=== PATIENT | male | born 1940 | race Caucasian/White ===

== ENCOUNTER 2017-07-30 10:15 | Outpatient (RCR) | payer MEDICARE, OTHER, SELFPAY ==
[2017-06-30 01:21] VITALS: BP 160/80
--- NOTE | 2017-07-30 13:33 | PCM.CR.ITP ---
Exercise - Initial Assessment - Stages of Change Stages of Change:: Contemplate - Exercise Prescription Mode:: Treadmill, Biodyne, Airdyne, NuStep, Arm Ergometer Angina with exercise?: No - Hypertension Do any of the following apply?: Yes - Intervention Home Exercise/Activity Goal:: Sitting Time <3 hrs/day - Education Goals:: Warm-up, RPE SEKOU Scale, S/S, Safe Exercise, Self-Monitoring - Exercise Program Goals Exercise Program Goals: Aerobic Activity >30 min, B/P <140/90 Exercise - 30-day Assessment - Visit Date of Eval: 06/27/17 - Stages of Change Stages of Change:: Action - Exercise Prescription Mode:: Treadmill, Rower, Airdyne, NuStep Frequency (x/week): 3 Duration:: 35 METs - Progression: 0.5-1 MET as tolerated: 4.5 Target Heart Rate:: 108-116 Max HR 113 - Intervention Home Exercise/Activity Goal:: Sitting Time <3 hrs/day - Education Goals:: Warm-up, RPE SEKOU Scale, S/S, Safe Exercise, Self-Monitoring - Exercise Program Goals Exercise Program Goals: Aerobic Activity >30 min Exercise - 60-Day Assessment - Visit Date of Eval: 07/30/17 Session #:: 27 - Stages of Change Stages of Change:: Action - Exercise Prescription Mode:: Treadmill, Airdyne, NuStep Frequency (x/week): 3 Duration:: 30 METs: 5.5 Target Heart Rate:: 108-116 max HR 111 - Hypertension Resting Blood Pressure:: 146/50 Peak Exercise Blood Pressure:: 170/84 Medication Changes:: No - Intervention Home Exercise/Activity Goal:: Moderate Exercise 30 min/day x 5 days/wk - Education Goals:: Warm-up, RPE SEKOU Scale, S/S, Safe Exercise, Self-Monitoring - Exercise Program Goals Exercise Program Goals: Aerobic Activity >30 min Exercise - Final/Discharge - Hypertension Do any of the following apply?: Yes Nutrition - Initial Assessment - Program Goals Nutrition Program Goals: LDL <70. Total Cholesterol <200. HDL >45. Triglycerides <150. HgbA1C <7%. BMI <25 - Stages of Change Stages of Change:: Contemplate - Diabetes Diabetes:: No Non-Insulin Dependent?: No - Weight Management Total Score:: 2 - Intervention Referral to dietitian:: No Referral to Diabetic Clinic:: No Will attend diet classes:: Yes - Education Gave educational materials for:: Signs & symptoms of hypoglycemia, Signs & symptoms of hyperglycemia, Relate diabetes to coronary artery disease, Healthy eating Nutrition - 30-Day Assessment - Program Goals Nutrition Program Goals: LDL <70. Total Cholesterol <200. HDL >45. Triglycerides <150. HgbA1C <7%. BMI <25 - Stages of Change Stages of Change:: Action - Lipids Has the patient seen the dietitian?: No - Diabetes Diabetes:: No Insulin: No Non-Insulin Dependent?: No - Intervention Referral to dietitian:: No Referral to Diabetic Clinic:: No Will attend diet classes:: Yes - Education Attended class for:: Signs & symptoms of hypoglycemia, Signs & symptoms of hyperglycemia, Relate diabetes to coronary artery disease, Healthy eating Nutrition - 60-Day Assessment - Program Goals Nutrition Program Goals: LDL <70. Total Cholesterol <200. HDL >45. Triglycerides <150. HgbA1C <7%. BMI <25 - Visit Date of Eval: 07/30/17 - session # 27 - Stages of Change Stages of Change:: Action - Lipids Has the patient seen the dietitian?: No - Diabetes Diabetes:: No Insulin: No Non-Insulin Dependent?: No - Weight Management Weight:: 84.368 kg - stable - Intervention Referral to dietitian:: No Referral to Diabetic Clinic:: No Will attend diet classes:: Yes - Education Attended class for:: Signs & symptoms of hypoglycemia, Signs & symptoms of hyperglycemia, Relate diabetes to coronary artery disease, Healthy eating Nutrition - 90-Day Assessment - Program Goals Nutrition Program Goals: LDL <70. Total Cholesterol <200. HDL >45. Triglycerides <150. HgbA1C <7%. BMI <25 - Lipids Has the patient seen the dietitian?: No - Diabetes Diabetes:: No Insulin: No Non-Insulin Dependent?: No - Intervention Referral to dietitian:: No Referral to Diabetic Clinic:: No Will attend diet classes:: Yes - Education Attended class for:: Signs & symptoms of hypoglycemia, Signs & symptoms of hyperglycemia, Relate diabetes to coronary artery disease, Healthy eating Nutrition - Final Assessment - Program Goals Nutrition Program Goals: LDL <70. Total Cholesterol <200. HDL >45. Triglycerides <150. HgbA1C <7%. BMI <25 - Diabetes Diabetes:: No Insulin: No Non-Insulin Dependent?: No - Weight Management Total Score:: 2 - Intervention Referral to dietitian:: No Referral to Diabetic Clinic:: No Will attend diet classes:: Yes Tobacco - Initial Assessment - Program Goals Tobacco Program Goals: Complete smoking cessation. Attend education classes. Improve Knowledge Test score - Stage of Change Stages of Change:: Contemplate - Learning Barriers Learning Barriers: Vision Total Score:: 9 - Family Support Do you have family support?: Yes - Tobacco Use Tobacco Use: Non-smoker Do you use smokeless tobacco?: No - Intervention Smoking Cessation Referral:: No Individual Education/Counseling:: No Education Schedule Given:: Yes - Education Gave educational material for:: Tobacco triggers, Coronary artery disease, Risk factors, Sexuality, Medical compliance, Cardiac A&P, Angina signs & symptoms Tobacco - 30-Day Assessment - Program Goals Tobacco Program Goals: Complete smoking cessation. Attend education classes. Improve Knowledge Test score - Stage of Change Stages of Change:: Action - Learning Barriers Learning Barriers: Participates in education - Family Support Do you have family support?: Yes - Tobacco Use Tobacco Use: Non-smoker Do you use smokeless tobacco?: No - Intervention Smoking Cessation Referral:: No Individual Education/Counseling:: No Education Schedule Given:: Yes - Education Attended class for:: Tobacco triggers, Coronary artery disease, Risk factors, Sexuality, Medical compliance, Cardiac A&P, Angina signs & symptoms Tobacco - 60-Day Assessment - Program Goals Tobacco Program Goals: Complete smoking cessation. Attend education classes. Improve Knowledge Test score - Stage of Change Stages of Change:: Action - Learning Barriers Learning Barriers: Participates in education - Family Support Do you have family support?: Yes - Tobacco Use Tobacco Use: Non-smoker Do you use smokeless tobacco?: No - Intervention Smoking Cessation Referral:: No Individual Education/Counseling:: No Education Schedule Given:: Yes - Education Attended class for:: Tobacco triggers, Coronary artery disease, Risk factors, Sexuality, Medical compliance, Cardiac A&P, Angina signs & symptoms Tobacco - 90-Day Assessment - Program Goals Tobacco Program Goals: Complete smoking cessation. Attend education classes. Improve Knowledge Test score - Family Support Do you have family support?: Yes - Tobacco Use Tobacco Use: Non-smoker Do you use smokeless tobacco?: No - Intervention Smoking Cessation Referral:: No Individual Education/Counseling:: No Education Schedule Given:: Yes - Education Attended class for:: Tobacco triggers, Coronary artery disease, Risk factors, Sexuality, Medical compliance, Cardiac A&P, Angina signs & symptoms Tobacco - Final Assessment - Program Goals Tobacco Program Goals: Complete smoking cessation. Attend education classes. Improve Knowledge Test score - Learning Barriers Cardiac Knowledge Test Score:: 9 - Family Support Do you have family support?: Yes - Tobacco Use Tobacco Use: Non-smoker Do you use smokeless tobacco?: No - Intervention Smoking Cessation Referral:: No Individual Education/Counseling:: No Education Schedule Given:: Yes Psychosocial - Initial Assess - Target Goals Target Goals: Assess presence or absence of depression. Using a valid screening tool, maximizes coping skills. Positive support system - Stages of Change Stages of Change:: Contemplate - Psychosocial Test Tool Used:: HANDS Depression Questionnaire Tests Completed: SF - 36 survey completed Total Mood Screening Score:: 0 Self-Efficacy Score:: 10 - Education Gave educational materials for:: Coping techniques, Signs & symptoms of depression, Stress management, Relaxation techniques - Patient/Program Goal Preventative Medication(s):: Aspirin, STARR inhibitor, Clopidogrel, Beta anna, Statin/lipid - Assistive Devices Assistive Devices:: None Fall Risk Assessed:: Yes Psychosocial - 30-Day Assess - Target Goals Target Goals: Assess presence or absence of depression. Using a valid screening tool, maximizes coping skills. Positive support system - Psychosocial Test Tool Used:: HANDS Depression Questionnaire Total Mood Screening Score:: 0 Self-Efficacy Score:: 10 - Patient/Program Goal Preventative Medication(s):: Aspirin, STARR inhibitor, Clopidogrel, Beta anna, Statin/lipid - Assistive Devices Assistive Devices:: None Fall Risk Assessed:: Yes Psychosocial - 60-Day Assess - Target Goals Target Goals: Assess presence or absence of depression. Using a valid screening tool, maximizes coping skills. Positive support system - Stages of Change Stages of Change:: Action - Psychosocial Test Tool Used:: HANDS Depression Questionnaire Total Mood Screening Score:: 0 Self-Efficacy Score:: 10 - Intervention PS - Interventions: Yes Attend Stress Management Classes, Yes Uses Stress Management Skills, No Referral to Mental Health, No Referral to [facility] Case Management, No Referral to Physician - Education Attended classes for:: Coping techniques, Signs & symptoms of depression, Stress management, Relaxation techniques - Patient/Program Goal Preventative Medication(s):: Aspirin, STARR inhibitor, Clopidogrel, Beta anna, Statin/lipid - Assistive Devices Assistive Devices:: None Fall Risk Assessed:: Yes Psychosocial - 90-Day Assess - Target Goals Target Goals: Assess presence or absence of depression. Using a valid screening tool, maximizes coping skills. Positive support system - Psychosocial Test Tool Used:: HANDS Depression Questionnaire Total Mood Screening Score:: 0 Self-Efficacy Score:: 10 - Education Attended classes for:: Coping techniques, Signs & symptoms of depression, Stress management, Relaxation techniques - Patient/Program Goal Preventative Medication(s):: Aspirin, STARR inhibitor, Clopidogrel, Beta anna, Statin/lipid - Assistive Devices Assistive Devices:: None Fall Risk Assessed:: Yes Psychosocial - Final Assessmen - Target Goals Target Goals: Assess presence or absence of depression. Using a valid screening tool, maximizes coping skills. Positive support system - Psychosocial Test Tool Used:: HANDS Depression Questionnaire Tests Completed: SF - 36 survey completed Total Mood Screening Score:: 0 Self-Efficacy Score:: 10 - Patient/Program Goal Preventative Medication(s):: Aspirin, STARR inhibitor, Clopidogrel, Beta anna, Statin/lipid - Assistive Devices Assistive Devices:: None Fall Risk Assessed:: Yes Patient Health Questionnaire 60-Day Re-eval Assessment 1. Little interest or pleasure in doing things: Not at all 2. Feeling down, depressed, or hopeless: Not at all 3. Trouble falling or staying asleep, or sleeping too much: Not at all 4. Feeling tired or having little energy: Not at all 5. Poor appetite or overeating: Not at all 6. Feeling bad about yourself -- or that you are a failure or have let yourself or your family down: Not at all 7. Trouble concentrating on things, such as reading the newspaper or watching television: Not at all 8. Moving or speaking so slowly that other people could have noticed. Or the opposite - being so fidgety or restless that you have been moving around a lot more than usual: Not at all 9. Thoughts that you would be better off , or of hurting yourself in some way: Not at all Total Score: 0 Self-Efficacy 60-Day Re-eval Assessment We would like to know how confident you are in doing certain activities. Please select your confidence level for:: Select your confidence level for the following using the scale 1-10 where 1 is not at all confident and 10 is totally confident. Your score is the average of all 6 responses. Fatigue: How confident are you that you can keep the fatigue caused by your disease from interfering with the things you want to do? Select Number: 10 Physical Discomfort or Pain: How confident are you that you can keep the physical discomfort or pain of your disease from interfering with the things you want to do? Select Number: 10 Emotional Distress: How confident are you that you can keep the emotional distress caused by your disease from interfering with the things you want to do? Select Number: 10 Other Symptoms or Health Problems: How confident are you that you can keep other symptoms or health problems from interfering with the things you want to do? Select Number: 10 Different Tasks and Activities: How confident are you that you can do the different tasks and activities needed to manage your health condition so as to reduce your need to see a doctor? Select Number: 10 Medication: How confident are you that you can do things other than just taking medication to reduce how much your illness affects your everyday life? Select Number: 10 Total Score:: 10 Cardiac Rehabilitation Goals - Cardiac Rehab Goals Cardiac Rehabilitation Goals: 1. Maintain the individual as the primary focus of care. 2. To improve the patient's quality of life. 3. Identification of cardiac risk factors and provide cardiac risk factor management. 4. Enhance the psychosocial status of the patient. 5. Reconditioning enough to allow the patient to resume customary activities. 6. Control symptoms of cardiac disease - Scale Scale for measuring improvement of personal goals: Enter appropriate number in Comments. 2 = Unchanged. 3 = Slightly Better. 4 = Moderate Improvement. 5 = Met my Goal 60-Day Re-eval Assessment Personal Goals: 60-day Re-assessment: Improve energy level - goal met, Improve knowledge of cardiac disease - still learning, Improve muscle strength and endurance - feel much stronger, Improve diet and eating habits (eat healthier) - eating healthier, Control risk factors (learn risk factor modification) - doing better, making healthier decisions.
[2017-07-30 13:37] VITALS: BP 146/50; BP 170/84
== END 2017-07-30 23:59 ==
LOC: CR 10:15
PROVIDERS: Family Provider Family Medicine; PCP Family Medicine; Visit Provider Internal Medicine Cardiovascular Disease
DX: I48.92 Unspecified atrial flutter (principal); Z95.1 Presence of aortocoronary bypass graft; I48.91 Unspecified atrial fibrillation; I25.10 Atherosclerotic heart disease of native coronary artery without angina pectoris; I10 Essential (primary) hypertension; E78.5 Hyperlipidemia, unspecified; Z98.61 Coronary angioplasty status; Z79.01 Long term (current) use 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; Z79.899 Other long term (current) drug therapy
CPT/HCPCS: 93798

== ENCOUNTER 2017-08-01 11:34 | Outpatient (RCR) | payer MEDICARE, OTHER, SELFPAY ==
[2017-07-31 14:07] VITALS: BP 140/64; BMI 25.8
[2017-08-01 11:46] LABS: Prothrombin Time Fingerstick 27.8 SEC (11.9-14.4)
== END 2017-08-01 15:00 | disposition home or self-care (01) ==
LOC: MTLAB 11:34
PROVIDERS: Family Provider Family Medicine; PCP Family Medicine; Visit Provider Internal Medicine Cardiovascular Disease
DX: I48.91 Unspecified atrial fibrillation (principal); Z79.899 Other long term (current) drug therapy; Z95.1 Presence of aortocoronary bypass graft; I48.92 Unspecified atrial flutter; Z98.61 Coronary angioplasty status; I25.10 Atherosclerotic heart disease of native coronary artery without angina pectoris; I10 Essential (primary) hypertension; E78.5 Hyperlipidemia, unspecified
CPT/HCPCS: 36416; 85610; 93798

== ENCOUNTER 2017-08-20 10:15 | Outpatient (RCR) | payer MEDICARE, OTHER, SELFPAY ==
[2017-07-31 00:46] VITALS: BP 146/50; BP 170/84
[2017-07-31 14:07] VITALS: BP 140/64; BMI 25.8
[2017-08-26 07:46] VITALS: BP 146/64
--- NOTE | 2017-08-26 07:47 | CR.ITP_ITS ---
Exercise - Initial Assessment - Stages of Change Stages of Change:: Contemplate - Exercise Prescription Mode:: Treadmill, Biodyne, Airdyne, NuStep, Arm Ergometer Angina with exercise?: No - Hypertension Do any of the following apply?: Yes - Intervention Home Exercise/Activity Goal:: Sitting Time <3 hrs/day - Education Goals:: Warm-up, RPE SEKOU Scale, S/S, Safe Exercise, Self-Monitoring - Exercise Program Goals Exercise Program Goals: Aerobic Activity >30 min, B/P <140/90 Exercise - 30-day Assessment - Visit Date of Eval: 06/27/17 - Stages of Change Stages of Change:: Action - Exercise Prescription Mode:: Treadmill, Rower, Airdyne, NuStep Frequency (x/week): 3 Duration:: 35 METs - Progression: 0.5-1 MET as tolerated: 4.5 Target Heart Rate:: 108-116 Max HR 113 - Intervention Home Exercise/Activity Goal:: Sitting Time <3 hrs/day - Education Goals:: Warm-up, RPE SEKOU Scale, S/S, Safe Exercise, Self-Monitoring - Exercise Program Goals Exercise Program Goals: Aerobic Activity >30 min Exercise - 60-Day Assessment - Visit Date of Eval: 07/30/17 - session # 27 - Stages of Change Stages of Change:: Action - Exercise Prescription Mode:: Treadmill, Airdyne, NuStep Frequency (x/week): 3 Duration:: 30 METs: 5.5 Target Heart Rate:: 108-116 max HR 111 - Hypertension Medication Changes:: No - Intervention Home Exercise/Activity Goal:: Moderate Exercise 30 min/day x 5 days/wk - Education Goals:: Warm-up, RPE SEKOU Scale, S/S, Safe Exercise, Self-Monitoring - Exercise Program Goals Exercise Program Goals: Aerobic Activity >30 min Exercise - 90-Day Assessment - Visit Date of Eval: 07/30/17 - session # 27 - Stages of Change Stages of Change:: Action - Exercise Prescription Mode:: Treadmill, Airdyne, NuStep Frequency (x/week): 3 Duration:: 30 METs: 5.5 Target Heart Rate:: 108-116 max HR 111 - Hypertension Medication Changes:: No - Intervention Home Exercise/Activity Goal:: Moderate Exercise 30 min/day x 5 days/wk - Education Goals:: Warm-up, RPE SEKOU Scale, S/S, Safe Exercise, Self-Monitoring - Exercise Program Goals Exercise Program Goals: Aerobic Activity >30 min Exercise - Final/Discharge - Visit Date of Eval: 08/26/17 - Patient completed CR 08/20/2017 - Stages of Change Stages of Change:: Action - Exercise Prescription Mode:: Treadmill, Rower, Airdyne, NuStep Frequency (x/week): 3 Duration:: 30 METs: 5.5 Target Heart Rate:: 108-116 w/ MAx HR 103 - Hypertension Do any of the following apply?: Yes Resting Blood Pressure:: 146/64 Peak Exercise Blood Pressure:: 146/64 - Intervention Home Exercise/Activity Goal:: Moderate Exercise 30 min/day x 5 days/wk - Education Goal Progress: Goal Met - Exercise Program Goals Exercise Program Goals: Aerobic Activity >30 min Nutrition - Initial Assessment - Program Goals Nutrition Program Goals: LDL <70. Total Cholesterol <200. HDL >45. Triglycerides <150. HgbA1C <7%. BMI <25 - Stages of Change Stages of Change:: Contemplate - Diabetes Diabetes:: No Non-Insulin Dependent?: No - Weight Management Total Score:: 2 - Intervention Referral to dietitian:: No Referral to Diabetic Clinic:: No Will attend diet classes:: Yes - Education Gave educational materials for:: Signs & symptoms of hypoglycemia, Signs & symptoms of hyperglycemia, Relate diabetes to coronary artery disease, Healthy eating Nutrition - 30-Day Assessment - Program Goals Nutrition Program Goals: LDL <70. Total Cholesterol <200. HDL >45. Triglycerides <150. HgbA1C <7%. BMI <25 - Stages of Change Stages of Change:: Action - Lipids Has the patient seen the dietitian?: No - Diabetes Diabetes:: No Insulin: No Non-Insulin Dependent?: No - Intervention Referral to dietitian:: No Referral to Diabetic Clinic:: No Will attend diet classes:: Yes - Education Attended class for:: Signs & symptoms of hypoglycemia, Signs & symptoms of hyperglycemia, Relate diabetes to coronary artery disease, Healthy eating Nutrition - 60-Day Assessment - Program Goals Nutrition Program Goals: LDL <70. Total Cholesterol <200. HDL >45. Triglycerides <150. HgbA1C <7%. BMI <25 - Visit Date of Eval: 07/30/17 - session # 27 - Stages of Change Stages of Change:: Action - Lipids Has the patient seen the dietitian?: No - Diabetes Diabetes:: No Insulin: No Non-Insulin Dependent?: No - Intervention Referral to dietitian:: No Referral to Diabetic Clinic:: No Will attend diet classes:: Yes - Education Attended class for:: Signs & symptoms of hypoglycemia, Signs & symptoms of hyperglycemia, Relate diabetes to coronary artery disease, Healthy eating Nutrition - 90-Day Assessment - Program Goals Nutrition Program Goals: LDL <70. Total Cholesterol <200. HDL >45. Triglycerides <150. HgbA1C <7%. BMI <25 - Visit Date of Eval: 07/30/17 - session # 27 - Stages of Change Stages of Change:: Action - Lipids Has the patient seen the dietitian?: No - Diabetes Diabetes:: No Insulin: No Non-Insulin Dependent?: No - Intervention Referral to dietitian:: No Referral to Diabetic Clinic:: No Will attend diet classes:: Yes - Education Attended class for:: Signs & symptoms of hypoglycemia, Signs & symptoms of hyperglycemia, Relate diabetes to coronary artery disease, Healthy eating Nutrition - Final Assessment - Program Goals Nutrition Program Goals: LDL <70. Total Cholesterol <200. HDL >45. Triglycerides <150. HgbA1C <7%. BMI <25 - Visit Date of Eval: 08/26/17 - final discharge 08/20/2017 - Stages of Change Stages of Change:: Action - Diabetes Diabetes:: No Insulin: No Non-Insulin Dependent?: No - Weight Management Height: 5 ft 11 in Weight:: 85.049 kg - stable weight Total Score:: 2 - Intervention Referral to dietitian:: No Referral to Diabetic Clinic:: No Will attend diet classes:: Yes - Education Education Goal Reached?: Yes Tobacco - Initial Assessment - Program Goals Tobacco Program Goals: Complete smoking cessation. Attend education classes. Improve Knowledge Test score - Stage of Change Stages of Change:: Contemplate - Learning Barriers Learning Barriers: Vision Total Score:: 9 - Family Support Do you have family support?: Yes - Tobacco Use Tobacco Use: Non-smoker Do you use smokeless tobacco?: No - Intervention Smoking Cessation Referral:: No Individual Education/Counseling:: No Education Schedule Given:: Yes - Education Gave educational material for:: Tobacco triggers, Coronary artery disease, Risk factors, Sexuality, Medical compliance, Cardiac A&P, Angina signs & symptoms Tobacco - 30-Day Assessment - Program Goals Tobacco Program Goals: Complete smoking cessation. Attend education classes. Improve Knowledge Test score - Stage of Change Stages of Change:: Action - Learning Barriers Learning Barriers: Participates in education - Family Support Do you have family support?: Yes - Tobacco Use Tobacco Use: Non-smoker Do you use smokeless tobacco?: No - Intervention Smoking Cessation Referral:: No Individual Education/Counseling:: No Education Schedule Given:: Yes - Education Attended class for:: Tobacco triggers, Coronary artery disease, Risk factors, Sexuality, Medical compliance, Cardiac A&P, Angina signs & symptoms Tobacco - 60-Day Assessment - Program Goals Tobacco Program Goals: Complete smoking cessation. Attend education classes. Improve Knowledge Test score - Stage of Change Stages of Change:: Action - Learning Barriers Learning Barriers: Participates in education - Family Support Do you have family support?: Yes - Tobacco Use Tobacco Use: Non-smoker Do you use smokeless tobacco?: No - Intervention Smoking Cessation Referral:: No Individual Education/Counseling:: No Education Schedule Given:: Yes - Education Attended class for:: Tobacco triggers, Coronary artery disease, Risk factors, Sexuality, Medical compliance, Cardiac A&P, Angina signs & symptoms Tobacco - 90-Day Assessment - Program Goals Tobacco Program Goals: Complete smoking cessation. Attend education classes. Improve Knowledge Test score - Stage of Change Stages of Change:: Action - Learning Barriers Learning Barriers: Participates in education - Family Support Do you have family support?: Yes - Tobacco Use Tobacco Use: Non-smoker Do you use smokeless tobacco?: No - Intervention Smoking Cessation Referral:: No Individual Education/Counseling:: No Education Schedule Given:: Yes - Education Attended class for:: Tobacco triggers, Coronary artery disease, Risk factors, Sexuality, Medical compliance, Cardiac A&P, Angina signs & symptoms Tobacco - Final Assessment - Program Goals Tobacco Program Goals: Complete smoking cessation. Attend education classes. Improve Knowledge Test score - Stage of Change Stages of Change:: Action - Learning Barriers Cardiac Knowledge Test Score:: 10 - Family Support Do you have family support?: Yes - Tobacco Use Tobacco Use: Non-smoker Do you use smokeless tobacco?: No - Intervention Smoking Cessation Referral:: No Individual Education/Counseling:: No Education Schedule Given:: Yes - Education Education Goal Reached?: Yes Psychosocial - Initial Assess - Target Goals Target Goals: Assess presence or absence of depression. Using a valid screening tool, maximizes coping skills. Positive support system - Stages of Change Stages of Change:: Contemplate - Psychosocial Test Tool Used:: HANDS Depression Questionnaire Tests Completed: SF - 36 survey completed Total Mood Screening Score:: 0 Self-Efficacy Score:: 10 - Intervention PS - Interventions: Yes Attend Stress Management Classes, Yes Uses Stress Management Skills, No Referral to Mental Health, No Referral to [facility] Case Management, No Referral to Physician - Patient/Program Goal Preventative Medication(s):: Aspirin, STARR inhibitor, Clopidogrel, Beta anna, Statin/lipid - Assistive Devices Assistive Devices:: None Fall Risk Assessed:: Yes Psychosocial - 30-Day Assess - Target Goals Target Goals: Assess presence or absence of depression. Using a valid screening tool, maximizes coping skills. Positive support system - Psychosocial Test Tool Used:: HANDS Depression Questionnaire Total Mood Screening Score:: 0 Self-Efficacy Score:: 10 - Patient/Program Goal Preventative Medication(s):: Aspirin, STARR inhibitor, Clopidogrel, Beta anna, Statin/lipid - Assistive Devices Assistive Devices:: None Fall Risk Assessed:: Yes Psychosocial - 60-Day Assess - Target Goals Target Goals: Assess presence or absence of depression. Using a valid screening tool, maximizes coping skills. Positive support system - Stages of Change Stages of Change:: Action - Psychosocial Test Tool Used:: HANDS Depression Questionnaire Total Mood Screening Score:: 0 Self-Efficacy Score:: 10 - Patient/Program Goal Preventative Medication(s):: Aspirin, STARR inhibitor, Clopidogrel, Beta anna, Statin/lipid - Assistive Devices Assistive Devices:: None Fall Risk Assessed:: Yes Psychosocial - 90-Day Assess - Target Goals Target Goals: Assess presence or absence of depression. Using a valid screening tool, maximizes coping skills. Positive support system - Stages of Change Stages of Change:: Action - Psychosocial Test Tool Used:: HANDS Depression Questionnaire Total Mood Screening Score:: 0 Self-Efficacy Score:: 10 - Patient/Program Goal Preventative Medication(s):: Aspirin, STARR inhibitor, Clopidogrel, Beta anna, Statin/lipid - Assistive Devices Assistive Devices:: None Fall Risk Assessed:: Yes Psychosocial - Final Assessmen - Target Goals Target Goals: Assess presence or absence of depression. Using a valid screening tool, maximizes coping skills. Positive support system - Stages of Change Stages of Change:: Action - Psychosocial Test Tool Used:: HANDS Depression Questionnaire Tests Completed: SF - 36 survey completed Total Mood Screening Score:: 0 Self-Efficacy Score:: 10 - Intervention PS - Interventions: Yes Attend Stress Management Classes, Yes Uses Stress Management Skills, No Referral to Mental Health, No Referral to [facility] Case Management, No Referral to Physician - Education Education Goal Reached?: Yes - Patient/Program Goal Preventative Medication(s):: Aspirin, STARR inhibitor, Clopidogrel, Beta anna, Statin/lipid - Assistive Devices Assistive Devices:: None Fall Risk Assessed:: Yes Patient Health Questionnaire Discharge Assessment 1. Little interest or pleasure in doing things: Not at all 2. Feeling down, depressed, or hopeless: Not at all 3. Trouble falling or staying asleep, or sleeping too much: Not at all 4. Feeling tired or having little energy: Not at all 5. Poor appetite or overeating: Not at all 6. Feeling bad about yourself -- or that you are a failure or have let yourself or your family down: Not at all 7. Trouble concentrating on things, such as reading the newspaper or watching television: Not at all 8. Moving or speaking so slowly that other people could have noticed. Or the opposite - being so fidgety or restless that you have been moving around a lot more than usual: Not at all 9. Thoughts that you would be better off , or of hurting yourself in some way: Not at all Total Score: 0 Knowledge Test - Check your knowledge Discharge The #1 cause of in the [place] each year is:: Heart disease Which of the following is a common treatment for heart disease?: All of the above The arteries that feed the heart are called:: Coronary arteries HDL cholesterol is known as the good cholesterol.: True What disease increases your risk for heart disease?: Diabetes What food product raises blood cholesterol level the most?: Saturated fat The bad cholesterol in the blood is called:: LDL Hypertension is another word for:: High blood pressure A blood pressure reading of 148/88 is considered normal.: False Exercise will only benefit your health when your heart rate reaches a target level.: False Total Score:: 10 Self-Efficacy Discharge Assessment We would like to know how confident you are in doing certain activities. Please select your confidence level for:: Select your confidence level for the following using the scale 1-10 where 1 is not at all confident and 10 is totally confident. Your score is the average of all 6 responses. Fatigue: How confident are you that you can keep the fatigue caused by your disease from interfering with the things you want to do? Select Number: 10 Physical Discomfort or Pain: How confident are you that you can keep the physical discomfort or pain of your disease from interfering with the things you want to do? Select Number: 10 Emotional Distress: How confident are you that you can keep the emotional distress caused by your disease from interfering with the things you want to do? Select Number: 10 Other Symptoms or Health Problems: How confident are you that you can keep other symptoms or health problems from interfering with the things you want to do? Select Number: 9 Different Tasks and Activities: How confident are you that you can do the different tasks and activities needed to manage your health condition so as to reduce your need to see a doctor? Select Number: 10 Medication: How confident are you that you can do things other than just taking medication to reduce how much your illness affects your everyday life? Select Number: 10 Total Score:: 9 Nutrition Survey - Nutrition Survey Instructions Scoring Instructions: Scoring is as follows: Yes = 1 points. No = 0 point. Patient score that is >/=12 is considered to be at potential nutritional risk and could benefit from a referral to a registered dietitian. - Nutrition Survey Discharge Have you lost >10 lbs over the past 2 months without trying?: No Are you following a special diet at home for diabetes, low fat, or low salt?: No Are you interested in meeting with a dietitian for help understanding your diet? : No Do you eat less than 3 meals a day?: No Do you eat fatty meats (huerta, sausage, ribs, etc), fried foods, desserts, large amounts of salad dressings, margarine, butter, or cheese most days?: No Do you have food allergies? [Enter types in comment field]: No Do you eat in restaurants more than 3 times a week?: Yes Do you season food with salt, seasoning salt, or garlic salt?: No Do you used canned, boxed, frozen meals, or soups, seasoning packets?: Yes Total Score:: 2 Cardiac Rehabilitation Goals - Cardiac Rehab Goals Cardiac Rehabilitation Goals: 1. Maintain the individual as the primary focus of care. 2. To improve the patient's quality of life. 3. Identification of cardiac risk factors and provide cardiac risk factor management. 4. Enhance the psychosocial status of the patient. 5. Reconditioning enough to allow the patient to resume customary activities. 6. Control symptoms of cardiac disease - Scale Scale for measuring improvement of personal goals: Enter appropriate number in Comments. 2 = Unchanged. 3 = Slightly Better. 4 = Moderate Improvement. 5 = Met my Goal Discharge Assessment Personal Goals: Discharge Reassessment: Improve management of stress and emotions, Improve energy level, Participate in home exercise program, Get back to work, or to resume activities faster, Improve knowledge of cardiac disease, Improve muscle strength and endurance, Improve diet and eating habits (eat healthier), Control risk factors (learn risk factor modification)
== END 2017-08-27 23:59 ==
LOC: CR 10:15
PROVIDERS: Family Provider Family Medicine; PCP Family Medicine; Visit Provider Internal Medicine Cardiovascular Disease
DX: I48.92 Unspecified atrial flutter (principal); Z95.1 Presence of aortocoronary bypass graft; I48.91 Unspecified atrial fibrillation; I25.10 Atherosclerotic heart disease of native coronary artery without angina pectoris; I10 Essential (primary) hypertension; E78.5 Hyperlipidemia, unspecified; Z98.61 Coronary angioplasty status; Z79.01 Long term (current) use 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; Z79.899 Other long term (current) drug therapy
CPT/HCPCS: 93798

== ENCOUNTER → 2017-08-21 08:56 | Outpatient (CLI) | payer MEDICARE, OTHER, SELFPAY ==
[2017-07-31 14:07] VITALS: BP 140/64; BMI 25.8
--- NOTE | 2017-08-21 09:00 | CDU_ITS ---
Reason For Study: Carotid stenosis Rt. Velocities/BP Lt. Velocities/BP Prox CCA 96.2/18.2 cm/sec. Prox CCA 106.0/22.9 cm/sec. Mid CCA 88.5/20.5 cm/sec. Mid CCA 99.1/22.9 cm/sec. Dist CCA 86.2/21.7 cm/sec. Dist CCA 80.3/18.2 cm/sec. Prox ICA 160.0/38.3 cm/sec. Prox ICA 182.0/47.1 cm/sec. Mid ICA 143.0/36.3 cm/sec. Mid ICA 142.0/33.8 cm/sec. Dist ICA 120.0/45.2 cm/sec. Dist ICA 138.0/36.1 cm/sec. Rt. ICA/CCA = 1.8. Lt. ICA/CCA = 1.8. Prox ECA 95.0/12.3 cm/sec. Prox ECA 352.0/33.7 cm/sec. Rt. Vert. 59.2/12.9 cm/sec. Right Extracranial There is heterogeneous, irregular atherosclerotic plaque noted in the right common carotid artery. There is heterogeneous, irregular atherosclerotic plaque noted in the right internal carotid artery. There is intimal thickening but no significant atherosclerotic plaque noted in the right external carotid artery. Antegrade flow is noted in the right vertebral artery. Left Extracranial There is intimal thickening but no significant atherosclerotic plaque noted in the left common carotid artery. There is heterogeneous, irregular atherosclerotic plaque noted in the left internal carotid artery. There is heterogeneous, irregular atherosclerotic plaque noted in the left external carotid artery. Retrograde flow Lt Vert. Interpretation Summary Moderate (50-69%) stenosis right extracranial internal carotid. Moderate (50-69%) stenosis left extracranial internal carotid. Flow within the right verterbral artery is antegrade. Flow within the left verterbral artery is retrograde, consistent with a subclavian steal phenomenon. Ordering Physician: Singh Khanna Referring Physician: Singh Khanna Performed By: Jayne Dugan RVT
--- NOTE | 2017-08-21 09:00 | AAVD_ITS ---
Reason For Study: SMA stenosis Aorta Measurements Prox Aorta - 146.0 cm/sec Dist Aorta - 108.0 cm/sec SMA origin - 363.0 cm/sec SMA prox - 296.0 cm/sec SMA mid - 204.0 cm/sec Celiac artery - 192.0 cm/sec Hepatic artery - 143.0/ cm/sec Splenic artery - 232.0 cm/sec LELAND origin - 412.0 cm/sec LELAND prox - 291.0 cm/sec LLEAND mid 125.0 cm/sec LELAND dist - 122.0 cm/sec. Procedure Aorta IVC Iliac vasculature or bypass grafts 12499. Technically difficult due to bowel gas. Exam performed in department. Interpretation Summary 1. 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 2. Celiac appears normal flow. Ordering Physician: Singh Khanna Referring Physician: Singh Khanna Performed By: Jayne Dugan RVT
== END ==
PROVIDERS: Family Provider Family Medicine; PCP Family Medicine; Visit Provider Surgery Vascular Surgery
DX: I65.23 Occlusion and stenosis of bilateral carotid arteries (principal); I77.1 Stricture of artery; E78.00 Pure hypercholesterolemia, unspecified; I10 Essential (primary) hypertension; I51.9 Heart disease, unspecified; K51.90 Ulcerative colitis, unspecified, without complications; D64.9 Anemia, unspecified
CPT/HCPCS: 93880; 93978

== ENCOUNTER 2017-08-29 13:16 | Outpatient (RCR) | payer MEDICARE, OTHER, SELFPAY ==
[2017-08-28 13:57] VITALS: BP 140/64; BMI 25.8
== END 2017-08-29 14:00 | disposition home or self-care (01) ==
LOC: MTLAB 13:16
PROVIDERS: Family Provider Family Medicine; PCP Family Medicine; Visit Provider Internal Medicine Cardiovascular Disease
DX: I48.91 Unspecified atrial fibrillation (principal); Z79.899 Other long term (current) drug therapy; Z95.1 Presence of aortocoronary bypass graft; I48.92 Unspecified atrial flutter; Z98.61 Coronary angioplasty status; I25.10 Atherosclerotic heart disease of native coronary artery without angina pectoris; I10 Essential (primary) hypertension; E78.5 Hyperlipidemia, unspecified; Z79.01 Long term (current) use 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
CPT/HCPCS: 36416; 85610

== ENCOUNTER 2017-09-15 13:05 | Outpatient (RCR) | payer MEDICARE, OTHER, SELFPAY ==
[2017-09-15 13:26] LABS: Prothrombin Time Fingerstick 21.7 SEC (11.9-14.4)
== END 2017-09-15 14:00 | disposition home or self-care (01) ==
LOC: MTLAB 13:05
PROVIDERS: Family Provider Family Medicine; PCP Family Medicine; Visit Provider Internal Medicine Cardiovascular Disease
DX: I48.91 Unspecified atrial fibrillation (principal); Z79.01 Long term (current) use 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
CPT/HCPCS: 36416; 85610

== ENCOUNTER 2017-10-22 14:07 | Outpatient (RCR) | payer MEDICARE, OTHER, SELFPAY ==
[2017-09-29 09:12] VITALS: BP 140/64; BMI 25.8
[2017-10-07 14:16] LABS: Prothrombin Time Fingerstick 17.3 SEC (11.9-14.4)
[2017-10-22 16:48] LABS: International Normalized Ratio 1.8
== END 2017-10-22 14:30 | disposition home or self-care (01) ==
LOC: MTLAB 14:07
PROVIDERS: Family Provider Family Medicine; PCP Family Medicine; Visit Provider Internal Medicine Cardiovascular Disease
DX: I48.91 Unspecified atrial fibrillation (principal); Z79.01 Long term (current) use 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
CPT/HCPCS: 36415; 36416; 85610

== ENCOUNTER → 2017-10-22 14:10 | Outpatient (CLI) | payer MEDICARE, OTHER, SELFPAY ==
[2017-10-22 15:51] LABS: Basophil# 0.01 X10^3/uL; Basophil% 0.2 % (0-1); Eosinophil# 0.05 X10^3/uL; Eosinophils% 1.2 % (0-5); Hematocrit 36.5 % (40-54); Hemoglobin 12.1 g/dl (13.0-16.5); Lymphocyte % 16.4 % (19-41); Mean Corp Hgb Conc 33.2 g/gl (32-36); Mean Corpuscular Hgb 36.1 pg (27.0-32.0); Mean Platelet Vol. 10.3 fl (6.2-12.0); Monocyte# 0.53 X10^3/uL; Monocyte% 12.4 % (0-10); Neutrophil # 2.96 X10^3/uL (2.7-7.7); Neutrophil % 69.6 % (47-70); POSITIVE COUNT NO; POSITIVE DIFFERENTIAL NO; POSITIVE MORPHOLOGY NO; Platelet Count 144 K/mm3 (150-450); RBC Distribution Width CV 12.8 % (11.6-14.6); Red Blood Count 3.35 M/mm3 (4.6-6.2); White Blood Count 4.3 K/mm3 (4.4-11.0)
== END ==
PROVIDERS: Family Provider Family Medicine; PCP Family Medicine; Visit Provider Internal Medicine Gastroenterology
DX: K51.90 Ulcerative colitis, unspecified, without complications (principal); I48.91 Unspecified atrial fibrillation; Z79.01 Long term (current) use 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
CPT/HCPCS: 36415; 85025; 85610

== ENCOUNTER 2017-11-14 10:20 | Outpatient (RCR) | payer MEDICARE, OTHER, SELFPAY ==
[2017-10-28 13:50] VITALS: BP 140/64; BMI 25.8
[2017-11-14 10:35] LABS: Prothrombin Time Fingerstick 26.5 SEC (11.9-14.4)
== END 2017-11-14 11:00 | disposition home or self-care (01) ==
LOC: MTLAB 10:20
PROVIDERS: Family Provider Family Medicine; PCP Family Medicine; Visit Provider Internal Medicine Cardiovascular Disease
DX: I48.91 Unspecified atrial fibrillation (principal); Z79.01 Long term (current) use 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
CPT/HCPCS: 36416; 85610

== ENCOUNTER 2017-12-18 15:09 | Outpatient (RCR) | payer MEDICARE, OTHER, SELFPAY ==
[2017-11-27 16:13] VITALS: BP 140/64; BMI 25.8
--- NOTE | 2017-12-08 08:35 | DT_ITS ---
This patient was seen during an EMR downtime December 01, 2017 - December 08, 2017. This patient may have a combination of paper and electronic documentation or all paper documentation. All documentation is viewable within the e-chart portion of [facility] for each patient visit.
[2017-12-08 10:38] LABS: Prothrombin Time (Protime)PT. 40.5 SECONDS (11.7-14.9)
[2017-12-08 10:44] LABS: International Normalized Ratio 4.2
[2017-12-08 10:53] LABS: AST(SGOT) 28 U/L (15-37); Alanine Aminotransfer ALT/SGPT 21 U/L (16-61); Albumin, Serum 3.9 g/dL (3.2-5.0); Alkaline Phosphatase 113 U/L (45-117); Bilirubin, Direct 0.14 mg/dL (0.00-0.30); Cholesterol 186 mg/dL (200); High Density Lipoprotein 69 mg/dL; Protein, Total 6.9 g/dL (6.4-8.2); Triglycerides 97 mg/dL; Very Low Density Lipoprotein 19 mg/dL (5-40)
[2017-12-18 15:20] LABS: Prothrombin Time Fingerstick 24.5 SEC (11.9-14.4)
== END 2017-12-18 16:00 | disposition home or self-care (01) ==
LOC: MTLAB 15:09
PROVIDERS: Family Provider Family Medicine; PCP Family Medicine; Visit Provider Internal Medicine Cardiovascular Disease
DX: I48.91 Unspecified atrial fibrillation (principal); Z79.01 Long term (current) use 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; Z79.899 Other long term (current) drug therapy
CPT/HCPCS: 36415; 36416; 80061; 80076; 85610

== ENCOUNTER → 2018-01-23 09:48 | Outpatient (CLI) | payer MEDICARE, OTHER, SELFPAY ==
[2018-01-23 11:26] LABS: International Normalized Ratio 2.9; Prothrombin Time (Protime)PT. 30.2 SECONDS (11.7-14.9)
[2018-01-23 12:27] LABS: Absolute Lymphocyte Count 0.69 X10^3/ul (0.83-4.51); Basophil# 0.02 X10^3/uL; Basophil% 0.5 % (0-1); Eosinophil# 0.09 X10^3/uL; Eosinophils% 2.1 % (0-5); Hematocrit 36.4 % (40-54); Hemoglobin 11.8 g/dl (13.0-16.5); Lymphocyte # 0.69 X10^3/ul (4.0); Lymphocyte % 16.1 % (19-41); Mean Corp Hgb Conc 32.4 g/gl (32-36); Mean Corpuscular Hgb 35.2 pg (27.0-32.0); Mean Corpuscular Volume 108.7 fL (80-94); Mean Platelet Vol. 10.2 fl (6.2-12.0); Monocyte# 0.47 X10^3/uL; Neutrophil # 3.02 X10^3/uL (2.7-7.7); Neutrophil % 70.3 % (47-70); Platelet Count 124 K/mm3 (150-450); RBC Distribution Width CV 14.1 % (11.6-14.6); RBC Distribution Width SD 56.2 fl (35.1-43.9); Red Blood Count 3.35 M/mm3 (4.6-6.2); White Blood Count 4.3 K/mm3 (4.4-11.0)
[2018-01-23 12:36] LABS: POSITIVE COUNT NO; POSITIVE DIFFERENTIAL NO; POSITIVE MORPHOLOGY NO
== END ==
PROVIDERS: Family Provider Family Medicine; PCP Family Medicine; Visit Provider Internal Medicine Gastroenterology
DX: I48.91 Unspecified atrial fibrillation (principal); Z79.01 Long term (current) use 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
CPT/HCPCS: 36415; 85025; 85610

== ENCOUNTER 2018-02-25 10:57 | Outpatient (RCR) | payer MEDICARE, OTHER, SELFPAY ==
[2017-12-26 16:25] VITALS: BP 140/64; BMI 25.8
[2018-02-25 11:10] LABS: Prothrombin Time Fingerstick 31.9 SEC (11.9-14.4)
== END 2018-02-25 12:00 | disposition home or self-care (01) ==
LOC: MTLAB 10:57
PROVIDERS: Family Provider Family Medicine; PCP Family Medicine; Visit Provider Internal Medicine Cardiovascular Disease
DX: I48.91 Unspecified atrial fibrillation (principal); Z79.01 Long term (current) use 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; Z79.899 Other long term (current) drug therapy
CPT/HCPCS: 36416; 85610

== ENCOUNTER → 2018-02-27 07:54 | Outpatient (CLI) | payer MEDICARE, OTHER, SELFPAY | PROVIDERS: Family Provider Family Medicine; PCP Family Medicine; Visit Provider Surgery Vascular Surgery | DX: I65.23 Occlusion and stenosis of bilateral carotid arteries (principal); I77.1 Stricture of artery; I10 Essential (primary) hypertension; E78.00 Pure hypercholesterolemia, unspecified; K51.90 Ulcerative colitis, unspecified, without complications; D64.9 Anemia, unspecified | CPT/HCPCS: 93978 ==

== ENCOUNTER 2018-03-24 10:20 | Outpatient (RCR) | payer MEDICARE, OTHER, SELFPAY ==
[2018-03-04 11:26] VITALS: BP 140/64; BMI 25.8
[2018-03-24 10:35] LABS: Prothrombin Time Fingerstick 40.4 SEC (11.9-14.4)
[2018-03-24 11:55] LABS: International Normalized Ratio 3.3; Prothrombin Time (Protime)PT. 33.8 SECONDS (11.7-14.9)
== END 2018-03-24 12:00 | disposition home or self-care (01) ==
LOC: MTLAB 10:20
PROVIDERS: Family Provider Family Medicine; PCP Family Medicine; Visit Provider Internal Medicine Cardiovascular Disease
DX: I48.91 Unspecified atrial fibrillation (principal)
CPT/HCPCS: 36415; 36416; 85610

== ENCOUNTER 2018-04-08 10:08 | Outpatient (RCR) | payer MEDICARE, OTHER, SELFPAY ==
[2018-03-31 11:49] VITALS: BP 140/64; BMI 25.8
[2018-04-08 10:31] LABS: Prothrombin Time Fingerstick 33.6 SEC (11.9-14.4)
== END 2018-04-08 11:00 | disposition home or self-care (01) ==
LOC: MTLAB 10:08
PROVIDERS: Family Provider Family Medicine; PCP Family Medicine; Referring Provider Internal Medicine Cardiovascular Disease; Visit Provider Internal Medicine Cardiovascular Disease
DX: I48.91 Unspecified atrial fibrillation (principal); I48.92 Unspecified atrial flutter; Z79.01 Long term (current) use 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
CPT/HCPCS: 36416; 85610

== ENCOUNTER 2018-04-15 09:00 | Day surgery (SDC) | payer MEDICARE, OTHER, SELFPAY ==
[2018-04-14 12:16] VITALS: BMI 25.7
[2018-04-15 09:24] LABS: Hematocrit 37.5 % (40-54); Hemoglobin 12.6 g/dl (13.0-16.5); Mean Corp Hgb Conc 33.6 g/gl (32-36); Mean Corpuscular Hgb 36.7 pg (27.0-32.0); Mean Corpuscular Volume 109.3 fL (80-94); Mean Platelet Vol. 9.4 fl (6.2-12.0); Platelet Count 114 K/mm3 (150-450); RBC Distribution Width SD 50.9 fl (35.1-43.9); Red Blood Count 3.43 M/mm3 (4.6-6.2); Scan Indicated on CBC? Y/N NO; White Blood Count 3.5 K/mm3 (4.4-11.0)
[2018-04-15 09:34] LABS: BUN 24 mg/dL (7-18); EST Glomerular Filtration Rate 45 mL/min (>60); Estimated Creatinine Clearance 41.83 ml/min; Glucose 86 mg/dL (74-106)
[2018-04-15 09:35] LABS: Calcium,Total 8.8 mg/dL (8.5-10.1); Chloride 108 mmol/L (98-107); Est Glom Filt Rate - Afr Amer 54 mL/min (>60); Phosphorus 3.6 mg/dL (2.5-4.9); Potassium 4.5 mmol/L (3.5-5.1); Sodium Level 142 mmol/L (136-145)
--- NOTE | 2018-04-15 11:32 | OP.PCM_ITS ---
Problem List (1) Superior mesenteric artery stenosis Status: Acute Report of Operation Date of Procedure: 04/15/18 Pre-Operative Diagnosis: Chronic mesenteric ischemia with SMA stent stenosis Post-Operative Diagnosis: The same Surgery/Procedure Performed:: 1. Ultrasound-guided access retrograde right common femoral artery. 2. Aortogram with selective superior mesenteric artery and heel. 3. Balloon angioplasty of the proximal SMA stent with a 6 x 2 balloon. 4. Closure with Star close. Type of Anesthesia:: Sedation,Conscious Description of Procedure: Patient brought to the [employer]. Underwent the appropriate timeout consent. Underwent sedation. Prepped and draped in a sterile fashion. We did ultrasound-guided access retrograde in the right common femoral artery. Put a 6 Mohawk sheath and gave 3000 units of heparin. We then went to the lateral imaging and brought a KMP over the Glidewire. We selected this into the SMA stent it appeared to have a stent fracture. We imaged from here showing distal part of the stent all the way down was widely patent. Difficult to see proximal was a kink the catheter out. We re-got the wire and we brought in a [facility] guiding catheter. We then did a selective SMA angiogram and it looks like some narrowing at this proximal segment. We then removed that and brought in a 6 x 2 balloon that we ballooned the proximal into the aorta for over 30 seconds. We re-brought the guiding catheter in and it appeared to have some improved flow through here. We then removed out the guiding catheter and sheath and then brought in the Star close and deployed with good hemostasis. Sedation: This 77-year-old gentleman underwent moderate sedation given by Dr. Singh Khanna. He was monitored for over 30 minutes of the procedure and was given fentanyl and Versed. He was monitored with EKG blood pressure and pulse ox. He tolerated the procedure well was brought to recovery in stable condition
== END 2018-04-15 15:30 | disposition home or self-care (01) ==
LOC: CLSP 09:02
PROVIDERS: Family Provider Family Medicine; PCP Family Medicine; Referring Provider Surgery Vascular Surgery; Visit Provider Surgery Vascular Surgery
DX: T82.858A Stenosis of other vascular prosthetic devices, implants and grafts, initial encounter (principal); K55.1 Chronic vascular disorders of intestine; D64.9 Anemia, unspecified; I65.23 Occlusion and stenosis of bilateral carotid arteries; I11.9 Hypertensive heart disease without heart failure; E78.00 Pure hypercholesterolemia, unspecified; K51.90 Ulcerative colitis, unspecified, without complications; Z87.19 Personal history of other diseases of the digestive system; Z95.1 Presence of aortocoronary bypass graft; Z79.82 Long term (current) use of aspirin; Z79.02 Long term (current) use of antithrombotics/antiplatelets; Z79.899 Other long term (current) drug therapy; Z87.891 Personal history of nicotine dependence
CPT/HCPCS: 36245; 36415; 36416; 37246; 75726; 76937; 80069; 85027; 85610; 99152; 99153; J7040; Q9967; C1725; C1760; C1769; C1887

== ENCOUNTER 2018-05-06 11:10 | Outpatient (RCR) | payer MEDICARE, OTHER, SELFPAY ==
[2018-04-30 16:54] VITALS: BP 140/64; BMI 25.8
[2018-05-06 14:29] LABS: Absolute Lymphocyte Count 0.68 X10^3/ul (0.83-4.51); Absolute Neutrophil Count 2.6 X10^3/uL (2.0-7.7); Eosinophil# 0.06 X10^3/uL; Eosinophils% 1.6 % (0-5); Hematocrit 35.6 % (40-54); Hemoglobin 11.7 g/dl (13.0-16.5); Lymphocyte # 0.68 X10^3/ul (4.0); Lymphocyte % 17.8 % (19-41); Mean Corp Hgb Conc 32.9 g/gl (32-36); Mean Corpuscular Hgb 35.5 pg (27.0-32.0); Mean Corpuscular Volume 107.9 fL (80-94); Mean Platelet Vol. 10.5 fl (6.2-12.0); Monocyte# 0.46 X10^3/uL; Neutrophil # 2.62 X10^3/uL (2.7-7.7); Neutrophil % 68.6 % (47-70); Platelet Count 113 K/mm3 (150-450); RBC Distribution Width CV 13.5 % (11.6-14.6); RBC Distribution Width SD 53.1 fl (35.1-43.9); White Blood Count 3.8 K/mm3 (4.4-11.0)
[2018-05-06 14:34] LABS: POSITIVE COUNT NO; POSITIVE DIFFERENTIAL NO; POSITIVE MORPHOLOGY NO
== END 2018-05-06 12:00 | disposition home or self-care (01) ==
LOC: MTLAB 11:10
PROVIDERS: Family Provider Family Medicine; PCP Family Medicine; Referring Provider Internal Medicine Cardiovascular Disease; Visit Provider Internal Medicine Cardiovascular Disease
DX: K51.90 Ulcerative colitis, unspecified, without complications (principal)
CPT/HCPCS: 36415; 85025

== ENCOUNTER 2018-06-01 11:46 | Outpatient (RCR) | payer MEDICARE, OTHER, SELFPAY ==
[2018-04-30 16:54] VITALS: BMI 25.8
[2018-06-02 11:20] LABS: Prothrombin Time Fingerstick 30.6 SEC (11.9-14.4)
== END 2018-06-01 12:00 | disposition home or self-care (01) ==
LOC: MTLAB 11:46
PROVIDERS: Family Provider Family Medicine; PCP Family Medicine; Referring Provider Internal Medicine Cardiovascular Disease; Visit Provider Internal Medicine Cardiovascular Disease
DX: I48.91 Unspecified atrial fibrillation (principal); I48.92 Unspecified atrial flutter; Z79.01 Long term (current) use 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
CPT/HCPCS: 36416; 85610

== ENCOUNTER → 2018-06-10 13:08 | Outpatient (CLI) | payer MEDICARE, OTHER, SELFPAY ==
[2018-04-30 16:54] VITALS: BMI 25.8
--- OUTSIDE RECORDS SUMMARY | 2018-07-27 16:59 | XMS RPT_ITS ---
:1940 Author Organization OHIP Support Name Relationship Address Phone KARLA NOGUERALY I Unavailable [address] + [place] [address] R Unavailable Unavailable Unavailable CHUCKIE, JULIA I Unavailable [address] + [place] [address] R Unavailable Unavailable Unavailable CHUCKIE, JULIA I Unavailable [address] + [place] [address] R Unavailable Unavailable Unavailable CHUCKIE, JULIA I Unavailable [address] + [place] [address] R Unavailable Unavailable Unavailable CHUCKIE, JULIA I Unavailable [address] + [place] [address] R Unavailable Unavailable Unavailable CHUCKIE, JULIA I Unavailable [address] + [place] [address] R Unavailable Unavailable Unavailable CHUCKIE, JULIA I Unavailable [address] + [place] [address] R Unavailable Unavailable Unavailable CHUCKIE, JULIA I Unavailable [address] + [place] [address] R Unavailable Unavailable Unavailable CHUCKIE, JULIA I Unavailable [address] + [place] [address] R Unavailable Unavailable Unavailable CHUCKIE, JULIA I Unavailable [address] + [place] [address] R Unavailable Unavailable Unavailable CHUCKIE, JULIA I Unavailable [address] + [place] [address] R Unavailable Unavailable Unavailable CHUCKIE, JULIA I Unavailable [address] + [place] [address] R Unavailable Unavailable Unavailable CHUCKIE, JULIA I Unavailable [address] + [place] [address] R Unavailable Unavailable Unavailable CHUCKIE, JULIA I Unavailable [address] + [place] [address] R Unavailable Unavailable Unavailable CHUCKIE, JULIA I Unavailable [address] + [place] [address] R Unavailable Unavailable Unavailable CHUCKIE, JULIA I Unavailable [address] + [place] [address] R Unavailable Unavailable Unavailable CHUCKIE, JULIA I Unavailable [address] + [place] [address] R Unavailable Unavailable Unavailable CHUCKIE, JULIA I Unavailable [address] + [place] [address] R Unavailable Unavailable Unavailable CHUCKIE, JULIA I Unavailable [address] + [place] [address] R Unavailable Unavailable Unavailable CHUCKIE, JULIA I Unavailable [address] + [place] [address] R Unavailable Unavailable Unavailable CHUCKIE, JULIA I Unavailable [address] + [place] [address] R Unavailable Unavailable Unavailable CHUCKIE, JULIA I Unavailable [address] + [place] [address] R Unavailable Unavailable Unavailable CHUCKIE, JULIA I Unavailable [address] + [place] [address] R Unavailable Unavailable Unavailable CHUCKIE, JULIA Unavailable [address] + [place] [address] R Unavailable Unavailable Unavailable CHUCKIE, JULIA Unavailable [address] + [place] [address] R Unavailable Unavailable Unavailable Care Team Providers Name Role Phone Amaury Matthews Attending Unavailable Amaury Matthews Referring Unavailable Rosa Maria Santacruz Primary Care Unavailable Amaury Matthews Attending Unavailable Amaury Matthews Referring Unavailable Rosa Maria Santacruz Primary Care Unavailable Brooks Borges Attending Unavailable Rosa Maria Santacruz Primary Care Unavailable Brooks Borges Referring Unavailable Brooks Borges Attending Unavailable Brooks Borges Referring Unavailable Rosa Maria Santacruz Primary Care Unavailable Teresa Rodríguez Attending Unavailable Brooks Borges Attending Unavailable MoodispawBrooks Referring Unavailable Jolliff, Rosa Maria Primary Care Unavailable Moodispajason, Brooks Attending Unavailable MoodispawBrooks Referring Unavailable Jolliff, Rosa Maria Primary Care Unavailable Moodispaw, Brooks Attending Unavailable Jolliff, Rosa Maria Referring Unavailable Jolliff, Rosa Maria Primary Care Unavailable KhannaSingh fagan Attending Unavailable Singh Khanna Referring Unavailable Jolliff, Rosa Maria Primary Care Unavailable Moodispaw, Brokos Attending Unavailable Moodispaw, Brooks Referring Unavailable Jolliff, Rosa Maria Primary Care Unavailable Moodispaw, Brooks Attending Unavailable Moodispaw, Brooks Referring Unavailable Jolliff, Rosa Maria Primary Care Unavailable Moodispajason, Brooks Attending Unavailable MoodispaBrooks gomez Referring Unavailable Jolliff, Rosa Maria Primary Care Unavailable Moodispajason, Brooks Attending Unavailable MoodispaBrooks gomez Referring Unavailable Jolliff, Rosa Maria Primary Care Unavailable Jabour, Vincent Consulting Unavailable Jabour, Amaury Attending Unavailable Jolliff, Rosa Maria Primary Care Unavailable Moodissidra, Brooks Attending Unavailable MoodispaBrooks gomez Referring Unavailable Jolliff, Rosa Maria Primary Care Unavailable Jabour, Vincalma Consulting Unavailable Moodispajason, Brooks Attending Unavailable MoodispaBrooks gomez Referring Unavailable Jolliff, Rosa Maria Primary Care Unavailable Jabour, Amaury Consulting Unavailable Moodissidra, Brooks Attending Unavailable MoodispaBrooks gomez Referring Unavailable Jolliff, Rosa Maria Primary Care Unavailable Jabour, Vincent Consulting Unavailable Jabour, Amaury Attending Unavailable Jabour, Vincalma Referring Unavailable Jolliff, Rosa Maria Primary Care Unavailable MoodisBrooks valente Consulting Unavailable Singh Khanna Attending Unavailable Singh Khanna Referring Unavailable Jolliff, Rosa Maria Primary Care Unavailable Moodispaw, Brooks Attending Unavailable Moodispaw, Brooks Referring Unavailable Jolliff, Rosa Maria Primary Care Unavailable Jabour, Amaury Consulting Unavailable Moodispajason, Brooks Attending Unavailable MoodispaBrooks gomez Referring Unavailable Jolliff, Orsa Maria Primary Care Unavailable Jabour, Amaury Consulting Unavailable Moodispajason, Brooks Attending Unavailable Jolliff, Rosa Maria Referring Unavailable KhannaSingh Attending Unavailable Jolliff, Rosa Maria Primary Care Unavailable Singh Khanna Referring Unavailable Moodispajason, Brooks Attending Unavailable Moodispajason, Brooks Referring Unavailable Jolliff, Rosa Maria Primary Care Unavailable Jabour, Amaury Consulting Unavailable Moodispajaosn, Brooks Attending Unavailable MoodispaBrooks gomez Referring Unavailable Jolliff, Rosa Maria Primary Care Unavailable PROBLEMS PROBLEMS DATE TYPE CONDITION / CODE ATTENDING STATUS SOURCE 06/29/2018 Unknown I48.91 - Unspecified MoodisBrooks valente Active [place] atrial fibrillation / Community I48.91(ICD-10) Hospital Repository 06/29/2018 Unknown I48.92 - Unspecified MoodisBrooks valente Active [place] atrial flutter / Community I48.92(ICD-10) Hospital Repository 06/29/2018 Unknown Z79.01 - prison MoodisBrooks valente Active [place] (current) use of Community 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 / Hospital Z79.01(ICD-10) Repository 06/02/2018 Unknown 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, unspecified, Community without complications Hospital / K51.90(ICD-10) Repository 03/24/2018 Unknown I11.9 - Hypertensive Singh Khanna A Active [place] heart disease without Community heart failure / Hospital I11.9(ICD-10) Repository 08/21/2017 Unknown I10 - Essential Singh Khanna A Active [facility] (primary) Community hypertension / Hospital I10(ICD-10) Repository 08/21/2017 Unknown 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 Replaced By [facility] bilateral carotid Hospital arteries / Repository I65.23(ICD-10) 08/21/2017 Unknown I77.1 - Stricture of Singh Khanna A Active [place] artery / Community I77.1(ICD-10) Hospital Repository 08/21/2017 Unknown E78.00 - Pure Singh Khanna A Active [facility] hypercholesterolemia, Community unspecified / Hospital E78.00(ICD-10) Repository 08/21/2017 Unknown I51.9 - Heart Singh Khanna A Active [place] disease, unspecified Community / I51.9(ICD-10) Hospital Repository 08/21/2017 Unknown D64.9 - Anemia, Signh Khanna A Active [place] unspecified / Community D64.9(ICD-10) Hospital Repository 07/31/2017 Unknown I25.10 - NinoisBrooks valente Active [place] Atherosclerotic heart Community disease of [place] Hospital coronary artery Repository without angina pectoris / I25.10(ICD-10) 07/31/2017 Unknown Z95.5 - Presence of Brooks Borges Active [place] coronary angioplasty Community implant and graft / Hospital Z95.5(ICD-10) Repository 07/31/2017 Unknown Z95.1 - Presence of Brooks Borges Active [place] aortocoronary bypass Community graft / Z95.1(ICD-10) Hospital Repository 07/31/2017 Unknown E78.5 - Brooks Borges Active [place] Hyperlipidemia, Community unspecified / Hospital E78.5(ICD-10) Repository PROCEDURES PROCEDURES No Procedure Records FoundRESULTS RESULTS PROTIME W/INR Collected: 07/06/2018 Status: F Source: [place] 11:23 AM [facility] [place] REPOSITORY TYPE CODE TESTS RESULT OUT OF REFERENCE UNITS RANGE LAB L9200.1001 11.9-14.4 SEC High PROTIME ISTAT 28.7 Result Comment: Reference Range 11.9 - 14.4 LAB L9200.2000 Normal INR ISTAT 2.50 Result Comment: Critical Value > 3.5 Performed By: #### L9200.0000 #### [facility] Point [place] [address] COLON BIOPSY (CHOOSE Observed: 06/16/2018 Status: F Source: [place] SITE) 8:00 AM [facility] [place] REPOSITORY Patient: AMAURY NOGUERA : 1940 (77/M) Acct Num: [id number] Phys: Amaury Matthews Unit Num: [id number] Loc: LABSPEC Specimen: [id number] Received: 06/16/18 - 0 Spec Type: COLON BX TISSUES 1 TISSUES: A. Right colon B. Left colon GROSS DESCRIPTION A - Received in fixative is one container labeled with the patient's name and designated right colon biopsy. The specimen consists of multiple irregular fragments of light iverson soft tissue that in aggregate measure 1 x 0.6 x 0.1 cm. The specimen is totally submitted in one cassette. B - Received in fixative is one container labeled with the patient's name and designated left colon biopsy. The specimen consists of multiple irregular fragments of light iverson soft tissue that in aggregate measure 1.2 x 0.5 x 0.1 cm. The specimen is totally submitted in one cassette. / AM:rg 06/17/18 TC:5 CPT: 69364 x2 HEADER OPERATION: Colonoscopy with biopsy PRE-OP DIAGNOSIS: History ulcerative colitis TISSUE SUBMITTED: A - Biopsy right colon, rule out ulcerative colitis/ dysplasia, B - Biopsy left colon, rule out ulcerative colitis/dysplasia MICROSCOPIC DESCRIPTION Slides are reviewed. MICROSCOPIC DIAGNOSIS A. Right colon, biopsy: Mild architectural change. No evidence of active colitis. B. Left colon, biopsy: Mild architectural change. No evidence of active colitis. AM:janusz 06/18/18 Signed Zach Jair, DO 06/18/18 <signature on file> Performed By: #### PCOLBX #### [facility] [address] [place], [place], [address] MISCELLANEOUS LAB Collected: 06/10/2018 Status: F Source: [place] PROCEDURE 1:19 PM [facility] [place] REPOSITORY Order Comment: Comments: PROMETHEUS Test(s) Ordered: PROMETHEUS TYPE CODE TESTS RESULT OUT OF RANGE REFERENCE UNITS LAB L801.1541 Normal [facility] TEST Result Comment: Scanned image report available in EMR Performed By: #### L801.1541 #### [facility] [address] [place], [place], [address] PROTIME W/INR Collected: 06/01/2018 Status: F Source: [place] 12:01 PM [facility] [place] REPOSITORY TYPE CODE TESTS RESULT OUT OF REFERENCE UNITS RANGE LAB L9200.1001 11.9-14.4 SEC High PROTIME ISTAT 30.6 Result Comment: Reference Range 11.9 - 14.4 LAB L9200.2000 Normal INR ISTAT 2.70 Result Comment: Critical Value > 3.5 Performed By: #### L9200.0000 #### [facility] Point of Care [address] [place], [place] [address] CBC W/DIFF, AUTOMATED Collected: 05/06/2018 Status: F Source: [place] 11:29 AM [facility] [place] REPOSITORY TYPE CODE TESTS RESULT OUT OF RANGE REFERENCE UNITS LAB L100.1000 4.4-11.0 K/mm3 Low WBC 3.8 LAB L100.1200 4.6-6.2 M/mm3 Low RBC 3.30 LAB L100.1300 13.0-16.5 g/dl Low HGB 11.7 LAB L100.1400 40-54 % Low HCT 35.6 LAB L100.1500 80-94 fL High MCV 107.9 LAB L100.1600 27.0-32.0 pg High MCH 35.5 LAB L100.1700 32-36 g/gl Normal MCHC 32.9 LAB L100.1810 11.6-14.6 % Normal RDW CV 13.5 LAB L100.1820 35.1-43.9 fl High RDW SD 53.1 LAB L100.1900 150-450 K/mm3 Low PLT 113 LAB L100.2000 6.2-12.0 fl Normal MPV 10.5 LAB L100.2100 47-70 % Normal NEUT% 68.6 LAB L100.2200 19-41 % Low LY% 17.8 LAB L100.2300 0-10 % High MONO% 12.0 LAB L100.2400 0-5 % Normal EO% 1.6 LAB L100.2500 0-1 % Normal BASO% 0.0 LAB L100.2550 0.0-0.9 % Normal IM GRAN % 0.000 Result Comment: IG% - Immature Granulocytes (promyelocytes, myelocytes and metamyelocytes) > 1% indicates that a LEFT SHIFT is Present. LAB L100.2620 2.0-7.7 X10 3/uL Normal Absolute Neut 2.6 LAB L100.2720 0.83-4.51 X10 3/ul Low Absolute Lymph 0.68 Performed By: #### L100.0100 #### [facility] [address] [facility] [place], [address] OPERATIVE REPORT Observed: 04/15/2018 Status: F Source: [place] 11:32 AM [facility] [place] REPOSITORY [facility] Medical Records Department [address] [place] [address] Operative Report 04/15/18 1126 MR#: [id number] Acct: [id number] Name: AMAURY NOGUERA Rep #: [id number] : 1940 77 From: Singh Khanna MD PCP: Rosa Maria Santacruz MD Status: REG MIC Y Location: [facility] Problem List (1) Superior mesenteric artery stenosis Status: Acute Report of Operation Date of Procedure: 04/15/18 Pre-Operative Diagnosis: Chronic mesenteric ischemia with SMA stent stenosis Post-Operative Diagnosis: The same Surgery/Procedure Performed:: 1. Ultrasound-guided access retrograde right common femoral artery. 2. Aortogram with selective superior mesenteric artery and heel. 3. Balloon angioplasty of the proximal SMA stent with a 6 x 2 balloon. 4. Closure with Star close. Type of Anesthesia:: Sedation,Conscious Description of Procedure: Patient brought to the It Operations Specialist. Underwent the appropriate timeout consent. Underwent sedation. Prepped and draped in a sterile fashion. We did ultrasound-guided access retrograde in the right common femoral artery. Put a 6 [place] sheath and gave 3000 units of heparin. We then went to the lateral imaging and brought a KMP over the Glidewire. We selected this into the SMA stent it appeared to have a stent fracture. We imaged from here showing distal part of the stent all the way down was widely patent. Difficult to see proximal was a kink the catheter out. We re-got the wire and we brought in a [facility] guiding catheter. We then did a selective SMA angiogram and it looks like some narrowing at this proximal segment. We then removed that and brought in a 6 x 2 balloon that we ballooned the proximal into the aorta for over 30 seconds. We re-brought the guiding catheter in and it appeared to have some improved flow through here. We then removed out the guiding catheter and sheath and then brought in the Star close and deployed with good hemostasis. Sedation: This 77-year-old gentleman underwent moderate sedation given by Dr. Singh Khanna. He was monitored for over 30 minutes of the procedure and was given fentanyl and Versed. He was monitored with EKG blood pressure and pulse ox. He tolerated the procedure well was brought to recovery in stable condition 04/15/18 1132 <Electronically signed by Singh Khanna MD> Date Singh Khanna MD CC: Rosa Maria Santacruz MD; Singh Khanna MD Signed PROTIME W/INR Collected: 04/15/2018 Status: F Source: [place] 9:35 AM [facility] [place] REPOSITORY TYPE CODE TESTS RESULT OUT OF RANGE REFERENCE UNITS LAB L9200.1001 11.9-14.4 SEC Normal PROTIME ISTAT 12.0 Result Comment: Reference Range 11.9 - 14.4 LAB L9200.2000 Normal INR ISTAT 1.00 Result Comment: Critical Value > 3.5 Performed By: #### L9200.0000 #### [facility] Point of Care [address] [place], [place] [id number] CBC-COMPLETE BLOOD CNT Collected: 04/15/2018 Status: F Source: [place] NO DIFF 9:07 AM [facility] [place] REPOSITORY TYPE CODE TESTS RESULT OUT OF RANGE REFERENCE UNITS LAB L100.1000 4.4-11.0 K/mm3 Low WBC 3.5 LAB L100.1200 4.6-6.2 M/mm3 Low RBC 3.43 LAB L100.1300 13.0-16.5 g/dl Low HGB 12.6 LAB L100.1400 40-54 % Low HCT 37.5 LAB L100.1500 80-94 fL High MCV 109.3 LAB L100.1600 27.0-32.0 pg High MCH 36.7 LAB L100.1700 32-36 g/gl Normal MCHC 33.6 LAB L100.1810 11.6-14.6 % Normal RDW CV 13.0 LAB L100.1820 35.1-43.9 fl High RDW SD 50.9 LAB L100.1900 150-450 K/mm3 Low PLT 114 LAB L100.2000 6.2-12.0 fl Normal MPV 9.4 Performed By: #### L100.0500 #### [facility] [address] [place], [address] RENAL PROFILE Collected: 04/15/2018 Status: F Source: [place] 9:07 AM [facility] [place] REPOSITORY TYPE CODE TESTS RESULT OUT OF RANGE REFERENCE UNITS LAB L501.0100 74-106 mg/dL Normal GLU 86 Result Comment: Please note revised GLUCOSE reference range effective 2017. LAB L501.1000 7-18 mg/dL High BUN 24 LAB L501.1100 0.70-1.30 mg/dL High CREAT,SERUM 1.60 Result Comment: The validity of the calculated GFR AND GFRAA in patients over 70 years has not been determined. Clinical correlation is essential. LAB L501.1110 >60 mL/min Low EST GFR 45 Result Comment: Non- GFR Calc LAB L501.1115 >60 mL/min Low EST GFR - AA 54 Result Comment: GFR Calc LAB L501.1255 ml/min Normal Estimated CRCL 41.83 LAB L501.1300 10-20 RATIO Normal BUN/CRE 15.0 LAB L501.1800 3.2-5. g/dL Normal 0 ALB 4.0 LAB L501.2200 8.5-10 mg/dL Normal .1 CA 8.8 LAB L501.2300 2.5-4. mg/dL Normal 9 PHOS 3.6 LAB L501.5300 136-14 mmol/L Normal 5 NA 142 LAB L501.5600 3.5-5. mmol/L Normal 1 K 4.5 LAB L501.5900 98-107 mmol/L High CL 108 LAB L501.6100 21.0-3 mmol/L Normal 2.0 CO2 28.0 Performed By: #### L500.3600 #### [facility] [address] [place], [place] [address] [place], [place], [address] PROTIME W/INR Collected: 04/08/2018 Status: F Source: [place] 10:23 AM [facility] [place] REPOSITORY TYPE CODE TESTS RESULT OUT OF REFERENCE UNITS RANGE LAB L9200.1001 11.9-14.4 SEC High PROTIME ISTAT 33.6 Result Comment: Reference Range 11.9 - 14.4 LAB L9200.2000 Normal INR ISTAT 2.90 Result Comment: Critical Value > 3.5 Performed By: #### L9200.0000 #### [facility] Point of Care [address] [place], [place] [address] CARDIOLOGY VISIT Observed: 04/06/2018 Status: F Source: [place] REPORT 3:07 PM [facility] [place] REPOSITORY [facility] [address] [place] [address] OFFICE VISIT Date of Service: 04/06/18 MR#: [id number] Acct: [id number] Name: AMAURY NOGUERA Rep #: [id number] : 1940 Provider: Brooks Borges MD Age/Sex: 77/M Location: [facility] Status: Signed HPI HPI Details: AMAURY NOGUERA, is a 77 M who presents to the office today for outpatient cardiovascular follow-up. Overall from a cardiac standpoint he states he is doing well at this time. He denies any palpitations or rapid rates. He states he has not had his usual positional lightheadedness or dizziness and there is been no near syncope or syncope. There has been no issues with respect to symptoms suspicious for angina pectoris or episodes of CHF or pulmonary edema. He continues to have an element of lower extremity peripheral pitting edema. He is undergoing peripheral vascular evaluation by Dr. Khanna for concerns of his underlying peripheral arterial occlusive disease and evolving his abdominal vasculature. He states this is tentatively scheduled on 04/15/2018 to be performed at [facility] with peripheral angiography. 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 [Ecotrin] 81 mg PO DAILY@0800 08/29/16 [History Confirmed 04/06/18] Pantoprazole Sodium [Protonix] 40 mg PO DAILY 08/29/16 [History Confirmed 04/06/18] metoprolol tartrate 50 mg tablet 50 mg PO BID 07/30/17 [History Confirmed 04/06/18] nitroglycerin 0.4 mg sublingual tablet 0.4 mg SUBLINGUAL Q5M PRN 07/30/17 [History Confirmed 04/06/18] azathioprine 50 mg tablet 50 mg PO DAILY tab 07/31/17 [History Confirmed 04/06/18] balsalazide 750 mg capsule 2,250 mg PO BID cap 07/31/17 [History Confirmed 04/06/18] warfarin 5 mg tablet 5 mg PO .COMPLEX #60 tab 10/22/17 [Rx Confirmed 04/06/18] lisinopril 10 mg tablet 20 mg PO BID tab 04/06/18 [History Confirmed 04/06/18] PFSH Medical History Carotid artery stenosis (Acute) Hyperlipidemia (Acute) Atherosclerotic heart disease of [place] coronary artery without angina pectoris (Chronic) Premature atrial contractions (Acute) Atrial fibrillation and flutter (Acute) prison (current) use 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 (Acute) Right carotid bruit (Chronic) Hypertension (Chronic) Thrombocytopenia (Acute) Ulcerative colitis (Acute) Upper GI bleed (Acute) Hematemesis/vomiting blood (Inactive) History of coronary artery disease (Inactive) Hypercholesterolemia (Inactive) Thrombocytopenia (Inactive) Ulcerative colitis (Inactive) Upper GI bleed (Inactive) Surgical History Aortocoronary bypass status (Resolved 02/12/17) Status post insertion of drug-eluting stent into right coronary artery for coronary artery disease (Chronic 04/2009) History of hand surgery (Resolved) History of vasectomy (Resolved) Family History Father CAD (coronary artery disease) Social History Smoking Status: Former smoker alcohol intake: current substance use type: does not use ROS Const Const: Negative for fatigue, weakness, night sweats, excessive sweating, frequent falls, headache(s) or daytime sleepiness Eyes Eyes: Negative for loss of peripheral vision, transient loss of vision, blind spots, double vision or blurry vision ENT ENT: Negative for headache(s), dizziness, balance problems, Nosebleed/epistaxis, tongue swelling or lip swelling Cardio Chest Pain: No Palpitations: No Edema: None Muscle aches with walking: None Resp Respiratory: Negative for SOB at rest, SOB orthopnea\SOB lying down, Cough, paroxysmal nocturnal dyspnea or SOB with activity GI GI: Negative nausea, vomiting, heartburn, black,tarry stools or bright, red blood in stools : Negative for hematuria Musc Musc: Negative for balance problems, muscle aches/ myalgia, muscle weakness or joint pain Skin Skin: Negative non-healing lesions, unusual bruising or rash Neuro Neuro: Negative for weakness, frequent falls, headache(s), double vision, dizziness, lightheadedness, orthostatic symptoms, blurry vision or lack of coordination Tye Hematologic/Lymphatic: Negative for easy bruising or easy bleeding Endo Endo: Negative for fatigue, excessive sweating, cold intolerance, heat intolerance, increased thirst/drinking or hair loss Psych Psych: Negative for anxiety or depression Allergy Allergy/Immunology: Negative for throat swelling, Negative for tongue swelling, Negative for hives, Negative for rash, Negative for lip swelling Cardiology Exam Const Appearance: cooperative, healthy appearing, comfortable, no acute distress, well developed and well groomed Nutritional Appearance: average body habitus Orientation: alert, awake and oriented x3 Head Head: normal to inspection, normocephalic and atraumatic Ears: hearing grossly normal bilaterally Nose: external nose normal Face and Sinus: face symmetric Mouth: oral mucosae normal Eyes General: appearance normal, both eyes and all related structures Eyelids: eyelids normal Conjunctivae: conjunctivae normal Pupils: PERRL EOM: EOM intact bilaterally Neck Neck: normal visual inspection and full ROM carotid endarterectomy: Bilateral (Left > Right) Chest Chest inspection: normal inspection of the chest and symmetric chest movement Auscultation: Bilateral: Clear to Auscultation Cardio Palpation: normal PMI Rate: regular rate Rhythm: regular rhythm Heart sounds: S1 normal, S2 normal and positive S4 GI GI: normal to inspection, soft, no hepatosplenomegaly and bowel sounds present Neuro General: alert, awake and oriented x3 Skin Skin: no rashes or lesions noted Extremities Pulses: Normal: Right Radial Pulse, Left Radial Pulse Lower Extremity Edema: None: Bilateral Psych Psychological: normal affect Supplemental Info He did have a transthoracic echocardiogram on 01/09/2017 Interpretation Summary The study was technically difficult. Contrast injection was performed. Segmental dysfunction with preserved ejection fraction (see wall motion). The estimated ejection fraction is 65 %. The left atrium is moderately enlarged. The right atrium is mildly enlarged. There is mild to moderate mitral annular calcification. Extension of the mitral annular calcification onto the posterior mitral valve leaflet. Mild focal mitral valve calcification, bileaflet. Moderate (2+) eccentric mitral valve insufficiency. Mild to moderate (1-2+) tricuspid valve insufficiency. Trivial pulmonic valve insufficiency. Right ventricular systolic pressure estimated to be 46 mmHg c/w pulmonary hypertension. He had a ROSI performed at [facility] on 02/17/2017 Conclusions 1. Difficult intubation 2. No LA, GUERO or RA thrombus or spontaneous contrast. 3. Normal LV size and systolic function with an EF of 65% 4. Normal RV size and function. 5. There is moderate mitral annular calcification. There s moderate mitral regurgitation. 6. There is mild tricuspid regurgitation. 7. No right to left shunt 8. 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 He had a stress test performed at [facility] on 05/16/2017 The patient exercised on a William protocol for 6 minutes completing stage II achieving a peak heart rate of 104 bpm (71% predicted maximal heart rate) with a peak blood pressure 186/84 mmHg and a peak MET capacity of 7 Mets. The baseline ECG demonstrated normal sinus rhythm with poor R-wave progression and nonspecific ST and T-wave abnormality. The peak exercise ECG demonstrated somatic/motion artifact with continued nonspecific ST and T-wave abnormality. There was no cardiac dysrhythmias pretest, during exercise, or recovery. The functional capacity was considered average. There was no report of chest discomfort during exercise or recovery. The examination was discontinued secondary to dyspnea and leg discomfort. Impression: 1. Technically inadequate (percent predicted maximal heart rate less than 71%) exercise tolerance test 2. Peak exercise ECG was somatic/motion artifact with continued nonspecific ST and T-wave abnormality He had a cardiac catheterization performed at [facility] on 05/12/2009 FINAL IMPRESSION 1. Elevated left ventricular end-diastolic pressure compatible with decreased diastolic compliance. 2. Left ventricle. A. Normal left ventricle size, wall motion, and systolic function. B. Estimated left ventricle ejection fraction of 65%, C. Finding suggestive of concentric left ventricular hypertrophy. D. Finding suggest of a somewhat spade-shaped left ventricle 3. Left main: A. Mild calcifications. B. lo angiographically si.gnifcant appearing disease. 4. Left anterior descending: A. Proximal mild calcification. B. Ostial 50 to 75% concentric appearing Stenosis. C. The remainder of the vessel with minimal luminal irregularities. 5. Left circumflex coronary artery: Minimal luminal irregularities. 6. Right coronary artery: A. Large dominant vessel. B. Ostial/proximal significant calcification creating an eccentric- appearing lesion. C. Ostial 75% appearing stenosis. D. Proximal 25 to 50% appearing stenosis. E. Mid 25 to 50% eccentric appearing Stenosis. F. Distal 25% appearing stenosis. 7. Aortic root: Possible dilatation. He had a PCI performed at [facility] on 05/17/2009 At that time he had FELECIA of the LAD which showed no significant disease in the ostial LAD Successful rotational atherectomy to the ostial RCA Successful LINDY placement in the proximal and mid RCA He eventually underwent repeat evaluation at [facility] which led to open heart surgery on 03/10/2017 at which time he received a ZARAGOZA to the LAD and an SVG to the PDA He had a carotid artery duplex study performed on 11/01/2015 at [facility] Interpretation Summary Mild (<50%) stenosis right extracranial internal carotid. Moderate (50-69%) stenosis left extracranial internal carotid. Flow within the right vertebral artery is antegrade. Flow within the left vertebral artery is bidirectional, consistent with subclavian steal phenomenon. Assessment AND Plan 1. Atherosclerosis of [place] coronary artery of [place] heart without angina pectoris I25.10 CABG x2- ZARAGOZA to LAD, Aorto post descending coronary artery to revers SVG 02/12/17; atherectomy to ostial RCA, LINDY to Prox/Mid RCA 04/2009 Plan At the present time he appears to be without any acute symptoms. He is going to continue his current medical management. 2. Status post insertion of drug-eluting stent into right coronary artery for coronary artery disease Z95.5 atherectomy to ostial RCA, LINDY to Prox/Mid RCA 04/2009 Plan He does have a history of previous PCI. He has been treated medically. He is also undergone CABG. He appears to be doing well. He will continue his current medical therapy. 3. 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 Again he will continue medical management and follow-up. 4. Bilateral carotid artery stenosis I65.23 Plan He does have carotid artery disease. He does follow with Dr. Khanna of peripheral vascular surgery. 5. Atrial fibrillation and flutter I48.91; I48.92 Plan He appears to be remaining in a regular rhythm at this time. Based on his history of atrial dysrhythmias he will continue medical management which has included his rate control therapy and his anticoagulant therapy. 6. Hyperlipidemia, unspecified hyperlipidemia type E78.5 Plan His lipid labs have been reviewed from November of this year. Overall his total cholesterol was reported at 186 with an LDL of 98 and an HDL of 69 and a triglyceride level of 97. He will continue medical management and follow-up. 7. Essential hypertension I10 Plan His systolic blood pressure is mildly elevated today. He was asked to monitor it at home. If his trends demonstrate elevation of his systolic blood pressure than he may need alteration in his antihypertensive therapy. 8. prison current use of anticoagulant Z79.01 Plan He will continue medical management with respect to his 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. These are going to be temporarily interrupted for his upcoming peripheral vascular surgery procedure. Plan Detail Additional Comments He will continue evaluation care per Dr. Khanna for his abdominal peripheral vasculature concerns. Otherwise he will be scheduled for future outpatient cardiovascular visit. Thank you for allowing me to participate in the care of your patient. Please don't hesitate to call if any issues arise. This note was generated using a voice recognition system and there may be incorrect words, spelling or punctuation that were not noted when reviewing the office note prior to saving. Follow Up 6 Months (PFM) Coding Level of Care Code Off vis,est,level 3 Diagnoses Atherosclerosis of [place] coronary artery of [place] heart without angina pectoris I25.10 [place] vs. 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 hypertension prison current use of anticoagulant Z79.01 Coding Level of Care Code Off vis,est,level 3 Diagnoses Atherosclerosis of [place] coronary artery of [place] heart without angina pectoris I25.10 [place] vs. 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 Z79.01 04/06/18 1507 <Electronically signed by Brooks Borges MD> Date Brooks Borges MD Cosigner Signature: Date (if applicable) CC: Rosa Maria Santacruz MD PROTIME W/INR Collected: 03/24/2018 Status: F Source: [place] FINGERSTICK 10:29 AM [facility] REPOSITORY TYPE CODE TESTS RESULT OUT OF REFERENCE UNITS RANGE LAB L9200.1001 11.9-14.4 SEC High PROTIME ISTAT 40.4 Result Comment: Reference Range 11.9 - 14.4 LAB L9200.2000 High alert INR ISTAT 3.60 Result Comment: Critical Value > 3.5 Performed By: #### L9200.0000 #### [facility] Point of Care [address] [place], [place] [address] PROTHROMBIN TIME W/INR Collected: 03/24/2018 Status: F Source: [place] 10:23 AM [facility] REPOSITORY Order Comment: Result obtained is for confirmation testing of Fingerstick PT/INR Specimen # [id number] . 03/24/18 1043 VSICK THIS CONFIRMATION SPECIMEN RESULT IS FROM VENOUS BLOOD. TYPE CODE TESTS RESULT OUT OF RANGE REFERENCE UNITS LAB L300.4150 11.7-14.9 SECONDS High PROTIME 33.8 LAB L300.4200 Normal INR 3.3 Performed By: #### L300.3900 #### [facility] [address] [facility] [facility], [address] ABD AORTIC/IVC DUPLEX Observed: 03/04/2018 Status: F Source: [place] SCAN 8:01 AM [facility] REPOSITORY [facility] Cardiovascular Services [address] [place] [address] Abd Aortic/IVC Duplex scan 02/27/18802 MR#: [id number] Acct: [id number] Name: AMAURY NOGUERA Rep #: [id number] : 1940 77 From: Singh Khanna MD Attending Dr: Singh Khanna MD Status: REG CLI Ordering Dr: Singh Khanna MD Date: 02/27/18 Location: [facility] Sex: M C Admitted: Reason For Study: Mesenteric stenosis Aorta Measurements Prox Aorta - 79.3 cm/s Mid Aorta -139.0 cm/s Dist Aorta - 103.0 cm/s Prox SMA - 438.0 cm/s Mid SMA - 252.0 cm/s Dist SMA - 151.0 cm/s Celiac artery - 409.0 cm/s Hepatic artery - 260.0 cm/s Splenic artery - 180.0 cm/s. Procedure Aorta IVC Iliac vasculature or bypass grafts 56832. Exam performed in department. Interpretation Summary 1. 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 2. SMA with over 60% stenosis. Ordering Physician: Singh Khanna Referring Physician: Singh Khanna Performed By: Jayne Dugan RVT 03/04/18799 Date Singh Khanna MD CC: Rosa Maria Santacruz MD; Singh Khanna MD Date Dictated: 02/27/18802 Date Transcribed: 03/04/18 08 Forest Resource Specialist: Signed PROTIME W/INR Collected: 02/25/2018 Status: F Source: [place] 11:06 AM [facility] REPOSITORY TYPE CODE TESTS RESULT OUT OF REFERENCE UNITS RANGE LAB L9200.1001 11.9-14.4 SEC High PROTIME ISTAT 31.9 Result Comment: Reference Range 11.9 - 14.4 LAB L9200.2000 Normal INR ISTAT 2.80 Result Comment: Critical Value > 3.5 Performed By: #### L9200.0000 #### [facility] Point of Care [address] [place], [place] [address] PROTHROMBIN TIME W/INR Collected: 01/23/2018 Status: F Source: [place] 9:55 AM [facility] REPOSITORY TYPE CODE TESTS RESULT OUT OF RANGE REFERENCE UNITS LAB L300.4150 11.7-14.9 SECONDS High PROTIME 30.2 LAB L300.4200 Normal INR 2.9 Performed By: #### L300.3900 #### [facility] [address] [place], [place], [address] CBC W/DIFF, AUTOMATED Collected: 01/23/2018 Status: F Source: [place] 9:55 AM [facility] REPOSITORY TYPE CODE TESTS RESULT OUT OF RANGE REFERENCE UNITS LAB L100.1000 4.4-11.0 K/mm3 Low WBC 4.3 LAB L100.1200 4.6-6.2 M/mm3 Low RBC 3.35 LAB L100.1300 13.0-16.5 g/dl Low HGB 11.8 LAB L100.1400 40-54 % Low HCT 36.4 LAB L100.1500 80-94 fL High MCV 108.7 LAB L100.1600 27.0-32.0 pg High MCH 35.2 LAB L100.1700 32-36 g/gl Normal MCHC 32.4 LAB L100.1810 11.6-14.6 % Normal RDW CV 14.1 LAB L100.1820 35.1-43.9 fl High RDW SD 56.2 LAB L100.1900 150-450 K/mm3 Low PLT 124 LAB L100.2000 6.2-12.0 fl Normal MPV 10.2 LAB L100.2100 47-70 % High NEUT% 70.3 LAB L100.2200 19-41 % Low LY% 16.1 LAB L100.2300 0-10 % High MONO% 11.0 LAB L100.2400 0-5 % Normal EO% 2.1 LAB L100.2500 0-1 % Normal BASO% 0.5 LAB L100.2550 0.0-0.9 % Normal IM GRAN % 0.000 Result Comment: IG% - Immature Granulocytes (promyelocytes, myelocytes and metamyelocytes) > 1% indicates that a LEFT SHIFT is Present. LAB L100.2620 2.0-7.7 X10 3/uL Normal Absolute Neut 3.0 LAB L100.2720 0.83-4.51 X10 3/ul Low Absolute Lymph 0.69 Performed By: #### L100.0100 #### [facility] [address] [place], [address] PROTIME W/INR Collected: 12/18/2017 Status: F Source: [place] FINGERSTICK 3:17 PM [facility] REPOSITORY TYPE CODE TESTS RESULT OUT OF REFERENCE UNITS RANGE LAB L9200.1001 11.9-14.4 SEC High PROTIME ISTAT 24.5 Result Comment: Reference Range 11.9 - 14.4 LAB L9200.2000 Normal INR ISTAT 2.10 Result Comment: Critical Value > 3.5 Performed By: #### L9200.0000 #### [facility] Point of Care [address] [place] [address] DOWNTIME REPORT Observed: 12/18/2017 Status: F Source: [place] 12:27 PM [facility] REPOSITORY [facility] Medical Records Department [address] [place] [address] Downtime Report MR#: [id number] Acct: [id number] Name: AMAURY NOGUERA Rep #: [id number] : 1940 77 From: Obed Cooper PCP: Rosa Maria Santacruz MD Status: REG RCR This patient was seen during an EMR downtime December 01, 2017 - December 08, 2017. This patient may have a combination of paper and electronic documentation or all paper documentation. All documentation is viewable within the e-chart portion of [employer] for each patient visit. LIVER PROFILE Collected: 12/08/2017 Status: F Source: [place] 8:38 AM [facility] REPOSITORY Order Comment: Order Date: 05/15/17 Order Info: [id number] - *Hepatic Function Panel Order Info: [id number] - *Lipid Profile CC PCP Comments: 12 hours fasting, may have water. TYPE CODE TESTS RESULT OUT OF RANGE REFERENCE UNITS LAB L501.1500 6.4-8.2 g/dL Normal T PROT 6.9 LAB L501.1800 3.2-5.0 g/dL Normal ALB 3.9 LAB L501.1950 2.2-4.2 g/dL Normal GLOB 3.0 LAB L501.4100 15-37 U/L Normal AST 28 LAB L501.4305 45-117 U/L Normal ALK P 113 LAB L501.4405 16-61 U/L Normal ALT 21 LAB L501.4600 0.20-1.00 mg/dL Normal T BILI 0.50 LAB L501.4700 0.00-0.30 mg/dL Normal D BILI 0.14 Performed By: #### L500.3400 #### [facility] [place], [address] LIPID PROFILE Collected: 12/08/2017 Status: F Source: [place] 8:38 AM [facility] REPOSITORY Order Comment: Order Date: 05/15/17 Order Info: [id number] - *Hepatic Function Panel Order Info: [id number] - *Lipid Profile CC PCP Comments: 12 hours fasting, may have water. TYPE CODE TESTS RESULT OUT OF RANGE REFERENCE UNITS LAB L501.4900 200 mg/dL Normal CHOL 186 Result Comment: <200 mg/dL Desirable 200-240 mg/dL Borderline >240 mg/dL High Risk LAB L501.5000 mg/dL Normal TRIG 97 Result Comment: The drugs N-Acetylcysteine and Metamizole may falsely depress this assay. Serum Triglycerides Reference Interval Normal <150 mg/dL Borderline high 150 - 199 mg/dL High 200 - 499 mg/dL Very High > or = 500 mg/dL LAB L501.6400 mg/dL Normal HDL 69 Result Comment: The drugs N-Acetylcysteine and Metamizole may falsely depress this assay. Reference Range HDL <40 mg/dL Low HDL Cholesterol HDL >or= 60 mg/dL High HDL Cholesterol LAB L501.6500 0-130 mg/dL Normal LDL 98 LAB L501.6600 5-40 mg/dL Normal VLDL 19 Performed By: #### L500.4100 #### [facility] [address] [facility] [place], [address] PROTHROMBIN TIME W/INR Collected: 12/08/2017 Status: F Source: [place] 8:38 AM [facility] REPOSITORY TYPE CODE TESTS RESULT OUT OF REFERENCE UNITS RANGE LAB L300.4150 11.7-14.9 SECONDS High PROTIME 40.5 LAB L300.4200 High alert INR 4.2 Result Comment: CRITICAL VALUE VERIFIED. CALLED TO PHYLLIS VIRGEN 12/08/17 1044 Cam Landaverde. RESULTS READ BACK BY SAME. Performed By: #### L300.3900 #### [facility] [place], [address] PROTIME W/INR Collected: 11/14/2017 Status: F Source: [place] 10:30 AM [facility] REPOSITORY TYPE CODE TESTS RESULT OUT OF REFERENCE UNITS RANGE LAB L9200.1001 11.9-14.4 SEC High PROTIME ISTAT 26.5 Result Comment: Reference Range 11.9 - 14.4 LAB L9200.2000 Normal INR ISTAT 2.30 Result Comment: Critical Value > 3.5 Performed By: #### L9200.0000 #### [facility] Point of Care [address] [facility] [place] [address] CBC W/DIFF, AUTOMATED Collected: 10/22/2017 Status: F Source: [place] 2:17 PM [facility] REPOSITORY TYPE CODE TESTS RESULT OUT OF RANGE REFERENCE UNITS LAB L100.1000 4.4-11.0 K/mm3 Low WBC 4.3 LAB L100.1200 4.6-6.2 M/mm3 Low RBC 3.35 LAB L100.1300 13.0-16.5 g/dl Low HGB 12.1 LAB L100.1400 40-54 % Low HCT 36.5 LAB L100.1500 80-94 fL High MCV 109.0 LAB L100.1600 27.0-32.0 pg High MCH 36.1 LAB L100.1700 32-36 g/gl Normal MCHC 33.2 LAB L100.1810 11.6-14.6 % Normal RDW CV 12.8 LAB L100.1820 35.1-43.9 fl High RDW SD 50.0 LAB L100.1900 150-450 K/mm3 Low PLT 144 LAB L100.2000 6.2-12.0 fl Normal MPV 10.3 LAB L100.2100 47-70 % Normal NEUT% 69.6 LAB L100.2200 19-41 % Low LY% 16.4 LAB L100.2300 0-10 % High MONO% 12.4 LAB L100.2400 0-5 % Normal EO% 1.2 LAB L100.2500 0-1 % Normal BASO% 0.2 LAB L100.2550 0.0-0.9 % Normal IM GRAN % 0.200 Result Comment: IG% - Immature Granulocytes (promyelocytes, myelocytes and metamyelocytes) > 1% indicates that a LEFT SHIFT is Present. LAB L100.2620 2.0-7.7 X10 3/uL Normal Absolute Neut 3.0 LAB L100.2720 0.83-4.51 X10 3/ul Low Absolute Lymph 0.70 Performed By: #### L100.0100 #### [facility] [address] [place], [place], [address] PROTHROMBIN TIME W/INR Collected: 10/22/2017 Status: F Source: [place] 2:17 PM [facility] REPOSITORY TYPE CODE TESTS RESULT OUT OF RANGE REFERENCE UNITS LAB L300.4150 11.7-14.9 SECONDS High PROTIME 21.0 LAB L300.4200 Normal INR 1.8 Performed By: #### L300.3900 #### [facility] [address] [place], [address] PROTIME W/INR Collected: 10/07/2017 Status: F Source: [place] 2:13 PM [facility] REPOSITORY TYPE CODE TESTS RESULT OUT OF REFERENCE UNITS RANGE LAB L9200.1001 11.9-14.4 SEC High PROTIME ISTAT 17.3 Result Comment: Reference Range 11.9 - 14.4 LAB L9200.2000 Normal INR ISTAT 1.50 Result Comment: Critical Value > 3.5 Performed By: #### L9200.0000 #### [facility] Point of Care [address] [place] [address] PROTIME W/INR Collected: 09/15/2017 Status: F Source: [place] 1:18 PM [facility] REPOSITORY TYPE CODE TESTS RESULT OUT OF REFERENCE UNITS RANGE LAB L9200.1001 11.9-14.4 SEC High PROTIME ISTAT 21.7 Result Comment: Reference Range 11.9 - 14.4 LAB L9200.2000 Normal INR ISTAT 1.90 Result Comment: Critical Value > 3.5 Performed By: #### L9200.0000 #### [facility] Point of Care [address] [place] [address] PROTIME W/INR Collected: 08/29/2017 Status: F Source: [place] 1:24 PM [facility] REPOSITORY TYPE CODE TESTS RESULT OUT OF REFERENCE UNITS RANGE LAB L9200.1001 11.9-14.4 SEC High PROTIME ISTAT 37.0 Result Comment: Reference Range 11.9 - 14.4 LAB L9200.2000 Normal INR ISTAT 3.30 Result Comment: Critical Value > 3.5 Performed By: #### L9200.0000 #### [facility] Point of Care [address] [place] [address] ABD AORTIC/IVC DUPLEX Observed: 08/22/2017 Status: F Source: [place] SC[place] 2:39 PM [facility] REPOSITORY [facility] Cardiovascular Services [address] [place] [address] Abd Aortic/IVC Duplex scan 08/21/17 0902 MR#: [id number] Acct: [id number] Name: AMAURY NOGUERA Rep #: [id number] : 1940 77 From: Singh Khanna MD Attending Dr: Singh Khanna MD Status: REG CLI Ordering Dr: Singh Khanna MD Date: 08/21/17 Location: [facility] Sex: M C Admitted: Reason For Study: SMA stenosis Aorta Measurements Prox Aorta - 146.0 cm/sec Dist Aorta - 108.0 cm/sec SMA origin - 363.0 cm/sec SMA prox - 296.0 cm/sec SMA mid - 204.0 cm/sec Celiac artery - 192.0 cm/sec Hepatic artery - 143.0/ cm/sec Splenic artery - 232.0 cm/sec LELAND origin - 412.0 cm/sec LELAND prox - 291.0 cm/sec LELAND mid 125.0 cm/sec LELAND dist - 122.0 cm/sec. Procedure Aorta IVC Iliac vasculature or bypass grafts 69869. Technically difficult due to bowel gas. Exam performed in department. Interpretation Summary 1. 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 2. Celiac appears normal flow. Ordering Physician: Singh Khanna Referring Physician: Singh Khanna Performed By: Jayne Dugan RVT 08/22/171437 Date Singh Khanna MD CC: Rosa Maria Santacruz MD; Singh Khanna MD Date Dictated: 08/21/17901 Date Transcribed: 08/22/171437 Forest Resource Specialist: Signed CAROTID DUPLEX Observed: 08/22/2017 Status: F Source: [place] ULTRASOUND 2:37 PM [facility] REPOSITORY [facility] Cardiovascular Services [facility] [place] [address] Carotid Duplex Ultrasound 08/21/1728 MR#: [id number] Acct: [id number] Name: AMAURY NOGUERA Rep #: [id number] : 1940 77 From: Singh Khanna MD Attending Dr: Singh Khanna MD Status: REG CLI Ordering Dr: Singh Khanna MD Date: 08/21/17 Location: [facility] Sex: M C Admitted: Reason For Study: Carotid stenosis Rt. Velocities/BP Lt. Velocities/BP Prox CCA 96.2/18.2 cm/sec. Prox CCA 106.0/22.9 cm/sec. Mid CCA 88.5/20.5 cm/sec. Mid CCA 99.1/22.9 cm/sec. Dist CCA 86.2/21.7 cm/sec. Dist CCA 80.3/18.2 cm/sec. Prox ICA 160.0/38.3 cm/sec. Prox ICA 182.0/47.1 cm/sec. Mid ICA 143.0/36.3 cm/sec. Mid ICA 142.0/33.8 cm/sec. Dist ICA 120.0/45.2 cm/sec. Dist ICA 138.0/36.1 cm/sec. Rt. ICA/CCA = 1.8. Lt. ICA/CCA = 1.8. Prox ECA 95.0/12.3 cm/sec. Prox ECA 352.0/33.7 cm/sec. Rt. Vert. 59.2/12.9 cm/sec. Right Extracranial There is heterogeneous, irregular atherosclerotic plaque noted in the right common carotid artery. There is heterogeneous, irregular atherosclerotic plaque noted in the right internal carotid artery. There is intimal thickening but no significant atherosclerotic plaque noted in the right external carotid artery. Antegrade flow is noted in the right vertebral artery. Left Extracranial There is intimal thickening but no significant atherosclerotic plaque noted in the left common carotid artery. There is heterogeneous, irregular atherosclerotic plaque noted in the left internal carotid artery. There is heterogeneous, irregular atherosclerotic plaque noted in the left external carotid artery. Retrograde flow Lt Vert. Interpretation Summary Moderate (50-69%) stenosis right extracranial internal carotid. Moderate (50-69%) stenosis left extracranial internal carotid. Flow within the right verterbral artery is antegrade. Flow within the left verterbral artery is retrograde, consistent with a subclavian steal phenomenon. Ordering Physician: Singh Khanna Referring Physician: Singh Khanna Performed By: Jayne Dugan RVT 08/22/17 1437 Date Singh Khanna MD CC: Rosa Maria Santacruz MD; Singh Khanna MD Date Dictated: 08/21/17927 Date Transcribed: 08/22/171436 Forest Resource Specialist: Signed PROTIME W/INR Collected: 08/01/2017 Status: F Source: TED FINGERSTICK 11:39 AM [facility] REPOSITORY TYPE CODE TESTS RESULT OUT OF REFERENCE UNITS RANGE LAB L9200.1001 11.9-14.4 SEC High PROTIME ISTAT 27.8 Result Comment: Reference Range 11.9 - 14.4 LAB L9200.2000 Normal INR ISTAT 2.40 Result Comment: Critical Value > 3.5 Performed By: #### L9200.0000 #### [facility] Point of Care [address] [place] [address] [place] [address] CARDIOLOGY VISIT Observed: 07/31/2017 Status: F Source: TED REPORT 2:52 PM [facility] REPOSITORY [facility] [address] [place] [address] OFFICE VISIT Date of Service: 07/31/17 MR#: [id number] Acct: [id number] Name: AMAURY NOGUERA Calvin Rep #: [id number] : 1940 Provider: Brooks Borges MD Age/Sex: 77/M Location: [facility] Status: Signed HPI 4 M FU: Details: AMAURY NOGUERA, is a 77 M who presents to the office today for outpatient cardiovascular follow-up of a history of underlying CAD, status post [facility] PTCA/stent to the RCA-2008, status post [facility] CABG with a ZARAGOZA to the LAD and an SVG to the PDA-2016, paroxysmal atrial fibrillation/flutter, hyperlipidemia, hypertension, and carotid artery disease. At the present time he states he is doing well in cardiac rehabilitation. He has no ongoing symptoms of classic angina pectoris at rest or with exertion. There is been no report of episodes of CHF or pulmonary edema. There has been no near syncope or syncope. He has not noted any ongoing palpitations or rapid rates. As you recall he had a transthoracic echocardiogram in December 2016 at [facility]. The left ventricle had regional wall motion abnormalities with an LVEF of 65%, moderate left atrial enlargement, mild right atrial enlargement, mild to moderate mitral annular calcification extending onto the posterior mitral valve leaflet with mild focal mitral valve calcification, moderate MR, mild to moderate TR, trivial NM, and an estimated RV systolic pressure of 46 mmHg. He had a transesophageal echocardiogram performed at [facility] on 02/17/2017. 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 His remote diagnostic cardiac catheterization and PCI was performed at [facility] and [facility] in April 2009. At that time the left ventricle was thought to be normal with an LVEF of 65%, the left main coronary artery had mild calcification, the LAD had proximal mild calcification with ostial 50-75% stenosis, the LCx had minimal luminal irregularities, and the RCA was a large dominant vessel with proximal significant calcification, and ostial 75% stenosis, a proximal to mid 25-50% stenosis, and the distal 25% stenosis. His [facility] PTCA/stent occurred on 05/17/2009 at which time he received a rotational atherectomy to the ostial RCA and a LINDY to the proximal to mid RCA. At the same time an intravascular ultrasound was performed of the LAD which demonstrated no significant disease. He has progressed over time which led to his more recent evaluation and care at [facility]. This demonstrated progressive underlying CAD. Thus he underwent, on 02/12/2017, coronary bypass grafting surgery with a ZARAGOZA to the LAD and an SVG to the PDA. At the present time, as noted above, he has been doing well with no acute adverse symptoms or events. He has also had no obvious gastrointestinal bleeding process. Intake Vital Signs07/31/17 Height 5 ft 11 in 07/31/17 Weight: 185 lb 2 oz 07/31/17 Body Mass Index (BMI) 25.8 07/31/17 Blood Pressure 140/64 Intake Visit Reasons: 4 M FU Allergies lovastatin [From Mevacor] Allergy (Verified 07/31/17 14:07) Rash amlodipine Adverse Reaction (Verified 07/31/17 14:07) Swelling Medications Atorvastatin Calcium [Lipitor] 40 mg PO QHS 05/28/15 [History Confirmed 07/31/17] Ferrous Sulfate [Iron Supplement] 325 mg PO DAILY 05/28/15 [History Confirmed 07/31/17] Zinc Gluconate [Zinc] 50 mg PO DAILY 05/28/15 [History Confirmed 07/31/17] Vitamin B Complex 1 ea PO DAILY 02/07/16 [History Confirmed 07/31/17] Aspirin E.C. [Ecotrin] 81 mg PO DAILY@0800 08/29/16 [History Confirmed 07/31/17] Pantoprazole Sodium [Protonix] 40 mg PO DAILY 08/29/16 [History Confirmed 07/31/17] warfarin 5 mg tablet 5 mg PO QDAY #60 tab 06/18/17 [Rx Confirmed 07/31/17] metoprolol tartrate 50 mg tablet 50 mg PO BID 07/30/17 [History Confirmed 07/31/17] nitroglycerin 0.4 mg sublingual tablet 0.4 mg SUBLINGUAL Q5M PRN 07/30/17 [History Confirmed 07/31/17] azathioprine 50 mg tablet 50 mg PO DAILY tab 07/31/17 [History Confirmed 07/31/17] balsalazide 750 mg capsule 2,250 mg PO BID cap 07/31/17 [History Confirmed 07/31/17] lisinopril 10 mg tablet 10 mg PO BID tab 07/31/17 [History Confirmed 07/31/17] [facility] Medical History Carotid artery stenosis (Acute) Hyperlipidemia (Acute) Atherosclerotic heart disease of [place] coronary artery without angina pectoris (Chronic) Premature atrial contractions (Acute) Atrial fibrillation and flutter (Acute) prison (current) use 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 (Acute) Status post insertion of drug-eluting stent into right coronary artery for coronary artery disease (Chronic 04/2009) Right carotid bruit (Chronic) Hypertension (Chronic) Thrombocytopenia (Acute) Ulcerative colitis (Acute) Upper GI bleed (Acute) Hematemesis/vomiting blood (Inactive) History of coronary artery disease (Inactive) Hypercholesterolemia (Inactive) Thrombocytopenia (Inactive) Ulcerative colitis (Inactive) Upper GI bleed (Inactive) Surgical History Aortocoronary bypass status (Resolved 02/12/17) History of hand surgery (Resolved) History of vasectomy (Resolved) Family History Father CAD (coronary artery disease) Social History Smoking Status: Former smoker alcohol intake: current substance use type: does not use ROS Const Const: Negative for fatigue, weakness, weight gain, weight loss, frequent falls or excessive sweating Eyes Eyes: Negative for change in vision, blurry vision or transient loss of vision ENT ENT: Negative for dizziness, Negative for balance problems Cardio Chest Pain: No Palpitations: Positive for No Edema: None Muscle aches with walking: None Resp Respiratory: Negative for SOB with activity or SOB at rest GI GI: Negative vomiting or vomiting blood/hematemesis : Negative for hematuria Musc Musc: Negative for balance problems, muscle aches/ myalgia, muscle weakness or joint pain Skin Skin: Negative non-healing lesions or rash Neuro Neuro: Negative for weakness, Negative for blurry vision, Negative for dizziness, Negative for lightheadedness, Negative for frequent falls, Negative for orthostatic symptoms Tye Hematologic/Lymphatic: Negative for easy bleeding Endo Endo: Negative for fatigue or excessive sweating Psych Psych: Negative for anxiety or depression Allergy Allergy/Immunology: Negative for hives, Negative for rash Cardiology Exam Const Appearance: cooperative, healthy appearing, comfortable, no acute distress, well developed and well groomed Nutritional Appearance: average body habitus Orientation: alert, awake and oriented x3 Head Head: normal to inspection, normocephalic and atraumatic Ears: hearing grossly normal bilaterally Nose: external nose normal Face and Sinus: face symmetric Mouth: oral mucosae normal Eyes General: appearance normal, both eyes and all related structures Eyelids: eyelids normal Conjunctivae: conjunctivae normal Pupils: PERRL EOM: EOM intact bilaterally Neck Neck: normal visual inspection and full ROM carotid endarterectomy: Bilateral (Left > Right) Chest Chest inspection: normal inspection of the chest and symmetric chest movement Auscultation: Bilateral: Clear to Auscultation Cardio Palpation: normal PMI Rate: regular rate Rhythm: regular rhythm Heart sounds: S1 normal, S2 normal and positive S4 GI GI: normal to inspection, soft, no hepatosplenomegaly and bowel sounds present Neuro General: alert, awake and oriented x3 Skin Skin: no rashes or lesions noted Extremities Pulses: Normal: Right Radial Pulse, Left Radial Pulse Lower Extremity Edema: None: Bilateral Psych Psychological: normal affect Assessment AND Plan 1. Atherosclerosis of [place] coronary artery of [place] heart without angina pectoris I25.10 CABG x2- ZARAGOZA to LAD, Aorto post descending coronary artery to revers SVG 02/12/17; atherectomy to ostial RCA, LINDY to Prox/Mid RCA 04/2009 Plan At the present time he appears to be doing well without any acute symptoms of angina pectoris. He will continue risk factor modification and medical management. He will notify the office of any concerns. 2. Status post insertion of drug-eluting stent into right coronary artery for coronary artery disease Z95.5 atherectomy to ostial RCA, LINDY to Prox/Mid RCA 04/2009 Plan He does have a history of a remote RCA PTCA/stent as noted above. He is now status post CABG with an SVG to the PDA. 3. Postsurgical aortocoronary bypass status Z95.1 CABG x2- ZARAGOZA to LAD, Aorto post descending coronary artery to revers SVG 02/12/17 Plan Again he is now status post CABG with a ZARAGOZA to the LAD and an SVG to the PDA. He continues without acute symptoms. He will continue medical management and follow-up. 4. Atrial fibrillation and flutter I48.91; I48.92 Plan He does have a history of paroxysmal atrial fibrillation/flutter. He has remained in a regular rhythm. He has continued medical management which has included rate control therapy and anticoagulant therapy. He has had no obvious issues with respect to his anticoagulant therapy. 5. Hyperlipidemia, unspecified hyperlipidemia type E78.5 Plan His lipid labs were reviewed. They appear to be under reasonably good control. He will continue medical management and follow-up. 6. Essential hypertension I10 Plan He has blood pressure is being followed. His medications will be adjusted as needed. 7. Bilateral carotid artery stenosis I65.23 Plan He does have a history of carotid artery disease. This was evaluated locally in October 2015. At that time he had mild disease on the right and moderate disease on the left. He states there were similar type findings at [facility] prior to his CABG. 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 His diagnoses, with respect interaction with his medications, will be followed as deemed appropriate with laboratory studies, etc. Plan Detail Additional Comments He will be scheduled for future outpatient cardiovascular follow-up in approximately 6-9 months unless needed sooner. Thank you for allowing me to participate in the care of your patient. Please don't hesitate to call if any issues arise. This note was generated using a voice recognition system and there may be incorrect words, spelling or punctuation that were not noted when reviewing the office note prior to saving. Follow Up 6 Months (PFM (6-9 months)) Coding Level of Care Code Off vis,est,level 3 Diagnoses Atherosclerosis of [place] coronary artery of [place] heart without angina pectoris I25.10 [place] vs. 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 transplanted heart: [place] heart Status post insertion of drug-eluting stent into right coronary artery for coronary artery disease Z95.5 Postsurgical aortocoronary bypass status Z95.1 Atrial fibrillation and flutter I48.91; I48.92 Hyperlipidemia, unspecified hyperlipidemia type E78.5 Hyperlipidemia type: unspecified Essential hypertension I10 Hypertension type: essential hypertension Bilateral carotid artery stenosis I65.23 Laterality: bilateral prison current use of anticoagulant Z79.01 07/31/17 1452 <Electronically signed by Brooks Borges MD> Date Brooks Borges MD Cosigner Signature: Date (if applicable) CC: Rosa Maria Santacruz MD ALLERGIES ALLERGIES DATE TYPE / CODE NAME / CODE REACTION SEVERITY SOURCE 04/06/2018 Drug lovastatin/F Rash Unknown [place] Replaced By [facility] Allergy/4160 [id number]( Hospital [address]706(SNOMED NORM) Repository CT) 04/06/2018 Drug amlodipine/F Swelling Unknown [place] Replaced By [facility] Allergy/4160 [id number]( Hospital [address]45(SNOMED NORM) Repository CT) ENCOUNTERS ENCOUNTERS ADMIT/DISCHARGE ACCOUNT ADMITTING ENCOUNTER LOCATION SOURCE NUMBER CLASS 07/06/2018 [id number] Ambulatory [place] 5 [facility] ing:MTLAB Repository 06/16/2018 [id number] Ambulatory [place] 4 [facility] ing:LABSPEC Repository 06/10/2018 [id number] Ambulatory [place] 3 [facility] ing:MTLAB Repository 06/01/2018/ [id number] Ambulatory [place] 8 0 [facility] ing:MTLAB Repository 05/06/2018/ [id number] Ambulatory [place] 8 2 [facility] ing:MTLAB Repository 04/15/2018/ [id number] Ambulatory [place] 8 0 [facility] ing:CLSP Repository 04/08/2018/ [id number] Ambulatory [place] 8 7 [facility] ing:MTLAB Repository 04/06/2018/ [id number] Ambulatory [facility] [place] 8 5 [facility] Repository 03/24/2018/ [id number] [facility]ulatory [facility] [place] [facility] Rep[facility] 02/27/2018 [id number] Ambulatory [place] [facility] Repository 02/25/2018/ [id number] Ambulatory [place] 8 [facility] ing:MTLAB Repository 01/23/2018 [id number] Ambulatory [place] [facility] ing:MT[facility] Repository 12/18/2017/ [id number] Ambulatory [place] 8 4 [facility] ing:MTLAB Repository 11/14/2017/ [id number] [facility]ulatory [place] [facility] ing:MTLAB Repository 10/22/2017 [id number] Ambulatory [place] [facility] ing:LAB.FUTUR Repository E 10/22/2017/ [id number] Ambulatory [place] 8 6 [facility] ing:MTLAB Repository 09/15/2017/ [id number] Ambulatory [place] 8 5 [facility] ing:MTLAB Repository 09/07/2017 [id number] Ambulatory [place] 4 [facility] ing:CR Repository 08/29/2017/ [id number] Ambulatory [place] 8 5 [facility] ing:MTLAB Repository 08/21/2017 [id number] [facility] [place] [facility] ing[facility] Repository 08/20/2017/ [id number] Ambulatory [place] 8 2 [facility] ing:CR Repository 08/01/2017/ [id number] Ambulatory Ted [place] 8 5 [facility] ing:MTLAB Repository 07/31/2017/ [id number] Ambulatory [facility]:B [place] 8 1 [facility] Repository 07/30/2017 [id number] Ambulatory [facility]:B [place] 6 [facility] Repository 07/30/2017/ [id number] Ambulatory Ted [place] 8 1 [facility] ing:CR Repository PAYERS PAYERS ENCOUNTER GUARANTOR PAYER SUBSCRIBER SOURCE 07/06/2018 AMAURY R Primary CRICKETENT R [place] [id number] E Insurance:MEDICARE HORNINGDOB: [facility] PART A [facility] [id number] Number: Repository [address]Akd: 330 [id number] [phone] () Date:2018-06-01 07/06/2018 Secondary VINCENT R [place] Insurance:MUTUAL OF HORNINGDOB: Critical access hospital Number: [id number] Hospital [id number] Repository Date:8507-99-12ZZWKZV [place], [place] [address]ID: 07/06/2018 Tertiary NOT GIVENUNK [place] Insurance:SELF PAY [facility] Number: Effective Repository Date:2018-06-29 06/16/2018 VINCENT R Primary VINCENT R [place] [id number] E Insurance:MEDICARE HORNINGDOB: [facility] [id number] Number: Repository [address]Kff: 330 [id number] [phone] () Date:2018-06-16 06/16/2018 Secondary VINCENT R [place] Insurance:MUTUAL OF HORNINGDOB: Critical access hospital Number: [id number] Hospital [id number] Repository Date:0142-10-55UVIRXA [place] [address]PG: 06/16/2018 Tertiary NOT GIVENUNK [place] Insurance:SELF PAY [facility] Number: Effective Repository Date:2018-06-16 06/10/2018 CRICKETENT R Primary VINCENT R Ted [id number] E Insurance:MEDICARE HORNINGDOB: [facility] PART A [facility] [id number] Number: Repository [id number]: 330 [id number] [phone] () Date:2018-06-10 06/10/2018 Secondary VINCENT R [place] Insurance:MUTUAL OF HORNINGDOB: Critical access hospital Number: [id number] Hospital [id number] Repository Date:0616-78-84ZEWYGO [place], [place] [address]RW: 06/10/2018 Tertiary NOT GIVENUNK [place] Insurance:SELF PAY [facility] Number: Effective Repository Date:2018-06-10 06/01/2018 VINCENT R Primary VINCENT R [place] [id number] E Insurance:MEDICARE HORNINGDOB: [facility] PART A [facility] [id number], [place] Number: Repository [id number]: [phone] [id number] [phone] () Date:2018-06-01 06/01/2018 Secondary VINCENT R [place] Insurance:MUTUAL OF HORNINGDOB: Critical access hospital Number: [id number] Hospital [id number] Repository Date:0502-56-41NMNTNL [place] [address]UY: 06/01/2018 Tertiary NOT GIVENUNK [place] Insurance:SELF PAY [facility] Number: Effective Repository Date:2018-06-01 05/06/2018 VINCENT R Primary VINCENT R Ted [id number] E Insurance:MEDICARE HORNINGDOB: [facility] PART A [facility] [id number], [place] Number: Repository [id number]: [phone] [id number] [phone] () Date:2006-06-30 05/06/2018 Secondary VINCENT R [place] Insurance:MUTUAL OF HORNINGDOB: Critical access hospital Number: [id number] Hospital [id number] Repository Date:3197-97-44YBUMXY [place], [place] [address]QB: 05/06/2018 Tertiary NOT GIVENUNK [place] Insurance:SELF PAY [facility] Number: Effective Repository Date:2018-04-30 04/15/2018 VINCENT R Primary VINCENT R [place] [id number] E Insurance:MEDICARE HORNINGDOB: [facility] PART A [facility] [id number], [place] Number: Repository [id number]: 330 [id number] [phone] () Date:2018-03-06 04/15/2018 Secondary VINCENT R [place] Insurance:MUTUAL OF HORNINGDOB: Critical access hospital Number: [id number] Hospital [id number] Repository Date:6984-60-58RFBJME OF [facility], [place] [address]AD: 04/15/2018 Tertiary NOT GIVENUNK [place] Insurance:SELF PAY [facility] Number: Effective Repository Date:2018-03-06 04/08/2018 VINCENT R Primary VINCENT R [place] [id number] E Insurance:MEDICARE HORNINGDOB: [id number] [place] Number[facility] Repository [id number]: 330 [id number] [phone] () Date:2006-06-30 04/08/2018 Secondary VINCENT R [place] Insurance:MUTUAL OF HORNINGDOB: Critical access hospital Number: [id number] Hospital [id number] Repository Date:2647-15-93OVRJRP [facility] [place] [address]VO: 04/08/2018 Tertiary NOT GIVENUNK [place] Insurance:SELF PAY [facility] Number: Effective Repository Date:2018-03-31 04/06/2018 VINCENT R Primary VINCENT R Ted [id number] E Insurance:MEDICARE HORNINGDOB: [facility] PART A [facility] [id number] Number: Repository [address]Skk: 330 [id number] [phone] () Date:2017-07-31 04/06/2018 Secondary VINCENT R [place] Insurance:MUTUAL OF HORNINGDOB: Critical access hospital Number: [id number] Hospital [id number] Repository Date:4842-92-55FEKAYAWEBSTER, [place] [address]CQ: 04/06/2018 Tertiary NOT GIVENUNK [place] Insurance:SELF PAY [facility] Number: Effective Repository Date:2018-04-06 03/24/2018 VINCENT R Primary VINCENT R [place] [id number] E Insurance:MEDICARE HORNINGDOB: [facility] PART A [facility] [id number], [place] Number: Repository [phone]: [phone] [id number] [phone] () Date:2006-06-30 03/24/2018 Secondary VINCENT R [place] Insurance:MUTUAL OF HORNINGDOB: Critical access hospital Number: [id number] Hospital [id number] Repository Date:1455-70-71QQOKFQWEBSTER, [place] [address]QM: 03/24/2018 Tertiary NOT GIVENUNK [place] Insurance:SELF PAY [facility] Number: Effective Repository Date:2018-03-04 02/27/2018 CRICKETENT R Primary VINCENT R Ted [id number] E Insurance:MEDICARE HORNINGDOB: [facility] PART A [facility] [id number] Number: Repository [id number]: [phone] [id number] [phone] () Date:2018-02-24 02/27/2018 Secondary VINCENT R [place] Insurance:MUTUAL OF HORNINGDOB: Critical access hospital Number: [id number] Hospital [id number] Repository Date:6045-87-49QVNGHMWEBSTER, [place] [address]LC: 02/27/2018 Tertiary NOT GIVENUNK [place] Insurance:SELF PAY [facility] Number: Effective Repository Date:2018-02-24 02/25/2018 VINCENT R Primary VINCENT R [place] [id number] E Insurance:MEDICARE HORNINGDOB: [facility] [place] PART [facility] [id number], [place] Number: Repository [address]Azb: 330 [id number] [phone] () Date:2006-06-30 02/25/2018 Secondary VINCENT R [place] Insurance:MUTUAL OF HORNINGDOB: Critical access hospital Number: [id number] Hospital [id number] Repository Date:3409-17-58NELGEYWEBSTER, [place] [address]MT: 02/25/2018 Tertiary NOT GIVENUNK [place] Insurance:SELF PAY [facility] Number: Effective Repository Date:2017-12-26 01/23/2018 VINCENT R Primary VINCENT R Ted [id number] E Insurance:MEDICARE HORNINGDOB: [facility] PART A [facility] [id number], [place] Number: Repository [address]Lse: 330 [id number] [phone] () Date:2018-01-23 01/23/2018 Secondary VINCENT R [place] Insurance:MUTUAL OF HORNINGDOB: Critical access hospital Number: [id number] Hospital [id number] Repository Date:7611-91-82GIAGZY [place] [address]ND: 01/23/2018 Tertiary NOT GIVENUNK [place] Insurance:SELF PAY [facility] Number: Effective Repository Date:2018-01-23 12/18/2017 VINCENT R Primary VINCENT R Ted [id number] E Insurance:MEDICARE HORNINGDOB: [facility] [place] PART A [facility] [id number], [place] Number: Repository [id number]: [phone] [id number] [phone] () Date:2006-06-30 12/18/2017 Secondary VINCENT R [place] Insurance:MUTUAL OF HORNINGDOB: Critical access hospital Number: [id number] Hospital [id number] Repository Date:3921-36-26HAXOEBWEBSTER, [place] [address]IO: 12/18/2017 Tertiary NOT GIVENUNK [place] Insurance:SELF PAY [facility]placed By [facility]: Effective Repository Date:2017-11-27 11/14/2017 VINCENT R Primary VINCENT R [place] [id number] E Insurance:MEDICARE HORNINGDOB: [facility] [id number] Number: Repository [id number]: [phone] [id number] [phone] () Date:2006-06-30 11/14/2017 Secondary VINCENT R Ted Insurance:MUTUAL OF HORNINGDOB: Critical access hospital Number: [id number] Hospital [id number] Repository Date:8777-81-26RKCAJG OF [facility], [place] [address]GM: 11/14/2017 Tertiary NOT GIVENUNK [place] Insurance:SELF PAY Replaced By [facility] Number: Effective Repository Date:2017-10-28 10/22/2017 VINCENT R Primary VINCENT R [place] [id number] E Insurance:MEDICARE HORNINGDOB: Community [place] PART A [id number] [place] Number: Repository [id number]: [phone] [id number] [phone] () Date:2017-10-08 10/22/2017 Secondary VINCENT R Ted Insurance:MUTUAL OF HORNINGDOB: Critical access hospital Number: [id number] Hospital [id number] Repository Date:1943-46-33KXKYJR [place], [place] [address]HC: 10/22/2017 Tertiary NOT GIVENUNK [place] Insurance:SELF PAY [facility] Number: Effective Repository Date:2017-10-08 10/22/2017 VINCENT R Primary VINCENT R Ted [id number] E Insurance:MEDICARE HORNINGDOB: Community [place] PART A [facility] [id number], [place] Number: Repository [id number]: [phone] [id number] [phone] () Date:2006-06-30 10/22/2017 Secondary VINCENT R Ted Insurance:MUTUAL OF HORNINGDOB: Critical access hospital Number: [id number] Hospital [id number] Repository Date:5433-31-12YZDDLOLOYALL, [place] [address]NZ: 10/22/2017 Tertiary NOT GIVENUNK [place] Insurance:SELF PAY [facility] Number: Effective Repository Date:2017-09-29 09/15/2017 VINCENT R Primary VINCENT R [place] [id number] E Insurance:MEDICARE HORNINGDOB: [facility] PART A [facility] [id number], [place] Number: Repository [phone]: [phone] [id number] [phone] () Date:2017-09-15 09/15/2017 Secondary VINCENT R Ted Insurance:MUTUAL OF HORNINGDOB: Critical access hospital Number: [id number] Hospital [id number] Repository Date:8967-96-43MLITSOWEBSTER, [place] [address]AK: 09/15/2017 Tertiary NOT GIVENUNK [place] Insurance:SELF PAY [facility] Number: Effective Repository Date:2017-09-15 09/07/2017 VINCENT R Primary VINCENT R Ted [id number] E Insurance:MEDICARE HORNINGDOB: [facility] PART A [facility] [id number], [place] Number: Repository [id number]: [phone] [id number] [phone] () Date:2006-06-30 09/07/2017 Secondary VINCENT R Ted Insurance:MUTUAL OF HORNINGDOB: Critical access hospital Number: [id number] Hospital [id number] Repository Date:3265-59-41LQIBJDWEBSTER, [place] [address]AJ: 09/07/2017 Tertiary NOT GIVENUNK [place] Insurance:SELF PAY [facility] Number: Effective Repository Date:2017-08-28 08/29/2017 VINCENT R Primary VINCENT R [place] [id number] E Insurance:MEDICARE HORNINGDOB: Community [place] PART A [facility] [id number], [place] Number: Repository [id number]: 330 [id number] [phone] () Date:2006-06-30 08/29/2017 Secondary VINCENT R [place] Insurance:MUTUAL OF HORNINGDOB: Critical access hospital Number: [id number] Hospital [id number] Repository Date:1514-38-07CHLIOOWEBSTER, [place] [address]WJ: 08/29/2017 Tertiary NOT GIVENUNK [place] Insurance:SELF PAY [facility] Number: Effective Repository Date:2017-08-28 08/21/2017 VINCENT R Primary VINCENT R Ted [id number] E Insurance:MEDICARE HORNINGDOB: [facility] PART A [facility] [id number], [place] Number: Repository [id number]: 330 [id number] [phone] () Date:2017-08-04 08/21/2017 Secondary VINCENT R Ted Insurance:MUTUAL OF HORNINGDOB: Critical access hospital Number: [id number] Hospital [id number] Repository Date:0900-57-16FDSVRTWEBSTER, [place] [address]WM: 08/21/2017 Tertiary NOT GIVENUNK [place] Insurance:SELF PAY [facility] Number: Effective Repository Date:2017-08-04 08/20/2017 VINCENT R Primary VINCENT R [place] [id number] E Insurance:MEDICARE HORNINGDOB: [facility] PART A [facility] [id number], [place] Number: Repository [id number]: 330 [id number] [phone] () Date:2006-06-30 08/20/2017 Secondary VINCENT R [place] Insurance:MUTUAL OF HORNINGDOB: Critical access hospital Number: [id number] Hospital [id number] Repository Date:5271-45-90QKEPDPST. [facility] [place] [address]CE: 08/20/2017 Tertiary NOT GIVENUNK Ted Insurance:SELF PAY [facility] Number: Effective Repository Date:2017-07-31 08/01/2017 VINCENT R Primary VINCENT R Ted [id number] E Insurance:MEDICARE HORNINGDOB: Community [place] PART A [facility] [id number], [place] Number: Repository [id number]: [phone] [id number] [phone] () Date:2006-06-30 08/01/2017 Secondary VINCENT R [place] Insurance:MUTUAL OF HORNINGDOB: Critical access hospital Number: [id number] Hospital [id number] Repository Date:7482-32-53TODZIGLOYALL, [place] [address]FA: 08/01/2017 Tertiary NOT GIVENUNK [place] Insurance:SELF PAY [facility] Number: Effective Repository Date:2017-06-01 07/31/2017 VINCENT R Primary VINCENT R Ted [id number] E Insurance:MEDICARE HORNINGDOB: [facility] PART A [facility] [id number], [place] Number: Repository [id number]: 330 [id number] [phone] () Date:2017-06-07 07/31/2017 Secondary VINCENT R [place] Insurance:MUTUAL OF HORNINGDOB: Critical access hospital Number: [id number] Hospital [id number] Repository Date:8681-55-41ZBXRRILOYALL, [place] [address]BP: 07/31/2017 Tertiary NOT GIVENUNK [place] Insurance:SELF PAY [facility] Number: Effective Repository Date:2017-06-07 07/30/2017 Vincent R Primary Vincent R [place] [id number] E Insurance:MEDICARE HorningDOB: [facility] PART A [facility] [id number] Number: Repository [phone]: [phone] [id number] [phone] (HP) Date:2017-07-30 07/30/2017 Secondary Vincent R [place] Insurance:MUTUAL OF HorningDOB: Critical access hospital Number: [id number] Hospital [id number] Repository Date:4252-09-61OBDSIV OF [place] [address]BA: 07/30/2017 Tertiary NOT GIVENUNK [place] Insurance:SELF PAY [facility] Number: Effective Repository Date:2017-07-30 07/30/2017 Vincent R Primary Vincent R Ted [id number] E Insurance:MEDICARE HorningDOB: [facility] PART A [facility] [id number], [place] Number: Repository [id number]: [phone] [id number] [phone] () Date:2006-06-30 07/30/2017 Secondary Vincent R Ted Insurance:MUTUAL OF HorningDOB: Critical access hospital Number: [id number] Hospital [id number] Repository Date:7632-27-86ATQDRJ OF [facility] [address]FU: 07/30/2017 Tertiary NOT GIVENUNK Ted Insurance:SELF PAY [facility] Number: Effective Repository Date:2017-06-30
== END ==
PROVIDERS: Family Provider Family Medicine; PCP Family Medicine; Referring Provider Internal Medicine Gastroenterology; Visit Provider Internal Medicine Gastroenterology
DX: K51.919 Ulcerative colitis, unspecified with unspecified complications (principal)
CPT/HCPCS: 36415

== ENCOUNTER → 2018-06-16 08:00 | Outpatient (CLI) | payer MEDICARE, OTHER, SELFPAY ==
[2018-04-30 16:54] VITALS: BMI 25.8
--- NOTE | 2018-06-16 08:00 | COLBX_PTH ---
PATIENT: AMAURY NOGUERA [facility] U#:[id number] AGE/SX: 84/M ROOM: RE06/16/[address]: Dr. Amaury Matthews MD : [id number] BED: DIS: SPEC #: [id number] RECD: 06/16/18 16:10 STATUS: KANDICE ALEKSEY #: [id number] AMBROSE: 06/16/18 08:[address]: Amaury Matthews DEPT: SURGICAL PATHOLOGY RECD BY: Leonel Wynne ENTERED: 06/17/18 10:19 SP TYPE: COLON BX OT DR: Dr. Rosa Maria Santacruz MD [facility] Tissues: A - Right colon B - Left colon Procedures: Surgery Specimen Level IV HEADER OPERATION: Colonoscopy with biopsy PRE-OP DIAGNOSIS: History ulcerative colitis TISSUE SUBMITTED: A - Biopsy right colon, rule out ulcerative colitis/dysplasia, B - Biopsy left colon, rule out ulcerative colitis/dysplasia MICROSCOPIC DIAGNOSIS A. Right colon, biopsy: Mild architectural change. No evidence of active colitis. B. Left colon, biopsy: Mild architectural change. No evidence of active colitis. AM:janusz 06/18/18 MICROSCOPIC DESCRIPTION Slides are reviewed. GROSS DESCRIPTION A - Received in fixative is one container labeled with the patient's name and designated right colon biopsy. The specimen consists of multiple irregular fragments of light iverson soft tissue that in aggregate measure 1 x 0.6 x 0.1 cm. The specimen is totally submitted in one cassette. B - Received in fixative is one container labeled with the patient's name and designated left colon biopsy. The specimen consists of multiple irregular fragments of light iverson soft tissue that in aggregate measure 1.2 x 0.5 x 0.1 cm. The specimen is totally submitted in one cassette. / AM:janusz 06/17/18 TC:5 CPT: 40619 x2
--- OUTSIDE RECORDS SUMMARY | 2018-09-18 05:57 | XMS RPT_ITS ---
:1940 Author Organization OHIP Support Name Relationship Address Phone KARLA NOGUERALY I Unavailable [address] + [place] [address] R Unavailable Unavailable Unavailable CHUCKIE, JULIA I Unavailable [address] + [place] [address] R Unavailable Unavailable Unavailable CHUCKIE, JULIA I Unavailable [address] + [place] [address] R Unavailable Unavailable Unavailable CHUCKIE, JULIA I Unavailable [address] + [place] [address] R Unavailable Unavailable Unavailable CHUCKIE, JULIA I Unavailable [address] + [place] [address] R Unavailable Unavailable Unavailable CHUCKIE, JULIA I Unavailable [address] + [place] [address] R Unavailable Unavailable Unavailable CHUCKIE, JULIA I Unavailable [address] + [place] [address] R Unavailable Unavailable Unavailable CHUCKIE, JULIA I Unavailable [address] + [place] [address] R Unavailable Unavailable Unavailable CHUCKIE, JULIA I Unavailable [address] + [place] [address] R Unavailable Unavailable Unavailable CHUCKIE, JULIA I Unavailable [address] + [place] [address] R Unavailable Unavailable Unavailable CHUCKIE, JULIA I Unavailable [address] + [place] [address] R Unavailable Unavailable Unavailable CHUCKIE, JULIA I Unavailable [address] + [place] [address] R Unavailable Unavailable Unavailable CHUCKIE, JULIA I Unavailable [address] + [place] [address] R Unavailable Unavailable Unavailable CHUCKIE, JULIA I Unavailable [address] + [place] [address] R Unavailable Unavailable Unavailable CHUCKIE, JULIA I Unavailable [address] + [place] [address] R Unavailable Unavailable Unavailable CHUCKIE, JULIA I Unavailable [address] + [place] [address] R Unavailable Unavailable Unavailable CHUCKIE, JULIA I Unavailable [address] + [place] [address] R Unavailable Unavailable Unavailable CHUCKIE, JULIA I Unavailable [address] + [place] [address] R Unavailable Unavailable Unavailable CHUCKIE, JULIA I Unavailable [address] + [place] [address] R Unavailable Unavailable Unavailable CHUCKIE, JULIA I Unavailable [address] + [place] [address] R Unavailable Unavailable Unavailable CHUCKIE, JULIA I Unavailable [address] + [place] [address] R Unavailable Unavailable Unavailable CHUCKIE, JULIA I Unavailable [address] + [place] [address] R Unavailable Unavailable Unavailable CHUCKIE, JULIA I Unavailable [address] + [place] [address] R Unavailable Unavailable Unavailable CHUCKIE, JULIA Unavailable [address] + [place] [address] R Unavailable Unavailable Unavailable CHUCKIE, JULIA Unavailable [address] + [place] [address] R Unavailable Unavailable Unavailable Care Team Providers Name Role Phone Amaury Matthews Attending Unavailable Amaury Matthews Referring Unavailable Rosa Maria Santacruz Primary Care Unavailable Brooks Borges Attending Unavailable Brooks Borges Referring Unavailable Rosa Maria Santacruz Primary Care Unavailable Brooks Borges Attending Unavailable Brooks Borges Referring Unavailable Rosa Maria Santacruz Primary Care Unavailable Amaury Matthews Consulting Unavailable Brooks Borges Attending Unavailable Brooks Borges Referring Unavailable Rosa Maria Santacruz Primary Care Unavailable Jabour, Vincent Consulting Unavailable Moodispaw, Brooks Attending Unavailable MoodispawBrooks Referring Unavailable Jolliff, Rosa Maria Primary Care Unavailable Jabour, Amaury Consulting Unavailable [place], Brooks Attending Unavailable [place], Brooks Referring Unavailable Jolliff, Rosa Maria Primary Care Unavailable Jabour, Amaury Consulting Unavailable Moodispajason, Brooks Attending Unavailable MoodispawBrooks Referring Unavailable Jolliff, Rosa Maria Primary Care Unavailable Jabour, Amaury Consulting Unavailable [place]ispaw, Brooks Attending Unavailable [place], Brooks Referring Unavailable Jolliff, Rosa Maria Primary Care Unavailable Moodispaw, Brooks Attending Unavailable [place], Brooks Referring Unavailable Jolliff, Rosa Maria Primary Care Unavailable Jabour, Amaury Attending Unavailable Jabour, Amaury Referring Unavailable Jolliff, Rosa Maria Primary Care Unavailable Moodispaw, Brooks Attending Unavailable Moodispaw, Brooks Referring Unavailable Jolliff, Rosa Maria Primary Care Unavailable Jabour, Amaury Consulting Unavailable Singh Khanna Attending Unavailable Singh Khanna Referring Unavailable Jolliff, Rosa Maria Primary Care Unavailable Jabour, Amaury Attending Unavailable Jabour, Amaury Referring Unavailable Jolliff, Rosa Maria Primary Care Unavailable MoodispawBrooks Consulting Unavailable Moodispajason, Brooks Attending Unavailable Mood[place], Brooks Referring Unavailable Jolliff, Rosa Maria Primary Care Unavailable Jabour, Panchoent Consulting Unavailable Jabour, Amaury Attending Unavailable Jolliff, Rosa Maria Primary Care Unavailable Moodispajason, Brooks Attending Unavailable MoodispaBrooks gomez Referring Unavailable Jolliff, Rosa Maria Primary Care Unavailable Moodispajason, Brooks Attending Unavailable Jolliff, Rosa Maria Referring Unavailable Jolliff, Rosa Maria Primary Care Unavailable Moodispaw, Brooks Attending Unavailable MoodispawBrooks Referring Unavailable Jolliff, Rosa Maria Primary Care Unavailable Teresa Rodríguez Attending Unavailable MoodispawBrooks Attending Unavailable Jolliff, Rosa Maria Primary Care Unavailable Moodispajason, Brooks Referring Unavailable Singh Khanna Attending Unavailable Jolliff, Rosa Maria Primary Care Unavailable Singh Khanna Referring Unavailable Moodispajason, Brooks Attending Unavailable Jolliff, Rosa Maria Referring Unavailable Moodispaw, Brooks Attending Unavailable MoodispaBrooks gomez Referring Unavailable Jolliff, Rosa Maria Primary Care Unavailable Singh Khanna Attending Unavailable Singh Khanna Referring Unavailable Jolliff, Rosa Maria Primary Care Unavailable Moodispajason, Brooks Attending Unavailable MoodispaBrooks gomez Referring Unavailable Jolliff, Rosa Maria Primary Care Unavailable PROBLEMS PROBLEMS DATE TYPE CONDITION / CODE ATTENDING STATUS SOURCE 06/29/2018 Unknown I48.91 - Unspecified MoodisBrooks valente Active [place] atrial fibrillation / Community I48.91(ICD-10) Hospital Repository 06/29/2018 Unknown I48.92 - Unspecified MoodisBrooks valente Active [place] atrial flutter / Community I48.92(ICD-10) Hospital Repository 06/29/2018 Unknown Z79.01 - halfway MoodisBrooks valente Active [place] (current) use of Community 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 / Hospital Z79.01(ICD-10) Repository 06/02/2018 Unknown 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, unspecified, Community without complications Hospital / K51.90(ICD-10) Repository 03/24/2018 Unknown I11.9 - Hypertensive Singh Khanna A Active [place] heart disease without Community heart failure / Hospital I11.9(ICD-10) Repository 08/21/2017 Unknown I10 - Essential Singh Khanna A Active [place] (primary) Community hypertension / Hospital I10(ICD-10) Repository 08/21/2017 Unknown I65.23 - Occlusion Singh Khanna A Active [place] [facility] bilateral carotid Hospital arteries / Repository I65.23(ICD-10) 08/21/2017 Unknown I77.1 - Stricture of Singh Khanna A Active [place] artery / Community I77.1(ICD-10) Hospital Repository 08/21/2017 Unknown E78.00 - Pure Singh Kahnna A Active [place] hypercholesterolemia, Community unspecified / Hospital E78.00(ICD-10) Repository 08/21/2017 Unknown I51.9 - Heart Singh Khanna A Active [place] disease, unspecified Community / I51.9(ICD-10) Hospital Repository 08/21/2017 Unknown D64.9 - Anemia, Singh Khanna A Active [place] unspecified / Community D64.9(ICD-10) Hospital Repository 07/31/2017 Unknown I25.10 - NinoisBrooks valente Active [place] Atherosclerotic heart Community disease of [place] [facility] coronary artery Repository without angina pectoris [...] Status: F Source: [place] FING[place] 11:23 AM [facility] [place] TYPE CODE TESTS RESULT OUT OF REFERENCE UNITS RANGE LAB L9200.1001 11.9-14.4 SEC High PROTIME ISTAT 28.7 Result Comment: Reference Range 11.9 - 14.4 LAB L9200.2000 Normal INR ISTAT 2.50 Result Comment: Critical Value > 3.5 Performed By: #### L9200.0000 #### [facility] Point [place] [address] COLON BIOPSY (CHOOSE Observed: 06/16/2018 Status: F Source: [place] SITE) 8:00 AM [facility] [place] Patient: AMAURY NOGUERA : 1940 (77/M) Acct Num: [id number] Phys: Amaury Matthews Unit Num: [id number] Loc: [facility]SPEC Specimen: [id number] Received: 06/16/18 - 0 Spec Type: COLON [...] one cassette. / AM:rg 06/17/18 TC:5 CPT: 07788 x2 HEADER OPERATION: Colonoscopy with biopsy PRE-OP [...] evidence of active colitis. AM:janusz 06/18/18 Signed Zahc Jair, DO 06/18/18 <signature on file> Performed By: #### PCOLBX #### [facility] [address] [place], [place], [address] MISCELLANEOUS LAB Collected: 06/10/2018 Status: F Source: [place] PROCEDURE 1:19 PM [facility] [place] Order Comment: Comments: PROMETHEUS Test(s) Ordered: PROMETHEUS TYPE CODE TESTS RESULT OUT OF RANGE REFERENCE UNITS LAB L801.1541 Normal [facility] [place] [facility] [place] Result Comment: Scanned image report available in EMR Performed By: #### L801.1541 #### [facility] [address] [place], [place], [address] PROTIME W/INR Collected: 06/01/2018 Status: F Source: [place] FINGERSTICK 12:01 PM [facility] [place] TYPE CODE TESTS RESULT OUT OF REFERENCE UNITS RANGE LAB L9200.1001 11.9-14.4 SEC High PROTIME ISTAT 30.6 Result Comment: Reference Range 11.9 - 14.4 LAB L9200.2000 Normal INR ISTAT 2.70 Result Comment: Critical Value > 3.5 Performed By: #### L9200.0000 #### [facility] Point of Care [address] [place], [place] [address] CBC W/DIFF, AUTOMATED Collected: 05/06/2018 Status: F Source: [place] 11:29 AM [facility] [place] TYPE CODE TESTS RESULT OUT OF [...] Lymph 0.68 Performed By: #### L100.0100 #### [facility] [address] [facility] [place], [address] OPERATIVE REPORT Observed: 04/15/2018 Status: F Source: [place] 11:32 AM [facility] [place] [facility] [facility] Medical Records Department [address] [place] [address] Operative Report 04/15/18 1126 MR#: [id number] Acct: [id number] Name: AMAURY NOGUERA Rep #: [id number] : 1940 77 From: Singh Khanna MD PCP: Rosa Maria Santacruz MD Status: REG [place] Location: [facility] Problem List (1) Superior mesenteric artery [...] Description of Procedure: Patient brought to the Utility Systems Repairer Operator. Underwent the appropriate timeout consent. Underwent sedation. Prepped and draped in a sterile fashion. We did ultrasound-guided access retrograde in the right common femoral artery. Put a 6 [place] sheath and gave 3000 units of heparin. [...] the wire and we brought in a [facility] guiding catheter. We then did a selective [...] Status: F Source: [place] FINGERSTICK 9:35 AM [facility] [place] [facility] TYPE CODE TESTS RESULT OUT OF RANGE REFERENCE UNITS LAB L9200.1001 11.9-14.4 SEC Normal PROTIME ISTAT 12.0 Result Comment: Reference Range 11.9 - 14.4 LAB L9200.2000 Normal INR ISTAT 1.00 Result Comment: Critical Value > 3.5 Performed By: #### L9200.0000 #### [facility] Point of Care [address] [place], [place] [id number] CBC-COMPLETE BLOOD CNT Collected: 04/15/2018 Status: F Source: [place] NO DIFF 9:07 AM [facility] [place] TYPE CODE TESTS RESULT OUT OF [...] MPV 9.4 Performed By: #### L100.0500 #### [facility] [address] [place], [address] RENAL PROFILE Collected: 04/15/2018 Status: F Source: [place] 9:07 AM [facility] [place] [facility] TYPE CODE TESTS RESULT OUT OF [...] CO2 28.0 Performed By: #### L500.3600 #### [facility] [address] [place], [place] [address]. [place], [place], [address] PROTIME W/INR Collected: 04/08/2018 Status: F Source: [place] FINGERSTICK 10:23 AM [facility] [place] [facility] TYPE CODE TESTS RESULT OUT OF REFERENCE UNITS RANGE LAB L9200.1001 11.9-14.4 SEC High PROTIME ISTAT 33.6 Result Comment: Reference Range 11.9 - 14.4 LAB L9200.2000 Normal INR ISTAT 2.90 Result Comment: Critical Value > 3.5 Performed By: #### L9200.0000 #### [facility] Point of Care [address] [place], [place] [address] CARDIOLOGY VISIT Observed: 04/06/2018 Status: F Source: [place] REPORT 3:07 PM [facility] [place] [facility] [address] [place] [address] OFFICE VISIT Date of Service: 04/06/18 MR#: [id number] Acct: [id number] Name: AMAURY NOGUERA Rep #: [id number] : 1940 Provider: Brooks Borges MD Age/Sex: 77/M Location: [facility] [place] Status: Signed HPI HPI Details: AMAURY NOGUERA, [...] scheduled on 04/15/2018 to be performed at [facility] with peripheral angiography. Intake Vital Signs04/06/18 Height 5 ft 11 in 04/06/18 Weight: 192 lb 04/06/18 Body Mass Index (BMI) 26.7 04/06/18 Blood Pressure 148/84 H 04/06/18 Blood Pressure Location Rt brachial 04/06/18 Blood Pressure Position Sitting Intake Visit Reasons: 9 M FU Procurement Forester Required: No Accompanied by: none Is patient [...] (Acute) Hyperlipidemia (Acute) Atherosclerotic heart disease of [place] coronary artery without angina pectoris (Chronic) Premature atrial contractions (Acute) Atrial fibrillation and flutter (Acute) halfway (current) use 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 (Acute) Right carotid [...] He had a stress test performed at [facility] on 05/16/2017 The patient exercised on [...] He had a cardiac catheterization performed at [facility] on 05/12/2009 FINAL IMPRESSION 1. Elevated [...] RCA He eventually underwent repeat evaluation at [facility] which led to open heart surgery on 03/10/2017 at which time he received a ZARAGOZA to the LAD and an SVG to the PDA He had a carotid artery duplex study performed on 11/01/2015 at [facility] Interpretation Summary Mild (<50%) stenosis right extracranial internal carotid. Moderate (50-69%) stenosis left extracranial internal carotid. Flow within the right vertebral artery is antegrade. Flow within the left vertebral artery is bidirectional, consistent with subclavian steal phenomenon. Assessment AND Plan 1. Atherosclerosis of [place] coronary artery of [place] heart without angina pectoris I25.10 CABG x2- [...] need alteration in his antihypertensive therapy. 8. halfway current use of anticoagulant Z79.01 Plan He [...] Code Off vis,est,level 3 Diagnoses Atherosclerosis of [place] coronary artery of [place] heart without angina pectoris I25.10 [place] vs. transplanted heart: [place] heart Status post insertion of drug-eluting stent into right coronary artery for coronary artery disease Z95.5 Postsurgical aortocoronary bypass status Z95.1 Bilateral carotid artery stenosis I65.23 Laterality: bilateral Atrial fibrillation and flutter I48.91; I48.92 Hyperlipidemia, unspecified hyperlipidemia type E78.5 Hyperlipidemia type: unspecified Essential hypertension I10 Hypertension type: essential hypertension halfway current use of anticoagulant Z79.01 Coding Level of Care Code Off vis,est,level 3 Diagnoses Atherosclerosis of [place] coronary artery of [place] heart without angina pectoris I25.10 [place] vs. transplanted heart: [place] heart Status post insertion of drug-eluting stent into right coronary artery for coronary artery disease Z95.5 Postsurgical aortocoronary bypass status Z95.1 Bilateral carotid artery stenosis I65.23 Laterality: bilateral Atrial fibrillation and flutter I48.91; I48.92 Hyperlipidemia, unspecified hyperlipidemia type E78.5 Hyperlipidemia type: unspecified Essential hypertension I10 Hypertension type: essential hypertension director long term care current use of anticoagulant Z79.01 04/06/18 1507 <Electronically signed by Brooks Borges MD> Date Brooks Borges MD Cosigner Signature: Date (if applicable) CC: Rosa Maria Santacruz MD PROTIME W/INR Collected: 03/24/2018 Status: F Source: [place] FINGERSTICK 10:29 AM [facility] [place] TYPE CODE TESTS RESULT OUT OF REFERENCE UNITS RANGE LAB L9200.1001 11.9-14.4 SEC High PROTIME ISTAT 40.4 Result Comment: Reference Range 11.9 - 14.4 LAB L9200.2000 High alert INR ISTAT 3.60 Result Comment: Critical Value > 3.5 Performed By: #### L9200.0000 #### [facility] Point of Care [address] [place], [place] [address] PROTHROMBIN TIME W/INR Collected: 03/24/2018 Status: F Source: [place] 10:23 AM [facility] [place] [facility] Order Comment: Result obtained is for confirmation testing of Fingerstick PT/INR Specimen # [id number] . 03/24/18 1043 VSICK THIS CONFIRMATION SPECIMEN RESULT IS FROM VENOUS BLOOD. TYPE CODE TESTS RESULT OUT OF RANGE REFERENCE UNITS LAB L300.4150 11.7-14.9 SECONDS High PROTIME 33.8 LAB L300.4200 Normal INR 3.3 Performed By: #### L300.3900 #### [facility] [address] [place], [address] ABD AORTIC/IVC DUPLEX Observed: 03/04/2018 Status: F Source: [place] SCAN 8:01 AM [facility] [place] [facility] Cardiovascular Services [address] [place] [address] Abd Aortic/IVC Duplex scan 02/27/18802 MR#: [id number] Acct: [id number] Name: AMAURY NOGUERA Rep #: [id number] : 1940 77 From: Singh Khanna MD Attending Dr: Singh Khanna MD Status: REG CLI Ordering Dr: Singh Khanna MD Date: 02/27/18 Location: [facility] Sex: M C Admitted: Reason For Study: Mesenteric stenosis Aorta Measurements Prox Aorta - 79.3 cm/s Mid Aorta -139.0 cm/s Dist Aorta - 103.0 cm/s Prox SMA - 438.0 cm/s Mid SMA - 252.0 cm/s Dist SMA - 151.0 cm/s Celiac artery - 409.0 cm/s Hepatic artery - 260.0 cm/s Splenic artery - 180.0 cm/s. Procedure Aorta IVC Iliac vasculature or bypass grafts 25684. Exam performed in department. Interpretation Summary 1. 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 2. SMA with over 60% stenosis. Ordering Physician: Singh Khanna Referring Physician: Singh Khanna Performed By: Jayne Dugan RVT 03/04/18799 Date Singh Khanna MD CC: Rosa Maria Santacruz MD; Singh Khanna MD Date Dictated: 02/27/18802 Date Transcribed: 03/04/18 08 Platform Power Technician: Signed PROTIME W/INR Collected: 02/25/2018 Status: F Source: [place] FINGERSTICK 11:06 AM [facility] [place] TYPE CODE TESTS RESULT OUT OF REFERENCE UNITS RANGE LAB L9200.1001 11.9-14.4 SEC High PROTIME ISTAT 31.9 Result Comment: Reference Range 11.9 - 14.4 LAB L9200.2000 Normal INR ISTAT 2.80 Result Comment: Critical Value > 3.5 Performed By: #### L9200.0000 #### [facility] Point of Care [address] [place], [place] [address] PROTHROMBIN TIME W/INR Collected: 01/23/2018 Status: F Source: [place] 9:55 AM [facility] [place] TYPE CODE TESTS RESULT OUT OF RANGE REFERENCE UNITS LAB L300.4150 11.7-14.9 SECONDS High PROTIME 30.2 LAB L300.4200 Normal INR 2.9 Performed By: #### L300.3900 #### [facility] [address] [place], [place], [address] CBC W/DIFF, AUTOMATED Collected: 01/23/2018 Status: F Source: [place] 9:55 AM [facility] [place] [facility] TYPE CODE TESTS RESULT OUT OF [...] Lymph 0.69 Performed By: #### L100.0100 #### [facility] [address] [place], [address] PROTIME W/INR Collected: 12/18/2017 Status: F Source: [place] FINGERSTICK 3:17 PM [facility] [place] [facility] TYPE CODE TESTS RESULT OUT OF REFERENCE UNITS RANGE LAB L9200.1001 11.9-14.4 SEC High PROTIME ISTAT 24.5 Result Comment: Reference Range 11.9 - 14.4 LAB L9200.2000 Normal INR ISTAT 2.10 Result Comment: Critical Value > 3.5 Performed By: #### L9200.0000 #### [facility] Point of Care [address] [place] [address] DOWNTIME REPORT Observed: 12/18/2017 Status: F Source: [place] 12:27 PM [facility] [place] [facility] [facility] Medical Records Department [address] [place] [address] Downtime Report MR#: [id number] Acct: [id number] Name: AMAURY NOGUERA Rep #: [id number] : 1940 77 From: Obed Cooper PCP: Rosa Maria Santacruz MD Status: REG RCR This patient was seen during an EMR downtime December 01, 2017 - December 08, 2017. This patient may have a combination of paper and electronic documentation or all paper documentation. All documentation is viewable within the e-chart portion of [facility] for each patient visit. LIVER PROFILE Collected: 12/08/2017 Status: F Source: [place] 8:38 AM [facility] [place] [facility] Order Comment: Order Date: 05/15/17 Order Info: [id number] - *Hepatic Function Panel Order Info: [id number] - *Lipid Profile CC PCP Comments: 12 [...] BILI 0.14 Performed By: #### L500.3400 #### [facility] [place], [address] LIPID PROFILE Collected: 12/08/2017 Status: F Source: [place] 8:38 AM [facility] [place] [facility] Order Comment: Order Date: 05/15/17 Order Info: [id number] - *Hepatic Function Panel Order Info: [id number] - *Lipid Profile CC PCP Comments: 12 [...] VLDL 19 Performed By: #### L500.4100 #### [facility] [address] [facility] [place], [address] PROTHROMBIN TIME W/INR Collected: 12/08/2017 Status: F Source: [place] 8:38 AM [facility] [place] [facility] TYPE CODE TESTS RESULT OUT OF REFERENCE UNITS RANGE LAB L300.4150 11.7-14.9 SECONDS High PROTIME 40.5 LAB L300.4200 High alert INR 4.2 Result Comment: CRITICAL VALUE VERIFIED. CALLED TO PHYLLIS VIRGEN 12/08/17 1044 Cam Landaverde. RESULTS READ BACK BY SAME. Performed By: #### L300.3900 #### [facility] [place], [address] PROTIME W/INR Collected: 11/14/2017 Status: F Source: [place] FINGERSTICK 10:30 AM [facility] [place] [facility] TYPE CODE TESTS RESULT OUT OF REFERENCE UNITS RANGE LAB L9200.1001 11.9-14.4 SEC High PROTIME ISTAT 26.5 Result Comment: Reference Range 11.9 - 14.4 LAB L9200.2000 Normal INR ISTAT 2.30 Result Comment: Critical Value > 3.5 Performed By: #### L9200.0000 #### [facility] Point of Care [address] [facility] [place] [address] CBC W/DIFF, AUTOMATED Collected: 10/22/2017 Status: F Source: [place] 2:17 PM [facility] [place] [facility] TYPE CODE TESTS RESULT OUT OF [...] Lymph 0.70 Performed By: #### L100.0100 #### [facility] [address] [place], [place], [address] PROTHROMBIN TIME W/INR Collected: 10/22/2017 Status: F Source: [place] 2:17 PM [facility] [place] [facility] TYPE CODE TESTS RESULT OUT OF RANGE REFERENCE UNITS LAB L300.4150 11.7-14.9 SECONDS High PROTIME 21.0 LAB L300.4200 Normal INR 1.8 Performed By: #### L300.3900 #### [facility] [address] [place], [address] PROTIME W/INR Collected: 10/07/2017 Status: F Source: [place] FINGER[place]ICK 2:13 PM [facility] [place] [facility] TYPE CODE TESTS RESULT OUT OF REFERENCE UNITS RANGE LAB L9200.1001 11.9-14.4 SEC High PROTIME ISTAT 17.3 Result Comment: Reference Range 11.9 - 14.4 LAB L9200.2000 Normal INR ISTAT 1.50 Result Comment: Critical Value > 3.5 Performed By: #### L9200.0000 #### [facility] Laboratory Point of Care [address] [place] [address] PROTIME W/INR Collected: 09/15/2017 Status: F Source: TED FINGERSTICK 1:18 PM [facility] [place] TYPE CODE TESTS RESULT OUT OF REFERENCE UNITS RANGE LAB L9200.1001 11.9-14.4 SEC High PROTIME ISTAT 21.7 Result Comment: Reference Range 11.9 - 14.4 LAB L9200.2000 Normal INR ISTAT 1.90 Result Comment: Critical Value > 3.5 Performed By: #### L9200.0000 #### [facility] Point of Care [address] [place] [address] PROTIME W/INR Collected: 08/29/2017 Status: F Source: TED FINGERSTICK 1:24 PM [facility] [place] TYPE CODE TESTS RESULT OUT OF REFERENCE UNITS RANGE LAB L9200.1001 11.9-14.4 SEC High PROTIME ISTAT 37.0 Result Comment: Reference Range 11.9 - 14.4 LAB L9200.2000 Normal INR ISTAT 3.30 Result Comment: Critical Value > 3.5 Performed By: #### L9200.0000 #### [facility] Point of Care [address] [place] [address] ABD AORTIC/IVC DUPLEX Observed: 08/22/2017 Status: F Source: TED SCAN 2:39 PM [facility] [place] [facility] Cardiovascular Services [address] [place] [address] Abd Aortic/IVC Duplex scan 08/21/17 0902 MR#: [id number] Acct: [id number] Name: AMAURY NOGUERA Rep #: [id number] : 1940 77 From: Singh Khanna MD Attending Dr: Singh Khanna MD Status: REG CLI Ordering Dr: Singh Khanna MD Date: 08/21/17 Location: [facility] Sex: M C Admitted: Reason For Study: [...] Aorta IVC Iliac vasculature or bypass grafts 34316. Technically difficult due to bowel gas. Exam performed in department. Interpretation Summary 1. 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 2. Celiac appears normal flow. Ordering Physician: Singh Khanna Referring Physician: Singh Khanna Performed By: Jayne Dugan RVT 08/22/171437 Date Singh Khanna MD CC: Rosa Maria Santacruz MD; Singh Khanna MD Date Dictated: 08/21/17901 Date Transcribed: 08/22/171437 Platform Power Technician: Signed CAROTID DUPLEX Observed: 08/22/2017 Status: F Source: HANNACROIX ULTRASOUND 2:37 PM [facility] [place] [facility] Cardiovascular Services [facility] [place] [address] Carotid Duplex Ultrasound 08/21/1728 MR#: [id number] Acct: [id number] Name: AMAURY NOGUERA Rep #: [id number] : 1940 77 From: Singh Khanna MD Attending Dr: Singh Khanna MD Status: REG CLI Ordering Dr: Singh Khanna MD Date: 08/21/17 Location: [facility] Sex: M C Admitted: Reason For Study: [...] MD Date Dictated: 08/21/17927 Date Transcribed: 08/22/171436 Platform Power Technician: Signed PROTIME W/INR Collected: 08/01/2017 Status: F Source: TED FINGERSTICK 11:39 AM [facility] [place] TYPE CODE TESTS RESULT OUT OF REFERENCE UNITS RANGE LAB L9200.1001 11.9-14.4 SEC High PROTIME ISTAT 27.8 Result Comment: Reference Range 11.9 - 14.4 LAB L9200.2000 Normal INR ISTAT 2.40 Result Comment: Critical Value > 3.5 Performed By: #### L9200.0000 #### [facility] Point of Care [address] [place] [address] [place] [address] CARDIOLOGY VISIT Observed: 07/31/2017 Status: F Source: TDE REPORT 2:52 PM [facility] [place] [facility] [facility] [address] [place] [address] OFFICE VISIT Date of Service: 07/31/17 MR#: [id number] Acct: [id number] Name: AMAURY NOGUERA Calvin Rep #: [id number] : 1940 Provider: Brooks Borges MD Age/Sex: [...] a transthoracic echocardiogram in December 2016 at [facility]. The left ventricle had regional wall motion abnormalities with an LVEF of 65%, moderate left atrial enlargement, mild right atrial enlargement, mild to moderate mitral annular calcification extending onto the posterior mitral valve leaflet with mild focal mitral valve calcification, moderate MR, mild to moderate TR, trivial AK, and an estimated RV systolic pressure of [...] cardiac catheterization and PCI was performed at [facility] and [facility] in April 2009. At [...] PO BID tab 07/31/17 [History Confirmed 07/31/17] [facility] Medical History Carotid artery stenosis (Acute) Hyperlipidemia (Acute) Atherosclerotic heart disease of [place] coronary artery without angina pectoris (Chronic) Premature atrial contractions (Acute) Atrial fibrillation and flutter (Acute) halfway (current) use 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 (Acute) Status post [...] affect Assessment AND Plan 1. Atherosclerosis of [place] coronary artery of [place] heart without angina pectoris I25.10 CABG x2- [...] at [facility] prior to his CABG. 8. director long term care current use of anticoagulant Z79.01 Plan His [...] Code Off vis,est,level 3 Diagnoses Atherosclerosis of [place] coronary artery of [place] heart without angina pectoris I25.10 [place] vs. transplanted heart: [place] heart Status post insertion of drug-eluting stent into right coronary artery for coronary artery disease Z95.5 Postsurgical aortocoronary bypass status Z95.1 Atrial fibrillation and flutter I48.91; I48.92 Hyperlipidemia, unspecified hyperlipidemia type E78.5 Hyperlipidemia type: unspecified Essential hypertension I10 Hypertension type: essential hypertension Bilateral carotid artery stenosis I65.23 Laterality: bilateral director long term care current use of anticoagulant Z79.01 Coding Level of Care Code Off vis,est,level 3 Diagnoses Atherosclerosis of [place] coronary artery of [place] heart without angina pectoris I25.10 [place] vs. transplanted heart: [place] heart Status post insertion of drug-eluting stent into right coronary artery for coronary artery disease Z95.5 Postsurgical aortocoronary bypass status Z95.1 Atrial fibrillation and flutter I48.91; I48.92 Hyperlipidemia, unspecified hyperlipidemia type E78.5 Hyperlipidemia type: unspecified Essential hypertension I10 Hypertension type: essential hypertension Bilateral carotid artery stenosis I65.23 Laterality: bilateral halfway current use of anticoagulant Z79.01 07/31/17 1452 <Electronically signed by Brooks Borges MD> Date Brooks Borges MD Cosigner Signature: Date (if applicable) CC: Rosa Maria Santacruz MD ALLERGIES ALLERGIES DATE TYPE / CODE NAME / CODE REACTION SEVERITY SOURCE 04/06/2018 Drug lovastatin/F Rash Unknown [facility] Allergy/4160 [id number]( Hospital [address]338(SNOMED NORM) Repository CT) 04/06/2018 Drug amlodipine/F Swelling Unknown [facility] Allergy/4160 [id number]( Hospital 81829(SNOMED NORM) Repository CT) ENCOUNTERS ENCOUNTERS ADMIT/DISCHARGE ACCOUNT ADMITTING ENCOUNTER LOCATION SOURCE NUMBER CLASS 07/06/2018 [id number] Ambulatory [place] [address] [facility] ing:MTLAB Repository 06/16/2018 [id number] Ambulatory [place] [address] [facility] ing:LABSPEC Repository 06/10/2018 [id number] Ambulatory [place] [address] [facility] ing:MTLAB Repository 06/01/2018/ [id number] Ambulatory Ted [place] [address] [facility] ing:MTLAB Repository 05/06/2018/ [id number] Ambulatory [place] [address] [facility] ing:MTLAB Repository 04/15/2018/ [id number] Ambulatory [place] [address] [facility] ing:CLSP Repository 04/08/2018/ [id number] Ambulatory [place] [address] [facility] ing:MTLAB Repository 04/06/2018/ [id number] Ambulatory BMSBuilding:B [place] 8 5 [facility] Repository 03/24/2018/ [id number] Ambulatory [place] 8 8 [facility] ing:MTLAB Repository 02/27/2018 [id number] Ambulatory [place] 2 [facility] ing:CVS Repository 02/25/2018/ [id number] Ambulatory [place] 8 8 [facility] ing:MTLAB Repository 01/23/2018 [id number] Ambulatory [place] 4 [facility] ing:MTLAB Repository 12/18/2017/ [id number] Ambulatory [place] 8 4 [facility] ing:MTLAB Repository 11/14/2017/ [id number] [place]ulatory [place] 8 4 [facility] ing:MTLAB Repository 10/22/2017 [id number] Ambulatory [place] 2 [facility] ing:LAB.FUTUR Repository E 10/22/2017/ [id number] Ambulatory [place] 8 6 [facility] ing:MTLAB Repository 09/15/2017/ [id number] Ambulatory [place] 8 5 [facility] ing:MTLAB Repository 09/07/2017 [id number] Ambulatory [place] 4 [facility] ing:CR Repository 08/29/2017/ [id number] Ambulatory [place] 8 5 [facility] ing:MTLAB Repository 08/21/2017 [id number] Ambulatory [place] 4 [facility] ing:CVS Repository 08/20/2017/ [id number] Ambulatory [place] 8 2 [facility] ing:CR Repository 08/01/2017/ [id number] Ambulatory [place] 8 5 [facility] ing:MTLAB Repository 07/31/2017/ [id number] Ambulatory BMSBuilding:B [place] 8 1 [facility] Repository 07/30/2017 [id number] Ambulatory BMSBuilding:B [place] 6 [facility] Repository 07/30/2017/ [id number] Ambulatory Ted [place] [address] [facility] ing:CR Repository PAYERS PAYERS ENCOUNTER GUARANTOR PAYER SUBSCRIBER SOURCE 07/06/2018 AMAURY R Primary PANCHOENT R Ted [id number] E Insurance:MEDICARE HORNINGDOB: [facility] PART A [facility] [id number] Number: Repository [address]Gmr: 330 [id number] [phone] () Date:2018-06-01 07/06/2018 Secondary VINCENT R Ted Insurance:MUTUAL OF HORNINGDOB: [facility] Number: [id number] Hospital [id number] Repository Date:2256-74-83HXZIII [place], [place] [address]XL: 07/06/2018 Tertiary NOT GIVENUNK [place] Insurance:SELF PAY [facility] Hospital Number: Effective Repository Date:2018-06-29 06/16/2018 VINCENT R Primary VINCENT R [place] [id number] E Insurance:MEDICARE HORNINGDOB: [facility] [id number], [place] Number: Repository [address]Irz: 330 [id number] [phone] () Date:2018-06-16 06/16/2018 Secondary VINCENT R [place] Insurance:MUTUAL OF HORNINGDOB: [facility] Number: [id number] Hospital [id number] Repository Date:6833-15-24PELOTQ [place], [place] [address]ND: 06/16/2018 Tertiary NOT GIVENUNK [place] Insurance:SELF PAY [facility] [place] Number: Effective Repository Date:2018-06-16 06/10/2018 PANCHOENT R Primary VINCENT R Ted [id number] E Insurance:MEDICARE HORNINGDOB: [facility] PART A [facility] [id number], [place] Number: Repository [address]Bgt: 330 [id number] [phone] () Date:2018-06-10 06/10/2018 Secondary VINCENT R Ted Insurance:MUTUAL OF HORNINGDOB: [facility] Number: [id number] Hospital [id number] Repository Date:0954-55-55NVXUHU [place], [place] [address]WX: 06/10/2018 Tertiary NOT GIVENUNK Ted Insurance:SELF PAY [facility] Hospital Number: Effective Repository Date:2018-06-10 06/01/2018 VINCENT R Primary VINCENT R [place] [id number] E Insurance:MEDICARE HORNINGDOB: [facility] PART A [facility] [id number], [place] Number: Repository [address]Vaa: ([phone] [id number] [phone] () Date:2018-06-01 06/01/2018 Secondary VINCENT R [place] Insurance:MUTUAL OF HORNINGDOB: [facility] Number: [id number] Hospital [id number] Repository Date:9344-00-22DPMOTA [place], [place] [address]LM: 06/01/2018 Tertiary NOT GIVENUNK [place] Insurance:SELF PAY [facility] [place] Number: Effective Repository Date:2018-06-01 05/06/2018 VINCENT R Primary VINCENT R Ted [id number] E Insurance:MEDICARE HORNINGDOB: [facility] PART A [facility] [id number], [place] Number: Repository [address]Qvc: [phone] [id number] [phone] () Date:2006-06-30 05/06/2018 Secondary VINCENT R Ted Insurance:MUTUAL OF HORNINGDOB: [facility] Number: [id number] Hospital [id number] Repository Date:3942-33-87IQNXCM [place], [place] [address]XJ: 05/06/2018 Tertiary NOT GIVENUNK [place] Insurance:SELF PAY [facility] Hospital Number: Effective Repository Date:2018-04-30 04/15/2018 VINCENT R Primary VINCENT R [place] [id number] E Insurance:MEDICARE HORNINGDOB: [facility] PART A [facility] [id number], [place] Number: Repository [address]Bev: 330 [id number] [phone] () Date:2018-03-06 04/15/2018 Secondary VINCENT R [place] Insurance:MUTUAL OF HORNINGDOB: [facility] Number: [id number] Hospital [id number] Repository Date:5042-42-55YIFMVU OF [facility], [place] [address]WR: 04/15/2018 Tertiary NOT GIVENUNK [place] Insurance:SELF PAY [facility] [place] Number: Effective Repository Date:2018-03-06 04/08/2018 VINCENT R Primary VINCENT R [place] [id number] E Insurance:MEDICARE HORNINGDOB: [id number] [place] Number[facility] Repository [address]Kfe: 330 [id number] [phone] () Date:2006-06-30 04/08/2018 Secondary VINCENT R Ted Insurance:MUTUAL OF HORNINGDOB: [facility] Number: [id number] Hospital [id number] Repository Date:0046-45-14MCCHYT OF [facility], [place] [address]BR: 04/08/2018 Tertiary NOT GIVENUNK [place] Insurance:SELF PAY [facility] Hospital Number: Effective Repository Date:2018-03-31 04/06/2018 VINCENT R Primary VINCENT R Ted [id number] E Insurance:MEDICARE HORNINGDOB: [facility] PART A [facility] [id number], [place] Number: Repository [address]Tpb: 330 [id number] [phone] () Date:2017-07-31 04/06/2018 Secondary VINCENT R Ted Insurance:MUTUAL OF HORNINGDOB: [facility] Number: [id number] Hospital [id number] Repository Date:4635-76-41KRDYSVBROOKLYN, [place] [address]TB: 04/06/2018 Tertiary NOT GIVENUNK [place] Insurance:SELF PAY [facility] [place] Number: Effective Repository Date:2018-04-06 03/24/2018 VINCENT R Primary VINCENT R [place] [id number] E Insurance:MEDICARE HORNINGDOB: [facility] PART A [facility] [id number], [place] Number: Repository [address]Hzm: ([phone] [id number] [phone] () Date:2006-06-30 03/24/2018 Secondary VINCENT R Ted Insurance:MUTUAL OF HORNINGDOB: [facility] Number: [id number] Hospital [id number] Repository Date:9819-64-79XTEMOLBROOKLYN, [place] [address]OV: 03/24/2018 Tertiary NOT GIVENUNK Ted Insurance:SELF PAY [facility] Hospital Number: Effective Repository Date:2018-03-04 02/27/2018 PANCHOENT R Primary VINCENT R Ted [id number] E Insurance:MEDICARE HORNINGDOB: [facility] PART A [facility] [id number], [place] Number: Repository [address]Hcp: [phone] [id number] [phone] () Date:2018-02-24 02/27/2018 Secondary VINCENT R [place] Insurance:MUTUAL OF HORNINGDOB: [facility] Number: [id number] Hospital [id number] Repository Date:7872-40-49YDJKPZBROOKLYN, [place] [address]HV: 02/27/2018 Tertiary NOT GIVENUNK Ted Insurance:SELF PAY [facility] [place] Number: Effective Repository Date:2018-02-24 02/25/2018 VINCENT R Primary VINCENT R [place] [id number] E Insurance:MEDICARE HORNINGDOB: Community [place] PART A [facility] [id number], [place] Number: Repository [address]Sbq: 330 [id number] [phone] () Date:2006-06-30 02/25/2018 Secondary VINCENT R [place] Insurance:MUTUAL OF HORNINGDOB: [facility] Number: [id number] Hospital [id number] Repository Date:0971-80-10VNQGGDBROOKLYN, [place] [address]AI: 02/25/2018 Tertiary NOT GIVENUNK [place] Insurance:SELF PAY [facility] Hospital Number: Effective Repository Date:2017-12-26 01/23/2018 VINCENT R Primary VINCENT R Ted [id number] E Insurance:MEDICARE HORNINGDOB: [facility] PART A [facility] [id number], [place] Number: Repository [address]Fsj: 330 [id number] [phone] () Date:2018-01-23 01/23/2018 Secondary VINCENT R [place] Insurance:MUTUAL OF HORNINGDOB: [facility] Number: [id number] Hospital [id number] Repository Date:9347-98-71POQIWX OF [place], [place] [address]KO: 01/23/2018 Tertiary NOT GIVENUNK Ted Insurance:SELF PAY [facility] Hospital Number: Effective Repository Date:2018-01-23 12/18/2017 VINCENT R Primary VINCENT R Ted [id number] E Insurance:MEDICARE HORNINGDOB: Community [place] PART A [facility] [id number], [place] Number: Repository [address]Yop: [phone] [id number] [phone] () Date:2006-06-30 12/18/2017 Secondary VINCENT R [place] Insurance:MUTUAL OF HORNINGDOB: [facility] Number: [id number] Hospital [id number] Repository Date:7563-48-12TEUBKGBROOKLYN, [place] [address]GU: 12/18/2017 Tertiary NOT GIVENUNK [place] Insurance:[facility] Effective Repository Date:2017-11-27 11/14/2017 VINCENT R Primary VINCENT R Ted [id number] E Insurance:MEDICARE HORNINGDOB: [facility] [id number], [place] Number: Repository [address]Kqm: [phone]) [id number] [phone] () Date:2006-06-30 11/14/2017 Secondary VINCENT R Ted Insurance:MUTUAL OF HORNINGDOB: [facility] Number: [id number] Hospital [id number] Repository Date:0759-64-89VGQAFA OF [facility], [place] [address]UG: 11/14/2017 Tertiary NOT GIVENUNK [place] Insurance:SELF [facility]Y [facility] Number: Effective Repository Date:2017-10-28 10/22/2017 VINCENT R Primary VINCENT R [place] [id number] E Insurance:MEDICARE HORNINGDOB: [facility] [place] PART A [facility] [id number] [place] Number: Repository [address]Hps: [phone] [id number] [phone] () Date:2017-10-08 10/22/2017 Secondary VINCENT R Ted Insurance:MUTUAL OF HORNINGDOB: [facility] Number: [id number] Hospital [id number] Repository Date:1626-32-07FTQAAK OF [place], [place] [address]OU: 10/22/2017 Tertiary NOT GIVENUNK [place] Insurance:SELF PAY [facility] Hospital Number: Effective Repository Date:2017-10-08 10/22/2017 VINCENT R Primary VINCENT R Ted [id number] E Insurance:MEDICARE HORNINGDOB: Community [place] PART A [facility] [id number], [place] Number: Repository [address]Dpm: [phone] [id number] [phone] () Date:2006-06-30 10/22/2017 Secondary VINCENT R Ted Insurance:MUTUAL OF HORNINGDOB: [facility] Number: [id number] Hospital [id number] Repository Date:6493-02-65XACBZOBURLINGTON, [place] [address]YD: 10/22/2017 Tertiary NOT GIVENUNK [place] Insurance:SELF PAY [facility] Hospital Number: Effective Repository Date:2017-09-29 09/15/2017 VINCENT R Primary VINCENT R [place] [id number] E Insurance:MEDICARE HORNINGDOB: [facility] PART A [facility] [id number], [place] Number: Repository [address]Ncb: [phone]) [id number] [phone] () Date:2017-09-15 09/15/2017 Secondary VINCENT R Ted Insurance:MUTUAL OF HORNINGDOB: [facility] Number: [id number] Hospital [id number] Repository Date:2078-41-75CUUPFZBROOKLYN, [place] [address]II: 09/15/2017 Tertiary NOT GIVENUNK [place] Insurance:SELF PAY [facility] Hospital Number: Effective Repository Date:2017-09-15 09/07/2017 VINCENT R Primary VINCENT R Ted [id number] E Insurance:MEDICARE HORNINGDOB: [facility] PART A [facility] [id number], [place] Number: Repository [address]Oop: [phone] [id number] [phone] () Date:2006-06-30 09/07/2017 Secondary VINCENT R Ted Insurance:MUTUAL OF HORNINGDOB: [facility] Number: [id number] Hospital [id number] Repository Date:0572-21-09QREGYXBROOKLYN, [place] [address]OL: 09/07/2017 Tertiary NOT GIVENUNK [place] Insurance:SELF PAY [facility] Hospital Number: Effective Repository Date:2017-08-28 08/29/2017 VINCENT R Primary VINCENT R [place] [id number] E Insurance:MEDICARE HORNINGDOB: Community [place] PART A [facility] [id number], [place] Number: Repository [address]Yjz: 330 [id number] [phone] () Date:2006-06-30 08/29/2017 Secondary VINCENT R [place] Insurance:MUTUAL OF HORNINGDOB: [facility] Number: [id number] Hospital [id number] Repository Date:8861-28-11WGBNVEBROOKLYN, [place] [address]IY: 08/29/2017 Tertiary NOT GIVENUNK [place] Insurance:SELF PAY [facility] [place] Number: Effective Repository Date:2017-08-28 08/21/2017 VINCENT R Primary VINCENT R Ted [id number] E Insurance:MEDICARE HORNINGDOB: [facility] PART A [facility] [id number], [place] Number: Repository [address]Tzt: 330 [id number] [phone] () Date:2017-08-04 08/21/2017 Secondary VINCENT R Ted Insurance:MUTUAL OF HORNINGDOB: [facility] Number: [id number] Hospital [id number] Repository Date:7570-99-20KARPSLBROOKLYN, [place] [address]BP: 08/21/2017 Tertiary NOT GIVENUNK [place] Insurance:SELF PAY [facility] Hospital Number: Effective Repository Date:2017-08-04 08/20/2017 VINCENT R Primary VINCENT R [place] [id number] E Insurance:MEDICARE HORNINGDOB: [facility] PART A [facility] [id number], [place] Number: Repository [address]Skw: 330 [id number] [phone] () Date:2006-06-30 08/20/2017 Secondary VINCENT R [place] Insurance:MUTUAL OF HORNINGDOB: [facility] Number: [id number] Hospital [id number] Repository Date:1174-27-08BWXOMRSAINT FRANCIS [facility] [place] [address]CT: 08/20/2017 Tertiary NOT GIVENUNK Etd Insurance:SELF PAY [facility] [place] Number: Effective Repository Date:2017-07-31 08/01/2017 VINCENT R Primary VINCENT R Ted [id number] E Insurance:MEDICARE HORNINGDOB: Community [place] PART A [facility] [id number], [place] Number: Repository [address]Mav: [phone] [id number] [phone] () Date:2006-06-30 08/01/2017 Secondary VINCENT R [place] Insurance:MUTUAL OF HORNINGDOB: [facility] Number: [id number] [facility] [id number] Repository Date:5777-25-79ZEZONJBURLINGTON, [place] [address]HC: 08/01/2017 Tertiary NOT GIVENUNK Ted Insurance:SELF PAY [facility] Hospital Number: Effective Repository Date:2017-06-01 07/31/2017 VINCENT R Primary VINCENT R Ted [id number] Insurance:MEDICARE HORNINGDOB: [facility] A [facility] [id number] Number: Repository [id number]: [phone] [id number] [phone] () Date:2017-06-07 07/31/2017 Secondary VINCENT R Ted Insurance:MUTUAL OF HORNINGDOB: [facility] Number: [id number] [facility] [id number] Repository Date:9127-79-63CEELIWBURLINGTON, [place] [address]BU: 07/31/2017 Tertiary NOT GIVENUNK Ted Insurance:SELF PAY [facility] ([place], [place]) Number: Effective Repository Date:2017-06-07 07/30/2017 Vincent R Primary Vincent R [place] [id number] Insurance:MEDICARE HorningDOB: [facility] [place] [facility] [id number] Number: Repository [id number]: [phone] [id number] [phone] ([phone]) Date:2017-07-30 07/30/2017 Secondary Vincent R Ted Insurance:MUTUAL OF HorningDOB: [facility] Number: [id number] Hospital [id number] Repository Date:4429-87-05PEEIXM [place], [place] [address]DT: 07/30/2017 Tertiary NOT GIVENUNK [place] Insurance:SELF PAY [facility] ([place], [place]) Number: Effective Repository Date:2017-07-30 07/30/2017 Vincent R Primary Vincent R Ted [id number] Insurance:MEDICARE HorningDOB: [facility] [facility] [id number] Number: Repository [id number]: [phone] [id number] [phone] () Date:2006-06-30 07/30/2017 Secondary Vincent R Ted Insurance:MUTUAL OF HorningDOB: [facility] Number: [id number] Hospital [id number] Repository Date:8971-56-66TFOBCF OF [facility], [place] [address]GY: 07/30/2017 Tertiary NOT GIVENUNK Ted Insurance:SELF PAY [facility] ([place], [place]) Number: Effective Repository Date:2017-06-30
== END ==
PROVIDERS: Family Provider Family Medicine; PCP Family Medicine; Referring Provider Internal Medicine Gastroenterology; Visit Provider Internal Medicine Gastroenterology
DX: Z87.19 Personal history of other diseases of the digestive system (principal)
CPT/HCPCS: 88305

== ENCOUNTER 2018-07-06 11:10 | Outpatient (RCR) | payer MEDICARE, OTHER, SELFPAY ==
[2018-04-30 16:54] VITALS: BMI 25.8
[2018-07-06 11:30] LABS: Prothrombin Time Fingerstick 28.7 SEC (11.9-14.4)
== END 2018-07-06 13:00 | disposition home or self-care (01) ==
LOC: MTLAB 11:10
PROVIDERS: Family Provider Family Medicine; PCP Family Medicine; Referring Provider Internal Medicine Cardiovascular Disease; Visit Provider Internal Medicine Cardiovascular Disease
DX: I48.91 Unspecified atrial fibrillation (principal); I48.92 Unspecified atrial flutter; Z79.01 Long term (current) use 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
CPT/HCPCS: 36416; 85610

== ENCOUNTER 2018-08-21 13:52 | Outpatient (RCR) | payer MEDICARE, OTHER, SELFPAY ==
[2018-04-30 16:54] VITALS: BMI 25.8
[2018-08-07 10:47] LABS: Prothrombin Time Fingerstick 38.1 SEC (11.9-14.4)
[2018-08-21 14:00] LABS: Prothrombin Time Fingerstick 27.5 SEC (11.9-14.4)
== END 2018-08-27 14:53 | disposition home or self-care (01) ==
LOC: MTLAB 13:52
PROVIDERS: Family Provider Family Medicine; PCP Family Medicine; Referring Provider Internal Medicine Cardiovascular Disease; Visit Provider Internal Medicine Cardiovascular Disease
DX: I48.91 Unspecified atrial fibrillation (principal); I48.92 Unspecified atrial flutter; Z79.01 Long term (current) use 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
CPT/HCPCS: 36416; 85610

== ENCOUNTER → 2018-09-18 13:28 | Outpatient (CLI) | payer MEDICARE, OTHER, SELFPAY ==
[2018-04-30 16:54] VITALS: BMI 25.8
[2018-09-18 15:43] LABS: Absolute Lymphocyte Count 0.66 X10^3/ul (0.83-4.51); Absolute Neutrophil Count 3.1 X10^3/uL (2.0-7.7); Basophil# 0.02 X10^3/uL; Basophil% 0.5 % (0-1); Eosinophil# 0.05 X10^3/uL; Eosinophils% 1.2 % (0-5); Hematocrit 33.7 % (40-54); Hemoglobin 11.2 g/dl (13.0-16.5); Lymphocyte # 0.66 X10^3/ul (4.0); Lymphocyte % 15.5 % (19-41); Mean Corp Hgb Conc 33.2 g/gl (32-36); Mean Corpuscular Hgb 36.7 pg (27.0-32.0); Mean Corpuscular Volume 110.5 fL (80-94); Mean Platelet Vol. 10.2 fl (6.2-12.0); Monocyte# 0.38 X10^3/uL; Monocyte% 8.9 % (0-10); Neutrophil # 3.14 X10^3/uL (2.7-7.7); Neutrophil % 73.7 % (47-70); Platelet Count 113 K/mm3 (150-450); RBC Distribution Width CV 13.8 % (11.6-14.6); RBC Distribution Width SD 55.5 fl (35.1-43.9); Red Blood Count 3.05 M/mm3 (4.6-6.2); White Blood Count 4.3 K/mm3 (4.4-11.0)
[2018-09-18 15:50] LABS: POSITIVE COUNT NO; POSITIVE DIFFERENTIAL NO; POSITIVE MORPHOLOGY NO
[2018-09-18 16:15] LABS: International Normalized Ratio 1.6; Prothrombin Time (Protime)PT. 18.7 SECONDS (11.7-14.9)
== END ==
PROVIDERS: Family Provider Family Medicine; PCP Family Medicine; Referring Provider Internal Medicine Cardiovascular Disease; Visit Provider Internal Medicine Cardiovascular Disease
DX: I48.91 Unspecified atrial fibrillation (principal); K51.90 Ulcerative colitis, unspecified, without complications; Z79.01 Long term (current) use 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
CPT/HCPCS: 36415; 85025; 85610

== ENCOUNTER → 2018-10-08 | Outpatient (CLI) | payer MEDICARE, OTHER, SELFPAY ==
[2018-10-05 13:46] VITALS: BMI 26.3
[2018-10-08 10:09] LABS: AST(SGOT) 28 U/L (15-37); Alanine Aminotransfer ALT/SGPT 23 U/L (16-61); Alkaline Phosphatase 85 U/L (45-117); Bilirubin, Direct 0.15 mg/dL (0.00-0.30); Cholesterol 192 mg/dL (200); Globulin 2.6 g/dL (2.2-4.2); High Density Lipoprotein 85 mg/dL; Protein, Total 6.6 g/dL (6.4-8.2); Triglycerides 137 mg/dL; Very Low Density Lipoprotein 27 mg/dL (5-40)
== END | disposition home or self-care (01) ==
LOC: MTLAB 07:37
PROVIDERS: Family Provider Family Medicine; PCP Family Medicine; Referring Provider Nurse Practitioner Family; Visit Provider Nurse Practitioner Family
DX: I65.29 Occlusion and stenosis of unspecified carotid artery (principal); I25.10 Atherosclerotic heart disease of native coronary artery without angina pectoris; E78.5 Hyperlipidemia, unspecified
CPT/HCPCS: 36415; 80061; 80076

== ENCOUNTER 2018-10-20 13:11 | Outpatient (RCR) | payer MEDICARE, OTHER, SELFPAY ==
[2018-04-30 16:54] VITALS: BMI 25.8
[2018-10-05 13:46] VITALS: BMI 26.3
[2018-10-20 13:40] LABS: Prothrombin Time Fingerstick 19.1 SEC (11.9-14.4)
== END 2018-10-27 16:00 | disposition home or self-care (01) ==
LOC: MTLAB 13:11
PROVIDERS: Family Provider Family Medicine; PCP Family Medicine; Referring Provider Internal Medicine Cardiovascular Disease; Visit Provider Internal Medicine Cardiovascular Disease
DX: I48.91 Unspecified atrial fibrillation (principal); I48.92 Unspecified atrial flutter; Z79.01 Long term (current) use 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
CPT/HCPCS: 36416; 85610

== ENCOUNTER 2018-11-13 10:26 | Outpatient (RCR) | payer MEDICARE, OTHER, SELFPAY ==
[2018-10-05 13:46] VITALS: BMI 26.3
[2018-11-04 10:45] LABS: Prothrombin Time Fingerstick 16.1 SEC (11.9-14.4)
== END 2018-11-13 12:00 | disposition home or self-care (01) ==
LOC: MTLAB 10:26
PROVIDERS: Family Provider Family Medicine; PCP Family Medicine; Referring Provider Internal Medicine Cardiovascular Disease; Visit Provider Internal Medicine Cardiovascular Disease
DX: I48.91 Unspecified atrial fibrillation (principal); I48.92 Unspecified atrial flutter; Z79.01 Long term (current) use 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
CPT/HCPCS: 36416; 85610

== ENCOUNTER 2018-12-04 13:40 | Outpatient (RCR) | payer MEDICARE, OTHER, SELFPAY ==
[2018-10-05 13:46] VITALS: BMI 26.3
[2018-12-04 13:56] LABS: Prothrombin Time Fingerstick 28.9 SEC (11.9-14.4)
== END 2018-12-04 14:00 | disposition home or self-care (01) ==
LOC: MTLAB 13:40
PROVIDERS: Family Provider Family Medicine; PCP Family Medicine; Referring Provider Internal Medicine Cardiovascular Disease; Visit Provider Internal Medicine Cardiovascular Disease
DX: I48.91 Unspecified atrial fibrillation (principal); I48.92 Unspecified atrial flutter; Z79.01 Long term (current) use 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
CPT/HCPCS: 36416; 85610

== ENCOUNTER → 2018-12-04 | Outpatient (CLI) | payer MEDICARE, OTHER, SELFPAY ==
[2018-10-05 13:46] VITALS: BMI 26.3
--- NOTE | 2018-12-04 13:01 | CDU_ITS ---
Reason For Study: Bilateral carotid stenosis Rt. Velocities/BP Lt. Velocities/BP Prox CCA 95.5/15.2 cm/sec. Prox CCA 95.5/18.8 cm/sec. Mid CCA 104.7/18.8 cm/sec. Mid CCA 95.5/13.3 cm/sec. Dist CCA 88.2/18.8 cm/sec. Dist CCA 80.9/15.2 cm/sec. Prox ICA 172.2/42.6 cm/sec. Prox ICA 220.7/46.2 cm/sec. Mid ICA 113.8/24.3 cm/sec. Mid ICA 175.5/23.6 cm/sec. Dist ICA 97.4/31.6 cm/sec. Dist ICA 148.4/31.9 cm/sec. Rt. ICA/CCA = 1.8. Lt. ICA/CCA = 2.3. Prox ECA 122.9/6 cm/sec. Prox ECA 481.1/42.1 cm/sec. Rt. Vert. 43.7/11.6 cm/sec. Right Extracranial There is heterogeneous, irregular atherosclerotic plaque noted in the right common carotid artery. There is heterogeneous, irregular atherosclerotic plaque noted in the right internal carotid artery. There is intimal thickening but no significant atherosclerotic plaque noted in the right external carotid artery. Antegrade flow is noted in the right vertebral artery. Left Extracranial There is homogeneous, smooth atherosclerotic plaque noted in the left common carotid artery. There is heterogeneous, irregular atherosclerotic plaque noted in the left internal carotid artery. There is heterogeneous, irregular atherosclerotic plaque noted in the left external carotid artery. Flow is retrograde in the left vertebral artery. Procedure Carotid Duplex [id number]. Exam performed in department. Interpretation Summary Moderate (50-69%) stenosis right extracranial internal carotid. Moderate (50-69%) stenosis left extracranial internal carotid. Flow within the right verterbral artery is antegrade. Flow within the left verterbral artery is retrograde, consistent with a subclavian steal phenomenon. Ordering Physician: Singh Khanna Referring Physician: Rosa Maria Santacruz M.D. Performed By: Fe Turner RVT
== END | disposition home or self-care (01) ==
LOC: CVS 12:59
PROVIDERS: Family Provider Family Medicine; PCP Family Medicine; Referring Provider Surgery Vascular Surgery; Visit Provider Surgery Vascular Surgery
DX: I65.23 Occlusion and stenosis of bilateral carotid arteries (principal); I77.1 Stricture of artery; E78.00 Pure hypercholesterolemia, unspecified; K51.90 Ulcerative colitis, unspecified, without complications; D64.9 Anemia, unspecified; I11.9 Hypertensive heart disease without heart failure
CPT/HCPCS: 36416; 85610; 93880

== ENCOUNTER 2019-01-20 14:46 | Outpatient (RCR) | payer MEDICARE, OTHER, SELFPAY ==
[2018-10-05 13:46] VITALS: BMI 26.3
[2019-01-04 13:51] LABS: Prothrombin Time Fingerstick 37.6 SEC (11.9-14.4)
[2019-01-20 14:56] LABS: Prothrombin Time Fingerstick 33.1 SEC (11.9-14.4)
== END 2019-01-27 06:39 | disposition home or self-care (01) ==
LOC: MTLAB 14:46
PROVIDERS: Family Provider Family Medicine; PCP Family Medicine; Referring Provider Internal Medicine Cardiovascular Disease; Visit Provider Internal Medicine Cardiovascular Disease
DX: I48.91 Unspecified atrial fibrillation (principal); I48.92 Unspecified atrial flutter; Z79.01 Long term (current) use 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
CPT/HCPCS: 36416; 85610

== ENCOUNTER 2019-02-19 15:12 | Outpatient (RCR) | payer MEDICARE, OTHER, SELFPAY ==
[2018-10-05 13:46] VITALS: BMI 26.3
[2019-02-19 17:42] LABS: Prothrombin Time Fingerstick 23.9 SEC (11.9-14.4)
== END 2019-02-19 16:12 | disposition home or self-care (01) ==
LOC: MTLAB 15:12
PROVIDERS: Family Provider Family Medicine; PCP Family Medicine; Referring Provider Internal Medicine Cardiovascular Disease; Visit Provider Internal Medicine Cardiovascular Disease
DX: I48.91 Unspecified atrial fibrillation (principal); I48.92 Unspecified atrial flutter; Z79.01 Long term (current) use 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
CPT/HCPCS: 36416; 85610

== ENCOUNTER 2019-03-22 15:12 | Outpatient (RCR) | payer MEDICARE, OTHER, SELFPAY ==
[2018-10-05 13:46] VITALS: BMI 26.3
[2019-03-22 17:33] LABS: Absolute Lymphocyte Count 0.53 X10^3/uL (0.83-4.51); Absolute Neutrophil Count 2.7 X10^3/uL (2.0-7.7); Basophil# 0.03 X10^3/uL; Basophil% 0.8 % (0-1); Eosinophil# 0.09 X10^3/uL; Eosinophils% 2.3 % (0-5); Hematocrit 33.1 % (40-54); Hemoglobin 11.2 g/dL (13.0-16.5); Lymphocyte # 0.53 X10^3/ul (4.0); Lymphocyte % 13.4 % (19-41); Mean Corp Hgb Conc 33.8 g/dL (32-36); Mean Corpuscular Volume 109.2 fL (80-94); Mean Platelet Vol. 10.6 fl (6.2-12.0); Monocyte% 15.1 % (0-10); NRBC Flagged by Analyzer 0 % (0-5); Neutrophil # 2.71 X10^3/uL (2.7-7.7); Neutrophil % 68.1 % (47-70); POSITIVE DIFFERENTIAL YES; Platelet Count 106 K/mm3 (150-450); RBC Distribution Width CV 13.6 % (11.6-14.6); RBC Distribution Width SD 55.5 fl (35.1-43.9); Red Blood Count 3.03 M/mm3 (4.6-6.2)
[2019-03-22 17:45] LABS: International Normalized Ratio 2.6; Prothrombin Time (Protime)PT. 28.1 SECONDS (11.7-14.9)
[2019-03-22 18:04] LABS: Differential Indicated SCAN CRITERIA MET
[2019-03-23 14:39] LABS: Pathologist Review Reviewed
== END 2019-03-22 18:00 | disposition home or self-care (01) ==
LOC: MTLAB 15:12
PROVIDERS: Internal Medicine Gastroenterology; Family Provider Family Medicine; PCP Family Medicine; Referring Provider Internal Medicine Cardiovascular Disease; Visit Provider Internal Medicine Cardiovascular Disease
DX: I48.91 Unspecified atrial fibrillation (principal); I48.92 Unspecified atrial flutter; Z79.01 Long term (current) use 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
CPT/HCPCS: 36415; 85025; 85610

== ENCOUNTER 2019-04-19 09:35 | Outpatient (RCR) | payer MEDICARE, OTHER, SELFPAY ==
[2018-10-05 13:46] VITALS: BMI 26.3
[2019-04-19 12:33] LABS: Absolute Lymphocyte Count 0.68 X10^3/uL (0.83-4.51); Absolute Neutrophil Count 2.5 X10^3/uL (2.0-7.7); Basophil# 0.02 X10^3/uL; Basophil% 0.5 % (0-1); Eosinophil# 0.22 X10^3/uL; Eosinophils% 5.7 % (0-5); Hematocrit 34.2 % (40-54); Hemoglobin 11.4 g/dL (13.0-16.5); Lymphocyte # 0.68 X10^3/ul (4.0); Lymphocyte % 17.7 % (19-41); Mean Corp Hgb Conc 33.3 g/dL (32-36); Mean Corpuscular Hgb 36.1 pg (27.0-32.0); Mean Corpuscular Volume 108.2 fL (80-94); Mean Platelet Vol. 10.7 fl (6.2-12.0); Monocyte# 0.44 X10^3/uL; Monocyte% 11.5 % (0-10); NRBC Flagged by Analyzer 0 % (0-5); Neutrophil # 2.47 X10^3/uL (2.7-7.7); Neutrophil % 64.3 % (47-70); Platelet Count 104 K/mm3 (150-450); RBC Distribution Width CV 13.7 % (11.6-14.6); RBC Distribution Width SD 54.9 fl (35.1-43.9); Red Blood Count 3.16 M/mm3 (4.6-6.2); White Blood Count 3.8 K/mm3 (4.4-11.0)
[2019-04-19 12:52] LABS: International Normalized Ratio 2.2; Prothrombin Time (Protime)PT. 24.2 SECONDS (11.7-14.9)
[2019-04-19 13:17] LABS: AST(SGOT) 35 U/L (15-37); Alanine Aminotransfer ALT/SGPT 23 U/L (16-61); Albumin, Serum 3.9 g/dL (3.2-5.0); Alkaline Phosphatase 90 U/L (45-117); Bilirubin, Direct 0.14 mg/dL (0.00-0.30); Cholesterol 180 mg/dL (200); Globulin 2.6 g/dL (2.2-4.2); High Density Lipoprotein 92 mg/dL; Protein, Total 6.5 g/dL (6.4-8.2); Triglycerides 94 mg/dL; Very Low Density Lipoprotein 19 mg/dL (5-40)
== END 2019-04-19 18:00 | disposition home or self-care (01) ==
LOC: MTLAB 09:35
PROVIDERS: Internal Medicine Gastroenterology; Nurse Practitioner Family; Family Provider Family Medicine; PCP Family Medicine; Referring Provider Internal Medicine Cardiovascular Disease; Visit Provider Internal Medicine Cardiovascular Disease
DX: K51.90 Ulcerative colitis, unspecified, without complications (principal); Z79.01 Long term (current) use 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; E78.5 Hyperlipidemia, unspecified
CPT/HCPCS: 36415; 80061; 80076; 85025; 85610

== ENCOUNTER 2019-05-18 13:01 | Outpatient (RCR) | payer MEDICARE, OTHER, SELFPAY ==
[2018-10-05 13:46] VITALS: BMI 26.3
[2019-05-18 13:54] LABS: Absolute Lymphocyte Count 0.61 X10^3/uL (0.83-4.51); Absolute Neutrophil Count 3.5 X10^3/uL (2.0-7.7); Basophil# 0.04 X10^3/uL; Basophil% 0.8 % (0-1); Eosinophil# 0.07 X10^3/uL; Eosinophils% 1.4 % (0-5); Hematocrit 33.3 % (40-54); Hemoglobin 10.9 g/dL (13.0-16.5); Lymphocyte # 0.61 X10^3/ul (4.0); Lymphocyte % 12.3 % (19-41); Mean Corp Hgb Conc 32.7 g/dL (32-36); Mean Corpuscular Hgb 36.3 pg (27.0-32.0); Mean Platelet Vol. 10.5 fl (6.2-12.0); Monocyte# 0.71 X10^3/uL; Monocyte% 14.3 % (0-10); NRBC Flagged by Analyzer 0 % (0-5); Neutrophil # 3.53 X10^3/uL (2.7-7.7); Platelet Count 136 K/mm3 (150-450); RBC Distribution Width CV 14.1 % (11.6-14.6); RBC Distribution Width SD 57.9 fl (35.1-43.9)
[2019-05-18 14:03] LABS: International Normalized Ratio 1.4; Prothrombin Time (Protime)PT. 16.5 SECONDS (11.7-14.9)
== END 2019-05-18 18:00 | disposition home or self-care (01) ==
LOC: MTLAB 13:01
PROVIDERS: Internal Medicine Gastroenterology; Family Provider Family Medicine; PCP Family Medicine; Referring Provider Internal Medicine Cardiovascular Disease; Visit Provider Internal Medicine Cardiovascular Disease
DX: K51.90 Ulcerative colitis, unspecified, without complications (principal); Z79.01 Long term (current) use 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
CPT/HCPCS: 36415; 85025; 85610

== ENCOUNTER 2019-06-28 14:33 | Outpatient (RCR) | payer MEDICARE, OTHER, SELFPAY ==
[2018-10-05 13:46] VITALS: BMI 26.3
[2019-06-28 18:03] LABS: Absolute Lymphocyte Count 0.94 X10^3/uL (0.83-4.51); Absolute Neutrophil Count 4.3 X10^3/uL (2.0-7.7); Basophil# 0.03 X10^3/uL; Basophil% 0.5 % (0-1); Eosinophil# 0.03 X10^3/uL; Eosinophils% 0.5 % (0-5); Hematocrit 34.3 % (40-54); Hemoglobin 11.1 g/dL (13.0-16.5); Lymphocyte # 0.94 X10^3/ul (4.0); Mean Corp Hgb Conc 32.4 g/dL (32-36); Mean Corpuscular Hgb 35.1 pg (27.0-32.0); Mean Corpuscular Volume 108.5 fL (80-94); Mean Platelet Vol. 11.6 fl (6.2-12.0); Monocyte# 0.59 X10^3/uL; Monocyte% 10.1 % (0-10); NRBC Flagged by Analyzer 0 % (0-5); Neutrophil # 4.25 X10^3/uL (2.7-7.7); Neutrophil % 72.6 % (47-70); Platelet Count 167 K/mm3 (150-450); RBC Distribution Width CV 13.2 % (11.6-14.6); RBC Distribution Width SD 53.5 fl (35.1-43.9); Red Blood Count 3.16 M/mm3 (4.6-6.2); White Blood Count 5.9 K/mm3 (4.4-11.0)
[2019-06-28 18:24] LABS: International Normalized Ratio 3.4; Prothrombin Time (Protime)PT. 34.5 SECONDS (11.7-14.9)
== END 2019-06-28 18:00 | disposition home or self-care (01) ==
LOC: MTLAB 14:33
PROVIDERS: Internal Medicine Gastroenterology; Family Provider Family Medicine; PCP Family Medicine; Referring Provider Internal Medicine Cardiovascular Disease; Visit Provider Internal Medicine Cardiovascular Disease
DX: K51.90 Ulcerative colitis, unspecified, without complications (principal); Z79.01 Long term (current) use 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
CPT/HCPCS: 36415; 85025; 85610

== ENCOUNTER 2019-07-28 13:36 | Outpatient (RCR) | payer MEDICARE, OTHER, SELFPAY ==
[2018-10-05 13:46] VITALS: BMI 26.3
[2019-07-05 10:27] VITALS: BMI 26.0
[2019-07-14 11:35] LABS: Prothrombin Time Fingerstick 43.1 SEC (11.9-14.4)
[2019-07-14 14:40] LABS: International Normalized Ratio 3.8
[2019-07-14 14:43] LABS: Prothrombin Time (Protime)PT. 37.5 SECONDS (11.7-14.9)
[2019-07-28 13:46] LABS: Prothrombin Time Fingerstick 31.6 SEC (11.9-14.4)
== END 2019-07-28 18:00 | disposition home or self-care (01) ==
LOC: MTLAB 13:36
PROVIDERS: Family Provider Family Medicine; PCP Family Medicine; Referring Provider Internal Medicine Cardiovascular Disease; Visit Provider Internal Medicine Cardiovascular Disease
DX: Z79.01 Long term (current) use 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 (principal)
CPT/HCPCS: 36415; 36416; 85610

== ENCOUNTER 2019-08-25 14:21 | Outpatient (RCR) | payer MEDICARE, OTHER, SELFPAY ==
[2019-07-05 10:27] VITALS: BMI 26.0
[2019-08-25 14:36] LABS: Prothrombin Time Fingerstick 19.9 SEC (11.9-14.4)
== END 2019-08-25 18:00 | disposition home or self-care (01) ==
LOC: MTLAB 14:21
PROVIDERS: Family Provider Family Medicine; PCP Family Medicine; Referring Provider Internal Medicine Cardiovascular Disease; Visit Provider Internal Medicine Cardiovascular Disease
DX: Z79.01 Long term (current) use 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 (principal)
CPT/HCPCS: 36416; 85610

== ENCOUNTER → 2019-09-08 06:28 | Outpatient (CLI) | payer MEDICARE, OTHER, SELFPAY ==
[2019-07-05 10:27] VITALS: BMI 26.0
--- NOTE | 2019-09-08 06:29 | ECHOD_ITS ---
Reason For Study: CAD/ASHD Procedure This was a 2D Doppler, Color Flow transthoracic echocardiogram. The study was technically difficult. Did not use Definity due to increased PAP. Exam performed in department. Left Ventricle Normal LV size. Segmental dysfunction with preserved ejection fraction (see wall motion). The estimated ejection fraction is 65 %. Unable to assess diastolic dysfunction. Posterior-Basal: Hypokinetic. Infero-Basal: Hypokinetic. Right Ventricle Normal RV size. Normal systolic function. Atria Moderate to severe left atrial enlargement. The right atrium is mildly enlarged. No doppler evidence for ASD. Mitral Valve There is moderate mitral annular calcification. Extension of the mitral annular calcification onto the mitral valve leaflets. Mild focal mitral valve calcification of the anterior leaflet. Moderate (2+) mitral valve insufficiency. Tricuspid Valve Normal tricuspid valve. Moderate (2+) eccentric tricuspid valve insufficiency. Right ventricular systolic pressure estimated to be 67 mmHg. Aortic Valve Trisinus/trileaflet aortic valve. Normal aortic valve. Pulmonic Valve The pulmonic valve is not well visualized. Great Vessels Normal sized aortic root. Pericardium/Pleural No pericardial effusion. MMode/2D Measurements & Calculations LVIDd: 4.5 cm IVSd: 1.5 cm Ao root diam: 2.8 cm LVIDs: 2.9 cm LVPWd: 0.75 cm RVDd: 3.7 cm FS: 36.1 % LAV(MOD-bp): 66.9 ml LA A4 area: 24.8 cm2 LA dimension(2D): 5.6 cm LAV(MOD-bp) Indexed: 32.6 ml/m2 LAV(MOD-sp2): 60.0 ml LAV(MOD-sp4): 73.6 ml RA A4 area: 18.8 cm2 Doppler Measurements & Calculations MV E max babar: 146.2 cm/sec MV V2 max: 157.4 cm/sec Ao V2 max: 142.4 cm/sec MV max P.9 mmHg Ao max P.1 mmHg MV V2 mean: 93.2 cm/sec Ao V2 mean: 101.7 cm/sec MV mean P.1 mmHg Ao mean P.5 mmHg MV V2 VTI: 24.0 cm Ao V2 VTI: 23.6 cm LV V1 max: 103.8 cm/sec PA V2 max: 92.9 cm/sec TR max babar: 382.7 cm/sec LV V1 max P.4 mmHg TR max P.6 mmHg Interpretation Summary The study was technically difficult. Segmental dysfunction with preserved ejection fraction (see wall motion). The estimated ejection fraction is 65 %. Moderate to severe left atrial enlargement. The right atrium is mildly enlarged. There is moderate mitral annular calcification. Extension of the mitral annular calcification onto the mitral valve leaflets. Mild focal mitral valve calcification of the anterior leaflet. Moderate (2+) mitral valve insufficiency. Moderate (2+) eccentric tricuspid valve insufficiency. Right ventricular systolic pressure estimated to be 67 mmHg. Unable to assess diastolic dysfunction. Ordering Physician: Brooks Borges Referring Physician: Rosa Maria Santacruz Performed By: Marivel Jolly, FOXCS, RVT
--- NOTE | 2019-09-08 10:44 | STRESSREP ---
Stress Test Report Date: 09-08-2019 Procedure: Pharmacologic stress nuclear imaging study Indications: This of breath/dyspnea on exertion; CAD; PCI; CABG; atrial fibrillation Consent: Per the patient Procedure: The patient underwent pharmacologic (Regadenoson) evaluation with a peak heart rate of 114 beats per minute (80 %predicted maximal heart rate) and a peak blood pressure of 160/90 mmHg. The baseline ECG demonstrated atrial fibrillation; poor R wave progression; nonspecific T wave abnormality. The peak pharmacologic ECG demonstrated no obvious ECG changes. There were no cardiac dysrhythmias pretest, during pharmacologic infusion, or recovery. There was no complaint of chest discomfort during pharmacologic infusion or recovery. The examination was discontinued secondary to completion of protocol. Impression: 1. Pharmacologic (Regadenoson) evaluation 2. Peak pharmacologic ECG with continued atrial fibrillation with poor R wave progression with nonspecific T wave abnormality. 3. There were no cardiac dysrhythmias pretest, during pharmacologic infusion, or recovery. 4. Nuclear images pending Myocardial perfusion imaging study: Technique: The patient was injected with 11.0 millicuries of technetium 99m Cardiolite and subsequently rest SPECT Cardiolite nuclear imaging was obtained in the horizontal long, vertical long, and short axis views. The patient underwent pharmacologic (Regadenoson) evaluation with a peak heart rate of 114 beats per minute (80 % percent predicted maximal heart rate) and a peak blood pressure of 160/90 mmHg. The patient was injected with 33.0 millicuries of technetium 99m Cardiolite and subsequently stress SPECT Cardiolite nuclear imaging was obtained in the horizontal long, vertical long, and short axis views. A gated Cardiolite study at peak stress was obtained. Interpretation: Rest and stress SPECT Cardiolite nuclear imaging status post realignment, normalization, and attenuation correction demonstrate rest the appearance of relative uniform tracer uptake and myocardial perfusion appearing within normal limits. Status post stress there is notation of diminished myocardial perfusion/tracer uptake in portions of the mid inferoseptal/mid inferior segments. There is end systolic thickening and brightening. The gated Cardiolite study demonstrates myocardial thickening and inward wall motion. The reported LVEF is 65 %. Impression: 1. Rest and stress SPECT Cardiolite nuclear imaging demonstrate myocardial perfusion changes concerning for an area of stress-induced myocardial ischemia in portions of the mid inferior septal/mid inferior segments. 2. The gated Cardiolite study reports an LVEF of 65 %. This note was generated with [employer] (formerly OpenERP)ation software. It may contain incorrect words, spelling, and punctuation that were not noted in checking the note before signing.
== END ==
PROVIDERS: PCP Family Medicine; Referring Provider Internal Medicine Cardiovascular Disease; Visit Provider Internal Medicine Cardiovascular Disease
DX: I25.10 Atherosclerotic heart disease of native coronary artery without angina pectoris (principal); I48.91 Unspecified atrial fibrillation; I48.92 Unspecified atrial flutter; R06.09 Other forms of dyspnea; Z95.1 Presence of aortocoronary bypass graft
CPT/HCPCS: 78452; 93017; 93306; A9500; A4216; J2785

== ENCOUNTER 2019-09-28 14:26 | Outpatient (RCR) | payer MEDICARE, OTHER, SELFPAY ==
[2019-07-05 10:27] VITALS: BMI 26.0
[2019-09-28 17:47] LABS: Absolute Neutrophil Count 3.6 X10^3/uL (2.0-7.7); Basophil# 0.03 X10^3/uL; Basophil% 0.6 % (0-1); Eosinophil# 0.18 X10^3/uL; Eosinophils% 3.6 % (0-5); Hematocrit 37.8 % (40-54); Hemoglobin 12.6 g/dL (13.0-16.5); Mean Corp Hgb Conc 33.3 g/dL (32-36); Mean Corpuscular Volume 110.9 fL (80-94); Mean Platelet Vol. 11.2 fl (6.2-12.0); Monocyte# 0.55 X10^3/uL; NRBC Flagged by Analyzer 0 % (0-5); Neutrophil # 3.61 X10^3/uL (2.7-7.7); Neutrophil % 72.6 % (47-70); POSITIVE DIFFERENTIAL YES; Platelet Count 103 K/mm3 (150-450); RBC Distribution Width CV 14.1 % (11.6-14.6); RBC Distribution Width SD 57.3 fl (35.1-43.9); Red Blood Count 3.41 M/mm3 (4.6-6.2)
[2019-09-28 17:48] LABS: Differential Indicated SCAN CRITERIA MET
[2019-09-28 17:49] LABS: International Normalized Ratio 1.6; Prothrombin Time (Protime)PT. 18.7 SECONDS (11.7-14.9)
[2019-09-28 18:42] LABS: Differential Comment SCANNED
== END 2019-09-28 18:00 | disposition home or self-care (01) ==
LOC: MTLAB 14:26
PROVIDERS: Internal Medicine Gastroenterology; Family Provider Family Medicine; PCP Family Medicine; Referring Provider Internal Medicine Cardiovascular Disease; Visit Provider Internal Medicine Cardiovascular Disease
DX: Z79.01 Long term (current) use 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 (principal)
CPT/HCPCS: 36415; 85025; 85610

== ENCOUNTER → 2019-10-07 12:56 | Outpatient (CLI) | payer MEDICARE, OTHER, SELFPAY ==
[2019-07-05 10:27] VITALS: BMI 26.0
[2019-10-07 15:32] LABS: Anion Gap 7 (5-15); BUN 29 mg/dL (7-18); BUN/Creat Ratio 15.6 RATIO (10-20); Calcium,Total 8.9 mg/dL (8.5-10.1); Chloride 112 mmol/L (98-107); Creatinine, Serum 1.86 mg/dL (0.70-1.30); EST Glomerular Filtration Rate 38 mL/min (>60); Est Glom Filt Rate - Afr Amer 45 mL/min (>60); Glucose 163 mg/dL (74-106); Potassium 4.7 mmol/L (3.5-5.1); Sodium Level 142 mmol/L (136-145)
== END ==
PROVIDERS: PCP Family Medicine; Referring Provider Internal Medicine Cardiovascular Disease; Visit Provider Internal Medicine Cardiovascular Disease
DX: I25.10 Atherosclerotic heart disease of native coronary artery without angina pectoris (principal); I48.91 Unspecified atrial fibrillation; I48.92 Unspecified atrial flutter; I49.1 Atrial premature depolarization; Z95.1 Presence of aortocoronary bypass graft
CPT/HCPCS: 36415; 80048

== ENCOUNTER → 2019-10-13 11:31 | Outpatient (CLI) | payer MEDICARE, OTHER, SELFPAY ==
[2019-07-05 10:27] VITALS: BMI 26.0
[2019-10-13 15:40] LABS: BUN 30 mg/dL (7-18); Creatinine, Serum 1.98 mg/dL (0.70-1.30); EST Glomerular Filtration Rate 35 mL/min (>60); Est Glom Filt Rate - Afr Amer 42 mL/min (>60)
== END ==
PROVIDERS: PCP Family Medicine
DX: I77.1 Stricture of artery (principal)
CPT/HCPCS: 36415; 82565; 84520

== ENCOUNTER 2019-10-21 07:21 | Outpatient (RCR) | payer MEDICARE, OTHER, SELFPAY ==
[2019-07-05 10:27] VITALS: BMI 26.0
[2019-10-21 09:49] LABS: Absolute Lymphocyte Count 0.78 X10^3/uL (0.83-4.51); Absolute Neutrophil Count 2.1 X10^3/uL (2.0-7.7); Basophil# 0.02 X10^3/uL; Basophil% 0.6 % (0-1); Eosinophils% 5.6 % (0-5); Hematocrit 27.9 % (40-54); Hemoglobin 8.9 g/dL (13.0-16.5); Lymphocyte # 0.78 X10^3/ul (4.0); Lymphocyte % 21.8 % (19-41); Mean Corp Hgb Conc 31.9 g/dL (32-36); Mean Corpuscular Volume 109.8 fL (80-94); Mean Platelet Vol. 10.7 fl (6.2-12.0); Monocyte# 0.46 X10^3/uL; Monocyte% 12.8 % (0-10); NRBC Flagged by Analyzer 0 % (0-5); Neutrophil # 2.11 X10^3/uL (2.7-7.7); Neutrophil % 58.9 % (47-70); Platelet Count 120 K/mm3 (150-450); RBC Distribution Width CV 14.7 % (11.6-14.6); Red Blood Count 2.54 M/mm3 (4.6-6.2); White Blood Count 3.6 K/mm3 (4.4-11.0)
[2019-10-21 10:07] LABS: International Normalized Ratio 1.2; Prothrombin Time (Protime)PT. 14.6 SECONDS (11.7-14.9)
[2019-10-21 10:12] LABS: AST(SGOT) 27 U/L (15-37); Alanine Aminotransfer ALT/SGPT 16 U/L (16-61); Albumin, Serum 3.5 g/dL (3.2-5.0); Alkaline Phosphatase 90 U/L (45-117); Bilirubin, Direct 0.26 mg/dL (0.00-0.30); Cholesterol 139 mg/dL (200); Globulin 2.4 g/dL (2.2-4.2); High Density Lipoprotein 61 mg/dL; Protein, Total 5.9 g/dL (6.4-8.2); Triglycerides 107 mg/dL; Very Low Density Lipoprotein 21 mg/dL (5-40)
== END 2019-10-28 18:00 | disposition home or self-care (01) ==
LOC: MTLAB 07:21
PROVIDERS: Nurse Practitioner Family; Family Provider Family Medicine; PCP Family Medicine; Referring Provider Internal Medicine Cardiovascular Disease; Visit Provider Internal Medicine Cardiovascular Disease
DX: Z79.01 Long term (current) use 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 (principal); E78.00 Pure hypercholesterolemia, unspecified; E78.5 Hyperlipidemia, unspecified
CPT/HCPCS: 36415; 80061; 80076; 85025; 85610

== ENCOUNTER → 2019-11-23 14:00 | Outpatient (CLI) | payer MEDICARE, OTHER, SELFPAY ==
[2019-07-05 10:27] VITALS: BMI 26.0
== END ==
PROVIDERS: PCP Family Medicine; Referring Provider Family Medicine; Visit Provider Family Medicine
DX: Z00.00 Encounter for general adult medical examination without abnormal findings (principal)

== ENCOUNTER 2019-12-13 15:41 | Outpatient (RCR) | payer MEDICARE, OTHER, SELFPAY ==
[2019-07-05 10:27] VITALS: BMI 26.0
[2019-11-23 15:07] LABS: Absolute Lymphocyte Count 0.63 X10^3/uL (0.83-4.51); Basophil# 0.03 X10^3/uL; Basophil% 0.7 % (0-1); Eosinophil# 0.15 X10^3/uL; Eosinophils% 3.5 % (0-5); Hematocrit 34.8 % (40-54); Hemoglobin 11.6 g/dL (13.0-16.5); Lymphocyte # 0.63 X10^3/ul (4.0); Lymphocyte % 14.8 % (19-41); Mean Corp Hgb Conc 33.3 g/dL (32-36); Mean Corpuscular Hgb 36.9 pg (27.0-32.0); Mean Corpuscular Volume 110.8 fL (80-94); Mean Platelet Vol. 10.8 fl (6.2-12.0); Monocyte# 0.44 X10^3/uL; Monocyte% 10.3 % (0-10); NRBC Flagged by Analyzer 0 % (0-5); Neutrophil # 3.02 X10^3/uL (2.7-7.7); Neutrophil % 70.7 % (47-70); Platelet Count 102 K/mm3 (150-450); RBC Distribution Width CV 15.6 % (11.6-14.6); Red Blood Count 3.14 M/mm3 (4.6-6.2); White Blood Count 4.3 K/mm3 (4.4-11.0)
[2019-11-23 15:18] LABS: International Normalized Ratio 1.7; Prothrombin Time (Protime)PT. 19.3 SECONDS (11.7-14.9)
== END 2019-12-13 15:45 | disposition home or self-care (01) ==
LOC: MTLAB 15:41
PROVIDERS: Internal Medicine Gastroenterology; Family Provider Family Medicine; PCP Family Medicine; Referring Provider Internal Medicine Cardiovascular Disease; Visit Provider Internal Medicine Cardiovascular Disease
DX: K51.90 Ulcerative colitis, unspecified, without complications (principal); Z79.01 Long term (current) use 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
CPT/HCPCS: 36415; 85025; 85610

== ENCOUNTER 2019-12-13 15:52 | Outpatient (RCR) | payer MEDICARE, OTHER, SELFPAY ==
[2019-07-05 10:27] VITALS: BMI 26.0
[2019-12-13 16:01] LABS: Prothrombin Time Fingerstick 22.9 SEC (11.9-14.4)
== END 2019-12-13 18:00 | disposition home or self-care (01) ==
LOC: MTLAB 15:52
PROVIDERS: Family Provider Family Medicine; PCP Family Medicine; Referring Provider Internal Medicine Cardiovascular Disease; Visit Provider Internal Medicine Cardiovascular Disease
DX: Z79.01 Long term (current) use 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 (principal)
CPT/HCPCS: 36416; 85610

== ENCOUNTER → 2019-12-29 08:55 | Outpatient (CLI) | payer MEDICARE, OTHER, SELFPAY ==
[2019-07-05 10:27] VITALS: BMI 26.0
--- NOTE | 2019-12-29 09:00 | AAAS_ITS ---
Reason For Study: Mesentric artery stenosis Aorta Measurements Prox Aorta 119.8 cm/sec. Mid Aorta 86.9 cm/sec. Distal Aorta 74.1 cm/sec. SMA Origin 413.3 cm/sec. SMA Prox 336.2 cm/sec. SMA Mid 224.3 cm/sec. SMA Distal 122.6 cm/sec. Celiac artery 522 cm/sec. Hepatic artery 159.5 cm/sec. Splenic artery 123.8 cm/sec. LELAND Origin 483.1 cm/sec LELAND Prox 230.5 cm/sec. LELAND Mid 125.2 cm/sec. LELAND Distal 83.7 cm/sec. Procedure Aorta IVC Iliac vasculature or bypass grafts [id number]. Exam performed in department. Interpretation Summary SMA, celiac and LELAND all appear to have significant stenosis >70%. Ordering Physician: Singh Khanna Referring Physician: Rosa Maria Santacruz M.D. Performed By: Fe Turner RVT
--- NOTE | 2019-12-29 09:00 | CDU_ITS ---
Reason For Study: Carotid stenosis Rt. Velocities/BP Lt. Velocities/BP Prox CCA 74.7/12.1 cm/sec. Prox CCA 77.2/14.6 cm/sec. Mid CCA 74.7/18.6 cm/sec. Mid CCA 71.7/14.6 cm/sec. Dist CCA 89.1/20 cm/sec. Dist CCA 59.7/13.5 cm/sec. Prox ICA 130.2/40.7 cm/sec. Prox ICA 171.7/39.6 cm/sec. Mid ICA 121.1/33.4 cm/sec. Mid ICA 88.4/16 cm/sec. Dist ICA 81.4/28.6 cm/sec. Dist ICA 97.2/22.6 cm/sec. Rt. ICA/CCA = 1.7. Lt. ICA/CCA = 2.4. Prox ECA 93/12.1 cm/sec. Prox ECA 266/26.8 cm/sec. Rt. Vert. 34.3/8.8 cm/sec. Lt. Vert. 43.2/13.5 cm/sec. Right Extracranial There is heterogeneous, irregular atherosclerotic plaque noted in the right common carotid artery. There is heterogeneous, irregular atherosclerotic plaque noted in the right internal carotid artery. There is intimal thickening but no significant atherosclerotic plaque noted in the right external carotid artery. Antegrade flow is noted in the right vertebral artery. There is heterogeneous, irregular atherosclerotic plaque noted in the right bulb. Left Extracranial There is homogeneous, smooth atherosclerotic plaque noted in the left common carotid artery. There is heterogeneous, irregular atherosclerotic plaque noted in the left internal carotid artery. There is heterogeneous, irregular atherosclerotic plaque noted in the left external carotid artery. Antegrade flow is noted in the left vertebral artery. Procedure Carotid Duplex [id number]. Exam performed in department. Interpretation Summary Moderate (50-69%) stenosis right extracranial internal carotid. Moderate (50-69%) stenosis left extracranial internal carotid. Flow within the vertebral arteries is antegrade bilaterally. Ordering Physician: Singh Khanna Referring Physician: Rosa Maria Santacruz M.D. Performed By: Fe Turner RVT
== END ==
PROVIDERS: PCP Family Medicine; Referring Provider Surgery Vascular Surgery; Visit Provider Surgery Vascular Surgery
DX: I65.23 Occlusion and stenosis of bilateral carotid arteries (principal); I77.1 Stricture of artery
CPT/HCPCS: 76706; 93880

== ENCOUNTER 2020-01-28 15:20 | Outpatient (RCR) | payer MEDICARE, OTHER, SELFPAY ==
[2019-07-05 10:27] VITALS: BMI 26.0
[2020-01-03 16:03] LABS: Absolute Lymphocyte Count 0.52 X10^3/uL (0.83-4.51); Absolute Neutrophil Count 3.2 X10^3/uL (2.0-7.7); Basophil# 0.03 X10^3/uL; Basophil% 0.7 % (0-1); Eosinophils% 4.5 % (0-5); Hematocrit 37.7 % (40-54); Hemoglobin 12.2 g/dL (13.0-16.5); Lymphocyte # 0.52 X10^3/ul (4.0); Lymphocyte % 11.7 % (19-41); Mean Corp Hgb Conc 32.4 g/dL (32-36); Mean Corpuscular Hgb 35.9 pg (27.0-32.0); Mean Corpuscular Volume 110.9 fL (80-94); Mean Platelet Vol. 11.5 fl (6.2-12.0); Monocyte% 11.3 % (0-10); NRBC Flagged by Analyzer 0 % (0-5); Neutrophil # 3.18 X10^3/uL (2.7-7.7); Neutrophil % 71.6 % (47-70); POSITIVE COUNT YES; POSITIVE DIFFERENTIAL YES; Platelet Count 90 K/mm3 (150-450); RBC Distribution Width SD 57.7 fl (35.1-43.9); White Blood Count 4.4 K/mm3 (4.4-11.0)
[2020-01-03 16:23] LABS: International Normalized Ratio 2.8; Prothrombin Time (Protime)PT. 29.2 SECONDS (11.7-14.9)
[2020-01-03 16:26] LABS: Differential Indicated SCAN CRITERIA MET
[2020-01-03 18:15] LABS: Anisocytosis 1+; Platelet Estimate MOD DEC (ADEQ)
[2020-01-03 18:16] LABS: Hypochromasia 2+; Macrocytosis 2+
[2020-01-28 17:26] LABS: Absolute Lymphocyte Count 0.71 X10^3/uL (0.83-4.51); Basophil# 0.03 X10^3/uL; Basophil% 0.7 % (0-1); Eosinophil# 0.21 X10^3/uL; Eosinophils% 4.6 % (0-5); Hematocrit 37.9 % (40-54); Hemoglobin 12.4 g/dL (13.0-16.5); Lymphocyte # 0.71 X10^3/ul (4.0); Lymphocyte % 15.4 % (19-41); Mean Corp Hgb Conc 32.7 g/dL (32-36); Mean Corpuscular Hgb 35.2 pg (27.0-32.0); Mean Corpuscular Volume 107.7 fL (80-94); Mean Platelet Vol. 10.8 fl (6.2-12.0); Monocyte# 0.63 X10^3/uL; Monocyte% 13.7 % (0-10); NRBC Flagged by Analyzer 0 % (0-5); Neutrophil # 3.02 X10^3/uL (2.7-7.7); Neutrophil % 65.4 % (47-70); POSITIVE COUNT YES; Platelet Count 92 K/mm3 (150-450); RBC Distribution Width CV 13.7 % (11.6-14.6); RBC Distribution Width SD 54.2 fl (35.1-43.9); Red Blood Count 3.52 M/mm3 (4.6-6.2); White Blood Count 4.6 K/mm3 (4.4-11.0)
[2020-01-28 17:40] LABS: International Normalized Ratio 1.5; Prothrombin Time (Protime)PT. 17.5 SECONDS (11.7-14.9)
== END 2020-01-28 18:00 | disposition home or self-care (01) ==
LOC: MTLAB 15:20
PROVIDERS: Internal Medicine Gastroenterology; Family Provider Family Medicine; PCP Family Medicine; Referring Provider Internal Medicine Cardiovascular Disease; Visit Provider Internal Medicine Cardiovascular Disease
DX: K51.90 Ulcerative colitis, unspecified, without complications (principal); Z79.01 Long term (current) use 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
CPT/HCPCS: 36415; 85025; 85610

== ENCOUNTER 2020-02-28 13:39 | Outpatient (RCR) | payer MEDICARE, OTHER, SELFPAY ==
[2019-07-05 10:27] VITALS: BMI 26.0
[2020-02-11 13:41] LABS: Prothrombin Time Fingerstick 19.9 SEC (11.9-14.4)
[2020-03-01 14:41] LABS: Prothrombin Time Fingerstick 26.6 SEC (11.9-14.4)
== END 2020-02-28 18:00 | disposition home or self-care (01) ==
LOC: MTLAB 13:39
PROVIDERS: Family Provider Family Medicine; PCP Family Medicine; Referring Provider Internal Medicine Cardiovascular Disease; Visit Provider Internal Medicine Cardiovascular Disease
DX: Z79.01 Long term (current) use 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 (principal)
CPT/HCPCS: 36416; 85610

== ENCOUNTER 2020-03-13 14:03 | Outpatient (RCR) | payer MEDICARE, OTHER, SELFPAY ==
[2019-07-05 10:27] VITALS: BMI 26.0
[2020-03-03 13:33] VITALS: BMI 26.4
[2020-03-13 15:24] LABS: Absolute Lymphocyte Count 0.76 X10^3/uL (0.83-4.51); Basophil# 0.03 X10^3/uL; Basophil% 0.5 % (0-1); Eosinophil# 0.11 X10^3/uL; Hematocrit 39.1 % (40-54); Hemoglobin 12.7 g/dL (13.0-16.5); Lymphocyte # 0.76 X10^3/ul (4.0); Lymphocyte % 13.9 % (19-41); Mean Corp Hgb Conc 32.5 g/dL (32-36); Mean Corpuscular Hgb 34.6 pg (27.0-32.0); Mean Corpuscular Volume 106.5 fL (80-94); Mean Platelet Vol. 10.9 fl (6.2-12.0); Monocyte# 0.57 X10^3/uL; Monocyte% 10.4 % (0-10); NRBC Flagged by Analyzer 0 % (0-5); Neutrophil # 3.99 X10^3/uL (2.7-7.7); Platelet Count 110 K/mm3 (150-450); RBC Distribution Width CV 14.4 % (11.6-14.6); RBC Distribution Width SD 56.6 fl (35.1-43.9); Red Blood Count 3.67 M/mm3 (4.6-6.2); White Blood Count 5.5 K/mm3 (4.4-11.0)
[2020-03-13 15:34] LABS: International Normalized Ratio 2.3; Prothrombin Time (Protime)PT. 25.2 SECONDS (11.7-14.9)
== END 2020-03-13 18:00 | disposition home or self-care (01) ==
LOC: MTLAB 14:03
PROVIDERS: Internal Medicine Gastroenterology; Family Provider Family Medicine; PCP Family Medicine; Referring Provider Internal Medicine Cardiovascular Disease; Visit Provider Internal Medicine Cardiovascular Disease
DX: K51.90 Ulcerative colitis, unspecified, without complications (principal); Z79.01 Long term (current) use 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; I48.92 Unspecified atrial flutter; I48.91 Unspecified atrial fibrillation
CPT/HCPCS: 36415; 85025; 85610

== ENCOUNTER → 2020-04-19 07:15 | Outpatient (CLI) | payer MEDICARE, OTHER, SELFPAY ==
[2020-03-03 13:33] VITALS: BMI 26.4
[2020-04-19 10:08] LABS: AST(SGOT) 26 U/L (15-37); Alanine Aminotransfer ALT/SGPT 19 U/L (16-61); Albumin, Serum 3.9 g/dL (3.2-5.0); Alkaline Phosphatase 112 U/L (45-117); Bilirubin, Direct 0.38 mg/dL (0.00-0.30); Cholesterol 152 mg/dL (200); Globulin 2.7 g/dL (2.2-4.2); High Density Lipoprotein 86 mg/dL; Protein, Total 6.6 g/dL (6.4-8.2); Triglycerides 101 mg/dL; Very Low Density Lipoprotein 20 mg/dL (5-40)
== END ==
PROVIDERS: PCP Family Medicine; Referring Provider Nurse Practitioner Family; Visit Provider Nurse Practitioner Family
DX: E78.00 Pure hypercholesterolemia, unspecified (principal); E78.5 Hyperlipidemia, unspecified
CPT/HCPCS: 36415; 80061; 80076

== ENCOUNTER 2020-04-28 07:15 | Outpatient (RCR) | payer MEDICARE, OTHER, SELFPAY ==
[2020-03-03 13:33] VITALS: BMI 26.4
[2020-03-31 14:46] LABS: Prothrombin Time Fingerstick 27.7 SEC (11.9-14.4)
[2020-04-14 16:01] LABS: Prothrombin Time Fingerstick 28.1 SEC (11.9-14.4)
[2020-04-28 09:42] LABS: Absolute Lymphocyte Count 0.66 X10^3/uL (0.83-4.51); Absolute Neutrophil Count 2.9 X10^3/uL (2.0-7.7); Basophil# 0.02 X10^3/uL; Basophil% 0.5 % (0-1); Eosinophils% 2.4 % (0-5); Hematocrit 39.8 % (40-54); Hemoglobin 12.7 g/dL (13.0-16.5); Lymphocyte # 0.66 X10^3/ul (4.0); Lymphocyte % 15.6 % (19-41); Mean Corp Hgb Conc 31.9 g/dL (32-36); Mean Corpuscular Volume 109.6 fL (80-94); Mean Platelet Vol. 11.4 fl (6.2-12.0); Monocyte# 0.57 X10^3/uL; Monocyte% 13.5 % (0-10); NRBC Flagged by Analyzer 0 % (0-5); Neutrophil # 2.87 X10^3/uL (2.7-7.7); Neutrophil % 67.8 % (47-70); Platelet Count 100 K/mm3 (150-450); RBC Distribution Width CV 15.7 % (11.6-14.6); RBC Distribution Width SD 64.3 fl (35.1-43.9); Red Blood Count 3.63 M/mm3 (4.6-6.2); White Blood Count 4.2 K/mm3 (4.4-11.0)
[2020-04-28 09:53] LABS: International Normalized Ratio 2.3; Prothrombin Time (Protime)PT. 24.9 SECONDS (11.7-14.9)
[2020-04-28 10:10] LABS: Anion Gap 11 (5-15); BUN 37 mg/dL (7-18); BUN/Creat Ratio 18.2 RATIO (10-20); Calcium,Total 8.8 mg/dL (8.5-10.1); Chloride 108 mmol/L (98-107); Creatinine, Serum 2.03 mg/dL (0.70-1.30); EST Glomerular Filtration Rate 34 mL/min (>60); Est Glom Filt Rate - Afr Amer 41 mL/min (>60); Glucose 72 mg/dL (74-106); Potassium 4.4 mmol/L (3.5-5.1); Sodium Level 142 mmol/L (136-145)
--- NOTE | 2020-04-28 10:35 | RAD_ITS ---
STUDY: X-RAY CHEST REASON FOR EXAM: Male, 79 years old. PRE DCCV EVALUATION -- HX OF AFIB, HTN, CABG TECHNIQUE: PA and lateral views of the chest. COMPARISON: 08/29/2016 FINDINGS: Interval median sternotomy. The lungs are clear and expanded. Tiny bilateral pleural effusions. There is moderate cardiac enlargement. Normal mediastinum and aidan. Normal visualized pulmonary arteries. Normal visualized aortic arch and descending thoracic aorta. Normal visualized thoracic spine. Normal visualized ribs, clavicles, and shoulders. There is no demonstrated abnormality of the visualized soft tissue structures of the upper abdomen. RAD/Chest PA and Lateral IMPRESSION: Tiny bilateral pleural effusions. Electronically Signed: Mayank Haddad MD at 9:18 EDT Tel , Service support ,
== END 2020-04-28 18:00 | disposition home or self-care (01) ==
LOC: MTLAB 07:15
PROVIDERS: Nurse Practitioner Family; Family Provider Family Medicine; PCP Family Medicine; Referring Provider Internal Medicine Cardiovascular Disease; Visit Provider Internal Medicine Cardiovascular Disease
DX: I48.91 Unspecified atrial fibrillation (principal); I48.92 Unspecified atrial flutter; Z79.01 Long term (current) use 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; I10 Essential (primary) hypertension; Z95.1 Presence of aortocoronary bypass graft; I25.10 Atherosclerotic heart disease of native coronary artery without angina pectoris
CPT/HCPCS: 36415; 36416; 71046; 80048; 85025; 85610

== ENCOUNTER 2020-05-09 10:29 | Day surgery (SDC) | payer MEDICARE, OTHER, SELFPAY ==
[2020-04-26 11:00] VITALS: BMI 26.9
[2020-05-08 11:34] VITALS: BMI 26.9
--- NOTE | 2020-05-09 06:00 | HP_ITS ---
[facility] History of Present Illness Details: EULOGIO NOGUERA, is a 79 year old white male who presents to the office today for outpatient cardiovascular follow-up with a history of coronary artery disease status post drug-eluting stent to proximal/mid RCA April 2009, CABG x2 with ZARAGOZA to LAD and aorta to posterior descending coronary artery to reverse SVG in January 2017, paroxysmal atrial fibrillation/flutter, bilateral carotid artery disease, hypertension, and hyperlipidemia. He is now status post additional noninvasive and invasive evaluation between [facility] and [facility]. His noninvasive studies at [facility] are noted below. At [facility] he underwent diagnostic cardiac catheterization which demonstrated his ZARAGOZA to the LAD to be patent, his SVG to the PDA to be occluded and his left subclavian artery to be angiographically significantly narrowed compromising his ZARAGOZA to the LAD. He was recommended for medical therapy and peripheral vascular evaluation. He subsequently underwent a peripheral vascular evaluation/stent to his left subclavian artery system. He denies chest, arm, jaw, or neck discomfort. His exercise tolerance is stable. He denies symptoms of CHF, palpitations, lightheadedness, dizziness, near syncope, or syncopal episodes. He denies claudication issues. He denies orthopnea, PND, fever, chills, cough, blood in urine, blood in stool, epistaxis, or myalgia. He continues with SOB, fatigue, and lower extremity edema. He states with diuretic therapy, HCTZ and Lasix, he develops severe rash Intake Vital Signs 04/26/20 Height 5 ft 11 in 04/26/20 Weight: 193 lb 04/26/20 BP 120/81 H 04/26/20 Blood Pressure Location Lt brachial 04/26/20 Position Sitting 04/26/20 Respiration 18 04/26/20 Pulse 73 04/26/20 Pulse Source Monitor 04/26/20 Pulse Oximetry (%) 94 Intake Visit Reasons: 6 wk fu Veterinary Radiologist Required: No Is patient in pain?: No Allergies hydrochlorothiazide Allergy (Severe, Verified 04/26/20 10:58) Rash furosemide [From Lasix] Allergy (Verified 04/26/20 11:20) Severe Rash Itchy lovastatin [From Mevacor] Allergy (Verified 04/26/20 10:58) Rash amlodipine Adverse Reaction (Verified 04/26/20 10:58) Swelling Medications Ferrous Sulfate [Iron Supplement] 325 mg PO DAILY 05/28/15 [History Confirmed 04/26/20] Zinc Gluconate [Zinc] 50 mg PO DAILY 05/28/15 [History Confirmed 04/26/20] Vitamin B Complex 1 ea PO DAILY 02/07/16 [History Confirmed 04/26/20] Aspirin E.C. [Ecotrin] 81 mg PO DAILY@0800 08/29/16 [History Confirmed 04/26/20] Pantoprazole Sodium [Protonix] 40 mg PO DAILY 08/29/16 [History Confirmed 04/26/20] lisinopril 20 mg tablet 20 mg PO BID #180 tab 10/18/19 [Rx Confirmed 04/26/20] balsalazide 750 mg capsule 2,250 mg PO BID cap 03/03/20 [History Confirmed 04/26/20] amiodarone 200 mg tablet 200 mg PO DAILY #90 tab 04/03/20 [Rx Confirmed 04/26/20] atorvastatin 40 mg tablet 40 mg PO DAILY #90 tab 04/10/20 [Rx Confirmed 04/26/20] warfarin 5 mg tablet 5 mg PO .COMPLEX #90 tab 04/20/20 [Rx Confirmed 04/26/20] metoprolol tartrate 25 mg tablet 50 mg PO BID tab 04/26/20 [History Confirmed 04/26/20] [facility] Medical History Subclavian artery stenosis, left (Resolved ~10/15/19) Essential hypertension (Chronic) Carotid artery stenosis (Chronic) Hyperlipidemia (Chronic) Atherosclerotic heart disease of [place] coronary artery without angina pectoris (Chronic) Premature atrial contractions (Acute) Atrial fibrillation and flutter (Chronic) custodial (current) use 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 (Acute) Right carotid bruit (Chronic) Thrombocytopenia (Acute) Ulcerative colitis (Acute) Upper GI bleed (Acute) Hematemesis/vomiting blood (Inactive) History of coronary artery disease (Inactive) Hypercholesterolemia (Inactive) Thrombocytopenia (Inactive) Ulcerative colitis (Inactive) Upper GI bleed (Inactive) Surgical History Aortocoronary bypass status (Resolved ~02/12/17) Status post insertion of drug-eluting stent into right coronary artery for coronary artery disease (Chronic ~04/2009) History of hand surgery (Resolved) History of vasectomy (Resolved) Family History Father CAD (coronary artery disease) Mother Cancer breast Social History (Updated 04/26/20 @ 13:16 by Sergio Jolly FOUNDATION ENGINEER, FOUNDATION ENGINEER-C) Smoking Status: Former smoker how long ago did patient quit smokin years ago alcohol intake: current alcohol intake frequency: 3 or more drinks per day Alcohol type: beer, wine, hard liquor substance use type: does not use caffeine: Yes Type: coffee Number of servings: 2 ROS Const Const: Positive for fatigue; negative for weakness, body ache, fever(s) or chills ENT ENT: Negative for dizziness Cardio Chest Pain: No Palpitations: No Edema: Bilateral Muscle aches with walking: None Resp Respiratory: Positive for SOB with activity; negative for SOB at rest, SOB orthopnea\SOB lying down or paroxysmal nocturnal dyspnea GI GI: Negative nausea, vomiting blood/hematemesis, bright, red blood in stools or black,tarry stools : Negative for hematuria or frequent nighttime urination/ nocturia Musc Musc: Negative for muscle aches/ myalgia Skin Skin: Negative non-healing lesions or rash Neuro Neuro: Negative for dizziness, lightheadedness, near syncope, syncope, orthostatic symptoms or weakness Endo Endo: Positive for fatigue Allergy Allergy/Immunology: Negative for rash Cardiology Exam Const Appearance: cooperative, healthy appearing, comfortable and no acute distress Nutritional Appearance: well nourished and overweight Orientation: alert, awake and oriented x3 Head Head: normal to inspection Ears: hearing grossly normal bilaterally Nose: external nose normal Face and Sinus: face symmetric Mouth: oral mucosae normal Eyes General: appearance normal, both eyes and all related structures Eyelids: eyelids normal EOM: EOM intact bilaterally Neck Neck: normal visual inspection and no JVD Carotids: normal carotid upstroke Chest Chest inspection: normal inspection of the chest, symmetric chest movement and normal respiratory effort; negative cough Auscultation: Bilateral: Diminished Lung Sounds Cardio Palpation: normal PMI Rate: regular rate Rhythm: irregular rhythm Heart sounds: S1 normal and S2 normal; negative rub or gallop GI GI: normal to inspection Neuro General: alert, awake, oriented x3 and CN's II-XI intact bilaterally Skin Skin: no rashes or lesions noted Extremities Pulses: Normal: Right Posterior Tibial Pulse, Left Posterior Tibial Pulse, Right Radial Pulse, Left Radial Pulse Lower Extremity Edema: +1: Bilateral (1+-2+) Psych Psychological: normal affect Assessment & Plan 1. Atherosclerosis of [place] coronary artery of [place] heart without angina pectoris I25.10 CABG x2- ZARAGOZA to LAD, Aorto post descending coronary artery to revers SVG 02/12/17; atherectomy to ostial RCA, LINDY to Prox/Mid RCA 04/2009 Plan Patient denies any chest pain, arm pain, jaw pain, neck pain, shortness of breath, or fatigue suggestive of angina at this time. We will continue to monitor this. We will not make any medication regimen changes and will continue risk factor modification. Orders Orders: Cardioversion Today 12 Lead EKG performed by BMS Today Basic Metabolic Profile (BMP) Today Prothrombin Time w/INR Today Chest PA and Lateral Today 2. Status post insertion of drug-eluting stent into right coronary artery for coronary artery disease Z95.5 atherectomy to ostial RCA, LINDY to Prox/Mid RCA 04/2009 Plan He will continue current medical therapy. He will continue risk factor and lifestyle modification. 3. Aortocoronary bypass status Z95.1 CABG x2- ZARAGOZA to LAD, Aorto post descending coronary artery to revers SVG 02/12/17 Plan He will continue current medical therapy. Orders Orders: Cardioversion Today 12 Lead EKG performed by BMS Today Basic Metabolic Profile (BMP) Today Prothrombin Time w/INR Today Chest PA and Lateral Today 4. Subclavian artery stenosis, left I77.1 left subclavian artery 6 mm x 22 mm iCast stent on 10-15-2019. Plan He is status post stenting. He will continue current medical therapy. 5. Atrial fibrillation and flutter I48.91; I48.92 Plan Patient does have a history of cardioversion in the past. His EKG today in office continues to show atrial fibrillation. His heart rate is well controlled at a rate of 63 bpm. His QTC is noted to be 439 and his QRS is noted be 104. His INR has been therapeutic on last 2 checks. He was asked to check his INR weekly until cardioversion to ensure stability. He will proceed with outpatient laboratory neurological testing. He will proceed with cardioversion. Hopefully, after cardioversion and maintaining sinus rhythm, his symptoms improved. We will not begin diuretic therapy as he has had intolerance to such medications at this time. He return to office approximately 1 week post cardioversion and 1 month post cardioversion to ensure symptoms are improving. Orders Orders: Cardioversion Today 12 Lead EKG performed by BMS Today Basic Metabolic Profile (BMP) Today Prothrombin Time w/INR Today Chest PA and Lateral Today 6. Essential hypertension I10 Plan Patient's blood pressure is well-controlled. We will continue to monitor. We will not make any medication regimen changes. Orders Orders: Cardioversion Today 12 Lead EKG performed by BMS Today Basic Metabolic Profile (BMP) Today Prothrombin Time w/INR Today Chest PA and Lateral Today 7. Hyperlipidemia, unspecified hyperlipidemia type E78.5 Plan Lipid panel from 04/19/2020 showed Cholesterol: 152, HDL: 86, LDL: 46, and Triglycerides: 101. He will continue current statin medication. 8. custodial (current) use 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 Z79.01 Plan He will take with Coumadin therapy maintaining an INR goal of 2?3. Orders Orders: Cardioversion Today 12 Lead EKG performed by BMS Today Basic Metabolic Profile (BMP) Today Prothrombin Time w/INR Today Chest PA and Lateral Today Plan Detail Other Medications Changed: From: metoprolol tartrate 25 mg PO BID 180 tabs 4RF To: metoprolol tartrate 50 mg PO BID Additional Comments Thank you for allowing us to participate in the patients plan of care, if you have any questions please do not hesitate to call. This note was generated using a voice recognition system and there may be incorrect words, spelling or punctuation that were not noted when reviewing the office note prior to saving. Follow Up 1 Month (FOUNDATION ENGINEER/PA) 6-10 Months (PFM) 1 Week DCC ECG Visit Coding Level of Care Code Off vis,est,level 4 Diagnoses Atherosclerosis of [place] coronary artery of [place] heart without angina pectoris I25.10 ??[place] vs. 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 Contrast injection was performed. Segmental dysfunction with preserved ejection fraction (see wall motion). The estimated ejection fraction is 65 %. The left atrium is moderately enlarged. The right atrium is mildly enlarged. There is mild to moderate mitral annular calcification. Extension of the mitral annular calcification onto the posterior mitral valve leaflet. Mild focal mitral valve calcification, bileaflet. Moderate (2+) eccentric mitral valve insufficiency. Mild to moderate (1-2+) tricuspid valve insufficiency. Trivial pulmonic valve insufficiency. Right ventricular systolic pressure estimated to be 46 mmHg c/w pulmonary hypertension. Echocardiogram: 09-08-2019 Interpretation Summary The study was technically difficult. Segmental dysfunction with preserved ejection fraction (see wall motion). The estimated ejection fraction is 65 %. Moderate to severe left atrial enlargement. The right atrium is mildly enlarged. There is moderate mitral annular calcification. Extension of the mitral annular calcification onto the mitral valve leaflets. Mild focal mitral valve calcification of the anterior leaflet. Moderate (2+) mitral valve insufficiency. Moderate (2+) eccentric tricuspid valve insufficiency. Right ventricular systolic pressure estimated to be 67 mmHg. Unable to assess diastolic dysfunction. He had a ROSI performed at [facility] on 02/17/2017 Conclusions 1. Difficult intubation 2. No LA, GUERO or RA thrombus or spontaneous contrast. 3. Normal LV size and systolic function with an EF of 65% 4. Normal RV size and function. 5. There is moderate mitral annular calcification. There s moderate mitral regurgitation. 6. There is mild tricuspid regurgitation. 7. No right to left shunt 8. 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 He had a stress test performed at [facility] on 05/16/2017 The patient exercised on a William protocol for 6 minutes completing stage II achieving a peak heart rate of 104 bpm (71% predicted maximal heart rate) with a peak blood pressure 186/84 mmHg and a peak MET capacity of 7 Mets. The baseline ECG demonstrated normal sinus rhythm with poor R-wave progression and nonspecific ST and T-wave abnormality. The peak exercise ECG demonstrated somatic/motion artifact with continued nonspecific ST and T-wave abnormality. There was no cardiac dysrhythmias pretest, during exercise, or recovery. The functional capacity was considered average. There was no report of chest discomfort during exercise or recovery. The examination was discontinued secondary to dyspnea and leg discomfort. Impression: 1. Technically inadequate (percent predicted maximal heart rate less than 71%) exercise tolerance test 2. Peak exercise ECG was somatic/motion artifact with continued nonspecific ST and T-wave abnormality He had a cardiac catheterization performed at [facility] on 05/12/2009 Stress Test Report Date: 09-08-2019 Procedure: Pharmacologic stress nuclear imaging study Indications: This of breath/dyspnea on exertion; CAD; PCI; CABG; atrial fibrillation Consent: Per the patient Procedure: The patient underwent pharmacologic (Regadenoson) evaluation with a peak heart rate of 114 beats per minute (80 %predicted maximal heart rate) and a peak blood pressure of 160/90 mmHg. The baseline ECG demonstrated atrial fibrillation; poor R wave progression; nonspecific T wave abnormality. The peak pharmacologic ECG demonstrated no obvious ECG changes. There were no cardiac dysrhythmias pretest, during pharmacologic infusion, or recovery. There was no complaint of chest discomfort during pharmacologic infusion or recovery. The examination was discontinued secondary to completion of protocol. Impression: 1. Pharmacologic (Regadenoson) evaluation 2. Peak pharmacologic ECG with continued atrial fibrillation with poor R wave progression with nonspecific T wave abnormality. 3. There were no cardiac dysrhythmias pretest, during pharmacologic infusion, or recovery. 4. Nuclear images pending Myocardial perfusion imaging study: Technique: The patient was injected with 11.0 millicuries of technetium 99m Cardiolite and subsequently rest SPECT Cardiolite nuclear imaging was obtained in the horizontal long, vertical long, and short axis views. The patient underwent pharmacologic (Regadenoson) evaluation with a peak heart rate of 114 beats per minute (80 % percent predicted maximal heart rate) and a peak blood pressure of 160/90 mmHg. The patient was injected with 33.0 millicuries of technetium 99m Cardiolite and subsequently stress SPECT Cardiolite nuclear imaging was obtained in the horizontal long, vertical long, and short axis views. A gated Cardiolite study at peak stress was obtained. Interpretation: Rest and stress SPECT Cardiolite nuclear imaging status post realignment, normalization, and attenuation correction demonstrate rest the appearance of relative uniform tracer uptake and myocardial perfusion appearing within normal limits. Status post stress there is notation of diminished myocardial perfusion/tracer uptake in portions of the mid inferoseptal/mid inferior segments. There is end systolic thickening and brightening. The gated Cardiolite study demonstrates myocardial thickening and inward wall motion. The reported LVEF is 65 %. Impression: 1. Rest and stress SPECT Cardiolite nuclear imaging demonstrate myocardial perfusion changes concerning for an area of stress-induced myocardial ischemia in portions of the mid inferior septal/mid inferior segments. 2. The gated Cardiolite study reports an LVEF of 65 %. Cardiac catheterization: 2008 FINAL IMPRESSION 1. Elevated left ventricular end-diastolic pressure compatible with decreased diastolic compliance. 2. Left ventricle. A. Normal left ventricle size, wall motion, and systolic function. B. Estimated left ventricle ejection fraction of 65%, C. Finding suggestive of concentric left ventricular hypertrophy. D. Finding suggest of a somewhat spade-shaped left ventricle 3. Left main: A. Mild calcifications. B. lo angiographically significant appearing disease. 4. Left anterior descending: A. Proximal mild calcification. B. Ostial 50 to 75% concentric appearing Stenosis. C. The remainder of the vessel with minimal luminal irregularities. 5. Left circumflex coronary artery: Minimal luminal irregularities. 6. Right coronary artery: A. Large dominant vessel. B. Ostial/proximal significant calcification creating an eccentric-appearing lesion. C. Ostial 75% appearing stenosis. D. Proximal 25 to 50% appearing stenosis. E. Mid 25 to 50% eccentric appearing Stenosis. F. Distal 25% appearing stenosis. 7. Aortic root: Possible dilatation. He had a PCI performed at [facility] on 05/17/2009 At that time he had FELECIA of the LAD which showed no significant disease in the ostial LAD Successful rotational atherectomy to the ostial RCA Successful LINDY placement in the proximal and mid RCA He eventually underwent repeat evaluation at [facility] which led to open heart surgery on 03/10/2017 at which time he received a ZARAGOZA to the LAD and an SVG to the PDA He had a carotid artery duplex study performed on 11/01/2015 at [facility] Interpretation Summary Mild (<50%) stenosis right extracranial internal carotid. Moderate (50-69%) stenosis left extracranial internal carotid. Flow within the right vertebral artery is antegrade. Flow within the left vertebral artery is bidirectional, consistent with subclavian steal phenomenon. Labs LDL Cholesterol 46 mg/dL (0-130) 04/19/20 HDL Cholesterol 86 mg/dL (40-) 04/19/20 Triglycerides 101 mg/dL (-199) 04/19/20 VLDL Cholesterol 20 mg/dL (5-40) 04/19/20 Diagnostics Electrocardiogram 02/15/16 Echocardiogram 09/08/19 Stress Test Nuclear Medicine 09/08/19 Stress Test 09/08/19 Chest X-Ray 08/29/16 I have re-examined the patient. There are no clinical changes since date of exam.
--- NOTE | 2020-05-09 12:17 | CARDIOVERS_ITS ---
Cardioversion Cardioversion: Date: 05-09-2020 Procedure: Synchronized Biphasic DC Cardioversion Indications: Atrial flutter Consent: Per the Patient Anesthesia: per Dr. Dawson of pulmonology and critical care medicine with propofol 70 mg IV push total Procedure: Synchronized Biphasic DC Cardioversion: 50 J x 1: Result: Sinus rhythm Complications: no apparent complications This note was generated with [employer] software. It may contain incorrect words, spelling, and punctuation that were not noted in checking the note before signing.
--- NOTE | 2020-05-09 12:50 | PRO.PCM_ITS ---
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 (4) Atrial fibrillation and flutter Status: Chronic (5) Carotid artery stenosis Status: Chronic Qualifiers: (6) Essential hypertension Status: Chronic (7) Hyperlipidemia Status: Chronic Qualifiers: (8) Right carotid bruit Status: Chronic (9) Status post insertion of drug-eluting stent into right coronary artery for coronary artery disease Status: Chronic Comment: atherectomy to ostial RCA, LINDY to Prox/Mid RCA 04/2009 (10) Aortocoronary bypass status Status: Resolved Comment: CABG x2- ZARAGOZA to LAD, Aorto post descending coronary artery to revers SVG 02/12/17 (11) Subclavian artery stenosis, left Status: Resolved Comment: left subclavian artery 6 mm x 22 mm iCast stent on 10-15-2019. Procedure Report Date of Procedure: 05/09/20 - Conscious sedation CONSCIOUS SEDATION REPORT BRIEF HISTORY OF PRESENT ILLNESS: The patient is a 79-year-old male who presented to [facility] for an elective outpatient cardioversion due to underlying atrial fibrillation. The patient reports no PO intake since midnight. The patient does have a history of obstructive sleep apnea. The patient reports a history of smoking, but denies COPD. The patient denies any recent constitutional symptoms such as fevers, chills, nausea or vomiting. The patient denies previous anesthetic complications. Past last known ejection fraction was 65%. INR on the day of the procedure was noted at 4. PHYSICAL EXAMINATION: VITAL SIGNS: Reviewed and were acceptable. GENERAL: The patient is a male, in no apparent distress, speaking in full sentences. HEENT: Normocephalic, atraumatic. Mucous membranes are moist and pink. Good mouth opening noted. Trachea is midline. Good neck mobility. MP IV. Right scleral injection noted CHEST: S1, S2 irregularly irregular. No murmurs, rubs or gallops were noted. LUNGS: Clear to auscultation bilaterally without appreciable wheezes, rales or rhonchi. ABDOMEN: Soft, nontender, nondistended. Positive bowel sounds. EXTREMITIES: There is no clubbing, cyanosis or edema. ASA Class: II DESCRIPTION OF PROCEDURE: After confirmation of informed consent, the patient's anesthesia plan was reviewed in detail. Propofol was chosen. Risks and benefits were reviewed and the patient agreed to proceed. At 11:58 AM, the patient was given 40 mg of propofol. The patient required a total of 70 mg of propofol throughout the procedure to achieve appropriate sedation. The patient achieved an appropriate level of sedation and received 1 attempt synchronized cardioversion, at [address] Borges at the bedside. This was successful in achieving normal sinus rhythm. The patient was monitored until 12:15 PM, at which time the patient reached their baseline mental status and function. The patient tolerated the procedure well. COMPLICATIONS: None ESTIMATED BLOOD LOSS: None RECOMMENDATIONS: Okay to recover in usual fashion. [id number]: Other Procedure See Report - [id number]
== END 2020-05-09 13:10 | disposition home or self-care (01) ==
PROVIDERS: PCP Family Medicine; Referring Provider Internal Medicine Cardiovascular Disease; Visit Provider Internal Medicine Cardiovascular Disease
DX: I25.10 Atherosclerotic heart disease of native coronary artery without angina pectoris (principal); I48.0 Paroxysmal atrial fibrillation; I48.92 Unspecified atrial flutter; E78.5 Hyperlipidemia, unspecified; I10 Essential (primary) hypertension; R06.02 Shortness of breath; R60.0 Localized edema; I77.1 Stricture of artery; R09.89 Other specified symptoms and signs involving the circulatory and respiratory systems; G47.33 Obstructive sleep apnea (adult) (pediatric); Z79.899 Other long term (current) drug therapy; Z79.01 Long term (current) use 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; Z95.1 Presence of aortocoronary bypass graft; Z79.82 Long term (current) use of aspirin; Z87.891 Personal history of nicotine dependence
CPT/HCPCS: 36416; 85610; 92960; 93005; J7040

== ENCOUNTER 2020-05-19 13:44 | Outpatient (RCR) | payer MEDICARE, OTHER, SELFPAY ==
[2020-04-26 11:00] VITALS: BMI 26.9
[2020-05-08 11:34] VITALS: BMI 26.9
== END 2020-05-19 18:00 | disposition home or self-care (01) ==
LOC: MTLAB 13:44
PROVIDERS: Family Provider Family Medicine; PCP Family Medicine; Referring Provider Internal Medicine Cardiovascular Disease; Visit Provider Internal Medicine Cardiovascular Disease
DX: I48.91 Unspecified atrial fibrillation (principal); I48.92 Unspecified atrial flutter; Z79.01 Long term (current) use 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
CPT/HCPCS: 36416; 85610

== ENCOUNTER → 2020-05-26 08:01 | Outpatient (CLI) | payer MEDICARE, OTHER, SELFPAY ==
[2020-05-22 10:54] VITALS: BMI 25.1
--- NOTE | 2020-05-26 16:14 | PFTCOMP ---
COMPLETE PULMONARY FUNCTION TEST INTERPRETATION Brief HPI: Patient is a 79 year old male, currently under the care of Dr. Borges, who presents to [facility] for complete pulmonary function tests secondary to diagnosis of high risk med use. Respiratory therapist reports good effort and reproducible results. Interpretation: Forced expiration spirometry shows a moderate large airways obstructive ventilatory defect with an FEV1 of 67% predicted. There is no significant bronchodilator response by strict ATS criteria. Spirograms are of good quality and plateau slowly, indicating slowly emptying areas of the lungs. The respiratory flow volume loop shows decreased expiratory flow rates at all lung volumes consistent with airway obstruction. Lung volumes by body plethysmography show a decreased total lung capacity at 4.5 L, 68% predicted. All other lung volumes are reduced symmetrically. Diffusion capacity by carbon monoxide is normal at 71% predicted. The airway resistance is elevated. No previous pulmonary function tests were available for review. Impression: Moderate mixed ventilatory defect with a symmetric reduction diffusion capacity and no comparison available.
== END ==
PROVIDERS: PCP Family Medicine; Referring Provider Physician Assistant Medical; Visit Provider Physician Assistant Medical
DX: I25.10 Atherosclerotic heart disease of native coronary artery without angina pectoris (principal); I48.91 Unspecified atrial fibrillation; I48.92 Unspecified atrial flutter; I10 Essential (primary) hypertension
CPT/HCPCS: 36415; 80048; 84439; 84443; 84481; 94060; 94726; 94729

== ENCOUNTER → 2020-05-26 09:43 | Outpatient (CLI) | payer MEDICARE, OTHER, SELFPAY ==
[2020-05-22 10:54] VITALS: BMI 25.1
[2020-05-26 12:56] LABS: Anion Gap 5 (5-15); BUN 37 mg/dL (7-18); BUN/Creat Ratio 20.2 RATIO (10-20); Calcium,Total 9.3 mg/dL (8.5-10.1); Chloride 107 mmol/L (98-107); Creatinine, Serum 1.83 mg/dL (0.70-1.30); EST Glomerular Filtration Rate 38 mL/min (>60); Est Glom Filt Rate - Afr Amer 46 mL/min (>60); Glucose 99 mg/dL (74-106); Potassium 4.9 mmol/L (3.5-5.1); Sodium Level 140 mmol/L (136-145); T4 Free Direct 1.02 ng/dL (0.76-1.46); Thyroid Stim Hormone (TSH) 6.81 uIU/mL (0.358-3.74)
== END ==
PROVIDERS: PCP Family Medicine; Referring Provider Physician Assistant Medical; Visit Provider Physician Assistant Medical
DX: I25.10 Atherosclerotic heart disease of native coronary artery without angina pectoris (principal); I48.91 Unspecified atrial fibrillation; I48.92 Unspecified atrial flutter; I10 Essential (primary) hypertension
CPT/HCPCS: 36415; 80048; 84439; 84443; 84481

== ENCOUNTER 2020-06-16 14:25 | Outpatient (RCR) | payer MEDICARE, OTHER, SELFPAY ==
[2020-05-22 10:54] VITALS: BMI 25.1
[2020-06-12 11:01] LABS: Prothrombin Time Fingerstick 48.8 SEC (11.9-14.4)
[2020-06-16 14:36] LABS: Prothrombin Time Fingerstick 29.6 SEC (11.9-14.4)
== END 2020-06-16 18:00 | disposition home or self-care (01) ==
LOC: MTLAB 14:25
PROVIDERS: Family Provider Family Medicine; PCP Family Medicine; Referring Provider Internal Medicine Cardiovascular Disease; Visit Provider Internal Medicine Cardiovascular Disease
DX: I48.91 Unspecified atrial fibrillation (principal); I48.92 Unspecified atrial flutter; Z79.01 Long term (current) use 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
CPT/HCPCS: 36416; 85610

== ENCOUNTER 2020-07-03 14:41 | Outpatient (RCR) | payer MEDICARE, OTHER, SELFPAY ==
[2020-05-22 10:54] VITALS: BMI 25.1
[2020-07-03 15:05] LABS: Prothrombin Time Fingerstick 49.5 SEC (11.9-14.4)
[2020-07-03 18:03] LABS: Prothrombin Time (Protime)PT. 38.5 SECONDS (11.7-14.9)
== END 2020-07-03 18:00 | disposition home or self-care (01) ==
LOC: MTLAB 14:41
PROVIDERS: Family Provider Family Medicine; PCP Family Medicine; Referring Provider Internal Medicine Cardiovascular Disease; Visit Provider Internal Medicine Cardiovascular Disease
DX: I48.91 Unspecified atrial fibrillation (principal); I48.92 Unspecified atrial flutter; Z79.01 Long term (current) use 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
CPT/HCPCS: 36415; 36416; 85610

== ENCOUNTER 2020-08-28 08:53 | Outpatient (RCR) | payer MEDICARE, OTHER, SELFPAY ==
[2020-05-22 10:54] VITALS: BMI 25.1
== END 2020-08-28 23:59 ==
LOC: IMMUN 08:53
PROVIDERS: PCP Family Medicine; Visit Provider Family Medicine
DX: Z23 Encounter for immunization (principal)
CPT/HCPCS: 0011A; 0012A

== ENCOUNTER → 2020-09-07 16:18 | Outpatient (CLI) | payer MEDICARE, OTHER, SELFPAY ==
[2020-09-07 15:12] VITALS: BMI 27.4
--- NOTE | 2020-09-07 16:22 | RAD_ITS ---
STUDY: X-RAY CHEST REASON FOR EXAM: Male, 80 years old. Shortness of breath. TECHNIQUE: PA and lateral views of the chest. COMPARISON: 04/28/2020 FINDINGS: There is a large right pleural effusion and atelectasis. Ill-defined density in the periphery of the left perihilar lung. Sternal cerclage wires are present from a prior sternotomy. The heart is normal in size. Normal mediastinum and aidan. Normal visualized pulmonary arteries. There is atherosclerotic calcification of the aortic arch with tortuosity. There are diffuse degenerative changes of the visualized thoracic spine. 2 There is no demonstrated abnormality of the visualized soft tissue structures of the upper abdomen. RAD/Chest PA and Lateral IMPRESSION: 1. Large right pleural effusion and atelectasis not previously noted. 2. Wedgelike area of density in the peripheral left mid lung. Question pneumonia. This was not previously noted. 3. Stable median sternotomy. Electronically Signed: Shane Moreira DO at 21:59 EST Tel [phone], Service support ,
[2020-09-07 17:18] LABS: Absolute Lymphocyte Count 0.31 X10^3/uL (0.83-4.51); Absolute Neutrophil Count 11.1 X10^3/uL (2.0-7.7); Basophil# 0.03 X10^3/uL; Basophil% 0.2 % (0-1); Hematocrit 35.3 % (40-54); Hemoglobin 11.5 g/dL (13.0-16.5); Lymphocyte # 0.31 X10^3/ul (4.0); Lymphocyte % 2.5 % (19-41); Mean Corp Hgb Conc 32.6 g/dL (32-36); Mean Corpuscular Hgb 32.9 pg (27.0-32.0); Mean Corpuscular Volume 100.9 fL (80-94); Mean Platelet Vol. 10.1 fl (6.2-12.0); Monocyte# 0.99 X10^3/uL; Monocyte% 7.9 % (0-10); NRBC Flagged by Analyzer 0 % (0-5); Neutrophil # 11.08 X10^3/uL (2.7-7.7); POSITIVE DIFFERENTIAL YES; POSITIVE MORPHOLOGY YES; Platelet Count 167 K/mm3 (150-450); RBC Distribution Width CV 13.8 % (11.6-14.6); RBC Distribution Width SD 51.1 fl (35.1-43.9); White Blood Count 12.5 K/mm3 (4.4-11.0)
[2020-09-07 17:31] LABS: Differential Indicated SCAN CRITERIA MET
[2020-09-07 17:52] LABS: BNP,B-Type NATRIURETIC PEPTIDE 365.1 pg/mL (0-100)
[2020-09-07 18:02] LABS: Anion Gap 11 (5-15); BUN 76 mg/dL (7-18); BUN/Creat Ratio 24.5 RATIO (10-20); Calcium,Total 9.7 mg/dL (8.5-10.1); Chloride 105 mmol/L (98-107); EST Glomerular Filtration Rate 21 mL/min (>60); Est Glom Filt Rate - Afr Amer 25 mL/min (>60); Glucose 137 mg/dL (74-106); Magnesium 2.4 mg/dL (1.6-2.6); Potassium 3.9 mmol/L (3.5-5.1); Sodium Level 139 mmol/L (136-145)
== END ==
PROVIDERS: PCP Family Medicine; Referring Provider Nurse Practitioner Family; Visit Provider Nurse Practitioner Family
DX: R06.00 Dyspnea, unspecified (principal); I25.10 Atherosclerotic heart disease of native coronary artery without angina pectoris; I49.1 Atrial premature depolarization; I48.91 Unspecified atrial fibrillation; I48.92 Unspecified atrial flutter; Z79.01 Long term (current) use 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
CPT/HCPCS: 36415; 71046; 80048; 83735; 83880; 85025

== ENCOUNTER 2020-09-11 11:28 | Emergency (ER) | payer MEDICARE, OTHER, SELFPAY ==
[2020-09-07 15:12] VITALS: BMI 27.4
[2020-09-11 11:32] VITALS: BP 137/75; PULSE 88; RESP 24; TEMP 36.6; O2SAT 94; BMI 25.9
--- NOTE | 2020-09-11 12:01 | EKG12_ITS ---
Test Reason : GEN WEAKNESS Blood Pressure : / mmHG Vent. Rate : 077 BPM Atrial Rate : 214 BPM P-R Int : 000 ms QRS Dur : 118 ms QT Int : 406 ms P-R-T Axes : 000 -26 -64 degrees QTc Int : 459 ms Atrial flutter with variable A-V block Left ventricular hypertrophy with QRS widening and repolarization abnormality Abnormal ECG Confirmed by RUBÉN WATSON, ALPESH ([id number]), purchase request editor YOBANY COLLINS ([id number]) on 09/13/2020 10:07:48 AM Referred By: ECTOR Confirmed By:ALPESH MONTANA MD
--- NOTE | 2020-09-11 12:02 | ED.DCSUM_ITS ---
- ER Visit Summary Date of Service: 09/11/20 Chief Complaint: Worsening shortness of breath and generalized weakness History of Present Illness: The patient is a 80 M history of CAD, hypertension, high cholesterol, renal insufficiency, cardiac stents and A. fib. He previously was on Eliquis but stopped that on Friday. He was scheduled to have an outpatient thoracentesis done for pleural effusion but he said he just feels worse all over. He is more short of breath. And is just weak all over. He den ies any nausea, vomiting, diarrhea or fever. He denies any melena or chest pain. Physical Examination: Older male coming by his vital signs stable afebrile. Pulse ox 94% on room air no signs of hypoxia. H EENT exam unremarkable. Neck nontender no JVD. Lungs few scattered wheezes. No rales or rhonchi. Equal symmetrical. Heart is atrial flutter at around 88.. Abdomen soft nontender normal bowel sounds no peritoneal signs. Patient moving all 4 extremities. 1+ pitting edema both lower extremities. Calves nontender. Neurologically is awake alert with no focal motor deficits. Test Results: A portable 1 view as interpreted by myself shows a large right pleural effusion basically a white out on the right. Prior sternotomy. Left lung field unremarkable. Normal cardiac silhouette. EKG atrial flutter rate of 71. No acute signs of [place] or ischemia. CBC white count of 13 hemoglobin 11 which is his baseline chronic anemia. Platelet count of 134,000. Chemistries unremarkable gap of 8. BUN and creatinine is 78 and 2.3 which is his baseline renal insufficiency. PT/INR of 17 and 1.5. Radiology be notified he is ready for his thoracentesis. Postthoracentesis they removed 2 L of fluid. Post procedure chest x-ray is read by the radiologist and reviewed by me showed no pneumothorax. Repeat exam at 2:35 PM patient is doing well. He has bilateral breath sounds. He is resting comfortably. He feels clear to be discharged home. Emergency Department Course and Treatment: Male with reported pleural effusion sent in to be evaluated and if possible obtain a thoracentesis through interventional radiology. They want screening labs and a PT/INR prior to the procedure. Treatment Plan: Follow-up with his primary care physician Dr. Rosa Maria Santacruz. Return if feeling worse. Disposition: discharge Impression: Acute right large pleural effusion Ultrasound-guided right thoracentesis done by radiologist History of atrial flutter This note was generated with [employer] dictation software. It may contain incorrect words, spelling, and punctuation that were not noted in review of the chart prior to signing ED Disposition - Plan for ED Patient: Referrals: Rosa Maria Santacruz MD [Primary Care Provider] -
[2020-09-11 12:29] LABS: Absolute Neutrophil Count 12.3 X10^3/uL (2.0-7.7); Basophil# 0.02 X10^3/uL; Basophil% 0.1 % (0-1); Hematocrit 36.1 % (40-54); Hemoglobin 11.7 g/dL (13.0-16.5); Lymphocyte % 2.2 % (19-41); Mean Corp Hgb Conc 32.4 g/dL (32-36); Mean Corpuscular Hgb 33.1 pg (27.0-32.0); Mean Platelet Vol. 10.6 fl (6.2-12.0); Monocyte# 1.21 X10^3/uL; Monocyte% 8.7 % (0-10); NRBC Flagged by Analyzer 0 % (0-5); Neutrophil # 12.28 X10^3/uL (2.7-7.7); Neutrophil % 88.4 % (47-70); POSITIVE DIFFERENTIAL YES; Platelet Count 134 K/mm3 (150-450); RBC Distribution Width SD 52.9 fl (35.1-43.9); Red Blood Count 3.54 M/mm3 (4.6-6.2); White Blood Count 13.9 K/mm3 (4.4-11.0)
--- NOTE | 2020-09-11 12:30 | RAD_ITS ---
STUDY: X-RAY CHEST REASON FOR EXAM: Male, 80 years old. dyspnea TECHNIQUE: Single AP portable view of the chest. COMPARISON: 09/07/2020 FINDINGS: Status post median sternotomy. Decrease in alveolar opacity in mid left lung consistent with improving pneumonia. No change in the large right pleural effusion with right lower lobe atelectasis. Normal size heart. Normal mediastinum and aidan. Normal visualized pulmonary arteries. Normal visualized aortic arch and descending thoracic aorta. Normal visualized thoracic spine. Normal visualized ribs, clavicles, and shoulders. There is no demonstrated abnormality of the visualized soft tissue structures of the upper abdomen. RAD/Chest 1 View (Portable) IMPRESSION: 1. Improved left-sided of focal pneumonia. 2. No change in large right pleural effusion with right lower lobe atelectasis Electronically Signed: Mayank Haddad MD at 12:45 EDT Tel , Service support ,
[2020-09-11 12:31] LABS: Differential Indicated SCAN CRITERIA MET
[2020-09-11 12:40] LABS: International Normalized Ratio 1.5; Prothrombin Time (Protime)PT. 17.2 SECONDS (11.7-14.9)
[2020-09-11 12:43] LABS: Anion Gap 8 (5-15); BUN 78 mg/dL (7-18); BUN/Creat Ratio 33.5 RATIO (10-20); Calcium,Total 9.4 mg/dL (8.5-10.1); Chloride 110 mmol/L (98-107); Creatinine, Serum 2.33 mg/dL (0.70-1.30); EST Glomerular Filtration Rate 29 mL/min (>60); Est Glom Filt Rate - Afr Amer 35 mL/min (>60); Estimated Creatinine Clearance 27.38 ml/min; Glucose 141 mg/dL (74-106); Potassium 3.6 mmol/L (3.5-5.1); Sodium Level 142 mmol/L (136-145)
[2020-09-11 12:48] LABS: Platelet Estimate SLT DEC (ADEQ)
[2020-09-11 12:49] LABS: Differential Comment SCANNED
[2020-09-11 12:53] VITALS: BP 122/59; PULSE 77; RESP 16; TEMP 36.7; O2SAT 94
--- NOTE | 2020-09-11 13:10 | US_ITS ---
PROCEDURE: ULTRASOUND GUIDED THORACENTESIS. DATE: 09/11/2020.. INDICATION: Male, 80 years old. Right pleural effusion. PHYSICIAN: Apolinar Rosen M.D. PROCEDURE: The risks, benefits, and alternatives to the procedure were explained to the patient. The specific risks of bleeding, infection, and pneumothorax requiring chest tube insertion were discussed and accepted. Written informed consent was obtained. Ultrasonographic evaluation of the right lower pleural space was carried out. An adequate pocket was identified. The patient was placed in the sitting, upright position. The overlying skin was prepped and draped in sterile fashion. 1% lidocaine was administered subcutaneously for local anesthesia. Under ultrasound guidance, a 5 Irish thoracentesis needle/catheter system was advanced into the right posterior lower pleural fluid collection. Approximately 2050 mL of purulent fluid was drained. The catheter was removed, and a sterile dressing was applied. A specimen was collected and sent to the laboratory for analysis, as requested by the referring clinician. The patient tolerated the procedure well. A chest x-ray was ordered. US/Thoracentesis W US IMPRESSION: Ultrasound-guided right thoracentesis. Electronically Signed: Apolinar Rosen MD at 14:33 EDT , Service support ,
[2020-09-11 13:25] VITALS: BP 115/57; BP 123/65; BP 131/69; PULSE 84; PULSE 88; RESP 20; O2SAT 93; O2SAT 94; O2SAT 95
--- NOTE | 2020-09-11 13:53 | RAD_ITS ---
STUDY: X-RAY CHEST REASON FOR EXAM: Male, 80 years old. POST THORACENTESIS TECHNIQUE: Single AP portable view of the chest. COMPARISON: 09/11/2020 at 1224 FINDINGS: The lungs are clear and expanded. There is a decrease in the size of the right-sided pleural effusion with still the opacity in the lower right hemithorax which may be secondary to an elevated diaphragm or loculated effusion. Correlation with CT would be useful. No pneumothorax. Normal size heart. Normal mediastinum and aidan. Normal visualized pulmonary arteries. Normal visualized aortic arch and descending thoracic aorta. Normal visualized thoracic spine. Normal visualized ribs, clavicles, and shoulders. There is no demonstrated abnormality of the visualized soft tissue structures of the upper abdomen. RAD/Chest Insp/Exp 2 View IMPRESSION: Persistent right-sided pleural effusion or elevated right hemidiaphragm. No pneumothorax after thoracentesis. Electronically Signed: Mayank Haddad MD at 14:05 EDT Tel , Service support ,
--- NOTE | 2020-09-11 13:55 | FLU_PTH ---
PATIENT: EULOGIO NOGUERA LOC: ED U#:[id number] AGE/SX: 80/M ROOM: RE09/11/[address]: Dr. Charles Patel MD : [id number] BED: DIS: 09/11/2020 SPEC #: [id number] RECD: 09/11/20 13:58 STATUS: KANDICE REMarlene #: [id number] AMBROSE: 09/11/20 13:[address]: Charles Patel DEPT: CYTOLOGY RECD BY: Anais Roper ENTERED: 09/12/20 07:40 SP TYPE: Fluid OTHR DR: Dr. Rosa Maria Santacruz MD Tissues: THORACIC FLUID Procedures: Special Stain Group II Surgery Specimen Level IV Cytospin Fluid HEADER OPERATION: Right thoracentesis PRE-OP DIAGNOSIS: Pleural effusion TISSUE SUBMITTED: Thoracentesis fluid for cytology DIAGNOSIS CYTOLOGY Thoracentesis fluid for cytology (cytospin and cell block): Negative for malignant cells. Acute inflammation. Bacterial colonies. AM:janusz 09/13/2020 CYTOLOGY STUDY Slides are reviewed. CYTOLOGY GROSS Received is 90 ml of [id number] cloudy fluid labeled with the patient's name and and designated per the requisition as thoracentesis. Submitted for cytology preparation including cell block. / janusz 09/12/2020 TC:2 CPT: 73986, 15931
[2020-09-11 14:03] LABS: Cytology, Body Fluid / CSF SEE PATHOLOGY REPORT
[2020-09-11 14:05] VITALS: BP 91/66; PULSE 86; RESP 19; O2SAT 94
[2020-09-11 14:42] LABS: Body Fluid Mononuclear WBC # 1.305 10^3/uL; Body Fluid Mononuclear WBC % 57.8 %; Body Fluid Polynuclear WBC # 0.954 10^3/uL; Body Fluid Polynuclear WBC % 42.2 %
--- NOTE | 2020-09-11 14:43 | ED.DEP ---
ED Disposition - Plan for ED Patient: Disposition: Home or Assisted Living Instructions: ED Pleural Effusion Referrals: Rosa Maria Santacruz MD [Primary Care Provider] - As Needed Additional Instructions: The radiology department drained around 2 L of fluid from your right lung field. That procedure was called a thoracentesis. Return if you are feeling worse, more short of breath or develop a fever. Otherwise follow-up with your primary care physician. You may restart your blood thinner Eliquis tomorrow.
[2020-09-11 14:51] LABS: Appearance/Body Fluid TURBID; Auto B Fluid Analyzer BKGD Ct COUNTS W/IN LIMITS (W/IN LIMITS); Color/Body Fluid YELLOW; Source- Body Fluid THORACENTESIS
[2020-09-11 14:53] VITALS: BP 121/66; PULSE 84; RESP 17; TEMP 36.6; O2SAT 94
--- NOTE | 2020-09-11 14:54 | ED.RN ---
REVIEWED D/C INSTRUCTIONS, FOLLOW UP CARE, AND S/S THAT WOULD WARRANT A RETURN TO THE ED WITH PT. PT VERBALIZED AN UNDERSTANDING AND DENIES FURTHER QUESTIONS FOR THIS RN. PT SKIN P/W/D, RESP EVEN AND UNLABORED, PT A&O X 3, NO DISTRESS NOTED. PT ASSISTED OUT OF ED IN WHEELCHAIR.
[2020-09-11 15:16] LABS: Lymphocytes 13 %; Monocytes 63 %; Neutrophil (Segs) 24 %
[2020-09-11 15:18] LABS: Body Fluid QC Type(s) BF1Q
[2020-09-11 16:10] LABS: LDH,Body Fluid > 4000 Units/l (Not Establ.); Protein, Body Fluid 1.7 g/dL (Not Establ.)
[2020-09-11 16:52] VITALS: BP 128/56; PULSE 86; RESP 16; O2SAT 95
--- NOTE | 2020-09-11 17:12 | ED.RN ---
report called to magen santoyo at [facility] [phone].
[2020-09-12 12:01] LABS: Pathologist Comment/Body Fluid Reviewed
== END 2020-09-11 19:07 | disposition home or self-care (01) ==
PROVIDERS: Nurse Practitioner Family; Emergency Provider Emergency Medicine; PCP Family Medicine
DX: J90 Pleural effusion, not elsewhere classified (principal); I25.10 Atherosclerotic heart disease of native coronary artery without angina pectoris; I48.92 Unspecified atrial flutter; I48.91 Unspecified atrial fibrillation; I10 Essential (primary) hypertension; E78.00 Pure hypercholesterolemia, unspecified; Z95.5 Presence of coronary angioplasty implant and graft; Z79.82 Long term (current) use of aspirin
CPT/HCPCS: 32555; 71045; 71046; 80048; 83615; 84157; 85025; 85610; 87070; 87075; 87077; 87186; 87205; 88108; 88305; 88313; 89050; 93005; 96365; 99285; A4216

== ENCOUNTER → 2020-09-22 13:59 | Outpatient (CLI) | payer MEDICARE, OTHER, SELFPAY ==
[2020-09-11 11:32] VITALS: BMI 25.9
[2020-09-22 14:05] VITALS: BP 112/44; PULSE 56; RESP 18; TEMP 35.6; O2SAT 95; BMI 24.8
[2020-09-22] MEDS: 0.9% NaCl IVPB Med Flush (250 mL) 15 ML IV (14:09)
[2020-09-22] MEDS: 0.9% NaCl PICC Flush IV ×2 (14:09→14:56)
[2020-09-22 14:58] VITALS: BP 118/67; PULSE 60
== END ==
PROVIDERS: PCP Family Medicine
DX: J86.9 Pyothorax without fistula (principal)
CPT/HCPCS: 96365; J7050; A4216; J0696

== ENCOUNTER 2020-09-23 13:55 | Outpatient (CLI) | payer MEDICARE, OTHER, SELFPAY ==
[2020-09-22 14:05] VITALS: BMI 24.8
[2020-09-23] MEDS: 0.9% Saline Lock 10 ML Syringe IV ×2 (14:15→15:47)
== END 2020-09-23 15:49 | disposition home or self-care (01) ==
LOC: MEDOUTP 13:57 → MS3 13:59
PROVIDERS: PCP Family Medicine
DX: J86.9 Pyothorax without fistula (principal)
CPT/HCPCS: 96365; J7050; A4216; J0696

== ENCOUNTER 2020-09-24 14:06 | Outpatient (CLI) | payer MEDICARE, OTHER, SELFPAY ==
[2020-09-22 14:05] VITALS: BMI 24.8
[2020-09-24] MEDS: 0.9% Saline Lock 10 ML Syringe IV ×2 (14:05→15:00)
[2020-09-24 14:14] VITALS: BP 136/61; PULSE 56; RESP 18; TEMP 36.7; O2SAT 99
== END 2020-09-24 15:00 | disposition home or self-care (01) ==
LOC: MEDOUTP 14:07 → MS3 14:07
PROVIDERS: PCP Family Medicine
DX: J86.9 Pyothorax without fistula (principal)
CPT/HCPCS: 96365; J7050; A4216; J0696

== ENCOUNTER 2020-09-25 13:37 | Outpatient (CLI) | payer MEDICARE, OTHER, SELFPAY ==
[2020-09-22 14:05] VITALS: BMI 24.8
[2020-09-25 13:48] VITALS: BP 102/51; PULSE 79; RESP 16; TEMP 36.2; O2SAT 98; BMI 24.8
[2020-09-25] MEDS: 0.9% NaCl PICC Flush IV ×2 (14:00→15:07)
[2020-09-25] MEDS: 0.9% NaCl IVPB Med Flush (250 mL) 15 ML IV (14:00)
[2020-09-25 14:43] VITALS: BP 102/37; PULSE 58; RESP 16; TEMP 35.8; O2SAT 98
[2020-09-25 15:12] LABS: Hematocrit 29.9 % (40-54); Hemoglobin 9.3 g/dL (13.0-16.5); Mean Corp Hgb Conc 31.1 g/dL (32-36); Mean Corpuscular Hgb 33.1 pg (27.0-32.0); Mean Corpuscular Volume 106.4 fL (80-94); Mean Platelet Vol. 9.4 fl (6.2-12.0); POSITIVE MORPHOLOGY YES; Platelet Count 184 K/mm3 (150-450); RBC Distribution Width CV 17.3 % (11.6-14.6); RBC Distribution Width SD 65.4 fl (35.1-43.9); Red Blood Count 2.81 M/mm3 (4.6-6.2); White Blood Count 11.9 K/mm3 (4.4-11.0)
[2020-09-25 15:13] LABS: Scan Indicated on CBC? Y/N YES- FLAGS NOTED
[2020-09-25 15:31] LABS: AST(SGOT) 18 U/L (15-37); Alanine Aminotransfer ALT/SGPT 26 U/L (16-61); Albumin, Serum 2.1 g/dL (3.2-5.0); Alkaline Phosphatase 140 U/L (45-117); Bilirubin, Direct 0.16 mg/dL (0.00-0.30); Creatinine, Serum 2.04 mg/dL (0.70-1.30); EST Glomerular Filtration Rate 34 mL/min (>60); Est Glom Filt Rate - Afr Amer 41 mL/min (>60); Estimated Creatinine Clearance 31.27 ml/min; Globulin 2.7 g/dL (2.2-4.2); Protein, Total 4.8 g/dL (6.4-8.2)
[2020-09-25 23:09] LABS: Xtra Tube EP Lab EXTRA TUBE
== END 2020-09-25 16:00 | disposition home or self-care (01) ==
LOC: MEDOUTP 13:37
PROVIDERS: PCP Family Medicine
DX: J86.9 Pyothorax without fistula (principal)
CPT/HCPCS: 96365; 36592; 80076; 82565; 85027; J7050; A4216; J0696

== ENCOUNTER → 2020-09-26 10:55 | Outpatient (CLI) | payer MEDICARE, OTHER, SELFPAY ==
[2020-09-07 15:12] VITALS: BMI 27.4
[2020-09-25 13:48] VITALS: BMI 24.8
--- NOTE | 2020-09-26 10:59 | ECHOD_ITS ---
Reason For Study: DYSPNEA/SOB Procedure This was a 2D Doppler, Color Flow transthoracic echocardiogram. The study was technically difficult. Due to arrhythmia. Exam performed in department. Left Ventricle Normal LV size. Sigmoid septum. Segmental dysfunction with preserved ejection fraction (see wall motion). The estimated ejection fraction is 65 %. Unable to assess diastolic dysfunction. No regional wall motion abnormalities noted. Right Ventricle Normal RV size. Normal systolic function. Atria The left atrium is severely enlarged. The right atrium is mildly enlarged. No doppler evidence for ASD. Mitral Valve There is moderate to severe mitral annular calcification. Moderate focal mitral valve calcification of the anterior leaflet. Mild (1+) mitral valve insufficiency. Tricuspid Valve Normal tricuspid valve. Mild to moderate (1-2+) eccentric tricuspid valve insufficiency. Right ventricular systolic pressure estimated to be 34 mmHg. Aortic Valve The aortic valve is not well visualized. Pulmonic Valve The pulmonic valve is not well visualized. Great Vessels Normal sized aortic root. Pericardium/Pleural No pericardial effusion. MMode/2D Measurements & Calculations LVIDd: 4.7 cm IVSd: 1.5 cm Ao root diam: 3.2 cm LVIDs: 3.9 cm LVPWd: 1.2 cm RVDd: 4.2 cm FS: 17.9 % LAV(MOD-bp): 119.5 ml LA A4 area: 30.7 cm2 LA dimension(2D): 4.6 cm LAV(MOD-bp) Indexed: 59.7 ml/m2 LAV(MOD-sp2): 110.0 ml LAV(MOD-sp4): 110.6 ml RA A4 area: 19.8 cm2 Doppler Measurements & Calculations MV E max babar: 111.5 cm/sec Ao V2 max: 130.2 cm/sec LV V1 max: 96.3 cm/sec Ao max P.8 mmHg LV V1 max P.7 mmHg PA V2 max: 83.7 cm/sec TR max babar: 276.9 cm/sec TR max P.7 mmHg ECHO/Echo Complete Interpretation Summary The study was technically difficult. Segmental dysfunction with preserved ejection fraction (see wall motion). The estimated ejection fraction is 65 %. Sigmoid septum. The left atrium is severely enlarged. The right atrium is mildly enlarged. There is moderate to severe mitral annular calcification. Moderate focal mitral valve calcification of the anterior leaflet. Mild (1+) mitral valve insufficiency. Mild to moderate (1-2+) eccentric tricuspid valve insufficiency. Right ventricular systolic pressure estimated to be 34 mmHg. Unable to assess diastolic dysfunction. Ordering Physician: Sergio Jolly Referring Physician: Rosa Maria Santacruz Performed By: Comfort Fuentes, KRISTEN, RVT
[2020-09-26] MEDS: 0.9% NaCl PICC Flush IV ×2 (13:31→14:30)
[2020-09-26] MEDS: 0.9% NaCl IVPB Med Flush (250 mL) 15 ML IV (13:35)
[2020-09-26 13:38] VITALS: BP 115/61; PULSE 60; RESP 16; TEMP 36.3; O2SAT 99
[2020-09-26 14:35] VITALS: BP 122/56; PULSE 58; RESP 16; O2SAT 100
== END ==
PROVIDERS: PCP Family Medicine; Referring Provider Nurse Practitioner Family; Visit Provider Nurse Practitioner Family
DX: R06.00 Dyspnea, unspecified (principal); I25.10 Atherosclerotic heart disease of native coronary artery without angina pectoris; I49.1 Atrial premature depolarization; I48.91 Unspecified atrial fibrillation; I48.92 Unspecified atrial flutter; J86.9 Pyothorax without fistula; Z79.01 Long term (current) use 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
CPT/HCPCS: 96365; 93306; J7050; J0696

== ENCOUNTER 2020-09-27 13:47 | Outpatient (CLI) | payer MEDICARE, OTHER, SELFPAY ==
[2020-09-27 13:57] VITALS: BP 104/59; PULSE 64; RESP 18; TEMP 36.1; O2SAT 94; BMI 24.8
[2020-09-27] MEDS: 0.9% NaCl PICC Flush IV ×2 (13:59→15:01)
[2020-09-27] MEDS: 0.9% NaCl IVPB Med Flush (250 mL) 15 ML IV (13:59)
[2020-09-27 15:03] VITALS: BP 103/72; PULSE 61; RESP 16; TEMP 36.4; O2SAT 100
== END 2020-09-27 16:34 | disposition home or self-care (01) ==
LOC: MEDOUTP 13:48
PROVIDERS: PCP Family Medicine
DX: J86.9 Pyothorax without fistula (principal)
CPT/HCPCS: 96365; J7050; A4216; J0696

== ENCOUNTER → 2020-09-28 13:52 | Outpatient (CLI) | payer MEDICARE, OTHER, SELFPAY ==
[2020-09-11 11:32] VITALS: BMI 25.9
[2020-09-27 13:57] VITALS: BMI 24.8
[2020-09-28] MEDS: 0.9% NaCl PICC Flush IV ×2 (14:04→14:58)
[2020-09-28] MEDS: 0.9% NaCl IVPB Med Flush (250 mL) 15 ML IV (14:09)
[2020-09-28 14:11] VITALS: BP 118/46; PULSE 55; RESP 18; TEMP 35.7; O2SAT 93
[2020-09-28 14:54] VITALS: BP 119/61; PULSE 55; RESP 16; TEMP 35.7; O2SAT 100
== END ==
PROVIDERS: PCP Family Medicine
DX: J86.9 Pyothorax without fistula (principal)
CPT/HCPCS: 96365; J7050; A4216; J0696

== ENCOUNTER → 2020-09-29 13:10 | Outpatient (CLI) | payer MEDICARE, OTHER, SELFPAY ==
[2020-09-11 11:32] VITALS: BMI 25.9
[2020-09-27 13:57] VITALS: BMI 24.8
[2020-09-29 13:30] VITALS: BP 100/44; PULSE 54; RESP 16; TEMP 36.3; O2SAT 99
[2020-09-29] MEDS: 0.9% NaCl IVPB Med Flush (250 mL) 15 ML IV (13:30)
[2020-09-29] MEDS: 0.9% NaCl PICC Flush IV ×2 (13:30→14:40)
[2020-09-29 14:37] VITALS: BP 103/58; PULSE 52; RESP 16; O2SAT 100
== END ==
PROVIDERS: PCP Family Medicine
DX: J86.9 Pyothorax without fistula (principal)
CPT/HCPCS: 96365; J7050; A4216; J0696

== ENCOUNTER 2020-09-30 14:10 | Outpatient (CLI) | payer MEDICARE, OTHER, SELFPAY | END 2020-09-30 15:00 | disposition home or self-care (01) | LOC: MEDOUTP 14:11 → PCU 14:15 | PROVIDERS: PCP Family Medicine | DX: J86.9 Pyothorax without fistula (principal) | CPT/HCPCS: 96365; J0696 ==

== ENCOUNTER 2020-10-01 14:15 | Outpatient (CLI) | payer MEDICARE, OTHER, SELFPAY ==
[2020-10-01 14:24] VITALS: BP 112/44; PULSE 58; RESP 18; TEMP 36.8; O2SAT 100
[2020-10-01] MEDS: 0.9% Saline Lock 10 ML Syringe IV (15:11)
== END 2020-10-01 15:11 | disposition home or self-care (01) ==
LOC: MEDOUTP 14:17 → MS3 14:19
PROVIDERS: PCP Family Medicine
DX: J86.9 Pyothorax without fistula (principal)
CPT/HCPCS: 96365; J7040; A4216; J0696

== ENCOUNTER 2020-10-02 13:52 | Emergency (ER) | payer MEDICARE, OTHER, SELFPAY ==
[2020-10-02 13:54] VITALS: BP 117/66; PULSE 61; RESP 17; TEMP 36.7; O2SAT 98; BMI 25.1
[2020-10-02 14:10] VITALS: BP 130/61; PULSE 66; RESP 14; O2SAT 95
--- NOTE | 2020-10-02 14:31 | ED.DCSUM_ITS ---
History of Present Illness Chief Complaint: Palpitations Informant: Patient Narrative: 80-year-old male presenting for the evaluation of bilateral leg and feet swelling. Patient tells me that he recently has been diagnosed with pneumonia and developed a infection in his lung. He states that he went to [facility] and had a surgery and when he came out of surgery he was in atrial flutter. He states that he has progressively developed the leg swelling and fatigue. He states that now his feet are cracking and bleeding. He notes that he is having extreme difficulty climbing stairs and exerting himself. He states that he has had prior cardioversion in the past at [facility] and he saw his bumper straightener here in [place] recently and is scheduled to have a cardioversion after the . He states he is not sure he is going to be able to make it and is requesting that something be done today. What I can gather from his story and from reading the chart apparently he developed an empyema. So it sounds like his surgery at [facility] was for that. He is on long-term antibiotics through a PICC line but he does not know which kind and again according to the chart appears to be ceftriaxone. He reports that he is also on doxycycline. Patient notes that he is not having any significant shortness of breath. No chest pains. Denies any scrotal or abdominal swelling. He notes an allergy to HCTZ as well as Lasix. He states that he is currently not on any diuretics. Patient's cardiac history includes coronary artery disease status post drug- eluting stent to proximal/mid RCA April 2009, CABG x2 with ZARAGOZA to LAD and aorta to posterior descending coronary artery to reverse SVG in January 2017, paroxysmal atrial fibrillation/flutter, bilateral carotid artery disease, hypertension, and hyperlipidemia. He underwent a cardioversion on 05/09/2020. Currently on amiodarone and Eliquis. 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 (2) Atherosclerotic heart disease of [place] coronary artery without angina pectoris Status: Chronic Comment: CABG x2- ZARAGOZA to LAD, Aorto post descending coronary artery to revers SVG 02/12/17; atherectomy to ostial RCA, LINDY to Prox/Mid RCA 04/2009 (3) Atrial fibrillation and flutter Status: Chronic (4) Carotid artery stenosis Status: Chronic (5) Essential hypertension Status: Chronic (6) Hyperlipidemia Status: Chronic (7) Aortocoronary bypass status Status: Resolved Comment: CABG x2- ZARAGOZA to LAD, Aorto post descending coronary artery to revers SVG 02/12/17 Past Medical History - Allergies and Home Meds Allergies/Adverse Reactions: Allergies hydrochlorothiazide Allergy (Severe, Verified 10/02/20 13:58) Rash furosemide [From Lasix] Allergy (Verified 10/02/20 13:58) Severe Rash Itchy lovastatin [From Mevacor] Allergy (Verified 10/02/20 13:58) Rash amlodipine Adverse Reaction (Verified 10/02/20 13:58) Swelling Primary Care Physician: Rosa Maria Santacruz MD [Primary Care Provider] - Surgical History: angioplasty, - - Coronary artery stent placement, mesenteric artery stent placement Smoking Status: Former smoker Alcohol: None Drugs: None - Family History Maternal Family History: Family History (Last Reviewed 05/22/20 @ 11:05 by Teresa ARITA, PA) Father CAD (coronary artery disease) Mother Cancer Family History: Reports: - - breast cancer Paternal Family History: Family History (Last Reviewed 05/22/20 @ 11:05 by Teresa ARITA, PA) Father CAD (coronary artery disease) Mother Cancer Family History: Reports: Heart Disease, Stroke, - - afib, macular degeneration Review of Systems General: Reports: Malaise. Denies: Chills, Fever, Sweats Eyes: Denies: Visual changes - bilaterally, Diplopia ENT: Denies: Rhinorrhea, Sore throat Cardiovascular: Denies: Chest pain, Palpitations Respiratory: Denies: Dyspnea, Cough, Dyspnea on exertion Gastrointestinal: Denies: Abdominal pain, Nausea, Vomiting, Diarrhea, Melena, Hematochezia Genitourinary: Denies: Dysuria, Hematuria, Frequency Musculoskeletal: Reports: Swelling, Extremity Pain. Denies: Back pain Skin: Reports: Wounds. Denies: Rash Neurological: Denies: Headache, Weakness, Numbness Physical Exam Vital Signs/Narrative: Vital Signs Temp Pulse Resp BP Pulse Ox 10/02/20 14:10 66 14 130/61 H 95 10/02/20 13:54 98.0 F 61 17 117/66 98 Inital Vital Signs reviewed: Yes General: Well nourished, Well developed, No Acute Distress Head: Normocephalic, Atraumatic Eyes: Perrl, EOMI ENT: Moist mucous membranes, No rhinorrhea Neck: Supple, Nontender Cardiovascular: No murmurs, Irregular - Irregularly irregular rhythm. Respiratory: No distress, CTA bilaterally, Chest tenderness, - - Recent surgical incision on the right chest with some subcutaneous emphysema Abdomen: Soft, Nontender, Nondistended, Normal bowel sounds Back: Nontender, Normal Inspection Extremities: Tenderness, Edema - And has 2+ edema to the bilateral feet and legs to the level of the knee. The feet are significantly swollen and cracked where some areas of recently cracked. Skin: Normal color, No rash Neurological: Alert, Oriented x3, Cranial nerves II-XII grossly intact, Normal Strength, Normal Sensation Psychological: Normal affect, Normal Mood Diagnostic/Tx/Re-eval Clinical Impression(s) from Imaging Studies Chest X-Ray 10/02/20 14:55 IMPRESSION: New right-sided pneumothorax without mediastinal shift. Pneumothorax is approximately 20% of the right hemithorax. There is associated right subcutaneous emphysema new since the previous study as well. Left lung is clear Remote CABG N.B. : The above information has been verbally conveyed by Juan Murry MD to Brandon Kimble MD, on 10/02/2020 16:04:52 (ET). Electronically Signed: Juan Murry MD at 16:06 EDT , Service support , ADDENDUM: 10/02/20 1613 IMPRESSION: New right-sided pneumothorax without mediastinal shift. Pneumothorax is approximately 20% of the right hemithorax. There is associated right subcutaneous emphysema new since the previous study as well. Left lung is clear Remote CABG N.B. : The above information has been verbally conveyed by Juan Murry MD to Brandon Kimble MD, on 10/02/2020 16:04:52 (ET). Electronically Signed: Juan Murry MD at 16:06 EDT , Service support , Laboratory Last Values WBC 7.9 K/mm3 (4.4-11.0) 10/02/20 14:10 RBC 2.63 M/mm3 (4.6-6.2) L 10/02/20 14:10 Hgb 8.9 g/dL (13.0-16.5) L 10/02/20 14:10 Hct 29.4 % (40-54) L 10/02/20 14:10 MCV 111.8 fL (80-94) H 10/02/20 14:10 MCH 33.8 pg (27.0-32.0) H 10/02/20 14:10 MCHC 30.3 g/dL (32-36) L 10/02/20 14:10 RDW Std Deviation 85.7 fl (35.1-43.9) H 10/02/20 14:10 RDW Coeff of Chanel 22.0 % (11.6-14.6) H 10/02/20 14:10 Plt Count 144 K/mm3 (150-450) L 10/02/20 14:10 MPV 11.0 fl (6.2-12.0) 10/02/20 14:10 Immature Gran % (Auto) 0.800 % (0.0-0.9) 10/02/20 14:10 Neut % (Auto) 85.3 % (47-70) H 10/02/20 14:10 Lymph % (Auto) 4.8 % (19-41) L 10/02/20 14:10 Kings % (Auto) 8.1 % (0-10) 10/02/20 14:10 Eos % (Auto) 0.6 % (0-5) 10/02/20 14:10 Baso % (Auto) 0.4 % (0-1) 10/02/20 14:10 Absolute Neuts (auto) 6.7 X10^3/uL (2.0-7.7) 10/02/20 14:10 Absolute Lymphs (auto) 0.38 X10^3/uL (0.83-4.51) L 10/02/20 14:10 Nucleated RBC % 0 % (0-5) 10/02/20 14:10 Differential Comment COMMENT 10/02/20 14:10 Anisocytosis 1+ 10/02/20 14:10 PT 17.0 SECONDS (11.7-14.9) H 10/02/20 14:10 INR 1.5 10/02/20 14:10 APTT 28.8 Seconds (24.1-36.2) 10/02/20 14:10 Sodium 145 mmol/L (136-145) 10/02/20 14:10 Potassium 4.8 mmol/L (3.5-5.1) 10/02/20 14:10 Chloride 118 mmol/L (98-107) H 10/02/20 14:10 Carbon Dioxide 23.0 mmol/L (21.0-32.0) 10/02/20 14:10 Anion Gap 4 (5-15) L 10/02/20 14:10 BUN 40 mg/dL (7-18) H 10/02/20 14:10 Creatinine 2.02 mg/dL (0.70-1.30) H 10/02/20 14:10 Estim Creat Clear Calc 31.58 ml/min 10/02/20 14:10 Est GFR (MDRD) Af Amer 41 mL/min (>60) L 10/02/20 14:10 Est GFR (MDRD) Non-Af 34 mL/min (>60) L 10/02/20 14:10 BUN/Creatinine Ratio 19.8 RATIO (10-20) 10/02/20 14:10 Glucose 160 mg/dL (74-106) H 10/02/20 14:10 Lactic Acid 1.6 mmol/L (0.4-1.9) 10/02/20 14:50 Calcium 8.1 mg/dL (8.5-10.1) L 10/02/20 14:10 Total Bilirubin 0.40 mg/dL (0.20-1.00) 10/02/20 14:10 AST 19 U/L (15-37) 10/02/20 14:10 ALT 23 U/L (16-61) 10/02/20 14:10 Alkaline Phosphatase 133 U/L (45-117) H 10/02/20 14:10 Troponin I 0.016 ng/mL (<0.045) 10/02/20 14:10 B-Natriuretic Peptide 528.8 pg/mL (0-100) H 10/02/20 14:10 Total Protein 4.9 g/dL (6.4-8.2) L 10/02/20 14:10 Albumin 2.2 g/dL (3.2-5.0) L 10/02/20 14:10 Globulin 2.7 g/dL (2.2-4.2) 10/02/20 14:10 Albumin/Globulin Ratio 0.8 RATIO (0.9-2.4) L 10/02/20 14:10 - EKG Initial EKG Interpretation: Atrial Flutter - Atrial flutter with variable AV block at a rate of 64. - Medical Decision Making Interpretation of the chest x-ray is approximately 25% pneumothorax on the right with subcutaneous emphysema. I was able to find a chest x-ray read from 21 September prior to his discharge does not mention a pneumothorax on the right. Patient has evidence of right-sided heart failure probably related to his flutter. His diuresis will be complicated by the HCTZ and Lasix allergy. I spoke with pulmonology here as well as her hospitalist. Because of this new pneumothorax and the fact that he just had a VATS procedure last month I called [facility]. Accepted by Dr. Rivas from medicine. ED Disposition - Plan for ED Patient: Disposition: [facility] Diagnosis: Pneumothorax, Right-sided heart failure, Atrial flutter, Anticoagulant long- term use Referrals: Rosa Maria Santacruz MD [Primary Care Provider] -
--- NOTE | 2020-10-02 14:38 | EKG12_ITS ---
Test Reason : PALPITATIONS Blood Pressure : / mmHG Vent. Rate : 064 BPM Atrial Rate : 234 BPM P-R Int : 000 ms QRS Dur : 096 ms QT Int : 480 ms P-R-T Axes : 268 -09 027 degrees QTc Int : 495 ms Atrial flutter with variable A-V block Septal infarct , age undetermined Inferior infarct , age undetermined Abnormal ECG Confirmed by LEOBARDO WATSON, ELIDA ([id number]), slot editor LEA CHAPMAN ([id number]) on 10/06/2020 2:27:50 PM Referred By: Confirmed By:ELIDA BOOTH MD
[2020-10-02 14:47] LABS: Absolute Lymphocyte Count 0.38 X10^3/uL (0.83-4.51); Absolute Neutrophil Count 6.7 X10^3/uL (2.0-7.7); Basophil# 0.03 X10^3/uL; Basophil% 0.4 % (0-1); Eosinophil# 0.05 X10^3/uL; Eosinophils% 0.6 % (0-5); Hematocrit 29.4 % (40-54); Hemoglobin 8.9 g/dL (13.0-16.5); Lymphocyte # 0.38 X10^3/ul (4.0); Lymphocyte % 4.8 % (19-41); Mean Corp Hgb Conc 30.3 g/dL (32-36); Mean Corpuscular Hgb 33.8 pg (27.0-32.0); Mean Corpuscular Volume 111.8 fL (80-94); Monocyte# 0.64 X10^3/uL; Monocyte% 8.1 % (0-10); NRBC Flagged by Analyzer 0 % (0-5); Neutrophil # 6.73 X10^3/uL (2.7-7.7); Neutrophil % 85.3 % (47-70); POSITIVE DIFFERENTIAL YES; POSITIVE MORPHOLOGY YES; Platelet Count 144 K/mm3 (150-450); RBC Distribution Width SD 85.7 fl (35.1-43.9); Red Blood Count 2.63 M/mm3 (4.6-6.2); White Blood Count 7.9 K/mm3 (4.4-11.0)
[2020-10-02 14:49] LABS: Differential Indicated SCAN CRITERIA MET
--- NOTE | 2020-10-02 14:55 | RAD_ITS ---
STUDY: X-RAY CHEST REASON FOR EXAM: Male, 80 years old. Worsening shortness of breath TECHNIQUE: Single AP portable view of the chest. COMPARISON: 09/11/2020 FINDINGS: EKG leads overlie the chest. A left PICC line has been placed, tip in the distal SVC. Left lung remains clear and expanded without a superimposed process There is a new right pneumothorax compared to the previous study. It represents approximately 20% of the right hemithorax without mediastinal shift. There is also diffuse subcutaneous emphysema in the right chest, perhaps there was some attempt at draining the previously noted right pleural effusion. Sternal cerclage wires and vascular clips are present from a prior sternotomy and coronary artery bypass graft procedure (CABG). Normal mediastinum and aidan. Normal visualized pulmonary arteries. There is atherosclerotic calcification of the aortic arch with tortuosity. There are diffuse degenerative changes of the visualized thoracic spine. Normal visualized ribs, clavicles, and shoulders. There is no demonstrated abnormality of the visualized soft tissue structures of the upper abdomen. RAD/Chest 1 View (Portable) IMPRESSION: New right-sided pneumothorax without mediastinal shift. Pneumothorax is approximately 20% of the right hemithorax. There is associated right subcutaneous emphysema new since the previous study as well. Left lung is clear Remote CABG N.B. : The above information has been verbally conveyed by Juan Murry MD to Brandon Kimble MD, on 10/02/2020 16:04:52 (ET). Electronically Signed: Juan Murry MD at 16:06 EDT , Service support ,
[2020-10-02 14:58] LABS: International Normalized Ratio 1.5; Partial Thromboplast Time 28.8 Seconds (24.1-36.2)
[2020-10-02 15:00] LABS: ALB/GLOB Ratio 0.8 RATIO (0.9-2.4); AST(SGOT) 19 U/L (15-37); Alanine Aminotransfer ALT/SGPT 23 U/L (16-61); Albumin, Serum 2.2 g/dL (3.2-5.0); Alkaline Phosphatase 133 U/L (45-117); Anion Gap 4 (5-15); BUN 40 mg/dL (7-18); BUN/Creat Ratio 19.8 RATIO (10-20); Calcium,Total 8.1 mg/dL (8.5-10.1); Chloride 118 mmol/L (98-107); Creatinine, Serum 2.02 mg/dL (0.70-1.30); EST Glomerular Filtration Rate 34 mL/min (>60); Est Glom Filt Rate - Afr Amer 41 mL/min (>60); Estimated Creatinine Clearance 31.58 ml/min; Globulin 2.7 g/dL (2.2-4.2); Glucose 160 mg/dL (74-106); Potassium 4.8 mmol/L (3.5-5.1); Protein, Total 4.9 g/dL (6.4-8.2); Sodium Level 145 mmol/L (136-145)
[2020-10-02 15:06] LABS: BNP,B-Type NATRIURETIC PEPTIDE 528.8 pg/mL (0-100)
[2020-10-02 15:08] LABS: Anisocytosis 1+
[2020-10-02 15:22] LABS: Lactic Acid 1.6 mmol/L (0.4-1.9)
[2020-10-02 16:48] VITALS: BP 127/60; PULSE 58; RESP 14; O2SAT 96
[2020-10-02 18:00] VITALS: BP 155/68; PULSE 83; RESP 12; O2SAT 96
[2020-10-02 19:19] VITALS: BP 151/74; PULSE 72; RESP 14; TEMP 36.7; O2SAT 96
--- NOTE | 2020-10-02 19:42 | ED.RN ---
Report given to physicians ambulance staff and Belongings bag taken with patient
== END 2020-10-02 19:42 | disposition short-term general hospital (02) ==
PROVIDERS: Emergency Provider Emergency Medicine; PCP Family Medicine
DX: J93.9 Pneumothorax, unspecified (principal); I11.0 Hypertensive heart disease with heart failure; I50.810 Right heart failure, unspecified; I48.92 Unspecified atrial flutter; I25.10 Atherosclerotic heart disease of native coronary artery without angina pectoris; I48.91 Unspecified atrial fibrillation; E78.5 Hyperlipidemia, unspecified; Z79.01 Long term (current) use 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; Z95.5 Presence of coronary angioplasty implant and graft; Z95.1 Presence of aortocoronary bypass graft; Z87.891 Personal history of nicotine dependence; Z79.899 Other long term (current) drug therapy; Z79.82 Long term (current) use of aspirin
CPT/HCPCS: 36415; 36592; 71045; 80053; 83605; 83880; 84484; 85025; 85610; 85730; 87040; 93005; 99285

== ENCOUNTER → 2020-10-11 11:36 | Outpatient (CLI) | payer MEDICARE, OTHER, SELFPAY ==
[2020-10-11 10:43] VITALS: BMI 26.3
--- NOTE | 2020-10-11 11:40 | RAD_ITS ---
STUDY: X-RAY CHEST REASON FOR EXAM: Male, 80 years old. Chest pain/pressure/fever and cough TECHNIQUE: PA and lateral views of the chest. COMPARISON: 10/02/2020 FINDINGS: The previously noted pneumothorax in the inferior right hemithorax has resolved. There is persistent right-sided pleural thickening and effusion including an air-fluid level at the base of the right lung suggesting there is likely a persistent empyema present but there is no superimposed infiltrate or opacification in either visualized lung field. Sternal cerclage wires and vascular clips are present from a prior sternotomy and coronary artery bypass graft procedure (CABG). Normal mediastinum and aidan. Normal visualized pulmonary arteries. Normal visualized aortic arch and descending thoracic aorta. Normal visualized thoracic spine. Normal visualized ribs, clavicles, and shoulders. There is no demonstrated abnormality of the visualized soft tissue structures of the upper abdomen. RAD/Chest PA and Lateral IMPRESSION: Resolution of the previously noted right pneumothorax. Persistent right pleural effusion with pleural thickening and there is also an air-fluid level in the inferior aspect of the right hemithorax suggesting persistent empyema. Follow-up recommended to ensure complete resolution No superimposed acute pulmonary process in either lung field Electronically Signed: Juan Murry MD at 12:17 EDT , Service support ,
[2020-10-11 13:27] LABS: Absolute Lymphocyte Count 0.31 X10^3/uL (0.83-4.51); Absolute Neutrophil Count 5.4 X10^3/uL (2.0-7.7); Basophil# 0.04 X10^3/uL; Basophil% 0.6 % (0-1); Eosinophil# 0.19 X10^3/uL; Eosinophils% 2.9 % (0-5); Hematocrit 32.8 % (40-54); Lymphocyte # 0.31 X10^3/ul (0.83-4.51); Lymphocyte % 4.8 % (19-41); Mean Corp Hgb Conc 30.5 g/dL (32-36); Mean Corpuscular Hgb 34.1 pg (27.0-32.0); Mean Corpuscular Volume 111.9 fL (80-94); Mean Platelet Vol. 10.8 fl (6.2-12.0); Monocyte# 0.47 X10^3/uL; Monocyte% 7.2 % (0-10); NRBC Flagged by Analyzer 0 % (0-5); Neutrophil # 5.44 X10^3/uL (2.7-7.7); Neutrophil % 83.9 % (47-70); POSITIVE DIFFERENTIAL YES; POSITIVE MORPHOLOGY YES; Platelet Count 170 K/mm3 (150-450); RBC Distribution Width CV 21.2 % (11.6-14.6); RBC Distribution Width SD 85.3 fl (35.1-43.9); Red Blood Count 2.93 M/mm3 (4.6-6.2); White Blood Count 6.5 K/mm3 (4.4-11.0)
[2020-10-11 13:30] LABS: Differential Indicated SCAN CRITERIA MET
[2020-10-11 13:53] LABS: Anion Gap 6 (5-15); BUN 40 mg/dL (7-18); BUN/Creat Ratio 20.7 RATIO (10-20); Calcium,Total 9.1 mg/dL (8.5-10.1); Chloride 104 mmol/L (98-107); Creatinine, Serum 1.93 mg/dL (0.70-1.30); EST Glomerular Filtration Rate 36 mL/min (>60); Est Glom Filt Rate - Afr Amer 43 mL/min (>60); Glucose 99 mg/dL (74-106); Sodium Level 140 mmol/L (136-145)
[2020-10-11 13:54] LABS: Differential Comment SCANNED
[2020-10-11 13:55] LABS: Anisocytosis 1+; Macrocytosis 2+; Red Cell Morphology N CHROM NORMAL (NORM C&C)
== END ==
PROVIDERS: PCP Family Medicine; Referring Provider Internal Medicine Cardiovascular Disease; Visit Provider Internal Medicine Cardiovascular Disease
DX: E78.5 Hyperlipidemia, unspecified (principal); I25.10 Atherosclerotic heart disease of native coronary artery without angina pectoris; I48.91 Unspecified atrial fibrillation; I48.92 Unspecified atrial flutter; I10 Essential (primary) hypertension; J93.9 Pneumothorax, unspecified; Z95.5 Presence of coronary angioplasty implant and graft; Z95.1 Presence of aortocoronary bypass graft
CPT/HCPCS: 36415; 71046; 80048; 85025

== ENCOUNTER → 2020-10-27 10:19 | Outpatient (CLI) | payer MEDICARE, OTHER, SELFPAY ==
[2020-10-11 10:43] VITALS: BMI 26.3
[2020-10-27 12:32] LABS: Erythrocyte Sedimentation Rate 2 mm/hr (0-20)
[2020-10-27 12:39] LABS: Absolute Lymphocyte Count 0.52 X10^3/uL (0.83-4.51); Absolute Neutrophil Count 27.9 X10^3/uL (2.0-7.7); Basophil# 0.08 X10^3/uL; Basophil% 0.3 % (0-1); Eosinophil# 0.05 X10^3/uL; Eosinophils% 0.2 % (0-5); Hematocrit 36.5 % (40-54); Hemoglobin 11.4 g/dL (13.0-16.5); Lymphocyte # 0.52 X10^3/ul (0.83-4.51); Lymphocyte % 1.7 % (19-41); Mean Corp Hgb Conc 31.2 g/dL (32-36); Mean Corpuscular Hgb 34.5 pg (27.0-32.0); Mean Corpuscular Volume 110.6 fL (80-94); Mean Platelet Vol. 10.1 fl (6.2-12.0); Monocyte# 1.08 X10^3/uL; Monocyte% 3.6 % (0-10); NRBC Flagged by Analyzer 0 % (0-5); Neutrophil # 27.91 X10^3/uL (2.7-7.7); Neutrophil % 93.2 % (47-70); POSITIVE DIFFERENTIAL YES; POSITIVE MORPHOLOGY YES; Platelet Count 275 K/mm3 (150-450); RBC Distribution Width CV 16.9 % (11.6-14.6); RBC Distribution Width SD 70.1 fl (35.1-43.9); White Blood Count 29.9 K/mm3 (4.4-11.0)
[2020-10-27 12:43] LABS: Differential Indicated SCAN CRITERIA MET
[2020-10-27 12:55] LABS: ALB/GLOB Ratio 0.8 RATIO (0.9-2.4); AST(SGOT) 13 U/L (15-37); Alanine Aminotransfer ALT/SGPT 15 U/L (16-61); Albumin, Serum 2.3 g/dL (3.2-5.0); Alkaline Phosphatase 147 U/L (45-117); Anion Gap 9 (5-15); BUN 32 mg/dL (7-18); BUN/Creat Ratio 16.4 RATIO (10-20); Calcium,Total 8.5 mg/dL (8.5-10.1); Chloride 105 mmol/L (98-107); Creatinine, Serum 1.95 mg/dL (0.70-1.30); EST Glomerular Filtration Rate 35 mL/min (>60); Est Glom Filt Rate - Afr Amer 43 mL/min (>60); Glucose 114 mg/dL (74-106); Magnesium 1.6 mg/dL (1.6-2.6); Potassium 4.2 mmol/L (3.5-5.1); Protein, Total 5.3 g/dL (6.4-8.2); Sodium Level 139 mmol/L (136-145)
[2020-10-27 13:14] LABS: Anisocytosis 1+
== END ==
PROVIDERS: PCP Family Medicine; Referring Provider Family Medicine; Visit Provider Family Medicine
DX: I25.10 Atherosclerotic heart disease of native coronary artery without angina pectoris (principal); R53.81 Other malaise; R53.83 Other fatigue; R63.4 Abnormal weight loss
CPT/HCPCS: 36415; 80053; 83735; 84443; 85025; 85652

== ENCOUNTER 2020-10-30 19:12 | Inpatient (IN) | payer MEDICARE, OTHER, SELFPAY ==
[2020-10-11 10:43] VITALS: BMI 26.3
[2020-10-30 19:13] VITALS: BP 153/61; PULSE 104; RESP 18; TEMP 36.9; O2SAT 100; BMI 25.0
--- NOTE | 2020-10-30 19:58 | EKG12_ITS ---
Test Reason : SYNCOPE Blood Pressure : / mmHG Vent. Rate : 103 BPM Atrial Rate : 103 BPM P-R Int : 172 ms QRS Dur : 100 ms QT Int : 352 ms P-R-T Axes : 042 -34 063 degrees QTc Int : 461 ms Sinus tachycardia with Premature atrial complexes Left axis deviation Inferior infarct , age undetermined Anteroseptal infarct , age undetermined Abnormal ECG Confirmed by LEOBARDO WATSON, ELIDA ([id number]), international editorial producer YOBANY COLLINS ([id number]) on 11/01/2020 8:58:23 AM Referred By: RULA WATSON Confirmed By:ELIDA BOOTH MD
--- NOTE | 2020-10-30 19:59 | EDS_ITS ---
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 Minor injuries/skin tears to elbows/forearms. Narrative Narrative: Patient states he had a fall tonight, he was feeling well prior to this, reclined in his easy chair, he got up suddenly and went to walk to his bedroom to go to bed and shortly after standing felt lightheaded to the point of almost passing out, collapsing to the floor and injuring his elbows on the carpet, sustaining some skin tears. He denies any other preceding symptoms other than lightheadedness. No shortness of breath, chest discomfort, palpitations, severe headache. No focal neurologic symptoms or changes in his vision. He did not lose consciousness. He was too weak to get up on his own. He states this is happened to him several times in the last 2 weeks or so, so he has been using a walker but did not have it at the time he got up from his chair. He states he has been eating and drinking well today. [facility] Medical History Atherosclerotic heart disease of [place] coronary artery without angina pectoris Atrial fibrillation Atrial fibrillation and flutter Carotid artery stenosis Essential hypertension Former smoker Hematemesis/vomiting blood History of cardioversion (~05/09/20) History of coronary artery disease Hypercholesterolemia Hyperlipidemia Hypertension [facility] (current) use 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 Premature atrial contractions Right carotid bruit Subclavian artery stenosis, left (~10/15/19) Thrombocytopenia Thrombocytopenia Ulcerative colitis Ulcerative colitis Upper GI bleed Upper GI bleed Home Medications ferrous sulfate 325 mg PO DAILY 05/28/15 [History Last Taken 05/09/20] zinc gluconate 50 mg PO DAILY 05/28/15 [History Last Taken 05/09/20] vitamin B complex 1 each PO DAILY 02/07/16 [History Last Taken 05/09/20] aspirin 81 mg PO DAILY@0800 08/29/16 [History Last Taken 05/09/20] pantoprazole 40 mg PO DAILY 08/29/16 [History Last Taken 05/09/20] balsalazide 750 mg capsule 2,250 mg PO BID cap 03/03/20 [History Last Taken Unknown] amiodarone 200 mg tablet 200 mg PO DAILY #90 tablet 04/03/20 [Rx Last Taken 05/09/20] atorvastatin 40 mg tablet 40 mg PO DAILY #90 tablet 04/10/20 [Rx Last Taken Unknown] levothyroxine 50 mcg tablet 50 mcg PO DAILY 06/13/20 [History Last Taken Unknown] apixaban 2.5 mg tablet 2.5 mg PO BID #180 tablet 07/04/20 [Rx Last Taken Unknown] metoprolol tartrate 25 mg tablet 25 mg PO BID tablet 10/11/20 [History Last Taken Unknown] Allergy/AdvReac Type Severity Reaction Status Date / Time hydrochlorothiazide Allergy Severe Rash Verified 10/30/20 19:17 furosemide [From Lasix] Allergy Severe Verified 10/30/20 19:17 Rash Itchy lovastatin [From Mevacor] Allergy Rash Verified 10/30/20 19:17 amlodipine AdvReac Swelling Verified 10/30/20 19:17 Family History Father CAD (coronary artery disease) Mother Cancer breast Surgical History Aortocoronary bypass status (~02/12/17) History of hand surgery History of vasectomy Hx of CABG Status post insertion of drug-eluting stent into right coronary artery for coronary artery disease (~04/2009) Social History Smoking Status: Former smoker how long ago did patient quit smokin years ago alcohol intake: current alcohol intake frequency: 3 or more drinks per day Alcohol type: beer, wine and hard liquor substance use type: does not use caffeine: Yes Type: coffee Number of servings: 2 ROS ROS ED Constitutional Constitutional ED: Reports malaise; Denies chills or fever(s) Eyes Eyes: Denies change in vision or diplopia ENT ENT ED: Denies rhinorrhea or sore throat Cardiovascular Cardiovascular: Denies chest pain or palpitations Respiratory/Chest Respiratory/Chest: Denies cough or dyspnea Gastrointestinal Gastrointestinal: Denies abdominal pain, diarrhea, nausea or vomiting Genitourinary Genitourinary ED: Denies dysuria or hematuria Musculoskeletal Musculoskeletal: Reports other Details: Bilateral leg edema, chronic ; Denies back pain or neck pain Integumentary Reports Abrasions; Denies abscess or rash Neurologic Neurologic: Denies headache(s), paresthesias or weakness Psychiatric Psychiatric: Denies anxiety or suicidal thoughts EXAM Physical Exam Const Vital Signs: 10/30/20 19:13 10/30/20 20:46 10/30/20 21:47 Temperature 98.4 F 99.5 F H Temperature Source Oral Oral Pulse Rate 104 H 107 H Respiratory Rate 18 16 Blood Pressure 153/61 H 137/64 H Blood Pressure [Lying] 162/63 H Blood Pressure Mean 91 88 Blood Pressure Mean [Lying] 96 Pulse Ox 100 97 Oxygen Delivery Method Room Air Room Air 10/30/20 22:28 Temperature 97.5 F L Temperature Source Oral Pulse Rate 103 H Respiratory Rate 22 H Blood Pressure 141/56 H Blood Pressure [Lying] Blood Pressure Mean 84 Blood Pressure Mean [Lying] Pulse Ox 96 Oxygen Delivery Method Room Air Positive well nourished and well developed General Appearance ED: well developed and NAD HEENT Reports moist mucous membranes normocephalic and atraumatic Eyes PERRL and EOMs intact bilaterally Neck full ROM and supple Resp normal respiratory effort and clear to auscultation bilaterally Cardio no murmurs Cardio Narrative: tachy only mild Rate: regular rate and tachycardic Rhythm: regular rhythm GI non-tender and non-distended Auscultation: normoactive bowel sounds Palpation: soft Back/Spine no CVA tenderness General Back: other FROM Extremity normal to inspection General Extremety ED: Yes edema; Negative for pulses abnormal or tenderness General Extremity: edema bilateral lower extremity Details: mild (Symmetric); Negative for pulses abnormal Neuro oriented x3, CN's II-XII intact bilaterally and no sensory deficits noted Sensorium / Orientation: awake and alert Motor Exam: strength 5/5 throughout Skin no rashes or lesions noted Skin Narrative: Minor 1 cm skin tears, left elbow, right lateral wrist General Skin Exam: skin tear(s) MDM MDM MDM Narrative Medical decision making narrative: We attempted to do orthostatics however the patient came to the end of the bed without knowing what he was doing and looking a little confused so we opted to leave him in bed. I reviewed his chart in the meantime since he had a significant leukocytosis at 30, as he had a white count 27 a couple weeks ago, and prior to that his white count was normal and he was in the emergency department apparently for a pneumothorax that occurred after a VATS procedure that he had for an empyema at [facility], where he was transferred, had a cardioversion as well as a thoracostomy, and was discharged home. As result of that, and his abnormal chest x-ray and leukocytosis, I sent him for CT of the head and chest for further evaluation. The CT confirmed the small pleural effusions that we saw on chest x-ray and no other acute findings or consolidation as noted below. Therefore, I do not think the patient has a recurrent empyema at this time since the effusions are so small, and he has no thoracic symptoms or fever/chills. I am concerned about his slightly abnormal vital signs and his leukocytosis as well as his age, so we will admit him with empiric antibiotics until his blood cultures come back. His lactate is within normal limits. Discussed with hospitalist. Lab Data Attestation: I reviewed the patient's lab results. Labs: Laboratory Results - last 24 hr 10/30/20 10/30/20 10/30/20 19:35 19:35 20:06 WBC 30.7 H* RBC 3.08 L Hgb 10.4 L Hct 32.6 L MCV 105.8 H MCH 33.8 H MCHC 31.9 L RDW Std Deviation 66.1 H RDW Coeff of Chanel 16.7 H Plt Count 236 MPV 10.1 Immature Gran % (Auto) 1.400 H Neut % (Auto) 92.1 H Lymph % (Auto) 1.2 L [place] % (Auto) 5.2 Eos % (Auto) 0.0 Baso % (Auto) 0.1 Absolute Neuts (auto) 28.2 H Absolute Lymphs (auto) 0.38 L Nucleated RBC % 0 Differential Comment Diff Path Review May foll Platelet Estimate ADEQUATE RBC Morphology N CHROM Anisocytosis 1+ Sodium 138 Potassium 4.2 Chloride 103 Carbon Dioxide 26.0 Anion Gap 9 BUN 44 H Creatinine 1.95 H Estim Creat Clear Calc 32.72 Est GFR (MDRD) Af Amer 43 L Est GFR (MDRD) Non-Af 35 L BUN/Creatinine Ratio 22.6 H Glucose 117 H Calcium 8.4 L Troponin I < 0.015 Urine Color Urine Clarity Urine pH Ur Specific [place] Urine Protein Urine Glucose (UA) Urine Ketones Urine Occult Blood Urine Nitrite Urine Bilirubin Urine Urobilinogen Ur Leukocyte Esterase Urine RBC Urine WBC Ur Squamous Epith Cells Urine Bacteria Urine Mucus Ethyl Alcohol 4.0 10/30/20 20:40 WBC RBC Hgb Hct MCV MCH MCHC RDW Std Deviation RDW Coeff of Chanel Plt Count MPV Immature Gran % (Auto) Neut % (Auto) Lymph % (Auto) [place] % (Auto) Eos % (Auto) Baso % (Auto) Absolute Neuts (auto) Absolute Lymphs (auto) Nucleated RBC % Differential Comment Diff Path Review Platelet Estimate RBC Morphology Anisocytosis Sodium Potassium Chloride Carbon Dioxide Anion Gap BUN Creatinine Estim Creat Clear Calc Est GFR (MDRD) Af Amer Est GFR (MDRD) Non-Af BUN/Creatinine Ratio Glucose Calcium Troponin I Urine Color Yellow Urine Clarity Clear Urine pH 5.0 Ur Specific [place] 1.020 Urine Protein 30 H Urine Glucose (UA) Normal Urine Ketones Negative Urine Occult Blood Negative Urine Nitrite Negative Urine Bilirubin 1 H Urine Urobilinogen 1 H Ur Leukocyte Esterase 25 H Urine RBC 0 SEEN Urine WBC 0 SEEN Ur Squamous Epith Cells 0 SEEN Urine Bacteria 0 SEEN Urine Mucus 0 SEEN Ethyl Alcohol Radiography Chest X-Ray - ED: 1 View, Read by ED Physician, No Infiltrates, Right Effusion and Left Effusion Diagnostic Testing: Radiology Impression Chest X-Ray 10/30/20 20:50 IMPRESSION: Left basilar atelectasis versus effusion. Electronically Signed: Charlie Ingram MD at 21:33 EDT Tel , Service support , Brain CT 10/30/20 21:27 IMPRESSION: No acute intracranial abnormality. Chronic involutional and ischemic changes of the brain. Electronically Signed: Charlie Ingram MD at 22:43 EDT Tel , Service support , Chest CT 10/30/20 21:27 IMPRESSION: Small bilateral pleural effusions with no focal consolidation. Individualized dose optimization techniques were used for this CT. at 2240 Reported and signed by: Shubham Norton MD Electronically Signed: Shubham Norton MD at 22:39 EDT Tel , Service support , EKG Initial EKG: Attestation: I personally reviewed and interpreted this EKG as follows: Interpretation: No Acute Injury Pattern and Sinus Tachycardia (103) Prior EKG tracings: available for review (aflutter w/ similar morphology/axis on prior) Discharge Plan Triage Chief Complaint: Syncope ED Provider: Frederick Roberts Dx/Rx/DC Orders Clinical Impression: SIRS (systemic inflammatory response syndrome), Postural dizziness with near syncope, Pleural effusion, bilateral Prescriptions: No Action balsalazide [Colazal] 750 mg capsule 2,250 mg PO BID RF: 0 metoprolol tartrate 25 mg tablet 25 mg PO BID RF: 0 ferrous sulfate 325 MG tablet 325 mg PO DAILY RF: 0 zinc gluconate 50 MG tablet 50 mg PO DAILY RF: 0 vitamin B complex 1 EACH capsule 1 each PO DAILY RF: 0 pantoprazole 40 MG tablet 40 mg PO DAILY RF: 0 aspirin 81 MG tablet 81 mg PO DAILY@0800 RF: 0 amiodarone 200 mg tablet 200 mg PO DAILY Qty: 90 RF: 4 atorvastatin 40 mg tablet 40 mg PO DAILY Qty: 90 RF: 3 levothyroxine 50 mcg tablet 50 mcg PO DAILY RF: 0 Eliquis 2.5 mg tablet 2.5 mg PO BID Qty: 180 RF: 3 Primary Care Provider: Rosa Maria Santacruz Referrals: Rosa Maria Santacruz MD [Primary Care Provider] - Disposition Disposition: Acute Care Hospital [facility]
[2020-10-30 20:20] LABS: Absolute Lymphocyte Count 0.38 X10^3/uL (0.83-4.51); Absolute Neutrophil Count 28.2 X10^3/uL (2.0-7.7); Basophil# 0.04 X10^3/uL; Basophil% 0.1 % (0-1); Eosinophil# 0.01 X10^3/uL; Hematocrit 32.6 % (40-54); Hemoglobin 10.4 g/dL (13.0-16.5); Lymphocyte # 0.38 X10^3/ul (0.83-4.51); Lymphocyte % 1.2 % (19-41); Mean Corp Hgb Conc 31.9 g/dL (32-36); Mean Corpuscular Hgb 33.8 pg (27.0-32.0); Mean Corpuscular Volume 105.8 fL (80-94); Mean Platelet Vol. 10.1 fl (6.2-12.0); Monocyte# 1.58 X10^3/uL; Monocyte% 5.2 % (0-10); NRBC Flagged by Analyzer 0 % (0-5); Neutrophil % 92.1 % (47-70); POSITIVE COUNT YES; POSITIVE DIFFERENTIAL YES; POSITIVE MORPHOLOGY YES; Platelet Count 236 K/mm3 (150-450); RBC Distribution Width CV 16.7 % (11.6-14.6); RBC Distribution Width SD 66.1 fl (35.1-43.9); Red Blood Count 3.08 M/mm3 (4.6-6.2)
[2020-10-30 20:24] LABS: Differential Indicated SCAN CRITERIA MET; White Blood Count 30.7 K/mm3 (4.4-11.0)
[2020-10-30 20:39] LABS: Anion Gap 9 (5-15); BUN 44 mg/dL (7-18); BUN/Creat Ratio 22.6 RATIO (10-20); Calcium,Total 8.4 mg/dL (8.5-10.1); Chloride 103 mmol/L (98-107); Creatinine, Serum 1.95 mg/dL (0.70-1.30); EST Glomerular Filtration Rate 35 mL/min (>60); Est Glom Filt Rate - Afr Amer 43 mL/min (>60); Estimated Creatinine Clearance 32.72 ml/min; Glucose 117 mg/dL (74-106); Potassium 4.2 mmol/L (3.5-5.1); Sodium Level 138 mmol/L (136-145)
[2020-10-30 20:45] LABS: Bacteria 0 SEEN /hpf (None Seen); Color, Urine Yellow (Yellow); Glucose, Dipstick Normal (Normal); Ketone-Dipstick Negative (Negative); Leukocyte Esterase-Dipstick 25 /ul (Negative); Mucous, Urine 0 SEEN /hpf (<or=2+); Nitrite-Dipstick Negative (Negative); Occult Blood-Urine Negative /ul (Negative); Protein-Dipstick 30 mg/dl (Negative); Red Blood Cells-Urine 0 SEEN /hpf (0-5); Squamous Epithelial Cells - UA 0 SEEN /hpf (0-5); Urine Clarity Clear (Clear); Urine Urobilinogen 1 mg/dl (Normal); White Blood Cells 0 SEEN /hpf (0-5)
[2020-10-30 20:46] VITALS: BP 162/63
[2020-10-30 20:48] LABS: Urine Bilirubin Dipstick 1 mg/dL (Negative)
--- NOTE | 2020-10-30 20:50 | RAD_ITS ---
INDICATION: weakness, leukocytosis EXAMINATION/TECHNIQUE: X-RAY - XR Chest 1 View COMPARISON: 10/11/2020. FINDINGS: Sternal cerclage wires and vascular clips are present from a prior sternotomy and coronary artery bypass graft procedure (CABG). Left basilar atelectasis versus effusion. The lungs are otherwise clear. Tortuous and calcified thoracic aorta. The heart is not enlarged. No pneumothorax. No acute osseous abnormalities. RAD/Chest 1 View (Portable) IMPRESSION: Left basilar atelectasis versus effusion. Electronically Signed: Charlie Ingram MD at 21:33 EDT Tel , Service support ,
[2020-10-30 21:14] LABS: Anisocytosis 1+; Platelet Estimate ADEQUATE (ADEQ); Red Cell Morphology N CHROM NORMAL (NORM C&C)
--- NOTE | 2020-10-30 21:27 | CT_ITS ---
EXAM: CT CHEST WITHOUT INTRAVENOUS CONTRAST : 1940 CLINICAL INDICATION: abnormal CXR, leukocytosis, prior empyema TECHNIQUE: Helically acquired images were obtained of the chest without intravenous contrast. This CT exam was performed using one or more of the following dose reduction techniques: automated exposure control, adjustment of the mA and/or kV according to patient size, and/or use of iterative reconstruction technique. This report was created using [employer] report generation technology. COMPARISON: None. FINDINGS: LUNGS AND PLEURAL SPACES: There are small bilateral pleural effusions. No mass. No pneumothorax. HEART: Unremarkable. Heart size is normal. No pericardial effusion. MEDIASTINUM: Unremarkable. No mediastinal or hilar adenopathy. Esophagus is unremarkable. No hiatal hernia. THYROID: Unremarkable. No thyroid lesions. BONES/JOINTS: Unremarkable. No suspicious lytic or blastic abnormality. VASCULATURE: Unremarkable. Thoracic aorta is non-dilated. CT/Chest without Contrast IMPRESSION: Small bilateral pleural effusions with no focal consolidation. Individualized dose optimization techniques were used for this CT. at 2240 Reported and signed by: Shubham Norton MD Electronically Signed: Shubham Norton MD at 22:39 EDT Tel , Service support ,
--- NOTE | 2020-10-30 21:27 | CT_ITS ---
EXAMINATION : Head CT w/out contrast HISTORY : altered mental status COMPARISON : None. TECHNIQUE : Multiple contiguous axial images were obtained from the skull base to the vertex without intravenous contrast. A radiation dose optimization technique was used for this scan. FINDINGS : There is no evidence for acute intracranial hemorrhage, mass effect, or midline shift. There is no extra-axial fluid collection. There are periventricular white matter changes consistent with chronic microvascular ischemic disease. There is sulcal widening and ventricular enlargement consistent with cerebral atrophy. There is normal fenton-white differentiation, without CT evidence of acute ischemia or infarct. The skull base and calvarium are unremarkable. The orbits are unremarkable. The paranasal sinuses are clear. The mastoid air cells are well-aerated. The soft tissues are unremarkable. CT/Brain/Head without Contrast IMPRESSION: No acute intracranial abnormality. Chronic involutional and ischemic changes of the brain. Electronically Signed: Charlie Ingram MD at 22:43 EDT Tel , Service support ,
[2020-10-30 21:47] VITALS: BP 137/64; PULSE 107; RESP 16; TEMP 37.5; O2SAT 97
[2020-10-30 22:28] VITALS: BP 141/56; PULSE 103; RESP 22; TEMP 36.4; O2SAT 96
[2020-10-30 22:55] LABS: Lactic Acid 1.9 mmol/L (0.4-1.9)
[2020-10-30 22:58] VITALS: BP 119/52; PULSE 101; RESP 16; O2SAT 96
[2020-10-30 23:10] VITALS: BP 107/53; PULSE 100; RESP 23; TEMP 36.6; O2SAT 97
--- NOTE | 2020-10-30 23:40 | NURSING ---
Patients notified of admission and states he has had loose stool x 1 week. Patient states this is true and he has taken immodium for the symptoms,
--- NOTE | 2020-10-30 23:44 | EKG12_ITS ---
Test Reason : SYNCOPE Blood Pressure : / mmHG Vent. Rate : 093 BPM Atrial Rate : 093 BPM P-R Int : 178 ms QRS Dur : 114 ms QT Int : 402 ms P-R-T Axes : 051 -20 070 degrees QTc Int : 499 ms Sinus rhythm with Premature atrial complexes Septal infarct Nonspecific T wave abnormality Abnormal ECG Confirmed by LEOBARDO WATSON, ELIDA ([id number]), slot editor YOBANY COLLINS ([id number]) on 11/01/2020 9:09:51 AM Referred By: PETR Confirmed By:ELIDA BOOTH MD
[2020-10-31] VITALS (13 sets, daily range): BP systolic 119–168; BP diastolic 45–103; PULSE 83–121; RESP 18–20; TEMP 36.5–37.3; O2SAT 95–98; BMI 23.6
--- NOTE | 2020-10-31 00:10 | PCM.HP.STD ---
Documented by User: TESSA Rubio 10/31/20 00:35 [facility] Date of Admission: 10/30/20 HPI Narrative EULOGIO NOGUERA, is a 80 M who presents today with complaints of near syncope. Patient states that he was standing up from his recliner when he became dizzy. Patient states this is happened before but this time it did not go away after a few seconds like normal. Patient states that he did not lose consciousness just became weak and lightheaded. Patient has an extensive cardiac history and has recently been admitted to [facility] for an empyema that required a chest tube and outpatient IV antibiotics. Patient states that he recently finished outpatient IV antibiotics. Patient denies fever, chills, shortness of breath, cough, chest pain. 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 Premature atrial contractions Right carotid bruit Subclavian artery stenosis, left (~10/15/19) Thrombocytopenia Thrombocytopenia Ulcerative colitis Ulcerative colitis Upper GI bleed Upper GI bleed Home Medications ferrous sulfate 325 mg PO DAILY 05/28/15 [History Last Taken 05/09/20] zinc gluconate 50 mg PO DAILY 05/28/15 [History Last Taken 05/09/20] vitamin B complex 1 each PO DAILY 02/07/16 [History Last Taken 05/09/20] aspirin 81 mg PO DAILY@0800 08/29/16 [History Last Taken 05/09/20] pantoprazole 40 mg PO DAILY 08/29/16 [History Last Taken 05/09/20] balsalazide 750 mg capsule 2,250 mg PO BID cap 03/03/20 [History Last Taken Unknown] amiodarone 200 mg tablet 200 mg PO DAILY #90 tablet 04/03/20 [Rx Last Taken 05/09/20] atorvastatin 40 mg tablet 40 mg PO DAILY #90 tablet 04/10/20 [Rx Last Taken Unknown] levothyroxine 50 mcg tablet 50 mcg PO DAILY 06/13/20 [History Last Taken Unknown] apixaban 2.5 mg tablet 2.5 mg PO BID #180 tablet 07/04/20 [Rx Last Taken Unknown] metoprolol tartrate 25 mg tablet 25 mg PO BID tablet 10/11/20 [History Last Taken Unknown] Allergy/AdvReac Type Severity Reaction Status Date / Time hydrochlorothiazide Allergy Severe Rash Verified 10/30/20 19:17 furosemide [From Lasix] Allergy Severe Verified 10/30/20 19:17 Rash Itchy lovastatin [From Mevacor] Allergy Rash Verified 10/30/20 19:17 amlodipine AdvReac Swelling Verified 10/30/20 19:17 Family History Father CAD (coronary artery disease) Mother Cancer breast Surgical History Aortocoronary bypass status (~02/12/17) History of hand surgery History of vasectomy Hx of CABG Status post insertion of drug-eluting stent into right coronary artery for coronary artery disease (~04/2009) Social History adopted: No household members: spouse housing: house number of children: 2 service: No current occupational status: retired Smoking Status: Former smoker Tobacco: How many years used: 50 (stopped about 10 yrs ago) how long ago did patient quit smokin years ago alcohol intake: current alcohol intake frequency: 3 or more drinks per day Alcohol type: beer, wine and hard liquor substance use type: does not use caffeine: Yes Type: coffee Number of servings: 2 ROS Constitutional Constitutional: Reports weakness; Denies anorexia, chills, fatigue or fever(s) Eyes Eyes: Denies blurry vision or change in vision ENT HEENT: Denies abnormal hearing or dysphagia Cardiovascular Cardiovascular: Reports lightheadedness and syncope; Denies chest pain, edema or palpitations Respiratory/Chest Respiratory/Chest: Denies cough or hemoptysis Gastrointestinal Gastrointestinal: Denies abdominal pain, constipation or diarrhea Genitourinary Genitourinary: Denies dysuria or hematuria Musculoskeletal Musculoskeletal: Denies back pain, extremity pain or joint pain Integumentary Integumentary: Denies dry skin or jaundice Neurologic Neurologic: Reports dizziness; Denies abnormal gait or abnormal speech Psychiatric Psychiatric: Denies anxiety or depression Endocrine Endocrinology: Denies change in body appearance, cold intolerance or heat intolerance Hematologic/Lymphatic Hematologic/Lymphatic: Denies anemia, easy bleeding or easy bruising Vital Signs Vital Signs Vital Signs: 10/30/20 19:13 10/30/20 20:46 10/30/20 21:47 Temperature 98.4 F 99.5 F H Temperature Source Oral Oral Pulse Rate 104 H 107 H Respiratory Rate 18 16 Blood Pressure 153/61 H 137/64 H Blood Pressure [Lying] 162/63 H Blood Pressure Mean 91 88 Blood Pressure Mean [Lying] 96 Pulse Ox 100 97 Oxygen Delivery Method Room Air Room Air 10/30/20 22:28 10/30/20 22:58 10/30/20 23:10 Temperature 97.5 F L 97.8 F Temperature Source Oral Oral Pulse Rate 103 H 101 H 100 Respiratory Rate 22 H 16 23 H Blood Pressure 141/56 H 119/52 L 107/53 L Blood Pressure [Lying] Blood Pressure Mean 84 74 71 Blood Pressure Mean [Lying] Pulse Ox 96 96 97 Oxygen Delivery Method Room Air Room Air Physical Exam Const alert, oriented x3 and no apparent distress General Appearance: cooperative HEENT normocephalic, head/scalp atraumatic and EAC's normal Eyes PERRL and EOMs intact bilaterally Neck supple and no JVD Lymph Lymphatic: no lymphadenopathy noted Resp normal respiratory effort, normal air movement and clear to auscultation bilaterally Cardio regular rate, regular rhythm, S1 normal heart sound, S2 normal heart sound and peripheral pulses 2+ throughout GI normal to inspection, nondistended, normoactive bowel sounds, soft to palpation and non-tender Extremity normal capillary refill and no clubbing, cyanosis or edema General Extremity: no tenderness to palpation of joints or extremities Skin General Skin Exam: no breakdown and turgor normal Lesions: no lesions Rashes: no rashes Neuro CN's II-XII intact bilaterally Psych thought process normal, cooperative and affect normal Appearance: appropriate Lab / Micro Data Result Diagrams: 10/30/20 19:35 10/30/20 19:35 Labs: Laboratory Results - last 24 hr 10/30/20 10/30/20 10/30/20 19:35 19:35 20:06 WBC 30.7 H* RBC 3.08 L Hgb 10.4 L Hct 32.6 L MCV 105.8 H MCH 33.8 H MCHC 31.9 L RDW Std Deviation 66.1 H RDW Coeff of Chanel 16.7 H Plt Count 236 MPV 10.1 Immature Gran % (Auto) 1.400 H Neut % (Auto) 92.1 H Lymph % (Auto) 1.2 L [place] % (Auto) 5.2 Eos % (Auto) 0.0 Baso % (Auto) 0.1 Absolute Neuts (auto) 28.2 H Absolute Lymphs (auto) 0.38 L Nucleated RBC % 0 Differential Comment Diff Path Review May foll Platelet Estimate ADEQUATE RBC Morphology N CHROM Anisocytosis 1+ Sodium 138 Potassium 4.2 Chloride 103 Carbon Dioxide 26.0 Anion Gap 9 BUN 44 H Creatinine 1.95 H Estim Creat Clear Calc 32.72 Est GFR (MDRD) Af Amer 43 L Est GFR (MDRD) Non-Af 35 L BUN/Creatinine Ratio 22.6 H Glucose 117 H Lactic Acid Calcium 8.4 L Troponin I < 0.015 Urine Color Urine Clarity Urine pH Ur Specific [place] Urine Protein Urine Glucose (UA) Urine Ketones Urine Occult Blood Urine Nitrite Urine Bilirubin Urine Urobilinogen Ur Leukocyte Esterase Urine RBC Urine WBC Ur Squamous Epith Cells Urine Bacteria Urine Mucus Ethyl Alcohol 4.0 10/30/20 10/30/20 20:40 22:15 WBC RBC Hgb Hct MCV MCH MCHC RDW Std Deviation RDW Coeff of [place] Plt Count MPV Immature Gran % (Auto) Neut % (Auto) Lymph % (Auto) [place] % (Auto) Eos % (Auto) Baso % (Auto) Absolute Neuts (auto) Absolute Lymphs (auto) Nucleated RBC % Differential Comment Diff Path Review Platelet Estimate RBC Morphology Anisocytosis Sodium Potassium Chloride Carbon Dioxide Anion Gap BUN Creatinine Estim Creat Clear Calc Est GFR (MDRD) Af Amer Est GFR (MDRD) Non-Af BUN/Creatinine Ratio Glucose Lactic Acid 1.9 Calcium Troponin I Urine Color Yellow Urine Clarity Clear Urine pH 5.0 Ur Specific [place] 1.020 Urine Protein 30 H Urine Glucose (UA) Normal Urine Ketones Negative Urine Occult Blood Negative Urine Nitrite Negative Urine Bilirubin 1 H Urine Urobilinogen 1 H Ur Leukocyte Esterase 25 H Urine RBC 0 SEEN Urine WBC 0 SEEN Ur Squamous Epith Cells 0 SEEN Urine Bacteria 0 SEEN Urine Mucus 0 SEEN Ethyl Alcohol Radiology Impression Chest X-Ray 10/30/20 20:50 IMPRESSION: Left basilar atelectasis versus effusion. Electronically Signed: Charlie Ingram MD at 21:33 EDT Tel , Service support , Brain CT 10/30/20 21:27 IMPRESSION: No acute intracranial abnormality. Chronic involutional and ischemic changes of the brain. Electronically Signed: Charlie Ingram MD at 22:43 EDT Tel , Service support , Chest CT 10/30/20 21:27 IMPRESSION: Small bilateral pleural effusions with no focal consolidation. Individualized dose optimization techniques were used for this CT. at 2240 Reported and signed by: Shubham Norton MD Electronically Signed: Shubham Norton MD at 22:39 EDT Tel , Service support , Assessment & Plan Assessment/Plan (1) Postural dizziness with near syncope: Status: Acute Code(s): R42 - Dizziness and giddiness; R55 - Syncope and collapse (2) SIRS (systemic inflammatory response syndrome): Status: Acute Code(s): R65.10 - Systemic inflammatory response syndrome (SIRS) of non-infectious origin without acute organ dysfunction (3) Pleural effusion, bilateral: Status: Acute Code(s): J90 - Pleural effusion, not elsewhere classified (4) Essential hypertension: Status: Chronic Code(s): I10 - Essential (primary) hypertension (5) Hyperlipidemia: Status: Chronic Code(s): E78.5 - Hyperlipidemia, unspecified Qualifiers: Hyperlipidemia type: unspecified Qualified Code(s): E78.5 - Hyperlipidemia, unspecified (6) Premature atrial contractions: Status: Acute Code(s): I49.1 - Atrial premature depolarization Plan: 1. Postural dizziness with near syncope -Admit to PCU for observation and cardiac monitoring -Obtain orthostatic vital signs -PT and OT to eval and treat -Vital signs and oxygen therapy per protocol -CBC CMP in a.m. -Echocardiogram in a.m. 2. Bilateral pleural effusions -Patient recently at [facility] for empyema and pneumothorax with chest tube placement -Patient recently completed outpatient antibiotics 3. SIRS -Patient is tachycardic and has a white blood cell count of 30.7, this is increased from 29.9 on 10/27/2020 -Patient is is asymptomatic with an unclear etiology, will treat for HCAP pneumonia with cefepime due to bilateral pleural effusions pending blood culture result. 4. Essential hypertension -Stable -Continue metoprolol. 5. Hyperlipidemia -Continue atorvastatin 6. Premature atrial contractions -Patient previously in atrial fibrillation however patient cardioverted while at [facility] now sinus tachycardia with PACs -Continue amiodarone and apixaban DVT prophylaxis-not indicated observation status This patient was seen by TESSA Rubio under the supervision of Dr. Freedman. Documented by User: Dr. 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 Premature atrial contractions Right carotid bruit Subclavian artery stenosis, left (~10/15/19) Thrombocytopenia Thrombocytopenia Ulcerative colitis Ulcerative colitis Upper GI bleed Upper GI bleed Home Medications ferrous sulfate 325 mg PO DAILY 05/28/15 [History Last Taken 05/09/20] zinc gluconate 50 mg PO DAILY 05/28/15 [History Last Taken 05/09/20] vitamin B complex 1 each PO DAILY 02/07/16 [History Last Taken 05/09/20] aspirin 81 mg PO DAILY@0800 08/29/16 [History Last Taken 05/09/20] pantoprazole 40 mg PO DAILY 08/29/16 [History Last Taken 05/09/20] balsalazide 750 mg capsule 2,250 mg PO BID cap 03/03/20 [History Last Taken Unknown] amiodarone 200 mg tablet 200 mg PO DAILY #90 tablet 04/03/20 [Rx Last Taken 05/09/20] atorvastatin 40 mg tablet 40 mg PO DAILY #90 tablet 04/10/20 [Rx Last Taken Unknown] levothyroxine 50 mcg tablet 50 mcg PO DAILY 06/13/20 [History Last Taken Unknown] apixaban 2.5 mg tablet 2.5 mg PO BID #180 tablet 07/04/20 [Rx Last Taken Unknown] metoprolol tartrate 25 mg tablet 25 mg PO BID tablet 10/11/20 [History Last Taken Unknown] Allergy/AdvReac Type Severity Reaction Status Date / Time hydrochlorothiazide Allergy Severe Rash Verified 10/30/20 19:17 furosemide [From Lasix] Allergy Severe Verified 10/30/20 19:17 Rash Itchy lovastatin [From Mevacor] Allergy Rash Verified 10/30/20 19:17 amlodipine AdvReac Swelling Verified 10/30/20 19:17 Family History Father CAD (coronary artery disease) Mother Cancer breast Surgical History Aortocoronary bypass status (~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) History of hand surgery History of vasectomy Hx of CABG Status post insertion of drug-eluting stent into right coronary artery for coronary artery disease (~04/2009) Social History adopted: No household members: spouse housing: house number of children: 2 service: No current occupational status: retired Smoking Status: Former smoker Tobacco: How many years used: 50 (stopped about 10 yrs ago) how long ago did patient quit smokin years ago alcohol intake: current alcohol intake frequency: 3 or more drinks per day Alcohol type: beer, wine and hard liquor substance use type: does not use caffeine: Yes Type: coffee Number of servings: 2 Lab / Micro Data Result Diagrams: 10/30/20 19:35 10/30/20 19:35 Assessment & Plan Assessment/Plan (1) Postural dizziness with near syncope: Status: Acute Code(s): R42 - Dizziness and giddiness; R55 - Syncope and collapse (2) SIRS (systemic inflammatory response syndrome): Status: Acute Code(s): R65.10 - Systemic inflammatory response syndrome (SIRS) of non-infectious origin without acute organ dysfunction (3) Pleural effusion, bilateral: Status: Acute Code(s): J90 - Pleural effusion, not elsewhere classified (4) Essential hypertension: Status: Chronic Code(s): I10 - Essential (primary) hypertension (5) Hyperlipidemia: Status: Chronic Code(s): E78.5 - Hyperlipidemia, unspecified Qualifiers: Hyperlipidemia type: unspecified Qualified Code(s): E78.5 - Hyperlipidemia, unspecified (6) Premature atrial contractions: Status: Acute Code(s): I49.1 - Atrial premature depolarization Assessment/Plan (1) Postural dizziness with near syncope: Status: Acute Code(s): R42 - Dizziness and giddiness; R55 - Syncope and collapse (2) SIRS (systemic inflammatory response syndrome): Status: Acute Code(s): R65.10 - Systemic inflammatory response syndrome (SIRS) of non-infectious origin without acute organ dysfunction (3) Pleural effusion, bilateral: Status: Acute Code(s): J90 - Pleural effusion, not elsewhere classified (4) Essential hypertension: Status: Chronic Code(s): I10 - Essential (primary) hypertension (5) Hyperlipidemia: Status: Chronic Code(s): E78.5 - Hyperlipidemia, unspecified Qualifiers: Hyperlipidemia type: unspecified Qualified Code(s): E78.5 - Hyperlipidemia, unspecified (6) Premature atrial contractions: Status: Acute Code(s): I49.1 - Atrial premature depolarization
[2020-10-31] MEDS: 0.9% Normal Saline 1,000 ML 100 ML IV (02:31)
[2020-10-31 05:37] LABS: Absolute Lymphocyte Count 0.66 X10^3/uL (0.83-4.51); Absolute Neutrophil Count 23.2 X10^3/uL (2.0-7.7); Basophil# 0.05 X10^3/uL; Basophil% 0.2 % (0-1); Eosinophil# 0.03 X10^3/uL; Eosinophils% 0.1 % (0-5); Hematocrit 26.7 % (40-54); Hemoglobin 8.4 g/dL (13.0-16.5); Lymphocyte # 0.66 X10^3/ul (0.83-4.51); Lymphocyte % 2.5 % (19-41); Mean Corp Hgb Conc 31.5 g/dL (32-36); Mean Corpuscular Hgb 34.1 pg (27.0-32.0); Mean Corpuscular Volume 108.5 fL (80-94); Mean Platelet Vol. 10.1 fl (6.2-12.0); Monocyte# 1.57 X10^3/uL; NRBC Flagged by Analyzer 0 % (0-5); Neutrophil # 23.24 X10^3/uL (2.7-7.7); Neutrophil % 89.6 % (47-70); POSITIVE DIFFERENTIAL YES; POSITIVE MORPHOLOGY YES; Platelet Count 182 K/mm3 (150-450); RBC Distribution Width CV 16.9 % (11.6-14.6); RBC Distribution Width SD 67.3 fl (35.1-43.9); Red Blood Count 2.46 M/mm3 (4.6-6.2)
[2020-10-31 05:43] LABS: Differential Indicated SCAN CRITERIA MET
[2020-10-31] MEDS: Levothyroxine 50 MCG Tablet PO (05:46)
[2020-10-31 05:59] LABS: ALB/GLOB Ratio 0.7 RATIO (0.9-2.4); AST(SGOT) 17 U/L (15-37); Alanine Aminotransfer ALT/SGPT 12 U/L (16-61); Albumin, Serum 1.6 g/dL (3.2-5.0); Alkaline Phosphatase 136 U/L (45-117); Anion Gap 7 (5-15); BUN 44 mg/dL (7-18); BUN/Creat Ratio 23.7 RATIO (10-20); Calcium,Total 7.7 mg/dL (8.5-10.1); Chloride 106 mmol/L (98-107); Creatinine, Serum 1.86 mg/dL (0.70-1.30); EST Glomerular Filtration Rate 37 mL/min (>60); Est Glom Filt Rate - Afr Amer 45 mL/min (>60); Globulin 2.4 g/dL (2.2-4.2); Glucose 142 mg/dL (74-106); Sodium Level 137 mmol/L (136-145)
[2020-10-31] MEDS: Acetaminophen 325 MG Tablet 650 MG PO (06:06)
[2020-10-31 06:25] LABS: Anisocytosis 1+
[2020-10-31] MEDS: Aspirin E.C. 81 MG Tablet PO (08:48)
[2020-10-31] MEDS: Vitamin B Comp W-C Capsule 1 CAP PO (08:48)
[2020-10-31] MEDS: BALSALAZIDE DISODIUM 750 MG CAPSULE 2250 MG PO ×2 (08:48→22:25)
[2020-10-31] MEDS: APIXABAN 2.5 MG TABLET PO ×2 (08:48→21:55)
[2020-10-31] MEDS: Pantoprazole Sodium 40 MG Tablet PO (08:49)
[2020-10-31] MEDS: Amiodarone 200 MG Tablet PO (08:49)
[2020-10-31] MEDS: Metoprolol Tartrate 25 MG Tablet PO ×2 (08:49→21:55)
[2020-10-31] MEDS: Ferrous Sulfate 325 MG Tablet PO (11:52)
[2020-10-31 13:04] LABS: Pathologist Review Reviewed
[2020-10-31 13:11] LABS: Pathologist Review Reviewed
--- NOTE | 2020-10-31 14:07 | PN.HOSP_ITS ---
Subjective Subjective: Patient is a 80-year-old male who is resting in bed, alert and oriented x3. Patient mentating well and responsive to questions however was dyspneic on conversation and reports feeling tired. Denies chest pain, palp itations, fever, chills, N/V/D. Objective Data Objective Data Vital Signs: Vital Signs Temp Pulse Resp BP Pulse Ox 97.7 F L 85 18 119/55 L 96 10/31/20 11:50 10/31/20 11:50 10/31/20 11:50 10/31/20 11:50 10/31/20 11:50 Oxygen Delivery Method Room Air Weight: 169 lb 5.04 oz Body Mass Index (BMI) 23.6 Orthostatic Vital Signs Start: 10/31/20 01:01 Freq: q24h Status: Active Protocol: Activity Type Activity Date Activity User E-Sign Co-Sign Detail Recorded Client Recorded Date Recorded By Document 10/31/20 06:00 AF [id number] 10/31/20 07:01 AF 10/31/20 06:00 Orthostatic Vitals Standing -Blood Pressure (90/60-120/80) 136/54 H -Extremity Use Right Arm -Pulse Rate (60-100) 121 H Sitting -Blood Pressure (90/60-120/80) 168/78 H -Extremity Use Right Arm -Pulse Rate (60-100) 107 H Lying -Blood Pressure (90/60-120/80) 161/103 H -Extremity Use Right Arm -Pulse Rate (60-100) 107 H Intake & Output: Intake and Output for Last 24 Hours 10/29/20 10/30/20 10/31/20 23:59 23:59 23:59 Intake Total 500 / 500 1750 / 1750 Balance 500 / 500 1750 / 1750 Lab / Micro Data Result Diagrams: 10/31/20 05:26 10/31/20 05:26 Labs: Laboratory Results - last 24 hr 10/30/20 10/30/20 10/30/20 19:35 19:35 20:06 WBC 30.7 H* RBC 3.08 L Hgb 10.4 L Hct 32.6 L MCV 105.8 H MCH 33.8 H MCHC 31.9 L RDW Std Deviation 66.1 H RDW Coeff of Chanel 16.7 H Plt Count 236 MPV 10.1 Immature Gran % (Auto) 1.400 H Neut % (Auto) 92.1 H Lymph % (Auto) 1.2 L [place] % (Auto) 5.2 Eos % (Auto) 0.0 Baso % (Auto) 0.1 Absolute Neuts (auto) 28.2 H Absolute Lymphs (auto) 0.38 L Nucleated RBC % 0 Differential Comment Diff Path Review Reviewed Platelet Estimate ADEQUATE RBC Morphology N CHROM Anisocytosis 1+ Sodium 138 Potassium 4.2 Chloride 103 Carbon Dioxide 26.0 Anion Gap 9 BUN 44 H Creatinine 1.95 H Estim Creat Clear Calc 32.72 Est GFR (MDRD) Af Amer 43 L Est GFR (MDRD) Non-Af 35 L BUN/Creatinine Ratio 22.6 H Glucose 117 H Lactic Acid Calcium 8.4 L Total Bilirubin AST ALT Alkaline Phosphatase Troponin I < 0.015 Total Protein Albumin Globulin Albumin/Globulin Ratio Urine Color Urine Clarity Urine pH Ur Specific [place] Urine Protein Urine Glucose (UA) Urine Ketones Urine Occult Blood Urine Nitrite Urine Bilirubin Urine Urobilinogen Ur Leukocyte Esterase Urine RBC Urine WBC Ur Squamous Epith Cells Urine Bacteria Urine Mucus Ethyl Alcohol 4.0 10/30/20 10/30/20 10/31/20 20:40 22:15 05:26 WBC 26.0 H RBC 2.46 L Hgb 8.4 L Hct 26.7 L MCV 108.5 H MCH 34.1 H MCHC 31.5 L RDW Std Deviation 67.3 H RDW Coeff of Chanel 16.9 H Plt Count 182 MPV 10.1 Immature Gran % (Auto) 1.600 H Neut % (Auto) 89.6 H Lymph % (Auto) 2.5 L [place] % (Auto) 6.0 Eos % (Auto) 0.1 Baso % (Auto) 0.2 Absolute Neuts (auto) 23.2 H Absolute Lymphs (auto) 0.66 L Nucleated RBC % 0 Differential Comment Diff Path Review Reviewed Platelet Estimate RBC Morphology Anisocytosis 1+ Sodium Potassium Chloride Carbon Dioxide Anion Gap BUN Creatinine Estim Creat Clear Calc Est GFR (MDRD) Af Amer Est GFR (MDRD) Non-Af BUN/Creatinine Ratio Glucose Lactic Acid 1.9 Calcium Total Bilirubin AST ALT Alkaline Phosphatase Troponin I Total Protein Albumin Globulin Albumin/Globulin Ratio Urine Color Yellow Urine Clarity Clear Urine pH 5.0 Ur Specific [place] 1.020 Urine Protein 30 H Urine Glucose (UA) Normal Urine Ketones Negative Urine Occult Blood Negative Urine Nitrite Negative Urine Bilirubin 1 H Urine Urobilinogen 1 H Ur Leukocyte Esterase 25 H Urine RBC 0 SEEN Urine WBC 0 SEEN Ur Squamous Epith Cells 0 SEEN Urine Bacteria 0 SEEN Urine Mucus 0 SEEN Ethyl Alcohol 10/31/20 05:26 WBC RBC Hgb Hct MCV MCH MCHC RDW Std Deviation RDW Coeff of Chanel Plt Count MPV Immature Gran % (Auto) Neut % (Auto) Lymph % (Auto) [place] % (Auto) Eos % (Auto) Baso % (Auto) Absolute Neuts (auto) Absolute Lymphs (auto) Nucleated RBC % Differential Comment Diff Path Review Platelet Estimate RBC Morphology Anisocytosis Sodium 137 Potassium 4.0 Chloride 106 Carbon Dioxide 24.0 Anion Gap 7 BUN 44 H Creatinine 1.86 H Estim Creat Clear Calc 34.30 Est GFR (MDRD) Af Amer 45 L Est GFR (MDRD) Non-Af 37 L BUN/Creatinine Ratio 23.7 H Glucose 142 H Lactic Acid Calcium 7.7 L Total Bilirubin 0.60 AST 17 ALT 12 L Alkaline Phosphatase 136 H Troponin I Total Protein 4.0 L Albumin 1.6 L Globulin 2.4 Albumin/Globulin Ratio 0.7 L Urine Color Urine Clarity Urine pH Ur Specific [place] Urine Protein Urine Glucose (UA) Urine Ketones Urine Occult Blood Urine Nitrite Urine Bilirubin Urine Urobilinogen Ur Leukocyte Esterase Urine RBC Urine WBC Ur Squamous Epith Cells Urine Bacteria Urine Mucus Ethyl Alcohol Radiography Diagnostic Testing: Radiology Impression Chest X-Ray 10/30/20 20:50 IMPRESSION: Left basilar atelectasis versus effusion. Electronically Signed: Charlie Ingram MD at 21:33 EDT Tel , Service support , Brain CT 10/30/20 21:27 IMPRESSION: No acute intracranial abnormality. Chronic involutional and ischemic changes of the brain. Electronically Signed: Charlie Ingram MD at 22:43 EDT Tel , Service support , Chest CT 10/30/20 21:27 IMPRESSION: Small bilateral pleural effusions with no focal consolidation. Individualized dose optimization techniques were used for this CT. at 2240 Reported and signed by: Shubham Norton MD Electronically Signed: Shubham Norton MD at 22:39 EDT Tel , Service support , Physical Exam Narrative See subjective. Const alert and oriented x3 Orientation / Consciousness: lethargic HEENT head/scalp atraumatic Head and Scalp: normocephalic Eyes EOMs intact bilaterally Neck no lymphadenopathy, supple and no JVD Resp no retractions and no use of accessory muscles Effort and Inspection: labored Auscultation: diminished lung sounds Cardio regular rate, regular rhythm, no murmurs and no JVD GI normal to inspection, nondistended, normoactive bowel sounds, soft to palpation and non-tender Extremity normal to inspection and full ROM Skin no rashes or lesions noted and no wounds Neuro CN's II-XII intact bilaterally Psych affect normal Assessment & Plan Assessment/Plan (1) Postural dizziness with near syncope: Status: Acute Code(s): R42 - Dizziness and giddiness; R55 - Syncope and collapse (2) SIRS (systemic inflammatory response syndrome): Status: Acute Code(s): R65.10 - Systemic inflammatory response syndrome (SIRS) of non-infectious origin without acute organ dysfunction (3) Pleural effusion, bilateral: Status: Acute Code(s): J90 - Pleural effusion, not elsewhere classified (4) Essential hypertension: Status: Chronic Code(s): I10 - Essential (primary) hypertension (5) Hyperlipidemia: Status: Chronic Code(s): E78.5 - Hyperlipidemia, unspecified Qualifiers: Hyperlipidemia type: unspecified Qualified Code(s): E78.5 - Hyperlipidemia, unspecified (6) Premature atrial contractions: Status: Acute Code(s): I49.1 - Atrial premature depolarization Plan: Patient is a 80-year-old male who was admitted to the hospital on 10/30/2020 for postural dizziness and syncope and positive SIRS criteria. On my exam today patient did not report any progression in symptoms from admission, however did appear acutely short of breath while talking. Patient cannot provide much insight into shortness of breath, would begin to explain and then stop mid sen tence from exhaustion. Echocardiogram from August 2020 demonstrated an estimated EF of 65%, moderate to severe mitral annular calcification and an RVSP of 34 mmHg. 1) Postural dizziness with near syncope Leukocytosis at 26.0 WBCs and mild anemia with a hemoglobin of 8.4. Vital signs stable and afebrile. CT of the brain demonstrated no acute intracranial abnormality. No focal neuro deficits observed on physical exam. Plan; echocardiogram ordered, orthostatic vitals ordered, PT/OT eval ordered. 2) SIRS Patient met SIRS criteria on admission; tachycardia & leukocytosis. Etiology unclear. ID consult ordered. Plan; continue treatment for HCAP with IV cefepime, blood cultures pending, stool cultures pending. 3) Bilateral pleural effusions Chest CT and x-ray demonstrated small bilateral pleural effusions with no focal consolidation. Patient recently treated at [facility] for empyema and pneumothorax with chest tube placement. 4) Essential hypertension Stable, Continue metoprolol 5) Hyperlipidemia Continue atorvastatin 6) Premature atrial contractions Continue amiodarone and apixaban DVT prophylaxis -[facility] Patient seen by Sergio Bowden PA-C, under the supervision of Dr. Dailey.
--- NOTE | 2020-10-31 15:15 | CHAPLAIN ---
Type of Pastoral Visit _x__ Initial Visit ___ Follow-up Visit ___ On-call Visit ___ General Patient Visit ___ Spiritual Assessment ___ Family Conference ___ Bereavement ___ Rapid Response ___ Code Blue ___ Other (describe below) Pastoral Care Referral From _x__ Patient ___ Family ___ Nurse ___ Physician ___ Manager Of Clinical ___ Sammying Machine Operator ___ Other (describe below) Sacrament/Intervention _x__ Active listening ___ Anointing ___ Nondenominational ___ Bereavement ___ Communion ___ Alicja exploration ___ ___ Life review _x__ Prayer ___ Reconciliation ___ Sacrament of Sick _x__ Supportive presence ___ Wedding ___ Other (describe below) Pastoral Comments
--- NOTE | 2020-10-31 15:39 | CON.PCM.ID_ITS ---
Assessment & Plan Assessment/Plan (1) Postural dizziness with near syncope: Status: Acute Code(s): R42 - Dizziness and giddiness; R55 - Syncope and collapse Plan: Recent empyema and course of iv abx. No sign of residual infection on CT chest, but small effusions still present. Feeling ok, presented with syncope, no fever or sputum. Wbc is elevated, MYRON improving, bcx pending. On empiric cefepime. Will request more records from [facility]. Ok to continue cefepime for now, but not clear that any infection is present. Will follow, thank you, d/w Dr. Dailey HPI Consult Data Date of Consult: 10/31/20 HPI Narrative HPI Narrative: EULOGIO NOGUERA, is a 80 M who presents with dizziness, weakness. Recent admit to [facility] with empyema requiring decortication and iv abx. Thoracentesis here 09/11/20 grew strep and prevotella. Picc removed about a month ago. Has been feeling ok, no fever, no cough, no dyspnea. No n/v/d. Has completed covid vaccine. Came to ED, CT chest done, started on cefepime. Full ROS performed and neg except as noted above. 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 Premature atrial contractions Right carotid bruit Subclavian artery stenosis, left (~10/15/19) Thrombocytopenia Thrombocytopenia Ulcerative colitis Ulcerative colitis Upper GI bleed Upper GI bleed Home Medications ferrous sulfate 325 mg PO DAILY 05/28/15 [History Last Taken 05/09/20] zinc gluconate 50 mg PO DAILY 05/28/15 [History Last Taken 05/09/20] vitamin B complex 1 each PO DAILY 02/07/16 [History Last Taken 05/09/20] aspirin 81 mg PO DAILY@0800 08/29/16 [History Last Taken 05/09/20] pantoprazole 40 mg PO DAILY 08/29/16 [History Last Taken 05/09/20] balsalazide 750 mg capsule 2,250 mg PO BID cap 03/03/20 [History Last Taken Unknown] amiodarone 200 mg tablet 200 mg PO DAILY #90 tablet 04/03/20 [Rx Last Taken 05/09/20] atorvastatin 40 mg tablet 40 mg PO DAILY #90 tablet 04/10/20 [Rx Last Taken Unknown] levothyroxine 50 mcg tablet 50 mcg PO DAILY 06/13/20 [History Last Taken Unknown] apixaban 2.5 mg tablet 2.5 mg PO BID #180 tablet 07/04/20 [Rx Last Taken Unknown] metoprolol tartrate 25 mg tablet 25 mg PO BID tablet 10/11/20 [History Last Taken Unknown] Allergy/AdvReac Type Severity Reaction Status Date / Time hydrochlorothiazide Allergy Severe Rash Verified 10/30/20 19:17 furosemide [From Lasix] Allergy Severe Verified 10/30/20 19:17 Rash Itchy lovastatin [From Mevacor] Allergy Rash Verified 10/30/20 19:17 amlodipine AdvReac Swelling Verified 10/30/20 19:17 Family History Father CAD (coronary artery disease) Mother Cancer breast Surgical History Aortocoronary bypass status (~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) History of hand surgery History of vasectomy Hx of CABG Status post insertion of drug-eluting stent into right coronary artery for coronary artery disease (~04/2009) Social History (Updated 10/31/20 @ 01:26 by Brigitte Kennedy) adopted: No household members: spouse housing: house number of children: 2 service: No current occupational status: retired Smoking Status: Former smoker Tobacco: How many years used: 50 (stopped about 10 yrs ago) how long ago did patient quit smokin years ago alcohol intake: current alcohol intake frequency: 3 or more drinks per day Alcohol type: beer, wine and hard liquor substance use type: does not use caffeine: Yes Type: coffee Number of servings: 2 Physical Exam Const alert, oriented x3 and no apparent distress General Appearance: cooperative HEENT normocephalic and head/scalp atraumatic Eyes PERRL and EOMs intact bilaterally Neck supple and No nodes Resp clear to auscultation bilaterally Cardio regular rate and regular rhythm GI normal to inspection, nondistended, normoactive bowel sounds Extremity no clubbing, cyanosis or edema Skin no rashes or lesions noted Neuro CN's II-XII intact bilaterally Lab / Micro Data Result Diagrams: 10/31/20 05:26 10/31/20 05:26 Labs: Laboratory Results - last 24 hr 10/30/20 10/30/20 10/30/20 19:35 19:35 20:06 WBC 30.7 H* RBC 3.08 L Hgb 10.4 L Hct 32.6 L MCV 105.8 H MCH 33.8 H MCHC 31.9 L RDW Std Deviation 66.1 H RDW Coeff of Chanel 16.7 H Plt Count 236 MPV 10.1 Immature Gran % (Auto) 1.400 H Neut % (Auto) 92.1 H Lymph % (Auto) 1.2 L [place] % (Auto) 5.2 Eos % (Auto) 0.0 Baso % (Auto) 0.1 Absolute Neuts (auto) 28.2 H Absolute Lymphs (auto) 0.38 L Nucleated RBC % 0 Differential Comment Diff Path Review Reviewed Platelet Estimate ADEQUATE RBC Morphology N CHROM Anisocytosis 1+ Sodium 138 Potassium 4.2 Chloride 103 Carbon Dioxide 26.0 Anion Gap 9 BUN 44 H Creatinine 1.95 H Estim Creat Clear Calc 32.72 Est GFR (MDRD) Af Amer 43 L Est GFR (MDRD) Non-Af 35 L BUN/Creatinine Ratio 22.6 H Glucose 117 H Lactic Acid Calcium 8.4 L Total Bilirubin AST ALT Alkaline Phosphatase Troponin I < 0.015 Total Protein Albumin Globulin Albumin/Globulin Ratio Urine Color Urine Clarity Urine pH Ur Specific [place] Urine Protein Urine Glucose (UA) Urine Ketones Urine Occult Blood Urine Nitrite Urine Bilirubin Urine Urobilinogen Ur Leukocyte Esterase Urine RBC Urine WBC Ur Squamous Epith Cells Urine Bacteria Urine Mucus Ethyl Alcohol 4.0 10/30/20 10/30/20 10/31/20 20:40 22:15 05:26 WBC 26.0 H RBC 2.46 L Hgb 8.4 L Hct 26.7 L MCV 108.5 H MCH 34.1 H MCHC 31.5 L RDW Std Deviation 67.3 H RDW Coeff of Chanel 16.9 H Plt Count 182 MPV 10.1 Immature Gran % (Auto) 1.600 H Neut % (Auto) 89.6 H Lymph % (Auto) 2.5 L [place] % (Auto) 6.0 Eos % (Auto) 0.1 Baso % (Auto) 0.2 Absolute Neuts (auto) 23.2 H Absolute Lymphs (auto) 0.66 L Nucleated RBC % 0 Differential Comment Diff Path Review Reviewed Platelet Estimate RBC Morphology Anisocytosis 1+ Sodium Potassium Chloride Carbon Dioxide Anion Gap BUN Creatinine Estim Creat Clear Calc Est GFR (MDRD) Af Amer Est GFR (MDRD) Non-Af BUN/Creatinine Ratio Glucose Lactic Acid 1.9 Calcium Total Bilirubin AST ALT Alkaline Phosphatase Troponin I Total Protein Albumin Globulin Albumin/Globulin Ratio Urine Color Yellow Urine Clarity Clear Urine pH 5.0 Ur Specific [place] 1.020 Urine Protein 30 H Urine Glucose (UA) Normal Urine Ketones Negative Urine Occult Blood Negative Urine Nitrite Negative Urine Bilirubin 1 H Urine Urobilinogen 1 H Ur Leukocyte Esterase 25 H Urine RBC 0 SEEN Urine WBC 0 SEEN Ur Squamous Epith Cells 0 SEEN Urine Bacteria 0 SEEN Urine Mucus 0 SEEN Ethyl Alcohol 10/31/20 05:26 WBC RBC Hgb Hct MCV MCH MCHC RDW Std Deviation RDW Coeff of Chanel Plt Count MPV Immature Gran % (Auto) Neut % (Auto) Lymph % (Auto) [place] % (Auto) Eos % (Auto) Baso % (Auto) Absolute Neuts (auto) Absolute Lymphs (auto) Nucleated RBC % Differential Comment Diff Path Review Platelet Estimate RBC Morphology Anisocytosis Sodium 137 Potassium 4.0 Chloride 106 Carbon Dioxide 24.0 Anion Gap 7 BUN 44 H Creatinine 1.86 H Estim Creat Clear Calc 34.30 Est GFR (MDRD) Af Amer 45 L Est GFR (MDRD) Non-Af 37 L BUN/Creatinine Ratio 23.7 H Glucose 142 H Lactic Acid Calcium 7.7 L Total Bilirubin 0.60 AST 17 ALT 12 L Alkaline Phosphatase 136 H Troponin I Total Protein 4.0 L Albumin 1.6 L Globulin 2.4 Albumin/Globulin Ratio 0.7 L Urine Color Urine Clarity Urine pH Ur Specific [place] Urine Protein Urine Glucose (UA) Urine Ketones Urine Occult Blood Urine Nitrite Urine Bilirubin Urine Urobilinogen Ur Leukocyte Esterase Urine RBC Urine WBC Ur Squamous Epith Cells Urine Bacteria Urine Mucus Ethyl Alcohol Radiology Impression Chest X-Ray 10/30/20 20:50 IMPRESSION: Left basilar atelectasis versus effusion. Electronically Signed: Charlie Ingram MD at 21:33 EDT Tel , Service support , Brain CT 10/30/20 21:27 IMPRESSION: No acute intracranial abnormality. Chronic involutional and ischemic changes of the brain. Electronically Signed: Charlie Ingram MD at 22:43 EDT Tel , Service support , Chest CT 10/30/20 21:27 IMPRESSION: Small bilateral pleural effusions with no focal consolidation. Individualized dose optimization techniques were used for this CT. at 2240 Reported and signed by: Shubham Norton MD Electronically Signed: Shubham Norton MD at 22:39 EDT Tel , Service support ,
[2020-10-31] MEDS: Atorvastatin Calcium 40 MG Tablet PO (21:55)
[2020-11-01] VITALS (10 sets, daily range): BP systolic 111–156; BP diastolic 50–69; PULSE 78–96; RESP 12–18; TEMP 36.5–36.9; O2SAT 96–100
[2020-11-01] MEDS: Levothyroxine 50 MCG Tablet PO (05:14)
[2020-11-01 07:14] LABS: Absolute Lymphocyte Count 0.44 X10^3/uL (0.83-4.51); Absolute Neutrophil Count 22.2 X10^3/uL (2.0-7.7); Basophil# 0.04 X10^3/uL; Basophil% 0.2 % (0-1); Eosinophil# 0.02 X10^3/uL; Eosinophils% 0.1 % (0-5); Hematocrit 26.6 % (40-54); Hemoglobin 8.6 g/dL (13.0-16.5); Lymphocyte # 0.44 X10^3/ul (0.83-4.51); Lymphocyte % 1.8 % (19-41); Mean Corp Hgb Conc 32.3 g/dL (32-36); Mean Corpuscular Hgb 33.5 pg (27.0-32.0); Mean Corpuscular Volume 103.5 fL (80-94); Mean Platelet Vol. 10.1 fl (6.2-12.0); Monocyte# 1.47 X10^3/uL; Monocyte% 5.9 % (0-10); NRBC Flagged by Analyzer 0 % (0-5); Neutrophil % 89.6 % (47-70); POSITIVE DIFFERENTIAL YES; POSITIVE MORPHOLOGY YES; Platelet Count 191 K/mm3 (150-450); RBC Distribution Width CV 16.6 % (11.6-14.6); RBC Distribution Width SD 63.2 fl (35.1-43.9); Red Blood Count 2.57 M/mm3 (4.6-6.2); White Blood Count 24.8 K/mm3 (4.4-11.0)
[2020-11-01 07:16] LABS: Differential Indicated SCAN CRITERIA MET
[2020-11-01 07:35] LABS: ALB/GLOB Ratio 0.6 RATIO (0.9-2.4); AST(SGOT) 54 U/L (15-37); Alanine Aminotransfer ALT/SGPT 22 U/L (16-61); Albumin, Serum 1.5 g/dL (3.2-5.0); Alkaline Phosphatase 182 U/L (45-117); Anion Gap 6 (5-15); BUN 44 mg/dL (7-18); BUN/Creat Ratio 23.4 RATIO (10-20); Calcium,Total 7.8 mg/dL (8.5-10.1); Chloride 105 mmol/L (98-107); Creatinine, Serum 1.88 mg/dL (0.70-1.30); EST Glomerular Filtration Rate 37 mL/min (>60); Est Glom Filt Rate - Afr Amer 45 mL/min (>60); Estimated Creatinine Clearance 33.93 ml/min; Globulin 2.6 g/dL (2.2-4.2); Glucose 109 mg/dL (74-106); Potassium 3.8 mmol/L (3.5-5.1); Protein, Total 4.1 g/dL (6.4-8.2); Sodium Level 135 mmol/L (136-145)
[2020-11-01] MEDS: Pantoprazole Sodium 40 MG Tablet PO (09:42)
[2020-11-01] MEDS: Metoprolol Tartrate 25 MG Tablet PO ×2 (09:42→21:41)
[2020-11-01] MEDS: Amiodarone 200 MG Tablet PO (09:42)
[2020-11-01] MEDS: BALSALAZIDE DISODIUM 750 MG CAPSULE 2250 MG PO ×2 (09:43→21:42)
[2020-11-01] MEDS: Aspirin E.C. 81 MG Tablet PO (09:44)
[2020-11-01] MEDS: 0.9% Normal Saline 1,000 ML 100 ML IV ×2 (09:44→18:12)
[2020-11-01] MEDS: 0.9% Saline Lock 10 ML Syringe IV (09:48)
[2020-11-01] MEDS: APIXABAN 2.5 MG TABLET PO ×2 (10:47→21:42)
[2020-11-01] MEDS: Vitamin B Comp W-C Capsule 1 CAP PO (10:48)
--- NOTE | 2020-11-01 11:30 | CASEMGMT ---
PROMISE ESTEVEZ Assessment: Face to Face with pt for initial transition planning/care coordination assessment. RN HERB introduced self and role at [facility], pt voices understanding and consents to assessment. Pt is A/O x4 and answers all questions appropriately at this time. Pt lying in bed in no distress. Care providers, pharmacy, and demographics verified/updated. Admitting Dx: syncope, elevated WBC's PCP: Neeta Specialists: Katerina, cardio [facility] Pres[facility] Benef[facility]: yes LNOK: Leonor Arreola, Living Arrangements: Pt lives with in a two story house with two steps to enter. Pt reports being I in ADL's. Denies concerns at home. Transportation: Pt drives self and denies concerns with transportation. DME/HHC/SNF: Pt reports having a walker, cane, shower seat and grab bars in the bathroom. States he has had previous HHC but does not know who provided it. Pt denies SNF stay. Pt states no concerns with going home at time of dc. Pt states no further concerns/needs. CM to follow therapy. Advised pt to ask CM if any further question/concerns/needs arise, voices understanding. Pt Goal: Home Plan: Home with support, follow therapy.
[2020-11-01] MEDS: Ferrous Sulfate 325 MG Tablet PO (11:37)
--- NOTE | 2020-11-01 14:41 | PCM.PN.HOSP ---
Documented by User: Sergio ARITA 11/01/20 14:56 Subjective Subjective: Patient is a 80-year-old female currently resting in bed, alert and orient x3. Patient states that he feels a lot better from yesterday, although does endorse some mild diarrhea. Patient is mentating well and understands that he is currently suffering from a C. difficile infection. Denies chest pain, shortness of breath, palpitations, fever, chills, nausea and vomiting. Objective Data Objective Data Vital Signs: Vital Signs Temp Pulse Resp BP Pulse Ox 98.2 F 88 16 122/50 H 98 11/01/20 09:31 11/01/20 09:42 11/01/20 09:31 11/01/20 09:31 11/01/20 09:31 Oxygen Delivery Method Room Air Weight: 169 lb 5.04 oz Body Mass Index (BMI) 23.6 Orthostatic Vital Signs Start: 10/31/20 01:01 Freq: q24h Status: Active Protocol: Activity Type Activity Date Activity User E-Sign Co-Sign Detail Recorded Client Recorded Date Recorded By Document 11/01/20 04:58 AF [id number] 11/01/20 05:13 AF 11/01/20 04:58 Orthostatic Vitals Standing -Blood Pressure (90/60-120/80) 116/58 L -Extremity Use Right Arm -Pulse Rate (60-100) 96 Sitting -Blood Pressure (90/60-120/80) 119/55 L -Extremity Use Right Arm -Pulse Rate (60-100) 94 Lying -Blood Pressure (90/60-120/80) 156/69 H -Extremity Use Right Arm -Pulse Rate (60-100) 90 Intake & Output: Intake and Output for Last 24 Hours 10/30/20 10/31/20 11/01/20 23:59 23:59 23:59 Intake Total 500 / 500 2330 / 2330 1380 / 1380 Balance 500 / 500 2330 / 2330 1380 / 1380 Lab / Micro Data Result Diagrams: 11/01/20 06:50 11/01/20 06:50 Labs: Laboratory Results - last 24 hr 11/01/20 11/01/20 06:50 06:50 WBC 24.8 H RBC 2.57 L Hgb 8.6 L Hct 26.6 L MCV 103.5 H MCH 33.5 H MCHC 32.3 RDW Std Deviation 63.2 H RDW Coeff of Chanel 16.6 H Plt Count 191 MPV 10.1 Immature Gran % (Auto) 2.400 H Neut % (Auto) 89.6 H Lymph % (Auto) 1.[address] [place] % (Auto) 5.9 Eos % (Auto) 0.1 Baso % (Auto) 0.2 Absolute Neuts (auto) 22.2 H Absolute Lymphs (auto) 0.44 L Nucleated RBC % 0 Sodium 135 L Potassium 3.8 Chloride 105 Carbon Dioxide 24.0 Anion Gap 6 BUN 44 H Creatinine 1.88 H Estim Creat Clear Calc 33.93 Est GFR (MDRD) Af Amer 45 L Est GFR (MDRD) Non-Af 37 L BUN/Creatinine Ratio 23.4 H Glucose 109 H Calcium 7.8 L Total Bilirubin 0.70 AST 54 H ALT 22 Alkaline Phosphatase 182 H Total Protein 4.1 L Albumin 1.5 L Globulin 2.6 Albumin/Globulin Ratio 0.6 L Micro: Microbiology 10/31/20 15:23 Stool C. difficile GDH Antigen & Toxins - Final Toxigenic C. difficile 10/31/20 15:23 Stool C. difficile DNA Amplification - Final Physical Exam Const alert, oriented x3 and no apparent distress HEENT head/scalp atraumatic Head and Scalp: normocephalic Eyes EOMs intact bilaterally Neck no lymphadenopathy, supple and no JVD Resp normal respiratory effort, no retractions, no use of accessory muscles and clear to auscultation bilaterally Cardio regular rate, regular rhythm, no murmurs and no JVD GI normal to inspection, nondistended, normoactive bowel sounds, soft to palpation, non-tender and non-distended Extremity full ROM Skin no rashes or lesions noted, no wounds and no jaundice Neuro CN's II-XII intact bilaterally Psych affect normal Assessment & Plan Assessment/Plan (1) Postural dizziness with near syncope: (2) SIRS (systemic inflammatory response syndrome): (3) Pleural effusion, bilateral: (4) Essential hypertension: (5) Hyperlipidemia: QUALIFIER: Hyperlipidemia type: unspecified Qualified Code(s): E78.5 - Hyperlipidemia, unspecified (6) Premature atrial contractions: (7) Clostridioides difficile infection: PLAN: Patient is a 80-year-old male who was admitted to the hospital on 10/30/2020 for postural dizziness and syncope and positive SIRS criteria. On my exam today patient does report feeling much better and only endorses mild diarrhea. Patient understands that that his C. difficile stool came back positive and that he is now being treated for the same. Patient does appear much improved from yesterday on my exam. Creatinine currently 1.88, possibly due to dehydration, IV fluids infusing. 1) Postural dizziness with near syncope Echocardiogram from August 2020 demonstrated an estimated EF of 65%, moderate to severe mitral annular calcification and an RVSP of 34 mmHg. Hemoglobin currently 8.6, improved from yesterday. Vital signs stable and afebrile. CT of the brain demonstrated no acute intracranial abnormality. No focal neuro deficits observed on physical exam. Plan;orthostatic vitals ordered, PT/OT eval ordered, normal saline infusion at 100 mL/h every 10 hours. 2) SIRS secondary to C. difficile infection Positive stool for C. difficile. Patient met SIRS criteria on admission; tachycardia & leukocytosis. ID consult following. WBC is currently 24.8. Cefepime discontinued. Plan; vancomycin 125 mg p.o. every 6 ordered. blood cultures pending. 3) Bilateral pleural effusions Chest CT and x-ray demonstrated small bilateral pleural effusions with no focal consolidation. Patient recently treated at [facility] for empyema and pneumothorax with chest tube placement. 4) Essential hypertension Stable, Continue metoprolol 5) Hyperlipidemia Continue atorvastatin 6) Premature atrial contractions Continue amiodarone and apixaban DVT prophylaxis -[facility] Patient seen by Sergio Bowden PA-C, under the supervision of Dr. Dailey. Documented by User: Dr. Zoila Dailey MD 11/01/20 15:02 Objective Data Lab / Micro Data Result Diagrams: 11/01/20 06:50 11/01/20 06:50
--- NOTE | 2020-11-01 14:53 | CASEMGMT ---
Pt screened with [facility] Palliative Care Screening Tool, did not meet criteria.
--- NOTE | 2020-11-01 16:56 | PCM.PN.ID ---
Physical Exam Narrative Feeling ok, having diarrhea, no fever Const alert General Appearance: cooperative Resp clear to auscultation bilaterally Cardio regular rate and regular rhythm GI normal to inspection, nondistended, normoactive bowel sounds Extremity no clubbing, cyanosis or edema Skin no rashes or lesions noted ID ID: Route of nutrition/ use of supplements: [] Nutritional Intake: [] IV Site: [] Aguilar Catheter: [] Assessment & Plan Assessment/Plan (1) Clostridioides difficile infection: PLAN: Agree with stopping cefepime. Po vanc for 10 day course, will follow as needed, d/w Dr. Dailey
[2020-11-01] MEDS: Atorvastatin Calcium 40 MG Tablet PO (21:41)
[2020-11-02] VITALS (7 sets, daily range): BP systolic 110–142; BP diastolic 52–74; PULSE 73–87; RESP 12–18; TEMP 36.5–36.8; O2SAT 94–99
[2020-11-02] MEDS: 0.9% Normal Saline 1,000 ML 100 ML IV (03:58)
[2020-11-02] MEDS: Levothyroxine 50 MCG Tablet PO (05:12)
[2020-11-02 07:11] LABS: Absolute Lymphocyte Count 0.54 X10^3/uL (0.83-4.51); Absolute Neutrophil Count 18.1 X10^3/uL (2.0-7.7); Basophil# 0.02 X10^3/uL; Basophil% 0.1 % (0-1); Eosinophil# 0.04 X10^3/uL; Eosinophils% 0.2 % (0-5); Hematocrit 24.4 % (40-54); Hemoglobin 7.9 g/dL (13.0-16.5); Lymphocyte # 0.54 X10^3/ul (0.83-4.51); Lymphocyte % 2.7 % (19-41); Mean Corp Hgb Conc 32.4 g/dL (32-36); Mean Corpuscular Hgb 33.2 pg (27.0-32.0); Mean Corpuscular Volume 102.5 fL (80-94); Mean Platelet Vol. 10.4 fl (6.2-12.0); Monocyte# 1.15 X10^3/uL; Monocyte% 5.8 % (0-10); NRBC Flagged by Analyzer 0 % (0-5); Neutrophil # 18.05 X10^3/uL (2.7-7.7); Neutrophil % 90.2 % (47-70); POSITIVE DIFFERENTIAL YES; POSITIVE MORPHOLOGY YES; Platelet Count 178 K/mm3 (150-450); RBC Distribution Width CV 16.4 % (11.6-14.6); RBC Distribution Width SD 61.7 fl (35.1-43.9); Red Blood Count 2.38 M/mm3 (4.6-6.2)
[2020-11-02 07:49] LABS: ALB/GLOB Ratio 0.5 RATIO (0.9-2.4); AST(SGOT) 130 U/L (15-37); Alanine Aminotransfer ALT/SGPT 48 U/L (16-61); Albumin, Serum 1.3 g/dL (3.2-5.0); Alkaline Phosphatase 244 U/L (45-117); Anion Gap 12 (5-15); BUN 41 mg/dL (7-18); BUN/Creat Ratio 24.7 RATIO (10-20); Calcium,Total 7.6 mg/dL (8.5-10.1); Chloride 105 mmol/L (98-107); Creatinine, Serum 1.66 mg/dL (0.70-1.30); EST Glomerular Filtration Rate 43 mL/min (>60); Est Glom Filt Rate - Afr Amer 52 mL/min (>60); Estimated Creatinine Clearance 38.43 ml/min; Globulin 2.5 g/dL (2.2-4.2); Glucose 105 mg/dL (74-106); Potassium 3.7 mmol/L (3.5-5.1); Protein, Total 3.8 g/dL (6.4-8.2); Sodium Level 137 mmol/L (136-145)
[2020-11-02 07:59] LABS: Differential Comment SCANNED; Dohle Bodies RARE; Hypersegmented Neutrophils RARE; Toxic Granulation 1+
[2020-11-02 08:00] LABS: Differential Indicated SCAN CRITERIA MET
--- NOTE | 2020-11-02 09:49 | CASEMGMT ---
Addendum entered by Kristen Aguilar 11/02/20 12:54: PROMISE ESTEVEZ noted pt had not been in yet. TC to to make her aware that pt requested her to pick the agency to go home with. She requested this PROMISE ESTEVEZ to read her the agencies given to her and the star ratings. Did so per request. She states she will get back to in the next day or two. Made aware that pt is dc'ing today. She states she did not know pt was going home and he cannot go home. She asked who dc'ing doctor was. Dr. Dailey sitting beside and stated she could speak to her. After phone call, pt wanting pt to go to [facility]. Ya [facility] aware. TC to [facility] to make aware to cancel scripts received. Original Note: PROMISE ESTEVEZ noted therapy recommended further therapy for pt. PROMISE ESTEVEZ in to pt room to discuss. Pt states he is interested in C. Patient was provided a list of HHC providers including quality and resource use data and consistent with the patient?s preferred geographic region, medical needs, and insurance network. Pt states he would like to talk to his as she is a RN. PROMISE ESTEVEZ to check back once arrives.
[2020-11-02] MEDS: Amiodarone 200 MG Tablet PO (10:02)
[2020-11-02] MEDS: Aspirin E.C. 81 MG Tablet PO (10:02)
[2020-11-02] MEDS: BALSALAZIDE DISODIUM 750 MG CAPSULE 2250 MG PO (10:03)
[2020-11-02] MEDS: Metoprolol Tartrate 25 MG Tablet PO (10:04)
[2020-11-02] MEDS: Pantoprazole Sodium 40 MG Tablet PO (10:04)
[2020-11-02] MEDS: Vitamin B Comp W-C Capsule 1 CAP PO (10:04)
[2020-11-02] MEDS: APIXABAN 2.5 MG TABLET PO (10:04)
--- NOTE | 2020-11-02 11:36 | DCINST_ITS ---
Discharge Instructions Diet Discharge Diet: Low fat / Low cholesterol Activity Discharge Activity: - (Advise continued fall precautions, moderate activity until c-diff infection/worsened diarrhea has resolved.) May resume sexual activity in: - (Only after completion of vancomycin treatment and resolution of worsened diarrhea.) Weight Bearing Status: Weight bearing as tolerated Dressing / Incision Call your doctor if you observe: Fever of 101 or Higher, Shortness of breath, Dizziness, Fainting spells, Chest pain, Uncontrolled pain and - (Recurrent worsened diarrhea.) Follow Up Care Please Follow Up With: Rosa Maria Santacruz MD When: Follow-up with PCP within 3-5 days to review admission. Test Results: Test results from this visit will be discussed in further detail at your follow-up appointment, if applicable. Discharge Plan Admission Admit Date/Time: 10/31/20 14:04 Primary Reason for Your Visit: Acute Sepsis secondary to C. difficile collitis Attending Provider: Zoila Dailey Primary Care Provider: Rosa Maria Santacruz Consulting Providers: Simba Pringle Discharge Orders/Prescriptions Prescriptions: New Firvanq 25 mg/mL Recon Soln 125 mg PO Q6 9 Days Qty: 180 RF: 0 Lactobacillus acidophilus Capsule 100 mg PO BID 30 Days Qty: 60 RF: 0 Continued balsalazide [Colazal] 750 mg capsule 2,250 mg PO BID RF: 0 metoprolol tartrate 25 mg tablet 25 mg PO BID RF: 0 ferrous sulfate 325 MG tablet 325 mg PO DAILY RF: 0 zinc gluconate 50 MG tablet 50 mg PO DAILY RF: 0 vitamin B complex 1 EACH capsule 1 each PO DAILY RF: 0 pantoprazole 40 MG tablet 40 mg PO DAILY RF: 0 aspirin 81 MG tablet 81 mg PO DAILY@0800 RF: 0 amiodarone 200 mg tablet 200 mg PO DAILY Qty: 90 RF: 4 atorvastatin 40 mg tablet 40 mg PO DAILY Qty: 90 RF: 3 levothyroxine 50 mcg tablet 50 mcg PO DAILY RF: 0 Eliquis 2.5 mg tablet 2.5 mg PO BID Qty: 180 RF: 3 Referrals / Follow Up: Rosa Maria Santacruz MD [Primary Care Provider] - (Follow-up within 3-5 days to review admission. Please have repeat CBC, BMP with your primary care at follow- up.) Simba Pringle MD [STAFF PHYSICIAN] - (Follow-up in 2 weeks or call earlier if any concerns.) Disposition Disposition (needs filled in before D/C Order can be placed): Home, self care
--- NOTE | 2020-11-02 11:53 | PCM.DC.SUM ---
Providers Date of Admission: 10/31/20 Primary Care Physician: Dr. Rosa Maria Santacruz MD Consultations 10/31/20 07:46 Consult: Infectious Disease Routine Consulting Provider: Simba Pringle Reason for Consult: Recent PTX, VATS, completed oral abx, now SIRS, small BL pleural effusions EMERGENT Consult: No MD Notified: Yes Date Notified:: 10/31/20 Time Notified: 07:46 Method of Notification: Answering Service Reason For Visit: SYNCOPE, ELEVATED WBC Diagnosis Discharge Diagnosis (1) Clostridioides difficile infection: Status: Acute Code(s): A49.8 - Other bacterial infections of unspecified site Plan: 1. Postural dizziness with near syncope likely secondary to Acute GI losses secondary to Acute Sepsis secondary to Acute Clostridium Difficile Colitis 2. Recent VATS, CT placement secondary to empyema with residual small BL pleural effusions (thoracentesis 09/11/2020 with strep and Prevotella s/p completion daptomycin, CT of the chest upon presentation with no residual infection) 3. PAF 4. GERD with history of GI bleed 5. Chronic anemia 6. Ulcerative colitis 7. CAD 8. Hypertension 9. Hyperlipidemia 10. Hypothyroidism Medications at Discharge Home Medications ferrous sulfate 325 mg PO DAILY 05/28/15 zinc gluconate 50 mg PO DAILY 05/28/15 vitamin B complex 1 each PO DAILY 02/07/16 aspirin 81 mg PO DAILY@0800 08/29/16 pantoprazole 40 mg PO DAILY 08/29/16 balsalazide 750 mg capsule 2,250 mg PO BID cap 03/03/20 amiodarone 200 mg tablet 200 mg PO DAILY #90 tablet 04/03/20 atorvastatin 40 mg tablet 40 mg PO DAILY #90 tablet 04/10/20 levothyroxine 50 mcg tablet 50 mcg PO DAILY 06/13/20 apixaban 2.5 mg tablet 2.5 mg PO BID #180 tablet 07/04/20 metoprolol tartrate 25 mg tablet 25 mg PO BID tablet 10/11/20 Lactobacillus acidophilus 100 mg PO BID 30 Days #60 cap 11/02/20 vancomycin [Firvanq] 125 mg PO Q6 9 Days #180 ml 11/02/20 Hospital Course Operations None Procedures EKG Summary of Care Provided Minutes Spent on Discharge: 35 Hospital Course: The patient is a 80 y/o M w/ PMHx: PAF, Carotid stenosis, HTN, HLD, Former Tobacco use, CAD, Ulcerative Colitis, Chronic anemia, GERD who presented to the [facility] ED on 10/31/20 w/ history of increased fatigue, malaise, dizziness with near syncope with worsened diarrhea since recent prolonged tertiary facility admission for VATS/PTX secondary to empyema. Patient admitted initially to the PCU, maintain on fall precautions, orthostatic vital signs obtained and remained significant, giving additional IV fluids with small IV fluid bolus on 11/01/2020, initially placed on empiric cefepime with ID following given unclear specific source as CT chest obtained upon presentation with no obvious evidence of recurrent pneumonia, urinalysis not marked appearing but eventual elucidation that diarrhea worse above baseline with history of underlying ulcerative colitis with C. difficile assay positive, transitioned off of cefepime to oral vancomycin, CBC with improving WBC, afebrile, diarrhea lessened. 09/26/2020 echocardiogram recently performed with segmental dysfunction with preserved EF, EF 50 to 65%, sigmoid septum, severely enlarged LA, mildly enlarged RA, mild MVI, mild to moderate TVI, RVSP 34 mmHg. Given source noncardiac, C. difficile discussed with nursing staff for de-escalation off of cardiac telemetry. Given continued improvement, trending downward WBC and remained afebrile with lessening stools with improved strength, patient amenable to discharge on 11/02/20; however, family concerned about risk for him if return home therefore patient and family amenable to TCU discharge which was arranged. Patient discharged with requested 10 day total course oral vancomycin. Requested continued CBC, BMP trending upon TCU transition given elevated WBC and also to monitor Hgb as underlying chronic anemia but with history of GI bleed. Protonix was continued despite cdiff infection secondary to GI bleed history on apixiban regimen. DAY OF DISCHARGE PROGRESS NOTE: Subjective: Patient without acute event overnight per self and nursing report. Patient notes improved strength, tolerating diet and resolving diarrhea. Notes up in the room this am with minimal assist. Preference for home discharge but given spouse concerns amenable to TCU discharge. Patient denies fever, chills, nausea, emesis, abdominal pain, chest pain or dyspnea. Patient will be discharged with follow-up with primary care physician within 1-2 days of SNF discharge as well as ID in 2 weeks. Objective: T 98.3, heart rate 82, BP 112/54, respiratory rate 12, 96% on room air. Physical Examination: General: awake, alert, oriented x 3 and cooperative, seated upright in PCU bedside chair, improved appearance, was walking in room with staff without issue. Skin: normal color, turgor, no icterus, cyanosis. HEENT: AT/NC, EOMI, PERRLA, improved MMM. Lungs: CTA bilaterally, moderate effort, mild decrease BL bases, no rales, ronchi or wheezing. Heart: Regular rate and rhythm; no gallop, rub audible. Abdomen: soft, NTTP, resolved distention, normalizing bowel sounds. Extremities: no cyanosis, clubbing, or edema. Neurological: patient awake, alert, oriented as noted; cognitive function intact; pupils equally reactive to light and accomodation; cranial nerves II-XII grossly normal, moving all 4 extremities, no focal deficits, strength improving, mildly to moderately global decrease secondary to acute presentation. Psychiatric: affect appears improved, normal, no acute evidence of depressive or anxiety feelings. Assessment and Plan: Please see hospital summary above. ABG / Lab / Microbiology Data Result Diagrams: 11/02/20 05:50 11/02/20 05:50 Laboratory: Laboratory Results - last 24 hr 11/02/20 11/02/20 05:50 05:50 WBC 20.0 H RBC 2.38 L Hgb 7.9 L Hct 24.4 L MCV 102.5 H MCH 33.2 H MCHC 32.4 RDW Std Deviation 61.7 H RDW Coeff of Chanel 16.4 H Plt Count 178 MPV 10.4 Immature Gran % (Auto) 1.000 H Neut % (Auto) 90.2 H Lymph % (Auto) 2.7 L [place] % (Auto) 5.8 Eos % (Auto) 0.2 Baso % (Auto) 0.1 Absolute Neuts (auto) 18.1 H Absolute Lymphs (auto) 0.54 L Nucleated RBC % 0 Differential Comment SCANNED Diff Path Review May foll Hypersegmented Neuts RARE H Toxic Granulation 1+ Dohle Bodies RARE Sodium 137 Potassium 3.7 Chloride 105 Carbon Dioxide 20.0 L Anion Gap 12 BUN 41 H Creatinine 1.66 H Estim Creat Clear Calc 38.43 Est GFR (MDRD) Af Amer 52 L Est GFR (MDRD) Non-Af 43 L BUN/Creatinine Ratio 24.7 H Glucose 105 Calcium 7.6 L Total Bilirubin 0.50 AST 130 H ALT 48 Alkaline Phosphatase 244 H Total Protein 3.8 L Albumin 1.3 L Globulin 2.5 Albumin/Globulin Ratio 0.5 L Microbiology: Microbiology 10/30/20 22:30 Blood Culture - Preliminary Blood Culture (Wb) - Anticubital Right No growth in 48 hours. 10/30/20 22:15 Blood Culture - Preliminary Blood Culture (Wb) - Anticubital Left No growth in 48 hours. 10/31/20 15:23 C. difficile GDH Antigen & Toxins - Final Stool Toxigenic C. difficile C. difficile DNA Amplification - Final Microbiology 10/30/20 22:30 Blood Culture (Wb) - Anticubital Right Blood Culture - Preliminary No growth in 48 hours. 10/30/20 22:15 Blood Culture (Wb) - Anticubital Left Blood Culture - Preliminary No growth in 48 hours. 10/31/20 15:23 Stool C. difficile GDH Antigen & Toxins - Final Toxigenic C. difficile 10/31/20 15:23 Stool C. difficile DNA Amplification - Final D/C Instructions Discharge Diet: Low fat / Low cholesterol Discharge Activity: - (Advise continued fall precautions, moderate activity until c-diff infection/worsened diarrhea has resolved.) May resume sexual activity in: - (Only after completion of vancomycin treatment and resolution of worsened diarrhea.) Weight Bearing Status: Weight bearing as tolerated Call your doctor if you observe: Fever of 101 or Higher, Shortness of breath, Dizziness, Fainting spells, Chest pain, Uncontrolled pain and - (Recurrent worsened diarrhea.) Please Follow Up With: Rosa Maria Santacruz MD When: Follow-up with PCP within 3-5 days to review admission. Meaningful Use Info Meaningful Use Diagnoses (Choose all that apply): None applicable Discharge Plan Admission Admit Date/Time: 10/31/20 14:04 Primary Reason for Your Visit: Acute Sepsis secondary to C. difficile collitis Attending Provider: Zoila Dailey Primary Care Provider: Rosa Maria Santacruz Consulting Providers: Simba Pringle Instructions Patient Instructions: Clostridium difficile Infection, ED Hypotension, Orthostatic, Clostridium Difficile Toxin (Stool) Discharge Orders/Prescriptions Prescriptions: New Firvanq 25 mg/mL Recon Soln 125 mg PO Q6 9 Days Qty: 180 RF: 0 Lactobacillus acidophilus Capsule 100 mg PO BID 30 Days Qty: 60 RF: 0 Continued balsalazide [Colazal] 750 mg capsule 2,250 mg PO BID RF: 0 metoprolol tartrate 25 mg tablet 25 mg PO BID RF: 0 ferrous sulfate 325 MG tablet 325 mg PO DAILY RF: 0 zinc gluconate 50 MG tablet 50 mg PO DAILY RF: 0 vitamin B complex 1 EACH capsule 1 each PO DAILY RF: 0 pantoprazole 40 MG tablet 40 mg PO DAILY RF: 0 aspirin 81 MG tablet 81 mg PO DAILY@0800 RF: 0 amiodarone 200 mg tablet 200 mg PO DAILY Qty: 90 RF: 4 atorvastatin 40 mg tablet 40 mg PO DAILY Qty: 90 RF: 3 levothyroxine 50 mcg tablet 50 mcg PO DAILY RF: 0 Eliquis 2.5 mg tablet 2.5 mg PO BID Qty: 180 RF: 3 Referrals / Follow Up: Rosa Maria Santacruz MD [Primary Care Provider] - 11/08/20 1:20 pm () Simba Pringle MD [STAFF PHYSICIAN] - (Please call the office for an appointment. It is closed today.) Disposition Disposition (needs filled in before D/C Order can be placed): [facility] Visit Charges Inpatient E&M: [id number] Disch Hosp
--- NOTE | 2020-11-02 11:55 | PCM.TXEXTCAR ---
Diet 10/31/20 14:28 Diet: Regular - General Is pt able to select menu?: Yes Routine Orders/Code Status Routine Lab Work: - (CBC, BMP in 2 days and then repeat as needed to assure continued improvement.) Code Status: DNRCC-A (DNR-CCA, no intubation status) Wound(s) right wrist: Wound Type: Skin Tear left elbow: Wound Type: Skin Tear Suggestions for Active Care Change Position every (hours): 2 Hours to sit in a chair: 4 Times a day to sit in chair: 3 Therapies Weight Bearing: Full weight bearing Physical Therapy: Eval and Treat Occupational Therapy: Eval and Treat Problem/Diagnosis (1) Clostridioides difficile infection: Status: Acute Comment: 1. Postural dizziness with near syncope likely secondary to Acute GI losses secondary to Acute Sepsis secondary to Acute Clostridium Difficile Colitis 2. Recent VATS, CT placement secondary to empyema with residual small BL pleural effusions (thoracentesis 09/11/2020 with strep and Prevotella s/p completion daptomycin, CT of the chest upon presentation with no residual infection) 3. PAF 4. GERD with history of GI bleed 5. Chronic anemia 6. Ulcerative colitis 7. CAD 8. Hypertension 9. Hyperlipidemia 10. Hypothyroidism Allergies/Procedures Done in Hospital Allergies hydrochlorothiazide Allergy (Severe, Verified 10/30/20 19:17) Rash furosemide [From Lasix] Allergy (Verified 10/30/20 19:17) Severe Rash Itchy lovastatin [From Mevacor] Allergy (Verified 10/30/20 19:17) Rash amlodipine Adverse Reaction (Verified 10/30/20 19:17) Swelling Procedures: None Type of Care/Length of Stay Estimated LOS: Convalescent Care Less Than 30 days Type of Care Needed: Skilled Rehab Potential: Good Prognosis: Good Additional Orders/Day of Discharge Additional Orders: (1) Fall precautions, (2) IS usage 10x/hr 7 a-7p, (3) Completion of vanc oral regimen and if ongoing or worsening diarrhea earlier follow-up with Dr. Pringle. Day of Discharge: 11/02/20 Dietary and Speech Recommendations Dietitian Recommendations/Changes: will continue regular diet given suspected malnutrition; continue ensure enlive w/ 120mL 4x/day w/ medpass. Follow Up Care Please Follow Up With: Rosa Maria Santacruz MD When: Within 1-2 days of SNF discharge. Please Follow Up With: Simba Pringle When: Follow-up in 2 weeks. Discharge Plan Admission Admit Date/Time: 10/31/20 14:04 Primary Reason for Your Visit: Acute Sepsis secondary to C. difficile collitis Attending Provider: Zoila Dailey Primary Care Provider: Rosa Maria Santacruz Consulting Providers: Simba Pringle Instructions Patient Instructions: Clostridium difficile Infection, ED Hypotension, Orthostatic, Clostridium Difficile Toxin (Stool) Discharge Orders/Prescriptions Prescriptions: New Firvanq 25 mg/mL Recon Soln 125 mg PO Q6 9 Days Qty: 180 RF: 0 Lactobacillus acidophilus Capsule 100 mg PO BID 30 Days Qty: 60 RF: 0 Continued balsalazide [Colazal] 750 mg capsule 2,250 mg PO BID RF: 0 metoprolol tartrate 25 mg tablet 25 mg PO BID RF: 0 ferrous sulfate 325 MG tablet 325 mg PO DAILY RF: 0 zinc gluconate 50 MG tablet 50 mg PO DAILY RF: 0 vitamin B complex 1 EACH capsule 1 each PO DAILY RF: 0 pantoprazole 40 MG tablet 40 mg PO DAILY RF: 0 aspirin 81 MG tablet 81 mg PO DAILY@0800 RF: 0 amiodarone 200 mg tablet 200 mg PO DAILY Qty: 90 RF: 4 atorvastatin 40 mg tablet 40 mg PO DAILY Qty: 90 RF: 3 levothyroxine 50 mcg tablet 50 mcg PO DAILY RF: 0 Eliquis 2.5 mg tablet 2.5 mg PO BID Qty: 180 RF: 3 Referrals / Follow Up: Rosa Maria Santacruz MD [Primary Care Provider] - 11/08/20 1:20 pm () Simba Pringle MD [STAFF PHYSICIAN] - (Please call the office for an appointment. It is closed today.) Disposition Disposition (needs filled in before D/C Order can be placed): Group Home Facility
[2020-11-02] MEDS: Ferrous Sulfate 325 MG Tablet PO (12:39)
--- NOTE | 2020-11-02 12:40 | CASEMGMT ---
Per physician and RN CM patient's is not comfortable with patient coming home. She would prefer he go to the hospital's Transitional Care Unit for rehab. SW went to patient's room and spoke with him about this. He said he does not think it is necessary, but he would go to TCU. ZOË told him SW will get his on the phone so we can all talk. SW got patient's on speaker phone. We discussed options. Patient agreed to [facility] TCU. He declined a list of SNFs as he will only go to TCU. ZOË told them SW will work on this and will let them know. ZOË called [facility] and TCU will have a bed for patient. ZOË notified patient. He has had his COVID vaccines. ZOË told him he will be able to have scheduled visits with 2 people. ZOË told him SW will call his and see if she can bring in his COVID vaccine card. He asked that SW have her call him as well. ZOË called patient's and let her know that TCU can take patient and he will go today. ZOË told her to bring in his COVID vaccine card so he can have scheduled visits. She will call patient. ZOË notified secretary office clerk. ZOË will notify RN as well. Plan: d/c to [facility] TCU under skilled level of care. Ya COOPER
--- NOTE | 2020-11-02 16:46 | NURSING ---
Report called to [facility] in TCU.
[2020-11-03 11:55] LABS: Pathologist Review Reviewed
== END 2020-11-02 16:58 | disposition skilled nursing facility (03) | DRG 872 ==
LOC: ED 23:11 → PCU 23:33
PROVIDERS: Nurse Practitioner Family; Admitting Provider Family Medicine; Emergency Provider Emergency Medicine; PCP Family Medicine; Visit Provider Family Medicine
DX: A41.9 Sepsis, unspecified organism (principal); K51.90 Ulcerative colitis, unspecified, without complications; I48.92 Unspecified atrial flutter; J90 Pleural effusion, not elsewhere classified; A04.72 Enterocolitis due to Clostridium difficile, not specified as recurrent; R55 Syncope and collapse; S51.012A Laceration without foreign body of left elbow, initial encounter; S61.511A Laceration without foreign body of right wrist, initial encounter; I25.10 Atherosclerotic heart disease of native coronary artery without angina pectoris; I48.0 Paroxysmal atrial fibrillation; I12.9 Hypertensive chronic kidney disease with stage 1 through stage 4 chronic kidney disease, or unspecified chronic kidney disease; N18.30 Chronic kidney disease, stage 3 unspecified; E78.5 Hyperlipidemia, unspecified; K21.9 Gastro-esophageal reflux disease without esophagitis; E03.9 Hypothyroidism, unspecified; Z66 Do not resuscitate; I49.1 Atrial premature depolarization; W18.30XA Fall on same level, unspecified, initial encounter; Y93.9 Activity, unspecified; Y92.9 Unspecified place or not applicable; Z87.891 Personal history of nicotine dependence; Z79.01 Long term (current) use 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; Z79.82 Long term (current) use of aspirin; Z79.899 Other long term (current) drug therapy; Z95.1 Presence of aortocoronary bypass graft; Z87.09 Personal history of other diseases of the respiratory system
CPT/HCPCS: 36415; 70450; 71045; 71250; 80048; 80053; 81001; 82077; 83605; 84484; 85025; 87040; 87426; 87493; 93005; 97162; 97166; 97530; 97535; 97803; 99285; J7030; J7040; A4216

== ENCOUNTER 2020-11-02 17:00 | Inpatient (IN) | payer MEDICARE, OTHER, SELFPAY ==
[2020-10-31 01:00] VITALS: BMI 23.6
[2020-11-02 17:33] VITALS: BP 154/71; PULSE 79; RESP 16; TEMP 36.2; O2SAT 99
[2020-11-02 18:10] VITALS: BMI 25.3
[2020-11-02 18:53] VITALS: BP 154/71; PULSE 79
[2020-11-02] MEDS: Metoprolol Tartrate 25 MG Tablet PO (18:53)
--- NOTE | 2020-11-02 21:37 | HP.PCM_ITS ---
HPI - General General Date of Admission: 11/02/20 HPI Narrative 10/30/2020 EULOGIO NOGUERA, is a 80 Male who presents to [facility] with syncope, near syncope. 10/30/2020 EKG sinus tachycardia with premature atrial contractions. Left axis deviation. Inferior infarct, age undetermined. Anteroseptal infarct, age undetermined. Feeling well, got up from recliner, lightheaded near passing out, fell onto floor. Too weak to get up. Happened several times in past several weeks. WBC 30,000. Recent Empyema treated with VATS procedure, antibiotic course. CT chest shows small pleural effusions, no empyema. CT chest negative. Antibiotics given. 10/31/2020 Admit to Hospital. Orthostatic vital signs for near syncope. PT/OT for debility. Cefepime for healthcare associated pneumonia pending culture results. 10/31/2020 Infectious Disease recommended continuing Cefepime for now. Recent empyema resolved. 11/01/2020 C. Diff positive. Near syncope secondary to orthostasis from dehydration from c. diff. 11/01/2020 Infectious Disease recommended stopping Cefepime, treat c. diff with 10 day course of Vancomycin. 11/02/2020 Admit to tcu with debility, here for rehabilitation, strengthening, prior to discharge home with . [facility] Medical History Atherosclerotic heart disease of 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 Premature atrial contractions Right carotid bruit Subclavian artery stenosis, left (~10/15/19) Thrombocytopenia Thrombocytopenia Ulcerative colitis Ulcerative colitis Upper GI bleed Upper GI bleed Home Medications ferrous sulfate 325 mg PO DAILY 05/28/15 [History Last Taken 05/09/20] zinc gluconate 50 mg PO DAILY 05/28/15 [History Last Taken 05/09/20] vitamin B complex 1 each PO DAILY 02/07/16 [History Last Taken 05/09/20] aspirin 81 mg PO DAILY@0800 08/29/16 [History Last Taken 05/09/20] pantoprazole 40 mg PO DAILY 08/29/16 [History Last Taken 05/09/20] balsalazide 750 mg capsule 2,250 mg PO BID cap 03/03/20 [History Last Taken Unknown] levothyroxine 50 mcg tablet 50 mcg PO DAILY 06/13/20 [History Last Taken Unknown] metoprolol tartrate 25 mg tablet 25 mg PO BID tablet 10/11/20 [History Last Taken Unknown] Eliquis 2.5 mg PO BID 11/02/20 [History Last Taken Unknown] Lactobacillus acidophilus 100 mg PO BID 11/02/20 [History Last Taken Unknown] amiodarone 200 mg PO DAILY 11/02/20 [History Last Taken Unknown] atorvastatin 40 mg PO DAILY 11/02/20 [History Last Taken Unknown] vancomycin [Firvanq] 125 mg PO Q6 9 Days #180 ml 11/02/20 [Rx Last Taken Unknown] Allergy/AdvReac Type Severity Reaction Status Date / Time hydrochlorothiazide Allergy Severe Rash Verified 10/30/20 19:17 furosemide [From Lasix] Allergy Severe Verified 10/30/20 19:17 Rash Itchy lovastatin [From Mevacor] Allergy Rash Verified 10/30/20 19:17 amlodipine AdvReac Swelling Verified 10/30/20 19:17 Family History Father CAD (coronary artery disease) Mother Cancer breast Surgical History Aortocoronary bypass status (~02/12/17) History of hand surgery History of vasectomy Hx of CABG Status post insertion of drug-eluting stent into right coronary artery for coronary artery disease (~04/2009) Social History adopted: No household members: spouse housing: house number of children: 2 current occupational status: retired Smoking Status: Former smoker Tobacco: How many years used: 50 (stopped about 10 yrs ago) how long ago did patient quit smokin years ago alcohol intake: current alcohol intake frequency: 3 or more drinks per day Alcohol type: beer, wine and hard liquor substance use type: does not use caffeine: Yes Type: coffee Number of servings: 2 ROS Constitutional Constitutional: Reports weakness; Denies chills, fever(s) or weight gain ENT HEENT: Denies headache(s), nasal congestion or nasal discharge Cardiovascular Cardiovascular: Denies chest pain or palpitations Respiratory/Chest Respiratory/Chest: Denies cough, excessive phlegm production or shortness of breath with exertion Gastrointestinal Gastrointestinal: Denies abdominal pain, nausea or vomiting Genitourinary Genitourinary: Denies dysuria Musculoskeletal Musculoskeletal: Denies joint pain or joint swelling Integumentary Integumentary: Denies rash or wounds Neurologic Neurologic: Denies focal weakness, numbness or tingling Psychiatric Psychiatric: Reports auditory hallucinations; Denies anxiety, depression, ho micidal ideation or suicidal ideation Vital Signs Vital Signs Vital Signs: 11/02/20 17:33 11/02/20 18:53 Temperature 97.1 F L Temperature Source Temporal Pulse Rate 79 79 Respiratory Rate 16 Blood Pressure 154/71 H 154/71 H Blood Pressure Mean 98 Blood Pressure Source Monitor Blood Pressure Position Semi-Fowlers Blood Pressure Location Right Arm Pulse Ox 99 Oxygen Delivery Method Room Air Physical Exam Const alert and oriented x3 General Appearance: cooperative HEENT normocephalic Eyes PERRL and EOMs intact bilaterally Neck supple, no JVD and no carotid bruits Resp normal respiratory effort, normal air movement and clear to auscultation bilaterally Cardio regular rate and regular rhythm GI normal to inspection, nondistended, normoactive bowel sounds, non-tender and non-distended Extremity normal capillary refill General Extremity: Negative for edema Skin no rashes or lesions noted General Skin Exam: no breakdown Psych affect normal Appearance: appropriate Lab / Micro Data Labs: Laboratory Results - last 24 hr 11/02/20 18:30 Blood Type O POSITIVE Antibody Screen NEGATIVE Crossmatch See Detail Assessment & Plan Assessment/Plan (1) Debility: (2) Near syncope: (3) Clostridioides difficile infection: (4) Anemia: (5) Coronary artery disease: (6) Atrial fibrillation: (7) Carotid artery stenosis: (8) Hypertension: (9) Hyperlipidemia: (10) Ulcerative colitis: (11) Gastroesophageal reflux disease: (12) Hypothyroidism: (13) Alcohol abuse: PLAN: 80 year old male with below past medical history hospitalized for near syncope secondary to dehydration from clostridium difficile colitis, complicated by progressive anemia, admitted to TCU with debility, here for rehabilitation, strengthening, prior to discharge home with . * Debility - PT/OT. * Pain - Tylenol 1000MG Q6H PRN pain (1-10). * Bowel - Hold, Clostridium Difficile * Adult immunization - Administer Prevnar 13, Pneumovax 23, Fluzone, COVID19 vaccine as appropriate. * DVT prophylaxis - Hold, anemia. * Atrial Fibrillation - Metoprolol 25MG BID, Amiodarone 200MG daily, Aspirin 81MG daily, not anticoagulated due to chronic anemia. * Hyperlipidemia - Atorvastatin 40MG QHS. * Ulcerative colitis - Colazal 2250MG BID (Formulary equivalent). * Nutrition - Ensure Enlive 120ML 4x/day. * Iron deficiency anemia - Ferrous sulfate 325MG daily, Type & Cross 2 units PRBC, Transfuse per protocol, Lasix 20MG IV between units, H&H 24 hours after transfusion. * GI prophylaxis - Lactobacillus 1 tablet BID. * Hypothyroidism - Levothyroxine 50MCG daily. * Coronary Artery Disease - Metoprolol 25MG BID, Aspirin 81MG daily. * GERD - Pantoprazole 40MG daily. * Clostridium Difficile colitis - Vancomycin 125MG Q6H thru 11/07/2020. * Vitamin B deficiency - Vitamin B complex daily. * Zinc deficiency - Zinc 50MG daily.
[2020-11-02 22:15] VITALS: PULSE 67; RESP 18; O2SAT 95
[2020-11-02] MEDS: Atorvastatin Calcium 40 MG Tablet PO (22:36)
[2020-11-03 05:00] VITALS: BP 142/67; PULSE 71; RESP 18; TEMP 36.2; O2SAT 95
[2020-11-03 05:01] VITALS: PULSE 71
[2020-11-03] MEDS: Metoprolol Tartrate 25 MG Tablet PO ×2 (05:01→19:01)
[2020-11-03] MEDS: Vitamin B Comp W-C Capsule 1 CAP PO (05:02)
[2020-11-03] MEDS: Amiodarone 200 MG Tablet PO (05:02)
[2020-11-03] MEDS: Pantoprazole Sodium 40 MG Tablet PO (05:02)
[2020-11-03] MEDS: Levothyroxine 50 MCG Tablet PO (05:02)
--- NOTE | 2020-11-03 05:53 | NURSING ---
SPOKE TO NURSE MARCO Snyder ON 11/02 RE: PATIENT'S BALSALAZIDE. MEDICATION IS CURRENTLY ON BACK ORDER AND PHARMACY UNABLE TO DETERMINE TIME FRAME WHEN MEDICATION WILL BE AVAILABLE. PATIENT PERMITTED TO USE HOME SUPPLY OF THIS MEDICATION IT IN UNAVAILABLE. NURSING STAFF FROM TODAY, 11/03 NOTIFIED WELL.
[2020-11-03 06:10] LABS: Anion Gap 6 (5-15); BUN 40 mg/dL (7-18); BUN/Creat Ratio 27.2 RATIO (10-20); Calcium,Total 7.5 mg/dL (8.5-10.1); Chloride 107 mmol/L (98-107); Creatinine, Serum 1.47 mg/dL (0.70-1.30); EST Glomerular Filtration Rate 49 mL/min (>60); Est Glom Filt Rate - Afr Amer 59 mL/min (>60); Glucose 98 mg/dL (74-106); Sodium Level 137 mmol/L (136-145)
[2020-11-03 07:39] LABS: Absolute Lymphocyte Count 0.59 X10^3/uL (0.83-4.51); Absolute Neutrophil Count 11.5 X10^3/uL (2.0-7.7); Basophil# 0.02 X10^3/uL; Basophil% 0.2 % (0-1); Eosinophil# 0.14 X10^3/uL; Eosinophils% 1.1 % (0-5); Hematocrit 24.8 % (40-54); Lymphocyte # 0.59 X10^3/ul (0.83-4.51); Lymphocyte % 4.5 % (19-41); Mean Corp Hgb Conc 32.3 g/dL (32-36); Mean Corpuscular Hgb 33.3 pg (27.0-32.0); Mean Corpuscular Volume 103.3 fL (80-94); Mean Platelet Vol. 10.8 fl (6.2-12.0); Monocyte# 0.74 X10^3/uL; Monocyte% 5.6 % (0-10); NRBC Flagged by Analyzer 0 % (0-5); Neutrophil # 11.52 X10^3/uL (2.7-7.7); Neutrophil % 87.8 % (47-70); POSITIVE DIFFERENTIAL YES; Platelet Count 184 K/mm3 (150-450); RBC Distribution Width CV 16.2 % (11.6-14.6); RBC Distribution Width SD 61.1 fl (35.1-43.9); White Blood Count 13.1 K/mm3 (4.4-11.0)
[2020-11-03 07:41] LABS: Differential Indicated SCAN CRITERIA MET
[2020-11-03] MEDS: Ferrous Sulfate 325 MG Tablet PO (08:08)
[2020-11-03] MEDS: Aspirin E.C. 81 MG Tablet PO (08:08)
[2020-11-03] MEDS: BALSALAZIDE DISODIUM 750 MG CAPSULE 2250 MG PO ×2 (08:47→19:02)
--- NOTE | 2020-11-03 10:32 | NURSING ---
Pt went to [facility] for blood transfusion. Per Govind in pharmacy okay to give Vancomycin early.
--- NOTE | 2020-11-03 14:23 | PHA.CONS_ITS ---
Progress Note - Pharmacy Subjective: TCU ADMISSION Objective: Allergies hydrochlorothiazide Allergy (Severe, Verified 10/30/20 19:17) Rash furosemide [From Lasix] Allergy (Verified 10/30/20 19:17) Severe Rash Itchy lovastatin [From Mevacor] Allergy (Verified 10/30/20 19:17) Rash amlodipine Adverse Reaction (Verified 10/30/20 19:17) Swelling Current Medications Generic Name Dose Route Start Last Admin Trade Name Freq PRN Reason Stop Dose Admin Acetaminophen 1,000 mg 11/02/20 21:56 Acetaminophen 500 Mg Tablet PO Q6H PRN PRN Pain Score 1-10 Amiodarone HCl 200 mg 11/03/20 06:00 11/03/20 05:02 Amiodarone 200 Mg Tablet PO 200 mg DAILY RJ Administration Aspirin 81 mg 11/03/20 08:00 11/03/20 08:08 Aspirin E.C. 81 Mg Tablet PO 81 mg DAILY@0800 RJ Administration Atorvastatin Calcium 40 mg 11/02/20 22:00 11/02/20 22:36 Atorvastatin Calcium 40 Mg Tablet PO 40 mg QHS RJ Administration Balsalazide 2,250 mg 11/03/20 08:00 11/03/20 08:47 Balsalazide Disodium 750 Mg Capsule PO 2,250 mg BID RJ Administration Ferrous Sulfate 325 mg 11/03/20 08:00 11/03/20 08:08 Ferrous Sulfate 325 Mg Tablet PO 325 mg DAILYCM RJ Administration Lactobacillus Acidophilus 1 tablet 11/02/20 18:00 11/03/20 05:09 Lactobacillus Acidophilus PO 1 tablet BID RJ Administration Levothyroxine Sodium 50 mcg 11/03/20 06:00 11/03/20 05:02 Levothyroxine 50 Mcg Tablet PO 50 mcg DAILY@0600 RJ Administration Metoprolol Tartrate 25 mg 11/02/20 18:00 11/03/20 05:01 Metoprolol Tartrate 25 Mg Tablet PO 25 mg BID RJ Administration Multivitamins 1 capsule 11/03/20 06:00 11/03/20 05:02 Vitamin B Comp W-C Capsule PO 1 capsule DAILY RJ Administration Nutritional Formula (Lactose Free) 120 ml 11/02/20 22:00 11/03/20 12:42 Ensure Enlive 120 Ml Liquid PO Not Given 4X/DAY [facility] Pantoprazole Sodium 40 mg 11/03/20 06:00 11/03/20 05:02 Pantoprazole Sodium 40 Mg Tablet PO 40 mg DAILY RJ Administration Sodium Chloride 10 - 40 ml 11/03/20 05:00 0.9% Saline Lock 10 Ml Syringe IV UD PRN SALINE FLUSH Tuberculin PPD 5 tu 11/10/20 10:00 Tuberculin,Purif.Prot.Deriv. 50 Tu/Ml Vial ID 11/10/20 10:01 X1 ONE Vancomycin HCl 125 mg 11/02/20 18:00 11/03/20 09:43 Vancomcyin 125 Mg/5 Ml Susp Po.Syringe PO 11/07/20 23:00 125 mg Q6 RJ Administration Zinc Sulfate 220 mg 11/03/20 06:00 11/03/20 07:21 Zinc Sulfate (50mg Elemental) 220 Mg Capsule PO Not Given DAILY RJ Problem List (Last Reviewed 11/02/20 @ 21:[address] Jesu Hale MD) Alcohol abuse (Acute) Hypothyroidism (Acute) Gastroesophageal reflux disease (Acute) Ulcerative colitis (Acute) Hyperlipidemia (Acute) Hypertension (Chronic) Carotid artery stenosis (Acute) Atrial fibrillation (Acute) Coronary artery disease (Acute) Anemia (Acute) Near syncope (Acute) Debility (Acute) Clostridioides difficile infection (Acute) Vital Signs Temp Pulse Resp BP Pulse Ox 97.1 F L 71 18 142/67 H 95 11/03/20 05:00 11/03/20 05:01 11/03/20 05:00 11/03/20 05:00 11/03/20 05:00 Oxygen Delivery Method Room Air Weight: 82.372 kg Body Mass Index (BMI) 25.3 Sodium 137 mmol/L (136-145) 11/03/20 05:10 Potassium 4.0 mmol/L (3.5-5.1) 11/03/20 05:10 Chloride 107 mmol/L (98-107) 11/03/20 05:10 Carbon Dioxide 24.0 mmol/L (21.0-32.0) 11/03/20 05:10 Anion Gap 6 (5-15) 11/03/20 05:10 BUN 40 mg/dL (7-18) H 11/03/20 05:10 Creatinine 1.47 mg/dL (0.70-1.30) H 11/03/20 05:10 Est GFR (MDRD) Af Amer 59 mL/min (>60) L 11/03/20 05:10 Est GFR (MDRD) Non-Af 49 mL/min (>60) L 11/03/20 05:10 BUN/Creatinine Ratio 27.2 RATIO (10-20) H 11/03/20 05:10 Glucose 98 mg/dL (74-106) 11/03/20 05:10 Assessment/Plan: 1. Pain: Tylenol 1000mg Q6H PO PRN pain (1-10). Please continue to monitor pain and PRN usage. 2. Atrial fibrillation/Coronary Artery Disease: metoprolol 25mg PO BID, amiodarone 200mg PO daily, aspirin 81mg PO daily. Please continue to monitor HR (last 71), BP ( last 142/67), S/S of bleeding. 3. Hyperlipidemia: atorvastatin 40mg PO QHS. Please continue to monitor lipids (last LDL 46 on 04/19/20). 4. Ulcerative colitis: balsalazide 2250mg PO BID. Please continue to monitor S/S of UC, and renal function (GFR last 59 mL/min). 5. Nutrition/Iron deficiency anemia/Vitamin B deficiency/Zinc deficiency: Ferrous sulfate 325mg PO daily with meals, Vitamin B complex PO daily, Zinc 220mg PO daily, Please continue to monitor hemoglobin (last 8 g/dL), iron studies and labs as clinically appropriate. 6. GI prophylaxis: Lactobacillus 1 tablet PO BID. 7. Hypothyroidism: levothyroxine 50mcg PO daily. Please continue to monitor thyroid function tests (FT4 last 1.02 ng/dL 05/26/20 and TSH last 4.9 uIU/mL on 10/27/20). 8. GERD: pantoprazole 40mg PO daily. Please continue to monitor S/S of GERD. 9. Clostridium Difficile colitis: vancomycin 125mg Q6H PO thru 11/07/2020. Please continue to monitor diarrhea, WBC (last 13.1), and temperature (last 97.1), resolution of infection. Psychotropic Medications: None Unnecessary Medications: None Bowel Regimen: None (+ C.diff infection currently) Date of Note:: 11/03/20
--- NOTE | 2020-11-03 14:44 | NURSING ---
Addendum entered by Sarika Cooper 11/03/20 14:59: will be bringing in pt's own Balasalazide. Original Note: Called and updated pt's .
[2020-11-03 16:00] VITALS: BP 125/65; PULSE 75; RESP 16; TEMP 36.5; O2SAT 98
[2020-11-03] MEDS: Tuberculin,Purif.prot.deriv. 50 TU/ML Vial 5 ML ID (18:57)
[2020-11-03 19:01] VITALS: BP 125/65; PULSE 75
[2020-11-03] MEDS: Atorvastatin Calcium 40 MG Tablet PO (21:54)
[2020-11-04 04:09] VITALS: BP 146/66; PULSE 72
[2020-11-04] MEDS: Metoprolol Tartrate 25 MG Tablet PO ×2 (04:09→17:51)
[2020-11-04] MEDS: Vitamin B Comp W-C Capsule 1 CAP PO (04:10)
[2020-11-04] MEDS: Amiodarone 200 MG Tablet PO (04:10)
[2020-11-04] MEDS: Levothyroxine 50 MCG Tablet PO (04:10)
[2020-11-04] MEDS: Pantoprazole Sodium 40 MG Tablet PO (04:10)
[2020-11-04] MEDS: BALSALAZIDE DISODIUM 750 MG CAPSULE 2250 MG PO ×2 (04:11→17:52)
[2020-11-04 06:06] VITALS: BP 144/66; PULSE 72; RESP 16; TEMP 36.6; O2SAT 98
[2020-11-04] MEDS: 0.9% Saline Lock 10 ML Syringe IV ×2 (06:15→17:54)
[2020-11-04 07:45] LABS: Absolute Lymphocyte Count 0.57 X10^3/uL (0.83-4.51); Absolute Neutrophil Count 10.7 X10^3/uL (2.0-7.7); Basophil# 0.03 X10^3/uL; Basophil% 0.2 % (0-1); Eosinophil# 0.14 X10^3/uL; Eosinophils% 1.1 % (0-5); Hematocrit 33.1 % (40-54); Lymphocyte # 0.57 X10^3/ul (0.83-4.51); Lymphocyte % 4.5 % (19-41); Mean Corp Hgb Conc 33.2 g/dL (32-36); Mean Corpuscular Hgb 32.7 pg (27.0-32.0); Mean Corpuscular Volume 98.5 fL (80-94); Mean Platelet Vol. 10.1 fl (6.2-12.0); Monocyte# 1.03 X10^3/uL; Monocyte% 8.2 % (0-10); NRBC Flagged by Analyzer 0 % (0-5); Neutrophil # 10.69 X10^3/uL (2.7-7.7); Neutrophil % 84.8 % (47-70); POSITIVE DIFFERENTIAL YES; Platelet Count 190 K/mm3 (150-450); RBC Distribution Width CV 16.6 % (11.6-14.6); RBC Distribution Width SD 59.8 fl (35.1-43.9); Red Blood Count 3.36 M/mm3 (4.6-6.2); White Blood Count 12.6 K/mm3 (4.4-11.0)
[2020-11-04 07:48] LABS: Differential Indicated SCAN CRITERIA MET
[2020-11-04 09:06] LABS: Differential Comment SCANNED
[2020-11-04] MEDS: Aspirin E.C. 81 MG Tablet PO (09:28)
[2020-11-04] MEDS: Ferrous Sulfate 325 MG Tablet PO (09:28)
[2020-11-04 13:37] VITALS: BP 152/62; PULSE 71; RESP 18; TEMP 36.4; O2SAT 97
--- NOTE | 2020-11-04 14:22 | NURSING ---
therapy reported pt dressing fell off LT elbow. cleansed skin tear w/NS, applied adaptic, 2x2 and wrapped with sofform
--- NOTE | 2020-11-04 15:02 | NURSING ---
pt remains in special contact isolation, all therapy and treatments provided in room
[2020-11-04 17:51] VITALS: PULSE 78
--- NOTE | 2020-11-04 20:45 | NURSING ---
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 Dressing to LFA dislodged and removed per this nurse. Dressing change completed per dr order- site to lateral aspect of left lower arm cleansed w/ NS, pat dry, adaptic applied to wound bed that is dry and pink, 4x4 folded lengthwise, and secured w/ hypoallergenic tape to all 4 sides per pt request. Pt refused to have roll gauze applied over 4x4 keeping tape off skin. No sxs infection noted to wound bed and periwound skin. Pt tolerated dressing change well.
[2020-11-04] MEDS: Atorvastatin Calcium 40 MG Tablet PO (22:51)
[2020-11-05 07:07] VITALS: BP 116/62; PULSE 82
[2020-11-05] MEDS: Metoprolol Tartrate 25 MG Tablet PO ×2 (07:07→17:17)
[2020-11-05] MEDS: Amiodarone 200 MG Tablet PO (07:07)
[2020-11-05] MEDS: Vitamin B Comp W-C Capsule 1 CAP PO (07:07)
[2020-11-05] MEDS: Levothyroxine 50 MCG Tablet PO (07:08)
[2020-11-05] MEDS: Pantoprazole Sodium 40 MG Tablet PO (07:08)
[2020-11-05 07:16] VITALS: BP 116/62; PULSE 82; RESP 16; TEMP 36.7; O2SAT 96
[2020-11-05] MEDS: BALSALAZIDE DISODIUM 750 MG CAPSULE 2250 MG PO ×2 (07:16→17:16)
[2020-11-05] MEDS: Aspirin E.C. 81 MG Tablet PO (07:59)
[2020-11-05] MEDS: Ferrous Sulfate 325 MG Tablet PO (07:59)
--- NOTE | 2020-11-05 09:55 | NURSING ---
pt remains in special contact isolation, all treatments provided in pt room
[2020-11-05 12:17] VITALS: PULSE 90; RESP 16; O2SAT 98
[2020-11-05 14:55] VITALS: BP 176/72; PULSE 76; RESP 22; TEMP 36; O2SAT 93
[2020-11-05 17:17] VITALS: PULSE 76
[2020-11-05] MEDS: Atorvastatin Calcium 40 MG Tablet PO (22:57)
[2020-11-06 06:20] VITALS: BP 114/75; PULSE 82; RESP 18; TEMP 36.3; O2SAT 96
[2020-11-06 06:23] VITALS: BP 114/75; PULSE 82
[2020-11-06] MEDS: Levothyroxine 50 MCG Tablet PO (06:23)
[2020-11-06] MEDS: Metoprolol Tartrate 25 MG Tablet PO ×2 (06:23→17:37)
[2020-11-06] MEDS: Pantoprazole Sodium 40 MG Tablet PO (06:23)
[2020-11-06] MEDS: Vitamin B Comp W-C Capsule 1 CAP PO (06:24)
[2020-11-06] MEDS: BALSALAZIDE DISODIUM 750 MG CAPSULE 2250 MG PO ×2 (06:24→17:49)
[2020-11-06] MEDS: Amiodarone 200 MG Tablet PO (08:38)
[2020-11-06] MEDS: Aspirin E.C. 81 MG Tablet PO (08:38)
[2020-11-06] MEDS: Ferrous Sulfate 325 MG Tablet PO (08:38)
[2020-11-06 13:56] VITALS: BP 137/55; PULSE 69; RESP 18; TEMP 36.4; O2SAT 96
[2020-11-06 17:37] VITALS: PULSE 69
[2020-11-06] MEDS: Atorvastatin Calcium 40 MG Tablet PO (21:25)
[2020-11-06 22:00] VITALS: PULSE 85; RESP 18; O2SAT 95
[2020-11-07 05:00] VITALS: BP 145/65; PULSE 77; RESP 16; TEMP 36.6; O2SAT 95
[2020-11-07] MEDS: Pantoprazole Sodium 40 MG Tablet PO (06:40)
[2020-11-07] MEDS: Levothyroxine 50 MCG Tablet PO (06:40)
[2020-11-07 06:41] VITALS: BP 145/65; PULSE 77
[2020-11-07] MEDS: Metoprolol Tartrate 25 MG Tablet PO ×2 (06:41→17:08)
[2020-11-07] MEDS: Vitamin B Comp W-C Capsule 1 CAP PO (06:42)
[2020-11-07] MEDS: BALSALAZIDE DISODIUM 750 MG CAPSULE 2250 MG PO ×2 (06:44→17:14)
[2020-11-07] MEDS: Aspirin E.C. 81 MG Tablet PO (09:39)
[2020-11-07] MEDS: Amiodarone 200 MG Tablet PO (09:39)
[2020-11-07] MEDS: Ferrous Sulfate 325 MG Tablet PO (09:39)
[2020-11-07 10:00] VITALS: RESP 16
--- NOTE | 2020-11-07 11:53 | NURSING ---
Pt stated he already had the Pneumonia vaccine and refused.
[2020-11-07 14:30] VITALS: BP 137/68; PULSE 70; RESP 18; TEMP 36.7; O2SAT 94
[2020-11-07 17:08] VITALS: BP 147/56; PULSE 74
[2020-11-07] MEDS: Atorvastatin Calcium 40 MG Tablet PO (21:19)
[2020-11-08 06:04] VITALS: BP 144/64; PULSE 81; RESP 18; TEMP 36.6; O2SAT 97
[2020-11-08] MEDS: BALSALAZIDE DISODIUM 750 MG CAPSULE 2250 MG PO ×2 (06:06→18:19)
[2020-11-08] MEDS: Levothyroxine 50 MCG Tablet PO (06:07)
[2020-11-08 06:08] VITALS: BP 144/64; PULSE 81
[2020-11-08] MEDS: Vitamin B Comp W-C Capsule 1 CAP PO (06:08)
[2020-11-08] MEDS: Pantoprazole Sodium 40 MG Tablet PO (06:08)
[2020-11-08] MEDS: Metoprolol Tartrate 25 MG Tablet PO ×2 (06:08→18:19)
[2020-11-08] MEDS: Ferrous Sulfate 325 MG Tablet PO (09:11)
[2020-11-08] MEDS: Amiodarone 200 MG Tablet PO (09:11)
[2020-11-08] MEDS: Aspirin E.C. 81 MG Tablet PO (09:11)
--- NOTE | 2020-11-08 14:38 | CASEMGMT ---
Social Work IDT met with patient and pt's for care plan meeting. Son and DIL via conference call. Discussed patient's progress in therapy and nursing. Pt progressing well, however, still needing some assistance with LE ADLS. Explained Medicare benefit. Pt requesting to DC 11/10. IDT agreeable. Discussed assisting with LE care and/or pt getting AE to utilize at home. Both agreeable. Discussed HHC vs OP therapy. Pt prefers OP therapy at [facility]. Referral made for PT/OT. Scheduled appt 11/13 at 12 pm. Provided information to pt and . to transport home. No DME needs. Plan: DC home with 11/10, [facility] PT/OT NIKITA IsraelW
[2020-11-08 14:58] VITALS: BP 158/56; PULSE 72; RESP 18; TEMP 36.7; O2SAT 98
[2020-11-08 18:19] VITALS: BP 157/68; PULSE 74
[2020-11-08 22:00] VITALS: RESP 16
[2020-11-08] MEDS: Atorvastatin Calcium 40 MG Tablet PO (22:35)
--- NOTE | 2020-11-09 05:04 | PCM.DC.SUM ---
Providers Date of Admission: 11/02/20 Primary Care Physician: Dr. Rosa Maria Santacruz MD Reason For Visit: SYNCOPY ELEVATED WBC Diagnosis Discharge Diagnosis (1) Debility: Status: Acute Code(s): R53.81 - Other malaise (2) Near syncope: Status: Acute Code(s): R55 - Syncope and collapse (3) Clostridioides difficile infection: Status: Acute Code(s): A49.8 - Other bacterial infections of unspecified site (4) Anemia: Status: Acute Code(s): D64.9 - Anemia, unspecified (5) Coronary artery disease: Status: Acute Code(s): I25.10 - Atherosclerotic heart disease of [place] coronary artery without angina pectoris (6) Atrial fibrillation: Status: Acute Code(s): I48.91 - Unspecified atrial fibrillation (7) Carotid artery stenosis: Status: Acute Code(s): I65.29 - Occlusion and stenosis of unspecified carotid artery (8) Hypertension: Status: Chronic Code(s): I10 - Essential (primary) hypertension (9) Hyperlipidemia: Status: Acute Code(s): E78.5 - Hyperlipidemia, unspecified (10) Ulcerative colitis: Status: Acute Code(s): K51.90 - Ulcerative colitis, unspecified, without complications (11) Gastroesophageal reflux disease: Status: Acute Code(s): K21.9 - Gastro-esophageal reflux disease without esophagitis (12) Hypothyroidism: Status: Acute Code(s): E03.9 - Hypothyroidism, unspecified (13) Alcohol abuse: Status: Acute Code(s): F10.10 - Alcohol abuse, uncomplicated Medications at Discharge Home Medications ferrous sulfate 325 mg PO DAILY 05/28/15 zinc gluconate 50 mg PO DAILY 05/28/15 vitamin B complex 1 each PO DAILY 02/07/16 aspirin 81 mg PO DAILY@0800 08/29/16 pantoprazole 40 mg PO DAILY 08/29/16 balsalazide 750 mg capsule 2,250 mg PO BID cap 03/03/20 levothyroxine 50 mcg tablet 50 mcg PO DAILY 06/13/20 metoprolol tartrate 25 mg tablet 25 mg PO BID tablet 10/11/20 Eliquis 2.5 mg PO BID 11/02/20 Lactobacillus acidophilus 100 mg PO BID 11/02/20 amiodarone 200 mg PO DAILY 11/02/20 atorvastatin 40 mg PO DAILY 11/02/20 Hospital Course Operations None Procedures None Summary of Care Provided Minutes Spent on Discharge: 35 Hospital Course: 80 year old male with below past medical history hospitalized for near syncope secondary to dehydration from clostridium difficile colitis, complicated by progressive anemia, admitted to TCU with debility, here for rehabilitation, strengthening, prior to discharge home with . Discharge home with 11/10/2020, [facility] PT/OT. Physical Exam Const alert and oriented x3 General Appearance: cooperative HEENT normocephalic Eyes PERRL and EOMs intact bilaterally Neck supple, no JVD and no carotid bruits Resp normal respiratory effort, normal air movement and clear to auscultation bilaterally Cardio regular rate and regular rhythm GI normal to inspection, nondistended, normoactive bowel sounds, non-tender and non-distended Extremity normal capillary refill General Extremity: Negative for edema Skin no rashes or lesions noted General Skin Exam: no breakdown Psych affect normal Appearance: appropriate ABG / Lab / Microbiology Data Result Diagrams: 11/04/20 07:00 11/03/20 05:10 D/C Instructions Discharge Diet: No restrictions Discharge Activity: Return to Normal Activity, May Shower and Use Walker Weight Bearing Status: Weight bearing as tolerated Call your doctor if you observe: Fever of 101 or Higher, Inability to urinate, Inability to have a bowel movement, Shortness of breath, Fainting spells, Chest pain and Uncontrolled pain Additional Instructions: Discharge home with 11/10/2020, [facility] PT/OT. Please Follow Up With: Simba Pringle MD When: 2 weeks. Meaningful Use Info Meaningful Use Diagnoses (Choose all that apply): None applicable Discharge Plan Admission Admit Date/Time: 11/02/20 17:00 Primary Reason for Your Visit: Debility Attending Provider: Jesu Hale Chi Primary Care Provider: Rosa Maria Santacruz Instructions Additional Instructions / Restrictions: Discharge home with 11/10/2020, [facility] PT/OT. Discharge Orders/Prescriptions Prescriptions: Continued balsalazide [Colazal] 750 mg capsule 2,250 mg PO BID RF: 0 metoprolol tartrate 25 mg tablet 25 mg PO BID RF: 0 ferrous sulfate 325 MG tablet 325 mg PO DAILY RF: 0 zinc gluconate 50 MG tablet 50 mg PO DAILY RF: 0 vitamin B complex 1 EACH capsule 1 each PO DAILY RF: 0 pantoprazole 40 MG tablet 40 mg PO DAILY RF: 0 aspirin 81 MG tablet 81 mg PO DAILY@0800 RF: 0 atorvastatin 40 mg tablet 40 mg PO DAILY RF: 0 amiodarone 200 mg tablet 200 mg PO DAILY RF: 0 Lactobacillus acidophilus Capsule 100 mg PO BID RF: 0 Eliquis 2.5 mg tablet 2.5 mg PO BID RF: 0 levothyroxine 50 mcg tablet 50 mcg PO DAILY RF: 0 Discontinued Firvanq 25 mg/mL Recon Soln 125 mg PO Q6 9 Days Qty: 180 RF: 0 Referrals / Follow Up: Rosa Maria Santacruz MD [Primary Care Provider] - Disposition Disposition (needs filled in before D/C Order can be placed): Home, self care
[2020-11-09] MEDS: BALSALAZIDE DISODIUM 750 MG CAPSULE 2250 MG PO ×2 (05:30→17:00)
[2020-11-09 05:31] VITALS: BP 107/48; PULSE 78
[2020-11-09] MEDS: Metoprolol Tartrate 25 MG Tablet PO ×2 (05:31→17:00)
[2020-11-09] MEDS: Levothyroxine 50 MCG Tablet PO (05:31)
[2020-11-09] MEDS: Pantoprazole Sodium 40 MG Tablet PO (05:31)
[2020-11-09] MEDS: Vitamin B Comp W-C Capsule 1 CAP PO (05:33)
[2020-11-09 05:34] VITALS: BP 107/48; PULSE 78; RESP 16; TEMP 36.6; O2SAT 97
[2020-11-09 07:54] VITALS: BP 126/69; PULSE 77
[2020-11-09] MEDS: Aspirin E.C. 81 MG Tablet PO (07:55)
[2020-11-09] MEDS: Amiodarone 200 MG Tablet PO (07:55)
[2020-11-09] MEDS: Ferrous Sulfate 325 MG Tablet PO (07:55)
--- NOTE | 2020-11-09 09:58 | NURSING ---
AID CALLED THIS NURSE TO ROOM. PT HAS A LOT OF BLOOD IN HIS LOOSE STOOL. RN AWARE.
[2020-11-09 11:29] VITALS: PULSE 86; RESP 18; O2SAT 95
--- NOTE | 2020-11-09 13:36 | NURSING ---
Addendum entered by Grace Singh 11/09/20 15:19: DR Hale updated on HGB 10.5, known history of ulcerative colitis. ok for pt to go home as scheduled tomorrow but needs to f/u with family doctor GORDO. Original Note: pt called nurse to BR, pt noted to have dark brown stool with bright red blood in it. dr hale notified, new order to check stat h/h. pt updated. pt did get 2 units blood while on admit to hosptial.
[2020-11-09 14:17] LABS: Hematocrit 33.1 % (40-54); Hemoglobin 10.5 g/dL (13.0-16.5)
[2020-11-09 14:20] VITALS: BP 138/58; PULSE 77; RESP 16; TEMP 36.6; O2SAT 97
[2020-11-09 17:00] VITALS: PULSE 77
[2020-11-09] MEDS: Atorvastatin Calcium 40 MG Tablet PO (20:47)
[2020-11-10 05:38] LABS: Absolute Lymphocyte Count 0.61 X10^3/uL (0.83-4.51); Absolute Neutrophil Count 7.9 X10^3/uL (2.0-7.7); Basophil# 0.03 X10^3/uL; Basophil% 0.3 % (0-1); Hematocrit 28.4 % (40-54); Lymphocyte # 0.61 X10^3/ul (0.83-4.51); Lymphocyte % 6.4 % (19-41); Mean Corp Hgb Conc 31.7 g/dL (32-36); Mean Corpuscular Hgb 32.7 pg (27.0-32.0); Mean Corpuscular Volume 103.3 fL (80-94); Mean Platelet Vol. 9.2 fl (6.2-12.0); Monocyte# 0.83 X10^3/uL; Monocyte% 8.7 % (0-10); NRBC Flagged by Analyzer 0 % (0-5); Neutrophil # 7.94 X10^3/uL (2.7-7.7); Neutrophil % 83.1 % (47-70); Platelet Count 230 K/mm3 (150-450); RBC Distribution Width CV 16.6 % (11.6-14.6); RBC Distribution Width SD 62.9 fl (35.1-43.9); Red Blood Count 2.75 M/mm3 (4.6-6.2); White Blood Count 9.6 K/mm3 (4.4-11.0)
[2020-11-10 06:04] LABS: Anion Gap 3 (5-15); BUN 35 mg/dL (7-18); BUN/Creat Ratio 21.7 RATIO (10-20); Calcium,Total 7.9 mg/dL (8.5-10.1); Chloride 106 mmol/L (98-107); Creatinine, Serum 1.61 mg/dL (0.70-1.30); EST Glomerular Filtration Rate 44 mL/min (>60); Est Glom Filt Rate - Afr Amer 54 mL/min (>60); Estimated Creatinine Clearance 39.62 ml/min; Glucose 93 mg/dL (74-106); Potassium 5.1 mmol/L (3.5-5.1); Sodium Level 137 mmol/L (136-145)
[2020-11-10 06:42] VITALS: BP 155/72; PULSE 77; RESP 18; TEMP 36.7; O2SAT 96
[2020-11-10 06:44] VITALS: PULSE 77
[2020-11-10] MEDS: Pantoprazole Sodium 40 MG Tablet PO (06:44)
[2020-11-10] MEDS: Ferrous Sulfate 325 MG Tablet PO (06:44)
[2020-11-10] MEDS: Levothyroxine 50 MCG Tablet PO (06:44)
[2020-11-10] MEDS: BALSALAZIDE DISODIUM 750 MG CAPSULE 2250 MG PO (06:44)
[2020-11-10] MEDS: Metoprolol Tartrate 25 MG Tablet PO (06:44)
[2020-11-10] MEDS: Vitamin B Comp W-C Capsule 1 CAP PO (06:45)
[2020-11-10] MEDS: Aspirin E.C. 81 MG Tablet PO (08:47)
[2020-11-10] MEDS: Amiodarone 200 MG Tablet PO (08:47)
[2020-11-10 09:11] VITALS: PULSE 74; RESP 18; O2SAT 98
[2020-11-10 10:57] VITALS: BP 158/64; PULSE 74; RESP 18; TEMP 36.9; O2SAT 98
--- NOTE | 2020-11-15 07:51 | MDS.RN ---
Information for the mds was obtained from review of the clinical record, interview of resident, staff, and direct observation of resident's care.
== END 2020-11-10 10:45 | disposition home or self-care (01) | DRG 372 ==
PROVIDERS: Admitting Provider Family Medicine Geriatric Medicine; PCP Family Medicine; Visit Provider Family Medicine Geriatric Medicine
DX: A04.72 Enterocolitis due to Clostridium difficile, not specified as recurrent (principal); K51.90 Ulcerative colitis, unspecified, without complications; I25.10 Atherosclerotic heart disease of native coronary artery without angina pectoris; I48.91 Unspecified atrial fibrillation; I10 Essential (primary) hypertension; K21.9 Gastro-esophageal reflux disease without esophagitis; E03.9 Hypothyroidism, unspecified; F10.10 Alcohol abuse, uncomplicated; D50.9 Iron deficiency anemia, unspecified; E78.5 Hyperlipidemia, unspecified; E53.9 Vitamin B deficiency, unspecified; Z87.891 Personal history of nicotine dependence; Z79.899 Other long term (current) drug therapy; Z79.01 Long term (current) use 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; Z79.82 Long term (current) use of aspirin; Z95.1 Presence of aortocoronary bypass graft
CPT/HCPCS: 36415; 80048; 85014; 85018; 85025; 86850; 86900; 86901; 86920; 86922; 87635; 97110; 97116; 97162; 97166; 97530; 97535; A4216; U0002

== ENCOUNTER 2020-11-03 10:25 | Outpatient (CLI) | payer MEDICARE, OTHER, SELFPAY ==
[2020-11-02 18:10] VITALS: BMI 25.3
[2020-11-03] VITALS (9 sets, daily range): BP systolic 132–158; BP diastolic 60–74; PULSE 60–83; RESP 18–20; TEMP 36.3–37.2; O2SAT 97–99
== END 2020-11-03 17:35 ==
LOC: MS3OUT 10:28 → MS3 10:28
PROVIDERS: PCP Family Medicine; Referring Provider Family Medicine Geriatric Medicine; Visit Provider Family Medicine Geriatric Medicine
DX: D50.0 Iron deficiency anemia secondary to blood loss (chronic) (principal); K92.2 Gastrointestinal hemorrhage, unspecified
CPT/HCPCS: 36415; 36430; 86850; 86900; 86901; 86920; 86922; P9016

== ENCOUNTER → 2020-11-17 13:32 | Outpatient (CLI) | payer MEDICARE, OTHER, SELFPAY ==
[2020-11-02 18:10] VITALS: BMI 25.3
[2020-11-17 15:26] LABS: Absolute Lymphocyte Count 0.36 X10^3/uL (0.83-4.51); Absolute Neutrophil Count 17.9 X10^3/uL (2.0-7.7); Basophil# 0.07 X10^3/uL; Basophil% 0.3 % (0-1); Eosinophil# 0.01 X10^3/uL; Hematocrit 34.2 % (40-54); Hemoglobin 10.6 g/dL (13.0-16.5); Lymphocyte # 0.36 X10^3/ul (0.83-4.51); Lymphocyte % 1.8 % (19-41); Mean Corpuscular Volume 103.3 fL (80-94); Mean Platelet Vol. 10.4 fl (6.2-12.0); Monocyte# 1.87 X10^3/uL; Monocyte% 9.2 % (0-10); NRBC Flagged by Analyzer 0 % (0-5); Neutrophil # 17.89 X10^3/uL (2.7-7.7); Neutrophil % 87.8 % (47-70); POSITIVE DIFFERENTIAL YES; POSITIVE MORPHOLOGY YES; Platelet Count 234 K/mm3 (150-450); RBC Distribution Width SD 64.8 fl (35.1-43.9); Red Blood Count 3.31 M/mm3 (4.6-6.2); White Blood Count 20.4 K/mm3 (4.4-11.0)
[2020-11-17 15:33] LABS: Differential Indicated SCAN CRITERIA MET
[2020-11-17 15:45] LABS: ALB/GLOB Ratio 0.6 RATIO (0.9-2.4); AST(SGOT) 22 U/L (15-37); Alanine Aminotransfer ALT/SGPT 19 U/L (16-61); Albumin, Serum 1.9 g/dL (3.2-5.0); Alkaline Phosphatase 246 U/L (45-117); Anion Gap 9 (5-15); BUN 47 mg/dL (7-18); BUN/Creat Ratio 18.6 RATIO (10-20); Calcium,Total 8.2 mg/dL (8.5-10.1); Chloride 106 mmol/L (98-107); Creatinine, Serum 2.53 mg/dL (0.70-1.30); EST Glomerular Filtration Rate 26 mL/min (>60); Est Glom Filt Rate - Afr Amer 32 mL/min (>60); Globulin 3.1 g/dL (2.2-4.2); Glucose 129 mg/dL (74-106); Sodium Level 139 mmol/L (136-145)
[2020-11-17 15:57] LABS: Differential Comment SCANNED
[2020-11-20 13:25] LABS: Pathologist Review Reviewed
== END ==
PROVIDERS: PCP Family Medicine; Referring Provider Family Medicine; Visit Provider Family Medicine
DX: A49.8 Other bacterial infections of unspecified site (principal); J86.9 Pyothorax without fistula
CPT/HCPCS: 36415; 80053; 85025; 87493

== ENCOUNTER → 2021-01-26 10:25 | Outpatient (CLI) | payer MEDICARE, OTHER, SELFPAY ==
[2021-01-19 11:01] VITALS: BMI 24.1
[2021-01-26 12:32] LABS: AST(SGOT) 18 U/L (15-37); Alanine Aminotransfer ALT/SGPT 16 U/L (16-61); Albumin, Serum 3.3 g/dL (3.2-5.0); Alkaline Phosphatase 86 U/L (45-117); Bilirubin, Direct 0.17 mg/dL (0.00-0.30); Cholesterol 153 mg/dL (200); Globulin 2.9 g/dL (2.2-4.2); High Density Lipoprotein 77 mg/dL; Protein, Total 6.2 g/dL (6.4-8.2); Triglycerides 70 mg/dL; Very Low Density Lipoprotein 14 mg/dL (5-40)
== END ==
PROVIDERS: PCP Family Medicine; Referring Provider Nurse Practitioner Family; Visit Provider Nurse Practitioner Family
DX: E78.00 Pure hypercholesterolemia, unspecified (principal); E78.5 Hyperlipidemia, unspecified
CPT/HCPCS: 36415; 80061; 80076

== ENCOUNTER → 2021-02-09 08:02 | Outpatient (CLI) | payer MEDICARE, OTHER, SELFPAY ==
[2021-01-19 11:01] VITALS: BMI 24.1
--- NOTE | 2021-02-09 08:06 | CDU_ITS ---
Reason For Study: Carotid artery stenosis Rt. Velocities/BP Lt. Velocities/BP Prox CCA 68.2/8.2 cm/sec. Prox CCA 78.7/8.8 cm/sec. Mid CCA 77.3/10.8 cm/sec. Mid CCA 61.7/10.7 cm/sec. Dist CCA 82.5/12.1 cm/sec. Dist CCA 57.9/10.7 cm/sec. Prox ICA 160.9/38 cm/sec. Prox ICA 156.3/26.7 cm/sec. Mid ICA 97.4/22.5 cm/sec. Mid ICA 90/16.3 cm/sec. Dist ICA 113.8/24.3 cm/sec. Dist ICA 96.2/26.2 cm/sec. Rt. ICA/CCA = 2.08. Lt. ICA/CCA = 2.53. Prox ECA 85.1 cm/sec. Prox ECA 428.6/10.7 cm/sec. Rt. Vert. 53.2/8.8 cm/sec. Lt. Vert. 45.6/11.6 cm/sec. Right Extracranial There is heterogeneous, irregular atherosclerotic plaque noted in the right common carotid artery. There is heterogeneous, irregular atherosclerotic plaque noted in the right internal carotid artery. There is intimal thickening but no significant atherosclerotic plaque noted in the right external carotid artery. Antegrade flow is noted in the right vertebral artery. Left Extracranial There is intimal thickening but no significant atherosclerotic plaque noted in the left common carotid artery. There is heterogeneous, irregular atherosclerotic plaque noted in the left internal carotid artery. There is heterogeneous, irregular atherosclerotic plaque noted in the left external carotid artery. Antegrade flow is noted in the left vertebral artery. There is heterogeneous, irregular atherosclerotic plaque noted in the left bulb. Procedure Carotid Duplex 32181. This is a Carotid Duplex examination using B-mode, color flow and specral Doppler. Exam performed in department. VL/Carotid Duplex Ultrasound Interpretation Summary Moderate (50-69%) stenosis right extracranial internal carotid. Moderate (50-69 %) stenosis left extracranial internal carotid. Flow within the vertebral arteries is antegrade bilaterally. Ordering Physician: Singh Khanna Referring Physician: Rosa Maria Santacruz M.D. Performed By: Fe Turner RVT
--- NOTE | 2021-02-09 08:06 | AAVD_ITS ---
Reason For Study: Mesenteric artery stenosis Aorta Measurements Prox Aorta 130.8 cm/sec. Mid Aorta 150.8 cm/sec. Distal Aorta 139.8 cm/sec. SMA Origin 434.8 cm/sec. SMA Prox 511.6 cm/sec. SMA Mid 346.3 cm/sec. SMA Distal 260.2 cm/sec. Celiac artery 48.5 cm/sec. Hepatic artery 318.5 cm/sec. Splenic artery 165.3 cm/sec. LELAND Origin 605.6 cm/sec LELAND Prox 185.6 cm/sec. LELAND Mid 138.1 cm/sec. LELAND Distal 102.8 cm/sec. Procedure Aorta IVC Iliac vasculature or bypass grafts [id number]. Exam performed in department. 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 Ordering Physician: Singh Khanna Referring Physician: Rosa Maria Santacruz M.D. Performed By: Fe Turner RVT
--- NOTE | 2021-02-09 08:07 | ART_ITS ---
Reason For Study: Subclavian artery stenosis Procedure A bilateral upper extremity continuous wave Doppler with analog waveform analysis and segmental pressures. Left Segmental Pressures Left brachial= 197mmHg. Left ulnar= 215mmHg. Left radial= 197mmHg. Left digit = 189 mmHg. The left radial waveforms are triphasic. The left ulnar waveforms are triphasic. Right Segmental Pressures Right brachial= 211mmHg. Right ulnar= 237mmHg. Right radial= 240mmHg. Right digit = 0.94 mmHg. The right radial waveforms are triphasic. The right ulnar waveforms are triphasic. Indices The wrist-brachial index by radial artery is 1.14. The wrist-brachial artery index by ulnar artery is 1.12. The right digital-brachial index is 0.94. The left digital-brachial index is 0.90. The wrist-brachial index by radial artery is 0.93. The wrist-brachial artery index by ulnar artery is 1.02. Pt did not take BP medicine, will take once they get home. VL/Ankle Brachial Index Interpretation Summary Bilateral upper extremity triphasic flow noted throughout. Wrist brachial index of 1.14 and 1.02. Finger brachial index of 0.94 and 0.90. Ordering Physician: Singh Khanna Referring Physician: Rosa Maria Santacruz M.D. Performed By: Fe Turner RVT
== END ==
PROVIDERS: PCP Family Medicine; Referring Provider Surgery Vascular Surgery; Visit Provider Surgery Vascular Surgery
DX: I65.23 Occlusion and stenosis of bilateral carotid arteries (principal); I77.1 Stricture of artery; I77.4 Celiac artery compression syndrome
CPT/HCPCS: 93880; 93922; 93931; 93978

== ENCOUNTER → 2021-04-11 14:29 | Outpatient (CLI) | payer MEDICARE, OTHER, SELFPAY ==
[2021-04-11 17:43] LABS: Absolute Lymphocyte Count 0.56 X10^3/uL (0.83-4.51); Absolute Neutrophil Count 4.2 X10^3/uL (2.0-7.7); Basophil# 0.04 X10^3/uL; Basophil% 0.7 % (0-1); Eosinophil# 0.12 X10^3/uL; Eosinophils% 2.2 % (0-5); Hematocrit 28.9 % (40-54); Hemoglobin 9.4 g/dL (13.0-16.5); Lymphocyte # 0.56 X10^3/ul (0.83-4.51); Lymphocyte % 10.2 % (19-41); Mean Corp Hgb Conc 32.5 g/dL (32-36); Mean Corpuscular Hgb 35.6 pg (27.0-32.0); Mean Corpuscular Volume 109.5 fL (80-94); Mean Platelet Vol. 9.9 fl (6.2-12.0); Monocyte# 0.53 X10^3/uL; Monocyte% 9.7 % (0-10); NRBC Flagged by Analyzer 0 % (0-5); Neutrophil # 4.22 X10^3/uL (2.7-7.7); Neutrophil % 76.8 % (47-70); POSITIVE DIFFERENTIAL YES; Platelet Count 131 K/mm3 (150-450); RBC Distribution Width CV 14.9 % (11.6-14.6); RBC Distribution Width SD 59.7 fl (35.1-43.9); Red Blood Count 2.64 M/mm3 (4.6-6.2); White Blood Count 5.5 K/mm3 (4.4-11.0)
[2021-04-11 17:53] LABS: Differential Indicated SCAN CRITERIA MET
[2021-04-11 18:04] LABS: AST(SGOT) 13 U/L (15-37); Alanine Aminotransfer ALT/SGPT 14 U/L (16-61); Albumin, Serum 3.2 g/dL (3.2-5.0); Alkaline Phosphatase 77 U/L (45-117); Bilirubin, Direct 0.39 mg/dL (0.00-0.30); Globulin 3.2 g/dL (2.2-4.2); Protein, Total 6.4 g/dL (6.4-8.2); Thyroid Stim Hormone (TSH) 1.18 uIU/mL (0.358-3.74)
[2021-04-11 18:06] LABS: Erythrocyte Sedimentation Rate 6 mm/hr (0-20)
[2021-04-11 18:14] LABS: Differential Comment SCANNED
== END ==
PROVIDERS: PCP Family Medicine; Referring Provider Family Medicine; Visit Provider Family Medicine
DX: I25.10 Atherosclerotic heart disease of native coronary artery without angina pectoris (principal); R53.81 Other malaise
CPT/HCPCS: 36415; 80076; 82330; 84443; 85025; 85652

== ENCOUNTER → 2021-04-24 14:07 | Outpatient (CLI) | payer MEDICARE, OTHER, SELFPAY ==
[2021-04-24 17:35] LABS: Hemoglobin 8.6 g/dL (13.0-16.5); Mean Corp Hgb Conc 30.7 g/dL (32-36); Mean Corpuscular Hgb 36.1 pg (27.0-32.0); Mean Corpuscular Volume 117.6 fL (80-94); POSITIVE MORPHOLOGY YES; Platelet Count 186 K/mm3 (150-450); RBC Distribution Width CV 18.2 % (11.6-14.6); RBC Distribution Width SD 77.3 fl (35.1-43.9); Red Blood Count 2.38 M/mm3 (4.6-6.2); White Blood Count 4.4 K/mm3 (4.4-11.0)
[2021-04-24 18:06] LABS: Scan Indicated on CBC? Y/N YES- FLAGS NOTED
[2021-04-24 18:12] LABS: Anion Gap 6 (5-15); BUN 35 mg/dL (7-18); BUN/Creat Ratio 15.2 RATIO (10-20); Calcium,Total 8.4 mg/dL (8.5-10.1); Chloride 109 mmol/L (98-107); EST Glomerular Filtration Rate 29 mL/min (>60); Est Glom Filt Rate - Afr Amer 35 mL/min (>60); Glucose 123 mg/dL (74-106); Potassium 4.7 mmol/L (3.5-5.1); Sodium Level 141 mmol/L (136-145)
== END ==
PROVIDERS: Anesthesiology; PCP Family Medicine; Visit Provider Surgery
DX: Z01.818 Encounter for other preprocedural examination (principal)
CPT/HCPCS: 36415; 80048; 85027

== ENCOUNTER → 2021-04-30 16:09 | Outpatient (CLI) | payer MEDICARE, OTHER, SELFPAY | PROVIDERS: PCP Family Medicine; Referring Provider Internal Medicine Gastroenterology; Visit Provider Internal Medicine Gastroenterology | DX: D50.9 Iron deficiency anemia, unspecified (principal); R06.02 Shortness of breath | CPT/HCPCS: 82728; 83540; 86850; 86900; 86901; 86920; 86922 ==

== ENCOUNTER → 2021-05-02 07:59 | Outpatient (CLI) | payer MEDICARE, OTHER, SELFPAY ==
[2021-04-30 17:58] LABS: Ferritin 510 ng/mL (26-388); Iron 69 ug/dL (65-175)
[2021-05-02] VITALS (8 sets, daily range): BP systolic 108–192; BP diastolic 40–74; PULSE 52–62; RESP 16; TEMP 35.8–36.5; O2SAT 98–100; BMI 25.1
[2021-05-02] MEDS: 0.9% NaCl Peripheral Flush Adult/Peds IV (08:30)
== END ==
PROVIDERS: PCP Family Medicine; Referring Provider Internal Medicine Gastroenterology; Visit Provider Internal Medicine Gastroenterology
DX: D50.9 Iron deficiency anemia, unspecified (principal)
CPT/HCPCS: 36430; 82728; 83540; 86850; 86900; 86901; 86920; 86922; J7040; P9016; A4216

== ENCOUNTER → 2021-05-11 17:09 | Outpatient (CLI) | payer MEDICARE, OTHER, SELFPAY ==
--- NOTE | 2021-05-11 17:17 | RAD_ITS ---
STUDY: X-RAY - PELVIS REASON FOR EXAM: Male, 80 years old. PAIN TECHNIQUE: Two views of the pelvis were obtained. COMPARISON: None. FINDINGS: There is a non-specific bowel gas pattern. Normal visualized soft tissue structures. There is narrowing with cortical sclerosis and osteophyte formation of the sacroiliac joint consistent with degenerative osteoarthritic changes. Normal visualized bilateral superior and inferior pubic rami. Normal pubic symphysis. Normal ischial tuberosities. Normal visualized right femoral head. Normal right acetabulum. There is mild articular joint space narrowing of the right hip. There is an acute avulsion fracture of the left femoral greater trochanter. The fracture fragment is displaced anteriorly and medially by 1 cm. Age consistent left hip arthrosis without other fracture RAD/Pelvis 1 or 2 Views IMPRESSION: Avulsion fracture of the left greater trochanter with soft tissue swelling Age consistent hip and SI joint arthrosis No other demonstrated fracture Electronically Signed: Juan Murry MD at 18:00 EST , Service support ,
--- NOTE | 2021-05-11 17:17 | RAD_ITS ---
STUDY: X-RAY - PELVIS AND LEFT HIP REASON FOR EXAM: Male, 80 years old. PAIN TECHNIQUE: 2 views of the pelvis and hip. COMPARISON: None. FINDINGS: Bones are demineralized. There is an acute avulsion fracture of the greater trochanter. Fracture fragment is displaced anteriorly and medially by 1 cm. No other demonstrated femoral or pelvic fracture. Age consistent left hip and SI joint arthrosis. RAD/Hip Min 2 Views (Portable) IMPRESSION: Acute avulsion fracture of the greater trochanter with soft tissue swelling Electronically Signed: Juan Murry MD at 17:59 EST , Service support ,
== END ==
PROVIDERS: PCP Family Medicine; Referring Provider Family Medicine; Visit Provider Family Medicine
DX: M25.552 Pain in left hip (principal)
CPT/HCPCS: 72170; 73502

== ENCOUNTER 2021-05-11 17:56 | Emergency (ER) | payer MEDICARE, OTHER, SELFPAY ==
[2021-05-11 17:58] VITALS: BP 152/71; PULSE 65; RESP 16; TEMP 36.3; O2SAT 100; BMI 25.1
--- NOTE | 2021-05-11 18:18 | ED.VIS.LOWEX ---
HPI History of Present Illness HPI Narrative: Patient with past medical history of hypertension, on Eliquis for A. fib/flutter presents with left hip pain and reported left hip fracture. He relates history that almost 6 weeks ago he had a fall onto his left side. He has been able to ambulate. However last evening, he robin his left hip, and has had pain since then. He has been using a back brace and placing it lower on his pelvis which helps him ambulate and relieve some of the pain. He saw his primary care physician, Dr. Rosa Maria Santacruz, who sent him for outpatient x-rays. It was reported that he had a left hip fracture and that he needed to come to the emergency department for admission and orthopedic consultation. He denies other injuries. He has not hit his head. He had no loss of consciousness from his fall or jarring of his hip last night. Chief Complaint: Lower Extremity Injury [facility] Medical History Alcohol use Ambulates with cane Atherosclerotic heart disease of [place] coronary artery without angina pectoris Atrial fibrillation Atrial fibrillation and flutter Cardiology follow-up encounter Carotid artery stenosis Dietary restriction Emphysema of lung Essential hypertension Former smoker Hematemesis/vomiting blood High cholesterol History of atrial fibrillation History of cardioversion (~05/09/20) History of coronary artery disease History of echocardiogram History of GI bleed History of stress test History of transesophageal echocardiography (ROSI) Hx of ulcerative colitis Hypercholesterolemia Hyperlipidemia Hypertension 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 Premature atrial contractions Right carotid bruit Shortness of breath on exertion Subclavian artery stenosis, left (~10/15/19) Thrombocytopenia Thrombocytopenia Thyroid disease Ulcerative colitis Ulcerative colitis Upper GI bleed Upper GI bleed Walker as ambulation aid Wears glasses Wears hearing aid Home Medications ferrous sulfate 325 mg PO DAILY 05/28/15 [History Last Taken 05/09/20] zinc gluconate 50 mg PO DAILY 05/28/15 [History Last Taken 05/09/20] vitamin B complex 1 each PO DAILY 02/07/16 [History Last Taken 05/09/20] aspirin 81 mg PO DAILY@0800 08/29/16 [History Last Taken 04/23/21] levothyroxine 50 mcg tablet 50 mcg PO DAILY 06/13/20 [History Last Taken Unknown] Eliquis 2.5 mg PO BID 05/06/21 [History Last Taken 04/23/21] metoprolol tartrate 25 mg tablet 25 mg PO BID #180 tab 01/19/21 [Rx Last Taken Unknown] amiodarone 200 mg tablet 200 mg PO DAILY #90 tab 04/18/21 [Rx Last Taken Unknown] Allergy/AdvReac Type Severity Reaction Status Date / Time hydrochlorothiazide Allergy Severe Rash Verified 05/11/21 17:58 furosemide [From Lasix] Allergy Severe Verified 05/11/21 17:58 Rash Itchy lovastatin [From Mevacor] Allergy Rash Verified 05/11/21 17:58 amlodipine AdvReac Swelling Verified 05/11/21 17:58 Family History Father CAD (coronary artery disease) Mother Cancer breast Surgical History Aortocoronary bypass status (~02/12/17) History of cardiac catheterization History of hand surgery History of vasectomy Hx of CABG Hx of esophagogastroduodenoscopy Hx of heart bypass surgery Status post insertion of drug-eluting stent into right coronary artery for coronary artery disease (~04/2009) Social History adopted: No household members: spouse housing: house number of children: 2 current occupational status: retired Smoking Status: Former smoker Tobacco: How many years used: 50 (stopped about 10 yrs ago) how long ago did patient quit smokin years ago alcohol intake: current alcohol intake frequency: 3 or more drinks per day Alcohol type: beer, wine and hard liquor substance use type: does not use caffeine: Yes Type: coffee Number of servings: 2 ROS ROS ED ROS Narrative Constitutional: No fever, no chills. HEENT: No sore throat. No neck pain. No loss of vision. No rhinorrhea. Cardiovascular: No chest pain. No palpitations. No pedal edema. Respiratory: No cough, no shortness of breath. Abdominal: No abdominal pain. No nausea. No vomiting. Genitourinary: No dysuria. No hematuria. Musculoskeletal: No myalgias. Left hip pain. Neurologic: No headaches. No dizziness. No lightheadedness. Skin: No rash. No change in color. Psychiatric: No depression. No anxiety. EXAM Physical Exam Narrative Exam Narrative: Afebrile. Vital signs noted. HEENT: Normocephalic. Atraumatic. PERRL, EOMI. Neck soft and supple. No point tenderness or step off. Cardiovascular: Regular rate and rhythm. No murmurs, rubs, or gallops appreciated. Respiratory: No tachypnea. Lungs clear to auscultation bilaterally. Gastrointestinal: Abdomen soft, nontender, with normoactive bowel sounds. No rebound or guarding. Neurological: Awake. Alert. Nonfocal, nonlateralizing. Skin: No rash. Normal color. No pallor. Musculoskeletal: No pedal edema. Full range of motion extremities. Pelvis stable. No pain with logrolling of left hip. Able to flex and extend at hip and left knee. Palpable dorsalis pedis pulse. Const Vital Signs: 05/11/21 17:58 Temperature 97.3 F L Temperature Source Temporal Pulse Rate 65 Respiratory Rate 16 Blood Pressure 152/71 H Blood Pressure Mean 98 Pulse Ox 100 MDM MDM MDM Narrative Medical decision making narrative: I did enter preoperative laboratories with EKG. However, I reviewed the x-rays that were taken today, almost an hour to an hour and a half ago. There is an avulsion fracture of the left greater trochanter that is displaced by 1 cm anteriorly and medially, but otherwise unremarkable. I will discuss patient with orthopedics. In discussion with Dr. Young, this is nonoperative, and weightbearing as tolerated. I discussed the patient with Dr. Rosa Maria Santacruz who agrees that the patient does not require admission as it is nonsurgical. Patient is to continue weightbearing as tolerated. He has a cane and states he has a Rollator at home. He will continue his [id number] analgesics and follow-up as needed. Return instructions to the emergency department were reviewed. Disposition is discharged home in stable condition. Discharge Plan Triage Chief Complaint: Lower Extremity Injury ED Provider: Hans Armendariz Dx/Rx/DC Orders Prescriptions: No Action metoprolol tartrate 25 mg tablet 25 mg PO BID Qty: 180 RF: 4 ferrous sulfate 325 MG tablet 325 mg PO DAILY RF: 0 zinc gluconate 50 MG tablet 50 mg PO DAILY RF: 0 vitamin B complex 1 EACH capsule 1 each PO DAILY RF: 0 aspirin 81 MG tablet 81 mg PO DAILY@0800 RF: 0 Eliquis 2.5 mg tablet 2.5 mg PO BID RF: 0 levothyroxine 50 mcg tablet 50 mcg PO DAILY RF: 0 amiodarone 200 mg tablet 200 mg PO DAILY Qty: 90 RF: 3 Primary Care Provider: Rosa Maria Santacruz
--- NOTE | 2021-05-11 18:19 | ED.RN ---
VERBALIZED HOLDING ORDERS UNIT ORTHOPEDICS CALLS BACK
== END 2021-05-11 19:08 | disposition home or self-care (01) ==
PROVIDERS: Emergency Provider Emergency Medicine; PCP Family Medicine
DX: M25.552 Pain in left hip (principal); I25.10 Atherosclerotic heart disease of native coronary artery without angina pectoris; Z87.891 Personal history of nicotine dependence
CPT/HCPCS: 72170; 73502; 99282

== ENCOUNTER 2021-07-26 05:54 | Day surgery (SDC) | payer MEDICARE, OTHER, SELFPAY ==
[2021-07-26] VITALS (7 sets, daily range): BP systolic 153–215; BP diastolic 47–68; PULSE 45–60; RESP 16; TEMP 36.1–36.8; O2SAT 95–100; BMI 25.6
[2021-07-26] MEDS: Lactated Ringers 1,000 ML 15 ML IV ×2 (06:42→08:30)
[2021-07-26 07:05] LABS: Thyroid Stim Hormone (TSH) 1.35 uIU/mL (0.358-3.74)
--- NOTE | 2021-07-26 07:08 | HP.PCM_ITS ---
History and Physical Date of Admission: 07/26/21 Intake Vital Signs 04/19/21 13:53 Height 5 ft 11 in Weight: 178 lb BMI 24.8 BP 175/75 H Blood Pressure Location Rt brachial Position Sitting Respiration 18 Pulse 71 Pulse Source Monitor Temp 97.3 F L Temp Source Temporal Pulse Oximetry (%) 98 Oxygen Delivery Method room air Intake Visit Reasons: Discuss Hernia Surgery Chief Complaint: Discuss hernia surgery Is patient in pain?: No Allergies hydrochlorothiazide Allergy (Severe, Verified 04/19/21 13:57) Rash furosemide [From Lasix] Allergy (Verified 04/19/21 13:57) Severe Rash Itchy lovastatin [From Mevacor] Allergy (Verified 04/19/21 13:57) Rash amlodipine Adverse Reaction (Verified 04/19/21 13:57) Swelling Medications ferrous sulfate 325 mg PO DAILY 05/28/15 [History Confirmed 04/19/21] zinc gluconate 50 mg PO DAILY 05/28/15 [History Confirmed 04/19/21] vitamin B complex 1 each PO DAILY 02/07/16 [History Confirmed 04/19/21] aspirin 81 mg PO DAILY@0800 08/29/16 [History Confirmed 04/19/21] pantoprazole 40 mg PO DAILY 08/29/16 [History Confirmed 04/19/21] levothyroxine 50 mcg tablet 50 mcg PO DAILY 06/13/20 [History Confirmed 04/19/21] Eliquis 2.5 mg PO BID 11/02/20 [History Confirmed 04/19/21] Lactobacillus acidophilus 100 mg PO BID 11/02/20 [History Confirmed 04/19/21] atorvastatin 40 mg PO DAILY 11/02/20 [History Confirmed 04/19/21] balsalazide 750 mg capsule 2,250 mg PO BID cap 01/19/21 [History Confirmed 04/19/21] metoprolol tartrate 25 mg tablet 25 mg PO BID #180 tab 01/19/21 [Rx Confirmed 04/19/21] amiodarone 200 mg tablet 200 mg PO DAILY #90 tab 04/18/21 [Rx Confirmed 04/19/21] [facility] Medical History Atherosclerotic heart disease of [place] coronary artery without angina pectoris Atrial fibrillation Atrial fibrillation and flutter Carotid artery stenosis Essential hypertension Former smoker Hematemesis/vomiting blood History of cardioversion (~05/09/20) History of coronary artery disease Hypercholesterolemia Hyperlipidemia 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 Premature atrial contractions Right carotid bruit Subclavian artery stenosis, left (~10/15/19) Thrombocytopenia Thrombocytopenia Ulcerative colitis Ulcerative colitis Upper GI bleed Upper GI bleed Surgical History Aortocoronary bypass status (~02/12/17) History of hand surgery History of vasectomy Hx of CABG Status post insertion of drug-eluting stent into right coronary artery for coronary artery disease (~04/2009) Family History Father CAD (coronary artery disease) Mother Cancer breast Social History adopted: No household members: spouse housing: house number of children: 2 current occupational status: retired Smoking Status: Former smoker Tobacco: How many years used: 50 (stopped about 10 yrs ago) how long ago did patient quit smokin years ago alcohol intake: current alcohol intake frequency: 3 or more drinks per day Alcohol type: beer, wine and hard liquor substance use type: does not use caffeine: Yes Type: coffee Number of servings: 2 HPI HPI HPI: EULOGIO NOGUERA, is a 80 M who presents to the office today for right groin swelling. Patient reports for years he has had right swelling of the groin and umbilicus. He says is getting larger and worse as the years go by. No nausea or vomiting or fevers or chills. ROS General General: Yes fatigue; No weight change, appetite, colon cancer, breast cancer or weakness HEENT HEENT: Yes eye surgery; No difficulty swallowing, eye injury, swollen glands or hoarseness Endo Endocrine: No thyroid disease, diabetes mellitus, thyroid cancer, Hair loss, heat intolerance or cold intolerance Skin Skin: No rash or changing moles Breast Breast: No left breast lump, right breast lump, nipple discharge, breast pain, abnormal mammogram, abnormal US or breast enlargement Musc Musculoskeletal: No back problems, arthritis, rheumatoid arthritis, gout or joint pain Cardio Cardiovascular: Yes heart disease, atrial fibrillation, high blood pressure and heart stent; No murmur, pacemaker, heart attack, palpitations, shortness of breat with exertion or chest pain Psych Psychiatric: No depression, anxiety or hearing voices Resp Respiratory: Yes shortness of breath, No sleep apnea, No cough, No COPD, No asthma, No emphysema and No wheezing Gastro Gastrointestinal: No abdominal pain, No nausea or vomiting, No diarrhea, No constipation, No blood in stool, No acid reflux, No hemorrhoids, No ulcers, No gallbladder problem and No black,tarry stools Tye Hematologic: Yes blood thinners, No blood disorders, Yes bleeding, No anemia and No blood clots Neuro Neurologic: No system reviewed and no additional complaints, except as documented, No as per HPI, No abnormal gait, No abnormal hearing, No abnormal movements, No abnormal speech, No behavioral changes, No burning sensations, No confusion, No convulsions, No disequilibrium, No dizziness, No localized weakness, No frequent falls, No headache(s), No lack of coordination, No loss of vision, No memory loss, No numbness, No other visual disturbances, No radicular pain, No restless legs, No sensory deficit, No syncope, No tingling, No tremor(s), No weakness and No other Exam Const General: cooperative Orientation: alert and oriented x3 HENMT Head: normal to inspection Neck Neck: normal visual inspection and full ROM Chest Chest palpation & inspection: normal inspection of the chest Resp Effort & Inspection: normal respiratory effort Auscultation: clear to auscultation bilaterally Cardio Rate: regular rate Rhythm: regular rhythm GI Inspection: non-distended Palpation: soft, hernia indirect inguinal on the right and umbilical and nontender Skin General: no rashes or lesions noted Neuro General: patient alert and patient oriented x3 Extrem General: full ROM Psych Appearance: grossly normal Mental Status: mental status grossly normal Assessment and Plan Assessment and Plan (1) Right inguinal hernia: Status: Acute (2) Umbilical hernia: Status: Acute Qualifiers: Obstruction and gangrene presence: without obstruction or gangrene Qualified Code(s): K42.9 - Umbilical hernia without obstruction or gangrene Plan - Dr. Forrest Umaña MD: Patient has a large right inguinal hernia which is reducible. He also has a small umbilical hernia. I discussed open versus laparoscopic hernia repair with him. I also discussed umbilical hernia repair with him. Patient opts for robotic assisted laparoscopic right inguinal hernia repair with mesh and I will also repair the umbilical hernia without mesh as it is very small. I discussed the procedure in detail as well as the risks of bleeding, infection, injury to underlying bowel or spermatic cord, chronic groin pain or nerve injury, heart attack or . Patient understands the risks and is willing proceed. Patient was asked to stop his Eliquis for 2 days as well as his aspirin. Forrest Umaña MD Pager: [facility] [address] [place] [address] [address] [place] [address] Office: I have re-examined the patient. There are no clinical changes since date of exam.
[2021-07-26] MEDS: Cefazolin 2 GM in 0.9% Normal Saline 100 ML IV (07:25)
[2021-07-26] MEDS: Bupivacaine Mpf 0.5% 30 ML VIAL (07:43)
--- NOTE | 2021-07-26 09:04 | PCM.OPRPT ---
Problems Associated Problem List Diagnoses (1) Right inguinal hernia: (2) Umbilical hernia: Report of Operation Date of Procedure: 07/26/21 Pre-Operative Diagnosis: 1. Right inguinal hernia 2. Umbilical hernia Post-Operative Diagnosis: Same Surgery/Procedure Performed:: 1. Robotic assisted laparoscopic right inguinal hernia repair with mesh 2. Robotic assisted laparoscopic umbilical hernia repair Description of Procedure: Patient was brought to the operating room and general anesthesia was induced. The abdomen was prepped and draped in usual sterile fashion. An incision was made superior to the umbilicus deep to the fascia was was elevated and Veress needle was placed into the abdomen. Drop test was normal. The Veress needle was then used to insufflate the abdomen to 15 mmHg and it was removed. Camera ports placed through this incision. Camera was then placed into the port and the abdomen was inspected and there were no injuries. Patient had adhesions to an umbilical hernia as well as a large right inguinal hernia containing bowel. Under direct visualization a right lateral port and left lateral port were placed and the robot was docked and the patient was placed in Trendelenburg position. Using electrocautery scissors the adhesions and hernia sac to the umbilical hernia were taken down and the hernia was closed with a running #1 strata fix suture. This completely closed the hernia. Next the right inguinal hernia was addressed. The peritoneum was scored using electrocautery scissors and dissection was carried inferiorly until the hernia sac and its contents were reduced into the abdomen. A large piece of progrip mesh was unfolded and placed into the right inguinal region. This completely covered the hernia. The peritoneum was then reapproximated over the mesh completely covering the mesh. This was done with a running 3 OV lock suture. At the end of the procedure the mesh was completely covered with peritoneum. Next the robot was undocked and the abdomen was allowed to desufflate. The ports were removed and the incisions were injected with local anesthetic and closed with interrupted 4-0 Monocryl suture as well as Steri-Strips and bandages. The scrotum was checked at the end the case and contain both testicles. patient was brought to the PACU in stable condition tolerated the procedure well. Grafts/Implants Used: ProGrip mesh in the right inguinal region Admit VTE Documentation VTE Mechan Device Prophylaxis: SCD's
--- NOTE | 2021-07-26 09:18 | DCINST_ITS ---
Discharge Instructions Procedure Hernia Diet Discharge Diet: Light diet - advance as tolerated Activity Discharge Activity: May Not Drive (for 2-3 days or while taking narcotic pain meds.) and May Shower (with the bandage in place 1-2 days after surgery.) Lifting Restrictions: 20 pounds for 6 weeks. Additional Activity Instructions:: Climbing stairs is fine, walking is encouraged. Sitting in bed may be uncomfortable. Sitting up using your lateral muscles (sitting up sideways) is usually more comfortable. Do not drive, work heavy equipment of sign legal documents for 24 hours. If your hernia repair was an inguinal repair, you may have scrotal swelling, an ice pack and/or athletic support can provide more comfort. Pain medications may cause nausea, you should typically eat light foods as you take your pain medications. Pain medications may also cause constipation. If you have difficulty with this, discuss with your doctor. Ibuprofen and Tylenol for pain Resume is Friday Dressing / Incision Call your doctor if your incision/area has: Continuous Slow Oozing, Sudden Increased Bleeding, Increased Pain/ Swelling, Increased Redness and Foul Smelling Discharge Call your doctor if you observe: Fever of 101 or Higher Suture Line Care: Avoid Pulling/Pushing and Avoid Pinching/Bending Remove Dressing in: 2 days Additional Dressing/Incision Instructions:: Remove bandages in 2 days and Steri- Strips in 7 to 10 days Follow Up Care Please Follow Up With: Forrest Umaña MD When: Please call to schedule 2 week follow up appointment. [phone] Test Results: Test results from this visit will be discussed in further detail at your follow-up appointment, if applicable. Discharge Plan Admission Attending Provider: Forrest Umaña Primary Care Provider: Rosa Maria Santacruz Discharge Orders/Prescriptions Prescriptions: No Action metoprolol tartrate 50 mg tablet 50 mg PO BID RF: 0 lisinopril 20 mg tablet 20 mg PO BID RF: 0 hydralazine 25 mg tablet 25 mg PO TID 30 Days Qty: 90 RF: 6 balsalazide [Colazal] 750 mg capsule 2,250 mg PO BID RF: 0 ferrous sulfate 325 MG tablet 325 mg PO DAILY RF: 0 zinc gluconate 50 MG tablet 50 mg PO DAILY RF: 0 vitamin B complex 1 EACH capsule 1 each PO DAILY RF: 0 aspirin 81 MG tablet 81 mg PO DAILY@0800 RF: 0 levothyroxine 50 mcg tablet 50 mcg PO DAILY RF: 0 amiodarone 200 mg tablet 200 mg PO DAILY Qty: 90 RF: 3 atorvastatin [Lipitor] 40 mg tablet 40 mg PO DAILY Qty: 90 RF: 3 Referrals / Follow Up: Rosa Maria Santacruz MD [Primary Care Provider] - Disposition Disposition (needs filled in before D/C Order can be placed): Home, Self Care
[2021-07-26] MEDS: Ibuprofen 600 MG Tablet PO (10:23)
== END 2021-07-26 23:59 | disposition home or self-care (01) ==
LOC: SDC 05:55 → AC 05:58
PROVIDERS: Anesthesiology; PCP Family Medicine; Referring Provider Surgery; Visit Provider Surgery
PROC: (CPT 49650; principal; 2021-07-26 07:10)
DX: K40.90 Unilateral inguinal hernia, without obstruction or gangrene, not specified as recurrent (principal); J43.9 Emphysema, unspecified; I48.20 Chronic atrial fibrillation, unspecified; I48.92 Unspecified atrial flutter; K42.9 Umbilical hernia without obstruction or gangrene; E78.00 Pure hypercholesterolemia, unspecified; I10 Essential (primary) hypertension; I25.10 Atherosclerotic heart disease of native coronary artery without angina pectoris; I49.1 Atrial premature depolarization; E78.5 Hyperlipidemia, unspecified; E03.9 Hypothyroidism, unspecified; F10.10 Alcohol abuse, uncomplicated; Z95.1 Presence of aortocoronary bypass graft; Z79.82 Long term (current) use of aspirin; Z79.01 Long term (current) use 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; Z79.899 Other long term (current) drug therapy; Z87.891 Personal history of nicotine dependence
CPT/HCPCS: 49650; 49652; S2900; 00840; 84443; J7120; J2405

== ENCOUNTER 2021-08-14 14:04 | Outpatient (CLI) | payer MEDICARE, OTHER, SELFPAY ==
--- NOTE | 2021-08-14 14:08 | RAD_ITS ---
STUDY: X-RAY CHEST REASON FOR EXAM: Male, 81 years old. Fever and cough TECHNIQUE: PA and lateral views of the chest. COMPARISON: 10/30/2020 FINDINGS: Stable blunting of the right costophrenic angle, likely postoperative. The lungs are clear and expanded. There is no demonstrated pleural abnormality. Sternal cerclage wires and vascular clips are present from a prior sternotomy and coronary artery bypass graft procedure (CABG). Normal mediastinum and aidan. Normal visualized pulmonary arteries. Normal visualized aortic arch and descending thoracic aorta. Normal visualized thoracic spine. Normal visualized ribs, clavicles, and shoulders. There is no demonstrated abnormality of the visualized soft tissue structures of the upper abdomen. RAD/Chest PA and Lateral IMPRESSION: No acute pulmonary process, no interval change Electronically Signed: Juan Murry MD at 17:28 EST ,
== END 2021-08-14 23:59 | disposition home or self-care (01) ==
LOC: MTRAD 14:07
PROVIDERS: PCP Family Medicine; Referring Provider Family Medicine; Visit Provider Family Medicine
DX: J86.0 Pyothorax with fistula (principal)
CPT/HCPCS: 71046

== ENCOUNTER 2021-08-21 09:27 | Outpatient (CLI) | payer MEDICARE, OTHER, SELFPAY ==
[2021-08-21 13:05] LABS: AST(SGOT) 28 U/L (15-37); Alanine Aminotransfer ALT/SGPT 18 U/L (16-61); Albumin, Serum 3.6 g/dL (3.2-5.0); Alkaline Phosphatase 126 U/L (45-117); Bilirubin, Direct 0.21 mg/dL (0.00-0.30); Cholesterol 168 mg/dL (200); Globulin 3.2 g/dL (2.2-4.2); High Density Lipoprotein 95 mg/dL; Protein, Total 6.8 g/dL (6.4-8.2); Triglycerides 70 mg/dL; Very Low Density Lipoprotein 14 mg/dL (5-40)
== END 2021-08-21 23:59 | disposition home or self-care (01) ==
LOC: MTLAB 09:29
PROVIDERS: PCP Family Medicine; Referring Provider Nurse Practitioner Family; Visit Provider Nurse Practitioner Family
DX: E78.00 Pure hypercholesterolemia, unspecified (principal); E78.5 Hyperlipidemia, unspecified
CPT/HCPCS: 36415; 80061; 80076

== ENCOUNTER → 2022-04-16 | Outpatient (CLI) | payer MEDICARE, OTHER, SELFPAY ==
--- NOTE | 2022-04-16 07:48 | RDU_ITS ---
Reason For Study: Mesenteric Artery Stenosis Aorta Doppler Measurements Aorta Measurements Prox Aorta 133.7 cm/sec. Mid Aorta 144.7 cm/sec. Distal Aorta 105.2 cm/sec. SMA Origin 509.4 cm/sec. SMA Prox 441.8 cm/sec. SMA Mid 204.6 cm/sec. SMA Distal 243.0 cm/sec. Celiac artery 136.9 cm/sec. Hepatic artery 258.6 cm/sec. Splenic artery 189.9 cm/sec. LELAND Origin 610.6 cm/sec LELAND Prox 123.7 cm/sec. LELAND Mid 70.0 cm/sec. LELAND Distal 81.0 cm/sec. Procedure Aorta IVC Iliac vasculature or bypass grafts [id number]. The exam was diagnostic. Exam performed in department. VL/Renal Artery Duplex Ultrasound Interpretation Summary SMA >60% stenosis. .LELAND > 60% stenosis. Celiac appears <60%. Ordering Physician: Singh Khanna Referring Physician: Singh Khanna Performed By: Fredy Richards RVT
--- NOTE | 2022-04-16 07:49 | ADUUE_ITS ---
Reason For Study: Subclavian Artery Stenosis LEFT LEFT Heterogenous plaque noted throughout subclavian and axillary arteries. Subclavian artery prox, 144.9 cm/sec. Subclavian artery mid, 113.7 cm/sec. Subclavian artery distal, 201.6 cm/sec. Left Axillary velocity = 77.3 cm/sec. Left Brachial velocity = 94.7 cm/sec. Left Radial velocity = 89.2 cm/sec. Left Ulnar velocity = 90.9 cm/sec. /US Art Duplex Unilat UP Extrem Interpretation Summary Left arm triphasic flow and no stenosis. Ordering Physician: Singh Khanna Referring Physician: Rosa Maria Santacruz M.D. Performed By: Fredy Richards RVT
--- NOTE | 2022-04-16 07:50 | ART_ITS ---
Reason For Study: Stenosis Procedure A bilateral upper extremity continuous wave Doppler with analog waveform analysis and segmental pressures. Elevated BP noted bi-lateral. Spoke with Dr. Borges. Instructed patient to return home and take medication. OK to release patient. Left Segmental Pressures Left brachial= 221mmHg. Left forearm by way of the radial artery = 219mmHg. Left radial= 235mmHg. Left ulnar= 249mmHg. Left digit = 172 mmHg. Right Segmental Pressures Right brachial= 221mmHg. Right forearm pressure by way of the radial artery = 219mmHg. Right radial= 235mmHg. Right ulnar= 249mmHg. Right digit = 193 mmHg. Indices The right wrist-brachial index is 1.08. The right digital-brachial index is 0.86. The left wrist- brachial index is 1.11. The left digital-brachial index is 0.76. VL/Ankle Brachial Index Interpretation Summary Bilateral arm normal at rest with WBI 1.08 and 1.11. Ordering Physician: Dk Amaya Referring Physician: DK AMAYA DR. Performed By: LENNY OGDEN T
--- NOTE | 2022-04-16 07:50 | CDU_ITS ---
Reason For Study: Carotid Stenosis Rt. Velocities/BP Lt. Velocities/BP Prox CCA 68.5/4.9 cm/sec. Prox CCA 79.3/8.1 cm/sec. Mid CCA 64.1/10.1 cm/sec. Mid CCA 69.5/6.9 cm/sec. Dist CCA 59.8/11.9 cm/sec. Dist CCA 60.9/8.1 cm/sec. Prox ICA 185.5/27.6 cm/sec. Prox ICA 167.4/24.9 cm/sec. Mid ICA 112.5/19.4 cm/sec. Mid ICA 97.4/14.5 cm/sec. Dist ICA 81.8/12.2 cm/sec. Dist ICA 86.7/17.9 cm/sec. Rt. ICA/CCA = 2.89. Lt. ICA/CCA = 2.41. Prox ECA 97.5/7.4 cm/sec. Prox ECA 411.5/16.7 cm/sec. Rt. Vert. 25.0/3.3 cm/sec. Lt. Vert. 35.1/8.1 cm/sec. Right Extracranial There is heterogeneous, irregular atherosclerotic plaque noted in the right common carotid artery. There is heterogeneous, irregular atherosclerotic plaque noted in the right internal carotid artery. There is heterogeneous, irregular atherosclerotic plaque noted in the right external carotid artery. Antegrade flow is noted in the right vertebral artery. Left Extracranial There is heterogeneous, irregular atherosclerotic plaque noted in the left common carotid artery. There is heterogeneous, irregular atherosclerotic plaque noted in the left internal carotid artery. There is heterogeneous, irregular atherosclerotic plaque noted in the left external carotid artery. Antegrade flow is noted in the left vertebral artery. Procedure Carotid Duplex 49544. This is a Carotid Duplex examination using B-mode, color flow and specral Doppler. The exam was diagnostic. Technically difficult study due to calcified shadowing throughout vessels. Exam performed in department. VL/Carotid Duplex Ultrasound Interpretation Summary Moderate (50-69%) stenosis right extracranial internal carotid. Moderate (50-69 %) stenosis left extracranial internal carotid. Flow within the vertebral arteries is antegrade bilaterally. Ordering Physician: Singh Khanna Referring Physician: Rosa Maria Santacruz M.D. Performed By: Fredy Richards RVT
== END | disposition home or self-care (01) ==
PROVIDERS: PCP Family Medicine; Referring Provider Surgery Vascular Surgery; Visit Provider Surgery Vascular Surgery
DX: I77.1 Stricture of artery (principal); K55.1 Chronic vascular disorders of intestine; I65.23 Occlusion and stenosis of bilateral carotid arteries
CPT/HCPCS: 93880; 93922; 93931; 93975

== ENCOUNTER 2022-05-20 15:20 | Emergency (ER) | payer MEDICARE, OTHER, SELFPAY ==
[2022-05-20 15:23] VITALS: BP 232/74; PULSE 51; RESP 15; TEMP 36.2; O2SAT 98; BMI 25.1
--- NOTE | 2022-05-20 15:39 | EKG12_ITS ---
Test Reason : HYPERTENSION Blood Pressure : / mmHG Vent. Rate : 049 BPM Atrial Rate : 049 BPM P-R Int : 210 ms QRS Dur : 126 ms QT Int : 512 ms P-R-T Axes : 025 -45 067 degrees QTc Int : 462 ms Sinus bradycardia with 1st degree A-V block Left axis deviation Non-specific intra-ventricular conduction block Minimal voltage criteria for LVH, may be normal variant ( Mills product ) Abnormal ECG Confirmed by RUBÉN WATSON, ALPESH ([id number]), continuity editor YOBANY COLLINS ([id number]) on 05/21/2022 8:38:22 AM Referred By: TL Confirmed By:ALPESH MONTANA MD
--- NOTE | 2022-05-20 15:40 | EDS_ITS ---
HPI History of Present Illness Chief Complaint: Hypertension Informant: patient Narrative Narrative: Sent in here from [facility] office Dr. Rodriguez for evaluation due to elevated blood pressure systolic 230s. Patient history of hypertension on hydralazine, metoprolol, lisinopril. Typical blood pressure systolic 160s over 60. Last checked at home was a week ago. He is in the office to have a tooth extraction due to a broken crown. Found to have blood pressure elevated sent here. He denies headache chest pains abdominal pain nausea or vomiting. He took his medications this morning he is due for his hydralazine currently. Reported there was blood from the left ear. He wears hearing aids bilaterally. Currently no left hearing aid. Denies any pain in the left ear. Denies any changes in medications. Appears amlodipine causes swelling and Lasix causes severe rash along with hydrochlorothiazide from his history. He states his blood pressure is managed by his district court reporter Dr. Borges. He does report CKD history. [facility] Medical History Alcohol use Ambulates with cane Atherosclerotic heart disease of [place] coronary artery without angina pectoris Atrial fibrillation Atrial fibrillation and flutter Cardiology follow-up encounter Carotid artery stenosis Dietary restriction Emphysema of lung Essential hypertension Former smoker Hematemesis/vomiting blood High cholesterol History of atrial fibrillation History of cardioversion (~05/09/20) History of coronary artery disease History of echocardiogram History of GI bleed History of right inguinal hernia History of stress test History of transesophageal echocardiography (ROSI) History of umbilical hernia Hx of ulcerative colitis Hypercholesterolemia Hyperlipidemia Hypertension Injury of head and neck [facility] (current) use 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 Premature atrial contractions Right carotid bruit Shortness of breath on exertion Subclavian artery stenosis, left (~10/15/19) Thrombocytopenia Thrombocytopenia Thyroid disease Ulcerative colitis Ulcerative colitis Upper GI bleed Upper GI bleed Walker as ambulation aid Wears glasses Wears hearing aid Home Medications ferrous sulfate 325 mg (65 mg iron) tablet 325 mg PO DAILY vitamin 05/28/15 [History Last Taken 05/09/20] zinc gluconate 50 mg tablet 50 mg PO DAILY supplement 05/28/15 [History Last Taken 05/09/20] vitamin B complex 1 each PO DAILY vitamin 02/07/16 [History Last Taken 05/09/20] aspirin 81 mg tablet,delayed release 81 mg PO DAILY@0800 [facility] 08/29/16 [History Last Taken 04/23/21] levothyroxine 50 mcg tablet 50 mcg PO DAILY thyroid 06/13/20 [History Last Taken Unknown] balsalazide 750 mg capsule (Colazal) 2,250 mg PO BID 05/16/21 [History Last Taken Unknown] amiodarone 200 mg tablet 200 mg PO DAILY Afib/Flutter #90 tabs 06/04/21 [Rx Last Taken Unknown] hydralazine 50 mg tablet 50 mg PO TID 90 days #270 tabs 12/03/21 [Rx Last Taken Unknown] metoprolol tartrate 25 mg tablet See Rx Instructions .Route .COMPLEX #180 TABLETS 01/14/22 [Rx Last Taken Unknown] lisinopril 20 mg tablet 20 mg PO BID #180 tabs 02/13/22 [Rx Last Taken Unknown] atorvastatin 40 mg tablet (Lipitor) 40 mg PO DAILY #90 tabs 03/13/22 [Rx Last Taken Unknown] chlorthalidone 25 mg tablet 25 mg PO DAILY #30 tabs 05/20/22 [Rx Last Taken Unknown] Allergy/AdvReac Type Severity Reaction Status Date / Time hydrochlorothiazide Allergy Severe Rash Verified 05/20/22 16:02 furosemide [From Lasix] Allergy Severe Verified 05/20/22 16:02 Rash Itchy lovastatin [From Mevacor] Allergy Rash Verified 05/20/22 16:02 amlodipine AdvReac Swelling Verified 05/20/22 16:02 Family History Father CAD (coronary artery disease) Mother Cancer breast Surgical History Aortocoronary bypass status (~02/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) History of cardiac catheterization History of hand surgery History of right inguinal hernia repair History of umbilical hernia repair History of vasectomy Hx of CABG Hx of colonoscopy Hx of esophagogastroduodenoscopy Hx of heart bypass surgery S/P right inguinal hernia repair S/P umbilical hernia repair, follow-up exam Status post insertion of drug-eluting stent into right coronary artery for coronary artery disease (~04/2009) Social History adopted: No household members: spouse housing: house number of children: 2 current occupational status: retired Smoking Status: Former smoker Tobacco: How many years used: 50 (stopped about 10 yrs ago) how long ago did patient quit smokin years ago alcohol intake: current alcohol intake frequency: 3 or more drinks per day Alcohol type: beer, wine and hard liquor substance use type: does not use caffeine: Yes Type: coffee Number of servings: 2 ROS ROS ED Constitutional Constitutional ED: Denies chills, fever(s) or sweats Eyes Eyes: Denies change in vision ENT ENT ED: Denies dysphagia or sore throat Cardiovascular Cardiovascular: Denies chest pain, leg edema, palpitations or racing heartbeat Respiratory/Chest Respiratory/Chest: Denies cough, dyspnea or dyspnea on exertion Gastrointestinal Gastrointestinal: Denies abdominal pain, diarrhea, nausea or vomiting Genitourinary Genitourinary ED: Denies dysuria, hematuria or urinary frequency Musculoskeletal Musculoskeletal: Denies back pain, extremity pain or neck pain Integumentary Denies rash or wounds Neurologic Neurologic: Denies headache(s), paresthesias or weakness EXAM Physical Exam Const Vital Signs: 05/20/22 15:23 05/20/22 16:00 05/20/22 16:59 Temperature 97.1 F L Temperature Source Temporal Pulse Rate 51 L 53 L Respiratory Rate 15 12 Respiratory Effort Normal Non-Labored Respiratory Pattern Normal Blood Pressure 232/74 H 218/77 H Blood Pressure Mean 126 124 Pulse Ox 98 97 Oxygen Delivery Method Room Air Room Air 05/20/22 18:19 Temperature Temperature Source Pulse Rate 50 L Respiratory Rate 11 L Respiratory Effort Respiratory Pattern Blood Pressure 202/64 H Blood Pressure Mean 110 Pulse Ox 97 Oxygen Delivery Method Room Air Positive well nourished and well developed General Appearance ED: well developed and NAD HEENT Reports moist mucous membranes HEENT Narrative: Left ear: External canal noted cerumen distally there was dried blood around this along with dried blood on his auricular. Curette was used to remove some cerumen, able to visualize a tympanic membrane that was clear and intact. No area of active bleeding noted. Right ear: Hearing aid removed, cerumen on the distal external canal was able to visualize tympanic membrane superiorly which is noted to be intact and clear. No narrowing of canal. normocephalic and atraumatic Eyes PERRL, EOMs intact bilaterally and conjunctivae normal General Eye ED: Yes normal appearance of both eyes Neck no lymphadenopathy and supple General: Negative for tenderness Chest Wall Chest: Negative for tenderness Resp normal respiratory effort and normal air movement Effort and Inspection: symmetric chest movement; Negative for respiratory distress Cardio regular rhythm and no murmurs Rate: bradycardia Peripheral Pulses: pulses 2+ throughout GI normal to inspection, nondistended, normoactive bowel sounds and non-tender Palpation: Negative for guarding or rebound tenderness present Back/Spine no CVA tenderness and no thoracic nor lumbar tenderness Extremity normal to inspection General Extremety ED: Negative for edema or tenderness General Extremity: Negative for edema Neuro oriented x3 and no sensory deficits noted Sensorium / Orientation: awake and alert Skin no rashes or lesions noted and no wounds MDM MDM MDM Narrative Medical decision making narrative: EKG sinus bradycardia is on metoprolol. He denies lightheaded symptoms denies any symptoms with his hypertension that is elevated. I will check labs, will give his afternoon dose of hydralazine. Left ear noted cerumen, there is dried blood no clear active bleeding with TM intact. He is followed by ENT Dr. Christine as an outpatient. Will reevaluate after work-up. Review records from his cardiology office visits. May 2021 systolic blood pressure 210, he was started on 25 mg hydralazine 3 times daily at that time. In November 2021 blood pressure was systolic 220, hydralazine was increased to 50 mg 3 times daily. Patient given to show IV hydralazine 10 mg systolic left or down to 202. Labs stable chronic kidney disease creatinine lower than previous. Troponin chronically elevated for the past year in the doctor's office. Is asymptomatic. I discussed with district court reporter Dr. Nino., Discussed patient's history reviewed his medications along with allergies. He will be started on chlorthalidone 25 mg daily. Given a dose in the ED. He will follow-up closely with cardiology as an outpatient. He is also given follow-up with ENT for his earwax from hearing aids. All questions were answered. Return precautions. Lab Data Labs: Laboratory Results - last 24 hr 05/20/22 05/20/22 15:55 15:55 WBC 4.0 L RBC 3.14 L Hgb 11.6 L Hct 34.1 L MCV 108.6 H MCH 36.9 H MCHC 34.0 RDW Std Deviation 58.4 H RDW Coeff of Chanel 14.6 Plt Count 107 L MPV 10.8 Immature Gran % (Auto) 0.200 Neut % (Auto) 72.5 H Lymph % (Auto) 13.4 L Traill % (Auto) 10.9 H Eos % (Auto) 2.0 Baso % (Auto) 1.0 Absolute Neuts (auto) 2.9 Absolute Lymphs (auto) 0.54 L Nucleated RBC % 0 Differential Comment Sodium 141 Potassium 4.8 Chloride 110 H Carbon Dioxide 26.0 Anion Gap 5 BUN 34 H Creatinine 2.06 H Estim Creat Clear Calc 30.46 Est GFR (MDRD) Af Amer 40 L Est GFR (MDRD) Non-Af 33 L BUN/Creatinine Ratio 16.5 Glucose 103 Calcium 9.0 EKG Initial EKG: Attestation: I personally reviewed and interpreted this EKG as follows: Comments: Sinus rate of 49, no ST or T wave changes first-degree AV block, nonspecific intraventricular delay. QTc 462. Discharge Plan Triage Chief Complaint: Hypertension ED Provider: Destin Cazares Dx/Rx/DC Orders Clinical Impression: Hypertension, Coronary artery disease, CKD (chronic kidney disease), Bilateral impacted cerumen, Uses hearing aid Instructions: ED Chronic Kidney Disease (CKD), ED Hypertension, Established Prescriptions: New chlorthalidone 25 mg tablet 25 mg PO DAILY Qty: 30 0RF No Action hydralazine 50 mg tablet 50 mg PO TID 90 Days Qty: 270 3RF balsalazide [Colazal] 750 mg capsule 2,250 mg PO BID ferrous sulfate 325 MG tablet 325 mg PO DAILY Label Comments: Iron supplement zinc gluconate 50 MG tablet 50 mg PO DAILY Label Comments: supplement vitamin B complex 1 EACH capsule 1 each PO DAILY Label Comments: Vitamin supplement aspirin 81 MG tablet 81 mg PO DAILY@0800 Label Comments: will stop 5 days prior to surgery levothyroxine 50 mcg tablet 50 mcg PO DAILY amiodarone 200 mg tablet 200 mg PO DAILY Qty: 90 3RF metoprolol tartrate 25 mg tablet See Rx Instructions .ROUTE .COMPLEX Qty: 180 3RF Dose Instruction: TAKE 1 TABLET BY MOUTH TWICE DAILY Rx Instructions: TAKE 1 TABLET BY MOUTH TWICE DAILY lisinopril 20 mg tablet 20 mg PO BID Qty: 180 3RF atorvastatin [Lipitor] 40 mg tablet 40 mg PO DAILY Qty: 90 3RF Primary Care Provider: Rosa Maria Santacruz Referrals: Rosa Maria Santacruz MD [Primary Care Provider] - Zach Christine MD [Med Staff - Courtesy Staff] - 1-2 Weeks Brooks Borges MD [Med Staff - Active Staff] - 3-5 Days Activity Restrictions/Additional Instructions: Take new medication as prescribed in discussion with Dr. Nino. continue your other blood pressure medicines. Follow-up with Dr. Borges for medication adjustments. Follow-up with Dr. Christine for your earwax., Disposition Disposition: Home, Self Care
[2022-05-20] MEDS: hydrALAZINE 50 MG Tablet PO (16:01)
[2022-05-20 16:18] LABS: Absolute Lymphocyte Count 0.54 X10^3/uL (0.83-4.51); Absolute Neutrophil Count 2.9 X10^3/uL (2.0-7.7); Basophil# 0.04 X10^3/uL; Eosinophil# 0.08 X10^3/uL; Hematocrit 34.1 % (40-54); Hemoglobin 11.6 g/dL (13.0-16.5); Lymphocyte # 0.54 X10^3/ul (0.83-4.51); Lymphocyte % 13.4 % (19-41); Mean Corpuscular Hgb 36.9 pg (27.0-32.0); Mean Corpuscular Volume 108.6 fL (80-94); Mean Platelet Vol. 10.8 fl (6.2-12.0); Monocyte# 0.44 X10^3/uL; Monocyte% 10.9 % (0-10); NRBC Flagged by Analyzer 0 % (0-5); Neutrophil # 2.91 X10^3/uL (2.7-7.7); Neutrophil % 72.5 % (47-70); POSITIVE DIFFERENTIAL YES; Platelet Count 107 K/mm3 (150-450); RBC Distribution Width CV 14.6 % (11.6-14.6); RBC Distribution Width SD 58.4 fl (35.1-43.9); Red Blood Count 3.14 M/mm3 (4.6-6.2)
[2022-05-20 16:21] LABS: Anion Gap 5 (5-15); BUN 34 mg/dL (7-18); BUN/Creat Ratio 16.5 RATIO (10-20); Chloride 110 mmol/L (98-107); Creatinine, Serum 2.06 mg/dL (0.70-1.30); EST Glomerular Filtration Rate 33 mL/min (>60); Est Glom Filt Rate - Afr Amer 40 mL/min (>60); Estimated Creatinine Clearance 30.46 ml/min; Glucose 103 mg/dL (74-106); Potassium 4.8 mmol/L (3.5-5.1); Sodium Level 141 mmol/L (136-145)
[2022-05-20 16:51] LABS: Differential Indicated SCAN CRITERIA MET
[2022-05-20 16:59] VITALS: BP 218/77; PULSE 53; RESP 12; O2SAT 97
[2022-05-20] MEDS: hydrALAZINE 20 MG/ML Vial 10 MG IV (17:18)
[2022-05-20 18:19] VITALS: BP 202/64; PULSE 50; RESP 11; O2SAT 97
[2022-05-20] MEDS: Chlorthalidone 50 MG Tablet 25 MG PO (19:07)
[2022-05-20 19:39] VITALS: BP 222/72; PULSE 56; RESP 25; O2SAT 97
[2022-05-22 09:34] LABS: Pathologist Review Reviewed
== END 2022-05-20 19:55 | disposition home or self-care (01) ==
PROVIDERS: Emergency Provider Emergency Medicine; PCP Family Medicine; Visit Provider Emergency Medicine
DX: I12.9 Hypertensive chronic kidney disease with stage 1 through stage 4 chronic kidney disease, or unspecified chronic kidney disease (principal); I25.10 Atherosclerotic heart disease of native coronary artery without angina pectoris; N18.9 Chronic kidney disease, unspecified; H61.23 Impacted cerumen, bilateral; Z95.1 Presence of aortocoronary bypass graft; Z87.891 Personal history of nicotine dependence; Z97.4 Presence of external hearing-aid
CPT/HCPCS: 80048; 85025; 93005; 96374; 99285; A4216

== ENCOUNTER → 2022-08-23 | Outpatient (CLI) | payer MEDICARE, OTHER, SELFPAY ==
[2022-08-23 12:57] LABS: AST(SGOT) 22 U/L (15-37); Alanine Aminotransfer ALT/SGPT 16 U/L (16-61); Anion Gap 4 (5-15); BUN 47 mg/dL (7-18); BUN/Creat Ratio 19.3 RATIO (10-20); Calcium,Total 8.9 mg/dL (8.5-10.1); Chloride 113 mmol/L (98-107); Cholesterol 152 mg/dL (200); Creatinine, Serum 2.44 mg/dL (0.70-1.30); EST Glomerular Filtration Rate 27 mL/min (>60); Est Glom Filt Rate - Afr Amer 33 mL/min (>60); Glucose 101 mg/dL (74-106); High Density Lipoprotein 84 mg/dL; Potassium 4.7 mmol/L (3.5-5.1); Sodium Level 141 mmol/L (136-145); Triglycerides 63 mg/dL; Very Low Density Lipoprotein 13 mg/dL (5-40)
== END | disposition home or self-care (01) ==
LOC: MTLAB 10:59
PROVIDERS: PCP Family Medicine; Referring Provider Family Medicine; Visit Provider Family Medicine
DX: I10 Essential (primary) hypertension (principal); E78.00 Pure hypercholesterolemia, unspecified
CPT/HCPCS: 36415; 80048; 80061; 84450; 84460

== ENCOUNTER → 2022-10-17 | Outpatient (CLI) | payer MEDICARE, OTHER, SELFPAY | END | disposition home or self-care (01) | LOC: MTLAB 13:38 | PROVIDERS: PCP Family Medicine; Referring Provider Physician Assistant Medical; Visit Provider Physician Assistant Medical | DX: I48.91 Unspecified atrial fibrillation (principal); I48.92 Unspecified atrial flutter | CPT/HCPCS: 36415; 84443 ==

== ENCOUNTER 2022-11-29 01:34 | Inpatient (IN) | payer MEDICARE, OTHER, SELFPAY ==
[2022-11-29] VITALS (11 sets, daily range): BP systolic 98–138; BP diastolic 53–74; PULSE 59–69; RESP 15–18; TEMP 36.5–38.3; O2SAT 94–99; BMI 25.1; BMI 24.8
--- NOTE | 2022-11-29 01:50 | RAD_ITS ---
INDICATION: fever, weakness EXAMINATION/TECHNIQUE: X-RAY - XR Chest 1 View COMPARISON: 08/14/2021 FINDINGS: LINES/DEVICES: None. LUNGS: Right infrahilar opacity. No edema or effusion. No pneumothorax. MEDIASTINUM AND CARDIOVASCULAR STRUCTURES: Surgical changes in the mediastinum, atherosclerotic calcifications and cardiomediastinal contours, similar compared to the prior. BONES AND SOFT TISSUES: Unremarkable. RAD/Chest 1 View (Portable) IMPRESSION: Right infrahilar opacity, concerning for infection. Electronically Signed: Warren Haro MD at 2:53 EDT ,
--- NOTE | 2022-11-29 01:51 | EDS_ITS ---
HPI HPI - Fall History of Present Illness Chief Complaint: Fall Detail of Chief Complaint: Falls, weakness, fever Informant: patient Narrative Narrative: Patient presents to the emergency department via EMS from home. Patient apparently fell while going to the bathroom. Patient states that he went to sit on the toilet and missed and fell onto the floor. Patient unable to get up afterwards. Patient states that he had a fall 4 nights ago. Patient states that he had some chills while in bed 4 nights ago as well. He describes generalized weakness. He denies cough or vomiting or diarrhea. He denies urinary symptoms. Patient takes aspirin otherwise not anticoagulated. Patient denies striking his head during the fall. He denies injury. He did hurt his left lower extremity and sustained a small laceration to the anterior aspect of his left ankle 4 nights ago. [facility] Medical History Alcohol use Ambulates with cane Atherosclerotic heart disease of [place] coronary artery without angina pectoris Atrial fibrillation Atrial fibrillation and flutter Cardiology follow-up encounter Carotid artery stenosis Dietary restriction Emphysema of lung Essential hypertension Former smoker Hematemesis/vomiting blood High cholesterol History of atrial fibrillation History of cardioversion (~05/09/20) History of coronary artery disease History of echocardiogram History of GI bleed History of right inguinal hernia History of stress test History of transesophageal echocardiography (ROSI) History of umbilical hernia Hx of ulcerative colitis Hypercholesterolemia Hyperlipidemia Hypertension 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 Mitral valve insufficiency PAD (peripheral artery disease) Premature atrial contractions Right carotid bruit Shortness of breath on exertion Subclavian artery stenosis, left (~10/15/19) Thrombocytopenia Thrombocytopenia Thyroid disease Ulcerative colitis Ulcerative colitis Upper GI bleed Upper GI bleed Walker as ambulation aid Wears glasses Wears hearing aid Home Medications ferrous sulfate 325 mg (65 mg iron) tablet 325 mg PO DAILY vitamin 05/28/15 [History Last Taken 05/09/20] zinc gluconate 50 mg tablet 50 mg PO DAILY supplement 05/28/15 [History Last Taken 05/09/20] vitamin B complex 1 each PO DAILY vitamin 02/07/16 [History Last Taken 05/09/20] aspirin 81 mg tablet,delayed release 81 mg PO DAILY@0800 [facility] 08/29/16 [History Last Taken 04/23/21] levothyroxine 50 mcg tablet 75 mcg PO DAILY thyroid 06/13/20 [History Last Taken Unknown] balsalazide 750 mg capsule (Colazal) 2,250 mg PO BID 05/16/21 [History Last Taken Unknown] atorvastatin 40 mg tablet (Lipitor) 40 mg PO DAILY #90 tabs 03/13/22 [Rx Last Taken Unknown] chlorthalidone 25 mg tablet 25 mg PO DAILY #90 tabs 05/21/22 [Rx Last Taken Unknown] amiodarone 200 mg tablet 200 mg PO DAILY Afib/Flutter #90 tabs 05/27/22 [Rx Last Taken Unknown] amlodipine 10 mg tablet 10 mg PO DAILY #90 tabs 06/20/22 [Rx Last Taken Unknown] carvedilol 6.25 mg tablet (Coreg) 6.25 mg PO BID #180 tabs 10/17/22 [Rx Last Taken Unknown] lisinopril 20 mg tablet 20 mg PO BID #180 tabs 11/26/22 [Rx Last Taken Unknown] hydralazine 50 mg tablet 50 mg PO BID 11/29/22 [History Last Taken Unknown] Allergy/AdvReac Type Severity Reaction Status Date / Time hydrochlorothiazide Allergy Severe Rash Verified 11/29/22 01:38 furosemide [From Lasix] Allergy Severe Verified 11/29/22 01:38 Rash Itchy lovastatin [From Mevacor] Allergy Rash Verified 11/29/22 01:38 amlodipine AdvReac Swelling Verified 11/29/22 01:38 Family History Father CAD (coronary artery disease) Mother Cancer breast Surgical History Aortocoronary bypass status (~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) History of cardiac catheterization History of hand surgery History of right inguinal hernia repair History of umbilical hernia repair History of vasectomy Hx of CABG Hx of colonoscopy Hx of esophagogastroduodenoscopy Hx of heart bypass surgery S/P right inguinal hernia repair S/P umbilical hernia repair, follow-up exam Status post insertion of drug-eluting stent into right coronary artery for coronary artery disease (~04/2009) Social History adopted: No household members: spouse housing: house number of children: 2 current occupational status: retired Smoking Status: Former smoker Tobacco: How many years used: 50 (stopped about 10 yrs ago) how long ago did patient quit smokin years ago alcohol intake: current alcohol intake frequency: 3 or more drinks per day Alcohol type: beer, wine and hard liquor substance use type: does not use caffeine: Yes Type: coffee Number of servings: 2 ROS ROS ED Review of Systems ROS Unobtainable: other Constitutional Constitutional ED: Reports chills, fever(s) and lethargy; Denies sweats or yuridia ght loss Eyes Eyes: Denies blurry vision, change in vision or diplopia ENT ENT ED: Denies rhinorrhea or sore throat Cardiovascular Cardiovascular: Denies chest pain, orthopnea or racing heartbeat Respiratory/Chest Respiratory/Chest: Denies cough, dyspnea, dyspnea on exertion, orthopnea or sputum Gastrointestinal Gastrointestinal: Denies abdominal pain, diarrhea, nausea or vomiting Genitourinary Genitourinary ED: Denies dysuria, hematuria or urinary frequency Musculoskeletal Musculoskeletal: Denies arthralgias, back pain, myalgias or neck pain Integumentary Denies abscess, Abrasions or rash Neurologic Neurologic: Reports weakness; Denies headache(s) Psychiatric Psychiatric: Denies anxiety, depression or suicidal thoughts Endocrine Endocrinology: Denies polydipsia, polyphagia or polyuria Hematologic/Lymphatic Hematologic/Lymphatic: Denies easy bleeding, easy bruising or lymphadenopathy Allergic/Immunologic Allergic/Immunologic ED: Denies mouth swelling, tongue swelling or urticaria EXAM Physical Exam Const Vital Signs: 11/29/22 01:38 11/29/22 01:42 11/29/22 02:42 Temperature 101 F H 100.8 F H Temperature Source Oral Temporal Pulse Rate 69 67 Respiratory Rate 17 16 Respiratory Effort Normal Non-Labored Respiratory Depth Normal Respiratory Pattern Normal Blood Pressure 138/61 H 137/53 H Blood Pressure Mean 86 81 Pulse Ox 94 94 Oxygen Delivery Method Room Air Room Air Room Air 11/29/22 03:00 11/29/22 04:00 Temperature 100.8 F H Temperature Source Temporal Pulse Rate 67 59 L Respiratory Rate 15 16 Respiratory Effort Respiratory Depth Respiratory Pattern Blood Pressure 137/53 H 125/53 H Blood Pressure Mean 81 77 Pulse Ox 95 96 Oxygen Delivery Method Room Air Room Air Positive well nourished and well developed General Appearance ED: well developed and NAD HEENT Reports TM's clear and moist mucous membranes normocephalic and atraumatic; Negative for trauma or tenderness Tympanic Membrane ED: Yes TM's clear Eyes PERRL and EOMs intact bilaterally General Eye ED: Negative for pale conjunctiva or scleral icterus Neck no lymphadenopathy, supple and no JVD General: Negative for tenderness Chest Wall inspection of chest normal and palpation of chest normal Chest: Negative for tenderness Resp normal respiratory effort and clear to auscultation bilaterally Effort and Inspection: Negative for respiratory distress or pain with movement Auscultation: Negative for rhonchi, wheezes or diminished lung sounds Cardio regular rate, regular rhythm, S1 normal heart sound, S2 normal heart sound and no murmurs Peripheral Pulses: pulses 2+ throughout GI normal to inspection, nondistended, normoactive bowel sounds, soft to palpation, non-tender, non-distended and no masses Back/Spine no CVA tenderness and no thoracic nor lumbar tenderness Extremity Extremity Narrative: Patient has multiple bruises to the left lower extremity and small 4 cm laceration to the anterior aspect of the left lower leg that is healing. Do not appreciate any significant cellulitic changes or purulent drainage. Mild soft tissue swelling to the dorsum of the foot. Neurovascularly intact. General Extremety ED: Negative for edema General Extremity: Negative for edema Neuro oriented x3, CN's II-XII intact bilaterally, no sensory deficits noted and gait normal Sensorium / Orientation: awake, alert, oriented to person, oriented to place and oriented to time Motor Exam: strength 5/5 throughout and strength abnormal Psych mental status grossly normal Skin no rashes or lesions noted and no wounds MDM MDM MDM Narrative Medical decision making narrative: Patient presents with generalized weakness and fever. Differential includes infectious etiology versus cardiac etiology given his heart history. Patient had a CBC with differential obtained on arrival showed a white count 2.0 with a hemoglobin of 8.1 platelet count of 55. Chemistries unremarkable. BUN 43 creatinine 2.61. It lactate was normal. Urinalysis normal. Chest x-ray radiology felt may have infiltrate right middle lobe however patient without any signs or symptoms of pneumonia otherwise. He does have a small wound on his left lower extremity but clinically does not appear infected. Troponin was elevated at 134 but patient denying chest pain or shortness of breath. Case will be discussed with hospitalist to evaluate for admission. Etiology of fever uncertain. Lab Data Attestation: I reviewed the patient's lab results. Labs: Laboratory Results - last 24 hr 11/29/22 11/29/22 11/29/22 02:03 02:03 02:03 WBC 2.0 L RBC 2.31 L Hgb 8.1 L Hct 25.0 L MCV 108.2 H MCH 35.1 H MCHC 32.4 RDW Std Deviation 62.1 H RDW Coeff of Chanel 15.7 H Plt Count 55 L MPV 10.6 Immature Gran % (Auto) 0.000 Neut % (Auto) 82.6 H Lymph % (Auto) 10.4 L [place] % (Auto) 6.5 Eos % (Auto) 0.0 Baso % (Auto) 0.5 Absolute Neuts (auto) 1.7 L Absolute Lymphs (auto) 0.21 L Nucleated RBC % 0 Diff Path Review May foll Platelet Estimate MOD DEC Anisocytosis 1+ Macrocytosis 2+ Sodium 140 Potassium 4.9 Chloride 111 H Carbon Dioxide 22.0 Anion Gap 7 BUN 43 H Creatinine 2.67 H Estim Creat Clear Calc 23.11 Est GFR (MDRD) Af Amer 30 L Est GFR (MDRD) Non-Af 25 L BUN/Creatinine Ratio 16.1 Glucose 119 H Lactic Acid Calcium 8.3 L Total Bilirubin 0.90 AST 35 ALT 17 Alkaline Phosphatase 68 Troponin I High Sens Total Protein 5.4 L Albumin 3.0 L Globulin 2.4 Albumin/Globulin Ratio 1.2 Urine Color Urine Clarity Urine pH Ur Specific [place] Urine Protein Urine Glucose (UA) Urine Ketones Urine Occult Blood Urine Nitrite Urine Bilirubin Urine Urobilinogen Ur Leukocyte Esterase Urine RBC Urine WBC Ur Squamous Epith Cells Urine Bacteria Urine Mucus Ethyl Alcohol < 3.0 11/29/22 11/29/22 11/29/22 02:03 02:03 02:54 WBC RBC Hgb Hct MCV MCH MCHC RDW Std Deviation RDW Coeff of [place] Plt Count MPV Immature Gran % (Auto) Neut % (Auto) Lymph % (Auto) [place] % (Auto) Eos % (Auto) Baso % (Auto) Absolute Neuts (auto) Absolute Lymphs (auto) Nucleated RBC % Diff Path Review Platelet Estimate Anisocytosis Macrocytosis Sodium Potassium Chloride Carbon Dioxide Anion Gap BUN Creatinine Estim Creat Clear Calc Est GFR (MDRD) Af Amer Est GFR (MDRD) Non-Af BUN/Creatinine Ratio Glucose Lactic Acid 1.7 Calcium Total Bilirubin AST ALT Alkaline Phosphatase Troponin I High Sens 134 H* Total Protein Albumin Globulin Albumin/Globulin Ratio Urine Color Yellow Urine Clarity Clear Urine pH 5.0 Ur Specific [place] 1.015 Urine Protein 100 H Urine Glucose (UA) Normal Urine Ketones Negative Urine Occult Blood Negative Urine Nitrite Negative Urine Bilirubin Negative Urine Urobilinogen Normal Ur Leukocyte Esterase Negative Urine RBC 0 SEEN Urine WBC 0 SEEN Ur Squamous Epith Cells 0 SEEN Urine Bacteria 1+ Urine Mucus 0 SEEN Ethyl Alcohol Radiography Diagnostic Testing: Clinical Impression(s) from Imaging Studies Chest X-Ray 11/29/22 01:50 IMPRESSION: Right infrahilar opacity, concerning for infection. Electronically Signed: Warren Haro MD at 2:53 EDT , Foot X-Ray 11/29/22 01:57 IMPRESSION: No acute fracture or dislocation. Soft tissue swelling in the dorsum of the foot. Electronically Signed: Warren Haro MD at 2:47 EDT , 1 view chest x-ray obtained interpreted by myself as increased markings right lower lobe which I suspect may be atelectasis versus infiltrate. Allergy was in agreement felt there was a right infrahilar opacity concerning for infection. Three-view x-rays of left foot obtained interpreted by myself as no acute fractures or dislocations. Radiology in agreement. EKG Initial EKG: Attestation: I personally reviewed and interpreted this EKG as follows: Comments: Sinus rhythm with rate of 64 bpm with first-degree AV block and no acute ST segment changes Discharge Plan Dx/Rx/DC Orders Clinical Impression: Fever, Pancytopenia, Elevated troponin, Generalized weakness, Chronic kidney insufficiency Disposition Disposition: [facility]
--- NOTE | 2022-11-29 01:57 | RAD_ITS ---
INDICATION: injury EXAMINATION/TECHNIQUE: X-RAY - LEFT XR Foot Min 3 Views 3 VIEWS COMPARISON: None FINDINGS: SOFT TISSUES: Vascular calcifications. Soft tissue swelling in the dorsum of the foot.. No radiopaque foreign body. BONES/JOINTS: No acute fracture or subluxation.. Normal alignment. Preservation of the joint space.. No sclerotic or destructive changes observed. RAD/Foot min 3 Views IMPRESSION: No acute fracture or dislocation. Soft tissue swelling in the dorsum of the foot. Electronically Signed: Warren Haro MD at 2:47 EDT ,
[2022-11-29] MEDS: 0.9% Normal Saline 1,000 ML 150 ML IV ×2 (02:07→08:34)
[2022-11-29 02:19] LABS: Absolute Lymphocyte Count 0.21 X10^3/uL (0.83-4.51); Absolute Neutrophil Count 1.7 X10^3/uL (2.0-7.7); Basophil# 0.01 X10^3/uL; Basophil% 0.5 % (0-1); Hemoglobin 8.1 g/dL (13.0-16.5); Lymphocyte # 0.21 X10^3/ul (0.83-4.51); Lymphocyte % 10.4 % (19-41); Mean Corp Hgb Conc 32.4 g/dL (32-36); Mean Corpuscular Hgb 35.1 pg (27.0-32.0); Mean Corpuscular Volume 108.2 fL (80-94); Mean Platelet Vol. 10.6 fl (6.2-12.0); Monocyte# 0.13 X10^3/uL; Monocyte% 6.5 % (0-10); NRBC Flagged by Analyzer 0 % (0-5); Neutrophil # 1.66 X10^3/uL (2.7-7.7); Neutrophil % 82.6 % (47-70); POSITIVE COUNT YES; POSITIVE DIFFERENTIAL YES; POSITIVE MORPHOLOGY YES; Platelet Count 55 K/mm3 (150-450); RBC Distribution Width CV 15.7 % (11.6-14.6); RBC Distribution Width SD 62.1 fl (35.1-43.9); Red Blood Count 2.31 M/mm3 (4.6-6.2)
[2022-11-29 02:22] LABS: Differential Indicated SCAN CRITERIA MET
[2022-11-29 02:34] LABS: ALB/GLOB Ratio 1.2 RATIO (0.9-2.4); AST(SGOT) 35 U/L (15-37); Alanine Aminotransfer ALT/SGPT 17 U/L (16-61); Alkaline Phosphatase 68 U/L (45-117); Anion Gap 7 (5-15); BUN 43 mg/dL (7-18); BUN/Creat Ratio 16.1 RATIO (10-20); Calcium,Total 8.3 mg/dL (8.5-10.1); Chloride 111 mmol/L (98-107); Creatinine, Serum 2.67 mg/dL (0.70-1.30); EST Glomerular Filtration Rate 25 mL/min (>60); Est Glom Filt Rate - Afr Amer 30 mL/min (>60); Estimated Creatinine Clearance 23.11 ml/min; Globulin 2.4 g/dL (2.2-4.2); Glucose 119 mg/dL (74-106); Potassium 4.9 mmol/L (3.5-5.1); Protein, Total 5.4 g/dL (6.4-8.2); Sodium Level 140 mmol/L (136-145)
[2022-11-29 02:36] LABS: Alcohol, Blood (Medical)-Serum < 3.0 mg/dL
[2022-11-29 02:37] LABS: Lactic Acid 1.7 mmol/L (0.4-1.9)
[2022-11-29 02:58] LABS: Mucous, Urine 0 SEEN /hpf (<or=2+); Red Blood Cells-Urine 0 SEEN /hpf (0-5); Squamous Epithelial Cells - UA 0 SEEN /hpf (0-5); White Blood Cells 0 SEEN /hpf (0-5)
[2022-11-29 02:59] LABS: Anisocytosis 1+; Macrocytosis 2+; Platelet Estimate MOD DEC (ADEQ)
[2022-11-29 02:59] LABS: Color, Urine Yellow (Yellow); Glucose, Dipstick Normal (Normal); Ketone-Dipstick Negative (Negative); Leukocyte Esterase-Dipstick Negative /ul (Negative); Nitrite-Dipstick Negative (Negative); Occult Blood-Urine Negative /ul (Negative); Protein-Dipstick 100 mg/dl (Negative); Specific Gravity, Urine 1.015 (1.002-1.030); Urine Bilirubin Dipstick Negative (Negative); Urine Clarity Clear (Clear); Urine Urobilinogen Normal (Normal)
[2022-11-29] MEDS: Acetaminophen 325 MG Tablet 650 MG PO (03:01)
[2022-11-29 03:54] LABS: Bacteria 1+ /hpf (None Seen)
[2022-11-29 03:59] LABS: Troponin-I HS 134 pg/mL (3.0-78.0)
--- NOTE | 2022-11-29 04:39 | HP.PCM.HOS_ITS ---
HPI - General General Date of Admission: 11/29/22 Date of Service: 11/29/22 Chief Complaint: fall HPI Narrative EULOGIO NOGUERA, is a 82 M who presents with fall. Patient was going to the bathroom and when he was trying to sit down on the toilet he fell landing. Patient did not lose consciousness. He was unable to get himself up and was sent to the hospital. Patient states that he has been feeling okay not feeling rundown but did have a fall on Friday where he missed took something as being his night table and when he tried to grab it fell forward. Was able to get himself up at that time. They did a work-up in the emergency room this morning and patient was found to be pancytopenic which is actually not a new phenomenon but worse than previous, his creatinine was elevated from his baseline at 2.6 and a troponin was checked and was elevated at 134. Patient denies any chest pain. Urinalysis was performed and was unremarkable. Chest x-ray was concerning for a right lower lobe infiltrate patient was ordered IV fluids in [facility] emergency room. The hospital service was contacted for further admission. FOR[facility]LY [facility], LATER [facility] Medical History Alcohol use Ambulates with cane Atherosclerotic heart disease of [place] coronary artery without angina pectoris Atrial fibrillation Atrial fibrillation and flutter Cardiology follow-up encounter Carotid artery stenosis Dietary restriction Emphysema of lung Essential hypertension Former smoker Hematemesis/vomiting blood High cholesterol History of atrial fibrillation History of cardioversion (~05/09/20) History of coronary artery disease History of echocardiogram History of GI bleed History of right inguinal hernia History of stress test History of transesophageal echocardiography (ROSI) History of umbilical hernia Hx of ulcerative colitis Hypercholesterolemia Hyperlipidemia Hypertension Injury of head and neck care home (current) use 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 Mitral valve insufficiency PAD (peripheral artery disease) Premature atrial contractions Right carotid bruit Shortness of breath on exertion Subclavian artery stenosis, left (~10/15/19) Thrombocytopenia Thrombocytopenia Thyroid disease Ulcerative colitis Ulcerative colitis Upper GI bleed Upper GI bleed Walker as ambulation aid Wears glasses Wears hearing aid Home Medications ferrous sulfate 325 mg (65 mg iron) tablet 325 mg PO DAILY vitamin 05/28/15 [History Last Taken 05/09/20] zinc gluconate 50 mg tablet 50 mg PO DAILY supplement 05/28/15 [History Last Taken 05/09/20] vitamin B complex 1 each PO DAILY vitamin 02/07/16 [History Last Taken 05/09/20] aspirin 81 mg tablet,delayed release 81 mg PO DAILY@0800 heart health 08/29/16 [History Last Taken 04/23/21] levothyroxine 50 mcg tablet 75 mcg PO DAILY thyroid 06/13/20 [History Last Taken Unknown] balsalazide 750 mg capsule (Colazal) 2,250 mg PO BID 05/16/21 [History Last Taken Unknown] atorvastatin 40 mg tablet (Lipitor) 40 mg PO DAILY #90 tabs 03/13/22 [Rx Last Taken Unknown] chlorthalidone 25 mg tablet 25 mg PO DAILY #90 tabs 05/21/22 [Rx Last Taken Unknown] amiodarone 200 mg tablet 200 mg PO DAILY Afib/Flutter #90 tabs 05/27/22 [Rx Last Taken Unknown] amlodipine 10 mg tablet 10 mg PO DAILY #90 tabs 06/20/22 [Rx Last Taken Unknown] carvedilol 6.25 mg tablet (Coreg) 6.25 mg PO BID #180 tabs 10/17/22 [Rx Last T aken Unknown] lisinopril 20 mg tablet 20 mg PO BID #180 tabs 11/26/22 [Rx Last Taken Unknown] hydralazine 50 mg tablet 50 mg PO BID 11/29/22 [History Last Taken Unknown] Allergy/AdvReac Type Severity Reaction Status Date / Time hydrochlorothiazide Allergy Severe Rash Verified 11/29/22 01:38 furosemide [From Lasix] Allergy Severe Verified 11/29/22 01:38 Rash Itchy lovastatin [From Mevacor] Allergy Rash Verified 11/29/22 01:38 amlodipine AdvReac Swelling Verified 11/29/22 01:38 Family History Father CAD (coronary artery disease) Mother Cancer breast Surgical History Aortocoronary bypass status (~02/12/17) History of cardiac catheterization History of hand surgery History of right inguinal hernia repair History of umbilical hernia repair History of vasectomy Hx of CABG Hx of colonoscopy Hx of esophagogastroduodenoscopy Hx of heart bypass surgery S/P right inguinal hernia repair S/P umbilical hernia repair, follow-up exam Status post insertion of drug-eluting stent into right coronary artery for coronary artery disease (~04/2009) Social History adopted: No household members: spouse housing: house number of children: 2 current occupational status: retired Smoking Status: Former smoker Tobacco: How many years used: 50 (stopped about 10 yrs ago) how long ago did patient quit smokin years ago alcohol intake: current alcohol intake frequency: 3 or more drinks per day Alcohol type: beer, wine and hard liquor substance use type: does not use caffeine: Yes Type: coffee Number of servings: 2 ROS ROS Narrative Chronic presbycusis and currently does not have his hearing aids in. Denies any changes to his voice. States that he has been eating and drinking well. Denies any fever or chills. Did have some nausea when this event occurred. All review of systems were negative except as mentioned above in the history of present illness and the other review of systems. Vital Signs Vital Signs Vital Signs: 11/29/22 01:38 11/29/22 01:42 11/29/22 02:42 Temperature 38.3 C H 38.2 C H Temperature Source Oral Temporal Pulse Rate 69 67 Respiratory Rate 17 16 Respiratory Effort Normal Non-Labored Respiratory Depth Normal Respiratory Pattern Normal Blood Pressure 138/61 H 137/53 H Blood Pressure Mean 86 81 Pulse Ox 94 94 Oxygen Delivery Method Room Air Room Air Room Air 11/29/22 03:00 11/29/22 04:00 Temperature 38.2 C H Temperature Source Temporal Pulse Rate 67 59 L Respiratory Rate 15 16 Respiratory Effort Respiratory Depth Respiratory Pattern Blood Pressure 137/53 H 125/53 H Blood Pressure Mean 81 77 Pulse Ox 95 96 Oxygen Delivery Method Room Air Room Air Weight Weight: 81.8 kg Body Mass Index (BMI) 25.1 Physical Exam Const alert and no apparent distress Constitutional Narrative: Hard of hearing. Voice is monotone and sometimes difficult to understand at times. When he hears questions, he answers them appropriately. HEENT normocephalic and head/scalp atraumatic HEENT Narrative: Mucous membranes dry Eyes EOMs intact bilaterally Eyes Narrative: No icterus Resp normal respiratory effort, no retractions, no use of accessory muscles and clear to auscultation bilaterally Cardio regular rate, regular rhythm, S1 normal heart sound and S2 normal heart sound GI normal to inspection, nondistended, normoactive bowel sounds, soft to palpation, non-tender and non-distended Extremity Extremity Narrative: Slight edema of the left lower extremity. Skin Skin Narrative: Skin tears noted on the left anterior hodgson. Neuro moves all extremities Sensorium / Orientation: awake and alert Psych affect normal Results Lab / Micro Data Result Diagrams: 11/29/22 02:03 11/29/22 02:03 Labs: Laboratory Results - last 24 hr 11/29/22 02:03: WBC 2.0 L, RBC 2.31 L, Hgb 8.1 L, Hct 25.0 L, MCV 108.2 H, MCH 35.1 H, MCHC 32.4, RDW Std Deviation 62.1 H, RDW Coeff of Chanel 15.7 H, Plt Count 55 L, MPV 10.6, Immature Gran % (Auto) 0.000, Neut % (Auto) 82.6 H, Lymph % (A uto) 10.4 L, [place] % (Auto) 6.5, Eos % (Auto) 0.0, Baso % (Auto) 0.5, Absolute Neuts (auto) 1.7 L, Absolute Lymphs (auto) 0.21 L, Nucleated RBC % 0, Diff Path Review May foll, Platelet Estimate MOD DEC, Anisocytosis 1+, Macrocytosis 2+ 11/29/22 02:03: Sodium 140, Potassium 4.9, Chloride 111 H, Carbon Dioxide 22.0, Anion Gap 7, BUN 43 H, Creatinine 2.67 H, Estim Creat Clear Calc 23.11, Est GFR (MDRD) Af Amer 30 L, Est GFR (MDRD) Non-Af 25 L, BUN/Creatinine Ratio 16.1, Glucose 119 H, Calcium 8.3 L, Total Bilirubin 0.90, AST 35, ALT 17, Alkaline Phosphatase 68, Total Protein 5.4 L, Albumin 3.0 L, Globulin 2.4, Albumin/Globulin Ratio 1.2 11/29/22 02:03: Ethyl Alcohol < 3.0 11/29/22 02:03: Lactic Acid 1.7 11/29/22 02:03: Troponin I High Sens 134 H* 11/29/22 02:54: Urine Color Yellow, Urine Clarity Clear, Urine pH 5.0, Ur Specific Yeoman 1.015, Urine Protein 100 H, Urine Glucose (UA) Normal, Urine Ketones Negative, Urine Occult Blood Negative, Urine Nitrite Negative, Urine Bilirubin Negative, Urine Urobilinogen Normal, Ur Leukocyte Esterase Negative, Urine RBC 0 SEEN, Urine WBC 0 SEEN, Ur Squamous Epith Cells 0 SEEN, Urine Bacteria 1+, Urine Mucus 0 SEEN Micro: Microbiology 11/29/22 02:06 Nasal Secretion SARS-CoV-2 & FLU Antigen (Rapid) - Final Radiology Impression Chest X-Ray 11/29/22 01:50 IMPRESSION: Right infrahilar opacity, concerning for infection. Electronically Signed: Warren Haro MD at 2:53 EDT , Foot X-Ray 11/29/22 01:57 IMPRESSION: No acute fracture or dislocation. Soft tissue swelling in the dorsum of the foot. Electronically Signed: Warren Haro MD at 2:47 EDT , Assessment & Plan Assessment/Plan (1) Pneumonia: PLAN: Suspected pneumococcal Chest x-ray personally reviewed and shows a patchy right lower lobe infiltrate. Not present on previous chest x-rays from 2021. Plan: Pulmonary toilet, antibiotics with ceftriaxone and azithromycin, check urinary antigens for Streptococcus and Legionella, check sputum culture (2) Elevated troponin: PLAN: Unclear significance. Patient was not having any chest pain and this was not a syncopal episode. Unfortunately was checked and will follow that up with serial troponins as well as an echocardiogram. I would suspect there is at least some component that is skewed due to his chronic kidney disease (3) Pancytopenia: PLAN: Chronic but does appear to be worse. We will continue to monitor. With his anemia, we will check an iron, ferritin, total iron-binding capacity, B12, TSH and folate. No need to transfuse at this time. (4) Generalized weakness: PLAN: Patient had 2 falls. In the interim due to syncope but patient was unable to get up today. PT OT evaluate and treat Cannot rule out need for jail facility upon discharge. (5) Skin tear: PLAN: On left hodgson: Status post fall. Consult wound care (6) Acute renal insufficiency: PLAN: On CKD 3B/CKD 4 Creatinine is up from his baseline Clinically appears dry And will give fluids PLAN: Plan Chronic conditions * Coronary artery disease: Status post CABG and stents. Holding the patient's aspirin given the thrombocytopenia. Continue with carvedilol * Hypertension: Continue with amlodipine and lisinopril * A-fib: Continue with amiodarone. Previously was not on anticoagulation given history of GI bleed. * Hyperlipidemia: Continue with statin * Peripheral arterial disease: Follow-up with vascular surgery per routine VTE prophylaxis: Avoiding chemical prophylaxis given thrombocytopenia. SCDs CODE STATUS: Addressed with the patient. Patient wishes to be DNR Comfort Care arrest no intubation. He stated that he did not want heroics. Disposition: To be determined. Given the patient's multiple acute issues as well as his multiple profound chronic medical conditions, anticipate this patient being hospitalized for 48 to 72 hours. Charges/Coding Visit Charges Inpatient E&M: 80478 Init Hosp L3
--- NOTE | 2022-11-29 05:22 | ECHOCS_ITS ---
Reason For Study: ELEVATED TROPONINS Procedure This was a 2D Doppler, Color Flow transthoracic echocardiogram. The study was technically difficult. Exam performed portable in patient room. Left Ventricle Normal LV size. Moderate concentric left ventricular hypertrophy. The left ventricular ejection fraction is 60 %. Diastolic function is indeterminate. Right Ventricle Normal right ventricle. Atria The left atrium is severely enlarged. The right atrium is moderately enlarged. Mitral Valve Severe MAC versus mitral annuloplasty ring. Mild (1+) mitral valve insufficiency. Tricuspid Valve Moderate (2+) tricuspid valve insufficiency. Right ventricular systolic pressure estimated to be 77 mmHg. Severe pulmonary hypertension. Aortic Valve There is no aortic stenosis. Trivial aortic valve insufficiency. Pulmonic Valve The pulmonic valve is not well visualized. Great Vessels Normal sized aortic root. Pericardium/Pleural No pericardial effusion. Medication Diluted definity 2ml given slow IV push to enhance endocardial definition. MMode/2D Measurements & Calculations LVIDd: 5.7 cm IVSd: 1.5 cm Ao root diam: 3.1 cm LVIDs: 4.3 cm LVPWd: 1.3 cm RVDd: 4.6 cm FS: 25.3 % LAV(MOD-bp): 82.1 ml LVAd ap4: 38.9 cm2 SV(MOD-sp4): 85.0 ml LAV(MOD-bp) Indexed: 41.4 ml/m2 LVLd ap4: 8.3 cm LAV(MOD-sp2): 75.9 ml EDV(MOD-sp4): 148.6 ml LAV(MOD-sp4): 79.5 ml EDV(sp4-el): 154.1 ml LVAs ap4: 23.3 cm2 LVLs ap4: 7.2 cm ESV(MOD-sp4): 63.6 ml ESV(sp4-el): 64.4 ml EF(MOD-sp4): 57.2 % EF(sp4-el): 58.2 % SV(sp4-el): 89.7 ml LA A4 area: 28.0 cm2 LA dimension(2D): 4.9 cm RA A4 area: 24.8 cm2 Time Measurements MV dec time: 0.19 sec Doppler Measurements & Calculations MV E max víctor: 124.9 cm/sec Lat Peak E' Víctor: 13.5 cm/sec Med Peak E' Víctor: 10.5 cm/sec MV A max víctor: 71.7 cm/sec E/E' lat: 9.3 E/E' med: 11.9 MV E/A: 1.7 Ao V2 max: 146.6 cm/sec LV V1 max: 80.1 cm/sec PA V2 max: 85.0 cm/sec Ao max P.6 mmHg LV V1 max P.6 mmHg Ao V2 mean: 112.4 cm/sec LV V1 mean P.6 mmHg Ao mean P.5 mmHg LV V1 mean: 60.0 cm/sec Ao V2 VTI: 37.9 cm LV V1 VTI: 21.9 cm AV (velocity ratio): 0.58 TR max víctor: 395.5 cm/sec TR max P.6 mmHg ECHO/Echo Complete W/ Contrast Interpretation Summary The study was technically difficult. Moderate concentric left ventricular hypertrophy. The left ventricular ejection fraction is 60 %. Diastolic function is indeterminate. The left atrium is severely enlarged. 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 Moderate (2+) tricuspid valve insufficiency. Severe pulmonary hypertension. The right atrium is moderately enlarged. Ordering Physician: Jakob Alexander Referring Physician: KAITLYN MIGUEL Performed By: Rosalia Khan RDCS
[2022-11-29 07:06] LABS: Absolute Neutrophil Count 1.7 X10^3/uL (2.0-7.7); Hematocrit 25.3 % (40-54); Hemoglobin 8.1 g/dL (13.0-16.5); Mean Corpuscular Hgb 35.2 pg (27.0-32.0); Mean Platelet Vol. 11.2 fl (6.2-12.0); NRBC Flagged by Analyzer 0 % (0-5); POSITIVE COUNT YES; POSITIVE DIFFERENTIAL YES; POSITIVE MORPHOLOGY YES; Platelet Count 53 K/mm3 (150-450); RBC Distribution Width CV 15.9 % (11.6-14.6); RBC Distribution Width SD 63.7 fl (35.1-43.9); White Blood Count 2.3 K/mm3 (4.4-11.0)
[2022-11-29] MEDS: Levothyroxine 75 MCG Tablet PO (07:07)
[2022-11-29 07:11] LABS: Differential Indicated SCAN CRITERIA MET
[2022-11-29 07:32] LABS: Scan Smear per Review Criteria MANUAL DIFF
[2022-11-29 07:38] LABS: Lymphocyte 18 % (19-41); Metamyelocyte 17 % (0-1); Monocyte 6 % (0-10); Neutrophil-Band 20 % (0-5); Neutrophil-Segmented 39 % (47-70); Total Cells Counted 100 (MANUAL DIFF)
[2022-11-29 07:40] LABS: Platelet Estimate MOD DEC (ADEQ)
[2022-11-29 07:41] LABS: Ovalocyte RARE
[2022-11-29 07:42] LABS: Macrocytosis 1+
[2022-11-29 07:46] LABS: Anion Gap 8 (5-15); BUN 45 mg/dL (7-18); BUN/Creat Ratio 17.8 RATIO (10-20); Calcium,Total 8.1 mg/dL (8.5-10.1); Chloride 115 mmol/L (98-107); Creatinine, Serum 2.53 mg/dL (0.70-1.30); EST Glomerular Filtration Rate 26 mL/min (>60); Est Glom Filt Rate - Afr Amer 32 mL/min (>60); Estimated Creatinine Clearance 23.64 ml/min; Ferritin 578 ng/mL (26-388); Glucose 99 mg/dL (74-106); Iron 6 ug/dL (65-175); Iron Binding Capacity,Total 187 ug/dL (250-450); PERCENT IRON SATURATION 3.2 % (15.0-55.0); Potassium 4.8 mmol/L (3.5-5.1); Sodium Level 143 mmol/L (136-145); Thyroid Stim Hormone (TSH) 0.75 uIU/mL (0.358-3.74); Troponin-I HS 139 pg/mL (3.0-78.0)
[2022-11-29 08:27] LABS: Vitamin B12 228 pg/mL (211-911)
[2022-11-29 08:43] LABS: Neutrophil # 1.72 X10^3/uL (2.7-7.7)
[2022-11-29 08:44] LABS: Absolute Lymphocyte Count 0.41 X10^3/uL (0.83-4.51); Lymphocyte # 0.41 X10^3/ul (0.83-4.51)
--- NOTE | 2022-11-29 08:57 | PCM.HOSP.N ---
Hospitalist Note 82-year-old male history of alcohol use, A-fib, emphysema, coronary artery disease, GI bleed, ulcerative colitis presented to [facility] 11/28 for falls, weakness, fever. At time of evaluation he reports feeling roughly the same and has no acute or focal complaints. #Fever/chills and gram-negative didi bacteremia -Tmax 101 while in the hospital -Pancytopenia with 20 bands -Checks x-ray in ED concerning for right lower lobe infiltrate -Blood cultures -Urine antigens -Rocephin and azithromycin initially started due to concern for community-acquired pneumonia however patient continued to be febrile so Rocephin was changed to Zosyn 1 2 out of 2 blood cultures growing gram-negative rods -Await cultures and speciation #Elevated troponin -Suspect type II in setting of bacteremia and CKD -Troponin initially 134 and went to 139 down trended to 92 #Severe pulmonary hypertension/severe mitral annular calcification -Echocardiogram 11/29 obtained with moderate concentric left ventricular hypertrophy with inability to assess diastolic dysfunction, severe mitral annular calcification, moderate tricuspid valve insufficiency, EF of 60% with left and right atrium is enlarged and severe pulmonary hypertension -Last echocardiogram 09/26/2020 with segmental dysfunction, EF 65% with bilateral atrial enlargement and moderate to severe mitral annular calcification with mild to moderate tricuspid insufficiency and RVSP estimated to be 34 inability to assess diastolic dysfunction -Not acutely in respiratory distress, will need to monitor BP and respiratory status closely. Follows with cardiology on an outpatient basis, may need to be considered for surgical eval once medically stable #CKD stage IIIb -Appears slightly up overall however most recent value in July was 2.44 with admission being 2.67 with variable readings prior to that, down trended slightly today #Pancytopenia -Chronic but appears to be worse -Worsening likely secondary to underlying infection -Has followed with Dr. Mcintyre in the past -Iron panel consistent with anemia of chronic disease -Liver panel fairly benign #Hypothyroidism -TSH 0.75 -Continue Synthroid #History of ulcerative colitis -Continue Colazal #hx CAD status post CABG and stenting -CABG x2- ZARAGOZA to LAD, Aorto post descending coronary artery to revers SVG 02/12/17; atherectomy to ostial RCA, LINDY to Prox/Mid RCA 04/2009 -Aspirin held due to thrombocytopenia, carvedilol and atorvastatin continued #A-fib -Continue amiodarone and will decrease carvedilol due to soft pressures, not on AC due to history of GI bleed #Alcohol use history -EtOH negative -We will give B12, thiamine, folate supplementation #Falls -Treat present illness -PT/OT #Hx empyema with VATS -In August 2020 at [facility] after CT surgery evaluation -Had resultant pneumothorax at that time #DVT ppx: SCDs given thrombocytopenia Sammie Castaneda MD
[2022-11-29 09:23] LABS: Troponin-I HS 128 pg/mL (3.0-78.0)
[2022-11-29] MEDS: Ceftriaxone 1 GM/50 ML BAG IV (09:34)
[2022-11-29] MEDS: Ferrous Sulfate 325 MG Tablet PO (09:46)
[2022-11-29] MEDS: amLODIPine 10 MG Tablet PO (09:47)
[2022-11-29] MEDS: Carvedilol 6.25 MG Tablet PO (09:47)
[2022-11-29] MEDS: hydrALAZINE 50 MG Tablet PO ×2 (09:47→21:11)
[2022-11-29] MEDS: Thiamine Hydrochloride 100 MG Tablet PO (10:34)
[2022-11-29] MEDS: Amiodarone 200 MG Tablet PO (10:34)
[2022-11-29 13:39] LABS: Troponin-I HS 92 pg/mL (3.0-78.0)
[2022-11-29 13:53] LABS: Pathologist Review Reviewed
[2022-11-29 13:53] LABS: Pathologist Review Reviewed
--- NOTE | 2022-11-29 15:20 | CASEMGMT ---
RN CM Face to Face with patient for initial transition planning/care coordination assessment. RN CM introduced self and role at [facility]. Patient sitting in chair, alert and oriented. Patient willing to participate in assessment and is able to answer all questions appropriately. Care providers, pharmacy, and demographics verified. Patient wishes to discharge but is will to go to SNF if recommended and prefers TCU. Will monitor progress with therapy. Patient states he has no further needs or concerns at this time. CM to follow for discharge planning needs that may arise. 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 Patient states he was independent at home. Patinet states he will have someone to look after his . Transportation: self, friends DME/HHC: Patient has shower chair, raised toilet, cane, rollator, and grab bars at home. [facility] Has had previous [facility]HC but does not recall agency. No previous SNF. Disposition Plan: TBD, anticipate SNF at discharge. Fe MONSALVE, RN, CM
--- NOTE | 2022-11-29 15:55 | CASEMGMT ---
Per RN CM patient is interested in [facility] TCU if SNF is recommended. SW made a referral to Sh[facility] in TCU. Shahnaz is not sure if she will have any beds. Patient will be here through the weekend. SW did provide patient with?a list of?senior care facility providers including quality and resource use data and consistent with patient?s preferred geographic region, medical needs, and insurance network were provided from [facility]. Ya Pyle SKOOG OPERATORRobert COOPER
[2022-11-29] MEDS: Atorvastatin Calcium 40 MG Tablet PO (21:11)
[2022-11-29] MEDS: Carvedilol 3.125 MG TABLET PO (21:14)
[2022-11-30] VITALS (11 sets, daily range): BP systolic 97–128; BP diastolic 45–57; PULSE 60–77; RESP 16–18; TEMP 36.4–36.8; O2SAT 92–96
[2022-11-30 06:38] LABS: Absolute Lymphocyte Count 0.21 X10^3/uL (0.83-4.51); Basophil# 0.02 X10^3/uL; Basophil% 0.6 % (0-1); Hemoglobin 8.5 g/dL (13.0-16.5); Lymphocyte # 0.21 X10^3/ul (0.83-4.51); Lymphocyte % 6.1 % (19-41); Mean Corp Hgb Conc 32.7 g/dL (32-36); Mean Corpuscular Hgb 35.3 pg (27.0-32.0); Mean Corpuscular Volume 107.9 fL (80-94); Monocyte# 0.18 X10^3/uL; Monocyte% 5.2 % (0-10); NRBC Flagged by Analyzer 0 % (0-5); Neutrophil # 3.03 X10^3/uL (2.7-7.7); Neutrophil % 87.8 % (47-70); POSITIVE COUNT YES; POSITIVE DIFFERENTIAL YES; POSITIVE MORPHOLOGY YES; RBC Distribution Width CV 15.7 % (11.6-14.6); RBC Distribution Width SD 62.4 fl (35.1-43.9); Red Blood Count 2.41 M/mm3 (4.6-6.2); White Blood Count 3.5 K/mm3 (4.4-11.0)
[2022-11-30] MEDS: Levothyroxine 75 MCG Tablet PO (06:47)
[2022-11-30 06:52] LABS: Platelet Count 48 K/mm3 (150-450)
[2022-11-30 06:53] LABS: Differential Indicated SCAN CRITERIA MET
[2022-11-30 07:05] LABS: Differential Comment SCANNED
[2022-11-30 07:06] LABS: Platelet Estimate MKD DEC (ADEQ)
[2022-11-30 07:11] LABS: ALB/GLOB Ratio 0.9 RATIO (0.9-2.4); AST(SGOT) 33 U/L (15-37); Alanine Aminotransfer ALT/SGPT 19 U/L (16-61); Albumin, Serum 2.5 g/dL (3.2-5.0); Alkaline Phosphatase 63 U/L (45-117); Anion Gap 6 (5-15); BUN 57 mg/dL (7-18); BUN/Creat Ratio 19.5 RATIO (10-20); Calcium,Total 8.1 mg/dL (8.5-10.1); Chloride 112 mmol/L (98-107); Creatinine, Serum 2.93 mg/dL (0.70-1.30); EST Glomerular Filtration Rate 22 mL/min (>60); Est Glom Filt Rate - Afr Amer 27 mL/min (>60); Estimated Creatinine Clearance 20.42 ml/min; Globulin 2.7 g/dL (2.2-4.2); Glucose 99 mg/dL (74-106); Potassium 5.2 mmol/L (3.5-5.1); Protein, Total 5.2 g/dL (6.4-8.2); Sodium Level 138 mmol/L (136-145)
[2022-11-30 07:18] LABS: BNP,B-Type NATRIURETIC PEPTIDE 1355.2 pg/mL (0-100)
--- NOTE | 2022-11-30 07:31 | PCM.PN.HOSP ---
Reason for Visit Reason for Visit: Diagnoses Other pancytopenia (11/29/22) Pneumonia, unspecified organism (11/29/22) Disorder of kidney and ureter, unspecified (11/29/22) Weakness (11/29/22) Other specified abnormalities of plasma proteins (11/29/22) Subjective Subjective Patient continues to deny any specific complaints and denies having any shortness of breath or cough. Does have some oozing from right elbow wound and left leg wound with dressings to be changed this a.m. Objective Data Objective Data Vital Signs: Vital Signs Temp Pulse Resp BP Pulse Ox O2 Del Method 98.2 F 77 16 124/57 H 96 Room Air 11/30/22 05:20 11/30/22 05:20 11/30/22 05:20 11/30/22 05:20 11/30/22 05:20 11/30/22 05:20 Oxygen Delivery Method Room Air Weight: 78.5 kg Body Mass Index (BMI) 24.8 Intake & Output: Intake and Output for Last 24 Hours 11/28/22 11/29/22 11/30/22 23:59 23:59 23:59 Intake Total 2682.5 / 2682.5 50 / 50 Output Total 150 / 150 30 / 30 Balance 2532.5 / 2532.5 Lab / Micro Data Result Diagrams: 11/30/22 06:10 11/30/22 06:10 Labs: Laboratory Results - last 24 hr 11/29/22 02:03: Diff Path Review Reviewed 11/29/22 06:55: Immature Gran % (Auto) SLAB CONDITIONER SUPERVISOR, Neut % (Auto) SLAB CONDITIONER SUPERVISOR, Lymph % (Auto) SLAB CONDITIONER SUPERVISOR, [place] % (Auto) SLAB CONDITIONER SUPERVISOR, Eos % (Auto) SLAB CONDITIONER SUPERVISOR, Baso % (Auto) SLAB CONDITIONER SUPERVISOR, Absolute Lymphs (auto) 0.41 L, Total Counted 100, Neutrophils % (Manual) 39 L, Band Neutrophils % 20 H, Lymphocytes % (Manual) 18 L, Monocytes % (Manual) 6, Metamyelocytes % 17 H, Diff Path Review Reviewed, Platelet Estimate MOD DEC, Microcytosis SLAB CONDITIONER SUPERVISOR, Macrocytosis 1+, Ovalocytes RARE 11/29/22 06:55: Sodium 143, Potassium 4.8, Chloride 115 H, Carbon Dioxide 20.0 L, Anion Gap 8, BUN 45 H, Creatinine 2.53 H, Estim Creat Clear Calc 23.64, Est GFR (MDRD) Af Amer 32 L, Est GFR (MDRD) Non-Af 26 L, BUN/Creatinine Ratio 17.8, Glucose 99, Calcium 8.1 L, Iron 6 L, TIBC 187 L, Iron Saturation 3.2 L, Ferritin 578 H, Troponin I High Sens 139 H*, Folate 5.50, TSH 0.75 11/29/22 06:55: Vitamin B12 228 11/29/22 08:51: Troponin I High Sens 128 H* 11/29/22 12:39: Troponin I High Sens 92 H 11/30/22 06:10: WBC 3.5 L, RBC 2.41 L, Hgb 8.5 L, Hct 26.0 L, MCV 107.9 H, MCH 35.3 H, MCHC 32.7, RDW Std Deviation 62.4 H, RDW Coeff of Chanel 15.7 H, Plt Count 48 L*, MPV 12.0, Immature Gran % (Auto) 0.300, Neut % (Auto) 87.8 H, Lymph % (Auto) 6.1 L, [place] % (Auto) 5.2, Eos % (Auto) 0.0, Baso % (Auto) 0.6, Absolute Neuts (auto) 3.0, Absolute Lymphs (auto) 0.21 L, Nucleated RBC % 0, Differential Comment SCANNED, Diff Path Review October, Platelet Estimate MKD 11/30/22 06:10: Sodium 138, Potassium 5.2 H, Chloride 112 H, Carbon Dioxide 20.0 L, Anion Gap 6, BUN 57 H, Creatinine 2.93 H, Estim Creat Clear Calc 20.42, Est GFR (MDRD) Af Amer 27 L, Est GFR (MDRD) Non-Af 22 L, BUN/Creatinine Ratio 19.5, Glucose 99, Calcium 8.1 L, Total Bilirubin 0.80, AST 33, ALT 19, Alkaline Phosphatase 63, Total Protein 5.2 L, Albumin 2.5 L, Globulin 2.7, Albumin/Globulin Ratio 0.9, Free T4 1.20 11/30/22 06:10: B-Natriuretic Peptide 1355.2 H Micro: Microbiology 11/29/22 02:03 Blood Culture (Wb) - Anticubital Left Blood Culture - Preliminary GNR lactose turret lathe operator 11/29/22 02:30 Blood Culture (Wb) - Anticubital Right Blood Culture - Preliminary GNR lactose turret lathe operator 11/29/22 02:06 Nasal Secretion SARS-CoV-2 & FLU Antigen (Rapid) - Final Radiography Diagnostic Testing: Radiology Impression Echocardiogram 11/29/22 05:22 Interpretation Summary The study was technically difficult. Moderate concentric left ventricular hypertrophy. The left ventricular ejection fraction is 60 %. Diastolic function is indeterminate. The left atrium is severely enlarged. 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 Moderate (2+) tricuspid valve insufficiency. Severe pulmonary hypertension. The right atrium is moderately enlarged. Ordering Physician: Jakob Alexander Referring Physician: KAITLYN MIGUEL Performed By: Rosalia Khan RDCS Physical Exam Narrative General: Alert, no apparent distress HEENT: Atraumatic, normocephalic Eyes: Anicteric, normal conjunctiva, extraocular movements grossly intact Neck: Supple Respiratory: Normal respiratory effort, somewhat coarse in right lower base greater than left Cardiovascular: Regular rate GI: Soft, nontender, nondistended Extremities: No edema Musculoskeletal: Moving all extremities Neuro: No overt focal neurological deficits Skin: Right elbow with some oozing from skin tear, left leg wrapped Psych: Cooperative Assessment & Plan Assessment/Plan (1) Acute renal insufficiency: (2) Pneumonia: (3) Chronic kidney disease (CKD): QUALIFIERS: Chronic kidney disease stage: stage 4 (severe) Qualified Code(s): N18.4 - Chronic kidney disease, stage 4 (severe) (4) Atrial fibrillation: QUALIFIERS: Atrial fibrillation type: paroxysmal Qualified Code(s): I48.0 - Paroxysmal atrial fibrillation (5) Bacteremia: PLAN: Plan #Fever/chills and gram-negative didi bacteremia -Tmax 101 while in the hospital -Pancytopenia with 20 bands -Checks x-ray in ED concerning for right lower lobe infiltrate -Blood cultures -Urine antigens -Rocephin and azithromycin initially started due to concern for community-acquired pneumonia however patient continued to be febrile so Rocephin was changed to Zosyn 1 2 out of 2 blood cultures growing gram-negative rods -Await cultures and speciation -11/30: Continue Zosyn, prelim blood cultures with gram-negative didi lactose turret lathe operator's. Awaiting final cultures #Elevated troponin -Suspect type II in setting of bacteremia and CKD -Troponin initially 134 and went to 139 down trended to 92 #Severe pulmonary hypertension/severe mitral annular calcification -Echocardiogram 11/29 obtained with moderate concentric left ventricular hypertrophy with inability to assess diastolic dysfunction, severe mitral annular calcification, moderate tricuspid valve insufficiency, EF of 60% with left and right atrium is enlarged and severe pulmonary hypertension -Last echocardiogram 09/26/2020 with segmental dysfunction, EF 65% with bilateral atrial enlargement and moderate to severe mitral annular calcification with mild to moderate tricuspid insufficiency and RVSP estimated to be 34 inability to assess diastolic dysfunction -Not acutely in respiratory distress, will need to monitor BP and respiratory status closely.? Follows with cardiology on an outpatient basis, may need to be considered for surgical eval once medically stable -11/30: BNP 1355, had a previous of 528. Chest x-ray appears to possibly have slight right-sided effusion, given one-time dose of Bumex with O2 sat 92% on room air #CKD stage IIIb -Appears slightly up overall however most recent value in July was 2.44 with admission being 2.67 with variable readings prior to that, down trended slightly today -11/30: Creatinine worsened again to 2.93 with a BUN of 57 with a slight increase in potassium and chloride, could potentially be cardiorenal. Giving dose of Bumex and repeat BMP this afternoon. Can consider nephrology consult if not improving #Pancytopenia -Chronic but appears to be worse -Worsening likely secondary to underlying infection -Has followed with Dr. Mcintyre in the past -Iron panel consistent with anemia of chronic disease -Liver panel fairly benign -11/30: Still suspect in part this is due to to infection though if no improvement may need further work-up or bone marrow biopsy as an outpatient if not already done #Hypothyroidism -TSH 0.75 -Continue Synthroid #History of ulcerative colitis -Continue Colazal #hx CAD status post CABG and stenting -CABG x2- ZARAGOZA to LAD, Aorto post descending coronary artery to revers SVG 02/12/17; atherectomy to ostial RCA, LINDY to Prox/Mid RCA 04/2009 -Aspirin held due to thrombocytopenia, carvedilol and atorvastatin continued #A-fib -Continue amiodarone and will decrease carvedilol due to soft pressures, not on AC due to history of GI bleed -11/30: Though amiodarone was still 200 mg on his home med list cardiology note recently reported he was to decrease to 100 mg, will reflect this change while inpatient #Alcohol use history -EtOH negative -We will give B12, thiamine, folate supplementation #Falls -Treat present illness -PT/OT #Hx empyema with VATS -In August 2020 at [facility] after CT surgery evaluation -Had resultant pneumothorax at that time #DVT ppx: SCDs ordered given thrombocytopenia Sammie Castaneda MD Charges/Coding Visit Charges Inpatient E&M: 18881 Subs Hosp L2
[2022-11-30] MEDS: Cyanocobalamin 500 MCG Tablet 1000 MCG PO (09:02)
[2022-11-30] MEDS: Thiamine Hydrochloride 100 MG Tablet PO (09:03)
[2022-11-30] MEDS: Ferrous Sulfate 325 MG Tablet PO (09:03)
[2022-11-30] MEDS: Folic Acid 1 MG Tablet 2 MG PO (09:03)
[2022-11-30] MEDS: Carvedilol 3.125 MG TABLET PO ×2 (09:03→22:01)
[2022-11-30] MEDS: Bumetanide 1 MG/4 ML Vial IV (09:04)
[2022-11-30] MEDS: Amiodarone 200 MG Tablet PO (09:04)
[2022-11-30] MEDS: 0.9% Saline Lock 10 ML Syringe IV (09:04)
--- NOTE | 2022-11-30 15:15 | CASEMGMT ---
Social Work Chart reviewed and noted therapy evaluations recommending continued therapy at time of discharge. Met with patient in room. A male family friend in room and patient gave permission to speak with friend present. Patient confirms first choice for SNF is [facility]. Educated uncertain whether there will be a bed available, so additional choices would be helpful. Patient looked at list of options generated from [facility], as well as discussed [place] assisted living (due to proximity to patient's home). Educated [facility] is private pay. Patient reports his is on the list of WVM due to limited mobility and on the cusp dementia. Supportive listening provided to patient. Choices: [facility] and then [facility] or [place]. Plan: Short term SNF, pending acceptance at a facility with referral to [facility] in place. -HERRERA Abraham, NIKITA
[2022-11-30 15:20] LABS: Anion Gap 10 (5-15); BUN 62 mg/dL (7-18); BUN/Creat Ratio 20.1 RATIO (10-20); Calcium,Total 8.3 mg/dL (8.5-10.1); Chloride 108 mmol/L (98-107); Creatinine, Serum 3.08 mg/dL (0.70-1.30); EST Glomerular Filtration Rate 21 mL/min (>60); Est Glom Filt Rate - Afr Amer 25 mL/min (>60); Estimated Creatinine Clearance 19.42 ml/min; Glucose 139 mg/dL (74-106); Potassium 4.4 mmol/L (3.5-5.1); Sodium Level 136 mmol/L (136-145)
[2022-11-30 17:32] LABS: Urea Nitrogen, Urine 373 mg/dL (NO RANGE EST.); Urine Chloride 92 mmol/L (Not Establ.); Urine Sodium 34 mmol/L (Not Establ.)
[2022-11-30 18:11] LABS: Osmolality, Urine 361 mOsm/KG
--- NOTE | 2022-11-30 21:15 | CPS ---
patient unable to perform PEP therapy at this time 204911/30/22
[2022-11-30] MEDS: Atorvastatin Calcium 40 MG Tablet PO (22:03)
[2022-12-01] VITALS (10 sets, daily range): BP systolic 95–137; BP diastolic 50–58; PULSE 61–66; RESP 16–18; TEMP 36.5–37; O2SAT 92–95; BMI 25.7
[2022-12-01] MEDS: Levothyroxine 75 MCG Tablet PO (05:18)
[2022-12-01 06:13] LABS: Absolute Lymphocyte Count 0.22 X10^3/uL (0.83-4.51); Absolute Neutrophil Count 4.2 X10^3/uL (2.0-7.7); Basophil# 0.02 X10^3/uL; Basophil% 0.4 % (0-1); Eosinophil# 0.01 X10^3/uL; Eosinophils% 0.2 % (0-5); Hematocrit 25.2 % (40-54); Hemoglobin 8.4 g/dL (13.0-16.5); Lymphocyte # 0.22 X10^3/ul (0.83-4.51); Lymphocyte % 4.5 % (19-41); Mean Corp Hgb Conc 33.3 g/dL (32-36); Mean Corpuscular Hgb 35.1 pg (27.0-32.0); Mean Corpuscular Volume 105.4 fL (80-94); Mean Platelet Vol. 11.5 fl (6.2-12.0); Monocyte# 0.39 X10^3/uL; NRBC Flagged by Analyzer 0 % (0-5); Neutrophil # 4.15 X10^3/uL (2.7-7.7); Neutrophil % 85.5 % (47-70); POSITIVE COUNT YES; POSITIVE DIFFERENTIAL YES; POSITIVE MORPHOLOGY YES; Platelet Count 55 K/mm3 (150-450); RBC Distribution Width CV 15.6 % (11.6-14.6); RBC Distribution Width SD 60.7 fl (35.1-43.9); Red Blood Count 2.39 M/mm3 (4.6-6.2); White Blood Count 4.9 K/mm3 (4.4-11.0)
[2022-12-01 06:19] LABS: Differential Indicated SCAN CRITERIA MET
[2022-12-01 06:41] LABS: Anisocytosis 1+; Burr Cells 1+; Differential Comment SCANNED; Hypochromasia 1+; Macrocytosis 1+; Platelet Estimate MKD DEC (ADEQ)
[2022-12-01 06:44] LABS: ALB/GLOB Ratio 0.8 RATIO (0.9-2.4); AST(SGOT) 28 U/L (15-37); Alanine Aminotransfer ALT/SGPT 16 U/L (16-61); Albumin, Serum 2.2 g/dL (3.2-5.0); Alkaline Phosphatase 61 U/L (45-117); Anion Gap 8 (5-15); BUN 69 mg/dL (7-18); BUN/Creat Ratio 22.6 RATIO (10-20); Calcium,Total 8.4 mg/dL (8.5-10.1); Chloride 108 mmol/L (98-107); Creatinine, Serum 3.05 mg/dL (0.70-1.30); EST Glomerular Filtration Rate 21 mL/min (>60); Est Glom Filt Rate - Afr Amer 25 mL/min (>60); Estimated Creatinine Clearance 19.61 ml/min; Globulin 2.8 g/dL (2.2-4.2); Glucose 104 mg/dL (74-106); Potassium 3.9 mmol/L (3.5-5.1); Sodium Level 137 mmol/L (136-145)
--- NOTE | 2022-12-01 07:52 | PN.HOSP_ITS ---
Reason for Visit Reason for Visit: Diagnoses Other pancytopenia (11/29/22) Paroxysmal atrial fibrillation (11/29/22) Pneumonia, unspecified organism (11/29/22) Chronic kidney disease, stage 4 (severe) (11/29/22) Disorder of kidney and ureter, unspecified (11/29/22) Weakness (11/29/22) Other specified abnormalities of plasma proteins (11/29/22) Bacteremia (11/29/22) Subjective Subjective Is feeling much better than he had been, sitting up in bed eating. Feels no pain when lying or sitting in bed but does feel like his hip knee and ankle ache on the left side after his fall when he moves around Objective Data Objective Data Vital Signs: Vital Signs Temp Pulse Resp BP Pulse Ox O2 Del Method 97.9 F 63 16 110/50 L 93 Room Air 12/01/22 05:00 12/01/22 05:00 12/01/22 05:00 12/01/22 05:00 12/01/22 05:00 12/01/22 05:00 Oxygen Delivery Method Room Air Weight: 81.2 kg Body Mass Index (BMI) 25.7 Intake & Output: Intake and Output for Last 24 Hours 11/29/22 11/30/22 12/01/22 23:59 23:59 23:59 Intake Total 2682.5 / 2682.5 1455 / 1455 110 / 110 Output Total 150 / 150 1280 / 1280 900 / 900 Balance 2532.5 / 2532.5 175 / 175 -790 / -790 Lab / Micro Data Result Diagrams: 12/01/22 05:35 12/01/22 05:35 Labs: Laboratory Results - last 24 hr 11/30/22 14:33: Sodium 136, Potassium 4.4, Chloride 108 H, Carbon Dioxide 18.0 L , Anion Gap 10, BUN 62 H, Creatinine 3.08 H, Estim Creat Clear Calc 19.42, Est GFR (MDRD) Af Amer 25 L, Est GFR (MDRD) Non-Af 21 L, BUN/Creatinine Ratio 20.1 H , Glucose 139 H, Calcium 8.3 L 11/30/22 16:31: Urine Osmolality 361, Ur Random Sodium 34, Urine Creatinine 55.50, Urine Potassium 87.0, Urine Chloride 92, Urine Urea Nitrogen 373 12/01/22 05:35: WBC 4.9, RBC 2.39 L, Hgb 8.4 L, Hct 25.2 L, MCV 105.4 H, MCH 35.1 H, MCHC 33.3, RDW Std Deviation 60.7 H, RDW Coeff of Chanel 15.6 H, Plt Count 55 L, MPV 11.5, Immature Gran % (Auto) 1.400 H, Neut % (Auto) 85.5 H, Lymph % (Auto) 4.5 L, [place] % (Auto) 8.0, Eos % (Auto) 0.2, Baso % (Auto) 0.4, Absolute Neuts (auto) 4.2, Absolute Lymphs (auto) 0.22 L, Nucleated RBC % 0, Differential Comment SCANNED, Platelet Estimate MKD DEC, Hypochromasia 1+, Anisocytosis 1+, Macrocytosis 1+, [place] Cells 1+ 12/01/22 05:35: Sodium 137, Potassium 3.9, Chloride 108 H, Carbon Dioxide 21.0, Anion Gap 8, BUN 69 H, Creatinine 3.05 H, Estim Creat Clear Calc 19.61, Est GFR (MDRD) Af Amer 25 L, Est GFR (MDRD) Non-Af 21 L, BUN/Creatinine Ratio 22.6 H, Glucose 104, Calcium 8.4 L, Total Bilirubin 0.80, AST 28, ALT 16, Alkaline Phosphatase 61, Total Protein 5.0 L, Albumin 2.2 L, Globulin 2.8, Albumin/Globulin Ratio 0.8 L Micro: Microbiology 11/29/22 02:30 Blood Culture (Wb) - Anticubital Right Blood Culture - Final Klebsiella pneumoniae sp pneum 11/30/22 16:31 Urine, Random Legionella Antigen - Final 11/30/22 16:31 Urine, Random Streptococcus pneumoniae Antigen (M - Final 11/29/22 02:03 Blood Culture (Wb) - Anticubital Left Blood Culture - Preliminary GNR lactose computer education teacher 11/29/22 02:06 Nasal Secretion SARS-CoV-2 & FLU Antigen (Rapid) - Final Physical Exam Narrative General: Alert, no apparent distress HEENT: Atraumatic, normocephalic Eyes: Anicteric, normal conjunctiva, extraocular movements grossly intact Neck: Supple Respiratory: Normal respiratory effort, improving aeration Cardiovascular: Regular rate GI: Soft, nontender, nondistended Extremities: Trace edema left leg Musculoskeletal: Moving all extremities Neuro: No overt focal neurological deficits Skin: Left leg wrapped Psych: Cooperative Assessment & Plan Assessment/Plan (1) Acute renal insufficiency: (2) Pneumonia: (3) Chronic kidney disease (CKD): QUALIFIERS: Chronic kidney disease stage: stage 4 (severe) Qualified Code(s): N18.4 - Chronic kidney disease, stage 4 (severe) (4) Atrial fibrillation: QUALIFIERS: Atrial fibrillation type: paroxysmal Qualified Code(s): I48.0 - Paroxysmal atrial fibrillation (5) Bacteremia: PLAN: Plan #Fever/chills and gram-negative didi bacteremia -Tmax 101 while in the hospital -Pancytopenia with 20 bands -Checks x-ray in ED concerning for right lower lobe infiltrate -Blood cultures -Urine antigens -Rocephin and azithromycin initially started due to concern for community- acquired pneumonia however patient continued to be febrile so Rocephin was changed to Zosyn 1 2 out of 2 blood cultures growing gram-negative rods -Await cultures and speciation -11/30: Continue Zosyn, prelim blood cultures with gram-negative didi lactose computer education teacher's. Awaiting final cultures -12/01: First blood culture resulted with Klebsiella pneumonia with an intermediate sensitivity to Zosyn, will change to cefepime based on sensitivities #Elevated troponin -Suspect type II in setting of bacteremia and CKD -Troponin initially 134 and went to 139 down trended to 92 #Severe pulmonary hypertension/severe mitral annular calcification -Echocardiogram 11/29 obtained with moderate concentric left ventricular hypertr ophy with inability to assess diastolic dysfunction, severe mitral annular calcification, moderate tricuspid valve insufficiency, EF of 60% with left and right atrium is enlarged and severe pulmonary hypertension -Last echocardiogram 09/26/2020 with segmental dysfunction, EF 65% with bilateral atrial enlargement and moderate to severe mitral annular calcification with mild to moderate tricuspid insufficiency and RVSP estimated to be 34 inability to assess diastolic dysfunction -Not acutely in respiratory distress, will need to monitor BP and respiratory status closely.? Follows with cardiology on an outpatient basis, may need to be considered for surgical eval once medically stable -11/30: BNP 1355, had a previous of 528. Chest x-ray appears to possibly have slight right-sided effusion, given one-time dose of Bumex with O2 sat 92% on room air -12/01: Receiving IV Bumex daily given Lasix intolerance, continue monitor daily weights and I's and O's. #MYRON on CKD stage IIIb -Appears slightly up overall however most recent value in July was 2.44 with admission being 2.67 with variable readings prior to that, down trended slightly today -11/30: Creatinine worsened again to 2.93 with a BUN of 57 with a slight increase in potassium and chloride, could potentially be cardiorenal. Giving dose of Bumex and repeat BMP this afternoon. Can consider nephrology consult if not improving -12/01: Creatinine up trended to 3.08 despite diuresis, continuing Bumex, creatinine roughly the same today at 3.05 and BUN increasing. Nephrology consulted #Pancytopenia -Chronic but appears to be worse -Worsening likely secondary to underlying infection -Has followed with Dr. Mcintyre in the past -Iron panel consistent with anemia of chronic disease -Liver panel fairly benign -11/30: Still suspect in part this is due to to infection though if no improvement may need further work-up or bone marrow biopsy as an outpatient if not already done -12/01: White blood cell count improving, hemoglobin stable, platelet count slightly improved today #Hypothyroidism -TSH 0.75 -Continue Synthroid #History of ulcerative colitis -Continue Colazal #hx CAD status post CABG and stenting -CABG x2- ZARAGOZA to LAD, Aorto post descending coronary artery to revers SVG 02/12/17; atherectomy to ostial RCA, LINDY to Prox/Mid RCA 04/2009 -Aspirin held due to thrombocytopenia, carvedilol and atorvastatin continued #A-fib -Continue amiodarone and will decrease carvedilol due to soft pressures, not on AC due to history of GI bleed -11/30: Though amiodarone was still 200 mg on his home med list cardiology note recently reported he was to decrease to 100 mg, will reflect this change while inpatient #Alcohol use history -EtOH negative -We will give B12, thiamine, folate supplementation #Falls -Treat present illness -PT/OT #Hx empyema with VATS -In August 2020 at [facility] after CT surgery evaluation -Had resultant pneumothorax at that time #DVT ppx: SCDs ordered given thrombocytopenia Sammie Castaneda MD Charges/Coding Visit Charges Inpatient E&M: 11811 Subs Hosp L2
[2022-12-01] MEDS: Cyanocobalamin 500 MCG Tablet 1000 MCG PO (09:20)
[2022-12-01] MEDS: Thiamine Hydrochloride 100 MG Tablet PO (09:20)
[2022-12-01] MEDS: Ferrous Sulfate 325 MG Tablet PO (09:20)
[2022-12-01] MEDS: Amiodarone 200 MG Tablet 100 MG PO (09:21)
[2022-12-01] MEDS: Bumetanide 1 MG/4 ML Vial IV (09:22)
[2022-12-01] MEDS: 0.9% Saline Lock 10 ML Syringe IV (09:24)
--- NOTE | 2022-12-01 09:57 | CON.PCM.RE_ITS ---
Assessment & Plan Assessment/Plan (1) Acute renal insufficiency: PLAN: Acute on chronic renal insufficiency. Baseline creatinine seems to be around 2.0. Slowly worsening since admission, now up to 3. Urine analysis does show proteinuria. No hematuria. I will send urine for quantification. Previous renal Dopplers were negative for stenosis, renal ultrasound ordered. postvoid bladder scan was negative yesterday. Medication list reviewed. History of anemia. Due to iron deficiency. Saw Dr. Mcintyre. Now he has worsening thrombocytopenia along with anemia. I will send a LDH and haptoglobin, CPK level Thrombocytopenia. Usually sees hematology. HPI Consult Data Date of Consult: 12/01/22 HPI Narrative Reason for Consultation: Acute on chronic renal failure HPI Narrative: EULOGIO NOGUERA, is a 82 M who presents to the hospital after a mechanical fall. Nephrology consultation requested due to progressive renal failure. It seems she does have history of at least CKD stage IIIb. His creatinine was around 1.5 about 2 years ago, most of last year his creatinine is around 2.0. Recently creatinine has increased to 2.5-3.0. History of coronary artery disease, status post PCI, atrial fibrillation, pulmonary hypertension presumably secondary History of atherosclerotic aortic bypass surgery. He does follow with Dr. 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 Renal Dopplers in the past did not show any renal artery stenosis. Denies taking NSAIDs. As per staff, postvoid bladder scan was negative yesterday. Patient himself denies any urine related problems. [facility] Medical History Alcohol use Ambulates with cane Atherosclerotic heart disease of [place] coronary artery without angina pectoris Atrial fibrillation Atrial fibrillation and flutter Cardiology follow-up encounter Carotid artery stenosis Dietary restriction Emphysema of lung Essential hypertension Former smoker Hematemesis/vomiting blood High cholesterol History of atrial fibrillation History of cardioversion (~05/09/20) History of coronary artery disease History of echocardiogram History of GI bleed History of right inguinal hernia History of stress test History of transesophageal echocardiography (ROSI) History of umbilical hernia Hx of ulcerative colitis Hypercholesterolemia Hyperlipidemia Hypertension Injury of head and neck 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 coordinator (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) use 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 Mitral valve insufficiency PAD (peripheral artery disease) Premature atrial contractions Right carotid bruit Shortness of breath on exertion Subclavian artery stenosis, left (~10/15/19) Thrombocytopenia Thrombocytopenia Thyroid disease Ulcerative colitis Ulcerative colitis Upper GI bleed Upper GI bleed Walker as ambulation aid Wears glasses Wears hearing aid Home Medications ferrous sulfate 325 mg (65 mg iron) tablet 325 mg PO DAILY vitamin 05/28/15 [History Last Taken 05/09/20] zinc gluconate 50 mg tablet 50 mg PO DAILY supplement 05/28/15 [History Last Taken 05/09/20] vitamin B complex 1 each PO DAILY vitamin 02/07/16 [History Last Taken 05/09/20] aspirin 81 mg tablet,delayed release 81 mg PO DAILY@0800 heart health 08/29/16 [History Last Taken 04/23/21] levothyroxine 50 mcg tablet 75 mcg PO DAILY thyroid 06/13/20 [History Last Taken Unknown] balsalazide 750 mg capsule (Colazal) 2,250 mg PO BID Check with primary doctor 05/16/21 [History Last Taken Unknown] atorvastatin 40 mg tablet (Lipitor) 40 mg PO DAILY #90 tabs 03/13/22 [Rx Last Taken Unknown] chlorthalidone 25 mg tablet 25 mg PO DAILY #90 tabs 05/21/22 [Rx Last Taken Unknown] amiodarone 200 mg tablet 200 mg PO DAILY Afib/Flutter #90 tabs 05/27/22 [Rx Last Taken Unknown] amlodipine 10 mg tablet 10 mg PO DAILY #90 tabs 06/20/22 [Rx Last Taken Unknown] carvedilol 6.25 mg tablet (Coreg) 6.25 mg PO BID #180 tabs 10/17/22 [Rx Last Ta zaki Unknown] lisinopril 20 mg tablet 20 mg PO BID #180 tabs 11/26/22 [Rx Last Taken Unknown] hydralazine 50 mg tablet 50 mg PO BID 11/29/22 [History Last Taken Unknown] Allergy/AdvReac Type Severity Reaction Status Date / Time hydrochlorothiazide Allergy Severe Rash Verified 11/29/22 01:38 furosemide [From Lasix] Allergy Severe Verified 11/29/22 01:38 Rash Itchy lovastatin [From Mevacor] Allergy Rash Verified 11/29/22 01:38 amlodipine AdvReac Swelling Verified 11/29/22 01:38 Family History Father CAD (coronary artery disease) Mother Cancer breast Surgical History Aortocoronary bypass status (~02/12/17) History of cardiac catheterization History of hand surgery History of right inguinal hernia repair History of umbilical hernia repair History of vasectomy Hx of CABG Hx of colonoscopy Hx of esophagogastroduodenoscopy Hx of heart bypass surgery S/P right inguinal hernia repair S/P umbilical hernia repair, follow-up exam Status post insertion of drug-eluting stent into right coronary artery for coronary artery disease (~04/2009) Social History adopted: No household members: spouse housing: house number of children: 2 current occupational status: retired Smoking Status: Former smoker Tobacco: How many years used: 50 (stopped about 10 yrs ago) how long ago did patient quit smokin years ago alcohol intake: current alcohol intake frequency: 3 or more drinks per day Alcohol type: beer, wine and hard liquor substance use type: does not use caffeine: Yes Type: coffee Number of servings: 2 ROS ROS Narrative Negative except above Physical Exam Narrative Alert awake oriented x 3 no obvious distress no pallor no icterus no JVD s1s2 no murmurs lungs clear abdomen soft no organomegaly no edema no cyanosis Lab / Micro Data Result Diagrams: 12/01/22 05:35 12/01/22 05:35 Labs: Laboratory Results - last 24 hr 11/30/22 14:33: Sodium 136, Potassium 4.4, Chloride 108 H, Carbon Dioxide 18.0 L , Anion Gap 10, BUN 62 H, Creatinine 3.08 H, Estim Creat Clear Calc 19.42, Est GFR (MDRD) Af Amer 25 L, Est GFR (MDRD) Non-Af 21 L, BUN/Creatinine Ratio 20.1 H , Glucose 139 H, Calcium 8.3 L 11/30/22 16:31: Urine Osmolality 361, Ur Random Sodium 34, Urine Creatinine 55.50, Urine Potassium 87.0, Urine Chloride 92, Urine Urea Nitrogen 373 12/01/22 05:35: WBC 4.9, RBC 2.39 L, Hgb 8.4 L, Hct 25.2 L, MCV 105.4 H, MCH 35.1 H, MCHC 33.3, RDW Std Deviation 60.7 H, RDW Coeff of Chanel 15.6 H, Plt Count 55 L, MPV 11.5, Immature Gran % (Auto) 1.400 H, Neut % (Auto) 85.5 H, Lymph % (Auto) 4.5 L, Milam % (Auto) 8.0, Eos % (Auto) 0.2, Baso % (Auto) 0.4, Absolute Neuts (auto) 4.2, Absolute Lymphs (auto) 0.22 L, Nucleated RBC % 0, Differential Comment SCANNED, Platelet Estimate MKD DEC, Hypochromasia 1+, Anisocytosis 1+, Macrocytosis 1+, Anil Cells 1+ 12/01/22 05:35: Sodium 137, Potassium 3.9, Chloride 108 H, Carbon Dioxide 21.0, Anion Gap 8, BUN 69 H, Creatinine 3.05 H, Estim Creat Clear Calc 19.61, Est GFR (MDRD) Af Amer 25 L, Est GFR (MDRD) Non-Af 21 L, BUN/Creatinine Ratio 22.6 H, Glucose 104, Calcium 8.4 L, Total Bilirubin 0.80, AST 28, ALT 16, Alkaline Phosphatase 61, Total Protein 5.0 L, Albumin 2.2 L, Globulin 2.8, Albumin/Globulin Ratio 0.8 L Micro: Microbiology 11/29/22 02:30 Blood Culture (Wb) - Anticubital Right Blood Culture - Final Klebsiella pneumoniae sp pneum 11/30/22 16:31 Urine, Random Legionella Antigen - Final 11/30/22 16:31 Urine, Random Streptococcus pneumoniae Antigen (M - Final 11/29/22 02:03 Blood Culture (Wb) - Anticubital Left Blood Culture - Preliminary GNR lactose asthma educator
[2022-12-01 13:59] LABS: Protein, Urine (Random) 24.2 mg/dL (<11.9); Protein:Creat Ratio 492 mg/g CRE (0-200)
[2022-12-01] MEDS: BALSALAZIDE DISODIUM 750 MG CAPSULE 2250 MG PO (21:35)
[2022-12-01] MEDS: Carvedilol 3.125 MG TABLET PO (21:36)
[2022-12-01] MEDS: Atorvastatin Calcium 40 MG Tablet PO (21:37)
[2022-12-02] VITALS (10 sets, daily range): BP systolic 114–145; BP diastolic 47–68; PULSE 67–82; RESP 15–18; TEMP 36.4–36.8; O2SAT 92–95; BMI 25.4
[2022-12-02] MEDS: Levothyroxine 75 MCG Tablet PO (06:14)
--- NOTE | 2022-12-02 07:44 | PN.HOSP_ITS ---
Reason for Visit Reason for Visit: Diagnoses Other pancytopenia (11/29/22) Paroxysmal atrial fibrillation (11/29/22) Pneumonia, unspecified organism (11/29/22) Chronic kidney disease, stage 4 (severe) (11/29/22) Disorder of kidney and ureter, unspecified (11/29/22) Weakness (11/29/22) Other specified abnormalities of plasma proteins (11/29/22) Bacteremia (11/29/22) Subjective Subjective Reports his leg pain on the left side is improving, feels he is wheezing slightly but does not feel overtly short of breath Objective Data Objective Data Vital Signs: Vital Signs Temp Pulse Resp BP Pulse Ox O2 Del Method 97.8 F 71 18 145/57 H 92 Room Air 12/02/22 04:01 12/02/22 04:01 12/02/22 04:01 12/02/22 04:01 12/02/22 04:01 12/02/22 04:01 Oxygen Delivery Method Room Air Weight: 80.3 kg Body Mass Index (BMI) 25.4 Intake & Output: Intake and Output for Last 24 Hours 11/30/22 12/01/22 12/02/22 23:59 23:59 23:59 Intake Total 1455 / 1455 1396.25 / 1396.25 100 / 100 Output Total 1280 / 1280 1000 / 1000 800 / 800 Balance 175 / 175 396.25 / 396.25 -700 / -700 Lab / Micro Data Result Diagrams: 12/01/22 05:35 12/02/22 06:25 Labs: Laboratory Results - last 24 hr 12/01/22 13:20: U Random Total Protein 24.2 H, Urine Creatinine 49.20, Protein/Creatinin Ratio 492 H Micro: Microbiology 11/29/22 02:30 Blood Culture (Wb) - Anticubital Right Blood Culture - Final Klebsiella pneumoniae sp pneum 11/30/22 16:31 Urine, Random Legionella Antigen - Final 11/30/22 16:31 Urine, Random Streptococcus pneumoniae Antigen (M - Final 11/29/22 02:03 Blood Culture (Wb) - Anticubital Left Blood Culture - Prel iminary GNR lactose molder inflated ball 11/29/22 02:06 Nasal Secretion SARS-CoV-2 & FLU Antigen (Rapid) - Final Physical Exam Narrative General: Alert, no apparent distress HEENT: Atraumatic, normocephalic Eyes: Anicteric, normal conjunctiva, extraocular movements grossly intact Neck: Supple Respiratory: Normal respiratory effort when sitting still, slight increased work of breathing when moving, does have some scattered wheezes today Cardiovascular: Regular rate GI: Soft, nontender, nondistended Extremities: Trace edema in lower extremities Musculoskeletal: Moving all extremities Neuro: No overt focal neurological deficits Skin: Left leg with superficial scrapes noted and slight puffiness on dorsum of left foot, bleeds easily Psych: Cooperative Assessment & Plan Assessment/Plan (1) Acute renal insufficiency: (2) Pneumonia: (3) Chronic kidney disease (CKD): QUALIFIERS: Chronic kidney disease stage: stage 4 (severe) Qualified Code(s): N18.4 - Chronic kidney disease, stage 4 (severe) (4) Atrial fibrillation: QUALIFIERS: Atrial fibrillation type: paroxysmal Qualified Code(s): I48.0 - Paroxysmal atrial fibrillation (5) Bacteremia: PLAN: Plan #MYRON on CKD stage IIIb -Appears slightly up overall however most recent value in July was 2.44 with admission being 2.67 with variable readings prior to that, down trended slightly today -11/30: Creatinine worsened again to 2.93 with a BUN of 57 with a slight increase in potassium and chloride, could potentially be cardiorenal. Giving dose of Bumex and repeat BMP this afternoon. Can consider nephrology consult if not improving -12/01: Creatinine up trended to 3.08 despite diuresis, continuing Bumex, creatinine roughly the same today at 3.05 and BUN increasing. Nephrology consulted -12/02: Creatinine continues to increase, does have protein in urine. Previous renal Dopplers negative for stenosis, negative post void, renal ultrasound pending. Holding IV Bumex. Nephrology following. Continue to hold lisinopril and hydrochlorothiazide #Fever/chills and gram-negative didi bacteremia -Tmax 101 while in the hospital -Pancytopenia with 20 bands -Checks x-ray in ED concerning for right lower lobe infiltrate -Blood cultures -Urine antigens -Rocephin and azithromycin initially started due to concern for community- acquired pneumonia however patient continued to be febrile so Rocephin was changed to Zosyn 1 2 out of 2 blood cultures growing gram-negative rods -Await cultures and speciation -11/30: Continue Zosyn, prelim blood cultures with gram-negative didi lactose molder inflated ball's. Awaiting final cultures -12/01: First blood culture resulted with Klebsiella pneumonia with an intermediate sensitivity to Zosyn, will change to cefepime based on sensitiv ities -12/02: Continues to improve on cefepime #Elevated troponin -Suspect type II in setting of bacteremia and CKD -Troponin initially 134 and went to 139 down trended to 92 #Severe pulmonary hypertension/severe mitral annular calcification -Echocardiogram 11/29 obtained with moderate concentric left ventricular hypertrophy with inability to assess diastolic dysfunction, severe mitral annular calcification, moderate tricuspid valve insufficiency, EF of 60% with left and right atrium is enlarged and severe pulmonary hypertension -Last echocardiogram 09/26/2020 with segmental dysfunction, EF 65% with bilateral atrial enlargement and moderate to severe mitral annular calcification with mild to moderate tricuspid insufficiency and RVSP estimated to be 34 inability to assess diastolic dysfunction -Not acutely in respiratory distress, will need to monitor BP and respiratory status closely.? Follows with cardiology on an outpatient basis, may need to be considered for surgical eval once medically stable -11/30: BNP 1355, had a previous of 528. Chest x-ray appears to possibly have slight right-sided effusion, given one-time dose of Bumex with O2 sat 92% on room air -12/01: Receiving IV Bumex daily given Lasix intolerance, continue monitor daily weights and I's and O's. -12/02: IV Bumex held due to worsening creatinine, did have some wheezing today we will give trial of nebs #Pancytopenia -Chronic but appears to be worse -Worsening likely secondary to underlying infection -Has followed with Dr. Mcintyre in the past -Iron panel consistent with anemia of chronic disease -Liver panel fairly benign -11/30: Still suspect in part this is due to to infection though if no improvement may need further work-up or bone marrow biopsy as an outpatient if not already done -12/01: White blood cell count improving, hemoglobin stable, platelet count slightly improved today #Hypothyroidism -TSH 0.75 -Continue Synthroid #History of ulcerative colitis -Continue Colazal #hx CAD status post CABG and stenting -CABG x2- ZARAGOZA to LAD, Aorto post descending coronary artery to revers SVG 02/12/17; atherectomy to ostial RCA, LINDY to Prox/Mid RCA 04/2009 -Aspirin held due to thrombocytopenia, carvedilol and atorvastatin continued #A-fib -Continue amiodarone and will decrease carvedilol due to soft pressures, not on AC due to history of GI bleed -11/30: Though amiodarone was still 200 mg on his home med list cardiology note recently reported he was to decrease to 100 mg, will reflect this change while inpatient #Alcohol use history -EtOH negative -We will give B12, thiamine, folate supplementation #Falls -Treat present illness -PT/OT #Hx empyema with VATS -In August 2020 at [facility] after CT surgery evaluation -Had resultant pneumothorax at that time #DVT ppx: SCDs ordered given thrombocytopenia Sammie Castaneda MD Charges/Coding Visit Charges Inpatient E&M: 05310 Subs Hosp L2
[2022-12-02 08:28] LABS: ALB/GLOB Ratio 0.7 RATIO (0.9-2.4); AST(SGOT) 68 U/L (15-37); Alanine Aminotransfer ALT/SGPT 39 U/L (16-61); Albumin, Serum 2.1 g/dL (3.2-5.0); Alkaline Phosphatase 101 U/L (45-117); Anion Gap 9 (5-15); BUN 73 mg/dL (7-18); BUN/Creat Ratio 23.4 RATIO (10-20); Calcium,Total 8.3 mg/dL (8.5-10.1); Chloride 110 mmol/L (98-107); Creatinine, Serum 3.12 mg/dL (0.70-1.30); EST Glomerular Filtration Rate 21 mL/min (>60); Est Glom Filt Rate - Afr Amer 25 mL/min (>60); Estimated Creatinine Clearance 19.17 ml/min; Globulin 3.1 g/dL (2.2-4.2); Glucose 112 mg/dL (74-106); LDH 104 U/L (87-241); Potassium 3.3 mmol/L (3.5-5.1); Protein, Total 5.2 g/dL (6.4-8.2); Sodium Level 139 mmol/L (136-145)
[2022-12-02 08:39] LABS: CPK Total, Creatine Kinase 32 U/L (39-308)
--- NOTE | 2022-12-02 09:55 | US_ITS ---
STUDY: RENAL ULTRASOUND - COMPLETE REASON FOR EXAM: Male, 82 years old. MYRON TECHNIQUE: Ultrasound evaluation of the kidneys was performed with real-time and static fenton-scale imaging. COMPARISON: None. FINDINGS: RIGHT KIDNEY: Normal location of the right kidney, which is normal in size. The right kidney measures 11.8 cm x 4.6 cm x 4.7 cm. There is a normal cortex of the right kidney. The renal cortex measures 1.5 cm. Multiple cysts are seen. The largest cyst measures 4.8 cm x 4.1 cm x 3.7 cm. There are no right renal calculi. There is no right hydronephrosis. DISTAL RIGHT URETER: There is non-visualization of the distal right ureter. There is no demonstrated right ureterovesical junction calculus. There is no demonstrated right ureteral jet. LEFT KIDNEY: Normal location of the left kidney, which is normal in size. The left kidney measures 13.3 cm x 5.3 cm x 6.4 cm. There is a normal cortex of the left kidney. The renal cortex measures 2.2 cm. Multiple cysts are seen. The largest measures 2 cm x 2.6 cm x 1.8 cm. There are no left renal calculi. There is no left hydronephrosis. DISTAL LEFT URETER: There is non-visualization of the distal left ureter. There is no demonstrated left ureterovesical junction calculus. There is a visualized left ureteral jet. BLADDER: The distended urinary bladder has a volume of 176 ml. There is trabeculation of the bladder wall. There is a 1.6 cm x 1.5 cm x 1.4 cm right bladder diverticulum. There is no demonstrated mass within the urinary bladder. There are no demonstrated bladder calculi. US/Kidney and Bladder IMPRESSION: Multiple bilateral renal cysts. 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 Electronically Signed: Apolinar Rosen MD at 12:47 EDT ,
[2022-12-02] MEDS: Folic Acid 1 MG Tablet 2 MG PO (10:16)
[2022-12-02] MEDS: Carvedilol 3.125 MG TABLET PO ×2 (10:16→20:58)
[2022-12-02] MEDS: Thiamine Hydrochloride 100 MG Tablet PO (10:16)
[2022-12-02] MEDS: Amiodarone 200 MG Tablet 100 MG PO (10:16)
[2022-12-02] MEDS: BALSALAZIDE DISODIUM 750 MG CAPSULE 2250 MG PO ×2 (10:16→20:59)
[2022-12-02] MEDS: Ferrous Sulfate 325 MG Tablet PO (10:16)
[2022-12-02] MEDS: Cyanocobalamin 500 MCG Tablet 1000 MCG PO (10:16)
[2022-12-02] MEDS: 0.9% Saline Lock 10 ML Syringe IV (10:18)
--- NOTE | 2022-12-02 11:29 | PCM.PN.REN ---
Subjective Subjective Resting in bed. Reports has been having loose stools. States has good appetite. Denies any nausea or vomiting. No overnight events. Objective Data Objective Data Vital Signs: Vital Signs Temp Pulse Resp BP Pulse Ox O2 Del Method 97.9 F 68 18 114/51 L 94 Room Air 12/02/22 10:10 12/02/22 10:10 12/02/22 10:10 12/02/22 10:10 12/02/22 10:10 12/02/22 10:10 Oxygen Delivery Method Room Air Weight: 80.3 kg Body Mass Index (BMI) 25.4 Intake & Output: Intake and Output for Last 24 Hours 11/30/22 12/01/22 12/02/22 23:59 23:59 23:59 Intake Total 1455 / 1455 1396.25 / 1396.25 200 / 200 Output Total 1280 / 1280 1000 / 1000 800 / 800 Balance 175 / 175 396.25 / 396.25 -600 / -600 Lab / Micro Data Result Diagrams: 12/01/22 05:35 12/02/22 06:25 Labs: Laboratory Results - last 24 hr 12/01/22 13:20: U Random Total Protein 24.2 H, Urine Creatinine 49.20, Protein/Creatinin Ratio 492 H 12/02/22 06:25: Sodium 139, Potassium 3.3 L, Chloride 110 H, Carbon Dioxide 20.0 L, Anion Gap 9, BUN 73 H, Creatinine 3.12 H, Estim Creat Clear Calc 19.17, Est GFR (MDRD) Af Amer 25 L, Est GFR (MDRD) Non-Af 21 L, BUN/Creatinine Ratio 23.4 H, Glucose 112 H, Calcium 8.3 L, Total Bilirubin 0.70, AST 68 H, ALT 39, Alkaline Phosphatase 101, Lactate Dehydrogenase 104, Total Protein 5.2 L, Albumin 2.1 L, Globulin 3.1, Albumin/Globulin Ratio 0.7 L 12/02/22 06:25: Total Creatine Kinase 32 L Micro: Microbiology 11/29/22 02:30 Blood Culture (Wb) - Anticubital Right Blood Culture - Final Klebsiella pneumoniae sp pneum 11/30/22 16:31 Urine, Random Legionella Antigen - Final 11/30/22 16:31 Urine, Random Streptococcus pneumoniae Antigen (M - Final 11/29/22 02:03 Blood Culture (Wb) - Anticubital Left Blood Culture - Preliminary GNR lactose dry transfer worker 11/29/22 02:06 Nasal Secretion SARS-CoV-2 & FLU Antigen (Rapid) - Final Physical Exam Narrative Alert awake oriented x 3, no obvious distress s1s2 no murmurs lungs clear abdomen soft no pitting edema Assessment & Plan Assessment/Plan (1) Acute renal insufficiency: PLAN: Acute on chronic renal insufficiency. Baseline creatinine seems to be around 2.0-2.4mg/dL. Serum creatinine was 2.44 mg/dL in July 2022. Creatinine 2.53 on admission, slowly worsening since admission, now up to 3.12mg/dL. 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 Continue to monitor renal function closely. Labs ordered for morning. Blood pressures acceptable on carvedilol. Patient on room air. Potassium 3.3, replacement ordered for today. Urine analysis does show proteinuria. No hematuria. Urine protein creatinine ratio 492 mg/g. Previous renal Dopplers were negative for stenosis, renal ultrasound ordered, report pending. Postvoid bladder scan was negative. Home medications on hold: Lisinopril and chlorthalidone Was receiving IV Bumex, currently on hold due to worsening renal function. 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 Due to iron deficiency. Saw Dr. Mcintyre. Now he has worsening thrombocytopenia along with anemia. Haptoglobin pending. Normal LDH and CPK level Thrombocytopenia. Follows with hematology.
--- NOTE | 2022-12-02 11:30 | WOUNDNOTE ---
wound photo: left lower leg/foot
--- NOTE | 2022-12-02 11:30 | WOUNDNOTE ---
wound photo: right forearm
[2022-12-02 12:20] LABS: Absolute Lymphocyte Count 0.16 X10^3/uL (0.83-4.51); Absolute Neutrophil Count 5.1 X10^3/uL (2.0-7.7); Basophil# 0.01 X10^3/uL; Basophil% 0.2 % (0-1); Eosinophil# 0.02 X10^3/uL; Eosinophils% 0.3 % (0-5); Hematocrit 24.8 % (40-54); Hemoglobin 8.2 g/dL (13.0-16.5); Lymphocyte # 0.16 X10^3/ul (0.83-4.51); Lymphocyte % 2.8 % (19-41); Mean Corp Hgb Conc 33.1 g/dL (32-36); Mean Corpuscular Hgb 34.5 pg (27.0-32.0); Mean Corpuscular Volume 104.2 fL (80-94); Mean Platelet Vol. 11.6 fl (6.2-12.0); Monocyte# 0.39 X10^3/uL; Monocyte% 6.8 % (0-10); NRBC Flagged by Analyzer 0 % (0-5); Neutrophil # 5.08 X10^3/uL (2.7-7.7); Neutrophil % 88.9 % (47-70); POSITIVE COUNT YES; POSITIVE DIFFERENTIAL YES; POSITIVE MORPHOLOGY YES; Platelet Count 61 K/mm3 (150-450); RBC Distribution Width CV 15.5 % (11.6-14.6); RBC Distribution Width SD 59.2 fl (35.1-43.9); Red Blood Count 2.38 M/mm3 (4.6-6.2); White Blood Count 5.7 K/mm3 (4.4-11.0)
[2022-12-02 12:25] LABS: Differential Indicated SCAN CRITERIA MET
[2022-12-02 12:44] LABS: Platelet Estimate MOD DEC (ADEQ)
[2022-12-02] MEDS: 0.9% Normal Saline 1,000 ML 75 ML IV (13:12)
[2022-12-02] MEDS: Potassium Chloride Oral Tablet 20 MEQ 40 MEQ PO (13:12)
[2022-12-02 13:28] LABS: Pathologist Review Reviewed
--- NOTE | 2022-12-02 15:12 | CHAPLAIN ---
Type of Pastoral Visit _x__ Initial Visit ___ Follow-up Visit ___ On-call Visit ___ General Patient Visit ___ Spiritual Assessment ___ Family Conference ___ Bereavement ___ Rapid Response ___ Code Blue ___ Other (describe below) Pastoral Care Referral From _x__ Patient ___ Family ___ Nurse ___ Physician ___ Glass Block Installer ___ Apn ___ Other (describe below) Sacrament/Intervention _x__ Active listening ___ Anointing ___ Sabianist ___ Bereavement ___ Communion ___ Alicja exploration ___ _x__ Life review ___ Prayer ___ Reconciliation ___ Sacrament of Sick _x__ Supportive presence ___ Wedding ___ Other (describe below) Pastoral Comments patient was sleeping but awoke easily to his name; pt speaks clearly and of his needs; pt is more concerned about his who is to enter [facility] facility this [facility] for permanent placement; pt answers questions and talks briefly but does not indicate or admit to any needs
[2022-12-02] MEDS: Atorvastatin Calcium 40 MG Tablet PO (20:58)
[2022-12-02] MEDS: Acetaminophen 325 MG Tablet 650 MG PO (21:08)
[2022-12-03] VITALS (7 sets, daily range): BP systolic 116–142; BP diastolic 51–68; PULSE 58–72; RESP 15–16; TEMP 36.7–37.2; O2SAT 95–97; BMI 25.4
[2022-12-03 04:07] LABS: Haptoglobin 307 mg/dL (38-329)
[2022-12-03] MEDS: Levothyroxine 75 MCG Tablet PO (05:34)
[2022-12-03 06:52] LABS: Absolute Lymphocyte Count 0.42 X10^3/uL (0.83-4.51); Absolute Neutrophil Count 4.2 X10^3/uL (2.0-7.7); Basophil# 0.01 X10^3/uL; Basophil% 0.2 % (0-1); Eosinophil# 0.04 X10^3/uL; Eosinophils% 0.7 % (0-5); Hematocrit 26.2 % (40-54); Hemoglobin 8.7 g/dL (13.0-16.5); Lymphocyte # 0.42 X10^3/ul (0.83-4.51); Lymphocyte % 7.7 % (19-41); Mean Corp Hgb Conc 33.2 g/dL (32-36); Mean Corpuscular Hgb 34.8 pg (27.0-32.0); Mean Corpuscular Volume 104.8 fL (80-94); Mean Platelet Vol. 11.9 fl (6.2-12.0); Monocyte# 0.65 X10^3/uL; NRBC Flagged by Analyzer 0 % (0-5); Neutrophil # 4.23 X10^3/uL (2.7-7.7); Neutrophil % 78.1 % (47-70); POSITIVE COUNT YES; POSITIVE DIFFERENTIAL YES; POSITIVE MORPHOLOGY YES; Platelet Count 63 K/mm3 (150-450); RBC Distribution Width CV 15.5 % (11.6-14.6); White Blood Count 5.4 K/mm3 (4.4-11.0)
[2022-12-03 07:07] LABS: Differential Indicated SCAN CRITERIA MET
[2022-12-03 07:23] LABS: ALB/GLOB Ratio 0.7 RATIO (0.9-2.4); AST(SGOT) 161 U/L (15-37); Alanine Aminotransfer ALT/SGPT 94 U/L (16-61); Alkaline Phosphatase 163 U/L (45-117); Anion Gap 5 (5-15); BUN 68 mg/dL (7-18); BUN/Creat Ratio 24.8 RATIO (10-20); Calcium,Total 8.2 mg/dL (8.5-10.1); Chloride 112 mmol/L (98-107); Creatinine, Serum 2.74 mg/dL (0.70-1.30); EST Glomerular Filtration Rate 24 mL/min (>60); Est Glom Filt Rate - Afr Amer 29 mL/min (>60); Estimated Creatinine Clearance 21.83 ml/min; Globulin 2.9 g/dL (2.2-4.2); Glucose 121 mg/dL (74-106); Potassium 3.4 mmol/L (3.5-5.1); Protein, Total 4.9 g/dL (6.4-8.2); Sodium Level 138 mmol/L (136-145)
[2022-12-03 07:52] LABS: Differential Comment SCANNED; Platelet Estimate MKD DEC (ADEQ)
[2022-12-03] MEDS: Ferrous Sulfate 325 MG Tablet PO (07:57)
[2022-12-03] MEDS: Folic Acid 1 MG Tablet 2 MG PO (07:57)
[2022-12-03] MEDS: Cyanocobalamin 500 MCG Tablet 1000 MCG PO (07:57)
[2022-12-03] MEDS: 0.9% Saline Lock 10 ML Syringe IV ×2 (07:57→10:02)
[2022-12-03] MEDS: Thiamine Hydrochloride 100 MG Tablet PO (07:57)
[2022-12-03] MEDS: BALSALAZIDE DISODIUM 750 MG CAPSULE 2250 MG PO (07:57)
[2022-12-03] MEDS: Amiodarone 200 MG Tablet 100 MG PO (07:57)
--- NOTE | 2022-12-03 09:01 | CASEMGMT ---
Late entry: Per patient request, nancy made referral to TCU. Nancy provided patient information to TCU admission coordinator, Mercedes Morris. Ms. Morris stated that patient admission is pending him agreeing to using all medications provided by TCU. TCU will not be able to administer home medications to patient. Sw presented to patient bedside on morning of 12/03 to inform patient of his acceptance to TCU pending him agreeing to be administered medications provided by TCU and not home meds. Patient stated that if his admission is dependnet upon that he is in agreement. Nancy notified Ms. Morris of above information Griffin Haynes, ENGINE LATHE TENDER, ELECTRONIC PLOTTING SYSTEM OPERATOR
[2022-12-03] MEDS: Potassium Chloride Oral Tablet 20 MEQ 40 MEQ PO (10:02)
--- NOTE | 2022-12-03 10:23 | PCM.PN.REN ---
Documented by User: TESSA Nava 12/03/22 10:32 Subjective Subjective Sitting up in bed. Denies any complaints today. Denies any loose bowel movements today. No overnight events. Objective Data Objective Data Vital Signs: Vital Signs Temp Pulse Resp BP Pulse Ox O2 Del Method 98.0 F 58 L 16 124/51 H 96 Room Air 12/03/22 10:00 12/03/22 10:00 12/03/22 10:00 12/03/22 10:00 12/03/22 10:00 12/03/22 10:00 Oxygen Delivery Method Room Air Weight: 80.4 kg Body Mass Index (BMI) 25.4 Intake & Output: Intake and Output for Last 24 Hours 12/01/22 12/02/22 12/03/22 23:59 23:59 23:59 Intake Total 1396.25 / 1396.25 1180 / 1180 640 / 640 Output Total 1000 / 1000 1600 / 1800 700 / 700 Balance 396.25 / 396.25 -420 / -620 -60 / -60 Lab / Micro Data Result Diagrams: 12/03/22 05:57 12/03/22 05:57 Labs: Laboratory Results - last 24 hr 11/30/22 06:10: Diff Path Review Reviewed 12/02/22 06:25: WBC 5.7, RBC 2.38 L, Hgb 8.2 L, Hct 24.8 L, MCV 104.2 H, MCH 34.5 H, MCHC 33.1, RDW Std Deviation 59.2 H, RDW Coeff of Chanel 15.5 H, Plt Count 61 L, MPV 11.6, Immature Gran % (Auto) 1.000 H, Neut % (Auto) 88.9 H, Lymph % (Auto) 2.8 L, [place] % (Auto) 6.8, Eos % (Auto) 0.3, Baso % (Auto) 0.2, Absolute Neuts (auto) 5.1, Absolute Lymphs (auto) 0.16 L, Nucleated RBC % 0, Differential Comment COMMENT, Platelet Estimate MOD 12/02/22 06:25: Haptoglobin 307 12/03/22 05:57: WBC 5.4, RBC 2.50 L, Hgb 8.7 L, Hct 26.2 L, MCV 104.8 H, MCH 34.8 H, MCHC 33.2, RDW Std Deviation 60.0 H, RDW Coeff of Chanel 15.5 H, Plt Count 63 L, MPV 11.9, Immature Gran % (Auto) 1.300 H, Neut % (Auto) 78.1 H, Lymph % (Auto) 7.7 L, [place] % (Auto) 12.0 H, Eos % (Auto) 0.7, Baso % (Auto) 0.2, Absolute Neuts (auto) 4.2, Absolute Lymphs (auto) 0.42 L, Nucleated RBC % 0, Differential Comment SCANNED, Platelet Estimate MKD 12/03/22 05:57: Sodium 138, Potassium 3.4 L, Chloride 112 H, Carbon Dioxide 21.0, Anion Gap 5, BUN 68 H, Creatinine 2.74 H, Estim Creat Clear Calc 21.83, Est GFR (MDRD) Af Amer 29 L, Est GFR (MDRD) Non-Af 24 L, BUN/Creatinine Ratio 24.8 H, Glucose 121 H, Calcium 8.2 L, Total Bilirubin 0.50, AST 161 H, ALT 94 H, Alkaline Phosphatase 163 H, Total Protein 4.9 L, Albumin 2.0 L, Globulin 2.9, Albumin/Globulin Ratio 0.7 L Micro: Microbiology 11/29/22 02:30 Blood Culture (Wb) - Anticubital Right Blood Culture - Final Klebsiella pneumoniae sp pneum 11/30/22 16:31 Urine, Random Legionella Antigen - Final 11/30/22 16:31 Urine, Random Streptococcus pneumoniae Antigen (M - Final 11/29/22 02:03 Blood Culture (Wb) - Anticubital Left Blood Culture - Preliminary GNR 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 Electronically Signed: Apolinar Rosen MD at 12:47 EDT , Physical Exam Narrative Alert awake oriented x 3, no obvious distress s1s2 no murmurs lungs clear abdomen soft, nontender no pitting edema. Wraps intact to legs Assessment & Plan Assessment/Plan (1) Acute renal insufficiency: PLAN: 82-year-old male with history of CKD, iron deficiency anemia, thrombocytopenia and ulcerative colitis admitted for pneumonia. Nephrology consulted for MYRON. Acute on chronic renal insufficiency. Baseline creatinine seems to be around 2.0-2.4mg/dL. Serum creatinine was 2.44 mg/dL in July 2022. Creatinine 2.53 on admission, peaked 3.12mg/dL yesterday and today serum creatinine 2.74. Patient received 1 L IV fluids yesterday. We will hold off on any further IV fluids for now. 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 Continue to monitor renal function closely. Potassium improved with replacement, today potassium 3.4 replacement ordered today. Urine analysis showed proteinuria. No hematuria. Urine protein creatinine ratio 492 mg/g. Previous renal Dopplers were negative for stenosis, renal ultrasound no hydro. Postvoid bladder scan was negative. Home medications on hold: Lisinopril and chlorthalidone Was receiving IV Bumex, currently on hold due to worsening renal function. Currently on RA. 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 Due to iron deficiency. Saw Dr. Mcintyre. Now he has worsening thrombocytopenia along with anemia. Normal LDH, haptoglobin and CPK level. Thrombocytopenia. Follows with hematology. History of ulcerative colitis on Colazal Documented by User: Dr. Kvng James MD 12/03/22 12:44 Objective Data Lab / Micro Data Result Diagrams: 12/03/22 05:57 12/03/22 05:57 Assessment & Plan Assessment/Plan (1) Acute renal insufficiency: PLAN: 82-year-old male with history of CKD, iron deficiency anemia, thrombocytopenia and ulcerative colitis admitted for pneumonia. Nephrology consulted for MYRON. Acute on chronic renal insufficiency. Baseline creatinine seems to be around 2.0-2.4mg/dL. Serum creatinine was 2.44 mg/dL in July 2022. Creatinine 2.53 on admission, peaked 3.12mg/dL yesterday and today serum creatinine 2.74. Patient received 1 L IV fluids yesterday. We will hold off on any further IV fluids for now. 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 Continue to monitor renal function closely. Potassium improved with replacement, today potassium 3.4 replacement ordered today. Urine analysis showed proteinuria. No hematuria. Urine protein creatinine ratio 492 mg/g. Previous renal Dopplers were negative for stenosis, renal ultrasound no hydro. Postvoid bladder scan was negative. Home medications on hold: Lisinopril and chlorthalidone Was receiving IV Bumex, currently on hold due to worsening renal function. Currently on RA. 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 Due to iron deficiency. Saw Dr. Mcintyre. Now he has worsening thrombocytopenia along with anemia. Normal LDH, haptoglobin and CPK level. Thrombocytopenia. Follows with hematology. History of ulcerative colitis on Colazal Seen and examined independently. Creatinine is better. Possible transfer to TCU today. We can follow him there if needed. Okay to transfer today. Discussed with hospitalist
[2022-12-03] MEDS: Acetaminophen 325 MG Tablet 650 MG PO (13:16)
--- NOTE | 2022-12-03 14:58 | TREXTCAR_ITS ---
Diet Diet Order/Speech Therapy: 11/29/22 05:23 Diet: Cardiac - Heart Healthy Food consistency:: Regular Liquid Consistency:: Regular/Thin Is pt able to select menu?: Yes Routine Orders/Code Status Suppository Type: Dulcolax 10mg Suppository Frequency: Daily PRN Routine Lab Work: CBC (3 days) and - (CMP 3 days) Code Status: DNRCC-A Wound(s) Left hodgson: Wound Type: scattered abrasions and skin tears Dressing Change: Adaptic Right forearm: Wound Type: Skin Tear Dressing Change: Adaptic Right elbow: Wound Type: Skin Tear Dressing Change: Adaptic Therapies Physical Therapy: Eval and Treat Occupational Therapy: Eval and Treat Problem/Diagnosis (1) Acute renal insufficiency: Status: Acute Code(s): N28.9 - Disorder of kidney and ureter, unspecified Plan #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 He was noted to have a right patchy lobe infiltrate and it was suspected he had pneumonia and he was started on antibiotics. He had 2 out of 2 blood cultures for gram-negative rods, speciated to Klebsiella pneumonia, suspect that lung pneumonia was due to Klebsiella pneumonia as no other source found. Overall he improved significantly and on day of discharge had no complaints and reported his pain in his left leg was better, no breathing complaints. Plan was to send to TCU with oral antibiotics however given interaction with Levaquin and amiodarone decision was made to discharge with 4 more days of IV Rocephin through peripheral IV given short- term. Additionally during this hospitalization: Echocardiogram showed EF of 60% with moderate concentric left ventricular hypertrophy, indeterminate diastolic function as well as severe pulmonary hypertension and severe mitral annular calcification with moderate tricuspid valve insufficiency. Did have elevated BNP of 1355 and he did have a slight right-sided effusion and an O2 sat of 92% on room air and responded well to Bumex, given Bumex due to Lasix intolerance. Did well with Bumex however creatinine worsened and ultimately nephrology was consulted. Was noted a protein in his urine, renal ultrasound with cysts, negative postvoid. Lisinopril and hydrochlorothiazide were held. Ultimately he did begin to improve with Bumex held and creatinine improving. On day of discharge did have slight bump in AST and ALT but has no complaints at all including no abdominal pain, no diarrhea, no nausea. Can consider repeating liver function in several days and if remains elevated could always consider further GI eval with liver ultrasound and referral outpatient. Discharge instructions as follows: DISCHARGE INSTRUCTIONS PLEASE READ *Please take this with you to your next doctors appointment* -You grew Klebsiella pneumonia and your blood cultures will be transitioned to Rocephin 2 g every 24 hours for 4 days starting 12/04 through 12/07. Given the short duration this can be run through peripheral IV agreeable with a transitional care unit -Would recommend lab work (CMP) to check your kidney function, potassium, and liver function in 2 to 3 days and a CBC in 2 to 3 days to check your platelet function to assess safety of resuming your aspirin. -Your lisinopril and chlorthalidone have been held due to your kidney function, and your amlodipine and hydralazine were held due to your low blood pressure. Carvedilol was also decreased. 1 or multiple of these medications will likely need to be added back over time, continue to routinely check her blood pressure -You had required bumetanide due to initially having some extra fluid on you ragini t you are retaining. -Weigh yourself every day. A sudden weight gain can mean you are retaining fluid. Weigh yourself at the same time of day and in the same kind of clothes. Ideally, weigh yourself first thing in the morning after you empty your bladder, but before you eat breakfast. If you begin to gain weight we may need to restart Bumex as needed or scheduled -Please call your physician if your weight goes up by more than 2 pounds in 1 day or 5 pounds in 1 week. This can be a sign that you are retaining more fluid than you should be. -Please follow-up with nephrology upon discharge. Please call their office to schedule hospital follow-up appointment upon discharge. -Would benefit from following with cardiology upon discharge due to calcifications on your mitral valve and elevated blood pressure in your lungs -Please call your primary care provider's office upon discharge to schedule a hospital follow up within 1 week. -For any concerning signs or symptoms please call 911 or proceed to the nearest emergency department Allergies/Procedures Done in Hospital Allergies hydrochlorothiazide Allergy (Severe, Verified 11/29/22 01:38) Rash furosemide [From Lasix] Allergy (Verified 11/29/22 01:38) Severe Rash Itchy lovastatin [From Mevacor] Allergy (Verified 11/29/22 01:38) Rash amlodipine Adverse Reaction (Verified 11/29/22 01:38) Swelling Procedures: 2-D Echocardiogram Type of Care/Length of Stay Estimated LOS: Convalescent Care Less Than 30 days Type of Care Needed: Skilled Rehab Potential: Fair Prognosis: Fair Additional Orders/Day of Discharge Day of Discharge: 12/03/22 Dietary and Speech Recommendations Dietitian Recommendations/Changes: Continue Cardiac diet Available for diet education as needed Discharge Plan Admission Admit Date/Time: 11/29/22 04:29 Primary Reason for Your Visit: Weakness Attending Provider: Sammie Castaneda Primary Care Provider: Rosa Maria Santacruz Consulting Providers: Jakob Alexander ; Kvng James Instructions Patient Instructions: Pulmonary Hypertension Additional Instructions / Restrictions: DISCHARGE INSTRUCTIONS PLEASE READ *Please take this with you to your next doctors appointment* -You grew Klebsiella pneumonia and your blood cultures will be transitioned to Rocephin 2 g every 24 hours for 4 days starting 12/04 through 12/07. Given the short duration this can be run through peripheral IV agreeable with a transitional care unit -Would recommend lab work (CMP) to check your kidney function, potassium, and liver function in 2 to 3 days and a CBC in 2 to 3 days to check your platelet function to assess safety of resuming your aspirin. -Your lisinopril and chlorthalidone have been held due to your kidney function, and your amlodipine and hydralazine were held due to your low blood pressure. Carvedilol was also decreased. 1 or multiple of these medications will likely need to be added back over time, continue to routinely check her blood pressure -You had required bumetanide due to initially having some extra fluid on you that you are retaining. -Weigh yourself every day. A sudden weight gain can mean you are retaining fluid. Weigh yourself at the same time of day and in the same kind of clothes. Ideally, weigh yourself first thing in the morning after you empty your bladder, but before you eat breakfast. If you begin to gain weight we may need to restart Bumex as needed or scheduled -Please call your physician if your weight goes up by more than 2 pounds in 1 day or 5 pounds in 1 week. This can be a sign that you are retaining more fluid than you should be. -Please follow-up with nephrology upon discharge. Please call their office to schedule hospital follow-up appointment upon discharge. -Would benefit from following with cardiology upon discharge due to calcifications on your mitral valve and elevated blood pressure in your lungs -Please call your primary care provider's office upon discharge to schedule a hospital follow up within 1 week. -For any concerning signs or symptoms please call 911 or proceed to the nearest emergency department Discharge Orders/Prescriptions Prescriptions: New ipratropium-albuterol 0.5 mg-3 mg(2.5 mg base)/3 mL Solution For Nebulization 3 ml inhalation TID PRN (Reason: wheezing or sob) 30 Days Qty: 90 0RF amiodarone 200 mg Tablet 100 mg PO DAILY 30 Days Qty: 15 0RF carvedilol 3.125 mg Tablet 3.125 mg PO BID 30 Days Qty: 60 0RF ceftriaxone 2 gram recon soln 2 g IV Q24H 4 Days Qty: 10 0RF Rx Instructions: Starting 12/04-12/07 Continued balsalazide [Colazal] 750 mg capsule 2,250 mg PO BID ferrous sulfate 325 MG tablet 325 mg PO DAILY Label Comments: Iron supplement zinc gluconate 50 MG tablet 50 mg PO DAILY Label Comments: supplement vitamin B complex 1 EACH capsule 1 each PO DAILY Label Comments: Vitamin supplement levothyroxine 50 mcg tablet 75 mcg PO DAILY atorvastatin [Lipitor] 40 mg tablet 40 mg PO DAILY Qty: 90 3RF Held aspirin 81 MG tablet 81 mg PO DAILY@0800 Hold Instructions: Resume on 12/06/22. Would recheck platelet function prior to resuming Label Comments: will stop 5 days prior to surgery Discontinued amlodipine 10 mg tablet 10 mg PO DAILY Qty: 90 3RF carvedilol [Coreg] 6.25 mg tablet 6.25 mg PO BID Qty: 180 3RF Rx Instructions: must administer with a meal/food hydralazine 50 mg tablet 50 mg PO BID chlorthalidone 25 mg tablet 25 mg PO DAILY Qty: 90 3RF amiodarone 200 mg tablet 200 mg PO DAILY Qty: 90 3RF lisinopril 20 mg tablet 20 mg PO BID Qty: 180 3RF Referrals / Follow Up: Rosa Maria Santacruz MD [Primary Care Provider] - Within 1 Week Kvng James MD [Med Staff - Consulting] - See Referral Note (Please follow-up with nephrology upon discharge. Please call their office to schedule hospital follow-up appointment upon discharge.) Teresa Pop PA [Med Staff - Adv Practice Prof] - See Referral Note (Please follow-up with cardiology regarding your high blood pressure in your lungs and the calcium around your mitral valve) Disposition Disposition (needs filled in before D/C Order can be placed): Custodial Facility
--- NOTE | 2022-12-03 15:06 | DS.PCM_ITS ---
Providers Date of Admission: 11/29/22 Date of Discharge: 12/03/22 Primary Care Physician: Dr. Rosa Maria Santacruz MD Consultations 11/29/22 05:22 Consult: Onc/Wound/cellar packer Routine Comment: 11/30/22 15:31 Consult: Nephrology Routine Consulting Provider: Kvng James Reason for Consult: Worsening renal function EMERGENT Consult: No MD Notified: Yes Date Notified: 11/30/22 Time Notified: 15:38 Method of Notification: Answering Service Reason For Visit: FALL, ELEVATED TROPONIONS, PANCYTOPENIA Diagnosis Discharge Diagnosis (1) Acute renal insufficiency: Status: Acute Code(s): N28.9 - Disorder of kidney and ureter, unspecified Plan #MYRON on CKD stage IIIb #Klebsiella pneumonia bacteremia likely secondary to Klebsiella pneumonia pneumonia #Elevated troponin, no ACS #Severe pulmonary hypertension/severe mitral annular calcification #Pancytopenia #Hypothyroidism #History of ulcerative colitis #hx CAD status post CABG and stenting #A-fib #Alcohol use history -EtOH negative #Falls #Hx empyema with VATS Medications at Discharge Home Medications ferrous sulfate 325 mg (65 mg iron) tablet 325 mg PO DAILY vitamin 05/28/15 zinc gluconate 50 mg tablet 50 mg PO DAILY supplement 05/28/15 vitamin B complex 1 each PO DAILY vitamin 02/07/16 aspirin 81 mg tablet,delayed release 81 mg PO DAILY@0800 [facility] 08/29/16 levothyroxine 50 mcg tablet 75 mcg PO DAILY thyroid 06/13/20 balsalazide 750 mg capsule (Colazal) 2,250 mg PO BID Check with primary doctor 05/16/21 atorvastatin 40 mg tablet (Lipitor) 40 mg PO DAILY #90 tabs 03/13/22 amiodarone 200 mg tablet 100 mg PO DAILY 30 days #15 tabs 12/03/22 carvedilol 3.125 mg tablet 3.125 mg PO BID 30 days #60 tabs 12/03/22 ceftriaxone 2 gram intravenous solution 2 g IV Q24H 4 days #10 ea 12/03/22 ipratropium 0.5 mg-albuterol 3 mg (2.5 mg base)/3 mL nebulization soln 3 ml inhalation TID PRN wheezing or sob 30 days #90 mL 12/03/22 Hospital Course Procedures Transthoracic echo Summary of Care Provided Minutes Spent on Discharge: 40 Hospital Course: 82-year-old male with history of CKD stage IIIb, coronary artery disease, PVD, ulcerative colitis, hypothyroidism presented to [facility] 11/29/2022 due to falls and weakness. He was noted to have a right patchy lobe infiltrate and it was suspected he had pneumonia and he was started on antibiotics. He had 2 out of 2 blood cultures for gram-negative rods, speciated to Klebsiella pneumonia, suspect that lung pneumonia was due to Klebsiella pneumonia as no other source found. Overall he improved significantly and on day of discharge had no complaints and reported his pain in his left leg was better, no breathing complaints. Plan was to send to TCU with oral antibiotics however given interaction with Levaquin and amiodarone decision was made to discharge with 4 more days of IV Rocephin through peripheral IV given short- term. Additionally during this hospitalization: Echocardiogram showed EF of 60% with moderate concentric left ventricular hypertrophy, indeterminate diastolic function as well as severe pulmonary hypertension and severe mitral annular calcification with moderate tricuspid valve insufficiency. Did have elevated BNP of 1355 and he did have a slight right-sided effusion and an O2 sat of 92% on room air and responded well to Bumex, given Bumex due to Lasix intolerance. Did well with Bumex however creatinine worsened and ultimately nephrology was consulted. Was noted a protein in his urine, renal ultrasound with cysts, negative postvoid. Lisinopril and hydrochlorothiazide were held. Ultimately he did begin to improve with Bumex held and creatinine improving. On day of disc jenny did have slight bump in AST and ALT but has no complaints at all including no abdominal pain, no diarrhea, no nausea. Can consider repeating liver function in several days and if remains elevated could always consider further GI eval with liver ultrasound and referral outpatient. Discharge instructions as follows: DISCHARGE INSTRUCTIONS PLEASE READ *Please take this with you to your next doctors appointment* -You grew Klebsiella pneumonia and your blood cultures will be transitioned to Rocephin 2 g every 24 hours for 4 days starting 12/04 through 12/07. Given the short duration this can be run through peripheral IV agreeable with a transition al care unit -Would recommend lab work (CMP) to check your kidney function, potassium, and liver function in 2 to 3 days and a CBC in 2 to 3 days to check your platelet function to assess safety of resuming your aspirin. -Your lisinopril and chlorthalidone have been held due to your kidney function, and your amlodipine and hydralazine were held due to your low blood pressure. Carvedilol was also decreased. 1 or multiple of these medications will likely need to be added back over time, continue to routinely check her blood pressure -You had required bumetanide due to initially having some extra fluid on you that you are retaining. -Weigh yourself every day. A sudden weight gain can mean you are retaining fluid. Weigh yourself at the same time of day and in the same kind of clothes. Ideally, weigh yourself first thing in the morning after you empty your bladder, but before you eat breakfast. If you begin to gain weight we may need to restart Bumex as needed or scheduled -Please call your physician if your weight goes up by more than 2 pounds in 1 day or 5 pounds in 1 week. This can be a sign that you are retaining more fluid than you should be. -Please follow-up with nephrology upon discharge. Please call their office to schedule hospital follow-up appointment upon discharge. -Would benefit from following with cardiology upon discharge due to calcifications on your mitral valve and elevated blood pressure in your lungs -Please call your primary care provider's office upon discharge to schedule a hospital follow up within 1 week. -For any concerning signs or symptoms please call 911 or proceed to the nearest emergency department Physical Exam Narrative General: Alert, no apparent distress HEENT: Atraumatic, normocephalic Eyes: Anicteric, normal conjunctiva, extraocular movements grossly intact Neck: Supple Respiratory: Normal respiratory effort when sitting still, no wheezes, airflow improved Cardiovascular: Regular rate GI: Soft, nontender, nondistended Extremities: Trace edema in lower extremities Musculoskeletal: Moving all extremities Neuro: No overt focal neurological deficits Skin: Left leg wrapped Psych: Cooperative Weight / BMI Weight Weight: 80.4 kg Body Mass Index (BMI) 25.4 ABG / Lab / Microbiology Data Result Diagrams: 12/03/22 05:57 12/03/22 05:57 Laboratory: Laboratory Results - last 24 hr 12/02/22 06:25: Haptoglobin 307 12/03/22 05:57: WBC 5.4, RBC 2.50 L, Hgb 8.7 L, Hct 26.2 L, MCV 104.8 H, MCH 34.8 H, MCHC 33.2, RDW Std Deviation 60.0 H, RDW Coeff of Chanel 15.5 H, Plt Count 63 L, MPV 11.9, Immature Gran % (Auto) 1.300 H, Neut % (Auto) 78.1 H, Lymph % (Auto) 7.7 L, [place] % (Auto) 12.0 H, Eos % (Auto) 0.7, Baso % (Auto) 0.2, Absolute Neuts (auto) 4.2, Absolute Lymphs (auto) 0.42 L, Nucleated RBC % 0, Differential Comment SCANNED, Platelet Estimate MKD 12/03/22 05:57: Sodium 138, Potassium 3.4 L, Chloride 112 H, Carbon Dioxide 21.0, Anion Gap 5, BUN 68 H, Creatinine 2.74 H, Estim Creat Clear Calc 21.83, Est GFR (MDRD) Af Amer 29 L, Est GFR (MDRD) Non-Af 24 L, BUN/Creatinine Ratio 24.8 H, Glucose 121 H, Calcium 8.2 L, Total Bilirubin 0.50, AST 161 H, ALT 94 H, Alkaline Phosphatase 163 H, Total Protein 4.9 L, Albumin 2.0 L, Globulin 2.9, Albumin/Globulin Ratio 0.7 L Microbiology: Microbiology 11/29/22 02:30 Blood Culture (Wb) - Anticubital Right Blood Culture - Final Klebsiella pneumoniae sp pneum 11/30/22 16:31 Urine, Random Legionella Antigen - Final 11/30/22 16:31 Urine, Random Streptococcus pneumoniae Antigen (M - Final 11/29/22 02:03 Blood Culture (Wb) - Anticubital Left Blood Culture - Preliminary GNR lactose director software quality assurance 11/29/22 02:06 Nasal Secretion SARS-CoV-2 & FLU Antigen (Rapid) - Final Meaningful Use Info Meaningful Use Diagnoses (Choose all that apply): None applicable Discharge Plan Admission Admit Date/Time: 11/29/22 04:29 Primary Reason for Your Visit: Weakness Attending Provider: Sammie Castaneda Primary Care Provider: Rosa Maria Santacruz Consulting Providers: Jakob Alexander ; Kvng James Instructions Patient Instructions: Pulmonary Hypertension Additional Instructions / Restrictions: DISCHARGE INSTRUCTIONS PLEASE READ *Please take this with you to your next doctors appointment* -You grew Klebsiella pneumonia and your blood cultures will be transitioned to Rocephin 2 g every 24 hours for 4 days starting 12/04 through 12/07. Given the short duration this can be run through peripheral IV agreeable with a transitional care unit -Would recommend lab work (CMP) to check your kidney function, potassium, and liver function in 2 to 3 days and a CBC in 2 to 3 days to check your platelet function to assess safety of resuming your aspirin. -Your lisinopril and chlorthalidone have been held due to your kidney function, and your amlodipine and hydralazine were held due to your low blood pressure. Carvedilol was also decreased. 1 or multiple of these medications will likely need to be added back over time, continue to routinely check her blood pressure -You had required bumetanide due to initially having some extra fluid on you that you are retaining. -Weigh yourself every day. A sudden weight gain can mean you are retaining fluid. Weigh yourself at the same time of day and in the same kind of clothes. Ideally, weigh yourself first thing in the morning after you empty your bladder, but before you eat breakfast. If you begin to gain weight we may need to r estart Bumex as needed or scheduled -Please call your physician if your weight goes up by more than 2 pounds in 1 day or 5 pounds in 1 week. This can be a sign that you are retaining more fluid than you should be. -Please follow-up with nephrology upon discharge. Please call their office to schedule hospital follow-up appointment upon discharge. -Would benefit from following with cardiology upon discharge due to calcifications on your mitral valve and elevated blood pressure in your lungs -Please call your primary care provider's office upon discharge to schedule a hospital follow up within 1 week. -For any concerning signs or symptoms please call 911 or proceed to the nearest emergency department Discharge Orders/Prescriptions Prescriptions: New ipratropium-albuterol 0.5 mg-3 mg(2.5 mg base)/3 mL Solution For Nebulization 3 ml inhalation TID PRN (Reason: wheezing or sob) 30 Days Qty: 90 0RF amiodarone 200 mg Tablet 100 mg PO DAILY 30 Days Qty: 15 0RF carvedilol 3.125 mg Tablet 3.125 mg PO BID 30 Days Qty: 60 0RF ceftriaxone 2 gram recon soln 2 g IV Q24H 4 Days Qty: 10 0RF Rx Instructions: Starting 12/04-12/07 Continued balsalazide [Colazal] 750 mg capsule 2,250 mg PO BID ferrous sulfate 325 MG tablet 325 mg PO DAILY Label Comments: Iron supplement zinc gluconate 50 MG tablet 50 mg PO DAILY Label Comments: supplement vitamin B complex 1 EACH capsule 1 each PO DAILY Label Comments: Vitamin supplement levothyroxine 50 mcg tablet 75 mcg PO DAILY atorvastatin [Lipitor] 40 mg tablet 40 mg PO DAILY Qty: 90 3RF Held aspirin 81 MG tablet 81 mg PO DAILY@0800 Hold Instructions: Resume on 12/06/22. Would recheck platelet function prior to resuming Label Comments: will stop 5 days prior to surgery Discontinued amlodipine 10 mg tablet 10 mg PO DAILY Qty: 90 3RF carvedilol [Coreg] 6.25 mg tablet 6.25 mg PO BID Qty: 180 3RF Rx Instructions: must administer with a meal/food hydralazine 50 mg tablet 50 mg PO BID chlorthalidone 25 mg tablet 25 mg PO DAILY Qty: 90 3RF amiodarone 200 mg tablet 200 mg PO DAILY Qty: 90 3RF lisinopril 20 mg tablet 20 mg PO BID Qty: 180 3RF Referrals / Follow Up: Rosa Maria Santacruz MD [Primary Care Provider] - Within 1 Week Kvng James MD [Med Staff - Consulting] - See Referral Note (Please follow-up with nephrology upon discharge. Please call their office to schedule hospital follow-up appointment upon discharge.) Teresa Pop PA [Med Staff - Adv Practice Prof] - See Referral Note (Please follow-up with cardiology regarding your high blood pressure in your lungs and the calcium around your mitral valve) Disposition Disposition (needs filled in before D/C Order can be placed): Detention Facility Charges/Coding Visit Charges Inpatient E&M: 74623 Disch Hosp >30min
--- NOTE | 2022-12-03 15:10 | CASEMGMT ---
Patient is medically ready for discharge on this date. Precert was approved for transfer to TCU. Discharge orders and medication list sent to TCU. Patient informed and agreed to above. Patient stated he would let his know that he will be going to TCU. TCU informed patient medically ready for transfer today. Griffin Haynes ROOFING FOREMAN, SHOP LABORER
--- NOTE | 2022-12-03 15:50 | CASEMGMT ---
Patient confirmed he has Advanced Directives in place. Patient reports he has copies of documents at home. Sw encouraged patient to bring in copy to hospital so it can get scanned into his medical record. Patient expressed understanding. Griffin Haynes, HEAD INSPECTOR, TIRE BUILDER OPERATOR
--- NOTE | 2022-12-03 17:15 | NURSING ---
Report called to [place] in TCU
== END 2022-12-03 18:51 | disposition skilled nursing facility (03) | DRG 871 ==
LOC: ED 04:19 → PCU 04:43
PROVIDERS: Internal Medicine Nephrology; Emergency Provider Emergency Medicine; PCP Family Medicine; Visit Provider Internal Medicine
DX: A41.59 Other Gram-negative sepsis (principal); J15.0 Pneumonia due to Klebsiella pneumoniae; D61.818 Other pancytopenia; N17.9 Acute kidney failure, unspecified; I24.8 Other forms of acute ischemic heart disease; I27.29 Other secondary pulmonary hypertension; D63.1 Anemia in chronic kidney disease; N18.32 Chronic kidney disease, stage 3b; J43.9 Emphysema, unspecified; I48.0 Paroxysmal atrial fibrillation; I73.9 Peripheral vascular disease, unspecified; I25.10 Atherosclerotic heart disease of native coronary artery without angina pectoris; I12.9 Hypertensive chronic kidney disease with stage 1 through stage 4 chronic kidney disease, or unspecified chronic kidney disease; E78.00 Pure hypercholesterolemia, unspecified; E03.9 Hypothyroidism, unspecified; H91.13 Presbycusis, bilateral; S81.812A Laceration without foreign body, left lower leg, initial encounter; W18.39XA Other fall on same level, initial encounter; E87.6 Hypokalemia; I34.0 Nonrheumatic mitral (valve) insufficiency; I34.81 Nonrheumatic mitral (valve) annulus calcification; F10.90 Alcohol use, unspecified, uncomplicated; R29.6 Repeated falls; Z66 Do not resuscitate; Z95.1 Presence of aortocoronary bypass graft; Z95.5 Presence of coronary angioplasty implant and graft; Z79.82 Long term (current) use of aspirin; Z79.899 Other long term (current) drug therapy; Z87.19 Personal history of other diseases of the digestive system; Z87.891 Personal history of nicotine dependence
CPT/HCPCS: 36415; 71045; 73630; 76770; 80048; 80053; 81001; 82077; 82436; 82550; 82570; 82607; 82728; 82746; 83010; 83540; 83550; 83605; 83615; 83880; 83935; 84133; 84156; 84300; 84439; 84443; 84484; 84540; 85025; 87040; 87186; 87428; 87449; 87811; 93005; 93306; 94667; 97110; 97116; 97162; 97166; 97530; 97535; 97802; 99285; J7030; Q9957; A4216; C8929

== ENCOUNTER 2022-12-03 18:50 | Inpatient (IN) | payer MEDICARE, OTHER, SELFPAY ==
[2022-12-03 19:20] VITALS: BP 151/69; PULSE 69; RESP 16; TEMP 36.9; O2SAT 95; BMI 24.9
[2022-12-03 21:20] VITALS: PULSE 72; RESP 16; O2SAT 95
--- NOTE | 2022-12-03 22:04 | HP.PCM_ITS ---
HPI - General General Date of Admission: 12/03/22 Date of Service: 12/04/22 Chief Complaint: Here for rehabilitation. HPI Narrative 11/29/2022 EULOGIO NOGUERA, is a 82 Male who presents to [facility] with fall. Fall, weakness, fever. Fell going to bathroom, went to sit on toilet, missed, fell to floor. Unable to get up, fell 4 nights ago, chills 4 nights ago. Generalized weakness, no head injury. WBC 2.0, Hemoglobin 8.1, Platelets 55, BUN 43, Creatinine 2.61. Lactate okay, Urinalysis okay, Chest X-ray showed right middle lobe infiltrate. Troponin 134. 11/29/2022 Admit to Hospital. Ceftriaxone, Azithromycin, urinary antigens, sputum cultures for pneumonia. Serial troponins for elevated troponin. Evaluate pancytopenia. IV fluids for acute kidney injury. 11/29/2022 Echo Moderate concentric LVH. LVSF 60%. Severe pulmonary hypertension. 11/29/2022 Zosyn, Azithromycin for pneumonia. Blood culture growing gram negative rods. Troponin trending down. Anemia is anemia of chronic disease. 11/30/2022 Oozing right elbow wound, left leg wound. Await final culture result. BNP 1355, Bumex IV given. Creatinine increased to 2.93. 12/01/2022 Feeling better. Blood culture growing Klebsiella pneumonia, Antibiotics changed to Cefepime. Bumex IV daily for acute diastolic congestive heart failure. Creatinine 3.08, Nephrology consulted. 12/02/2022 Left leg pain improving. Hold Bumex, Hold Lisinopril, Hold HCTZ for acute kidney injury. 12/03/2022 Creatinine improved to 2.74. 12/03/2022 Admit to TCU with debility, here for rehabilitation, strengthening, prior to discharge home with . [facility] Medical History Alcohol use Ambulates with cane Atherosclerotic heart disease of [place] coronary artery without angina pectoris Atrial fibrillation Atrial fibrillation and flutter Cardiology follow-up encounter Carotid artery stenosis Dietary restriction Emphysema of lung Essential hypertension Former smoker Hematemesis/vomiting blood High cholesterol History of atrial fibrillation History of cardioversion (~05/09/20) History of coronary artery disease History of echocardiogram History of GI bleed History of right inguinal hernia History of stress test History of transesophageal echocardiography (ROSI) History of umbilical hernia Hx of ulcerative colitis Hypercholesterolemia Hyperlipidemia Hypertension Injury of head and neck senior care (current) use 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 Mitral valve insufficiency PAD (peripheral artery disease) Premature atrial contractions Right carotid bruit Shortness of breath on exertion Subclavian artery stenosis, left (~10/15/19) Thrombocytopenia Thrombocytopenia Thyroid disease Ulcerative colitis Ulcerative colitis Upper GI bleed Upper GI bleed Walker as ambulation aid Wears glasses Wears hearing aid Home Medications ferrous sulfate 325 mg (65 mg iron) tablet 325 mg PO DAILY vitamin 05/28/15 [History Last Taken 05/09/20] zinc gluconate 50 mg tablet 50 mg PO DAILY supplement 05/28/15 [History Last Taken 05/09/20] vitamin B complex 1 each PO DAILY vitamin 02/07/16 [History Last Taken 05/09/20] aspirin 81 mg tablet,delayed release 81 mg PO DAILY@0800 heart [facility] 08/29/16 [History Last Taken 04/23/21] levothyroxine 50 mcg tablet 75 mcg PO DAILY thyroid 06/13/20 [History Last Taken Unknown] balsalazide 750 mg capsule (Colazal) 2,250 mg PO BID Check with primary doctor 05/16/21 [History Last Taken Unknown] amiodarone 200 mg tablet 100 mg PO DAILY heart 12/03/22 [History Last Taken Unknown] atorvastatin 40 mg tablet (Lipitor) 40 mg PO DAILY cholesterol 12/03/22 [History Last Taken Unknown] carvedilol 3.125 mg tablet 3.125 mg PO BID heart 12/03/22 [History Last Taken Unknown] ceftriaxone 2 gram intravenous solution 2 g IV Q24H antibiotic 12/03/22 [History Last Taken Unknown] ipratropium 0.5 mg-albuterol 3 mg (2.5 mg base)/3 mL nebulization soln 3 ml inhalation TID PRN wheezing or sob 30 days #90 mL 12/03/22 [Rx Last Taken Unknown] Allergy/AdvReac Type Severity Reaction Status Date / Time hydrochlorothiazide Allergy Severe Rash Verified 11/29/22 01:38 furosemide [From Lasix] Allergy Severe Verified 11/29/22 01:38 Rash Itchy lovastatin [From Mevacor] Allergy Rash Verified 11/29/22 01:38 amlodipine AdvReac Swelling Verified 11/29/22 01:38 Family History Father CAD (coronary artery disease) Mother Cancer breast Surgical History Aortocoronary bypass status (~02/12/17) History of cardiac catheterization History of hand surgery History of right inguinal hernia repair History of umbilical hernia repair History of vasectomy Hx of CABG Hx of colonoscopy Hx of esophagogastroduodenoscopy Hx of heart bypass surgery S/P right inguinal hernia repair S/P umbilical hernia repair, follow-up exam Status post insertion of drug-eluting stent into right coronary artery for coronary artery disease (~04/2009) Social History adopted: No household members: spouse housing: house number of children: 2 current occupational status: retired Smoking Status: Former smoker Tobacco: How many years used: 50 (stopped about 10 yrs ago) how long ago did patient quit smokin years ago alcohol intake: current alcohol intake frequency: 3 or more drinks per day Alcohol type: beer, wine and hard liquor substance use type: does not use caffeine: Yes Type: coffee Number of servings: 2 ROS Constitutional Constitutional: Reports weakness; Denies chills, fever(s) or weight gain ENT HEENT: Denies headache(s), nasal congestion or nasal discharge Cardiovascular Cardiovascular: Denies chest pain or palpitations Respiratory/Chest Respiratory/Chest: Denies cough, excessive phlegm production or shortness of breath with exertion Gastrointestinal Gastrointestinal: Denies abdominal pain, nausea or vomiting Genitourinary Genitourinary: Denies dysuria Musculoskeletal Musculoskeletal: Denies joint pain or joint swelling Integumentary Integumentary: Denies rash or wounds Neurologic Neurologic: Denies focal weakness, numbness or tingling Psychiatric Psychiatric: Denies anxiety, auditory hallucinations, depression, homicidal ideation or suicidal ideation Physical Exam Const alert General Appearance: cooperative HEENT normocephalic Eyes PERRL and EOMs intact bilaterally Neck supple, no JVD and no carotid bruits Resp normal respiratory effort, normal air movement and clear to auscultation bilaterally Cardio regular rate and regular rhythm GI normal to inspection, nondistended, normoactive bowel sounds, non-tender and non-distended Extremity normal capillary refill Extremity Narrative: Right upper extremity, left lower extremity dressed. General Extremity: Negative for edema Skin no rashes or lesions noted General Skin Exam: no breakdown Psych affect normal Appearance: appropriate Results Lab / Micro Data Result Diagrams: 12/04/22 05:27 12/04/22 05:27 Assessment & Plan Assessment/Plan (1) Debility: (2) Pneumonia: (3) Bacteremia: (4) Pancytopenia: (5) Elevated troponin: (6) Acute kidney injury: (7) Acute diastolic (congestive) heart failure: (8) Iron deficiency anemia: (9) Coronary artery disease: (10) Hypothyroidism: (11) Ulcerative colitis: (12) Hyperlipidemia: (13) Hypertension: (14) Atrial fibrillation: (15) Alcohol dependence: PLAN: Plan 82 year old male with below past medical history hospitalized for Klebsiella pneumonia, complicated by bacteremia, acute kidney injury, acute diastolic congestive heart failure, pancytopenia, admitted to TCU with debility, here for rehabilitation, strengthening, prior to discharge home with . * Debility - PT/OT. * Pain - Tylenol 1000mg q6h prn pain (1-10). * Bowel - senna/colace 1 tablet bid, MOM 30ml po x 1 prn. * Adult immunization - Administer pneumonia vaccine, covid19 vaccine, flu vaccine as appropriate. * DVT prophylaxis - Hold, anemia. * Atrial fibrillation - Coreg 3.125mg bid, Amiodarone 100mg daily, aspirin 81mg daily, ? no anticoagulation. * Coronary artery disease - Coreg 3.125mg bid, aspirin 81mg daily. * Hyperlipidemia - Atorvastatin 40mg qhs. * Ulcerative colitis - Balsalazide 2250mg bid. * Klebsiella right middle lobe pneumonia - Ceftriaxone 2gm iv q24h thru 12/07/2022. * Iron deficiency anemia - Ferrous sulfate 325mg daily. * Shortness of breath - Duoneb 3ml tid prn. * Hypothyroidism - Levothyroxine 75mcg daily. * Leg cramps - Vitamin B complex 1 capsule daily. * Zinc deficiency - Zinc 220mg daily. * Acute kidney injury - Consult nephrology to follow.
[2022-12-03] MEDS: Atorvastatin Calcium 40 MG Tablet PO (22:37)
[2022-12-03] MEDS: Carvedilol 3.125 MG TABLET PO (22:37)
[2022-12-03] MEDS: Acetaminophen 500 MG Tablet 1000 MG PO (23:13)
[2022-12-04 05:53] LABS: Absolute Neutrophil Count 5.1 X10^3/uL (2.0-7.7); Basophil# 0.01 X10^3/uL; Basophil% 0.2 % (0-1); Eosinophil# 0.04 X10^3/uL; Eosinophils% 0.6 % (0-5); Hematocrit 25.4 % (40-54); Hemoglobin 8.4 g/dL (13.0-16.5); Lymphocyte % 6.4 % (19-41); Mean Corp Hgb Conc 33.1 g/dL (32-36); Mean Corpuscular Hgb 34.6 pg (27.0-32.0); Mean Corpuscular Volume 104.5 fL (80-94); Mean Platelet Vol. 11.4 fl (6.2-12.0); Monocyte# 0.56 X10^3/uL; Monocyte% 8.9 % (0-10); NRBC Flagged by Analyzer 0 % (0-5); Neutrophil # 5.12 X10^3/uL (2.7-7.7); Neutrophil % 81.5 % (47-70); POSITIVE COUNT YES; POSITIVE DIFFERENTIAL YES; Platelet Count 79 K/mm3 (150-450); RBC Distribution Width CV 15.3 % (11.6-14.6); RBC Distribution Width SD 59.4 fl (35.1-43.9); Red Blood Count 2.43 M/mm3 (4.6-6.2); White Blood Count 6.3 K/mm3 (4.4-11.0)
[2022-12-04 05:58] LABS: Differential Indicated SCAN CRITERIA MET
[2022-12-04 06:02] VITALS: BP 144/61; PULSE 69
[2022-12-04] MEDS: Acetaminophen 500 MG Tablet 1000 MG PO ×2 (06:02→20:11)
[2022-12-04] MEDS: Vitamin B Comp W-C Capsule 1 CAP PO (06:03)
[2022-12-04] MEDS: Levothyroxine 75 MCG Tablet PO (06:03)
[2022-12-04] MEDS: Senna/Docusate Sodium 1 Tablet PO (06:04)
[2022-12-04] MEDS: Amiodarone 200 MG Tablet 100 MG PO (06:09)
[2022-12-04 06:26] LABS: Anion Gap 6 (5-15); BUN 69 mg/dL (7-18); BUN/Creat Ratio 28.6 RATIO (10-20); Calcium,Total 8.2 mg/dL (8.5-10.1); Chloride 115 mmol/L (98-107); Creatinine, Serum 2.41 mg/dL (0.70-1.30); EST Glomerular Filtration Rate 28 mL/min (>60); Est Glom Filt Rate - Afr Amer 33 mL/min (>60); Estimated Creatinine Clearance 24.82 ml/min; Glucose 109 mg/dL (74-106); Potassium 3.9 mmol/L (3.5-5.1); Sodium Level 143 mmol/L (136-145)
[2022-12-04 06:29] LABS: Differential Comment SCANNED; Hypochromasia RARE; Platelet Estimate MOD DEC (ADEQ)
[2022-12-04] MEDS: Ferrous Sulfate 325 MG Tablet PO (08:33)
[2022-12-04] MEDS: Carvedilol 3.125 MG TABLET PO ×2 (08:33→20:11)
[2022-12-04 08:35] VITALS: BP 129/59; PULSE 69
--- NOTE | 2022-12-04 09:39 | PN.RENAL_ITS ---
Subjective Subjective Sitting in recliner chair. No complaints. Reports has good appetite. Occasional loose bms per patient. Objective Data Objective Data Vital Signs: Vital Signs Temp Pulse Resp BP Pulse Ox O2 Del Method 98.4 F 69 16 129/59 H 95 Room Air 12/03/22 19:20 12/04/22 08:35 12/03/22 21:20 12/04/22 08:35 12/03/22 21:20 12/03/22 21:20 Oxygen Delivery Method Room Air Weight: 78.744 kg Body Mass Index (BMI) 24.9 Intake & Output: Intake and Output for Last 24 Hours 12/02/22 12/03/22 12/04/22 23:59 23:59 23:59 Intake Total 240 / 240 Balance 240 / 240 Lab / Micro Data Result Diagrams: 12/04/22 05:27 12/04/22 05:27 Labs: Laboratory Results - last 24 hr 12/04/22 05:27: WBC 6.3, RBC 2.43 L, Hgb 8.4 L, Hct 25.4 L, MCV 104.5 H, MCH 34.6 H, MCHC 33.1, RDW Std Deviation 59.4 H, RDW Coeff of Chanel 15.3 H, Plt Count 79 L, MPV 11.4, Immature Gran % (Auto) 2.400 H, Neut % (Auto) 81.5 H, Lymph % (Auto) 6.4 L, Woodson % (Auto) 8.9, Eos % (Auto) 0.6, Baso % (Auto) 0.2, Absolute N euts (auto) 5.1, Absolute Lymphs (auto) 0.40 L, Nucleated RBC % 0, Differential Comment SCANNED, Platelet Estimate MOD DEC, Hypochromasia RARE 12/04/22 05:27: Sodium 143, Potassium 3.9, Chloride 115 H, Carbon Dioxide 22.0, Anion Gap 6, BUN 69 H, Creatinine 2.41 H, Estim Creat Clear Calc 24.82, Est GFR (MDRD) Af Amer 33 L, Est GFR (MDRD) Non-Af 28 L, BUN/Creatinine Ratio 28.6 H, Glucose 109 H, Calcium 8.2 L Physical Exam Narrative A&Ox3, No apparent distress LS CTA S1, S2 Abdomen soft, nontender STARR wrap to left leg, trace non-pitting edema right leg. no thigh edema Assessment & Plan Assessment/Plan (1) Chronic kidney disease (CKD): QUALIFIERS: Chronic kidney disease stage: stage 4 (severe) Qualified Code(s): N18.4 - Chronic kidney disease, stage 4 (severe) (2) Acute kidney injury: PLAN: resolving PLAN: Plan 82-year-old male with history of CKD stage 3/4, iron deficiency anemia, thrombocytopenia and ulcerative colitis admitted for pneumonia.?Nephrology consulted for MYRON superimposed on CKD when patient was in PCU. MYRON on CKD stage 3/4.? Baseline creatinine seems to be around 2.0-2.4mg/dL.? Serum creatinine was 2.44 mg/dL in July 2022.? Creatinine 2.53 on admission, peaked 3.12mg/dL and today serum creatinine 2.41.? MYRON possibly from infection, overdiuresis. Renal function improving. Patient did receive a liter of IV fluids 2 days ago. No further need for IV fluids at this time. No acute or emergent indication for SOCIAL SERVICES ANALYST, potassium and bicarb acceptable, patient is nonoliguric and appears near euvolemic. Encouraged increase fluid/solute intake UA showed proteinuria; urine protein creatinine ratio 492 mg/g.? No hematuria.? Previous renal Dopplers were negative for stenosis, renal ultrasound no hydro.? Postvoid bladder scan was negative. Home medications on hold: Lisinopril and chlorthalidone patient does not need daily bmp lab, overall renal function stable and near baseline. Will follow periodically and will arrange for hospital follow-up at time of discharge. Blood pressures acceptable on carvedilol. Receiving IV antibiotics, ceftriaxone Was receiving IV Bumex when in PCU, but held due to worsening renal function. Currently on RA.? 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 Saw Dr. Mcintyre.? Normal LDH, haptoglobin and CPK level.? History of ulcerative colitis on balsalazide
--- NOTE | 2022-12-04 11:04 | PCM.PN.DRR ---
TCU RX Drug Regimen Review Subjective: TCU Admission. 82 YOM presented to [facility] ED after fall. Admitted to TCU on 12/03 with debility for rehab and strengthening prior to discharge to home where he resides with his . Objective: Allergies hydrochlorothiazide Allergy (Severe, Verified 11/29/22 01:38) Rash furosemide [From Lasix] Allergy (Verified 11/29/22 01:38) Severe Rash Itchy lovastatin [From Mevacor] Allergy (Verified 11/29/22 01:38) Rash amlodipine Adverse Reaction (Verified 11/29/22 01:38) Swelling Current Medications Generic Name Dose Route Start Last Admin Trade Name Freq PRN Reason Stop Dose Admin Acetaminophen 1,000 mg 12/03/22 22:07 12/04/22 06:02 Acetaminophen 500 Mg Tablet PO 1,000 mg Q6H PRN PRN Administration Pain Score 1-10 Albuterol/Ipratropium 3 ml 12/03/22 20:35 Ipratropium/Albuterol Sulfate 3 Ml Ampul.Neb INHALATION TID PRN wheezing or sob Amiodarone HCl 100 mg 12/04/22 06:00 12/04/22 06:09 Amiodarone 200 Mg Tablet PO 100 mg DAILY [facility] Administration Aspirin 81 mg 12/06/22 08:00 Aspirin E.C. 81 Mg Tablet PO DAILY@0800 [facility] Atorvastatin Calcium 40 mg 12/03/22 22:00 12/03/22 22:37 Atorvastatin Calcium 40 Mg Tablet PO 40 mg QHS RJ Administration Balsalazide 2,250 mg 12/04/22 06:00 Balsalazide Disodium 750 Mg Capsule PO BID [facility] Carvedilol 3.125 mg 12/03/22 21:00 12/04/22 08:33 Carvedilol 3.125 Mg Tablet PO 3.125 mg BID@0800,2000 [facility] Administration Ferrous Sulfate 325 mg 12/04/22 08:00 12/04/22 08:33 Ferrous Sulfate 325 Mg Tablet PO 325 mg DAILYCM [facility] Administration Ceftriaxone Sodium 2 gm/ 50 mls @ 100 mls/hr 12/04/22 10:00 Sodium Chloride IV 12/07/22 10:01 Q24 [facility] Levothyroxine Sodium 75 mcg 12/04/22 06:00 12/04/22 06:03 Levothyroxine 75 Mcg Tablet PO 75 mcg DAILY@0600 RJ Administration Magnesium Hydroxide 30 ml 12/03/22 22:21 Magnesium Hydroxide 30 Ml Udc PO X1 PRN Constipation Multivitamins 1 cap 12/04/22 06:00 12/04/22 06:03 Vitamin B Comp W-C Capsule PO 1 cap DAILY RJ Administration Senna/Docusate Sodium 1 tablet 12/03/22 22:30 12/04/22 06:04 Senna/Docusate Sodium 1 Tablet PO 1 tablet BID RJ Administration Tuberculin PPD 0.1 ml 12/11/22 10:00 Tuberculin,Purif.Prot.Deriv. 50 Tu/Ml Vial ID 12/11/22 10:01 X1 ONE Zinc Sulfate 220 mg 12/04/22 06:00 12/04/22 06:04 Zinc Sulfate (50mg Elemental) 220 Mg Capsule PO 220 mg DAILY RJ Administration Problem List (Last Reviewed 12/03/22 @ 22:[address] Jesu Hale MD) Alcohol dependence (Acute) Atrial fibrillation (Acute) Hypertension (Chronic) Hyperlipidemia (Acute) Ulcerative colitis (Acute) Hypothyroidism (Acute) Coronary artery disease (Acute) Iron deficiency anemia (Acute) Acute diastolic (congestive) heart failure (Acute) Acute kidney injury (Acute) Debility (Acute) Bacteremia (Acute) Pneumonia (Acute) Pancytopenia (Acute) Elevated troponin (Acute) Chronic kidney disease (CKD) (Chronic) Vital Signs Temp Pulse Resp BP Pulse Ox O2 Del Method 98.4 F 69 16 129/59 H 95 Room Air 12/03/22 19:20 12/04/22 08:35 12/03/22 21:20 12/04/22 08:35 12/03/22 21:20 12/03/22 21:20 Oxygen Delivery Method Room Air Weight: 78.744 kg Body Mass Index (BMI) 24.9 Sodium 143 mmol/L (136-145) 12/04/22 05:27 Potassium 3.9 mmol/L (3.5-5.1) 12/04/22 05:27 Chloride 115 mmol/L (98-107) H 12/04/22 05:27 Carbon Dioxide 22.0 mmol/L (21.0-32.0) 12/04/22 05:27 Anion Gap 6 (5-15) 12/04/22 05:27 BUN 69 mg/dL (7-18) H 12/04/22 05:27 Creatinine 2.41 mg/dL (0.70-1.30) H 12/04/22 05:27 Est GFR (MDRD) Af Amer 33 mL/min (>60) L 12/04/22 05:27 Est GFR (MDRD) Non-Af 28 mL/min (>60) L 12/04/22 05:27 BUN/Creatinine Ratio 28.6 RATIO (10-20) H 12/04/22 05:27 Glucose 109 mg/dL (74-106) H 12/04/22 05:27 Assessment/Plan: 1. Pain: acetaminophen 1000mg PO P6H PRN pain (1-10). Monitor: pain levels, prn medication use. To date, patient has used two doses for pain scores of 1 and 3 in the back. 2. Bowel: senna/docusate 1 tablet PO BID, MOM 30mL PO x1 PRN constipation. Monitor: increased/decreased constipation, diarrhea, and PRN usage. Last documented bowel movement was 11/30. No PRN doses given. 2. Klebsiella right middle lobe pneumonia: ceftriaxone 2gm iv q24h thru 12/07/2022. Monitor: s/s of infection, WBC and diarrhea. 4. Ulcerative colitis: balsalazide 2250mg PO bid. Monitor: headache, stomach upset, nausea, S/S of bleeding and dry mouth. 5. Atrial fibrillation/CAD: carvedilol 3.125mg PO BID, amiodarone 100mg PO daily, aspirin 81mg PO daily. Monitor: HR (69-72), BP (129-151/59-69), bleeding risk, fall risk, hemoglobin (last 8.4g/dL), potassium (last 3.9mmol/L) and sodium (last 143mmol/L). 6. Hyperlipidemia: atorvastatin 40mg PO QHS. Monitor: muscle aches, lipid panel (last was 08/22 and all WNL) and LFTs (last 12/03/22). 7. Hypothyroidism: levothyroxine 75mcg PO daily. Monitor: TSH and T4 levels (last check was 12/20 and both WNL). 8. Iron deficiency anemia: ferrous sulfate 325mg PO daily. Please continue to monitor for dark stools, constipation. 9. Zinc deficiency: zinc 220mg PO daily. Please continue to monitor. 10. Leg cramps: vitamin B complex 1 capsule PO daily. Please continue to monitor. 11. Shortness of Breath: DuoNeb 3mL neb soln TID PRN wheezing or SOB. Monitor: prn medication use, wheezing and SOB. To date, patient has not used PRN medication. Assessment/Plan for indications treated with psychotropic medications: None Medical chart and medication regimen reviewed. The following medication irregularities or issues were identified: None Date of Note:: 12/04/22
--- NOTE | 2022-12-04 11:26 | NURSING ---
Detasseling Crew Supervisor Note; Activity Asset: Marino Rebolledo is independent in his choice of daily activities. He also likes to be called Phil. When not with family, friends, Therapy or scientologist he enjoys tv, reading and working on his computer. Phil is not interested in out of room/group activities at this time. Staff will continue to offer out of room activities and respect his/her right to say no.
[2022-12-04] MEDS: 0.9% Saline Lock 10 ML Syringe IV (11:51)
[2022-12-04] MEDS: Tuberculin,Purif.prot.deriv. 50 TU/ML Vial 0.1 ML ID (11:55)
--- NOTE | 2022-12-04 14:16 | NURSING ---
AID CAME TO THIS NURSE AND STATED PT HAND WAS BLEEDING. THIS NURSE TO ROOM AND ASKED PT WHAT HAPPENED. PT STATED HE HIT HIS HAND ON THE EDGED OF BED SIDE TABLE. SMALL AREA TO TOP OF HAND. CLEANED AND APPLIED BANDAID. RN AWARE
[2022-12-04 15:07] VITALS: BP 121/50; PULSE 66; RESP 16; TEMP 36.8; O2SAT 98
--- NOTE | 2022-12-04 15:58 | CASEMGMT ---
Social Work Met with patient to complete initial assessment. Pt known to this worker from previous stay. Verified/updated contacts. Discussed code status and MOLST form. Pt confirmed DNR-CCA, no intubation. MOLST placed in Dr folder. Educated to Medicare benefit. Encouraged to contact secondary insurance to ensure copay coverage. Pt stated during this admission, both son's have come into town to assist with moving into [place] for LTC. Pt has no local support. SW to assist with DC planning. Sheila Sloan, TIN POT OPERATOR HARD TILE SETTER
--- NOTE | 2022-12-04 16:02 | CASEMGMT ---
Both son's live out of state and cannot provide copies of advanced directives. Sheila Sloan, RECEIVER DISPATCHER APPLICATION SUPPORT DEVELOPER
[2022-12-04] MEDS: BALSALAZIDE DISODIUM 750 MG CAPSULE 2250 MG PO (17:45)
[2022-12-04] MEDS: Atorvastatin Calcium 40 MG Tablet PO (20:11)
[2022-12-04 23:00] VITALS: PULSE 73; RESP 16; O2SAT 98
[2022-12-05] MEDS: BALSALAZIDE DISODIUM 750 MG CAPSULE 2250 MG PO ×2 (05:03→17:30)
[2022-12-05] MEDS: Levothyroxine 75 MCG Tablet PO (05:03)
[2022-12-05] MEDS: Vitamin B Comp W-C Capsule 1 CAP PO (05:03)
[2022-12-05] MEDS: Amiodarone 200 MG Tablet 100 MG PO (05:06)
[2022-12-05] MEDS: Acetaminophen 500 MG Tablet 1000 MG PO ×2 (05:16→14:46)
[2022-12-05 05:52] LABS: Absolute Lymphocyte Count 0.52 X10^3/uL (0.83-4.51); Basophil# 0.01 X10^3/uL; Basophil% 0.1 % (0-1); Eosinophil# 0.06 X10^3/uL; Eosinophils% 0.8 % (0-5); Hematocrit 27.8 % (40-54); Hemoglobin 8.8 g/dL (13.0-16.5); Lymphocyte # 0.52 X10^3/ul (0.83-4.51); Lymphocyte % 7.2 % (19-41); Mean Corp Hgb Conc 31.7 g/dL (32-36); Mean Corpuscular Hgb 34.2 pg (27.0-32.0); Mean Corpuscular Volume 108.2 fL (80-94); Mean Platelet Vol. 11.1 fl (6.2-12.0); Monocyte# 0.51 X10^3/uL; NRBC Flagged by Analyzer 0 % (0-5); Neutrophil # 6.03 X10^3/uL (2.7-7.7); Neutrophil % 83.1 % (47-70); POSITIVE DIFFERENTIAL YES; Platelet Count 105 K/mm3 (150-450); RBC Distribution Width CV 15.9 % (11.6-14.6); RBC Distribution Width SD 62.9 fl (35.1-43.9); Red Blood Count 2.57 M/mm3 (4.6-6.2); White Blood Count 7.3 K/mm3 (4.4-11.0)
[2022-12-05 05:55] LABS: Differential Indicated SCAN CRITERIA MET
[2022-12-05 06:34] LABS: Anisocytosis 2+; Differential Comment SCANNED; Hypochromasia RARE; Macrocytosis 2+
[2022-12-05 08:57] VITALS: BP 123/46; PULSE 67; O2SAT 98
[2022-12-05] MEDS: Ferrous Sulfate 325 MG Tablet PO (09:02)
[2022-12-05] MEDS: Carvedilol 3.125 MG TABLET PO ×2 (09:02→21:54)
[2022-12-05] MEDS: 0.9% Saline Lock 10 ML Syringe IV ×2 (10:46→12:11)
[2022-12-05 10:52] VITALS: PULSE 64; O2SAT 100
[2022-12-05] MEDS: traMADol 50 MG Tablet PO ×2 (11:32→21:56)
[2022-12-05 14:30] VITALS: BP 121/52; PULSE 64; RESP 14; TEMP 36.3; O2SAT 100
--- NOTE | 2022-12-05 15:22 | CHAPLAIN ---
Type of Pastoral Visit _x__ Initial Visit ___ Follow-up Visit ___ On-call Visit ___ General Patient Visit ___ Spiritual Assessment ___ Family Conference ___ Bereavement ___ Rapid Response ___ Code Blue ___ Other (describe below) Pastoral Care Referral From _x__ Patient ___ Family ___ Nurse ___ Physician ___ Asphalt Worker ___ Auto Bench Mechanic ___ Other (describe below) Sacrament/Intervention _x__ Active listening ___ Anointing ___ Amish ___ Bereavement ___ Communion ___ Alicja exploration ___ ___ Life review _x__ Prayer ___ Reconciliation ___ Sacrament of Sick _x__ Supportive presence ___ Wedding ___ Other (describe below) Pastoral Comments patient had some things to talk about; pt spouse is being moved to [facility] tomorrow and this is huge change for this couple and how life will be in the future; pt has some requests to address with the medical team and he is encouraged to do so; pt accepts a prayer; future visits would be beneficial
--- NOTE | 2022-12-05 17:34 | NURSING ---
Notified Dr. Hale of increased swelling to patient's BL LEs, feet, and hands. New orders for Bumex entered by Dr. Hale.
[2022-12-05 18:15] VITALS: BP 136/56; PULSE 68
[2022-12-05] MEDS: Bumetanide 0.5 MG Tablet 1 MG PO (18:16)
[2022-12-05] MEDS: Atorvastatin Calcium 40 MG Tablet PO (21:53)
[2022-12-06] MEDS: traMADol 50 MG Tablet PO ×3 (05:39→21:29)
[2022-12-06] MEDS: BALSALAZIDE DISODIUM 750 MG CAPSULE 2250 MG PO ×2 (05:39→17:57)
[2022-12-06] MEDS: Senna/Docusate Sodium 1 Tablet PO (05:40)
[2022-12-06] MEDS: Vitamin B Comp W-C Capsule 1 CAP PO (05:40)
[2022-12-06] MEDS: Levothyroxine 75 MCG Tablet PO (05:40)
[2022-12-06] MEDS: Bumetanide 0.5 MG Tablet 1 MG PO (05:40)
[2022-12-06] MEDS: Amiodarone 200 MG Tablet 100 MG PO (05:44)
[2022-12-06 06:29] LABS: ALB/GLOB Ratio 0.7 RATIO (0.9-2.4); AST(SGOT) 51 U/L (15-37); Alanine Aminotransfer ALT/SGPT 78 U/L (16-61); Albumin, Serum 2.6 g/dL (3.2-5.0); Alkaline Phosphatase 159 U/L (45-117); Anion Gap 7 (5-15); BUN 74 mg/dL (7-18); BUN/Creat Ratio 30.1 RATIO (10-20); Calcium,Total 9.3 mg/dL (8.5-10.1); Chloride 109 mmol/L (98-107); Creatinine, Serum 2.46 mg/dL (0.70-1.30); EST Glomerular Filtration Rate 27 mL/min (>60); Est Glom Filt Rate - Afr Amer 33 mL/min (>60); Estimated Creatinine Clearance 24.32 ml/min; Globulin 3.7 g/dL (2.2-4.2); Glucose 116 mg/dL (74-106); Potassium 4.5 mmol/L (3.5-5.1); Protein, Total 6.3 g/dL (6.4-8.2); Sodium Level 139 mmol/L (136-145)
[2022-12-06] MEDS: Aspirin E.C. 81 MG Tablet PO (08:03)
[2022-12-06] MEDS: Ferrous Sulfate 325 MG Tablet PO (08:03)
[2022-12-06] MEDS: Carvedilol 3.125 MG TABLET PO ×2 (08:04→21:30)
[2022-12-06] MEDS: Acetaminophen 500 MG Tablet 1000 MG PO ×2 (08:06→16:34)
[2022-12-06] MEDS: 0.9% Saline Lock 10 ML Syringe IV (09:59)
--- NOTE | 2022-12-06 14:40 | RAD_ITS ---
EXAM: XR LUMBOSACRAL SPINE, 2 OR 3 VIEWS CLINICAL INDICATION: sacral b/l pain TECHNIQUE: Frontal and lateral views of the lumbar spine and sacrum. COMPARISON: No relevant prior studies available. FINDINGS: VERTEBRAE: There is compression deformity of L1 is seen on a previous chest x-ray dated 08/14/2021. No spondylolisthesis. Preservation of the normal lumbar lordosis. No significant facet arthropathy. DISC SPACES: No acute findings. Disc spaces are maintained. GASTROINTESTINAL TRACT: Unremarkable as visualized. Included bowel gas pattern is non-obstructive. RAD/Lumbar Spine 2 or 3 Views IMPRESSION: No acute osseous abnormalities. There is an old L1 compression deformity. Electronically Signed: Shubham Norton MD at 16:11 EDT ,
[2022-12-06 16:00] VITALS: BP 115/53; PULSE 62; RESP 14; TEMP 36.1; O2SAT 99
[2022-12-06] MEDS: Atorvastatin Calcium 40 MG Tablet PO (21:30)
[2022-12-07] MEDS: BALSALAZIDE DISODIUM 750 MG CAPSULE 2250 MG PO ×2 (05:27→16:46)
[2022-12-07] MEDS: Senna/Docusate Sodium 1 Tablet PO (05:28)
[2022-12-07] MEDS: Vitamin B Comp W-C Capsule 1 CAP PO (05:28)
[2022-12-07] MEDS: Levothyroxine 75 MCG Tablet PO (05:28)
[2022-12-07] MEDS: Bumetanide 0.5 MG Tablet 1 MG PO (05:28)
[2022-12-07] MEDS: Amiodarone 200 MG Tablet 100 MG PO (05:32)
[2022-12-07] MEDS: Carvedilol 3.125 MG TABLET PO ×2 (08:02→20:19)
[2022-12-07] MEDS: Aspirin E.C. 81 MG Tablet PO (08:03)
[2022-12-07] MEDS: Ferrous Sulfate 325 MG Tablet PO (08:04)
[2022-12-07] MEDS: traMADol 50 MG Tablet PO ×3 (08:04→23:19)
[2022-12-07] MEDS: Acetaminophen 500 MG Tablet 1000 MG PO ×3 (08:04→23:19)
[2022-12-07 13:31] VITALS: BP 91/43; PULSE 61; RESP 12; TEMP 36.8; O2SAT 97
[2022-12-07] MEDS: Atorvastatin Calcium 40 MG Tablet PO (20:19)
[2022-12-07 20:30] VITALS: O2SAT 96
[2022-12-08] MEDS: Bumetanide 0.5 MG Tablet 1 MG PO (05:36)
[2022-12-08] MEDS: Levothyroxine 75 MCG Tablet PO (05:37)
[2022-12-08] MEDS: BALSALAZIDE DISODIUM 750 MG CAPSULE 2250 MG PO ×2 (05:37→17:18)
[2022-12-08] MEDS: Vitamin B Comp W-C Capsule 1 CAP PO (05:37)
[2022-12-08] MEDS: Senna/Docusate Sodium 1 Tablet PO (05:37)
[2022-12-08] MEDS: traMADol 50 MG Tablet PO ×2 (05:38→19:01)
[2022-12-08] MEDS: Acetaminophen 500 MG Tablet 1000 MG PO ×2 (05:39→19:02)
[2022-12-08] MEDS: Amiodarone 200 MG Tablet 100 MG PO (05:40)
[2022-12-08] MEDS: Aspirin E.C. 81 MG Tablet PO (08:00)
[2022-12-08] MEDS: Carvedilol 3.125 MG TABLET PO ×2 (08:00→20:44)
[2022-12-08] MEDS: Ferrous Sulfate 325 MG Tablet PO (08:00)
[2022-12-08 08:03] VITALS: BP 136/60; PULSE 75
[2022-12-08 09:57] VITALS: PULSE 57; O2SAT 96
--- NOTE | 2022-12-08 11:55 | NURSING ---
Pts Left foot Red Warm Edematous and draining. Dr. Hale updated N.O. for Doxycycline and Keflex for 7 days. Pt C/O of pain to lower back and unable to sleep in bed. Dr. Hale updated and N.O. for Oxycodone 5 mgs q4hrs.
[2022-12-08] MEDS: Cephalexin 500 MG Capsule PO ×3 (13:06→23:52)
[2022-12-08 14:20] VITALS: BP 122/47; PULSE 59; RESP 16; TEMP 36.1; O2SAT 99
[2022-12-08] MEDS: oxyCODONE 5 MG Tablet PO ×2 (15:32→20:44)
[2022-12-08] MEDS: Doxycycline 100 MG CAPSULE PO (17:18)
[2022-12-08] MEDS: 0.9% Saline Lock 10 ML Syringe IV (17:23)
[2022-12-08] MEDS: Atorvastatin Calcium 40 MG Tablet PO (20:44)
--- NOTE | 2022-12-08 20:48 | NURSING ---
Pt requested medication at this time.
[2022-12-09] MEDS: Bumetanide 0.5 MG Tablet 1 MG PO ×2 (05:29→18:25)
[2022-12-09] MEDS: Vitamin B Comp W-C Capsule 1 CAP PO ×2 (05:30)
[2022-12-09] MEDS: Senna/Docusate Sodium 1 Tablet PO (05:31)
[2022-12-09] MEDS: Levothyroxine 75 MCG Tablet PO (05:31)
[2022-12-09] MEDS: Doxycycline 100 MG CAPSULE PO ×2 (05:32→18:23)
[2022-12-09] MEDS: BALSALAZIDE DISODIUM 750 MG CAPSULE 2250 MG PO ×2 (05:32→18:24)
[2022-12-09] MEDS: Amiodarone 200 MG Tablet 100 MG PO (05:35)
[2022-12-09] MEDS: Cephalexin 500 MG Capsule PO ×3 (05:36→18:26)
[2022-12-09] MEDS: Acetaminophen 500 MG Tablet 1000 MG PO ×2 (09:07→18:24)
[2022-12-09] MEDS: Aspirin E.C. 81 MG Tablet PO (09:08)
[2022-12-09] MEDS: Carvedilol 3.125 MG TABLET PO ×2 (09:08→20:18)
[2022-12-09] MEDS: Ferrous Sulfate 325 MG Tablet PO (09:09)
[2022-12-09 09:22] VITALS: BP 138/51; PULSE 73
[2022-12-09] MEDS: Menthol/Lanolin/Calamine/Znox 113 GM Tube 1 APPLIC TOPICAL ×2 (13:43→18:23)
[2022-12-09] MEDS: Nystatin Powder 15gm Bottle 1 APPLIC TOPICAL ×2 (13:44→18:23)
[2022-12-09] MEDS: oxyCODONE 5 MG Tablet PO (13:48)
[2022-12-09] MEDS: 0.9% Saline Lock 10 ML Syringe IV (13:49)
--- NOTE | 2022-12-09 14:14 | NURSING ---
EDUCATED PT ON KEEPING HIS LEGS UP DUE TO SWELLING AND DRAINAGE. PT STATED I CAN BUT IT HURTS. THIS NURSE STATED I COULD GET PT PAIN MEDS. PT AGREED AND LET THIS NURSE PUT HIS LEGS UP AND PRN PAIN MED GIVEN. DINH LOWER LEGS WASHED AND APPLIED NEW DRESSINGS AND STARR WRAPS. LEGS HAD LARGE AMOUNT OF YELLOW/CLEAR DRAINAGE. RN AWARE
--- NOTE | 2022-12-09 14:20 | NURSING ---
Offered covid booster, education on vaccine provided. Patient refuses at this time.
--- NOTE | 2022-12-09 15:09 | PN.RENAL_ITS ---
Subjective Subjective Sitting in chair. States feeling tired after therapy. Also complaining of worsening swelling of both legs. States appetite good with no recent N/V/D. Objective Data Objective Data Vital Signs: Vital Signs Temp Pulse Resp BP Pulse Ox O2 Del Method 97.0 F L 73 16 138/51 H 99 Room Air 12/08/22 14:20 12/09/22 09:22 12/08/22 14:20 12/09/22 09:22 12/08/22 14:20 12/08/22 14:20 Oxygen Delivery Method Room Air Weight: 78.744 kg Body Mass Index (BMI) 24.9 Intake & Output: Intake and Output for Last 24 Hours 12/07/22 12/08/22 12/09/22 23:59 23:59 23:59 Intake Total 1130 / 1130 700 / 700 600 / 600 Balance 1130 / 1130 700 / 700 600 / 600 Lab / Micro Data Result Diagrams: 12/05/22 05:18 12/06/22 05:24 Micro: Microbiology 12/07/22 05:36 Nasal Secretion SARS-CoV-2 Antigen (Rapid) - Final 12/05/22 05:15 Nasal Secretion SARS-CoV-2 Antigen (Rapid) - Final Physical Exam Narrative A&Ox3, No apparent distress LS CTA S1, S2 Abdomen soft, nontender STARR wraps b/l legs with at least 2+pitting edema both legs Assessment & Plan Assessment/Plan (1) Chronic kidney disease (CKD): QUALIFIERS: Chronic kidney disease stage: stage 4 (severe) Qualified Code(s): N18.4 - Chronic kidney disease, stage 4 (severe) (2) Acute kidney injury: PLAN: resolving PLAN: Plan 82-year-old male with history of CKD stage 3/4, iron deficiency anemia, thrombocytopenia and ulcerative colitis admitted for pneumonia.?Nephrology consulted for MYRON superimposed on CKD when patient was in PCU. MYRON on CKD stage 3/4.? Baseline creatinine seems to be around 2.0-2.4mg/dL.? Serum creatinine was 2.44 mg/dL in July 2022.? Creatinine 2.53 on admission, peaked 3.12mg/dL and last serum creatinine 2.46 from 12/06.? No labs today. MYRON was possibly from infection, overdiuresis. Renal function improved to near baseline. No acute or emergent indication for LAND ECONOMIST, potassium and bicarb acceptable, patient is nonoliguric and appears near euvolemic. Encouraged increase solute intake UA showed proteinuria; urine protein creatinine ratio 492 mg/g.? No hematuria.? Albumin 2.6 Previous renal Dopplers were negative for stenosis, renal ultrasound no hydro.? Postvoid bladder scan was negative. Home medications on hold: Lisinopril and chlorthalidone Blood pressures acceptable on carvedilol. Patient was receiving IV Bumex when in PCU, but held due to worsening renal fu nction. Currently on RA.? 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 He is now on oral Bumex 1mg daily. Will increase to twice daily. Labs ordered for a.m. History of iron deficiency anemia and thrombocytopenia. Saw Dr. Mcintyre.? Normal LDH, haptoglobin and CPK level.? History of ulcerative colitis on balsalazide
--- NOTE | 2022-12-09 18:12 | NURSING ---
NEW ORDER FROM DR. PALMA FOR BUMAX 1MG BID. IF PT GETS A RASH TO LET HER KNOW.
[2022-12-09 18:18] VITALS: BP 133/53; PULSE 70; RESP 18; TEMP 37; O2SAT 97
[2022-12-09] MEDS: traMADol 50 MG Tablet PO (18:22)
[2022-12-09 20:00] VITALS: O2SAT 95
[2022-12-09] MEDS: Atorvastatin Calcium 40 MG Tablet PO (20:18)
[2022-12-10] MEDS: oxyCODONE 5 MG Tablet PO ×3 (00:10→20:08)
[2022-12-10] MEDS: Cephalexin 500 MG Capsule PO ×4 (00:10→17:45)
[2022-12-10 03:50] VITALS: BMI 26.2
[2022-12-10] MEDS: Acetaminophen 500 MG Tablet 1000 MG PO ×3 (04:11→20:06)
[2022-12-10] MEDS: traMADol 50 MG Tablet PO (04:12)
[2022-12-10] MEDS: BALSALAZIDE DISODIUM 750 MG CAPSULE 2250 MG PO ×2 (04:12→17:46)
[2022-12-10] MEDS: Doxycycline 100 MG CAPSULE PO ×2 (04:13→17:46)
[2022-12-10] MEDS: Levothyroxine 75 MCG Tablet PO (04:13)
[2022-12-10] MEDS: Bumetanide 0.5 MG Tablet 1 MG PO ×2 (04:13→17:46)
[2022-12-10] MEDS: Nystatin Powder 15gm Bottle 1 APPLIC TOPICAL ×2 (04:17→17:50)
[2022-12-10] MEDS: Menthol/Lanolin/Calamine/Znox 113 GM Tube 1 APPLIC TOPICAL ×2 (04:17→17:50)
[2022-12-10 06:35] LABS: Anion Gap 7 (5-15); BUN 85 mg/dL (7-18); BUN/Creat Ratio 28.6 RATIO (10-20); Calcium,Total 8.7 mg/dL (8.5-10.1); Chloride 103 mmol/L (98-107); Creatinine, Serum 2.97 mg/dL (0.70-1.30); EST Glomerular Filtration Rate 22 mL/min (>60); Est Glom Filt Rate - Afr Amer 26 mL/min (>60); Estimated Creatinine Clearance 20.14 ml/min; Glucose 95 mg/dL (74-106); Magnesium 2.1 mg/dL (1.6-2.6); Potassium 4.4 mmol/L (3.5-5.1); Sodium Level 133 mmol/L (136-145)
[2022-12-10] MEDS: Aspirin E.C. 81 MG Tablet PO (08:36)
[2022-12-10] MEDS: Ferrous Sulfate 325 MG Tablet PO (08:36)
[2022-12-10] MEDS: Carvedilol 3.125 MG TABLET PO ×2 (08:36→20:05)
[2022-12-10] MEDS: Amiodarone 200 MG Tablet 100 MG PO (08:39)
[2022-12-10 08:42] VITALS: BP 128/49; PULSE 67
[2022-12-10 10:27] VITALS: BMI 26.3
--- NOTE | 2022-12-10 10:38 | CASEMGMT ---
Social Work BIMS () and PHQ-9 (11/23) completed for MDS assessment. Sheila Sloan MSW DRY HOUSE ATTENDANT
[2022-12-10 10:40] VITALS: PULSE 59; RESP 18; O2SAT 97
--- NOTE | 2022-12-10 15:50 | NURSING ---
EDUCATED PT MULTIPLE TIMES ON KEEPING LEGS AND FEET UP DUE TO SWELLING,SORES AND DRAINAGE. PT REFUSING STATING HIS HIP AND BACK HURT TO MUCH. ASKED PT IF HE COULD LAY IN BED,PT REFUSED. REMINDED PT HE DOES HAVE PAIN MEDS AND PT STATED I HAVE BEEN TAKING THEM AND ARE NOT DOING ANY GOOD. PT DOES HAVE A K PAD FOR HIS BACK. PT GETTING IRRITATED WITH THIS NURSE SO THIS NURSE LEFT ROOM AND UPDATED RN. PT SLEEPS IN RECLINER ALL THE TIME WITH FEET DOWN. WOUND NURSE CONSULTED. PT ALSO HAS GAINED 10 LBS IN 6 DAYS. NOTE LEFT FOR DR. TRAVIS.
[2022-12-10 16:00] VITALS: BP 154/67; PULSE 70; RESP 16; TEMP 36.7; O2SAT 97
--- NOTE | 2022-12-10 17:16 | RAD_ITS ---
STUDY: X-RAY - PELVIS AND LEFT HIP REASON FOR EXAM: Male, 82 years old. Pain TECHNIQUE: 3 views of the pelvis and hip. COMPARISON: May 11, 2021 FINDINGS: There is a non-specific bowel gas pattern. Normal visualized soft tissue structures. Normal bilateral iliac wings, sacroiliac joints and visualized sacrum. Normal bilateral superior and inferior pubic rami. Normal pubic symphysis. Normal bilateral ischial tuberosities. Avulsion fracture of the greater trochanter with separation of fracture fragments... Normal acetabulum. Normal hip joint. There has been increased separation of fracture fragments since prior exam raising question of tendinous injury which may be further assessed with MRI if indicated. There is however no evidence for acute fracture RAD/HIP, UNI W/ Pelvis 2-3 Views IMPRESSION: Old avulsion fracture of the greater trochanter with increasing separation of fracture fragments. No evidence for acute fracture of the left hip or pelvis Electronically Signed: Dov Abbott MD at 19:04 EDT ,
--- NOTE | 2022-12-10 17:20 | NURSING ---
DO TO UNCONTROLLED PAIN TO LEFT HIP X RAYS ORDERED BY . AND CONSULT IN TO CALL .
--- NOTE | 2022-12-10 19:26 | NURSING ---
CALLED AND UPDATED PT SON. SON VERY THANKFUL AND STATED HE DOES TALK TO HIS DAD OFF AND ON AND DOES HAVE A PLAN OF CARE MEETING TOMORROW.
[2022-12-10] MEDS: Atorvastatin Calcium 40 MG Tablet PO (20:05)
[2022-12-11] MEDS: oxyCODONE 5 MG Tablet PO ×3 (00:29→22:10)
[2022-12-11] MEDS: Cephalexin 500 MG Capsule PO ×5 (00:29→23:51)
[2022-12-11 05:13] VITALS: BMI 25.4
[2022-12-11 05:44] LABS: Absolute Lymphocyte Count 1.23 X10^3/uL (0.83-4.51); Absolute Neutrophil Count 5.5 X10^3/uL (2.0-7.7); Basophil# 0.04 X10^3/uL; Basophil% 0.5 % (0-1); Eosinophil# 0.12 X10^3/uL; Eosinophils% 1.6 % (0-5); Hematocrit 26.3 % (40-54); Hemoglobin 8.6 g/dL (13.0-16.5); Lymphocyte # 1.23 X10^3/ul (0.83-4.51); Lymphocyte % 16.2 % (19-41); Mean Corp Hgb Conc 32.7 g/dL (32-36); Mean Corpuscular Hgb 34.7 pg (27.0-32.0); Monocyte# 0.66 X10^3/uL; Monocyte% 8.7 % (0-10); NRBC Flagged by Analyzer 0 % (0-5); Neutrophil # 5.48 X10^3/uL (2.7-7.7); Neutrophil % 72.1 % (47-70); Platelet Count 227 K/mm3 (150-450); RBC Distribution Width CV 14.3 % (11.6-14.6); RBC Distribution Width SD 56.1 fl (35.1-43.9); Red Blood Count 2.48 M/mm3 (4.6-6.2); White Blood Count 7.6 K/mm3 (4.4-11.0)
[2022-12-11 06:14] LABS: Anion Gap 8 (5-15); BUN 85 mg/dL (7-18); BUN/Creat Ratio 29.8 RATIO (10-20); Calcium,Total 9.2 mg/dL (8.5-10.1); Chloride 103 mmol/L (98-107); Creatinine, Serum 2.85 mg/dL (0.70-1.30); EST Glomerular Filtration Rate 23 mL/min (>60); Est Glom Filt Rate - Afr Amer 28 mL/min (>60); Estimated Creatinine Clearance 20.99 ml/min; Glucose 94 mg/dL (74-106); Potassium 4.5 mmol/L (3.5-5.1); Sodium Level 134 mmol/L (136-145)
[2022-12-11] MEDS: Levothyroxine 75 MCG Tablet PO (06:58)
[2022-12-11] MEDS: Doxycycline 100 MG CAPSULE PO ×2 (06:59→17:48)
[2022-12-11] MEDS: BALSALAZIDE DISODIUM 750 MG CAPSULE 2250 MG PO ×2 (07:02→17:48)
[2022-12-11] MEDS: Vitamin B Comp W-C Capsule 1 CAP PO (07:02)
[2022-12-11] MEDS: Nystatin Powder 15gm Bottle 1 APPLIC TOPICAL ×2 (07:03→17:50)
[2022-12-11] MEDS: Bumetanide 0.5 MG Tablet 1 MG PO ×2 (07:03→17:48)
[2022-12-11] MEDS: Acetaminophen 500 MG Tablet 1000 MG PO (07:03)
[2022-12-11] MEDS: Menthol/Lanolin/Calamine/Znox 113 GM Tube 1 APPLIC TOPICAL ×2 (07:04→17:51)
[2022-12-11] MEDS: traMADol 50 MG Tablet PO (08:50)
[2022-12-11] MEDS: Amiodarone 200 MG Tablet 100 MG PO (08:50)
[2022-12-11] MEDS: Ferrous Sulfate 325 MG Tablet PO (08:51)
[2022-12-11] MEDS: Aspirin E.C. 81 MG Tablet PO (08:51)
--- NOTE | 2022-12-11 09:51 | CASEMGMT ---
Social Work IDT met with patient and two son's conference call for care plan meeting. Discussed patient's progress in PT/OT/SN. Educated to Medicare benefit. Encouraged to contact secondary insurance to ensure copay coverage. Broached topic of having alternate DC plan since pt is home alone and two son's live out of state. Pt is still needing assistance with all ADL and IADL tasks, pt is very painful which is limiting as well. SW educated to options of home with 24/7, AL or SNF and the financial liability vs Medicaid. Pt states he does not think he is eligible for EDUARDO. SW answered son's questions about determining LOC needed at DC. SW to place referrals and make recommendations, but the facilities would determine AL vs SNF. Son's noted moved to [place] and pt may be interested in that facility. SW offered to assist with ongoing DC planning. Sheila Sloan, MULTIPLE CUT OFF SAW OPERATOR TARRING MACHINE OPERATOR
[2022-12-11] MEDS: MethylPREDNISolone DosePak 4 MG BOX PO ×3 (12:14→22:22)
[2022-12-11] MEDS: Tuberculin,Purif.prot.deriv. 50 TU/ML Vial 0.1 ML ID (12:18)
--- NOTE | 2022-12-11 15:30 | WOUNDNOTE ---
wound photo: left foot
--- NOTE | 2022-12-11 15:31 | WOUNDNOTE ---
wound photo: left lower leg
--- NOTE | 2022-12-11 15:31 | WOUNDNOTE ---
wound photo: left heel
--- NOTE | 2022-12-11 15:32 | WOUNDNOTE ---
wound photo: right foot/lower leg
[2022-12-11 15:36] VITALS: BP 141/63; PULSE 75; RESP 14; TEMP 36.2; O2SAT 99
[2022-12-11] MEDS: Juven (unflavored) Packet 1 PACKET PO (17:49)
[2022-12-11 20:15] VITALS: PULSE 82; RESP 18; O2SAT 97
[2022-12-11] MEDS: Carvedilol 3.125 MG TABLET PO (20:20)
[2022-12-11] MEDS: Atorvastatin Calcium 40 MG Tablet PO (22:10)
[2022-12-12 05:35] VITALS: BMI 25.4
[2022-12-12] MEDS: traMADol 50 MG Tablet PO ×2 (05:57→17:40)
[2022-12-12] MEDS: Vitamin B Comp W-C Capsule 1 CAP PO (05:58)
[2022-12-12] MEDS: BALSALAZIDE DISODIUM 750 MG CAPSULE 2250 MG PO ×2 (05:58→17:38)
[2022-12-12] MEDS: Doxycycline 100 MG CAPSULE PO ×2 (05:58→17:37)
[2022-12-12] MEDS: Cephalexin 500 MG Capsule PO ×3 (05:58→17:39)
[2022-12-12] MEDS: Levothyroxine 75 MCG Tablet PO (05:58)
[2022-12-12] MEDS: Bumetanide 0.5 MG Tablet 1 MG PO ×2 (05:59→17:39)
[2022-12-12] MEDS: Nystatin Powder 15gm Bottle 1 APPLIC TOPICAL ×2 (06:03→17:43)
[2022-12-12] MEDS: Menthol/Lanolin/Calamine/Znox 113 GM Tube 1 APPLIC TOPICAL ×2 (06:03→17:43)
[2022-12-12 08:55] VITALS: BP 100/43; PULSE 72; RESP 19; TEMP 36.9; O2SAT 99
[2022-12-12] MEDS: Amiodarone 200 MG Tablet 100 MG PO (08:57)
[2022-12-12] MEDS: Aspirin E.C. 81 MG Tablet PO (08:58)
[2022-12-12] MEDS: Ferrous Sulfate 325 MG Tablet PO (08:58)
[2022-12-12] MEDS: Juven (unflavored) Packet 1 PACKET PO ×2 (08:58→17:33)
[2022-12-12] MEDS: MethylPREDNISolone DosePak 4 MG BOX PO ×4 (08:59→21:31)
[2022-12-12] MEDS: oxyCODONE 5 MG Tablet PO (09:02)
[2022-12-12 10:00] VITALS: PULSE 65; RESP 16; O2SAT 98
--- NOTE | 2022-12-12 14:00 | PCM.PN.REN ---
Subjective Subjective Sitting in chair. Denies any complaints. Reports breathing has improved. Patient also states he feels swelling has improved. Denies any issues with urination. Objective Data Objective Data Vital Signs: Vital Signs Temp Pulse Resp BP Pulse Ox O2 Del Method 98.4 F 72 19 H 100/43 L 99 Room Air 12/12/22 08:55 12/12/22 08:55 12/12/22 08:55 12/12/22 08:55 12/12/22 08:55 12/12/22 08:55 Oxygen Delivery Method Room Air Weight: 80.484 kg Body Mass Index (BMI) 25.4 Intake & Output: Intake and Output for Last 24 Hours 12/10/22 12/11/22 12/12/22 23:59 23:59 23:59 Intake Total 860 / 860 960 / 960 720 / 720 Output Total 300 / 725 425 / 425 Balance 560 / 135 535 / 535 720 / 720 Lab / Micro Data Result Diagrams: 12/11/22 05:15 12/11/22 05:15 Micro: Microbiology 12/07/22 05:36 Nasal Secretion SARS-CoV-2 Antigen (Rapid) - Final 12/05/22 05:15 Nasal Secretion SARS-CoV-2 Antigen (Rapid) - Final Physical Exam Narrative Alert and oriented x3, no apparent distress S1-S2, RRR Lung sounds clear anteriorly and posteriorly. No wheezes, rhonchi or rales noted Abdomen soft, nontender, positive bowel sounds Bilateral legs with Manish wraps intact. Edema noted to bilateral lower legs. No pitting edema noted bilateral thighs. Assessment & Plan Assessment/Plan (1) Chronic kidney disease (CKD): QUALIFIERS: Chronic kidney disease stage: stage 4 (severe) Qualified Code(s): N18.4 - Chronic kidney disease, stage 4 (severe) (2) Acute kidney injury: PLAN: Plan 82-year-old male with history of CKD stage 3/4, iron deficiency anemia, thrombocytopenia and ulcerative colitis admitted for pneumonia.?Nephrology consulted for MYRON superimposed on CKD when patient was in PCU. Patient currently in TCU for therapy. MYRON on CKD stage 3/4.? Baseline creatinine seems to be around 2.0-2.4mg/dL.? Serum creatinine was 2.44 mg/dL in July 2022.? Creatinine 2.53 on admission, peaked 3.12mg/dL and last serum creatinine 2.85 from 12/11.? No labs today.? MYRON was possibly from infection, overdiuresis.? Renal function improved to near baseline. No acute or emergent indication for RAILWAY TRACTION LINE WORKER, potassium and bicarb acceptable, patient is nonoliguric and appears near euvolemic. Encouraged increase solute intake UA showed proteinuria; urine protein creatinine ratio 492 mg/g.? No hematuria.? Albumin 2.6 Previous renal Dopplers were negative for stenosis, renal ultrasound no hydro.? Postvoid bladder scan was negative. Home medications on hold: Lisinopril and chlorthalidone Blood pressures acceptable on carvedilol. Patient was receiving IV Bumex when in PCU, but held due to worsening renal function. Currently on RA.? 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 Bumex increased to twice daily. Today per patient edema improved. Will monitor labs periodically. History of iron deficiency anemia and thrombocytopenia. Saw Dr. Mcintyre.? Normal LDH, haptoglobin and CPK level.? History of ulcerative colitis on balsalazide
--- NOTE | 2022-12-12 15:04 | CHAPLAIN ---
Type of Pastoral Visit ___ Initial Visit ___ Follow-up Visit ___ On-call Visit ___ General Patient Visit ___ Spiritual Assessment ___ Family Conference ___ Bereavement ___ Rapid Response ___ Code Blue ___ Other (describe below) Pastoral Care Referral From ___ Patient ___ Family ___ Nurse ___ Physician ___ Water Supply Engineer ___ Manager Information ___ Other (describe below) Sacrament/Intervention ___ Active listening ___ Anointing ___ Latter-Day ___ Bereavement ___ Communion ___ Alicja exploration ___ ___ Life review ___ Prayer ___ Reconciliation ___ Sacrament of Sick ___ Supportive presence ___ Wedding ___ Other (describe below) Pastoral Comments two attempts made to see pt in a follow up visit but he was sleeping
[2022-12-12] MEDS: Carvedilol 3.125 MG TABLET PO (21:29)
[2022-12-12] MEDS: Atorvastatin Calcium 40 MG Tablet PO (21:31)
[2022-12-13] MEDS: Cephalexin 500 MG Capsule PO ×2 (01:26→05:24)
[2022-12-13 05:08] VITALS: BMI 25.0
[2022-12-13] MEDS: Bumetanide 0.5 MG Tablet 1 MG PO ×2 (05:24→17:39)
[2022-12-13] MEDS: Vitamin B Comp W-C Capsule 1 CAP PO (05:24)
[2022-12-13] MEDS: Doxycycline 100 MG CAPSULE PO ×2 (05:25→17:39)
[2022-12-13] MEDS: BALSALAZIDE DISODIUM 750 MG CAPSULE 2250 MG PO ×2 (05:25→17:38)
[2022-12-13] MEDS: Levothyroxine 75 MCG Tablet PO (05:25)
[2022-12-13] MEDS: Menthol/Lanolin/Calamine/Znox 113 GM Tube 1 APPLIC TOPICAL ×2 (05:29→17:43)
[2022-12-13] MEDS: Nystatin Powder 15gm Bottle 1 APPLIC TOPICAL ×2 (05:29→17:43)
[2022-12-13] MEDS: Amiodarone 200 MG Tablet 100 MG PO (08:09)
[2022-12-13] MEDS: Aspirin E.C. 81 MG Tablet PO (08:10)
[2022-12-13] MEDS: Carvedilol 3.125 MG TABLET PO ×2 (08:10→20:49)
[2022-12-13] MEDS: Juven (unflavored) Packet 1 PACKET PO ×2 (08:11→17:36)
[2022-12-13] MEDS: Ferrous Sulfate 325 MG Tablet PO (08:11)
[2022-12-13] MEDS: traMADol 50 MG Tablet PO (08:12)
[2022-12-13] MEDS: MethylPREDNISolone DosePak 4 MG BOX PO ×4 (08:12→20:48)
[2022-12-13] MEDS: Cephalexin 250 MG Capsule PO ×2 (12:43→20:49)
[2022-12-13 16:00] VITALS: BP 119/51; PULSE 70; RESP 18; TEMP 36.9; O2SAT 98
[2022-12-13] MEDS: Atorvastatin Calcium 40 MG Tablet PO (20:49)
[2022-12-14] MEDS: Vitamin B Comp W-C Capsule 1 CAP PO (05:34)
[2022-12-14] MEDS: Menthol/Lanolin/Calamine/Znox 113 GM Tube 1 APPLIC TOPICAL ×2 (05:35→16:57)
[2022-12-14] MEDS: BALSALAZIDE DISODIUM 750 MG CAPSULE 2250 MG PO ×2 (05:35→16:57)
[2022-12-14] MEDS: Doxycycline 100 MG CAPSULE PO ×2 (05:35→16:56)
[2022-12-14] MEDS: Cephalexin 250 MG Capsule PO ×3 (05:35→21:31)
[2022-12-14] MEDS: Levothyroxine 75 MCG Tablet PO (05:35)
[2022-12-14] MEDS: Bumetanide 0.5 MG Tablet 1 MG PO ×2 (05:35→16:56)
[2022-12-14] MEDS: Nystatin Powder 15gm Bottle 1 APPLIC TOPICAL ×2 (05:36→16:57)
[2022-12-14] MEDS: Acetaminophen 500 MG Tablet 1000 MG PO (05:37)
[2022-12-14 06:00] VITALS: BMI 25.3
[2022-12-14 09:04] VITALS: BP 126/43; PULSE 71; RESP 17; TEMP 36.6; O2SAT 97
[2022-12-14] MEDS: Amiodarone 200 MG Tablet 100 MG PO (09:09)
[2022-12-14] MEDS: Aspirin E.C. 81 MG Tablet PO (09:10)
[2022-12-14] MEDS: Carvedilol 3.125 MG TABLET PO ×2 (09:10→21:32)
[2022-12-14] MEDS: Juven (unflavored) Packet 1 PACKET PO ×2 (09:10→16:56)
[2022-12-14] MEDS: MethylPREDNISolone DosePak 4 MG BOX PO ×3 (09:10→21:32)
[2022-12-14] MEDS: Ferrous Sulfate 325 MG Tablet PO (09:10)
[2022-12-14 11:34] VITALS: PULSE 68; O2SAT 96
[2022-12-14 15:14] VITALS: BP 121/56; PULSE 69; RESP 16; TEMP 36.3; O2SAT 97
[2022-12-14] MEDS: oxyCODONE 5 MG Tablet PO ×2 (17:04→21:30)
[2022-12-14 21:25] VITALS: BP 105/69; PULSE 69
[2022-12-14] MEDS: Atorvastatin Calcium 40 MG Tablet PO (21:32)
[2022-12-15 05:28] VITALS: BMI 25.0
[2022-12-15] MEDS: Doxycycline 100 MG CAPSULE PO ×2 (05:45→18:14)
[2022-12-15] MEDS: Vitamin B Comp W-C Capsule 1 CAP PO (05:46)
[2022-12-15] MEDS: Bumetanide 0.5 MG Tablet 1 MG PO ×2 (05:47→18:14)
[2022-12-15] MEDS: Levothyroxine 75 MCG Tablet PO (05:48)
[2022-12-15] MEDS: BALSALAZIDE DISODIUM 750 MG CAPSULE 2250 MG PO ×2 (05:48→18:14)
[2022-12-15] MEDS: Cephalexin 250 MG Capsule PO ×3 (05:50→21:16)
[2022-12-15] MEDS: Menthol/Lanolin/Calamine/Znox 113 GM Tube 1 APPLIC TOPICAL ×2 (05:51→18:15)
[2022-12-15] MEDS: Nystatin Powder 15gm Bottle 1 APPLIC TOPICAL ×2 (05:51→18:14)
[2022-12-15 08:13] VITALS: BP 121/53; PULSE 82; RESP 17; TEMP 36.3; O2SAT 96
[2022-12-15] MEDS: Amiodarone 200 MG Tablet 100 MG PO (08:17)
[2022-12-15] MEDS: Juven (unflavored) Packet 1 PACKET PO ×2 (08:18→18:14)
[2022-12-15] MEDS: Carvedilol 3.125 MG TABLET PO ×2 (08:18→21:16)
[2022-12-15] MEDS: MethylPREDNISolone DosePak 4 MG BOX PO ×2 (08:18→21:16)
[2022-12-15] MEDS: Aspirin E.C. 81 MG Tablet PO (08:18)
[2022-12-15] MEDS: Ferrous Sulfate 325 MG Tablet PO (08:18)
[2022-12-15] MEDS: oxyCODONE 5 MG Tablet PO ×2 (14:58→18:57)
--- NOTE | 2022-12-15 16:19 | NURSING ---
Dressings changed to BL LEs as ordered. Patient tolerated task well. Call light within reach.
[2022-12-15 18:10] VITALS: BP 118/48; PULSE 78
[2022-12-15] MEDS: Atorvastatin Calcium 40 MG Tablet PO (21:16)
[2022-12-16 04:57] VITALS: BMI 24.0
[2022-12-16] MEDS: Senna/Docusate Sodium 1 Tablet PO (05:52)
[2022-12-16] MEDS: BALSALAZIDE DISODIUM 750 MG CAPSULE 2250 MG PO ×2 (05:52→17:53)
[2022-12-16] MEDS: Bumetanide 0.5 MG Tablet 1 MG PO (05:52)
[2022-12-16] MEDS: Levothyroxine 75 MCG Tablet PO (05:52)
[2022-12-16] MEDS: Vitamin B Comp W-C Capsule 1 CAP PO (05:52)
[2022-12-16] MEDS: Menthol/Lanolin/Calamine/Znox 113 GM Tube 1 APPLIC TOPICAL ×2 (05:55→17:54)
[2022-12-16] MEDS: Nystatin Powder 15gm Bottle 1 APPLIC TOPICAL ×2 (05:56→17:54)
[2022-12-16 06:11] LABS: Anion Gap 7 (5-15); BUN 139 mg/dL (7-18); BUN/Creat Ratio 46.5 RATIO (10-20); Calcium,Total 9.3 mg/dL (8.5-10.1); Chloride 101 mmol/L (98-107); Creatinine, Serum 2.99 mg/dL (0.70-1.30); EST Glomerular Filtration Rate 22 mL/min (>60); Est Glom Filt Rate - Afr Amer 26 mL/min (>60); Estimated Creatinine Clearance 20.01 ml/min; Glucose 121 mg/dL (74-106); Magnesium 2.1 mg/dL (1.6-2.6); Potassium 4.7 mmol/L (3.5-5.1); Sodium Level 137 mmol/L (136-145)
[2022-12-16] MEDS: Ferrous Sulfate 325 MG Tablet PO (08:35)
[2022-12-16] MEDS: Aspirin E.C. 81 MG Tablet PO (08:35)
[2022-12-16] MEDS: Carvedilol 3.125 MG TABLET PO ×2 (08:35→19:47)
[2022-12-16] MEDS: Amiodarone 200 MG Tablet 100 MG PO (08:35)
[2022-12-16] MEDS: Juven (unflavored) Packet 1 PACKET PO ×2 (08:36→17:53)
[2022-12-16 08:41] VITALS: BP 125/49; PULSE 73
--- NOTE | 2022-12-16 10:17 | PCM.PN.REN ---
Documented by User: TESSA Nava 12/16/22 10:21 Subjective Subjective Resting in bed. States having multiple episodes loose bm. Denies any Nausea or vomiting. Objective Data Objective Data Vital Signs: Vital Signs Temp Pulse Resp BP Pulse Ox O2 Del Method 97.4 F L 73 17 125/49 H 96 Room Air 12/15/22 08:13 12/16/22 08:41 12/15/22 08:13 12/16/22 08:41 12/15/22 08:13 12/15/22 21:20 Oxygen Delivery Method Room Air Weight: 76.113 kg Body Mass Index (BMI) 24.0 Intake & Output: Intake and Output for Last 24 Hours 12/14/22 12/15/22 12/16/22 23:59 23:59 23:59 Intake Total 1320 / 1320 1360 / 1360 840 / 840 Balance 1320 / 1320 1360 / 1360 840 / 840 Lab / Micro Data Result Diagrams: 12/11/22 05:15 12/16/22 05:14 Labs: Laboratory Results - last 24 hr 12/16/22 05:14: Sodium 137, Potassium 4.7, Chloride 101, Carbon Dioxide 29.0, Anion Gap 7, BUN 139 H*, Creatinine 2.99 H, Estim Creat Clear Calc 20.01, Est GFR (MDRD) Af Amer 26 L, Est GFR (MDRD) Non-Af 22 L, BUN/Creatinine Ratio 46.5 H, Glucose 121 H, Calcium 9.3, Magnesium 2.1 Micro: Microbiology 12/07/22 05:36 Nasal Secretion SARS-CoV-2 Antigen (Rapid) - Final 12/05/22 05:15 Nasal Secretion SARS-CoV-2 Antigen (Rapid) - Final Physical Exam Narrative Alert and oriented x3, no apparent distress S1-S2, RRR Lung sounds clear anteriorly and posteriorly. No wheezes, rhonchi or rales noted Abdomen soft, nontender, positive bowel sounds Bilateral legs with Manish wraps intact. Edema noted to bilateral lower legs. No pitting edema noted bilateral thighs. Assessment & Plan Assessment/Plan (1) Acute kidney injury: PLAN: Plan 82-year-old male with history of CKD stage 3/4, iron deficiency anemia, thrombocytopenia and ulcerative colitis admitted for pneumonia.?Nephrology consulted for MYRON superimposed on CKD when patient was in PCU. Patient currently in TCU for therapy. MYRON on CKD stage 3/4.? Baseline creatinine seems to be around 2.0-2.4mg/dL.? Serum creatinine was 2.44 mg/dL in July 2022.? Creatinine 2.53 on admission, peaked 3.12mg/dL and last serum creatinine 2.85 from 12/11.? MYRON was possibly from infection, overdiuresis.? Renal function improved to near baseline. 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 Encouraged increase solute intake UA showed proteinuria; urine protein creatinine ratio 492 mg/g.? No hematuria.? Albumin 2.6 Previous renal Dopplers were negative for stenosis, renal ultrasound no hydro.? Postvoid bladder scan was negative. Home medications on hold: Lisinopril and chlorthalidone Blood pressures acceptable on carvedilol. Patient was receiving IV Bumex when in PCU, but held due to worsening renal function. Currently on RA.? 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 Edema improved. Patient having multiple loose bms and today SCr 2.99, BUN up to 139. Will hold bumex for now. Check hgb. Labs ordered for am. No recent steroids. History of iron deficiency anemia and thrombocytopenia. Saw Dr. Mcintyre.? Normal LDH, haptoglobin and CPK level.? History of ulcerative colitis on balsalazide Documented by User: Dr. Kvng James MD 12/16/22 15:27 Objective Data Lab / Micro Data Result Diagrams: 12/11/22 05:15 12/16/22 05:14 Assessment & Plan Assessment/Plan (1) Acute kidney injury: PLAN: Plan 82-year-old male with history of CKD stage 3/4, iron deficiency anemia, thrombocytopenia and ulcerative colitis admitted for pneumonia.?Nephrology consulted for MYRON superimposed on CKD when patient was in PCU. Patient currently in TCU for therapy. MYRON on CKD stage 3/4.? Baseline creatinine seems to be around 2.0-2.4mg/dL.? Serum creatinine was 2.44 mg/dL in July 2022.? Creatinine 2.53 on admission, peaked 3.12mg/dL and last serum creatinine 2.85 from 12/11.? MYRON was possibly from infection, overdiuresis.? Renal function improved to near baseline. 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 Encouraged increase solute intake UA showed proteinuria; urine protein creatinine ratio 492 mg/g.? No hematuria.? Albumin 2.6 Previous renal Dopplers were negative for stenosis, renal ultrasound no hydro.? Postvoid bladder scan was negative. Home medications on hold: Lisinopril and chlorthalidone Blood pressures acceptable on carvedilol. Patient was receiving IV Bumex when in PCU, but held due to worsening renal function. Currently on RA.? 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 Edema improved. Patient having multiple loose bms and today SCr 2.99, BUN up to 139. Will hold bumex for now. Check hgb. Labs ordered for am. No recent steroids. History of iron deficiency anemia and thrombocytopenia. Saw Dr. Mcintyre.? Normal LDH, haptoglobin and CPK level.? History of ulcerative colitis on balsalazide agree with above
[2022-12-16] MEDS: traMADol 50 MG Tablet PO ×2 (11:53→20:03)
--- NOTE | 2022-12-16 11:56 | MDS.RN ---
Information for the mds was obtained from review of the clinical record, interview of resident, staff, and direct observation of resident's care.
--- NOTE | 2022-12-16 14:08 | WOUNDNOTE ---
wound photo: left heel
--- NOTE | 2022-12-16 14:09 | WOUNDNOTE ---
wound photo: left lower leg/foot
--- NOTE | 2022-12-16 14:09 | WOUNDNOTE ---
wound photo: right dorsal foot
[2022-12-16 15:30] VITALS: BP 123/48; PULSE 67; RESP 16; TEMP 36.2; O2SAT 95
[2022-12-16] MEDS: Atorvastatin Calcium 40 MG Tablet PO (19:47)
[2022-12-17] MEDS: traMADol 50 MG Tablet PO ×2 (03:24→20:12)
[2022-12-17 05:05] VITALS: BMI 23.9
[2022-12-17 05:30] LABS: Absolute Lymphocyte Count 0.97 X10^3/uL (0.83-4.51); Absolute Neutrophil Count 4.5 X10^3/uL (2.0-7.7); Basophil# 0.01 X10^3/uL; Basophil% 0.2 % (0-1); Eosinophil# 0.08 X10^3/uL; Eosinophils% 1.2 % (0-5); Hematocrit 22.8 % (40-54); Hemoglobin 7.5 g/dL (13.0-16.5); Lymphocyte # 0.97 X10^3/ul (0.83-4.51); Lymphocyte % 14.9 % (19-41); Mean Corp Hgb Conc 32.9 g/dL (32-36); Mean Corpuscular Hgb 33.8 pg (27.0-32.0); Mean Corpuscular Volume 102.7 fL (80-94); Mean Platelet Vol. 9.4 fl (6.2-12.0); Monocyte# 0.94 X10^3/uL; Monocyte% 14.5 % (0-10); NRBC Flagged by Analyzer 0 % (0-5); Neutrophil # 4.45 X10^3/uL (2.7-7.7); Neutrophil % 68.6 % (47-70); Platelet Count 169 K/mm3 (150-450); RBC Distribution Width SD 52.9 fl (35.1-43.9); Red Blood Count 2.22 M/mm3 (4.6-6.2); White Blood Count 6.5 K/mm3 (4.4-11.0)
[2022-12-17] MEDS: Levothyroxine 75 MCG Tablet PO (06:02)
[2022-12-17] MEDS: BALSALAZIDE DISODIUM 750 MG CAPSULE 2250 MG PO ×2 (06:02→17:29)
[2022-12-17] MEDS: Vitamin B Comp W-C Capsule 1 CAP PO (06:02)
[2022-12-17] MEDS: Nystatin Powder 15gm Bottle 1 APPLIC TOPICAL ×2 (06:03→17:29)
[2022-12-17] MEDS: Menthol/Lanolin/Calamine/Znox 113 GM Tube 1 APPLIC TOPICAL ×2 (06:03→17:30)
[2022-12-17 06:05] LABS: Anion Gap 6 (5-15); BUN 127 mg/dL (7-18); BUN/Creat Ratio 48.5 RATIO (10-20); Chloride 103 mmol/L (98-107); Creatinine, Serum 2.62 mg/dL (0.70-1.30); EST Glomerular Filtration Rate 25 mL/min (>60); Est Glom Filt Rate - Afr Amer 30 mL/min (>60); Estimated Creatinine Clearance 22.83 ml/min; Glucose 90 mg/dL (74-106); Potassium 4.3 mmol/L (3.5-5.1); Sodium Level 139 mmol/L (136-145)
--- NOTE | 2022-12-17 06:12 | NURSING ---
Dr. Hale updated on critical lab.
[2022-12-17] MEDS: Juven (unflavored) Packet 1 PACKET PO ×2 (08:11→17:29)
[2022-12-17] MEDS: Amiodarone 200 MG Tablet 100 MG PO (08:11)
[2022-12-17] MEDS: Ferrous Sulfate 325 MG Tablet PO (08:12)
[2022-12-17] MEDS: Aspirin E.C. 81 MG Tablet PO (08:12)
[2022-12-17] MEDS: Carvedilol 3.125 MG TABLET PO ×2 (08:12→20:12)
[2022-12-17 08:19] VITALS: BP 124/51; PULSE 72
[2022-12-17] MEDS: Acetaminophen 500 MG Tablet 1000 MG PO (11:10)
[2022-12-17 14:47] VITALS: BP 126/50; PULSE 65; RESP 17; TEMP 36.6; O2SAT 94
[2022-12-17] MEDS: Atorvastatin Calcium 40 MG Tablet PO (20:12)
[2022-12-17 20:14] VITALS: BP 136/50; PULSE 65
--- NOTE | 2022-12-17 20:52 | NURSING ---
Spoke with Dr. Hale regarding positive occult stool and questioned whether to hold ASA in morning or not. New orders received to consult Gastroenterology due to anemia and positive occult stool. May give ASA in am. Patient to have transfusion in am. Will continue to monitor.
[2022-12-17 22:10] VITALS: PULSE 65; RESP 18; O2SAT 98
[2022-12-18] MEDS: Levothyroxine 75 MCG Tablet PO (04:50)
[2022-12-18] MEDS: BALSALAZIDE DISODIUM 750 MG CAPSULE 2250 MG PO ×2 (04:50→18:05)
[2022-12-18] MEDS: Vitamin B Comp W-C Capsule 1 CAP PO (04:50)
[2022-12-18] MEDS: Nystatin Powder 15gm Bottle 1 APPLIC TOPICAL ×2 (04:52→18:07)
[2022-12-18] MEDS: Menthol/Lanolin/Calamine/Znox 113 GM Tube 1 APPLIC TOPICAL ×2 (04:53→18:07)
[2022-12-18 05:31] LABS: Absolute Lymphocyte Count 0.86 X10^3/uL (0.83-4.51); Absolute Neutrophil Count 4.5 X10^3/uL (2.0-7.7); Basophil# 0.02 X10^3/uL; Basophil% 0.3 % (0-1); Eosinophil# 0.11 X10^3/uL; Eosinophils% 1.7 % (0-5); Hematocrit 21.7 % (40-54); Lymphocyte # 0.86 X10^3/ul (0.83-4.51); Lymphocyte % 13.3 % (19-41); Mean Corp Hgb Conc 32.3 g/dL (32-36); Mean Corpuscular Hgb 33.8 pg (27.0-32.0); Mean Corpuscular Volume 104.8 fL (80-94); Mean Platelet Vol. 9.9 fl (6.2-12.0); Monocyte# 0.89 X10^3/uL; Monocyte% 13.8 % (0-10); NRBC Flagged by Analyzer 0 % (0-5); Neutrophil # 4.54 X10^3/uL (2.7-7.7); Neutrophil % 70.1 % (47-70); Platelet Count 149 K/mm3 (150-450); RBC Distribution Width CV 14.3 % (11.6-14.6); RBC Distribution Width SD 54.2 fl (35.1-43.9); Red Blood Count 2.07 M/mm3 (4.6-6.2); White Blood Count 6.5 K/mm3 (4.4-11.0)
[2022-12-18 05:54] VITALS: BMI 23.8
[2022-12-18 06:30] LABS: Anion Gap 6 (5-15); BUN 113 mg/dL (7-18); BUN/Creat Ratio 48.7 RATIO (10-20); Calcium,Total 8.6 mg/dL (8.5-10.1); Chloride 103 mmol/L (98-107); Creatinine, Serum 2.32 mg/dL (0.70-1.30); EST Glomerular Filtration Rate 29 mL/min (>60); Est Glom Filt Rate - Afr Amer 35 mL/min (>60); Estimated Creatinine Clearance 25.78 ml/min; Glucose 98 mg/dL (74-106); Potassium 4.5 mmol/L (3.5-5.1); Sodium Level 139 mmol/L (136-145)
--- NOTE | 2022-12-18 06:41 | NURSING ---
Received call from lab reporting critical BUN 113. Decreased from 127. Dr. Hale aware. Will continue to monitor.
[2022-12-18] MEDS: Amiodarone 200 MG Tablet 100 MG PO (07:55)
[2022-12-18] MEDS: Aspirin E.C. 81 MG Tablet PO (07:55)
[2022-12-18] MEDS: Carvedilol 3.125 MG TABLET PO ×2 (07:55→18:09)
[2022-12-18] MEDS: Ferrous Sulfate 325 MG Tablet PO (07:55)
[2022-12-18] MEDS: Juven (unflavored) Packet 1 PACKET PO ×2 (07:55→18:04)
[2022-12-18] MEDS: Acetaminophen 500 MG Tablet 1000 MG PO (08:39)
[2022-12-18 08:43] VITALS: PULSE 72; RESP 16; O2SAT 98
--- NOTE | 2022-12-18 08:54 | NURSING ---
pt off unit to blood transfusion at this time via WC. Dressings changed to BLEs per order and tylenol given per pt request.
--- NOTE | 2022-12-18 15:04 | NURSING ---
pt done with blood transfusion and took to Dr Oliveros appt @ [id number]
--- NOTE | 2022-12-18 15:40 | CHAPLAIN ---
Type of Pastoral Visit ___ Initial Visit ___ Follow-up Visit ___ On-call Visit ___ General Patient Visit ___ Spiritual Assessment ___ Family Conference ___ Bereavement ___ Rapid Response ___ Code Blue ___ Other (describe below) Pastoral Care Referral From ___ Patient ___ Family ___ Nurse ___ Physician ___ Community Health Counselor ___ Dinkey Engine Operator ___ Other (describe below) Sacrament/Intervention ___ Active listening ___ Anointing ___ Orthodoxy ___ Bereavement ___ Communion ___ Alicja exploration ___ ___ Life review ___ Prayer ___ Reconciliation ___ Sacrament of Sick ___ Supportive presence ___ Wedding ___ Other (describe below) Pastoral Comments stopped by twice today and patient is not in the room at that time
[2022-12-18 16:00] VITALS: BP 170/53; PULSE 66; RESP 16; TEMP 36.2; O2SAT 97
[2022-12-18 17:05] VITALS: BMI 23.7
[2022-12-18] MEDS: oxyCODONE 5 MG Tablet PO (19:42)
[2022-12-18 21:12] VITALS: BP 167/61; PULSE 66; RESP 18
[2022-12-18] MEDS: Atorvastatin Calcium 40 MG Tablet PO (21:14)
--- NOTE | 2022-12-18 23:00 | NURSING ---
Bilateral lower extremity dressings changed per wound care order
[2022-12-19 06:00] VITALS: BMI 23.5
[2022-12-19] MEDS: Levothyroxine 75 MCG Tablet PO (06:04)
[2022-12-19] MEDS: BALSALAZIDE DISODIUM 750 MG CAPSULE 2250 MG PO ×2 (06:04→16:51)
[2022-12-19] MEDS: Menthol/Lanolin/Calamine/Znox 113 GM Tube 1 APPLIC TOPICAL ×2 (06:05→16:52)
[2022-12-19] MEDS: Nystatin Powder 15gm Bottle 1 APPLIC TOPICAL ×2 (06:05→16:51)
[2022-12-19 08:31] VITALS: BP 146/56; PULSE 68; RESP 17; TEMP 36.6; O2SAT 96
[2022-12-19] MEDS: Amiodarone 200 MG Tablet 100 MG PO (08:34)
[2022-12-19] MEDS: Vitamin B Comp W-C Capsule 1 CAP PO (08:34)
[2022-12-19] MEDS: Aspirin E.C. 81 MG Tablet PO (08:35)
[2022-12-19] MEDS: Ferrous Sulfate 325 MG Tablet PO (08:35)
[2022-12-19] MEDS: Juven (unflavored) Packet 1 PACKET PO ×2 (08:35→16:51)
[2022-12-19] MEDS: Carvedilol 3.125 MG TABLET PO ×2 (08:35→21:55)
[2022-12-19 08:46] LABS: Absolute Lymphocyte Count 0.78 X10^3/uL (0.83-4.51); Absolute Neutrophil Count 5.9 X10^3/uL (2.0-7.7); Basophil# 0.02 X10^3/uL; Basophil% 0.3 % (0-1); Eosinophil# 0.14 X10^3/uL; Eosinophils% 1.9 % (0-5); Hematocrit 32.9 % (40-54); Hemoglobin 10.6 g/dL (13.0-16.5); Lymphocyte # 0.78 X10^3/ul (0.83-4.51); Lymphocyte % 10.4 % (19-41); Mean Corp Hgb Conc 32.2 g/dL (32-36); Mean Corpuscular Hgb 32.4 pg (27.0-32.0); Mean Corpuscular Volume 100.6 fL (80-94); NRBC Flagged by Analyzer 0 % (0-5); Neutrophil # 5.88 X10^3/uL (2.7-7.7); Neutrophil % 78.6 % (47-70); Platelet Count 145 K/mm3 (150-450); RBC Distribution Width CV 16.9 % (11.6-14.6); RBC Distribution Width SD 62.8 fl (35.1-43.9); Red Blood Count 3.27 M/mm3 (4.6-6.2); White Blood Count 7.5 K/mm3 (4.4-11.0)
[2022-12-19 09:12] LABS: Anion Gap 6 (5-15); BUN 103 mg/dL (7-18); BUN/Creat Ratio 45.6 RATIO (10-20); Calcium,Total 9.3 mg/dL (8.5-10.1); Chloride 105 mmol/L (98-107); Creatinine, Serum 2.26 mg/dL (0.70-1.30); EST Glomerular Filtration Rate 30 mL/min (>60); Est Glom Filt Rate - Afr Amer 36 mL/min (>60); Estimated Creatinine Clearance 26.47 ml/min; Glucose 133 mg/dL (74-106); Potassium 4.3 mmol/L (3.5-5.1); Sodium Level 140 mmol/L (136-145)
--- NOTE | 2022-12-19 10:32 | CASEMGMT ---
Addendum entered by Sheila Sloan 12/20/22 10:07: SW sent updated clinicals, PASRR and DC paperwork to [facility] via [employer] Addendum entered by Sheila Sloan 12/19/22 16:08: Scheduled w/c transport through [facility] for 1100 on 12/23. Original Note: Social Work [facility] has bed availability and offered to set DC for pt. SW spoke with pt. Offered to set DC date. Pt prefers to DC 12/23 to [place]. SW to coordinate transportation. Pt appreciative. SW updated W and IDT. PASRR completed. Plan: DC 12/23 to [place], intermediate, private pay, part B therapies NIKITA IsraelW
--- NOTE | 2022-12-19 11:35 | NURSING ---
Addendum entered by Gagan Garg 12/19/22 16:26: Nephrology was in to see patient. No new orders. Addendum entered by Gagan Garg 12/19/22 11:42: Attempted to call Nephrology to report critical BUN. No answer. No VM. Will make second attempt. Original Note: Notified Dr. Hale critical BUN 103.
--- NOTE | 2022-12-19 15:24 | PCM.PN.REN ---
Subjective Subjective Resting in bed, no complaints. States appetite fair, denies diarrhea. Objective Data Objective Data Vital Signs: Vital Signs Temp Pulse Resp BP Pulse Ox O2 Del Method 97.8 F 68 17 146/56 H 96 Room Air 12/19/22 08:31 12/19/22 08:31 12/19/22 08:31 12/19/22 08:31 12/19/22 08:31 12/19/22 08:31 Oxygen Delivery Method Room Air Weight: 74.6 kg Body Mass Index (BMI) 23.5 Intake & Output: Intake and Output for Last 24 Hours 12/17/22 12/18/22 12/19/22 23:59 23:59 23:59 Intake Total 1110 / 1110 600 / 600 920 / 920 Output Total 300 / 300 Balance 1110 / 1110 600 / 600 620 / 620 Lab / Micro Data Result Diagrams: 12/19/22 08:22 12/19/22 08:22 Labs: Laboratory Results - last 24 hr 12/19/22 08:22: WBC 7.5, RBC 3.27 L, Hgb 10.6 L, Hct 32.9 L, MCV 100.6 H, MCH 32.4 H, MCHC 32.2, RDW Std Deviation 62.8 H, RDW Coeff of Chanel 16.9 H, Plt Count 145 L, MPV 10.0, Immature Gran % (Auto) 0.800, Neut % (Auto) 78.6 H, Lymph % (Auto) 10.4 L, Rowan % (Auto) 8.0, Eos % (Auto) 1.9, Baso % (Auto) 0.3, Absolute Neuts (auto) 5.9, Absolute Lymphs (auto) 0.78 L, Nucleated RBC % 0 12/19/22 08:22: Sodium 140, Potassium 4.3, Chloride 105, Carbon Dioxide 29.0, Anion Gap 6, BUN 103 H*, Creatinine 2.26 H, Estim Creat Clear Calc 26.47, Est GFR (MDRD) Af Amer 36 L, Est GFR (MDRD) Non-Af 30 L, BUN/Creatinine Ratio 45.6 H, Glucose 133 H, Calcium 9.3 Micro: Microbiology 12/17/22 18:20 Stool Stool Occult Blood (OSCAR) - Final Occult Blood Positive 12/07/22 05:36 Nasal Secretion SARS-CoV-2 Antigen (Rapid) - Final 12/05/22 05:15 Nasal Secretion SARS-CoV-2 Antigen (Rapid) - Final Physical Exam Narrative Alert and oriented x3, no apparent distress S1-S2, RRR Lung sounds clear anteriorly and posteriorly. No wheezes, rhonchi or rales noted Abdomen soft, nontender, positive bowel sounds Bilateral legs with Manish wraps intact. No pitting edema noted bilateral thighs. Assessment & Plan Assessment/Plan (1) Acute kidney injury: PLAN: Plan 82-year-old male with history of CKD stage 3/4, iron deficiency anemia, thrombocytopenia and ulcerative colitis admitted for pneumonia.?Nephrology consulted for MYRON superimposed on CKD when patient was in PCU. Patient currently in TCU for therapy. MYRON on CKD stage 3/4.? Baseline creatinine seems to be around 2.0-2.4mg/dL.? Serum creatinine was 2.44 mg/dL in July 2022.? MYRON was possibly from infection, overdiuresis when in PCU. 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 Encouraged increase solute intake UA showed proteinuria; urine protein creatinine ratio 492 mg/g.? No hematuria.? Albumin 2.6 Previous renal Dopplers were negative for stenosis, renal ultrasound no hydro.? Postvoid bladder scan was negative. Home medications on hold: Lisinopril and chlorthalidone Blood pressures acceptable on carvedilol. Patient was receiving IV Bumex when in PCU, but held due to worsening renal function. 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 Edema improved. Patient was having multiple loose bms and on 12/16 SCr 2.99, BUN 139. Bumex put on hold. Patient found to have down trending hgb and received PRBC. Today SCr 2.26, BUN 103. Continue off bumex for now. History of iron deficiency anemia and thrombocytopenia. Saw Dr. Mcintyre.? Normal LDH, haptoglobin and CPK level.? hemoglobin improved with PRBC, Hgb went from 7 to 10.6. Likely elevated bun from acute anemia. History of ulcerative colitis on balsalazide
--- NOTE | 2022-12-19 17:41 | EX.PCM.CON.G ---
HPI Consult Data Date of Consult: 12/19/22 HPI Narrative Reason for Consultation: Anemia HPI Narrative: EULOGIO NOGUERA, is a 82-year-old male with history of CKD stage IIIb, coronary artery disease, PVD, ulcerative colitis, hypothyroidism presented to 11/29/2022 due to falls and weakness.? He was noted to have a right patchy lobe infiltrate and it was suspected he had pneumonia and he was started on antibiotics.? He had 2 out of 2 blood cultures for gram-negative rods, speciated to Klebsiella pneumonia, suspect that lung pneumonia was due to Klebsiella pneumonia as no other source found.? Overall he improved significantly and on day of discharge had no complaints and reported his pain in his left leg was better, no breathing complaints.? Plan was to send to TCU with oral antibiotics however given interaction with Levaquin and amiodarone decision was made to discharge with 4 more days of IV Rocephin through peripheral IV given short-term. I was asked to see him in TCU due to a decreased hemoglobin and fecal positive stools. He has a history of alcohol abuse but no clear history of cirrhosis. His hemoglobin is 10.6 which is down from 12, MCV 100.6, platelet count 145, BUN 103, creatinine 2.26 [facility] Medical History Alcohol use Ambulates with cane Atherosclerotic heart disease of [place] coronary artery without angina pectoris Atrial fibrillation Atrial fibrillation and flutter Cardiology follow-up encounter Carotid artery stenosis Dietary restriction Emphysema of lung Essential hypertension Former smoker Hematemesis/vomiting blood High cholesterol History of atrial fibrillation History of cardioversion (~05/09/20) History of coronary artery disease History of echocardiogram History of GI bleed History of right inguinal hernia History of stress test History of transesophageal echocardiography (ROSI) History of umbilical hernia Hx of ulcerative colitis Hypercholesterolemia Hyperlipidemia Hypertension 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 Mitral valve insufficiency PAD (peripheral artery disease) Premature atrial contractions Right carotid bruit Shortness of breath on exertion Subclavian artery stenosis, left (~10/15/19) Thrombocytopenia Thrombocytopenia Thyroid disease Ulcerative colitis Ulcerative colitis Upper GI bleed Upper GI bleed Walker as ambulation aid Wears glasses Wears hearing aid Home Medications ferrous sulfate 325 mg (65 mg iron) tablet 325 mg PO DAILY vitamin 11/29/15 [History Last Taken 05/09/20] zinc gluconate 50 mg tablet 50 mg PO DAILY supplement 05/28/15 [History Last Taken 05/09/20] vitamin B complex 1 each PO DAILY vitamin 02/07/16 [History Last Taken 05/09/20] aspirin 81 mg tablet,delayed release 81 mg PO DAILY@0800 heart health 08/29/16 [History Last Taken 04/23/21] levothyroxine 50 mcg tablet 75 mcg PO DAILY thyroid 06/13/20 [History Last Taken Unknown] balsalazide 750 mg capsule (Colazal) 2,250 mg PO BID Check with primary doctor 05/16/21 [History Last Taken Unknown] amiodarone 200 mg tablet 100 mg PO DAILY heart 12/03/22 [History Last Taken Unknown] atorvastatin 40 mg tablet (Lipitor) 40 mg PO DAILY cholesterol 12/03/22 [History Last Taken Unknown] carvedilol 3.125 mg tablet 3.125 mg PO BID heart 12/03/22 [History Last Taken Unknown] Allergy/AdvReac Type Severity Reaction Status Date / Time hydrochlorothiazide Allergy Severe Rash Verified 11/29/22 01:38 furosemide [From Lasix] Allergy Severe Verified 12/18/22 09:53 Rash Itchy lovastatin [From Mevacor] Allergy Rash Verified 11/29/22 01:38 amlodipine AdvReac Swelling Verified 11/29/22 01:38 Family History Father CAD (coronary artery disease) Mother Cancer breast Surgical History Aortocoronary bypass status (~02/12/17) History of cardiac catheterization History of hand surgery History of right inguinal hernia repair History of umbilical hernia repair History of vasectomy Hx of CABG Hx of colonoscopy Hx of esophagogastroduodenoscopy Hx of heart bypass surgery S/P right inguinal hernia repair S/P umbilical hernia repair, follow-up exam Status post insertion of drug-eluting stent into right coronary artery for coronary artery disease (~04/2009) Social History adopted: No household members: spouse housing: house number of children: 2 current occupational status: retired Smoking Status: Former smoker Tobacco: How many years used: 50 (stopped about 10 yrs ago) how long ago did patient quit smokin years ago alcohol intake: current alcohol intake frequency: 3 or more drinks per day Alcohol type: beer, wine and hard liquor substance use type: does not use caffeine: Yes Type: coffee Number of servings: 2 ROS Constitutional Constitutional: Reports weakness; Denies chills, fever(s) or weight gain ENT HEENT: Denies headache(s), nasal congestion or nasal discharge Cardiovascular Cardiovascular: Denies chest pain or palpitations Respiratory/Chest Respiratory/Chest: Denies cough, excessive phlegm production or shortness of breath with exertion Gastrointestinal Gastrointestinal: Denies abdominal pain, nausea or vomiting Genitourinary Genitourinary: Denies dysuria Musculoskeletal Musculoskeletal: Denies joint pain or joint swelling Integumentary Integumentary: Denies rash or wounds Neurologic Neurologic: Denies focal weakness, numbness or tingling Psychiatric Psychiatric: Denies anxiety, auditory hallucinations, depression, homicidal ideation or suicidal ideation Physical Exam Narrative Alert and oriented x3, no apparent distress S1-S2, RRR Lung sounds clear anteriorly and posteriorly. No wheezes, rhonchi or rales noted Abdomen soft, nontender, positive bowel sounds Bilateral legs with Manish wraps intact. No pitting edema noted bilateral thighs. Lab / Micro Data Result Diagrams: 12/19/22 08:22 12/19/22 08:22 Labs: Laboratory Results - last 24 hr 12/19/22 08:22: WBC 7.5, RBC 3.27 L, Hgb 10.6 L, Hct 32.9 L, MCV 100.6 H, MCH 32.4 H, MCHC 32.2, RDW Std Deviation 62.8 H, RDW Coeff of Chanel 16.9 H, Plt Count 145 L, MPV 10.0, Immature Gran % (Auto) 0.800, Neut % (Auto) 78.6 H, Lymph % (Auto) 10.4 L, Carver % (Auto) 8.0, Eos % (Auto) 1.9, Baso % (Auto) 0.3, Absolute Neuts (auto) 5.9, Absolute Lymphs (auto) 0.78 L, Nucleated RBC % 0 12/19/22 08:22: Sodium 140, Potassium 4.3, Chloride 105, Carbon Dioxide 29.0, Anion Gap 6, BUN 103 H*, Creatinine 2.26 H, Estim Creat Clear Calc 26.47, Est GFR (MDRD) Af Amer 36 L, Est GFR (MDRD) Non-Af 30 L, BUN/Creatinine Ratio 45.6 H, Glucose 133 H, Calcium 9.3 Assessment & Plan Assessment/Plan (1) Acute renal insufficiency: (2) Pneumonia: (3) Chronic kidney disease (CKD): QUALIFIERS: Chronic kidney disease stage: stage 4 (severe) Qualified Code(s): N18.4 - Chronic kidney disease, stage 4 (severe) (4) Atrial fibrillation: QUALIFIERS: Atrial fibrillation type: paroxysmal Qualified Code(s): I48.0 - Paroxysmal atrial fibrillation (5) Bacteremia: (6) Anemia: PLAN: Plan 82-year-old with past medical history of CAD this is status post PTCA with stent on aspirin, cardiac arrhythmia on amiodarone, hypertension, hyperlipidemia, ulcerative colitis, hypothyroidism who is currently has iron deficiency anemia, pancytopenia and acute kidney injury with recent gram-negative didi bacteremia. #Anemia Patient does not want to have a colonoscopy but he should undergo an at least an upper endoscopy due to his fecal occult positive stools and anemia. He is at high risk of colon cancer second also colitis however he does not want to do that at this time. #MYRON on CKD stage IIIb Creatinine is about the same, does have protein in urine. Previous renal Dopplers negative for stenosis, negative post void, renal ultrasound pending. Nephrology following. Continue to hold lisinopril and hydrochlorothiazide #Fever/chills and gram-negative didi bacteremia -This has resolved #Elevated troponin -Suspect type II in setting of bacteremia and CKD -Troponin initially 134 and went to 139 down trended to 92 #Severe pulmonary hypertension/severe mitral annular calcification -Echocardiogram 11/29 obtained with moderate concentric left ventricular hypertrophy with inability to assess diastolic dysfunction, severe mitral annular calcification, moderate tricuspid valve insufficiency, EF of 60% with left and right atrium is enlarged and severe pulmonary hypertension -Last echocardiogram 09/26/2020 with segmental dysfunction, EF 65% with bilateral atrial enlargement and moderate to severe mitral annular calcification with mild to moderate tricuspid insufficiency and RVSP estimated to be 34 #Pancytopenia -Chronic but appears to be worse -Worsening likely secondary to underlying infection -Has followed with Dr. Mcintyre in the past -Iron panel consistent with anemia of chronic disease -Liver panel fairly benign -Recommend to check ultrasound of the liver #Hypothyroidism -TSH 0.75 -Continue Synthroid #History of ulcerative colitis -Continue Colazal #hx CAD status post CABG and stenting -CABG x2- ZARAGOZA to LAD, Aorto post descending coronary artery to revers SVG 02/12/17; atherectomy to ostial RCA, LINDY to Prox/Mid RCA 04/2009 -Aspirin held due to thrombocytopenia, carvedilol and atorvastatin continued #A-fib -Continue amiodarone and will decrease carvedilol due to soft pressures, not on AC due to history of GI bleed -11/30: Though amiodarone was still 200 mg on his home med list cardiology note recently reported he was to decrease to 100 mg, will reflect this change while inpatient #Alcohol use history -EtOH negative -We will give B12, thiamine, folate supplementation #Falls -Treat present illness -PT/OT #Hx empyema with VATS -In August 2020 at [facility] after CT surgery evaluation -Had resultant pneumothorax at that time #DVT ppx: SCDs ordered given thrombocytopenia Sammie Castaneda MD Charges/Coding Visit Charges Inpatient E&M: 82510 SNF Init L2
--- NOTE | 2022-12-19 19:56 | DS.PCM_ITS ---
Providers Date of Admission: 12/03/22 Primary Care Physician: Dr. Rosa Maria Santacruz MD Consultations 12/03/22 22:21 Consult: Nephrology Routine Consulting Provider: Kvng James Reason for Consult: Acute on chronic renal failure. 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 Comment: BLE wounds, weeping areas, left heel wound 12/10/22 16:55 Consult: Pain Management Routine Consulting Provider: Socorro Oliveros Reason for Consult: Old L1 Compression Deformity EMERGENT Consult: No MD Notified: Yes Date Notified: 12/11/22 Time Notified: 14:30 Method of Notification: Verbal Method of Consult:: In-Person 12/17/22 20:50 Consult: Gastroenterology Routine Consulting Provider: Lorie G[facility] Reason for Consult: Anemia, positive occult stool EMERGENT Consult: No MD Notified: Yes Date Notified: 12/17/22 Time Notified: 20:51 Method of Notification: Verbal Reason For Visit: FALL Diagnosis Discharge Diagnosis (1) Acute renal insufficiency: Status: Acute Code(s): N28.9 - Disorder of kidney and ureter, unspecified (2) Pneumonia: Status: Resolved Code(s): J18.9 - Pneumonia, unspecified organism (3) Chronic kidney disease (CKD): Status: Deleted Code(s): N18.9 - Chronic kidney disease, unspecified Qualifiers: Chronic kidney disease stage: stage 4 (severe) Qualified Code(s): N18.4 - Chronic kidney disease, stage 4 (severe) (4) Atrial fibrillation: Status: Chronic Code(s): I48.91 - Unspecified atrial fibrillation Qualifiers: Atrial fibrillation type: paroxysmal Qualified Code(s): I48.0 - Paroxysmal atrial fibrillation (5) Bacteremia: Status: Resolved Code(s): R78.81 - Bacteremia (6) Anemia: Status: Acute Code(s): D64.9 - Anemia, unspecified Plan 82 year old male with below past medical history hospitalized for Klebsiella pneumonia, complicated by bacteremia, acute kidney injury, acute diastolic congestive heart failure, pancytopenia, admitted to TCU with debility, here for rehabilitation, strengthening, prior to discharge home with . * Debility - PT/OT. * Pain - Tylenol 1000mg q6h prn pain (1-10). * Bowel - senna/colace 1 tablet bid, MOM 30ml po x 1 prn. * Adult immunization - Administer pneumonia vaccine, covid19 vaccine, flu vaccine as appropriate. * DVT prophylaxis - Hold, anemia. * Atrial fibrillation - Coreg 3.125mg bid, Amiodarone 100mg daily, aspirin 81mg daily, ? no anticoagulation. * Coronary artery disease - Coreg 3.125mg bid, aspirin 81mg daily. * Hyperlipidemia - Atorvastatin 40mg qhs. * Ulcerative colitis - Balsalazide 2250mg bid. * Klebsiella right middle lobe pneumonia - Ceftriaxone 2gm iv q24h thru 12/07/2022. * Iron deficiency anemia - Ferrous sulfate 325mg daily. * Shortness of breath - Duoneb 3ml tid prn. * Hypothyroidism - Levothyroxine 75mcg daily. * Leg cramps - Vitamin B complex 1 capsule daily. * Zinc deficiency - Zinc 220mg daily. * Acute kidney injury - Consult nephrology to follow. Medications at Discharge Home Medications ferrous sulfate 325 mg (65 mg iron) tablet 325 mg PO DAILY vitamin 05/28/15 zinc gluconate 50 mg tablet 50 mg PO DAILY supplement 05/28/15 vitamin B complex 1 each PO DAILY vitamin 02/07/16 aspirin 81 mg tablet,delayed release 81 mg PO DAILY@0800 [facility] 08/29/16 levothyroxine 50 mcg tablet 75 mcg PO DAILY thyroid 06/13/20 balsalazide 750 mg capsule (Colazal) 2,250 mg PO BID Check with primary doctor 05/16/21 amiodarone 200 mg tablet 100 mg PO DAILY heart 12/03/22 atorvastatin 40 mg tablet (Lipitor) 40 mg PO DAILY cholesterol 12/03/22 carvedilol 3.125 mg tablet 3.125 mg PO BID heart 12/03/22 acetaminophen 500 mg tablet 1,000 mg PO Q6H PRN PRN Pain Score 1-5 #0 tabs 12/19/22 arginine 7 gram-glutam 7 gram-CaHMB 1.5 [id number] oral pwd pkt (Fletcher (with collagen)) 1 packet PO BIDCM #0 ea 12/19/22 menthol 0.44 %-zinc oxide 20.6 % topical ointment (Calmoseptine) 1 applic topical BID #0 grams 12/19/22 nystatin 100,000 unit/gram topical powder (Nyamyc) 1 applic topical BID #0 grams 12/19/22 oxycodone 5 mg tablet 5 mg PO Q4H PRN PRN Pain Score 6-10 3 days #18 tabs 12/19/22 sennosides 8.6 mg-docusate sodium 50 mg tablet (Stool Softener-Stimulant Laxative) 1 tab PO BID PRN Constipation #0 tabs 12/19/22 tramadol 50 mg tablet 50 mg PO Q6H PRN PRN Pain Score 6-10 3 days #12 tabs 12/19/22 Hospital Course Operations None Procedures None Summary of Care Provided Minutes Spent on Discharge: 35 Hospital Course: 82 year old male with below past medical history hospitalized for Klebsiella pneumonia, complicated by bacteremia, acute kidney injury, acute diastolic congestive heart failure, pancytopenia, admitted to TCU with debility, here for rehabilitation, strengthening, prior to discharge home with . 12/18/2022 Transfused 2 units PRBC for hemoglobin 7.0. 12/19/2022 Hemoglobin 10.6. 12/20/2022 Dr. Horowitz offered EGD/colonoscopy for anemia, positive stool occult blood, resident declined. Nephrology followed acute kidney injury. Discharge to [facility] 12/23/2022, intermediate, private pay, part B therapies. Physical Exam Const alert General Appearance: cooperative HEENT normocephalic Eyes PERRL and EOMs intact bilaterally Neck supple, no JVD and no carotid bruits Resp normal respiratory effort, normal air movement and clear to auscultation bi laterally Cardio regular rate and regular rhythm GI normal to inspection, nondistended, normoactive bowel sounds, non-tender and non-distended Extremity normal capillary refill General Extremity: Negative for edema Skin no rashes or lesions noted General Skin Exam: no breakdown Psych affect normal Appearance: appropriate Weight / BMI Weight Weight: 74.6 kg Body Mass Index (BMI) 23.5 ABG / Lab / Microbiology Data Result Diagrams: 12/19/22 08:22 12/19/22 08:22 Laboratory: Laboratory Results - last 24 hr 12/19/22 08:22: WBC 7.5, RBC 3.27 L, Hgb 10.6 L, Hct 32.9 L, MCV 100.6 H, MCH 32.4 H, MCHC 32.2, RDW Std Deviation 62.8 H, RDW Coeff of Chanel 16.9 H, Plt Count 145 L, MPV 10.0, Immature Gran % (Auto) 0.800, Neut % (Auto) 78.6 H, Lymph % (Auto) 10.4 L, Nye % (Auto) 8.0, Eos % (Auto) 1.9, Baso % (Auto) 0.3, Absolute Neuts (auto) 5.9, Absolute Lymphs (auto) 0.78 L, Nucleated RBC % 0 12/19/22 08:22: Sodium 140, Potassium 4.3, Chloride 105, Carbon Dioxide 29.0, Anion Gap 6, BUN 103 H*, Creatinine 2.26 H, Estim Creat Clear Calc 26.47, Est GFR (MDRD) Af Amer 36 L, Est GFR (MDRD) Non-Af 30 L, BUN/Creatinine Ratio 45.6 H , Glucose 133 H, Calcium 9.3 Microbiology: Microbiology 12/17/22 18:20 Stool Stool Occult Blood (OSCAR) - Final Occult Blood Positive 12/07/22 05:36 Nasal Secretion SARS-CoV-2 Antigen (Rapid) - Final 12/05/22 05:15 Nasal Secretion SARS-CoV-2 Antigen (Rapid) - Final D/C Instructions Discharge Diet: No restrictions Discharge Activity: Return to Normal Activity, May Shower and Use Walker Weight Bearing Status: Weight bearing as tolerated Call your doctor if you observe: Fever of 101 or Higher, Inability to urinate, Inability to have a bowel movement, Shortness of breath, Dizziness, Fainting spells, Swelling in the ankles, Chest pain and Uncontrolled pain Additional Instructions: Discharge to [facility] 12/23/2022, intermediate, private pay, part B therapies. Please Follow Up With: Kvng James MD When: 1 week. Meaningful Use Info Meaningful Use Diagnoses (Choose all that apply): None applicable Discharge Plan Admission Admit Date/Time: 12/03/22 18:50 Primary Reason for Your Visit: Debility. Attending Provider: Jesu Hale Chi Primary Care Provider: Rosa Maria Santacruz Consulting Providers: Kvng James ; Socorro Oliveros Instructions Additional Instructions / Restrictions: Discharge to [facility] 12/23/2022, intermediate, private pay, part B therapies. Discharge Orders/Prescriptions Prescriptions: New acetaminophen 500 mg Tablet 1,000 mg PO Q6H PRN PRN (Reason: Pain Score 1-5) Qty: 0 0RF Fletcher (with collagen) 7-7-1.5 gram Powder In Packet 1 packet PO BIDCM Qty: 0 0RF menthol-zinc oxide [Calmoseptine] 0.44-20.6 % Ointment 1 applic topical BID Qty: 0 0RF Protocol: *Topical Application Instructions APPLICATION INSTRUCTIONS: BUTTOCKS sennosides-docusate sodium [Stool Softener-Stimulant Laxat] 8.6-50 mg Tablet 1 tab PO BID PRN (Reason: Constipation) Qty: 0 0RF nystatin [Nyamyc] 100,000 unit/gram Powder 1 applic topical BID Qty: 0 0RF Protocol: *Topical Application Instructions APPLICATION INSTRUCTIONS: GROIN tramadol 50 mg Tablet 50 mg PO Q6H PRN PRN (Reason: Pain Score 6-10) 3 Days Qty: 12 0RF oxycodone 5 mg Tablet 5 mg PO Q4H PRN PRN (Reason: Pain Score 6-10) 3 Days Qty: 18 0RF Continued balsalazide [Colazal] 750 mg capsule 2,250 mg PO BID ferrous sulfate 325 MG tablet 325 mg PO DAILY Label Comments: Iron supplement zinc gluconate 50 MG tablet 50 mg PO DAILY Label Comments: supplement vitamin B complex 1 EACH capsule 1 each PO DAILY Label Comments: Vitamin supplement aspirin 81 MG tablet 81 mg PO DAILY@0800 Hold Instructions: Resume on 12/06/22. Would recheck platelet function prior to resuming Label Comments: will stop 5 days prior to surgery atorvastatin [Lipitor] 40 mg tablet 40 mg PO DAILY amiodarone 200 mg tablet 100 mg PO DAILY carvedilol 3.125 mg tablet 3.125 mg PO BID levothyroxine 50 mcg tablet 75 mcg PO DAILY Referrals / Follow Up: Rosa Maria Santacruz MD [Primary Care Provider] - Disposition Disposition (needs filled in before D/C Order can be placed): NonSkilled NH/Intermed Care
--- NOTE | 2022-12-19 20:25 | TREXTCAR_ITS ---
Diet Diet Order/Speech Therapy: 12/04/22 01:33 Diet: Cardiac - Heart Healthy Food consistency:: Regular Liquid Consistency:: Regular/Thin Type of Dietary Supplement:: Ensure Plus High Protein Is pt able to select menu?: Yes Diet Comments: 8 oz chocolate EPHP w/ breakfast 12/20/22 00:01 NPO [Diet: Nothing Per Oral] Type of Dietary Supplement:: Ensure Plus High Protein Is pt able to select menu?: Yes Diet Comments: 8 oz chocolate EPHP w/ breakfast Routine Orders/Code Status Routine Lab Work: CBC and BMP Code Status: DNRCC-A (No intubation.) Wound(s) Left forearm: Wound Type: Skin Tag Dressing Change: Gauze Right proximal forearm: Wound Type: Skin Tear Dressing Change: ABD and Kerlix Right distal forearm: Wound Type: Skin Tear Dressing Change: ABD and kerlix Left proximal hodgson: Wound Type: Skin Tear Dressing Change: ABD Left distal hodgson: Wound Type: blistered area Dressing Change: Adaptic RIGHT HODGSON: Wound Type: weeping areas TOP RT FOOT: Wound Type: blister Dressing Change: Adaptic TOP LEFT FOOT: Wound Type: blistered/weeping area Dressing Change: Adaptic LT HEEL: Wound Type: Pressure Injury Dressing Change: well padded dry dressing Scrotum: Wound Type: Abrasion Therapies Weight Bearing: Weight bearing as tolerated Extremity Affected:: Bilateral Lower Physical Therapy: Eval and Treat Occupational Therapy: Eval and Treat Problem/Diagnosis (1) Acute renal insufficiency: Status: Acute Code(s): N28.9 - Disorder of kidney and ureter, unspecified (2) Pneumonia: Status: Resolved Code(s): J18.9 - Pneumonia, unspecified organism (3) Chronic kidney disease (CKD): Status: Deleted Code(s): N18.9 - Chronic kidney disease, unspecified Comment: This may explain the chronic anemia. (4) Atrial fibrillation: Status: Chronic Code(s): I48.91 - Unspecified atrial fibrillation Comment: DCCV on 05/09/2020; ROSI cardioversion at [facility] in September 2020; (5) Bacteremia: Status: Resolved Code(s): R78.81 - Bacteremia (6) Anemia: Status: Acute Code(s): D64.9 - Anemia, unspecified Plan 82 year old male with below past medical history hospitalized for Klebsiella pneumonia, complicated by bacteremia, acute kidney injury, acute diastolic congestive heart failure, pancytopenia, admitted to TCU with debility, here for rehabilitation, strengthening, prior to discharge home with . * Debility - PT/OT. * Pain - Tylenol 1000mg q6h prn pain (1-10). * Bowel - senna/colace 1 tablet bid, MOM 30ml po x 1 prn. * Adult immunization - Administer pneumonia vaccine, covid19 vaccine, flu vaccine as appropriate. * DVT prophylaxis - Hold, anemia. * Atrial fibrillation - Coreg 3.125mg bid, Amiodarone 100mg daily, aspirin 81mg daily, ? no anticoagulation. * Coronary artery disease - Coreg 3.125mg bid, aspirin 81mg daily. * Hyperlipidemia - Atorvastatin 40mg qhs. * Ulcerative colitis - Balsalazide 2250mg bid. * Klebsiella right middle lobe pneumonia - Ceftriaxone 2gm iv q24h thru 12/07/2022. * Iron deficiency anemia - Ferrous sulfate 325mg daily. * Shortness of breath - Duoneb 3ml tid prn. * Hypothyroidism - Levothyroxine 75mcg daily. * Leg cramps - Vitamin B complex 1 capsule daily. * Zinc deficiency - Zinc 220mg daily. * Acute kidney injury - Consult nephrology to follow. Allergies/Procedures Done in Hospital Allergies hydrochlorothiazide Allergy (Severe, Verified 11/29/22 01:38) Rash furosemide [From Lasix] Allergy (Verified 12/18/22 09:53) Severe Rash Itchy after taking for a long period of time lovastatin [From Mevacor] Allergy (Verified 11/29/22 01:38) Rash amlodipine Adverse Reaction (Verified 11/29/22 01:38) Swelling Procedures: None Type of Care/Length of Stay Estimated LOS: More Than 30 Days Type of Care Needed: Intermediate Rehab Potential: Good Prognosis: Good Additional Orders/Day of Discharge Additional Orders: part B therapies Day of Discharge: 12/23/22 Dietary and Speech Recommendations Dietitian Recommendations/Changes: Continue Cardiac diet. Continue 8 oz chocolate ensure plus high protein w/ breakfast daily Continue Fletcher bid to help w/ wound healing. Monitor for changes in res nutritional status and make additional rec as indicated. Follow Up Care Please follow up with your Primary Care Physician in: [facility] Please Follow Up With: Kvng James MD When: FOLLOW UP WITH NEPHROLOGY UPON DISCHARGE, CALL OFFICE TO SCHEDULE Please Follow Up With: TYRONE JOYCE When: FOLLOW-UP WITH CARDIOLOGY Please Follow Up With: Dr. Oliveros Discharge Plan Admission Admit Date/Time: 12/03/22 18:50 Primary Reason for Your Visit: Debility. Attending Provider: Jesu Hale Chi Primary Care Provider: Rosa Maria Santacruz Consulting Providers: Kvng James ; Socorro Oliveros Instructions Additional Instructions / Restrictions: Discharge to [facility] 12/23/2022, intermediate, private pay, part B therapies. Discharge Orders/Prescriptions Prescriptions: New acetaminophen 500 mg Tablet 1,000 mg PO Q6H PRN PRN (Reason: Pain Score 1-5) Qty: 0 0RF Fletcher (with collagen) 7-7-1.5 gram Powder In Packet 1 packet PO BIDCM Qty: 0 0RF menthol-zinc oxide [Calmoseptine] 0.44-20.6 % Ointment 1 applic topical BID Qty: 0 0RF Protocol: *Topical Application Instructions APPLICATION INSTRUCTIONS: BUTTOCKS sennosides-docusate sodium [Stool Softener-Stimulant Laxat] 8.6-50 mg Tablet 1 tab PO BID PRN (Reason: Constipation) Qty: 0 0RF nystatin [Nyamyc] 100,000 unit/gram Powder 1 applic topical BID Qty: 0 0RF Protocol: *Topical Application Instructions APPLICATION INSTRUCTIONS: GROIN tramadol 50 mg Tablet 50 mg PO Q6H PRN PRN (Reason: Pain Score 6-10) 3 Days Qty: 12 0RF oxycodone 5 mg Tablet 5 mg PO Q4H PRN PRN (Reason: Pain Score 6-10) 3 Days Qty: 18 0RF Continued balsalazide [Colazal] 750 mg capsule 2,250 mg PO BID ferrous sulfate 325 MG tablet 325 mg PO DAILY Label Comments: Iron supplement zinc gluconate 50 MG tablet 50 mg PO DAILY Label Comments: supplement vitamin B complex 1 EACH capsule 1 each PO DAILY Label Comments: Vitamin supplement aspirin 81 MG tablet 81 mg PO DAILY@0800 Hold Instructions: Resume on 12/06/22. Would recheck platelet function prior to resuming Label Comments: will stop 5 days prior to surgery atorvastatin [Lipitor] 40 mg tablet 40 mg PO DAILY amiodarone 200 mg tablet 100 mg PO DAILY carvedilol 3.125 mg tablet 3.125 mg PO BID levothyroxine 50 mcg tablet 75 mcg PO DAILY Referrals / Follow Up: Rosa Maria Santacruz MD [Primary Care Provider] - Disposition Disposition (needs filled in before D/C Order can be placed): NonSkilled [place]/Intermed Care (1) Chronic kidney disease (CKD) Qualifiers: Chronic kidney disease stage: stage 4 (severe) Qualified Code(s): N18.4 - Chronic kidney disease, stage 4 (severe) (2) Atrial fibrillation Qualifiers: Atrial fibrillation type: paroxysmal Qualified Code(s): I48.0 - Paroxysmal atrial fibrillation
[2022-12-19] MEDS: oxyCODONE 5 MG Tablet PO (21:54)
[2022-12-19] MEDS: Atorvastatin Calcium 40 MG Tablet PO (21:55)
[2022-12-19 22:17] VITALS: PULSE 80; RESP 16; O2SAT 98
[2022-12-20] MEDS: Menthol/Lanolin/Calamine/Znox 113 GM Tube 1 APPLIC TOPICAL ×2 (05:23→18:50)
[2022-12-20] MEDS: Nystatin Powder 15gm Bottle 1 APPLIC TOPICAL ×2 (05:23→18:50)
[2022-12-20 05:30] VITALS: BMI 24.2
[2022-12-20] MEDS: Carvedilol 3.125 MG TABLET PO ×2 (08:22→21:13)
[2022-12-20] MEDS: Amiodarone 200 MG Tablet 100 MG PO (08:22)
[2022-12-20] MEDS: Levothyroxine 75 MCG Tablet PO (08:26)
--- NOTE | 2022-12-20 13:39 | NURSING ---
dressingh change to BLE completed
[2022-12-20 14:21] VITALS: BP 150/66; PULSE 62; RESP 16; TEMP 36.3; O2SAT 97
[2022-12-20] MEDS: BALSALAZIDE DISODIUM 750 MG CAPSULE 2250 MG PO (18:18)
[2022-12-20] MEDS: Juven (unflavored) Packet 1 PACKET PO (18:21)
[2022-12-20] MEDS: miSOPROStol 100 MCG TABLET PO (18:50)
[2022-12-20] MEDS: Pantoprazole Sodium 40 MG Tablet PO (18:50)
[2022-12-20] MEDS: Sucralfate 1 GM Tablet PO (18:50)
[2022-12-20 21:10] VITALS: BP 152/58; PULSE 68; RESP 16
[2022-12-20] MEDS: Atorvastatin Calcium 40 MG Tablet PO (21:14)
[2022-12-20] MEDS: traMADol 50 MG Tablet PO (22:26)
[2022-12-20] MEDS: oxyCODONE 5 MG Tablet PO (23:58)
[2022-12-21 06:00] VITALS: BMI 22.4
--- NOTE | 2022-12-21 06:41 | NURSING ---
patient observed rubbing at left eye with closed hand, denies pain, Redness observed to left sclera. Reports eyes Feel dry at times. Education provided not to rub at eyes, patient A&Ox3 verbalized understanding. Patient requests eye drops for dry eyes. No distress observed or reported. Call light in reach.
[2022-12-21] MEDS: Levothyroxine 75 MCG Tablet PO (06:44)
[2022-12-21] MEDS: BALSALAZIDE DISODIUM 750 MG CAPSULE 2250 MG PO ×2 (06:44→17:05)
[2022-12-21] MEDS: Menthol/Lanolin/Calamine/Znox 113 GM Tube 1 APPLIC TOPICAL ×2 (06:45→17:09)
[2022-12-21] MEDS: Pantoprazole Sodium 40 MG Tablet PO ×2 (06:46→17:05)
[2022-12-21] MEDS: Sucralfate 1 GM Tablet PO ×3 (06:46→17:05)
[2022-12-21] MEDS: Nystatin Powder 15gm Bottle 1 APPLIC TOPICAL ×2 (06:46→17:08)
--- NOTE | 2022-12-21 07:23 | NURSING ---
dr coelho notified to clarify diet order, ok to go back to previous diet. order enterd.
[2022-12-21 08:27] VITALS: BP 135/53; PULSE 66
[2022-12-21] MEDS: Amiodarone 200 MG Tablet 100 MG PO (08:31)
[2022-12-21] MEDS: Ferrous Sulfate 325 MG Tablet PO (08:31)
[2022-12-21] MEDS: Vitamin B Comp W-C Capsule 1 CAP PO (08:31)
[2022-12-21] MEDS: Juven (unflavored) Packet 1 PACKET PO ×2 (08:31→17:05)
[2022-12-21] MEDS: Carvedilol 3.125 MG TABLET PO ×2 (08:32→20:58)
[2022-12-21] MEDS: miSOPROStol 100 MCG TABLET PO ×2 (08:32→17:05)
[2022-12-21] MEDS: traMADol 50 MG Tablet PO (13:42)
--- NOTE | 2022-12-21 14:03 | NURSING ---
dressing changed to BLEs, scant amt of sero drng to LT foot. elevated heels off bed with pillow.
--- NOTE | 2022-12-21 15:05 | NURSING ---
Left eye blood shot per curriculum development specialist report, pt was observed rubbing at eye and c/o dry eyes. new order for artificial tears
[2022-12-21] MEDS: oxyCODONE 5 MG Tablet PO (15:25)
[2022-12-21 16:00] VITALS: BP 157/59; PULSE 68; RESP 14; TEMP 36.7; O2SAT 96
[2022-12-21] MEDS: Glycerin/Hypromellose/PEG400 15 ml Bottle 1 DRP EACH EYE (17:03)
[2022-12-21 20:55] VITALS: BP 107/50; PULSE 70; RESP 16; O2SAT 95
[2022-12-21 21:00] VITALS: PULSE 70; RESP 14; O2SAT 98
[2022-12-21] MEDS: Atorvastatin Calcium 40 MG Tablet PO (21:03)
[2022-12-22] VITALS (10 sets, daily range): BP systolic 134–172; BP diastolic 52–72; PULSE 62–78; RESP 16–18; TEMP 36–36.9; O2SAT 92–98; BMI 22.7
[2022-12-22] MEDS: 0.9% Saline Lock 10 ML Syringe IV (02:39)
[2022-12-22] MEDS: traMADol 50 MG Tablet PO ×2 (02:39→08:58)
[2022-12-22] MEDS: BALSALAZIDE DISODIUM 750 MG CAPSULE 2250 MG PO ×2 (05:57→17:29)
[2022-12-22] MEDS: Levothyroxine 75 MCG Tablet PO (05:57)
[2022-12-22] MEDS: Menthol/Lanolin/Calamine/Znox 113 GM Tube 1 APPLIC TOPICAL ×2 (05:58→17:29)
[2022-12-22] MEDS: Nystatin Powder 15gm Bottle 1 APPLIC TOPICAL ×2 (05:58→17:29)
[2022-12-22] MEDS: Pantoprazole Sodium 40 MG Tablet PO ×2 (05:58→17:29)
[2022-12-22] MEDS: Sucralfate 1 GM Tablet PO ×3 (06:00→17:29)
[2022-12-22] MEDS: Ferrous Sulfate 325 MG Tablet PO (08:58)
[2022-12-22] MEDS: Juven (unflavored) Packet 1 PACKET PO ×2 (08:58→17:29)
[2022-12-22] MEDS: miSOPROStol 100 MCG TABLET PO ×2 (08:59→17:29)
[2022-12-22] MEDS: Vitamin B Comp W-C Capsule 1 CAP PO (08:59)
[2022-12-22] MEDS: Amiodarone 200 MG Tablet 100 MG PO (08:59)
[2022-12-22] MEDS: Carvedilol 3.125 MG TABLET PO ×2 (09:00→21:01)
--- NOTE | 2022-12-22 09:30 | NURSING ---
FOOD SERVICE UTILITY WORKER reported to this nurse that pt fell getting ready to ambulate to BR. Entered room and pt flat on back at foot of bed, walker sitting next to feet, head partially under foot of bed. Rolled bed away from pt. alert & oriented, slow to respond. pt denies pain, but did hit his head on floor. assisted x3 staff members to feet then ambulated to BR. golf ball sized hematoma to occipital area with scant amt of bleeding from abrasion. ice applied. vitals stable. No other visible injuries noted. pt denies any pain. Dr Hale notified and new order for CT scan of head.
--- NOTE | 2022-12-22 10:30 | NURSING ---
Addendum entered by Grace Singh 12/22/22 19:16: xray negative for fx or dislocation. Original Note: PT returned from CT scan, c/o Lt shoulder pain, states he hit his shoulder on bed when he lost his balance and fell backwards. will update dr thomas. pt is having difficulty raising arm up, good strong grasp
[2022-12-22] MEDS: Glycerin/Hypromellose/PEG400 15 ml Bottle 1 DRP EACH EYE (11:00)
[2022-12-22] MEDS: oxyCODONE 5 MG Tablet PO (14:00)
--- NOTE | 2022-12-22 14:11 | RAD_ITS ---
HISTORY: s/p fall. TECHNIQUE: XR Shoulder Min 2 Views. COMPARISON: None. FINDINGS: BONES : No acute fracture identified. Generalized osteopenia. JOINTS: No dislocation. Moderate acromioclavicular degenerative change. OTHER: Midline sternotomy. RAD/Shoulder min 2 Views IMPRESSION: No acute fracture or dislocation identified in the right shoulder. Electronically Signed: Berna Garcia MD at 15:02 EDT ,
--- NOTE | 2022-12-22 15:39 | NURSING ---
son updated on shoulder xray and CT results. son very satisfied with TCU care
[2022-12-22] MEDS: Atorvastatin Calcium 40 MG Tablet PO (21:01)
--- NOTE | 2022-12-22 21:30 | NURSING ---
BID dressing changed at this time per order, patient tolerated well, no drainage observed from LLE or RLE. Neurochecks continue and WNL. No complaints at this time. Awake, alert. A&Ox3. No distress observed or reported. Call light in reach.
[2022-12-23 01:00] VITALS: BP 144/58; PULSE 66; RESP 16; TEMP 36.6; O2SAT 94
[2022-12-23 05:09] VITALS: BP 159/57; PULSE 60; RESP 16; TEMP 37.1; O2SAT 95
[2022-12-23] MEDS: BALSALAZIDE DISODIUM 750 MG CAPSULE 2250 MG PO (05:11)
[2022-12-23] MEDS: Pantoprazole Sodium 40 MG Tablet PO (05:11)
[2022-12-23] MEDS: Levothyroxine 75 MCG Tablet PO (05:11)
[2022-12-23] MEDS: Nystatin Powder 15gm Bottle 1 APPLIC TOPICAL (05:12)
[2022-12-23] MEDS: Menthol/Lanolin/Calamine/Znox 113 GM Tube 1 APPLIC TOPICAL (05:12)
[2022-12-23 05:49] VITALS: BMI 23.3
[2022-12-23 08:12] VITALS: BP 113/51; PULSE 68; RESP 16; TEMP 36.7; O2SAT 94
[2022-12-23] MEDS: Ferrous Sulfate 325 MG Tablet PO (08:15)
[2022-12-23] MEDS: Sucralfate 1 GM Tablet PO (08:16)
[2022-12-23] MEDS: Juven (unflavored) Packet 1 PACKET PO (08:16)
[2022-12-23] MEDS: miSOPROStol 100 MCG TABLET PO (08:16)
[2022-12-23] MEDS: Carvedilol 3.125 MG TABLET PO (08:16)
[2022-12-23] MEDS: Vitamin B Comp W-C Capsule 1 CAP PO (08:16)
[2022-12-23] MEDS: Amiodarone 200 MG Tablet 100 MG PO (08:16)
--- NOTE | 2022-12-23 09:18 | CASEMGMT ---
Social Work BIMS () and PHQ-9 () completed for MDS assessment. Sheila Sloan MSW [employer]
--- NOTE | 2022-12-23 09:27 | NURSING ---
Called report to Tiffanie at [facility]. Provided call back number with any questions/concerns.
[2022-12-23 09:30] VITALS: RESP 16
--- NOTE | 2022-12-23 09:37 | PN.RENAL_ITS ---
Subjective Subjective Following for MYRON on CKD Patient is being discharged to ECF today. No overnight events. No complaints. Objective Data Objective Data Vital Signs: Vital Signs Temp Pulse Resp BP Pulse Ox O2 Del Method 98.1 F 68 16 113/51 L 94 Room Air 12/23/22 08:12 12/23/22 08:12 12/23/22 08:12 12/23/22 08:12 12/23/22 08:12 12/23/22 08:12 Oxygen Delivery Method Room Air Weight: 75.523 kg Body Mass Index (BMI) 23.3 Intake & Output: Intake and Output for Last 24 Hours 12/21/22 12/22/22 12/23/22 23:59 23:59 23:59 Intake Total 960 / 960 720 / 720 360 / 360 Output Total 200 / 200 150 / 150 Balance 760 / 760 570 / 570 360 / 360 Lab / Micro Data Result Diagrams: 12/19/22 08:22 12/19/22 08:22 Micro: Microbiology 12/17/22 18:20 Stool Stool Occult Blood (OSCAR) - Final Occult Blood Positive 12/07/22 05:36 Nasal Secretion SARS-CoV-2 Antigen (Rapid) - Final 12/05/22 05:15 Nasal Secretion SARS-CoV-2 Antigen (Rapid) - Final Radiography Diagnostic Testing: Radiology Impression Shoulder X-Ray 12/22/22 14:11 IMPRESSION: No acute fracture or dislocation identified in the right shoulder. Electronically Signed: Berna Garcia MD at 15:02 EDT Reading Location ID and State: [facility] / [place] Tel , Service support , Physical Exam Narrative Alert and oriented x3, no apparent distress S1-S2, RRR Lung sounds clear anteriorly and posteriorly. No wheezes, rhonchi or rales noted Abdomen soft, nontender, positive bowel sounds Bilateral legs with Manish wraps intact. No pitting edema noted bilateral thighs. Assessment & Plan Assessment/Plan (1) Acute kidney injury: PLAN: Plan 82-year-old male with history of CKD stage 3/4, iron deficiency anemia, thrombo cytopenia and ulcerative colitis admitted for pneumonia.?Nephrology consulted for MYRON superimposed on CKD when patient was in PCU. Patient currently in TCU for therapy. MYRON on CKD stage 3/4.? Baseline creatinine seems to be around 2.0-2.4mg/dL.? Serum creatinine was 2.44 mg/dL in July 2022.? MYRON was possibly from infection, overdiuresis when in PCU. No acute or emergent indication for SYSTEMS INTEGRATION MANAGER, potassium and bicarb acceptable, patient is nonoliguric and appears near euvolemic. Encouraged increase solute intake UA showed proteinuria; urine protein creatinine ratio 492 mg/g.? No hematuria.? Albumin 2.6 Previous renal Dopplers were negative for stenosis, renal ultrasound no hydro.? Postvoid bladder scan was negative. Home medications on hold: Lisinopril and chlorthalidone Blood pressures acceptable on carvedilol. Patient was receiving IV Bumex when in PCU, but held due to worsening renal function. 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 Edema improved. Patient was having multiple loose bms and on 12/16 SCr 2.99, BUN 139. Bumex put on hold. Patient found to have down trending hgb and received PRB C. Last labs: SCr 2.26, BUN 103; both were improving. History of iron deficiency anemia and thrombocytopenia. Saw Dr. Mcintyre.? Normal LDH, haptoglobin and CPK level.? Evaluated by GI, had upper GI which showed moderate Schatzki ring, small hiatal hernia, oozing gastric ulcer which was injected, nonbleeding gastric ulcer which was biopsied and oozing gastric ulcers treated with heater probe. On PPI and sacral fate. CEA/gastrin levels pending hemoglobin improved with PRBC, Hgb went from 7 to 10.6. Likely elevated bun from acute anemia. History of ulcerative colitis on balsalazide Disposition; going to ECF today. Will arrange for hospital follow-up.
[2022-12-25 17:07] LABS: Gastrin, Serum 439 pg/mL (0-115)
== END 2022-12-23 10:22 | disposition intermediate care facility (04) | DRG 177 ==
PROVIDERS: Internal Medicine Gastroenterology; Nurse Practitioner Adult Health; Admitting Provider Family Medicine Geriatric Medicine; PCP Family Medicine; Visit Provider Family Medicine Geriatric Medicine
DX: J15.0 Pneumonia due to Klebsiella pneumoniae (principal); I50.31 Acute diastolic (congestive) heart failure; D61.818 Other pancytopenia; R78.81 Bacteremia; N17.9 Acute kidney failure, unspecified; N18.4 Chronic kidney disease, stage 4 (severe); I13.0 Hypertensive heart and chronic kidney disease with heart failure and stage 1 through stage 4 chronic kidney disease, or unspecified chronic kidney disease; K51.90 Ulcerative colitis, unspecified, without complications; I27.20 Pulmonary hypertension, unspecified; L89.626 Pressure-induced deep tissue damage of left heel; D63.8 Anemia in other chronic diseases classified elsewhere; J43.9 Emphysema, unspecified; I48.0 Paroxysmal atrial fibrillation; F10.20 Alcohol dependence, uncomplicated; D50.9 Iron deficiency anemia, unspecified; E03.9 Hypothyroidism, unspecified; E78.00 Pure hypercholesterolemia, unspecified; I25.10 Atherosclerotic heart disease of native coronary artery without angina pectoris; E53.8 Deficiency of other specified B group vitamins; K44.9 Diaphragmatic hernia without obstruction or gangrene; Z79.82 Long term (current) use of aspirin; Z87.891 Personal history of nicotine dependence; Z79.899 Other long term (current) drug therapy; Z79.890 Hormone replacement therapy; K25.9 Gastric ulcer, unspecified as acute or chronic, without hemorrhage or perforation; S90.821D Blister (nonthermal), right foot, subsequent encounter; S90.822D Blister (nonthermal), left foot, subsequent encounter; X58.XXXD Exposure to other specified factors, subsequent encounter; S80.822D Blister (nonthermal), left lower leg, subsequent encounter
CPT/HCPCS: 36415; 72100; 73030; 73502; 80048; 80053; 82274; 82378; 82941; 83735; 85025; 86850; 86900; 86901; 86920; 86922; 87811; 97110; 97116; 97162; 97166; 97530; 97535; 97802; J7050; A4216; J0696

== ENCOUNTER 2022-12-18 08:57 | Outpatient (CLI) | payer SELFPAY ==
[2022-12-18 09:23] VITALS: BP 127/61; PULSE 68; RESP 16; TEMP 36.2; O2SAT 99
[2022-12-18 09:58] VITALS: BP 126/53; PULSE 66; RESP 16; TEMP 35.8; O2SAT 96
[2022-12-18 11:01] VITALS: BP 121/51; PULSE 67; RESP 16; TEMP 35.8; O2SAT 97
[2022-12-18] MEDS: Furosemide 20 MG/2 ML VIAL IV (11:40)
[2022-12-18 12:05] VITALS: BP 118/52; PULSE 66; RESP 16; TEMP 35.9; O2SAT 97
[2022-12-18 13:05] VITALS: BP 131/49; PULSE 60; RESP 16; TEMP 36.3
[2022-12-18 14:05] VITALS: BP 122/52; PULSE 62; RESP 16; TEMP 36.2
== END 2022-12-18 08:58 | disposition home or self-care (01) ==
LOC: MEDOUTP 08:59
PROVIDERS: PCP Family Medicine; Visit Provider Family Medicine Geriatric Medicine
DX: D50.9 Iron deficiency anemia, unspecified (principal)
CPT/HCPCS: 36415; 36430; 86850; 86900; 86901; 86920; 86922; J7040; P9016; A4216; J1940

== ENCOUNTER 2022-12-20 07:24 | Day surgery (SDC) | payer MEDICARE, OTHER, SELFPAY ==
[2022-12-20 15:14] VITALS: PULSE 65; RESP 16; TEMP 36.6; O2SAT 96; BMI 55.6
--- NOTE | 2022-12-20 16:15 | EGD_PTH ---
PATIENT: EULOGIO NOGUERA LOC: EN U#:[id number] AGE/SX: 82/M ROOM: RE12/20/[address]: Dr. Irving Horowitz DO : 1940 BED: DIS: 12/20/2022 SPEC #: [id number] RECD: 12/20/22 20:12 STATUS: KANDICE REMarlene #: [id number] AMBROSE: 12/20/22 16:[address]: Irving Horowitz DEPT: SURGICAL PATHOLOGY RECD BY: Anais Roper ENTERED: 12/23/22 09:35 SP TYPE: EGD BIOPSY [facility] DR: Dr. Rosa Maria Santacruz MD Tissues: Gastric mucous membrane Procedures: Special Stain Group I Surgery Specimen Level IV AFB Stain (control) GMS Stain (control) HEADER OPERATION: [place] [place] DIAGNOSIS: Anemia, GI bleed TISSUE SUBMITTED: Gastric ulcer MICROSCOPIC DIAGNOSIS Gastric ulcer, biopsy: Ulceration with associated reactive glandular changes, acute and chronic gastritis and fibrinopurulent material. Negative for acid-fast bacilli and fungal organisms. See comment. AM:janusz 12/24/2022 COMMENT The results of immunohistochemistry for Helicobacter pylori will be reported separately ([id number]). AFB and GMS stains with matched controls were used in the evaluation of this case. MICROSCOPIC DESCRIPTION Slides are reviewed. GROSS DESCRIPTION Received in fixative is one container labeled with the patient's name and designated gastric ulcer. The specimen consists of multiple irregular fragments of light iverson soft tissue that in aggregate measure 1.0 x 0.8 x 0.1 cm. The specimen is totally submitted in one cassette. / KEYONNA:[email or web address] 12/23/2022 TC:2 CPT: 77031, 94388 x2
--- NOTE | 2022-12-20 16:15 | IMM_PTH ---
PATIENT: EULOGIO NOGUERA LOC: EN U#:[id number] AGE/SX: 82/M ROOM: RE12/20/[address]: Dr. Irving Horowitz DO : 1940 BED: DIS: 12/20/2022 SPEC #: [id number] RECD: 12/23/22 13:29 STATUS: KANDICE REMarlene #: [id number] AMBROSE: 12/20/22 16:[address]: Irving Horowitz DEPT: IMMUNOHISTOCHEMISTRY RECD BY: Christel Chow ENTERED: 12/23/22 13:30 SP TYPE: IMMUNO OTHR DR: Dr. Rosa Maria Santacruz MD Tissues: Stomach, NOS Procedures: H Pylori (initial) PHYSICIAN & INSTITUTION [place] [id number] SPECIMEN INFORMATION: Tissue Source: Gastric ulcer Clinical Info: Anemia, GI bleed Specimen Number: [id number] CPT code: 35798 METHODOLOGY: Deparaffinized sections of prefer/formalin-fixed tissue or PAP/DQ stained slides are incubated with monoclonal/polyclonal antibodies/oligonucleotide probes. Localization is made via biotin free immunoperoxidase method. Appropriate controls are performed and reacted as expected. Results on target cell population are indicated in the following table: RESULTS: ANTIBODY / CLONE RESULT H Pylori (polyclonal) negative These tests were developed and their performance characteristics determined by [facility]. They may not have been cleared or approved by the [place]. Food and Drug Administration. The FDA has determined that such clearance or approval is not necessary. The above immunohistochemical/dualISH markers are ordered and reviewed by the Pathologist. INTERPRETATION: Gastric ulcer, biopsy: Negative for Helicobacter pylori organisms. AM:janusz 12/24/2022
[2022-12-20 17:15] VITALS: BP 127/47; PULSE 59; RESP 16; TEMP 36.7; O2SAT 98
--- NOTE | 2022-12-20 17:16 | OP.EGD_ITS ---
Patient Name: Amaury Arreola Procedure Date: 12/20/2022 4:47 PM Date of : 1940 Age: 82 Procedure: Upper GI endoscopy Indications: Iron deficiency anemia Providers: Irving Horowitz DO Medicines: Monitored Anesthesia Care Patient Profile: This is an 82 year old male. Refer to note in patient chart for documentation of history and physical. Patient has symptoms of acute epigastric abdominal pain. Complications: No immediate complications. Procedure: Pre-Anesthesia Assessment: - Prior to the procedure, a History and Physical was performed, and patient medications and allergies were reviewed. The risks and benefits of the procedure and the sedation options and risks were discussed with the patient. All questions were answered and informed consent was obtained. Patient identification and proposed procedure were verified by the physician. Mental Status Examination: normal. Prophylactic Antibiotics: The patient does not require prophylactic antibiotics. Prior Anticoagulants: The patient has taken no previous anticoagulant or antiplatelet agents. After reviewing the risks and benefits, the patient was deemed in satisfactory condition to undergo the procedure. The anesthesia plan was to use monitored anesthesia care (MAC). Immediately prior to administration of medications, the patient was re-assessed for adequacy to receive sedatives. The heart rate, respiratory rate, oxygen saturations, blood pressure, adequacy of pulmonary ventilation, and response to care were monitored throughout the procedure. The physical status of the patient was re-assessed after the procedure. After obtaining informed consent, the endoscope was passed under direct vision. Throughout the procedure, the patient's blood pressure, pulse, and oxygen saturations were monitored continuously. The Endoscope was introduced through the mouth, and advanced to the second part of duodenum. The upper GI endoscopy was accomplished without difficulty. The patient tolerated the procedure well. Scope In: 4:59:40 PM Scope Out: 5:07:14 PM Total Procedure Duration Time 0 hours 7 minutes 34 seconds Findings: A moderate Schatzki ring was found in the lower third of the esophagus. A guidewire was placed and the scope was withdrawn. Dilation was performed with a Savary dilator with no resistance at 42 Fr. The dilation site was examined and showed moderate improvement in luminal narrowing. Estimated blood loss was minimal. A small hiatal hernia was present. One oozing cratered gastric ulcer with pigmented material was found in the gastric body. The lesion was 20 mm in largest dimension. Area was successfully injected with 5 mL of a 1:10,000 solution of epinephrine for drug delivery. Estimated blood loss was minimal. One non-bleeding cratered gastric ulcer with no stigmata of bleeding was found on the lesser curvature of the stomach. The lesion was 6 mm in largest dimension. Biopsies were taken with a cold forceps for histology. Verification of patient identification for the specimen was done. Estimated blood loss was minimal. Two oozing cratered gastric ulcers with a visible vessel were found on the greater curvature of the stomach. The largest lesion was 6 mm in largest dimension. Coagulation for hemostasis using heater probe was successful. Estimated blood loss was minimal. No gross lesions were noted in the duodenal bulb. Impression: - Moderate Schatzki ring. Dilated. - Small hiatal hernia. - Oozing gastric ulcer with pigmented material. Injected. - Non-bleeding gastric ulcer with no stigmata of bleeding. Biopsied. - Oozing gastric ulcers with a visible vessel. Treated with a heater probe. - No gross lesions in the duodenal bulb. Recommendation: - Transfer patient to TCU. - Use Protonix (pantoprazole) 40 mg PO BID. - Use sucralfate tablets 1 gram PO BID. - Check Gastrin Level - Check CEA - The patient has taken no previous anticoagulant or antiplatelet agents. - No aspirin, ibuprofen, naproxen, or other non-steroidal anti-inflammatory drugs for 4 weeks. Procedure Code(s): --- Professional --- 41530, 59, Esophagogastroduodenoscopy, flexible, transoral; with control of bleeding, any method 46786, Esophagogastroduodenoscopy, flexible, transoral; with insertion of guide wire followed by passage of dilator(s) through esophagus over guide wire 95392, 59, Esophagogastroduodenoscopy, flexible, transoral; with directed submucosal injection(s), any substance 95388, 59,51, Esophagogastroduodenoscopy, flexible, transoral; with biopsy, single or multiple CPT copyright 2017 [employer]. All rights reserved. The codes documented in this report are preliminary and upon harness mender review may be revised to meet current compliance requirements. Irving Horowitz DO 12/20/2022 5:16:31 PM This report has been signed electronically. Number of Addenda: 0 Note Initiated On: 12/20/2022 4:47 PM
--- NOTE | 2022-12-20 17:17 | OP.CCLET_ITS ---
12/20/2022 Rosa Maria Santacruz [address] [place] [address] Re : Upper GI endoscopy procedure for Amaury Arreola Dear Dr. Santacruz This procedure was performed on Tuesday, December 20, 2022. My impressions and recommendations are as follows: Impressions : - Moderate Schatzki ring. Dilated. - Small hiatal hernia. - Oozing gastric ulcer with pigmented material. Injected. - Non-bleeding gastric ulcer with no stigmata of bleeding. Biopsied. - Oozing gastric ulcers with a visible vessel. Treated with a heater probe. - No gross lesions in the duodenal bulb. Recommendations : - Transfer patient to TCU. - Use Protonix (pantoprazole) 40 mg PO BID. - Use sucralfate tablets 1 gram PO BID. - Check Gastrin Level - Check CEA - The patient has taken no previous anticoagulant or antiplatelet agents. - No aspirin, ibuprofen, naproxen, or other non-steroidal anti-inflammatory drugs for 4 weeks. My findings are described in the full procedure note, which is enclosed. If I can be of further assistance, please feel free to contact me at . Sincerely, Irving Horowitz, 12/20/2022 5:16:31 PM This report has been signed electronically.
[2022-12-20 17:18] VITALS: BP 142/52; PULSE 61; RESP 16; O2SAT 99
[2022-12-20 17:23] VITALS: BP 138/51; PULSE 61; RESP 16; O2SAT 98
[2022-12-20 17:28] VITALS: BP 157/77; PULSE 59; RESP 16; TEMP 36.7; O2SAT 99
== END 2022-12-20 17:45 | disposition home or self-care (01) ==
LOC: EN 12-23 07:26 → AC 12-23 07:26
PROVIDERS: PCP Family Medicine; Referring Provider Family Medicine; Visit Provider Internal Medicine Gastroenterology
PROC: 0DJ08ZZ Inspection of Upper Intestinal Tract, Via Natural or Artificial Opening Endoscopic (ICD-10-PCS; CPT 43235; principal; 2022-12-20 16:10)
DX: K29.00 Acute gastritis without bleeding (principal); I50.31 Acute diastolic (congestive) heart failure; K51.90 Ulcerative colitis, unspecified, without complications; N18.4 Chronic kidney disease, stage 4 (severe); I48.0 Paroxysmal atrial fibrillation; K22.2 Esophageal obstruction; D50.9 Iron deficiency anemia, unspecified; K44.9 Diaphragmatic hernia without obstruction or gangrene; I25.10 Atherosclerotic heart disease of native coronary artery without angina pectoris; I12.9 Hypertensive chronic kidney disease with stage 1 through stage 4 chronic kidney disease, or unspecified chronic kidney disease; E78.00 Pure hypercholesterolemia, unspecified; E03.9 Hypothyroidism, unspecified; Z87.891 Personal history of nicotine dependence; Z79.899 Other long term (current) drug therapy
CPT/HCPCS: 43255; 43248; 43239; 88305; 88312; 88342; J7120

== ENCOUNTER → 2022-12-22 | Outpatient (CLI) | payer MEDICARE, OTHER, SELFPAY ==
--- NOTE | 2022-12-22 10:06 | CT_ITS ---
HISTORY: S/P FALL. TECHNIQUE: Multiple axial images were obtained of the head without intravenous contrast. A radiation dose optimization technique was used for this scan. 251 images. COMPARISON: 10/30/2020. FINDINGS: BRAIN PARENCHYMA: Multiple foci and zones of low attenuation in the bilateral cerebral white matter compatible with chronic small vessel ischemic gliosis. No acute intra-axial hemorrhage identified. CSF SPACES: Generalized volume loss. No midline shift or other significant mass effect. No acute extra-axial hemorrhage seen. OTHER: Intact calvarium. Mild left posterior parietal scalp hematoma. No significant air fluid levels in the paranasal sinuses or mastoid air cells. Bilateral lens resections. CT/Brain/Head without Contrast IMPRESSION: No acute intracranial process identified. Chronic involutional and white matter changes. Left posterior scalp contusion. Electronically Signed: Berna Garcia MD at 11:20 EDT ,
== END | disposition home or self-care (01) ==
LOC: CT 10:04
PROVIDERS: PCP Family Medicine; Referring Provider Family Medicine Geriatric Medicine; Visit Provider Family Medicine Geriatric Medicine
DX: S00.03XA Contusion of scalp, initial encounter (principal)
CPT/HCPCS: 70450

== ENCOUNTER → 2022-12-24 | Outpatient (REF) | payer MEDICARE, OTHER, SELFPAY ==
[2022-12-24 09:41] LABS: Absolute Neutrophil Count 4.9 X10^3/uL (2.0-7.7); Basophil# 0.04 X10^3/uL; Basophil% 0.6 % (0-1); Eosinophil# 0.21 X10^3/uL; Eosinophils% 3.2 % (0-5); Hematocrit 30.4 % (40-54); Hemoglobin 9.7 g/dL (13.0-16.5); Lymphocyte % 12.1 % (19-41); Mean Corp Hgb Conc 31.9 g/dL (32-36); Mean Corpuscular Hgb 33.1 pg (27.0-32.0); Mean Corpuscular Volume 103.8 fL (80-94); Mean Platelet Vol. 10.2 fl (6.2-12.0); Monocyte% 9.1 % (0-10); NRBC Flagged by Analyzer 0 % (0-5); Neutrophil # 4.93 X10^3/uL (2.7-7.7); Neutrophil % 74.4 % (47-70); Platelet Count 144 K/mm3 (150-450); RBC Distribution Width CV 14.6 % (11.6-14.6); RBC Distribution Width SD 56.1 fl (35.1-43.9); Red Blood Count 2.93 M/mm3 (4.6-6.2); White Blood Count 6.6 K/mm3 (4.4-11.0)
[2022-12-24 09:57] LABS: ALB/GLOB Ratio 0.7 RATIO (0.9-2.4); AST(SGOT) 18 U/L (15-37); Alanine Aminotransfer ALT/SGPT 19 U/L (16-61); Albumin, Serum 2.2 g/dL (3.2-5.0); Alkaline Phosphatase 89 U/L (45-117); Anion Gap 6 (5-15); BUN 64 mg/dL (7-18); BUN/Creat Ratio 32.7 RATIO (10-20); Chloride 109 mmol/L (98-107); Cholesterol 105 mg/dL (200); Creatinine, Serum 1.96 mg/dL (0.70-1.30); EST Glomerular Filtration Rate 35 mL/min (>60); Est Glom Filt Rate - Afr Amer 42 mL/min (>60); Globulin 3.1 g/dL (2.2-4.2); Glucose 88 mg/dL (74-106); High Density Lipoprotein 48 mg/dL; Potassium 4.1 mmol/L (3.5-5.1); Protein, Total 5.3 g/dL (6.4-8.2); Sodium Level 141 mmol/L (136-145); Triglycerides 61 mg/dL; Very Low Density Lipoprotein 12 mg/dL (5-40)
== END ==
LOC: OLS.WHLTCC 05:00
PROVIDERS: PCP Family Medicine; Visit Provider Internal Medicine
DX: S81.802A Unspecified open wound, left lower leg, initial encounter (principal); I73.9 Peripheral vascular disease, unspecified; N18.4 Chronic kidney disease, stage 4 (severe); I48.91 Unspecified atrial fibrillation; J43.9 Emphysema, unspecified; R06.02 Shortness of breath; I25.10 Atherosclerotic heart disease of native coronary artery without angina pectoris; I12.9 Hypertensive chronic kidney disease with stage 1 through stage 4 chronic kidney disease, or unspecified chronic kidney disease
CPT/HCPCS: 36415; 80053; 80061; 85025; 87070; 87077; 87186; 87205

== ENCOUNTER → 2023-01-01 | Outpatient (REF) | payer MEDICARE, OTHER, SELFPAY ==
[2023-01-01 10:44] LABS: Absolute Lymphocyte Count 0.83 X10^3/uL (0.83-4.51); Absolute Neutrophil Count 3.4 X10^3/uL (2.0-7.7); Basophil# 0.02 X10^3/uL; Basophil% 0.4 % (0-1); Eosinophil# 0.14 X10^3/uL; Eosinophils% 2.9 % (0-5); Hematocrit 28.3 % (40-54); Lymphocyte # 0.83 X10^3/ul (0.83-4.51); Lymphocyte % 17.3 % (19-41); Mean Corp Hgb Conc 31.8 g/dL (32-36); Mean Corpuscular Hgb 32.7 pg (27.0-32.0); Mean Corpuscular Volume 102.9 fL (80-94); Mean Platelet Vol. 9.6 fl (6.2-12.0); Monocyte# 0.44 X10^3/uL; Monocyte% 9.2 % (0-10); NRBC Flagged by Analyzer 0 % (0-5); Neutrophil # 3.36 X10^3/uL (2.7-7.7); Platelet Count 177 K/mm3 (150-450); RBC Distribution Width CV 14.2 % (11.6-14.6); RBC Distribution Width SD 54.3 fl (35.1-43.9); Red Blood Count 2.75 M/mm3 (4.6-6.2); White Blood Count 4.8 K/mm3 (4.4-11.0)
[2023-01-01 10:57] LABS: Anion Gap 4 (5-15); BUN 43 mg/dL (7-18); BUN/Creat Ratio 19.1 RATIO (10-20); Calcium,Total 8.6 mg/dL (8.5-10.1); Chloride 110 mmol/L (98-107); Creatinine, Serum 2.25 mg/dL (0.70-1.30); EST Glomerular Filtration Rate 30 mL/min (>60); Est Glom Filt Rate - Afr Amer 36 mL/min (>60); Glucose 82 mg/dL (74-106); Potassium 4.3 mmol/L (3.5-5.1); Sodium Level 140 mmol/L (136-145)
== END ==
LOC: OLS.WHLTCC 05:00
PROVIDERS: PCP Family Medicine; Visit Provider Internal Medicine
DX: I12.9 Hypertensive chronic kidney disease with stage 1 through stage 4 chronic kidney disease, or unspecified chronic kidney disease (principal); N18.9 Chronic kidney disease, unspecified; R06.02 Shortness of breath; N39.490 Overflow incontinence; D69.6 Thrombocytopenia, unspecified; E03.9 Hypothyroidism, unspecified
CPT/HCPCS: 36415; 80048; 85025

== ENCOUNTER 2023-01-03 06:38 | Emergency (ER) | payer MEDICARE, OTHER, SELFPAY ==
[2023-01-03 06:40] VITALS: BP 158/66; PULSE 68; RESP 18; TEMP 37; O2SAT 97; BMI 22.3
--- NOTE | 2023-01-03 07:06 | CT_ITS ---
EXAM: CT HEAD WITHOUT INTRAVENOUS CONTRAST CLINICAL INDICATION: head trauma TECHNIQUE: Multiple axial images were obtained of the head without intravenous contrast. This CT exam was performed using one or more of the following dose reduction techniques: automated exposure control, adjustment of the mA and/or kV according to patient size, and/or use of iterative reconstruction technique. RADIATION DOSE: CTDIvol = 44.99 mGy, DLP = 829.85 mGy-cm COMPARISON: December 20, 2022, there was a moderate left posterior scalp contusion at that time with no visible intracranial hemorrhage. FINDINGS: BRAIN AND EXTRA-AXIAL SPACES: There is a small newly seen but only mildly hyperdense focus of presumed subacute hematoma with surrounding vasogenic edema in the left anterior-medial frontal lobe, not clearly seen on prior exam but less hyperdense than expected for acute hematoma, with associated new low-attenuation at least subacute-appearing edema. The hyperdense focus measures 1 cm x 0.9 cm x 1.2 cm. No evidence of acute infarct. No intracranial mass or mass effect. There is preservation of the guzman/white matter interface. Posterior fossa structures are unremarkable. Ventricles are appropriate for age. No hydrocephalus. Basal cisterns are patent. No extra-axial hemorrhage. BONES/JOINTS: Unremarkable. No discrete lytic or blastic abnormalities. SOFT TISSUES: More rounded appearance of the left posterior scalp contusion-hematoma, no additional scalp contusion or hematoma. VASCULATURE: Moderate intracranial vascular calcifications. SINUSES: Unremarkable as visualized. Clear. MASTOID AIR CELLS: Unremarkable. Clear. ORBITS: Visualized globes, extraocular muscles, optic nerves and retrobulbar fat appear unremarkable. CT/Brain/Head without Contrast IMPRESSION: A newly seen 1.2 cm but only mildly hyperdense focus in the left frontal lobe with newly seen surrounding vasogenic edema appears to be most consistent with subacute hematoma. Retrospectively there was a very subtle dense focus in this location but it was smaller without edema, measuring about 8 on prior sagittal images . Much less likely better seen meningioma. Similar left posterior scalp contusion-hematoma. No new scalp findings. No midline shift. No extra-axial hematoma. N.B. : The above Results were Read Back by Анна Andres MD to Lupe Joe DO, and understanding confirmed on 01/03/2023 07:56:24 (ET). Electronically Signed: Анна Andres MD at 7:57 EDT ,
--- NOTE | 2023-01-03 07:06 | EX.ED.GENINJ ---
HPI History of Present Illness Chief Complaint: Fall Detail of Chief Complaint: Fall Informant: patient Narrative Narrative: Patient presents to the emergency department after having a fall this morning. Patient states that he woke up to use the restroom and on the way back he turned his walker and his feet tripped causing him to fall. Patient did strike his head on the wall but no loss of consciousness. Patient fell onto his left buttock and left hip and complains of pain with movement of the hip. He denies neck pain. He denies chest pain. Denies abdominal pain. [facility] Medical History (Updated 01/03/23 @ 08:[address] Lupe Joe, DO) Alcohol use Atherosclerotic heart disease of [place] coronary artery without angina pectoris Atrial fibrillation and flutter Cardiology follow-up encounter Carotid artery stenosis Dietary restriction Elevated troponin Emphysema of lung Essential hypertension Fever Former smoker Hematemesis/vomiting blood High cholesterol History of atrial fibrillation History of cardioversion (~05/09/20) History of coronary artery disease History of echocardiogram History of edema History of GI bleed History of right inguinal hernia History of stress test History of transesophageal echocardiography (ROSI) History of umbilical hernia Hx of ulcerative colitis Hypercholesterolemia Hyperlipidemia Hypertension 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 Mitral valve insufficiency PAD (peripheral artery disease) Premature atrial contractions Right carotid bruit Subclavian artery stenosis, left (~10/15/19) Thrombocytopenia Thrombocytopenia Thyroid disease Ulcerative colitis Upper GI bleed Upper GI bleed Walker as ambulation aid Wears glasses Wears hearing aid Home Medications ferrous sulfate 325 mg (65 mg iron) tablet 325 mg PO DAILY vitamin 05/28/15 [History Last Taken 05/09/20] zinc gluconate 50 mg tablet 50 mg PO DAILY supplement 05/28/15 [History Last Taken 05/09/20] vitamin B complex 1 each PO DAILY vitamin 02/07/16 [History Last Taken 05/09/20] aspirin 81 mg tablet,delayed release 81 mg PO DAILY@0800 heart [facility] 08/29/16 [History Last Taken 04/23/21] levothyroxine 50 mcg tablet 75 mcg PO DAILY thyroid 06/13/20 [History Last Taken Unknown] balsalazide 750 mg capsule (Colazal) 2,250 mg PO BID Check with primary doctor 05/16/21 [History Last Taken Unknown] amiodarone 200 mg tablet 100 mg PO DAILY heart 12/03/22 [History Last Taken Unknown] atorvastatin 40 mg tablet (Lipitor) 40 mg PO DAILY cholesterol 12/03/22 [History Last Taken Unknown] carvedilol 3.125 mg tablet 3.125 mg PO BID heart 12/03/22 [History Last Taken Unknown] acetaminophen 500 mg tablet 1,000 mg (2 x 500 mg) PO Q6H PRN PRN Pain Score 1-5 #0 tabs 12/19/22 [Rx Last Taken Unknown] arginine 7 gram-glutam 7 gram-CaHMB 1.5 [id number] oral pwd pkt (Fletcher (with collagen)) 1 packet PO BIDCM #0 ea 12/19/22 [Rx Last Taken Unknown] menthol 0.44 %-zinc oxide 20.6 % topical ointment (Calmoseptine) 1 applic topical BID #0 grams 12/19/22 [Rx Last Taken Unknown] nystatin 100,000 unit/gram topical powder (Nyamyc) 1 applic topical BID #0 grams 12/19/22 [Rx Last Taken Unknown] oxycodone 5 mg tablet 5 mg PO Q4H PRN PRN Pain Score 6-10 3 days #18 tabs 12/19/22 [Rx Last Taken Unknown] sennosides 8.6 mg-docusate sodium 50 mg tablet (Stool Softener-Stimulant Laxative) 1 tab PO BID PRN Constipation #0 tabs 12/19/22 [Rx Last Taken Unknown] tramadol 50 mg tablet 50 mg PO Q6H PRN PRN Pain Score 6-10 3 days #12 tabs 12/19/22 [Rx Last Taken Unknown] misoprostol 100 mcg tablet 100 mcg PO BIDCM #0 tabs 12/20/22 [Rx Last Taken Unknown] pantoprazole 40 mg tablet,delayed release 40 mg PO BID #0 tabs 12/20/22 [Rx Last Taken Unknown] sucralfate 1 gram tablet 1 g PO TID@0700,1100,1600 #0 tabs 12/20/22 [Rx Last Taken Unknown] Allergy/AdvReac Type Severity Reaction Status Date / Time hydrochlorothiazide Allergy Severe Rash Verified 01/03/23 06:46 furosemide [From Lasix] Allergy Severe Verified 01/03/23 06:46 Rash Itchy lovastatin [From Mevacor] Allergy Rash Verified 01/03/23 06:46 amlodipine AdvReac Swelling Verified 01/03/23 06:46 Family History Father CAD (coronary artery disease) Mother Cancer breast Surgical History Aortocoronary bypass status (~02/12/17) History of cardiac catheterization History of hand surgery History of right inguinal hernia repair History of umbilical hernia repair History of vasectomy Hx of CABG Hx of colonoscopy Hx of esophagogastroduodenoscopy Hx of heart bypass surgery S/P right inguinal hernia repair S/P umbilical hernia repair, follow-up exam Status post insertion of drug-eluting stent into right coronary artery for coronary artery disease (~04/2009) Social History adopted: No household members: spouse housing: house number of children: 2 current occupational status: retired Smoking Status: Former smoker Tobacco: How many years used: 50 (stopped about 10 yrs ago) how long ago did patient quit smokin years ago alcohol intake: current alcohol intake frequency: 3 or more drinks per day Alcohol type: beer, wine and hard liquor substance use type: does not use caffeine: Yes Type: coffee Number of servings: 2 ROS ROS ED Review of Systems ROS Unobtainable: other Constitutional Constitutional ED: Reports lethargy; Denies chills, fever(s), sweats or weight loss Eyes Eyes: Denies blurry vision, change in vision or diplopia ENT ENT ED: Denies rhinorrhea or sore throat Cardiovascular Cardiovascular: Denies chest pain, orthopnea or racing heartbeat Respiratory/Chest Respiratory/Chest: Denies cough, dyspnea, dyspnea on exertion, orthopnea or sputum Gastrointestinal Gastrointestinal: Denies abdominal pain, diarrhea, nausea or vomiting Genitourinary Genitourinary ED: Denies dysuria, hematuria or urinary frequency Musculoskeletal Musculoskeletal: Reports other Details: Left hip pain ; Denies arthralgias, back pain, myalgias or neck pain Integumentary Denies abscess, Abrasions or rash Neurologic Neurologic: Denies headache(s) or weakness Psychiatric Psychiatric: Denies anxiety, depression or suicidal thoughts Endocrine Endocrinology: Denies polydipsia, polyphagia or polyuria Hematologic/Lymphatic Hematologic/Lymphatic: Denies easy bleeding, easy bruising or lymphadenopathy Allergic/Immunologic Allergic/Immunologic ED: Denies mouth swelling, tongue swelling or urticaria EXAM Physical Exam Const Vital Signs: 01/03/23 06:40 01/03/23 08:30 01/03/23 08:47 Temperature 98.6 F Temperature Source Temporal Pulse Rate 68 62 62 Respiratory Rate 18 16 16 Blood Pressure 158/66 H 166/96 H 169/66 H Blood Pressure Mean 96 119 100 Pulse Ox 97 95 96 Oxygen Delivery Method Room Air Room Air Room Air 01/03/23 09:22 Temperature Temperature Source Pulse Rate Respiratory Rate Blood Pressure 166/96 H Blood Pressure Mean 119 Pulse Ox Oxygen Delivery Method Positive well nourished and well developed General Appearance ED: well developed and NAD HEENT Reports TM's clear and moist mucous membranes normocephalic and atraumatic; Negative for trauma or tenderness Tympanic Membrane ED: Yes TM's clear Eyes PERRL and EOMs intact bilaterally General Eye ED: Negative for pale conjunctiva or scleral icterus Neck no lymphadenopathy, supple and no JVD General: Negative for tenderness Chest Wall inspection of chest normal and palpation of chest normal Chest: Negative for tenderness Resp normal respiratory effort and clear to auscultation bilaterally Effort and Inspection: Negative for respiratory distress or pain with movement Auscultation: Negative for rhonchi, wheezes or diminished lung sounds Cardio regular rate, regular rhythm, S1 normal heart sound, S2 normal heart sound and no murmurs Peripheral Pulses: pulses 2+ throughout GI normal to inspection, nondistended, normoactive bowel sounds, soft to palpation, non-tender, non-distended and no masses Back/Spine no CVA tenderness and no thoracic nor lumbar tenderness Extremity Extremity Narrative: Patient with tenderness over the left hip. No shortening or external rotation noted. He does have pain with straight leg raising. No significant pain with logrolling. Neurovascularly intact distally. General Extremety ED: Negative for edema General Extremity: Negative for edema Neuro oriented x3, CN's II-XII intact bilaterally, no sensory deficits noted and gait normal Sensorium / Orientation: awake, alert, oriented to person, oriented to place and oriented to time Motor Exam: strength 5/5 throughout and strength abnormal Psych mental status grossly normal Skin no rashes or lesions noted and no wounds MDM MDM MDM Narrative Medical decision making narrative: Patient with a mechanical fall. Patient complaining left hip pain. Initially CT scan of the brain was obtained given his history of hitting his head and given his age. Patient also had x-rays of the left hip and pelvis. On my interpretation patient has a left intertrochanteric hip fracture. Basic labs were ordered and EKG obtained. EKG showed a sinus rhythm with a rate of 60 bpm with nonspecific intraventricular conduction block. Patient does not want a thing for pain. Will discuss case with orthopedics as well as hospitalist to evaluate patient for admission CT imaging of the brain was obtained and radiologist read this as subacute left frontal hematoma with vasogenic edema. It was noted that patient had evidence of this on prior CT scan from December 22. Discussed with hospitalist further and they recommended that we transfer patient to trauma center. Case discussed with [facility] and patient accepted by Dr. Lai in the emergency department. Lab Data Attestation: I reviewed the patient's lab results. Labs: Laboratory Results - last 24 hr 01/03/23 07:45 WBC 5.9 RBC 2.96 L Hgb 9.5 L Hct 30.3 L MCV 102.4 H MCH 32.1 H MCHC 31.4 L RDW Std Deviation 53.4 H RDW Coeff of Chanel 14.1 Plt Count 203 MPV 9.4 Immature Gran % (Auto) 0.700 Neut % (Auto) 72.5 H Lymph % (Auto) 13.5 L [place] % (Auto) 9.7 Eos % (Auto) 2.9 Baso % (Auto) 0.7 Absolute Neuts (auto) 4.3 Absolute Lymphs (auto) 0.79 L Nucleated RBC % 0 Sodium 139 Potassium 5.0 Chloride 107 Carbon Dioxide 28.0 Anion Gap 4 L BUN 41 H Creatinine 2.29 H Estim Creat Clear Calc 25.94 Est GFR (MDRD) Af Amer 35 L Est GFR (MDRD) Non-Af 29 L BUN/Creatinine Ratio 17.9 Glucose 99 Calcium 8.8 Radiography Diagnostic Testing: Clinical Impression(s) from Imaging Studies Brain CT 01/03/23 07:06 IMPRESSION: A newly seen 1.2 cm but only mildly hyperdense focus in the left frontal lobe with newly seen surrounding vasogenic edema appears to be most consistent with subacute hematoma. Retrospectively there was a very subtle dense focus in this location but it was smaller without edema, measuring about 8 on prior sagittal images . Much less likely better seen meningioma. Similar left posterior scalp contusion-hematoma. No new scalp findings. No midline shift. No extra-axial hematoma. N.B. : The above Results were Read Back by Анна Andres MD to Lupe Joe DO, and understanding confirmed on 01/03/2023 07:56:24 (ET). Electronically Signed: Анна Andres MD at 7:57 EDT Reading Location ID and State: [facility] / [place] Tel , Service support , ADDENDUM: 01/03/23 0804 IMPRESSION: A newly seen 1.2 cm but only mildly hyperdense focus in the left frontal lobe with newly seen surrounding vasogenic edema appears to be most consistent with subacute hematoma. Retrospectively there was a very subtle dense focus in this location but it was smaller without edema, measuring about 8 on prior sagittal images . Much less likely better seen meningioma. Similar left posterior scalp contusion-hematoma. No new scalp findings. No midline shift. No extra-axial hematoma. N.B. : The above Results were Read Back by Анна Andres MD to Lupe Joe DO, and understanding confirmed on 01/03/2023 07:56:24 (ET). Electronically Signed: Анна Andres MD at 7:57 EDT Reading Location ID and State: [facility] / [place] Tel , Service support , Hip/Pelvis X-Ray 01/03/23 07:10 IMPRESSION: Left intertrochanteric femur fracture, new from December 10, 2022. No hip dislocation. N.B. : Lupe Joe DO, confirmed on 01/03/2023 07:41:15 (ET) that the healthcare facility has received the radiology report. Electronically Signed: Анна Andres MD at 7:40 EDT Reading Location ID and State: [facility] / [place] Tel , Service support , Chest X-Ray 01/03/23 07:20 IMPRESSION: Slight blunting of the right lateral costophrenic angle. No other acute intrathoracic abnormality. Cardiomegaly and postoperative changes. Clearance of right retrocardiac opacity. Electronically Signed: Анна Andres MD at 7:43 EDT , Cervical Spine CT 01/03/23 08:27 IMPRESSION: Multilevel degenerative changes, as described above. Electronically Signed: Apolinar Rosen MD at 9:01 EDT , 2 view x-rays of left hip obtained interpreted by myself is left hip fracture, intertrochanteric. Official report from radiology pending. EKG Initial EKG: Attestation: I personally reviewed and interpreted this EKG as follows: Comments: Sinus rhythm with a rate of 60 bpm with nonspecific intraventricular conduction delay and old inferior infarct noted. Discharge Plan Triage Chief Complaint: Fall ED Provider: Lupe Joe Dx/Rx/DC Orders Clinical Impression: Closed head injury, History of hypertension, Fall, Closed fracture of left hip, Intracranial hemorrhage Prescriptions: No Action balsalazide [Colazal] 750 mg capsule 2,250 mg PO BID ferrous sulfate 325 MG tablet 325 mg PO DAILY Patient Comments: Iron supplement zinc gluconate 50 MG tablet 50 mg PO DAILY Patient Comments: supplement vitamin B complex 1 EACH capsule 1 each PO DAILY Patient Comments: Vitamin supplement aspirin 81 MG tablet 81 mg PO DAILY@0800 Hold Instructions: Resume on 12/06/22. Would recheck platelet function prior to resuming Patient Comments: will stop 5 days prior to surgery atorvastatin [Lipitor] 40 mg tablet 40 mg PO DAILY amiodarone 200 mg tablet 100 mg PO DAILY carvedilol 3.125 mg tablet 3.125 mg PO BID acetaminophen 500 mg Tablet 1,000 mg PO Q6H PRN PRN (Reason: Pain Score 1-5) Qty: 0 0RF Fletcher (with collagen) 7-7-1.5 gram Powder In Packet 1 packet PO BIDCM Qty: 0 0RF menthol-zinc oxide [Calmoseptine] 0.44-20.6 % Ointment 1 applic topical BID Qty: 0 0RF Protocol: *Topical Application Instructions APPLICATION INSTRUCTIONS: BUTTOCKS sennosides-docusate sodium [Stool Softener-Stimulant Laxat] 8.6-50 mg Tablet 1 tab PO BID PRN (Reason: Constipation) Qty: 0 0RF nystatin [Nyamyc] 100,000 unit/gram Powder 1 applic topical BID Qty: 0 0RF Protocol: *Topical Application Instructions APPLICATION INSTRUCTIONS: GROIN tramadol 50 mg Tablet 50 mg PO Q6H PRN PRN (Reason: Pain Score 6-10) 3 Days Qty: 12 0RF oxycodone 5 mg Tablet 5 mg PO Q4H PRN PRN (Reason: Pain Score 6-10) 3 Days Qty: 18 0RF sucralfate 1 gram Tablet 1 g PO TID@0700,1100,1600 Qty: 0 0RF pantoprazole 40 mg Tablet,Delayed Release (Dr/Ec) 40 mg PO BID Qty: 0 0RF misoprostol 100 mcg Tablet 100 mcg PO BIDCM Qty: 0 0RF levothyroxine 50 mcg tablet 75 mcg PO DAILY Primary Care Provider: Rosa Maria Santacruz Referrals: Rosa Maria Santacruz MD [Primary Care Provider] - Disposition Disposition: DC/Tx to Another Type of HCF Discharge Date/Time: 01/03/23 09:31
--- NOTE | 2023-01-03 07:10 | RAD_ITS ---
EXAM: XR LEFT HIP WITH PELVIS WHEN PERFORMED, 2 OR 3 VIEWS CLINICAL INDICATION: fall TECHNIQUE: 3 views. COMPARISON: 08/12/2022 FINDINGS: BONES/JOINTS: There is complex intertrochanteric left femur fracture and mild superior subluxation of the greater trochanter and mild rotation of the head. No hip dislocation. No destructive or sclerotic lesions. Note that overlapping bowel shadows may however obscure fine detail. Sacroiliac joint is unremarkable. No widening of the pubic symphysis. SOFT TISSUES: Unremarkable. No soft tissue swelling or gas. RAD/HIP, UNI W/ Pelvis 2-3 Views IMPRESSION: Left intertrochanteric femur fracture, new from December 10, 2022. No hip dislocation. N.B. : Lupe Joe DO, confirmed on 01/03/2023 07:41:15 (ET) that the healthcare facility has received the radiology report. Electronically Signed: Анна Andres MD at 7:40 EDT ,
--- NOTE | 2023-01-03 07:20 | RAD_ITS ---
EXAM: XR CHEST, 1 VIEW CLINICAL INDICATION: FALL TECHNIQUE: Frontal view of the chest. COMPARISON: November 29, 2022. FINDINGS: LUNGS AND PLEURAL SPACES: Previously seen mild medial right lung base opacity is no longer apparent, no evidence of convincing pneumonia. Stable slight blunting of the right lateral costophrenic angle. No pneumothorax. No effusion. HEART: Stable mild-moderate cardiomegaly. MEDIASTINUM: Central airways and mediastinal contour are unremarkable. BONES/JOINTS: Stable median sternotomy wires. Stable at least subacute mildly displaced fracture of fifth posterior left rib SOFT TISSUES: Unremarkable. RAD/Chest 1 View IMPRESSION: Slight blunting of the right lateral costophrenic angle. No other acute intrathoracic abnormality. Cardiomegaly and postoperative changes. Clearance of right retrocardiac opacity. Electronically Signed: Анна Andres MD at 7:43 EDT ,
--- NOTE | 2023-01-03 07:23 | EKG12_ITS ---
Test Reason : Blood Pressure : / mmHG Vent. Rate : 060 BPM Atrial Rate : 060 BPM P-R Int : 248 ms QRS Dur : 138 ms QT Int : 476 ms P-R-T Axes : 113 -38 070 degrees QTc Int : 476 ms Sinus rhythm with 1st degree A-V block Left axis deviation Non-specific intra-ventricular conduction block Minimal voltage criteria for LVH, may be normal variant ( [place] product ) Abnormal ECG Confirmed by KARIN WATSON, DURAN ([id number]), technical writer and editor YOBANY COLLINS ([id number]) on 01/06/2023 1:12:40 PM Referred By: IMANI Confirmed By:KATIE FRAZIER MD
[2023-01-03] MEDS: Ondansetron 4 MG/2 ML Vial IV (07:51)
[2023-01-03] MEDS: Morphine 4 MG/ML Syringe IV (07:51)
[2023-01-03 08:07] LABS: Absolute Lymphocyte Count 0.79 X10^3/uL (0.83-4.51); Absolute Neutrophil Count 4.3 X10^3/uL (2.0-7.7); Basophil# 0.04 X10^3/uL; Basophil% 0.7 % (0-1); Eosinophil# 0.17 X10^3/uL; Eosinophils% 2.9 % (0-5); Hematocrit 30.3 % (40-54); Hemoglobin 9.5 g/dL (13.0-16.5); Lymphocyte # 0.79 X10^3/ul (0.83-4.51); Lymphocyte % 13.5 % (19-41); Mean Corp Hgb Conc 31.4 g/dL (32-36); Mean Corpuscular Hgb 32.1 pg (27.0-32.0); Mean Corpuscular Volume 102.4 fL (80-94); Mean Platelet Vol. 9.4 fl (6.2-12.0); Monocyte# 0.57 X10^3/uL; Monocyte% 9.7 % (0-10); NRBC Flagged by Analyzer 0 % (0-5); Neutrophil # 4.26 X10^3/uL (2.7-7.7); Neutrophil % 72.5 % (47-70); Platelet Count 203 K/mm3 (150-450); RBC Distribution Width CV 14.1 % (11.6-14.6); RBC Distribution Width SD 53.4 fl (35.1-43.9); Red Blood Count 2.96 M/mm3 (4.6-6.2); White Blood Count 5.9 K/mm3 (4.4-11.0)
[2023-01-03 08:17] LABS: Anion Gap 4 (5-15); BUN 41 mg/dL (7-18); BUN/Creat Ratio 17.9 RATIO (10-20); Calcium,Total 8.8 mg/dL (8.5-10.1); Chloride 107 mmol/L (98-107); Creatinine, Serum 2.29 mg/dL (0.70-1.30); EST Glomerular Filtration Rate 29 mL/min (>60); Est Glom Filt Rate - Afr Amer 35 mL/min (>60); Estimated Creatinine Clearance 25.94 ml/min; Glucose 99 mg/dL (74-106); Sodium Level 139 mmol/L (136-145)
--- NOTE | 2023-01-03 08:27 | CT_ITS ---
STUDY: CT CERVICAL SPINE WITHOUT CONTRAST REASON FOR EXAM: Male, 82 years old. Fall, trauma RADIATION DOSAGE (If Supplied By Facility): CTDIvol = ( 17.84 ) mGy, DLP = ( 439.48 ) mGycm TECHNIQUE: High resolution transaxial imaging was performed without contrast material. Sagittal and coronal images were reconstructed. Individualized dose optimization techniques were used for this CT. COMPARISON: None FINDINGS: Normal craniovertebral junction. There are degenerative changes of the anterior atlantoaxial articulation. Normal odontoid process. Normal cervical lordosis. Normal vertebral bodies and posterior osseous elements. C2-3: Facet joint osteoarthritis and hypertrophy worse on the left side. No significant stenosis seen. C3-4: Mild degree of disc space narrowing. Minimal degree of retrolisthesis of C3 on C4. Facet joint osteoarthritis and hypertrophy and uncovertebral arthrosis. Mild degree of bilateral neural foraminal stenosis. C4-5: Minimal degree of anterior listhesis of C4 on C5. Facet joint osteoarthritis and hypertrophy worse on the right side. Mild bilateral neural foraminal stenosis. C5-6: Moderate degree of disc space narrowing and spondylosis. Uncovertebral arthrosis. Mild degree of bilateral neural foraminal stenosis. C6-7: Normal endplates. Normal disc height and morphology. Normal central canal and intervertebral neuroforamina. C7-T1: Normal endplates. Normal disc height and morphology. Normal central canal and intervertebral neuroforamina. Atherosclerotic plaque formation of the carotid bifurcations. CT/Spine Cervical without Contras IMPRESSION: Multilevel degenerative changes, as described above. Electronically Signed: Apolinar Rosen MD at 9:01 EDT ,
[2023-01-03 08:30] VITALS: BP 166/96; PULSE 62; RESP 16; O2SAT 95
--- NOTE | 2023-01-03 08:35 | ED.RN ---
report given to Carolyn at [facility]
[2023-01-03 08:47] VITALS: BP 169/66; PULSE 62; RESP 16; O2SAT 96
[2023-01-03 09:22] VITALS: BP 166/96
== END 2023-01-03 09:31 | disposition other institution (70) ==
PROVIDERS: Emergency Provider Emergency Medicine; PCP Family Medicine; Visit Provider Emergency Medicine
DX: S72.142A Displaced intertrochanteric fracture of left femur, initial encounter for closed fracture (principal); I48.91 Unspecified atrial fibrillation; S06.30AA Unspecified focal traumatic brain injury with loss of consciousness status unknown, initial encounter; I10 Essential (primary) hypertension; E78.00 Pure hypercholesterolemia, unspecified; I25.10 Atherosclerotic heart disease of native coronary artery without angina pectoris; Z79.82 Long term (current) use of aspirin; Z79.899 Other long term (current) drug therapy; W19.XXXA Unspecified fall, initial encounter; Z95.1 Presence of aortocoronary bypass graft; Z87.891 Personal history of nicotine dependence
CPT/HCPCS: 70450; 71045; 72125; 73502; 80048; 85025; 93005; 96374; 96375; 99285; J7030; A4216; J2405

== ENCOUNTER → 2023-01-10 | Outpatient (REF) | payer MEDICARE, OTHER, SELFPAY ==
[2023-01-10 06:42] LABS: Absolute Lymphocyte Count 0.93 X10^3/uL (0.83-4.51); Absolute Neutrophil Count 3.2 X10^3/uL (2.0-7.7); Basophil# 0.01 X10^3/uL; Basophil% 0.2 % (0-1); Eosinophil# 0.13 X10^3/uL; Eosinophils% 2.6 % (0-5); Hematocrit 25.4 % (40-54); Lymphocyte # 0.93 X10^3/ul (0.83-4.51); Lymphocyte % 18.9 % (19-41); Mean Corp Hgb Conc 31.5 g/dL (32-36); Mean Corpuscular Hgb 32.4 pg (27.0-32.0); Mean Corpuscular Volume 102.8 fL (80-94); Mean Platelet Vol. 9.1 fl (6.2-12.0); Monocyte% 12.2 % (0-10); NRBC Flagged by Analyzer 0 % (0-5); Neutrophil # 3.22 X10^3/uL (2.7-7.7); Neutrophil % 65.5 % (47-70); Platelet Count 159 K/mm3 (150-450); RBC Distribution Width CV 14.8 % (11.6-14.6); RBC Distribution Width SD 56.1 fl (35.1-43.9); Red Blood Count 2.47 M/mm3 (4.6-6.2); White Blood Count 4.9 K/mm3 (4.4-11.0)
[2023-01-10 07:18] LABS: ALB/GLOB Ratio 0.6 RATIO (0.9-2.4); AST(SGOT) 31 U/L (15-37); Alanine Aminotransfer ALT/SGPT 20 U/L (16-61); Albumin, Serum 1.9 g/dL (3.2-5.0); Alkaline Phosphatase 141 U/L (45-117); Anion Gap 6 (5-15); BUN 54 mg/dL (7-18); BUN/Creat Ratio 24.2 RATIO (10-20); Calcium,Total 8.4 mg/dL (8.5-10.1); Chloride 112 mmol/L (98-107); Creatinine, Serum 2.23 mg/dL (0.70-1.30); EST Glomerular Filtration Rate 30 mL/min (>60); Est Glom Filt Rate - Afr Amer 37 mL/min (>60); Glucose 96 mg/dL (74-106); Potassium 4.5 mmol/L (3.5-5.1); Protein, Total 4.9 g/dL (6.4-8.2); Sodium Level 140 mmol/L (136-145)
== END ==
LOC: OLS.WHLTCC 05:00
PROVIDERS: PCP Family Medicine; Visit Provider Internal Medicine
DX: N18.4 Chronic kidney disease, stage 4 (severe) (principal); S06.350D Traumatic hemorrhage of left cerebrum without loss of consciousness, subsequent encounter; S72.142D Displaced intertrochanteric fracture of left femur, subsequent encounter for closed fracture with routine healing
CPT/HCPCS: 36415; 80053; 85025

== ENCOUNTER → 2023-01-30 | Outpatient (REF) | payer MEDICARE, OTHER, SELFPAY | LOC: OLS.WHLTCC 16:24 | PROVIDERS: PCP Internal Medicine; Referring Provider Internal Medicine; Visit Provider Internal Medicine | DX: L03.116 Cellulitis of left lower limb (principal) | CPT/HCPCS: 87070; 87077; 87186; 87205 ==

== ENCOUNTER 2023-04-23 14:00 | Outpatient (RCR) | payer MEDICARE, OTHER, SELFPAY ==
[2023-04-16 13:07] VITALS: BP 138/43; PULSE 58; RESP 20; TEMP 36.1
--- NOTE | 2023-04-16 15:08 | HP.PCM_ITS ---
History of Present Illness Date of Service: 04/16/23 Chief Complaint: Left foot ulcerations History of Wound: Chronic wounds left foot self treatment as well as SNF treatment Progress of Wound: Mr. Arreola is a 82-year-old male presenting to the wound care center today at [facility] with a chief complaint of ulcerations to the left foot. Patient has 2 wounds to the top and heel of the left foot. Patient was recently residing in a fpc secondary to pneumonia and a hip fracture. He is currently been home for 2 weeks. He has been having home care once a week from an outside assistance. Patient has been wearing a border foam and ambu lating in sandals to the left foot. He admits that the top wound on the left foot is about healed but has evidence of a black eschar to the heel of the left foot. Patient denies being diabetic. He denies any new onset of trauma except stated above. He denies constitutional symptoms. No other pedal plaints at this time. [facility] Medical History Alcohol use Atherosclerotic heart disease of [place] coronary artery without angina pectoris Atrial fibrillation and flutter Cardiology follow-up encounter Carotid artery stenosis Dietary restriction Elevated troponin Emphysema of lung Essential hypertension Fever Former smoker Hematemesis/vomiting blood High cholesterol History of atrial fibrillation History of cardioversion (~05/09/20) History of coronary artery disease History of echocardiogram History of edema History of GI bleed History of right inguinal hernia History of stress test History of transesophageal echocardiography (ROSI) History of umbilical hernia Hx of ulcerative colitis Hypercholesterolemia Hyperlipidemia Hypertension Injury of head and neck penitentiary (current) use 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 Mitral valve insufficiency PAD (peripheral artery disease) Premature atrial contractions Right carotid bruit Subclavian artery stenosis, left (~10/15/19) Thrombocytopenia Thrombocytopenia Thyroid disease Ulcerative colitis Upper GI bleed Upper GI bleed Walker as ambulation aid Wears glasses Wears hearing aid Home Medications ferrous sulfate 325 mg (65 mg iron) tablet 325 mg PO DAILY vitamin 05/28/15 [History Last Taken 05/09/20] vitamin B complex 1 each PO DAILY vitamin 02/07/16 [History Last Taken 05/09/20] levothyroxine 50 mcg tablet 75 mcg PO DAILY thyroid 06/13/20 [History Last Taken Unknown] amiodarone 200 mg tablet 100 mg PO DAILY heart 12/03/22 [History Last Taken Unknown] carvedilol 3.125 mg tablet 3.125 mg PO BID heart 12/03/22 [History Last Taken Unknown] acetaminophen 500 mg tablet 1,000 mg (2 x 500 mg) PO Q6H PRN PRN Pain Score 1-5 #0 tabs 12/19/22 [Rx Last Taken Unknown] arginine 7 gram-glutam 7 gram-CaHMB 1.5 [id number] oral pwd pkt (Fletcher (with collagen)) 1 packet PO BIDCM #0 ea 12/19/22 [Rx Last Taken Unknown] menthol 0.44 %-zinc oxide 20.6 % topical ointment (Calmoseptine) 1 applic topical BID #0 grams 12/19/22 [Rx Last Taken Unknown] nystatin 100,000 unit/gram topical powder (Nyamyc) 1 applic topical BID #0 grams 12/19/22 [Rx Last Taken Unknown] tramadol 50 mg tablet 50 mg PO Q6H PRN PRN Pain Score 6-10 3 days #12 tabs 12/19/22 [Rx Last Taken Unknown] amlodipine 10 mg tablet 10 mg PO DAILY 04/14/23 [History Last Taken Unknown] aspirin 81 mg tablet,delayed release 81 mg PO DAILY 04/14/23 [History Last Taken Unknown] atorvastatin 40 mg tablet (Lipitor) 40 mg PO DAILY cholesterol #90 tabs 04/14/23 [Rx Last Taken Unknown] balsalazide 750 mg capsule (Colazal) 2,250 mg PO BID 04/14/23 [History Last Taken Unknown] chlorthalidone 25 mg tablet 25 mg PO DAILY 04/14/23 [History Last Taken Unknown] hydralazine 50 mg tablet 50 mg PO BID 04/14/23 [History Last Taken Unknown] lisinopril 20 mg tablet 20 mg PO DAILY 04/14/23 [History Last Taken Unknown] Allergy/AdvReac Type Severity Reaction Status Date / Time hydrochlorothiazide Allergy Severe Rash Verified 04/14/23 14:32 furosemide [From Lasix] Allergy Severe Verified 04/14/23 14:32 Rash Itchy lovastatin [From Mevacor] Allergy Rash Verified 04/14/23 14:32 amlodipine AdvReac Swelling Verified 04/14/23 14:32 Family History Father CAD (coronary artery disease) Mother Cancer breast Surgical History Aortocoronary bypass status (~02/12/17) History of cardiac catheterization History of hand surgery History of right inguinal hernia repair History of umbilical hernia repair History of vasectomy Hx of CABG Hx of colonoscopy Hx of esophagogastroduodenoscopy Hx of heart bypass surgery S/P right inguinal hernia repair S/P umbilical hernia repair, follow-up exam Status post insertion of drug-eluting stent into right coronary artery for coronary artery disease (~04/2009) Social History adopted: No household members: spouse housing: house number of children: 2 current occupational status: retired Smoking Status: Former smoker Tobacco: How many years used: 50 (stopped about 10 yrs ago) how long ago did patient quit smokin years ago alcohol intake: current alcohol intake frequency: 3 or more drinks per day [place] type: beer, wine and hard liquor substance use type: does not use caffeine: Yes Type: coffee Number of servings: 2 Vital Signs Vital Signs Vital Signs: 04/16/23 13:07 Temperature 97 F L Temperature Source Temporal Pulse Rate 58 L Respiratory Rate 20 H Blood Pressure 138/43 H Blood Pressure Mean 74 Blood Pressure Source Monitor Physical Exam Narrative Vascular: DP and PT pulses are faintly palpable. CFT is delayed. Evidence of hemosiderin deposits appreciated bilateral lower extremity. Skin temperature great is warm to warm from proximal ankle to distal digit. No focal increase noted. Neurological: Light touch intact. Epic or station is diminished. Patient does not respond to painful stimuli. Dermatological: Eschar appreciated to the left heel with no evidence of erythema or proximal streaking nor drainage. Evidence of partial-thickness wound to the dorsal aspect left heel with hyperkeratotic periwound. After debridement of the heel eschar the wound base is fibrogranular nature. No drainage or probe to bone. No sign of infection. After debridement the left dorsal foot wound base is 100% granular nature with no sign of infection. The left heel ulceration measures 1.5 x 2.8 x 0.2 cm. The left dorsum ulceration measures 1.0 x 0.5 x 0.1 cm. Excisional debridement of the left heel ulceration down to and including subcutaneous tissue with #15 blade without incident. Predebridement measurement is eschar. Postdebridement measurement is 1.5 x 2.8 x 0.2 cm. Excisional debridement of the left dorsum ulceration down to and including subcutaneous tissue with a #15 blade without incident. Predebridement measurement is 0.8 x 0.4 x 0.1 cm. Postdebridement measurement is 1.0 x 0.5 x 0.1 cm. Musculoskeletal: No pain on palpation or with sharp debridement to both ulcerations to the left foot. No pain with calf compression. Debridement Note Debridement Note Debridement Free Text: Excisional debridement of the left heel ulceration down to and including subcutaneous tissue with #15 blade without incident. Predebridement measurement is eschar. Postdebridement measurement is 1.5 x 2.8 x 0.2 cm. Excisional debridement of the left dorsum ulceration down to and including subcutaneous tissue with a #15 blade without incident. Predebridement measurement is 0.8 x 0.4 x 0.1 cm. Postdebridement measurement is 1.0 x 0.5 x 0.1 cm. Post-Debridement Measurements and Additional Note: Post-Debridement Measurements/Treatment - Nurse 1 - General Ulcer Assessment Start: 04/16/23 13:07 Freq: Status: Active Protocol: GE Activity Type Activity Date Activity User E-sign Co-sign Detail Recorded Client Recorded Date Recorded By Document 04/16/23 13:07 Desktop 04/16/23 13:36 DL 04/16/23 13:07 - Today's Visit Information Type of service Initial Visit Arrival Mode Ambulatory, Walker Transfer Assistance None Patient Identification Verified (Name & Yes ) Patient Requires Transmission-Based No Precautions Safety Precautions Fall Prevention Vital Signs Temperature (97.8 F-99.1 F) 97 F L Temperature Source Temporal Pulse Rate (60-100) 58 L Pulse Location Monitor Respiratory Rate (12-18) 20 H Respiratory rate source Observation Blood Pressure (90/60-120/80) 138/43 H Blood Pressure Mean 74 Source Monitor History Since Last Visit- (Skip if this is Patient's initial visit) Left Footwear Slipper Right Footwear Slipper Pain Scale: 0-10 Numeric Is Patient Pain Free? Yes Lower Extremity Assessment/ Foot Assessment/ Toe Nail Assessment Left -Posterior Tibial Palpable No -Dorsalis Pedis Palpable No -Extremity Color Hyperpigmented, Hemosiderin -Dependent Rubor No -Blanched when Elevated No -Lipodermatosclerosis No -Other Deformity No -Prior Foot Ulcer No -Charcot Joint No -Prior Amputation No -Thick Yes -Discolored Yes -Deformed Yes -Improper Length & Hygeine No Right -Extremity Color Hyperpigmented, Hemosiderin -Hair Growth on Legs No -Hair Growth on Toes No -Temperature of Extremity Warm -Capillary Refill Greater than 3 Seconds -Dependent Rubor No -Blanched when Elevated No -Lipodermatosclerosis No -Other Deformity No -Prior Foot Ulcer No -Charcot Joint No -Prior Amputation No -Thick Yes -Discolored Yes -Deformed Yes -Improper Length & Hygeine No Neuropathy Assessment Feet - Top Side and Bottom <Entered> (a) Communication Assessment Preferred language [place] Able to Read Yes Able to Write Yes Right Hearing Abillity Hard of Hearing ,Use of Hearing Aid Left Hearing Abillity Hard of Hearing ,Use of Hearing Aid Visual Assistive Devices Glasses Teaching Assessment Preferences Verbal,Written Barriers to Learning None Readiness To Learn Good Willingness to Engage in Self Management Med Activies Readiness to Engage in Self Management Med Activities Anxiety Level Calm Cooperation Cooperative Perception Coherent Interest in Health Problem Asks Questions Education Importance Acknowledges Need Smoking Status Former smoker Is Patient Diabetic No Functional Assessment Recent Decline in Ability to Perform Denies Any Declines Culture/Adventism/College Recruiter Cultural/Adventism Needs that may affect No Treatment Plan Would you allow our hospital salary and wage administrator to No meet you for the purpose of spiritual/ emotional support? College Recruiter to contact place of pentecostalism No Teaching: Wound Center Discharge Instructions -Person Taught Patient Dressing Your Wound -Person Taught Patient *Welcome to the Wound Center -Person Taught Patient (a) 1 - + WC - Nurse 1 - General Ulcer Measurement Start: 04/16/23 13:07 Freq: Status: Active Protocol: Activity Type Activity Date Activity User E-sign Co-sign Detail Recorded Client Recorded Date Recorded By Document 04/16/23 13:07 DL Desktop 04/16/23 13:36 DL 04/16/23 13:07 Wound Center Nurse 1 #2 L Heel -Current Size (cm) - Length 3 -Current Size (cm) - Width 3 -Current Size (cm) - Depth 0.1 -Total Square Cm 9 -Photo Taken Yes -Classification - Thickness Unclassifiable (Eschar Covered ) -Exudate Amt None Present -Wound Margin Thickened -Granulation Amt None Present (0 %) -Necrosis Amt Large (67-100%) -Necrotic Tissue Type Eschar -Structure Exposed N/A -Texture (Adelina-wound Skin Appearance) Scarring -Moisture (Adelina-wound Skin Appearance) Dry/Scaly -Color (Adelina-wound Skin Appearance) Hemosiderin Staining -Temperature (Adelina-wound Skin No Abnormality Appearance) (Pt Warm) -Tenderness on Palpation (Adelina-wound No Skin Appearance) -Ulcer Cleansing Not Cleansed -Foul Odor after Cleansing No -Anesthetic Used 5% Lidocaine Gel #1 L Dorsal foot -Current Size (cm) - Length 0.7 -Current Size (cm) - Width 1 -Current Size (cm) - Depth 0.1 -Total Square Cm 0.7 -Photo Taken Yes -Exudate Amt Small -Exudate Type Serosanguineous -Wound Margin Distinct, Outline Attached -Granulation Amt Small (1-33%) -Granulation Quality [place] -Necrosis Amt None Present (0 %) -Structure Exposed N/A -Texture (Adelina-wound Skin Appearance) Localized Edema ,Scarring -Moisture (Adelina-wound Skin Appearance) Dry/Scaly -Color (Adelina-wound Skin Appearance) Hemosiderin Staining -Temperature (Adelina-wound Skin No Abnormality Appearance) (Pt Warm) -Tenderness on Palpation (Adelina-wound No Skin Appearance) -Ulcer Cleansing Soap and Water -Foul Odor after Cleansing No -Anesthetic Used 5% Lidocaine Gel Right Calf (cm) 33.5 Right Ankle (cm) 21 Left Calf (cm) 32 Left Ankle (cm) 21.3 WC - Nurse 2 - General Ulcer CM Notes Start: 04/16/23 13:07 Freq: Status: Active Protocol: Activity Type Activity Date Activity User E-sign Co-sign Detail Recorded Client Recorded Date Recorded By Document 04/16/23 14:10 Laptop 04/16/23 14:17 04/16/23 14:10 Wound Center Nurse 2 #2 L Heel -Time 14:13 -Correct Patient Yes -Correct Side, Site, Position Yes -Correct Procedure Yes -Procedure Performed Yes -Type of Procedure Debridement -Clinical Debridement Subcutaneous -Tissue Removed Subcutaneous -Post Debridement (cm) - Length 1.5 -Post Debridement (cm) - Width 2.8 -Post Debridement (cm) - Depth 0.2 -Total Square (Post) (cm) 4.20 -Area of Debridement (cm) - Length 1.5 -Area of Debridement (cm) - Width 2.8 -Total Square (Area) (cm) 4.20 -Tunneling No -Undermining/Tunneling No -Circular Undermining No -Wound/Ulcer Outcome Not Healed -Ulcer Cleansing Rinsed/ Irrigated with Saline -Foul Odor after Cleansing No -Bioengineered Tissue No -Bleeding Controlled with Pressure -Treatment Response Procedure Tolerated Well -Offloading No -Debridement - Subq, 1st 20sq cm Yes #1 L Dorsal foot -Time 14:14 -Correct Patient Yes -Correct Side, Site, Position Yes -Correct Procedure Yes -Procedure Performed Yes -Type of Procedure Debridement -Clinical Debridement Subcutaneous -Tissue Removed Subcutaneous -Post Debridement (cm) - Length 1.0 -Post Debridement (cm) - Width 0.5 -Post Debridement (cm) - Depth 0.1 -Total Square (Post) (cm) 0.50 -Area of Debridement (cm) - Length 1.0 -Area of Debridement (cm) - Width 0.5 -Total Square (Area) (cm) 0.50 -Tunneling No -Undermining/Tunneling No -Circular Undermining No -Wound/Ulcer Outcome Not Healed -Ulcer Cleansing Rinsed/ Irrigated with Saline -Foul Odor after Cleansing No -Bioengineered Tissue No -Bleeding Controlled with Pressure -Treatment Response Procedure Tolerated Well -Offloading No -Debridement - Subq, 1st 20sq cm No Pain Scale: 0-10 Numeric Is Patient Pain Free? 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 Yes WC - Visit Discharge Discharge Condition Stable Ambulatory Status Ambulatory, Walker Transportation Private Auto [facility] / [employer] 04/16/23 15:05 04/16/23 15:05 Assessment/Plan Assessment/Plan (1) Non-pressure 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: CODE(S): L97.422 - Non-pressure chronic ulcer of left heel and midfoot w ith fat layer exposed PLAN: Patient was examined evaluated. All findings were discussed with the patient. All questions were answered to the patient satisfaction. Excisional debridement of the left heel ulceration down to and including subcutaneous tissue with #15 blade without incident. Predebridement measurement is eschar. Postdebridement measurement is 1.5 x 2.8 x 0.2 cm. Excisional debridement of the left dorsum ulceration down to and including subcutaneous tissue with a #15 blade without incident. Predebridement measurement is 0.8 x 0.4 x 0.1 cm. Postdebridement measurement is 1.0 x 0.5 x 0.1 cm. Patient will be given a prescription for Santyl to be applied nickel thick with moist gauze and dry sterile dressing to the left heel. Patient will apply triple ointment antibiotic and a Band-Aid to the left dorsum ulceration. Patient is to ambulate and offload the left lower extremity as tolerated. Patient will be given a order for vascular studies PVRs and venous reflux for baseline levels. Patient was understanding. Follow-up in 1 week for evaluation. We will be authorizing EpiFix mesh to be applied to the left heel. (2) Peripheral vascular disease: CODE(S): I73.9 - Peripheral vascular disease, unspecified
[2023-04-16 17:36] LABS: Absolute Lymphocyte Count 0.76 X10^3/uL (0.83-4.51); Absolute Neutrophil Count 2.9 X10^3/uL (2.0-7.7); Basophil# 0.05 X10^3/uL; Basophil% 1.1 % (0-1); Eosinophil# 0.28 X10^3/uL; Eosinophils% 6.1 % (0-5); Hematocrit 33.4 % (40-54); Hemoglobin 10.4 g/dL (13.0-16.5); Lymphocyte # 0.76 X10^3/ul (0.83-4.51); Lymphocyte % 16.7 % (19-41); Mean Corp Hgb Conc 31.1 g/dL (32-36); Mean Corpuscular Hgb 33.1 pg (27.0-32.0); Mean Corpuscular Volume 106.4 fL (80-94); Mean Platelet Vol. 10.5 fl (6.2-12.0); Monocyte# 0.54 X10^3/uL; Monocyte% 11.8 % (0-10); NRBC Flagged by Analyzer 0 % (0-5); Neutrophil # 2.92 X10^3/uL (2.7-7.7); Neutrophil % 64.1 % (47-70); POSITIVE MORPHOLOGY YES; Platelet Count 130 K/mm3 (150-450); RBC Distribution Width SD 66.9 fl (35.1-43.9); Red Blood Count 3.14 M/mm3 (4.6-6.2); White Blood Count 4.6 K/mm3 (4.4-11.0)
[2023-04-16 17:42] LABS: Differential Indicated SCAN CRITERIA MET
[2023-04-16 17:49] LABS: Erythrocyte Sedimentation Rate 6 mm/hr (0-20)
[2023-04-16 18:06] LABS: Differential Comment SCANNED
[2023-04-16 18:13] LABS: Anion Gap 6 (5-15); BUN 59 mg/dL (7-18); BUN/Creat Ratio 20.9 RATIO (10-20); Calcium,Total 9.2 mg/dL (8.5-10.1); Chloride 114 mmol/L (98-107); Creatinine, Serum 2.82 mg/dL (0.70-1.30); EST Glomerular Filtration Rate 23 mL/min (>60); Est Glom Filt Rate - Afr Amer 28 mL/min (>60); Glucose 110 mg/dL (74-106); Potassium 5.1 mmol/L (3.5-5.1); Sodium Level 142 mmol/L (136-145)
--- NOTE | 2023-04-22 09:57 | ART_ITS ---
Reason For Study: Heel ulcer Procedure A bilateral lower extremity continuous wave Doppler with analog waveform analysis,segmental pressures,and ankle brachial indexes without exercise. Left Segmental Pressures Left brachial= 167mmHg. Left posterior tibial artery = >254mmHg. Left dorsalis pedis artery = >254mmHg. Left digit = 68 mmHg. The left dorsalis pedis waveforms are monophasic. The left posterior tibial artery waveforms are monophasic. Right Segmental Pressures Right brachial= 166mmHg. Right posterior tibial artery = 214mmHg. Right dorsalis pedis artery = >254mmHg. Right digit = 95 mmHg. The right dorsalis pedis waveforms are biphasic. The right posterior tibial artery waveforms are biphasic. Indices The right ankle brachial index by the dorsalis pedis is NC. The right ankle brachial index by the posterior tibial artery is 1.28. The right digital-brachial index is 0.57. The left ankle brachial index by the dorsalis pedis is NC. The left ankle brachial index by the posterior tibial artery is NC. The left digital-brachial index is 0.41. VL/Lower Ext Art Exam w/o Exercis Interpretation Summary Biphasic Doppler waveforms are noted at ankle level on the right. Monophasic Do ppler waveforms are noted at ankle level on the left. Pulse-volume recordings appear satisfactory b ilaterally. The resting right ankle-brachial index is normal. The resting left ankle-brachial i ndex could not be determined due to the non-compressibility of the vasculature at ankle level on the left. The right digital-brachial index is mildly diminished. The left digital-brachial index is moderately diminished. There is evidence of arterial calcification at ankle level on the left. Arteria l flow appears normal at ankle level on the right. Arterial flow appears to be diminished at ankle le babar on the left, evidenced by monophasic waveforms. 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 Ordering Physician: Warren Sampson Referring Physician: Paco Norman Performed By: Fe Turner RVT
--- NOTE | 2023-04-22 09:57 | VDLE_ITS ---
Reason For Study: Heal ulcer RIGHT LEFT CFV is compressible, spontaneous, phasic, CFV is compressible, spontaneous, phasic, competent and demonstrates normal competent, and demonstrates normal augmentation. augmentation. FV is compressible, spontaneous, phasic, FV is compressible, spontaneous, phasic, competent and demonstrates normal competent and demonstrates normal augmentation. augmentation. POP V is compressible, spontaneous, phasic, POP V is compressible, spontaneous, phasic, competent and demonstrates normal competent and demonstrates normal augmentation. augmentation. T/P Trunk is compressible. T/P Trunk is compressible. PTV is compressible. PTV is compressible. RT PerV is compressible. LT PerV is compressible. SFJ is competent and measures 0.48 x 0.41 cm. SFJ is competent and measures 0.69 x 0.80 cm. GSV proximal thigh measures 0.17 x 0.19 cm. GSV proximal thigh measures 0.18 x 0.18 cm. GSV at knee measures 0.11 x 0.13 cm. GSV at knee measures 0.34 x 0.35 cm. GSV is competent throughout. GSV is competent throughout. SSV proximal calf is competent and measures ASV mid calf is INCOMPETENT for greater than 0.28 x 0.30 cm. 0.5 seconds and measures 0.17 x 0.21 cm. Procedure SSV proximal calf is competent and measures This is a venous duplex using B-mode, color 0.41 x 0.40 cm. flow and spectral Doppler. Exam performed in department. Patient was scanned in reverse Trendelenburg position during reflux assessment. A preliminary report was called and/or faxed to . VL/Venous Duplex US - Jin Extrem Interpretation Summary Deep veins of the lower extremities are bilaterally patent and compressible seg mentally. There is no evidence of deep vein thrombosis on either side. Valvular competence appears in tact within the proximal deep venous systems bilaterally. The great saphenous veins appear bila terally patent and compressible segmentally. Sapheno-femoral junctions are bilaterally competent . Valvular competence appears to be intact segmentally within the great saphenous veins bilaterally. Small saphenous veins are patent and competent bilaterally. The accessory saphenous vein in the left mid-calf is incompetent. Ordering Physician: Warren Sampson Referring Physician: Paco Norman Performed By: Fe Turner RVT
[2023-04-23 13:46] VITALS: BP 170/49; PULSE 66; RESP 18; TEMP 36
--- NOTE | 2023-04-23 14:29 | PN.PCM_ITS ---
History of Present Illness Date of Service: 04/23/23 Chief Complaint: Left foot ulcerations History of Wound: Chronic wounds left foot self treatment as well as SNF treatment Progress of Wound: Mr. Arreola is a 82-year-old male presenting to the wound care center today at [facility] with a chief complaint of ulcerations to the left foot. Patient has 2 wounds to the top and heel of the left foot. Patient was recently residing in a fci secondary to pneumonia and a hip fracture. He is currently been home for 2 weeks. He has been having home care once a week from an outside assistance. Patient has been wearing a border foam and ambu lating in sandals to the left foot. He admits that the top wound on the left foot is about healed but has evidence of a black eschar to the heel of the left foot. Patient denies being diabetic. He denies any new onset of trauma except stated above. He denies constitutional symptoms. No other pedal plaints at this time. Subjective Subjective Mr. Lim is a 82-year-old male presenting for follow-up to the wound care ce nter of left heel and dorsum ulceration. Patient has been doing home dressing changes at home. He has been approved for EpiFix as well as Santyl. He does his own dressing changes at home but would like home health care to come at least 2-3 times per week. He denies trauma. Denies constitutional symptoms. No other pedal complaints at this time. He is also here to review his of vascular studies as well as labs. Objective Data Objective Data Vital Signs: Vital Signs Temp Pulse Resp BP O2 Del Method 96.8 F L 66 18 170/49 H Room Air 04/23/23 13:46 04/23/23 13:46 04/23/23 13:46 04/23/23 13:46 04/23/23 13:46 Oxygen Delivery Method Room Air Lab / Micro Data 04/16/23 15:05 04/16/23 15:05 Radiography Diagnostic Testing: Radiology Impression Extremity Arterial Study 04/22/23 09:57 Interpretation Summary Biphasic Doppler waveforms are noted at ankle level on the right. Monophasic Doppler waveforms are noted at ankle level on the left. Pulse-volume recordings appear satisfactory bilaterally. The resting right ankle-brachial index is normal. The resting left ankle-brachial index could not be determined due to the non-compressibility of the vasculature at ankle level on the left. The right digital-brachial index is mildly diminished. The left digital-brachial index is moderately diminished. There is evidence of arterial calcification at ankle level on the left. Arterial flow appears normal at ankle level on the right. Arterial flow appears to be diminished at ankle level on the left, evidenced by monophasic waveforms. 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 Ordering Physician: Warren Sampson Referring Physician: Paco Norman Performed By: Fe Turner RVT Venous Doppler Study 04/22/23 09:57 Interpretation Summary Deep veins of the lower extremities are bilaterally patent and compressible segmentally. There is no evidence of deep vein thrombosis on either side. Valvular competence appears intact within the proximal deep venous systems bilaterally. The great saphenous veins appear bilaterally patent and compressible segmentally. Sapheno-femoral junctions are bilaterally competent . Valvular competence appears to be intact segmentally within the great saphenous veins bilaterally. Small saphenous veins are patent and competent bilaterally. The accessory saphenous vein in the left mid-calf is incompetent. Ordering Physician: Warren Sampson Referring Physician: Paco Norman Performed By: Fe Turner RVT Physical Exam Narrative Vascular: DP and PT pulses are faintly palpable. CFT is delayed. Evidence of hemosiderin deposits appreciated bilateral lower extremity. Skin temperature great is warm to warm from proximal ankle to distal digit. No focal increase noted. Neurological: Light touch intact. Epic or station is diminished. Patient does not respond to painful stimuli. Dermatological: Full-thickness ulceration appreciated to the left heel with fibrogranular tissue. Wound measures after debridement 1.3 x 2.8 x 0.1 cm. The wound was debrided to the left heel with [employer]'s ultrasonic debrider. The left dorsal wound was debrider with a 5 mm dermal curette. Dorsal wound measures 0.9 x 0.4 x 0.1 cm. Excisional debridement of the left heel ulceration down to and including subcutaneous tissue with the [employer] ultrasonic debrider without incident. Predebridement measurement is 1.2 x 2.5 x 0.1 cm. Postdebridement measurement is 1.3 x 2.8 x 0.1 cm. Excisional debridement of the left dorsum ulceration down to and including subcutaneous tissue with a #5 millimeter dermal curette without incident. Predebridement measurement is 0.8 x 0.3 x 0.1 cm. Postdebridement measurement is 0.9 x 0.4 x 0.1 cm. EpiFix 2.0 x 2.0 cm graft was applied to the left heel full-thickness ulceration with 100% use. First application. The graft site was free and clear of any inf ection. The wound/skin graft substitute was dressed with nonadherent bandage secured in place with Steri-Strips followed by bolster dressing as well as a single layer Tubigrip. Musculoskeletal: No pain on palpation or with sharp debridement to both ulcerations to the left foot. No pain with calf compression. Debridement Note Debridement Note Debridement Free Text: Excisional debridement of the left heel ulceration down to and including subcutaneous tissue with the Misonix ultrasonic debrider without incident. Predebridement measurement is 1.2 x 2.5 x 0.1 cm. Postdebridement measurement is 1.3 x 2.8 x 0.1 cm. Excisional debridement of the left dorsum ulceration down to and including subcutaneous tissue with a #5 millimeter dermal curette without incident. Predebridement measurement is 0.8 x 0.3 x 0.1 cm. Postdebridement measurement is 0.9 x 0.4 x 0.1 cm. EpiFix 2.0 x 2.0 cm graft was applied to the left heel full-thickness ulceration with 100% use. First application. The graft site was free and clear of any infection. The wound/skin graft substitute was dressed with nonadherent bandage secured in place with Steri-Strips followed by bolster dressing as well as a single layer Tubigrip. 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 ) Arrival Mode Ambulatory, Ambulatory, Walker Walker Transfer Assistance None Patient Identification Verified (Name & Yes Yes ) Patient Requires Transmission-Based No Precautions Safety Precautions Fall Prevention Vital Signs Temperature (97.8 F-99.1 F) 97 F L 96.8 F L Temperature Source Temporal Temporal Pulse Rate (60-100) 58 L 66 Pulse Location Monitor Monitor Respiratory Rate (12-18) 20 H 18 Respiratory rate source Observation Observation Oxygen Delivery Method Room Air Blood Pressure (90/60-120/80) 138/43 H 170/49 H Blood Pressure Mean (mm Hg) 74 89 Source Monitor Monitor Position Sitting Blood Pressure Location Left Arm History Since Last Visit- (Skip if this is Patient's initial visit) Have you changed medications since your No last visit? Any new allergies or adverse reactions No Had a fall/change in ADL's that may No increase risk of falls Signs or symptoms of abuse and/or No neglect since last visit Have you been in the hospital since your No last visit? Has dressing in place as prescribed Yes Left Footwear Slipper Surgical Shoe with pressure relief insole Right Footwear Slipper Regular Shoe Pain Scale: 0-10 Numeric Is Patient Pain Free? Yes Yes Lower Extremity Assessment/ Foot Assessment/ Toe Nail Assessment Left -Posterior Tibial Palpable No -Dorsalis Pedis Palpable No -Extremity Color Hyperpigmented, Hemosiderin -Dependent Rubor No -Blanched when Elevated No -Lipodermatosclerosis No -Other Deformity No -Prior Foot Ulcer No -Charcot Joint No -Prior Amputation No -Thick Yes -Discolored Yes -Deformed Yes -Improper Length & Hygeine No Right -Extremity Color Hyperpigmented, Hemosiderin -Hair Growth on Legs No -Hair Growth on Toes No -Temperature of Extremity Warm -Capillary Refill Greater than 3 Seconds -Dependent Rubor No -Blanched when Elevated No -Lipodermatosclerosis No -Other Deformity No -Prior Foot Ulcer No -Charcot Joint No -Prior Amputation No -Thick Yes -Discolored Yes -Deformed Yes -Improper Length & Hygeine No Neuropathy Assessment Feet - Top Side and Bottom <Entered> (a) Communication Assessment Preferred language Citizen Of [place] Able to Read Yes Able to Write Yes Right Hearing Abillity Hard of Hearing ,Use of Hearing Aid Left Hearing Abillity Hard of Hearing ,Use of Hearing Aid Visual Assistive Devices Glasses Teaching Assessment Preferences Verbal,Written Barriers to Learning None Readiness To Learn Good Willingness to Engage in Self Management Med Activies Readiness to Engage in Self Management Med Activities Anxiety Level Calm Cooperation Cooperative Perception Coherent Interest in Health Problem Asks Questions Education Importance Acknowledges Need Smoking Status Former smoker Is Patient Diabetic No Functional Assessment Recent Decline in Ability to Perform Denies Any Declines 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 Dry Mill Operator to contact place of druze No Teaching: Wound Center Discharge Instructions -Person Taught Patient Dressing Your Wound -Person Taught Patient *Welcome to the Wound Center -Person Taught Patient (a) 1 - + WC - Nurse 1 - General Ulcer Measurement Start: 04/16/23 13:07 Freq: Status: Active Protocol: Activity Type Activity Date Activity User E-sign Co-sign Detail Recorded Client Recorded Date Recorded By Document 04/16/23 13:07 DL Desktop 04/16/23 13:36 DL Document 04/23/23 13:46 KW Desktop 04/23/23 13:52 KW 04/16/23 04/23/23 13:07 13:46 Wound Center Nurse 1 #2 L Heel -Current Size (cm) - Length 3 1.8 -Current Size (cm) - Width 3 3.4 -Current Size (cm) - Depth 0.1 0.1 -Total Square Cm 9 6.12 -Photo Taken Yes -Classification - Thickness Unclassifiable (Eschar Covered ) -Exudate Amt None Present Medium -Exudate Type Serosanguineous -Wound Margin Thickened Distinct, Outline Attached -Granulation Amt None Present (0 Medium (34-66%) %) -Granulation Quality Friendly -Necrosis Amt Large (67-100%) Medium (34-66%) -Necrotic Tissue Type Eschar Adherent Slough -Structure Exposed N/A -Texture (Adelina-wound Skin Appearance) Scarring Assessed -Moisture (Adelina-wound Skin Appearance) Dry/Scaly Assessed, Maceration -Color (Adelina-wound Skin Appearance) Hemosiderin Assessed Staining -Temperature (Adelina-wound Skin No Abnormality No Abnormality Appearance) (Pt Warm) (Pt Warm) -Tenderness on Palpation (Adelina-wound No Skin Appearance) -Ulcer Cleansing Not Cleansed Soap and Water -Foul Odor after Cleansing No No -Anesthetic Used 5% Lidocaine 5% Lidocaine Gel Gel #1 L Dorsal foot -Current Size (cm) - Length 0.7 1.3 -Current Size (cm) - Width 1 0.4 -Current Size (cm) - Depth 0.1 0.1 -Total Square Cm 0.7 0.52 -Photo Taken Yes -Exudate Amt Small Small -Exudate Type Serosanguineous Serosanguineous -Wound Margin Distinct, Distinct, Outline Outline Attached Attached -Granulation Amt Small (1-33%) Medium (34-66%) -Granulation Quality Friendly Friendly -Necrosis Amt None Present (0 Small (1-33%) %) -Necrotic Tissue Type Adherent Slough -Structure Exposed N/A -Texture (Adelina-wound Skin Appearance) Localized Edema Assessed ,Scarring -Moisture (Adelina-wound Skin Appearance) Dry/Scaly Assessed -Color (Adelina-wound Skin Appearance) Hemosiderin Assessed Staining -Temperature (Adelina-wound Skin No Abnormality No Abnormality Appearance) (Pt Warm) (Pt Warm) -Tenderness on Palpation (Adelina-wound No Skin Appearance) -Ulcer Cleansing Soap and Water Soap and Water -Foul Odor after Cleansing No No -Anesthetic Used 5% Lidocaine 5% Lidocaine Gel Gel Right Calf (cm) 33.5 Right Ankle (cm) 21 Left Calf (cm) 32 Left Ankle (cm) 21.3 - Nurse 2 - General Ulcer CM Notes Start: 04/16/23 13:07 Freq: Status: Active Protocol: Activity Type Activity Date Activity User E-sign Co-sign Detail Recorded Client Recorded Date Recorded By Document 04/16/23 14:10 Laptop 04/16/23 14:17 Document 04/23/23 14:15 Laptop 04/23/23 14:20 04/16/23 04/23/23 14:10 14:15 Wound Center Nurse 2 #2 L Heel -Time 14:13 14:18 -Correct Patient Yes Yes -Correct Side, Site, Position Yes Yes -Correct Procedure Yes Yes -Procedure Performed Yes Yes -Type of Procedure Debridement Debridement -Clinical Debridement Subcutaneous Subcutaneous -Tissue Removed Subcutaneous Subcutaneous -Post Debridement (cm) - Length 1.5 1.3 -Post Debridement (cm) - Width 2.8 2.8 -Post Debridement (cm) - Depth 0.2 0.1 -Total Square (Post) (cm) 4.20 3.64 -Area of Debridement (cm) - Length 1.5 1.3 -Area of Debridement (cm) - Width 2.8 2.8 -Total Square (Area) (cm) 4.20 3.64 -Tunneling No No -Undermining/Tunneling No No -Circular Undermining No No -Wound/Ulcer Outcome Not Healed Not Healed -Ulcer Cleansing Rinsed/ Rinsed/ Irrigated with Irrigated with Saline Saline -Foul Odor after Cleansing No No -Bioengineered Tissue No Yes -Type of Bioengineered Tissue Epifix -Expiration Date 12/29/27 -Product Lot Number [id number] -Percent Used 100 -Lot number of Saline Used [id number] -Bleeding Controlled with Pressure Pressure -Treatment Response Procedure Procedure Tolerated Well Tolerated Well -Offloading No No -Debridement - Subq, 1st 20sq cm Yes No -Apply Skin Sub - 1st 25 sq cm - Feet 1 -Epifix (per sq cm) 4 #1 L Dorsal foot -Time 14:14 14:19 -Correct Patient Yes Yes -Correct Side, Site, Position Yes Yes -Correct Procedure Yes Yes -Procedure Performed Yes Yes -Type of Procedure Debridement Debridement -Clinical Debridement Subcutaneous Subcutaneous -Tissue Removed Subcutaneous Subcutaneous -Post Debridement (cm) - Length 1.0 0.9 -Post Debridement (cm) - Width 0.5 0.4 -Post Debridement (cm) - Depth 0.1 0.1 -Total Square (Post) (cm) 0.50 0.36 -Area of Debridement (cm) - Length 1.0 0.9 -Area of Debridement (cm) - Width 0.5 0.4 -Total Square (Area) (cm) 0.50 0.36 -Tunneling No No -Undermining/Tunneling No No -Circular Undermining No No -Wound/Ulcer Outcome Not Healed Not Healed -Ulcer Cleansing Rinsed/ Rinsed/ Irrigated with Irrigated with Saline Saline -Foul Odor after Cleansing No No -Bioengineered Tissue No No -Bleeding Controlled with Pressure Pressure -Treatment Response Procedure Procedure Tolerated Well Tolerated Well -Offloading No No -Debridement - Subq, 1st 20sq cm No Yes Pain Scale: 0-10 Numeric Is Patient Pain Free? Yes Yes - Nurse 3 - General Ulcer D/C NN Start: 04/16/23 13:07 Freq: Status: Active Protocol: Activity Type Activity Date Activity User E-sign Co-sign Detail Recorded Client Recorded Date Recorded By Document 04/16/23 14:24 [facility] Desktop 04/16/23 14:27 [facility] 04/16/23 14:24 Wound Care Center Nurse 3 #2 L Heel -Ulcer Cleansing Rinsed/ Irrigated with Saline -Foul Odor after Cleansing No -Other Dressing hydrogel -Primary Dressing Covered/Secured with Dry Gauze & Roll Gauze, Secured with Tape -Other Covering per dl corrections counselor #1 L Dorsal foot -Ulcer Cleansing Rinsed/ Irrigated with Saline -Foul Odor after Cleansing No -Other Dressing antibiotic oint -Primary Dressing Covered/Secured with Dry Gauze & Roll Gauze, Secured with Tape -Other Covering per dl corrections counselor Treatment Response Procedure Tolerated Well Pain Scale: 0-10 Numeric Is Patient Pain Free? Yes - Visit Discharge Discharge Condition Stable Ambulatory Status Ambulatory, Walker Transportation Private Auto Assessment/Plan Assessment/Plan (1) Non-pressure 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: CODE(S): L97.422 - Non-pressure 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 PLAN: Patient was examined evaluated. All findings were discussed with the patient. All questions were answered to the patient satisfaction. Excisional debridement of the left heel ulceration down to and including subcutaneous tissue with the [employer] ultrasonic debrider without incident. Predebridement measurement is 1.2 x 2.5 x 0.1 cm. Postdebridement measurement is 1.3 x 2.8 x 0.1 cm. Excisional debridement of the left dorsum ulceration down to and including subcutaneous tissue with a #5 millimeter dermal curette without incident. Predebridement measurement is 0.8 x 0.3 x 0.1 cm. Postdebridement measurement is 0.9 x 0.4 x 0.1 cm. EpiFix 2.0 x 2.0 cm graft was applied to the left heel full-thickness ulceration with 100% use. First application. The graft site was free and clear of any infection. The wound/skin graft substitute was dressed with nonadherent bandage secured in place with Steri-Strips followed by bolster dressing as well as a single layer Tubigrip. Follow-up in 1 week. (2) Peripheral vascular disease: CODE(S): I73.9 - Peripheral vascular disease, unspecified PLAN: After reviewing the patient's PVRs. The right lower extremity is within normal limits. Left lower extremity shows evidence of possible peripheral vascular disease. ABIs were not retrieved from the documentation since the patient has noncompressible vessels to left lower extremity. He will be given referral to follow-up with vascular surgery, Dr. Lim at [facility].
== END 2023-04-29 23:59 | disposition home or self-care (01) ==
LOC: WC 14:00
PROVIDERS: PCP Internal Medicine; Referring Provider Internal Medicine; Visit Provider Podiatrist Foot & Ankle Surgery
DX: I73.9 Peripheral vascular disease, unspecified (principal); L97.422 Non-pressure chronic ulcer of left heel and midfoot with fat layer exposed; J43.9 Emphysema, unspecified; I25.10 Atherosclerotic heart disease of native coronary artery without angina pectoris; E07.9 Disorder of thyroid, unspecified; Z87.891 Personal history of nicotine dependence; I10 Essential (primary) hypertension; E78.00 Pure hypercholesterolemia, unspecified; Z79.899 Other long term (current) drug therapy; Z79.82 Long term (current) use of aspirin; R22.41 Localized swelling, mass and lump, right lower limb; R22.42 Localized swelling, mass and lump, left lower limb; Z79.890 Hormone replacement therapy
CPT/HCPCS: 11042; 15275; 36415; 80048; 83036; 85025; 85652; 86140; 93923; 93970; 99213; Q4186; G0463

== ENCOUNTER → 2023-05-15 | Outpatient (CLI) | payer MEDICARE, OTHER, SELFPAY ==
--- NOTE | 2023-05-15 10:51 | CDU_ITS ---
Reason For Study: carotid stenosis Rt. Velocities/BP Lt. Velocities/BP Prox CCA 108.4/11.4 cm/sec. Prox CCA 66.3/10.2 cm/sec. Mid CCA 96.1/11.4 cm/sec. Mid CCA 72.9/11.3 cm/sec. Dist CCA 101.1/15.1 cm/sec. Dist CCA 79.5/10.2 cm/sec. Prox ICA 143.3/29.2 cm/sec. Prox ICA 167.5/22.6 cm/sec. Mid ICA 209.2/27.0 cm/sec. Mid ICA 165.3/13.8 cm/sec. Dist ICA 180.7/22.6 cm/sec. Dist ICA 81.7/12.4 cm/sec. Rt. ICA/CCA = 2.2. Lt. ICA/CCA = 2.3. Prox ECA 180.7/7.2 cm/sec. Prox ECA 465.1/29.2 cm/sec. Rt. Vert. 48.7/6.9 cm/sec. Lt. Vert. 36.0/8.1 cm/sec. Right Extracranial There is heterogeneous, irregular atherosclerotic plaque noted in the right common carotid artery. There is heterogeneous, irregular atherosclerotic plaque noted in the right internal carotid artery. There is heterogeneous, irregular atherosclerotic plaque noted in the right external carotid artery. Antegrade flow is noted in the right vertebral artery. Left Extracranial There is heterogeneous, irregular atherosclerotic plaque noted in the left common carotid artery. There is heterogeneous, irregular atherosclerotic plaque noted in the left internal carotid artery. There is heterogeneous, irregular atherosclerotic plaque noted in the left external carotid artery. Antegrade flow is noted in the left vertebral artery. Procedure Carotid Duplex [id number]. This is a Carotid Duplex examination using B-mode, color flow and specral Doppler. The exam was diagnostic. Exam performed in department. VL/Carotid Duplex Ultrasound Interpretation Summary Moderate (50-69%) stenosis right extracranial internal carotid. Moderate (50-69%) stenosis left extracranial internal carotid. Patent and antegrade vertebrals bilaterally. Ordering Physician: Susan Walden Performed By: Dion Dye RVT
== END | disposition home or self-care (01) ==
LOC: CVS 10:50
PROVIDERS: PCP Family Medicine; Referring Provider Physician Assistant; Visit Provider Physician Assistant
DX: R09.89 Other specified symptoms and signs involving the circulatory and respiratory systems (principal); I25.10 Atherosclerotic heart disease of native coronary artery without angina pectoris
CPT/HCPCS: 93880

== ENCOUNTER 2023-05-21 13:30 | Outpatient (RCR) | payer MEDICARE, OTHER, SELFPAY ==
[2023-04-30 00:30] VITALS: BP 170/49; PULSE 66; RESP 18; TEMP 36
[2023-04-30 09:57] VITALS: BP 155/70; PULSE 62; RESP 20; TEMP 36.1
--- NOTE | 2023-04-30 10:18 | PCM.WC.PN ---
History of Present Illness Date of Service: 04/30/23 Chief Complaint: Left foot ulcerations History of Wound: Chronic wounds left foot self treatment as well as SNF treatment Subjective Subjective Mr. Arreola is a 82-year-old male presenting for follow-up to the wound care center of left heel and dorsum ulceration. Patient has been doing home dressing changes at home. He has been approved for EpiFix as well as Santyl. He does his own dressing changes at home but would like home health care to come at least 2-3 times per week. Home health care has reached out. He is waiting to coordinate time. He denies trauma. Denies constitutional symptoms. No other pedal complaints at this time. He is also here to review his of vascular studies as well as labs. Objective Data Objective Data Vital Signs: Vital Signs Temp Pulse Resp BP O2 Del Method 96.9 F L 62 20 H 155/70 H Room Air 04/30/23 09:57 04/30/23 09:57 04/30/23 09:57 04/30/23 09:57 04/30/23 09:57 Oxygen Delivery Method Room Air Physical Exam Narrative Vascular: DP and PT pulses are faintly palpable. CFT is delayed. Evidence of hemosiderin deposits appreciated bilateral lower extremity. Skin temperature great is warm to warm from proximal ankle to distal digit. No focal increase noted. Neurological: Light touch intact. Epic or station is diminished. Patient does not respond to painful stimuli. Dermatological: Full-thickness ulceration appreciated to the left heel with fibrogranular tissue. Wound measures after debridement 1.3 x 2.5 x 0.1 cm cm. The left dorsal wound was debrided with a 5 mm dermal curette. Dorsal wound measures 0.1 x 0.1 x 0.1 cm. Excisional debridement of the left heel ulceration down to and including subcutaneous tissue with the number 5 mm dermal curette without incident. Predebridement measurement is 1.2 x 2.4 x 0.1 cm. Postdebridement measurement is 1.3 x 2.5 x 0.1 cm. Excisional debridement of the left dorsum ulceration down to and including subcutaneous tissue with a #5 millimeter dermal curette without incident. Predebridement measurement is eschar. Postdebridement measurement is 0.1 x 0.1 x 0.1. EpiFix 2.0 x 2.0 cm graft was applied to the left heel full-thickness ulceration with 100% use. Second application. The graft site was free and clear of any infection. The wound/skin graft substitute was dressed with nonadherent bandage secured in place with Steri-Strips followed by bolster dressing as well as a single layer Tubigrip. Musculoskeletal: No pain on palpation or with sharp debridement to both ulcerations to the left foot. No pain with calf compression. Debridement Note Debridement Note Debridement Free Text: Excisional debridement of the left heel ulceration down to and including subcutaneous tissue with the number 5 mm dermal curette without incident. Predebridement measurement is 1.2 x 2.4 x 0.1 cm. Postdebridement measurement is 1.3 x 2.5 x 0.1 cm. Excisional debridement of the left dorsum ulceration down to and including subcutaneous tissue with a #5 millimeter dermal curette without incident. Predebridement measurement is eschar. Postdebridement measurement is 0.1 x 0.1 x 0.1. EpiFix 2.0 x 2.0 cm graft was applied to the left heel full-thickness ulceration with 100% use. Second application. The graft site was free and clear of any infection. The wound/skin graft substitute was dressed with nonadherent bandage secured in place with Steri-Strips followed by bolster dressing as well as a single layer Tubigrip. 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 Any new allergies or adverse reactions No Had a fall/change in ADL's that may No increase risk of falls Signs or symptoms of abuse and/or No neglect since last visit Left Footwear Regular Shoe Right Footwear Regular Shoe Pain Scale: 0-10 Numeric Is Patient Pain Free? Yes WC - Nurse 2 - General Ulcer CM Notes Start: 04/30/23 09:55 Freq: Status: Active Protocol: Activity Type Activity Date Activity User E-sign Co-sign Detail Recorded Client Recorded Date Recorded By Document 04/30/23 10:11 Laptop 04/30/23 10:18 04/30/23 10:11 Wound Center Nurse 2 #2 L Heel -Time 10:11 -Correct Patient Yes -Correct Side, Site, Position Yes -Correct Procedure Yes -Procedure Performed Yes -Type of Procedure Debridement -Clinical Debridement Subcutaneous -Tissue Removed Subcutaneous -Post Debridement (cm) - Length 1.3 -Post Debridement (cm) - Width 2.5 -Post Debridement (cm) - Depth 0.1 -Total Square (Post) (cm) 3.25 -Area of Debridement (cm) - Length 1.3 -Area of Debridement (cm) - Width 2.5 -Total Square (Area) (cm) 3.25 -Tunneling No -Undermining/Tunneling No -Circular Undermining No -Wound/Ulcer Outcome Not Healed -Ulcer Cleansing Rinsed/ Irrigated with Saline -Foul Odor after Cleansing No -Bioengineered Tissue Yes -Type of Bioengineered Tissue Epifix -Expiration Date 12/29/27 -Product Lot Number [id number] -Percent Used 100 -Lot number of Saline Used [id number] -Bleeding Controlled with Pressure -Treatment Response Procedure Tolerated Well -Offloading No -Debridement - Subq, 1st 20sq cm No -Apply Skin Sub - 1st 25 sq cm - Feet 1 -Epifix (per sq cm) 4 #1 L Dorsal foot -Time 10:17 -Correct Patient Yes -Correct Side, Site, Position Yes -Correct Procedure Yes -Procedure Performed Yes -Type of Procedure Debridement -Clinical Debridement Subcutaneous -Tissue Removed Subcutaneous -Post Debridement (cm) - Length 0.1 -Post Debridement (cm) - Width 0.1 -Post Debridement (cm) - Depth 0.1 -Total Square (Post) (cm) 0.01 -Area of Debridement (cm) - Length 0.1 -Area of Debridement (cm) - Width 0.1 -Total Square (Area) (cm) 0.01 -Tunneling No -Undermining/Tunneling No -Circular Undermining No -Wound/Ulcer Outcome Not Healed -Foul Odor after Cleansing No -Bioengineered Tissue No -Bleeding Controlled with Pressure -Treatment Response Procedure Tolerated Well -Offloading No -Debridement - Subq, 1st 20sq cm Yes Pain Scale: 0-10 Numeric Is Patient Pain Free? Yes Assessment/Plan Assessment/Plan (1) Non-pressure 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: CODE(S): L97.422 - Non-pressure 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 PLAN: Excisional debridement of the left heel ulceration down to and including subcutaneous tissue with the number 5 mm dermal curette without incident. Predebridement measurement is 1.2 x 2.4 x 0.1 cm. Postdebridement measurement is 1.3 x 2.5 x 0.1 cm. Excisional debridement of the left dorsum ulceration down to and including subcutaneous tissue with a #5 millimeter dermal curette without incident. Predebridement measurement is eschar. Postdebridement measurement is 0.1 x 0.1 x 0.1. EpiFix 2.0 x 2.0 cm graft was applied to the left heel full-thickness ulceration with 100% use. Second application. The graft site was free and clear of any infection. The wound/skin graft substitute was dressed with nonadherent bandage secured in place with Steri-Strips followed by bolster dressing as well as a single layer Tubigrip. Patient is to call back home health care and set up dressing change 3 times a day for the dorsal wound on the left foot. Referral given for vascular follow-up. Follow-up in 1 week at the wound care center with Dr. Sampson. (2) Peripheral vascular disease: CODE(S): I73.9 - Peripheral vascular disease, unspecified
[2023-05-07 13:29] VITALS: BP 150/59; PULSE 59; RESP 20; TEMP 35.8
--- NOTE | 2023-05-07 14:01 | PN.PCM_ITS ---
History of Present Illness Date of Service: 05/07/23 Chief Complaint: Left foot ulcerations History of Wound: Chronic wounds left foot self treatment as well as SNF treatment Subjective Subjective Mr. Arreola is a 82-year-old male presenting for follow-up to the wound care center of left heel and dorsum ulceration. Patient has been doing home dressing changes at home. He has been approved for EpiFix as well as Santyl. He does his own dressing changes at home but would like home health care to come at least 2-3 times per week. Home health care has reached out. He is waiting to coordinate time. He denies trauma. Denies constitutional symptoms. No other pedal complaints at this time. He is also here to review his of vascular studies as well as labs. Objective Data Objective Data Vital Signs: Vital Signs Temp Pulse Resp BP O2 Del Method 96.5 F L 59 L 20 H 150/59 H Room Air 05/07/23 13:29 05/07/23 13:29 05/07/23 13:29 05/07/23 13:29 05/07/23 13:29 Oxygen Delivery Method Room Air Physical Exam Narrative Vascular: DP and PT pulses are faintly palpable. CFT is delayed. Evidence of hemosiderin deposits appreciated bilateral lower extremity. Skin temperature great is warm to warm from proximal ankle to distal digit. No focal increase noted. Neurological: Light touch intact. Epic or station is diminished. Patient does not respond to painful stimuli. Dermatological: Full-thickness ulceration appreciated to the left heel with fibrogranular tissue. Wound measures after debridement 1.1 x 2.2 x 0.1 cm. The left dorsal wound was debrided with a 5 mm dermal curette. Dorsal wound measures healed. Excisional debridement of the left heel ulceration down to and including subcutaneous tissue with the number 5 mm dermal curette without incident. Predebridement measurement is 1.0 x 2.0 x 0.1 cm. Postdebridement measurement is 1.1 x 2.2 x 0.1 cm. EpiFix 2.0 x 2.0 cm graft was applied to the left heel full-thickness ulceration with 100% use. Third application. The graft site was free and clear of any infection. The wound/skin graft substitute was dressed with nonadherent bandage secured in place with Steri-Strips followed by bolster dressing as well as a single layer Tubigrip. Musculoskeletal: No pain on palpation or with sharp debridement to both ulcerations to the left foot. No pain with calf compression. Debridement Note Debridement Note Debridement Free Text: Excisional debridement of the left heel ulceration down to and including subcutaneous tissue with the number 5 mm dermal curette without incident. Predebridement measurement is 1.0 x 2.0 x 0.1 cm. Postdebridement measurement is 1.1 x 2.2 x 0.1 cm. EpiFix 2.0 x 2.0 cm graft was applied to the left heel full-thickness ulceration with 100% use. Third application. The graft site was free and clear of any infection. The wound/skin graft substitute was dressed with nonadherent bandage secured in place with Steri-Strips followed by bolster dressing as well as a single layer Tubigrip. Post-Debridement Measurements and Additional Note: Post-Debridement Measurements/Treatment - Nurse 1 - General Ulcer Assessment Start: 04/30/23 09:55 Freq: Status: Active Protocol: GE Activity Type Activity Date Activity User E-sign Co-sign Detail Recorded Client Recorded Date Recorded By Document 04/30/23 09:57 KW [id number] 04/30/23 10:07 KW Document 05/07/23 13:29 KW Desktop 05/07/23 13:37 KW 04/30/23 05/07/23 09:57 13:29 - Today's Visit Information Type of service Follow-up Visit Follow-up Visit (Physician/SECURITY INCIDENT RESPONSE ENGINEER (Physician/SECURITY INCIDENT RESPONSE ENGINEER ) ) Arrival Mode Ambulatory, Ambulatory, Walker Walker Patient Identification Verified (Name & Yes Yes ) Vital Signs Temperature (97.8 F-99.1 F) 96.9 F L 96.5 F L Temperature Source Temporal Temporal Pulse Rate (60-100) 62 59 L Pulse Location Monitor Monitor Respiratory Rate (12-18) 20 H 20 H Respiratory rate source Observation Observation Oxygen Delivery Method Room Air Room Air Blood Pressure (90/60-120/80) 155/70 H 150/59 H Blood Pressure Mean (mm Hg) 98 89 Source Monitor Monitor Position Semi-Fowlers Sitting Blood Pressure Location Left Arm Left Arm History Since Last Visit- (Skip if this is Patient's initial visit) Have you changed medications since your No No last visit? Any new allergies or adverse reactions No No Had a fall/change in ADL's that may No No increase risk of falls Signs or symptoms of abuse and/or No No neglect since last visit Have you been in the hospital since your No last visit? Has dressing in place as prescribed Yes Has compression in place as prescribed No Has offloadiing in place as prescribed No Experienced any changes in pain level or No management Left Footwear Regular Shoe Surgical Shoe with pressure relief insole Right Footwear Regular Shoe Regular Shoe Pain Scale: 0-10 Numeric Is Patient Pain Free? Yes Yes - Nurse 1 - General Ulcer Measurement Start: 04/30/23 09:55 Freq: Status: Active Protocol: Activity Type Activity Date Activity User E-sign Co-sign Detail Recorded Client Recorded Date Recorded By Document 05/07/23 13:29 Desktop 05/07/23 13:37 05/07/23 13:29 Wound Center Nurse 1 #1 L Dorsal foot -Ulcer Cleansing Rinsed/ Irrigated with Saline -Anesthetic Used 5% Lidocaine Gel -Wound Comment(s) scabbed #2 L Heel -Current Size (cm) - Length 1.7 -Current Size (cm) - Width 1.6 -Current Size (cm) - Depth 0.1 -Total Square Cm 2.72 -Exudate Amt Small -Exudate Type Serosanguineous -Wound Margin Distinct, Outline Attached -Granulation Amt Medium (34-66%) -Granulation Quality [place] -Necrosis Amt Small (1-33%) -Necrotic Tissue Type Adherent Slough -Texture (Adelina-wound Skin Appearance) Assessed,Callus -Moisture (Adelina-wound Skin Appearance) Assessed,Dry/ Scaly -Color (Adelina-wound Skin Appearance) Assessed -Temperature (Adelina-wound Skin No Abnormality Appearance) (Pt Warm) -Ulcer Cleansing Rinsed/ Irrigated with Saline -Anesthetic Used 5% Lidocaine Gel - Nurse 2 - General Ulcer CM Notes Start: 04/30/23 09:55 Freq: Status: Active Protocol: Activity Type Activity Date Activity User E-sign Co-sign Detail Recorded Client Recorded Date Recorded By Document 04/30/23 10:11 Laptop 04/30/23 10:18 Document 05/07/23 13:43 Laptop 05/07/23 13:49 04/30/23 05/07/23 10:11 13:43 Wound Center Nurse 2 #1 L Dorsal foot -Time 10:17 -Correct Patient Yes No -Correct Side, Site, Position Yes No -Correct Procedure Yes No -Procedure Performed Yes No -Type of Procedure Debridement -Clinical Debridement Subcutaneous -Tissue Removed Subcutaneous -Post Debridement (cm) - Length 0.1 0 -Post Debridement (cm) - Width 0.1 0 -Post Debridement (cm) - Depth 0.1 0 -Total Square (Post) (cm) 0.01 0 -Area of Debridement (cm) - Length 0.1 0 -Area of Debridement (cm) - Width 0.1 0 -Total Square (Area) (cm) 0.01 0 -Tunneling No -Undermining/Tunneling No -Circular Undermining No -Wound/Ulcer Outcome Not Healed Healed- Epithelialized -Foul Odor after Cleansing No -Bioengineered Tissue No -Bleeding Controlled with Pressure -Treatment Response Procedure Tolerated Well -Offloading No -Debridement - Subq, 1st 20sq cm Yes #2 L Heel -Time 10:11 13:44 -Correct Patient Yes Yes -Correct Side, Site, Position Yes Yes -Correct Procedure Yes Yes -Procedure Performed Yes Yes -Type of Procedure Debridement Debridement -Clinical Debridement Subcutaneous Subcutaneous -Tissue Removed Subcutaneous Subcutaneous -Post Debridement (cm) - Length 1.3 2.2 -Post Debridement (cm) - Width 2.5 1.1 -Post Debridement (cm) - Depth 0.1 0.1 -Total Square (Post) (cm) 3.25 2.42 -Area of Debridement (cm) - Length 1.3 2.2 -Area of Debridement (cm) - Width 2.5 1.1 -Total Square (Area) (cm) 3.25 2.42 -Tunneling No No -Undermining/Tunneling No No -Circular Undermining No No -Wound/Ulcer Outcome Not Healed Not Healed -Ulcer Cleansing Rinsed/ Rinsed/ Irrigated with Irrigated with Saline Saline -Foul Odor after Cleansing No No -Bioengineered Tissue Yes Yes -Type of Bioengineered Tissue Epifix Epifix -Expiration Date 12/29/27 12/29/27 -Product Lot Number [id number] -Percent Used 100 100 -Lot number of Saline Used [id number] -Bleeding Controlled with Pressure Pressure -Treatment Response Procedure Procedure Tolerated Well Tolerated Well -Offloading No Yes -Type of Offloading Surgical Shoe -Debridement - Subq, 1st 20sq cm No No -Apply Skin Sub - 1st 25 sq cm - Feet 1 1 -Epifix (per sq cm) 4 4 Pain Scale: 0-10 Numeric Is Patient Pain Free? Yes Yes - Nurse 3 - General Ulcer D/C NN Start: 04/30/23 09:55 Freq: Status: Active Protocol: Activity Type Activity Date Activity User E-sign Co-sign Detail Recorded Client Recorded Date Recorded By Document 04/30/23 10:24 KW Desktop 04/30/23 10:25 KW 04/30/23 10:24 Wound Care Center Nurse 3 #1 L Dorsal foot -Ulcer Cleansing Rinsed/ Irrigated with Saline -Primary Dressing Covered/Secured with Dry Gauze & Roll Gauze, Secured with Tape #2 L Heel -Ulcer Cleansing Rinsed/ Irrigated with Saline -Primary Dressing Covered/Secured with Dry Gauze & Roll Gauze, Secured with Tape Pain Scale: 0-10 Numeric Is Patient Pain Free? Yes WC - Visit Discharge Discharge Condition Stable Ambulatory Status Walker Transportation Private Auto Medication Reconcilliation completed & No provided to patient/care provider Clinical Summary of Care Provided Yes Assessment/Plan Assessment/Plan (1) Non-pressure 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: CODE(S): L97.422 - Non-pressure 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 PLAN: Patient was examined evaluated. All findings were discussed with the patient. All questions were answered to the patient's satisfaction. Excisional debridement of the left heel ulceration down to and including subcutaneous tissue with the number 5 mm dermal curette without incident. Predebridement measurement is 1.0 x 2.0 x 0.1 cm. Postdebridement measurement is 1.1 x 2.2 x 0.1 cm. EpiFix 2.0 x 2.0 cm graft was applied to the left heel full-thickness ulceration with 100% use. Third application. The graft site was free and clear of any infection. The wound/skin graft substitute was dressed with nonadherent bandage secured in place with Steri-Strips followed by bolster dressing as well as a single layer Tubigrip. Follow-up 1 week. (2) Peripheral vascular disease: CODE(S): I73.9 - Peripheral vascular disease, unspecified
[2023-05-14 14:28] VITALS: BP 112/55; PULSE 62; RESP 16; TEMP 36.1
--- NOTE | 2023-05-14 16:21 | PCM.WC.PN ---
History of Present Illness Date of Service: 05/14/23 Chief Complaint: Left foot ulcerations History of Wound: Chronic wounds left foot self treatment as well as SNF treatment Subjective Subjective Mr. Arreola is a 82-year-old male presenting for follow-up to the wound care center of left heel ulcer. Patient has been getting EpiFix to the area with great improvement. He presents today for additional application. He denies trauma. Denies constitutional symptoms. He is kept his dressing clean dry and intact. No other pedal complaints at this time. Objective Data Objective Data Vital Signs: Vital Signs Temp Pulse Resp BP O2 Del Method 96.9 F L 62 16 112/55 L Room Air 05/14/23 14:28 05/14/23 14:28 05/14/23 14:28 05/14/23 14:28 05/14/23 14:28 Oxygen Delivery Method Room Air Physical Exam Narrative Vascular: DP and PT pulses are faintly palpable. CFT is delayed. Evidence of hemosiderin deposits appreciated bilateral lower extremity. Skin temperature great is warm to warm from proximal ankle to distal digit. No focal increase noted. Neurological: Light touch intact. Epic or station is diminished. Patient does not respond to painful stimuli. Dermatological: Full-thickness ulceration appreciated to the left heel with fibrogranular tissue. Wound measures after debridement 1.2 x 2.4 x 0.1 cm. The left dorsal wound was debrided with a 5 mm dermal curette. Dorsal wound measures healed. Excisional debridement of the left heel ulceration down to and including subcutaneous tissue with the number 5 mm dermal curette without incident. Predebridement measurement is 1.0 x 2.0 x 0.1 cm. Postdebridement measurement is 1.2 x 2.4 x 0.1 cm. EpiFix 2.0 x 2.0 cm graft was applied to the left heel full-thickness ulceration with 100% use. Fourth application. The graft site was free and clear of any infection. The wound/skin graft substitute was dressed with nonadherent bandage secured in place with Steri-Strips followed by bolster dressing as well as a single layer Tubigrip. Musculoskeletal: No pain on palpation or with sharp debridement to both ulcerations to the left foot. No pain with calf compression. Debridement Note Debridement Note Debridement Free Text: Excisional debridement of the left heel ulceration down to and including subcutaneous tissue with the number 5 mm dermal curette without incident. Predebridement measurement is 1.0 x 2.0 x 0.1 cm. Postdebridement measurement is 1.2 x 2.4 x 0.1 cm. EpiFix 2.0 x 2.0 cm graft was applied to the left heel full-thickness ulceration with 100% use. Fourth application. The graft site was free and clear of any infection. The wound/skin graft substitute was dressed with nonadherent bandage secured in place with Steri-Strips followed by bolster dressing as well as a single layer Tubigrip. Post-Debridement Measurements and Additional Note: Post-Debridement Measurements/Treatment WC - Nurse 1 - General Ulcer Assessment Start: 04/30/23 09:55 Freq: Status: Active Protocol: EG Activity Type Activity Date Activity User E-sign Co-sign Detail Recorded Client Recorded Date Recorded By Document 04/30/23 09:57 KW [id number] 04/30/23 10:07 KW Document 05/07/23 13:29 KW Desktop 05/07/23 13:37 KW Document 05/14/23 14:28 NRL Desktop 05/14/23 14:36 NRL 04/30/23 05/07/23 05/14/23 09:57 13:29 14:28 - Today's Visit Information Type of service Follow-up Visit Follow-up Visit Follow-up Visit (Physician/PLANT SAFETY LEADER (Physician/PLANT SAFETY LEADER (Physician/PLANT SAFETY LEADER ) ) ) Arrival Mode Ambulatory, Ambulatory, Ambulatory, Walker Walker Walker Patient Identification Verified (Name & Yes Yes Yes ) Vital Signs Temperature (97.8 F-99.1 F) 96.9 F L 96.5 F L 96.9 F L Temperature Source Temporal Temporal Temporal Pulse Rate (60-100) 62 59 L 62 Pulse Location Monitor Monitor Monitor Respiratory Rate (12-18) 20 H 20 H 16 Respiratory rate source Observation Observation Observation Oxygen Delivery Method Room Air Room Air Room Air Blood Pressure (90/60-120/80) 155/70 H 150/59 H 112/55 L Blood Pressure Mean (mm Hg) 98 89 74 Source Monitor Monitor Monitor Position Semi-Fowlers Sitting Sitting Blood Pressure Location Left Arm Left Arm Left Arm History Since Last Visit- (Skip if this is Patient's initial visit) Have you changed medications since your No No No last visit? Any new allergies or adverse reactions No No No Had a fall/change in ADL's that may No No No increase risk of falls Signs or symptoms of abuse and/or No No neglect since last visit Have you been in the hospital since your No No last visit? Has dressing in place as prescribed Yes Yes Has compression in place as prescribed No No Has offloadiing in place as prescribed No Experienced any changes in pain level or No No management Left Footwear Regular Shoe Surgical Shoe Surgical Shoe with pressure with pressure relief insole relief insole Right Footwear Regular Shoe Regular Shoe Regular Shoe Pain Scale: 0-10 Numeric Is Patient Pain Free? Yes Yes Yes WC - Nurse 1 - General Ulcer Measurement Start: 04/30/23 09:55 Freq: Status: Active Protocol: Activity Type Activity Date Activity User E-sign Co-sign Detail Recorded Client Recorded Date Recorded By Document 05/07/23 13:29 KW Desktop 05/07/23 13:37 KW Document 05/14/23 14:28 NRL Desktop 05/14/23 14:36 NRL 05/07/23 05/14/23 13:29 14:28 Wound Center Nurse 1 #1 L Dorsal foot -Ulcer Cleansing Rinsed/ Irrigated with Saline -Anesthetic Used 5% Lidocaine Gel -Wound Comment(s) scabbed #2 L Heel -Combined with other wound No -Current Size (cm) - Length 1.7 0.2 -Current Size (cm) - Width 1.6 1.4 -Current Size (cm) - Depth 0.1 0.1 -Total Square Cm 2.72 0.28 -Date of Last Picture (Recall this 05/14/23 field) -Epithelialization Medium 34-66% -Tunneling No -Undermining/Tunneling No -Exudate Amt Small Medium -Exudate Type Serosanguineous Serosanguineous -Wound Margin Distinct, Flat & Intact Outline Attached -Granulation Amt Medium (34-66%) Large (67-100%) -Granulation Quality [place] -Slough/Fibrin Yes -Necrosis Amt Small (1-33%) Small (1-33%) -Necrotic Tissue Type Adherent Slough Adherent Slough -Texture (Adelina-wound Skin Appearance) Assessed,Callus Assessed,Callus ,Scarring -Moisture (Adelina-wound Skin Appearance) Assessed,Dry/ Assessed Scaly -Color (Adelina-wound Skin Appearance) Assessed Assessed -Temperature (Adelina-wound Skin No Abnormality No Abnormality Appearance) (Pt Warm) (Pt Warm) -Tenderness on Palpation (Adelina-wound No Skin Appearance) -Ulcer Cleansing Rinsed/ Wound Cleanser Irrigated with Saline -Foul Odor after Cleansing No -Anesthetic Used 5% Lidocaine 5% Lidocaine Gel Gel WC - Nurse 2 - General Ulcer CM Notes Start: 04/30/23 09:55 Freq: Status: Active Protocol: Activity Type Activity Date Activity User E-sign Co-sign Detail Recorded Client Recorded Date Recorded By Document 04/30/23 10:11 Laptop 04/30/23 10:18 Document 05/07/23 13:43 Laptop 05/07/23 13:49 Document 05/14/23 14:52 Laptop 05/14/23 14:58 04/30/23 05/07/23 05/14/23 10:11 13:43 14:52 Wound Center Nurse 2 #1 L Dorsal foot -Time 10:17 -Correct Patient Yes No -Correct Side, Site, Position Yes No -Correct Procedure Yes No -Procedure Performed Yes No -Type of Procedure Debridement -Clinical Debridement Subcutaneous -Tissue Removed Subcutaneous -Post Debridement (cm) - Length 0.1 0 -Post Debridement (cm) - Width 0.1 0 -Post Debridement (cm) - Depth 0.1 0 -Total Square (Post) (cm) 0.01 0 -Area of Debridement (cm) - Length 0.1 0 -Area of Debridement (cm) - Width 0.1 0 -Total Square (Area) (cm) 0.01 0 -Tunneling No -Undermining/Tunneling No -Circular Undermining No -Wound/Ulcer Outcome Not Healed Healed- Epithelialized -Foul Odor after Cleansing No -Bioengineered Tissue No -Bleeding Controlled with Pressure -Treatment Response Procedure Tolerated Well -Offloading No -Debridement - Subq, 1st 20sq cm Yes #2 L Heel -Time 10:11 13:44 14:57 -Correct Patient Yes Yes Yes -Correct Side, Site, Position Yes Yes Yes -Correct Procedure Yes Yes Yes -Procedure Performed Yes Yes Yes -Type of Procedure Debridement Debridement Debridement -Clinical Debridement Subcutaneous Subcutaneous Subcutaneous -Tissue Removed Subcutaneous Subcutaneous Subcutaneous -Post Debridement (cm) - Length 1.3 2.2 2.4 -Post Debridement (cm) - Width 2.5 1.1 1.2 -Post Debridement (cm) - Depth 0.1 0.1 0.1 -Total Square (Post) (cm) 3.25 2.42 2.88 -Area of Debridement (cm) - Length 1.3 2.2 2.4 -Area of Debridement (cm) - Width 2.5 1.1 1.2 -Total Square (Area) (cm) 3.25 2.42 2.88 -Tunneling No No No -Undermining/Tunneling No No No -Circular Undermining No No No -Wound/Ulcer Outcome Not Healed Not Healed Not Healed -Ulcer Cleansing Rinsed/ Rinsed/ Rinsed/ Irrigated with Irrigated with Irrigated with Saline Saline Saline -Foul Odor after Cleansing No No No -Bioengineered Tissue Yes Yes Yes -Type of Bioengineered Tissue Epifix Epifix Epifix -Expiration Date 12/29/27 12/29/27 12/29/27 -Product Lot Number [id number] -Percent Used 100 100 100 -Lot number of Saline Used [id number] -Bleeding Controlled with Pressure Pressure Pressure -Treatment Response Procedure Procedure Procedure Tolerated Well Tolerated Well Tolerated Well -Offloading No Yes Yes -Type of Offloading Surgical Shoe Surgical Shoe -Debridement - Subq, 1st 20sq cm No No No -Apply Skin Sub - 1st 25 sq cm - Feet 1 1 1 -Epifix (per sq cm) 4 4 4 Pain Scale: 0-10 Numeric Is Patient Pain Free? Yes Yes Yes - Nurse 3 - General Ulcer D/C NN Start: 04/30/23 09:55 Freq: Status: Active Protocol: Activity Type Activity Date Activity User E-sign Co-sign Detail Recorded Client Recorded Date Recorded By Document 04/30/23 10:24 KW Desktop 04/30/23 10:25 KW 04/30/23 10:24 Wound Care Center Nurse 3 #1 L Dorsal foot -Ulcer Cleansing Rinsed/ Irrigated with Saline -Primary Dressing Covered/Secured with Dry Gauze & Roll Gauze, Secured with Tape #2 L Heel -Ulcer Cleansing Rinsed/ Irrigated with Saline -Primary Dressing Covered/Secured with Dry Gauze & Roll Gauze, Secured with Tape Pain Scale: 0-10 Numeric Is Patient Pain Free? Yes WC - Visit Discharge Discharge Condition Stable Ambulatory Status Walker Transportation Private Auto Medication Reconcilliation completed & No provided to patient/care provider Clinical Summary of Care Provided Yes Assessment/Plan Assessment/Plan (1) Non-pressure 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: CODE(S): L97.422 - Non-pressure 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 PLAN: Patient was examined and evaluated. All findings were discussed with the patient. All questions were answered to the patient's satisfaction. Excisional debridement of the left heel ulceration down to and including subcutaneous tissue with the number 5 mm dermal curette without incident. Predebridement measurement is 1.0 x 2.0 x 0.1 cm. Postdebridement measurement is 1.2 x 2.4 x 0.1 cm. EpiFix 2.0 x 2.0 cm graft was applied to the left heel full-thickness ulceration with 100% use. Fourth application. The graft site was free and clear of any infection. The wound/skin graft substitute was dressed with nonadherent bandage secured in place with Steri-Strips followed by bolster dressing as well as a single layer Tubigrip. The patient will follow-up in 1 week for in office Misonix debridement. (2) Peripheral vascular disease: CODE(S): I73.9 - Peripheral vascular disease, unspecified
[2023-05-21 13:21] VITALS: BP 143/50; PULSE 57; RESP 18; TEMP 36.2
--- NOTE | 2023-05-21 14:27 | PCM.WC.PN ---
History of Present Illness Date of Service: 05/21/23 Chief Complaint: Left foot ulcerations History of Wound: Chronic wounds left foot self treatment as well as SNF treatment Subjective Subjective Mr. Arreola is a 82-year-old male presenting for follow-up to the wound care center of left heel ulcer. Patient has been getting EpiFix to the area with great improvement. He presents today for additional application. He denies trauma. Denies constitutional symptoms. He is kept his dressing clean dry and intact. No other pedal complaints at this time. Objective Data Objective Data Vital Signs: Vital Signs Temp Pulse Resp BP O2 Del Method 97.2 F L 57 L 18 143/50 H Room Air 05/21/23 13:21 05/21/23 13:21 05/21/23 13:21 05/21/23 13:21 05/21/23 13:21 Oxygen Delivery Method Room Air Physical Exam Narrative Vascular: DP and PT pulses are faintly palpable. CFT is delayed. Evidence of hemosiderin deposits appreciated bilateral lower extremity. Skin temperature great is warm to warm from proximal ankle to distal digit. No focal increase noted. Neurological: Light touch intact. Epic or station is diminished. Patient does not respond to painful stimuli. Dermatological: Full-thickness ulceration appreciated to the left heel with fibrogranular tissue. Wound measures after debridement 1.0 x 2.0 x 0.1 cm. The left dorsal wound was debrided with a 5 mm dermal curette. Dorsal wound measures healed. Excisional debridement with Mixonix of the left heel ulceration down to and including subcutaneous tissue with the number 5 mm dermal curette without incident. Predebridement measurement is 0.8 x 1.7 x 0.1 cm. Postdebridement measurement is 1.0 x 2.0 x 0.1 cm. EpiFix 2.0 x 2.0 cm graft was applied to the left heel full-thickness ulceration with 100% use. Fifth application. The graft site was free and clear of any infection. The wound/skin graft substitute was dressed with nonadherent bandage secured in place with Steri-Strips followed by bolster dressing as well as a single layer Tubigrip. Musculoskeletal: No pain on palpation or with sharp debridement to both ulcerations to the left foot. No pain with calf compression. Debridement Note Debridement Note Debridement Free Text: Excisional debridement with Mixonix of the left heel ulceration down to and including subcutaneous tissue with the number 5 mm dermal curette without incident. Predebridement measurement is 0.8 x 1.7 x 0.1 cm. Postdebridement measurement is 1.0 x 2.0 x 0.1 cm. EpiFix 2.0 x 2.0 cm graft was applied to the left heel full-thickness ulceration with 100% use. Fifth application. The graft site was free and clear of any infection. The wound/skin graft substitute was dressed with nonadherent bandage secured in place with Steri-Strips followed by bolster dressing as well as a single layer Tubigrip. Post-Debridement Measurements and Additional Note: Post-Debridement Measurements/Treatment WC - Nurse 1 - General Ulcer Assessment Start: 04/30/23 09:55 Freq: Status: Active Protocol: GE Activity Type Activity Date Activity User E-sign Co-sign Detail Recorded Client Recorded Date Recorded By Document 04/30/23 09:57 KW [id number] 04/30/23 10:07 KW Document 05/07/23 13:29 KW Desktop 05/07/23 13:37 KW Document 05/14/23 14:28 NRL Desktop 05/14/23 14:36 NRL Document 05/21/23 13:21 GM Desktop 05/21/23 13:29 GM 04/30/23 05/07/23 05/14/23 09:57 13:29 14:28 - Today's Visit Information Type of service Follow-up Visit Follow-up Visit Follow-up Visit (Physician/FITTER MECHANIC (Physician/FITTER MECHANIC (Physician/FITTER MECHANIC ) ) ) Arrival Mode Ambulatory, Ambulatory, Ambulatory, Walker Walker Walker Transfer Assistance Patient Identification Verified (Name & Yes Yes Yes ) Patient Requires Transmission-Based Precautions Safety Precautions Vital Signs Temperature (97.8 F-99.1 F) 96.9 F L 96.5 F L 96.9 F L Temperature Source Temporal Temporal Temporal Pulse Rate (60-100) 62 59 L 62 Pulse Location Monitor Monitor Monitor Respiratory Rate (12-18) 20 H 20 H 16 Respiratory rate source Observation Observation Observation Oxygen Delivery Method Room Air Room Air Room Air Blood Pressure (90/60-120/80) 155/70 H 150/59 H 112/55 L Blood Pressure Mean (mm Hg) 98 89 74 Source Monitor Monitor Monitor Position Semi-Fowlers Sitting Sitting Blood Pressure Location Left Arm Left Arm Left Arm History Since Last Visit- (Skip if this is Patient's initial visit) Have you changed medications since your No No No last visit? Any new allergies or adverse reactions No No No Had a fall/change in ADL's that may No No No increase risk of falls Signs or symptoms of abuse and/or No No neglect since last visit Have you been in the hospital since your No No last visit? Has dressing in place as prescribed Yes Yes Has compression in place as prescribed No No Has offloadiing in place as prescribed No Experienced any changes in pain level or No No management Left Footwear Regular Shoe Surgical Shoe Surgical Shoe with pressure with pressure relief insole relief insole Right Footwear Regular Shoe Regular Shoe Regular Shoe Pain Scale: 0-10 Numeric Is Patient Pain Free? Yes Yes Yes 05/21/23 13:21 WC - Today's Visit Information Type of service Follow-up Visit (Physician/FITTER MECHANIC ) Arrival Mode Ambulatory, Walker Transfer Assistance None Patient Identification Verified (Name & Yes ) Patient Requires Transmission-Based No Precautions Safety Precautions Fall Prevention Vital Signs Temperature (97.8 F-99.1 F) 97.2 F L Temperature Source Temporal Pulse Rate (60-100) 57 L Pulse Location Monitor Respiratory Rate (12-18) 18 Respiratory rate source Observation Oxygen Delivery Method Room Air Blood Pressure (90/60-120/80) 143/50 H Blood Pressure Mean (mm Hg) 81 Source Monitor Position Sitting Blood Pressure Location Left Arm History Since Last Visit- (Skip if this is Patient's initial visit) Have you changed medications since your No last visit? Any new allergies or adverse reactions No Had a fall/change in ADL's that may No increase risk of falls Signs or symptoms of abuse and/or No neglect since last visit Have you been in the hospital since your No last visit? Has dressing in place as prescribed Has compression in place as prescribed N/A Has offloadiing in place as prescribed N/A Experienced any changes in pain level or No management Left Footwear Right Footwear Regular Shoe Pain Scale: 0-10 Numeric Is Patient Pain Free? Yes - Nurse 1 - General Ulcer Measurement Start: 04/30/23 09:55 Freq: Status: Active Protocol: Activity Type Activity Date Activity User E-sign Co-sign Detail Recorded Client Recorded Date Recorded By Document 05/07/23 13:29 KW Desktop 05/07/23 13:37 KW Document 05/14/23 14:28 NR Desktop 05/14/23 14:36 NRL Document 05/21/23 13:21 Desktop 05/21/23 13:29 05/07/23 05/14/23 05/21/23 13:29 14:28 13:21 Wound Center Nurse 1 #1 L Dorsal foot -Ulcer Cleansing Rinsed/ Irrigated with Saline -Anesthetic Used 5% Lidocaine Gel -Wound Comment(s) scabbed #2 L Heel -Combined with other wound No -Current Size (cm) - Length 1.7 0.2 1.3 -Current Size (cm) - Width 1.6 1.4 2.0 -Current Size (cm) - Depth 0.1 0.1 0.1 -Total Square Cm 2.72 0.28 2.60 -Date of Last Picture (Recall this 05/14/23 field) -Epithelialization Medium 34-66% Medium 34-66% -Tunneling No No -Undermining/Tunneling No No -Circular Undermining No -Change in Wound Grade/Stage No -Exudate Amt Small Medium Medium -Exudate Type Serosanguineous Serosanguineous Yellow/Green -Wound Margin Distinct, Flat & Intact Distinct, Outline Outline Attached Attached -Granulation Amt Medium (34-66%) Large (67-100%) Medium (34-66%) -Granulation Quality [place] Red -Slough/Fibrin Yes -Necrosis Amt Small (1-33%) Small (1-33%) Small (1-33%) -Necrotic Tissue Type Adherent Slough Adherent Slough Adherent Slough -Structure Exposed None/Limited to Skin Breakdown -Texture (Adelina-wound Skin Appearance) Assessed,Callus Assessed,Callus Assessed ,Scarring -Moisture (Adelina-wound Skin Appearance) Assessed,Dry/ Assessed Assessed Scaly -Color (Adelina-wound Skin Appearance) Assessed Assessed Assessed -Temperature (Adelina-wound Skin No Abnormality No Abnormality No Abnormality Appearance) (Pt Warm) (Pt Warm) (Pt Warm) -Tenderness on Palpation (Adelina-wound No Skin Appearance) -Ulcer Cleansing Rinsed/ Wound Cleanser Soap and Water Irrigated with Saline -Foul Odor after Cleansing No Yes, Due to Product Use -Anesthetic Used 5% Lidocaine 5% Lidocaine 5% Lidocaine Gel Gel Gel WC - Nurse 2 - General Ulcer CM Notes Start: 04/30/23 09:55 Freq: Status: Active Protocol: Activity Type Activity Date Activity User E-sign Co-sign Detail Recorded Client Recorded Date Recorded By Document 04/30/23 10:11 Laptop 04/30/23 10:18 Document 05/07/23 13:43 Laptop 05/07/23 13:49 Document 05/14/23 14:52 Laptop 05/14/23 14:58 04/30/23 05/07/23 05/14/23 10:11 13:43 14:52 Wound Center Nurse 2 #1 L Dorsal foot -Time 10:17 -Correct Patient Yes No -Correct Side, Site, Position Yes No -Correct Procedure Yes No -Procedure Performed Yes No -Type of Procedure Debridement -Clinical Debridement Subcutaneous -Tissue Removed Subcutaneous -Post Debridement (cm) - Length 0.1 0 -Post Debridement (cm) - Width 0.1 0 -Post Debridement (cm) - Depth 0.1 0 -Total Square (Post) (cm) 0.01 0 -Area of Debridement (cm) - Length 0.1 0 -Area of Debridement (cm) - Width 0.1 0 -Total Square (Area) (cm) 0.01 0 -Tunneling No -Undermining/Tunneling No -Circular Undermining No -Wound/Ulcer Outcome Not Healed Healed- Epithelialized -Foul Odor after Cleansing No -Bioengineered Tissue No -Bleeding Controlled with Pressure -Treatment Response Procedure Tolerated Well -Offloading No -Debridement - Subq, 1st 20sq cm Yes #2 L Heel -Time 10:11 13:44 14:57 -Correct Patient Yes Yes Yes -Correct Side, Site, Position Yes Yes Yes -Correct Procedure Yes Yes Yes -Procedure Performed Yes Yes Yes -Type of Procedure Debridement Debridement Debridement -Clinical Debridement Subcutaneous Subcutaneous Subcutaneous -Tissue Removed Subcutaneous Subcutaneous Subcutaneous -Post Debridement (cm) - Length 1.3 2.2 2.4 -Post Debridement (cm) - Width 2.5 1.1 1.2 -Post Debridement (cm) - Depth 0.1 0.1 0.1 -Total Square (Post) (cm) 3.25 2.42 2.88 -Area of Debridement (cm) - Length 1.3 2.2 2.4 -Area of Debridement (cm) - Width 2.5 1.1 1.2 -Total Square (Area) (cm) 3.25 2.42 2.88 -Tunneling No No No -Undermining/Tunneling No No No -Circular Undermining No No No -Wound/Ulcer Outcome Not Healed Not Healed Not Healed -Ulcer Cleansing Rinsed/ Rinsed/ Rinsed/ Irrigated with Irrigated with Irrigated with Saline Saline Saline -Foul Odor after Cleansing No No No -Bioengineered Tissue Yes Yes Yes -Type of Bioengineered Tissue Epifix Epifix Epifix -Expiration Date 12/29/27 12/29/27 12/29/27 -Product Lot Number [id number] -Percent Used 100 100 100 -Lot number of Saline Used [id number] -Bleeding Controlled with Pressure Pressure Pressure -Treatment Response Procedure Procedure Procedure Tolerated Well Tolerated Well Tolerated Well -Offloading No Yes Yes -Type of Offloading Surgical Shoe Surgical Shoe -Debridement - Subq, 1st 20sq cm No No No -Apply Skin Sub - 1st 25 sq cm - Feet 1 1 1 -Epifix (per sq cm) 4 4 4 Pain Scale: 0-10 Numeric Is Patient Pain Free? Yes Yes Yes - Nurse 3 - General Ulcer D/C NN Start: 04/30/23 09:55 Freq: Status: Active Protocol: Activity Type Activity Date Activity User E-sign Co-sign Detail Recorded Client Recorded Date Recorded By Document 04/30/23 10:24 Desktop 04/30/23 10:25 KW 04/30/23 10:24 Wound Care Center Nurse 3 #1 L Dorsal foot -Ulcer Cleansing Rinsed/ Irrigated with Saline -Primary Dressing Covered/Secured with Dry Gauze & Roll Gauze, Secured with Tape #2 L Heel -Ulcer Cleansing Rinsed/ Irrigated with Saline -Primary Dressing Covered/Secured with Dry Gauze & Roll Gauze, Secured with Tape Pain Scale: 0-10 Numeric Is Patient Pain Free? Yes - Visit Discharge Discharge Condition Stable Ambulatory Status Walker Transportation Private Auto Medication Reconcilliation completed & No provided to patient/care provider Clinical Summary of Care Provided Yes Assessment/Plan Assessment/Plan (1) Non-pressure 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: CODE(S): L97.422 - Non-pressure 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 PLAN: Patient was examined evaluated. All findings were discussed with patient. All questions were answered to patient satisfaction. Excisional debridement with Mixonix of the left heel ulceration down to and including subcutaneous tissue with the number 5 mm dermal curette without incident. Predebridement measurement is 0.8 x 1.7 x 0.1 cm. Postdebridement measurement is 1.0 x 2.0 x 0.1 cm. EpiFix 2.0 x 2.0 cm graft was applied to the left heel full-thickness ulceration with 100% use. Fifth application. The graft site was free and clear of any infection. The wound/skin graft substitute was dressed with nonadherent bandage secured in place with Steri-Strips followed by bolster dressing as well as a single layer Tubigrip. Follow-up in 1 week. (2) Peripheral vascular disease: CODE(S): I73.9 - Peripheral vascular disease, unspecified
== END 2023-05-29 23:59 | disposition home or self-care (01) ==
LOC: WC 13:30
PROVIDERS: PCP Internal Medicine; Referring Provider Internal Medicine; Visit Provider Podiatrist Foot & Ankle Surgery
DX: I73.9 Peripheral vascular disease, unspecified (principal); L97.422 Non-pressure chronic ulcer of left heel and midfoot with fat layer exposed; R22.41 Localized swelling, mass and lump, right lower limb; R22.42 Localized swelling, mass and lump, left lower limb
CPT/HCPCS: 11042; 15275; Q4186

== ENCOUNTER 2023-06-06 14:00 | Emergency (ER) | payer MEDICARE, OTHER, SELFPAY ==
[2023-06-06 14:01] VITALS: BP 153/58; PULSE 58; RESP 18; TEMP 36.1; O2SAT 97
--- NOTE | 2023-06-06 14:46 | ED.VIS.LOWEX ---
HPI History of Present Illness Chief Complaint: Wound Detail of Chief Complaint: Right lower extremity wound Informant: patient Narrative Narrative: Patient presents to the emergency department complaint of a wound to his right leg. Patient states that he fell and bumped his leg on a piece of marble at home 2 days ago. He sustained a laceration to the leg and his remedy developer and others have helped him dress the wound. Today he saw a visiting nurse who advised him to come to the ER to get evaluated. The nurse was unsure if he would need sutures. Patient up-to-date on tetanus. [facility] Medical History Alcohol use Atherosclerotic heart disease of [place] coronary artery without angina pectoris Atrial fibrillation and flutter Cardiology follow-up encounter Carotid artery stenosis Dietary restriction Elevated troponin Emphysema of lung Essential hypertension Fever Former smoker Hematemesis/vomiting blood High cholesterol History of atrial fibrillation History of cardioversion (~05/09/20) History of coronary artery disease History of echocardiogram History of edema History of GI bleed History of right inguinal hernia History of stress test History of transesophageal echocardiography (ROSI) History of umbilical hernia Hx of ulcerative colitis Hypercholesterolemia Hyperlipidemia Hypertension Injury of head and neck long-term (current) use 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 Mitral valve insufficiency PAD (peripheral artery disease) Premature atrial contractions Right carotid bruit Subclavian artery stenosis, left (~10/15/19) Thrombocytopenia Thrombocytopenia Thyroid disease Ulcerative colitis Upper GI bleed Upper GI bleed Walker as ambulation aid Wears glasses Wears hearing aid Home Medications ferrous sulfate 325 mg (65 mg iron) tablet 325 mg PO DAILY vitamin 05/28/15 [History Last Taken 05/09/20] vitamin B complex 1 each PO DAILY vitamin 02/07/16 [History Last Taken 05/09/20] levothyroxine 50 mcg tablet 75 mcg PO DAILY thyroid 06/13/20 [History Last Taken Unknown] acetaminophen 500 mg tablet 1,000 mg (2 x 500 mg) PO Q6H PRN PRN Pain Score 1-5 #0 tabs 12/19/22 [Rx Last Taken Unknown] aspirin 81 mg tablet,delayed release 81 mg PO DAILY 04/14/23 [History Last Taken Unknown] atorvastatin 40 mg tablet (Lipitor) 40 mg PO DAILY cholesterol #90 tabs 04/14/23 [Rx Last Taken Unknown] balsalazide 750 mg capsule (Colazal) 2,250 mg PO BID 04/14/23 [History Last Taken Unknown] hydralazine 50 mg tablet 50 mg PO BID 04/14/23 [History Last Taken Unknown] amiodarone 200 mg tablet See Rx Instructions .Route .COMPLEX #90 TABLETS 05/09/23 [Rx Last Taken Unknown] amlodipine 10 mg tablet 10 mg PO DAILY #90 tabs 05/20/23 [Rx Last Taken Unknown] carvedilol 3.125 mg tablet 3.125 mg PO BID heart #180 tabs 05/21/23 [Rx Last Taken Unknown] lisinopril 20 mg tablet 20 mg PO DAILY #90 tabs 05/21/23 [Rx Last Taken Unknown] Allergy/AdvReac Type Severity Reaction Status Date / Time hydrochlorothiazide Allergy Severe Rash Verified 06/06/23 14:01 furosemide [From Lasix] Allergy Severe Verified 06/06/23 14:01 Rash Itchy lovastatin [From Mevacor] Allergy Rash Verified 06/06/23 14:01 Family History Father CAD (coronary artery disease) Mother Cancer breast Surgical History Aortocoronary bypass status (~02/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) History of cardiac catheterization History of hand surgery History of right inguinal hernia repair History of umbilical hernia repair History of vasectomy Hx of CABG Hx of colonoscopy Hx of esophagogastroduodenoscopy Hx of heart bypass surgery S/P right inguinal hernia repair S/P umbilical hernia repair, follow-up exam Status post insertion of drug-eluting stent into right coronary artery for coronary artery disease (~04/2009) Social History adopted: No household members: spouse housing: house number of children: 2 current occupational status: retired Smoking Status: Former smoker Tobacco: How many years used: 50 (stopped about 10 yrs ago) how long ago did patient quit smokin years ago alcohol intake: current alcohol intake frequency: 3 or more drinks per day Alcohol type: beer, wine and hard liquor substance use type: does not use caffeine: Yes Type: coffee Number of servings: 2 ROS ROS ED Review of Systems ROS Unobtainable: other Constitutional Constitutional ED: Reports lethargy; Denies chills, fever(s), sweats or weight loss Eyes Eyes: Denies blurry vision, change in vision or diplopia ENT ENT ED: Denies rhinorrhea or sore throat Cardiovascular Cardiovascular: Denies chest pain, orthopnea or racing heartbeat Respiratory/Chest Respiratory/Chest: Denies cough, dyspnea, dyspnea on exertion, orthopnea or sputum Gastrointestinal Gastrointestinal: Denies abdominal pain, diarrhea, nausea or vomiting Genitourinary Genitourinary ED: Denies dysuria, hematuria or urinary frequency Musculoskeletal Musculoskeletal: Reports other Details: Wound/laceration to right leg ; Denies arthralgias, back pain, myalgias or neck pain Integumentary Denies abscess, Abrasions or rash Neurologic Neurologic: Denies headache(s) or weakness Psychiatric Psychiatric: Denies anxiety, depression or suicidal thoughts Endocrine Endocrinology: Denies polydipsia, polyphagia or polyuria Hematologic/Lymphatic Hematologic/Lymphatic: Denies easy bleeding, easy bruising or lymphadenopathy Allergic/Immunologic Allergic/Immunologic ED: Denies mouth swelling, tongue swelling or urticaria EXAM Physical Exam Const Vital Signs: 06/06/23 14:01 Temperature 97.0 F L Temperature Source Temporal Pulse Rate 58 L Respiratory Rate 18 Blood Pressure 153/58 H Blood Pressure Mean 89 Pulse Ox 97 Oxygen Delivery Method Room Air Positive well nourished and well developed General Appearance ED: well developed and NAD HEENT Reports TM's clear and moist mucous membranes normocephalic and atraumatic; Negative for trauma or tenderness Tympanic Membrane ED: Yes TM's clear Eyes PERRL and EOMs intact bilaterally General Eye ED: Negative for pale conjunctiva or scleral icterus Neck no lymphadenopathy, supple and no JVD General: Negative for tenderness Chest Wall inspection of chest normal and palpation of chest normal Chest: Negative for tenderness Resp normal respiratory effort and clear to auscultation bilaterally Effort and Inspection: Negative for respiratory distress or pain with movement Auscultation: Negative for rhonchi, wheezes or diminished lung sounds Cardio regular rate, regular rhythm, S1 normal heart sound, S2 normal heart sound and no murmurs Peripheral Pulses: pulses 2+ throughout GI normal to inspection, nondistended, normoactive bowel sounds, soft to palpation, non-tender, non-distended and no masses Back/Spine no CVA tenderness and no thoracic nor lumbar tenderness Extremity Extremity Narrative: Lower extremity-patient has an area over the mid hodgson and medial calf of a laceration measuring approximately 6 cm in length that is old. There is no evidence of cellulitis or infection. He does have some clot in the skin up. Neurovascular intact distally. No bony tenderness on exam. General Extremety ED: Negative for edema General Extremity: Negative for edema Neuro oriented x3, CN's II-XII intact bilaterally, no sensory deficits noted and gait normal Sensorium / Orientation: awake, alert, oriented to person, oriented to place and oriented to time Motor Exam: strength 5/5 throughout and strength abnormal Psych mental status grossly normal Skin no rashes or lesions noted and no wounds MDM MDM MDM Narrative Medical decision making narrative: He has an old wound to the right lower extremity. Not amenable to suture repair as it has been several days. I did remove some of the subcutaneous clot to allow the skin to sit more flush. Clean dressing will be applied and an Manish wrap to apply some pressure will be applied. Patient currently not on blood thinners. Advised to follow-up with his primary care physician within the next 3 to 5 days for wound check. Advised return if increasing pain, redness, swelling, or condition worsen anyway. Discharge Plan Triage Chief Complaint: Wound ED Provider: Lupe Joe Dx/Rx/DC Orders Clinical Impression: Laceration of right lower extremity Instructions: ED Laceration, Old: Not Sutured Prescriptions: No Action aspirin 81 mg tablet,delayed release (DR/EC) 81 mg PO DAILY balsalazide [Colazal] 750 mg capsule 2,250 mg PO BID hydralazine 50 mg tablet 50 mg PO BID ferrous sulfate 325 MG tablet 325 mg PO DAILY Patient Comments: Iron supplement vitamin B complex 1 EACH capsule 1 each PO DAILY Patient Comments: Vitamin supplement acetaminophen 500 mg Tablet 1,000 mg PO Q6H PRN PRN (Reason: Pain Score 1-5) Qty: 0 0RF levothyroxine 50 mcg tablet 75 mcg PO DAILY atorvastatin [Lipitor] 40 mg tablet 40 mg PO DAILY Qty: 90 3RF amiodarone 200 mg tablet See Rx Instructions .ROUTE .COMPLEX Qty: 90 3RF Dose Instruction: TAKE 1 TABLET BY MOUTH DAILY FOR AFIB/FLUTTER Rx Instructions: TAKE 1 TABLET BY MOUTH DAILY FOR AFIB/FLUTTER amlodipine 10 mg tablet 10 mg PO DAILY Qty: 90 3RF carvedilol 3.125 mg tablet 3.125 mg PO BID Qty: 180 0RF lisinopril 20 mg tablet 20 mg PO DAILY Qty: 90 3RF Primary Care Provider: Paco Norman Referrals: Paco Norman MD [Primary Care Provider] - 3-5 Days Activity Restrictions/Additional Instructions: Follow-up with your primary care physician for wound check in 3 to 5 days. You may also follow-up with the wound center to follow the wound until it has healed. Disposition Disposition: Home, Self Care
[2023-06-06 17:06] VITALS: BP 158/76; PULSE 60; RESP 16; O2SAT 92; O2SAT 98
== END 2023-06-06 17:08 | disposition home or self-care (01) ==
LOC: ED 14:54
PROVIDERS: Emergency Provider Emergency Medicine; PCP Family Medicine; Visit Provider Emergency Medicine
DX: S81.811A Laceration without foreign body, right lower leg, initial encounter (principal); I25.10 Atherosclerotic heart disease of native coronary artery without angina pectoris; X58.XXXA Exposure to other specified factors, initial encounter; Z87.891 Personal history of nicotine dependence; Z95.1 Presence of aortocoronary bypass graft
CPT/HCPCS: 99282

== ENCOUNTER 2023-06-18 13:30 | Outpatient (RCR) | payer MEDICARE, OTHER, SELFPAY ==
[2023-05-30 00:15] VITALS: BP 143/50; PULSE 57; RESP 18; TEMP 36.2
[2023-06-04 11:30] VITALS: BP 140/62; PULSE 74; RESP 18; TEMP 36.1
--- NOTE | 2023-06-04 13:46 | PCM.WC.PN ---
History of Present Illness Date of Service: 06/04/23 Chief Complaint: Left foot ulcerations History of Wound: Chronic wounds left foot self treatment as well as SNF treatment Subjective Subjective Mr. Arreola is a 82-year-old male presenting for follow-up to the wound care center of left heel ulcer. Patient has been getting EpiFix to the area with great improvement. He presents today for additional application. He reports to hitting his left hodgson over the bed rail 2 weeks ago. No treatment thus far. Denies constitutional symptoms. He is kept his dressing clean dry and intact. No other pedal complaints at this time. Objective Data Objective Data Vital Signs: Vital Signs Temp Pulse Resp BP 97 F L 74 18 140/62 H 06/04/23 11:30 06/04/23 11:30 06/04/23 11:30 06/04/23 11:30 Physical Exam Narrative Vascular: DP and PT pulses are faintly palpable. CFT is delayed. Evidence of hemosiderin deposits appreciated bilateral lower extremity. Skin temperature great is warm to warm from proximal ankle to distal digit. Nonpitting edema appreciated to the right lower extremity. No focal increase noted. Neurological: Light touch intact. Epic or station is diminished. Patient does not respond to painful stimuli. Dermatological: Full-thickness ulceration appreciated to the left heel with fibrogranular tissue. Wound measures after debridement 1.0 x 2.0 x 0.1 cm. Evidence of full-thickness ulceration secondary to laceration to anterior aspect of the right leg. Right leg ulceration measures 4.5 x 1.2 x 0.2 cm. Evidence of blanchable erythema to the right leg. Excisional debridement down to and including subcutaneous tissue with a #5 minimally dermal curette to the right anterior leg ulceration without incident. Predebridement measurement is 4.0 x 1.0 x 0.1 cm. Post right measurement is 4.5 x 1.2 x 0.2 cm. Excisional debridement down to and including subcutaneous tissue with a number 5 mm dermal curette to the left heel without incident. Predebridement measurement is 0.9 x 0.8 x 0.1 cm. Postdebridement measurement is 1.0 x 1.9 x 0.1 cm. EpiFix 2.0 x 2.0 cm graft was applied to the left heel full-thickness ulceration with 100% use. Sixth application. The graft site was free and clear of any infection. The wound/skin graft substitute was dressed with nonadherent bandage secured in place with Steri-Strips followed by bolster dressing as well as a single layer Tubigrip. Musculoskeletal: No pain on palpation or with sharp debridement to both ulcerations to the left foot. No pain with calf compression. Debridement Note Debridement Note Debridement Free Text: Excisional debridement down to and including subcutaneous tissue with a #5 minimally dermal curette to the right anterior leg ulceration without incident. Predebridement measurement is 4.0 x 1.0 x 0.1 cm. Post right measurement is 4.5 x 1.2 x 0.2 cm. Excisional debridement down to and including subcutaneous tissue with a number 5 mm dermal curette to the left heel without incident. Predebridement measurement is 0.9 x 0.8 x 0.1 cm. Postdebridement measurement is 1.0 x 1.9 x 0.1 cm. EpiFix 2.0 x 2.0 cm graft was applied to the left heel full-thickness ulceration with 100% use. Sixth application. The graft site was free and clear of any infection. The wound/skin graft substitute was dressed with nonadherent bandage secured in place with Steri-Strips followed by bolster dressing as well as a single layer Tubigrip. Post-Debridement Measurements and Additional Note: Post-Debridement Measurements/Treatment [facility] Nurse 1 - General Ulcer Assessment Start: 06/04/23 11:28 Freq: Status: Active Protocol: .LOWEXT Activity Type Activity Date Activity User E-sign Co-sign Detail Recorded Client Recorded Date Recorded By Document 06/04/23 11:30 Desktop 06/04/23 11:37 DL 06/04/23 11:30 - Today's Visit Information Type of service Follow-up Visit (Physician/SOCIAL STUDIES DEPARTMENT CHAIR ) Arrival Mode Ambulatory, Walker Transfer Assistance None Patient Identification Verified (Name & Yes ) Patient Requires Transmission-Based No Precautions Vital Signs Temperature (97.8 F-99.1 F) 97 F L Temperature Source Temporal Pulse Rate (60-100) 74 Pulse Location Monitor Respiratory Rate (12-18) 18 Respiratory rate source Observation Blood Pressure (90/60-120/80) 140/62 H Blood Pressure Mean (mm Hg) 88 Source Monitor History Since Last Visit- (Skip if this is Patient's initial visit) Have you changed medications since your No last visit? Any new allergies or adverse reactions No Had a fall/change in ADL's that may No increase risk of falls Signs or symptoms of abuse and/or No neglect since last visit Have you been in the hospital since your No last visit? Has dressing in place as prescribed Yes Has compression in place as prescribed N/A Has offloadiing in place as prescribed Yes Experienced any changes in pain level or No management Left Footwear Slipper Right Footwear Slipper Pain Scale: 0-10 Numeric Is Patient Pain Free? Yes WC - Nurse 1 - General Ulcer Measurement Start: 06/04/23 11:28 Freq: Status: Active Protocol: Activity Type Activity Date Activity User E-sign Co-sign Detail Recorded Client Recorded Date Recorded By Document 06/04/23 11:30 DL Desktop 06/04/23 11:37 DL 06/04/23 11:30 Wound Center Nurse 1 #3 R Hodgson -Current Size (cm) - Length 4.2 -Current Size (cm) - Width 1.9 -Current Size (cm) - Depth 0.2 -Total Square Cm 7.98 -Photo Taken Yes -Classification - Thickness Full Thickness without Exposed Support Structure -Exudate Amt Medium -Exudate Type Serosanguineous -Wound Margin Distinct, Outline Attached -Granulation Amt Medium (34-66%) -Granulation Quality Red -Necrosis Amt Medium (34-66%) -Necrotic Tissue Type Adherent Slough -Structure Exposed N/A -Texture (Adelina-wound Skin Appearance) Scarring -Moisture (Adelina-wound Skin Appearance) Dry/Scaly -Color (Adelina-wound Skin Appearance) Hemosiderin Staining -Temperature (Adelina-wound Skin No Abnormality Appearance) (Pt Warm) -Tenderness on Palpation (Adelina-wound No Skin Appearance) -Ulcer Cleansing Soap and Water -Foul Odor after Cleansing No -Anesthetic Used 5% Lidocaine Gel #2 L Heel -Current Size (cm) - Length 1.8 -Current Size (cm) - Width 1.7 -Current Size (cm) - Depth 0.1 -Total Square Cm 3.06 -Exudate Amt Medium -Exudate Type Serosanguineous -Wound Margin Distinct, Outline Attached -Granulation Amt Small (1-33%) -Necrosis Amt Large (67-100%) -Necrotic Tissue Type Adherent Slough -Structure Exposed N/A -Texture (Adelina-wound Skin Appearance) Scarring -Moisture (Adelina-wound Skin Appearance) Dry/Scaly -Color (Adelina-wound Skin Appearance) Hemosiderin Staining -Temperature (Adelina-wound Skin No Abnormality Appearance) (Pt Warm) -Ulcer Cleansing Soap and Water -Foul Odor after Cleansing No -Anesthetic Used 5% Lidocaine Gel WC - Nurse 2 - General Ulcer CM Notes Start: 06/04/23 11:28 Freq: Status: Active Protocol: Activity Type Activity Date Activity User E-sign Co-sign Detail Recorded Client Recorded Date Recorded By Document 06/04/23 12:09 Laptop 06/04/23 12:16 06/04/23 12:09 Wound Center Nurse 2 #3 R Hodgson -Time 12:10 -Correct Patient Yes -Correct Side, Site, Position Yes -Correct Procedure Yes -Procedure Performed Yes -Type of Procedure Debridement -Clinical Debridement Subcutaneous -Tissue Removed Subcutaneous -Post Debridement (cm) - Length 4.5 -Post Debridement (cm) - Width 1.5 -Post Debridement (cm) - Depth 0.2 -Total Square (Post) (cm) 6.75 -Area of Debridement (cm) - Length 4.5 -Area of Debridement (cm) - Width 1.5 -Total Square (Area) (cm) 6.75 -Tunneling No -Undermining/Tunneling No -Circular Undermining No -Wound/Ulcer Outcome Not Healed -Ulcer Cleansing Rinsed/ Irrigated with Saline -Foul Odor after Cleansing No -Bioengineered Tissue No -Bleeding Controlled with Pressure -Treatment Response Procedure Tolerated Well -Debridement - Subq, 1st 20sq cm Yes #2 L Heel -Time 12:14 -Correct Patient Yes -Correct Side, Site, Position Yes -Correct Procedure Yes -Procedure Performed Yes -Type of Procedure Debridement -Clinical Debridement Subcutaneous -Tissue Removed Subcutaneous -Post Debridement (cm) - Length 1 -Post Debridement (cm) - Width 1.9 -Post Debridement (cm) - Depth 0.1 -Total Square (Post) (cm) 1.9 -Area of Debridement (cm) - Length 1 -Area of Debridement (cm) - Width 1.9 -Total Square (Area) (cm) 1.9 -Tunneling No -Undermining/Tunneling No -Circular Undermining No -Wound/Ulcer Outcome Not Healed -Ulcer Cleansing Rinsed/ Irrigated with Saline -Foul Odor after Cleansing No -Bioengineered Tissue Yes -Type of Bioengineered Tissue Epifix -Expiration Date 02/29/28 -Product Lot Number [id number] -Percent Used 100 -Lot number of Saline Used [id number] -Bleeding Controlled with Pressure -Treatment Response Procedure Tolerated Well -Offloading No -Type of Offloading Surgical Shoe -Debridement - Subq, 1st 20sq cm No -Apply Skin Sub - 1st 25 sq cm - Feet 1 -Epifix (per sq cm) 4 Pain Scale: 0-10 Numeric Is Patient Pain Free? Yes - Nurse 3 - General Ulcer D/C NN Start: 06/04/23 11:28 Freq: Status: Active Protocol: Activity Type Activity Date Activity User E-sign Co-sign Detail Recorded Client Recorded Date Recorded By Document 06/04/23 11:57 KW Desktop 06/04/23 11:59 KW 06/04/23 11:57 Wound Care Center Nurse 3 #3 R Hodgson -Other Dressing SANTYL -Primary Dressing Covered/Secured with Dry Gauze & Roll Gauze, Secured with Tape #2 L Heel -Primary Dressing Covered/Secured with Dry Gauze & Roll Gauze, Secured with Tape BLE -Tubular Bandage Single Layer -Size of Tubigrip Used Size E -Size E ($) 2 Pain Scale: 0-10 Numeric Is Patient Pain Free? Yes - Visit Discharge Discharge Condition Stable Ambulatory Status Ambulatory Transportation Private Auto Medication Reconcilliation completed & No provided to patient/care provider Clinical Summary of Care Provided Yes Assessment/Plan Assessment/Plan (1) Non-pressure 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: CODE(S): L97.422 - Non-pressure 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 PLAN: Patient was examined and evaluated. All findings were discussed with the patient. All questions were answered to the patient's satisfaction. Excisional debridement down to and including subcutaneous tissue with a #5 minimally dermal curette to the right anterior leg ulceration without incident. Predebridement measurement is 4.0 x 1.0 x 0.1 cm. Post right measurement is 4.5 x 1.2 x 0.2 cm. Excisional debridement down to and including subcutaneous tissue with a number 5 mm dermal curette to the left heel without incident. Predebridement measurement is 0.9 x 0.8 x 0.1 cm. Postdebridement measurement is 1.0 x 1.9 x 0.1 cm. EpiFix 2.0 x 2.0 cm graft was applied to the left heel full-thickness ulceration with 100% use. Sixth application. The graft site was free and clear of any infection. The wound/skin graft substitute was dressed with nonadherent bandage secured in place with Steri-Strips followed by bolster dressing as well as a single layer Tubigrip. Culture of the new right leg ulceration was taken. Will place the patient on antibiotics if needed. The right lower extremity was dressed with Santyl, moist to 4 x 4 dry sterile dressing and a single layer Tubigrip was applied. Follow-up 1 week. (2) Non-pressure chronic ulcer of unspecified part of right lower leg with fat layer exposed: CODE(S): L97.912 - Non-pressure chronic ulcer of unspecified part of right lower leg with fat layer exposed (3) Cellulitis of right leg: CODE(S): L03.115 - Cellulitis of right lower limb (4) Edema: CODE(S): R60.9 - Edema, unspecified (5) Peripheral vascular disease: CODE(S): I73.9 - Peripheral vascular disease, unspecified
--- NOTE | 2023-06-09 09:32 | WC ---
Dr Sampson informed me that he called in 2 ATB's to preferred pharmacy based on his positive wound cultures. Called and left a voicemail with patient informing him and to have him call to let us know he received the message.
[2023-06-11 11:37] VITALS: BP 139/62; PULSE 71; RESP 18; TEMP 36.2
--- NOTE | 2023-06-11 12:54 | PCM.WC.PN ---
History of Present Illness Date of Service: 06/11/23 Chief Complaint: Left foot ulcerations History of Wound: Chronic wounds left foot self treatment as well as SNF treatment Subjective Subjective Mr. Arreola is a 82-year-old male presenting to the wound care center today for follow-up and evaluation of application of skin graft substitute to the left heel as well as evaluation of the right hodgosn ulceration secondary to trauma. Patient states that he was seen in the emergency department at [facility] on 06/06/2023 secondary to a fall where he created a large laceration to the proximal aspect of his right leg. Patient was seen by emergency rooms doctors evaluated and discharged home. Today the patient presents for evaluation of bilateral leg wounds. He does admit to trauma. He denies constitutional symptoms. No other pedal complaints at this time. Objective Data Objective Data Vital Signs: Vital Signs Temp Pulse Resp BP 97.1 F L 71 18 139/62 H 06/11/23 11:37 06/11/23 11:37 06/11/23 11:37 06/11/23 11:37 Lab / Micro Data Micro: Microbiology 06/04/23 11:49 Wound - Leg, Right Gram Stain - Final 06/04/23 11:49 Wound - Leg, Right Wound Culture - Final Klebsiella pneumoniae sp pneum Meth. resistant Staph. aureus Corynebacterium striatum Pseudomonas aeruginosa 06/04/23 11:49 Wound - Leg, Right Anaerobic Culture - Final No anaerobic bacteria isolated. Physical Exam Narrative Vascular: DP and PT pulses are faintly palpable. CFT is delayed. Evidence of hemosiderin deposits appreciated bilateral lower extremity. Skin temperature great is warm to warm from proximal ankle to distal digit. Nonpitting edema appreciated to the right lower extremity. No focal increase noted. Neurological: Light touch intact. Epic or station is diminished. Patient does not respond to painful stimuli. Dermatological: Full-thickness ulceration appreciated to the left heel with fibrogranular tissue. Wound measures after debridement 0.8 x 2.0 x 0.1 cm. Evidence of full-thickness ulceration secondary to laceration to anterior aspect of the right leg. Right leg central ulceration measures 4.5 x 1.0 x 0.1 cm, inferior ulceration measures 2.0 x 0.5 x 0.1 cm, proximal medial leg measures 5.0 x 1.2 x 0.5 cm. No evidence of probe to bone however there are new proximal medial right leg wound probes to muscle. Evidence of blanchable erythema to the right leg. Excisional debridement with Misonix down to and including subcutaneous tissue to the right anterior leg ulceration without incident. Predebridement measurement is 4.0 x 1.0 x 0.1 cm. Post right measurement is 4.5 x 1.0 x 0.1 cm. Excisional debridement with Misonix down to and including subcutaneous tissue to the right inferior leg ulceration without incident. Predebridement measurement is 1.8 x 0.4 x 0.1 cm. Post right measurement is 2.0 x 0.5 x 0.1 cm. Excisional debridement with Misonix down to and including subcutaneous tissue, fascia and muscle to the right proximal medial leg ulceration without incident. Predebridement measurement is 4.8 x 1.0 x 0.3 cm. Post right measurement is 5.0 x 1.2 x 0.5 cm. Excisional debridement with Misonix down to and including subcutaneous tissue to the left heel without incident. Predebridement measurement is 0.7 x 0.6 x 0.1 cm. Postdebridement measurement is 0.8 x 2.0 x 0.1 cm. EpiFix 2.0 x 2.0 cm graft was applied to the left heel full-thickness ulceration with 100% use. Seventh application. The graft site was free and clear of any infection. The wound/skin graft substitute was dressed with nonadherent bandage secured in place with Steri-Strips followed by bolster dressing as well as a single layer Tubigrip. Musculoskeletal: No pain on palpation or with sharp debridement to both ulcerations to the left foot. No pain with calf compression. Debridement Note Debridement Note Debridement Free Text: Excisional debridement with Misonix down to and including subcutaneous tissue to the right anterior leg ulceration without incident. Predebridement measurement is 4.0 x 1.0 x 0.1 cm. Post right measurement is 4.5 x 1.0 x 0.1 cm. Excisional debridement with Misonix down to and including subcutaneous tissue to the right inferior leg ulceration without incident. Predebridement measurement is 1.8 x 0.4 x 0.1 cm. Post right measurement is 2.0 x 0.5 x 0.1 cm. Excisional debridement with Misonix down to and including subcutaneous tissue, fascia and muscle to the right proximal medial leg ulceration without incident. Predebridement measurement is 4.8 x 1.0 x 0.3 cm. Post right measurement is 5.0 x 1.2 x 0.5 cm. Excisional debridement with Misonix down to and including subcutaneous tissue to the left heel without incident. Predebridement measurement is 0.7 x 0.6 x 0.1 cm. Postdebridement measurement is 0.8 x 2.0 x 0.1 cm. EpiFix 2.0 x 2.0 cm graft was applied to the left heel full-thickness ulceration with 100% use. Seventh application. The graft site was free and clear of any infection. The wound/skin graft substitute was dressed with nonadherent bandage secured in place with Steri-Strips followed by bolster dressing as well as a single layer Tubigrip. Post-Debridement Measurements and Additional Note: Post-Debridement Measurements/Treatment - Nurse 1 - General Ulcer Assessment Start: 06/04/23 11:28 Freq: Status: Active Protocol: GE Activity Type Activity Date Activity User E-sign Co-sign Detail Recorded Client Recorded Date Recorded By Document 06/04/23 11:30 DL Desktop 06/04/23 11:37 DL Document 06/11/23 11:37 DL Desktop 06/11/23 11:48 DL 06/04/23 06/11/23 11:30 11:37 - Today's Visit Information Type of service Follow-up Visit Follow-up Visit (Physician/SPOUT LINER (Physician/SPOUT LINER ) ) Arrival Mode Ambulatory, Ambulatory, Walker Walker Transfer Assistance None None Patient Identification Verified (Name & Yes Yes ) Patient Requires Transmission-Based No Precautions Vital Signs Temperature (97.8 F-99.1 F) 97 F L 97.1 F L Temperature Source Temporal Temporal Pulse Rate (60-100) 74 71 Pulse Location Monitor Respiratory Rate (12-18) 18 18 Respiratory rate source Observation Observation Blood Pressure (90/60-120/80) 140/62 H 139/62 H Blood Pressure Mean (mm Hg) 88 87 Source Monitor Monitor History Since Last Visit- (Skip if this is Patient's initial visit) Have you changed medications since your No No last visit? Any new allergies or adverse reactions No No Had a fall/change in ADL's that may No No increase risk of falls Signs or symptoms of abuse and/or No No neglect since last visit Have you been in the hospital since your No No last visit? Has dressing in place as prescribed Yes Yes Has compression in place as prescribed N/A Yes Has offloadiing in place as prescribed Yes N/A Experienced any changes in pain level or No No management Left Footwear Slipper Right Footwear Slipper Pain Scale: 0-10 Numeric Is Patient Pain Free? Yes Yes WC - Nurse 1 - General Ulcer Measurement Start: 06/04/23 11:28 Freq: Status: Active Protocol: Activity Type Activity Date Activity User E-sign Co-sign Detail Recorded Client Recorded Date Recorded By Document 06/04/23 11:30 DL Desktop 06/04/23 11:37 DL Document 06/11/23 11:37 DL Desktop 06/11/23 11:48 DL 06/04/23 06/11/23 11:30 11:37 Wound Center Nurse 1 #5 R Hodgson, Inf -Current Size (cm) - Length 1.4 -Current Size (cm) - Width 0.6 -Current Size (cm) - Depth 0.2 -Total Square Cm 0.84 -Photo Taken Yes -Exudate Amt Small -Wound Margin Distinct, Outline Attached -Granulation Amt Large (67-100%) -Granulation Quality Red -Necrosis Amt Small (1-33%) -Necrotic Tissue Type Adherent Slough -Structure Exposed N/A -Texture (Adelina-wound Skin Appearance) Scarring -Moisture (Adelina-wound Skin Appearance) Dry/Scaly -Color (Adelina-wound Skin Appearance) Hemosiderin Staining -Temperature (Adelina-wound Skin No Abnormality Appearance) (Pt Warm) -Tenderness on Palpation (Adelina-wound No Skin Appearance) -Ulcer Cleansing Soap and Water -Foul Odor after Cleansing No -Anesthetic Used 5% Lidocaine Gel #4 R Med LE/ Trauma -Current Size (cm) - Length 5.6 -Current Size (cm) - Width 3.5 -Current Size (cm) - Depth 0.4 -Total Square Cm 19.60 -Photo Taken Yes -Undermining/Tunneling Starts (O'clock 1 ) -Undermining/Tunneling Ends (O'clock) 3 -Maximum Distance (cm) 0.9 -Exudate Amt Medium -Exudate Type Serosanguineous -Wound Margin Distinct, Outline Attached -Granulation Amt None Present (0 %) -Necrosis Amt Medium (34-66%) -Necrotic Tissue Type Adherent Slough -Structure Exposed N/A -Texture (Adelina-wound Skin Appearance) Localized Edema ,Scarring -Moisture (Adelina-wound Skin Appearance) Dry/Scaly -Color (Adelina-wound Skin Appearance) Erythema, Hemosiderin Staining -Temperature (Adelina-wound Skin No Abnormality Appearance) (Pt Warm) -Ulcer Cleansing Soap and Water -Foul Odor after Cleansing No -Anesthetic Used 5% Lidocaine Gel #3 R Hodgson -Current Size (cm) - Length 4.2 4.4 -Current Size (cm) - Width 1.9 1 -Current Size (cm) - Depth 0.2 0.1 -Total Square Cm 7.98 4.4 -Photo Taken Yes -Classification - Thickness Full Thickness without Exposed Support Structure -Exudate Amt Medium Medium -Exudate Type Serosanguineous Serosanguineous -Wound Margin Distinct, Distinct, Outline Outline Attached Attached -Granulation Amt Medium (34-66%) None Present (0 %) -Granulation Quality Red -Necrosis Amt Medium (34-66%) Large (67-100%) -Necrotic Tissue Type Adherent Slough Adherent Slough -Structure Exposed N/A N/A -Texture (Adelina-wound Skin Appearance) Scarring Scarring -Moisture (Adelina-wound Skin Appearance) Dry/Scaly Dry/Scaly -Color (Adelina-wound Skin Appearance) Hemosiderin Hemosiderin Staining Staining -Temperature (Adelina-wound Skin No Abnormality No Abnormality Appearance) (Pt Warm) (Pt Warm) -Tenderness on Palpation (Adelina-wound No Skin Appearance) -Ulcer Cleansing Soap and Water Soap and Water -Foul Odor after Cleansing No No -Anesthetic Used 5% Lidocaine 5% Lidocaine Gel Gel #2 L Heel -Current Size (cm) - Length 1.8 1.4 -Current Size (cm) - Width 1.7 0.5 -Current Size (cm) - Depth 0.1 0.1 -Total Square Cm 3.06 0.70 -Exudate Amt Medium Medium -Exudate Type Serosanguineous Serosanguineous -Wound Margin Distinct, Distinct, Outline Outline Attached Attached -Granulation Amt Small (1-33%) Medium (34-66%) -Granulation Quality Pale -Necrosis Amt Large (67-100%) Medium (34-66%) -Necrotic Tissue Type Adherent Slough Adherent Slough -Structure Exposed N/A N/A -Texture (Adelina-wound Skin Appearance) Scarring Callus,Scarring -Moisture (Adelina-wound Skin Appearance) Dry/Scaly -Color (Adelina-wound Skin Appearance) Hemosiderin Hemosiderin Staining Staining -Temperature (Adelina-wound Skin No Abnormality No Abnormality Appearance) (Pt Warm) (Pt Warm) -Ulcer Cleansing Soap and Water Soap and Water -Foul Odor after Cleansing No -Anesthetic Used 5% Lidocaine 5% Lidocaine Gel Gel,Cetacaine Right Calf (cm) 33.6 Right Ankle (cm) 20.8 Left Calf (cm) 34.2 Left Ankle (cm) 19.5 WC - Nurse 2 - General Ulcer CM Notes Start: 06/04/23 11:28 Freq: Status: Active Protocol: Activity Type Activity Date Activity User E-sign Co-sign Detail Recorded Client Recorded Date Recorded By Document 06/04/23 12:09 Laptop 06/04/23 12:16 Document 06/11/23 11:54 Desktop 06/11/23 12:07 06/04/23 06/11/23 12:09 11:54 Wound Center Nurse 2 #5 R Bolivar, Inf -Time 11:57 -Correct Patient Yes -Correct Side, Site, Position Yes -Correct Procedure Yes -Procedure Performed Yes -Type of Procedure Debridement -Clinical Debridement Subcutaneous -Tissue Removed Subcutaneous -Post Debridement (cm) - Length 2.0 -Post Debridement (cm) - Width 0.5 -Post Debridement (cm) - Depth 0.1 -Total Square (Post) (cm) 1.00 -Area of Debridement (cm) - Length 2.0 -Area of Debridement (cm) - Width 0.5 -Total Square (Area) (cm) 1.00 -Tunneling No -Undermining/Tunneling No -Circular Undermining No -Wound/Ulcer Outcome Not Healed -Ulcer Cleansing Rinsed/ Irrigated with Saline -Foul Odor after Cleansing No -Bioengineered Tissue No -Bleeding Controlled with Pressure -Treatment Response Procedure Tolerated Well -Offloading No -Debridement - Subq, 1st 20sq cm Yes #4 R Med LE/ Trauma -Time 11:57 -Correct Patient Yes -Correct Side, Site, Position Yes -Correct Procedure Yes -Procedure Performed Yes -Type of Procedure Debridement -Clinical Debridement Muscle / Fascia -Tissue Removed Muscle,Fascia -Post Debridement (cm) - Length 5.0 -Post Debridement (cm) - Width 1.2 -Post Debridement (cm) - Depth 1.5 -Total Square (Post) (cm) 6.00 -Area of Debridement (cm) - Length 5.0 -Area of Debridement (cm) - Width 1.2 -Total Square (Area) (cm) 6.00 -Tunneling No -Undermining/Tunneling No -Circular Undermining No -Wound/Ulcer Outcome Not Healed -Ulcer Cleansing Rinsed/ Irrigated with Saline -Foul Odor after Cleansing No -Bioengineered Tissue No -Bleeding Controlled with Pressure -Treatment Response Procedure Tolerated Well -Offloading No -Debridement - Subq, 1st 20sq cm No -Debridement - Muscle / Fascia, 1st Yes 20sq cm #3 R Hodgson -Time 12:10 11:57 -Correct Patient Yes Yes -Correct Side, Site, Position Yes Yes -Correct Procedure Yes Yes -Procedure Performed Yes Yes -Type of Procedure Debridement Debridement -Clinical Debridement Subcutaneous Subcutaneous -Tissue Removed Subcutaneous Subcutaneous -Post Debridement (cm) - Length 4.5 4.5 -Post Debridement (cm) - Width 1.5 1.0 -Post Debridement (cm) - Depth 0.2 0.1 -Total Square (Post) (cm) 6.75 4.50 -Area of Debridement (cm) - Length 4.5 4.5 -Area of Debridement (cm) - Width 1.5 1.0 -Total Square (Area) (cm) 6.75 4.50 -Tunneling No No -Undermining/Tunneling No No -Circular Undermining No No -Wound/Ulcer Outcome Not Healed Not Healed -Ulcer Cleansing Rinsed/ Rinsed/ Irrigated with Irrigated with Saline Saline -Foul Odor after Cleansing No No -Bioengineered Tissue No No -Bleeding Controlled with Pressure Pressure -Treatment Response Procedure Procedure Tolerated Well Tolerated Well -Offloading No -Debridement - Subq, 1st 20sq cm Yes No #2 L Heel -Time 12:14 11:58 -Correct Patient Yes Yes -Correct Side, Site, Position Yes Yes -Correct Procedure Yes Yes -Procedure Performed Yes Yes -Type of Procedure Debridement Debridement -Clinical Debridement Subcutaneous Subcutaneous -Tissue Removed Subcutaneous Subcutaneous -Post Debridement (cm) - Length 1 0.8 -Post Debridement (cm) - Width 1.9 2.0 -Post Debridement (cm) - Depth 0.1 0.1 -Total Square (Post) (cm) 1.9 1.60 -Area of Debridement (cm) - Length 1 0.8 -Area of Debridement (cm) - Width 1.9 2.0 -Total Square (Area) (cm) 1.9 1.60 -Tunneling No No -Undermining/Tunneling No No -Circular Undermining No No -Wound/Ulcer Outcome Not Healed Not Healed -Ulcer Cleansing Rinsed/ Rinsed/ Irrigated with Irrigated with Saline Saline -Foul Odor after Cleansing No No -Bioengineered Tissue Yes Yes -Type of Bioengineered Tissue Epifix Epifix -Expiration Date 02/29/28 12/29/27 -Product Lot Number [id number] -Percent Used 100 100 -Lot number of Saline Used [id number] -Bleeding Controlled with Pressure Pressure -Treatment Response Procedure Procedure Tolerated Well Tolerated Well -Offloading No No -Type of Offloading Surgical Shoe -Assistive Device(s) Walker -Debridement - Subq, 1st 20sq cm No No -Apply Skin Sub - 1st 25 sq cm - Feet 1 1 -Epifix (per sq cm) 4 4 Pain Scale: 0-10 Numeric Is Patient Pain Free? Yes Yes - Nurse 3 - General Ulcer D/C NN Start: 06/04/23 11:28 Freq: Status: Active Protocol: Activity Type Activity Date Activity User E-sign Co-sign Detail Recorded Client Recorded Date Recorded By Document 06/04/23 11:57 KW Desktop 06/04/23 11:59 KW Document 06/11/23 12:10 Desktop 06/11/23 12:12 06/04/23 06/11/23 11:57 12:10 Wound Care Center Nurse 3 #5 R Hodgson, Inf -Ulcer Cleansing Rinsed/ Irrigated with Saline -Foul Odor after Cleansing No -Primary Dressing Applied C Hydrogel ($) -Primary Dressing Covered/Secured with Dry Gauze & Roll Gauze, Secured with Tape #4 R Med LE/ Trauma -Ulcer Cleansing Rinsed/ Irrigated with Saline -Foul Odor after Cleansing No -Other Dressing betadine -Primary Dressing Covered/Secured with Dry Gauze & Roll Gauze, Secured with Tape #3 R Hodgson -Other Dressing SANTYL -Primary Dressing Covered/Secured with Dry Gauze & Dry Gauze,Dry Roll Gauze, Gauze & Roll Secured with Gauze,Secured Tape with Tape #2 L Heel -Ulcer Cleansing Rinsed/ Irrigated with Saline -Foul Odor after Cleansing No -Primary Dressing Covered/Secured with Dry Gauze & Dry Gauze & Roll Gauze, Roll Gauze, Secured with Secured with Tape Tape BLE -Tubular Bandage Single Layer Single Layer -Size of Tubigrip Used Size E Size E -Size E ($) 2 2 Pain Scale: 0-10 Numeric Is Patient Pain Free? 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 All findings were discussed with the patient. All questions were answered to the patient satisfaction. Excisional debridement with Misonix down to and including subcutaneous tissue to the right anterior leg ulceration without incident. Predebridement measurement is 4.0 x 1.0 x 0.1 cm. Post right measurement is 4.5 x 1.0 x 0.1 cm. Excisional debridement with Misonix down to and including subcutaneous tissue to the right inferior leg ulceration without incident. Predebridement measurement is 1.8 x 0.4 x 0.1 cm. Post right measurement is 2.0 x 0.5 x 0.1 cm. Excisional debridement with Misonix down to and including subcutaneous tissue, fascia and muscle to the right proximal medial leg ulceration without incident. Predebridement measurement is 4.8 x 1.0 x 0.3 cm. Post right measurement is 5.0 x 1.2 x 0.5 cm. Excisional debridement with Misonix down to and including subcutaneous tissue to the left heel without incident. Predebridement measurement is 0.7 x 0.6 x 0.1 cm. Postdebridement measurement is 0.8 x 2.0 x 0.1 cm. EpiFix 2.0 x 2.0 cm graft was applied to the left heel full-thickness ulceration with 100% use. Seventh application. The graft site was free and clear of any infection. The wound/skin graft substitute was dressed with nonadherent bandage secured in place with Steri-Strips followed by bolster dressing as well as a single layer Tubigrip. The right lower extremity was dressed to the central and inferior ulcerations Santyl wet-to-dry, the proximal right medial leg wound was dressed with Betadine wet-to-dry, dry sterile dressing and a single Tubigrip was done to the left lower extremity. The left heel was dressed as stated above. The patient will continue to have home health care for dressing changes and evaluation. The patient will continue to take his oral antibiotics as written. Educated the patient that if his wound is not better in approximately 1 week to the proximal medial aspect of the right leg I recommend the patient to be admitted to the hospital under medicine for workup and medical clearance so that I may take the patient to the operating room to remove the possible necrotic skin to the right proximal leg apply graft as well as a wound VAC and get the patient pre-CERT for SNF secondary to living alone. The patient was understanding of this. Follow-up in 1 week. (2) Laceration of right lower extremity: CODE(S): S81.811A - Laceration without foreign body, right lower leg, initial encounter (3) Non-pressure chronic ulcer of unspecified part of right lower leg with fat layer exposed: CODE(S): L97.912 - Non-pressure chronic ulcer of unspecified part of right lower leg with fat layer exposed (4) Non-pressure 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: CODE(S): L97.422 - Non-pressure 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 (5) Edema: CODE(S): R60.9 - Edema, unspecified (6) Cellulitis of right leg: CODE(S): L03.115 - Cellulitis of right lower limb
[2023-06-18 13:53] VITALS: BP 135/66; PULSE 58; RESP 20
--- NOTE | 2023-06-18 14:40 | PN.PCM_ITS ---
History of Present Illness Date of Service: 06/18/23 Chief Complaint: Left foot ulcerations History of Wound: Chronic wounds left foot self treatment as well as SNF treatment Subjective Subjective Mr. Arreola is a 82-year-old male presenting to the wound care center today for follow-up and evaluation of bilateral leg ulceration. Patient states she has been seen by home health care for dressing changes. Patient states that he did fall in his kitchen when he turned quickly and looked up losing his balance. Patient did not lose consciousness but states he may have hit his face as he has a bruise on his face. He denies seeing any black spots or scars. He denies being unconscious. He did not come to the emergency room for treatment. Patient is currently living alone and does not have family in the area. When questioned today in office and asked if he needs to go to the emergency room the patient declined. He states that he is okay but understands that if it does happen again he will present to the emergency room for admission for neurological evaluation and consultation for Dr. Sampson to evaluate his ulcerations in the operating room. He denies any constitutional symptoms. No other pedal complaints at this time. Objective Data Objective Data Vital Signs: Vital Signs Temp Pulse Resp BP O2 Del Method 97.1 F L 58 L 20 H 135/66 H Room Air 06/11/23 11:37 06/18/23 13:53 06/18/23 13:53 06/18/23 13:53 06/18/23 13:53 Oxygen Delivery Method Room Air Lab / Micro Data Micro: Microbiology 06/04/23 11:49 Wound - Leg, Right Gram Stain - Final 06/04/23 11:49 Wound - Leg, Right Wound Culture - Final Klebsiella pneumoniae sp pneum Meth. resistant Staph. aureus Corynebacterium striatum Pseudomonas aeruginosa 06/04/23 11:49 Wound - Leg, Right Anaerobic Culture - Final No anaerobic bacteria isolated. Physical Exam Narrative Vascular: DP and PT pulses are faintly palpable. CFT is delayed. Evidence of hemosiderin deposits appreciated bilateral lower extremity. Skin temperature great is warm to warm from proximal ankle to distal digit. Nonpitting edema appreciated to the right lower extremity. No focal increase noted. Neurological: Light touch intact. Epic or station is diminished. Patient does not respond to painful stimuli. Dermatological: Full-thickness ulceration appreciated to the left heel with fibrogranular tissue. Wound measures after debridement 0.7 x 2.0 x 0.1 cm. Evidence of full-thickness ulceration secondary to laceration to anterior aspect of the right leg. Right leg central ulceration measures 4.5 x 1.5 x 0.2 cm, inferior ulceration measures 0.3 x 0.9 x 0.2 cm, proximal medial leg measures 5. 0 x 2.0 x 0.4 cm. No evidence of probe to bone however there are new proximal medial right leg wound probes to muscle. Evidence of blanchable erythema to the right leg. Excisional debridement with 5 mm dermal curette down to and including subcutaneous tissue to the right anterior leg ulceration without incident. Predebridement measurement is 4.3 x 1.3 x 0.1 cm. Post right measurement is 4.5 x 1.5 x 0.2 cm. Excisional debridement with 5 mm dermal curette down to and including subcutaneous tissue to the right inferior leg ulceration without incident. Predebridement measurement is 1.0 x 0.6 x 0.1 cm. Post right measurement is 1.3 x 0.9 x 0.2 cm. Excisional debridement with 5 mm dermal curette down to and including subcutaneous tissue, fascia and muscle to the right proximal medial leg ulceration without incident. Predebridement measurement is 4.8 x 1.5 x 0.3 cm. Post right measurement is 5.0 x 2.0 x 0.4 cm. Excisional debridement with 5 mm dermal curette down to and including subcutaneous tissue to the left heel without incident. Predebridement measurement is 0.6 x 1.8 x 0.1 cm. Postdebridement measurement is 0.7 x 2.0 x 0.1 cm. EpiFix 18 mm graft was applied to the left heel full-thickness ulceration with 100% use. Eighth application. The graft site was free and clear of any infection. The wound/skin graft substitute was dressed with nonadherent bandage secured in place with Steri-Strips followed by bolster dressing as well as a single layer Tubigrip. Musculoskeletal: No pain on palpation or with sharp debridement to both ulcerations to the left foot. No pain with calf compression. Debridement Note Debridement Note Debridement Free Text: Excisional debridement with 5 mm dermal curette down to and including subcutaneous tissue to the right anterior leg ulceration without incident. Predebridement measurement is 4.3 x 1.3 x 0.1 cm. Post right measurement is 4.5 x 1.5 x 0.2 cm. Excisional debridement with 5 mm dermal curette down to and including subcutaneous tissue to the right inferior leg ulceration without incident. Predebridement measurement is 1.0 x 0.6 x 0.1 cm. Post right measurement is 1.3 x 0.9 x 0.2 cm. Excisional debridement with 5 mm dermal curette down to and including subcutaneous tissue, fascia and muscle to the right proximal medial leg ulceration without incident. Predebridement measurement is 4.8 x 1.5 x 0.3 cm. Post right measurement is 5.0 x 2.0 x 0.4 cm. Excisional debridement with 5 mm dermal curette down to and including subcutaneous tissue to the left heel without incident. Predebridement measurement is 0.6 x 1.8 x 0.1 cm. Postdebridement measurement is 0.7 x 2.0 x 0.1 cm. EpiFix 18 mm graft was applied to the left heel full-thickness ulceration with 100% use. Eighth application. The graft site was free and clear of any infection. The wound/skin graft substitute was dressed with nonadherent bandage secured in place with Steri-Strips followed by bolster dressing as well as a single layer Tubigrip. Post-Debridement Measurements and Additional Note: Post-Debridement Measurements/Treatment - Nurse 1 - General Ulcer Assessment Start: 06/04/23 11:28 Freq: Status: Active Protocol: [email or web address] Activity Type Activity Date Activity User E-sign Co-sign Detail Recorded Client Recorded Date Recorded By Document 06/04/23 11:30 DL Desktop 06/04/23 11:37 DL Document 06/11/23 11:37 DL Desktop 06/11/23 11:48 DL Document 06/18/23 13:53 KW Desktop 06/18/23 14:08 KW 06/04/23 06/11/23 06/18/23 11:30 11:37 13:53 - Today's Visit Information Type of service Follow-up Visit Follow-up Visit Follow-up Visit (Physician/INSURANCE CLAIMS ASSISTANT (Physician/INSURANCE CLAIMS ASSISTANT (Physician/INSURANCE CLAIMS ASSISTANT ) ) ) Arrival Mode Ambulatory, Ambulatory, Ambulatory, Walker Walker Walker Transfer Assistance None None Patient Identification Verified (Name & Yes Yes Yes ) Patient Requires Transmission-Based No No Precautions Vital Signs Temperature (97.8 F-99.1 F) 97 F L 97.1 F L Temperature Source Temporal Temporal Pulse Rate (60-100) 74 71 58 L Pulse Location Monitor Monitor Respiratory Rate (12-18) 18 18 20 H Respiratory rate source Observation Observation Observation Oxygen Delivery Method Room Air Blood Pressure (90/60-120/80) 140/62 H 139/62 H 135/66 H Blood Pressure Mean (mm Hg) 88 87 89 Source Monitor Monitor Monitor Position Sitting Blood Pressure Location Left Arm History Since Last Visit- (Skip if this is Patient's initial visit) Have you changed medications since your No No No last visit? Any new allergies or adverse reactions No No No Had a fall/change in ADL's that may No No No increase risk of falls Signs or symptoms of abuse and/or No No No neglect since last visit Have you been in the hospital since your No No No last visit? Has dressing in place as prescribed Yes Yes Yes Has compression in place as prescribed N/A Yes N/A Has offloadiing in place as prescribed Yes N/A N/A Experienced any changes in pain level or No No No management Left Footwear Slipper Regular Shoe Right Footwear Slipper Regular Shoe Pain Scale: 0-10 Numeric Is Patient Pain Free? Yes Yes Yes WC - Nurse 1 - General Ulcer Measurement Start: 06/04/23 11:28 Freq: Status: Active Protocol: Activity Type Activity Date Activity User E-sign Co-sign Detail Recorded Client Recorded Date Recorded By Document 06/04/23 11:30 DL Desktop 06/04/23 11:37 DL Document 06/11/23 11:37 DL Desktop 06/11/23 11:48 DL Document 06/18/23 13:53 KW Desktop 06/18/23 14:08 KW 06/04/23 06/11/23 06/18/23 11:30 11:37 13:53 Wound Center Nurse 1 #5 R Lutz, Inf -Current Size (cm) - Length 1.4 1.2 -Current Size (cm) - Width 0.6 0.6 -Current Size (cm) - Depth 0.2 0.1 -Total Square Cm 0.84 0.72 -Photo Taken Yes -Exudate Amt Small Large -Exudate Type Serosanguineous -Wound Margin Distinct, Distinct, Outline Outline Attached Attached -Granulation Amt Large (67-100%) -Granulation Quality Red -Necrosis Amt Small (1-33%) Large (67-100%) -Necrotic Tissue Type Adherent Slough Adherent Slough -Structure Exposed N/A -Texture (Adelina-wound Skin Appearance) Scarring Assessed -Moisture (Adelina-wound Skin Appearance) Dry/Scaly Assessed -Color (Adelina-wound Skin Appearance) Hemosiderin Assessed Staining -Temperature (Adelina-wound Skin No Abnormality No Abnormality Appearance) (Pt Warm) (Pt Warm) -Tenderness on Palpation (Adelina-wound No Skin Appearance) -Ulcer Cleansing Soap and Water Soap and Water -Foul Odor after Cleansing No No -Anesthetic Used 5% Lidocaine 4% Lidocaine Gel Solution #4 R Med LE/ Trauma -Current Size (cm) - Length 5.6 5.3 -Current Size (cm) - Width 3.5 4.4 -Current Size (cm) - Depth 0.4 0.4 -Total Square Cm 19.60 23.32 -Photo Taken Yes -Undermining/Tunneling Starts (O'clock 1 ) -Undermining/Tunneling Ends (O'clock) 3 -Maximum Distance (cm) 0.9 -Exudate Amt Medium Medium -Exudate Type Serosanguineous Serosanguineous -Wound Margin Distinct, Distinct, Outline Outline Attached Attached -Granulation Amt None Present (0 Medium (34-66%) %) -Granulation Quality Red -Necrosis Amt Medium (34-66%) Medium (34-66%) -Necrotic Tissue Type Adherent Slough Eschar -Structure Exposed N/A -Texture (Adelina-wound Skin Appearance) Localized Edema Assessed ,Scarring -Moisture (Adelina-wound Skin Appearance) Dry/Scaly Assessed -Color (Adelina-wound Skin Appearance) Erythema, Assessed Hemosiderin Staining -Temperature (Adelina-wound Skin No Abnormality No Abnormality Appearance) (Pt Warm) (Pt Warm) -Ulcer Cleansing Soap and Water Soap and Water -Foul Odor after Cleansing No -Anesthetic Used 5% Lidocaine 4% Lidocaine Gel Solution #3 R Lutz -Current Size (cm) - Length 4.2 4.4 4.3 -Current Size (cm) - Width 1.9 1 1.4 -Current Size (cm) - Depth 0.2 0.1 0.3 -Total Square Cm 7.98 4.4 6.02 -Photo Taken Yes -Classification - Thickness Full Thickness without Exposed Support Structure -Exudate Amt Medium Medium Medium -Exudate Type Serosanguineous Serosanguineous Serosanguineous -Wound Margin Distinct, Distinct, Distinct, Outline Outline Outline Attached Attached Attached -Granulation Amt Medium (34-66%) None Present (0 Medium (34-66%) %) -Granulation Quality Red Red -Necrosis Amt Medium (34-66%) Large (67-100%) Small (1-33%) -Necrotic Tissue Type Adherent Slough Adherent Slough Adherent Slough -Structure Exposed N/A N/A -Texture (Adelina-wound Skin Appearance) Scarring Scarring Assessed -Moisture (Adelina-wound Skin Appearance) Dry/Scaly Dry/Scaly Assessed -Color (Adelina-wound Skin Appearance) Hemosiderin Hemosiderin Assessed Staining Staining -Temperature (Adelina-wound Skin No Abnormality No Abnormality Appearance) (Pt Warm) (Pt Warm) -Tenderness on Palpation (Adelina-wound No Skin Appearance) -Ulcer Cleansing Soap and Water Soap and Water Soap and Water -Foul Odor after Cleansing No No -Anesthetic Used 5% Lidocaine 5% Lidocaine 4% Lidocaine Gel Gel Solution #2 L Heel -Current Size (cm) - Length 1.8 1.4 1.4 -Current Size (cm) - Width 1.7 0.5 0.2 -Current Size (cm) - Depth 0.1 0.1 0.1 -Total Square Cm 3.06 0.70 0.28 -Exudate Amt Medium Medium Medium -Exudate Type Serosanguineous Serosanguineous Serosanguineous -Wound Margin Distinct, Distinct, Distinct, Outline Outline Outline Attached Attached Attached -Granulation Amt Small (1-33%) Medium (34-66%) Medium (34-66%) -Granulation Quality Pale [place] -Necrosis Amt Large (67-100%) Medium (34-66%) Small (1-33%) -Necrotic Tissue Type Adherent Slough Adherent Slough Adherent Slough -Structure Exposed N/A N/A -Texture (Adeilna-wound Skin Appearance) Scarring Callus,Scarring Assessed -Moisture (Adelina-wound Skin Appearance) Dry/Scaly Assessed -Color (Adelina-wound Skin Appearance) Hemosiderin Hemosiderin Assessed Staining Staining -Temperature (Adelina-wound Skin No Abnormality No Abnormality Appearance) (Pt Warm) (Pt Warm) -Ulcer Cleansing Soap and Water Soap and Water Soap and Water -Foul Odor after Cleansing No -Anesthetic Used 5% Lidocaine 5% Lidocaine 4% Lidocaine Gel Gel,Cetacaine Solution Right Calf (cm) 33.6 36.5 Right Ankle (cm) 20.8 21.7 Left Calf (cm) 34.2 34.6 Left Ankle (cm) 19.5 21.1 WC - Nurse 2 - General Ulcer CM Notes Start: 06/04/23 11:28 Freq: Status: Active Protocol: Activity Type Activity Date Activity User E-sign Co-sign Detail Recorded Client Recorded Date Recorded By Document 06/04/23 12:09 Laptop 06/04/23 12:16 Document 06/11/23 11:54 Desktop 06/11/23 12:07 Document 06/18/23 14:20 Laptop 06/18/23 14:36 06/04/23 06/11/23 06/18/23 12:09 11:54 14:20 Wound Center Nurse 2 #5 R [place], Inf -Time 11:57 14:23 -Correct Patient Yes Yes -Correct Side, Site, Position Yes Yes -Correct Procedure Yes Yes -Procedure Performed Yes Yes -Type of Procedure Debridement Debridement -Clinical Debridement Subcutaneous Subcutaneous -Tissue Removed Subcutaneous Subcutaneous -Post Debridement (cm) - Length 2.0 1.3 -Post Debridement (cm) - Width 0.5 0.9 -Post Debridement (cm) - Depth 0.1 0.2 -Total Square (Post) (cm) 1.00 1.17 -Area of Debridement (cm) - Length 2.0 1.3 -Area of Debridement (cm) - Width 0.5 0.9 -Total Square (Area) (cm) 1.00 1.17 -Tunneling No No -Undermining/Tunneling No No -Circular Undermining No No -Wound/Ulcer Outcome Not Healed Not Healed -Ulcer Cleansing Rinsed/ Rinsed/ Irrigated with Irrigated with Saline Saline -Foul Odor after Cleansing No No -Bioengineered Tissue No No -Bleeding Controlled with Pressure Pressure -Treatment Response Procedure Procedure Tolerated Well Tolerated Well -Offloading No No -Debridement - Subq, 1st 20sq cm Yes No #4 R Med LE/ Trauma -Time 11:57 14:24 -Correct Patient Yes Yes -Correct Side, Site, Position Yes Yes -Correct Procedure Yes Yes -Procedure Performed Yes Yes -Type of Procedure Debridement Debridement -Clinical Debridement Muscle / Fascia Muscle / Fascia -Tissue Removed Muscle,Fascia Muscle,Fascia -Post Debridement (cm) - Length 5.0 5.0 -Post Debridement (cm) - Width 1.2 2.0 -Post Debridement (cm) - Depth 1.5 0.4 -Total Square (Post) (cm) 6.00 10.00 -Area of Debridement (cm) - Length 5.0 5.0 -Area of Debridement (cm) - Width 1.2 2.0 -Total Square (Area) (cm) 6.00 10.00 -Tunneling No No -Undermining/Tunneling No No -Circular Undermining No No -Wound/Ulcer Outcome Not Healed Not Healed -Ulcer Cleansing Rinsed/ Rinsed/ Irrigated with Irrigated with Saline Saline -Foul Odor after Cleansing No No -Bioengineered Tissue No No -Bleeding Controlled with Pressure Pressure -Treatment Response Procedure Procedure Tolerated Well Tolerated Well -Offloading No No -Debridement - Subq, 1st 20sq cm No -Debridement - Muscle / Fascia, 1st Yes Yes 20sq cm #3 R Lutz -Time 12:10 11:57 14:25 -Correct Patient Yes Yes Yes -Correct Side, Site, Position Yes Yes Yes -Correct Procedure Yes Yes Yes -Procedure Performed Yes Yes Yes -Type of Procedure Debridement Debridement Debridement -Clinical Debridement Subcutaneous Subcutaneous Subcutaneous -Tissue Removed Subcutaneous Subcutaneous Subcutaneous -Post Debridement (cm) - Length 4.5 4.5 4.5 -Post Debridement (cm) - Width 1.5 1.0 1.5 -Post Debridement (cm) - Depth 0.2 0.1 0.2 -Total Square (Post) (cm) 6.75 4.50 6.75 -Area of Debridement (cm) - Length 4.5 4.5 4.5 -Area of Debridement (cm) - Width 1.5 1.0 1.5 -Total Square (Area) (cm) 6.75 4.50 6.75 -Tunneling No No No -Undermining/Tunneling No No No -Circular Undermining No No No -Wound/Ulcer Outcome Not Healed Not Healed Not Healed -Ulcer Cleansing Rinsed/ Rinsed/ Rinsed/ Irrigated with Irrigated with Irrigated with Saline Saline Saline -Foul Odor after Cleansing No No No -Bioengineered Tissue No No No -Bleeding Controlled with Pressure Pressure Pressure -Treatment Response Procedure Procedure Procedure Tolerated Well Tolerated Well Tolerated Well -Offloading No No -Debridement - Subq, 1st 20sq cm Yes No Yes #2 L Heel -Time 12:14 11:58 14:26 -Correct Patient Yes Yes Yes -Correct Side, Site, Position Yes Yes Yes -Correct Procedure Yes Yes Yes -Procedure Performed Yes Yes Yes -Type of Procedure Debridement Debridement Debridement -Clinical Debridement Subcutaneous Subcutaneous Subcutaneous -Tissue Removed Subcutaneous Subcutaneous Subcutaneous -Post Debridement (cm) - Length 1 0.8 2.0 -Post Debridement (cm) - Width 1.9 2.0 0.7 -Post Debridement (cm) - Depth 0.1 0.1 0.1 -Total Square (Post) (cm) 1.9 1.60 1.40 -Area of Debridement (cm) - Length 1 0.8 2.0 -Area of Debridement (cm) - Width 1.9 2.0 0.7 -Total Square (Area) (cm) 1.9 1.60 1.40 -Tunneling No No No -Undermining/Tunneling No No No -Circular Undermining No No No -Wound/Ulcer Outcome Not Healed Not Healed Not Healed -Ulcer Cleansing Rinsed/ Rinsed/ Rinsed/ Irrigated with Irrigated with Irrigated with Saline Saline Saline -Foul Odor after Cleansing No No No -Bioengineered Tissue Yes Yes Yes -Type of Bioengineered Tissue Epifix Epifix Epifix 18mm Disc -Expiration Date 02/29/28 12/29/27 02/29/28 -Product Lot Number [id number] -Percent Used 100 100 100 -Lot number of Saline Used [id number] -Bleeding Controlled with Pressure Pressure Pressure -Treatment Response Procedure Procedure Procedure Tolerated Well Tolerated Well Tolerated Well -Offloading No No No -Type of Offloading Surgical Shoe -Assistive Device(s) Walker -Debridement - Subq, 1st 20sq cm No No No -Apply Skin Sub - 1st 25 sq cm - Feet 1 1 1 -Epifix (per sq cm) 4 4 -Epifix 18mm Disc 3 Pain Scale: 0-10 Numeric Is Patient Pain Free? Yes Yes Yes - Nurse 3 - General Ulcer D/C NN Start: 06/04/23 11:28 Freq: Status: Active Protocol: Activity Type Activity Date Activity User E-sign Co-sign Detail Recorded Client Recorded Date Recorded By Document 06/04/23 11:57 KW Desktop 06/04/23 11:59 Document 06/11/23 12:10 Desktop 06/11/23 12:12 06/04/23 06/11/23 11:57 12:10 Wound Care Center Nurse 3 #5 R Lutz, Inf -Ulcer Cleansing Rinsed/ Irrigated with Saline -Foul Odor after Cleansing No -Primary Dressing Applied C Hydrogel ($) -Primary Dressing Covered/Secured with Dry Gauze & Roll Gauze, Secured with Tape #4 R Med LE/ Trauma -Ulcer Cleansing Rinsed/ Irrigated with Saline -Foul Odor after Cleansing No -Other Dressing betadine -Primary Dressing Covered/Secured with Dry Gauze & Roll Gauze, Secured with Tape #3 R Lutz -Other Dressing SANTYL -Primary Dressing Covered/Secured with Dry Gauze & Dry Gauze,Dry Roll Gauze, Gauze & Roll Secured with Gauze,Secured Tape with Tape #2 L Heel -Ulcer Cleansing Rinsed/ Irrigated with Saline -Foul Odor after Cleansing No -Primary Dressing Covered/Secured with Dry Gauze & Dry Gauze & Roll Gauze, Roll Gauze, Secured with Secured with Tape Tape BLE -Tubular Bandage Single Layer Single Layer -Size of Tubigrip Used Size E Size E -Size E ($) 2 2 Pain Scale: 0-10 Numeric Is Patient Pain Free? 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 All findings were discussed with the patient. All questions were answered to the patient's satisfaction. Excisional debridement with 5 mm dermal curette down to and including subcutaneous tissue to the right anterior leg ulceration without incident. Predebridement measurement is 4.3 x 1.3 x 0.1 cm. Post right measurement is 4.5 x 1.5 x 0.2 cm. Excisional debridement with 5 mm dermal curette down to and including subcutaneous tissue to the right inferior leg ulceration without incident. Predebridement measurement is 1.0 x 0.6 x 0.1 cm. Post right measurement is 1.3 x 0.9 x 0.2 cm. Excisional debridement with 5 mm dermal curette down to and including subcutaneous tissue, fascia and muscle to the right proximal medial leg ulceration without incident. Predebridement measurement is 4.8 x 1.5 x 0.3 cm. Post right measurement is 5.0 x 2.0 x 0.4 cm. Excisional debridement with 5 mm dermal curette down to and including subcutaneous tissue to the left heel without incident. Predebridement measurement is 0.6 x 1.8 x 0.1 cm. Postdebridement measurement is 0.7 x 2.0 x 0.1 cm. EpiFix 18 mm graft was applied to the left heel full-thickness ulceration with 100% use. Eighth application. The graft site was free and clear of any infection. The wound/skin graft substitute was dressed with nonadherent bandage secured in place with Steri-Strips followed by bolster dressing as well as a single layer Tubigrip. The proximal right leg ulceration and skin flap was secured in place with Steri- Strips followed by Betadine soaked gauze, the central and inferior right ulcerat ions were dressed with Santyl and saline wet gauze followed by double layer Tubigrip. The patient will have home care change dressings twice per week. It was overly stressed with the patient understanding, that if he continues to feel unsafe or falls at his house he is to report to the emergency department at [facility] for admission for neurological evaluation and to get Dr. Sampson consulted so that he may take him to the operating room for OR debridement. The patient was understanding of this. At the time of questioning in regards to presenting to the operating room today. The patient declined. Follow-up 1 week (2) Non-pressure chronic ulcer of unspecified part of right lower leg with fat layer exposed: CODE(S): L97.912 - Non-pressure chronic ulcer of unspecified part of right lower leg with fat layer exposed (3) Cellulitis of right leg: CODE(S): L03.115 - Cellulitis of right lower limb PLAN: Continue antibiotics as written. (4) Edema: CODE(S): R60.9 - Edema, unspecified (5) Non-pressure 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: CODE(S): L97.422 - Non-pressure 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
== END 2023-06-29 23:59 | disposition home or self-care (01) ==
LOC: WC 13:30
PROVIDERS: PCP Internal Medicine; Referring Provider Internal Medicine; Visit Provider Podiatrist Foot & Ankle Surgery
DX: I73.9 Peripheral vascular disease, unspecified (principal); L97.422 Non-pressure chronic ulcer of left heel and midfoot with fat layer exposed; L97.819 Non-pressure chronic ulcer of other part of right lower leg with unspecified severity; R60.9 Edema, unspecified; L03.115 Cellulitis of right lower limb
CPT/HCPCS: 11042; 11043; 15275; 87070; 87075; 87077; 87186; 87205; Q4186

== ENCOUNTER 2023-06-20 00:42 | Inpatient (IN) | payer MEDICARE, OTHER, SELFPAY ==
[2023-06-20] VITALS (12 sets, daily range): BP systolic 91–144; BP diastolic 45–95; PULSE 42–63; RESP 12–20; TEMP 35.8–37; O2SAT 86–99; BMI 27.4; BMI 26.9
--- NOTE | 2023-06-20 00:56 | EX.ED.DYSGE1 ---
HPI History of Present Illness Chief Complaint: Palpitations Informant: patient Onset/Context/Timing Onset: Days (3) Context: Gradual Onset Timing: Intermittent Quality: Shaking Location: Bilateral thighs and lower legs Worsened by: Nothing Relieved by: Oxygen Narrative Narrative: Patient presents with palpitations that have been intermittent over the last 3 days. Patient states that he woke up tonight and felt shaking in his thighs and legs. Patient states it seemed to get better when EMS applied oxygen. Patient states it seemed to return when they remove the oxygen. Patient admits to some shortness of breath. Patient denies any chest pain. Patient denies any nausea or vomiting. Patient denies any diaphoresis. Patient states he does have a history of atrial fibrillation. [facility] Medical History Alcohol use Atherosclerotic heart disease of [place] coronary artery without angina pectoris Atrial fibrillation and flutter Cardiology follow-up encounter Carotid artery stenosis Dietary restriction Elevated troponin Emphysema of lung Essential hypertension Fever Former smoker Hematemesis/vomiting blood High cholesterol History of atrial fibrillation History of cardioversion (~05/09/20) History of coronary artery disease History of echocardiogram History of edema History of GI bleed History of right inguinal hernia History of stress test History of transesophageal echocardiography (ROSI) History of umbilical hernia Hx of ulcerative colitis Hypercholesterolemia Hyperlipidemia Hypertension Injury of head and neck [employer] (current) use 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 Mitral valve insufficiency PAD (peripheral artery disease) Premature atrial contractions Right carotid bruit Subclavian artery stenosis, left (~10/15/19) Thrombocytopenia Thrombocytopenia Thyroid disease Ulcerative colitis Upper GI bleed Upper GI bleed Walker as ambulation aid Wears glasses Wears hearing aid Home Medications ferrous sulfate 325 mg (65 mg iron) tablet 325 mg PO DAILY vitamin 05/28/15 [History Last Taken 05/09/20] vitamin B complex 1 each PO DAILY vitamin 02/07/16 [History Last Taken 05/09/20] levothyroxine 50 mcg tablet 75 mcg PO DAILY thyroid 06/13/20 [History Last Taken Unknown] acetaminophen 500 mg tablet 1,000 mg (2 x 500 mg) PO Q6H PRN PRN Pain Score 1-5 #0 tabs 12/19/22 [Rx Last Taken Unknown] aspirin 81 mg tablet,delayed release 81 mg PO DAILY 04/14/23 [History Last Taken Unknown] atorvastatin 40 mg tablet (Lipitor) 40 mg PO DAILY cholesterol #90 tabs 04/14/23 [Rx Last Taken Unknown] balsalazide 750 mg capsule (Colazal) 2,250 mg PO BID 04/14/23 [History Last Taken Unknown] hydralazine 50 mg tablet 50 mg PO BID 04/14/23 [History Last Taken Unknown] amiodarone 200 mg tablet See Rx Instructions .Route .COMPLEX #90 TABLETS 05/09/23 [Rx Last Taken Unknown] amlodipine 10 mg tablet 10 mg PO DAILY #90 tabs 05/20/23 [Rx Last Taken Unknown] carvedilol 3.125 mg tablet 3.125 mg PO BID heart #180 tabs 05/21/23 [Rx Last Taken Unknown] lisinopril 20 mg tablet 20 mg PO DAILY #90 tabs 05/21/23 [Rx Last Taken Unknown] ciprofloxacin HCl 750 mg tablet 750 mg PO BID 2 weeks #28 tabs 06/09/23 [Rx Last Taken Unknown] doxycycline hyclate 100 mg capsule 100 mg PO BID 2 weeks #28 caps 06/09/23 [Rx Last Taken Unknown] Allergy/AdvReac Type Severity Reaction Status Date / Time hydrochlorothiazide Allergy Severe Rash Verified 06/20/23 00:46 furosemide [From Lasix] Allergy Severe Verified 06/20/23 00:46 Rash Itchy lovastatin [From Mevacor] Allergy Rash Verified 06/20/23 00:46 Family History Father CAD (coronary artery disease) Mother Cancer breast Surgical History Aortocoronary bypass status (~02/12/17) History of cardiac catheterization History of hand surgery History of right inguinal hernia repair History of umbilical hernia repair History of vasectomy Hx of CABG Hx of colonoscopy Hx of esophagogastroduodenoscopy Hx of heart bypass surgery S/P right inguinal hernia repair S/P umbilical hernia repair, follow-up exam Status post insertion of drug-eluting stent into right coronary artery for coronary artery disease (~04/2009) Social History adopted: No household members: spouse housing: house number of children: 2 current occupational status: retired Smoking Status: Former smoker Tobacco: How many years used: 50 (stopped about 10 yrs ago) how long ago did patient quit smokin years ago alcohol intake: current alcohol intake frequency: 3 or more drinks per day Alcohol type: beer, wine and hard liquor substance use type: does not use caffeine: Yes Type: coffee Number of servings: 2 ROS ROS ED Constitutional Constitutional ED: Denies chills or fever(s) Eyes Eyes: Denies blurry vision or change in vision ENT ENT ED: Denies rhinorrhea or sore throat Cardiovascular Cardiovascular: Reports palpitations; Denies chest pain Respiratory/Chest Respiratory/Chest: Reports dyspnea; Denies cough Gastrointestinal Gastrointestinal: Denies nausea or vomiting Genitourinary Genitourinary ED: Denies dysuria or hematuria Musculoskeletal Musculoskeletal: Denies back pain or neck pain Integumentary Denies abscess or rash Neurologic Neurologic: Denies headache(s) or weakness Allergic/Immunologic Allergic/Immunologic ED: Denies mouth swelling or urticaria EXAM Physical Exam Const Vital Signs: 06/20/23 00:43 06/20/23 00:42 06/20/23 00:47 Temperature 96.5 F L Temperature Source Temporal Pulse Rate 60 61 Respiratory Rate 20 H 17 Respiratory Effort Short of Breath Respiratory Pattern Blood Pressure 144/59 H 144/59 H Blood Pressure Mean 87 87 Pulse Ox 95 98 Oxygen Delivery Method Room Air Room Air 06/20/23 01:06 06/20/23 02:08 06/20/23 02:47 Temperature Temperature Source Pulse Rate 55 L 59 L Respiratory Rate 20 H 17 Respiratory Effort Respiratory Pattern Normal Blood Pressure 115/58 L Blood Pressure Mean 77 Pulse Ox 98 93 Oxygen Delivery Method Room Air Room Air 06/20/23 05:44 Temperature Temperature Source Pulse Rate 42 L Respiratory Rate 16 Respiratory Effort Respiratory Pattern Blood Pressure 91/45 L Blood Pressure Mean 60 Pulse Ox 86 Oxygen Delivery Method Room Air Positive well nourished and well developed General Appearance ED: well developed and NAD HEENT Reports moist mucous membranes Neck supple and no JVD Resp normal respiratory effort and clear to auscultation bilaterally Cardio regular rate and regular rhythm GI non-tender and non-distended Palpation: soft Extremity General Extremety ED: Negative for edema General Extremity: Negative for edema Neuro oriented x3, CN's II-XII intact bilaterally and no sensory deficits noted Sensorium / Orientation: alert Motor Exam: strength 5/5 throughout Psych mental status grossly normal MDM MDM MDM Narrative Medical decision making narrative: Differential diagnosis includes cardiac dysrhythmia, cardiac ischemia, electrolyte abnormality, pneumonia, pneumothorax, GERD, and anxiety. EKG will be obtained to assess for cardiac dysrhythmia and cardiac ischemia. Chest x-ray will be obtained to assess for pneumonia and pneumothorax. CBC will be obtained to assess for leukocytosis and anemia. Basic metabolic profile will be obtained to assess for electrolyte abnormality and renal function. High-sensitivity troponin will be obtained to assess for cardiac ischemia. Patient has a Wells score of 0. I do not feel this is from a pulmonary embolism. Lab Data Attestation: I reviewed the patient's lab results. Lab results narrative: CBC was reviewed. White blood cell count was slightly low at 3.7. Hemoglobin was 7.8 and hematocrit 25.3. These are consistent with prior results. Platelets were slightly low at 97. Basic metabolic profile was reviewed. Potassium was elevated at 5.7. Chloride was elevated at 119. BUN was 47 and creatinine was 2.5. These are consistent with prior results. High-sensitivity troponin was reviewed and was normal at 44. Labs: Laboratory Results - last 24 hr 06/20/23 06/20/23 06/20/23 01:18 05:37 06:04 WBC 3.7 L RBC 2.24 L Hgb 7.8 L Hct 25.3 L MCV 112.9 H MCH 34.8 H MCHC 30.8 L RDW Std Deviation 81.2 H RDW Coeff of Chanel 19.5 H Plt Count 97 L MPV 10.7 Immature Gran % (Auto) 0.300 Neut % (Auto) 73.4 H Lymph % (Auto) 13.3 L [place] % (Auto) 10.9 H Eos % (Auto) 1.6 Baso % (Auto) 0.5 Absolute Neuts (auto) 2.7 Absolute Lymphs (auto) 0.49 L Nucleated RBC % 0 Differential Comment SCANNED Diff Path Review May foll Platelet Estimate MOD DEC Anisocytosis 2+ Sodium 145 Potassium 5.7 H Chloride 119 H Carbon Dioxide 21.0 Anion Gap 5 BUN 47 H Creatinine 2.50 H Estim Creat Clear Calc 23.93 Est GFR (MDRD) Af Amer 32 L Est GFR (MDRD) Non-Af 26 L BUN/Creatinine Ratio 18.8 Glucose 84 Calcium 8.9 Troponin I High Sens 44 POC Glucose 40 L* 135 H Radiography Diagnostic Testing: Clinical Impression(s) from Imaging Studies Chest X-Ray 06/20/23 01:20 IMPRESSION: Nonspecific mediastinal left lower lung retrocardiac opacity which could represent atelectasis or airspace disease or overlapping shadows. Consider PA and lateral chest radiograph. Cardiomegaly with mild interstitial edema and small right effusion. Trace left effusion. Atelectasis or fluid along the right minor fissure. Electronically Signed: Cam Benson MD at 1:51 EST , Portable chest x-ray was obtained. There is 1 view. On my independent interpretation, there is a left lower lobe retrocardiac atelectasis there is mild interstitial edema and small right effusion. There is a trace left effusion. Radiologist also interpreted the x-ray and agrees. EKG Initial EKG: Attestation: I personally reviewed and interpreted this EKG as follows: Interpretation: Sinus Rhythm (60) and Non-Specific ST Changes Comments: EKG was obtained. On my independent interpretation, it showed a sinus rhythm with first-degree AV block with a rate of 60. NH interval was prolonged at 290 ms. QRS of was normal at 118 ms. QTc interval was 482 ms. There is left axis deviation at -27. There are nonspecific ST-T wave changes. Prior EKG tracings: available for review Prior: Unchanged (01/04/2023) Follow-up EKG: Attestation: I personally reviewed and interpreted this EKG as follows: Interpretation: Sinus Bradycardia (With a first-degree AV block with a rate of 41) and Non-Specific ST Changes Comments: EKG was obtained. On my independent interpretation, it showed sinus bradycardia with first-degree AV block with a rate of 41. NH interval was prolonged at 326 ms. QRS interval was normal at 120 ms. QTc interval was normal at 478 ms. [place] is borderline left axis deviation at -16. There are nonspecific ST-T wave changes. This was unchanged compared to previous EKG. Prior EKG tracings: available for review Prior: Unchanged Treatment and Re-Evaluation :: Patient was advised of his findings. Patient was given albuterol aerosol. Patient was given calcium gluconate, dextrose, and insulin for the hyperkalemia. Patient states his palpitations have resolved. Patient feels better. Patient tried to get up to go to the bathroom and felt lightheaded. BGT was obtained at that time and was 40. Patient was given another amp of dextrose. Patient's heart rate dropped into the 40s. Patient was noted to be sinus bradycardia on the monitor. Patient's blood pressure went down to 91/45. Patient states he is feeling clammy. Patient was given some more IV fluids. Patient states blood pressure improved after this. Case will be discussed with the hospitalist for admission. Case was discussed with the hospitalist. He will admit the patient to PCU. He recommended giving the patient another liter of IV fluids. This was ordered. Patient's blood pressure improved to 125/59. Patient understood and was agreeable with the plan. All questions were answered. Discharge Plan Triage Chief Complaint: Palpitations ED Provider: Jakob Nowak Dx/Rx/DC Orders Clinical Impression: Debility, Palpitations, Hyperkalemia, General weakness Prescriptions: No Action aspirin 81 mg tablet,delayed release (DR/EC) 81 mg PO DAILY balsalazide [Colazal] 750 mg capsule 2,250 mg PO BID hydralazine 50 mg tablet 50 mg PO BID ferrous sulfate 325 MG tablet 325 mg PO DAILY Patient Comments: Iron supplement vitamin B complex 1 EACH capsule 1 each PO DAILY Patient Comments: Vitamin supplement acetaminophen 500 mg Tablet 1,000 mg PO Q6H PRN PRN (Reason: Pain Score 1-5) Qty: 0 0RF doxycycline hyclate 100 mg capsule 100 mg PO BID 14 Days Qty: 28 0RF ciprofloxacin HCl 750 mg tablet 750 mg PO BID 14 Days Qty: 28 0RF levothyroxine 50 mcg tablet 75 mcg PO DAILY atorvastatin [Lipitor] 40 mg tablet 40 mg PO DAILY Qty: 90 3RF amiodarone 200 mg tablet See Rx Instructions .ROUTE .COMPLEX Qty: 90 3RF Dose Instruction: TAKE 1 TABLET BY MOUTH DAILY FOR AFIB/FLUTTER Rx Instructions: TAKE 1 TABLET BY MOUTH DAILY FOR AFIB/FLUTTER amlodipine 10 mg tablet 10 mg PO DAILY Qty: 90 3RF carvedilol 3.125 mg tablet 3.125 mg PO BID Qty: 180 0RF lisinopril 20 mg tablet 20 mg PO DAILY Qty: 90 3RF Primary Care Provider: Rosa Maria Santacruz Referrals: Rosa Maria Santacruz MD [Primary Care Provider] - 3-5 Days Disposition Disposition: Acute Care Hospital [facility]
--- NOTE | 2023-06-20 01:06 | EKG12_ITS ---
Test Reason : SOB Blood Pressure : / mmHG Vent. Rate : 060 BPM Atrial Rate : 119 BPM P-R Int : 290 ms QRS Dur : 118 ms QT Int : 482 ms P-R-T Axes : 139 -27 028 degrees QTc Int : 482 ms SINUS RHYTHM WITH FIRST DEGREE AV BLOCK Septal infarct , age undetermined Abnormal ECG Confirmed by RUBÉN WATSON, ALPESH ([id number]), index editor WENDI TIDWELL ([id number]) on 07/01/2023 8:40:20 AM Referred By: NATALIA Confirmed By:ALPESH MONTANA MD
--- NOTE | 2023-06-20 01:20 | RAD_ITS ---
INDICATION: chest pain EXAMINATION/TECHNIQUE: X-RAY - XR Chest 1 View COMPARISON: August 14, 2021, November 29, 2022, January 03, 2023. FINDINGS: LINES/DEVICES: None. LUNGS: Linear opacity within the right middle lobe along the minor fissure. Small right and trace left effusion. Medial left lung base retrocardiac opacity. Mild basilar interstitial thickening. No pneumothorax. MEDIASTINUM AND CARDIOVASCULAR STRUCTURES: Mild cardiomegaly. Sternotomy wires are midline and intact. Mild aortic atherosclerosis. BONES AND SOFT TISSUES: Unremarkable. RAD/Chest 1 View (Portable) IMPRESSION: Nonspecific mediastinal left lower lung retrocardiac opacity which could represent atelectasis or airspace disease or overlapping shadows. Consider PA and lateral chest radiograph. Cardiomegaly with mild interstitial edema and small right effusion. Trace left effusion. Atelectasis or fluid along the right minor fissure. Electronically Signed: Cam Benson MD at 1:51 EST ,
[2023-06-20 01:25] LABS: Absolute Lymphocyte Count 0.49 X10^3/uL (0.83-4.51); Absolute Neutrophil Count 2.7 X10^3/uL (2.0-7.7); Basophil# 0.02 X10^3/uL; Basophil% 0.5 % (0-1); Eosinophil# 0.06 X10^3/uL; Eosinophils% 1.6 % (0-5); Hematocrit 25.3 % (40-54); Hemoglobin 7.8 g/dL (13.0-16.5); Lymphocyte # 0.49 X10^3/ul (0.83-4.51); Lymphocyte % 13.3 % (19-41); Mean Corp Hgb Conc 30.8 g/dL (32-36); Mean Corpuscular Hgb 34.8 pg (27.0-32.0); Mean Corpuscular Volume 112.9 fL (80-94); Mean Platelet Vol. 10.7 fl (6.2-12.0); Monocyte% 10.9 % (0-10); NRBC Flagged by Analyzer 0 % (0-5); Neutrophil % 73.4 % (47-70); POSITIVE COUNT YES; POSITIVE DIFFERENTIAL YES; POSITIVE MORPHOLOGY YES; Platelet Count 97 K/mm3 (150-450); RBC Distribution Width CV 19.5 % (11.6-14.6); RBC Distribution Width SD 81.2 fl (35.1-43.9); Red Blood Count 2.24 M/mm3 (4.6-6.2); White Blood Count 3.7 K/mm3 (4.4-11.0)
[2023-06-20 01:30] LABS: Differential Indicated SCAN CRITERIA MET
[2023-06-20 01:40] LABS: Anion Gap 5 (5-15); BUN 47 mg/dL (7-18); BUN/Creat Ratio 18.8 RATIO (10-20); Calcium,Total 8.9 mg/dL (8.5-10.1); Chloride 119 mmol/L (98-107); EST Glomerular Filtration Rate 26 mL/min (>60); Est Glom Filt Rate - Afr Amer 32 mL/min (>60); Estimated Creatinine Clearance 23.93 ml/min; Glucose 84 mg/dL (74-106); Potassium 5.7 mmol/L (3.5-5.1); Sodium Level 145 mmol/L (136-145); Troponin-I HS 44 pg/mL (3.0-78.0)
[2023-06-20] MEDS: Albuterol 2.5 MG/3 ML VIAL.NEB. 10 MG INHALATION (02:06)
[2023-06-20 02:08] LABS: Differential Comment SCANNED; Platelet Estimate MOD DEC (ADEQ)
[2023-06-20 02:09] LABS: Anisocytosis 2+
[2023-06-20] MEDS: Dextrose 50%-Water 25 GM/50 ML DISP.SYRIN IV ×2 (02:37→05:43)
[2023-06-20] MEDS: Calcium Gluconate IV 3 GM in Syringe 1 EACH IV (02:39)
[2023-06-20] MEDS: Insulin Lispro 10 UNIT in Syringe 0 ML 6 UNIT IV (02:43)
[2023-06-20] MEDS: Dextrose 10%-Water 250 ML 40 ML IV (02:46)
[2023-06-20 05:56] LABS: Bedside Glucose 40 mg/dL (74-106)
[2023-06-20 06:22] LABS: Bedside Glucose 135 mg/dL (74-106)
--- NOTE | 2023-06-20 06:50 | EKG12_ITS ---
Test Reason : REPEAT Blood Pressure : / mmHG Vent. Rate : 041 BPM Atrial Rate : 041 BPM P-R Int : 326 ms QRS Dur : 120 ms QT Int : 580 ms P-R-T Axes : 045 -16 -12 degrees QTc Int : 478 ms Marked sinus bradycardia with 1st degree A-V block Septal infarct , age undetermined Abnormal ECG Confirmed by RUBÉN WATSON, ALPESH ([id number]), editor managing newspaper WENDI TIDWELL ([id number]) on 07/01/2023 8:39:35 AM Referred By: Confirmed By:ALPESH MONTANA MD
--- NOTE | 2023-06-20 07:32 | NURSING ---
DR HEIDY SPIVEY
--- NOTE | 2023-06-20 07:42 | HP.PCM.HOS_ITS ---
HPI - General General Date of Admission: 06/20/23 Date of Service: 06/20/23 Chief Complaint: Woke up with shortness of breath and palpitation and flutter sensation. Recurrent fall HPI Narrative EULOGIO NOGUERA, is a 82 M with multiple comorbidities was brought by EMS squad for palpitation and shortness of breath. He stated about 1:30 AM today he felt like flutter waves, was short of breath was dizzy and lightheaded. Patient denies chest pressure tightness or congestion. He denies fever cough, recent URI symptoms or pneumonia like symptoms. Patient further said he had a fall about 3 times in the last 10 days. He fell yesterday, day before yesterday and about 8 days ago. He states while turning he loses balance and then fall. He also has ulcer over right lower leg from fall which is chronic and follows with wound center. He also has a left heel ulcer and left leg ulcer is healing. As per EMS EKG shows sinus bradycardia heart rate 60 but in ED 8 gradually decreased to 42.8. Neck blood pressure initially was 144/59 but decreased down in the 90s. Patient was given 1 L normal saline bolus and hyperkalemia cocktail for hyperkalemia serum potassium 5.7. Patient glucose was also 40 probably due to insulin, hyperkalemia cocktail and had D10. [facility] Medical History Alcohol use Atherosclerotic heart disease of [place] coronary artery without angina pectoris Atrial fibrillation and flutter Cardiology follow-up encounter Carotid artery stenosis Dietary restriction Elevated troponin Emphysema of lung Essential hypertension Fever Former smoker Hematemesis/vomiting blood High cholesterol History of atrial fibrillation History of cardioversion (~05/09/20) History of coronary artery disease History of echocardiogram History of edema History of GI bleed History of right inguinal hernia History of stress test History of transesophageal echocardiography (ROSI) History of umbilical hernia Hx of ulcerative colitis Hypercholesterolemia Hyperlipidemia Hypertension Injury of head and neck USP (current) use 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 Mitral valve insufficiency PAD (peripheral artery disease) Premature atrial contractions Right carotid bruit Subclavian artery stenosis, left (~10/15/19) Thrombocytopenia Thrombocytopenia Thyroid disease Ulcerative colitis Upper GI bleed Upper GI bleed Walker as ambulation aid Wears glasses Wears hearing aid Home Medications ferrous sulfate 325 mg (65 mg iron) tablet 325 mg PO DAILY vitamin 05/28/15 [History Last Taken 05/09/20] vitamin B complex 1 each PO DAILY vitamin 02/07/16 [History Last Taken 05/09/20] levothyroxine 50 mcg tablet 75 mcg PO DAILY thyroid 06/13/20 [History Last Taken Unknown] acetaminophen 500 mg tablet 1,000 mg (2 x 500 mg) PO Q6H PRN PRN Pain Score 1-5 #0 tabs 12/19/22 [Rx Last Taken Unknown] aspirin 81 mg tablet,delayed release 81 mg PO DAILY 04/14/23 [History Last Taken Unknown] atorvastatin 40 mg tablet (Lipitor) 40 mg PO DAILY cholesterol #90 tabs 04/14/23 [Rx Last Taken Unknown] balsalazide 750 mg capsule (Colazal) 2,250 mg PO BID 04/14/23 [History Last Taken Unknown] hydralazine 50 mg tablet 50 mg PO BID 04/14/23 [History Last Taken Unknown] amiodarone 200 mg tablet See Rx Instructions .Route .COMPLEX #90 TABLETS 05/09/23 [Rx Last Taken Unknown] amlodipine 10 mg tablet 10 mg PO DAILY #90 tabs 05/20/23 [Rx Last Taken Unknown] carvedilol 3.125 mg tablet 3.125 mg PO BID heart #180 tabs 05/21/23 [Rx Last Taken Unknown] lisinopril 20 mg tablet 20 mg PO DAILY #90 tabs 05/21/23 [Rx Last Taken Unknown] ciprofloxacin HCl 750 mg tablet 750 mg PO BID 2 weeks #28 tabs 06/09/23 [Rx Last Taken Unknown] doxycycline hyclate 100 mg capsule 100 mg PO BID 2 weeks #28 caps 06/09/23 [Rx Last Taken Unknown] Allergy/AdvReac Type Severity Reaction Status Date / Time hydrochlorothiazide Allergy Severe Rash Verified 06/20/23 00:46 furosemide [From Lasix] Allergy Severe Verified 06/20/23 00:46 Rash Itchy lovastatin [From Mevacor] Allergy Rash Verified 06/20/23 00:46 Family History Father CAD (coronary artery disease) Mother Cancer breast Surgical History Aortocoronary bypass status (~02/12/17) History of cardiac catheterization History of hand surgery History of right inguinal hernia repair History of umbilical hernia repair History of vasectomy Hx of CABG Hx of colonoscopy Hx of esophagogastroduodenoscopy Hx of heart bypass surgery S/P right inguinal hernia repair S/P umbilical hernia repair, follow-up exam Status post insertion of drug-eluting stent into right coronary artery for coronary artery disease (~04/2009) Social History adopted: No household members: spouse housing: house number of children: 2 current occupational status: retired Smoking Status: Former smoker Tobacco: How many years used: 50 (stopped about 10 yrs ago) how long ago did patient quit smokin years ago alcohol intake: current alcohol intake frequency: 3 or more drinks per day Alcohol type: beer, wine and hard liquor substance use type: does not use caffeine: Yes Type: coffee Number of servings: 2 ROS ROS Narrative Constitutional: Reports fatigue and weakness. No fever. HEENT: Reports systems reviewed and no addt'l complaints, except as documented Respiratory/Chest: As described in HPI. CVS: Severe bradycardia. No chest pain or pressure. No syncope. No LOC Gastrointestinal: Denies coffee ground emesis, hematemesis or vomiting Genitourinary: No acute change in urine output. Denies burning urination or new urinary tract symptoms Musculoskeletal: Easy loss of balance, weakness in lower leg muscles. Due to arthritis. Neurologic: Denies seizure-like symptoms. No acute or strokelike symptoms. skin: Bilateral lower leg and left heel ulcer chronic in nature. Endocrinology: Reports systems reviewed and no addt'l complaints, except as documented Hematologic/Lymphatic: Reports systems reviewed and no addt'l complaints, except as documented Rest 14 ROS are negative except as mentioned in HPI Vital Signs Vital Signs Vital Signs: 06/20/23 00:43 06/20/23 00:42 06/20/23 00:47 Temperature 96.5 F L Temperature Source Temporal Pulse Rate 60 61 Respiratory Rate 20 H 17 Respiratory Effort Short of Breath Respiratory Pattern Blood Pressure 144/59 H 144/59 H Blood Pressure Mean 87 87 Pulse Ox 95 98 Oxygen Delivery Method Room Air Room Air 06/20/23 01:06 06/20/23 02:08 06/20/23 02:47 Temperature Temperature Source Pulse Rate 55 L 59 L Respiratory Rate 20 H 17 Respiratory Effort Respiratory Pattern Normal Blood Pressure 115/58 L Blood Pressure Mean 77 Pulse Ox 98 93 Oxygen Delivery Method Room Air Room Air 06/20/23 05:44 Temperature Temperature Source Pulse Rate 42 L Respiratory Rate 16 Respiratory Effort Respiratory Pattern Blood Pressure 91/45 L Blood Pressure Mean 60 Pulse Ox 86 Oxygen Delivery Method Room Air Weight Weight: 191 lb 2.252 oz Body Mass Index (BMI) 27.4 Physical Exam Narrative General: Alert, Oriented x3, Cooperative HEENT: Atraumatic, PERRLA, EOMI, Normocephalic Oral: Oral mucosa dry. No Gingival or Mucosal Lesions/ Ulcerations Neck: Supple, No JVD, Negative Carotid Bruits Lungs: Air entry diminished in bilateral lung bases. No crepitation/rhonchi Cardiovascular: Sinus bradycardia normal S1, Normal S2, systolic murmur right second ICS LLSB. Aortic stenosis Abdomen: Bowel Sounds Present, Soft, Non Tender, Non-Distended : No renal angle tenderness. No suprapubic tenderness. Extremities: No edema, Capillary Refill Less than 3 Seconds Skin: Mild bruise over right nasolabial fold from previous fall. No acute bleeding. Bilateral lower leg ulcer chronic right is worse. Left heel ulcer. Musculoskeletal: No acute tenderness to Palpation of Joints or Extremities. Muscle strength 4+/5 at knees and hip joints. Neurological: Cranial nerves II-XII grossly intact, DTR 2+/4. No acute focal n eurological deficit. Psych/Mental Status: Flat affect Results Lab / Micro Data 06/20/23 01:18 06/20/23 07:25 Labs: Laboratory Results - last 24 hr 06/20/23 01:18: WBC 3.7 L, RBC 2.24 L, Hgb 7.8 L, Hct 25.3 L, MCV 112.9 H, MCH 34.8 H, MCHC 30.8 L, RDW Std Deviation 81.2 H, RDW Coeff of Chanel 19.5 H, Plt Count 97 L, MPV 10.7, Immature Gran % (Auto) 0.300, Neut % (Auto) 73.4 H, Lymph % (Auto) 13.3 L, [place] % (Auto) 10.9 H, Eos % (Auto) 1.6, Baso % (Auto) 0.5, Absolute Neuts (auto) 2.7, Absolute Lymphs (auto) 0.49 L, Nucleated RBC % 0, Differential Comment SCANNED, Diff Path Review May foll, Platelet Estimate MOD DEC, Anisocytosis 2+, Sodium 145, Potassium 5.7 H, Chloride 119 H, Carbon Dioxide 21.0, Anion Gap 5, BUN 47 H, Creatinine 2.50 H, Estim Creat Clear Calc 23.93, Est GFR (MDRD) Af Amer 32 L, Est GFR (MDRD) Non-Af 26 L, BUN/Creatinine Ratio 18.8, Glucose 84, Calcium 8.9, Troponin I High Sens 44 06/20/23 05:37: POC Glucose 40 L* 06/20/23 06:04: POC Glucose 135 H Imagaing Radiology Impression Chest X-Ray 06/20/23 01:20 IMPRESSION: Nonspecific mediastinal left lower lung retrocardiac opacity which could represent atelectasis or airspace disease or overlapping shadows. Consider PA and lateral chest radiograph. Cardiomegaly with mild interstitial edema and small right effusion. Trace left effusion. Atelectasis or fluid along the right minor fissure. Electronically Signed: Cam Benson MD at 1:51 EST Reading Location ID and State: Counts include 234 beds at the [facility] / [place] Tel , Service support , Assessment & Plan Assessment/Plan (1) Severe sinus bradycardia: (2) CKD (chronic kidney disease) stage 3, GFR 30-59 ml/min: (3) Hyperkalemia: PLAN: Plan 82-year-old gentleman being admitted for multiple acute issues including severe bradycardia, palpitation, severe hyperkalemia and recurrent fall 1. First-degree AV block/severe sinus bradycardia with history of chronic A- fib/flutter: Twelve-lead EKG initially reviewed and shows marked sinus bradycardia 81 bpm, first-degree AV block, QTc 478 previous EKG of January 03, 2023 was sinus bradycardia at 60 bpm. 2 serial troponins are negative. ACS ruled out. Patient on carvedilol 3.125 twice daily and amiodarone 200 mg daily and will hold it. [employer] consult requested. Last echo in November 2022 shows EF 60%, moderate MR, moderate 2+ TR, RVSP 77 mmHg suggestive of severe pulmonary hypertension. Left atrium enlarged. Carotid duplex in April 2023 shows moderate bilateral right and left extracranial internal carotid artery stenosis. Recent venous duplex in April 22, 2023 also negative for DVT. Arterial Doppler study on April 22, 2023 shows evidence of arterial calcification left ankle, monophasic waveforms, moderate arterial occlusive disease. Resting right KRSITIN is normal with biphasic Doppler waveforms. 2. Coronary artery disease status post CABG and stent, valvular heart disease as described above, severe pulmonary hypertension and PAD: Described in detail above. Patient on aspirin and high intensity atorvastatin therefore continued. Hold beta-anna 3. CKD stage 4 with severe hyperkalemia: Patient had potassium 5.7 and hyperkalemia cocktail was given. Repeat serum potassium 6.0. Hyperkalemia cocktail given along with bicarb drip. Labs reviewed BUN 59/creatinine 2.59 on baseline, estimated creatinine clearance 23 mill per minute. Electricity Trading Analyst is consulted. Patient got total of Kayexalate 45 g. Repeat serum potassium at 2 PM ordered. 4. Chronic mild pancytopenia: Patient had pancytopenia during previous admission in November 2022. WBC count 3.7 thousand, H&H 7.8/25.3, severe macrocytic anemia with elevated MCV, MCH and RDW. Severe thrombocytopenia 97,000. Patient had anisocytosis. Recent B12 and folate normal range on 03/26/2023. Iron panel was consistent with anemia of chronic disease. 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 Mcintyre 5. History of ulcerative colitis continue Colazal. 6. Hypothyroidism: Continue Synthroid. TSH ordered for tomorrow AM. 7. Acute on recurrent fall: PT and OT ordered. 8. Chronic bilateral lower leg ulcer with left heel ulcer suggestive of decubitus ulcer with history of peripheral artery disease: Patient has bilateral lower leg ulcer initially started with fall. 9. History of chronic alcohol use disorder 10. History of COPD/emphysema with VATS : In August [facility] at [facility] after CT surgery evaluation. Had pneumothorax at that time DVT prophylaxis: Pharmacologic contraindicated due to severe thrombocytopenia and anemia. Bilateral SCDs Living will/advanced directive/end of life care: Patient does have living will or advanced directive. After discussion of benefits/risks procedures involved with full code, DNR CC arrest and DNR CC, the patient said that he is DNR CC arrest with no intubation. He has power of commercial real estate attorney for health and both sons are equally power of commercial real estate attorney for healthcare Patient does want artificial life support including intubation, tube feed, ventilator and/chest compression, central venous catheter, vasopressor and DC shock if needed Total time spent in [id number] encounter in discussion of advanced directive 17 minutes. Laboratory Results 06/20/23 01:18: WBC 3.7 L, RBC 2.24 L, Hgb 7.8 L, Hct 25.3 L, MCV 112.9 H, MCH 34.8 H, MCHC 30.8 L, RDW Std Deviation 81.2 H, RDW Coeff of Chanel 19.5 H, Plt Count 97 L, MPV 10.7, Immature Gran % (Auto) 0.300, Neut % (Auto) 73.4 H, Lymph % (Auto) 13.3 L, [place] % (Auto) 10.9 H, Eos % (Auto) 1.6, Baso % (Auto) 0.5, Absolute Neuts (auto) 2.7, Absolute Lymphs (auto) 0.49 L, Nucleated RBC % 0, Differential Comment SCANNED, Diff Path Review October, Platelet Estimate MOD DEC, Anisocytosis 2+, Sodium 145, Potassium 5.7 H, Chloride 119 H, Carbon Dioxide 21.0, Anion Gap 5, BUN 47 H, Creatinine 2.50 H, Estim Creat Clear Calc 23.93, Est GFR (MDRD) Af Amer 32 L, Est GFR (MDRD) Non-Af 26 L, BUN/Creatinine Ratio 18.8, Glucose 84, Calcium 8.9, Troponin I High Sens 44 06/20/23 05:37: POC Glucose 40 L* 06/20/23 06:04: POC Glucose 135 H 06/20/23 07:25: Sodium 143, Potassium 6.0 H*, Chloride 119 H, Carbon Dioxide 22. 0, Anion Gap 2 L, BUN 51 H, Creatinine 2.59 H, Estim Creat Clear Calc 23.10, Est GFR (MDRD) Af Amer 31 L, Est GFR (MDRD) Non-Af 25 L, BUN/Creatinine Ratio 19.7, Glucose 113 H, Calcium 9.3, Phosphorus 3.8, Magnesium 2.0, Troponin I High Sens 71 06/20/23 08:55: POC Glucose 150 H 2D echo November 29, 2022 Interpretation Summary The study was technically difficult. Moderate concentric left ventricular hypertrophy. The left ventricular ejection fraction is 60 %. Diastolic function is indeterminate. The left atrium is severely enlarged. 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 Moderate (2+) tricuspid valve insufficiency. Severe pulmonary hypertension. The right atrium is moderately enlarged. Charges/Coding Visit Charges Inpatient E&M: 13609 Init Hosp Procedures Hospitalists Procedures: 91333 Advncd Care Plan 30 Min
--- NOTE | 2023-06-20 07:57 | NURSING ---
PCU HEIDY DEBILITY, GEN WEAKNESS, HYPERKALEMIA
[2023-06-20] MEDS: 0.9% Normal Saline (1000mL) 1,000 ML 1000 ML IV (07:59)
--- NOTE | 2023-06-20 08:00 | RAD_ITS ---
STUDY: X-RAY CHEST REASON FOR EXAM: Male, 82 years old. Left retrocardiac shadow on portable x-ray TECHNIQUE: AP and lateral views of the chest. COMPARISON: Comparison is made with prior study done earlier in the day. FINDINGS: EKG electrodes are seen. There is blunting of the costophrenic angles with small amount of fluid in the right minor fissure. Atelectasis and/or early infiltrate in the left lower lobe. Sternal cerclage wires and vascular clips are present from a prior sternotomy and coronary artery bypass graft procedure (CABG). Mild cardiomegaly. Normal mediastinum and aidan. Normal visualized pulmonary arteries. There is atherosclerotic calcification of the aortic arch with tortuosity. Normal visualized thoracic spine. Normal visualized ribs, clavicles, and shoulders. There is no demonstrated abnormality of the visualized soft tissue structures of the upper abdomen. RAD/Chest PA and Lateral IMPRESSION: Mild cardiomegaly with blunting of both costophrenic angles and the atelectasis and/or early infiltrate at the left lung base. Electronically Signed: Apolinar Rosen MD at 8:16 EST ,
[2023-06-20 08:04] LABS: Anion Gap 2 (5-15); BUN 51 mg/dL (7-18); BUN/Creat Ratio 19.7 RATIO (10-20); Calcium,Total 9.3 mg/dL (8.5-10.1); Chloride 119 mmol/L (98-107); Creatinine, Serum 2.59 mg/dL (0.70-1.30); EST Glomerular Filtration Rate 25 mL/min (>60); Est Glom Filt Rate - Afr Amer 31 mL/min (>60); Glucose 113 mg/dL (74-106); Sodium Level 143 mmol/L (136-145); Troponin-I HS 71 pg/mL (3.0-78.0)
[2023-06-20 08:14] LABS: Phosphorus 3.8 mg/dL (2.5-4.9)
[2023-06-20 09:16] LABS: Bedside Glucose 150 mg/dL (74-106)
--- NOTE | 2023-06-20 10:01 | PCM.CONS.R ---
Documented by User: TESSA Nava 06/20/23 10:26 Assessment & Plan Assessment/Plan (1) Hyperkalemia: (2) Palpitations: (3) CKD (chronic kidney disease) stage 3, GFR 30-59 ml/min: PLAN: Plan This is an 82-year-old male with past medical history significant for coronary artery disease status post CABG x 2, history of drug-eluting stents, A-fib requiring cardioversion, history of mesenteric artery stenosis followed by Dr. Khanna, had renal Dopplers in past which did not show any renal artery stenosis, CKD stage III/IV, history of peripheral vascular disease and chronic lower extremity wounds recently seen by Dr. Lim who was brought to the emergency room via squad early this morning as patient noted palpitations at home. Initial EKG in the emergency room showed sinus rhythm with first-degree AV block with heart rate of 60. Follow-up EKG showed sinus bradycardia with first-degree AV block, heart rate in the 40s. Patient was admitted for further evaluation and treatment. Nephrology consulted as patient has history of CKD stage III/IV. Baseline serum creatinine has been ranging around 2 to 2.4 mg/dL, baseline eGFR ~29-32ml/min. Currently renal function appears to be stable at baseline upon admission, his creatinine is 2.5. Patient did have lab work on 04/16/2023 creatinine 2.82. Patient is noted to be hyperkalemic. Initial potassium in the emergency room was 5.7, he received calcium gluconate, dextrose and insulin as well as aerosol treatment. Repeat potassium 6.0 at 730 this morning and patient ordered bicarb, D50 and calcium gluconate again. He is also been ordered Kayexalate, 45gms. We will repeat potassium later today. Recommend holding lisinopril. Recommend renal diet restrictions. Patient was noted to be hypotensive in the emergency room and did receive fluid bolus challenge, blood pressures have improved. Patient bradycardic with heart rate 40s to 50s, cardiology has been consulted, beta-anna and amiodarone currently on hold. Overall renal function is stable, near baseline. Reviewed chest x-ray from the emergency room which showed mild cardiomegaly with blunting of both costophrenic angles, possible early infiltrate left lung base. Patient does appear to be near euvolemic, there is no acidemia, no acute indication for STEM SHAPER at this time. UA pending. Will check CPK as patient recently had some falls at home. Labs ordered for later today as well as morning. Discussed nephrology plan with Dr. Moulton. Further orders forthcoming as hospitalization evolves, thank you for allowing us to participate in the care of Mr. Noguera. HPI Consult Data Date of Consult: 06/20/23 HPI Narrative HPI Narrative: EULOGIO NOGUERA, is a 82 M with past medical history significant for coronary artery disease status post CABG x 2, history of drug-eluting stents, A-fib requiring cardioversion, history of mesenteric artery stenosis followed by Dr. Khanna, had renal Dopplers in past which did not show any renal artery stenosis, CKD stage III/IV who was brought to the emergency room via EMS early this morning as patient reports earlier this morning he noted his heart to be beating fast, feeling weak therefore summoned EMS and brought to ER for further evaluation and treatment. Patient had lab work drawn in the emergency room found to have potassium of 5.7 130 this morning, repeat potassium 6.0 at 730 this morning. Nephrology consulted as patient has history of CKD and also for hyperkalemia. Patient reports he had been feeling weak over the last few weeks or so. He was recently started on antibiotics for lower extremity ulcers which seems to be Cipro and Doxy. Patient denies any urinary habitus changes including hematuria dysuria or noting decrease in urine output. He denies any worsening lower extremity edema. Denies any nausea or vomiting. [facility] Medical History Alcohol use Atherosclerotic heart disease of [place] coronary artery without angina pectoris Atrial fibrillation and flutter Cardiology follow-up encounter Carotid artery stenosis Dietary restriction Elevated troponin Emphysema of lung Essential hypertension Fever Former smoker Hematemesis/vomiting blood High cholesterol History of atrial fibrillation History of cardioversion (~05/09/20) History of coronary artery disease History of echocardiogram History of edema History of GI bleed History of right inguinal hernia History of stress test History of transesophageal echocardiography (ROSI) History of umbilical hernia Hx of ulcerative colitis Hypercholesterolemia Hyperlipidemia Hypertension Injury of head and neck alf (current) use 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 Mitral valve insufficiency PAD (peripheral artery disease) Premature atrial contractions Right carotid bruit Subclavian artery stenosis, left (~10/15/19) Thrombocytopenia Thrombocytopenia Thyroid disease Ulcerative colitis Upper GI bleed Upper GI bleed Walker as ambulation aid Wears glasses Wears hearing aid Home Medications ferrous sulfate 325 mg (65 mg iron) tablet 325 mg PO DAILY vitamin 05/28/15 [History Last Taken 05/09/20] vitamin B complex 1 each PO DAILY vitamin 02/07/16 [History Last Taken 05/09/20] levothyroxine 50 mcg tablet 75 mcg PO DAILY thyroid 06/13/20 [History Last Taken Unknown] acetaminophen 500 mg tablet 1,000 mg (2 x 500 mg) PO Q6H PRN PRN Pain Score 1-5 #0 tabs 12/19/22 [Rx Last Taken Unknown] aspirin 81 mg tablet,delayed release 81 mg PO DAILY 04/14/23 [History Last Taken Unknown] atorvastatin 40 mg tablet (Lipitor) 40 mg PO DAILY cholesterol #90 tabs 04/14/23 [Rx Last Taken Unknown] balsalazide 750 mg capsule (Colazal) 2,250 mg PO BID 04/14/23 [History Last Taken Unknown] hydralazine 50 mg tablet 50 mg PO BID 04/14/23 [History Last Taken Unknown] amiodarone 200 mg tablet See Rx Instructions .Route .COMPLEX #90 TABLETS 05/09/23 [Rx Last Taken Unknown] amlodipine 10 mg tablet 10 mg PO DAILY #90 tabs 05/20/23 [Rx Last Taken Unknown] carvedilol 3.125 mg tablet 3.125 mg PO BID heart #180 tabs 05/21/23 [Rx Last Taken Unknown] lisinopril 20 mg tablet 20 mg PO DAILY #90 tabs 05/21/23 [Rx Last Taken Unknown] ciprofloxacin HCl 750 mg tablet 750 mg PO BID 2 weeks #28 tabs 06/09/23 [Rx Last Taken Unknown] doxycycline hyclate 100 mg capsule 100 mg PO BID 2 weeks #28 caps 06/09/23 [Rx Last Taken Unknown] Allergy/AdvReac Type Severity Reaction Status Date / Time hydrochlorothiazide Allergy Severe Rash Verified 06/20/23 00:46 furosemide [From Lasix] Allergy Severe Verified 06/20/23 00:46 Rash Itchy lovastatin [From Mevacor] Allergy Rash Verified 06/20/23 00:46 Family History Father CAD (coronary artery disease) Mother Cancer breast Surgical History Aortocoronary bypass status (~02/12/17) History of cardiac catheterization History of hand surgery History of right inguinal hernia repair History of umbilical hernia repair History of vasectomy Hx of CABG Hx of colonoscopy Hx of esophagogastroduodenoscopy Hx of heart bypass surgery S/P right inguinal hernia repair S/P umbilical hernia repair, follow-up exam Status post insertion of drug-eluting stent into right coronary artery for coronary artery disease (~04/2009) Social History adopted: No household members: spouse housing: house number of children: 2 current occupational status: retired Smoking Status: Former smoker Tobacco: How many years used: 50 (stopped about 10 yrs ago) how long ago did patient quit smokin years ago alcohol intake: current alcohol intake frequency: 3 or more drinks per day Alcohol type: beer, wine and hard liquor substance use type: does not use caffeine: Yes Type: coffee Number of servings: 2 ROS ROS Narrative As in HPI and past medical history Physical Exam Narrative Alert and orient x 3, no apparent distress S1, S2, rhythm irregular rate controlled Lung sounds clear anteriorly and posteriorly. No wheezes, rhonchi rales Abdomen soft, nontender Dressings intact to bilateral legs from feet to knees. No pitting edema to bilateral thighs. Trace edema bilateral lower legs Lab / Micro Data 06/20/23 01:18 06/20/23 13:45 Labs: Laboratory Results - last 24 hr 06/20/23 01:18: WBC 3.7 L, RBC 2.24 L, Hgb 7.8 L, Hct 25.3 L, MCV 112.9 H, MCH 34.8 H, MCHC 30.8 L, RDW Std Deviation 81.2 H, RDW Coeff of Chanel 19.5 H, Plt Count 97 L, MPV 10.7, Immature Gran % (Auto) 0.300, Neut % (Auto) 73.4 H, Lymph % (Auto) 13.3 L, [place] % (Auto) 10.9 H, Eos % (Auto) 1.6, Baso % (Auto) 0.5, Absolute Neuts (auto) 2.7, Absolute Lymphs (auto) 0.49 L, Nucleated RBC % 0, Differential Comment SCANNED, Diff Path Review May foll, Platelet Estimate MOD DEC, Anisocytosis 2+, Sodium 145, Potassium 5.7 H, Chloride 119 H, Carbon Dioxide 21.0, Anion Gap 5, BUN 47 H, Creatinine 2.50 H, Estim Creat Clear Calc 23.93, Est GFR (MDRD) Af Amer 32 L, Est GFR (MDRD) Non-Af 26 L, BUN/Creatinine Ratio 18.8, Glucose 84, Calcium 8.9, Troponin I High Sens 44 06/20/23 05:37: POC Glucose 40 L* 06/20/23 06:04: POC Glucose 135 H 06/20/23 07:25: Sodium 143, Potassium 6.0 H*, Chloride 119 H, Carbon Dioxide 22.0, Anion Gap 2 L, BUN 51 H, Creatinine 2.59 H, Estim Creat Clear Calc 23.10, Est GFR (MDRD) Af Amer 31 L, Est GFR (MDRD) Non-Af 25 L, BUN/Creatinine Ratio 19.7, Glucose 113 H, Calcium 9.3, Phosphorus 3.8, Magnesium 2.0, Troponin I High Sens 71 06/20/23 08:55: POC Glucose 150 H Imagaing Radiology Impression Chest X-Ray 06/20/23 01:20 IMPRESSION: Nonspecific mediastinal left lower lung retrocardiac opacity which could represent atelectasis or airspace disease or overlapping shadows. Consider PA and lateral chest radiograph. Cardiomegaly with mild interstitial edema and small right effusion. Trace left effusion. Atelectasis or fluid along the right minor fissure. Electronically Signed: Cam Benson MD at 1:51 EST , Chest X-Ray 06/20/23 08:00 IMPRESSION: Mild cardiomegaly with blunting of both costophrenic angles and the atelectasis and/or early infiltrate at the left lung base. Electronically Signed: Apolinar Rosen MD at 8:16 EST , Documented by User: Dr. Kvng James MD 06/20/23 15:29 Assessment & Plan Assessment/Plan (1) Hyperkalemia: (2) Palpitations: (3) CKD (chronic kidney disease) stage 3, GFR 30-59 ml/min: PLAN: Plan This is an 82-year-old male with past medical history significant for coronary artery disease status post CABG x 2, history of drug-eluting stents, A-fib requiring cardioversion, history of mesenteric artery stenosis followed by Dr. Khanna, had renal Dopplers in past which did not show any renal artery stenosis, CKD stage III/IV, history of peripheral vascular disease and chronic lower extremity wounds recently seen by Dr. Lim who was brought to the emergency room via squad early this morning as patient noted palpitations at home. Initial EKG in the emergency room showed sinus rhythm with first-degree AV block with heart rate of 60. Follow-up EKG showed sinus bradycardia with first-degree AV block, heart rate in the 40s. Patient was admitted for further evaluation and treatment. Nephrology consulted as patient has history of CKD stage III/IV. Baseline serum creatinine has been ranging around 2 to 2.4 mg/dL, baseline eGFR ~29-32ml/min. Currently renal function appears to be stable at baseline upon admission, his creatinine is 2.5. Patient did have lab work on 04/16/2023 creatinine 2.82. Patient is noted to be hyperkalemic. Initial potassium in the emergency room was 5.7, he received calcium gluconate, dextrose and insulin as well as aerosol treatment. Repeat potassium 6.0 at 730 this morning and patient ordered bicarb, D50 and calcium gluconate again. He is also been ordered Kayexalate, 45gms. We will repeat potassium later today. Recommend holding lisinopril. Recommend renal diet restrictions. Patient was noted to be hypotensive in the emergency room and did receive fluid bolus challenge, blood pressures have improved. Patient bradycardic with heart rate 40s to 50s, cardiology has been consulted, beta-anna and amiodarone currently on hold. Overall renal function is stable, near baseline. Reviewed chest x-ray from the emergency room which showed mild cardiomegaly with blunting of both costophrenic angles, possible early infiltrate left lung base. Patient does appear to be near euvolemic, there is no acidemia, no acute indication for STEM SHAPER at this time. UA pending. Will check CPK as patient recently had some falls at home. Labs ordered for later today as well as morning. Discussed nephrology plan with Dr. Moulton. Further orders forthcoming as hospitalization evolves, thank you for allowing us to participate in the care of Mr. Noguera. Patient was seen and examined independently. CKD stage IIIb. Previous baseline creatinine was around 2.0-2.1. Currently around 2.5. Hyperkalemia. Preadmission he was on lisinopril. He has received Kayexalate, had a big bowel movement just now. Repeat potassium better at 5.7 this was before his bowel movement. Previous echo reviewed. Chest x-ray is not correct. I will decrease the rate of fluid but continue bicarbonate drip for today Will check postvoid bladder scan HPI Consult Data Date of Consult: 06/20/23 [facility] Medical History Alcohol use Atherosclerotic heart disease of [place] coronary artery without angina pectoris Atrial fibrillation and flutter Cardiology follow-up encounter Carotid artery stenosis Dietary restriction Elevated troponin Emphysema of lung Essential hypertension Fever Former smoker Hematemesis/vomiting blood High cholesterol History of atrial fibrillation History of cardioversion (~05/09/20) History of coronary artery disease History of echocardiogram History of edema History of GI bleed History of right inguinal hernia History of stress test History of transesophageal echocardiography (ROSI) History of umbilical hernia Hx of ulcerative colitis Hypercholesterolemia Hyperlipidemia Hypertension 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 Mitral valve insufficiency PAD (peripheral artery disease) Premature atrial contractions Right carotid bruit Subclavian artery stenosis, left (~10/15/19) Thrombocytopenia Thrombocytopenia Thyroid disease Ulcerative colitis Upper GI bleed Upper GI bleed Walker as ambulation aid Wears glasses Wears hearing aid Home Medications ferrous sulfate 325 mg (65 mg iron) tablet 325 mg PO DAILY vitamin 05/28/15 [History Last Taken 05/09/20] vitamin B complex 1 each PO DAILY vitamin 02/07/16 [History Last Taken 05/09/20] levothyroxine 50 mcg tablet 75 mcg PO DAILY thyroid 06/13/20 [History Last Taken Unknown] acetaminophen 500 mg tablet 1,000 mg (2 x 500 mg) PO Q6H PRN PRN Pain Score 1-5 #0 tabs 12/19/22 [Rx Last Taken Unknown] aspirin 81 mg tablet,delayed release 81 mg PO DAILY 04/14/23 [History Last Taken Unknown] atorvastatin 40 mg tablet (Lipitor) 40 mg PO DAILY cholesterol #90 tabs 04/14/23 [Rx Last Taken Unknown] balsalazide 750 mg capsule (Colazal) 2,250 mg PO BID 04/14/23 [History Last Taken Unknown] hydralazine 50 mg tablet 50 mg PO BID 04/14/23 [History Last Taken Unknown] amiodarone 200 mg tablet See Rx Instructions .Route .COMPLEX #90 TABLETS 05/09/23 [Rx Last Taken Unknown] amlodipine 10 mg tablet 10 mg PO DAILY #90 tabs 05/20/23 [Rx Last Taken Unknown] carvedilol 3.125 mg tablet 3.125 mg PO BID heart #180 tabs 05/21/23 [Rx Last Taken Unknown] lisinopril 20 mg tablet 20 mg PO DAILY #90 tabs 05/21/23 [Rx Last Taken Unknown] ciprofloxacin HCl 750 mg tablet 750 mg PO BID 2 weeks #28 tabs 06/09/23 [Rx Last Taken Unknown] doxycycline hyclate 100 mg capsule 100 mg PO BID 2 weeks #28 caps 06/09/23 [Rx Last Taken Unknown] Allergy/AdvReac Type Severity Reaction Status Date / Time hydrochlorothiazide Allergy Severe Rash Verified 06/20/23 00:46 furosemide [From Lasix] Allergy Severe Verified 06/20/23 00:46 Rash Itchy lovastatin [From Mevacor] Allergy Rash Verified 06/20/23 00:46 Family History Father CAD (coronary artery disease) Mother Cancer breast Surgical History Aortocoronary bypass status (~02/12/17) History of cardiac catheterization History of hand surgery History of right inguinal hernia repair History of umbilical hernia repair History of vasectomy Hx of CABG Hx of colonoscopy Hx of esophagogastroduodenoscopy Hx of heart bypass surgery S/P right inguinal hernia repair S/P umbilical hernia repair, follow-up exam Status post insertion of drug-eluting stent into right coronary artery for coronary artery disease (~04/2009) Social History adopted: No household members: spouse housing: house number of children: 2 current occupational status: retired Smoking Status: Former smoker Tobacco: How many years used: 50 (stopped about 10 yrs ago) how long ago did patient quit smokin years ago alcohol intake: current alcohol intake frequency: 3 or more drinks per day Alcohol type: beer, wine and hard liquor substance use type: does not use caffeine: Yes Type: coffee Number of servings: 2 Lab / Micro Data 06/20/23 01:18 06/20/23 13:45
[2023-06-20] MEDS: Calcium Gluconate IV 2 GM in 0.9% Normal Saline (100mL Bag) 100 ML IV (10:10)
[2023-06-20] MEDS: Sodium Polystyrene Sulfonate 15 GM/60 ML UDC 30 GM PO (10:26)
--- NOTE | 2023-06-20 11:00 | CASEMGMT ---
RN HERB Face to Face with patient for initial transition planning/care coordination assessment. RN CM introduced self and role at [facility]. Patient lying in bed, alert and oriented. Patient willing to participate in assessment and is able to answer all questions appropriately. Care providers, pharmacy, and demographics verified. Patient wishes to discharge home, will monitor progress with therapy for HHC vs SNF. Patient states he has no further needs or concerns at this time. CM to follow for discharge planning needs that may arise. PCP: [facility] Specialists: JAYLIN, Cardiology; Adrián, podiatry; Yelena, GI; Francisco Javier, hematology Preferred Pharmacy: [facility] Insurance: [facility], [facility] Prescription Benefit: yes Living Will/HPOA: yes, sons Cam and Obed LNOK: sons Living Arrangements: Patient lives alone [place], 2 steps to enter. Patient is independent at home. is currently at [facility]. Transportation: self, public, friends DME/HHC: Patient has shower chair, raised toilet, cane, walker, grab bars, and rollator at home. Patient has been to [facility] in the past. Patient has had [facility] for HHC. Disposition Plan: TBD, anticipate HHC vs SNF at discharge. Fe MONSALVE, RN, CM
[2023-06-20] MEDS: Sodium Bicarbonate 150 MEQ in Dextrose 5%-Water (1000mL Bag) 1,000 ML 100 MEQ IV (11:07)
[2023-06-20 11:30] LABS: AST(SGOT) 37 U/L (15-37); Alanine Aminotransfer ALT/SGPT 14 U/L (16-61); Alkaline Phosphatase 108 U/L (45-117); Bilirubin, Direct 0.14 mg/dL (0.00-0.30); Globulin 2.5 g/dL (2.2-4.2); Protein, Total 5.5 g/dL (6.4-8.2)
[2023-06-20] MEDS: Sodium Polystyrene Sulfonate 15 GM/60 ML UDC PO (11:30)
--- NOTE | 2023-06-20 12:29 | WOUNDNOTE ---
wound photo: right lower leg
--- NOTE | 2023-06-20 12:29 | WOUNDNOTE ---
wound photo: left heel
[2023-06-20 13:19] LABS: Pathologist Review Reviewed
[2023-06-20 14:14] LABS: CPK Total, Creatine Kinase 53 U/L (39-308); Potassium 5.7 mmol/L (3.5-5.1)
--- NOTE | 2023-06-20 14:15 | CON.PCM.CA_ITS ---
HPI Consult Data Date of Consult: 06/20/23 [facility] Medical History Alcohol use Atherosclerotic heart disease of [place] coronary artery without angina pectoris Atrial fibrillation and flutter Cardiology follow-up encounter Carotid artery stenosis Dietary restriction Elevated troponin Emphysema of lung Essential hypertension Fever Former smoker Hematemesis/vomiting blood High cholesterol History of atrial fibrillation History of cardioversion (~05/09/20) History of coronary artery disease History of echocardiogram History of edema History of GI bleed History of right inguinal hernia History of stress test History of transesophageal echocardiography (ROSI) History of umbilical hernia Hx of ulcerative colitis Hypercholesterolemia Hyperlipidemia Hypertension Injury of head and neck [facility] (current) use 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 Mitral valve insufficiency PAD (peripheral artery disease) Premature atrial contractions Right carotid bruit Subclavian artery stenosis, left (~10/15/19) Thrombocytopenia Thrombocytopenia Thyroid disease Ulcerative colitis Upper GI bleed Upper GI bleed Walker as ambulation aid Wears glasses Wears hearing aid Home Medications ferrous sulfate 325 mg (65 mg iron) tablet 325 mg PO DAILY vitamin 05/28/15 [History Last Taken 05/09/20] vitamin B complex 1 each PO DAILY vitamin 02/07/16 [History Last Taken 05/09/20] levothyroxine 50 mcg tablet 75 mcg PO DAILY thyroid 06/13/20 [History Last Taken Unknown] acetaminophen 500 mg tablet 1,000 mg (2 x 500 mg) PO Q6H PRN PRN Pain Score 1-5 #0 tabs 12/19/22 [Rx Last Taken Unknown] aspirin 81 mg tablet,delayed release 81 mg PO DAILY 04/14/23 [History Last Taken Unknown] atorvastatin 40 mg tablet (Lipitor) 40 mg PO DAILY cholesterol #90 tabs 04/14/23 [Rx Last Taken Unknown] balsalazide 750 mg capsule (Colazal) 2,250 mg PO BID 04/14/23 [History Last Taken Unknown] hydralazine 50 mg tablet 50 mg PO BID 04/14/23 [History Last Taken Unknown] amiodarone 200 mg tablet See Rx Instructions .Route .COMPLEX #90 TABLETS 05/09/23 [Rx Last Taken Unknown] amlodipine 10 mg tablet 10 mg PO DAILY #90 tabs 05/20/23 [Rx Last Taken Unknown] carvedilol 3.125 mg tablet 3.125 mg PO BID heart #180 tabs 05/21/23 [Rx Last Ta zaki Unknown] lisinopril 20 mg tablet 20 mg PO DAILY #90 tabs 05/21/23 [Rx Last Taken Unknown] ciprofloxacin HCl 750 mg tablet 750 mg PO BID 2 weeks #28 tabs 06/09/23 [Rx Last Taken Unknown] doxycycline hyclate 100 mg capsule 100 mg PO BID 2 weeks #28 caps 06/09/23 [Rx Last Taken Unknown] Allergy/AdvReac Type Severity Reaction Status Date / Time hydrochlorothiazide Allergy Severe Rash Verified 06/20/23 00:46 furosemide [From Lasix] Allergy Severe Verified 06/20/23 00:46 Rash Itchy lovastatin [From Mevacor] Allergy Rash Verified 06/20/23 00:46 Family History Father CAD (coronary artery disease) Mother Cancer breast Surgical History Aortocoronary bypass status (~02/12/17) History of cardiac catheterization History of hand surgery History of right inguinal hernia repair History of umbilical hernia repair History of vasectomy Hx of CABG Hx of colonoscopy Hx of esophagogastroduodenoscopy Hx of heart bypass surgery S/P right inguinal hernia repair S/P umbilical hernia repair, follow-up exam Status post insertion of drug-eluting stent into right coronary artery for coronary artery disease (~04/2009) Social History adopted: No household members: spouse housing: house number of children: 2 current occupational status: retired Smoking Status: Former smoker Tobacco: How many years used: 50 (stopped about 10 yrs ago) how long ago did patient quit smokin years ago alcohol intake: current alcohol intake frequency: 3 or more drinks per day Alcohol type: beer, wine and hard liquor substance use type: does not use caffeine: Yes Type: coffee Number of servings: 2 Objective Data Vital Signs: Vital Signs Temp Pulse Resp BP Pulse Ox O2 Del Method O2 Flow Rate 98.6 F 47 L 12 130/79 H 96 Nasal Cannula 2 06/20/23 08:26 06/20/23 08:26 06/20/23 08:26 06/20/23 08:26 06/20/23 09:00 06/20/23 09:00 06/20/23 09:00 Oxygen Flow Rate (L/min) 2 Oxygen Delivery Method Nasal Cannula Weight: 187 lb 9.814 oz Body Mass Index (BMI) 26.9 Intake & Output: Intake and Output for Last 24 Hours 06/18/23 06/19/23 06/20/23 23:59 23:59 23:59 Intake Total 1400 / 1400 Balance 1400 / 1400 Lab / Micro Data 06/20/23 01:18 06/20/23 13:45 Labs: Laboratory Results - last 24 hr 06/20/23 01:18: WBC 3.7 L, RBC 2.24 L, Hgb 7.8 L, Hct 25.3 L, MCV 112.9 H, MCH 34.8 H, MCHC 30.8 L, RDW Std Deviation 81.2 H, RDW Coeff of Chanel 19.5 H, Plt Count 97 L, MPV 10.7, Immature Gran % (Auto) 0.300, Neut % (Auto) 73.4 H, Lymph % (Auto) 13.3 L, [place] % (Auto) 10.9 H, Eos % (Auto) 1.6, Baso % (Auto) 0.5, Absolute Neuts (auto) 2.7, Absolute Lymphs (auto) 0.49 L, Nucleated RBC % 0, Differential Comment SCANNED, Diff Path Review Reviewed, Platelet Estimate MOD DEC, Anisocytosis 2+, Sodium 145, Potassium 5.7 H, Chloride 119 H, Carbon Dioxide 21.0, Anion Gap 5, BUN 47 H, Creatinine 2.50 H, Estim Creat Clear Calc 23.93, Est GFR (MDRD) Af Amer 32 L, Est GFR (MDRD) Non-Af 26 L, BUN/Creatinine Ratio 18.8, Glucose 84, Calcium 8.9, Troponin I High Sens 44 06/20/23 05:37: POC Glucose 40 L* 06/20/23 06:04: POC Glucose 135 H 06/20/23 07:25: Sodium 143, Potassium 6.0 H*, Chloride 119 H, Carbon Dioxide 22.0, Anion Gap 2 L, BUN 51 H, Creatinine 2.59 H, Estim Creat Clear Calc 23.10, Est GFR (MDRD) Af Amer 31 L, Est GFR (MDRD) Non-Af 25 L, BUN/Creatinine Ratio 19.7, Glucose 113 H, Calcium 9.3, Phosphorus 3.8, Magnesium 2.0, Total Bilirubin 0.40, Direct Bilirubin 0.14, AST 37, ALT 14 L, Alkaline Phosphatase 108, Troponin I High Sens 71, Total Protein 5.5 L, Albumin 3.0 L, Globulin 2.5 06/20/23 08:55: POC Glucose 150 H 06/20/23 13:45: Potassium 5.7 H, Total Creatine Kinase 53 Cardiology Labs/Tests 06/20/23 01:18: WBC 3.7 L, RBC 2.24 L, Hgb 7.8 L, Hct 25.3 L, MCV 112.9 H, MCH 34.8 H, MCHC 30.8 L, Plt Count 97 L, MPV 10.7, Immature Gran % (Auto) 0.300, Neut % (Auto) 73.4 H, Lymph % (Auto) 13.3 L, [place] % (Auto) 10.9 H, Eos % (Auto) 1.6, Baso % (Auto) 0.5, Absolute Neuts (auto) 2.7, Nucleated RBC % 0, Sodium 145, Potassium 5.7 H, Chloride 119 H, Carbon Dioxide 21.0, Anion Gap 5, BUN 47 H , Creatinine 2.50 H, Est GFR (MDRD) Af Amer 32 L, Est GFR (MDRD) Non-Af 26 L, BUN/Creatinine Ratio 18.8, Glucose 84, Calcium 8.9 06/20/23 07:25: Sodium 143, Potassium 6.0 H*, Chloride 119 H, Carbon Dioxide 22.0, Anion Gap 2 L, BUN 51 H, Creatinine 2.59 H, Est GFR (MDRD) Af Amer 31 L, Est GFR (MDRD) Non-Af 25 L, BUN/Creatinine Ratio 19.7, Glucose 113 H, Calcium 9.3, Phosphorus 3.8, Magnesium 2.0, Total Bilirubin 0.40, Direct Bilirubin 0.14 06/20/23 13:45: Potassium 5.7 H Rhythm: EKG: ECHO: Stress Test: Cardiac Cath: PCI: CT Surgery: Holter monitor: EPS: PPM: CXR: Chest CT Scan: Radiography Diagnostic Testing: Radiology Impression Chest X-Ray 06/20/23 01:20 IMPRESSION: Nonspecific mediastinal left lower lung retrocardiac opacity which could represent atelectasis or airspace disease or overlapping shadows. Consider PA and lateral chest radiograph. Cardiomegaly with mild interstitial edema and small right effusion. Trace left effusion. Atelectasis or fluid along the right minor fissure. Electronically Signed: Cam Benson MD at 1:51 EST , Chest X-Ray 06/20/23 08:00 IMPRESSION: Mild cardiomegaly with blunting of both costophrenic angles and the atelectasis and/or early infiltrate at the left lung base. Electronically Signed: Apolinar Rosen MD at 8:16 EST ,
--- NOTE | 2023-06-20 14:21 | CON.PCM.CA_ITS ---
<Statement entered by Lakshmi Carpenter MD - 06/20/23 15:53> Pt seen & evaluated w/[facility]. I personally interviewed & exam the pt. I was involved in all aspects of pt's orders, interpretation of results & treatment Assessment & Plan Assessment/Plan (1) Severe sinus bradycardia: (2) Hypertension: (3) Hyperlipidemia: (4) Atherosclerotic heart disease of [place] coronary artery without angina pectoris: QUALIFIERS: [place] vs. transplanted heart: [place] heart Qualified Code(s): I25.10 - Atherosclerotic heart disease of [place] coronary artery without angina pectoris (5) Subclavian artery stenosis, left: (6) Atrial fibrillation: QUALIFIERS: Atrial fibrillation type: paroxysmal Qualified Code(s): I48.0 - Paroxysmal atrial fibrillation PLAN: Plan * With his bradycardiac recommend holding his BB and his amiodarone. Recommend that he have an event monitor on OP basis. * Bp is controlled on current medications. * Will follow up on OP. HPI Consult Data Date of Consult: 06/20/23 HPI Narrative HPI Narrative: EULOGIO NOGUERA, is a 82 M who presented to [facility] ER for increase in palpitations. He was noted to be hyperkalemic. During his hospital stay he was noted to be bradycardiac. His amiodarone and metoprolol has been held. He was last in the office 12/2022, He has a history of coronary artery disease status post drug-eluting stent to proximal/mid RCA April 2009, CABG x2 with ZARAGOZA to LAD and aorta to posterior descending coronary artery to reverse SVG in January 2017, paroxysmal atrial fibrillation/flutter, bilateral carotid artery disease, hypertension, and hyperlipidemia. He underwent a cardioversion on 05/09/2020. He underwent ROSI cardioversion during his hospitalization at [facility] September 2020. In August of 2020, patient was evaluated at [facility] emergency department in August 2020 for worsening shortness of breath. He was transferred to [facility] with CT surgery evaluation. He underwent VATS procedure for empyema. He was evaluated at [facility] in September 2020 for palpitations. His chest x-ray showed pneumothorax. Due to recent VATS procedure he was transferred to [facility]. He was evaluated to [facility] in October 2020 for syncope. He was treated for acute GI losses secondary to acute sepsis secondary to acute C. difficile colitis. He was transitioned to TCU. He was evaluated by certified physician assistant and Xarelto therapy was discontinued on account of anemia requiring packed red blood cell transfusion in April 2021. He was seen by oncologist, Dr. Mcintyre, and Protonix was discontinued. His hemoglobin slowly improved. He had presented to the emergency room in December of this year after a fall. He was noted to have a brain bleed, and hip fracture. He has not had any recent cardiac symptoms expect for his frequent falls [facility] Medical History Alcohol use Atherosclerotic heart disease of [place] coronary artery without angina pectoris Atrial fibrillation and flutter Cardiology follow-up encounter Carotid artery stenosis Dietary restriction Elevated troponin Emphysema of lung Essential hypertension Fever Former smoker Hematemesis/vomiting blood High cholesterol History of atrial fibrillation History of cardioversion (~05/09/20) History of coronary artery disease History of echocardiogram History of edema History of GI bleed History of right inguinal hernia History of stress test History of transesophageal echocardiography (ROSI) History of umbilical hernia Hx of ulcerative colitis Hypercholesterolemia Hyperlipidemia Hypertension Injury of head and neck USP (current) use 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 Mitral valve insufficiency PAD (peripheral artery disease) Premature atrial contractions Right carotid bruit Subclavian artery stenosis, left (~10/15/19) Thrombocytopenia Thrombocytopenia Thyroid disease Ulcerative colitis Upper GI bleed Upper GI bleed Walker as ambulation aid Wears glasses Wears hearing aid Home Medications ferrous sulfate 325 mg (65 mg iron) tablet 325 mg PO DAILY vitamin 05/28/15 [History Last Taken 05/09/20] vitamin B complex 1 each PO DAILY vitamin 02/07/16 [History Last Taken 05/09/20] levothyroxine 50 mcg tablet 75 mcg PO DAILY thyroid 06/13/20 [History Last Taken Unknown] acetaminophen 500 mg tablet 1,000 mg (2 x 500 mg) PO Q6H PRN PRN Pain Score 1-5 #0 tabs 12/19/22 [Rx Last Taken Unknown] aspirin 81 mg tablet,delayed release 81 mg PO DAILY 04/14/23 [History Last Taken Unknown] atorvastatin 40 mg tablet (Lipitor) 40 mg PO DAILY cholesterol #90 tabs 04/14/23 [Rx Last Taken Unknown] balsalazide 750 mg capsule (Colazal) 2,250 mg PO BID 04/14/23 [History Last Taken Unknown] hydralazine 50 mg tablet 50 mg PO BID 04/14/23 [History Last Taken Unknown] amiodarone 200 mg tablet See Rx Instructions .Route .COMPLEX #90 TABLETS 05/09/23 [Rx Last Taken Unknown] amlodipine 10 mg tablet 10 mg PO DAILY #90 tabs 05/20/23 [Rx Last Taken Unknown] carvedilol 3.125 mg tablet 3.125 mg PO BID heart #180 tabs 05/21/23 [Rx Last Taken Unknown] lisinopril 20 mg tablet 20 mg PO DAILY #90 tabs 05/21/23 [Rx Last Taken Unknown] ciprofloxacin HCl 750 mg tablet 750 mg PO BID 2 weeks #28 tabs 06/09/23 [Rx Last Taken Unknown] doxycycline hyclate 100 mg capsule 100 mg PO BID 2 weeks #28 caps 06/09/23 [Rx Last Taken Unknown] Allergy/AdvReac Type Severity Reaction Status Date / Time hydrochlorothiazide Allergy Severe Rash Verified 06/20/23 00:46 furosemide [From Lasix] Allergy Severe Verified 06/20/23 00:46 Rash Itchy lovastatin [From Mevacor] Allergy Rash Verified 06/20/23 00:46 Family History Father CAD (coronary artery disease) Mother Cancer breast Surgical History Aortocoronary bypass status (~02/12/17) History of cardiac catheterization History of hand surgery History of right inguinal hernia repair History of umbilical hernia repair History of vasectomy Hx of CABG Hx of colonoscopy Hx of esophagogastroduodenoscopy Hx of heart bypass surgery S/P right inguinal hernia repair S/P umbilical hernia repair, follow-up exam Status post insertion of drug-eluting stent into right coronary artery for coronary artery disease (~04/2009) Social History adopted: No household members: spouse housing: house number of children: 2 current occupational status: retired Smoking Status: Former smoker Tobacco: How many years used: 50 (stopped about 10 yrs ago) how long ago did patient quit smokin years ago alcohol intake: current alcohol intake frequency: 3 or more drinks per day Alcohol type: beer, wine and hard liquor substance use type: does not use caffeine: Yes Type: coffee Number of servings: 2 ROS ROS Narrative As in HPI and past medical history Physical Exam Const alert, oriented x3 and no apparent distress HEENT normocephalic, head/scalp atraumatic, hearing grossly normal bilaterally, ext ernal ears normal, external nose normal and moist oral mucous membranes Eyes PERRL, EOMs intact bilaterally, conjunctivae normal and no scleral icterus Neck no lymphadenopathy, supple and no JVD Resp normal respiratory effort, no use of accessory muscles and clear to auscultation bilaterally Cardio regular rate, regular rhythm, S1 normal heart sound, S2 normal heart sound, no rub, no gallops, no clicks, no JVD and peripheral pulses 2+ throughout Heart Sounds: murmur systolic II/ soft GI normal to inspection, nondistended, normoactive bowel sounds, soft to palpation, non-tender and non-distended Extremity normal to inspection, normal capillary refill, no clubbing, cyanosis or edema and no pedal edema Neuro oriented x3, CN's II-XII intact bilaterally, moves all extremities and no focal motor deficits Psych cooperative and affect normal Risk Stratification Risk Stratification Applicable: No Charges/Coding Visit Charges Office Visits / Consults: [id number] IP Consult L3 Objective Data Vital Signs: Vital Signs Temp Pulse Resp BP Pulse Ox O2 Del Method O2 Flow Rate 98.6 F 47 L 12 130/79 H 96 Nasal Cannula 2 06/20/23 08:26 06/20/23 08:26 06/20/23 08:26 06/20/23 08:26 06/20/23 09:00 06/20/23 09:00 06/20/23 09:00 Oxygen Flow Rate (L/min) 2 Oxygen Delivery Method Nasal Cannula Weight: 187 lb 9.814 oz Body Mass Index (BMI) 26.9 Intake & Output: Intake and Output for Last 24 Hours 06/18/23 06/19/23 06/20/23 23:59 23:59 23:59 Intake Total 1400 / 1400 Balance 1400 / 1400 Lab / Micro Data 06/20/23 01:18 06/20/23 13:45 Labs: Laboratory Results - last 24 hr 06/20/23 01:18: WBC 3.7 L, RBC 2.24 L, Hgb 7.8 L, Hct 25.3 L, MCV 112.9 H, MCH 34.8 H, MCHC 30.8 L, RDW Std Deviation 81.2 H, RDW Coeff of Chanel 19.5 H, Plt Count 97 L, MPV 10.7, Immature Gran % (Auto) 0.300, Neut % (Auto) 73.4 H, Lymph % (Auto) 13.3 L, [place] % (Auto) 10.9 H, Eos % (Auto) 1.6, Baso % (Auto) 0.5, Absolute Neuts (auto) 2.7, Absolute Lymphs (auto) 0.49 L, Nucleated RBC % 0, Differential Comment SCANNED, Diff Path Review Reviewed, Platelet Estimate MOD DEC, Anisocytosis 2+, Sodium 145, Potassium 5.7 H, Chloride 119 H, Carbon Dioxide 21.0, Anion Gap 5, BUN 47 H, Creatinine 2.50 H, Estim Creat Clear Calc 23.93, Est GFR (MDRD) Af Amer 32 L, Est GFR (MDRD) Non-Af 26 L, BUN/Creatinine Ratio 18.8, Glucose 84, Calcium 8.9, Troponin I High Sens 44 06/20/23 05:37: POC Glucose 40 L* 06/20/23 06:04: POC Glucose 135 H 06/20/23 07:25: Sodium 143, Potassium 6.0 H*, Chloride 119 H, Carbon Dioxide 22.0, Anion Gap 2 L, BUN 51 H, Creatinine 2.59 H, Estim Creat Clear Calc 23.10, Est GFR (MDRD) Af Amer 31 L, Est GFR (MDRD) Non-Af 25 L, BUN/Creatinine Ratio 19.7, Glucose 113 H, Calcium 9.3, Phosphorus 3.8, Magnesium 2.0, Total Bilirubin 0.40, Direct Bilirubin 0.14, AST 37, ALT 14 L, Alkaline Phosphatase 108, Troponin I High Sens 71, Total Protein 5.5 L, Albumin 3.0 L, Globulin 2.5 06/20/23 08:55: POC Glucose 150 H 06/20/23 13:45: Potassium 5.7 H, Total Creatine Kinase 53 Cardiology Labs/Tests 06/20/23 01:18: WBC 3.7 L, RBC 2.24 L, Hgb 7.8 L, Hct 25.3 L, MCV 112.9 H, MCH 34.8 H, MCHC 30.8 L, Plt Count 97 L, MPV 10.7, Immature Gran % (Auto) 0.300, Neut % (Auto) 73.4 H, Lymph % (Auto) 13.3 L, [place] % (Auto) 10.9 H, Eos % (Auto) 1.6, Baso % (Auto) 0.5, Absolute Neuts (auto) 2.7, Nucleated RBC % 0, Sodium 145, Potassium 5.7 H, Chloride 119 H, Carbon Dioxide 21.0, Anion Gap 5, BUN 47 H , Creatinine 2.50 H, Est GFR (MDRD) Af Amer 32 L, Est GFR (MDRD) Non-Af 26 L, BUN/Creatinine Ratio 18.8, Glucose 84, Calcium 8.9 06/20/23 07:25: Sodium 143, Potassium 6.0 H*, Chloride 119 H, Carbon Dioxide 22.0, Anion Gap 2 L, BUN 51 H, Creatinine 2.59 H, Est GFR (MDRD) Af Amer 31 L, Est GFR (MDRD) Non-Af 25 L, BUN/Creatinine Ratio 19.7, Glucose 113 H, Calcium 9.3, Phosphorus 3.8, Magnesium 2.0, Total Bilirubin 0.40, Direct Bilirubin 0.14 06/20/23 13:45: Potassium 5.7 H Radiography Diagnostic Testing: Radiology Impression Chest X-Ray 06/20/23 01:20 IMPRESSION: Nonspecific mediastinal left lower lung retrocardiac opacity which could represent atelectasis or airspace disease or overlapping shadows. Consider PA and lateral chest radiograph. Cardiomegaly with mild interstitial edema and small right effusion. Trace left effusion. Atelectasis or fluid along the right minor fissure. Electronically Signed: Cam Benson MD at 1:51 EST Reading Location ID and State: [facility] / [place] Tel , Service support , Chest X-Ray 06/20/23 08:00 IMPRESSION: Mild cardiomegaly with blunting of both costophrenic angles and the atelectasis and/or early infiltrate at the left lung base. Electronically Signed: Apolinar Rosen MD at 8:16 EST ,
[2023-06-20] MEDS: BALSALAZIDE DISODIUM 750 MG CAPSULE 2250 MG PO (21:20)
[2023-06-20] MEDS: Atorvastatin Calcium 40 MG Tablet PO (21:20)
[2023-06-21] VITALS (10 sets, daily range): BP systolic 127–145; BP diastolic 57–64; PULSE 61–69; RESP 16–18; TEMP 36.6–36.9; O2SAT 84–100
[2023-06-21] MEDS: Sodium Bicarbonate 150 MEQ in Dextrose 5%-Water (1000mL Bag) 1,000 ML 75 MEQ IV (04:32)
[2023-06-21] MEDS: Levothyroxine 75 MCG Tablet PO (05:28)
[2023-06-21 06:13] LABS: Absolute Lymphocyte Count 0.53 X10^3/uL (0.83-4.51); Absolute Neutrophil Count 3.1 X10^3/uL (2.0-7.7); Basophil# 0.01 X10^3/uL; Basophil% 0.2 % (0-1); Eosinophil# 0.04 X10^3/uL; Hematocrit 23.2 % (40-54); Hemoglobin 7.1 g/dL (13.0-16.5); Immature Platelet Fraction 3.7 % (1.0-7.9); Lymphocyte # 0.53 X10^3/ul (0.83-4.51); Lymphocyte % 12.9 % (19-41); Mean Corp Hgb Conc 30.6 g/dL (32-36); Mean Corpuscular Volume 114.3 fL (80-94); Mean Platelet Vol. 10.5 fl (6.2-12.0); Monocyte# 0.39 X10^3/uL; Monocyte% 9.5 % (0-10); NRBC Flagged by Analyzer 0 % (0-5); Neutrophil # 3.11 X10^3/uL (2.7-7.7); Neutrophil % 75.7 % (47-70); POSITIVE COUNT YES; POSITIVE DIFFERENTIAL YES; POSITIVE MORPHOLOGY YES; Platelet Count 89 K/mm3 (150-450); RBC Distribution Width SD 80.1 fl (35.1-43.9); RET-HE 29.7 pg (30-35); Red Blood Count 2.03 M/mm3 (4.6-6.2); Reticulocyte Count 2.81 % (0.5-1.5); White Blood Count 4.1 K/mm3 (4.4-11.0)
[2023-06-21 06:16] LABS: Differential Indicated SCAN CRITERIA MET
[2023-06-21 06:25] LABS: Differential Comment SCANNED
[2023-06-21 06:27] LABS: Anisocytosis 2+; Macrocytosis 2+; Microcytosis 1+; Ovalocyte RARE
[2023-06-21 06:37] LABS: Albumin, Serum 2.7 g/dL (3.2-5.0); Anion Gap 5 (5-15); BUN 52 mg/dL (7-18); BUN/Creat Ratio 21.4 RATIO (10-20); Chloride 117 mmol/L (98-107); Creatinine, Serum 2.43 mg/dL (0.70-1.30); EST Glomerular Filtration Rate 27 mL/min (>60); Est Glom Filt Rate - Afr Amer 33 mL/min (>60); Estimated Creatinine Clearance 24.62 ml/min; Glucose 95 mg/dL (74-106); Potassium 5.4 mmol/L (3.5-5.1); Sodium Level 145 mmol/L (136-145); T4 Free Direct 1.17 ng/dL (0.76-1.46); Thyroid Stim Hormone (TSH) 1.61 uIU/mL (0.358-3.74)
--- NOTE | 2023-06-21 10:35 | PN_ITS ---
Subjective Subjective Patient seen and examined. He was coughing frequently when I reviewed him and said he had choked on his food. He felt short of breath from the choking. He denied any fever, chills, palpitations, dizziness or any other symptoms. He denies choking at home when eating, and feels he just choked on his food. His oxygen had to be bumped up to 8L afterwards. Objective Data Objective Data Vital Signs: Vital Signs Temp Pulse Resp BP Pulse Ox O2 Del Method O2 Flow Rate 98 F 66 18 134/57 H 93 High Flow 8 06/21/23 10:10 06/21/23 10:10 06/21/23 10:10 06/21/23 10:10 06/21/23 10:19 06/21/23 10:19 06/21/23 10:19 Oxygen Flow Rate (L/min) 8 Oxygen Delivery Method High Flow Weight: 187 lb 9.814 oz Body Mass Index (BMI) 26.9 Intake & Output: Intake and Output for Last 24 Hours 06/19/23 06/20/23 06/21/23 23:59 23:59 23:59 Intake Total 2518.33 / 2538.33 871.67 / 871.67 Output Total 400 / 400 400 / 400 Balance 2118.33 / 2138.33 471.67 / 471.67 Lab / Micro Data 06/21/23 05:57 06/21/23 05:57 Labs: Laboratory Results - last 24 hr 06/20/23 01:18: Diff Path Review Reviewed 06/20/23 07:25: Total Bilirubin 0.40, Direct Bilirubin 0.14, AST 37, ALT 14 L, Alkaline Phosphatase 108, Total Protein 5.5 L, Albumin 3.0 L, Globulin 2.5 06/20/23 13:45: Potassium 5.7 H, Total Creatine Kinase 53 06/21/23 05:57: WBC 4.1 L, RBC 2.03 L, Hgb 7.1 L, Hct 23.2 L, MCV 114.3 H, MCH 35.0 H, MCHC 30.6 L, RDW Std Deviation 80.1 H, RDW Coeff of Chanel 19.0 H, Plt Count 89 L, MPV 10.5, Immature Gran % (Auto) 0.700, Neut % (Auto) 75.7 H, Lymph % (Auto) 12.9 L, [place] % (Auto) 9.5, Eos % (Auto) 1.0, Baso % (Auto) 0.2, Absolute Neuts (auto) 3.1, Absolute Lymphs (auto) 0.53 L, Nucleated RBC % 0, Differential Comment SCANNED, Diff Path Review May , Immature Plt Fraction 3.7, Anisocytosis 2+, Microcytosis 1+, Macrocytosis 2+, Ovalocytes RARE, Retic Count 2.81 H, Immature Retic Fraction 11.10, Retic Hgb Equivalent 29.7 L, Sodium 145, Potassium 5.4 H, Chloride 117 H, Carbon Dioxide 23.0, Anion Gap 5, BUN 52 H , Creatinine 2.43 H, Estim Creat Clear Calc 24.62, Est GFR (MDRD) Af Amer 33 L, Est GFR (MDRD) Non-Af 27 L, BUN/Creatinine Ratio 21.4 H, Glucose 95, Calcium 8.0 L, Phosphorus 4.0, Albumin 2.7 L, TSH 1.61, Free T4 1.17 Physical Exam Const alert and oriented x3 Constitutional Narrative: in moderate distress due to cough and choking. General Appearance: cooperative HEENT normocephalic and head/scalp atraumatic Mouth: dry mucous membranes Eyes PERRL and EOMs intact bilaterally Neck no lymphadenopathy, supple and no JVD Lymph Lymphatic: no lymphadenopathy noted and no lymphedema noted Resp Resp Narrative: moderately diminished breath sounds bibasally; bilateral crackles. On 8L of oxygen by nasal canula Cardio regular rate, regular rhythm, S1 normal heart sound, S2 normal heart sound and no murmurs GI normal to inspection, nondistended, normoactive bowel sounds, soft to palpation and non-tender Extremity normal capillary refill and no clubbing, cyanosis or edema General Extremity: no tenderness to palpation of joints or extremities Skin General Skin Exam: no breakdown Neuro CN's II-XII intact bilaterally, no focal motor deficits, no sensory deficits noted and deep tendon reflexes 2+ bilaterally Motor Exam: strength 5/5 throughout and general weakness Psych thought process normal and cooperative Appearance: appropriate Assessment & Plan Assessment/Plan (1) General weakness: (2) Debility: (3) Acute respiratory failure with hypoxia: (4) Aspiration pneumonia: PLAN: Plan #Acute hypoxic respiratory failure due to probable aspiration pneumonia * patient noted to be choking on his food today. * required oxygen up to 8L * keep NPO now. * CXR ordered. CXR ordered yesterday showed mild cardiomegaly with blunting of both costophrenic angles and the atelectasis and/or infiltrate at the left lung base. Patient not on antibiotics * start on zosyn due to concern for aspiration. CXR ordered. * titrate oxygen to maintain sats >90% * speech therapy consult. * consult pulmonology if shortness of breath doesnt improve * #Sinus bradycardia * had first degree AV block also. troponins were negative * carvedilol adn amiodarone on hold * cardiology on board * has known EF of 60%, with RVSP of severe pulmonary hypertension. * carvedilol and amiodarone on hold. * #CAD s/p CABG and stents; on aspirin and high intensity statin. Beta anna on hold. #CKD IV with hyperkalemia: potassium is 5.4. Will give kayexalate. nephrology on board. on bicarb drip. hold all nephrotoxic meds. Cr today is 2.43 #Pancytopenia: wbc today is 4.1, with hb of 7.1 and platelets of 89. baseline Hb is ~ 8-9. Will repeat Hb and transfuse if Hb <7. #Ulcerative colitis: on colazal #Hypothyroidism: on synthroid #Hyperlipidemia: on statin #Debility due to frequent falls: PT/OT on board. Fall precautions #History of COPD and emphysema: on had pneumothorax in August 2020 and was sen at [facility] for CT evaluation. Had VATS. DVT prophylaxis; SCDs Charges/Coding Visit Charges Inpatient E&M: 65792 Subs Hosp L3
[2023-06-21 10:37] LABS: Allen Test Positive; Base Excess -2 mmol/L (-2 to +2); Bicarbonate 23.2 mmol/L (22-26); Blood Gas Specimen Type ART; Mode Not entered; O2 Delivery Device HFNC; PO2 52 mmHG (75-100); SITE L Radial; SO2 86 % (95-99); Total Carbon Dioxide 24 mmol/L; pCO2 39.1 mmHg (35-45); pH 7.38 (7.35-7.45)
[2023-06-21] MEDS: BALSALAZIDE DISODIUM 750 MG CAPSULE 2250 MG PO ×2 (10:38→21:38)
[2023-06-21] MEDS: Aspirin E.C. 81 MG Tablet PO (10:38)
[2023-06-21] MEDS: Sodium Polystyrene Sulfonate 15 GM/60 ML UDC 30 GM PO (10:39)
[2023-06-21] MEDS: Piperacil/Tazobactam 3.375 GM in 0.9% Normal Saline (50mL MB+) 50 ML IV ×2 (12:57→21:40)
[2023-06-21] MEDS: Ferrous Sulfate 325 MG Tablet PO (13:05)
[2023-06-21 13:08] LABS: BNP,B-Type NATRIURETIC PEPTIDE 976.4 pg/mL (0-100)
--- NOTE | 2023-06-21 13:55 | RAD_ITS ---
STUDY: X-RAY CHEST REASON FOR EXAM: Male, 82 years old. possible aspiration -- portable TECHNIQUE: PA and lateral views of the chest. COMPARISON: 06/20/2023 FINDINGS: Status post median sternotomy. The lungs are clear and expanded. Small bilateral pleural effusions with bibasilar atelectasis. Fluid in the minor fissure the right lung. There is moderate cardiac enlargement. Normal mediastinum and aidan. Normal visualized pulmonary arteries. Normal visualized aortic arch and descending thoracic aorta. Normal visualized thoracic spine. Normal visualized ribs, clavicles, and shoulders. There is no demonstrated abnormality of the visualized soft tissue structures of the upper abdomen. RAD/Chest PA and Lateral IMPRESSION: Small bilateral pleural effusions with bibasilar atelectasis. Cardiomegaly. Electronically Signed: Mayank Haddad MD at 14:49 EST ,
[2023-06-21] MEDS: Bumetanide 1 MG/4 ML Vial IV ×2 (14:18→18:28)
[2023-06-21] MEDS: 0.9% Saline Lock 10 ML Syringe IV (18:28)
--- NOTE | 2023-06-21 21:28 | CPS ---
[2044] Pt. was asked if he wears a BiPAP or CPAP at home for sleep apnea. Pt. denies use of PAP machine. Pt.'s 8L NC decreased to 6L NC. Pt.'s oxygenation is appropriate at this time with no signs of distress.
[2023-06-21] MEDS: Atorvastatin Calcium 40 MG Tablet PO (21:39)
[2023-06-22] VITALS (7 sets, daily range): BP systolic 128–159; BP diastolic 58–87; PULSE 57–64; RESP 16–18; TEMP 36.4–36.7; O2SAT 92–94
[2023-06-22] MEDS: Levothyroxine 75 MCG Tablet PO (05:33)
[2023-06-22] MEDS: Piperacil/Tazobactam 3.375 GM in 0.9% Normal Saline (50mL MB+) 50 ML IV ×3 (05:33→22:45)
--- NOTE | 2023-06-22 08:29 | EX.PCM.CONCC ---
Assessment & Plan Assessment/Plan (1) Acute respiratory failure with hypoxia: (2) Pancytopenia: PLAN: Plan RECOMMENDATIONS: 1. Continue diuresis as tolerated 2. Speech/swallow precautions 3. Wean oxygen as tolerated 4. Continue bronchodilators as needed only, but doubt need for systemic steroids 5. Consider Trendelenburg positioning to avoid aspiration if demands lying flat 6. Okay to discontinue antibiotics if culture negative at 48 hours 7. Walking oximetry prior to discharge IMPRESSIONS: 1. Acute hypoxic respiratory failure Unclear etiology at this time. Patient with significantly elevated oxygen requirements yesterday that improved with Bumex therapy. Patient did have an elevated BNP on presentation. Patient is being seen by cardiology. Patient does have a previous PFT suggesting possible mixed ventilatory defect with a component of COPD. A CT scan completed in 2020 did not have fibrotic changes noted suggesting fluid as a possibility for restriction on PFT. As needed bronchodilators likely sufficient at this time. Patient does have significant pulmonary hypertension and this may be secondary to failure to comply with supplemental oxygen. Would recommend patient be in a Trendelenburg position to avoid aspiration. Okay to continue with antibiotics for now, but these can likely be discontinued at 48 hours if patient remains afebrile and culture negative. ABG is not suggestive of CO2 retention at baseline. 2. Acute diastolic CHF with pulmonary hypertension Patient with elevated BNP on presentation. Patient did have some sinus bradycardia on presentation, but was on carvedilol and amiodarone at baseline. But heart rate appears to be better controlled at this time. Cardiology has been consulted. Patient is on aspirin and high intensity statin. Clinical suspicion that an element of pulmonary hypertension may be secondary to noncompliance with supplemental oxygen. Patient would have to have a right heart catheterization for quantification/classification of pulmonary hypertension once at baseline. Patient will need a walking oximetry prior to discharge as significant desaturation can be found with ambulation in the setting of pulmonary hypertension 3. CKD with hyperkalemia Patient did receive Kayexalate yesterday. Await nephrology recommendations moving forward. Baseline creatinine appears to be approximately 2 and patient presented with a creatinine of 2.5. No indication for renal replacement therapy as hyperkalemia has been responsive to conservative therapy. 4. Hypothyroidism/hyperlipidemia/frequent falls/advanced age/poor historian/pancytopenia Complicates care, management, recovery and prognosis. CODE STATUS has been verified is DNR/DNI. Patient should have therapy evaluate. Peripheral vascular disease likely has led to some proprioceptive issues. Previous workup for pancytopenia has been negative HPI Consult Data Date of Consult: 06/22/23 HPI Narrative Reason for Consultation: Hypoxia HPI Narrative: EULOGIO NOGUERA is an 82 M, with past medical history listed below, who presents to [facility] on 06/20/2023 secondary to progressive palpitations and shortness of breath. Patient reportedly had not been feeling well for 3 days prior to presentation. Patient states that on the day of presentation he had a fall was able to get up. However, overnight he started to have palpitations with a heart rate of 500 and EMS was called. EMS had placed him on oxygen. Patient denied any fever, chills, chest pain, nausea or vomiting at that time. In the ER, patient was afebrile, but tachypneic at 20 breaths/min. Patient had a heart rate of 60 and was normotensive. Patient was initially tolerating room air, but just prior to admission became hypotensive with a blood pressure of 91/45 and 86% on room air. Laboratory data at that time showed a white blood cell count of 3.7, hemoglobin of 7.8 and platelets of 97. Chemistry showed an elevated potassium of 5.7, BUN of 47 and creatinine of 2.5. Patient's initial troponin was unremarkable, but glucose was noted to be 40 on repeat check. Chest x-ray showed a nonspecific left retrocardiac infiltrate. EKG showed a sinus rhythm with a first-degree AV block. Patient was treated for hyperkalemia medically with some improvement. Upon rising patient was noted to be lightheaded and hypoglycemic. Patient was given a dose of IV dextrose with improvement. Patient was admitted to the floor for further evaluation. Yesterday, patient required 10 L/min of supplemental oxygen to maintain saturations, so a pulmonary consult was obtained. Patient states he feels much improved today. Patient is lying flat with a very gurgly voice. Patient states he likes to lay like this as this leads to less back pain. Patient does admit that he was recently placed on Lasix therapy and this has given me new legs. Patient does report a history of smoking in the past, but quit sometime ago. 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 However, review of the electronic medical record shows patient did have a PFT in 2019 showing a moderate mixed ventilatory defect with a symmetric reduction diffusion capacity (FVC 81%, FEV1 67%, TLC 68%, DLCO 71%). Patient is not on any inhalers at this time. Electronic medical record also shows patient has had a recent echocardiogram in November showing an EF of 60% with moderate concentric LVH and severe pulmonary hypertension with a pulmonary pressure of 77 mmHg. Patient also noted to have severe mitral calcification. Patient is a relatively poor historian. It is unclear if patient is on baseline supplemental oxygen. Patient does state that he has been admitted in [place] previously. Patient does report a history of pleural effusions, but is unaware of when the last tap was necessary. Patient also has a history of chronic kidney disease and believes he is doing okay. Given limitations, review of systems otherwise negative from a constitutional, HEENT, respiratory, cardiovascular, GI, genitourinary, musculoskeletal, skin, neurologic, psychiatric and hematologic system unless stated above. [facility] Medical History Alcohol use Atherosclerotic heart disease of [place] coronary artery without angina pectoris Atrial fibrillation and flutter Cardiology follow-up encounter Carotid artery stenosis Dietary restriction Elevated troponin Emphysema of lung Essential hypertension Fever Former smoker Hematemesis/vomiting blood High cholesterol History of atrial fibrillation History of cardioversion (~05/09/20) History of coronary artery disease History of echocardiogram History of edema History of GI bleed History of right inguinal hernia History of stress test History of transesophageal echocardiography (ROSI) History of umbilical hernia Hx of ulcerative colitis Hypercholesterolemia Hyperlipidemia Hypertension Injury of head and neck long-term (current) use 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 Mitral valve insufficiency PAD (peripheral artery disease) Premature atrial contractions Right carotid bruit Subclavian artery stenosis, left (~10/15/19) Thrombocytopenia Thrombocytopenia Thyroid disease Ulcerative colitis Upper GI bleed Upper GI bleed Walker as ambulation aid Wears glasses Wears hearing aid Home Medications ferrous sulfate 325 mg (65 mg iron) tablet 325 mg PO DAILY vitamin 05/28/15 [History Last Taken 05/09/20] vitamin B complex 1 each PO DAILY vitamin 02/07/16 [History Last Taken 05/09/20] levothyroxine 50 mcg tablet 75 mcg PO DAILY thyroid 06/13/20 [History Last Taken Unknown] acetaminophen 500 mg tablet 1,000 mg (2 x 500 mg) PO Q6H PRN PRN Pain Score 1-5 #0 tabs 12/19/22 [Rx Last Taken Unknown] aspirin 81 mg tablet,delayed release 81 mg PO DAILY 04/14/23 [History Last Taken Unknown] atorvastatin 40 mg tablet (Lipitor) 40 mg PO DAILY cholesterol #90 tabs 04/14/23 [Rx Last Taken Unknown] balsalazide 750 mg capsule (Colazal) 2,250 mg PO BID 04/14/23 [History Last Taken Unknown] hydralazine 50 mg tablet 50 mg PO BID 04/14/23 [History Last Taken Unknown] amiodarone 200 mg tablet See Rx Instructions .Route .COMPLEX #90 TABLETS 05/09/23 [Rx Last Taken Unknown] amlodipine 10 mg tablet 10 mg PO DAILY #90 tabs 05/20/23 [Rx Last Taken Unknown] carvedilol 3.125 mg tablet 3.125 mg PO BID heart #180 tabs 05/21/23 [Rx Last Taken Unknown] lisinopril 20 mg tablet 20 mg PO DAILY #90 tabs 05/21/23 [Rx Last Taken Unknown] ciprofloxacin HCl 750 mg tablet 750 mg PO BID 2 weeks #28 tabs 06/09/23 [Rx Last Taken Unknown] doxycycline hyclate 100 mg capsule 100 mg PO BID 2 weeks #28 caps 06/09/23 [Rx Last Taken Unknown] Allergy/AdvReac Type Severity Reaction Status Date / Time hydrochlorothiazide Allergy Severe Rash Verified 06/20/23 00:46 furosemide [From Lasix] Allergy Severe Verified 06/20/23 00:46 Rash Itchy lovastatin [From Mevacor] Allergy Rash Verified 06/20/23 00:46 Family History Father CAD (coronary artery disease) Mother Cancer breast Surgical History Aortocoronary bypass status (~02/12/17) History of cardiac catheterization History of hand surgery History of right inguinal hernia repair History of umbilical hernia repair History of vasectomy Hx of CABG Hx of colonoscopy Hx of esophagogastroduodenoscopy Hx of heart bypass surgery S/P right inguinal hernia repair S/P umbilical hernia repair, follow-up exam Status post insertion of drug-eluting stent into right coronary artery for coronary artery disease (~04/2009) Social History adopted: No household members: spouse housing: house number of children: 2 current occupational status: retired Smoking Status: Former smoker Tobacco: How many years used: 50 (stopped about 10 yrs ago) how long ago did patient quit smokin years ago alcohol intake: current alcohol intake frequency: 3 or more drinks per day Alcohol type: beer, wine and hard liquor substance use type: does not use caffeine: Yes Type: coffee Number of servings: 2 ROS ROS Narrative See HPI Physical Exam Const alert and oriented x3 Constitutional Narrative: Wet gurgly voice noted. Does improve with clearing of throat. Lying flat on my evaluation General Appearance: cooperative HEENT normocephalic; Negative for head/scalp atraumatic HEENT Narrative: Abrasion noted on right cheek Mouth: oral and palatal mucosa normal Eyes PERRL, EOMs intact bilaterally and no scleral icterus Eyes Narrative: Slight scleral injection noted Neck no lymphadenopathy, supple and no JVD Lymph Lymphatic: no lymphadenopathy noted and no lymphedema noted Resp Resp Narrative: Unable to listen posteriorly secondary to body position Auscultation: diminished lung sounds; Negative for rales, rhonchi or wheezes Cardio regular rhythm, S1 normal heart sound, S2 normal heart sound, no murmurs, no rub and no gallops Rate: bradycardia GI normal to inspection, nondistended, normoactive bowel sounds, soft to palpation and non-tender Extremity normal capillary refill and no clubbing, cyanosis or edema Extremity Narrative: Lower extremities wrapped General Extremity: no tenderness to palpation of joints or extremities Skin General Skin Exam: no breakdown Neuro CN's II-XII intact bilaterally, no focal motor deficits and no sensory deficits noted Psych thought process normal and cooperative Appearance: appropriate Medical Records Data Attestation: I reviewed the patient's medical records (See HPI) Lab / Micro Data Attestation: I reviewed the patient's lab results. 06/21/23 05:57 06/21/23 05:57 Labs: Laboratory Results - last 24 hr 06/21/23 05:57: B-Natriuretic Peptide 976.4 H ABG Data ABG results: ABG 06/21/23 10:34 Specimen Type ART Sample Site L Radial pH 7.38 Bicarbonate Actual 23.2 Total CO2 24 Base Excess -2 O2 Saturation 86 L O2 % 8.0 ABG pCO2 39.1 ABG pO2 52 L Britton Test Positive O2 Delivery Device HFNC Vent Mode Not entered Attestation: I personally reviewed and interpreted this ABG as follows: (Normal acid-base with increased AA gradient) Imagaing Radiology Impression Chest X-Ray 06/21/23 13:55 IMPRESSION: Small bilateral pleural effusions with bibasilar atelectasis. Cardiomegaly. Electronically Signed: Mayank Haddad MD at 14:49 EST , Charges/Coding Visit Charges Inpatient E&M: 93861 Init Hosp L3
[2023-06-22 08:56] LABS: Absolute Neutrophil Count 2.4 X10^3/uL (2.0-7.7); Basophil# 0.02 X10^3/uL; Basophil% 0.6 % (0-1); Eosinophil# 0.09 X10^3/uL; Eosinophils% 2.6 % (0-5); Hematocrit 23.9 % (40-54); Hemoglobin 7.2 g/dL (13.0-16.5); Lymphocyte % 17.2 % (19-41); Mean Corp Hgb Conc 30.1 g/dL (32-36); Mean Corpuscular Hgb 34.3 pg (27.0-32.0); Mean Corpuscular Volume 113.8 fL (80-94); Mean Platelet Vol. 10.8 fl (6.2-12.0); Monocyte# 0.41 X10^3/uL; Monocyte% 11.7 % (0-10); NRBC Flagged by Analyzer 0 % (0-5); Neutrophil # 2.36 X10^3/uL (2.7-7.7); Neutrophil % 67.6 % (47-70); POSITIVE COUNT YES; POSITIVE DIFFERENTIAL YES; POSITIVE MORPHOLOGY YES; Platelet Count 83 K/mm3 (150-450); RBC Distribution Width CV 19.2 % (11.6-14.6); RBC Distribution Width SD 80.4 fl (35.1-43.9); White Blood Count 3.5 K/mm3 (4.4-11.0)
[2023-06-22 09:07] LABS: Differential Indicated SCAN CRITERIA MET
[2023-06-22 09:17] LABS: Anion Gap 4 (5-15); BUN 51 mg/dL (7-18); Calcium,Total 8.6 mg/dL (8.5-10.1); Chloride 113 mmol/L (98-107); Creatinine, Serum 2.32 mg/dL (0.70-1.30); EST Glomerular Filtration Rate 29 mL/min (>60); Est Glom Filt Rate - Afr Amer 35 mL/min (>60); Estimated Creatinine Clearance 25.78 ml/min; Glucose 90 mg/dL (74-106); Potassium 4.6 mmol/L (3.5-5.1); Sodium Level 144 mmol/L (136-145)
[2023-06-22 09:37] LABS: Differential Comment SCANNED
[2023-06-22 09:38] LABS: Anisocytosis 2+; Macrocytosis 1+; Microcytosis 1+; Platelet Estimate MOD DEC (ADEQ)
[2023-06-22] MEDS: 0.9% Saline Lock 10 ML Syringe IV ×2 (09:47→21:02)
[2023-06-22] MEDS: Aspirin E.C. 81 MG Tablet PO (09:48)
[2023-06-22] MEDS: BALSALAZIDE DISODIUM 750 MG CAPSULE 2250 MG PO ×2 (09:48→20:38)
[2023-06-22] MEDS: Bumetanide 1 MG/4 ML Vial IV ×2 (09:48→17:15)
--- NOTE | 2023-06-22 10:49 | PN_ITS ---
Subjective Subjective Patient seen and examined. He feels much better today. He had an uneventful night and is down to 4L today. He still has an occasional cough but otherwise feels much better. Review of systems is otherwise negative. Objective Data Objective Data Vital Signs: Vital Signs Temp Pulse Resp BP Pulse Ox O2 Del Method O2 Flow Rate 97.6 F L 61 16 128/72 H 93 Nasal Cannula 4 06/22/23 09:40 06/22/23 09:40 06/22/23 09:40 06/22/23 09:40 06/22/23 09:40 06/22/23 09:40 06/22/23 09:40 Oxygen Flow Rate (L/min) 4 Oxygen Delivery Method Nasal Cannula Weight: 187 lb 9.814 oz Body Mass Index (BMI) 26.9 Intake & Output: Intake and Output for Last 24 Hours 06/20/23 06/21/23 06/22/23 23:59 23:59 23:59 Intake Total 2518.33 / 2538.33 2359.17 / 2359.17 400 / 400 Output Total 400 / 400 400 / 400 400 / 400 Balance 2118.33 / 2138.33 1959.17 / 1959.17 0 / 0 Lab / Micro Data 06/22/23 08:37 06/22/23 08:37 Labs: Laboratory Results - last 24 hr 06/21/23 05:57: B-Natriuretic Peptide 976.4 H 06/22/23 08:37: WBC 3.5 L, RBC 2.10 L, Hgb 7.2 L, Hct 23.9 L, MCV 113.8 H, MCH 34.3 H, MCHC 30.1 L, RDW Std Deviation 80.4 H, RDW Coeff of Chanel 19.2 H, Plt Count 83 L, MPV 10.8, Immature Gran % (Auto) 0.300, Neut % (Auto) 67.6, Lymph % (Auto) 17.2 L, [place] % (Auto) 11.7 H, Eos % (Auto) 2.6, Baso % (Auto) 0.6, Absolute Neuts (auto) 2.4, Absolute Lymphs (auto) 0.60 L, Nucleated RBC % 0, Differential Comment SCANNED, Diff Path Review May foll, Platelet Estimate MOD DEC, Anisocytosis 2+, Microcytosis 1+, Macrocytosis 1+, Sodium 144, Potassium 4.6, Chloride 113 H, Carbon Dioxide 27.0, Anion Gap 4 L, BUN 51 H, Creatinine 2 .32 H, Estim Creat Clear Calc 25.78, Est GFR (MDRD) Af Amer 35 L, Est GFR (MDRD) Non-Af 29 L, BUN/Creatinine Ratio 22.0 H, Glucose 90, Calcium 8.6 Radiography Diagnostic Testing: Radiology Impression Chest X-Ray 06/21/23 13:55 IMPRESSION: Small bilateral pleural effusions with bibasilar atelectasis. Cardiomegaly. Electronically Signed: Mayank Haddad MD at 14:49 EST , Physical Exam Const alert, oriented x3 and no apparent distress General Appearance: cooperative HEENT normocephalic and head/scalp atraumatic Eyes PERRL and EOMs intact bilaterally Neck no lymphadenopathy, supple and no JVD Lymph Lymphatic: no lymphadenopathy noted and no lymphedema noted Resp Resp Narrative: moderately diminished breath sounds bibasally; bilateral crackles. On 8L of oxygen by nasal canula Cardio regular rate, regular rhythm, S1 normal heart sound, S2 normal heart sound and no murmurs GI normal to inspection, nondistended, normoactive bowel sounds, soft to palpation and non-tender Extremity normal capillary refill and no clubbing, cyanosis or edema General Extremity: no tenderness to palpation of joints or extremities Skin General Skin Exam: no breakdown Neuro CN's II-XII intact bilaterally, no focal motor deficits, no sensory deficits noted and deep tendon reflexes 2+ bilaterally Motor Exam: strength 5/5 throughout and general weakness Psych thought process normal and cooperative Appearance: appropriate Assessment & Plan Assessment/Plan (1) General weakness: (2) Debility: (3) Acute respiratory failure with hypoxia: (4) Aspiration pneumonia: PLAN: Plan #Acute hypoxic respiratory failure due to probable aspiration pneumonia * patient noted to be choking on his food today. * now down to 4L of oxygen. Required up to 10L yesterday * speech therapy evaluated him and he was cleared for oral intake. * CXR done showed no evidence of pneumonia and showed small bilateral pleural effusion siwth bibasilar atelectasis * CXR ordered on admission showed mild cardiomegaly with blunting of both costophrenic angles and the atelectasis and/or infiltrate at the left lung base. * on zosyn due to concern for aspiration. * titrate oxygen to maintain sats >90% * pulmonology consulted yesterday due to worsening respiratory status. * #Sinus bradycardia * had first degree AV block also. troponins were negative * carvedilol adn amiodarone on hold * cardiology on board * has known EF of 60%, with RVSP of severe pulmonary hypertension. * carvedilol and amiodarone on hold. * #CAD s/p CABG and stents; on aspirin and high intensity statin. Beta anna on hold. #CKD IV with hyperkalemia: hyperkalemia resolved with treatmwnt. Cr is 2.32 today. #Pancytopenia: * wbc today is 3.5, with hb of 7.2 and platelets of 83. baseline Hb is ~ 8-9. * Aetiology is unclear. Will check stool for occult blood for anemia. Check iron profile also. * Monitor Hb and transfuse if Hb <7. #Ulcerative colitis: on colazal #Hypothyroidism: on synthroid #Hyperlipidemia: on statin #Debility due to frequent falls: PT/OT on board. Fall precautions #History of COPD and emphysema: on had pneumothorax in August 2020 and was sen at [facility] for CT evaluation. Had VATS. DVT prophylaxis; SCDs Charges/Coding Visit Charges Inpatient E&M: 82418 Subs Hosp L2
[2023-06-22 11:25] LABS: Ferritin 399 ng/mL (26-388); Iron 34 ug/dL (65-175); Iron Binding Capacity,Total 204 ug/dL (250-450); PERCENT IRON SATURATION 16.7 % (15.0-55.0)
[2023-06-22] MEDS: Atorvastatin Calcium 40 MG Tablet PO (20:38)
[2023-06-23 05:00] VITALS: BP 159/58; PULSE 91; RESP 18; TEMP 36.7; O2SAT 94
[2023-06-23] MEDS: Levothyroxine 75 MCG Tablet PO (05:38)
[2023-06-23] MEDS: Piperacil/Tazobactam 3.375 GM in 0.9% Normal Saline (50mL MB+) 50 ML IV ×3 (05:38→22:50)
--- NOTE | 2023-06-23 06:12 | PN.CC_ITS ---
Assessment & Plan Assessment/Plan (1) Acute respiratory failure with hypoxia: (2) Pancytopenia: PLAN: Plan RECOMMENDATIONS: 1. Consider transition to p.o. diuretics 2. Continue speech/swallow precautions 3. Wean oxygen as tolerated 4. Continue bronchodilators as needed only, but doubt need for systemic steroids 5. Okay to discontinue antibiotics if culture negative at 48 hours 6. Walking oximetry prior to discharge IMPRESSIONS: 1. Acute hypoxic respiratory failure Unclear etiology at this time. Patient with significantly elevated oxygen requirements yesterday that improved with Bumex therapy. Patient did have an elevated BNP on presentation. Patient is being seen by cardiology. Patient does have a previous PFT suggesting possible mixed ventilatory defect with a component of COPD. A CT scan completed in 2020 did not have fibrotic changes noted suggesting fluid as a possibility for restriction on PFT. As needed bronchodilators likely sufficient at this time. Patient does have significant pulmonary hypertension and this may be secondary to failure to comply with supplemental oxygen. Okay to continue with antibiotics for now, but these can likely be discontinued at 48 hours if patient remains afebrile and culture negative. ABG is not suggestive of CO2 retention at baseline. High clinical suspicion patient will require supplemental oxygen on discharge 2. Acute diastolic CHF with pulmonary hypertension Patient with elevated BNP on presentation. Patient did have some sinus bradycardia on presentation, but was on carvedilol and amiodarone at baseline. But heart rate appears to be better controlled at this time. Cardiology has been consulted. Patient is on aspirin and high intensity statin. Clinical suspicion that an element of pulmonary hypertension may be secondary to noncompliance with supplemental oxygen. Patient would have to have a right h eart catheterization for quantification/classification of pulmonary hypertension once at baseline. Defer to cardiology on timing. Patient will need a walking oximetry prior to discharge as significant desaturation can be found with ambulation in the setting of pulmonary hypertension 3. CKD with hyperkalemia Patient did receive Kayexalate yesterday. Await nephrology recommendations moving forward. Baseline creatinine appears to be approximately 2 and patient presented with a creatinine of 2.5. No indication for renal replacement therapy as hyperkalemia has been responsive to conservative therapy. Morning labs are currently pending. Defer to hospitalist. 4. Hypothyroidism/hyperlipidemia/frequent falls/advanced age/poor historian/pancytopenia Complicates care, management, recovery and prognosis. CODE STATUS has been verified is DNR/DNI. Patient should have therapy evaluate. Peripheral vascular disease likely has led to some proprioceptive issues. Previous workup for pancytopenia has been negative Subjective Subjective Patient did well overnight. Patient was sitting upright in the bed on my evaluation and was much more appropriate. Patient stating he has not had supplemental oxygen at home. Patient does live independently despite multiple falls recently. Objective Data Objective Data Vital Signs: Vital Signs Temp Pulse Resp BP Pulse Ox O2 Del Method O2 Flow Rate 36.7 C 57 L 18 150/60 H 94 Nasal Cannula 3 06/22/23 21:12 06/22/23 21:12 06/22/23 21:12 06/22/23 21:12 06/22/23 21:12 06/23/23 03:51 06/23/23 03:51 Oxygen Flow Rate (L/min) 3 Oxygen Delivery Method Nasal Cannula Weight: 85.1 kg Body Mass Index (BMI) 26.9 Intake & Output: Intake and Output for Last 24 Hours 06/21/23 06/22/23 06/23/23 23:59 23:59 23:59 Intake Total 2359.17 / 2359.17 1090 / 1390 350 / 350 Output Total 400 / 400 2725 / 3725 1000 / 1000 Balance 1958.17 / 1958.17 -1635 / -2335 -650 / -650 Lab / Micro Data Attestation: I reviewed the patient's lab results. Lab results narrative: Morning labs are currently pending 06/22/23 08:37 06/22/23 08:37 Labs: Laboratory Results - last 24 hr 06/22/23 08:37: WBC 3.5 L, RBC 2.10 L, Hgb 7.2 L, Hct 23.9 L, MCV 113.8 H, MCH 34.3 H, MCHC 30.1 L, RDW Std Deviation 80.4 H, RDW Coeff of Chanel 19.2 H, Plt Count 83 L, MPV 10.8, Immature Gran % (Auto) 0.300, Neut % (Auto) 67.6, Lymph % (Auto) 17.2 L, [place] % (Auto) 11.7 H, Eos % (Auto) 2.6, Baso % (Auto) 0.6, A bsolute Neuts (auto) 2.4, Absolute Lymphs (auto) 0.60 L, Nucleated RBC % 0, D ifferential Comment SCANNED, Diff Path Review May foll, Platelet Estimate MOD DEC, Anisocytosis 2+, Microcytosis 1+, Macrocytosis 1+, Sodium 144, Potassium 4.6, Chloride 113 H, Carbon Dioxide 27.0, Anion Gap 4 L, BUN 51 H, Creatinine 2.32 H, Estim Creat Clear Calc 25.78, Est GFR (MDRD) Af Amer 35 L, Est GFR (MDRD) Non-Af 29 L, BUN/Creatinine Ratio 22.0 H, Glucose 90, Calcium 8.6, Iron 34 L, TIBC 204 L, Iron Saturation 16.7, Ferritin 399 H Physical Exam Const alert and oriented x3 Constitutional Narrative: Much better voice quality today compared to yesterday General Appearance: cooperative HEENT normocephalic; Negative for head/scalp atraumatic Eyes PERRL, EOMs intact bilaterally and no scleral icterus Eyes Narrative: Slight scleral injection noted Neck no lymphadenopathy, supple and no JVD Lymph Lymphatic: no lymphadenopathy noted and no lymphedema noted Resp Auscultation: diminished lung sounds; Negative for rales, rhonchi or wheezes Cardio regular rate, regular rhythm, S1 normal heart sound, S2 normal heart sound, no murmurs, no rub and no gallops GI normal to inspection, nondistended, normoactive bowel sounds, soft to palpation and non-tender Extremity no clubbing, cyanosis or edema Extremity Narrative: Lower extremities wrapped General Extremity: no tenderness to palpation of joints or extremities Skin General Skin Exam: no breakdown Neuro CN's II-XII intact bilaterally, no focal motor deficits and no sensory deficits noted Psych thought process normal and cooperative Appearance: appropriate Charges/Coding Visit Charges Inpatient E&M: 12706 Subs Hosp L2
[2023-06-23 07:29] VITALS: O2SAT 94
--- NOTE | 2023-06-23 10:31 | PN_ITS ---
Subjective Subjective Patient seen and examined. He feels he is getting better. His breathing has improved. He has no other complaints. Upon further inquiry patient admits to having dark stools yesterday but has not had any since that. He is hemoglobin dropped to 7.2 yesterday and is pending today. He does have a history of peptic ulcer disease. Objective Data Objective Data Vital Signs: Vital Signs Temp Pulse Resp BP Pulse Ox O2 Del Method O2 Flow Rate 98.1 F 91 18 159/58 H 94 Nasal Cannula 4 06/23/23 05:00 06/23/23 05:00 06/23/23 05:00 06/23/23 05:00 06/23/23 07:29 06/23/23 07:29 06/23/23 07:38 Oxygen Flow Rate (L/min) 4 Oxygen Delivery Method Nasal Cannula Weight: 187 lb 9.814 oz Body Mass Index (BMI) 26.9 Intake & Output: Intake and Output for Last 24 Hours 06/21/23 06/22/23 06/23/23 23:59 23:59 23:59 Intake Total 2359.17 / 2359.17 1090 / 1390 600 / 600 Output Total 400 / 400 2725 / 3725 2500 / 2500 Balance 1959.17 / 1959.17 -1635 / -2335 -1900 / -1900 Lab / Micro Data 06/22/23 08:37 06/22/23 08:37 Labs: Laboratory Results - last 24 hr 06/22/23 08:37: Iron 34 L, TIBC 204 L, Iron Saturation 16.7, Ferritin 399 H Physical Exam Const alert, oriented x3 and no apparent distress General Appearance: cooperative HEENT normocephalic and head/scalp atraumatic Eyes PERRL and EOMs intact bilaterally Neck no lymphadenopathy, supple and no JVD Lymph Lymphatic: no lymphadenopathy noted and no lymphedema noted Resp Resp Narrative: moderately diminished breath sounds bibasally; bilateral crackles. On 4L of oxygen by nasal canula Cardio regular rate, regular rhythm, S1 normal heart sound, S2 normal heart sound and no murmurs GI normal to inspection, nondistended, normoactive bowel sounds, soft to palpation and non-tender Extremity normal capillary refill and no clubbing, cyanosis or edema General Extremity: no tenderness to palpation of joints or extremities Skin General Skin Exam: no breakdown Neuro CN's II-XII intact bilaterally, no focal motor deficits, no sensory deficits noted and deep tendon reflexes 2+ bilaterally Motor Exam: strength 5/5 throughout and general weakness Psych thought process normal and cooperative Appearance: appropriate Assessment & Plan Assessment/Plan (1) General weakness: (2) Debility: (3) Acute respiratory failure with hypoxia: (4) Aspiration pneumonia: PLAN: Plan #Acute hypoxic respiratory failure due to probable aspiration pneumonia * remains on 4L of oxygen by nasal canula * speech therapy evaluated him and he was cleared for oral intake. * CXR done showed no evidence of pneumonia and showed small bilateral pleural effusion siwth bibasilar atelectasis * remains on IV zosyn due to concern for aspiration. * titrate oxygen to maintain sats >90% * pulmonology on board * #Sinus bradycardia * had first degree AV block also. troponins were negative * carvedilol adn amiodarone on hold * cardiology on board * has known EF of 60%, with RVSP of severe pulmonary hypertension. * carvedilol and amiodarone on hold. * #CAD s/p CABG and stents; on aspirin and high intensity statin. Beta anna on hold. #CKD IV with hyperkalemia: hyperkalemia resolved with treatmwnt. Cr is 2.32 today. #Pancytopenia: * CBC pending today; Hb was down to 7.2 yesterday * he did complain of dark stools yesterday * he has a history of PUDx and had EGD in November 2022 which showed bleeding peptic ulcer, which was cauterised. * Iron profile showed low iron levels of 34 with low TIBC. Iron saturation at 16.7 was on the lower side of normal and ferritin was elevated mildly at 399. This is more indicative of an anemia of chronic disease picture. * will hold aspirin; consult GI * transfuse if Hb < 7 #Ulcerative colitis: on colazal #Hypothyroidism: on synthroid #Hyperlipidemia: on statin #Debility due to frequent falls: PT/OT on board. Fall precautions #History of COPD and emphysema: on had pneumothorax in August 2020 and was sen at [facility] for CT evaluation. Had VATS. DVT prophylaxis; SCDs Charges/Coding Visit Charges Inpatient E&M: 95896 Subs Hosp L3
[2023-06-23 10:32] VITALS: BP 131/63; PULSE 59; RESP 16; TEMP 36.3; O2SAT 96
[2023-06-23] MEDS: BALSALAZIDE DISODIUM 750 MG CAPSULE 2250 MG PO ×2 (10:38→22:40)
[2023-06-23] MEDS: Ferrous Sulfate 325 MG Tablet PO (10:39)
[2023-06-23] MEDS: Bumetanide 1 MG/4 ML Vial IV ×2 (10:39→18:37)
[2023-06-23] MEDS: Pantoprazole Sodium 40 MG in 0.9% Normal Saline (100mL MB+) 100 ML 330 MG IV ×2 (10:39→22:32)
--- NOTE | 2023-06-23 11:31 | EX.PCM.CON.G ---
HPI Consult Data Date of Consult: 06/23/23 HPI Narrative Reason for Consultation: Anemia HPI Narrative: EULOGIO NOGUERA, is a 82 M who presents with worsening shortness of breath. He had been becoming increasingly dyspenic over the last several days. He stated about 1:30 AM today he felt like flutter waves, was short of breath was dizzy and lightheaded. Patient denied chest pressure tightness or congestion. He denies fever cough, recent URI symptoms or pneumonia like symptoms. Patient further said he had a fall about 3 times in the last 10 days. He fell yesterday, day before yesterday and about 8 days ago. He states while turning he loses balance and then fall. He also has ulcer over right lower leg from fall which is chronic and follows with wound center. He also has a left heel ulcer and left leg ulcer is healing. He was also discovered to be bradycardic. His bradycardia was determined to be possibly secondary to his medications that he takes for atrial fibrillation and his beta-anna. Cardiology recommended with his bradycardiac to holding his BB and his amiodarone. Recommend that he have an event monitor on OP basis. His Bp is controlled on current medications. I was asked to see him due to worsening anemia. He is on antiplatelet therapy and anticoagulation. His hemoglobin was noted to be 7.9 with a platelet count of 94,000. He is not known to have liver disease. Patient he does not have any images of his abdomen and pelvis since 2016 at our institution where he had a CT angio of the abdomen pelvis. [facility] Medical History Alcohol use Atherosclerotic heart disease of [place] coronary artery without angina pectoris Atrial fibrillation and flutter Cardiology follow-up encounter Carotid artery stenosis Dietary restriction Elevated troponin Emphysema of lung Essential hypertension Fever Former smoker Hematemesis/vomiting blood High cholesterol History of atrial fibrillation History of cardioversion (~05/09/20) History of coronary artery disease History of echocardiogram History of edema History of GI bleed History of right inguinal hernia History of stress test History of transesophageal echocardiography (ROSI) History of umbilical hernia Hx of ulcerative colitis Hypercholesterolemia Hyperlipidemia Hypertension 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 Mitral valve insufficiency PAD (peripheral artery disease) Premature atrial contractions Right carotid bruit Subclavian artery stenosis, left (~04/17/20) Thrombocytopenia Thrombocytopenia Thyroid disease Ulcerative colitis Upper GI bleed Upper GI bleed Walker as ambulation aid Wears glasses Wears hearing aid Home Medications ferrous sulfate 325 mg (65 mg iron) tablet 325 mg PO DAILY vitamin 05/28/15 [History Last Taken 05/09/20] vitamin B complex 1 each PO DAILY vitamin 02/07/16 [History Last Taken 05/09/20] levothyroxine 50 mcg tablet 75 mcg PO DAILY thyroid 06/13/20 [History Last Taken Unknown] acetaminophen 500 mg tablet 1,000 mg (2 x 500 mg) PO Q6H PRN PRN Pain Score 1-5 #0 tabs 12/19/22 [Rx Last Taken Unknown] aspirin 81 mg tablet,delayed release 81 mg PO DAILY 04/14/23 [History Last Taken Unknown] atorvastatin 40 mg tablet (Lipitor) 40 mg PO DAILY cholesterol #90 tabs 04/14/23 [Rx Last Taken Unknown] balsalazide 750 mg capsule (Colazal) 2,250 mg PO BID 04/14/23 [History Last Taken Unknown] hydralazine 50 mg tablet 50 mg PO BID 04/14/23 [History Last Taken Unknown] amiodarone 200 mg tablet See Rx Instructions .Route .COMPLEX #90 TABLETS 05/09/23 [Rx Last Taken Unknown] amlodipine 10 mg tablet 10 mg PO DAILY #90 tabs 05/20/23 [Rx Last Taken Unknown] carvedilol 3.125 mg tablet 3.125 mg PO BID heart #180 tabs 05/21/23 [Rx Last Taken Unknown] lisinopril 20 mg tablet 20 mg PO DAILY #90 tabs 05/21/23 [Rx Last Taken Unknown] ciprofloxacin HCl 750 mg tablet 750 mg PO BID 2 weeks #28 tabs 06/09/23 [Rx Last Taken Unknown] doxycycline hyclate 100 mg capsule 100 mg PO BID 2 weeks #28 caps 06/09/23 [Rx Last Taken Unknown] Allergy/AdvReac Type Severity Reaction Status Date / Time hydrochlorothiazide Allergy Severe Rash Verified 06/20/23 00:46 furosemide [From Lasix] Allergy Severe Verified 06/20/23 00:46 Rash Itchy lovastatin [From Mevacor] Allergy Rash Verified 06/20/23 00:46 Family History Father CAD (coronary artery disease) Mother Cancer breast Surgical History Aortocoronary bypass status (~02/12/17) History of cardiac catheterization History of hand surgery History of right inguinal hernia repair History of umbilical hernia repair History of vasectomy Hx of CABG Hx of colonoscopy Hx of esophagogastroduodenoscopy Hx of heart bypass surgery S/P right inguinal hernia repair S/P umbilical hernia repair, follow-up exam Status post insertion of drug-eluting stent into right coronary artery for coronary artery disease (~04/2009) Social History adopted: No household members: spouse housing: house number of children: 2 current occupational status: retired Smoking Status: Former smoker Tobacco: How many years used: 50 (stopped about 10 yrs ago) how long ago did patient quit smokin years ago alcohol intake: current alcohol intake frequency: 3 or more drinks per day Alcohol type: beer, wine and hard liquor substance use type: does not use caffeine: Yes Type: coffee Number of servings: 2 ROS Constitutional Constitutional: Reports weakness; Denies chills, fever(s) or weight gain ENT HEENT: Denies headache(s), nasal congestion or nasal discharge Cardiovascular Cardiovascular: Denies chest pain or palpitations Respiratory/Chest Respiratory/Chest: Denies cough, excessive phlegm production or shortness of breath with exertion Gastrointestinal Gastrointestinal: Denies abdominal pain, nausea or vomiting Genitourinary Genitourinary: Denies dysuria Musculoskeletal Musculoskeletal: Denies joint pain or joint swelling Integumentary Integumentary: Denies rash or wounds Neurologic Neurologic: Denies focal weakness, numbness or tingling Psychiatric Psychiatric: Denies anxiety, auditory hallucinations, depression, homicidal ideation or suicidal ideation Physical Exam Const alert, oriented x3 and no apparent distress HEENT normocephalic, head/scalp atraumatic, hearing grossly normal bilaterally, external ears normal, external nose normal and moist oral mucous membranes Eyes PERRL, EOMs intact bilaterally, conjunctivae normal and no scleral icterus Neck no lymphadenopathy, supple and no JVD Resp normal respiratory effort, no use of accessory muscles and clear to auscultation bilaterally Cardio regular rate, regular rhythm, S1 normal heart sound, S2 normal heart sound, no rub, no gallops, no clicks, no JVD and peripheral pulses 2+ throughout Heart Sounds: murmur systolic II/ soft GI normal to inspection, nondistended, normoactive bowel sounds, soft to palpation, non-tender and non-distended Extremity normal to inspection, normal capillary refill, no clubbing, cyanosis or edema and no pedal edema Neuro oriented x3, CN's II-XII intact bilaterally, moves all extremities and no focal motor deficits Psych cooperative and affect normal Lab / Micro Data 06/24/23 10:25 06/23/23 12:45 Labs: Laboratory Results - last 24 hr 06/23/23 12:45: WBC 4.4, RBC 2.20 L, Hgb 7.9 L, Hct 25.1 L, MCV 114.1 H, MCH 35.9 H, MCHC 31.5 L, RDW Std Deviation 78.6 H, RDW Coeff of Chanel 18.7 H, Plt Count 94 L, MPV 10.4, Immature Gran % (Auto) 0.200, Neut % (Auto) 73.5 H, Lymph % (Auto) 11.9 L, [place] % (Auto) 10.3 H, Eos % (Auto) 3.4, Baso % (Auto) 0.7, Absolute Neuts (auto) 3.2, Absolute Lymphs (auto) 0.52 L, Nucleated RBC % 0, Platelet Estimate SLT DEC, Anisocytosis 1+, Sodium 142, Potassium 5.1, Chloride 111 H, Carbon Dioxide 27.0, Anion Gap 4 L, BUN 57 H, Creatinine 2.52 H, Estim Creat Clear Calc 23.74, Est GFR (MDRD) Af Amer 32 L, Est GFR (MDRD) Non-Af 26 L, BUN/Creatinine Ratio 22.6 H, Glucose 142 H, Calcium 8.6 06/23/23 20:48: Urine Color Yellow, Urine Clarity Clear, Urine pH 7.0, Ur Specific [place] 1.010, Urine Protein Negative, Urine Glucose (UA) Normal, Urine Ketones Negative, Urine Occult Blood Negative, Urine Nitrite Negative, Urine Bilirubin Negative, Urine Urobilinogen Normal, Ur Leukocyte Esterase Negative, Urine RBC 0 SEEN, Urine WBC 0 SEEN, Ur Squamous Epith Cells 0 SEEN, Urine Bacteria 0 SEEN, Urine Mucus 0 SEEN 12/26/23 10:25: WBC 3.9 L, RBC 2.12 L, Hgb 7.2 L, Hct 23.7 L, MCV 111.8 H, MCH 34.0 H, MCHC 30.4 L, RDW Std Deviation 74.2 H, RDW Coeff of [place]el 18.1 H, Plt Count 78 L, MPV 9.9, Immature Gran % (Auto) 0.300, Neut % (Auto) 71.1 H, Lymph % (Auto) 14.8 L, [place] % (Auto) 9.7, Eos % (Auto) 3.6, Baso % (Auto) 0.5, Absolute Neuts (auto) 2.8, Absolute Lymphs (auto) 0.58 L, Nucleated RBC % 0, Differential Comment SCANNED, Diff Path Review October, Platelet Estimate SLT DEC, Anisocytosis 2+, Microcytosis 1+, Macrocytosis 1+ Assessment & Plan Assessment/Plan (1) Atrial fibrillation: QUALIFIERS: Atrial fibrillation type: paroxysmal Qualified Code(s): I48.0 - Paroxysmal atrial fibrillation (2) Anemia: QUALIFIERS: Anemia type: iron deficiency Iron deficiency anemia type: unspecified iron deficiency Qualified Code(s): D50.9 - Iron deficiency anemia, unspecified PLAN: 82-year-old gentleman with multiple comorbidities currently being treated with antibiotics for bilateral cellulitis of the lower extremities. His hemoglobin is drifted down to 7. He did have occasional dark stools but no gross blood. Differential diagnosis for this would be upper GI bleed with rapid transit, gastritis, duodenitis. He should undergo an upper endoscopy evaluate of the upper GI tract. He was explained alternatives, risk, benefits including understanding bleeding, infection, sepsis, perforation, need emergent and . Have an ASA of 3.
[2023-06-23 12:58] LABS: Absolute Lymphocyte Count 0.52 X10^3/uL (0.83-4.51); Absolute Neutrophil Count 3.2 X10^3/uL (2.0-7.7); Basophil# 0.03 X10^3/uL; Basophil% 0.7 % (0-1); Eosinophil# 0.15 X10^3/uL; Eosinophils% 3.4 % (0-5); Hematocrit 25.1 % (40-54); Hemoglobin 7.9 g/dL (13.0-16.5); Lymphocyte # 0.52 X10^3/ul (0.83-4.51); Lymphocyte % 11.9 % (19-41); Mean Corp Hgb Conc 31.5 g/dL (32-36); Mean Corpuscular Hgb 35.9 pg (27.0-32.0); Mean Corpuscular Volume 114.1 fL (80-94); Mean Platelet Vol. 10.4 fl (6.2-12.0); Monocyte# 0.45 X10^3/uL; Monocyte% 10.3 % (0-10); NRBC Flagged by Analyzer 0 % (0-5); Neutrophil % 73.5 % (47-70); POSITIVE COUNT YES; POSITIVE DIFFERENTIAL YES; POSITIVE MORPHOLOGY YES; Platelet Count 94 K/mm3 (150-450); RBC Distribution Width CV 18.7 % (11.6-14.6); RBC Distribution Width SD 78.6 fl (35.1-43.9); White Blood Count 4.4 K/mm3 (4.4-11.0)
[2023-06-23 13:00] LABS: Differential Indicated SCAN CRITERIA MET
[2023-06-23 13:11] LABS: Anion Gap 4 (5-15); BUN 57 mg/dL (7-18); BUN/Creat Ratio 22.6 RATIO (10-20); Calcium,Total 8.6 mg/dL (8.5-10.1); Chloride 111 mmol/L (98-107); Creatinine, Serum 2.52 mg/dL (0.70-1.30); EST Glomerular Filtration Rate 26 mL/min (>60); Est Glom Filt Rate - Afr Amer 32 mL/min (>60); Estimated Creatinine Clearance 23.74 ml/min; Glucose 142 mg/dL (74-106); Potassium 5.1 mmol/L (3.5-5.1); Sodium Level 142 mmol/L (136-145)
[2023-06-23 13:29] LABS: Anisocytosis 1+; Platelet Estimate SLT DEC (ADEQ)
[2023-06-23 16:46] VITALS: BP 153/65; PULSE 55; RESP 16; TEMP 36.3; O2SAT 98
[2023-06-23 18:33] VITALS: BP 150/55; PULSE 54
[2023-06-23] MEDS: 0.9% Saline Lock 10 ML Syringe IV (18:37)
[2023-06-23 21:00] LABS: Bacteria 0 SEEN /hpf (None Seen); Mucous, Urine 0 SEEN /hpf (<or=2+); Red Blood Cells-Urine 0 SEEN /hpf (0-5); Squamous Epithelial Cells - UA 0 SEEN /hpf (0-5); White Blood Cells 0 SEEN /hpf (0-5)
[2023-06-23 21:03] LABS: Color, Urine Yellow (Yellow); Glucose, Dipstick Normal (Normal); Ketone-Dipstick Negative (Negative); Leukocyte Esterase-Dipstick Negative /ul (Negative); Nitrite-Dipstick Negative (Negative); Occult Blood-Urine Negative /ul (Negative); Protein-Dipstick Negative (Negative); Urine Bilirubin Dipstick Negative (Negative); Urine Clarity Clear (Clear); Urine Urobilinogen Normal (Normal)
[2023-06-23] MEDS: Atorvastatin Calcium 40 MG Tablet PO (22:40)
[2023-06-23 22:46] VITALS: BP 145/60; PULSE 65; RESP 17; TEMP 36.7; O2SAT 98
[2023-06-24] VITALS (11 sets, daily range): BP systolic 95–167; BP diastolic 46–90; PULSE 52–61; RESP 16–18; TEMP 36–36.6; O2SAT 92–100; BMI 26.9
[2023-06-24] MEDS: Piperacil/Tazobactam 3.375 GM in 0.9% Normal Saline (50mL MB+) 50 ML IV ×3 (06:37→21:56)
--- NOTE | 2023-06-24 09:41 | PCM.PROGNOTE ---
Subjective Subjective Patient seen and examined. He had no active complaints and had an uneventful night. Review of systems is othewise negative. He has remained hemodynamically stable. hb today is 7.9. Platelets are 94 today. Objective Data Objective Data Vital Signs: Vital Signs Temp Pulse Resp BP Pulse Ox O2 Del Method O2 Flow Rate 97.9 F 57 L 18 150/90 H 92 Nasal Cannula 2 06/24/23 03:49 06/24/23 03:49 06/24/23 03:49 06/24/23 03:49 06/24/23 07:24 06/24/23 07:24 06/24/23 07:24 Oxygen Flow Rate (L/min) 2 Oxygen Delivery Method Nasal Cannula Weight: 187 lb 9.814 oz Body Mass Index (BMI) 26.9 Intake & Output: Intake and Output for Last 24 Hours 06/22/23 06/23/23 06/24/23 23:59 23:59 23:59 Intake Total 1090 / 1390 870 / 870 50 / 50 Output Total 2725 / 3725 3900 / 5500 1600 / 1600 Balance -1635 / -2335 -3030 / -4630 -1550 / -1550 Lab / Micro Data 06/23/23 12:45 06/23/23 12:45 Labs: Laboratory Results - last 24 hr 06/23/23 12:45: WBC 4.4, RBC 2.20 L, Hgb 7.9 L, Hct 25.1 L, MCV 114.1 H, MCH 35.9 H, MCHC 31.5 L, RDW Std Deviation 78.6 H, RDW Coeff of Chanel 18.7 H, Plt Count 94 L, MPV 10.4, Immature Gran % (Auto) 0.200, Neut % (Auto) 73.5 H, Lymph % (Auto) 11.9 L, Early % (Auto) 10.3 H, Eos % (Auto) 3.4, Baso % (Auto) 0.7, Absolute Neuts (auto) 3.2, Absolute Lymphs (auto) 0.52 L, Nucleated RBC % 0, Platelet Estimate SLT DEC, Anisocytosis 1+, Sodium 142, Potassium 5.1, Chloride 111 H, Carbon Dioxide 27.0, Anion Gap 4 L, BUN 57 H, Creatinine 2.52 H, Estim Creat Clear Calc 23.74, Est GFR (MDRD) Af Amer 32 L, Est GFR (MDRD) Non-Af 26 L, BUN/Creatinine Ratio 22.6 H, Glucose 142 H, Calcium 8.6 06/23/23 20:48: Urine Color Yellow, Urine Clarity Clear, Urine pH 7.0, Ur Specific [place] 1.010, Urine Protein Negative, Urine Glucose (UA) Normal, Urine Ketones Negative, Urine Occult Blood Negative, Urine Nitrite Negative, Urine Bilirubin Negative, Urine Urobilinogen Normal, Ur Leukocyte Esterase Negative, Urine RBC 0 SEEN, Urine WBC 0 SEEN, Ur Squamous Epith Cells 0 SEEN, Urine Bacteria 0 SEEN, Urine Mucus 0 SEEN Physical Exam Const alert, oriented x3 and no apparent distress General Appearance: cooperative HEENT normocephalic and head/scalp atraumatic Eyes PERRL and EOMs intact bilaterally Neck no lymphadenopathy, supple and no JVD Lymph Lymphatic: no lymphadenopathy noted and no lymphedema noted Resp Resp Narrative: moderately diminished breath sounds bibasally; bilateral crackles. down to room air. Cardio regular rate, regular rhythm, S1 normal heart sound, S2 normal heart sound and no murmurs GI normal to inspection, nondistended, normoactive bowel sounds, soft to palpation and non-tender Extremity normal capillary refill and no clubbing, cyanosis or edema General Extremity: no tenderness to palpation of joints or extremities Skin General Skin Exam: no breakdown Neuro CN's II-XII intact bilaterally, no focal motor deficits, no sensory deficits noted and deep tendon reflexes 2+ bilaterally Motor Exam: strength 5/5 throughout and general weakness Psych thought process normal and cooperative Appearance: appropriate Assessment & Plan Assessment/Plan (1) General weakness: (2) Debility: (3) Acute respiratory failure with hypoxia: (4) Aspiration pneumonia: PLAN: Plan #Acute hypoxic respiratory failure due to probable aspiration pneumonia now down to 2L of oxygen. speech therapy evaluated him and he was cleared for oral intake. CXR done showed no evidence of pneumonia and showed small bilateral pleural effusion siwth bibasilar atelectasis remains on IV zosyn due to concern for aspiration. titrate oxygen to maintain sats >90% pulmonology on board #Sinus bradycardia had first degree AV block also. troponins were negative carvedilol adn amiodarone on hold cardiology on board has known EF of 60%, with RVSP of severe pulmonary hypertension. carvedilol and amiodarone on hold. #CAD s/p CABG and stents; on aspirin and high intensity statin. Beta anna on hold. #CKD IV with hyperkalemia: hyperkalemia resolved with treatmwnt. Cr is 2.32 today. #Pancytopenia: Hb today was 7.9 yesterday he did complain of dark stools he has a history of PUDx and had EGD in November 2022 which showed bleeding peptic ulcer, which was cauterised. Iron profile showed low iron levels of 34 with low TIBC. Iron saturation at 16.7 was on the lower side of normal and ferritin was elevated mildly at 399. This is more indicative of an anemia of chronic disease picture. gastroenterology consulted. for EGD today. #Ulcerative colitis: on colazal #Hypothyroidism: on synthroid #Hyperlipidemia: on statin #Debility due to frequent falls: PT/OT on board. Fall precautions #History of COPD and emphysema: on had pneumothorax in August 2020 and was sen at [facility] for CT evaluation. Had VATS. DVT prophylaxis; SCDs Charges/Coding Visit Charges Inpatient E&M: 61142 Subs Hosp L2
--- NOTE | 2023-06-24 10:02 | PN.CC_ITS ---
Assessment & Plan Assessment/Plan (1) Acute respiratory failure with hypoxia: (2) Pancytopenia: PLAN: Plan RECOMMENDATIONS: 1. Consider transition to p.o. diuretics 2. Continue speech/swallow precautions 3. Wean oxygen as tolerated 4. Continue bronchodilators as needed only, but doubt need for systemic steroids 5. Okay to discontinue antibiotics from my perspective 6. Walking oximetry prior to discharge. High clinical suspicion of supplemental oxygen will be required IMPRESSIONS: 1. Acute hypoxic respiratory failure Unclear etiology at this time. Patient with significantly elevated oxygen requirements yesterday that improved with Bumex therapy. Patient did have an elevated BNP on presentation. Patient is being seen by cardiology. Patient does have a previous PFT suggesting possible mixed ventilatory defect with a component of COPD. A CT scan completed in 2020 did not have fibrotic changes noted suggesting fluid as a possibility for restriction on PFT. As needed bronchodilators likely sufficient at this time. Patient does have significant pulmonary hypertension and this may be secondary to failure to comply with supplemental oxygen. Patient appears to have low physiologic signal for hypo mervin. Okay to discontinue antibiotics from my perspective. ABG is not suggestive of CO2 retention at baseline. High clinical suspicion patient will require supplemental oxygen on discharge 2. Acute diastolic CHF with pulmonary hypertension Patient with elevated BNP on presentation. Patient did have some sinus bradycardia on presentation, but was on carvedilol and amiodarone at baseline. But heart rate appears to be better controlled at this time. Cardiology has been consulted. Patient is on aspirin and high intensity statin. Clinical suspicion that an element of pulmonary hypertension may be secondary to noncompliance with supplemental oxygen. Patient would have to have a right heart catheterization for quantification/classification of pulmonary hyper tension once at baseline. Defer to cardiology on timing. Patient will need a walking oximetry prior to discharge as significant desaturation can be found with ambulation in the setting of pulmonary hypertension 3. CKD with hyperkalemia Patient did receive Kayexalate yesterday. Await nephrology recommendations moving forward. Baseline creatinine appears to be approximately 2 and patient presented with a creatinine of 2.5. No indication for renal replacement therapy as hyperkalemia has been responsive to conservative therapy. Morning labs are currently pending. Defer to hospitalist. 4. Hypothyroidism/hyperlipidemia/frequent falls/advanced age/poor historian/pancytopenia Complicates care, management, recovery and prognosis. CODE STATUS has been verified is DNR/DNI. Patient should have therapy evaluate. Peripheral vascular disease likely has led to some proprioceptive issues. Previous workup for pancytopenia has been negative Subjective Subjective Patient did okay overnight. Patient found off of supplemental oxygen and was asymptomatic. Patient subsequently checked and found to be 80% saturation. Patient did not report any change with placement of supplemental oxygen. Objective Data Objective Data Vital Signs: Vital Signs Temp Pulse Resp BP Pulse Ox O2 Del Method O2 Flow Rate 36.6 C 57 L 18 150/90 H 92 Nasal Cannula 2 06/24/23 03:49 06/24/23 03:49 06/24/23 03:49 06/24/23 03:49 06/24/23 07:24 06/24/23 07:24 06/24/23 07:24 Oxygen Flow Rate (L/min) 2 Oxygen Delivery Method Nasal Cannula Weight: 85.1 kg Body Mass Index (BMI) 26.9 Intake & Output: Intake and Output for Last 24 Hours 06/22/23 06/23/23 06/24/23 23:59 23:59 23:59 Intake Total 1090 / 1390 870 / 870 50 / 50 Output Total 2725 / 3725 3900 / 5500 1600 / 1600 Balance -1635 / -2335 -3030 / -4630 -1550 / -1550 Lab / Micro Data Attestation: I reviewed the patient's lab results. 06/23/23 12:45 06/23/23 12:45 Labs: Laboratory Results - last 24 hr 06/23/23 12:45: WBC 4.4, RBC 2.20 L, Hgb 7.9 L, Hct 25.1 L, MCV 114.1 H, MCH 35.9 H, MCHC 31.5 L, RDW Std Deviation 78.6 H, RDW Coeff of Chanel 18.7 H, Plt Count 94 L, MPV 10.4, Immature Gran % (Auto) 0.200, Neut % (Auto) 73.5 H, Lymph % (Auto) 11.9 L, [place] % (Auto) 10.3 H, Eos % (Auto) 3.4, Baso % (Auto) 0.7, Absolute Neuts (auto) 3.2, Absolute Lymphs (auto) 0.52 L, Nucleated RBC % 0, Platelet Estimate SLT DEC, Anisocytosis 1+, Sodium 142, Potassium 5.1, Chloride 111 H, Carbon Dioxide 27.0, Anion Gap 4 L, BUN 57 H, Creatinine 2.52 H, Estim Creat Clear Calc 23.74, Est GFR (MDRD) Af Amer 32 L, Est GFR (MDRD) Non-Af 26 L, BUN/Creatinine Ratio 22.6 H, Glucose 142 H, Calcium 8.6 06/23/23 20:48: Urine Color Yellow, Urine Clarity Clear, Urine pH 7.0, Ur Specific [place] 1.010, Urine Protein Negative, Urine Glucose (UA) Normal, Urine Ketones Negative, Urine Occult Blood Negative, Urine Nitrite Negative, Urine Bilirubin Negative, Urine Urobilinogen Normal, Ur Leukocyte Esterase Negative, Urine RBC 0 SEEN, Urine WBC 0 SEEN, Ur Squamous Epith Cells 0 SEEN, Urine Bacteria 0 SEEN, Urine Mucus 0 SEEN Physical Exam Const alert and oriented x3 Constitutional Narrative: Much better voice quality today compared to admission while lying flat. General Appearance: cooperative HEENT normocephalic; Negative for head/scalp atraumatic Eyes PERRL, EOMs intact bilaterally and no scleral icterus Eyes Narrative: No scleral injection noted Neck no lymphadenopathy, supple and no JVD Lymph Lymphatic: no lymphadenopathy noted and no lymphedema noted Resp Auscultation: diminished lung sounds; Negative for rales, rhonchi or wheezes Cardio regular rate, regular rhythm, S1 normal heart sound, S2 normal heart sound, no murmurs, no rub and no gallops Rate: bradycardia GI normal to inspection, nondistended, normoactive bowel sounds, soft to palpation and non-tender Extremity normal capillary refill and no clubbing, cyanosis or edema Extremity Narrative: Lower extremities wrapped General Extremity: no tenderness to palpation of joints or extremities Skin General Skin Exam: no breakdown Neuro CN's II-XII intact bilaterally, no focal motor deficits and no sensory deficits noted Psych thought process normal and cooperative Appearance: appropriate Charges/Coding Visit Charges Inpatient E&M: 02862 Subs Hosp L2
--- NOTE | 2023-06-24 10:16 | PN.CARD_ITS ---
<Statement entered by Lakshmi Carpenter MD - 06/24/23 15:26> Pt seen & evaluated w/LIBERTAD. I personally interviewed & exam the pt. I was involved in all aspects of pt's orders, interpretation of results & treatment Subjective Subjective Pt seen and examined. He has not complaints. Denies CP/SOB. He is on O2. Objective Data Vital Signs: Vital Signs Temp Pulse Resp BP Pulse Ox O2 Del Method O2 Flow Rate 97.4 F L 58 L 16 167/65 H 96 Nasal Cannula 5 06/24/23 09:54 06/24/23 09:54 06/24/23 09:54 06/24/23 09:54 06/24/23 09:54 06/24/23 10:03 06/24/23 10:03 Oxygen Flow Rate (L/min) 5 Oxygen Delivery Method Nasal Cannula Weight: 187 lb 9.814 oz Body Mass Index (BMI) 26.9 Intake & Output: Intake and Output for Last 24 Hours 06/22/23 06/23/23 06/24/23 23:59 23:59 23:59 Intake Total 1090 / 1390 870 / 870 50 / 50 Output Total 2725 / 3725 3900 / 5500 1600 / 1600 Balance -1635 / -2335 -3030 / -4630 -1550 / -1550 Lab / Micro Data 06/23/23 12:45 06/23/23 12:45 Labs: Laboratory Results - last 24 hr 06/23/23 12:45: WBC 4.4, RBC 2.20 L, Hgb 7.9 L, Hct 25.1 L, MCV 114.1 H, MCH 35.9 H, MCHC 31.5 L, RDW Std Deviation 78.6 H, RDW Coeff of Chanel 18.7 H, Plt Count 94 L, MPV 10.4, Immature Gran % (Auto) 0.200, Neut % (Auto) 73.5 H, Lymph % (Auto) 11.9 L, [place] % (Auto) 10.3 H, Eos % (Auto) 3.4, Baso % (Auto) 0.7, Absolute Neuts (auto) 3.2, Absolute Lymphs (auto) 0.52 L, Nucleated RBC % 0, Platelet Estimate SLT DEC, Anisocytosis 1+, Sodium 142, Potassium 5.1, Chloride 111 H, Carbon Dioxide 27.0, Anion Gap 4 L, BUN 57 H, Creatinine 2.52 H, Estim Creat Clear Calc 23.74, Est GFR (MDRD) Af Amer 32 L, Est GFR (MDRD) Non-Af 26 L, BUN/Creatinine Ratio 22.6 H, Glucose 142 H, Calcium 8.6 06/23/23 20:48: Urine Color Yellow, Urine Clarity Clear, Urine pH 7.0, Ur Specific [place] 1.010, Urine Protein Negative, Urine Glucose (UA) Normal, Urine Ketones Negative, Urine Occult Blood Negative, Urine Nitrite Negative, Urine Bilirubin Negative, Urine Urobilinogen Normal, Ur Leukocyte Esterase Negative, Urine RBC 0 SEEN, Urine WBC 0 SEEN, Ur Squamous Epith Cells 0 SEEN, Urine Bacteria 0 SEEN, Urine Mucus 0 SEEN Cardiology Labs/Tests 06/23/23 12:45: WBC 4.4, RBC 2.20 L, Hgb 7.9 L, Hct 25.1 L, MCV 114.1 H, MCH 35.9 H, MCHC 31.5 L, Plt Count 94 L, MPV 10.4, Immature Gran % (Auto) 0.200, Neut % (Auto) 73.5 H, Lymph % (Auto) 11.9 L, [place] % (Auto) 10.3 H, Eos % (Auto) 3.4, Baso % (Auto) 0.7, Absolute Neuts (auto) 3.2, Nucleated RBC % 0, Sodium 142, Potassium 5.1, Chloride 111 H, Carbon Dioxide 27.0, Anion Gap 4 L, BUN 57 H , Creatinine 2.52 H, Est GFR (MDRD) Af Amer 32 L, Est GFR (MDRD) Non-Af 26 L, BUN/Creatinine Ratio 22.6 H, Glucose 142 H, Calcium 8.6 06/23/23 20:48: Urine Color Yellow, Urine Clarity Clear, Urine pH 7.0, Ur Specific [place] 1.010, Urine Protein Negative, Urine Glucose (UA) Normal, Urine Ketones Negative, Urine Occult Blood Negative, Urine Nitrite Negative, Urine Bilirubin Negative, Urine Urobilinogen Normal, Ur Leukocyte Esterase Negative, Urine RBC 0 SEEN, Urine WBC 0 SEEN Rhythm: NSR Physical Exam Const alert, oriented x3 and no apparent distress HEENT normocephalic, head/scalp atraumatic, hearing grossly normal bilaterally, external ears normal, external nose normal and moist oral mucous membranes Eyes PERRL, EOMs intact bilaterally, conjunctivae normal and no scleral icterus Neck no lymphadenopathy, supple and no JVD Resp normal respiratory effort, no use of accessory muscles and clear to auscultation bilaterally Cardio regular rate, regular rhythm, S1 normal heart sound, S2 normal heart sound, no rub, no gallops, no clicks, no JVD and peripheral pulses 2+ throughout Heart Sounds: murmur systolic II/ soft GI normal to inspection, nondistended, normoactive bowel sounds, soft to palpation, non-tender and non-distended Extremity normal to inspection, normal capillary refill, no clubbing, cyanosis or edema and no pedal edema Neuro oriented x3, CN's II-XII intact bilaterally, moves all extremities and no focal motor deficits Psych cooperative and affect normal Assessment & Plan Assessment/Plan (1) Severe sinus bradycardia: (2) Hypertension: (3) Hyperlipidemia: (4) Atherosclerotic heart disease of [place] coronary artery without angina pectoris: QUALIFIERS: [place] vs. transplanted heart: [place] heart Qualified Code(s): I25.10 - Atherosclerotic heart disease of [place] coronary artery w ithout angina pectoris (5) Subclavian artery stenosis, left: (6) Atrial fibrillation: QUALIFIERS: Atrial fibrillation type: paroxysmal Qualified Code(s): I48.0 - Paroxysmal atrial fibrillation (7) Pulmonary hypertension: PLAN: Plan * With his bradycardiac recommend holding his BB and his amiodarone. Recommend that he have an event monitor on OP basis. * Bp is elevated. Will restart his Norvasc at 5 mg. Based on readings he may need to increased, will also reconsider his hydralazine. If needed this can be done as an OP. * Pt does have severe PHTN, this is being followed by Pulmonary. May need to consider a right heart cath on OP basis. * He does have a hx of PAF, he is not anticoagulated d/t his anemia. Now that he is off his BB and amiodarone, will need to monitor closely. He will have an event monitor done on Op basis. * Will follow up on OP. Charges/Coding Visit Charges Inpatient E&M: 04769 Subs Hosp L2
--- NOTE | 2023-06-24 10:29 | WOUNDNOTE ---
wound photo: right lower leg
--- NOTE | 2023-06-24 10:30 | WOUNDNOTE ---
wound photo: left heel
[2023-06-24 10:38] LABS: Absolute Lymphocyte Count 0.58 X10^3/uL (0.83-4.51); Absolute Neutrophil Count 2.8 X10^3/uL (2.0-7.7); Basophil# 0.02 X10^3/uL; Basophil% 0.5 % (0-1); Eosinophil# 0.14 X10^3/uL; Eosinophils% 3.6 % (0-5); Hematocrit 23.7 % (40-54); Hemoglobin 7.2 g/dL (13.0-16.5); Lymphocyte # 0.58 X10^3/ul (0.83-4.51); Lymphocyte % 14.8 % (19-41); Mean Corp Hgb Conc 30.4 g/dL (32-36); Mean Corpuscular Volume 111.8 fL (80-94); Mean Platelet Vol. 9.9 fl (6.2-12.0); Monocyte# 0.38 X10^3/uL; Monocyte% 9.7 % (0-10); NRBC Flagged by Analyzer 0 % (0-5); Neutrophil # 2.78 X10^3/uL (2.7-7.7); Neutrophil % 71.1 % (47-70); POSITIVE COUNT YES; POSITIVE DIFFERENTIAL YES; POSITIVE MORPHOLOGY YES; Platelet Count 78 K/mm3 (150-450); RBC Distribution Width CV 18.1 % (11.6-14.6); RBC Distribution Width SD 74.2 fl (35.1-43.9); Red Blood Count 2.12 M/mm3 (4.6-6.2); White Blood Count 3.9 K/mm3 (4.4-11.0)
[2023-06-24 10:48] LABS: Differential Indicated SCAN CRITERIA MET
[2023-06-24] MEDS: 0.9% Normal Saline (500mL Bag) 500 ML 15 ML IV (11:17)
[2023-06-24 11:26] LABS: Differential Comment SCANNED
[2023-06-24 11:27] LABS: Anisocytosis 2+; Macrocytosis 1+; Microcytosis 1+; Platelet Estimate SLT DEC (ADEQ)
--- NOTE | 2023-06-24 12:00 | IMM_PTH ---
PATHOLOGY RESULTS PATIENT: EULOGIO NOGUERA LOC: [facility] U#:[id number] AGE/SX: 82/M ROOM: [facility] RE06/20/[address]: Dr. Priya Sheehan MD : 1940 BED: 1 DIS: 06/25/2023 SPEC #: [id number] RECD: 06/25/23 11:01 STATUS: KANDICE REMarlene #: [id number] AMBROSE: 06/24/23 12:[address]: Irving Horowitz DEPT: IMMUNOHISTOCHEMISTRY RECD BY: Christel Chow ENTERED: 06/25/23 11:01 SP TYPE: IMMUNO OTHR DR: MD Dr. William Do MD Dr. Derek Brown, DO Dr. Farouk Belal, MD Dr. Jayaprakas Dasari, MD Dr. Lamia Aljundi, MD Dr. Nana Yaa Koram, MD Dr. Prakash Chand, MD Dr. Tanmay Panchabhai, MD Christina Muller, BLANKET WASHER-C Tissues: Stomach, NOS Procedures: H Pylori (initial) PHYSICIAN & [place] [id number] SPECIMEN INFORMATION: Tissue Source: B - Gastric body Clinical Info: Jac Specimen Number: [id number] CPT code: 57436 METHODOLOGY: Deparaffinized sections of prefer/formalin-fixed tissue or PAP/DQ stained slides are incubated with monoclonal/polyclonal antibodies/oligonucleotide probes. Localization is made via biotin free immunoperoxidase method. Appropriate controls are performed and reacted as expected. Results on target cell population are indicated in the following table: RESULTS: ANTIBODY / CLONE RESULT Block B H Pylori (polyclonal) negative These tests were developed and their performance characteristics determined by [facility]. They may not have been cleared or approved by the U.[place]. Food and Drug Administration. The FDA has determined that such clearance or approval is not necessary. The above immunohistochemical/dualISH markers are ordered and reviewed by the Pathologist. INTERPRETATION: B. Gastric body, biopsy: Negative for Helicobacter pylori organisms. KEYONNA:janusz 06/26/2023
--- NOTE | 2023-06-24 12:00 | EGD_PTH ---
PATHOLOGY RESULTS PATIENT: EULOGIO NOGUERA LOC: [facility] U#:[id number] AGE/SX: 82/M ROOM: [facility] RE06/20/[address]: Dr. Priya Sheehan MD : 1940 BED: 1 DIS: 06/25/2023 SPEC #: [id number] RECD: 06/25/23 07:31 STATUS: KANDICE REMarlene #: [id number] AMBROSE: 06/24/23 12:[address]: Irving Horowitz DEPT: SURGICAL PATHOLOGY RECD BY: Nolvia Eagle ENTERED: 06/25/23 07:31 SP TYPE: EGD BIOPSY OTHR DR: MD Dr. William Do MD Dr. Derek Brown, DO Dr. Farouk Belal, MD Dr. Jayaprakas Dasari, MD Dr. Lamia Aljundi, MD Dr. Nana Yaa Koram, MD Dr. Prakash Chand, MD Dr. Tanmay Panchabhai, MD Christina Muller, EQUIPMENT SUPERINTENDENT-C Tissues: Gastric mucous membrane Gastric mucous membrane Procedures: Surgery Specimen Level IV Comments: @ Ordering doctor for SUIV edited from to @ by OMI at 06/25/23 110 @ Submitting doctor edited from to @ by OMI at 06/25/231101 HEADER OPERATION: EGD with biopsies, hemostasis PRE-OP DIAGNOSIS: Anemia TISSUE SUBMITTED: A - Lesser curvature biopsy, B - Gastric body biopsy MICROSCOPIC DIAGNOSIS A. Lesser curvature, biopsy: Moderate gastritis. See microscopic description. B. Gastric body, biopsy: Moderate gastritis. See microscopic description and comment. SJ:janusz 06/26/2023 COMMENT B. The results of immunohistochemistry for Helicobacter pylori will be reported separately ([id number]). MICROSCOPIC DESCRIPTION Slides are reviewed. A & B. The specimen shows fragments of gastric mucosa with chronic inflammatory cell infiltrates in the lamina propria consisting of lymphocytes and plasma cells, consistent with moderate chronic gastritis. GROSS DESCRIPTION A - Received in fixative is one container labeled with the patient's name and designated lesser curvature biopsy. The specimen consists of two irregular fragments of light iverson soft tissue that in aggregate measure 0.6 x 0.3 x 0.1 cm. The specimen is totally submitted in one cassette. B - Received in fixative is one container labeled with the patient's name and designated gastric body biopsy. The specimen consists of two irregular fragments of light iverson soft tissue that in aggregate measure 0.6 x 0.3 x 0.1 cm. The specimen is totally submitted in one cassette. / SJ:rg 06/25/2023 TC:3 CPT: 02021 x2
--- NOTE | 2023-06-24 12:54 | OP.EGD_ITS ---
Patient Name: Amaury Arreola Procedure Date: 06/24/2023 11:58 AM Date of : 1940 Age: 82 Procedure: Upper GI endoscopy Indications: Iron deficiency anemia Providers: Irving Horowitz DO Medicines: Monitored Anesthesia Care Patient Profile: This is an 82 year old male. Refer to note in patient chart for documentation of history and physical. Patient has symptoms of acute epigastric abdominal pain and acute dyspepsia. Complications: No immediate complications. Procedure: Pre-Anesthesia Assessment: - Prior to the procedure, a History and Physical was performed, and patient medications and allergies were reviewed. The patient is competent. The risks and benefits of the procedure and the sedation options and risks were discussed with the patient. All questions were answered and informed consent was obtained. Patient identification and proposed procedure were verified by the physician in the pre-procedure area. Mental Status Examination: alert and oriented. Airway Examination: normal oropharyngeal airway and neck mobility. Respiratory Examination: clear to auscultation. CV Examination: normal. Prophylactic Antibiotics: The patient does not require prophylactic antibiotics. Prior Anticoagulants: The patient has taken no anticoagulant or antiplatelet agents. ASA Grade Assessment: III - A patient with severe systemic disease. After reviewing the risks and benefits, the patient was deemed in satisfactory condition to undergo the procedure. The anesthesia plan was to use monitored anesthesia care (MAC). Immediately prior to administration of medications, the patient was re-assessed for adequacy to receive sedatives. The heart rate, respiratory rate, oxygen saturations, blood pressure, adequacy of pulmonary ventilation, and response to care were monitored throughout the procedure. The physical status of the patient was re-assessed after the procedure. After obtaining informed consent, the endoscope was passed under direct vision. Throughout the procedure, the patient's blood pressure, pulse, and oxygen saturations were monitored continuously. The gastroscope was introduced through the mouth, and advanced to the third part of duodenum. The upper GI endoscopy was accomplished without difficulty. The patient tolerated the procedure well. Scope In: 12:14:03 PM Scope Out: 12:45:32 PM Total Procedure Duration Time 0 hours 31 minutes 29 seconds Findings: The examined esophagus was normal. Two oozing cratered gastric ulcers with a visible vessel were found in the gastric body. The largest lesion was 4 mm in largest dimension. Area was successfully injected with 5 mL of a 0.1 mg/mL solution of epinephrine for drug delivery. Coagulation for hemostasis using heater probe was successful. Estimated blood loss was minimal. One non-bleeding linear gastric ulcer with pigmented material was found on the lesser curvature of the stomach. The lesion was 6 mm in largest dimension. Coagulation for bleeding prevention using argon plasma at 0.3 liters/minute and 20 bo was successful. Estimated blood loss was minimal. Three non-bleeding linear gastric ulcers with no stigmata of bleeding were found in the gastric body and on the lesser curvature of the stomach. The largest lesion was 5 mm in largest dimension. Biopsies were taken with a cold forceps for histology. Verification of patient identification for the specimen was done. Estimated blood loss was minimal. No gross lesions were noted in the first portion of the duodenum. Impression: - Normal esophagus. - Oozing gastric ulcers with a visible vessel. Injected. Treated with a heater probe. - Non-bleeding gastric ulcer with pigmented material. Treated with argon plasma coagulation (APC). - Non-bleeding gastric ulcers with no stigmata of bleeding. Biopsied. - No gross lesions in the first portion of the duodenum. Recommendation: - Discharge patient to home. - Clear liquid diet today. - No aspirin, ibuprofen, naproxen, or other non-steroidal anti-inflammatory drugs for 7 days. - Await pathology results. - Use Protonix (pantoprazole) 40 mg PO BID. Procedure Code(s): --- Professional --- 11252, 59, Esophagogastroduodenoscopy, flexible, transoral; with control of bleeding, any method 58727, Esophagogastroduodenoscopy, flexible, transoral; with biopsy, single or multiple 41969, 59,51, Esophagogastroduodenoscopy, flexible, transoral; with directed submucosal injection(s), any substance CPT copyright 2021 [employer]. All rights reserved. The codes documented in this report are preliminary and upon pulling unit floorhand review may be revised to meet current compliance requirements. Irving Horowitz DO 06/24/2023 12:54:05 PM This report has been signed electronically. Number of Addenda: 0 Note Initiated On: 06/24/2023 11:58 AM
--- NOTE | 2023-06-24 12:55 | OP.CCLET_ITS ---
06/24/2023 Rosa Maria [address] [place] [address] Re : Upper GI endoscopy procedure for Amaury Elba Dear Dr. Santacruz This procedure was performed on Saturday, June 24, 2023. My impressions and recommendations are as follows: Impressions : - Normal esophagus. - Oozing gastric ulcers with a visible vessel. Injected. Treated with a heater probe. - Non-bleeding gastric ulcer with pigmented material. Treated with argon plasma coagulation (APC). - Non-bleeding gastric ulcers with no stigmata of bleeding. Biopsied. - No gross lesions in the first portion of the duodenum. Recommendations : - Discharge patient to home. - Clear liquid diet today. - No aspirin, ibuprofen, naproxen, or other non-steroidal anti-inflammatory drugs for 7 days. - Await pathology results. - Use Protonix (pantoprazole) 40 mg PO BID. My findings are described in the full procedure note, which is enclosed. If I can be of further assistance, please feel free to contact me at . Sincerely, Irving Horowitz, 06/24/2023 12:54:05 PM This report has been signed electronically.
[2023-06-24 13:24] LABS: Vitamin B12 370 pg/mL (211-911)
[2023-06-24 13:32] LABS: Pathologist Review Reviewed
[2023-06-24 13:32] LABS: Pathologist Review Reviewed
[2023-06-24] MEDS: Pantoprazole Sodium 40 MG in 0.9% Normal Saline (100mL MB+) 100 ML 330 MG IV ×2 (13:54→21:56)
[2023-06-24] MEDS: Bumetanide 1 MG/4 ML Vial IV ×2 (13:54→18:16)
[2023-06-24] MEDS: 0.9% Saline Lock 10 ML Syringe IV ×2 (13:58→18:17)
[2023-06-24] MEDS: amLODIPine 5 MG Tablet PO (14:11)
[2023-06-24] MEDS: BALSALAZIDE DISODIUM 750 MG CAPSULE 2250 MG PO ×2 (14:11→21:55)
--- NOTE | 2023-06-24 17:00 | CASEMGMT ---
Social Work This business writer noted that discharge plan was to be determined: Home health care versus snf facility. Therapy documentation reviewed and noted patient could benefit from some additional therapy. This business writer printed both a list of snf facilities and skilled home health care agencies from [facility], relative to patient's geographical region, and insurance, which included Medicare star and quality data. Met with patient, introducing to self and social work role. Patient reports was at [facility] for 4 months, being discharged on March 30. Patient reports has been at home and has been receiving snf through [facility]. Reports [facility] is still coming out to the home twice a week. Patient also reports on to have a table filler come for 4 hours and pace this person privately. Reports this person is on-call for things, and will assist patient intermittently when needed. This business writer reviewed the possibility of short-term snf facility. Patient reports that really does not want to go back to a snf facility. Reports to enjoy freedom at home, and to be able to bathe, take care of personal needs on own time. Patient reports would be open to having skilled therapy at home on the days when nursing is not there, and in this way would have somebody checking on the patient daily. This business writer agreed that somebody from care management would check in with [facility] to see if adding therapy would be possible. This business writer did provide patient with a list of snf facilities, for patient to consider, in case patient changes mind. Patient reports really wants to return home with home health, but would like to keep snf list, reporting patient is not getting any younger and at some point we will have to likely make a move into a nursing facility long-term. Updated Cyndi IVRGEN CM, to patient's reports of being active with the [facility] skilled home health care. Plan: As per patient's choice, return home with skilled home health care. Social work does remain available should patient's status change, and patient agrees SNF. -HERRERA Abraham
[2023-06-24] MEDS: Atorvastatin Calcium 40 MG Tablet PO (21:56)
[2023-06-25] VITALS (7 sets, daily range): BP systolic 155–162; BP diastolic 50–61; PULSE 60–78; RESP 16; TEMP 36.4–36.8; O2SAT 87–98
[2023-06-25] MEDS: Piperacil/Tazobactam 3.375 GM in 0.9% Normal Saline (50mL MB+) 50 ML IV ×2 (05:54→13:42)
[2023-06-25] MEDS: Levothyroxine 75 MCG Tablet PO (05:54)
[2023-06-25 06:01] LABS: Absolute Lymphocyte Count 0.46 X10^3/uL (0.83-4.51); Absolute Neutrophil Count 2.3 X10^3/uL (2.0-7.7); Basophil# 0.03 X10^3/uL; Basophil% 0.9 % (0-1); Eosinophil# 0.19 X10^3/uL; Eosinophils% 5.8 % (0-5); Hematocrit 23.9 % (40-54); Hemoglobin 7.4 g/dL (13.0-16.5); Lymphocyte # 0.46 X10^3/ul (0.83-4.51); Lymphocyte % 14.1 % (19-41); Mean Corpuscular Hgb 34.7 pg (27.0-32.0); Mean Corpuscular Volume 112.2 fL (80-94); Mean Platelet Vol. 10.5 fl (6.2-12.0); Monocyte% 9.2 % (0-10); NRBC Flagged by Analyzer 0 % (0-5); Neutrophil # 2.27 X10^3/uL (2.7-7.7); Neutrophil % 69.7 % (47-70); POSITIVE COUNT YES; POSITIVE DIFFERENTIAL YES; POSITIVE MORPHOLOGY YES; Platelet Count 83 K/mm3 (150-450); RBC Distribution Width CV 17.2 % (11.6-14.6); RBC Distribution Width SD 71.7 fl (35.1-43.9); Red Blood Count 2.13 M/mm3 (4.6-6.2); White Blood Count 3.3 K/mm3 (4.4-11.0)
[2023-06-25 06:19] LABS: Anion Gap 5 (5-15); BUN 45 mg/dL (7-18); BUN/Creat Ratio 18.7 RATIO (10-20); Calcium,Total 8.2 mg/dL (8.5-10.1); Chloride 111 mmol/L (98-107); Creatinine, Serum 2.41 mg/dL (0.70-1.30); EST Glomerular Filtration Rate 28 mL/min (>60); Est Glom Filt Rate - Afr Amer 33 mL/min (>60); Estimated Creatinine Clearance 24.82 ml/min; Glucose 63 mg/dL (74-106); Potassium 5.1 mmol/L (3.5-5.1); Sodium Level 143 mmol/L (136-145)
[2023-06-25 06:24] LABS: Differential Indicated SCAN CRITERIA MET
[2023-06-25 07:13] LABS: Bedside Glucose 82 mg/dL (74-106)
[2023-06-25 07:22] LABS: Anisocytosis RARE; Differential Comment SCANNED; Platelet Estimate SLT DEC (ADEQ)
--- NOTE | 2023-06-25 08:26 | CASEMGMT ---
Addendum entered by Cyndi Contreras 06/25/23 17:16: wound care instructions sent to [facility] via [employer]. Addendum entered by Cyndi Contreras 06/25/23 16:18: Per Tereza [facility] accepted pt. This was added to pt's discharge plan. Pulse ox given to RNErum, to give to pt and instruct on use. O2 has been delivered to pt's room by Raisa @ [employer]. Per PROMISE Danielson, pt's son, Obed would like to talk w/CM. Call placed to Obed at this time. Obed and his both updated on discharge plan to go home w/[facility]. They inquired if SNF was presented/offered to pt. They were made aware both SW and this RN CM has spoken w/pt about SNF yesterday and today and that he states he does not wish to go to a SNF and he wants to go home w/[facility]. They were also made aware pt will be discharging home w/oxygen. Further questions answered. Addendum entered by Cyndi Contreras 06/25/23 15:25: Pt qualifies for Home o2 of 2 l/m continuously. PROMISE CM to room. Pt denies having preference of DME co, made aware Dashi is affiliated w/[facility], and states to use [employer]. Pt states he does not have a pulse ox and does not know if anyone can take him anywhere to get him one this evening. RN CM will give one to RN to provide to pt and to instruct on use. Pt states he will call some friends to see if someone is available to take him home today. Tereza, technical planner, working on getting [facility] for pt. Script for O2 received from Dr Sheehan and sent to [employer] via [employer]. Call to Raisa @ [employer] and she was made aware of need of O2 to be delivered to pt's room today. Addendum entered by Cyndi Contreras 06/25/23 12:25: PROMISE ESTEVEZ to room. Pt sitting up in chair. PROMISE ESTEVEZ introduced self and role. Pt made aware that [facility] is unwilling to accept him back. He states he would like to see if another [facility] agency would accept him, stating he still wishes to discharge home. He verifies he does not want to go to a SNF and he feels safe to discharge home alone. He would like to review a list of HHC options. Tereza, technical planner, made aware. Addendum entered by Cyndi Contreras 06/25/23 11:00: Call received back from Janet [facility]. She states they will not accept pt back d/t compliance issues, pt has been falling @ home, and they do not feel pt is safe to be @ home alone. Original Note: PROMISE ESTEVEZ NOTE: PROMISE ESTEVEZ informed yesterday that pt reports he is active w/[facility] for SN and that he would like therapy added. JULIET order for HHC/SN placed and PT/OT added. Call placed to N and SEBASTIÁN left to inform them that pt has been admitted to [facility], to verify pt is active with them, to inquire what services pt is receiving, and to inform them PT/OT to be added per pt request, if possible. VM received from Janet [facility] this AM. She verifies pt is active w/[facility] for SN and she states she will check to see if they have availability to add therapy. Karli MONSALVE RN, CM
[2023-06-25] MEDS: Bumetanide 1 MG/4 ML Vial IV (09:37)
[2023-06-25] MEDS: Ferrous Sulfate 325 MG Tablet PO (09:37)
[2023-06-25] MEDS: 0.9% Saline Lock 10 ML Syringe IV (09:37)
[2023-06-25] MEDS: BALSALAZIDE DISODIUM 750 MG CAPSULE 2250 MG PO (09:37)
[2023-06-25] MEDS: amLODIPine 5 MG Tablet PO (09:37)
[2023-06-25] MEDS: Pantoprazole Sodium 40 MG in 0.9% Normal Saline (100mL MB+) 100 ML 330 MG IV (10:49)
--- NOTE | 2023-06-25 11:00 | PN.GI_ITS ---
Subjective Subjective Patient underwent an upper endoscopy for acute blood loss anemia. He denied having any problems with the procedure yesterday. He tolerated anesthesia without any problems. He denied any abdominal pain, cramping or any other signs of GI bleeding. He is tolerating a normal diet. Objective Data Objective Data Vital Signs: Vital Signs Temp Pulse Resp BP Pulse Ox O2 Del Method O2 Flow Rate 97.6 F L 62 16 155/61 H 97 Nasal Cannula 2 06/25/23 15:35 06/25/23 15:35 06/25/23 15:35 06/25/23 15:35 06/25/23 15:35 06/25/23 15:35 06/25/23 15:35 Oxygen Flow Rate (L/min) [ 2 AMBULATING with Oxygen #1] Oxygen Flow Rate (L/min) [At 2 REST with Oxygen] Oxygen Flow Rate (L/min) 2 Oxygen Delivery Method Nasal Cannula Weight: 187 lb 9.814 oz Body Mass Index (BMI) 26.9 Intake & Output: Intake and Output for Last 24 Hours 06/23/23 06/24/23 06/25/23 23:59 23:59 23:59 Intake Total 870 / 870 446.75 / 446.75 720 / 720 Output Total 3900 / 5500 4700 / 4700 1650 / 1650 Balance -3030 / -4630 -4253.25 / -4253.25 -930 / -930 Lab / Micro Data 06/25/23 05:24 06/25/23 05:24 Labs: Laboratory Results - last 24 hr 06/24/23 10:25: Diff Path Review Reviewed 06/25/23 05:24: WBC 3.3 L, RBC 2.13 L, Hgb 7.4 L, Hct 23.9 L, MCV 112.2 H, MCH 34.7 H, MCHC 31.0 L, RDW Std Deviation 71.7 H, RDW Coeff of Chanel 17.2 H, Plt Count 83 L, MPV 10.5, Immature Gran % (Auto) 0.300, Neut % (Auto) 69.7, Lymph % (Auto) 14.1 L, [place] % (Auto) 9.2, Eos % (Auto) 5.8 H, Baso % (Auto) 0.9, Absolut e Neuts (auto) 2.3, Absolute Lymphs (auto) 0.46 L, Nucleated RBC % 0, Differe ntial Comment SCANNED, Diff Path Review May foll, Platelet Estimate SLT DEC, Anisocytosis RARE, Sodium 143, Potassium 5.1, Chloride 111 H, Carbon Dioxide 27.0, Anion Gap 5, BUN 45 H, Creatinine 2.41 H, Estim Creat Clear Calc 24.82, Est GFR (MDRD) Af Amer 33 L, Est GFR (MDRD) Non-Af 28 L, BUN/Creatinine Ratio 18.7, Glucose 63 L, Calcium 8.2 L 06/25/23 06:53: POC Glucose 82 Micro: Microbiology 06/24/23 Unknown Stool Stool Occult Blood (OSCAR) - Final Occult Blood Positive Physical Exam Const alert, oriented x3 and no apparent distress General Appearance: cooperative and comfortable Orientation / Consciousness: awake HEENT normocephalic, head/scalp atraumatic and hearing grossly normal bilaterally Mouth: oral and palatal mucosa normal Eyes PERRL and EOMs intact bilaterally Neck no lymphadenopathy, supple and no JVD Lymph Lymphatic: no lymphadenopathy noted and no lymphedema noted Resp Resp Narrative: on 2L of oxygen by nasal canula. Cardio regular rate, regular rhythm, S1 normal heart sound, S2 normal heart sound and no murmurs GI normal to inspection, nondistended, normoactive bowel sounds, soft to palpation and non-tender Extremity normal to inspection, full ROM, normal capillary refill and no clubbing, cyanosis or edema General Extremity: no tenderness to palpation of joints or extremities Skin no rashes or lesions noted General Skin Exam: no breakdown Neuro oriented x3, CN's II-XII intact bilaterally, moves all extremities, no focal motor deficits, no sensory deficits noted and deep tendon reflexes 2+ bilaterally Sensorium / Orientation: awake and alert Motor Exam: strength 5/5 throughout and general weakness Psych thought process normal and cooperative Appearance: appropriate Assessment & Plan Assessment/Plan (1) Atrial fibrillation: QUALIFIERS: Atrial fibrillation type: paroxysmal Qualified Code(s): I48.0 - Paroxysmal atrial fibrillation (2) Anemia: QUALIFIERS: Anemia type: iron deficiency Iron deficiency anemia type: unspecified iron deficiency Qualified Code(s): D50.9 - Iron deficiency anemia, unspecified PLAN: 82-year-old gentleman with multiple comorbidities currently being treated with antibiotics for bilateral cellulitis of the lower extremities. His hemoglobin is drifted down to 7. He did have occasional dark stools but no gross blood. Differential diagnosis for this would be upper GI bleed with rapid transit, gastritis, duodenitis. He should undergo an upper endoscopy evaluate of the upper GI tract. PLAN: Plan The findings from the upper endoscopy were as follows : Impressions : - Normal esophagus. - Oozing gastric ulcers with a visible vessel. Injected. Treated with a heater probe. - Non-bleeding gastric ulcer with pigmented material. Treated with argon plasma coagulation (APC). - Non-bleeding gastric ulcers with no stigmata of bleeding. Biopsied. - No gross lesions in the first portion of the duodenum. Recommendations : - Discharge patient to home. - Clear liquid diet today. - No aspirin, ibuprofen, naproxen, or other non-steroidal anti-inflammatory drugs for 7 days. - Await pathology results. - Use Protonix (pantoprazole) 40 mg PO BID. Repeat upper endoscopy in approximately 2 months Charges/Coding Visit Charges Inpatient E&M: 99362 Subs Hosp L3
--- NOTE | 2023-06-25 11:20 | CPS ---
patient denies having or using a home CPAP
--- NOTE | 2023-06-25 12:19 | CASEMGMT ---
Discharge Planning A list of?HH providers including quality and resource use data and consistent with the patient's preferred geographic region, medical needs, and insurance network were printed and provided from the [employer] Guide. Tereza Browne, Discharge Planning Asst.
--- NOTE | 2023-06-25 12:55 | PCM.PN.INT ---
Assessment & Plan Assessment/Plan (1) Acute respiratory failure with hypoxia: (2) Pancytopenia: PLAN: Plan RECOMMENDATIONS: 1. Continue to wean supplemental oxygen to maintain saturations at or above 90%. 2. Okay to discontinue antimicrobials. 3. Transition from IV to p.o. diuretic therapy. 4. Encourage incentive spirometer use and mobilize patient as tolerated. 5. Perform walking oximetry study prior to consideration for discharge home. IMPRESSIONS: 1. Acute hypoxic respiratory failure Most likely secondary to acute decompensated heart failure with preserved ejection fraction/pulmonary hypertension. The patient has been responding avidly to diuretic therapy, with subsequent improvement in his oxygenation status. Cardiology is following to assist with medical management. The patient does have a previous PFT suggesting possible mixed ventilatory defect with a component of COPD. A CT scan completed in 2020 did not have fibrotic changes noted suggesting fluid as a possibility for restriction on PFT. As needed bronchodilators likely sufficient at this time. Anticipate that the patient may require supplemental oxygen at discharge. Perform walking oximetry study prior to consideration for DC home. 2. Acute diastolic CHF with pulmonary hypertension Continue ongoing diuresis as tolerated by hemodynamics and renal function. 3. Hypothyroidism/hyperlipidemia/frequent falls/advanced age/poor historian/pancytopenia/chronic kidney disease Complicates care, management, recovery and prognosis. CODE STATUS has been verified is DNR/DNI. This note was generated with [employer] dictation software. It may contain incorrect words, spelling, and punctuation that were not noted in checking the note before signing. Subjective Subjective The patient was seen and examined at the bedside this morning. Events from the last 24 hours have been reviewed. The patient is currently afebrile, hemodynamically stable and maintaining appropriate oxygen saturations on 2 L/min via nasal cannula. The patient is documented to be overall net -5.7 L for the hospitalization. The patient remains on antimicrobials and scheduled IV diuretics. Objective Data Objective Data The patient's most recent lab work, culture data and imaging studies have all been personally reviewed. Vital Signs: Vital Signs Temp Pulse Resp BP Pulse Ox O2 Del Method O2 Flow Rate 98.2 F 60 16 162/50 H 97 Nasal Cannula 2 06/25/23 09:36 06/25/23 09:36 06/25/23 09:36 06/25/23 09:36 06/25/23 11:52 06/25/23 09:36 06/25/23 11:52 Oxygen Flow Rate (L/min) 2 Oxygen Delivery Method Nasal Cannula Weight: 187 lb 9.814 oz Body Mass Index (BMI) 26.9 Intake & Output: Intake and Output for Last 24 Hours 06/23/23 06/24/23 06/25/23 23:59 23:59 23:59 Intake Total 870 / 870 446.75 / 446.75 720 / 720 Output Total 3900 / 5500 4700 / 4700 1650 / 1650 Balance -3030 / -4630 -4253.25 / -4253.25 -930 / -930 Lab / Micro Data Attestation: I reviewed the patient's lab results. 06/25/23 05:24 06/25/23 05:24 Labs: Laboratory Results - last 24 hr 06/21/23 05:57: Diff Path Review Reviewed 06/22/23 08:37: Diff Path Review Reviewed 06/24/23 10:25: Vitamin B12 370, Folate 21.00 06/25/23 05:24: WBC 3.3 L, RBC 2.13 L, Hgb 7.4 L, Hct 23.9 L, MCV 112.2 H, MCH 34.7 H, MCHC 31.0 L, RDW Std Deviation 71.7 H, RDW Coeff of Chanel 17.2 H, Plt Count 83 L, MPV 10.5, Immature Gran % (Auto) 0.300, Neut % (Auto) 69.7, Lymph % (Auto) 14.1 L, [place] % (Auto) 9.2, Eos % (Auto) 5.8 H, Baso % (Auto) 0.9, Absolute Neuts (auto) 2.3, Absolute Lymphs (auto) 0.46 L, Nucleated RBC % 0, Differential Comment SCANNED, Diff Path Review May foll, Platelet Estimate SLT DEC, Anisocytosis RARE, Sodium 143, Potassium 5.1, Chloride 111 H, Carbon Dioxide 27.0, Anion Gap 5, BUN 45 H, Creatinine 2.41 H, Estim Creat Clear Calc 24.82, Est GFR (MDRD) Af Amer 33 L, Est GFR (MDRD) Non-Af 28 L, BUN/Creatinine Ratio 18.7, Glucose 63 L, Calcium 8.2 L 06/25/23 06:53: POC Glucose 82 Micro: Microbiology 06/24/23 Unknown Stool Stool Occult Blood (OSACR) - Final Occult Blood Positive Physical Exam Const alert and no apparent distress Constitutional Narrative: Sitting in bedside recliner. General Appearance: cooperative HEENT normocephalic and head/scalp atraumatic Eyes PERRL, EOMs intact bilaterally and conjunctivae normal Neck supple General: trachea midline Chest inspection of chest normal Resp normal respiratory effort Auscultation: rales and diminished lung sounds; Negative for rhonchi or wheezes Cardio regular rate and regular rhythm GI normal to inspection, nondistended, normoactive bowel sounds Extremity Extremity Narrative: Wrapped lower extremities General Extremity: Negative for clubbing Skin no rashes or lesions noted Neuro CN's II-XII intact bilaterally and no focal motor deficits Psych cooperative and affect normal Charges/Coding Visit Charges Inpatient E&M: 21573 Subs Hosp L2
[2023-06-25 13:22] LABS: Pathologist Review Reviewed
--- NOTE | 2023-06-25 14:19 | PCM.DC ---
Discharge Instructions Diet Discharge Diet: Low fat / Low cholesterol Activity Discharge Activity: Return to Normal Activity Weight Bearing Status: Weight bearing as tolerated Dressing / Incision Call your doctor if you observe: Fever of 101 or Higher, Shortness of breath, Dizziness, Swelling in the ankles, Chest pain and Increased palpitations (irregular heartbeat) Follow Up Care Test Results: Test results from this visit will be discussed in further detail at your follow-up appointment, if applicable. Discharge Plan Admission Admit Date/Time: 06/20/23 07:33 Primary Reason for Your Visit: aspiration pneumonia, GI bleed, sinus bradycardia Attending Provider: Priya Sheehan Primary Care Provider: Rosa Maria Santacruz Consulting Providers: Lakshmi Carpenter; Kvng James; Oniel Moulton; William Dawson; Robby Lai; Daniel Jimenez; Rufus Bruner; Tierney Menendez RESTAURANT ASSISTANT MANAGER Instructions Patient Instructions: Anemia, Dysphagia Aspiration Tx Additional Instructions / Restrictions: aspirin discontinued due to bleeding peptic ulcer. TO follow up with PCP for decision to be made about if and when to resume aspirin. Amiodarone and carvedilol discontinued due to bradycardia. 30 day event monitor ordered per cardiology o/a of bradycardia Discharge Orders/Prescriptions Prescriptions: New pantoprazole 40 mg tablet,delayed release (DR/EC) 40 mg PO BID Qty: 60 2RF Continued balsalazide [Colazal] 750 mg capsule 2,250 mg PO BID hydralazine 50 mg tablet 50 mg PO BID ferrous sulfate 325 MG tablet 325 mg PO DAILY Patient Comments: Iron supplement vitamin B complex 1 EACH capsule 1 each PO DAILY Patient Comments: Vitamin supplement acetaminophen 500 mg Tablet 1,000 mg PO Q6H PRN PRN (Reason: Pain Score 1-5) Qty: 0 0RF levothyroxine 50 mcg tablet 75 mcg PO DAILY atorvastatin [Lipitor] 40 mg tablet 40 mg PO DAILY Qty: 90 3RF amlodipine 10 mg tablet 10 mg PO DAILY Qty: 90 3RF lisinopril 20 mg tablet 20 mg PO DAILY Qty: 90 3RF Discontinued doxycycline hyclate 100 mg capsule 100 mg PO BID 14 Days Qty: 28 0RF ciprofloxacin HCl 750 mg tablet 750 mg PO BID 14 Days Qty: 28 0RF amiodarone 200 mg tablet See Rx Instructions .ROUTE .COMPLEX Qty: 90 3RF Dose Instruction: TAKE 1 TABLET BY MOUTH DAILY FOR AFIB/FLUTTER Rx Instructions: TAKE 1 TABLET BY MOUTH DAILY FOR AFIB/FLUTTER carvedilol 3.125 mg tablet 3.125 mg PO BID Qty: 180 0RF No Action aspirin 81 mg tablet,delayed release (DR/EC) 81 mg PO DAILY Other Ambulatory Orders: 30 Day Event Recorder Preventi (Urgent) Timeframe: 1 Day Facility: [facility] - Location: Cardiovascular Services Ordered By: Dr. Priya Sheehan Referrals / Follow Up: Rosa Maria Santacruz MD [Primary Care Provider] - 3-5 Days Ye Nino MD [Med Staff - Active Staff] - Within 2 Weeks Irving Horowitz DO [Med Staff - Active Staff] - Within 2 Weeks Disposition Disposition (needs filled in before D/C Order can be placed): Home, Self Care
--- NOTE | 2023-06-25 14:21 | PCM.DC.SUM ---
Providers Date of Admission: 06/20/23 Date of Discharge: 06/25/23 Primary Care Physician: Dr. Rosa Maria Santacruz MD Consultations 06/20/23 09:09 Consult: Cardiology Routine Consulting Provider: Lakshmi Carpenter Reason for Consult: palpitation, severe bradycardia, hypotension recovered EMERGENT Consult: No Notified: Yes Date Notified: 06/20/23 Time Notified: 09:11 Method of Notification: Verbal Consult: Nephrology Routine Consulting Provider: Kvng James Reason for Consult: CKD 4 WITH Hyperkalemia EMERGENT Consult: No Notified: Yes Date Notified: 06/20/23 Time Notified: 09:10 Method of Notification: Verbal 06/20/23 10:38 Consult: Onc/Wound/assurance manager Routine Comment: Reason for Consult:: b/l Leg ulcer chronic 06/21/23 12:33 Consult: Glass Loading Equipment Tender / Pulmonary Medicine Routine Consulting Provider: [facility] Reason for Consult: acute hypoxic respiratory failure due to aspiration pneumonia EMERGENT Consult: No Notified: Yes Date Notified: 06/21/23 Time Notified: 12:33 Method of Notification: Text 06/23/23 10:32 Consult: Gastroenterology Routine Consulting Provider: [facility] Reason for Consult: acute on chronic anemia, dark stools EMERGENT Consult: No Notified: Yes Date Notified: 06/23/23 Time Notified: 10:32 Method of Notification: Text 06/24/23 07:37 Consult: Gastroenterology Routine Consulting Provider: [facility] Reason for Consult: iron deficiency anemia EMERGENT Consult: No Notified: Yes Date Notified: 06/24/23 Time Notified: 07:37 Method of Notification: Text Reason For Visit: PALPITATION, LEG WEAKNESS? Diagnosis Discharge Diagnosis (1) Acute respiratory failure with hypoxia: Status: Acute Code(s): J96.01 - Acute respiratory failure with hypoxia (2) Pancytopenia: Status: Chronic Code(s): D61.818 - Other pancytopenia Plan #Acute hypoxic respiratory failure due to probable aspiration pneumonia now down to 2L of oxygen. speech therapy evaluated him and he was cleared for oral intake. CXR done showed no evidence of pneumonia and showed small bilateral pleural effusion siwth bibasilar atelectasis remains on IV zosyn due to concern for aspiration. titrate oxygen to maintain sats >90% pulmonology on board #Sinus bradycardia had first degree AV block also. troponins were negative carvedilol adn amiodarone on hold cardiology on board has known EF of 60%, with RVSP of severe pulmonary hypertension. carvedilol and amiodarone on hold. #CAD s/p CABG and stents; on aspirin and high intensity statin. Beta anna on hold. #CKD IV with hyperkalemia: hyperkalemia resolved with treatmwnt. Cr is 2.32 today. #Pancytopenia: Hb today was 7.9 yesterday he did complain of dark stools he has a history of PUDx and had EGD in November 2022 which showed bleeding peptic ulcer, which was cauterised. Iron profile showed low iron levels of 34 with low TIBC. Iron saturation at 16.7 was on the lower side of normal and ferritin was elevated mildly at 399. This is more indicative of an anemia of chronic disease picture. gastroenterology consulted. for EGD today. #Ulcerative colitis: on colazal #Hypothyroidism: on synthroid #Hyperlipidemia: on statin #Debility due to frequent falls: PT/OT on board. Fall precautions #History of COPD and emphysema: on had pneumothorax in August 2020 and was sen at [facility] for CT evaluation. Had VATS. DVT prophylaxis; SCDs Medications at Discharge Home Medications ferrous sulfate 325 mg (65 mg iron) tablet 325 mg PO DAILY vitamin 05/28/15 vitamin B complex 1 each PO DAILY vitamin 02/07/16 levothyroxine 50 mcg tablet 75 mcg PO DAILY thyroid 06/13/20 acetaminophen 500 mg tablet 1,000 mg (2 x 500 mg) PO Q6H PRN PRN Pain Score 1-5 #0 tabs 12/19/22 aspirin 81 mg tablet,delayed release 81 mg PO DAILY 04/14/23 atorvastatin 40 mg tablet (Lipitor) 40 mg PO DAILY cholesterol #90 tabs 04/14/23 balsalazide 750 mg capsule (Colazal) 2,250 mg PO BID 04/14/23 hydralazine 50 mg tablet 50 mg PO BID 04/14/23 amlodipine 10 mg tablet 10 mg PO DAILY #90 tabs 05/20/23 lisinopril 20 mg tablet 20 mg PO DAILY #90 tabs 05/21/23 bumetanide 1 mg tablet 1 mg PO DAILY #30 tabs 06/25/23 pantoprazole 40 mg tablet,delayed release 40 mg PO BID #60 tabs 06/25/23 Hospital Course Operations None Procedures None Summary of Care Provided Minutes Spent on Discharge: 55 Hospital Course: Patient is an 82-year-old male with a past medical history as outlined was admitted through the ED on 06/20/2023 with a complaint of palpitations and shortness of breath. His symptoms have been going on for about 3 days prior to admission. The day of admission he fell and said he started having palpitations so he came into the ED. In the ED he was tachypneic though he became hypotensive was also saturating at 86% on room air. Chemistry showed elevated potassium of 5.7 and creatinine of 2.5. Initial troponin was negative. Chest x-ray showed nonspecific left retrocardiac infiltrate. EKG showed first-degree AV block. He was given potassium depleting cocktail for hyperkalemia. He had also had several falls at home including the day before admission. Of note he was also hypoglycemic with a blood sugar of 40 on admission and he was given D10 ampoule. He was admitted and managed for sinus bradycardia. His carvedilol and amiodarone were held. Cardiology was consulted. Hospital course was complicated by patient choking on his food and subsequently requiring up to 10 L of oxygen. He was therefore diagnosed with acute hypoxic respiratory failure due to probable aspiration pneumonia. He was started on IV Zosyn and pulmonology consulted. Speech therapy evaluated him and there was no evidence of dysphagia. Patient was also diuresed as needed. His shortness of breath gradually improved and he was weaned down to 2 L of oxygen. He completed a course of antibiotics. Sputum cultures and blood cultures were negative. Hospital course was complicated by anemia. Gastroenterology was consulted and patient had EGD which showed a normal esophagus and an oozing gastric ulcer with a visible vessel which was injected and treated with heater probe. There was also a nonbleeding gastric ulcer with pigmented material which was treated with argon plasma coagulation and nonbleeding gastric ulcers with no stigmata of bleeding. Patient was placed on clear liquid diet and counseled that he could not be on aspirin for at least 7 days. Aspirin was therefore discontinued at discharge and patient counseled that he would need follow-up with his PCP and mill tender second operator to determine if aspirin should be resumed. His carvedilol and amiodarone were also discontinued per cardiology recommendations at time of discharge and patient had a 30-day event monitor ordered again per cardiology recommendations to evaluate his sinus bradycardia. Patient remained stable and was discharged on 06/25/2023. He was discharged home with home health. He is follow-up with his primary care doctor and cardiology as well as gastroenterology within 1 to 2 weeks. Patient had walking pulse ox which showed that he required 2 L of oxygen at rest and with ambulation. Patient is ambulatory in the community. Patient seen and examined prior to discharge. He felt well and had no active complaints. He had an uneventful night. Review of systems otherwise negative. Labs and vitals reviewed. Home medication reviewed and reconciled. Physical Exam Const alert, oriented x3 and no apparent distress General Appearance: cooperative and comfortable Orientation / Consciousness: awake HEENT normocephalic, head/scalp atraumatic and hearing grossly normal bilaterally Mouth: oral and palatal mucosa normal Eyes PERRL and EOMs intact bilaterally Neck no lymphadenopathy, supple and no JVD Lymph Lymphatic: no lymphadenopathy noted and no lymphedema noted Resp Resp Narrative: on 2L of oxygen by nasal canula. Cardio regular rate, regular rhythm, S1 normal heart sound, S2 normal heart sound and no murmurs GI normal to inspection, nondistended, normoactive bowel sounds, soft to palpation and non-tender Extremity normal to inspection, full ROM, normal capillary refill and no clubbing, cyanosis or edema General Extremity: no tenderness to palpation of joints or extremities Skin no rashes or lesions noted General Skin Exam: no breakdown Neuro oriented x3, CN's II-XII intact bilaterally, moves all extremities, no focal motor deficits, no sensory deficits noted and deep tendon reflexes 2+ bilaterally Sensorium / Orientation: awake and alert Motor Exam: strength 5/5 throughout and general weakness Psych thought process normal and cooperative Appearance: appropriate Weight / BMI Weight Weight: 187 lb 9.814 oz Body Mass Index (BMI) 26.9 ABG / Lab / Microbiology Data 06/25/23 05:24 06/25/23 05:24 Laboratory: Laboratory Results - last 24 hr 06/24/23 10:25: Diff Path Review Reviewed 06/25/23 05:24: WBC 3.3 L, RBC 2.13 L, Hgb 7.4 L, Hct 23.9 L, MCV 112.2 H, MCH 34.7 H, MCHC 31.0 L, RDW Std Deviation 71.7 H, RDW Coeff of Chanel 17.2 H, Plt Count 83 L, MPV 10.5, Immature Gran % (Auto) 0.300, Neut % (Auto) 69.7, Lymph % (Auto) 14.1 L, Blair % (Auto) 9.2, Eos % (Auto) 5.8 H, Baso % (Auto) 0.9, Absolute Neuts (auto) 2.3, Absolute Lymphs (auto) 0.46 L, Nucleated RBC % 0, Differential Comment SCANNED, Diff Path Review October foll, Platelet Estimate SLT DEC, Anisocytosis RARE, Sodium 143, Potassium 5.1, Chloride 111 H, Carbon Dioxide 27.0, Anion Gap 5, BUN 45 H, Creatinine 2.41 H, Estim Creat Clear Calc 24.82, Est GFR (MDRD) Af Amer 33 L, Est GFR (MDRD) Non-Af 28 L, BUN/Creatinine Ratio 18.7, Glucose 63 L, Calcium 8.2 L 06/25/23 06:53: POC Glucose 82 Microbiology: Microbiology 06/24/23 Unknown Stool Stool Occult Blood (OSCAR) - Final Occult Blood Positive D/C Instructions Discharge Diet: Low fat / Low cholesterol Discharge Activity: Return to Normal Activity Weight Bearing Status: Weight bearing as tolerated Call your doctor if you observe: Fever of 101 or Higher, Shortness of breath, Dizziness, Swelling in the ankles, Chest pain and Increased palpitations (irregular heartbeat) Meaningful Use Info Meaningful Use Diagnoses (Choose all that apply): None applicable Discharge Plan Admission Admit Date/Time: 06/20/23 07:33 Primary Reason for Your Visit: aspiration pneumonia, GI bleed, sinus bradycardia Attending Provider: Priya Sheehan Primary Care Provider: Rosa Maria Santacruz Consulting Providers: Lakshmi Carpenter; Kvng James; Oniel Moulton; William Dawson; Robby Lai; Daniel Jimenez; Rufus Bruner; Tierney Menendez CASUALTY INSURANCE CLAIM ADJUSTER Instructions Patient Instructions: Anemia, Dysphagia Aspiration Tx Additional Instructions / Restrictions: aspirin discontinued due to bleeding peptic ulcer. TO follow up with PCP for decision to be made about if and when to resume aspirin. Amiodarone and carvedilol discontinued due to bradycardia. 30 day event monitor ordered per cardiology o/a of bradycardia Discharge Orders/Prescriptions Prescriptions: New pantoprazole 40 mg tablet,delayed release (DR/EC) 40 mg PO BID Qty: 60 2RF bumetanide 1 mg tablet 1 mg PO DAILY Qty: 30 1RF Continued balsalazide [Colazal] 750 mg capsule 2,250 mg PO BID hydralazine 50 mg tablet 50 mg PO BID ferrous sulfate 325 MG tablet 325 mg PO DAILY Patient Comments: Iron supplement vitamin B complex 1 EACH capsule 1 each PO DAILY Patient Comments: Vitamin supplement acetaminophen 500 mg Tablet 1,000 mg PO Q6H PRN PRN (Reason: Pain Score 1-5) Qty: 0 0RF levothyroxine 50 mcg tablet 75 mcg PO DAILY atorvastatin [Lipitor] 40 mg tablet 40 mg PO DAILY Qty: 90 3RF amlodipine 10 mg tablet 10 mg PO DAILY Qty: 90 3RF lisinopril 20 mg tablet 20 mg PO DAILY Qty: 90 3RF Discontinued doxycycline hyclate 100 mg capsule 100 mg PO BID 14 Days Qty: 28 0RF ciprofloxacin HCl 750 mg tablet 750 mg PO BID 14 Days Qty: 28 0RF amiodarone 200 mg tablet See Rx Instructions .ROUTE .COMPLEX Qty: 90 3RF Dose Instruction: TAKE 1 TABLET BY MOUTH DAILY FOR AFIB/FLUTTER Rx Instructions: TAKE 1 TABLET BY MOUTH DAILY FOR AFIB/FLUTTER carvedilol 3.125 mg tablet 3.125 mg PO BID Qty: 180 0RF No Action aspirin 81 mg tablet,delayed release (DR/EC) 81 mg PO DAILY Other Ambulatory Orders: 30 Day Event Recorder Preventi (Urgent) Timeframe: 1 Day Facility: [facility] - Location: Cardiovascular Services Ordered By: Dr. Priya Sheehan Referrals / Follow Up: Rosa Maria Santacruz MD [Primary Care Provider] - 06/27/23 11:20 am Irving Horowitz DO [Med Staff - Active Staff] - Within 2 Weeks Karey Jordan NP, CASUALTY INSURANCE CLAIM ADJUSTER-C [Non-Staff -Ordering Privileges] - 07/18/23 10:30 am Disposition Disposition (needs filled in before D/C Order can be placed): Home, Self Care Charges/Coding Visit Charges Inpatient E&M: 23157 Disch Hosp >30min
--- NOTE | 2023-06-25 15:07 | CASEMGMT ---
Addendum entered by Tereza Browne 06/25/23 15:53: Discharge Planning Patient has been accepted by Summer Echeverria. RN CM updated. Original Note: Discharge Planning HH referral sent to [facility], Summer Echeverria, Carrie, MACARIO, Jassi Chávez, and Jovanny. Tereza Browne, Discharge Planning Asst.
--- NOTE | 2023-06-25 17:05 | PHA.DC_ITS ---
Pharmacy [facility] has performed discharge medication reconciliation and counseling for this patient. Instructed patient that per hospitalist note, do not resume aspirin unless instructed to do so by PCP. 1. BUMETANIDE 1MG PO DAILY 2. PANTOPRAZOLE 40MG PO BID The patient's discharge medication list was reviewed for discrepancies and discrepancies were resolved. The patient was counseled on the following discharge medications and changes in medications for homegoing were reviewed. The Reason for Use, instructions for use, and potential side effects were reviewed for all new medications. The patient's questions regarding all of their medications were answered. The patient was able to verbally demonstrate an understanding of their discharge medications. Medications at Discharge Home Medications ferrous sulfate 325 mg (65 mg iron) tablet 325 mg PO DAILY vitamin 05/28/15 vitamin B complex 1 each PO DAILY vitamin 02/07/16 levothyroxine 50 mcg tablet 75 mcg PO DAILY thyroid 06/13/20 acetaminophen 500 mg tablet 1,000 mg (2 x 500 mg) PO Q6H PRN PRN Pain Score 1-5 #0 tabs 12/19/22 aspirin 81 mg tablet,delayed release 81 mg PO DAILY 04/14/23 atorvastatin 40 mg tablet (Lipitor) 40 mg PO DAILY cholesterol #90 tabs 04/14/23 balsalazide 750 mg capsule (Colazal) 2,250 mg PO BID 04/14/23 hydralazine 50 mg tablet 50 mg PO BID 04/14/23 amlodipine 10 mg tablet 10 mg PO DAILY #90 tabs 05/20/23 lisinopril 20 mg tablet 20 mg PO DAILY #90 tabs 05/21/23 bumetanide 1 mg tablet 1 mg PO DAILY #30 tabs 06/25/23 pantoprazole 40 mg tablet,delayed release 40 mg PO BID #60 tabs 06/25/23
[2023-06-26 12:48] LABS: Pathologist Review Reviewed
== END 2023-06-25 17:58 | disposition home health service (06) | DRG 377 ==
LOC: ED 07:52 → PCU 07:59
PROVIDERS: Internal Medicine Gastroenterology; Nurse Practitioner Adult Health; Admitting Provider Internal Medicine; Emergency Provider Emergency Medicine; PCP Family Medicine; Visit Provider Student in an Organized Health Care Education/Training Program
PROC: 0DJ08ZZ Inspection of Upper Intestinal Tract, Via Natural or Artificial Opening Endoscopic (ICD-10-PCS; CPT 43235; principal; 2023-06-24 11:55)
DX: K25.4 Chronic or unspecified gastric ulcer with hemorrhage (principal); J69.0 Pneumonitis due to inhalation of food and vomit; J96.01 Acute respiratory failure with hypoxia; I50.33 Acute on chronic diastolic (congestive) heart failure; D61.818 Other pancytopenia; N18.4 Chronic kidney disease, stage 4 (severe); L03.115 Cellulitis of right lower limb; I13.0 Hypertensive heart and chronic kidney disease with heart failure and stage 1 through stage 4 chronic kidney disease, or unspecified chronic kidney disease; K51.919 Ulcerative colitis, unspecified with unspecified complications; D62 Acute posthemorrhagic anemia; L03.116 Cellulitis of left lower limb; I27.29 Other secondary pulmonary hypertension; D63.1 Anemia in chronic kidney disease; J43.9 Emphysema, unspecified; I77.1 Stricture of artery; I48.0 Paroxysmal atrial fibrillation; F10.20 Alcohol dependence, uncomplicated; E03.9 Hypothyroidism, unspecified; I44.0 Atrioventricular block, first degree; E78.00 Pure hypercholesterolemia, unspecified; I25.10 Atherosclerotic heart disease of native coronary artery without angina pectoris; E87.5 Hyperkalemia; E16.2 Hypoglycemia, unspecified; K29.50 Unspecified chronic gastritis without bleeding; Y90.9 Presence of alcohol in blood, level not specified; R29.6 Repeated falls; Z66 Do not resuscitate; Z91.198 Patient's noncompliance with other medical treatment and regimen for other reason; Z95.1 Presence of aortocoronary bypass graft; Z95.5 Presence of coronary angioplasty implant and graft; Z79.82 Long term (current) use of aspirin; Z79.899 Other long term (current) drug therapy; Z87.891 Personal history of nicotine dependence
CPT/HCPCS: 11042; 11043; 15275; 36415; 36600; 71045; 71046; 80048; 80069; 80076; 81001; 82274; 82550; 82607; 82728; 82746; 82784; 82803; 82962; 83516; 83540; 83550; 83735; 83880; 84100; 84132; 84439; 84443; 84484; 85025; 86255; 86340; 88305; 88342; 92526; 92610; 93005; 94640; 94668; 97110; 97116; 97162; 97166; 97530; 97535; 99285; J7030; J7040; Q4186; A4216; J0612

== ENCOUNTER → 2023-07-08 | Outpatient (CLI) | payer MEDICARE, OTHER, SELFPAY ==
--- NOTE | 2023-07-08 09:18 | RDU_ITS ---
Reason For Study: Mesenteric artery stenosis Aorta Proximal abdominal aorta 1.54 x 1.57 cm . Proximal abdominal aorta peak systolic velocity is 168.2 cm/sec . Distal abdominal aorta 1.39 x 1.42 cm . Distal abdominal aorta peak systolic velocity is 150 cm/sec . . Celiac artery, 52.4 cm/sec. Hepatic artery, 209.9 cm/sec. Splenic artery, 138.7 cm/sec. SMA, origin, 304.4 cm/sec. SMA, prox, 203.7 cm/sec. SMA, mid, 180.1 cm/sec. SMA, distal, 80.1 cm/sec. LELAND, origin, 641 cm/sec. LELAND, prox, 361.6 cm/sec. LELAND, mid, 146.7 cm/sec. LELAND, distal, 118.8 cm/sec. Procedures Technically difficult due to bowel gas. VL/Renal Artery Duplex Ultrasound Interpretation Summary Celaic <60%. SMA > 60% stenosis. LELAND> 60% stenosis. Ordering Physician: Singh Khanna Referring Physician: Rosa Maria Santacruz M.D. Performed By: Fe Turner RVT
== END | disposition home or self-care (01) ==
LOC: CVS 09:14
PROVIDERS: PCP Family Medicine; Visit Provider Surgery Vascular Surgery
DX: I77.1 Stricture of artery (principal); I10 Essential (primary) hypertension
CPT/HCPCS: 93975

== ENCOUNTER 2023-07-30 14:15 | Outpatient (RCR) | payer MEDICARE, OTHER, SELFPAY ==
[2023-06-30 00:13] VITALS: BP 135/66; PULSE 58; RESP 20; TEMP 36.2
[2023-07-02 13:36] VITALS: BP 147/78; PULSE 83; TEMP 35.8
--- NOTE | 2023-07-02 14:35 | PN.PCM_ITS ---
History of Present Illness Date of Service: 07/02/23 Chief Complaint: Left foot ulcerations History of Wound: Chronic wounds left foot self treatment as well as SNF treatment Subjective Subjective Mr. Arreola is a 82-year-old male presenting for follow-up of bilateral leg ulcerations. Patient was recently in the hospital and seen by medicine and student outreach coordinator that is currently on 2 L of oxygen at home secondary to shortness of breath and wheezing. Patient has been seen by home health care for dressing changes to the bilateral lower extremity. He presents today to the wound care center for follow-up evaluation. He denies any recent falls. He denies constitutional symptoms. No other pedal complaints at this time. Objective Data Objective Data Vital Signs: Vital Signs Temp Pulse Resp BP O2 Del Method 96.5 F L 83 20 H 147/78 H Room Air 07/02/23 13:36 07/02/23 13:36 06/30/23 00:13 07/02/23 13:36 07/02/23 13:36 Oxygen Delivery Method Room Air Physical Exam Narrative Vascular: DP and PT pulses are faintly palpable. CFT is delayed. Evidence of hemosiderin deposits appreciated bilateral lower extremity. Skin temperature great is warm to warm from proximal ankle to distal digit. Nonpitting edema appreciated to the right lower extremity. No focal increase noted. Neurological: Light touch intact. Epic or station is diminished. Patient does not respond to painful stimuli. Dermatological: Full-thickness ulceration appreciated to the left heel with fibrogranular tissue. Wound measures after debridement 1.7 x 0.7 x 0.1 cm. Evidence of full-thickness ulceration secondary to laceration to anterior aspect of the right leg. Right leg central ulceration measures 4.2 x 2.0 x 0.1 cm, inferior ulceration measures 0.1.0 x 0.7 x 0.1 cm, proximal medial leg measures 4.5 x 2.0 x 0.2 cm. All wounds are under percent granular nature. No sign of infection. Excisional debridement with 5 mm dermal curette down to and including subcutaneous tissue to the right anterior leg ulceration without incident. Predebridement measurement is 4.0 x 0.9 x 0.1 cm. Post right measurement is 4.2 x 1.0 x 0.1 cm. Excisional debridement with 5 mm dermal curette down to and including subcutaneous tissue to the right inferior leg ulceration without incident. Predebridement measurement is 0.9 x 0.5 x 0.1 cm. Post right measurement is 1.0 x 0.7 x 0.1 cm. Excisional debridement with 5 mm dermal curette down to and including subcutaneous tissue, to the right proximal medial leg ulceration without incident. Predebridement measurement is 4.2 x 1.8 x 0.2 cm. Post right measurement is 4.5 x 2.0 x 0.2 cm. Excisional debridement with 5 mm dermal curette down to and including s ubcutaneous tissue to the left heel without incident. Predebridement measurement is 0.8 x 0.5 x 0.1 cm. Postdebridement measurement is 1.0 x 0.7 x 0.1 cm. EpiFix 2 x 2 cm graft was applied to the left heel full-thickness ulceration with 100% use. Malaika application. The graft site was free and clear of any infection. The wound/skin graft substitute was dressed with nonadherent bandage secured in place with Steri-Strips followed by bolster dressing as well as a single layer Tubigrip. Musculoskeletal: No pain on palpation or with sharp debridement to both ulcerations to the left foot. No pain with calf compression. Debridement Note Debridement Note Debridement Free Text: Excisional debridement with 5 mm dermal curette down to and including subcutaneous tissue to the right anterior leg ulceration without incident. Predebridement measurement is 4.0 x 0.9 x 0.1 cm. Post right measurement is 4.2 x 1.0 x 0.1 cm. Excisional debridement with 5 mm dermal curette down to and including subcutaneous tissue to the right inferior leg ulceration without incident. Predebridement measurement is 0.9 x 0.5 x 0.1 cm. Post right measurement is 1.0 x 0.7 x 0.1 cm. Excisional debridement with 5 mm dermal curette down to and including subcutaneous tissue, to the right proximal medial leg ulceration without incident. Predebridement measurement is 4.2 x 1.8 x 0.2 cm. Post right measurement is 4.5 x 2.0 x 0.2 cm. Excisional debridement with 5 mm dermal curette down to and including subcutaneo us tissue to the left heel without incident. Predebridement measurement is 0.8 x 0.5 x 0.1 cm. Postdebridement measurement is 1.0 x 0.7 x 0.1 cm. EpiFix 2 x 2 cm graft was applied to the left heel full-thickness ulceration with 100% use. Malaika application. The graft site was free and clear of any infection. The wound/skin graft substitute was dressed with nonadherent bandage secured in place with Steri-Strips followed by bolster dressing as well as a single layer Tubigrip. Post-Debridement Measurements and Additional Note: Post-Debridement Measurements/Treatment - Nurse 1 - General Ulcer Assessment Start: 07/02/23 13:36 Freq: Status: Active Protocol: GE Activity Type Activity Date Activity User E-sign Co-sign Detail Recorded Client Recorded Date Recorded By Document 07/02/23 13:36 Desktop 07/02/23 14:00 07/02/23 13:36 WC - Today's Visit Information Type of service Follow-up Visit (Physician/CHILDREN LIBRARIAN ) Arrival Mode Ambulatory, Walker Transfer Assistance None Patient Identification Verified (Name & Yes ) Patient Requires Transmission-Based No Precautions Vital Signs Temperature (97.8 F-99.1 F) 96.5 F L Temperature Source Temporal Pulse Rate (60-100) 83 Pulse Location Monitor Respiratory rate source Ventilator Oxygen Delivery Method Room Air Blood Pressure (90/60-120/80) 147/78 H Blood Pressure Mean (mm Hg) 101 Source Monitor Position Semi-Fowlers Blood Pressure Location Right Arm History Since Last Visit- (Skip if this is Patient's initial visit) Have you changed medications since your No last visit? Any new allergies or adverse reactions No Had a fall/change in ADL's that may No increase risk of falls Signs or symptoms of abuse and/or No neglect since last visit Have you been in the hospital since your Yes last visit? Has dressing in place as prescribed Yes Has compression in place as prescribed Yes Has offloadiing in place as prescribed N/A Experienced any changes in pain level or No management Left Footwear Regular Shoe Right Footwear Regular Shoe Pain Scale: 0-10 Numeric Is Patient Pain Free? Yes STEVE Hart Nurse 1 - General Ulcer Measurement Start: 07/02/23 13:36 Freq: Status: Active Protocol: Activity Type Activity Date Activity User E-sign Co-sign Detail Recorded Client Recorded Date Recorded By Document 07/02/23 13:36 Desktop 07/02/23 14:00 GM 07/02/23 13:36 Wound Center Nurse 1 #5 R Lutz, Inf -Current Size (cm) - Length 1.0 -Current Size (cm) - Width 0.5 -Current Size (cm) - Depth 0.1 -Total Square Cm 0.50 -Photo Taken No -Epithelialization None Present -Wound Margin Distinct, Outline Attached -Granulation Amt None Present (0 %) -Granulation Quality N/A -Structure Exposed N/A -Texture (Adelina-wound Skin Appearance) Assessed -Moisture (Adelina-wound Skin Appearance) Assessed -Color (Adelina-wound Skin Appearance) Assessed -Temperature (Adelina-wound Skin No Abnormality Appearance) (Pt Warm) -Tenderness on Palpation (Adelina-wound No Skin Appearance) -Ulcer Cleansing Soap and Water -Foul Odor after Cleansing No -Anesthetic Used 5% Lidocaine Gel #4 R Med LE/ Trauma -Current Size (cm) - Length 4.5 -Current Size (cm) - Width 2.0 -Current Size (cm) - Depth 0.2 -Total Square Cm 9.00 -Epithelialization Small 1-33% -Tunneling No -Undermining/Tunneling No -Circular Undermining No -Exudate Type Yellow/Green -Wound Margin Distinct, Outline Attached -Granulation Amt Small (1-33%) -Granulation Quality Red -Slough/Fibrin Yes -Necrosis Amt Medium (34-66%) -Necrotic Tissue Type Adherent Slough -Structure Exposed N/A -Texture (Adelina-wound Skin Appearance) Assessed -Moisture (Adelina-wound Skin Appearance) Assessed -Color (Adelina-wound Skin Appearance) Assessed -Temperature (Adelina-wound Skin No Abnormality Appearance) (Pt Warm) -Tenderness on Palpation (Adelina-wound No Skin Appearance) -Ulcer Cleansing Soap and Water -Foul Odor after Cleansing Yes, Due to Product Use -Anesthetic Used 5% Lidocaine Gel #3 R Lutz -Current Size (cm) - Length 4.1 -Current Size (cm) - Width 1 -Current Size (cm) - Depth 0.1 -Total Square Cm 4.1 -Photo Taken No -Epithelialization None Present -Tunneling No -Undermining/Tunneling No -Circular Undermining No -Exudate Amt Medium -Exudate Type Yellow/Green -Wound Margin Distinct, Outline Attached -Granulation Amt Medium (34-66%) -Granulation Quality Red -Necrosis Amt Medium (34-66%) -Necrotic Tissue Type Adherent Slough -Structure Exposed N/A -Texture (Adelina-wound Skin Appearance) Assessed -Moisture (Adelina-wound Skin Appearance) Assessed -Color (Adelina-wound Skin Appearance) Assessed -Temperature (Adelina-wound Skin No Abnormality Appearance) (Pt Warm) -Tenderness on Palpation (Adelina-wound No Skin Appearance) -Ulcer Cleansing Soap and Water -Foul Odor after Cleansing No -Anesthetic Used 5% Lidocaine Gel #2 L Heel -Current Size (cm) - Length 1 -Current Size (cm) - Width 2.2 -Current Size (cm) - Depth 0.1 -Total Square Cm 2.2 -Epithelialization None Present -Tunneling No -Undermining/Tunneling No -Circular Undermining No -Exudate Amt None Present -Wound Margin Distinct, Outline Attached -Granulation Amt Small (1-33%) -Granulation Quality Normandy -Structure Exposed N/A -Texture (Adelina-wound Skin Appearance) Assessed -Moisture (Adelina-wound Skin Appearance) Assessed -Color (Adelina-wound Skin Appearance) Assessed -Temperature (Adelina-wound Skin No Abnormality Appearance) (Pt Warm) -Tenderness on Palpation (Adelina-wound No Skin Appearance) -Ulcer Cleansing Soap and Water -Foul Odor after Cleansing No -Anesthetic Used 5% Lidocaine Gel Lower Limb Edema Present Yes Right Calf (cm) 37.5 Right Ankle (cm) 21.5 Left Calf (cm) 37 Left Ankle (cm) 21 WC - Nurse 2 - General Ulcer CM Notes Start: 07/02/23 13:36 Freq: Status: Active Protocol: Activity Type Activity Date Activity User E-sign Co-sign Detail Recorded Client Recorded Date Recorded By Document 07/02/23 14:25 Laptop 07/02/23 14:35 07/02/23 14:25 Wound Center Nurse 2 #5 Calvin Lutz, Inf -Time 14:26 -Correct Patient Yes -Correct Side, Site, Position Yes -Correct Procedure Yes -Procedure Performed Yes -Type of Procedure Debridement -Clinical Debridement Subcutaneous -Tissue Removed Subcutaneous -Post Debridement (cm) - Length 1.0 -Post Debridement (cm) - Width 0.7 -Post Debridement (cm) - Depth 0.1 -Total Square (Post) (cm) 0.70 -Area of Debridement (cm) - Length 1.0 -Area of Debridement (cm) - Width 0.7 -Total Square (Area) (cm) 0.70 -Tunneling No -Undermining/Tunneling No -Circular Undermining No -Wound/Ulcer Outcome Not Healed -Ulcer Cleansing Wound Cleanser -Foul Odor after Cleansing No -Bioengineered Tissue No -Bleeding Controlled with Pressure -Treatment Response Procedure Tolerated Well -Offloading No -Debridement - Subq, 1st 20sq cm No #4 R Med LE/ Trauma -Time 14:27 -Correct Patient Yes -Correct Side, Site, Position Yes -Correct Procedure Yes -Procedure Performed Yes -Type of Procedure Debridement -Clinical Debridement Subcutaneous -Tissue Removed Subcutaneous -Post Debridement (cm) - Length 4.5 -Post Debridement (cm) - Width 2.0 -Post Debridement (cm) - Depth 0.2 -Total Square (Post) (cm) 9.00 -Area of Debridement (cm) - Length 4.5 -Area of Debridement (cm) - Width 2.0 -Total Square (Area) (cm) 9.00 -Tunneling No -Undermining/Tunneling No -Circular Undermining No -Wound/Ulcer Outcome Not Healed -Ulcer Cleansing Rinsed/ Irrigated with Saline -Foul Odor after Cleansing No -Bioengineered Tissue No -Bleeding Controlled with Pressure -Treatment Response Procedure Tolerated Well -Offloading No -Debridement - Subq, 1st 20sq cm No #3 R Lutz -Time 14:27 -Correct Patient Yes -Correct Side, Site, Position Yes -Correct Procedure Yes -Procedure Performed Yes -Type of Procedure Debridement -Clinical Debridement Subcutaneous -Tissue Removed Subcutaneous -Post Debridement (cm) - Length 4.2 -Post Debridement (cm) - Width 1.0 -Post Debridement (cm) - Depth 0.1 -Total Square (Post) (cm) 4.20 -Area of Debridement (cm) - Length 4.2 -Area of Debridement (cm) - Width 1.0 -Total Square (Area) (cm) 4.20 -Tunneling No -Undermining/Tunneling No -Circular Undermining No -Wound/Ulcer Outcome Not Healed -Ulcer Cleansing Rinsed/ Irrigated with Saline -Foul Odor after Cleansing No -Bioengineered Tissue No -Bleeding Controlled with Pressure -Treatment Response Procedure Tolerated Well -Offloading No -Debridement - Subq, 1st 20sq cm Yes #2 L Heel -Time 14:32 -Correct Patient Yes -Correct Side, Site, Position Yes -Correct Procedure Yes -Procedure Performed Yes -Type of Procedure Debridement -Clinical Debridement Subcutaneous -Tissue Removed Subcutaneous -Post Debridement (cm) - Length 1.7 -Post Debridement (cm) - Width 1.0 -Post Debridement (cm) - Depth 0.1 -Total Square (Post) (cm) 1.70 -Area of Debridement (cm) - Length 1.7 -Area of Debridement (cm) - Width 1.0 -Total Square (Area) (cm) 1.70 -Tunneling No -Undermining/Tunneling No -Circular Undermining No -Wound/Ulcer Outcome Not Healed -Ulcer Cleansing Rinsed/ Irrigated with Saline -Foul Odor after Cleansing No -Bioengineered Tissue Yes -Type of Bioengineered Tissue Epifix -Expiration Date 02/29/28 -Product Lot Number [id number] -Percent Used 100 -Lot number of Saline Used [id number] -Bleeding Controlled with Pressure -Treatment Response Procedure Tolerated Well -Offloading No -Debridement - Subq, 1st 20sq cm No -Apply Skin Sub - 1st 25 sq cm - Feet 1 -Epifix (per sq cm) 4 Pain Scale: 0-10 Numeric Is Patient Pain Free? Yes Assessment/Plan Assessment/Plan (1) Non-pressure chronic ulcer of unspecified part of right lower leg with fat layer exposed: CODE(S): L97.912 - Non-pressure chronic ulcer of unspecified part of right lower leg with fat layer exposed PLAN: Patient was examined and evaluated. All findings were discussed with the patient. All questions were answered to the patient's satisfaction. Excisional debridement with 5 mm dermal curette down to and including subcutaneous tissue to the right anterior leg ulceration without incident. Predebridement measurement is 4.0 x 0.9 x 0.1 cm. Post right measurement is 4.2 x 1.0 x 0.1 cm. Excisional debridement with 5 mm dermal curette down to and including subcutaneous tissue to the right inferior leg ulceration without incident. Predebridement measurement is 0.9 x 0.5 x 0.1 cm. Post right measurement is 1.0 x 0.7 x 0.1 cm. Excisional debridement with 5 mm dermal curette down to and including subcutaneous tissue, to the right proximal medial leg ulceration without incident. Predebridement measurement is 4.2 x 1.8 x 0.2 cm. Post right measurement is 4.5 x 2.0 x 0.2 cm. Excisional debridement with 5 mm dermal curette down to and including subcutaneous tissue to the left heel without incident. Predebridement measurement is 0.8 x 0.5 x 0.1 cm. Postdebridement measurement is 1.0 x 0.7 x 0.1 cm. EpiFix 2 x 2 cm graft was applied to the left heel full-thickness ulceration with 100% use. Malaika application. The graft site was free and clear of any infection. The wound/skin graft substitute was dressed with nonadherent bandage secured in place with Steri-Strips followed by bolster dressing as well as a single layer Tubigrip. The right lower extremity wounds were dressed with Santyl, moist 4 x 4, dry sterile dressing and a single layer compression bandage. Will begin authorization after 1 more application to left heel for skin graft substitute to the right leg proximal wound. Patient will continue to have home health care change his dressing Friday and Friday and will follow-up at the wound care center on Wednesdays. Educated the patient to use his oxygen at 2 L while at home and when driving per his sales superintendent. Follow-up at the wound care center with Dr. Sampson in 1 week. (2) Non-pressure 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: CODE(S): L97.422 - Non-pressure 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 (3) Peripheral vascular disease: CODE(S): I73.9 - Peripheral vascular disease, unspecified
[2023-07-09 14:08] VITALS: BP 131/39; PULSE 72; RESP 18; TEMP 36; O2SAT 92
--- NOTE | 2023-07-09 15:22 | PCM.WC.PN ---
History of Present Illness Date of Service: 07/09/23 Chief Complaint: Left foot ulcerations History of Wound: Chronic wounds left foot self treatment as well as SNF treatment Subjective Subjective Mr. Arreola is a 82-year-old male presenting for follow-up of bilateral leg ulcerations. Patient is on 2 L of oxygen at home secondary to shortness of breath and wheezing. Patient did not see home health care for dressing changes. Will call for new appt today and time. He presents today to the wound care center for follow-up evaluation. He denies any recent falls. He denies constitutional symptoms. No other pedal complaints at this time. Objective Data Objective Data Vital Signs: Vital Signs Temp Pulse Resp BP Pulse Ox O2 Del Method O2 Flow Rate 96.8 F L 72 18 131/39 H 92 Nasal Cannula 2 07/09/23 14:08 07/09/23 14:08 07/09/23 14:07/09/23 14:07/09/23 14:07/09/23 14:07/09/23 14:08 Oxygen Flow Rate (L/min) 2 Oxygen Delivery Method Nasal Cannula Physical Exam Narrative Vascular: DP and PT pulses are faintly palpable. CFT is delayed. Evidence of hemosiderin deposits appreciated bilateral lower extremity. Skin temperature great is warm to warm from proximal ankle to distal digit. Nonpitting edema appreciated to the right lower extremity. No focal increase noted. Neurological: Light touch intact. Epic or station is diminished. Patient does not respond to painful stimuli. Dermatological: Full-thickness ulceration appreciated to the left heel with fibrogranular tissue. Wound measures after debridement 0.4 x 1.1 x 0.1 cm. Evidence of full-thickness ulceration secondary to laceration to anterior aspect of the right leg. Right leg central ulceration measures 3.8 x 0.7 x 0.1 cm, inferior ulceration measures 0.7 x 0.4 x 0.1 cm, proximal medial leg measures 4.0 x 1.1 x 0.2 cm. All wounds are under percent granular nature. No sign of infection. Excisional debridement with 5 mm dermal curette down to and including subcutaneous tissue to the right anterior leg ulceration without incident. Predebridement measurement is 3.6 x 0.6 x 0.1 cm. Post right measurement is 3.8 x 0.7 x 0.1 cm cm. Excisional debridement with 5 mm dermal curette down to and including subcutaneous tissue to the right inferior leg ulceration without incident. Predebridement measurement is 0.6 x 0.3 x 0.1 cm. Post right measurement is 0.7 x 0.4 x 0.1 cm. Excisional debridement with 5 mm dermal curette down to and including subcutaneous tissue, to the right proximal medial leg ulceration without incident. Predebridement measurement is 3.8 x 1.6 x 0.1 cm. Post right measurement is 4.0 x 1.7 x 0.2 cm. Excisional debridement with 5 mm dermal curette down to and including subcutaneous tissue to the left heel without incident. Predebridement measurement is 0.3 x 0.9 x 0.1 cm. Postdebridement measurement is 0.4 x 1.1 x 0.1 cm. EpiFix 2 x 2 cm graft was applied to the left heel full-thickness ulceration with 100% use. 10th application. The graft site was free and clear of any infection. The wound/skin graft substitute was dressed with nonadherent bandage secured in place with Steri-Strips followed by bolster dressing as well as a single layer Tubigrip. Musculoskeletal: No pain on palpation or with sharp debridement to both ulcerations to the left foot. No pain with calf compression. Debridement Note Debridement Note Debridement Free Text: Excisional debridement with 5 mm dermal curette down to and including subcutaneous tissue to the right anterior leg ulceration without incident. Predebridement measurement is 3.6 x 0.6 x 0.1 cm. Post right measurement is 3.8 x 0.7 x 0.1 cm cm. Excisional debridement with 5 mm dermal curette down to and including subcutaneous tissue to the right inferior leg ulceration without incident. Predebridement measurement is 0.6 x 0.3 x 0.1 cm. Post right measurement is 0.7 x 0.4 x 0.1 cm. Excisional debridement with 5 mm dermal curette down to and including subcutaneous tissue, to the right proximal medial leg ulceration without incident. Predebridement measurement is 3.8 x 1.6 x 0.1 cm. Post right measurement is 4.0 x 1.7 x 0.2 cm. Excisional debridement with 5 mm dermal curette down to and including subcutaneous tissue to the left heel without incident. Predebridement measurement is 0.3 x 0.9 x 0.1 cm. Postdebridement measurement is 0.4 x 1.1 x 0.1 cm. EpiFix 2 x 2 cm graft was applied to the left heel full-thickness ulceration with 100% use. 10th application. The graft site was free and clear of any infection. The wound/skin graft substitute was dressed with nonadherent bandage secured in place with Steri-Strips followed by bolster dressing as well as a single layer Tubigrip. Post-Debridement Measurements and Additional Note: Post-Debridement Measurements/Treatment - Nurse 1 - General Ulcer Assessment Start: 07/02/23 13:36 Freq: Status: Active Protocol: [facility] Activity Type Activity Date Activity User E-sign Co-sign Detail Recorded Client Recorded Date Recorded By Document 07/02/23 13:36 GM Desktop 07/02/23 14:00 GM Document 07/09/23 14:08 KW Desktop 07/09/23 14:19 KW 07/02/23 07/09/23 13:36 14:08 - Today's Visit Information Type of service Follow-up Visit Follow-up Visit (Physician/CALL OR CONTACT CENTRE MANAGER (Physician/CALL OR CONTACT CENTRE MANAGER ) ) Arrival Mode Ambulatory, Ambulatory, Walker Walker Transfer Assistance None Patient Identification Verified (Name & Yes Yes ) Patient Requires Transmission-Based No Precautions Vital Signs Temperature (97.8 F-99.1 F) 96.5 F L 96.8 F L Temperature Source Temporal Temporal Pulse Rate (60-100) 83 72 Pulse Location Monitor Monitor Respiratory Rate (12-18) 18 Respiratory rate source Ventilator Observation Pulse Oximetry 92 Oxygen Delivery Method Room Air Nasal Cannula O2 L/MIN (L/min) 2 Blood Pressure (90/60-120/80) 147/78 H 131/39 H Blood Pressure Mean (mm Hg) 101 69 Source Monitor Monitor Position Semi-Fowlers Semi-Fowlers Blood Pressure Location Right Arm Left Arm History Since Last Visit- (Skip if this is Patient's initial visit) Have you changed medications since your No No last visit? Any new allergies or adverse reactions No No Had a fall/change in ADL's that may No No increase risk of falls Signs or symptoms of abuse and/or No No neglect since last visit Have you been in the hospital since your Yes No last visit? Has dressing in place as prescribed Yes Yes Has compression in place as prescribed Yes Yes Has offloadiing in place as prescribed N/A No Experienced any changes in pain level or No No management Left Footwear Regular Shoe Regular Shoe Right Footwear Regular Shoe Regular Shoe Pain Scale: 0-10 Numeric Is Patient Pain Free? Yes Yes WC - Nurse 1 - General Ulcer Measurement Start: 07/02/23 13:36 Freq: Status: Active Protocol: Activity Type Activity Date Activity User E-sign Co-sign Detail Recorded Client Recorded Date Recorded By Document 07/02/23 13:36 GM Desktop 07/02/23 14:00 GM Document 07/09/23 14:08 KW Desktop 07/09/23 14:19 KW 07/02/23 07/09/23 13:36 14:08 Wound Center Nurse 1 #5 R Lutz, Inf -Current Size (cm) - Length 1.0 0.1 -Current Size (cm) - Width 0.5 0.1 -Current Size (cm) - Depth 0.1 0.1 -Total Square Cm 0.50 0.01 -Photo Taken No -Epithelialization None Present -Exudate Amt Medium -Exudate Type Serosanguineous -Wound Margin Distinct, Distinct, Outline Outline Attached Attached -Granulation Amt None Present (0 %) -Granulation Quality N/A -Structure Exposed N/A -Texture (Adelina-wound Skin Appearance) Assessed Assessed -Moisture (Adelina-wound Skin Appearance) Assessed Assessed -Color (Adelina-wound Skin Appearance) Assessed Assessed -Temperature (Adelina-wound Skin No Abnormality No Abnormality Appearance) (Pt Warm) (Pt Warm) -Tenderness on Palpation (Adelina-wound No Skin Appearance) -Ulcer Cleansing Soap and Water Soap and Water -Foul Odor after Cleansing No -Anesthetic Used 5% Lidocaine 4% Lidocaine Gel Solution -Wound Comment(s) scabbed #4 R Med LE/ Trauma -Current Size (cm) - Length 4.5 3.6 -Current Size (cm) - Width 2.0 1.8 -Current Size (cm) - Depth 0.2 0.2 -Total Square Cm 9.00 6.48 -Epithelialization Small 1-33% -Tunneling No -Undermining/Tunneling No -Circular Undermining No -Exudate Amt Medium -Exudate Type Yellow/Green Serosanguineous -Wound Margin Distinct, Distinct, Outline Outline Attached Attached -Granulation Amt Small (1-33%) Medium (34-66%) -Granulation Quality Red Red -Slough/Fibrin Yes -Necrosis Amt Medium (34-66%) Medium (34-66%) -Necrotic Tissue Type Adherent Slough Adherent Slough -Structure Exposed N/A -Texture (Adelina-wound Skin Appearance) Assessed Assessed -Moisture (Adelina-wound Skin Appearance) Assessed Assessed -Color (Adelina-wound Skin Appearance) Assessed Assessed, Erythema -Temperature (Adelina-wound Skin No Abnormality Appearance) (Pt Warm) -Tenderness on Palpation (Adelina-wound No Skin Appearance) -Ulcer Cleansing Soap and Water Soap and Water -Foul Odor after Cleansing Yes, Due to No Product Use -Anesthetic Used 5% Lidocaine 4% Lidocaine Gel Solution #3 R Lutz -Current Size (cm) - Length 4.1 3.8 -Current Size (cm) - Width 1 0.9 -Current Size (cm) - Depth 0.1 0.1 -Total Square Cm 4.1 3.42 -Photo Taken No -Epithelialization None Present -Tunneling No -Undermining/Tunneling No -Circular Undermining No -Exudate Amt Medium Medium -Exudate Type Yellow/Green Serosanguineous -Wound Margin Distinct, Distinct, Outline Outline Attached Attached -Granulation Amt Medium (34-66%) Medium (34-66%) -Granulation Quality Red Red -Necrosis Amt Medium (34-66%) Small (1-33%) -Necrotic Tissue Type Adherent Slough Adherent Slough -Structure Exposed N/A -Texture (Adelina-wound Skin Appearance) Assessed Assessed -Moisture (Adelina-wound Skin Appearance) Assessed Assessed -Color (Adelina-wound Skin Appearance) Assessed Assessed, Erythema -Temperature (Adelina-wound Skin No Abnormality No Abnormality Appearance) (Pt Warm) (Pt Warm) -Tenderness on Palpation (Adelina-wound No Skin Appearance) -Ulcer Cleansing Soap and Water Soap and Water -Foul Odor after Cleansing No No -Anesthetic Used 5% Lidocaine 4% Lidocaine Gel Solution #2 L Heel -Current Size (cm) - Length 1 0.7 -Current Size (cm) - Width 2.2 2.2 -Current Size (cm) - Depth 0.1 0.1 -Total Square Cm 2.2 1.54 -Epithelialization None Present -Tunneling No -Undermining/Tunneling No -Circular Undermining No -Exudate Amt None Present Medium -Exudate Type Serosanguineous -Wound Margin Distinct, Distinct, Outline Outline Attached Attached -Granulation Amt Small (1-33%) -Granulation Quality [place] -Necrosis Amt Large (67-100%) -Necrotic Tissue Type Adherent Slough -Structure Exposed N/A -Texture (Adelina-wound Skin Appearance) Assessed Callus -Moisture (Adelina-wound Skin Appearance) Assessed Dry/Scaly -Color (Adelina-wound Skin Appearance) Assessed Assessed -Temperature (Adelina-wound Skin No Abnormality No Abnormality Appearance) (Pt Warm) (Pt Warm) -Tenderness on Palpation (Adelina-wound No Skin Appearance) -Ulcer Cleansing Soap and Water Soap and Water -Foul Odor after Cleansing No -Anesthetic Used 5% Lidocaine 4% Lidocaine Gel Solution Lower Limb Edema Present Yes Right Calf (cm) 37.5 Right Ankle (cm) 21.5 Left Calf (cm) 37 Left Ankle (cm) 21 WC - Nurse 2 - General Ulcer CM Notes Start: 07/02/23 13:36 Freq: Status: Active Protocol: Activity Type Activity Date Activity User E-sign Co-sign Detail Recorded Client Recorded Date Recorded By Document 07/02/23 14:25 [employer] Laptop 07/02/23 14:35 Document 07/09/23 14:35 Laptop 07/09/23 14:48 07/02/23 07/09/23 14:25 14:35 Wound Center Nurse 2 #5 R Lutz, Inf -Time 14:26 14:35 -Correct Patient Yes Yes -Correct Side, Site, Position Yes Yes -Correct Procedure Yes Yes -Procedure Performed Yes Yes -Type of Procedure Debridement Debridement -Clinical Debridement Subcutaneous Subcutaneous -Tissue Removed Subcutaneous Subcutaneous -Post Debridement (cm) - Length 1.0 0.7 -Post Debridement (cm) - Width 0.7 0.4 -Post Debridement (cm) - Depth 0.1 0.1 -Total Square (Post) (cm) 0.70 0.28 -Area of Debridement (cm) - Length 1.0 0.7 -Area of Debridement (cm) - Width 0.7 0.4 -Total Square (Area) (cm) 0.70 0.28 -Tunneling No No -Undermining/Tunneling No No -Circular Undermining No No -Wound/Ulcer Outcome Not Healed Not Healed -Ulcer Cleansing Wound Cleanser Rinsed/ Irrigated with Saline -Foul Odor after Cleansing No No -Bioengineered Tissue No No -Bleeding Controlled with Pressure Pressure -Treatment Response Procedure Procedure Tolerated Well Tolerated Well -Offloading No No -Debridement - Subq, 1st 20sq cm No No #4 R Med LE/ Trauma -Time 14: 14:36 -Correct Patient Yes Yes -Correct Side, Site, Position Yes Yes -Correct Procedure Yes Yes -Procedure Performed Yes Yes -Type of Procedure Debridement Debridement -Clinical Debridement Subcutaneous Subcutaneous -Tissue Removed Subcutaneous Subcutaneous -Post Debridement (cm) - Length 4.5 4.0 -Post Debridement (cm) - Width 2.0 1.7 -Post Debridement (cm) - Depth 0.2 0.2 -Total Square (Post) (cm) 9.00 6.80 -Area of Debridement (cm) - Length 4.5 4.0 -Area of Debridement (cm) - Width 2.0 1.7 -Total Square (Area) (cm) 9.00 6.80 -Tunneling No No -Undermining/Tunneling No No -Circular Undermining No No -Wound/Ulcer Outcome Not Healed Not Healed -Ulcer Cleansing Rinsed/ Rinsed/ Irrigated with Irrigated with Saline Saline -Foul Odor after Cleansing No No -Bioengineered Tissue No No -Bleeding Controlled with Pressure Pressure -Treatment Response Procedure Procedure Tolerated Well Tolerated Well -Offloading No No -Debridement - Subq, 1st 20sq cm No No #3 R Lutz -Time 14: 14:36 -Correct Patient Yes Yes -Correct Side, Site, Position Yes Yes -Correct Procedure Yes Yes -Procedure Performed Yes Yes -Type of Procedure Debridement Debridement -Clinical Debridement Subcutaneous Subcutaneous -Tissue Removed Subcutaneous Subcutaneous -Post Debridement (cm) - Length 4.2 3.8 -Post Debridement (cm) - Width 1.0 0.7 -Post Debridement (cm) - Depth 0.1 0.1 -Total Square (Post) (cm) 4.20 2.66 -Area of Debridement (cm) - Length 4.2 3.8 -Area of Debridement (cm) - Width 1.0 0.7 -Total Square (Area) (cm) 4.20 2.66 -Tunneling No No -Undermining/Tunneling No No -Circular Undermining No No -Wound/Ulcer Outcome Not Healed Not Healed -Ulcer Cleansing Rinsed/ Rinsed/ Irrigated with Irrigated with Saline Saline -Foul Odor after Cleansing No No -Bioengineered Tissue No No -Bleeding Controlled with Pressure Pressure -Treatment Response Procedure Procedure Tolerated Well Tolerated Well -Offloading No No -Debridement - Subq, 1st 20sq cm Yes Yes #2 L Heel -Time 14:32 14:36 -Correct Patient Yes Yes -Correct Side, Site, Position Yes Yes -Correct Procedure Yes Yes -Procedure Performed Yes Yes -Type of Procedure Debridement Debridement -Clinical Debridement Subcutaneous Subcutaneous -Tissue Removed Subcutaneous Subcutaneous -Post Debridement (cm) - Length 1.7 1.1 -Post Debridement (cm) - Width 1.0 0.4 -Post Debridement (cm) - Depth 0.1 0.1 -Total Square (Post) (cm) 1.70 0.44 -Area of Debridement (cm) - Length 1.7 1.1 -Area of Debridement (cm) - Width 1.0 0.4 -Total Square (Area) (cm) 1.70 0.44 -Tunneling No No -Undermining/Tunneling No No -Circular Undermining No No -Wound/Ulcer Outcome Not Healed Not Healed -Ulcer Cleansing Rinsed/ Rinsed/ Irrigated with Irrigated with Saline Saline -Foul Odor after Cleansing No No -Bioengineered Tissue Yes Yes -Type of Bioengineered Tissue Epifix Epifix 18mm Disc -Expiration Date 02/29/28 02/29/28 -Product Lot Number [id number] -Percent Used 100 100 -Lot number of Saline Used [id number] -Bleeding Controlled with Pressure Pressure -Treatment Response Procedure Procedure Tolerated Well Tolerated Well -Offloading No No -Debridement - Subq, 1st 20sq cm No No -Apply Skin Sub - 1st 25 sq cm - Feet 1 1 -Epifix (per sq cm) 4 -Epifix 18mm Disc 3 Pain Scale: 0-10 Numeric Is Patient Pain Free? Yes Yes - Nurse 3 - General Ulcer D/C NN Start: 07/02/23 13:36 Freq: Status: Active Protocol: Activity Type Activity Date Activity User E-sign Co-sign Detail Recorded Client Recorded Date Recorded By Document 07/02/23 14:56 GM Desktop 01/03/24 14:58 GM Document 07/09/23 14:54 KW Desktop 07/09/23 14:54 KW 07/02/23 07/09/23 14:56 14:54 Wound Care Center Nurse 3 #5 R Lutz, Inf -Ulcer Cleansing Not Cleansed -Foul Odor after Cleansing No -Negative Pressure Wound Therapy N/A -Primary Dressing Covered/Secured with Dry Gauze,Dry Dry Gauze & Gauze & Roll Roll Gauze, Gauze,Secured Secured with with Tape Tape #4 R Med LE/ Trauma -Ulcer Cleansing Not Cleansed -Foul Odor after Cleansing No -Negative Pressure Wound Therapy N/A -Primary Dressing Covered/Secured with Dry Gauze,Dry Dry Gauze & Gauze & Roll Roll Gauze, Gauze,Secured Secured with with Tape Tape #3 R Lutz -Ulcer Cleansing Not Cleansed -Foul Odor after Cleansing No -Negative Pressure Wound Therapy N/A -Primary Dressing Covered/Secured with Dry Gauze,Dry Dry Gauze Gauze & Roll Gauze,Secured with Tape #2 L Heel -Ulcer Cleansing Not Cleansed -Negative Pressure Wound Therapy N/A -Primary Dressing Covered/Secured with Dry Gauze,Dry Dry Gauze & Gauze & Roll Roll Gauze, Gauze,Secured Secured with with Tape Tape Right -Tubular Bandage Double Layer Double Layer -Size of Tubigrip Used Size D Size D -Size D ($) 2 2 Left -Lotion applied to leg before No compression wrap -Tubular Bandage Double Layer Double Layer -Size of Tubigrip Used Size D Size D -Size D ($) 2 2 Pain Scale: 0-10 Numeric Is Patient Pain Free? Yes Yes Teaching: Wound Center Eliminating Foot Pressure -Person Taught Patient -Teaching Method Discussion -Response to teaching Verbalize understanding Dressing Your Wound -Person Taught Patient -Teaching Method Demonstration -Response to teaching Verbalize understanding WC - Visit Discharge Discharge Condition Stable Stable Ambulatory Status Ambulatory, Ambulatory, Walker Walker Transportation Private Auto Private Auto Medication Reconcilliation completed & Yes No provided to patient/care provider Clinical Summary of Care Provided Yes Yes Assessment/Plan Assessment/Plan (1) Non-pressure 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: CODE(S): L97.422 - Non-pressure 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 PLAN: Patient was examined and evaluated. All findings were discussed with the patient. All questions were answered to the patient's satisfaction. Excisional debridement with 5 mm dermal curette down to and including subcutaneous tissue to the right anterior leg ulceration without incident. Predebridement measurement is 3.6 x 0.6 x 0.1 cm. Post right measurement is 3.8 x 0.7 x 0.1 cm cm. Excisional debridement with 5 mm dermal curette down to and including subcutaneous tissue to the right inferior leg ulceration without incident. Predebridement measurement is 0.6 x 0.3 x 0.1 cm. Post right measurement is 0.7 x 0.4 x 0.1 cm. Excisional debridement with 5 mm dermal curette down to and including subcutaneous tissue, to the right proximal medial leg ulceration without incident. Predebridement measurement is 3.8 x 1.6 x 0.1 cm. Post right measurement is 4.0 x 1.7 x 0.2 cm. Excisional debridement with 5 mm dermal curette down to and including subcutaneous tissue to the left heel without incident. Predebridement measurement is 0.3 x 0.9 x 0.1 cm. Postdebridement measurement is 0.4 x 1.1 x 0.1 cm. EpiFix 2 x 2 cm graft was applied to the left heel full-thickness ulceration with 100% use. 10th application. The graft site was free and clear of any infection. The wound/skin graft substitute was dressed with nonadherent bandage secured in place with Steri-Strips followed by bolster dressing as well as a single layer Tubigrip. Follow-up at the wound care center with Dr. Sampson in 1 week. (2) Non-pressure chronic ulcer of unspecified part of right lower leg with fat layer exposed: CODE(S): L97.912 - Non-pressure chronic ulcer of unspecified part of right lower leg with fat layer exposed (3) Edema: CODE(S): R60.9 - Edema, unspecified
[2023-07-16 14:26] VITALS: BP 169/56; PULSE 69; RESP 18; TEMP 36.1; O2SAT 100
--- NOTE | 2023-07-16 15:12 | PN.PCM_ITS ---
History of Present Illness Date of Service: 07/16/23 Chief Complaint: Left foot ulcerations History of Wound: Chronic wounds left foot self treatment as well as SNF treatment Subjective Subjective Mr. Arreola is a 82-year-old male presenting for follow-up of bilateral leg ulcerations. Patient is on 2 L of oxygen at home secondary to shortness of breath and wheezing. Patient states that home health care has not come to his home for dressing changes even though attempts were made to reach out to the home health care facility. He presents today to the wound care center for follow-up evaluation. He denies any recent falls. He denies constitutional symptoms. No other pedal complaints at this time. Objective Data Objective Data Vital Signs: Vital Signs Temp Pulse Resp BP Pulse Ox O2 Del Method O2 Flow Rate 96.9 F L 69 18 169/56 H 100 Nasal Cannula 2 07/16/23 14:26 07/16/23 14:26 07/16/23 14:26 07/16/23 14:26 07/16/23 14:26 07/16/23 14:26 07/16/23 14:26 Oxygen Flow Rate (L/min) 2 Oxygen Delivery Method Nasal Cannula Physical Exam Narrative Vascular: DP and PT pulses are faintly palpable. CFT is delayed. Evidence of hemosiderin deposits appreciated bilateral lower extremity. Skin temperature great is warm to warm from proximal ankle to distal digit. Nonpitting edema appreciated to the right lower extremity. No focal increase noted. Neurological: Light touch intact. Epic or station is diminished. Patient does not respond to painful stimuli. Dermatological: Full-thickness ulceration appreciated to the left heel which is now healed. The callus measures 0.1 x 0.1 x 0.1 cm. Evidence of full-thickness ulceration secondary to laceration to anterior aspect of the right leg. Right leg central ulceration measures 3.5 x 0.5 x 0.1 cm, inferior ulceration is not healed, proximal medial leg measures 4.0 x 1.7 x 0.2 cm. All wounds are under percent granular nature. No sign of infection. Excisional debridement with 5 mm dermal curette down to and including subcutaneous tissue to the right anterior leg ulceration without incident. Predebridement measurement is 3.4 x 0.4 x 0.1 cm. Post right measurement is 3.5 x 0.5 x 0.1 cm cm. Excisional debridement with 5 mm dermal curette down to and including subcutaneous tissue, to the right proximal medial leg ulceration without incident. Predebridement measurement is 3.9 x 1.5 x 0.1 cm. Post right measurement is 4.0 x 1.7 x 0.2 cm. EpiFix Mesh 4 x 4.5 cm was applied to the right proximal full-thickness ulceration with 100% use. First application. The graft site was free and clear of any infection. The wound/skin graft substitute was dressed with nonadherent bandage secured in place with Steri-Strips followed by bolster dressing as well as a double layer Tubigrip. Musculoskeletal: No pain on palpation or with sharp debridement to both ulcerations to the left foot. No pain with calf compression. Debridement Note Debridement Note Debridement Free Text: Excisional debridement with 5 mm dermal curette down to and including subcutaneous tissue to the right anterior leg ulceration without incident. Predebridement measurement is 3.4 x 0.4 x 0.1 cm. Post right measurement is 3.5 x 0.5 x 0.1 cm cm. Excisional debridement with 5 mm dermal curette down to and including subcutaneous tissue, to the right proximal medial leg ulceration without incident. Predebridement measurement is 3.9 x 1.5 x 0.1 cm. Post right measurement is 4.0 x 1.7 x 0.2 cm. EpiFix Mesh 4 x 4.5 cm was applied to the right proximal full-thickness ulceration with 100% use. First application. The graft site was free and clear of any infection. The wound/skin graft substitute was dressed with nonadherent bandage secured in place with Steri-Strips followed by bolster dressing as well as a double layer Tubigrip. Post-Debridement Measurements and Additional Note: Post-Debridement Measurements/Treatment STEVE - Nurse 1 - General Ulcer Assessment Start: 07/02/23 13:36 Freq: Status: Active Protocol: GE Activity Type Activity Date Activity User E-sign Co-sign Detail Recorded Client Recorded Date Recorded By Document 07/02/23 13:36 GM Desktop 07/02/23 14:00 GM Document 07/09/23 14:08 KW Desktop 07/09/23 14:19 KW Document 07/16/23 14:26 KW Desktop 07/16/23 14:48 KW 07/02/23 07/09/23 07/16/23 13:36 14:08 14:26 - Today's Visit Information Type of service Follow-up Visit Follow-up Visit Follow-up Visit (Physician/HORIZONTAL [employer] SET UP OPERATOR (Physician/HORIZONTAL [employer]ORING MILL SET UP OPERATOR (Physician/HORIZONTAL BORING MILL SET UP OPERATOR ) ) ) Arrival Mode Ambulatory, Ambulatory, Ambulatory, Walker Walker Walker Transfer Assistance None Patient Identification Verified (Name & Yes Yes Yes ) Patient Requires Transmission-Based No Precautions Vital Signs Temperature (97.8 F-99.1 F) 96.5 F L 96.8 F L 96.9 F L Temperature Source Temporal Temporal Temporal Pulse Rate (60-100) 83 72 69 Pulse Location Monitor Monitor Monitor Respiratory Rate (12-18) 18 18 Respiratory rate source Ventilator Observation Observation Pulse Oximetry 92 100 Oxygen Delivery Method Room Air Nasal Cannula Nasal Cannula O2 L/MIN (L/min) 2 2 Blood Pressure (90/60-120/80) 147/78 H 131/39 H 169/56 H Blood Pressure Mean (mm Hg) 101 69 93 Source Monitor Monitor Monitor Position Semi-Fowlers Semi-Fowlers Semi-Fowlers Blood Pressure Location Right Arm Left Arm Right Arm History Since Last Visit- (Skip if this is Patient's initial visit) Have you changed medications since your No No No last visit? Any new allergies or adverse reactions No No No Had a fall/change in ADL's that may No No No increase risk of falls Signs or symptoms of abuse and/or No No No neglect since last visit Have you been in the hospital since your Yes No No last visit? Has dressing in place as prescribed Yes Yes Yes Has compression in place as prescribed Yes Yes Yes Has offloadiing in place as prescribed N/A No N/A Experienced any changes in pain level or No No No management Left Footwear Regular Shoe Regular Shoe Regular Shoe Right Footwear Regular Shoe Regular Shoe Regular Shoe Pain Scale: 0-10 Numeric Is Patient Pain Free? Yes Yes Yes - Nurse 1 - General Ulcer Measurement Start: 07/02/23 13:36 Freq: Status: Active Protocol: Activity Type Activity Date Activity User E-sign Co-sign Detail Recorded Client Recorded Date Recorded By Document 07/02/23 13:36 Desktop 07/02/23 14:00 Document 07/09/23 14:08 Desktop 07/09/23 14:19 KW Document 07/16/23 14:26 KW Desktop 07/16/23 14:48 KW 07/02/23 07/09/23 07/16/23 13:36 14:08 14:26 Wound Center Nurse 1 #5 R Lutz, Inf -Current Size (cm) - Length 1.0 0.1 0.1 -Current Size (cm) - Width 0.5 0.1 0.1 -Current Size (cm) - Depth 0.1 0.1 0.1 -Total Square Cm 0.50 0.01 0.01 -Date of Last Picture (Recall this 07/16/23 field) -Photo Taken No Yes -Epithelialization None Present -Exudate Amt Medium -Exudate Type Serosanguineous -Wound Margin Distinct, Distinct, Outline Outline Attached Attached -Granulation Amt None Present (0 %) -Granulation Quality N/A -Structure Exposed N/A -Texture (Adelina-wound Skin Appearance) Assessed Assessed Assessed -Moisture (Adelina-wound Skin Appearance) Assessed Assessed Assessed -Color (Adelina-wound Skin Appearance) Assessed Assessed Assessed -Temperature (Adelina-wound Skin No Abnormality No Abnormality No Abnormality Appearance) (Pt Warm) (Pt Warm) (Pt Warm) -Tenderness on Palpation (Adelina-wound No No Skin Appearance) -Ulcer Cleansing Soap and Water Soap and Water Soap and Water -Foul Odor after Cleansing No -Anesthetic Used 5% Lidocaine 4% Lidocaine 4% Lidocaine Gel Solution Solution -Wound Comment(s) scabbed scabbed #4 R Med LE/ Trauma -Current Size (cm) - Length 4.5 3.6 3.5 -Current Size (cm) - Width 2.0 1.8 2.5 -Current Size (cm) - Depth 0.2 0.2 0.1 -Total Square Cm 9.00 6.48 8.75 -Date of Last Picture (Recall this 07/16/23 field) -Photo Taken Yes -Epithelialization Small 1-33% -Tunneling No -Undermining/Tunneling No -Circular Undermining No -Exudate Amt Medium Medium -Exudate Type Yellow/Green Serosanguineous Serosanguineous -Wound Margin Distinct, Distinct, Distinct, Outline Outline Outline Attached Attached Attached -Granulation Amt Small (1-33%) Medium (34-66%) Medium (34-66%) -Granulation Quality Red Red Red -Slough/Fibrin Yes -Necrosis Amt Medium (34-66%) Medium (34-66%) Medium (34-66%) -Necrotic Tissue Type Adherent Slough Adherent Slough Adherent Slough -Structure Exposed N/A -Texture (Adelina-wound Skin Appearance) Assessed Assessed Assessed -Moisture (Adelina-wound Skin Appearance) Assessed Assessed Maceration -Color (Adelina-wound Skin Appearance) Assessed Assessed, Assessed Erythema -Temperature (Adelina-wound Skin No Abnormality No Abnormality Appearance) (Pt Warm) (Pt Warm) -Tenderness on Palpation (Adelina-wound No Skin Appearance) -Ulcer Cleansing Soap and Water Soap and Water Soap and Water -Foul Odor after Cleansing Yes, Due to No Product Use -Anesthetic Used 5% Lidocaine 4% Lidocaine 4% Lidocaine Gel Solution Solution #3 R Lutz -Current Size (cm) - Length 4.1 3.8 2.9 -Current Size (cm) - Width 1 0.9 0.6 -Current Size (cm) - Depth 0.1 0.1 0.1 -Total Square Cm 4.1 3.42 1.74 -Date of Last Picture (Recall this 07/16/23 field) -Photo Taken No Yes -Epithelialization None Present -Tunneling No -Undermining/Tunneling No -Circular Undermining No -Exudate Amt Medium Medium Small -Exudate Type Yellow/Green Serosanguineous Serosanguineous -Wound Margin Distinct, Distinct, Distinct, Outline Outline Outline Attached Attached Attached -Granulation Amt Medium (34-66%) Medium (34-66%) Large (67-100%) -Granulation Quality Red Red Red -Necrosis Amt Medium (34-66%) Small (1-33%) Small (1-33%) -Necrotic Tissue Type Adherent Slough Adherent Slough Adherent Slough -Structure Exposed N/A -Texture (Adelina-wound Skin Appearance) Assessed Assessed Assessed -Moisture (Adelina-wound Skin Appearance) Assessed Assessed Assessed,Dry/ Scaly -Color (Adelina-wound Skin Appearance) Assessed Assessed, Assessed Erythema -Temperature (Adelina-wound Skin No Abnormality No Abnormality No Abnormality Appearance) (Pt Warm) (Pt Warm) (Pt Warm) -Tenderness on Palpation (Adelina-wound No Skin Appearance) -Ulcer Cleansing Soap and Water Soap and Water Soap and Water -Foul Odor after Cleansing No No -Anesthetic Used 5% Lidocaine 4% Lidocaine 4% Lidocaine Gel Solution Solution #2 L Heel -Current Size (cm) - Length 1 0.7 2.1 -Current Size (cm) - Width 2.2 2.2 0.5 -Current Size (cm) - Depth 0.1 0.1 0.1 -Total Square Cm 2.2 1.54 1.05 -Date of Last Picture (Recall this 07/16/23 field) -Photo Taken Yes -Epithelialization None Present -Tunneling No -Undermining/Tunneling No -Circular Undermining No -Exudate Amt None Present Medium -Exudate Type Serosanguineous -Wound Margin Distinct, Distinct, Outline Outline Attached Attached -Granulation Amt Small (1-33%) -Granulation Quality [place] -Necrosis Amt Large (67-100%) -Necrotic Tissue Type Adherent Slough -Structure Exposed N/A -Texture (Adelina-wound Skin Appearance) Assessed Callus Assessed -Moisture (Adelina-wound Skin Appearance) Assessed Dry/Scaly Assessed,Dry/ Scaly -Color (Adelina-wound Skin Appearance) Assessed Assessed Assessed -Temperature (Adelina-wound Skin No Abnormality No Abnormality No Abnormality Appearance) (Pt Warm) (Pt Warm) (Pt Warm) -Tenderness on Palpation (Adelina-wound No Skin Appearance) -Ulcer Cleansing Soap and Water Soap and Water Soap and Water -Foul Odor after Cleansing No -Anesthetic Used 5% Lidocaine 4% Lidocaine 4% Lidocaine Gel Solution Solution -Wound Comment(s) scabbed Lower Limb Edema Present Yes Right Calf (cm) 37.5 38.5 Right Ankle (cm) 21.5 20.3 Left Calf (cm) 37 38.5 Left Ankle (cm) 21 20.8 WC - Nurse 2 - General Ulcer CM Notes Start: 07/02/23 13:36 Freq: Status: Active Protocol: Activity Type Activity Date Activity User E-sign Co-sign Detail Recorded Client Recorded Date Recorded By Document 07/02/23 14:25 Laptop 07/02/23 14:35 Document 07/09/23 14:35 Laptop 07/09/23 14:48 Document 07/16/23 15:05 Laptop 07/16/23 15:11 07/02/23 07/09/23 07/16/23 14:25 14:35 15:05 Wound Center Nurse 2 #5 R Lutz, Inf -Time 14:26 14:35 -Correct Patient Yes Yes No -Correct Side, Site, Position Yes Yes No -Correct Procedure Yes Yes No -Procedure Performed Yes Yes No -Type of Procedure Debridement Debridement -Clinical Debridement Subcutaneous Subcutaneous -Tissue Removed Subcutaneous Subcutaneous -Post Debridement (cm) - Length 1.0 0.7 0 -Post Debridement (cm) - Width 0.7 0.4 0 -Post Debridement (cm) - Depth 0.1 0.1 0 -Total Square (Post) (cm) 0.70 0.28 0 -Area of Debridement (cm) - Length 1.0 0.7 0 -Area of Debridement (cm) - Width 0.7 0.4 0 -Total Square (Area) (cm) 0.70 0.28 0 -Tunneling No No -Undermining/Tunneling No No -Circular Undermining No No -Wound/Ulcer Outcome Not Healed Not Healed Healed- Epithelialized -Ulcer Cleansing Wound Cleanser Rinsed/ Irrigated with Saline -Foul Odor after Cleansing No No -Bioengineered Tissue No No -Bleeding Controlled with Pressure Pressure -Treatment Response Procedure Procedure Tolerated Well Tolerated Well -Offloading No No -Debridement - Subq, 1st 20sq cm No No #4 R Med LE/ Trauma -Time 14: 14:36 15:05 -Correct Patient Yes Yes Yes -Correct Side, Site, Position Yes Yes Yes -Correct Procedure Yes Yes Yes -Procedure Performed Yes Yes Yes -Type of Procedure Debridement Debridement Debridement -Clinical Debridement Subcutaneous Subcutaneous Subcutaneous -Tissue Removed Subcutaneous Subcutaneous Subcutaneous -Post Debridement (cm) - Length 4.5 4.0 4.0 -Post Debridement (cm) - Width 2.0 1.7 1.7 -Post Debridement (cm) - Depth 0.2 0.2 0.2 -Total Square (Post) (cm) 9.00 6.80 6.80 -Area of Debridement (cm) - Length 4.5 4.0 4.0 -Area of Debridement (cm) - Width 2.0 1.7 1.7 -Total Square (Area) (cm) 9.00 6.80 6.80 -Tunneling No No No -Undermining/Tunneling No No No -Circular Undermining No No No -Wound/Ulcer Outcome Not Healed Not Healed Not Healed -Ulcer Cleansing Rinsed/ Rinsed/ Rinsed/ Irrigated with Irrigated with Irrigated with Saline Saline Saline -Foul Odor after Cleansing No No No -Bioengineered Tissue No No Yes -Type of Bioengineered Tissue Epifix Mesh -Expiration Date 02/29/28 -Product Lot Number [id number] -Percent Used 100 -Lot number of Saline Used [id number] -Bleeding Controlled with Pressure Pressure Pressure -Treatment Response Procedure Procedure Procedure Tolerated Well Tolerated Well Tolerated Well -Offloading No No No -Debridement - Subq, 1st 20sq cm No No No -Apply Skin Sub - 1st 25 sq cm - Legs 1 -Epifix Mesh (per sq cm) 11 #3 R Lutz -Time 14:27 14:36 15:06 -Correct Patient Yes Yes Yes -Correct Side, Site, Position Yes Yes Yes -Correct Procedure Yes Yes Yes -Procedure Performed Yes Yes Yes -Type of Procedure Debridement Debridement Debridement -Clinical Debridement Subcutaneous Subcutaneous Subcutaneous -Tissue Removed Subcutaneous Subcutaneous Subcutaneous -Post Debridement (cm) - Length 4.2 3.8 3.5 -Post Debridement (cm) - Width 1.0 0.7 0.5 -Post Debridement (cm) - Depth 0.1 0.1 0.1 -Total Square (Post) (cm) 4.20 2.66 1.75 -Area of Debridement (cm) - Length 4.2 3.8 3.5 -Area of Debridement (cm) - Width 1.0 0.7 0.5 -Total Square (Area) (cm) 4.20 2.66 1.75 -Tunneling No No No -Undermining/Tunneling No No No -Circular Undermining No No No -Wound/Ulcer Outcome Not Healed Not Healed Not Healed -Ulcer Cleansing Rinsed/ Rinsed/ Rinsed/ Irrigated with Irrigated with Irrigated with Saline Saline Saline -Foul Odor after Cleansing No No No -Bioengineered Tissue No No No -Bleeding Controlled with Pressure Pressure Pressure -Treatment Response Procedure Procedure Procedure Tolerated Well Tolerated Well Tolerated Well -Offloading No No No -Debridement - Subq, 1st 20sq cm Yes Yes Yes #2 L Heel -Time 14:32 14:36 -Correct Patient Yes Yes No -Correct Side, Site, Position Yes Yes No -Correct Procedure Yes Yes No -Procedure Performed Yes Yes No -Type of Procedure Debridement Debridement -Clinical Debridement Subcutaneous Subcutaneous -Tissue Removed Subcutaneous Subcutaneous -Post Debridement (cm) - Length 1.7 1.1 0.1 -Post Debridement (cm) - Width 1.0 0.4 0.1 -Post Debridement (cm) - Depth 0.1 0.1 0.1 -Total Square (Post) (cm) 1.70 0.44 0.01 -Area of Debridement (cm) - Length 1.7 1.1 0.1 -Area of Debridement (cm) - Width 1.0 0.4 0.1 -Total Square (Area) (cm) 1.70 0.44 0.01 -Tunneling No No -Undermining/Tunneling No No -Circular Undermining No No -Wound/Ulcer Outcome Not Healed Not Healed Healed- Epithelialized -Ulcer Cleansing Rinsed/ Rinsed/ Irrigated with Irrigated with Saline Saline -Foul Odor after Cleansing No No -Bioengineered Tissue Yes Yes -Type of Bioengineered Tissue Epifix Epifix 18mm Disc -Expiration Date 02/29/28 02/29/28 -Product Lot Number [id number] -Percent Used 100 100 -Lot number of Saline Used [id number] -Bleeding Controlled with Pressure Pressure -Treatment Response Procedure Procedure Tolerated Well Tolerated Well -Offloading No No -Debridement - Subq, 1st 20sq cm No No -Apply Skin Sub - 1st 25 sq cm - Feet 1 1 -Epifix (per sq cm) 4 -Epifix 18mm Disc 3 Pain Scale: 0-10 Numeric Is Patient Pain Free? Yes Yes Yes - Nurse 3 - General Ulcer D/C NN Start: 07/02/23 13:36 Freq: Status: Active Protocol: Activity Type Activity Date Activity User E-sign Co-sign Detail Recorded Client Recorded Date Recorded By Document 07/02/23 14:56 Desktop 07/02/23 14:58 Document 07/09/23 14:54 Desktop 07/09/23 14:54 07/02/23 07/09/23 14:56 14:54 Wound Care Center Nurse 3 #5 R Lutz, Inf -Ulcer Cleansing Not Cleansed -Foul Odor after Cleansing No -Negative Pressure Wound Therapy N/A -Primary Dressing Covered/Secured with Dry Gauze,Dry Dry Gauze & Gauze & Roll Roll Gauze, Gauze,Secured Secured with with Tape Tape #4 R Med LE/ Trauma -Ulcer Cleansing Not Cleansed -Foul Odor after Cleansing No -Negative Pressure Wound Therapy N/A -Primary Dressing Covered/Secured with Dry Gauze,Dry Dry Gauze & Gauze & Roll Roll Gauze, Gauze,Secured Secured with with Tape Tape #3 R Lutz -Ulcer Cleansing Not Cleansed -Foul Odor after Cleansing No -Negative Pressure Wound Therapy N/A -Primary Dressing Covered/Secured with Dry Gauze,Dry Dry Gauze Gauze & Roll Gauze,Secured with Tape #2 L Heel -Ulcer Cleansing Not Cleansed -Negative Pressure Wound Therapy N/A -Primary Dressing Covered/Secured with Dry Gauze,Dry Dry Gauze & Gauze & Roll Roll Gauze, Gauze,Secured Secured with with Tape Tape Right -Tubular Bandage Double Layer Double Layer -Size of Tubigrip Used Size D Size D -Size D ($) 2 2 Left -Lotion applied to leg before No compression wrap -Tubular Bandage Double Layer Double Layer -Size of Tubigrip Used Size D Size D -Size D ($) 2 2 Pain Scale: 0-10 Numeric Is Patient Pain Free? Yes Yes Teaching: Wound Center Eliminating Foot Pressure -Person Taught Patient -Teaching Method Discussion -Response to teaching Verbalize understanding Dressing Your Wound -Person Taught Patient -Teaching Method Demonstration -Response to teaching Verbalize understanding WC - Visit Discharge Discharge Condition Stable Stable Ambulatory Status Ambulatory, Ambulatory, Walker Walker Transportation Private Auto Private Auto Medication Reconcilliation completed & Yes No provided to patient/care provider Clinical Summary of Care Provided Yes Yes Assessment/Plan Assessment/Plan (1) Non-pressure chronic ulcer of unspecified part of right lower leg with fat layer exposed: CODE(S): L97.912 - Non-pressure chronic ulcer of unspecified part of right lower leg with fat layer exposed PLAN: Patient was examined and evaluated. All findings were discussed with the patient. All questions were answered to the patient's satisfaction. Excisional debridement with 5 mm dermal curette down to and including subcutaneous tissue to the right anterior leg ulceration without incident. Predebridement measurement is 3.4 x 0.4 x 0.1 cm. Post right measurement is 3.5 x 0.5 x 0.1 cm cm. Excisional debridement with 5 mm dermal curette down to and including subcutaneous tissue, to the right proximal medial leg ulceration without incident. Predebridement measurement is 3.9 x 1.5 x 0.1 cm. Post right measurement is 4.0 x 1.7 x 0.2 cm. EpiFix Mesh 4 x 4.5 cm was applied to the right proximal full-thickness ulceration with 100% use. First application. The graft site was free and clear of any infection. The wound/skin graft substitute was dressed with nonadherent bandage secured in place with Steri-Strips followed by bolster dressing as well as a double layer Tubigrip. Follow-up at the wound care center with Dr. Sampson in 1 week. (2) Non-pressure 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: CODE(S): L97.422 - Non-pressure 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 PLAN: At this time the patient's left heel ulceration is now healed. Educated the patient to watch pressure to the heel as well as to continue to wear corrective motion control shoes. (3) Peripheral vascular disease: CODE(S): I73.9 - Peripheral vascular disease, unspecified
[2023-07-23 14:09] VITALS: BP 156/63; PULSE 71; RESP 20; TEMP 36.5
--- NOTE | 2023-07-23 21:45 | PCM.WC.PN ---
History of Present Illness Date of Service: 07/23/23 Chief Complaint: Left foot ulcerations History of Wound: Chronic wounds left foot self treatment as well as SNF treatment Subjective Subjective Mr. Arreola is a 82-year-old male presenting for follow-up of bilateral leg ulcerations. Patient is on 2 L of oxygen at home secondary to shortness of breath and wheezing. Patient states that home health care has not come to his home for dressing changes even though attempts were made to reach out to the home health care facility. He presents today to the wound care center for follow-up evaluation. He denies any recent falls. He denies constitutional symptoms. No other pedal complaints at this time. Objective Data Objective Data Vital Signs: Vital Signs Temp Pulse Resp BP Pulse Ox O2 Del Method O2 Flow Rate 97.7 F L 71 20 H 156/63 H 100 Nasal Cannula 2 07/23/23 14:09 07/23/23 14:09 07/23/23 14:09 07/23/23 14:09 07/16/23 14:26 07/16/23 14:26 07/23/23 14:09 Oxygen Flow Rate (L/min) 2 Oxygen Delivery Method Nasal Cannula Physical Exam Narrative Vascular: DP and PT pulses are faintly palpable. CFT is delayed. Evidence of hemosiderin deposits appreciated bilateral lower extremity. Skin temperature great is warm to warm from proximal ankle to distal digit. Nonpitting edema appreciated to the right lower extremity. No focal increase noted. Neurological: Light touch intact. Epic or station is diminished. Patient does not respond to painful stimuli. Dermatological: Full-thickness ulceration appreciated to the left heel which maceration and partial thickness wound, measuring 0.5 x 0.3 x 0.1 cm. Evidence of full-thickness ulceration secondary to laceration to anterior aspect of the right leg. Right leg central ulceration measures 3.0 x 0.4 x 0.1 cm, inferior ulceration is now healed, proximal medial leg measures 3.4 x 1.4 x 0.2 cm. All wounds are under percent granular nature. No sign of infection. Excisional debridement with 5 mm dermal curette down to and including dermal tissue of the left heel secondary to maceration without incident. Predebridement measurement is callus. Postdebridement measurement is 0.5 x 0.3 x 0.1 cm. Excisional debridement with 5 mm dermal curette down to and including subcutaneous tissue to the right anterior leg ulceration without incident. Predebridement measurement is 2.8 x 0.3 x 0.1 cm. Post debridement measurement is 3.0 x 0.4 x 0.1 cm cm. Excisional debridement with 5 mm dermal curette down to and including subcutaneous tissue, to the right proximal medial leg ulceration without incident. Predebridement measurement is 3.2 x 1.3 x 0.1 cm. Post debrdiement measurement is 3.4 x 1.4 x 0.2 cm. EpiFix Mesh 4 x 4.5 cm was applied to the right proximal full-thickness ulceration with 100% use. Second application. The graft site was free and clear of any infection. The wound/skin graft substitute was dressed with nonadherent bandage secured in place with Steri-Strips followed by bolster dressing as well as a double layer Tubigrip. Musculoskeletal: No pain on palpation or with sharp debridement to both ulcerations to the left foot. No pain with calf compression. Debridement Note Debridement Note Debridement Free Text: Excisional debridement with 5 mm dermal curette down to and including dermal tissue of the left heel secondary to maceration without incident. Predebridement measurement is callus. Postdebridement measurement is 0.5 x 0.3 x 0.1 cm. Excisional debridement with 5 mm dermal curette down to and including subcutaneous tissue to the right anterior leg ulceration without incident. Predebridement measurement is 2.8 x 0.3 x 0.1 cm. Post debridement measurement is 3.0 x 0.4 x 0.1 cm cm. Excisional debridement with 5 mm dermal curette down to and including subcutaneous tissue, to the right proximal medial leg ulceration without incident. Predebridement measurement is 3.2 x 1.3 x 0.1 cm. Post debrdiement measurement is 3.4 x 1.4 x 0.2 cm. EpiFix Mesh 4 x 4.5 cm was applied to the right proximal full-thickness ulceration with 100% use. Second application. The graft site was free and clear of any infection. The wound/skin graft substitute was dressed with nonadherent bandage secured in place with Steri-Strips followed by bolster dressing as well as a double layer Tubigrip. Post-Debridement Measurements and Additional Note: Post-Debridement Measurements/Treatment WC - Nurse 1 - General Ulcer Assessment Start: 07/02/23 13:36 Freq: Status: Active Protocol: [email or web address].ELA Activity Type Activity Date Activity User E-sign Co-sign Detail Recorded Client Recorded Date Recorded By Document 07/02/23 13:36 GM Desktop 07/02/23 14:00 GM Document 07/09/23 14:08 KW Desktop 07/09/23 14:19 KW Document 07/16/23 14:26 KW Desktop 07/16/23 14:48 KW Document 07/23/23 14:09 DL Desktop 07/23/23 14:21 DL 07/02/23 07/09/23 07/16/23 13:36 14:08 14:26 - Today's Visit Information Type of service Follow-up Visit Follow-up Visit Follow-up Visit (Physician/JUNIOR MARKETING ASSOCIATE (Physician/JUNIOR MARKETING ASSOCIATE (Physician/JUNIOR MARKETING ASSOCIATE ) ) ) Arrival Mode Ambulatory, Ambulatory, Ambulatory, Walker Walker Walker Transfer Assistance None Patient Identification Verified (Name & Yes Yes Yes ) Patient Requires Transmission-Based No Precautions Vital Signs Temperature (97.8 F-99.1 F) 96.5 F L 96.8 F L 96.9 F L Temperature Source Temporal Temporal Temporal Pulse Rate (60-100) 83 72 69 Pulse Location Monitor Monitor Monitor Respiratory Rate (12-18) 18 18 Respiratory rate source Ventilator Observation Observation Pulse Oximetry 92 100 Oxygen Delivery Method Room Air Nasal Cannula Nasal Cannula O2 L/MIN (L/min) 2 2 Blood Pressure (90/60-120/80) 147/78 H 131/39 H 169/56 H Blood Pressure Mean (mm Hg) 101 69 93 Source Monitor Monitor Monitor Position Semi-Fowlers Semi-Fowlers Semi-Fowlers Blood Pressure Location Right Arm Left Arm Right Arm History Since Last Visit- (Skip if this is Patient's initial visit) Have you changed medications since your No No No last visit? Any new allergies or adverse reactions No No No Had a fall/change in ADL's that may No No No increase risk of falls Signs or symptoms of abuse and/or No No No neglect since last visit Have you been in the hospital since your Yes No No last visit? Has dressing in place as prescribed Yes Yes Yes Has compression in place as prescribed Yes Yes Yes Has offloadiing in place as prescribed N/A No N/A Experienced any changes in pain level or No No No management Left Footwear Regular Shoe Regular Shoe Regular Shoe Right Footwear Regular Shoe Regular Shoe Regular Shoe Pain Scale: 0-10 Numeric Is Patient Pain Free? Yes Yes Yes 07/23/23 14:09 WC - Today's Visit Information Type of service Follow-up Visit (Physician/JUNIOR MARKETING ASSOCIATE ) Arrival Mode Ambulatory, Walker Transfer Assistance None Patient Identification Verified (Name & Yes ) Patient Requires Transmission-Based No Precautions Vital Signs Temperature (97.8 F-99.1 F) 97.7 F L Temperature Source Temporal Pulse Rate (60-100) 71 Pulse Location Monitor Respiratory Rate (12-18) 20 H Respiratory rate source Observation Pulse Oximetry Oxygen Delivery Method O2 L/MIN (L/min) 2 Blood Pressure (90/60-120/80) 156/63 H Blood Pressure Mean (mm Hg) 94 Source Monitor Position Blood Pressure Location History Since Last Visit- (Skip if this is Patient's initial visit) Have you changed medications since your No last visit? Any new allergies or adverse reactions No Had a fall/change in ADL's that may No increase risk of falls Signs or symptoms of abuse and/or No neglect since last visit Have you been in the hospital since your No last visit? Has dressing in place as prescribed Yes Has compression in place as prescribed Yes Has offloadiing in place as prescribed Yes Experienced any changes in pain level or No management Left Footwear Right Footwear Pain Scale: 0-10 Numeric Is Patient Pain Free? Yes - Nurse 1 - General Ulcer Measurement Start: 07/02/23 13:36 Freq: Status: Active Protocol: Activity Type Activity Date Activity User E-sign Co-sign Detail Recorded Client Recorded Date Recorded By Document 07/02/23 13:36 GM Desktop 07/02/23 14:00 GM Document 07/09/23 14:08 KW Desktop 07/09/23 14:19 KW Document 07/16/23 14:26 KW Desktop 07/16/23 14:48 KW Document 07/23/23 14:09 DL Desktop 07/23/23 14:21 DL 07/02/23 07/09/23 07/16/23 13:36 14:08 14:26 Wound Center Nurse 1 #5 R Raul Lutz -Current Size (cm) - Length 1.0 0.1 0.1 -Current Size (cm) - Width 0.5 0.1 0.1 -Current Size (cm) - Depth 0.1 0.1 0.1 -Total Square Cm 0.50 0.01 0.01 -Date of Last Picture (Recall this 07/16/23 field) -Photo Taken No Yes -Epithelialization None Present -Exudate Amt Medium -Exudate Type Serosanguineous -Wound Margin Distinct, Distinct, Outline Outline Attached Attached -Granulation Amt None Present (0 %) -Granulation Quality N/A -Structure Exposed N/A -Texture (Adelina-wound Skin Appearance) Assessed Assessed Assessed -Moisture (Adelina-wound Skin Appearance) Assessed Assessed Assessed -Color (Adelina-wound Skin Appearance) Assessed Assessed Assessed -Temperature (Adelina-wound Skin No Abnormality No Abnormality No Abnormality Appearance) (Pt Warm) (Pt Warm) (Pt Warm) -Tenderness on Palpation (Adelina-wound No No Skin Appearance) -Ulcer Cleansing Soap and Water Soap and Water Soap and Water -Foul Odor after Cleansing No -Anesthetic Used 5% Lidocaine 4% Lidocaine 4% Lidocaine Gel Solution Solution -Wound Comment(s) scabbed scabbed #4 R Med LE/ Trauma -Current Size (cm) - Length 4.5 3.6 3.5 -Current Size (cm) - Width 2.0 1.8 2.5 -Current Size (cm) - Depth 0.2 0.2 0.1 -Total Square Cm 9.00 6.48 8.75 -Date of Last Picture (Recall this 07/16/23 field) -Photo Taken Yes -Epithelialization Small 1-33% -Tunneling No -Undermining/Tunneling No -Circular Undermining No -Exudate Amt Medium Medium -Exudate Type Yellow/Green Serosanguineous Serosanguineous -Wound Margin Distinct, Distinct, Distinct, Outline Outline Outline Attached Attached Attached -Granulation Amt Small (1-33%) Medium (34-66%) Medium (34-66%) -Granulation Quality Red Red Red -Slough/Fibrin Yes -Necrosis Amt Medium (34-66%) Medium (34-66%) Medium (34-66%) -Necrotic Tissue Type Adherent Slough Adherent Slough Adherent Slough -Structure Exposed N/A -Texture (Adelina-wound Skin Appearance) Assessed Assessed Assessed -Moisture (Adelina-wound Skin Appearance) Assessed Assessed Maceration -Color (Adelina-wound Skin Appearance) Assessed Assessed, Assessed Erythema -Temperature (Adelina-wound Skin No Abnormality No Abnormality Appearance) (Pt Warm) (Pt Warm) -Tenderness on Palpation (Adelina-wound No Skin Appearance) -Ulcer Cleansing Soap and Water Soap and Water Soap and Water -Foul Odor after Cleansing Yes, Due to No Product Use -Anesthetic Used 5% Lidocaine 4% Lidocaine 4% Lidocaine Gel Solution Solution #3 R Lutz -Current Size (cm) - Length 4.1 3.8 2.9 -Current Size (cm) - Width 1 0.9 0.6 -Current Size (cm) - Depth 0.1 0.1 0.1 -Total Square Cm 4.1 3.42 1.74 -Date of Last Picture (Recall this 07/16/23 field) -Photo Taken No Yes -Epithelialization None Present -Tunneling No -Undermining/Tunneling No -Circular Undermining No -Exudate Amt Medium Medium Small -Exudate Type Yellow/Green Serosanguineous Serosanguineous -Wound Margin Distinct, Distinct, Distinct, Outline Outline Outline Attached Attached Attached -Granulation Amt Medium (34-66%) Medium (34-66%) Large (67-100%) -Granulation Quality Red Red Red -Necrosis Amt Medium (34-66%) Small (1-33%) Small (1-33%) -Necrotic Tissue Type Adherent Slough Adherent Slough Adherent Slough -Structure Exposed N/A -Texture (Adelina-wound Skin Appearance) Assessed Assessed Assessed -Moisture (Adelina-wound Skin Appearance) Assessed Assessed Assessed,Dry/ Scaly -Color (Adelina-wound Skin Appearance) Assessed Assessed, Assessed Erythema -Temperature (Adelina-wound Skin No Abnormality No Abnormality No Abnormality Appearance) (Pt Warm) (Pt Warm) (Pt Warm) -Tenderness on Palpation (Adelina-wound No Skin Appearance) -Ulcer Cleansing Soap and Water Soap and Water Soap and Water -Foul Odor after Cleansing No No -Anesthetic Used 5% Lidocaine 4% Lidocaine 4% Lidocaine Gel Solution Solution #2 L Heel -Current Size (cm) - Length 1 0.7 2.1 -Current Size (cm) - Width 2.2 2.2 0.5 -Current Size (cm) - Depth 0.1 0.1 0.1 -Total Square Cm 2.2 1.54 1.05 -Date of Last Picture (Recall this 07/16/23 field) -Photo Taken Yes -Epithelialization None Present -Tunneling No -Undermining/Tunneling No -Circular Undermining No -Exudate Amt None Present Medium -Exudate Type Serosanguineous -Wound Margin Distinct, Distinct, Outline Outline Attached Attached -Granulation Amt Small (1-33%) -Granulation Quality [place] -Necrosis Amt Large (67-100%) -Necrotic Tissue Type Adherent Slough -Structure Exposed N/A -Texture (Adelina-wound Skin Appearance) Assessed Callus Assessed -Moisture (Adelina-wound Skin Appearance) Assessed Dry/Scaly Assessed,Dry/ Scaly -Color (Adelina-wound Skin Appearance) Assessed Assessed Assessed -Temperature (Adelina-wound Skin No Abnormality No Abnormality No Abnormality Appearance) (Pt Warm) (Pt Warm) (Pt Warm) -Tenderness on Palpation (Adelina-wound No Skin Appearance) -Ulcer Cleansing Soap and Water Soap and Water Soap and Water -Foul Odor after Cleansing No -Anesthetic Used 5% Lidocaine 4% Lidocaine 4% Lidocaine Gel Solution Solution -Wound Comment(s) scabbed Lower Limb Edema Present Yes Right Calf (cm) 37.5 38.5 Right Ankle (cm) 21.5 20.3 Left Calf (cm) 37 38.5 Left Ankle (cm) 21 20.8 07/23/23 14:09 Wound Center Nurse 1 #5 R Lutz, Inf -Current Size (cm) - Length -Current Size (cm) - Width -Current Size (cm) - Depth -Total Square Cm -Date of Last Picture (Recall this field) -Photo Taken -Epithelialization -Exudate Amt -Exudate Type -Wound Margin -Granulation Amt -Granulation Quality -Structure Exposed -Texture (Adelina-wound Skin Appearance) -Moisture (Adelina-wound Skin Appearance) -Color (Adelina-wound Skin Appearance) -Temperature (Adelina-wound Skin Appearance) -Tenderness on Palpation (Adelina-wound Skin Appearance) -Ulcer Cleansing -Foul Odor after Cleansing -Anesthetic Used -Wound Comment(s) #4 R Med LE/ Trauma -Current Size (cm) - Length 3.4 -Current Size (cm) - Width 1.4 -Current Size (cm) - Depth 0.1 -Total Square Cm 4.76 -Date of Last Picture (Recall this field) -Photo Taken -Epithelialization -Tunneling -Undermining/Tunneling -Circular Undermining -Exudate Amt Small -Exudate Type Serosanguineous -Wound Margin Thickened -Granulation Amt None Present (0 %) -Granulation Quality -Slough/Fibrin -Necrosis Amt Large (67-100%) -Necrotic Tissue Type Adherent Slough -Structure Exposed N/A -Texture (Adelina-wound Skin Appearance) Localized Edema ,Scarring -Moisture (Adelina-wound Skin Appearance) Dry/Scaly -Color (Adelina-wound Skin Appearance) Hemosiderin Staining -Temperature (Adelina-wound Skin No Abnormality Appearance) (Pt Warm) -Tenderness on Palpation (Adelina-wound No Skin Appearance) -Ulcer Cleansing Soap and Water -Foul Odor after Cleansing No -Anesthetic Used 5% Lidocaine Gel #3 R Lutz -Current Size (cm) - Length 3.3 -Current Size (cm) - Width 0.6 -Current Size (cm) - Depth 0.1 -Total Square Cm 1.98 -Date of Last Picture (Recall this field) -Photo Taken -Epithelialization -Tunneling -Undermining/Tunneling -Circular Undermining -Exudate Amt Small -Exudate Type Serosanguineous -Wound Margin Thickened -Granulation Amt None Present (0 %) -Granulation Quality -Necrosis Amt Large (67-100%) -Necrotic Tissue Type Eschar -Structure Exposed N/A -Texture (Adelina-wound Skin Appearance) Localized Edema ,Scarring -Moisture (Adelina-wound Skin Appearance) Dry/Scaly -Color (Adelina-wound Skin Appearance) Hemosiderin Staining -Temperature (Adelina-wound Skin No Abnormality Appearance) (Pt Warm) -Tenderness on Palpation (Adelina-wound No Skin Appearance) -Ulcer Cleansing Soap and Water -Foul Odor after Cleansing No -Anesthetic Used 5% Lidocaine Gel #2 L Heel -Current Size (cm) - Length 0.4 -Current Size (cm) - Width 1.3 -Current Size (cm) - Depth 0.2 -Total Square Cm 0.52 -Date of Last Picture (Recall this field) -Photo Taken -Epithelialization -Tunneling -Undermining/Tunneling -Circular Undermining -Exudate Amt Medium -Exudate Type Serosanguineous -Wound Margin Distinct, Outline Attached -Granulation Amt Small (1-33%) -Granulation Quality [place] -Necrosis Amt Large (67-100%) -Necrotic Tissue Type Adherent Slough -Structure Exposed N/A -Texture (Adelina-wound Skin Appearance) Scarring -Moisture (Adelina-wound Skin Appearance) Maceration -Color (Adelina-wound Skin Appearance) Hemosiderin Staining -Temperature (Adelina-wound Skin No Abnormality Appearance) (Pt Warm) -Tenderness on Palpation (Adelina-wound No Skin Appearance) -Ulcer Cleansing Soap and Water -Foul Odor after Cleansing No -Anesthetic Used 5% Lidocaine Gel -Wound Comment(s) Lower Limb Edema Present Right Calf (cm) 36.5 Right Ankle (cm) 22 Left Calf (cm) 35.4 Left Ankle (cm) 21.1 WC - Nurse 2 - General Ulcer CM Notes Start: 07/02/23 13:36 Freq: Status: Active Protocol: Activity Type Activity Date Activity User E-sign Co-sign Detail Recorded Client Recorded Date Recorded By Document 07/02/23 14:25 Likeeds Laptop 07/02/23 14:35 Likeeds Document 07/09/23 14:35 Likeeds Laptop 07/09/23 14:48 Likeeds Document 07/16/23 15:05 Likeeds Laptop 07/16/23 15:11 Likeeds Document 07/23/23 14:31 Likeeds Laptop 07/23/23 14:40 Likeeds 07/02/23 07/09/23 07/16/23 14:25 14:35 15:05 Wound Center Nurse 2 #5 R Lutz, Inf -Time 14:26 14:35 -Correct Patient Yes Yes No -Correct Side, Site, Position Yes Yes No -Correct Procedure Yes Yes No -Procedure Performed Yes Yes No -Type of Procedure Debridement Debridement -Clinical Debridement Subcutaneous Subcutaneous -Tissue Removed Subcutaneous Subcutaneous -Post Debridement (cm) - Length 1.0 0.7 0 -Post Debridement (cm) - Width 0.7 0.4 0 -Post Debridement (cm) - Depth 0.1 0.1 0 -Total Square (Post) (cm) 0.70 0.28 0 -Area of Debridement (cm) - Length 1.0 0.7 0 -Area of Debridement (cm) - Width 0.7 0.4 0 -Total Square (Area) (cm) 0.70 0.28 0 -Tunneling No No -Undermining/Tunneling No No -Circular Undermining No No -Wound/Ulcer Outcome Not Healed Not Healed Healed- Epithelialized -Ulcer Cleansing Wound Cleanser Rinsed/ Irrigated with Saline -Foul Odor after Cleansing No No -Bioengineered Tissue No No -Bleeding Controlled with Pressure Pressure -Treatment Response Procedure Procedure Tolerated Well Tolerated Well -Offloading No No -Debridement - Subq, 1st 20sq cm No No #4 R Med LE/ Trauma -Time 14:27 14:36 15:05 -Correct Patient Yes Yes Yes -Correct Side, Site, Position Yes Yes Yes -Correct Procedure Yes Yes Yes -Procedure Performed Yes Yes Yes -Type of Procedure Debridement Debridement Debridement -Clinical Debridement Subcutaneous Subcutaneous Subcutaneous -Tissue Removed Subcutaneous Subcutaneous Subcutaneous -Post Debridement (cm) - Length 4.5 4.0 4.0 -Post Debridement (cm) - Width 2.0 1.7 1.7 -Post Debridement (cm) - Depth 0.2 0.2 0.2 -Total Square (Post) (cm) 9.00 6.80 6.80 -Area of Debridement (cm) - Length 4.5 4.0 4.0 -Area of Debridement (cm) - Width 2.0 1.7 1.7 -Total Square (Area) (cm) 9.00 6.80 6.80 -Tunneling No No No -Undermining/Tunneling No No No -Circular Undermining No No No -Wound/Ulcer Outcome Not Healed Not Healed Not Healed -Ulcer Cleansing Rinsed/ Rinsed/ Rinsed/ Irrigated with Irrigated with Irrigated with Saline Saline Saline -Foul Odor after Cleansing No No No -Bioengineered Tissue No No Yes -Type of Bioengineered Tissue -Type of Bioengineered Tissue Epifix Mesh -Expiration Date 02/29/28 -Product Lot Number [id number] -Percent Used 100 -Lot number of Saline Used [id number] -Bleeding Controlled with Pressure Pressure Pressure -Treatment Response Procedure Procedure Procedure Tolerated Well Tolerated Well Tolerated Well -Offloading No No No -Debridement - Subq, 1st 20sq cm No No No -Apply Skin Sub - 1st 25 sq cm - Legs 1 -Epifix Mesh (per sq cm) 11 #3 R Lutz -Time 14:27 14:36 15:06 -Correct Patient Yes Yes Yes -Correct Side, Site, Position Yes Yes Yes -Correct Procedure Yes Yes Yes -Procedure Performed Yes Yes Yes -Type of Procedure Debridement Debridement Debridement -Clinical Debridement Subcutaneous Subcutaneous Subcutaneous -Tissue Removed Subcutaneous Subcutaneous Subcutaneous -Post Debridement (cm) - Length 4.2 3.8 3.5 -Post Debridement (cm) - Width 1.0 0.7 0.5 -Post Debridement (cm) - Depth 0.1 0.1 0.1 -Total Square (Post) (cm) 4.20 2.66 1.75 -Area of Debridement (cm) - Length 4.2 3.8 3.5 -Area of Debridement (cm) - Width 1.0 0.7 0.5 -Total Square (Area) (cm) 4.20 2.66 1.75 -Tunneling No No No -Undermining/Tunneling No No No -Circular Undermining No No No -Wound/Ulcer Outcome Not Healed Not Healed Not Healed -Ulcer Cleansing Rinsed/ Rinsed/ Rinsed/ Irrigated with Irrigated with Irrigated with Saline Saline Saline -Foul Odor after Cleansing No No No -Bioengineered Tissue No No No -Bleeding Controlled with Pressure Pressure Pressure -Treatment Response Procedure Procedure Procedure Tolerated Well Tolerated Well Tolerated Well -Offloading No No No -Debridement - Subq, 1st 20sq cm Yes Yes Yes #2 L Heel -Time 14:32 14:36 -Correct Patient Yes Yes No -Correct Side, Site, Position Yes Yes No -Correct Procedure Yes Yes No -Procedure Performed Yes Yes No -Type of Procedure Debridement Debridement -Clinical Debridement Subcutaneous Subcutaneous -Tissue Removed Subcutaneous Subcutaneous -Post Debridement (cm) - Length 1.7 1.1 0.1 -Post Debridement (cm) - Width 1.0 0.4 0.1 -Post Debridement (cm) - Depth 0.1 0.1 0.1 -Total Square (Post) (cm) 1.70 0.44 0.01 -Area of Debridement (cm) - Length 1.7 1.1 0.1 -Area of Debridement (cm) - Width 1.0 0.4 0.1 -Total Square (Area) (cm) 1.70 0.44 0.01 -Tunneling No No -Undermining/Tunneling No No -Circular Undermining No No -Wound/Ulcer Outcome Not Healed Not Healed Healed- Epithelialized -Ulcer Cleansing Rinsed/ Rinsed/ Irrigated with Irrigated with Saline Saline -Foul Odor after Cleansing No No -Bioengineered Tissue Yes Yes -Type of Bioengineered Tissue Epifix Epifix 18mm Disc -Expiration Date 02/29/28 02/29/28 -Product Lot Number [id number] -Percent Used 100 100 -Lot number of Saline Used [id number] -Bleeding Controlled with Pressure Pressure -Treatment Response Procedure Procedure Tolerated Well Tolerated Well -Offloading No No -Debridement - Open, 1st 20sq cm -Debridement - Subq, 1st 20sq cm No No -Apply Skin Sub - 1st 25 sq cm - Feet 1 1 -Epifix (per sq cm) 4 -Epifix 18mm Disc 3 Pain Scale: 0-10 Numeric Is Patient Pain Free? Yes Yes Yes 07/23/23 14:31 Wound Center Nurse 2 #5 R Lutz, Inf -Time -Correct Patient -Correct Side, Site, Position -Correct Procedure -Procedure Performed -Type of Procedure -Clinical Debridement -Tissue Removed -Post Debridement (cm) - Length -Post Debridement (cm) - Width -Post Debridement (cm) - Depth -Total Square (Post) (cm) -Area of Debridement (cm) - Length -Area of Debridement (cm) - Width -Total Square (Area) (cm) -Tunneling -Undermining/Tunneling -Circular Undermining -Wound/Ulcer Outcome -Ulcer Cleansing -Foul Odor after Cleansing -Bioengineered Tissue -Bleeding Controlled with -Treatment Response -Offloading -Debridement - Subq, 1st 20sq cm #4 R Med LE/ Trauma -Time 14:32 -Correct Patient Yes -Correct Side, Site, Position Yes -Correct Procedure Yes -Procedure Performed Yes -Type of Procedure Debridement -Clinical Debridement Subcutaneous -Tissue Removed Subcutaneous -Post Debridement (cm) - Length 3.4 -Post Debridement (cm) - Width 1.4 -Post Debridement (cm) - Depth 0.2 -Total Square (Post) (cm) 4.76 -Area of Debridement (cm) - Length 3.4 -Area of Debridement (cm) - Width 1.4 -Total Square (Area) (cm) 4.76 -Tunneling No -Undermining/Tunneling No -Circular Undermining No -Wound/Ulcer Outcome Not Healed -Ulcer Cleansing Rinsed/ Irrigated with Saline -Foul Odor after Cleansing No -Bioengineered Tissue Yes -Type of Bioengineered Tissue Epifix Mesh -Type of Bioengineered Tissue -Expiration Date 02/29/28 -Product Lot Number [id number] -Percent Used 100 -Lot number of Saline Used [id number] -Bleeding Controlled with Pressure -Treatment Response Procedure Tolerated Well -Offloading No -Debridement - Subq, 1st 20sq cm No -Apply Skin Sub - 1st 25 sq cm - Legs 1 -Epifix Mesh (per sq cm) 11 #3 R Lutz -Time 14:31 -Correct Patient Yes -Correct Side, Site, Position Yes -Correct Procedure Yes -Procedure Performed Yes -Type of Procedure Debridement -Clinical Debridement Subcutaneous -Tissue Removed Subcutaneous -Post Debridement (cm) - Length 3.0 -Post Debridement (cm) - Width 0.4 -Post Debridement (cm) - Depth 0.1 -Total Square (Post) (cm) 1.20 -Area of Debridement (cm) - Length 3.0 -Area of Debridement (cm) - Width 0.4 -Total Square (Area) (cm) 1.20 -Tunneling No -Undermining/Tunneling No -Circular Undermining No -Wound/Ulcer Outcome Not Healed -Ulcer Cleansing Rinsed/ Irrigated with Saline -Foul Odor after Cleansing No -Bioengineered Tissue No -Bleeding Controlled with Pressure -Treatment Response Procedure Tolerated Well -Offloading No -Debridement - Subq, 1st 20sq cm Yes #2 L Heel -Time 14:32 -Correct Patient Yes -Correct Side, Site, Position Yes -Correct Procedure Yes -Procedure Performed Yes -Type of Procedure Debridement -Clinical Debridement Epidermis / Dermis -Tissue Removed Epidermis, Dermis -Post Debridement (cm) - Length 0.5 -Post Debridement (cm) - Width 0.3 -Post Debridement (cm) - Depth 0.1 -Total Square (Post) (cm) 0.15 -Area of Debridement (cm) - Length 0.5 -Area of Debridement (cm) - Width 0.3 -Total Square (Area) (cm) 0.15 -Tunneling No -Undermining/Tunneling No -Circular Undermining No -Wound/Ulcer Outcome Not Healed -Ulcer Cleansing Rinsed/ Irrigated with Saline -Foul Odor after Cleansing No -Bioengineered Tissue No -Type of Bioengineered Tissue -Expiration Date -Product Lot Number -Percent Used -Lot number of Saline Used -Bleeding Controlled with Pressure -Treatment Response Procedure Tolerated Well -Offloading No -Debridement - Open, 1st 20sq cm Yes -Debridement - Subq, 1st 20sq cm -Apply Skin Sub - 1st 25 sq cm - Feet -Epifix (per sq cm) -Epifix 18mm Disc Pain Scale: 0-10 Numeric Is Patient Pain Free? Yes WC - Nurse 3 - General Ulcer D/C NN Start: 07/02/23 13:36 Freq: Status: Active Protocol: Activity Type Activity Date Activity User E-sign Co-sign Detail Recorded Client Recorded Date Recorded By Document 07/02/23 14:56 GM Desktop 07/02/23 14:58 GM Document 07/09/23 14:54 KW Desktop 07/09/23 14:54 KW Document 07/16/23 15:20 Desktop 07/16/23 15:21 GM Document 07/23/23 14:59 [facility] Desktop 07/23/23 15:00 F 07/02/23 07/09/23 07/16/23 14:56 14:54 15:20 [facility] Center Nurse 3 #5 R Lutz, Inf -Ulcer Cleansing Not Cleansed -Foul Odor after Cleansing No -Negative Pressure Wound Therapy N/A -Primary Dressing Covered/Secured with Dry Gauze,Dry Dry Gauze & Gauze & Roll Roll Gauze, Gauze,Secured Secured with with Tape Tape #4 R Med LE/ Trauma -Ulcer Cleansing Not Cleansed -Foul Odor after Cleansing No -Negative Pressure Wound Therapy N/A -Other Dressing -Primary Dressing Covered/Secured with Dry Gauze,Dry Dry Gauze & Dry Gauze & Gauze & Roll Roll Gauze, Roll Gauze, Gauze,Secured Secured with Secured with with Tape Tape Tape -Other Covering #3 R Lutz -Ulcer Cleansing Not Cleansed -Foul Odor after Cleansing No -Negative Pressure Wound Therapy N/A -Other Dressing -Primary Dressing Covered/Secured with Dry Gauze,Dry Dry Gauze Dry Gauze & Gauze & Roll Roll Gauze, Gauze,Secured Secured with with Tape Tape #2 L Heel -Ulcer Cleansing Not Cleansed -Foul Odor after Cleansing -Negative Pressure Wound Therapy N/A -Other Dressing -Primary Dressing Covered/Secured with Dry Gauze,Dry Dry Gauze & Dry Gauze Gauze & Roll Roll Gauze, Gauze,Secured Secured with with Tape Tape BLE -Tubular Bandage -Size of Tubigrip Used -Size E ($) -Other Right -Tubular Bandage Double Layer Double Layer Double Layer -Size of Tubigrip Used Size D Size D Size D -Size D ($) 2 2 2 Left -Lotion applied to leg before No compression wrap -Tubular Bandage Double Layer Double Layer Double Layer -Size of Tubigrip Used Size D Size D Size D -Size D ($) 2 2 2 Treatment Response Pain Scale: 0-10 Numeric Is Patient Pain Free? Yes Yes Yes Teaching: Wound Center Eliminating Foot Pressure -Person Taught Patient -Teaching Method Discussion -Response to teaching Verbalize understanding Dressing Your Wound -Person Taught Patient -Teaching Method Demonstration -Response to teaching Verbalize understanding WC - Visit Discharge Discharge Condition Stable Stable Stable Ambulatory Status Ambulatory, Ambulatory, Ambulatory, Walker Walker Walker Transportation Private Auto Private Auto Private Auto Medication Reconcilliation completed & Yes No No provided to patient/care provider Clinical Summary of Care Provided Yes Yes Yes Facility Type 07/23/23 14:59 Wound Care Center Nurse 3 #5 R Lutz, Inf -Ulcer Cleansing -Foul Odor after Cleansing -Negative Pressure Wound Therapy -Primary Dressing Covered/Secured with #4 R Med LE/ Trauma -Ulcer Cleansing -Foul Odor after Cleansing -Negative Pressure Wound Therapy -Other Dressing EPIMESH; -Primary Dressing Covered/Secured with Dry Gauze & Roll Gauze, Secured with Tape -Other Covering ABD #3 R Lutz -Ulcer Cleansing -Foul Odor after Cleansing -Negative Pressure Wound Therapy -Other Dressing EPIMESH; ABD -Primary Dressing Covered/Secured with Dry Gauze & Roll Gauze, Secured with Tape #2 L Heel -Ulcer Cleansing Rinsed/ Irrigated with Saline -Foul Odor after Cleansing No -Negative Pressure Wound Therapy -Other Dressing BETADINE PAINT; HEEL HAT & FLUFFED GAUZE -Primary Dressing Covered/Secured with Dry Gauze & Roll Gauze, Secured with Tape BLE -Tubular Bandage Double Layer -Size of Tubigrip Used Size E -Size E ($) 2 -Other [employer] TUBI SIZE E Right -Tubular Bandage -Size of Tubigrip Used -Size D ($) Left -Lotion applied to leg before compression wrap -Tubular Bandage -Size of Tubigrip Used -Size D ($) Treatment Response Procedure Tolerated Well Pain Scale: 0-10 Numeric Is Patient Pain Free? Yes Teaching: Wound Center Eliminating Foot Pressure -Person Taught -Teaching Method -Response to teaching Dressing Your Wound -Person Taught -Teaching Method -Response to teaching WC - Visit Discharge Discharge Condition Stable Ambulatory Status Ambulatory, Walker Transportation Private Auto Medication Reconcilliation completed & provided to patient/care provider Clinical Summary of Care Provided Facility Type Home Health Assessment/Plan Assessment/Plan (1) Non-pressure chronic ulcer of unspecified part of right lower leg with fat layer exposed: CODE(S): L97.912 - Non-pressure chronic ulcer of unspecified part of right lower leg with fat layer exposed PLAN: Patient was examined and evaluated. All findings were discussed with the patient. All questions were answered to the patient satisfaction. Excisional debridement with 5 mm dermal curette down to and including dermal tissue of the left heel secondary to maceration without incident. Predebridement measurement is callus. Postdebridement measurement is 0.5 x 0.3 x 0.1 cm. Excisional debridement with 5 mm dermal curette down to and including subcutaneous tissue to the right anterior leg ulceration without incident. Predebridement measurement is 2.8 x 0.3 x 0.1 cm. Post debridement measurement is 3.0 x 0.4 x 0.1 cm cm. Excisional debridement with 5 mm dermal curette down to and including subcutaneous tissue, to the right proximal medial leg ulceration without incident. Predebridement measurement is 3.2 x 1.3 x 0.1 cm. Post debrdiement measurement is 3.4 x 1.4 x 0.2 cm. EpiFix Mesh 4 x 4.5 cm was applied to the right proximal full-thickness ulceration with 100% use. Second application. The graft site was free and clear of any infection. The wound/skin graft substitute was dressed with nonadherent bandage secured in place with Steri-Strips followed by bolster dressing as well as a double layer Tubigrip. The patient's left heel was dressed with bordered foam. Patient was educated that if home health care does not come by that he will need to change the bandage every other day. He was understanding of that. This will help prevent maceration and breakdown of the skin further allowing the macerated skin to heal. Patient will follow-up with Dr. Sampson at the wound care center in 1 week. (2) Non-pressure chronic ulcer of left heel and midfoot limited to breakdown of skin: CODE(S): L97.421 - Non-pressure chronic ulcer of left heel and midfoot limited to breakdown of skin (3) Edema: CODE(S): R60.9 - Edema, unspecified
[2023-07-30 14:11] VITALS: BP 123/53; PULSE 73; RESP 18; TEMP 36.3
--- NOTE | 2023-07-30 14:50 | PCM.WC.PN ---
History of Present Illness Date of Service: 07/30/23 Chief Complaint: Left foot ulcerations History of Wound: Chronic wounds left foot self treatment as well as SNF treatment Subjective Subjective Mr. Arreola is a 82-year-old male presenting for follow-up of bilateral leg ulcerations. Patient states that home health care has not come to his home for dressing changes but coming Friday. He presents today to the wound care center for follow-up evaluation. He denies any recent falls. He denies constitutional symptoms. No other pedal complaints at this time. Objective Data Objective Data Vital Signs: Vital Signs Temp Pulse Resp BP Pulse Ox O2 Del Method O2 Flow Rate 97.4 F L 73 18 123/53 H 100 Room Air 2 07/30/23 14:11 07/30/23 14:11 07/30/23 14:11 07/30/23 14:11 07/16/23 14:26 07/30/23 14:11 07/23/23 14:09 Oxygen Flow Rate (L/min) 2 Oxygen Delivery Method Room Air Physical Exam Narrative Vascular: DP and PT pulses are faintly palpable. CFT is delayed. Evidence of hemosiderin deposits appreciated bilateral lower extremity. Skin temperature great is warm to warm from proximal ankle to distal digit. Nonpitting edema appreciated to the right lower extremity. No focal increase noted. Neurological: Light touch intact. Epic or station is diminished. Patient does not respond to painful stimuli. Dermatological: Full-thickness ulceration appreciated to the left heel, is healed. Evidence of full-thickness ulceration secondary to laceration to anterior aspect of the right leg. Right leg central ulceration measures 2.1 x 0.4 x0.1 cm, proximal medial leg measures 3.4 x 1.0 x 0.1 cm. All wounds are under percent granular nature. No sign of infection. Excisional debridement with 5 mm dermal curette down to and including subcutaneous tissue to the right anterior leg ulceration without incident. Predebridement measurement is sanguinous crust. Post debridement measurement is 2.1 x 0.4 x 0.1 cm cm. Excisional debridement with 5 mm dermal curette down to and including subcutaneous tissue, to the right proximal medial leg ulceration without incident. Predebridement measurement is sanguinous crust Post debrdiement measurement is 3.4 x 1.0 x 0.1 cm. EpiFix 2.0 x 2.0 cm was applied to the right proximal full-thickness ulceration with 100% use. Third application. The graft site was free and clear of any infection. The wound/skin graft substitute was dressed with nonadherent bandage secured in place with Steri-Strips followed by bolster dressing as well as a double layer Tubigrip. Musculoskeletal: No pain on palpation or with sharp debridement to both ulcerations to the left foot. No pain with calf compression. Debridement Note Debridement Note Debridement Free Text: Excisional debridement with 5 mm dermal curette down to and including subcutaneous tissue to the right anterior leg ulceration without incident. Predebridement measurement is sanguinous crust. Post debridement measurement is 2.1 x 0.4 x 0.1 cm cm. Excisional debridement with 5 mm dermal curette down to and including subcutaneous tissue, to the right proximal medial leg ulceration without incident. Predebridement measurement is sanguinous crust Post debrdiement measurement is 3.4 x 1.0 x 0.1 cm. EpiFix 2.0 x 2.0 cm was applied to the right proximal full-thickness ulceration with 100% use. Third application. The graft site was free and clear of any infection. The wound/skin graft substitute was dressed with nonadherent bandage secured in place with Steri-Strips followed by bolster dressing as well as a double layer Tubigrip. Post-Debridement Measurements and Additional Note: Post-Debridement Measurements/Treatment - Nurse 1 - General Ulcer Assessment Start: 07/02/23 13:36 Freq: Status: Active Protocol: [email or web address] Activity Type Activity Date Activity User E-sign Co-sign Detail Recorded Client Recorded Date Recorded By Document 07/02/23 13:36 Desktop 07/02/23 14:00 GM Document 07/09/23 14:08 KW Desktop 07/09/23 14:19 KW Document 07/16/23 14:26 KW Desktop 07/16/23 14:48 KW Document 07/23/23 14:09 DL Desktop 07/23/23 14:21 DL Document 07/30/23 14:11 GM Desktop 07/30/23 14:28 07/02/23 07/09/23 07/16/23 13:36 14:08 14:26 - Today's Visit Information Type of service Follow-up Visit Follow-up Visit Follow-up Visit (Physician/HOSPITAL TECHNICIAN (Physician/HOSPITAL TECHNICIAN (Physician/HOSPITAL TECHNICIAN ) ) ) Arrival Mode Ambulatory, Ambulatory, Ambulatory, Walker Walker Walker Transfer Assistance None Patient Identification Verified (Name & Yes Yes Yes ) Patient Requires Transmission-Based No Precautions Vital Signs Temperature (97.8 F-99.1 F) 96.5 F L 96.8 F L 96.9 F L Temperature Source Temporal Temporal Temporal Pulse Rate (60-100) 83 72 69 Pulse Location Monitor Monitor Monitor Respiratory Rate (12-18) 18 18 Respiratory rate source Ventilator Observation Observation Pulse Oximetry 92 100 Oxygen Delivery Method Room Air Nasal Cannula Nasal Cannula O2 L/MIN (L/min) 2 2 Blood Pressure (90/60-120/80) 147/78 H 131/39 H 169/56 H Blood Pressure Mean (mm Hg) 101 69 93 Source Monitor Monitor Monitor Position Semi-Fowlers Semi-Fowlers Semi-Fowlers Blood Pressure Location Right Arm Left Arm Right Arm History Since Last Visit- (Skip if this is Patient's initial visit) Have you changed medications since your No No No last visit? Any new allergies or adverse reactions No No No Had a fall/change in ADL's that may No No No increase risk of falls Signs or symptoms of abuse and/or No No No neglect since last visit Have you been in the hospital since your Yes No No last visit? Has dressing in place as prescribed Yes Yes Yes Has compression in place as prescribed Yes Yes Yes Has offloadiing in place as prescribed N/A No N/A Experienced any changes in pain level or No No No management Left Footwear Regular Shoe Regular Shoe Regular Shoe Right Footwear Regular Shoe Regular Shoe Regular Shoe Pain Scale: 0-10 Numeric Is Patient Pain Free? Yes Yes Yes 07/23/23 07/30/23 14:09 14:11 - Today's Visit Information Type of service Follow-up Visit Follow-up Visit (Physician/HOSPITAL TECHNICIAN (Physician/HOSPITAL TECHNICIAN ) ) Arrival Mode Ambulatory, Ambulatory, Walker Walker Transfer Assistance None None Patient Identification Verified (Name & Yes Yes ) Patient Requires Transmission-Based No Precautions Vital Signs Temperature (97.8 F-99.1 F) 97.7 F L 97.4 F L Temperature Source Temporal Temporal Pulse Rate (60-100) 71 73 Pulse Location Monitor Monitor Respiratory Rate (12-18) 20 H 18 Respiratory rate source Observation Observation Pulse Oximetry Oxygen Delivery Method Room Air O2 L/MIN (L/min) 2 Blood Pressure (90/60-120/80) 156/63 H 123/53 H Blood Pressure Mean (mm Hg) 94 76 Source Monitor Monitor Position Semi-Fowlers Blood Pressure Location Left Arm History Since Last Visit- (Skip if this is Patient's initial visit) Have you changed medications since your No No last visit? Any new allergies or adverse reactions No No Had a fall/change in ADL's that may No No increase risk of falls Signs or symptoms of abuse and/or No No neglect since last visit Have you been in the hospital since your No last visit? Has dressing in place as prescribed Yes Yes Has compression in place as prescribed Yes N/A Has offloadiing in place as prescribed Yes Yes Experienced any changes in pain level or No management Left Footwear Regular Shoe Right Footwear Regular Shoe Pain Scale: 0-10 Numeric Is Patient Pain Free? Yes Yes WC - Nurse 1 - General Ulcer Measurement Start: 07/02/23 13:36 Freq: Status: Active Protocol: Activity Type Activity Date Activity User E-sign Co-sign Detail Recorded Client Recorded Date Recorded By Document 07/02/23 13:36 GM Desktop 07/02/23 14:00 GM Document 07/09/23 14:08 KW Desktop 07/09/23 14:19 KW Document 07/16/23 14:26 KW Desktop 07/16/23 14:48 KW Document 07/23/23 14:09 DL Desktop 07/23/23 14:21 DL Document 07/30/23 14:11 Desktop 07/30/23 14:28 GM 07/02/23 07/09/23 07/16/23 13:36 14:08 14:26 Wound Center Nurse 1 #5 R Lutz, Inf -Current Size (cm) - Length 1.0 0.1 0.1 -Current Size (cm) - Width 0.5 0.1 0.1 -Current Size (cm) - Depth 0.1 0.1 0.1 -Total Square Cm 0.50 0.01 0.01 -Date of Last Picture (Recall this 07/16/23 field) -Photo Taken No Yes -Epithelialization None Present -Exudate Amt Medium -Exudate Type Serosanguineous -Wound Margin Distinct, Distinct, Outline Outline Attached Attached -Granulation Amt None Present (0 %) -Granulation Quality N/A -Structure Exposed N/A -Texture (Adelina-wound Skin Appearance) Assessed Assessed Assessed -Moisture (Adelina-wound Skin Appearance) Assessed Assessed Assessed -Color (Adelina-wound Skin Appearance) Assessed Assessed Assessed -Temperature (Adelina-wound Skin No Abnormality No Abnormality No Abnormality Appearance) (Pt Warm) (Pt Warm) (Pt Warm) -Tenderness on Palpation (Adelina-wound No No Skin Appearance) -Ulcer Cleansing Soap and Water Soap and Water Soap and Water -Foul Odor after Cleansing No -Anesthetic Used 5% Lidocaine 4% Lidocaine 4% Lidocaine Gel Solution Solution -Wound Comment(s) scabbed scabbed #2 L Heel -Current Size (cm) - Length 1 0.7 2.1 -Current Size (cm) - Width 2.2 2.2 0.5 -Current Size (cm) - Depth 0.1 0.1 0.1 -Total Square Cm 2.2 1.54 1.05 -Date of Last Picture (Recall this 07/16/23 field) -Photo Taken Yes -Epithelialization None Present -Tunneling No -Undermining/Tunneling No -Circular Undermining No -Exudate Amt None Present Medium -Exudate Type Serosanguineous -Wound Margin Distinct, Distinct, Outline Outline Attached Attached -Granulation Amt Small (1-33%) -Granulation Quality [place] -Slough/Fibrin -Necrosis Amt Large (67-100%) -Necrotic Tissue Type Adherent Slough -Structure Exposed N/A -Texture (Adelina-wound Skin Appearance) Assessed Callus Assessed -Moisture (Adelina-wound Skin Appearance) Assessed Dry/Scaly Assessed,Dry/ Scaly -Color (Adelina-wound Skin Appearance) Assessed Assessed Assessed -Temperature (Adelina-wound Skin No Abnormality No Abnormality No Abnormality Appearance) (Pt Warm) (Pt Warm) (Pt Warm) -Tenderness on Palpation (Adelina-wound No Skin Appearance) -Ulcer Cleansing Soap and Water Soap and Water Soap and Water -Foul Odor after Cleansing No -Anesthetic Used 5% Lidocaine 4% Lidocaine 4% Lidocaine Gel Solution Solution -Wound Comment(s) scabbed #4 R Med LE/ Trauma -Combined with other wound -Current Size (cm) - Length 4.5 3.6 3.5 -Current Size (cm) - Width 2.0 1.8 2.5 -Current Size (cm) - Depth 0.2 0.2 0.1 -Total Square Cm 9.00 6.48 8.75 -Date of Last Picture (Recall this 07/16/23 field) -Photo Taken Yes -Epithelialization Small 1-33% -Tunneling No -Undermining/Tunneling No -Circular Undermining No -Exudate Amt Medium Medium -Exudate Type Yellow/Green Serosanguineous Serosanguineous -Wound Margin Distinct, Distinct, Distinct, Outline Outline Outline Attached Attached Attached -Granulation Amt Small (1-33%) Medium (34-66%) Medium (34-66%) -Granulation Quality Red Red Red -Slough/Fibrin Yes -Necrosis Amt Medium (34-66%) Medium (34-66%) Medium (34-66%) -Necrotic Tissue Type Adherent Slough Adherent Slough Adherent Slough -Structure Exposed N/A -Texture (Adelina-wound Skin Appearance) Assessed Assessed Assessed -Moisture (Adelina-wound Skin Appearance) Assessed Assessed Maceration -Color (Adelina-wound Skin Appearance) Assessed Assessed, Assessed Erythema -Temperature (Adelina-wound Skin No Abnormality No Abnormality Appearance) (Pt Warm) (Pt Warm) -Tenderness on Palpation (Adelina-wound No Skin Appearance) -Ulcer Cleansing Soap and Water Soap and Water Soap and Water -Foul Odor after Cleansing Yes, Due to No Product Use -Anesthetic Used 5% Lidocaine 4% Lidocaine 4% Lidocaine Gel Solution Solution #3 R Lutz -Current Size (cm) - Length 4.1 3.8 2.9 -Current Size (cm) - Width 1 0.9 0.6 -Current Size (cm) - Depth 0.1 0.1 0.1 -Total Square Cm 4.1 3.42 1.74 -Date of Last Picture (Recall this 07/16/23 field) -Photo Taken No Yes -Epithelialization None Present -Tunneling No -Undermining/Tunneling No -Circular Undermining No -Exudate Amt Medium Medium Small -Exudate Type Yellow/Green Serosanguineous Serosanguineous -Wound Margin Distinct, Distinct, Distinct, Outline Outline Outline Attached Attached Attached -Granulation Amt Medium (34-66%) Medium (34-66%) Large (67-100%) -Granulation Quality Red Red Red -Necrosis Amt Medium (34-66%) Small (1-33%) Small (1-33%) -Necrotic Tissue Type Adherent Slough Adherent Slough Adherent Slough -Structure Exposed N/A -Texture (Adelina-wound Skin Appearance) Assessed Assessed Assessed -Moisture (Adelina-wound Skin Appearance) Assessed Assessed Assessed,Dry/ Scaly -Color (Adelina-wound Skin Appearance) Assessed Assessed, Assessed Erythema -Temperature (Adelina-wound Skin No Abnormality No Abnormality No Abnormality Appearance) (Pt Warm) (Pt Warm) (Pt Warm) -Tenderness on Palpation (Adelina-wound No Skin Appearance) -Ulcer Cleansing Soap and Water Soap and Water Soap and Water -Foul Odor after Cleansing No No -Anesthetic Used 5% Lidocaine 4% Lidocaine 4% Lidocaine Gel Solution Solution Lower Limb Edema Present Yes Right Calf (cm) 37.5 38.5 Point of measurement (cm from the medial instep) Right Ankle (cm) 21.5 20.3 Point of Measurement (cm from the medial instep) Left Calf (cm) 37 38.5 Left Ankle (cm) 21 20.8 07/23/23 07/30/23 14:09 14:11 Wound Center Nurse 1 #5 R Lutz, Inf -Current Size (cm) - Length -Current Size (cm) - Width -Current Size (cm) - Depth -Total Square Cm -Date of Last Picture (Recall this field) -Photo Taken -Epithelialization -Exudate Amt -Exudate Type -Wound Margin -Granulation Amt -Granulation Quality -Structure Exposed -Texture (Adelina-wound Skin Appearance) -Moisture (Adelina-wound Skin Appearance) -Color (Adelina-wound Skin Appearance) -Temperature (Adelina-wound Skin Appearance) -Tenderness on Palpation (Adelina-wound Skin Appearance) -Ulcer Cleansing -Foul Odor after Cleansing -Anesthetic Used -Wound Comment(s) #2 L Heel -Current Size (cm) - Length 0.4 0.4 -Current Size (cm) - Width 1.3 0.4 -Current Size (cm) - Depth 0.2 0.1 -Total Square Cm 0.52 0.16 -Date of Last Picture (Recall this field) -Photo Taken No -Epithelialization Medium 34-66% -Tunneling No -Undermining/Tunneling No -Circular Undermining No -Exudate Amt Medium Medium -Exudate Type Serosanguineous Yellow/Green -Wound Margin Distinct, Flat & Intact Outline Attached -Granulation Amt Small (1-33%) None Present (0 %) -Granulation Quality [place] Pale -Slough/Fibrin Yes -Necrosis Amt Large (67-100%) Medium (34-66%) -Necrotic Tissue Type Adherent Slough Adherent Slough -Structure Exposed N/A N/A -Texture (Adelina-wound Skin Appearance) Scarring Assessed -Moisture (Adelina-wound Skin Appearance) Maceration Assessed -Color (Adelina-wound Skin Appearance) Hemosiderin Assessed Staining -Temperature (Adelina-wound Skin No Abnormality No Abnormality Appearance) (Pt Warm) (Pt Warm) -Tenderness on Palpation (Adelina-wound No Skin Appearance) -Ulcer Cleansing Soap and Water Soap and Water -Foul Odor after Cleansing No No -Anesthetic Used 5% Lidocaine 5% Lidocaine Gel Gel -Wound Comment(s) #4 R Med LE/ Trauma -Combined with other wound No -Current Size (cm) - Length 3.4 3.3 -Current Size (cm) - Width 1.4 0.3 -Current Size (cm) - Depth 0.1 0.3 -Total Square Cm 4.76 0.99 -Date of Last Picture (Recall this 07/30/23 field) -Photo Taken Yes -Epithelialization -Tunneling No -Undermining/Tunneling No -Circular Undermining No -Exudate Amt Small Small -Exudate Type Serosanguineous Sanguineous -Wound Margin Thickened Distinct, Outline Attached -Granulation Amt None Present (0 %) -Granulation Quality -Slough/Fibrin -Necrosis Amt Large (67-100%) -Necrotic Tissue Type Adherent Slough -Structure Exposed N/A -Texture (Adelina-wound Skin Appearance) Localized Edema Assessed ,Scarring -Moisture (Adelina-wound Skin Appearance) Dry/Scaly Assessed -Color (Adelina-wound Skin Appearance) Hemosiderin Assessed Staining -Temperature (Adelina-wound Skin No Abnormality No Abnormality Appearance) (Pt Warm) (Pt Warm) -Tenderness on Palpation (Adelina-wound No Skin Appearance) -Ulcer Cleansing Soap and Water Soap and Water -Foul Odor after Cleansing No -Anesthetic Used 5% Lidocaine 5% Lidocaine Gel Gel #3 R Lutz -Current Size (cm) - Length 3.3 3.2 -Current Size (cm) - Width 0.6 0.5 -Current Size (cm) - Depth 0.1 0.1 -Total Square Cm 1.98 1.60 -Date of Last Picture (Recall this 07/30/23 field) -Photo Taken Yes -Epithelialization -Tunneling -Undermining/Tunneling -Circular Undermining -Exudate Amt Small Small -Exudate Type Serosanguineous Sanguineous -Wound Margin Thickened Distinct, Outline Attached -Granulation Amt None Present (0 %) -Granulation Quality -Necrosis Amt Large (67-100%) -Necrotic Tissue Type Eschar -Structure Exposed N/A -Texture (Adelina-wound Skin Appearance) Localized Edema Assessed ,Scarring -Moisture (Adelina-wound Skin Appearance) Dry/Scaly Assessed -Color (Adelina-wound Skin Appearance) Hemosiderin Assessed Staining -Temperature (Adelina-wound Skin No Abnormality No Abnormality Appearance) (Pt Warm) (Pt Warm) -Tenderness on Palpation (Adelina-wound No No Skin Appearance) -Ulcer Cleansing Soap and Water Soap and Water -Foul Odor after Cleansing No No -Anesthetic Used 5% Lidocaine 5% Lidocaine Gel Gel Lower Limb Edema Present Right Calf (cm) 36.5 Point of measurement (cm from the medial 32.5 instep) Right Ankle (cm) 22 Point of Measurement (cm from the medial 22.5 instep) Left Calf (cm) 35.4 34.8 Left Ankle (cm) 21.1 21.6 WC - Nurse 2 - General Ulcer CM Notes Start: 07/02/23 13:36 Freq: Status: Active Protocol: Activity Type Activity Date Activity User E-sign Co-sign Detail Recorded Client Recorded Date Recorded By Document 07/02/23 14:25 Laptop 07/02/23 14:35 Document 07/09/23 14:35 Laptop 07/09/23 14:48 Document 07/16/23 15:05 Laptop 07/16/23 15:11 Document 07/23/23 14:31 Laptop 07/23/23 14:40 Document 07/30/23 14:38 Laptop 07/30/23 14:43 07/02/23 07/09/23 07/16/23 14:25 14:35 15:05 Wound Center Nurse 2 #5 Calvin Lutz, Inf -Time 14:26 14:35 -Correct Patient Yes Yes No -Correct Side, Site, Position Yes Yes No -Correct Procedure Yes Yes No -Procedure Performed Yes Yes No -Type of Procedure Debridement Debridement -Clinical Debridement Subcutaneous Subcutaneous -Tissue Removed Subcutaneous Subcutaneous -Post Debridement (cm) - Length 1.0 0.7 0 -Post Debridement (cm) - Width 0.7 0.4 0 -Post Debridement (cm) - Depth 0.1 0.1 0 -Total Square (Post) (cm) 0.70 0.28 0 -Area of Debridement (cm) - Length 1.0 0.7 0 -Area of Debridement (cm) - Width 0.7 0.4 0 -Total Square (Area) (cm) 0.70 0.28 0 -Tunneling No No -Undermining/Tunneling No No -Circular Undermining No No -Wound/Ulcer Outcome Not Healed Not Healed Healed- Epithelialized -Ulcer Cleansing Wound Cleanser Rinsed/ Irrigated with Saline -Foul Odor after Cleansing No No -Bioengineered Tissue No No -Bleeding Controlled with Pressure Pressure -Treatment Response Procedure Procedure Tolerated Well Tolerated Well -Offloading No No -Debridement - Subq, 1st 20sq cm No No #2 L Heel -Time 14:32 14:36 -Correct Patient Yes Yes No -Correct Side, Site, Position Yes Yes No -Correct Procedure Yes Yes No -Procedure Performed Yes Yes No -Type of Procedure Debridement Debridement -Clinical Debridement Subcutaneous Subcutaneous -Tissue Removed Subcutaneous Subcutaneous -Post Debridement (cm) - Length 1.7 1.1 0.1 -Post Debridement (cm) - Width 1.0 0.4 0.1 -Post Debridement (cm) - Depth 0.1 0.1 0.1 -Total Square (Post) (cm) 1.70 0.44 0.01 -Area of Debridement (cm) - Length 1.7 1.1 0.1 -Area of Debridement (cm) - Width 1.0 0.4 0.1 -Total Square (Area) (cm) 1.70 0.44 0.01 -Tunneling No No -Undermining/Tunneling No No -Circular Undermining No No -Wound/Ulcer Outcome Not Healed Not Healed Healed- Epithelialized -Ulcer Cleansing Rinsed/ Rinsed/ Irrigated with Irrigated with Saline Saline -Foul Odor after Cleansing No No -Bioengineered Tissue Yes Yes -Type of Bioengineered Tissue Epifix Epifix 18mm Disc -Expiration Date 02/29/28 02/29/28 -Product Lot Number [id number] -Percent Used 100 100 -Lot number of Saline Used [id number] -Bleeding Controlled with Pressure Pressure -Treatment Response Procedure Procedure Tolerated Well Tolerated Well -Offloading No No -Debridement - Open, 1st 20sq cm -Debridement - Subq, 1st 20sq cm No No -Apply Skin Sub - 1st 25 sq cm - Feet 1 1 -Epifix (per sq cm) 4 -Epifix 18mm Disc 3 #4 R Med LE/ Trauma -Time 14:27 14:36 15:05 -Correct Patient Yes Yes Yes -Correct Side, Site, Position Yes Yes Yes -Correct Procedure Yes Yes Yes -Procedure Performed Yes Yes Yes -Type of Procedure Debridement Debridement Debridement -Clinical Debridement Subcutaneous Subcutaneous Subcutaneous -Tissue Removed Subcutaneous Subcutaneous Subcutaneous -Post Debridement (cm) - Length 4.5 4.0 4.0 -Post Debridement (cm) - Width 2.0 1.7 1.7 -Post Debridement (cm) - Depth 0.2 0.2 0.2 -Total Square (Post) (cm) 9.00 6.80 6.80 -Area of Debridement (cm) - Length 4.5 4.0 4.0 -Area of Debridement (cm) - Width 2.0 1.7 1.7 -Total Square (Area) (cm) 9.00 6.80 6.80 -Tunneling No No No -Undermining/Tunneling No No No -Circular Undermining No No No -Wound/Ulcer Outcome Not Healed Not Healed Not Healed -Ulcer Cleansing Rinsed/ Rinsed/ Rinsed/ Irrigated with Irrigated with Irrigated with Saline Saline Saline -Foul Odor after Cleansing No No No -Bioengineered Tissue No No Yes -Type of Bioengineered Tissue -Type of Bioengineered Tissue Epifix Mesh -Expiration Date 02/29/28 -Product Lot Number [id number] -Percent Used 100 -Lot number of Saline Used [id number] -Bleeding Controlled with Pressure Pressure Pressure -Treatment Response Procedure Procedure Procedure Tolerated Well Tolerated Well Tolerated Well -Offloading No No No -Debridement - Subq, 1st 20sq cm No No No -Apply Skin Sub - 1st 25 sq cm - Legs 1 -Epifix (per sq cm) -Epifix Mesh (per sq cm) 11 #3 R Lutz -Time 14:27 14:36 15:06 -Correct Patient Yes Yes Yes -Correct Side, Site, Position Yes Yes Yes -Correct Procedure Yes Yes Yes -Procedure Performed Yes Yes Yes -Type of Procedure Debridement Debridement Debridement -Clinical Debridement Subcutaneous Subcutaneous Subcutaneous -Tissue Removed Subcutaneous Subcutaneous Subcutaneous -Post Debridement (cm) - Length 4.2 3.8 3.5 -Post Debridement (cm) - Width 1.0 0.7 0.5 -Post Debridement (cm) - Depth 0.1 0.1 0.1 -Total Square (Post) (cm) 4.20 2.66 1.75 -Area of Debridement (cm) - Length 4.2 3.8 3.5 -Area of Debridement (cm) - Width 1.0 0.7 0.5 -Total Square (Area) (cm) 4.20 2.66 1.75 -Tunneling No No No -Undermining/Tunneling No No No -Circular Undermining No No No -Wound/Ulcer Outcome Not Healed Not Healed Not Healed -Ulcer Cleansing Rinsed/ Rinsed/ Rinsed/ Irrigated with Irrigated with Irrigated with Saline Saline Saline -Foul Odor after Cleansing No No No -Bioengineered Tissue No No No -Bleeding Controlled with Pressure Pressure Pressure -Treatment Response Procedure Procedure Procedure Tolerated Well Tolerated Well Tolerated Well -Offloading No No No -Debridement - Subq, 1st 20sq cm Yes Yes Yes Pain Scale: 0-10 Numeric Is Patient Pain Free? Yes Yes Yes 07/23/23 07/30/23 14:31 14:38 Wound Center Nurse 2 #5 R Lutz, Inf -Time -Correct Patient -Correct Side, Site, Position -Correct Procedure -Procedure Performed -Type of Procedure -Clinical Debridement -Tissue Removed -Post Debridement (cm) - Length -Post Debridement (cm) - Width -Post Debridement (cm) - Depth -Total Square (Post) (cm) -Area of Debridement (cm) - Length -Area of Debridement (cm) - Width -Total Square (Area) (cm) -Tunneling -Undermining/Tunneling -Circular Undermining -Wound/Ulcer Outcome -Ulcer Cleansing -Foul Odor after Cleansing -Bioengineered Tissue -Bleeding Controlled with -Treatment Response -Offloading -Debridement - Subq, 1st 20sq cm #2 L Heel -Time 14:32 -Correct Patient Yes No -Correct Side, Site, Position Yes No -Correct Procedure Yes No -Procedure Performed Yes No -Type of Procedure Debridement -Clinical Debridement Epidermis / Dermis -Tissue Removed Epidermis, Dermis -Post Debridement (cm) - Length 0.5 0 -Post Debridement (cm) - Width 0.3 0 -Post Debridement (cm) - Depth 0.1 0 -Total Square (Post) (cm) 0.15 0 -Area of Debridement (cm) - Length 0.5 0 -Area of Debridement (cm) - Width 0.3 0 -Total Square (Area) (cm) 0.15 0 -Tunneling No -Undermining/Tunneling No -Circular Undermining No -Wound/Ulcer Outcome Not Healed Healed- Epithelialized -Ulcer Cleansing Rinsed/ Irrigated with Saline -Foul Odor after Cleansing No -Bioengineered Tissue No -Type of Bioengineered Tissue -Expiration Date -Product Lot Number -Percent Used -Lot number of Saline Used -Bleeding Controlled with Pressure -Treatment Response Procedure Tolerated Well -Offloading No -Debridement - Open, 1st 20sq cm Yes -Debridement - Subq, 1st 20sq cm -Apply Skin Sub - 1st 25 sq cm - Feet -Epifix (per sq cm) -Epifix 18mm Disc #4 R Med LE/ Trauma -Time 14:32 14:38 -Correct Patient Yes Yes -Correct Side, Site, Position Yes Yes -Correct Procedure Yes Yes -Procedure Performed Yes Yes -Type of Procedure Debridement Debridement -Clinical Debridement Subcutaneous Subcutaneous -Tissue Removed Subcutaneous Subcutaneous -Post Debridement (cm) - Length 3.4 3.4 -Post Debridement (cm) - Width 1.4 1.1 -Post Debridement (cm) - Depth 0.2 0.1 -Total Square (Post) (cm) 4.76 3.74 -Area of Debridement (cm) - Length 3.4 3.4 -Area of Debridement (cm) - Width 1.4 1.1 -Total Square (Area) (cm) 4.76 3.74 -Tunneling No No -Undermining/Tunneling No No -Circular Undermining No No -Wound/Ulcer Outcome Not Healed Not Healed -Ulcer Cleansing Rinsed/ Rinsed/ Irrigated with Irrigated with Saline Saline -Foul Odor after Cleansing No No -Bioengineered Tissue Yes Yes -Type of Bioengineered Tissue Epifix Mesh Epifix -Type of Bioengineered Tissue -Expiration Date 02/29/28 03/30/28 -Product Lot Number [id number] -Percent Used 100 100 -Lot number of Saline Used [id number] -Bleeding Controlled with Pressure Pressure -Treatment Response Procedure Procedure Tolerated Well Tolerated Well -Offloading No No -Debridement - Subq, 1st 20sq cm No No -Apply Skin Sub - 1st 25 sq cm - Legs 1 1 -Epifix (per sq cm) 4 -Epifix Mesh (per sq cm) 11 #3 R Lutz -Time 14:31 14:41 -Correct Patient Yes Yes -Correct Side, Site, Position Yes Yes -Correct Procedure Yes Yes -Procedure Performed Yes Yes -Type of Procedure Debridement Debridement -Clinical Debridement Subcutaneous Subcutaneous -Tissue Removed Subcutaneous Subcutaneous -Post Debridement (cm) - Length 3.0 2.1 -Post Debridement (cm) - Width 0.4 0.4 -Post Debridement (cm) - Depth 0.1 0.1 -Total Square (Post) (cm) 1.20 0.84 -Area of Debridement (cm) - Length 3.0 2.1 -Area of Debridement (cm) - Width 0.4 0.4 -Total Square (Area) (cm) 1.20 0.84 -Tunneling No No -Undermining/Tunneling No No -Circular Undermining No No -Wound/Ulcer Outcome Not Healed Not Healed -Ulcer Cleansing Rinsed/ Rinsed/ Irrigated with Irrigated with Saline Saline -Foul Odor after Cleansing No No -Bioengineered Tissue No No -Bleeding Controlled with Pressure Pressure -Treatment Response Procedure Procedure Tolerated Well Tolerated Well -Offloading No No -Debridement - Subq, 1st 20sq cm Yes Yes Pain Scale: 0-10 Numeric Is Patient Pain Free? Yes Yes WC - Nurse 3 - General Ulcer D/C NN Start: 07/02/23 13:36 Freq: Status: Active Protocol: Activity Type Activity Date Activity User E-sign Co-sign Detail Recorded Client Recorded Date Recorded By Document 07/02/23 14:56 GM Desktop 07/02/23 14:58 GM Document 07/09/23 14:54 KW Desktop 07/09/23 14:54 KW Document 07/16/23 15:20 Desktop 07/16/23 15:21 Document 07/23/23 14:59 BMF Desktop 07/23/23 15:00 BMF 07/02/23 07/09/23 07/16/23 14:56 14:54 15:20 Wound Care Center Nurse 3 #5 R Lutz, Inf -Ulcer Cleansing Not Cleansed -Foul Odor after Cleansing No -Negative Pressure Wound Therapy N/A -Primary Dressing Covered/Secured with Dry Gauze,Dry Dry Gauze & Gauze & Roll Roll Gauze, Gauze,Secured Secured with with Tape Tape #2 L Heel -Ulcer Cleansing Not Cleansed -Foul Odor after Cleansing -Negative Pressure Wound Therapy N/A -Other Dressing -Primary Dressing Covered/Secured with Dry Gauze,Dry Dry Gauze & Dry Gauze Gauze & Roll Roll Gauze, Gauze,Secured Secured with with Tape Tape #4 R Med LE/ Trauma -Ulcer Cleansing Not Cleansed -Foul Odor after Cleansing No -Negative Pressure Wound Therapy N/A -Other Dressing -Primary Dressing Covered/Secured with Dry Gauze,Dry Dry Gauze & Dry Gauze & Gauze & Roll Roll Gauze, Roll Gauze, Gauze,Secured Secured with Secured with with Tape Tape Tape -Other Covering #3 R Lutz -Ulcer Cleansing Not Cleansed -Foul Odor after Cleansing No -Negative Pressure Wound Therapy N/A -Other Dressing -Primary Dressing Covered/Secured with Dry Gauze,Dry Dry Gauze Dry Gauze & Gauze & Roll Roll Gauze, Gauze,Secured Secured with with Tape Tape BLE -Tubular Bandage -Size of Tubigrip Used -Size E ($) -Other Right -Tubular Bandage Double Layer Double Layer Double Layer -Size of Tubigrip Used Size D Size D Size D -Size D ($) 2 2 2 Left -Lotion applied to leg before No compression wrap -Tubular Bandage Double Layer Double Layer Double Layer -Size of Tubigrip Used Size D Size D Size D -Size D ($) 2 2 2 Treatment Response Pain Scale: 0-10 Numeric Is Patient Pain Free? Yes Yes Yes Teaching: Wound Center Eliminating Foot Pressure -Person Taught Patient -Teaching Method Discussion -Response to teaching Verbalize understanding Dressing Your Wound -Person Taught Patient -Teaching Method Demonstration -Response to teaching Verbalize understanding WC - Visit Discharge Discharge Condition Stable Stable Stable Ambulatory Status Ambulatory, Ambulatory, Ambulatory, Walker Walker Walker Transportation Private Auto Private Auto Private Auto Medication Reconcilliation completed & Yes No No provided to patient/care provider Clinical Summary of Care Provided Yes Yes Yes Facility Type 07/23/23 14:59 Wound Care Center Nurse 3 #5 R Lutz, Inf -Ulcer Cleansing -Foul Odor after Cleansing -Negative Pressure Wound Therapy -Primary Dressing Covered/Secured with #2 L Heel -Ulcer Cleansing Rinsed/ Irrigated with Saline -Foul Odor after Cleansing No -Negative Pressure Wound Therapy -Other Dressing BETADINE PAINT; HEEL HAT & FLUFFED GAUZE -Primary Dressing Covered/Secured with Dry Gauze & Roll Gauze, Secured with Tape #4 R Med LE/ Trauma -Ulcer Cleansing -Foul Odor after Cleansing -Negative Pressure Wound Therapy -Other Dressing EPIMESH; -Primary Dressing Covered/Secured with Dry Gauze & Roll Gauze, Secured with Tape -Other Covering ABD #3 R Lutz -Ulcer Cleansing -Foul Odor after Cleansing -Negative Pressure Wound Therapy -Other Dressing EPIMESH; ABD -Primary Dressing Covered/Secured with Dry Gauze & Roll Gauze, Secured with Tape BLE -Tubular Bandage Double Layer -Size of Tubigrip Used Size E -Size E ($) 2 -Other [employer] TUBI SIZE E Right -Tubular Bandage -Size of Tubigrip Used -Size D ($) Left -Lotion applied to leg before compression wrap -Tubular Bandage -Size of Tubigrip Used -Size D ($) Treatment Response Procedure Tolerated Well Pain Scale: 0-10 Numeric Is Patient Pain Free? Yes Teaching: Wound Center Eliminating Foot Pressure -Person Taught -Teaching Method -Response to teaching Dressing Your Wound -Person Taught -Teaching Method -Response to teaching WC - Visit Discharge Discharge Condition Stable Ambulatory Status Ambulatory, Walker Transportation Private Auto Medication Reconcilliation completed & provided to patient/care provider Clinical Summary of Care Provided Facility Type Home Health Assessment/Plan Assessment/Plan (1) Non-pressure chronic ulcer of unspecified part of right lower leg with fat layer exposed: CODE(S): L97.912 - Non-pressure chronic ulcer of unspecified part of right lower leg with fat layer exposed PLAN: Patient was examined and evaluated. All findings were discussed with the patient. All questions were answered to the patient's satisfaction. Excisional debridement with 5 mm dermal curette down to and including subcutaneous tissue to the right anterior leg ulceration without incident. Predebridement measurement is sanguinous crust. Post debridement measurement is 2.1 x 0.4 x 0.1 cm cm. Excisional debridement with 5 mm dermal curette down to and including subcutaneous tissue, to the right proximal medial leg ulceration without incident. Predebridement measurement is sanguinous crust Post debrdiement measurement is 3.4 x 1.0 x 0.1 cm. EpiFix 2.0 x 2.0 cm was applied to the right proximal full-thickness ulceration with 100% use. Third application. The graft site was free and clear of any infection. The wound/skin graft substitute was dressed with nonadherent bandage secured in place with Steri-Strips followed by bolster dressing as well as a double layer Tubigrip. Patient states that home health care will be coming this Friday for dressing changes. Educated the patient to continue use his home oxygen as instructed. He was understanding of this. Patient's left heel is now healed and he continue to ambulate as tolerated but making sure that he checks the plantar aspect of both feet. Follow-up at the wound care center with Dr. Sampson in 1 week. (2) Edema: CODE(S): R60.9 - Edema, unspecified QUALIFIERS: Edema type: generalized Qualified Code(s): R60.1 - Generalized edema
== END 2023-07-30 23:59 | disposition home or self-care (01) ==
LOC: WC 14:15
PROVIDERS: PCP Family Medicine; Referring Provider Internal Medicine; Visit Provider Podiatrist Foot & Ankle Surgery
DX: I73.9 Peripheral vascular disease, unspecified (principal); L97.422 Non-pressure chronic ulcer of left heel and midfoot with fat layer exposed; L97.812 Non-pressure chronic ulcer of other part of right lower leg with fat layer exposed; R06.02 Shortness of breath; Z99.81 Dependence on supplemental oxygen; R06.09 Other forms of dyspnea
CPT/HCPCS: 11042; 15271; 15275; 97597; Q4186

== ENCOUNTER → 2023-08-19 | Outpatient (CLI) | payer MEDICARE, OTHER, SELFPAY ==
[2023-08-19 15:01] LABS: Anion Gap 7 (5-15); BUN 66 mg/dL (7-18); BUN/Creat Ratio 22.2 RATIO (10-20); Calcium,Total 8.9 mg/dL (8.5-10.1); Chloride 110 mmol/L (98-107); Creatinine, Serum 2.97 mg/dL (0.70-1.30); EST Glomerular Filtration Rate 22 mL/min (>60); Est Glom Filt Rate - Afr Amer 26 mL/min (>60); Glucose 118 mg/dL (74-106); Potassium 4.8 mmol/L (3.5-5.1); Sodium Level 140 mmol/L (136-145)
== END | disposition home or self-care (01) ==
LOC: PAVLAB 14:25
PROVIDERS: PCP Family Medicine; Referring Provider Family Medicine; Visit Provider Family Medicine
DX: E87.5 Hyperkalemia (principal)
CPT/HCPCS: 36415; 80048

== ENCOUNTER 2023-08-27 13:00 | Outpatient (RCR) | payer MEDICARE, OTHER, SELFPAY ==
[2023-07-31 00:13] VITALS: BP 123/53; PULSE 73; RESP 18; TEMP 36.3; O2SAT 100
[2023-08-06 14:08] VITALS: RESP 18; TEMP 36.1
--- NOTE | 2023-08-06 15:44 | PN.PCM_ITS ---
History of Present Illness Date of Service: 08/06/23 Chief Complaint: Left foot ulcerations History of Wound: Chronic wounds left foot self treatment as well as SNF treatment Subjective Subjective Mr. Arreola is a 82-year-old male presenting for follow-up of bilateral leg ulcerations. Patient states that home health care has not come to his home for dressing changes but coming Friday. He presents today to the wound care center for follow-up evaluation. He denies any recent falls. He denies constitutional symptoms. No other pedal complaints at this time. Objective Data Objective Data Vital Signs: Vital Signs Temp Pulse Resp BP Pulse Ox O2 Del Method O2 Flow Rate 96.9 F L 73 18 123/53 H 100 Room Air 2 08/06/23 14:08 07/31/23 00:13 08/06/23 14:08 07/31/23 00:13 07/31/23 00:13 08/06/23 14:08 07/31/23 00:13 Oxygen Flow Rate (L/min) 2 Oxygen Delivery Method Room Air Physical Exam Narrative Vascular: DP and PT pulses are faintly palpable. CFT is delayed. Evidence of hemosiderin deposits appreciated bilateral lower extremity. Skin temperature great is warm to warm from proximal ankle to distal digit. Nonpitting edema appreciated to the right lower extremity. No focal increase noted. Neurological: Light touch intact. Epic or station is diminished. Patient does not respond to painful stimuli. Dermatological: Full-thickness ulceration appreciated to the left heel, is healed. Evidence of full-thickness ulceration secondary to laceration to anterior aspect of the right leg. Right leg central ulceration is healed, proximal medial leg measures 2.0 x 0.7 x 0.1 cm. All wounds are under percent granular nature. No sign of infection. Excisional debridement with 5 mm dermal curette down to and including subcutaneous tissue, to the right proximal medial leg ulceration without incident. Predebridement measurement is sanguinous crust Post debrdiement measurement is 2.0 x 0.7 x 0.1 cm. EpiFix 18 mm disc was applied to the right proximal full-thickness ulceration with 100% use. Fourth application. The graft site was free and clear of any infection. The wound/skin graft substitute was dressed with nonadherent bandage secured in place with Steri-Strips followed by bolster dressing as well as a double layer Tubigrip. Musculoskeletal: No pain on palpation or with sharp debridement to both ulcerations to the left foot. No pain with calf compression. Debridement Note Debridement Note Debridement Free Text: Excisional debridement with 5 mm dermal curette down to and including subcutaneous tissue, to the right proximal medial leg ulceration without incident. Predebridement measurement is sanguinous crust Post debrdiement measurement is 2.0 x 0.7 x 0.1 cm. EpiFix 18 mm disc was applied to the right proximal full-thickness ulceration with 100% use. Fourth application. The graft site was free and clear of any infection. The wound/skin graft substitute was dressed with nonadherent bandage secured in place with Steri-Strips followed by bolster dressing as well as a double layer Tubigrip. Post-Debridement Measurements and Additional Note: Post-Debridement Measurements/Treatment - Nurse 1 - General Ulcer Assessment Start: 08/06/23 14:08 Freq: Status: Active Protocol: GE Activity Type Activity Date Activity User E-sign Co-sign Detail Recorded Client Recorded Date Recorded By Document 08/06/23 14:08 KW Desktop 08/06/23 14:20 KW 08/06/23 14:08 - Today's Visit Information Type of service Follow-up Visit (Physician/TRAIN DISPATCHER ) Arrival Mode Ambulatory, Walker Patient Identification Verified (Name & Yes ) Vital Signs Temperature (97.8 F-99.1 F) 96.9 F L Temperature Source Temporal Pulse Location Monitor Respiratory Rate (12-18) 18 Respiratory rate source Observation Oxygen Delivery Method Room Air History Since Last Visit- (Skip if this is Patient's initial visit) Have you changed medications since your No last visit? Any new allergies or adverse reactions No Had a fall/change in ADL's that may No increase risk of falls Signs or symptoms of abuse and/or No neglect since last visit Have you been in the hospital since your No last visit? Has dressing in place as prescribed Yes Has compression in place as prescribed Yes Has offloadiing in place as prescribed N/A Experienced any changes in pain level or No management Left Footwear Regular Shoe Right Footwear Regular Shoe Pain Scale: 0-10 Numeric Is Patient Pain Free? Yes - Nurse 1 - General Ulcer Measurement Start: 08/06/23 14:08 Freq: Status: Active Protocol: Activity Type Activity Date Activity User E-sign Co-sign Detail Recorded Client Recorded Date Recorded By Document 08/06/23 14:08 KW Desktop 08/06/23 14:20 KW 08/06/23 14:08 Wound Center Nurse 1 #3 R Lutz -Current Size (cm) - Length 0.1 -Current Size (cm) - Width 0.1 -Current Size (cm) - Depth 0.1 -Total Square Cm 0.01 -Temperature (Adelina-wound Skin No Abnormality Appearance) (Pt Warm) -Ulcer Cleansing Soap and Water -Anesthetic Used 5% Lidocaine Gel -Wound Comment(s) wound was scapped #4 R Med LE/ Trauma -Current Size (cm) - Length 0.1 -Current Size (cm) - Width 0.1 -Current Size (cm) - Depth 0.1 -Total Square Cm 0.01 -Ulcer Cleansing Soap and Water -Anesthetic Used 5% Lidocaine Gel -Wound Comment(s) wound was scabbed over. Right Calf (cm) 35.5 Right Ankle (cm) 22.3 WC - Nurse 2 - General Ulcer CM Notes Start: 08/06/23 14:08 Freq: Status: Active Protocol: Activity Type Activity Date Activity User E-sign Co-sign Detail Recorded Client Recorded Date Recorded By Document 08/06/23 14:31 JF Laptop 08/06/23 14:39 08/06/23 14:31 Wound Center Nurse 2 #3 R Lutz -Correct Patient No -Correct Side, Site, Position No -Correct Procedure No -Procedure Performed No -Post Debridement (cm) - Length 0 -Post Debridement (cm) - Width 0 -Post Debridement (cm) - Depth 0 -Total Square (Post) (cm) 0 -Area of Debridement (cm) - Length 0 -Area of Debridement (cm) - Width 0 -Total Square (Area) (cm) 0 -Wound/Ulcer Outcome Healed- Epithelialized #4 R Med LE/ Trauma -Correct Patient Yes -Correct Side, Site, Position Yes -Correct Procedure Yes -Procedure Performed Yes -Type of Procedure Debridement -Clinical Debridement Subcutaneous -Tissue Removed Subcutaneous -Post Debridement (cm) - Length 2.0 -Post Debridement (cm) - Width 0.7 -Post Debridement (cm) - Depth 0.2 -Total Square (Post) (cm) 1.40 -Area of Debridement (cm) - Length 2.0 -Area of Debridement (cm) - Width 0.7 -Total Square (Area) (cm) 1.40 -Tunneling No -Undermining/Tunneling No -Circular Undermining No -Wound/Ulcer Outcome Not Healed -Ulcer Cleansing Rinsed/ Irrigated with Saline -Foul Odor after Cleansing No -Bioengineered Tissue Yes -Type of Bioengineered Tissue Epifix 18mm Disc -Expiration Date 03/30/28 -Product Lot Number [id number] -Percent Used 100 -Bleeding Controlled with Pressure -Treatment Response Procedure Tolerated Well -Offloading No -Debridement - Subq, 1st 20sq cm No -Apply Skin Sub - 1st 25 sq cm - Legs 1 -Epifix 18mm Disc 3 Pain Scale: 0-10 Numeric Is Patient Pain Free? Yes - Nurse 3 - General Ulcer D/C NN Start: 08/06/23 14:08 Freq: Status: Active Protocol: Activity Type Activity Date Activity User E-sign Co-sign Detail Recorded Client Recorded Date Recorded By Document 08/06/23 14:45 DL Desktop 08/06/23 14:48 DL Edit Result 08/06/23 14:45 DL (1) Desktop 08/06/23 14:50 DL (1) Left - Tubular Bandage Double Layer => - Size E ($) 2 => Notes: => Pt refused Tubigrip to [facility] Today 08/06/23 14:45 Wound Care Center Nurse 3 #4 R Med LE/ Trauma -Ulcer Cleansing Not Cleansed -Foul Odor after Cleansing No -Primary Dressing Applied Mepilex Border -Other Dressing epifix -Mepilex Border 1 Right -Tubular Bandage Double Layer -Size of Tubigrip Used Size E -Size E ($) 2 Left -Size of Tubigrip Used Size E Treatment Response Procedure Tolerated Well Pain Scale: 0-10 Numeric Is Patient Pain Free? Yes - Visit Discharge Discharge Condition Stable Ambulatory Status Ambulatory Transportation Private Auto Notes: Pt refused Tubigrip to [facility] Today Facility Type Home Health Orders Sent Yes Assessment/Plan Assessment/Plan (1) Non-pressure chronic ulcer of unspecified part of right lower leg with fat layer exposed: CODE(S): L97.912 - Non-pressure chronic ulcer of unspecified part of right lower leg with fat layer exposed PLAN: Patient was examined and evaluated. All findings were discussed with the patient. All questions were answered to the patient's satisfaction. Excisional debridement with 5 mm dermal curette down to and including subcutaneous tissue, to the right proximal medial leg ulceration without incident. Predebridement measurement is sanguinous crust Post debrdiement measurement is 2.0 x 0.7 x 0.1 cm. EpiFix 18 mm disc was applied to the right proximal full-thickness ulceration wi th 100% use. Fourth application. The graft site was free and clear of any infection. The wound/skin graft substitute was dressed with nonadherent bandage secured in place with Steri-Strips followed by bolster dressing as well as a double layer Tubigrip. Follow-up at the wound care center with Dr. Sampson in 1 week. (2) Edema: CODE(S): R60.9 - Edema, unspecified QUALIFIERS: Edema type: generalized Qualified Code(s): R60.1 - Generalized edema
[2023-08-13 13:13] VITALS: BP 149/57; PULSE 67; RESP 18
--- NOTE | 2023-08-13 13:25 | PCM.WC.PN ---
History of Present Illness Date of Service: 08/13/23 Chief Complaint: Left foot ulcerations History of Wound: Chronic wounds left foot self treatment as well as SNF treatment Subjective Subjective Mr. Arreola is a 82-year-old male presenting for follow-up of bilateral leg ulcerations. Patient states that home health care has come to his home for dressing changes Friday. He presents today to the wound care center for follow-up evaluation. He denies any recent falls. He denies constitutional symptoms. No other pedal complaints at this time. Objective Data Objective Data Vital Signs: Vital Signs Temp Pulse Resp BP Pulse Ox O2 Del Method O2 Flow Rate 96.9 F L 67 18 149/57 H 100 Room Air 2 08/06/23 14:08 08/13/23 13:13 08/13/23 13:13 08/13/23 13:13 07/31/23 00:13 08/13/23 13:13 07/31/23 00:13 Oxygen Flow Rate (L/min) 2 Oxygen Delivery Method Room Air Physical Exam Narrative Vascular: DP and PT pulses are faintly palpable. CFT is delayed. Evidence of hemosiderin deposits appreciated bilateral lower extremity. Skin temperature great is warm to warm from proximal ankle to distal digit. Nonpitting edema appreciated to the right lower extremity. No focal increase noted. Neurological: Light touch intact. Epic or station is diminished. Patient does not respond to painful stimuli. Dermatological: Full-thickness ulceration appreciated to the left heel, is healed. Evidence of full-thickness ulceration secondary to laceration to anterior aspect of the right leg. Right leg central ulceration is healed, proximal medial leg measures 1.9 x 0.8 x 0.1 cm. All wounds are under percent granular nature. No sign of infection. Excisional debridement with 5 mm dermal curette down to and including subcutaneous tissue, to the right proximal medial leg ulceration without incident. Predebridement measurement is sanguinous crust. Post debrdiement measurement is 1.9 x 0.8 x 0.1 cm. EpiFix 18 mm disc was applied to the right proximal full-thickness ulceration with 100% use. Fifth application. The graft site was free and clear of any infection. The wound/skin graft substitute was dressed with nonadherent bandage secured in place with Steri-Strips followed by bolster dressing as well as a double layer Tubigrip. Musculoskeletal: No pain on palpation or with sharp debridement to both ulcerations to the left foot. No pain with calf compression. Debridement Note Debridement Note Debridement Free Text: Excisional debridement with 5 mm dermal curette down to and including subcutaneous tissue, to the right proximal medial leg ulceration without incident. Predebridement measurement is sanguinous crust. Post debrdiement measurement is 1.9 x 0.8 x 0.1 cm. EpiFix 18 mm disc was applied to the right proximal full-thickness ulceration with 100% use. Fifth application. The graft site was free and clear of any infection. The wound/skin graft substitute was dressed with nonadherent bandage secured in place with Steri-Strips followed by bolster dressing as well as a double layer Tubigrip. Post-Debridement Measurements and Additional Note: Post-Debridement Measurements/Treatment WC - Nurse 1 - General Ulcer Assessment Start: 08/06/23 14:08 Freq: Status: Active Protocol: WC.[email or web address] Activity Type Activity Date Activity User E-sign Co-sign Detail Recorded Client Recorded Date Recorded By Document 08/06/23 14:08 KW Desktop 08/06/23 14:20 KW Document 08/13/23 13:13 KW Desktop 08/13/23 13:17 KW 08/06/23 08/13/23 14:08 13:13 WC - Today's Visit Information Type of service Follow-up Visit Follow-up Visit (Physician/ARTIFICIAL MARBLE WORKER (Physician/ARTIFICIAL MARBLE WORKER ) ) Arrival Mode Ambulatory, Ambulatory, Walker Walker Patient Identification Verified (Name & Yes Yes ) Vital Signs Temperature (97.8 F-99.1 F) 96.9 F L Temperature Source Temporal Pulse Rate (60-100) 67 Pulse Location Monitor Monitor Respiratory Rate (12-18) 18 18 Respiratory rate source Observation Observation Oxygen Delivery Method Room Air Room Air Blood Pressure (90/60-120/80) 149/57 H Blood Pressure Mean (mm Hg) 87 Source Monitor Position Semi-Fowlers Blood Pressure Location Right Arm History Since Last Visit- (Skip if this is Patient's initial visit) Have you changed medications since your No No last visit? Any new allergies or adverse reactions No No Had a fall/change in ADL's that may No No increase risk of falls Signs or symptoms of abuse and/or No No neglect since last visit Have you been in the hospital since your No No last visit? Has dressing in place as prescribed Yes Yes Has compression in place as prescribed Yes No Has offloadiing in place as prescribed N/A N/A Experienced any changes in pain level or No No management Left Footwear Regular Shoe Regular Shoe Right Footwear Regular Shoe Regular Shoe Pain Scale: 0-10 Numeric Is Patient Pain Free? Yes Yes STEVE - Nurse 1 - General Ulcer Measurement Start: 08/06/23 14:08 Freq: Status: Active Protocol: Activity Type Activity Date Activity User E-sign Co-sign Detail Recorded Client Recorded Date Recorded By Document 08/06/23 14:08 KW Desktop 08/06/23 14:20 KW Document 08/13/23 13:13 KW Desktop 08/13/23 13:17 KW 08/06/23 08/13/23 14:08 13:13 Wound Center Nurse 1 #3 R Lutz -Current Size (cm) - Length 0.1 -Current Size (cm) - Width 0.1 -Current Size (cm) - Depth 0.1 -Total Square Cm 0.01 -Temperature (Adelina-wound Skin No Abnormality Appearance) (Pt Warm) -Ulcer Cleansing Soap and Water -Anesthetic Used 5% Lidocaine Gel -Wound Comment(s) wound was scapped #4 R Med LE/ Trauma -Combined with (Name of Wound-Exactly 1.5 as it is documented) -Current Size (cm) - Length 0.1 0.5 -Current Size (cm) - Width 0.1 0.1 -Current Size (cm) - Depth 0.1 -Total Square Cm 0.01 0.05 -Exudate Amt Small -Exudate Type Serosanguineous -Wound Margin Distinct, Outline Attached -Granulation Amt Large (67-100%) -Granulation Quality Red -Texture (Adelina-wound Skin Appearance) Assessed -Moisture (Adelina-wound Skin Appearance) Assessed -Color (Adelina-wound Skin Appearance) Assessed -Temperature (Adelina-wound Skin No Abnormality Appearance) (Pt Warm) -Ulcer Cleansing Soap and Water Rinsed/ Irrigated with Saline -Anesthetic Used 5% Lidocaine 5% Lidocaine Gel Gel -Wound Comment(s) wound was scabbed over. Right Calf (cm) 35.5 35.5 Right Ankle (cm) 22.3 22.5 WC - Nurse 2 - General Ulcer CM Notes Start: 08/06/23 14:08 Freq: Status: Active Protocol: Activity Type Activity Date Activity User E-sign Co-sign Detail Recorded Client Recorded Date Recorded By Document 08/06/23 14:31 JF Laptop 08/06/23 14:39 08/06/23 14:31 Wound Center Nurse 2 #3 R Lutz -Correct Patient No -Correct Side, Site, Position No -Correct Procedure No -Procedure Performed No -Post Debridement (cm) - Length 0 -Post Debridement (cm) - Width 0 -Post Debridement (cm) - Depth 0 -Total Square (Post) (cm) 0 -Area of Debridement (cm) - Length 0 -Area of Debridement (cm) - Width 0 -Total Square (Area) (cm) 0 -Wound/Ulcer Outcome Healed- Epithelialized #4 R Med LE/ Trauma -Correct Patient Yes -Correct Side, Site, Position Yes -Correct Procedure Yes -Procedure Performed Yes -Type of Procedure Debridement -Clinical Debridement Subcutaneous -Tissue Removed Subcutaneous -Post Debridement (cm) - Length 2.0 -Post Debridement (cm) - Width 0.7 -Post Debridement (cm) - Depth 0.2 -Total Square (Post) (cm) 1.40 -Area of Debridement (cm) - Length 2.0 -Area of Debridement (cm) - Width 0.7 -Total Square (Area) (cm) 1.40 -Tunneling No -Undermining/Tunneling No -Circular Undermining No -Wound/Ulcer Outcome Not Healed -Ulcer Cleansing Rinsed/ Irrigated with Saline -Foul Odor after Cleansing No -Bioengineered Tissue Yes -Type of Bioengineered Tissue Epifix 18mm Disc -Expiration Date 03/30/28 -Product Lot Number [id number] -Percent Used 100 -Bleeding Controlled with Pressure -Treatment Response Procedure Tolerated Well -Offloading No -Debridement - Subq, 1st 20sq cm No -Apply Skin Sub - 1st 25 sq cm - Legs 1 -Epifix 18mm Disc 3 Pain Scale: 0-10 Numeric Is Patient Pain Free? Yes WC - Nurse 3 - General Ulcer D/C NN Start: 08/06/23 14:08 Freq: Status: Active Protocol: Activity Type Activity Date Activity User E-sign Co-sign Detail Recorded Client Recorded Date Recorded By Document 08/06/23 14:45 DL Desktop 08/06/23 14:48 DL Edit Result 08/06/23 14:45 DL (1) Desktop 08/06/23 14:50 DL (1) Left - Tubular Bandage Double Layer => - Size E ($) 2 => Notes: => Pt refused Tubigrip to LLE Today 08/06/23 14:45 Wound Care Center Nurse 3 #4 R Med LE/ Trauma -Ulcer Cleansing Not Cleansed -Foul Odor after Cleansing No -Primary Dressing Applied Mepilex Border -Other Dressing epifix -Mepilex Border 1 Right -Tubular Bandage Double Layer -Size of Tubigrip Used Size E -Size E ($) 2 Left -Size of Tubigrip Used Size E Treatment Response Procedure Tolerated Well Pain Scale: 0-10 Numeric Is Patient Pain Free? Yes WC - Visit Discharge Discharge Condition Stable Ambulatory Status Ambulatory Transportation Private Auto Notes: Pt refused Tubigrip to [facility] Today Facility Type Home Health Orders Sent Yes Assessment/Plan Assessment/Plan (1) Non-pressure chronic ulcer of unspecified part of right lower leg with fat layer exposed: CODE(S): L97.912 - Non-pressure chronic ulcer of unspecified part of right lower leg with fat layer exposed PLAN: Patient was examined and evaluated. All findings were discussed with the patient. All questions were answered to the patient's satisfaction. Excisional debridement with 5 mm dermal curette down to and including subcutaneous tissue, to the right proximal medial leg ulceration without incident. Predebridement measurement is sanguinous crust. Post debrdiement measurement is 1.9 x 0.8 x 0.1 cm. EpiFix 18 mm disc was applied to the right proximal full-thickness ulceration with 100% use. Fifth application. The graft site was free and clear of any infection. The wound/skin graft substitute was dressed with nonadherent bandage secured in place with Steri-Strips followed by bolster dressing as well as a double layer Tubigrip. Follow-up at the wound care center with Dr. Sampson in 1 week. (2) Edema: CODE(S): R60.9 - Edema, unspecified QUALIFIERS: Edema type: generalized Qualified Code(s): R60.1 - Generalized edema
[2023-08-20 13:14] VITALS: BP 144/63; PULSE 74; RESP 18; TEMP 36.3
--- NOTE | 2023-08-20 13:44 | PCM.WC.PN ---
History of Present Illness Date of Service: 08/20/23 Chief Complaint: Left foot ulcerations History of Wound: Chronic wounds left foot self treatment as well as SNF treatment Subjective Subjective Mr. Arreola is a 82-year-old male presenting for follow-up of bilateral leg ulcerations. Patient states that home health care has come to his home for dressing changes Friday. He presents today to the wound care center for follow-up evaluation. He denies any recent falls. He denies constitutional symptoms. No other pedal complaints at this time. Objective Data Objective Data Vital Signs: Vital Signs Temp Pulse Resp BP Pulse Ox O2 Del Method O2 Flow Rate 97.3 F L 74 18 144/63 H 100 Room Air 2 08/20/23 13:14 08/20/23 13:14 08/20/23 13:14 08/20/23 13:14 07/31/23 00:13 08/20/23 13:14 07/31/23 00:13 Oxygen Flow Rate (L/min) 2 Oxygen Delivery Method Room Air Physical Exam Narrative Vascular: DP and PT pulses are faintly palpable. CFT is delayed. Evidence of hemosiderin deposits appreciated bilateral lower extremity. Skin temperature great is warm to warm from proximal ankle to distal digit. Nonpitting edema appreciated to the right lower extremity. No focal increase noted. Neurological: Light touch intact. Epicritic sensation is diminished. Patient does not respond to painful stimuli. Dermatological: Full-thickness ulceration to the right anterior medial leg measures 1.5 x 1.6 x 0.1 cm. All wounds are under percent granular nature. Evidence of diffuse excoriations appreciated to the proximal anterior right leg secondary to dressing. No sign of infection. Excisional debridement with 5 mm dermal curette down to and including subcutaneous tissue, to the right proximal medial leg ulceration without incident. Predebridement measurement is sanguinous crust. Post debrdiement measurement is 1.5 x 1.6 x 0.1 cm. EpiFix 18 mm disc was applied to the right proximal full-thickness ulceration with 100% use. Sixth application. The graft site was free and clear of any infection. The wound/skin graft substitute was dressed with nonadherent bandage secured in place with Steri-Strips followed by bolster dressing as well as a double layer Tubigrip. Musculoskeletal: No pain on palpation or with sharp debridement to both ulcerations to the left foot. No pain with calf compression. Debridement Note Debridement Note Debridement Free Text: Excisional debridement with 5 mm dermal curette down to and including subcutaneous tissue, to the right proximal medial leg ulceration without incident. Predebridement measurement is sanguinous crust. Post debrdiement measurement is 1.5 x 1.6 x 0.1 cm. EpiFix 18 mm disc was applied to the right proximal full-thickness ulceration with 100% use. Sixth application. The graft site was free and clear of any infection. The wound/skin graft substitute was dressed with nonadherent bandage secured in place with Steri-Strips followed by bolster dressing as well as a double layer Tubigrip. Post-Debridement Measurements and Additional Note: Post-Debridement Measurements/Treatment - Nurse 1 - General Ulcer Assessment Start: 08/06/23 14:08 Freq: Status: Active Protocol: WC.[email or web address] Activity Type Activity Date Activity User E-sign Co-sign Detail Recorded Client Recorded Date Recorded By Document 08/06/23 14:08 KW Desktop 08/06/23 14:20 KW Document 08/13/23 13:13 KW Desktop 08/13/23 13:17 KW Document 08/20/23 13:14 GM Desktop 08/20/23 13:18 GM 08/06/23 08/13/23 08/20/23 14:08 13:13 13:14 - Today's Visit Information Type of service Follow-up Visit Follow-up Visit Follow-up Visit (Physician/DIRECTOR GEOTHERMAL OPERATIONS (Physician/DIRECTOR GEOTHERMAL OPERATIONS (Physician/DIRECTOR GEOTHERMAL OPERATIONS ) ) ) Arrival Mode Ambulatory, Ambulatory, Ambulatory, Walker Walker Walker Transfer Assistance None Patient Identification Verified (Name & Yes Yes Yes ) Vital Signs Temperature (97.8 F-99.1 F) 96.9 F L 97.3 F L Temperature Source Temporal Temporal Pulse Rate (60-100) 67 74 Pulse Location Monitor Monitor Monitor Respiratory Rate (12-18) 18 18 18 Respiratory rate source Observation Observation Observation Oxygen Delivery Method Room Air Room Air Room Air Blood Pressure (90/60-120/80) 149/57 H 144/63 H Blood Pressure Mean (mm Hg) 87 90 Source Monitor Monitor Position Semi-Fowlers Sitting Blood Pressure Location Right Arm Left Arm History Since Last Visit- (Skip if this is Patient's initial visit) Have you changed medications since your No No No last visit? Any new allergies or adverse reactions No No No Had a fall/change in ADL's that may No No No increase risk of falls Signs or symptoms of abuse and/or No No No neglect since last visit Have you been in the hospital since your No No No last visit? Has dressing in place as prescribed Yes Yes Yes Has compression in place as prescribed Yes No No Has offloadiing in place as prescribed N/A N/A N/A Experienced any changes in pain level or No No No management Left Footwear Regular Shoe Regular Shoe Regular Shoe Right Footwear Regular Shoe Regular Shoe Regular Shoe Pain Scale: 0-10 Numeric Is Patient Pain Free? Yes Yes Yes WC - Nurse 1 - General Ulcer Measurement Start: 08/06/23 14:08 Freq: Status: Active Protocol: Activity Type Activity Date Activity User E-sign Co-sign Detail Recorded Client Recorded Date Recorded By Document 08/06/23 14:08 KW Desktop 08/06/23 14:20 KW Document 08/13/23 13:13 KW Desktop 08/13/23 13:17 KW Document 08/20/23 13:14 GM Desktop 08/20/23 13:18 GM 08/06/23 08/13/23 08/20/23 14:08 13:13 13:14 Wound Center Nurse 1 #3 R Lutz -Current Size (cm) - Length 0.1 -Current Size (cm) - Width 0.1 -Current Size (cm) - Depth 0.1 -Total Square Cm 0.01 -Temperature (Adelina-wound Skin No Abnormality Appearance) (Pt Warm) -Ulcer Cleansing Soap and Water -Anesthetic Used 5% Lidocaine Gel -Wound Comment(s) wound was scapped #6 R lateral leg -Current Size (cm) - Length 2 -Current Size (cm) - Width 0.5 -Current Size (cm) - Depth 0.1 -Total Square Cm 1.0 -Date of Last Picture (Recall this 08/20/23 field) -Photo Taken Yes -Tunneling No -Undermining/Tunneling No -Circular Undermining No -Exudate Amt Small -Exudate Type Sanguineous -Wound Margin Distinct, Outline Attached -Granulation Amt Medium (34-66%) -Slough/Fibrin No -Necrosis Amt None Present (0 %) -Texture (Adelina-wound Skin Appearance) Assessed -Moisture (Adelina-wound Skin Appearance) Assessed -Color (Adelina-wound Skin Appearance) Assessed -Temperature (Adelina-wound Skin No Abnormality Appearance) (Pt Warm) -Ulcer Cleansing Soap and Water -Foul Odor after Cleansing No #4 R Med LE/ Trauma -Combined with (Name of Wound-Exactly 1.5 as it is documented) -Current Size (cm) - Length 0.1 0.5 7.0 -Current Size (cm) - Width 0.1 0.1 7.5 -Current Size (cm) - Depth 0.1 0.1 -Total Square Cm 0.01 0.05 52.50 -Photo Taken No -Epithelialization Small 1-33% -Tunneling No -Undermining/Tunneling No -Circular Undermining No -Exudate Amt Small Large -Exudate Type Serosanguineous Sanguineous -Wound Margin Distinct, Distinct, Outline Outline Attached Attached -Granulation Amt Large (67-100%) Medium (34-66%) -Granulation Quality Red Red -Necrosis Amt None Present (0 %) -Structure Exposed N/A -Texture (Adelina-wound Skin Appearance) Assessed Assessed -Moisture (Adleina-wound Skin Appearance) Assessed Assessed -Color (Adelina-wound Skin Appearance) Assessed Assessed -Temperature (Adelina-wound Skin No Abnormality No Abnormality Appearance) (Pt Warm) (Pt Warm) -Ulcer Cleansing Soap and Water Rinsed/ Soap and Water Irrigated with Saline -Foul Odor after Cleansing No -Anesthetic Used 5% Lidocaine 5% Lidocaine 4% Lidocaine Gel Gel Solution -Wound Comment(s) wound was scabbed over. Right Calf (cm) 35.5 35.5 Right Ankle (cm) 22.3 22.5 WC - Nurse 2 - General Ulcer CM Notes Start: 08/06/23 14:08 Freq: Status: Active Protocol: Activity Type Activity Date Activity User E-sign Co-sign Detail Recorded Client Recorded Date Recorded By Document 08/06/23 14:31 Laptop 08/06/23 14:39 Document 08/13/23 13:25 Laptop 08/13/23 13:27 08/06/23 08/13/23 14:31 13:25 Wound Center Nurse 2 #3 R Lutz -Correct Patient No -Correct Side, Site, Position No -Correct Procedure No -Procedure Performed No -Post Debridement (cm) - Length 0 -Post Debridement (cm) - Width 0 -Post Debridement (cm) - Depth 0 -Total Square (Post) (cm) 0 -Area of Debridement (cm) - Length 0 -Area of Debridement (cm) - Width 0 -Total Square (Area) (cm) 0 -Wound/Ulcer Outcome Healed- Epithelialized #4 R Med LE/ Trauma -Time 13:25 -Correct Patient Yes Yes -Correct Side, Site, Position Yes Yes -Correct Procedure Yes Yes -Procedure Performed Yes Yes -Type of Procedure Debridement Debridement -Clinical Debridement Subcutaneous Subcutaneous -Tissue Removed Subcutaneous Subcutaneous -Post Debridement (cm) - Length 2.0 1.9 -Post Debridement (cm) - Width 0.7 0.8 -Post Debridement (cm) - Depth 0.2 0.1 -Total Square (Post) (cm) 1.40 1.52 -Area of Debridement (cm) - Length 2.0 1.9 -Area of Debridement (cm) - Width 0.7 0.8 -Total Square (Area) (cm) 1.40 1.52 -Tunneling No No -Undermining/Tunneling No No -Circular Undermining No No -Wound/Ulcer Outcome Not Healed Not Healed -Ulcer Cleansing Rinsed/ Rinsed/ Irrigated with Irrigated with Saline Saline -Foul Odor after Cleansing No No -Bioengineered Tissue Yes Yes -Type of Bioengineered Tissue Epifix 18mm Epifix 18mm Disc Disc -Expiration Date 03/30/28 03/30/28 -Product Lot Number [id number] -Percent Used 100 100 -Lot number of Saline Used [id number] -Bleeding Controlled with Pressure Silver Nitrate -Treatment Response Procedure Procedure Tolerated Well Tolerated Well -Offloading No No -Debridement - Subq, 1st 20sq cm No No -Apply Skin Sub - 1st 25 sq cm - Legs 1 1 -Epifix 18mm Disc 3 3 Pain Scale: 0-10 Numeric Is Patient Pain Free? Yes Yes WC - Nurse 3 - General Ulcer D/C NN Start: 08/06/23 14:08 Freq: Status: Active Protocol: Activity Type Activity Date Activity User E-sign Co-sign Detail Recorded Client Recorded Date Recorded By Document 08/06/23 14:45 DL Desktop 08/06/23 14:48 DL Edit Result 08/06/23 14:45 DL (1) Desktop 08/06/23 14:50 DL Document 08/13/23 13:32 KW Desktop 08/13/23 13:33 KW (1) Left - Tubular Bandage Double Layer => - Size E ($) 2 => Notes: => Pt refused Tubigrip to LLE Today 08/06/23 08/13/23 14:45 13:32 Wound Care Center Nurse 3 #4 R Med LE/ Trauma -Ulcer Cleansing Not Cleansed -Foul Odor after Cleansing No -Primary Dressing Applied Mepilex Border Mepilex Border -Other Dressing epifix -Mepilex Border 1 1 Right -Tubular Bandage Double Layer Double Layer -Size of Tubigrip Used Size E Size D -Size D ($) 2 -Size E ($) 2 Left -Size of Tubigrip Used Size E Treatment Response Procedure Tolerated Well Pain Scale: 0-10 Numeric Is Patient Pain Free? Yes Yes WC - Visit Discharge Discharge Condition Stable Stable Ambulatory Status Ambulatory Ambulatory, Walker Transportation Private Auto Private Auto Medication Reconcilliation completed & No provided to patient/care provider Clinical Summary of Care Provided Yes Notes: Pt refused Tubigrip to E Today Facility Type Home Health Orders Sent Yes Assessment/Plan Assessment/Plan (1) Non-pressure chronic ulcer of unspecified part of right lower leg with fat layer exposed: CODE(S): L97.912 - Non-pressure chronic ulcer of unspecified part of right lower leg with fat layer exposed PLAN: Patient was examined and evaluated. All findings were discussed with the patient. All questions were answered to the patient's satisfaction. Excisional debridement with 5 mm dermal curette down to and including subcutaneous tissue, to the right proximal medial leg ulceration without incident. Predebridement measurement is sanguinous crust. Post debrdiement measurement is 1.5 x 1.6 x 0.1 cm. EpiFix 18 mm disc was applied to the right proximal full-thickness ulceration with 100% use. Sixth application. The graft site was free and clear of any infection. The wound/skin graft substitute was dressed with nonadherent bandage secured in place with Steri-Strips followed by bolster dressing as well as a double layer Tubigrip. Patient shows evidence of dermatitis appreciated to the right proximal leg secondary to dressing. A different dressing will be placed to the patient's right leg. There is no reason to prescribe any hydrocortisone cream or topical medication as this will heal uneventfully in the next upcoming week. Patient was understanding what was explained to him. Follow-up at the wound care center with Dr. Sampson in 1 week. (2) Multiple excoriations: CODE(S): T07.XXXA - Unspecified multiple injuries, initial encounter PLAN: The patient's right lower extremity excoriations are stable with no sign of infection. (3) Edema: CODE(S): R60.9 - Edema, unspecified QUALIFIERS: Edema type: generalized Qualified Code(s): R60.1 - Generalized edema (4) Dermatitis: CODE(S): L30.9 - Dermatitis, unspecified PLAN: Offending agent, offloading foam was removed from the patient's right lower extremity would not be replaced.
[2023-08-27 13:01] VITALS: BP 142/61; PULSE 75; RESP 18; TEMP 36.3
--- NOTE | 2023-08-27 13:23 | PCM.WC.PN ---
History of Present Illness Date of Service: 08/27/23 Chief Complaint: Left foot ulcerations History of Wound: Chronic wounds left foot self treatment as well as SNF treatment Subjective Subjective Mr. Arreola is a 82-year-old male presenting for follow-up of bilateral leg ulcerations. Patient states that home health care has come to his home for dressing changes Friday. He presents today to the wound care center for follow-up evaluation. He denies any recent falls. He denies constitutional symptoms. No other pedal complaints at this time. Objective Data Objective Data Vital Signs: Vital Signs Temp Pulse Resp BP Pulse Ox O2 Del Method O2 Flow Rate 97.3 F L 75 18 142/61 H 100 Room Air 2 08/27/23 13:01 08/27/23 13:01 08/27/23 13:01 08/27/23 13:01 07/31/23 00:13 08/27/23 13:01 07/31/23 00:13 Oxygen Flow Rate (L/min) 2 Oxygen Delivery Method Room Air Physical Exam Narrative Vascular: DP and PT pulses are faintly palpable. CFT is delayed. Evidence of hemosiderin deposits appreciated bilateral lower extremity. Skin temperature great is warm to warm from proximal ankle to distal digit. Nonpitting edema appreciated to the right lower extremity. No focal increase noted. Neurological: Light touch intact. Epicritic sensation is diminished. Patient does not respond to painful stimuli. Dermatological: Full-thickness ulceration to the right anterior medial leg is now healed. Evidence of diffuse excoriations appreciated to the proximal anterior right leg secondary to dressing, improved. No sign of infection. Musculoskeletal: No pain on palpation or with sharp debridement to both ulcerations to the left foot. No pain with calf compression. Debridement Note Debridement Note Post-Debridement Measurements and Additional Note: Post-Debridement Measurements/Treatment STEVE - Nurse 1 - General Ulcer Assessment Start: 08/06/23 14:08 Freq: Status: Active Protocol: GE Activity Type Activity Date Activity User E-sign Co-sign Detail Recorded Client Recorded Date Recorded By Document 08/06/23 14:08 KW Desktop 08/06/23 14:20 KW Document 08/13/23 13:13 KW Desktop 08/13/23 13:17 KW Document 08/20/23 13:14 Desktop 08/20/23 13:18 GM Document 08/27/23 13:01 KW Desktop 08/27/23 13:06 KW 08/06/23 08/13/23 08/20/23 14:08 13:13 13:14 - Today's Visit Information Type of service Follow-up Visit Follow-up Visit Follow-up Visit (Physician/COLOR ROOM ATTENDANT (Physician/COLOR ROOM ATTENDANT (Physician/COLOR ROOM ATTENDANT ) ) ) Arrival Mode Ambulatory, Ambulatory, Ambulatory, Walker Walker Walker Transfer Assistance None Patient Identification Verified (Name & Yes Yes Yes ) Vital Signs Temperature (97.8 F-99.1 F) 96.9 F L 97.3 F L Temperature Source Temporal Temporal Pulse Rate (60-100) 67 74 Pulse Location Monitor Monitor Monitor Respiratory Rate (12-18) 18 18 18 Respiratory rate source Observation Observation Observation Oxygen Delivery Method Room Air Room Air Room Air Blood Pressure (90/60-120/80) 149/57 H 144/63 H Blood Pressure Mean (mm Hg) 87 90 Source Monitor Monitor Position Semi-Fowlers Sitting Blood Pressure Location Right Arm Left Arm History Since Last Visit- (Skip if this is Patient's initial visit) Have you changed medications since your No No No last visit? Any new allergies or adverse reactions No No No Had a fall/change in ADL's that may No No No increase risk of falls Signs or symptoms of abuse and/or No No No neglect since last visit Have you been in the hospital since your No No No last visit? Has dressing in place as prescribed Yes Yes Yes Has compression in place as prescribed Yes No No Has offloadiing in place as prescribed N/A N/A N/A Experienced any changes in pain level or No No No management Left Footwear Regular Shoe Regular Shoe Regular Shoe Right Footwear Regular Shoe Regular Shoe Regular Shoe Pain Scale: 0-10 Numeric Is Patient Pain Free? Yes Yes Yes 08/27/23 13:01 - Today's Visit Information Type of service Follow-up Visit (Physician/COLOR ROOM ATTENDANT ) Arrival Mode Ambulatory, Walker Transfer Assistance Patient Identification Verified (Name & Yes ) Vital Signs Temperature (97.8 F-99.1 F) 97.3 F L Temperature Source Temporal Pulse Rate (60-100) 75 Pulse Location Monitor Respiratory Rate (12-18) 18 Respiratory rate source Observation Oxygen Delivery Method Room Air Blood Pressure (90/60-120/80) 142/61 H Blood Pressure Mean (mm Hg) 88 Source Monitor Position Semi-Fowlers Blood Pressure Location Left Arm History Since Last Visit- (Skip if this is Patient's initial visit) Have you changed medications since your No last visit? Any new allergies or adverse reactions No Had a fall/change in ADL's that may No increase risk of falls Signs or symptoms of abuse and/or No neglect since last visit Have you been in the hospital since your No last visit? Has dressing in place as prescribed Yes Has compression in place as prescribed Yes Has offloadiing in place as prescribed N/A Experienced any changes in pain level or No management Left Footwear Regular Shoe Right Footwear Regular Shoe Pain Scale: 0-10 Numeric Is Patient Pain Free? Yes WC - Nurse 1 - General Ulcer Measurement Start: 08/06/23 14:08 Freq: Status: Active Protocol: Activity Type Activity Date Activity User E-sign Co-sign Detail Recorded Client Recorded Date Recorded By Document 08/06/23 14:08 KW Desktop 08/06/23 14:20 KW Document 08/13/23 13:13 KW Desktop 08/13/23 13:17 KW Document 08/20/23 13:14 GM Desktop 08/20/23 13:18 GM Document 08/27/23 13:01 KW Desktop 08/27/23 13:06 KW 08/06/23 08/13/23 08/20/23 14:08 13:13 13:14 Wound Center Nurse 1 #6 R lateral leg -Current Size (cm) - Length 2 -Current Size (cm) - Width 0.5 -Current Size (cm) - Depth 0.1 -Total Square Cm 1.0 -Date of Last Picture (Recall this 08/20/23 field) -Photo Taken Yes -Tunneling No -Undermining/Tunneling No -Circular Undermining No -Exudate Amt Small -Exudate Type Sanguineous -Wound Margin Distinct, Outline Attached -Granulation Amt Medium (34-66%) -Slough/Fibrin No -Necrosis Amt None Present (0 %) -Texture (Sanjeev-wound Skin Appearance) Assessed -Moisture (Sanjeev-wound Skin Appearance) Assessed -Color (Sanjeev-wound Skin Appearance) Assessed -Temperature (Sanjeev-wound Skin No Abnormality Appearance) (Pt Warm) -Ulcer Cleansing Soap and Water -Foul Odor after Cleansing No #4 R Med LE/ Trauma -Combined with (Name of Wound-Exactly 1.5 as it is documented) -Current Size (cm) - Length 0.1 0.5 7.0 -Current Size (cm) - Width 0.1 0.1 7.5 -Current Size (cm) - Depth 0.1 0.1 -Total Square Cm 0.01 0.05 52.50 -Photo Taken No -Epithelialization Small 1-33% -Tunneling No -Undermining/Tunneling No -Circular Undermining No -Exudate Amt Small Large -Exudate Type Serosanguineous Sanguineous -Wound Margin Distinct, Distinct, Outline Outline Attached Attached -Granulation Amt Large (67-100%) Medium (34-66%) -Granulation Quality Red Red -Necrosis Amt None Present (0 %) -Structure Exposed N/A -Texture (Sanjeev-wound Skin Appearance) Assessed Assessed -Moisture (Sanjeev-wound Skin Appearance) Assessed Assessed -Color (Sanjeev-wound Skin Appearance) Assessed Assessed -Temperature (Sanjeev-wound Skin No Abnormality No Abnormality Appearance) (Pt Warm) (Pt Warm) -Ulcer Cleansing Soap and Water Rinsed/ Soap and Water Irrigated with Saline -Foul Odor after Cleansing No -Anesthetic Used 5% Lidocaine 5% Lidocaine 4% Lidocaine Gel Gel Solution -Wound Comment(s) wound was scabbed over. #3 R Lutz -Current Size (cm) - Length 0.1 -Current Size (cm) - Width 0.1 -Current Size (cm) - Depth 0.1 -Total Square Cm 0.01 -Temperature (Sanjeev-wound Skin No Abnormality Appearance) (Pt Warm) -Ulcer Cleansing Soap and Water -Anesthetic Used 5% Lidocaine Gel -Wound Comment(s) wound was scapped Right Calf (cm) 35.5 35.5 Right Ankle (cm) 22.3 22.5 08/27/23 13:01 Wound Center Nurse 1 #6 R lateral leg -Current Size (cm) - Length -Current Size (cm) - Width -Current Size (cm) - Depth -Total Square Cm -Date of Last Picture (Recall this field) -Photo Taken -Tunneling -Undermining/Tunneling -Circular Undermining -Exudate Amt -Exudate Type -Wound Margin -Granulation Amt -Slough/Fibrin -Necrosis Amt -Texture (Sanjeev-wound Skin Appearance) -Moisture (Sanjeev-wound Skin Appearance) -Color (Sanjeev-wound Skin Appearance) -Temperature (Sanjeev-wound Skin Appearance) -Ulcer Cleansing Soap and Water -Foul Odor after Cleansing #4 R Med LE/ Trauma -Combined with (Name of Wound-Exactly as it is documented) -Current Size (cm) - Length -Current Size (cm) - Width -Current Size (cm) - Depth -Total Square Cm -Photo Taken -Epithelialization -Tunneling -Undermining/Tunneling -Circular Undermining -Exudate Amt -Exudate Type -Wound Margin -Granulation Amt -Granulation Quality -Necrosis Amt -Structure Exposed -Texture (Sanjeev-wound Skin Appearance) -Moisture (Sanjeev-wound Skin Appearance) -Color (Sanjeev-wound Skin Appearance) -Temperature (Sanjeev-wound Skin Appearance) -Ulcer Cleansing Soap and Water -Foul Odor after Cleansing -Anesthetic Used -Wound Comment(s) #3 R Lutz -Current Size (cm) - Length -Current Size (cm) - Width -Current Size (cm) - Depth -Total Square Cm -Temperature (Sanjeev-wound Skin Appearance) -Ulcer Cleansing -Anesthetic Used -Wound Comment(s) Right Calf (cm) 32.5 Right Ankle (cm) 22.1 WC - Nurse 2 - General Ulcer CM Notes Start: 08/06/23 14:08 Freq: Status: Active Protocol: Activity Type Activity Date Activity User E-sign Co-sign Detail Recorded Client Recorded Date Recorded By Document 08/06/23 14:31 Laptop 08/06/23 14:39 Document 08/13/23 13:25 Laptop 08/13/23 13:27 Document 08/20/23 13:41 Laptop 08/20/23 13:46 Edit Result 08/20/23 13:41 (1) [id number] 08/20/23 16:26 Document 08/27/23 13:12 Laptop 08/27/23 13:14 (1) #6 R lateral leg - Other Pressure Reduction => excoriation noted => to sanjeev-ulcer => which was => addressed with => adaptic. 08/06/23 08/13/23 08/20/23 14:31 13:25 13:41 Wound Center Nurse 2 #6 R lateral leg -Time 13:41 -Correct Patient No -Correct Side, Site, Position No -Correct Procedure No -Procedure Performed No -Tissue Removed -Post Debridement (cm) - Length -Post Debridement (cm) - Width -Post Debridement (cm) - Depth -Total Square (Post) (cm) -Area of Debridement (cm) - Length -Area of Debridement (cm) - Width -Total Square (Area) (cm) -Tunneling No -Undermining/Tunneling No -Circular Undermining No -Wound/Ulcer Outcome Not Healed -Ulcer Cleansing Rinsed/ Irrigated with Saline -Foul Odor after Cleansing No -Bioengineered Tissue No -Bleeding Controlled with Pressure -Treatment Response Procedure Tolerated Well -Offloading No -Other Pressure Reduction excoriation noted to sanjeev- ulcer which was addressed with adaptic. -Debridement - Subq, 1st 20sq cm No #4 R Med LE/ Trauma -Time 13:25 13:44 -Correct Patient Yes Yes Yes -Correct Side, Site, Position Yes Yes Yes -Correct Procedure Yes Yes Yes -Procedure Performed Yes Yes Yes -Type of Procedure Debridement Debridement Debridement -Clinical Debridement Subcutaneous Subcutaneous Subcutaneous -Tissue Removed Subcutaneous Subcutaneous Subcutaneous -Post Debridement (cm) - Length 2.0 1.9 1.5 -Post Debridement (cm) - Width 0.7 0.8 1.6 -Post Debridement (cm) - Depth 0.2 0.1 0.1 -Total Square (Post) (cm) 1.40 1.52 2.40 -Area of Debridement (cm) - Length 2.0 1.9 1.5 -Area of Debridement (cm) - Width 0.7 0.8 1.6 -Total Square (Area) (cm) 1.40 1.52 2.40 -Tunneling No No No -Undermining/Tunneling No No No -Circular Undermining No No No -Wound/Ulcer Outcome Not Healed Not Healed Not Healed -Ulcer Cleansing Rinsed/ Rinsed/ Rinsed/ Irrigated with Irrigated with Irrigated with Saline Saline Saline -Foul Odor after Cleansing No No No -Bioengineered Tissue Yes Yes Yes -Type of Bioengineered Tissue Epifix 18mm Epifix 18mm Epifix 18mm Disc Disc Disc -Expiration Date 03/30/28 03/30/28 03/30/28 -Product Lot Number [id number] -Percent Used 100 100 100 -Lot number of Saline Used [id number] -Bleeding Controlled with Pressure Silver Nitrate Pressure -Treatment Response Procedure Procedure Procedure Tolerated Well Tolerated Well Tolerated Well -Offloading No No No -Debridement - Subq, 1st 20sq cm No No No -Apply Skin Sub - 1st 25 sq cm - Legs 1 1 1 -Epifix 18mm Disc 3 3 3 #3 R Lutz -Correct Patient No -Correct Side, Site, Position No -Correct Procedure No -Procedure Performed No -Post Debridement (cm) - Length 0 -Post Debridement (cm) - Width 0 -Post Debridement (cm) - Depth 0 -Total Square (Post) (cm) 0 -Area of Debridement (cm) - Length 0 -Area of Debridement (cm) - Width 0 -Total Square (Area) (cm) 0 -Wound/Ulcer Outcome Healed- Epithelialized Pain Scale: 0-10 Numeric Is Patient Pain Free? Yes Yes Yes 08/27/23 13:12 Wound Center Nurse 2 #6 R lateral leg -Time -Correct Patient No -Correct Side, Site, Position No -Correct Procedure No -Procedure Performed No -Tissue Removed Fascia -Post Debridement (cm) - Length 0 -Post Debridement (cm) - Width 0 -Post Debridement (cm) - Depth 0 -Total Square (Post) (cm) 0 -Area of Debridement (cm) - Length 0 -Area of Debridement (cm) - Width 0 -Total Square (Area) (cm) 0 -Tunneling -Undermining/Tunneling -Circular Undermining -Wound/Ulcer Outcome Healed- Epithelialized -Ulcer Cleansing -Foul Odor after Cleansing -Bioengineered Tissue -Bleeding Controlled with -Treatment Response -Offloading -Other Pressure Reduction -Debridement - Subq, 1st 20sq cm #4 R Med LE/ Trauma -Time -Correct Patient No -Correct Side, Site, Position No -Correct Procedure No -Procedure Performed No -Type of Procedure -Clinical Debridement -Tissue Removed -Post Debridement (cm) - Length 0 -Post Debridement (cm) - Width 0 -Post Debridement (cm) - Depth 0 -Total Square (Post) (cm) 0 -Area of Debridement (cm) - Length 0 -Area of Debridement (cm) - Width 0 -Total Square (Area) (cm) 0 -Tunneling -Undermining/Tunneling -Circular Undermining -Wound/Ulcer Outcome Healed- Epithelialized -Ulcer Cleansing -Foul Odor after Cleansing -Bioengineered Tissue -Type of Bioengineered Tissue -Expiration Date -Product Lot Number -Percent Used -Lot number of Saline Used -Bleeding Controlled with -Treatment Response -Offloading -Debridement - Subq, 1st 20sq cm -Apply Skin Sub - 1st 25 sq cm - Legs -Epifix 18mm Disc #3 R Lutz -Correct Patient -Correct Side, Site, Position -Correct Procedure -Procedure Performed -Post Debridement (cm) - Length -Post Debridement (cm) - Width -Post Debridement (cm) - Depth -Total Square (Post) (cm) -Area of Debridement (cm) - Length -Area of Debridement (cm) - Width -Total Square (Area) (cm) -Wound/Ulcer Outcome Pain Scale: 0-10 Numeric Is Patient Pain Free? Yes WC - Nurse 3 - General Ulcer D/C NN Start: 08/06/23 14:08 Freq: Status: Active Protocol: Activity Type Activity Date Activity User E-sign Co-sign Detail Recorded Client Recorded Date Recorded By Document 08/06/23 14:45 DL Desktop 08/06/23 14:48 DL Edit Result 08/06/23 14:45 DL (1) Desktop 08/06/23 14:50 DL Document 08/13/23 13:32 KW Desktop 08/13/23 13:33 KW Document 08/20/23 14:02 GM Desktop 08/20/23 14:03 GM (1) Left - Tubular Bandage Double Layer => - Size E ($) 2 => Notes: => Pt refused Tubigrip to LLE Today 08/06/23 08/13/23 08/20/23 14:45 13:32 14:02 Wound Care Center Nurse 3 #6 R lateral leg -Ulcer Cleansing Not Cleansed -Foul Odor after Cleansing No -Primary Dressing Covered/Secured with Dry Gauze, Secured with Tape #4 R Med LE/ Trauma -Ulcer Cleansing Not Cleansed Not Cleansed -Foul Odor after Cleansing No No -Primary Dressing Applied Mepilex Border Mepilex Border NonAdherent Contact Layer -Other Dressing epifix -Primary Dressing Covered/Secured with Dry Gauze & Roll Gauze, Secured with Tape -Mepilex Border 1 1 Right -Lotion applied to leg before No compression wrap -Tubular Bandage Double Layer Double Layer Double Layer -Size of Tubigrip Used Size E Size D Size D -Size D ($) 2 2 -Size E ($) 2 Left -Lotion applied to leg before No compression wrap -Tubular Bandage Double Layer -Size of Tubigrip Used Size E Size D -Size D ($) 2 Treatment Response Procedure Tolerated Well Pain Scale: 0-10 Numeric Is Patient Pain Free? Yes Yes Yes Teaching: Wound Center Dressing Your Wound -Person Taught Patient -Teaching Method Discussion, Demonstration -Response to teaching Verbalize understanding WC - Visit Discharge Discharge Condition Stable Stable Stable Ambulatory Status Ambulatory Ambulatory, Ambulatory, Walker Walker Transportation Private Auto Private Auto Private Auto Medication Reconcilliation completed & No Yes provided to patient/care provider Clinical Summary of Care Provided Yes Yes Notes: Pt refused Tubigrip to LLE Today Facility Type Home Health Orders Sent Yes Assessment/Plan Assessment/Plan (1) Non-pressure chronic ulcer of unspecified part of right lower leg with fat layer exposed: CODE(S): L97.912 - Non-pressure chronic ulcer of unspecified part of right lower leg with fat layer exposed PLAN: Patient was examined and evaluated. All findings were discussed with the patient. All questions were answered to the patient's satisfaction. Patient's right proximal full-thickness ulceration is now healed. Educated the patient to continue to check his bilateral lower extremity twice a day and apply lotion to keep his skin nice and supple. Patient was understanding of this. The proximal right leg healed ulceration was dressed with Adaptic dry sterile dressing and a single-layer Tubigrip. Patient was given the okay to shower. Follow-up at the wound care center with Dr. Sampson in 1 week. (2) Multiple excoriations: CODE(S): T07.XXXA - Unspecified multiple injuries, initial encounter PLAN: The patient's right lower extremity excoriations have healed. (3) Edema: CODE(S): R60.9 - Edema, unspecified QUALIFIERS: Edema type: generalized Qualified Code(s): R60.1 - Generalized edema (4) Dermatitis: CODE(S): L30.9 - Dermatitis, unspecified PLAN: Offending agent, offloading foam was removed from the patient's right lower extremity would not be replaced.
== END 2023-08-28 23:59 | disposition home or self-care (01) ==
LOC: WC 13:00
PROVIDERS: PCP Family Medicine; Referring Provider Internal Medicine; Visit Provider Podiatrist Foot & Ankle Surgery
DX: L97.812 Non-pressure chronic ulcer of other part of right lower leg with fat layer exposed (principal); R60.1 Generalized edema; L30.9 Dermatitis, unspecified; T07.XXXA Unspecified multiple injuries, initial encounter; X58.XXXA Exposure to other specified factors, initial encounter
CPT/HCPCS: 15271; 99213; Q4186; G0463

== ENCOUNTER 2023-09-03 09:19 | Outpatient (CLI) | payer MEDICARE, OTHER, SELFPAY ==
--- NOTE | 2023-09-03 09:20 | US_ITS ---
STUDY: ABDOMINAL ULTRASOUND REASON FOR EXAM: Male, 83 years old. FOSS . Pancytopenia. TECHNIQUE: Transabdominal ultrasound was performed with real-time and static guzman scale imaging. TECHNICAL QUALITY: Adequate. COMPARISON: None. FINDINGS: Liver: The liver measures 15.1 cm. There is normal echogenicity of the liver. The bile ducts are within normal limits. There is hepatic color flow. The direction of portal flow is hepatopetal. There is no demonstrated mass lesion. Gallbladder: Normal distended gallbladder. The gallbladder wall measures 1.4 mm. There is a negative sonographic Rao''s sign. There is no pericholecystic fluid. There are no gallstones. Common Bile Duct (C.B.D.): The common bile duct is mildly dilated and measures 9.4 mm. Pancreas: Normal size of the head, body and tail of the pancreas. There is normal echogenicity of the pancreas. There is no demonstrated pancreatic mass or cyst. Spleen: Normal size of the spleen. The spleen measures 9.2 cm x 5.1 cm x 4.8 cm. Right Kidney: Normal size of the right kidney. The right kidney measures 11.5 cm x 4.9 cmx 5.2 cm. Normal renal cortex. The right cortex measures 1.3 cm. Multiple cysts are seen. The largest cyst in the right kidney measures 5 cm x 5.5 cm by 3.9 cm. There is no right hydronephrosis. Left Kidney: Normal size of the left kidney. The left kidney measures 12.8 cm x 5.9 cm x 6.1 cm. Normal renal cortex. The left cortex measures 1.2 cm. Multiple renal cysts are seen. The largest measures 3.6 times by 4.3 centimeters by 4.3 cm. There is no left hydronephrosis. Aorta: Unremarkable I.V.C.: The IVC is patent. There is no ascites. IMPRESSION: Multiple bilateral renal cysts. Electronically Signed: Apolinar Rosen MD at 13:02 EDT , STUDY: ABDOMINAL ULTRASOUND - ELASTOGRAPHY REASON FOR VISIT: Male, 83 years old. Pancytopenia.-. FOSS TECHNIQUE: Liver stiffness measurements were obtained on a [employer] 85 ultrasound machine using a CA 1-7 probe following the SRU guidelines. 3 measurements were obtained using a 2-D-SWE method. TheIQR/M was 15% suggesting a quality data set. TECHNICAL QUALITY: Adequate. COMPARISON: None. FINDINGS: Liver: There is no demonstrated mass lesion. Median liver stiffness measured 7 kPa. Abdomen: There is no demonstrated mass lesion. 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 Electronically Signed: Apolinar Rosen MD at 13:04 EDT ,
== END 2023-09-03 23:59 | disposition home or self-care (01) ==
PROVIDERS: PCP Family Medicine; Referring Provider Internal Medicine Gastroenterology; Visit Provider Internal Medicine Gastroenterology
DX: D61.818 Other pancytopenia (principal); L97.812 Non-pressure chronic ulcer of other part of right lower leg with fat layer exposed; L03.115 Cellulitis of right lower limb
CPT/HCPCS: 11042; 76700; 76981; 87070; 87075; 87101; 87205

== ENCOUNTER 2023-09-10 13:00 | Outpatient (RCR) | payer MEDICARE, OTHER, SELFPAY ==
[2023-08-29 00:25] VITALS: BP 142/61; PULSE 75; RESP 18; TEMP 36.3; O2SAT 100
[2023-09-03 13:02] VITALS: BP 141/60; PULSE 78; RESP 18
--- NOTE | 2023-09-03 13:22 | PCM.WC.PN ---
History of Present Illness Date of Service: 09/03/23 Chief Complaint: Left foot ulcerations History of Wound: Chronic wounds left foot self treatment as well as SNF treatment Subjective Subjective Mr. Arreola is a 82-year-old male presenting for follow-up of bilateral leg ulcerations. Patient states that home health care has come to his home for dressing changes Friday. He presents today to the wound care center for follow-up evaluation. Patient has a new area of concern to the He denies any recent falls. He denies codistal lateral ankle of the right lower extremity. He is unsure how it happened. He denies any trauma to the area. Hstitutional symptoms. No other pedal complaints at this time. Objective Data Objective Data Vital Signs: Vital Signs Temp Pulse Resp BP Pulse Ox O2 Del Method O2 Flow Rate 97.3 F L 78 18 141/60 H 100 Room Air 2 08/29/23 00:25 09/03/23 13:02 09/03/23 13:02 09/03/23 13:02 08/29/23 00:25 09/03/23 13:02 08/29/23 00:25 Oxygen Flow Rate (L/min) 2 Oxygen Delivery Method Room Air Physical Exam Narrative Vascular: DP and PT pulses are faintly palpable. CFT is delayed. Evidence of hemosiderin deposits appreciated bilateral lower extremity. Skin temperature great is warm to warm from proximal ankle to distal digit. Nonpitting edema appreciated to the right lower extremity. Blanchable erythema appreciated to the right ankle. No focal increase noted. Neurological: Light touch intact. Epicritic sensation is diminished. Patient does not respond to painful stimuli. Dermatological: Full-thickness ulceration to the right anterior medial leg is now healed. Evidence of new full-thickness ulceration appreciated to the distal lateral aspect of the right ankle. Ulceration measures 0.2 x 0.2 x 0.3 cm. Evidence of blanchable erythema. No drainage. No malodor. No probe to bone. Excisional debridement down to and including subcutaneous tissue with a number 1 mm dermal curette without incident. Predebridement measurement was callus. Postdebridement measurement 0.2 x 0.2 x 0.3 cm. Musculoskeletal: No pain on palpation or with sharp debridement to both ulcerations to the left foot. No pain with calf compression. Debridement Note Debridement Note Debridement Free Text: Excisional debridement down to and including subcutaneous tissue with a number 1 mm dermal curette without incident. Predebridement measurement was callus. Postdebridement measurement 0.2 x 0.2 x 0.3 cm. Post-Debridement Measurements and Additional Note: Post-Debridement Measurements/Treatment - Nurse 1 - General Ulcer Assessment Start: 09/03/23 13:02 Freq: Status: Active Protocol: GE Activity Type Activity Date Activity User E-sign Co-sign Detail Recorded Client Recorded Date Recorded By Document 09/03/23 13:02 [employer] 09/03/23 13:09 KW 09/03/23 13:02 - Today's Visit Information Type of service Follow-up Visit (Physician/TRAFFIC RATE CLERK ) Arrival Mode Ambulatory, Walker Patient Identification Verified (Name & Yes ) Vital Signs Pulse Rate (60-100) 78 Pulse Location Monitor Respiratory Rate (12-18) 18 Respiratory rate source Observation Oxygen Delivery Method Room Air Blood Pressure (90/60-120/80) 141/60 H Blood Pressure Mean (mm Hg) 87 Source Monitor Position Semi-Fowlers Blood Pressure Location Left Arm History Since Last Visit- (Skip if this is Patient's initial visit) Have you changed medications since your No last visit? Any new allergies or adverse reactions No Had a fall/change in ADL's that may No increase risk of falls Signs or symptoms of abuse and/or No neglect since last visit Have you been in the hospital since your No last visit? Has dressing in place as prescribed No Has compression in place as prescribed N/A Has offloadiing in place as prescribed N/A Experienced any changes in pain level or No management Left Footwear Regular Shoe Right Footwear Regular Shoe Pain Scale: 0-10 Numeric Is Patient Pain Free? Yes - Nurse 1 - General Ulcer Measurement Start: 09/03/23 13:02 Freq: Status: Active Protocol: Activity Type Activity Date Activity User E-sign Co-sign Detail Recorded Client Recorded Date Recorded By Document 09/03/23 13:02 [employer] 09/03/23 13:09 KW 09/03/23 13:02 Wound Center Nurse 1 #6 R lateral leg -Current Size (cm) - Length 0 -Current Size (cm) - Width 0 -Current Size (cm) - Depth 0 -Total Square Cm 0 -Ulcer Cleansing Rinsed/ Irrigated with Saline -Wound Comment(s) No lidocaine used #4 R Med LE/ Trauma -Current Size (cm) - Length 0 -Current Size (cm) - Width 0 -Current Size (cm) - Depth 0 -Total Square Cm 0 -Ulcer Cleansing Rinsed/ Irrigated with Saline -Wound Comment(s) no lidocaine used Right Calf (cm) 34.6 Right Ankle (cm) 22.5 WC - Nurse 2 - General Ulcer CM Notes Start: 09/03/23 13:02 Freq: Status: Active Protocol: Activity Type Activity Date Activity User E-sign Co-sign Detail Recorded Client Recorded Date Recorded By Document 09/03/23 13:13 Desktop 09/03/23 13:19 SUSAN 09/03/23 13:13 Wound Center Nurse 2 #6 R lateral leg -Correct Patient No -Correct Side, Site, Position No -Correct Procedure No -Procedure Performed No -Post Debridement (cm) - Length 0 -Post Debridement (cm) - Width 0 -Post Debridement (cm) - Depth 0 -Total Square (Post) (cm) 0 -Area of Debridement (cm) - Length 0 -Area of Debridement (cm) - Width 0 -Total Square (Area) (cm) 0 -Wound/Ulcer Outcome Healed- Epithelialized #4 R Med LE/ Trauma -Correct Patient No -Correct Side, Site, Position No -Correct Procedure No -Procedure Performed No 7-right anterior ankle -Time 13:18 -Correct Patient Yes -Correct Side, Site, Position Yes -Correct Procedure Yes -Procedure Performed Yes -Type of Procedure Debridement -Clinical Debridement Subcutaneous -Tissue Removed Subcutaneous -Post Debridement (cm) - Length 0.2 -Post Debridement (cm) - Width 0.2 -Post Debridement (cm) - Depth 0.3 -Total Square (Post) (cm) 0.04 -Area of Debridement (cm) - Length 0.2 -Area of Debridement (cm) - Width 0.2 -Total Square (Area) (cm) 0.04 -Tunneling No -Undermining/Tunneling No -Circular Undermining No -Wound/Ulcer Outcome Not Healed -Ulcer Cleansing Rinsed/ Irrigated with Saline -Foul Odor after Cleansing No -Bioengineered Tissue No -Bleeding Controlled with Pressure -Treatment Response Procedure Tolerated Well -Offloading No -Debridement - Subq, 1st 20sq cm Yes Pain Scale: 0-10 Numeric Is Patient Pain Free? Yes Assessment/Plan Assessment/Plan (1) Non-pressure chronic ulcer of unspecified part of right lower leg with fat layer exposed: CODE(S): L97.912 - Non-pressure chronic ulcer of unspecified part of right lower leg with fat layer exposed PLAN: Patient was examined and evaluated. All findings were discussed with the patient. All questions were answered to the patient's satisfaction. Excisional debridement down to and including subcutaneous tissue with a number 1 mm dermal curette without incident. Predebridement measurement was callus. Postdebridement measurement 0.2 x 0.2 x 0.3 cm. The area was cultured. The ulceration was dressed with Betadine paint and sterile Band-Aid followed by single-layer Tubigrip. Patient was instructed to change the Band-Aid and apply Betadine daily. He was understanding of this. There is concern for infection and the patient will be placed on a dose of Keflex 3 times daily 500 mg for 2 weeks. Cultures will be monitored and will change antibiotics if needed. Follow-up at the wound care center with Dr. Sampson in 1 week. (2) Cellulitis of right leg: CODE(S): L03.115 - Cellulitis of right lower limb
[2023-09-10 12:59] VITALS: BP 153/65; PULSE 79; RESP 18; TEMP 35.9
--- NOTE | 2023-09-10 13:51 | PN.PCM_ITS ---
History of Present Illness Date of Service: 09/10/23 Chief Complaint: Left foot ulcerations History of Wound: Chronic wounds left foot self treatment as well as SNF treatment Subjective Subjective Mr. Arreola is a 82-year-old male presenting for follow-up of bilateral leg ulcerations. Patient states that home health care has come to his home for dressing changes [place]. He presents today to the wound care center for follow- up evaluation. Patient has a new area of concern to the He denies any recent falls. He denies codistal lateral ankle of the right lower extremity. He is unsure how it happened. He denies any trauma to the area. Hstitutional symptoms. No other pedal complaints at this time. Objective Data Objective Data Vital Signs: Vital Signs Temp Pulse Resp BP Pulse Ox O2 Del Method O2 Flow Rate 96.7 F L 79 18 153/65 H 100 Room Air 2 09/10/23 12:59 09/10/23 12:59 09/10/23 12:59 09/10/23 12:59 08/29/23 00:25 09/10/23 12:59 08/29/23 00:25 Oxygen Flow Rate (L/min) 2 Oxygen Delivery Method Room Air Lab / Micro Data Micro: Microbiology 09/03/23 13:19 Wound - Ankle Gram Stain - Final 09/03/23 13:19 Wound - Ankle Wound Culture - Final No growth aerobically. 09/03/23 13:19 Wound - Ankle Anaerobic Culture - Final No anaerobic bacteria isolated. Physical Exam Narrative Vascular: DP and PT pulses are faintly palpable. CFT is delayed. Evidence of hemosiderin deposits appreciated bilateral lower extremity. Skin temperature great is warm to warm from proximal ankle to distal digit. Nonpitting edema appreciated to the right lower extremity. No erythema appreciated to the right ankle. Neurological: Light touch intact. Epicritic sensation is diminished. Patient does not respond to painful stimuli. Dermatological: Full-thickness ulceration to the right anterior medial leg is now healed. Full-thickness ulceration of distal lateral aspect of the right ankle is now healed. No erythema drainage or sign of infection. Musculoskeletal: No pain on palpation or with sharp debridement to both ulcerations to the left foot. No pain with calf compression. Debridement Note Debridement Note Post-Debridement Measurements and Additional Note: Post-Debridement Measurements/Treatment WC - Nurse 1 - General Ulcer Assessment Start: 09/03/23 13:02 Freq: Status: Active Protocol: GE Activity Type Activity Date Activity User E-sign Co-sign Detail Recorded Client Recorded Date Recorded By Document 09/03/23 13:02 KW Desktop 09/03/23 13:09 KW Document 09/10/23 12:59 KW Desktop 09/10/23 13:09 KW 09/03/23 09/10/23 13:02 12:59 - Today's Visit Information Type of service Follow-up Visit Follow-up Visit (Physician/MOTOR AND CHASSIS INSPECTOR (Physician/MOTOR AND CHASSIS INSPECTOR ) ) Arrival Mode Ambulatory, Ambulatory, Walker Walker Patient Identification Verified (Name & Yes Yes ) Vital Signs Temperature (97.8 F-99.1 F) 96.7 F L Temperature Source Temporal Pulse Rate (60-100) 78 79 Pulse Location Monitor Monitor Respiratory Rate (12-18) 18 18 Respiratory rate source Observation Observation Oxygen Delivery Method Room Air Room Air Blood Pressure (90/60-120/80) 141/60 H 153/65 H Blood Pressure Mean (mm Hg) 87 94 Source Monitor Monitor Position Semi-Fowlers Semi-Fowlers Blood Pressure Location Left Arm Left Arm History Since Last Visit- (Skip if this is Patient's initial visit) Have you changed medications since your No Yes last visit? Any new allergies or adverse reactions No No Had a fall/change in ADL's that may No No increase risk of falls Signs or symptoms of abuse and/or No No neglect since last visit Have you been in the hospital since your No Yes last visit? Has dressing in place as prescribed No Yes Has compression in place as prescribed N/A N/A Has offloadiing in place as prescribed N/A N/A Experienced any changes in pain level or No No management Left Footwear Regular Shoe Regular Shoe Right Footwear Regular Shoe Regular Shoe Pain Scale: 0-10 Numeric Is Patient Pain Free? Yes Yes - Nurse 1 - General Ulcer Measurement Start: 09/03/23 13:02 Freq: Status: Active Protocol: Activity Type Activity Date Activity User E-sign Co-sign Detail Recorded Client Recorded Date Recorded By Document 09/03/23 13:02 KW Desktop 09/03/23 13:09 KW Document 09/10/23 12:59 KW Desktop 09/10/23 13:09 KW 09/03/23 09/10/23 13:02 12:59 Wound Center Nurse 1 7-right anterior ankle -Current Size (cm) - Length 0.1 -Current Size (cm) - Width 0.1 -Current Size (cm) - Depth 0.1 -Total Square Cm 0.01 -Ulcer Cleansing Rinsed/ Irrigated with Saline -Foul Odor after Cleansing No -Wound Comment(s) NO LIDOCAINE APPLIED #6 R lateral leg -Current Size (cm) - Length 0 -Current Size (cm) - Width 0 -Current Size (cm) - Depth 0 -Total Square Cm 0 -Ulcer Cleansing Rinsed/ Irrigated with Saline -Wound Comment(s) No lidocaine used #4 R Med LE/ Trauma -Current Size (cm) - Length 0 -Current Size (cm) - Width 0 -Current Size (cm) - Depth 0 -Total Square Cm 0 -Ulcer Cleansing Rinsed/ Irrigated with Saline -Wound Comment(s) no lidocaine used Right Calf (cm) 34.6 Right Ankle (cm) 22.5 WC - Nurse 2 - General Ulcer CM Notes Start: 09/03/23 13:02 Freq: Status: Active Protocol: Activity Type Activity Date Activity User E-sign Co-sign Detail Recorded Client Recorded Date Recorded By Document 09/03/23 13:13 Desktop 09/03/23 13:19 Document 09/10/23 13:22 Laptop 09/10/23 13:23 09/03/23 09/10/23 13:13 13:22 Wound Center Nurse 2 7-right anterior ankle -Time 13:18 -Correct Patient Yes No -Correct Side, Site, Position Yes No -Correct Procedure Yes No -Procedure Performed Yes No -Type of Procedure Debridement -Clinical Debridement Subcutaneous -Tissue Removed Subcutaneous -Post Debridement (cm) - Length 0.2 0 -Post Debridement (cm) - Width 0.2 0 -Post Debridement (cm) - Depth 0.3 0 -Total Square (Post) (cm) 0.04 0 -Area of Debridement (cm) - Length 0.2 0 -Area of Debridement (cm) - Width 0.2 0 -Total Square (Area) (cm) 0.04 0 -Tunneling No -Undermining/Tunneling No -Circular Undermining No -Wound/Ulcer Outcome Not Healed Healed- Epithelialized -Ulcer Cleansing Rinsed/ Irrigated with Saline -Foul Odor after Cleansing No -Bioengineered Tissue No -Bleeding Controlled with Pressure -Treatment Response Procedure Tolerated Well -Offloading No -Debridement - Subq, 1st 20sq cm Yes #6 R lateral leg -Correct Patient No -Correct Side, Site, Position No -Correct Procedure No -Procedure Performed No -Post Debridement (cm) - Length 0 -Post Debridement (cm) - Width 0 -Post Debridement (cm) - Depth 0 -Total Square (Post) (cm) 0 -Area of Debridement (cm) - Length 0 -Area of Debridement (cm) - Width 0 -Total Square (Area) (cm) 0 -Wound/Ulcer Outcome Healed- Epithelialized #4 R Med LE/ Trauma -Correct Patient No -Correct Side, Site, Position No -Correct Procedure No -Procedure Performed No Pain Scale: 0-10 Numeric Is Patient Pain Free? Yes Yes - Nurse 3 - General Ulcer D/C NN Start: 09/03/23 13:02 Freq: Status: Active Protocol: Activity Type Activity Date Activity User E-sign Co-sign Detail Recorded Client Recorded Date Recorded By Document 09/03/23 13:22 Desktop 09/03/23 13:23 JF Document 09/10/23 13:23 JF Laptop 09/10/23 13:30 Edit Result 09/10/23 13:23 JF (1) Laptop 09/10/23 13:30 JF (1) Left - Tubular Bandage => Single Layer - Size of Tubigrip Used => Size E - Size E ($) => 1 Right - Tubular Bandage => Single Layer - Size of Tubigrip Used => Size E - Size E ($) => 1 09/03/23 09/10/23 13:22 13:23 Wound Care Center Nurse 3 7-right anterior ankle -Other Dressing betadine and bandaid Left -Tubular Bandage Single Layer -Size of Tubigrip Used Size E -Size E ($) 1 Right -Tubular Bandage Single Layer -Size of Tubigrip Used Size E -Size E ($) 1 -Other patient states he has tubigrips at home and does not want one today. Pain Scale: 0-10 Numeric Is Patient Pain Free? Yes Yes - Visit Discharge Discharge Condition Stable Stable Ambulatory Status Ambulatory, Ambulatory, Walker Walker Transportation Private Auto Private Auto Medication Reconcilliation completed & Yes Yes provided to patient/care provider Clinical Summary of Care Provided Yes Yes Assessment/Plan Assessment/Plan (1) Non-pressure chronic ulcer of unspecified part of right lower leg with fat layer exposed: CODE(S): L97.912 - Non-pressure chronic ulcer of unspecified part of right lower leg with fat layer exposed PLAN: Patient was examined and evaluated. All findings were discussed with the patient. All questions were answered to the patient's satisfaction. Patient's right lower extremity full-thickness ulcerations are now healed. Patient will continue his antibiotic as written. Educated the patient that he needs to wear compression at all times when walking. He was understanding of this. Prescription for compression stockings were dispensed to the patient to be measured and fitted at [facility]. Patient did state that he has multiple Tubigrip's and will use those until he needs to go to drug [place]. He will continue to take the antibiotic as written. He is grateful for his care. It was educated the patient if he has any new issues she is to follow-up with Dr. Sampson in his private office. He was understanding of this. Patient is grateful for his care and will follow-up as needed.
== END 2023-09-11 15:55 | disposition home or self-care (01) ==
LOC: WC 13:00
PROVIDERS: PCP Family Medicine; Referring Provider Internal Medicine; Visit Provider Podiatrist Foot & Ankle Surgery
DX: L97.812 Non-pressure chronic ulcer of other part of right lower leg with fat layer exposed (principal); L03.115 Cellulitis of right lower limb
CPT/HCPCS: 11042; 87070; 87075; 87101; 87205; 99213; G0463

== ENCOUNTER 2023-11-10 16:30 | Emergency (ER) | payer MEDICARE, OTHER, SELFPAY ==
[2023-11-10 16:31] VITALS: BP 152/72; PULSE 79; RESP 16; TEMP 36.6; O2SAT 97
--- NOTE | 2023-11-10 17:24 | EX.ED.DYSGE1 ---
HPI History of Present Illness Chief Complaint: Abn Labs Narrative Narrative: 83-year-old male past medical history of atrial fibrillation, ulcerative colitis in remission, anemia, and chronic kidney disease presents for abnormal laboratory work. 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 Mcintyre for anemia today. He stated that that was fine, but he received a call that his potassium was high. He denies any symptoms. No chest pain, no shortness of breath, no fatigue. She still does make urine. Who presents because of reported hyperkalemia. [facility] Medical History Alcohol use Anemia Atherosclerotic heart disease of [place] coronary artery without angina pectoris Atrial fibrillation Atrial fibrillation and flutter Cardiology follow-up encounter Carotid artery stenosis CKD (chronic kidney disease) stage 3, GFR 30-59 ml/min Debility Dietary restriction Elevated troponin Emphysema of lung Essential hypertension Fever Former smoker General weakness Hematemesis/vomiting blood High cholesterol History of atrial fibrillation History of cardioversion (~05/09/20) History of coronary artery disease History of echocardiogram History of edema History of GI bleed History of right inguinal hernia History of stress test History of transesophageal echocardiography (ROSI) History of umbilical hernia Hx of ulcerative colitis Hypercholesterolemia Hyperkalemia Hyperlipidemia Hyperlipidemia Hypertension Hypertension Injury of head and neck terminal carman (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) use 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 Mitral valve insufficiency Multiple excoriations PAD (peripheral artery disease) Palpitations Pancytopenia Premature atrial contractions Pulmonary hypertension Right carotid bruit Severe sinus bradycardia Subclavian artery stenosis, left (~10/15/19) Thrombocytopenia Thrombocytopenia Thyroid disease Ulcerative colitis Upper GI bleed Upper GI bleed Walker as ambulation aid Wears glasses Wears hearing aid Home Medications ferrous sulfate 325 mg (65 mg iron) tablet 325 mg PO DAILY vitamin 05/28/15 [History Last Taken 05/09/20] vitamin B complex 1 each PO DAILY vitamin 02/07/16 [History Last Taken 05/09/20] levothyroxine 50 mcg tablet 75 mcg PO DAILY thyroid 06/13/20 [History Last Taken Unknown] acetaminophen 500 mg tablet 1,000 mg (2 x 500 mg) PO Q6H PRN PRN Pain Score 1-5 #0 tabs 12/19/22 [Rx Last Taken Unknown] aspirin 81 mg tablet,delayed release 81 mg PO DAILY 04/14/23 [History Last Taken Unknown] atorvastatin 40 mg tablet (Lipitor) 40 mg PO DAILY cholesterol #90 tabs 04/14/23 [Rx Last Taken Unknown] amlodipine 10 mg tablet 10 mg PO DAILY #90 tabs 05/20/23 [Rx Last Taken Unknown] lisinopril 20 mg tablet 20 mg PO DAILY #90 tabs 05/21/23 [Rx Last Taken Unknown] zinc acetate 50 mg (zinc) capsule 50 mg PO DAILY 09/29/23 [History Last Taken Unknown] hydralazine 50 mg tablet 100 mg PO BID 11/04/23 [History Last Taken Unknown] Allergy/AdvReac Type Severity Reaction Status Date / Time hydrochlorothiazide Allergy Severe Rash Verified 11/10/23 16:32 furosemide [From Lasix] Allergy Severe Verified 11/10/23 16:32 Rash Itchy lovastatin [From Mevacor] Allergy Rash Verified 11/10/23 16:32 Family History Father CAD (coronary artery disease) Mother Cancer breast Surgical History Aortocoronary bypass status (~02/12/17) History of cardiac catheterization History of hand surgery History of right inguinal hernia repair History of umbilical hernia repair History of vasectomy Hx of CABG Hx of colonoscopy Hx of esophagogastroduodenoscopy Hx of heart bypass surgery S/P right inguinal hernia repair S/P umbilical hernia repair, follow-up exam Status post insertion of drug-eluting stent into right coronary artery for coronary artery disease (~04/2009) Social History adopted: No household members: spouse housing: house number of children: 2 current occupational status: retired Smoking Status: Former smoker Tobacco: How many years used: 50 (stopped about 10 yrs ago) how long ago did patient quit smokin years ago alcohol intake: current alcohol intake frequency: 3 or more drinks per day Alcohol type: beer, wine and hard liquor substance use type: does not use caffeine: Yes Type: coffee Number of servings: 2 ROS ROS ED ROS Narrative Constitutional: No fever, no chills. HEENT: No sore throat. No neck pain. No loss of vision. No rhinorrhea. Cardiovascular: No chest pain. No palpitations. No pedal edema. Respiratory: No cough, no shortness of breath. Abdominal: No abdominal pain. No nausea. No vomiting. Genitourinary: No dysuria. No hematuria. Musculoskeletal: No myalgias. No arthralgias. Neurologic: No headaches. No dizziness. No lightheadedness. Skin: No rash. No change in color. Psychiatric: No depression. No anxiety. EXAM Physical Exam Narrative Exam Narrative: Afebrile. Vital signs noted. HEENT: Normocephalic. Atraumatic. PERRL, EOMI. Neck soft and supple. No point tenderness or step off. Cardiovascular: Regular rate irregular heart rate and regular rhythm. No murmurs, rubs, or gallops appreciated. Respiratory: No tachypnea. Lungs clear to auscultation bilaterally. Gastrointestinal: Abdomen soft, nontender, with normoactive bowel sounds. No rebound or guarding. Neurological: Awake. Alert. Nonfocal, nonlateralizing. Ambulatory in ED to room. Skin: No rash. Normal color. No pallor. Musculoskeletal: No pedal edema. Full range of motion extremities. Const Vital Signs: 11/10/23 16:31 11/10/23 17:49 11/10/23 17:50 Temperature 98 F Temperature Source Temporal Pulse Rate 79 70 Respiratory Rate 16 13 Respiratory Effort Normal Non-Labored Respiratory Pattern Normal Blood Pressure 152/72 H 172/69 H Blood Pressure Mean 98 103 Pulse Ox 97 99 Oxygen Delivery Method Room Air Room Air MDM MDM MDM Narrative Medical decision making narrative: I reviewed his laboratory work from today and his creatinine is elevated at 2.5 with potassium of 6.2. In the differential diagnosis is hyperkalemia secondary to acute on chronic renal failure versus laboratory error. His laboratory work will be repeated and EKG will be obtained as well. He will be bolused normal saline 1 L intravenously. I reviewed his prior laboratory work as well. EKG was obtained and interpreted by myself independently as atrial fibrillation at 74 bpm without other ectopy or acute ST changes. No STEMI. I do not appreciate extremely peaked T waves. I do not feel calcium is indicated. Patient is asymptomatic with this. In review of his laboratory work from today, here in the emergency department, I his hemoglobin is stable at 9.9 with platelet count 131. Of most significance is his potassium is lowered at 5.4 with his creatinine 2.6, at his baseline, glucose of 128 and anion gap normal at 5. I was going to give the patient Kayexalate, but it is contraindicated in his ulcerative colitis although he states that it is in remission. He will be given insulin and dextrose. I discussed patient with Dr. Mcintyre who agrees that the patient can receive this medication and then have his potassium rechecked in 1 to 2 days. As he is asymptomatic I feel he can be discharged safely home with follow-up. Return instructions to the emergency department were reviewed. I do not feel that he requires admission for his hyperkalemia at this time. Disposition is discharged home in stable condition. History & Record Review Discussion w/independent historian: Patient Lab Data Attestation: I reviewed the patient's lab results. Labs: Laboratory Results - last 24 hr 11/10/23 17:35 WBC 5.1 RBC 2.97 L Hgb 9.9 L Hct 31.4 L MCV 105.7 H MCH 33.3 H MCHC 31.5 L RDW Std Deviation 55.3 H RDW Coeff of Chanel 14.0 Plt Count 131 L MPV 9.5 Immature Gran % (Auto) 0.200 Neut % (Auto) 64.1 Lymph % (Auto) 18.7 L [place] % (Auto) 10.1 H Eos % (Auto) 6.1 H Baso % (Auto) 0.8 Absolute Neuts (auto) 3.3 Absolute Lymphs (auto) 0.95 Nucleated RBC % 0 Sodium 140 Potassium 5.4 H Chloride 114 H Carbon Dioxide 21.0 Anion Gap 5 BUN 59 H Creatinine 2.60 H Estim Creat Clear Calc 22.62 Est GFR (MDRD) Af Amer 31 L Est GFR (MDRD) Non-Af 25 L BUN/Creatinine Ratio 22.7 H Glucose 128 H Calcium 9.0 Discharge Plan Triage Chief Complaint: Abn Labs ED Provider: Hans Armendariz Dx/Rx/DC Orders Clinical Impression: Chronic kidney insufficiency, Hyperkalemia Instructions: ED Chronic Kidney Disease (CKD), ED Hyperkalemia Prescriptions: No Action aspirin 81 mg tablet,delayed release (DR/EC) 81 mg PO DAILY zinc acetate 50 mg (zinc) capsule 50 mg PO DAILY ferrous sulfate 325 MG tablet 325 mg PO DAILY Patient Comments: Iron supplement vitamin B complex 1 EACH capsule 1 each PO DAILY Patient Comments: Vitamin supplement acetaminophen 500 mg Tablet 1,000 mg PO Q6H PRN PRN (Reason: Pain Score 1-5) Qty: 0 0RF levothyroxine 50 mcg tablet 75 mcg PO DAILY atorvastatin [Lipitor] 40 mg tablet 40 mg PO DAILY Qty: 90 3RF amlodipine 10 mg tablet 10 mg PO DAILY Qty: 90 3RF lisinopril 20 mg tablet 20 mg PO DAILY Qty: 90 3RF hydralazine 50 mg tablet 100 mg PO BID Primary Care Provider: Rosa Maria Santacruz Referrals: Rosa Maria Santacruz MD [Primary Care Provider] - 2 Days Mathieu Mcintyre MD [Med Staff - Active Staff] - 2 Days Activity Restrictions/Additional Instructions: Have your potassium rechecked in 1 to 2 days by your primary care physician or Dr. Mcintyre Disposition Disposition: Home, Self Care
[2023-11-10 17:45] LABS: Absolute Lymphocyte Count 0.95 X10^3/uL (0.83-4.51); Absolute Neutrophil Count 3.3 X10^3/uL (2.0-7.7); Basophil# 0.04 X10^3/uL; Basophil% 0.8 % (0-1); Eosinophil# 0.31 X10^3/uL; Eosinophils% 6.1 % (0-5); Hematocrit 31.4 % (40-54); Hemoglobin 9.9 g/dL (13.0-16.5); Lymphocyte # 0.95 X10^3/ul (0.83-4.51); Lymphocyte % 18.7 % (19-41); Mean Corp Hgb Conc 31.5 g/dL (32-36); Mean Corpuscular Hgb 33.3 pg (27.0-32.0); Mean Corpuscular Volume 105.7 fL (80-94); Mean Platelet Vol. 9.5 fl (6.2-12.0); Monocyte# 0.51 X10^3/uL; Monocyte% 10.1 % (0-10); NRBC Flagged by Analyzer 0 % (0-5); Neutrophil # 3.25 X10^3/uL (2.7-7.7); Neutrophil % 64.1 % (47-70); Platelet Count 131 K/mm3 (150-450); RBC Distribution Width SD 55.3 fl (35.1-43.9); Red Blood Count 2.97 M/mm3 (4.6-6.2); White Blood Count 5.1 K/mm3 (4.4-11.0)
[2023-11-10] MEDS: 0.9% Normal Saline (1000mL) 1,000 ML 1000 ML IV (17:46)
[2023-11-10 17:48] VITALS: BMI 24.3
[2023-11-10 17:49] VITALS: BP 172/69; PULSE 70; RESP 13; O2SAT 99
[2023-11-10 18:08] LABS: Anion Gap 5 (5-15); BUN 59 mg/dL (7-18); BUN/Creat Ratio 22.7 RATIO (10-20); Chloride 114 mmol/L (98-107); EST Glomerular Filtration Rate 25 mL/min (>60); Est Glom Filt Rate - Afr Amer 31 mL/min (>60); Estimated Creatinine Clearance 22.62 ml/min; Glucose 128 mg/dL (74-106); Potassium 5.4 mmol/L (3.5-5.1); Sodium Level 140 mmol/L (136-145)
[2023-11-10] MEDS: Sodium Bicarbonate 150 MEQ in Dextrose 5%-Water (1000mL Bag) 1,000 ML 250 MEQ IV (18:55)
[2023-11-10] MEDS: Dextrose 50%-Water 25 GM/50 ML DISP.SYRIN IV (19:14)
[2023-11-10] MEDS: Insulin Lispro 10 UNIT in Syringe 0 ML 6 UNIT IV (19:20)
[2023-11-10 19:21] VITALS: BP 169/71; PULSE 80; RESP 16; TEMP 36.7; O2SAT 99
== END 2023-11-10 19:42 | disposition home or self-care (01) ==
PROVIDERS: Emergency Provider Emergency Medicine; PCP Family Medicine; Visit Provider Emergency Medicine
DX: I12.9 Hypertensive chronic kidney disease with stage 1 through stage 4 chronic kidney disease, or unspecified chronic kidney disease (principal); I48.91 Unspecified atrial fibrillation; N18.30 Chronic kidney disease, stage 3 unspecified; E87.5 Hyperkalemia; Z87.891 Personal history of nicotine dependence; I25.10 Atherosclerotic heart disease of native coronary artery without angina pectoris; E78.00 Pure hypercholesterolemia, unspecified; Z79.82 Long term (current) use of aspirin; Z79.899 Other long term (current) drug therapy; Z98.52 Vasectomy status; Z95.1 Presence of aortocoronary bypass graft
CPT/HCPCS: 80048; 85025; 93005; 96361; 96365; 96375; 99285; J7030; A4216

== ENCOUNTER → 2024-04-08 | Outpatient (CLI) | payer MEDICARE, OTHER, SELFPAY ==
[2024-04-08 12:14] LABS: Hematocrit 29.1 % (40-54); Hemoglobin 9.1 g/dL (13.0-16.5); Mean Corp Hgb Conc 31.3 g/dL (32-36); Mean Corpuscular Hgb 34.1 pg (27.0-32.0); Mean Platelet Vol. 10.7 fl (6.2-12.0); Platelet Count 140 K/mm3 (150-450); RBC Distribution Width CV 13.5 % (11.6-14.6); RBC Distribution Width SD 53.8 fl (35.1-43.9); Red Blood Count 2.67 M/mm3 (4.6-6.2)
[2024-04-08 12:57] LABS: AST(SGOT) 10 U/L (15-37); Alanine Aminotransfer ALT/SGPT 12 U/L (16-61); Albumin, Serum 3.8 g/dL (3.2-5.0); Alkaline Phosphatase 105 U/L (45-117); Bilirubin, Direct 0.15 mg/dL (0.00-0.30); Cholesterol 117 mg/dL (200); Globulin 2.8 g/dL (2.2-4.2); High Density Lipoprotein 73 mg/dL; Protein, Total 6.6 g/dL (6.4-8.2); Triglycerides 74 mg/dL; Very Low Density Lipoprotein 15 mg/dL (5-40)
== END | disposition home or self-care (01) ==
LOC: MTLAB 09:57
PROVIDERS: PCP Family Medicine; Referring Provider Internal Medicine Cardiovascular Disease; Visit Provider Internal Medicine Cardiovascular Disease
DX: D50.9 Iron deficiency anemia, unspecified (principal); N18.4 Chronic kidney disease, stage 4 (severe); I25.10 Atherosclerotic heart disease of native coronary artery without angina pectoris; E78.5 Hyperlipidemia, unspecified; D63.1 Anemia in chronic kidney disease
CPT/HCPCS: 36415; 80061; 80076; 85027

== ENCOUNTER → 2024-09-14 | Outpatient (CLI) | payer MEDICARE, OTHER, SELFPAY ==
[2024-09-14 19:05] LABS: T4 Total, Thyroxin 5.8 ug/dL (4.5-12.1); Thyroid Stim Hormone (TSH) 0.827 uIU/mL (0.300-4.200)
== END | disposition home or self-care (01) ==
LOC: MTLAB 15:30
PROVIDERS: PCP Family Medicine; Referring Provider Family Medicine; Visit Provider Family Medicine
DX: E03.9 Hypothyroidism, unspecified (principal)
CPT/HCPCS: 36415; 84436; 84443

== ENCOUNTER → 2024-10-06 | Outpatient (CLI) | payer MEDICARE, OTHER, SELFPAY ==
--- NOTE | 2024-10-06 08:47 | CDU_ITS ---
Reason For Study Reason For Study: Carotid stenosis Rt. Velocities/BP Lt. Velocities/BP Prox CCA 115.8/13.9 cm/sec. Prox CCA 91.6/9.3 cm/sec. Mid CCA 99.8/15.1 cm/sec. Mid CCA 84.2/17.9 cm/sec. Dist CCA 126.8/15.1 cm/sec. Dist CCA 67.7/9.5 cm/sec. Prox ICA 269.3/52.7 cm/sec. Prox ICA 202.4/24.6 cm/sec. Mid ICA 153.7/37.1 cm/sec. Mid ICA 107/21.2 cm/sec. Dist ICA 115.8/25.8 cm/sec. Dist ICA 97.7/21.6 cm/sec. Rt. ICA/CCA = 2.70. Lt. ICA/CCA = 2.40. Prox ECA 130.2 cm/sec. Prox ECA 465.6/29.5 cm/sec. Rt. Vert. 58.1/7.5 cm/sec. Lt. Vert. 51.2/10.6 cm/sec. Right Extracranial There is heterogeneous, irregular atherosclerotic plaque noted in the right common carotid artery. There is heterogeneous, irregular atherosclerotic plaque noted in the right internal carotid artery. There is heterogeneous, irregular atherosclerotic plaque noted in the right external carotid artery. Antegrade flow is noted in the right vertebral artery. Left Extracranial There is homogeneous, smooth atherosclerotic plaque noted in the left common carotid artery. There is heterogeneous, irregular atherosclerotic plaque noted in the left internal carotid artery. There is heterogeneous, irregular atherosclerotic plaque noted in the left external carotid artery. Antegrade flow is noted in the left vertebral artery. Procedure Carotid Duplex 34549. This is a Carotid Duplex examination using B-mode, color flow and specral Doppler. Preliminary report given to Zhanna. Exam performed in department. VL/Carotid Duplex Ultrasound Interpretation Summary Severe (>70%) stenosis right extracranial internal carotid. Moderate (50-69%) s tenosis left extracranial internal carotid. Patent and antegrade vertebrals bilaterally. Ordering Physician: Singh Khanna Referring Physician: Rosa Maria Santacruz M.D. Performed By: Fe Turner RVT
--- NOTE | 2024-10-06 08:47 | ART_ITS ---
Reason For Study Reason For Study: PAD Procedure A bilateral lower extremity continuous wave Doppler with analog waveform analysis and ankle brachial indexes. Left Segmental Pressures Left brachial= 161mmHg. Left posterior tibial artery = >254mmHg. Left dorsalis pedis artery = >254mmHg. Left digit = 76 mmHg. The left dorsalis pedis waveforms are biphasic. The left posterior tibial artery waveforms are biphasic. Right Segmental Pressures Right brachial= 173mmHg. Right posterior tibial artery = >254mmHg. Right dorsalis pedis artery = >254mmHg. Right digit = 84 mmHg. The right dorsalis pedis waveforms are biphasic. The right posterior tibial artery waveforms are biphasic. Indices The right ankle brachial index by the dorsalis pedis is NC. The right ankle brachial index by the posterior tibial artery is NC. The right digital-brachial index is 0.49. The left ankle brachial index by the dorsalis pedis is NC. The left ankle brachial index by the posterior tibial artery is NC. The left digital-brachial index is 0.44. VL/Ankle Brachial Index Interpretation Summary Bilateral noncompressible and normal waveform and biphasic flow. Ordering Physician: Singh Khanna Referring Physician: Rosa Maria Santacruz M.D. Performed By: Fe Turner RVT
--- NOTE | 2024-10-06 09:55 | MES_ITS ---
Reason For Study Reason For Study: Mesenteric artery stenosis Aorta Proximal abdominal aorta 1.44 x 1.46 cm . Proximal abdominal aorta peak systolic velocity is 178.5 cm/sec . Distal abdominal aorta 1.38 x 1.38 cm . Distal abdominal aorta peak systolic velocity is 154.9. cm/sec . . Celiac artery, 510 cm/sec. Hepatic artery, 360.1 cm/sec. Splenic artery, 157.1 cm/sec. SMA, origin, 541.2 cm/sec. SMA, prox, 489.3 cm/sec. SMA, mid, 306.4 cm/sec. SMA, distal, 88.2 cm/sec. LELAND, origin, 551.5 cm/sec. LELAND, prox, 372.5 cm/sec. LELAND, mid, 264.1 cm/sec. LELAND, distal, 117.4 cm/sec. Patient Safety Preliminary report given to Zhanna. VL/Mesenteric Artery Duplex Interpretation Summary Celiac, SMA and LELAND with severe stenosis noted. Ordering Physician: MD Singh Khanna Referring Physician: Rosa Maria Santacruz M.D. Performed By: Fe Turner RVT
[2024-10-06 14:57] LABS: AST(SGOT) 16 U/L (<=37); Alanine Aminotransfer ALT/SGPT 8 U/L (<=46); Albumin, Serum 4.3 g/dL (3.4-4.8); Alkaline Phosphatase 84 U/L (40-129); Bilirubin, Direct 0.19 mg/dL (0.00-0.30); Cholesterol 133 mg/dL (<=200); Globulin 2.2 g/dL (2.2-4.2); High Density Lipoprotein 76 mg/dL; Low Density Lipoprotein Calc. 45 mg/dL; Protein, Total 6.5 g/dL (5.9-8.4); Total Bilirubin 0.34 mg/dL (0.00-1.30); Triglycerides 58 mg/dL; Very Low Density Lipoprotein 12 mg/dL (5-40); cholesterol:hdl ratio screen 1.75
== END | disposition home or self-care (01) ==
LOC: CVS 08:36
PROVIDERS: Student in an Organized Health Care Education/Training Program; PCP Family Medicine; Referring Provider Surgery Vascular Surgery; Visit Provider Surgery Vascular Surgery
DX: I77.1 Stricture of artery (principal); I10 Essential (primary) hypertension; I65.23 Occlusion and stenosis of bilateral carotid arteries; I73.9 Peripheral vascular disease, unspecified; E78.00 Pure hypercholesterolemia, unspecified
CPT/HCPCS: 36415; 80061; 80076; 93880; 93922; 93975

== ENCOUNTER 2024-11-08 14:40 | Emergency (ER) | payer MEDICARE, OTHER, SELFPAY ==
[2024-11-08] VITALS (10 sets, daily range): BP systolic 122–188; BP diastolic 61–92; PULSE 69–89; RESP 15–21; TEMP 36.5–36.6; O2SAT 95–99; BMI 24.2
--- NOTE | 2024-11-08 15:47 | EKG12_ITS ---
Test Reason : GENERAL Blood Pressure : */* mmHG Vent. Rate : 74 BPM Atrial Rate : 74 BPM P-R Int : 182 ms QRS Dur : 104 ms QT Int : 382 ms P-R-T Axes : -12 -44 62 degrees QTcB Int : 424 ms Normal sinus rhythm Left axis deviation Cannot rule out Inferior infarct , age undetermined Abnormal ECG Confirmed by Roni Rausch ([id number]), newspaper copy editor YOBANY COLLINS ([id number]) on 11/09/2024 9:15:27 AM Referred By: Frederick Roberts Confirmed By: Roni Rausch
[2024-11-08 16:22] LABS: Absolute Lymphocyte Count 0.74 X10^3/uL (0.83-4.51); Absolute Neutrophil Count 3.1 X10^3/uL (2.0-7.7); Basophil# 0.04 X10^3/uL; Basophil% 0.9 % (0-1); Eosinophil# 0.22 X10^3/uL; Eosinophils% 4.8 % (0-5); Hematocrit 32.7 % (40-54); Hemoglobin 10.6 g/dL (13.0-16.5); Lymphocyte # 0.74 X10^3/ul (0.83-4.51); Lymphocyte % 16.3 % (19-41); Mean Corp Hgb Conc 32.4 g/dL (32-36); Mean Corpuscular Hgb 34.5 pg (27.0-32.0); Mean Corpuscular Volume 106.5 fL (80-94); Mean Platelet Vol. 9.9 fl (6.2-12.0); Monocyte# 0.46 X10^3/uL; Monocyte% 10.1 % (0-10); NRBC Flagged by Analyzer 0 % (0-5); Neutrophil # 3.08 X10^3/uL (2.7-7.7); Neutrophil % 67.9 % (47-70); Platelet Count 123 K/mm3 (150-450); RBC Distribution Width CV 13.2 % (11.6-14.6); RBC Distribution Width SD 51.6 fl (35.1-43.9); Red Blood Count 3.07 M/mm3 (4.6-6.2); White Blood Count 4.5 K/mm3 (4.4-11.0)
--- NOTE | 2024-11-08 16:46 | EX.ED.DYSGE1 ---
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 His potassium was elevated when his labs came back so he was directed to come to the ER. Patient states he is asymptomatic. He has been urinating without difficulty. He does not see nephrology. [facility] Medical History Multiple excoriations Anemia Pulmonary hypertension Severe sinus bradycardia CKD (chronic kidney disease) stage 3, GFR 30-59 ml/min General weakness Debility Hyperkalemia Palpitations History of edema Elevated troponin Fever Mitral valve insufficiency PAD (peripheral artery disease) Pancytopenia History of right inguinal hernia History of umbilical hernia Wears hearing aid Wears glasses Alcohol use Thyroid disease Walker as ambulation aid High cholesterol Injury of head and neck Dietary restriction History of GI bleed Hx of ulcerative colitis History of stress test History of echocardiogram History of transesophageal echocardiography (ROSI) Cardiology follow-up encounter History of atrial fibrillation Emphysema of lung Hyperlipidemia Hypertension Atrial fibrillation Hypertension Former smoker History of cardioversion (~05/09/20) Subclavian artery stenosis, left (~10/15/19) Essential hypertension Thrombocytopenia Upper GI bleed Atherosclerotic heart disease of [place] coronary artery without angina pectoris Premature atrial contractions Atrial fibrillation and flutter care home (current) use 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 Hematemesis/vomiting blood Upper GI bleed History of coronary artery disease Thrombocytopenia Ulcerative colitis Right carotid bruit Hypercholesterolemia Home Medications ?Medication ?Instructions ?Recorded ?Last Taken ?Type ferrous sulfate 325 mg (65 mg 325 mg PO DAILY vitamin 05/28/15 05/09/20 History iron) tablet vitamin B complex 1 each PO DAILY vitamin 02/07/16 05/09/20 History acetaminophen 500 mg tablet 1,000 mg (2 x 500 mg) PO Q6H PRN 12/19/22 Unknown Rx PRN Pain Score 1-5 #0 tabs aspirin 81 mg tablet,delayed 81 mg PO DAILY 04/14/23 Unknown History release zinc acetate 50 mg (zinc) capsule 50 mg PO DAILY 09/29/23 Unknown History atorvastatin 40 mg tablet (Lipitor) 40 mg PO DAILY cholesterol #90 tabs 03/08/24 Unknown Rx hydralazine 50 mg tablet 100 mg (2 x 50 mg) PO BID #180 tabs 04/09/24 Unknown Rx amlodipine 10 mg tablet 10 mg PO DAILY #90 tabs 07/16/24 Unknown Rx lisinopril 20 mg tablet 20 mg PO DAILY #90 tabs 07/16/24 Unknown Rx Held on 11/08/24. Instructions: Order Changed levothyroxine 50 mcg tablet 50 mcg PO DAILY thyroid 10/01/24 Unknown History balsalazide 750 mg capsule mg PO 11/08/24 Unknown History Allergy/AdvReac Type Severity Reaction Status Date / Time hydrochlorothiazide Allergy Severe Rash Verified 11/08/24 14:41 furosemide (From Lasix) Allergy Severe Verified 11/08/24 14:41 Rash Itchy lovastatin (From Mevacor) Allergy Rash Verified 11/08/24 14:41 Family History Father CAD (coronary artery disease) Mother Cancer breast Surgical History S/P umbilical hernia repair, follow-up exam S/P right inguinal hernia repair History of umbilical hernia repair History of right inguinal hernia repair Hx of colonoscopy History of cardiac catheterization Hx of heart bypass surgery Hx of esophagogastroduodenoscopy Hx of CABG History of hand surgery History of vasectomy Aortocoronary bypass status (~02/12/17) Status post insertion of drug-eluting stent into right coronary artery for coronary artery disease (~04/2009) Social History adopted: No household members: spouse housing: house number of children: 2 current occupational status: retired Smoking Status: Former smoker Tobacco: How many years used: 50 (stopped about 10 yrs ago) how long ago did patient quit smokin years ago alcohol intake: current alcohol intake frequency: 3 or more drinks per day Alcohol type: beer, wine and hard liquor substance use type: does not use caffeine: Yes Type: coffee Number of servings: 2 ROS ROS ED Constitutional Constitutional ED: Denies chills or fever(s) Eyes Eyes: Denies change in vision or diplopia ENT ENT ED: Denies rhinorrhea or sore throat Cardiovascular Cardiovascular: Denies chest pain or palpitations Respiratory/Chest Respiratory/Chest: Denies cough or dyspnea Gastrointestinal Gastrointestinal: Denies abdominal pain, diarrhea, nausea or vomiting Genitourinary Genitourinary ED: Denies dysuria or hematuria Musculoskeletal Musculoskeletal: Denies back pain or neck pain Integumentary Denies abscess or rash Neurologic Neurologic: Denies headache(s), paresthesias or weakness Psychiatric Psychiatric: Denies anxiety or suicidal thoughts EXAM Physical Exam Const Vital Signs: 11/08/24 14:42 11/08/24 16:34 11/08/24 17:00 Temperature 98 F 97.7 F L Temperature Source Oral Oral Pulse Rate 76 78 73 Respiratory Rate 19 H 15 15 Respiratory Pattern Blood Pressure 154/71 H 188/69 H 172/61 H Blood Pressure Mean 98 108 98 Pulse Ox 97 99 99 Oxygen Delivery Method Room Air Room Air 11/08/24 17:22 11/08/24 18:00 11/08/24 19:00 Temperature Temperature Source Pulse Rate 69 84 82 Respiratory Rate 16 21 H 20 H Respiratory Pattern Normal Blood Pressure 166/74 H 172/92 H Blood Pressure Mean 104 118 Pulse Ox 95 97 Oxygen Delivery Method Room Air 11/08/24 20:00 11/08/24 21:00 11/08/24 22:00 Temperature Temperature Source Pulse Rate 86 82 89 Respiratory Rate 15 Respiratory Pattern Blood Pressure 156/83 H 144/79 H 122/67 H Blood Pressure Mean 107 100 85 Pulse Ox 95 99 97 Oxygen Delivery Method Positive well nourished and well developed General Appearance ED: well developed and NAD HEENT Reports moist mucous membranes normocephalic and atraumatic Eyes PERRL and EOMs intact bilaterally Neck full ROM and supple Resp normal respiratory effort and clear to auscultation bilaterally Cardio regular rate and regular rhythm Heart Sounds: murmur systolic I/ soft left sternal border GI non-tender and non-distended Auscultation: normoactive bowel sounds Palpation: soft Back/Spine no CVA tenderness General Back: other FROM Extremity normal to inspection General Extremety ED: Yes edema; Negative for pulses abnormal or tenderness General Extremity: edema bilateral lower extremity Details: mild; Negative for pulses abnormal Neuro oriented x3, CN's II-XII intact bilaterally and no sensory deficits noted Sensorium / Orientation: awake and alert Motor Exam: strength 5/5 throughout Skin no rashes or lesions noted and no wounds MDM MDM MDM Narrative Medical decision making narrative: I reviewed his old labs, his potassium was 6.1. No report of any hemolysis. While repeating this, to rule out lab error, treated him with insulin/glucose and albuterol. Held on Kayexalate because he has a history of ulcerative colitis. Patient did well and remained asymptomatic had no telemetry events. Repeat potassium is 5.0 within normal range. I tried for several hours to get a hold of nephrology, apparently there is nobody on-call for unassigned patients. His renal function is no worse than usual so I do not think he needs to be admitted for this right now, we can give him nephrology's information, but in the meantime he may need to follow-up with his PCP to have a repeat potassium level, or Dr. Mcintyre. Lab Data Attestation: I reviewed the patient's lab results. Labs: Laboratory Results - last 24 hr 11/08/24 11/08/24 11/08/24 16:10 18:29 19:36 WBC 4.5 RBC 3.07 L Hgb 10.6 L Hct 32.7 L MCV 106.5 H MCH 34.5 H MCHC 32.4 RDW Std Deviation 51.6 H RDW Coeff of [place]el 13.2 Plt Count 123 L MPV 9.9 Immature Gran % (Auto) 0.000 Neut % (Auto) 67.9 Lymph % (Auto) 16.3 L [place] % (Auto) 10.1 H Eos % (Auto) 4.8 Baso % (Auto) 0.9 Absolute Neuts (auto) 3.1 Absolute Lymphs (auto) 0.74 L Nucleated RBC % 0 Sodium 137 Potassium 6.6 H* 5.0 Chloride 107 Carbon Dioxide 18.5 L Anion Gap 11 BUN 49 H Creatinine 2.54 H Estim Creat Clear Calc 22.75 L Est GFR (MDRD) Non-Af 24 L BUN/Creatinine Ratio 19.3 Glucose 101 H Calcium 9.6 POC Glucose 223 H Rhythm Strip Rhythm Strip: Sinus Rhythm Rate: 74 Ectopy: None EKG Initial EKG: Attestation: I personally reviewed and interpreted this EKG as follows: Interpretation: Sinus Rhythm and No Acute Injury Pattern Comments: Narrow QRS. Leftward axis. Some mildly peaked T waves in the precordial leads compared with old. Otherwise unchanged. Discharge Plan Triage Chief Complaint: Abn Labs ED Provider: Frederick Roberts Dx/Rx/DC Orders Clinical Impression: Acute hyperkalemia, Chronic kidney disease (CKD) Instructions: ED Hyperkalemia Prescriptions: No Action aspirin 81 mg tablet,delayed release (DR/EC) 81 mg PO DAILY zinc acetate 50 mg (zinc) capsule 50 mg PO DAILY balsalazide 750 mg capsule PO ferrous sulfate 325 MG tablet 325 mg PO DAILY Patient Comments: Iron supplement vitamin B complex 1 EACH capsule 1 each PO DAILY Patient Comments: Vitamin supplement acetaminophen 500 mg Tablet 1,000 mg PO Q6H PRN PRN (Reason: Pain Score 1-5) Qty: 0 0RF atorvastatin [Lipitor] 40 mg tablet 40 mg PO DAILY Qty: 90 3RF hydralazine 50 mg tablet 100 mg PO BID Qty: 180 3RF amlodipine 10 mg tablet 10 mg PO DAILY Qty: 90 3RF lisinopril 20 mg tablet 20 mg PO DAILY Qty: 90 3RF levothyroxine 50 mcg tablet 50 mcg PO DAILY Primary Care Provider: Rosa Maria Santacruz Referrals: Rosa Maria Santacruz MD [Primary Care Provider] - Kvng James MD [Med Staff - Consulting] - As soon as possible Mathieu Mcintyre MD [Med Staff - Active Staff] - As soon as possible Print Language: Setswana Disposition Disposition: Home, Self Care
[2024-11-08 17:00] LABS: Anion Gap 11 (5-15); BUN 49 mg/dL (4-19); BUN/Creat Ratio 19.3 RATIO (10-20); Calcium,Total 9.6 mg/dL (7.6-11.0); Carbon Dioxide 18.5 mmol/L (21.0-32.0); Chloride 107 mmol/L (98-108); Creatinine, Serum 2.54 mg/dL (0.70-1.20); EST Glomerular Filtration Rate 24 (>60); Estimated Creatinine Clearance 22.75 ml/min (50-250); Glucose 101 mg/dL (70-99); Potassium 6.6 mmol/L (3.3-5.1); Sodium Level 137 mmol/L (133-145)
[2024-11-08] MEDS: Dextrose 10%-Water 250 ML 999 ML IV (17:07)
[2024-11-08] MEDS: Albuterol *CONC* 2.5mg/0.5mL VIAL.NEB. 10 MG INHALATION (17:20)
[2024-11-08] MEDS: Insulin Lispro 10 UNIT in Syringe 0 ML 6 UNIT IV (18:29)
[2024-11-08] MEDS: Dextrose 10%-Water 250 ML 40 ML IV (18:30)
[2024-11-08 18:51] LABS: Bedside Glucose 223 mg/dL (74-106)
== END 2024-11-08 22:17 | disposition home or self-care (01) ==
PROVIDERS: Emergency Provider Emergency Medicine; PCP Family Medicine; Referring Provider Emergency Medicine; Visit Provider Emergency Medicine
DX: E87.5 Hyperkalemia (principal); J43.9 Emphysema, unspecified; N18.30 Chronic kidney disease, stage 3 unspecified; Z87.891 Personal history of nicotine dependence; E78.00 Pure hypercholesterolemia, unspecified; I12.9 Hypertensive chronic kidney disease with stage 1 through stage 4 chronic kidney disease, or unspecified chronic kidney disease; I25.10 Atherosclerotic heart disease of native coronary artery without angina pectoris; D64.9 Anemia, unspecified; Z95.5 Presence of coronary angioplasty implant and graft
CPT/HCPCS: 80048; 82962; 84132; 85025; 93005; 94640; 96361; 96374; 99282; A4216

== ENCOUNTER 2024-11-18 07:48 | Outpatient (CLI) | payer MEDICARE, OTHER, SELFPAY ==
--- NOTE | 2024-11-18 07:51 | CT_ITS ---
PROCEDURE: CTA ABD/PELVIS W/WO CONTRAST 11/18/2024 REASON FOR EXAM: STRICTURE OF ARTERY TECHNIQUE: CTA imaging of the abdomen and pelvis with intravenous contrast. Multiplanar and multisequence images were obtained. CONTRAST: Isovue 370 VOLUME: 100 mL Gauge IV One or more dose reduction techniques were used (e.g., Automated exposure control, adjustment of the mA and/or kV according to patient size, use of iterative reconstruction technique). RADIATION DOSE SUMMARY: CTDlvol: 15.7 mGy DLP: 739 mGycm FINDINGS: Aorta: Moderate multifocal stenosis. Iliac Arteries: Moderate multifocal stenosis. Celiac: Occluded origin. Recanalized 3 cm distal to its origin. Ectatic hepatic artery. Moderate multifocal stenosis distal to this level. SMA: Endovascular stent at its origin. The stent is patent. 70% stenosis. LELAND : 80% stenosis of its origin. Right Renal: 80% stenosis. Left Renal: 70% stenosis. Small sliding hiatal hernia. Left inguinal hernia containing nonincarcerated segment of the colon. Right inguinal hernia containing nonincarcerated fat. Mild chronic right renal atrophy. Bilateral scattered simple renal cysts are noted with the largest measuring 5.8 cm. Mild prostatomegaly. Diffuse thickening of the bladder, probably chronic bladder outlet obstruction. Severe chronic compression fracture of L1 vertebral body. Mild associated retropulsion without secondary high-grade spinal canal stenosis. Increased kyphosis at the level of the thoracolumbar junction with exaggerated lumbar lordosis. Diffuse thickening of the stomach suggestive of gastritis. Uncomplicated colonic diverticulosis. Normal liver. Normal gallbladder and extrahepatic biliary system. Normal spleen. Normal pancreas. Normal bilateral adrenal glands. Moderate atrophy of the right kidney. There is no right renal mass. There are no right renal calculi. There is no right hydronephrosis. Normal visualized right ureter. Mild atrophy of the left kidney. There is no left renal mass. There are no left renal calculi. There is no left hydronephrosis. Normal visualized left ureter. Normal small intestine. The appendix is visualized and appears normal. There is no demonstrated peritoneal fluid. Normal inferior vena cava. Normal retroperitoneum. There is no pelvic mass lesion or lymphadenopathy. There is no pelvic fluid. Unremarkable metallic hardware of the left femur. CT/CTA Abd/Pelvis W/WO Contrast IMPRESSION: Atherosclerosis with multifocal stenosis. Reading [facility]
[2024-11-18 08:03] VITALS: BP 189/53; PULSE 74; RESP 20; TEMP 36.4; O2SAT 99; BMI 24.3
[2024-11-18] MEDS: Sodium Bicarbonate 150 MEQ in Dextrose 5%-Water (1000mL Bag) 1,000 ML 231 MEQ IV (08:06)
[2024-11-18 08:25] LABS: CREATININE FINGERSTICK 2.3 mg/dL (0.70-1.30)
[2024-11-18 08:35] VITALS: BP 161/54; PULSE 65; RESP 18; O2SAT 98
[2024-11-18 09:05] VITALS: BP 151/62; PULSE 61; RESP 18; O2SAT 98
[2024-11-18 10:04] VITALS: BP 155/56; PULSE 62; RESP 16; TEMP 36.1; O2SAT 93; BMI 24.3
[2024-11-18 14:14] VITALS: BP 145/60; PULSE 70
== END 2024-11-18 23:59 | disposition home or self-care (01) ==
LOC: CT 07:49
PROVIDERS: PCP Family Medicine; Referring Provider Surgery Vascular Surgery; Visit Provider Surgery Vascular Surgery
DX: I77.1 Stricture of artery (principal); K51.90 Ulcerative colitis, unspecified, without complications; I10 Essential (primary) hypertension; I73.9 Peripheral vascular disease, unspecified; S81.802S Unspecified open wound, left lower leg, sequela; I65.23 Occlusion and stenosis of bilateral carotid arteries; E78.00 Pure hypercholesterolemia, unspecified; D64.9 Anemia, unspecified
CPT/HCPCS: 96365; 96366 ×5; 74174; Q9967

== ENCOUNTER → 2024-11-29 | Outpatient (CLI) | payer MEDICARE, OTHER, SELFPAY ==
[2024-11-29 18:18] LABS: Microalbumin:Creatinine Ratio 1639.6 mg/g CRE
[2024-11-29 18:52] LABS: Magnesium 2.2 mg/dL (1.5-2.2)
[2024-11-29 20:11] LABS: ALB/GLOB Ratio 2.2 RATIO (0.9-2.4); AST(SGOT) 16 U/L (<=37); Alanine Aminotransfer ALT/SGPT 8 U/L (<=46); Albumin, Serum 4.5 g/dL (3.4-4.8); Alkaline Phosphatase 73 U/L (40-129); Anion Gap 12 (5-15); BUN 49 mg/dL (4-19); BUN/Creat Ratio 20.2 RATIO (10-20); Calcium,Total 9.2 mg/dL (7.6-11.0); Carbon Dioxide 19.5 mmol/L (21.0-32.0); Chloride 106 mmol/L (98-108); Creatinine, Serum 2.42 mg/dL (0.70-1.20); EST Glomerular Filtration Rate 26 (>60); Globulin 2.1 g/dL (2.2-4.2); Glucose 111 mg/dL (70-99); Protein, Total 6.6 g/dL (5.9-8.4); Sodium Level 138 mmol/L (133-145); Total Bilirubin 0.35 mg/dL (0.00-1.30)
== END | disposition home or self-care (01) ==
LOC: MTLAB 14:36
PROVIDERS: PCP Family Medicine; Referring Provider Family Medicine; Visit Provider Family Medicine
DX: N18.4 Chronic kidney disease, stage 4 (severe) (principal)
CPT/HCPCS: 36415; 80053; 82043; 82570; 83735

== ENCOUNTER → 2024-12-06 | Outpatient (CLI) | payer MEDICARE, OTHER, SELFPAY ==
[2024-12-06 18:35] LABS: Anion Gap 16 (5-15); BUN 51 mg/dL (4-19); BUN/Creat Ratio 19.8 RATIO (10-20); Calcium,Total 9.5 mg/dL (7.6-11.0); Carbon Dioxide 21.4 mmol/L (21.0-32.0); Chloride 102 mmol/L (98-108); Creatinine, Serum 2.59 mg/dL (0.70-1.20); EST Glomerular Filtration Rate 24 (>60); Glucose 160 mg/dL (70-99); Potassium 4.3 mmol/L (3.3-5.1); Sodium Level 139 mmol/L (133-145)
== END | disposition home or self-care (01) ==
LOC: MTLAB 16:11
PROVIDERS: PCP Family Medicine; Referring Provider Family Medicine; Visit Provider Family Medicine
DX: E87.5 Hyperkalemia (principal)
CPT/HCPCS: 36415; 80048

== ENCOUNTER 2024-12-27 08:27 | Day surgery (SDC) | payer MEDICARE, OTHER, SELFPAY ==
--- NOTE | 2024-12-14 10:22 | PAT.ANESEVAL ---
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 When Was Last Pacemaker Check QUESTION #4 FULL TEXT: You/Your Family Experience fever (hyperthermia) with Anesthesia Last Oral Intake Last Oral intake: Last Oral Intake NPO since Meds taken in AM with sips of water? Meds patient instructed to take am of surgery PONV PONV - water regulator and valve repairer: PONV - water regulator and valve repairer Female No 12/14/24 09:04 HX of Motion Sickness No 12/14/24 09:04 HX of N/V After Surgery No 12/14/24 09:04 Non-Smoker Yes 12/14/24 09:04 Duration of Surgery greater Yes 12/14/24 09:04 than 60 minutes Number of Risk Factors 2 12/14/24 09:04 PONV Score Moderate Risk 12/14/24 09:04 Height & Weight Height & Weight: Anesthesia: Height & Weight Height 5 ft 10 in 12/10/24 13:18 Respiratory Assessment Respiratory Assessment - water regulator and valve repairer: Respiratory Tract Infection Hx - water regulator and valve repairer Hx Respiratory Tract Infection No 12/14/24 09:04 STOP Sleep Apnea STOP Sleep Apnea - water regulator and valve repairer: STOP Sleep Apnea - water regulator and valve repairer Hx Hypertension No 12/14/24 09:04 Hx Sleep Apnea Yes: IN PAST WHEN PT WAS 230 12/14/24 09:04 LBS CPAP No 12/14/24 09:04 BIPAP No 12/14/24 09:04 Do you snore loudly (louder than talking or can be heard Do you often feel tired/ fatigued/ sleepy during daytime? Has anyone observed you stop breathing during sleep? STOP Results Positive 12/14/24 09:04 QUESTION #5 FULL TEXT : Do you snore loudly (louder than talking or can be heard through closed doors)? 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 Specify any problems Hx of Preganancy in last 3 N/A 12/14/24 09:04 Months Nurse Filling Out Transfusion [email or web address] 12/14/24 09:04 & Questions: Date: 12/14/24 12/14/24 09:04 Time: 09:09 12/14/24 09:04 Patient unable to answer at this time (ie. confused, unrespo /Reproduction History /Reproductive History - water regulator and valve repairer: /Reproductive Hx- water regulator and valve repairer Hx Now No 12/14/24 09:04 Gestational Age (in weeks): EDC: Hx Hx Para Hx Section SAB No 12/14/24 09:04 [facility] Medical History (Updated 12/14/24 @ 09:39 by Jameel Macias) History of Holter monitoring H/O transesophageal echocardiography (ROSI) for monitoring Multiple excoriations Anemia Pulmonary hypertension Severe sinus bradycardia CKD (chronic kidney disease) stage 3, GFR 30-59 ml/min General weakness Debility Hyperkalemia Palpitations History of edema Elevated troponin Fever Mitral valve insufficiency PAD (peripheral artery disease) Pancytopenia History of right inguinal hernia History of umbilical hernia Wears hearing aid Wears glasses Alcohol use Thyroid disease Walker as ambulation aid High cholesterol Injury of head and neck Dietary restriction History of GI bleed Hx of ulcerative colitis History of stress test History of echocardiogram History of transesophageal echocardiography (ROSI) Cardiology follow-up encounter History of atrial fibrillation Emphysema of lung Hyperlipidemia Hypertension Atrial fibrillation Hypertension Former smoker History of cardioversion (~05/09/20) Subclavian artery stenosis, left (~10/15/19) Essential hypertension Thrombocytopenia Upper GI bleed Atherosclerotic heart disease of [place] coronary artery without angina pectoris Premature atrial contractions 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) use 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 Hematemesis/vomiting blood Upper GI bleed History of coronary artery disease Thrombocytopenia Ulcerative colitis Right carotid bruit Hypercholesterolemia Home Medications ?Medication ?Instructions ?Recorded ?Last Taken ?Type ferrous sulfate 325 mg (65 mg 325 mg PO DAILY vitamin 05/28/15 05/09/20 History iron) tablet vitamin B complex 1 each PO DAILY vitamin 02/07/16 05/09/20 History aspirin 81 mg tablet,delayed 81 mg PO MO 04/14/23 Unknown History release zinc acetate 50 mg (zinc) capsule 50 mg PO DAILY 09/29/23 Unknown History atorvastatin 40 mg tablet (Lipitor) 40 mg PO DAILY cholesterol #90 tabs 03/08/24 Unknown Rx hydralazine 50 mg tablet 100 mg (2 x 50 mg) PO BID #180 tabs 04/09/24 Unknown Rx amlodipine 10 mg tablet 10 mg PO DAILY #90 tabs 07/16/24 Unknown Rx lisinopril 20 mg tablet 20 mg PO DAILY #90 tabs 07/16/24 Unknown Rx Held on 11/08/24. Instructions: Order Changed levothyroxine 50 mcg tablet 50 mcg PO DAILY thyroid 10/01/24 Unknown History furosemide 20 mg tablet (Lasix) 20 mg PO QAM short term d/t 12/10/24 Unknown History potassium Allergy/AdvReac Type Severity Reaction Status Date / Time hydrochlorothiazide Allergy Severe Rash Verified 12/14/24 08:59 furosemide (From Lasix) Allergy Severe Verified 12/14/24 08:59 Rash Itchy lovastatin (From Mevacor) Allergy Rash Verified 12/14/24 08:59 Family History Father CAD (coronary artery disease) Mother Cancer breast Surgical History S/P umbilical hernia repair, follow-up exam S/P right inguinal hernia repair History of umbilical hernia repair History of right inguinal hernia repair Hx of colonoscopy History of cardiac catheterization Hx of heart bypass surgery Hx of esophagogastroduodenoscopy Hx of CABG History of hand surgery History of vasectomy Aortocoronary bypass status (~02/12/17) Status post insertion of drug-eluting stent into right coronary artery for coronary artery disease (~04/2009) Social History adopted: No household members: spouse housing: house number of children: 2 current occupational status: retired Smoking Status: Former smoker Tobacco: How many years used: 50 (stopped about 10 yrs ago) how long ago did patient quit smokin years ago alcohol intake: current alcohol intake frequency: 3 or more drinks per day Alcohol type: beer, wine and hard liquor substance use type: does not use caffeine: Yes Type: coffee Number of servings: 2 Audit: Pertinent Findings HISTORY of Pertinent Findings History of Pertinent Findings: Amaury Arreola is an 84-year-old male who presents to the office today for follow-up for monitoring of his cardiovascular disease. Patient has a history of coronary artery disease status post drug-eluting stent to the proximal/mid RCA April 2009, CABG x2- ZARAGOZA to LAD, Aorto post descending coronary artery to revers SVG 02/12/17, paroxysmal atrial fibrillation/flutter, bilateral carotid artery disease, hypertension, and hyperlipidemia. Patient underwent cardioversion in April 2020 and ROSI cardioversion during his hospitalization at [facility] in September 2020. Pertinent Findings EKG Perinent findings: EKG 10/2024: NSR, LAD Echo (EF%) pertinent findings: Echocardiogram 11/29/2022 Interpretation Summary The study was technically difficult. Moderate concentric left ventricular hypertrophy. The left ventricular ejection fraction is 60 %. Diastolic function is indeterminate. The left atrium is severely enlarged. 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 Moderate (2+) tricuspid valve insufficiency. Severe pulmonary hypertension. The right atrium is moderately enlarged. Additional pertinent findings: 10/2024: Severe stenosis R ICA, moderate stenosis L ICA, Celiac, SMA, and LELAND with severe stenosis noted. 14 Day Event Monitor 07/11/2023 Preliminary Findings -The predominant rhythm was sinus. -The maximum HR was 92 BPM, the minimum HR was 42 BPM, and the average HR was 65 BPM. -There were 7,427 VE beats with a burden of <1% -There were 35, 180 SVE beats with a burden of 4% -There were 2 patient triggers Patient has a history of atrial fibrillation that originally occurred with his bypass graft surgery and recurrence with empyema. Previous 14-day Holter monitor with predominant sinus rhythm. Patient was intolerant to amiodarone and carvedilol in the past secondary to bradycardia. Patient is not currently on anticoagulation secondary to acute blood loss anemia and iron deficiency anemia. Patient reports only symptom he notices when in atrial fibrillation is fatigue and denies any recent episodes of this. On exam today, patient appears to be in normal sinus rhythm. No acute changes today. Recommendation Anesthesia Recommendation Anesthesia recommendation: F/U recommended (Please obtain cardiac clearance. GFR and creatinine seem stable )
--- NOTE | 2024-12-16 13:07 | EKG12_ITS ---
Test Reason : PREOP Blood Pressure : */* mmHG Vent. Rate : 72 BPM Atrial Rate : 72 BPM P-R Int : 180 ms QRS Dur : 110 ms QT Int : 408 ms P-R-T Axes : 18 10 22 degrees QTcB Int : 446 ms Normal sinus rhythm Septal infarct , age undetermined Inferior infarct (cited on or before 24-Jun-2023) Abnormal ECG Confirmed by KARIN WATSON, DURAN ([id number]), editor sound WENDI TIDWELL ([id number]) on 12/17/2024 1:05:28 PM Referred By: Forrest Umaña Confirmed By: DURAN FRAZIER MD
[2024-12-16 13:56] LABS: Prothrombin Time (Protime)PT. 13.8 SECONDS (11.7-14.9)
[2024-12-16 13:57] LABS: Partial Thromboplast Time 27.8 Seconds (24.1-36.2)
[2024-12-16 14:12] LABS: AST(SGOT) 19 U/L (<=37); Alanine Aminotransfer ALT/SGPT 10 U/L (<=46); Albumin, Serum 4.4 g/dL (3.4-4.8); Alkaline Phosphatase 81 U/L (40-129); Bilirubin, Direct 0.23 mg/dL (0.00-0.30); Protein, Total 6.4 g/dL (5.9-8.4); Thyroid Stim Hormone (TSH) 0.746 uIU/mL (0.300-4.200); Total Bilirubin 0.47 mg/dL (0.00-1.30)
[2024-12-16 14:32] LABS: Anion Gap 13 (5-15); BUN 42 mg/dL (4-19); BUN/Creat Ratio 19.7 RATIO (10-20); Carbon Dioxide 21.6 mmol/L (21.0-32.0); Chloride 105 mmol/L (98-108); Creatinine, Serum 2.13 mg/dL (0.70-1.20); EST Glomerular Filtration Rate 30 (>60); Glucose 115 mg/dL (70-99); Potassium 4.6 mmol/L (3.3-5.1); Sodium Level 139 mmol/L (133-145)
[2024-12-27] VITALS (10 sets, daily range): BP systolic 111–181; BP diastolic 46–90; PULSE 56–77; RESP 14–18; TEMP 2.2–36.8; O2SAT 92–98; BMI 24.3
[2024-12-27] MEDS: Lactated Ringers 1,000 ML 15 ML IV (09:45)
--- NOTE | 2024-12-27 10:09 | PCM.PRE.AN2 ---
ASA Classification* ASA Classification ASA Classification: 3 Assessment & Plan Anesthesia* Anesthesia Assessment Anesthesia Assessment: Discussed sedation and/or anesthesia options, risks, benefits, and alternatives with patient/parents/legal guardian/POA. Questions invited. The patient/parents/legal guardian/POA seems to understand and agrees to proceed with anesthesia plan. Reviewed the physical assessment, medical history, allergy history and patient home medications list prior to surgery/procedure/anesthetic and documented any changes. Performed airway and anesthesia risk assessments. Anesthesia Type Anesthesia Type: General History Source History Obtained from:: Patient and Chart Anesthesia Focused Assessment* Temperature: 98.3 F Pulse Rate: 77 Blood Pressure: 181/68 Respiratory Rate: 16 Pulse Ox: 98 Oxygen Delivery Method: Room Air Airway Assessment Mouth opens: >3 cm Mallampati Score: IV Teeth Condition: Caps/Crowns (patient has multiple caps and crowns. They are all tight.) Neck Range of motion (ROM): Limited ROM (Slight decrease in extension) Labs Anesthesia Preop lab: CBC WBC 4.5 K/mm3 (4.4-11.0) 11/08/24 16:10 11/08/24 RBC 3.07 M/mm3 (4.6-6.2) L 11/08/24 16:10 11/08/24 Hgb 10.6 g/dL (13.0-16.5) L 11/08/24 16:10 11/08/24 Hct 32.7 % (40-54) L 11/08/24 16:10 11/08/24 Plt Count 123 K/mm3 (150-450) L 11/08/24 16:10 11/08/24 CHEMISTRY Potassium 4.6 mmol/L (3.3-5.1) 12/16/24 13:21 12/16/24 Sodium 139 mmol/L (133-145) 12/16/24 13:21 12/16/24 Magnesium 2.2 mg/dL (1.5-2.2) 11/29/24 14:38 11/29/24 Phosphorus 4.0 mg/dL (2.5-4.9) 06/21/23 05:57 06/21/23 BUN 42 mg/dL (4-19) H 12/16/24 13:21 12/16/24 Creatinine 2.13 mg/dL (0.70-1.20) H 12/16/24 13:21 12/16/24 Glucose 115 mg/dL (70-99) H 12/16/24 13:21 12/16/24 POC Glucose 223 mg/dL (74-106) H 11/08/24 18:29 11/08/24 TSH 0.746 uIU/mL (0.300-4.200) 12/16/24 13:21 12/16/24 COAG PT 13.8 SECONDS (11.7-14.9) 12/16/24 13:21 12/16/24 Pre-Assessment Diagnosis/Proposed Procedure Planned Operative Procedure(s): LEFT ROBOTIC INGUINAL HERNIA WITH MESH Anesthesia History 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 When Was Last Pacemaker Check QUESTION #4 FULL TEXT: You/Your Family Experience fever (hyperthermia) with Anesthesia Last Oral Intake Last Oral intake: Last Oral Intake NPO since 20:00 12/27/24 09:29 Meds taken in AM with sips of Yes 12/27/24 09:29 water? Meds patient instructed to take am of surgery Any additional information?: Yes Meds taken in AM with sips of water?: Yes PONV PONV - photo mask processor: PONV - photo mask processor Female No 12/14/24 09:04 HX of Motion Sickness No 12/14/24 09:04 HX of N/V After Surgery No 12/14/24 09:04 Non-Smoker Yes 12/14/24 09:04 Duration of Surgery greater Yes 12/14/24 09:04 than 60 minutes Number of Risk Factors 2 12/14/24 09:04 PONV Score Moderate Risk 12/14/24 09:04 Height & Weight Height & Weight: Anesthesia: Height & Weight Height 5 ft 10 in 12/27/24 09:29 Weight: 77 kg 12/27/24 09:29 Body Mass Index (BMI) 24.3 12/27/24 09:29 Respiratory Assessment Respiratory Assessment - photo mask processor: Respiratory Tract Infection Hx - photo mask processor Hx Respiratory Tract Infection No 12/14/24 09:04 STOP Sleep Apnea STOP Sleep Apnea - photo mask processor: STOP Sleep Apnea - photo mask processor Hx Hypertension No 12/14/24 09:04 Hx Sleep Apnea Yes: IN PAST WHEN PT WAS 230 12/14/24 09:04 LBS CPAP No 12/14/24 09:04 BIPAP No 12/14/24 09:04 Do you snore loudly (louder than talking or can be heard Do you often feel tired/ fatigued/ sleepy during daytime? Has anyone observed you stop breathing during sleep? STOP Results Positive 12/14/24 09:04 QUESTION #5 FULL TEXT : Do you snore loudly (louder than talking or can be heard through closed doors)? 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 Specify any problems Hx of Preganancy in last 3 N/A 12/14/24 09:04 Months Nurse Filling Out Transfusion [email or web address] 12/14/24 09:04 & Questions: Date: 12/14/24 12/14/24 09:04 Time: 09:09 12/14/24 09:04 Patient unable to answer at this time (ie. confused, unrespo /Reproduction History /Reproductive History - photo mask processor: /Reproductive Hx- photo mask processor Hx Now No 12/14/24 09:04 Gestational Age (in weeks): EDC: Hx Hx Para Hx Section SAB No 12/14/24 09:04 Active Medications Active Medications: Current Medications Generic Name Dose Route Start Last Admin Trade Name Freq PRN Reason Stop Dose Admin Cefazolin Sodium 2 gm/ Sodium 110 mls @ 200 mls/hr 12/27/24 11:10 Chloride IV 12/27/24 11:42 INTRAOP ONE Lactated Ringer's 1,000 mls @ 15 mls/hr 12/27/24 09:15 12/27/24 09:45 IV 15 mls/hr .Q48H RJ Administration PFSH Medical History History of Holter monitoring H/O transesophageal echocardiography (ROSI) for monitoring Multiple excoriations Anemia Pulmonary hypertension Severe sinus bradycardia CKD (chronic kidney disease) stage 3, GFR 30-59 ml/min General weakness Debility Hyperkalemia Palpitations History of edema Elevated troponin Fever Mitral valve insufficiency PAD (peripheral artery disease) Pancytopenia History of right inguinal hernia History of umbilical hernia Wears hearing aid Wears glasses Alcohol use Thyroid disease Walker as ambulation aid High cholesterol Injury of head and neck Dietary restriction History of GI bleed Hx of ulcerative colitis History of stress test History of echocardiogram History of transesophageal echocardiography (ROSI) Cardiology follow-up encounter History of atrial fibrillation Emphysema of lung Hyperlipidemia Hypertension Atrial fibrillation Hypertension Former smoker History of cardioversion (~05/09/20) Subclavian artery stenosis, left (~10/15/19) Essential hypertension Thrombocytopenia Upper GI bleed Atherosclerotic heart disease of [place] coronary artery without angina pectoris Premature atrial contractions Atrial fibrillation and flutter intermediate (current) use 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 Hematemesis/vomiting blood Upper GI bleed History of coronary artery disease Thrombocytopenia Ulcerative colitis Right carotid bruit Hypercholesterolemia Home Medications ?Medication ?Instructions ?Recorded ?Last Taken ?Type ferrous sulfate 325 mg (65 mg 325 mg PO DAILY vitamin 05/28/15 12/26/24 History iron) tablet vitamin B complex 1 each PO DAILY vitamin 02/07/16 12/26/24 History aspirin 81 mg tablet,delayed 81 mg PO MO 04/14/23 12/20/24 History release zinc acetate 50 mg (zinc) capsule 50 mg PO DAILY 09/29/23 12/26/24 History atorvastatin 40 mg tablet (Lipitor) 40 mg PO DAILY cholesterol #90 tabs 03/08/24 12/26/24 Rx hydralazine 50 mg tablet 100 mg (2 x 50 mg) PO BID #180 tabs 04/09/24 12/27/24 Rx amlodipine 10 mg tablet 10 mg PO DAILY #90 tabs 07/16/24 12/27/24 Rx lisinopril 20 mg tablet 20 mg PO DAILY #90 tabs 07/16/24 Unknown Rx Held on 11/08/24. Instructions: Order Changed levothyroxine 50 mcg tablet 50 mcg PO DAILY thyroid 10/01/24 12/26/24 History furosemide 20 mg tablet (Lasix) 20 mg PO QAM short term d/t 12/10/24 12/24/24 History potassium Allergy/AdvReac Type Severity Reaction Status Date / Time hydrochlorothiazide Allergy Severe Rash Verified 12/27/24 09:27 furosemide (From Lasix) Allergy Severe Verified 12/27/24 09:27 Rash Itchy lovastatin (From Mevacor) Allergy Rash Verified 12/27/24 09:27 Family History Father CAD (coronary artery disease) Mother Cancer breast Surgical History S/P umbilical hernia repair, follow-up exam S/P right inguinal hernia repair History of umbilical hernia repair History of right inguinal hernia repair Hx of colonoscopy History of cardiac catheterization Hx of heart bypass surgery Hx of esophagogastroduodenoscopy Hx of CABG History of hand surgery History of vasectomy Aortocoronary bypass status (~02/12/17) Status post insertion of drug-eluting stent into right coronary artery for coronary artery disease (~04/2009) Social History adopted: No household members: spouse housing: house number of children: 2 current occupational status: retired Smoking Status: Former smoker Tobacco: How many years used: 50 (stopped about 10 yrs ago) how long ago did patient quit smokin years ago alcohol intake: current alcohol intake frequency: 3 or more drinks per day Alcohol type: beer, wine and hard liquor substance use type: does not use caffeine: Yes Type: coffee Number of servings: 2 Review of Systems (Anesthesia) ROS Narrative System reviewed and no additional complaints, except as documented.
--- NOTE | 2024-12-27 10:11 | PCM.HP.BLA ---
History and Physical Date of Admission: 12/27/24 Intake Vital Signs 11/18/2509:04 12/10/2512:18 Height 5 ft 10 in 5 ft 10 in Weight: 163 lb BMI 23.3 BP 161/75 H Blood Pressure Location Rt brachial Position Sitting Respiration 17 Pulse 84 Pulse Source Monitor Pulse Oximetry (%) 97 Oxygen Delivery Method room air Intake Visit Reasons: SELF REFERRED INGUINAL HERNIA Chief Complaint: self referred inguinal hernia-left Is patient in pain?: No Allergies hydrochlorothiazide Allergy (Severe, Verified 12/10/24 13:19) Rashfurosemide (From Lasix) Allergy (Verified 12/10/24 13:19) Severe Rash Itchylovastatin (From Mevacor) Allergy (Verified 12/10/24 13:19) Rash Medications ?Medication ?Instructions ?Recorded ?Confirmed ?Type ferrous sulfate 325 mg (65 mg 325 mg PO DAILY vitamin 05/28/15 12/10/24 History iron) tablet vitamin B complex 1 each PO DAILY vitamin 02/07/16 12/10/24 History acetaminophen 500 mg tablet 1,000 mg (2 x 500 mg) PO Q6H PRN 12/19/22 12/10/24 Rx PRN Pain Score 1-5 #0 tabs aspirin 81 mg tablet,delayed 81 mg PO DAILY 04/14/23 12/10/24 History release zinc acetate 50 mg (zinc) capsule 50 mg PO DAILY 09/29/23 12/10/24 History atorvastatin 40 mg tablet (Lipitor) 40 mg PO DAILY cholesterol #90 tabs 03/08/24 12/10/24 Rx hydralazine 50 mg tablet 100 mg (2 x 50 mg) PO BID #180 tabs 04/09/24 12/10/24 Rx amlodipine 10 mg tablet 10 mg PO DAILY #90 tabs 07/16/24 12/10/24 Rx lisinopril 20 mg tablet 20 mg PO DAILY #90 tabs 07/16/24 12/10/24 Rx Held on 11/08/24. Instructions: Order Changed levothyroxine 50 mcg tablet 50 mcg PO DAILY thyroid 10/01/24 12/10/24 History furosemide 20 mg tablet (Lasix) 20 mg PO QAM short term d/t 12/10/24 12/10/24 History potassium Have you fallen in the past year?: No PFSH Medical History Multiple excoriations Anemia Pulmonary hypertension Severe sinus bradycardia CKD (chronic kidney disease) stage 3, GFR 30-59 ml/min General weakness Debility Hyperkalemia Palpitations History of edema Elevated troponin Fever Mitral valve insufficiency PAD (peripheral artery disease) Pancytopenia History of right inguinal hernia History of umbilical hernia Wears hearing aid Wears glasses Alcohol use Thyroid disease Walker as ambulation aid High cholesterol Injury of head and neck Dietary restriction History of GI bleed Hx of ulcerative colitis History of stress test History of echocardiogram History of transesophageal echocardiography (ROSI) Cardiology follow-up encounter History of atrial fibrillation Emphysema of lung Hyperlipidemia Hypertension Atrial fibrillation Hypertension Former smoker History of cardioversion (~05/09/20) Subclavian artery stenosis, left (~10/15/19) Essential hypertension Thrombocytopenia Upper GI bleed Atherosclerotic heart disease of kaw coronary artery without angina pectoris Premature atrial contractions Atrial fibrillation and flutter half-way (current) use 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 Hematemesis/vomiting blood Upper GI bleed History of coronary artery disease Thrombocytopenia Ulcerative colitis Right carotid bruit Hypercholesterolemia Surgical History S/P umbilical hernia repair, follow-up exam S/P right inguinal hernia repair History of umbilical hernia repair History of right inguinal hernia repair Hx of colonoscopy History of cardiac catheterization Hx of heart bypass surgery Hx of esophagogastroduodenoscopy Hx of CABG History of hand surgery History of vasectomy Aortocoronary bypass status (~02/12/17) Status post insertion of drug-eluting stent into right coronary artery for coronary artery disease (~04/2009) Family History Father CAD (coronary artery disease)Mother Cancer breast Social History adopted: No household members: spouse housing: house number of children: 2 current occupational status: retired Smoking Status: Former smoker Tobacco: How many years used: 50 (stopped about 10 yrs ago) how long ago did patient quit smokin years ago alcohol intake: current alcohol intake frequency: 3 or more drinks per day Alcohol type: beer, wine and hard liquor substance use type: does not use caffeine: Yes Type: coffee Number of servings: 2 HPI HPI HPI: Patient is an 84-year-old male here with a left inguinal hernia. The patient has a history of a right inguinal hernia repair in the past. He has no issues on the right side. He is having bulge on the left which does reduce. He is not having any issues going to the bathroom. ROS General General: No weight change, appetite, fatigue, colon cancer, breast cancer or weakness HEENT HEENT: Yes eye surgery; No difficulty swallowing, eye injury, swollen glands or hoarseness Endo Endocrine: Yes thyroid disease; No diabetes mellitus, thyroid cancer, Hair loss, heat intolerance or cold intolerance Skin Skin: No rash or changing moles Musc Musculoskeletal: Yes arthritis; No back problems, rheumatoid arthritis, gout or joint pain Cardio Cardiovascular: Yes heart disease, atrial fibrillation and high blood pressure; No murmur, pacemaker, heart attack, heart stent, palpitations, shortness of breath with exertion or chest pain Psych Psychiatric: No depression, anxiety or hearing voices Resp Respiratory: No shortness of breath, No sleep apnea, No cough, No COPD, No asthma, No emphysema and No wheezing Gastro Gastrointestinal: No abdominal pain, No nausea or vomiting, No diarrhea, No constipation, No blood in stool, No acid reflux, No hemorrhoids, No ulcers, No gallbladder problem and No black,tarry stools Tye Hematologic: No blood thinners, No blood disorders, No bleeding, Yes anemia and No blood clots Neuro Neurologic: No system reviewed and no additional complaints, except as documented, No as per HPI, No abnormal gait, No abnormal hearing, No abnormal movements, No abnormal speech, No behavioral changes, No burning sensations, No confusion, No convulsions, No disequilibrium, No dizziness, No localized weakness, No frequent falls, No headache(s), No lack of coordination, No loss of vision, No memory loss, Yes numbness, No other visual disturbances, No radicular pain, No restless legs, No sensory deficit, No syncope, Yes tingling, No tremor(s), No weakness and No other Exam Const General: cooperative Orientation: alert and oriented x3 HENMT Head: normal to inspection Neck Neck: normal visual inspection and full ROM Chest Chest palpation & inspection: normal inspection of the chest Resp Effort & Inspection: normal respiratory effort Auscultation: clear to auscultation bilaterally Cardio Rate: regular rate Rhythm: regular rhythm GI Inspection: non-distended Palpation: soft, hernia indirect inguinal on the left and nontender Skin General: no rashes or lesions noted Neuro General: patient alert and patient oriented x3 Extrem General: full ROM Psych Appearance: grossly normal Mental Status: mental status grossly normal Assessment and Plan Assessment and Plan (1) Left inguinal hernia: Status: Acute Plan: Patient has left inguinal hernia he would like repaired. It appears large. He had a recent CT scan which did show that it contained colon. The patient reports no issues defecating. Plan for a robotic assisted laparoscopic left inguinal hernia repair with mesh. I discussed the procedure in detail as well as the risks. I discussed the risks of bleeding, infection, injury other organs such as the blood supply to the testicle or the testicle itself or the bladder or ureter. Patient understands the risks and is willing to proceed. I also discussed mesh placement with the patient in detail. Forrest Umaña MD Pager: [facility] [address] [place] [address] [address] [place] [address] Office: I have examined the patient and the H&P has been reviewed. There are no clinical changes since date of exam.
[2024-12-27] MEDS: Cefazolin 2 GM in 0.9% Normal Saline (100mL Bag) 100 ML IV (11:00)
[2024-12-27] MEDS: Bupivacaine Mpf 0.5% 30 ML VIAL (11:37)
--- NOTE | 2024-12-27 11:44 | OP.PCM_ITS ---
Operative Report (Standard) Operative Information Date of Procedure: 12/27/24 Pre-Operative Diagnosis: Left inguinal hernia Post-Operative Diagnosis: Left inguinal hernia Surgery/Procedure Performed: Robotic assisted laparoscopic left inguinal hernia repair with mesh production tech: Yes Organ Builder: Jesu Pacheco Tasks completed by assistant community manager: Opening & closing Type of Anesthesia: General/Regional RN Documented Start/Stop Times: Operation Date: 12/27/24 11:10 Case Time Into Pre-Op 12/27/24 09:02 Anesthesia Start 12/27/24 10:55 Into Room 12/27/24 10:55 Procedure Start 12/27/24 11:11 Procedure Start Time: 11:11 Procedure Stop Time: 11:55 Select all DRAINS/GRAFTS/IMPLANTS that apply: Implanted device Implanted device details: ProGrip mesh Estimated Blood Loss: 5 Specimen collected: No Description of surgery: Patient was brought back to the operating room and general anesthesia was induced. The abdomen was prepped and draped in usual sterile fashion. A midline incision was made superior to the umbilicus and deepened to the fascia which was elevated and a Veress needle was placed into the abdomen. A drop test was performed. A Veress needle was used to insufflate the abdomen to 15 mmHg. Veress needle was removed and a port was placed. The abdomen was inspected for injuries from entry and there were none. Patient was placed in Trendelenburg position and under direct supervision an 8 mm port was placed in the left lateral sidewall and right lateral sidewall. Robot was then docked. Using electrocautery scissors an incision was made in the peritoneum in the left lower quadrant. Dissection was carried inferiorly. The sigmoid colon was in the hernia. It was reduced and the peritoneum hernia sac was reduced as well. Once the hernia sac was completely reduced the dissection was carried posteriorly. Next ProGrip mesh was placed in the left lower quadrant and unfolded over the hernia defect completely covering the defect with good coverage. The peritoneum was then reapproximated over the mesh using a running 3 OV lock suture. The peritoneum completely cover the mesh to the end of the procedure. The instruments were removed and the abdomen was allowed to desufflate. The ports were removed. The skin incisions were injected with local anesthetic and closed with interrupted 4-0 Monocryl sutures and Steri-Strips and bandages were applied. Patient was awoken and brought to the PACU in stable condition and tolerated the procedure well. Surgical Findings: Indirect left inguinal hernia containing colon Complications Complications: No Admit VTE Documentation VTE Mechan Device Prophylaxis: SCD's
--- NOTE | 2024-12-27 11:48 | DCINST_ITS ---
Discharge Instructions Procedure Hernia Diet Discharge Diet: Light diet - advance as tolerated Activity Discharge Activity: May Not Drive (for 2-3 days or while taking narcotic pain meds.) and May Shower (with the bandage in place 1-2 days after surgery.) Lifting Restrictions: 20 pounds for 6 weeks. Additional Activity Instructions:: Climbing stairs is fine, walking is encouraged. Sitting in bed may be uncomfortable. Sitting up using your lateral muscles (sitting up sideways) is usually more comfortable. Do not drive, work heavy equipment of sign legal documents for 24 hours. If your hernia repair was an inguinal repair, you may have scrotal swelling, an ice pack and/or athletic support can provide more comfort. Pain medications may cause nausea, you should typically eat light foods as you take your pain medications. Pain medications may also cause constipation. If you have difficulty with this, discuss with your doctor. Alternate ibuprofen and Tylenol for pain control, oxycodone for breakthrough pain Resume aspirin Friday Dressing / Incision Call your doctor if your incision/area has: Continuous Slow Oozing, Sudden Increased Bleeding, Increased Pain/ Swelling, Increased Redness and Foul Smelling Discharge Call your doctor if you observe: Fever of 101 or Higher Suture Line Care: Avoid Pulling/Pushing and Avoid Pinching/Bending Remove Dressing in: 2 days (Remove clear bandages in 2 days, remove Steri-Strips in 7 to 10 days.) Cleanse incision/area with: Soap & Water Follow Up Care Please Follow Up With: Forrest Umaña MD When: Please call to schedule 2 week follow up appointment. [phone] Test Results: Test results from this visit will be discussed in further detail at your follow- up appointment, if applicable. Discharge Plan Admission Attending Provider: Forrest Umaña Primary Care Provider: Jakob Jiménez Instructions Print Language: Albanian Discharge Orders/Prescriptions Prescriptions: New oxycodone 5 mg Tablet 5 - 10 mg PO Q4H PRN PRN (Reason: Pain Score 4-10) 5 Days Qty: 10 0RF No Action aspirin 81 mg tablet,delayed release (DR/EC) 81 mg PO MO zinc acetate 50 mg (zinc) capsule 50 mg PO DAILY furosemide [Lasix] 20 mg tablet 20 mg PO QAM ferrous sulfate 325 MG tablet 325 mg PO DAILY Patient Comments: Iron supplement vitamin B complex 1 EACH capsule 1 each PO DAILY Patient Comments: Vitamin supplement atorvastatin [Lipitor] 40 mg tablet 40 mg PO DAILY Qty: 90 3RF hydralazine 50 mg tablet 100 mg PO BID Qty: 180 3RF amlodipine 10 mg tablet 10 mg PO DAILY Qty: 90 3RF lisinopril 20 mg tablet 20 mg PO DAILY Qty: 90 3RF levothyroxine 50 mcg tablet 50 mcg PO DAILY Other Ambulatory Orders: 12 Lead EKG (Routine) Timeframe: 20241216 Location: None Selected Ordered By: Dr. River Hamm Referrals / Follow Up: Jakob Jiménez MD [Primary Care Provider] - Disposition Disposition (needs filled in before D/C Order can be placed): Home, Self Care
--- NOTE | 2024-12-27 12:13 | PCM.POST.ANE ---
Anesthesia: Postop Eval I Current Vital Signs Temperature: 36 F Pulse Rate: 77 Blood Pressure: 111/61 Respiratory Rate: 14 Pulse Ox: 97 Assessment Airway patent: Yes Spontaneous unlabored respirations: Yes nausea: No Vomiting: No Anesthesia Complication: No Fluid Hydration Crystalloid volume administer (ml): 800 Total IV fluid infused: 800 Progress Note Anesthesia document: Postop Eval 1 completed: Yes
[2024-12-27] MEDS: Acetaminophen 325 MG Tablet 650 MG PO (13:09)
--- NOTE | 2024-12-27 16:41 | POSTOPAN2_ITS ---
Anesthesia Postop Eval I Sum Postop Eval Completion status Anesthesia document: Postop Eval 1 completed: Yes Anesthesia Postop Eval I Summary Anesthesia Postop Eval I Summary: Anesthesia Postop Eval I: Assessment Summary Airway patent Yes 12/27/24 12:13 [email or web address] [email or web address] Spontaneous unlabored Yes 12/27/24 12:13 [email or web address] respirations Mental status nausea No 12/27/24 12:13 [email or web address] Vomiting No 12/27/24 12:13 [email or web address] Anesthesia Postop Eval I: Fluid Summary Crystalloid volume administer 800 12/27/24 12:13 [email or web address] (ml) Colloids volume administered ( ml) Blood Product volume administered (ml) Total IV fluid infused 800 12/27/24 12:13 [email or web address] Anesthesia Postop Eval I: Summary Notes Anesthesia Complication No 12/27/24 12:13 [email or web address] Anesthesia Complication Comment: Post-operative progress note Anesthesia: Postop Eval II Evaluation Mental status: Awake Pain Level: 1 nausea: No Vomiting: No
--- NOTE | 2024-12-27 16:41 | PCM.POSTANE2 ---
Anesthesia Postop Eval I Sum Postop Eval Completion status Anesthesia document: Postop Eval 1 completed: Yes Anesthesia Postop Eval I Summary Anesthesia Postop Eval I Summary: Anesthesia Postop Eval I: Assessment Summary Airway patent Yes 12/27/24 12:13 [email or web address] Spontaneous unlabored Yes 12/27/24 12:13 [email or web address] respirations Mental status nausea No 12/27/24 12:13 [email or web address] Vomiting No 12/27/24 12:13 [email or web address] Anesthesia Postop Eval I: Fluid Summary Crystalloid volume administer 800 12/27/24 12:13 [email or web address] (ml) Colloids volume administered ( ml) Blood Product volume administered (ml) Total IV fluid infused 800 12/27/24 12:13 [email or web address] Anesthesia Postop Eval I: Summary Notes Anesthesia Complication No 12/27/24 12:13 [email or web address] Anesthesia Complication Comment: Post-operative progress note Anesthesia: Postop Eval II Evaluation Mental status: Awake Pain Level: 1 nausea: No Vomiting: No
== END 2024-12-27 13:40 | disposition home or self-care (01) ==
LOC: SDC 08:29 → AC 08:30
PROVIDERS: Student in an Organized Health Care Education/Training Program; PCP Family Medicine; Referring Provider Surgery; Visit Provider Surgery
PROC: 0YQ64ZZ Repair Left Inguinal Region, Percutaneous Endoscopic Approach (ICD-10-PCS; CPT 49650; principal; 2024-12-27 10:50)
DX: K40.90 Unilateral inguinal hernia, without obstruction or gangrene, not specified as recurrent (principal); I48.91 Unspecified atrial fibrillation; I10 Essential (primary) hypertension; I25.10 Atherosclerotic heart disease of native coronary artery without angina pectoris; E07.9 Disorder of thyroid, unspecified; D64.9 Anemia, unspecified; E78.00 Pure hypercholesterolemia, unspecified; Z95.1 Presence of aortocoronary bypass graft; Z87.19 Personal history of other diseases of the digestive system; Z79.82 Long term (current) use of aspirin; Z79.890 Hormone replacement therapy; Z79.899 Other long term (current) drug therapy; Z87.891 Personal history of nicotine dependence
CPT/HCPCS: 49650; S2900; 00840; 36415; 80048; 80076; 84443; 85610; 85730; 93005; C1781; J2405

== ENCOUNTER → 2025-02-15 | Outpatient (CLI) | payer MEDICARE, OTHER, SELFPAY ==
[2025-02-15 18:19] LABS: Hematocrit 32.2 % (40-54); Hemoglobin 10.6 g/dL (13.0-16.5); Mean Corp Hgb Conc 32.9 g/dL (32-36); Mean Corpuscular Volume 105.9 fL (80-94); Mean Platelet Vol. 10.1 fl (6.2-12.0); Platelet Count 140 K/mm3 (150-450); RBC Distribution Width CV 13.0 % (11.6-14.6); RBC Distribution Width SD 50.5 fl (35.1-43.9); Red Blood Count 3.04 M/mm3 (4.6-6.2); White Blood Count 4.3 K/mm3 (4.4-11.0)
[2025-02-15 19:39] LABS: Anion Gap 13 (5-15); BUN 45 mg/dL (4-19); BUN/Creat Ratio 20.9 RATIO (10-20); Calcium,Total 9.3 mg/dL (7.6-11.0); Carbon Dioxide 20.6 mmol/L (21.0-32.0); Chloride 107 mmol/L (98-108); Glucose 130 mg/dL (70-99); Magnesium 2.3 mg/dL (1.5-2.2); Potassium 4.8 mmol/L (3.3-5.1)
[2025-02-15 20:08] LABS: Microalbumin,Random Urine 642.0 mg/L (<20 mg/L)
== END | disposition home or self-care (01) ==
LOC: MTLAB 15:37
PROVIDERS: PCP Family Medicine; Referring Provider Family Medicine; Visit Provider Family Medicine
DX: K55.1 Chronic vascular disorders of intestine (principal); N18.4 Chronic kidney disease, stage 4 (severe); E87.5 Hyperkalemia
CPT/HCPCS: 80048; 82043; 83735; 85027

== ENCOUNTER 2025-02-23 06:29 | Day surgery (SDC) | payer MEDICARE, OTHER, SELFPAY ==
[2025-02-22 08:26] VITALS: BMI 23.7
--- OUTSIDE RECORDS SUMMARY | 2025-02-23 06:38 | XMS RPT_ITS | CCD ---
Author Organization [facility] Care Team Providers Care Aquaculture Farmer Name Role Phone Unavailable Primary Care Provider Unavailabl e Dr. Rosa Maria Santacruz Primary Care Provider Dr. Rosa Maria Santacruz Referring Provider Dr. Mathieu Mcintyre Attending Provider Dr. Rosa Maria Santacruz Primary Care Provider Dr. Rosa Maria Santacruz Referring Provider JUAN J Elizondo Attending Provider Dr. Rosa Maria Santacruz Primary Care Provider Dr. Rosa Maria Santacruz Referring Provider JUAN J Elizondo Attending Provider Dr. Lupe Joe Emergency Provider Dr. Jakob Alexander Admit Provider Dr. Jakob Alexander Attending Provider [phone]([facility])[phone] Jakob Alexander Other Provider Dr. Odette Harman Attending Provider Dr. Sammie Castaneda Attending Provider Dr. Sammie Castaneda Other Provider Dr. Kvng James Other Provider 1([facility])[phone] Dr. Jesu Hale Chi Admit Provider Dr. Jesu Hale Chi Other Provider Dr. Socorro Oliveros Other Provider Friend, Dr. Villatoro Attending Provider Dr. Rosa Maria Santacruz Primary Care Provider Dr. Rosa Maria Santacruz Referring Provider Donn ARITA, PA Teresa Adame Attending Provider Dr. Lupe Joe Emergency Provider Benjamin, Dr. Robert Admit Provider Dr. Jakob Alexander Attending Provider Benjamin, Dr. Robert Other Provider Kimani, Dr. iPno Attending Provider Leonel, Dr. Cochran Attending Provider Leonel, Dr. Cochran Other Provider Dr. Kvng James Other Provider Geoffrey, Dr. Jesu Forbes Admit Provider Geoffrey, Dr. Jesu Forbes Other Provider Dr. Socorro Oliveros Other Provider Friend, Dr. Villatoro Attending Provider LEOBARDO, ELIDA Leblanc Primary Care Unavailable SERGIO SOFIA Referring Unavailable Moodispajason, Elida F Primary Care Provider MOODISGLORY, ELIDA F Primary Care Unavailable JOÃO SALES Consulting Unavailable JACOB SANCHEZ Attending UnavailBING Verdugo Admitting Unavailable MOODISPAW, ELIDA F Primary Care Unavailable AZUCENA VO Attending Unavailable [facility] Referring Un available Dr. Jesu Hale Chi Referring Provider Friend, Dr. Villatoro Referring Provider Mina ENTERPRISE MANAGER, ENTERPRISE MANAGER-C Honey Attending Provider Dr. Paco Castillo Primary Care Provider Dr. Paco Norman Attending Provider Julian ENTERPRISE MANAGER, ENTERPRISE MANAGERTannerC Karey Attending Provider Dr. Rosa Maria Santacruz Primary Care Provider Dr. Rosa Maria Santacruz Referring Provider Mina ENTERPRISE MANAGER, ENTERPRISE MANAGER-C Honey Attending Provider Unav Dr. Paco Membreno Referring Provider [phone] Dr. Mathieu Mcintyre Attending Provider Dr. Rosa Maria Santacruz Referring Provider Julian ENTERPRISE MANAGER, ENTERPRISE MANAGER-C Karey Attending Provider Dr. Paco Norman Primary Care Provider [phone] Dr. Paco Norman Referring Provider [phone] Dr. Mathieu Mcintyre Attending Provider [phone] JUAN J Walden Attending Provider [phone] Rosa Maria Santacruz Primary Care Provider Dr. Jakob Lim Attending Provider 1([facility])- [phone] Dr. Paco Norman Primary Care Provider [phone] Dr. Paco Norman Primary Care Provider [phone] Dr. Paco Norman Referring Provider [phone] Dr. Mathieu Mcintyre Attending Provider [phone] JUAN J Walden Attending Provider [phone] Rosa Maria Santacruz Primary Care Provider Dr. Jakob Lim Attending Provider [phone] JUAN J Walden Referring Provider [phone] JUAN J Walden Referring Provider [phone] Rosa Maria Santacruz Referring Provider Dr. Jakob Nowak Emergency Provider Dr. Oniel Moulton Admit Provider Dr. Oniel Moulton Attending Provider Dr. Oniel Moulton Other Provider Dr. Lakshmi Carpenter Other Provider Dr. Kvng James Other Provider [phone] was transferred to [facility]. He was evaluated to [facility] in October 2020 for syncope. He was treated for acute GI losses secondary to acute sepsis secondary to acute C. difficile colitis. He was transitioned to TCU. He was evaluated by manager pediatric and Xarelto therapy was discontinued on account of anemia requiring packed red blood cell transfusion in April 2021. He was seen by oncologist, Dr. Mcintyre, and Protonix was discontinued. His hemoglobin slowly improved. In May of 2023, he presented to [facility] ER for increase in palpitations. He was noted to be hyperkalemic. During his hospital stay he was noted to be bradycardiac. His amiodarone and carvedilol were held, and an out patient event monitor was recommended. His 14 day event monitor demonstrated predominant rhythm was sinus. His maximum heart rate was 92 bpm, minimum heart rate 42 bpm, and average heart rate 65 bpm. Ventricular ectopy less than 1%. Supraventricular ectopy 4%. From a cardiac standpoint the patient reports he is doing fairly well in his home environment. He is able to go up and down the stairs without incident. He was diagnosed with iron deficiency anemia with a hemoglobin down in the 7.8 range. He received IV iron infusions and reports that his hemoglobin was 9.9 the last 1 that I can find documented. The patient says he can go up and down a flight of stairs now although he walks with a walker. He is not routinely checking his blood pressure in his home environment. His blood pressure is elevated in office today at 156/72 heart rate is 69 and regular with an occasional ectopic beat. The last EKG I have from October 2023 he was in sinus rhythm with occasional PACs and blocked PACs. 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 Accompanied by: Self Is patient in pain?: No Allergies hydrochlorothiazide Allergy (Severe, Verified 04/05/24 14:51) Rash furosemide (From Lasix) Allergy (Verified 04/05/24 14:51) Severe Rash Itchy lovastatin (From Mevacor) Allergy (Verified 04/05/24 14:51) Rash Medications ???Medication ???Instructions ???Recorded ???Confirmed ???Type ferrous sulfate 325 mg (65 mg 325 mg PO DAILY vitamin 05/28/15 04/05/24 History iron) tablet vitamin B complex 1 each PO DAILY vitamin 02/07/16 04/05/24 History levothyroxine 50 mcg tablet 75 mcg PO DAILY thyroid 06/13/20 04/05/24 History acetaminophen 500 mg tablet 1,000 mg (2 x 500 mg) PO Q6H PRN 12/19/22 04/05/24 Rx PRN Pain Score 1-5 #0 tabs aspirin 81 mg tablet,delayed 81 mg PO DAILY 04/14/23 04/05/24 History release amlodipine 10 mg tablet 10 mg PO DAILY #90 tabs 05/20/23 04/05/24 Rx lisinopril 20 mg tablet 20 mg PO DAILY #90 tabs 05/21/23 04/05/24 Rx zinc acetate 50 mg (zinc) capsule 50 mg PO DAILY 09/29/23 04/05/24 History hydralazine 50 mg tablet 100 mg (2 x 50 mg) PO BID #180 tabs 12/22/23 04/05/24 Rx atorvastatin 40 mg tablet (Lipitor) 40 mg PO DAILY cholesterol #90 tabs 03/08/24 04/05/24 Rx Ejection fraction %: 60 Have you fallen in the past year?: No PFSH Medical History Multiple excoriations Anem (more content not included)... Normal [facility] Absolute lymphocyte countOrd ered By: Hans Armendariz on 11-10-2023 Lymphocytes Auto (Unsp spec) [#/Vol] 0.95 10*3/uL 0.83-4.51 [facility] Absolute lymphocyte countOrd ered By: Mathieu Mcintyre on 11-10-2023 Lymphocytes Auto (Unsp spec) [#/Vol] 0.90 10*3/uL 0.83-4.51 [facility] Alanine aminotransferase (AL T) assayOrdered By: Mathieu Mcintyre on 11-10-2023 ALT [Catalytic activity/Vol] 12 U/L Low 16-61 [facility] Albumin to globulin ratioOrd ered By: Mathieu Melendezisra on 11-10-2023 Albumin/Globulin [Mass ratio] 1.3 {ratio} 0.9-2.4 [facility] Alkaline phosphataseOrdered By: Mathieu Mleendezisra on 11-10-2023 ALP [Catalytic activity/Vol] 113 U/L 45-117 [facility] Automated lymphocyte count a s percentage of total leukocytesOrdered By: Hans Armendariz on 11-10-2023 Lymphocytes/100 WBC Auto (Unsp spec) 18.7 % 19- [facility] Automated lymphocyte count a s percentage of total leukocytesOrdered By: Mathieu Francisco Javier on 11-10-2023 Lymphocytes/100 WBC Auto (Unsp spec) 16.7 % 19-41 [facility] Basophil percentageOrdered B y: Hnas Armendariz on 11-10-2023 Basophils/100 WBC (Bld) 0.8 % 0-1 [facility] Chloride [Moles/Vol] 114 mmol/L 98-107 [facility] Eosinophils/100 WBC (Bld) 6.1 % 0-5 [facility] Glucose [Mass/Vol] 128 mg/dL 74-106 [facility] Comment on above: Fasting Glucose resu lt greater than or equal to 126 mg/dL suggests DIABETES MELLITUS per A.D.A. criteria. Hemoglobin (Bld) [Mass/Vol] 9.9 g/dL 13.0-16.5 [facility] Monocytes/100 WBC (Bld) 10.1 % 0-10 [facility] Neutrophils (Bld) [#/Vol] 3.3 10*3/uL 2.0-7.7 [facility] Neutrophils/100 WBC (Bld) 64.1 % 47-70 [facility] Potassium [Moles/Vol] 5.4 mmol/L 3.5-5.1 [facility] Sodium [Moles/Vol] 140 mmol/L 136-145 [facility] WBC (Bld) [#/Vol] 5.1 10*3/uL 4.4-11.0 [facility] Basophil percentageOrdered B y: Mathieu Mcintyre on 11-10-2023 Chloride [Moles/Vol] 114 mmol/L 98-107 [facility] Glucose [Mass/Vol] 114 mg/dL 74-106 [facility] Comment on above: Fasting Glucose resu lt from 100 to 125 mg/dL suggests IMPAIRED HOMEOSTASIS per A.D.A. criteria. Potassium [Moles/Vol] 6.2 mmol/L 3.5-5.1 [facility] Comment on above: Critical Result(s) C alled at: 15:38:35 11/10/2023 by: Corinne Pennington to Ara. Results read back by same. Sodium [Moles/Vol] 141 mmol/L 136-145 [facility] Basophils/100 WBC (Bld) 0.9 % 0-1 [facility] Bilirubin [Mass/Vol] 0.50 mg/dL 0.20-1.00 [facility] Comment on above: For patients on eltr ombopag therapy, use of Dimension [place] TBIL is not recommended. Eosinophils/100 WBC (Bld) 8.3 % 0-5 [facility] Hemoglobin (Bld) [Mass/Vol] 9.9 g/dL 13.0-16.5 [facility] LDH [Catalytic activity/Vol] 142 U/L 87-241 [facility] Monocytes/100 WBC (Bld) 10.2 % 0-10 [facility] Neutrophils (Bld) [#/Vol] 3.4 10*3/uL 2.0-7.7 [facility] Neutrophils/100 WBC (Bld) 63.5 % 47-70 [facility] Protein [Mass/Vol] 6.5 g/dL 6.4-8.2 [facility] WBC (Bld) [#/Vol] 5.4 10*3/uL 4.4-11.0 [facility] Determination of erythrocyte mean corpuscular volume (MCV)Ordered By: Hans Armendariz on 11-10-2023 MCV (RBC) [Entitic vol] 105.7 fL 80-94 [facility] Determination of erythrocyte mean corpuscular volume (MCV)Ordered By: Mathieu Mcintyre on 11-10-2023 MCV (RBC) [Entitic vol] 106.8 fL 80-94 [facility] Erythrocyte distribution wid th ratioOrdered By: Hans Armendariz on 11-10-2023 Erythrocyte distribution width (RBC) [Ratio] 14.0 % 11.6-14.6 [facility] Erythrocyte distribution wid th ratioOrdered By: Mathieu Mcintyre on 11-10-2023 Erythrocyte distribution width (RBC) [Ratio] 14.0 % 11.6-14.6 [facility] Erythrocyte distribution wid th standard deviationOrdered By: Hans Armendariz on 11-10-2023 Erythrocyte distribution width (RBC) [Entitic vol] 55.3 fL 35.1-43.9 [facility] Erythrocyte distribution wid th standard deviationOrdered By: Mathieu Mcintyre on 11-10-2023 Erythrocyte distribution width (RBC) [Entitic vol] 55.1 fL 35.1-43.9 [facility] Erythrocyte sedimentation ra teOrdered By: Mathieu Mcintyre on 11-10-2023 ESR (Bld) [Velocity] 1 mm/h 0-20 [facility] Hematocrit Auto (Bld) [Volum e fraction]Ordered By: Hans Armendariz on 11-10-2023 Hematocrit (Bld) [Volume fraction] 31.4 % 40-54 [facility] Hematocrit Auto (Bld) [Volum e fraction]Ordered By: Mathieu Mcintyre on 11-10-2023 Hematocrit (Bld) [Volume fraction] 31.5 % 40-54 [facility] Immature granulocytes/100 WB C Auto (Bld)Ordered By: Hans Armendariz on 11-10-2023 Immature granulocytes/100 WBC (Bld) 0.200 % 0.0-0.9 [facility] Comment on above: IG% - Immature Granu locytes (promyelocytes, myelocytes and metamyelocytes) > 1% indicates that a LEFT SHIFT is Present. Immature granulocytes/100 WB C Auto (Bld)Ordered By: Mathieu Mcintyre on 11-10-2023 Immature granulocytes/100 WBC (Bld) 0.400 % 0.0-0.9 [facility] Comment on above: IG% - Immature Granu locytes (promyelocytes, myelocytes and metamyelocytes) > 1% indicates that a LEFT SHIFT is Present. Iron measurement (mass/mass) Ordered By: Mathieu Mcintyre on 05-13-2024 Iron (Unsp spec) [Mass/Mass] 107 ug/dL 65-175 [facility] Laboratory - Chemistry and C hemistry - challengeOrdered By: Hans Armendariz on 11-10-2023 CO2 [Moles/Vol] 21.0 mmol/L 21.0-32.0 [facility] Urea nitrogen/Creatinine [Mass ratio] 22.7 mg/mg 10-20 [facility] - Chemistry and C hemistry - challengeOrdered By: Mathieu Mcintyre on 11-10-2023 CO2 [Moles/Vol] 22.0 mmol/L 21.0-32.0 [facility] Urea nitrogen/Creatinine [Mass ratio] 22.9 mg/mg 10-20 [facility] AST [Catalytic activity/Vol] 11 U/L Low 15-37 [facility] Ferritin [Mass/Vol] 910 ng/mL 26-388 [facility] - Hematology and Cell countsOrdered By: Hans Armendariz on 11-10-2023 MCH (RBC) [Entitic mass] 33.3 pg 27.0-32.0 [facility] MCHC (RBC) [Mass/Vol] 31.5 g/dL 32-36 [facility] Nucleated RBC/100 WBC (Bld) [Ratio] 0 % 0-5 [facility] Platelet mean volume (Bld) [Entitic vol] 9.5 fL 6.2-12.0 [facility] Platelets (Bld) [#/Vol] 131 10*3/uL 150-450 [facility] - Hematology and Cell countsOrdered By: Mathieu Mcintyre on 11-10-2023 MCH (RBC) [Entitic mass] 33.6 pg 27.0-32.0 [facility] MCHC (RBC) [Mass/Vol] 31.4 g/dL 32-36 [facility] Nucleated RBC/100 WBC (Bld) [Ratio] 0 % 0-5 [facility] Platelet mean volume (Bld) [Entitic vol] 9.5 fL 6.2-12.0 [facility] Platelets (Bld) [#/Vol] 132 10*3/uL 150-450 [facility] No Panel InformationOrdered By: Hans Armendariz on 11-10-2023 Estimated Creatinine Clearance Calc 22.62 ml/min [facility] Estimated GFR (MDRD) Amer 31 mL/min >60 [facility] Comment on above: GFR Calc Estimated GFR (MDRD) Non-Af Amer 25 mL/min >60 [facility] Comment on above: Non- GFR Calc No Panel InformationOrdered By: Mathieu Mcintyre on 11-10-2023 Estimated Creatinine Clearance Calc 23.24 ml/min [facility] Estimated GFR (MDRD) Amer 32 mL/min >60 [facility] Comment on above: GFR Calc Estimated GFR (MDRD) Non-Af Amer 26 mL/min >60 [facility] Comment on above: Non- GFR Calc C-Reactive Protein Extended Range < 2.90 mg/L 0.0-3.0 [facility] Comment on above: C-Reactive Protein ( CRP) provides useful information for thediagnosis, therapy and monitoring of inflammatory processesand associated diseases. For the evaluation of Relative Riskfor Cardiovascular Disease, a High Sensitivity CRP (HSCRP)should be ordered. Total Iron Binding Capacity 206 ug/dL 250-450 [facility] 11 U/L Low 15-37 [facility] RBC Auto (Bld) [#/Vol]Ordere d By: Hans Armendariz on 11-10-2023 RBC (Bld) [#/Vol] 2.97 10*6/uL 4.6-6.2 [facility] RBC Auto (Bld) [#/Vol]Ordere d By: Mathieu Mcintyre on 11-10-2023 RBC (Bld) [#/Vol] 2.95 10*6/uL 4.6-6.2 [facility] Serum albumin measurementOrd ered By: Mathieu Mcintyre on 11-10-2023 Albumin [Mass/Vol] 3.7 g/dL 3.2-5.0 [facility] Serum globulin measurementOr dered By: Mathieu Mcintyre on 11-10-2023 Globulin (S) [Mass/Vol] 2.8 g/dL 2.2-4.2 [facility] Serum or plasma calcium elvia urement (mass/volume)Ordered By: Hans Armendariz on 11-10-2023 Calcium [Mass/Vol] 9.0 mg/dL 8.5-10.1 [facility] Serum or plasma calcium elvia urement (mass/volume)Ordered By: Mathieu Mcintyre on 11-10-2023 Calcium [Mass/Vol] 9.1 mg/dL 8.5-10.1 [facility] Serum or plasma creatinine m easurement (mass/volume)Ordered By: Hans Armendariz on 11-10-2023 Creatinine [Mass/Vol] 2.60 mg/dL 0.70-1.30 [facility] Comment on above: The validity of the calculated GFR & GFRAA in patients over 70 years has not been determined. Clinical correlation is essential. Serum or plasma creatinine m easurement (mass/volume)Ordered By: Mathieu Mcintyre on 11-10-2023 Creatinine [Mass/Vol] 2.53 mg/dL 0.70-1.30 [facility] Comment on above: The validity of the calculated GFR & GFRAA in patients over 70 years has not been determined. Clinical correlation is essential. Serum or plasma iron saturat ion measurement (mass fraction)Ordered By: Mathieu Mcintyre on 11-10-2023 Iron saturation [Mass fraction] 51.9 % 15.0-55.0 [facility] Serum or plasma urea nitroge n measurement (mass/volume)Ordered By: Hans Armendariz on 11-10-2023 Urea nitrogen [Mass/Vol] 59 mg/dL 01-14 [facility] Serum or plasma urea nitroge n measurement (mass/volume)Ordered By: Mathieu Mcintyre on 11-10-2023 Urea nitrogen [Mass/Vol] 58 mg/dL 01-14 [facility] Thin prep Papanicolaou smear with manual screeningOrdered By: Hans Armendariz on 11-10-2023 Thin prep Papanicolaou smear with manual screening 5 - [facility] Thin prep Papanicolaou smear with manual screeningOrdered By: Mathieu Mcintyre on 11-10-2023 Thin prep Papanicolaou smear with manual screening 5 - [facility] Thin prep Papanicolaou smear with manual screening 3.7 g/dL 3.2-5.0 [facility] Thin prep Papanicolaou smear with manual screening 11 U/L 15-37 [facility] Anaerobic cultureOrdered By: Warren Sampson on 09-03-2023 Bacteria identified Anaer cx Nom (Unsp spec) No anaerobic bacteria isolated. [facility] Fungus cultureOrdered By: Grace Sampson on 09-03-2023 Fungus identified Cx Nom (Unsp spec) [facility] Gram stain for investigation of transfusion reactionOrdered By: Warren Sampson on 09-03-2023 Microscopic observation Gram stain Nom (Unsp spec) [facility] Routine wound cultureOrdered By: Warren Sampson on 09-03-2023 Bacteria identified Cx Nom (Wound) No growth aerobically. [facility] Basophil percentageOrdered B y: Rosa Maria Santacruz on 08-19-2023 Basophil percentage 118 mg/dL 74-106 [facility] Basophil percentage 140 mmol/L 136-145 [facility] Basophil percentage 4.8 mmol/L 3.5-5.1 [facility] Basophil percentage 110 mmol/L 98-107 [facility] Chloride [Moles/Vol] 110 mmol/L 98-107 [facility] Glucose [Mass/Vol] 118 mg/dL 74-106 [facility] Comment on above: Fasting Glucose resu lt from 100 to 125 mg/dL suggests IMPAIRED HOMEOSTASIS per A.D.A. criteria. Potassium [Moles/Vol] 4.8 mmol/L 3.5-5.1 [facility] Sodium [Moles/Vol] 140 mmol/L 136-145 [facility] Laboratory - Chemistry and C hemistry - challengeOrdered By: Rosa Maria Santacruz on 08-19-2023 CO2 [Moles/Vol] 23.0 mmol/L 21.0-32.0 [facility] Urea nitrogen/Creatinine [Mass ratio] 22.2 mg/mg 04-18 [facility] No Panel InformationOrdered By: oRsa Maria Santacruz on 08-19-2023 Estimated GFR (MDRD) Amer 26 mL/min >60 [facility] Comment on above: GFR Calc Estimated GFR (MDRD) Non-Af Amer 22 mL/min >60 [facility] Comment on above: Non- GFR Calc 22 mL/min >60 [facility] 26 mL/min >60 [facility] 22.2 RATIO 04-18 [facility] 23.0 mmol/L 21.0-32.0 [facility] Serum or plasma calcium elvia urement (mass/volume)Ordered By: Rosa Maria Santacruz on 08-19-2023 Calcium [Mass/Vol] 8.9 mg/dL 8.5-10.1 [facility] Serum or plasma creatinine m easurement (mass/volume)Ordered By: Rosa Maria Santacruz on 08-19-2023 Creatinine [Mass/Vol] 2.97 mg/dL 0.70-1.30 [facility] Comment on above: The validity of the calculated GFR & GFRAA in patients over 70 years has not been determined. Clinical correlation is essential. Serum or plasma urea nitroge n measurement (mass/volume)Ordered By: Rosa Maria Santacruz on 08-19-2023 Urea nitrogen [Mass/Vol] 66 mg/dL 7-18 [facility] Thin prep Papanicolaou smear with manual screeningOrdered By: Rosa Maria Santacruz on 08-19-2023 Thin prep Papanicolaou smear with manual screening 7 5-15 [facility] Absolute lymphocyte countOrd ered By: Mathieu Mcintyre on 08-18-2023 Lymphocytes Auto (Unsp spec) [#/Vol] 0.86 10*3/uL 0.83-4.51 [facility] Automated lymphocyte count a s percentage of total leukocytesOrdered By: Mathieu Mcintyre on 08-18-2023 Lymphocytes/100 WBC Auto (Unsp spec) 13.8 % 19-41 [facility] Basophil percentageOrdered B y: Mathieu Mcintyre on 08-18-2023 Basophil percentage 5.7 mmol/L 3.5-5.1 [facility] Basophil percentage 10.7 g/dL 13.0-16.5 [facility] Basophil percentage 127 mg/dL 74-106 [facility] Basophil percentage 6.6 g/dL 6.4-8.2 [facility] Basophil percentage 0.40 mg/dL 0.20-1.00 [facility] Basophil percentage 137 mmol/L 136-145 [facility] Basophil percentage 110 mmol/L 98-107 [facility] Basophil percentage 141 U/L 87-241 [facility] Basophils (Bld) [#/Vol] 6.2 10*3/uL 4.4-11.0 [facility] Basophils (Bld) [#/Vol] 4.3 10*3/uL 2.0-7.7 [facility] Basophils/100 WBC (Bld) 68.7 % 47-70 [facility] Basophils/100 WBC (Bld) 10.4 % 0-10 [facility] Basophils/100 WBC (Bld) 6.3 % 0-5 [facility] Basophils/100 WBC (Bld) 0.6 % 0-1 [facility] Determination of erythrocyte mean corpuscular volume (MCV)Ordered By: Mathieu Mcintyre on 08-18-2023 MCV (RBC) [Entitic vol] 109.9 fL 80-94 [facility] Erythrocyte distribution wid th ratioOrdered By: Mathieu Mcintyre on 08-18-2023 Erythrocyte distribution width (RBC) [Ratio] 13.8 % 11.6-14.6 [facility] Erythrocyte distribution wid th standard deviationOrdered By: Mathieu Mcintyre on 08-18-2023 Erythrocyte distribution width (RBC) [Entitic vol] 56.3 fL 35.1-43.9 [facility] Hematocrit Auto (Bld) [Volum e fraction]Ordered By: Mathieu Mcintyre on 08-18-2023 Hematocrit (Bld) [Volume fraction] 33.4 % 40-54 [facility] Immature granulocytes/100 WB C Auto (Bld)Ordered By: Mathieu Mcintyre on 08-18-2023 Immature granulocytes/100 WBC (Bld) 0.200 % 0.0-0.9 [facility] Iron measurement (mass/mass) Ordered By: Mathieu Mcintyre on 08-18-2023 Iron (Unsp spec) [Mass/Mass] 83 ug/dL 65-175 [facility] No Panel InformationOrdered By: Mathieu Mcintyre on 08-18-2023 35.2 pg 27.0-32.0 [facility] 32.0 g/dL 32-36 [facility] 112 K/mm3 150-450 [facility] 8.9 fl 6.2-12.0 [facility] 0 % 0-5 [facility] 23 mL/min >60 [facility] 28 mL/min >60 [facility] 20.63 ml/min [facility] 22.1 RATIO 10-20 [facility] 2.8 g/dL 2.2-4.2 [facility] 1.4 RATIO 0.9-2.4 [facility] 112 U/L 45-117 [facility] 11 U/L 16-61 [facility] 22.0 mmol/L 21.0-32.0 [facility] 242 ug/dL 250-450 [facility] 1275 ng/mL 26-388 [facility] RBC Auto (Bld) [#/Vol]Ordere d By: Mathieu Mcintyre on 08-18-2023 RBC (Bld) [#/Vol] 3.04 10*6/uL 4.6-6.2 [facility] Serum or plasma calcium elvia urement (mass/volume)Ordered By: Mathieu Mcintyre on 08-18-2023 Calcium [Mass/Vol] 8.7 mg/dL 8.5-10.1 [facility] Serum or plasma creatinine m easurement (mass/volume)Ordered By: Mathieu Mcintyre on 08-18-2023 Creatinine [Mass/Vol] 2.85 mg/dL 0.70-1.30 [facility] Serum or plasma iron saturat ion measurement (mass fraction)Ordered By: Mathieu Mcintyre on 08-18-2023 Iron saturation [Mass fraction] 34.3 % 15.0-55.0 [facility] Serum or plasma urea nitroge n measurement (mass/volume)Ordered By: Mathieu Mcintyre on 08-18-2023 Urea nitrogen [Mass/Vol] 63 mg/dL 7-18 [facility] Thin prep Papanicolaou smear with manual screeningOrdered By: Mathieu Mcintyre on 08-18-2023 Thin prep Papanicolaou smear with manual screening 3.8 g/dL 3.2-5.0 [facility] Thin prep Papanicolaou smear with manual screening 9 U/L 15-37 [facility] Thin prep Papanicolaou smear with manual screening 5 5-15 [facility] Absolute lymphocyte countOrd ered By: Mathieu Mcintyre on 07-07-2023 Lymphocytes Auto (Unsp spec) [#/Vol] 0.65 10*3/uL 0.83-4.51 [facility] Basophil percentageOrdered B y: Mathieu Mcintyre on 07-07-2023 Basophil percentage 98 mg/dL 74-106 [facility] Basophil percentage 6.2 g/dL 6.4-8.2 [facility] Basophil percentage 0.40 mg/dL 0.20-1.00 [facility] Basophil percentage 143 mmol/L 136-145 [facility] Basophil percentage 4.5 mmol/L 3.5-5.1 [facility] Basophil percentage 112 mmol/L 98-107 [facility] Basophil percentage 158 U/L 87-241 [facility] Basophils (Bld) [#/Vol] 3.7 10*3/uL 4.4-11.0 [facility] Basophils (Bld) [#/Vol] 2.5 10*3/uL 2.0-7.7 [facility] Basophils/100 WBC (Bld) 66.9 % 47-70 [facility] Basophils/100 WBC (Bld) 3.8 % 0-5 [facility] Basophils/100 WBC (Bld) 1.1 % 0-1 [facility] Blood erythrocytes count (nu mber/volume)Ordered By: Mathieu Mcintyre on 07-07-2023 RBC (Bld) [#/Vol] 2.30 10*6/uL 4.6-6.2 [facility] Blood hemoglobin measurement (mass/volume)Ordered By: Mathieu Mcintyre on 07-07-2023 Hemoglobin (Bld) [Mass/Vol] 7.9 g/dL 13.0-16.5 [facility] Blood lymphocytes/100 leukoc ytesOrdered By: Mathieu Mcintyre on 07-07-2023 Lymphocytes/100 WBC (Bld) 17.6 % 19-41 [facility] Blood monocytes/100 leukocyt esOrdered By: Mathieu Mcintyre on 07-07-2023 Monocytes/100 WBC (Bld) 10.3 % 0-10 [facility] Blood platelet mean volumeOr dered By: Mathieu Mcintyre on 07-07-2023 Platelet mean volume (Bld) [Entitic vol] 9.8 fL 6.2-12.0 [facility] Determination of erythrocyte mean corpuscular volume (MCV)Ordered By: Mathieu Mcintyre on 07-07-2023 MCV (RBC) [Entitic vol] 113.9 fL 80-94 [facility] Hematocrit Auto (Bld) [Volum e fraction]Ordered By: Mathieu Mcintyre on 07-07-2023 Hematocrit (Bld) [Volume fraction] 26.2 % 40-54 [facility] Iron measurement (mass/mass) Ordered By: Mathieu Mcintyre on 07-07-2023 Iron (Unsp spec) [Mass/Mass] 51 ug/dL 65-175 [facility] Laboratory - Hematology and Cell countsOrdered By: Mathieu Mcintyre on 07-07-2023 Anisocytosis Ql (Bld) 2+ [facility] MCHC Auto (RBC) [Mass/Vol]Or dered By: Mathieu Mcintyre on 07-07-2023 MCHC (RBC) [Mass/Vol] 30.2 g/dL 32-36 [facility] No Panel InformationOrdered By: Mathieu Mcintyre on 07-07-2023 34.3 pg 27.0-32.0 [facility] 16.2 % 11.6-14.6 [facility] 69.3 fl 35.1-43.9 [facility] 0.300 % 0.0-0.9 [facility] 0 % 0-5 [facility] 2+ [facility] 22 mL/min >60 [facility] 26 mL/min >60 [facility] 20.41 ml/min [facility] 19.7 RATIO 10-20 [facility] 2.9 g/dL 2.2-4.2 [facility] 91 U/L 45-117 [facility] 12 U/L 16-61 [facility] 25.0 mmol/L 21.0-32.0 [facility] 239 ug/dL 250-450 [facility] Platelets bldOrdered By: Anderson Mcintyre on 07-07-2023 Platelets (Bld) [#/Vol] 130 10*3/uL 150-450 [facility] Serum or plasma albumin elvia urement (mass/volume)Ordered By: Mathieu Mcintyre on 07-07-2023 Albumin [Mass/Vol] 3.3 g/dL 3.2-5.0 [facility] Serum or plasma albumin/glob ulin mass ratioOrdered By: Mathieu Mcintyre on 07-07-2023 Albumin/Globulin [Mass ratio] 1.1 {ratio} 0.9-2.4 [facility] Serum or plasma calcium elvia urement (mass/volume)Ordered By: Mathieu Mcintyre on 07-07-2023 Calcium [Mass/Vol] 8.6 mg/dL 8.5-10.1 [facility] Serum or plasma creatinine m easurement (mass/volume)Ordered By: Mathieu Mcintyre on 07-07-2023 Creatinine [Mass/Vol] 2.95 mg/dL 0.70-1.30 [facility] Serum or plasma ferritin pedro luis surement (mass/volume)Ordered By: Mathieu Mcintyre on 07-07-2023 Ferritin [Mass/Vol] 446 ng/mL 26-388 [facility] Serum or plasma iron saturat ion measurement (mass fraction)Ordered By: Mathieu Mcintyre on 07-07-2023 Iron saturation [Mass fraction] 21.3 % 15.0-55.0 [facility] Serum or plasma urea nitroge n measurement (mass/volume)Ordered By: Mathieu Mcintyre on 07-07-2023 Urea nitrogen [Mass/Vol] 58 mg/dL 7-18 [facility] Thin prep Papanicolaou smear with manual screeningOrdered By: Mathieu Mcintyre on 07-07-2023 Thin prep Papanicolaou smear with manual screening 13 U/L 15-37 [facility] Thin prep Papanicolaou smear with manual screening 6 5-15 [facility] Absolute lymphocyte countOrd ered By: Priya Sheehan on 06-25-2023 Lymphocytes Auto (Unsp spec) [#/Vol] 0.46 10*3/uL 0.83-4.51 [facility] Basophil percentageOrdered B y: Priya Sheehan on 06-25-2023 Basophil percentage 63 mg/dL 74-106 [facility] Basophil percentage 143 mmol/L 136-145 [facility] Basophil percentage 5.1 mmol/L 3.5-5.1 [facility] Basophil percentage 111 mmol/L 98-107 [facility] Basophils (Bld) [#/Vol] 3.3 10*3/uL 4.4-11.0 [facility] Basophils (Bld) [#/Vol] 2.3 10*3/uL 2.0-7.7 [facility] Basophils/100 WBC (Bld) 69.7 % 47-70 [facility] Basophils/100 WBC (Bld) 5.8 % 0-5 [facility] Basophils/100 WBC (Bld) 0.9 % 0-1 [facility] Blood erythrocytes count (nu mber/volume)Ordered By: Priya Sheehan on 06-25-2023 RBC (Bld) [#/Vol] 2.13 10*6/uL 4.6-6.2 [facility] Blood hemoglobin measurement (mass/volume)Ordered By: Priya Sheehan on 06-25-2023 Hemoglobin (Bld) [Mass/Vol] 7.4 g/dL 13.0-16.5 [facility] Blood lymphocytes/100 leukoc ytesOrdered By: Priya Sheehan on 06-25-2023 Lymphocytes/100 WBC (Bld) 14.1 % 19-41 [facility] Blood manual differential co mment interpretation (narrative result)Ordered By: Priya Sheehan on 06-25-2023 Manual differential comment Eric (Bld) [Interp] SCANNED [facility] Blood monocytes/100 leukocyt esOrdered By: Priya Sheehan on 06-25-2023 Monocytes/100 WBC (Bld) 9.2 % 0-10 [facility] Blood platelet adequacy dete ction by light microscopyOrdered By: Priya Sheehan on 06-25-2023 Platelets LM Ql (Bld) SLT DEC ADEQ [facility] Blood platelet mean volumeOr dered By: Priya Sheehan on 06-25-2023 Platelet mean volume (Bld) [Entitic vol] 10.5 fL 6.2-12.0 [facility] Determination of erythrocyte mean corpuscular volume (MCV)Ordered By: Priya Sheehan on 06-25-2023 MCV (RBC) [Entitic vol] 112.2 fL 80-94 [facility] Glucose Glucometer (BldC) [M ass/Vol]Ordered By: Priya Sheehan on 06-25-2023 Glucose [Mass/Vol] 82 mg/dL 74-106 [facility] Hematocrit Auto (Bld) [Volum e fraction]Ordered By: Priya Sheehan on 06-25-2023 Hematocrit (Bld) [Volume fraction] 23.9 % 40-54 [facility] MCHC Auto (RBC) [Mass/Vol]Or dered By: Priya Sheehan on 06-25-2023 MCHC (RBC) [Mass/Vol] 31.0 g/dL 32-36 [facility] No Panel InformationOrdered By: Priya Sheehan on 06-25-2023 34.7 pg 27.0-32.0 [facility] 17.2 % 11.6-14.6 [facility] 71.7 fl 35.1-43.9 [facility] 0.300 % 0.0-0.9 [facility] 0 % 0-5 [facility] RARE [facility] 28 mL/min >60 [facility] 33 mL/min >60 [facility] 24.82 ml/min [facility] 18.7 RATIO 10-20 [facility] 27.0 mmol/L 21.0-32.0 [facility] Platelets bldOrdered By: Annalise Sheehan on 06-25-2023 Platelets (Bld) [#/Vol] 83 10*3/uL 150-450 [facility] Review by pathologistOrdered By: Priya Sheehan on 06-25-2023 Pathologist review Eric (Unsp spec) [Interp] October [facility] Pathologist review Eric (Unsp spec) [Interp] Reviewed [facility] Serum or plasma calcium elvia urement (mass/volume)Ordered By: Priya Sheehan on 06-25-2023 Calcium [Mass/Vol] 8.2 mg/dL 8.5-10.1 [facility] Serum or plasma creatinine m easurement (mass/volume)Ordered By: Priya Sheehan on 06-25-2023 Creatinine [Mass/Vol] 2.41 mg/dL 0.70-1.30 [facility] Serum or plasma urea nitroge n measurement (mass/volume)Ordered By: Priya Sheehan on 06-25-2023 Urea nitrogen [Mass/Vol] 45 mg/dL 7-18 [facility] Thin prep Papanicolaou smear with manual screeningOrdered By: Priya Sheehan on 06-25-2023 Thin prep Papanicolaou smear with manual screening 5 5-15 [facility] Lower GI hemoglobin IA Ql (S tl)Ordered By: Priya Sheehan on 06-24-2023 Stool gastrointestinal hemoglobin detection by immunologic method Positive [facility] Stool gastrointestinal hemoglobin detection by immunologic method Positive [facility] Macrocytes detectionOrdered By: Priya Sheehan on 06-24-2023 Macrocytes Ql (Bld) 1+ [facility] No Panel InformationOrdered By: Irving Horowitz on 06-24-2023 370 pg/mL 211-911 [facility] See comment [facility] Not Reportable [facility] Serum IgA measurement (units /volume)Ordered By: Irving Horowitz on 06-24-2023 IgA Qn (S) Not Reportable [facility] Serum or plasma folate measu rement (mass/volume)Ordered By: Irving Horowitz on 06-24-2023 Folate [Mass/Vol] 21.00 ng/mL 3.1-55.4 [facility] Serum parietal cell antibody assay (units/volume)Ordered By: Irving Horowitz on 06-24-2023 Parietal cell Ab Qn (S) See comment [facility] Serum tissue transglutaminas e IgA antibody assay (units/volume)Ordered By: Irving Horowitz on 06-24-2023 tTG IgA Qn (S) Not Reportable [facility] Thin prep Papanicolaou smear with manual screeningOrdered By: Priya Sheehan on 06-24-2023 Thin prep Papanicolaou smear with manual screening 1+ [facility] Basophil percentageOrdered B y: Oniel Moulton on 06-23-2023 Basophil percentage 0 SEEN /hpf 0-5 [facility] Bilirubin Test strip Ql (U)O rdered By: Oniel Moulton on 06-23-2023 Bilirubin Ql (U) Negative Negative [facility] Ketones Test strip Ql (U)Ord ered By: Oniel Moulton on 06-23-2023 Ketones Ql (U) Negative Negative [facility] Mucus LM Ql (Urine sed)Order ed By: Oniel Moulton on 06-23-2023 Mucus Ql (Urine sed) 0 SEEN /hpf [facility] Nitrite Test strip Ql (U)Ord ered By: Oniel Moulton on 06-23-2023 Nitrite Ql (U) Negative Negative [facility] Protein Test strip Ql (U)Ord ered By: Oniel Moulton on 06-23-2023 Protein Ql (U) Negative Negative [facility] Squamous epithelial cells de tection in urine sediment by light microscopyOrdered By: Oniel Moulton on 06-23-2023 Epithelial cells.squamous LM Ql (Urine sed) 0 SEEN /hpf 0-5 [facility] Urine blood detectionOrdered By: Oniel Moulton on 06-23-2023 RBC Ql (U) Negative Negative [facility] RBC Ql (U) 0 SEEN /hpf 0-5 [facility] Urine clarityOrdered By: Al Moulton on 06-23-2023 Clarity (U) Clear Clear [facility] Urine color determinationOrd ered By: Oniel Moulton on 06-23-2023 Color (U) Yellow Yellow [facility] Urine glucose detectionOrder ed By: Oniel Moulton on 06-23-2023 Glucose Ql (U) Normal mg/dl Normal [facility] Urine leukocyte esterase det ection by dipstickOrdered By: Oniel Moulton on 06-23-2023 Leukocyte esterase Test strip Ql (U) Negative Negative [facility] Urine pHOrdered By: Oniel Moulton on 06-23-2023 pH (U) 7.0 [pH] 5.0 - 8.0 [facility] Urine sediment bacteria coun t by microscopy (number/high power field)Ordered By: Oniel Moulton on 06-23-2023 Bacteria LM.HPF (Urine sed) [#/Area] 0 /[HPF] None Seen [facility] Urine specific gravity measu rementOrdered By: Oniel Moulton on 06-23-2023 Specific gravity (U) [Rel density] 1.010 1.002-1.[address] [facility] Urobilinogen Auto test strip Ql (U)Ordered By: Oniel Moulton on 06-23-2023 Urobilinogen Ql (U) Normal mg/dl Normal [facility] Iron measurement (mass/mass) Ordered By: Priya Sheehan on 06-22-2023 Iron (Unsp spec) [Mass/Mass] 34 ug/dL 65-175 [facility] No Panel InformationOrdered By: Priya Sheehan on 06-22-2023 204 ug/dL 250-450 [facility] Serum or plasma ferritin pedro luis surement (mass/volume)Ordered By: Priya Sheehan on 06-22-2023 Ferritin [Mass/Vol] 399 ng/mL 26-388 [facility] Serum or plasma iron saturat ion measurement (mass fraction)Ordered By: Priya Sheehan on 06-22-2023 Iron saturation [Mass fraction] 16.7 % 15.0-55.0 [facility] Assessment of wrist artery p atency prior to arterial punctureOrdered By: Priya Sheehan on 06-21-2023 Arterial patency Wrist artery --pre arterial puncture Positive [facility] Base excessOrdered By: Priya Sheehan on 06-21-2023 Base excess Calc (BldV) [Moles/Vol] -2 mmol/L -2-2 [facility] Basophil percentageOrdered B y: Priya Sheehan on 06-21-2023 Basophil percentage 23.2 mmol/L 22-26 [facility] Basophils/100 WBC (Bld) 86 % 95-99 [facility] Basophil percentageOrdered B y: Jackie Myrick on 06-21-2023 Basophil percentage 4.0 mg/dL 2.5-4.9 [facility] CO2 (BldA) [Partial pressure ]Ordered By: Priya Sheehan on 06-21-2023 CO2 (Bld) [Partial pressure] 39.1 mm[Hg] 35-45 [facility] Hemoglobin in reticulocytes (mass per reticulocyte)Ordered By: Oniel Moulton on 06-21-2023 Hemoglobin (Reticulocytes) [Entitic mass] 29.7 pg 30-35 [facility] No Panel InformationOrdered By: Priya Sheehan on 06-21-[address] [facility] L Radial [facility] Not entered [facility] HFNC [facility] 8.0 [facility] 24 mmol/L [facility] 976.4 pg/mL 0-100 [facility] No Panel InformationOrdered By: Oniel Moulton on 06-21-2023 2.81 % 0.5-1.5 [facility] 11.10 % 3.00-15.90 [facility] 3.7 % 1.0-7.9 [facility] 1.61 uIU/mL 0.358-3.74 [facility] 1.17 ng/dL 0.76-1.46 [facility] Ovalocyte detectionOrdered B y: Oniel Moulton on 06-21-2023 Ovalocytes LM Ql (Bld) RARE [facility] Oxygen (BldA) [Partial press ure]Ordered By: Priya Sissy on 06-21-2023 Oxygen (Bld) [Partial pressure] 52 mmHG 75-100 [facility] Serum or plasma albumin elvia urement (mass/volume)Ordered By: Jackie Myrick on 06-21-2023 Albumin [Mass/Vol] 2.7 g/dL 3.2-5.0 [facility] pH measurementOrdered By: Linda Sheehan on 06-21-2023 pH (Unsp spec) 7.38 [pH] 7.35-7.45 [facility] Absolute lymphocyte countOrd ered By: Jakob Nowak on 06-20-2023 Lymphocytes Auto (Unsp spec) [#/Vol] 0.49 10*3/uL 0.83-4.51 [facility] Basophil percentageOrdered B y: Jakob Nowak on 06-20-2023 Basophil percentage 113 mg/dL 74-106 [facility] Basophil percentage 143 mmol/L 136-145 [facility] Basophil percentage 6.0 mmol/L 3.5-5.1 [facility] Basophil percentage 119 mmol/L 98-107 [facility] Basophils (Bld) [#/Vol] 3.7 10*3/uL 4.4-11.0 [facility] Basophils (Bld) [#/Vol] 2.7 10*3/uL 2.0-7.7 [facility] Basophils/100 WBC (Bld) 73.4 % 47-70 [facility] Basophils/100 WBC (Bld) 1.6 % 0-5 [facility] Basophils/100 WBC (Bld) 0.5 % 0-1 [facility] Basophil percentageOrdered B y: Oniel Moulton on 06-20-2023 Basophil percentage 5.5 g/dL 6.4-8.2 [facility] Basophil percentage 0.40 mg/dL 0.20-1.00 [facility] Blood erythrocytes count (nu mber/volume)Ordered By: Jakob Nowak on 06-20-2023 RBC (Bld) [#/Vol] 2.24 10*6/uL 4.6-6.2 [facility] Blood hemoglobin measurement (mass/volume)Ordered By: Jakob Nowak on 06-20-2023 Hemoglobin (Bld) [Mass/Vol] 7.8 g/dL 13.0-16.5 [facility] Blood lymphocytes/100 leukoc ytesOrdered By: Jakob Nowak on 06-20-2023 Lymphocytes/100 WBC (Bld) 13.3 % 19-41 [facility] Blood manual differential co mment interpretation (narrative result)Ordered By: Jakob Nowak on 06-20-2023 Manual differential comment Eric (Bld) [Interp] SCANNED [facility] Blood monocytes/100 leukocyt esOrdered By: Jakob Nowak on 06-20-2023 Monocytes/100 WBC (Bld) 10.9 % 0-10 [facility] Blood platelet adequacy dete ction by light microscopyOrdered By: Jakob Nowak on 06-20-2023 Platelets LM Ql (Bld) MOD DEC ADEQ [facility] Blood platelet mean volumeOr dered By: Jakob Nowak on 06-20-2023 Platelet mean volume (Bld) [Entitic vol] 10.7 fL 6.2-12.0 [facility] Determination of erythrocyte mean corpuscular volume (MCV)Ordered By: Jakob Nowak on 06-20-2023 MCV (RBC) [Entitic vol] 112.9 fL 80-94 [facility] Direct bilirubinOrdered By: Oniel Moulton on 06-20-2023 Bilirubin.direct [Mass/Vol] 0.14 mg/dL 0.00-0.30 [facility] Glucose Glucometer (BldC) [M ass/Vol]Ordered By: Jakob Nowak on 06-20-2023 Glucose [Mass/Vol] 135 mg/dL 74-106 [facility] Hematocrit Auto (Bld) [Volum e fraction]Ordered By: Jakob Nowak on 06-20-2023 Hematocrit (Bld) [Volume fraction] 25.3 % 40-54 [facility] MCHC Auto (RBC) [Mass/Vol]Or dered By: Jakob Nowak on 06-20-2023 MCHC (RBC) [Mass/Vol] 30.8 g/dL 32-36 [facility] No Panel InformationOrdered By: Jackie Myrick on 06-20-2023 53 U/L 39-308 [facility] No Panel InformationOrdered By: Jaokb Nowak on 06-20-2023 25 mL/min >60 [facility] 31 mL/min >60 [facility] 23.10 ml/min [facility] 19.7 RATIO 10-20 [facility] 71 pg/mL 3.0-78.0 [facility] 22.0 mmol/L 21.0-32.0 [facility] 34.8 pg 27.0-32.0 [facility] 19.5 % 11.6-14.6 [facility] 81.2 fl 35.1-43.9 [facility] 0.300 % 0.0-0.9 [facility] 0 % 0-5 [facility] 2+ [facility] No Panel InformationOrdered By: Oniel Moulton on 06-20-2023 2.5 g/dL 2.2-4.2 [facility] 108 U/L 45-117 [facility] 14 U/L 16-61 [facility] 2.0 mg/dL 1.6-2.6 [facility] Platelets bldOrdered By: Catalina Nowak on 06-20-2023 Platelets (Bld) [#/Vol] 97 10*3/uL 150-450 [facility] Review by pathologistOrdered By: Jakob Nowak on 06-20-2023 Pathologist review Eric (Unsp spec) [Interp] May foll [facility] Serum or plasma calcium elvia urement (mass/volume)Ordered By: Jakob Nowak on 06-20-2023 Calcium [Mass/Vol] 9.3 mg/dL 8.5-10.1 [facility] Serum or plasma creatinine m easurement (mass/volume)Ordered By: Jakob Nowak on 06-20-2023 Creatinine [Mass/Vol] 2.59 mg/dL 0.70-1.30 [facility] Serum or plasma urea nitroge n measurement (mass/volume)Ordered By: Jakob Nowak on 06-20-2023 Urea nitrogen [Mass/Vol] 51 mg/dL 7-18 [facility] Thin prep Papanicolaou smear with manual screeningOrdered By: Jakob Nowak on 06-20-2023 Thin prep Papanicolaou smear with manual screening 2 5-15 [facility] Thin prep Papanicolaou smear with manual screeningOrdered By: Oniel Moulton on 06-20-2023 Thin prep Papanicolaou smear with manual screening 37 U/L 15-37 [facility] Anaerobic cultureOrdered By: Warren Sampson on 06-04-2023 Bacteria identified Anaer cx Nom (Unsp spec) No anaerobic bacteria isolated. [facility] Bacteria identified Anaer cx Nom (Unsp spec) No anaerobic bacteria isolated. [facility] Bacteria identified Cx Nom ( Wound)Ordered By: Warren Sampson on 06-04-2023 Routine wound culture Klebsiella pneumon iae sp pneum [facility] Routine wound culture Meth. resistant St aph. aureus [facility] Routine wound culture Corynebacterium striatum [facility] Routine wound culture Pseudomonas aeruginosa [facility] Routine wound culture Klebsiella pneumon iae sp pneum [facility] Routine wound culture Meth. resistant St aph. aureus [facility] Routine wound culture Corynebacterium striatum [facility] Routine wound culture Pseudomonas aeruginosa [facility] Gram stain for investigation of transfusion reactionOrdered By: Warren Sampson on 06-04-2023 Microscopic observation Gram stain Nom (Unsp spec) [facility] Microscopic observation Gram stain Nom (Unsp spec) [facility] Absolute lymphocyte countOrd ered By: Warren Sampson on 04-16-2023 Lymphocytes Auto (Unsp spec) [#/Vol] 0.76 10*3/uL 0.83-4.51 [facility] Basophil percentageOrdered B y: Warren Sampson on 04-16-2023 Basophil percentage 110 mg/dL 74-106 [facility] Basophil percentage 142 mmol/L 136-145 [facility] Basophil percentage 5.1 mmol/L 3.5-5.1 [facility] Basophil percentage 114 mmol/L 98-107 [facility] Basophils (Bld) [#/Vol] 4.6 10*3/uL 4.4-11.0 [facility] Basophils (Bld) [#/Vol] 2.9 10*3/uL 2.0-7.7 [facility] Basophils/100 WBC (Bld) 64.1 % 47-70 [facility] Basophils/100 WBC (Bld) 6.1 % 0-5 [facility] Basophils/100 WBC (Bld) 1.1 % 0-1 [facility] Chloride [Moles/Vol] 114 mmol/L 98-107 [facility] Eosinophils/100 WBC (Bld) 6.1 % 0-5 [facility] Glucose [Mass/Vol] 110 mg/dL 74-106 [facility] Comment on above: Fasting Glucose resu lt from 100 to 125 mg/dL suggests IMPAIRED HOMEOSTASIS per A.D.A. criteria. Neutrophils (Bld) [#/Vol] 2.9 10*3/uL 2.0-7.7 [facility] Neutrophils/100 WBC (Bld) 64.1 % 47-70 [facility] Potassium [Moles/Vol] 5.1 mmol/L 3.5-5.1 [facility] Sodium [Moles/Vol] 142 mmol/L 136-145 [facility] WBC (Bld) [#/Vol] 4.6 10*3/uL 4.4-11.0 [facility] Blood erythrocytes count (nu mber/volume)Ordered By: Warren Sampson on 04-16-2023 RBC (Bld) [#/Vol] 3.14 10*6/uL 4.6-6.2 [facility] Blood hemoglobin measurement (mass/volume)Ordered By: Warren Sampson on 04-16-2023 Hemoglobin (Bld) [Mass/Vol] 10.4 g/dL 13.0-16.5 [facility] Blood lymphocytes/100 leukoc ytesOrdered By: Warren Sampson on 04-16-2023 Lymphocytes/100 WBC (Bld) 16.7 % 19-41 [facility] Blood manual differential co mment interpretation (narrative result)Ordered By: Warren Sampson on 04-16-2023 Manual differential comment Eric (Bld) [Interp] SCANNED [facility] Comment on above: 1+ ANISOCYTOSIS Blood monocytes/100 leukocyt esOrdered By: Warren Sampson on 04-16-2023 Monocytes/100 WBC (Bld) 11.8 % 0-10 [facility] Blood platelet mean volumeOr dered By: Warren Sampson on 04-16-2023 Platelet mean volume (Bld) [Entitic vol] 10.5 fL 6.2-12.0 [facility] Determination of erythrocyte mean corpuscular volume (MCV)Ordered By: Warren Sampson on 04-16-2023 MCV (RBC) [Entitic vol] 106.4 fL 80-94 [facility] Erythrocyte sedimentation ra teOrdered By: Warren Sampson on 04-16-2023 ESR (Bld) [Velocity] 6 [facility] Auto (Bld) [Volum e fraction]Ordered By: Warren Sampson on 04-16-2023 Hematocrit (Bld) [Volume fraction] 33.4 % 40-54 [facility] Laboratory - Chemistry and C hemistry - challengeOrdered By: Warren Sampson on 04-16-2023 CO2 [Moles/Vol] 22.0 mmol/L 21.0-32.0 [facility] Urea nitrogen/Creatinine [Mass ratio] 20.9 mg/mg 10-20 [facility] - Hematology and Cell countsOrdered By: Warren Sampson on 04-16-2023 Erythrocyte distribution width (RBC) [Entitic vol] 66.9 fL 35.1-43.9 [facility] Erythrocyte distribution width (RBC) [Ratio] 17.0 % 11.6-14.6 [facility] Immature granulocytes/100 WBC (Bld) 0.200 % 0.0-0.9 [facility] Comment on above: IG% - Immature Granu locytes (promyelocytes, myelocytes and metamyelocytes) > 1% indicates that a LEFT SHIFT is Present. MCH (RBC) [Entitic mass] 33.1 pg 27.0-32.0 [facility] Nucleated RBC/100 WBC (Bld) [Ratio] 0 % 0-5 [facility] MCHC Auto (RBC) [Mass/Vol]Or dered By: Warren Sampson on 04-16-2023 MCHC (RBC) [Mass/Vol] 31.1 g/dL 32-36 [facility] No Panel InformationOrdered By: Warren Sampson on 04-16-2023 Estimated GFR (MDRD) Amer 28 mL/min >60 [facility] Comment on above: GFR Calc Estimated GFR (MDRD) Non-Af Amer 23 mL/min >60 [facility] Comment on above: Non- GFR Calc 33.1 pg 27.0-32.0 [facility] 17.0 % 11.6-14.6 [facility] 66.9 fl 35.1-43.9 [facility] 0.200 % 0.0-0.9 [facility] 0 % 0-5 [facility] 23 mL/min >60 [facility] 28 mL/min >60 [facility] 20.9 RATIO 10-20 [facility] 22.0 mmol/L 21.0-32.0 [facility] Platelets bldOrdered By: Miguel Sampson on 04-16-2023 Platelets (Bld) [#/Vol] 130 10*3/uL 150-450 [facility] Serum or plasma C reactive p rotein measurement (mass/volume)Ordered By: Warren Sampson on 04-16-2023 CRP [Mass/Vol] 18.50 mg/L 0.0-3.0 [facility] Comment on above: C-Reactive Protein ( CRP) provides useful information for thediagnosis, therapy and monitoring of inflammatory processesand associated diseases. For the evaluation of Relative Riskfor Cardiovascular Disease, a High Sensitivity CRP (HSCRP)should be ordered. Serum or plasma calcium elvia urement (mass/volume)Ordered By: Warren Sampson on 04-16-2023 Calcium [Mass/Vol] 9.2 mg/dL 8.5-10.1 [facility] Serum or plasma creatinine m easurement (mass/volume)Ordered By: Warren Sampson on 04-16-2023 Creatinine [Mass/Vol] 2.82 mg/dL 0.70-1.30 [facility] Comment on above: The validity of the calculated GFR & GFRAA in patients over 70 years has not been determined. Clinical correlation is essential. Serum or plasma urea nitroge n measurement (mass/volume)Ordered By: Warren Sampson on 04-16-2023 Urea nitrogen [Mass/Vol] 59 mg/dL 7-18 [facility] Thin prep Papanicolaou smear with manual screeningOrdered By: Warren Sampson on 04-16-2023 Thin prep Papanicolaou smear with manual screening 6 5-15 [facility] Whole blood hemoglobin A1c/t otal hemoglobin ratio (mass fraction)Ordered By: Warren Sampson on 04-16-2023 HbA1c (Bld) [Mass fraction] 5.0 % 3.8-5.6 [facility] Comment on above: Normal < 5.7 % Predi abetic 5.7 - 6.4 % Diabetic >or= 6.5 % Please note range changes. Absolute lymphocyte countOrd ered By: Paco Norman on 03-26-2023 Lymphocytes Auto (Unsp spec) [#/Vol] 0.89 10*3/uL 0.83-4.51 [facility] Basophil percentageOrdered B y: Paco Norman on 03-26-2023 Basophil percentage 100 mg/dL 74-106 [facility] Basophil percentage 5.6 g/dL 6.4-8.2 [facility] Basophil percentage 0.50 mg/dL 0.20-1.00 [facility] Basophil percentage 142 mmol/L 136-145 [facility] Basophil percentage 4.3 mmol/L 3.5-5.1 [facility] Basophil percentage 112 mmol/L 98-107 [facility] Basophil percentage 152 U/L 87-241 [facility] Basophils (Bld) [#/Vol] 6.4 10*3/uL 4.4-11.0 [facility] Basophils (Bld) [#/Vol] 4.7 10*3/uL 2.0-7.7 [facility] Basophils/100 WBC (Bld) 73.6 % 47-70 [facility] Basophils/100 WBC (Bld) 3.4 % 0-5 [facility] Basophils/100 WBC (Bld) 0.5 % 0-1 [facility] Bilirubin [Mass/Vol] 0.50 mg/dL 0.20-1.00 [facility] Comment on above: For patients on eltr ombopag therapy, use of Dimension [place] TBIL is not recommended. Chloride [Moles/Vol] 112 mmol/L 98-107 [facility] Eosinophils/100 WBC (Bld) 3.4 % 0-5 [facility] Glucose [Mass/Vol] 100 mg/dL 74-106 [facility] Comment on above: Fasting Glucose resu lt from 100 to 125 mg/dL suggests IMPAIRED HOMEOSTASIS per A.D.A. criteria. LDH [Catalytic activity/Vol] 152 U/L 87-241 [facility] Neutrophils (Bld) [#/Vol] 4.7 10*3/uL 2.0-7.7 [facility] Neutrophils/100 WBC (Bld) 73.6 % 47-70 [facility] Potassium [Moles/Vol] 4.3 mmol/L 3.5-5.1 [facility] Protein [Mass/Vol] 5.6 g/dL 6.4-8.2 [facility] Sodium [Moles/Vol] 142 mmol/L 136-145 [facility] WBC (Bld) [#/Vol] 6.4 10*3/uL 4.4-11.0 [facility] Blood erythrocytes count (nu mber/volume)Ordered By: Paco Norman on 03-26-2023 RBC (Bld) [#/Vol] 2.60 10*6/uL 4.6-6.2 [facility] Blood hemoglobin measurement (mass/volume)Ordered By: Paco Norman on 03-26-2023 Hemoglobin (Bld) [Mass/Vol] 8.7 g/dL 13.0-16.5 [facility] Blood lymphocytes/100 leukoc ytesOrdered By: Paco Norman on 03-26-2023 Lymphocytes/100 WBC (Bld) 13.9 % 19-41 [facility] Blood monocytes/100 leukocyt esOrdered By: Paco Norman on 03-26-2023 Monocytes/100 WBC (Bld) 8.4 % 0-10 [facility] Blood platelet mean volumeOr dered By: Paco Norman on 03-26-2023 Platelet mean volume (Bld) [Entitic vol] 10.3 fL 6.2-12.0 [facility] Determination of erythrocyte mean corpuscular volume (MCV)Ordered By: monse Norman on 03-26-2023 MCV (RBC) [Entitic vol] 105.4 fL 80-94 [facility] Direct bilirubinOrdered By: [facility] Tacosreedhar on 03-26-2023 Bilirubin.direct [Mass/Vol] 0.18 mg/dL 0.00-0.30 [facility] Hematocrit Auto (Bld) [Volum e fraction][facility] 03-26-2023 Hematocrit (Bld) [Volume fraction] 27.4 % 40-54 [facility] Iron measurement (mass/mass) Ordered By: [facility] on 03-26-2023 Iron (Unsp spec) [Mass/Mass] 15 ug/dL 65-175 [facility] Laboratory - Chemistry and C hemistry - challengeOrdered By: [facility] on 03-26-2023 ALP [Catalytic activity/Vol] 89 U/L 45-117 [facility] ALT [Catalytic activity/Vol] 14 U/L 16-61 [facility] CO2 [Moles/Vol] 27.0 mmol/L 21.0-32.0 [facility] Cobalamin (Vitamin B12) [Mass/Vol] 501 pg/mL 211-911 [facility] Globulin (S) [Mass/Vol] 2.7 g/dL 2.2-4.2 [facility] Urea nitrogen/Creatinine [Mass ratio] 25.2 mg/mg 10-20 [facility] Laboratory - Hematology and Cell countsOrdered By: [facility] Tacosreedhar on 03-26-2023 Erythrocyte distribution width (RBC) [Entitic vol] 64.1 fL 35.1-43.9 [facility] Erythrocyte distribution width (RBC) [Ratio] 16.4 % 11.6-14.6 [facility] Immature granulocytes/100 WBC (Bld) 0.200 % 0.0-0.9 [facility] Comment on above: IG% - Immature Granu locytes (promyelocytes, myelocytes and metamyelocytes) > 1% indicates that a LEFT SHIFT is Present. MCH (RBC) [Entitic mass] 33.5 pg 27.0-32.0 [facility] Nucleated RBC/100 WBC (Bld) [Ratio] 0 % 0-5 [facility] MCHC Auto (RBC) [Mass/Vol]Or dered By: Paco Norman on 03-26-2023 MCHC (RBC) [Mass/Vol] 31.8 g/dL 32-36 [facility] No Panel InformationOrdered By: Paco Norman on 03-26-2023 Estimated GFR (MDRD) Amer 37 mL/min >60 [facility] Comment on above: GFR Calc Estimated GFR (MDRD) Non-Af Amer 30 mL/min >60 [facility] Comment on above: Non- GFR Calc Total Iron Binding Capacity 198 ug/dL 250-450 [facility] 33.5 pg 27.0-32.0 [facility] 16.4 % 11.6-14.6 [facility] 64.1 fl 35.1-43.9 [facility] 0.200 % 0.0-0.9 [facility] 0 % 0-5 [facility] 30 mL/min >60 [facility] 37 mL/min >60 [facility] 25.2 RATIO 10-20 [facility] 2.7 g/dL 2.2-4.2 [facility] 89 U/L 45-117 [facility] 14 U/L 16-61 [facility] 27.0 mmol/L 21.0-32.0 [facility] 501 pg/mL 211-911 [facility] 198 ug/dL 250-450 [facility] Platelets bldOrdered By: Rajendra Norman on 03-26-2023 Platelets (Bld) [#/Vol] 106 10*3/uL 150-450 [facility] Serum or plasma albumin elvia urement (mass/volume)Ordered By: Paco Norman on 03-26-2023 Albumin [Mass/Vol] 2.9 g/dL 3.2-5.0 [facility] Serum or plasma albumin/glob ulin mass ratioOrdered By: Paco Norman on 03-26-2023 Albumin/Globulin [Mass ratio] 1.1 {ratio} 0.9-2.4 [facility] Serum or plasma calcium elvia urement (mass/volume)Ordered By: Paco Norman on 03-26-2023 Calcium [Mass/Vol] 8.6 mg/dL 8.5-10.1 [facility] Serum or plasma creatinine m easurement (mass/volume)Ordered By: Paco Norman on 03-26-2023 Creatinine [Mass/Vol] 2.22 mg/dL 0.70-1.30 [facility] Comment on above: The validity of the calculated GFR & GFRAA in patients over 70 years has not been determined. Clinical correlation is essential. Serum or plasma erythropoiet in (EPO) measurement (units/volume)Ordered By: Paco Norman on 03-26-2023 Erythropoietin (EPO) Qn 17.3 mIU/mL 2.6-18.5 [facility] Comment on above: Reevoo el DxI 800 Immunoassay SystemValues obtained with different assay methods or kits cannotbe used interchangeably. Results cannot be interpreted asabsolute evidence of the presence or absence of malignantdisease.Performed at: [employer] [address] [id number] Director: Amaury Raya PhD, Phone: [phone] Serum or plasma ferritin pedro luis surement (mass/volume)Ordered By: Paco Norman on 03-26-2023 Ferritin [Mass/Vol] 602 ng/mL 26-388 [facility] Serum or plasma folate measu rement (mass/volume)Ordered By: Paco Norman on 03-26-2023 Folate [Mass/Vol] 28.90 ng/mL 3.1-55.4 [facility] Serum or plasma iron saturat ion measurement (mass fraction)Ordered By: Paco Norman on 03-26-2023 Iron saturation [Mass fraction] 7.6 % 15.0-55.0 [facility] Serum or plasma urea nitroge n measurement (mass/volume)Ordered By: Paco Norman on 03-26-2023 Urea nitrogen [Mass/Vol] 56 mg/dL 7-18 [facility] Thin prep Papanicolaou smear with manual screeningOrdered By: Paco Norman on 03-26-2023 Thin prep Papanicolaou smear with manual screening 7 U/L 15-37 [facility] Thin prep Papanicolaou smear with manual screening 3 5-15 [facility] Basophil percentageOrdered B y: Paco Norman on 03-25-2023 Basophil percentage 5.4 g/dL 6.4-8.2 [facility] Basophil percentage 0.50 mg/dL 0.20-1.00 [facility] Basophil percentage 83 mg/dL <200 [facility] Basophil percentage 47 mg/dL <199 [facility] Bilirubin [Mass/Vol] 0.50 mg/dL 0.20-1.00 [facility] Comment on above: For patients on eltr ombopag therapy, use of Dimension [place] TBIL is not recommended. Cholesterol [Mass/Vol] 83 mg/dL <200 [facility] Comment on above: <200 mg/dL Desirable 200-240 mg/dL Borderline >240 mg/dL High Risk Protein [Mass/Vol] 5.4 g/dL 6.4-8.2 [facility] Triglyceride [Mass/Vol] 47 mg/dL <199 [facility] Comment on above: The drugs N-Acetylcy steine and Metamizole may falsely depress this assay.Serum Triglycerides Reference Interval Normal <150 mg/dL Borderline high 150 - 199 mg/dL High 200 - 499 mg/dL Very High > or = 500 mg/dL Direct bilirubinOrdered By: Paco Norman on 03-25-2023 Bilirubin.direct [Mass/Vol] 0.14 mg/dL 0.00-0.30 [facility] - Chemistry and C hemistry - challengeOrdered By: Paco Norman on 03-25-2023 ALP [Catalytic activity/Vol] 90 U/L 45-117 [facility] ALT [Catalytic activity/Vol] 14 U/L 16-61 [facility] Globulin (S) [Mass/Vol] 2.5 g/dL 2.2-4.2 [facility] No Panel InformationOrdered By: Paco Norman on 03-25-2023 Thyroid Stimulating Hormone (TSH) 0.35 uIU/mL 0.358-3.74 [facility] 2.5 g/dL 2.2-4.2 [facility] 90 U/L 45-117 [facility] 14 U/L 16-61 [facility] 0.35 uIU/mL 0.358-3.74 [facility] Serum or plasma albumin elvia urement (mass/volume)Ordered By: Paco Norman on 03-25-2023 Albumin [Mass/Vol] 2.9 g/dL 3.2-5.0 [facility] Serum or plasma cholesterol in HDL measurement (mass/volume)Ordered By: Paco Norman on 03-25-2023 Cholesterol in HDL [Mass/Vol] 52 mg/dL >40 [facility] Comment on above: The drugs N-Acetylcy steine and Metamizole may falsely depress this assay. Reference Range HDL <40 mg/dL Low HDL Cholesterol HDL >or= 60 mg/dL High HDL Cholesterol Serum or plasma cholesterol in VLDL measurement (mass/volume)Ordered By: Paco Norman on 03-25-2023 Cholesterol in VLDL [Mass/Vol] 9 mg/dL 5-40 [facility] Serum or plasma low density lipoprotein (LDL) cholesterol measurement (mass/volume)Ordered By: Paco Norman on 03-25-2023 Cholesterol in LDL [Mass/Vol] 22 mg/dL 0-130 [facility] Thin prep Papanicolaou smear with manual screeningOrdered By: Paco Norman on 03-25-2023 Thin prep Papanicolaou smear with manual screening 9 U/L 15-37 [facility] Absolute lymphocyte countOrd ered By: Paco Norman on 03-19-2023 Lymphocytes Auto (Unsp spec) [#/Vol] 0.84 10*3/uL 0.83-4.51 [facility] Basophil percentageOrdered B y: Paco Norman on 03-19-2023 Basophil percentage 98 mg/dL 74-106 [facility] Basophil percentage 140 mmol/L 136-145 [facility] Basophil percentage 4.0 mmol/L 3.5-5.1 [facility] Basophil percentage 109 mmol/L 98-107 [facility] Basophils (Bld) [#/Vol] 3.8 10*3/uL 4.4-11.0 [facility] Basophils (Bld) [#/Vol] 2.2 10*3/uL 2.0-7.7 [facility] Basophils/100 WBC (Bld) 56.9 % 47-70 [facility] Basophils/100 WBC (Bld) 8.6 % 0-5 [facility] Basophils/100 WBC (Bld) 0.8 % 0-1 [facility] Chloride [Moles/Vol] 109 mmol/L 98-107 [facility] Eosinophils/100 WBC (Bld) 8.6 % 0-5 [facility] Glucose [Mass/Vol] 98 mg/dL 74-106 [facility] Neutrophils (Bld) [#/Vol] 2.2 10*3/uL 2.0-7.7 [facility] Neutrophils/100 WBC (Bld) 56.9 % 47-70 [facility] Potassium [Moles/Vol] 4.0 mmol/L 3.5-5.1 [facility] Sodium [Moles/Vol] 140 mmol/L 136-145 [facility] WBC (Bld) [#/Vol] 3.8 10*3/uL 4.4-11.0 [facility] Blood erythrocytes count (nu mber/volume)Ordered By: Paco Norman on 03-19-2023 RBC (Bld) [#/Vol] 2.78 10*6/uL 4.6-6.2 [facility] Blood hemoglobin measurement (mass/volume)Ordered By: Paco Norman on 03-19-2023 Hemoglobin (Bld) [Mass/Vol] 9.0 g/dL 13.0-16.5 [facility] Blood lymphocytes/100 leukoc ytesOrdered By: Paco Norman on 03-19-2023 Lymphocytes/100 WBC (Bld) 21.9 % 19-41 [facility] Blood monocytes/100 leukocyt esOrdered By: Paco Norman on 03-19-2023 Monocytes/100 WBC (Bld) 11.5 % 0-10 [facility] Blood platelet mean volumeOr dered By: Paco Norman on 03-19-2023 Platelet mean volume (Bld) [Entitic vol] 10.0 fL 6.2-12.0 [facility] Determination of erythrocyte mean corpuscular volume (MCV)Ordered By: Paco Norman on 03-19-2023 MCV (RBC) [Entitic vol] 106.1 fL 80-94 [facility] Hematocrit Auto (Bld) [Volum e fraction]Ordered By: Paco Norman on 03-19-2023 Hematocrit (Bld) [Volume fraction] 29.5 % 40-54 [facility] - Chemistry and C hemistry - challengeOrdered By: pillomastersondel Norman on 03-19-2023 CO2 [Moles/Vol] 29.0 mmol/L 21.0-32.0 [facility] Urea nitrogen/Creatinine [Mass ratio] 24.3 mg/mg 10-20 [facility] - Hematology and Cell countsOrdered By: Riazmastersondel Norman on 03-19-2023 Erythrocyte distribution width (RBC) [Entitic vol] 62.4 fL 35.1-43.9 [facility] Erythrocyte distribution width (RBC) [Ratio] 15.9 % 11.6-14.6 [facility] Immature granulocytes/100 WBC (Bld) 0.300 % 0.0-0.9 [facility] Comment on above: IG% - Immature Granu locytes (promyelocytes, myelocytes and metamyelocytes) > 1% indicates that a LEFT SHIFT is Present. MCH (RBC) [Entitic mass] 32.4 pg 27.0-32.0 [facility] Nucleated RBC/100 WBC (Bld) [Ratio] 0 % 0-5 [facility] MCHC Auto (RBC) [Mass/Vol]Or dered By: Paco Norman on 03-19-2023 MCHC (RBC) [Mass/Vol] 30.5 g/dL 32-36 [facility] No Panel InformationOrdered By: Paco Norman on 03-19-2023 Estimated GFR (MDRD) Amer 35 mL/min >60 [facility] Comment on above: GFR Calc Estimated GFR (MDRD) Non-Af Amer 29 mL/min >60 [facility] Comment on above: Non- GFR Calc 32.4 pg 27.0-32.0 [facility] 15.9 % 11.6-14.6 [facility] 62.4 fl 35.1-43.9 [facility] 0.300 % 0.0-0.9 [facility] 0 % 0-5 [facility] 29 mL/min >60 [facility] 35 mL/min >60 [facility] 24.3 RATIO 10-20 [facility] 29.0 mmol/L 21.0-32.0 [facility] Platelets bldOrdered By: Rajendra Norman on 03-19-2023 Platelets (Bld) [#/Vol] 127 10*3/uL 150-450 [facility] Serum or plasma calcium elvia urement (mass/volume)Ordered By: Paco Norman on 03-19-2023 Calcium [Mass/Vol] 9.2 mg/dL 8.5-10.1 [facility] Serum or plasma creatinine m easurement (mass/volume)Ordered By: Paco Norman on 03-19-2023 Creatinine [Mass/Vol] 2.30 mg/dL 0.70-1.30 [facility] Comment on above: The validity of the calculated GFR & GFRAA in patients over 70 years has not been determined. Clinical correlation is essential. Serum or plasma urea nitroge n measurement (mass/volume)Ordered By: Paco Norman on 03-19-2023 Urea nitrogen [Mass/Vol] 56 mg/dL 7-18 [facility] Thin prep Papanicolaou smear with manual screeningOrdered By: Paco Norman on 03-19-2023 Thin prep Papanicolaou smear with manual screening 2 5-15 [facility] Absolute lymphocyte countOrd ered By: Paco Norman on 03-12-2023 Lymphocytes Auto (Unsp spec) [#/Vol] 0.98 10*3/uL 0.83-4.51 [facility] Basophil percentageOrdered B y: Paco Norman on 03-12-2023 Basophil percentage 96 mg/dL 74-106 [facility] Basophil percentage 142 mmol/L 136-145 [facility] Basophil percentage 4.4 mmol/L 3.5-5.1 [facility] Basophil percentage 111 mmol/L 98-107 [facility] Basophils (Bld) [#/Vol] 4.1 10*3/uL 4.4-11.0 [facility] Basophils (Bld) [#/Vol] 2.3 10*3/uL 2.0-7.7 [facility] Basophils/100 WBC (Bld) 55.1 % 47-70 [facility] Basophils/100 WBC (Bld) 9.5 % 0-5 [facility] Basophils/100 WBC (Bld) 0.5 % 0-1 [facility] Chloride [Moles/Vol] 111 mmol/L 98-107 [facility] Eosinophils/100 WBC (Bld) 9.5 % 0-5 [facility] Glucose [Mass/Vol] 96 mg/dL 74-106 [facility] Neutrophils (Bld) [#/Vol] 2.3 10*3/uL 2.0-7.7 [facility] Neutrophils/100 WBC (Bld) 55.1 % 47-70 [facility] Potassium [Moles/Vol] 4.4 mmol/L 3.5-5.1 [facility] Sodium [Moles/Vol] 142 mmol/L 136-145 [facility] WBC (Bld) [#/Vol] 4.1 10*3/uL 4.4-11.0 [facility] Blood erythrocytes count (nu mber/volume)Ordered By: Paco Norman on 03-12-2023 RBC (Bld) [#/Vol] 2.66 10*6/uL 4.6-6.2 [facility] Blood hemoglobin measurement (mass/volume)Ordered By: Paco Norman on 03-12-2023 Hemoglobin (Bld) [Mass/Vol] 8.6 g/dL 13.0-16.5 [facility] Blood lymphocytes/100 leukoc ytesOrdered By: Paco Norman on 03-12-2023 Lymphocytes/100 WBC (Bld) 23.8 % 19-41 [facility] Blood monocytes/100 leukocyt esOrdered By: Paco Norman on 03-12-2023 Monocytes/100 WBC (Bld) 10.9 % 0-10 [facility] Blood platelet mean volumeOr dered By: Pcao Norman on 03-12-2023 Platelet mean volume (Bld) [Entitic vol] 10.3 fL 6.2-12.0 [facility] Determination of erythrocyte mean corpuscular volume (MCV)Ordered By: Paco Norman on 03-12-2023 MCV (RBC) [Entitic vol] 106.4 fL 80-94 [facility] Hematocrit Auto (Bld) [Volum e fraction]Ordered By: Paco Norman on 03-12-2023 Hematocrit (Bld) [Volume fraction] 28.3 % 40-54 [facility] - Chemistry and C hemistry - challengeOrdered By: [facility] on 03-12-2023 CO2 [Moles/Vol] 27.0 mmol/L 21.0-32.0 [facility] Urea nitrogen/Creatinine [Mass ratio] 25.1 mg/mg 10-20 [facility] - Hematology and Cell countsOrdered By: pillomastersondel Norman on 03-12-2023 Erythrocyte distribution width (RBC) [Entitic vol] 63.9 fL 35.1-43.9 [facility] Erythrocyte distribution width (RBC) [Ratio] 16.1 % 11.6-14.6 [facility] Immature granulocytes/100 WBC (Bld) 0.200 % 0.0-0.9 [facility] Comment on above: IG% - Immature Granu locytes (promyelocytes, myelocytes and metamyelocytes) > 1% indicates that a LEFT SHIFT is Present. MCH (RBC) [Entitic mass] 32.3 pg 27.0-32.0 [facility] Nucleated RBC/100 WBC (Bld) [Ratio] 0 % 0-5 [facility] MCHC Auto (RBC) [Mass/Vol]Or dered By: pillomastersondel Norman on 03-12-2023 MCHC (RBC) [Mass/Vol] 30.4 g/dL 32-36 [facility] No Panel InformationOrdered By: Paco Norman on 03-12-2023 Estimated GFR (MDRD) Amer 39 mL/min >60 [facility] Comment on above: GFR Calc Estimated GFR (MDRD) Non-Af Amer 32 mL/min >60 [facility] Comment on above: Non- GFR Calc 32.3 pg 27.0-32.0 [facility] 16.1 % 11.6-14.6 [facility] 63.9 fl 35.1-43.9 [facility] 0.200 % 0.0-0.9 [facility] 0 % 0-5 [facility] 32 mL/min >60 [facility] 39 mL/min >60 [facility] 25.1 RATIO 10-20 [facility] 27.0 mmol/L 21.0-32.0 [facility] Platelets bldOrdered By: Rajendra Norman on 03-12-2023 Platelets (Bld) [#/Vol] 126 10*3/uL 150-450 [facility] Serum or plasma calcium elvia urement (mass/volume)Ordered By: Paco Norman on 03-12-2023 Calcium [Mass/Vol] 8.9 mg/dL 8.5-10.1 [facility] Serum or plasma creatinine m easurement (mass/volume)Ordered By: Paco Norman on 03-12-2023 Creatinine [Mass/Vol] 2.11 mg/dL 0.70-1.30 [facility] Comment on above: The validity of the calculated GFR & GFRAA in patients over 70 years has not been determined. Clinical correlation is essential. Serum or plasma urea nitroge n measurement (mass/volume)Ordered By: Paco Norman on 03-12-2023 Urea nitrogen [Mass/Vol] 53 mg/dL 7-18 [facility] Thin prep Papanicolaou smear with manual screeningOrdered By: Paco Norman on 03-12-2023 Thin prep Papanicolaou smear with manual screening 4 5-15 [facility] Absolute lymphocyte countOrd ered By: Paco Norman on 03-05-2023 Lymphocytes Auto (Unsp spec) [#/Vol] 0.99 10*3/uL 0.83-4.51 [facility] Basophil percentageOrdered B y: Paco Norman on 03-05-2023 Basophil percentage 92 mg/dL 74-106 [facility] Basophil percentage 144 mmol/L 136-145 [facility] Basophil percentage 4.3 mmol/L 3.5-5.1 [facility] Basophil percentage 114 mmol/L 98-107 [facility] Basophils (Bld) [#/Vol] 4.2 10*3/uL 4.4-11.0 [facility] Basophils (Bld) [#/Vol] 2.4 10*3/uL 2.0-7.7 [facility] Basophils/100 WBC (Bld) 57.7 % 47-70 [facility] Basophils/100 WBC (Bld) 8.1 % 0-5 [facility] Basophils/100 WBC (Bld) 0.7 % 0-1 [facility] Chloride [Moles/Vol] 114 mmol/L 98-107 [facility] Eosinophils/100 WBC (Bld) 8.1 % 0-5 [facility] Glucose [Mass/Vol] 92 mg/dL 74-106 [facility] Neutrophils (Bld) [#/Vol] 2.4 10*3/uL 2.0-7.7 [facility] Neutrophils/100 WBC (Bld) 57.7 % 47-70 [facility] Potassium [Moles/Vol] 4.3 mmol/L 3.5-5.1 [facility] Sodium [Moles/Vol] 144 mmol/L 136-145 [facility] WBC (Bld) [#/Vol] 4.2 10*3/uL 4.4-11.0 [facility] Blood erythrocytes count (nu mber/volume)Ordered By: Paco Norman on 03-05-2023 RBC (Bld) [#/Vol] 2.70 10*6/uL 4.6-6.2 [facility] Blood hemoglobin measurement (mass/volume)Ordered By: Paco Norman on 03-05-2023 Hemoglobin (Bld) [Mass/Vol] 8.8 g/dL 13.0-16.5 [facility] Blood lymphocytes/100 leukoc ytesOrdered By: Paco Norman on 03-05-2023 Lymphocytes/100 WBC (Bld) 23.7 % 19-41 [facility] Blood monocytes/100 leukocyt esOrdered By: monse Norman on 03-05-2023 Monocytes/100 WBC (Bld) 9.6 % 0-10 [facility] Blood platelet mean volumeOr dered By: Paco Norman on 03-05-2023 Platelet mean volume (Bld) [Entitic vol] 9.8 fL 6.2-12.0 [facility] Determination of erythrocyte mean corpuscular volume (MCV)Ordered By: Paco Norman on 03-05-2023 MCV (RBC) [Entitic vol] 105.9 fL 80-94 [facility] Hematocrit Auto (Bld) [Volum e fraction]Ordered By: Paco Norman on 03-05-2023 Hematocrit (Bld) [Volume fraction] 28.6 % 40-54 [facility] - Chemistry and C hemistry - challengeOrdered By[facility] 03-05-2023 CO2 [Moles/Vol] 28.0 mmol/L 21.0-32.0 [facility] Urea nitrogen/Creatinine [Mass ratio] 29.4 mg/mg 10-20 [facility] - Hematology and Cell countsOrdered By: Paco Norman on 03-05-2023 Erythrocyte distribution width (RBC) [Entitic vol] 62.3 fL 35.1-43.9 [facility] Erythrocyte distribution width (RBC) [Ratio] 16.0 % 11.6-14.6 [facility] Immature granulocytes/100 WBC (Bld) 0.200 % 0.0-0.9 [facility] Comment on above: IG% - Immature Granu locytes (promyelocytes, myelocytes and metamyelocytes) > 1% indicates that a LEFT SHIFT is Present. MCH (RBC) [Entitic mass] 32.6 pg 27.0-32.0 [facility] Nucleated RBC/100 WBC (Bld) [Ratio] 0 % 0[facility] ([facility] [Mass/Vol]Or dered By: Paco Norman on 03-05-2023 MCHC (RBC) [Mass/Vol] 30.8 g/dL 32-36 [facility] No Panel InformationOrdered By: Paco Norman on 03-05-2023 Estimated GFR (MDRD) Amer 41 mL/min >60 [facility] Comment on above: GFR Calc Estimated GFR (MDRD) Non-Af Amer 34 mL/min >60 [facility] Comment on above: Non- GFR Calc 32.6 pg 27.0-32.0 [facility] 16.0 % 11.6-14.6 [facility] 62.3 fl 35.1-43.9 [facility] 0.200 % 0.0-0.9 [facility] 0 % 0-5 [facility] 34 mL/min >60 [facility] 41 mL/min >60 [facility] 29.4 RATIO 10-20 [facility] 28.0 mmol/L 21.0-32.0 [facility] Platelets bldOrdered By: Rajendra Norman on 03-05-2023 Platelets (Bld) [#/Vol] 131 10*3/uL 150-450 [facility] Serum or plasma calcium elvia urement (mass/volume)Ordered By: Paco Norman on 03-05-2023 Calcium [Mass/Vol] 9.0 mg/dL 8.5-10.1 [facility] Serum or plasma creatinine m easurement (mass/volume)Ordered By: Paco Norman on 03-05-2023 Creatinine [Mass/Vol] 2.01 mg/dL 0.70-1.30 [facility] Comment on above: The validity of the calculated GFR & GFRAA in patients over 70 years has not been determined. Clinical correlation is essential. Serum or plasma urea nitroge n measurement (mass/volume)Ordered By: Paco Norman on 03-05-2023 Urea nitrogen [Mass/Vol] 59 mg/dL 7-18 [facility] Thin prep Papanicolaou smear with manual screeningOrdered By: Paco Norman on 03-05-2023 Thin prep Papanicolaou smear with manual screening 2 5-15 [facility] Absolute lymphocyte countOrd ered By: Paco Norman on 02-26-2023 Lymphocytes Auto (Unsp spec) [#/Vol] 0.96 10*3/uL 0.83-4.51 [facility] Basophil percentageOrdered B y: Paco Norman on 02-26-2023 Basophil percentage 94 mg/dL 74-106 [facility] Basophil percentage 142 mmol/L 136-145 [facility] Basophil percentage 4.5 mmol/L 3.5-5.1 [facility] Basophil percentage 109 mmol/L 98-107 [facility] Basophils (Bld) [#/Vol] 4.2 10*3/uL 4.4-11.0 [facility] Basophils (Bld) [#/Vol] 2.3 10*3/uL 2.0-7.7 [facility] Basophils/100 WBC (Bld) 54.1 % 47-70 [facility] Basophils/100 WBC (Bld) 9.6 % 0-5 [facility] Basophils/100 WBC (Bld) 1.0 % 0-1 [facility] Chloride [Moles/Vol] 109 mmol/L 98-[facility] WBC (Bld) 9.6 % 0-5 [facility] Glucose [Mass/Vol] 94 mg/dL 74-106 [facility] Neutrophils (Bld) [#/Vol] 2.3 10*3/uL 2.0-7.7 [facility] Neutrophils/100 WBC (Bld) 54.1 % 47-70 [facility] Potassium [Moles/Vol] 4.5 mmol/L 3.5-5.1 [facility] Sodium [Moles/Vol] 142 mmol/L 136-145 [facility] WBC (Bld) [#/Vol] 4.2 10*3/uL 4.4-11.0 [facility] Blood erythrocytes count (nu mber/volume)Ordered By: Paco Norman on 02-26-2023 RBC (Bld) [#/Vol] 2.65 10*6/uL 4.6-6.2 [facility] Blood hemoglobin measurement (mass/volume)Ordered By: Paco Norman on 02-26-2023 Hemoglobin (Bld) [Mass/Vol] 8.5 g/dL 13.0-16.5 [facility] Blood lymphocytes/100 leukoc ytesOrdered By: Paco Norman on 02-26-2023 Lymphocytes/100 WBC (Bld) 23.1 % 19-41 [facility] Blood monocytes/100 leukocyt esOrdered By: monse Norman on 02-26-2023 Monocytes/100 WBC (Bld) 12.0 % 0-10 [facility] Blood platelet mean volumeOr dered By: Paco Norman on 02-26-2023 Platelet mean volume (Bld) [Entitic vol] 9.9 fL 6.2-12.0 [facility] Determination of erythrocyte mean corpuscular volume (MCV)Ordered By: Paco Norman on 02-26-2023 MCV (RBC) [Entitic vol] 106.0 fL 80-94 [facility] Hematocrit Auto (Bld) [Volum e fraction]Ordered By: pillomastersondel Norman on 02-26-2023 Hematocrit (Bld) [Volume fraction] 28.1 % 40-54 [facility] Laboratory - Chemistry and C hemistry - challengeOrdered By: Paco Norman on 02-26-2023 CO2 [Moles/Vol] 28.0 mmol/L 21.0-32.0 [facility] Urea nitrogen/Creatinine [Mass ratio] 25.7 mg/mg 10-20 [facility] - Hematology and Cell countsOrdered By: Paco Norman on 02-26-2023 Erythrocyte distribution width (RBC) [Entitic vol] 61.8 fL 35.1-43.9 [facility] Erythrocyte distribution width (RBC) [Ratio] 15.9 % 11.6-14.6 [facility] Immature granulocytes/100 WBC (Bld) 0.200 % 0.0-0.9 [facility] Comment on above: IG% - Immature Granu locytes (promyelocytes, myelocytes and metamyelocytes) > 1% indicates that a LEFT SHIFT is Present. MCH (RBC) [Entitic mass] 32.1 pg 27.0-32.0 [facility] Nucleated RBC/100 WBC (Bld) [Ratio] 0 % 0-5 [facility] MCHC Auto (RBC) [Mass/Vol]Or dered By: Paco Norman on 02-26-2023 MCHC (RBC) [Mass/Vol] 30.2 g/dL 32-36 [facility] No Panel InformationOrdered By: Paco Norman on 02-26-2023 Estimated GFR (MDRD) Amer 35 mL/min >60 [facility] Comment on above: GFR Calc Estimated GFR (MDRD) Non-Af Amer 29 mL/min >60 [facility] Comment on above: Non- GFR Calc 32.1 pg 27.0-32.0 [facility] 15.9 % 11.6-14.6 [facility] 61.8 fl 35.1-43.9 [facility] 0.200 % 0.0-0.9 [facility] 0 % 0-5 [facility] 29 mL/min >60 [facility] 35 mL/min >60 [facility] 25.7 RATIO 10-20 [facility] 28.0 mmol/L 21.0-32.0 [facility] Platelets bldOrdered By: Rajendra Norman on 02-26-2023 Platelets (Bld) [#/Vol] 137 10*3/uL 150-450 [facility] Serum or plasma calcium elvia urement (mass/volume)Ordered By: Paco Norman on 02-26-2023 Calcium [Mass/Vol] 9.2 mg/dL 8.5-10.1 [facility] Serum or plasma creatinine m easurement (mass/volume)Ordered By: Paco Norman on 02-26-2023 Creatinine [Mass/Vol] 2.30 mg/dL 0.70-1.30 [facility] Comment on above: The validity of the calculated GFR & GFRAA in patients over 70 years has not been determined. Clinical correlation is essential. Serum or plasma urea nitroge n measurement (mass/volume)Ordered By: Paco Norman on 02-26-2023 Urea nitrogen [Mass/Vol] 59 mg/dL 7-18 [facility] Thin prep Papanicolaou smear with manual screeningOrdered By: Paco Norman on 02-26-2023 Thin prep Papanicolaou smear with manual screening 5 5-15 [facility] Absolute lymphocyte countOrd ered By: [facility] on [facility]-19-2023 Lymphocytes Auto (Unsp spec) [#/Vol] 0.83 10*3/uL 0.83-4.51 [facility] Basophil percentageOrdered B y: monse Norman on 02-19-2023 Basophil percentage 92 mg/dL 74-106 [facility] Basophil percentage 139 mmol/L 136-145 [facility] Basophil percentage 4.4 mmol/L 3.5-5.1 [facility] Basophil percentage 109 mmol/L 98-107 [facility] Basophils (Bld) [#/Vol] 3.8 10*3/uL 4.4-11.0 [facility] Basophils (Bld) [#/Vol] 2.2 10*3/uL 2.0-7.7 [facility] Basophils/100 WBC (Bld) 57.1 % 47-70 [facility] Basophils/100 WBC (Bld) 8.9 % 0-5 [facility] Basophils/100 WBC (Bld) 0.8 % 0-1 [facility] Chloride [Moles/Vol] 109 mmol/L 98-107 [facility] Eosinophils/100 WBC (Bld) 8.9 % 0-5 [facility] Glucose [Mass/Vol] 92 mg/dL 74-106 [facility] Neutrophils (Bld) [#/Vol] 2.2 10*3/uL 2.0-7.7 [facility] Neutrophils/100 WBC (Bld) 57.1 % 47-70 [facility] Potassium [Moles/Vol] 4.4 mmol/L 3.5-5.1 [facility] Sodium [Moles/Vol] 139 mmol/L 136-145 [facility] WBC (Bld) [#/Vol] 3.8 10*3/uL 4.4-11.0 [facility] Blood erythrocytes count (nu mber/volume)Ordered By: Paco Norman on 02-19-2023 RBC (Bld) [#/Vol] 2.54 10*6/uL 4.6-6.2 [facility] Blood hemoglobin measurement (mass/volume)Ordered By: Paco Norman on 02-19-2023 Hemoglobin (Bld) [Mass/Vol] 8.1 g/dL 13.0-16.5 [facility] Blood lymphocytes/100 leukoc ytesOrdered By: pillomastersondel Norman on 02-19-2023 Lymphocytes/100 WBC (Bld) 21.8 % 19-41 [facility] Blood monocytes/100 leukocyt esOrdered By: Paco Norman on 02-19-2023 Monocytes/100 WBC (Bld) 11.1 % 0-10 [facility] Blood platelet mean volumeOr dered By: Paco Norman on 02-19-2023 Platelet mean volume (Bld) [Entitic vol] 9.8 fL 6.2-12.0 [facility] Determination of erythrocyte mean corpuscular volume (MCV)Ordered By: Paco Norman on 02-19-2023 MCV (RBC) [Entitic vol] 104.3 fL 80-94 [facility] Hematocrit Auto (Bld) [Volum e fraction]Ordered By: Paco Norman on 02-19-2023 Hematocrit (Bld) [Volume fraction] 26.5 % 40-54 [facility] - Chemistry and C hemistry - challengeOrdered By: Paco Norman on 02-19-2023 CO2 [Moles/Vol] 28.0 mmol/L 21.0-32.0 [facility] Urea nitrogen/Creatinine [Mass ratio] 25.4 mg/mg 10-20 [facility] - Hematology and Cell countsOrdered By: Paco Norman on 02-19-2023 Erythrocyte distribution width (RBC) [Entitic vol] 61.2 fL 35.1-43.9 [facility] Erythrocyte distribution width (RBC) [Ratio] 16.0 % 11.6-14.6 [facility] Immature granulocytes/100 WBC (Bld) 0.300 % 0.0-0.9 [facility] Comment on above: IG% - Immature Granu locytes (promyelocytes, myelocytes and metamyelocytes) > 1% indicates that a LEFT SHIFT is Present. MCH (RBC) [Entitic mass] 31.9 pg 27.0-32.0 [facility] Nucleated RBC/100 WBC (Bld) [Ratio] 0 % 0-5 [facility] MCHC Auto (RBC) [Mass/Vol]Or dered By: Paco Norman on 02-19-2023 MCHC (RBC) [Mass/Vol] 30.6 g/dL 32-36 [facility] No Panel InformationOrdered By: Paco Norman on 02-19-2023 Estimated GFR (MDRD) Amer 40 mL/min >60 [facility] Comment on above: GFR Calc Estimated GFR (MDRD) Non-Af Amer 33 mL/min >60 [facility] Comment on above: Non- GFR Calc 31.9 pg 27.0-32.0 [facility] 16.0 % 11.6-14.6 [facility] 61.2 fl 35.1-43.9 [facility] 0.300 % 0.0-0.9 [facility] 0 % 0-5 [facility] 33 mL/min >60 [facility] 40 mL/min >60 [facility] 25.4 RATIO 10-20 [facility] 28.0 mmol/L 21.0-32.0 [facility] Platelets bldOrdered By: Rajendra Norman on 02-19-2023 Platelets (Bld) [#/Vol] 125 10*3/uL 150-450 [facility] Serum or plasma calcium elvia urement (mass/volume)Ordered By: Paco Norman on 02-19-2023 Calcium [Mass/Vol] 8.8 mg/dL 8.5-10.1 [facility] Serum or plasma creatinine m easurement (mass/volume)Ordered By: Paco Norman on 02-19-2023 Creatinine [Mass/Vol] 2.05 mg/dL 0.70-1.30 [facility] Comment on above: The validity of the calculated GFR & GFRAA in patients over 70 years has not been determined. Clinical correlation is essential. Serum or plasma urea nitroge n measurement (mass/volume)Ordered By: Paco Norman on 02-19-2023 Urea nitrogen [Mass/Vol] 52 mg/dL 7-18 [facility] Thin prep Papanicolaou smear with manual screeningOrdered By: pillomastersondel Norman on 02-19-2023 Thin prep Papanicolaou smear with manual screening 2 5-15 [facility] Absolute lymphocyte countOrd ered By: [facility] on 02-12-2023 Lymphocytes Auto (Unsp spec) [#/Vol] 0.87 10*3/uL 0.83-4.51 [facility] Basophil percentageOrdered B y: monse Norman on 02-12-2023 Basophil percentage 93 mg/dL 74-106 [facility] Basophil percentage 141 mmol/L 136-145 [facility] Basophil percentage 4.4 mmol/L 3.5-5.1 [facility] Basophil percentage 109 mmol/L 98-107 [facility] Basophils (Bld) [#/Vol] 4.1 10*3/uL 4.4-11.0 [facility] Basophils (Bld) [#/Vol] 2.4 10*3/uL 2.0-7.7 [facility] Basophils/100 WBC (Bld) 59.4 % 47-70 [facility] Basophils/100 WBC (Bld) 8.1 % 0-5 [facility] Basophils/100 WBC (Bld) 0.7 % 0-1 [facility] Chloride [Moles/Vol] 109 mmol/L 98-107 [facility] Eosinophils/100 WBC (Bld) 8.1 % 0-5 [facility] Glucose [Mass/Vol] 93 mg/dL 74-106 [facility] Neutrophils (Bld) [#/Vol] 2.4 10*3/uL 2.0-7.7 [facility] Neutrophils/100 WBC (Bld) 59.4 % 47-70 [facility] Potassium [Moles/Vol] 4.4 mmol/L 3.5-5.1 [facility] Sodium [Moles/Vol] 141 mmol/L 136-145 [facility] WBC (Bld) [#/Vol] 4.1 10*3/uL 4.4-11.0 [facility] Blood erythrocytes count (nu mber/volume)Ordered By: Paco Norman on 02-12-2023 RBC (Bld) [#/Vol] 2.53 10*6/uL 4.6-6.2 [facility] Blood hemoglobin measurement (mass/volume)Ordered By: Paco Norman on 02-12-2023 Hemoglobin (Bld) [Mass/Vol] 8.1 g/dL 13.0-16.5 [facility] Blood lymphocytes/100 leukoc ytesOrdered By: Paco Norman on 02-12-2023 Lymphocytes/100 WBC (Bld) 21.3 % 19-41 [facility] Blood monocytes/100 leukocyt esOrdered By: Paco Norman on 02-12-2023 Monocytes/100 WBC (Bld) 10.3 % 0-10 [facility] Blood platelet mean volumeOr dered By: Paco Norman on 02-12-2023 Platelet mean volume (Bld) [Entitic vol] 9.5 fL 6.2-12.0 [facility] Determination of erythrocyte mean corpuscular volume (MCV)Ordered By: Paco Norman on 02-12-2023 MCV (RBC) [Entitic vol] 104.7 fL 80-94 [facility] Hematocrit Auto (Bld) [Volum e fraction]Ordered By: Paco Noramn on 02-12-2023 Hematocrit (Bld) [Volume fraction] 26.5 % 40-54 [facility] - Chemistry and C hemistry - challengeOrdered By: Paco Norman on 02-12-2023 CO2 [Moles/Vol] 29.0 mmol/L 21.0-32.0 [facility] Urea nitrogen/Creatinine [Mass ratio] 27.3 mg/mg 10-20 [facility] - Hematology and Cell countsOrdered By: Paco Norman on 02-12-2023 Erythrocyte distribution width (RBC) [Entitic vol] 60.2 fL 35.1-43.9 [facility] Erythrocyte distribution width (RBC) [Ratio] 15.6 % 11.6-14.6 [facility] Immature granulocytes/100 WBC (Bld) 0.200 % 0.0-0.9 [facility] Comment on above: IG% - Immature Granu locytes (promyelocytes, myelocytes and metamyelocytes) > 1% indicates that a LEFT SHIFT is Present. MCH (RBC) [Entitic mass] 32.0 pg 27.0-32.0 [facility] Nucleated RBC/100 WBC (Bld) [Ratio] 0 % 0-5 [facility] MCHC Auto (RBC) [Mass/Vol]Or dered By: Paco Norman on 02-12-2023 MCHC (RBC) [Mass/Vol] 30.6 g/dL 32-36 [facility] No Panel InformationOrdered By: Paco Norman on 02-12-2023 Estimated GFR (MDRD) Amer 38 mL/min >60 [facility] Comment on above: GFR Calc Estimated GFR (MDRD) Non-Af Amer 31 mL/min >60 [facility] Comment on above: Non- GFR Calc 32.0 pg 27.0-32.0 [facility] 15.6 % 11.6-14.6 [facility] 60.2 fl 35.1-43.9 [facility] 0.200 % 0.0-0.9 [facility] 0 % 0-5 [facility] 31 mL/min >60 [facility] 38 mL/min >60 [facility] 27.3 RATIO 10-20 [facility] 29.0 mmol/L 21.0-32.0 [facility] Platelets bldOrdered By: Rajendra Norman on 02-12-2023 Platelets (Bld) [#/Vol] 118 10*3/uL 150-450 [facility] Serum or plasma calcium elvia urement (mass/volume)Ordered By: Paco Norman on 02-12-2023 Calcium [Mass/Vol] 8.9 mg/dL 8.5-10.1 [facility] Serum or plasma creatinine m easurement (mass/volume)Ordered By: Paco Norman on 02-12-2023 Creatinine [Mass/Vol] 2.16 mg/dL 0.70-1.30 [facility] Comment on above: The validity of the calculated GFR & GFRAA in patients over 70 years has not been determined. Clinical correlation is essential. Serum or plasma urea nitroge n measurement (mass/volume)Ordered By: Paco Norman on 02-12-2023 Urea nitrogen [Mass/Vol] 59 mg/dL 7-18 [facility] Thin prep Papanicolaou smear with manual screeningOrdered By: Riazmastersondel Norman on 02-12-2023 Thin prep Papanicolaou smear with manual screening 3 5-15 [facility] Absolute lymphocyte countOrd ered By: Paco Norman on 02-05-2023 Lymphocytes Auto (Unsp spec) [#/Vol] 0.79 10*3/uL 0.83-4.51 [facility] Basophil percentageOrdered B y: Paco Norman on 02-05-2023 Basophil percentage 102 mg/dL 74-106 [facility] Basophil percentage 141 mmol/L 136-145 [facility] Basophil percentage 4.6 mmol/L 3.5-5.1 [facility] Basophil percentage 108 mmol/L 98-107 [facility] Basophils (Bld) [#/Vol] 5.0 10*3/uL 4.4-11.0 [facility] Basophils (Bld) [#/Vol] 3.4 10*3/uL 2.0-7.7 [facility] Basophils/100 WBC (Bld) 68.4 % 47-70 [facility] Basophils/100 WBC (Bld) 5.2 % 0-5 [facility] Basophils/100 WBC (Bld) 0.4 % 0-1 [facility] Blood erythrocytes count (nu mber/volume)Ordered By: Paco Norman on 02-05-2023 RBC (Bld) [#/Vol] 2.65 10*6/uL 4.6-6.2 [facility] Blood hemoglobin measurement (mass/volume)Ordered By: Paco Norman on 02-05-2023 Hemoglobin (Bld) [Mass/Vol] 8.5 g/dL 13.0-16.5 [facility] Blood lymphocytes/100 leukoc ytesOrdered By: Paco Norman on 02-05-2023 Lymphocytes/100 WBC (Bld) 15.8 % 19-41 [facility] Blood monocytes/100 leukocyt esOrdered By: Paco Norman on 02-05-2023 Monocytes/100 WBC (Bld) 9.8 % 0-10 [facility] Blood platelet mean volumeOr dered By: Paco Norman on 02-05-2023 Platelet mean volume (Bld) [Entitic vol] 9.0 fL 6.2-12.0 [facility] Determination of erythrocyte mean corpuscular volume (MCV)Ordered By: Paco Norman on 02-05-2023 MCV (RBC) [Entitic vol] 103.0 fL 80-94 [facility] Hematocrit Auto (Bld) [Volum e fraction]Ordered By: Paco Norman on 02-05-2023 Hematocrit (Bld) [Volume fraction] 27.3 % 40-54 [facility] MCHC Auto (RBC) [Mass/Vol]Or dered By: Paco Norman on 02-05-2023 MCHC (RBC) [Mass/Vol] 31.1 g/dL 32-36 [facility] No Panel InformationOrdered By: Paco Norman on 02-05-2023 32.1 pg 27.0-32.0 [facility] 15.2 % 11.6-14.6 [facility] 57.1 fl 35.1-43.9 [facility] 0.400 % 0.0-0.9 [facility] 0 % 0-5 [facility] 29 mL/min >60 [facility] 35 mL/min >60 [facility] 28.4 RATIO 10-20 [facility] 29.0 mmol/L 21.0-32.0 [facility] Platelets bldOrdered By: Rajendra Norman on 02-05-2023 Platelets (Bld) [#/Vol] 139 10*3/uL 150-450 [facility] Serum or plasma calcium elvia urement (mass/volume)Ordered By: Paco Norman on 02-05-2023 Calcium [Mass/Vol] 9.1 mg/dL 8.5-10.1 [facility] Serum or plasma creatinine m easurement (mass/volume)Ordered By: Paco Norman on 02-05-2023 Creatinine [Mass/Vol] 2.32 mg/dL 0.70-1.30 [facility] Serum or plasma urea nitroge n measurement (mass/volume)Ordered By: Paco Norman on 02-05-2023 Urea nitrogen [Mass/Vol] 66 mg/dL 7-18 [facility] Thin prep Papanicolaou smear with manual screeningOrdered By: Paco Norman on 02-05-2023 Thin prep Papanicolaou smear with manual screening 4 5-15 [facility] Bacteria identified Cx Nom ( Wound)Ordered By: Paco Norman on 01-31-2023 Routine wound culture Klebsiella pneumon iae sp pneum [facility] Routine wound culture Corynebacterium striatum [facility] Gram stain for investigation of transfusion reactionOrdered By: Paco Norman on 01-31-2023 Microscopic observation Gram stain Nom (Unsp spec) [facility] Bacteria identified Cx Nom ( Wound)Ordered By: Paco Norman on 01-30-2023 Routine wound culture Klebsiella pneumon iae sp pneum [facility] Routine wound culture Corynebacterium striatum [facility] Gram stain for investigation of transfusion reactionOrdered By: Paco Norman on 01-30-2023 Microscopic observation Gram stain Nom (Unsp spec) [facility] Absolute lymphocyte countOrd ered By: Paco Norman on 01-29-2023 Lymphocytes Auto (Unsp spec) [#/Vol] 1.01 10*3/uL 0.83-4.51 [facility] Basophil percentageOrdered B y: Paco Norman on 01-29-2023 Basophil percentage 94 mg/dL 74-106 [facility] Basophil percentage 140 mmol/L 136-145 [facility] Basophil percentage 4.4 mmol/L 3.5-5.1 [facility] Basophil percentage 110 mmol/L 98-107 [facility] Basophils (Bld) [#/Vol] 5.1 10*3/uL 4.4-11.0 [facility] Basophils (Bld) [#/Vol] 3.3 10*3/uL 2.0-7.7 [facility] Basophils/100 WBC (Bld) 64.9 % 47-70 [facility] Basophils/100 WBC (Bld) 5.5 % 0-5 [facility] Basophils/100 WBC (Bld) 0.6 % 0-1 [facility] Blood erythrocytes count (nu mber/volume)Ordered By: Paco Norman on 01-29-2023 RBC (Bld) [#/Vol] 2.61 10*6/uL 4.6-6.2 [facility] Blood hemoglobin measurement (mass/volume)Ordered By: Paco Norman on 01-29-2023 Hemoglobin (Bld) [Mass/Vol] 8.6 g/dL 13.0-16.5 [facility] Blood lymphocytes/100 leukoc ytesOrdered By: aPco Norman on 01-29-2023 Lymphocytes/100 WBC (Bld) 19.8 % 19-41 [facility] Blood monocytes/100 leukocyt esOrdered By: Paco Norman on 01-29-2023 Monocytes/100 WBC (Bld) 8.8 % 0-10 [facility] Blood platelet mean volumeOr dered By: Paco Norman on 01-29-2023 Platelet mean volume (Bld) [Entitic vol] 9.5 fL 6.2-12.0 [facility] Determination of erythrocyte mean corpuscular volume (MCV)Ordered By: Paco Norman on 01-29-2023 MCV (RBC) [Entitic vol] 102.7 fL 80-94 [facility] Hematocrit Auto (Bld) [Volum e fraction]Ordered By: Paco Norman on 01-29-2023 Hematocrit (Bld) [Volume fraction] 26.8 % 40-54 [facility] MCHC Auto (RBC) [Mass/Vol]Or dered By: Paco Norman on 01-29-2023 MCHC (RBC) [Mass/Vol] 32.1 g/dL 32-36 [facility] No Panel InformationOrdered By: Paco Norman on 01-29-2023 33.0 pg 27.0-32.0 [facility] 14.6 % 11.6-14.6 [facility] 55.0 fl 35.1-43.9 [facility] 0.400 % 0.0-0.9 [facility] 0 % 0-5 [facility] 33 mL/min >60 [facility] 40 mL/min >60 [facility] 26.6 RATIO 10-20 [facility] 27.0 mmol/L 21.0-32.0 [facility] Platelets bldOrdered By: Rajendra Norman on 01-29-2023 Platelets (Bld) [#/Vol] 156 10*3/uL 150-450 [facility] Serum or plasma calcium elvia urement (mass/volume)Ordered By: Paco Norman on 01-29-2023 Calcium [Mass/Vol] 9.0 mg/dL 8.5-10.1 [facility] Serum or plasma creatinine m easurement (mass/volume)Ordered By: Paco Norman on 01-29-2023 Creatinine [Mass/Vol] 2.07 mg/dL 0.70-1.30 [facility] Serum or plasma urea nitroge n measurement (mass/volume)Ordered By: Paco Norman on 01-29-2023 Urea nitrogen [Mass/Vol] 55 mg/dL 7-18 [facility] Thin prep Papanicolaou smear with manual screeningOrdered By: Paco Norman on 01-29-2023 Thin prep Papanicolaou smear with manual screening 3 5-15 [facility] CNPNon 01-23-2023 CNPN Telephone ([id number]) AMAURY BLANK ([id number]) 1940 M Date Time Provider Department 01/23/23 ERROL ROD During your visit today, we recorded the following information about you: Jean Paul Mares 01/23/2023 5:12 PM Signed [facility] called in with 2 questions for Amaury's care. When can they remove the surgical dressing Can they have orders for his care Dallas Calderón was to go out today to get current x-rays. Waiting for the results. Sending for review Thank you Jean Paul Momin 01/24/2023 10:38 AM Signed Spoke to Isabel to give Dr. Rod's instructions. She understood and asked if Mr. Blank needs to come in for an in office visit with Dr. Rod. Sending for recommendation. I will call Isabel with further information Thank you Jean Paul George Would you like to see Amaury in office? Jean Paul Mares 01/27/2023 9:14 AM Signed Called Isabel to let her know that no office visit is necessary as long as the wound is healed and x-rays look good per Dr. Rod's message. Isabel stated the nurse practitioner removed the bandage and everything looks great. Thank you Jean Paul George Allergies As of Date: 01/23/2023 Noted Allergy Reaction AMLODIPINE 12/13/2014 2 - Rash LOVASTATIN 12/13/2014 4 - Hives Date Reviewed: 01/22/2023 Reviewed by: Jinny Francis MA - Fully Assessed Reason for Visit: Patient Question [0377] Appointment [[id number]] Prescriptions as of 01/27/2023 - acetaminophen (TYLENOL EXTRA STRENGTH) 500 mg tablet Take 1,000 mg by mouth every 8 hours as needed for pain. - aspirin, enteric coated (ASPIRIN, ENTERIC COATED) 81 mg EC tablet Take 81 mg by mouth once daily. - carvedilol (COREG) 3.125 mg tablet Take 1 tablet by mouth twice daily. - nystatin (MYCOSTATIN) cream - oxyCODONE IR (ROXICODONE) 5 mg immediate release tablet Take 5 mg by mouth every 6 hours as needed for pain. - senna-docusate (SENNA PLUS) 8.6-50 mg per tablet Take 1 tablet by mouth once daily. - traMADol (ULTRAM) 50 mg tablet Take 1 tablet by mouth every 6 hours as needed. - lisinopril (ZESTRIL) 10 mg tablet Take 10 mg by mouth once daily. - acetaminophen (TYLENOL) 325 mg tablet Take 3 tablets by mouth every 6 hours. - amiodarone (PACERONE) 200 mg tablet Take 1 tablet by mouth once daily. - ergocalciferol 50,000 unit capsule (VITAMIN D2, DRISDOL) Take 1 capsule by mouth one time a week for 6 doses. - levothyroxine (SYNTHROID) 75 mcg tablet Take 1 tablet by mouth DAILY (6 AM). - AZATHIOPRINE (AZASAN ORAL) Take 50 mg by mouth once daily. - balsalazide (COLAZAL) 750 mg capsule Take 2,250 mg by mouth three times daily. - atorvastatin (LIPITOR) 40 mg tablet Take 40 mg by mouth once daily. - ezetimibe (ZETIA) 10 mg tablet Take 10 mg by mouth once daily. - carvedilol (COREG) 12.5 mg tablet Take 12.5 mg by mouth twice daily with meals. - lisinopril (ZESTRIL) 20 mg tablet Take 20 mg by mouth twice daily. - ferrous sulfate 325 mg (65 mg iron) tablet Take 325 mg by mouth daily with breakfast. - Zinc Gluconate 50 mg tablet Take 50 mg by mouth once daily. Problem List As Of Date 01/23/2023 Noted Resolved Head injury, acute, without loss of consciousne*01/03/2023 01/09/2023 Stasis ulcer (HCC) [I83.009, L97.264] 01/03/2023 01/09/2023 Skin tear of left elbow without complication [S*01/03/2023 Noninfected skin tear of left leg [S81.812A] 01/03/2023 Alteration in skin integrity due to moisture [R*01/03/2023 Coronary artery disease involving [place] churchill*01/04/2023 S/P CABG (coronary artery bypass graft) [Z95.1] 01/04/2023 Atrial fibrillation (HCC) [I48.91] 01/04/2023 Primary hypertension [I10] 01/04/2023 Other hyperlipidemia [E78.49] 01/04/2023 COPD (chronic obstructive pulmonary disease) (H*01/04/2023 Fall [W19.XXXA] 01/04/2023 01/09/2023 Malnutrition of moderate degree (HCC) [E44.0] 01/05/2023 ABLA (acute blood loss anemia) [D62] 01/06/2023 Closed displaced comminuted fracture of shaft o*01/06/2023 01/09/2023 Open wound of left foot [S91.302A] 01/07/2023 01/09/2023 Arterial insufficiency with ischemic ulcer (HCC*01/07/2023 Encounter Status:Closed by CRISTOBAL SANCHEZARY JEAN PAUL GEORGE on 01/27/23 [facility] Absolute lymphocyte countOrd ered By: Paco Norman on 01-22-2023 Lymphocytes Auto (Unsp spec) [#/Vol] 0.96 10*3/uL 0.83-4.51 [facility] Basophil percentageOrdered B y: Paco Norman on 01-22-2023 Basophil percentage 91 mg/dL 74-106 [facility] Basophil percentage 143 mmol/L 136-145 [facility] Basophil percentage 4.5 mmol/L 3.5-5.1 [facility] Basophil percentage 112 mmol/L 98-107 [facility] Basophils (Bld) [#/Vol] 4.8 10*3/uL 4.4-11.0 [facility] Basophils (Bld) [#/Vol] 3.2 10*3/uL 2.0-7.7 [facility] Basophils/100 WBC (Bld) 66.4 % 47-70 [facility] Basophils/100 WBC (Bld) 4.0 % 0-5 [facility] Basophils/100 WBC (Bld) 0.6 % 0-1 [facility] Blood erythrocytes count (nu mber/volume)Ordered By: Paco Norman on 01-22-2023 RBC (Bld) [#/Vol] 2.62 10*6/uL 4.6-6.2 [facility] Blood hemoglobin measurement (mass/volume)Ordered By: Paco Norman on 01-22-2023 Hemoglobin (Bld) [Mass/Vol] 8.4 g/dL 13.0-16.5 [facility] Blood lymphocytes/100 leukoc ytesOrdered By: Paco Norman on 01-22-2023 Lymphocytes/100 WBC (Bld) 20.0 % 19-41 [facility] Blood monocytes/100 leukocyt esOrdered By: Paco Norman on 01-22-2023 Monocytes/100 WBC (Bld) 8.6 % 0-10 [facility] Blood platelet mean volumeOr dered By: Paco Norman on 01-22-2023 Platelet mean volume (Bld) [Entitic vol] 9.4 fL 6.2-12.0 [facility] CNOVon 01-22-2023 CNOV Office Visit (NEAGCL M) AMAURY BLANK ([id number]) 1940 M Date Time Provider Department 01/22/23 11:30 AM AZUCENA VO During your visit today, we recorded the following information about you: Pulse Blood pressure Weight Height 66/minute 87/51 75 kg 1.778 m Azucena Vo APRN.CNP 01/22/2023 12:19 PM Signed NEUROSURGERY FOLLOW UP OFFICE NOTE Azucena Vo APRN.CNP Date of visit: January 22, 2023 Patient Name: Mr.Vincent Calvin Blank Date of : 1940 Current Age: [age] year old Sex: male MRN/E# [id number] Last Office Visit: Hospital follow-up Chief Complaint: Patient presents with: Hospital Follow Up The patient presents for a hospital follow up with imaging (CT B) for evaluation. This is an 82-year-old male with a PMHx of CAD, GI bleed, HTN, HLD, hypothyroidism, PAD and UC who was seen for consult on 01/03/[address] Westfall after a ground-level fall at home. Patient stated that he was getting up to use the bathroom with assistance of his walker. Unfortunately he tripped causing him to fall backwards and strike the back of his head. He also reported a previous fall about 1 month earlier. He denied any difficult neurological complaints but stated that he was having left hip pain. He denied any use of blood thinning medications. Work-up was completed and demonstrated a small IPH as well as a left intertrochanteric fracture. No surgical intervention was indicated for the parenchymal bleed and he was cleared for surgical intervention with orthopedic surgery for his hip fracture. Upon further imaging review there was note of surrounding edema at the left frontal ICH and MRI of the brain without and with contrast enhancement was recommended to rule out metastatic disease. Once completed there was no evidence of underlying mass or lesion. No neurosurgical intervention was indicated and recommendation was to follow-up in [address] brain prompting his visit today. Since discharge he states he is overall doing well denies any complaints or concerns such as headache, dizziness, speech deficits, seizure activity, motor or sensory changes. He is currently in a rehabilitation facility working with PT/OT after his left hip surgery for fracture. He presents for image review, evaluation and plan of care. Smoker: Former Diabetic: No Anticoagulants / Antiplatelets: None Occupation: N/A Symptoms: None PREVIOUS CONSERVATIVE TREATMENTS: Rehabilitation -PT/OT PREVIOUS SURGERY: None PAIN EVALUATION No data found in the last 1 encounters. PAST MEDICAL HISTORY Diagnosis Date CAD (coronary artery disease) History of GI bleed HTN (hypertension) Hyperlipidaemia Hypothyroidism PAD (peripheral artery disease) (HCC) UC (ulcerative colitis) (HCC) PAST SURGICAL HISTORY Procedure Laterality Date PAST SURGICAL HISTORY OF Right 1966 right hand PAST SURGICAL HISTORY OF Right 2004 right flank chronic inflammed tissue PAST SURGICAL HISTORY OF multiple skin bx--benign FAMILY HISTORY Problem Relation Age of Onset Colon Cancer Paternal Grandfather Breast Cancer Mother ALLERGIES Allergen Reactions Amlodipine Rash Lovastatin Hives Current Outpatient Medications Medication Sig Dispense Refill acetaminophen (TYLENOL EXTRA STRENGTH) 500 mg tablet Take 1,000 mg by mouth every 8 hours as needed for pain. aspirin, enteric coated (ASPIRIN, ENTERIC COATED) 81 mg EC tablet Take 81 mg by mouth once daily. carvedilol (COREG) 3.125 mg tablet Take 1 tablet by mouth twice daily. nystatin (MYCOSTATIN) cream oxyCODONE IR (ROXICODONE) 5 mg immediate release tablet Take 5 mg by mouth every 6 hours as needed for pain. senna-docusate (SENNA PLUS) 8.6-50 mg per tablet Take 1 tablet by mouth once daily. traMADol (ULTRAM) 50 mg tablet Take 1 tablet by mouth every 6 hours as needed. lisinopril (ZESTRIL) 10 mg tablet Take 10 mg by mouth once daily. amiodarone (PACERONE) 200 mg tablet Take 1 tablet by mouth once daily. ergocalciferol 50,000 unit capsule (VITAMIN D2, DRISDOL) Take 1 capsule by mouth one time a week for 6 doses. 6 capsule 0 levothyroxine (SYNTHROID) 75 mcg tablet Take 1 tablet by mouth DAILY (6 AM). AZATHIOPRINE (AZASAN ORAL) Take 50 mg by mouth once daily. balsalazide (COLAZAL) 750 mg capsule Take 2,250 mg by mouth three times daily. atorvastatin (LIPITOR) 40 mg tablet Take 40 mg by mouth once daily. ezetimibe (ZETIA) 10 mg tablet Take 10 mg by mouth once daily. ferrous sulfate 325 mg (65 mg iron) tablet Take 325 mg by mouth daily with breakfast. Zinc Gluconate 50 mg tablet Take 50 mg by mouth once daily. acetaminophen (TYLENOL) 325 mg tablet Take 3 tablets by mouth every 6 hours. 360 tablet 0 carvedilol (COREG) 12.5 mg tablet Take 12.5 mg by mouth twice daily with meals. lisinopril (ZESTRIL) 20 mg tablet Take 20 mg by mouth twice daily. No (more content not included)... Normal [facility] Determination of erythrocyte mean corpuscular volume (MCV)Ordered By: Paco Norman on 01-22-2023 MCV (RBC) [Entitic vol] 103.4 fL 80-94 [facility] Hematocrit Auto (Bld) [Volum e fraction]Ordered By: Paco Norman on 01-22-2023 Hematocrit (Bld) [Volume fraction] 27.1 % 40-54 [facility] MCHC Auto (RBC) [Mass/Vol]Or dered By: Paco Norman on 01-22-2023 MCHC (RBC) [Mass/Vol] 31.0 g/dL 32-36 [facility] No Panel InformationOrdered By: Paco Norman on 01-22-2023 32.1 pg 27.0-32.0 [facility] 14.6 % 11.6-14.6 [facility] 55.3 fl 35.1-43.9 [facility] 0.400 % 0.0-0.9 [facility] 0 % 0-5 [facility] 31 mL/min >60 [facility] 37 mL/min >60 [facility] 28.1 RATIO 10-20 [facility] 28.0 mmol/L 21.0-32.0 [facility] Platelets bldOrdered By: Rajendra Norman on 01-22-2023 Platelets (Bld) [#/Vol] 174 10*3/uL 150-450 [facility] Serum or plasma calcium elvia urement (mass/volume)Ordered By: Paco Norman on 01-22-2023 Calcium [Mass/Vol] 8.8 mg/dL 8.5-10.1 [facility] Serum or plasma creatinine m easurement (mass/volume)Ordered By: aPco Noramn on 01-22-2023 Creatinine [Mass/Vol] 2.21 mg/dL 0.70-1.30 [facility] Serum or plasma urea nitroge n measurement (mass/volume)Ordered By: Paco Norman on 01-22-2023 Urea nitrogen [Mass/Vol] 62 mg/dL 7-18 [facility] Thin prep Papanicolaou smear with manual screeningOrdered By: Paco Norman on 01-22-2023 Thin prep Papanicolaou smear with manual screening 3 5-[address] [facility] [address] BRAIN WO IVCONon 01-21-[address] BRAIN WO IVCON * * *Final Report* * * DATE OF EXAM: Jan 20 2023 11:54AM [facility] 0504 - CT BRAIN WO IVCON / PROCEDURE REASON: Intraparenchymal hematoma of right side of brain due to trauma, with unknown los * * * * Physician Interpretation * * * * EXAMINATION: CT BRAIN WO OPAL CLINICAL HISTORY: Left frontal pole parenchymal hematoma follow-up. TECHNIQUE: Serial axial images without IV contrast were obtained from the vertex to the foramen magnum. MQ: [id number] CT Radiation dose: Integrated Dose-Length Product (DLP) for this visit = 719 mGy*cm CT Dose Reduction Employed: Automated exposure control(AEC) and iterative recon COMPARISON: MRI brain from 01/05/2023. RESULT: Machine Assistant (topogram) images: Unremarkable. Post-operative change: None. Acute change: No evidence of an acute infarct or other acute parenchymal process. Hemorrhage: No evidence of acute intracranial hemorrhage. ECASS hemorrhagic transformation score: Not Applicable Mass Lesion / Mass Effect: There is no evidence of an intracranial mass or extraaxial fluid collection. No significant mass effect. Chronic change: There is now encephalomalacia in the left frontal pole in the former location of the parenchymal hematoma. Parenchyma: There is moderate generalized volume loss. The brain parenchyma is otherwise within normal limits for age. Ventricles: Ventricular enlargement concordant with the degree of parenchymal volume loss. Paranasal sinuses and skull base: The visualized paranasal sinuses are grossly clear. The skull base and imaged soft tissues are unremarkable. IMPRESSION: No acute intracranial abnormality. Specifically no evidence of interval intracranial hemorrhage. Interval evolution of the previous acute infarct in left frontal pole to encephalomalacia. [employer] Official: [facility] Transcribe Date/Time: Jan 20 2023 12:52P Dictated by : DEE MANDUJANO MD This examination was interpreted and the report reviewed and electronically signed by: DEE MANDUJANO MD on Jan 20 2023 12:54PM EST [id number] Normal [facility] Absolute lymphocyte countOrd ered By: Paco Norman on 01-15-2023 Lymphocytes Auto (Unsp spec) [#/Vol] 0.92 10*3/uL 0.83-4.51 [facility] Basophil percentageOrdered B y: Jelenapillonicholasdel Norman on 01-15-2023 Basophil percentage 95 mg/dL 74-106 [facility] Basophil percentage 141 mmol/L 136-145 [facility] Basophil percentage 4.9 mmol/L 3.5-5.1 [facility] Basophil percentage 109 mmol/L 98-107 [facility] Basophils (Bld) [#/Vol] 6.3 10*3/uL 4.4-11.0 [facility] Basophils (Bld) [#/Vol] 4.5 10*3/uL 2.0-7.7 [facility] Basophils/100 WBC (Bld) 71.9 % 47-70 [facility] Basophils/100 WBC (Bld) 1.7 % 0-5 [facility] Basophils/100 WBC (Bld) 0.5 % 0-1 [facility] Blood erythrocytes count (nu mber/volume)Ordered By: Paco Norman on 01-15-2023 RBC (Bld) [#/Vol] 2.51 10*6/uL 4.6-6.2 [facility] Blood hemoglobin measurement (mass/volume)Ordered By: Paco Norman on 01-15-2023 Hemoglobin (Bld) [Mass/Vol] 8.0 g/dL 13.0-16.5 [facility] Blood lymphocytes/100 leukoc ytesOrdered By: Paco Norman on 01-15-2023 Lymphocytes/100 WBC (Bld) 14.6 % 19-41 [facility] Blood monocytes/100 leukocyt esOrdered By: Paco Norman on 01-15-2023 Monocytes/100 WBC (Bld) 10.5 % 0-10 [facility] Blood platelet mean volumeOr dered By: Paco Norman on 01-15-2023 Platelet mean volume (Bld) [Entitic vol] 9.4 fL 6.2-12.0 [facility] Determination of erythrocyte mean corpuscular volume (MCV)Ordered By: Paco Norman on 01-15-2023 MCV (RBC) [Entitic vol] 104.4 fL 80-94 [facility] Hematocrit Auto (Bld) [Volum e fraction]Ordered By: Paco Norman on 01-15-2023 Hematocrit (Bld) [Volume fraction] 26.2 % 40-54 [facility] MCHC Auto (RBC) [Mass/Vol]Or dered By: Paco Norman on 01-15-2023 MCHC (RBC) [Mass/Vol] 30.5 g/dL 32-36 [facility] No Panel InformationOrdered By: Paco Norman on 01-15-2023 31.9 pg 27.0-32.0 [facility] 14.4 % 11.6-14.6 [facility] 54.6 fl 35.1-43.9 [facility] 0.800 % 0.0-0.9 [facility] 0 % 0-5 [facility] 29 mL/min >60 [facility] 35 mL/min >60 [facility] 27.9 RATIO 10-20 [facility] 26.0 mmol/L 21.0-32.0 [facility] Platelets bldOrdered By: Rajendra Norman on 01-15-2023 Platelets (Bld) [#/Vol] 196 10*3/uL 150-450 [facility] Serum or plasma calcium elvia urement (mass/volume)Ordered By: Paco Norman on 01-15-2023 Calcium [Mass/Vol] 8.7 mg/dL 8.5-10.1 [facility] Serum or plasma creatinine m easurement (mass/volume)Ordered By: Paco Norman on 01-15-2023 Creatinine [Mass/Vol] 2.33 mg/dL 0.70-1.30 [facility] Serum or plasma urea nitroge n measurement (mass/volume)Ordered By: Paco Norman on 01-15-2023 Urea nitrogen [Mass/Vol] 65 mg/dL 7-18 [facility] Thin prep Papanicolaou smear with manual screeningOrdered By: Paco Norman on 01-15-2023 Thin prep Papanicolaou smear with manual screening 6 5-15 [facility] Absolute lymphocyte countOrd ered By: Paco Norman on 01-13-2023 Lymphocytes Auto (Unsp spec) [#/Vol] 1.17 10*3/uL 0.83-4.51 [facility] Basophil percentageOrdered B y: Paco Norman on 01-13-2023 Basophils (Bld) [#/Vol] 6.4 10*3/uL 4.4-11.0 [facility] Basophils (Bld) [#/Vol] 4.3 10*3/uL 2.0-7.7 [facility] Basophils/100 WBC (Bld) 67.6 % 47-70 [facility] Basophils/100 WBC (Bld) 1.9 % 0-5 [facility] Basophils/100 WBC (Bld) 0.3 % 0-1 [facility] Blood erythrocytes count (nu mber/volume)Ordered By: Paco Tacodyanasreedhar on 01-13-2023 RBC (Bld) [#/Vol] 2.54 10*6/uL 4.6-6.2 [facility] Blood hemoglobin measurement (mass/volume)Ordered By: Paco Dillsreedhar on 01-13-2023 Hemoglobin (Bld) [Mass/Vol] 8.3 g/dL 13.0-16.5 [facility] Blood lymphocytes/100 leukoc ytesOrdered By: pillomastersondel Norman on 01-13-2023 Lymphocytes/100 WBC (Bld) 18.4 % 19-41 [facility] Blood monocytes/100 leukocyt esOrdered By: Paco Norman on 01-13-2023 Monocytes/100 WBC (Bld) 11.5 % 0-10 [facility] Blood platelet mean volumeOr dered By: Paco Norman on 01-13-2023 Platelet mean volume (Bld) [Entitic vol] 9.4 fL 6.2-12.0 [facility] CNPNon 01-13-2023 CNPN Telephone (AGPOB1) AMAURY BLANK ([id number]) 1940 Date Time Provider Department [facility]13/[facility] During your visit today, we recorded the following information about you: Jean Paul Mares 01/13/2023 4:43 PM Signed Received: 3 days ago Brooke Edwards Charlotte J Previous Messages ----- Message ----- From: Irina Andres Sent: 01/10/2023 12:31 PM EDT To: [facility] Triage Pool Subject: Orthopedics / Open Leg: Pain / Post Op Withi* Subject Line Format: Orthopedics / [Provider Name or Open AND Body Part] / [Issue] Patient has been identified by name and Date of (Y/N): y Patient: Amaury Blank Date of : 1940 Previous Provider Seen: mag Body Part(s) Identified: leg Diagnosis/Reason For Visit: post op Reason for the call/escalation: pt is staying at [facility].estefania called to schedule pt a post op appt tool will not allow scheduling If reason for call/escalation is discharge from ED/ER or Hospital, which facility was the patient seen at: na Was an appointment scheduled (Y/N): n Person calling if other than patient: na Return call to if other than patient: na Best contact number: [phone] Thank you, Irina Andres January 10, 2023 12:03 PM Jean Paul Mares 01/22/2023 4:29 PM Signed Called [facility] Allergies As of Date: 01/13/2023 Noted Allergy Reaction AMLODIPINE 12/13/2014 2 - Rash LOVASTATIN 12/13/2014 4 - Hives Date Reviewed: 01/04/2023 Reviewed by: Moni Childers, PROMISE - Fully Assessed Reason for Visit: Contact Center Call [[id number]] Prescriptions as of 01/22/2023 - acetaminophen (TYLENOL EXTRA STRENGTH) 500 mg tablet Take 1,000 mg by mouth every 8 hours as needed for pain. - aspirin, enteric coated (ASPIRIN, ENTERIC COATED) 81 mg EC tablet Take 81 mg by mouth once daily. - carvedilol (COREG) 3.125 mg tablet Take 1 tablet by mouth twice daily. - nystatin (MYCOSTATIN) cream - oxyCODONE IR (ROXICODONE) 5 mg immediate release tablet Take 5 mg by mouth every 6 hours as needed for pain. - senna-docusate (SENNA PLUS) 8.6-50 mg per tablet Take 1 tablet by mouth once daily. - traMADol (ULTRAM) 50 mg tablet Take 1 tablet by mouth every 6 hours as needed. - lisinopril (ZESTRIL) 10 mg tablet Take 10 mg by mouth once daily. - acetaminophen (TYLENOL) 325 mg tablet Take 3 tablets by mouth every 6 hours. - amiodarone (PACERONE) 200 mg tablet Take 1 tablet by mouth once daily. - ergocalciferol 50,000 unit capsule (VITAMIN D2, DRISDOL) Take 1 capsule by mouth one time a week for 6 doses. - levothyroxine (SYNTHROID) 75 mcg tablet Take 1 tablet by mouth DAILY (6 AM). - AZATHIOPRINE (AZASAN ORAL) Take 50 mg by mouth once daily. - balsalazide (COLAZAL) 750 mg capsule Take 2,250 mg by mouth three times daily. - atorvastatin (LIPITOR) 40 mg tablet Take 40 mg by mouth once daily. - ezetimibe (ZETIA) 10 mg tablet Take 10 mg by mouth once daily. - carvedilol (COREG) 12.5 mg tablet Take 12.5 mg by mouth twice daily with meals. - lisinopril (ZESTRIL) 20 mg tablet Take 20 mg by mouth twice daily. - ferrous sulfate 325 mg (65 mg iron) tablet Take 325 mg by mouth daily with breakfast. - Zinc Gluconate 50 mg tablet Take 50 mg by mouth once daily. Problem List As Of Date 01/13/2023 Noted Resolved Head injury, acute, without loss of consciousne*01/03/2023 01/09/2023 Stasis ulcer (HCC) [I83.009, L97.909] 01/03/2023 01/09/2023 Skin tear of left elbow without complication [S*01/03/2023 Noninfected skin tear of left leg [S81.812A] 01/03/2023 Alteration in skin integrity due to moisture [R*01/03/2023 Coronary artery disease involving [place] churchill*01/04/2023 S/P CABG (coronary artery bypass graft) [Z95.1] 01/04/2023 Atrial fibrillation (HCC) [I48.91] 01/04/2023 Primary hypertension [I10] 01/04/2023 Other hyperlipidemia [E78.49] 01/04/2023 COPD (chronic obstructive pulmonary disease) (H*01/04/2023 Fall [W19.XXXA] 01/04/2023 01/09/2023 Malnutrition of moderate degree (HCC) [E44.0] 01/05/2023 ABLA (acute blood loss anemia) [D62] 01/06/2023 Closed displaced comminuted fracture of shaft o*01/06/2023 01/09/2023 Open wound of left foot [S91.302A] 01/07/2023 01/09/2023 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 MCHC Auto (RBC) [Mass/Vol]Or dered By: Paco Norman on 01-13-2023 MCHC (RBC) [Mass/Vol] 31.4 g/dL 32-36 [facility] No Panel InformationOrdered By: Paco Norman on 01-13-2023 32.7 pg 27.0-32.0 [facility] 14.5 % 11.6-14.6 [facility] 54.8 fl 35.1-43.9 [facility] 0.300 % 0.0-0.9 [facility] 0 % 0-5 [facility] Platelets bldOrdered By: Rajendra Norman on 01-13-2023 Platelets (Bld) [#/Vol] 200 10*3/uL 150-450 [facility] Absolute lymphocyte countOrd ered By: Riaznicholasdel Españadyanasreedhar on 01-10-2023 Lymphocytes Auto (Unsp spec) [#/Vol] 0.93 10*3/uL 0.83-4.51 [facility] Basophil percentageOrdered B y: Paco Norman on 01-10-2023 Basophil percentage 96 mg/dL 74-106 [facility] Basophil percentage 4.9 g/dL 6.4-8.2 [facility] Basophil percentage 0.40 mg/dL 0.20-1.00 [facility] Basophil percentage 140 mmol/L 136-145 [facility] Basophil percentage 4.5 mmol/L 3.5-5.1 [facility] Basophil percentage 112 mmol/L 98-107 [facility] Basophils (Bld) [#/Vol] 4.9 10*3/uL 4.4-11.0 [facility] Basophils (Bld) [#/Vol] 3.2 10*3/uL 2.0-7.7 [facility] Basophils/100 WBC (Bld) 65.5 % 47-70 [facility] Basophils/100 WBC (Bld) 2.6 % 0-5 [facility] Basophils/100 WBC (Bld) 0.2 % 0-1 [facility] Blood erythrocytes count (nu mber/volume)Ordered By: Paco Norman on 01-10-2023 RBC (Bld) [#/Vol] 2.47 10*6/uL 4.6-6.2 [facility] Blood hemoglobin measurement (mass/volume)Ordered By: Paco Norman on 01-10-2023 Hemoglobin (Bld) [Mass/Vol] 8.0 g/dL 13.0-16.5 [facility] Blood lymphocytes/100 leukoc ytesOrdered By: Paco Norman on 01-10-2023 Lymphocytes/100 WBC (Bld) 18.9 % 19-41 [facility] Blood monocytes/100 leukocyt esOrdered By: Paco Norman on 01-10-2023 Monocytes/100 WBC (Bld) 12.2 % 0-10 [facility] Blood platelet mean volumeOr dered By: Paco Nroman on 01-10-2023 Platelet mean volume (Bld) [Entitic vol] 9.1 fL 6.2-12.0 [facility] Determination of erythrocyte mean corpuscular volume (MCV)Ordered By: Paco Norman on 01-10-2023 MCV (RBC) [Entitic vol] 102.8 fL 80-94 [facility] Hematocrit Auto (Bld) [Volum e fraction]Ordered By: Paco Norman on 01-10-2023 Hematocrit (Bld) [Volume fraction] 25.4 % 40-54 [facility] MCHC Auto (RBC) [Mass/Vol]Or dered By: Paco Norman on 01-10-2023 MCHC (RBC) [Mass/Vol] 31.5 g/dL 32-36 [facility] No Panel InformationOrdered By: Paco Norman on 01-10-2023 32.4 pg 27.0-32.0 [facility] 14.8 % 11.6-14.6 [facility] 56.1 fl 35.1-43.9 [facility] 0.600 % 0.0-0.9 [facility] 0 % 0-5 [facility] 30 mL/min >60 [facility] 37 mL/min >60 [facility] 24.2 RATIO 10-20 [facility] 3.0 g/dL 2.2-4.2 [facility] 141 U/L 45-117 [facility] 20 U/L 16-61 [facility] 22.0 mmol/L 21.0-32.0 [facility] Platelets bldOrdered By: Rajendra Norman on 01-10-2023 Platelets (Bld) [#/Vol] 159 10*3/uL 150-450 [facility] Serum or plasma albumin elvia urement (mass/volume)Ordered By: Paco Norman on 01-10-2023 Albumin [Mass/Vol] 1.9 g/dL 3.2-5.0 [facility] Serum or plasma albumin/glob ulin mass ratioOrdered By: Paco Norman on 01-10-2023 Albumin/Globulin [Mass ratio] 0.6 {ratio} 0.9-2.4 [facility] Serum or plasma calcium elvia urement (mass/volume)Ordered By: Paco Norman on 01-10-2023 Calcium [Mass/Vol] 8.4 mg/dL 8.5-10.1 [facility] Serum or plasma creatinine m easurement (mass/volume)Ordered By: Paco Norman on 01-10-2023 Creatinine [Mass/Vol] 2.23 mg/dL 0.70-1.30 [facility] Serum or plasma urea nitroge n measurement (mass/volume)Ordered By: Paco Norman on 01-10-2023 Urea nitrogen [Mass/Vol] 54 mg/dL 7-18 [facility] Thin prep Papanicolaou smear with manual screeningOrdered By: Paco Norman on 01-10-2023 Thin prep Papanicolaou smear with manual screening 31 U/L 15-37 [facility] Thin prep Papanicolaou smear with manual screening 6 5-15 [facility] Basic metabolic 2000 panelon 01-09-2023 Anion gap [Moles/Vol] 9 mmol/L Normal 9-18 [facility] Comment on above: Order Comment: Speci men Type: BLOOD SPECIMEN Ordering Facility: [facility] Address: [address] [address] Performed By: #### 5 8410-2 #### [facility] CLIA [id number] 1 [place] [address] [place] Calcium [Mass/Vol] 8.2 mg/dL Low 8.5-10.2 [facility] Comment on above: Order Comment: Speci men Type: BLOOD SPECIMEN Ordering Facility: [facility] Address: [address] [address] Performed By: #### 5 8410-2 #### [facility] CLIA [id number] 1 [place] [address] [place] Chloride [Moles/Vol] 108 mmol/L High 97-105 [facility] Comment on above: Order Comment: Speci men Type: BLOOD SPECIMEN Ordering Facility: [facility] Address: [address] [address] Performed By: #### 5 8410-2 #### [facility] CLIA [id number] [address] [place] CO2 [Moles/Vol] 21 mmol/L Low 22-30 [facility] Comment on above: Order Comment: Speci men Type: BLOOD SPECIMEN Ordering Facility: [facility] Address: [address] [address] Performed By: #### 5 8410-2 #### [facility] CLIA [id number] [address] [place] Creatinine [Mass/Vol] 2.14 mg/dL High 0.73-1.22 [facility] Comment on above: Order Comment: Speci men Type: BLOOD SPECIMEN Ordering Facility: [facility] Address: [address] [place] [address] Performed By: #### 5 8410-2 #### [facility] CLIA [id number] [address] [place] ESTIMATED GLOMERULAR FILTRATION RATE 30 mL/min/1.73m??? Low >=60 [facility] Comment on above: Order Comment: Speci men Type: BLOOD SPECIMEN Ordering Facility: [facility] Address: [address] [place] [address] Result Comment: Lindsay mated Glomerular Filtration Rate (eGFR) is calculated using the 2020 CKD-EPI creatinine equation. This equation utilizes serum creatinine, sex, and age as parameters. The creatinine assay has traceable calibration to isotope dilution-mass spectrometry. Refer to KDIGO guidelines for clinical interpretation. In patients with unstable renal function, e.g. those with acute kidney injury, the eGFR may not accurately reflect actual GFR. Performed By: #### 5 8410-2 #### [facility] CLIA [id number] [address] [place] Glucose [Mass/Vol] 107 mg/dL High 74-99 [facility] Comment on above: Order Comment: Speci men Type: BLOOD SPECIMEN Ordering Facility: [facility] Address: [address] [place] [address] Result Comment: The [place] Diabetes Association (ADA) provides guidance for cutoff values for fasting glucose and random glucose. The ADA defines fasting as no caloric intake for at least 8 hours. Fasting plasma glucose results between 100 to 125 mg/dL indicate increased risk for diabetes (prediabetes). Fasting plasma glucose results greater than or equal to 126 mg/dL meet the criteria for diagnosis of diabetes. In the absence of unequivocal hyperglycemia, results should be confirmed by repeat testing. In a patient with classic symptoms of hyperglycemia or hyperglycemic crisis, random plasma glucose results greater than or equal to 200 mg/dL meet the criteria for diagnosis of diabetes. Reference: Standards of Medical Care in Diabetes 2016, [place] [employer] Association. Diabetes Care. 2016.39(Suppl 1). Performed By: #### 5 8410-2 #### [facility] CLIA [id number] 1 [place] [address] [place] Potassium [Moles/Vol] 4.5 mmol/L Normal 3.7-5.1 [facility] Comment on above: Order Comment: Migel akil Type: BLOOD SPECIMEN Ordering Facility: [facility] Address: [address] [place] [address] Performed By: #### 5 8410-2 #### [facility] CLIA [id number] 1 [place] [address] [place] Sodium [Moles/Vol] 138 mmol/L Normal 136-144 [facility] Comment on above: Order Comment: Migel barnard Type: BLOOD SPECIMEN Ordering Facility: [facility] Address: [address] [address] Performed By: #### 5 8410-2 #### [facility] CLIA [id number] 1 [place] [address] [place] Urea nitrogen [Mass/Vol] 44 mg/dL High 9-24 [facility] Comment on above: Order Comment: Migel barnard Type: BLOOD SPECIMEN Ordering Facility: [facility] Address: [address] [address] Performed By: #### 5 8410-2 #### [facility] CLIA [id number] [address] CBC panel Auto (Bld)on 01-09 Erythrocyte distribution width (RBC) [Ratio] 14.9 % Normal 11.5-15.0 [facility] Comment on above: Order Comment: Speci men Type: BLOOD SPECIMEN Ordering Facility: [facility] Address: [address] [place] [address] Performed By: #### 5 8410-2 #### [facility] CLIA [id number] [address] Hematocrit (Bld) [Volume fraction] 24.6 % Low 39.0-51.0 [facility] Comment on above: Order Comment: Speci men Type: BLOOD SPECIMEN Ordering Facility: [facility] Address: [address] [place] [address] Performed By: #### 5 8410-2 #### [facility] CLIA [id number] [address] Hemoglobin (Bld) [Mass/Vol] 7.8 g/dL Low 13.0-17.0 [facility] Comment on above: Order Comment: Speci men Type: BLOOD SPECIMEN Ordering Facility: [facility] Address: [address] [place] [address] Performed By: #### 5 8410-2 #### [facility] CLIA [id number] [address] MCH (RBC) [Entitic mass] 31.6 pg Normal 26.0-34.0 [facility] Comment on above: Order Comment: Speci men Type: BLOOD SPECIMEN Ordering Facility: [facility] Address: [address] [place] [address] Performed By: #### 5 8410-2 #### [facility] CLIA [id number] [address] OF [facility] MCHC (RBC) [Mass/Vol] 31.7 g/dL Normal 30.5-36.0 [facility] Comment on above: Order Comment: Speci men Type: BLOOD SPECIMEN Ordering Facility: [facility] Address: [address] [address] Performed By: #### 5 8410-2 #### [facility] CLIA [id number] [address] MCV (RBC) [Entitic vol] 99.6 fL Normal 80.0-100.0 [facility] Comment on above: Order Comment: Speci men Type: BLOOD SPECIMEN Ordering Facility: [facility] Address: [address] [address] Performed By: #### 5 8410-2 #### [facility] CLIA [id number] [address] Nucleated RBC (Bld) [#/Vol] 10*3/uL Normal <0.01 [facility] Comment on above: Order Comment: Speci men Type: BLOOD SPECIMEN Ordering Facility: [facility] Address: [address] [address] Performed By: #### 5 8410-2 #### [facility] CLIA [id number] [address] Platelet mean volume (Bld) [Entitic vol] 9.7 fL Normal 9.0-12.7 [facility] Comment on above: Order Comment: Speci men Type: BLOOD SPECIMEN Ordering Facility: [facility] Address: [address] [address] Performed By: #### 5 8410-2 #### [facility] CLIA [id number] [address] Platelets (Bld) [#/Vol] 162 10*3/uL Normal 150-400 [facility] Comment on above: Order Comment: Speci men Type: BLOOD SPECIMEN Ordering Facility: [facility] Address: [address] [address] Performed By: #### 5 8410-2 #### [facility] CLIA [id number] [address] [place] [address] RBC (Bld) [#/Vol] 2.47 10*6/uL Low 4.20-6.00 [facility] Comment on above: Order Comment: Speci men Type: BLOOD SPECIMEN Ordering Facility: [facility] Address: [address] [place] [address] Performed By: #### 5 8410-2 #### [facility] CLIA [id number] [address] WBC (Bld) [#/Vol] 4.84 10*3/uL Normal 3.70-11.00 [facility] Comment on above: Order Comment: Speci men Type: BLOOD SPECIMEN Ordering Facility: [facility] Address: [address] [place] [address] Performed By: #### 5 8410-2 #### [facility] CLIA [id number] [address] CNDSon 01-09-2023 [facility] HNO ID: [id number] Author: Jacob Sanchez MD Service: General Surgery Author Type: Physician Type: Discharge Summary Filed: 01/11/2023 1:00 PM Note Text: DISCHARGE SUMMARY PATIENT NAME: Amaury Blank Code Status: DNR-CCA Highest Readmission Risk Score: 29 The 30 day readmissions risk score is derived from an internally validated risk model which evaluates patient level characteristics, utilization history, medication orders and lab results up until the day of discharge. Patients with a score of 40 or above are considered highest risk for readmission. Specific patient level drivers will be listed at the bottom of the summary. Admission Information Admission Information ADMIT DATE: 01/03/2023 DISCHARGE DATE: 01/09/2023 MY DOCTORS AND MEDICAL TEAM: [facility] Doctor: Jacob Sanchez MD Primary Care Provider: Elida Borges My Medical Team Members: Treatment Team: Attending Provider: Jacob Sanchez MD Consulting: Errol Rod MD Consulting: Michael Nick DPM Consulting: João Sales MD Consulting: CARIDAD MAYA MY CONDITION AT DISCHARGE: Stable REASON I WAS IN THE HOSPITAL: For evaluation and treatment of injuries sustained from a fall. SUMMARY OF WHAT HAPPENED WHILE I WAS IN THE HOSPITAL: Patient was evaluated in the ED at [facility] on 01/03/2023 after a fall. As a part of his workup, he would undergo CT imaging of his brain and cervical spine. He also had X-Rays completed of his chest and pelvis. His imaging studies would reveal a subacute intraparenchymal hemorrhage (brain bleed) and a complex left intertrochanteric femur fracture. Due to his injuries, he was admitted to the regular nursing floor under the trauma surgery service. Neurosurgery was consulted for the subacute brain bleed and orthopedic surgery was consulted for his femur fracture. His intraparenchymal hemorrhage was treated conservatively with non-operative management. Repeat CT imaging of the brain showed stable findings. A MRI of the brain was also completed which showed no mass lesion underlying the blood. He will need to follow up with neurosurgery in 2-4 weeks for another repeat CT scan of the brain. His femur fracture would require operative intervention. He would go to the operating room with Dr. Rod on 01/04/2023 for insertion of a left hip intramedullary nail. Following surgery, his weight bearing status would be weight bear as tolerated on his left leg. He finished a course of IV antibiotics (Ancef). He will need to follow up with Dr. Rod in 1-2 weeks for his post-op visit. During his stay, he was also seen by cardiology, hospital medicine, and podiatry. Patient has a history of chronic anemia and he would require 1 blood transfusion on 01/06/2023. His blood counts would remain stable after the transfusion. He also has a chronic left foot wound that podiatry would debride at the bedside on 01/06. A wound vac was placed over the wound after the procedure. The wound vac was removed on 01/09/2023. He will need to continue wet to dry dressing changes at discharge. Physical therapy and occupational therapy recommended that the patient be discharged to a retirement facility. He was deemed medically stable for discharge to a retirement facility by the attending trauma surgeon on 01/09/2023. OTHER PROBLEMS/DIAGNOSIS: Principal Problem (Resolved): Head injury, acute, without loss of consciousness, sequela Active Problems: Skin tear of left elbow without complication Noninfected skin tear of left leg Alteration in skin integrity due to moisture Coronary artery disease involving [place] coronary artery of [place] heart S/P CABG (coronary artery bypass graft) Atrial fibrillation (HCC) Primary hypertension Other hyperlipidemia COPD (chronic obstructive pulmonary disease) (HCC) Malnutrition of moderate degree (HCC) ABLA (acute blood loss anemia) Arterial insufficiency with ischemic ulcer ([facility]) Resolved Problems: Stasis ulcer (HCC) Fall Closed displaced comminuted fracture of shaft of left femur (HCC) Open wound of left foot Operations/Procedures: 1. Insertion of left hip intramedullary femoral nail on 01/04/[address] Rod 2. Left foot wound debridement by podiatry on 01/06/2023 TEST RESULTS NOT AVAILABLE AT THIS TIME: N/A Discharge Disposition Discharge Disposition: Residential Facility - Less than 30 Days Activity When You Leave the Hospital Do not bend over at the waist to lift heavy objects May walk with a walker No prolonged bedrest, longer than 8 hours in a 24 hour period Weight-bearing limited to: Weight bear as tolerated left leg. Diet Instructions Resume your pre-hospital diet For Pain When You Leave the Hospital Use acetaminophen (Tylenol) as recommended on the bottle Wound/Surgical Site Care Keep your dressing clean and dry Other: Please continue daily wet to dr (more content not included)... Normal [facility] SARS-CoV-2 RNA Resp Ql SANTANA+p robeon 01-09-2023 SARS-CoV-2 (COVID-19) RNA SANTANA+probe Ql (Resp) COVID 19 RESULT: Not detected The method used is RT-PCR or an equivalent NAAT method. Reference Range(the expected result in uninfected individuals): Not detected Normal [facility] Comment on above: Performed By: #### 9 4500-6 ####[facility] [id number] [address] [place] OF [facility] THERAPY NTon 01-09-2023 THERAPY NT HNO ID: [id number] Author: Tremayne Mckeon, PT Service: Physical Therapy Author Type: Physical Therapist Type: Therapy (PT/OT/Speech/Resp) Filed: 01/09/2023 9:26 AM Note Text: Physical Therapy Treatment SERVICE DATE: 01/09/2023 SERVICE TIME: 0847 to 09 ROOM: [id number] Recommended Discharge Disposition: Subacute/SNF Recommended Discharge Disposition Due to: Patient requires daily, facility-based rehabilitation from at least one discipline due to:, ADL impairment resulting in caregiver dependence, decline in functional status requiring daily skilled care, ongoing intervention of multiple therapy disciplines PT 6 Clicks Score: 15 Patient demonstrating progress towards goals, requiring min-mod assist with functional mobility. Patient improving ambulation distance, however declining further ambulation due to pain. Patient well below baseline, continue to recommend SNF at discharge to maximize strength and independence. Additional personnel present during visit: Karuna Lacey Precautions/Activity Restrictions: Fall Risk, Bed/Chair Alarm, Lines/Tubes/Drains, Weight Bearing Restrictions Extremity With Weight Bearing Restricted: Left Lower Extremity Left Lower Extremity Weight Bearing Status: WBAT Current Hospital Course: underwent L femur CMN repair 01/04. L frontal subacute intraparenchymal hemorrhage. Dressing to distal L LE wound 01/07 wound vac application Reason for Hospital Admission: fall, head injury, L femur fracture Relevant Past Medical History: CAD s/p CABG, A-fib, HTN, HLD, COPD, Falls, Skin tears Response to Therapy Interventions: Good Participation in Activities, Improved Tolerance for Activity, Low Activity Tolerance, Pain, Requires Additional Time to Complete Activities, Requires Encouragement to Complete Activities Continued Skilled Needs Due to: Functional Mobility/Skill Impairments, Safety Concerns Physical Therapy Problem List: Education Deficit, Edema, Pain, Safety Deficits, Impaired Self Care, Decreased Activity Tolerance, Decreased Range Of Motion, Decreased Strength, Functional Mobility Impairment, Balance Impaired Treatment Interventions: Education, Self Care / Home Management, Energy Conservation Training, Joint Mobility, Strengthening, Functional Mobility Training, Balance Training, Neuromuscular Re-education Plan for Next Visit: Bed Mobility, Gait Training, Sit to Stand Transfers, Standing Balance, Standing Tolerance, Walker Training Home Environment Patient Lives With: Self/Alone ( moved to Assisted Living 2 weeks prior) Assistance Available: None (children live out of state) Entry To Home: Stairs Number Of Stairs To Bed/Bath: flight (ranch home [place], pt uses lower level living room/laundry, upper level bedroom/bathroom/kitchen) Stairs to Bed/Bath with: Unilateral Rail Tub/Shower Type: walk in shower that had used and tub/shower that he had used Laundry: in basement, pt normally completes Equipment Owned: Walker- Wheeled, Rollator, Grab Bars- Shower, Shower Chair Prior Functional Level: Within Functional Limits, History of Falls Prior Functional Level Comments: At baseline pt is mod I for mobility AND self-care, using a rollator (has one on each level of the home). (+) drives. Doing his own groceries, meals, laundry, cleaning. Pt does report hx of multiple falls. recently transitioned into [place] Patient Report: Patient agreeable to PT session CURRENT FUNCTIONAL STATUS: Most recent performance mobility performed during session in bold, other mobility completed during prior session and may no longer be correct or appropriate to complete. Current Functional Mobility Assist Level Additional Information Rolling Supine to Sit Moderate Assistance, Additional Information cues to push through UE to achieve long sitting, assist at trunk to achieve upright posture, cues/assist to slide BLE towards edge of bed Sit to Supine Scooting Contact Guard Assistance Sit to Stand Minimal Assistance, Additional Information cues for hand placement, L foot forward for comfort, power through LE Stand to Sit Minimal Assistance, Additional Information cues to reach back for armrests of chair, left foot forward, slowly lower bottom, assist to control descent of trunk Bed to Chair Moderate Assistance, Additional Information Bed To Chair Transfer Type: Stepping Bed To Chair Transfer Equipment: Wheeled Walker, Gait Belt Toilet/Commode Gait Minimal Assistance, Additional Information Gait Device: Wheeled Walker Gait Distance (feet): 8' forward/backward cues for posture, leading forward with LLE first, emphasis to remain in walker frame, slow gait, min assist for balance. cues for backward stepping, leading with good LE, increased cuing for sequencing with continued assist for balance Stairs Curb Step Car Transfer Blank denney indicate activity not attempted Gait Deviations Left Lower Extremity (more content not included)... Normal [facility] Basic metabolic 2000 panelon 01-08-2023 Anion gap [Moles/Vol] 11 mmol/L Normal 9-18 [facility] Comment on above: Order Comment: Speci men Type: BLOOD SPECIMEN Ordering Facility: [facility] Address: [address] [place] [id number] Performed By: #### 5 8410-2 #### [facility] CLIA [id number] 1 [place] [address] [place] Calcium [Mass/Vol] 8.4 mg/dL Low 8.5-10.2 [facility] Comment on above: Order Comment: Speci men Type: BLOOD SPECIMEN Ordering Facility: [facility] Address: [address] [place] [address] Performed By: #### 5 8410-2 #### [facility] CLIA [id number] [address] [place] Chloride [Moles/Vol] 106 mmol/L High 97-105 [facility] Comment on above: Order Comment: Speci men Type: BLOOD SPECIMEN Ordering Facility: [facility] Address: [address] [place] [address] Performed By: #### 5 8410-2 #### [facility] CLIA [id number] [address] [place] CO2 [Moles/Vol] 20 mmol/L Low 22-30 [facility] Comment on above: Order Comment: Speci men Type: BLOOD SPECIMEN Ordering Facility: [facility] Address: [address] [place] [address] Performed By: #### 5 8410-2 #### [facility] CLIA [id number] [address] [place] Creatinine [Mass/Vol] 2.21 mg/dL High 0.73-1.22 [facility] Comment on above: Order Comment: Speci men Type: BLOOD SPECIMEN Ordering Facility: [facility] Address: [address] [place] [address] Performed By: #### 5 8410-2 #### [facility] CLIA [id number] [address] [place] ESTIMATED GLOMERULAR FILTRATION RATE 29 mL/min/1.73m??? Low >=60 [facility] Comment on above: Order Comment: Speci men Type: BLOOD SPECIMEN Ordering Facility: [facility] Address: [address] [place] [address] Result Comment: Lindsay mated Glomerular Filtration Rate (eGFR) is calculated using the 2020 CKD-EPI creatinine equation. This equation utilizes serum creatinine, sex, and age as parameters. The creatinine assay has traceable calibration to isotope dilution-mass spectrometry. Refer to KDIGO guidelines for clinical interpretation. In patients with unstable renal function, e.g. those with acute kidney injury, the eGFR may not accurately reflect actual GFR. Performed By: #### 5 8410-2 #### [facility] CLIA [id number] 1 [place] [address] [place] Glucose [Mass/Vol] 128 mg/dL High 74-99 [facility] Comment on above: Order Comment: Speci men Type: BLOOD SPECIMEN Ordering Facility: [facility] Address: [address] [place] [address] Result Comment: The [place] Diabetes [employer] (ADA) provides guidance for cutoff values for fasting glucose and random glucose. The ADA defines fasting as no caloric intake for at least 8 hours. Fasting plasma glucose results between 100 to 125 mg/dL indicate increased risk for diabetes (prediabetes). Fasting plasma glucose results greater than or equal to 126 mg/dL meet the criteria for diagnosis of diabetes. In the absence of unequivocal hyperglycemia, results should be confirmed by repeat testing. In a patient with classic symptoms of hyperglycemia or hyperglycemic crisis, random plasma glucose results greater than or equal to 200 mg/dL meet the criteria for diagnosis of diabetes. Reference: Standards of Medical Care in Diabetes 2016, [place] [employer]. Diabetes Care. 2016.39(Suppl 1). Performed By: #### 5 8410-2 #### [facility] CLIA [id number] 1 [place] [address] [place] Potassium [Moles/Vol] 4.3 mmol/L Normal 3.7-5.1 [facility] Comment on above: Order Comment: Speci men Type: BLOOD SPECIMEN Ordering Facility: [facility] Address: [address] [id number] Performed By: #### 5 8410-2 #### [facility] CLIA [id number] 1 [place] [address] [place] Sodium [Moles/Vol] 137 mmol/L Normal 136-144 [facility] Comment on above: Order Comment: Speci men Type: BLOOD SPECIMEN Ordering Facility: [facility] Address: [address] [address] Performed By: #### 5 8410-2 #### [facility] CLIA [id number] [address] STATES [facility] Urea nitrogen [Mass/Vol] 43 mg/dL High 9-24 [facility] Comment on above: Order Comment: Speci men Type: BLOOD SPECIMEN Ordering Facility: [facility] Address: [address] [address] Performed By: #### 5 8410-2 #### [facility] CLIA [id number] [address] CBC panel Auto (Bld)on 01-08 Erythrocyte distribution width (RBC) [Ratio] 14.9 % Normal 11.5-15.0 [facility] Comment on above: Order Comment: Speci men Type: BLOOD SPECIMEN Ordering Facility: [facility] Address: [address] [place] [address] Performed By: #### 5 8410-2 #### [facility] CLIA [id number] [address] Hematocrit (Bld) [Volume fraction] 24.5 % Low 39.0-51.0 [facility] Comment on above: Order Comment: Speci men Type: BLOOD SPECIMEN Ordering Facility: [facility] Address: [address] [place] [address] Performed By: #### 5 8410-2 #### [facility] CLIA [id number] [address] Hemoglobin (Bld) [Mass/Vol] 7.9 g/dL Low 13.0-17.0 [facility] Comment on above: Order Comment: Speci men Type: BLOOD SPECIMEN Ordering Facility: [facility] Address: [address] [place] [address] Performed By: #### 5 8410-2 #### [facility] CLIA [id number] [address] MCH (RBC) [Entitic mass] 32.1 pg Normal 26.0-34.0 [facility] Comment on above: Order Comment: Speci men Type: BLOOD SPECIMEN Ordering Facility: [facility] Address: [address] [address] Performed By: #### 5 8410-2 #### [facility] CLIA [id number] [address] STATES OF [facility] MCHC (RBC) [Mass/Vol] 32.2 g/dL Normal 30.5-36.0 [facility] Comment on above: Order Comment: Speci men Type: BLOOD SPECIMEN Ordering Facility: [facility] Address: [address] [place] [address] Performed By: #### 5 8410-2 #### [facility] CLIA [id number] [address] STATES OF [facility] MCV (RBC) [Entitic vol] 99.6 fL Normal 80.0-100.0 [facility] Comment on above: Order Comment: Speci men Type: BLOOD SPECIMEN Ordering Facility: [facility] Address: [address] [address] Performed By: #### 5 8410-2 #### [facility] CLIA [id number] [address] OF [facility] Nucleated RBC (Bld) [#/Vol] 10*3/uL Normal <0.01 [facility] Comment on above: Order Comment: Speci men Type: BLOOD SPECIMEN Ordering Facility: [facility] Address: [address] [address] Performed By: #### 5 8410-2 #### [facility] CLIA [id number] [address] OF [place] Platelet mean volume (Bld) [Entitic vol] 9.6 fL Normal 9.0-12.7 [facility] Comment on above: Order Comment: Speci men Type: BLOOD SPECIMEN Ordering Facility: [facility] Address: [address] [place] [address] Performed By: #### 5 8410-2 #### [facility] CLIA [id number] [address] OF [facility] Platelets (Bld) [#/Vol] 160 10*3/uL Normal 150-400 [facility] Comment on above: Order Comment: Speci men Type: BLOOD SPECIMEN Ordering Facility: [facility] Address: [address] [place] [address] Performed By: #### 5 8410-2 #### [facility] CLIA [id number] [address] OF [facility] RBC (Bld) [#/Vol] 2.46 10*6/uL Low 4.20-6.00 [facility] Comment on above: Order Comment: Speci men Type: BLOOD SPECIMEN Ordering Facility: [facility] Address: [address] [place] [address] Performed By: #### 5 8410-2 #### [facility] CLIA [id number] [address] WBC (Bld) [#/Vol] 5.51 10*3/uL Normal 3.70-11.00 [facility] Comment on above: Order Comment: Speci men Type: BLOOD SPECIMEN Ordering Facility: [facility] Address: [address] [place] [address] Performed By: #### 5 8410-2 #### [facility] CLIA [id number] [address] THERAPY NTon 01-08-2023 THERAPY NT HNO ID: [id number] Author: ROSALIO Heller/Gunner Service: Occupational Therapy Author Type: Occupational Therapist Type: Therapy (PT/OT/Speech/Resp) Filed: 01/08/2023 3:35 PM Note Text: Occupational Therapy Treatment SERVICE DATE: 01/08/2023 SERVICE TIME: 1411 to 1439 ROOM: [address] [address] Recommended Discharge Disposition: Subacute/SNF Recommended Discharge Disposition Comments: pt highly independent and now with ortho injury/surgery requring significant help with ADLs/mobility Recommended Discharge Disposition Due to: Patient requires daily, facility-based rehabilitation from at least one discipline due to:, decline in functional status requiring daily skilled care, ongoing intervention of multiple therapy disciplines OT 6 Clicks Score: 14 Patient with slow steady progress towards ongoing OT goals this date. Patient demonstrates fair carryover of adaptive equipment for lower body dressing with cues for sequencing and management of adaptive equipment. Patient continues to present below functional baseline requiring SNF upon discharge. Precautions/Activity Restrictions: Fall Risk, Bed/Chair Alarm, Lines/Tubes/Drains, Weight Bearing Restrictions Extremity With Weight Bearing Restricted: Left Lower Extremity Left Lower Extremity Weight Bearing Status: WBAT Current Hospital Course: underwent L femur CMN repair 01/04. L frontal subacute intraparenchymal hemorrhage. Dressing to distal L LE wound 01/07 wound vac application Reason for Hospital Admission: fall, head injury, L femur fracture Relevant Past Medical History: CAD s/p CABG, A-fib, HTN, HLD, COPD, Falls, Skin tears Response to Therapy Interventions: Good Participation in Activities, Improved Tolerance for Activity, Requires Additional Time to Complete Activities, Slow Progression with ADLs/IADLs Occupational Therapy Problem List: Education Deficit, Safety Deficits, Impaired Self Care, Decreased Activity Tolerance, Decreased Strength, Functional Mobility Impairment, Balance Impaired Cognition/Communication Deficits Responsiveness: Alert, Awake Follows Commands: 2-step Commands Treatment Interventions: Education, Self Care/Home Management, Functional Mobility Training, Strengthening, Balance Training Home Environment Patient Lives With: Self/Alone ( moved to Assisted Living 2 weeks prior) Assistance Available: None (children live out of state) Entry To Home: Stairs Number Of Stairs To Bed/Bath: flight (ranch home [place], pt uses lower level living room/laundry, upper level bedroom/bathroom/kitchen) Stairs to Bed/Bath with: Unilateral Rail Tub/Shower Type: walk in shower that had used and tub/shower that he had used Laundry: in basement, pt normally completes Equipment Owned: Walker- Wheeled, Rollator, Grab Bars- Shower, Shower Chair Prior Functional Level: Within Functional Limits, History of Falls Prior Functional Level Comments: At baseline pt is mod I for mobility AND self-care, using a rollator (has one on each level of the home). (+) drives. Doing his own groceries, meals, laundry, cleaning. Pt does report hx of multiple falls. 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 I broke my hip. I can stand, I just can't balance CURRENT FUNCTIONAL STATUS: Most recent performance mobility performed during session in bold, other mobility completed during prior session and may no longer be correct or appropriate to complete. Current Activities of Daily Living Assist Level Additional Information Feeding Set Up Grooming Moderate Assistance Bathing Upper Body Minimal Assistance Bathing Lower Body Moderate Assistance Dressing Upper Body Minimal Assistance Dressing Lower Body Maximal Assistance, Additional Information instruction in use of AE for management of LB clothing due to limited reach. Provision of physical demonstration with verbal instruction. Verbal and tactile cues for management of AE. Patient demonstrates fair carryover, able to thread RLE, requires assist for management of wound vac, assist to lift LLE to thread into garment , cues for functional reach to manage undergarment over hips and buttocks, multiple losses of balance with unilateral support in standing requiring cues to return hand to walker Toileting Maximal Assistance Instrumental Activities of Daily Living Assist Level Additional Information Meal/Beverage Prep Cleaning Laundry Medication Management with Strategies Functional Mobility Assist Level Additional Information Rolling Supine to Sit Moderate Assistance, Additional Information cues for sequencing, assist to manage LLE, assist at trunk Sit to Supine Moderate Assistance Scooting Sit to Stand Minimal Assistance, Additional Information multiple cues for safe hand placement to p (more content not included)... Normal [facility] Basic metabolic 2000 panelon 01-07-2023 Anion gap [Moles/Vol] 10 mmol/L Normal 9-18 [facility] Comment on above: Order Comment: Speci men Type: BLOOD SPECIMEN Ordering Facility: [facility] Address: [address] [address] Performed By: #### 5 8410-2 #### [facility] CLIA [id number] 1 [place] [address] [place] Calcium [Mass/Vol] 8.6 mg/dL Normal 8.5-10.2 [facility] Comment on above: Order Comment: Speci men Type: BLOOD SPECIMEN Ordering Facility: [facility] Address: [address] [address] Performed By: #### 5 8410-2 #### [facility] CLIA [id number] [address] [place] Chloride [Moles/Vol] 105 mmol/L Normal 97-105 [facility] Comment on above: Order Comment: Speci men Type: BLOOD SPECIMEN Ordering Facility: [facility] Address: [address] [place] [address] Performed By: #### 5 8410-2 #### [facility] CLIA [id number] [address] OF [facility] CO2 [Moles/Vol] 22 mmol/L Normal 22-30 [facility] Comment on above: Order Comment: Speci men Type: BLOOD SPECIMEN Ordering Facility: [facility] Address: [address] [place] [address] Performed By: #### 5 8410-2 #### [facility] CLIA [id number] [address] STATES OF [facility] Creatinine [Mass/Vol] 2.38 mg/dL High 0.73-1.22 [facility] Comment on above: Order Comment: Speci men Type: BLOOD SPECIMEN Ordering Facility: [facility] Address: [address] [place] [address] Performed By: #### 5 8410-2 #### [facility] CLIA [id number] [address] ESTIMATED GLOMERULAR FILTRATION RATE 27 mL/min/1.73m??? Low >=60 [facility] Comment on above: Order Comment: Speci men Type: BLOOD SPECIMEN Ordering Facility: [facility] Address: [address] [place] [address] Result Comment: Lindsay mated Glomerular Filtration Rate (eGFR) is calculated using the 2020 CKD-EPI creatinine equation. This equation utilizes serum creatinine, sex, and age as parameters. The creatinine assay has traceable calibration to isotope dilution-mass spectrometry. Refer to KDIGO guidelines for clinical interpretation. In patients with unstable renal function, e.g. those with acute kidney injury, the eGFR may not accurately reflect actual GFR. Performed By: #### 5 8410-2 #### [facility] CLIA [id number] 1 [place] [address] [place] Glucose [Mass/Vol] 103 mg/dL High 74-99 [facility] Comment on above: Order Comment: Migel barnard Type: BLOOD SPECIMEN Ordering Facility: [facility] Address: [address] [place] [address] Result Comment: The [place] Diabetes Association (ADA) provides guidance for cutoff values for fasting glucose and random glucose. The ADA defines fasting as no caloric intake for at least 8 hours. Fasting plasma glucose results between 100 to 125 mg/dL indicate increased risk for diabetes (prediabetes). Fasting plasma glucose results greater than or equal to 126 mg/dL meet the criteria for diagnosis of diabetes. In the absence of unequivocal hyperglycemia, results should be confirmed by repeat testing. In a patient with classic symptoms of hyperglycemia or hyperglycemic crisis, random plasma glucose results greater than or equal to 200 mg/dL meet the criteria for diagnosis of diabetes. Reference: Standards of Medical Care in Diabetes 2016, [place] [employer]. Diabetes Care. 2016.39(Suppl 1). Performed By: #### 5 8410-2 #### [facility] CLIA [id number] 1 [place] [address] [place] Potassium [Moles/Vol] 4.4 mmol/L Normal 3.7-5.1 [facility] Comment on above: Order Comment: Migel barnard Type: BLOOD SPECIMEN Ordering Facility: [facility] Address: [address] [place] [address] Performed By: #### 5 8410-2 #### [facility] CLIA [id number] 1 [place] [address] [place] Sodium [Moles/Vol] 137 mmol/L Normal 136-144 [facility] Comment on above: Order Comment: Migel akil Type: BLOOD SPECIMEN Ordering Facility: [facility] Address: [address] [place] [address] Performed By: #### 5 8410-2 #### [facility] CLIA [id number] 1 [place] [address] [place] Urea nitrogen [Mass/Vol] 42 mg/dL High 9-24 [facility] Comment on above: Order Comment: Speci men Type: BLOOD SPECIMEN Ordering Facility: [facility] Address: [address] [place] [address] Performed By: #### 5 8410-2 #### [facility] CLIA [id number] [address] [place] CASE MANAGEMon 01-07-2023 CASE MANAGEM HNO ID: [id number] Author: ANNE Pena Service: ? Author Type: Supervisor Winter Type: Care Mgt Progress Note Filed: 01/07/2023 8:18 AM Note Text: CARE MANAGEMENT PROGRESS NOTE SERVICE DATE: 01/07/2023 SERVICE TIME: 8:17 AM LOS: 4 days Trauma Assessment- Reviewed chart. Pt's tox screen was not done at this time. There is no substance abuse concerns. Pt was admitted from a snf when he fell. Trauma assessment not appropriate at this time. See CM note for dc planning. SIGNATURE: ANNE Pena PATIENT NAME: Amaury Blank DATE: January 07, 2023 TIME: 8:17 AM PAGER/CONTACT #: [phone] Normal [facility] CBC panel Auto (Bld)on 01-07 Erythrocyte distribution width (RBC) [Ratio] 15.1 % High 11.5-15.0 [facility] Comment on above: Order Comment: Speci men Type: BLOOD SPECIMEN Ordering Facility: [facility] Address: [address] [place] [address] Performed By: #### 5 8410-2 #### [facility] CLIA [id number] [address] [place] Hematocrit (Bld) [Volume fraction] 25.5 % Low 39.0-51.0 [facility] Comment on above: Order Comment: Speci men Type: BLOOD SPECIMEN Ordering Facility: [facility] Address: [address] [place] [address] Performed By: #### 5 8410-2 #### [place] CLIA [id number] [address] Hemoglobin (Bld) [Mass/Vol] 8.2 g/dL Low 13.0-17.0 [facility] Comment on above: Order Comment: Speci men Type: BLOOD SPECIMEN Ordering Facility: [facility] Address: [address] [place] [address] Performed By: #### 5 8410-2 #### [facility] CLIA [id number] [address] MCH (RBC) [Entitic mass] 31.8 pg Normal 26.0-34.0 [facility] Comment on above: Order Comment: Speci men Type: BLOOD SPECIMEN Ordering Facility: [facility] Address: [address] [place] [address] Performed By: #### 5 8410-2 #### [facility] CLIA [id number] [address] MCHC (RBC) [Mass/Vol] 32.2 g/dL Normal 30.5-36.0 [facility] Comment on above: Order Comment: Speci men Type: BLOOD SPECIMEN Ordering Facility: [facility] Address: [address] [place] [address] Performed By: #### 5 8410-2 #### [facility] CLIA [id number] [address] MCV (RBC) [Entitic vol] 98.8 fL Normal 80.0-100.0 [facility] Comment on above: Order Comment: Speci men Type: BLOOD SPECIMEN Ordering Facility: [facility] Address: [address] [place] [address] Performed By: #### 5 8410-2 #### [facility] CLIA [id number] [address] Nucleated RBC (Bld) [#/Vol] 10*3/uL Normal <0.01 [facility] Comment on above: Order Comment: Speci men Type: BLOOD SPECIMEN Ordering Facility: [facility] Address: [address] [place] [address] Performed By: #### 5 8410-2 #### [facility] CLIA [id number] [address] Platelet mean volume (Bld) [Entitic vol] 9.7 fL Normal 9.0-12.7 [facility] Comment on above: Order Comment: Speci men Type: BLOOD SPECIMEN Ordering Facility: [facility] Address: [address] [place] [address] Performed By: #### 5 8410-2 #### [facility] CLIA [id number] [address] Platelets (Bld) [#/Vol] 161 10*3/uL Normal 150-400 [facility] Comment on above: Order Comment: Speci men Type: BLOOD SPECIMEN Ordering Facility: [facility] Address: [address] [place] [address] Performed By: #### 5 8410-2 #### [facility] CLIA [id number] [address] RBC (Bld) [#/Vol] 2.58 10*6/uL Low 4.20-6.00 [facility] Comment on above: Order Comment: Speci men Type: BLOOD SPECIMEN Ordering Facility: [facility] Address: [address] [place] [address] Performed By: #### 5 8410-2 #### [facility] CLIA [id number] [address] OF [place] WBC (Bld) [#/Vol] 5.19 10*3/uL Normal 3.70-11.00 [facility] Comment on above: Order Comment: Speci men Type: BLOOD SPECIMEN Ordering Facility: [facility] Address: [address] [place] [address] Performed By: #### 5 8410-2 #### [facility] CLIA [id number] [address] CONSULT PROGon 01-07-2023 CONSULT PROG HNO ID: [id number] Author: Carly Sinclair MD Service: Hospital Medicine Author Type: Physician Type: Consult Progress Note Filed: 01/07/2023 12:36 PM Note Text: DEPARTMENT OF HOSPITAL MEDICINE PROGRESS NOTE SERVICE DATE: 01/07/2023 Hospital Medicine/Primary Attending: Carly Ramirez MD NIGHT AND WEEKEND COVERAGE: After 7pm please page [phone] SUBJECTIVE: resting in bed , no complaints Wound care at bedside Plan to place a wound vac/left foot Denies CP/SOB. Denies nausea/vomiting/diarrhea. OBJECTIVE: PHYSICAL EXAM: BP 133/60 Pulse 69 Temp (Src) 98.2 (Oral) Resp 18 Ht 5' 10 (1.78m) Wt 165 lb 9.1 oz (75.1kg) SpO2 100% BMI 23.76 kg/(m2). O2 Therapy: Room Air, Liters: 2 General: NAD, appears comfortable Resp: Clear to auscultation B/L, no wheeze/rhonchi, unlabored CV: RRR, Normal S1S2, No murmur/rub/gallop GI: soft, NT/ND, + BS Ext: no cyanosis/clubbing/edema Neuro: AANDO x 3, speech fluent MEDICATIONS: Current Facility-Administered Medications Medication Dose Route Frequency heparin 5,000 Units injection 5,000 Units SUBCUTANEOUS q 8 H lisinopril 10 mg tab(s) (ZESTRIL) 10 mg ORAL DAILY ferrous sulfate 325 mg tab(s) 325 mg ORAL DAILY WITH BREAKFAST senna-docusate 8.6-50 mg 1 tablet (SENNA-S) 1 tablet ORAL BID ergocalciferol (vitamin D2) 50,000 Units cap(s) (DRISDOL) 50,000 Units ORAL 1/WK NaCl 0.9% iv flush bag 20 mL INTRAVENOUS PRN ondansetron 4 mg tab(s) (ZOFRAN) 4 mg ORAL q 6 H PRN Or ondansetron (PF) 4 mg injection (ZOFRAN) 4 mg INTRAVENOUS q 6 H PRN oxyCODONE IR 5-10 mg tab(s) (ROXICODONE) 5-10 mg ORAL q 6 H PRN acetaminophen 975 mg tab(s) (TYLENOL) 975 mg ORAL q 6 H pantoprazole 40 mg injection (PROTONIX) 40 mg INTRAVENOUS DAILY (6 AM) zinc oxide 20 % TOPICAL BID amiodarone 200 mg tab(s) (PACERONE) 200 mg ORAL DAILY atorvastatin 40 mg tab(s) (LIPITOR) 40 mg ORAL AT BEDTIME carvedilol 3.125 mg tab(s) (COREG) 3.125 mg ORAL BID w MEALS levothyroxine 75 mcg tab(s) (SYNTHROID) 75 mcg ORAL DAILY (6 AM) DATA: Diagnostic tests reviewed for today's visit: CBC, Coags, BMP, Mg, Phos Recent Labs 01/07/23 0218 01/06/23 1622 01/06/23 0100 01/05/23 0010 WBC 5.19 5.33 5.70 8.02 HB 8.2* 8.0* 6.8* 7.5* HCT 25.5* 25.5* 22.7* 24.0* PLT 161 151 141* 181 NA 137 -- 134* 132* K 4.4 -- 4.4 5.3* CHLOR 105 -- 103 101 CO2 22 -- 22 21* BUN 42* -- 40* 40* CREAT 2.38* -- 2.47* 2.27* GLUC 103* -- 117* 101* CA 8.6 -- 8.5 8.5 CSF AND Dilantin Liver Function, Amylase, AND Lipase Cardiac Enzymes ABGs Problem List Head injury, acute, without loss of consciousness, sequela (POA: Yes) Stasis ulcer (HCC) (POA: Status not on file) Skin tear of left elbow without complication (POA: Status not on file) Noninfected skin tear of left leg (POA: Status not on file) Alteration in skin integrity due to moisture (POA: Status not on file) Coronary artery disease involving [place] coronary artery of [place] heart (POA: Status not on file) S/P CABG (coronary artery bypass graft) (POA: Status not on file) Atrial fibrillation (HCC) (POA: Status not on file) Primary hypertension (POA: Status not on file) Other hyperlipidemia (POA: Status not on file) COPD (chronic obstructive pulmonary disease) (HCC) (POA: Status not on file) Fall (POA: Status not on file) Malnutrition of moderate degree (HCC) (POA: Yes) ABLA (acute blood loss anemia) (POA: Yes) Closed displaced comminuted fracture of shaft of left femur (HCC) (POA: Status not on file) HOSPITAL COURSE: This is a 82 year old male with past medical history significant for CAD, ulcerative colitis with recurrent GI bleeds, PAD and frequent falls presents from home with mechanical fall transferred from [place] Hospital. He does have a wound on his left lower extremity which has been getting daily wound care treatment at the facility. Patient was found to have Left intertrochanteric fracture and admitted for surgical intervention. 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 Normal [facility] CONSULT PROG HNO ID: [id number] Author: Priscilla Morgan APRN.BOAT REPAIRER Service: Wound/Ostomy Author Type: Nurse Practitioner Type: Consult Progress Note Filed: 01/07/2023 1:20 PM Note Text: WOUND CARE SERVICE PROGRESS ARCADE GAME TECHNICIAN NOTE SERVICE DATE: 01/07/2023 SERVICE TIME: 10:00 am REASON FOR CONSULT: Consultation requested by Michael Nick DPM for an opinion regarding placement of NPWT wound vac to left foot. My final recommendations will be communicated back to the requesting physician by way of shared Medical record or letter to requesting physician via US mail. CHIEF COMPLAINT: left foot wound Subjective HISTORY OF PRESENT ILLNESS: Mr. Blakn is a 82 year old male who is seen today with Kathi Hernandez, Wound/industrial machine operator, to apply NPWT wound vac to left foot wound. Dr. Nick recently debrided foot wound at bedside and is now requesting a NPWT wound vac dressing be applied due to size of wound and tunneling. PERTINENT REVIEW OF SYSTEMS: GENERAL: denies fever or chills PAIN ASSESSMENT: denies pain to foot wound SKIN: admits to wound on dorsal foot RESPIRATORY: denies SOB or cough GI/: denies nausea or vomiting PAST MEDICAL HISTORY Diagnosis Date CAD (coronary artery disease) History of GI bleed HTN (hypertension) Hyperlipidaemia Hypothyroidism PAD (peripheral artery disease) (HCC) UC (ulcerative colitis) (HCC) PAST SURGICAL HISTORY Procedure Laterality Date PAST SURGICAL HISTORY OF Right 1966 right hand PAST SURGICAL HISTORY OF Right 2004 right flank chronic inflammed tissue PAST SURGICAL HISTORY OF multiple skin bx--benign Social History Tobacco Use Smoking status: Former Substance Use Topics Alcohol use: Yes Drug use: No FAMILY HISTORY Problem Relation Age of Onset Colon Cancer Paternal Grandfather Breast Cancer Mother MEDICATIONS: Current Facility-Administered Medications Medication Dose Route Frequency NaCl 0.9% iv flush bag 20 mL INTRAVENOUS PRN ondansetron 4 mg tab(s) (ZOFRAN) 4 mg ORAL q 6 H PRN Or ondansetron (PF) 4 mg injection (ZOFRAN) 4 mg INTRAVENOUS q 6 H PRN oxyCODONE IR 5-10 mg tab(s) (ROXICODONE) 5-10 mg ORAL q 6 H PRN acetaminophen 975 mg tab(s) (TYLENOL) 975 mg ORAL q 6 H pantoprazole 40 mg injection (PROTONIX) 40 mg INTRAVENOUS DAILY (6 AM) zinc oxide 20 % TOPICAL BID amiodarone 200 mg tab(s) (PACERONE) 200 mg ORAL DAILY atorvastatin 40 mg tab(s) (LIPITOR) 40 mg ORAL AT BEDTIME carvedilol 3.125 mg tab(s) (COREG) 3.125 mg ORAL BID w MEALS levothyroxine 75 mcg tab(s) (SYNTHROID) 75 mcg ORAL DAILY (6 AM) ergocalciferol (vitamin D2) 50,000 Units cap(s) (DRISDOL) 50,000 Units ORAL 1/WK ferrous sulfate 325 mg tab(s) 325 mg ORAL DAILY WITH BREAKFAST senna-docusate 8.6-50 mg 1 tablet (SENNA-S) 1 tablet ORAL BID heparin 5,000 Units injection 5,000 Units SUBCUTANEOUS q 8 H lisinopril 10 mg tab(s) (ZESTRIL) 10 mg ORAL DAILY ALLERGIES Allergen Reactions Amlodipine Rash Lovastatin Hives Objective PHYSICAL EXAM: BP 133/60 Pulse 69 Temp 36.8 ?C (98.2 ?F) (Oral) Resp 18 Ht 177.8 cm (5' 10) Wt 75.1 kg (165 lb 9.1 oz) SpO2 100% BMI 23.76 kg/m? General appearance: alert and oriented male sitting up in chair Respiratory: no SOB or cough noted Cardiovascular: left foot warm to touch, unable to palpate DP and PT pulses. Extremities: large wound to left dorsal foot Integumentary: wound to left foot and abrasions to left anterior leg. DATA Labs: WBC 5.19 Presenting wound information: Wound 01/03/23 1515 Mixed Vascular Wound Foot Left (Active) Assessments 01/07/2023 10:07 AM Wound Image Site Assessment Red;[place];Black Adelina-Wound Assessment Edema;[place] Shape irregular Wound Length (cm) 7.1 cm Wound Width (cm) 4.4 cm Wound Surface Area (cm2) 31.24 cm2 Wound Depth (cm) 1.7 cm (tunnel at 11 o'clock = 2.2 cm and tunnel at 1 o'clock = 2.1 cm) Wound Volume (cm3) 53.108 cm3 Wound Healing % -146 Drainage Description Serosanguineous Drainage Amount Moderate Odor None Adelina-Wound Treatment Skin Prep Treatments Cleansed Dressing Other (Comment) (NPWT wound vac applied) Dressing Changed New Dressing Status Clean;Dry;Intact Active Orders Date Order Priority Status Authorizing Provider 01/07/23 1304 WOUND VAC ([place], [place]) Routine Active Priscilla Morgan APRN.BOAT REPAIRER - Site:: Left foot - Target Pressure (MMHG):: 150 - Cycle:: Continuous - Change Canister / Dressing:: Other: See Comment Wound 01/03/23 1538 Skin Tear Pretibial Left (Active) Assessments 01/07/2023 10:08 AM Wound Image Site Assessment Red;Dry Adelina-Wound Assessment Intact Shape scattered scabbed areas Drainage Amount None Treatments Cleansed Dressing Xeroform;Gauze;Kerlix Dressing Changed New Dressing Status Clean;Dry;Intact Active Orders Date Order Priority Status Authorizing Provider 01/03/23 1542 DRESSING CARE (SPECIFY) ([place]) Routine Active Bing Perez MD - Specify:: xeroform to skin tears left elbow (more content not included)... Normal [facility] THERAPY NTon 01-07-2023 THERAPY NT HNO ID: [id number] Author: Samantha Hoffmann PT Service: Physical Therapy Author Type: Physical Therapist Type: Therapy (PT/OT/Speech/Resp) Filed: 01/07/2023 11:03 AM Note Text: Physical Therapy Treatment SERVICE DATE: 01/07/2023 SERVICE TIME: 1030 to 1054 ROOM: [place] [address] Recommended Discharge Disposition: Subacute/SNF Recommended Discharge Disposition Due to: Patient requires daily, facility-based rehabilitation from at least one discipline due to:, ADL impairment resulting in caregiver dependence, decline in functional status requiring daily skilled care, ongoing intervention of multiple therapy disciplines PT 6 Clicks Score: 11 This patient was seen immediately post wound vac application and he preferred not to stand at this time, he was already up in the chair. The patient was assisted with general strengthening for both lower extremity. Education on posture in the chair, assisted to reposition. Precautions/Activity Restrictions: Fall Risk, Bed/Chair Alarm, Lines/Tubes/Drains, Weight Bearing Restrictions Extremity With Weight Bearing Restricted: Left Lower Extremity Left Lower Extremity Weight Bearing Status: WBAT Current Hospital Course: underwent L femur CMN repair 01/04. L frontal subacute intraparenchymal hemorrhage. Dressing to distal L LE wound 01/07 wound vac application Reason for Hospital Admission: fall, head injury, L femur fracture Relevant Past Medical History: CAD s/p CABG, A-fib, HTN, HLD, COPD, Falls, Skin tears Response to Therapy Interventions: Good Participation in Activities Physical Therapy Problem List: Education Deficit, Edema, Pain, Safety Deficits, Impaired Self Care, Decreased Activity Tolerance, Decreased Range Of Motion, Decreased Strength, Functional Mobility Impairment, Balance Impaired Treatment Interventions: Education, Self Care / Home Management, Energy Conservation Training, Joint Mobility, Strengthening, Functional Mobility Training, Balance Training, Neuromuscular Re-education Home Environment Patient Lives With: Self/Alone ( moved to Assisted Living 2 weeks prior) Assistance Available: None (children live out of state) Entry To Home: Stairs Number Of Stairs To Bed/Bath: flight (ranch home [place], pt uses lower level living room/laundry, upper level bedroom/bathroom/kitchen) Stairs to Bed/Bath with: Unilateral Rail Tub/Shower Type: walk in shower that had used and tub/shower that he had used Laundry: in basement, pt normally completes Equipment Owned: Walker- Wheeled, Rollator, Grab Bars- Shower, Shower Chair Prior Functional Level: Within Functional Limits, History of Falls Prior Functional Level Comments: At baseline pt is mod I for mobility AND self-care, using a rollator (has one on each level of the home). (+) drives. Doing his own groceries, meals, laundry, cleaning. Pt does report hx of multiple falls. recently transitioned into AL Patient Report: feels ok, just had vac put on left dorsum foot CURRENT FUNCTIONAL STATUS: Most recent performance Current Functional Mobility Assist Level Additional Information Rolling Supine to Sit Moderate Assistance, Additional Information Sit to Supine Scooting Minimal Assistance, Additional Information Sit to Stand Moderate Assistance, Additional Information Stand to Sit Maximal Assistance, Additional Information Bed to Chair Moderate Assistance, Additional Information Bed To Chair Transfer Type: Stepping Bed To Chair Transfer Equipment: Wheeled Walker, Gait Belt Toilet/Commode Gait Moderate Assistance, Additional Information Gait Device: Wheeled Walker Gait Distance (feet): 1 x 4 feet Stairs Curb Step Car Transfer Blank denney indicate activity not attempted General Deviations/Observations: Antalgic gait, Difficulty changing direction/turning, Improper distancing from assistive device, Loss of Balance, Shuffling Gait, Kiarra decreased, Step length decreased Balance: Static Sitting, Static Standing, Dynamic Standing Static Sitting Balance: Good Patient able to maintain balance without handhold support, limited postural sway Static Standing Balance: Fair Patient able to maintain balance with handhold support, may require occasional minimal assistance Dynamic Standing Balance: Poor Patient unable to accept challenge or move without loss of balance JH-HLM: 3: Sit at edge of bed Learning/Educational Needs: Discharge Plan, Functional Activities/Mobility, Rehabilitation Techniques and Procedures, Safety Goals for Plan of Care: Patient/Caregiver Goals: Walk Able to Perform HEP with: Set Up Transfer Supine to/from Sit with: Minimal Assistance Transfer Sit to/from Stand with: Minimal Assistance Ambulate with: Minimal Assistance Distance: 30' x 2 Device: Wheeled Walker Transfer: stand-pivot with min assist Progress Toward Goals: Progressing as expected Rehab Potential: Good Patient will be discontinued from P (more content not included)... Normal [facility] Basic metabolic 2000 panelon 01-06-2023 Anion gap [Moles/Vol] 9 mmol/L Normal 9-18 [facility] Comment on above: Order Comment: Speci men Type: BLOOD SPECIMEN Ordering Facility: [facility] Address: [address] [place] [address] Performed By: #### 5 8410-2 #### [facility] CLIA [id number] [address] [place] Calcium [Mass/Vol] 8.5 mg/dL Normal 8.5-10.2 [facility] Comment on above: Order Comment: Speci men Type: BLOOD SPECIMEN Ordering Facility: [facility] Address: [address] [place] [address] Performed By: #### 5 8410-2 #### [facility] CLIA [id number] 1 [place] [address] [place] Chloride [Moles/Vol] 103 mmol/L Normal 97-105 [facility] Comment on above: Order Comment: Speci men Type: BLOOD SPECIMEN Ordering Facility: [facility] Address: [address] [place] [address] Performed By: #### 5 8410-2 #### [facility] CLIA [id number] 1 [place] [address] [place] CO2 [Moles/Vol] 22 mmol/L Normal 22-30 [facility] Comment on above: Order Comment: Speci men Type: BLOOD SPECIMEN Ordering Facility: [facility] Address: [address] [place] [address] Performed By: #### 5 8410-2 #### [facility] CLIA [id number] 1 [place] [address] [place] Creatinine [Mass/Vol] 2.47 mg/dL High 0.73-1.22 [facility] Comment on above: Order Comment: Migel barnard Type: BLOOD SPECIMEN Ordering Facility: [facility] Address: [address] [place] [address] Performed By: #### 5 8410-2 #### [facility] CLIA [id number] 1 [place] [address] [place] ESTIMATED GLOMERULAR FILTRATION RATE 26 mL/min/1.73m??? Low >=60 [facility] Comment on above: Order Comment: Migel barnard Type: BLOOD SPECIMEN Ordering Facility: [facility] Address: [address] [place] [address] Result Comment: Lindsay mated Glomerular Filtration Rate (eGFR) is calculated using the 2020 CKD-EPI creatinine equation. This equation utilizes serum creatinine, sex, and age as parameters. The creatinine assay has traceable calibration to isotope dilution-mass spectrometry. Refer to KDIGO guidelines for clinical interpretation. In patients with unstable renal function, e.g. those with acute kidney injury, the eGFR may not accurately reflect actual GFR. Performed By: #### 5 8410-2 #### [facility] CLIA [id number] [address] [place] [address] [place] Glucose [Mass/Vol] 117 mg/dL High 74-99 [facility] Comment on above: Order Comment: Jamesheather barnard Type: BLOOD SPECIMEN Ordering Facility: [facility] Address: [address] [place] [address] Result Comment: The [place] Diabetes Association (ADA) provides guidance for cutoff values for fasting glucose and random glucose. The ADA defines fasting as no caloric intake for at least 8 hours. Fasting plasma glucose results between 100 to 125 mg/dL indicate increased risk for diabetes (prediabetes). Fasting plasma glucose results greater than or equal to 126 mg/dL meet the criteria for diagnosis of diabetes. In the absence of unequivocal hyperglycemia, results should be confirmed by repeat testing. In a patient with classic symptoms of hyperglycemia or hyperglycemic crisis, random plasma glucose results greater than or equal to 200 mg/dL meet the criteria for diagnosis of diabetes. Reference: Standards of Medical Care in Diabetes 2016, [place] [employer] Association. Diabetes Care. 2016.39(Suppl 1). Performed By: #### 5 8410-2 #### [facility] CLIA [id number] [address] [place] Potassium [Moles/Vol] 4.4 mmol/L Normal 3.7-5.1 [facility] Comment on above: Order Comment: Speci men Type: BLOOD SPECIMEN Ordering Facility: [facility] Address: [address] [place] [address] Performed By: #### 5 8410-2 #### [facility] CLIA [id number] [address] [place] Sodium [Moles/Vol] 134 mmol/L Low 136-144 [facility] Comment on above: Order Comment: Speci men Type: BLOOD SPECIMEN Ordering Facility: [facility] Address: [address] [place] [address] Performed By: #### 5 8410-2 #### [facility] CLIA [id number] [address] [place] Urea nitrogen [Mass/Vol] 40 mg/dL High 9-24 [facility] Comment on above: Order Comment: Speci men Type: BLOOD SPECIMEN Ordering Facility: [facility] Address: [address] [place] [address] Performed By: #### 5 8410-2 #### [facility] CLIA [id number] [address] [place] CBC panel Auto (Bld)on 01-06 Erythrocyte distribution width (RBC) [Ratio] 15.3 % High 11.5-15.0 [facility] Comment on above: Order Comment: Speci men Type: BLOOD SPECIMEN Ordering Facility: [facility] Address: [address] [place] [address] Performed By: #### 5 8410-2 #### [facility] CLIA [id number] [address] [place] Hematocrit (Bld) [Volume fraction] 25.5 % Low 39.0-51.0 [facility] Comment on above: Order Comment: Speci men Type: BLOOD SPECIMEN Ordering Facility: [facility] Address: [address] [place] [address] Performed By: #### 5 8410-2 #### [facility] CLIA [id number] [address] Hemoglobin (Bld) [Mass/Vol] 8.0 g/dL Low 13.0-17.0 [facility] Comment on above: Order Comment: Speci men Type: BLOOD SPECIMEN Ordering Facility: [facility] Address: [address] [place] [address] Performed By: #### 5 8410-2 #### [facility] CLIA [id number] [address] MCH (RBC) [Entitic mass] 31.5 pg Normal 26.0-34.0 [facility] Comment on above: Order Comment: Speci men Type: BLOOD SPECIMEN Ordering Facility: [facility] Address: [address] [place] [address] Performed By: #### 5 8410-2 #### [facility] CLIA [id number] [address] MCHC (RBC) [Mass/Vol] 31.4 g/dL Normal 30.5-36.0 [facility] Comment on above: Order Comment: Speci men Type: BLOOD SPECIMEN Ordering Facility: [facility] Address: [address] [place] [address] Performed By: #### 5 8410-2 #### [facility] CLIA [id number] [address] MCV (RBC) [Entitic vol] 100.4 fL High 80.0-100.0 [facility] Comment on above: Order Comment: Speci men Type: BLOOD SPECIMEN Ordering Facility: [facility] Address: [address] [place] [address] Performed By: #### 5 8410-2 #### [facility] CLIA [id number] [address] Nucleated RBC (Bld) [#/Vol] 10*3/uL Normal <0.01 [facility] Comment on above: Order Comment: Speci men Type: BLOOD SPECIMEN Ordering Facility: [facility] Address: [address] [place] [address] Performed By: #### 5 8410-2 #### [facility] CLIA [id number] [address] [place] Platelet mean volume (Bld) [Entitic vol] 9.5 fL Normal 9.0-12.7 [facility] Comment on above: Order Comment: Speci men Type: BLOOD SPECIMEN Ordering Facility: [facility] Address: [address] [place] [address] Performed By: #### 5 8410-2 #### [facility] CLIA [id number] [address] [place] Platelets (Bld) [#/Vol] 151 10*3/uL Normal 150-400 [facility] Comment on above: Order Comment: Speci men Type: BLOOD SPECIMEN Ordering Facility: [facility] Address: [address] [place] [address] Performed By: #### 5 8410-2 #### [facility] CLIA [id number] [address] [place] RBC (Bld) [#/Vol] 2.54 10*6/uL Low 4.20-6.00 [facility] Comment on above: Order Comment: Speci men Type: BLOOD SPECIMEN Ordering Facility: [facility] Address: [address] [place] [address] Performed By: #### 5 8410-2 #### [facility] CLIA [id number] [address] [place] WBC (Bld) [#/Vol] 5.33 10*3/uL Normal 3.70-11.00 [facility] Comment on above: Order Comment: Speci men Type: BLOOD SPECIMEN Ordering Facility: [facility] Address: [address] [place] [address] Performed By: #### 5 8410-2 #### [facility] CLIA [id number] [address] Erythrocyte distribution width (RBC) [Ratio] 14.4 % Normal 11.5-15.0 [facility] Comment on above: Order Comment: Speci men Type: BLOOD SPECIMEN Ordering Facility: [facility] Address: [address] [place] [address] Performed By: #### 5 8410-2 #### [facility] CLIA [id number] [address] Hematocrit (Bld) [Volume fraction] 22.7 % Low 39.0-51.0 [facility] Comment on above: Order Comment: Speci men Type: BLOOD SPECIMEN Ordering Facility: [facility] Address: [address] [place] [address] Performed By: #### 5 8410-2 #### [facility] CLIA [id number] [address] Hemoglobin (Bld) [Mass/Vol] 6.8 g/dL Low 13.0-17.0 [facility] Comment on above: Order Comment: Speci men Type: BLOOD SPECIMEN Ordering Facility: [facility] Address: [address] [place] [address] Performed By: #### 5 8410-2 #### [facility] CLIA [id number] [address] MCH (RBC) [Entitic mass] 30.9 pg Normal 26.0-34.0 [facility] Comment on above: Order Comment: Speci men Type: BLOOD SPECIMEN Ordering Facility: [facility] Address: [address] [place] [address] Performed By: #### 5 8410-2 #### [facility] CLIA [id number] [address] [place] [facility] MCHC (RBC) [Mass/Vol] 30.0 g/dL Low 30.5-36.0 [facility] Comment on above: Order Comment: Speci men Type: BLOOD SPECIMEN Ordering Facility: [facility] Address: [address] [place] [address] Performed By: #### 5 8410-2 #### [facility] CLIA [id number] [address] MCV (RBC) [Entitic vol] 103.2 fL High 80.0-100.0 [facility] Comment on above: Order Comment: Speci men Type: BLOOD SPECIMEN Ordering Facility: [facility] Address: [address] [place] [address] Performed By: #### 5 8410-2 #### [facility] CLIA [id number] [address] Nucleated RBC (Bld) [#/Vol] 10*3/uL Normal <0.01 [facility] Comment on above: Order Comment: Speci men Type: BLOOD SPECIMEN Ordering Facility: [facility] Address: [address] [place] [address] Performed By: #### 5 8410-2 #### [facility] CLIA [id number] [address] Platelet mean volume (Bld) [Entitic vol] 9.5 fL Normal 9.0-12.7 [facility] Comment on above: Order Comment: Speci men Type: BLOOD SPECIMEN Ordering Facility: [facility] Address: [address] [place] [address] Performed By: #### 5 8410-2 #### [facility] CLIA [id number] [address] Platelets (Bld) [#/Vol] 141 10*3/uL Low 150-400 [facility] Comment on above: Order Comment: Speci men Type: BLOOD SPECIMEN Ordering Facility: [facility] Address: [address] [place] [address] Performed By: #### 5 8410-2 #### [facility] CLIA [id number] [address] [place] [address] [place] RBC (Bld) [#/Vol] 2.20 10*6/uL Low 4.20-6.00 [facility] Comment on above: Order Comment: Speci men Type: BLOOD SPECIMEN Ordering Facility: [facility] Address: [address] [place] [address] Performed By: #### 5 8410-2 #### [facility] CLIA [id number] [address] [place] WBC (Bld) [#/Vol] 5.70 10*3/uL Normal 3.70-11.00 [facility] Comment on above: Order Comment: Speci men Type: BLOOD SPECIMEN Ordering Facility: [facility] Address: [address] [place] [address] Performed By: #### 5 8410-2 #### [facility] [facility] CLIA [id number] [address] CONFIRM BLOOD TYPEon 023 ABO O Normal [facility] Comment on above: Order Comment: Speci men Type: BLOOD SPECIMEN Ordering Facility: [facility] Address: [address] [place] [address] Performed By: #### C ONABO #### [facility] CLIA [id number] [address] Rh Nom (Bld) Positive Normal [facility] Comment on above: Order Comment: Speci men Type: BLOOD SPECIMEN Ordering Facility: [facility] Address: [address] [place] [address] Performed By: #### C ONABO #### [facility] CLIA [id number] [address] CONSULTon 01-06-2023 CONSULT HNO ID: [id number] Author: Michael Nick DPM Service: Podiatry Author Type: Physician Type: Consults Filed: 01/06/2023 9:11 PM Note Text: PODIATRY INITIAL CONSULT NOTE SERVICE DATE: 01/06/2023 SERVICE TIME: 8:54 PM REASON FOR CONSULT: Chronic wound dorsal left foot. PRIMARY CARE PHYSICIAN: Elida Borges Mr. Blank is a 82 year old male seen for a necrotic wound on the dorsal left foot. Patient reports the wound developed 2 months ago and has not improved despite wound care. Patient admitted after falling and injuring his left hip. He is status post insertion of a medullary jessy left femur DOS . PAST MEDICAL HISTORY Diagnosis Date CAD (coronary artery disease) History of GI bleed HTN (hypertension) Hyperlipidaemia Hypothyroidism PAD (peripheral artery disease) (HCC) UC (ulcerative colitis) (HCC) PAST SURGICAL HISTORY Procedure Laterality Date PAST SURGICAL HISTORY OF Right 1966 right hand PAST SURGICAL HISTORY OF Right 2004 right flank chronic inflammed tissue PAST SURGICAL HISTORY OF multiple skin bx--benign FAMILY HISTORY Problem Relation Age of Onset Colon Cancer Paternal Grandfather Breast Cancer Mother Social History Tobacco Use Smoking status: Former Substance Use Topics Alcohol use: Yes Drug use: No balsalazide (COLAZAL) 750 mg capsule, Take 2,250 mg by mouth three times daily., Disp: , Rfl: carvedilol (COREG) 12.5 mg tablet, Take 12.5 mg by mouth twice daily with meals., Disp: , Rfl: lisinopril (ZESTRIL) 20 mg tablet, Take 20 mg by mouth twice daily., Disp: , Rfl: ferrous sulfate 325 mg (65 mg iron) tablet, Take 325 mg by mouth daily with breakfast., Disp: , Rfl: AZATHIOPRINE (AZASAN ORAL), Take 50 mg by mouth once daily., Disp: , Rfl: atorvastatin (LIPITOR) 40 mg tablet, Take 40 mg by mouth once daily., Disp: , Rfl: ezetimibe (ZETIA) 10 mg tablet, Take 10 mg by mouth once daily., Disp: , Rfl: clopidogrel (PLAVIX) 75 mg tablet, Take 75 mg by mouth once daily., Disp: , Rfl: aspirin 325 mg tablet, Take 325 mg by mouth once daily., Disp: , Rfl: Zinc Gluconate 50 mg tablet, Take 50 mg by mouth three times daily., Disp: , Rfl: Current Facility-Administered Medications Medication Dose Route Frequency NaCl 0.9% iv flush bag 20 mL INTRAVENOUS PRN ondansetron 4 mg tab(s) (ZOFRAN) 4 mg ORAL q 6 H PRN Or ondansetron (PF) 4 mg injection (ZOFRAN) 4 mg INTRAVENOUS q 6 H PRN oxyCODONE IR 5-10 mg tab(s) (ROXICODONE) 5-10 mg ORAL q 6 H PRN acetaminophen 975 mg tab(s) (TYLENOL) 975 mg ORAL q 6 H pantoprazole 40 mg injection (PROTONIX) 40 mg INTRAVENOUS DAILY (6 AM) zinc oxide 20 % TOPICAL BID amiodarone 200 mg tab(s) (PACERONE) 200 mg ORAL DAILY atorvastatin 40 mg tab(s) (LIPITOR) 40 mg ORAL AT BEDTIME carvedilol 3.125 mg tab(s) (COREG) 3.125 mg ORAL BID w MEALS levothyroxine 75 mcg tab(s) (SYNTHROID) 75 mcg ORAL DAILY (6 AM) ergocalciferol (vitamin D2) 50,000 Units cap(s) (DRISDOL) 50,000 Units ORAL 1/WK ferrous sulfate 325 mg tab(s) 325 mg ORAL DAILY WITH BREAKFAST senna-docusate 8.6-50 mg 1 tablet (SENNA-S) 1 tablet ORAL BID Allergies As of Date: 01/03/2023 Allergen Noted Reaction AMLODIPINE 12/13/2014 Rash LOVASTATIN 12/13/2014 Hives Fully Assessed 01/03/2023 COMPLETE REVIEW OF SYSTEMS: GENERAL: No weight loss, malaise or fevers HEENT: Negative for frequent or significant headaches RESPIRATORY: Denies cough or shortness of breath. CARDIOVASCULAR: Denies chest pain. GI: No nausea, vomiting, or diarrhea MUSCULOSKELETAL: Next left leg. SKIN: Necrotic wound to the dorsal left foot. Objective PHYSICAL EXAM: Physical Exam Performed: General: Normotensive, in no acute distress. Head: Normocephalic, no lesions. Chest: Normal respirations. Heart: RR. Lower Extremities: VASCULAR EXAM:. Dorsalis pedis and posterior tibial pulses are palpable on the right and left foot. The temperature gradient is warm to cool on the right and left foot. Digital capillary fill time is 1 - 3 seconds on the right and left foot. Negative hair growth on the digits B/L. There is edema on left foot graded as + 1/4. NEUROLOGICAL EXAM:. Protective sensation to 5.07 monofilament is diminished to the right foot and left foot. DERMATOLOGICAL EXAM: A large V-shaped wound noted to the dorsal left midfoot. The wound measures 8 cm x 5 cm and is completely filled with devitalized subcutaneous tissue. Today patient consented to bedside excisional debridement of the left foot wound of all devitalized subcutaneous tissue, revealing wound depth of 1.5 cm and tunneling approximately 4 cm in apex is toward the ankle. The wound was copiously irrigated with hydrogen peroxide then packed with Mesalt. MUSCULOSKELETAL EXAM:. Muscle strength diminished for plantarflexion, dorsiflexion, inversion and eversion of the left foot and ankle. Range of motion of the 1st MTPJ, ankle and subtalar joints appear to be limited (more content not included)... Normal [facility] CONSULT PROGon 01-06-2023 CONSULT PROG HNO ID: [id number] Author: Carly Sinclair MD Service: Hospital Medicine Author Type: Physician Type: Consult Progress Note Filed: 01/06/2023 1:21 PM Note Text: DEPARTMENT OF HOSPITAL MEDICINE PROGRESS NOTE SERVICE DATE: 01/06/2023 Hospital Medicine/Primary Attending: , Carly Sinclair MD NIGHT AND WEEKEND COVERAGE: After 7pm please page [phone] SUBJECTIVE: resting in bed , no complaints Denies CP/SOB. Denies nausea/vomiting/diarrhea. OBJECTIVE: PHYSICAL EXAM: BP 149/57 Pulse 69 Temp (Src) 97.7 (Oral) Resp 16 Ht 5' 10 (1.78m) Wt 165 lb 5.5 oz (75.0kg) SpO2 96% BMI 23.72 kg/(m2). O2 Therapy: Room Air General: NAD, appears comfortable Resp: Clear to auscultation B/L, no wheeze/rhonchi, unlabored CV: RRR, Normal S1S2, No murmur/rub/gallop GI: soft, NT/ND, + BS Ext: no cyanosis/clubbing/edema Neuro: AANDO x 3, speech fluent MEDICATIONS: Current Facility-Administered Medications Medication Dose Route Frequency ferrous sulfate 325 mg tab(s) 325 mg ORAL DAILY WITH BREAKFAST ergocalciferol (vitamin D2) 50,000 Units cap(s) (DRISDOL) 50,000 Units ORAL 1/WK NaCl 0.9% iv flush bag 20 mL INTRAVENOUS PRN ondansetron 4 mg tab(s) (ZOFRAN) 4 mg ORAL q 6 H PRN Or ondansetron (PF) 4 mg injection (ZOFRAN) 4 mg INTRAVENOUS q 6 H PRN oxyCODONE IR 5-10 mg tab(s) (ROXICODONE) 5-10 mg ORAL q 6 H PRN acetaminophen 975 mg tab(s) (TYLENOL) 975 mg ORAL q 6 H pantoprazole 40 mg injection (PROTONIX) 40 mg INTRAVENOUS DAILY (6 AM) zinc oxide 20 % TOPICAL BID amiodarone 200 mg tab(s) (PACERONE) 200 mg ORAL DAILY atorvastatin 40 mg tab(s) (LIPITOR) 40 mg ORAL AT BEDTIME carvedilol 3.125 mg tab(s) (COREG) 3.125 mg ORAL BID w MEALS levothyroxine 75 mcg tab(s) (SYNTHROID) 75 mcg ORAL DAILY (6 AM) DATA: Diagnostic tests reviewed for today's visit: CBC, Coags, BMP, Mg, Phos Recent Labs 01/06/23 0100 01/05/23 0010 01/03/23 1630 01/03/23 1413 WBC 5.70 8.02 -- 8.44 HB 6.8* 7.5* -- 9.9* HCT 22.7* 24.0* -- 31.0* PLT 141* 181 -- 260 NA 134* 132* -- 135* K 4.4 5.3* 5.3* 5.3* CHLOR 103 101 -- 101 CO2 22 21* -- 23 BUN 40* 40* -- 38* CREAT 2.47* 2.27* -- 2.19* GLUC 117* 101* -- 83 CA 8.5 8.5 -- 9.3 CSF AND Dilantin Liver Function, Amylase, AND Lipase Cardiac Enzymes ABGs Problem List Head injury, acute, without loss of consciousness, sequela (POA: Yes) Stasis ulcer (HCC) (POA: Status not on file) Skin tear of left elbow without complication (POA: Status not on file) Noninfected skin tear of left leg (POA: Status not on file) Alteration in skin integrity due to moisture (POA: Status not on file) Coronary artery disease involving [place] coronary artery of [place] heart (POA: Status not on file) S/P CABG (coronary artery bypass graft) (POA: Status not on file) Atrial fibrillation (HCC) (POA: Status not on file) Primary hypertension (POA: Status not on file) Other hyperlipidemia (POA: Status not on file) COPD (chronic obstructive pulmonary disease) (HCC) (POA: Status not on file) Fall (POA: Status not on file) Malnutrition of moderate degree (HCC) (POA: Yes) HOSPITAL COURSE: Amaury Blank is a 82 year old male with #Left intertrochanteric fracture Management per Orthopedic #CAD stable without angina some exertional dyspnea reported -Patient off blood thinners due to frequent GI bleeding reportedly -on BB with holding parameters -lisinopril and diuretics on hold, will resume as appropriate -Cardiology follows #Left frontal subacute intraparenchymal hemorrhage -Neurosurgery and trauma following appreciate recs -Brain MRI no mass lesion underlying blood -follow up as outpatient in 2 weeks #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 today at baseline -avoid nephrotoxic meds -renal diet -monitor Renal function #Acute on chronic Anemia-stable improved from 2020, 1U RBC today #hyperkalemia-improved -would repeat K avoid meds that may increase -monitor on tele -would hold starr -stable , no indication of treatment <6 #Left lower extremity foot wound -wound care #Frequent falls -Recommend fall precautions, PT OT eval's prior to discharge, recommend SNF #Afib -patient on ameo/coreg -not on anticoag due to falls and gib hx VTE Prophylaxis: As per primary team Disposition: SNF when medically ready Plan of care discussed with: Patient, RN SIGNATURE: Carly Sinclair MD PATIENT NAME: Amaury Blank PAGER/CONTACT #: rosanna team color Normal [facility] THERAPY NTon 01-06-2023 THERAPY NT HNO ID: [id number] Author: Dvo Newton PTA Service: Physical Therapy Author Type: Barkeeper Type: Therapy (PT/OT/Speech/Resp) Filed: 01/06/2023 2:49 PM Note Text: Attestation signed by Samantha Hoffmann PT at 01/06/2023 3:37 PM I reviewed and agree with the documentation corresponding to this therapy visit. SIGNATURE: Samantha Hoffmann PT DATE: January 06, 2023 TIME: 3:37 PM Physical Therapy Treatment SERVICE DATE: 01/06/2023 SERVICE TIME: 1351 to 1410 ROOM: [id number] Recommended Discharge Disposition: Subacute/SNF Recommended Discharge Disposition Due to: Patient requires daily, facility-based rehabilitation from at least one discipline due to:, ADL impairment resulting in caregiver dependence, decline in functional status requiring daily skilled care, ongoing intervention of multiple therapy disciplines PT 6 Clicks Score: 11 Patient continues to require significant assist with all mobility and was unable to progress overall gait tolerance due to refusal to try despite encouragement and education. Educated patient on HEP to perform and he was amendable. Continue to recommend SNF due to poor overall activity tolerance and need for significant physical assist. Precautions/Activity Restrictions: Fall Risk, Bed/Chair Alarm, Lines/Tubes/Drains, Weight Bearing Restrictions Extremity With Weight Bearing Restricted: Left Lower Extremity Left Lower Extremity Weight Bearing Status: WBAT Current Hospital Course: underwent L femur CMN repair 01/04. L frontal subacute intraparenchymal hemorrhage. Dressing to distal L LE wound. Reason for Hospital Admission: fall, head injury, L femur fracture Relevant Past Medical History: CAD s/p CABG, A-fib, HTN, HLD, COPD, Falls, Skin tears Response to Therapy Interventions: Good Participation in Activities, Pain, Requires Encouragement to Complete Activities Continued Skilled Needs Due to: Functional Mobility/Skill Impairments, Safety Concerns Physical Therapy Problem List: Education Deficit, Edema, Pain, Safety Deficits, Impaired Self Care, Decreased Activity Tolerance, Decreased Range Of Motion, Decreased Strength, Functional Mobility Impairment, Balance Impaired Treatment Interventions: Education, Self Care / Home Management, Energy Conservation Training, Joint Mobility, Strengthening, Functional Mobility Training, Balance Training, Neuromuscular Re-education Plan for Next Visit: Bed Mobility, Gait Training, Sit to Stand Transfers, Standing Balance, Standing Tolerance, Walker Training Home Environment Patient Lives With: Self/Alone ( moved to Assisted Living 2 weeks prior) Assistance Available: None (children live out of state) Entry To Home: Stairs Number Of Stairs To Bed/Bath: flight ([place]anch home [place], pt uses lower level living room/laundry, upper level bedroom/bathroom/kitchen) Stairs to Bed/Bath with: Unilateral Rail Tub/Shower Type: walk in shower that had used and tub/shower that he had used Laundry: in basement, pt normally completes Equipment Owned: Walker- Wheeled, Rollator, Grab Bars- Shower, Shower Chair Prior Functional Level: Within Functional Limits, History of Falls Prior Functional Level Comments: At baseline pt is mod I for mobility AND self-care, using a rollator (has one on each level of the home). (+) drives. Doing his own groceries, meals, laundry, cleaning. Pt does report hx of multiple falls. recently transitioned into AL Patient Report: Patient alert and agreeable to treatment, flat CURRENT FUNCTIONAL STATUS: Most recent performance is in bold. Text not bolded was performed during a previous therapy session. Current Functional Mobility Assist Level Additional Information Rolling Supine to Sit Moderate Assistance, Additional Information Increased time required, requests assist for R LE as well as L LE and required reminder that R LE is uninjured. Assist required for trunk mobility to upright Sit to Supine Scooting Minimal Assistance, Additional Information Sit to Stand Moderate Assistance, Additional Information Cueing provided for safe hand/foot placement with FWW. Stable once upright, encouraged to increase WB through L LE as tolerated Stand to Sit Maximal Assistance, Additional Information Patient attempts to prematurely sit despite cueing to improve alignment with chair, assist provided to prevent LOB Bed to Chair Moderate Assistance, Additional Information Bed To Chair Transfer Type: Stepping Bed To Chair Transfer Equipment: Wheeled Walker, Gait Belt Cueing provided for improved sequencing and alignment Toilet/Commode Gait Moderate Assistance, Additional Information Gait Device: Wheeled Walker Gait Distance (feet): 1 x 4 feet patient struggles to advance L LE. Req (more content not included)... Normal [facility] TYPE + SCREENon 01-06-2023 ABO O Normal [facility] Comment on above: Order Comment: Speci men Type: BLOOD SPECIMEN Ordering Facility: [facility] Address: [address] [place] [address] Performed By: #### T SCR #### [facility] CLIA [id number] [address] HISTORICAL AB SCR STATUS Negative Normal [facility] Comment on above: Order Comment: Speci men Type: BLOOD SPECIMEN Ordering Facility: [facility] Address: [address] [place] [address] Performed By: #### T SCR #### [facility] CLIA [id number] [address] Rh Nom (Bld) Positive Normal [facility] Comment on above: Order Comment: Speci men Type: BLOOD SPECIMEN Ordering Facility: [facility] Address: [address] [place] [address] Performed By: #### T SCR #### [facility] CLIA [id number] [address] TYPE AND SCREEN EXPIRATION 01/09/2023 23:59 Normal [facility] Comment on above: Order Comment: Speci men Type: BLOOD SPECIMEN Ordering Facility: [facility] Address: [address] [place] [address] Performed By: #### T SCR #### [facility] CLIA [id number] [address] ANES POSTPROC EVALon 023 ANES POSTPROC EVAL HNO ID: [id number] Author: Bert Bellamy MD Service: Anesthesiology Author Type: Physician Type: Anesthesia Postprocedure Evaluation Filed: 01/05/2023 9:07 AM Note Text: POST ANESTHESIA EVALUATION NOTE : 1940 Procedure Summary Date: 01/04/23 Room / Location: [facility] OR / [place] OR Anesthesia Start: 1446 Anesthesia Stop: 162 Procedure: INSERTION NAIL / JESSY INTERMEDULLARY FEMUR WITH C-ARM (Left: Hip) Diagnosis: Intertrochanteric fracture of left hip (HCC) (Intertrochanteric fracture of left hip (HCC) [S72.142A]) Surgeons: Errol Rod MD Responsible Provider: Bert Bellamy MD Anesthesia Type: general ASA Status: 3 Anesthesia Type: general Airway Type: LMA Last Vitals Vitals Value Taken Time BP 134/61 01/04/231914 Temp 36.1 ?C (97 ?F) 01/04/231814 HR SpO2 74 01/04/231914 Resp 14 01/04/231914 SpO2 99 % 01/04/231914 Vitals shown include unvalidated device data. Post Anesthesia Patient Status Patient Evaluation: PACU. PACU/ICU Patient Condition: stable. Anticipated Disposition: inpatient floor planned admission. Neurological Status: aware and responsive. Pulmonary Status: breathing comfortably on supplemental oxygen Airway Control: returned to baseline unsupported. Cardiovascular Status: stable. Pain Management: clinically adequate - multimodal analgesia pain management approach Postoperative Hydration: acceptable. Intraoperative Events: no significant anesthesia events Post Operative Nausea/Vomiting Status: no significant post operative nausea or vomiting Recommendation: continue current plan of care and further care per PACU/ICU/floor team. Other Remarks: Fascia iliaca block placed in pacu. Anesthesia Observations No Documentation SIGNATURE: Bert Bellamy MD PATIENT NAME: Amaury Blank DATE: January 05, 2023 TIME: 9:07 AM CSN: [id number] Normal [facility] Basic metabolic 2000 panelon 01-05-2023 Anion gap [Moles/Vol] 10 mmol/L Normal 9-18 [facility] Comment on above: Order Comment: Speci akil Type: BLOOD SPECIMEN Ordering Facility: [facility] Address: [address] [place], [place] [id number] Performed By: #### 5 8410-2 #### [facility] CLIA [id number] 1 [place] [address] [place] Calcium [Mass/Vol] 8.5 mg/dL Normal 8.5-10.2 [facility] Comment on above: Order Comment: Migel barnard Type: BLOOD SPECIMEN Ordering Facility: [facility] Address: [address] [place], [place] [id number] Performed By: #### 5 8410-2 #### [facility] CLIA [id number] [address] [facility] Chloride [Moles/Vol] 101 mmol/L Normal 97-105 [facility] Comment on above: Order Comment: Speci men Type: BLOOD SPECIMEN Ordering Facility: [facility] Address: [address] [place] [address] Performed By: #### 5 8410-2 #### [facility] CLIA [id number] [address] [place] CO2 [Moles/Vol] 21 mmol/L Low 22-30 [facility] Comment on above: Order Comment: Speci men Type: BLOOD SPECIMEN Ordering Facility: [facility] Address: [address] [place] [address] Performed By: #### 5 8410-2 #### [facility] CLIA [id number] [address] Creatinine [Mass/Vol] 2.27 mg/dL High 0.73-1.22 [facility] Comment on above: Order Comment: Speci men Type: BLOOD SPECIMEN Ordering Facility: [facility] Address: [address] [place] [address] Performed By: #### 5 8410-2 #### [facility] CLIA [id number] [address] ESTIMATED GLOMERULAR FILTRATION RATE 28 mL/min/1.73m??? Low >=60 [facility] Comment on above: Order Comment: Speci men Type: BLOOD SPECIMEN Ordering Facility: [facility] Address: [address] [place] [address] Result Comment: Lindsay mated Glomerular Filtration Rate (eGFR) is calculated using the 2020 CKD-EPI creatinine equation. This equation utilizes serum creatinine, sex, and age as parameters. The creatinine assay has traceable calibration to isotope dilution-mass spectrometry. Refer to KDIGO guidelines for clinical interpretation. In patients with unstable renal function, e.g. those with acute kidney injury, the eGFR may not accurately reflect actual GFR. Performed By: #### 5 8410-2 #### [facility] CLIA [id number] [address] [place] Glucose [Mass/Vol] 101 mg/dL High 74-99 [facility] Comment on above: Order Comment: Migel barnard Type: BLOOD SPECIMEN Ordering Facility: [facility] Address: [address] [place] [address] Result Comment: The [place] Diabetes Association (ADA) provides guidance for cutoff values for fasting glucose and random glucose. The ADA defines fasting as no caloric intake for at least 8 hours. Fasting plasma glucose results between 100 to 125 mg/dL indicate increased risk for diabetes (prediabetes). Fasting plasma glucose results greater than or equal to 126 mg/dL meet the criteria for diagnosis of diabetes. In the absence of unequivocal hyperglycemia, results should be confirmed by repeat testing. In a patient with classic symptoms of hyperglycemia or hyperglycemic crisis, random plasma glucose results greater than or equal to 200 mg/dL meet the criteria for diagnosis of diabetes. Reference: Standards of Medical Care in Diabetes 2016, [place] [employer] Association. Diabetes Care. 2016.39(Suppl 1). Performed By: #### 5 8410-2 #### [facility] CLIA [id number] [address] [place] Potassium [Moles/Vol] 5.3 mmol/L High 3.7-5.1 [facility] Comment on above: Order Comment: Migel barnard Type: BLOOD SPECIMEN Ordering Facility: [facility] Address: [address] [place] [address] Performed By: #### 5 8410-2 #### [facility] CLIA [id number] 1 [place] [address] [place] Sodium [Moles/Vol] 132 mmol/L Low 136-144 [facility] Comment on above: Order Comment: Migel barnard Type: BLOOD SPECIMEN Ordering Facility: [facility] Address: [address] [place] [address] Performed By: #### 5 8410-2 #### [facility] CLIA [id number] [address] [place] Urea nitrogen [Mass/Vol] 40 mg/dL High 9-24 [facility] Comment on above: Order Comment: Speci men Type: BLOOD SPECIMEN Ordering Facility: [facility] Address: [address] [place] [address] Performed By: #### 5 8410-2 #### [facility] CLIA [id number] [address] CBC panel Auto (Bld)on 01-05 Erythrocyte distribution width (RBC) [Ratio] 14.5 % Normal 11.5-15.0 [facility] Comment on above: Order Comment: Speci men Type: BLOOD SPECIMEN Ordering Facility: [facility] Address: [address] [place] [address] Performed By: #### 5 8410-2 #### [facility] CLIA [id number] [address] Hematocrit (Bld) [Volume fraction] 24.0 % Low 39.0-51.0 [facility] Comment on above: Order Comment: Speci men Type: BLOOD SPECIMEN Ordering Facility: [facility] Address: [address] [place] [address] Performed By: #### 5 8410-2 #### [facility] CLIA [id number] [address] Hemoglobin (Bld) [Mass/Vol] 7.5 g/dL Low 13.0-17.0 [facility] Comment on above: Order Comment: Speci men Type: BLOOD SPECIMEN Ordering Facility: [facility] Address: [address] [place] [address] Performed By: #### 5 8410-2 #### [facility] CLIA [id number] 1 [address] [address] MCH (RBC) [Entitic mass] 31.8 pg Normal 26.0-34.0 [facility] Comment on above: Order Comment: Speci men Type: BLOOD SPECIMEN Ordering Facility: [facility] Address: [address] [place] [address] Performed By: #### 5 8410-2 #### [facility] CLIA [id number] [address] MCHC (RBC) [Mass/Vol] 31.3 g/dL Normal 30.5-36.0 [facility] Comment on above: Order Comment: Speci men Type: BLOOD SPECIMEN Ordering Facility: [facility] Address: [address] [place] [address] Performed By: #### 5 8410-2 #### [facility] CLIA [id number] [address] MCV (RBC) [Entitic vol] 101.7 fL High 80.0-100.0 [facility] Comment on above: Order Comment: Speci men Type: BLOOD SPECIMEN Ordering Facility: [facility] Address: [address] [place] [address] Performed By: #### 5 8410-2 #### [facility] CLIA [id number] [address] Nucleated RBC (Bld) [#/Vol] 10*3/uL Normal <0.01 [facility] Comment on above: Order Comment: Speci men Type: BLOOD SPECIMEN Ordering Facility: [facility] Address: [address] [place] [address] Performed By: #### 5 8410-2 #### [facility] CLIA [id number] [address] Platelet mean volume (Bld) [Entitic vol] 10.0 fL Normal 9.0-12.7 [facility] Comment on above: Order Comment: Speci men Type: BLOOD SPECIMEN Ordering Facility: [facility] Address: [address] [address] Performed By: #### 5 8410-2 #### [facility] CLIA [id number] [address] OF [place] Platelets (Bld) [#/Vol] 181 10*3/uL Normal 150-400 [facility] Comment on above: Order Comment: Speci men Type: BLOOD SPECIMEN Ordering Facility: [facility] Address: [address] [place] [address] Performed By: #### 5 8410-2 #### [facility] CLIA [id number] [address] RBC (Bld) [#/Vol] 2.36 10*6/uL Low 4.20-6.00 [facility] Comment on above: Order Comment: Speci men Type: BLOOD SPECIMEN Ordering Facility: [facility] Address: [address] [place] [address] Performed By: #### 5 8410-2 #### [facility] CLIA [id number] [address] WBC (Bld) [#/Vol] 8.02 10*3/uL Normal 3.70-11.00 [facility] Comment on above: Order Comment: Speci men Type: BLOOD SPECIMEN Ordering Facility: [facility] Address: [address] [place] [address] Performed By: #### 5 8410-2 #### [facility] CLIA [id number] [address] CONSULT PROGon 01-05-2023 CONSULT PROG HNO ID: [id number] Author: Carly Sinclair MD Service: Hospital Medicine Author Type: Physician Type: Consult Progress Note Filed: 01/05/2023 2:52 PM Note Text: DEPARTMENT OF HOSPITAL MEDICINE PROGRESS NOTE SERVICE DATE: 01/05/2023 Hospital Medicine/Primary Attending: Carly Ramirez MD NIGHT AND WEEKEND COVERAGE: After 7pm please page [phone] SUBJECTIVE: resting in bed , no complaints Denies CP/SOB. Denies nausea/vomiting/diarrhea. OBJECTIVE: PHYSICAL EXAM: BP 100/49 Pulse 67 Temp (Src) 97.7 (Oral) Resp 18 Ht 5' 10 (1.78m) Wt 165 lb 5.5 oz (75.0kg) SpO2 95% BMI 23.72 kg/(m2). O2 Therapy: Room Air General: NAD, appears comfortable Resp: Clear to auscultation B/L, no wheeze/rhonchi, unlabored CV: RRR, Normal S1S2, No murmur/rub/gallop GI: soft, NT/ND, + BS Ext: no cyanosis/clubbing/edema Neuro: AANDO x 3, speech fluent MEDICATIONS: Current Facility-Administered Medications Medication Dose Route Frequency NaCl 0.9% iv infusion 75 mL/hr INTRAVENOUS CONTINUOUS ergocalciferol (vitamin D2) 50,000 Units cap(s) (DRISDOL) 50,000 Units ORAL 1/WK NaCl 0.9% iv flush bag 20 mL INTRAVENOUS PRN ondansetron 4 mg tab(s) (ZOFRAN) 4 mg ORAL q 6 H PRN Or ondansetron (PF) 4 mg injection (ZOFRAN) 4 mg INTRAVENOUS q 6 H PRN morphine 2 mg injection 2 mg INTRAVENOUS q 3 H PRN oxyCODONE IR 5-10 mg tab(s) (ROXICODONE) 5-10 mg ORAL q 6 H PRN acetaminophen 975 mg tab(s) (TYLENOL) 975 mg ORAL q 6 H pantoprazole 40 mg injection (PROTONIX) 40 mg INTRAVENOUS DAILY (6 AM) zinc oxide 20 % TOPICAL BID amiodarone 200 mg tab(s) (PACERONE) 200 mg ORAL DAILY atorvastatin 40 mg tab(s) (LIPITOR) 40 mg ORAL AT BEDTIME carvedilol 3.125 mg tab(s) (COREG) 3.125 mg ORAL BID w MEALS levothyroxine 75 mcg tab(s) (SYNTHROID) 75 mcg ORAL DAILY (6 AM) DATA: Diagnostic tests reviewed for today's visit: CBC, Coags, BMP, Mg, Phos Recent Labs 01/05/23 0010 01/03/23 1630 01/03/23 1413 01/03/23 1121 WBC 8.02 -- 8.44 -- HB 7.5* -- 9.9* -- HCT 24.0* -- 31.0* -- PLT 181 -- 260 -- INR -- -- -- 1.0 APTT -- -- -- 27.4 NA 132* -- 135* -- K 5.3* 5.3* 5.3* -- CHLOR 101 -- 101 -- CO2 21* -- 23 -- BUN 40* -- 38* -- CREAT 2.27* -- 2.19* -- GLUC 101* -- 83 -- CA 8.5 -- 9.3 -- CSF AND Dilantin Liver Function, Amylase, AND Lipase Cardiac Enzymes ABGs Problem List Head injury, acute, without loss of consciousness, sequela (POA: Yes) Stasis ulcer (HCC) (POA: Status not on file) Skin tear of left elbow without complication (POA: Status not on file) Noninfected skin tear of left leg (POA: Status not on file) Alteration in skin integrity due to moisture (POA: Status not on file) Coronary artery disease involving [place] coronary artery of [place] heart (POA: Status not on file) S/P CABG (coronary artery bypass graft) (POA: Status not on file) Atrial fibrillation (HCC) (POA: Status not on file) Primary hypertension (POA: Status not on file) Other hyperlipidemia (POA: Status not on file) COPD (chronic obstructive pulmonary disease) (HCC) (POA: Status not on file) Fall (POA: Status not on file) HOSPITAL COURSE: Amaury Blank is a 82 year old male with #Left intertrochanteric fracture Management per Orthopedic #CAD stable without angina some exertional dyspnea reported -Patient off blood thinners due to frequent GI bleeding reportedly -on BB with holding parameters -lisinopril and diuretics on hold -Cardiology follows #Left frontal subacute intraparenchymal hemorrhage -Neurosurgery and trauma following appreciate recs -Brain MRI pending #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 today at baseline -avoid nephrotoxic meds -renal diet -monitor Renal function #Anemia-stable improved from 2020 #hyperkalemia-slight -would repeat K avoid meds that may increase -monitor on tele -would hold starr if still taking -stable , no indication of treatment <6 -gentle hydration for now #Left lower extremity foot wound -wound care/podiatry consult #Frequent falls -Recommend fall precautions, PT OT eval's prior to discharge, recommend SNF #Afib -patient on ameo/coreg -not on anticoag due to falls and gib hx VTE Prophylaxis: As per primary team Disposition: SNF when medically ready Plan of care discussed with: Patient, RN SIGNATURE: Carly Sinclair MD PATIENT NAME: Amaury Blank PAGER/CONTACT #: sound team color Normal [facility] MRI BRAIN WO/W IVCONon 01-05 MRI BRAIN WO/W IVCON * * *Final Report* * * DATE OF EXAM: Jan 05 2023 3:15PM [facility] Sveta5 - MRI BRAIN WO/W IVCON / PROCEDURE REASON: Cerebral hemorrhage suspected * * * * Physician Interpretation * * * * EXAMINATION: MRI BRAIN WO/W IVCON HISTORY: Cerebral hemorrhage suspected TECHNIQUE: Routine brain MRI protocol without and with contrast including diffusion and gradient echo images. MQ: [id number] Contrast: 15 mL Dotarem IV COMPARISON: CT brain 01/03/2023 RESULT: Acute Change: There is no evidence of restricted diffusion to suggest an acute infarct. Hemorrhage: There is a T1/T2 hyperintense intraparenchymal hematoma at the left frontal pole which measures 1.3 x 1.1 x 1.3 cm (AP by transverse by craniocaudal). There is a small amount of surrounding vasogenic edema. There is no enhancement within the lesion. There are a few other scattered punctate foci of susceptibility artifact in the bilateral cerebral hemispheres. Some of these are peripherally distributed, particularly in the bilateral occipital lobes, and could relate to cerebral amyloid angiopathy in the right clinical setting. Mass Lesion/ Mass Effect: No evidence of an enhancing intracranial mass or extra-axial fluid collection. No abnormal parenchymal or leptomeningeal enhancement is noted following contrast administration. Chronic Change: Scattered patchy areas of increased T2 and FLAIR signal are present in the supratentorial white matter which is a nonspecific finding but likely represents mild chronic microvascular ischemia. Parenchyma: There is mild generalized parenchymal volume loss. Ventricles: Ventriculomegaly corresponds to the degree of parenchymal volume loss. Skull Base: Hypothalamic and pituitary region are grossly normal. Craniocervical junction is normal. There is abnormal marrow signal throughout the calvarium, most pronounced on the ADC images with accompanying heterogeneity on the axial T1 postcontrast images. Vasculature: Major intracranial arterial structures, and dural venous sinuses show typical flow void, suggesting patency by spin echo criteria. Other: Bilateral lens replacements. Orbits and globes are otherwise unremarkable. Mastoid air cells are clear. Visualized extracranial soft tissues are within normal limits. IMPRESSION: Intraparenchymal hematoma within the left frontal pole with signal characteristics suggesting late subacute chronicity. No enhancement to suggest underlying lesion. Additional scattered punctate foci of susceptibility artifact, some of which are in a peripheral distribution, raise the possibility of cerebral amyloid angiopathy in the right clinical setting. Diffuse abnormal marrow signal in the calvarium may relate to physiologic marrow reconversion given the patient's anemia versus other underlying infiltrative marrow process, though there is no history of systemic disease to suggest the latter within the medical record. [employer] Official: ANABEL Transcribe Date/Time: Jan 05 2023 8:48P Dictated by : CHARO LACEY MD This examination was interpreted and the report reviewed and electronically signed by: CHARO LACEY MD on Jan 05 2023 9:04PM EST [id number] Normal [facility] NUTRITIONon 01-05-2023 NUTRITION HNO ID: [id number] Author: Grazyna Ray RD Service: Nutrition Therapy Author Type: Registered Dietitian Type: Nutrition Filed: 01/05/2023 4:35 PM Note Text: NUTRITION THERAPY INITIAL ASSESSMENT SERVICE DATE: 01/05/2023 SERVICE TIME: 12:42 PM Nutrition Assessment: Recommended Malnutrition Diagnosis: Moderate Protein-Calorie Malnutrition In the context of: Social/Environmental Circumstance Based on: Subcutaneous Fat Loss, Insufficient Energy Intake, Muscle Loss Nutrition Diagnosis: Problem: Suboptimal protein/energy intake Related to: Inability to consume sufficient nutrients As evidenced by: Patient/family self-report Estimated kilocalorie needs: [id number] Calorie Calculation Method: 25-30 kcals/kg Estimated protein needs (grams): 75-90; increased needs for healing, but monitor renal function Grams protein determined by: 1.0 - 1.2 g/kg Care Plan: Continue current diet Supplements: Boost Glucose Control (1x/d) Monitor and Evaluation: Meet greater than 75% of estimated needs, Monitor bowel function, Monitor fluid/electrolyte balance, Monitor labs, I/Os, vital signs, weight HPI: 82 yo male admitted after a fall. POD#1 s/p L CMN. Intake History: Nutrition Intake Prior to Admission: Less than 75% estimated energy needs greater than or equal to 1 month (Eats 2 meals per day + 1 supplement every other day) Current Nutrition Intake: Less than 75% estimated energy needs Current Intake Over time: (2 day LOS) Diet Orders (From admission, onward) Start Ordered 01/05/23 0800 DIET RENAL START NOW Question: Renal Answer: 2400 MG K / 2400 MG NA 01/05/23 0748 Anthropometrics: Height: 177.8 cm (5' 10) Weight: 75 kg (165 lb 5.5 oz) Dosing Weight: 75 kg (165 lb 5.5 oz) Usual Weight: 80.7 kg (178 lb) 1.5 months ago per patient Usual Weight Obtained From: Patient Body mass index is 23.72 kg/m?. Normal Weight change percentage over time: Poor weight hx in EMR. Patient reporting ! 13 lb loss x 1.5 months but unable to confirm in chart. Continue to monitor Physical Exam: Subcutaneous fat loss: Mild Muscle loss: Mild Potential micronutrient deficiency: No deficiency identified Edema/Ascites: No edema GI Symptoms: None Potential Signs of Inflammation: Acute post-operative, Hyperglycemia, Chronic condition CAD MNT Billing: $ Initial Assessment: 1-15 minutes SIGNATURE: Grazyna Ray RD PATIENT NAME: Amaury Blank DATE: January 05, 2023 TIME: 12:42 PM Normal [facility] THERAPY NTon 01-05-2023 THERAPY NT HNO ID: [id number] Author: Kimberly Corey OTR/L Service: Occupational Therapy Author Type: Occupational Therapist Type: Therapy (PT/OT/Speech/Resp) Filed: 01/05/2023 1:41 PM Note Text: Occupational Therapy Evaluation SERVICE DATE: 01/05/2023 SERVICE TIME: 1030 to 1058 ROOM: [place] [address] Recommended Discharge Disposition: Subacute/SNF Recommended Discharge Disposition Comments: pt highly independent and now with ortho injury/surgery requring significant help with ADLs/mobility Recommended Discharge Disposition Due to: Patient requires daily, facility-based rehabilitation from at least one discipline due to:, decline in functional status requiring daily skilled care, ongoing intervention of multiple therapy disciplines OT 6 Clicks Score: 14 Facilitated bed mobility and sit to stand, and transfer to chair with 2 person assist. Patient has retropulsive loss of balance backwards and sits unexpectedly into the chair. Educated on maintaining safety and letting therapist know what is going on so that way he ensure safe transfers in the future. Facilitated oral hygiene facial hygiene and hair grooming while sitting unsupported in bedside chair. Communicated assist of 2 to chair or bedside commode on whiteboard for staff. Educated patient on using bedside commode that is present in patient's bathroom for toileting at this time with assistance. In chair with chair alarm activated at end of session. Precautions/Activity Restrictions: Fall Risk, Bed/Chair Alarm, Lines/Tubes/Drains, Weight Bearing Restrictions Extremity With Weight Bearing Restricted: Left Lower Extremity Left Lower Extremity Weight Bearing Status: WBAT Current Hospital Course: underwent L femur CMN repair 01/04. L frontal subacute intraparenchymal hemorrhage. Dressing to distal L LE wound. Reason for Hospital Admission: fall, head injury, L femur fracture Relevant Past Medical History: CAD s/p CABG, A-fib, HTN, HLD, COPD, Falls, Skin tears Response to Therapy Interventions: Good Participation in Activities, Improved Tolerance for Activity, Requires Additional Time to Complete Activities, Slow Progression with ADLs/IADLs Continued Skilled Needs Due to: Functional Impairment, Safety Concerns Occupational Therapy Problem List: Education Deficit, Safety Deficits, Impaired Self Care, Decreased Activity Tolerance, Decreased Strength, Functional Mobility Impairment, Balance Impaired Cognition/Communication Deficits Responsiveness: Alert, Awake Follows Commands: 2-step Commands Executive Function Deficits: Safety Awareness, Problem Solving, Insight to Deficits, Judgement Judgement Deficit: Minimal impairment Insight to Deficits: Moderate impairment Problem Solving Deficit: Moderate impairment Safety Awareness Deficit: Moderate impairment Cognitive Clinical Tests and Screens: 4AT Screening 4AT Screening Assess Alertness: Your observation to asses for excessive drowsiness or agitation. If asleep, attempt to wake with speech or gentle touch on shoulder. You may ask the patient to state their name and address to assist rating.: Normal (fully alert, but not agitated, throughout assessment) Assess orientation: Ask patient age, date of , current year, and current location: No mistakes Asess Attention: Ask patient to tell me the months of the year backwards order, starting with May: Able to state 7+ months correctly Evidence of acute changes or fluctuating mental status (changes in memory, alertness) or behavior (paranoia, hallucinations) in last 2 weeks: No 4AT Score: 0 Delirium Positive/Negative: Negative Treatment Interventions: Education, Self Care/Home Management, Functional Mobility Training, Strengthening, Balance Training Home Environment Patient Lives With: Self/Alone ( moved to Assisted Living 2 weeks prior) Assistance Available: None (children live out of state) Entry To Home: Stairs Number Of Stairs To Bed/Bath: flight ([place]anch home [place], pt uses lower level living room/laundry, upper level bedroom/bathroom/kitchen) Stairs to Bed/Bath with: Unilateral Rail Tub/Shower Type: walk in shower that had used and tub/shower that he had used Laundry: in basement, pt normally completes Equipment Owned: Walker- Wheeled, Rollator, Grab Bars- Shower, Shower Chair Prior Functional Level: Within Functional Limits, History of Falls Prior Functional Level Comments: At baseline pt is mod I for mobility AND self-care, using a rollator (has one on each level of the home). (+) drives. Doing his own groceries, meals, laundry, cleaning. Pt does report hx of multiple falls. 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 Normal [facility] THERAPY NT HNO ID: [id number] Author: Hannah Fortune, PT Service: Physical Therapy Author Type: Physical Therapist Type: Therapy (PT/OT/Speech/Resp) Filed: 01/05/2023 1:02 PM Note Text: Physical Therapy Evaluation SERVICE DATE: 01/05/2023 SERVICE TIME: 1012 to 1035 ROOM: [place] [address] Recommended Discharge Disposition: Subacute/SNF Recommended Discharge Disposition Due to: Patient requires daily, facility-based rehabilitation from at least one discipline due to:, ADL impairment resulting in caregiver dependence, decline in functional status requiring daily skilled care, ongoing intervention of multiple therapy disciplines PT 6 Clicks Score: 11 Precautions/Activity Restrictions: Fall Risk, Bed/Chair Alarm, Lines/Tubes/Drains, Weight Bearing Restrictions Extremity With Weight Bearing Restricted: Left Lower Extremity Left Lower Extremity Weight Bearing Status: WBAT Current Hospital Course: underwent L femur CMN repair 01/04. L frontal subacute intraparenchymal hemorrhage. Dressing to distal L LE wound. Reason for Hospital Admission: fall, head injury, L femur fracture Relevant Past Medical History: CAD s/p CABG, A-fib, HTN, HLD, COPD, Falls, Skin tears Response to Therapy Interventions: Good Participation in Activities, Pain Continued Skilled Needs Due to: Functional Mobility/Skill Impairments, Safety Concerns Physical Therapy Problem List: Education Deficit, Edema, Pain, Safety Deficits, Impaired Self Care, Decreased Activity Tolerance, Decreased Range Of Motion, Decreased Strength, Functional Mobility Impairment, Balance Impaired Treatment Interventions: Education, Self Care / Home Management, Energy Conservation Training, Joint Mobility, Strengthening, Functional Mobility Training, Balance Training, Neuromuscular Re-education Home Environment Patient Lives With: Self/Alone ( moved to Assisted Living 2 weeks prior) Assistance Available: None (children live out of state) Entry To Home: Stairs Number Of Stairs To Bed/Bath: flight (ranch home [place] on a [place]side, pt uses lower level living room/laundry, upper level bedroom/bathroom/kitchen) Stairs to Bed/Bath with: Unilateral Rail Laundry: in basement, pt normally completes Equipment Owned: Walker- Wheeled, Rollator Prior Functional Level: Within Functional Limits, History of Falls Prior Functional Level Comments: At baseline pt is mod I for mobility AND self-care, using a rollator (has one on each level of the home). (+) drives. Doing his own groceries, meals, laundry, cleaning. Pt does report hx of multiple falls. Patient Report: L hip sore, but wants to get moving Range of Motion: ROM Limitation Comments ROM Limitation Comments: pain-limited L LE, ankle DF to neutral only, hip AND knee approaching 90 for sitting Strength: Strength Limitation Comments Strength Limitation Comments: grossly weak LEs, assist needed for L LE movements in bed, R knee ext 3+/5 Vital Signs Pulse: 65 SpO2: 97 % O2 Therapy: Room Air CURRENT FUNCTIONAL STATUS: Most recent performance Current Functional Mobility Assist Level Additional Information Rolling Supine to Sit Moderate Assistance, Additional Information (x 2) cues for technique, sequence, breathing with exertion Sit to Supine Scooting Minimal Assistance, Additional Information cues for hand AND foot placement, weight-shifting Sit to Stand Moderate Assistance, Additional Information cues for transfer safety, hand placement, attn to upright posture / forward gaze as francesca with initial standing balance with walker Stand to Sit Maximal Assistance, Additional Information (+) retro LOB, needing max assist to lower to chair; cues for hand placement Bed to Chair Toilet/Commode Gait Moderate Assistance, Additional Information Gait Device: Wheeled Walker Gait Distance (feet): 3' x 1 [id number] cues for walker safety, step-to pattern to help unweight painful L LE, anterior weight-shifting through UEs on device, (+) retro LOB Stairs Curb Step Car Transfer Blank denney indicate activity not attempted General Deviations/Observations: Antalgic gait, Difficulty changing direction/turning, Improper distancing from assistive device, Loss of Balance, Shuffling Gait Balance: Static Sitting, Static Standing, Dynamic Standing Static Sitting Balance: Good Patient able to maintain balance without handhold support, limited postural sway Static Standing Balance: Fair Patient able to maintain balance with handhold support, may require occasional minimal assistance Dynamic Standing Balance: Poor Patient unable to accept challenge or move without loss of balance -HLM: 5: Standing (1 or more minutes) Learning/Educational Needs: Discharge Plan, Functional Activities/Mobility, Rehabilitation Techniques and Procedures, Safety Goals for Plan of Care: Patient/Caregiver Goals: Walk Able to Perform HEP with: Set Up Transfer Supine to/from Sit with: Minimal Assistance (more content not included)... Normal [facility] 25(OH)D3 SerPl-ncon 2022 25-hydroxyvitamin D3 [Mass/Vol] 13.8 ng/mL Low >=30.0 [facility] Comment on above: Order Comment: Speci men Type: BLOOD SPECIMEN Ordering Facility: [facility] Address: [address] [place] [id number] Result Comment: Clas sification of 25 [place] Vitamin D status: Deficiency: <= 20.0 ng/ml. Insufficiency: 21.0-29.0 ng/ml. Sufficiency: >= 30.0 ng/ml. Performed By: #### 5 8410-2 #### [facility] CLIA [id number] [address] OF [facility] ANES PRE-OPon 01-04-2023 ANES PRE-OP HNO ID: [id number] Author: Bert Bellamy MD Service: Anesthesiology Author Type: Physician Type: Anesthesia Preprocedure Evaluation Filed: 01/04/2023 2:21 PM Note Text: ANESTHESIOLOGY DAY OF SURGERY NOTE : 1940 Procedure Information Date/Time: 01/04/23 1338 Procedure: INSERTION NAIL / JESSY INTERMEDULLARY FEMUR WITH C-ARM (Left: Hip) Location: [place] [facility] 08 / [place] [facility] Surgeons: Errol Rod MD Estimated body mass index is 22.24 kg/m? as calculated from the following: Height as of this encounter: 177.8 cm (5' 10). Weight as of this encounter: 70.3 kg (154 lb 15.7 oz). Most recent hematocrit and potassium results: Hematocrit 31.0 01/03/2023 Potassium 5.3 01/03/2023 Relevant Problems CARDIO (+) Atrial fibrillation (HCC) (+) Coronary artery disease involving [place] coronary artery of [place] heart (+) Primary hypertension (+) S/P CABG (coronary artery bypass graft) PULMONARY (+) COPD (chronic obstructive pulmonary disease) (HCC) I - PHYSICAL EVALUATION AIRWAY Patient intubated: No. Tracheostomy tube not present Mallampati: III. TM distance: >3 FB. Neck ROM: full ROM without neurological symptoms. Mouth opening: adequate. Short neck: no. Thick neck: no DENTAL Dental findings: poor dentition. Additional exam findings: no II - ANESTHESIA PLAN ASA Score: 3 Anesthetic Plan: general Airway type: LMA The patient is not a current smoker. NPO Status: adequate Anesthetic plan additional comments: Hx CAD s/p CABG afib - watchman in place COPD FALL with stable head per neurosurgery Possible post op fascia iliaca block. Beta Anna Monitoring Plan Monitoring plan: standard ASA. Post Procedure Analgesic Plan Postoperative analgesic plan: multimodal analgesia, parenteral or oral opioids and peripheral nerve block. Informed Consent Anesthetic risks, benefits, alternatives, personnel and consent discussed: yes. Patient / Responsible Alliance Party agrees to proceed: yes Patient / Surrogate agrees to blood products: Yes Significant changes in the patient condition since the History and Physical, not otherwise documented in primary service progress note: no. Potential Anesthesia issues that may suggest increased risk of complications or contraindication to planned procedure: none. No vitals data found for the desired time range. Facility-Administered Medications as of 01/04/2023 Medication Dose Route Frequency - ergocalciferol (vitamin D2) 50,000 Units cap(s) (DRISDOL) 50,000 Units ORAL 1/WK - vancomycin iv piggyback 1 g in D5W 200 mL (VANCOCIN) 1 g INTRAVENOUS ONCE - ceFAZolin iv piggyback 2 g in D5W (iso-osmotic) 100 mL (ANCEF) 2 g INTRAVENOUS ONCE - tranexamic acid (CYKLOKAPRON) in NaCl 0.7% 1,000 mg 100 mL 1,000 mg INTRAVENOUS ONCE - [Held on Transfer] NaCl 0.9% iv flush bag 20 mL INTRAVENOUS PRN - [Held on Transfer] ondansetron 4 mg tab(s) (ZOFRAN) 4 mg ORAL q 6 H PRN Or - [Held on Transfer] ondansetron (PF) 4 mg injection (ZOFRAN) 4 mg INTRAVENOUS q 6 H PRN - [Held on Transfer] morphine 2 mg injection 2 mg INTRAVENOUS q 3 H PRN - [Held on Transfer] oxyCODONE IR 5-10 mg tab(s) (ROXICODONE) 5-10 mg ORAL q 6 H PRN - [Held on Transfer] acetaminophen 975 mg tab(s) (TYLENOL) 975 mg ORAL q 6 H - [Held on Transfer] pantoprazole 40 mg injection (PROTONIX) 40 mg INTRAVENOUS DAILY (6 AM) - [Held on Transfer] zinc oxide 20 % TOPICAL BID - [Held on Transfer] iv contrast (radiology procedure) INTRAVENOUS DIRECTED PRN - [Held on Transfer] amiodarone 200 mg tab(s) (PACERONE) 200 mg ORAL DAILY - [Held on Transfer] atorvastatin 40 mg tab(s) (LIPITOR) 40 mg ORAL AT BEDTIME - [Held on Transfer] carvedilol 3.125 mg tab(s) (COREG) 3.125 mg ORAL BID w MEALS - [Held on Transfer] levothyroxine 75 mcg tab(s) (SYNTHROID) 75 mcg ORAL DAILY (6 AM) Outpatient Medications as of 01/04/2023 Medication Sig - balsalazide (COLAZAL) 750 mg capsule Take 2,250 mg by mouth three times daily. - carvedilol (COREG) 12.5 mg tablet Take 12.5 mg by mouth twice daily with meals. - lisinopril (ZESTRIL) 20 mg tablet Take 20 mg by mouth twice daily. - ferrous sulfate 325 mg (65 mg iron) tablet Take 325 mg by mouth daily with breakfast. - AZATHIOPRINE (AZASAN ORAL) Take 50 mg by mouth once daily. - atorvastatin (LIPITOR) 40 mg tablet Take 40 mg by mouth once daily. - ezetimibe (ZETIA) 10 mg tablet Take 10 mg by mouth once daily. - clopidogrel (PLAVIX) 75 mg tablet Take 75 mg by mouth once daily. - aspirin 325 mg tablet Take 325 mg by mouth once daily. - Zinc Gluconate 50 mg tablet Take 50 mg by mouth three times daily. I have interviewed and examined the patient. I have reviewed the medical record and/or the pre-anesthesia evaluation, pertinent labs, and test results. This contains updated information obtained within 48 hours of Surgery/Procedure. SIGNATURE: Bert Bellamy MD PATIENT NAME: Amaury Blank DATE: January 04, 2023 MRN (more content not included)... [facility] BRIEF OP NOTon 01-04-2023 BRIEF OP NOT HNO ID: [id number] Author: Errol Rod MD Service: Orthopaedic Surgery Author Type: Physician Type: Brief Op Note Filed: 01/04/2023 3:55 PM Note Text: BRIEF OPERATIVE / PROCEDURE NOTE TOTAL HIP ARTHROPLASTY LOG ID: [id number] Surgery/Procedure Date: 01/04/2023 Incision/Procedure Start Time: 3:21 PM Incision Close/Procedure End Time: Surgeon(s)/Proceduralist(s) and Home Therapy Teacher(s): Surgeon(s) and Role: * Errol Rod MD - Primary * Chris Franco MD - Resident - Assisting * Ricky Quintana MD - Resident - Assisting No Additional Staff Procedure(s): Procedure(s) (LRB): INSERTION NAIL / JESSY INTERMEDULLARY FEMUR WITH C-ARM (Left) Anesthesia: Choice - Anesthesia Consult Findings: Comminuted IT left hip fracture Estimated Blood Loss: 50 mls Pre-Op/Pre-Procedure Diagnosis: Intertrochanteric fracture of left hip (HCC) [S72.142A] Post-Op/Post-Procedure Diagnosis: SAME Weight Bearing Status: Full Weight Bearing SIGNATURE: Errol Rod MD PATIENT NAME: Amaury Blank DATE: January 04, 2023 TIME: 3:54 PM [facility] CONSULTon 01-04-2023 CONSULT HNO ID: [id number] Author: João Sales MD Service: Clinical Cardiology Author Type: Physician Type: Consults Filed: 01/04/2023 8:38 AM Note Text: CARDIOLOGY CONSULT NOTE SERVICE DATE: 01/04/2023 SERVICE TIME: 8:10 AM CONSULTING PHYSICIAN: João Sales PCP: Elida Borges MD ATTENDING: Bing Perez MD REASON FOR CONSULT: Pre-Op Clearance CHIEF COMPLAINT: Head injury, acute, without loss of consciousness, sequela [S09.90XS] Intraparenchymal hemorrhage of brain (HCC) [I61.9] HPI:Cardiac consultation at the request of . Mr. Blank is a 82 year old male who is seen today for pre op clearance. He has a history of coronary artery disease, status post CABG X 2 (ZARAGOZA to 80% saphenous venous graft to PDA around 2016)), hypertension, hyperlipidemia, COPD, atrial fibrillation. He was admitted to [facility] with a ground-level fall when he was trying to turn using his walker. [facility] is a [facility]. He normally sees Dr. Borges for his cardiac care at [place]. Apparently, he was on oral anticoagulation for his atrial fibrillation. This was allegedly stopped about 6 months back because of anemia. Thereafter, he was on 81 mg of aspirin daily, and this was stopped about 4 to 6 weeks prior to his fall. His work-up at admission reviewed a left-sided frontal subacute intraparenchymal hemorrhage. He was also diagnosed with a left-sided frontal subacute intraparenchymal hemorrhage, and also a complex left intertrochanteric femoral fracture. Denies he was evaluated by orthopedic surgery, it was thought to need a surgical repair of his lower back. I was consulted for preoperative evaluation. Clinically, he has not had any history of myocardial infarctions within the last month or so. He also denies any active chest pain, exertional dyspnea, orthopnea, lightheadedness, dizziness or palpitations. From discussion with the patient, he appears to have an exercise capacity of >4.5 METS. Prior to his fall, he was able to go grocery shopping, up and down stairs without difficulty. His coronary angiography on 10/06/[address]queda at [facility] revealed patent ZARAGOZA to the LAD, occluded saphenous venous graft to the PDA. 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 He had centimeters of disease. He was referred to vascular surgery . He underwent successful stenting of his left renal artery, but developed brachial sheath hematoma requiring emergent surgery for repair of brachial artery. He did well thereafter. Since admission, he has felt somewhat better with pain control medications. At present, the patient is comfortable lying in bed, talking to me in full sentences and does not appear to be overtly short of breath. PAST MEDICAL HISTORY Diagnosis Date CAD (coronary artery disease) History of GI bleed HTN (hypertension) Hyperlipidaemia Hypothyroidism PAD (peripheral artery disease) (HCC) UC (ulcerative colitis) (HCC) PAST SURGICAL HISTORY Procedure Laterality Date PAST SURGICAL HISTORY OF Right 1966 right hand PAST SURGICAL HISTORY OF Right 2004 right flank chronic inflammed tissue PAST SURGICAL HISTORY OF multiple skin bx--benign SOCIAL HISTORY Social History Tobacco Use Smoking status: Former Substance Use Topics Alcohol use: Yes Drug use: No FAMILY HISTORY Problem Relation Age of Onset Colon Cancer Paternal Grandfather Breast Cancer Mother ALLERGIES: ALLERGIES Allergen Reactions Amlodipine Rash Lovastatin Hives MEDICATIONS: balsalazide (COLAZAL) 750 mg capsuleTake 2,250 mg by mouth three times daily.Disp: Rfl: carvedilol (COREG) 12.5 mg tabletTake 12.5 mg by mouth twice daily with meals.Disp: Rfl: lisinopril (ZESTRIL) 20 mg tabletTake 20 mg by mouth twice daily.Disp: Rfl: ferrous sulfate 325 mg (65 mg iron) tabletTake 325 mg by mouth daily with breakfast.Disp: Rfl: AZATHIOPRINE (AZASAN ORAL)Take 50 mg by mouth once daily.Disp: Rfl: atorvastatin (LIPITOR) 40 mg tabletTake 40 mg by mouth once daily.Disp: Rfl: ezetimibe (ZETIA) 10 mg tabletTake 10 mg by mouth once daily.Disp: Rfl: clopidogrel (PLAVIX) 75 mg tabletTake 75 mg by mouth once daily.Disp: Rfl: aspirin 325 mg tabletTake 325 mg by mouth once daily.Disp: Rfl: Zinc Gluconate 50 mg tabletTake 50 mg by mouth three times daily.Disp: Rfl: REVIEW OF SYSTEMS: GENERAL: Negative for:Weight loss and Weight gain HEENT: Negative for:Nosebleeds RESPIRATORY: Negative for:Shortness of breath GASTROINTESTINAL: Negative for:Blood in stool MUSCULOSKELETAL: Negtive for: Muscle or joint pain, stiffness, Joint swelling SKIN: No rash HEMATOLOGICAL/LYMPHATIC: Negative for: Easy bruising and Easy bleeding CARDIOVASCULAR: As stated in HPI. 10 system review negative except as stated in HPI PHYSICAL EXAMINATION: BP 144/58 Pulse 65 Temp (Src) 97.9 (Oral) Resp 20 Ht 5' 10 (1.78 (more content not included)... Normal [facility] CONSULT PROGon 01-04-2023 CONSULT PROG HNO ID: [id number] Author: Carly Sinclair MD Service: Hospital Medicine Author Type: Physician Type: Consult Progress Note Filed: 01/04/2023 3:03 PM Note Text: DEPARTMENT OF HOSPITAL MEDICINE PROGRESS NOTE SERVICE DATE: 01/04/2023 SERVICE TIME: 2:56 PM Hospital Medicine/Primary Attending: Carly Ramirez MD NIGHT AND WEEKEND COVERAGE: After 7pm please page [phone] SUBJECTIVE: resting in bed , no complaints Waiting surgery in the afternoon Denies CP/SOB. Denies nausea/vomiting/diarrhea. OBJECTIVE: PHYSICAL EXAM: BP 156/65 Pulse 65 Temp (Src) 98.1 (Oral) Resp 20 Ht 5' 10 (1.78m) Wt 154 lb 15.7 oz (70.3kg) SpO2 93% BMI 22.24 kg/(m2). O2 Therapy: Room Air General: NAD, appears comfortable Resp: Clear to auscultation B/L, no wheeze/rhonchi, unlabored CV: RRR, Normal S1S2, No murmur/rub/gallop GI: soft, NT/ND, + BS Ext: no cyanosis/clubbing/edema Neuro: AANDO x 3, speech fluent MEDICATIONS: Current Facility-Administered Medications Medication Dose Route Frequency [Held on Transfer] ergocalciferol (vitamin D2) 50,000 Units cap(s) (DRISDOL) 50,000 Units ORAL 1/WK vancomycin iv piggyback 1 g in D5W 200 mL (VANCOCIN) 1 g INTRAVENOUS ONCE [Held on Transfer] ceFAZolin iv piggyback 2 g in D5W (iso-osmotic) 100 mL (ANCEF) 2 g INTRAVENOUS ONCE [Held on Transfer] tranexamic acid (CYKLOKAPRON) in NaCl 0.7% 1,000 mg 100 mL 1,000 mg INTRAVENOUS ONCE [Held on Transfer] NaCl 0.9% iv flush bag 20 mL INTRAVENOUS PRN [Held on Transfer] ondansetron 4 mg tab(s) (ZOFRAN) 4 mg ORAL q 6 H PRN Or [Held on Transfer] ondansetron (PF) 4 mg injection (ZOFRAN) 4 mg INTRAVENOUS q 6 H PRN [Held on Transfer] morphine 2 mg injection 2 mg INTRAVENOUS q 3 H PRN [Held on Transfer] oxyCODONE IR 5-10 mg tab(s) (ROXICODONE) 5-10 mg ORAL q 6 H PRN [Held on Transfer] acetaminophen 975 mg tab(s) (TYLENOL) 975 mg ORAL q 6 H [Held on Transfer] pantoprazole 40 mg injection (PROTONIX) 40 mg INTRAVENOUS DAILY (6 AM) [Held on Transfer] zinc oxide 20 % TOPICAL BID [Held on Transfer] iv contrast (radiology procedure) INTRAVENOUS DIRECTED PRN [Held on Transfer] amiodarone 200 mg tab(s) (PACERONE) 200 mg ORAL DAILY [Held on Transfer] atorvastatin 40 mg tab(s) (LIPITOR) 40 mg ORAL AT BEDTIME [Held on Transfer] carvedilol 3.125 mg tab(s) (COREG) 3.125 mg ORAL BID w MEALS [Held on Transfer] levothyroxine 75 mcg tab(s) (SYNTHROID) 75 mcg ORAL DAILY (6 AM) DATA: Diagnostic tests reviewed for today's visit: CBC, Coags, BMP, Mg, Phos Recent Labs 01/03/23 1630 01/03/23 1413 01/03/23 1121 WBC -- 8.44 -- HB -- 9.9* -- HCT -- 31.0* -- PLT -- 260 -- INR -- -- 1.0 APTT -- -- 27.4 NA -- 135* -- K 5.3* 5.3* -- CHLOR -- 101 -- CO2 -- 23 -- BUN -- 38* -- CREAT -- 2.19* -- GLUC -- 83 -- CA -- 9.3 -- CSF AND Dilantin Liver Function, Amylase, AND Lipase Cardiac Enzymes ABGs Problem List Head injury, acute, without loss of consciousness, sequela (POA: Yes) Stasis ulcer (HCC) (POA: Status not on file) Skin tear of left elbow without complication (POA: Status not on file) Noninfected skin tear of left leg (POA: Status not on file) Alteration in skin integrity due to moisture (POA: Status not on file) Coronary artery disease involving [place] coronary artery of [place] heart (POA: Status not on file) S/P CABG (coronary artery bypass graft) (POA: Status not on file) Atrial fibrillation (HCC) (POA: Status not on file) Primary hypertension (POA: Status not on file) Other hyperlipidemia (POA: Status not on file) COPD (chronic obstructive pulmonary disease) (HCC) (POA: Status not on file) Fall (POA: Status not on file) HOSPITAL COURSE: Amaury Blank is a 82 year old male with #Left intertrochanteric fracture -Orthopedics following -OR today #CAD stable without angina some exertional dyspnea reported -Patient off blood thinners due to frequent GI bleeding reportedly -on BB , lisinopril and diuretics on hold -Cardiology follows #Left frontal subacute intraparenchymal hemorrhage -Neurosurgery and trauma following appreciate recs #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 today at baseline -avoid nephrotoxic meds -renal diet #Anemia-stable improved from 2020 #hyperkalemia-slight -would repeat K avoid meds that may increase -monitor on tele -would hold starr if still taking -stable , no indication of treatment <6 #Left lower extremity foot wound -wound care/podiatry consult #Frequent falls -Recommend fall precautions, PT OT eval's prior to discharge #UC -need to clarify meds #Afib -patient on ameo/coreg -not on anticoag due to falls and gib hx VTE Prophylaxis: As per primary team Disposition: To be determined Plan of care discussed with: Patient, RN SIGNATURE: Carly Sinclair MD PATIENT NAME: Amaury Blank DATE: January 04, 2023 TIME: 2:56 PM PAGER/CONTACT #: sound team color Normal [facility] ECG COMPLETEon 01-04-2023 ECG COMPLETE Ventricular Rate : 6 4 BPM Atrial Rate : 64 BPM P-R Interval : 208 ms QRS Duration : 128 ms Q-T Interval : 460 ms QTC Calculation(Bazett) : 474 ms Calculated P [place] : -7 degrees Calculated R [place] : -43 degrees Calculated T [place] : 60 degrees NORMAL SINUS RHYTHM LEFT AXIS DEVIATION INCOMPLETE RIGHT BUNDLE BRANCH BLOCK MINIMAL VOLTAGE CRITERIA FOR LVH, MAY BE NORMAL VARIANT ( [employer] product ) CANNOT RULE OUT SEPTAL INFARCT , AGE UNDETERMINED INFERIOR INFARCT (CITED ON OR BEFORE 03-JAN-2023) ABNORMAL ECG WHEN COMPARED WITH ECG OF 03-JAN-2023 18:17, [place] INTERVAL HAS DECREASED MINIMAL CRITERIA FOR SEPTAL INFARCT ARE NOW PRESENT Confirmed by MD SALES VINAYAK ([id number]) on 01/06/2023 3:19:36 PM NAME : AMAURY BLANK PID : [id number] : 1940 Gender : Male Race : ORD : [id number] Procedure Date : Jan 04 2023 06:32:58 Edit Date : Jan 06 2023 15:19:37 Diagnosis: NORMAL SINUS RHYTHM LEFT AXIS DEVIATION INCOMPLETE RIGHT BUNDLE BRANCH BLOCK MINIMAL VOLTAGE CRITERIA FOR LVH, MAY BE NORMAL VARIANT ( [place] product ) CANNOT RULE OUT SEPTAL INFARCT , AGE UNDETERMINED INFERIOR INFARCT (CITED ON OR BEFORE 03-JAN-2023) ABNORMAL ECG WHEN COMPARED WITH ECG OF 03-JAN-2023 18:17, [place] INTERVAL HAS DECREASED MINIMAL CRITERIA FOR SEPTAL INFARCT ARE NOW PRESENT Confirmed by MD SALES VINAYAK ([id number]) on 01/06/2023 3:19:36 PM Test Reason : Pre-OP Location : 152 : [id number] Overread By : MD SALES VINAYAK Edited By : MD SALES VINAYAK Referred By : , Acquired by : KASI LEMA [facility] ED NOTEon 01-04-2023 ED NOTE HNO ID: [id number] Author: Comfort Dias RN Service: ? Author Type: Registered Nurse Type: ED Notes Filed: 01/04/2023 12:05 AM Note Text: Up with Rozina [facility] ED NOTE HNO ID: [id number] Author: Comfort Dias RN Service: ? Author Type: Registered Nurse Type: ED Notes Filed: 01/04/2023 12:04 AM Note Text: Up with Génesis [facility] ED NOTE HNO ID: [id number] Author: Comfort Dias RN Service: ? Author Type: Registered Nurse Type: ED Notes Filed: 01/04/2023 12:02 AM Note Text: Up with Rozina Jay [facility] OPERATIVE NOon 01-04-2023 OPERATIVE NO HNO ID: [id number] Author: Errol Rod MD Service: Orthopaedic Surgery Author Type: Physician Type: Operative Report Filed: 01/05/2023 5:52 PM Note Text: OPERATIVE/PROCEDURE REPORT LOG ID: [id number] SURGERY/PROCEDURE DATE: 01/04/2023 INCISION/PROCEDURE START TIME: 3:21 PM INCISION CLOSE/PROCEDURE END TIME: 4:12 PM SURGEON(S)/PROCEDURALIST(S) AND FLORAL ASSISTANT(S): Surgeon(s) and Role: * Errol Rod MD - Primary * Chris Franco MD - Resident - Assisting * Ricky Quintana MD - Resident - Assisting No Additional Staff SURGERY/PROCEDURE(S): 1) Insertion of left Hip Intramedullary Femoral Nail ANESTHESIA: 1) Choice - Anesthesia Consult ANTIBIOTICS: 1) Vancomycin 1 g SURGERY/PROCEDURE DETAILS: 82 year old male presented to [facility] on 01/03/2023 for evaluation after a left hip pain. The patient was found to have a left intertrochanteric hip fracture. The patient was admitted to the trauma service due to concern for head bleed as well. The risks, limitations, benefits and alternatives to all treatment options were discussed with the patient. The patient elected to proceed with left hip cephalomedullary nailing and signed the informed consent. The patient was met in the pre-operative holding area on 01/04/23. A pre-operative huddle was conducted with the surgical team. The patient was identified with two patient identifiers (name and date of ). The patient's operative extremity (left lower extremity) was marked. The pre-operative checklist, including review of the informed consent, was reviewed and agreed upon by all members of the surgical team. The patient was then transferred to the operating room. Endotracheal intubation was performed per anesthesia. The patient was then positioned supine on the fracture table with attention paid to padding of all bony prominences. A final time-out was then performed in accordance with [facility] policy. The patient was then pre-cleansed with alcohol and a Hibiclens solution. Fluoroscopy was then utilized to confirm reduction of the left trochanteric femur fracture. After adequate reduction was achieved, the patient was sterilely prepped (ChloroPrep) and draped in standard fashion. A skin incision was made with scalpel over the greater trochanter laterally on the thigh, followed by electrocautery for hemostasis. Exposure was carried down to the fascia, which was incised in line with the surgical incision. A sharp guidewire was placed in the trochanteric starting point and passed into the proximal femur. An opening reamer was used. The Synthes femoral nail was passed into the femur across the fracture site. Position was confirmed with imaging in multiple planes. A second incision was made for placement of a lag screw across the femoral neck into the head. The construct was compressed. Finally, a distal locking screw was applied through the nail from lateral to media via a percutaneous incision. Final images demonstrated appropriate fracture reduction and hardware position. The patient's incisions were then thoroughly irrigated with sterile saline. The deep fascial layer was closed with 0 vicryl. The subcutaneous tissue was closed with 2-0 vicryl. A running subcuticular 3-0 monocryl was then utilized for final closure of the incisions. Steri strips were then applied to the incisions, followed by two Mepilex dressings. The patient was extubated per anesthesia and then transferred to the inpatient hospital bed. The patient tolerated the procedure well with no complications and was in stable condition at the conclusion of the procedure. Sponge count, wound class classification and verification of the procedure was completed prior to final closure of the surgical incisions. PRE-OP/PRE-PROCEDURE DIAGNOSIS: 1) left intertrochanteric hip fracture POST-OP/POST-PROCEDURE DIAGNOSIS: 1) left intertrochanteric hip fracture SPECIMENS: None IMPLANTABLE DEVICES: Implant Name Type Inv. Item Serial No. Russian Teacher Lot No. LRB No. Used Action NAIL TFN-ADVANCED 10MM 130D SHORT GOLD GREEN IVERSON TI-15MO 170MM - [id number] Nail NAIL TFN-ADVANCED 10MM 130D SHORT GOLD GREEN IVERSON TI-15MO 170MM SYN[employer]ES TRAUMA [id number] Left 1 Implanted SCREW TFN-ADVANCED 10.35MM 3.5MM IVERSON [id number] 90MM BONE CANNULATED - [id number] Screw SCREW TFN-ADVANCED 10.35MM 3.5MM IVERSON [id number] 90MM BONE CANNULATED SYN[employer]ES TRAUMA Left 1 Implanted SCREW 5MM 4.3MM T25 FULL THREAD TITANIUM 34MM BONE LOCK SELF TAP BLUNT TIP - [id number] Screw SCREW 5MM 4.3MM T25 FULL THREAD TITANIUM 34MM BONE LOCK SELF TAP BLUNT TIP Clusterize [employer] [place] Left 1 Implanted DRAINS: None COMPLICATIONS: None POST-OPERATIVE PLAN: -Management per primary -Pain control -DVT prophylaxis: Per primary -Diet: Per primary -Dressings: Mepilex dressings for 7 to 10 days -Antibiotics: Vancomycin 1 g x 1 dose -Ice left hip (more content not included)... Normal [facility] THERAPY NTon 01-04-2023 THERAPY NT HNO ID: [id number] Author: Tremayne Mckeon PT Service: Physical Therapy Author Type: Physical Therapist Type: Therapy (PT/OT/Speech/Resp) Filed: 01/04/2023 12:28 PM Note Text: PHYSICAL THERAPY MISSED VISIT SERVICE DATE: 01/04/2023 SERVICE TIME: 1227 to 1227 ROOM: [place] [address] Patient not seen due to Test / Procedure (OR today). Will evaluate when able/appropriate. SIGNATURE: Tremayne Mckeon PT PATIENT NAME: Amaury Blank DATE: January 04, 2023 TIME: 12:28 PM Normal [facility] THERAPY NT HNO ID: [id number] Author: ROSALIO Alvarez/Gunner Service: Occupational Therapy Author Type: Occupational Therapist Type: Therapy (PT/OT/Speech/Resp) Filed: 01/04/2023 8:09 AM Note Text: OCCUPATIONAL THERAPY MISSED VISIT SERVICE DATE: 01/04/2023 SERVICE TIME: 08 to 0809 ROOM: [place] [address] Patient not seen due to Test / Procedure (OR today). SIGNATURE: ROSALIO Alvarez/Gunner PATIENT NAME: Amaury Blank DATE: January 04, 2023 TIME: 8:09 AM [facility] XR HIP 2V AP/ LAT LTon 01-04 XR HIP 2V AP/ LAT LT * * *Final Report* * * DATE OF EXAM: Jan 04 2023 4:16PM [facility] 5279 - XR HIP 2V AP/ LAT LT / PROCEDURE REASON: INSERTION NAIL/JESSY * * * * Physician Interpretation * * * * EXAM TITLE: XR HIP 2V AP/ LAT LT DATE: 01/06/2023 7:45 AM INDICATION: Intraoperative for fixation COMPARISON: None. FINDINGS: 50 seconds of fluoroscopy time was provided. 4 images were obtained demonstrating placement of an intramedullary nail transfixing a femoral neck fracture. IMPRESSION: Intraoperative exam. Dog [employer] Horse Racing Official: ANABEL Transcribe Date/Time: Jan 06 2023 7:45A Dictated by : JUWAN NARANJO MD This examination was interpreted and the report reviewed and electronically signed by: JUWAN NARANJO MD on Jan 06 2023 7:46AM EST [id number] Normal [facility] XR PELVIS 1V APon 01-04-2023 XR PELVIS 1V AP * * *Final Report* * * DATE OF EXAM: Jan 04 2023 6:07PM [facility] [id number] - XR PELVIS 1V AP / PROCEDURE REASON: Pelvic fracture * * * * Physician Interpretation * * * * EXAMINATION: XR PELVIS 1V AP HISTORY: post op Pelvic fracture. TECHNIQUE: XR PELVIS 1V AP Laterality: NOT APPLICABLE Number of different views (projections): 1 M: XB_1 COMPARISON: Preoperative radiograph RESULT: Degenerative type nail is present of the left proximal femur. Left femoral neck fracture is anatomically positioned. No other significant abnormality. IMPRESSION: Unremarkable postoperative appearance [employer] Official: [facility] Transcribe Date/Time: Jan 04 2023 6:58P Dictated by : FABIÁN CALVO MD This examination was interpreted and the report reviewed and electronically signed by: AFBIÁN CALVO MD on Jan 04 2023 7:00PM EST [id number] Normal [facility] ALLIED HEALTHon 01-03-2023 ALLIED HEALTH HNO ID: [id number] Author: RT Jamey(R) Service: Radiology Author Type: Technologist Type: Allied Health Filed: 01/03/2023 1:14 PM Note Text: Radiology Service Progress Note PATIENT NAME: Amaury Blank DATE OF SERVICE: January 03, 2023 TIME: 1:14 PM PATIENT IDENTITY VERIFICATION COMPLETED USING TWO (2) IDENTIFIERS: Name and Date of confirmed by patient verbally and Name and Date of confirmed by identification band. FALL SCREENING: Has the patient had 2 falls in the last year or 1 fall with injury or currently using an Ambulatory Assistive Device (Walker, Cane, Wheelchair, Crutches, etc.)? Emergency Room Patient: Screened in ED PATIENT GENDER DATA: Male PATIENT RELEVANT IMPLANT DATA REVIEWED: Yes RADIOLOGY DEPARTMENT: CT; Exam(s) Completed: Brain PERIPHERAL IV DATA: Not applicable SIGNED BY: Nay Hinson RT(R) January 03, 2023 1:14 PM Normal [facility] Absolute lymphocyte countOrd ered By: Lupe Joe on 01-03-2023 Lymphocytes Auto (Unsp spec) [#/Vol] 0.79 10*3/uL 0.83-4.51 [facility] Basic metabolic 2000 panelon 01-03-2023 Anion gap [Moles/Vol] 11 mmol/L Normal 9-18 [facility] Comment on above: Order Comment: Speci men Type: BLOOD SPECIMENOrdering Facility: [facility] Address: [address] [place] [address] Performed By: #### 2 4321-2 ####[facility]ORY[facility]IA [id number] [place] [address] [place] Calcium [Mass/Vol] 9.3 mg/dL Normal 8.5-10.2 [facility] Comment on above: Order Comment: Speci men Type: BLOOD SPECIMENOrdering Facility: [facility] Address: [address] [place] [address] Performed By: #### 2 4321-2 ####[facility]ORYCLIA [id number] [place] [address] [place] Chloride [Moles/Vol] 101 mmol/L Normal 97-105 [facility] Comment on above: Order Comment: Speci men Type: BLOOD SPECIMENOrdering Facility: [facility] Address: [address] [place] [address] Performed By: #### 2 4321-2 ####[facility]ORYCLIA [id number] [place] [address] [place] CO2 [Moles/Vol] 23 mmol/L Normal 22-30 [facility] Comment on above: Order Comment: Speci men Type: BLOOD SPECIMENOrdering Facility: [facility] Address: [address] [address] Performed By: #### 2 4321-2 ####[facility] [id number] [address] OF [facility] Creatinine [Mass/Vol] 2.19 mg/dL High 0.73-1.22 [facility] Comment on above: Order Comment: Speci akil Type: BLOOD SPECIMENOrdering Facility: [facility] Address: [address] [address] Performed By: #### 2 4321-2 ####[facility] HUM[facility] SERVICESIA [id number] [address] ESTIMATED GLOMERULAR FILTRATION RATE 30 mL/min/1.73m??? Low >=60 [facility] Comment on above: Order Comment: Speci men Type: BLOOD SPECIMENOrdering Facility: [facility] Address: [address] [place] [address] Result Comment: Lindsay mated Glomerular Filtration Rate (eGFR) is calculated using the 2020 CKD-EPI creatinine equation. This equation utilizes serum creatinine, sex, and age as parameters. The creatinine assay has traceable calibration to isotope dilution-mass spectrometry. Refer to KDIGO guidelines for clinical interpretation. In patients with unstable renal function, e.g. those with acute kidney injury, the eGFR may not accurately reflect actual GFR. Performed By: #### 2 4321-2 ####[facility]ORYIA [id number] [address] Glucose [Mass/Vol] 83 mg/dL Normal 74-99 [facility] Comment on above: Order Comment: Specheather barnard Type: BLOOD SPECIMENOrdering Facility: [facility] Address: [address] [place] [address] Result Comment: The [place] Diabetes Association (ADA) provides guidance for cutoff values for fasting glucose and random glucose. The ADA defines fasting as no caloric intake for at least 8 hours. Fasting plasma glucose results between 100 to 125 mg/dL indicate increased risk for diabetes (prediabetes). Fasting plasma glucose results greater than or equal to 126 mg/dL meet the criteria for diagnosis of diabetes. In the absence of unequivocal hyperglycemia, results should be confirmed by repeat testing. In a patient with classic symptoms of hyperglycemia or hyperglycemic crisis, random plasma glucose results greater than or equal to 200 mg/dL meet the criteria for diagnosis of diabetes. Reference: Standards of Medical Care in Diabetes 2016, [place] [employer] Association. Diabetes Care. 2016.39(Suppl 1). Performed By: #### 2 4321-2 ####[facility]ORYCLIA [id number] [place] [address] [place] [facility] Potassium [Moles/Vol] 5.3 mmol/L High 3.7-5.1 [facility] Comment on above: Order Comment: Migel barnard Type: BLOOD SPECIMENOrdering Facility: [facility] Address: [address] [place] [address] Performed By: #### 2 4321-2 ####[facility]ORYCLIA [id number] [address] [place] Sodium [Moles/Vol] 135 mmol/L Low 136-144 [facility] Comment on above: Order Comment: Migel barnard Type: BLOOD SPECIMENOrdering Facility: [facility] Address: [address] [place] [address] Performed By: #### 2 4321-2 ####[facility]ORYCLIA [id number] [address] [place] Urea nitrogen [Mass/Vol] 38 mg/dL High 9-24 [facility] Comment on above: Order Comment: Migel barnard Type: BLOOD SPECIMENOrdering Facility: [facility] Address: [address] [place] [address] Performed By: #### 2 4321-2 ####[facility]ORYCLIA [id number] [place] [address] [place] Basophil percentageOrdered B y: Lupe Joe on 01-03-2023 Basophil percentage 99 mg/dL 74-106 [facility] Basophil percentage 139 mmol/L 136-145 [facility] Basophil percentage 5.0 mmol/L 3.5-5.1 [facility] Basophil percentage 107 mmol/L 98-107 [facility] Basophils (Bld) [#/Vol] 5.9 10*3/uL 4.4-11.0 [facility] Basophils (Bld) [#/Vol] 4.3 10*3/uL 2.0-7.7 [facility] Basophils/100 WBC (Bld) 72.5 % 47-70 [facility] Basophils/100 WBC (Bld) 2.9 % 0-5 [facility] Basophils/100 WBC (Bld) 0.7 % 0-1 [facility] Blood erythrocytes count (nu mber/volume)Ordered By: Lupe Joe on 01-03-2023 RBC (Bld) [#/Vol] 2.96 10*6/uL 4.6-6.2 [facility] Blood hemoglobin measurement (mass/volume)Ordered By: Lupe Joe on 01-03-2023 Hemoglobin (Bld) [Mass/Vol] 9.5 g/dL 13.0-16.5 [facility] Blood lymphocytes/100 leukoc ytesOrdered By: Lupe Joe on 01-03-2023 Lymphocytes/100 WBC (Bld) 13.5 % 19-41 [facility] Blood monocytes/100 leukocyt esOrdered By: Lupe Joe on 01-03-2023 Monocytes/100 WBC (Bld) 9.7 % 0-10 [facility] Blood platelet mean volumeOr dered By: Lupe Joe on 01-03-2023 Platelet mean volume (Bld) [Entitic vol] 9.4 fL 6.2-12.0 [facility] CBC panel Auto (Bld)on 01-03 Erythrocyte distribution width (RBC) [Ratio] 14.5 % Normal 11.5-15.0 [facility] Comment on above: Order Comment: Speci men Type: BLOOD SPECIMEN [facility] Address: [address] [place] [id number] Performed By: #### 5 8410-2 #### [facility] CLIA [id number] [address] [place] [address] [place] Hematocrit (Bld) [Volume fraction] 31.0 % Low 39.0-51.0 [facility] Comment on above: Order Comment: Speci men Type: BLOOD SPECIMEN [facility] Address: [address] [place] [address] Performed By: #### 5 8410-2 #### [facility] CLIA [id number] [address] OF [facility] Hemoglobin (Bld) [Mass/Vol] 9.9 g/dL Low 13.0-17.0 [facility] Comment on above: Order Comment: Speci men Type: BLOOD SPECIMEN [facility] Address: [address] [address] Performed By: #### 5 8410-2 #### [facility] CLIA [id number] [address] STATES OF [facility] MCH (RBC) [Entitic mass] 33.1 pg Normal 26.0-34.0 [facility] Comment on above: Order Comment: Speci men Type: BLOOD SPECIMEN [facility] Address: [address] [address] Performed By: #### 5 8410-2 #### [facility] CLIA [id number] [address] OF [facility] MCHC (RBC) [Mass/Vol] 31.9 g/dL Normal 30.5-36.0 [facility] Comment on above: Order Comment: Speci men Type: BLOOD SPECIMEN [facility] Address: [address] [address] Performed By: #### 5 8410-2 #### [facility] CLIA [id number] [address] OF [place] MCV (RBC) [Entitic vol] 103.7 fL High 80.0-100.0 [facility] Comment on above: Order Comment: Speci men Type: BLOOD SPECIMEN [facility] Address: [address] [place] [address] Performed By: #### 5 8410-2 #### [facility] CLIA [id number] [address] OF [place] Nucleated RBC (Bld) [#/Vol] 10*3/uL Normal <0.01 [facility] Comment on above: Order Comment: Speci men Type: BLOOD SPECIMEN [facility] Address: [address] [place] [address] Performed By: #### 5 8410-2 #### [facility] CLIA [id number] [address] OF [place] Platelet mean volume (Bld) [Entitic vol] 10.5 fL Normal 9.0-12.7 [facility] Comment on above: Order Comment: Speci men Type: BLOOD SPECIMEN [facility] Address: [address] [place] [address] Performed By: #### 5 8410-2 #### [facility] CLIA [id number] [address] Platelets (Bld) [#/Vol] 260 10*3/uL Normal 150-400 [facility] Comment on above: Order Comment: Speci men Type: BLOOD SPECIMEN [facility] Address: [address] [place] [address] Performed By: #### 5 8410-2 #### [facility] CLIA [id number] [address] OF [place] RBC (Bld) [#/Vol] 2.99 10*6/uL Low 4.20-6.00 [facility] Comment on above: Order Comment: Speci men Type: BLOOD SPECIMEN [facility] Address: [address] [place] [address] Performed By: #### 5 8410-2 #### [facility] CLIA [id number] [address] OF [place] WBC (Bld) [#/Vol] 8.44 10*3/uL Normal 3.70-11.00 [facility] Comment on above: Order Comment: Speci men Type: BLOOD SPECIMEN [facility] Address: [place] [address] Performed By: #### 5 8410-2 #### [facility] [id number] [address] [id number] [facility] CONSULTon 01-03-2023 CONSULT HNO ID: [id number] Author: Curt Erwin DO Service: Hospital Medicine Author Type: Physician Type: Consults Filed: 01/03/2023 9:25 PM Note Text: DEPARTMENT OF HOSPITAL MEDICINE INITIAL CONSULT SERVICE DATE: 01/03/2023 SERVICE TIME: 2:23 PM Primary Care Physician: Elida Borges MD NIGHT AND WEEKEND COVERAGE:Sound REASON FOR CONSULT: preoperative evaluation REQUESTING PHYSICIAN: Dr. Rod Subjective CHIEF COMPLAINT: Left hip pain HPI: This is a 82 year old male with past medical history significant for CAD, ulcerative colitis with recurrent GI bleeds, PAD and frequent falls presents from home with mechanical fall transferred from [facility]. Patient reports he was getting up to go to the bathroom at night using his walker. He reports when he was getting back in bed he felt like he tripped and fell hitting his left buttocks on the ground and then his head. He reports severe pain in his left hip since the fall. He otherwise reports he has been in his normal health. He denies any recent illness including fevers, chills, shortness breath, chest pain, headache, lightheadedness, dizziness, nausea, vomiting, diarrhea, abdominal pain, dysuria or other urinary abnormalities. Patient does report he has chronic exertional weakness which is why he is in a nursing facility at baseline and has assistance with his daily activities there. He is also been having frequent falls. He does have a wound on his left lower extremity which has been getting daily wound care treatment at the facility-he reports he is never seen a foot doctor for this. He reports at baseline he can walk about 175 feet with his walker but does become very fatigued after that. He otherwise has no other complaints or concerns at this time. CT scan in the ER did show incidental subacute intraparenchymal hemorrhage. X-ray also showed intertrochanteric left femur fracture. He was sent to our ER for further evaluation by specialist. PAST MEDICAL HISTORY Diagnosis Date CAD (coronary artery disease) History of GI bleed HTN (hypertension) Hyperlipidaemia Hypothyroidism PAD (peripheral artery disease) (HCC) UC (ulcerative colitis) (HCC) PAST SURGICAL HISTORY Procedure Laterality Date PAST SURGICAL HISTORY OF Right 1966 right hand PAST SURGICAL HISTORY OF Right 2004 right flank chronic inflammed tissue PAST SURGICAL HISTORY OF multiple skin bx--benign FAMILY HISTORY Problem Relation Age of Onset Colon Cancer Paternal Grandfather Breast Cancer Mother Social History Tobacco Use Smoking status: Former Substance Use Topics Alcohol use: Yes Drug use: No MEDICATIONS: Reviewed (Not in a hospital admission) Current Facility-Administered Medications Medication Dose Route Frequency NaCl 0.9% iv flush bag 20 mL INTRAVENOUS PRN NaCl 0.9% iv infusion 100 mL/hr INTRAVENOUS CONTINUOUS ondansetron 4 mg tab(s) (ZOFRAN) 4 mg ORAL q 6 H PRN Or ondansetron (PF) 4 mg injection (ZOFRAN) 4 mg INTRAVENOUS q 6 H PRN morphine 2 mg injection 2 mg INTRAVENOUS q 3 H PRN oxyCODONE IR 5-10 mg tab(s) (ROXICODONE) 5-10 mg ORAL q 6 H PRN acetaminophen 975 mg tab(s) (TYLENOL) 975 mg ORAL q 6 H [START ON 01/04/2023] pantoprazole 40 mg injection (PROTONIX) 40 mg INTRAVENOUS DAILY (6 AM) . ALLERGIES Allergen Reactions Amlodipine Rash Lovastatin Hives REVIEW OF SYSTEMS: All ROS reviewed and negative unless otherwise note din HPI Objective PHYSICAL EXAM: BP 162/68 Pulse 67 Temp (Src) 97.7 (Oral) Resp 17 Ht 5' 10 (1.78m) Wt 175 lb (79.4kg) SpO2 94% BMI 25.11 kg/(m2). O2 Therapy: Room Air Physical Exam Performed: GENERAL: Alert, no distress, cooperative SKIN: Left foot wound with drainage with serous drainage HEAD/SINUSES: No significant findings EYES: PERRLA, EOMI EARS: External ears normal, canals clear NOSE: Nares normal. Septum midline. OROPHARYNX: Lips, mucosa, and tongue normal. Teeth and gums normal. Oropharynx normal. NECK: No jugulovenous distention, No carotid bruits, Carotid pulse normal contour, Supple BACK: Back symmetric, Normal curvature, ROM normal, No CVAT. LUNGS: Lungs clear to auscultation, Good diaphragmatic excursion CARDIAC: Normal S1 and S2; no rubs, murmurs, or gallops ABDOMEN: Abdomen soft, non-tender, BS normal, No masses or organomegaly EXTREMITIES: Tenderness to left hip, 1+ lower extremity edema in the left with wound on left dorsal foot NEURO: Follows commands, moves all extremities Lines, Drains, and Airways Line Duration Peripheral 01/03/23 External Facility Left Arm 20 Gauge <1 day DATA: Diagnostic tests reviewed for today's visit: Most recent labs and imaging results. See paperwork from [employer] Notable findings:hgb-9.5 Cr-2.29 XR L hip- intertrochanteric femur fx CT brain-1.2 cmn hyperdense focus L frontal lobe w/ surrounding vasogenic edema-likely subacute hematoma Impression/Recommendations The patient is (more content not included)... Normal [facility] CONSULT HNO ID: [id number] Author: Renetta Mehta PA-C Service: Neurosurgery Author Type: Physician Home Therapy Teacher Type: Consults Filed: 01/03/2023 4:25 PM Note Text: Attestation signed by Claudia Westfall MD, PhD at 01/04/2023 1:30 PM Attending Note I have personally performed a face to face assessment of the patient and have reviewed the LIBERTAD note. I performed a substantive portion of the visit including all aspects of the following. My hernadez findings include: The patient presents after a fall from standing in his bedroom. He denies LOC or hitting his head. He does complaint of left hip pain. He denies headache. He did have another fall approximately 1 month ago when he was seen in [place]. He is neurologically intact except for limited movement of the left hip related to the fracture. CT head revealed a left frontal small ICH with surrounding edema. Recommend MRI brain with and without contrast given the cortical nature of the hemorrhage to rule out metastatic disease - the ICH is most likely related to his prior trauma month ago given the associated edema The patient is cleared from a neurosurgical perspective for surgery Recommend holding all anticoagulation until a stable [address] head is obtained - may begin DVT ppx with SQ heparin the following day Other additions or changes: None Signature: Claudia Westfall MD, PhD Date: 01/04/2023 Time: 1:24 PM CONSULT: NEUROSURGERY SERVICE Patient Name: Amaury Blank Date of : 1940 SERVICE DATE: 01/03/2023 SERVICE TIME: 4:07 PM REASON FOR CONSULT: [facility] REQUESTING PHYSICIAN: Prosper PRIMARY CARE PHYSICIAN: Elida Borges MD CHIEF COMPLAINT: left hip pain HISTORY OF PRESENT ILLNESS : Mr Blank is a very pleasant 82 year old male with a PMH below, not currently on blood thinners, but discontinued ASA81 about a week ago, fell at home this am. He states he got up to use the BR and upon going back to bed he was using his walker, turned around to sit on the bed but tripped over clothing, causing him to fall backward onto his behind. He's not sure if he struck his head. He did not lose consciousness and he immediately had hip pain. He also endorses a fall about a month ago as he had been 'weak from PNA and a recent hospital stay.' He believes he may have struck his head then but did not lose consciousness. He denies h/a, dizziness, n/v, vision changes or paresthesias. He does endorse significant left hip pain particularly with movement. PAST MEDICAL HISTORY Diagnosis Date CAD (coronary artery disease) History of GI bleed HTN (hypertension) Hyperlipidaemia Hypothyroidism PAD (peripheral artery disease) (HCC) UC (ulcerative colitis) (HCC) PAST SURGICAL HISTORY Procedure Laterality Date PAST SURGICAL HISTORY OF Right 1966 right hand PAST SURGICAL HISTORY OF Right 2004 right flank chronic inflammed tissue PAST SURGICAL HISTORY OF multiple skin bx--benign FAMILY HISTORY Problem Relation Age of Onset Colon Cancer Paternal Grandfather Breast Cancer Mother ALLERGIES Allergen Reactions Amlodipine Rash Lovastatin Hives Current Facility-Administered Medications Medication Dose Route Frequency Provider Last Rate Last Admin NaCl 0.9% iv flush bag 20 mL INTRAVENOUS PRN Joao Coe, DO NaCl 0.9% iv infusion 100 mL/hr INTRAVENOUS CONTINUOUS Joao Coe, DO 100 mL/hr at 01/03/23 1412 100 mL/hr at 01/03/23 1412 ondansetron 4 mg tab(s) (ZOFRAN) 4 mg ORAL q 6 H PRN Joao Saravanan, DO Or ondansetron (PF) 4 mg injection (ZOFRAN) 4 mg INTRAVENOUS q 6 H PRN Joao Seearnaldoaraman, DO morphine 2 mg injection 2 mg INTRAVENOUS q 3 H PRN Joao Seebonilla, DO oxyCODONE IR 5-10 mg tab(s) (ROXICODONE) 5-10 mg ORAL q 6 H PRN Joao Seeshellieman, DO acetaminophen 975 mg tab(s) (TYLENOL) 975 mg ORAL q 6 H JoaoCárdenas, DO 975 mg at 01/03/23 1412 [START ON 01/04/2023] pantoprazole 40 mg injection (PROTONIX) 40 mg INTRAVENOUS DAILY (6 AM) Joao Coe DO zinc oxide 20 % TOPICAL BID Alexia Almonte APRN.BOAT REPAIRER Current Outpatient Medications Medication Sig Dispense Refill AZATHIOPRINE (AZASAN ORAL) Take 50 mg by mouth once daily. balsalazide (COLAZAL) 750 mg capsule Take 2,250 mg by mouth three times daily. atorvastatin (LIPITOR) 40 mg tablet Take 40 mg by mouth once daily. ezetimibe (ZETIA) 10 mg tablet Take 10 mg by mouth once daily. carvedilol (COREG) 12.5 mg tablet Take 12.5 mg by mouth twice daily with meals. lisinopril (PRINIVIL) 20 mg tablet Take 20 mg by mouth twice daily. clopidogrel (PLAVIX) 75 mg tablet Take 75 mg by mouth once daily. aspirin 325 mg tablet Take 325 mg by mouth once daily. ferrous sulfate (IRON, FERROUS SULFATE,) 325 mg (65 mg iron) tablet Take 325 mg by mouth daily with breakfast. Zinc (more content not included)... Normal [facility] CONSULT HNO ID: [id number] Author: Errol Rod MD Service: Orthopaedic Surgery Author Type: Physician Type: Consults Filed: 01/04/2023 2:31 PM Note Text: I evaluated the patient and personally participated in the hernadez components. I agree with the resident's findings and plan with the following revisions and/or additions: Wound center for chronic foot wounds Signature: Errol Rod MD Service Date: 01/04/2023 Service Time: 2:30 PM ORTHOPAEDIC SURGERY HANDP Pt: AMAURY BLANK Date of Admission: 01/03/2023 Chief Complaint: Left Hip Pain HPI: 82 year old male presented to [facility] ED on 01/03/2023 as a transfer from [place] for evaluation of left hip pain. The patient states he fell backwards while trying to get back into bed this morning after getting up to pee. He says that he had immediate left hip pain and the inability to ambulate. The patient also hit his head. The patient denies numbness and tingling of the left lower extremity. He is on Plavix and Asprin. The patient denies prior pain or injury to the left hip. The patient lives at an assisted living facility and utilizes a walker for ambulation assistance at baseline. The patient denies fevers, chills, nausea, vomiting and other constitutional symptoms at this time. The patient has no additional orthopaedic complaints at this time. PAST MEDICAL HISTORY Diagnosis Date CAD (coronary artery disease) HTN (hypertension) Hyperlipidaemia UC (ulcerative colitis) (HCC) PAST SURGICAL HISTORY Procedure Laterality Date PAST SURGICAL HISTORY OF Right 1966 right hand PAST SURGICAL HISTORY OF Right 2004 right flank chronic inflammed tissue PAST SURGICAL HISTORY OF multiple skin bx--benign Allergies: Amlodipine and Lovastatin No current facility-administered medications for this encounter. Current Outpatient Medications Medication Sig AZATHIOPRINE (AZASAN ORAL) Take 50 mg by mouth once daily. balsalazide (COLAZAL) 750 mg capsule Take 2,250 mg by mouth three times daily. atorvastatin (LIPITOR) 40 mg tablet Take 40 mg by mouth once daily. ezetimibe (ZETIA) 10 mg tablet Take 10 mg by mouth once daily. carvedilol (COREG) 12.5 mg tablet Take 12.5 mg by mouth twice daily with meals. lisinopril (PRINIVIL) 20 mg tablet Take 20 mg by mouth twice daily. clopidogrel (PLAVIX) 75 mg tablet Take 75 mg by mouth once daily. aspirin 325 mg tablet Take 325 mg by mouth once daily. ferrous sulfate (IRON, FERROUS SULFATE,) 325 mg (65 mg iron) tablet Take 325 mg by mouth daily with breakfast. Zinc Gluconate 50 mg tablet Take 50 mg by mouth three times daily. FAMILY HISTORY Problem Relation Age of Onset Colon Cancer Paternal Grandfather Breast Cancer Mother Negative for family history of bleeding and clotting disorders. Social History Tobacco Use Smoking status: Former Substance Use Topics Alcohol use: Yes Drug use: No ROS: 10 pt ROS neg except in HPI O: Vitals: BP 154/64 Pulse 70 Temp 36.5 ?C (97.7 ?F) (Oral) Resp 18 Ht 177.8 cm (5' 10) Wt 79.4 kg (175 lb) SpO2 95% BMI 25.11 kg/m? Physical exam: General: AANDO x 3; NAD. Cooperative throughout entire interview. Left Lower Extremity: The extremity is shortened and externally rotated. There are no gross deformities. There are no superficial abrasions, lacerations or open wounds present over his left hip. The patient is tender to palpation along the lateral aspect of the proximal thigh. Pain on log roll. Compartments of the thigh and leg are soft and compressible. The patient tolerates passive stretch of the digits. Formal hip range of motion was not assessed due to known left hip fracture. +DF/PF/EHL motor function. SILT aguilera/sa/sp/dp/t. BCR to the digits of the foot. Secondary Survey: No TTP of any other bony prominences or joints of the upper and lower extremities bilaterally except that described above. Labs: BMP: No results found for this basename: na,k,chlor,co2,bun,creat,gl uc CBC: No results found for this basename: wbc,hb,hct,plt COAGS: No results found for this basename: aptt,inr SED RATE/CRP: No results found for this basename: wsr:*,crp:* Imaging: -XR of the left hip reviewed. Demonstrates a left intertrochanteric fracture. A/P: 82 year old male with a left intertrochanteric fracture. -Non-weightbearing of the left lower extremity -Pain control -Regular diet; NPO at 0001 on 01/04 for OR -IVF -DVT PPX: SCDs to the bilateral lower extremities; will hold DVT chemicalPPX at this time for OR on 01/04 -Medicine consult placed -Consent for surgery obtained -Tentative OR planned on 01/04 pending clearance -Case discussed with Dr. Dalia Rod, in agreement with assessment and plan Shade Rod DO Orthopaedic Surgery 01/03/2023 11:00 AM Normal [facility] CONSULT PROGon 01-03-2023 CONSULT PROG HNO ID: [id number] Author: Alexia Almonte APRN.BOAT REPAIRER Service: Wound/Ostomy Author Type: Nurse Practitioner Type: Consult Progress Note Filed: 01/03/2023 3:48 PM Note Text: WOUND CARE SERVICE CONSULT ARCADE GAME TECHNICIAN NOTE SERVICE DATE: 01/03/2023 SERVICE TIME: 1510 REASON FOR CONSULT: Consultation requested by Curt Erwin DO for an opinion regarding left foot wound. My final recommendations will be communicated back to the requesting physician by way of shared Medical record or letter to requesting physician via US mail. CHIEF COMPLAINT: pain Subjective HISTORY OF PRESENT ILLNESS: Mr. Blank is a 82 year old male who is seen today with Kathi Hernandez, Wound/industrial machine operator, and presented to hospital with complaints of left hip pain. PMH CAD, HTN, PAD. PERTINENT REVIEW OF SYSTEMS: GENERAL: denies fever PAIN ASSESSMENT: endorses pain to left hip 01/06 SKIN: left foot wound RESPIRATORY: denies SOB GI/: denies N/V PAST MEDICAL HISTORY Diagnosis Date CAD (coronary artery disease) History of GI bleed HTN (hypertension) Hyperlipidaemia Hypothyroidism PAD (peripheral artery disease) (HCC) UC (ulcerative colitis) (HCC) PAST SURGICAL HISTORY Procedure Laterality Date PAST SURGICAL HISTORY OF Right 1966 right hand PAST SURGICAL HISTORY OF Right 2004 right flank chronic inflammed tissue PAST SURGICAL HISTORY OF multiple skin bx--benign Social History Tobacco Use Smoking status: Former Substance Use Topics Alcohol use: Yes Drug use: No FAMILY HISTORY Problem Relation Age of Onset Colon Cancer Paternal Grandfather Breast Cancer Mother MEDICATIONS: Current Facility-Administered Medications Medication Dose Route Frequency NaCl 0.9% iv flush bag 20 mL INTRAVENOUS PRN NaCl 0.9% iv infusion 100 mL/hr INTRAVENOUS CONTINUOUS ondansetron 4 mg tab(s) (ZOFRAN) 4 mg ORAL q 6 H PRN Or ondansetron (PF) 4 mg injection (ZOFRAN) 4 mg INTRAVENOUS q 6 H PRN morphine 2 mg injection 2 mg INTRAVENOUS q 3 H PRN oxyCODONE IR 5-10 mg tab(s) (ROXICODONE) 5-10 mg ORAL q 6 H PRN acetaminophen 975 mg tab(s) (TYLENOL) 975 mg ORAL q 6 H [START ON 01/04/2023] pantoprazole 40 mg injection (PROTONIX) 40 mg INTRAVENOUS DAILY (6 AM) zinc oxide 20 % TOPICAL BID ALLERGIES Allergen Reactions Amlodipine Rash Lovastatin Hives Objective PHYSICAL EXAM: BP 162/68 Pulse 67 Temp 36.5 ?C (97.7 ?F) (Oral) Resp 17 Ht 177.8 cm (5' 10) Wt 79.4 kg (175 lb) SpO2 (!) 94% BMI 25.11 kg/m? General appearance: A/O male resting in cot, pleasant and cooperative. Respiratory: even and unlabored. Cardiovascular: +3 edema to left foot. Extremities: left foot wound with serous yellow drainage. Hemosiderin staining noted to BLE. Skin tears to left elbow and left lateral leg. Integumentary: Moisture noted to right buttocks, pink, macerated. DATA No data pertinent to wounds. Presenting wound information: Wound 01/03/23 1515 Venous Ulcer Foot Left (Active) Assessments 01/03/2023 3:15 PM Wound Image Site Assessment [place];Edema;Yellow Adelina-Wound Assessment Yellow-brown (Hemosiderin staining) Shape irregular Wound Length (cm) 8 cm Wound Width (cm) 4.5 cm Wound Surface Area (cm2) 36 cm2 Wound Depth (cm) 0.6 cm Wound Volume (cm3) 21.6 cm3 Drainage Description Serous;Yellow Drainage Amount Small Odor None Treatments Cleansed Dressing Contact Layer- Adaptic;Alginate;Abdominal Dressing;Kerlix Dressing Changed Changed Dressing Status Clean;Dry;Intact Active Orders Date Order Priority Status Authorizing Provider 01/03/23 1540 DRESSING CARE (SPECIFY) ([place]) Routine Active Alexia Almonte APRN.BOAT REPAIRER - Specify:: Adaptic, calcium alginate, ABD and kerlix - Specify:: Wash wound with soap and water or wound cleanser with every dressing change. Apply adaptic to any open areas on left leg cover with alginate and ABDs and secure with Kerlix. Change BID and as needed if soiled or non-adherent. Wound 01/03/23 1520 Arm Left;Lower;Posterior;Proxim al (Active) Assessments 01/03/2023 3:20 PM Wound Image Site Assessment [place];Red Adelina-Wound Assessment Intact Shape irregular Wound Length (cm) 1 cm Wound Width (cm) 3 cm Wound Surface Area (cm2) 3 cm2 Wound Depth (cm) 0.1 cm Wound Volume (cm3) 0.3 cm3 Drainage Description Sanguineous Drainage Amount Scant Odor None Treatments Cleansed Dressing Xeroform;Foam- Adhesive Dressing Changed Changed Dressing Status Clean;Dry;Intact Active Orders Date Order Priority Status Authorizing Provider 01/03/23 1542 DRESSING CARE (SPECIFY) ([place]) Routine Active Alexia Almonte APRN.BOAT REPAIRER - Specify:: xeroform to skin tears left elbow and knee - Specify:: Wash wound with soap and water or wound cleanser with every dressing change. Apply xeroform to skin tears on left lateral knee and elbow. Secure with Allevyn. Change daily and as needed if soiled or non-adherent. Wound 01/03/23 1538 Moisture Buttock (Active) Assessments 01/03/2023 3:2 (more content not included)... Normal [facility] CT BRAIN WO IVCONon 01-04-20 CT BRAIN WO IVCON * * *Final Report* * * DATE OF EXAM: Jan 03 2023 1:25PM [facility] 0504 - CT BRAIN WO IVCON / PROCEDURE REASON: Head trauma, moderate-severe * * * * Physician Interpretation * * * * EXAMINATION: CT BRAIN WO IVCON CLINICAL HISTORY: Head injury and pain secondary to a fall. History of intracranial hemorrhage. TECHNIQUE: Serial axial images without IV contrast were obtained from the vertex to the foramen magnum. MQ: [id number] CT Radiation dose: Integrated Dose-Length Product (DLP) for this visit = 804 mGy*cm CT Dose Reduction Employed: Iterative recon COMPARISON: Outside CT from earlier today RESULT: Machine Assistant (topogram) images: No additional findings. Post-operative change: None. Acute change: Relatively stable left frontal 13 mm acute parenchymal hematoma with some adjacent edema. No significant mass effect otherwise. No midline shift. Chronic change: Scattered patchy foci of low attenuation are present within supratentorial white matter which is a nonspecific finding but likely represents mild microvascular ischemia. Parenchyma: There is moderate generalized volume loss. The brain parenchyma is otherwise within normal limits for age. Ventricles: The ventricles are within normal limits of size and configuration for age. Paranasal sinuses and skull base: The visualized paranasal sinuses are grossly clear. Left posterior scalp hematoma. Alternatively, this is a sebaceous cyst. IMPRESSION: Stable left frontal parenchymal hematoma with some associated edema. Dog Or Horse Racing Official: PSCB Transcribe Date/Time: Jan 03 2023 1:31P Dictated by : JUWAN NARANJO MD This examination was interpreted and the report reviewed and electronically signed by: JUWAN NARANJO MD on Jan 03 2023 1:35PM EST [id number] Normal [facility] Determination of erythrocyte mean corpuscular volume (MCV)Ordered By: Lupe Joe on 01-03-2023 MCV (RBC) [Entitic vol] 102.4 fL 80-94 [facility] ED NOTEon 01-03-2023 ED NOTE HNO ID: [id number] Author: Tresa Hernandez RN Service: ? Author Type: Registered Nurse Type: ED Notes Filed: 01/03/2023 9:33 PM Note Text: Attempted report x1. Left on hold >5 minutes Normal [facility] ED NOTE HNO ID: [id number] Author: Crispin Addison RN Service: ? Author Type: Registered Nurse Type: ED Notes Filed: 01/03/2023 5:35 PM Note Text: Normal [facility] ED NOTE HNO ID: [id number] Author: Crispin Addison RN Service: ? Author Type: Registered Nurse Type: ED Notes Filed: 01/03/2023 5:35 PM Note Text: Mri screening form completed and faxed Normal [facility] ED NOTE HNO ID: [id number] Author: Alyssa Mao RN Service: Emergency Medicine Author Type: Registered Nurse Type: ED Notes Filed: 01/03/2023 1:13 PM Note Text: ED CT AWARE OF OUTSTANDING ORDER Normal [facility] ED NOTE HNO ID: [id number] Author: Alyssa Mao RN Service: Emergency Medicine Author Type: Registered Nurse Type: ED Notes Filed: 01/03/2023 1:16 PM Note Text: Patients cardiac leads disconnected pt placed back on monitor. Normal [facility] ED NOTE HNO ID: [id number] Author: Crispin Addison RN Service: ? Author Type: Registered Nurse Type: ED Notes Filed: 01/03/2023 10:34 AM Note Text: Patient placed on environmental monitoring specialist, patient placed on non-invasive blood pressure monitor, patient placed on continuous pulse oximetry. Alarms set and on, patient tolerating monitoring. 70SR Normal [facility] ED NOTE HNO ID: [id number] Author: Errol Pickering, Sawyer Service: ? Author Type: Healthcare Economics Manager and Cow Buyer Type: ED Notes Filed: 01/03/2023 10:29 AM Note Text: Bed: [address] [place] [address] Expected date: 01/03/23 Expected time: 10:23 AM Means of arrival: [facility] Comments: [facility] ED PROV NOTEon 01-03-2023 ED PROV NOTE HNO ID: [id number] Author: Mercedes Lai MD Service: Emergency Medicine Author Type: Physician Type: ED Provider Notes Filed: 01/13/2023 6:14 PM Note Text: ED Provider Note Patient Name: Amaury Blank : 1940 SERVICE DATE: 01/03/23 History Patient presents with: Trauma: Pt transfer from [facility] pt had fall this a.m . Pt states he lost his balaance and fell, + left hip fx and also brain bleed that is old but worsening. + hit head but did not have loc. Gcs 15 HPI Mr. Amaury Blank is a 82 year old male with PMH CAD, HTN, HLD, UC presenting today with trauma transfer from [facility] after mechanical fall. The patient was at home this morning when he lost his balance and fell down landing on his left hip. He was unable to ambulate and felt immediate pain in his left hip. At [facility], he was evaluated to have left intertrochanteric hip fracture, BMP and CBC obtained, and evidence of subacute left frontal intraparenchymal hemorrhage with surrounding vasogenic edema. Of note, the patient was evaluated at that facility on 12/[address] done at that time was read as negative, but on review after CT today, found to also demonstrate early acute focus of bleeding in that area. For this reason, the patient is transferred here for trauma evaluation. No thinners. Pain controlled prior to transfer with fentanyl. PAST MEDICAL HISTORY Diagnosis Date CAD (coronary artery disease) HTN (hypertension) Hyperlipidaemia UC (ulcerative colitis) (HCC) PAST SURGICAL HISTORY Procedure Laterality Date PAST SURGICAL HISTORY OF Right 1966 right hand PAST SURGICAL HISTORY OF Right 2004 right flank chronic inflammed tissue PAST SURGICAL HISTORY OF multiple skin bx--benign FAMILY HISTORY Problem Relation Age of Onset Colon Cancer Paternal Grandfather Breast Cancer Mother Social History Tobacco Use Smoking status: Former Smokeless tobacco: Not on file Substance and Sexual Activity Alcohol use: Yes Drug use: No Sexual activity: Not on file ALLERGIES Allergen Reactions Amlodipine Rash Lovastatin Hives Review of Systems Constitutional: Negative for chills and fever. Respiratory: Negative for cough and shortness of breath. Cardiovascular: Negative for chest pain. Gastrointestinal: Negative for abdominal pain, constipation, diarrhea, nausea and vomiting. Musculoskeletal: Positive for back pain. Neurological: Negative for syncope, weakness, light-headedness and numbness. All other systems reviewed and are negative. Physical Exam Vitals BP Pulse Temp Temp src Resp SpO2 Weight Height 01/03/23 1033 01/03/23 1031 01/03/23 1031 01/03/23 1031 01/03/23 1031 01/03/23 1031 01/03/23 1031 01/03/23 1031 154/64 70 36.5 ?C (97.7 ?F) Oral 18 95 % 79.4 kg (175 lb) 1.778 m (5' 10) Physical Exam Vitals and nursing note reviewed. Constitutional: General: He is not in acute distress. Appearance: He is not ill-appearing or diaphoretic. HENT: Head: Comments: No cephalhematoma Midface stable No Girard's sign or raccoon eyes Ears: Comments: No blood in external canals Nose: Comments: Nasal septum midline No blood in nares No rhinorrhea No nasal septal hematoma Mouth/Throat: Mouth: Mucous membranes are moist. Comments: No intraoral injury No malocclusion Oropharynx clear of blood and secretions Eyes: General: No visual field deficit or scleral icterus. Right eye: No discharge. Left eye: No discharge. Extraocular Movements: Extraocular movements intact. Conjunctiva/sclera: Conjunctivae normal. Pupils: Pupils are equal, round, and reactive to light. Comments: Pupils 4 mm to 2 mm bilaterally Neck: Comments: No midline tenderness No bony deformities or step-offs Trachea midline No JVD Cardiovascular: Rate and Rhythm: Normal rate and regular rhythm. Heart sounds: No murmur heard. No gallop. Comments: 2+ femorals, radials, DPs, PTs bilaterally Pulmonary: Effort: Pulmonary effort is normal. Breath sounds: Normal breath sounds. Comments: Bilateral chest rise Bilateral lung sounds No subcutaneous emphysema or crepitus Chest wall nontender Abdominal: General: Abdomen is flat. There is no distension. Palpations: Abdomen is soft. Tenderness: There is no abdominal tenderness. There is no guarding or rebound. Musculoskeletal: Comments: RUE: Atraumatic LUE: Atraumatic Pelvis: Stable RLE: Atraumatic. No shortening or external rotation. Negative logroll. LLE: Hip tenderness. Pain on logroll or axial load. Foot wrapped in dressing with chronic appearing wounds to dorsal foot, plantar heel. Back: No midline tenderness. No deformities or step-offs. Skin: General: Skin is warm and dry. Capillary Refill: Capillary refill takes less than 2 seconds. Coloration: Skin is not jaundiced. Findings: No rash. Neurological: General: No focal deficit present. Mental Stat (more content not included)... Normal [facility] EKGon 01-03-2023 Electrocardiogram Ventricular Rate : 7 0 BPM Atrial Rate : 70 BPM P-R Interval : 254 ms QRS Duration : 132 ms Q-T Interval : 444 ms QTC Calculation(Bazett) : 479 ms Calculated P [place] : 33 degrees Calculated R [place] : -47 degrees Calculated T [place] : 63 degrees SINUS RHYTHM WITH 1ST DEGREE A-V BLOCK LEFT AXIS DEVIATION NON-SPECIFIC INTRA-VENTRICULAR CONDUCTION BLOCK INFERIOR INFARCT , AGE UNDETERMINED ABNORMAL ECG NO PREVIOUS ECGS AVAILABLE Confirmed by MD CAMPUZANO THOMAS ([id number]) on 01/12/2023 2:55:59 PM NAME : AMAURY BLANK PID : [id number] : 1940 Gender : Male Race : ORD : Procedure Date : Jan 03 2023 18:17:18 Edit Date : Jan 12 2023 14:56:00 Diagnosis: SINUS RHYTHM WITH 1ST DEGREE A-V BLOCK LEFT AXIS DEVIATION NON-SPECIFIC INTRA-VENTRICULAR CONDUCTION BLOCK INFERIOR INFARCT , AGE UNDETERMINED ABNORMAL ECG NO PREVIOUS ECGS AVAILABLE Confirmed by MD CAMPUZANO THOMAS ([id number]) on 01/12/2023 2:55:59 PM Test Reason : Location : : [facility] Overread By : MD CAMPUZANO THOMAS Edited By : MD CAMPUZANO THOMAS Referred By : , Acquired by : DEANNA ALMAGUER [facility] HISTORY PHYSICALon 3 HISTORY PHYSICAL HNO ID: [id number] Author: Blade Cheng MD Service: General Surgery Author Type: Resident Type: HANDP Filed: 01/03/2023 5:38 PM Note Text: Attestation signed by Bing Perez MD at 01/28/2023 2:29 PM I personally saw and examined the patient on 01/03/23. I reviewed the resident's note. I agree with the resident's assessment and plan unless otherwise noted. Bing Perez MD [facility] ARRIVAL DATE: 01.03.23 ARRIVAL TIME: 10:23 INJURY DATE: 01.03.23 INJURY TIME: 0500 Subjective 82 year old male PMHx of CAD s/p CABG, HTN, COPD, A-fib, and HLD fell from ground height and hit his head when he was was trying to turn while using his walker today in the AM. Patient denies loss of consciousness. Patient lives in a [facility]p. Patient patient says he also has left hip pain. Denies pain anywhere else. Currently not on coagulation, dc'd 2-3 wks ago because low hb. Patient was admitted on December [address] a negative CT after a fall. GCS in the ED is 15. HPI/CHIEF COMPLAINT: Fall from standing height. BRIEF DESCRIPTION OF INJURIES: Bruises palpable on the back of his head, Left hip pain with movement, right shoulder pain with h LAST FLUIDS/MEAL: unknown CODE STATUS: Not discussed ALLERGIES Allergen Reactions Amlodipine Rash Lovastatin Hives (Not in a hospital admission) Immunization History Administered Date(s) Administered COVID-19 original vaccine, full dose, monovalent (MODERNA) 08/28/2020 09/25/2020 06/20/2021 PAST MEDICAL HISTORY Diagnosis Date CAD (coronary artery disease) HTN (hypertension) Hyperlipidaemia UC (ulcerative colitis) (HCC) PAST SURGICAL HISTORY Procedure Laterality Date PAST SURGICAL HISTORY OF Right 1966 right hand PAST SURGICAL HISTORY OF Right 2004 right flank chronic inflammed tissue PAST SURGICAL HISTORY OF multiple skin bx--benign Social History Tobacco Use Smoking status: Former Substance Use Topics Alcohol use: Yes Drug use: No FAMILY HISTORY Problem Relation Age of Onset Colon Cancer Paternal Grandfather Breast Cancer Mother ROS: Is the patient having any pain? Yes Left hip pain and right shoulder pain when he raises it and pain in the back of the head where a welt can be felt. Constitutional: Negative Eye/Ear/Nose: Negative Respiratory: Negative Cardiovascular: Negative GI/Liver/Biliary: Negative Genitourinary: Negative Psychiatric: Negative Neurologic: Negative Musculoskeletal: Negative Integument: Negative Endocrine: Negative Heme/Lymph: Negative Objective PRIMARY SURVEY AIRWAY: Patent BREATHING: Breath sounds equal CIRCULATION: PT/DP 2+, Radials 2+ DISABILITY: Eye: 4=Spontaneous Verbal: 5=Oriented and Converses Motor: 6=Obeys Commands Total GCS: 15=4 Resp Rate: 10 to 29=4 Syst BP: > than 89=4 REVISED TRAUMA SCORE: 12 EXPOSE / ENVIRONMENT: Warm Blankets PROCEDURES: None SECONDARY SURVEY VITALS: 01/03/23 1031 01/03/23 1033 BP: 154/64 Pulse: 70 Resp: 18 Temp: 36.5 ?C (97.7 ?F) TempSrc: Oral SpO2: 95% Weight: 79.4 kg (175 lb) Height: 177.8 cm (5' 10) NEURO: Alert AND Oriented x 3, GCS 15, Cranial Nerves II-XII grossly Intact, Moves All Extremities, Strength Symmetrical, No Sensory Deficits. HEENT: Head: No lacerations or abrasions, no bony step-offs, midface stable to palpation. bump on the back of the head can be felt with palpation Eyes: PERRL, conjunctiva/corneas without lesions, EOMI. Ears: Canals without blood or CSF drainage, TMs clear, external ears without lacerations. Nose: Septum midline, no crepitus with motion. Throat: Oral mucosa without lacerations, teeth in place, tongue without lacerations. NECK: No midline pain with palpation, no lacerations/wounds, trachea midline. RESPIRATORY: No abrasions or contusions, no crepitus, chest wall without ttp, equal excursion. Unlabored breathing on exam CARDIOVASCULAR: regular rate, good perfusion throughout ABDOMEN: Soft, non-distended, non-tender, no scars or lacerations, no rebound or guarding. No masses or organomegaly. PELVIC/PERINEAL: Pelvis stable to palpation, no blood noted at urethra meatus, gluteal contraction intact. BACK/SPINE: Thoracolumbar spinal column non-tender, no step-off or deformity noted, no external injury noted. EXTREMITIES: Arm/shoulder normal bilaterally, forearm/elbow normal bilaterally, hand/wrist normal bilaterally, thigh/hip normal bilaterally, leg/knee normal bilaterally, foot/ankle normal bilaterally. RADIOLOGICAL/OTHER TEST DATA: No orders to display PRIOR TO ARRIVAL: No Loss of Consciousness Labs: No results for input(s): NA, K, CHLOR, CO2, BUN, CREAT, GLUC, ANION, CA, MG, P, ALB, AST, ALT, ALKPHOS, TBILI, DBILI, PHOSINTL, WBC, HB, HCT, PLT, LACT, INR, PH, PCO2, PO2, (more content not included)... Normal [facility] Hematocrit Auto (Bld) [Volum e fraction]Ordered By: Lupe Joe on 01-03-2023 Hematocrit (Bld) [Volume fraction] 30.3 % 40-[address] [facility] Auto (RBC) [Mass/Vol]Or dered By: Lupe Joe on 01-03-2023 MCHC (RBC) [Mass/Vol] 31.4 g/dL 32-36 [facility] NT-proBNP SerPl-mCncon 01-03 Natriuretic peptide.B prohormone N-Terminal [Mass/Vol] 4837 pg/mL High <450 [facility] Comment on above: Order Comment: Speci men Type: BLOOD SPECIMEN Ordering Facility: [facility] Address: [address] [place] [address] Performed By: #### 5 8410-2 #### [facility] CLIA [id number] [address] OF [facility] No Panel InformationOrdered By: Lupe Joe on 01-03-2023 32.1 pg 27.0-32.0 [facility] 14.1 % 11.6-14.6 [facility] 53.4 fl 35.1-43.9 [facility] 0.700 % 0.0-0.9 [facility] 0 % 0-5 [facility] 29 mL/min >60 [facility] 35 mL/min >60 [facility] 25.94 ml/min [facility] 17.9 RATIO 10-20 [facility] 28.0 mmol/L 21.0-32.0 [facility] POTASSIUM BLDon 01-03-2023 Potassium [Moles/Vol] 5.3 mmol/L High 3.7-5.1 [facility] Comment on above: Order Comment: Speci men Type: BLOOD SPECIMEN Ordering Facility: [facility] Address: [address] [place] [address] Performed By: #### 5 8410-2 #### [facility] CLIA [id number] [address] OF [place] PT panel Coag (PPP)on 2022 INR Coag (PPP) [Relative time] 1.0 {INR} Normal 0.9-1.3 [facility] Comment on above: Order Comment: Speci men Type: BLOOD SPECIMEN Ordering Facility: [facility] Address: [address] [place] [id number] Result Comment: Bettie min K Antagonist (VKA) Therapeutic Range: INR 2 to 3 (Target INR of 2.5) Note: For patients treated with VKA drugs, such as warfarin, the [employer] 2012 Guideline recommends a therapeutic INR range of 2 to 3 (target INR of 2.5). This recommendation includes high-risk patients with antiphospholipid syndrome with previous arterial or venous thromboembolism, current-generation mechanical or bioprosthetic aortic heart valve replacement. Note: Patients with mechanical aortic valve replacement and additional risk factors for thromboembolic events (atrial fibrillation, previous thromboembolism, LV dysfunction, hypercoagulable conditions) or an older generation mechanical AVR (i.e., ball in-Cage) or any mechanical MVR should have a INR therapeutic range of 2.5 to 3.5 (target INR of 3). Fina GH, et al. Chest 2012, 141:7S-47S Errol RA, et al. [facility] 2017, 70: 252-289 Performed By: #### 5 8410-2 #### [facility] CLIA [id number] 1 [place] [address] [place] PT Coag (PPP) [Time] 10.5 s Normal 9.7-13.0 [facility] Comment on above: Order Comment: Speci men Type: BLOOD SPECIMEN Ordering Facility: [facility] Address: [address] [place] [phone] Performed By: #### 5 8410-2 #### [facility] CLIA [id number] [address] [place] Platelets bldOrdered By: Rem us Ungur on 01-03-2023 Platelets (Bld) [#/Vol] 203 10*3/uL 150-450 [facility] Serum or plasma calcium elvia urement (mass/volume)Ordered By: Remus Ungur on 01-03-2023 Calcium [Mass/Vol] 8.8 mg/dL 8.5-10.1 [facility] Serum or plasma creatinine m easurement (mass/volume)Ordered By: Remus Ungur on 01-03-2023 Creatinine [Mass/Vol] 2.29 mg/dL 0.70-1.30 [facility] Serum or plasma urea nitroge n measurement (mass/volume)Ordered By: Remus Ungur on 01-03-2023 Urea nitrogen [Mass/Vol] 41 mg/dL 7-18 [facility] Thin prep Papanicolaou smear with manual screeningOrdered By: Lupe Joe on 01-03-2023 Thin prep Papanicolaou smear with manual screening 4 5-15 [facility] aPTT PPPon 01-03-2023 aPTT Coag (PPP) [Time] 27.4 s Normal 23.0-32.4 [facility] Comment on above: Order Comment: Speci men Type: BLOOD SPECIMEN Ordering Facility: [facility] Address: [address] [place] [phone] Performed By: #### 5 8410-2 #### [facility] CLIA [id number] 1 [place] [address] [place] [facility] Absolute lymphocyte countOrd ered By: Paco Norman on 01-01-2023 Lymphocytes Auto (Unsp spec) [#/Vol] 0.83 10*3/uL 0.83-4.51 [facility] Basophil percentageOrdered B y: Paco Norman on 01-01-2023 Basophil percentage 82 mg/dL 74-106 [facility] Basophil percentage 140 mmol/L 136-145 [facility] Basophil percentage 4.3 mmol/L 3.5-5.1 [facility] Basophil percentage 110 mmol/L 98-107 [facility] Basophils (Bld) [#/Vol] 4.8 10*3/uL 4.4-11.0 [facility] Basophils (Bld) [#/Vol] 3.4 10*3/uL 2.0-7.7 [facility] Basophils/100 WBC (Bld) 70.0 % 47-70 [facility] Basophils/100 WBC (Bld) 2.9 % 0-5 [facility] Basophils/100 WBC (Bld) 0.4 % 0-1 [facility] Blood erythrocytes count (nu mber/volume)Ordered By: Paco Norman on 01-01-2023 RBC (Bld) [#/Vol] 2.75 10*6/uL 4.6-6.2 [facility] Blood hemoglobin measurement (mass/volume)Ordered By: Paco Norman on 01-01-2023 Hemoglobin (Bld) [Mass/Vol] 9.0 g/dL 13.0-16.5 [facility] Blood lymphocytes/100 leukoc ytesOrdered By: Paco Norman on 01-01-2023 Lymphocytes/100 WBC (Bld) 17.3 % 19-41 [facility] Blood monocytes/100 leukocyt esOrdered By: Paco Norman on 01-01-2023 Monocytes/100 WBC (Bld) 9.2 % 0-10 [facility] Blood platelet mean volumeOr dered By: Paco Norman on 01-01-2023 Platelet mean volume (Bld) [Entitic vol] 9.6 fL 6.2-12.0 [facility] Determination of erythrocyte mean corpuscular volume (MCV)Ordered By: Paco Norman on 01-01-2023 MCV (RBC) [Entitic vol] 102.9 fL 80-94 [facility] Hematocrit Auto (Bld) [Volum e fraction]Ordered By: Paco Norman on 01-01-2023 Hematocrit (Bld) [Volume fraction] 28.3 % 40-54 [facility] MCHC Auto (RBC) [Mass/Vol]Or dered By: Paco Norman on 01-01-2023 MCHC (RBC) [Mass/Vol] 31.8 g/dL 32-36 [facility] No Panel InformationOrdered By: Paco Norman on 01-01-2023 32.7 pg 27.0-32.0 [facility] 14.2 % 11.6-14.6 [facility] 54.3 fl 35.1-43.9 [facility] 0.200 % 0.0-0.9 [facility] 0 % 0-5 [facility] 30 mL/min >60 [facility] 36 mL/min >60 [facility] 19.1 RATIO 10-20 [facility] 26.0 mmol/L 21.0-32.0 [facility] Platelets bldOrdered By: Rajendra Norman on 01-01-2023 Platelets (Bld) [#/Vol] 177 10*3/uL 150-450 [facility] Serum or plasma calcium elvia urement (mass/volume)Ordered By: Paco Norman on 01-01-2023 Calcium [Mass/Vol] 8.6 mg/dL 8.5-10.1 [facility] Serum or plasma creatinine m easurement (mass/volume)Ordered By: Paco Norman on 01-01-2023 Creatinine [Mass/Vol] 2.25 mg/dL 0.70-1.30 [facility] Serum or plasma urea nitroge n measurement (mass/volume)Ordered By: Riazmastersondel Norman on 01-01-2023 Urea nitrogen [Mass/Vol] 43 mg/dL 7-18 [facility] Thin prep Papanicolaou smear with manual screeningOrdered By: Paco Norman on 01-01-2023 Thin prep Papanicolaou smear with manual screening 4 5-15 [facility] Absolute lymphocyte countOrd ered By: Paco Norman on 12-24-2022 Lymphocytes Auto (Unsp spec) [#/Vol] 0.80 10*3/uL 0.83-4.51 [facility] Bacteria identified Cx Nom ( Wound)Ordered By: Paco Norman on 12-24-2022 Routine wound culture Stenotrophomonas maltophilia [facility] Routine wound culture Corynebacterium jeikeium [facility] Basophil percentageOrdered B y: Paco Norman on 12-24-2022 Basophil percentage 88 mg/dL 74-106 [facility] Basophil percentage 5.3 g/dL 6.4-8.2 [facility] Basophil percentage 0.50 mg/dL 0.20-1.00 [facility] Basophil percentage 105 mg/dL <200 [facility] Basophil percentage 61 mg/dL <199 [facility] Basophil percentage 141 mmol/L 136-145 [facility] Basophil percentage 4.1 mmol/L 3.5-5.1 [facility] Basophil percentage 109 mmol/L 98-107 [facility] Basophils (Bld) [#/Vol] 6.6 10*3/uL 4.4-11.0 [facility] Basophils (Bld) [#/Vol] 4.9 10*3/uL 2.0-7.7 [facility] Basophils/100 WBC (Bld) 0.6 % 0-1 [facility] Basophils/100 WBC (Bld) 74.4 % 47-70 [facility] Basophils/100 WBC (Bld) 3.2 % 0-5 [facility] Bilirubin [Mass/Vol] 0.50 mg/dL 0.20-1.00 [facility] Comment on above: For patients on eltr ombopag therapy, use of Dimension [place] TBIL is not recommended. Chloride [Moles/Vol] 109 mmol/L 98-107 [facility] Cholesterol [Mass/Vol] 105 mg/dL <200 [facility] Comment on above: <200 mg/dL Desirable 200-240 mg/dL Borderline >240 mg/dL High Risk Eosinophils/100 WBC (Bld) 3.2 % 0-5 [facility] Glucose [Mass/Vol] 88 mg/dL 74-106 [facility] Neutrophils (Bld) [#/Vol] 4.9 10*3/uL 2.0-7.7 [facility] Neutrophils/100 WBC (Bld) 74.4 % 47-70 [facility] Potassium [Moles/Vol] 4.1 mmol/L 3.5-5.1 [facility] Protein [Mass/Vol] 5.3 g/dL 6.4-8.2 [facility] Sodium [Moles/Vol] 141 mmol/L 136-145 [facility] Triglyceride [Mass/Vol] 61 mg/dL <199 [facility] Comment on above: The drugs N-Acetylcy steine and Metamizole may falsely depress this assay.Serum Triglycerides Reference Interval Normal <150 mg/dL Borderline high 150 - 199 mg/dL High 200 - 499 mg/dL Very High > or = 500 mg/dL WBC (Bld) [#/Vol] 6.6 10*3/uL 4.4-11.0 [facility] Blood erythrocytes count (nu mber/volume)Ordered By: Paco Norman on 12-24-2022 RBC (Bld) [#/Vol] 2.93 10*6/uL 4.6-6.2 [facility] Blood hemoglobin measurement (mass/volume)Ordered By: Paco Norman on 12-24-2022 Hemoglobin (Bld) [Mass/Vol] 9.7 g/dL 13.0-16.5 [facility] Blood lymphocytes/100 leukoc ytesOrdered By: Paco Norman on 12-24-2022 Lymphocytes/100 WBC (Bld) 12.1 % 19-41 [facility] Blood monocytes/100 leukocyt esOrdered By: Paco Norman on 12-24-2022 Monocytes/100 WBC (Bld) 9.1 % 0-10 [facility] Blood platelet mean volumeOr dered By: Paco Norman on 12-24-2022 Platelet mean volume (Bld) [Entitic vol] 10.2 fL 6.2-12.0 [facility] Determination of erythrocyte mean corpuscular volume (MCV)Ordered By: Paco Norman on 12-24-2022 MCV (RBC) [Entitic vol] 103.8 fL 80-94 [facility] Gram stain for investigation of transfusion reactionOrdered By: Paco Norman on 12-24-2022 Microscopic observation Gram stain Nom (Unsp spec) [facility] Hematocrit Auto (Bld) [Volum e fraction]Ordered By: Paco Norman on 12-24-2022 Hematocrit (Bld) [Volume fraction] 30.4 % 40-54 [facility] - Chemistry and C hemistry - challengeOrdered By: Paco Norman on 12-24-2022 ALP [Catalytic activity/Vol] 89 U/L 45-117 [facility] ALT [Catalytic activity/Vol] 19 U/L 16-61 [facility] CO2 [Moles/Vol] 26.0 mmol/L 21.0-32.0 [facility] Globulin (S) [Mass/Vol] 3.1 g/dL 2.2-4.2 [facility] Urea nitrogen/Creatinine [Mass ratio] 32.7 mg/mg 10-20 [facility] - Hematology and Cell countsOrdered By: Paco Norman on 12-24-2022 Erythrocyte distribution width (RBC) [Entitic vol] 56.1 fL 35.1-43.9 [facility] Erythrocyte distribution width (RBC) [Ratio] 14.6 % 11.6-14.6 [facility] Immature granulocytes/100 WBC (Bld) 0.600 % 0.0-0.9 [facility] Comment on above: IG% - Immature Granu locytes (promyelocytes, myelocytes and metamyelocytes) > 1% indicates that a LEFT SHIFT is Present. MCH (RBC) [Entitic mass] 33.1 pg 27.0-32.0 [facility] Nucleated RBC/100 WBC (Bld) [Ratio] 0 % 0-5 [facility] MCHC Auto (RBC) [Mass/Vol]Or dered By: Paco Norman on 12-24-2022 MCHC (RBC) [Mass/Vol] 31.9 g/dL 32-36 [facility] No Panel InformationOrdered By: Paco Norman on 12-24-2022 Estimated GFR (MDRD) Amer 42 mL/min >60 [facility] Comment on above: GFR Calc Estimated GFR (MDRD) Non-Af Amer 35 mL/min >60 [facility] Comment on above: Non- GFR Calc 33.1 pg 27.0-32.0 [facility] 14.6 % 11.6-14.6 [facility] 56.1 fl 35.1-43.9 [facility] 0.600 % 0.0-0.9 [facility] 0 % 0-5 [facility] 35 mL/min >60 [facility] 42 mL/min >60 [facility] 32.7 RATIO 10-20 [facility] 3.1 g/dL 2.2-4.2 [facility] 89 U/L 45-117 [facility] 19 U/L 16-61 [facility] 26.0 mmol/L 21.0-32.0 [facility] Platelets bldOrdered By: Rajendra Norman on 12-24-2022 Platelets (Bld) [#/Vol] 144 10*3/uL 150-450 [facility] Serum or plasma albumin elvia urement (mass/volume)Ordered By: Paco Norman on 12-24-2022 Albumin [Mass/Vol] 2.2 g/dL 3.2-5.0 [facility] Serum or plasma albumin/glob ulin mass ratioOrdered By: Paco Norman on 12-24-2022 Albumin/Globulin [Mass ratio] 0.7 {ratio} 0.9-2.4 [facility] Serum or plasma calcium elvia urement (mass/volume)Ordered By: Paco Norman on 12-24-2022 Calcium [Mass/Vol] 9.0 mg/dL 8.5-10.1 [facility] Serum or plasma cholesterol in HDL measurement (mass/volume)Ordered By: Paco Norman on 12-24-2022 Cholesterol in HDL [Mass/Vol] 48 mg/dL >40 [facility] Comment on above: The drugs N-Acetylcy steine and Metamizole may falsely depress this assay. Reference Range HDL <40 mg/dL Low HDL Cholesterol HDL >or= 60 mg/dL High HDL Cholesterol Serum or plasma cholesterol in VLDL measurement (mass/volume)Ordered By: Paco Norman on 12-24-2022 Cholesterol in VLDL [Mass/Vol] 12 mg/dL 5-40 [facility] Serum or plasma creatinine m easurement (mass/volume)Ordered By: Paco Norman on 12-24-2022 Creatinine [Mass/Vol] 1.96 mg/dL 0.70-1.30 [facility] Comment on above: The validity of the calculated GFR & GFRAA in patients over 70 years has not been determined. Clinical correlation is essential. Serum or plasma low density lipoprotein (LDL) cholesterol measurement (mass/volume)Ordered By: Paco Norman on 12-24-2022 Cholesterol in LDL [Mass/Vol] 45 mg/dL 0-130 [facility] Serum or plasma urea nitroge n measurement (mass/volume)Ordered By: Paco Norman on 12-24-2022 Urea nitrogen [Mass/Vol] 64 mg/dL 7-18 [facility] Thin prep Papanicolaou smear with manual screeningOrdered By: Paco Norman on 12-24-2022 Thin prep Papanicolaou smear with manual screening 18 U/L 15-37 [facility] Thin prep Papanicolaou smear with manual screening 6 5-15 [facility] Serum or plasma carcinoembry onic antigen measurement (mass/volume)Ordered By: Irving Horowitz on 12-21-2022 Carcinoembryonic Ag [Mass/Vol] 2.0 ng/mL 0.0-4.7 [facility] Comment on above: Nonsmokers <3.9 Smok ers <5.6[employer] Electrochemiluminescence Immunoassay(ECLIA)Values obtained with different assay methods or kitscannot be used interchangeably. Results cannot beinterpreted as absolute evidence of the presence orabsence of malignant disease. Serum or plasma gastrin elvia urement (mass/volume)Ordered By: Irving Horowitz on 12-21-2022 Gastrin [Mass/Vol] 439 pg/mL 0-115 [facility] Comment on above: Siemens Pickataleulite 200 0 Immunochemiluminometric assay (ICMA)Values obtained with different assay methods or kits cannotbe used interchangeably. Results cannot be interpreted asabsolute evidence of the presence or absence of malignantdisease.Performed at: - [facility] [id number] Director: Amaury Raya PhD, Phone: [phone] at: [facility] [id number] Director: Camilla Ochoa MD, Phone: [phone] Absolute lymphocyte countOrd ered By: Dr. Hale on 12-19-2022 Lymphocytes Auto (Unsp spec) [#/Vol] 0.78 10*3/uL 0.83-4.51 [facility] Basophil percentageOrdered B y: Jesu Hale on 12-19-2022 Basophil percentage 133 mg/dL 74-106 [facility] Basophil percentage 140 mmol/L 136-145 [facility] Basophil percentage 4.3 mmol/L 3.5-5.1 [facility] Basophil percentage 105 mmol/L 98-107 [facility] Basophils (Bld) [#/Vol] 7.5 10*3/uL 4.4-11.0 [facility] Basophils (Bld) [#/Vol] 5.9 10*3/uL 2.0-7.7 [facility] Basophils/100 WBC (Bld) 78.6 % 47-70 [facility] Basophils/100 WBC (Bld) 1.9 % 0-5 [facility] Basophil percentageOrdered B y: Dr. Hale on 12-19-2022 Basophils/100 WBC (Bld) 0.3 % 0-1 [facility] Chloride [Moles/Vol] 105 mmol/L 98-107 [facility] Eosinophils/100 WBC (Bld) 1.9 % 0-5 [facility] Glucose [Mass/Vol] 133 mg/dL 74-106 [facility] Comment on above: Fasting Glucose resu lt greater than or equal to 126 mg/dL suggests DIABETES MELLITUS per A.D.A. criteria. Neutrophils (Bld) [#/Vol] 5.9 10*3/uL 2.0-7.7 [facility] Neutrophils/100 WBC (Bld) 78.6 % 47-70 [facility] Potassium [Moles/Vol] 4.3 mmol/L 3.5-5.1 [facility] Sodium [Moles/Vol] 140 mmol/L 136-145 [facility] WBC (Bld) [#/Vol] 7.5 10*3/uL 4.4-11.0 [facility] Blood erythrocytes count (nu mber/volume)Ordered By: Dr. Hale on 12-19-2022 RBC (Bld) [#/Vol] 3.27 10*6/uL 4.6-6.2 [facility] Blood hemoglobin measurement (mass/volume)Ordered By: Dr. Hale on 12-19-2022 Hemoglobin (Bld) [Mass/Vol] 10.6 g/dL 13.0-16.5 [facility] Blood lymphocytes/100 leukoc ytesOrdered By: Dr. Hale on 12-19-2022 Lymphocytes/100 WBC (Bld) 10.4 % 19-41 [facility] Blood monocytes/100 leukocyt esOrdered By: Dr. Hale on 12-19-2022 Monocytes/100 WBC (Bld) 8.0 % 0-10 [facility] Blood platelet mean volumeOr dered By: Dr. Hale on 12-19-2022 Platelet mean volume (Bld) [Entitic vol] 10.0 fL 6.2-12.0 [facility] Determination of erythrocyte mean corpuscular volume (MCV)Ordered By: Dr. Hale on 12-19-2022 MCV (RBC) [Entitic vol] 100.6 fL 80-94 [facility] Hematocrit Auto (Bld) [Volum e fraction]Ordered By: Dr. Hale on 12-19-2022 Hematocrit (Bld) [Volume fraction] 32.9 % 40-54 [facility] - Chemistry and C hemistry - challengeOrdered By: Dr. Hale on 12-19-2022 CO2 [Moles/Vol] 29.0 mmol/L 21.0-32.0 [facility] Urea nitrogen/Creatinine [Mass ratio] 45.6 mg/mg 10-20 [facility] - Hematology and Cell countsOrdered By: Dr. Hale on 12-19-2022 Erythrocyte distribution width (RBC) [Entitic vol] 62.8 fL 35.1-43.9 [facility] Erythrocyte distribution width (RBC) [Ratio] 16.9 % 11.6-14.6 [facility] Immature granulocytes/100 WBC (Bld) 0.800 % 0.0-0.9 [facility] Comment on above: IG% - Immature Granu locytes (promyelocytes, myelocytes and metamyelocytes) > 1% indicates that a LEFT SHIFT is Present. MCH (RBC) [Entitic mass] 32.4 pg 27.0-32.0 [facility] Nucleated RBC/100 WBC (Bld) [Ratio] 0 % 0-5 [facility] MCHC Auto (RBC) [Mass/Vol]Or dered By: Dr. Hale on 12-19-2022 MCHC (RBC) [Mass/Vol] 32.2 g/dL 32-36 [facility] No Panel InformationOrdered By: Dr. Hale on 12-19-2022 Estimated Creatinine Clearance Calc 26.47 ml/min [facility] Estimated GFR (MDRD) Amer 36 mL/min >60 [facility] Comment on above: GFR Calc Estimated GFR (MDRD) Non-Af Amer 30 mL/min >60 [facility] Comment on above: Non- GFR Calc No Panel InformationOrdered By: Jesu Hale on 12-19-2022 32.4 pg 27.0-32.0 [facility] 16.9 % 11.6-14.6 [facility] 62.8 fl 35.1-43.9 [facility] 0.800 % 0.0-0.9 [facility] 0 % 0-5 [facility] 30 mL/min >60 [facility] 36 mL/min >60 [facility] 26.47 ml/min [facility] 45.6 RATIO 10-20 [facility] 29.0 mmol/L 21.0-32.0 [facility] Platelets bldOrdered By: Dr. Hale on 12-19-2022 Platelets (Bld) [#/Vol] 145 10*3/uL 150-450 [facility] Serum or plasma calcium elvia urement (mass/volume)Ordered By: Dr. Hale on 12-19-2022 Calcium [Mass/Vol] 9.3 mg/dL 8.5-10.1 [facility] Serum or plasma creatinine m easurement (mass/volume)Ordered By: Dr. Hale on 12-19-2022 Creatinine [Mass/Vol] 2.26 mg/dL 0.70-1.30 [facility] Comment on above: The validity of the calculated GFR & GFRAA in patients over 70 years has not been determined. Clinical correlation is essential. Serum or plasma urea nitroge n measurement (mass/volume)Ordered By: Dr. Hale on 12-19-2022 Urea nitrogen [Mass/Vol] 103 mg/dL 7-18 [facility] Comment on above: Critical Result(s) C alled at: 09:10:17 12/19/2022 by: Jackie Moreno. Results read back by same. Thin prep Papanicolaou smear with manual screeningOrdered By: Dr. Hale on 12-19-2022 Thin prep Papanicolaou smear with manual screening 6 5-15 [facility] Absolute lymphocyte countOrd ered By: Dr. Hale on 12-18-2022 Lymphocytes Auto (Unsp spec) [#/Vol] 0.86 10*3/uL 0.83-4.51 [facility] Basophil percentageOrdered B y: Dr. Hale on 12-18-2022 Basophils/100 WBC (Bld) 0.3 % 0-1 [facility] Chloride [Moles/Vol] 103 mmol/L 98-107 [facility] Eosinophils/100 WBC (Bld) 1.7 % 0-5 [facility] Glucose [Mass/Vol] 98 mg/dL 74-106 [facility] Neutrophils (Bld) [#/Vol] 4.5 10*3/uL 2.0-7.7 [facility] Neutrophils/100 WBC (Bld) 70.1 % 47-70 [facility] Potassium [Moles/Vol] 4.5 mmol/L 3.5-5.1 [facility] Sodium [Moles/Vol] 139 mmol/L 136-145 [facility] WBC (Bld) [#/Vol] 6.5 10*3/uL 4.4-11.0 [facility] Blood erythrocytes count (nu mber/volume)Ordered By: Dr. Hale on 12-18-2022 RBC (Bld) [#/Vol] 2.07 10*6/uL 4.6-6.2 [facility] Blood hemoglobin measurement (mass/volume)Ordered By: Dr. Hale on 12-18-2022 Hemoglobin (Bld) [Mass/Vol] 7.0 g/dL 13.0-16.5 [facility] Blood lymphocytes/100 leukoc ytesOrdered By: Dr. Hale on 12-18-2022 Lymphocytes/100 WBC (Bld) 13.3 % 19-41 [facility] Blood monocytes/100 leukocyt esOrdered By: Dr. Hale on 12-18-2022 Monocytes/100 WBC (Bld) 13.8 % 0-10 [facility] Blood platelet mean volumeOr dered By: Dr. Hale on 12-18-2022 Platelet mean volume (Bld) [Entitic vol] 9.9 fL 6.2-12.0 [facility] Determination of erythrocyte mean corpuscular volume (MCV)Ordered By: Dr. Hale on 12-18-2022 MCV (RBC) [Entitic vol] 104.8 fL 80-94 [facility] Hematocrit Auto (Bld) [Volum e fraction]Ordered By: Dr. Hale on 12-18-2022 Hematocrit (Bld) [Volume fraction] 21.7 % 40-54 [facility] - Chemistry and C hemistry - challengeOrdered By: Dr. Hale on 12-18-2022 CO2 [Moles/Vol] 30.0 mmol/L 21.0-32.0 [facility] Urea nitrogen/Creatinine [Mass ratio] 48.7 mg/mg 10-20 [facility] - Hematology and Cell countsOrdered By: Dr. Hale on 12-18-2022 Erythrocyte distribution width (RBC) [Entitic vol] 54.2 fL 35.1-43.9 [facility] Erythrocyte distribution width (RBC) [Ratio] 14.3 % 11.6-14.6 [facility] Immature granulocytes/100 WBC (Bld) 0.800 % 0.0-0.9 [facility] Comment on above: IG% - Immature Granu locytes (promyelocytes, myelocytes and metamyelocytes) > 1% indicates that a LEFT SHIFT is Present. MCH (RBC) [Entitic mass] 33.8 pg 27.0-32.0 [facility] Nucleated RBC/100 WBC (Bld) [Ratio] 0 % 0-5 [facility] MCHC Auto (RBC) [Mass/Vol]Or dered By: Dr. Hale on 12-18-2022 MCHC (RBC) [Mass/Vol] 32.3 g/dL 32-36 [facility] No Panel InformationOrdered By: Dr. Hale on 12-18-2022 Estimated Creatinine Clearance Calc 25.78 ml/min [facility] Estimated GFR (MDRD) Amer 35 mL/min >60 [facility] Comment on above: GFR Calc Estimated GFR (MDRD) Non-Af Amer 29 mL/min >60 [facility] Comment on above: Non- GFR Calc Platelets bldOrdered By: Dr. Hale on 12-18-2022 Platelets (Bld) [#/Vol] 149 10*3/uL 150-450 [facility] Serum or plasma calcium elvia urement (mass/volume)Ordered By: Dr. Hale on 12-18-2022 Calcium [Mass/Vol] 8.6 mg/dL 8.5-10.1 [facility] Serum or plasma creatinine m easurement (mass/volume)Ordered By: Dr. Hale on 12-18-2022 Creatinine [Mass/Vol] 2.32 mg/dL 0.70-1.30 [facility] Comment on above: The validity of the calculated GFR & GFRAA in patients over 70 years has not been determined. Clinical correlation is essential. Serum or plasma urea nitroge n measurement (mass/volume)Ordered By: Dr. Hale on 12-18-2022 Urea nitrogen [Mass/Vol] 113 mg/dL 7 [facility] Comment on above: Critical Result(s) C alled at: 06:35:35 12/18/2022 by: Delores Palomo To Jordin Ojeda RN ([facility]). Results read back by same. Thin prep Papanicolaou smear with manual screeningOrdered By: Dr. Hale on 12-18-2022 Thin prep Papanicolaou smear with manual screening 6 5-15 [facility] Lower GI hemoglobin IA Ql (S tl)Ordered By: Jesu Hale on 12-17-2022 Stool Occult Blood (OSCAR) Positive [facility] Stool gastrointestinal hemoglobin detection by immunologic method Positive [facility] Lower GI hemoglobin IA Ql (S tl)Ordered By: Dr. Hale on 12-17-2022 Stool Occult Blood (OSCAR) Positive [facility] - Chemistry and C hemistry - challengeOrdered By: Jackie Myrick on 12-16-2022 Magnesium [Mass/Vol] 2.1 mg/dL 1.6-2.6 [facility] No Panel InformationOrdered By: Jackie Myrick on 12-16-2022 2.1 mg/dL 1.6-2.6 [facility] COVID-19 virus antigen assay Ordered By: Jesu Hale on 12-07-2022 SARS-CoV-2 (COVID-19) Ag IA.rapid Ql (Resp) [facility] COVID-19 virus antigen assay Ordered By: Dr. Hale on 12-07-2022 SARS-CoV-2 (COVID-19) Ag IA.rapid Ql (Resp) [facility] Basophil percentageOrdered B y: Jesu Hale on 12-06-2022 Basophil percentage 6.3 g/dL 6.4-8.2 [facility] Basophil percentage 0.40 mg/dL 0.20-1.00 [facility] Basophil percentageOrdered B y: Dr. Hale on 12-06-2022 Bilirubin [Mass/Vol] 0.40 mg/dL 0.20-1.00 [facility] Comment on above: For patients on eltr ombopag therapy, use of Dimension [place] TBIL is not recommended. Protein [Mass/Vol] 6.3 g/dL 6.4-8.2 [facility] - Chemistry and C hemistry - challengeOrdered By: Dr. Hale on 12-06-2022 ALP [Catalytic activity/Vol] 159 U/L 45-117 [facility] [facility] [Catalytic activity/Vol] 78 U/L [facility] Globulin (S) [Mass/Vol] 3.7 g/dL 2.2-4.2 [facility] No Panel InformationOrdered By: Jesu Hale on 12-06-2022 3.7 g/dL 2.2-4.2 [facility] 159 U/L 45-117 [facility] 78 U/L [facility] Serum or plasma albumin elvia urement (mass/volume)Ordered By: Dr. Hale on 12-06-2022 Albumin [Mass/Vol] 2.6 g/dL 3.2-5.0 [facility] Serum or plasma albumin/glob ulin mass ratioOrdered By: Dr. Hale on 12-06-2022 Albumin/Globulin [Mass ratio] 0.7 {ratio} 0.9-2.4 [facility] Thin prep Papanicolaou smear with manual screeningOrdered By: Dr. Hale on 12-06-2022 Thin prep Papanicolaou smear with manual screening 51 U/L 15-37 [facility] Blood manual differential co mment interpretation (narrative result)Ordered By: Dr. Hale on 12-05-2022 Manual differential comment Eric (Bld) [Interp] SCANNED [facility] Comment on above: LYMPHOPENIA NOTED Hypochromatic red blood cell detectionOrdered By: Dr. Hale on 12-05-2022 Hypochromia Ql (Bld) RARE [facility] Laboratory - Hematology and Cell countsOrdered By: Dr. Hale on 12-05-2022 Anisocytosis Ql (Bld) 2+ [facility] Macrocytes detectionOrdered By: Dr. Hale on 12-05-2022 Macrocytes Ql (Bld) 2+ [facility] No Panel InformationOrdered By: Jesu Hale on 12-05-2022 2+ [facility] Blood platelet adequacy dete ction by light microscopyOrdered By: Dr. Hale on 12-04-2022 Platelets LM Ql (Bld) MOD DEC ADEQ [facility] Laboratory - Microbiology an d Antimicrobial susceptibilityOrdered By: Dr. 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 Absolute lymphocyte countOrd ered By: Dr. Castaneda on 12-03-2022 Lymphocytes Auto (Unsp spec) [#/Vol] 0.42 10*3/uL 0.83-4.51 [facility] Basophil percentageOrdered B y: Sammie Castaneda on 12-03-2022 Basophil percentage 121 mg/dL 74-106 [facility] Basophil percentage 4.9 g/dL 6.4-8.2 [facility] Basophil percentage 0.50 mg/dL 0.20-1.00 [facility] Basophil percentage 138 mmol/L 136-145 [facility] Basophil percentage 3.4 mmol/L 3.5-5.1 [facility] Basophil percentage 112 mmol/L 98-107 [facility] Basophils (Bld) [#/Vol] 5.4 10*3/uL 4.4-11.0 [facility] Basophils (Bld) [#/Vol] 4.2 10*3/uL 2.0-7.7 [facility] Basophils/100 WBC (Bld) 78.1 % 47-70 [facility] Basophils/100 WBC (Bld) 0.7 % 0-5 [facility] Basophil percentageOrdered B y: Dr. Castaneda on 12-03-2022 Basophils/100 WBC (Bld) 0.2 % 0-1 [facility] Bilirubin [Mass/Vol] 0.50 mg/dL 0.20-1.00 [facility] Comment on above: For patients on eltr ombopag therapy, use of Dimension [place] TBIL is not recommended. Chloride [Moles/Vol] 112 mmol/L 98-107 [facility] Eosinophils/100 WBC (Bld) 0.7 % 0-5 [facility] Glucose [Mass/Vol] 121 mg/dL 74-106 [facility] Comment on above: Fasting Glucose resu lt from 100 to 125 mg/dL suggests IMPAIRED HOMEOSTASIS per A.D.A. criteria. Neutrophils (Bld) [#/Vol] 4.2 10*3/uL 2.0-7.7 [facility] Neutrophils/100 WBC (Bld) 78.1 % 47-70 [facility] Potassium [Moles/Vol] 3.4 mmol/L 3.5-5.1 [facility] Protein [Mass/Vol] 4.9 g/dL 6.4-8.2 [facility] Sodium [Moles/Vol] 138 mmol/L 136-145 [facility] WBC (Bld) [#/Vol] 5.4 10*3/uL 4.4-11.0 [facility] Blood erythrocytes count (nu mber/volume)Ordered By: Dr. Castaneda on 12-03-2022 RBC (Bld) [#/Vol] 2.50 10*6/uL 4.6-6.2 [facility] Blood hemoglobin measurement (mass/volume)Ordered By: Dr. Castaneda on 12-03-2022 Hemoglobin (Bld) [Mass/Vol] 8.7 g/dL 13.0-16.5 [facility] Blood lymphocytes/100 leukoc ytesOrdered By: Dr. Castaneda on 12-03-2022 Lymphocytes/100 WBC (Bld) 7.7 % 19-41 [facility] Blood manual differential co mment interpretation (narrative result)Ordered By: Dr. Castaneda on 12-03-2022 Manual differential comment Eric (Bld) [Interp] SCANNED [facility] Blood monocytes/100 leukocyt esOrdered By: Dr. Castaneda on 12-03-2022 Monocytes/100 WBC (Bld) 12.0 % 0-10 [facility] Blood platelet adequacy dete ction by light microscopyOrdered By: Dr. Castaneda on 12-03-2022 Platelets LM Ql (Bld) MKD DEC ADEQ [facility] Blood platelet mean volumeOr dered By: Dr. Castaneda on 12-03-2022 Platelet mean volume (Bld) [Entitic vol] 11.9 fL 6.2-12.0 [facility] COVID-19 virus antigen assay Ordered By: Sammie Castaneda on 12-03-2022 SARS-CoV-2 (COVID-19) Ag IA.rapid Ql (Resp) [facility] COVID-19 virus antigen assay Ordered By: Dr. Castaneda on 12-03-2022 SARS-CoV-2 (COVID-19) Ag IA.rapid Ql (Resp) [facility] Determination of erythrocyte mean corpuscular volume (MCV)Ordered By: Dr. Castaneda on 12-03-2022 MCV (RBC) [Entitic vol] 104.8 fL 80-94 [facility] Hematocrit Auto (Bld) [Volum e fraction]Ordered By: Dr. Castaneda on 12-03-2022 Hematocrit (Bld) [Volume fraction] 26.2 % 40-54 [facility] Laboratory - Chemistry and C hemistry - challengeOrdered By: Dr. Castaneda on 12-03-2022 ALP [Catalytic activity/Vol] 163 U/L 45-117 [facility] ALT [Catalytic activity/Vol] 94 U/L 16-61 [facility] CO2 [Moles/Vol] 21.0 mmol/L 21.0-32.0 [facility] Globulin (S) [Mass/Vol] 2.9 g/dL 2.2-4.2 [facility] Urea nitrogen/Creatinine [Mass ratio] 24.8 mg/mg 10-20 [facility] Laboratory - Hematology and Cell countsOrdered By: Dr. Castaneda on 12-03-2022 Erythrocyte distribution width (RBC) [Entitic vol] 60.0 fL 35.1-43.9 [facility] Erythrocyte distribution width (RBC) [Ratio] 15.5 % 11.6-14.6 [facility] Immature granulocytes/100 WBC (Bld) 1.300 % 0.0-0.9 [facility] Comment on above: IG% - Immature Granu locytes (promyelocytes, myelocytes and metamyelocytes) > 1% indicates that a LEFT SHIFT is Present. MCH (RBC) [Entitic mass] 34.8 pg 27.0-32.0 [facility] Nucleated RBC/100 WBC (Bld) [Ratio] 0 % 0-5 [facility] MCHC Auto (RBC) [Mass/Vol]Or dered By: Dr. Castaneda on 12-03-2022 MCHC (RBC) [Mass/Vol] 33.2 g/dL 32-36 [facility] No Panel InformationOrdered By: Dr. Castaneda on 12-03-2022 Estimated Creatinine Clearance Calc 21.83 ml/min [facility] Estimated GFR (MDRD) Amer 29 mL/min >60 [facility] Comment on above: GFR Calc Estimated GFR (MDRD) Non-Af Amer 24 mL/min >60 [facility] Comment on above: Non- GFR Calc No Panel InformationOrdered By: Sammie Castaneda on 12-03-2022 34.8 pg 27.0-32.0 [facility] 15.5 % 11.6-14.6 [facility] 60.0 fl 35.1-43.9 [facility] 1.300 % 0.0-0.9 [facility] 0 % 0-5 [facility] 24 mL/min >60 [facility] 29 mL/min >60 [facility] 21.83 ml/min [facility] 24.8 RATIO 10-20 [facility] 2.9 g/dL 2.2-4.2 [facility] 163 U/L 45-117 [facility] 94 U/L 16-61 [facility] 21.0 mmol/L 21.0-32.0 [facility] Platelets bldOrdered By: Dr. Castaneda on 12-03-2022 Platelets (Bld) [#/Vol] 63 10*3/uL 150-450 [facility] Serum or plasma albumin elvia urement (mass/volume)Ordered By: Dr. Castaneda on 12-03-2022 Albumin [Mass/Vol] 2.0 g/dL 3.2-5.0 [facility] Serum or plasma albumin/glob ulin mass ratioOrdered By: Dr. Castaneda on 12-03-2022 Albumin/Globulin [Mass ratio] 0.7 {ratio} 0.9-2.4 [facility] Serum or plasma calcium elvia urement (mass/volume)Ordered By: Dr. Castaneda on 12-03-2022 Calcium [Mass/Vol] 8.2 mg/dL 8.5-10.1 [facility] Serum or plasma creatinine m easurement (mass/volume)Ordered By: Dr. Castaneda on 12-03-2022 Creatinine [Mass/Vol] 2.74 mg/dL 0.70-1.30 [facility] Comment on above: The validity of the calculated GFR & GFRAA in patients over 70 years has not been determined. Clinical correlation is essential. Serum or plasma urea nitroge n measurement (mass/volume)Ordered By: Dr. Castaneda on 12-03-2022 Urea nitrogen [Mass/Vol] 68 mg/dL 7-18 [facility] Thin prep Papanicolaou smear with manual screeningOrdered By: Dr. Castaneda on 12-03-2022 Thin prep Papanicolaou smear with manual screening 161 U/L 15-37 [facility] Thin prep Papanicolaou smear with manual screening 5 5-15 [facility] Basophil percentageOrdered B y: Kvng James on 12-02-2022 Basophil percentage 104 U/L 87-241 [facility] Basophil percentageOrdered B y: Dr. James on 12-02-2022 LDH [Catalytic activity/Vol] 104 U/L 87-241 [facility] Laboratory - Chemistry and C hemistry - challengeOrdered By: Dr. James on 12-02-2022 CK [Catalytic activity/Vol] 32 U/L 39-308 [facility] No Panel InformationOrdered By: Dr. James on 12-02-2022 Haptoglobin 307 mg/dL 38-329 [facility] Comment on above: Performed at: [address] [id number] Director: Amaury Raya PhD, Phone: [phone] No Panel InformationOrdered By: Kvng James on 12-02-2022 32 U/L 39-308 [facility] 307 mg/dL 38-329 [facility] Blood anil cells detection b y light microscopyOrdered By: Dr. Castaneda on 12-01-2022 Anil cells LM Ql (Bld) 1+ [facility] Hypochromatic red blood cell detectionOrdered By: Dr. Castaneda on 12-01-2022 Hypochromia Ql (Bld) 1+ [facility] Laboratory - Hematology and Cell countsOrdered By: Dr. Castaneda on 12-01-2022 Anisocytosis Ql (Bld) 1+ [facility] Laboratory - Microbiology an d Antimicrobial susceptibilityOrdered By: Dr. Joe on 12-01-2022 Bacteria identified Cx Nom (Bld) Klebsiella pneumoniae sp pneum [facility] Macrocytes detectionOrdered By: Dr. Castaneda on 12-01-2022 Macrocytes Ql (Bld) 1+ [facility] No Panel InformationOrdered By: Sammie Castaneda on 12-01-2022 1+ [facility] Urine creatinine measurement (mass/volume)Ordered By: Dr. James on 12-01-2022 Creatinine (U) [Mass/Vol] 49.20 mg/dL NO RANGE EST. [facility] Urine protein measurement (m ass/volume)Ordered By: Dr. James on 12-01-2022 Protein (U) [Mass/Vol] 24.2 mg/dL 0.0-11.8 [facility] Urine protein/creatinine mas s ratioOrdered By: Dr. James on 12-01-2022 Protein/Creatinine (U) [Mass ratio] 492 mg/g CRE 0-200 [facility] Laboratory - Chemistry and C hemistry - challengeOrdered By: Dr. Castaneda on 11-30-2022 Sodium (U) [Moles/Vol] 34 mmol/L Not Establ. [facility] Free T4 [Mass/Vol] 1.20 ng/dL 0.76-1.46 [facility] Natriuretic peptide B (Bld) [Mass/Vol] 1355.2 pg/mL 0-100 [facility] No Panel InformationOrdered By: Jakob Alexander on 11-30-2022 Streptococcus pneumoniae Antigen (M [facility] No Panel InformationOrdered By: Dr. Castaneda on 11-30-2022 Urine Potassium 87.0 mmol/L Not Establ. [facility] Urine Urea Nitrogen 373 mg/dL NO RANGE EST. [facility] No Panel InformationOrdered By: Sammie Castaneda on 11-30-2022 34 mmol/L Not Establ. [facility] 87.0 mmol/L Not Establ. [facility] 373 mg/dL NO RANGE EST. [facility] 1355.2 pg/mL 0-100 [facility] 1.20 ng/dL 0.76-1.46 [facility] No Panel InformationOrdered By: Dr. Alexander on 11-30-2022 Streptococcus pneumoniae Antigen (M [facility] Review by pathologistOrdered By: Dr. Castaneda on 11-30-2022 Pathologist review Eric (Unsp spec) [Interp] Reviewed [facility] Comment on above: Previous reported re sult: Katarzyna varghese Edited by: RGOOD on 12/02/22:1328Pancytopenia.Leukopenia Macrocytic anemia.Marked ThrombocytopeniaClinical correlation necessary.Orestes Fraire M.D. 12/02/22 AMENDED REPORT 12/02/22 1328 PATH REV previously reported as: Katarzyna varghese Thin prep Papanicolaou smear with manual screeningOrdered By: Dr. Castaneda on 11-30-2022 Thin prep Papanicolaou smear with manual screening 92 mmol/L Not Establ. [facility] Urine Legionella pneumophila antigen detectionOrdered By: Jakob Alexander on 11-30-2022 L. pneumophila Ag Ql (U) [facility] Urine Legionella pneumophila antigen detectionOrdered By: Dr. Alexander on 11-30-2022 L. pneumophila Ag Ql (U) [facility] Urine osmolality measurement Ordered By: Dr. Castaneda on 11-30-2022 Osmolality (U) [Osmolality] 361 mOsm/KG >50 [facility] Comment on above: Normal Urine Referen ce Ranges Random: 50 - 1200 mOsm/kg H20 depending on fluid intake Random: >850 mOsm/kg after 12 hour fluid restriction 24 hour: ~300 - 900 mOsm/kg H2O Absolute lymphocyte countOrd ered By: Dr. Joe on 11-29-2022 Lymphocytes Auto (Unsp spec) [#/Vol] 0.21 10*3/uL 0.83-4.51 [facility] Basophil percentageOrdered B y: Dr. Joe on 11-29-2022 Basophil percentage 0 SEEN /hpf 0-5 [facility] Basophils/100 WBC (Bld) 0.5 % 0-1 [facility] Bilirubin [Mass/Vol] 0.90 mg/dL 0.20-1.00 [facility] Comment on above: For patients on eltr ombopag therapy, use of Dimension [place] TBIL is not recommended. Chloride [Moles/Vol] 111 mmol/L 98-107 [facility] Eosinophils/100 WBC (Bld) 0.0 % 0-5 [facility] Glucose [Mass/Vol] 119 mg/dL 74-106 [facility] Comment on above: Fasting Glucose resu lt from 100 to 125 mg/dL suggests IMPAIRED HOMEOSTASIS per A.D.A. criteria. Lactate [Moles/Vol] 1.7 mmol/L 0.4-2.0 [facility] Neutrophils (Bld) [#/Vol] 1.7 10*3/uL 2.0-7.7 [facility] Neutrophils/100 WBC (Bld) 82.6 % 47-70 [facility] Potassium [Moles/Vol] 4.9 mmol/L 3.5-5.1 [facility] Protein [Mass/Vol] 5.4 g/dL 6.4-8.2 [facility] Sodium [Moles/Vol] 140 mmol/L 136-145 [facility] WBC (Bld) [#/Vol] 2.0 10*3/uL 4.4-11.0 [facility] Basophil percentageOrdered B y: Lupe Joe on 11-29-2022 Basophil percentage 1.7 mmol/L 0.4-2.0 [facility] Bilirubin Test strip Ql (U)O rdered By: Dr. Joe on 11-29-2022 Bilirubin Ql (U) Negative Negative [facility] Blood band neutrophil count as percentage of total leukocytesOrdered By: Dr. Alexander on 11-29-2022 Band form neutrophils/100 WBC (Bld) 20 % 0-5 [facility] Blood erythrocytes count (nu mber/volume)Ordered By: Dr. Joe on 11-29-2022 RBC (Bld) [#/Vol] 2.31 10*6/uL 4.6-6.2 [facility] Blood hemoglobin measurement (mass/volume)Ordered By: Dr. Joe on 11-29-2022 Hemoglobin (Bld) [Mass/Vol] 8.1 g/dL 13.0-16.5 [facility] Blood lymphocytes/100 leukoc ytesOrdered By: Dr. Alexander on 11-29-2022 Lymphocytes/100 WBC (Bld) 18 % 19-41 [facility] Blood lymphocytes/100 leukoc ytesOrdered By: Dr. Joe on 11-29-2022 Lymphocytes/100 WBC (Bld) 10.4 % 19-41 [facility] Blood metamyelocytes/100 khurram kocytesOrdered By: Dr. Alexander on 11-29-2022 Metamyelocytes/100 WBC (Bld) 17 % 0-1 [facility] Blood monocytes/100 leukocyt esOrdered By: Dr. Alexander on 11-29-2022 Monocytes/100 WBC (Bld) 6 % 0-10 [facility] Blood monocytes/100 leukocyt esOrdered By: Dr. Joe on 11-29-2022 Monocytes/100 WBC (Bld) 6.5 % 0-10 [facility] Blood platelet adequacy dete ction by light microscopyOrdered By: Dr. Joe on 11-29-2022 Platelets LM Ql (Bld) MOD DEC ADEQ [facility] Blood platelet mean volumeOr dered By: Dr. Joe on 11-29-2022 Platelet mean volume (Bld) [Entitic vol] 10.6 fL 6.2-12.0 [facility] Blood segmented neutrophils/ [address]: [address] Alexander on 11-29-2022 Segmented neutrophils/100 WBC (Bld) 39 % 47-70 [facility] Determination of erythrocyte mean corpuscular volume (MCV)Ordered By: Dr. Joe on 11-29-2022 MCV (RBC) [Entitic vol] 108.2 fL 80-94 [facility] Hematocrit Auto (Bld) [Volum e fraction]Ordered By: Dr. Joe on 11-29-2022 Hematocrit (Bld) [Volume fraction] 25.0 % 40-54 [facility] Influenza virus A and B and SARS-CoV-2 (COVID-19) Ag panel - Upper respiratory specimOrdered By: Dr. Joe on 11-29-2022 SARS-CoV-2 (COVID-19) RNA SANTANA+probe Ql (Resp) [facility] Iron measurement (mass/mass) Ordered By: Dr. Alexander on 11-29-2022 Iron (Unsp spec) [Mass/Mass] 6 ug/dL 65-175 [facility] Ketones Test strip Ql (U)Ord ered By: Dr. Joe on 11-29-2022 Ketones Ql (U) Negative Negative [facility] Laboratory - Chemistry and C hemistry - challengeOrdered By: Dr. Alexander on 11-29-2022 Cobalamin (Vitamin B12) [Mass/Vol] 228 pg/mL 211-911 [facility] - Chemistry and C hemistry - challengeOrdered By: Dr. Joe on 11-29-2022 ALP [Catalytic activity/Vol] 68 U/L 45-117 [facility] ALT [Catalytic activity/Vol] 17 U/L 16-61 [facility] CO2 [Moles/Vol] 22.0 mmol/L 21.0-32.0 [facility] Globulin (S) [Mass/Vol] 2.4 g/dL 2.2-4.2 [facility] Urea nitrogen/Creatinine [Mass ratio] 16.1 mg/mg 10-20 [facility] Laboratory - Hematology and Cell countsOrdered By: Dr. Joe on 11-29-2022 Anisocytosis Ql (Bld) 1+ [facility] Erythrocyte distribution width (RBC) [Entitic vol] 62.1 fL 35.1-43.9 [facility] Erythrocyte distribution width (RBC) [Ratio] 15.7 % 11.6-14.6 [facility] Immature granulocytes/100 WBC (Bld) 0.000 % 0.0-0.9 [facility] Comment on above: IG% - Immature Granu locytes (promyelocytes, myelocytes and metamyelocytes) > 1% indicates that a LEFT SHIFT is Present. MCH (RBC) [Entitic mass] 35.1 pg 27.0-32.0 [facility] Nucleated RBC/100 WBC (Bld) [Ratio] 0 % 0-5 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 Bacteria identified Cx Nom (Bld) Klebsiella pneumoniae sp pneum [facility] MCHC Auto (RBC) [Mass/Vol]Or dered By: Dr. Joe on 11-29-2022 MCHC (RBC) [Mass/Vol] 32.4 g/dL 32-36 [facility] Macrocytes detectionOrdered By: Dr. Joe on 11-29-2022 Macrocytes Ql (Bld) 2+ [facility] Mucus LM Ql (Urine sed)Order ed By: Dr. oJe on 11-29-2022 Mucus Ql (Urine sed) 0 SEEN /hpf [facility] Nitrite Test strip Ql (U)Ord ered By: Dr. Joe on 11-29-2022 Nitrite Ql (U) Negative Negative [facility] No Panel InformationOrdered By: Dr. Alexander on 11-29-2022 Troponin I High Sensitivity 92 pg/mL 3.0-78.0 [facility] Comment on above: Please Note: New [place] t Units and Gender Specific Reference Ranges. For more information see Policy Stat Procedure [place] High Sensitivity Troponin (TNIH) and attachments. Thyroid Stimulating Hormone (TSH) 0.75 uIU/mL 0.358-3.74 [facility] Total Iron Binding Capacity 187 ug/dL 250-450 [facility] No Panel InformationOrdered By: Jakob Alexander on 11-29-2022 92 pg/mL 3.0-78.0 [facility] 0.75 uIU/mL 0.358-3.74 [facility] 228 pg/mL 211-911 [facility] 187 ug/dL 250-450 [facility] No Panel InformationOrdered By: Lupe Joe on 11-29-2022 GNR lactose assistant hall director [facility] Klebsiella pneumonia e sp pneum [facility] < 3.0 mg/dL [facility] No Panel InformationOrdered By: Dr. Joe on 11-29-2022 Estimated Creatinine Clearance Calc 23.11 ml/min [facility] Estimated GFR (MDRD) Amer 30 mL/min >60 [facility] Comment on above: GFR Calc Estimated GFR (MDRD) Non-Af Amer 25 mL/min >60 [facility] Comment on above: Non- GFR Calc Ethyl Alcohol Level < 3.0 mg/dL [facility] Comment on above: The serum:whole bloo d ethanol ratio is approximately 1.14and varies slightly with hematocrit. Medical Alcohol reference interval and critical value innon-tolerant individuals; 50 - 100 Impairment 100 Intoxication 100 - 250 Severe Poisoning 250 - 400 Deep/possible fatal coma Troponin I High Sensitivity 134 pg/mL 3.0-78.0 [facility] Comment on above: Critical Result(s) C alled at: 04:06:34 11/29/2022 by: JEANIE Larios RN ER. Results read back by same. Please Note: New Test Units and Gender Specific Reference Ranges. For more information see Policy Stat Procedure [place] High Sensitivity Troponin (TNIH) and attachments. Ovalocyte detectionOrdered B y: Dr. Alexander on 11-29-2022 Ovalocytes LM Ql (Bld) RARE [facility] Platelets bldOrdered By: Dr. Joe on 11-29-2022 Platelets (Bld) [#/Vol] 55 10*3/uL 150-450 [facility] Protein Test strip Ql (U)Ord ered By: Dr. Joe on 11-29-2022 Protein Ql (U) 100 mg/dl Negative [facility] Review by pathologistOrdered By: Dr. Joe on 11-29-2022 Pathologist review Eric (Unsp spec) [Interp] May foll [facility] Serum or plasma albumin elvia urement (mass/volume)Ordered By: Dr. Joe on 11-29-2022 Albumin [Mass/Vol] 3.0 g/dL 3.2-5.0 [facility] Serum or plasma albumin/glob ulin mass ratioOrdered By: Dr. Joe on 11-29-2022 Albumin/Globulin [Mass ratio] 1.2 {ratio} 0.9-2.4 [facility] Serum or plasma calcium elvia urement (mass/volume)Ordered By: Dr. Joe on 11-29-2022 Calcium [Mass/Vol] 8.3 mg/dL 8.5-10.1 [facility] Serum or plasma creatinine m easurement (mass/volume)Ordered By: Dr. Joe on 11-29-2022 Creatinine [Mass/Vol] 2.67 mg/dL 0.70-1.30 [facility] Comment on above: The validity of the calculated GFR & GFRAA in patients over 70 years has not been determined. Clinical correlation is essential. Serum or plasma ferritin pedro luis surement (mass/volume)Ordered By: Dr. Alexander on 11-29-2022 Ferritin [Mass/Vol] 578 ng/mL 26-388 [facility] Serum or plasma folate measu rement (mass/volume)Ordered By: Dr. Alexander on 11-29-2022 Folate [Mass/Vol] 5.50 ng/mL 3.1-55.4 [facility] Serum or plasma iron saturat ion measurement (mass fraction)Ordered By: Dr. Alexander on 11-29-2022 Iron saturation [Mass fraction] 3.2 % 15.0-55.0 [facility] Serum or plasma urea nitroge n measurement (mass/volume)Ordered By: Dr. Joe on 11-29-2022 Urea nitrogen [Mass/Vol] 43 mg/dL 7-18 [facility] Squamous epithelial cells de tection in urine sediment by light microscopyOrdered By: Dr. Joe on 11-29-2022 Epithelial cells.squamous LM Ql (Urine sed) 0 SEEN /hpf 0-5 [facility] Thin prep Papanicolaou smear with manual screeningOrdered By: Dr. 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 Comment on above: Previous reported re sult: 1+ Edited by: LEEROY on 11/29/22:0742 AMENDED REPORT 11/29/22 0742 MICROCYTES previously reported as: 1+ Thin prep Papanicolaou smear with manual screeningOrdered By: Dr. Joe on 11-29-2022 Thin prep Papanicolaou smear with manual screening 35 U/L 15-37 [facility] Thin prep Papanicolaou smear with manual screening 7 5-15 [facility] Total cell countOrdered By: Dr. Alexander on 11-29-2022 Cells counted Molgen (Bld/Tiss) [#] [address] [facility] Urine blood detectionOrdered By: Dr. Joe on 11-29-2022 RBC Ql (U) Negative Negative [facility] RBC Ql (U) 0 SEEN /hpf 0-5 [facility] Urine clarityOrdered By: Dr. Joe on 11-29-2022 Clarity (U) Clear Clear [facility] Urine color determinationOrd ered By: Dr. Joe on 11-29-2022 Color (U) Yellow Yellow [facility] Urine glucose detectionOrder ed By: Dr. Joe on 11-29-2022 Glucose Ql (U) Normal mg/dl Normal [facility] Urine leukocyte esterase det ection by dipstickOrdered By: Dr. Joe on 11-29-2022 Leukocyte esterase Test strip Ql (U) Negative Negative [facility] Urine pHOrdered By: Dr. Rossana carballo on 11-29-2022 pH (U) 5.0 [pH] 5.0 - 8.0 [facility] Urine sediment bacteria coun t by microscopy (number/high power field)Ordered By: Dr. Joe on 11-29-2022 Bacteria LM.HPF (Urine sed) [#/Area] 1 /[HPF] None Seen [facility] Urine specific gravity measu rementOrdered By: Dr. Joe on 11-29-2022 Specific gravity (U) [Rel density] 1.015 1.002-1.[address] [facility] Urobilinogen Auto test strip Ql (U)Ordered By: Dr. Joe on 11-29-2022 Urobilinogen Ql (U) Normal mg/dl Normal [facility] No Panel InformationOrdered By: Teresa Pop on 10-17-2022 Thyroid Stimulating Hormone (TSH) 1.80 uIU/mL 0.358-3.74 [facility] 1.80 uIU/mL 0.358-3.74 [facility] Basophil percentageOrdered B y: Dr. Santacruz on 08-23-2022 Chloride [Moles/Vol] 113 mmol/L 98-107 [facility] Cholesterol [Mass/Vol] 152 mg/dL <200 [facility] Comment on above: <200 mg/dL Desirable 200-240 mg/dL Borderline >240 mg/dL High Risk Glucose [Mass/Vol] 101 mg/dL 74-106 [facility] Comment on above: Fasting Glucose resu lt from 100 to 125 mg/dL suggests IMPAIRED HOMEOSTASIS per A.D.A. criteria. Potassium [Moles/Vol] 4.7 mmol/L 3.5-5.1 [facility] Sodium [Moles/Vol] 141 mmol/L 136-145 [facility] Triglyceride [Mass/Vol] 63 mg/dL <199 [facility] Comment on above: The drugs N-Acetylcy steine and Metamizole may falsely depress this assay.Serum Triglycerides Reference Interval Normal <150 mg/dL Borderline high 150 - 199 mg/dL High 200 - 499 mg/dL Very High > or = 500 mg/dL Laboratory - Chemistry and C hemistry - challengeOrdered By: Dr. Santacruz on 08-23-2022 ALT [Catalytic activity/Vol] 16 U/L 16-61 [facility] CO2 [Moles/Vol] 24.0 mmol/L 21.0-32.0 [facility] Urea nitrogen/Creatinine [Mass ratio] 19.3 mg/mg 10-20 [facility] No Panel InformationOrdered By: Dr. Santacruz on 08-23-2022 Estimated GFR (MDRD) Amer 33 mL/min >60 [facility] Comment on above: GFR Calc Estimated GFR (MDRD) Non-Af Amer 27 mL/min >60 [facility] Comment on above: Non- GFR Calc Serum or plasma calcium elvia urement (mass/volume)Ordered By: Dr. Santacruz on 08-23-2022 Calcium [Mass/Vol] 8.9 mg/dL 8.5-10.1 [facility] Serum or plasma cholesterol in HDL measurement (mass/volume)Ordered By: Dr. Santacruz on 08-23-2022 Cholesterol in HDL [Mass/Vol] 84 mg/dL >40 [facility] Comment on above: The drugs N-Acetylcy steine and Metamizole may falsely depress this assay. Reference Range HDL <40 mg/dL Low HDL Cholesterol HDL >or= 60 mg/dL High HDL Cholesterol Serum or plasma cholesterol in VLDL measurement (mass/volume)Ordered By: Dr. Santacruz on 08-23-2022 Cholesterol in VLDL [Mass/Vol] 13 mg/dL 5-40 [facility] Serum or plasma creatinine m easurement (mass/volume)Ordered By: Dr. Santacruz on 08-23-2022 Creatinine [Mass/Vol] 2.44 mg/dL 0.70-1.30 [facility] Comment on above: The validity of the calculated GFR & GFRAA in patients over 70 years has not been determined. Clinical correlation is essential. Serum or plasma low density lipoprotein (LDL) cholesterol measurement (mass/volume)Ordered By: Dr. Santacruz on 08-23-2022 Cholesterol in LDL [Mass/Vol] 55 mg/dL 0-130 [facility] Serum or plasma urea nitroge n measurement (mass/volume)Ordered By: Dr. Santacruz on 08-23-2022 Urea nitrogen [Mass/Vol] 47 mg/dL 7-18 [facility] Thin prep Papanicolaou smear with manual screeningOrdered By: Dr. Santacruz on 08-23-2022 Thin prep Papanicolaou smear with manual screening 22 U/L 15-37 [facility] Thin prep Papanicolaou smear with manual screening 4 5-15 [facility] Absolute lymphocyte countOrd ered By: Dr. Cazares on 05-20-2022 Lymphocytes Auto (Unsp spec) [#/Vol] 0.54 10*3/uL 0.83-4.51 [facility] Basophil percentageOrdered B y: Dr. Cazares on 05-20-2022 Basophils/100 WBC (Bld) 1.0 % 0-1 [facility] Chloride [Moles/Vol] 110 mmol/L 98-107 [facility] Eosinophils/100 WBC (Bld) 2.0 % 0-5 [facility] Glucose [Mass/Vol] 103 mg/dL 74-106 [facility] Comment on above: Fasting Glucose resu lt from 100 to 125 mg/dL suggests IMPAIRED HOMEOSTASIS per A.D.A. criteria. Neutrophils (Bld) [#/Vol] 2.9 10*3/uL 2.0-7.7 [facility] Neutrophils/100 WBC (Bld) 72.5 % 47-70 [facility] Potassium [Moles/Vol] 4.8 mmol/L 3.5-5.1 [facility] Sodium [Moles/Vol] 141 mmol/L 136-145 [facility] WBC (Bld) [#/Vol] 4.0 10*3/uL 4.4-11.0 [facility] Blood erythrocytes count (nu mber/volume)Ordered By: Dr. Cazares on 05-20-2022 RBC (Bld) [#/Vol] 3.14 10*6/uL 4.6-6.2 [facility] Blood hemoglobin measurement (mass/volume)Ordered By: Dr. Cazares on 05-20-2022 Hemoglobin (Bld) [Mass/Vol] 11.6 g/dL 13.0-16.5 [facility] Blood lymphocytes/100 leukoc ytesOrdered By: Dr. Cazares on 05-20-2022 Lymphocytes/100 WBC (Bld) 13.4 % 19-41 [facility] Blood manual differential co mment interpretation (narrative result)Ordered By: Dr. Cazares on 05-20-2022 Manual differential comment Eric (Bld) [Interp] See comment [facility] Comment on above: LYMPHOPENIA NOTED Blood monocytes/100 leukocyt esOrdered By: Dr. Cazares on 05-20-2022 Monocytes/100 WBC (Bld) 10.9 % 0-10 [facility] Blood platelet mean volumeOr dered By: Dr. Cazares on 05-20-2022 Platelet mean volume (Bld) [Entitic vol] 10.8 fL 6.2-12.0 [facility] Determination of erythrocyte mean corpuscular volume (MCV)Ordered By: Dr. Cazares on 05-20-2022 MCV (RBC) [Entitic vol] 108.6 fL 80-94 [facility] Hematocrit Auto (Bld) [Volum e fraction]Ordered By: Dr. Cazares on 05-20-2022 Hematocrit (Bld) [Volume fraction] 34.1 % 40-54 [facility] Laboratory - Chemistry and C hemistry - challengeOrdered By: Dr. Cazares on 05-20-2022 CO2 [Moles/Vol] 26.0 mmol/L 21.0-32.0 [facility] Urea nitrogen/Creatinine [Mass ratio] 16.5 mg/mg 10-20 [facility] Laboratory - Hematology and Cell countsOrdered By: Dr. Cazares on 05-20-2022 Erythrocyte distribution width (RBC) [Entitic vol] 58.4 fL 35.1-43.9 [facility] Erythrocyte distribution width (RBC) [Ratio] 14.6 % 11.6-14.6 [facility] Immature granulocytes/100 WBC (Bld) 0.200 % 0.0-0.9 [facility] Comment on above: IG% - Immature Granu locytes (promyelocytes, myelocytes and metamyelocytes) > 1% indicates that a LEFT SHIFT is Present. MCH (RBC) [Entitic mass] 36.9 pg 27.0-32.0 [facility] Nucleated RBC/100 WBC (Bld) [Ratio] 0 % 0-5 [facility] MCHC Auto (RBC) [Mass/Vol]Or dered By: Dr. Cazares on 05-20-2022 MCHC (RBC) [Mass/Vol] 34.0 g/dL 32-36 [facility] No Panel InformationOrdered By: Dr. Cazares on 05-20-2022 Estimated Creatinine Clearance Calc 30.46 ml/min [facility] Estimated GFR (MDRD) Amer 40 mL/min >60 [facility] Comment on above: GFR Calc Estimated GFR (MDRD) Non-Af Amer 33 mL/min >60 [facility] Comment on above: Non- GFR Calc Platelets bldOrdered By: Dr. Cazares on 05-20-2022 Platelets (Bld) [#/Vol] 107 10*3/uL 150-450 [facility] Review by pathologistOrdered By: Dr. Cazares on 05-20-2022 Pathologist review Eric (Unsp spec) [Interp] Reviewed [facility] Comment on above: Previous reported re sult: Katarzyna varghese Edited by: RGOOD on 05/22/22:932Pancytopenia.Leukopenia Macrocytic anemia.Mild ThrombocytopeniaClinical correlation necessary.Orestes Fraire M.D. 05/22/22 AMENDED REPORT 05/22/22932 PATH REV previously reported as: Katarzyna varghese Serum or plasma calcium elvia urement (mass/volume)Ordered By: Dr. Cazares on 05-20-2022 Calcium [Mass/Vol] 9.0 mg/dL 8.5-10.1 [facility] Serum or plasma creatinine m easurement (mass/volume)Ordered By: Dr. Cazares on 05-20-2022 Creatinine [Mass/Vol] 2.06 mg/dL 0.70-1.30 [facility] Comment on above: The validity of the calculated GFR & GFRAA in patients over 70 years has not been determined. Clinical correlation is essential. Serum or plasma urea nitroge n measurement (mass/volume)Ordered By: Dr. Cazares on 05-20-2022 Urea nitrogen [Mass/Vol] 34 mg/dL 7-18 [facility] Thin prep Papanicolaou smear with manual screeningOrdered By: Dr. Cazares on 05-20-2022 Thin prep Papanicolaou smear with manual screening 5 - [facility] Absolute lymphocyte counton 03-27-2022 Lymphocytes Auto (Unsp spec) [#/Vol] 0.60 10*3/uL 0.83-4.51 [facility] Work Phone: Basophil percentageon 2021 Basophils/100 WBC (Bld) 0.7 % 0-1 [facility] Work Phone: Bilirubin [Mass/Vol] 0.60 mg/dL 0.20-1.00 [facility] Work Phone: Comment on above: For patients on eltr ombopag therapy, use of Dimension [place] TBIL is not recommended. Chloride [Moles/Vol] 113 mmol/L 98-107 [facility] Work Phone: Eosinophils/100 WBC (Bld) 2.7 % 0-5 [facility] Work Phone: [phone] Glucose [Mass/Vol] 100 mg/dL 74-106 [facility] Work Phone: Comment on above: Fasting Glucose resu lt from 100 to 125 mg/dL suggests IMPAIRED HOMEOSTASIS per A.D.A. criteria. Neutrophils (Bld) [#/Vol] 2.9 10*3/uL 2.0-7.7 [facility] Work Phone: [phone] Neutrophils/100 WBC (Bld) 71.1 % 47-70 [facility] Work Phone: Potassium [Moles/Vol] 5.2 mmol/L 3.5-5.1 [facility] Work Phone: Protein [Mass/Vol] 6.5 g/dL 6.4-8.2 [facility] Work Phone: Sodium [Moles/Vol] 144 mmol/L 136-145 [facility] Work Phone: WBC (Bld) [#/Vol] 4.1 10*3/uL 4.4-11.0 [facility] Work Phone: [phone] Blood erythrocytes count (nu mber/volume)on 03-27-2022 RBC (Bld) [#/Vol] 3.18 10*6/uL 4.6-6.2 [facility] Work Phone: [phone] Blood hemoglobin measurement (mass/volume)on 03-27-2022 Hemoglobin (Bld) [Mass/Vol] 11.2 g/dL 13.0-16.5 [facility] Work Phone: Blood lymphocytes/100 leukoc yteson 03-27-2022 Lymphocytes/100 WBC (Bld) 14.6 % 19-41 [facility] Work Phone: [phone] Blood manual differential co mment interpretation (narrative result)Ordered By: Mathieu Mcintyre on 03-27-2022 Manual differential comment Eric (Bld) [Interp] SCANNED [facility] Comment on above: LYMPHOPENIA NOTED Blood monocytes/100 leukocyt eson 03-27-2022 Monocytes/100 WBC (Bld) 10.7 % 0-10 [facility] Work Phone: Blood platelet mean volumeon 03-27-2022 Platelet mean volume (Bld) [Entitic vol] 10.2 fL 6.2-12.0 [facility] Work Phone: [phone] Determination of erythrocyte mean corpuscular volume (MCV)on 03-27-2022 MCV (RBC) [Entitic vol] 112.6 fL 80-94 [facility] Work Phone: Hematocrit Auto (Bld) [Volum e fraction]on 03-27-2022 Hematocrit (Bld) [Volume fraction] 35.8 % 40-54 [facility] Work Phone: Iron measurement (mass/mass) on 03-27-2022 Iron (Unsp spec) [Mass/Mass] 80 ug/dL 65-175 [facility] Work Phone: Laboratory - Chemistry and C hemistry - challengeon 03-27-2022 ALP [Catalytic activity/Vol] 102 U/L 45-117 [facility] Work Phone: [phone] ALT [Catalytic activity/Vol] 15 U/L 16-61 [facility] Work Phone: [phone] CO2 [Moles/Vol] 26.0 mmol/L 21.0-32.0 [facility] Work Phone: [phone] Globulin (S) [Mass/Vol] 2.8 g/dL 2.2-4.2 [facility] Work Phone: [phone] Urea nitrogen/Creatinine [Mass ratio] 17.9 mg/mg 10-20 [facility] Work Phone: [phone] Laboratory - Chemistry and C hemistry - challengeOrdered By: Mathieu Mcintyre on 03-27-2022 Cobalamin (Vitamin B12) [Mass/Vol] 260 pg/mL 211-911 [facility] Laboratory - Hematology and Cell countson 03-27-2022 Erythrocyte distribution width (RBC) [Entitic vol] 63.0 fL 35.1-43.9 [facility] Work Phone: [phone] Erythrocyte distribution width (RBC) [Ratio] 14.9 % 11.6-14.6 [facility] Work Phone: [phone] Immature granulocytes/100 WBC (Bld) 0.200 % 0.0-0.9 [facility] Work Phone: [phone] Comment on above: IG% - Immature Granu locytes (promyelocytes, myelocytes and metamyelocytes) > 1% indicates that a LEFT SHIFT is Present. MCH (RBC) [Entitic mass] 35.2 pg 27.0-32.0 [facility] Work Phone: Nucleated RBC/100 WBC (Bld) [Ratio] 0 % 0-5 [facility] Work Phone: MCHC Auto (RBC) [Mass/Vol]on 03-27-2022 MCHC (RBC) [Mass/Vol] 31.3 g/dL 32-36 [facility] Work Phone: No Panel Informationon 03-27 Estimated GFR (MDRD) Amer 37 mL/min >60 [facility] Work Phone: Comment on above: GFR Calc Estimated GFR (MDRD) Non-Af Amer 30 mL/min >60 [facility] Work Phone: Comment on above: Non- GFR Calc Total Iron Binding Capacity 255 ug/dL 250-450 [facility] Work Phone: No Panel InformationOrdered By: Mathieu Mcintyre on 03-27-2022 Miscellaneous Test See comment [facility] Comment on above: TEST RESULT LIMITSCo mp panel: Leukemia/LymphomaFlow InterpretationNo significant immunophenotypic abnormality detectedClinical InformationA recent CBC was not available for review at the time this report was prepared.Specimen Type Peripheral bloodAssessment of Leukocytes No monoclonal B cell population is detected.kappa:lambda ratio 1.4There is no loss of, or aberrant expression of, the delgado T cell antigens to suggest a neoplastic T cell process.CD4:CD8 ratio 3.3No circulating blasts are detected.There is no immunophenotypic evidence of abnormal myeloid maturation.Analysis of the leukocyte population shows: granulocytes 76%, monocytes 8%, lymphocytes 16%, blasts <0.1%, B cells 4%, T cells 8%, NK cells 4%.Viability 92%Analysis and Gating Strategy 8 color analysis with CD45/SSC gatingPhenotype Chart CD2 Normal CD3 NormalCD4 Normal CD5 NormalCD7 Normal CD8 RhuccoFL88 Normal CD11b WzkcyaRR13 Normal CD14 LpiwenEK09 Normal CD19 GvjroaZF12 Normal CD33 Normal CD34 Normal CD38 TlmesuKE36 Normal CD56 HtnpoxLP40 Normal CD117 NormalHLA-DR Normal KAPPA NormalLAMBDA Normal CD64 NormalResulting Path Name Moustapha Butcher M.D. Ph.DComment: Each antibody in this assay was utilized to assess for potential abnormalities of studied cell populations or to characterize identified abnormalities.This test was developed and its performance characteristics determined by [facility]. It has not been cleared or approved by the U.S. Food and Drug Administration.The FDA has determined that such clearance or approval is not necessary. This test is used for clinical purposes. It should not be regarded as investigational or for research. ____ TESTING PERFORMED AT [facility]. ORIGINAL REPORT ON FILE IN LAB CONTAINS ADDITIONAL TEST SITE INFORMATION. TEST RESULT LIMITSCL L FISH PanelSpecimen Type Comment: BLOODCells Counted Comment: 100/PROBECells Analyzed Comment: 100/PROBEFISH Result Comment: NORMAL CLL PANELInterpretation Comment: The CLL interphase fluorescence in situ hybridization(FISH) panel analysis was normal. There were no cells withCCND1-IGH fusion. No extra signals or deletions of ABIMAEL,chromosome 12, 13q, or TP53 were observed. SPECIFIC FISH RESULTS: CCND1/IGH: NORMAL . nuc javad 11q13(IEYX2r3),14q32(IGHx2)[100] ABIMAEL: NORMAL nuc javad 11q22.3(ATMx2)[100] . 12cen: NORMAL . nuc javad 12cen([id number])[100] . 13q: NORMAL . nuc javad 13q14.3(DLEUx2),13q34(YUJN1g6)[100] . TP53: NORMAL . nuc javad 17p13.1(TP53x2)[100] This analysis is limited to abnormalities detectableby the specific probes included in the study. FISH resultsshould be interpreted within the context of a fullcytogenetic analysis and hematologic evaluation. REFERENCES:. [place] Nena,(2013) Adv Exp Med Biol 792:193-214.PMID#[id number] . Schnaiter et al.,(2011) Clin Lab Med 31:649-58.PMID#[id number] This test was developed and its performacecharacteristics determined by [employer] ([employer]). It has not been cleared orapproved by the U.S. Food and Drug Administration. The DNAprobe vendor for this study was [employer] ([employer]). TESTING PERFORMED AT [facility]. ORIGINAL REPORT ON FILE IN LAB CONTAINS ADDITIONAL TEST SITE INFORMATION. 260 pg/mL 211-911 [facility] See comment [facility] Platelets bldon 03-27-2022 Platelets (Bld) [#/Vol] 108 10*3/uL 150-450 [facility] Work Phone: Review by pathologistOrdered By: Mathieu Mcintyre on 03-27-2022 Pathologist review Eric (Unsp spec) [Interp] Reviewed [facility] Comment on above: Previous reported re sult: Katarzyna varghese Edited by: RGOOD on 03/28/22:1326Pancytopenia.Leukopenia Mild Macrocytic anemia.Mild ThrombocytopeniaClinical correlation necessary.Orestes Fraire M.D. 03/28/22 AMENDED REPORT 03/28/22 1326 PATH REV previously reported as: October halima Serum or plasma albumin elvia urement (mass/volume)on 03-27-2022 Albumin [Mass/Vol] 3.7 g/dL 3.2-5.0 [facility] Work Phone: Serum or plasma albumin/glob ulin mass ratioon 03-27-2022 Albumin/Globulin [Mass ratio] 1.3 {ratio} 0.9-2.4 [facility] Work Phone: Serum or plasma calcium elvia urement (mass/volume)on 03-27-2022 Calcium [Mass/Vol] 8.8 mg/dL 8.5-10.1 [facility] Work Phone: Serum or plasma creatinine m easurement (mass/volume)on 03-27-2022 Creatinine [Mass/Vol] 2.23 mg/dL 0.70-1.30 [facility] Work Phone: Comment on above: The validity of the calculated GFR & GFRAA in patients over 70 years has not been determined. Clinical correlation is essential. Serum or plasma ferritin pedro luis surement (mass/volume)on 03-27-2022 Ferritin [Mass/Vol] 293 ng/mL 26-388 [facility] Work Phone: Serum or plasma folate measu rement (mass/volume)Ordered By: Mathieu Mcintyre on 03-27-2022 Folate [Mass/Vol] 17.60 ng/mL 3.1-55.4 [facility] Serum or plasma iron saturat ion measurement (mass fraction)on 03-27-2022 Iron saturation [Mass fraction] 31.4 % 15.0-55.0 [facility] Work Phone: Serum or plasma urea nitroge n measurement (mass/volume)on 03-27-2022 Urea nitrogen [Mass/Vol] 40 mg/dL 7-18 [facility] Work Phone: Thin prep Papanicolaou smear with manual screeningon 03-27-2022 Thin prep Papanicolaou smear with manual screening 18 U/L 15-37 [facility] Work Phone: Thin prep Papanicolaou smear with manual screening 5 5-15 [facility] Work Phone: Thin prep Papanicolaou smear with manual screening 160 U/L 87-241 [facility] Work Phone: Laboratory - Hematology and Cell countson 10-03-2021 Anisocytosis Ql (Bld) 1+ [facility] Work Phone: Hemoglobin in reticulocytes (mass per reticulocyte)on 06-06-2021 Hemoglobin (Reticulocytes) [Entitic mass] 36.0 pg High 30-35 [facility] No Panel Informationon 06-06 Haptoglobin 77 mg/dL 34-355 [facility] Comment on above: Performed at: [address] [id number] Director: Amaury Raya PhD, Phone: [phone] Immature Reticulocyte Fraction 10.20 % 3.00-15.90 [facility] Reticulocyte Count 1.60 % High 0.5-1.5 [facility] 1.60 % High 0.5-1.5 [facility] 10.20 % 3.00-15.90 [facility] 77 mg/dL 34-355 [facility] Ovalocyte detectionon 2020 Ovalocytes LM Ql (Bld) 1+ [facility] Serum or plasma erythropoiet in (EPO) measurement (units/volume)on 06-06-2021 Erythropoietin (EPO) Qn 15.0 mIU/mL 2.6-18.5 [facility] Comment on above: Reevoo el DxI 800 Immunoassay SystemValues obtained with different assay methods or kits cannotbe used interchangeably. Results cannot be interpreted asabsolute evidence of the presence or absence of malignantdisease. Stool gastrointestinal hemog lobin detection by immunologic methodon 05-17-2021 Lower GI hemoglobin IA Ql (Stl) [facility] Albumin Elph [Mass/Vol]on Albumin [Mass/Vol] 3.8 g/dL 2.9-4.4 [facility] Blood polychromasia detectio n by light microscopyon 05-16-2021 Polychromasia LM Ql (Bld) 1+ [facility] Erythrocyte sedimentation ra adelfo 05-16-2021 ESR (Bld) [Velocity] mm/h 0-20 [facility] Comment on above: Previous reported re sult: 1 mm/hrEdited by: DREW on 05/17/21:228 AMENDED REPORT 05/17/21228 SED RATE previously reported as: 1 mm/hr Interpretation of serum or p lasma protein pattern by immunofixation (narrative resulton 05-16-2021 Protein Fractions Immunofixation Eric [Interp] See comment [facility] Comment on above: Not Observed Macrocytes detectionon 05-16 Macrocytes Ql (Bld) 1+ [facility] No Panel Informationon 05-16 Addendum Document Comment . [facility] Comment on above: Protein electrophore sis scan will follow via computer,mail, or slusher operator delivery. Free Lambda Light Chains, Quant 15.6 mg/L 5.7-26.3 [facility] 15.6 mg/L 5.7-26.3 [facility] Serum [id number] measu rement by electrophoresison 05-16-2021 Alpha 1 globulin Elph [Mass/Vol] 0.4 g/dL 0.0-0.4 [facility] Alpha 1 globulin Elph [Mass/Vol] 0.5 g/dL 0.4-1.0 [facility] Serum immunoglobulin kappa l ight chains/immunoglobulin lambda light chains mass ratioon 05-16-2021 Immunoglobulin light chains.kappa/Immunoglob ulin light chains.lambda (S) [Mass ratio] 1.62 0.26-1.65 [facility] Comment on above: Performed at: [employer] [place] [id number] Director: Amaury Raya PhD, Phone: [phone] Serum or plasma IgA measurem ent (mass/volume)on 05-16-2021 IgA [Mass/Vol] 75 mg/dL 61-437 [facility] Serum or plasma IgG measurem ent (mass/volume)on 05-16-2021 IgG [Mass/Vol] 590 mg/dL Low 603-7353 [facility] Serum or plasma IgM measurem ent (mass/volume)on 05-16-2021 IgM [Mass/Vol] 9 mg/dL Low 15-143 [facility] Comment on above: Result confirmed on concentration. Serum or plasma beta globuli n measurement by electrophoresis (mass/volume)on 05-16-2021 Beta globulin Elph [Mass/Vol] 0.7 g/dL 0.7-1.3 [facility] Serum or plasma gamma globul in measurement by electrophoresis (mass/volume)on 05-16-2021 Gamma globulin Elph [Mass/Vol] 0.5 g/dL 0.4-1.8 [facility] Serum or plasma immunoelectr ophoresis interpretation (nominal result)on 05-16-2021 Interpretation IEP [Interp] Comment . [facility] Comment on above: No monoclonality det ected. Serum or plasma immunoglobul in kappa light chains measurement (mass/volume)on 05-16-2021 Immunoglobulin light chains.kappa [Mass/Vol] 25.3 mg/L High 3.3-19.4 [facility] Thin prep Papanicolaou smear with manual screeningon 05-16-2021 Thin prep Papanicolaou smear with manual screening 1+ [facility] Thin prep Papanicolaou smear with manual screening 1.9 0.7-1.7 [facility] Total protein bloodon 2020 Protein [Mass/Vol] 5.9 g/dL Low 6.0-8.5 [facility] CULTURE FUNGUSon 10-10-2020 CULTURE FUNGUS CULTURE FUNGUS --> S tatus: F No fungus isolated after 21 days. Normal [facility] Comment on above: Performed By: #### C /TBC #### [facility] [address] [place] [address] Basic Metabolic Panelon 09-28 Calcium [Mass/Vol] 8.4 mg/dL Normal 8.4-10.4 [facility] Comment on above: Performed By: #### B NP3, BMP3, MG3 #### [facility] [address] [place], [place] Glucose [Mass/Vol] 102 mg/dL High 70-100 [facility] Comment on above: Performed By: #### B NP3, BMP3, MG3 #### [facility] [address] [place] [address] Urea nitrogen [Mass/Vol] 44 mg/dL High 7-20 [facility] Comment on above: Performed By: #### B NP3, BMP3, MG3 #### [facility] [address] [place] [address] Anion gap [Moles/Vol] 3 mmol/L Normal 3-13 [facility] Comment on above: Performed By: #### B NP3, BMP3, MG3 #### [address] CO2 [Moles/Vol] 32 mmol/L High 22-30 [facility] Comment on above: Performed By: #### B NP3, BMP3, MG3 #### [address] Creatinine [Mass/Vol] 2.13 mg/dL High 0.52-1.25 [facility] Comment on above: Performed By: #### B NP3, BMP3, MG3 #### [address] [address] GFR/1.73 sq M.predicted among blacks MDRD (S/P/Bld) [Vol rate/Area] 33.1 mL/min/{1.73_m2} Abnormal >60 [facility] Comment on above: Performed By: #### B NP3, BMP3, MG3 #### [address] GFR/1.73 sq M.predicted among non-blacks MDRD (S/P/Bld) [Vol rate/Area] 28.5 mL/min/{1.73_m2} Abnormal >60 [facility] Comment on above: Result Comment: KDIG O guidelines provide the following GFR categories: Stage GFR(ml/min/1.73 m2) Terms G1 >=90 Normal or high G2 60-89 Mildly decreased* G3a 45-59 Mildly to moderately decreased G3b 30-44 Moderately to severely decreased G4 15-29 Severely decreased G5 <15 Kidney failure *Relative to young adult level. In the absence of evidence of kidney damage, neither GFR category G1 nor G2 fulfill the criteria for CKD. The CKD-EPI equation is validated in individuals 18 years of age and older. Currently the best equation for estimating glomerular filtration rate (GFR) from serum creatinine in children is the Bedside Bocanegra equation. It is less accurate in patients with extremes of muscle mass, restriction of dietary protein, ingestion of creatine, extra-renal metabolism of creatinine, or treatment with medications that affect renal tubular creatinine secretion. Performed By: #### B NP3, BMP3, MG3 #### [address] [place] [address] Chloride [Moles/Vol] 101 mmol/L Normal 98-107 [facility] Comment on above: Performed By: #### B NP3, BMP3, MG3 #### [facility] [address] [place] [address] Potassium [Moles/Vol] 3.3 mmol/L Low 3.5-5.1 [facility] Comment on above: Performed By: #### B NP3, BMP3, MG3 #### [facility] [address] [place] [address] Sodium [Moles/Vol] 137 mmol/L Normal 135-145 [facility] Comment on above: Performed By: #### B NP3, BMP3, MG3 #### [facility] [address] [place] [address] Anion gap [Moles/Vol] 3 mmol/L 3 - 13 mmol/L [facility] Work Phone: Calcium [Mass/Vol] 8.4 mg/dL 8.4 - 10. 4 mg/dL [facility] Work Phone: Chloride [Moles/Vol] 101 mmol/L 98 - 10 7 mmol/L [facility] Work Phone: CO2 [Moles/Vol] 32 mmol/L High 22 - 30 mmol/L [facility] Work Phone: Creatinine [Mass/Vol] 2.13 mg/dL High 0.52 - 1.25 mg/dL [facility] Work Phone: EGFR IF NonAfrican Cambodian 28.5 mL/min Abnormal >60 [facility] Work Phone: Comment on above: KDIGO guidelines pro vide the following GFR categories: Stage GFR(ml/min/1.73 m2) Terms G1 >=90 Normal or high G2 60-89 Mildly decreased* G3a 45-59 Mildly to moderately decreased G3b 30-44 Moderately to severely decreased G4 15-29 Severely decreased G5 <15 Kidney failure *Relative to young adult level. In the absence of evidence of kidney damage, neither GFR category G1 nor G2 fulfill the criteria for CKD. The CKD-EPI equation is validated in individuals 18 years of age and older. Currently the best equation for estimating glomerular filtration rate (GFR) from serum creatinine in children is the Bedside Bocanegra equation. It is less accurate in patients with extremes of muscle mass, restriction of dietary protein, ingestion of creatine, extra-renal metabolism of creatinine, or treatment with medications that affect renal tubular creatinine secretion. GFR/1.73 sq M predicted among blacks MDRD (S/P/Bld) [Vol rate/Area] 33.1 mL/min/{1.73_m2} Abnormal >60 [facility] Work Phone: Glucose [Mass/Vol] 102 mg/dL High 70 - 100 mg/dL [facility] Work Phone: Interpretation and review of laboratory results Abnormal [facility] Work Phone: Potassium [Moles/Vol] 3.3 mmol/L Low 3.5 - 5.1 mmol/L [facility] Work Phone: Sodium [Moles/Vol] 137 mmol/L 135 - 145 mmol/L [facility] Work Phone: Urea nitrogen (BldV) [Mass/Vol] 44 mg/dL High 7 - 20 mg/dL [facility] Work Phone: Brain Natriuretic Peptideon 10-07-2020 Interpretation and review of laboratory results Abnormal [facility] Work Phone: Natriuretic peptide B (Bld) [Mass/Vol] 7758 pg/mL High 0 - 450 pg/mL [facility] Work Phone: Test Performed by [address] [address] [facility] Work Phone: CR Chest Portableon 10-08-19 21 CR Chest Portable Patient Name: AMAURY DAVIS Diagnostic Radiology ACCESSION EXAM DATE/TIME PROCEDURE ORDERING PROVIDER [id number] 10/07/2020 07:31 EDT CR Chest Portable KASSANDRA DAVIDSON CPT code 82974 Reason For Exam (CR Chest Portable) Post CT placement, eval interval change Report CHEST: CLINICAL INDICATION: Post chest tube placement. Evaluate interval change. TECHNIQUE: AP portable chest COMPARISON: Most recently 10/06/2020 FINDINGS: Stable right basilar pigtail chest tube drainage catheter. Tip of the left upper extremity PICC terminating at the level of the lower SVC. Median sternotomy wires and surgical clips again noted. Persistent small right pleural effusion. Stable cardiomegaly.. Unchanged bibasilar opacities. IMPRESSION: Stable portable chest including right basilar pigtail drainage catheter and left PICC. Small right pleural effusion and probable bibasilar atelectasis. Report Dictated on Final Dictated: 10/07/2020 10:49 am Dictating Physician: MD CRUZ, KERRI Martino Signed Date and Time: 10/07/2020 10:52 am Signed by: MD ARROYO KERISTEN L Transcribed Date and Time: 10/07/2020 10:49 Normal [facility] Magnesiumon 10-07-2020 Magnesium [Mass/Vol] 1.9 mg/dL Normal 1.6-2.3 [facility] Comment on above: Performed By: #### B NP3, BMP3, MG3 #### [address] [address] Magnesium [Mass/Vol] 1.9 mg/dL 1.6 - 2 .3 mg/dL [facility] Work Phone: NT pro BNPon 10-07-2020 Natriuretic peptide B (Bld) [Mass/Vol] 7758 pg/mL High 0-450 [facility] Comment on above: Performed By: #### C /TBC #### [address] [address] Otheron 10-07-2020 Test Performed by [facility], [address] [place] [address] [facility] Work Phone: XR CHEST PORTABLEon 10-08-19 Patient Name: AMAURY HOLMAN Diagnostic Radiology ACCESSION EXAM DATE/TIME PROCEDURE ORDERING PROVIDER [id number] 10/07/2020 07:31 EDT CR Chest Portable KASSANDRA DAVIDSON CPT code 95877 Reason For Exam (CR Chest Portable) Post CT placement, eval interval change Report CHEST: CLINICAL INDICATION: Post chest tube placement. Evaluate interval change. TECHNIQUE: AP portable chest COMPARISON: Most recently 10/06/2020 FINDINGS: Stable right basilar pigtail chest tube drainage catheter. Tip of the left upper extremity PICC terminating at the level of the lower SVC. Median sternotomy wires and surgical clips again noted. Persistent small right pleural effusion. Stable cardiomegaly.. Unchanged bibasilar opacities. IMPRESSION: Stable portable chest including right basilar pigtail drainage catheter and left PICC. Small right pleural effusion and probable bibasilar atelectasis. Report Dictated on --- Final --- Dictated: 10/07/2020 10:49 am Dictating Physician: MD ARROYO KERISTEN L Signed Date and Time: 10/07/2020 10:52 am Signed by: MD ARROYO KERISTEN L Transcribed Date and Time: 10/07/2020 10:49 [facility] Work Phone: Jax, [facility] Incoming Radiology Results From [facility] - 10/07/2020 10:53 AM EDT [facility]: [id number] Radiology ACCESSION EXAM DATE/TIME PROCEDURE ORDERING PROVIDER [id number] 10/07/2020 07:31 EDT CR Chest Portable KASSANDRA DAVIDSON CPT code 76068 Reason For Exam (CR Chest Portable) Post CT placement, eval interval change Report CHEST: CLINICAL INDICATION: Post chest tube placement. Evaluate interval change. TECHNIQUE: AP portable chest COMPARISON: Most recently 10/06/2020 FINDINGS: Stable right basilar pigtail chest tube drainage catheter. Tip of the left upper extremity PICC terminating at the level of the lower SVC. Median sternotomy wires and surgical clips again noted. Persistent small right pleural effusion. Stable cardiomegaly.. Unchanged bibasilar opacities. IMPRESSION: Stable portable chest including right basilar pigtail drainage catheter and left PICC. Small right pleural effusion and probable bibasilar atelectasis. Report Dictated on --- Final --- Dictated: 10/07/2020 10:49 am Dictating Physician: MD ARROYO KERISTEN L Signed Date and Time: 10/07/2020 10:52 am Signed by: MD ARROYO KERISTEN L Transcribed Date and Time: 10/07/2020 10:49 [facility] Work Phone: Albuminon 10-06-2020 Albumin [Mass/Vol] 2.7 g/dL Low 3.5 - 5.0 g/dL [facility] Work Phone: Albumin, Serumon 10-06-2020 Albumin [Mass/Vol] 2.7 g/dL Low 3.5-5.0 [facility] Comment on above: Performed By: #### A DDON #### [address] [place], [place] Basic Metabolic Panelon 04-0 Anion gap [Moles/Vol] 3 mmol/L Normal 3-13 [facility] Comment on above: Performed By: #### A DDON #### [address] [address] [place], [place] Calcium [Mass/Vol] 8.4 mg/dL Normal 8.4-10.4 [facility] Comment on above: Performed By: #### A DDON #### [address] [place], [place] CO2 [Moles/Vol] 29 mmol/L Normal 22-30 [facility] Comment on above: Performed By: #### A DDON #### [address] [place], [place] Creatinine [Mass/Vol] 2.23 mg/dL High 0.52-1.25 [facility] Comment on above: Performed By: #### A DDON #### [address] [place], [place] GFR/1.73 sq M.predicted among blacks MDRD (S/P/Bld) [Vol rate/Area] 31.3 mL/min/{1.73_m2} Abnormal >60 [facility] Comment on above: Performed By: #### A DDON #### [address] [place] [address] GFR/1.73 sq M.predicted among non-blacks MDRD (S/P/Bld) [Vol rate/Area] 27.0 mL/min/{1.73_m2} Abnormal >60 [facility] Comment on above: Result Comment: KDIG O guidelines provide the following GFR categories: Stage GFR(ml/min/1.73 m2) Terms G1 >=90 Normal or high G2 60-89 Mildly decreased* G3a 45-59 Mildly to moderately decreased G3b 30-44 Moderately to severely decreased G4 15-29 Severely decreased G5 <15 Kidney failure *Relative to young adult level. In the absence of evidence of kidney damage, neither GFR category G1 nor G2 fulfill the criteria for CKD. The CKD-EPI equation is validated in individuals 18 years of age and older. Currently the best equation for estimating glomerular filtration rate (GFR) from serum creatinine in children is the Bedside Bocanegra equation. It is less accurate in patients with extremes of muscle mass, restriction of dietary protein, ingestion of creatine, extra-renal metabolism of creatinine, or treatment with medications that affect renal tubular creatinine secretion. Performed By: #### A DDON #### [address] [place] [address] Glucose [Mass/Vol] 106 mg/dL High 70-100 [facility] Comment on above: Performed By: #### A DDON #### [address] [place] [address] Urea nitrogen [Mass/Vol] 43 mg/dL High 7-20 [facility] Comment on above: Performed By: #### A DDON #### [address] [place] [address] Chloride [Moles/Vol] 106 mmol/L Normal 98-107 [facility] Comment on above: Performed By: #### A DDON #### [address] [address] Potassium [Moles/Vol] 3.7 mmol/L Normal 3.5-5.1 [facility] Comment on above: Performed By: #### A DDON #### [address] [place] [address] Sodium [Moles/Vol] 137 mmol/L Normal 135-145 [facility] [email or web address] [facility] Comment on above: Performed By: #### A DDON #### [facility] [email or web address] [facility] [address] [place] [address] Anion gap [Moles/Vol] 3 mmol/L 3 - 13 mmol/L [facility] Work Phone: Calcium [Mass/Vol] 8.4 mg/dL 8.4 - 10. 4 mg/dL [facility] Work Phone: Chloride [Moles/Vol] 106 mmol/L 98 - 10 7 mmol/L [facility] Work Phone: CO2 [Moles/Vol] 29 mmol/L 22 - 30 mmol/L [facility] Work Phone: Creatinine [Mass/Vol] 2.23 mg/dL High 0.52 - 1.25 mg/dL [facility] Work Phone: EGFR IF NonAfrican Cambodian 27.0 mL/min Abnormal >60 [facility] Work Phone: Comment on above: KDIGO guidelines pro vide the following GFR categories: Stage GFR(ml/min/1.73 m2) Terms G1 >=90 Normal or high G2 60-89 Mildly decreased* G3a 45-59 Mildly to moderately decreased G3b 30-44 Moderately to severely decreased G4 15-29 Severely decreased G5 <15 Kidney failure *Relative to young adult level. In the absence of evidence of kidney damage, neither GFR category G1 nor G2 fulfill the criteria for CKD. The CKD-EPI equation is validated in individuals 18 years of age and older. Currently the best equation for estimating glomerular filtration rate (GFR) from serum creatinine in children is the Bedside Bocanegra equation. It is less accurate in patients with extremes of muscle mass, restriction of dietary protein, ingestion of creatine, extra-renal metabolism of creatinine, or treatment with medications that affect renal tubular creatinine secretion. GFR/1.73 sq M predicted among blacks MDRD (S/P/Bld) [Vol rate/Area] 31.3 mL/min/{1.73_m2} Abnormal >60 [facility] Work Phone: Glucose [Mass/Vol] 106 mg/dL High 70 - 100 mg/dL [facility] Work Phone: Potassium [Moles/Vol] 3.7 mmol/L 3.5 - 5.1 mmol/L [facility] Work Phone: Sodium [Moles/Vol] 137 mmol/L 135 - 145 mmol/L [facility] Work Phone: Urea nitrogen (BldV) [Mass/Vol] 43 mg/dL High 7 - 20 mg/dL [facility] Work Phone: CR Chest Portableon 10-07-19 21 CR Chest Portable Patient Name: AMAURY DAVIS [facility]#: [id number] Diagnostic Radiology ACCESSION EXAM DATE/TIME PROCEDURE ORDERING PROVIDER [id number] 10/06/2020 07:09 EDT CR Chest Portable KASSANDRA DAVIDSON CPT code 64765 Reason For Exam (CR Chest Portable) Post CT placement, eval interval change Report PORTABLE CHEST X-RAY CLINICAL INDICATION: Chest tube placement A portable frontal view of the chest was obtained. COMPARISON: 10/05/2020 FINDINGS: The heart size is borderline enlarged. Sternotomy wires and right basilar pigtail catheter are unchanged in position. Left-sided PICC line terminates near the junction of the superior vena cava and right atrium. There is a small right pleural effusion. Chronic interstitial changes are noted within the lungs. There is no evidence of pneumothorax. Subcutaneous emphysema within the right chest wall appears grossly similar. IMPRESSION: Left-sided PICC line has been uncoiled, now terminating in the superior vena cava near the junction of the right atrium. Otherwise, no change when compared to the prior examination. Report Dictated on Final Dictated: 10/06/2020 8:14 am Dictating Physician: MD KAN JONATHAN R Signed Date and Time: 10/06/2020 8:15 am Signed by: MD KAN JONATHAN R Transcribed Date and Time: 10/06/2020 8:14 Normal [facility] CREATININE, RANDOM URINEon 0 10-06-2020 Creatinine (U) [Mass/Vol] 17.4 mg/dL No Range [facility] Work Phone: Creatinine, Ur Randomon 04-0 Creatinine, Ur Random 17.4 mg/dL Normal No Range [facility] Comment on above: Performed By: #### B MP3, HEMDF #### [facility] [email or web address] [address] [address] EKG 12 Leadon 10-06-2020 Jax, [facility] Incoming Cardiology Results From [facility] - 10/06/2020 9:06 AM EDT [facility] Test Date: 2020-10-05 Pat Name: Amaury Blank Department: [facility] Room: [facility] Gender: M Cow Buyer: GERYR : 1940 Requested By: MACRINA ALCAZAR Order Number: [id number] Reading MD: Heather Saab Measurements Intervals [place] Rate: 71 P: 55 [place]: 159 QRS: -18 QRSD: 118 T: 32 QT: 455 QTc: 495 Interpretive Statements Sinus rhythm Inferior infarct, old Anteroseptal infarct, age indeterminate Electronically Signed On 10-06-2020 9:05:50 EDT by Heather KELLY Work Phone: [facility] Test Date: 2020-10-05 Pat Name: Amaury Blank Department: 1A6 Room: [facility] Gender: M Cow Buyer: GERRY : 1940 Requested By: MACRINA ALCAZAR Order Number: [id number] Reading MD: Heather Saab Measurements Intervals [place] Rate: 71 P: 55 [place]: 159 QRS: -18 QRSD: 118 T: 32 QT: 455 QTc: 495 Interpretive Statements Sinus rhythm Inferior infarct, old Anteroseptal infarct, age indeterminate Electronically Signed On 10-06-2020 9:05:50 EDT by Heather Saab [facility] Work Phone: EOSINOPHILS, URINEon 021 Bacteria, UA see comment [facility] Work Phone: Comment on above: yeast observed Eosinophil, Urine NO EOSINS SEEN [facility] Work Phone: Test Performed by [facility], [address] [place] [address] [facility] Work Phone: Eosinophils,Uron 10-06-2020 Bacteria identified Cx Nom (Unsp spec) see comment Normal [facility] Comment on above: Result Comment: farhan mcqueen observed Performed By: #### B MP3, HEMDF #### [address] [place] [address] Eosinophils Urine NO EOSINS SEEN Normal [facility] Comment on above: Performed By: #### B MP3, HEMDF #### [address] [place] [address] Magnesiumon 10-06-2020 Magnesium [Mass/Vol] 1.3 mg/dL Low 1.6-2.3 [facility] Comment on above: Performed By: #### A DDON #### [address] [place] [address] Magnesium [Mass/Vol] 1.3 mg/dL Low 1.6 - 2 .3 mg/dL [facility] Work Phone: Otheron 10-06-2020 Test Performed by [facility], [address] [place] [address] [facility] Work Phone: Interpretation and review of laboratory results Abnormal [facility] Work Phone: Test Performed by [facility], [address] [place] [address] [facility] Work Phone: Phosphoruson 10-06-2020 Phosphate [Mass/Vol] 4.0 mg/dL Normal 2.5-4.5 [facility] Comment on above: Performed By: #### A DDON #### [address] [place] [address] Phosphate [Mass/Vol] 4.0 mg/dL 2.5 - 4 .5 mg/dL [facility] Work Phone: Sodium, Ur Randomon 10-07-19 21 Sodium [Moles/Vol] 139 mmol/L High 30-90 [facility] Comment on above: Performed By: #### B MP3, HEMDF #### [facility] [address] Sodium, Urine, Randomon 04-0 Interpretation and review of laboratory results Abnormal [facility] Work Phone: Sodium (U) [Moles/Vol] 139 mmol/L High 30 - 90 mmol/L [facility] Work Phone: XR CHEST PORTABLEon 10-07-19 [facility], [facility] Incoming Radiology Results From [facility] - 10/06/2020 8:17 AM EDT Patient Name: AMAURY BLANK Diagnostic Radiology ACCESSION EXAM DATE/TIME PROCEDURE ORDERING PROVIDER [id number] 10/06/2020 07:09 EDT CR Chest Portable KASSANDRA DAVIDSON CPT code 82508 Reason For Exam (CR Chest Portable) Post CT placement, eval interval change Report PORTABLE CHEST X-RAY CLINICAL INDICATION: Chest tube placement A portable frontal view of the chest was obtained. COMPARISON: 10/05/2020 FINDINGS: The heart size is borderline enlarged. Sternotomy wires and right basilar pigtail catheter are unchanged in position. Left-sided PICC line terminates near the junction of the superior vena cava and right atrium. There is a small right pleural effusion. Chronic interstitial changes are noted within the lungs. There is no evidence of pneumothorax. Subcutaneous emphysema within the right chest wall appears grossly similar. IMPRESSION: Left-sided PICC line has been uncoiled, now terminating in the superior vena cava near the junction of the right atrium. Otherwise, no change when compared to the prior examination. Report Dictated on --- Final --- Dictated: 10/06/2020 8:14 am Dictating Physician: MD KAN JONATHAN R Signed Date and Time: 10/06/2020 8:15 am Signed by: MD KAN JONATHAN R Transcribed Date and Time: 10/06/2020 8:14 [facility] Work Phone: Patient Name: AMAURY DAVIS Diagnostic Radiology ACCESSION EXAM DATE/TIME PROCEDURE ORDERING PROVIDER [id number] 10/06/2020 07:09 EDT CR Chest Portable KASSANDRA DAVIDSON CPT code 13097 Reason For Exam (CR Chest Portable) Post CT placement, eval interval change Report PORTABLE CHEST X-RAY CLINICAL INDICATION: Chest tube placement A portable frontal view of the chest was obtained. COMPARISON: 10/05/2020 FINDINGS: The heart size is borderline enlarged. Sternotomy wires and right basilar pigtail catheter are unchanged in position. Left-sided PICC line terminates near the junction of the superior vena cava and right atrium. There is a small right pleural effusion. Chronic interstitial changes are noted within the lungs. There is no evidence of pneumothorax. Subcutaneous emphysema within the right chest wall appears grossly similar. IMPRESSION: Left-sided PICC line has been uncoiled, now terminating in the superior vena cava near the junction of the right atrium. Otherwise, no change when compared to the prior examination. Report Dictated on --- Final --- Dictated: 10/06/2020 8:14 am Dictating Physician: MD KAN JONATHAN R Signed Date and Time: 10/06/2020 8:15 am Signed by: MD KAN JONATHAN R Transcribed Date and Time: 10/06/2020 8:14 [facility] Work Phone: Basic Metabolic Panelon 04-0 Anion gap [Moles/Vol] 5 mmol/L Normal 3-13 [facility] Comment on above: Performed By: #### A DDON #### [facility] [address], [place] Calcium [Mass/Vol] 8.4 mg/dL Normal 8.4-10.4 [facility] Comment on above: Performed By: #### A DDON #### [facility] [address], [place] CO2 [Moles/Vol] 25 mmol/L Normal 22-30 [facility] Comment on above: Performed By: #### A DDON #### [facility] [address] [place], [place] Creatinine [Mass/Vol] 2.42 mg/dL High 0.52-1.25 [facility] Comment on above: Performed By: #### A DDON #### [facility] [email or web address] [facility] [address] [place] [address] GFR/1.73 sq M.predicted among blacks MDRD (S/P/Bld) [Vol rate/Area] 28.3 mL/min/{1.73_m2} Abnormal >60 [facility] Comment on above: Performed By: #### A DDON #### [facility] [address] [place] [address] GFR/1.73 sq M.predicted among non-blacks MDRD (S/P/Bld) [Vol rate/Area] 24.4 mL/min/{1.73_m2} Abnormal >60 [facility] Comment on above: Result Comment: KDIG O guidelines provide the following GFR categories: Stage GFR(ml/min/1.73 m2) Terms G1 >=90 Normal or high G2 60-89 Mildly decreased* G3a 45-59 Mildly to moderately decreased G3b 30-44 Moderately to severely decreased G4 15-29 Severely decreased G5 <15 Kidney failure *Relative to young adult level. In the absence of evidence of kidney damage, neither GFR category G1 nor G2 fulfill the criteria for CKD. The CKD-EPI equation is validated in individuals 18 years of age and older. Currently the best equation for estimating glomerular filtration rate (GFR) from serum creatinine in children is the Bedside Bocanegra equation. It is less accurate in patients with extremes of muscle mass, restriction of dietary protein, ingestion of creatine, extra-renal metabolism of creatinine, or treatment with medications that affect renal tubular creatinine secretion. Performed By: #### A DDON #### [facility] [email or web address] [facility] [address] [place] [address] Glucose [Mass/Vol] 111 mg/dL High 70-100 [facility] Comment on above: Performed By: #### A DDON #### [facility] [address] [place] [address] Urea nitrogen [Mass/Vol] 43 mg/dL High 7-20 [facility] Comment on above: Performed By: #### A DDON #### [facility] [address] [place] [address] Chloride [Moles/Vol] 112 mmol/L High 98-107 [facility] Comment on above: Performed By: #### A DDON #### [facility] [address] [place] [address] Potassium [Moles/Vol] 4.1 mmol/L Normal 3.5-5.1 [facility] Comment on above: Performed By: #### A DDON #### [facility] [address] [place] [address] Sodium [Moles/Vol] 142 mmol/L Normal 135-145 [facility] Comment on above: Performed By: #### A DDON #### [facility] [address] [place] [address] Anion gap [Moles/Vol] 5 mmol/L 3 - 13 mmol/L [facility] Work Phone: Calcium [Mass/Vol] 8.4 mg/dL 8.4 - 10. 4 mg/dL [facility] Work Phone: Chloride [Moles/Vol] 112 mmol/L High 98 - 10 7 mmol/L [facility] Work Phone: CO2 [Moles/Vol] 25 mmol/L 22 - 30 mmol/L [facility] Work Phone: Creatinine [Mass/Vol] 2.42 mg/dL High 0.52 - 1.25 mg/dL [facility] Work Phone: EGFR IF NonAfrican Cambodian 24.4 mL/min Abnormal >60 [facility] Work Phone: Comment on above: KDIGO guidelines pro vide the following GFR categories: Stage GFR(ml/min/1.73 m2) Terms G1 >=90 Normal or high G2 60-89 Mildly decreased* G3a 45-59 Mildly to moderately decreased G3b 30-44 Moderately to severely decreased G4 15-29 Severely decreased G5 <15 Kidney failure *Relative to young adult level. In the absence of evidence of kidney damage, neither GFR category G1 nor G2 fulfill the criteria for CKD. The CKD-EPI equation is validated in individuals 18 years of age and older. Currently the best equation for estimating glomerular filtration rate (GFR) from serum creatinine in children is the Bedside Bocanegra equation. It is less accurate in patients with extremes of muscle mass, restriction of dietary protein, ingestion of creatine, extra-renal metabolism of creatinine, or treatment with medications that affect renal tubular creatinine secretion. GFR/1.73 sq M predicted among blacks MDRD (S/P/Bld) [Vol rate/Area] 28.3 mL/min/{1.73_m2} Abnormal >60 [facility] Work Phone: Glucose [Mass/Vol] 111 mg/dL High 70 - 100 mg/dL [facility] Work Phone: Potassium [Moles/Vol] 4.1 mmol/L 3.5 - 5.1 mmol/L [facility] Work Phone: Sodium [Moles/Vol] 142 mmol/L 135 - 145 mmol/L [facility] Work Phone: Urea nitrogen (BldV) [Mass/Vol] 43 mg/dL High 7 - 20 mg/dL [facility] Work Phone: CR Chest Portableon 10-06-19 CR Chest Portable [facility]: [id number] ACCESSION EXAM DATE/TIME PROCEDURE ORDERING PROVIDER [id number] 10/05/2020 07:06 EDT CR Chest Portable KASSANDRA DAVIDSON CPT code 25367 Reason For Exam (CR Chest Portable) Post CT placement, eval interval change Report Examination: AP portable chest Clinical Indication: Post CT placement, eval interval change Comparison: 10/04/2020 Findings: Left-sided thoracostomy tube terminates at the mid SVC level but curves distally and could be extending to an azygos vein. Right-sided thoracostomy tube lower right lung. Small right pleural effusion. No visualized pneumothorax. Slight right lung volume loss with patchy right basilar atelectasis. Minimal atelectasis left mid and lower lung with good aeration. No focal consolidation. Trace left pleural effusion. Heart size at the upper limits of normal. Sternotomy wires are present. Subcutaneous air seen along the neck on the right and along the right lateral chest wall. Impression: 1. Left-sided PICC line catheter extending to the mid SVC with suggestion that the tip may be wedged within a azygos vein. Consider slight positional adjustment. 2. No significant interval change. Report Dictated on Final Dictated: 10/05/2020 8:03 am Dictating Physician: MD JENSEN ANTHONY J Signed Date and Time: 10/05/2020 8:06 am Signed by: MD JENSEN ANTHONY J Transcribed Date and Time: 10/05/2020 8:03 Normal [facility] Diagnostic Cardiac Environmental Research Project Manager Procedureon 10-05-2020 Heather Saab MD 1:46 PM Patient Name: Amaury Blank Date: 10/05/2020 Time: 1:43 PM Room/Bed: Room/bed info not found ROSI Guided Cardioversion Procedure Note Indication: atrial flutter Consent: Amaury Blank counseled regarding the procedure, its indications, risks, potential complications and alternatives, and any questions were answered. Consent was obtained to proceed. Pre-Medication: propofol intravenously Procedure: The patient was placed in the supine position and the chest area was exposed. The cardioversion pads were applied in the standard manner and configuration. The ROSI probe was introduced into the esophagus by the office copy selector Dr. Beasley under my direct supervision, smoothly. The ROSI images were obtained and the probe was removed without complications. There is no No LA or GUERO thrombus. We proceeded to cardioversion as detailed below. Attempt #1: The defibrillator was set on the synchronous mode and charged to 150 joules. A charge was then delivered which resulted in conversion to normal sinus rhythm. Attempt #2: Not necessary Attempt #3: Not necessary The patient tolerated the procedure well. Complications: None Plan: continue uninterrupted OAC and further management per cardiology team. Electronically Signed by: Heather Saab MD I, Dr. Katiana MD saw and evaluated the patient. I supervised Dr. Beasley and I was present during the entire procedure. Please, review TTE report to follow for further details. [facility] Work Phone: Echo 2D/3D ROSI w/wo Contrast on 10-05-2020 Echo 2D/3D ROSI w/wo Contrast Patient Name: AMAURY BLANK Ultrasound ACCESSION EXAM DATE/TIME PROCEDURE ORDERING PROVIDER [id number] 10/05/2020 14:06 EDT Echo 2D/3D ROSI w/wo [id number] Precious KIRK Reason For Exam (Echo 2D/3D ROSI w/wo Contrast) atrial flutter Report TRANSESOPHAGEAL ECHOCARDIOGRAM PATIENT: Amaury Blank STUDY DATE: 10/05/2020 R : 1940 AGE: 80 HT/WT: 180.3 cm (71 81.4 kg (179 in) lb) GENDER: M BP: 129 / 67 LOCATION: [facility] PATIENT Inpatient main STATUS: *ORDERING PHYSICIAN: * Carlos, *FELLOW: * Macrina Alcazar *RN: Isabella Jc *READING PHYSICIAN: * Heather Saab *CONTINUOUS PROCESS TANNER ROTARY DRUM: * Erum Patel [facility] INDICATIONS: Atrial flutter. CONCLUSIONS SUMMARY: 1. Left atrium: The atrium is severely dilated. There is no evidence of a thrombus in the atrial cavity or appendage revealed by acoustic contrast opacification. 2. Left ventricle: Systolic function is normal. The estimated ejection fraction is 55%. 3. Mitral valve: Mildly thickened with mild to moderate calcification involving the medial aspect of the posterior mitral valve leaflet. There is moderate, 2+ regurgitation, directed centrally. ERO: 0.2 cm^2. RECOMMENDATIONS: Proceed with DCCV. STUDY DATA: Transesophageal echocardiography was performed. Procedure: Initial setup. Surface ECG leads, blood pressure measurements, and pulse oximetric signals were monitored. Image quality was good. A transesophageal probe was inserted by the office copy selector under direct supervision of the attending cardiologistwith some difficulty. Complete 2D, 3D, complete spectral Doppler, and color flow Doppler images were acquired and archived for permanent storage and are available for subsequent review. Study status: Routine. Patient status: Inpatient. Location: [facility] laboratory. Consent: The risks, benefits, and alternatives to the Ultrasound Report procedure were explained to the patient and informed consent was obtained. Administered medications: Propofol. ECG RHYTHM: Atrial flutter FINDINGS LEFT VENTRICLE: The cavity size is normal. Wall thickness is normal. Systolic function is normal. The estimated ejection fraction is 55%. There are no regional wall motion abnormalities. RIGHT VENTRICLE: The cavity size is normal. Systolic function is normal. LEFT ATRIUM: Well visualized. The atrium is severely dilated. There is no evidence of a thrombus in the atrial cavity or appendage revealed by acoustic contrast opacification. No spontaneous echo contrast is observed. The appendage is well visualized and of normal size. Emptying velocity is normal. RIGHT ATRIUM: The atrium is moderately dilated. ATRIAL SEPTUM: No evidence of patent foramen ovale or atrial septal defect. MITRAL VALVE: Mildly thickened, mildly calcified leaflets. Doppler: There is moderate, 2+ regurgitation, directed centrally. ERO: 0.2 cm^2. AORTIC VALVE: Trileaflet; normal thickness, noncalcified leaflets. Thickening, consistent with sclerosis. Doppler: There is no stenosis. There is no regurgitation. TRICUSPID VALVE: Doppler: There is mild-moderate, 1-2+ regurgitation. PULMONIC VALVE: Doppler: There is no significant regurgitation. AORTA: There is atheromatous plaque. PULMONARY VEINS: Left upper pulmonary vein: Normal sized. The Doppler velocity and flow profile demonstrate flutter pattern. Right upper pulmonary vein: Normal sized. Doppler signals are not recordable. Measurements Value Reference Aortic root ID, M-L, ED 3.1 cm <4.2 Aortic root ID, STJ, ED 2.4 cm 2.3 - 3.5 Aortic root ID/bsa, STJ, ED 1.2 cm/m^2 1.1 - 1.9 Value Reference Ascending aorta ID, A-P, mid, ED 3.3 cm --------- Left atrium Value Reference LA appendage peak velocity 0.65 m/sec --------- Mitral valve Value Reference Mitral regurg vena contracta 0.47 cm --------- Aliasing velocity, MR PISA 0.33 m/sec --------- Mitral regurg PISA radius 0.76 cm --------- Mitral maximal regurg velocity, PISA 4.88 m/sec --------- Mitral regurg VTI, PISA 181.4 cm --------- ERO 0.2 cm^2 --------- Legend: (L) and (H) angelica values outside specified reference range. Electronically signed by Heather Saab 10/05/2020 17:47 Ultrasound Report Prior Signatures: Final Dictated: 10/05/2020 5:47 pm Dictating Physician: MD SAAB WISSAM Signed Date and Time: 10/05/2020 5:47 pm Signed by: MD SAAB WISSAM Normal [facility] Echocardiogram transesophage rick 10-05-2020 Jax, [facility] Incoming Cardiology Results From [facility] - 10/05/2020 5:47 PM EDT TRANSESOPHAGEAL ECHOCARDIOGRAM PATIENT: Amaury Blank STUDY DATE: 10/05/2020 R [facility]#: [id number] : 1940 AGE: 80 HT/WT: 180.3 cm (71 81.4 kg (179 in) lb) GENDER: M BP: 129 / 67 LOCATION: [facility] PATIENT Inpatient main STATUS: *ORDERING PHYSICIAN: * Carlos, *FELLOW: Macrina Dan *RN: Isabella Jc *READING PHYSICIAN: Heather Mejia *CONTINUOUS PROCESS TANNER ROTARY DRUM: Yen Patel [facility] INDICATIONS: Atrial flutter. CONCLUSIONS SUMMARY: 1. Left atrium: The atrium is severely dilated. There is no evidence of a thrombus in the atrial cavity or appendage revealed by acoustic contrast opacification. 2. Left ventricle: Systolic function is normal. The estimated ejection fraction is 55%. 3. Mitral valve: Mildly thickened with mild to moderate calcification involving the medial aspect of the posterior mitral valve leaflet. There is moderate, 2+ regurgitation, directed centrally. ERO: 0.2 cm^2. RECOMMENDATIONS: Proceed with DCCV. STUDY DATA: Transesophageal echocardiography was performed. Procedure: Initial setup. Surface ECG leads, blood pressure measurements, and pulse oximetric signals were monitored. Image quality was good. A transesophageal probe was inserted by the office copy selector under direct supervision of the attending cardiologistwith some difficulty. Complete 2D, 3D, complete spectral Doppler, and color flow Doppler images were acquired and archived for permanent storage and are available for subsequent review. Study status: Routine. Patient status: Inpatient. Location: [facility] laboratory. Consent: The risks, benefits, and alternatives to the procedure were explained to the patient and informed consent was obtained. Administered medications: Propofol. ECG RHYTHM: Atrial flutter FINDINGS LEFT VENTRICLE: The cavity size is normal. Wall thickness is normal. Systolic function is normal. The estimated ejection fraction is 55%. There are no regional wall motion abnormalities. RIGHT VENTRICLE: The cavity size is normal. Systolic function is normal. LEFT ATRIUM: Well visualized. The atrium is severely dilated. There is no evidence of a thrombus in the atrial cavity or appendage revealed by acoustic contrast opacification. No spontaneous echo contrast is observed. The appendage is well visualized and of normal size. Emptying velocity is normal. RIGHT ATRIUM: The atrium is moderately dilated. ATRIAL SEPTUM: No evidence of patent foramen ovale or atrial septal defect. MITRAL VALVE: Mildly thickened, mildly calcified leaflets. Doppler: There is moderate, 2+ regurgitation, directed centrally. ERO: 0.2 cm^2. AORTIC VALVE: Trileaflet; normal thickness, noncalcified leaflets. Thickening, consistent with sclerosis. Doppler: There is no stenosis. There is no regurgitation. TRICUSPID VALVE: Doppler: There is mild-moderate, 1-2+ regurgitation. PULMONIC VALVE: Doppler: There is no significant regurgitation. AORTA: There is atheromatous plaque. PULMONARY VEINS: Left upper pulmonary vein: Normal sized. The Doppler velocity and flow profile demonstrate flutter pattern. Right upper pulmonary vein: Normal sized. Doppler signals are not recordable. Measurements Value Reference Aortic root ID, M-L, ED 3.1 cm <4.2 Aortic root ID, STJ, ED 2.4 cm 2.3 - 3.5 Aortic root ID/bsa, STJ, ED 1.2 cm/m^2 1.1 - 1.9 Value Reference Ascending aorta ID, A-P, mid, ED 3.3 cm --------- Left atrium Value Reference LA appendage peak velocity 0.65 m/sec --------- Mitral valve Value Reference Mitral regurg vena contracta 0.47 cm --------- Aliasing velocity, MR PISA 0.33 m/sec --------- Mitral regurg PISA radius 0.76 cm --------- Mitral maximal regurg velocity, PISA 4.88 m/sec --------- Mitral regurg VTI, PISA 181.4 cm --------- ERO 0.2 cm^2 --------- Legend: (L) and (H) angelica values outside specified reference range. Electronically signed by Heather Saab 10/05/2020 17:47 Prior Signatures: [email or web address] Work Phone: TRANSESOPHAGEAL ECHOCARDIOGRAM PATIENT: Amaury Blank STUDY DATE: 10/05/2020 R : 1940 AGE: 80 HT/WT: 180.3 cm (71 81.4 kg (179 in) lb) GENDER: M BP: 129 / 67 LOCATION: [facility] PATIENT Inpatient main STATUS: *ORDERING PHYSICIAN: * Carlos, *FELLOW: * Macrina Alcazar *RN: * Isabella Zazueta *READING PHYSICIAN: * Heather Saab *CONTINUOUS PROCESS TANNER ROTARY DRUM: * Erum Patel [facility] INDICATIONS: Atrial flutter. CONCLUSIONS SUMMARY: 1. Left atrium: The atrium is severely dilated. There is no evidence of a thrombus in the atrial cavity or appendage revealed by acoustic contrast opacification. 2. Left ventricle: Systolic function is normal. The estimated ejection fraction is 55%. 3. Mitral valve: Mildly thickened with mild to moderate calcification involving the medial aspect of the posterior mitral valve leaflet. There is moderate, 2+ regurgitation, directed centrally. ERO: 0.2 cm^2. RECOMMENDATIONS: Proceed with DCCV. STUDY DATA: Transesophageal echocardiography was performed. Procedure: Initial setup. Surface ECG leads, blood pressure measurements, and pulse oximetric signals were monitored. Image quality was good. A transesophageal probe was inserted by the office copy selector under direct supervision of the attending cardiologistwith some difficulty. Complete 2D, 3D, complete spectral Doppler, and color flow Doppler images were acquired and archived for permanent storage and are available for subsequent review. Study status: Routine. Patient status: Inpatient. Location: [facility] laboratory. Consent: The risks, benefits, and alternatives to the procedure were explained to the patient and informed consent was obtained. Administered medications: Propofol. ECG RHYTHM: Atrial flutter FINDINGS LEFT VENTRICLE: The cavity size is normal. Wall thickness is normal. Systolic function is normal. The estimated ejection fraction is 55%. There are no regional wall motion abnormalities. RIGHT VENTRICLE: The cavity size is normal. Systolic function is normal. LEFT ATRIUM: Well visualized. The atrium is severely dilated. There is no evidence of a thrombus in the atrial cavity or appendage revealed by acoustic contrast opacification. No spontaneous echo contrast is observed. The appendage is well visualized and of normal size. Emptying velocity is normal. RIGHT ATRIUM: The atrium is moderately dilated. ATRIAL SEPTUM: No evidence of patent foramen ovale or atrial septal defect. MITRAL VALVE: Mildly thickened, mildly calcified leaflets. Doppler: There is moderate, 2+ regurgitation, directed centrally. ERO: 0.2 cm^2. AORTIC VALVE: Trileaflet; normal thickness, noncalcified leaflets. Thickening, consistent with sclerosis. Doppler: There is no stenosis. There is no regurgitation. TRICUSPID VALVE: Doppler: There is mild-moderate, 1-2+ regurgitation. PULMONIC VALVE: Doppler: There is no significant regurgitation. AORTA: There is atheromatous plaque. PULMONARY VEINS: Left upper pulmonary vein: Normal sized. The Doppler velocity and flow profile demonstrate flutter pattern. Right upper pulmonary vein: Normal sized. Doppler signals are not recordable. Measurements Value Reference Aortic root ID, M-L, ED 3.1 cm <4.2 Aortic root ID, STJ, ED 2.4 cm 2.3 - 3.5 Aortic root ID/bsa, STJ, ED 1.2 cm/m^2 1.1 - 1.9 Value Reference Ascending aorta ID, A-P, mid, ED 3.3 cm --------- Left atrium Value Reference LA appendage peak velocity 0.65 m/sec --------- Mitral valve Value Reference Mitral regurg vena contracta 0.47 cm --------- Aliasing velocity, MR PISA 0.33 m/sec --------- Mitral regurg PISA radius 0.76 cm --------- Mitral maximal regurg velocity, PISA 4.88 m/sec --------- Mitral regurg VTI, PISA 181.4 cm --------- ERO 0.2 cm^2 --------- Legend: (L) and (H) angelica values outside specified reference range. Electronically signed by Heather Saab 10/05/2020 17:47 Prior Signatures: [email or web address] Work Phone: Magnesiumon 10-05-2020 Magnesium [Mass/Vol] 1.3 mg/dL Low 1.6-2.3 [facility] [employer] Comment on above: Performed By: #### A DDON #### [facility] [address] [place] [phone] Magnesium [Mass/Vol] 1.3 mg/dL Low 1.6 - 2 .3 mg/dL [facility] Work Phone: Otheron 10-05-2020 Interpretation and review of laboratory results Abnormal [email or web address] Work Phone: Test Performed by [facility] [email or web address] [facility], [address] [place] [id number] [place], [place] [address] Work Phone: XR CHEST PORTABLEon 10-06-19 Jax, [facility] Incoming Radiology Results From [facility] - 10/05/2020 8:07 AM EDT Patient Name: AMAURY BLANK Diagnostic Radiology ACCESSION EXAM DATE/TIME PROCEDURE ORDERING PROVIDER [id number] 10/05/2020 07:06 EDT CR Chest Portable KASSANDRA DAVIDSON CPT code 01916 Reason For Exam (CR Chest Portable) Post CT placement, eval interval change Report Examination: AP portable chest Clinical Indication: Post CT placement, eval interval change Comparison: 10/04/2020 Findings: Left-sided thoracostomy tube terminates at the mid SVC level but curves distally and could be extending to an azygos vein. Right-sided thoracostomy tube lower right lung. Small right pleural effusion. No visualized pneumothorax. Slight right lung volume loss with patchy right basilar atelectasis. Minimal atelectasis left mid and lower lung with good aeration. No focal consolidation. Trace left pleural effusion. Heart size at the upper limits of normal. Sternotomy wires are present. Subcutaneous air seen along the neck on the right and along the right lateral chest wall. Impression: 1. Left-sided PICC line catheter extending to the mid SVC with suggestion that the tip may be wedged within a azygos vein. Consider slight positional adjustment. 2. No significant interval change. Report Dictated on --- Final --- Dictated: 10/05/2020 8:03 am Dictating Physician: MD JENSEN ANTHONY J Signed Date and Time: 10/05/2020 8:06 am Signed by: MD JENSEN ANTHONY J Transcribed Date and Time: 10/05/2020 8:03 [facility] Work Phone: [id number] Radiology ACCESSION EXAM DATE/TIME PROCEDURE ORDERING PROVIDER [id number] 10/05/2020 07:06 EDT CR Chest Portable ANNKASSANDRA [facility] CPT code 54547 Reason For Exam (CR Chest Portable) Post CT placement, eval interval change Report Examination: AP portable chest Clinical Indication: Post CT placement, eval interval change Comparison: 10/04/2020 Findings: Left-sided thoracostomy tube terminates at the mid SVC level but curves distally and could be extending to an azygos vein. Right-sided thoracostomy tube lower right lung. Small right pleural effusion. No visualized pneumothorax. Slight right lung volume loss with patchy right basilar atelectasis. Minimal atelectasis left mid and lower lung with good aeration. No focal consolidation. Trace left pleural effusion. Heart size at the upper limits of normal. Sternotomy wires are present. Subcutaneous air seen along the neck on the right and along the right lateral chest wall. Impression: 1. Left-sided PICC line catheter extending to the mid SVC with suggestion that the tip may be wedged within a azygos vein. Consider slight positional adjustment. 2. No significant interval change. Report Dictated on --- Final --- Dictated: 10/05/2020 8:03 am Dictating Physician: MD JENSEN ANTHONY J Signed Date and Time: 10/05/2020 8:06 am Signed by: MD JENSEN ANTHONY J Transcribed Date and Time: 10/05/2020 8:03 [facility] Work Phone: Basic Metabolic Panelon 04-0 Anion gap [Moles/Vol] 2 mmol/L Low 3-13 [facility] Comment on above: Performed By: #### B NP3, BMP3, MG3 #### [facility] [address] [place] [address] Calcium [Mass/Vol] 8.4 mg/dL Normal 8.4-10.4 [facility] Comment on above: Performed By: #### B NP3, BMP3, MG3 #### [facility] [address] [place] [address] CO2 [Moles/Vol] 25 mmol/L Normal 22-30 [facility] Comment on above: Performed By: #### B NP3, BMP3, MG3 #### [facility] [address] [place] [address] Glucose [Mass/Vol] 109 mg/dL High 70-100 [facility] Comment on above: Performed By: #### B NP3, BMP3, MG3 #### [facility] [address] [place] [address] Urea nitrogen [Mass/Vol] 40 mg/dL High 7-20 [facility] Comment on above: Performed By: #### B NP3, BMP3, MG3 #### [facility] [address] [place] [address] Creatinine [Mass/Vol] 2.14 mg/dL High 0.52-1.25 [facility] Comment on above: Performed By: #### B NP3, BMP3, MG3 #### [facility] [address] [place] [address] GFR/1.73 sq M.predicted among blacks MDRD (S/P/Bld) [Vol rate/Area] 32.9 mL/min/{1.73_m2} Abnormal >60 [facility] Comment on above: Performed By: #### B NP3ESTEFANY3, MG3 #### [address] [phone] GFR/1.73 sq M.predicted among non-blacks MDRD (S/P/Bld) [Vol rate/Area] 28.4 mL/min/{1.73_m2} Abnormal >60 [facility] Comment on above: Result Comment: KDIG O guidelines provide the following GFR categories: Stage GFR(ml/min/1.73 m2) Terms G1 >=90 Normal or high G2 60-89 Mildly decreased* G3a 45-59 Mildly to moderately decreased G3b 30-44 Moderately to severely decreased G4 15-29 Severely decreased G5 <15 Kidney failure *Relative to young adult level. In the absence of evidence of kidney damage, neither GFR category G1 nor G2 fulfill the criteria for CKD. The CKD-EPI equation is validated in individuals 18 years of age and older. Currently the best equation for estimating glomerular filtration rate (GFR) from serum creatinine in children is the Bedside Bocanegra equation. It is less accurate in patients with extremes of muscle mass, restriction of dietary protein, ingestion of creatine, extra-renal metabolism of creatinine, or treatment with medications that affect renal tubular creatinine secretion. Performed By: #### B SOURAV3 BMP3, MG3 #### [address] Potassium [Moles/Vol] 4.3 mmol/L Normal 3.5-5.1 [facility] Comment on above: Performed By: #### B NP3, BMP3, MG3 #### [address] Sodium [Moles/Vol] 142 mmol/L Normal 135-145 [facility] Comment on above: Performed By: #### B NP3, BMP3, MG3 #### [address] Chloride [Moles/Vol] 115 mmol/L High 98-107 [facility] Comment on above: Performed By: #### B NP3, BMP3, MG3 #### [facility] [address] [address] Anion gap [Moles/Vol] 2 mmol/L Low 3 - 13 mmol/L [facility] Work Phone: Calcium [Mass/Vol] 8.4 mg/dL 8.4 - 10. 4 mg/dL [facility] Work Phone: Chloride [Moles/Vol] 115 mmol/L High 98 - 10 7 mmol/L [facility] Work Phone: CO2 [Moles/Vol] 25 mmol/L 22 - 30 mmol/L [facility] Work Phone: Creatinine [Mass/Vol] 2.14 mg/dL High 0.52 - 1.25 mg/dL [facility] Work Phone: EGFR IF NonAfrican Cambodian 28.4 mL/min Abnormal >60 [facility] Work Phone: Comment on above: KDIGO guidelines pro vide the following GFR categories: Stage GFR(ml/min/1.73 m2) Terms G1 >=90 Normal or high G2 60-89 Mildly decreased* G3a 45-59 Mildly to moderately decreased G3b 30-44 Moderately to severely decreased G4 15-29 Severely decreased G5 <15 Kidney failure *Relative to young adult level. In the absence of evidence of kidney damage, neither GFR category G1 nor G2 fulfill the criteria for CKD. The CKD-EPI equation is validated in individuals 18 years of age and older. Currently the best equation for estimating glomerular filtration rate (GFR) from serum creatinine in children is the Bedside Bocanegra equation. It is less accurate in patients with extremes of muscle mass, restriction of dietary protein, ingestion of creatine, extra-renal metabolism of creatinine, or treatment with medications that affect renal tubular creatinine secretion. GFR/1.73 sq M predicted among blacks MDRD (S/P/Bld) [Vol rate/Area] 32.9 mL/min/{1.73_m2} Abnormal >60 [facility] Work Phone: Glucose [Mass/Vol] 109 mg/dL High 70 - 100 mg/dL [facility] Work Phone: Potassium [Moles/Vol] 4.3 mmol/L 3.5 - 5.1 mmol/L [facility] Work Phone: Sodium [Moles/Vol] 142 mmol/L 135 - 145 mmol/L [facility] Work Phone: Urea nitrogen (BldV) [Mass/Vol] 40 mg/dL High 7 - 20 mg/dL [facility] Work Phone: Brain Natriuretic Peptideon 10-04-2020 Interpretation and review of laboratory results Abnormal [facility] Work Phone: Natriuretic peptide B (Bld) [Mass/Vol] 19458 pg/mL High 0 - 450 pg/mL [facility] Work Phone: Test Performed by [facility], [address] [place] [id number] [facility] Work Phone: CR Chest Portableon 10-05-19 21 CR Chest Portable Patient Name: AMAURY DAVIS Diagnostic Radiology ACCESSION EXAM DATE/TIME PROCEDURE ORDERING PROVIDER [id number] 10/04/2020 06:50 EDT CR Chest Portable KASSANDRA DAVIDSON CPT code 27247 Reason For Exam (CR Chest Portable) Post CT placement, eval interval change Report CLINICAL INFORMATION: Status post VATS with right pneumothorax. Right-sided chest tube placement. CHEST X-RAY, PORTABLE, 0645 hours: An AP portable view is compared to the prior examination of the previous day. The projection is somewhat lordotic and the patient is rotated to the left. There is a new Heimlich-type chest tube in the right lower hemithorax. The basilar pneumothorax observed previously is not redemonstrated, but there is pleural fluid in the right lower hemithorax tracking superiorly in the lateral hemithorax. There is a small left pleural effusion. There is subcutaneous emphysema in the lateral right mid to lower chest wall. No other acute process or interval change. Report Dictated on Final Dictated: 10/04/2020 8:44 am Dictating Physician: MD MORENO HARLAN Signed Date and Time: 10/04/2020 8:46 am Signed by: MD MORENO HARLAN Transcribed Date and Time: 10/04/2020 8:44 Normal [facility] Magnesiumon 10-04-2020 Magnesium [Mass/Vol] 1.4 mg/dL Low 1.6-2.3 [facility] Comment on above: Performed By: #### B NP3, BMP3, MG3 #### [address] [address] Magnesium [Mass/Vol] 1.4 mg/dL Low 1.6 - 2 .3 mg/dL [facility] Work Phone: NT pro BNPon 10-04-2020 Natriuretic peptide B (Bld) [Mass/Vol] 15411 pg/mL High 0-450 [facility] Comment on above: Performed By: #### B NP3, BMP3, MG3 #### [address] [id number] Otheron 10-04-2020 Interpretation and review of laboratory results Abnormal [facility] Work Phone: Test Performed by [facility], [address] [place] [address] [facility] Work Phone: XR CHEST PORTABLEon 10-05-19 21 Jax, [facility] Incoming Radiology Results From [facility] - 10/04/2020 8:47 AM EDT Patient Name: AMAURY BLANK Diagnostic Radiology ACCESSION EXAM DATE/TIME PROCEDURE ORDERING PROVIDER [id number] 10/04/2020 06:50 EDT CR Chest Portable KASSANDRA DAVIDSON CPT code 83232 Reason For Exam (CR Chest Portable) Post CT placement, eval interval change Report CLINICAL INFORMATION: Status post VATS with right pneumothorax. Right-sided chest tube placement. CHEST X-RAY, PORTABLE, 0645 hours: An AP portable view is compared to the prior examination of the previous day. The projection is somewhat lordotic and the patient is rotated to the left. There is a new Heimlich-type chest tube in the right lower hemithorax. The basilar pneumothorax observed previously is not redemonstrated, but there is pleural fluid in the right lower hemithorax tracking superiorly in the lateral hemithorax. There is a small left pleural effusion. There is subcutaneous emphysema in the lateral right mid to lower chest wall. No other acute process or interval change. Report Dictated on --- Final --- Dictated: 10/04/2020 8:44 am Dictating Physician: MD MORENO HARLAN Signed Date and Time: 10/04/2020 8:46 am Signed by: MD MORENO HARLAN Transcribed Date and Time: 10/04/2020 8:44 [facility] Work Phone: [id number] Radiology ACCESSION EXAM DATE/TIME PROCEDURE ORDERING PROVIDER [id number] 10/04/2020 06:50 EDT CR Chest Portable KASSANDRA DAVIDSON CPT code 90399 Reason For Exam (CR Chest Portable) Post CT placement, eval interval change Report CLINICAL INFORMATION: Status post VATS with right pneumothorax. Right-sided chest tube placement. CHEST X-RAY, PORTABLE, 0645 hours: An AP portable view is compared to the prior examination of the previous day. The projection is somewhat lordotic and the patient is rotated to the left. There is a new Heimlich-type chest tube in the right lower hemithorax. The basilar pneumothorax observed previously is not redemonstrated, but there is pleural fluid in the right lower hemithorax tracking superiorly in the lateral hemithorax. There is a small left pleural effusion. There is subcutaneous emphysema in the lateral right mid to lower chest wall. No other acute process or interval change. Report Dictated on --- Final --- Dictated: 10/04/2020 8:44 am Dictating Physician: MD MORENO HARLAN Signed Date and Time: 10/04/2020 8:46 am Signed by: MD MORENO HARLAN Transcribed Date and Time: 10/04/2020 8:44 [facility] Work Phone: Albuminon 10-03-2020 Albumin [Mass/Vol] 2.9 g/dL Low 3.5 - 5.0 g/dL [facility] Work Phone: Albumin, Serumon 10-03-2020 Albumin [Mass/Vol] 2.9 g/dL Low 3.5-5.0 [facility] Comment on above: Performed By: #### B NP3, BMP3, MG3 #### [address] Basic Metabolic Panelon 04-0 Calcium [Mass/Vol] 8.8 mg/dL Normal 8.4-10.4 [facility] Comment on above: Performed By: #### C /TBC #### [place] [address] [address] [place], [place] Anion gap [Moles/Vol] 6 mmol/L Normal 3-13 [facility] Comment on above: Performed By: #### C /TBC #### [address] [place] [address] [place], [place] CO2 [Moles/Vol] 21 mmol/L Low 22-30 [facility] Comment on above: Performed By: #### C /TBC #### [place] [address] [place], [place] Creatinine [Mass/Vol] 1.89 mg/dL High 0.52-1.25 [facility] Comment on above: Performed By: #### C /TBC #### [address] GFR/1.73 sq M.predicted among blacks MDRD (S/P/Bld) [Vol rate/Area] 38.2 mL/min/{1.73_m2} Abnormal >60 [facility] Comment on above: Performed By: #### C /TBC #### [address] [place] [address] [place], [place] GFR/1.73 sq M.predicted among non-blacks MDRD (S/P/Bld) [Vol rate/Area] 33.0 mL/min/{1.73_m2} Abnormal >60 [facility] Comment on above: Result Comment: KDIG O guidelines provide the following GFR categories: Stage GFR(ml/min/1.73 m2) Terms G1 >=90 Normal or high G2 60-89 Mildly decreased* G3a 45-59 Mildly to moderately decreased G3b 30-44 Moderately to severely decreased G4 15-29 Severely decreased G5 <15 Kidney failure *Relative to young adult level. In the absence of evidence of kidney damage, neither GFR category G1 nor G2 fulfill the criteria for CKD. The CKD-EPI equation is validated in individuals 18 years of age and older. Currently the best equation for estimating glomerular filtration rate (GFR) from serum creatinine in children is the Bedside Bocanegra equation. It is less accurate in patients with extremes of muscle mass, restriction of dietary protein, ingestion of creatine, extra-renal metabolism of creatinine, or treatment with medications that affect renal tubular creatinine secretion. Performed By: #### C /TBC #### [address] [address] [address] [place], [place] Glucose [Mass/Vol] 106 mg/dL High 70-100 [facility] Comment on above: Performed By: #### C /TBC #### [place] [address] [place], [place] Urea nitrogen [Mass/Vol] 37 mg/dL High 7-20 [facility] Comment on above: Performed By: #### C /TBC #### [address] [place] [address] [place] [address] Potassium [Moles/Vol] 4.4 mmol/L Normal 3.5-5.1 [facility] Comment on above: Performed By: #### C /TBC #### [address] [place] [address] [place] [address] Chloride [Moles/Vol] 115 mmol/L High 98-107 [facility] Comment on above: Performed By: #### C /TBC #### [place] [address] [address] [place], [place] Sodium [Moles/Vol] 141 mmol/L Normal 135-145 [facility] Comment on above: Performed By: #### C /TBC #### [address] Anion gap [Moles/Vol] 6 mmol/L 3 - 13 mmol/L [facility] Work Phone: Calcium [Mass/Vol] 8.8 mg/dL 8.4 - 10. 4 mg/dL [facility] Work Phone: Chloride [Moles/Vol] 115 mmol/L High 98 - 10 7 mmol/L [facility] Work Phone: CO2 [Moles/Vol] 21 mmol/L Low 22 - 30 mmol/L [facility] Work Phone: Creatinine [Mass/Vol] 1.89 mg/dL High 0.52 - 1.25 mg/dL [facility] Work Phone: EGFR IF NonAfrican Cambodian 33.0 mL/min Abnormal >60 [facility] Work Phone: Comment on above: KDIGO guidelines pro vide the following GFR categories: Stage GFR(ml/min/1.73 m2) Terms G1 >=90 Normal or high G2 60-89 Mildly decreased* G3a 45-59 Mildly to moderately decreased G3b 30-44 Moderately to severely decreased G4 15-29 Severely decreased G5 <15 Kidney failure *Relative to young adult level. In the absence of evidence of kidney damage, neither GFR category G1 nor G2 fulfill the criteria for CKD. The CKD-EPI equation is validated in individuals 18 years of age and older. Currently the best equation for estimating glomerular filtration rate (GFR) from serum creatinine in children is the Bedside Bocanegra equation. It is less accurate in patients with extremes of muscle mass, restriction of dietary protein, ingestion of creatine, extra-renal metabolism of creatinine, or treatment with medications that affect renal tubular creatinine secretion. GFR/1.73 sq M predicted among blacks MDRD (S/P/Bld) [Vol rate/Area] 38.2 mL/min/{1.73_m2} Abnormal >60 [facility] Work Phone: Glucose [Mass/Vol] 106 mg/dL High 70 - 100 mg/dL [facility] Work Phone: Potassium [Moles/Vol] 4.4 mmol/L 3.5 - 5.1 mmol/L [facility] Work Phone: Sodium [Moles/Vol] 141 mmol/L 135 - 145 mmol/L [facility] Work Phone: Urea nitrogen (BldV) [Mass/Vol] 37 mg/dL High 7 - 20 mg/dL [facility] Work Phone: CR Chest Portableon 10-04-19 CR Chest Portable Patient Name: AMAURY DAVIS Diagnostic Radiology ACCESSION EXAM DATE/TIME PROCEDURE ORDERING PROVIDER [id number] 10/03/2020 01:59 EDT CR Chest Portable Charisse TannerRUSSELL GANDHI CPT code 39767 Reason For Exam (CR Chest Portable) Right pneumothorax Report HISTORY: Right pneumothorax Portable AP chest compared to most recent study from 09/21/2020. IMPRESSION: 1. Right small pneumothorax (possible frozen lung) mainly subpulmonic with small amount of right pleural fluid (and probable trace left pleural fluid). Bilateral infiltrative appearing areas lower lung denney 2. Moderate right chest wall emphysema 3. 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, osteopenia with degenerative changes AC joints Report Dictated on Workstation: [id number] Final Dictated: 10/03/2020 2:24 am Dictating Physician: MD LALA WILLIAM Signed Date and Time: 10/03/2020 2:30 am Signed by: MD LALA WILLIAM Transcribed Date and Time: 10/03/2020 2:24 [address] [facility] CT CHEST WO CONTRASTon 10-03 Patient Name: AMAURY DAVIS Computed Tomography ACCESSION EXAM DATE/TIME PROCEDURE ORDERING PROVIDER [id number] 10/03/2020 11:[address] Thorax w/o Contrast KASSANDRA DAVIDSON CPT code 97497 Reason For Exam (CT Thorax w/o Contrast) Right hydropneumothorax Report EXAMINATION: CT of the Chest without Contrast. COMPARISON: 09/13/2020. REASON FOR STUDY: Right hydropneumothorax. TECHNIQUE: Contiguous axial 1 mm and orthogonal 3 mm images were extended from the thoracic inlet through the upper abdomen. FINDINGS: Mediastinum: Thyroid appears normal. No abnormal mass or fluid collection present. Vasculature: Coarse continuous calcifications are observed in the left anterior descending coronary artery. Aorta is atherosclerotic. Lungs, Airways And Pleura: Air-fluid level is observed in the right hemithorax with approximately 20% loss of volume; there is circumferential widening of the right pleural space. Small left pleural effusion is present with attendant dependent atelectatic changes. Soft Tissues: Extensive subcutaneous emphysema is present on the right. Bones: Osseous structures appear intact. Upper Abdomen: No significant findings. CONCLUSION(S): 1. Expanding right hydropneumothorax with approximately 20% loss of lung volume. Right pneumothorax is circumferential and, likely multiloculated. Computed Tomography Report 2. Small left pleural effusion and basilar atelectasis. 3. Right subcutaneous emphysema. Report Dictated on --- Final --- Dictated: 10/03/2020 2:36 pm Dictating Physician: MD CHANEY B NELSON Signed Date and Time: 10/03/2020 2:45 pm Signed by: MD CHANEY B NELSON Transcribed Date and Time: 10/03/2020 2:36 [facility] Work Phone: Jax, [facility] Incoming Radiology Results From [facility] - 10/03/2020 2:46 PM EDT Patient Name: AMAURY BLANK Computed Tomography ACCESSION EXAM DATE/TIME PROCEDURE ORDERING PROVIDER [id number] 10/03/2020 11:[address] Thorax w/o Contrast KASSANDRA DAVIDSON CPT code 61366 Reason For Exam (CT Thorax w/o Contrast) Right hydropneumothorax Report EXAMINATION: CT of the Chest without Contrast. COMPARISON: 09/13/2020. REASON FOR STUDY: Right hydropneumothorax. TECHNIQUE: Contiguous axial 1 mm and orthogonal 3 mm images were extended from the thoracic inlet through the upper abdomen. FINDINGS: Mediastinum: Thyroid appears normal. No abnormal mass or fluid collection present. Vasculature: Coarse continuous calcifications are observed in the left anterior descending coronary artery. Aorta is atherosclerotic. Lungs, Airways And Pleura: Air-fluid level is observed in the right hemithorax with approximately 20% loss of volume; there is circumferential widening of the right pleural space. Small left pleural effusion is present with attendant dependent atelectatic changes. Soft Tissues: Extensive subcutaneous emphysema is present on the right. Bones: Osseous structures appear intact. Upper Abdomen: No significant findings. CONCLUSION(S): 1. Expanding right hydropneumothorax with approximately 20% loss of lung volume. Right pneumothorax is circumferential and, likely multiloculated. Computed Tomography Report 2. Small left pleural effusion and basilar atelectasis. 3. Right subcutaneous emphysema. Report Dictated on --- Final --- Dictated: 10/03/2020 2:36 pm Dictating Physician: MD CHANEY B NELSON Signed Date and Time: 10/03/2020 2:45 pm Signed by: MD CHANEY B NELSON Transcribed Date and Time: 10/03/2020 2:36 [facility] Work Phone: CT Chest w/o Contraston CT Chest w/o Contrast Patient Name: AMAURY JAEGER Computed Tomography ACCESSION EXAM DATE/TIME PROCEDURE ORDERING PROVIDER [id number] 10/03/2020 11:[address] Thorax w/o Contrast KASSANDRA DAVIDSON CPT code 21754 Reason For Exam (CT Thorax w/o Contrast) Right hydropneumothorax Report EXAMINATION: CT of the Chest without Contrast. COMPARISON: 09/13/2020. REASON FOR STUDY: Right hydropneumothorax. TECHNIQUE: Contiguous axial 1 mm and orthogonal 3 mm images were extended from the thoracic inlet through the upper abdomen. FINDINGS: Mediastinum: Thyroid appears normal. No abnormal mass or fluid collection present. Vasculature: Coarse continuous calcifications are observed in the left anterior descending coronary artery. Aorta is atherosclerotic. Lungs, Airways And Pleura: Air-fluid level is observed in the right hemithorax with approximately 20% loss of volume; there is circumferential widening of the right pleural space. Small left pleural effusion is present with attendant dependent atelectatic changes. Soft Tissues: Extensive subcutaneous emphysema is present on the right. Bones: Osseous structures appear intact. Upper Abdomen: No significant findings. CONCLUSION(S): 1. Expanding right hydropneumothorax with approximately 20% loss of lung volume. Right pneumothorax is circumferential and, likely multiloculated. Computed Tomography Report 2. Small left pleural effusion and basilar atelectasis. 3. Right subcutaneous emphysema. Report Dictated on Final Dictated: 10/03/2020 2:36 pm Dictating Physician: MD CHANEY B NELSON Signed Date and Time: 10/03/2020 2:45 pm Signed by: MD CHANEY B NELSON Transcribed Date and Time: 10/03/2020 2:36 Normal [facility] CT GUIDED PLEURAL DRAINAGE W CATH PERCon 10-03-2020 [id number] Tomography ACCESSION EXAM DATE/TIME PROCEDURE ORDERING PROVIDER [id number] 10/03/2020 15:[address] Insert Cath Pleura w/ PAOLA, ACNP, JUS Carballo. Image CPT code 50031 Reason For Exam (CT Insert Cath Pleura w/ Image) Pneumothorax Right Report CLINICAL HISTORY: Status post VATS now with right-sided pneumothorax Procedures: CT-guided right-sided chest tube placement Physician: Dr. White MEDICATIONS: Local lidocaine EBL: Minimal. Contrast: None Specimen sent: None COMPLICATIONS: None Fluoroscopy Time: None Procedural details: Prior to the procedure red rules were performed which included patient name, date of , and procedure type. All of the risk, benefits, and alternative treatments were explained to the patient and informed consent was obtained and documented. The patient is currently on liquids. The increased risk of bleeding were explained. The patient was brought into the CT scanner and placed in a supine position. An audible timeout was performed. A CT scan of the patient's chest was performed and a suitable site for chest tube placement was identified. The overlying skin was prepped and draped in the usual sterile fashion. The overlying subcutaneous tissues were anesthetized using one percent lidocaine. Following this, a 10 Armenian small caliber chest tube was advanced into the right pleural space. Postplacement CT confirmed appropriate position of the chest tube. The lung was reinflated. A postprocedural CT scan was performed. The chest tube was then sutured to the patient's skin using 2-0 suture. The patient tolerated the procedure well. There were no immediate complications. FINDINGS: Successful reinflation of lung status post chest tube placement. Computed Tomography Report IMPRESSION: Successful uncomplicated CT-guided right-sided chest tube placement. Report Dictated on --- Final --- Dictated: 10/03/2020 3:49 pm Dictating Physician: MD WHITE YUN ROBERT Signed Date and Time: 10/03/2020 3:57 pm Signed by: MD WHITE YUN ROBERT Transcribed Date and Time: 10/03/2020 3:49 [facility] Work Phone: Jax, Kaceya Incoming Radiology Results From [facility] - 10/03/2020 3:58 PM EDT Patient Name: [facility]ANK [id number] Computed Tomography ACCESSION EXAM DATE/TIME PROCEDURE ORDERING PROVIDER [id number] 10/03/2020 15:[address] Insert Cath Pleura w/ PAOLA, EVARISTO JUS Carballo. Image CPT code 84829 Reason For Exam (CT Insert Cath Pleura w/ Image) Pneumothorax Right Report CLINICAL HISTORY: Status post VATS now with right-sided pneumothorax Procedures: CT-guided right-sided chest tube placement Physician: Dr. White MEDICATIONS: Local lidocaine EBL: Minimal. Contrast: None Specimen sent: None COMPLICATIONS: None Fluoroscopy Time: None Procedural details: Prior to the procedure red rules were performed which included patient name, date of , and procedure type. All of the risk, benefits, and alternative treatments were explained to the patient and informed consent was obtained and documented. The patient is currently on liquids. The increased risk of bleeding were explained. The patient was brought into the CT scanner and placed in a supine position. An audible timeout was performed. A CT scan of the patient's chest was performed and a suitable site for chest tube placement was identified. The overlying skin was prepped and draped in the usual sterile fashion. The overlying subcutaneous tissues were anesthetized using one percent lidocaine. Following this, a 10 Armenian small caliber chest tube was advanced into the right pleural space. Postplacement CT confirmed appropriate position of the chest tube. The lung was reinflated. A postprocedural CT scan was performed. The chest tube was then sutured to the patient's skin using 2-0 suture. The patient tolerated the procedure well. There were no immediate complications. FINDINGS: Successful reinflation of lung status post chest tube placement. Computed Tomography Report IMPRESSION: Successful uncomplicated CT-guided right-sided chest tube placement. Report Dictated on --- Final --- Dictated: 10/03/2020 3:49 pm Dictating Physician: MD WHITE YUN ROBERT Signed Date and Time: 10/03/2020 3:57 pm Signed by: MD WHITE YUN ROBERT Transcribed Date and Time: 10/03/2020 3:49 [facility] Work Phone: CT Insert Cath Pleura w/ Leland geon 10-03-2020 CT Insert Cath Pleura w/ Image Patient Name: AMAURY BLANK [facility]#: [id number] Computed Tomography ACCESSION EXAM DATE/TIME PROCEDURE ORDERING PROVIDER [id number] 10/03/2020 15:[address] Insert Cath Pleura w/ PAOLA, EVARISTO JUS CarballoMarielena Image CPT code 02043 Reason For Exam (CT Insert Cath Pleura w/ Image) Pneumothorax Right Report CLINICAL HISTORY: Status post VATS now with right-sided pneumothorax Procedures: CT-guided right-sided chest tube placement Physician: Dr. White MEDICATIONS: Local lidocaine EBL: Minimal. Contrast: None Specimen sent: None COMPLICATIONS: None Fluoroscopy Time: None Procedural details: Prior to the procedure red rules were performed which included patient name, date of , and procedure type. All of the risk, benefits, and alternative treatments were explained to the patient and informed consent was obtained and documented. The patient is currently on liquids. The increased risk of bleeding were explained. The patient was brought into the CT scanner and placed in a supine position. An audible timeout was performed. A CT scan of the patient's chest was performed and a suitable site for chest tube placement was identified. The overlying skin was prepped and draped in the usual sterile fashion. The overlying subcutaneous tissues were anesthetized using one percent lidocaine. Following this, a 10 Armenian small caliber chest tube was advanced into the right pleural space. Postplacement CT confirmed appropriate position of the chest tube. The lung was reinflated. A postprocedural CT scan was performed. The chest tube was then sutured to the patient's skin using 2-0 suture. The patient tolerated the procedure well. There were no immediate complications. FINDINGS: Successful reinflation of lung status post chest tube placement. Computed Tomography Report IMPRESSION: Successful uncomplicated CT-guided right-sided chest tube placement. Report Dictated on Final Dictated: 10/03/2020 3:49 pm Dictating Physician: MD PA, AMINA PRADHAN Signed Date and Time: 10/03/2020 3:57 pm Signed by: MD WHITE YUN ROBERT Transcribed Date and Time: 10/03/2020 3:49 Normal [facility] Folateon 10-03-2020 Folate 12.0 ng/mL Normal 2.8-20.0 [facility] Comment on above: Performed By: #### B NP3, BMP3, MG3 #### [address] [place] [address] [place] [address] Folate 12 ng/mL 2.8 - 20.0 ng/mL [facility] Work Phone: Iron AND TIBCon 10-03-2020 Saturation 35 % Normal 15-50 [facility] Comment on above: Performed By: #### B NP3, BMP3, MG3 #### [address] [place] [address] Total Iron Binding Cap. 115 ug/dL Low 261-497 S [facility] Comment on above: Performed By: #### B NP3, BMP3, MG3 #### [address] [address] Iron, Total 40 ug/dL Low 49-181 [facility] Comment on above: Performed By: #### B NP3, BMP3, MG3 #### [address] [address] [place] [address] Iron and TIBCon 10-03-2020 Interpretation and review of laboratory results Abnormal [facility] Work Phone: Iron [Mass/Vol] 40 ug/dL Low 49 - 181 ug/dL [facility] Work Phone: Sat 35 % 15 - 50 % [facility] Work Phone: TIBC 115 ug/dL Low 261 - 497 ug/dL [facility] Work Phone: Test Performed by [facility], [facility] [place] [address] [facility] Work Phone: Lipid Panelon 10-03-2020 Chol/HDL 2 Normal [facility] Comment on above: Result Comment: Ref Range: < 3 Low Risk for CHD 3-6 Mod Risk for CHD > 6 High Risk for CHD Performed By: #### B NP3, BMP3, MG3 #### [facility] [address] [place] [address] Cholesterol in HDL [Mass/Vol] 49 mg/dL Normal 40-60 [facility] Comment on above: Performed By: #### B NP3, BMP3, MG3 #### [facility] [address] [place] [address] Low Density Lipoprotein 28 mg/dL Normal <100 S [facility] Comment on above: Performed By: #### B NP3, BMP3, MG3 #### [facility] [address] [place] [address] Cholesterol [Mass/Vol] 93 mg/dL Normal < 200 [facility] Comment on above: Performed By: #### B NP3, BMP3, MG3 #### [email or web address] [address] [place] [address] Triglyceride [Mass/Vol] 79 mg/dL Normal <150 S [facility] Comment on above: Performed By: #### B NP3, BMP3, MG3 #### [email or web address] [facility] [address] [place] [address] Lipid panel - fastingon Cholesterol [Mass/Vol] 93 mg/dL <200 [facility] Work Phone: Cholesterol in HDL [Mass/Vol] 49 mg/dL 40 - 60 mg/dL [facility] Work Phone: Cholesterol in LDL [Mass/Vol] 28 mg/dL <100 [facility] Work Phone: Cholesterol.total/Maria E sterol in HDL [Mass ratio] 2 {ratio} [facility] Work Phone: Comment on above: Ref Range: < 3 Low Risk for CHD 3-6 Mod Risk for CHD > 6 High Risk for CHD Triglyceride [Mass/Vol] 79 mg/dL <150 S [facility] Work Phone: Magnesiumon 10-03-2020 Magnesium [Mass/Vol] 1.6 mg/dL Normal 1.6-2.3 [facility] [email or web address] [facility] Comment on above: Performed By: #### C /TBC #### [address] [address] Magnesium [Mass/Vol] 1.6 mg/dL 1.6 - 2 .3 mg/dL [facility] Work Phone: Otheron 10-03-2020 Test Performed by [facility], [address] [place] [address] [facility] Work Phone: Interpretation and review of laboratory results Abnormal [facility] Work Phone: Test Performed by [facility], [address] [place] [address] [facility] Work Phone: TSH without Reflexon 021 TSH Qn 2.826 u[IU]/mL 0.465 - 4.680 u[IU]/mL [facility] Work Phone: Test Performed by [facility], [address] [place] [address] [facility] Work Phone: Thyroid Stim. Hormoneon Thyroid Stim. Hormone 2.826 u[IU]/mL Normal 0.46 5-4.68 0 [facility] [email or web address] [facility] Comment on above: Performed By: #### B NP3, BMP3, MG3 #### [address] [address] Troponinon 10-03-2020 Troponin I.cardiac [Mass/Vol] 0.026 ng/mL 0.000 - 0.034 ng/mL [facility] Work Phone: Comment on above: . Test Performed by [facility], [address] [place] [address] [facility] Work Phone: Troponin Ion 10-03-2020 Troponin I.cardiac [Mass/Vol] 0.026 ng/mL Normal 0.000-0.03 4 [facility] [email or web address] [facility] Comment on above: Result Comment: . Performed By: #### B MP3, HEMDF #### [facility] [address] [place] [address] Vitamin B12on 10-03-2020 Cobalamin (Vitamin B12) [Mass/Vol] 737 pg/mL Normal 239-931 [facility] Comment on above: Performed By: #### B NP3, BMP3, MG3 #### [facility] [address] [place] [address] Cobalamin (Vitamin B12) [Mass/Vol] 737 pg/mL 239 - 931 pg/mL [facility] Work Phone: XR CHEST PORTABLEon 10-04-19 Patient Name: AMAURY DAVIS Diagnostic Radiology ACCESSION EXAM DATE/TIME PROCEDURE ORDERING PROVIDER [id number] 10/03/2020 01:59 EDT CR Chest Portable RUSSELL HICKEY CPT code 78089 Reason For Exam (CR Chest Portable) Right pneumothorax Report HISTORY: Right pneumothorax Portable AP chest compared to most recent study from 09/21/2020. IMPRESSION: 1. Right small pneumothorax (possible frozen lung) mainly subpulmonic with small amount of right pleural fluid (and probable trace left pleural fluid). Bilateral infiltrative appearing areas lower lung denney 2. Moderate right chest wall emphysema 3. 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, osteopenia with degenerative changes AC joints Report Dictated on Workstation: [id number] --- Final --- Dictated: 10/03/2020 2:24 am Dictating Physician: MD LALA WILLIAM Signed Date and Time: 10/03/2020 2:30 am Signed by: MD LALA WILLIAM Transcribed Date and Time: 10/03/2020 2:24 [facility] Work Phone: Jax, [facility] Incoming Radiology Results From [facility] - 10/03/2020 2:31 AM EDT Patient Name: AMAURY BLANK Diagnostic Radiology ACCESSION EXAM DATE/TIME PROCEDURE ORDERING PROVIDER [id number] 10/03/2020 01:59 EDT CR Chest Portable Charisse TannerOKSANA RUSSELL CPT code 88118 Reason For Exam (CR Chest Portable) Right pneumothorax Report HISTORY: Right pneumothorax Portable AP chest compared to most recent study from 09/21/2020. IMPRESSION: 1. Right small pneumothorax (possible frozen lung) mainly subpulmonic with small amount of right pleural fluid (and probable trace left pleural fluid). Bilateral infiltrative appearing areas lower lung denney 2. Moderate right chest wall emphysema 3. 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 No organisms seen. No organisms seen. CULT./ST. BACTERIA --> Status: F No growth at 3 days. CULTURE ANAEROBE --> Status: F No growth of anaerobes at 5 days. Normal [facility] Comment on above: Performed By: #### C /TBC #### [address] [address] Basic Metabolic Panelon - Anion gap [Moles/Vol] 3 mmol/L Normal 3-13 [facility] Comment on above: Performed By: #### B MP3, HEMDF #### [facility] [address] [place] [address] Calcium [Mass/Vol] 8.6 mg/dL Normal 8.4-10.4 [facility] Comment on above: Performed By: #### B MP3, HEMDF #### [address] CO2 [Moles/Vol] 21 mmol/L Low 22-30 [facility] Comment on above: Performed By: #### B MP3, HEMDF #### [facility] [address] [place], [place] Glucose [Mass/Vol] 96 mg/dL Normal 70-100 [facility] Comment on above: Performed By: #### B MP3, HEMDF #### [facility] [address] [place], [place] Urea nitrogen [Mass/Vol] 38 mg/dL High 7-20 [facility] Comment on above: Performed By: #### B MP3, HEMDF #### [facility] [address] [place] [address] Creatinine [Mass/Vol] 1.85 mg/dL High 0.52-1.25 [facility] Comment on above: Performed By: #### B MP3, HEMDF #### [facility] [address] [place] [address] GFR/1.73 sq M.predicted among blacks MDRD (S/P/Bld) [Vol rate/Area] 39.2 mL/min/{1.73_m2} Abnormal >60 [facility] Comment on above: Performed By: #### B MP3, HEMDF #### [facility] [address] [place] [address] GFR/1.73 sq M.predicted among non-blacks MDRD (S/P/Bld) [Vol rate/Area] 33.8 mL/min/{1.73_m2} Abnormal >60 [facility] Comment on above: Result Comment: KDIG O guidelines provide the following GFR categories: Stage GFR(ml/min/1.73 m2) Terms G1 >=90 Normal or high G2 60-89 Mildly decreased* G3a 45-59 Mildly to moderately decreased G3b 30-44 Moderately to severely decreased G4 15-29 Severely decreased G5 <15 Kidney failure *Relative to young adult level. In the absence of evidence of kidney damage, neither GFR category G1 nor G2 fulfill the criteria for CKD. The CKD-EPI equation is validated in individuals 18 years of age and older. Currently the best equation for estimating glomerular filtration rate (GFR) from serum creatinine in children is the Bedside Bocanegra equation. It is less accurate in patients with extremes of muscle mass, restriction of dietary protein, ingestion of creatine, extra-renal metabolism of creatinine, or treatment with medications that affect renal tubular creatinine secretion. Performed By: #### B MP3, HEMDF #### [facility] [address] [place] [address] Potassium [Moles/Vol] 5.3 mmol/L High 3.5-5.1 [facility] Comment on above: Performed By: #### B MP3, HEMDF #### [facility] [address] [place] [address] Sodium [Moles/Vol] 129 mmol/L Low 135-145 [facility] Comment on above: Performed By: #### B MP3, HEMDF #### [facility] [address] [place] [address] Chloride [Moles/Vol] 105 mmol/L Normal 98-107 [facility] Comment on above: Performed By: #### B MP3, HEMDF #### [facility] [address] [place] [address] Anion gap [Moles/Vol] 3 mmol/L 3 - 13 mmol/L [facility] Work Phone: Calcium [Mass/Vol] 8.6 mg/dL 8.4 - 10. 4 mg/dL [facility] Work Phone: Chloride [Moles/Vol] 105 mmol/L 98 - 10 7 mmol/L [facility] Work Phone: CO2 [Moles/Vol] 21 mmol/L Low 22 - 30 mmol/L [facility] Work Phone: Creatinine [Mass/Vol] 1.85 mg/dL High 0.52 - 1.25 mg/dL [facility] Work Phone: EGFR IF NonAfrican Cambodian 33.8 mL/min Abnormal >60 [facility] Work Phone: Comment on above: KDIGO guidelines pro vide the following GFR categories: Stage GFR(ml/min/1.73 m2) Terms G1 >=90 Normal or high G2 60-89 Mildly decreased* G3a 45-59 Mildly to moderately decreased G3b 30-44 Moderately to severely decreased G4 15-29 Severely decreased G5 <15 Kidney failure *Relative to young adult level. In the absence of evidence of kidney damage, neither GFR category G1 nor G2 fulfill the criteria for CKD. The CKD-EPI equation is validated in individuals 18 years of age and older. Currently the best equation for estimating glomerular filtration rate (GFR) from serum creatinine in children is the Bedside Bocanegra equation. It is less accurate in patients with extremes of muscle mass, restriction of dietary protein, ingestion of creatine, extra-renal metabolism of creatinine, or treatment with medications that affect renal tubular creatinine secretion. GFR/1.73 sq M predicted among blacks MDRD (S/P/Bld) [Vol rate/Area] 39.2 mL/min/{1.73_m2} Abnormal >60 [facility] Work Phone: Glucose [Mass/Vol] 96 mg/dL 70 - 100 mg/dL [employer] Work Phone: [phone] Interpretation and review of laboratory results Abnormal [employer] Work Phone: [phone] Potassium [Moles/Vol] 5.3 mmol/L High 3.5 - 5.1 mmol/L [facility] Work Phone: [phone] Sodium [Moles/Vol] 129 mmol/L Low 135 - 145 mmol/L [facility] Work Phone: Urea nitrogen [Mass/Vol] 38 mg/dL High 7 - 20 mg/dL [facility] Work Phone: Test Performed by [facility], [address] [place] [address] [employer] Work Phone: CBC Auto Differentialon - Absolute Baso # 0.0 10*3/uL 0.0 - 0.2 10*3/uL [facility] Work Phone: Absolute Neut # 9.4 10*3/uL High 1.8 - 7.0 10*3/uL [facility] Work Phone: Basophils/100 WBC (Bld) 0.2 % 0.0 - 2.0 % [facility] Work Phone: Eosinophils (Bld) [#/Vol] 0.0 10*3/uL 0.0 - 0.5 10*3/uL [employer] Work Phone: [phone] Eosinophils/100 WBC (Bld) 0.1 % Low 1.0 - 6.0 % [employer] Work Phone: [phone] Erythrocyte distribution width (RBC) [Ratio] 15.5 % High 11.5 - 14.5 % [employer] Work Phone: [phone] Granulocytes/100 WBC (Bld) 87.9 % High 40.0 - 80.0 % [employer] Work Phone: [phone] Hematocrit (Bld) [Volume fraction] 26.5 % Low 40.0 - 52.0 % [employer] Work Phone: [phone] Hemoglobin (Bld) [Mass/Vol] 8.7 g/dL Low 13.0 - 18.0 g/dL [employer] Work Phone: [phone] Interpretation and review of laboratory results Abnormal [employer] Work Phone: [phone] Lymphocytes (Bld) [#/Vol] 0.7 10*3/uL Low 1.0 - 4.3 10*3/uL [employer] Work Phone: [phone] Lymphocytes/100 WBC (Bld) 6.2 % Low 20.0 - 40.0 % [employer] Work Phone: [phone] MCH (RBC) [Entitic mass] 33.4 pg 26.0 - 34.0 pg [employer] Work Phone: [phone] MCHC (RBC) [Mass/Vol] 33.0 % 32.0 - 36.0 % [employer] Work Phone: [phone] MCV (RBC) [Entitic vol] 101.0 fL High 80.0 - 98.0 fL [employer] Work Phone: [phone] Monocytes (Bld) [#/Vol] 0.6 10*3/uL 0.0 - 0.8 10*3/uL [facility] Work Phone: [phone] Monocytes/100 WBC (Bld) 5.6 % 2.0 - 10.0 % [employer] Work Phone: [phone] Platelet mean volume (Bld) [Entitic vol] 7.4 fL 7.4 - 10.4 fL [facility] Work Phone: Platelets (Bld) [#/Vol] 180 10*3/uL 140 - 440 10*3/uL [facility] Work Phone: RBC (Bld) [#/Vol] 2.62 10*6/uL Low 4.40 - 5.90 10*6/uL [facility] Work Phone: WBC (Bld) [#/Vol] 10.7 10*3/uL 3.6 - 10.7 10*3/uL [facility] Work Phone: Test Performed by [address] [address] [facility] Work Phone: CR Chest Portableon 09-22-19 21 CR Chest Portable Patient Name: AMAURY DAVIS Diagnostic Radiology ACCESSION EXAM DATE/TIME PROCEDURE ORDERING PROVIDER [id number] 09/21/2020 11:36 EDT CR Chest Portable CLARICE RAUSCH CPT code 77230 Reason For Exam (CR Chest Portable) line placement Report CLINICAL INFORMATION: PIC catheter placement for central venous access. CHEST X-RAY, PORTABLE, 1103: An AP portable view is compared to the prior examination of earlier the same day at 0533 hours. The patient exhibits a slightly limited inspiratory volume. There is a new left subclavian PIC catheter with the tip at the level of the confluence of the superior vena cava and right atrium. There are median sternotomy wires. There is no abnormality of the mediastinum or cardiac silhouette. There is mild lateral right mid and lower hemithorax pleural thickening, unchanged. No evidence of other acute process or interval change. IMPRESSION: 1. PIC catheter placement as described. 2. Lateral right pleural thickening. 3. No evidence of other acute process or interval change. Report Dictated on Final Dictated: 09/21/2020 11:21 am Dictating Physician: MD MORENO HARLAN Signed Date and Time: 09/21/2020 11:24 am Signed by: MD MORENO HARLAN Transcribed Date and Time: 09/21/2020 11:21 Normal [facility] CR Chest Portable [id number] Radiology ACCESSION EXAM DATE/TIME PROCEDURE ORDERING PROVIDER [id number] 09/21/2020 05:45 EDT CR Chest Portable Chadwick LIZ KYLAH CPT code 32348 Reason For Exam (CR Chest Portable) Right pleural effusion Report PORTABLE CHEST (Frontal View) History: Respiratory abnormality Comparison: 09/19/2020 Findings: Frontal portable chest view shows right and smaller left basilar atelectasis/infiltrate with right pleural thickening or effusion, not significantly changed from last exam. There is redemonstration of nodular-like opacity in the left midlung, similar to last exam but the spiculated cavitary left lower lobe lesion/mass described on the CT of 09/13/2020 could not be evaluated on the current exam. The heart is enlarged with median sternotomy noted. There is no pulmonary congestion, mediastinal widening, or other significant change from last exam. Report Dictated on Final Dictated: 09/21/2020 7:29 am Dictating Physician: MD RENEE AHMAD Signed Date and Time: 09/21/2020 7:36 am Signed by: MD RENEE AHMAD Transcribed Date and Time: 09/21/2020 7:29 Normal [facility] Hemogram w/ Autodiffon 09-21 Abs Baso Cnt 0.0 10*3/uL Normal 0.0-0.2 [facility] Comment on above: Performed By: #### B MP3, HEMDF #### [facility] [address] [place] [address] Abs Neutrophile Cnt 9.4 10*3/uL High 1.8-7.0 [facility] Comment on above: Performed By: #### B MP3, HEMDF #### [facility] [address] [place] [address] Basophils/100 WBC (Bld) 0.2 % Normal 0.0-2.0 S [facility] Comment on above: Performed By: #### B MP3, HEMDF #### [facility] [address] [place], [place] Eosinophils (Bld) [#/Vol] 0.0 10*3/uL Normal 0.0-0.5 [facility] Comment on above: Performed By: #### B MP3, HEMDF #### [facility] [address] [place], [place] Eosinophils/100 WBC (Bld) 0.1 % Low 1.0-6.0 [facility] Comment on above: Performed By: #### B MP3, HEMDF #### [address] [place], [place] Erythrocyte distribution width (RBC) [Ratio] 15.5 % High 11.5-14.5 [facility] Comment on above: Performed By: #### B MP3, HEMDF #### [address] [place], [place] Granulocytes/100 WBC (Bld) 87.9 % High 40.0-80.0 [facility] Comment on above: Performed By: #### B MP3, HEMDF #### [address] [place], [place] Hematocrit (Bld) [Volume fraction] 26.5 % Low 40.0-52.0 [facility] Comment on above: Performed By: #### B MP3, HEMDF #### [facility] [address] [place], [place] Hemoglobin (Bld) [Mass/Vol] 8.7 g/dL Low 13.0-18.0 [facility] Comment on above: Performed By: #### B MP3, HEMDF #### [facility] [address] [place], [place] Lymphocytes (Bld) [#/Vol] 0.7 10*3/uL Low 1.0-4.3 [facility] Comment on above: Performed By: #### B MP3, HEMDF #### [facility] [address] [place], [place] Lymphocytes/100 WBC (Bld) 6.2 % Low 20.0-40.0 [facility] Comment on above: Performed By: #### B MP3, HEMDF #### [address] [place], [place] MCH (RBC) [Entitic mass] 33.4 pg Normal 26.0-34.0 [facility] Comment on above: Performed By: #### B MP3, HEMDF #### [address] [address] [place], [place] MCHC 33.0 % Normal 32.0-36.0 [facility] Comment on above: Performed By: #### B MP3, HEMDF #### [address] [address] [place], [place] MCV (RBC) [Entitic vol] 101.0 fL High 80.0-98.0 S [facility] Comment on above: Performed By: #### B MP3, HEMDF #### [address] [place], [place] Monocytes (Bld) [#/Vol] 0.6 10*3/uL Normal 0.0-0.8 [facility] Comment on above: Performed By: #### B MP3, HEMDF #### [address] [address] [place], [place] Monocytes/100 WBC (Bld) 5.6 % Normal 2.0-10.0 S [facility] Comment on above: Performed By: #### B MP3, HEMDF #### [address] [address] [place], [place] Platelet mean volume (Bld) [Entitic vol] 7.4 fL Normal 7.4-10.4 [facility] Comment on above: Performed By: #### B MP3, HEMDF #### [address] [address] [place], [place] Platelets (Bld) [#/Vol] 180 10*3/uL Normal 140-440 [facility] Comment on above: Performed By: #### B MP3, HEMDF #### [address] [place] [address] RBC (Bld) [#/Vol] 2.62 10*6/uL Low 4.40-5.90 [facility] Comment on above: Performed By: #### B MP3, HEMDF #### [facility] [address] [place] [address] WBC (Bld) [#/Vol] 10.7 10*3/uL Normal 3.6-10.7 [facility] Comment on above: Performed By: #### B MP3, HEMDF #### [facility] [address] [place] [address] XR CHEST PORTABLEon 09-22-19 Jax, [facility] Incoming Radiology Results From [facility] - 09/21/2020 11:36 AM EDT Patient Name: AMAURY BLANK Diagnostic Radiology ACCESSION EXAM DATE/TIME PROCEDURE ORDERING PROVIDER [id number] 09/21/2020 11:36 EDT CR Chest Portable CLARICE RAUSCH CPT code 48031 Reason For Exam (CR Chest Portable) line placement Report CLINICAL INFORMATION: PIC catheter placement for central venous access. CHEST X-RAY, PORTABLE, 1103: An AP portable view is compared to the prior examination of earlier the same day at 0533 hours. The patient exhibits a slightly limited inspiratory volume. There is a new left subclavian PIC catheter with the tip at the level of the confluence of the superior vena cava and right atrium. There are median sternotomy wires. There is no abnormality of the mediastinum or cardiac silhouette. There is mild lateral right mid and lower hemithorax pleural thickening, unchanged. No evidence of other acute process or interval change. IMPRESSION: 1. PIC catheter placement as described. 2. Lateral right pleural thickening. 3. No evidence of other acute process or interval change. Report Dictated on --- Final --- Dictated: 09/21/2020 11:21 am Dictating Physician: MD MORENO HARLAN Signed Date and Time: 09/21/2020 11:24 am Signed by: MD MORENO HARLAN Transcribed Date and Time: 09/21/2020 11:21 [facility] Work Phone: Patient Name: AMAURY DAVIS [facility]#: [id number] Diagnostic Radiology ACCESSION EXAM DATE/TIME PROCEDURE ORDERING PROVIDER [id number] 09/21/2020 11:36 EDT CR Chest Portable CLARICE RAUSCH CPT code 38259 Reason For Exam (CR Chest Portable) line placement Report CLINICAL INFORMATION: PIC catheter placement for central venous access. CHEST X-RAY, PORTABLE, 1103: An AP portable view is compared to the prior examination of earlier the same day at 0533 hours. The patient exhibits a slightly limited inspiratory volume. There is a new left subclavian PIC catheter with the tip at the level of the confluence of the superior vena cava and right atrium. There are median sternotomy wires. There is no abnormality of the mediastinum or cardiac silhouette. There is mild lateral right mid and lower hemithorax pleural thickening, unchanged. No evidence of other acute process or interval change. IMPRESSION: 1. PIC catheter placement as described. 2. Lateral right pleural thickening. 3. No evidence of other acute process or interval change. Report Dictated on --- Final --- Dictated: 09/21/2020 11:21 am Dictating Physician: MD MORENO HARLAN Signed Date and Time: 09/21/2020 11:24 am Signed by: MD MORENO HARLAN Transcribed Date and Time: 09/21/2020 11:21 [facility] Work Phone: Patient Name: AMAURY DAVIS [facility]#: [id number] Diagnostic Radiology ACCESSION EXAM DATE/TIME PROCEDURE ORDERING PROVIDER [id number] 09/21/2020 05:45 EDT CR Chest Portable [place] LIZ SARAH CPT code 93403 Reason For Exam (CR Chest Portable) Right pleural effusion Report PORTABLE CHEST (Frontal View) History: Respiratory abnormality Comparison: 09/19/2020 Findings: Frontal portable chest view shows right and smaller left basilar atelectasis/infiltrate with right pleural thickening or effusion, not significantly changed from last exam. There is redemonstration of nodular-like opacity in the left midlung, similar to last exam but the spiculated cavitary left lower lobe lesion/mass described on the CT of 09/13/2020 could not be evaluated on the current exam. The heart is enlarged with median sternotomy noted. There is no pulmonary congestion, mediastinal widening, or other significant change from last exam. Report Dictated on --- Final --- Dictated: 09/21/2020 7:29 am Dictating Physician: MD RENEE AHMAD Signed Date and Time: 09/21/2020 7:36 am Signed by: MD RENEE AHMAD Transcribed Date and Time: 09/21/2020 7:29 [facility] Work Phone: Jax, [facility] Incoming Radiology Results From [facility] - 09/21/2020 7:37 AM EDT [facility]: [id number] ACCESSION EXAM DATE/TIME PROCEDURE ORDERING PROVIDER [id number] 09/21/2020 05:45 EDT CR Chest Portable [place] LIZ SARAH CPT code 22283 Reason For Exam (CR Chest Portable) Right pleural effusion Report PORTABLE CHEST (Frontal View) History: Respiratory abnormality Comparison: 09/19/2020 Findings: Frontal portable chest view shows right and smaller left basilar atelectasis/infiltrate with right pleural thickening or effusion, not significantly changed from last exam. There is redemonstration of nodular-like opacity in the left midlung, similar to last exam but the spiculated cavitary left lower lobe lesion/mass described on the CT of 09/13/2020 could not be evaluated on the current exam. The heart is enlarged with median sternotomy noted. There is no pulmonary congestion, mediastinal widening, or other significant change from last exam. Report Dictated on --- Final --- Dictated: 09/21/2020 7:29 am Dictating Physician: MD RENEE AHMAD Signed Date and Time: 09/21/2020 7:36 am Signed by: EL-SHAAR, MD, AHMAD Transcribed Date and Time: 09/21/2020 7:29 [facility] Work Phone: Basic Metabolic Panelon 08-29 Calcium [Mass/Vol] 8.7 mg/dL Normal 8.4-10.4 [facility] Comment on above: Performed By: #### B MP3, HEMDF #### [facility] [address] [place] [address] Glucose [Mass/Vol] 186 mg/dL High 70-100 [facility] Comment on above: Performed By: #### B MP3, HEMDF #### [facility] [address] [place] [address] Anion gap [Moles/Vol] 6 mmol/L Normal 3-13 [facility] Comment on above: Performed By: #### B MP3, HEMDF #### [facility] [address] [place] [address] CO2 [Moles/Vol] 18 mmol/L Low 22-30 [facility] Comment on above: Performed By: #### B MP3, HEMDF #### [facility] [address] [place] [address] Creatinine [Mass/Vol] 1.73 mg/dL High 0.52-1.25 [facility] Comment on above: Performed By: #### B MP3, HEMDF #### [facility] [email or web address] [facility] [address] [place] [address] GFR/1.73 sq M.predicted among blacks MDRD (S/P/Bld) [Vol rate/Area] 42.5 mL/min/{1.73_m2} Abnormal >60 [facility] Comment on above: Performed By: #### B MP3, HEMDF #### [facility] [email or web address] [facility] [address] [place] [address] GFR/1.73 sq M.predicted among non-blacks MDRD (S/P/Bld) [Vol rate/Area] 36.7 mL/min/{1.73_m2} Abnormal >60 [facility] Comment on above: Result Comment: KDIG O guidelines provide the following GFR categories: Stage GFR(ml/min/1.73 m2) Terms G1 >=90 Normal or high G2 60-89 Mildly decreased* G3a 45-59 Mildly to moderately decreased G3b 30-44 Moderately to severely decreased G4 15-29 Severely decreased G5 <15 Kidney failure *Relative to young adult level. In the absence of evidence of kidney damage, neither GFR category G1 nor G2 fulfill the criteria for CKD. The CKD-EPI equation is validated in individuals 18 years of age and older. Currently the best equation for estimating glomerular filtration rate (GFR) from serum creatinine in children is the Bedside Bocanegra equation. It is less accurate in patients with extremes of muscle mass, restriction of dietary protein, ingestion of creatine, extra-renal metabolism of creatinine, or treatment with medications that affect renal tubular creatinine secretion. Performed By: #### B MP3, HEMDF #### [address] Urea nitrogen [Mass/Vol] 40 mg/dL High 7-20 [facility] Comment on above: Performed By: #### Terese MP3, HEMDF #### [place] [address] [place], [place] Chloride [Moles/Vol] 106 mmol/L Normal 98-107 [facility] Comment on above: Performed By: #### B MP3, HEMDF #### [address] Potassium [Moles/Vol] 5.2 mmol/L High 3.5-5.1 [facility] Comment on above: Performed By: #### Terese MP3, HEMDF #### [address] Sodium [Moles/Vol] 131 mmol/L Low 135-145 [facility] Comment on above: Performed By: #### B MP3, HEMDF #### [address] Anion gap [Moles/Vol] 6 mmol/L 3 - 13 mmol/L [facility] Work Phone: Calcium [Mass/Vol] 8.7 mg/dL 8.4 - 10. 4 mg/dL [facility] Work Phone: Chloride [Moles/Vol] 106 mmol/L 98 - 10 7 mmol/L [facility] Work Phone: CO2 [Moles/Vol] 18 mmol/L Low 22 - 30 mmol/L [facility] Work Phone: Creatinine [Mass/Vol] 1.73 mg/dL High 0.52 - 1.25 mg/dL [facility] Work Phone: EGFR IF NonAfrican Cambodian 36.7 mL/min Abnormal >60 [facility] Work Phone: Comment on above: KDIGO guidelines pro vide the following GFR categories: Stage GFR(ml/min/1.73 m2) Terms G1 >=90 Normal or high G2 60-89 Mildly decreased* G3a 45-59 Mildly to moderately decreased G3b 30-44 Moderately to severely decreased G4 15-29 Severely decreased G5 <15 Kidney failure *Relative to young adult level. In the absence of evidence of kidney damage, neither GFR category G1 nor G2 fulfill the criteria for CKD. The CKD-EPI equation is validated in individuals 18 years of age and older. Currently the best equation for estimating glomerular filtration rate (GFR) from serum creatinine in children is the Bedside Bocanegra equation. It is less accurate in patients with extremes of muscle mass, restriction of dietary protein, ingestion of creatine, extra-renal metabolism of creatinine, or treatment with medications that affect renal tubular creatinine secretion. GFR/1.73 sq M predicted among blacks MDRD (S/P/Bld) [Vol rate/Area] 42.5 mL/min/{1.73_m2} Abnormal >60 [facility] Work Phone: Glucose [Mass/Vol] 186 mg/dL High 70 - 100 mg/dL [facility] Work Phone: Interpretation and review of laboratory results Abnormal [facility] Work Phone: Potassium [Moles/Vol] 5.2 mmol/L High 3.5 - 5.1 mmol/L [facility] Work Phone: Sodium [Moles/Vol] 131 mmol/L Low 135 - 145 mmol/L [facility] Work Phone: Urea nitrogen [Mass/Vol] 40 mg/dL High 7 - 20 mg/dL [facility] Work Phone: Test Performed by [facility], [address] [place] [address] [facility] Work Phone: [phone] CBC Auto Differentialon 08-29 Absolute Baso # 0.0 10*3/uL 0.0 - 0.2 10*3/uL [facility] Work Phone: [phone] Absolute Neut # 7.0 10*3/uL 1.8 - 7.0 10*3/uL [facility] Work Phone: [phone] Basophils/100 WBC (Bld) 0.1 % 0.0 - 2.0 % [facility] Work Phone: [phone] Eosinophils (Bld) [#/Vol] 0.0 10*3/uL 0.0 - 0.5 10*3/uL [facility] Work Phone: [phone] Eosinophils/100 WBC (Bld) 0.0 % Low 1.0 - 6.0 % [facility] Work Phone: [phone] Erythrocyte distribution width (RBC) [Ratio] 15.2 % High 11.5 - 14.5 % [facility] Work Phone: [phone] Granulocytes/100 WBC (Bld) 93.9 % High 40.0 - 80.0 % [employer] Work Phone: [phone] Hematocrit (Bld) [Volume fraction] 27.4 % Low 40.0 - 52.0 % [employer] Work Phone: [phone] Hemoglobin (Bld) [Mass/Vol] 8.9 g/dL Low 13.0 - 18.0 g/dL [employer] Work Phone: [phone] Interpretation and review of laboratory results Abnormal [employer] Work Phone: [phone] Lymphocytes (Bld) [#/Vol] 0.3 10*3/uL Low 1.0 - 4.3 10*3/uL [facility] Work Phone: [phone] Lymphocytes/100 WBC (Bld) 3.6 % Low 20.0 - 40.0 % [employer] Work Phone: [phone] MCH (RBC) [Entitic mass] 33.1 pg 26.0 - 34.0 pg [facility] Work Phone: [phone] MCHC (RBC) [Mass/Vol] 32.5 % 32.0 - 36.0 % [facility] Work Phone: MCV (RBC) [Entitic vol] 101.5 fL High 80.0 - 98.0 fL [facility] Work Phone: Monocytes (Bld) [#/Vol] 0.2 10*3/uL 0.0 - 0.8 10*3/uL [facility] Work Phone: Monocytes/100 WBC (Bld) 2.4 % 2.0 - 10.0 % [facility] Work Phone: Platelet mean volume (Bld) [Entitic vol] 8.6 fL 7.4 - 10.4 fL [facility] Work Phone: [phone] Platelets (Bld) [#/Vol] 152 10*3/uL 140 - 440 10*3/uL [facility] Work Phone: [phone] RBC (Bld) [#/Vol] 2.70 10*6/uL Low 4.40 - 5.90 10*6/uL [facility] Work Phone: WBC (Bld) [#/Vol] 7.6 10*3/uL 3.6 - 10.7 10*3/uL [facility] Work Phone: Test Performed by [facility], [address] [place] [address] [facility] Work Phone: CR Chest Portableon 09-21-19 21 CR Chest Portable [facility]: [id number] Radiology ACCESSION EXAM DATE/TIME PROCEDURE ORDERING PROVIDER [id number] 09/20/2020 05:52 EDT CR Chest Portable [place] LIZ SARAH CPT code 65167 Reason For Exam (CR Chest Portable) Right pleural effusion Report PORTABLE CHEST (Frontal View) History: Respiratory abnormality Comparison: 09/19/2020 Findings: Frontal portable chest view shows bilateral basilar atelectasis/infiltrate with small bilateral pleural effusions, all have decreased on the left but unchanged on the right compared to last exam. The heart is borderline enlarged with median sternotomy noted. One of two right chest tubes have be removed by the second chest tube remains. There is mild right chest wall emphysema. There is no pulmonary congestion, mediastinal widening, sizable pneumothorax or other significant interval change. Report Dictated on Final Dictated: 09/20/2020 7:33 am Dictating Physician: MD RENEE AHMAD Signed Date and Time: 09/20/2020 7:36 am Signed by: MD RENEE AHMAD Transcribed Date and Time: 09/20/2020 7:33 Normal [facility] CULTURE MYCOBACTERIA Conc.on 09-20-2020 CULTURE MYCOBACTERIA Conc. CULTURE MYCOBACTERIA Conc. --> Status: F No acid-fast bacilli isolated after 6 weeks incubation. STAIN ACID-FAST --> Status: F No acid-fast bacilli seen in smear. - Method: Fluorescent Stain - Method: Fluorescent Stain Normal [facility] Comment on above: Performed By: #### C /TBC #### [address] [address] EKG 12 Leadon 09-20-2020 Jax, [facility] Incoming Cardiology Results From [facility] - 09/20/2020 5:33 PM EDT [facility] Test Date: 2020-09-19 Pat Name: Amaury Blank Department: [facility] Room: 1[facility] Gender: M Cow Buyer: SUMEET : 1940 Requested By: KYLAH LIZ Order Number: [id number] Reading MD: Nicki Raymundo Measurements Intervals [place] Rate: 53 P: [place]: QRS: -30 QRSD: 115 T: -85 QT: 448 QTc: 421 Interpretive Statements Atrial flutter with predominant 4:1 AV block Nonspecific intraventricular conduction delay 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, old Electronically Signed On 09-20-2020 17:32:31 EDT by Nicki KLELY Work Phone: [facility] Test Date: 2020-09-19 Pat Name: Amaury Blank Department: 1AU Room: 1HLU Gender: M Cow Buyer: SUMEET : 1940 Requested By: KYLAH LIZ Order Number: [id number] Reading MD: Nicki Raymundo Measurements Intervals [place] Rate: 53 P: [place]: QRS: -30 QRSD: 115 T: -85 QT: 448 QTc: 421 Interpretive Statements Atrial flutter with predominant 4:1 AV block Nonspecific intraventricular conduction delay 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 - Method: Direct Exam by Calcofluor Stain [email or web address] Work Phone: Test Performed by [facility], [address] [place] [address] [email or web address] Work Phone: Hemogram w/ Autodiffon 09-20 Abs Baso Cnt 0.0 10*3/uL Normal 0.0-0.2 [facility] Comment on above: Performed By: #### B MP3, HEMDF #### [facility] [email or web address] [address] [address] Abs Neutrophile Cnt 7.0 10*3/uL Normal 1.8-7.0 [facility] [email or web address] [facility] Comment on above: Performed By: #### B MP3, HEMDF #### [facility] [email or web address] [address] [address] Basophils/100 WBC (Bld) 0.1 % Normal 0.0-2.0 S [facility] Comment on above: Performed By: #### B MP3, HEMDF #### [facility] [email or web address] [address] [address] Eosinophils (Bld) [#/Vol] 0.0 10*3/uL Normal 0.0-0.5 [facility] Comment on above: Performed By: #### B MP3, HEMDF #### [facility] [email or web address] [address] [address] Eosinophils/100 WBC (Bld) 0.0 % Low 1.0-6.0 [facility] Comment on above: Performed By: #### B MP3, HEMDF #### [facility] [address] [place] [address] Granulocytes/100 WBC (Bld) 93.9 % High 40.0-80.0 [facility] Comment on above: Performed By: #### B MP3, HEMDF #### [facility] [address] [place], [place] Lymphocytes (Bld) [#/Vol] 0.3 10*3/uL Low 1.0-4.3 [facility] Comment on above: Performed By: #### B MP3, HEMDF #### [facility] [address] [place], [place] Lymphocytes/100 WBC (Bld) 3.6 % Low 20.0-40.0 [facility] Comment on above: Performed By: #### B MP3, HEMDF #### [place] [address] [address] [place], [place] Monocytes (Bld) [#/Vol] 0.2 10*3/uL Normal 0.0-0.8 [facility] Comment on above: Performed By: #### B MP3, HEMDF #### [facility] [address] [place], [place] Monocytes/100 WBC (Bld) 2.4 % Normal 2.0-10.0 [facility] Comment on above: Performed By: #### B MP3, HEMDF #### [facility] [address] [place], [place] Erythrocyte distribution width (RBC) [Ratio] 15.2 % High 11.5-14.5 [facility] Comment on above: Performed By: #### B MP3, HEMDF #### [facility] [address] [place], [place] Hematocrit (Bld) [Volume fraction] 27.4 % Low 40.0-52.0 [facility] Comment on above: Performed By: #### B MP3, HEMDF #### [facility] [address] [place], [place] Hemoglobin (Bld) [Mass/Vol] 8.9 g/dL Low 13.0-18.0 [facility] Comment on above: Performed By: #### B MP3, HEMDF #### [place] [address] [address] [place], [place] MCH (RBC) [Entitic mass] 33.1 pg Normal 26.0-34.0 [facility] Comment on above: Performed By: #### B MP3, HEMDF #### [place] [address] [address] [place], [place] MCHC 32.5 % Normal 32.0-36.0 [facility] Comment on above: Performed By: #### B MP3, HEMDF #### [place] [address] [address] [place], [place] MCV (RBC) [Entitic vol] 101.5 fL High 80.0-98.0 S [facility] Comment on above: Performed By: #### B MP3, HEMDF #### [place] [address] [address] [place], [place] Platelet mean volume (Bld) [Entitic vol] 8.6 fL Normal 7.4-10.4 [facility] Comment on above: Performed By: #### B MP3, HEMDF #### [place] [address] [address] [place], [place] Platelets (Bld) [#/Vol] 152 10*3/uL Normal 140-440 [facility] Comment on above: Performed By: #### B MP3, HEMDF #### [place] [address] [address] [place], [place] RBC (Bld) [#/Vol] 2.70 10*6/uL Low 4.40-5.90 [facility] Comment on above: Performed By: #### B MP3, HEMDF #### [place] [address] [address] [place], [place] WBC (Bld) [#/Vol] 7.6 10*3/uL Normal 3.6-10.7 [facility] Comment on above: Performed By: #### B MP3, HEMDF #### [address] [place] [address] [place] [address] STAIN FUNGUSon 09-20-2020 STAIN FUNGUS STAIN FUNGUS --> Sta tus: F No fungal elements seen. - Method: Direct Exam by Calcofluor Stain - Method: Direct Exam by Calcofluor Stain Normal [facility] Comment on above: Performed By: #### C /TBC #### [address] [address] Surgical Pathologyon 021 Sodium [Moles/Vol] SEE BELOW [employer] Work Phone: [phone] DEPARTME NT [facility] PATHOLOGY AND LABORATORY MEDICINE [address] [place] [address] [phone] FINAL SURGICAL PATHOLOGY REPORT NAME: AMAURY BLANK : 1940 80 Y [facility] NO.: [id number] LOCATION: [address] [place] [address] PROCEDURE 09/19/2020 DATE: SURGEON: KASSANDRA DAVIDSON MD RECEIVED 09/19/2020 DATE: ATTENDING: KASSANDRA DAVIDSON MD REPORT DATE: 09/20/2020 COPIES TO: DIAGNOSIS: RIGHT PLEURAL BIOPSY - MARKED ORGANIZING ACUTE AND CHRONIC INFLAMMATION Comment: Biopsy consists of pleural tissue with extensive acute and chronic inflammation, with granulation tissue. 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 No evidence of granulomas or malignancy. [place] Signature> AMILCAR HYDE M.D. CLINICAL INFORMATION: Not provided SPECIMEN: PLEURAL BIOPSY GROSS DESCRIPTION: Received in formalin labeled right pleural biopsy are irregular, rubbery, pink-guzman to pink-iverson tissue segments which aggregate to 1 x 1 cm. Specimen is entirely submitted in a single cassette. JCK/JAF Disclaimer: The following statement applies to all immunohistochemistry, in situ hybridization, molecular studies, and immunofluorescence testing. The use of one or more reagents in the above tests is regulated as an analyte specific reagent (ASR). These tests were developed and their performance characteristics determined by the clinical laboratories of [facility]. They have not been cleared by the US Food and Drug Administration (FDA). The FDA has determined that such clearance or approval is not necessary. All the above immunostains were performed on paraffin embedded tissue. Appropriate positive and negative controls (where applicable) were run in parallel with the patient's specimen; these controls showed expected staining pattern, with acceptable intensity of staining. Immunohistochemical assays have not been validated on decalcified tissues. Results should be interpreted with caution given the raised possibility of false negativity on decalcified specimens. Professional Performing Location: [address] [address]. DEPARTMENT OF PATHOLOGY AND LABORATORY MEDICINE [place], [place] [address] [facility] Work Phone: XR CHEST PORTABLEon 09-21-19 Jax, [facility] Incoming [facility] - 09/20/2020 7:37 AM EDT Patient Name: AMAURY BLANK Diagnostic Radiology ACCESSION EXAM DATE/TIME PROCEDURE ORDERING PROVIDER [id number] 09/20/2020 05:52 EDT CR Chest Portable [place] LIZ SARAH CPT code 07089 Reason For Exam (CR Chest Portable) Right pleural effusion Report PORTABLE CHEST (Frontal View) History: Respiratory abnormality Comparison: 09/19/2020 Findings: Frontal portable chest view shows bilateral basilar atelectasis/infiltrate with small bilateral pleural effusions, all have decreased on the left but unchanged on the right compared to last exam. The heart is borderline enlarged with median sternotomy noted. One of two right chest tubes have be removed by the second chest tube remains. There is mild right chest wall emphysema. There is no pulmonary congestion, mediastinal widening, sizable pneumothorax or other significant interval change. Report Dictated on --- Final --- Dictated: 09/20/2020 7:33 am Dictating Physician: MD RENEE AHMAD Signed Date and Time: 09/20/2020 7:36 am Signed by: MD RENEE AHMAD Transcribed Date and Time: 09/20/2020 7:33 [facility] Work Phone: Patient Name: AMAURY DAVIS Diagnostic Radiology ACCESSION EXAM DATE/TIME PROCEDURE ORDERING PROVIDER [id number] 09/20/2020 05:52 EDT CR Chest Portable [place] LIZ SARAH CPT code 21535 Reason For Exam (CR Chest Portable) Right pleural effusion Report PORTABLE CHEST (Frontal View) History: Respiratory abnormality Comparison: 09/19/2020 Findings: Frontal portable chest view shows bilateral basilar atelectasis/infiltrate with small bilateral pleural effusions, all have decreased on the left but unchanged on the right compared to last exam. The heart is borderline enlarged with median sternotomy noted. One of two right chest tubes have be removed by the second chest tube remains. There is mild right chest wall emphysema. There is no pulmonary congestion, mediastinal widening, sizable pneumothorax or other significant interval change. Report Dictated on --- Final --- Dictated: 09/20/2020 7:33 am Dictating Physician: MD RENEE AHMAD Signed Date and Time: 09/20/2020 7:36 am Signed by: MD RENEE AHMAD Transcribed Date and Time: 09/20/2020 7:33 [facility] Work Phone: Basic Metabolic Panelon 08-29 Anion gap [Moles/Vol] 5 mmol/L Normal 3-13 [facility] Comment on above: Performed By: #### B NP3, BMP3, MG3 #### [place] [address] [address] [place], [place] Calcium [Mass/Vol] 8.6 mg/dL Normal 8.4-10.4 [facility] Comment on above: Performed By: #### B NP3, BMP3, MG3 #### [facility] [address], [place] CO2 [Moles/Vol] 21 mmol/L Low 22-30 [facility] Comment on above: Performed By: #### B NP3, BMP3, MG3 #### [place] [address] [place], [place] Creatinine [Mass/Vol] 1.79 mg/dL High 0.52-1.25 [facility] Comment on above: Performed By: #### B NP3, BMP3, MG3 #### [facility] [address] [place], [place] GFR/1.73 sq M.predicted among blacks MDRD (S/P/Bld) [Vol rate/Area] 40.8 mL/min/{1.73_m2} Abnormal >60 [facility] Comment on above: Performed By: #### B NP3, BMP3, MG3 #### [facility] [address] [place], [place] GFR/1.73 sq M.predicted among non-blacks MDRD (S/P/Bld) [Vol rate/Area] 35.2 mL/min/{1.73_m2} Abnormal >60 [facility] Comment on above: Result Comment: KDIG O guidelines provide the following GFR categories: Stage GFR(ml/min/1.73 m2) Terms G1 >=90 Normal or high G2 60-89 Mildly decreased* G3a 45-59 Mildly to moderately decreased G3b 30-44 Moderately to severely decreased G4 15-29 Severely decreased G5 <15 Kidney failure *Relative to young adult level. In the absence of evidence of kidney damage, neither GFR category G1 nor G2 fulfill the criteria for CKD. The CKD-EPI equation is validated in individuals 18 years of age and older. Currently the best equation for estimating glomerular filtration rate (GFR) from serum creatinine in children is the Bedside Bocanegra equation. It is less accurate in patients with extremes of muscle mass, restriction of dietary protein, ingestion of creatine, extra-renal metabolism of creatinine, or treatment with medications that affect renal tubular creatinine secretion. Performed By: #### B NP3, BMP3, MG3 #### [facility] [address] [place] [address] Glucose [Mass/Vol] 106 mg/dL High 70-100 [facility] Comment on above: Performed By: #### B NP3, BMP3, MG3 #### [facility] [address] [place] [address] Urea nitrogen [Mass/Vol] 44 mg/dL High 7-20 [facility] Comment on above: Performed By: #### Terees NP3, BMP3, MG3 #### [facility] [address] [place] [address] Chloride [Moles/Vol] 106 mmol/L Normal 98-107 [facility] Comment on above: Performed By: #### B NP3, BMP3, MG3 #### [facility] [address] [place] [address] Potassium [Moles/Vol] 4.8 mmol/L Normal 3.5-5.1 [facility] Comment on above: Performed By: #### B NP3, BMP3, MG3 #### [facility] [address] [place] [address] Sodium [Moles/Vol] 133 mmol/L Low 135-145 [facility] Comment on above: Performed By: #### B NP3, BMP3, MG3 #### [facility] [address] [place] [address] Anion gap [Moles/Vol] 5 mmol/L 3 - 13 mmol/L [facility] Work Phone: Calcium [Mass/Vol] 8.6 mg/dL 8.4 - 10. 4 mg/dL [facility] Work Phone: Chloride [Moles/Vol] 106 mmol/L 98 - 10 7 mmol/L [facility] Work Phone: CO2 [Moles/Vol] 21 mmol/L Low 22 - 30 mmol/L [facility] Work Phone: Creatinine [Mass/Vol] 1.79 mg/dL High 0.52 - 1.25 mg/dL [facility] Work Phone: EGFR IF NonAfrican Cambodian 35.2 mL/min Abnormal >60 [facility] Work Phone: Comment on above: KDIGO guidelines pro vide the following GFR categories: Stage GFR(ml/min/1.73 m2) Terms G1 >=90 Normal or high G2 60-89 Mildly decreased* G3a 45-59 Mildly to moderately decreased G3b 30-44 Moderately to severely decreased G4 15-29 Severely decreased G5 <15 Kidney failure *Relative to young adult level. In the absence of evidence of kidney damage, neither GFR category G1 nor G2 fulfill the criteria for CKD. The CKD-EPI equation is validated in individuals 18 years of age and older. Currently the best equation for estimating glomerular filtration rate (GFR) from serum creatinine in children is the Bedside Bocanegra equation. It is less accurate in patients with extremes of muscle mass, restriction of dietary protein, ingestion of creatine, extra-renal metabolism of creatinine, or treatment with medications that affect renal tubular creatinine secretion. GFR/1.73 sq M predicted among blacks MDRD (S/P/Bld) [Vol rate/Area] 40.8 mL/min/{1.73_m2} Abnormal >60 [facility] Work Phone: Glucose [Mass/Vol] 106 mg/dL High 70 - 100 mg/dL [facility] Work Phone: Interpretation and review of laboratory results Abnormal [facility] Work Phone: Potassium [Moles/Vol] 4.8 mmol/L 3.5 - 5.1 mmol/L [facility] Work Phone: Sodium [Moles/Vol] 133 mmol/L Low 135 - 145 mmol/L [facility] Work Phone: Urea nitrogen [Mass/Vol] 44 mg/dL High 7 - 20 mg/dL [facility] Work Phone: [phone] Test Performed by [employer], [place] [address] [facility] Work Phone: [phone] CBC Auto Differentialon 08-29 Erythrocyte distribution width (RBC) [Ratio] 14.8 % High 11.5 - 14.5 % [facility] Work Phone: [phone] Hematocrit (Bld) [Volume fraction] 28.3 % Low 40.0 - 52.0 % [facility] Work Phone: [phone] Hemoglobin (Bld) [Mass/Vol] 9.4 g/dL Low 13.0 - 18.0 g/dL [facility] Work Phone: [phone] Interpretation and review of laboratory results Abnormal [employer] Work Phone: [phone] MCH (RBC) [Entitic mass] 33.2 pg 26.0 - 34.0 pg [facility] Work Phone: [phone] MCHC (RBC) [Mass/Vol] 33.3 % 32.0 - 36.0 % [facility] Work Phone: [phone] MCV (RBC) [Entitic vol] 99.9 fL High 80.0 - 98.0 fL [facility] Work Phone: [phone] Platelet mean volume (Bld) [Entitic vol] 7.8 fL 7.4 - 10.4 fL [facility] Work Phone: [phone] Platelets (Bld) [#/Vol] 155 10*3/uL 140 - 440 10*3/uL [facility] Work Phone: [phone] RBC (Bld) [#/Vol] 2.84 10*6/uL Low 4.40 - 5.90 10*6/uL [facility] Work Phone: [phone] WBC (Bld) [#/Vol] 6.4 10*3/uL 3.6 - 10.7 10*3/uL [facility] Work Phone: [phone] Test Performed by [employer], [place] [address] [facility] Work Phone: [phone] CR Chest Portableon 09-20-19 CR Chest Portable [facility]: [id number]iology ACCESSION EXAM DATE/TIME PROCEDURE ORDERING PROVIDER [id number] 09/19/2020 10:32 EDT CR Chest Portable Chadwick LIZ, ELYRIA CPT code 47313 Reason For Exam (CR Chest Portable) Chest tube placement Report Portable chest 09/19/2020: Clinical Information: Chest tube placement. Findings: A single AP portable view of the chest was obtained at 1011 hours. Comparison was made to the prior study earlier study same date 0636 hours. The small caliber right-sided chest tube has been replaced by larger caliber chest tubes. The right pleural effusion is essentially unchanged. No pneumothorax is identified. There is no other interval change when compared to the earlier study same date. Report Dictated on Final Dictated: 09/19/2020 10:23 am Dictating Physician: MD JOSEPH RISA Signed Date and Time: 09/19/2020 10:24 am Signed by: MD JOSEPH RISA Transcribed Date and Time: 09/19/2020 10:23 Normal [facility] CR Chest Portable Patient [facility] [id number] Diagnostic Radiology ACCESSION EXAM DATE/TIME PROCEDURE ORDERING PROVIDER [id number] 09/19/2020 06:56 EDT CR Chest Portable Chadwick LIZ, ELYRIA CPT code 66790 Reason For Exam (CR Chest Portable) Right pleural effusion Report Portable chest 09/19/2020: Clinical Information: Chest tube placement. Findings: A single AP portable view of the chest was obtained at 636 hours. Comparison was made to the prior study prior day. The small caliber right-sided basal chest tube is unchanged. There is a small right pleural effusion. There is a patchy left perihilar infiltrate. The lung denney are otherwise clear. Report Dictated on Final Dictated: 09/19/2020 7:57 am Dictating Physician: MD JOSEPH RISA Signed Date and Time: 09/19/2020 8:03 am Signed by: MD OPAL, ABHILASH Transcribed Date and Time: 09/19/2020 7:57 Normal [facility] Hemogram w/ Autodiffon 09-19 Erythrocyte distribution width (RBC) [Ratio] 14.8 % High 11.5-14.5 [facility] Comment on above: Performed By: #### B NP3, BMP3, MG3 #### [place] [address] [place], [place] Hematocrit (Bld) [Volume fraction] 28.3 % Low 40.0-52.0 [facility] Comment on above: Performed By: #### B NP3, BMP3, MG3 #### [address] Hemoglobin (Bld) [Mass/Vol] 9.4 g/dL Low 13.0-18.0 [facility] Comment on above: Performed By: #### B NP3, BMP3, MG3 #### [address] MCH (RBC) [Entitic mass] 33.2 pg Normal 26.0-34.0 [facility] Comment on above: Performed By: #### B NP3, BMP3, MG3 #### [address] MCHC 33.3 % Normal 32.0-36.0 [facility] Comment on above: Performed By: #### B NP3, BMP3, MG3 #### [address] MCV (RBC) [Entitic vol] 99.9 fL High 80.0-98.0 S [facility] Comment on above: Performed By: #### B NP3, BMP3, MG3 #### [address] Platelet mean volume (Bld) [Entitic vol] 7.8 fL Normal 7.4-10.4 [facility] Comment on above: Performed By: #### B NP3, BMP3, MG3 #### [place] [address] [place] [place], [place] Platelets (Bld) [#/Vol] 155 10*3/uL Normal 140-440 [facility] Comment on above: Performed By: #### B NP3, BMP3, MG3 #### [place] [address] [place], [place] RBC (Bld) [#/Vol] 2.84 10*6/uL Low 4.40-5.90 [facility] Comment on above: Performed By: #### B NP3, BMP3, MG3 #### [place] [address] [place], [place] WBC (Bld) [#/Vol] 6.4 10*3/uL Normal 3.6-10.7 [facility] Comment on above: Performed By: #### B NP3, BMP3, MG3 #### [place] [address] [place], [place] Manual Diffon 09-19-2020 Abs Baso Cnt 0.1 10*3/uL Normal 0.0-0.2 [facility] Comment on above: Performed By: #### B NP3, BMP3, MG3 #### [address] Abs Eosin Cnt 0.0 10*3/uL Normal 0.0-0.5 [facility] Comment on above: Performed By: #### B NP3, BMP3, MG3 #### [place] [address] [address] [place], [place] Abs Lymph Cnt 1.1 10*3/uL Normal 1.1-4.5 [facility] Comment on above: Performed By: #### B NP3, BMP3, MG3 #### [address] Abs Monocyte Cnt 0.3 10*3/uL Normal 0.2-1.1 [facility] Comment on above: Performed By: #### B NP3, BMP3, MG3 #### [address] Abs Neutrophile Cnt 4.9 10*3/uL Normal 2.2-8.2 [facility] Comment on above: Performed By: #### B NP3, BMP3, MG3 #### [facility] [address] [place], [place] Bands 0 % Normal 0-3 [facility] Comment on above: Performed By: #### B NP3, BMP3, MG3 #### [facility] [address] [place], [place] Basophils 1 % Normal 0-2 [facility] Comment on above: Performed By: #### B NP3, BMP3, MG3 #### [place] [address] [address] [place], [place] Anil Cells Slight Normal [facility] Comment on above: Performed By: #### B NP3, BMP3, MG3 #### [place] [address] [address] [place], [place] Cells counted 100 Normal [facility] Comment on above: Performed By: #### B NP3, BMP3, MG3 #### [place] [address] [address] [place], [place] Elliptocytes Slight Normal [facility] Comment on above: Performed By: #### B NP3, BMP3, MG3 #### [place] [address] [address], [place] Eosinophils 0 % Low 1-6 [facility] Comment on above: Performed By: #### B NP3, BMP3, MG3 #### [facility] [address] [place], [place] Lymphocytes 17 % Low 20-40 [facility] Comment on above: Performed By: #### B NP3, BMP3, MG3 #### [place] [address] [address] [place], [place] Monocytes 5 % Normal 2-10 [facility] Comment on above: Performed By: #### B NP3, BMP3, MG3 #### [place] [address] [address], [place] Ovalocytes Slight Normal [facility] Comment on above: Performed By: #### B NP3, BMP3, MG3 #### [facility] [address] [place], [place] Poikilocytosis Slight Normal [facility] Comment on above: Performed By: #### B NP3, BMP3, MG3 #### [facility] [address] [place], [place] RBC Morphology ABNORMAL Normal [facility] Comment on above: Performed By: #### B NP3, BMP3, MG3 #### [facility] [address] [place], [place] Seg Neutrophils 77 % Normal 40-80 [facility] Comment on above: Performed By: #### B NP3, BMP3, MG3 #### [facility] [address] [place], [place] Manual Differentialon 2020 Absolute Baso # 0.1 10*3/uL 0.0 - 0.2 10*3/uL [facility] Work Phone: [phone] Absolute Eos # 0.0 10*3/uL 0.0 - 0.5 10*3/uL [facility] Work Phone: [phone] Absolute Lymph # 1.1 10*3/uL 1.1 - 4.5 10*3/uL [facility] Work Phone: [phone] Absolute Kendall # 0.3 10*3/uL 0.2 - 1.1 10*3/uL [facility] Work Phone: [phone] Absolute Neut # 4.9 10*3/uL 2.2 - 8.2 10*3/uL [facility] Work Phone: [phone] Bands 0 % 0 - 3 % [facility] Work Phone: [phone] Basophils 1 % 0 - 2 % [facility] Work Phone: [phone] [place] Cells Slight [facility] Work Phone: [phone] Elliptocytes Slight [facility] Work Phone: [phone] Eosinophils 0 % Low 1 - 6 % [facility] Work Phone: [phone] Interpretation and review of laboratory results Abnormal [facility] Work Phone: [phone] Lymphocytes 17 % Low 20 - 40 % [facility] Work Phone: [phone] Monocytes 5 % 2 - 10 % [facility] Work Phone: [phone] Ovalocytes Slight [facility] Work Phone: [phone] Poikilocytes Slight [facility] Work Phone: [phone] RBC morphology finding Nom (Bld) ABNORMAL [facility] Work Phone: [phone] Seg Neutrophils 77 % 40 - 80 % [facility] Work Phone: [phone] TOTAL CELLS COUNTED 100 [facility] Work Phone: [phone] Test Performed by [facility], [address] [place] [address] [facility] Work Phone: Op Noteon 09-19-2020 Op Note PATIENT: ANTWAN BLANK ADMISSION DATE: 09/11/2020 SURGERY DATE: 09/19/2020 DATE OF : 1940 AGE: 80 ADMITTING PHYSICIAN: Kassandra Davidson MD ATTENDING PHYSICIAN: Kassandra Davidson MD DICTATING PHYSICIAN: Kassandra Davidson MD OPERATIVE RECORD Procedure: 1. FLEXIBLE BRONCHOSCOPY. 2. RIGHT VIDEO-ASSISTED THORACOSCOPY. 3. CHEST WASHOUT. 4. PLEURAL BIOPSY. Preoperative Diagnosis: Right empyema. Postoperative Diagnosis: Right empyema and hemothorax. Anesthesia: General endotracheal. Home Therapy Teacher: Kylah Liz M.D. Estimated Blood Loss: 50 mL. Complications: None. Specimens: 1. Right lower lobe swab for culture. 2. Right parietal pleura biopsy. 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 Description of Procedure: The patient was brought to the operating room, placed supine on the operating table. General endotracheal anesthesia was achieved with a double-lumen tube. A small flexible bronchoscope was advanced into the airways and all bilateral airways was surveyed up to the lower lobe bronchus. They were normal and there was minimal mucus. The bronchoscope was removed. The patient was then positioned with the right side up. He was then prepped and draped in the usual sterile fashion. A time-out was performed and antibiotics were administered. A 1.5 cm incision was made in the eighth intercostal space in the posterior axillary line. This was dissected through the subcutaneous tissues into the hemithorax. On entrance, there was obvious hemothorax in the right pleura cavity. The lung was adhesed to the chest wall, but was brought downward with relative ease to allow for working space. A second working site was then placed in the mid axillary line in about the fifth intercostal space. Through this port, we were able to take down the lung from the chest wall to survey the entire hemithorax. Of note, the upper portion of the chest wall was not as inflamed as the lower portion of the chest wall. This area was quite inflamed and injected. The diaphragmatic surface was also inflamed and was quite bloody. We then performed pleural biopsies on the inferior portion of the right hemithorax. There was a portion on the lateral surface of the right lower lobe that appeared to be an abscess with a fistula communicating with the pleural cavity from the right lower lobe. This was swabbed and the swab sent for cultures. The chest was irrigated and suctioned out. Two tubes were placed, one 24-Armenian Ladonna in the basilar surface and a straight 24-Armenian chest tube was placed in the posterior part of the right hemithorax. Incisions closed. The patient tolerated the procedure well. He was extubated and taken to PACU for recovery. [employer] Job ID: [id number] Kassandra Davidson MD DOD:09/19/2020 09:44 A GABRIELA/mariel DOT:09/19/2020 10:52 A Job Number: [id number] Document Number: [id number] cc: Kassandra Davidson MD [facility] [address] [place] [address] [address] [facility] [address] Alessio Robertson MD [address] [facility] [address] [facility] [address] Normal [facility] Protime AND APTTon 1 aPTT Coag (Bld) [Time] 44.7 s High 20.0-30.5 [facility] Comment on above: Result Comment: NOTE : The therapeutic time for Heparin anticoagulation, based on Xa activity inhibition, is an APTT of 46-80 seconds. Performed By: #### B NP3, BMP3, MG3 #### [address] INR 1.1 Normal 0.9-1.1 [facility] Comment on above: Result Comment: Abhishek mmended Anticoagulant Therapy: SEE BELOW ----- INR of 2.0 - 3.0 : - Prophylaxis of Venous Thrombosis (high-risk surgery) - Treatment of Venous Thrombosis - Treatment of Pulmonary Embolism (Includes tissue heart valves, Acute Myocardial Infarction to prevent systemic embolism, Valvular Heart Disease, and Atrial Fibrillation) ----- INR of 2.5 - 3.5 : - Mechanical Prosthetic Valves (high risk) - If oral anticoagulant therapy is used to prevent Myocardial Infarction Performed By: #### B SOURAV3, ESTEFANY3, MG3 #### [address] PT Coag (PPP) [Time] 11.8 s Normal 9.0-12.0 [facility] Comment on above: Result Comment: . Performed By: #### B NP3, ESTEFANY3, MG3 #### [facility] [email or web address] [address] Protime/INR & PTTon 09-20-19 21 aPTT Coag (Bld) [Time] 44.7 s High 20.0 - 30.5 s [employer] Work Phone: Comment on above: NOTE: The therapeuti c time for Heparin anticoagulation, based on Xa activity inhibition, is an APTT of 46-80 seconds. INR Coag (PPP) [Relative time] 1.1 {INR} [employer] Work Phone: Comment on above: Recommended Anticoag ulant Therapy: SEE BELOW ----- INR of 2.0 - 3.0 : - Prophylaxis of Venous Thrombosis (high-risk surgery) - Treatment of Venous Thrombosis - Treatment of Pulmonary Embolism (Includes tissue heart valves, Acute Myocardial Infarction to prevent systemic embolism, Valvular Heart Disease, and Atrial Fibrillation) ----- INR of 2.5 - 3.5 : - Mechanical Prosthetic Valves (high risk) - If oral anticoagulant therapy is used to prevent Myocardial Infarction Interpretation and review of laboratory results Abnormal [employer] Work Phone: PT Coag (PPP) [Time] 11.8 s 9.0 - 1 2.0 s [employer] Work Phone: Comment on above: . Test Performed by [facility] [email or web address] [facility], [address] [place], [place] [address] [address] [employer] Work Phone: Surgical Pathologyon 021 Surgical Pathology [id number] [facility] PATHOLOGY AND LABORATORY MEDICINE [address] [place] [address] [phone] FINAL SURGICAL PATHOLOGY REPORT NAME: AMAURY BLANK : 1940 80 [address] [facility] NO.: [id number] LOCATION: [address] [place] [address] PROCEDURE 09/19/2020 DATE: SURGEON: KASSANDRA DAVIDSON MD RECEIVED 09/19/2020 DATE: ATTENDING: KASSANDRA DAVIDSON MD REPORT DATE: 09/20/2020 COPIES TO: DIAGNOSIS: RIGHT PLEURAL BIOPSY - MARKED ORGANIZING ACUTE AND CHRONIC INFLAMMATION Comment: Biopsy consists of pleural tissue with extensive acute and chronic inflammation, with granulation tissue. 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 No evidence of granulomas or malignancy. [place] Signature> AMILCAR HYDE M.D. CLINICAL INFORMATION: Not provided SPECIMEN: PLEURAL BIOPSY GROSS DESCRIPTION: Received in formalin labeled right pleural biopsy are irregular, rubbery, pink-guzman to pink-iverson tissue segments which aggregate to 1 x 1 cm. Specimen is entirely submitted in a single cassette. JCK/JAF Disclaimer: The following statement applies to all immunohistochemistry, in situ hybridization, molecular studies, and immunofluorescence testing. The use of one or more reagents in the above tests is regulated as an analyte specific reagent (ASR). These tests were developed and their performance characteristics determined by the clinical laboratories of [facility]. They have not been cleared by the US Food and Drug Administration (FDA). The FDA has determined that such clearance or approval is not necessary. All the above immunostains were performed on paraffin embedded tissue. Appropriate positive and negative controls (where applicable) were run in parallel with the patient's specimen; these controls showed expected staining pattern, with acceptable intensity of staining. Immunohistochemical assays have not been validated on decalcified tissues. Results should be interpreted with caution given the raised possibility of false negativity on decalcified specimens. Professional Performing Location: [place] [address]. DEPARTMENT OF PATHOLOGY AND LABORATORY MEDICINE [place], [place] [address] [email or web address] Normal [facility] TS GELon 09-19-2020 TS GEL ABO Group: O Rh, Gel: POS Antibody Screen Gel: NEG Normal [facility] Comment on above: Performed By: #### C /TBC #### [address] [address] TYPE AND SCREENon 09-19-2020 Sodium [Moles/Vol] O [facility] Work Phone: Sodium [Moles/Vol] Negative [facility] Work Phone: Sodium [Moles/Vol] Positive [facility] Work Phone: Test Performed by [facility], [address] [place] [address] [facility] Work Phone: XR CHEST PORTABLEon 09-20-19 Jax, [facility] Incoming Radiology Results From [facility] - 09/19/2020 10:32 AM EDT Patient Name: AMAURY BLANK Diagnostic Radiology ACCESSION EXAM DATE/TIME PROCEDURE ORDERING PROVIDER [id number] 09/19/2020 10:32 EDT CR Chest Portable [place] LIZ SARAH CPT code 38274 Reason For Exam (CR Chest Portable) Chest tube placement Report Portable chest 09/19/2020: Clinical Information: Chest tube placement. Findings: A single AP portable view of the chest was obtained at 1011 hours. Comparison was made to the prior study earlier study same date 0636 hours. The small caliber right-sided chest tube has been replaced by larger caliber chest tubes. The right pleural effusion is essentially unchanged. No pneumothorax is identified. There is no other interval change when compared to the earlier study same date. Report Dictated on --- Final --- Dictated: 09/19/2020 10:23 am Dictating Physician: MD JOSEPH RISA Signed Date and Time: 09/19/2020 10:24 am Signed by: MD JOSEPH RISA Transcribed Date and Time: 09/19/2020 10:23 [facility] Work Phone: Patient Name: AMAURY DAVIS Diagnostic Radiology ACCESSION EXAM DATE/TIME PROCEDURE ORDERING PROVIDER [id number] 09/19/2020 10:32 EDT CR Chest Portable [place] LIZ SARAH CPT code 54896 Reason For Exam (CR Chest Portable) Chest tube placement Report Portable chest 09/19/2020: Clinical Information: Chest tube placement. Findings: A single AP portable view of the chest was obtained at 1011 hours. Comparison was made to the prior study earlier study same date 0636 hours. The small caliber right-sided chest tube has been replaced by larger caliber chest tubes. The right pleural effusion is essentially unchanged. No pneumothorax is identified. There is no other interval change when compared to the earlier study same date. Report Dictated on --- Final --- Dictated: 09/19/2020 10:23 am Dictating Physician: MD JOSEPH RISA Signed Date and Time: 09/19/2020 10:24 am Signed by: MD JOSEPH RISA Transcribed Date and Time: 09/19/2020 10:23 [facility] Work Phone: [facility], [facility] Incoming Radiology Results From [facility] - 09/19/2020 8:05 AM EDT Patient Name: AMAURY BLANK Diagnostic Radiology ACCESSION EXAM DATE/TIME PROCEDURE ORDERING PROVIDER [id number] 09/19/2020 06:56 EDT CR Chest Portable [place] LIZ SARAH CPT code 99147 Reason For Exam (CR Chest Portable) Right pleural effusion Report Portable chest 09/19/2020: Clinical Information: Chest tube placement. Findings: A single AP portable view of the chest was obtained at 636 hours. Comparison was made to the prior study prior day. The small caliber right-sided basal chest tube is unchanged. There is a small right pleural effusion. There is a patchy left perihilar infiltrate. The lung denney are otherwise clear. Report Dictated on --- Final --- Dictated: 09/19/2020 7:57 am Dictating Physician: MD JOSEPH RISA Signed Date and Time: 09/19/2020 8:03 am Signed by: MD JOSEPH RISA Transcribed Date and Time: 09/19/2020 7:57 [facility] Work Phone: Patient Name: AMAURY DAVIS Diagnostic Radiology ACCESSION EXAM DATE/TIME PROCEDURE ORDERING PROVIDER [id number] 09/19/2020 06:56 EDT CR Chest Portable [place] ILZ SARAH CPT code 80426 Reason For Exam (CR Chest Portable) Right pleural effusion Report Portable chest 09/19/2020: Clinical Information: Chest tube placement. Findings: A single AP portable view of the chest was obtained at 636 hours. Comparison was made to the prior study prior day. The small caliber right-sided basal chest tube is unchanged. There is a small right pleural effusion. There is a patchy left perihilar infiltrate. The lung denney are otherwise clear. Report Dictated on --- Final --- Dictated: 09/19/2020 7:57 am Dictating Physician: MD OPAL, ABHILASH Signed Date and Time: 09/19/2020 8:03 am Signed by: MD JOSEPH RISA Transcribed Date and Time: 09/19/2020 7:57 [employer] Work Phone: CBCon 09-18-2020 Erythrocyte distribution width (RBC) [Ratio] 14.5 % 11.5 - 14.5 % [facility] Work Phone: Hematocrit (Bld) [Volume fraction] 30.0 % Low 40.0 - 52.0 % [facility] Work Phone: Hemoglobin (Bld) [Mass/Vol] 9.9 g/dL Low 13.0 - 18.0 g/dL [facility] Work Phone: Interpretation and review of laboratory results Abnormal [facility] Work Phone: MCH (RBC) [Entitic mass] 33.0 pg 26.0 - 34.0 pg [facility] Work Phone: MCHC (RBC) [Mass/Vol] 33.0 % 32.0 - 36.0 % [facility] Work Phone: MCV (RBC) [Entitic vol] 99.9 fL High 80.0 - 98.0 fL [employer] Work Phone: Platelet mean volume (Bld) [Entitic vol] 8.8 fL 7.4 - 10.4 fL [employer] Work Phone: Platelets (Bld) [#/Vol] 155 10*3/uL 140 - 440 10*3/uL [employer] Work Phone: RBC (Bld) [#/Vol] 3.00 10*6/uL Low 4.40 - 5.90 10*6/uL [facility] Work Phone: WBC (Bld) [#/Vol] 10.6 10*3/uL 3.6 - 10.7 10*3/uL [facility] Work Phone: Test Performed by [facility], [address] [place] [id number] [facility] Work Phone: CR Chest Portableon 09-19-19 21 CR Chest Portable [facility]: [id number] Radiology ACCESSION EXAM DATE/TIME PROCEDURE ORDERING PROVIDER [id number] 09/18/2020 06:45 EDT CR Chest Portable [place] LIZ SARAH CPT code 38404 Reason For Exam (CR Chest Portable) Right pleural effusion Report EXAM TYPE: RADIOLOGIC EXAMINATION, CHEST, SINGLE VIEW FRONTAL (CXR SINGLE VIEW) EXAM DATE AND TIME: 09/18/2020 6:45 AM EDT INDICATION: Right pleural effusion COMPARISON: Chest radiograph on 09/17/2020 TECHNIQUE: A single frontal view of the thorax was obtained and reviewed. Special views: None. FINDINGS/IMPRESSION: 1. Lines/Tubes/Devices/Hardwar e: Redemonstration of a right basilar pigtail catheter. Median sternotomy wires and mediastinal clips are again noted. 2. Lungs: Redemonstration of patchy perihilar airspace opacities, right greater than left. Subsegmental atelectasis is also present. No significant change. 3. Pleura: Layering mild to moderate right-sided pleural effusion, unchanged. Small left-sided pleural effusion is also present. No visualized pneumothorax. 4. Heart and mediastinum: Unchanged cardiomediastinal contours. Report Dictated on Final Dictated: 09/18/2020 7:55 am Dictating Physician: MD VELA NEIL Signed Date and Time: 09/18/2020 7:56 am Signed by: MD VELA NEIL Transcribed Date and Time: 09/18/2020 7:55 Normal [facility] Hemogramon 09-18-2020 Erythrocyte distribution width (RBC) [Ratio] 14.5 % Normal 11.5-14.5 [facility] Comment on above: Performed By: #### B NP3, BMP3, MG3 #### [facility] [address], [place] Hematocrit (Bld) [Volume fraction] 30.0 % Low 40.0-52.0 [facility] Comment on above: Performed By: #### B NP3, BMP3, MG3 #### [facility] [address], [place] Hemoglobin (Bld) [Mass/Vol] 9.9 g/dL Low 13.0-18.0 [facility] Comment on above: Performed By: #### B NP3, BMP3, MG3 #### [place] [address] [place], [place] MCH (RBC) [Entitic mass] 33.0 pg Normal 26.0-34.0 [facility] Comment on above: Performed By: #### B NP3, BMP3, MG3 #### [place] [address] [place], [place] MCHC 33.0 % Normal 32.0-36.0 [facility] Comment on above: Performed By: #### B NP3, BMP3, MG3 #### [place] [address] [place], [place] MCV (RBC) [Entitic vol] 99.9 fL High 80.0-98.0 S [facility] Comment on above: Performed By: #### B NP3, BMP3, MG3 #### [facility] [address], [place] Platelet mean volume (Bld) [Entitic vol] 8.8 fL Normal 7.4-10.4 [facility] Comment on above: Performed By: #### B NP3, BMP3, MG3 #### [facility] [address], [place] Platelets (Bld) [#/Vol] 155 10*3/uL Normal 140-440 [facility] Comment on above: Performed By: #### B NP3, BMP3, MG3 #### [place] [address] [place], [place] RBC (Bld) [#/Vol] 3.00 10*6/uL Low 4.40-5.90 [facility] Comment on above: Performed By: #### B NP3, BMP3, MG3 #### [place] [address] [place], [place] WBC (Bld) [#/Vol] 10.6 10*3/uL Normal 3.6-10.7 [facility] Comment on above: Performed By: #### B NP3, BMP3, MG3 #### [place] [address] [place], [place] Renal Functionon 09-18-2020 Anion gap [Moles/Vol] 5 mmol/L Normal 3-13 [facility] Comment on above: Performed By: #### B NP3, BMP3, MG3 #### [place] [address] [place], [place] Calcium [Mass/Vol] 8.5 mg/dL Normal 8.4-10.4 [facility] Comment on above: Performed By: #### B NP3, BMP3, MG3 #### [place] [address] [place], [place] CO2 [Moles/Vol] 20 mmol/L Low 22-30 [facility] Comment on above: Performed By: #### B NP3, BMP3, MG3 #### [place] [address] [place], [place] Creatinine [Mass/Vol] 1.80 mg/dL High 0.52-1.25 [facility] Comment on above: Performed By: #### B NP3, BMP3, MG3 #### [place] [address] [place], [place] GFR/1.73 sq M.predicted among blacks MDRD (S/P/Bld) [Vol rate/Area] 40.5 mL/min/{1.73_m2} Abnormal >60 [facility] Comment on above: Performed By: #### B NP3, BMP3, MG3 #### [facility] [address], [place] GFR/1.73 sq M.predicted among non-blacks MDRD (S/P/Bld) [Vol rate/Area] 35.0 mL/min/{1.73_m2} Abnormal >60 [facility] Comment on above: Result Comment: KDIG O guidelines provide the following GFR categories: Stage GFR(ml/min/1.73 m2) Terms G1 >=90 Normal or high G2 60-89 Mildly decreased* G3a 45-59 Mildly to moderately decreased G3b 30-44 Moderately to severely decreased G4 15-29 Severely decreased G5 <15 Kidney failure *Relative to young adult level. In the absence of evidence of kidney damage, neither GFR category G1 nor G2 fulfill the criteria for CKD. The CKD-EPI equation is validated in individuals 18 years of age and older. Currently the best equation for estimating glomerular filtration rate (GFR) from serum creatinine in children is the Bedside Bocanegra equation. It is less accurate in patients with extremes of muscle mass, restriction of dietary protein, ingestion of creatine, extra-renal metabolism of creatinine, or treatment with medications that affect renal tubular creatinine secretion. Performed By: #### B NP3, BMP3, MG3 #### [facility] [address], [place] Glucose [Mass/Vol] 112 mg/dL High 70-100 [facility] Comment on above: Performed By: #### B NP3, BMP3, MG3 #### [place] [address] [place], [place] Phosphate [Mass/Vol] 3.6 mg/dL Normal 2.5-4.5 [facility] Comment on above: Performed By: #### B NP3, BMP3, MG3 #### [address] Urea nitrogen [Mass/Vol] 50 mg/dL High 7-20 [facility] Comment on above: Performed By: #### B NP3, BMP3, MG3 #### [address] Albumin [Mass/Vol] 2.1 g/dL Low 3.5-5.0 [facility] Comment on above: Performed By: #### B NP3, BMP3, MG3 #### [facility] [address], [place] Chloride [Moles/Vol] 106 mmol/L Normal 98-107 [facility] Comment on above: Performed By: #### B NP3, BMP3, MG3 #### [facility] [address], [place] Potassium [Moles/Vol] 4.9 mmol/L Normal 3.5-5.1 [facility] Comment on above: Performed By: #### B NP3, BMP3, MG3 #### [address] Sodium [Moles/Vol] 131 mmol/L Low 135-145 [facility] Comment on above: Performed By: #### B NP3, BMP3, MG3 #### [address] Renal Function Panelon 09-18 Albumin [Mass/Vol] 2.1 g/dL Low 3.5 - 5.0 g/dL [facility] Work Phone: Anion gap [Moles/Vol] 5 mmol/L 3 - 13 mmol/L [facility] Work Phone: Calcium [Mass/Vol] 8.5 mg/dL 8.4 - 10. 4 mg/dL [facility] Work Phone: Chloride [Moles/Vol] 106 mmol/L 98 - 10 7 mmol/L [facility] Work Phone: CO2 [Moles/Vol] 20 mmol/L Low 22 - 30 mmol/L [facility] Work Phone: Creatinine [Mass/Vol] 1.8 mg/dL High 0.52 - 1.25 mg/dL [facility] Work Phone: EGFR IF NonAfrican Cambodian 35.0 mL/min Abnormal >60 [facility] Work Phone: Comment on above: KDIGO guidelines pro vide the following GFR categories: Stage GFR(ml/min/1.73 m2) Terms G1 >=90 Normal or high G2 60-89 Mildly decreased* G3a 45-59 Mildly to moderately decreased G3b 30-44 Moderately to severely decreased G4 15-29 Severely decreased G5 <15 Kidney failure *Relative to young adult level. In the absence of evidence of kidney damage, neither GFR category G1 nor G2 fulfill the criteria for CKD. The CKD-EPI equation is validated in individuals 18 years of age and older. Currently the best equation for estimating glomerular filtration rate (GFR) from serum creatinine in children is the Bedside Bocanegra equation. It is less accurate in patients with extremes of muscle mass, restriction of dietary protein, ingestion of creatine, extra-renal metabolism of creatinine, or treatment with medications that affect renal tubular creatinine secretion. GFR/1.73 sq M predicted among blacks MDRD (S/P/Bld) [Vol rate/Area] 40.5 mL/min/{1.73_m2} Abnormal >60 [facility] Work Phone: Glucose [Mass/Vol] 112 mg/dL High 70 - 100 mg/dL [facility] Work Phone: Interpretation and review of laboratory results Abnormal [facility] Work Phone: Phosphate [Mass/Vol] 3.6 mg/dL 2.5 - 4 .5 mg/dL [facility] Work Phone: Potassium [Moles/Vol] 4.9 mmol/L 3.5 - 5.1 mmol/L [facility] Work Phone: Sodium [Moles/Vol] 131 mmol/L Low 135 - 145 mmol/L [facility] Work Phone: Urea nitrogen [Mass/Vol] 50 mg/dL High 7 - 20 mg/dL [facility] Work Phone: Test Performed by [facility], [address] [place] [id number] [facility] Work Phone: XR CHEST PORTABLEon 09-19-19 21 Jax, [facility] - 09/18/2020 7:58 AM EDT Patient Name: AMAURY BLANK Diagnostic Radiology ACCESSION EXAM DATE/TIME PROCEDURE ORDERING PROVIDER 09/18/2020 06:45 EDT CR Chest Portable [place] LIZ, [place] CPT code 44355 Reason For Exam (CR Chest Portable) Right pleural effusion Report EXAM TYPE: RADIOLOGIC EXAMINATION, CHEST, SINGLE VIEW FRONTAL (CXR SINGLE VIEW) EXAM DATE AND TIME: 09/18/2020 6:45 AM EDT INDICATION: Right pleural effusion COMPARISON: Chest radiograph on 09/17/2020 TECHNIQUE: A single frontal view of the thorax was obtained and reviewed. Special views: None. FINDINGS/IMPRESSION: 1. Lines/Tubes/Devices/Hardwar e: Redemonstration of a right basilar pigtail catheter. Median sternotomy wires and mediastinal clips are again noted. 2. Lungs: Redemonstration of patchy perihilar airspace opacities, right greater than left. Subsegmental atelectasis is also present. No significant change. 3. Pleura: Layering mild to moderate right-sided pleural effusion, unchanged. Small left-sided pleural effusion is also present. No visualized pneumothorax. 4. Heart and mediastinum: Unchanged cardiomediastinal contours. Report Dictated on --- Final --- Dictated: 09/18/2020 7:55 am Dictating Physician: MD VELA NEIL Signed Date and Time: 09/18/2020 7:56 am Signed by: MD VELA NEIL Transcribed Date and Time: 09/18/2020 7:55 [facility] Work Phone: Patient Name: AMAURY DAVIS Diagnostic Radiology ACCESSION EXAM DATE/TIME PROCEDURE ORDERING PROVIDER 09/18/2020 06:45 EDT CR Chest Portable [place] LIZ, [place] CPT code 98034 Reason For Exam (CR Chest Portable) Right pleural effusion Report EXAM TYPE: RADIOLOGIC EXAMINATION, CHEST, SINGLE VIEW FRONTAL (CXR SINGLE VIEW) EXAM DATE AND TIME: 09/18/2020 6:45 AM EDT INDICATION: Right pleural effusion COMPARISON: Chest radiograph on 09/17/2020 TECHNIQUE: A single frontal view of the thorax was obtained and reviewed. Special views: None. FINDINGS/IMPRESSION: 1. Lines/Tubes/Devices/Hardwar e: Redemonstration of a right basilar pigtail catheter. Median sternotomy wires and mediastinal clips are again noted. 2. Lungs: Redemonstration of patchy perihilar airspace opacities, right greater than left. Subsegmental atelectasis is also present. No significant change. 3. Pleura: Layering mild to moderate right-sided pleural effusion, unchanged. Small left-sided pleural effusion is also present. No visualized pneumothorax. 4. Heart and mediastinum: Unchanged cardiomediastinal contours. Report Dictated on --- Final --- Dictated: 09/18/2020 7:55 am Dictating Physician: MD VELA NEIL Signed Date and Time: 09/18/2020 7:56 am Signed by: MD VELA NEIL Transcribed Date and Time: 09/18/2020 7:55 [employer] Work Phone: CBC Auto Differentialon 08-29 Absolute Baso # 0.1 10*3/uL 0.0 - 0.2 10*3/uL [facility] Work Phone: Absolute Neut # 6.6 10*3/uL 1.8 - 7.0 10*3/uL [facility] Work Phone: Basophils/100 WBC (Bld) 0.7 % 0.0 - 2.0 % [facility] Work Phone: Eosinophils (Bld) [#/Vol] 0.1 10*3/uL 0.0 - 0.5 10*3/uL [facility] Work Phone: Eosinophils/100 WBC (Bld) 1.5 % 1.0 - 6.0 % [facility] Work Phone: Erythrocyte distribution width (RBC) [Ratio] 14.6 % High 11.5 - 14.5 % [employer] Work Phone: Granulocytes/100 WBC (Bld) 80.8 % High 40.0 - 80.0 % [employer] Work Phone: Hematocrit (Bld) [Volume fraction] 33.2 % Low 40.0 - 52.0 % [employer] Work Phone: [phone] Hemoglobin (Bld) [Mass/Vol] 10.8 g/dL Low 13.0 - 18.0 g/dL [employer] Work Phone: [phone] Interpretation and review of laboratory results Abnormal [employer] Work Phone: [phone] Lymphocytes (Bld) [#/Vol] 0.9 10*3/uL Low 1.0 - 4.3 10*3/uL [employer] Work Phone: 1() [phone] Lymphocytes/100 WBC (Bld) 10.5 % Low 20.0 - 40.0 % [employer] Work Phone: [phone] MCH (RBC) [Entitic mass] 33.0 pg 26.0 - 34.0 pg [employer] Work Phone: [phone] MCHC (RBC) [Mass/Vol] 32.6 % 32.0 - 36.0 % [employer] Work Phone: [phone] MCV (RBC) [Entitic vol] 101.2 fL High 80.0 - 98.0 fL [employer] Work Phone: [phone] Monocytes (Bld) [#/Vol] 0.5 10*3/uL 0.0 - 0.8 10*3/uL [employer] Work Phone: 1() [phone] Monocytes/100 WBC (Bld) 6.5 % 2.0 - 10.0 % [employer] Work Phone: [phone] Platelet mean volume (Bld) [Entitic vol] 8.7 fL 7.4 - 10.4 fL [employer] Work Phone: [phone] Platelets (Bld) [#/Vol] 161 10*3/uL 140 - 440 10*3/uL [employer] Work Phone: [phone] RBC (Bld) [#/Vol] 3.28 10*6/uL Low 4.40 - 5.90 10*6/uL [employer] Work Phone: [phone] WBC (Bld) [#/Vol] 8.0 10*3/uL 3.6 - 10.7 10*3/uL [facility] Work Phone: Test Performed by [facility], [address] [place] [id number] [facility] Work Phone: CR Chest Portableon 09-18-19 CR Chest Portable Patient Name: AMAURY DAVIS Diagnostic Radiology ACCESSION EXAM DATE/TIME PROCEDURE ORDERING PROVIDER [id number] 09/17/2020 06:25 EDT CR Chest Portable [place] LIZ SARAH CPT code 41191 Reason For Exam (CR Chest Portable) Right pleural effusion Report CHEST CLINICAL INDICATION: Right pleural effusion TECHNIQUE: AP COMPARISON: 09/16/2020 FINDINGS: A right-sided chest tube is noted in stable position. Postsurgical changes are noted along the anterior mediastinum. The cardiac silhouette is enlarged. The mediastinum is unremarkable. There is no evidence of a pneumothorax. Patchy perihilar opacities are noted bilaterally with a trace right-sided pleural effusion. Degenerative changes are noted within the thoracic spine. IMPRESSION: Stable chest. Patchy bilateral perihilar opacities with a trace right-sided pleural effusion. Report Dictated on Final Dictated: 09/17/2020 7:58 am Dictating Physician: DO JANE RACHEL Signed Date and Time: 09/17/2020 7:59 am Signed by: DO JANE RACHEL Transcribed Date and Time: 09/17/2020 7:58 Normal [facility] CULTURE BLOODon 09-17-2020 Microscopic examination of blood, culture CULTURE BLOOD --> Status: F No growth at 5 days. Normal [facility] Comment on above: Performed By: #### C /TBC #### [address] [id number] CULTURE BLOOD (Two)on 2020 Microscopic examination of blood, culture CULTURE BLOOD (Two) --> Status: F No growth at 5 days. [facility] Comment on above: Performed By: #### C /TBC #### [address] [address] Hemogram w/ Autodiffon 09-17 Abs Baso Cnt 0.1 10*3/uL Normal 0.0-0.2 [facility] Comment on above: Performed By: #### B NP3, BMP3, MG3 #### [facility] [address] [place] [address] Abs Neutrophile Cnt 6.6 10*3/uL Normal 1.8-7.0 [facility] Comment on above: Performed By: #### B NP3, BMP3, MG3 #### [facility] [address] [place] [address] Basophils/100 WBC (Bld) 0.7 % Normal 0.0-2.0 S [facility] Comment on above: Performed By: #### B NP3, BMP3, MG3 #### [address] [place] [address] [place] [address] Eosinophils (Bld) [#/Vol] 0.1 10*3/uL Normal 0.0-0.5 [facility] Comment on above: Performed By: #### B NP3, BMP3, MG3 #### [place] [address] [place] [address] Eosinophils/100 WBC (Bld) 1.5 % Normal 1.0-6.0 [facility] Comment on above: Performed By: #### B NP3, BMP3, MG3 #### [place] [address] [place] [address] Granulocytes/100 WBC (Bld) 80.8 % High 40.0-80.0 [facility] Comment on above: Performed By: #### B NP3, BMP3, MG3 #### [place] [address] [place] [address] Lymphocytes (Bld) [#/Vol] 0.9 10*3/uL Low 1.0-4.3 [facility] Comment on above: Performed By: #### B NP3, BMP3, MG3 #### [address] [place] [place] [address] Lymphocytes/100 WBC (Bld) 10.5 % Low 20.0-40.0 [facility] Comment on above: Performed By: #### B NP3, BMP3, MG3 #### [place] [address] [place], [place] Monocytes (Bld) [#/Vol] 0.5 10*3/uL Normal 0.0-0.8 [facility] Comment on above: Performed By: #### B NP3, BMP3, MG3 #### [address] Monocytes/100 WBC (Bld) 6.5 % Normal 2.0-10.0 S [facility] Comment on above: Performed By: #### B NP3, BMP3, MG3 #### [address] Erythrocyte distribution width (RBC) [Ratio] 14.6 % High 11.5-14.5 [facility] Comment on above: Performed By: #### B NP3, BMP3, MG3 #### [address] Hematocrit (Bld) [Volume fraction] 33.2 % Low 40.0-52.0 [facility] Comment on above: Performed By: #### B NP3, BMP3, MG3 #### [address] Hemoglobin (Bld) [Mass/Vol] 10.8 g/dL Low 13.0-18.0 [facility] Comment on above: Performed By: #### B NP3, BMP3, MG3 #### [address] MCH (RBC) [Entitic mass] 33.0 pg Normal 26.0-34.0 [facility] Comment on above: Performed By: #### B NP3, BMP3, MG3 #### [address] MCHC 32.6 % Normal 32.0-36.0 [facility] Comment on above: Performed By: #### B NP3, BMP3, MG3 #### [place] [address] [place] MCV (RBC) [Entitic vol] 101.2 fL High 80.0-98.0 S [facility] Comment on above: Performed By: #### B NP3, BMP3, MG3 #### [place] [address] [place] Platelet mean volume (Bld) [Entitic vol] 8.7 fL Normal 7.4-10.4 [facility] Comment on above: Performed By: #### B NP3, BMP3, MG3 #### [address] Platelets (Bld) [#/Vol] 161 10*3/uL Normal 140-440 [facility] Comment on above: Performed By: #### B NP3, BMP3, MG3 #### [address] RBC (Bld) [#/Vol] 3.28 10*6/uL Low 4.40-5.90 [facility] Comment on above: Performed By: #### B NP3, BMP3, MG3 #### [address] WBC (Bld) [#/Vol] 8.0 10*3/uL Normal 3.6-10.7 [facility] Comment on above: Performed By: #### B NP3, BMP3, MG3 #### [address] Otheron 09-17-2020 Blood Culture, Routine No growth at 5 days. [facility] Work Phone: Test Performed by [facility], [address] [place] [address] [facility] Work Phone: XR CHEST PORTABLEon 09-18-19 Jax, [facility] Incoming Radiology Results From [facility] - 09/17/2020 8:00 AM EDT Patient Name: AMAURY BLANK Diagnostic Radiology ACCESSION EXAM DATE/TIME PROCEDURE ORDERING PROVIDER [id number] 09/17/2020 06:25 EDT CR Chest Portable [place]Z, [place] CPT code 41365 Reason For Exam (CR Chest Portable) Right pleural effusion Report CHEST CLINICAL INDICATION: Right pleural effusion TECHNIQUE: AP COMPARISON: 09/16/2020 FINDINGS: A right-sided chest tube is noted in stable position. Postsurgical changes are noted along the anterior mediastinum. The cardiac silhouette is enlarged. The mediastinum is unremarkable. There is no evidence of a pneumothorax. Patchy perihilar opacities are noted bilaterally with a trace right-sided pleural effusion. Degenerative changes are noted within the thoracic spine. IMPRESSION: Stable chest. Patchy bilateral perihilar opacities with a trace right-sided pleural effusion. Report Dictated on --- Final --- Dictated: 09/17/2020 7:58 am Dictating Physician: DO JANE RACHEL Signed Date and Time: 09/17/2020 7:59 am Signed by: DO JANE RACHEL Transcribed Date and Time: 09/17/2020 7:58 [facility] Work Phone: Patient Name: AMAURY DAVIS [facility]#: [id number] Diagnostic Radiology ACCESSION EXAM DATE/TIME PROCEDURE ORDERING PROVIDER [id number] 09/17/2020 06:25 EDT CR Chest Portable [place] LIZ, [place] CPT code 08848 Reason For Exam (CR Chest Portable) Right pleural effusion Report CHEST CLINICAL INDICATION: Right pleural effusion TECHNIQUE: AP COMPARISON: 09/16/2020 FINDINGS: A right-sided chest tube is noted in stable position. Postsurgical changes are noted along the anterior mediastinum. The cardiac silhouette is enlarged. The mediastinum is unremarkable. There is no evidence of a pneumothorax. Patchy perihilar opacities are noted bilaterally with a trace right-sided pleural effusion. Degenerative changes are noted within the thoracic spine. IMPRESSION: Stable chest. Patchy bilateral perihilar opacities with a trace right-sided pleural effusion. Report Dictated on --- Final --- Dictated: 09/17/2020 7:58 am Dictating Physician: DO JANE RACHEL Signed Date and Time: 09/17/2020 7:59 am Signed by: DO JANE RACHEL Transcribed Date and Time: 09/17/2020 7:58 [facility] Work Phone: Add On Lab Teston 09-16-2020 Sodium [Moles/Vol] Accepted [facility] Work Phone: Comment on above: Specimen available & acceptable for analysis. Test Performed by [facility], [address] [place] [address] [facility] Work Phone: Add on test from HISon 09-16 Add on test from HIS Accepted Normal [facility] Comment on above: Result Comment: Spec imen available & acceptable for analysis. Performed By: #### A DDON #### [address] [place] [place] [address] Basic Metabolic Panelon 08-29 Anion gap [Moles/Vol] 5 mmol/L Normal 3-13 [facility] Comment on above: Performed By: #### B NP3, BMP3, MG3 #### [address] [place] [place] [address] Calcium [Mass/Vol] 8.4 mg/dL Normal 8.4-10.4 [facility] Comment on above: Performed By: #### B NP3, BMP3, MG3 #### [address] [place] [place] [address] CO2 [Moles/Vol] 18 mmol/L Low 22-30 [facility] Comment on above: Performed By: #### B NP3, BMP3, MG3 #### [address] [place] [place] [address] Glucose [Mass/Vol] 132 mg/dL High 70-100 [facility] Comment on above: Performed By: #### B NP3, BMP3, MG3 #### [address] [place] [place] [address] Urea nitrogen [Mass/Vol] 63 mg/dL High 7-20 [facility] Comment on above: Performed By: #### B NP3, BMP3, MG3 #### [facility] [email or web address] [facility] [address], [place] Creatinine [Mass/Vol] 1.99 mg/dL High 0.52-1.25 [facility] Comment on above: Performed By: #### B NP3, BMP3, MG3 #### [facility] [address], [place] GFR/1.73 sq M.predicted among blacks MDRD (S/P/Bld) [Vol rate/Area] 35.9 mL/min/{1.73_m2} Abnormal >60 [facility] Comment on above: Performed By: #### B NP3, BMP3, MG3 #### [facility] [email or web address] [place] [address] [place], [place] GFR/1.73 sq M.predicted among non-blacks MDRD (S/P/Bld) [Vol rate/Area] 31.0 mL/min/{1.73_m2} Abnormal >60 [facility] Comment on above: Result Comment: KDIG O guidelines provide the following GFR categories: Stage GFR(ml/min/1.73 m2) Terms G1 >=90 Normal or high G2 60-89 Mildly decreased* G3a 45-59 Mildly to moderately decreased G3b 30-44 Moderately to severely decreased G4 15-29 Severely decreased G5 <15 Kidney failure *Relative to young adult level. In the absence of evidence of kidney damage, neither GFR category G1 nor G2 fulfill the criteria for CKD. The CKD-EPI equation is validated in individuals 18 years of age and older. Currently the best equation for estimating glomerular filtration rate (GFR) from serum creatinine in children is the Bedside Bocanegra equation. It is less accurate in patients with extremes of muscle mass, restriction of dietary protein, ingestion of creatine, extra-renal metabolism of creatinine, or treatment with medications that affect renal tubular creatinine secretion. Performed By: #### B NP3, BMP3, MG3 #### [facility] [email or web address] [facility] [address] [place], [place] Chloride [Moles/Vol] 106 mmol/L Normal 98-107 [facility] Comment on above: Performed By: #### B NP3, BMP3, MG3 #### [facility] [address] [place] [address] Potassium [Moles/Vol] 4.1 mmol/L Normal 3.5-5.1 [facility] Comment on above: Performed By: #### B NP3, BMP3, MG3 #### [facility] [address] [place] [address] Sodium [Moles/Vol] 130 mmol/L Low 135-145 [facility] Comment on above: Performed By: #### B NP3, BMP3, MG3 #### [facility] [address] [place] [address] Anion gap [Moles/Vol] 5 mmol/L 3 - 13 mmol/L [facility] Work Phone: Calcium [Mass/Vol] 8.4 mg/dL 8.4 - 10. 4 mg/dL [facility] Work Phone: Chloride [Moles/Vol] 106 mmol/L 98 - 10 7 mmol/L [facility] Work Phone: CO2 [Moles/Vol] 18 mmol/L Low 22 - 30 mmol/L [facility] Work Phone: Creatinine [Mass/Vol] 1.99 mg/dL High 0.52 - 1.25 mg/dL [facility] Work Phone: EGFR IF NonAfrican Cambodian 31.0 mL/min Abnormal >60 [facility] Work Phone: Comment on above: KDIGO guidelines pro vide the following GFR categories: Stage GFR(ml/min/1.73 m2) Terms G1 >=90 Normal or high G2 60-89 Mildly decreased* G3a 45-59 Mildly to moderately decreased G3b 30-44 Moderately to severely decreased G4 15-29 Severely decreased G5 <15 Kidney failure *Relative to young adult level. In the absence of evidence of kidney damage, neither GFR category G1 nor G2 fulfill the criteria for CKD. The CKD-EPI equation is validated in individuals 18 years of age and older. Currently the best equation for estimating glomerular filtration rate (GFR) from serum creatinine in children is the Bedside Bocanegra equation. It is less accurate in patients with extremes of muscle mass, restriction of dietary protein, ingestion of creatine, extra-renal metabolism of creatinine, or treatment with medications that affect renal tubular creatinine secretion. GFR/1.73 sq M predicted among blacks MDRD (S/P/Bld) [Vol rate/Area] 35.9 mL/min/{1.73_m2} Abnormal >60 [facility] Work Phone: Glucose [Mass/Vol] 132 mg/dL High 70 - 100 mg/dL [facility] Work Phone: Potassium [Moles/Vol] 4.1 mmol/L 3.5 - 5.1 mmol/L [facility] Work Phone: Sodium [Moles/Vol] 130 mmol/L Low 135 - 145 mmol/L [facility] Work Phone: Urea nitrogen [Mass/Vol] 63 mg/dL High 7 - 20 mg/dL [facility] Work Phone: CR Chest Portableon 09-17-19 CR Chest Portable [facility]: [id number]iology ACCESSION EXAM DATE/TIME PROCEDURE ORDERING PROVIDER [id number] 09/16/2020 06:32 EDT CR Chest Portable [place] LIZ SARAH CPT code 99049 Reason For Exam (CR Chest Portable) Right pleural effusion Report CHEST CLINICAL INDICATION: Right pleural effusion TECHNIQUE: AP COMPARISON: 09/15/2020 FINDINGS: Postsurgical changes are noted along the anterior mediastinum. A right-sided chest tube is noted in stable position. The cardiac silhouette is enlarged. The mediastinum is unremarkable. There is no evidence of a pneumothorax. There is blunting of the right costophrenic angle which may represent a trace effusion. There are superimposed patchy perihilar opacities bilaterally. The visualized osseous structures are intact. IMPRESSION: Stable bilateral perihilar infiltrates with suggestion of a trace right-sided pleural effusion. Report Dictated on Final Dictated: 09/16/2020 8:19 am Dictating Physician: DO JANE RACHEL Signed Date and Time: 09/16/2020 8:20 am Signed by: DO JANE RACHEL Transcribed Date and Time: 09/16/2020 8:19 Normal [facility] CULT/STAIN - AEROBIC AND RACHEL EROBICon 09-16-2020 CULT/STAIN - AEROBIC AND ANAEROBIC STAIN GRAM --> Status: F Many polymorphonuclear cells/lpf. Many gram positive cocci in pairs and chains. Moderate gram positive bacilli. Moderate gram negative bacilli. Many gram positive cocci in pairs and chains. Moderate gram positive bacilli. Moderate gram negative bacilli. 1 Organism Streptococcus intermedius (anginosus group) Many 3 Organism Anaerobic gram negative jessy not B. fragilis Group Moderate -- 1 Organism -- Antibiotic Result Intrp -- Ampicillin(OSCAR) <= 0.25 S Ceftriaxone(OSCAR) <= 0.12 S Clindamycin(OSCAR) <= 0.25 S Vancomycin(OSCAR) 0.5 S Penicillin-G(OSCAR) <= 0.06 S Normal [facility] Comment on above: Performed By: #### C /TBC #### [facility] [address] [address] CYTOLOGY, NON-GYNon 09-17-19 21 Cytology report Cyto stain.thin prep Doc (Cvx/Vag) SEE BELOW [employer] Work Phone: 1 [facility] [phone] PATHOLOGY AND [facility] LABORATORY MEDICINE [address] [place] [address] [phone] FINAL MEDICAL CYTOLOGY REPORT NAME: AMAURY BLANK : 1940 80 Y M CLARI NO.: [id number] LOCATION: [facility] 6 H TOWER INPT PROCEDURE 09/13/2020 6124 01 DATE: PHYSICIAN: KYLAH LIZ MD RECEIVED DATE: 09/14/2020 ATTENDING: GILBERT HENRY M.D. REPORT DATE: 09/16/2020 COPIES TO: BERT SUÁREZ MD; ORLANDO GOETZ M.D. CLINICAL DATA: DIAGNOSIS NO MALIGNANT CELLS IDENTIFIED. CELLULAR FINDINGS CONSISTENT WITH INFLAMMATORY PROCESS. Comment: Please correlate with any culture results. Comment: Specimen volumes < 75 mL increase the risk of false-negative, indeterminate, or nondiagnostic results. The low volume submitted in this case may preclude adequate evaluation. Proceed with caution and consider repeat sampling of any reaccumulated fluid as clinically warranted. Reference: Ayanna CHANDRA, et al. A minimum fluid volume of 75 mL is needed to ensure adequacy in a pleural effusion. Cancer Cytopath. 2014 Feb;122(9):657-65. SPECIMEN: PLEURAL FLUID, RIGHT , CHEST DRAIN PROCEDURE(S): FLUID COLLECTION GROSS DESCRIPTION: 5 ml, thick, Red fluid, w/o cytolyt. Materials Prepared & Examined: Cell Blocks . . . . . . . . . . . . 1 Monolayers . . . . . . . . . . . . 1 DD0 Screened by SUE ORTIZ M.D. The following statement applies to all immunohistochemistry, in situ hybridization, molecular studies, and immunofluorescence testing. The use of one or more reagents in the above tests is regulated as an analyte specific reagent (ASR). These tests were developed and their performance characteristics determined by the clinical laboratories of [facility]. They have not been cleared by the US Food and Drug Administration (FDA). The FDA has determined that such clearance or approval is not necessary. All the above immunostains were performed on paraffin embedded tissue. Appropriate positive and negative controls (where applicable) were run in parallel with the patient's specimen; these controls showed expected staining pattern, with acceptable intensity of staining. Immunohistochemical assays have not been validated on decalcified tissues. Results should be interpreted with caution given the raised possibility of false negativity on decalcified specimens. Case reviewed at [address] [id number]. DEPARTMENT OF PATHOLOGY AND LABORATORY MEDICINE [place], [place] [address] [facility] Work Phone: Culture, Anaerobic and Aerob icon 09-16-2020 Aerobic Culture Many [facility] Work Phone: Aerobic Culture Streptococcus intermedius Abnormal [facility] Work Phone: Anaerobic Culture Negative Abnormal [facility] Work Phone: Anaerobic Culture Moderate [facility] Work Phone: INR Coag (Bld) [Relative time] Many polymorphonuclear cells/lpf. Many gram positive cocci in pairs and chains. Moderate gram positive bacilli. Moderate gram negative bacilli. 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 : 1940 Requested By: MARIA ELENA KAMINSKI Order Number: [id number] Reading MD: Adamaris Johns Measurements Intervals [place] Rate: 77 P: [place]: QRS: -25 QRSD: 122 T: 82 QT: 414 QTc: 469 Interpretive Statements Atrial flutter with predominant 3:1 AV block Nonspecific intraventricular conduction delay Anteroseptal infarct, age indeterminate Electronically Signed On 09-16-2020 10:56:23 EDT by Adamaris Johns [employer] [employer] Work Phone: [facility] Test Date: 2020-09-16 Pat Name: Amaury Blank Department: 1AH6 Room: 6124 Gender: M Cow Buyer: ANNALISE : 1940 Requested By: MARIA ELENA KAMINSKI Order Number: [id number] Reading MD: Adamaris Johns Measurements Intervals [place] Rate: 77 P: [place]: QRS: -25 QRSD: 122 T: 82 QT: 414 QTc: 469 Interpretive Statements Atrial flutter with predominant 3:1 AV block Nonspecific intraventricular conduction delay Anteroseptal infarct, age indeterminate Electronically Signed On 09-16-2020 10:56:23 EDT by Adamaris Johns [employer] Work Phone: HISTOPLASMA ANTIGEN, URINEon 09-16-2020 HISTOPLASMA AG URINE DETECTION Not Detected ng/mL [employer] Work Phone: Interpretation Not Detected Not Detected NA [employer] Phone: Comment on above: INTERPRETIVE DATA: H istoplasma Galactomannan Antigen Quantitative by EIA, Urine Less than 0.4 ng/ml = Not Detected 0.4-3.1 ng/mL = Detected (below the limit of quantification) 3.2-20.0 ng/mL = Detected Greater than 20.0 ng/mL = Detected (above the limit of quantification) The quantitative range of this assay is 3.2-20.0 ng/mL. Antigen concentrations between 0.4-3.1 or >20.0 ng/mL fall outside the linear range of the assay and cannot be accurately quantified. This EIA test should be used in conjunction with other diagnostic procedures, including microbiological culture, histological examination of biopsy samples, and/or radiographic evidence, to aid in the diagnosis of histoplasmosis. This test was developed and its performance characteristics determined by [facility]. It has not been cleared or approved by the US Food and Drug Administration. This test was performed in a CLIA certified laboratory and is intended for clinical purposes. Performed By: [facility] [address] [place] [address] [place] [address] Certification Engineer: Alice Fraga MD Histoplasma Ag, Urineon 08-29 Histoplasma Ag,Urine Not detected Normal [facility] Comment on above: Performed By: #### Terese BENJAMIN3 BMP3, MG3 #### [address] Interpretation Not detected Normal Not Detected [facility] Comment on above: Result Comment: INTE RPRETIVE DATA: Histoplasma Galactomannan Antigen Quantitative by EIA, Urine Less than 0.4 ng/ml = Not Detected 0.4-3.1 ng/mL = Detected (below the limit of quantification) 3.2-20.0 ng/mL = Detected Greater than 20.0 ng/mL = Detected (above the limit of quantification) The quantitative range of this assay is 3.2-20.0 ng/mL. Antigen concentrations between 0.4-3.1 or >20.0 ng/mL fall outside the linear range of the assay and cannot be accurately quantified. This EIA test should be used in conjunction with other diagnostic procedures, including microbiological culture, histological examination of biopsy samples, and/or radiographic evidence, to aid in the diagnosis of histoplasmosis. This test was developed and its performance characteristics determined by [facility]. It has not been cleared or approved by the US Food and Drug Administration. This test was performed in a CLIA certified laboratory and is intended for clinical purposes. Performed By: [facility] [address] [place] [address] Certification Engineer: Alice Fraga MD Performed By: #### Terese DAVIDSON, ESTEFANY3, MG3 #### [address] Magnesiumon 09-16-2020 Magnesium [Mass/Vol] 1.7 mg/dL Normal 1.6-2.3 [facility] Comment on above: Performed By: #### Terese NP3, BMP3, MG3 #### [address] Magnesium [Mass/Vol] 1.7 mg/dL 1.6 - 2 .3 mg/dL [facility] Work Phone: Test Performed by [facility], [address] [place] [address] [facility] Work Phone: Otheron 09-16-2020 Interpretation and review of laboratory results Abnormal [facility] Work Phone: Test Performed by [facility], [address] [place] [address] [facility] Work Phone: Protein, Totalon 09-16-2020 Protein [Mass/Vol] 4.5 g/dL Low 6.3 - 8.2 g/dL [facility] Work Phone: Total Proteinon 9 Protein [Mass/Vol] 4.5 g/dL Low 6.3-8.2 [facility] Comment on above: Performed By: #### B NP3, BMP3, MG3 #### [address] [address] XR CHEST PORTABLEon 09-17-19 Patient Name: AMAURY HOLMAN Diagnostic Radiology ACCESSION EXAM DATE/TIME PROCEDURE ORDERING PROVIDER [id number] 09/16/2020 06:32 EDT CR Chest Portable [place] LIZ SARAH CPT code 51426 Reason For Exam (CR Chest Portable) Right pleural effusion Report CHEST CLINICAL INDICATION: Right pleural effusion TECHNIQUE: AP COMPARISON: 09/15/2020 FINDINGS: Postsurgical changes are noted along the anterior mediastinum. A right-sided chest tube is noted in stable position. The cardiac silhouette is enlarged. The mediastinum is unremarkable. There is no evidence of a pneumothorax. There is blunting of the right costophrenic angle which may represent a trace effusion. There are superimposed patchy perihilar opacities bilaterally. The visualized osseous structures are intact. IMPRESSION: Stable bilateral perihilar infiltrates with suggestion of a trace right-sided pleural effusion. Report Dictated on --- Final --- Dictated: 09/16/2020 8:19 am Dictating Physician: DO JANE RACHEL Signed Date and Time: 09/16/2020 8:20 am Signed by: DO JANE RACHEL Transcribed Date and Time: 09/16/2020 8:19 [facility] Work Phone: Jax, [facility] Incoming Radiology Results From [employer] - 09/16/2020 8:21 AM EDT Patient Name: AMAURY BLANK Diagnostic Radiology ACCESSION EXAM DATE/TIME PROCEDURE ORDERING PROVIDER [id number] 09/16/2020 06:32 EDT CR Chest Portable [place] LIZ SARAH CPT code 33697 Reason For Exam (CR Chest Portable) Right pleural effusion Report CHEST CLINICAL INDICATION: Right pleural effusion TECHNIQUE: AP COMPARISON: 09/15/2020 FINDINGS: Postsurgical changes are noted along the anterior mediastinum. A right-sided chest tube is noted in stable position. The cardiac silhouette is enlarged. The mediastinum is unremarkable. There is no evidence of a pneumothorax. There is blunting of the right costophrenic angle which may represent a trace effusion. There are superimposed patchy perihilar opacities bilaterally. The visualized osseous structures are intact. IMPRESSION: Stable bilateral perihilar infiltrates with suggestion of a trace right-sided pleural effusion. Report Dictated on --- Final --- Dictated: 09/16/2020 8:19 am Dictating Physician: DO JANE RACHEL Signed Date and Time: 09/16/2020 8:20 am Signed by: DO JANE RACHEL Transcribed Date and Time: 09/16/2020 8:19 [facility] Work Phone: BODY FLUID CELL COUNT WITH D IFFERENTIALon 09-15-2020 Nucl Cell, Fluid 73805 {cells}/uL [facility] [place] Work Phone: RED BLOOD CELLS, BODY FLUID 688103 {RBC}/uL [facility] Work Phone: Sodium [Moles/Vol] chest tube [facility] Work Phone: Test Performed by [facility], [address] [place] [address] [facility] Work Phone: Basic Metabolic Panelon 08-28 Anion gap [Moles/Vol] 9 mmol/L Normal 3-13 [facility] Comment on above: Performed By: #### B NP3, BMP3, MG3 #### [facility] [address] [place], [place] Calcium [Mass/Vol] 8.3 mg/dL Low 8.4-10.4 [facility] Comment on above: Performed By: #### B NP3, BMP3, MG3 #### [facility] [address] [place], [place] CO2 [Moles/Vol] 19 mmol/L Low 22-30 [facility] Comment on above: Performed By: #### B NP3, BMP3, MG3 #### [facility] [address] [place], [place] Creatinine [Mass/Vol] 2.27 mg/dL High 0.52-1.25 [facility] Comment on above: Performed By: #### B NP3, BMP3, MG3 #### [facility] [address] [place], [place] GFR/1.73 sq M.predicted among blacks MDRD (S/P/Bld) [Vol rate/Area] 30.6 mL/min/{1.73_m2} Abnormal >60 [facility] Comment on above: Performed By: #### B NP3, BMP3, MG3 #### [facility] [address] [place], [place] GFR/1.73 sq M.predicted among non-blacks MDRD (S/P/Bld) [Vol rate/Area] 26.4 mL/min/{1.73_m2} Abnormal >60 [facility] Comment on above: Result Comment: KDIG O guidelines provide the following GFR categories: Stage GFR(ml/min/1.73 m2) Terms G1 >=90 Normal or high G2 60-89 Mildly decreased* G3a 45-59 Mildly to moderately decreased G3b 30-44 Moderately to severely decreased G4 15-29 Severely decreased G5 <15 Kidney failure *Relative to young adult level. In the absence of evidence of kidney damage, neither GFR category G1 nor G2 fulfill the criteria for CKD. The CKD-EPI equation is validated in individuals 18 years of age and older. Currently the best equation for estimating glomerular filtration rate (GFR) from serum creatinine in children is the Bedside Bocanegra equation. It is less accurate in patients with extremes of muscle mass, restriction of dietary protein, ingestion of creatine, extra-renal metabolism of creatinine, or treatment with medications that affect renal tubular creatinine secretion. Performed By: #### B NP3, BMP3, MG3 #### [facility] [address] [place] [address] Glucose [Mass/Vol] 105 mg/dL High 70-100 [facility] Comment on above: Performed By: #### B NP3, BMP3, MG3 #### [facility] [address] [place] [address] Urea nitrogen [Mass/Vol] 68 mg/dL High 7-20 [facility] Comment on above: Performed By: #### B NP3, BMP3, MG3 #### [facility] [address] [place] [address] Chloride [Moles/Vol] 106 mmol/L Normal 98-107 [facility] Comment on above: Performed By: #### B NP3, BMP3, MG3 #### [facility] [address] [place] [address] Potassium [Moles/Vol] 4.0 mmol/L Normal 3.5-5.1 [facility] Comment on above: Performed By: #### B NP3, BMP3, MG3 #### [facility] [address] [place] [address] Sodium [Moles/Vol] 134 mmol/L Low 135-145 [facility] Comment on above: Performed By: #### B NP3, BMP3, MG3 #### [facility] [address] [place] [address] Anion gap [Moles/Vol] 9 mmol/L 3 - 13 mmol/L [facility] Work Phone: Calcium [Mass/Vol] 8.3 mg/dL Low 8.4 - 10. 4 mg/dL [facility] Work Phone: Chloride [Moles/Vol] 106 mmol/L 98 - 10 7 mmol/L [facility] Work Phone: CO2 [Moles/Vol] 19 mmol/L Low 22 - 30 mmol/L [facility] Work Phone: Creatinine [Mass/Vol] 2.27 mg/dL High 0.52 - 1.25 mg/dL [facility] Work Phone: EGFR IF NonAfrican Cambodian 26.4 mL/min Abnormal >60 [facility] Work Phone: Comment on above: KDIGO guidelines pro vide the following GFR categories: Stage GFR(ml/min/1.73 m2) Terms G1 >=90 Normal or high G2 60-89 Mildly decreased* G3a 45-59 Mildly to moderately decreased G3b 30-44 Moderately to severely decreased G4 15-29 Severely decreased G5 <15 Kidney failure *Relative to young adult level. In the absence of evidence of kidney damage, neither GFR category G1 nor G2 fulfill the criteria for CKD. The CKD-EPI equation is validated in individuals 18 years of age and older. Currently the best equation for estimating glomerular filtration rate (GFR) from serum creatinine in children is the Bedside Bocanegra equation. It is less accurate in patients with extremes of muscle mass, restriction of dietary protein, ingestion of creatine, extra-renal metabolism of creatinine, or treatment with medications that affect renal tubular creatinine secretion. GFR/1.73 sq M predicted among blacks MDRD (S/P/Bld) [Vol rate/Area] 30.6 mL/min/{1.73_m2} Abnormal >60 [facility] Work Phone: Glucose [Mass/Vol] 105 mg/dL High 70 - 100 mg/dL [facility] Work Phone: Interpretation and review of laboratory results Abnormal [facility] Work Phone: Potassium [Moles/Vol] 4.0 mmol/L 3.5 - 5.1 mmol/L [facility] Work Phone: Sodium [Moles/Vol] 134 mmol/L Low 135 - 145 mmol/L [facility] Work Phone: Urea nitrogen [Mass/Vol] 68 mg/dL High 7 - 20 mg/dL [facility] Work Phone: Test Performed by [address] [place] [id number] [place] [address] Work Phone: CR Chest Portableon 09-16-19 CR Chest Portable Patient Name: AMAURY DAVIS Diagnostic Radiology ACCESSION EXAM DATE/TIME PROCEDURE ORDERING PROVIDER [id number] 09/15/2020 06:44 EDT CR Chest Portable [place] LIZ SARAH CPT code 00458 Reason For Exam (CR Chest Portable) Right pleural effusion Report PORTABLE CHEST (Frontal View) History: Respiratory abnormality Comparison: 09/14/2020 Findings: Frontal portable chest view shows residual right basilar atelectasis/infiltrate with pleural effusion, not significantly changed from last exam. There is associated small right basilar pneumothorax with right chest tube noted. There is redemonstration of left midlung opacity/infiltrates and small right suprahilar infiltrate, not significantly changed. The heart is mildly enlarged with median sternotomy noted. There is no mediastinal widening or other significant interval change. Report Dictated on Final Dictated: 09/15/2020 7:13 am Dictating Physician: MD RENEE AHMAD Signed Date and Time: 09/15/2020 7:16 am Signed by: MD RENEE AHMAD Transcribed Date and Time: 09/15/2020 7:13 Normal [facility] Cell Count,Body Fluidon 08-28 Nucleated Cells 88183 {cells}/uL Normal [facility] Comment on above: Performed By: #### B NP3, BMP3, MG3 #### [facility] [address], [place] RBC Count Body Fld 710484 {RBC}/uL Normal [facility] Comment on above: Performed By: #### B NP3, BMP3, MG3 #### [facility] [address] [place], [place] Fluid Type chest tube Normal [facility] Comment on above: Performed By: #### B NP3, BMP3, MG3 #### [facility] [address] [place] [address] Differential, Body Fluidon 0 09-15-2020 Eosinophils/100 WBC (Bld) 1 % [facility] Work Phone: Lymphocytes/100 WBC (Bld) 1 % [facility] Work Phone: Macrophage count 1 % [facility] Work Phone: Monocytes/100 WBC (Bld) 1 % [facility] Work Phone: Neutrophils/100 WBC (Bld) 96 % [facility] Work Phone: Sodium [Moles/Vol] 100 mmol/L [facility] Work Phone: Test Performed by [facility], [facility] [place] [address] [facility] Work Phone: Differential,Body Fluidson 0 09-15-2020 Eosinophils/100 WBC (Bld) 1 % Normal [facility] Comment on above: Performed By: #### B NP3, BMP3, MG3 #### [facility] [place] [address] Lymphocytes/100 WBC (Bld) 1 % Normal [facility] Comment on above: Performed By: #### B NP3, BMP3, MG3 #### [place] [address] [place] [address] Macrophages 1 % Normal [facility] Comment on above: Performed By: #### B NP3, BMP3, MG3 #### [place] [address] [place] [address] Monocytes/100 WBC (Bld) 1 % Normal [facility] Comment on above: Performed By: #### B NP3, BMP3, MG3 #### [facility] [address] [place] [phone] Neutrophils/100 WBC (Bld) 96 % Normal [facility] Comment on above: Performed By: #### B NP3, BMP3, MG3 #### [facility] [place] [address] Cells Counted for Diff 100 Normal [facility] Comment on above: Performed By: #### B NP3, BMP3, MG3 #### [facility] [email or web address] [facility] [address] [place] [phone] Glucose, Body Fluidon 2020 Glucose, Body Fluid < 20 Normal No Range [facility] [email or web address] [facility] Comment on above: Performed By: #### B NP3, BMP3, MG3 #### [facility] [email or web address] [facility] [address] [place] [phone] Glucose, Body Fluid <20 No Range mg/dL [employer] Work Phone: Test Performed by [facility], [address] [place] [phone] [place], [place] [address]A Work Phone: Hemoglobin AND Hematocriton 09-15-2020 Hematocrit (Bld) [Volume fraction] 32.9 % Low 40.0-52.0 [facility] [employer] [facility] Comment on above: Performed By: #### B MP3, HEMDF #### [facility] [employer] [address] [place] [phone] Hemoglobin (Bld) [Mass/Vol] 10.7 g/dL Low 13.0-18.0 [facility] [facility] Comment on above: Performed By: #### B MP3, HEMDF #### [facility] [email or web address] [address] [address] Hemoglobin and Hematocrit, B loodon 09-15-2020 Hematocrit (Bld) [Volume fraction] 32.9 % Low 40.0 - 52.0 % [facility] Work Phone: Hemoglobin (Bld) [Mass/Vol] 10.7 g/dL Low 13.0 - 18.0 g/dL [facility] Work Phone: Interpretation and review of laboratory results Abnormal [facility] Work Phone: Test Performed by [facility], [address] [place] [phone] [place], [place] [address] Work Phone: LDH, Body Fluidon 09-15-2020 LDH, Body Fluid 2229 U/L Normal No Range [facility] Comment on above: Performed By: #### B NP3, BMP3, MG3 #### [facility] [email or web address] [facility] [place] [address] Fluid Type Acites Normal [facility] Comment on above: Performed By: #### B NP3, BMP3, MG3 #### [address] [address] Lactate Dehydrogenase, Body Fluidon 09-15-2020 LD, Fluid 2229 U/L No Range [facility] Work Phone: Sodium [Moles/Vol] Acites [facility] Work Phone: Test Performed by [facility], [address] [place] [address] [facility] Work Phone: XR CHEST PORTABLEon 09-16-19 Jax, [facility] Incoming Radiology Results From [facility] - 09/15/2020 7:17 AM EDT Patient Name: AMAURY BLANK Diagnostic Radiology ACCESSION EXAM DATE/TIME PROCEDURE ORDERING PROVIDER [id number] 09/15/2020 06:44 EDT CR Chest Portable [place] LIZ KYLAH CPT code 77075 Reason For Exam (CR Chest Portable) Right pleural effusion Report PORTABLE CHEST (Frontal View) History: Respiratory abnormality Comparison: 09/14/2020 Findings: Frontal portable chest view shows residual right basilar atelectasis/infiltrate with pleural effusion, not significantly changed from last exam. There is associated small right basilar pneumothorax with right chest tube noted. There is redemonstration of left midlung opacity/infiltrates and small right suprahilar infiltrate, not significantly changed. The heart is mildly enlarged with median sternotomy noted. There is no mediastinal widening or other significant interval change. Report Dictated on --- Final --- Dictated: 09/15/2020 7:13 am Dictating Physician: MD RENEE AHMAD Signed Date and Time: 09/15/2020 7:16 am Signed by: MD RENEE AHMAD Transcribed Date and Time: 09/15/2020 7:13 [facility] Work Phone: Patient Name: AMAURY DAVIS Diagnostic Radiology ACCESSION EXAM DATE/TIME PROCEDURE ORDERING PROVIDER [id number] 09/15/2020 06:44 EDT CR Chest Portable [place] LIZKYLAH CPT code 89043 Reason For Exam (CR Chest Portable) Right pleural effusion Report PORTABLE CHEST (Frontal View) History: Respiratory abnormality Comparison: 09/14/2020 Findings: Frontal portable chest view shows residual right basilar atelectasis/infiltrate with pleural effusion, not significantly changed from last exam. There is associated small right basilar pneumothorax with right chest tube noted. There is redemonstration of left midlung opacity/infiltrates and small right suprahilar infiltrate, not significantly changed. The heart is mildly enlarged with median sternotomy noted. There is no mediastinal widening or other significant interval change. Report Dictated on --- Final --- Dictated: 09/15/2020 7:13 am Dictating Physician: MD RENEE AHMAD Signed Date and Time: 09/15/2020 7:16 am Signed by: MD RENEE AHMAD Transcribed Date and Time: 09/15/2020 7:13 [facility] Work Phone: Basic Metabolic Panelon 08-28 Calcium [Mass/Vol] 8.5 mg/dL Normal 8.4-10.4 [facility] Comment on above: Performed By: #### C /TBC #### [address] Anion gap [Moles/Vol] 8 mmol/L Normal 3-13 [facility] Comment on above: Performed By: #### C /TBC #### [address] CO2 [Moles/Vol] 20 mmol/L Low 22-30 [facility] Comment on above: Performed By: #### C /TBC #### [address] Creatinine [Mass/Vol] 2.24 mg/dL High 0.52-1.25 [facility] Comment on above: Performed By: #### C /TBC #### [address] [place] [address] GFR/1.73 sq M.predicted among blacks MDRD (S/P/Bld) [Vol rate/Area] 31.1 mL/min/{1.73_m2} Abnormal >60 [facility] Comment on above: Performed By: #### C /TBC #### [facility] [address] [place] [address] GFR/1.73 sq M.predicted among non-blacks MDRD (S/P/Bld) [Vol rate/Area] 26.9 mL/min/{1.73_m2} Abnormal >60 [facility] Comment on above: Result Comment: KDIG O guidelines provide the following GFR categories: Stage GFR(ml/min/1.73 m2) Terms G1 >=90 Normal or high G2 60-89 Mildly decreased* G3a 45-59 Mildly to moderately decreased G3b 30-44 Moderately to severely decreased G4 15-29 Severely decreased G5 <15 Kidney failure *Relative to young adult level. In the absence of evidence of kidney damage, neither GFR category G1 nor G2 fulfill the criteria for CKD. The CKD-EPI equation is validated in individuals 18 years of age and older. Currently the best equation for estimating glomerular filtration rate (GFR) from serum creatinine in children is the Bedside Bocanegra equation. It is less accurate in patients with extremes of muscle mass, restriction of dietary protein, ingestion of creatine, extra-renal metabolism of creatinine, or treatment with medications that affect renal tubular creatinine secretion. Performed By: #### C /TBC #### [facility] [address] [place] [address] Glucose [Mass/Vol] 129 mg/dL High 70-100 [facility] Comment on above: Performed By: #### C /TBC #### [facility] [address] [place] [address] Urea nitrogen [Mass/Vol] 70 mg/dL High 7-20 [facility] Comment on above: Performed By: #### C /TBC #### [facility] [address] [place] [address] Chloride [Moles/Vol] 110 mmol/L High 98-107 [facility] Comment on above: Performed By: #### C /TBC #### [facility] [address] [place] [address] Potassium [Moles/Vol] 3.7 mmol/L Normal 3.5-5.1 [facility] Comment on above: Performed By: #### C /TBC #### [facility] [address] [place] [address] Sodium [Moles/Vol] 138 mmol/L Normal 135-145 [facility] Comment on above: Performed By: #### C /TBC #### [facility] [address] [place] [address] Anion gap [Moles/Vol] 8 mmol/L 3 - 13 mmol/L [facility] Work Phone: Calcium [Mass/Vol] 8.5 mg/dL 8.4 - 10. 4 mg/dL [facility] Work Phone: Chloride [Moles/Vol] 110 mmol/L High 98 - 10 7 mmol/L [facility] Work Phone: CO2 [Moles/Vol] 20 mmol/L Low 22 - 30 mmol/L [facility] Work Phone: Creatinine [Mass/Vol] 2.24 mg/dL High 0.52 - 1.25 mg/dL [facility] Work Phone: EGFR IF NonAfrican Cambodian 26.9 mL/min Abnormal >60 [facility] Work Phone: Comment on above: KDIGO guidelines pro vide the following GFR categories: Stage GFR(ml/min/1.73 m2) Terms G1 >=90 Normal or high G2 60-89 Mildly decreased* G3a 45-59 Mildly to moderately decreased G3b 30-44 Moderately to severely decreased G4 15-29 Severely decreased G5 <15 Kidney failure *Relative to young adult level. In the absence of evidence of kidney damage, neither GFR category G1 nor G2 fulfill the criteria for CKD. The CKD-EPI equation is validated in individuals 18 years of age and older. Currently the best equation for estimating glomerular filtration rate (GFR) from serum creatinine in children is the Bedside Bocanegra equation. It is less accurate in patients with extremes of muscle mass, restriction of dietary protein, ingestion of creatine, extra-renal metabolism of creatinine, or treatment with medications that affect renal tubular creatinine secretion. GFR/1.73 sq M predicted among blacks MDRD (S/P/Bld) [Vol rate/Area] 31.1 mL/min/{1.73_m2} Abnormal >60 [facility] Work Phone: Glucose [Mass/Vol] 129 mg/dL High 70 - 100 mg/dL [facility] Work Phone: Interpretation and review of laboratory results Abnormal [facility] Work Phone: Potassium [Moles/Vol] 3.7 mmol/L 3.5 - 5.1 mmol/L [facility] Work Phone: Sodium [Moles/Vol] 138 mmol/L 135 - 145 mmol/L [facility] Work Phone: Urea nitrogen [Mass/Vol] 70 mg/dL High 7 - 20 mg/dL [facility] Work Phone: Test Performed by [address] [address] [facility] Work Phone: CR Chest Portableon 09-15-19 21 CR Chest Portable Patient Name: AMAURY DAVIS [facility]#: [id number] Diagnostic Radiology ACCESSION EXAM DATE/TIME PROCEDURE ORDERING PROVIDER [id number] 09/14/2020 06:53 EDT CR Chest Portable [place] LIZ SARAH CPT code 81882 Reason For Exam (CR Chest Portable) Right pleural effusion Report EXAM TYPE: RADIOLOGIC EXAMINATION, CHEST, SINGLE VIEW FRONTAL (CXR SINGLE VIEW) EXAM DATE AND TIME: 09/14/2020 6:53 AM EDT INDICATION: Effusion COMPARISON: 09/13/2020 TECHNIQUE: A single frontal view of the thorax was obtained and reviewed. Special views: None. IMPRESSION: 1. Lines/Tubes/Devices/Hardwar e: Sternotomy wires, monitoring leads, stable projection of right chest tube.. Please confirm position/function of devices/catheters clinically. 2. Lungs: Persistent volume loss right hemithorax; continued mildly improved infiltrate density right lower lobe. Continued mild infiltrate density left midlung. Skinfold projects over right upper chest. 3. Pleura: Stable small to moderate right effusion. No significant pneumothorax. 4. Heart and mediastinum: Limited due to technique. 5. Upper abdomen: No acute process seen. 6. Thorax:No acute bony process Report Dictated on Final Dictated: 09/14/2020 7:08 am Dictating Physician: MD CESAR JOHN Signed Date and Time: 09/14/2020 7:11 am Signed by: MD CESAR JOHN Transcribed Date and Time: 09/14/2020 7:08 [facility] XR CHEST PORTABLEon 09-15-19 Patient Name: AMAURY DAVIS Diagnostic Radiology ACCESSION EXAM DATE/TIME PROCEDURE ORDERING PROVIDER [id number] 09/14/2020 06:53 EDT CR Chest Portable [place] [facility]Z SARAH CPT code 13780 Reason For Exam (CR Chest Portable) Right pleural effusion Report EXAM TYPE: RADIOLOGIC EXAMINATION, CHEST, SINGLE VIEW FRONTAL (CXR SINGLE VIEW) EXAM DATE AND TIME: 09/14/2020 6:53 AM EDT INDICATION: Effusion COMPARISON: 09/13/2020 TECHNIQUE: A single frontal view of the thorax was obtained and reviewed. Special views: None. IMPRESSION: 1. Lines/Tubes/Devices/Hardwar e: Sternotomy wires, monitoring leads, stable projection of right chest tube.. Please confirm position/function of devices/catheters clinically. 2. Lungs: Persistent volume loss right hemithorax; continued mildly improved infiltrate density right lower lobe. Continued mild infiltrate density left midlung. Skinfold projects over right upper chest. 3. Pleura: Stable small to moderate right effusion. No significant pneumothorax. 4. Heart and mediastinum: Limited due to technique. 5. Upper abdomen: No acute process seen. 6. Thorax:No acute bony process Report Dictated on --- Final --- Dictated: 09/14/2020 7:08 am Dictating Physician: MD CESAR JOHN Signed Date and Time: 09/14/2020 7:11 am Signed by: MD CESAR JOHN Transcribed Date and Time: 09/14/2020 7:08 [facility] Work Phone: [facility], [facility] Incoming Radiology Results From [facility] - 09/14/2020 7:13 AM EDT [facility]: [id number] Radiology ACCESSION EXAM DATE/TIME PROCEDURE ORDERING PROVIDER [id number] 09/14/2020 06:53 EDT CR Chest Portable [place] LIZ SARAH CPT code 91970 Reason For Exam (CR Chest Portable) Right pleural effusion Report EXAM TYPE: RADIOLOGIC EXAMINATION, CHEST, SINGLE VIEW FRONTAL (CXR SINGLE VIEW) EXAM DATE AND TIME: 09/14/2020 6:53 AM EDT INDICATION: Effusion COMPARISON: 09/13/2020 TECHNIQUE: A single frontal view of the thorax was obtained and reviewed. Special views: None. IMPRESSION: 1. Lines/Tubes/Devices/Hardwar e: Sternotomy wires, monitoring leads, stable projection of right chest tube.. Please confirm position/function of devices/catheters clinically. 2. Lungs: Persistent volume loss right hemithorax; continued mildly improved infiltrate density right lower lobe. Continued mild infiltrate density left midlung. Skinfold projects over right upper chest. 3. Pleura: Stable small to moderate right effusion. No significant pneumothorax. 4. Heart and mediastinum: Limited due to technique. 5. Upper abdomen: No acute process seen. 6. Thorax:No acute bony process Report Dictated on --- Final --- Dictated: 09/14/2020 7:08 am Dictating Physician: MD CESAR JOHN Signed Date and Time: 09/14/2020 7:11 am Signed by: MD CESAR JOHN Transcribed Date and Time: 09/14/2020 7:08 [facility] Work Phone: Basic Metabolic Panelon 08-28 Anion gap [Moles/Vol] 7 mmol/L Normal 3-13 [facility] Comment on above: Performed By: #### B NP3, BMP3, MG3 #### [address] [address] Calcium [Mass/Vol] 8.3 mg/dL Low 8.4-10.4 [facility] Comment on above: Performed By: #### B NP3, BMP3, MG3 #### [facility] [address] [place], [place] CO2 [Moles/Vol] 21 mmol/L Low 22-30 [facility] Comment on above: Performed By: #### B NP3, BMP3, MG3 #### [facility] [address] [place], [place] Glucose [Mass/Vol] 139 mg/dL High 70-100 [facility] Comment on above: Performed By: #### B NP3, BMP3, MG3 #### [address] [place], [place] Urea nitrogen [Mass/Vol] 79 mg/dL High 7-20 [facility] Comment on above: Performed By: #### B NP3, BMP3, MG3 #### [address] [place] [place], [place] Creatinine [Mass/Vol] 2.35 mg/dL High 0.52-1.25 [facility] Comment on above: Performed By: #### B NP3, BMP3, MG3 #### [address] [place] [place] GFR/1.73 sq M.predicted among blacks MDRD (S/P/Bld) [Vol rate/Area] 29.4 mL/min/{1.73_m2} Abnormal >60 [facility] Comment on above: Performed By: #### B NP3, BMP3, MG3 #### [facility] [address] [place], [place] GFR/1.73 sq M.predicted among non-blacks MDRD (S/P/Bld) [Vol rate/Area] 25.3 mL/min/{1.73_m2} Abnormal >60 [facility] Comment on above: Result Comment: KDIG O guidelines provide the following GFR categories: Stage GFR(ml/min/1.73 m2) Terms G1 >=90 Normal or high G2 60-89 Mildly decreased* G3a 45-59 Mildly to moderately decreased G3b 30-44 Moderately to severely decreased G4 15-29 Severely decreased G5 <15 Kidney failure *Relative to young adult level. In the absence of evidence of kidney damage, neither GFR category G1 nor G2 fulfill the criteria for CKD. The CKD-EPI equation is validated in individuals 18 years of age and older. Currently the best equation for estimating glomerular filtration rate (GFR) from serum creatinine in children is the Bedside Bocanegra equation. It is less accurate in patients with extremes of muscle mass, restriction of dietary protein, ingestion of creatine, extra-renal metabolism of creatinine, or treatment with medications that affect renal tubular creatinine secretion. Performed By: #### B NP3, BMP3, MG3 #### [facility] [address] [place] [address] Potassium [Moles/Vol] 3.2 mmol/L Low 3.5-5.1 [facility] Comment on above: Performed By: #### B NP3, BMP3, MG3 #### [facility] [address] [place], [place] Sodium [Moles/Vol] 139 mmol/L Normal 135-145 [facility] Comment on above: Performed By: #### B NP3, BMP3, MG3 #### [facility] [address] [place], [place] Anion gap [Moles/Vol] 6 mmol/L Normal 3-13 [facility] Comment on above: Performed By: #### B NP3, BMP3, MG3 #### [facility] [address] [place] [address] Calcium [Mass/Vol] 8.3 mg/dL Low 8.4-10.4 [facility] Comment on above: Performed By: #### B NP3, BMP3, MG3 #### [facility] [address] [place] [address] Chloride [Moles/Vol] 110 mmol/L High 98-107 [facility] Comment on above: Performed By: #### B NP3, BMP3, MG3 #### [facility] [address] [place] [address] CO2 [Moles/Vol] 21 mmol/L Low 22-30 [facility] Comment on above: Performed By: #### B NP3, BMP3, MG3 #### [facility] [address] [place] [address] Glucose [Mass/Vol] 136 mg/dL High 70-100 [facility] Comment on above: Performed By: #### B NP3, BMP3, MG3 #### [facility] [address] [place] [address] Urea nitrogen [Mass/Vol] 76 mg/dL High 7-20 [facility] Comment on above: Performed By: #### B NP3, BMP3, MG3 #### [facility] [address] [place] [address] Creatinine [Mass/Vol] 2.32 mg/dL High 0.52-1.25 [facility] Comment on above: Performed By: #### B NP3, BMP3, MG3 #### [address] [place] [address] GFR/1.73 sq M.predicted among blacks MDRD (S/P/Bld) [Vol rate/Area] 29.8 mL/min/{1.73_m2} Abnormal >60 [facility] Comment on above: Performed By: #### B NP3, BMP3, MG3 #### [address] [place] [address] GFR/1.73 sq M.predicted among non-blacks MDRD (S/P/Bld) [Vol rate/Area] 25.7 mL/min/{1.73_m2} Abnormal >60 [facility] Comment on above: Result Comment: KDIG O guidelines provide the following GFR categories: Stage GFR(ml/min/1.73 m2) Terms G1 >=90 Normal or high G2 60-89 Mildly decreased* G3a 45-59 Mildly to moderately decreased G3b 30-44 Moderately to severely decreased G4 15-29 Severely decreased G5 <15 Kidney failure *Relative to young adult level. In the absence of evidence of kidney damage, neither GFR category G1 nor G2 fulfill the criteria for CKD. The CKD-EPI equation is validated in individuals 18 years of age and older. Currently the best equation for estimating glomerular filtration rate (GFR) from serum creatinine in children is the Bedside Bocanegra equation. It is less accurate in patients with extremes of muscle mass, restriction of dietary protein, ingestion of creatine, extra-renal metabolism of creatinine, or treatment with medications that affect renal tubular creatinine secretion. Performed By: #### B SOURAV3SARIKA MG3 #### [facility] [address] [place] [address] Chloride [Moles/Vol] 108 mmol/L High 98-107 [facility] Comment on above: Performed By: #### B SOURAV3ESTEFANY3 MG3 #### [address] [place] [address] Potassium [Moles/Vol] 3.2 mmol/L Low 3.5-5.1 [facility] Comment on above: Performed By: #### B SOURAV3ESTEFANY3 MG3 #### [address] [place] [address] Sodium [Moles/Vol] 135 mmol/L Normal 135-145 [facility] Comment on above: Performed By: #### B SOURAV3ESTEFANY3 MG3 #### [address] [place] [address] Anion gap [Moles/Vol] 7 mmol/L 3 - 13 mmol/L [facility] Work Phone: Anion gap [Moles/Vol] 6 mmol/L 3 - 13 mmol/L [facility] Work Phone: Chloride [Moles/Vol] 110 mmol/L High 98 - 10 7 mmol/L [facility] Work Phone: Chloride [Moles/Vol] 108 mmol/L High 98 - 10 7 mmol/L [facility] Work Phone: Creatinine [Mass/Vol] 2.35 mg/dL High 0.52 - 1.25 mg/dL [facility] Work Phone: Creatinine [Mass/Vol] 2.32 mg/dL High 0.52 - 1.25 mg/dL [facility] Work Phone: EGFR IF NonAfrican Cambodian 25.7 mL/min Abnormal >60 [facility] Work Phone: Comment on above: KDIGO guidelines pro vide the following GFR categories: Stage GFR(ml/min/1.73 m2) Terms G1 >=90 Normal or high G2 60-89 Mildly decreased* G3a 45-59 Mildly to moderately decreased G3b 30-44 Moderately to severely decreased G4 15-29 Severely decreased G5 <15 Kidney failure *Relative to young adult level. In the absence of evidence of kidney damage, neither GFR category G1 nor G2 fulfill the criteria for CKD. The CKD-EPI equation is validated in individuals 18 years of age and older. Currently the best equation for estimating glomerular filtration rate (GFR) from serum creatinine in children is the Bedside Bocanegra equation. It is less accurate in patients with extremes of muscle mass, restriction of dietary protein, ingestion of creatine, extra-renal metabolism of creatinine, or treatment with medications that affect renal tubular creatinine secretion. EGFR IF NonAfrican Cambodian 25.3 mL/min Abnormal >60 [employer] Work Phone: Comment on above: KDIGO guidelines pro vide the following GFR categories: Stage GFR(ml/min/1.73 m2) Terms G1 >=90 Normal or high G2 60-89 Mildly decreased* G3a 45-59 Mildly to moderately decreased G3b 30-44 Moderately to severely decreased G4 15-29 Severely decreased G5 <15 Kidney failure *Relative to young adult level. In the absence of evidence of kidney damage, neither GFR category G1 nor G2 fulfill the criteria for CKD. The CKD-EPI equation is validated in individuals 18 years of age and older. Currently the best equation for estimating glomerular filtration rate (GFR) from serum creatinine in children is the Bedside Bocanegra equation. It is less accurate in patients with extremes of muscle mass, restriction of dietary protein, ingestion of creatine, extra-renal metabolism of creatinine, or treatment with medications that affect renal tubular creatinine secretion. GFR/1.73 sq M predicted among blacks MDRD (S/P/Bld) [Vol rate/Area] 29.8 mL/min/{1.73_m2} Abnormal >60 [employer] Work Phone: GFR/1.73 sq M predicted among blacks MDRD (S/P/Bld) [Vol rate/Area] 29.4 mL/min/{1.73_m2} Abnormal >60 [employer] Work Phone: Glucose [Mass/Vol] 139 mg/dL High 70 - 100 mg/dL [facility] Work Phone: [phone] Glucose [Mass/Vol] 136 mg/dL High 70 - 100 mg/dL [facility] Work Phone: [phone] Sodium [Moles/Vol] 139 mmol/L 135 - 145 mmol/L [facility] Work Phone: [phone] Sodium [Moles/Vol] 135 mmol/L 135 - 145 mmol/L [facility] Work Phone: [phone] Urea nitrogen [Mass/Vol] 76 mg/dL High 7 - 20 mg/dL [facility] Work Phone: [phone] Urea nitrogen [Mass/Vol] 79 mg/dL High 7 - 20 mg/dL [facility] Work Phone: [phone] C-Reactive Proteinon 021 CRP [Mass/Vol] 148.3 mg/L High 0.0-6.0 [facility] [employer] Comment on above: Result Comment: . Performed By: #### B NP3, BMP3, MG3 #### [facility] [email or web address] [address] [address] CRP [Mass/Vol] 148.3 mg/L High 0.0 - 6.0 mg/L [facility] Work Phone: [phone] Comment on above: . Interpretation and review of laboratory results Abnormal [facility] Work Phone: [phone] Test Performed by [facility] [email or web address] [facility], [address] [place] [address] [facility] Work Phone: [phone] CBC Auto Differentialon 08-28 Absolute Baso # 0.0 10*3/uL 0.0 - 0.2 10*3/uL [facility] Work Phone: [phone] Absolute Neut # 4.9 10*3/uL 1.8 - 7.0 10*3/uL [facility] Work Phone: [phone] Basophils/100 WBC (Bld) 0.1 % 0.0 - 2.0 % [facility] Work Phone: [phone] Eosinophils (Bld) [#/Vol] 0.0 10*3/uL 0.0 - 0.5 10*3/uL [facility] Work Phone: [phone] Eosinophils/100 WBC (Bld) 0.1 % Low 1.0 - 6.0 % [employer] Work Phone: [phone] Erythrocyte distribution width (RBC) [Ratio] 14.4 % 11.5 - 14.5 % [employer] Work Phone: [phone] Granulocytes/100 WBC (Bld) 79.8 % 40.0 - 80.0 % [employer] Work Phone: [phone] Hematocrit (Bld) [Volume fraction] 30.0 % Low 40.0 - 52.0 % [employer] Work Phone: [phone] Hemoglobin (Bld) [Mass/Vol] 9.9 g/dL Low 13.0 - 18.0 g/dL [employer] Work Phone: [phone] Interpretation and review of laboratory results Abnormal [employer] Work Phone: [phone] Lymphocytes (Bld) [#/Vol] 0.6 10*3/uL Low 1.0 - 4.3 10*3/uL [employer] Work Phone: [phone] Lymphocytes/100 WBC (Bld) 9.4 % Low 20.0 - 40.0 % [employer] Work Phone: [phone] MCH (RBC) [Entitic mass] 33.4 pg 26.0 - 34.0 pg [employer] Work Phone: [phone] MCHC (RBC) [Mass/Vol] 33.0 % 32.0 - 36.0 % [employer] Work Phone: [phone] MCV (RBC) [Entitic vol] 101.1 fL High 80.0 - 98.0 fL [employer] Work Phone: [phone] Monocytes (Bld) [#/Vol] 0.6 10*3/uL 0.0 - 0.8 10*3/uL [employer] Work Phone: [phone] Monocytes/100 WBC (Bld) 10.6 % High 2.0 - 10.0 % [employer] Work Phone: [phone] Platelet mean volume (Bld) [Entitic vol] 9.2 fL 7.4 - 10.4 fL [employer] Work Phone: [phone] Platelets (Bld) [#/Vol] 131 10*3/uL Low 140 - 440 10*3/uL [facility] Work Phone: RBC (Bld) [#/Vol] 2.97 10*6/uL Low 4.40 - 5.90 10*6/uL [facility] Work Phone: WBC (Bld) [#/Vol] 6.1 10*3/uL 3.6 - 10.7 10*3/uL [facility] Work Phone: Test Performed by [facility], [address] [place] [address] [facility] Work Phone: CR Chest Portableon 09-14-19 21 CR Chest Portable Patient Name: AMAURY DAVIS Diagnostic Radiology ACCESSION EXAM DATE/TIME PROCEDURE ORDERING PROVIDER [id number] 09/13/2020 06:54 EDT CR Chest Portable [place] [facility] ELYRIA CPT code 88239 Reason For Exam (CR Chest Portable) Right pleural effusion Report PORTABLE CHEST (Frontal View) History: Respiratory abnormality, pleural effusion Comparison: 09/12/2020 Findings: Frontal portable chest view shows right pleural effusion with basilar atelectasis/infiltrate, not significantly changed from last exam. There is also unchanged. There is small left midlung infiltrate. Both lungs show interstitial prominence without position. The heart is borderline enlarged with median sternotomy noted. There is no mediastinal widening, appreciable pneumothorax, or other significant interval change. Report Dictated on Final Dictated: 09/13/2020 7:24 am Dictating Physician: MD VÍCTOR, AUDIE Signed Date and Time: 09/13/2020 7:27 am Signed by: MD RENEE AHMAD Transcribed Date and Time: 09/13/2020 7:24 Normal [facility] CT CHEST WO CONTRASTon 09-13 Jax, [facility] Incoming Radiology Results From [facility] - 09/13/2020 2:53 PM EDT Patient Name: AMAURY BLANK Computed Tomography ACCESSION EXAM DATE/TIME PROCEDURE ORDERING PROVIDER [id number] 09/13/2020 13:[address] Thorax w/o Contrast Chadwick LIZ KYLAH CPT code 51570 Reason For Exam (CT Thorax w/o Contrast) Preoperative evaluation of right pleural effusion Report CT SCAN OF THE CHEST WITHOUT CONTRAST: INDICATION: Evaluate right pleural effusion. COMPARISON: No previous studies are available for comparison. CT scans of the chest were performed without intravenous contrast administration, with images from the thoracic inlet to the upper abdomen. The images are reviewed in the axial, sagittal and coronal planes. Bilateral pleural thickening is seen and there is pleural parenchymal scarring on the right. A small bore right-sided chest tube is present and there is a small right-sided pneumothorax. Mild atelectasis is seen involving the left lung base and focal consolidation is noted involving the left major fissure. Once again noted is a small spiculated cavitary lesion involving the left lower lobe The heart is normal in size without pericardial effusion or pericardial thickening. Coronary artery calcifications are present. There are no congestive changes in the pulmonary vasculature. Evaluation of the mediastinum demonstrates no mass nor adenopathy. The visualized portions of the liver, spleen, kidneys, and adrenals are unremarkable. Arthritic changes of the spine are noted. IMPRESSION: There is bilateral pleural thickening and pleural parenchymal scarring is seen on the right small right-sided chest tube is present with a small residual pneumothorax. Atelectasis is noted involving the left lung base and focal consolidation is seen involving the left major fissure no acute infiltrates are identified. Once again seen is a small spiculated cavitary lesion of the left lower lobe. Computed Tomography Report Report Dictated on --- Final --- Dictated: 09/13/2020 2:46 pm Dictating Physician: DO PRADO ALFRED Signed Date and Time: 09/13/2020 2:52 pm Signed by: DO PRADO ALFRED Transcribed Date and Time: 09/13/2020 2:46 [facility] Work Phone: Patient Name: AMAURY DAVIS Computed Tomography ACCESSION EXAM DATE/TIME PROCEDURE ORDERING PROVIDER [id number] 09/13/2020 13:[address] Thorax w/o Contrast Chadwick LIZ, KYLAH CPT code 91859 Reason For Exam (CT Thorax w/o Contrast) Preoperative evaluation of right pleural effusion Report CT SCAN OF THE CHEST WITHOUT CONTRAST: INDICATION: Evaluate right pleural effusion. COMPARISON: No previous studies are available for comparison. CT scans of the chest were performed without intravenous contrast administration, with images from the thoracic inlet to the upper abdomen. The images are reviewed in the axial, sagittal and coronal planes. Bilateral pleural thickening is seen and there is pleural parenchymal scarring on the right. A small bore right-sided chest tube is present and there is a small right-sided pneumothorax. Mild atelectasis is seen involving the left lung base and focal consolidation is noted involving the left major fissure. Once again noted is a small spiculated cavitary lesion involving the left lower lobe The heart is normal in size without pericardial effusion or pericardial thickening. Coronary artery calcifications are present. There are no congestive changes in the pulmonary vasculature. Evaluation of the mediastinum demonstrates no mass nor adenopathy. The visualized portions of the liver, spleen, kidneys, and adrenals are unremarkable. Arthritic changes of the spine are noted. IMPRESSION: There is bilateral pleural thickening and pleural parenchymal scarring is seen on the right small right-sided chest tube is present with a small residual pneumothorax. Atelectasis is noted involving the left lung base and focal consolidation is seen involving the left major fissure no acute infiltrates are identified. Once again seen is a small spiculated cavitary lesion of the left lower lobe. Computed Tomography Report Report Dictated on --- Final --- Dictated: 09/13/2020 2:46 pm Dictating Physician: DO PRADO ALFRED Signed Date and Time: 09/13/2020 2:52 pm Signed by: DO PRADO ALFRED Transcribed Date and Time: 09/13/2020 2:46 [facility] Work Phone: CT Chest w/o Contraston 08-28 CT Chest w/o Contrast Patient Name: AMAURY JAEGER Computed Tomography ACCESSION EXAM DATE/TIME PROCEDURE ORDERING PROVIDER [id number] 09/13/2020 13:[address] Thorax w/o Contrast Chadwick LIZKYLAH CPT code 47004 Reason For Exam (CT Thorax w/o Contrast) Preoperative evaluation of right pleural effusion Report CT SCAN OF THE CHEST WITHOUT CONTRAST: INDICATION: Evaluate right pleural effusion. COMPARISON: No previous studies are available for comparison. CT scans of the chest were performed without intravenous contrast administration, with images from the thoracic inlet to the upper abdomen. The images are reviewed in the axial, sagittal and coronal planes. Bilateral pleural thickening is seen and there is pleural parenchymal scarring on the right. A small bore right-sided chest tube is present and there is a small right-sided pneumothorax. Mild atelectasis is seen involving the left lung base and focal consolidation is noted involving the left major fissure. Once again noted is a small spiculated cavitary lesion involving the left lower lobe The heart is normal in size without pericardial effusion or pericardial thickening. Coronary artery calcifications are present. There are no congestive changes in the pulmonary vasculature. Evaluation of the mediastinum demonstrates no mass nor adenopathy. The visualized portions of the liver, spleen, kidneys, and adrenals are unremarkable. Arthritic changes of the spine are noted. IMPRESSION: There is bilateral pleural thickening and pleural parenchymal scarring is seen on the right small right-sided chest tube is present with a small residual pneumothorax. Atelectasis is noted involving the left lung base and focal consolidation is seen involving the left major fissure no acute infiltrates are identified. Once again seen is a small spiculated cavitary lesion of the left lower lobe. Computed Tomography Report Report Dictated on Final Dictated: 09/13/2020 2:46 pm Dictating Physician: DO PRADO ALFRED Signed Date and Time: 09/13/2020 2:52 pm Signed by: DO PRADO ALFRED Transcribed Date and Time: 09/13/2020 2:46 Normal [facility] Folateon 09-13-2020 Folate 15.1 ng/mL Normal 2.8-20.0 [facility] Comment on above: Performed By: #### B MP3, HEMDF #### [address] [address] Folate 15.1 ng/mL 2.8 - 20.0 ng/mL [facility] Work Phone: Hemoglobin A1Con 09-13-2020 Glucose [Mass/Vol] 114 mg/dL Normal [facility] Comment on above: Performed By: #### B NP3, BMP3, MG3 #### [address] [place] [address] HbA1c (Bld) [Mass fraction] 5.6 % Normal [facility] Comment on above: Result Comment: Norm al less than 5.7% Prediabetes 5.7% to 6.4% Diabetes 6.5% or higher --HgbA1C levels may not be accurate in patients who have renal disease, received recent blood transfusions, are anemic, or who have dyshemoglobinemia. Performed By: #### B NP3, BMP3, MG3 #### [address] [address] [place] [address] eAG 114 mg/dL [facility] Work Phone: HbA1c (Bld) [Mass fraction] 5.6 % [facility] Work Phone: Comment on above: Normal less than 5.7 % Prediabetes 5.7% to 6.4% Diabetes 6.5% or higher --HgbA1C levels may not be accurate in patients who have renal disease, received recent blood transfusions, are anemic, or who have dyshemoglobinemia. Test Performed by [facility], [address] [place] [address] [facility] Work Phone: Hemogram w/ Autodiffon 09-13 Abs Baso Cnt 0.0 10*3/uL Normal 0.0-0.2 [facility] Comment on above: Performed By: #### B NP3, BMP3, MG3 #### [address] Abs Neutrophile Cnt 4.9 10*3/uL Normal 1.8-7.0 [facility] Comment on above: Performed By: #### B NP3, BMP3, MG3 #### [address] [address] Basophils/100 WBC (Bld) 0.1 % Normal 0.0-2.0 S [facility] Comment on above: Performed By: #### B NP3, BMP3, MG3 #### [address] [address] [address] [place], [place] Eosinophils (Bld) [#/Vol] 0.0 10*3/uL Normal 0.0-0.5 [facility] Comment on above: Performed By: #### B NP3, BMP3, MG3 #### [address] [address] [address] [place], [place] Eosinophils/100 WBC (Bld) 0.1 % Low 1.0-6.0 [facility] Comment on above: Performed By: #### B NP3, BMP3, MG3 #### [address] [address] [place], [place] Erythrocyte distribution width (RBC) [Ratio] 14.4 % Normal 11.5-14.5 [facility] Comment on above: Performed By: #### B NP3, BMP3, MG3 #### [address] [address] [address] [place], [place] Granulocytes/100 WBC (Bld) 79.8 % Normal 40.0-80.0 [facility] Comment on above: Performed By: #### B NP3, BMP3, MG3 #### [address] [address] [address] [place], [place] Hematocrit (Bld) [Volume fraction] 30.0 % Low 40.0-52.0 [facility] Comment on above: Performed By: #### B NP3, BMP3, MG3 #### [address] [address] [address] [place], [place] Hemoglobin (Bld) [Mass/Vol] 9.9 g/dL Low 13.0-18.0 [facility] Comment on above: Performed By: #### B NP3, BMP3, MG3 #### [address] [address] [place], [place] Lymphocytes (Bld) [#/Vol] 0.6 10*3/uL Low 1.0-4.3 [facility] Comment on above: Performed By: #### B NP3, BMP3, MG3 #### [address] Lymphocytes/100 WBC (Bld) 9.4 % Low 20.0-40.0 [facility] Comment on above: Performed By: #### B NP3, BMP3, MG3 #### [address] MCH (RBC) [Entitic mass] 33.4 pg Normal 26.0-34.0 [facility] Comment on above: Performed By: #### B NP3, BMP3, MG3 #### [address] MCHC 33.0 % Normal 32.0-36.0 [facility] Comment on above: Performed By: #### B NP3, BMP3, MG3 #### [address] MCV (RBC) [Entitic vol] 101.1 fL High 80.0-98.0 S [facility] Comment on above: Performed By: #### B NP3, BMP3, MG3 #### [address] Monocytes (Bld) [#/Vol] 0.6 10*3/uL Normal 0.0-0.8 [facility] Comment on above: Performed By: #### B NP3, BMP3, MG3 #### [address] Monocytes/100 WBC (Bld) 10.6 % High 2.0-10.0 S [facility] Comment on above: Performed By: #### B NP3, BMP3, MG3 #### [address] Platelet mean volume (Bld) [Entitic vol] 9.2 fL Normal 7.4-10.4 [facility] Comment on above: Performed By: #### B NP3, BMP3, MG3 #### [address] [place] [address] Platelets (Bld) [#/Vol] 131 10*3/uL Low 140-440 [facility] Comment on above: Performed By: #### B NP3, BMP3, MG3 #### [facility] [address] [place] [address] RBC (Bld) [#/Vol] 2.97 10*6/uL Low 4.40-5.90 [facility] Comment on above: Performed By: #### B NP3, BMP3, MG3 #### [facility] [address] [place] [address] WBC (Bld) [#/Vol] 6.1 10*3/uL Normal 3.6-10.7 [facility] Comment on above: Performed By: #### B NP3, BMP3, MG3 #### [address] [address] [place] [address] Medical Cytologyon 1 Medical Cytology [facility] N [id number] DEPARTMENT OF PATHOLOGY AND [facility] LABORATORY MEDICINE [address] [place] [address] FINAL MEDICAL CYTOLOGY REPORT NAME: AMAURY BLANK : 1940 80 Y [facility] NO.: [id number] LOCATION: H6I 6 H TOWER INPT PROCEDURE 09/13/2020 6124 01 DATE: PHYSICIAN: KYLAH LIZ MD RECEIVED DATE: 09/14/2020 ATTENDING: GILBERT HENRY M.D. REPORT DATE: 09/16/2020 COPIES TO: BERT SUÁREZ MD; ORLANDO GOETZ M.D. CLINICAL DATA: DIAGNOSIS NO MALIGNANT CELLS IDENTIFIED. CELLULAR FINDINGS CONSISTENT WITH INFLAMMATORY PROCESS. Comment: Please correlate with any culture results. Comment: Specimen volumes < 75 mL increase the risk of false-negative, indeterminate, or nondiagnostic results. The low volume submitted in this case may preclude adequate evaluation. Proceed with caution and consider repeat sampling of any reaccumulated fluid as clinically warranted. Reference: Ayanna CHANDRA, et al. A minimum fluid volume of 75 mL is needed to ensure adequacy in a pleural effusion. Cancer Cytopath. 2014 Feb;122(9):657-65. SPECIMEN: PLEURAL FLUID, RIGHT , CHEST DRAIN PROCEDURE(S): FLUID COLLECTION GROSS DESCRIPTION: 5 ml, thick, Red fluid, w/o cytolyt. Materials Prepared & Examined: Cell Blocks . . . . . . . . . . . . 1 Monolayers . . . . . . . . . . . . 1 DD0 Screened by SUE ORTIZ M.D. The following statement applies to all immunohistochemistry, in situ hybridization, molecular studies, and immunofluorescence testing. The use of one or more reagents in the above tests is regulated as an analyte specific reagent (ASR). These tests were developed and their performance characteristics determined by the clinical laboratories of [facility]. They have not been cleared by the US Food and Drug Administration (FDA). The FDA has determined that such clearance or approval is not necessary. All the above immunostains were performed on paraffin embedded tissue. Appropriate positive and negative controls (where applicable) were run in parallel with the patient's specimen; these controls showed expected staining pattern, with acceptable intensity of staining. Immunohistochemical assays have not been validated on decalcified tissues. Results should be interpreted with caution given the raised possibility of false negativity on decalcified specimens. Case reviewed at [address] [place] [address]. DEPARTMENT OF PATHOLOGY AND LABORATORY MEDICINE [place], [place] [address] [email or web address] [facility] QRuso Metabolic Panelon 09-13-2020 Calcium [Mass/Vol] 8.3 mg/dL Low 8.4 - 10. 4 mg/dL [facility] Work Phone: CO2 [Moles/Vol] 21 mmol/L Low 22 - 30 mmol/L [facility] Work Phone: Potassium [Moles/Vol] 3.2 mmol/L Low 3.5 - 5.1 mmol/L [facility] Work Phone: Otheron 09-13-2020 Test Performed by [facility], [address] [place] [id number] [place], [place] [address] Work Phone: Interpretation and review of laboratory results Abnormal [facility] Work Phone: Test Performed by [facility] [facility], [address] [place] [id number] [place], [place] [address] Work Phone: Procalcitoninon 09-13-2020 Procalcitonin 0.91 ng/mL Abnormal <0.10 [facility] [employer] [facility] Comment on above: Performed By: #### B MP3, HEMDF #### [facility] [address] [place] [phone] Interpretation and review of laboratory results Abnormal [facility] Work Phone: Procalcitonin 0.91 ng/mL Abnormal <0.10 [facility] Work Phone: Sodium [Moles/Vol] See Below [facility] Work Phone: Comment on above: PCT <0.50 = Low risk of severe sepsis and/or septic shock. PCT >2.00 = High risk of severe sepsis and/or septic shock. Test Performed by [facility] [facility], [facility] [email or web address], [place] [id number] [place], [place] [address] Work Phone: TSH without Reflexon 021 TSH Qn 1.679 u[IU]/mL 0.465 - 4.680 u[IU]/mL [facility] Work Phone: Test Performed by [facility] [email or web address] [facility], [address] [place] [address] [facility] Work Phone: Thyroid Stim. Hormoneon 08-28 Thyroid Stim. Hormone 1.679 u[IU]/mL Normal 0.46 5-4.68 0 [facility] Comment on above: Performed By: #### B NP3, BMP3, MG3 #### [facility] [email or web address] [facility] [address] [place] [address] Vitamin B12on 09-13-2020 Cobalamin (Vitamin B12) [Mass/Vol] pg/mL High 239-931 [facility] Comment on above: Performed By: #### B MP3, HEMDF #### [facility] [email or web address] [facility] [address] [place] [address] Cobalamin (Vitamin B12) [Mass/Vol] pg/mL High 239 - 931 pg/mL [facility] Work Phone: Interpretation and review of laboratory results Abnormal [facility] Work Phone: XR CHEST PORTABLEon 09-14-19 Patient Name: AMAURY DAVIS Diagnostic Radiology ACCESSION EXAM DATE/TIME PROCEDURE ORDERING PROVIDER [id number] 09/13/2020 06:54 EDT CR Chest Portable Chadwick LIZ SARAH CPT code 86841 Reason For Exam (CR Chest Portable) Right pleural effusion Report PORTABLE CHEST (Frontal View) History: Respiratory abnormality, pleural effusion Comparison: 09/12/2020 Findings: Frontal portable chest view shows right pleural effusion with basilar atelectasis/infiltrate, not significantly changed from last exam. There is also unchanged. There is small left midlung infiltrate. Both lungs show interstitial prominence without position. The heart is borderline enlarged with median sternotomy noted. There is no mediastinal widening, appreciable pneumothorax, or other significant interval change. Report Dictated on --- Final --- Dictated: 09/13/2020 7:24 am Dictating Physician: MD RENEE AHMAD Signed Date and Time: 09/13/2020 7:27 am Signed by: MD RENEE AHMAD Transcribed Date and Time: 09/13/2020 7:24 [facility] Work Phone: Jax, [facility] Incoming Radiology Results From [facility] - 09/13/2020 7:28 AM EDT Patient Name: AMAURY BLANK Diagnostic Radiology ACCESSION EXAM DATE/TIME PROCEDURE ORDERING PROVIDER [id number] 09/13/2020 06:54 EDT CR Chest Portable Chadwick LIZ, KYLAH CPT code 57595 Reason For Exam (CR Chest Portable) Right pleural effusion Report PORTABLE CHEST (Frontal View) History: Respiratory abnormality, pleural effusion Comparison: 09/12/2020 Findings: Frontal portable chest view shows right pleural effusion with basilar atelectasis/infiltrate, not significantly changed from last exam. There is also unchanged. There is small left midlung infiltrate. Both lungs show interstitial prominence without position. The heart is borderline enlarged with median sternotomy noted. There is no mediastinal widening, appreciable pneumothorax, or other significant interval change. Report Dictated on --- Final --- Dictated: 09/13/2020 7:24 am Dictating Physician: MD RENEE AHMAD Signed Date and Time: 09/13/2020 7:27 am Signed by: MD RENEE AHMAD Transcribed Date and Time: 09/13/2020 7:24 [facility] Work Phone: CR Chest 1 View Frontalon CR Chest 1 View Frontal Patient Name: AMAURY CÁRDENAS Diagnostic Radiology ACCESSION EXAM DATE/TIME PROCEDURE ORDERING PROVIDER [id number] 09/12/2020 14:33 EDT CR Chest 1 View Frontal Chadwick LIZ, KYLAH CPT code 55563 Reason For Exam (CR Chest 1 View Frontal) Pigtail catheter placement Report CHEST (Frontal View) History:, Pigtail catheter placement, follow-up Comparison: 09/12/2020, 7:44 AM Findings: Frontal chest view shows small residual right pleural effusion with basilar atelectasis/infiltrate, all have decreased compared to the exam done earlier today. Tip of pigtail catheter overlies the right costophrenic angle. Compared to the CT of 09/11/2020, the previously described spiculated cavitary nodular lesion in the left lower lobe is not clearly visualized but there is ill-defined opacity/infiltrate more superiorly in the left midlung all require continued evaluation. The heart is borderline in size with median sternotomy and valve prosthesis noted. There is no mediastinal widening, pneumothorax, or other significant change from today's earlier radiograph. Report Dictated on Final Dictated: 09/12/2020 1:39 pm Dictating Physician: MD RENEE AHMAD Signed Date and Time: 09/12/2020 1:45 pm Signed by: MD RENEE AHMAD Transcribed Date and Time: 09/12/2020 1:39 Normal [facility] CR Chest Portableon 09-13-19 21 CR Chest Portable [id number] Radiology ACCESSION EXAM DATE/TIME PROCEDURE ORDERING PROVIDER [id number] 09/12/2020 07:47 EDT CR Chest Portable Chadwick LIZ ELYRIA CPT code 93721 Reason For Exam (CR Chest Portable) Dyspnea Report CLINICAL INFORMATION: Shortness of breath. Portable view of the chest at 0745 hours is provided without comparison. 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 The cardiac silhouette and mediastinum are otherwise normal. There is a large right lower lobe effusion. This results in atelectasis in the right lung base. IMPRESSION: 1. No postoperative changes (CABG). 2. Large right-sided pleural effusion. Report Dictated on Final Dictated: 09/12/2020 8:20 am Dictating Physician: MD AGUILAR JEFFREY Signed Date and Time: 09/12/2020 8:26 am Signed by: MD AGUILAR JEFFREY Transcribed Date and Time: 09/12/2020 8:20 Normal [facility] CREATININE, RANDOM URINEon 0 09-12-2020 Creatinine (U) [Mass/Vol] 91.7 mg/dL No Range [facility] Work Phone: CT CHEST WO CONTRASTon 09-12 [facility], [facility] In[facility] Results From [facility] - 09/12/2020 8:31 AM EDT Patient Name: AMAURY BLANK Computed Tomography ACCESSION EXAM DATE/TIME PROCEDURE ORDERING PROVIDER [id number] 09/12/2020 07:[address] Thorax w/o Contrast DO DAVID, MARIA ELENA DOWNS CPT code 42441 Reason For Exam (CT Thorax w/o Contrast) shorntess of breath, empyema vs parapneumonic effusion Report CLINICAL INFORMATION: Shortness of breath. Pleural effusion. 3 mm axial cuts are obtained through the chest without IV contrast. FINDINGS: There is a large right-sided pleural effusion. Air is noted in the periphery of this effusion consistent with an empyema. The large effusion results in compressive atelectasis in the right lung base. In addition, portions of the right lower lobe have a masslike quality. A 1.5 to 2 cm spiculated nodule with cavitation is noted in the left lower lobe. The heart size is normal. The patient is status post CABG. Small renal cysts are noted bilaterally. Upper cuts of the abdomen included on the examination are otherwise grossly normal on this unenhanced scan. IMPRESSION: 1. Large right-sided pleural effusion. Air is noted in the collection suggesting a large empyema. 2. Infiltrate or masslike density in the compressed right lower lobe. 3. 1.5 - 2 cm spiculated cavitary nodule in the left lower lobe. There is atelectasis in the superior segment of the left lower lobe. 4. Renal cysts. Report Dictated on --- Final --- Dictated: 09/12/2020 8:27 am Dictating Physician: MD AGUILAR JEFFREY Signed Date and Time: 09/12/2020 8:30 am Signed by: MD AGUILAR JEFFREY Transcribed Date and Time: 09/12/2020 8:27 [facility] Work Phone: Patient Name: AMAURY DAVIS Computed Tomography ACCESSION EXAM DATE/TIME PROCEDURE ORDERING PROVIDER [id number] 09/12/2020 07:[address] Thorax w/o Contrast DO KAMINSKI INDERPARTAP SINGH CPT code 80765 Reason For Exam (CT Thorax w/o Contrast) shorntess of breath, empyema vs parapneumonic effusion Report CLINICAL INFORMATION: Shortness of breath. Pleural effusion. 3 mm axial cuts are obtained through the chest without IV contrast. FINDINGS: There is a large right-sided pleural effusion. Air is noted in the periphery of this effusion consistent with an empyema. The large effusion results in compressive atelectasis in the right lung base. In addition, portions of the right lower lobe have a masslike quality. A 1.5 to 2 cm spiculated nodule with cavitation is noted in the left lower lobe. The heart size is normal. The patient is status post CABG. Small renal cysts are noted bilaterally. Upper cuts of the abdomen included on the examination are otherwise grossly normal on this unenhanced scan. IMPRESSION: 1. Large right-sided pleural effusion. Air is noted in the collection suggesting a large empyema. 2. Infiltrate or masslike density in the compressed right lower lobe. 3. 1.5 - 2 cm spiculated cavitary nodule in the left lower lobe. There is atelectasis in the superior segment of the left lower lobe. 4. Renal cysts. Report Dictated on --- Final --- Dictated: 09/12/2020 8:27 am Dictating Physician: MD AGUILAR JEFFREY Signed Date and Time: 09/12/2020 8:30 am Signed by: MD AGUILAR JEFFREY Transcribed Date and Time: 09/12/2020 8:27 [facility] Work Phone: CT Chest w/o Contraston 08-28 CT Chest w/o Contrast [id number] Comput[facility] Tomography ACCESSION EXAM DATE/TIME PROCEDURE ORDERING PROVIDER [id number] 09/12/2020 07:[address] Thorax w/o Contrast DO KAMINSKI INDERPARTAP SINGH CPT code 39407 Reason For Exam (CT Thorax w/o Contrast) shorntess of breath, empyema vs parapneumonic effusion Report CLINICAL INFORMATION: Shortness of breath. Pleural effusion. 3 mm axial cuts are obtained through the chest without IV contrast. FINDINGS: There is a large right-sided pleural effusion. Air is noted in the periphery of this effusion consistent with an empyema. The large effusion results in compressive atelectasis in the right lung base. In addition, portions of the right lower lobe have a masslike quality. A 1.5 to 2 cm spiculated nodule with cavitation is noted in the left lower lobe. The heart size is normal. The patient is status post CABG. Small renal cysts are noted bilaterally. Upper cuts of the abdomen included on the examination are otherwise grossly normal on this unenhanced scan. IMPRESSION: 1. Large right-sided pleural effusion. Air is noted in the collection suggesting a large empyema. 2. Infiltrate or masslike density in the compressed right lower lobe. 3. 1.5 - 2 cm spiculated cavitary nodule in the left lower lobe. There is atelectasis in the superior segment of the left lower lobe. 4. Renal cysts. Report Dictated on Final Dictated: 09/12/2020 8:27 am Dictating Physician: MD AGUILAR JEFFREY Signed Date and Time: 09/12/2020 8:30 am Signed by: MD AGUILAR JEFFREY Transcribed Date and Time: 09/12/2020 8:27 Normal [facility] CT GUIDED PLEURAL DRAINAGE W CATH PERCon 09-12-2020 [id number] Computed Tomography ACCESSION EXAM DATE/TIME PROCEDURE ORDERING PROVIDER [id number] 09/12/2020 10:[address] Insert Cath Pleura w/ Chadwick LIZ, KYLAH Image CPT code 75353 Reason For Exam (CT Insert Cath Pleura w/ Image) Right pigtail catheter placement Report EXAMINATION: CT-guided right thoracic chest tube placement. CLINICAL INFORMATION: Shortness of breath. Large right thoracic empyema. Prior to the procedure, the details of the examination were explained to the patient. He understands the risks, alternative, and benefits and wishes to proceed. Informed written consent is obtained and placed in the chart. ANESTHESIA: 50 mcg Fentanyl IV for intraservice conscious sedation. The patient was monitored by an independent observer/nurse for a total of 30 minutes. Local anesthesia is maintained with Lidocaine. PROCEDURE: The patient was placed supine on the CT table. A limited CT scan through the chest demonstrates a very large collection in the right hemithorax. A site was picked for percutaneous drainage. This area was prepped and draped in the usual fashion. Under CT guidance, a 12 Armenian pigtail drainage catheter was advanced into position. A CT was performed to confirm its position. Subsequently, approximately 60 ml of frankly purulent, foul-smelling iverson fluid was aspirated. There were no immediate complications. The patient tolerated the procedure without difficulty and was transferred back to the floor in stable condition. IMPRESSION: 1. Successful drainage of the right chest as detailed above. Approximately 60 ml of frankly purulent, foul-smelling iverson fluid was withdrawn and sent to the laboratory for analysis. Portions were sent for anaerobic and aerobic culture. Report Dictated on --- Final --- Dictated: 09/12/2020 10:15 am Dictating Physician: MD AGUILAR JEFFREY Signed Date and Time: 09/12/2020 10:17 am Signed by: MD AGUILAR JEFFREY Transcribed Date and Time: 09/12/2020 10:15 [facility] Work Phone: [facility], [facility] Incoming Radiology Results From [facility] - 09/12/2020 10:29 AM EDT Patient Name: AMAURY BLANK [facility]#: [id number] Computed Tomography ACCESSION EXAM DATE/TIME PROCEDURE ORDERING PROVIDER [id number] 09/12/2020 10:[address] Insert Cath Pleura jason/ Chadwick LIZ, KYLAH Image CPT code 55665 Reason For Exam (CT Insert Cath Pleura w/ Image) Right pigtail catheter placement Report EXAMINATION: CT-guided right thoracic chest tube placement. CLINICAL INFORMATION: Shortness of breath. Large right thoracic empyema. Prior to the procedure, the details of the examination were explained to the patient. He understands the risks, alternative, and benefits and wishes to proceed. Informed written consent is obtained and placed in the chart. ANESTHESIA: 50 mcg Fentanyl IV for intraservice conscious sedation. The patient was monitored by an independent observer/nurse for a total of 30 minutes. Local anesthesia is maintained with Lidocaine. PROCEDURE: The patient was placed supine on the CT table. A limited CT scan through the chest demonstrates a very large collection in the right hemithorax. A site was picked for percutaneous drainage. This area was prepped and draped in the usual fashion. Under CT guidance, a 12 Armenian pigtail drainage catheter was advanced into position. A CT was performed to confirm its position. Subsequently, approximately 60 ml of frankly purulent, foul-smelling iverson fluid was aspirated. There were no immediate complications. The patient tolerated the procedure without difficulty and was transferred back to the floor in stable condition. IMPRESSION: 1. Successful drainage of the right chest as detailed above. Approximately 60 ml of frankly purulent, foul-smelling iverson fluid was withdrawn and sent to the laboratory for analysis. Portions were sent for anaerobic and aerobic culture. Report Dictated on --- Final --- Dictated: 09/12/2020 10:15 am Dictating Physician: MD AGUILAR JEFFREY Signed Date and Time: 09/12/2020 10:17 am Signed by: MD AGUILAR JEFFREY Transcribed Date and Time: 09/12/2020 10:15 [facility] Work Phone: CT Insert Cath Pleura w/ [facility] 09-12-2020 CT Insert Cath Pleura w/ Image [facility]: [id number] Computed Tomography ACCESSION EXAM DATE/TIME PROCEDURE ORDERING PROVIDER [id number] 09/12/2020 10:[address] Insert Cath Pleura w/ Chadwick LIZ, KYLAH Image CPT code 40454 Reason For Exam (CT Insert Cath Pleura w/ Image) Right pigtail catheter placement Report EXAMINATION: CT-guided right thoracic chest tube placement. CLINICAL INFORMATION: Shortness of breath. Large right thoracic empyema. Prior to the procedure, the details of the examination were explained to the patient. He understands the risks, alternative, and benefits and wishes to proceed. Informed written consent is obtained and placed in the chart. ANESTHESIA: 50 mcg Fentanyl IV for intraservice conscious sedation. The patient was monitored by an independent observer/nurse for a total of 30 minutes. Local anesthesia is maintained with Lidocaine. PROCEDURE: The patient was placed supine on the CT table. A limited CT scan through the chest demonstrates a very large collection in the right hemithorax. A site was picked for percutaneous drainage. This area was prepped and draped in the usual fashion. Under CT guidance, a 12 Armenian pigtail drainage catheter was advanced into position. A CT was performed to confirm its position. Subsequently, approximately 60 ml of frankly purulent, foul-smelling iverson fluid was aspirated. There were no immediate complications. The patient tolerated the procedure without difficulty and was transferred back to the floor in stable condition. IMPRESSION: 1. Successful drainage of the right chest as detailed above. Approximately 60 ml of frankly purulent, foul-smelling iverson fluid was withdrawn and sent to the laboratory for analysis. Portions were sent for anaerobic and aerobic culture. Report Dictated on Final Dictated: 09/12/2020 10:15 am Dictating Physician: MD AGUILAR JEFFREY Signed Date and Time: 09/12/2020 10:17 am Signed by: MD AGUILAR JEFFREY Transcribed Date and Time: 09/12/2020 10:15 Normal [facility] Comp Metabolic Panelon 09-12 ALP [Catalytic activity/Vol] 147 U/L High 38-126 [facility] Comment on above: Performed By: #### B MP3, HEMDF #### [address] [id number] ALT [Catalytic activity/Vol] 24 U/L Normal 0-49 [facility] Comment on above: Result Comment: The ALT test is performed by an updated assay method. Please note that the reference intervals have been changed and are now sex specific. Performed By: #### B MP3, HEMDF #### [address] [address] Calcium [Mass/Vol] 9.1 mg/dL Normal 8.4-10.4 [facility] Comment on above: Performed By: #### B MP3, HEMDF #### [address] [place], [place] Glucose [Mass/Vol] 117 mg/dL High 70-100 [facility] Comment on above: Performed By: #### B MP3, HEMDF #### [facility] [address] [place], [place] Protein [Mass/Vol] 5.4 g/dL Low 6.3-8.2 [facility] Comment on above: Performed By: #### B MP3, HEMDF #### [place] [address] [address] [place], [place] Urea nitrogen [Mass/Vol] 77 mg/dL High 7-20 [facility] Comment on above: Performed By: #### B MP3, HEMDF #### [address] [place] [address] [address] [place], [place] Anion gap [Moles/Vol] 9 mmol/L Normal 3-13 [facility] Comment on above: Performed By: #### B MP3, HEMDF #### [address] [place] [address] [address] [place], [place] AST [Catalytic activity/Vol] 39 U/L Normal 15-46 [facility] Comment on above: Performed By: #### B MP3, HEMDF #### [address] [place] [address] [address] [place], [place] Bilirubin [Mass/Vol] 1.2 mg/dL Normal 0.2-1.3 [facility] Comment on above: Performed By: #### B MP3, HEMDF #### [address] [place] [address] [address] [place], [place] CO2 [Moles/Vol] 20 mmol/L Low 22-30 [facility] Comment on above: Performed By: #### B MP3, HEMDF #### [address] [place] [address] [address] [place], [place] Creatinine [Mass/Vol] 2.18 mg/dL High 0.52-1.25 [facility] Comment on above: Performed By: #### B MP3, HEMDF #### [address] [place] [address] [address] [place], [place] GFR/1.73 sq M.predicted among blacks MDRD (S/P/Bld) [Vol rate/Area] 32.2 mL/min/{1.73_m2} Abnormal >60 [facility] Comment on above: Performed By: #### B MP3, HEMDF #### [facility] [address] [place] [address] GFR/1.73 sq M.predicted among non-blacks MDRD (S/P/Bld) [Vol rate/Area] 27.8 mL/min/{1.73_m2} Abnormal >60 [facility] Comment on above: Result Comment: KDIG O guidelines provide the following GFR categories: Stage GFR(ml/min/1.73 m2) Terms G1 >=90 Normal or high G2 60-89 Mildly decreased* G3a 45-59 Mildly to moderately decreased G3b 30-44 Moderately to severely decreased G4 15-29 Severely decreased G5 <15 Kidney failure *Relative to young adult level. In the absence of evidence of kidney damage, neither GFR category G1 nor G2 fulfill the criteria for CKD. The CKD-EPI equation is validated in individuals 18 years of age and older. Currently the best equation for estimating glomerular filtration rate (GFR) from serum creatinine in children is the Bedside Bocanegra equation. It is less accurate in patients with extremes of muscle mass, restriction of dietary protein, ingestion of creatine, extra-renal metabolism of creatinine, or treatment with medications that affect renal tubular creatinine secretion. Performed By: #### Terese MP3, HEMDF #### [facility] [address] [place] [address] Chloride [Moles/Vol] 110 mmol/L High 98-107 [facility] Comment on above: Performed By: #### B MP3, HEMDF #### [facility] [address] [place] [address] Potassium [Moles/Vol] 3.5 mmol/L Normal 3.5-5.1 [facility] Comment on above: Performed By: #### B MP3, HEMDF #### [facility] [address] [place] [address] Sodium [Moles/Vol] 140 mmol/L Normal 135-145 [facility] Comment on above: Performed By: #### B MP3, HEMDF #### [facility] [address] [place], [place] Albumin [Mass/Vol] 2.8 g/dL Low 3.5-5.0 [facility] Comment on above: Performed By: #### B MP3, HEMDF #### [facility] [address], [place] Complete Urinalysison 2020 Appearance (U) Clear Normal Clear [facility] Comment on above: Result Comment: . Performed By: #### B MP3, HEMDF #### [facility] [address], [place] Bacteria LM.HPF (Urine sed) [#/Area] Negative Normal Negative [facility] Comment on above: Result Comment: . Performed By: #### B MP3, HEMDF #### [place] [address] [address] [place], [place] Bilirubin,Urine Negative Normal Negative [facility] Comment on above: Result Comment: . Performed By: #### B MP3, HEMDF #### [place] [address] [address] [place], [place] Cast, Hyaline Negative Normal Negative [facility] Comment on above: Result Comment: . Performed By: #### B MP3, HEMDF #### [place] [address] [address] [place], [place] Color (U) Yellow Normal Lt. Yellow [facility] Comment on above: Result Comment: . Performed By: #### B MP3, HEMDF #### [place] [address] [address] [place], [place] Glucose Ql (U) Normal Normal Normal (<70) [facility] Comment on above: Result Comment: . Performed By: #### B MP3, HEMDF #### [place] [address] [address] [place], [place] Ketone,Urine Negative Normal Negative [facility] Comment on above: Result Comment: . Performed By: #### B MP3, HEMDF #### [place] [address] [address] [place], [place] Leukocytes,Urine Negative Normal Negative [facility] Comment on above: Result Comment: . Performed By: #### B MP3, HEMDF #### [facility] [address] [place], [place] Nitrites,Urine Negative Normal Negative [facility] Comment on above: Result Comment: . Performed By: #### B MP3, HEMDF #### [facility] [address] [place], [place] Occult Blood,Urine Negative Normal Negative [facility] Comment on above: Result Comment: . Performed By: #### B MP3, HEMDF #### [facility] [address], [place] pH,Urine 5.5 Normal 5.0-8.0 [facility] Comment on above: Result Comment: . Performed By: #### B MP3, HEMDF #### [address] [place] [address] [address] [place], [place] Protein (U) [Mass/Vol] 10 mg/dL Abnormal Negative [facility] Comment on above: Result Comment: . Performed By: #### B MP3, HEMDF #### [facility] [address] [place], [place] RBC, Urine 0 - 2 Normal 0-2 [facility] Comment on above: Result Comment: . Performed By: #### B MP3, HEMDF #### [place] [address] [address] [place], [place] Specific [place],Urine 1.016 Normal 1.005 - 1.030 [facility] Comment on above: Result Comment: . Performed By: #### B MP3, HEMDF #### [facility] [address] [place], [place] Squamous Epithelial 0 - 2 Normal 3-5 [facility] Comment on above: Result Comment: . Performed By: #### B MP3, HEMDF #### [facility] [address] [place], [place] Urobilinogen,Urine Normal Normal Normal (0-1) [facility] Comment on above: Result Comment: . Performed By: #### B MP3, HEMDF #### [address] [place] [place] [address] WBC, Urine 0 - 2 Normal 0-5 [facility] Comment on above: Result Comment: . Performed By: #### B MP3, HEMDF #### [facility] [address] [place] [address] Creatinine, Ur Randomon 08-28 Creatinine, Ur Random 91.7 mg/dL Normal No Range [facility] Comment on above: Performed By: #### B MP3, HEMDF #### [facility] [address] [place] [address] EKG 12 Leadon 09-12-2020 [facility], [facility] Incoming Cardiology Results From [facility] - 09/12/2020 10:08 AM EDT [facility] Test Date: 2020-09-12 Pat Name: Amaury Blank Department: 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 Anterior Q waves, possibly due to LVH Compared to ECG 09/11/2020 21:10:15 2:1 AV block now present Possible ischemia no longer present Prolonged QT interval no longer present Electronically Signed On 09-12-2020 10:07:34 EDT by [employer] Work Phone: [facility] Test Date: 2020-09-11 Pat Name: Amaury Blank Department: 1A Room: 24 Gender: M Cow Buyer: : 1940 Requested By: OrangeSlyce Order Number: [id number] Reading MD: Jason Booker Measurements Intervals [place] Rate: 107 P: 109 [place]: 149 QRS: -54 QRSD: 101 T: 108 QT: 445 QTc: 594 Interpretive Statements Sinus tachycardia Inferior st depression. consider ischemia. Repol abnrm suggests ischemia, diffuse leads Prolonged QT interval Electronically Signed On 09-12-2020 9:57:55 EDT by [employer] Work Phone: [facility], [facility] Incoming Cardiology Results From [facility] - 09/12/2020 9:58 AM EDT [facility] Test Date: 2020-09-11 Pat Name: Amaury Blank Department: [facility] Room: 24 Gender: M Cow Buyer: : 1940 Requested By: [employer]A [employer] Order Number: [id number] Reading MD: Jason Booker Measurements Intervals [place] Rate: 107 P: 109 [place]: 149 QRS: -54 QRSD: 101 T: 108 QT: 445 QTc: 594 Interpretive Statements Sinus tachycardia Inferior st depression. consider ischemia. Repol abnrm suggests ischemia, diffuse leads Prolonged QT interval Electronically Signed On 09-12-2020 9:57:55 EDT by [employer] Work Phone: Hemogram w/ [employer] 09-12 Abs Baso Cnt 0.0 10*3/uL Normal 0.0-0.2 [facility] Comment on above: Performed By: #### B MP3, HEMDF #### [facility] [address], [place] Abs Neutrophile Cnt 7.7 10*3/uL High 1.8-7.0 [facility] Comment on above: Performed By: #### B MP3, HEMDF #### [facility] [address], [place] Basophils/100 WBC (Bld) 0.1 % Normal 0.0-2.0 S [facility] Comment on above: Performed By: #### B MP3, HEMDF #### [facility] [address], [place] Eosinophils (Bld) [#/Vol] 0.0 10*3/uL Normal 0.0-0.5 [facility] Comment on above: Performed By: #### B MP3, HEMDF #### [facility] [address], [place] Eosinophils/100 WBC (Bld) 0.0 % Low 1.0-6.0 [facility] Comment on above: Performed By: #### B MP3, HEMDF #### [facility] [address], [place] Erythrocyte distribution width (RBC) [Ratio] 14.3 % Normal 11.5-14.5 [facility] Comment on above: Performed By: #### B MP3, HEMDF #### [facility] [address], [place] Granulocytes/100 WBC (Bld) 85.2 % High 40.0-80.0 [facility] Comment on above: Performed By: #### B MP3, HEMDF #### [facility] [address], [place] Hematocrit (Bld) [Volume fraction] 33.2 % Low 40.0-52.0 [facility] Comment on above: Performed By: #### B MP3, HEMDF #### [facility] [address] [place], [place] Hemoglobin (Bld) [Mass/Vol] 11.0 g/dL Low 13.0-18.0 [facility] Comment on above: Performed By: #### B MP3, HEMDF #### [address] [place] [address] [address] [place], [place] Lymphocytes (Bld) [#/Vol] 0.5 10*3/uL Low 1.0-4.3 [facility] Comment on above: Performed By: #### B MP3, HEMDF #### [address] [place] [place], [place] Lymphocytes/100 WBC (Bld) 5.0 % Low 20.0-40.0 [facility] Comment on above: Performed By: #### B MP3, HEMDF #### [address] [place] [address] [place], [place] MCH (RBC) [Entitic mass] 33.4 pg Normal 26.0-34.0 [facility] Comment on above: Performed By: #### B MP3, HEMDF #### [address] [place] [address] [place], [place] MCHC 33.1 % Normal 32.0-36.0 [facility] Comment on above: Performed By: #### B MP3, HEMDF #### [address] [place] [address] [address], [place] MCV (RBC) [Entitic vol] 100.9 fL High 80.0-98.0 S [facility] Comment on above: Performed By: #### B MP3, HEMDF #### [place] [address] [place], [place] Monocytes (Bld) [#/Vol] 0.9 10*3/uL High 0.0-0.8 [facility] Comment on above: Performed By: #### B MP3, HEMDF #### [place] [address] [address], [place] Monocytes/100 WBC (Bld) 9.7 % Normal 2.0-10.0 S [facility] Comment on above: Performed By: #### B MP3, HEMDF #### [place] [address] [place], [place] Platelet mean volume (Bld) [Entitic vol] 8.7 fL Normal 7.4-10.4 [facility] Comment on above: Performed By: #### B MP3, HEMDF #### [facility] [address], [place] Platelets (Bld) [#/Vol] 137 10*3/uL Low 140-440 [facility] Comment on above: Performed By: #### B MP3, HEMDF #### [facility] [address] [place], [place] RBC (Bld) [#/Vol] 3.29 10*6/uL Low 4.40-5.90 [facility] Comment on above: Performed By: #### B MP3, HEMDF #### [address] [place] [address] [place], [place] WBC (Bld) [#/Vol] 9.1 10*3/uL Normal 3.6-10.7 [facility] Comment on above: Performed By: #### B MP3, HEMDF #### [facility] [address], [place] LEGIONELLA AG, URINEon 09-12 LEGIONELLA AG, URINE LEGIONELLA AG, URIN E --> Status: F Legionella antigen NOT DETECTED. Normal [facility] Comment on above: Performed By: #### C /TBC #### [place] [address] [place], [place] Lactic Acidon 09-12-2020 Lactate [Moles/Vol] 1.4 mmol/L Normal 0.7-2.0 [facility] Comment on above: Performed By: #### C /TBC #### [place] [address] [place], [place] Legionella Antigen, Urineon 09-12-2020 LEGIONELLA ANTIGEN Legionella antigen N OT DETECTED. [facility] Work Phone: MRSA by PCRon 09-12-2020 Staph Aureus Sc No S. aureus detecte d. Negative nasal MRSA PCR has a high negative predictive value for MRSA pneumonia. Consider stopping vancomycin if no other clinical indication. Contact Antimicrobial Stewardship for further recommendations. The analytical performance characteristics of this assay have been determined by [employer] in accordance with CLIA regulations. The modifications have not been cleared or approved by the U. S. Food and Drug Administration; however, the FDA has determined that such clearance or approval is not necessary. [facility] Work Phone: Test Performed by [facility], [address] [place] [id number] [facility] Work Phone: Magnesiumon 09-12-2020 Magnesium [Mass/Vol] 2.1 mg/dL Normal 1.6-2.3 [facility] Comment on above: Performed By: #### B MP3, HEMDF #### [address] Otheron 09-12-2020 Test Performed by [facility], [address] [place] [id number] [place], [place] [id number] Work Phone: Test Performed by [facility], [address] [place] [id number] [place], [place] [id number] Work Phone: Phosphoruson 09-12-2020 Phosphate [Mass/Vol] 4.5 mg/dL Normal 2.5-4.5 [facility] Comment on above: Performed By: #### B MP3, HEMDF #### [address] Procalcitoninon 09-12-2020 Interpretation See Below Normal [facility] Comment on above: Result Comment: PCT <0.50 = Low risk of severe sepsis and/or septic shock. PCT >2.00 = High risk of severe sepsis and/or septic shock. Performed By: #### B MP3, HEMDF #### [address] Procalcitonin 0.81 ng/mL Abnormal <0.10 [facility] Comment on above: Performed By: #### C /TBC #### [address] Interpretation and review of laboratory results Abnormal [facility] Work Phone: Procalcitonin 0.81 ng/mL Abnormal <0.10 [facility] Work Phone: Sodium [Moles/Vol] See Below [facility] Work Phone: Comment on above: PCT <0.50 = Low risk of severe sepsis and/or septic shock. PCT >2.00 = High risk of severe sepsis and/or septic shock. Test Performed by [facility], [facility] [place] [address] [facility] Work Phone: Protime AND APTTon 1 aPTT Coag (Bld) [Time] 34.6 s High 20.0-30.5 [facility] [email or web address] [facility] Comment on above: Result Comment: NOTE : The therapeutic time for Heparin anticoagulation, based on Xa activity inhibition, is an APTT of 46-80 seconds. Performed By: #### B MP3, HEMDF #### [facility] [email or web address] [place] [address] [place] [address] INR 1.3 High 0.9-1.1 [facility] Comment on above: Result Comment: Abhishek mmended Anticoagulant Therapy: SEE BELOW ----- INR of 2.0 - 3.0 : - Prophylaxis of Venous Thrombosis (high-risk surgery) - Treatment of Venous Thrombosis - Treatment of Pulmonary Embolism (Includes tissue heart valves, Acute Myocardial Infarction to prevent systemic embolism, Valvular Heart Disease, and Atrial Fibrillation) ----- INR of 2.5 - 3.5 : - Mechanical Prosthetic Valves (high risk) - If oral anticoagulant therapy is used to prevent Myocardial Infarction Performed By: #### B MP3, HEMDF #### [facility] [email or web address] [facility] [address] [place] [address] PT Coag (PPP) [Time] 13.8 s High 9.0-12.0 [facility] Comment on above: Result Comment: . Performed By: #### B MP3, HEMDF #### [facility] [email or web address] [facility] [address] [place] [address] Protime/INR & PTTon 09-13-19 21 aPTT Coag (Bld) [Time] 34.6 s High 20.0 - 30.5 s [facility] Work Phone: Comment on above: NOTE: The therapeuti c time for Heparin anticoagulation, based on Xa activity inhibition, is an APTT of 46-80 seconds. INR Coag (PPP) [Relative time] 1.3 {INR} [facility] [employer] Work Phone: Comment on above: Recommended Anticoag ulant Therapy: SEE BELOW ----- INR of 2.0 - 3.0 : - Prophylaxis of Venous Thrombosis (high-risk surgery) - Treatment of Venous Thrombosis - Treatment of Pulmonary Embolism (Includes tissue heart valves, Acute Myocardial Infarction to prevent systemic embolism, Valvular Heart Disease, and Atrial Fibrillation) ----- INR of 2.5 - 3.5 : - Mechanical Prosthetic Valves (high risk) - If oral anticoagulant therapy is used to prevent Myocardial Infarction Interpretation and review of laboratory results Abnormal [employer] Work Phone: PT Coag (PPP) [Time] 13.8 s High 9.0 - 1 2.0 s [employer] Work Phone: Comment on above: . Test Performed by [facility], [address] [place] [address] [employer] Work Phone: SODIUM, URINE, RANDOMon 08-28 Interpretation and review of laboratory results Abnormal [facility] Work Phone: Sodium (U) [Moles/Vol] 10 mmol/L Low 30 - 90 mmol/L [facility] Work Phone: STREP PNEUMO ANTIGEN, URINEo n 09-12-2020 STREP PNEUMO ANTIGEN, URINE STREP PNEUMO ANTIGEN, URINE --> Status: F Strep pneumo antigen NOT DETECTED. Normal [facility] Comment on above: Performed By: #### C /TBC #### [address] [place] [phone] STREP PNEUMONIAE ANTIGENon 0 09-12-2020 STREP PNEUMONIAE ANTIGEN, URINE Strep pneumo antigen NOT DETECTED. [employer] Work Phone: Sed Rateon 09-12-2020 Sed Rate 25 mm/h High 0-10 [facility] Comment on above: Performed By: #### B MP3, HEMDF #### [address] [place] [phone] Sedimentation Rateon 021 Interpretation and review of laboratory results Abnormal [facility] Work Phone: Sed Rate 25 mm/h High 0 - 10 mm/h [facility] Work Phone: Test Performed by [facility], [address] [place] [address] [facility] Work Phone: Sodium, Ur Randomon 09-13-19 21 Sodium [Moles/Vol] 10 mmol/L Low 30-90 [facility] Comment on above: Performed By: #### B MP3, HEMDF #### [facility] [address] [place] [address] Staph Aureus Complete Nasalo n 09-12-2020 Staph Aureus Complete Nasal Staph Screen --> Status: F No S. aureus detected. Negative nasal MRSA PCR has a high negative predictive value for MRSA pneumonia. Consider stopping vancomycin if no other clinical indication. Contact Antimicrobial Stewardship for further recommendations. The analytical performance characteristics of this assay have been determined by [employer] in accordance with CLIA regulations. The modifications have not been cleared or approved by the U. S. Food and Drug Administration; however, the FDA has determined that such clearance or approval is not necessary. Negative nasal MRSA PCR has a high negative predictive value for MRSA pneumonia. Consider stopping vancomycin if no other clinical indication. Contact Antimicrobial Stewardship for further recommendations. The analytical performance characteristics of this assay have been determined by [employer] in accordance with CLIA regulations. The modifications have not been cleared or approved by the U. S. Food and Drug Administration; however, the FDA has determined that such clearance or approval is not necessary. Normal [facility] Comment on above: Performed By: #### S APCR #### [facility] [address] [place] [address] UREA NITROGEN, URINEon 09-12 Urea Nitrogen, Random Urine 1202 mg/dL No Range [facility] Work Phone: US RETROPERITONEAL LIMITEDon 09-12-2020 Patient Name: AMAURY DAVIS Ultrasound ACCESSION EXAM DATE/TIME PROCEDURE ORDERING PROVIDER [id number] 09/12/2020 08:05 EDT US Retroperitoneal PHANGUREH, DO, Limited ANNIKAERPARTBORA DOWNS CPT code 19190 Reason For Exam (US Retroperitoneal Limited) MYRON on CKD Report CLINICAL INFORMATION: Renal insufficiency. Ultrasound of the kidneys and bladder is provided. There are no comparison studies. FINDINGS: The right kidney measures 11.3 x 4.5 x 4.5 cm. The left kidney measures 12.8 x 4.6 x 5.7 cm. Multiple renal cysts are noted bilaterally. These range up to approximately 4 cm in greatest diameter. No worrisome solid lesions are appreciated. There is no evidence of hydronephrosis or hydroureter. Images of the bladder are normal. IMPRESSION: 1. Bilateral renal cysts. 2. There is no evidence of hydronephrosis or hydroureter. Report Dictated on --- Final --- Dictated: 09/12/2020 8:30 am Dictating Physician: MD AGUILAR JEFFREY Signed Date and Time: 09/12/2020 8:31 am Signed by: MD AGUILAR JEFFREY Transcribed Date and Time: 09/12/2020 8:30 [facility] Work Phone: [facility], [facility] Incoming Rad[facility] Results From [facility] - 09/12/2020 8:32 AM EDT Patient [facility]: [id number] ACCESSION EXAM DATE/TIME PROCEDURE ORDERING PROVIDER [id number] 09/12/2020 08:05 EDT US Retroperitoneal PHANGUREH, DO, Limited MARIA ELENA DOWNS CPT code 94999 Reason For Exam (US Retroperitoneal Limited) MYRON on CKD Report CLINICAL INFORMATION: Renal insufficiency. Ultrasound of the kidneys and bladder is provided. There are no comparison studies. FINDINGS: The right kidney measures 11.3 x 4.5 x 4.5 cm. The left kidney measures 12.8 x 4.6 x 5.7 cm. Multiple renal cysts are noted bilaterally. These range up to approximately 4 cm in greatest diameter. No worrisome solid lesions are appreciated. There is no evidence of hydronephrosis or hydroureter. Images of the bladder are normal. IMPRESSION: 1. Bilateral renal cysts. 2. There is no evidence of hydronephrosis or hydroureter. Report Dictated on --- Final --- Dictated: 09/12/2020 8:30 am Dictating Physician: MD AGUILAR JEFFREY Signed Date and Time: 09/12/2020 8:31 am Signed by: MD AGUILAR JEFFREY Transcribed Date and Time: 09/12/2020 8:30 [facility] Work Phone: US Retroperitoneal Limitedon 09-12-2020 US Retroperitoneal Limited Patient Name: MAAURY BLANK Ultrasound ACCESSION EXAM DATE/TIME PROCEDURE ORDERING PROVIDER [id number] 09/12/2020 08:05 EDT US Retroperitoneal PHANGUREH, DO, Limited INDERPARTAP DOWNS CPT code 38675 Reason For Exam (US Retroperitoneal Limited) MYRON on CKD Report CLINICAL INFORMATION: Renal insufficiency. Ultrasound of the kidneys and bladder is provided. There are no comparison studies. FINDINGS: The right kidney measures 11.3 x 4.5 x 4.5 cm. The left kidney measures 12.8 x 4.6 x 5.7 cm. Multiple renal cysts are noted bilaterally. These range up to approximately 4 cm in greatest diameter. No worrisome solid lesions are appreciated. There is no evidence of hydronephrosis or hydroureter. Images of the bladder are normal. IMPRESSION: 1. Bilateral renal cysts. 2. There is no evidence of hydronephrosis or hydroureter. Report Dictated on Final Dictated: 09/12/2020 8:30 am Dictating Physician: MD AGUILAR JEFFREY Signed Date and Time: 09/12/2020 8:31 am Signed by: MD AGUILAR JEFFREY Transcribed Date and Time: 09/12/2020 8:30 Normal [facility] Urea Nitrogen,Ur Randomon Urea nitrogen [Mass/Vol] 1202 mg/dL Normal No Range [facility] Comment on above: Performed By: #### B MP3, HEMDF #### [address] [address] Urinalysison 09-12-2020 Appearance (U) Clear Clear NA [facility] Work Phone: Comment on above: . Bacteria, UA Negative Negative /[HPF] [facility] Work Phone: Comment on above: . Bilirubin Urine Negative Negative mg/dL [facility] Work Phone: Comment on above: . Color (U) Yellow Lt. Yellow NA [facility] Work Phone: Comment on above: . Glucose, Ur Normal Normal (<70) mg/dL [facility] Work Phone: Comment on above: . Hyaline Casts, UA Negative Negative /[LPF] [facility] Work Phone: Comment on above: . Interpretation and review of laboratory results Abnormal [facility] Work Phone: Ketones Ql (U) Negative Negative mg/dL [facility] Work Phone: Comment on above: . LEUKOCYTES, UA Negative Negative Khurram/uL [facility] Work Phone: Comment on above: . Nitrite, Urine Negative Negative NA [facility] Work Phone: Comment on above: . Occult Blood,Urine Negative Negative mg/dL [facility] Work Phone: Comment on above: . pH (U) 5.5 [pH] [facility] Work Phone: Comment on above: . Protein (U) [Mass/Vol] 10 mg/dL Abnormal Negative [facility] Work Phone: Comment on above: . RBC (U) [#/Vol] 0-2 0 - 2 /[HPF] [facility] Work Phone: Comment on above: . Specific [place], Urine 1.016 S [facility] Work Phone: Comment on above: . Squam Epithel, UA 0-2 3 - 5 /[HPF] [facility] Work Phone: Comment on above: . Urobilinogen, Urine Normal Normal (0-1) mg/dL [facility] Work Phone: Comment on above: . WBC, UA 0-2 0 - 5 /[HPF] [facility] Work Phone: Comment on above: . Test Performed by [facility], [address] [place] [address] [facility] Work Phone: XR CHEST 1 VWon 09-12-2020 [facility], [facility] Incoming Radiology Results From [facility] - 09/12/2020 2:33 PM EDT Patient Name: AMAURY BLANK Diagnostic Radiology ACCESSION EXAM DATE/TIME PROCEDURE ORDERING PROVIDER [id number] 09/12/2020 14:33 EDT CR Chest 1 View Frontal [place] LIZ SARAH CPT code 08488 Reason For Exam (CR Chest 1 View Frontal) Pigtail catheter placement Report CHEST (Frontal View) History:, Pigtail catheter placement, follow-up Comparison: 09/12/2020, 7:44 AM Findings: Frontal chest view shows small residual right pleural effusion with basilar atelectasis/infiltrate, all have decreased compared to the exam done earlier today. Tip of pigtail catheter overlies the right costophrenic angle. Compared to the CT of 09/11/2020, the previously described spiculated cavitary nodular lesion in the left lower lobe is not clearly visualized but there is ill-defined opacity/infiltrate more superiorly in the left midlung all require continued evaluation. The heart is borderline in size with median sternotomy and valve prosthesis noted. There is no mediastinal widening, pneumothorax, or other significant change from today's earlier radiograph. Report Dictated on --- Final --- Dictated: 09/12/2020 1:39 pm Dictating Physician: MD RENEE AHMAD Signed Date and Time: 09/12/2020 1:45 pm Signed by: MD RENEE AHMAD Transcribed Date and Time: 09/12/2020 1:39 [facility] Work Phone: Patient Name: AMAURY DAVIS Diagnostic Radiology ACCESSION EXAM DATE/TIME PROCEDURE ORDERING PROVIDER [id number] 09/12/2020 14:33 EDT CR Chest 1 View Frontal [place] LIZ SARAH CPT code 65974 Reason For Exam (CR Chest 1 View Frontal) Pigtail catheter placement Report CHEST (Frontal View) History:, Pigtail catheter placement, follow-up Comparison: 09/12/2020, 7:44 AM Findings: Frontal chest view shows small residual right pleural effusion with basilar atelectasis/infiltrate, all have decreased compared to the exam done earlier today. Tip of pigtail catheter overlies the right costophrenic angle. Compared to the CT of 09/11/2020, the previously described spiculated cavitary nodular lesion in the left lower lobe is not clearly visualized but there is ill-defined opacity/infiltrate more superiorly in the left midlung all require continued evaluation. The heart is borderline in size with median sternotomy and valve prosthesis noted. There is no mediastinal widening, pneumothorax, or other significant change from today's earlier radiograph. Report Dictated on --- Final --- Dictated: 09/12/2020 1:39 pm Dictating Physician: MD RENEE AHMAD Signed Date and Time: 09/12/2020 1:45 pm Signed by: MD RENEE AHMAD Transcribed Date and Time: 09/12/2020 1:39 [facility] Work Phone: XR CHEST PORTABLEon 09-13-19 [id number] Radiology ACCESSION EXAM DATE/TIME PROCEDURE ORDERING PROVIDER [id number] 09/12/2020 07:47 EDT CR Chest Portable [place] LIZ SARAH CPT code 05564 Reason For Exam (CR Chest Portable) Dyspnea Report CLINICAL INFORMATION: Shortness of breath. Portable view of the chest at 0745 hours is provided without comparison. 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 The cardiac silhouette and mediastinum are otherwise normal. There is a large right lower lobe effusion. This results in atelectasis in the right lung base. IMPRESSION: 1. No postoperative changes (CABG). 2. Large right-sided pleural effusion. Report Dictated on --- Final --- Dictated: 09/12/2020 8:20 am Dictating Physician: MD AGUILAR JEFFREY Signed Date and Time: 09/12/2020 8:26 am Signed by: MD AGUILAR JEFFREY Transcribed Date and Time: 09/12/2020 8:20 [facility] Work Phone: [facility], [facility] Incoming Radiology Results From [facility] - 09/12/2020 8:28 AM EDT Patient Name: AMAURY BLANK Diagnostic Radiology ACCESSION EXAM DATE/TIME PROCEDURE ORDERING PROVIDER [id number] 09/12/2020 07:47 EDT CR Chest Portable [place] LIZ SARAH CPT code 68114 Reason For Exam (CR Chest Portable) Dyspnea Report CLINICAL INFORMATION: Shortness of breath. Portable view of the chest at 0745 hours is provided without comparison. 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 The cardiac silhouette and mediastinum are otherwise normal. There is a large right lower lobe effusion. This results in atelectasis in the right lung base. IMPRESSION: 1. No postoperative changes (CABG). 2. Large right-sided pleural effusion. Report Dictated on --- Final --- Dictated: 09/12/2020 8:20 am Dictating Physician: MD AGUILAR JEFFREY Signed Date and Time: 09/12/2020 8:26 am Signed by: MD AGUILAR JEFFREY Transcribed Date and Time: 09/12/2020 8:20 [facility] Work Phone: CBC Auto Differentialon 08-28 Absolute Baso # 0.0 10*3/uL 0.0 - 0.2 10*3/uL [facility] Work Phone: Absolute Neut # 7.7 10*3/uL High 1.8 - 7.0 10*3/uL [facility] Work Phone: Basophils/100 WBC (Bld) 0.1 % 0.0 - 2.0 % [facility] Work Phone: Eosinophils (Bld) [#/Vol] 0.0 10*3/uL 0.0 - 0.5 10*3/uL [facility] Work Phone: [phone] Eosinophils/100 WBC (Bld) 0.0 % Low 1.0 - 6.0 % [facility] Work Phone: [phone] Erythrocyte distribution width (RBC) [Ratio] 14.3 % 11.5 - 14.5 % [facility] Work Phone: [phone] Granulocytes/100 WBC (Bld) 85.2 % High 40.0 - 80.0 % [facility] Work Phone: [phone] Hematocrit (Bld) [Volume fraction] 33.2 % Low 40.0 - 52.0 % [employer] Work Phone: [phone] Hemoglobin (Bld) [Mass/Vol] 11.0 g/dL Low 13.0 - 18.0 g/dL [employer] Work Phone: [phone] Interpretation and review of laboratory results Abnormal [employer] Work Phone: [phone] Lymphocytes (Bld) [#/Vol] 0.5 10*3/uL Low 1.0 - 4.3 10*3/uL [facility] Work Phone: [phone] Lymphocytes/100 WBC (Bld) 5.0 % Low 20.0 - 40.0 % [employer] Work Phone: [phone] MCH (RBC) [Entitic mass] 33.4 pg 26.0 - 34.0 pg [facility] Work Phone: [phone] MCHC (RBC) [Mass/Vol] 33.1 % 32.0 - 36.0 % [employer] Work Phone: [phone] MCV (RBC) [Entitic vol] 100.9 fL High 80.0 - 98.0 fL [facility] Work Phone: [phone] Monocytes (Bld) [#/Vol] 0.9 10*3/uL High 0.0 - 0.8 10*3/uL [facility] Work Phone: [phone] Monocytes/100 WBC (Bld) 9.7 % 2.0 - 10.0 % [facility] Work Phone: [phone] Platelet mean volume (Bld) [Entitic vol] 8.7 fL 7.4 - 10.4 fL [facility] Work Phone: [phone] Platelets (Bld) [#/Vol] 137 10*3/uL Low 140 - 440 10*3/uL [facility] Work Phone: [phone] RBC (Bld) [#/Vol] 3.29 10*6/uL Low 4.40 - 5.90 10*6/uL [facility] Work Phone: [phone] WBC (Bld) [#/Vol] 9.1 10*3/uL 3.6 - 10.7 10*3/uL [facility] Work Phone: [phone] Test Performed by [address] [address] [facility] Work Phone: [phone] Comprehensive Metabolic Pane joanne 09-11-2020 Albumin [Mass/Vol] 2.8 g/dL Low 3.5 - 5.0 g/dL [facility] Work Phone: [phone] ALP [Catalytic activity/Vol] 147 U/L High 38 - 126 U/L [facility] Work Phone: [phone] ALT [Catalytic activity/Vol] 24 U/L 0 - 49 U/L [facility] Work Phone: [phone] Comment on above: The ALT test is perf ormed by an updated assay method. Please note that the reference intervals have been changed and are now sex specific. Anion gap [Moles/Vol] 9 mmol/L 3 - 13 mmol/L [facility] Work Phone: [phone] AST [Catalytic activity/Vol] 39 U/L 15 - 46 U/L [facility] Work Phone: [phone] Bilirubin Ql (U) 1.2 mg/dL 0.2 - 1.3 mg/dL [facility] Work Phone: [phone] Calcium [Mass/Vol] 9.1 mg/dL 8.4 - 10. 4 mg/dL [facility] Work Phone: [phone] Chloride [Moles/Vol] 110 mmol/L High 98 - 10 7 mmol/L [facility] Work Phone: CO2 [Moles/Vol] 20 mmol/L Low 22 - 30 mmol/L [facility] Work Phone: Creatinine [Mass/Vol] 2.18 mg/dL High 0.52 - 1.25 mg/dL [facility] Work Phone: EGFR IF NonAfrican Cambodian 27.8 mL/min Abnormal >60 [facility] Work Phone: Comment on above: KDIGO guidelines pro vide the following GFR categories: Stage GFR(ml/min/1.73 m2) Terms G1 >=90 Normal or high G2 60-89 Mildly decreased* G3a 45-59 Mildly to moderately decreased G3b 30-44 Moderately to severely decreased G4 15-29 Severely decreased G5 <15 Kidney failure *Relative to young adult level. In the absence of evidence of kidney damage, neither GFR category G1 nor G2 fulfill the criteria for CKD. The CKD-EPI equation is validated in individuals 18 years of age and older. Currently the best equation for estimating glomerular filtration rate (GFR) from serum creatinine in children is the Bedside Bocanegra equation. It is less accurate in patients with extremes of muscle mass, restriction of dietary protein, ingestion of creatine, extra-renal metabolism of creatinine, or treatment with medications that affect renal tubular creatinine secretion. GFR/1.73 sq M predicted among blacks MDRD (S/P/Bld) [Vol rate/Area] 32.2 mL/min/{1.73_m2} Abnormal >60 [facility] Work Phone: Glucose [Mass/Vol] 117 mg/dL High 70 - 100 mg/dL [facility] Work Phone: Interpretation and review of laboratory results Abnormal [employer] Work Phone: Potassium [Moles/Vol] 3.5 mmol/L 3.5 - 5.1 mmol/L [facility] Work Phone: Protein [Mass/Vol] 5.4 g/dL Low 6.3 - 8.2 g/dL [facility] Work Phone: Sodium [Moles/Vol] 140 mmol/L 135 - 145 mmol/L [facility] Work Phone: Urea nitrogen [Mass/Vol] 77 mg/dL High 7 - 20 mg/dL [facility] Work Phone: Lactic Acid, Plasmaon 2020 Lactate [Moles/Vol] 1.4 mmol/L 0.7 - 2. 0 mmol/L [facility] Work Phone: Test Performed by [facility], [address] [place] [address] [facility] Work Phone: Magnesiumon 3 Magnesium [Mass/Vol] 2.1 mg/dL 1.6 - 2 .3 mg/dL [facility] Work Phone: Otheron 8 Test Performed by [facility], [address] [place] [address] [facility] Work Phone: Phosphoruson 9 Phosphate [Mass/Vol] 4.5 mg/dL 2.5 - 4 .5 mg/dL [facility] Work Phone: Procalcitoninon 09-11-2020 Interpretation See Below Normal [facility] Comment on above: Result Comment: PCT <0.50 = Low risk of severe sepsis and/or septic shock. PCT >2.00 = High risk of severe sepsis and/or septic shock. Performed By: #### C /TBC #### [address] [address] Vital Signs Date Time Vital Sign Value Performing Clinician Facility 12-27-2024 12:44-0400 Body temperature 97.8 [degF] Dr. Rosa Maria Santacruz MD Work Phone: [facility] 12-27-2024 12:44-0400 Diastolic blood pressure 60 mm[Hg] Dr. Rosa Maria Santacruz MD Work Phone: [facility] 12-27-2024 12:44-0400 Heart rate 68 /min Dr. Rosa Maria Santacruz MD Work Phone: [facility] 12-27-2024 12:44-0400 Respiratory rate 18 /min Dr. Rosa Maria Santacruz MD Work Phone: [facility] 12-27-2024 12:44-0400 SaO2% (BldA) [Mass fraction] 94 % Dr. Rosa Maria Santacruz MD Work Phone: [phone] [place] [address] 12-27-2024 12:44-0400 Systolic blood pressure 154 mm[Hg] Dr. Rosa Maria Santacruz MD Work Phone: [phone] [place] [address] 12-27-2024 09:29-0400 Body height 177.[address] Rosa Maria Santacruz MD Work Phone: [phone] [place] [address] 12-27-2024 09:29-0400 Body mass index (BMI) [Ratio] 24.3 kg/m2 Dr. Rosa Maria Santacruz MD Work Phone: [phone] [place] [address] 12-27-2024 09:29-0400 Body weight [address] Rosa Maria Santacruz MD Work Phone: [phone] [place] [address] 12-10-2024 13:18-0400 Body height 177.[address] Rosa Maria Santacruz MD Work Phone: [phone] [place] [address] 12-10-2024 13:18-0400 Body mass index (BMI) [Ratio] 23.3 kg/m2 Dr. Rosa Maria Santacruz MD Work Phone: [phone] [place] [address] 12-10-2024 13:18-0400 Body weight 73.[address] Rosa Maria Santacruz MD Work Phone: [phone] [place] [address] 12-10-2024 13:18-0400 Diastolic blood pressure 75 mm[Hg] Dr. Rosa Maria Santacruz MD Work Phone: [phone] [place] [address] 12-10-2024 13:18-0400 Heart rate 84 /min Dr. Rosa Maria Santacruz MD Work Phone: [phone] [place] [address] 12-10-2024 13:18-0400 Respiratory rate 17 /min Dr. Rosa Maria Santacruz MD Work Phone: [phone] [place] [address] 12-10-2024 13:18-0400 SaO2% (BldA) [Mass fraction] 97 % Dr. Rosa Maria Santacruz MD Work Phone: [phone] [place] [address] 12-10-2024 13:18-0400 Systolic blood pressure 161 mm[Hg] Dr. Rosa Maria Santacruz MD Work Phone: [phone] [place] [address] 11-18-2024 14:14-0400 Diastolic blood pressure 60 mm[Hg] Dr. Rosa Maria Santacruz MD Work Phone: [phone] [place] [address] 11-18-2024 14:14-0400 Heart rate 70 /min Dr. Rosa Maria Santacruz MD Work Phone: 5(079)450-986142 [place] [address] 11-18-2024 14:14-0400 Systolic blood pressure 145 mm[Hg] Dr. Rosa Maria Santacruz MD Work Phone: 2(689)066-249408 [place] [address] 11-18-2024 10:04-0400 Body height 177.[address] Rosa Maria Santacruz MD Work Phone: 3(443)788-983208 [place] [address] 11-18-2024 10:04-0400 Body mass index (BMI) [Ratio] 24.3 kg/m2 Dr. Rosa Maria Santacruz MD Work Phone: 7(444)974-452861 [address] 11-18-2024 10:04-0400 Body temperature 96.9 [degF] Dr. Rosa Maria Santacruz MD Work Phone: 4(959)826-107961 [address] 11-18-2024 10:04-0400 Body weight 77.[address] Rosa Maria Santacruz MD Work Phone: 8(315)307-898361 [address] 11-18-2024 10:04-0400 Respiratory rate 16 /min Dr. Rosa Maria Santacruz MD Work Phone: 7(740)860-920642 [place] [address] 11-18-2024 10:04-0400 SaO2% (BldA) [Mass fraction] 93 % Dr. Rosa Maria Santacruz MD Work Phone: [facility] 11-08-2024 22:16-0400 Body temperature 98 [degF] Dr. Rosa Maria Santacruz MD Work Phone: [facility] 11-08-2024 22:16-0400 Diastolic blood pressure 78 mm[Hg] Dr. Rosa Maria Santacruz MD Work Phone: [facility] 11-08-2024 22:16-0400 Heart rate 78 /min Dr. Rosa Maria Santacruz MD Work Phone: [facility] 11-08-2024 22:16-0400 Respiratory rate 18 /min Dr. Rosa Maria Santacruz MD Work Phone: 8(101)779-168608 [place] [address] 11-08-2024 22:16-0400 SaO2% (BldA) [Mass fraction] 99 % Dr. Rosa Maria Santacruz MD Work Phone: 4(926)677-984642 [place] [address] 11-08-2024 22:16-0400 Systolic blood pressure 122 mm[Hg] Dr. Rosa Maria Santacruz MD Work Phone: 2(278)796-378308 [place] [address] 11-08-2024 14:42-0400 Body height 177.[address] Rosa Maria Santacruz MD Work Phone: 5(650)708-241308 [place] [address] 11-08-2024 14:42-0400 Body mass index (BMI) [Ratio] 24.2 kg/m2 Dr. Rosa Maria Santacruz MD Work Phone: 1(614)863-145008 [place] [address] 11-08-2024 14:42-0400 Body weight 76.[address] Rosa Maria Santacruz MD Work Phone: 6(980)245-775708 [place] [address] 11-08-2024 13:35-0400 Body mass index (BMI) [Ratio] 24.1 kg/m2 Dr. Rosa Maria Santacruz MD Work Phone: 9(433)400-395408 [place] [address] 11-08-2024 13:35-0400 Body temperature 98 [degF] Dr. Rosa Maria Santacruz MD Work Phone: 4(708)680-460008 [place] [address] 11-08-2024 13:35-0400 Body weight 76.[address] Rosa Maria Santacruz MD Work Phone: 1(016)975-495208 [place] [address] 11-08-2024 13:35-0400 Diastolic blood pressure 70 mm[Hg] Dr. Rosa Maria Santacruz MD Work Phone: 4(197)050-705708 [place] [address] 11-08-2024 13:35-0400 Heart rate 67 /min Dr. Rosa Maria Santacruz MD Work Phone: [facility] 11-08-2024 13:35-0400 Respiratory rate 18 /min Dr. Rosa Maria Santacruz MD Work Phone: [facility] 11-08-2024 13:35-0400 SaO2% (BldA) [Mass fraction] 98 % Dr. Rosa Maria Santacruz MD Work Phone: [facility] 11-08-2024 13:35-0400 Systolic blood pressure 152 mm[Hg] Dr. Rosa Maria Santacruz MD Work Phone: [facility] 10-01-2024 12:59-0400 Body height 177.[address] Rosa Maria Santacruz MD Work Phone: [facility] 10-01-2024 12:59-0400 Body mass index (BMI) [Ratio] 24.3 kg/m2 Dr. Rosa Maria Santacruz MD Work Phone: [facility] 10-01-2024 12:59-0400 Body weight 77.[address] Rosa Maria Santacruz MD Work Phone: [facility] 10-01-2024 12:59-0400 Diastolic blood pressure 68 mm[Hg] Dr. Rosa Maria Santacruz MD Work Phone: [facility] 10-01-2024 12:59-0400 Heart rate 78 /min Dr. Rosa Maria Santacruz MD Work Phone: [facility] 10-01-2024 12:59-0400 Respiratory rate 18 /min Dr. Rosa Maria Santacruz MD Work Phone: [facility] 10-01-2024 12:59-0400 SaO2% (BldA) [Mass fraction] 96 % Dr. Rosa Maria Santacruz MD Work Phone: [facility] 10-01-2024 12:59-0400 Systolic blood pressure 114 mm[Hg] Dr. Rosa Maria Santacruz MD Work Phone: [facility] 11-10-2023 19:21-0400 Body temperature 98.1 [degF] Dr. Rosa Maria Santacruz Work Phone: [facility] 11-10-2023 19:21-0400 Diastolic blood pressure 71 mm[Hg] Dr. Rosa Maria Santacruz Work Phone: [facility] 11-10-2023 19:21-0400 Heart rate 80 /min Dr. Rosa aMria Santacruz Work Phone: [facility] 11-10-2023 19:21-0400 Respiratory rate 16 /min Dr. Rosa Maria Santacruz Work Phone: 2(702)062-622742 [place] [address] 11-10-2023 19:21-0400 SaO2% (BldA) [Mass fraction] 99 % Dr. Rosa Maria Santacruz Work Phone: 9(240)337-665408 [place] [address] 11-10-2023 19:21-0400 Systolic blood pressure 169 mm[Hg] Dr. Rosa Maria Santacruz Work Phone: 7(718)679-996242 [place] [address] 11-10-2023 17:48-0400 Body mass index (BMI) [Ratio] 24.3 kg/m2 Dr. Rosa Maria Santacruz Work Phone: 9(155)123-325061 [address] 11-10-2023 17:48-0400 Body weight 76.[address] Rosa Maria Santacruz Work Phone: 4(604)909-531808 [place] [address] 11-10-2023 16:31-0400 Body height 177.[address] Rosa Maria Santacruz Work Phone: 2(343)896-644042 [place] [address] 11-10-2023 14:17-0400 Body mass index (BMI) [Ratio] 24 kg/m2 Dr. Rosa Maria Santacruz Work Phone: [facility] 11-10-2023 14:17-0400 Body temperature 98.7 [degF] Dr. Rosa Maria Santacruz Work Phone: 6(502)661-681608 [place] [address] 11-10-2023 14:17-0400 Body weight 75.[address] Rosa Maria Santacruz Work Phone: 5(836)129-187442 [place] [address] 11-10-2023 14:17-0400 Diastolic blood pressure 70 mm[Hg] Dr. Rosa Maria Santacruz Work Phone: [facility] 11-10-2023 14:17-0400 Heart rate 56 /min Dr. Rosa Maria Santacruz Work Phone: [facility] 11-10-2023 14:17-0400 Respiratory rate 18 /min Dr. Rosa aMria Santacruz Work Phone: [facility] 11-10-2023 14:17-0400 SaO2% (BldA) [Mass fraction] 97 % Dr. Rosa Maria Santacruz Work Phone: [facility] 11-10-2023 14:17-0400 Systolic blood pressure 160 mm[Hg] Dr. Rosa Maria Santacruz Work Phone: [facility] 09-29-2023 11:31-0400 Body mass index (BMI) [Ratio] 24.7 kg/m2 Dr. Rosa Maria Santacruz Work Phone: [facility] 09-29-2023 11:31-0400 Body weight 78.[address] Rosa Maria Santacruz Work Phone: [facility] 09-29-2023 11:31-0400 Diastolic blood pressure 69 mm[Hg] Dr. Rosa Maria Santacruz Work Phone: [facility] 09-29-2023 11:31-0400 Heart rate 74 /min Dr. Rosa Maria Santacruz Work Phone: [facility] 09-29-2023 11:31-0400 Respiratory rate 18 /min Dr. Rosa Maria Santacruz Work Phone: [facility] 09-29-2023 11:31-0400 SaO2% (BldA) [Mass fraction] 98 % Dr. Rosa Maria Santacruz Work Phone: [facility] 09-29-2023 11:31-0400 Systolic blood pressure 158 mm[Hg] Dr. Rosa Maria Santacruz Work Phone: [facility] 09-10-2023 12:59-0400 Body temperature 96.7 [degF] Dr. Rosa Maria Santacruz Work Phone: [facility] 09-10-2023 12:59-0400 Diastolic blood pressure 65 mm[Hg] Dr. Rosa Maria Santacruz Work Phone: [facility] 09-10-2023 12:59-0400 Heart rate 79 /min Dr. Rosa Maria Santacruz Work Phone: [facility] 09-10-2023 12:59-0400 Respiratory rate 18 /min Dr. Rosa Maria Santacruz Work Phone: [facility] 09-10-2023 12:59-0400 Systolic blood pressure 153 mm[Hg] Dr. Rosa Maria Santacruz Work Phone: [facility] 09-03-2023 13:02-0500 Diastolic blood pressure 60 mm[Hg] Dr. Rosa Maria Santacruz Work Phone: [facility] 09-03-2023 13:02-0500 Heart rate 78 /min Dr. Rosa Maria Santacruz Work Phone: [facility] 09-03-2023 13:02-0500 Respiratory rate 18 /min Dr. Rosa Maria Santacruz Work Phone: [facility] 09-03-2023 13:02-0500 Systolic blood pressure 141 mm[Hg] Dr. Rosa Maria Santacruz Work Phone: [facility] 08-29-2023 00:25-0500 Body temperature 97.3 [degF] Dr. Rosa Maria Santacruz Work Phone: [facility] 08-29-2023 00:25-0500 Inhaled oxygen flow rate 2 L/min Dr. Rosa Maria Santacruz Work Phone: [facility] 08-29-2023 00:25-0500 SaO2% (BldA) [Mass fraction] 100 % Dr. Rosa Maria Santacruz Work Phone: [facility] 08-27-2023 13:01-0500 Body temperature 97.3 [degF] Dr. Paco Norman Work Phone: [facility] 08-27-2023 13:01-0500 Diastolic blood pressure 61 mm[Hg] Dr. Paco Norman Work Phone: [facility] 08-27-2023 13:01-0500 Heart rate 75 /min Dr. Paco Norman Work Phone: [facility] 08-27-2023 13:01-0500 Respiratory rate 18 /min Dr. Paco Norman Work Phone: [facility] 08-27-2023 13:01-0500 Systolic blood pressure 142 mm[Hg] Dr. Paco Norman Work Phone: [facility] 08-20-2023 13:14-0500 Body temperature 97.3 [degF] Dr. Paco Norman Work Phone: [facility] 08-20-2023 13:14-0500 Diastolic blood pressure 63 mm[Hg] Dr. Paco Norman Work Phone: [facility] 08-20-2023 13:14-0500 Heart rate 74 /min Dr. Paco Norman Work Phone: [facility] 08-20-2023 13:14-0500 Respiratory rate 18 /min Dr. Paco Norman Work Phone: [facility] 08-20-2023 13:14-0500 Systolic blood pressure 144 mm[Hg] Dr. Paco Norman Work Phone: [facility] 08-18-2023 13:58-0500 Body height 177.[address] Paco Norman Work Phone: [facility] 08-18-2023 13:58-0500 Body mass index (BMI) [Ratio] 23.7 kg/m2 Dr. Paco Norman Work Phone: [facility] 08-18-2023 13:58-0500 Body temperature 98.7 [degF] Dr. Paco Norman Work Phone: [facility] 08-18-2023 13:58-0500 Body weight 74.[address] Paco Norman Work Phone: [facility] 08-18-2023 13:58-0500 Diastolic blood pressure 64 mm[Hg] Dr. Paco Norman Work Phone: [facility] 08-18-2023 13:58-0500 Heart rate 60 /min Dr. Paco Norman Work Phone: [facility] 08-18-2023 13:58-0500 Respiratory rate 18 /min Dr. Paco Norman Work Phone: [facility] 08-18-2023 13:58-0500 SaO2% (BldA) [Mass fraction] 98 % Dr. Paco Norman Work Phone: [facility] 08-18-2023 13:58-0500 Systolic blood pressure 146 mm[Hg] Dr. Paco Norman Work Phone: [facility] 07-31-2023 00:13-0500 Inhaled oxygen flow rate 2 L/min Dr. Paco Norman Work Phone: [facility] 07-31-2023 00:13-0500 SaO2% (BldA) [Mass fraction] 100 % Dr. Paco Norman Work Phone: [facility] 07-30-2023 14:11-0500 Body temperature 97.4 [degF] Dr. Paco Norman Work Phone: [facility] 07-30-2023 14:11-0500 Diastolic blood pressure 53 mm[Hg] Dr. Paco Norman Work Phone: [facility] 07-30-2023 14:11-0500 Heart rate 73 /min Dr. Paco Norman Work Phone: [facility] 07-30-2023 14:11-0500 Respiratory rate 18 /min Dr. Paco Norman Work Phone: [facility] 07-30-2023 14:11-0500 Systolic blood pressure 123 mm[Hg] Dr. Paco Norman Work Phone: [facility] 07-23-2023 14:09-0500 Inhaled oxygen flow rate 2 L/min Dr. Paco Norman Work Phone: [facility] 07-21-2023 14:50-0500 Diastolic blood pressure 50 mm[Hg] Dr. Paco Norman Work Phone: [facility] 07-21-2023 14:50-0500 Heart rate 62 /min Dr. Paco Norman Work Phone: [facility] 07-21-2023 14:50-0500 Systolic blood pressure 134 mm[Hg] Dr. Paco Norman Work Phone: [facility] 07-21-2023 14:09-0500 Body mass index (BMI) [Ratio] 25.1 kg/m2 Dr. Paco Norman Work Phone: [facility] 07-21-2023 14:09-0500 Body temperature 97.2 [degF] Dr. Paco Norman Work Phone: [facility] 07-21-2023 14:09-0500 Inhaled oxygen flow rate 2 L/min Dr. Paco Norman Work Phone: [facility] 07-21-2023 14:09-0500 Respiratory rate 16 /min Dr. Paco Norman Work Phone: [facility] 07-21-2023 14:09-0500 SaO2% (BldA) [Mass fraction] 99 % Dr. Paco Norman Work Phone: [facility] 07-16-2023 14:26-0500 SaO2% (BldA) [Mass fraction] 100 % Dr. Paco Norman Work Phone: [facility] 07-09-2023 14:08-0500 Body temperature 96.8 [degF] Dr. Paco Norman Work Phone: [facility] 07-09-2023 14:08-0500 Diastolic blood pressure 39 mm[Hg] Dr. Paco Norman Work Phone: [facility] 07-09-2023 14:08-0500 Heart rate 72 /min Dr. Paco Norman Work Phone: [facility] 07-09-2023 14:08-0500 Inhaled oxygen flow rate 2 L/min Dr. Paco Norman Work Phone: [facility] 07-09-2023 14:08-0500 Respiratory rate 18 /min Dr. Paco Norman Work Phone: [facility] 07-09-2023 14:08-0500 SaO2% (BldA) [Mass fraction] 92 % Dr. Paco Norman Work Phone: [facility] 07-09-2023 14:08-0500 Systolic blood pressure 131 mm[Hg] Dr. Paco Norman Work Phone: [facility] 07-07-2023 14:43-0500 Body height 177.[address] Paco Norman Work Phone: [facility] 07-07-2023 14:43-0500 Body mass index (BMI) [Ratio] 25.3 kg/m2 Dr. Paco Norman Work Phone: [facility] 07-07-2023 14:43-0500 Body temperature 98.2 [degF] Dr. Paco Norman Work Phone: [facility] 07-07-2023 14:43-0500 Body weight 80.[address] Paco Norman Work Phone: [facility] 07-07-2023 14:43-0500 Diastolic blood pressure 53 mm[Hg] Dr. Paco Norman Work Phone: [facility] 07-07-2023 14:43-0500 Heart rate 63 /min Dr. Paco Norman Work Phone: [facility] 07-07-2023 14:43-0500 Respiratory rate 18 /min Dr. Paco Norman Work Phone: [facility] 07-07-2023 14:43-0500 SaO2% (BldA) [Mass fraction] 95 % Dr. Paco Norman Work Phone: [facility] 07-07-2023 14:43-0500 Systolic blood pressure 117 mm[Hg] Dr. Paco Norman Work Phone: [facility] 06-25-2023 15:35-0500 Body temperature 97.6 [degF] Dr. Paco Norman Work Phone: [facility] 06-25-2023 15:35-0500 Diastolic blood pressure 61 mm[Hg] Dr. Paco Norman Work Phone: [facility] 06-25-2023 15:35-0500 Heart rate 62 /min Dr. Paco Norman Work Phone: [facility] 06-25-2023 15:35-0500 Inhaled oxygen flow rate 2 L/min Dr. Paco Norman Work Phone: [facility] 06-25-2023 15:35-0500 Respiratory rate 16 /min Dr. Paco Norman Work Phone: [facility] 06-25-2023 15:35-0500 SaO2% (BldA) [Mass fraction] 97 % Dr. Paco Norman Work Phone: [facility] 06-25-2023 15:35-0500 Systolic blood pressure 155 mm[Hg] Dr. Paco Norman Work Phone: [facility] 06-25-2023 11:54-0500 Body height 177.[address] Paco Norman Work Phone: [facility] 06-25-2023 11:54-0500 Body weight 85.[address] Paco Norman Work Phone: [facility] 06-24-2023 09:54-0500 Body mass index (BMI) [Ratio] 26.9 kg/m2 Dr. Paco Norman Work Phone: [facility] 06-20-2023 07:55-0500 Body temperature 97.6 [degF] Dr. Paco Norman Work Phone: [facility] 06-20-2023 07:55-0500 Diastolic blood pressure 75 mm[Hg] Dr. Paco Norman Work Phone: [facility] 06-20-2023 07:55-0500 Heart rate 44 /min Dr. Paco Norman Work Phone: [facility] 06-20-2023 07:55-0500 Respiratory rate 14 /min Dr. Paco Norman Work Phone: [facility] 06-20-2023 07:55-0500 SaO2% (BldA) [Mass fraction] 99 % Dr. Paco Norman Work Phone: [facility] 06-20-2023 07:55-0500 Systolic blood pressure 125 mm[Hg] Dr. Paco Norman Work Phone: [facility] 06-20-2023 00:43-0500 Body height 177.[address] Paco Norman Work Phone: [facility] 06-20-2023 00:43-0500 Body mass index (BMI) [Ratio] 27.4 kg/m2 Dr. Paco Norman Work Phone: [facility] 06-20-2023 00:43-0500 Body weight 86.[address] Paco Norman Work Phone: [facility] 06-18-2023 13:53-0500 Diastolic blood pressure 66 mm[Hg] Dr. Paco Norman Work Phone: [facility] 06-18-2023 13:53-0500 Heart rate 58 /min Dr. Paco Norman Work Phone: [facility] 06-18-2023 13:53-0500 Respiratory rate 20 /min Dr. Paco Norman Work Phone: [facility] 06-18-2023 13:53-0500 Systolic blood pressure 135 mm[Hg] Dr. Paco Norman Work Phone: [facility] 06-18-2023 11:35-0500 Body temperature 97.8 [degF] Dr. Paco Norman Work Phone: [facility] 06-18-2023 11:35-0500 Body weight 84.[address] Paco Norman Work Phone: [facility] 06-18-2023 11:35-0500 Diastolic blood pressure 55 mm[Hg] Dr. Paco Norman Work Phone: [facility] 06-18-2023 11:35-0500 Heart rate 61 /min Dr. Paco Norman Work Phone: [facility] 06-18-2023 11:35-0500 Respiratory rate 18 /min Dr. Paco Norman Work Phone: [facility] 06-18-2023 11:35-0500 Systolic blood pressure 119 mm[Hg] Dr. Paco Norman Work Phone: [facility] 06-11-2023 11:37-0500 Body temperature 97.1 [degF] Dr. Paco Norman Work Phone: [facility] 06-06-2023 17:06-0500 Diastolic blood pressure 76 mm[Hg] Dr. Paco Norman Work Phone: [facility] 06-06-2023 17:06-0500 Heart rate 60 /min Dr. Paco Norman Work Phone: [facility] 06-06-2023 17:06-0500 Respiratory rate 16 /min Dr. Paco Norman Work Phone: [facility] 06-06-2023 17:06-0500 SaO2% (BldA) [Mass fraction] 92 % Dr. Paco Norman Work Phone: [facility] 06-06-2023 17:06-0500 Systolic blood pressure 158 mm[Hg] Dr. Paco Norman Work Phone: [facility] 06-06-2023 14:01-0500 Body height 180.[address] Paco Norman Work Phone: [facility] 06-06-2023 14:01-0500 Body temperature 97 [degF] Dr. Paco Norman Work Phone: [facility] 06-04-2023 11:30-0500 Body temperature 97 [degF] Dr. Paco Norman Work Phone: [facility] 06-04-2023 11:30-0500 Diastolic blood pressure 62 mm[Hg] Dr. Paco Norman Work Phone: [facility] 06-04-2023 11:30-0500 Heart rate 74 /min Dr. Paco Norman Work Phone: [facility] 06-04-2023 11:30-0500 Respiratory rate 18 /min Dr. Paco Norman Work Phone: [facility] 06-04-2023 11:30-0500 Systolic blood pressure 140 mm[Hg] Dr. Paco Norman Work Phone: [facility] 05-21-2023 13:21-0500 Body temperature 97.2 [degF] Dr. Paco Norman Work Phone: [facility] 05-21-2023 13:21-0500 Diastolic blood pressure 50 mm[Hg] Dr. Paco Noramn Work Phone: [facility] 05-21-2023 13:21-0500 Heart rate 57 /min Dr. Paco Norman Work Phone: [facility] 05-21-2023 13:21-0500 Respiratory rate 18 /min Dr. Paco Norman Work Phone: [facility] 05-21-2023 13:21-0500 Systolic blood pressure 143 mm[Hg] Dr. Paco Norman Work Phone: [facility] 05-14-2023 14:28-0500 Body temperature 96.9 [degF] Dr. Rosa Maria Santacruz Work Phone: [facility] 05-14-2023 14:28-0500 Diastolic blood pressure 55 mm[Hg] Dr. Rosa Maria Santacruz Work Phone: [facility] 05-14-2023 14:28-0500 Heart rate 62 /min Dr. Rosa Maria Santacruz Work Phone: [facility] 05-14-2023 14:28-0500 Respiratory rate 16 /min Dr. Rosa Maria Santacruz Work Phone: [facility] 05-14-2023 14:28-0500 Systolic blood pressure 112 mm[Hg] Dr. Rosa Maria Santacruz Work Phone: [facility] 05-08-2023 11:28-0500 Body temperature 98.2 [degF] Dr. Rosa Maria Santacruz Work Phone: [facility] 05-08-2023 11:28-0500 Body weight 81.[address] Rosa Maria Santacruz Work Phone: [facility] 05-08-2023 11:28-0500 Diastolic blood pressure 62 mm[Hg] Dr. Ros aMaria Santacruz Work Phone: [facility] 05-08-2023 11:28-0500 Heart rate 60 /min Dr. Rosa Maria Santacruz Work Phone: [facility] 05-08-2023 11:28-0500 Respiratory rate 16 /min Dr. Rosa Maria Santacruz Work Phone: [facility] 05-08-2023 11:28-0500 SaO2% (BldA) [Mass fraction] 96 % Dr. Rosa Maria Santacruz Work Phone: [facility] 05-08-2023 11:28-0500 Systolic blood pressure 124 mm[Hg] Dr. Rosa Maria Santacruz Work Phone: [facility] 04-23-2023 13:46-0400 Body temperature 96.8 [degF] Dr. Paco Norman Work Phone: [facility] 04-23-2023 13:46-0400 Diastolic blood pressure 49 mm[Hg] Dr. Paco Norman Work Phone: [facility] 04-23-2023 13:46-0400 Heart rate 66 /min Dr. Paco Norman Work Phone: [facility] 04-23-2023 13:46-0400 Respiratory rate 18 /min Dr. Paco oNrman Work Phone: [facility] 04-23-2023 13:46-0400 Systolic blood pressure 170 mm[Hg] Dr. Paco Norman Work Phone: [facility] 04-14-2023 14:27-0400 Body height 180.[address] Paco Norman Work Phone: [facility] 04-14-2023 14:27-0400 Body mass index (BMI) [Ratio] 22.6 kg/m2 Dr. Paco Norman Work Phone: [facility] 04-14-2023 14:27-0400 Body temperature 98.7 [degF] Dr. Paco Norman Work Phone: [facility] 04-14-2023 14:27-0400 Body weight 73.[address] Paco Norman Work Phone: [facility] 04-14-2023 14:27-0400 Diastolic blood pressure 68 mm[Hg] Dr. Paco Norman Work Phone: [facility] 04-14-2023 14:27-0400 Heart rate 57 /min Dr. Paco Norman Work Phone: [facility] 04-14-2023 14:27-0400 Respiratory rate 16 /min Dr. Paco Norman Work Phone: [facility] 04-14-2023 14:27-0400 SaO2% (BldA) [Mass fraction] 99 % Dr. Paco Norman Work Phone: [facility] 04-14-2023 14:27-0400 Systolic blood pressure 117 mm[Hg] Dr. Paco Norman Work Phone: [facility] 01-24-2023 14:06-0400 Body height 180.[address] Rosa Maria Santacruz Work Phone: [facility] 01-24-2023 14:06-0400 Body mass index (BMI) [Ratio] 21.4 kg/m2 Dr. Rosa Maria Santacruz Work Phone: [facility] 01-24-2023 14:06-0400 Body weight 69.[address] Rosa Maria Santacruz Work Phone: [facility] 01-24-2023 14:06-0400 Diastolic blood pressure 41 mm[Hg] Dr. Rosa Maria Santacruz Work Phone: [facility] 01-24-2023 14:06-0400 Heart rate 61 /min Dr. Rosa Maria Santacruz Work Phone: [facility] 01-24-2023 14:06-0400 Respiratory rate 18 /min Dr. Rosa Maria Santacruz Work Phone: [facility] 01-24-2023 14:06-0400 SaO2% (BldA) [Mass fraction] 96 % Dr. Rosa Maria Santacruz Work Phone: [facility] 01-24-2023 14:06-0400 Systolic blood pressure 69 mm[Hg] Dr. Rosa Maria Santacruz Work Phone: [facility] 01-22-2023 11:47-0400 Body height 177.8 cm Azucenalinda Hsugatmonika [employer] REPAIRER Work Phone: [facility] 01-22-2023 11:47-0400 Body weight 75 kg Azucena Fegatelli [employer] TECHNICIAN.BOAT REPAIRER Work Phone: [facility] 01-22-2023 11:47-0400 Diastolic blood pressure 51 mm[Hg] Azucena Fegatelli [employer] TECHNICIAN.BOAT REPAIRER Work Phone: [facility] 01-22-2023 11:47-0400 Heart rate 66 /min Azucena Fegatelli [employer] TECHNICIAN.BOAT REPAIRER Work Phone: [facility] 01-22-2023 11:47-0400 SaO2% (BldA) [Mass fraction] 98 % Azucena Fegatelli [employer] TECHNICIAN.BOAT REPAIRER Work Phone: [facility] 01-22-2023 11:47-0400 Systolic blood pressure 87 mm[Hg] Azucena Fegatmonika [employer] G[employer] TECHNICIAN.BOAT REPAIRER Work Phone: [facility] 01-03-2023 09:22-0400 Diastolic blood pressure 96 mm[Hg] Dr. Rosa Maria Santacruz Work Phone: [facility] 01-03-2023 09:22-0400 Systolic blood pressure 166 mm[Hg] Dr. Rosa Maria Santacruz Work Phone: [facility] 01-03-2023 08:47-0400 Heart rate 62 /min Dr. Rosa Maria Santacruz Work Phone: [facility] 01-03-2023 08:47-0400 Respiratory rate 16 /min Dr. Rosa Maria Santacruz Work Phone: [facility] 01-03-2023 08:47-0400 SaO2% (BldA) [Mass fraction] 96 % Dr. Rosa Maria Santacruz Work Phone: [facility] 01-03-2023 06:40-0400 Body height 180.[address] Rosa Maria Santacruz Work Phone: 9(037)221-125542 [place] [address] 01-03-2023 06:40-0400 Body mass index (BMI) [Ratio] 22.3 kg/m2 Dr. Rosa Maria Santacruz Work Phone: [facility] 01-03-2023 06:40-0400 Body temperature 98.6 [degF] Dr. Rosa Maria Santacruz Work Phone: [facility] 01-03-2023 06:40-0400 Body weight 72.[address] Rosa Maria Santacruz Work Phone: [facility] 12-23-2022 09:30-0400 Respiratory rate 16 /min Dr. Rosa Maria Santacruz Work Phone: [facility] 12-23-2022 08:12-0400 Body temperature 98.1 [degF] Dr. Rosa Maria Santacruz Work Phone: [facility] 12-23-2022 08:12-0400 Diastolic blood pressure 51 mm[Hg] Dr. Rosa Maria Santacruz Work Phone: [facility] 12-23-2022 08:12-0400 Heart rate 68 /min Dr. Rosa Maria Santacruz Work Phone: [facility] [facility] 12-23-2022 08:12-0400 SaO2% (BldA) [Mass fraction] 94 % Dr. Rosa Maria Santacruz Work Phone: [facility] 12-23-2022 08:12-0400 Systolic blood pressure 113 mm[Hg] Dr. Rosa Maria Santacruz Work Phone: [facility] 12-23-2022 05:49-0400 Body mass index (BMI) [Ratio] 23.3 kg/m2 Dr. Rosa Maria Santacruz Work Phone: [facility] 12-23-2022 05:49-0400 Body weight 75.[address] Rosa Maria Santacruz Work Phone: [facility] 12-23-2022 05:09-0400 Body temperature 98.8 [degF] Dr. Rosa Maria Santacruz Work Phone: [facility] 12-23-2022 05:09-0400 Diastolic blood pressure 57 mm[Hg] Dr. Rosa Maria Santacruz Work Phone: [facility] 12-23-2022 05:09-0400 Heart rate 60 /min Dr. Rosa Maria Santacruz Work Phone: [facility] 12-23-2022 05:09-0400 Respiratory rate 16 /min Dr. Rosa Maria Santacruz Work Phone: [facility] 12-23-2022 05:09-0400 SaO2% (BldA) [Mass fraction] 95 % Dr. Rosa Maria Santacruz Work Phone: [facility] 12-23-2022 05:09-0400 Systolic blood pressure 159 mm[Hg] Dr. Rosa Maria Santacruz Work Phone: [facility] 12-20-2022 17:28-0400 Body temperature 98 [degF] Dr. Rosa Maria Santacruz Work Phone: [facility] 12-20-2022 17:28-0400 Diastolic blood pressure 77 mm[Hg] Dr. Rosa Maria Santacruz Work Phone: [facility] 12-20-2022 17:28-0400 Heart rate 59 /min Dr. Rosa Maria Santacruz Work Phone: [facility] 12-20-2022 17:28-0400 Respiratory rate 16 /min Dr. Rosa Maria Santacruz Work Phone: [facility] 12-20-2022 17:28-0400 SaO2% (BldA) [Mass fraction] 99 % Dr. Rosa Maria Santacruz Work Phone: [facility] 12-20-2022 17:28-0400 Systolic blood pressure 157 mm[Hg] Dr. Rosa Maria Santacruz Work Phone: [facility] 12-20-2022 17:15-0400 Inhaled oxygen flow rate 2 L/min Dr. Rosa Maria Santacruz Work Phone: [facility] 12-20-2022 15:14-0400 Body height 180.[address] Rosa Maria Santacruz Work Phone: [facility] 12-20-2022 15:14-0400 Body mass index (BMI) [Ratio] 55.6 kg/m2 Dr. Rosa Maria Santacruz Work Phone: [facility] 12-20-2022 15:14-0400 Body weight [address] Rosa Maria Santacruz Work Phone: [facility] 12-18-2022 21:12-0400 Diastolic blood pressure 61 mm[Hg] Dr. Rosa Maria Santacruz Work Phone: [facility] 12-18-2022 21:12-0400 Heart rate 66 /min Dr. Rosa Maria Santacruz Work Phone: [facility] 12-18-2022 21:12-0400 Respiratory rate 18 /min Dr. Rosa Maria Santacruz Work Phone: [facility] 12-18-2022 21:12-0400 Systolic blood pressure 167 mm[Hg] Dr. Rosa Maria Santacruz Work Phone: [facility] 12-18-2022 17:05-0400 Body mass index (BMI) [Ratio] 23.7 kg/m2 Dr. Rsoa Maria Santacruz Work Phone: [facility] 12-18-2022 17:05-0400 Body weight 75.[address] Rosa Maria Santacruz Work Phone: [facility] 12-18-2022 14:41-0400 Body height 177.[address] Rosa Maria Santacruz Work Phone: [facility] 12-18-2022 14:05-0400 Body temperature 97.2 [degF] Dr. Rosa Maria Santacruz Work Phone: [facility] 12-18-2022 14:05-0400 Diastolic blood pressure 52 mm[Hg] Dr. Rosa Maria Santacruz Work Phone: [facility] 12-18-2022 14:05-0400 Heart rate 62 /min Dr. Rosa Maria Santacruz Work Phone: [facility] 12-18-2022 14:05-0400 Respiratory rate 16 /min Dr. Rosa Maria Santacruz Work Phone: [facility] 12-18-2022 14:05-0400 Systolic blood pressure 122 mm[Hg] Dr. Rosa Maria Santacruz Work Phone: [facility] 12-18-2022 12:05-0400 SaO2% (BldA) [Mass fraction] 97 % Dr. Rosa Maria Santacruz Work Phone: [facility] 12-03-2022 15:45-0400 Body temperature 98.9 [degF] Dr. Rosa Maria Santacruz Work Phone: [facility] 12-03-2022 15:45-0400 Diastolic blood pressure 58 mm[Hg] Dr. Rosa Maria Santacruz Work Phone: [facility] 12-03-2022 15:45-0400 Heart rate 72 /min Dr. Rosa Maria Santacruz Work Phone: [facility] 12-03-2022 15:45-0400 Respiratory rate 16 /min Dr. Rosa Maria Santacruz Work Phone: [facility] 12-03-2022 15:45-0400 SaO2% (BldA) [Mass fraction] 97 % Dr. Rosa Maria Santacruz Work Phone: [facility] 12-03-2022 15:45-0400 Systolic blood pressure 116 mm[Hg] Dr. Rosa Maria Santacruz Work Phone: [facility] 12-03-2022 03:48-0400 Body mass index (BMI) [Ratio] 25.4 kg/m2 Dr. Rosa Maria Santacruz Work Phone: 3(685)433-882842 [place] [address] 12-03-2022 03:48-0400 Body weight 80.[address] Rosa Maria Santacruz Work Phone: 6(171)526-733942 [place] [address] 11-29-2022 15:01-0400 Body height 177.[address] Rosa Maria Santacruz Work Phone: [facility] 11-29-2022 04:00-0400 Diastolic blood pressure 53 mm[Hg] Dr. Rosa Maria Santacruz Work Phone: 4(545)831-673642 [place] [address] 11-29-2022 04:00-0400 Heart rate 59 /min Dr. Rosa Maria Santacruz Work Phone: [facility] 11-29-2022 04:00-0400 Respiratory rate 16 /min Dr. Rosa Maria Santacruz Work Phone: [facility] 11-29-2022 04:00-0400 SaO2% (BldA) [Mass fraction] 96 % Dr. Rosa Maria Santacruz Work Phone: [facility] 11-29-2022 04:00-0400 Systolic blood pressure 125 mm[Hg] Dr. Rosa Maria Santacruz Work Phone: [facility] 11-29-2022 03:00-0400 Body temperature 100.8 [degF] Dr. Rosa Maria Santacruz Work Phone: 1(071)546-523561 [address] 11-29-2022 01:38-0400 Body height 180.[address] Rosa Maria Santacruz Work Phone: 6(430)554-148042 [place] [address] 11-29-2022 01:38-0400 Body mass index (BMI) [Ratio] 25.1 kg/m2 Dr. Rosa Maria Santacruz Work Phone: 1(649)955-549408 [place] [address] 11-29-2022 01:38-0400 Body weight 81.[address] Rosa Maria Santacruz Work Phone: 8(045)973-199208 [place] [address] 10-17-2022 10:03-0400 Body height 180.[address] Rosa Maria Santacruz Work Phone: 1(648)965-356408 [place] [address] 10-17-2022 10:03-0400 Body mass index (BMI) [Ratio] 25.2 kg/m2 Dr. Rosa Maria Santacruz Work Phone: 6(357)241-677008 [place] [address] 10-17-2022 10:03-0400 Body weight 82.[address] Rosa Maria Santacruz Work Phone: 9(197)348-523561 [address] 10-17-2022 10:03-0400 Diastolic blood pressure 67 mm[Hg] Dr. Rosa Maria Santacruz Work Phone: 9(496)285-454208 [place] [address] 10-17-2022 10:03-0400 Heart rate 58 /min Dr. Rosa Maria Santacruz Work Phone: 2(321)917-485508 [place] [address] 10-17-2022 10:03-0400 Respiratory rate 18 /min Dr. Rosa Maria Santacruz Work Phone: 7(973)545-072608 [place] [address] 10-17-2022 10:03-0400 SaO2% (BldA) [Mass fraction] 95 % Dr. Rosa Maria Santacruz Work Phone: 2(881)783-735408 [place] [address] 10-17-2022 10:03-0400 Systolic blood pressure 163 mm[Hg] Dr. Rosa Maria Santacruz Work Phone: 6(161)951-561461 [address] 06-20-2022 13:15-0500 Body height 180.[address] Rosa Maria Santacruz Work Phone: 4(359)188-245708 [place] [address] 06-20-2022 13:15-0500 Body mass index (BMI) [Ratio] 24.8 kg/m2 Dr. Rosa Maria Santacruz Work Phone: [facility] 06-20-2022 13:15-0500 Body weight 80.[address] Rosa Maria Santacruz Work Phone: [facility] 06-20-2022 13:15-0500 Diastolic blood pressure 70 mm[Hg] Dr. Rosa Maria Santacruz Work Phone: [facility] 06-20-2022 13:15-0500 Heart rate 56 /min Dr. Rosa Maria Santacruz Work Phone: [facility] 06-20-2022 13:15-0500 Systolic blood pressure 148 mm[Hg] Dr. Rosa Maria Santacruz Work Phone: 6(140)471-687442 [place] [address] 06-05-2022 11:08-0500 Body mass index (BMI) [Ratio] 24.1 kg/m2 Dr. Rosa Maria Santacruz Work Phone: [facility] 06-05-2022 11:08-0500 Body weight 78.[address] Rosa Maria Santacruz Work Phone: [facility] 06-05-2022 11:08-0500 Diastolic blood pressure 78 mm[Hg] Dr. Rosa Maria Santacruz Work Phone: [facility] 06-05-2022 11:08-0500 Heart rate 50 /min Dr. Rosa Maria Santacruz Work Phone: [facility] 06-05-2022 11:08-0500 Respiratory rate 20 /min Dr. Rosa Maria Santacruz Work Phone: [facility] 06-05-2022 11:08-0500 SaO2% (BldA) [Mass fraction] 98 % Dr. Rosa Maria Santacruz Work Phone: [facility] 06-05-2022 11:08-0500 Systolic blood pressure 199 mm[Hg] Dr. Rosa Maria Santacruz Work Phone: [facility] 05-20-2022 19:39-0500 Diastolic blood pressure 72 mm[Hg] Dr. Rosa Maria Santacruz Work Phone: [facility] 05-20-2022 19:39-0500 Heart rate 56 /min Dr. Rosa Maria Santacruz Work Phone: [facility] 05-20-2022 19:39-0500 Respiratory rate 25 /min Dr. Rosa Maria Santacruz Work Phone: [facility] 05-20-2022 19:39-0500 SaO2% (BldA) [Mass fraction] 97 % Dr. Rosa Maria Santacruz Work Phone: [facility] 05-20-2022 19:39-0500 Systolic blood pressure 222 mm[Hg] Dr. Rosa Maria Santacruz Work Phone: [facility] 05-20-2022 15:23-0500 Body mass index (BMI) [Ratio] 25.1 kg/m2 Dr. Rosa Maria Santacruz Work Phone: [facility] 05-20-2022 15:23-0500 Body temperature 97.1 [degF] Dr. Rosa Maria Santacruz Work Phone: [facility] 05-20-2022 15:23-0500 Body weight 81.[address] Rosa Maria Santacruz Work Phone: [facility] 04-03-2022 13:35-0400 Body height 180.[address] Rosa Maria Santacruz Work Phone: [facility] Work Phone: 04-03-2022 13:30-0400 Body mass index (BMI) [Ratio] 25.1 kg/m2 Dr. Rosa Maria Santacruz Work Phone: [facility] Work Phone: 04-03-2022 13:30-0400 Body temperature 98.3 [degF] Dr. Rosa Maria Santacruz Work Phone: [facility] Work Phone: 04-03-2022 13:30-0400 Body weight 81.[address] Rosa Maria Santacruz Work Phone: [facility] Work Phone: 04-03-2022 13:30-0400 Diastolic blood pressure 78 mm[Hg] Dr. Rosa Maria Santacruz Work Phone: [facility] Work Phone: 04-03-2022 13:30-0400 Heart rate 56 /min Dr. Rosa Maria Santacruz Work Phone: [facility] Work Phone: 04-03-2022 13:30-0400 Respiratory rate 16 /min Dr. Rosa Maria Santacruz Work Phone: [facility] Work Phone: 04-03-2022 13:30-0400 SaO2% (BldA) [Mass fraction] 98 % Dr. Rosa Maria Santacruz Work Phone: [facility] Work Phone: 04-03-2022 13:30-0400 Systolic blood pressure 162 mm[Hg] Dr. Rosa Maria Santacruz Work Phone: [facility] Work Phone: 10-07-2020 12:36-0400 Body Temperature 97.7 [degF] Roman Rob KELLY Work Phone: 10-07-2020 12:36-0400 BP Diastolic 54 mm[Hg] Romanyuriy KELLY Work Phone: 10-07-2020 12:36-0400 BP Systolic 121 mm[Hg] Romanyuriy KELLY Work Phone: 10-07-2020 12:36-0400 Pulse (Heart Rate) 71 /min Roman KELLY Work Phone: 10-07-2020 12:36-0400 Pulse Oximetry 97 % Roman KELLY Work Phone: 10-07-2020 12:36-0400 Respiratory Rate 18 /min Romanyuriy KELLY Work Phone: 10-06-2020 06:00-0400 BMI (Body Mass Index) 24.6 kg/m2 Roman KELLY Work Phone: 10-06-2020 06:00-0400 Body weight 80.02 kg Roman KELLY Work Phone: 10-03-2020 08:50-0400 Height 180.3 cm Roman KELLY Work Phone: Comment on above: per chart 09-21-2020 16:31-0400 Body Temperature 98.01 [degF] Alessio KELLY Work Phone: 09-21-2020 16:31-0400 BP Diastolic 60 mm[Hg] Alessio KELLY Work Phone: 09-21-2020 16:31-0400 BP Systolic 108 mm[Hg] Alessio KELLY Work Phone: 09-21-2020 16:31-0400 Pulse (Heart Rate) 86 /min Alessio KELLY Work Phone: 09-21-2020 16:31-0400 Pulse Oximetry 99 % Alessio KELLY Work Phone: 09-21-2020 16:31-0400 Respiratory Rate 18 /min Alessio KELLY Work Phone: 09-20-2020 06:00-0400 BMI (Body Mass Index) 26.44 kg/m2 Alessio KELLY Work Phone: 09-20-2020 06:00-0400 Body weight 86 kg Alessio KELLY Work Phone: 09-11-2020 22:30-0400 Height 180.3 cm Alessio KELLY Work Phone: Encounters Encounter Date Encounter Type Care Provider Facility Start: 02-23-2025 ambulatory Jakob Jiménez Facility:[facility] Start: 02-15-2025 End: 02-15-[address] Rosa Maria Santacruz MD Work Phone: [facility] [place] Start: 02-15-2025 End: 02-15-[address] Jakob Jiménez MD -[facility] [place] Work Phone: Start: 02-15-2025 End: 02-15-2025 ambulatory Singhgiselle Brewerler Facility:[facility] Start: 01-10-2025 Encounter for other preprocedural examination Forrest Umaña [facility] Start: 12-27-2024 ambulatory Forrest Galloway lity:[facility] Start: 12-27-2024 Non-patient / Non-visit Dr. Jena Umaña MD -[facility] Start: 12-27-2024 Dr. Forrest Umaña MD -[facility] Start: 12-27-2024 End: 12-27-2024 Admission to same day surgery center Dr. Forrest Umaña MD [facility] Start: 12-27-2024 End: 12-27-2024 Dr. Forrest Umaña MD [facility] Start: 12-27-2024 End: 12-27-[address] Rosa Maria Santacruz MD Work Phone: [facility] Start: 12-16-2024 End: 12-16-2024 ambulatory Raquel Luevano Facility:[facility] Start: 12-16-2024 End: 12-16-2024 Non-patient / Non-visit Dr. Raquel Luevano MD -[facility] Work Phone: Start: 12-16-2024 End: 12-16-2024 Dr. Raquel Luevano MD -[facility] Work Phone: Start: 12-10-2024 End: 12-10-[address] Forrest Umaña MD -[facility] Work Phone: Start: 12-10-2024 End: 12-10-2024 Dr. Forrest Umaña MD -[facility] Work Phone: Start: 12-10-2024 End: 12-10-[address] Rosa Maria Santacruz MD Work Phone: [facility] Work Phone: Start: 12-06-2024 End: 12-06-[address] Rosa Maria Santacruz MD Work Phone: [facility] Work Phone: Start: 12-06-2024 End: 12-06-[address] Jakob Jiménez MD -[facility] [place] Work Phone: Start: 12-06-2024 End: 12-06-2024 Dr. Jakob Jiménez MD -[facility] [place] Work Phone: Start: 12-06-2024 End: 12-06-2024 ambulatory [facility] Facility:[facility] Start: 11-29-2024 End: 11-29-[address] Rosa Maria Santacruz MD Work Phone: [facility] Work Phone: Start: 11-29-2024 End: 11-29-[address] Jakob Jiménez MD -[facility] [place] Work Phone: Start: 11-29-2024 End: 11-29-2024 Dr. Jakob Jiménez MD -[facility] [place] Work Phone: Start: 11-29-2024 End: 11-29-2024 ambulatory [facility] Facility:[facility] Start: 11-18-2024 End: 11-18-[address] Rosa Maria Santacruz MD Work Phone: [facility] Work Phone: Start: 11-18-2024 End: 11-18-[address] Singh Khanna MD -[facility] Work Phone: Start: 11-18-2024 End: 11-18-2024 Dr. Singh Khanna MD -[facility] Work Phone: Start: 11-18-2024 End: 11-18-2024 ambulatory Rosa Maria Santacruz Facility:[facility] Start: 11-08-2024 End: 11-08-2024 Dr. Frederick Roberts MD -Emergency Department Work Phone: Start: 11-08-2024 End: 11-08-2024 Emergency department patient visit Dr. Rosa Maria Santacruz MD Work Phone: -Emergency Department Work Phone: Start: 11-08-2024 End: 11-08-[address] Mathieu Mcintyre MD -[facility] Work Phone: Start: 11-08-2024 End: 11-08-2024 ambulatory Mathieu Mcintyre Facility:[facility] Start: 11-08-[address] Mathieu Mcintyre MD -[facility] Start: 11-08-2024 End: 11-08-2024 Dr. Mathieu Mcintyre MD -[facility] Work Phone: Start: 10-06-2024 End: 10-06-[address] Rosa Maria Santacruz MD Work Phone: [facility] Work Phone: Start: 10-06-2024 End: 10-06-[address] Singh Khanna MD -Cardiovascular Services Work Phone: Start: 10-06-2024 End: 10-06-2024 Dr. Singh Khanna MD -[facility] Work Phone: Start: 10-06-2024 End: 10-06-2024 ambulatory Singh Khanna Facility:[facility] Start: 10-01-2024 End: 10-01-2024 Patient encounter procedure Dayne ARITA -[facility] Work Phone: Start: 10-01-2024 End: 10-01-2024 Dayne ARITA -[facility] Work Phone: Start: 10-01-2024 End: 10-01-2024 ambulatory Rosa Maria Santacruz Facility:[facility] Start: 09-14-2024 End: 09-14-[address] Rosa Maria Santacruz MD Work Phone: [facility] Work Phone: Start: 09-14-2024 End: 09-14-[address] Rosa Maria Santacruz MD -[facility], [place] Work Phone: Start: 09-14-2024 End: 09-14-2024 Dr. Rosa Maria Santacruz MD -[facility] [place] Work Phone: Start: 09-14-2024 End: 09-14-2024 ambulatory Rosa Maria Santacruz Facility:[facility] Start: 04-08-2024 End: 04-08-2024 ambulatory Roni Rausch Facility:[facility] Start: 04-05-2024 End: 04-05-2024 ambulatory [facility] Facility:[facility] Start: 11-10-2023 End: 11-10-2023 Emergency department patient visit Dr. Rosa Maria Santacruz Work Phone: [facility]Emergency [facility] Work Phone: Start: 11-10-2023 End: 11-10-[address] Rosa Maria Santacruz Work Phone: [facility] Work Phone: Start: 11-10-[address] Rosa Maria faria Work Phone: [facility] Start: 09-29-2023 End: 09-29-[address] Rosa Maria Santacruz Work Phone: [facility] Work Phone: Start: 09-10-2023 End: 09-11-[address] Rosa Maria Santacruz Work Phone: [facility] Work Phone: Start: 09-10-2023 End: 09-11-[address] Rosa Maria Santacruz Work Phone: [facility] Work Phone: Start: 09-10-2023 End: 09-11-2023 Dr. Rosa Maria Santacruz Work Phone: [facility] Work Phone: Start: 09-03-2023 Dr. Rosa Maria leblanc Work Phone: [facility] Work Phone: Start: 09-03-2023 End: 09-03-[address] Rosa Maria Santacruz Work Phone: [facility] Work Phone: Start: 09-03-2023 End: 09-03-[address] Rosa Maria Santacruz Work Phone: [facility] Work Phone: Start: 09-03-2023 End: 09-03-2023 Dr. Rosa Maria Santacruz Work Phone: [facility] Work Phone: Start: 08-27-2023 End: 08-28-[address] Paco Norman Work Phone: [facility] Work Phone: Start: 08-27-2023 End: 08-28-[address] Rosa Maria Santacruz Work Phone: [facility] Work Phone: Start: 08-27-2023 End: 08-28-2023 Dr. Paco Norman Work Phone: [facility] Work Phone: Start: 08-25-2023 End: 08-25-[address] Rosa Maria Santacruz Work Phone: [facility] Work Phone: Start: 08-25-2023 End: 08-25-2023 Dr. Paco Norman Work Phone: [facility] Work Phone: Start: 08-20-2023 Dr. Paco Norman Work Phone: [facility] Work Phone: Start: 08-19-2023 End: 08-19-[address] Paco Norman Work Phone: [facility] Work Phone: Start: 08-19-2023 End: 08-19-[address] [facility] Start: 08-19-2023 End: 08-19-2023 Dr. [facility] Start: 08-18-2023 End: 08-18-[address] Rosa Maria Santacruz Work Phone: [facility] Work Phone: Start: 08-18-2023 End: 08-18-2023 Dr. Paco Norman Work Phone: [facility] Work Phone: Start: 07-30-2023 End: 07-30-[address] Rosa Maria Santacruz Work Phone: [facility] Work Phone: Start: 07-30-2023 End: 07-30-2023 Dr. Paco Norman Work Phone: [facility] Work Phone: Start: 07-11-2023 Dr. Rosa [facility]blanc [facility] Start: 07-11-2023 Dr. Rosa Maria leblanc Work Phone: [facility] Work Phone: Start: 07-09-2023 Dr[facility] Work [facility] Start: 07-08-2023 End: 07-08-[address] Paco Norman Work Phone: [facility] Work Phone: Start: 07-08-2023 End: 07-08-2023 Dr. [facility] Start: 07-07-2023 End: 07-07-2023 Dr. Paco Norman Work Phone: [facility] Work Phone: Start: 07-07-2023 Dr. Paco Norman Work Phone: [facility] Start: 07-04-2023 ambulatory NONE PHYSICIAN Facility :R Start: 06-25-2023 Dr. Paco Norman Work Phone: [facility] Work Phone: Start: 06-25-2023 Dr. Paco Norman Work Phone: [facility] Start: 06-24-2023 Dr. Paco Norman Work Phone: [facility] Start: 06-24-2023 Dr. Paco Norman Work Phone: [facility] Start: 06-23-2023 Dr. Paco Norman Work Phone: [facility] Start: 06-23-2023 Dr. Paco Norman Work Phone: [facility] Start: 06-22-2023 Dr. Paco Norman Work Phone: [facility] Work Phone: Start: 06-22-2023 Dr. Paco Norman Work Phone: [facility] Start: 06-21-2023 Dr. Paco Norman Work Phone: [facility] Work Phone: Start: 06-20-2023 Dr. Paco Norman Work Phone: [facility] Start: 06-20-2023 End: 06-25-2023 Evaluation and management of inpatient Dr. Paco Norman Work Phone: [facility] Work Phone: Start: 06-20-2023 End: 06-25-2023 Dr. Paco Norman Work Phone: [facility] Work Phone: Start: 06-18-2023 End: 06-29-[address] Paco Norman Work Phone: [facility] Work Phone: Start: 06-18-2023 End: 06-29-2023 Dr. Paco Norman Work Phone: [facility] Work Phone: Start: 06-18-2023 End: 06-18-2023 Dr. Paco Norman Work Phone: [facility] Work Phone: Start: 06-06-2023 End: 06-06-2023 Emergency department patient visit Dr. Paco Norman Work Phone: [facility] Work Phone: Start: 06-06-2023 End: 06-06-2023 Dr. Paco Norman Work Phone: [facility] Work Phone: Start: 06-04-[address] Krishan Norman [facility] Start: 05-21-2023 End: 05-29-[address] Paco Norman Work Phone: [facility] Work Phone: Start: 05-21-2023 End: 05-29-[address] Pac[facility] Start: 05-21-2023 End: 05-29-2023 Dr. Paco Norman Work Phone: [facility] Work Phone: Start: 05-15-2023 Non-patient / Non-visit Dr. Jelena Norman Work Phone: [facility] Start: 05-15-2023 End: 05-15-[address] Rosa Maria Santacruz Work Phone: [facility] Work Phone: Start: 05-15-2023 End: 05-15-[address] Pac[facility] Start: 05-15-2023 End: 05-15-2023 [facility] Start: 05-14-2023 Dr. Rosa Maria leblanc Work Phone: [facility] Work Phone: Start: 05-08-2023 End: 05-08-[address] Paco Norman Work Phone: [facility] Work Phone: Start: 05-08-2023 End: 05-08-2023 Dr. Rosa Maria Santacruz Work Phone: [facility] Work Phone: Start: 04-23-2023 End: 04-29-[address] Paco Norman Work Phone: [facility] Work Phone: Start: 04-23-2023 End: 04-29-[address] Paco Norman Work Phone: [facility] Work Phone: Start: 04-23-2023 End: 04-29-2023 Dr. Paco Norman Work Phone: [facility] Work Phone: Start: 04-14-2023 End: 04-14-[address] Paco Norman Work Phone: [facility] Work Phone: Start: 04-14-2023 End: 04-14-2023 Dr. Paco Norman Work Phone: [facility] Work Phone: Start: 03-26-[address] Brock Norman Work Phone: [facility] Start: 03-26-2023 Dr. Paco Norman Work Phone: [facility] Start: 03-25-[address] Brock Norman Work Phone: [facility] Start: 03-25-2023 Dr[facility] Start: 03-19-[address] Brock Norman Work Phone: [facility] Start: 03-19-2023 Dr. Paco Norman Work Phone: [facility] Start: 03-12-[address] Brock Norman Work Phone: [facility] Start: 03-12-2023 Dr. Paco Norman Work Phone: [facility] Start: 03-05-[address] Brock Norman Work Phone: [facility] Start: 03-05-2023 Dr. Paco Norman Work Phone: [facility] Start: 02-26-[address] [facility] Start: 02-26-2023 Dr. Pac[facility] Start: 02-19-[address] [facility] Start: 02-19-2023 Dr. Rosa Maria leblanc Work Phone: [facility] Start: 02-12-[address] Brock Norman Work Phone: [facility] Start: 02-12-2023 Dr. Rosa Maria leblanc Work Phone: [facility] Start: 02-05-2023 Dr. Rosa Maria leblanc Work Phone: [facility] Start: 01-30-2023 End: 01-30-[address] Rosa Maria Santacruz Work Phone: [facility] Work Phone: Start: 01-30-2023 End: 01-30-2023 Dr. Rosa Maria Santacruz Work Phone: [facility] Start: 01-29-2023 Dr. Rosa Maria leblanc Work Phone: [facility] Start: 01-24-2023 End: 01-24-2023 Dr. 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 Rosa Maria leblanc Work Phone: [facility] Start: 01-13-2023 Telephone encounter Errol Rosenberg MD Work Phone: [facility] Comment on above: Contact Center Call Start: 01-13-2023 Dr. Rosa Maria leblanc Work Phone: [facility] Start: 01-10-2023 End: 01-10-[address] Rosa Maria Santacruz Work Phone: [facility] Work Phone: Start: 01-10-2023 End: 01-10-2023 Dr. Rosa Maria Santacruz Work Phone: [facility] Work Phone: Start: 01-03-2023 End: 01-09-2023 Evaluation and management of inpatient ELIDA BORGES Facility:[facility] Start: 01-03-2023 End: 01-03-2023 Emergency department patient visit Dr. Rosa Maria Santacruz Work Phone: [facility] Work Phone: Start: 01-03-2023 End: 01-03-2023 Dr. Rosa Maria Santacruz Work Phone: [facility] Work Phone: Start: 01-01-2023 End: 01-01-[address] Rosa Maria Santacruz Work Phone: [facility] Work Phone: Start: 01-01-2023 End: 01-01-2023 Dr. Rosa Maria Santacruz Work Phone: [facility] Start: 12-31-2022 End: 12-31-2022 Dr. Rosa Maria Santacruz Work Phone: [facility] Work Phone: Start: 12-24-[address] Rosa Maria bourgeois Work Phone: [facility] Start: 12-24-2022 End: 12-24-2022 Dr. Rosa Maria Santacruz Work Phone: [facility] Start: 12-23-2022 End: 12-23-2022 Dr. Rosa Maria Santacruz Work Phone: [facility] Work Phone: Start: 12-22-2022 End: 12-22-[address] Rosa Maria Santacruz Work Phone: [facility] Work Phone: Start: 12-22-2022 End: 12-22-[address] Rosa Maria Santacruz Work Phone: [facility] Start: 12-22-2022 End: 12-22-2022 Dr. Rosa Maria Santacruz Work Phone: [facility] Work Phone: Start: 12-20-2022 Non-patient / Non-visit Dr. Bonnie Santacruz Work Phone: [facility] Start: 12-20-2022 Dr. Rosa Maria leblanc Work Phone: [facility] Start: 12-20-2022 End: 12-20-2022 Admission to same day surgery center Dr. Rosa Maria Santacruz Work Phone: [facility] Start: 12-20-2022 End: 11-08-[address] Rosa Maria Santacruz Work Phone: [facility] Work Phone: Start: 12-20-2022 End: 12-20-2022 Dr. Rosa Maria Santacruz Work Phone: [facility] Work Phone: Start: 12-19-2022 Non-patient / Non-visit Dr. Bonnie Santacruz Work Phone: [facility] Start: 12-19-2022 Dr. Rosa Maria leblanc Work Phone: [facility] Start: 12-18-2022 End: 12-18-[address] Rosa Maria Santacruz Work Phone: [facility] Work Phone: Start: 12-18-2022 End: 12-18-[address] Rosa Maria Santacruz Work Phone: [facility] Start: 12-18-2022 End: 12-18-2022 Dr. Rosa Maria Santacruz Work Phone: [facility] Work Phone: Start: 12-03-2022 End: 12-23-2022 Evaluation and management of inpatient Dr. Rosa Maria Santacruz Work Phone: [facility] Start: 12-03-2022 End: 12-23-2022 Dr. Rosa Maria Santacruz Work Phone: [facility] Start: 12-03-2022 Non-patient / Non-visit Dr. Bonnie Santacruz Work Phone: [facility] Start: 12-03-2022 Dr. Rosa Maria leblanc Work Phone: [facility] Work Phone: Start: 12-02-2022 Non-patient / Non-visit Dr. Bonnie Santacruz Work Phone: [facility] Start: 12-02-2022 Dr. Rosa Maria leblanc Work Phone: [facility] Work Phone: Start: 12-01-2022 Non-patient / Non-visit Dr. Bonnie Santacruz Work Phone: [facility] Start: 12-01-2022 Dr. Rosa Maria leblanc Work Phone: [facility] Work Phone: Start: 11-30-2022 Non-patient / Non-visit Dr. Bonnie Santacruz Work Phone: [facility] Start: 11-30-2022 Dr. Rosa Maria leblanc Work Phone: [facility] Work Phone: Start: 11-29-2022 Non-patient / Non-visit Dr. Bonnie Santacruz Work Phone: [facility] Start: 11-29-2022 Dr. Rosa Maria leblanc Work Phone: [facility] Start: 11-29-2022 Non-patient / Non-visit Dr. Bonnie Santacruz Work Phone: [facility] Start: 11-29-2022 End: 12-03-2022 Evaluation and management of inpatient Dr. RosaM aria Santacruz Work Phone: [facility] Start: 11-29-2022 End: 12-03-2022 Dr. Rosa Maria [facility] Work [facility]: Start: 10-17-2022 End: 10-17-[address] Rosa Maria Santacruz Work Phone: [facility] Work Phone: Start: 10-17-2022 End: 10-17-[address] Rosa Maria Santacruz Work Phone: [facility] Start: 10-17-2022 End: 10-17-2022 Dr. Rosa Maria Santacruz Work Phone: [facility] Work Phone: Start: 10-17-2022 End: 10-17-[address] Rosa Maria Santacruz Work Phone: [facility] Start: 10-17-2022 End: 10-17-2022 Dr. Rosa Maria Santacruz Work Phone: [facility] Work Phone: Start: 08-23-2022 End: 08-23-[address] Rosa Maria Santacruz Work Phone: [facility] Work Phone: Start: 08-23-2022 End: 08-23-[address] Rosa Maria Santacruz Work Phone: [facility] Start: 06-20-2022 End: 06-20-[address] Rosa Maria Santacruz Work Phone: [facility] Start: 06-05-2022 End: 06-05-[address] Rosa Maria Santacruz Work Phone: [facility] Start: 05-20-2022 End: 05-20-2022 Emergency department patient visit Dr. Rosa Maria Santacruz Work Phone: [facility] Start: 04-16-2022 End: 04-16-[address] Rosa Maria Santacruz Work Phone: [facility] Work Phone: Start: 04-16-2022 End: 04-16-[address] Rosa Maria Santacruz Work Phone: [facility] Start: 04-03-2022 End: 04-03-[address] Rosa Maria Santacruz Work Phone: [facility] Start: 03-27-[address] Rosa Maria faria Work Phone: [facility] Start: 10-02-2020 End: 10-07-2020 Evaluation and management of inpatient Roman Rivas Work Phone: [facility] Comment on above: Hydropneumothorax (P rimary Dx); Parapneumonic effusion; CKD (chronic kidney disease), stage IV (HCC); Macrocytic anemia; detention (current) use of antibiotics Start: 09-11-2020 End: 09-21-2020 Evaluation and management of inpatient Alessio Robertson Work Phone: [facility] Comment on above: Parapneumonic effusi on (Primary Dx) Procedures Date Procedure Procedure Detail Performing Clinician Start: 12-27-2024 Lap Robotic Inguinal Hernia (Left) Dr. Rosa Maria Santacruz MD Work Phone: Start: 12-16-2024 Calculation of international normalized ratio Dr. Rosa Maria Santacruz MD Work Phone: Start: 11-29-2024 Urine microalbumin/creatinine ratio measurement Dr. Rosa Maria Santacruz MD Work Phone: Comment on above: Previous reported result: 1639.6 mg/g CR EEdited by: LEEROY on 12/21/24:1117 AMENDED REPORT 12/21/24 1117 MALB:CREAT previously reported as: 1639.6 mg/g CRE Start: 11-18-2024 Computed tomography of abdomen and pelvis with contrast Dr. Rosa Maria Santacruz MD Work Phone: Start: 11-08-2024 Blood count smear mcrscp w/mnl difrntl wbc count Dr. Rosa Maria Santacruz MD Work Phone: Start: 11-08-[address] Rosa Maria faria MD Work Phone: Start: 11-08-2024 Mean corpuscular hemoglobin concentration determination Dr. Rosa Maria Santacruz MD Work Phone: Start: 11-08-2024 Nucleated red blood cell count procedure Dr. Rosa Maria Santacruz MD Work Phone: Start: 11-08-2024 Platelet mean volume determination Dr. Rosa Maria Santacruz MD Work Phone: Start: 11-08-2024 Blood count smear mcrscp w/mnl difrntl wbc count Dr. Rosa Maria Santacruz MD Work Phone: Start: 11-08-[address] Rosa Maria faria MD Work Phone: Start: 11-08-2024 Mean corpuscular hemoglobin concentration determination Dr. Rosa Maria Santacruz MD Work Phone: Start: 11-08-2024 Nucleated red blood cell count procedure Dr. Rosa Maria Santacruz MD Work Phone: Start: 11-08-2024 Platelet mean volume determination Dr. Rosa Maria Santacruz MD Work Phone: Start: 11-08-2024 Total iron binding capacity measurement Dr. Rosa Maria Santacruz MD Work Phone: Start: 10-06-[address] Rosa Maria Wallace Work Phone: Start: 10-06-2024 Total cholesterol:HDL ratio measurement Dr. Rosa Maria Santacruz MD Work Phone: Start: 11-12-2023 Measurement of renal function Dr. Rosa Maria bourgeois MD Work Phone: Comment on above: GFR Calc Start: 11-10-2023 Albumin/Globulin ratio Dr. Rosa Maria Wallace Work Phone: Start: 11-10-[address] Rosa Maria leblanc MD Work Phone: Start: 11-10-2023 Measurement of C-reactive protein using high sensitivity technique Dr. Rosa Maria Santacruz MD Work Phone: Comment on above: C-Reactive Protein (CRP) provides useful information for thediagnosis, therapy and monitoring of inflammatory processesand associated diseases. For the evaluation of Relative Riskfor Cardiovascular Disease, a High Sensitivity CRP (HSCRP)should be ordered. Start: 09-03-[address] Rosa Maria gamble Work Phone: Start: 09-03-2023 Investigation of transfusion reaction Dr. Rosa Maria Santacruz Work Phone: Start: 09-03-2023 Microbial culture, routine Dr. Rosa Maria austin Work Phone: Start: 09-03-[address] Rosa Maria Santacruz Work Phone: Start: 09-03-[address] Rosa Maria Santacruz Work Phone: Start: 06-24-2023 Measurement of occult blood in stool specimen using immunoassay Dr. Paco Norman Work Phone: Start: 06-24-[address] Paco Norman Work Phone: Start: 06-21-2023 Plain chest X-ray Dr. Paco Norman Work Phone: Start: 06-20-2023 Plain chest X-ray Dr. Paco Norman Work Phone: Start: 06-20-2023 Plain chest X-ray Dr. Paco Norman Work Phone: Start: 06-04-[address] Grey Norman Work Phone: Start: 06-04-2023 Investigation of transfusion reaction Dr. Paco Norman Work Phone: Start: 06-04-2023 Microbial culture, routine Dr. Paco Norman Work Phone: Start: 01-30-2023 Investigation of transfusion reaction Dr. Rosa Maria Santacruz Work Phone: Start: 01-30-2023 Microbial culture, routine Dr. Rosa Maria austin Work Phone: Start: 01-20-2023 Ct head/brain w/o contrast material Sergio Sofia [employer] G[employer] TECHNICIAN.BOAT REPAIRER Work Phone: Start: 01-06-2023 Antibody screen ELIDA MILLSSIENNA Comment on above: Order Comment: Specimen Type: BLOOD SPEC IMEN Ordering Facility: [facility] Address: [address] [place] [address] [place], [place] [id number] Performed By: #### T SCR #### [facility] CLIA [id number] [address] Start: 01-04-2023 History of coronary artery bypass grafting S/P CABG (coronary artery bypass graft) Azucena Vo [employer] GAME TECHNICIAN.BOAT REPAIRER Work Phone: Start: 01-03-2023 CT cervical spine without contrast Dr. Rosa Maria Santacruz Work Phone: Start: 01-03-2023 Plain chest X-ray Dr. Rosa Maria Santacruz Work Phone: Start: 01-03-2023 Plain x-ray of pelvis and lower extremity Dr. Rosa Maria Santacruz Work Phone: Start: 01-03-2023 CT of head without contrast Dr. Rosa Maria gamble Work Phone: Start: 12-24-2022 Investigation of transfusion reaction Dr. Rosa Maria Santacruz Work Phone: Start: 12-24-2022 Microbial culture, routine Dr. Rosa Maria austin Work Phone: Start: 12-22-2022 Plain X-ray of shoulder Dr. Rosa Maria Santacruz Work Phone: Start: 12-22-2022 CT of head without contrast Dr. Rosa Maria gamble Work Phone: Start: 12-20-[address] Rosa Maria austin Work Phone: Start: 12-17-2022 Measurement of occult blood in stool specimen using immunoassay Dr. Rosa Maria Santacruz Work Phone: Start: 12-10-2022 Plain x-ray of pelvis and lower extremity Dr. Rosa Maria Santacruz Work Phone: Start: 12-07-[address] Rosa Maria Santacruz Work Phone: Start: 12-06-2022 X-ray of lumbar spine, two or three views Dr. Rosa Maria Santacruz Work Phone: Start: 12-03-[address] Rosa Maria Santacruz Work Phone: Start: 12-02-[address] Rosa Maria Santacruz Work Phone: Start: 11-30-2022 Legionella pneumophila antigen assay Dr. Rosa Maria Santacruz Work Phone: Start: 11-30-2022 Streptococcus pneumoniae Antigen (M Dr. Rosa Maria Santacruz Work Phone: Start: 11-30-2022 Dr. Rosa Maria Santacruz Work Phone: Start: 11-29-2022 Bacteria identified in Blood by Culture Dr. Rosa Maria Santacruz Work Phone: Start: 11-29-2022 Dr. Rosa Maria Santacruz Work Phone: Start: 11-29-2022 X-ray of both feet Dr. Rosa Maria Santacruz Work Phone: Start: 11-29-2022 Plain chest X-ray Dr. Rosa Maria Santacruz Work Phone: Start: 05-17-2021 Measurement of occult blood in stool specimen using immunoassay Dr. Paco Norman Work Phone: Start: 05-16-2021 Allergen spec ige crude allergen extract each Dr. Rosa Maria Santacruz MD Work Phone: Start: 10-07-2020 Radiologic exam chest single view Kassandra barajas Work Phone: Start: 10-07-2020 Assay of magnesium Russell Oksana Work Phone: Start: 10-07-2020 Basic metabolic panel calcium total Russell Gandhi Work Phone: Start: 10-07-2020 Natriuretic peptide Russell Gandhi Work Phone: Start: 10-06-2020 Radiologic exam chest single view Kassandra A ziken Work Phone: Start: 10-06-2020 Assay of urine sodium Afshan Pfeiffer Work Phone: Start: 10-06-2020 Creatinine [facility] Work Phone: Start: 10-06-2020 EOSINOPHILS, URINE Afshan Pfeiffer Work Phone: Start: 10-06-2020 Albumin serum plasma/whole blood [facility] Work Phone: Start: 10-06-2020 Assay of magnesium Russell Gandhi Work Phone: Start: 10-06-2020 Assay of phosphorus inorganic [facility] Work Phone: Start: 10-06-2020 Basic metabolic panel calcium total Russell Gandhi Work Phone: Start: 10-05-2020 Ecg routine ecg w/least 12 lds w/i&r Macrina Alcazar Work Phone: Start: 10-05-2020 US Heart Transesophageal Pastranaluis daniel Gonzalez Work Phone: Start: 10-05-2020 Catheterization and angiography procedure details panel Zeina Gonzalez Work Phone: Start: 10-05-2020 Radiologic exam chest single view Kassandra A zizaki Work Phone: Start: 10-05-2020 Assay of magnesium Russell Gandhi Work Phone: Start: 10-05-2020 Basic metabolic panel calcium total Russell Gandhi Work Phone: Start: 10-04-2020 Radiologic exam chest single view Kassandra A ziken Work Phone: Start: 10-04-2020 Assay of magnesium Russell Gandhi Work Phone: Start: 10-04-2020 Basic metabolic panel calcium total Russell Gandhi Work Phone: Start: 10-04-2020 Natriuretic peptide Russell Gandhi Work Phone: Start: 10-03-2020 Perq drainage pleura insert cath w/imaging Jus Loomis Work Phone: Start: 10-03-2020 Ct thorax w/o contrast material Kassandra Joannheather haines Work Phone: Start: 10-03-2020 Albumin serum plasma/whole blood Russell Gandhi Work Phone: Start: 10-03-2020 Assay of folic acid serum Russell Gandhi Work Phone: Start: 10-03-2020 Assay of magnesium Russell Gandhi Work Phone: Start: 10-03-2020 Assay of thyroid stimulating hormone tsh Russell Gandhi Work Phone: Start: 10-03-2020 Assay of troponin quantitative Russell Martinez Work Phone: Start: 10-03-2020 Basic metabolic panel calcium total Russell Gandhi Work Phone: Start: 10-03-2020 Cyanocobalamin vitamin b-12 Russell Gandhi Work Phone: Start: 10-03-2020 Iron binding capacity Russell Gandhi Work Phone: Start: 10-03-2020 Lipid panel Russell Gandhi Work Phone: Start: 10-03-2020 Radiologic exam chest single view Russell Gandhi Work Phone: Start: 09-21-2020 Radiologic exam chest single view Sil Rausch Work Phone: Start: 09-21-2020 Radiologic exam chest single view Kylah Shalonda Work Phone: Start: 09-21-2020 Basic metabolic panel calcium total Kylah Shalonda Work Phone: Start: 09-21-2020 Blood count complete auto&auto difrntl wbc Kylah Liz Work Phone: Start: 09-20-2020 Radiologic exam chest single view Kylah Liz Work Phone: Start: 09-20-2020 Basic metabolic panel calcium total Kylah Liz Work Phone: Start: 09-20-2020 Blood count complete auto&auto difrntl wbc Kylah Liz Work Phone: Start: 09-19-2020 Ecg routine ecg w/least 12 lds w/i&r Kylah Liz Work Phone: Start: 09-19-2020 OPERATIVE REPORT 3m Scanning Start: 09-19-2020 Radiologic exam chest single view Kylah Liz Work Phone: Start: 09-19-2020 Level iv surg pathology gross&microscopic exam Kassandra Davidson Work Phone: Start: 09-19-2020 Cul prsmptv pthgnc organism scrn w/colony estimj Kassandraloretta Davidson Work Phone: Start: 09-19-2020 Culture fngi mold/yeast prsmptv oth xcpt blood Kassandra Davidson Work Phone: Start: 09-19-2020 Culture tubercle/oth acid-fast bacilli any isol Kassandra Davidson Work Phone: Start: 09-19-2020 Smr prim src fluorescent&/afs bct fngi parasit Kassandra Davidson Work Phone: Start: 09-19-2020 Radiologic exam chest single view Kylah Liz Work Phone: Start: 09-19-2020 Basic metabolic panel calcium total Kylah Liz Work Phone: Start: 09-19-2020 Blood count complete auto&auto difrntl wbc Kylah Liz Work Phone: Start: 09-19-2020 Blood typing serologic abo Gilbert Henry Work Phone: Start: 09-19-2020 MANUAL DIFFERENTIAL Gilbert Henry Work Phone: Start: 09-19-2020 PROTIME/INR & PTT Kylah Liz Work Phone: Start: 09-18-2020 Radiologic exam chest single view Kylah Liz Work Phone: Start: 09-18-2020 Blood count complete automated Gilbert Henry Work Phone: Start: 09-18-2020 Renal function panel Delmy P Elidacassandra Work Phone: Start: 09-17-2020 Blood count complete auto&auto difrntl wbc Kylah Liz Work Phone: Start: 09-17-2020 Radiologic exam chest single view Kylah Liz Work Phone: Start: 09-16-2020 Radiologic exam chest single view Kylah Liz Work Phone: Start: 09-16-2020 Ecg routine ecg w/least 12 lds w/i&r Inderpartap S Voltaixangiureisra Work Phone: Start: 09-16-2020 ADD ON LAB TEST Inderpartap S Voltaixngureh Work Phone: Start: 09-16-2020 Assay of magnesium Erasmo Schrader Work Phone: Start: 09-16-2020 Basic metabolic panel calcium total Erasmo Raciel Work Phone: Start: 09-16-2020 Protein xcpt refractometry serum plasma/whl bld Erasmo Lopezin Work Phone: Start: 09-15-2020 DIFFERENTIAL, BODY FLUID Sha Downs Work Phone: Start: 09-15-2020 Glucose body fluid other than blood Sha Downs Work Phone: Start: 09-15-2020 Lactate dehydrogenase ldh Sha Downs Work Phone: Start: 09-15-2020 Cell count misc body fluids w/differential count Sha Downs Work Phone: Start: 09-15-2020 Radiologic exam chest single view Kylah Liz Work Phone: Start: 09-15-2020 Basic metabolic panel calcium total Erasmo Raciel Work Phone: Start: 09-15-2020 Blood count hemoglobin Alessio Robertson Work Phone: Start: 09-14-2020 Radiologic exam chest single view Kylah Liz Work Phone: Start: 09-14-2020 Iaad ia histoplasm capsulatum Sha turpin Work Phone: Start: 09-14-2020 Basic metabolic panel calcium total Alessio Tuckeravanan Work Phone: Start: 09-13-2020 Ct thorax w/o contrast material Kylah robbins Work Phone: Start: 09-13-2020 Radiologic exam chest single view Kylah Liz Work Phone: Start: 09-13-2020 Assay of folic acid serum Alessiogiuliana Robertson Work Phone: Start: 09-13-2020 Assay of thyroid stimulating hormone tsh Alessio Tuckeravanan Work Phone: Start: 09-13-2020 Basic metabolic panel calcium total Alessio Marcelo Work Phone: Start: 09-13-2020 Blood count complete auto&auto difrntl wbc Alessio Robertson Work Phone: Start: 09-13-2020 C-reactive protein Alessio Tuckeravanan Work Phone: Start: 09-13-2020 Cyanocobalamin vitamin b-12 Alessio Tuckeravanan Work Phone: Start: 09-13-2020 Hemoglobin glycosylated a1c Alessio Tuckeravanan Work Phone: Start: 09-13-2020 Procalcitonin (pct) Alessio Robertson Work Phone: Start: 09-13-2020 Cytopath fl nongyn, sm/fltr Kylah Liz Work Phone: Start: 09-12-2020 Iaad ia mult step method nos each organism Inderpartap S Phangureh Work Phone: Start: 09-12-2020 STREP PNEUMONIAE ANTIGEN [employer] [facility] Work Phone: Start: 09-12-2020 MRSA BY PCR Anna Baldwin Work Phone: Start: 09-12-2020 Chest x-ray 1 view frontal Kylah Liz Work Phone: Start: 09-12-2020 Cul prsmptv pthgnc organism scrn w/colony estimj Alessio Robertson Work Phone: Start: 09-12-2020 Perq drainage pleura insert cath w/imaging Kylah Liz Work Phone: Start: 09-12-2020 PROTIME/INR & PTT Kylah Liz Work Phone: Start: 09-12-2020 Sedimentation rate rbc automated Sunday Marcelo Work Phone: Start: 09-12-2020 Us retroperitoneal real time w/image limited [facility]derpart[facility] Phang[facility] Work Phone: Start: 09-12-2020 Radiologic exam chest single view Kylah Liz Work Phone: Start: 09-12-2020 Ct thorax w/o contrast material Inderpar tap S Phangureh Work Phone: Start: 09-12-2020 Ecg routine ecg w/least 12 lds w/i&r [facility]der[facility] Phang[facility] Work Phone: Start: 09-12-2020 Assay of urea nitrogen urine [facility]derpart[employer] [facility] Phang[facility] Work Phone: Start: 09-12-2020 Assay of urine sodium Inderpart[employer] S Phangureh Work Phone: Start: 09-12-2020 Creatinine other source [facility]derpart[employer] S Phangureh Work Phone: Start: 09-12-2020 Urnls dip stick/tablet rgnt auto w/o microscopy Inderpartap S Evettengureisra Work Phone: Start: 09-11-2020 Assay of lactate Inderpartap S Phangureisra Work Phone: Start: 09-11-2020 Assay of magnesium Inderpartap S Phangureisra Work Phone: Start: 09-11-2020 Assay of phosphorus inorganic Inderkatinaa p S Voltaixjennifer Work Phone: Start: 09-11-2020 Blood count complete auto&auto difrntl wbc [facility]der[facility] S Evettengureisra Work Phone: Start: 09-11-2020 Comprehensive metabolic panel Inderkatinaa p S Voltaixngureisra Work Phone: Start: 09-11-2020 Culture bacterial blood aerobic w/id isolates Inderpart[facility] S Evettengureh Work Phone: Start: 09-11-2020 CULTURE, BLOOD 1 Inderpartap S Evettengureisra Work Phone: Start: 09-11-2020 Procalcitonin (pct) [facility]der[facility] S Phang[facility] Work Phone: Start: 09-11-2020 Ecg routine ecg w/least 12 lds w/i&r Inderpartap S Evettengureisra Work Phone: Start: 01-28-2017 History of coronary artery bypass grafting Aortocoronary bypass status Dayne ARITA Comment on above: CABG x2- ZARAGOZA to LAD, Aorto post descend ing coronary artery to revers SVG 02/12/17 Start: 06-30-2008 History of placement of stent for coronary artery disease Status post insertion of drug-eluting stent into right coronary artery for coronary artery disease Dr. Rosa Maria Santacruz Work Phone: Comment on above: atherectomy to ostial RCA, LINDY to Prox/M id RCA 04/2009 Bacteria identified in Blood by Culture Dr. Rosa Maria Santacruz Work Phone: Bacteria identified in Blood by Culture Dr. Rosa Maria Santacruz Work Phone: History of repair of inguinal hernia S/P right inguinal hernia repair Dr. Rosa Maria Santacruz Work Phone: Measurement of occul t blood in stool specimen using immunoassay Dr. Rosa Maria Santacruz Work Phone: SARS-CoV-2 & FLU Antigen (Rapid) Dr. Rosa Maria Santacruz Work Phone: Plan of Treatment Date Care Activity Detail Author Start: 01-08-2026 DIABETES SCREEN DIABETES SCREEN [facility] Start: 01-08-2026 Diabetes Screening Diabetes Screening [facility] Start: 12-27-2024 Anesthesia intraperitoneal lower abd w/laps nos ANESTH SURG LOWER ABDOMEN [facility] Start: 12-27-2024 Laparoscopy surg rpr initial inguinal hernia LAP ING HERNIA REPAIR INIT [facility] Start: 12-27-[address] [facility] Start: 11-18-2024 Iv infusion therapy prophylaxis/dx ea hour [facility] Start: 11-18-2024 Iv infusion therapy/prophylaxis /dx 1st to [address] [facility] Start: 11-18-2024 Following clinical pathway protocol [facility] Start: 11-08-2024 [facility] Start: 11-08-2024 [facility] Start: 11-08-2024 [facility] Start: 11-10-2023 [facility] Start: 11-10-2023 [facility] Start: 07-02-[address] [facility] Start: 07-01-[address] [facility] Start: 06-30-[address] [facility] Start: 06-29-[address] [facility] Start: 06-28-[address] [facility] Start: 06-27-[address] [facility] Start: 06-26-[address] [facility] Start: 06-25-[address] [facility] Start: 06-24-[address] [facility] Start: 06-24-2023 Antibody to gastric parietal cell measurement [facility] Start: 06-24-2023 [facility] Start: 06-24-2023 Referral to gastroenterology service [facility] Start: 06-24-2023 Inhalation therapy procedure [facility] Start: 06-23-2023 Referral to gastroenterology service [facility] Start: 06-21-[address] [facility] Start: 06-21-2023 End: 06-21-2023 Speech therapy assessment [facility] Start: 06-20-[address] [facility] Start: 06-20-2023 Following clinical pathway protocol [facility] Start: 06-20-2023 Consultation for treatment [facility] Start: 06-20-2023 Referral to personal lines sales rep [facility] Start: 06-20-2023 Referral to harvest worker fruit [facility] Start: 06-20-[address] [facility] Start: 06-20-2023 Assessment of risk of venous thromboembolism [facility] Start: 06-20-2023 Documentation procedure [facility] Start: 06-20-2023 Insertion of catheter into peripheral vein [facility] Start: 06-20-2023 Measuring intake and output [facility] Start: 06-20-[address] [facility] Start: 06-20-2023 Providing care according to standard [facility] Start: 06-20-2023 Referral to occupational therapist [facility] Start: 06-20-[address] [facility] Start: 06-20-2023 Plain chest X-ray [facility] Start: 06-20-2023 XR Chest PA and Lateral [facility] Start: 06-20-2023 Hospital admission, emergency, from emergency room, medical nature [facility] Start: 06-20-[address] [facility] Start: 06-20-2023 End: 06-20-2023 [facility] Start: 06-20-2023 [facility] Start: 06-04-2023 Microbial culture, routine Wound Culture [facility] Start: 02-28-2023 Covid-19 Vaccine () Covid-19 Vaccine () [facility] Start: 02-28-2023 Influenza vaccination [facility] Start: 01-01-[address] [facility] Start: 12-25-[address] [facility] Start: 12-24-2022 Microbial culture, routine Wound Culture [facility] Start: 12-24-2022 [facility] Start: 12-23-2022 Development of care plan [facility] Start: 12-23-[address] [facility] Start: 12-22-2022 Following clinical pathway protocol [facility] Start: 12-20-2022 Egd insert guide wire dilator passage esophagus [facility] Start: 12-20-2022 Egd transoral biopsy single/multiple [facility] Start: 12-20-2022 Egd transoral control bleeding any method [facility] Start: 12-20-[address] [facility] Start: 12-19-2022 Catheterization of vein [facility] Start: 12-18-2022 Administration of blood product [facility] Start: 12-18-2022 [facility] Start: 12-17-2022 Referral to gastroenterology service [facility] Start: 12-17-2022 Administration of blood product [facility] Start: 12-11-[address] [facility] Start: 12-10-[address] [facility] Start: 12-10-2022 Consultation for treatment [facility] Start: 12-06-2022 [facility] Start: 12-06-2022 [facility] Start: 12-06-2022 Application of ice collar, cap or bag [facility] Start: 12-05-2022 [facility] Start: 12-05-[address] [facility] Start: 12-05-2022 [facility] Start: 12-04-2022 Development of care plan [facility] Start: 12-04-2022 Following clinical pathway protocol [facility] Start: 12-04-2022 Developing a treatment plan [facility] Start: 12-04-2022 [facility] Start: 12-03-2022 Referral to harvest worker fruit [facility] Start: 12-03-[address] [facility] Start: 12-03-[address] [facility] Start: 12-03-2022 Measuring intake and output [facility] Start: 12-03-2022 Patient referral to dietitian [facility] Start: 12-03-2022 Referral to occupational therapist [facility] Start: 12-03-[address] [facility] Start: 12-03-2022 Vital signs measurements [facility] Start: 12-03-2022 [facility] Start: 12-03-[address] [facility] Start: 12-02-[address] [facility] Start: 11-30-2022 [facility] Start: 11-30-2022 Referral to harvest worker fruit [facility] Start: 11-29-[address] [facility] Start: 11-29-2022 Thyroid stimulating hormone measurement [facility] Start: 11-29-2022 Vitamin B12 measurement [facility] Start: 11-29-2022 Following clinical pathway protocol [facility] Start: 11-29-2022 Application of intermittent pneumatic compression device [facility] Start: 11-29-2022 Assessment of risk of venous thromboembolism [facility] Start: 11-29-2022 Bacteria identified in Sputum by Culture [facility] Start: 11-29-2022 Consultation for treatment [facility] Start: 11-29-2022 Documentation procedure [facility] Start: 11-29-2022 Insertion of catheter into peripheral vein [facility] Start: 11-29-2022 Legionella pneumophila Ag [Presence] in Urine [facility] Start: 11-29-2022 Measuring intake and output [facility] Start: 11-29-[address] [facility] Start: 11-29-[address] [facility] Start: 11-29-2022 Providing care according to standard [facility] Start: 11-29-2022 Provision of activity privileges [facility] Start: 11-29-2022 Referral to occupational therapist [facility] Start: 11-29-[address] [facility] Start: 11-29-2022 Streptococcus pneumoniae antigen assay [facility] Start: 11-29-2022 [facility] Start: 11-29-[address] [facility] Start: 11-29-[address] [facility] Start: 11-29-2022 End: 11-29-[address] [facility] Start: 11-29-2022 [facility] Start: 06-30-2022 ADVANCE DIRECTIVE DISCUSSION ADVANCE DIRECTIVE DISCUSSION [facility] Start: 06-30-2022 DEPRESSION ASSESSMENT DEPRESSION ASSESSMENT [facility] Start: 06-05-2022 Evaluation of diagnostic study results [facility] Start: 10-07-2021 Creatinine measurement Creatinine monitoring [facility] Work Phone: Start: 10-07-2021 Potassium monitoring Potassium monitoring [facility] Work Phone: Start: 10-03-2021 Lipid panel Lipid screen [facility] Work Phone: Start: 10-03-2021 TSH Qn TSH testing [facility] Work Phone: Start: 09-21-2021 Creatinine measurement Creatinine monitoring [facility] Work Phone: Start: 09-21-2021 Potassium monitoring Potassium monitoring [facility] Work Phone: Start: 09-13-2021 TSH Qn TSH testing [facility] Work Phone: Start: 08-15-2021 COVID-19 VACCINE (4 - Booster for Moderna series) COVID-19 VACCINE (4 - Booster for Moderna series) [facility] Start: 02-28-2021 Influenza vaccination Flu vaccine (Season Ended) [facility] Work Phone: Start: 10-09-2020 End: 10-07-2021 Basic metabolic 2000 panel Basic Metabolic Panel Lab Routine CKD (chronic kidney disease), stage IV (HCC) 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) use of antibiotics Expected: 10/09/2020, Expires: 10/07/2021 [facility] Work Phone: Comment on above: Expected: 10/09/2020, Expires: 2 Start: 10-09-2020 End: 10-07-2021 CBC Auto Differential CBC Auto Differential Lab Routine Macrocytic anemia Expected: 10/09/2020, Expires: 10/07/2021 [facility] Work Phone: Comment on above: Expected: 10/09/2020, Expires: 2 Start: 10-09-2020 End: 10-07-2021 XR CHEST STANDARD (2 VW) XR CHEST STANDARD (2 VW) Imaging Routine Hydropneumothorax Parapneumonic effusion Expected: 10/09/2020, Expires: 10/07/2021 [facility] Work Phone: Comment on above: Expected: 10/09/2020, Expires: 2 Start: 09-25-2020 COVID-19 Vaccine (2 - Moderna 2-dose series) COVID-19 Vaccine (2 - Moderna 2-dose series) [facility] Work Phone: Start: 09-15-2020 Annual Wellness Visit (AWV) Annual Wellness Visit (AWV) [facility] Work Phone: Start: 02-29-2020 Influenza vaccination Flu vaccine (#1) [facility] Work Phone: Start: 2006 Pneumococcal 65+ years Vaccine (2 of 2 - PPSV23) Pneumococcal 65+ years Vaccine (2 of 2 - PPSV23) [facility] Work Phone: Start: 2001 RSV Vaccine (1 - 1-dose 60+ series) RSV Vaccine (1 - 1-dose 60+ series) [facility] Start: 1991 Shingles Vaccine (1 of 2) Shingles Vaccine (1 of 2) [facility] Work Phone: Start: 1960 DTaP/Tdap/Td vaccine (1 - Tdap) DTaP/Tdap/Td vaccine (1 - Tdap) [facility] Work Phone: Start: 1960 SHINGRIX VACCINE (1 of 2) SHINGRIX VACCINE (1 of 2) [facility] Start: 1960 Urine microalbumin profile [facility] Start: 1959 Hepatitis B surface antibody level LDL CHOLESTEROL [facility] Start: 1959 SPIROMETRY SPIROMETRY [facility] Start: 1951 Lipid panel Lipid screen [facility] Work Phone: Start: 1947 PNEUMOCOCCAL: 65+ (1 - PCV) PNEUMOCOCCAL: 65+ (1 - PCV) [facility] Start: 1941 Hepatitis C screening Hepatitis C screen [facility] Work Phone: Acapella Acapella Respira tory Care Routine Daily until discontinued starting 09/12/2020 [facility] Work Phone: Comment on above: Daily until discontinued starting 2020 End: 09-19-2020 AFB Stain AFB Stain Microbiology Routine Once for 1 Occurrences starting 09/19/2020 until 09/19/2020 [facility] Work Phone: Comment on above: Once for 1 Occurrences starting 09/20/19 21 until 09/19/2020 AFB Stain AFB Stain Microb iology Routine 09/19/2020 9:10 AM EDT [facility] Work Phone: Anion gap measurement [facility] Anion gap measurement [facility] Anion gap measurement [facility] Bacteria identified in Blood by Culture Blood Culture [facility] End: 09-13-2020 Basic metabolic 2000 panel Basic Metabolic Panel Lab Routine Tomorrow AM for 1 Occurrences starting 09/13/2020 until 09/13/2020 [facility] Work Phone: Comment on above: Tomorrow AM for 1 Occurrences starting 0 09/13/2020 until 09/13/2020 End: 09-15-2020 Basic metabolic 2000 panel Basic Metabolic Panel Lab Routine Tomorrow AM for 1 Occurrences starting 09/15/2020 until 09/15/2020 [facility] Work Phone: Comment on above: Tomorrow AM for 1 Occurrences starting 0 09/15/2020 until 09/15/2020 Basic metabolic 2000 panel S [facility] Work Phone: Comment on above: Daily until discontinued starting 2020, 3 completed Bilirubin measurement, urine [facility] End: 10-09-2020 Brain Natriuretic Peptide Brain Natriuretic Peptide Lab Routine Every Third Day for 3 Occurrences starting 10/03/2020 until 10/09/2020, 1 completed [facility] Work Phone: Comment on above: Every Third Day for 3 Occurrences starti ng 10/03/2020 until 10/09/2020, 1 completed Brain Natriuretic Peptide Brain Natriuretic Peptide Lab Routine 10/04/2020 2:11 AM EDT [facility] Work Phone: BUN/Creatinine ratio [facility] BUN/Creatinine ratio [facility] BUN/Creatinine ratio [facility] C reactive protein [Mass/volume] in Serum or Plasma [facility] Calcium [Mass/volume ] in Serum or Plasma [facility] Calcium [Mass/volume ] in Serum or Plasma [facility] Calcium [Mass/volume ] in Serum or Plasma [facility] Carbon dioxide, tota l [Moles/volume] in Serum or Plasma [facility] Carbon dioxide, tota l [Moles/volume] in Serum or Plasma [facility] Carbon dioxide, tota l [Moles/volume] in Serum or Plasma [facility] Carcinoembryonic Ag [Mass/volume] in Serum or Plasma [facility] Cardiac event recording [facility] CBC Auto Differential CBC Auto D ifferential Lab Routine Daily until discontinued starting 09/19/2020, 3 completed [facility] Work Phone: Comment on above: Daily until discontinued starting 2020, 3 completed CBC W Auto Different ial panel - Blood [facility] CBC W Auto Different ial panel - Blood [facility] CBC W Auto Different ial panel - Blood [facility] CBC W Auto Different ial panel - Blood [facility] Chloride [Moles/volu me] in Serum or Plasma [facility] Chloride [Moles/volu me] in Serum or Plasma [facility] Chloride [Moles/volu me] in Serum or Plasma [facility] Cobalamin (Vitamin B 12) [Mass/volume] in Serum or Plasma [facility] Comprehensive metabo lic 2000 panel - Serum or Plasma [facility] Creatinine [Moles/vo lume] in Serum or Plasma [facility] Creatinine [Moles/vo lume] in Serum or Plasma [facility] Creatinine [Moles/vo lume] in Serum or Plasma [facility] Culture with Smear, Acid Fast Bacillius Culture with Smear, Acid Fast Bacillius Microbiology Routine 09/19/2020 9:10 AM EDT [facility] Work Phone: Culture, Anaerobic a nd Aerobic Culture, Anaerobic and Aerobic Microbiology STAT 09/19/2020 9:10 AM EDT [facility] Work Phone: Culture, Fungus Culture, Fungus Microbiology Routine 09/19/2020 9:10 AM EDT [facility] Work Phone: Electrocardiographic procedure [facility] Erythrocyte sediment ation rate [facility] Ferritin [Mass/volum e] in Serum or Plasma [facility] Ferritin [Mass/volum e] in Serum or Plasma [facility] Ferritin [Mass/volum e] in Serum or Plasma [facility] Ferritin [Mass/volum e] in Serum or Plasma [facility] Ferritin [Mass/volum e] in Serum or Plasma [facility] Folate [Mass/volume] in Serum or Plasma [facility] Folate [Moles/volume ] in Serum or Plasma [facility] Fungus identified in Unspecified specimen by Culture [facility] Gastrin [Mass/volume ] in Serum or Plasma [facility] Gliadin peptide IgA Ab [Units/volume] in Serum [facility] Gliadin peptide IgG Ab [Units/volume] in Serum [facility] Glucose [Mass/volume ] in Serum or Plasma [facility] Glucose [Mass/volume ] in Serum or Plasma [facility] Glucose [Mass/volume ] in Serum or Plasma [facility] Hematocrit [Volume F raction] of Blood [facility] Hematocrit [Volume F raction] of Blood [facility] Hematocrit [Volume F raction] of Blood [facility] Hemoglobin [Mass/vol ume] in Blood [facility] Hemoglobin [Mass/vol ume] in Blood [facility] Hemoglobin [Mass/vol ume] in Blood [facility] Hemoglobin [Presence ] in Urine [facility] Imaging of liver [facility] Iron [Mass/mass] in Unspecified specimen [facility] Iron and Iron bindin g capacity panel - Serum or Plasma [facility] Iron and Iron bindin g capacity panel - Serum or Plasma [facility] Iron and Iron bindin g capacity panel - Serum or Plasma [facility] Iron and Iron bindin g capacity panel - Serum or Plasma [facility] Iron and Iron bindin g capacity panel - Serum or Plasma [facility] Iron saturation [Mas s Fraction] in Serum or Plasma [facility] Lactate dehydrogenas e measurement [facility] Lactate dehydrogenas e measurement [facility] Lactate dehydrogenas e measurement [facility] Lactate dehydrogenas e measurement [facility] Leukocytes [#/volume ] in Blood [facility] Leukocytes [#/volume ] in Blood [facility] Leukocytes [#/volume ] in Blood [facility] Magnesium measurement [facility] Mean corpuscular hem oglobin concentration determination [facility] Mean corpuscular hem oglobin concentration determination [facility] Mean corpuscular hem oglobin concentration determination [facility] Mean corpuscular hem oglobin determination [facility] Mean corpuscular hem oglobin determination [facility] Mean corpuscular hem oglobin determination [facility] Measurement of immunoglobulin A in serum specimen [facility] Measurement of keton es in urine using dipstick [facility] Measurement of renal function [facility] Measurement of renal function [facility] Measurement of renal function [facility] Microscopic urinalysis [facility] Nebulizer therapy [facility] Work Phone: Comment on above: 0600, 1000, 1400, 1800, 2200 until disco ntinued starting 09/11/2020 4X Daily until disco ntinued starting 09/19/2020 Neutrophil count [facility] Neutrophil count [facility] Neutrophil count [facility] Neutrophil percent differential count [facility] Neutrophil percent differential count [facility] Neutrophil percent differential count [facility] Oxygen therapy [[facility] Data Set] [facility] Work Phone: Comment on above: Daily until discontinued starting 2020 Daily until disconti nued starting 10/02/2020 Daily until disconti nued starting 10/04/2020 Daily until disconti nued starting 10/05/2020 Patient Education [facility] Work Phone: Patient referral [facility] Work Phone: pH of Urine [facility] Platelets [#/volume] in Blood [facility] Platelets [#/volume] in Blood [facility] Platelets [#/volume] in Blood [facility] Potassium [Moles/vol ume] in Serum or Plasma [facility] Potassium [Moles/vol ume] in Serum or Plasma [facility] Potassium [Moles/vol ume] in Serum or Plasma [facility] Red blood cell count [facility] Red blood cell count [facility] Red blood cell count [facility] Red cell distributio n width determination [facility] Red cell distributio n width determination [facility] Red cell distributio n width determination [facility] Serum inorganic phos phate measurement [facility] Sodium [Moles/volume ] in Serum or Plasma [facility] Sodium [Moles/volume ] in Serum or Plasma [facility] Sodium [Moles/volume ] in Serum or Plasma [facility] Specific gravity of Urine [facility] Tissue transglutamin ase IgA Ab [Units/volume] in Serum [facility] Tissue transglutamin ase IgG Ab [Units/volume] in Serum [facility] Urea nitrogen [Mass/ volume] in Serum or Plasma [facility] Urea nitrogen [Mass/ volume] in Serum or Plasma [facility] Urea nitrogen [Mass/ volume] in Serum or Plasma [facility] Urinalysis, blood, qualitative [facility] Urine dipstick for glucose [facility] Urine dipstick for l eukocyte esterase [facility] Urine dipstick for nitrite [facility] Urine dipstick for protein [facility] Urine examination [facility] Urine microscopy: ep ithelial cells [facility] Urine Microscopy: wh ite cells [facility] Urobilinogen [Presen ce] in Urine [facility] Vitamin B12 measurement [facility] XR CHEST PORTABLE XR CHEST [facility] BLE Imaging Routine Daily until discontinued starting 09/13/2020, 9 completed [facility] Work Phone: Comment on above: Daily until discontinued starting 2020, 9 completed [facility] Immunizations Immunization Date Immunization Notes Care Provider Fa cility 06-20-2021 Gómez (Moderna) Dr. Rosa Maria gamble Work Phone: [facility] 09-25-2020 Evelyneid (Moderna) Dr. Rosa Maria gamble Work Phone: [facility] 08-28-2020 Evelyneid (Moderna) Dr. Rosa Maria gamble Work Phone: [facility] 06-20-2015 pneumococcal conjuga te vaccine, [address] Rosa Maria Santacruz Work Phone: [facility] 09-30-2006 pneumococcal polysaccharide vaccine, [address] Rosa Maria Santacruz Work Phone: [facility] Payers Date Payer Category Payer Self-pay [id number] 2015 Medicare [id number] 2015 Unknown [id number] 2015 Unknown [facility] [id number] 2015-Present [phone] [address] [place] [address] Indemnity [id number] 2006 Medicare [id number] 2006 Medicare MEDICARE MEDICAR E A AND B [id number] 2006-Present [phone] [place] [address] Medicare [id number] 2006 Medicare [id number] 1941 Unknown [id number] [id number] 7 Unknown [id number] 2.16.840.1.217537.3.579.2.46 2 Unknown [id number] 2.16.840.1.359519.3.579.2.46 2 Unknown [id number] 2.16.840.1.795347.3.579.2.46 2 Unknown [id number] 2.16.840.1.518819.3.579.2.46 2 Unknown [id number] 2.16.840.1.814210.3.579.2.46 2 Unknown [id number] 2.16.840.1.010468.3.579.2.46 2 Unknown [id number] 2.16.840.1.851961.3.579.2.46 2 Unknown [id number] 2.16.840.1.767706.3.579.2.46 2 Unknown [id number] 2.16.840.1.065681.3.579.2.46 2 Unknown [id number] 2.16.840.1.000343.3.579.2.46 2 Unknown [id number] 2.16.840.1.246415.3.579.2.46 2 Unknown [id number] 2.16.840.1.699630.3.579.2.46 2 Unknown [id number] 2.16.840.1.884235.3.579.2.46 2 Unknown [id number] 2.16.840.1.010058.3.579.2.46 2 Unknown [id number] 2.16.840.1.892379.3.579.2.46 2 Unknown [id number] 2.16.840.1.189306.3.579.2.46 2 Unknown [id number] 2.16.840.1.206205.3.579.2.46 2 Social History Date Type Detail Facility Start: 09-20-2020 End: 12-14-2024 Tobacco smoking status NHIS Former smoker [facility] Work Phone: Start: 09-20-2020 End: 01-04-2023 Alcohol intake Current drinker of alcohol (finding) [facility] Work Phone: Start: 09-13-2020 History SDOH Alcohol Frequency 5 [facility] Work Phone: Start: 09-13-2020 History SDOH Alcohol Std Drinks 2 [employer] Work Phone: Start: 09-12-2020 History SDOH Alcohol Binge 99 [facility] Work Phone: Start: 09-13-2020 Alcohol Comment 4 shots of bourbon per day [employer] Work Phone: Start: 1940 Sex Assigned At Not on file [employer] Work Phone: Exposure to SARS-CoV -2 (event) Not sure [employer] Work Phone: Start: 12-03-2021 End: 11-10-2023 Tobacco smoking status NHIS Unknown if ever smoked [facility] Start: 10-02-[address] [facility] Start: 02-16-2016 Spouse/ Significant Other [facility] Start: 11-02-[address] [facility] Start: 1940 Sex Assigned At Male [facility] History of tobacco use Current smoker [facility] Work Phone: Start: 01-04-2023 End: 01-22-2023 History of Social function [facility] Start: 01-04-2023 End: 01-22-2023 Tobacco use panel [facility] How hard is it for y ou to pay for the very basics like food, housing, medical care, and heating Not very hard [facility] (I/We) worried wheth er (my/our) food would run out before (I/we) got money to buy more. Never true [facility] In the past 12 month s, has lack of transportation kept you from medical appointments or from getting medications? No [facility] In the past 12 month s, was there a time when you were not able to pay the mortgage or rent on time? No [facility] Start: 09-20-2024 End: 10-11-2024 Sex Male (finding) [facility] Medical Equipment Procedure Code Equipment Code Equipment Origin al Text Equipment Identifier Dates MESH,PRO ENGLISH FACULTY MEMBER [id number] FDA Start: 07-26-2021 MESH,PRO ENGLISH FACULTY MEMBER [id number] FDA Start: 07-26-2021 MESH,PRO ENGLISH FACULTY MEMBER [id number] FDA Start: 07-26-2021 MESH,PRO ENGLISH FACULTY MEMBER [id number] FDA Start: 07-26-2021 MESH,PRO ENGLISH FACULTY MEMBER [id number] FDA Start: 07-26-2021 MESH,PRO ENGLISH FACULTY MEMBER [id number] FDA Start: 07-26-2021 MESH,PRO ENGLISH FACULTY MEMBER [id number] FDA Start: 07-26-2021 MESH,PRO ENGLISH FACULTY MEMBER [id number] FDA Start: 07-26-2021 MESH,PRO ENGLISH FACULTY MEMBER [id number] FDA Start: 07-26-2021 FDA Start: 07-26-2021 Nail Tfn-Advance d 10mm 130d Short Gold Green Iverson Ti-15mo 170mm - [id number] Start: 01-04-2023 Screw 5mm 4.3mm T25 Full Thread Titanium 34mm Bone Lock Self Tap Blunt Tip - [id number] Start: 01-04-2023 FDA Start: 07-26-2021 FDA Start: 07-26-2021 FDA Start: 07-26-2021 FDA Start: 07-26-2021 FDA Start: 07-26-2021 FDA Start: 07-26-2021 MESH,PRO ENGLISH FACULTY MEMBER [id number] FDA Start: 07-26-2021 FDA Start: 07-26-2021 FDA Start: 07-26-2021 FDA Start: 07-26-2021 FDA Start: 07-26-2021 FDA Start: 07-26-2021 FDA Start: 07-26-2021 FDA Start: 07-26-2021 FDA Start: 07-26-2021 MESH,PRO ENGLISH FACULTY MEMBER [id number] FDA Start: 07-26-2021 MESH,PRO ENGLISH FACULTY MEMBER [id number] FDA Start: 07-26-2021 MESH,PRO ENGLISH FACULTY MEMBER [id number] FDA Start: 07-26-2021 MESH,PRO ENGLISH FACULTY MEMBER [id number] FDA Start: 07-26-2021 MESH,PRO ENGLISH FACULTY MEMBER [id number] FDA Start: 07-26-2021 MESH,PRO ENGLISH FACULTY MEMBER [id number] FDA Start: 07-26-2021 MESH,PRO ENGLISH FACULTY MEMBER [id number] FDA Start: 07-26-2021 MESH,PRO ENGLISH FACULTY MEMBER [id number] FDA Start: 07-26-2021 FDA Start: 07-26-2021 MESH,PRO ENGLISH FACULTY MEMBER [id number] FDA Start: 07-26-2021 MESH,PRO ENGLISH FACULTY MEMBER [id number] FDA Start: 12-27-2024 Goals Date Patient Goal Desired Activity /State Functional Status Date Assessment Result Facility 12-27-2024 Functional status Ambulates;Bathroom Priv ilege [facility] Work Phone: 06-25-2023 Functional status Chair [facility] Work Phone: 12-23-2022 Functional status Bedrest [facility] Work Phone: 12-22-2022 Functional status With Assist of 2 [facility] Work Phone: 12-21-2022 Functional status Tolerates Activity Well [facility] Work Phone: 12-18-2022 Functional status Chair [facility] Work Phone: 12-03-2022 Functional status Ambulates;Bedside Commo de [facility] Work Phone: Mental Status Date Assessment Result Facility 12-27-2024 Cognitive function Voice/Name [facility] Work Phone: 11-18-2024 Cognitive function Voice/Name [facility] Work Phone: 11-08-2024 Cognitive function Awake;Alert;A ppropriate;Follow s Commands [facility] Work Phone: 11-10-2023 Cognitive function Level Of Cons ciousness Awake;Alert;Appropriate;Follow s Commands [facility] Work Phone: 07-21-2023 Cognitive function Voice/Name [facility] Work Phone: 06-25-2023 Cognitive function Voice/Name [facility] Work Phone: 06-20-2023 Cognitive function Voice/Name [facility] Work Phone: 12-23-2022 Cognitive function Voice/Name [facility] Work Phone: 12-20-2022 Cognitive function Voice/Name [facility] Work Phone: 12-18-2022 Cognitive function Voice/Name [facility] Work Phone: 12-17-2022 Cognitive function Appropriate;Cooperativ e [facility] Work Phone: 12-03-2022 Cognitive function [facility]/Name [facility] Work Phone: 05-20-2022 Cognitive function Level Of Cons ciousness Awake;Alert;Appropriate;Follow s Commands [facility] Work Phone: Clinical Notes 09-12-2020 to 12-27-2024 Note Date & Type Note Facility 12-27-2024 Consult note Note Date/Time December 27, 2024 10:18am [facility] Medical Records Department [address] [place] [address] Pre-Anesthesia Evaluation 12/27/24 1009 MR#: [id number] Acct: [id number] Name: AMAUYR BLANK Rep #:[id number] : 1940 84 From: Gagandeep Rob MD PCP: Dr. Jakob Jiménez MD Status:[facility] Y Race: C Location: [place] [address] ASA Classification* ASA Classification ASA Classification: 3 Assessment & Plan Anesthesia* Anesthesia Assessment Anesthesia Assessment: Discussed sedation and/or anesthesia options, risks, benefits, and alternatives with patient/parents/legal guardian/POA. Questions invited. The patient/parents/legal guardian/POA seems to understand and agrees to proceedwith anesthesia plan. Reviewed the physical assessment, medical history, allergy history and patient home medications list prior to surgery/procedure/anesthetic and documented any changes. Performed airway and anesthesia risk assessments. Anesthesia Type Anesthesia Type: General History Source History Obtained from:: Patient and Chart Anesthesia Focused Assessment* Temperature: 98.3 F Pulse Rate: 77 Blood Pressure: 181/68 Respiratory Rate: 16 Pulse Ox: 98 Oxygen Delivery Method: Room Air Airway Assessment Mouth opens: >3 cm Mallampati Score: IV Teeth Condition: Caps/Crowns (patient has multiple caps and crowns. They are all tight.) Neck Range of motion (ROM): Limited ROM (Slight decrease in extension) Labs Anesthesia Preop lab: CBC WBC 4.5 K/mm3 (4.4-11.0) 11/08/24 16:10 11/08/24 RBC 3.07 M/mm3 (4.6-6.2) L 11/08/24 16:10 11/08/24 Hgb 10.6 g/dL (13.0-16.5) L 11/08/24 16:10 5 Hct 32.7 % (40-54) L 11/08/24 16:10 11/08/24 Plt Count 123 K/mm3 (150-450) L 11/08/24 16:10 11/08/24 CHEMISTRY Potassium 4.6 mmol/L (3.3-5.1) 12/16/24 13:21 12/16/24 Sodium 139 mmol/L (133-145) 12/16/24 13:21 12/16/24 Magnesium 2.2 mg/dL (1.5-2.2) 11/29/24 14:38 11/29/24 Phosphorus 4.0 mg/dL (2.5-4.9) 06/21/23 05:57 06/21/23 BUN 42 mg/dL (4-19) H 12/16/24 13:21 12/16/24 Creatinine 2.13 mg/dL (0.70-1.20) H 12/16/24 13:21 Glucose 115 mg/dL (70-99) H 12/16/24 13:21 12/16/24 POC Glucose 223 mg/dL (74-106) H 11/08/24 18:29 11/08/24 TSH 0.746 uIU/mL (0.300-4.200) 12/16/24 13:21 11/28 03/24 COAG PT 13.8 SECONDS (11.7-14.9) 12/16/24 13:21 Pre-Assessment Diagnosis/Proposed Procedure Planned Operative Procedure(s): LEFT ROBOTIC INGUINAL HERNIA WITH MESH Anesthesia History Anesthesia History - technical mgr: Anesthesia History - technical mgr Hx Hospitalization No 12/14/24 09:04 Any Problems With Anesthesia No 12/14/24 09:04 Cholinesterase deficiency No 12/14/24 09:04 You/Your Family Experience No 12/14/24 09:04 fever (hyperthermia) with Relationship Recent Exposure to Contagious No 12/27/24 09:29 Disease Does patient have nerve No 12/14/24 09:04 stimulator Patient instructed to have device shut off --Does patient have Pacemaker No 12/27/24 09:29 or ICD? When Was Last Pacemaker Check QUESTION #4 FULL TEXT: You/Your Family Experience fever (hyperthermia) with Anesthesia Last Oral Intake Last Oral intake: Last Oral Intake NPO since 20:00 12/27/24 09:29 Meds taken in AM with sips of Yes 12/27/24 09:29 water? Meds patient instructed to take am of surgery Any additional information?: Yes Meds taken in AM with sips of water?: Yes PONV PONV - technical mgr: PONV - technical mgr Female No 12/14/24 09:04 HX of Motion Sickness No 12/14/24 09:04 HX of N/V After Surgery No 12/14/24 09:04 Non-Smoker Yes 12/14/24 09:04 Duration of Surgery greater Yes 12/14/24 09:04 than 60 minutes Number of Risk Factors 2 12/14/24 09:04 PONV Score Moderate Risk 12/14/24 09:04 Height & Weight Height & Weight: Anesthesia: Height & Weight Height 5 ft 10 in 12/27/24 09:29 Weight: 77 kg 12/27/24 09:29 Body Mass Index (BMI) 24.3 12/27/24 09:29 Respiratory Assessment Respiratory Assessment - technical mgr: Respiratory Tract Infection Hx - technical mgr Hx Respiratory Tract Infection No 12/14/24 09:04 STOP Sleep Apnea STOP Sleep Apnea - technical mgr: STOP Sleep Apnea - technical mgr Hx Hypertension No 12/14/24 09:04 Hx Sleep Apnea Yes: IN PAST WHEN PT WAS 230 12/14/24 09:04 LBS CPAP No 12/14/24 09:04 BIPAP No 12/14/24 09:04 Do you snore loudly (louder than talking or can be heard Do you often feel tired/ fatigued/ sleepy during daytime? Has anyone observed you stop breathing during sleep? STOP Results Positive 12/14/24 09:04 QUESTION #5 FULL TEXT : Do you snore loudly (louder than talking or can be heard through closed doors)? 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 Specify any problems Hx of Preganancy in last 3 N/A 12/14/24 09:04 Months Nurse Filling Out Transfusion [id number] 12/14/24 09:04 & Questions: Date: 12/14/24 12/14/24 09:04 Time: 09:09 12/14/24 09:04 Patient unable to answer at this time (ie. confused, unrespo /Reproduction History /Reproductive History - technical mgr: /Reproductive Hx- technical mgr Hx Now No 12/14/24 09:04 Gestational Age (in weeks): EDC: Hx Hx Para Hx Section SAB No 12/14/24 09:04 Active Medications Active Medications: Current Medications Generic Name Dose Route Start Last Admin Trade Name Freq PRN Reason Stop Dose Admin Cefazolin Sodium 2 gm/ Sodium 110 mls @ 200 mls/hr 12/27/24 11:10 Chloride IV 12/27/24 11:42 INTRAOP ONE Lactated Ringer's 1,000 mls @ 15 mls/hr 12/27/24 09:15 12/27/24 09:45 IV 15 mls/hr .Q48H RJ Administration PFSH Medical History History of Holter monitoring H/O transesophageal echocardiography (ROSI) for monitoring Multiple excoriations Anemia Pulmonary hypertension Severe sinus bradycardia CKD (chronic kidney disease) stage 3, GFR 30-59 ml/min General weakness Debility Hyperkalemia Palpitations History of edema Elevated troponin Fever Mitral valve insufficiency PAD (peripheral artery disease) Pancytopenia History of right inguinal hernia History of umbilical hernia Wears hearing aid Wears glasses Alcohol use Thyroid disease Walker as ambulation aid High cholesterol Injury of head and neck Dietary restriction History of GI bleed Hx of ulcerative colitis History of stress test History of echocardiogram History of transesophageal echocardiography (ROSI) Cardiology follow-up encounter History of atrial fibrillation Emphysema of lung Hyperlipidemia Hypertension Atrial fibrillation Hypertension Former smoker History of cardioversion (~05/09/20) Subclavian artery stenosis, left (~10/15/19) Essential hypertension Thrombocytopenia Upper GI bleed Atherosclerotic heart disease of [place] coronary artery without angina pectoris Premature atrial contractions Atrial fibrillation and flutter 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 Hematemesis/vomiting blood Upper GI bleed History of coronary artery disease Thrombocytopenia Ulcerative colitis Right carotid bruit Hypercholesterolemia Home Medications ?Medication ?Instructions ?Recorded ?Last Taken ?Type ferrous sulfate 325 mg (65 mg 325 mg PO DAILY vitamin 05/28/15 12/26/24 History iron) tablet vitamin B complex 1 each PO DAILY vitamin 01/2812/26/24 History aspirin 81 mg tablet,delayed 81 mg PO MO 04/14/2311/29 History release zinc acetate 50 mg (zinc) capsule 50 mg PO DAILY 09/2812/26/24 History atorvastatin 40 mg tablet (Lipitor) 40 mg PO DAILY cho lesterol #90 tabs 03/08/24 12/26/24 Rx hydralazine 50 mg tablet 100 mg (2 x 50 mg) PO BID #1 80 tabs 04/09/24 12/27/24 Rx amlodipine 10 mg tablet 10 mg PO DAILY #90 tabs 06/3012/27/24 Rx lisinopril 20 mg tablet 20 mg PO DAILY #90 tabs 06/30 01/21 Unknown Rx Held on 11/08/24. Instructions: Order Changed levothyroxine 50 mcg tablet 50 mcg PO DAILY thyroid 12/26/24 History furosemide 20 mg tablet (Lasix) [address] ter m d/t 12/10/24 12/24/24 History potassium Allergy/AdvReac Type Severity Reaction Status Date / Time hydrochlorothiazide Allergy Severe Rash Verified 12/27/24 09:27 furosemide (From Lasix) Allergy Severe Verified 12/27/24 09:27 Rash Itchy lovastatin (From Mevacor) Allergy Rash Verified 12/27/24 09:27 Family History Father CAD (coronary artery disease) Mother Cancer breast Surgical History S/P umbilical hernia repair, follow-up exam S/P right inguinal hernia repair History of umbilical hernia repair History of right inguinal hernia repair Hx of colonoscopy History of cardiac catheterization Hx of heart bypass surgery Hx of esophagogastroduodenoscopy Hx of CABG History of hand surgery History of vasectomy Aortocoronary bypass status (~02/12/17) Status post insertion of drug-eluting stent into right coronary artery for coronary artery disease (~04/2009) Social History adopted: No household members: spouse housing: house number of children: 2 current occupational status: retired Smoking Status: Former smoker Tobacco: How many years used: 50 (stopped about 10 yrs ago) how long ago did patient quit smokin years ago alcohol intake: current alcohol intake frequency: 3 or more drinks per day Alcohol type: beer, wine and hard liquor substance use type: does not use caffeine: Yes Type: coffee Number of servings: 2 Review of Systems (Anesthesia) ROS Narrative System reviewed and no additional complaints, except as documented. 12/27/24 1018 <Electronically signed by Gagandeep lui MD> Date _ Gagandeep Sosa Signature: Date CC: ~ Signed [facility] Work Phone: 1(716) 676-707506-30-2025 History and physical note Author Forrest Umaña [facility] Note Date/Time December 27, 2024 1:[address] [facility] Medical Records Department [address] [place] [address] History & Physical Exam 12/27/24 1011 MR#: [id number] Acct: [id number] Name: AMAURY BLANK Rep #:[id number] : 1940 84 From: Forrest chan MD PCP: Dr. Jakob Jiménez MD Status:[facility] Location: [place] [address] History and Physical Date of Admission: 12/27/24 Intake Vital Signs 11/18/2509:04 12/10/2512:18 Height 5 ft 10 in 5 ft 10 in Weight: 163 lb BMI 23.3 BP 161/75 H Blood Pressure Location Rt brachial Position Sitting Respiration 17 Pulse 84 Pulse Source Monitor Pulse Oximetry (%) 97 Oxygen Delivery Method room air Intake Visit Reasons: SELF REFERRED INGUINAL HERNIA Chief Complaint: self referred inguinal hernia-left Is patient in pain?: No Allergies hydrochlorothiazide Allergy (Severe, Verified 12/10/24 13:19) Rashfurosemide (From Lasix) Allergy (Verified 12/10/24 13:19) Severe Rash Itchylovastatin (From Mevacor) Allergy (Verified 12/10/24 13:19) Rash Medications ?Medication ?Instructions ?Recorded ?Confirmed ?Type ferrous sulfate 325 mg (65 mg 325 mg PO DAILY vitamin 05/28/15 5 History iron) tablet vitamin B complex 1 each PO DAILY vitamin 02/07/16 5 History acetaminophen 500 mg tablet 1,000 mg (2 x 500 mg) PO Q6H PRN 3 12/10/24 Rx PRN Pain Score 1-5 #0 tabs aspirin 81 mg tablet,delayed 81 mg PO DAILY 04/14/23 12/10/24 History release zinc acetate 50 mg (zinc) capsule 50 mg PO DAILY 09/29/23 12/10/24 History atorvastatin 40 mg tablet (Lipitor) 40 mg PO DAILY cholesterol #90 tabs 03/2312/10/24 Rx hydralazine 50 mg tablet 100 mg (2 x 50 mg) PO BID #180 tabs 03/3012/10/24 Rx amlodipine 10 mg tablet 10 mg PO DAILY #90 tabs 07/16/24 5 Rx lisinopril 20 mg tablet 20 mg PO DAILY #90 tabs 07/16/24 5 Rx Held on 11/08/24. Instructions: Order Changed levothyroxine 50 mcg tablet 50 mcg PO DAILY thyroid 10/01/24 5 History furosemide 20 mg tablet (Lasix) 20 mg PO QAM short term d/t 12/10/24 History potassium Have you fallen in the past year?: No PFSH Medical History Multiple excoriations Anemia Pulmonary hypertension Severe sinus bradycardia CKD (chronic kidney disease) stage 3, GFR 30-59 ml/min General weakness Debility Hyperkalemia Palpitations History of edema Elevated troponin Fever Mitral valve insufficiency PAD (peripheral artery disease) Pancytopenia History of right inguinal hernia History of umbilical hernia Wears hearing aid Wears glasses Alcohol use Thyroid disease Walker as ambulation aid High cholesterol Injury of head and neck Dietary restriction History of GI bleed Hx of ulcerative colitis History of stress test History of echocardiogram History of transesophageal echocardiography (ROSI) Cardiology follow-up encounter History of atrial fibrillation Emphysema of lung Hyperlipidemia Hypertension Atrial fibrillation Hypertension Former smoker History of cardioversion (~05/09/20) Subclavian artery stenosis, left (~10/15/19) Essential hypertension Thrombocytopenia Upper GI bleed Atherosclerotic heart disease of [place] coronary artery without angina pectoris Premature atrial contractions Atrial fibrillation and flutter 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 Hematemesis/vomiting blood Upper GI bleed History of coronary artery disease Thrombocytopenia Ulcerative colitis Right carotid bruit Hypercholesterolemia Surgical History S/P umbilical hernia repair, follow-up exam S/P right inguinal hernia repair History of umbilical hernia repair History of right inguinal hernia repair Hx of colonoscopy History of cardiac catheterization Hx of heart bypass surgery Hx of esophagogastroduodenoscopy Hx of CABG History of hand surgery History of vasectomy Aortocoronary bypass status (~02/12/17) Status post insertion of drug-eluting stent into right coronary artery for coronary artery disease (~04/2009) Family History Father CAD (coronary artery disease)Mother Cancer breast Social History adopted: No household members: spouse housing: house number of children: 2 current occupational status: retired Smoking Status: Former smoker Tobacco: How many years used: 50 (stopped about 10 yrs ago) how long ago did patient quit smokin years ago alcohol intake: current alcohol intake frequency: 3 or more drinks per day Alcohol type: beer, wine and hard liquor substance use type: does not use caffeine: Yes Type: coffee Number of servings: 2 HPI HPI HPI: Patient is an 84-year-old male here with a left inguinal hernia. The patient has a history of a right inguinal hernia repair in the past. He has no issues on the right side. He is having bulge on the left which does reduce. He is nothaving any issues going to the bathroom. ROS General General: No weight change, appetite, fatigue, colon cancer, breast cancer or weakness HEENT HEENT: Yes eye surgery; No difficulty swallowing, eye injury, swollen glands or hoarseness Endo Endocrine: Yes thyroid disease; No diabetes mellitus, thyroid cancer, Hair loss, heat intolerance or cold intolerance Skin Skin: No rash or changing moles Musc Musculoskeletal: Yes arthritis; No back problems, rheumatoid arthritis, gout or joint pain Cardio Cardiovascular: Yes heart disease, atrial fibrillation and high blood pressure; No murmur, pacemaker, heart attack, heart stent, palpitations, shortness of breath with exertion or chest pain Psych Psychiatric: No depression, anxiety or hearing voices Resp Respiratory: No shortness of breath, No sleep apnea, No cough, No COPD, No asthma, No emphysema and No wheezing Gastro Gastrointestinal: No abdominal pain, No nausea or vomiting, No diarrhea, No constipation, No blood in stool, No acid reflux, No hemorrhoids, No ulcers, No gallbladder problem and No black,tarry stools Tye Hematologic: No blood thinners, No blood disorders, No bleeding, Yes anemia and No blood clots Neuro Neurologic: No system reviewed and no additional complaints, except as documented, No as per HPI, No abnormal gait, No abnormal hearing, No abnormal movements, No abnormal speech, No behavioral changes, No burning sensations, No confusion, No convulsions, No disequilibrium, No dizziness, No localized weakness, No frequent falls, No headache(s), No lack of coordination, No loss ofvision, No memory loss, Yes numbness, No other visual disturbances, No radicularpain, No restless legs, No sensory deficit, No syncope, Yes tingling, No tremor(s), No weakness and No other Exam Const General: cooperative Orientation: alert and oriented x3 HENMT Head: normal to inspection Neck Neck: normal visual inspection and full ROM Chest Chest palpation & inspection: normal inspection of the chest Resp Effort & Inspection: normal respiratory effort Auscultation: clear to auscultation bilaterally Cardio Rate: regular rate Rhythm: regular rhythm GI Inspection: non-distended Palpation: soft, hernia indirect inguinal on the left and nontender Skin General: no rashes or lesions noted Neuro General: patient alert and patient oriented x3 Extrem General: full ROM Psych Appearance: grossly normal Mental Status: mental status grossly normal Assessment and Plan Assessment and Plan (1) Left inguinal hernia: Status: Acute Plan: Patient has left inguinal hernia he would like repaired. It appears large. He had a recent CT scan which did show that it contained colon. The patient reports no issues defecating. Plan for a robotic assisted laparoscopic left inguinal hernia repair with mesh. I discussed the procedure in detail as well as the risks. I discussed the risks of bleeding, infection, injury other organssuch as the blood supply to the testicle or the testicle itself or the bladder or ureter. Patient understands the risks and is willing to proceed. I also discussed mesh placement with the patient in detail. Forrest Umaña MD Pager: [facility] [address] [place] [address], [address] [place] [phone] Office: I have examined the patient and the H&P has been reviewed. There are no clinicalchanges since date of exam. 12/27/24 1011 <Electronically signed by Forrest Umaña MD> Cosigner Signature (if applicable): CC: Dr. Forrest Umaña MD; Dr. Jakob Jiménez MD~ Signed [facility] Work Phone: [phone] Procedure [facility] 12-27-2024 [facility] Medical Records Department [address] [place] [address] History Physical Exam 12/27/24 1011 MR#: [id number] Acct: [id number] Name: AMAURY BLANK Rep #: [id number] : 1940 84 From: Forrest Umaña MD PCP: Dr. Jakob Jiménez MD Status:[facility] Location: [place] [address] History and Physical Date of Admission: 12/27/24 Intake Vital Signs 11/18/2509:04 12/10/2512:18 Height 5 ft 10 in 5 ft 10 in Weight: 163 lb BMI 23.3 BP 161/75 H Blood Pressure Location Rt brachial Position Sitting Respiration 17 Pulse 84 Pulse Source Monitor Pulse Oximetry (%) 97 Oxygen Delivery Method room air Intake Visit Reasons: SELF REFERRED INGUINAL HERNIA Chief Complaint: self referred inguinal hernia-left Is patient in pain?: No Allergies hydrochlorothiazide Allergy (Severe, Verified 12/10/24 13:19) Rashfurosemide (From Lasix) Allergy (Verified 12/10/24 13:19) Severe Rash Itchylovastatin (From Mevacor) Allergy (Verified 12/10/24 13:19) Rash Medications ???Medication ???Instructions ???Recorded ???Confirmed ???Type ferrous sulfate 325 mg (65 mg 325 mg PO DAILY vitamin 05/28/15 12/10/24 History iron) tablet vitamin B complex 1 each PO DAILY vitamin 02/07/16 12/10/24 History acetaminophen 500 mg tablet 1,000 mg (2 x 500 mg) PO Q6H PRN 12/19/22 12/10/24 Rx PRN Pain Score 1-5 #0 tabs aspirin 81 mg tablet,delayed 81 mg PO DAILY 04/14/23 12/10/24 History release zinc acetate 50 mg (zinc) capsule 50 mg PO DAILY 09/29/23 12/10/24 History atorvastatin 40 mg tablet (Lipitor) 40 mg PO DAILY cholesterol #90 tabs 03/08/2412/10 Rx hydralazine 50 mg tablet 100 mg (2 x 50 mg) PO BID #180 tabs 04/09/2412/10 Rx amlodipine 10 mg tablet 10 mg PO DAILY #90 tabs 07/16/24 12/10/24 Rx lisinopril 20 mg tablet 20 mg PO DAILY #90 tabs 07/16/24 12/10/24 Rx Held on 11/08/24. Instructions: Order Changed levothyroxine 50 mcg tablet 50 mcg PO DAILY thyroid 10/01/24 12/10/24 History furosemide 20 mg tablet (Lasix) 20 mg PO QAM short term d/t 12/10/24 12/10/24 Hist ory potassium Have you fallen in the past year?: No PFSH Medical History Multiple excoriations Anemia Pulmonary hypertension Severe sinus bradycardia CKD (chronic kidney disease) stage 3, GFR 30-59 ml/min General weakness Debility Hyperkalemia Palpitations History of edema Elevated troponin Fever Mitral valve insufficiency PAD (peripheral artery disease) Pancytopenia History of right inguinal hernia History of umbilical hernia Wears hearing aid Wears glasses Alcohol use Thyroid disease Walker as ambulation aid High cholesterol Injury of head and neck Dietary restriction History of GI bleed Hx of ulcerative colitis History of stress test History of echocardiogram History of transesophageal echocardiography (ROSI) Cardiology follow-up encounter History of atrial fibrillation Emphysema of lung Hyperlipidemia Hypertension Atrial fibrillation Hypertension Former smoker History of cardioversion ( 05/09/20) Subclavian artery stenosis, left ( 10/15/19) Essential hypertension Thrombocytopenia Upper GI bleed Atherosclerotic heart disease of [place] coronary artery without angina pectoris Premature atrial contractions Atrial fibrillation and flutter 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 Hematemesis/vomiting blood Upper GI bleed History of coronary artery disease Thrombocytopenia Ulcerative colitis Right carotid bruit Hypercholesterolemia Surgical History S/P umbilical hernia repair, follow-up exam S/P right inguinal hernia repair History of umbilical hernia repair History of right inguinal hernia repair Hx of colonoscopy History of cardiac catheterization Hx of heart bypass surgery Hx of esophagogastroduodenoscopy Hx of CABG History of hand surgery History of vasectomy Aortocoronary bypass status ( 02/12/17) Status post insertion of drug-eluting stent into right coronary artery for coronary artery disease ( 04/2009) Family History Father CAD (coronary artery disease)Mother Cancer breast Social History adopted: No household members: spouse housing: house number of children: 2 current occupational status: retired Smoking Status: Former smoker Tobacco: How many years used: 50 (stopped about 10 yrs ago) how long ago did patient quit smokin years ago alcohol intake: current alcohol intake frequency: 3 or more drinks per day Alcohol type: beer, wine and hard liquor substance use type: does not use caffeine: Yes Type: coffee Number of servings: 2 HPI (more content not included)...[facility]-2025 Hospital Discharge instructionsAmbulatory Orders* 12 Lead EKG [[facility]] Time Frame: 12/16/24, Location: None Selected [facility] Work Phone: [phone]) 994-272805-25-2025 Radiology Diagnostic study note [facility] [address] [place], [place] [address] CTA Abd/Pelvis W/WO Contrast MR#: [id number] Acct: [id number] Name: AMAURY BLANK Rep #: [id number] : 1940 M 84 From: Cheo Perez MD PCP: Dr. Rosa Maria Santacruz MD Status: REG CLI Study:CTA Abd/Pelvis W/WO Contrast Date of Ex am: 11/18/24 Exam# [id number] Ordering Dr: Terese Khanna MD PROCEDURE: CTA ABD/PELVIS W/WO CONTRAST 11/18/2024 REASON FOR EXAM: STRICTURE OF ARTERY TECHNIQUE: CTA imaging of the abdomen and pelvis with intravenous contrast. Multiplanar andmultisequence images were obtained. CONTRAST: Isovue 370 VOLUME: 100 mL Gauge IV One or more dose reduction techniques were used (e.g., Automated exposure control, adjustment of the mA and/or kV according to patient size, use of iterative reconstruction technique). RADIATION DOSE SUMMARY: CTDlvol: 15.7 mGy DLP: 739 mGycm FINDINGS: Aorta: Moderate multifocal stenosis. Iliac Arteries: Moderate multifocal stenosis. Celiac: Occluded origin. Recanalized 3 cm distal to its origin. Ectatic hepatic artery. Moderate multifocal stenosis distal to this level. SMA: Endovascular stent at its origin. The stent is patent. 70% stenosis. LELAND : 80% stenosis of its origin. Right Renal: 80% stenosis. Left Renal: 70% stenosis. Small sliding hiatal hernia. Left inguinal hernia containing nonincarcerated segment of the colon. Right inguinal hernia containing nonincarcerated fat. Mild chronic right renal atrophy. Bilateral scattered simple renal cysts are noted with the largest measuring 5.8 cm. Mild prostatomegaly. Diffuse thickening of the bladder, probably chronic bladder outlet obstruction. Severe chronic compression fracture of L1 vertebral body. Mild associated retropulsion without secondary high-grade spinal canal stenosis. Increased kyphosis at the level of the thoracolumbar junction with exaggerated lumbar lordosis. Diffuse thickening of the stomach suggestive of gastritis. Uncomplicated colonic diverticulosis. Normal liver. Normal gallbladder and extrahepatic biliary system. Normal spleen. Normal pancreas. Normal bilateral adrenal glands. Moderate atrophy of the right kidney. There is no right renal mass. There are no right renal calculi. There is no right hydronephrosis. Normal visualized right ureter. Mild atrophy of the left kidney. There is no left renal mass. There are no left renal calculi. There is no left hydronephrosis. Normal visualized left ureter. Normal small intestine. The appendix is visualized and appears normal. There is no demonstrated peritoneal fluid. Normal inferior vena cava. Normal retroperitoneum. There is no pelvic mass lesion or lymphadenopathy. There is no pelvic fluid. Unremarkable metallic hardware of the left femur. CT/CTA Abd/Pelvis W/WO Contrast IMPRESSION: Atherosclerosis with multifocal stenosis. Reading Location: [id number] CC: Dr. Rosa Maria Santacruz MD; Dr. Singh Khanna MD ~ [employer] Official: Signed [facility]05-12-2025 Discharge summary [facility] Medical Records Department [address] [place] [address] Emergency Department Summary 11/08/24 MR#: [id number] Acct: [id number] Name: AMAURY BLANK Rep #:[id number] : 1940 84 From: Frederick Roberts MD PCP: Dr. 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 His potassium was elevated when his labs came back so he was directed to come to the ER. Patient states he is asymptomatic. He has been urinating without difficulty. He does not see ne phrology. [facility] Medical History Multiple excoriations Anemia Pulmonary hypertension Severe sinus bradycardia CKD (chronic kidney disease) stage 3, GFR 30-59 ml/min General weakness Debility Hyperkalemia Palpitations History of edema Elevated troponin Fever Mitral valve insufficiency PAD (peripheral artery disease) Pancytopenia History of right inguinal hernia History of umbilical hernia Wears hearing aid Wears glasses Alcohol use Thyroid disease Walker as ambulation aid High cholesterol Injury of head and neck Dietary restriction History of GI bleed Hx of ulcerative colitis History of stress test History of echocardiogram History of transesophageal echocardiography (ROSI) Cardiology follow-up encounter History of atrial fibrillation Emphysema of lung Hyperlipidemia Hypertension Atrial fibrillation Hypertension Former smoker History of cardioversion (~05/09/20) Subclavian artery stenosis, left (~10/15/19) Essential hypertension Thrombocytopenia Upper GI bleed Atherosclerotic heart disease of [place] coronary artery without angina pectoris Premature atrial contractions Atrial fibrillation and flutter 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 Hematemesis/vomiting blood Upper GI bleed History of coronary artery disease Thrombocytopenia Ulcerative colitis Right carotid bruit Hypercholesterolemia Home Medications ?Medication ?Instructions ?Recorded ?Last Taken ?Type ferrous sulfate 325 mg (65 mg 325 mg PO DAILY vitamin 05/28/15 05/09/20 History iron) tablet vitamin B complex 1 each PO DAILY vitamin 01/2820 History acetaminophen 500 mg tablet 1,000 mg (2 x 500 mg) PO Q 6H PRN 12/19/22 Unknown Rx PRN Pain Score 1-5 #0 tabs aspirin 81 mg tablet,delayed 81 mg PO DAILY 04/14/23 U nknown History release zinc acetate 50 mg (zinc) capsule 50 mg PO DAILY 09/28 Unknown History atorvastatin 40 mg tablet (Lipitor) 40 mg PO DAILY cho lesterol #90 tabs 03/08/24 Unknown Rx hydralazine 50 mg tablet 100 mg (2 x 50 mg) PO BID #1 80 tabs 04/09/24 Unknown Rx amlodipine 10 mg tablet 10 mg PO DAILY #90 tabs 06/30 01/21 Unknown Rx lisinopril 20 mg tablet 20 mg PO DAILY #90 tabs 06/30 01/21 Unknown Rx Held on 11/08/24. Instructions: Order Changed levothyroxine 50 mcg tablet 50 mcg PO DAILY thyroid Unknown History balsalazide 750 mg capsule mg PO 11/08/24 Unknown Hist ory Allergy/AdvReac Type Severity Reaction Status Date / Time hydrochlorothiazide Allergy Severe Rash Verified 11/08/24 14:41 furosemide (From Lasix) Allergy Severe Verified 11/08/24 14:41 Rash Itchy lovastatin (From Mevacor) Allergy Rash Verified 11/08/24 14:41 Family History Father CAD (coronary artery disease) Mother Cancer breast Surgical History S/P umbilical hernia repair, follow-up exam S/P right inguinal hernia repair History of umbilical hernia repair History of right inguinal hernia repair Hx of colonoscopy History of cardiac catheterization Hx of heart bypass surgery Hx of esophagogastroduodenoscopy Hx of CABG History of hand surgery History of vasectomy Aortocoronary bypass status (~02/12/17) Status post insertion of drug-eluting stent into right coronary artery for coronary artery disease (~04/2009) Social History adopted: No household members: spouse housing: house number of children: 2 current occupational status: retired Smoking Status: Former smoker Tobacco: How many years used: 50 (stopped about 10 yrs ago) how long ago did patient quit smokin years ago alcohol intake: current alcohol intake frequency: 3 or more drinks per day Alcohol type: beer, wineand hard liquor substance use type: does not use caffeine: Yes Type: coffee Number of servings: 2 ROS ROS ED Constitutional Constitutional ED: Denies chills or fever(s) Eyes Eyes: Denies change in vision or diplopia ENT ENT ED: Denies rhinorrhea or sore throat Cardiovascular Cardiovascular: Denies chest pain or palpitations Respiratory/Chest Respiratory/Chest: Denies cough or dyspnea Gastrointestinal Gastrointestinal: Denies abdominal pain, diarrhea, nausea or vomiting Genitourinary Genitourinary ED: Denies dysuria or hematuria Musculoskeletal Musculoskeletal: Denies back pain or neck pain Integumentary Denies abscess or rash Neurologic Neurologic: Denies headache(s), paresthesias or weakness Psychiatric Psychiatric: Denies anxiety or suicidal thoughts EXAM Physical Exam Const Vital Signs: 11/08/24 14:42 11/08/24 16:34 11/08/24 17:00 Temperature 98 F 97.7 F L Temperature Source Oral Oral Pulse Rate 76 78 73 Respiratory Rate 19 H 15 15 Respiratory Pattern Blood Pressure 154/71 H 188/69 H 172/61 H Blood Pressure Mean 98 108 98 Pulse Ox 97 99 99 Oxygen Delivery Method Room Air Room Air 11/08/24 17:22 11/08/24 18:00 11/08/24 19:00 Temperature Temperature Source Pulse Rate 69 84 82 Respiratory Rate 16 21 H 20 H Respiratory Pattern Normal Blood Pressure 166/74 H 172/92 H Blood Pressure Mean 104 118 Pulse Ox 95 97 Oxygen Delivery Method Room Air 11/08/24 20:00 11/08/24 21:00 11/08/24 22:00 Temperature Temperature Source Pulse Rate 86 82 89 Respiratory Rate 15 Respiratory Pattern Blood Pressure 156/83 H 144/79 H 122/67 H Blood Pressure Mean 107 100 85 Pulse Ox 95 99 97 Oxygen Delivery Method Positive well nourished and well developed General Appearance ED: well developed and NAD HEENT Reports moist mucous membranes normocephalic and atraumatic Eyes PERRL and EOMs intact bilaterally Neck full ROM and supple Resp normal respiratory effort and clear to auscultation bilaterally Cardio regular rate and regular rhythm Heart Sounds: murmur systolic I/ soft left sternal border GI non-tender and non-distended Auscultation: normoactive bowel sounds Palpation: soft Back/Spine no CVA tenderness General Back: other FROM Extremity normal to inspection General Extremety ED: Yes edema; Negative for pulses abnormal or tenderness General Extremity: edema bilateral lower extremity Details: mild; Negative for pulses abnormal Neuro oriented x3, CN's II-XII intact bilaterally and no sensory deficits noted Sensorium / Orientation: awake and alert Motor Exam: strength 5/5 throughout Skin no rashes or lesions noted and no wounds MDM MDM MDM Narrative Medical decision making narrative: I reviewed his old labs, his potassium was 6.1. No report of any hemolysis. While repeating this, to rule out lab error, treated him with insulin/glucose and albuterol. Held on Kayexalate because he has a history of ulcerative colitis. Patient did well and remained asymptomatic had no telemetry events. Repeat potassium is 5.0 within normal range. I tried for several hours to get ahold of nephrology, apparently there is nobody on-call for unassigned patients. His renal function is no worse than usual so I do not think he needs to be admitted for this right now, we can give him nephrology's information, but in the meantime he may need to follow-up with his PCP to have a repeat potassium level, or Dr. Micntyre. Lab Data Attestation: I reviewed the patient's lab results. Labs: Laboratory Results - last 24 hr 11/08/24 11/08/24 11/08/24 16:10 18:29 19:36 WBC 4.5 RBC 3.07 L Hgb 10.6 L Hct 32.7 L MCV 106.5 H MCH 34.5 H MCHC 32.4 RDW Std Deviation 51.6 H RDW Coeff of Chanel 13.2 Plt Count 123 L MPV 9.9 Immature Gran % (Auto) 0.000 Neut % (Auto) 67.9 Lymph % (Auto) 16.3 L Kendall % (Auto) 10.1 H Eos % (Auto) 4.8 Baso % (Auto) 0.9 Absolute Neuts (auto) 3.1 Absolute Lymphs (auto) 0.74 L Nucleated RBC % 0 Sodium 137 Potassium 6.6 H* 5.0 Chloride 107 Carbon Dioxide 18.5 L Anion Gap 11 BUN 49 H Creatinine 2.54 H Estim Creat Clear Calc 22.75 L Est GFR (MDRD) Non-Af 24 L BUN/Creatinine Ratio 19.3 Glucose 101 H Calcium 9.6 POC Glucose 223 H Rhythm Strip Rhythm Strip: Sinus Rhythm Rate: 74 Ectopy: None EKG Initial EKG: Attestation: I personally reviewed and interpreted this EKG as follows: Interpretation: Sinus Rhythm and No Acute Injury Pattern Comments: Narrow QRS. Leftward axis. Some mildly peaked T waves in the precordial leads compared with old. Otherwise unchanged. Discharge Plan Triage Chief Complaint: Abn Labs ED Provider: Frederick Roberts Dx/Rx/DC Orders Clinical Impression: Acute hyperkalemia, Chronic kidney disease (CKD) Instructions: ED Hyperkalemia Prescriptions: No Action aspirin 81 mg tablet,delayed release (DR/EC) 81 mg PO DAILY zinc acetate 50 mg (zinc) capsule 50 mg PO DAILY balsalazide 750 mg capsule PO ferrous sulfate 325 MG tablet 325 mg PO DAILY Patient Comments: Iron supplement vitamin B complex 1 EACH capsule 1 each PO DAILY Patient Comments: Vitamin supplement acetaminophen 500 mg Tablet 1,000 mg PO Q6H PRN PRN (Reason: Pain Score 1-5) Qty: 0 0RF atorvastatin [Lipitor] 40 mg tablet 40 mg PO DAILY Qty: 90 3RF hydralazine 50 mg tablet 100 mg PO BID Qty: 180 3RF amlodipine 10 mg tablet 10 mg PO DAILY Qty: 90 3RF lisinopril 20 mg tablet 20 mg PO DAILY Qty: 90 3RF levothyroxine 50 mcg tablet 50 mcg PO DAILY Primary Care Provider: Rosa Maria Santacruz Referrals: Rosa Maria Santacruz MD [Primary Care Provider] - Kvng James MD [Med Staff - Consulting] - As soon as possible Mathieu Mcintyre MD [Med Staff - Active Staff] - As soon as possible Print Language: Danish Disposition Disposition: Home, Self Care What to do if you have Problems For any increased pain, shortness of breath, bleeding, nausea or vomiting, chestpain, or any unexpected problems, contact your Primary Care Provider. Call [facility] ([phone]) or report tothe closest Emergency Room. Call 911 if necessary. 11/08/24 6634 Cosigner Signature (if applicable): CC: Dr. Rosa Maria Santacruz MD; Dr. Mathieu Mcintyre MD ~ Signed [facility]05-12-2025 Evaluation note* Diagnosis Onset Date Resolution Status Admit Date Iron deficiency anemia acute Ma 2024 12:51pm Anemia chronic November 08, 2024 12:51pm Left inguinal hernia acute December 10, 2024 1:02pm [facility] Work Phone: 1(246) 432-603605-12-2025 Discharge summary Author Frederick Roberts [facility] Note Date/Time November 08, 2024 10:[address] [facility] Medical Records Department [address] [place] [address] Emergency Department Summary 11/08/24 MR#: [id number] Acct: [id number] Name: AMAURY BLANK Rep #:[id number] : 1940 84 From: Frederick Roberts MD PCP: Dr. 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 His potassium was elevated when his labs came back so he was directed to come to the ER. Patient states he is asymptomatic. He has been urinating without difficulty. He does not see nephrology. [facility] Medical History Multiple excoriations Anemia Pulmonary hypertension Severe sinus bradycardia CKD (chronic kidney disease) stage 3, GFR 30-59 ml/min General weakness Debility Hyperkalemia Palpitations History of edema Elevated troponin Fever Mitral valve insufficiency PAD (peripheral artery disease) Pancytopenia History of right inguinal hernia History of umbilical hernia Wears hearing aid Wears glasses Alcohol use Thyroid disease Walker as ambulation aid High cholesterol Injury of head and neck Dietary restriction History of GI bleed Hx of ulcerative colitis History of stress test History of echocardiogram History of transesophageal echocardiography (ROSI) Cardiology follow-up encounter History of atrial fibrillation Emphysema of lung Hyperlipidemia Hypertension Atrial fibrillation Hypertension Former smoker History of cardioversion (~05/09/20) Subclavian artery stenosis, left (~10/15/19) Essential hypertension Thrombocytopenia Upper GI bleed Atherosclerotic heart disease of [place] coronary artery without angina pectoris Premature atrial contractions Atrial fibrillation and flutter 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 Hematemesis/vomiting blood Upper GI bleed History of coronary artery disease Thrombocytopenia Ulcerative colitis Right carotid bruit Hypercholesterolemia Home Medications ?Medication ?Instructions ?Recorded ?Last Taken ?Type ferrous sulfate 325 mg (65 mg 325 mg PO DAILY vitamin 05/28/15 05/09/20 History iron) tablet vitamin B complex 1 each PO DAILY vitamin 01/2805/09/20 History acetaminophen 500 mg tablet 1,000 mg (2 x 500 mg) PO Q 6H PRN 12/19/22 Unknown Rx PRN Pain Score 1-5 #0 tabs aspirin 81 mg tablet,delayed 81 mg PO DAILY 04/14/23 U nknown History release zinc acetate 50 mg (zinc) capsule 50 mg PO DAILY 09/28 Unknown History atorvastatin 40 mg tablet (Lipitor) 40 mg PO DAILY cho lesterol #90 tabs 03/08/24 Unknown Rx hydralazine 50 mg tablet 100 mg (2 x 50 mg) PO BID #1 80 tabs 04/09/24 Unknown Rx amlodipine 10 mg tablet 10 mg PO DAILY #90 tabs 06/30 01/21 Unknown Rx lisinopril 20 mg tablet 20 mg PO DAILY #90 tabs 06/30 01/21 Unknown Rx Held on 11/08/24. Instructions: Order Changed levothyroxine 50 mcg tablet 50 mcg PO DAILY thyroid Unknown History balsalazide 750 mg capsule mg PO 11/08/24 Unknown Hist ory Allergy/AdvReac Type Severity Reaction Status Date / Time hydrochlorothiazide Allergy Severe Rash Verified 11/08/24 14:41 furosemide (From Lasix) Allergy Severe Verified 11/08/24 14:41 Rash Itchy lovastatin (From Mevacor) Allergy Rash Verified 11/08/24 14:41 Family History Father CAD (coronary artery disease) Mother Cancer breast Surgical History S/P umbilical hernia repair, follow-up exam S/P right inguinal hernia repair History of umbilical hernia repair History of right inguinal hernia repair Hx of colonoscopy History of cardiac catheterization Hx of heart bypass surgery Hx of esophagogastroduodenoscopy Hx of CABG History of hand surgery History of vasectomy Aortocoronary bypass status (~02/12/17) Status post insertion of drug-eluting stent into right coronary artery for coronary artery disease (~04/2009) Social History adopted: No household members: spouse housing: house number of children: 2 current occupational status: retired Smoking Status: Former smoker Tobacco: How many years used: 50 (stopped about 10 yrs ago) how long ago did patient quit smokin years ago alcohol intake: current alcohol intake frequency: 3 or more drinks per day Alcohol type: beer, wine and hard liquor substance use type: does not use caffeine: Yes Type: coffee Number of servings: 2 ROS ROS ED Constitutional Constitutional ED: Denies chills or fever(s) Eyes Eyes: Denies change in vision or diplopia ENT ENT ED: Denies rhinorrhea or sore throat Cardiovascular Cardiovascular: Denies chest pain or palpitations Respiratory/Chest Respiratory/Chest: Denies cough or dyspnea Gastrointestinal Gastrointestinal: Denies abdominal pain, diarrhea, nausea or vomiting Genitourinary Genitourinary ED: Denies dysuria or hematuria Musculoskeletal Musculoskeletal: Denies back pain or neck pain Integumentary Denies abscess or rash Neurologic Neurologic: Denies headache(s), paresthesias or weakness Psychiatric Psychiatric: Denies anxiety or suicidal thoughts EXAM Physical Exam Const Vital Signs: 11/08/24 14:42 11/08/24 16:34 11/08/24 17:00 Temperature 98 F 97.7 F L Temperature Source Oral Oral Pulse Rate 76 78 73 Respiratory Rate 19 H 15 15 Respiratory Pattern Blood Pressure 154/71 H 188/69 H 172/61 H Blood Pressure Mean 98 108 98 Pulse Ox 97 99 99 Oxygen Delivery Method Room Air Room Air 11/08/24 17:22 11/08/24 18:00 11/08/24 19:00 Temperature Temperature Source Pulse Rate 69 84 82 Respiratory Rate 16 21 H 20 H Respiratory Pattern Normal Blood Pressure 166/74 H 172/92 H Blood Pressure Mean 104 118 Pulse Ox 95 97 Oxygen Delivery Method Room Air 11/08/24 20:00 11/08/24 21:00 11/08/24 22:00 Temperature Temperature Source Pulse Rate 86 82 89 Respiratory Rate 15 Respiratory Pattern Blood Pressure 156/83 H 144/79 H 122/67 H Blood Pressure Mean 107 100 85 Pulse Ox 95 99 97 Oxygen Delivery Method Positive well nourished and well developed General Appearance ED: well developed and NAD HEENT Reports moist mucous membranes normocephalic and atraumatic Eyes PERRL and EOMs intact bilaterally Neck full ROM and supple Resp normal respiratory effort and clear to auscultation bilaterally Cardio regular rate and regular rhythm Heart Sounds: murmur systolic I/ soft left sternal border GI non-tender and non-distended Auscultation: normoactive bowel sounds Palpation: soft Back/Spine no CVA tenderness General Back: other FROM Extremity normal to inspection General Extremety ED: Yes edema; Negative for pulses abnormal or tenderness General Extremity: edema bilateral lower extremity Details: mild; Negative for pulses abnormal Neuro oriented x3, CN's II-XII intact bilaterally and no sensory deficits noted Sensorium / Orientation: awake and alert Motor Exam: strength 5/5 throughout Skin no rashes or lesions noted and no wounds MDM MDM MDM Narrative Medical decision making narrative: I reviewed his old labs, his potassium was 6.1. No report of any hemolysis. While repeating this, to rule out lab error, treated him with insulin/glucose and albuterol. Held on Kayexalate because he has a history of ulcerative colitis. Patient did well and remained asymptomatic had no telemetry events. Repeat potassium is 5.0 within normal range. I tried for several hours to get ahold of nephrology, apparently there is nobody on-call for unassigned patients. His renal function is no worse than usual so I do not think he needs to be admitted for this right now, we can give him nephrology's information, but in the meantime he may need to follow-up with his PCP to have a repeat potassium level, or Dr. Mcintyre. Lab Data Attestation: I reviewed the patient's lab results. Labs: Laboratory Results - last 24 hr 11/08/24 11/08/24 11/08/24 16:10 18:29 19:36 WBC 4.5 RBC 3.07 L Hgb 10.6 L Hct 32.7 L MCV 106.5 H MCH 34.5 H MCHC 32.4 RDW Std Deviation 51.6 H RDW Coeff of Chanel 13.2 Plt Count 123 L MPV 9.9 Immature Gran % (Auto) 0.000 Neut % (Auto) 67.9 Lymph % (Auto) 16.3 L Kendall % (Auto) 10.1 H Eos % (Auto) 4.8 Baso % (Auto) 0.9 Absolute Neuts (auto) 3.1 Absolute Lymphs (auto) 0.74 L Nucleated RBC % 0 Sodium 137 Potassium 6.6 H* 5.0 Chloride 107 Carbon Dioxide 18.5 L Anion Gap 11 BUN 49 H Creatinine 2.54 H Estim Creat Clear Calc 22.75 L Est GFR (MDRD) Non-Af 24 L BUN/Creatinine Ratio 19.3 Glucose 101 H Calcium 9.6 POC Glucose 223 H Rhythm Strip Rhythm Strip: Sinus Rhythm Rate: 74 Ectopy: None EKG Initial EKG: Attestation: I personally reviewed and interpreted this EKG as follows: Interpretation: Sinus Rhythm and No Acute Injury Pattern Comments: Narrow QRS. Leftward axis. Some mildly peaked T waves in the precordial leads compared with old. Otherwise unchanged. Discharge Plan Triage Chief Complaint: Abn Labs ED Provider: Frederick Roberts Dx/Rx/DC Orders Clinical Impression: Acute hyperkalemia, Chronic kidney disease (CKD) Instructions: ED Hyperkalemia Prescriptions: No Action aspirin 81 mg tablet,delayed release (DR/EC) 81 mg PO DAILY zinc acetate 50 mg (zinc) capsule 50 mg PO DAILY balsalazide 750 mg capsule PO ferrous sulfate 325 MG tablet 325 mg PO DAILY Patient Comments: Iron supplement vitamin B complex 1 EACH capsule 1 each PO DAILY Patient Comments: Vitamin supplement acetaminophen 500 mg Tablet 1,000 mg PO Q6H PRN PRN (Reason: Pain Score 1-5) Qty: 0 0RF atorvastatin [Lipitor] 40 mg tablet 40 mg PO DAILY Qty: 90 3RF hydralazine 50 mg tablet 100 mg PO BID Qty: 180 3RF amlodipine 10 mg tablet 10 mg PO DAILY Qty: 90 3RF lisinopril 20 mg tablet 20 mg PO DAILY Qty: 90 3RF levothyroxine 50 mcg tablet 50 mcg PO DAILY Primary Care Provider: Rosa Maria Santacruz Referrals: Rosa Maria Santacruz MD [Primary Care Provider] - Kvng James MD [Med Staff - Consulting] - As soon as possible Mathieu Mcintyre MD [Med Staff - Active Staff] - As soon as possible Print Language: Danish Disposition Disposition: Home, Self Care What to do if you have Problems For any increased pain, shortness of breath, bleeding, nausea or vomiting, chestpain, or any unexpected problems, contact your Primary Care Provider. Call [facility] ([phone]) or report to the closest Emergency Room. Call 911 if necessary. 11/08/242204 <Electronically signed by Frederick Roberts MD> Cosigner Signature (if applicable): CC: Dr. Rosa Maria Santacruz MD; Dr. Mathieu Mcintyre MD ~ Signed [facility] Work Phone: 1(191) 506-358604-04-2025 Evaluation note* Diagnosis Onset Date Resolution Status Admit Date Atrial fibrillation acute October 01, 2024 12:52pm Hyperlipidemia acute October 01, 2024 12:52pm Carotid artery stenosis chronic A pril 2024 12:52pm Coronary artery disease chronic A pril 2024 12:52pm Essential hypertension chronic Ap ril 2024 12:52pm 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, [facility] ed October 01, 2024 12:52pm [facility] Work Phone: 1(911) 271-696504-04-2025 Evaluation note* Diagnosis Onset Date Resolution Status Admit Date Atrial fibrillation acute October 01, 2024 12:52pm Hyperlipidemia acute October 01, 2024 12:52pm Carotid artery stenosis chronic A pril 2024 12:52pm Coronary artery disease chronic A pril 2024 12:52pm Essential hypertension chronic Ap ril 2024 12:52pm 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, [facility] ed October 01, 2024 12:52pm Iron deficiency anemia acute 2024 12:51pm Anemia chronic November 08, 2024 12:51pm [facility] Work Phone: 1(768) 413-406004-04-2025 Evaluation note* Diagnosis Onset Date Resolution Status Admit Date Atrial fibrillation acute October 01, 2024 12:52pm Hyperlipidemia acute October 01, 2024 12:52pm Carotid artery stenosis chronic A pril 2024 12:52pm Coronary artery disease chronic A pril 2024 12:52pm Essential hypertension chronic Ap ril 2024 12:52pm 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, [facility] ed October 01, 2024 12:52pm Iron deficiency anemia acute Ma 2024 12:51pm Anemia chronic November 08, 2024 12:51pm Left inguinal hernia acute December 10, 2024 1:02pm [facility] Work Phone: 1(585) 788-715205-13-2024 Discharge summary Author Hans Armendariz [facility] November 10, 2023 7:14pm Note Date/Time November 10, 2023 5:27p m [facility] Medical Records Department [address] [place] [address] Emergency Department Summary 11/10/23 MR#: [id number] Acct: [id number] Name: AMAURY BLANK Rep #:[id number] : 1940 83 From: Hans Armendariz MD PCP: Dr. Rosa Maria Santacruz MD Status:REG ER Location: ED HPI History of Present Illness Chief Complaint: Abn Labs Narrative Narrative: 83-year-old male past medical history of atrial fibrillation, ulcerative colitisin remission, anemia, and chronic kidney disease presents for abnormal laboratory work. He saw his director of consumer affairs/oncologist Dr. Mcintyre for anemia today. He stated that that was fine, but he received a call that his potassium was high. He denies any symptoms. No chest pain, no shortness of breath, no fatigue. She still does make urine. Who presents because of reported hyperkalemia. [facility] Medical History Alcohol use Anemia Atherosclerotic heart disease of [place] coronary artery without angina pectoris Atrial fibrillation Atrial fibrillation and flutter Cardiology follow-up encounter Carotid artery stenosis CKD (chronic kidney disease) stage 3, GFR 30-59 ml/min Debility Dietary restriction Elevated troponin Emphysema of lung Essential hypertension Fever Former smoker General weakness Hematemesis/vomiting blood High cholesterol History of atrial fibrillation History of cardioversion (~05/09/20) History of coronary artery disease History of echocardiogram History of edema History of GI bleed History of right inguinal hernia History of stress test History of transesophageal echocardiography (ROSI) History of umbilical hernia Hx of ulcerative colitis Hypercholesterolemia Hyperkalemia Hyperlipidemia Hyperlipidemia Hypertension Hypertension Injury of head and neck 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 Mitral valve insufficiency Multiple excoriations PAD (peripheral artery disease) Palpitations Pancytopenia Premature atrial contractions Pulmonary hypertension Right carotid bruit Severe sinus bradycardia Subclavian artery stenosis, left (~10/15/19) Thrombocytopenia Thrombocytopenia Thyroid disease Ulcerative colitis Upper GI bleed Upper GI bleed Walker as ambulation aid Wears glasses Wears hearing aid Home Medications ferrous sulfate 325 mg (65 mg iron) tablet 325 mg PO DAILY vitamin 05/28/15 [History Last Taken 05/09/20] vitamin B complex 1 each PO DAILY vitamin 02/07/16 [History Last Taken 05/09/20] levothyroxine 50 mcg tablet 75 mcg PO DAILY thyroid 06/13/20 [History Last Taken Unknown] acetaminophen 500 mg tablet 1,000 mg (2 x 500 mg) PO Q6H PRN PRN Pain Score 1-5 #0 tabs 12/19/22 [Rx Last Taken Unknown] aspirin 81 mg tablet,delayed release 81 mg PO DAILY 04/14/23 [History Last Taken Unknown] atorvastatin 40 mg tablet (Lipitor) 40 mg PO DAILY cholesterol #90 tabs 04/14/23[Rx Last Taken Unknown] amlodipine 10 mg tablet 10 mg PO DAILY #90 tabs 05/20/23 [Rx Last Taken Unknown] lisinopril 20 mg tablet 20 mg PO DAILY #90 tabs 05/21/23 [Rx Last Taken Unknown] zinc acetate 50 mg (zinc) capsule 50 mg PO DAILY 09/29/23 [History Last Taken Unknown] hydralazine 50 mg tablet 100 mg PO BID 11/04/23 [History Last Taken Unknown] Allergy/AdvReac Type Severity Reaction Status Date / Time hydrochlorothiazide Allergy Severe Rash Verified 11/10/23 16:32 furosemide [From Lasix] Allergy Severe Verified 11/10/23 16:32 Rash Itchy lovastatin [From Mevacor] Allergy Rash Verified 11/10/23 16:32 Family History Father CAD (coronary artery disease) Mother Cancer breast Surgical History Aortocoronary bypass status (~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) History of cardiac catheterization History of hand surgery History of right inguinal hernia repair History of umbilical hernia repair History of vasectomy Hx of CABG Hx of colonoscopy Hx of esophagogastroduodenoscopy Hx of heart bypass surgery S/P right inguinal hernia repair S/P umbilical hernia repair, follow-up exam Status post insertion of drug-eluting stent into right coronary artery for coronary artery disease (~04/2009) Social History adopted: No household members: spouse housing: house number of children: 2 current occupational status: retired Smoking Status: Former smoker Tobacco: How many years used: 50 (stopped about 10 yrs ago) how long ago did patient quit smokin years ago alcohol intake: current alcohol intake frequency: 3 or more drinks per day Alcohol type: beer, wine and hard liquor substance use type: does not use caffeine: Yes Type: coffee Number of servings: 2 ROS ROS ED ROS Narrative Constitutional: No fever, no chills. HEENT: No sore throat. No neck pain. No loss of vision. No rhinorrhea. Cardiovascular: No chest pain. No palpitations. No pedal edema. Respiratory: No cough, no shortness of breath. Abdominal: No abdominal pain. No nausea. No vomiting. Genitourinary: No dysuria. No hematuria. Musculoskeletal: No myalgias. No arthralgias. Neurologic: No headaches. No dizziness. No lightheadedness. Skin: No rash. No change in color. Psychiatric: No depression. No anxiety. EXAM Physical Exam Narrative Exam Narrative: Afebrile. Vital signs noted. HEENT: Normocephalic. Atraumatic. PERRL, EOMI. Neck soft and supple. No pointtenderness or step off. Cardiovascular: Regular rate irregular heart rate and regular rhythm. No murmurs, rubs, or gallops appreciated. Respiratory: No tachypnea. Lungs clear to auscultation bilaterally. Gastrointestinal: Abdomen soft, nontender, with normoactive bowel sounds. No rebound or guarding. Neurological: Awake. Alert. Nonfocal, nonlateralizing. Ambulatory in ED to room. Skin: No rash. Normal color. No pallor. Musculoskeletal: No pedal edema. Full range of motion extremities. Const Vital Signs: 11/10/23 16:31 11/10/23 17:49 11/10/23 17:50 Temperature 98 F Temperature Source Temporal Pulse Rate 79 70 Respiratory Rate 16 13 Respiratory Effort Normal Non-Labored Respiratory Pattern Normal Blood Pressure 152/72 H 172/69 H Blood Pressure Mean 98 103 Pulse Ox 97 99 Oxygen Delivery Method Room Air Room Air MDM MDM MDM Narrative Medical decision making narrative: I reviewed his laboratory work from today and his creatinine is elevated at 2.5 with potassium of 6.2. In the differential diagnosis is hyperkalemia secondary to acute on chronic renal failure versus laboratory error. His laboratory work will be repeated and EKG will be obtained as well. He will be bolused normal saline 1 L intravenously. I reviewed his prior laboratory work as well. EKG was obtained and interpreted by myself independently as atrial fibrillation at 74 bpm without other ectopy or acute ST changes. No STEMI. I do not appreciate extremely peaked T waves. I do not feel calcium is indicated. Patient is asymptomatic with this. In review of his laboratory work from today,here in the emergency department, I his hemoglobin is stable at 9.9 with platelet count 131. Of most significance is his potassium is lowered at 5.4 with his creatinine 2.6, at his baseline, glucose of 128 and anion gap normal at5. I was going to give the patient Kayexalate, but it is contraindicated in his ulcerative colitis although he states that it is in remission. He will be giveninsulin and dextrose. I discussed patient with Dr. Mcintyre who agrees that the patient can receive this medication and then have his potassium rechecked in 1 to 2 days. As he is asymptomatic I feel he can be discharged safely home with follow- up. Return instructions to the emergency department were reviewed. I donot feel that he requires admission for his hyperkalemia at this time. Disposition is discharged home in stable condition. History & Record Review Discussion w/independent historian: Patient Lab Data Attestation: I reviewed the patient's lab results. Labs: Laboratory Results - last 24 hr 11/10/23 17:35 WBC 5.1 RBC 2.97 L Hgb 9.9 L Hct 31.4 L MCV 105.7 H MCH 33.3 H MCHC 31.5 L RDW Std Deviation 55.3 H RDW Coeff of Chanel 14.0 Plt Count 131 L MPV 9.5 Immature Gran % (Auto) 0.200 Neut % (Auto) 64.1 Lymph % (Auto) 18.7 L Kendall % (Auto) 10.1 H Eos % (Auto) 6.1 H Baso % (Auto) 0.8 Absolute Neuts (auto) 3.3 Absolute Lymphs (auto) 0.95 Nucleated RBC % 0 Sodium 140 Potassium 5.4 H Chloride 114 H Carbon Dioxide 21.0 Anion Gap 5 BUN 59 H Creatinine 2.60 H Estim Creat Clear Calc 22.62 Est GFR (MDRD) Af Amer 31 L Est GFR (MDRD) Non-Af 25 L BUN/Creatinine Ratio 22.7 H Glucose 128 H Calcium 9.0 Discharge Plan Triage Chief Complaint: Abn Labs ED Provider: Hans Armendariz Dx/Rx/DC Orders Clinical Impression: Chronic kidney insufficiency, Hyperkalemia Instructions: ED Chronic Kidney Disease (CKD), ED Hyperkalemia Prescriptions: No Action aspirin 81 mg tablet,delayed release (DR/EC) 81 mg PO DAILY zinc acetate 50 mg (zinc) capsule 50 mg PO DAILY ferrous sulfate 325 MG tablet 325 mg PO DAILY Patient Comments: Iron supplement vitamin B complex 1 EACH capsule 1 each PO DAILY Patient Comments: Vitamin supplement acetaminophen 500 mg Tablet 1,000 mg PO Q6H PRN PRN (Reason: Pain Score 1-5) Qty: 0 0RF levothyroxine 50 mcg tablet 75 mcg PO DAILY atorvastatin [Lipitor] 40 mg tablet 40 mg PO DAILY Qty: 90 3RF amlodipine 10 mg tablet 10 mg PO DAILY Qty: 90 3RF lisinopril 20 mg tablet 20 mg PO DAILY Qty: 90 3RF hydralazine 50 mg tablet 100 mg PO BID Primary Care Provider: Rosa Maria Santacruz Referrals: Rosa Maria Santacruz MD [Primary Care Provider] - 2 Days Mathieu Mcintyre MD [Med Staff - Active Staff] - 2 Days Activity Restrictions/Additional Instructions: Have your potassium rechecked in 1 to 2 days by your primary care physician or Dr. Mcintyre Disposition Disposition: Home, Self Care What to do if you have Problems For any increased pain, shortness of breath, bleeding, nausea or vomiting, chestpain, or any unexpected problems, contact your Primary Care Provider. Call [facility] ([phone]) or report to the closest Emergency Room. Call 911 if necessary. 11/10/231913 <Electronically signed by Hans Armendariz MD> Cosigner Signature (if applicable): CC: Dr. Rosa Maria Santacruz MD ~ Signed [facility] Work Phone: 1(117) 578-474505-13-2024 Hospital Discharge instructions Additional Instructions Have your potassium rechecked in 1 to 2 days by your primary care physician or Dr. Dozier [facility] Work Phone: 1(872) 295-252703-13-2024 Progress note Author Wraren Sampson [facility] September 10, 2023 1:53pm Note Date/Time September 10, 2023 1:5 3pm [facility] [address] [place] [address] Progress Note - Wound Care 09/10/23 1351 MR#: [id number] Acct: [id number] Name: AMAURY BLANK Rep #:[id number] : 1940 83 From: Warren Wallace PM PCP: Dr. Rosa Maria Santacruz MD Status:REG RCR Location: History of Present Illness Date of Service: 09/10/23 Chief Complaint: Left foot ulcerations History of Wound: Chronic wounds left foot self treatment as well as SNF treatment Subjective Subjective Mr. Blank is a 82-year-old male presenting for follow-up of bilateral leg ulcerations. Patient states that home health care has come to his home for dressing changes Friday. He presents today to the wound care center for follow-up evaluation. Patient has a new area of concern to the He denies any recent falls. He denies codistal lateral ankle of the right lower extremity. He is unsure how it happened. He denies any trauma to the area. Hstitutional symptoms. No other pedal complaints at this time. Objective Data Objective Data Vital Signs: Vital Signs Temp Pulse Resp BP Pulse Ox O2 Del Method O2 Flow Rate 96.7 F L 79 18 153/65 H 100 Room Air 2 09/10/23 12:59 09/10/23 12:59 09/10/23 12:59 09/10/23 12:59 08/29/23 00:25 09/10/23 12:59 08/29/23 00:25 Oxygen Flow Rate (L/min) 2 Oxygen Delivery Method Room Air Lab / Micro Data Micro: Microbiology 09/03/23 13:19 Wound - Ankle Gram Stain - Final 09/03/23 13:19 Wound - Ankle Wound Culture - Final No growth aerobically. 09/03/23 13:19 Wound - Ankle Anaerobic Culture - Final No anaerobic bacteria isolated. Physical Exam Narrative Vascular: DP and PT pulses are faintly palpable. CFT is delayed. Evidence of hemosiderin deposits appreciated bilateral lower extremity. Skin temperature great is warm to warm from proximal ankle to distal digit. Nonpitting edema appreciated to the right lower extremity. No erythema appreciated to the right ankle. Neurological: Light touch intact. Epicritic sensation is diminished. Patient does not respond to painful stimuli. Dermatological: Full-thickness ulceration to the right anterior medial leg is now healed. Full-thickness ulceration of distal lateral aspect of the right ankle is now healed. No erythema drainage or sign of infection. Musculoskeletal: No pain on palpation or with sharp debridement to both ulcerations to the left foot. No pain with calf compression. Debridement Note Debridement Note Post-Debridement Measurements and Additional Note: Post-Debridement Measurements/Treatment WC - Nurse 1 - General Ulcer Assessment Start: 09/03/23 13:02 Freq: Status: Active Protocol: GE Activity Type Activity Date Activity User E-sign Co-sign Detail Recorded Client Recorded Date Recorded By Document 09/03/23 13:02 [employer] 09/03/23 13:09 KW Document 09/10/23 12:59 KW Desktop 09/10/23 13:09 KW 09/03/23 09/10/23 13:02 12:59 - Today's Visit Information Type of service Follow-up Visit Follow-up Visit (Physician/BOAT REPAIRER (Physician/BOAT REPAIRER ) ) Arrival Mode Ambulatory, Ambulatory, Walker Walker Patient Identification Verified (Name & Yes Yes ) Vital Signs Temperature (97.8 F-99.1 F) 96.7 F L Temperature Source Temporal Pulse Rate (60-100) 78 79 Pulse Location Monitor Monitor Respiratory Rate (12-18) 18 18 Respiratory rate source Observation Observation Oxygen Delivery Method Room Air Room Air Blood Pressure (90/60-120/80) 141/60 H 153/65 H Blood Pressure Mean (mm Hg) 87 94 Source Monitor Monitor Position Semi-Fowlers Semi-Fowlers Blood Pressure Location Left Arm Left Arm History Since Last Visit- (Skip if this is Patient's initial visit) Have you changed medications since your No Yes last visit? Any new allergies or adverse reactions No No Had a fall/change in ADL's that may No No increase risk of falls Signs or symptoms of abuse and/or No No neglect since last visit Have you been in the hospital since your No Yes last visit? Has dressing in place as prescribed No Yes Has compression in place as prescribed N/A N/A Has offloadiing in place as prescribed N/A N/A Experienced any changes in pain level or No No management Left Footwear Regular Shoe Regular Shoe Right Footwear Regular Shoe Regular Shoe Pain Scale: 0-10 Numeric Is Patient Pain Free? Yes Yes - Nurse 1 - General Ulcer Measurement Start: 09/03/23 13:02 Freq: Status: Active Protocol: Activity Type Activity Date Activity User E-sign Co-sign Detail Recorded Client Recorded Date Recorded By Document 09/03/23 13:02 [employer]W [employer] 09/03/23 13:09 KW Document 09/10/23 12:59 KW [employer] 09/10/23 13:09 KW 09/03/23 09/10/23 13:02 12:59 Wound Center Nurse 1 7-right anterior ankle -Current Size (cm) - Length 0.1 -Current Size (cm) - Width 0.1 -Current Size (cm) - Depth 0.1 -Total Square Cm 0.01 -Ulcer Cleansing Rinsed/ Irrigated with Saline -Foul Odor after Cleansing No -Wound Comment(s) NO LIDOCAINE APPLIED #6 R lateral leg -Current Size (cm) - Length 0 -Current Size (cm) - Width 0 -Current Size (cm) - Depth 0 -Total Square Cm 0 -Ulcer Cleansing Rinsed/ Irrigated with Saline -Wound Comment(s) No lidocaine used #4 R Med LE/ Trauma -Current Size (cm) - Length 0 -Current Size (cm) - Width 0 -Current Size (cm) - Depth 0 -Total Square Cm 0 -Ulcer Cleansing Rinsed/ Irrigated with Saline -Wound Comment(s) no lidocaine used Right Calf (cm) 34.6 Right Ankle (cm) 22.5 WC - Nurse 2 - General Ulcer CM Notes Start: 09/03/23 13:02 Freq: Status: Active Protocol: Activity Type Activity Date Activity User E-sign Co-sign Detail Recorded Client Recorded Date Recorded By Document 09/03/23 13:13 [employer] 09/03/23 13:19 Document 09/10/23 13:22 JF [employer]aptop 09/10/23 13:23 JF 09/03/23 09/10/23 13:13 13:22 Wound Center Nurse 2 7-right anterior ankle -Time 13:18 -Correct Patient Yes No -Correct Side, Site, Position Yes No -Correct Procedure Yes No -Procedure Performed Yes No -Type of Procedure Debridement -Clinical Debridement Subcutaneous -Tissue Removed Subcutaneous -Post Debridement (cm) - Length 0.2 0 -Post Debridement (cm) - Width 0.2 0 -Post Debridement (cm) - Depth 0.3 0 -Total Square (Post) (cm) 0.04 0 -Area of Debridement (cm) - Length 0.2 0 -Area of Debridement (cm) - Width 0.2 0 -Total Square (Area) (cm) 0.04 0 -Tunneling No -Undermining/Tunneling No -Circular Undermining No -Wound/Ulcer Outcome Not Healed Healed- Epithelialized -Ulcer Cleansing Rinsed/ Irrigated with Saline -Foul Odor after Cleansing No -Bioengineered Tissue No -Bleeding Controlled with Pressure -Treatment Response Procedure Tolerated Well -Offloading No -Debridement - Subq, 1st 20sq cm Yes #6 R lateral leg -Correct Patient No -Correct Side, Site, Position No -Correct Procedure No -Procedure Performed No -Post Debridement (cm) - Length 0 -Post Debridement (cm) - Width 0 -Post Debridement (cm) - Depth 0 -Total Square (Post) (cm) 0 -Area of Debridement (cm) - Length 0 -Area of Debridement (cm) - Width 0 -Total Square (Area) (cm) 0 -Wound/Ulcer Outcome Healed- Epithelialized #4 R Med LE/ Trauma -Correct Patient No -Correct Side, Site, Position No -Correct Procedure No -Procedure Performed No Pain Scale: 0-10 Numeric Is Patient Pain Free? Yes Yes WC - Nurse 3 - General Ulcer D/C NN Start: 09/03/23 13:02 Freq: Status: Active Protocol: Activity Type Activity Date Activity User E-sign Co-sign Detail Recorded Client Recorded Date Recorded By Document 09/03/23 13:22 Desktop 09/03/23 13:23 JF Document 09/10/23 13:23 JF Laptop 09/10/23 13:30 JF Edit Result 09/10/23 13:23 JF (1) Laptop 09/10/23 13:30 JF (1) Left - Tubular Bandage => Single Layer - Size of Tubigrip Used => Size E - Size E ($) => 1 Right - Tubular Bandage => Single Layer - Size of Tubigrip Used => Size E - Size E ($) => 1 09/03/23 09/10/23 13:22 13:23 Wound Care Center Nurse 3 7-right anterior ankle -Other Dressing betadine and bandaid Left -Tubular Bandage Single Layer -Size of Tubigrip Used Size E -Size E ($) 1 Right -Tubular Bandage Single Layer -Size of Tubigrip Used Size E -Size E ($) 1 -Other patient states he has tubigrips at home and does not want one today. Pain Scale: 0-10 Numeric Is Patient Pain Free? Yes Yes WC - Visit Discharge Discharge Condition Stable Stable Ambulatory Status Ambulatory, Ambulatory, Walker Walker Transportation Private Auto Private Auto Medication Reconcilliation completed & Yes Yes provided to patient/care provider Clinical Summary of Care Provided Yes Yes Assessment/Plan Assessment/Plan (1) Non-pressure chronic ulcer of unspecified part of right lower leg with fat layer exposed: CODE(S): L97.912 - Non-pressure chronic ulcer of unspecified part of rightlower leg with fat layer exposed PLAN: Patient was examined and evaluated. All findings were discussed with the patient. All questions were answered to the patient's satisfaction. Patient's right lower extremity full-thickness ulcerations are now healed. Patient will continue his antibiotic as written. Educated the patient that he needs to wear compression at all times when walking. He was understanding of this. Prescription for compression stockings were dispensed to the patient to be measured and fitted at drug [facility]. Patient did state that he has multiple Tubigrip's and will use those until he needs to go to drug [facility]. He will continue to take the antibiotic as written. He is grateful for his care. It was educated the patient if he has any new issues she is to follow-up with Dr. Sampson in his private office. He was understanding of this. Patient is grateful for his care and will follow-up as needed. 09/10/23 1936 <Electronically signed by Warren Sampson DPM> Cosigner Signature (if applicable): CC: ~ Signed [facility] Work Phone: 1(769) 492-920503-06-2024 Progress note Author Warren Sampson [facility] September 03, 2023 1:25pm Note Date/Time September 03, 2023 1:25 pm [facility] [address] [place] [address] Progress Note - Wound Care 09/03/23 1322 MR#: [id number] Acct: [id number] Name: AMAURY BLANK Rep #:[id number] : 1940 83 From: Warren Wallace PM PCP: Dr. Rosa Maria Santacruz MD Status:REG RCR Location: History of Present Illness Date of Service: 09/03/23 Chief Complaint: Left foot ulcerations History of Wound: Chronic wounds left foot self treatment as well as SNF treatment Subjective Subjective Mr. Blank is a 82-year-old male presenting for follow-up of bilateral leg ulcerations. Patient states that home health care has come to his home for dressing changes Friday. He presents today to the wound care center for follow-up evaluation. Patient has a new area of concern to the He denies any recent falls. He denies codistal lateral ankle of the right lower extremity. He is unsure how it happened. He denies any trauma to the area. Hstitutional symptoms. No other pedal complaints at this time. Objective Data Objective Data Vital Signs: Vital Signs Temp Pulse Resp BP Pulse Ox O2 Del Method O2 Flow Rate 97.3 F L 78 18 141/60 H 100 Room Air 2 08/29/23 00:25 09/03/23 13:02 09/03/23 13:02 09/03/23 13:02 08/29/23 00:25 09/03/23 13:02 08/29/23 00:25 Oxygen Flow Rate (L/min) 2 Oxygen Delivery Method Room Air Physical Exam Narrative Vascular: DP and PT pulses are faintly palpable. CFT is delayed. Evidence of hemosiderin deposits appreciated bilateral lower extremity. Skin temperature great is warm to warm from proximal ankle to distal digit. Nonpitting edema appreciated to the right lower extremity. Blanchable erythema appreciated to the right ankle. No focal increase noted. Neurological: Light touch intact. Epicritic sensation is diminished. Patient does not respond to painful stimuli. Dermatological: Full-thickness ulceration to the right anterior medial leg is now healed. Evidence of new full-thickness ulceration appreciated to the distal lateral aspect of the right ankle. Ulceration measures 0.2 x 0.2 x 0.3 cm. Evidence of blanchable erythema. No drainage. No malodor. No probe to bone. Excisional debridement down to and including subcutaneous tissue with a number 1mm dermal curette without incident. Predebridement measurement was callus. Postdebridement measurement 0.2 x 0.2 x 0.3 cm. Musculoskeletal: No pain on palpation or with sharp debridement to both ulcerations to the left foot. No pain with calf compression. Debridement Note Debridement Note Debridement Free Text: Excisional debridement down to and including subcutaneoustissue with a number 1 mm dermal curette without incident. Predebridement measurement was callus. Postdebridement measurement 0.2 x 0.2 x 0.3 cm. Post-Debridement Measurements and Additional Note: Post-Debridement Measurements/Treatment - Nurse 1 - General Ulcer Assessment Start: 09/03/23 13:02 Freq: Status: Active Protocol: STEVE.ELA Activity Type Activity Date Activity User E-sign Co-sign Detail Recorded Client Recorded Date Recorded By Document 09/03/23 13:02 KW Desktop 09/03/23 13:09 KW 09/03/23 13:02 - Today's Visit Information Type of service Follow-up Visit (Physician/BOAT REPAIRER ) Arrival Mode Ambulatory, Walker Patient Identification Verified (Name & Yes ) Vital Signs Pulse Rate (60-100) 78 Pulse Location Monitor Respiratory Rate (12-18) 18 Respiratory rate source Observation Oxygen Delivery Method Room Air Blood Pressure (90/60-120/80) 141/60 H Blood Pressure Mean (mm Hg) 87 Source Monitor Position Semi-Fowlers Blood Pressure Location Left Arm History Since Last Visit- (Skip if this is Patient's initial visit) Have you changed medications since your No last visit? Any new allergies or adverse reactions No Had a fall/change in ADL's that may No increase risk of falls Signs or symptoms of abuse and/or No neglect since last visit Have you been in the hospital since your No last visit? Has dressing in place as prescribed No Has compression in place as prescribed N/A Has offloadiing in place as prescribed N/A Experienced any changes in pain level or No management Left Footwear Regular Shoe Right Footwear Regular Shoe Pain Scale: 0-10 Numeric Is Patient Pain Free? Yes WC - Nurse 1 - General Ulcer Measurement Start: 09/03/23 13:02 Freq: Status: Active Protocol: Activity Type Activity Date Activity User E-sign Co-sign Detail Recorded Client Recorded Date Recorded By Document 09/03/23 13:02 KW Desktop 09/03/23 13:09 KW 09/03/23 13:02 Wound Center Nurse 1 #6 R lateral leg -Current Size (cm) - Length 0 -Current Size (cm) - Width 0 -Current Size (cm) - Depth 0 -Total Square Cm 0 -Ulcer Cleansing Rinsed/ Irrigated with Saline -Wound Comment(s) No lidocaine used #4 R Med LE/ Trauma -Current Size (cm) - Length 0 -Current Size (cm) - Width 0 -Current Size (cm) - Depth 0 -Total Square Cm 0 -Ulcer Cleansing Rinsed/ Irrigated with Saline -Wound Comment(s) no lidocaine used Right Calf (cm) 34.6 Right Ankle (cm) 22.5 WC - Nurse 2 - General Ulcer CM Notes Start: 09/03/23 13:02 Freq: Status: Active Protocol: Activity Type Activity Date Activity User E-sign Co-sign Detail Recorded Client Recorded Date Recorded By Document 09/03/23 13:13 JF Desktop 09/03/23 13:19 09/03/23 13:13 Wound Center Nurse 2 #6 R lateral leg -Correct Patient No -Correct Side, Site, Position No -Correct Procedure No -Procedure Performed No -Post Debridement (cm) - Length 0 -Post Debridement (cm) - Width 0 -Post Debridement (cm) - Depth 0 -Total Square (Post) (cm) 0 -Area of Debridement (cm) - Length 0 -Area of Debridement (cm) - Width 0 -Total Square (Area) (cm) 0 -Wound/Ulcer Outcome Healed- Epithelialized #4 R Med LE/ Trauma -Correct Patient No -Correct Side, Site, Position No -Correct Procedure No -Procedure Performed No 7-right anterior ankle -Time 13:18 -Correct Patient Yes -Correct Side, Site, Position Yes -Correct Procedure Yes -Procedure Performed Yes -Type of Procedure Debridement -Clinical Debridement Subcutaneous -Tissue Removed Subcutaneous -Post Debridement (cm) - Length 0.2 -Post Debridement (cm) - Width 0.2 -Post Debridement (cm) - Depth 0.3 -Total Square (Post) (cm) 0.04 -Area of Debridement (cm) - Length 0.2 -Area of Debridement (cm) - Width 0.2 -Total Square (Area) (cm) 0.04 -Tunneling No -Undermining/Tunneling No -Circular Undermining No -Wound/Ulcer Outcome Not Healed -Ulcer Cleansing Rinsed/ Irrigated with Saline -Foul Odor after Cleansing No -Bioengineered Tissue No -Bleeding Controlled with Pressure -Treatment Response Procedure Tolerated Well -Offloading No -Debridement - Subq, 1st 20sq cm Yes Pain Scale: 0-10 Numeric Is Patient Pain Free? Yes Assessment/Plan Assessment/Plan (1) Non-pressure chronic ulcer of unspecified part of right lower leg with fat layer exposed: CODE(S): L97.912 - Non-pressure chronic ulcer of unspecified part of rightlower leg with fat layer exposed PLAN: Patient was examined and evaluated. All findings were discussed with the patient. All questions were answered to the patient's satisfaction. Excisional debridement down to and including subcutaneous tissue with a number 1mm dermal curette without incident. Predebridement measurement was callus. Postdebridement measurement 0.2 x 0.2 x 0.3 cm. The area was cultured. The ulceration was dressed with Betadine paint and sterile Band-Aid followed by single-layer Tubigrip. Patient was instructed to change the Band-Aid and apply Betadine daily. He was understanding of this. There is concern for infection and the patient will be placed on a dose of Keflex 3 times daily 500 mg for 2 weeks. Cultures will be monitored and will change antibiotics if needed. Follow-up at the wound care center with Dr. Sampson in 1 week. (2) Cellulitis of right leg: CODE(S): L03.115 - Cellulitis of right lower limb 09/03/23 1325 <Electronically signed by Warren Sampson DPM> Cosigner Signature (if applicable): CC: ~ Signed [facility] Work Phone: 1(767) 186-410102-28-2024 Progress note Author Warren Sampson [facility] August 27, 2023 1:25pm Note Date/Time August 27, 2023 1:25pm [facility] [address] [place] [address] Progress Note - Wound Care 08/27/23 1323 MR#: [id number] Acct: [id number] Name: AMAURY BLANK Rep #:[id number] : 1940 83 From: Warren MARTINEZ PCP: Dr. Rosa Maria Santacruz MD Status:REG RCR Location: History of Present Illness Date of Service: 08/27/23 Chief Complaint: Left foot ulcerations History of Wound: Chronic wounds left foot self treatment as well as SNF treatment Subjective Subjective Mr. Blank is a 82-year-old male presenting for follow-up of bilateral leg ulcerations. Patient states that home health care has come to his home for dressing changes Friday. He presents today to the wound care center for follow-up evaluation. He denies any recent falls. He denies constitutional symptoms. No other pedal complaints at this time. Objective Data Objective Data Vital Signs: Vital Signs Temp Pulse Resp BP Pulse Ox O2 Del Method O2 Flow Rate 97.3 F L 75 18 142/61 H 100 Room Air 2 08/27/23 13:01 08/27/23 13:01 08/27/23 13:01 08/27/23 13:01 07/31/23 00:13 08/27/23 13:01 07/31/23 00:13 Oxygen Flow Rate (L/min) 2 Oxygen Delivery Method Room Air Physical Exam Narrative Vascular: DP and PT pulses are faintly palpable. CFT is delayed. Evidence of hemosiderin deposits appreciated bilateral lower extremity. Skin temperature great is warm to warm from proximal ankle to distal digit. Nonpitting edema appreciated to the right lower extremity. No focal increase noted. Neurological: Light touch intact. Epicritic sensation is diminished. Patient does not respond to painful stimuli. Dermatological: Full-thickness ulceration to the right anterior medial leg is now healed. Evidence of diffuse excoriations appreciated to the proximal anterior right leg secondary to dressing, improved. No sign of infection. Musculoskeletal: No pain on palpation or with sharp debridement to both ulcerations to the left foot. No pain with calf compression. Debridement Note Debridement Note Post-Debridement Measurements and Additional Note: Post-Debridement Measurements/Treatment WC - Nurse 1 - General Ulcer Assessment Start: 08/06/23 14:08 Freq: Status: Active Protocol: WC.LOWEXT Activity Type Activity Date Activity User E-sign Co-sign Detail Recorded Client Recorded Date Recorded By Document 08/06/23 14:08 KW Desktop 08/06/23 14:20 KW Document 08/13/23 13:13 KW Desktop 08/13/23 13:17 KW Document 08/20/23 13:14 GM Desktop 08/20/23 13:18 GM Document 08/27/23 13:01 KW Desktop 08/27/23 13:06 KW 08/06/23 08/13/23 08/20/23 14:08 13:13 13:14 - Today's Visit Information Type of service Follow-up Visit Follow-up Visit Follow-up Visit (Physician/BOAT REPAIRER (Physician/BOAT REPAIRER (Physician/BOAT REPAIRER ) ) ) Arrival Mode Ambulatory, Ambulatory, Ambulatory, Walker Walker Walker Transfer Assistance None Patient Identification Verified (Name & Yes Yes Yes ) Vital Signs Temperature (97.8 F-99.1 F) 96.9 F L 97.3 F L Temperature Source Temporal Temporal Pulse Rate (60-100) 67 74 Pulse Location Monitor Monitor Monitor Respiratory Rate (12-18) 18 18 18 Respiratory rate source Observation Observation Observation Oxygen Delivery Method Room Air Room Air Room Air Blood Pressure (90/60-120/80) 149/57 H 144/63 H Blood Pressure Mean (mm Hg) 87 90 Source Monitor Monitor Position Semi-Fowlers Sitting Blood Pressure Location Right Arm Left Arm History Since Last Visit- (Skip if this is Patient's initial visit) Have you changed medications since your No No No last visit? Any new allergies or adverse reactions No No No Had a fall/change in ADL's that may No No No increase risk of falls Signs or symptoms of abuse and/or No No No neglect since last visit Have you been in the hospital since your No No No last visit? Has dressing in place as prescribed Yes Yes Yes Has compression in place as prescribed Yes No No Has offloadiing in place as prescribed N/A N/A N/A Experienced any changes in pain level or No No No management Left Footwear Regular Shoe Regular Shoe Regular Shoe Right Footwear Regular Shoe Regular Shoe Regular Shoe Pain Scale: 0-10 Numeric Is Patient Pain Free? Yes Yes Yes 08/27/23 13:01 - Today's Visit Information Type of service Follow-up Visit (Physician/BOAT REPAIRER ) Arrival Mode Ambulatory, Walker Transfer Assistance Patient Identification Verified (Name & Yes ) Vital Signs Temperature (97.8 F-99.1 F) 97.3 F L Temperature Source Temporal Pulse Rate (60-100) 75 Pulse Location Monitor Respiratory Rate (12-18) 18 Respiratory rate source Observation Oxygen Delivery Method Room Air Blood Pressure (90/60-120/80) 142/61 H Blood Pressure Mean (mm Hg) 88 Source Monitor Position Semi-Fowlers Blood Pressure Location Left Arm History Since Last Visit- (Skip if this is Patient's initial visit) Have you changed medications since your No last visit? Any new allergies or adverse reactions No Had a fall/change in ADL's that may No increase risk of falls Signs or symptoms of abuse and/or No neglect since last visit Have you been in the hospital since your No last visit? Has dressing in place as prescribed Yes Has compression in place as prescribed Yes Has offloadiing in place as prescribed N/A Experienced any changes in pain level or No management Left Footwear Regular Shoe Right Footwear Regular Shoe Pain Scale: 0-10 Numeric Is Patient Pain Free? Yes - Nurse 1 - General Ulcer Measurement Start: 08/06/23 14:08 Freq: Status: Active Protocol: Activity Type Activity Date Activity User E-sign Co-sign Detail Recorded Client Recorded Date Recorded By Document 08/06/23 14:08 KW Desktop 08/06/23 14:20 KW Document 08/13/23 13:13 KW Desktop 08/13/23 13:17 KW Document 08/20/23 13:14 Desktop 08/20/23 13:18 GM Document 08/27/23 13:01 KW Desktop 08/27/23 13:06 KW 08/06/23 08/13/23 08/20/23 14:08 13:13 13:14 Wound Center Nurse 1 #6 R lateral leg -Current Size (cm) - Length 2 -Current Size (cm) - Width 0.5 -Current Size (cm) - Depth 0.1 -Total Square Cm 1.0 -Date of Last Picture (Recall this 08/20/23 field) -Photo Taken Yes -Tunneling No -Undermining/Tunneling No -Circular Undermining No -Exudate Amt Small -Exudate Type Sanguineous -Wound Margin Distinct, Outline Attached -Granulation Amt Medium (34-66%) -Slough/Fibrin No -Necrosis Amt None Present (0 %) -Texture (Adelina-wound Skin Appearance) Assessed -Moisture (Adelina-wound Skin Appearance) Assessed -Color (Adelina-wound Skin Appearance) Assessed -Temperature (Adelina-wound Skin No Abnormality Appearance) (Pt Warm) -Ulcer Cleansing Soap and Water -Foul Odor after Cleansing No #4 R Med LE/ Trauma -Combined with (Name of Wound-Exactly 1.5 as it is documented) -Current Size (cm) - Length 0.1 0.5 7.0 -Current Size (cm) - Width 0.1 0.1 7.5 -Current Size (cm) - Depth 0.1 0.1 -Total Square Cm 0.01 0.05 52.50 -Photo Taken No -Epithelialization Small 1-33% -Tunneling No -Undermining/Tunneling No -Circular Undermining No -Exudate Amt Small Large -Exudate Type Serosanguineous Sanguineous -Wound Margin Distinct, Distinct, Outline Outline Attached Attached -Granulation Amt Large (67-100%) Medium (34-66%) -Granulation Quality Red Red -Necrosis Amt None Present (0 %) -Structure Exposed N/A -Texture (Adelina-wound Skin Appearance) Assessed Assessed -Moisture (Adelina-wound Skin Appearance) Assessed Assessed -Color (Adelina-wound Skin Appearance) Assessed Assessed -Temperature (Adelina-wound Skin No Abnormality No Abnormality Appearance) (Pt Warm) (Pt Warm) -Ulcer Cleansing Soap and Water Rinsed/ Soap and Water Irrigated with Saline -Foul Odor after Cleansing No -Anesthetic Used 5% Lidocaine 5% Lidocaine 4% Lidocaine Gel Gel Solution -Wound Comment(s) wound was scabbed over. #3 R Hodgson -Current Size (cm) - Length 0.1 -Current Size (cm) - Width 0.1 -Current Size (cm) - Depth 0.1 -Total Square Cm 0.01 -Temperature (Adelina-wound Skin No Abnormality Appearance) (Pt Warm) -Ulcer Cleansing Soap and Water -Anesthetic Used 5% Lidocaine Gel -Wound Comment(s) wound was scapped Right Calf (cm) 35.5 35.5 Right Ankle (cm) 22.3 22.5 08/27/23 13:01 Wound Center Nurse 1 #6 R lateral leg -Current Size (cm) - Length -Current Size (cm) - Width -Current Size (cm) - Depth -Total Square Cm -Date of Last Picture (Recall this field) -Photo Taken -Tunneling -Undermining/Tunneling -Circular Undermining -Exudate Amt -Exudate Type -Wound Margin -Granulation Amt -Slough/Fibrin -Necrosis Amt -Texture (Adelina-wound Skin Appearance) -Moisture (Adelina-wound Skin Appearance) -Color (Adelina-wound Skin Appearance) -Temperature (Adelina-wound Skin Appearance) -Ulcer Cleansing Soap and Water -Foul Odor after Cleansing #4 R Med LE/ Trauma -Combined with (Name of Wound-Exactly as it is documented) -Current Size (cm) - Length -Current Size (cm) - Width -Current Size (cm) - Depth -Total Square Cm -Photo Taken -Epithelialization -Tunneling -Undermining/Tunneling -Circular Undermining -Exudate Amt -Exudate Type -Wound Margin -Granulation Amt -Granulation Quality -Necrosis Amt -Structure Exposed -Texture (Adelina-wound Skin Appearance) -Moisture (Adelina-wound Skin Appearance) -Color (Adelina-wound Skin Appearance) -Temperature (Adelina-wound Skin Appearance) -Ulcer Cleansing Soap and Water -Foul Odor after Cleansing -Anesthetic Used -Wound Comment(s) #3 R Hodgson -Current Size (cm) - Length -Current Size (cm) - Width -Current Size (cm) - Depth -Total Square Cm -Temperature (Adelina-wound Skin Appearance) -Ulcer Cleansing -Anesthetic Used -Wound Comment(s) Right Calf (cm) 32.5 Right Ankle (cm) 22.1 WC - Nurse 2 - General Ulcer CM Notes Start: 08/06/23 14:08 Freq: Status: Active Protocol: Activity Type Activity Date Activity User E-sign Co-sign Detail Recorded Client Recorded Date Recorded By Document 08/06/23 14:31 Laptop 08/06/23 14:39 Document 08/13/23 13:25 Laptop 08/13/23 13:27 Document 08/20/23 13:41 Laptop 08/20/23 13:46 JF Edit Result 08/20/23 13:41 JF (1) [id number] 08/20/23 16:26 JF Document 08/27/23 13:12 JF Laptop 08/27/23 13:14 JF (1) #6 R lateral leg - Other Pressure Reduction => excoriation noted => to adelina-ulcer => which was => addressed with => adaptic. 08/06/23 08/13/23 08/20/23 14:31 13:25 13:41 Wound Center Nurse 2 #6 R lateral leg -Time 13:41 -Correct Patient No -Correct Side, Site, Position No -Correct Procedure No -Procedure Performed No -Tissue Removed -Post Debridement (cm) - Length -Post Debridement (cm) - Width -Post Debridement (cm) - Depth -Total Square (Post) (cm) -Area of Debridement (cm) - Length -Area of Debridement (cm) - Width -Total Square (Area) (cm) -Tunneling No -Undermining/Tunneling No -Circular Undermining No -Wound/Ulcer Outcome Not Healed -Ulcer Cleansing Rinsed/ Irrigated with Saline -Foul Odor after Cleansing No -Bioengineered Tissue No -Bleeding Controlled with Pressure -Treatment Response Procedure Tolerated Well -Offloading No -Other Pressure Reduction excoriation noted to adelina- ulcer which was addressed with adaptic. -Debridement - Subq, 1st 20sq cm No #4 R Med LE/ Trauma -Time 13:25 13:44 -Correct Patient Yes Yes Yes -Correct Side, Site, Position Yes Yes Yes -Correct Procedure Yes Yes Yes -Procedure Performed Yes Yes Yes -Type of Procedure Debridement Debridement Debridement -Clinical Debridement Subcutaneous Subcutaneous Subcutaneous -Tissue Removed Subcutaneous Subcutaneous Subcutaneous -Post Debridement (cm) - Length 2.0 1.9 1.5 -Post Debridement (cm) - Width 0.7 0.8 1.6 -Post Debridement (cm) - Depth 0.2 0.1 0.1 -Total Square (Post) (cm) 1.40 1.52 2.40 -Area of Debridement (cm) - Length 2.0 1.9 1.5 -Area of Debridement (cm) - Width 0.7 0.8 1.6 -Total Square (Area) (cm) 1.40 1.52 2.40 -Tunneling No No No -Undermining/Tunneling No No No -Circular Undermining No No No -Wound/Ulcer Outcome Not Healed Not Healed Not Healed -Ulcer Cleansing Rinsed/ Rinsed/ Rinsed/ Irrigated with Irrigated with Irrigated with Saline Saline Saline -Foul Odor after Cleansing No No No -Bioengineered Tissue Yes Yes Yes -Type of Bioengineered Tissue Epifix 18mm Epifix 18mm Epifix 18mm Disc Disc Disc -Expiration Date 03/30/28 03/30/28 03/30/28 -Product Lot Number [id number] -Percent Used 100 100 100 -Lot number of Saline Used [id number] -Bleeding Controlled with Pressure Silver Nitrate Pressure -Treatment Response Procedure Procedure Procedure Tolerated Well Tolerated Well Tolerated Well -Offloading No No No -Debridement - Subq, 1st 20sq cm No No No -Apply Skin Sub - 1st 25 sq cm - Legs 1 1 1 -Epifix 18mm Disc 3 3 3 #3 R Hodgson -Correct Patient No -Correct Side, Site, Position No -Correct Procedure No -Procedure Performed No -Post Debridement (cm) - Length 0 -Post Debridement (cm) - Width 0 -Post Debridement (cm) - Depth 0 -Total Square (Post) (cm) 0 -Area of Debridement (cm) - Length 0 -Area of Debridement (cm) - Width 0 -Total Square (Area) (cm) 0 -Wound/Ulcer Outcome Healed- Epithelialized Pain Scale: 0-10 Numeric Is Patient Pain Free? Yes Yes Yes 08/27/23 13:12 Wound Center Nurse 2 #6 R lateral leg -Time -Correct Patient No -Correct Side, Site, Position No -Correct Procedure No -Procedure Performed No -Tissue Removed Fascia -Post Debridement (cm) - Length 0 -Post Debridement (cm) - Width 0 -Post Debridement (cm) - Depth 0 -Total Square (Post) (cm) 0 -Area of Debridement (cm) - Length 0 -Area of Debridement (cm) - Width 0 -Total Square (Area) (cm) 0 -Tunneling -Undermining/Tunneling -Circular Undermining -Wound/Ulcer Outcome Healed- Epithelialized -Ulcer Cleansing -Foul Odor after Cleansing -Bioengineered Tissue -Bleeding Controlled with -Treatment Response -Offloading -Other Pressure Reduction -Debridement - Subq, 1st 20sq cm #4 R Med LE/ Trauma -Time -Correct Patient No -Correct Side, Site, Position No -Correct Procedure No -Procedure Performed No -Type of Procedure -Clinical Debridement -Tissue Removed -Post Debridement (cm) - Length 0 -Post Debridement (cm) - Width 0 -Post Debridement (cm) - Depth 0 -Total Square (Post) (cm) 0 -Area of Debridement (cm) - Length 0 -Area of Debridement (cm) - Width 0 -Total Square (Area) (cm) 0 -Tunneling -Undermining/Tunneling -Circular Undermining -Wound/Ulcer Outcome Healed- Epithelialized -Ulcer Cleansing -Foul Odor after Cleansing -Bioengineered Tissue -Type of Bioengineered Tissue -Expiration Date -Product Lot Number -Percent Used -Lot number of Saline Used -Bleeding Controlled with -Treatment Response -Offloading -Debridement - Subq, 1st 20sq cm -Apply Skin Sub - 1st 25 sq cm - Legs -Epifix 18mm Disc #3 R Hodgson -Correct Patient -Correct Side, Site, Position -Correct Procedure -Procedure Performed -Post Debridement (cm) - Length -Post Debridement (cm) - Width -Post Debridement (cm) - Depth -Total Square (Post) (cm) -Area of Debridement (cm) - Length -Area of Debridement (cm) - Width -Total Square (Area) (cm) -Wound/Ulcer Outcome Pain Scale: 0-10 Numeric Is Patient Pain Free? Yes WC - Nurse 3 - General Ulcer D/C NN Start: 08/06/23 14:08 Freq: Status: Active Protocol: Activity Type Activity Date Activity User E-sign Co-sign Detail Recorded Client Recorded Date Recorded By Document 08/06/23 14:45 DL Desktop 08/06/23 14:48 DL Edit Result 08/06/23 14:45 DL (1) Desktop 08/06/23 14:50 DL Document 08/13/23 13:32 KW Desktop 08/13/23 13:33 KW Document 08/20/23 14:02 GM Desktop 08/20/23 14:03 GM (1) Left - Tubular Bandage Double Layer => - Size E ($) 2 => Notes: => Pt refused Tubigrip to LLE Today 02/01/2008/13/23 08/20/23 14:45 13:32 14:02 Wound Care Center Nurse 3 #6 R lateral leg -Ulcer Cleansing Not Cleansed -Foul Odor after Cleansing No -Primary Dressing Covered/Secured with Dry Gauze, Secured with Tape #4 R Med LE/ Trauma -Ulcer Cleansing Not Cleansed Not Cleansed -Foul Odor after Cleansing No No -Primary Dressing Applied Mepilex Border Mepilex Border NonAdherent Contact Layer -Other Dressing epifix -Primary Dressing Covered/Secured with Dry Gauze & Roll Gauze, Secured with Tape -Mepilex Border 1 1 Right -Lotion applied to leg before No compression wrap -Tubular Bandage Double Layer Double Layer Double Layer -Size of Tubigrip Used Size E Size D Size D -Size D ($) 2 2 -Size E ($) 2 Left -Lotion applied to leg before No compression wrap -Tubular Bandage Double Layer -Size of Tubigrip Used Size E Size D -Size D ($) 2 Treatment Response Procedure Tolerated Well Pain Scale: 0-10 Numeric Is Patient Pain Free? Yes Yes Yes Teaching: Wound Center Dressing Your Wound -Person Taught Patient -Teaching Method Discussion, Demonstration -Response to teaching Verbalize understanding WC - Visit Discharge Discharge Condition Stable Stable Stable Ambulatory Status Ambulatory Ambulatory, Ambulatory, Walker Walker Transportation Private Auto Private Auto Private Auto Medication Reconcilliation completed & No Yes provided to patient/care provider Clinical Summary of Care Provided Yes Yes Notes: Pt refused Tubigrip to LLE Today Facility Type Home Health Orders Sent Yes Assessment/Plan Assessment/Plan (1) Non-pressure chronic ulcer of unspecified part of right lower leg with fat layer exposed: CODE(S): L97.912 - Non-pressure chronic ulcer of unspecified part of rightlower leg with fat layer exposed PLAN: Patient was examined and evaluated. All findings were discussed with the patient. All questions were answered to the patient's satisfaction. Patient's right proximal full-thickness ulceration is now healed. Educated the patient to continue to check his bilateral lower extremity twice a day and applylotion to keep his skin nice and supple. Patient was understanding of this. The proximal right leg healed ulceration was dressed with Adaptic dry sterile dressing and a single-layer Tubigrip. Patient was given the okay to shower. Follow-up at the wound care center with Dr. Sampson in 1 week. (2) Multiple excoriations: CODE(S): T07.XXXA - Unspecified multiple injuries, initial encounter PLAN: The patient's right lower extremity excoriations have healed. (3) Edema: CODE(S): R60.9 - Edema, unspecified QUALIFIERS: Edema type: generalized Qualified Code(s): R60.1 - Generalized edema (4) Dermatitis: CODE(S): L30.9 - Dermatitis, unspecified PLAN: Offending agent, offloading foam was removed from the patient's right lower extremity would not be replaced. 08/27/23 1325 <Electronically signed by Warren Sampson DPM> Cosigner Signature (if applicable): CC: ~ Signed [facility] Work Phone: [phone] 247-748402-21-2024 Progress note Author Warren Sampson [facility] August 20, 2023 1:50pm Note Date/Time August 20, 2023 1:50pm [facility] [address] [place] [id number] Progress Note - Wound Care 08/20/23 1344 MR#: [id number] Acct: [id number] Name: AMAURY BLANK Rep #:[id number] : 1940 83 From: Warren Sampson D PM PCP: Dr. Rosa Maria Santacruz MD Status:REG R Location: History of Present Illness Date of Service: 08/20/23 Chief Complaint: Left foot ulcerations History of Wound: Chronic wounds left foot self treatment as well as SNF treatment Subjective Subjective Mr. Blank is a 82-year-old male presenting for follow-up of bilateral leg ulcerations. Patient states that home health care has come to his home for dressing changes Friday. He presents today to the wound care center for follow-up evaluation. He denies any recent falls. He denies constitutional symptoms. No other pedal complaints at this time. Objective Data Objective Data Vital Signs: Vital Signs Temp Pulse Resp BP Pulse Ox O2 Del Method O2 Flow Rate 97.3 F L 74 18 144/63 H 100 Room Air 2 08/20/23 13:14 08/20/23 13:14 08/20/23 13:14 08/20/23 13:14 07/31/23 00:13 08/20/23 13:14 07/31/23 00:13 Oxygen Flow Rate (L/min) 2 Oxygen Delivery Method Room Air Physical Exam Narrative Vascular: DP and PT pulses are faintly palpable. CFT is delayed. Evidence of hemosiderin deposits appreciated bilateral lower extremity. Skin temperature great is warm to warm from proximal ankle to distal digit. Nonpitting edema appreciated to the right lower extremity. No focal increase noted. Neurological: Light touch intact. Epicritic sensation is diminished. Patient does not respond to painful stimuli. Dermatological: Full-thickness ulceration to the right anterior medial leg measures 1.5 x 1.6 x 0.1 cm. All wounds are under percent granular nature. Evidence of diffuse excoriations appreciated to the proximal anterior right leg secondary to dressing. No sign of infection. Excisional debridement with 5 mm dermal curette down to and including subcutaneous tissue, to the right proximal medial leg ulceration without incident. Predebridement measurement is sanguinous crust. Post debrdiement measurement is 1.5 x 1.6 x 0.1 cm. EpiFix 18 mm disc was applied to the right proximal full-thickness ulceration with 100% use. Sixth application. The graft site was free and clear of any infection. The wound/skin graft substitute was dressed with nonadherent bandagesecured in place with Steri-Strips followed by bolster dressing as well as a double layer Tubigrip. Musculoskeletal: No pain on palpation or with sharp debridement to both ulcerations to the left foot. No pain with calf compression. Debridement Note Debridement Note Debridement Free Text: Excisional debridement with 5 mm dermal curette down to and including subcutaneous tissue, to the right proximal medial leg ulceration without incident. Predebridement measurement is sanguinous crust. Post debrdiement measurement is 1.5 x 1.6 x 0.1 cm. EpiFix 18 mm disc was applied to the right proximal full-thickness ulceration with 100% use. Sixth application. The graft site was free and clear of any infection. The wound/skin graft substitute was dressed with nonadherent bandagesecured in place with Steri-Strips followed by bolster dressing as well as a double layer Tubigrip. Post-Debridement Measurements and Additional Note: Post-Debridement Measurements/Treatment WC - Nurse 1 - General Ulcer Assessment Start: 08/06/23 14:08 Freq: Status: Active Protocol: [email or web address] Activity Type Activity Date Activity User E-sign Co-sign Detail Recorded Client Recorded Date Recorded By Document 08/06/23 14:08 KW Desktop 08/06/23 14:20 KW Document 08/13/23 13:13 KW Desktop 08/13/23 13:17 KW Document 08/20/23 13:14 GM Desktop 08/20/23 13:18 GM 08/06/23 08/13/23 08/20/23 14:08 13:13 13:14 - Today's Visit Information Type of service Follow-up Visit Follow-up Visit Follow-up Visit (Physician/BOAT REPAIRER (Physician/BOAT REPAIRER (Physician/BOAT REPAIRER ) ) ) Arrival Mode Ambulatory, Ambulatory, Ambulatory, Walker Walker Walker Transfer Assistance None Patient Identification Verified (Name & Yes Yes Yes ) Vital Signs Temperature (97.8 F-99.1 F) 96.9 F L 97.3 F L Temperature Source Temporal Temporal Pulse Rate (60-100) 67 74 Pulse Location Monitor Monitor Monitor Respiratory Rate (12-18) 18 18 18 Respiratory rate source Observation Observation Observation Oxygen Delivery Method Room Air Room Air Room Air Blood Pressure (90/60-120/80) 149/57 H 144/63 H Blood Pressure Mean (mm Hg) 87 90 Source Monitor Monitor Position Semi-Fowlers Sitting Blood Pressure Location Right Arm Left Arm History Since Last Visit- (Skip if this is Patient's initial visit) Have you changed medications since your No No No last visit? Any new allergies or adverse reactions No No No Had a fall/change in ADL's that may No No No increase risk of falls Signs or symptoms of abuse and/or No No No neglect since last visit Have you been in the hospital since your No No No last visit? Has dressing in place as prescribed Yes Yes Yes Has compression in place as prescribed Yes No No Has offloadiing in place as prescribed N/A N/A N/A Experienced any changes in pain level or No No No management Left Footwear Regular Shoe Regular Shoe Regular Shoe Right Footwear Regular Shoe Regular Shoe Regular Shoe Pain Scale: 0-10 Numeric Is Patient Pain Free? Yes Yes Yes - Nurse 1 - General Ulcer Measurement Start: 08/06/23 14:08 Freq: Status: Active Protocol: Activity Type Activity Date Activity User E-sign Co-sign Detail Recorded Client Recorded Date Recorded By Document 08/06/23 14:08 KW Desktop 08/06/23 14:20 KW Document 08/13/23 13:13 KW Desktop 08/13/23 13:17 KW Document 08/20/23 13:14 Desktop 08/20/23 13:18 GM 08/06/23 08/13/23 08/20/23 14:08 13:13 13:14 Wound Center Nurse 1 #3 R Hodgson -Current Size (cm) - Length 0.1 -Current Size (cm) - Width 0.1 -Current Size (cm) - Depth 0.1 -Total Square Cm 0.01 -Temperature (Adelina-wound Skin No Abnormality Appearance) (Pt Warm) -Ulcer Cleansing Soap and Water -Anesthetic Used 5% Lidocaine Gel -Wound Comment(s) wound was scapped #6 R lateral leg -Current Size (cm) - Length 2 -Current Size (cm) - Width 0.5 -Current Size (cm) - Depth 0.1 -Total Square Cm 1.0 -Date of Last Picture (Recall this 08/20/23 field) -Photo Taken Yes -Tunneling No -Undermining/Tunneling No -Circular Undermining No -Exudate Amt Small -Exudate Type Sanguineous -Wound Margin Distinct, Outline Attached -Granulation Amt Medium (34-66%) -Slough/Fibrin No -Necrosis Amt None Present (0 %) -Texture (Adelina-wound Skin Appearance) Assessed -Moisture (Adelina-wound Skin Appearance) Assessed -Color (Adelina-wound Skin Appearance) Assessed -Temperature (Adelina-wound Skin No Abnormality Appearance) (Pt Warm) -Ulcer Cleansing Soap and Water -Foul Odor after Cleansing No #4 R Med LE/ Trauma -Combined with (Name of Wound-Exactly 1.5 as it is documented) -Current Size (cm) - Length 0.1 0.5 7.0 -Current Size (cm) - Width 0.1 0.1 7.5 -Current Size (cm) - Depth 0.1 0.1 -Total Square Cm 0.01 0.05 52.50 -Photo Taken No -Epithelialization Small 1-33% -Tunneling No -Undermining/Tunneling No -Circular Undermining No -Exudate Amt Small Large -Exudate Type Serosanguineous Sanguineous -Wound Margin Distinct, Distinct, Outline Outline Attached Attached -Granulation Amt Large (67-100%) Medium (34-66%) -Granulation Quality Red Red -Necrosis Amt None Present (0 %) -Structure Exposed N/A -Texture (Adelina-wound Skin Appearance) Assessed Assessed -Moisture (Adelina-wound Skin Appearance) Assessed Assessed -Color (Adelina-wound Skin Appearance) Assessed Assessed -Temperature (Adelina-wound Skin No Abnormality No Abnormality Appearance) (Pt Warm) (Pt Warm) -Ulcer Cleansing Soap and Water Rinsed/ Soap and Water Irrigated with Saline -Foul Odor after Cleansing No -Anesthetic Used 5% Lidocaine 5% Lidocaine 4% Lidocaine Gel Gel Solution -Wound Comment(s) wound was scabbed over. Right Calf (cm) 35.5 35.5 Right Ankle (cm) 22.3 22.5 WC - Nurse 2 - General Ulcer CM Notes Start: 08/06/23 14:08 Freq: Status: Active Protocol: Activity Type Activity Date Activity User E-sign Co-sign Detail Recorded Client Recorded Date Recorded By Document 08/06/23 14:31 [employer] Laptop 08/06/23 14:39 Document 08/13/23 13:25 [employer] Laptop 08/13/23 13:27 08/06/23 08/13/23 14:31 13:25 Wound Center Nurse 2 #3 R Hodgson -Correct Patient No -Correct Side, Site, Position No -Correct Procedure No -Procedure Performed No -Post Debridement (cm) - Length 0 -Post Debridement (cm) - Width 0 -Post Debridement (cm) - Depth 0 -Total Square (Post) (cm) 0 -Area of Debridement (cm) - Length 0 -Area of Debridement (cm) - Width 0 -Total Square (Area) (cm) 0 -Wound/Ulcer Outcome Healed- Epithelialized #4 R Med LE/ Trauma -Time 13:25 -Correct Patient Yes Yes -Correct Side, Site, Position Yes Yes -Correct Procedure Yes Yes -Procedure Performed Yes Yes -Type of Procedure Debridement Debridement -Clinical Debridement Subcutaneous Subcutaneous -Tissue Removed Subcutaneous Subcutaneous -Post Debridement (cm) - Length 2.0 1.9 -Post Debridement (cm) - Width 0.7 0.8 -Post Debridement (cm) - Depth 0.2 0.1 -Total Square (Post) (cm) 1.40 1.52 -Area of Debridement (cm) - Length 2.0 1.9 -Area of Debridement (cm) - Width 0.7 0.8 -Total Square (Area) (cm) 1.40 1.52 -Tunneling No No -Undermining/Tunneling No No -Circular Undermining No No -Wound/Ulcer Outcome Not Healed Not Healed -Ulcer Cleansing Rinsed/ Rinsed/ Irrigated with Irrigated with Saline Saline -Foul Odor after Cleansing No No -Bioengineered Tissue Yes Yes -Type of Bioengineered Tissue Epifix 18mm Epifix 18mm Disc Disc -Expiration Date 03/30/28 03/30/28 -Product Lot Number [id number] -Percent Used 100 100 -Lot number of Saline Used [id number] -Bleeding Controlled with Pressure Silver Nitrate -Treatment Response Procedure Procedure Tolerated Well Tolerated Well -Offloading No No -Debridement - Subq, 1st 20sq cm No No -Apply Skin Sub - 1st 25 sq cm - Legs 1 1 -Epifix 18mm Disc 3 3 Pain Scale: 0-10 Numeric Is Patient Pain Free? Yes Yes WC - Nurse 3 - General Ulcer D/C NN Start: 08/06/23 14:08 Freq: Status: Active Protocol: Activity Type Activity Date Activity User E-sign Co-sign Detail Recorded Client Recorded Date Recorded By Document 08/06/23 14:45 DL Desktop 08/06/23 14:48 DL Edit Result 08/06/23 14:45 DL (1) Desktop 08/06/23 14:50 DL Document 08/13/23 13:32 KW Desktop 08/13/23 13:33 KW (1) Left - Tubular Bandage Double Layer => - Size E ($) 2 => Notes: => Pt refused Tubigrip to LLE Today 08/06/23 08/13/23 14:45 13:32 Wound Care Center Nurse 3 #4 R Med LE/ Trauma -Ulcer Cleansing Not Cleansed -Foul Odor after Cleansing No -Primary Dressing Applied Mepilex Border Mepilex Border -Other Dressing epifix -Mepilex Border 1 1 Right -Tubular Bandage Double Layer Double Layer -Size of Tubigrip Used Size E Size D -Size D ($) 2 -Size E ($) 2 Left -Size of Tubigrip Used Size E Treatment Response Procedure Tolerated Well Pain Scale: 0-10 Numeric Is Patient Pain Free? Yes Yes WC - Visit Discharge Discharge Condition Stable Stable Ambulatory Status Ambulatory Ambulatory, Walker Transportation Private Auto Private Auto Medication Reconcilliation completed & No provided to patient/care provider Clinical Summary of Care Provided Yes Notes: Pt refused Tubigrip to LLE Today Facility Type Home Health Orders Sent Yes Assessment/Plan Assessment/Plan (1) Non-pressure chronic ulcer of unspecified part of right lower leg with fat layer exposed: CODE(S): L97.912 - Non-pressure chronic ulcer of unspecified part of rightlower leg with fat layer exposed PLAN: Patient was examined and evaluated. All findings were discussed with the patient. All questions were answered to the patient's satisfaction. Excisional debridement with 5 mm dermal curette down to and including subcutaneous tissue, to the right proximal medial leg ulceration without incident. Predebridement measurement is sanguinous crust. Post debrdiement measurement is 1.5 x 1.6 x 0.1 cm. EpiFix 18 mm disc was applied to the right proximal full-thickness ulceration with 100% use. Sixth application. The graft site was free and clear of any infection. The wound/skin graft substitute was dressed with nonadherent bandagesecured in place with Steri-Strips followed by bolster dressing as well as a double layer Tubigrip. Patient shows evidence of dermatitis appreciated to the right proximal leg secondary to dressing. A different dressing will be placed to the patient's right leg. There is no reason to prescribe any hydrocortisone cream or topical medication as this will heal uneventfully in the next upcoming week. Patient was understanding what was explained to him. Follow-up at the wound care center with Dr. Sampson in 1 week. (2) Multiple excoriations: CODE(S): T07.XXXA - Unspecified multiple injuries, initial encounter PLAN: The patient's right lower extremity excoriations are stable with no sign of infection. (3) Edema: CODE(S): R60.9 - Edema, unspecified QUALIFIERS: Edema type: generalized Qualified Code(s): R60.1 - Generalized edema (4) Dermatitis: CODE(S): L30.9 - Dermatitis, unspecified PLAN: Offending agent, offloading foam was removed from the patient's right lower extremity would not be replaced. 08/20/23 1350 <Electronically signed by Warren Sampson DPM> Cosigner Signature (if applicable): CC: ~ Signed [facility] Work Phone: [phone] Progress note Author Warren Sampson [facility] August 13, 2023 1:27pm Note Date/Time August 13, 2023 1:27pm [facility] [address] [place] [address] Progress Note - Wound Care 08/13/23 1325 MR#: [id number] Acct: [id number] Name: AMAURY BLANK Rep #:[id number] : 1940 83 From: Warren Wallace PM PCP: Dr. Rosa Maria Santacruz MD Status:REG RCR Location: History of Present Illness Date of Service: 08/13/23 Chief Complaint: Left foot ulcerations History of Wound: Chronic wounds left foot self treatment as well as SNF treatment Subjective Subjective Mr. Blank is a 82-year-old male presenting for follow-up of bilateral leg ulcerations. Patient states that home health care has come to his home for dressing changes Friday. He presents today to the wound care center for follow-up evaluation. He denies any recent falls. He denies constitutional symptoms. No other pedal complaints at this time. Objective Data Objective Data Vital Signs: Vital Signs Temp Pulse Resp BP Pulse Ox O2 Del Method O2 Flow Rate 96.9 F L 67 18 149/57 H 100 Room Air 2 08/06/23 14:08 08/13/23 13:13 08/13/23 13:13 08/13/23 13:13 07/31/23 00:13 08/13/23 13:13 07/31/23 00:13 Oxygen Flow Rate (L/min) 2 Oxygen Delivery Method Room Air Physical Exam Narrative Vascular: DP and PT pulses are faintly palpable. CFT is delayed. Evidence of hemosiderin deposits appreciated bilateral lower extremity. Skin temperature great is warm to warm from proximal ankle to distal digit. Nonpitting edema appreciated to the right lower extremity. No focal increase noted. Neurological: Light touch intact. Epic or station is diminished. Patient does not respond to painful stimuli. Dermatological: Full-thickness ulceration appreciated to the left heel, is healed. Evidence of full-thickness ulceration secondary to laceration to anterior aspect of the right leg. Right leg central ulceration is healed, proximal medial leg measures 1.9 x 0.8 x 0.1 cm. All wounds are under percent granular nature. No sign of infection. Excisional debridement with 5 mm dermal curette down to and including subcutaneous tissue, to the right proximal medial leg ulceration without incident. Predebridement measurement is sanguinous crust. Post debrdiement measurement is 1.9 x 0.8 x 0.1 cm. EpiFix 18 mm disc was applied to the right proximal full-thickness ulceration with 100% use. Fifth application. The graft site was free and clear of any infection. The wound/skin graft substitute was dressed with nonadherent bandagesecured in place with Steri-Strips followed by bolster dressing as well as a double layer Tubigrip. Musculoskeletal: No pain on palpation or with sharp debridement to both ulcerations to the left foot. No pain with calf compression. Debridement Note Debridement Note Debridement Free Text: Excisional debridement with 5 mm dermal curette down to and including subcutaneous tissue, to the right proximal medial leg ulceration without incident. Predebridement measurement is sanguinous crust. Post debrdiement measurement is 1.9 x 0.8 x 0.1 cm. EpiFix 18 mm disc was applied to the right proximal full-thickness ulceration with 100% use. Fifth application. The graft site was free and clear of any infection. The wound/skin graft substitute was dressed with nonadherent bandagesecured in place with Steri-Strips followed by bolster dressing as well as a double layer Tubigrip. Post-Debridement Measurements and Additional Note: Post-Debridement Measurements/Treatment STEVE - Nurse 1 - General Ulcer Assessment Start: 08/06/23 14:08 Freq: Status: Active Protocol: GE Activity Type Activity Date Activity User E-sign Co-sign Detail Recorded Client Recorded Date Recorded By Document 08/06/23 14:08 KW Desktop 08/06/23 14:20 KW Document 08/13/23 13:13 KW Desktop 08/13/23 13:17 KW 08/06/23 08/13/23 14:08 13:13 - Today's Visit Information Type of service Follow-up Visit Follow-up Visit (Physician/BOAT REPAIRER (Physician/BOAT REPAIRER ) ) Arrival Mode Ambulatory, Ambulatory, Walker Walker Patient Identification Verified (Name & Yes Yes ) Vital Signs Temperature (97.8 F-99.1 F) 96.9 F L Temperature Source Temporal Pulse Rate (60-100) 67 Pulse Location Monitor Monitor Respiratory Rate (12-18) 18 18 Respiratory rate source Observation Observation Oxygen Delivery Method Room Air Room Air Blood Pressure (90/60-120/80) 149/57 H Blood Pressure Mean (mm Hg) 87 Source Monitor Position Semi-Fowlers Blood Pressure Location Right Arm History Since Last Visit- (Skip if this is Patient's initial visit) Have you changed medications since your No No last visit? Any new allergies or adverse reactions No No Had a fall/change in ADL's that may No No increase risk of falls Signs or symptoms of abuse and/or No No neglect since last visit Have you been in the hospital since your No No last visit? Has dressing in place as prescribed Yes Yes Has compression in place as prescribed Yes No Has offloadiing in place as prescribed N/A N/A Experienced any changes in pain level or No No management Left Footwear Regular Shoe Regular Shoe Right Footwear Regular Shoe Regular Shoe Pain Scale: 0-10 Numeric Is Patient Pain Free? Yes Yes - Nurse 1 - General Ulcer Measurement Start: 08/06/23 14:08 Freq: Status: Active Protocol: Activity Type Activity Date Activity User E-sign Co-sign Detail Recorded Client Recorded Date Recorded By Document 08/06/23 14:08 KW Desktop 08/06/23 14:20 KW Document 08/13/23 13:13 KW Desktop 08/13/23 13:17 KW 08/06/23 08/13/23 14:08 13:13 Wound Center Nurse 1 #3 R Hodgson -Current Size (cm) - Length 0.1 -Current Size (cm) - Width 0.1 -Current Size (cm) - Depth 0.1 -Total Square Cm 0.01 -Temperature (Adelina-wound Skin No Abnormality Appearance) (Pt Warm) -Ulcer Cleansing Soap and Water -Anesthetic Used 5% Lidocaine Gel -Wound Comment(s) wound was scapped #4 R Med LE/ Trauma -Combined with (Name of Wound-Exactly 1.5 as it is documented) -Current Size (cm) - Length 0.1 0.5 -Current Size (cm) - Width 0.1 0.1 -Current Size (cm) - Depth 0.1 -Total Square Cm 0.01 0.05 -Exudate Amt Small -Exudate Type Serosanguineous -Wound Margin Distinct, Outline Attached -Granulation Amt Large (67-100%) -Granulation Quality Red -Texture (Adelina-wound Skin Appearance) Assessed -Moisture (Adelina-wound Skin Appearance) Assessed -Color (Adelina-wound Skin Appearance) Assessed -Temperature (Adelina-wound Skin No Abnormality Appearance) (Pt Warm) -Ulcer Cleansing Soap and Water Rinsed/ Irrigated with Saline -Anesthetic Used 5% Lidocaine 5% Lidocaine Gel Gel -Wound Comment(s) wound was scabbed over. Right Calf (cm) 35.5 35.5 Right Ankle (cm) 22.3 22.5 WC - Nurse 2 - General Ulcer CM Notes Start: 08/06/23 14:08 Freq: Status: Active Protocol: Activity Type Activity Date Activity User E-sign Co-sign Detail Recorded Client Recorded Date Recorded By Document 08/06/23 14:31 Laptop 08/06/23 14:39 08/06/23 14:31 Wound Center Nurse 2 #3 R Hodgson -Correct Patient No -Correct Side, Site, Position No -Correct Procedure No -Procedure Performed No -Post Debridement (cm) - Length 0 -Post Debridement (cm) - Width 0 -Post Debridement (cm) - Depth 0 -Total Square (Post) (cm) 0 -Area of Debridement (cm) - Length 0 -Area of Debridement (cm) - Width 0 -Total Square (Area) (cm) 0 -Wound/Ulcer Outcome Healed- Epithelialized #4 R Med LE/ Trauma -Correct Patient Yes -Correct Side, Site, Position Yes -Correct Procedure Yes -Procedure Performed Yes -Type of Procedure Debridement -Clinical Debridement Subcutaneous -Tissue Removed Subcutaneous -Post Debridement (cm) - Length 2.0 -Post Debridement (cm) - Width 0.7 -Post Debridement (cm) - Depth 0.2 -Total Square (Post) (cm) 1.40 -Area of Debridement (cm) - Length 2.0 -Area of Debridement (cm) - Width 0.7 -Total Square (Area) (cm) 1.40 -Tunneling No -Undermining/Tunneling No -Circular Undermining No -Wound/Ulcer Outcome Not Healed -Ulcer Cleansing Rinsed/ Irrigated with Saline -Foul Odor after Cleansing No -Bioengineered Tissue Yes -Type of Bioengineered Tissue Epifix 18mm Disc -Expiration Date 03/30/28 -Product Lot Number [id number] -Percent Used 100 -Bleeding Controlled with Pressure -Treatment Response Procedure Tolerated Well -Offloading No -Debridement - Subq, 1st 20sq cm No -Apply Skin Sub - 1st 25 sq cm - Legs 1 -Epifix 18mm Disc 3 Pain Scale: 0-10 Numeric Is Patient Pain Free? Yes - Nurse 3 - General Ulcer D/C NN Start: 08/06/23 14:08 Freq: Status: Active Protocol: Activity Type Activity Date Activity User E-sign Co-sign Detail Recorded Client Recorded Date Recorded By Document 08/06/23 14:45 DL Desktop 08/06/23 14:48 DL Edit Result 08/06/23 14:45 DL (1) Desktop 08/06/23 14:50 DL (1) Left - Tubular Bandage Double Layer => - Size E ($) 2 => Notes: => Pt refused Tubigrip to [facility] Today 08/06/23 14:45 Wound Care Center Nurse 3 #4 R Med LE/ Trauma -Ulcer Cleansing Not Cleansed -Foul Odor after Cleansing No -Primary Dressing Applied Mepilex Border -Other Dressing epifix -Mepilex Border 1 Right -Tubular Bandage Double Layer -Size of Tubigrip Used Size E -Size E ($) 2 Left -Size of Tubigrip Used Size E Treatment Response Procedure Tolerated Well Pain Scale: 0-10 Numeric Is Patient Pain Free? Yes WC - Visit Discharge Discharge Condition Stable Ambulatory Status Ambulatory Transportation Private Auto Notes: Pt refused Tubigrip to [facility] Today Facility Type Home Health Orders Sent Yes Assessment/Plan Assessment/Plan (1) Non-pressure chronic ulcer of unspecified part of right lower leg with fat layer exposed: CODE(S): L97.912 - Non-pressure chronic ulcer of unspecified part of rightlower leg with fat layer exposed PLAN: Patient was examined and evaluated. All findings were discussed with the patient. All questions were answered to the patient's satisfaction. Excisional debridement with 5 mm dermal curette down to and including subcutaneous tissue, to the right proximal medial leg ulceration without incident. Predebridement measurement is sanguinous crust. Post debrdiement measurement is 1.9 x 0.8 x 0.1 cm. EpiFix 18 mm disc was applied to the right proximal full-thickness ulceration with 100% use. Fifth application. The graft site was free and clear of any infection. The wound/skin graft substitute was dressed with nonadherent bandagesecured in place with Steri-Strips followed by bolster dressing as well as a double layer Tubigrip. Follow-up at the wound care center with Dr. Sampson in 1 week. (2) Edema: CODE(S): R60.9 - Edema, unspecified QUALIFIERS: Edema type: generalized Qualified Code(s): R60.1 - Generalized edema 08/13/23 1327 <Electronically signed by Warren Sampson DPM> Cosigner Signature (if applicable): CC: ~ Signed [facility] Work Phone: 1(342) 403-546202-07-2024 Progress note Author Warren Sampson [facility] August 06, 2023 3:47pm Note Date/Time August 06, 2023 3 :47pm [facility] [address] [place] [id number] Progress Note - Wound Care 08/06/23 1544 MR#: [id number] Acct: [id number] Name: AMAURY BLANK Rep #:[id number] : 1940 83 From: Warren Wallace PM PCP: Dr. Rosa Maria Santacruz MD Status:REG RCR Location: History of Present Illness Date of Service: 08/06/23 Chief Complaint: Left foot ulcerations History of Wound: Chronic wounds left foot self treatment as well as SNF treatment Subjective Subjective Mr. Blank is a 82-year-old male presenting for follow-up of bilateral leg ulcerations. Patient states that home health care has not come to his home for dressing changes but coming Friday. He presents today to the wound care center for follow-up evaluation. He denies any recent falls. He denies constitutionalsymptoms. No other pedal complaints at this time. Objective Data Objective Data Vital Signs: Vital Signs Temp Pulse Resp BP Pulse Ox O2 Del Method O2 Flow Rate 96.9 F L 73 18 123/53 H 100 Room Air 2 08/06/23 14:08 07/31/23 00:13 08/06/23 14:08 07/31/23 00:13 07/31/23 00:13 08/06/23 14:08 07/31/23 00:13 Oxygen Flow Rate (L/min) 2 Oxygen Delivery Method Room Air Physical Exam Narrative Vascular: DP and PT pulses are faintly palpable. CFT is delayed. Evidence of hemosiderin deposits appreciated bilateral lower extremity. Skin temperature great is warm to warm from proximal ankle to distal digit. Nonpitting edema appreciated to the right lower extremity. No focal increase noted. Neurological: Light touch intact. Epic or station is diminished. Patient does not respond to painful stimuli. Dermatological: Full-thickness ulceration appreciated to the left heel, is healed. Evidence of full-thickness ulceration secondary to laceration to anterior aspect of the right leg. Right leg central ulceration is healed, proximal medial leg measures 2.0 x 0.7 x 0.1 cm. All wounds are under percent granular nature. No sign of infection. Excisional debridement with 5 mm dermal curette down to and including subcutaneous tissue, to the right proximal medial leg ulceration without incident. Predebridement measurement is sanguinous crust Post debrdiement measurement is 2.0 x 0.7 x 0.1 cm. EpiFix 18 mm disc was applied to the right proximal full-thickness ulceration with 100% use. Fourth application. The graft site was free and clear of any infection. The wound/skin graft substitute was dressed with nonadherent bandagesecured in place with Steri-Strips followed by bolster dressing as well as a double layer Tubigrip. Musculoskeletal: No pain on palpation or with sharp debridement to both ulcerations to the left foot. No pain with calf compression. Debridement Note Debridement Note Debridement Free Text: Excisional debridement with 5 mm dermal curette down to and including subcutaneous tissue, to the right proximal medial leg ulceration without incident. Predebridement measurement is sanguinous crust Post debrdiement measurement is 2.0 x 0.7 x 0.1 cm. EpiFix 18 mm disc was applied to the right proximal full-thickness ulceration with 100% use. Fourth application. The graft site was free and clear of any infection. The wound/skin graft substitute was dressed with nonadherent bandagesecured in place with Steri-Strips followed by bolster dressing as well as a double layer Tubigrip. Post-Debridement Measurements and Additional Note: Post-Debridement Measurements/Treatment STEVE - Nurse 1 - General Ulcer Assessment Start: 08/06/23 14:08 Freq: Status: Active Protocol: GE Activity Type Activity Date Activity User E-sign Co-sign Detail Recorded Client Recorded Date Recorded By Document 08/06/23 14:08 KW Desktop 08/06/23 14:20 KW 08/06/23 14:08 WC - Today's Visit Information Type of service Follow-up Visit (Physician/BOAT REPAIRER ) Arrival Mode Ambulatory, Walker Patient Identification Verified (Name & Yes ) Vital Signs Temperature (97.8 F-99.1 F) 96.9 F L Temperature Source Temporal Pulse Location Monitor Respiratory Rate (12-18) 18 Respiratory rate source Observation Oxygen Delivery Method Room Air History Since Last Visit- (Skip if this is Patient's initial visit) Have you changed medications since your No last visit? Any new allergies or adverse reactions No Had a fall/change in ADL's that may No increase risk of falls Signs or symptoms of abuse and/or No neglect since last visit Have you been in the hospital since your No last visit? Has dressing in place as prescribed Yes Has compression in place as prescribed Yes Has offloadiing in place as prescribed N/A Experienced any changes in pain level or No management Left Footwear Regular Shoe Right Footwear Regular Shoe Pain Scale: 0-10 Numeric Is Patient Pain Free? Yes - Nurse 1 - General Ulcer Measurement Start: 08/06/23 14:08 Freq: Status: Active Protocol: Activity Type Activity Date Activity User E-sign Co-sign Detail Recorded Client Recorded Date Recorded By Document 08/06/23 14:08 KW Desktop 08/06/23 14:20 KW 08/06/23 14:08 Wound Center Nurse 1 #3 R Hodgson -Current Size (cm) - Length 0.1 -Current Size (cm) - Width 0.1 -Current Size (cm) - Depth 0.1 -Total Square Cm 0.01 -Temperature (Adelina-wound Skin No Abnormality Appearance) (Pt Warm) -Ulcer Cleansing Soap and Water -Anesthetic Used 5% Lidocaine Gel -Wound Comment(s) wound was scapped #4 R Med LE/ Trauma -Current Size (cm) - Length 0.1 -Current Size (cm) - Width 0.1 -Current Size (cm) - Depth 0.1 -Total Square Cm 0.01 -Ulcer Cleansing Soap and Water -Anesthetic Used 5% Lidocaine Gel -Wound Comment(s) wound was scabbed over. Right Calf (cm) 35.5 Right Ankle (cm) 22.3 WC - Nurse 2 - General Ulcer CM Notes Start: 08/06/23 14:08 Freq: Status: Active Protocol: Activity Type Activity Date Activity User E-sign Co-sign Detail Recorded Client Recorded Date Recorded By Document 08/06/23 14:31 Laptop 08/06/23 14:39 08/06/23 14:31 Wound Center Nurse 2 #3 R Hodgson -Correct Patient No -Correct Side, Site, Position No -Correct Procedure No -Procedure Performed No -Post Debridement (cm) - Length 0 -Post Debridement (cm) - Width 0 -Post Debridement (cm) - Depth 0 -Total Square (Post) (cm) 0 -Area of Debridement (cm) - Length 0 -Area of Debridement (cm) - Width 0 -Total Square (Area) (cm) 0 -Wound/Ulcer Outcome Healed- Epithelialized #4 R Med LE/ Trauma -Correct Patient Yes -Correct Side, Site, Position Yes -Correct Procedure Yes -Procedure Performed Yes -Type of Procedure Debridement -Clinical Debridement Subcutaneous -Tissue Removed Subcutaneous -Post Debridement (cm) - Length 2.0 -Post Debridement (cm) - Width 0.7 -Post Debridement (cm) - Depth 0.2 -Total Square (Post) (cm) 1.40 -Area of Debridement (cm) - Length 2.0 -Area of Debridement (cm) - Width 0.7 -Total Square (Area) (cm) 1.40 -Tunneling No -Undermining/Tunneling No -Circular Undermining No -Wound/Ulcer Outcome Not Healed -Ulcer Cleansing Rinsed/ Irrigated with Saline -Foul Odor after Cleansing No -Bioengineered Tissue Yes -Type of Bioengineered Tissue Epifix 18mm Disc -Expiration Date 03/30/28 -Product Lot Number [id number] -Percent Used 100 -Bleeding Controlled with Pressure -Treatment Response Procedure Tolerated Well -Offloading No -Debridement - Subq, 1st 20sq cm No -Apply Skin Sub - 1st 25 sq cm - Legs 1 -Epifix 18mm Disc 3 Pain Scale: 0-10 Numeric Is Patient Pain Free? Yes - Nurse 3 - General Ulcer D/C NN Start: 08/06/23 14:08 Freq: Status: Active Protocol: Activity Type Activity Date Activity User E-sign Co-sign Detail Recorded Client Recorded Date Recorded By Document 08/06/23 14:45 DL Desktop 08/06/23 14:48 DL Edit Result 08/06/23 14:45 DL (1) Desktop 08/06/23 14:50 DL (1) Left - Tubular Bandage Double Layer => - Size E ($) 2 => Notes: => Pt refused Tubigrip to [facility] Today 08/06/23 14:45 Wound Care Center Nurse 3 #4 R Med LE/ Trauma -Ulcer Cleansing Not Cleansed -Foul Odor after Cleansing No -Primary Dressing Applied Mepilex Border -Other Dressing epifix -Mepilex Border 1 Right -Tubular Bandage Double Layer -Size of Tubigrip Used Size E -Size E ($) 2 Left -Size of Tubigrip Used Size E Treatment Response Procedure Tolerated Well Pain Scale: 0-10 Numeric Is Patient Pain Free? Yes WC - Visit Discharge Discharge Condition Stable Ambulatory Status Ambulatory Transportation Private Auto Notes: Pt refused Tubigrip to [facility] Today Facility Type Home Health Orders Sent Yes Assessment/Plan Assessment/Plan (1) Non-pressure chronic ulcer of unspecified part of right lower leg with fat layer exposed: CODE(S): L97.912 - Non-pressure chronic ulcer of unspecified part of rightlower leg with fat layer exposed PLAN: Patient was examined and evaluated. All findings were discussed with the patient. All questions were answered to the patient's satisfaction. Excisional debridement with 5 mm dermal curette down to and including subcutaneous tissue, to the right proximal medial leg ulceration without incident. Predebridement measurement is sanguinous crust Post debrdiement measurement is 2.0 x 0.7 x 0.1 cm. EpiFix 18 mm disc was applied to the right proximal full-thickness ulceration with 100% use. Fourth application. The graft site was free and clear of any infection. The wound/skin graft substitute was dressed with nonadherent bandagesecured in place with Steri-Strips followed by bolster dressing as well as a double layer Tubigrip. Follow-up at the wound care center with Dr. Sampson in 1 week. (2) Edema: CODE(S): R60.9 - Edema, unspecified QUALIFIERS: Edema type: generalized Qualified Code(s): R60.1 - Generalized edema 08/06/23 1547 <Electronically signed by Warren Sampson DPNahomi> Cosigner Signature (if applicable): CC: ~ Signed [facility] Work Phone: 1(706) 603-725212-27-2023 Discharge summary [address] Priya [facility] June 25, 2023 2:39pm Note Date/Time June 25, 2023 2:22pm [facility] Medical Records Department [address] [place] [id number] Discharge Summary 06/25/23 1421 MR#: [id number] Acct: [id number] Name: AMAURY BLANK Rep #:[id number] : 1940 82 From: Priya Sheehan MD PCP: Dr. Rosa Maria Santacruz MD Status:ADM IN Location: [place] [address] Providers Date of Admission: 06/20/23 Date of Discharge: 06/25/23 Primary Care Physician: Dr. Rosa Maria Santacruz MD Consultations 06/20/23 09:09 Consult: Cardiology Routine Consulting Provider: Lakshmi Carpenter Reason for Consult: palpitation, severe bradycardia, hypotension recovered EMERGENT Consult: No MD Notified: Yes Date Notified: 06/20/23 Time Notified: 09:11 Method of Notification: Verbal Consult: Nephrology Routine Consulting Provider: Kvng James Reason for Consult: CKD 4 WITH Hyperkalemia EMERGENT Consult: No Notified: Yes Date Notified: 06/20/23 Time Notified: 09:10 Method of Notification: Verbal 06/20/23 10:38 Consult: Onc/Wound/industrial machine operator Routine Comment: Reason for Consult:: b/l Leg ulcer chronic 06/21/23 12:33 Consult: Engineering Specialist Technician / Pulmonary Medicine Routine Consulting Provider: [facility] Reason for Consult: acute hypoxic respiratory failure due to aspiration pneumonia EMERGENT Consult: No MD Notified: Yes Date Notified: 06/21/23 Time Notified: 12:33 Method of Notification: Text 06/23/23 10:32 Consult: Gastroenterology Routine Consulting Provider: [facility] Reason for Consult: acute on chronic anemia, dark stools EMERGENT Consult: No MD Notified: Yes Date Notified: 06/23/23 Time Notified: 10:32 Method of Notification: Text 06/24/23 07:37 Consult: Gastroenterology Routine Consulting Provider: [facility] Reason for Consult: iron deficiency anemia EMERGENT Consult: No Notified: Yes Date Notified: 06/24/23 Time Notified: 07:37 Method of Notification: Text Reason For Visit: PALPITATION, LEG WEAKNESS? Diagnosis Discharge Diagnosis (1) Acute respiratory failure with hypoxia: Status: Acute Code(s): J96.01 - Acute respiratory failure with hypoxia (2) Pancytopenia: Status: Chronic Code(s): D61.818 - Other pancytopenia Plan #Acute hypoxic respiratory failure due to probable aspiration pneumonia * now down to 2L of oxygen. * speech therapy evaluated him and he was cleared for oral intake. * CXR done showed no evidence of pneumonia and showed small bilateral pleural effusion siwth bibasilar atelectasis * remains on IV zosyn due to concern for aspiration. * titrate oxygen to maintain sats >90% * pulmonology on board * #Sinus bradycardia * had first degree AV block also. troponins were negative * carvedilol adn amiodarone on hold * cardiology on board * has known EF of 60%, with RVSP of severe pulmonary hypertension. * carvedilol and amiodarone on hold. * #CAD s/p CABG and stents; on aspirin and high intensity statin. Beta anna on hold. #CKD IV with hyperkalemia: hyperkalemia resolved with treatmwnt. Cr is 2.32 today. #Pancytopenia: * Hb today was 7.9 yesterday * he did complain of dark stools * he has a history of PUDx and had EGD in November 2022 which showed bleeding peptic ulcer, which was cauterised. * Iron profile showed low iron levels of 34 with low TIBC. Iron saturation at 16.7 was on the lower side of normal and ferritin was elevated mildly at 399. This is more indicative of an anemia of chronic disease picture. * gastroenterology consulted. for EGD today. #Ulcerative colitis: on colazal #Hypothyroidism: on synthroid #Hyperlipidemia: on statin #Debility due to frequent falls: PT/OT on board. Fall precautions #History of COPD and emphysema: on had pneumothorax in August 2020 and was sen [facility] for CT evaluation. Had VATS. DVT prophylaxis; SCDs Medications at Discharge Home Medications ferrous sulfate 325 mg (65 mg iron) tablet 325 mg PO DAILY vitamin 05/28/15 vitamin B complex 1 each PO DAILY vitamin 02/07/16 levothyroxine 50 mcg tablet 75 mcg PO DAILY thyroid 06/13/20 acetaminophen 500 mg tablet 1,000 mg (2 x 500 mg) PO Q6H PRN PRN Pain Score 1-5 #0 tabs 12/19/22 aspirin 81 mg tablet,delayed release 81 mg PO DAILY 04/14/23 atorvastatin 40 mg tablet (Lipitor) 40 mg PO DAILY cholesterol #90 tabs 04/14/23 balsalazide 750 mg capsule (Colazal) 2,250 mg PO BID 04/14/23 hydralazine 50 mg tablet 50 mg PO BID 04/14/23 amlodipine 10 mg tablet 10 mg PO DAILY #90 tabs 05/20/23 lisinopril 20 mg tablet 20 mg PO DAILY #90 tabs 05/21/23 bumetanide 1 mg tablet 1 mg PO DAILY #30 tabs 06/25/23 pantoprazole 40 mg tablet,delayed release 40 mg PO BID #60 tabs 06/25/23 Hospital Course Operations None Procedures None Summary of Care Provided Minutes Spent on Discharge: 55 Hospital Course: Patient is an 82-year-old male with a past medical history as outlined was admitted through the ED on 06/20/2023 with a complaint of palpitations and shortness of breath. His symptoms have been going on for about 3 days prior to admission. The day of admission he fell and said he started having palpitationsso he came into the ED. In the ED he was tachypneic though he became hypotensive was also saturating at 86% on room air. Chemistry showed elevated potassium of 5.7 and creatinine of 2.5. Initial troponin was negative. Chest x-ray showed nonspecific left retrocardiac infiltrate. EKG showed first-degree AV block. He was given potassium depleting cocktail for hyperkalemia. He had also had several falls at home including the day before admission. Of note he was also hypoglycemic with a blood sugar of 40 on admission and he was given [id number]. He was admitted and managed for sinus bradycardia. His carvedilol andamiodarone were held. Cardiology was consulted. Hospital course was complicated by patient choking on his food and subsequently requiring up to 10 Lof oxygen. He was therefore diagnosed with acute hypoxic respiratory failure due to probable aspiration pneumonia. He was started on IV Zosyn and pulmonology consulted. Speech therapy evaluated him and there was no evidence of dysphagia. Patient was also diuresed as needed. His shortness of breath gradually improved and he was weaned down to 2 L of oxygen. He completed a course of antibiotics. Sputum cultures and blood cultures were negative. Hospital course was complicated by anemia. Gastroenterology was consulted and patient had EGD which showed a normal esophagus and an oozing gastric ulcer witha visible vessel which was injected and treated with heater probe. There was also a nonbleeding gastric ulcer with pigmented material which was treated with argon plasma coagulation and nonbleeding gastric ulcers with no stigmata of bleeding. Patient was placed on clear liquid diet and counseled that he could not be on aspirin for at least 7 days. Aspirin was therefore discontinued at discharge and patient counseled that he would need follow-up with his PCP and personal lines sales rep to determine if aspirin should be resumed. His carvedilol and amiodarone were also discontinued per cardiology recommendations at time of discharge and patient had a 30-day event monitor ordered again per cardiology recommendations to evaluate his sinus bradycardia. Patient remained stable and was discharged on 06/25/2023. He was discharged home with home health. He is follow-up with his primary care doctor and cardiology as well as gastroenterology within 1 to 2 weeks. Patient had walking pulse ox which showedthat he required 2 L of oxygen at rest and with ambulation. Patient is ambulatory in the community. Patient seen and examined prior to discharge. He felt well and had no active complaints. He had an uneventful night. Review of systems otherwise negative. Labs and vitals reviewed. Home medication reviewed and reconciled. Physical Exam Const alert, oriented x3 and no apparent distress General Appearance: cooperative and comfortable Orientation / Consciousness: awake HEENT normocephalic, head/scalp atraumatic and hearing grossly normal bilaterally Mouth: oral and palatal mucosa normal Eyes PERRL and EOMs intact bilaterally Neck no lymphadenopathy, supple and no JVD Lymph Lymphatic: no lymphadenopathy noted and no lymphedema noted Resp Resp Narrative: on 2L of oxygen by nasal canula. Cardio regular rate, regular rhythm, S1 normal heart sound, S2 normal heart sound and no murmurs GI normal to inspection, nondistended, normoactive bowel sounds, soft to palpation and non-tender Extremity normal to inspection, full ROM, normal capillary refill and no clubbing, cyanosis or edema General Extremity: no tenderness to palpation of joints or extremities Skin no rashes or lesions noted General Skin Exam: no breakdown Neuro oriented x3, CN's II-XII intact bilaterally, moves all extremities, no focal motor deficits, no sensory deficits noted and deep tendon reflexes 2+ bilaterally Sensorium / Orientation: awake and alert Motor Exam: strength 5/5 throughout and general weakness Psych thought process normal and cooperative Appearance: appropriate Weight / BMI Weight Weight: 187 lb 9.814 oz Body Mass Index (BMI) 26.9 ABG / Lab / Microbiology Data 06/25/23 05:24 06/25/23 05:24 Laboratory: Laboratory Results - last 24 hr 06/24/23 10:25: Diff Path Review Reviewed 06/25/23 05:24: WBC 3.3 L, RBC 2.13 L, Hgb 7.4 L, Hct 23.9 L, MCV 112.2 H, MCH 34.7 H, MCHC 31.0 L, RDW Std Deviation 71.7 H, RDW Coeff of Chanel 17.2 H, Plt Count 83 L, MPV 10.5, Immature Gran % (Auto) 0.300, Neut % (Auto) 69.7, Lymph % (Auto) 14.1 L, Kendall % (Auto) 9.2, Eos % (Auto) 5.8 H, Baso % (Auto) 0.9, Absolute Neuts (auto) 2.3, Absolute Lymphs (auto) 0.46 L, Nucleated RBC % 0, Differential Comment SCANNED, Diff Path Review May foll, Platelet Estimate SLT DEC, Anisocytosis RARE, Sodium 143, Potassium 5.1, Chloride 111 H, Carbon Dioxide 27.0, Anion Gap 5, BUN 45 H, Creatinine 2.41 H, Estim Creat Clear Calc 24.82, Est GFR (MDRD) Af Amer 33 L, Est GFR (MDRD) Non-Af 28 L, BUN/Creatinine Ratio 18.7, Glucose 63 L, Calcium 8.2 L 06/25/23 06:53: POC Glucose 82 Microbiology: Microbiology 06/24/23 Unknown Stool Stool Occult Blood (OSCAR) - Final Occult Blood Positive D/C Instructions Discharge Diet: Low fat / Low cholesterol Discharge Activity: Return to Normal Activity Weight Bearing Status: Weight bearing as tolerated Call your doctor if you observe: Fever of 101 or Higher, Shortness of breath, Dizziness, Swelling in the ankles, Chest pain and Increased palpitations (irregular heartbeat) Meaningful Use Info Meaningful Use Diagnoses (Choose all that apply): None applicable Discharge Plan Admission Admit Date/Time: 06/20/23 07:33 Primary Reason for Your Visit: aspiration pneumonia, GI bleed, sinus bradycardia Attending Provider: Priya Sheehan Primary Care Provider: Rosa Maria Santacruz Consulting Providers: Lakshmi Carpenter; Kvng James; Oniel Moulton; William Dawson; Robby Lai; Daniel Jimenez; Rufus Bruner; Tierney Menendez ENTERPRISE MANAGER Instructions Patient Instructions: Anemia, Dysphagia Aspiration Tx Additional Instructions / Restrictions: aspirin discontinued due to bleeding peptic ulcer. TO follow up with PCP for decision to be made about if and when to resume aspirin. Amiodarone and carvedilol discontinued due to bradycardia. 30 day event monitor ordered per cardiology o/a of bradycardia Discharge Orders/Prescriptions Prescriptions: New pantoprazole 40 mg tablet,delayed release (DR/EC) 40 mg PO BID Qty: 60 2RF bumetanide 1 mg tablet 1 mg PO DAILY Qty: 30 1RF Continued balsalazide [Colazal] 750 mg capsule 2,250 mg PO BID hydralazine 50 mg tablet 50 mg PO BID ferrous sulfate 325 MG tablet 325 mg PO DAILY Patient Comments: Iron supplement vitamin B complex 1 EACH capsule 1 each PO DAILY Patient Comments: Vitamin supplement acetaminophen 500 mg Tablet 1,000 mg PO Q6H PRN PRN (Reason: Pain Score 1-5) Qty: 0 0RF levothyroxine 50 mcg tablet 75 mcg PO DAILY atorvastatin [Lipitor] 40 mg tablet 40 mg PO DAILY Qty: 90 3RF amlodipine 10 mg tablet 10 mg PO DAILY Qty: 90 3RF lisinopril 20 mg tablet 20 mg PO DAILY Qty: 90 3RF Discontinued doxycycline hyclate 100 mg capsule 100 mg PO BID 14 Days Qty: 28 0RF ciprofloxacin HCl 750 mg tablet 750 mg PO BID 14 Days Qty: 28 0RF amiodarone 200 mg tablet See Rx Instructions .ROUTE .COMPLEX Qty: 90 3RF Dose Instruction: TAKE 1 TABLET BY MOUTH DAILY FOR AFIB/FLUTTER Rx Instructions: TAKE 1 TABLET BY MOUTH DAILY FOR AFIB/FLUTTER carvedilol 3.125 mg tablet 3.125 mg PO BID Qty: 180 0RF No Action aspirin 81 mg tablet,delayed release (DR/EC) 81 mg PO DAILY Other Ambulatory Orders: 30 Day Event Recorder Preventi (Urgent) Timeframe: 1 Day Facility: [facility] - Location: Cardiovascular Services Ordered By: Dr. Pirya Sheehan Referrals / Follow Up: Rosa Maria Santacruz MD [Primary Care Provider] - 06/27/23 11:20 am Irving Horowitz DO [Med Staff - Active Staff] - Within 2 Weeks Karey Jordan NP, ENTERPRISE MANAGER-C [Non-Staff -Ordering Privileges] - 07/18/23 10:30 am Disposition Disposition (needs filled in before D/C Order can be placed): Home, Self Care Charges/Coding Visit Charges Inpatient E&M: 74950 Disch Hosp >30min 06/25/23 1439 <Electronically signed by Priya Sheehan MD> Cosigner Signature (if applicable): CC: Dr. Rosa Maria Santacruz MD; Dr. Priya Sheehan MD~ Signed [facility] Work Phone: 1(572) 604-335712-27-2023 Discharge summary Author Priya Sheehan [facility] June 25, 2023 2:21pm Note Date/Time June 25, 2023 2:20pm [facility] Medical Records Department [address] [place] [address] Instructions for Home/Discharge Instructions 06/25/23 1419 MR#: [id number] Acct: [id number] Name: AMAURY BLANK Rep #:[id number] : 1940 82 From: Priya Sheehan MD PCP: Dr. Rosa Maria Santacruz MD Status:ADM IN Discharge Instructions Diet Discharge Diet: Low fat / Low cholesterol Activity Discharge Activity: Return to Normal Activity Weight Bearing Status: Weight bearing as tolerated Dressing / Incision Call your doctor if you observe: Fever of 101 or Higher, Shortness of breath, Dizziness, Swelling in the ankles, Chest pain and Increased palpitations (irregular heartbeat) Follow Up Care Test Results: Test results from this visit will be discussed in further detail at your follow- up appointment, if applicable. Discharge Plan Admission Admit Date/Time: 06/20/23 07:33 Primary Reason for Your Visit: aspiration pneumonia, GI bleed, sinus bradycardia Attending Provider: Priya Sheehan Primary Care Provider: Rosa Maria Santacruz Consulting Providers: Lakshmi Carpenter; Kvng James; Oniel Moulton; William Dawson; Robby Lai; Daniel Jimenez; Rufus Bruner; Tierney Menendez ENTERPRISE MANAGER Instructions Patient Instructions: Anemia, Dysphagia Aspiration Tx Additional Instructions / Restrictions: aspirin discontinued due to bleeding peptic ulcer. TO follow up with PCP for decision to be made about if and when to resume aspirin. Amiodarone and carvedilol discontinued due to bradycardia. 30 day event monitor ordered per cardiology o/a of bradycardia Discharge Orders/Prescriptions Prescriptions: New pantoprazole 40 mg tablet,delayed release (DR/EC) 40 mg PO BID Qty: 60 2RF Continued balsalazide [Colazal] 750 mg capsule 2,250 mg PO BID hydralazine 50 mg tablet 50 mg PO BID ferrous sulfate 325 MG tablet 325 mg PO DAILY Patient Comments: Iron supplement vitamin B complex 1 EACH capsule 1 each PO DAILY Patient Comments: Vitamin supplement acetaminophen 500 mg Tablet 1,000 mg PO Q6H PRN PRN (Reason: Pain Score 1-5) Qty: 0 0RF levothyroxine 50 mcg tablet 75 mcg PO DAILY atorvastatin [Lipitor] 40 mg tablet 40 mg PO DAILY Qty: 90 3RF amlodipine 10 mg tablet 10 mg PO DAILY Qty: 90 3RF lisinopril 20 mg tablet 20 mg PO DAILY Qty: 90 3RF Discontinued doxycycline hyclate 100 mg capsule 100 mg PO BID 14 Days Qty: 28 0RF ciprofloxacin HCl 750 mg tablet 750 mg PO BID 14 Days Qty: 28 0RF amiodarone 200 mg tablet See Rx Instructions .ROUTE .COMPLEX Qty: 90 3RF Dose Instruction: TAKE 1 TABLET BY MOUTH DAILY FOR AFIB/FLUTTER Rx Instructions: TAKE 1 TABLET BY MOUTH DAILY FOR AFIB/FLUTTER carvedilol 3.125 mg tablet 3.125 mg PO BID Qty: 180 0RF No Action aspirin 81 mg tablet,delayed release (DR/EC) 81 mg PO DAILY Other Ambulatory Orders: 30 Day Event Recorder Preventi (Urgent) Timeframe: 1 Day Facility: [facility] - Location: Cardiovascular Services Ordered By: Dr. Priya Sheehan Referrals / Follow Up: Rosa Maria Santacruz MD [Primary Care Provider] - 3-5 Days Ye Nino MD [Med Staff - Active Staff] - Within 2 Weeks Irving Horowitz DO [Med Staff - Active Staff] - Within 2 Weeks Disposition Disposition (needs filled in before D/C Order can be placed): Home, Self Care 06/25/23 1421<Electronically signed by Priya Sheehan MD>Priya Sheehan MD CC: TESSA Menendez; Dr. Rosa Maria Santacruz MD; Dr. William Dawson MD; Dr. Robby Lai DO; Dr. Lakshmi Carpenter MD; Dr. Kvng James MD; Dr. Daniel Jimenez MD; Dr. Oniel Moulton MD; Dr. Rufus Bruner MD ~ Signed [facility] Work Phone: 1(163) 477-812412-27-2023 Progress note Author Robby Lai [facility] June 25, 2023 1:58pm Note Date/Time June 25, 2023 12:56pm [facility] Medical Records Department [address] [place] [address] Progress Note - Engineering Specialist Technician 06/25/23 8492 MR#: [id number] Acct: [id number] Name: ROSAMARIAAMAURY MAR Rep #:[id number] : 1940 82 From: Robby Lai DO PCP: Dr. Rosa Maria Santacruz MD Status:ADM [facility] Assessment & Plan Assessment/Plan (1) Acute respiratory failure with hypoxia: (2) Pancytopenia: PLAN: Plan RECOMMENDATIONS: 1. Continue to wean supplemental oxygen to maintain saturations at or above 90%. 2. Okay to discontinue antimicrobials. 3. Transition from IV to p.o. diuretic therapy. 4. Encourage incentive spirometer use and mobilize patient as tolerated. 5. Perform walking oximetry study prior to consideration for discharge home. IMPRESSIONS: 1. Acute hypoxic respiratory failure Most likely secondary to acute decompensated heart failure with preserved ejection fraction/pulmonary hypertension. The patient has been responding avidly to diuretic therapy, with subsequent improvement in his oxygenation status. Cardiology is following to assist with medical management. The patient does have a previous PFT suggesting possible mixed ventilatory defect with a component of COPD. A CT scan completed in 2020 did not have fibrotic changes noted suggesting fluid as a possibility for restriction on PFT. As needed bronchodilators likely sufficient at this time. Anticipate that the patient mayrequire supplemental oxygen at discharge. Perform walking oximetry study prior to consideration for DC home. 2. Acute diastolic CHF with pulmonary hypertension Continue ongoing diuresis as tolerated by hemodynamics and renal function. 3. Hypothyroidism/hyperlipidemia/frequent falls/advanced age/poor historian/pancytopenia/chronic kidney disease Complicates care, management, recovery and prognosis. CODE STATUS has been verified is DNR/DNI. This note was generated with Paper[employer] dictation software. It may contain incorrectwords, spelling, and punctuation that were not noted in checking the note beforesigning. Subjective Subjective The patient was seen and examined at the bedside this morning. Events from the last 24 hours have been reviewed. The patient is currently afebrile, hemodynamically stable and maintaining appropriate oxygen saturations on 2 L/minvia nasal cannula. The patient is documented to be overall net -5.7 L for the hospitalization. The patient remains on antimicrobials and scheduled IV diuretics. Objective Data Objective Data The patient's most recent lab work, culture data and imaging studies have all been personally reviewed. Vital Signs: Vital Signs Temp Pulse Resp BP Pulse Ox O2 Del Method O2 Flow Rate 98.2 F 60 16 162/50 H 97 Nasal Cannula 2 06/25/23 09:36 06/25/23 09:36 06/25/23 09:36 06/25/23 09:36 06/25/23 11:52 06/25/23 09:36 06/25/23 11:52 Oxygen Flow Rate (L/min) 2 Oxygen Delivery Method Nasal Cannula Weight: 187 lb 9.814 oz Body Mass Index (BMI) 26.9 Intake & Output: Intake and Output for Last 24 Hours 06/23/23 06/24/23 06/25/23 23:59 23:59 23:59 Intake Total 870 / 870 446.75 / 446.75 720 / 720 Output Total 3900 / 5500 4700 / 4700 1650 / 1650 Balance -3030 / -4630 -4253.25 / -4253.25 -930 / -930 Lab / Micro Data Attestation: I reviewed the patient's lab results. 06/25/23 05:24 06/25/23 05:24 Labs: Laboratory Results - last 24 hr 06/21/23 05:57: Diff Path Review Reviewed 06/22/23 08:37: Diff Path Review Reviewed 06/24/23 10:25: Vitamin B12 370, Folate 21.00 06/25/23 05:24: WBC 3.3 L, RBC 2.13 L, Hgb 7.4 L, Hct 23.9 L, MCV 112.2 H, MCH 34.7 H, MCHC 31.0 L, RDW Std Deviation 71.7 H, RDW Coeff of Chanel 17.2 H, Plt Count 83 L, MPV 10.5, Immature Gran % (Auto) 0.300, Neut % (Auto) 69.7, Lymph % (Auto) 14.1 L, Kendall % (Auto) 9.2, Eos % (Auto) 5.8 H, Baso % (Auto) 0.9, Absolute Neuts (auto) 2.3, Absolute Lymphs (auto) 0.46 L, Nucleated RBC % 0, Differential Comment SCANNED, Diff Path Review May foll, Platelet Estimate SLT DEC, Anisocytosis RARE, Sodium 143, Potassium 5.1, Chloride 111 H, Carbon Dioxide 27.0, Anion Gap 5, BUN 45 H, Creatinine 2.41 H, Estim Creat Clear Calc 24.82, Est GFR (MDRD) Af Amer 33 L, Est GFR (MDRD) Non-Af 28 L, BUN/Creatinine Ratio 18.7, Glucose 63 L, Calcium 8.2 L 06/25/23 06:53: POC Glucose 82 Micro: Microbiology 06/24/23 Unknown Stool Stool Occult Blood (OSCAR) - Final Occult Blood Positive Physical Exam Const alert and no apparent distress Constitutional Narrative: Sitting in bedside recliner. General Appearance: cooperative HEENT normocephalic and head/scalp atraumatic Eyes PERRL, EOMs intact bilaterally and conjunctivae normal Neck supple General: trachea midline Chest inspection of chest normal Resp normal respiratory effort Auscultation: rales and diminished lung sounds; Negative for rhonchi or wheezes Cardio regular rate and regular rhythm GI normal to inspection, nondistended, normoactive bowel sounds Extremity Extremity Narrative: Wrapped lower extremities General Extremity: Negative for clubbing Skin no rashes or lesions noted Neuro CN's II-XII intact bilaterally and no focal motor deficits Psych cooperative and affect normal Charges/Coding Visit Charges Inpatient E&M: 38919 Subs Hosp L2 06/25/23 1358 <Electronically signed by Robby Lia DO> Cosigner Signature (if applicable): CC: ~ Signed [facility] Work Phone: 1(560) 362-825512-27-2023 Progress note Author Irving Friend [facility] June 25, 2023 5:08pm Note Date/Time June 25, 2023 5:07pm [facility] Medical Records Department [address] [place] [address] Progress Note - GI 06/25/23 1100 MR#: [id number] Acct: [id number] Name: AMAURY BLANK Rep #:[id number] : 1940 82 From: Irving Horowitz DO PCP: Dr. Rosa Maria Santacruz MD Status:ADM IN Location: [place] [address] Subjective Subjective Patient underwent an upper endoscopy for acute blood loss anemia. He denied having any problems with the procedure yesterday. He tolerated anesthesia without any problems. He denied any abdominal pain, cramping or any other signsof GI bleeding. He is tolerating a normal diet. Objective Data Objective Data Vital Signs: Vital Signs Temp Pulse Resp BP Pulse Ox O2 Del Method O2 Flow Rate 97.6 F L 62 16 155/61 H 97 Nasal Cannula 2 06/25/23 15:35 06/25/23 15:35 06/25/23 15:35 06/25/23 15:35 06/25/23 15:35 06/25/23 15:35 06/25/23 15:35 Oxygen Flow Rate (L/min) [ 2 AMBULATING with Oxygen #1] Oxygen Flow Rate (L/min) [At 2 REST with Oxygen] Oxygen Flow Rate (L/min) 2 Oxygen Delivery Method Nasal Cannula Weight: 187 lb 9.814 oz Body Mass Index (BMI) 26.9 Intake & Output: Intake and Output for Last 24 Hours 06/23/23 06/24/23 06/25/23 23:59 23:59 23:59 Intake Total 870 / 870 446.75 / 446.75 720 / 720 Output Total 3900 / 5500 4700 / 4700 1650 / 1650 Balance -3030 / -4630 -4253.25 / -4253.25 -930 / -930 Lab / Micro Data 06/25/23 05:24 06/25/23 05:24 Labs: Laboratory Results - last 24 hr 06/24/23 10:25: Diff Path Review Reviewed 06/25/23 05:24: WBC 3.3 L, RBC 2.13 L, Hgb 7.4 L, Hct 23.9 L, MCV 112.2 H, MCH 34.7 H, MCHC 31.0 L, RDW Std Deviation 71.7 H, RDW Coeff of Chanel 17.2 H, Plt Count 83 L, MPV 10.5, Immature Gran % (Auto) 0.300, Neut % (Auto) 69.7, Lymph % (Auto) 14.1 L, Kendall % (Auto) 9.2, Eos % (Auto) 5.8 H, Baso % (Auto) 0.9, Absolute Neuts (auto) 2.3, Absolute Lymphs (auto) 0.46 L, Nucleated RBC % 0, Differential Comment SCANNED, Diff Path Review May foll, Platelet Estimate SLT DEC, Anisocytosis RARE, Sodium 143, Potassium 5.1, Chloride 111 H, Carbon Dioxide 27.0, Anion Gap 5, BUN 45 H, Creatinine 2.41 H, Estim Creat Clear Calc 24.82, Est GFR (MDRD) Af Amer 33 L, Est GFR (MDRD) Non-Af 28 L, BUN/Creatinine Ratio 18.7, Glucose 63 L, Calcium 8.2 L 06/25/23 06:53: POC Glucose 82 Micro: Microbiology 06/24/23 Unknown Stool Stool Occult Blood (OSCAR) - Final Occult Blood Positive Physical Exam Const alert, oriented x3 and no apparent distress General Appearance: cooperative and comfortable Orientation / Consciousness: awake HEENT normocephalic, head/scalp atraumatic and hearing grossly normal bilaterally Mouth: oral and palatal mucosa normal Eyes PERRL and EOMs intact bilaterally Neck no lymphadenopathy, supple and no JVD Lymph Lymphatic: no lymphadenopathy noted and no lymphedema noted Resp Resp Narrative: on 2L of oxygen by nasal canula. Cardio regular rate, regular rhythm, S1 normal heart sound, S2 normal heart sound and no murmurs GI normal to inspection, nondistended, normoactive bowel sounds, soft to palpation and non-tender Extremity normal to inspection, full ROM, normal capillary refill and no clubbing, cyanosis or edema General Extremity: no tenderness to palpation of joints or extremities Skin no rashes or lesions noted General Skin Exam: no breakdown Neuro oriented x3, CN's II-XII intact bilaterally, moves all extremities, no focal motor deficits, no sensory deficits noted and deep tendon reflexes 2+ bilaterally Sensorium / Orientation: awake and alert Motor Exam: strength 5/5 throughout and general weakness Psych thought process normal and cooperative Appearance: appropriate Assessment & Plan Assessment/Plan (1) Atrial fibrillation: QUALIFIERS: Atrial fibrillation type: paroxysmal Qualified Code(s): I48.0 - Paroxysmal atrial fibrillation (2) Anemia: QUALIFIERS: Anemia type: iron deficiency Iron deficiency anemia type: unspecified iron deficiency Qualified Code(s): D50.9 - Iron deficiency anemia, unspecified PLAN: 82-year-old gentleman with multiple comorbidities currently being treated with antibiotics for bilateral cellulitis of the lower extremities. His hemoglobin is drifted down to 7. He did have occasional dark stools but no gross blood. Differential diagnosis for this would be upper GI bleed with rapidtransit, gastritis, duodenitis. He should undergo an upper endoscopy evaluate of the upper GI tract. PLAN: Plan The findings from the upper endoscopy were as follows : Impressions : - Normal esophagus. - Oozing gastric ulcers with a visible vessel. Injected. Treated with a heater probe. - Non-bleeding gastric ulcer with pigmented material. Treated with argon plasma coagulation (APC). - Non-bleeding gastric ulcers with no stigmata of bleeding. Biopsied. - No gross lesions in the first portion of the duodenum. Recommendations : - Discharge patient to home. - Clear liquid diet today. - No aspirin, ibuprofen, naproxen, or other non-steroidal anti-inflammatory drugs for 7 days. - Await pathology results. - Use Protonix (pantoprazole) 40 mg PO BID. Repeat upper endoscopy in approximately 2 months Charges/Coding Visit Charges Inpatient E&M: 35462 Subs Hosp L3 06/25/23 1708 <Electronically signed by Irving Friend DO> Cosigner Signature (if applicable): CC: ~ Signed [facility] Work Phone: 1([phone]) 673-461312-26-2023 Progress note Author William Dawson [facility] June 24, 2023 3:28pm Note Date/Time June 24, 2023 10:05am [facility] Medical Records Department [address] [place] [address] Progress Note - Engineering Specialist Technician 06/24/23 1002 MR#: [id number] Acct: [id number] Name: AMAURY BLANK Rep #:[id number] : 1940 82 From: William Dawson MD PCP: Dr. Rosa Maria Santacruz MD Status:ADM IN Location: [place] [address] Assessment & Plan Assessment/Plan (1) Acute respiratory failure with hypoxia: (2) Pancytopenia: PLAN: Plan RECOMMENDATIONS: 1. Consider transition to p.o. diuretics 2. Continue speech/swallow precautions 3. Wean oxygen as tolerated 4. Continue bronchodilators as needed only, but doubt need for systemic steroids 5. Okay to discontinue antibiotics from my perspective 6. Walking oximetry prior to discharge. High clinical suspicion of supplemental oxygen will be required IMPRESSIONS: 1. Acute hypoxic respiratory failure Unclear etiology at this time. Patient with significantly elevated oxygenrequirements yesterday that improved with Bumex therapy. Patient did have an elevated BNP on presentation. Patient is being seen by cardiology. Patient does have a previous PFT suggesting possible mixed ventilatory defect with a component of COPD. A CT scan completed in 2020 did not have fibrotic changes noted suggesting fluid as a possibility for restriction on PFT. As needed bronchodilators likely sufficient at this time. Patient does have significant pulmonary hypertension and this may be secondary to failure to comply with supplemental oxygen. Patient appears to have low physiologic signal for hypoxia. Okay to discontinue antibiotics from my perspective. ABG is not suggestive of CO2 retention at baseline. High clinical suspicion patient will require supplemental oxygen on discharge 2. Acute diastolic CHF with pulmonary hypertension Patient with elevated BNP on presentation. Patient did have some sinus bradycardia on presentation, but was on carvedilol and amiodarone at baseline. But heart rate appears to be better controlled at this time. Cardiology has been consulted. Patient is on aspirin and high intensity statin. Clinical suspicion that an element of pulmonary hypertension may be secondary to noncompliance with supplemental oxygen. Patient would have to have a right heart catheterization for quantification/classification of pulmonary hypertension once at baseline. Defer to cardiology on timing. Patient will need a walking oximetry prior to discharge as significant desaturation can be found with ambulation in the setting of pulmonary hypertension 3. CKD with hyperkalemia Patient did receive Kayexalate yesterday. Await nephrology recommendations moving forward. Baseline creatinine appears to be approximately2 and patient presented with a creatinine of 2.5. No indication for renal replacement therapy as hyperkalemia has been responsive to conservative therapy. Morning labs are currently pending. Defer to hospitalist. 4. Hypothyroidism/hyperlipidemia/frequent falls/advanced age/poor historian/pancytopenia Complicates care, management, recovery and prognosis. CODE STATUS has been verified is DNR/DNI. Patient should have therapy evaluate. Peripheral vascular disease likely has led to some proprioceptive issues. Previous workup for pancytopenia has been negative Subjective Subjective Patient did okay overnight. Patient found off of supplemental oxygen and was asymptomatic. Patient subsequently checked and found to be 80% saturation. Patient did not report any change with placement of supplemental oxygen. Objective Data Objective Data Vital Signs: Vital Signs Temp Pulse Resp BP Pulse Ox O2 Del Method O2 Flow Rate 36.6 C 57 L 18 150/90 H 92 Nasal Cannula 2 06/24/23 03:49 06/24/23 03:49 06/24/23 03:49 06/24/23 03:49 06/24/23 07:24 06/24/23 07:24 06/24/23 07:24 Oxygen Flow Rate (L/min) 2 Oxygen Delivery Method Nasal Cannula Weight: 85.1 kg Body Mass Index (BMI) 26.9 Intake & Output: Intake and Output for Last 24 Hours 06/22/23 06/23/23 06/24/23 23:59 23:59 23:59 Intake Total 1090 / 1390 870 / 870 50 / 50 Output Total 2725 / 3725 3900 / 5500 1600 / 1600 Balance -1635 / -2335 -3030 / -4630 -1550 / -1550 Lab / Micro Data Attestation: I reviewed the patient's lab results. 06/23/23 12:45 06/23/23 12:45 Labs: Laboratory Results - last 24 hr 06/23/23 12:45: WBC 4.4, RBC 2.20 L, Hgb 7.9 L, Hct 25.1 L, MCV 114.1 H, MCH 35.9 H, MCHC 31.5 L, RDW Std Deviation 78.6 H, RDW Coeff of Chanel 18.7 H, Plt Count94 L, MPV 10.4, Immature Gran % (Auto) 0.200, Neut % (Auto) 73.5 H, Lymph % (Auto) 11.9 L, Kendall % (Auto) 10.3 H, Eos % (Auto) 3.4, Baso % (Auto) 0.7, Absolute Neuts (auto) 3.2, Absolute Lymphs (auto) 0.52 L, Nucleated RBC % 0, Platelet Estimate SLT DEC, Anisocytosis 1+, Sodium 142, Potassium 5.1, Chloride 111 H, Carbon Dioxide 27.0, Anion Gap 4 L, BUN 57 H, Creatinine 2.52 H, Estim Creat Clear Calc 23.74, Est GFR (MDRD) Af Amer 32 L, Est GFR (MDRD) Non-Af 26 L,BUN/Creatinine Ratio 22.6 H, Glucose 142 H, Calcium 8.6 06/23/23 20:48: Urine Color Yellow, Urine Clarity Clear, Urine pH 7.0, Ur Specific [place] 1.010, Urine Protein Negative, Urine Glucose (UA) Normal, UrineKetones Negative, Urine Occult Blood Negative, Urine Nitrite Negative, Urine Bilirubin Negative, Urine Urobilinogen Normal, Ur Leukocyte Esterase Negative, Urine RBC 0 SEEN, Urine WBC 0 SEEN, Ur Squamous Epith Cells 0 SEEN, Urine Bacteria 0 SEEN, Urine Mucus 0 SEEN Physical Exam Const alert and oriented x3 Constitutional Narrative: Much better voice quality today compared to admission while lying flat. General Appearance: cooperative HEENT normocephalic; Negative for head/scalp atraumatic Eyes PERRL, EOMs intact bilaterally and no scleral icterus Eyes Narrative: No scleral injection noted Neck no lymphadenopathy, supple and no JVD Lymph Lymphatic: no lymphadenopathy noted and no lymphedema noted Resp Auscultation: diminished lung sounds; Negative for rales, rhonchi or wheezes Cardio regular rate, regular rhythm, S1 normal heart sound, S2 normal heart sound, no murmurs, no rub and no gallops Rate: bradycardia GI normal to inspection, nondistended, normoactive bowel sounds, soft to palpation and non-tender Extremity normal capillary refill and no clubbing, cyanosis or edema Extremity Narrative: Lower extremities wrapped General Extremity: no tenderness to palpation of joints or extremities Skin General Skin Exam: no breakdown Neuro CN's II-XII intact bilaterally, no focal motor deficits and no sensory deficits noted Psych thought process normal and cooperative Appearance: appropriate Charges/Coding Visit Charges Inpatient E&M: 71070 Subs Hosp L2 06/24/23 1528 <Electronically signed by William Dawson MD> Cosigner Signature (if applicable): CC: ~ Signed [facility] Work Phone: 1(899) 828-984212-26-2023 Progress note Author Lakshmi Carpenter [facility] June 24, 2023 3:26pm Note Date/Time June 24, 2023 10:17am [facility] Medical Records Department [address] [place] [id number] Progress Note - Cardiology 06/24/23 1016 MR#: [id number] Acct: [id number] Name: AMAURY BLANK Rep #:[id number] : 1940 82 From: Lakshmi Carpenter MD PCP: Dr. Rosa Maria Santacruz MD Status:ADM IN Location: [facility] [id number] <Statement entered by Lakshmi Carpenter MD - 06/24/23 15:26> Pt seen & evaluated w/LIBERTAD. I personally interviewed & exam the pt. I was involved in all aspects of pt's orders, interpretation of results & treatment Subjective Subjective Pt seen and examined. He has not complaints. Denies CP/SOB. He is on O2. Objective Data Vital Signs: Vital Signs Temp Pulse Resp BP Pulse Ox O2 Del Method O2 Flow Rate 97.4 F L 58 L 16 167/65 H 96 Nasal Cannula 5 06/24/23 09:54 06/24/23 09:54 06/24/23 09:54 06/24/23 09:54 06/24/23 09:54 06/24/23 10:03 06/24/23 10:03 Oxygen Flow Rate (L/min) 5 Oxygen Delivery Method Nasal Cannula Weight: 187 lb 9.814 oz Body Mass Index (BMI) 26.9 Intake & Output: Intake and Output for Last 24 Hours 06/22/23 06/23/23 06/24/23 23:59 23:59 23:59 Intake Total 1090 / 1390 870 / 870 50 / 50 Output Total 2725 / 3725 3900 / 5500 1600 / 1600 Balance -1635 / -2335 -3030 / -4630 -1550 / -1550 Lab / Micro Data 06/23/23 12:45 06/23/23 12:45 Labs: Laboratory Results - last 24 hr 06/23/23 12:45: WBC 4.4, RBC 2.20 L, Hgb 7.9 L, Hct 25.1 L, MCV 114.1 H, MCH 35.9 H, MCHC 31.5 L, RDW Std Deviation 78.6 H, RDW Coeff of Chanel 18.7 H, Plt Count 94 L, MPV 10.4, Immature Gran % (Auto) 0.200, Neut % (Auto) 73.5 H, Lymph % (Auto) 11.9 L, Kendall % (Auto) 10.3 H, Eos % (Auto) 3.4, Baso % (Auto) 0.7, Absolute Neuts (auto) 3.2, Absolute Lymphs (auto) 0.52 L, Nucleated RBC % 0, Platelet Estimate SLT DEC, Anisocytosis 1+, Sodium 142, Potassium 5.1, Chloride 111 H, Carbon Dioxide 27.0, Anion Gap 4 L, BUN 57 H, Creatinine 2.52 H, Estim Creat Clear Calc 23.74, Est GFR (MDRD) Af Amer 32 L, Est GFR (MDRD) Non-Af 26 L,BUN/Creatinine Ratio 22.6 H, Glucose 142 H, Calcium 8.6 06/23/23 20:48: Urine Color Yellow, Urine Clarity Clear, Urine pH 7.0, Ur Specific [place] 1.010, Urine Protein Negative, Urine Glucose (UA) Normal, UrineKetones Negative, Urine Occult Blood Negative, Urine Nitrite Negative, Urine Bilirubin Negative, Urine Urobilinogen Normal, Ur Leukocyte Esterase Negative, Urine RBC 0 SEEN, Urine WBC 0 SEEN, Ur Squamous Epith Cells 0 SEEN, Urine Bacteria 0 SEEN, Urine Mucus 0 SEEN Cardiology Labs/Tests 06/23/23 12:45: WBC 4.4, RBC 2.20 L, Hgb 7.9 L, Hct 25.1 L, MCV 114.1 H, MCH 35.9 H, MCHC 31.5 L, Plt Count 94 L, MPV 10.4, Immature Gran % (Auto) 0.200, Neut % (Auto) 73.5 H, Lymph % (Auto) 11.9 L, Kendall % (Auto) 10.3 H, Eos % (Auto) 3.4, Baso % (Auto) 0.7, Absolute Neuts (auto) 3.2, Nucleated RBC % 0, Sodium 142, Potassium 5.1, Chloride 111 H, Carbon Dioxide 27.0, Anion Gap 4 L, BUN 57 H, Creatinine 2.52 H, Est GFR (MDRD) Af Amer 32 L, Est GFR (MDRD) Non-Af 26 L, BUN/Creatinine Ratio 22.6 H, Glucose 142 H, Calcium 8.6 06/23/23 20:48: Urine Color Yellow, Urine Clarity Clear, Urine pH 7.0, Ur Specific [place] 1.010, Urine Protein Negative, Urine Glucose (UA) Normal, UrineKetones Negative, Urine Occult Blood Negative, Urine Nitrite Negative, Urine Bilirubin Negative, Urine Urobilinogen Normal, Ur Leukocyte Esterase Negative, Urine RBC 0 SEEN, Urine WBC 0 SEEN Rhythm: NSR Physical Exam Const alert, oriented x3 and no apparent distress HEENT normocephalic, head/scalp atraumatic, hearing grossly normal bilaterally, external ears normal, external nose normal and moist oral mucous membranes Eyes PERRL, EOMs intact bilaterally, conjunctivae normal and no scleral icterus Neck no lymphadenopathy, supple and no JVD Resp normal respiratory effort, no use of accessory muscles and clear to auscultationbilaterally Cardio regular rate, regular rhythm, S1 normal heart sound, S2 normal heart sound, no rub, no gallops, no clicks, no JVD and peripheral pulses 2+ throughout Heart Sounds: murmur systolic II/ soft GI normal to inspection, nondistended, normoactive bowel sounds, soft to palpation,non-tender and non-distended Extremity normal to inspection, normal capillary refill, no clubbing, cyanosis or edema and no pedal edema Neuro oriented x3, CN's II-XII intact bilaterally, moves all extremities and no focal motor deficits Psych cooperative and affect normal Assessment & Plan Assessment/Plan (1) Severe sinus bradycardia: (2) Hypertension: (3) Hyperlipidemia: (4) Atherosclerotic heart disease of [place] coronary artery without angina pectoris: QUALIFIERS: [place] vs. transplanted heart: [place] heart QualifiedCode(s): I25.10 - Atherosclerotic heart disease of [place] coronary artery without angina pectoris (5) Subclavian artery stenosis, left: (6) Atrial fibrillation: QUALIFIERS: Atrial fibrillation type: paroxysmal Qualified Code(s): I48.0 - Paroxysmal atrial fibrillation (7) Pulmonary hypertension: PLAN: Plan * With his bradycardiac recommend holding his BB and his amiodarone. Recommend that he have an event monitor on OP basis. * Bp is elevated. Will restart his Norvasc at 5 mg. Based on readings he may need to increased, will also reconsider his hydralazine. If needed this can be done as an OP. * Pt does have severe PHTN, this is being followed by Pulmonary. May need to consider a right heart cath on OP basis. * He does have a hx of PAF, he is not anticoagulated d/t his anemia. Now that he is off his BB and amiodarone, will need to monitor closely. He will have an event monitor done on Op basis. * Will follow up on OP. Charges/Coding Visit Charges Inpatient E&M: 67654 Subs Hosp L2 06/24/23 1522 <Electronically signed by Lakshmi Carpenter MD> Cosigner Signature (if applicable): 06/24/23 1031 <Electronically signed by Teresa ARITA> CC: ~ Signed [facility] Work Phone: 1(146) 232-889912-26-2023 Progress note [address] Priya [facility] June 24, 2023 2:51pm Note Date/Time June 24, 2023 9:45[facility] Medical Records Department [address] [place] [address] Progress Note 06/24/23 0941 MR#: [id number] Acct: [id number] Name: AMAURY BLANK Rep #:[id number] : 1940 82 From: Priya Sheehan MD PCP: Dr. Rosa Maria Santacruz MD Status:ADM IN Location: [place] [address] Subjective Subjective Patient seen and examined. He had no active complaints and had an uneventful night. Review of systems is othewise negative. He has remained hemodynamically stable. hb today is 7.9. Platelets are 94 today. Objective Data Objective Data Vital Signs: Vital Signs Temp Pulse Resp BP Pulse Ox O2 Del Method O2 Flow Rate 97.9 F 57 L 18 150/90 H 92 Nasal Cannula 2 06/24/23 03:49 06/24/23 03:49 06/24/23 03:49 06/24/23 03:49 06/24/23 07:24 06/24/23 07:24 06/24/23 07:24 Oxygen Flow Rate (L/min) 2 Oxygen Delivery Method Nasal Cannula Weight: 187 lb 9.814 oz Body Mass Index (BMI) 26.9 Intake & Output: Intake and Output for Last 24 Hours 06/22/23 06/23/23 06/24/23 23:59 23:59 23:59 Intake Total 1090 / 1390 870 / 870 50 / 50 Output Total 2725 / 3725 3900 / 5500 1600 / 1600 Balance -1635 / -2335 -3030 / -4630 -1550 / -1550 Lab / Micro Data 06/23/23 12:45 06/23/23 12:45 Labs: Laboratory Results - last 24 hr 06/23/23 12:45: WBC 4.4, RBC 2.20 L, Hgb 7.9 L, Hct 25.1 L, MCV 114.1 H, MCH 35.9 H, MCHC 31.5 L, RDW Std Deviation 78.6 H, RDW Coeff of Chanel 18.7 H, Plt Count 94 L, MPV 10.4, Immature Gran % (Auto) 0.200, Neut % (Auto) 73.5 H, Lymph % (Auto) 11.9 L, Kendall % (Auto) 10.3 H, Eos % (Auto) 3.4, Baso % (Auto) 0.7, Absolute Neuts (auto) 3.2, Absolute Lymphs (auto) 0.52 L, Nucleated RBC % 0, Platelet Estimate SLT DEC, Anisocytosis 1+, Sodium 142, Potassium 5.1, Chloride 111 H, Carbon Dioxide 27.0, Anion Gap 4 L, BUN 57 H, Creatinine 2.52 H, Estim Creat Clear Calc 23.74, Est GFR (MDRD) Af Amer 32 L, Est GFR (MDRD) Non-Af 26 L,BUN/Creatinine Ratio 22.6 H, Glucose 142 H, Calcium 8.6 06/23/23 20:48: Urine Color Yellow, Urine Clarity Clear, Urine pH 7.0, Ur Specific [place] 1.010, Urine Protein Negative, Urine Glucose (UA) Normal, UrineKetones Negative, Urine Occult Blood Negative, Urine Nitrite Negative, Urine Bilirubin Negative, Urine Urobilinogen Normal, Ur Leukocyte Esterase Negative, Urine RBC 0 SEEN, Urine WBC 0 SEEN, Ur Squamous Epith Cells 0 SEEN, Urine Bacteria 0 SEEN, Urine Mucus 0 SEEN Physical Exam Const alert, oriented x3 and no apparent distress General Appearance: cooperative HEENT normocephalic and head/scalp atraumatic Eyes PERRL and EOMs intact bilaterally Neck no lymphadenopathy, supple and no JVD Lymph Lymphatic: no lymphadenopathy noted and no lymphedema noted Resp Resp Narrative: moderately diminished breath sounds bibasally; bilateral crackles. down to room air. Cardio regular rate, regular rhythm, S1 normal heart sound, S2 normal heart sound and no murmurs GI normal to inspection, nondistended, normoactive bowel sounds, soft to palpation and non-tender Extremity normal capillary refill and no clubbing, cyanosis or edema General Extremity: no tenderness to palpation of joints or extremities Skin General Skin Exam: no breakdown Neuro CN's II-XII intact bilaterally, no focal motor deficits, no sensory deficits noted and deep tendon reflexes 2+ bilaterally Motor Exam: strength 5/5 throughout and general weakness Psych thought process normal and cooperative Appearance: appropriate Assessment & Plan Assessment/Plan (1) General weakness: (2) Debility: (3) Acute respiratory failure with hypoxia: (4) Aspiration pneumonia: PLAN: Plan #Acute hypoxic respiratory failure due to probable aspiration pneumonia * now down to 2L of oxygen. * speech therapy evaluated him and he was cleared for oral intake. * CXR done showed no evidence of pneumonia and showed small bilateral pleural effusion siwth bibasilar atelectasis * remains on IV zosyn due to concern for aspiration. * titrate oxygen to maintain sats >90% * pulmonology on board * #Sinus bradycardia * had first degree AV block also. troponins were negative * carvedilol adn amiodarone on hold * cardiology on board * has known EF of 60%, with RVSP of severe pulmonary hypertension. * carvedilol and amiodarone on hold. * #CAD s/p CABG and stents; on aspirin and high intensity statin. Beta anna on hold. #CKD IV with hyperkalemia: hyperkalemia resolved with treatmwnt. Cr is 2.32 today. #Pancytopenia: * Hb today was 7.9 yesterday * he did complain of dark stools * he has a history of PUDx and had EGD in November 2022 which showed bleeding peptic ulcer, which was cauterised. * Iron profile showed low iron levels of 34 with low TIBC. Iron saturation at 16.7 was on the lower side of normal and ferritin was elevated mildly at 399. This is more indicative of an anemia of chronic disease picture. * gastroenterology consulted. for EGD today. #Ulcerative colitis: on colazal #Hypothyroidism: on synthroid #Hyperlipidemia: on statin #Debility due to frequent falls: PT/OT on board. Fall precautions #History of COPD and emphysema: on had pneumothorax in August 2020 and was sen [facility] for CT evaluation. Had VATS. DVT prophylaxis; SCDs Charges/Coding Visit Charges Inpatient E&M: 53637 Subs Hosp L2 06/24/23 1458 <Electronically signed by Priya Sheehan MD> Priya Sheehan MD Cosigner Signature (if applicable): CC: ~ Signed [facility] Work Phone: 1([phone]) 720-811012-26-2023 Consult note Author Irving Friend [facility] June 24, 2023 11:41am Note Date/Time June 24, 2023 11:32am [facility] Medical Records Department [address] [place] [address] Consultation - GI 06/23/23 1131 MR#: [id number] Acct: [id number] Name: AMAURY BLANK Rep #:[id number] : 1940 82 From: Irving Horowitz DO PCP: Dr. Rosa Maria Santacruz MD Status:ADM IN [facility] HPI Consult Data Date of Consult: 06/23/23 HPI Narrative Reason for Consultation: Anemia HPI Narrative: AMAURY BLANK, is a 82 M who presents with worsening shortness of breath. He had been becoming increasingly dyspenic over the last several days. He stated about 1:30 AM today he felt like flutter waves, was short of breath was dizzy and lightheaded. Patient denied chest pressure tightness or congestion. He denies fever cough,recent URI symptoms or pneumonia like symptoms. Patient further said he had a fall about 3 times in the last 10 days. He fell yesterday, day before yesterdayand about 8 days ago. He states while turning he loses balance and then fall. He also has ulcer over right lower leg from fall which is chronic and follows with wound center. He also has a left heel ulcer and left leg ulcer is healing. He was also discovered to be bradycardic. His bradycardia was determined to be possibly secondary to his medications that he takes for atrial fibrillation and his beta-anna. Cardiology recommended with his bradycardiac to holding his BB and his amiodarone. Recommend that he have an event monitor on OP basis. HisBp is controlled on current medications. I was asked to see him due to worsening anemia. He is on antiplatelet therapy and anticoagulation. His hemoglobin was noted to be 7.9 with a platelet count of 94,000. He is not known to have liver disease. Patient he does not have anyimages of his abdomen and pelvis since 2016 at our institution where he had a CTangio of the abdomen pelvis. [facility] Medical History Alcohol use Atherosclerotic heart disease of [place] coronary artery without angina pectoris Atrial fibrillation and flutter Cardiology follow-up encounter Carotid artery stenosis Dietary restriction Elevated troponin Emphysema of lung Essential hypertension Fever Former smoker Hematemesis/vomiting blood High cholesterol History of atrial fibrillation History of cardioversion (~05/09/20) History of coronary artery disease History of echocardiogram History of edema History of GI bleed History of right inguinal hernia History of stress test History of transesophageal echocardiography (ROSI) History of umbilical hernia Hx of ulcerative colitis Hypercholesterolemia Hyperlipidemia Hypertension Injury of head and neck 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 Mitral valve insufficiency PAD (peripheral artery disease) Premature atrial contractions Right carotid bruit Subclavian artery stenosis, left (~10/15/19) Thrombocytopenia Thrombocytopenia Thyroid disease Ulcerative colitis Upper GI bleed Upper GI bleed Walker as ambulation aid Wears glasses Wears hearing aid Home Medications ferrous sulfate 325 mg (65 mg iron) tablet 325 mg PO DAILY vitamin 05/28/15 [History Last Taken 05/09/20] vitamin B complex 1 each PO DAILY vitamin 02/07/16 [History Last Taken 05/09/20] levothyroxine 50 mcg tablet 75 mcg PO DAILY thyroid 06/13/20 [History Last Taken Unknown] acetaminophen 500 mg tablet 1,000 mg (2 x 500 mg) PO Q6H PRN PRN Pain Score 1-5 #0 tabs 12/19/22 [Rx Last Taken Unknown] aspirin 81 mg tablet,delayed release 81 mg PO DAILY 04/14/23 [History Last Taken Unknown] atorvastatin 40 mg tablet (Lipitor) 40 mg PO DAILY cholesterol #90 tabs 04/14/23[Rx Last Taken Unknown] balsalazide 750 mg capsule (Colazal) 2,250 mg PO BID 04/14/23 [History Last Taken Unknown] hydralazine 50 mg tablet 50 mg PO BID 04/14/23 [History Last Taken Unknown] amiodarone 200 mg tablet See Rx Instructions .Route .COMPLEX #90 TABLETS 05/09/23 [Rx Last Taken Unknown] amlodipine 10 mg tablet 10 mg PO DAILY #90 tabs 05/20/23 [Rx Last Taken Unknown] carvedilol 3.125 mg tablet 3.125 mg PO BID heart #180 tabs 05/21/23 [Rx Last Taken Unknown] lisinopril 20 mg tablet 20 mg PO DAILY #90 tabs 05/21/23 [Rx Last Taken Unknown] ciprofloxacin HCl 750 mg tablet 750 mg PO BID 2 weeks #28 tabs 06/09/23 [Rx Last Taken Unknown] doxycycline hyclate 100 mg capsule 100 mg PO BID 2 weeks #28 caps 06/09/23 [Rx Last Taken Unknown] Allergy/AdvReac Type Severity Reaction Status Date / Time hydrochlorothiazide Allergy Severe Rash Verified 06/20/23 00:46 furosemide [From Lasix] Allergy Severe Verified 06/20/23 00:46 Rash Itchy lovastatin [From Mevacor] Allergy Rash Verified 06/20/23 00:46 Family History Father CAD (coronary artery disease) Mother Cancer breast Surgical History Aortocoronary bypass status (~02/12/17) History of cardiac catheterization History of hand surgery History of right inguinal hernia repair History of umbilical hernia repair History of vasectomy Hx of CABG Hx of colonoscopy Hx of esophagogastroduodenoscopy Hx of heart bypass surgery S/P right inguinal hernia repair S/P umbilical hernia repair, follow-up exam Status post insertion of drug-eluting stent into right coronary artery for coronary artery disease (~04/2009) Social History adopted: No household members: spouse housing: house number of children: 2 current occupational status: retired Smoking Status: Former smoker Tobacco: How many years used: 50 (stopped about 10 yrs ago) how long ago did patient quit smokin years ago alcohol intake: current alcohol intake frequency: 3 or more drinks per day Alcohol type: beer, wine and hard liquor substance use type: does not use caffeine: Yes Type: coffee Number of servings: 2 ROS Constitutional Constitutional: Reports weakness; Denies chills, fever(s) or weight gain ENT HEENT: Denies headache(s), nasal congestion or nasal discharge Cardiovascular Cardiovascular: Denies chest pain or palpitations Respiratory/Chest Respiratory/Chest: Denies cough, excessive phlegm production or shortness of breath with exertion Gastrointestinal Gastrointestinal: Denies abdominal pain, nausea or vomiting Genitourinary Genitourinary: Denies dysuria Musculoskeletal Musculoskeletal: Denies joint pain or joint swelling Integumentary Integumentary: Denies rash or wounds Neurologic Neurologic: Denies focal weakness, numbness or tingling Psychiatric Psychiatric: Denies anxiety, auditory hallucinations, depression, homicidal ideation or suicidal ideation Physical Exam Const alert, oriented x3 and no apparent distress HEENT normocephalic, head/scalp atraumatic, hearing grossly normal bilaterally, external ears normal, external nose normal and moist oral mucous membranes Eyes PERRL, EOMs intact bilaterally, conjunctivae normal and no scleral icterus Neck no lymphadenopathy, supple and no JVD Resp normal respiratory effort, no use of accessory muscles and clear to auscultationbilaterally Cardio regular rate, regular rhythm, S1 normal heart sound, S2 normal heart sound, no rub, no gallops, no clicks, no JVD and peripheral pulses 2+ throughout Heart Sounds: murmur systolic II/ soft GI normal to inspection, nondistended, normoactive bowel sounds, soft to palpation,non-tender and non-distended Extremity normal to inspection, normal capillary refill, no clubbing, cyanosis or edema and no pedal edema Neuro oriented x3, CN's II-XII intact bilaterally, moves all extremities and no focal motor deficits Psych cooperative and affect normal Lab / Micro Data 06/24/23 10:25 06/23/23 12:45 Labs: Laboratory Results - last 24 hr 06/23/23 12:45: WBC 4.4, RBC 2.20 L, Hgb 7.9 L, Hct 25.1 L, MCV 114.1 H, MCH 35.9 H, MCHC 31.5 L, RDW Std Deviation 78.6 H, RDW Coeff of Chanel 18.7 H, Plt Count 94 L, MPV 10.4, Immature Gran % (Auto) 0.200, Neut % (Auto) 73.5 H, Lymph % (Auto) 11.9 L, [place] % (Auto) 10.3 H, Eos % (Auto) 3.4, Baso % (Auto) 0.7, Absolute Neuts (auto) 3.2, Absolute Lymphs (auto) 0.52 L, Nucleated RBC % 0, Platelet Estimate SLT DEC, Anisocytosis 1+, Sodium 142, Potassium 5.1, Chloride 111 H, Carbon Dioxide 27.0, Anion Gap 4 L, BUN 57 H, Creatinine 2.52 H, Estim Creat Clear Calc 23.74, Est GFR (MDRD) Af Amer 32 L, Est GFR (MDRD) Non-Af 26 L,BUN/Creatinine Ratio 22.6 H, Glucose 142 H, Calcium 8.6 06/23/23 20:48: Urine Color Yellow, Urine Clarity Clear, Urine pH 7.0, Ur Specific [place] 1.010, Urine Protein Negative, Urine Glucose (UA) Normal, UrineKetones Negative, Urine Occult Blood Negative, Urine Nitrite Negative, Urine Bilirubin Negative, Urine Urobilinogen Normal, Ur Leukocyte Esterase Negative, Urine RBC 0 SEEN, Urine WBC 0 SEEN, Ur Squamous Epith Cells 0 SEEN, Urine Bacteria 0 SEEN, Urine Mucus 0 SEEN 06/24/23 10:25: WBC 3.9 L, RBC 2.12 L, Hgb 7.2 L, Hct 23.7 L, MCV 111.8 H, MCH 34.0 H, MCHC 30.4 L, RDW Std Deviation 74.2 H, RDW Coeff of Chanel 18.1 H, Plt Count78 L, MPV 9.9, Immature Gran % (Auto) 0.300, Neut % (Auto) 71.1 H, Lymph % (Auto) 14.8 L, [place] % (Auto) 9.7, Eos % (Auto) 3.6, Baso % (Auto) 0.5, Absolute Neuts (auto) 2.8, Absolute Lymphs (auto) 0.58 L, Nucleated RBC % 0, DifferentialComment SCANNED, Diff Path Review October, Platelet Estimate SLT DEC, Anisocytosis 2+, Microcytosis 1+, Macrocytosis 1+ Assessment & Plan Assessment/Plan (1) Atrial fibrillation: QUALIFIERS: Atrial fibrillation type: paroxysmal Qualified Code(s): I48.0 - Paroxysmal atrial fibrillation (2) Anemia: QUALIFIERS: Anemia type: iron deficiency Iron deficiency anemia type: unspecified iron deficiency Qualified Code(s): D50.9 - Iron deficiency anemia, unspecified PLAN: 82-year-old gentleman with multiple comorbidities currently being treated with antibiotics for bilateral cellulitis of the lower extremities. His hemoglobin is drifted down to 7. He did have occasional dark stools but no gross blood. Differential diagnosis for this would be upper GI bleed with rapidtransit, gastritis, duodenitis. He should undergo an upper endoscopy evaluate of the upper GI tract. He was explained alternatives, risk, benefits including understanding bleeding, infection, sepsis, perforation, need emergent and . Have an ASA of 3. 06/24/23 1141 <Electronically signed by Irving Friend DO> Cosigner Signature (if applicable): CC: TESSA Menendez; Dr. Rosa Maria Santacruz MD; Dr. William Dawson MD; Dr. Robby Lai DO; Dr. Lakshmi Carpenter MD; Dr. Kvng James MD; Dr. Daniel Jimenez MD; Dr. Oniel Moulton MD; Dr. Rufus Bruner MD~ Signed [facility] Work Phone: 1(153) 247-409112-26-2023 Procedure [facility] 06-24-2023 Procedure [facility]12-25-20[address] Priya [facility] June 23, 2023 12:57pm Note Date/Time June 23, 2023 10:34am [facility] Medical Records Department [address] [place] [address] Progress Note 06/23/23 1031 MR#: [id number] Acct: [id number] Name: AMAURY BLANK Rep #:[id number] : 1940 82 From: Priya Sheehan MD PCP: Dr. Rosa Maria Santacruz MD Status:ADM IN Location: [place] [address] Subjective Subjective Patient seen and examined. He feels he is getting better. His breathing has improved. He has no other complaints. Upon further inquiry patient admits to having dark stools yesterday but has not had any since that. He is hemoglobin dropped to 7.2 yesterday and is pending today. He does have a history of peptic ulcer disease. Objective Data Objective Data Vital Signs: Vital Signs Temp Pulse Resp BP Pulse Ox O2 Del Method O2 Flow Rate 98.1 F 91 18 159/58 H 94 Nasal Cannula 4 06/23/23 05:00 06/23/23 05:00 06/23/23 05:00 06/23/23 05:00 06/23/23 07:29 06/23/23 07:29 06/23/23 07:38 Oxygen Flow Rate (L/min) 4 Oxygen Delivery Method Nasal Cannula Weight: 187 lb 9.814 oz Body Mass Index (BMI) 26.9 Intake & Output: Intake and Output for Last 24 Hours 06/21/23 06/22/23 06/23/23 23:59 23:59 23:59 Intake Total 2359.17 / 2359.17 1090 / 1390 600 / 600 Output Total 400 / 400 2725 / 3725 2500 / 2500 Balance 1959.17 / 1958.17 -1635 / -2335 -1900 / -1900 Lab / Micro Data 06/22/23 08:37 06/22/23 08:37 Labs: Laboratory Results - last 24 hr 06/22/23 08:37: Iron 34 L, TIBC 204 L, Iron Saturation 16.7, Ferritin 399 H Physical Exam Const alert, oriented x3 and no apparent distress General Appearance: cooperative HEENT normocephalic and head/scalp atraumatic Eyes PERRL and EOMs intact bilaterally Neck no lymphadenopathy, supple and no JVD Lymph Lymphatic: no lymphadenopathy noted and no lymphedema noted Resp Resp Narrative: moderately diminished breath sounds bibasally; bilateral crackles. On 4L of oxygen by nasal canula Cardio regular rate, regular rhythm, S1 normal heart sound, S2 normal heart sound and no murmurs GI normal to inspection, nondistended, normoactive bowel sounds, soft to palpation and non-tender Extremity normal capillary refill and no clubbing, cyanosis or edema General Extremity: no tenderness to palpation of joints or extremities Skin General Skin Exam: no breakdown Neuro CN's II-XII intact bilaterally, no focal motor deficits, no sensory deficits noted and deep tendon reflexes 2+ bilaterally Motor Exam: strength 5/5 throughout and general weakness Psych thought process normal and cooperative Appearance: appropriate Assessment & Plan Assessment/Plan (1) General weakness: (2) Debility: (3) Acute respiratory failure with hypoxia: (4) Aspiration pneumonia: PLAN: Plan #Acute hypoxic respiratory failure due to probable aspiration pneumonia * remains on 4L of oxygen by nasal canula * speech therapy evaluated him and he was cleared for oral intake. * CXR done showed no evidence of pneumonia and showed small bilateral pleural effusion siwth bibasilar atelectasis * remains on IV zosyn due to concern for aspiration. * titrate oxygen to maintain sats >90% * pulmonology on board * #Sinus bradycardia * had first degree AV block also. troponins were negative * carvedilol adn amiodarone on hold * cardiology on board * has known EF of 60%, with RVSP of severe pulmonary hypertension. * carvedilol and amiodarone on hold. * #CAD s/p CABG and stents; on aspirin and high intensity statin. Beta anna on hold. #CKD IV with hyperkalemia: hyperkalemia resolved with treatmwnt. Cr is 2.32 today. #Pancytopenia: * CBC pending today; Hb was down to 7.2 yesterday * he did complain of dark stools yesterday * he has a history of PUDx and had EGD in November 2022 which showed bleeding peptic ulcer, which was cauterised. * Iron profile showed low iron levels of 34 with low TIBC. Iron saturation at 16.7 was on the lower side of normal and ferritin was elevated mildly at 399. This is more indicative of an anemia of chronic disease picture. * will hold aspirin; consult GI * transfuse if Hb < 7 #Ulcerative colitis: on colazal #Hypothyroidism: on synthroid #Hyperlipidemia: on statin #Debility due to frequent falls: PT/OT on board. Fall precautions #History of COPD and emphysema: on had pneumothorax in August 2020 and was [facility] for CT evaluation. Had VATS. DVT prophylaxis; SCDs Charges/Coding Visit Charges Inpatient E&M: 68092 Subs Hosp L3 06/23/23 1257 <Electronically signed by Priya Sheehan MD> Priya Sheehan MD Cosigner Signature (if applicable): CC: ~ Signed [facility] Work Phone: 1(208) 377-729812-25-2023 Progress note Author William Dawson [facility] June 23, 2023 6:15am Note Date/Time June 23, 2023 6:15am [facility] Medical Records Department [address] [place] [address] Progress Note - Engineering Specialist Technician 06/23/23611 MR#: [id number] Acct: [id number] Name: AMAURY BLANK Rep #:[id number] : 1940 82 From: William Dawson MD PCP: Dr. Rosa Maria Santacruz MD Status:ADM [facility] Assessment & Plan Assessment/Plan (1) Acute respiratory failure with hypoxia: (2) Pancytopenia: PLAN: Plan RECOMMENDATIONS: 1. Consider transition to p.o. diuretics 2. Continue speech/swallow precautions 3. Wean oxygen as tolerated 4. Continue bronchodilators as needed only, but doubt need for systemic steroids 5. Okay to discontinue antibiotics if culture negative at 48 hours 6. Walking oximetry prior to discharge IMPRESSIONS: 1. Acute hypoxic respiratory failure Unclear etiology at this time. Patient with significantly elevated oxygenrequirements yesterday that improved with Bumex therapy. Patient did have an elevated BNP on presentation. Patient is being seen by cardiology. Patient does have a previous PFT suggesting possible mixed ventilatory defect with a component of COPD. A CT scan completed in 2020 did not have fibrotic changes noted suggesting fluid as a possibility for restriction on PFT. As needed bronchodilators likely sufficient at this time. Patient does have significant pulmonary hypertension and this may be secondary to failure to comply with supplemental oxygen. Okay to continue with antibiotics for now, but these can likely be discontinued at 48 hours if patient remains afebrile and culture negative. ABG is not suggestive of CO2 retention at baseline. High clinical suspicion patient will require supplemental oxygen on discharge 2. Acute diastolic CHF with pulmonary hypertension Patient with elevated BNP on presentation. Patient did have some sinus bradycardia on presentation, but was on carvedilol and amiodarone at baseline. But heart rate appears to be better controlled at this time. Cardiology has been consulted. Patient is on aspirin and high intensity statin. Clinical suspicion that an element of pulmonary hypertension may be secondary to noncompliance with supplemental oxygen. Patient would have to have a right heart catheterization for quantification/classification of pulmonary hypertension once at baseline. Defer to cardiology on timing. Patient will need a walking oximetry prior to discharge as significant desaturation can be found with ambulation in the setting of pulmonary hypertension 3. CKD with hyperkalemia Patient did receive Kayexalate yesterday. Await nephrology recommendations moving forward. Baseline creatinine appears to be approximately2 and patient presented with a creatinine of 2.5. No indication for renal replacement therapy as hyperkalemia has been responsive to conservative therapy. Morning labs are currently pending. Defer to hospitalist. 4. Hypothyroidism/hyperlipidemia/frequent falls/advanced age/poor historian/pancytopenia Complicates care, management, recovery and prognosis. CODE STATUS has been verified is DNR/DNI. Patient should have therapy evaluate. Peripheral vascular disease likely has led to some proprioceptive issues. Previous workup for pancytopenia has been negative Subjective Subjective Patient did well overnight. Patient was sitting upright in the bed on my evaluation and was much more appropriate. Patient stating he has not had supplemental oxygen at home. Patient does live independently despite multiple falls recently. Objective Data Objective Data Vital Signs: Vital Signs Temp Pulse Resp BP Pulse Ox O2 Del Method O2 Flow Rate 36.7 C 57 L 18 150/60 H 94 Nasal Cannula 3 06/22/23 21:12 06/22/23 21:12 06/22/23 21:12 06/22/23 21:12 06/22/23 21:12 06/23/23 03:51 06/23/23 03:51 Oxygen Flow Rate (L/min) 3 Oxygen Delivery Method Nasal Cannula Weight: 85.1 kg Body Mass Index (BMI) 26.9 Intake & Output: Intake and Output for Last 24 Hours 06/21/23 06/22/23 06/23/23 23:59 23:59 23:59 Intake Total 2359.17 / 2359.17 1090 / 1390 350 / 350 Output Total 400 / 400 2725 / 3725 1000 / 1000 Balance 1958.17 / 1958.17 -1635 / -2335 -650 / -650 Lab / Micro Data Attestation: I reviewed the patient's lab results. Lab results narrative: Morning labs are currently pending 06/22/23 08:37 06/22/23 08:37 Labs: Laboratory Results - last 24 hr 06/22/23 08:37: WBC 3.5 L, RBC 2.10 L, Hgb 7.2 L, Hct 23.9 L, MCV 113.8 H, MCH 34.3 H, MCHC 30.1 L, RDW Std Deviation 80.4 H, RDW Coeff of Chanel 19.2 H, Plt Count 83 L, MPV 10.8, Immature Gran % (Auto) 0.300, Neut % (Auto) 67.6, Lymph % (Auto) 17.2 L, Kendall % (Auto) 11.7 H, Eos % (Auto) 2.6, Baso % (Auto) 0.6, Absolute Neuts (auto) 2.4, Absolute Lymphs (auto) 0.60 L, Nucleated RBC % 0, Differential Comment SCANNED, Diff Path Review May foll, Platelet Estimate MOD DEC, Anisocytosis 2+, Microcytosis 1+, Macrocytosis 1+, Sodium 144, Potassium 4.6, Chloride 113 H, Carbon Dioxide 27.0, Anion Gap 4 L, BUN 51 H, Creatinine 2.32 H, Estim Creat Clear Calc 25.78, Est GFR (MDRD) Af Amer 35 L, Est GFR (MDRD) Non-Af 29 L, BUN/Creatinine Ratio 22.0 H, Glucose 90, Calcium 8.6, Iron 34 L, TIBC 204 L, Iron Saturation 16.7, Ferritin 399 H Physical Exam Const alert and oriented x3 Constitutional Narrative: Much better voice quality today compared to yesterday General Appearance: cooperative HEENT normocephalic; Negative for head/scalp atraumatic Eyes PERRL, EOMs intact bilaterally and no scleral icterus Eyes Narrative: Slight scleral injection noted Neck no lymphadenopathy, supple and no JVD Lymph Lymphatic: no lymphadenopathy noted and no lymphedema noted Resp Auscultation: diminished lung sounds; Negative for rales, rhonchi or wheezes Cardio regular rate, regular rhythm, S1 normal heart sound, S2 normal heart sound, no murmurs, no rub and no gallops GI normal to inspection, nondistended, normoactive bowel sounds, soft to palpation and non-tender Extremity no clubbing, cyanosis or edema Extremity Narrative: Lower extremities wrapped General Extremity: no tenderness to palpation of joints or extremities Skin General Skin Exam: no breakdown Neuro CN's II-XII intact bilaterally, no focal motor deficits and no sensory deficits noted Psych thought process normal and cooperative Appearance: appropriate Charges/Coding Visit Charges Inpatient E&M: 32536 Subs Hosp L2 06/23/23 0615 <Electronically signed by William Dawson MD> Cosigner Signature (if applicable): CC: ~ Signed [facility] Work Phone: 1(825) 753-759912-24-2023 Progress [facility] June 22, 2023 1:56pm Note Date/Time June 22, 2023 10:51am [facility] Medical Records Department [address] [place] [address] Progress Note 06/22/23 1049 MR#: [id number] Acct: [id number] Name: MAAURY BLANK Rep #:[id number] : 1940 82 From: Priya Sheehan MD PCP: Dr. Rosa Maria Santacruz MD Status:ADM IN Location: [place] [address] Subjective Subjective Patient seen and examined. He feels much better today. He had an uneventful night and is down to 4L today. He still has an occasional cough but otherwise feels much better. Review of systems is otherwise negative. Objective Data Objective Data Vital Signs: Vital Signs Temp Pulse Resp BP Pulse Ox O2 Del Method O2 Flow Rate 97.6 F L 61 16 128/72 H 93 Nasal Cannula 4 06/22/23 09:40 06/22/23 09:40 06/22/23 09:40 06/22/23 09:40 06/22/23 09:40 06/22/23 09:40 06/22/23 09:40 Oxygen Flow Rate (L/min) 4 Oxygen Delivery Method Nasal Cannula Weight: 187 lb 9.814 oz Body Mass Index (BMI) 26.9 Intake & Output: Intake and Output for Last 24 Hours 06/20/23 06/21/23 06/22/23 23:59 23:59 23:59 Intake Total 2518.33 / 2538.33 2359.17 / 2359.17 400 / 400 Output Total 400 / 400 400 / 400 400 / 400 Balance 2118.33 / 2138.33 1959.17 / 1959.17 0 / 0 Lab / Micro Data 06/22/23 08:37 06/22/23 08:37 Labs: Laboratory Results - last 24 hr 06/21/23 05:57: B-Natriuretic Peptide 976.4 H 06/22/23 08:37: WBC 3.5 L, RBC 2.10 L, Hgb 7.2 L, Hct 23.9 L, MCV 113.8 H, MCH 34.3 H, MCHC 30.1 L, RDW Std Deviation 80.4 H, RDW Coeff of Chanel 19.2 H, Plt Count83 L, MPV 10.8, Immature Gran % (Auto) 0.300, Neut % (Auto) 67.6, Lymph % (Auto)17.2 L, Kendall % (Auto) 11.7 H, Eos % (Auto) 2.6, Baso % (Auto) 0.6, Absolute Neuts (auto) 2.4, Absolute Lymphs (auto) 0.60 L, Nucleated RBC % 0, DifferentialComment SCANNED, Diff Path Review May foll, Platelet Estimate MOD DEC, Anisocytosis 2+, Microcytosis 1+, Macrocytosis 1+, Sodium 144, Potassium 4.6, Chloride 113 H, Carbon Dioxide 27.0, Anion Gap 4 L, BUN 51 H, Creatinine 2.32 H,Estim Creat Clear Calc 25.78, Est GFR (MDRD) Af Amer 35 L, Est GFR (MDRD) Non-Af29 L, BUN/Creatinine Ratio 22.0 H, Glucose 90, Calcium 8.6 Radiography Diagnostic Testing: Radiology Impression Chest X-Ray 06/21/23 13:55 IMPRESSION: Small bilateral pleural effusions with bibasilar atelectasis. Cardiomegaly. Electronically Signed: Mayank Haddad MD at 14:49 EST , Physical Exam Const alert, oriented x3 and no apparent distress General Appearance: cooperative HEENT normocephalic and head/scalp atraumatic Eyes PERRL and EOMs intact bilaterally Neck no lymphadenopathy, supple and no JVD Lymph Lymphatic: no lymphadenopathy noted and no lymphedema noted Resp Resp Narrative: moderately diminished breath sounds bibasally; bilateral crackles. On 8L of oxygen by nasal canula Cardio regular rate, regular rhythm, S1 normal heart sound, S2 normal heart sound and no murmurs GI normal to inspection, nondistended, normoactive bowel sounds, soft to palpation and non-tender Extremity normal capillary refill and no clubbing, cyanosis or edema General Extremity: no tenderness to palpation of joints or extremities Skin General Skin Exam: no breakdown Neuro CN's II-XII intact bilaterally, no focal motor deficits, no sensory deficits noted and deep tendon reflexes 2+ bilaterally Motor Exam: strength 5/5 throughout and general weakness Psych thought process normal and cooperative Appearance: appropriate Assessment & Plan Assessment/Plan (1) General weakness: (2) Debility: (3) Acute respiratory failure with hypoxia: (4) Aspiration pneumonia: PLAN: Plan #Acute hypoxic respiratory failure due to probable aspiration pneumonia * patient noted to be choking on his food today. * now down to 4L of oxygen. Required up to 10L yesterday * speech therapy evaluated him and he was cleared for oral intake. * CXR done showed no evidence of pneumonia and showed small bilateral pleural effusion siwth bibasilar atelectasis * CXR ordered on admission showed mild cardiomegaly with blunting of both costophrenic angles and the atelectasis and/or infiltrate at the left lung base. * on zosyn due to concern for aspiration. * titrate oxygen to maintain sats >90% * pulmonology consulted yesterday due to worsening respiratory status. * #Sinus bradycardia * had first degree AV block also. troponins were negative * carvedilol adn amiodarone on hold * cardiology on board * has known EF of 60%, with RVSP of severe pulmonary hypertension. * carvedilol and amiodarone on hold. * #CAD s/p CABG and stents; on aspirin and high intensity statin. Beta anna on hold. #CKD IV with hyperkalemia: hyperkalemia resolved with treatmwnt. Cr is 2.32 today. #Pancytopenia: * wbc today is 3.5, with hb of 7.2 and platelets of 83. baseline Hb is ~ 8-9. * Aetiology is unclear. Will check stool for occult blood for anemia. Check iron profile also. * Monitor Hb and transfuse if Hb <7. #Ulcerative colitis: on colazal #Hypothyroidism: on synthroid #Hyperlipidemia: on statin #Debility due to frequent falls: PT/OT on board. Fall precautions #History of COPD and emphysema: on had pneumothorax in August 2020 and was sen [facility] for CT evaluation. Had VATS. DVT prophylaxis; SCDs Charges/Coding Visit Charges Inpatient E&M: 72749 Subs Hosp L2 06/22/23 0031 <Electronically signed by Priya Sheehan MD> Priya Sheehan MD Cosigner Signature (if applicable): CC: ~ Signed [facility] Work Phone: 1(188) 889-776012-24-2023 Consult note Author William Dawson [facility] June 22, 2023 8:49am Note Date/Time June 22, 2023 8:48am [facility] Medical Records Department [address] [place] [address] Consultation - Engineering Specialist Technician 06/22/23 0829 MR#: [id number] Acct: [id number] Name: AMAURY BLANK Rep #:[id number] : 1940 82 From: William Dawson MD PCP: Dr. Rosa Maria Santacruz MD Status:ADM IN Location: [place] [address] Assessment & Plan Assessment/Plan (1) Acute respiratory failure with hypoxia: (2) Pancytopenia: PLAN: Plan RECOMMENDATIONS: 1. Continue diuresis as tolerated 2. Speech/swallow precautions 3. Wean oxygen as tolerated 4. Continue bronchodilators as needed only, but doubt need for systemic steroids 5. Consider Trendelenburg positioning to avoid aspiration if demands lying flat 6. Okay to discontinue antibiotics if culture negative at 48 hours 7. Walking oximetry prior to discharge IMPRESSIONS: 1. Acute hypoxic respiratory failure Unclear etiology at this time. Patient with significantly elevated oxygenrequirements yesterday that improved with Bumex therapy. Patient did have an elevated BNP on presentation. Patient is being seen by cardiology. Patient does have a previous PFT suggesting possible mixed ventilatory defect with a component of COPD. A CT scan completed in 2020 did not have fibrotic changes noted suggesting fluid as a possibility for restriction on PFT. As needed bronchodilators likely sufficient at this time. Patient does have significant pulmonary hypertension and this may be secondary to failure to comply with supplemental oxygen. Would recommend patient be in a Trendelenburg position to avoid aspiration. Okay to continue with antibiotics for now, but these can likely be discontinued at 48 hours if patient remains afebrile and culture negative. ABG is not suggestive of CO2 retention at baseline. 2. Acute diastolic CHF with pulmonary hypertension Patient with elevated BNP on presentation. Patient did have some sinus bradycardia on presentation, but was on carvedilol and amiodarone at baseline. But heart rate appears to be better controlled at this time. Cardiology has been consulted. Patient is on aspirin and high intensity statin. Clinical suspicion that an element of pulmonary hypertension may be secondary to noncompliance with supplemental oxygen. Patient would have to have a right heart catheterization for quantification/classification of pulmonary hypertension onceat baseline. Patient will need a walking oximetry prior to discharge as significant desaturation can be found with ambulation in the setting of pulmonary hypertension 3. CKD with hyperkalemia Patient did receive Kayexalate yesterday. Await nephrology recommendations moving forward. Baseline creatinine appears to be approximately2 and patient presented with a creatinine of 2.5. No indication for renal replacement therapy as hyperkalemia has been responsive to conservative therapy. 4. Hypothyroidism/hyperlipidemia/frequent falls/advanced age/poor historian/pancytopenia Complicates care, management, recovery and prognosis. CODE STATUS has been verified is DNR/DNI. Patient should have therapy evaluate. Peripheral vascular disease likely has led to some proprioceptive issues. Previous workup for pancytopenia has been negative HPI Consult Data Date of Consult: 06/22/23 HPI Narrative Reason for Consultation: Hypoxia HPI Narrative: AMAURY BLANK is an 82 M, with past medical history listed below, [facility] secondary to progressive palpitations and shortness of breath. Patient reportedly had not been feeling well for 3 days prior to presentation. Patient states that on the day of presentation hehad a fall was able to get up. However, overnight he started to have palpitations with a heart rate of 500 and EMS was called. EMS had placed him on oxygen. Patient denied any fever, chills, chest pain, nausea or vomiting at that time. In the ER, patient was afebrile, but tachypneic at 20 breaths/min. Patient had a heart rate of 60 and was normotensive. Patient was initially tolerating room air, but just prior to admission became hypotensive with a blood pressure of 91/45 and 86% on room air. Laboratory data at that time showed a white blood cell count of 3.7, hemoglobin of 7.8 and platelets of 97. Chemistry showed an elevated potassium of 5.7, BUN of 47 and creatinine of 2.5. Patient's initial troponin was unremarkable, but glucose was noted to be 40 on repeat check. Chest x-ray showed a nonspecific left retrocardiac infiltrate. EKG showed a sinus rhythm with a first-degree AV block. Patient was treated for hyperkalemiamedically with some improvement. Upon rising patient was noted to be lightheaded and hypoglycemic. Patient was given a dose of IV dextrose with improvement. Patient was admitted to the floor for further evaluation. Yesterday, patient required 10 L/min of supplemental oxygen to maintain saturations, so a pulmonary consult was obtained. Patient states he feels much improved today. Patient is lying flat with a very gurgly voice. Patient stateshe likes to lay like this as this leads to less back pain. Patient does admit that he was recently placed on Lasix therapy and this has given me new legs. Patient does report a history of smoking in the past, but quit sometime ago. Patient is unaware of ever seeing a registered nurse obstetrics or having a PFT. However, review of the electronic medical record shows patient did have a PFT in 2019 showing a moderate mixed ventilatory defect with a symmetric reduction diffusioncapacity (FVC 81%, FEV1 67%, TLC 68%, DLCO 71%). Patient is not on any inhalersat this time. Electronic medical record also shows patient has had a recent echocardiogram in November showing an EF of 60% with moderate concentric LVH and severe pulmonary hypertension with a pulmonary pressure of 77 mmHg. Patient also noted to have severe mitral calcification. Patient is a relatively poor historian. It is unclear if patient is on baselinesupplemental oxygen. Patient does state that he has been admitted in [place] previously. Patient does report a history of pleural effusions, but is unaware of when the last tap was necessary. Patient also has a history of chronic kidney disease and believes he is doing okay. Given limitations, review of systems otherwise negative from a constitutional, HEENT, respiratory, cardiovascular, GI, genitourinary, musculoskeletal, skin, neurologic, psychiatric and hematologic system unless stated above. [facility] Medical History Alcohol use Atherosclerotic heart disease of [place] coronary artery without angina pectoris Atrial fibrillation and flutter Cardiology follow-up encounter Carotid artery stenosis Dietary restriction Elevated troponin Emphysema of lung Essential hypertension Fever Former smoker Hematemesis/vomiting blood High cholesterol History of atrial fibrillation History of cardioversion (~05/09/20) History of coronary artery disease History of echocardiogram History of edema History of GI bleed History of right inguinal hernia History of stress test History of transesophageal echocardiography (ROSI) History of umbilical hernia Hx of ulcerative colitis Hypercholesterolemia Hyperlipidemia Hypertension Injury of head and neck 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 Mitral valve insufficiency PAD (peripheral artery disease) Premature atrial contractions Right carotid bruit Subclavian artery stenosis, left (~10/15/19) Thrombocytopenia Thrombocytopenia Thyroid disease Ulcerative colitis Upper GI bleed Upper GI bleed Walker as ambulation aid Wears glasses Wears hearing aid Home Medications ferrous sulfate 325 mg (65 mg iron) tablet 325 mg PO DAILY vitamin 05/28/15 [History Last Taken 05/09/20] vitamin B complex 1 each PO DAILY vitamin 02/07/16 [History Last Taken 05/09/20] levothyroxine 50 mcg tablet 75 mcg PO DAILY thyroid 06/13/20 [History Last Taken Unknown] acetaminophen 500 mg tablet 1,000 mg (2 x 500 mg) PO Q6H PRN PRN Pain Score 1-5 #0 tabs 12/19/22 [Rx Last Taken Unknown] aspirin 81 mg tablet,delayed release 81 mg PO DAILY 04/14/23 [History Last Taken Unknown] atorvastatin 40 mg tablet (Lipitor) 40 mg PO DAILY cholesterol #90 tabs 04/14/23[Rx Last Taken Unknown] balsalazide 750 mg capsule (Colazal) 2,250 mg PO BID 04/14/23 [History Last Taken Unknown] hydralazine 50 mg tablet 50 mg PO BID 04/14/23 [History Last Taken Unknown] amiodarone 200 mg tablet See Rx Instructions .Route .COMPLEX #90 TABLETS 05/09/23 [Rx Last Taken Unknown] amlodipine 10 mg tablet 10 mg PO DAILY #90 tabs 05/20/23 [Rx Last Taken Unknown] carvedilol 3.125 mg tablet 3.125 mg PO BID heart #180 tabs 05/21/23 [Rx Last Taken Unknown] lisinopril 20 mg tablet 20 mg PO DAILY #90 tabs 05/21/23 [Rx Last Taken Unknown] ciprofloxacin HCl 750 mg tablet 750 mg PO BID 2 weeks #28 tabs 06/09/23 [Rx Last Taken Unknown] doxycycline hyclate 100 mg capsule 100 mg PO BID 2 weeks #28 caps 06/09/23 [Rx Last Taken Unknown] Allergy/AdvReac Type Severity Reaction Status Date / Time hydrochlorothiazide Allergy Severe Rash Verified 06/20/23 00:46 furosemide [From Lasix] Allergy Severe Verified 06/20/23 00:46 Rash Itchy lovastatin [From Mevacor] Allergy Rash Verified 06/20/23 00:46 Family History Father CAD (coronary artery disease) Mother Cancer breast Surgical History Aortocoronary bypass status (~02/12/17) History of cardiac catheterization History of hand surgery History of right inguinal hernia repair History of umbilical hernia repair History of vasectomy Hx of CABG Hx of colonoscopy Hx of esophagogastroduodenoscopy Hx of heart bypass surgery S/P right inguinal hernia repair S/P umbilical hernia repair, follow-up exam Status post insertion of drug-eluting stent into right coronary artery for coronary artery disease (~04/2009) Social History adopted: No household members: spouse housing: house number of children: 2 current occupational status: retired Smoking Status: Former smoker Tobacco: How many years used: 50 (stopped about 10 yrs ago) how long ago did patient quit smokin years ago alcohol intake: current alcohol intake frequency: 3 or more drinks per day Alcohol type: beer, wine and hard liquor substance use type: does not use caffeine: Yes Type: coffee Number of servings: 2 ROS ROS Narrative See HPI Physical Exam Const alert and oriented x3 Constitutional Narrative: Wet gurgly voice noted. Does improve with clearing of throat. Lying flat on myevaluation General Appearance: cooperative HEENT normocephalic; Negative for head/scalp atraumatic HEENT Narrative: Abrasion noted on right cheek Mouth: oral and palatal mucosa normal Eyes PERRL, EOMs intact bilaterally and no scleral icterus Eyes Narrative: Slight scleral injection noted Neck no lymphadenopathy, supple and no JVD Lymph Lymphatic: no lymphadenopathy noted and no lymphedema noted Resp Resp Narrative: Unable to listen posteriorly secondary to body position Auscultation: diminished lung sounds; Negative for rales, rhonchi or wheezes Cardio regular rhythm, S1 normal heart sound, S2 normal heart sound, no murmurs, no ruband no gallops Rate: bradycardia GI normal to inspection, nondistended, normoactive bowel sounds, soft to palpation and non-tender Extremity normal capillary refill and no clubbing, cyanosis or edema Extremity Narrative: Lower extremities wrapped General Extremity: no tenderness to palpation of joints or extremities Skin General Skin Exam: no breakdown Neuro CN's II-XII intact bilaterally, no focal motor deficits and no sensory deficits noted Psych thought process normal and cooperative Appearance: appropriate Medical Records Data Attestation: I reviewed the patient's medical records (See HPI) Lab / Micro Data Attestation: I reviewed the patient's lab results. 06/21/23 05:57 06/21/23 05:57 Labs: Laboratory Results - last 24 hr 06/21/23 05:57: B-Natriuretic Peptide 976.4 H ABG Data ABG results: ABG 06/21/23 10:34 Specimen Type ART Sample Site L Radial pH 7.38 Bicarbonate Actual 23.2 Total CO2 24 Base Excess -2 O2 Saturation 86 L O2 % 8.0 ABG pCO2 39.1 ABG pO2 52 L Britton Test Positive O2 Delivery Device HFNC Vent Mode Not entered Attestation: I personally reviewed and interpreted this ABG as follows: (Normal acid-base with increased AA gradient) Imagaing Radiology Impression Chest X-Ray 06/21/23 13:55 IMPRESSION: Small bilateral pleural effusions with bibasilar atelectasis. Cardiomegaly. Electronically Signed: Mayank Haddad MD at 14:49 EST , Charges/Coding Visit Charges Inpatient E&M: 46314 Init Hosp L3 06/22/23 0849 <Electronically signed by William Dawson MD> Cosigner Signature (if applicable): CC: TESSA Menendez; Dr. Rosa Maria Santacruz MD; Dr. William Dawson MD; Dr. Robby Lai DO; Dr. Lakshmi Carpenter MD; Dr. Kvng James MD; Dr. Daniel Jimenez MD; Dr. Oniel Moulton MD; Dr. Rufus Bruner MD~ Signed [facility] Work Phone: 1(278) 873-979112-23-2023 Progress note [facility] June 21, 2023 2:15pm Note Date/Time June 21, 2023 10:38am [facility] Medical Records Department [address] [place] [address] Progress Note 06/21/23 1035 MR#: [id number] Acct: [id number] Name: AMAURY BLANK Rep #:[id number] : 1940 82 From: Priya Sheehan MD PCP: Dr. Rosa Maria Santacruz MD Status:ADM IN Location: [place] [address] Subjective Subjective Patient seen and examined. He was coughing frequently when I reviewed him and said he had choked on his food. He felt short of breath from the choking. He denied any fever, chills, palpitations, dizziness or any other symptoms. He denies choking at home when eating, and feels he just choked on his food. His oxygen had to be bumped up to 8L afterwards. Objective Data Objective Data Vital Signs: Vital Signs Temp Pulse Resp BP Pulse Ox O2 Del Method O2 Flow Rate 98 F 66 18 134/57 H 93 High Flow 8 06/21/23 10:10 06/21/23 10:10 06/21/23 10:10 06/21/23 10:10 06/21/23 10:19 06/21/23 10:19 06/21/23 10:19 Oxygen Flow Rate (L/min) 8 Oxygen Delivery Method High Flow Weight: 187 lb 9.814 oz Body Mass Index (BMI) 26.9 Intake & Output: Intake and Output for Last 24 Hours 06/19/23 06/20/23 06/21/23 23:59 23:59 23:59 Intake Total 2518.33 / 2538.33 871.67 / 871.67 Output Total 400 / 400 400 / 400 Balance 2118.33 / 2138.33 471.67 / 471.67 Lab / Micro Data 06/21/23 05:57 06/21/23 05:57 Labs: Laboratory Results - last 24 hr 06/20/23 01:18: Diff Path Review Reviewed 06/20/23 07:25: Total Bilirubin 0.40, Direct Bilirubin 0.14, AST 37, ALT 14 L, Alkaline Phosphatase 108, Total Protein 5.5 L, Albumin 3.0 L, Globulin 2.5 06/20/23 13:45: Potassium 5.7 H, Total Creatine Kinase 53 06/21/23 05:57: WBC 4.1 L, RBC 2.03 L, Hgb 7.1 L, Hct 23.2 L, MCV 114.3 H, MCH 35.0 H, MCHC 30.6 L, RDW Std Deviation 80.1 H, RDW Coeff of Chanel 19.0 H, Plt Count 89 L, MPV 10.5, Immature Gran % (Auto) 0.700, Neut % (Auto) 75.7 H, Lymph % (Auto) 12.9 L, Kendall % (Auto) 9.5, Eos % (Auto) 1.0, Baso % (Auto) 0.2, Absolute Neuts (auto) 3.1, Absolute Lymphs (auto) 0.53 L, Nucleated RBC % 0, DifferentialComment SCANNED, Diff Path Review October, Immature Plt Fraction 3.7, Anisocytosis 2+, Microcytosis 1+, Macrocytosis 2+, Ovalocytes RARE, Retic Count 2.81 H, Immature Retic Fraction 11.10, Retic Hgb Equivalent 29.7 L, Sodium 145, Potassium 5.4 H, Chloride 117 H, Carbon Dioxide 23.0, Anion Gap 5, BUN 52 H, Creatinine 2.43 H, Estim Creat Clear Calc 24.62, Est GFR (MDRD) Af Amer 33 L, Est GFR (MDRD) Non-Af 27 L, BUN/Creatinine Ratio 21.4 H, Glucose 95, Calcium 8.0L, Phosphorus 4.0, Albumin 2.7 L, TSH 1.61, Free T4 1.17 Physical Exam Const alert and oriented x3 Constitutional Narrative: in moderate distress due to cough and choking. General Appearance: cooperative HEENT normocephalic and head/scalp atraumatic Mouth: dry mucous membranes Eyes PERRL and EOMs intact bilaterally Neck no lymphadenopathy, supple and no JVD Lymph Lymphatic: no lymphadenopathy noted and no lymphedema noted Resp Resp Narrative: moderately diminished breath sounds bibasally; bilateral crackles. On 8L of oxygen by nasal canula Cardio regular rate, regular rhythm, S1 normal heart sound, S2 normal heart sound and no murmurs GI normal to inspection, nondistended, normoactive bowel sounds, soft to palpation and non-tender Extremity normal capillary refill and no clubbing, cyanosis or edema General Extremity: no tenderness to palpation of joints or extremities Skin General Skin Exam: no breakdown Neuro CN's II-XII intact bilaterally, no focal motor deficits, no sensory deficits noted and deep tendon reflexes 2+ bilaterally Motor Exam: strength 5/5 throughout and general weakness Psych thought process normal and cooperative Appearance: appropriate Assessment & Plan Assessment/Plan (1) General weakness: (2) Debility: (3) Acute respiratory failure with hypoxia: (4) Aspiration pneumonia: PLAN: Plan #Acute hypoxic respiratory failure due to probable aspiration pneumonia * patient noted to be choking on his food today. * required oxygen up to 8L * keep NPO now. * CXR ordered. CXR ordered yesterday showed mild cardiomegaly with blunting of both costophrenic angles and the atelectasis and/or infiltrate at the left lung base. Patient not on antibiotics * start on zosyn due to concern for aspiration. CXR ordered. * titrate oxygen to maintain sats >90% * speech therapy consult. * consult pulmonology if shortness of breath doesnt improve * #Sinus bradycardia * had first degree AV block also. troponins were negative * carvedilol adn amiodarone on hold * cardiology on board * has known EF of 60%, with RVSP of severe pulmonary hypertension. * carvedilol and amiodarone on hold. * #CAD s/p CABG and stents; on aspirin and high intensity statin. Beta anna on hold. #CKD IV with hyperkalemia: potassium is 5.4. Will give kayexalate. nephrology onboard. on bicarb drip. hold all nephrotoxic meds. Cr today is 2.43 #Pancytopenia: wbc today is 4.1, with hb of 7.1 and platelets of 89. baseline Hbis ~ 8-9. Will repeat Hb and transfuse if Hb <7. #Ulcerative colitis: on colazal #Hypothyroidism: on synthroid #Hyperlipidemia: on statin #Debility due to frequent falls: PT/OT on board. Fall precautions #History of COPD and emphysema: on had pneumothorax in August 2020 and was sen [facility] for CT evaluation. Had VATS. DVT prophylaxis; SCDs Charges/Coding Visit Charges Inpatient E&M: 63437 [facility] Hosp L3 06/21/23 0738 <Electronically signed by Priya Sheehan MD> Priya Sheehan MD Cosigner Signature (if applicable): CC: ~ Signed [facility] Work Phone: 1(641) 482-783412-22-2023 Consult note Author Lakshmi Carpenter [facility] June 20, 2023 3:53pm Note Date/Time June 20, 2023 2:34pm [facility] Medical Records Department [address] [place] [address] Consultation - Cardiology 06/20/23 1421 MR#: [id number] Acct: [id number] Name: AMAURY BLANK Rep #:[id number] : 1940 82 From: Lakshmi Carpenter MD PCP: Dr. Rosa Maria Santacruz MD Status:ADM IN Location: [place] [address] <Statement entered by Lakshmi Carpenter MD - 06/20/23 15:53> Pt seen & evaluated w/LIBERTAD. I personally interviewed & exam the pt. I was involved in all aspects of pt's orders, interpretation of results & treatment Assessment & Plan Assessment/Plan (1) Severe sinus bradycardia: (2) Hypertension: (3) Hyperlipidemia: (4) Atherosclerotic heart disease of [place] coronary artery without angina pectoris: QUALIFIERS: [place] vs. transplanted heart: [place] heart QualifiedCode(s): I25.10 - Atherosclerotic heart disease of [place] coronary artery without angina pectoris (5) Subclavian artery stenosis, left: (6) Atrial fibrillation: QUALIFIERS: Atrial fibrillation type: paroxysmal Qualified Code(s): I48.0 - Paroxysmal atrial fibrillation PLAN: Plan * With his bradycardiac recommend holding his BB and his amiodarone. Recommend that he have an event monitor on OP basis. * Bp is controlled on current medications. * Will follow up on OP. HPI Consult Data Date of Consult: 06/20/23 HPI Narrative HPI Narrative: AMAURY BLANK, is a 82 M who presented to [facility] ER for increase in palpitations. He was noted to be hyperkalemic. During his hospital stay he was noted to be bradycardiac. His amiodarone and metoprolol has been held. He was last in the office 12/2022, He has a history of coronary artery disease status post drug-eluting stent to proximal/mid RCA April 2009, CABG x2 with ZARAGOZA to LAD and aorta to posterior descending coronary artery to reverseSVG in January 2017, paroxysmal atrial fibrillation/flutter, bilateral carotid artery disease, hypertension, and hyperlipidemia. He underwent a cardioversion on 05/09/2020. He underwent ROSI cardioversion during his hospitalization at [facility] September 2020. In August of 2020, patient was evaluated at [facility] emergency department in August 2020 for worsening shortness of breath. He was transferred to [facility] with CT surgery evaluation. He underwent VATS procedure for empyema. He was evaluated at [facility] in September 2020 for palpitations. His chest x-ray showed pneumothorax. Due to recent VATS procedure he was transferred to [facility]. He was evaluated to [facility] in October 2020 for syncope. He wastreated for acute GI losses secondary to acute sepsis secondary to acute C. difficile colitis. He was transitioned to TCU. He was evaluated by manager pediatric and Xarelto therapy was discontinued on account of anemia requiring packed red blood cell transfusion in April 2021. He was seen by oncologist, Dr. Mcintyre, and Protonix was discontinued. His hemoglobin slowly improved. He had presented to the emergency room in December of this year after a fall. He was noted to have a brain bleed, and hip fracture. He has not had any recent cardiac symptoms expect for his frequent falls [facility] Medical History Alcohol use Atherosclerotic heart disease of [place] coronary artery without angina pectoris Atrial fibrillation and flutter Cardiology follow-up encounter Carotid artery stenosis Dietary restriction Elevated troponin Emphysema of lung Essential hypertension Fever Former smoker Hematemesis/vomiting blood High cholesterol History of atrial fibrillation History of cardioversion (~05/09/20) History of coronary artery disease History of echocardiogram History of edema History of GI bleed History of right inguinal hernia History of stress test History of transesophageal echocardiography (ROSI) History of umbilical hernia Hx of ulcerative colitis Hypercholesterolemia Hyperlipidemia Hypertension Injury of head and neck 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 Mitral valve insufficiency PAD (peripheral artery disease) Premature atrial contractions Right carotid bruit Subclavian artery stenosis, left (~10/15/19) Thrombocytopenia Thrombocytopenia Thyroid disease Ulcerative colitis Upper GI bleed Upper GI bleed Walker as ambulation aid Wears glasses Wears hearing aid Home Medications ferrous sulfate 325 mg (65 mg iron) tablet 325 mg PO DAILY vitamin 05/28/15 [History Last Taken 05/09/20] vitamin B complex 1 each PO DAILY vitamin 02/07/16 [History Last Taken 05/09/20] levothyroxine 50 mcg tablet 75 mcg PO DAILY thyroid 06/13/20 [History Last Taken Unknown] acetaminophen 500 mg tablet 1,000 mg (2 x 500 mg) PO Q6H PRN PRN Pain Score 1-5 #0 tabs 12/19/22 [Rx Last Taken Unknown] aspirin 81 mg tablet,delayed release 81 mg PO DAILY 04/14/23 [History Last Taken Unknown] atorvastatin 40 mg tablet (Lipitor) 40 mg PO DAILY cholesterol #90 tabs 04/14/23[Rx Last Taken Unknown] balsalazide 750 mg capsule (Colazal) 2,250 mg PO BID 04/14/23 [History Last Taken Unknown] hydralazine 50 mg tablet 50 mg PO BID 04/14/23 [History Last Taken Unknown] amiodarone 200 mg tablet See Rx Instructions .Route .COMPLEX #90 TABLETS 05/09/23 [Rx Last Taken Unknown] amlodipine 10 mg tablet 10 mg PO DAILY #90 tabs 05/20/23 [Rx Last Taken Unknown] carvedilol 3.125 mg tablet 3.125 mg PO BID heart #180 tabs 05/21/23 [Rx Last Taken Unknown] lisinopril 20 mg tablet 20 mg PO DAILY #90 tabs 05/21/23 [Rx Last Taken Unknown] ciprofloxacin HCl 750 mg tablet 750 mg PO BID 2 weeks #28 tabs 06/09/23 [Rx Last Taken Unknown] doxycycline hyclate 100 mg capsule 100 mg PO BID 2 weeks #28 caps 06/09/23 [Rx Last Taken Unknown] Allergy/AdvReac Type Severity Reaction Status Date / Time hydrochlorothiazide Allergy Severe Rash Verified 06/20/23 00:46 furosemide [From Lasix] Allergy Severe Verified 06/20/23 00:46 Rash Itchy lovastatin [From Mevacor] Allergy Rash Verified 06/20/23 00:46 Family History Father CAD (coronary artery disease) Mother Cancer breast Surgical History Aortocoronary bypass status (~02/12/17) History of cardiac catheterization History of hand surgery History of right inguinal hernia repair History of umbilical hernia repair History of vasectomy Hx of CABG Hx of colonoscopy Hx of esophagogastroduodenoscopy Hx of heart bypass surgery S/P right inguinal hernia repair S/P umbilical hernia repair, follow-up exam Status post insertion of drug-eluting stent into right coronary artery for coronary artery disease (~04/2009) Social History adopted: No household members: spouse housing: house number of children: 2 current occupational status: retired Smoking Status: Former smoker Tobacco: How many years used: 50 (stopped about 10 yrs ago) how long ago did patient quit smokin years ago alcohol intake: current alcohol intake frequency: 3 or more drinks per day Alcohol type: beer, wine and hard liquor substance use type: does not use caffeine: Yes Type: coffee Number of servings: 2 ROS ROS Narrative As in HPI and past medical history Physical Exam Const alert, oriented x3 and no apparent distress HEENT normocephalic, head/scalp atraumatic, hearing grossly normal bilaterally, external ears normal, external nose normal and moist oral mucous membranes Eyes PERRL, EOMs intact bilaterally, conjunctivae normal and no scleral icterus Neck no lymphadenopathy, supple and no JVD Resp normal respiratory effort, no use of accessory muscles and clear to auscultationbilaterally Cardio regular rate, regular rhythm, S1 normal heart sound, S2 normal heart sound, no rub, no gallops, no clicks, no JVD and peripheral pulses 2+ throughout Heart Sounds: murmur systolic II/ soft GI normal to inspection, nondistended, normoactive bowel sounds, soft to palpation,non-tender and non-distended Extremity normal to inspection, normal capillary refill, no clubbing, cyanosis or edema and no pedal edema Neuro oriented x3, CN's II-XII intact bilaterally, moves all extremities and no focal motor deficits Psych cooperative and affect normal Risk Stratification Risk Stratification Applicable: No Charges/Coding Visit Charges Office Visits / Consults: [id number] IP Consult L3 Objective Data Vital Signs: Vital Signs Temp Pulse Resp BP Pulse Ox O2 Del Method O2 Flow Rate 98.6 F 47 L 12 130/79 H 96 Nasal Cannula 2 06/20/23 08:26 06/20/23 08:26 06/20/23 08:26 06/20/23 08:26 06/20/23 09:00 06/20/23 09:00 06/20/23 09:00 Oxygen Flow Rate (L/min) 2 Oxygen Delivery Method Nasal Cannula Weight: 187 lb 9.814 oz Body Mass Index (BMI) 26.9 Intake & Output: Intake and Output for Last 24 Hours 06/18/23 06/19/23 06/20/23 23:59 23:59 23:59 Intake Total 1400 / 1400 Balance 1400 / 1400 Lab / Micro Data 06/20/23 01:18 06/20/23 13:45 Labs: Laboratory Results - last 24 hr 06/20/23 01:18: WBC 3.7 L, RBC 2.24 L, Hgb 7.8 L, Hct 25.3 L, MCV 112.9 H, MCH 34.8 H, MCHC 30.8 L, RDW Std Deviation 81.2 H, RDW Coeff of Chanel 19.5 H, Plt Count 97 L, MPV 10.7, Immature Gran % (Auto) 0.300, Neut % (Auto) 73.4 H, Lymph % (Auto) 13.3 L, Kendall % (Auto) 10.9 H, Eos % (Auto) 1.6, Baso % (Auto) 0.5, Absolute Neuts (auto) 2.7, Absolute Lymphs (auto) 0.49 L, Nucleated RBC % 0, Differential Comment SCANNED, Diff Path Review Reviewed, Platelet Estimate MOD DEC, Anisocytosis 2+, Sodium 145, Potassium 5.7 H, Chloride 119 H, Carbon Dioxide 21.0, Anion Gap 5, BUN 47 H, Creatinine 2.50 H, Estim Creat Clear Calc 23.93, Est GFR (MDRD) Af Amer 32 L, Est GFR (MDRD) Non-Af 26 L, BUN/Creatinine Ratio 18.8, Glucose 84, Calcium 8.9, Troponin I High Sens 44 06/20/23 05:37: POC Glucose 40 L* 06/20/23 06:04: POC Glucose 135 H 06/20/23 07:25: Sodium 143, Potassium 6.0 H*, Chloride 119 H, Carbon Dioxide 22.0, Anion Gap 2 L, BUN 51 H, Creatinine 2.59 H, Estim Creat Clear Calc 23.10, Est GFR (MDRD) Af Amer 31 L, Est GFR (MDRD) Non-Af 25 L, BUN/Creatinine Ratio 19.7, Glucose 113 H, Calcium 9.3, Phosphorus 3.8, Magnesium 2.0, Total Bilirubin0.40, Direct Bilirubin 0.14, AST 37, ALT 14 L, Alkaline Phosphatase 108, Troponin I High Sens 71, Total Protein 5.5 L, Albumin 3.0 L, Globulin 2.5 06/20/23 08:55: POC Glucose 150 H 06/20/23 13:45: Potassium 5.7 H, Total Creatine Kinase 53 Cardiology Labs/Tests 06/20/23 01:18: WBC 3.7 L, RBC 2.24 L, Hgb 7.8 L, Hct 25.3 L, MCV 112.9 H, MCH 34.8 H, MCHC 30.8 L, Plt Count 97 L, MPV 10.7, Immature Gran % (Auto) 0.300, Neut % (Auto) 73.4 H, Lymph % (Auto) 13.3 L, Kendall % (Auto) 10.9 H, Eos % (Auto) 1.6, Baso % (Auto) 0.5, Absolute Neuts (auto) 2.7, Nucleated RBC % 0, Sodium 145, Potassium 5.7 H, Chloride 119 H, Carbon Dioxide 21.0, Anion Gap 5, BUN 47 H, Creatinine 2.50 H, Est GFR (MDRD) Af Amer 32 L, Est GFR (MDRD) Non-Af 26 L, BUN/Creatinine Ratio 18.8, Glucose 84, Calcium 8.9 06/20/23 07:25: Sodium 143, Potassium 6.0 H*, Chloride 119 H, Carbon Dioxide 22.0, Anion Gap 2 L, BUN 51 H, Creatinine 2.59 H, Est GFR (MDRD) Af Amer 31 L, Est GFR (MDRD) Non-Af 25 L, BUN/Creatinine Ratio 19.7, Glucose 113 H, Calcium 9.3, Phosphorus 3.8, Magnesium 2.0, Total Bilirubin 0.40, Direct Bilirubin 0.14 06/20/23 13:45: Potassium 5.7 H Radiography Diagnostic Testing: Radiology Impression Chest X-Ray 06/20/23 01:20 IMPRESSION: Nonspecific mediastinal left lower lung retrocardiac opacity which could represent atelectasis or airspace disease or overlapping shadows. Consider PA and lateral chest radiograph. Cardiomegaly with mild interstitial edema and small right effusion. Trace left effusion. Atelectasis or fluid along the right minor fissure. Electronically Signed: Jus Benson MD at 1:51 EST , Chest X-Ray 06/20/23 08:00 IMPRESSION: Mild cardiomegaly with blunting of both costophrenic angles and the atelectasis and/or early infiltrate at the left lung base. Electronically Signed: Apolinar Rosen MD at 8:16 EST , 06/20/23 1553 <Electronically signed by Lakshmi Carpenter MD> Cosigner Signature (if applicable): 06/20/23 1436 <Electronically signed by Teresa Pop CA PA> CC: Dr. Rosa Maria Santacruz MD; Dr. Lakshmi Carpenter MD; Dr. Kvng James MD~ Signed [facility] Work Phone: 1(380) 243-294612-22-2023 Consult note Author Kvng James [facility] June 20, 2023 3:29pm Note Date/Time June 20, 2023 10:26am [facility] Medical Records Department [address] [place] [address] Consultation - Nephrology 06/20/23 1001 MR#: [id number] Acct: [id number] Name: AMAURY BLANK Rep #:[id number] : 1940 82 From: Jackie deshpande ENTERPRISE MANAGER-C PCP: Dr. Rosa Maria Santacruz MD Status:ADM IN Location: [facility] [facility] [id number] Documented by User: TESSA Nava 06/20/23 10:26 Assessment & Plan Assessment/Plan (1) Hyperkalemia: (2) Palpitations: (3) CKD (chronic kidney disease) stage 3, GFR 30-59 ml/min: PLAN: Plan This is an 82-year-old male with past medical history significant for coronary artery disease status post CABG x 2, history of drug-eluting stents, A-fib requiring cardioversion, history of mesenteric artery stenosis followed by Dr. Khanna, had renal Dopplers in past which did not show any renal artery stenosis,CKD stage III/IV, history of peripheral vascular disease and chronic lower extremity wounds recently seen by Dr. Lim who was brought to the emergency room via squad early this morning as patient noted palpitations at home. Initial EKG in the emergency room showed sinus rhythm with first-degree AV blockwith heart rate of 60. Follow-up EKG showed sinus bradycardia with first-degreeAV block, heart rate in the 40s. Patient was admitted for further evaluation and treatment. Nephrology consulted as patient has history of CKD stage III/IV. Baseline serum creatinine has been ranging around 2 to 2.4 mg/dL, baseline eGFR~29-32ml/min. Currently renal function appears to be stable at baseline upon admission, his creatinine is 2.5. Patient did have lab work on 04/16/2023 creatinine 2.82. Patient is noted to be hyperkalemic. Initial potassium in theemergency room was 5.7, he received calcium gluconate, dextrose and insulin as well as aerosol treatment. Repeat potassium 6.0 at 730 this morning and patientordered bicarb, D50 and calcium gluconate again. He is also been ordered Kayexalate, 45gms. We will repeat potassium later today. Recommend holding lisinopril. Recommend renal diet restrictions. Patient was noted to be hypotensive in the emergency room and did receive fluid bolus challenge, blood pressures have improved. Patient bradycardic with heart rate 40s to 50s, cardiology has been consulted, beta-anna and amiodarone currently on hold. Overall renal function is stable, near baseline. Reviewed chest x-ray from the emergency room which showed mild cardiomegaly with blunting of both costophrenicangles, possible early infiltrate left lung base. Patient does appear to be neareuvolemic, there is no acidemia, no acute indication for JAVA J2EE ARCHITECT at this time. UA pending. Will check CPK as patient recently had some falls at home. Labs ordered for later today as well as morning. Discussed nephrology plan with Dr. Moulton. Further orders forthcoming as hospitalization evolves, thank you for allowing us to participate in the care of Mr. Blank. HPI Consult Data Date of Consult: 06/20/23 HPI Narrative HPI Narrative: AMAURY BLANK, is a 82 M with past medical history significant for coronary artery disease status post CABG x 2, history of drug-eluting stents, A-fib requiring cardioversion, history of mesenteric artery stenosis followed by Dr. Khanna, had renal Dopplers in past which did not show any renal artery stenosis,CKD stage III/IV who was brought to the emergency room via EMS early this morning as patient reports earlier this morning he noted his heart to be beatingfast, feeling weak therefore summoned EMS and brought to ER for further evaluation and treatment. Patient had lab work drawn in the emergency room found to have potassium of 5.7 130 this morning, repeat potassium 6.0 at 730 this morning. Nephrology consulted as patient has history of CKD and also for hyperkalemia. Patient reports he had been feeling weak over the last few weeks or so. He was recently started on antibiotics for lower extremity ulcers which seems to be Cipro and Doxy. Patient denies any urinary habitus changes including hematuria dysuria or noting decrease in urine output. He denies any worsening lower extremity edema. Denies any nausea or vomiting. [facility] Medical History Alcohol use Atherosclerotic heart disease of [place] coronary artery without angina pectoris Atrial fibrillation and flutter Cardiology follow-up encounter Carotid artery stenosis Dietary restriction Elevated troponin Emphysema of lung Essential hypertension Fever Former smoker Hematemesis/vomiting blood High cholesterol History of atrial fibrillation History of cardioversion (~05/09/20) History of coronary artery disease History of echocardiogram History of edema History of GI bleed History of right inguinal hernia History of stress test History of transesophageal echocardiography (ROSI) History of umbilical hernia Hx of ulcerative colitis Hypercholesterolemia Hyperlipidemia Hypertension Injury of head and neck 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 Mitral valve insufficiency PAD (peripheral artery disease) Premature atrial contractions Right carotid bruit Subclavian artery stenosis, left (~10/15/19) Thrombocytopenia Thrombocytopenia Thyroid disease Ulcerative colitis Upper GI bleed Upper GI bleed Walker as ambulation aid Wears glasses Wears hearing aid Home Medications ferrous sulfate 325 mg (65 mg iron) tablet 325 mg PO DAILY vitamin 05/28/15 [History Last Taken 05/09/20] vitamin B complex 1 each PO DAILY vitamin 02/07/16 [History Last Taken 05/09/20] levothyroxine 50 mcg tablet 75 mcg PO DAILY thyroid 06/13/20 [History Last Taken Unknown] acetaminophen 500 mg tablet 1,000 mg (2 x 500 mg) PO Q6H PRN PRN Pain Score 1-5 #0 tabs 12/19/22 [Rx Last Taken Unknown] aspirin 81 mg tablet,delayed release 81 mg PO DAILY 04/14/23 [History Last Taken Unknown] atorvastatin 40 mg tablet (Lipitor) 40 mg PO DAILY cholesterol #90 tabs 04/14/23[Rx Last Taken Unknown] balsalazide 750 mg capsule (Colazal) 2,250 mg PO BID 04/14/23 [History Last Taken Unknown] hydralazine 50 mg tablet 50 mg PO BID 04/14/23 [History Last Taken Unknown] amiodarone 200 mg tablet See Rx Instructions .Route .COMPLEX #90 TABLETS 05/09/23 [Rx Last Taken Unknown] amlodipine 10 mg tablet 10 mg PO DAILY #90 tabs 05/20/23 [Rx Last Taken Unknown] carvedilol 3.125 mg tablet 3.125 mg PO BID heart #180 tabs 05/21/23 [Rx Last Taken Unknown] lisinopril 20 mg tablet 20 mg PO DAILY #90 tabs 05/21/23 [Rx Last Taken Unknown] ciprofloxacin HCl 750 mg tablet 750 mg PO BID 2 weeks #28 tabs 06/09/23 [Rx Last Taken Unknown] doxycycline hyclate 100 mg capsule 100 mg PO BID 2 weeks #28 caps 06/09/23 [Rx Last Taken Unknown] Allergy/AdvReac Type Severity Reaction Status Date / Time hydrochlorothiazide Allergy Severe Rash Verified 06/20/23 00:46 furosemide [From Lasix] Allergy Severe Verified 06/20/23 00:46 Rash Itchy lovastatin [From Mevacor] Allergy Rash Verified 06/20/23 00:46 Family History Father CAD (coronary artery disease) Mother Cancer breast Surgical History Aortocoronary bypass status (~02/12/17) History of cardiac catheterization History of hand surgery History of right inguinal hernia repair History of umbilical hernia repair History of vasectomy Hx of CABG Hx of colonoscopy Hx of esophagogastroduodenoscopy Hx of heart bypass surgery S/P right inguinal hernia repair S/P umbilical hernia repair, follow-up exam Status post insertion of drug-eluting stent into right coronary artery for coronary artery disease (~04/2009) Social History adopted: No household members: spouse housing: house number of children: 2 current occupational status: retired Smoking Status: Former smoker Tobacco: How many years used: 50 (stopped about 10 yrs ago) how long ago did patient quit smokin years ago alcohol intake: current alcohol intake frequency: 3 or more drinks per day Alcohol type: beer, wine and hard liquor substance use type: does not use caffeine: Yes Type: coffee Number of servings: 2 ROS ROS Narrative As in HPI and past medical history Physical Exam Narrative Alert and orient x 3, no apparent distress S1, S2, rhythm irregular rate controlled Lung sounds clear anteriorly and posteriorly. No wheezes, rhonchi rales Abdomen soft, nontender Dressings intact to bilateral legs from feet to knees. No pitting edema to bilateral thighs. Trace edema bilateral lower legs Lab / Micro Data 06/20/23 01:18 06/20/23 13:45 Labs: Laboratory Results - last 24 hr 06/20/23 01:18: WBC 3.7 L, RBC 2.24 L, Hgb 7.8 L, Hct 25.3 L, MCV 112.9 H, MCH 34.8 H, MCHC 30.8 L, RDW Std Deviation 81.2 H, RDW Coeff of Chanel 19.5 H, Plt Count 97 L, MPV 10.7, Immature Gran % (Auto) 0.300, Neut % (Auto) 73.4 H, Lymph % (Auto) 13.3 L, Kendall % (Auto) 10.9 H, Eos % (Auto) 1.6, Baso % (Auto) 0.5, Absolute Neuts (auto) 2.7, Absolute Lymphs (auto) 0.49 L, Nucleated RBC % 0, Differential Comment SCANNED, Diff Path Review May foll, Platelet Estimate MOD DEC, Anisocytosis 2+, Sodium 145, Potassium 5.7 H, Chloride 119 H, Carbon Dioxide 21.0, Anion Gap 5, BUN 47 H, Creatinine 2.50 H, Estim Creat Clear Calc 23.93, Est GFR (MDRD) Af Amer 32 L, Est GFR (MDRD) Non-Af 26 L, BUN/Creatinine Ratio 18.8, Glucose 84, Calcium 8.9, Troponin I High Sens 44 06/20/23 05:37: POC Glucose 40 L* 06/20/23 06:04: POC Glucose 135 H 06/20/23 07:25: Sodium 143, Potassium 6.0 H*, Chloride 119 H, Carbon Dioxide 22.0, Anion Gap 2 L, BUN 51 H, Creatinine 2.59 H, Estim Creat Clear Calc 23.10, Est GFR (MDRD) Af Amer 31 L, Est GFR (MDRD) Non-Af 25 L, BUN/Creatinine Ratio 19.7, Glucose 113 H, Calcium 9.3, Phosphorus 3.8, Magnesium 2.0, Troponin I HighSens 71 06/20/23 08:55: POC Glucose 150 H Imagaing Radiology Impression Chest X-Ray 06/20/23 01:20 IMPRESSION: Nonspecific mediastinal left lower lung retrocardiac opacity which could represent atelectasis or airspace disease or overlapping shadows. Consider PA and lateral chest radiograph. Cardiomegaly with mild interstitial edema and small right effusion. Trace left effusion. Atelectasis or fluid along the right minor fissure. Electronically Signed: Jus Benson MD at 1:51 EST Reading Location ID and State: [facility] / [place] Tel , Service support , Chest X-Ray 06/20/23 08:00 IMPRESSION: Mild cardiomegaly with blunting of both costophrenic angles and the atelectasis and/or early infiltrate at the left lung base. Electronically Signed: Apolinar Rosen MD at 8:16 EST , Documented by User: Dr. Kvng James MD 06/20/23 15:29 Assessment & Plan Assessment/Plan (1) Hyperkalemia: (2) Palpitations: (3) CKD (chronic kidney disease) stage 3, GFR 30-59 ml/min: PLAN: Plan This is an 82-year-old male with past medical history significant for coronary artery disease status post CABG x 2, history of drug-eluting stents, A-fib requiring cardioversion, history of mesenteric artery stenosis followed by Dr. Khanna, had renal Dopplers in past which did not show any renal artery stenosis,CKD stage III/IV, history of peripheral vascular disease and chronic lower extremity wounds recently seen by Dr. Lim who was brought to the emergency room via squad early this morning as patient noted palpitations at home. Initial EKG in the emergency room showed sinus rhythm with first-degree AV blockwith heart rate of 60. Follow-up EKG showed sinus bradycardia with first-degreeAV block, heart rate in the 40s. Patient was admitted for further evaluation and treatment. Nephrology consulted as patient has history of CKD stage III/IV. Baseline serum creatinine has been ranging around 2 to 2.4 mg/dL, baseline eGFR~29-32ml/min. Currently renal function appears to be stable at baseline upon admission, his creatinine is 2.5. Patient did have lab work on 04/16/2023 creatinine 2.82. Patient is noted to be hyperkalemic. Initial potassium in theemergency room was 5.7, he received calcium gluconate, dextrose and insulin as well as aerosol treatment. Repeat potassium 6.0 at 730 this morning and patientordered bicarb, D50 and calcium gluconate again. He is also been ordered Kayexalate, 45gms. We will repeat potassium later today. Recommend holding lisinopril. Recommend renal diet restrictions. Patient was noted to be hypotensive in the emergency room and did receive fluid bolus challenge, blood pressures have improved. Patient bradycardic with heart rate 40s to 50s, cardiology has been consulted, beta-anna and amiodarone currently on hold. Overall renal function is stable, near baseline. Reviewed chest x-ray from the emergency room which showed mild cardiomegaly with blunting of both costophrenicangles, possible early infiltrate left lung base. Patient does appear to be neareuvolemic, there is no acidemia, no acute indication for JAVA J2EE ARCHITECT at this time. UA pending. Will check CPK as patient recently had some falls at home. Labs ordered for later today as well as morning. Discussed nephrology plan with Dr. Moulton. Further orders forthcoming as hospitalization evolves, thank you for allowing us to participate in the care of Mr. Blank. Patient was seen and examined independently. CKD stage IIIb. Previous baseline creatinine was around 2.0-2.1. Currently around 2.5. Hyperkalemia. Preadmission he was on lisinopril. He has received Kayexalate, had a big bowel movement just now. Repeat potassiumbetter at 5.7 this was before his bowel movement. Previous echo reviewed. Chest x-ray is not correct. I will decrease the rate of fluid but continue bicarbonate drip for today Will check postvoid bladder scan HPI Consult Data Date of Consult: 06/20/23 [facility] Medical History Alcohol use Atherosclerotic heart disease of [place] coronary artery without angina pectoris Atrial fibrillation and flutter Cardiology follow-up encounter Carotid artery stenosis Dietary restriction Elevated troponin Emphysema of lung Essential hypertension Fever Former smoker Hematemesis/vomiting blood High cholesterol History of atrial fibrillation History of cardioversion (~05/09/20) History of coronary artery disease History of echocardiogram History of edema History of GI bleed History of right inguinal hernia History of stress test History of transesophageal echocardiography (ROSI) History of umbilical hernia Hx of ulcerative colitis Hypercholesterolemia Hyperlipidemia Hypertension Injury of head and neck 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 Mitral valve insufficiency PAD (peripheral artery disease) Premature atrial contractions Right carotid bruit Subclavian artery stenosis, left (~10/15/19) Thrombocytopenia Thrombocytopenia Thyroid disease Ulcerative colitis Upper GI bleed Upper GI bleed Walker as ambulation aid Wears glasses Wears hearing aid Home Medications ferrous sulfate 325 mg (65 mg iron) tablet 325 mg PO DAILY vitamin 05/28/15 [History Last Taken 05/09/20] vitamin B complex 1 each PO DAILY vitamin 02/07/16 [History Last Taken 05/09/20] levothyroxine 50 mcg tablet 75 mcg PO DAILY thyroid 06/13/20 [History Last Taken Unknown] acetaminophen 500 mg tablet 1,000 mg (2 x 500 mg) PO Q6H PRN PRN Pain Score 1-5 #0 tabs 12/19/22 [Rx Last Taken Unknown] aspirin 81 mg tablet,delayed release 81 mg PO DAILY 04/14/23 [History Last Taken Unknown] atorvastatin 40 mg tablet (Lipitor) 40 mg PO DAILY cholesterol #90 tabs 04/14/23[Rx Last Taken Unknown] balsalazide 750 mg capsule (Colazal) 2,250 mg PO BID 04/14/23 [History Last Taken Unknown] hydralazine 50 mg tablet 50 mg PO BID 04/14/23 [History Last Taken Unknown] amiodarone 200 mg tablet See Rx Instructions .Route .COMPLEX #90 TABLETS 05/09/23 [Rx Last Taken Unknown] amlodipine 10 mg tablet 10 mg PO DAILY #90 tabs 05/20/23 [Rx Last Taken Unknown] carvedilol 3.125 mg tablet 3.125 mg PO BID heart #180 tabs 05/21/23 [Rx Last Taken Unknown] lisinopril 20 mg tablet 20 mg PO DAILY #90 tabs 05/21/23 [Rx Last Taken Unknown] ciprofloxacin HCl 750 mg tablet 750 mg PO BID 2 weeks #28 tabs 06/09/23 [Rx Last Taken Unknown] doxycycline hyclate 100 mg capsule 100 mg PO BID 2 weeks #28 caps 06/09/23 [Rx Last Taken Unknown] Allergy/AdvReac Type Severity Reaction Status Date / Time hydrochlorothiazide Allergy Severe Rash Verified 06/20/23 00:46 furosemide [From Lasix] Allergy Severe Verified 06/20/23 00:46 Rash Itchy lovastatin [From Mevacor] Allergy Rash Verified 06/20/23 00:46 Family History Father CAD (coronary artery disease) Mother Cancer breast Surgical History Aortocoronary bypass status (~02/12/17) History of cardiac catheterization History of hand surgery History of right inguinal hernia repair History of umbilical hernia repair History of vasectomy Hx of CABG Hx of colonoscopy Hx of esophagogastroduodenoscopy Hx of heart bypass surgery S/P right inguinal hernia repair S/P umbilical hernia repair, follow-up exam Status post insertion of drug-eluting stent into right coronary artery for coronary artery disease (~04/2009) Social History adopted: No household members: spouse housing: house number of children: 2 current occupational status: retired Smoking Status: Former smoker Tobacco: How many years used: 50 (stopped about 10 yrs ago) how long ago did patient quit smokin years ago alcohol intake: current alcohol intake frequency: 3 or more drinks per day Alcohol type: beer, wine and hard liquor substance use type: does not use caffeine: Yes Type: coffee Number of servings: 2 Lab / Micro Data 06/20/23 01:18 06/20/23 13:45 06/20/23 1026 <Electronically signed by Jackie ZARATE> Cosigner Signature (if applicable): 06/20/23 1529 <Electronically signed by Kvng James MD> CC: Dr. Rosa Maria Santacruz MD; Dr. Lakshmi Carpenter MD; Dr. Kvng James MD~ Signed [facility] Work Phone: [phone]) 312-261212-22-2023 History and physical note Author Oniel Moulton [facility] June 20, 2023 11:06am Note Date/Time June 20, 2023 10:31am [facility] Medical Records Department [address] [place] [address] H&P Exam - Hospitalist 06/20/23 0742 MR#: [id number] Acct: [id number] Name: AMAURY BLANK Rep #:[id number] : 1940 82 From: Oniel Wallace PCP: Dr. Rosa Maria Santacruz MD Status:[facility] - General General Date of Admission: 06/20/23 Date of Service: 06/20/23 Chief Complaint: Woke up with shortness of breath and palpitation and flutter sensation. Recurrent fall HPI Narrative AMAURY BLANK, is a 82 M with multiple comorbidities was brought by EMS squad for palpitation and shortness of breath. He stated about 1:30 AM today he felt like flutter waves, was short of breath was dizzy and lightheaded. Patient denies chest pressure tightness or congestion. He denies fever cough, recent URI symptoms or pneumonia like symptoms. Patient further said he had a fall about 3 times in the last 10 days. He fell yesterday, day before yesterday and about 8 days ago. He states while turning he loses balance and then fall. He also has ulcer over right lower leg from fall which is chronic and follows with wound center. He also has a left heel ulcer and left leg ulcer is healing. As per EMS EKG shows sinus bradycardia heart rate 60 but in ED 8 gradually decreased to 42.8. Neck blood pressure initially was 144/59 but decreased down in the 90s. Patient was given 1 L normal saline bolus and hyperkalemia cocktailfor hyperkalemia serum potassium 5.7. Patient glucose was also 40 probably due to insulin, hyperkalemia cocktail and had D10. [facility] Medical History Alcohol use Atherosclerotic heart disease of [place] coronary artery without angina pectoris Atrial fibrillation and flutter Cardiology follow-up encounter Carotid artery stenosis Dietary restriction Elevated troponin Emphysema of lung Essential hypertension Fever Former smoker Hematemesis/vomiting blood High cholesterol History of atrial fibrillation History of cardioversion (~05/09/20) History of coronary artery disease History of echocardiogram History of edema History of GI bleed History of right inguinal hernia History of stress test History of transesophageal echocardiography (ROSI) History of umbilical hernia Hx of ulcerative colitis Hypercholesterolemia Hyperlipidemia Hypertension Injury of head and neck 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 Mitral valve insufficiency PAD (peripheral artery disease) Premature atrial contractions Right carotid bruit Subclavian artery stenosis, left (~10/15/19) Thrombocytopenia Thrombocytopenia Thyroid disease Ulcerative colitis Upper GI bleed Upper GI bleed Walker as ambulation aid Wears glasses Wears hearing aid Home Medications ferrous sulfate 325 mg (65 mg iron) tablet 325 mg PO DAILY vitamin 05/28/15 [History Last Taken 05/09/20] vitamin B complex 1 each PO DAILY vitamin 02/07/16 [History Last Taken 05/09/20] levothyroxine 50 mcg tablet 75 mcg PO DAILY thyroid 06/13/20 [History Last Taken Unknown] acetaminophen 500 mg tablet 1,000 mg (2 x 500 mg) PO Q6H PRN PRN Pain Score 1-5 #0 tabs 12/19/22 [Rx Last Taken Unknown] aspirin 81 mg tablet,delayed release 81 mg PO DAILY 04/14/23 [History Last Taken Unknown] atorvastatin 40 mg tablet (Lipitor) 40 mg PO DAILY cholesterol #90 tabs 04/14/23[Rx Last Taken Unknown] balsalazide 750 mg capsule (Colazal) 2,250 mg PO BID 04/14/23 [History Last Taken Unknown] hydralazine 50 mg tablet 50 mg PO BID 04/14/23 [History Last Taken Unknown] amiodarone 200 mg tablet See Rx Instructions .Route .COMPLEX #90 TABLETS 05/09/23 [Rx Last Taken Unknown] amlodipine 10 mg tablet 10 mg PO DAILY #90 tabs 05/20/23 [Rx Last Taken Unknown] carvedilol 3.125 mg tablet 3.125 mg PO BID heart #180 tabs 05/21/23 [Rx Last Taken Unknown] lisinopril 20 mg tablet 20 mg PO DAILY #90 tabs 05/21/23 [Rx Last Taken Unknown] ciprofloxacin HCl 750 mg tablet 750 mg PO BID 2 weeks #28 tabs 06/09/23 [Rx Last Taken Unknown] doxycycline hyclate 100 mg capsule 100 mg PO BID 2 weeks #28 caps 06/09/23 [Rx Last Taken Unknown] Allergy/AdvReac Type Severity Reaction Status Date / Time hydrochlorothiazide Allergy Severe Rash Verified 06/20/23 00:46 furosemide [From Lasix] Allergy Severe Verified 06/20/23 00:46 Rash Itchy lovastatin [From Mevacor] Allergy Rash Verified 06/20/23 00:46 Family History Father CAD (coronary artery disease) Mother Cancer breast Surgical History Aortocoronary bypass status (~02/12/17) History of cardiac catheterization History of hand surgery History of right inguinal hernia repair History of umbilical hernia repair History of vasectomy Hx of CABG Hx of colonoscopy Hx of esophagogastroduodenoscopy Hx of heart bypass surgery S/P right inguinal hernia repair S/P umbilical hernia repair, follow-up exam Status post insertion of drug-eluting stent into right coronary artery for coronary artery disease (~04/2009) Social History adopted: No household members: spouse housing: house number of children: 2 current occupational status: retired Smoking Status: Former smoker Tobacco: How many years used: 50 (stopped about 10 yrs ago) how long ago did patient quit smokin years ago alcohol intake: current alcohol intake frequency: 3 or more drinks per day Alcohol type: beer, wine and hard liquor substance use type: does not use caffeine: Yes Type: coffee Number of servings: 2 ROS ROS Narrative Constitutional: Reports fatigue and weakness. No fever. HEENT: Reports systems reviewed and no addt'l complaints, except as documented Respiratory/Chest: As described in HPI. CVS: Severe bradycardia. No chest pain or pressure. No syncope. No LOC Gastrointestinal: Denies coffee ground emesis, hematemesis or vomiting Genitourinary: No acute change in urine output. Denies burning urination or newurinary tract symptoms Musculoskeletal: Easy loss of balance, weakness in lower leg muscles. Due to arthritis. Neurologic: Denies seizure-like symptoms. No acute or strokelike symptoms. skin: Bilateral lower leg and left heel ulcer chronic in nature. Endocrinology: Reports systems reviewed and no addt'l complaints, except as documented Hematologic/Lymphatic: Reports systems reviewed and no addt'l complaints, exceptas documented Rest 14 ROS are negative except as mentioned in HPI Vital Signs Vital Signs Vital Signs: 06/20/23 00:43 06/20/23 00:42 06/20/23 00:47 Temperature 96.5 F L Temperature Source Temporal Pulse Rate 60 61 Respiratory Rate 20 H 17 Respiratory Effort Short of Breath Respiratory Pattern Blood Pressure 144/59 H 144/59 H Blood Pressure Mean 87 87 Pulse Ox 95 98 Oxygen Delivery Method Room Air Room Air 06/20/23 01:06 06/20/23 02:08 06/20/23 02:47 Temperature Temperature Source Pulse Rate 55 L 59 L Respiratory Rate 20 H 17 Respiratory Effort Respiratory Pattern Normal Blood Pressure 115/58 L Blood Pressure Mean 77 Pulse Ox 98 93 Oxygen Delivery Method Room Air Room Air 06/20/23 05:44 Temperature Temperature Source Pulse Rate 42 L Respiratory Rate 16 Respiratory Effort Respiratory Pattern Blood Pressure 91/45 L Blood Pressure Mean 60 Pulse Ox 86 Oxygen Delivery Method Room Air Weight Weight: 191 lb 2.252 oz Body Mass Index (BMI) 27.4 Physical Exam Narrative General: Alert, Oriented x3, Cooperative HEENT: Atraumatic, PERRLA, EOMI, Normocephalic Oral: Oral mucosa dry. No Gingival or Mucosal Lesions/ Ulcerations Neck: Supple, No JVD, Negative Carotid Bruits Lungs: Air entry diminished in bilateral lung bases. No crepitation/rhonchi Cardiovascular: Sinus bradycardia normal S1, Normal S2, systolic murmur right second ICS LLSB. Aortic stenosis Abdomen: Bowel Sounds Present, Soft, Non Tender, Non-Distended : No renal angle tenderness. No suprapubic tenderness. Extremities: No edema, Capillary Refill Less than 3 Seconds Skin: Mild bruise over right nasolabial fold from previous fall. No acute bleeding. Bilateral lower leg ulcer chronic right is worse. Left heel ulcer. Musculoskeletal: No acute tenderness to Palpation of Joints or Extremities. Muscle strength 4+/5 at knees and hip joints. Neurological: Cranial nerves II-XII grossly intact, DTR 2+/4. No acute focal neurological deficit. Psych/Mental Status: Flat affect Results Lab / Micro Data 06/20/23 01:18 06/20/23 07:25 Labs: Laboratory Results - last 24 hr 06/20/23 01:18: WBC 3.7 L, RBC 2.24 L, Hgb 7.8 L, Hct 25.3 L, MCV 112.9 H, MCH 34.8 H, MCHC 30.8 L, RDW Std Deviation 81.2 H, RDW Coeff of Chanel 19.5 H, Plt Count 97 L, MPV 10.7, Immature Gran % (Auto) 0.300, Neut % (Auto) 73.4 H, Lymph %(Auto) 13.3 L, Kendall % (Auto) 10.9 H, Eos % (Auto) 1.6, Baso % (Auto) 0.5, Absolute Neuts (auto) 2.7, Absolute Lymphs (auto) 0.49 L, Nucleated RBC % 0, Differential Comment SCANNED, Diff Path Review May foll, Platelet Estimate MOD DEC, Anisocytosis 2+, Sodium 145, Potassium 5.7 H, Chloride 119 H, Carbon Dioxide 21.0, Anion Gap 5, BUN 47 H, Creatinine 2.50 H, Estim Creat Clear Calc 23.93, Est GFR (MDRD) Af Amer 32 L, Est GFR (MDRD) Non-Af 26 L, BUN/Creatinine Ratio 18.8, Glucose 84, Calcium 8.9, Troponin I High Sens 44 06/20/23 05:37: POC Glucose 40 L* 06/20/23 06:04: POC Glucose 135 H Imagaing Radiology Impression Chest X-Ray 06/20/23 01:20 IMPRESSION: Nonspecific mediastinal left lower lung retrocardiac opacity which could represent atelectasis or airspace disease or overlapping shadows. Consider PA and lateral chest radiograph. Cardiomegaly with mild interstitial edema and small right effusion. Trace left effusion. Atelectasis or fluid along the right minor fissure. Electronically Signed: Jus Benson MD at 1:51 EST , Assessment & Plan Assessment/Plan (1) Severe sinus bradycardia: (2) CKD (chronic kidney disease) stage 3, GFR 30-59 ml/min: (3) Hyperkalemia: PLAN: Plan 82-year-old gentleman being admitted for multiple acute issues including severe bradycardia, palpitation, severe hyperkalemia and recurrent fall 1. First-degree AV block/severe sinus bradycardia with history of chronic A-fib/flutter: Twelve-lead EKG initially reviewed and shows marked sinus bradycardia 81 bpm, first-degree AV block, QTc 478 previous EKG of January 03, 2023 was sinus bradycardia at 60 bpm. 2 serial troponins are negative. ACS ruled out. Patient on carvedilol 3.125 twice daily and amiodarone 200 mg daily and will hold it. Survey Supervisor consult requested. Last echo in November 2022 shows EF 60%, moderate MR, moderate 2+ TR, RVSP 77 mmHg suggestive of severe pulmonary hypertension. Left atrium enlarged. Carotid duplex in April 2023 shows moderate bilateral right and left extracranial internal carotid artery stenosis. Recent venous duplex in April 22, 2023 also negative for DVT. Arterial Doppler study on April 22, 2023 shows evidence of arterial calcification left ankle, monophasic waveforms, moderate arterial occlusive disease. Resting rightABI is normal with biphasic Doppler waveforms. 2. Coronary artery disease status post CABG and stent, valvular heart disease as described above, severe pulmonary hypertension and PAD: Described in detail above. Patient on aspirin and high intensity atorvastatin therefore continued. Hold beta-anna 3. CKD stage 4 with severe hyperkalemia: Patient had potassium 5.7 and hyperkalemia cocktail was given. Repeat serum potassium 6.0. Hyperkalemia cocktail given along with bicarb drip. Labs reviewed BUN 59/creatinine 2.59 on baseline, estimated creatinine clearance 23 mill per minute. Antisqueak Chalker is consulted. Patient got total of Kayexalate 45 g. Repeat serum potassium at 2 PM ordered. 4. Chronic mild pancytopenia: Patient had pancytopenia during previous admission in November 2022. WBC count 3.7 thousand, H&H 7.8/25.3, severe macrocyticanemia with elevated MCV, MCH and RDW. Severe thrombocytopenia 97,000. Patienthad anisocytosis. Recent B12 and folate normal range on 03/26/2023. Iron panel was consistent with anemia of chronic disease. The patient follows director of consumer affairs Dr. Mcintyre 5. History of ulcerative colitis continue Colazal. 6. Hypothyroidism: Continue Synthroid. TSH ordered for tomorrow AM. 7. Acute on recurrent fall: PT and OT ordered. 8. Chronic bilateral lower leg ulcer with left heel ulcer suggestive of decubitus ulcer with history of peripheral artery disease: Patient has bilaterallower leg ulcer initially started with fall. 9. History of chronic alcohol use disorder 10. History of COPD/emphysema with VATS : In August 2020 at [facility] after CT surgery evaluation. Had pneumothorax at that time DVT prophylaxis: Pharmacologic contraindicated due to severe thrombocytopenia and anemia. Bilateral SCDs Living will/advanced directive/end of life care: Patient does have living will or advanced directive. After discussion of benefits/risks procedures involved with full code, DNR CC arrest and DNR CC, the patient said that he is DNR CC arrest with no intubation. He has power of county attorney for health and both sons are equally power of county attorney for healthcare Patient does want artificial life support including intubation, tube feed, ventilator and/chest compression, central venous catheter, vasopressor and DC shock if needed Total time spent in [id number] encounter in discussion of advanced directive 17 minutes. Laboratory Results 06/20/23 01:18: WBC 3.7 L, RBC 2.24 L, Hgb 7.8 L, Hct 25.3 L, MCV 112.9 H, MCH 34.8 H, MCHC 30.8 L, RDW Std Deviation 81.2 H, RDW Coeff of Chanel 19.5 H, Plt Count 97 L, MPV 10.7, Immature Gran % (Auto) 0.300, Neut % (Auto) 73.4 H, Lymph % (Auto) 13.3 L, Kendall % (Auto) 10.9 H, Eos % (Auto) 1.6, Baso % (Auto) 0.5, Absolute Neuts (auto) 2.7, Absolute Lymphs (auto) 0.49 L, Nucleated RBC % 0, Differential Comment SCANNED, Diff Path Review May foll, Platelet Estimate MOD DEC, Anisocytosis 2+, Sodium 145, Potassium 5.7 H, Chloride 119 H, Carbon Dioxide 21.0, Anion Gap 5, BUN 47 H, Creatinine 2.50 H, Estim Creat Clear Calc 23.93, Est GFR (MDRD) Af Amer 32 L, Est GFR (MDRD) Non-Af 26 L, BUN/Creatinine Ratio 18.8, Glucose 84, Calcium 8.9, Troponin I High Sens 44 06/20/23 05:37: POC Glucose 40 L* 06/20/23 06:04: POC Glucose 135 H 06/20/23 07:25: Sodium 143, Potassium 6.0 H*, Chloride 119 H, Carbon Dioxide 22.0, Anion Gap 2 L, BUN 51 H, Creatinine 2.59 H, Estim Creat Clear Calc 23.10, Est GFR (MDRD) Af Amer 31 L, Est GFR (MDRD) Non-Af 25 L, BUN/Creatinine Ratio 19.7, Glucose 113 H, Calcium 9.3, Phosphorus 3.8, Magnesium 2.0, Troponin I [place] [id number] 06/20/23 08:55: POC Glucose 150 H 2D echo November 29, 2022 Interpretation Summary The study was technically difficult. Moderate concentric left ventricular hypertrophy. The left ventricular ejection fraction is 60 %. Diastolic function is indeterminate. The left atrium is severely enlarged. 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 Moderate (2+) tricuspid valve insufficiency. Severe pulmonary hypertension. The right atrium is moderately enlarged. Charges/Coding Visit Charges Inpatient E&M: 44681 Init Hosp L3 Procedures Hospitalists Procedures: 81710 Advncd Care Plan 30 Min 06/20/23 1106 <Electronically signed by Oniel Moulton MD> Cosigner Signature (if applicable): CC: Dr. Rosa Maria Santacruz MD; Dr. Oniel Moulton MD~ Signed [facility] Work Phone: 1(547) 561-815112-22-2023 Discharge summary Author Jakob Nowak [facility] June 20, 2023 8:02am Note Date/Time June 20, 2023 1:04am [facility] Medical Records Department [address] [place] [address] Emergency Department Summary 06/20/23 MR#: [id number] Acct: [id number] Name: AMAURY BLANK Rep #:[id number] : 1940 82 From: Jakob Orantes PCP: Dr. Rosa Maria Santacruz MD Status:ADM IN Location: [place] [address] HPI History of Present Illness Chief Complaint: Palpitations Informant: patient Onset/Context/Timing Onset: Days (3) Context: Gradual Onset Timing: Intermittent Quality: Shaking Location: Bilateral thighs and lower legs Worsened by: Nothing Relieved by: Oxygen Narrative Narrative: Patient presents with palpitations that have been intermittent over the last 3 days. Patient states that he woke up tonight and felt shaking in his thighs andlegs. Patient states it seemed to get better when EMS applied oxygen. Patient states it seemed to return when they remove the oxygen. Patient admits to some shortness of breath. Patient denies any chest pain. Patient denies any nausea or vomiting. Patient denies any diaphoresis. Patient states he does have a history of atrial fibrillation. [facility] Medical History Alcohol use Atherosclerotic heart disease of [place] coronary artery without angina pectoris Atrial fibrillation and flutter Cardiology follow-up encounter Carotid artery stenosis Dietary restriction Elevated troponin Emphysema of lung Essential hypertension Fever Former smoker Hematemesis/vomiting blood High cholesterol History of atrial fibrillation History of cardioversion (~05/09/20) History of coronary artery disease History of echocardiogram History of edema History of GI bleed History of right inguinal hernia History of stress test History of transesophageal echocardiography (ROSI) History of umbilical hernia Hx of ulcerative colitis Hypercholesterolemia Hyperlipidemia Hypertension Injury of head and neck 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 Mitral valve insufficiency PAD (peripheral artery disease) Premature atrial contractions Right carotid bruit Subclavian artery stenosis, left (~10/15/19) Thrombocytopenia Thrombocytopenia Thyroid disease Ulcerative colitis Upper GI bleed Upper GI bleed Walker as ambulation aid Wears glasses Wears hearing aid Home Medications ferrous sulfate 325 mg (65 mg iron) tablet 325 mg PO DAILY vitamin 05/28/15 [History Last Taken 05/09/20] vitamin B complex 1 each PO DAILY vitamin 02/07/16 [History Last Taken 05/09/20] levothyroxine 50 mcg tablet 75 mcg PO DAILY thyroid 06/13/20 [History Last Taken Unknown] acetaminophen 500 mg tablet 1,000 mg (2 x 500 mg) PO Q6H PRN PRN Pain Score 1-5 #0 tabs 12/19/22 [Rx Last Taken Unknown] aspirin 81 mg tablet,delayed release 81 mg PO DAILY 04/14/23 [History Last Taken Unknown] atorvastatin 40 mg tablet (Lipitor) 40 mg PO DAILY cholesterol #90 tabs 04/14/23[Rx Last Taken Unknown] balsalazide 750 mg capsule (Colazal) 2,250 mg PO BID 04/14/23 [History Last Taken Unknown] hydralazine 50 mg tablet 50 mg PO BID 04/14/23 [History Last Taken Unknown] amiodarone 200 mg tablet See Rx Instructions .Route .COMPLEX #90 TABLETS 05/09/23 [Rx Last Taken Unknown] amlodipine 10 mg tablet 10 mg PO DAILY #90 tabs 05/20/23 [Rx Last Taken Unknown] carvedilol 3.125 mg tablet 3.125 mg PO BID heart #180 tabs 05/21/23 [Rx Last Taken Unknown] lisinopril 20 mg tablet 20 mg PO DAILY #90 tabs 05/21/23 [Rx Last Taken Unknown] ciprofloxacin HCl 750 mg tablet 750 mg PO BID 2 weeks #28 tabs 06/09/23 [Rx Last Taken Unknown] doxycycline hyclate 100 mg capsule 100 mg PO BID 2 weeks #28 caps 06/09/23 [Rx Last Taken Unknown] Allergy/AdvReac Type Severity Reaction Status Date / Time hydrochlorothiazide Allergy Severe Rash Verified 06/20/23 00:46 furosemide [From Lasix] Allergy Severe Verified 06/20/23 00:46 Rash Itchy lovastatin [From Mevacor] Allergy Rash Verified 06/20/23 00:46 Family History Father CAD (coronary artery disease) Mother Cancer breast Surgical History Aortocoronary bypass status (~02/12/17) History of cardiac catheterization History of hand surgery History of right inguinal hernia repair History of umbilical hernia repair History of vasectomy Hx of CABG Hx of colonoscopy Hx of esophagogastroduodenoscopy Hx of heart bypass surgery S/P right inguinal hernia repair S/P umbilical hernia repair, follow-up exam Status post insertion of drug-eluting stent into right coronary artery for coronary artery disease (~04/2009) Social History adopted: No household members: spouse housing: house number of children: 2 current occupational status: retired Smoking Status: Former smoker Tobacco: How many years used: 50 (stopped about 10 yrs ago) how long ago did patient quit smokin years ago alcohol intake: current alcohol intake frequency: 3 or more drinks per day Alcohol type: beer, wine and hard liquor substance use type: does not use caffeine: Yes Type: coffee Number of servings: 2 ROS ROS ED Constitutional Constitutional ED: Denies chills or fever(s) Eyes Eyes: Denies blurry vision or change in vision ENT ENT ED: Denies rhinorrhea or sore throat Cardiovascular Cardiovascular: Reports palpitations; Denies chest pain Respiratory/Chest Respiratory/Chest: Reports dyspnea; Denies cough Gastrointestinal Gastrointestinal: Denies nausea or vomiting Genitourinary Genitourinary ED: Denies dysuria or hematuria Musculoskeletal Musculoskeletal: Denies back pain or neck pain Integumentary Denies abscess or rash Neurologic Neurologic: Denies headache(s) or weakness Allergic/Immunologic Allergic/Immunologic ED: Denies mouth swelling or urticaria EXAM Physical Exam Const Vital Signs: 06/20/23 00:43 06/20/23 00:42 06/20/23 00:47 Temperature 96.5 F L Temperature Source Temporal Pulse Rate 60 61 Respiratory Rate 20 H 17 Respiratory Effort Short of Breath Respiratory Pattern Blood Pressure 144/59 H 144/59 H Blood Pressure Mean 87 87 Pulse Ox 95 98 Oxygen Delivery Method Room Air Room Air 06/20/23 01:06 06/20/23 02:08 06/20/23 02:47 Temperature Temperature Source Pulse Rate 55 L 59 L Respiratory Rate 20 H 17 Respiratory Effort Respiratory Pattern Normal Blood Pressure 115/58 L Blood Pressure Mean 77 Pulse Ox 98 93 Oxygen Delivery Method Room Air Room Air 06/20/23 05:44 Temperature Temperature Source Pulse Rate 42 L Respiratory Rate 16 Respiratory Effort Respiratory Pattern Blood Pressure 91/45 L Blood Pressure Mean 60 Pulse Ox 86 Oxygen Delivery Method Room Air Positive well nourished and well developed General Appearance ED: well developed and NAD HEENT Reports moist mucous membranes Neck supple and no JVD Resp normal respiratory effort and clear to auscultation bilaterally Cardio regular rate and regular rhythm GI non-tender and non-distended Palpation: soft Extremity General Extremety ED: Negative for edema General Extremity: Negative for edema Neuro oriented x3, CN's II-XII intact bilaterally and no sensory deficits noted Sensorium / Orientation: alert Motor Exam: strength 5/5 throughout Psych mental status grossly normal MDM MDM MDM Narrative Medical decision making narrative: Differential diagnosis includes cardiac dysrhythmia, cardiac ischemia, electrolyte abnormality, pneumonia, pneumothorax, GERD, and anxiety. EKG will be obtained to assess for cardiac dysrhythmia and cardiac ischemia. Chest x-raywill be obtained to assess for pneumonia and pneumothorax. CBC will be obtainedto assess for leukocytosis and anemia. Basic metabolic profile will be obtainedto assess for electrolyte abnormality and renal function. High-sensitivity troponin will be obtained to assess for cardiac ischemia. Patient has a Wells score of 0. I do not feel this is from a pulmonary embolism. Lab Data Attestation: I reviewed the patient's lab results. Lab results narrative: CBC was reviewed. White blood cell count was slightly low at 3.7. Hemoglobin was 7.8 and hematocrit 25.3. These are consistent with prior results. Platelets were slightly low at 97. Basic metabolic profile was reviewed. Potassium was elevated at 5.7. Chloride was elevated at 119. BUN was 47 and creatinine was 2.5. These are consistent with prior results. High-sensitivity troponin was reviewed and was normal at 44. Labs: Laboratory Results - last 24 hr 06/20/23 06/20/23 06/20/23 01:18 05:37 06:04 WBC 3.7 L RBC 2.24 L Hgb 7.8 L Hct 25.3 L MCV 112.9 H MCH 34.8 H MCHC 30.8 L RDW Std Deviation 81.2 H RDW Coeff of Chanel 19.5 H Plt Count 97 L MPV 10.7 Immature Gran % (Auto) 0.300 Neut % (Auto) 73.4 H Lymph % (Auto) 13.3 L Kendall % (Auto) 10.9 H Eos % (Auto) 1.6 Baso % (Auto) 0.5 Absolute Neuts (auto) 2.7 Absolute Lymphs (auto) 0.49 L Nucleated RBC % 0 Differential Comment SCANNED Diff Path Review May foll Platelet Estimate MOD DEC Anisocytosis 2+ Sodium 145 Potassium 5.7 H Chloride 119 H Carbon Dioxide 21.0 Anion Gap 5 BUN 47 H Creatinine 2.50 H Estim Creat Clear Calc 23.93 Est GFR (MDRD) Af Amer 32 L Est GFR (MDRD) Non-Af 26 L BUN/Creatinine Ratio 18.8 Glucose 84 Calcium 8.9 Troponin I High Sens 44 POC Glucose 40 L* 135 H Radiography Diagnostic Testing: Clinical Impression(s) from Imaging Studies Chest X-Ray 06/20/23 01:20 IMPRESSION: Nonspecific mediastinal left lower lung retrocardiac opacity which could represent atelectasis or airspace disease or overlapping shadows. Consider PA and lateral chest radiograph. Cardiomegaly with mild interstitial edema and small right effusion. Trace left effusion. Atelectasis or fluid along the right minor fissure. Electronically Signed: Jus Benson MD at 1:51 EST , Portable chest x-ray was obtained. There is 1 view. On my independent interpretation, there is a left lower lobe retrocardiac atelectasis there is mild interstitial edema and small right effusion. There is a trace left effusion. Radiologist also interpreted the x-ray and agrees. EKG Initial EKG: Attestation: I personally reviewed and interpreted this EKG as follows: Interpretation: Sinus Rhythm (60) and Non-Specific ST Changes Comments: EKG was obtained. On my independent interpretation, it showed asinus rhythm with first-degree AV block with a rate of 60. OH interval was prolonged at 290 ms. QRS of was normal at 118 ms. QTc interval was 482 ms. There is left axis deviation at -27. There are nonspecific ST-T wave changes. Prior EKG tracings: available for review Prior: Unchanged (01/04/2023) Follow-up EKG: Attestation: I personally reviewed and interpreted this EKG as follows: Interpretation: Sinus Bradycardia (With a first-degree AV block with a rate of 41) and Non-Specific ST Changes Comments: EKG was obtained. On my independent interpretation, it showed sinus bradycardia with first-degree AV block with a rate of 41. OH interval wasprolonged at 326 ms. QRS interval was normal at 120 ms. QTc interval was normal at 478 ms. [place] is borderline left axis deviation at -16. There are nonspecific ST-T wave changes. This was unchanged compared to previous EKG. Prior EKG tracings: available for review Prior: Unchanged Treatment and Re-Evaluation :: Patient was advised of his findings. Patient was given albuterol aerosol. Patient was given calcium gluconate, dextrose, and insulin for the hyperkalemia. Patient states his palpitations have resolved. Patient feels better. Patient tried to get up to go to the bathroom and felt lightheaded. BGT was obtained atthat time and was 40. Patient was given another amp of dextrose. Patient's heart rate dropped into the 40s. Patient was noted to be sinus bradycardia on the monitor. Patient's blood pressure went down to 91/45. Patient states he isfeeling clammy. Patient was given some more IV fluids. Patient states blood pressure improved after this. Case will be discussed with the hospitalist for admission. Case was discussed with the hospitalist. He will admit the patient to PCU. He recommended giving the patient another liter of IV fluids. This wasordered. Patient's blood pressure improved to 125/59. Patient understood and was agreeable with the plan. All questions were answered. Discharge Plan Triage Chief Complaint: Palpitations ED Provider: Jakob Nowak Dx/Rx/DC Orders Clinical Impression: Debility, Palpitations, Hyperkalemia, General weakness Prescriptions: No Action aspirin 81 mg tablet,delayed release (DR/EC) 81 mg PO DAILY balsalazide [Colazal] 750 mg capsule 2,250 mg PO BID hydralazine 50 mg tablet 50 mg PO BID ferrous sulfate 325 MG tablet 325 mg PO DAILY Patient Comments: Iron supplement vitamin B complex 1 EACH capsule 1 each PO DAILY Patient Comments: Vitamin supplement acetaminophen 500 mg Tablet 1,000 mg PO Q6H PRN PRN (Reason: Pain Score 1-5) Qty: 0 0RF doxycycline hyclate 100 mg capsule 100 mg PO BID 14 Days Qty: 28 0RF ciprofloxacin HCl 750 mg tablet 750 mg PO BID 14 Days Qty: 28 0RF levothyroxine 50 mcg tablet 75 mcg PO DAILY atorvastatin [Lipitor] 40 mg tablet 40 mg PO DAILY Qty: 90 3RF amiodarone 200 mg tablet See Rx Instructions .ROUTE .COMPLEX Qty: 90 3RF Dose Instruction: TAKE 1 TABLET BY MOUTH DAILY FOR AFIB/FLUTTER Rx Instructions: TAKE 1 TABLET BY MOUTH DAILY FOR AFIB/FLUTTER amlodipine 10 mg tablet 10 mg PO DAILY Qty: 90 3RF carvedilol 3.125 mg tablet 3.125 mg PO BID Qty: 180 0RF lisinopril 20 mg tablet 20 mg PO DAILY Qty: 90 3RF Primary Care Provider: Rosa Maria Santacruz Referrals: Rosa Maria Santacruz MD [Primary Care Provider] - 3-5 Days Disposition Disposition: Acute Care Hospital [facility] What to do if you have Problems For any increased pain, shortness of breath, bleeding, nausea or vomiting, chestpain, or any unexpected problems, contact your Primary Care Provider. Call [facility] ([phone]) or report to the closest Emergency Room. Call 911 if necessary. 06/20/23 0802 <Electronically signed by Jakob Nowak DO> Cosigner Signature (if applicable): CC: Dr. Rosa Maria Santacruz MD ~ Signed [facility] Work Phone: 1(653) 174-407312-22-2023 Discharge summary Author Jakob Nowak [facility] June 20, 2023 8:02am Note Date/Time June 20, 2023 1:04am [facility] Medical Records Department [address] [place] [address] Emergency Department Summary 06/20/23 MR#: [id number] Acct: [id number] Name: AMAURY BLANK Rep #:[id number] : 1940 82 From: Jakob Orantes PCP: Dr. Rosa Maria Santacruz MD Status:ADM IN Location: [place] [address] HPI History of Present Illness Chief Complaint: Palpitations Informant: patient Onset/Context/Timing Onset: Days (3) Context: Gradual Onset Timing: Intermittent Quality: Shaking Location: Bilateral thighs and lower legs Worsened by: Nothing Relieved by: Oxygen Narrative Narrative: Patient presents with palpitations that have been intermittent over the last 3 days. Patient states that he woke up tonight and felt shaking in his thighs andlegs. Patient states it seemed to get better when EMS applied oxygen. Patient states it seemed to return when they remove the oxygen. Patient admits to some shortness of breath. Patient denies any chest pain. Patient denies any nausea or vomiting. Patient denies any diaphoresis. Patient states he does have a history of atrial fibrillation. [facility] Medical History Alcohol use Atherosclerotic heart disease of [place] coronary artery without angina pectoris Atrial fibrillation and flutter Cardiology follow-up encounter Carotid artery stenosis Dietary restriction Elevated troponin Emphysema of lung Essential hypertension Fever Former smoker Hematemesis/vomiting blood High cholesterol History of atrial fibrillation History of cardioversion (~05/09/20) History of coronary artery disease History of echocardiogram History of edema History of GI bleed History of right inguinal hernia History of stress test History of transesophageal echocardiography (ROSI) History of umbilical hernia Hx of ulcerative colitis Hypercholesterolemia Hyperlipidemia Hypertension Injury of head and neck 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 Mitral valve insufficiency PAD (peripheral artery disease) Premature atrial contractions Right carotid bruit Subclavian artery stenosis, left (~10/15/19) Thrombocytopenia Thrombocytopenia Thyroid disease Ulcerative colitis Upper GI bleed Upper GI bleed Walker as ambulation aid Wears glasses Wears hearing aid Home Medications ferrous sulfate 325 mg (65 mg iron) tablet 325 mg PO DAILY vitamin 05/28/15 [History Last Taken 05/09/20] vitamin B complex 1 each PO DAILY vitamin 02/07/16 [History Last Taken 05/09/20] levothyroxine 50 mcg tablet 75 mcg PO DAILY thyroid 06/13/20 [History Last Taken Unknown] acetaminophen 500 mg tablet 1,000 mg (2 x 500 mg) PO Q6H PRN PRN Pain Score 1-5 #0 tabs 12/19/22 [Rx Last Taken Unknown] aspirin 81 mg tablet,delayed release 81 mg PO DAILY 04/14/23 [History Last Taken Unknown] atorvastatin 40 mg tablet (Lipitor) 40 mg PO DAILY cholesterol #90 tabs 04/14/23[Rx Last Taken Unknown] balsalazide 750 mg capsule (Colazal) 2,250 mg PO BID 04/14/23 [History Last Taken Unknown] hydralazine 50 mg tablet 50 mg PO BID 04/14/23 [History Last Taken Unknown] amiodarone 200 mg tablet See Rx Instructions .Route .COMPLEX #90 TABLETS 05/09/23 [Rx Last Taken Unknown] amlodipine 10 mg tablet 10 mg PO DAILY #90 tabs 05/20/23 [Rx Last Taken Unknown] carvedilol 3.125 mg tablet 3.125 mg PO BID heart #180 tabs 05/21/23 [Rx Last Taken Unknown] lisinopril 20 mg tablet 20 mg PO DAILY #90 tabs 05/21/23 [Rx Last Taken Unknown] ciprofloxacin HCl 750 mg tablet 750 mg PO BID 2 weeks #28 tabs 06/09/23 [Rx Last Taken Unknown] doxycycline hyclate 100 mg capsule 100 mg PO BID 2 weeks #28 caps 06/09/23 [Rx Last Taken Unknown] Allergy/AdvReac Type Severity Reaction Status Date / Time hydrochlorothiazide Allergy Severe Rash Verified 06/20/23 00:46 furosemide [From Lasix] Allergy Severe Verified 06/20/23 00:46 Rash Itchy lovastatin [From Mevacor] Allergy Rash Verified 06/20/23 00:46 Family History Father CAD (coronary artery disease) Mother Cancer breast Surgical History Aortocoronary bypass status (~02/12/17) History of cardiac catheterization History of hand surgery History of right inguinal hernia repair History of umbilical hernia repair History of vasectomy Hx of CABG Hx of colonoscopy Hx of esophagogastroduodenoscopy Hx of heart bypass surgery S/P right inguinal hernia repair S/P umbilical hernia repair, follow-up exam Status post insertion of drug-eluting stent into right coronary artery for coronary artery disease (~04/2009) Social History adopted: No household members: spouse housing: house number of children: 2 current occupational status: retired Smoking Status: Former smoker Tobacco: How many years used: 50 (stopped about 10 yrs ago) how long ago did patient quit smokin years ago alcohol intake: current alcohol intake frequency: 3 or more drinks per day Alcohol type: beer, wine and hard liquor substance use type: does not use caffeine: Yes Type: coffee Number of servings: 2 ROS ROS ED Constitutional Constitutional ED: Denies chills or fever(s) Eyes Eyes: Denies blurry vision or change in vision ENT ENT ED: Denies rhinorrhea or sore throat Cardiovascular Cardiovascular: Reports palpitations; Denies chest pain Respiratory/Chest Respiratory/Chest: Reports dyspnea; Denies cough Gastrointestinal Gastrointestinal: Denies nausea or vomiting Genitourinary Genitourinary ED: Denies dysuria or hematuria Musculoskeletal Musculoskeletal: Denies back pain or neck pain Integumentary Denies abscess or rash Neurologic Neurologic: Denies headache(s) or weakness Allergic/Immunologic Allergic/Immunologic ED: Denies mouth swelling or urticaria EXAM Physical Exam Const Vital Signs: 06/20/23 00:43 06/20/23 00:42 06/20/23 00:47 Temperature 96.5 F L Temperature Source Temporal Pulse Rate 60 61 Respiratory Rate 20 H 17 Respiratory Effort Short of Breath Respiratory Pattern Blood Pressure 144/59 H 144/59 H Blood Pressure Mean 87 87 Pulse Ox 95 98 Oxygen Delivery Method Room Air Room Air 06/20/23 01:06 06/20/23 02:08 06/20/23 02:47 Temperature Temperature Source Pulse Rate 55 L 59 L Respiratory Rate 20 H 17 Respiratory Effort Respiratory Pattern Normal Blood Pressure 115/58 L Blood Pressure Mean 77 Pulse Ox 98 93 Oxygen Delivery Method Room Air Room Air 06/20/23 05:44 Temperature Temperature Source Pulse Rate 42 L Respiratory Rate 16 Respiratory Effort Respiratory Pattern Blood Pressure 91/45 L Blood Pressure Mean 60 Pulse Ox 86 Oxygen Delivery Method Room Air Positive well nourished and well developed General Appearance ED: well developed and NAD HEENT Reports moist mucous membranes Neck supple and no JVD Resp normal respiratory effort and clear to auscultation bilaterally Cardio regular rate and regular rhythm GI non-tender and non-distended Palpation: soft Extremity General Extremety ED: Negative for edema General Extremity: Negative for edema Neuro oriented x3, CN's II-XII intact bilaterally and no sensory deficits noted Sensorium / Orientation: alert Motor Exam: strength 5/5 throughout Psych mental status grossly normal MDM MDM MDM Narrative Medical decision making narrative: Differential diagnosis includes cardiac dysrhythmia, cardiac ischemia, electrolyte abnormality, pneumonia, pneumothorax, GERD, and anxiety. EKG will be obtained to assess for cardiac dysrhythmia and cardiac ischemia. Chest x-raywill be obtained to assess for pneumonia and pneumothorax. CBC will be obtainedto assess for leukocytosis and anemia. Basic metabolic profile will be obtainedto assess for electrolyte abnormality and renal function. High-sensitivity troponin will be obtained to assess for cardiac ischemia. Patient has a Wells score of 0. I do not feel this is from a pulmonary embolism. Lab Data Attestation: I reviewed the patient's lab results. Lab results narrative: CBC was reviewed. White blood cell count was slightly low at 3.7. Hemoglobin was 7.8 and hematocrit 25.3. These are consistent with prior results. Platelets were slightly low at 97. Basic metabolic profile was reviewed. Potassium was elevated at 5.7. Chloride was elevated at 119. BUN was 47 and creatinine was 2.5. These are consistent with prior results. High-sensitivity troponin was reviewed and was normal at 44. Labs: Laboratory Results - last 24 hr 06/20/23 06/20/23 06/20/23 01:18 05:37 06:04 WBC 3.7 L RBC 2.24 L Hgb 7.8 L Hct 25.3 L MCV 112.9 H MCH 34.8 H MCHC 30.8 L RDW Std Deviation 81.2 H RDW Coeff of Chanel 19.5 H Plt Count 97 L MPV 10.7 Immature Gran % (Auto) 0.300 Neut % (Auto) 73.4 H Lymph % (Auto) 13.3 L Kendall % (Auto) 10.9 H Eos % (Auto) 1.6 Baso % (Auto) 0.5 Absolute Neuts (auto) 2.7 Absolute Lymphs (auto) 0.49 L Nucleated RBC % 0 Differential Comment SCANNED Diff Path Review May foll Platelet Estimate MOD DEC Anisocytosis 2+ Sodium 145 Potassium 5.7 H Chloride 119 H Carbon Dioxide 21.0 Anion Gap 5 BUN 47 H Creatinine 2.50 H Estim Creat Clear Calc 23.93 Est GFR (MDRD) Af Amer 32 L Est GFR (MDRD) Non-Af 26 L BUN/Creatinine Ratio 18.8 Glucose 84 Calcium 8.9 Troponin I High Sens 44 POC Glucose 40 L* 135 H Radiography Diagnostic Testing: Clinical Impression(s) from Imaging Studies Chest X-Ray 06/20/23 01:20 IMPRESSION: Nonspecific mediastinal left lower lung retrocardiac opacity which could represent atelectasis or airspace disease or overlapping shadows. Consider PA and lateral chest radiograph. Cardiomegaly with mild interstitial edema and small right effusion. Trace left effusion. Atelectasis or fluid along the right minor fissure. Electronically Signed: Jus Benson MD at 1:51 EST Reading Location ID and State: [facility] / [place] Tel , Service support , Portable chest x-ray was obtained. There is 1 view. On my independent interpretation, there is a left lower lobe retrocardiac atelectasis there is mild interstitial edema and small right effusion. There is a trace left effusion. Radiologist also interpreted the x-ray and agrees. EKG Initial EKG: Attestation: I personally reviewed and interpreted this EKG as follows: Interpretation: Sinus Rhythm (60) and Non-Specific ST Changes Comments: EKG was obtained. On my independent interpretation, it showed asinus rhythm with first-degree AV block with a rate of 60. OH interval was prolonged at 290 ms. QRS of was normal at 118 ms. QTc interval was 482 ms. There is left axis deviation at -27. There are nonspecific ST-T wave changes. Prior EKG tracings: available for review Prior: Unchanged (01/04/2023) Follow-up EKG: Attestation: I personally reviewed and interpreted this EKG as follows: Interpretation: Sinus Bradycardia (With a first-degree AV block with a rate of 41) and Non-Specific ST Changes Comments: EKG was obtained. On my independent interpretation, it showed sinus bradycardia with first-degree AV block with a rate of 41. OH interval wasprolonged at 326 ms. QRS interval was normal at 120 ms. QTc interval was normal at 478 ms. [place] is borderline left axis deviation at -16. There are nonspecific ST-T wave changes. This was unchanged compared to previous EKG. Prior EKG tracings: available for review Prior: Unchanged Treatment and Re-Evaluation :: Patient was advised of his findings. Patient was given albuterol aerosol. Patient was given calcium gluconate, dextrose, and insulin for the hyperkalemia. Patient states his palpitations have resolved. Patient feels better. Patient tried to get up to go to the bathroom and felt lightheaded. BGT was obtained atthat time and was 40. Patient was given another amp of dextrose. Patient's heart rate dropped into the 40s. Patient was noted to be sinus bradycardia on the monitor. Patient's blood pressure went down to 91/45. Patient states he isfeeling clammy. Patient was given some more IV fluids. Patient states blood pressure improved after this. Case will be discussed with the hospitalist for admission. Case was discussed with the hospitalist. He will admit the patient to PCU. He recommended giving the patient another liter of IV fluids. This wasordered. Patient's blood pressure improved to 125/59. Patient understood and was agreeable with the plan. All questions were answered. Discharge Plan Triage Chief Complaint: Palpitations ED Provider: Jakob Nowak Dx/Rx/DC Orders Clinical Impression: Debility, Palpitations, Hyperkalemia, General weakness Prescriptions: No Action aspirin 81 mg tablet,delayed release (DR/EC) 81 mg PO DAILY balsalazide [Colazal] 750 mg capsule 2,250 mg PO BID hydralazine 50 mg tablet 50 mg PO BID ferrous sulfate 325 MG tablet 325 mg PO DAILY Patient Comments: Iron supplement vitamin B complex 1 EACH capsule 1 each PO DAILY Patient Comments: Vitamin supplement acetaminophen 500 mg Tablet 1,000 mg PO Q6H PRN PRN (Reason: Pain Score 1-5) Qty: 0 0RF doxycycline hyclate 100 mg capsule 100 mg PO BID 14 Days Qty: 28 0RF ciprofloxacin HCl 750 mg tablet 750 mg PO BID 14 Days Qty: 28 0RF levothyroxine 50 mcg tablet 75 mcg PO DAILY atorvastatin [Lipitor] 40 mg tablet 40 mg PO DAILY Qty: 90 3RF amiodarone 200 mg tablet See Rx Instructions .ROUTE .COMPLEX Qty: 90 3RF Dose Instruction: TAKE 1 TABLET BY MOUTH DAILY FOR AFIB/FLUTTER Rx Instructions: TAKE 1 TABLET BY MOUTH DAILY FOR AFIB/FLUTTER amlodipine 10 mg tablet 10 mg PO DAILY Qty: 90 3RF carvedilol 3.125 mg tablet 3.125 mg PO BID Qty: 180 0RF lisinopril 20 mg tablet 20 mg PO DAILY Qty: 90 3RF Primary Care Provider: Rosa Maria Santacruz Referrals: Rosa Maria Santacruz MD [Primary Care Provider] - 3-5 Days Disposition Disposition: Acute Care Hospital [facility] What to do if you have Problems For any increased pain, shortness of breath, bleeding, nausea or vomiting, chestpain, or any unexpected problems, contact your Primary Care Provider. Call [facility] ([phone]) or report to the closest Emergency Room. Call 911 if necessary. 06/20/23 0802 <Electronically signed by Jakob Nowak DO> Cosigner Signature (if applicable): CC: Dr. Rosa Maria Santacruz MD ~ Signed [facility] Work Phone: 1(815) 341-516312-20-2023 Progress note Author Warren Sampson [facility] June 18, 2023 3:02pm Note Date/Time June 18, 2023 2:47pm [facility] [address] [place] [address] Progress Note - Wound Care 06/18/23 1440 MR#: [id number] Acct: [id number] Name: ROSAMARIAAMAURY MAR Rep #:[id number] : 1940 82 From: Warren Wallace PM PCP: Dr. Paco Norman MD Status:R EG RCR Location: ADDENDUM by DPM Dr. Warren Sampson on 06/18/23 at 1502 Addendum This is an addendum to today's note dated 06/18/2023, time 1501. At the time ofthe patient exiting the wound care center he had tripped over the carpet while at the checkout desk. Patient was lifted to his feet by Dr. Sampson and nursing staff. Patient was questioned about presenting to the emergency room for admission, the patient immediately declined and said no. He still understands that he is at great risk if he leaves the wound care center today. Patient is aware and will present to the emergency room if needed. He left wound care center on his own. 06/18/23 1502<Electronically signed by Warren Sampson DPM> Cosigner Signature (if applicable): cc: ~* Signed History of Present Illness Date of Service: 06/18/23 Chief Complaint: Left foot ulcerations History of Wound: Chronic wounds left foot self treatment as well as SNF treatment Subjective Subjective Mr. Blank is a 82-year-old male presenting to the wound care center today for follow-up and evaluation of bilateral leg ulceration. Patient states she has been seen by home health care for dressing changes. Patient states that he did fall in his kitchen when he turned quickly and looked up losing his balance. Patient did not lose consciousness but states he may have hit his face as he hasa bruise on his face. He denies seeing any black spots or scars. He denies being unconscious. He did not come to the emergency room for treatment. Patient is currently living alone and does not have family in the area. When questioned today in office and asked if he needs to go to the emergency room thepatient declined. He states that he is okay but understands that if it does happen again he will present to the emergency room for admission for neurological evaluation and consultation for Dr. Sampson to evaluate his ulcerations in the operating room. He denies any constitutional symptoms. No other pedal complaints at this time. Objective Data Objective Data Vital Signs: Vital Signs Temp Pulse Resp BP O2 Del Method 97.1 F L 58 L 20 H 135/66 H Room Air 06/11/23 11:37 06/18/23 13:53 06/18/23 13:53 06/18/23 13:53 06/18/23 13:53 Oxygen Delivery Method Room Air Lab / Micro Data Micro: Microbiology 06/04/23 11:49 Wound - Leg, Right Gram Stain - Final 06/04/23 11:49 Wound - Leg, Right Wound Culture - Final Klebsiella pneumoniae sp pneum Meth. resistant Staph. aureus Corynebacterium striatum Pseudomonas aeruginosa 06/04/23 11:49 Wound - Leg, Right Anaerobic Culture - Final No anaerobic bacteria isolated. Physical Exam Narrative Vascular: DP and PT pulses are faintly palpable. CFT is delayed. Evidence of hemosiderin deposits appreciated bilateral lower extremity. Skin temperature great is warm to warm from proximal ankle to distal digit. Nonpitting edema appreciated to the right lower extremity. No focal increase noted. Neurological: Light touch intact. Epic or station is diminished. Patient does not respond to painful stimuli. Dermatological: Full-thickness ulceration appreciated to the left heel with fibrogranular tissue. Wound measures after debridement 0.7 x 2.0 x 0.1 cm. Evidence of full-thickness ulceration secondary to laceration to anterior aspectof the right leg. Right leg central ulceration measures 4.5 x 1.5 x 0.2 cm, inferior ulceration measures 0.3 x 0.9 x 0.2 cm, proximal medial leg measures 5.0 x 2.0 x 0.4 cm. No evidence of probe to bone however there are new proximalmedial right leg wound probes to muscle. Evidence of blanchable erythema to theright leg. Excisional debridement with 5 mm dermal curette down to and including subcutaneous tissue to the right anterior leg ulceration without incident. Predebridement measurement is 4.3 x 1.3 x 0.1 cm. Post right measurement is 4.5x 1.5 x 0.2 cm. Excisional debridement with 5 mm dermal curette down to and including subcutaneous tissue to the right inferior leg ulceration without incident. Predebridement measurement is 1.0 x 0.6 x 0.1 cm. Post right measurement is 1.3x 0.9 x 0.2 cm. Excisional debridement with 5 mm dermal curette down to and including subcutaneous tissue, fascia and muscle to the right proximal medial leg ulceration without incident. Predebridement measurement is 4.8 x 1.5 x 0.3 cm. Post right measurement is 5.0 x 2.0 x 0.4 cm. Excisional debridement with 5 mm dermal curette down to and including subcutaneous tissue to the left heel without incident. Predebridement measurement is 0.6 x 1.8 x 0.1 cm. Postdebridement measurement is 0.7 x 2.0 x 0.1 cm. EpiFix 18 mm graft was applied to the left heel full-thickness ulceration with 100% use. Eighth application. The graft site was free and clear of any infection. The wound/skin graft substitute was dressed with nonadherent bandagesecured in place with Steri-Strips followed by bolster dressing as well as a single layer Tubigrip. Musculoskeletal: No pain on palpation or with sharp debridement to both ulcerations to the left foot. No pain with calf compression. Debridement Note Debridement Note Debridement Free Text: Excisional debridement with 5 mm dermal curette down to and including subcutaneous tissue to the right anterior leg ulceration without incident. Predebridement measurement is 4.3 x 1.3 x 0.1 cm. Post right measurement is 4.5 x 1.5 x 0.2 cm. Excisional debridement with 5 mm dermal curette down to and including subcutaneous tissue to the right inferior leg ulceration without incident. Predebridement measurement is 1.0 x 0.6 x 0.1 cm. Post right measurement is 1.3x 0.9 x 0.2 cm. Excisional debridement with 5 mm dermal curette down to and including subcutaneous tissue, fascia and muscle to the right proximal medial leg ulceration without incident. Predebridement measurement is 4.8 x 1.5 x 0.3 cm. Post right measurement is 5.0 x 2.0 x 0.4 cm. Excisional debridement with 5 mm dermal curette down to and including subcutaneous tissue to the left heel without incident. Predebridement measurement is 0.6 x 1.8 x 0.1 cm. Postdebridement measurement is 0.7 x 2.0 x 0.1 cm. EpiFix 18 mm graft was applied to the left heel full-thickness ulceration with 100% use. Eighth application. The graft site was free and clear of any infection. The wound/skin graft substitute was dressed with nonadherent bandagesecured in place with Steri-Strips followed by bolster dressing as well as a single layer Tubigrip. Post-Debridement Measurements and Additional Note: Post-Debridement Measurements/Treatment WC - Nurse 1 - General Ulcer Assessment Start: 06/04/23 11:28 Freq: Status: Active Protocol: GE Activity Type Activity Date Activity User E-sign Co-sign Detail Recorded Client Recorded Date Recorded By Document 06/04/23 11:30 DL Desktop 06/04/23 11:37 DL Document 06/11/23 11:37 DL Desktop 06/11/23 11:48 DL Document 06/18/23 13:53 KW Desktop 06/18/23 14:08 KW 06/04/23 06/11/23 06/18/23 11:30 11:37 13:53 WC - Today's Visit Information Type of service Follow-up Visit Follow-up Visit Follow-up Visit (Physician/BOAT REPAIRER (Physician/BOAT REPAIRER (Physician/BOAT REPAIRER ) ) ) Arrival Mode Ambulatory, Ambulatory, Ambulatory, Walker Walker Walker Transfer Assistance None None Patient Identification Verified (Name & Yes Yes Yes ) Patient Requires Transmission-Based No No Precautions Vital Signs Temperature (97.8 F-99.1 F) 97 F L 97.1 F L Temperature Source Temporal Temporal Pulse Rate (60-100) 74 71 58 L Pulse Location Monitor Monitor Respiratory Rate (12-18) 18 18 20 H Respiratory rate source Observation Observation Observation Oxygen Delivery Method Room Air Blood Pressure (90/60-120/80) 140/62 H 139/62 H 135/66 H Blood Pressure Mean (mm Hg) 88 87 89 Source Monitor Monitor Monitor Position Sitting Blood Pressure Location Left Arm History Since Last Visit- (Skip if this is Patient's initial visit) Have you changed medications since your No No No last visit? Any new allergies or adverse reactions No No No Had a fall/change in ADL's that may No No No increase risk of falls Signs or symptoms of abuse and/or No No No neglect since last visit Have you been in the hospital since your No No No last visit? Has dressing in place as prescribed Yes Yes Yes Has compression in place as prescribed N/A Yes N/A Has offloadiing in place as prescribed Yes N/A N/A Experienced any changes in pain level or No No No management Left Footwear Slipper Regular Shoe Right Footwear Slipper Regular Shoe Pain Scale: 0-10 Numeric Is Patient Pain Free? Yes Yes Yes WC - Nurse 1 - General Ulcer Measurement Start: 06/04/23 11:28 Freq: Status: Active Protocol: Activity Type Activity Date Activity User E-sign Co-sign Detail Recorded Client Recorded Date Recorded By Document 06/04/23 11:30 DL Desktop 06/04/23 11:37 DL Document 06/11/23 11:37 DL Desktop 06/11/23 11:48 DL Document 06/18/23 13:53 KW Desktop 06/18/23 14:08 KW 06/04/23 06/11/23 06/18/23 11:30 11:37 13:53 Wound Center Nurse 1 #5 R Hodgson, Inf -Current Size (cm) - Length 1.4 1.2 -Current Size (cm) - Width 0.6 0.6 -Current Size (cm) - Depth 0.2 0.1 -Total Square Cm 0.84 0.72 -Photo Taken Yes -Exudate Amt Small Large -Exudate Type Serosanguineous -Wound Margin Distinct, Distinct, Outline Outline Attached Attached -Granulation Amt Large (67-100%) -Granulation Quality Red -Necrosis Amt Small (1-33%) Large (67-100%) -Necrotic Tissue Type Adherent Slough Adherent Slough -Structure Exposed N/A -Texture (Adelina-wound Skin Appearance) Scarring Assessed -Moisture (Adelina-wound Skin Appearance) Dry/Scaly Assessed -Color (Adelina-wound Skin Appearance) Hemosiderin Assessed Staining -Temperature (Adelina-wound Skin No Abnormality No Abnormality Appearance) (Pt Warm) (Pt Warm) -Tenderness on Palpation (Adelina-wound No Skin Appearance) -Ulcer Cleansing Soap and Water Soap and Water -Foul Odor after Cleansing No No -Anesthetic Used 5% Lidocaine 4% Lidocaine Gel Solution #4 R Med LE/ Trauma -Current Size (cm) - Length 5.6 5.3 -Current Size (cm) - Width 3.5 4.4 -Current Size (cm) - Depth 0.4 0.4 -Total Square Cm 19.60 23.32 -Photo Taken Yes -Undermining/Tunneling Starts (O'clock 1 ) -Undermining/Tunneling Ends (O'clock) 3 -Maximum Distance (cm) 0.9 -Exudate Amt Medium Medium -Exudate Type Serosanguineous Serosanguineous -Wound Margin Distinct, Distinct, Outline Outline Attached Attached -Granulation Amt None Present (0 Medium (34-66%) %) -Granulation Quality Red -Necrosis Amt Medium (34-66%) Medium (34-66%) -Necrotic Tissue Type Adherent Slough Eschar -Structure Exposed N/A -Texture (Adelina-wound Skin Appearance) Localized Edema Assessed ,Scarring -Moisture (Adelina-wound Skin Appearance) Dry/Scaly Assessed -Color (Adelina-wound Skin Appearance) Erythema, Assessed Hemosiderin Staining -Temperature (Adelina-wound Skin No Abnormality No Abnormality Appearance) (Pt Warm) (Pt Warm) -Ulcer Cleansing Soap and Water Soap and Water -Foul Odor after Cleansing No -Anesthetic Used 5% Lidocaine 4% Lidocaine Gel Solution #3 R Hodgson -Current Size (cm) - Length 4.2 4.4 4.3 -Current Size (cm) - Width 1.9 1 1.4 -Current Size (cm) - Depth 0.2 0.1 0.3 -Total Square Cm 7.98 4.4 6.02 -Photo Taken Yes -Classification - Thickness Full Thickness without Exposed Support Structure -Exudate Amt Medium Medium Medium -Exudate Type Serosanguineous Serosanguineous Serosanguineous -Wound Margin Distinct, Distinct, Distinct, Outline Outline Outline Attached Attached Attached -Granulation Amt Medium (34-66%) None Present (0 Medium (34-66%) %) -Granulation Quality Red Red -Necrosis Amt Medium (34-66%) Large (67-100%) Small (1-33%) -Necrotic Tissue Type Adherent Slough Adherent Slough Adherent Slough -Structure Exposed N/A N/A -Texture (Adelina-wound Skin Appearance) Scarring Scarring Assessed -Moisture (Adelina-wound Skin Appearance) Dry/Scaly Dry/Scaly Assessed -Color (Adelina-wound Skin Appearance) Hemosiderin Hemosiderin Assessed Staining Staining -Temperature (Adelina-wound Skin No Abnormality No Abnormality Appearance) (Pt Warm) (Pt Warm) -Tenderness on Palpation (Adelina-wound No Skin Appearance) -Ulcer Cleansing Soap and Water Soap and Water Soap and Water -Foul Odor after Cleansing No No -Anesthetic Used 5% Lidocaine 5% Lidocaine 4% Lidocaine Gel Gel Solution #2 L Heel -Current Size (cm) - Length 1.8 1.4 1.4 -Current Size (cm) - Width 1.7 0.5 0.2 -Current Size (cm) - Depth 0.1 0.1 0.1 -Total Square Cm 3.06 0.70 0.28 -Exudate Amt Medium Medium Medium -Exudate Type Serosanguineous Serosanguineous Serosanguineous -Wound Margin Distinct, Distinct, Distinct, Outline Outline Outline Attached Attached Attached -Granulation Amt Small (1-33%) Medium (34-66%) Medium (34-66%) -Granulation Quality Pale [place] -Necrosis Amt Large (67-100%) Medium (34-66%) Small (1-33%) -Necrotic Tissue Type Adherent Slough Adherent Slough Adherent Slough -Structure Exposed N/A N/A -Texture (Adelina-wound Skin Appearance) Scarring Callus,Scarring Assessed -Moisture (Adelina-wound Skin Appearance) Dry/Scaly Assessed -Color (Adelina-wound Skin Appearance) Hemosiderin Hemosiderin Assessed Staining Staining -Temperature (Adelina-wound Skin No Abnormality No Abnormality Appearance) (Pt Warm) (Pt Warm) -Ulcer Cleansing Soap and Water Soap and Water Soap and Water -Foul Odor after Cleansing No -Anesthetic Used 5% Lidocaine 5% Lidocaine 4% Lidocaine Gel Gel,Cetacaine Solution Right Calf (cm) 33.6 36.5 Right Ankle (cm) 20.8 21.7 Left Calf (cm) 34.2 34.6 Left Ankle (cm) 19.5 21.1 WC - Nurse 2 - General Ulcer CM Notes Start: 06/04/23 11:28 Freq: Status: Active Protocol: Activity Type Activity Date Activity User E-sign Co-sign Detail Recorded Client Recorded Date Recorded By Document 06/04/23 12:09 Laptop 06/04/23 12:16 Document 06/11/23 11:54 Desktop 06/11/23 12:07 Document 06/18/23 14:20 Laptop 06/18/23 14:36 06/04/23 06/11/23 06/18/23 12:09 11:54 14:20 Wound Center Nurse 2 #5 R Hodgson, Inf -Time 11:57 14:23 -Correct Patient Yes Yes -Correct Side, Site, Position Yes Yes -Correct Procedure Yes Yes -Procedure Performed Yes Yes -Type of Procedure Debridement Debridement -Clinical Debridement Subcutaneous Subcutaneous -Tissue Removed Subcutaneous Subcutaneous -Post Debridement (cm) - Length 2.0 1.3 -Post Debridement (cm) - Width 0.5 0.9 -Post Debridement (cm) - Depth 0.1 0.2 -Total Square (Post) (cm) 1.00 1.17 -Area of Debridement (cm) - Length 2.0 1.3 -Area of Debridement (cm) - Width 0.5 0.9 -Total Square (Area) (cm) 1.00 1.17 -Tunneling No No -Undermining/Tunneling No No -Circular Undermining No No -Wound/Ulcer Outcome Not Healed Not Healed -Ulcer Cleansing Rinsed/ Rinsed/ Irrigated with Irrigated with Saline Saline -Foul Odor after Cleansing No No -Bioengineered Tissue No No -Bleeding Controlled with Pressure Pressure -Treatment Response Procedure Procedure Tolerated Well Tolerated Well -Offloading No No -Debridement - Subq, 1st 20sq cm Yes No #4 R Med LE/ Trauma -Time 11:57 14:24 -Correct Patient Yes Yes -Correct Side, Site, Position Yes Yes -Correct Procedure Yes Yes -Procedure Performed Yes Yes -Type of Procedure Debridement Debridement -Clinical Debridement Muscle / Fascia Muscle / Fascia -Tissue Removed Muscle,Fascia Muscle,Fascia -Post Debridement (cm) - Length 5.0 5.0 -Post Debridement (cm) - Width 1.2 2.0 -Post Debridement (cm) - Depth 1.5 0.4 -Total Square (Post) (cm) 6.00 10.00 -Area of Debridement (cm) - Length 5.0 5.0 -Area of Debridement (cm) - Width 1.2 2.0 -Total Square (Area) (cm) 6.00 10.00 -Tunneling No No -Undermining/Tunneling No No -Circular Undermining No No -Wound/Ulcer Outcome Not Healed Not Healed -Ulcer Cleansing Rinsed/ Rinsed/ Irrigated with Irrigated with Saline Saline -Foul Odor after Cleansing No No -Bioengineered Tissue No No -Bleeding Controlled with Pressure Pressure -Treatment Response Procedure Procedure Tolerated Well Tolerated Well -Offloading No No -Debridement - Subq, 1st 20sq cm No -Debridement - Muscle / Fascia, 1st Yes Yes 20sq cm #3 R Hodgson -Time 12:10 11:57 14:25 -Correct Patient Yes Yes Yes -Correct Side, Site, Position Yes Yes Yes -Correct Procedure Yes Yes Yes -Procedure Performed Yes Yes Yes -Type of Procedure Debridement Debridement Debridement -Clinical Debridement Subcutaneous Subcutaneous Subcutaneous -Tissue Removed Subcutaneous Subcutaneous Subcutaneous -Post Debridement (cm) - Length 4.5 4.5 4.5 -Post Debridement (cm) - Width 1.5 1.0 1.5 -Post Debridement (cm) - Depth 0.2 0.1 0.2 -Total Square (Post) (cm) 6.75 4.50 6.75 -Area of Debridement (cm) - Length 4.5 4.5 4.5 -Area of Debridement (cm) - Width 1.5 1.0 1.5 -Total Square (Area) (cm) 6.75 4.50 6.75 -Tunneling No No No -Undermining/Tunneling No No No -Circular Undermining No No No -Wound/Ulcer Outcome Not Healed Not Healed Not Healed -Ulcer Cleansing Rinsed/ Rinsed/ Rinsed/ Irrigated with Irrigated with Irrigated with Saline Saline Saline -Foul Odor after Cleansing No No No -Bioengineered Tissue No No No -Bleeding Controlled with Pressure Pressure Pressure -Treatment Response Procedure Procedure Procedure Tolerated Well Tolerated Well Tolerated Well -Offloading No No -Debridement - Subq, 1st 20sq cm Yes No Yes #2 L Heel -Time 12:14 11:58 14:26 -Correct Patient Yes Yes Yes -Correct Side, Site, Position Yes Yes Yes -Correct Procedure Yes Yes Yes -Procedure Performed Yes Yes Yes -Type of Procedure Debridement Debridement Debridement -Clinical Debridement Subcutaneous Subcutaneous Subcutaneous -Tissue Removed Subcutaneous Subcutaneous Subcutaneous -Post Debridement (cm) - Length 1 0.8 2.0 -Post Debridement (cm) - Width 1.9 2.0 0.7 -Post Debridement (cm) - Depth 0.1 0.1 0.1 -Total Square (Post) (cm) 1.9 1.60 1.40 -Area of Debridement (cm) - Length 1 0.8 2.0 -Area of Debridement (cm) - Width 1.9 2.0 0.7 -Total Square (Area) (cm) 1.9 1.60 1.40 -Tunneling No No No -Undermining/Tunneling No No No -Circular Undermining No No No -Wound/Ulcer Outcome Not Healed Not Healed Not Healed -Ulcer Cleansing Rinsed/ Rinsed/ Rinsed/ Irrigated with Irrigated with Irrigated with Saline Saline Saline -Foul Odor after Cleansing No No No -Bioengineered Tissue Yes Yes Yes -Type of Bioengineered Tissue Epifix Epifix Epifix 18mm Disc -Expiration Date 02/29/28 12/29/27 02/29/28 -Product Lot Number [id number] -Percent Used 100 100 100 -Lot number of Saline Used [id number] -Bleeding Controlled with Pressure Pressure Pressure -Treatment Response Procedure Procedure Procedure Tolerated Well Tolerated Well Tolerated Well -Offloading No No No -Type of Offloading Surgical Shoe -Assistive Device(s) Walker -Debridement - Subq, 1st 20sq cm No No No -Apply Skin Sub - 1st 25 sq cm - Feet 1 1 1 -Epifix (per sq cm) 4 4 -Epifix 18mm Disc 3 Pain Scale: 0-10 Numeric Is Patient Pain Free? Yes Yes Yes - Nurse 3 - General Ulcer D/C NN Start: 06/04/23 11:28 Freq: Status: Active Protocol: Activity Type Activity Date Activity User E-sign Co-sign Detail Recorded Client Recorded Date Recorded By Document 06/04/23 11:57 Desktop 06/04/23 11:59 Document 06/11/23 12:10 Desktop 06/11/23 12:12 06/04/23 06/11/23 11:57 12:10 Wound Care Center Nurse 3 #5 R Hodgson, Inf -Ulcer Cleansing Rinsed/ Irrigated with Saline -Foul Odor after Cleansing No -Primary Dressing Applied C Hydrogel ($) -Primary Dressing Covered/Secured with Dry Gauze & Roll Gauze, Secured with Tape #4 R Med LE/ Trauma -Ulcer Cleansing Rinsed/ Irrigated with Saline -Foul Odor after Cleansing No -Other Dressing betadine -Primary Dressing Covered/Secured with Dry Gauze & Roll Gauze, Secured with Tape #3 R Hodgson -Other Dressing SANTYL -Primary Dressing Covered/Secured with Dry Gauze & Dry Gauze,Dry Roll Gauze, Gauze & Roll Secured with Gauze,Secured Tape with Tape #2 L Heel -Ulcer Cleansing Rinsed/ Irrigated with Saline -Foul Odor after Cleansing No -Primary Dressing Covered/Secured with Dry Gauze & Dry Gauze & Roll Gauze, Roll Gauze, Secured with Secured with Tape Tape BLE -Tubular Bandage Single Layer Single Layer -Size of Tubigrip Used Size E Size E -Size E ($) 2 2 Pain Scale: 0-10 Numeric Is Patient Pain Free? 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 All findings were discussed with the patient. All questions were answered to the patient's satisfaction. Excisional debridement with 5 mm dermal curette down to and including subcutaneous tissue to the right anterior leg ulceration without incident. Predebridement measurement is 4.3 x 1.3 x 0.1 cm. Post right measurement is 4.5x 1.5 x 0.2 cm. Excisional debridement with 5 mm dermal curette down to and including subcutaneous tissue to the right inferior leg ulceration without incident. Predebridement measurement is 1.0 x 0.6 x 0.1 cm. Post right measurement is 1.3x 0.9 x 0.2 cm. Excisional debridement with 5 mm dermal curette down to and including subcutaneous tissue, fascia and muscle to the right proximal medial leg ulceration without incident. Predebridement measurement is 4.8 x 1.5 x 0.3 cm. Post right measurement is 5.0 x 2.0 x 0.4 cm. Excisional debridement with 5 mm dermal curette down to and including subcutaneous tissue to the left heel without incident. Predebridement measurement is 0.6 x 1.8 x 0.1 cm. Postdebridement measurement is 0.7 x 2.0 x 0.1 cm. EpiFix 18 mm graft was applied to the left heel full-thickness ulceration with 100% use. Eighth application. The graft site was free and clear of any infection. The wound/skin graft substitute was dressed with nonadherent bandagesecured in place with Steri-Strips followed by bolster dressing as well as a single layer Tubigrip. The proximal right leg ulceration and skin flap was secured in place with Steri-Strips followed by Betadine soaked gauze, the central and inferior right ulcerations were dressed with Santyl and saline wet gauze followed by double layer Tubigrip. The patient will have home care change dressings twice per week. It was overly stressed with the patient understanding, that if he continues to feel unsafe or falls at his house [facility] and to get Dr. Sampson consulted so that he may take him to the operating room for OR debridement. The patient was understanding of this. At the time of questioningin regards to presenting to the operating room today. The patient declined. Follow-up 1 week (2) Non-pressure chronic ulcer of unspecified part of right lower leg with fat layer exposed: CODE(S): L97.912 - Non-pressure chronic ulcer of unspecified part of rightlower leg with fat layer exposed (3) Cellulitis of right leg: CODE(S): L03.115 - Cellulitis of right lower limb PLAN: Continue antibiotics as written. (4) Edema: CODE(S): R60.9 - Edema, unspecified (5) Non-pressure 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: CODE(S): L97.422 - Non-pressure 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 06/18/23 1447 <Electronically signed by Warren Sampson DPM> Cosigner Signature (if applicable): CC: ~ Signed [facility] Work Phone: [phone] Progress note Author Warren Sampson [facility] June 11, 2023 1:04pm Note Date/Time June 11, 2023 1:04pm [facility] [address] [place] [id number] Progress Note - Wound Care 06/11/23 1254 MR#: [id number] Acct: [id number] Name: AMAURY BLANK Rep #:[id number] : 1940 82 From: Warren MARTINEZ PCP: Dr. Paco Norman MD Status:R EG RCR Location: History of Present Illness Date of Service: 06/11/23 Chief Complaint: Left foot ulcerations History of Wound: Chronic wounds left foot self treatment as well as SNF treatment Subjective Subjective Mr. Blank is a 82-year-old male presenting to the wound care center today for follow-up and evaluation of application of skin graft substitute to the left heel as well as evaluation of the right hodgson ulceration secondary to trauma. Patient states that he was seen in the emergency department at [facility] on 06/06/2023 secondary to a fall where he created a large laceration tothe proximal aspect of his right leg. Patient was seen by emergency rooms doctors evaluated and discharged home. Today the patient presents for evaluation of bilateral leg wounds. He does admit to trauma. He denies constitutional symptoms. No other pedal complaints at this time. Objective Data Objective Data Vital Signs: Vital Signs Temp Pulse Resp BP 97.1 F L 71 18 139/62 H 06/11/23 11:37 06/11/23 11:37 06/11/23 11:37 06/11/23 11:37 Lab / Micro Data Micro: Microbiology 06/04/23 11:49 Wound - Leg, Right Gram Stain - Final 06/04/23 11:49 Wound - Leg, Right Wound Culture - Final Klebsiella pneumoniae sp pneum Meth. resistant Staph. aureus Corynebacterium striatum Pseudomonas aeruginosa 06/04/23 11:49 Wound - Leg, Right Anaerobic Culture - Final No anaerobic bacteria isolated. Physical Exam Narrative Vascular: DP and PT pulses are faintly palpable. CFT is delayed. Evidence of hemosiderin deposits appreciated bilateral lower extremity. Skin temperature great is warm to warm from proximal ankle to distal digit. Nonpitting edema appreciated to the right lower extremity. No focal increase noted. Neurological: Light touch intact. Epic or station is diminished. Patient does not respond to painful stimuli. Dermatological: Full-thickness ulceration appreciated to the left heel with fibrogranular tissue. Wound measures after debridement 0.8 x 2.0 x 0.1 cm. Evidence of full-thickness ulceration secondary to laceration to anterior aspectof the right leg. Right leg central ulceration measures 4.5 x 1.0 x 0.1 cm, inferior ulceration measures 2.0 x 0.5 x 0.1 cm, proximal medial leg measures 5.0 x 1.2 x 0.5 cm. No evidence of probe to bone however there are new proximalmedial right leg wound probes to muscle. Evidence of blanchable erythema to theright leg. Excisional debridement with Misonix down to and including subcutaneous tissue tothe right anterior leg ulceration without incident. Predebridement measurement is 4.0 x 1.0 x 0.1 cm. Post right measurement is 4.5 x 1.0 x 0.1 cm. Excisional debridement with Misonix down to and including subcutaneous tissue tothe right inferior leg ulceration without incident. Predebridement measurement is 1.8 x 0.4 x 0.1 cm. Post right measurement is 2.0 x 0.5 x 0.1 cm. Excisional debridement with Misonix down to and including subcutaneous tissue, fascia and muscle to the right proximal medial leg ulceration without incident. Predebridement measurement is 4.8 x 1.0 x 0.3 cm. Post right measurement is 5.0x 1.2 x 0.5 cm. Excisional debridement with Misonix down to and including subcutaneous tissue tothe left heel without incident. Predebridement measurement is 0.7 x 0.6 x 0.1 cm. Postdebridement measurement is 0.8 x 2.0 x 0.1 cm. EpiFix 2.0 x 2.0 cm graft was applied to the left heel full-thickness ulcerationwith 100% use. Seventh application. The graft site was free and clear of any infection. The wound/skin graft substitute was dressed with nonadherent bandagesecured in place with Steri-Strips followed by bolster dressing as well as a single layer Tubigrip. Musculoskeletal: No pain on palpation or with sharp debridement to both ulcerations to the left foot. No pain with calf compression. Debridement Note Debridement Note Debridement Free Text: Excisional debridement with Misonix down to and includingsubcutaneous tissue to the right anterior leg ulceration without incident. Predebridement measurement is 4.0 x 1.0 x 0.1 cm. Post right measurement is 4.5x 1.0 x 0.1 cm. Excisional debridement with Misonix down to and including subcutaneous tissue tothe right inferior leg ulceration without incident. Predebridement measurement is 1.8 x 0.4 x 0.1 cm. Post right measurement is 2.0 x 0.5 x 0.1 cm. Excisional debridement with Misonix down to and including subcutaneous tissue, fascia and muscle to the right proximal medial leg ulceration without incident. Predebridement measurement is 4.8 x 1.0 x 0.3 cm. Post right measurement is 5.0x 1.2 x 0.5 cm. Excisional debridement with Misonix down to and including subcutaneous tissue tothe left heel without incident. Predebridement measurement is 0.7 x 0.6 x 0.1 cm. Postdebridement measurement is 0.8 x 2.0 x 0.1 cm. EpiFix 2.0 x 2.0 cm graft was applied to the left heel full-thickness ulcerationwith 100% use. Seventh application. The graft site was free and clear of any infection. The wound/skin graft substitute was dressed with nonadherent bandagesecured in place with Steri-Strips followed by bolster dressing as well as a single layer Tubigrip. Post-Debridement Measurements and Additional Note: Post-Debridement Measurements/Treatment - Nurse 1 - General Ulcer Assessment Start: 06/04/23 11:28 Freq: Status: Active Protocol: GE Activity Type Activity Date Activity User E-sign Co-sign Detail Recorded Client Recorded Date Recorded By Document 06/04/23 11:30 DL Desktop 06/04/23 11:37 DL Document 06/11/23 11:37 DL Desktop 06/11/23 11:48 DL 06/04/23 06/11/23 11:30 11:37 - Today's Visit Information Type of service Follow-up Visit Follow-up Visit (Physician/BOAT REPAIRER (Physician/BOAT REPAIRER ) ) Arrival Mode Ambulatory, Ambulatory, Walker Walker Transfer Assistance None None Patient Identification Verified (Name & Yes Yes ) Patient Requires Transmission-Based No Precautions Vital Signs Temperature (97.8 F-99.1 F) 97 F L 97.1 F L Temperature Source Temporal Temporal Pulse Rate (60-100) 74 71 Pulse Location Monitor Respiratory Rate (12-18) 18 18 Respiratory rate source Observation Observation Blood Pressure (90/60-120/80) 140/62 H 139/62 H Blood Pressure Mean (mm Hg) 88 87 Source Monitor Monitor History Since Last Visit- (Skip if this is Patient's initial visit) Have you changed medications since your No No last visit? Any new allergies or adverse reactions No No Had a fall/change in ADL's that may No No increase risk of falls Signs or symptoms of abuse and/or No No neglect since last visit Have you been in the hospital since your No No last visit? Has dressing in place as prescribed Yes Yes Has compression in place as prescribed N/A Yes Has offloadiing in place as prescribed Yes N/A Experienced any changes in pain level or No No management Left Footwear Slipper Right Footwear Slipper Pain Scale: 0-10 Numeric Is Patient Pain Free? Yes Yes WC - Nurse 1 - General Ulcer Measurement Start: 06/04/23 11:28 Freq: Status: Active Protocol: Activity Type Activity Date Activity User E-sign Co-sign Detail Recorded Client Recorded Date Recorded By Document 06/04/23 11:30 DL Desktop 06/04/23 11:37 DL Document 06/11/23 11:37 DL Desktop 06/11/23 11:48 DL 06/04/23 06/11/23 11:30 11:37 Wound Center Nurse 1 #5 R Hodgson, Inf -Current Size (cm) - Length 1.4 -Current Size (cm) - Width 0.6 -Current Size (cm) - Depth 0.2 -Total Square Cm 0.84 -Photo Taken Yes -Exudate Amt Small -Wound Margin Distinct, Outline Attached -Granulation Amt Large (67-100%) -Granulation Quality Red -Necrosis Amt Small (1-33%) -Necrotic Tissue Type Adherent Slough -Structure Exposed N/A -Texture (Adelina-wound Skin Appearance) Scarring -Moisture (Adelina-wound Skin Appearance) Dry/Scaly -Color (Adelina-wound Skin Appearance) Hemosiderin Staining -Temperature (Adelina-wound Skin No Abnormality Appearance) (Pt Warm) -Tenderness on Palpation (Adelina-wound No Skin Appearance) -Ulcer Cleansing Soap and Water -Foul Odor after Cleansing No -Anesthetic Used 5% Lidocaine Gel #4 R Med LE/ Trauma -Current Size (cm) - Length 5.6 -Current Size (cm) - Width 3.5 -Current Size (cm) - Depth 0.4 -Total Square Cm 19.60 -Photo Taken Yes -Undermining/Tunneling Starts (O'clock 1 ) -Undermining/Tunneling Ends (O'clock) 3 -Maximum Distance (cm) 0.9 -Exudate Amt Medium -Exudate Type Serosanguineous -Wound Margin Distinct, Outline Attached -Granulation Amt None Present (0 %) -Necrosis Amt Medium (34-66%) -Necrotic Tissue Type Adherent Slough -Structure Exposed N/A -Texture (Adelina-wound Skin Appearance) Localized Edema ,Scarring -Moisture (Adelina-wound Skin Appearance) Dry/Scaly -Color (Adelina-wound Skin Appearance) Erythema, Hemosiderin Staining -Temperature (Adelina-wound Skin No Abnormality Appearance) (Pt Warm) -Ulcer Cleansing Soap and Water -Foul Odor after Cleansing No -Anesthetic Used 5% Lidocaine Gel #3 R Hodgson -Current Size (cm) - Length 4.2 4.4 -Current Size (cm) - Width 1.9 1 -Current Size (cm) - Depth 0.2 0.1 -Total Square Cm 7.98 4.4 -Photo Taken Yes -Classification - Thickness Full Thickness without Exposed Support Structure -Exudate Amt Medium Medium -Exudate Type Serosanguineous Serosanguineous -Wound Margin Distinct, Distinct, Outline Outline Attached Attached -Granulation Amt Medium (34-66%) None Present (0 %) -Granulation Quality Red -Necrosis Amt Medium (34-66%) Large (67-100%) -Necrotic Tissue Type Adherent Slough Adherent Slough -Structure Exposed N/A N/A -Texture (Adelina-wound Skin Appearance) Scarring Scarring -Moisture (Adelina-wound Skin Appearance) Dry/Scaly Dry/Scaly -Color (Adelina-wound Skin Appearance) Hemosiderin Hemosiderin Staining Staining -Temperature (Adelina-wound Skin No Abnormality No Abnormality Appearance) (Pt Warm) (Pt Warm) -Tenderness on Palpation (Adelina-wound No Skin Appearance) -Ulcer Cleansing Soap and Water Soap and Water -Foul Odor after Cleansing No No -Anesthetic Used 5% Lidocaine 5% Lidocaine Gel Gel #2 L Heel -Current Size (cm) - Length 1.8 1.4 -Current Size (cm) - Width 1.7 0.5 -Current Size (cm) - Depth 0.1 0.1 -Total Square Cm 3.06 0.70 -Exudate Amt Medium Medium -Exudate Type Serosanguineous Serosanguineous -Wound Margin Distinct, Distinct, Outline Outline Attached Attached -Granulation Amt Small (1-33%) Medium (34-66%) -Granulation Quality Pale -Necrosis Amt Large (67-100%) Medium (34-66%) -Necrotic Tissue Type Adherent Slough Adherent Slough -Structure Exposed N/A N/A -Texture (Adelina-wound Skin Appearance) Scarring Callus,Scarring -Moisture (Adelina-wound Skin Appearance) Dry/Scaly -Color (Adelina-wound Skin Appearance) Hemosiderin Hemosiderin Staining Staining -Temperature (Adelina-wound Skin No Abnormality No Abnormality Appearance) (Pt Warm) (Pt Warm) -Ulcer Cleansing Soap and Water Soap and Water -Foul Odor after Cleansing No -Anesthetic Used 5% Lidocaine 5% Lidocaine Gel Gel,Cetacaine Right Calf (cm) 33.6 Right Ankle (cm) 20.8 Left Calf (cm) 34.2 Left Ankle (cm) 19.5 WC - Nurse 2 - General Ulcer CM Notes Start: 06/04/23 11:28 Freq: Status: Active Protocol: Activity Type Activity Date Activity User E-sign Co-sign Detail Recorded Client Recorded Date Recorded By Document 06/04/23 12:09 Laptop 06/04/23 12:16 Document 06/11/23 11:54 Desktop 06/11/23 12:07 06/04/23 06/11/23 12:09 11:54 Wound Center Nurse 2 #5 Calvin Hodgson, Inf -Time 11:57 -Correct Patient Yes -Correct Side, Site, Position Yes -Correct Procedure Yes -Procedure Performed Yes -Type of Procedure Debridement -Clinical Debridement Subcutaneous -Tissue Removed Subcutaneous -Post Debridement (cm) - Length 2.0 -Post Debridement (cm) - Width 0.5 -Post Debridement (cm) - Depth 0.1 -Total Square (Post) (cm) 1.00 -Area of Debridement (cm) - Length 2.0 -Area of Debridement (cm) - Width 0.5 -Total Square (Area) (cm) 1.00 -Tunneling No -Undermining/Tunneling No -Circular Undermining No -Wound/Ulcer Outcome Not Healed -Ulcer Cleansing Rinsed/ Irrigated with Saline -Foul Odor after Cleansing No -Bioengineered Tissue No -Bleeding Controlled with Pressure -Treatment Response Procedure Tolerated Well -Offloading No -Debridement - Subq, 1st 20sq cm Yes #4 R Med LE/ Trauma -Time 11:57 -Correct Patient Yes -Correct Side, Site, Position Yes -Correct Procedure Yes -Procedure Performed Yes -Type of Procedure Debridement -Clinical Debridement Muscle / Fascia -Tissue Removed Muscle,Fascia -Post Debridement (cm) - Length 5.0 -Post Debridement (cm) - Width 1.2 -Post Debridement (cm) - Depth 1.5 -Total Square (Post) (cm) 6.00 -Area of Debridement (cm) - Length 5.0 -Area of Debridement (cm) - Width 1.2 -Total Square (Area) (cm) 6.00 -Tunneling No -Undermining/Tunneling No -Circular Undermining No -Wound/Ulcer Outcome Not Healed -Ulcer Cleansing Rinsed/ Irrigated with Saline -Foul Odor after Cleansing No -Bioengineered Tissue No -Bleeding Controlled with Pressure -Treatment Response Procedure Tolerated Well -Offloading No -Debridement - Subq, 1st 20sq cm No -Debridement - Muscle / Fascia, 1st Yes 20sq cm #3 R Hodgson -Time 12:10 11:57 -Correct Patient Yes Yes -Correct Side, Site, Position Yes Yes -Correct Procedure Yes Yes -Procedure Performed Yes Yes -Type of Procedure Debridement Debridement -Clinical Debridement Subcutaneous Subcutaneous -Tissue Removed Subcutaneous Subcutaneous -Post Debridement (cm) - Length 4.5 4.5 -Post Debridement (cm) - Width 1.5 1.0 -Post Debridement (cm) - Depth 0.2 0.1 -Total Square (Post) (cm) 6.75 4.50 -Area of Debridement (cm) - Length 4.5 4.5 -Area of Debridement (cm) - Width 1.5 1.0 -Total Square (Area) (cm) 6.75 4.50 -Tunneling No No -Undermining/Tunneling No No -Circular Undermining No No -Wound/Ulcer Outcome Not Healed Not Healed -Ulcer Cleansing Rinsed/ Rinsed/ Irrigated with Irrigated with Saline Saline -Foul Odor after Cleansing No No -Bioengineered Tissue No No -Bleeding Controlled with Pressure Pressure -Treatment Response Procedure Procedure Tolerated Well Tolerated Well -Offloading No -Debridement - Subq, 1st 20sq cm Yes No #2 L Heel -Time 12:14 11:58 -Correct Patient Yes Yes -Correct Side, Site, Position Yes Yes -Correct Procedure Yes Yes -Procedure Performed Yes Yes -Type of Procedure Debridement Debridement -Clinical Debridement Subcutaneous Subcutaneous -Tissue Removed Subcutaneous Subcutaneous -Post Debridement (cm) - Length 1 0.8 -Post Debridement (cm) - Width 1.9 2.0 -Post Debridement (cm) - Depth 0.1 0.1 -Total Square (Post) (cm) 1.9 1.60 -Area of Debridement (cm) - Length 1 0.8 -Area of Debridement (cm) - Width 1.9 2.0 -Total Square (Area) (cm) 1.9 1.60 -Tunneling No No -Undermining/Tunneling No No -Circular Undermining No No -Wound/Ulcer Outcome Not Healed Not Healed -Ulcer Cleansing Rinsed/ Rinsed/ Irrigated with Irrigated with Saline Saline -Foul Odor after Cleansing No No -Bioengineered Tissue Yes Yes -Type of Bioengineered Tissue Epifix Epifix -Expiration Date 02/29/28 12/29/27 -Product Lot Number [id number] -Percent Used 100 100 -Lot number of Saline Used [id number] -Bleeding Controlled with Pressure Pressure -Treatment Response Procedure Procedure Tolerated Well Tolerated Well -Offloading No No -Type of Offloading Surgical Shoe -Assistive Device(s) Walker -Debridement - Subq, 1st 20sq cm No No -Apply Skin Sub - 1st 25 sq cm - Feet 1 1 -Epifix (per sq cm) 4 4 Pain Scale: 0-10 Numeric Is Patient Pain Free? Yes Yes WC - Nurse 3 - General Ulcer D/C NN Start: 06/04/23 11:28 Freq: Status: Active Protocol: Activity Type Activity Date Activity User E-sign Co-sign Detail Recorded Client Recorded Date Recorded By Document 06/04/23 11:57 KW Desktop 06/04/23 11:59 KW Document 06/11/23 12:10 Desktop 06/11/23 12:12 06/04/23 06/11/23 11:57 12:10 Wound Care Center Nurse 3 #5 R Hodgson, Inf -Ulcer Cleansing Rinsed/ Irrigated with Saline -Foul Odor after Cleansing No -Primary Dressing Applied C Hydrogel ($) -Primary Dressing Covered/Secured with Dry Gauze & Roll Gauze, Secured with Tape #4 R Med LE/ Trauma -Ulcer Cleansing Rinsed/ Irrigated with Saline -Foul Odor after Cleansing No -Other Dressing betadine -Primary Dressing Covered/Secured with Dry Gauze & Roll Gauze, Secured with Tape #3 R Hodgson -Other Dressing SANTYL -Primary Dressing Covered/Secured with Dry Gauze & Dry Gauze,Dry Roll Gauze, Gauze & Roll Secured with Gauze,Secured Tape with Tape #2 L Heel -Ulcer Cleansing Rinsed/ Irrigated with Saline -Foul Odor after Cleansing No -Primary Dressing Covered/Secured with Dry Gauze & Dry Gauze & Roll Gauze, Roll Gauze, Secured with Secured with Tape Tape BLE -Tubular Bandage Single Layer Single Layer -Size of Tubigrip Used Size E Size E -Size E ($) 2 2 Pain Scale: 0-10 Numeric Is Patient Pain Free? 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 All findings were discussed with the patient. All questions were answered to the patient satisfaction. Excisional debridement with Misonix down to and including subcutaneous tissue tothe right anterior leg ulceration without incident. Predebridement measurement is 4.0 x 1.0 x 0.1 cm. Post right measurement is 4.5 x 1.0 x 0.1 cm. Excisional debridement with Misonix down to and including subcutaneous tissue tothe right inferior leg ulceration without incident. Predebridement measurement is 1.8 x 0.4 x 0.1 cm. Post right measurement is 2.0 x 0.5 x 0.1 cm. Excisional debridement with Misonix down to and including subcutaneous tissue, fascia and muscle to the right proximal medial leg ulceration without incident. Predebridement measurement is 4.8 x 1.0 x 0.3 cm. Post right measurement is 5.0x 1.2 x 0.5 cm. Excisional debridement with Misonix down to and including subcutaneous tissue tothe left heel without incident. Predebridement measurement is 0.7 x 0.6 x 0.1 cm. Postdebridement measurement is 0.8 x 2.0 x 0.1 cm. EpiFix 2.0 x 2.0 cm graft was applied to the left heel full-thickness ulcerationwith 100% use. Seventh application. The graft site was free and clear of any infection. The wound/skin graft substitute was dressed with nonadherent bandagesecured in place with Steri-Strips followed by bolster dressing as well as a single layer Tubigrip. The right lower extremity was dressed to the central and inferior ulcerations Santyl wet-to-dry, the proximal right medial leg wound was dressed with Betadine wet-to-dry, dry sterile dressing and a single Tubigrip was done to the left lower extremity. The left heel was dressed as stated above. The patient will continue to have home health care for dressing changes and evaluation. The patient will continue to take his oral antibiotics as written. Educated thepatient that if his wound is not better in approximately 1 week to the proximal medial aspect of the right leg I recommend the patient to be admitted to the hospital under medicine for workup and medical clearance so that I may take the patient to the operating room to remove the possible necrotic skin to the right proximal leg apply graft as well as a wound VAC and get the patient pre-CERT forSNF secondary to living alone. The patient was understanding of this. Follow-up in 1 week. (2) Laceration of right lower extremity: CODE(S): S81.811A - Laceration without foreign body, right lower leg, initial encounter (3) Non-pressure chronic ulcer of unspecified part of right lower leg with fat layer exposed: CODE(S): L97.912 - Non-pressure chronic ulcer of unspecified part of rightlower leg with fat layer exposed (4) Non-pressure 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: CODE(S): L97.422 - Non-pressure 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 (5) Edema: CODE(S): R60.9 - Edema, unspecified (6) Cellulitis of right leg: CODE(S): L03.115 - Cellulitis of right lower limb 06/11/23 1304 <Electronically signed by Warren Sampson DPM> Cosigner Signature (if applicable): CC: ~ Signed [facility] Work Phone: [phone]) 206-503512-08-2023 Hospital Discharge instructions Additional Instructions Follow-up with your primary care physician for wound check in 3 to 5 days. You may also follow-up with the wound center to follow the wound until it has healed.[facility] Work Phone: 1(307) 559-881012-06-2023 Progress note Author Warren Sampson [facility] June 04, 2023 1:52pm Note Date/Time June 04, 2023 1 :52pm [facility] [address] [place] [address] Progress Note - Wound Care 06/04/23 1346 MR#: [id number] Acct: [id number] Name: AMAURY BLANK Rep #:[id number] : 1940 82 From: Warrne Sampson D PM PCP: Dr. Paco Norman MD Status:R EG RCR Location: History of Present Illness Date of Service: 06/04/23 Chief Complaint: Left foot ulcerations History of Wound: Chronic wounds left foot self treatment as well as SNF treatment Subjective Subjective Mr. Blank is a 82-year-old male presenting for follow-up to the wound care center of left heel ulcer. Patient has been getting EpiFix to the area with great improvement. He presents today for additional application. He reports tohitting his left hodgson over the bed rail 2 weeks ago. No treatment thus far. Denies constitutional symptoms. He is kept his dressing clean dry and intact. No other pedal complaints at this time. Objective Data Objective Data Vital Signs: Vital Signs Temp Pulse Resp BP 97 F L 74 18 140/62 H 06/04/23 11:30 06/04/23 11:30 06/04/23 11:30 06/04/23 11:30 Physical Exam Narrative Vascular: DP and PT pulses are faintly palpable. CFT is delayed. Evidence of hemosiderin deposits appreciated bilateral lower extremity. Skin temperature great is warm to warm from proximal ankle to distal digit. Nonpitting edema appreciated to the right lower extremity. No focal increase noted. Neurological: Light touch intact. Epic or station is diminished. Patient does not respond to painful stimuli. Dermatological: Full-thickness ulceration appreciated to the left heel with fibrogranular tissue. Wound measures after debridement 1.0 x 2.0 x 0.1 cm. Evidence of full-thickness ulceration secondary to laceration to anterior aspectof the right leg. Right leg ulceration measures 4.5 x 1.2 x 0.2 cm. Evidence of blanchable erythema to the right leg. Excisional debridement down to and including subcutaneous tissue with a #5 minimally dermal curette to the right anterior leg ulceration without incident. Predebridement measurement is 4.0 x 1.0 x 0.1 cm. Post right measurement is 4.5x 1.2 x 0.2 cm. Excisional debridement down to and including subcutaneous tissue with a number 5mm dermal curette to the left heel without incident. Predebridement measurementis 0.9 x 0.8 x 0.1 cm. Postdebridement measurement is 1.0 x 1.9 x 0.1 cm. EpiFix 2.0 x 2.0 cm graft was applied to the left heel full-thickness ulcerationwith 100% use. Sixth application. The graft site was free and clear of any infection. The wound/skin graft substitute was dressed with nonadherent bandage secured in place with Steri-Strips followed by bolster dressing as well as a single layer Tubigrip. Musculoskeletal: No pain on palpation or with sharp debridement to both ulcerations to the left foot. No pain with calf compression. Debridement Note Debridement Note Debridement Free Text: Excisional debridement down to and including subcutaneoustissue with a #5 minimally dermal curette to the right anterior leg ulceration without incident. Predebridement measurement is 4.0 x 1.0 x 0.1 cm. Post rightmeasurement is 4.5 x 1.2 x 0.2 cm. Excisional debridement down to and including subcutaneous tissue with a number 5mm dermal curette to the left heel without incident. Predebridement measurementis 0.9 x 0.8 x 0.1 cm. Postdebridement measurement is 1.0 x 1.9 x 0.1 cm. EpiFix 2.0 x 2.0 cm graft was applied to the left heel full-thickness ulcerationwith 100% use. Sixth application. The graft site was free and clear of any infection. The wound/skin graft substitute was dressed with nonadherent bandagesecured in place with Steri-Strips followed by bolster dressing as well as a single layer Tubigrip. 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 Any new allergies or adverse reactions No Had a fall/change in ADL's that may No increase risk of falls Signs or symptoms of abuse and/or No neglect since last visit Have you been in the hospital since your No last visit? Has dressing in place as prescribed Yes Has compression in place as prescribed N/A Has offloadiing in place as prescribed Yes Experienced any changes in pain level or No management Left Footwear Slipper Right Footwear Slipper Pain Scale: 0-10 Numeric Is Patient Pain Free? Yes - Nurse 1 - General Ulcer Measurement Start: 06/04/23 11:28 Freq: Status: Active Protocol: Activity Type Activity Date Activity User E-sign Co-sign Detail Recorded Client Recorded Date Recorded By Document 06/04/23 11:30 DL [employer] 06/04/23 11:37 DL 06/04/23 11:30 Wound Center Nurse 1 #3 R Hodgson -Current Size (cm) - Length 4.2 -Current Size (cm) - Width 1.9 -Current Size (cm) - Depth 0.2 -Total Square Cm 7.98 -Photo Taken Yes -Classification - Thickness Full Thickness without Exposed Support Structure -Exudate Amt Medium -Exudate Type Serosanguineous -Wound Margin Distinct, Outline Attached -Granulation Amt Medium (34-66%) -Granulation Quality Red -Necrosis Amt Medium (34-66%) -Necrotic Tissue Type Adherent Slough -Structure Exposed N/A -Texture (Adelina-wound Skin Appearance) Scarring -Moisture (Adelina-wound Skin Appearance) Dry/Scaly -Color (Adelina-wound Skin Appearance) Hemosiderin Staining -Temperature (Adelina-wound Skin No Abnormality Appearance) (Pt Warm) -Tenderness on Palpation (Adelina-wound No Skin Appearance) -Ulcer Cleansing Soap and Water -Foul Odor after Cleansing No -Anesthetic Used 5% Lidocaine Gel #2 L Heel -Current Size (cm) - Length 1.8 -Current Size (cm) - Width 1.7 -Current Size (cm) - Depth 0.1 -Total Square Cm 3.06 -Exudate Amt Medium -Exudate Type Serosanguineous -Wound Margin Distinct, Outline Attached -Granulation Amt Small (1-33%) -Necrosis Amt Large (67-100%) -Necrotic Tissue Type Adherent Slough -Structure Exposed N/A -Texture (Adelina-wound Skin Appearance) Scarring -Moisture (Adelina-wound Skin Appearance) Dry/Scaly -Color (Adelina-wound Skin Appearance) Hemosiderin Staining -Temperature (Adelina-wound Skin No Abnormality Appearance) (Pt Warm) -Ulcer Cleansing Soap and Water -Foul Odor after Cleansing No -Anesthetic Used 5% Lidocaine Gel WC - Nurse 2 - General Ulcer CM Notes Start: 06/04/23 11:28 Freq: Status: Active Protocol: Activity Type Activity Date Activity User E-sign Co-sign Detail Recorded Client Recorded Date Recorded By Document 06/04/23 12:09 Laptop 06/04/23 12:16 06/04/23 12:09 Wound Center Nurse 2 #3 R Hodgson -Time 12:10 -Correct Patient Yes -Correct Side, Site, Position Yes -Correct Procedure Yes -Procedure Performed Yes -Type of Procedure Debridement -Clinical Debridement Subcutaneous -Tissue Removed Subcutaneous -Post Debridement (cm) - Length 4.5 -Post Debridement (cm) - Width 1.5 -Post Debridement (cm) - Depth 0.2 -Total Square (Post) (cm) 6.75 -Area of Debridement (cm) - Length 4.5 -Area of Debridement (cm) - Width 1.5 -Total Square (Area) (cm) 6.75 -Tunneling No -Undermining/Tunneling No -Circular Undermining No -Wound/Ulcer Outcome Not Healed -Ulcer Cleansing Rinsed/ Irrigated with Saline -Foul Odor after Cleansing No -Bioengineered Tissue No -Bleeding Controlled with Pressure -Treatment Response Procedure Tolerated Well -Debridement - Subq, 1st 20sq cm Yes #2 L Heel -Time 12:14 -Correct Patient Yes -Correct Side, Site, Position Yes -Correct Procedure Yes -Procedure Performed Yes -Type of Procedure Debridement -Clinical Debridement Subcutaneous -Tissue Removed Subcutaneous -Post Debridement (cm) - Length 1 -Post Debridement (cm) - Width 1.9 -Post Debridement (cm) - Depth 0.1 -Total Square (Post) (cm) 1.9 -Area of Debridement (cm) - Length 1 -Area of Debridement (cm) - Width 1.9 -Total Square (Area) (cm) 1.9 -Tunneling No -Undermining/Tunneling No -Circular Undermining No -Wound/Ulcer Outcome Not Healed -Ulcer Cleansing Rinsed/ Irrigated with Saline -Foul Odor after Cleansing No -Bioengineered Tissue Yes -Type of Bioengineered Tissue Epifix -Expiration Date 02/29/28 -Product Lot Number [id number] -Percent Used 100 -Lot number of Saline Used [id number] -Bleeding Controlled with Pressure -Treatment Response Procedure Tolerated Well -Offloading No -Type of Offloading Surgical Shoe -Debridement - Subq, 1st 20sq cm No -Apply Skin Sub - 1st 25 sq cm - Feet 1 -Epifix (per sq cm) 4 Pain Scale: 0-10 Numeric Is Patient Pain Free? Yes WC - Nurse 3 - General Ulcer D/C NN Start: 06/04/23 11:28 Freq: Status: Active Protocol: Activity Type Activity Date Activity User E-sign Co-sign Detail Recorded Client Recorded Date Recorded By Document 06/04/23 11:57 KW Desktop 06/04/23 11:59 KW 06/04/23 11:57 Wound Care Center Nurse 3 #3 R Hodgson -Other Dressing SANTYL -Primary Dressing Covered/Secured with Dry Gauze & Roll Gauze, Secured with Tape #2 L Heel -Primary Dressing Covered/Secured with Dry Gauze & Roll Gauze, Secured with Tape BLE -Tubular Bandage Single Layer -Size of Tubigrip Used Size E -Size E ($) 2 Pain Scale: 0-10 Numeric Is Patient Pain Free? Yes WC - Visit Discharge Discharge Condition Stable Ambulatory Status Ambulatory Transportation Private Auto Medication Reconcilliation completed & No provided to patient/care provider Clinical Summary of Care Provided Yes Assessment/Plan Assessment/Plan (1) Non-pressure 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: CODE(S): L97.422 - Non-pressure 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 PLAN: Patient was examined and evaluated. All findings were discussed with the patient. All questions were answered to the patient's satisfaction. Excisional debridement down to and including subcutaneous tissue with a #5 minimally dermal curette to the right anterior leg ulceration without incident. Predebridement measurement is 4.0 x 1.0 x 0.1 cm. Post right measurement is 4.5x 1.2 x 0.2 cm. Excisional debridement down to and including subcutaneous tissue with a number 5mm dermal curette to the left heel without incident. Predebridement measurementis 0.9 x 0.8 x 0.1 cm. Postdebridement measurement is 1.0 x 1.9 x 0.1 cm. EpiFix 2.0 x 2.0 cm graft was applied to the left heel full-thickness ulcerationwith 100% use. Sixth application. The graft site was free and clear of any infection. The wound/skin graft substitute was dressed with nonadherent bandagesecured in place with Steri-Strips followed by bolster dressing as well as a single layer Tubigrip. Culture of the new right leg ulceration was taken. Will place the patient on antibiotics if needed. The right lower extremity was dressed with Santyl, moist to 4 x 4 dry sterile dressing and a single layer Tubigrip was applied. Follow-up 1 week. (2) Non-pressure chronic ulcer of unspecified part of right lower leg with fat layer exposed: CODE(S): L97.912 - Non-pressure chronic ulcer of unspecified part of rightlower leg with fat layer exposed (3) Cellulitis of right leg: CODE(S): L03.115 - Cellulitis of right lower limb (4) Edema: CODE(S): R60.9 - Edema, unspecified (5) Peripheral vascular disease: CODE(S): I73.9 - Peripheral vascular disease, unspecified 06/04/23 1352 <Electronically signed by Warren Sampson DPM> Cosigner Signature (if applicable): CC: ~ Signed [facility] Work Phone: 1(127) 820-387911-22-2023 Progress note Author Warren Sampson [facility] May 21, 2023 2:30pm Note Date/Time May 21, 2023 2:30pm [facility] [address] [place] [id number] Progress Note - Wound Care 05/21/23 1427 MR#: [id number] Acct: [id number] Name: AMAURY BLANK Rep #:[id number] : 1940 82 From: Warren Sampson D PM PCP: Dr. Paco Norman MD Status:R EG RCR Location: History of Present Illness Date of Service: 05/21/23 Chief Complaint: Left foot ulcerations History of Wound: Chronic wounds left foot self treatment as well as SNF treatment Subjective Subjective Mr. Blank is a 82-year-old male presenting for follow-up to the wound care center of left heel ulcer. Patient has been getting EpiFix to the area with great improvement. He presents today for additional application. He denies trauma. Denies constitutional symptoms. He is kept his dressing clean dry and intact. No other pedal complaints at this time. Objective Data Objective Data Vital Signs: Vital Signs Temp Pulse Resp BP O2 Del Method 97.2 F L 57 L 18 143/50 H Room Air 05/21/23 13:21 05/21/23 13:21 05/21/23 13:21 05/21/23 13:21 05/21/23 13:21 Oxygen Delivery Method Room Air Physical Exam Narrative Vascular: DP and PT pulses are faintly palpable. CFT is delayed. Evidence of hemosiderin deposits appreciated bilateral lower extremity. Skin temperature great is warm to warm from proximal ankle to distal digit. No focal increase noted. Neurological: Light touch intact. Epic or station is diminished. Patient does not respond to painful stimuli. Dermatological: Full-thickness ulceration appreciated to the left heel with fibrogranular tissue. Wound measures after debridement 1.0 x 2.0 x 0.1 cm. Theleft dorsal wound was debrided with a 5 mm dermal curette. Dorsal wound measures healed. Excisional debridement with Mixonix of the left heel ulceration down to and including subcutaneous tissue with the number 5 mm dermal curette without incident. Predebridement measurement is 0.8 x 1.7 x 0.1 cm. Postdebridement measurement is 1.0 x 2.0 x 0.1 cm. EpiFix 2.0 x 2.0 cm graft was applied to the left heel full-thickness ulcerationwith 100% use. Fifth application. The graft site was free and clear of any infection. The wound/skin graft substitute was dressed with nonadherent bandagesecured in place with Steri-Strips followed by bolster dressing as well as a single layer Tubigrip. Musculoskeletal: No pain on palpation or with sharp debridement to both ulcerations to the left foot. No pain with calf compression. Debridement Note Debridement Note Debridement Free Text: Excisional debridement with Mixonix of the left heel ulceration down to and including subcutaneous tissue with the number 5 mm dermalcurette without incident. Predebridement measurement is 0.8 x 1.7 x 0.1 cm. Postdebridement measurement is 1.0 x 2.0 x 0.1 cm. EpiFix 2.0 x 2.0 cm graft was applied to the left heel full-thickness ulcerationwith 100% use. Fifth application. The graft site was free and clear of any infection. The wound/skin graft substitute was dressed with nonadherent bandagesecured in place with Steri-Strips followed by bolster dressing as well as a single layer Tubigrip. Post-Debridement Measurements and Additional Note: Post-Debridement Measurements/Treatment STEVE - Nurse 1 - General Ulcer Assessment Start: 04/30/23 09:55 Freq: Status: Active Protocol: SURYAEXT Activity Type Activity Date Activity User E-sign Co-sign Detail Recorded Client Recorded Date Recorded By Document 04/30/23 09:57 KW [id number] 04/30/23 10:07 KW Document 05/07/23 13:29 KW Desktop 05/07/23 13:37 KW Document 05/14/23 14:28 NRL Desktop 05/14/23 14:36 NRL Document 05/21/23 13:21 GM Desktop 05/21/23 13:29 04/30/23 05/07/23 05/14/23 09:57 13:29 14:28 - Today's Visit Information Type of service Follow-up Visit Follow-up Visit Follow-up Visit (Physician/BOAT REPAIRER (Physician/BOAT REPAIRER (Physician/BOAT REPAIRER ) ) ) Arrival Mode Ambulatory, Ambulatory, Ambulatory, Walker Walker Walker Transfer Assistance Patient Identification Verified (Name & Yes Yes Yes ) Patient Requires Transmission-Based Precautions Safety Precautions Vital Signs Temperature (97.8 F-99.1 F) 96.9 F L 96.5 F L 96.9 F L Temperature Source Temporal Temporal Temporal Pulse Rate (60-100) 62 59 L 62 Pulse Location Monitor Monitor Monitor Respiratory Rate (12-18) 20 H 20 H 16 Respiratory rate source Observation Observation Observation Oxygen Delivery Method Room Air Room Air Room Air Blood Pressure (90/60-120/80) 155/70 H 150/59 H 112/55 L Blood Pressure Mean (mm Hg) 98 89 74 Source Monitor Monitor Monitor Position Semi-Fowlers Sitting Sitting Blood Pressure Location Left Arm Left Arm Left Arm History Since Last Visit- (Skip if this is Patient's initial visit) Have you changed medications since your No No No last visit? Any new allergies or adverse reactions No No No Had a fall/change in ADL's that may No No No increase risk of falls Signs or symptoms of abuse and/or No No neglect since last visit Have you been in the hospital since your No No last visit? Has dressing in place as prescribed Yes Yes Has compression in place as prescribed No No Has offloadiing in place as prescribed No Experienced any changes in pain level or No No management Left Footwear Regular Shoe Surgical Shoe Surgical Shoe with pressure with pressure relief insole relief insole Right Footwear Regular Shoe Regular Shoe Regular Shoe Pain Scale: 0-10 Numeric Is Patient Pain Free? Yes Yes Yes 05/21/23 13:21 WC - Today's Visit Information Type of service Follow-up Visit (Physician/BOAT REPAIRER ) Arrival Mode Ambulatory, Walker Transfer Assistance None Patient Identification Verified (Name & Yes ) Patient Requires Transmission-Based No Precautions Safety Precautions Fall Prevention Vital Signs Temperature (97.8 F-99.1 F) 97.2 F L Temperature Source Temporal Pulse Rate (60-100) 57 L Pulse Location Monitor Respiratory Rate (12-18) 18 Respiratory rate source Observation Oxygen Delivery Method Room Air Blood Pressure (90/60-120/80) 143/50 H Blood Pressure Mean (mm Hg) 81 Source Monitor Position Sitting Blood Pressure Location Left Arm History Since Last Visit- (Skip if this is Patient's initial visit) Have you changed medications since your No last visit? Any new allergies or adverse reactions No Had a fall/change in ADL's that may No increase risk of falls Signs or symptoms of abuse and/or No neglect since last visit Have you been in the hospital since your No last visit? Has dressing in place as prescribed Has compression in place as prescribed N/A Has offloadiing in place as prescribed N/A Experienced any changes in pain level or No management Left Footwear Right Footwear Regular Shoe Pain Scale: 0-10 Numeric Is Patient Pain Free? Yes - Nurse 1 - General Ulcer Measurement Start: 04/30/23 09:55 Freq: Status: Active Protocol: Activity Type Activity Date Activity User E-sign Co-sign Detail Recorded Client Recorded Date Recorded By Document 05/07/23 13:29 Desktop 05/07/23 13:37 KW Document 05/14/23 14:28 NR Desktop 05/14/23 14:36 NR Document 05/21/23 13:21 Desktop 05/21/23 13:29 05/07/23 05/14/23 05/21/23 13:29 14:28 13:21 Wound Center Nurse 1 #1 L Dorsal foot -Ulcer Cleansing Rinsed/ Irrigated with Saline -Anesthetic Used 5% Lidocaine Gel -Wound Comment(s) scabbed #2 L Heel -Combined with other wound No -Current Size (cm) - Length 1.7 0.2 1.3 -Current Size (cm) - Width 1.6 1.4 2.0 -Current Size (cm) - Depth 0.1 0.1 0.1 -Total Square Cm 2.72 0.28 2.60 -Date of Last Picture (Recall this 05/14/23 field) -Epithelialization Medium 34-66% Medium 34-66% -Tunneling No No -Undermining/Tunneling No No -Circular Undermining No -Change in Wound Grade/Stage No -Exudate Amt Small Medium Medium -Exudate Type Serosanguineous Serosanguineous Yellow/Green -Wound Margin Distinct, Flat & Intact Distinct, Outline Outline Attached Attached -Granulation Amt Medium (34-66%) Large (67-100%) Medium (34-66%) -Granulation Quality [place] -Slough/Fibrin Yes -Necrosis Amt Small (1-33%) Small (1-33%) Small (1-33%) -Necrotic Tissue Type Adherent Slough Adherent Slough Adherent Slough -Structure Exposed None/Limited to Skin Breakdown -Texture (Adelina-wound Skin Appearance) Assessed,Callus Assessed,Callus Assessed ,Scarring -Moisture (Adelina-wound Skin Appearance) Assessed,Dry/ Assessed Assessed Scaly -Color (Adelina-wound Skin Appearance) Assessed Assessed Assessed -Temperature (Adelina-wound Skin No Abnormality No Abnormality No Abnormality Appearance) (Pt Warm) (Pt Warm) (Pt Warm) -Tenderness on Palpation (Adelina-wound No Skin Appearance) -Ulcer Cleansing Rinsed/ Wound Cleanser Soap and Water Irrigated with Saline -Foul Odor after Cleansing No Yes, Due to Product Use -Anesthetic Used 5% Lidocaine 5% Lidocaine 5% Lidocaine Gel Gel Gel WC - Nurse 2 - General Ulcer CM Notes Start: 04/30/23 09:55 Freq: Status: Active Protocol: Activity Type Activity Date Activity User E-sign Co-sign Detail Recorded Client Recorded Date Recorded By Document 04/30/23 10:11 Laptop 04/30/23 10:18 Document 05/07/23 13:43 Laptop 05/07/23 13:49 Document 05/14/23 14:52 Laptop 05/14/23 14:58 04/30/23 05/07/23 05/14/23 10:11 13:43 14:52 Wound Center Nurse 2 #1 L Dorsal foot -Time 10:17 -Correct Patient Yes No -Correct Side, Site, Position Yes No -Correct Procedure Yes No -Procedure Performed Yes No -Type of Procedure Debridement -Clinical Debridement Subcutaneous -Tissue Removed Subcutaneous -Post Debridement (cm) - Length 0.1 0 -Post Debridement (cm) - Width 0.1 0 -Post Debridement (cm) - Depth 0.1 0 -Total Square (Post) (cm) 0.01 0 -Area of Debridement (cm) - Length 0.1 0 -Area of Debridement (cm) - Width 0.1 0 -Total Square (Area) (cm) 0.01 0 -Tunneling No -Undermining/Tunneling No -Circular Undermining No -Wound/Ulcer Outcome Not Healed Healed- Epithelialized -Foul Odor after Cleansing No -Bioengineered Tissue No -Bleeding Controlled with Pressure -Treatment Response Procedure Tolerated Well -Offloading No -Debridement - Subq, 1st 20sq cm Yes #2 L Heel -Time 10:11 13:44 14:57 -Correct Patient Yes Yes Yes -Correct Side, Site, Position Yes Yes Yes -Correct Procedure Yes Yes Yes -Procedure Performed Yes Yes Yes -Type of Procedure Debridement Debridement Debridement -Clinical Debridement Subcutaneous Subcutaneous Subcutaneous -Tissue Removed Subcutaneous Subcutaneous Subcutaneous -Post Debridement (cm) - Length 1.3 2.2 2.4 -Post Debridement (cm) - Width 2.5 1.1 1.2 -Post Debridement (cm) - Depth 0.1 0.1 0.1 -Total Square (Post) (cm) 3.25 2.42 2.88 -Area of Debridement (cm) - Length 1.3 2.2 2.4 -Area of Debridement (cm) - Width 2.5 1.1 1.2 -Total Square (Area) (cm) 3.25 2.42 2.88 -Tunneling No No No -Undermining/Tunneling No No No -Circular Undermining No No No -Wound/Ulcer Outcome Not Healed Not Healed Not Healed -Ulcer Cleansing Rinsed/ Rinsed/ Rinsed/ Irrigated with Irrigated with Irrigated with Saline Saline Saline -Foul Odor after Cleansing No No No -Bioengineered Tissue Yes Yes Yes -Type of Bioengineered Tissue Epifix Epifix Epifix -Expiration Date 12/29/27 12/29/27 12/29/27 -Product Lot Number [id number] -Percent Used 100 100 100 -Lot number of Saline Used [id number] -Bleeding Controlled with Pressure Pressure Pressure -Treatment Response Procedure Procedure Procedure Tolerated Well Tolerated Well Tolerated Well -Offloading No Yes Yes -Type of Offloading Surgical Shoe Surgical Shoe -Debridement - Subq, 1st 20sq cm No No No -Apply Skin Sub - 1st 25 sq cm - Feet 1 1 1 -Epifix (per sq cm) 4 4 4 Pain Scale: 0-10 Numeric Is Patient Pain Free? Yes Yes Yes - Nurse 3 - General Ulcer D/C NN Start: 04/30/23 09:55 Freq: Status: Active Protocol: Activity Type Activity Date Activity User E-sign Co-sign Detail Recorded Client Recorded Date Recorded By Document 04/30/23 10:24 KW Desktop 04/30/23 10:25 KW 04/30/23 10:24 Wound Care Center Nurse 3 #1 L Dorsal foot -Ulcer Cleansing Rinsed/ Irrigated with Saline -Primary Dressing Covered/Secured with Dry Gauze & Roll Gauze, Secured with Tape #2 L Heel -Ulcer Cleansing Rinsed/ Irrigated with Saline -Primary Dressing Covered/Secured with Dry Gauze & Roll Gauze, Secured with Tape Pain Scale: 0-10 Numeric Is Patient Pain Free? Yes WC - Visit Discharge Discharge Condition Stable Ambulatory Status Walker Transportation Private Auto Medication Reconcilliation completed & No provided to patient/care provider Clinical Summary of Care Provided Yes Assessment/Plan Assessment/Plan (1) Non-pressure 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: CODE(S): L97.422 - Non-pressure 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 PLAN: Patient was examined evaluated. All findings were discussed with patient. All questions were answered to patient satisfaction. Excisional debridement with Mixonix of the left heel ulceration down to and including subcutaneous tissue with the number 5 mm dermal curette without incident. Predebridement measurement is 0.8 x 1.7 x 0.1 cm. Postdebridement measurement is 1.0 x 2.0 x 0.1 cm. EpiFix 2.0 x 2.0 cm graft was applied to the left heel full-thickness ulcerationwith 100% use. Fifth application. The graft site was free and clear of any infection. The wound/skin graft substitute was dressed with nonadherent bandagesecured in place with Steri-Strips followed by bolster dressing as well as a single layer Tubigrip. Follow-up in 1 week. (2) Peripheral vascular disease: CODE(S): I73.9 - Peripheral vascular disease, unspecified 05/21/23 1430 <Electronically signed by Warren Sampson DPM> Cosigner Signature (if applicable): CC: ~ Signed [facility] Work Phone: [phone]) 208-536411-15-2023 Progress note Author Warren Sampson [facility] May 14, 2023 4:25pm Note Date/Time May 14, 2023 4:25pm [facility] [address] [place] [address] Progress Note - Wound Care 05/14/23 1621 MR#: [id number] Acct: [id number] Name: AMAURY BLANK Rep #:[id number] : 1940 82 From: Warren Wallace PM PCP: Dr. Paco Norman MD Status:R EG RCR Location: History of Present Illness Date of Service: 05/14/23 Chief Complaint: Left foot ulcerations History of Wound: Chronic wounds left foot self treatment as well as SNF treatment Subjective Subjective Mr. Blank is a 82-year-old male presenting for follow-up to the wound care center of left heel ulcer. Patient has been getting EpiFix to the area with great improvement. He presents today for additional application. He denies trauma. Denies constitutional symptoms. He is kept his dressing clean dry and intact. No other pedal complaints at this time. Objective Data Objective Data Vital Signs: Vital Signs Temp Pulse Resp BP O2 Del Method 96.9 F L 62 16 112/55 L Room Air 05/14/23 14:28 05/14/23 14:28 05/14/23 14:28 05/14/23 14:28 05/14/23 14:28 Oxygen Delivery Method Room Air Physical Exam Narrative Vascular: DP and PT pulses are faintly palpable. CFT is delayed. Evidence of hemosiderin deposits appreciated bilateral lower extremity. Skin temperature great is warm to warm from proximal ankle to distal digit. No focal increase noted. Neurological: Light touch intact. Epic or station is diminished. Patient does not respond to painful stimuli. Dermatological: Full-thickness ulceration appreciated to the left heel with fibrogranular tissue. Wound measures after debridement 1.2 x 2.4 x 0.1 cm. Theleft dorsal wound was debrided with a 5 mm dermal curette. Dorsal wound measures healed. Excisional debridement of the left heel ulceration down to and including subcutaneous tissue with the number 5 mm dermal curette without incident. Predebridement measurement is 1.0 x 2.0 x 0.1 cm. Postdebridement measurement is 1.2 x 2.4 x 0.1 cm. EpiFix 2.0 x 2.0 cm graft was applied to the left heel full-thickness ulcerationwith 100% use. Fourth application. The graft site was free and clear of any infection. The wound/skin graft substitute was dressed with nonadherent bandagesecured in place with Steri-Strips followed by bolster dressing as well as a single layer Tubigrip. Musculoskeletal: No pain on palpation or with sharp debridement to both ulcerations to the left foot. No pain with calf compression. Debridement Note Debridement Note Debridement Free Text: Excisional debridement of the left heel ulceration down to and including subcutaneous tissue with the number 5 mm dermal curette withoutincident. Predebridement measurement is 1.0 x 2.0 x 0.1 cm. Postdebridement measurement is 1.2 x 2.4 x 0.1 cm. EpiFix 2.0 x 2.0 cm graft was applied to the left heel full-thickness ulcerationwith 100% use. Fourth application. The graft site was free and clear of any infection. The wound/skin graft substitute was dressed with nonadherent bandagesecured in place with Steri-Strips followed by bolster dressing as well as a single layer Tubigrip. Post-Debridement Measurements and Additional Note: Post-Debridement Measurements/Treatment WC - Nurse 1 - General Ulcer Assessment Start: 04/30/23 09:55 Freq: Status: Active Protocol: GE Activity Type Activity Date Activity User E-sign Co-sign Detail Recorded Client Recorded Date Recorded By Document 04/30/23 09:57 KW [id number] 04/30/23 10:07 KW Document 05/07/23 13:29 KW Desktop 05/07/23 13:37 KW Document 05/14/23 14:28 NRL Desktop 05/14/23 14:36 NRL 04/30/23 05/07/23 05/14/23 09:57 13:29 14:28 - Today's Visit Information Type of service Follow-up Visit Follow-up Visit Follow-up Visit (Physician/BOAT REPAIRER (Physician/BOAT REPAIRER (Physician/BOAT REPAIRER ) ) ) Arrival Mode Ambulatory, Ambulatory, Ambulatory, Walker Walker Walker Patient Identification Verified (Name & Yes Yes Yes ) Vital Signs Temperature (97.8 F-99.1 F) 96.9 F L 96.5 F L 96.9 F L Temperature Source Temporal Temporal Temporal Pulse Rate (60-100) 62 59 L 62 Pulse Location Monitor Monitor Monitor Respiratory Rate (12-18) 20 H 20 H 16 Respiratory rate source Observation Observation Observation Oxygen Delivery Method Room Air Room Air Room Air Blood Pressure (90/60-120/80) 155/70 H 150/59 H 112/55 L Blood Pressure Mean (mm Hg) 98 89 74 Source Monitor Monitor Monitor Position Semi-Fowlers Sitting Sitting Blood Pressure Location Left Arm Left Arm Left Arm History Since Last Visit- (Skip if this is Patient's initial visit) Have you changed medications since your No No No last visit? Any new allergies or adverse reactions No No No Had a fall/change in ADL's that may No No No increase risk of falls Signs or symptoms of abuse and/or No No neglect since last visit Have you been in the hospital since your No No last visit? Has dressing in place as prescribed Yes Yes Has compression in place as prescribed No No Has offloadiing in place as prescribed No Experienced any changes in pain level or No No management Left Footwear Regular Shoe Surgical Shoe Surgical Shoe with pressure with pressure relief insole relief insole Right Footwear Regular Shoe Regular Shoe Regular Shoe Pain Scale: 0-10 Numeric Is Patient Pain Free? Yes Yes Yes - Nurse 1 - General Ulcer Measurement Start: 04/30/23 09:55 Freq: Status: Active Protocol: Activity Type Activity Date Activity User E-sign Co-sign Detail Recorded Client Recorded Date Recorded By Document 05/07/23 13:29 KW Desktop 05/07/23 13:37 KW Document 05/14/23 14:28 NRL Desktop 05/14/23 14:36 NRL 05/07/23 05/14/23 13:29 14:28 Wound Center Nurse 1 #1 L Dorsal foot -Ulcer Cleansing Rinsed/ Irrigated with Saline -Anesthetic Used 5% Lidocaine Gel -Wound Comment(s) scabbed #2 L Heel -Combined with other wound No -Current Size (cm) - Length 1.7 0.2 -Current Size (cm) - Width 1.6 1.4 -Current Size (cm) - Depth 0.1 0.1 -Total Square Cm 2.72 0.28 -Date of Last Picture (Recall this 05/14/23 field) -Epithelialization Medium 34-66% -Tunneling No -Undermining/Tunneling No -Exudate Amt Small Medium -Exudate Type Serosanguineous Serosanguineous -Wound Margin Distinct, Flat & Intact Outline Attached -Granulation Amt Medium (34-66%) Large (67-100%) -Granulation Quality [place] -Slough/Fibrin Yes -Necrosis Amt Small (1-33%) Small (1-33%) -Necrotic Tissue Type Adherent Slough Adherent Slough -Texture (Adelina-wound Skin Appearance) Assessed,Callus Assessed,Callus ,Scarring -Moisture (Adelina-wound Skin Appearance) Assessed,Dry/ Assessed Scaly -Color (Adelina-wound Skin Appearance) Assessed Assessed -Temperature (Adelina-wound Skin No Abnormality No Abnormality Appearance) (Pt Warm) (Pt Warm) -Tenderness on Palpation (Adelina-wound No Skin Appearance) -Ulcer Cleansing Rinsed/ Wound Cleanser Irrigated with Saline -Foul Odor after Cleansing No -Anesthetic Used 5% Lidocaine 5% Lidocaine Gel Gel WC - Nurse 2 - General Ulcer CM Notes Start: 04/30/23 09:55 Freq: Status: Active Protocol: Activity Type Activity Date Activity User E-sign Co-sign Detail Recorded Client Recorded Date Recorded By Document 04/30/23 10:11 Laptop 04/30/23 10:18 Document 05/07/23 13:43 Laptop 05/07/23 13:49 Document 05/14/23 14:52 Laptop 05/14/23 14:58 04/30/23 05/07/23 05/14/23 10:11 13:43 14:52 Wound Center Nurse 2 #1 L Dorsal foot -Time 10:17 -Correct Patient Yes No -Correct Side, Site, Position Yes No -Correct Procedure Yes No -Procedure Performed Yes No -Type of Procedure Debridement -Clinical Debridement Subcutaneous -Tissue Removed Subcutaneous -Post Debridement (cm) - Length 0.1 0 -Post Debridement (cm) - Width 0.1 0 -Post Debridement (cm) - Depth 0.1 0 -Total Square (Post) (cm) 0.01 0 -Area of Debridement (cm) - Length 0.1 0 -Area of Debridement (cm) - Width 0.1 0 -Total Square (Area) (cm) 0.01 0 -Tunneling No -Undermining/Tunneling No -Circular Undermining No -Wound/Ulcer Outcome Not Healed Healed- Epithelialized -Foul Odor after Cleansing No -Bioengineered Tissue No -Bleeding Controlled with Pressure -Treatment Response Procedure Tolerated Well -Offloading No -Debridement - Subq, 1st 20sq cm Yes #2 L Heel -Time 10:11 13:44 14:57 -Correct Patient Yes Yes Yes -Correct Side, Site, Position Yes Yes Yes -Correct Procedure Yes Yes Yes -Procedure Performed Yes Yes Yes -Type of Procedure Debridement Debridement Debridement -Clinical Debridement Subcutaneous Subcutaneous Subcutaneous -Tissue Removed Subcutaneous Subcutaneous Subcutaneous -Post Debridement (cm) - Length 1.3 2.2 2.4 -Post Debridement (cm) - Width 2.5 1.1 1.2 -Post Debridement (cm) - Depth 0.1 0.1 0.1 -Total Square (Post) (cm) 3.25 2.42 2.88 -Area of Debridement (cm) - Length 1.3 2.2 2.4 -Area of Debridement (cm) - Width 2.5 1.1 1.2 -Total Square (Area) (cm) 3.25 2.42 2.88 -Tunneling No No No -Undermining/Tunneling No No No -Circular Undermining No No No -Wound/Ulcer Outcome Not Healed Not Healed Not Healed -Ulcer Cleansing Rinsed/ Rinsed/ Rinsed/ Irrigated with Irrigated with Irrigated with Saline Saline Saline -Foul Odor after Cleansing No No No -Bioengineered Tissue Yes Yes Yes -Type of Bioengineered Tissue Epifix Epifix Epifix -Expiration Date 12/29/27 12/29/27 12/29/27 -Product Lot Number [id number] -Percent Used 100 100 100 -Lot number of Saline Used [id number] -Bleeding Controlled with Pressure Pressure Pressure -Treatment Response Procedure Procedure Procedure Tolerated Well Tolerated Well Tolerated Well -Offloading No Yes Yes -Type of Offloading Surgical Shoe Surgical Shoe -Debridement - Subq, 1st 20sq cm No No No -Apply Skin Sub - 1st 25 sq cm - Feet 1 1 1 -Epifix (per sq cm) 4 4 4 Pain Scale: 0-10 Numeric Is Patient Pain Free? Yes Yes Yes - Nurse 3 - General Ulcer D/C NN Start: 04/30/23 09:55 Freq: Status: Active Protocol: Activity Type Activity Date Activity User E-sign Co-sign Detail Recorded Client Recorded Date Recorded By Document 04/30/23 10:24 KW Desktop 04/30/23 10:25 KW 04/30/23 10:24 Wound Care Center Nurse 3 #1 L Dorsal foot -Ulcer Cleansing Rinsed/ Irrigated with Saline -Primary Dressing Covered/Secured with Dry Gauze & Roll Gauze, Secured with Tape #2 L Heel -Ulcer Cleansing Rinsed/ Irrigated with Saline -Primary Dressing Covered/Secured with Dry Gauze & Roll Gauze, Secured with Tape Pain Scale: 0-10 Numeric Is Patient Pain Free? Yes - Visit Discharge Discharge Condition Stable Ambulatory Status Walker Transportation Private Auto Medication Reconcilliation completed & No provided to patient/care provider Clinical Summary of Care Provided Yes Assessment/Plan Assessment/Plan (1) Non-pressure 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: CODE(S): L97.422 - Non-pressure 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 PLAN: Patient was examined and evaluated. All findings were discussed with the patient. All questions were answered to the patient's satisfaction. Excisional debridement of the left heel ulceration down to and including subcutaneous tissue with the number 5 mm dermal curette without incident. Predebridement measurement is 1.0 x 2.0 x 0.1 cm. Postdebridement measurement is 1.2 x 2.4 x 0.1 cm. EpiFix 2.0 x 2.0 cm graft was applied to the left heel full-thickness ulcerationwith 100% use. Fourth application. The graft site was free and clear of any infection. The wound/skin graft substitute was dressed with nonadherent bandagesecured in place with Steri-Strips followed by bolster dressing as well as a single layer Tubigrip. The patient will follow-up in 1 week for in office Misonix debridement. (2) Peripheral vascular disease: CODE(S): I73.9 - Peripheral vascular disease, unspecified 05/14/23 1627 <Electronically signed by Warren Sampson DPM> Cosigner Signature (if applicable): CC: ~ Signed [facility] Work Phone: 1(128) 505-249011-08-2023 Progress note Author Warren Sampson [facility] May 07, 2023 2:04pm Note Date/Time May 07, 2023 2 :04pm [facility] [address] [place] [address] Progress Note - Wound Care 05/07/23 1401 MR#: [id number] Acct: [id number] Name: AMAURY BLANK Rep #:[id number] : 1940 82 From: Warren Wallace PM PCP: Dr. Paco Norman MD Status:R EG RCR Location: History of Present Illness Date of Service: 05/07/23 Chief Complaint: Left foot ulcerations History of Wound: Chronic wounds left foot self treatment as well as SNF treatment Subjective Subjective Mr. Blank is a 82-year-old male presenting for follow-up to the wound care center of left heel and dorsum ulceration. Patient has been doing home dressingchanges at home. He has been approved for EpiFix as well as Santyl. He does his own dressing changes at home but would like home health care to come at least 2-3 times per week. Home health care has reached out. He is waiting to coordinate time. He denies trauma. Denies constitutional symptoms. No other pedal complaints at this time. He is also here to review his of vascular studies as well as labs. Objective Data Objective Data Vital Signs: Vital Signs Temp Pulse Resp BP O2 Del Method 96.5 F L 59 L 20 H 150/59 H Room Air 05/07/23 13:29 05/07/23 13:29 05/07/23 13:29 05/07/23 13:29 05/07/23 13:29 Oxygen Delivery Method Room Air Physical Exam Narrative Vascular: DP and PT pulses are faintly palpable. CFT is delayed. Evidence of hemosiderin deposits appreciated bilateral lower extremity. Skin temperature great is warm to warm from proximal ankle to distal digit. No focal increase noted. Neurological: Light touch intact. Epic or station is diminished. Patient does not respond to painful stimuli. Dermatological: Full-thickness ulceration appreciated to the left heel with fibrogranular tissue. Wound measures after debridement 1.1 x 2.2 x 0.1 cm. Theleft dorsal wound was debrided with a 5 mm dermal curette. Dorsal wound measures healed. Excisional debridement of the left heel ulceration down to and including subcutaneous tissue with the number 5 mm dermal curette without incident. Predebridement measurement is 1.0 x 2.0 x 0.1 cm. Postdebridement measurement is 1.1 x 2.2 x 0.1 cm. EpiFix 2.0 x 2.0 cm graft was applied to the left heel full-thickness ulcerationwith 100% use. Third application. The graft site was free and clear of any infection. The wound/skin graft substitute was dressed with nonadherent bandagesecured in place with Steri-Strips followed by bolster dressing as well as a single layer Tubigrip. Musculoskeletal: No pain on palpation or with sharp debridement to both ulcerations to the left foot. No pain with calf compression. Debridement Note Debridement Note Debridement Free Text: Excisional debridement of the left heel ulceration down to and including subcutaneous tissue with the number 5 mm dermal curette withoutincident. Predebridement measurement is 1.0 x 2.0 x 0.1 cm. Postdebridement measurement is 1.1 x 2.2 x 0.1 cm. EpiFix 2.0 x 2.0 cm graft was applied to the left heel full-thickness ulcerationwith 100% use. Third application. The graft site was free and clear of any infection. The wound/skin graft substitute was dressed with nonadherent bandagesecured in place with Steri-Strips followed by bolster dressing as well as a single layer Tubigrip. Post-Debridement Measurements and Additional Note: Post-Debridement Measurements/Treatment WC - Nurse 1 - General Ulcer Assessment Start: 04/30/23 09:55 Freq: Status: Active Protocol: WC.LOWEXT Activity Type Activity Date Activity User E-sign Co-sign Detail Recorded Client Recorded Date Recorded By Document 04/30/23 09:57 KW [id number] 04/30/23 10:07 KW Document 05/07/23 13:29 KW Desktop 05/07/23 13:37 KW 04/30/23 05/07/23 09:57 13:29 - Today's Visit Information Type of service Follow-up Visit Follow-up Visit (Physician/BOAT REPAIRER (Physician/BOAT REPAIRER ) ) Arrival Mode Ambulatory, Ambulatory, Walker Walker Patient Identification Verified (Name & Yes Yes ) Vital Signs Temperature (97.8 F-99.1 F) 96.9 F L 96.5 F L Temperature Source Temporal Temporal Pulse Rate (60-100) 62 59 L Pulse Location Monitor Monitor Respiratory Rate (12-18) 20 H 20 H Respiratory rate source Observation Observation Oxygen Delivery Method Room Air Room Air Blood Pressure (90/60-120/80) 155/70 H 150/59 H Blood Pressure Mean (mm Hg) 98 89 Source Monitor Monitor Position Semi-Fowlers Sitting Blood Pressure Location Left Arm Left Arm History Since Last Visit- (Skip if this is Patient's initial visit) Have you changed medications since your No No last visit? Any new allergies or adverse reactions No No Had a fall/change in ADL's that may No No increase risk of falls Signs or symptoms of abuse and/or No No neglect since last visit Have you been in the hospital since your No last visit? Has dressing in place as prescribed Yes Has compression in place as prescribed No Has offloadiing in place as prescribed No Experienced any changes in pain level or No management Left Footwear Regular Shoe Surgical Shoe with pressure relief insole Right Footwear Regular Shoe Regular Shoe Pain Scale: 0-10 Numeric Is Patient Pain Free? Yes Yes - Nurse 1 - General Ulcer Measurement Start: 04/30/23 09:55 Freq: Status: Active Protocol: Activity Type Activity Date Activity User E-sign Co-sign Detail Recorded Client Recorded Date Recorded By Document 05/07/23 13:29 KW Desktop 05/07/23 13:37 KW 05/07/23 13:29 Wound Center Nurse 1 #1 L Dorsal foot -Ulcer Cleansing Rinsed/ Irrigated with Saline -Anesthetic Used 5% Lidocaine Gel -Wound Comment(s) scabbed #2 L Heel -Current Size (cm) - Length 1.7 -Current Size (cm) - Width 1.6 -Current Size (cm) - Depth 0.1 -Total Square Cm 2.72 -Exudate Amt Small -Exudate Type Serosanguineous -Wound Margin Distinct, Outline Attached -Granulation Amt Medium (34-66%) -Granulation Quality [place] -Necrosis Amt Small (1-33%) -Necrotic Tissue Type Adherent Slough -Texture (Adelina-wound Skin Appearance) Assessed,Callus -Moisture (Adelina-wound Skin Appearance) Assessed,Dry/ Scaly -Color (Adelina-wound Skin Appearance) Assessed -Temperature (Adelina-wound Skin No Abnormality Appearance) (Pt Warm) -Ulcer Cleansing Rinsed/ Irrigated with Saline -Anesthetic Used 5% Lidocaine Gel WC - Nurse 2 - General Ulcer CM Notes Start: 04/30/23 09:55 Freq: Status: Active Protocol: Activity Type Activity Date Activity User E-sign Co-sign Detail Recorded Client Recorded Date Recorded By Document 04/30/23 10:11 Laptop 04/30/23 10:18 Document 05/07/23 13:43 Laptop 05/07/23 13:49 04/30/23 05/07/23 10:11 13:43 Wound Center Nurse 2 #1 L Dorsal foot -Time 10:17 -Correct Patient Yes No -Correct Side, Site, Position Yes No -Correct Procedure Yes No -Procedure Performed Yes No -Type of Procedure Debridement -Clinical Debridement Subcutaneous -Tissue Removed Subcutaneous -Post Debridement (cm) - Length 0.1 0 -Post Debridement (cm) - Width 0.1 0 -Post Debridement (cm) - Depth 0.1 0 -Total Square (Post) (cm) 0.01 0 -Area of Debridement (cm) - Length 0.1 0 -Area of Debridement (cm) - Width 0.1 0 -Total Square (Area) (cm) 0.01 0 -Tunneling No -Undermining/Tunneling No -Circular Undermining No -Wound/Ulcer Outcome Not Healed Healed- Epithelialized -Foul Odor after Cleansing No -Bioengineered Tissue No -Bleeding Controlled with Pressure -Treatment Response Procedure Tolerated Well -Offloading No -Debridement - Subq, 1st 20sq cm Yes #2 L Heel -Time 10:11 13:44 -Correct Patient Yes Yes -Correct Side, Site, Position Yes Yes -Correct Procedure Yes Yes -Procedure Performed Yes Yes -Type of Procedure Debridement Debridement -Clinical Debridement Subcutaneous Subcutaneous -Tissue Removed Subcutaneous Subcutaneous -Post Debridement (cm) - Length 1.3 2.2 -Post Debridement (cm) - Width 2.5 1.1 -Post Debridement (cm) - Depth 0.1 0.1 -Total Square (Post) (cm) 3.25 2.42 -Area of Debridement (cm) - Length 1.3 2.2 -Area of Debridement (cm) - Width 2.5 1.1 -Total Square (Area) (cm) 3.25 2.42 -Tunneling No No -Undermining/Tunneling No No -Circular Undermining No No -Wound/Ulcer Outcome Not Healed Not Healed -Ulcer Cleansing Rinsed/ Rinsed/ Irrigated with Irrigated with Saline Saline -Foul Odor after Cleansing No No -Bioengineered Tissue Yes Yes -Type of Bioengineered Tissue Epifix Epifix -Expiration Date 12/29/27 12/29/27 -Product Lot Number [id number] -Percent Used 100 100 -Lot number of Saline Used [id number] -Bleeding Controlled with Pressure Pressure -Treatment Response Procedure Procedure Tolerated Well Tolerated Well -Offloading No Yes -Type of Offloading Surgical Shoe -Debridement - Subq, 1st 20sq cm No No -Apply Skin Sub - 1st 25 sq cm - Feet 1 1 -Epifix (per sq cm) 4 4 Pain Scale: 0-10 Numeric Is Patient Pain Free? Yes Yes - Nurse 3 - General Ulcer D/C NN Start: 04/30/23 09:55 Freq: Status: Active Protocol: Activity Type Activity Date Activity User E-sign Co-sign Detail Recorded Client Recorded Date Recorded By Document 04/30/23 10:24 KW Desktop 04/30/23 10:25 KW 04/30/23 10:24 Wound Care Center Nurse 3 #1 L Dorsal foot -Ulcer Cleansing Rinsed/ Irrigated with Saline -Primary Dressing Covered/Secured with Dry Gauze & Roll Gauze, Secured with Tape #2 L Heel -Ulcer Cleansing Rinsed/ Irrigated with Saline -Primary Dressing Covered/Secured with Dry Gauze & Roll Gauze, Secured with Tape Pain Scale: 0-10 Numeric Is Patient Pain Free? Yes WC - Visit Discharge Discharge Condition Stable Ambulatory Status Walker Transportation Private Auto Medication Reconcilliation completed & No provided to patient/care provider Clinical Summary of Care Provided Yes Assessment/Plan Assessment/Plan (1) Non-pressure 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: CODE(S): L97.422 - Non-pressure 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 PLAN: Patient was examined evaluated. All findings were discussed with the patient. All questions were answered to the patient's satisfaction. Excisional debridement of the left heel ulceration down to and including subcutaneous tissue with the number 5 mm dermal curette without incident. Predebridement measurement is 1.0 x 2.0 x 0.1 cm. Postdebridement measurement is 1.1 x 2.2 x 0.1 cm. EpiFix 2.0 x 2.0 cm graft was applied to the left heel full-thickness ulcerationwith 100% use. Third application. The graft site was free and clear of any infection. The wound/skin graft substitute was dressed with nonadherent bandagesecured in place with Steri-Strips followed by bolster dressing as well as a single layer Tubigrip. Follow-up 1 week. (2) Peripheral vascular disease: CODE(S): I73.9 - Peripheral vascular disease, unspecified 05/07/23 1404 <Electronically signed by Warren Sampson DPM> Cosigner Signature (if applicable): CC: ~ Signed [facility] Work Phone: 1(482) 411-857511-01-2023 Progress note Author Warren Sampson [facility] April 30, 2023 10:22am Note Date/Time April 30, 2023 1 0:22am [facility] [address] [place] [id number] Progress Note - Wound Care 04/30/23 1018 MR#: [id number] Acct: [id number] Name: AMAURY BLANK Rep #:[id number] : 1940 82 From: Warren Wallace PM PCP: Dr. Paco Norman MD Status:R EG RCR Location: History of Present Illness Date of Service: 11/01/23 Chief Complaint: Left foot ulcerations History of Wound: Chronic wounds left foot self treatment as well as SNF treatment Subjective Subjective Mr. Blank is a 82-year-old male presenting for follow-up to the wound care center of left heel and dorsum ulceration. Patient has been doing home dressingchanges at home. He has been approved for EpiFix as well as Santyl. He does his own dressing changes at home but would like home health care to come at least 2-3 times per week. Home health care has reached out. He is waiting to coordinate time. He denies trauma. Denies constitutional symptoms. No other pedal complaints at this time. He is also here to review his of vascular studies as well as labs. Objective Data Objective Data Vital Signs: Vital Signs Temp Pulse Resp BP O2 Del Method 96.9 F L 62 20 H 155/70 H Room Air 04/30/23 09:57 04/30/23 09:57 04/30/23 09:57 04/30/23 09:57 04/30/23 09:57 Oxygen Delivery Method Room Air Physical Exam Narrative Vascular: DP and PT pulses are faintly palpable. CFT is delayed. Evidence of hemosiderin deposits appreciated bilateral lower extremity. Skin temperature great is warm to warm from proximal ankle to distal digit. No focal increase noted. Neurological: Light touch intact. Epic or station is diminished. Patient does not respond to painful stimuli. Dermatological: Full-thickness ulceration appreciated to the left heel with fibrogranular tissue. Wound measures after debridement 1.3 x 2.5 x 0.1 cm cm. The left dorsal wound was debrided with a 5 mm dermal curette. Dorsal wound measures 0.1 x 0.1 x 0.1 cm. Excisional debridement of the left heel ulceration down to and including subcutaneous tissue with the number 5 mm dermal curette without incident. Predebridement measurement is 1.2 x 2.4 x 0.1 cm. Postdebridement measurement is 1.3 x 2.5 x 0.1 cm. Excisional debridement of the left dorsum ulceration down to and including subcutaneous tissue with a #5 millimeter dermal curette without incident. Predebridement measurement is eschar. Postdebridement measurement is 0.1 x 0.1 x 0.1. EpiFix 2.0 x 2.0 cm graft was applied to the left heel full-thickness ulcerationwith 100% use. Second application. The graft site was free and clear of any infection. The wound/skin graft substitute was dressed with nonadherent bandage secured in place with Steri-Strips followed by bolster dressing as well as a single layer Tubigrip. Musculoskeletal: No pain on palpation or with sharp debridement to both ulcerations to the left foot. No pain with calf compression. Debridement Note Debridement Note Debridement Free Text: Excisional debridement of the left heel ulceration down to and including subcutaneous tissue with the number 5 mm dermal curette withoutincident. Predebridement measurement is 1.2 x 2.4 x 0.1 cm. Postdebridement measurement is 1.3 x 2.5 x 0.1 cm. Excisional debridement of the left dorsum ulceration down to and including subcutaneous tissue with a #5 millimeter dermal curette without incident. Predebridement measurement is eschar. Postdebridement measurement is 0.1 x 0.1 x 0.1. EpiFix 2.0 x 2.0 cm graft was applied to the left heel full-thickness ulcerationwith 100% use. Second application. The graft site was free and clear of any infection. The wound/skin graft substitute was dressed with nonadherent bandagesecured in place with Steri-Strips followed by bolster dressing as well as a single layer Tubigrip. Post-Debridement Measurements and Additional Note: Post-Debridement Measurements/Treatment - Nurse 1 - General Ulcer Assessment Start: 04/30/23 09:55 Freq: Status: Active Protocol: WC.LOWMARQUISE Activity Type Activity Date Activity User E-sign Co-sign Detail Recorded Client Recorded Date Recorded By Document 04/30/23 09:57 [id number] 04/30/23 10:07 KW 04/30/23 09:57 - Today's Visit Information Type of service Follow-up Visit (Physician/BOAT REPAIRER ) Arrival Mode Ambulatory, Walker Patient Identification Verified (Name & Yes ) Vital Signs Temperature (97.8 F-99.1 F) 96.9 F L Temperature Source Temporal Pulse Rate (60-100) 62 Pulse Location Monitor Respiratory Rate (12-18) 20 H Respiratory rate source Observation Oxygen Delivery Method Room Air Blood Pressure (90/60-120/80) 155/70 H Blood Pressure Mean (mm Hg) 98 Source Monitor Position Semi-Fowlers Blood Pressure Location Left Arm History Since Last Visit- (Skip if this is Patient's initial visit) Have you changed medications since your No last visit? Any new allergies or adverse reactions No Had a fall/change in ADL's that may No increase risk of falls Signs or symptoms of abuse and/or No neglect since last visit Left Footwear Regular Shoe Right Footwear Regular Shoe Pain Scale: 0-10 Numeric Is Patient Pain Free? Yes - Nurse 2 - General Ulcer CM Notes Start: 04/30/23 09:55 Freq: Status: Active Protocol: Activity Type Activity Date Activity User E-sign Co-sign Detail Recorded Client Recorded Date Recorded By Document 04/30/23 10:11 Laptop 04/30/23 10:18 04/30/23 10:11 Wound Center Nurse 2 #2 L Heel -Time 10:11 -Correct Patient Yes -Correct Side, Site, Position Yes -Correct Procedure Yes -Procedure Performed Yes -Type of Procedure Debridement -Clinical Debridement Subcutaneous -Tissue Removed Subcutaneous -Post Debridement (cm) - Length 1.3 -Post Debridement (cm) - Width 2.5 -Post Debridement (cm) - Depth 0.1 -Total Square (Post) (cm) 3.25 -Area of Debridement (cm) - Length 1.3 -Area of Debridement (cm) - Width 2.5 -Total Square (Area) (cm) 3.25 -Tunneling No -Undermining/Tunneling No -Circular Undermining No -Wound/Ulcer Outcome Not Healed -Ulcer Cleansing Rinsed/ Irrigated with Saline -Foul Odor after Cleansing No -Bioengineered Tissue Yes -Type of Bioengineered Tissue Epifix -Expiration Date 12/29/27 -Product Lot Number [id number] -Percent Used 100 -Lot number of Saline Used [id number] -Bleeding Controlled with Pressure -Treatment Response Procedure Tolerated Well -Offloading No -Debridement - Subq, 1st 20sq cm No -Apply Skin Sub - 1st 25 sq cm - Feet 1 -Epifix (per sq cm) 4 #1 L Dorsal foot -Time 10:17 -Correct Patient Yes -Correct Side, Site, Position Yes -Correct Procedure Yes -Procedure Performed Yes -Type of Procedure Debridement -Clinical Debridement Subcutaneous -Tissue Removed Subcutaneous -Post Debridement (cm) - Length 0.1 -Post Debridement (cm) - Width 0.1 -Post Debridement (cm) - Depth 0.1 -Total Square (Post) (cm) 0.01 -Area of Debridement (cm) - Length 0.1 -Area of Debridement (cm) - Width 0.1 -Total Square (Area) (cm) 0.01 -Tunneling No -Undermining/Tunneling No -Circular Undermining No -Wound/Ulcer Outcome Not Healed -Foul Odor after Cleansing No -Bioengineered Tissue No -Bleeding Controlled with Pressure -Treatment Response Procedure Tolerated Well -Offloading No -Debridement - Subq, 1st 20sq cm Yes Pain Scale: 0-10 Numeric Is Patient Pain Free? Yes Assessment/Plan Assessment/Plan (1) Non-pressure 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: CODE(S): L97.422 - Non-pressure 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 PLAN: Excisional debridement of the left heel ulceration down to and including subcutaneous tissue with the number 5 mm dermal curette without incident. Predebridement measurement is 1.2 x 2.4 x 0.1 cm. Postdebridement measurement is 1.3 x 2.5 x 0.1 cm. Excisional debridement of the left dorsum ulceration down to and including subcutaneous tissue with a #5 millimeter dermal curette without incident. Predebridement measurement is eschar. Postdebridement measurement is 0.1 x 0.1 x 0.1. EpiFix 2.0 x 2.0 cm graft was applied to the left heel full-thickness ulcerationwith 100% use. Second application. The graft site was free and clear of any infection. The wound/skin graft substitute was dressed with nonadherent bandagesecured in place with Steri-Strips followed by bolster dressing as well as a single layer Tubigrip. Patient is to call back home health care and set up dressing change 3 times a day for the dorsal wound on the left foot. Referral given for vascular follow-up. Follow-up in 1 week at the wound care center with Dr. Sampson. (2) Peripheral vascular disease: CODE(S): I73.9 - Peripheral vascular disease, unspecified 04/30/23 1022 <Electronically signed by Warren Sampson DPM> Cosigner Signature (if applicable): CC: ~ Signed [facility] Work Phone: 1(104) 374-437610-25-2023 Progress note Author Warren Sampson [facility] April 23, 2023 2:39pm Note Date/Time April 23, 2023 2 :39pm [facility] [address] [place] [address] Progress Note - Wound Care 04/23/23 1429 MR#: [id number] Acct: [id number] Name: AMAURY BLANK Rep #:[id number] : 1940 82 From: Warren Wallace PM PCP: Dr. Paco Norman MD Status:R EG RCR Location: History of Present Illness Date of Service: 04/23/23 Chief Complaint: Left foot ulcerations History of Wound: Chronic wounds left foot self treatment as well as SNF treatment Progress of Wound: Mr. Blank is a 82-year-old male presenting to the wound care center today at [facility] with a chief complaint of ulcerations to the left foot. Patient has 2 wounds to the top and heel of the left foot. Patient was recently residing in a [facility] secondary to pneumonia and a hip fracture. He is currently been home for 2 weeks. He has been having home care once a weekfrom an outside assistance. Patient has been wearing a border foam and ambulating in sandals to the left foot. He admits that the top wound on the left foot is about healed but has evidence of a black eschar to the heel of the left foot. Patient denies being diabetic. He denies any new onset of trauma except stated above. He denies constitutional symptoms. No other pedal plaints at this time. Subjective Subjective Mr. Lim is a 82-year-old male presenting for follow-up to the wound care center of left heel and dorsum ulceration. Patient has been doing home dressing changes at home. He has been approved for EpiFix as well as Santyl. He does his own dressing changes at home but would like home health care to come at least 2-3 times per week. He denies trauma. Denies constitutional symptoms. No other pedal complaints at this time. He is also here to review his of vascular studies as well as labs. Objective Data Objective Data Vital Signs: Vital Signs Temp Pulse Resp BP O2 Del Method 96.8 F L 66 18 170/49 H Room Air 04/23/23 13:46 04/23/23 13:46 04/23/23 13:46 04/23/23 13:46 04/23/23 13:46 Oxygen Delivery Method Room Air Lab / Micro Data 04/16/23 15:05 04/16/23 15:05 Radiography Diagnostic Testing: Radiology Impression Extremity Arterial Study 04/22/23 09:57 Interpretation Summary Biphasic Doppler waveforms are noted at ankle level on the right. Monophasic Doppler waveforms are noted at ankle level on the left. Pulse-volume recordings appear satisfactory bilaterally. The resting right ankle-brachial index is normal. The resting left ankle-brachial index could not be determined due to the non-compressibility of the vasculature at ankle level on the left. The right digital-brachial index is mildly diminished. The left digital-brachial index is moderately diminished. There is evidence of arterial calcification at ankle level on the left. Arterialflow appears normal at ankle level on the right. Arterial flow appears to be diminished at ankle level on the left, evidenced by monophasic waveforms. 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 Ordering Physician: Warren Sampson Referring Physician: Paco Norman Performed By: Kylah Turner RVT Venous Doppler Study 04/22/23 09:57 Interpretation Summary Deep veins of the lower extremities are bilaterally patent and compressible segmentally. There is no evidence of deep vein thrombosis on either side. Valvular competence appears intact within the proximal deep venous systems bilaterally. The great saphenous veins appear bilaterally patent and compressible segmentally. Sapheno-femoral junctions are bilaterally competent . Valvular competence appears to be intact segmentally within the great saphenous veins bilaterally. Small saphenous veins are patent and competent bilaterally. The accessory saphenous vein in the left mid-calf is incompetent. Ordering Physician: Warren Sampson Referring Physician: Paco Norman Performed By: Kylah Turner RVT Physical Exam Narrative Vascular: DP and PT pulses are faintly palpable. CFT is delayed. Evidence of hemosiderin deposits appreciated bilateral lower extremity. Skin temperature great is warm to warm from proximal ankle to distal digit. No focal increase noted. Neurological: Light touch intact. Epic or station is diminished. Patient does not respond to painful stimuli. Dermatological: Full-thickness ulceration appreciated to the left heel with fibrogranular tissue. Wound measures after debridement 1.3 x 2.8 x 0.1 cm. Thewound was debrided to the left heel with [employer]s ultrasonic debrider. The left dorsal wound was debrider with a 5 mm dermal curette. Dorsal wound measures 0.9 x 0.4 x 0.1 cm. Excisional debridement of the left heel ulceration down to and including subcutaneous tissue with the [employer]on[employer] ultrasonic debrider without incident. Predebridement measurement is 1.2 x 2.5 x 0.1 cm. Postdebridement measurement is 1.3 x 2.8 x 0.1 cm. Excisional debridement of the left dorsum ulceration down to and including subcutaneous tissue with a #5 millimeter dermal curette without incident. Predebridement measurement is 0.8 x 0.3 x 0.1 cm. Postdebridement measurement is 0.9 x 0.4 x 0.1 cm. EpiFix 2.0 x 2.0 cm graft was applied to the left heel full-thickness ulcerationwith 100% use. First application. The graft site was free and clear of any infection. The wound/skin graft substitute was dressed with nonadherent bandagesecured in place with Steri-Strips followed by bolster dressing as well as a single layer Tubigrip. Musculoskeletal: No pain on palpation or with sharp debridement to both ulcerations to the left foot. No pain with calf compression. Debridement Note Debridement Note Debridement Free Text: Excisional debridement of the left heel ulceration down to and including subcutaneous tissue with the [employer]on[employer] ultrasonic debrider without incident. Predebridement measurement is 1.2 x 2.5 x 0.1 cm. Postdebridement measurement is 1.3 x 2.8 x 0.1 cm. Excisional debridement of the left dorsum ulceration down to and including subcutaneous tissue with a #5 millimeter dermal curette without incident. Predebridement measurement is 0.8 x 0.3 x 0.1 cm. Postdebridement measurement is 0.9 x 0.4 x 0.1 cm. EpiFix 2.0 x 2.0 cm graft was applied to the left heel full-thickness ulcerationwith 100% use. First application. The graft site was free and clear of any infection. The wound/skin graft substitute was dressed with nonadherent bandagesecured in place with Steri-Strips followed by bolster dressing as well as a single layer Tubigrip. Post-Debridement Measurements and Additional Note: Post-Debridement Measurements/Treatment - Nurse 1 - General Ulcer Assessment Start: 04/16/23 13:07 Freq: Status: Active Protocol: GE Activity Type Activity Date Activity User E-sign Co-sign Detail Recorded Client Recorded Date Recorded By Document 04/16/23 13:07 DL Desktop 04/16/23 13:36 DL Document 04/23/23 13:46 KW Desktop 04/23/23 13:52 KW 04/16/23 04/23/23 13:07 13:46 - Today's Visit Information Type of service Initial Visit Follow-up Visit (Physician/BOAT REPAIRER ) Arrival Mode Ambulatory, Ambulatory, Walker Walker Transfer Assistance None Patient Identification Verified (Name & Yes Yes ) Patient Requires Transmission-Based No Precautions Safety Precautions Fall Prevention Vital Signs Temperature (97.8 F-99.1 F) 97 F L 96.8 F L Temperature Source Temporal Temporal Pulse Rate (60-100) 58 L 66 Pulse Location Monitor Monitor Respiratory Rate (12-18) 20 H 18 Respiratory rate source Observation Observation Oxygen Delivery Method Room Air Blood Pressure (90/60-120/80) 138/43 H 170/49 H Blood Pressure Mean (mm Hg) 74 89 Source Monitor Monitor Position Sitting Blood Pressure Location Left Arm History Since Last Visit- (Skip if this is Patient's initial visit) Have you changed medications since your No last visit? Any new allergies or adverse reactions No Had a fall/change in ADL's that may No increase risk of falls Signs or symptoms of abuse and/or No neglect since last visit Have you been in the hospital since your No last visit? Has dressing in place as prescribed Yes Left Footwear Slipper Surgical Shoe with pressure relief insole Right Footwear Slipper Regular Shoe Pain Scale: 0-10 Numeric Is Patient Pain Free? Yes Yes Lower Extremity Assessment/ Foot Assessment/ Toe Nail Assessment Left -Posterior Tibial Palpable No -Dorsalis Pedis Palpable No -Extremity Color Hyperpigmented, Hemosiderin -Dependent Rubor No -Blanched when Elevated No -Lipodermatosclerosis No -Other Deformity No -Prior Foot Ulcer No -Charcot Joint No -Prior Amputation No -Thick Yes -Discolored Yes -Deformed Yes -Improper Length & Hygeine No Right -Extremity Color Hyperpigmented, Hemosiderin -Hair Growth on Legs No -Hair Growth on Toes No -Temperature of Extremity Warm -Capillary Refill Greater than 3 Seconds -Dependent Rubor No -Blanched when Elevated No -Lipodermatosclerosis No -Other Deformity No -Prior Foot Ulcer No -Charcot Joint No -Prior Amputation No -Thick Yes -Discolored Yes -Deformed Yes -Improper Length & Hygeine No Neuropathy Assessment Feet - Top Side and Bottom <Entered> (a) Communication Assessment Preferred language Danish Able to Read Yes Able to Write Yes Right Hearing Abillity Hard of Hearing ,Use of Hearing Aid Left Hearing Abillity Hard of Hearing ,Use of Hearing Aid Visual Assistive Devices Glasses Teaching Assessment Preferences Verbal,Written Barriers to Learning None Readiness To Learn Good Willingness to Engage in Self Management Med Activies Readiness to Engage in Self Management Med Activities Anxiety Level Calm Cooperation Cooperative Perception Coherent Interest in Health Problem Asks Questions Education Importance Acknowledges Need Smoking Status Former smoker Is Patient Diabetic No Functional Assessment Recent Decline in Ability to Perform Denies Any Declines Culture/Amish/Biogeographer Cultural/Amish Needs that may affect No Treatment Plan Would you allow our hospital salesperson men's and boys' clothing to No meet you for the purpose of spiritual/ emotional support? Biogeographer to contact place of rastafari No Teaching: Wound Center Discharge Instructions -Person Taught Patient Dressing Your Wound -Person Taught Patient *Welcome to the Wound Center -Person Taught Patient (a) 1 - + WC - Nurse 1 - General Ulcer Measurement Start: 04/16/23 13:07 Freq: Status: Active Protocol: Activity Type Activity Date Activity User E-sign Co-sign Detail Recorded Client Recorded Date Recorded By Document 04/16/23 13:07 DL Desktop 04/16/23 13:36 DL Document 04/23/23 13:46 KW Desktop 04/23/23 13:52 KW 04/16/23 04/23/23 13:07 13:46 Wound Center Nurse 1 #2 L Heel -Current Size (cm) - Length 3 1.8 -Current Size (cm) - Width 3 3.4 -Current Size (cm) - Depth 0.1 0.1 -Total Square Cm 9 6.12 -Photo Taken Yes -Classification - Thickness Unclassifiable (Eschar Covered ) -Exudate Amt None Present Medium -Exudate Type Serosanguineous -Wound Margin Thickened Distinct, Outline Attached -Granulation Amt None Present (0 Medium (34-66%) %) -Granulation Quality [place] -Necrosis Amt Large (67-100%) Medium (34-66%) -Necrotic Tissue Type Eschar Adherent Slough -Structure Exposed N/A -Texture (Adelina-wound Skin Appearance) Scarring Assessed -Moisture (Adelina-wound Skin Appearance) Dry/Scaly Assessed, Maceration -Color (Adelina-wound Skin Appearance) Hemosiderin Assessed Staining -Temperature (Adelina-wound Skin No Abnormality No Abnormality Appearance) (Pt Warm) (Pt Warm) -Tenderness on Palpation (Adelina-wound No Skin Appearance) -Ulcer Cleansing Not Cleansed Soap and Water -Foul Odor after Cleansing No No -Anesthetic Used 5% Lidocaine 5% Lidocaine Gel Gel #1 L Dorsal foot -Current Size (cm) - Length 0.7 1.3 -Current Size (cm) - Width 1 0.4 -Current Size (cm) - Depth 0.1 0.1 -Total Square Cm 0.7 0.52 -Photo Taken Yes -Exudate Amt Small Small -Exudate Type Serosanguineous Serosanguineous -Wound Margin Distinct, Distinct, Outline Outline Attached Attached -Granulation Amt Small (1-33%) Medium (34-66%) -Granulation Quality [place] -Necrosis Amt None Present (0 Small (1-33%) %) -Necrotic Tissue Type Adherent Slough -Structure Exposed N/A -Texture (Adelina-wound Skin Appearance) Localized Edema Assessed ,Scarring -Moisture (Adelina-wound Skin Appearance) Dry/Scaly Assessed -Color (Adelina-wound Skin Appearance) Hemosiderin Assessed Staining -Temperature (Adelina-wound Skin No Abnormality No Abnormality Appearance) (Pt Warm) (Pt Warm) -Tenderness on Palpation (Adelina-wound No Skin Appearance) -Ulcer Cleansing Soap and Water Soap and Water -Foul Odor after Cleansing No No -Anesthetic Used 5% Lidocaine 5% Lidocaine Gel Gel Right Calf (cm) 33.5 Right Ankle (cm) 21 Left Calf (cm) 32 Left Ankle (cm) 21.3 WC - Nurse 2 - General Ulcer CM Notes Start: 04/16/23 13:07 Freq: Status: Active Protocol: Activity Type Activity Date Activity User E-sign Co-sign Detail Recorded Client Recorded Date Recorded By Document 04/16/23 14:10 [employer] Laptop 04/16/23 14:17 [employer] Document 04/23/23 14:15 [employer] Laptop 04/23/23 14:20 04/16/23 04/23/23 14:10 14:15 Wound Center Nurse 2 #2 L Heel -Time 14:13 14:18 -Correct Patient Yes Yes -Correct Side, Site, Position Yes Yes -Correct Procedure Yes Yes -Procedure Performed Yes Yes -Type of Procedure Debridement Debridement -Clinical Debridement Subcutaneous Subcutaneous -Tissue Removed Subcutaneous Subcutaneous -Post Debridement (cm) - Length 1.5 1.3 -Post Debridement (cm) - Width 2.8 2.8 -Post Debridement (cm) - Depth 0.2 0.1 -Total Square (Post) (cm) 4.20 3.64 -Area of Debridement (cm) - Length 1.5 1.3 -Area of Debridement (cm) - Width 2.8 2.8 -Total Square (Area) (cm) 4.20 3.64 -Tunneling No No -Undermining/Tunneling No No -Circular Undermining No No -Wound/Ulcer Outcome Not Healed Not Healed -Ulcer Cleansing Rinsed/ Rinsed/ Irrigated with Irrigated with Saline Saline -Foul Odor after Cleansing No No -Bioengineered Tissue No Yes -Type of Bioengineered Tissue Epifix -Expiration Date 12/29/27 -Product Lot Number [id number] -Percent Used 100 -Lot number of Saline Used [id number] -Bleeding Controlled with Pressure Pressure -Treatment Response Procedure Procedure Tolerated Well Tolerated Well -Offloading No No -Debridement - Subq, 1st 20sq cm Yes No -Apply Skin Sub - 1st 25 sq cm - Feet 1 -Epifix (per sq cm) 4 #1 L Dorsal foot -Time 14:14 14:19 -Correct Patient Yes Yes -Correct Side, Site, Position Yes Yes -Correct Procedure Yes Yes -Procedure Performed Yes Yes -Type of Procedure Debridement Debridement -Clinical Debridement Subcutaneous Subcutaneous -Tissue Removed Subcutaneous Subcutaneous -Post Debridement (cm) - Length 1.0 0.9 -Post Debridement (cm) - Width 0.5 0.4 -Post Debridement (cm) - Depth 0.1 0.1 -Total Square (Post) (cm) 0.50 0.36 -Area of Debridement (cm) - Length 1.0 0.9 -Area of Debridement (cm) - Width 0.5 0.4 -Total Square (Area) (cm) 0.50 0.36 -Tunneling No No -Undermining/Tunneling No No -Circular Undermining No No -Wound/Ulcer Outcome Not Healed Not Healed -Ulcer Cleansing Rinsed/ Rinsed/ Irrigated with Irrigated with Saline Saline -Foul Odor after Cleansing No No -Bioengineered Tissue No No -Bleeding Controlled with Pressure Pressure -Treatment Response Procedure Procedure Tolerated Well Tolerated Well -Offloading No No -Debridement - Subq, 1st 20sq cm No Yes Pain Scale: 0-10 Numeric Is Patient Pain Free? Yes Yes WC - Nurse 3 - General Ulcer D/C NN Start: 04/16/23 13:07 Freq: Status: Active Protocol: Activity Type Activity Date Activity User E-sign Co-sign Detail Recorded Client Recorded Date Recorded By Document 04/16/23 14:24 [facility] Desktop 04/16/23 14:27 [facility] 04/16/23 14:24 Wound Care Center Nurse 3 #2 L Heel -Ulcer Cleansing Rinsed/ Irrigated with Saline -Foul Odor after Cleansing No -Other Dressing hydrogel -Primary Dressing Covered/Secured with Dry Gauze & Roll Gauze, Secured with Tape -Other Covering per dl glass frame fitter #1 L Dorsal foot -Ulcer Cleansing Rinsed/ Irrigated with Saline -Foul Odor after Cleansing No -Other Dressing antibiotic oint -Primary Dressing Covered/Secured with Dry Gauze & Roll Gauze, Secured with Tape -Other Covering per dl glass frame fitter Treatment Response Procedure Tolerated Well Pain Scale: 0-10 Numeric Is Patient Pain Free? Yes WC - Visit Discharge Discharge Condition Stable Ambulatory Status Ambulatory, Walker Transportation Private Auto Assessment/Plan Assessment/Plan (1) Non-pressure 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: CODE(S): L97.422 - Non-pressure 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 PLAN: Patient was examined evaluated. All findings were discussed with the patient. All questions were answered to the patient satisfaction. Excisional debridement of the left heel ulceration down to and including subcutaneous tissue with the [employer] ultrasonic debrider without incident. Predebridement measurement is 1.2 x 2.5 x 0.1 cm. Postdebridement measurement is 1.3 x 2.8 x 0.1 cm. Excisional debridement of the left dorsum ulceration down to and including subcutaneous tissue with a #5 millimeter dermal curette without incident. Predebridement measurement is 0.8 x 0.3 x 0.1 cm. Postdebridement measurement is 0.9 x 0.4 x 0.1 cm. EpiFix 2.0 x 2.0 cm graft was applied to the left heel full-thickness ulcerationwith 100% use. First application. The graft site was free and clear of any infection. The wound/skin graft substitute was dressed with nonadherent bandagesecured in place with Steri-Strips followed by bolster dressing as well as a single layer Tubigrip. Follow-up in 1 week. (2) Peripheral vascular disease: CODE(S): I73.9 - Peripheral vascular disease, unspecified PLAN: After reviewing the patient's PVRs. The right lower extremity is within normal limits. Left lower extremity shows evidence of possible peripheral vascular disease. ABIs were not retrieved from the documentation since the patient has noncompressible vessels to left lower extremity. He will be given referral to follow-up with vascular surgery, Dr. Lim at [facility]. 04/23/23 2628 <Electronically signed by Warren Sampson DPM> Cosigner Signature (if applicable): CC: ~ Signed [facility] Work Phone: [phone] 622-255510-18-2023 History and physical note Author Warren Sampson [facility] April 16, 2023 3:15pm Note Date/Time April 16, 2023 3 :15pm [facility] [address] [place] [id number] H&P Exam - Wound Care 04/16/23 1508 MR#: [id number] Acct: [id number] Name: AMAURY BLANK Rep #:[id number] : 1940 82 From: Warren Wallace PM PCP: Dr. Paco Norman MD Status:R EG RCR Location: History of Present Illness Date of Service: 04/16/23 Chief Complaint: Left foot ulcerations History of Wound: Chronic wounds left foot self treatment as well as SNF treatment Progress of Wound: Mr. Blank is a 82-year-old male presenting to the wound care center today at [facility] with a chief complaint of ulcerations to the left foot. Patient has 2 wounds to the top and heel of the left foot. Patient was recently residing in a [facility] secondary to pneumonia and a hip fracture. He is currently been home for 2 weeks. He has been having home care once a weekfrom an outside assistance. Patient has been wearing a border foam and ambulating in sandals to the left foot. He admits that the top wound on the left foot is about healed but has evidence of a black eschar to the heel of the left foot. Patient denies being diabetic. He denies any new onset of trauma except stated above. He denies constitutional symptoms. No other pedal plaintsat this time. [facility] Medical History Alcohol use Atherosclerotic heart disease of [place] coronary artery without angina pectoris Atrial fibrillation and flutter Cardiology follow-up encounter Carotid artery stenosis Dietary restriction Elevated troponin Emphysema of lung Essential hypertension Fever Former smoker Hematemesis/vomiting blood High cholesterol History of atrial fibrillation History of cardioversion (~05/09/20) History of coronary artery disease History of echocardiogram History of edema History of GI bleed History of right inguinal hernia History of stress test History of transesophageal echocardiography (ROSI) History of umbilical hernia Hx of ulcerative colitis Hypercholesterolemia Hyperlipidemia Hypertension Injury of head and neck 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 Mitral valve insufficiency PAD (peripheral artery disease) Premature atrial contractions Right carotid bruit Subclavian artery stenosis, left (~10/15/19) Thrombocytopenia Thrombocytopenia Thyroid disease Ulcerative colitis Upper GI bleed Upper GI bleed Walker as ambulation aid Wears glasses Wears hearing aid Home Medications ferrous sulfate 325 mg (65 mg iron) tablet 325 mg PO DAILY vitamin 05/28/15 [History Last Taken 05/09/20] vitamin B complex 1 each PO DAILY vitamin 02/07/16 [History Last Taken 05/09/20] levothyroxine 50 mcg tablet 75 mcg PO DAILY thyroid 06/13/20 [History Last Taken Unknown] amiodarone 200 mg tablet 100 mg PO DAILY heart 12/03/22 [History Last Taken Unknown] carvedilol 3.125 mg tablet 3.125 mg PO BID heart 12/03/22 [History Last Taken Unknown] acetaminophen 500 mg tablet 1,000 mg (2 x 500 mg) PO Q6H PRN PRN Pain Score 1-5 #0 tabs 12/19/22 [Rx Last Taken Unknown] arginine 7 gram-glutam 7 gram-CaHMB 1.5 [id number]-[id number]-min oral pwd pkt (Fletcher (with collagen)) 1 packet PO BIDCM #0 ea 12/19/22 [Rx Last Taken Unknown] menthol 0.44 %-zinc oxide 20.6 % topical ointment (Calmoseptine) 1 applic topical BID #0 grams 12/19/22 [Rx Last Taken Unknown] nystatin 100,000 unit/gram topical powder (Nyamyc) 1 applic topical BID #0 grams12/19/22 [Rx Last Taken Unknown] tramadol 50 mg tablet 50 mg PO Q6H PRN PRN Pain Score 6-10 3 days #12 tabs 12/19/22 [Rx Last Taken Unknown] amlodipine 10 mg tablet 10 mg PO DAILY 04/14/23 [History Last Taken Unknown] aspirin 81 mg tablet,delayed release 81 mg PO DAILY 04/14/23 [History Last Taken Unknown] atorvastatin 40 mg tablet (Lipitor) 40 mg PO DAILY cholesterol #90 tabs 04/14/23[Rx Last Taken Unknown] balsalazide 750 mg capsule (Colazal) 2,250 mg PO BID 04/14/23 [History Last Taken Unknown] chlorthalidone 25 mg tablet 25 mg PO DAILY 04/14/23 [History Last Taken Unknown] hydralazine 50 mg tablet 50 mg PO BID 04/14/23 [History Last Taken Unknown] lisinopril 20 mg tablet 20 mg PO DAILY 04/14/23 [History Last Taken Unknown] Allergy/AdvReac Type Severity Reaction Status Date / Time hydrochlorothiazide Allergy Severe Rash Verified 04/14/23 14:32 furosemide [From Lasix] Allergy Severe Verified 04/14/23 14:32 Rash Itchy lovastatin [From Mevacor] Allergy Rash Verified 04/14/23 14:32 amlodipine AdvReac Swelling Verified 04/14/23 14:32 Family History Father CAD (coronary artery disease) Mother Cancer breast Surgical History Aortocoronary bypass status (~02/12/17) History of cardiac catheterization History of hand surgery History of right inguinal hernia repair History of umbilical hernia repair History of vasectomy Hx of CABG Hx of colonoscopy Hx of esophagogastroduodenoscopy Hx of heart bypass surgery S/P right inguinal hernia repair S/P umbilical hernia repair, follow-up exam Status post insertion of drug-eluting stent into right coronary artery for coronary artery disease (~04/2009) Social History adopted: No household members: spouse housing: house number of children: 2 current occupational status: retired Smoking Status: Former smoker Tobacco: How many years used: 50 (stopped about 10 yrs ago) how long ago did patient quit smokin years ago alcohol intake: current alcohol intake frequency: 3 or more drinks per day Alcohol type: beer, wine and hard liquor substance use type: does not use caffeine: Yes Type: coffee Number of servings: 2 Vital Signs Vital Signs Vital Signs: 04/16/23 13:07 Temperature 97 F L Temperature Source Temporal Pulse Rate 58 L Respiratory Rate 20 H Blood Pressure 138/43 H Blood Pressure Mean 74 Blood Pressure Source Monitor Physical Exam Narrative Vascular: DP and PT pulses are faintly palpable. CFT is delayed. Evidence of hemosiderin deposits appreciated bilateral lower extremity. Skin temperature great is warm to warm from proximal ankle to distal digit. No focal increase noted. Neurological: Light touch intact. Epic or station is diminished. Patient does not respond to painful stimuli. Dermatological: Eschar appreciated to the left heel with no evidence of erythemaor proximal streaking nor drainage. Evidence of partial-thickness wound to the dorsal aspect left heel with hyperkeratotic periwound. After debridement of theheel eschar the wound base is fibrogranular nature. No drainage or probe to bone. No sign of infection. After debridement the left dorsal foot wound base is 100% granular nature with no sign of infection. The left heel ulceration measures 1.5 x 2.8 x 0.2 cm. The left dorsum ulceration measures 1.0 x 0.5 x 0.1 cm. Excisional debridement of the left heel ulceration down to and including subcutaneous tissue with #15 blade without incident. Predebridement measurementis eschar. Postdebridement measurement is 1.5 x 2.8 x 0.2 cm. Excisional debridement of the left dorsum ulceration down to and including subcutaneous tissue with a #15 blade without incident. Predebridement measurement is 0.8 x 0.4 x 0.1 cm. Postdebridement measurement is 1.0 x 0.5 x 0.1 cm. Musculoskeletal: No pain on palpation or with sharp debridement to both ulcerations to the left foot. No pain with calf compression. Debridement Note Debridement Note Debridement Free Text: Excisional debridement of the left heel ulceration down to and including subcutaneous tissue with #15 blade without incident. Predebridement measurement is eschar. Postdebridement measurement is 1.5 x 2.8 x 0.2 cm. Excisional debridement of the left dorsum ulceration down to and including subcutaneous tissue with a #15 blade without incident. Predebridement measurement is 0.8 x 0.4 x 0.1 cm. Postdebridement measurement is 1.0 x 0.5 x 0.1 cm. Post-Debridement Measurements and Additional Note: Post-Debridement Measurements/Treatment STEVE - Nurse 1 - General Ulcer Assessment Start: 04/16/23 13:07 Freq: Status: Active Protocol: SURYAEXT Activity Type Activity Date Activity User E-sign Co-sign Detail Recorded Client Recorded Date Recorded By Document 04/16/23 13:07 DL Desktop 04/16/23 13:36 DL 04/16/23 13:07 WC - Today's Visit Information Type of service Initial Visit Arrival Mode Ambulatory, Walker Transfer Assistance None Patient Identification Verified (Name & Yes ) Patient Requires Transmission-Based No Precautions Safety Precautions Fall Prevention Vital Signs Temperature (97.8 F-99.1 F) 97 F L Temperature Source Temporal Pulse Rate (60-100) 58 L Pulse Location Monitor Respiratory Rate (12-18) 20 H Respiratory rate source Observation Blood Pressure (90/60-120/80) 138/43 H Blood Pressure Mean 74 Source Monitor History Since Last Visit- (Skip if this is Patient's initial visit) Left Footwear Slipper Right Footwear Slipper Pain Scale: 0-10 Numeric Is Patient Pain Free? Yes Lower Extremity Assessment/ Foot Assessment/ Toe Nail Assessment Left -Posterior Tibial Palpable No -Dorsalis Pedis Palpable No -Extremity Color Hyperpigmented, Hemosiderin -Dependent Rubor No -Blanched when Elevated No -Lipodermatosclerosis No -Other Deformity No -Prior Foot Ulcer No -Charcot Joint No -Prior Amputation No -Thick Yes -Discolored Yes -Deformed Yes -Improper Length & Hygeine No Right -Extremity Color Hyperpigmented, Hemosiderin -Hair Growth on Legs No -Hair Growth on Toes No -Temperature of Extremity Warm -Capillary Refill Greater than 3 Seconds -Dependent Rubor No -Blanched when Elevated No -Lipodermatosclerosis No -Other Deformity No -Prior Foot Ulcer No -Charcot Joint No -Prior Amputation No -Thick Yes -Discolored Yes -Deformed Yes -Improper Length & Hygeine No Neuropathy Assessment Feet - Top Side and Bottom <Entered> (a) Communication Assessment Preferred language Danish Able to Read Yes Able to Write Yes Right Hearing Abillity Hard of Hearing ,Use of Hearing Aid Left Hearing Abillity Hard of Hearing ,Use of Hearing Aid Visual Assistive Devices Glasses Teaching Assessment Preferences Verbal,Written Barriers to Learning None Readiness To Learn Good Willingness to Engage in Self Management Med Activies Readiness to Engage in Self Management Med Activities Anxiety Level Calm Cooperation Cooperative Perception Coherent Interest in Health Problem Asks Questions Education Importance Acknowledges Need Smoking Status Former smoker Is Patient Diabetic No Functional Assessment Recent Decline in Ability to Perform Denies Any Declines Culture/Amish/Biogeographer Cultural/Amish Needs that may affect No Treatment Plan Would you allow our hospital salesperson men's and boys' clothing to No meet you for the purpose of spiritual/ emotional support? Biogeographer to contact place of rastafari No Teaching: Wound Center Discharge Instructions -Person Taught Patient Dressing Your Wound -Person Taught Patient *Welcome to the Wound Center -Person Taught Patient (a) 1 - + WC - Nurse 1 - General Ulcer Measurement Start: 04/16/23 13:07 Freq: Status: Active Protocol: Activity Type Activity Date Activity User E-sign Co-sign Detail Recorded Client Recorded Date Recorded By Document 04/16/23 13:07 DL Desktop 04/16/23 13:36 DL 04/16/23 13:07 Wound Center Nurse 1 #2 L Heel -Current Size (cm) - Length 3 -Current Size (cm) - Width 3 -Current Size (cm) - Depth 0.1 -Total Square Cm 9 -Photo Taken Yes -Classification - Thickness Unclassifiable (Eschar Covered ) -Exudate Amt None Present -Wound Margin Thickened -Granulation Amt None Present (0 %) -Necrosis Amt Large (67-100%) -Necrotic Tissue Type Eschar -Structure Exposed N/A -Texture (Adelina-wound Skin Appearance) Scarring -Moisture (Adelina-wound Skin Appearance) Dry/Scaly -Color (Adelina-wound Skin Appearance) Hemosiderin Staining -Temperature (Adelina-wound Skin No Abnormality Appearance) (Pt Warm) -Tenderness on Palpation (Adelina-wound No Skin Appearance) -Ulcer Cleansing Not Cleansed -Foul Odor after Cleansing No -Anesthetic Used 5% Lidocaine Gel #1 L Dorsal foot -Current Size (cm) - Length 0.7 -Current Size (cm) - Width 1 -Current Size (cm) - Depth 0.1 -Total Square Cm 0.7 -Photo Taken Yes -Exudate Amt Small -Exudate Type Serosanguineous -Wound Margin Distinct, Outline Attached -Granulation Amt Small (1-33%) -Granulation Quality [place] -Necrosis Amt None Present (0 %) -Structure Exposed N/A -Texture (Adelina-wound Skin Appearance) Localized Edema ,Scarring -Moisture (Adelina-wound Skin Appearance) Dry/Scaly -Color (Adelina-wound Skin Appearance) Hemosiderin Staining -Temperature (Adelina-wound Skin No Abnormality Appearance) (Pt Warm) -Tenderness on Palpation (Adelina-wound No Skin Appearance) -Ulcer Cleansing Soap and Water -Foul Odor after Cleansing No -Anesthetic Used 5% Lidocaine Gel Right Calf (cm) 33.5 Right Ankle (cm) 21 Left Calf (cm) 32 Left Ankle (cm) 21.3 WC - Nurse 2 - General Ulcer CM Notes Start: 04/16/23 13:07 Freq: Status: Active Protocol: Activity Type Activity Date Activity User E-sign Co-sign Detail Recorded Client Recorded Date Recorded By Document 04/16/23 14:10 Laptop 04/16/23 14:17 04/16/23 14:10 Wound Center Nurse 2 #2 L Heel -Time 14:13 -Correct Patient Yes -Correct Side, Site, Position Yes -Correct Procedure Yes -Procedure Performed Yes -Type of Procedure Debridement -Clinical Debridement Subcutaneous -Tissue Removed Subcutaneous -Post Debridement (cm) - Length 1.5 -Post Debridement (cm) - Width 2.8 -Post Debridement (cm) - Depth 0.2 -Total Square (Post) (cm) 4.20 -Area of Debridement (cm) - Length 1.5 -Area of Debridement (cm) - Width 2.8 -Total Square (Area) (cm) 4.20 -Tunneling No -Undermining/Tunneling No -Circular Undermining No -Wound/Ulcer Outcome Not Healed -Ulcer Cleansing Rinsed/ Irrigated with Saline -Foul Odor after Cleansing No -Bioengineered Tissue No -Bleeding Controlled with Pressure -Treatment Response Procedure Tolerated Well -Offloading No -Debridement - Subq, 1st 20sq cm Yes #1 L Dorsal foot -Time 14:14 -Correct Patient Yes -Correct Side, Site, Position Yes -Correct Procedure Yes -Procedure Performed Yes -Type of Procedure Debridement -Clinical Debridement Subcutaneous -Tissue Removed Subcutaneous -Post Debridement (cm) - Length 1.0 -Post Debridement (cm) - Width 0.5 -Post Debridement (cm) - Depth 0.1 -Total Square (Post) (cm) 0.50 -Area of Debridement (cm) - Length 1.0 -Area of Debridement (cm) - Width 0.5 -Total Square (Area) (cm) 0.50 -Tunneling No -Undermining/Tunneling No -Circular Undermining No -Wound/Ulcer Outcome Not Healed -Ulcer Cleansing Rinsed/ Irrigated with Saline -Foul Odor after Cleansing No -Bioengineered Tissue No -Bleeding Controlled with Pressure -Treatment Response Procedure Tolerated Well -Offloading No -Debridement - Subq, 1st 20sq cm No Pain Scale: 0-10 Numeric Is Patient Pain Free? Yes - Nurse 3 - General Ulcer D/C NN Start: 04/16/23 13:07 Freq: Status: Active Protocol: Activity Type Activity Date Activity User E-sign Co-sign Detail Recorded Client Recorded Date Recorded By Document 04/16/23 14:24 [facility] Desktop 04/16/23 14:27 [facility] 04/16/23 14:24 Wound Care Center Nurse 3 #2 L Heel -Ulcer Cleansing Rinsed/ Irrigated with Saline -Foul Odor after Cleansing No -Other Dressing hydrogel -Primary Dressing Covered/Secured with Dry Gauze & Roll Gauze, Secured with Tape -Other Covering per dl glass frame fitter #1 L Dorsal foot -Ulcer Cleansing Rinsed/ Irrigated with Saline -Foul Odor after Cleansing No -Other Dressing antibiotic oint -Primary Dressing Covered/Secured with Dry Gauze & Roll Gauze, Secured with Tape -Other Covering per dl glass frame fitter Treatment Response Procedure Tolerated Well Pain Scale: 0-10 Numeric Is Patient Pain Free? Yes - Visit Discharge Discharge Condition Stable Ambulatory Status Ambulatory, Walker Transportation Private Auto Lab / [facility] 04/16/23 15:05 04/16/23 15:05 Assessment/Plan Assessment/Plan (1) Non-pressure 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: CODE(S): L97.422 - Non-pressure 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 PLAN: Patient was examined evaluated. All findings were discussed with the patient. All questions were answered to the patient satisfaction. Excisional debridement of the left heel ulceration down to and including subcutaneous tissue with #15 blade without incident. Predebridement measurementis eschar. Postdebridement measurement is 1.5 x 2.8 x 0.2 cm. Excisional debridement of the left dorsum ulceration down to and including subcutaneous tissue with a #15 blade without incident. Predebridement measurement is 0.8 x 0.4 x 0.1 cm. Postdebridement measurement is 1.0 x 0.5 x 0.1 cm. Patient will be given a prescription for Santyl to be applied nickel thick with moist gauze and dry sterile dressing to the left heel. Patient will apply triple ointment antibiotic and a Band-Aid to the left dorsum ulceration. Patient is to ambulate and offload the left lower extremity as tolerated. Patient will be given a order for vascular studies PVRs and venous reflux for baseline levels. Patient was understanding. Follow-up in 1 week for evaluation. We will be authorizing EpiFix mesh to be applied to the left heel. (2) Peripheral vascular disease: CODE(S): I73.9 - Peripheral vascular disease, unspecified 04/16/23 [id number] <Electronically signed by Warren Sampson DPM> Cosigner Signature (if applicable): CC: ~ Signed [facility] Work Phone: [phone] 540-706407-26-2023 Miscellaneous Notes* Telephone Encounter - Jean Paul Mares - 01/22/2023 4:28 PM EDT Called usp * Telephone Encounter - Jean Paul Mares - 01/13/2023 4:42 PM EDT Images from the original note were not included. Received: 3 days ago Boroke Edwards Charlotte J Previous Messages ----- Message ----- From: Irina Andres Sent: 01/10/2023 12:31 PM EDT To: Ortho Triage Pool Subject: Orthopedics / Open Leg: Pain / Post Op Withi* Subject Line Format: Orthopedics / [Provider Name or Open & Body Part] / [Issue] Patient has been identified by name and Date of (Y/N): y Patient: Amaury Blank Date of : 1940 Previous Provider Seen: mag Body Part(s) Identified: leg Diagnosis/Reason For Visit: post op Reason for the call/escalation: pt is staying at [facility] in [place].estefania called to schedule pt a post op appt tool will not allow scheduling If reason for call/escalation is discharge from ED/ER or Hospital, which facility was the patient seen at: na Was an appointment scheduled (Y/N): n Person calling if other than patient: na Return call to if other than patient: linda Best contact number: [phone] Thank you, Irina Andres January 10, 2023 12:03 PM documented [facility] NoteHNO ID: [id number] Author: Azucena Vo APRN.CNP Service: ? Author Type: Nurse Practitioner Type: Progress Notes Filed: 01/22/2023 12:19 PM Note Text: NEUROSURGERY FOLLOW UP OFFICE NOTE Azucena Vo APRN.CNP Date of visit: January 22, 2023 Patient Name: Mr.Vincent Calvin Blank Date of : 1940 Current Age: [age] year old Sex: male MRN/E# [id number] Last Office Visit: Hospital follow-up Chief Complaint: Patient presents with: Hospital Follow Up The patient presents for a hospital follow up with imaging (CT B) for evaluation. This is an 82-year-old male with a PMHx of CAD, GI bleed, HTN, HLD, hypothyroidism, PAD and UC who was seen for consult on 01/03/[address] Westfall after a ground-level fall at home. Patient stated that he was getting up to use the bathroom with assistance of his walker. Unfortunately he tripped causing him to fall backwards and strike the back of his head. He also reported a previous fall about 1 month earlier. He denied any difficult neurological complaints but stated that he was having left hip pain. He denied any use of blood thinning medications. Work-up was completed and demonstrated a small IPH as well as a left intertrochanteric fracture. No surgical intervention was indicated for the parenchymal bleed and he was cleared for surgical intervention with orthopedic surgery for his hip fracture. Upon further imaging review there was note of surrounding edema at the left frontal ICH and MRI of the brain without and with contrast enhancement was recommended to rule out metastatic disease. Once completed there was no evidence of underlying mass or lesion. No neurosurgical intervention was indicated and recommendation was to follow-up in [address] repeat [address] brain prompting his visit today. Since discharge he states he is overall doing well denies any complaints or concerns such as headache, dizziness, speech deficits, seizure activity, motor or sensory changes. He is currently in a rehabilitation facility working with PT/OT after his left hip surgery for fracture. He presents for image review, evaluation and plan of care. Smoker: Former Diabetic: No Anticoagulants / Antiplatelets: None Occupation: N/A Symptoms: None PREVIOUS CONSERVATIVE TREATMENTS: Rehabilitation -PT/OT PREVIOUS SURGERY: None PAIN EVALUATION No data found in the last 1 encounters. PAST MEDICAL HISTORY Diagnosis Date CAD (coronary artery disease) History of GI bleed HTN (hypertension) Hyperlipidaemia Hypothyroidism PAD (peripheral artery disease) (HCC) UC (ulcerative colitis) (HCC) PAST SURGICAL HISTORY Procedure Laterality Date PAST SURGICAL HISTORY OF Right 1966 right hand PAST SURGICAL HISTORY OF Right 2004 right flank chronic inflammed tissue PAST SURGICAL HISTORY OF multiple skin bx--benign FAMILY HISTORY Problem Relation Age of Onset Colon Cancer Paternal Grandfather Breast Cancer Mother ALLERGIES Allergen Reactions Amlodipine Rash Lovastatin Hives Current Outpatient Medications Medication Sig Dispense Refill acetaminophen (TYLENOL EXTRA STRENGTH) 500 mg tablet Take 1,000 mg by mouth every 8 hours as needed for pain. aspirin, enteric coated (ASPIRIN, ENTERIC COATED) 81 mg EC tablet Take 81 mg by mouth once daily. carvedilol (COREG) 3.125 mg tablet Take 1 tablet by mouth twice daily. nystatin (MYCOSTATIN) cream oxyCODONE IR (ROXICODONE) 5 mg immediate release tablet Take 5 mg by mouth every 6 hours as needed for pain. senna-docusate (SENNA PLUS) 8.6-50 mg per tablet Take 1 tablet by mouth once daily. traMADol (ULTRAM) 50 mg tablet Take 1 tablet by mouth every 6 hours as needed. lisinopril (ZESTRIL) 10 mg tablet Take 10 mg by mouth once daily. amiodarone (PACERONE) 200 mg tablet Take 1 tablet by mouth once daily. ergocalciferol 50,000 unit capsule (VITAMIN D2, DRISDOL) Take 1 capsule by mouth one time a week for 6 doses. 6 capsule 0 levothyroxine (SYNTHROID) 75 mcg tablet Take 1 tablet by mouth DAILY (6 AM). AZATHIOPRINE (AZASAN ORAL) Take 50 mg by mouth once daily. balsalazide (COLAZAL) 750 mg capsule Take 2,250 mg by mouth three times daily. atorvastatin (LIPITOR) 40 mg tablet Take 40 mg by mouth once daily. ezetimibe (ZETIA) 10 mg tablet Take 10 mg by mouth once daily. ferrous sulfate 325 mg (65 mg iron) tablet Take 325 mg by mouth daily with breakfast. Zinc Gluconate 50 mg tablet Take 50 mg by mouth once daily. acetaminophen (TYLENOL) 325 mg tablet Take 3 tablets by mouth every 6 hours. 360 tablet 0 carvedilol (COREG) 12.5 mg tablet Take 12.5 mg by mouth twice daily with meals. lisinopril (ZESTRIL) 20 mg tablet Take 20 mg by mouth twice daily. No current facility-administered medications for this visit. REVIEW OF SYSTEMS Review of Systems Constitutional: Negative for chills, diaphoresis (Negative for night sweats.) and fever. HENT: Negative for ear discharge and rhinorrhea. Eye (more content not included)...[facility]07-26-2023 History of Present illness Narrative* Azucena Vo APRN.CNP - 01/22/2023 11:30 AM EDT NEUROSURGERY FOLLOW UP OFFICE NOTE Azucena Vo APRN.CNP Date of visit: January 22, 2023 Patient Name: Mr.Vincent Calvin Blank Date of : 1940 Current Age: [age] year old Sex: male MRN/E# [id number] Last Office Visit: Hospital follow-up Chief Complaint: Patient presents with: Hospital Follow Up The patient presents for a hospital follow up with imaging (CT B) for evaluation. This is an 82-year-old male with a PMHx of CAD, GI bleed, HTN, HLD, hypothyroidism, PAD and UC who was seen for consult on 01/03/[address] Westfall after a ground-level fall at home. Patient stated that he was getting upto use the bathroom with assistance of his walker. Unfortunately he tripped causing him to fall backwards and strike the back of his head. He also reported a previous fall about 1 month earlier. He denied any difficult neurological complaints but stated that he was having left hip pain. He denied any use of blood thinning medications. Work-up was completed and demonstrated a small IPH as well as a left intertrochanteric fracture. No surgical intervention was indicated for the parenchymal bleed and he was cleared for surgical intervention with orthopedic surgery for his hip fracture. Upon further imaging review there was note of surrounding edema at the left frontal ICH and MRI of the brain without and with contrast enhancement was recommended to rule out metastatic disease. Once completedthere was no evidence of underlying mass or lesion. No neurosurgical intervention was indicated andrecommendation was to follow-up in [address] repeat [address] brain prompting his visit today. Since discharge he states he is overall doing well denies any complaints or concerns such as headache, d izziness, speech deficits, seizure activity, motor or sensory changes. He is currently in a rehabilitation facility working with PT/OT after his left hip surgery for fracture. He presents for image review, evaluation and plan of care. Smoker: Former Diabetic: No Anticoagulants / Antiplatelets: None Occupation: N/A Symptoms: None PREVIOUS CONSERVATIVE TREATMENTS: Rehabilitation -PT/OT PREVIOUS SURGERY: None PAIN EVALUATION No data found in the last 1 encounters. PAST MEDICAL HISTORY Diagnosis Date CAD (coronary artery disease) History of GI bleed HTN (hypertension) Hyperlipidaemia Hypothyroidism PAD (peripheral artery disease) (HCC) UC (ulcerative colitis) (HCC) PAST SURGICAL HISTORY Procedure Laterality Date PAST SURGICAL HISTORY OF Right 1966 right hand PAST SURGICAL HISTORY OF Right 2004 right flank chronic inflammed tissue PAST SURGICAL HISTORY OF multiple skin bx--benign FAMILY HISTORY Problem Relation Age of Onset Colon Cancer Paternal Grandfather Breast Cancer Mother ALLERGIES Allergen Reactions Amlodipine Rash Lovastatin Hives Current Outpatient Medications Medication Sig Dispense Refill acetaminophen (TYLENOL EXTRA STRENGTH) 500 mg tablet Take 1,000 mg by mouth every 8 hours as neededfor pain. aspirin, enteric coated (ASPIRIN, ENTERIC COATED) 81 mg EC tablet Take 81 mg by mouth once daily. carvedilol (COREG) 3.125 mg tablet Take 1 tablet by mouth twice daily. nystatin (MYCOSTATIN) cream oxyCODONE IR (ROXICODONE) 5 mg immediate release tablet Take 5 mg by mouth every 6 hours as needed for pain. senna-docusate (SENNA PLUS) 8.6-50 mg per tablet Take 1 tablet by mouth once daily. traMADol (ULTRAM) 50 mg tablet Take 1 tablet by mouth every 6 hours as needed. lisinopril (ZESTRIL) 10 mg tablet Take 10 mg by mouth once daily. amiodarone (PACERONE) 200 mg tablet Take 1 tablet by mouth once daily. ergocalciferol 50,000 unit capsule (VITAMIN D2, DRISDOL) Take 1 capsule by mouth one time a week for 6 doses. 6 capsule 0 levothyroxine (SYNTHROID) 75 mcg tablet Take 1 tablet by mouth DAILY (6 AM). AZATHIOPRINE (AZASAN ORAL) Take 50 mg by mouth once daily. balsalazide (COLAZAL) 750 mg capsule Take 2,250 mg by mouth three times daily. atorvastatin (LIPITOR) 40 mg tablet Take 40 mg by mouth once daily. ezetimibe (ZETIA) 10 mg tablet Take 10 mg by mouth once daily. ferrous sulfate 325 mg (65 mg iron) tablet Take 325 mg by mouth daily with breakfast. Zinc Gluconate 50 mg tablet Take 50 mg by mouth once daily. acetaminophen (TYLENOL) 325 mg tablet Take 3 tablets by mouth every 6 hours. 360 tablet 0 carvedilol (COREG) 12.5 mg tablet Take 12.5 mg by mouth twice daily with meals. lisinopril (ZESTRIL) 20 mg tablet Take 20 mg by mouth twice daily. No current facility-administered medications for this visit. REVIEW OF SYSTEMS Review of Systems Constitutional: Negative for chills, diaphoresis (Negative for night sweats.) and fever. HENT: Negative for ear discharge and rhinorrhea. Eyes: Negative for discharge. Respiratory: Negative for cough, shortness of breath and wheezing. Cardiovascular: Negative for chest pain, palpitations and leg swelling. Gastrointestinal: Negative for constipation, diarrhea, nausea and vomiting. Endocrine: Negative for cold intolerance and heat intolerance. Genitourinary: Negative for frequency. Negative for urinary incontinence and urinary retention. Musculoskeletal: Positive for gait problem. Negative for back pain, joint swelling, myalgias and neck pain. Skin: Negative for rash (Negative for hives and skin lesions.). Allergic/Immunologic: Negative for environmental allergies and food allergies. Negative for contact allergy, seasonal allergies. Neurological: Positive for light-headedness. Negative for dizziness, seizures, syncope, weakness, numbness (Negative for numbness in extremities.) and headaches. Hematological: Does not bruise/bleed easily. Psychiatric/Behavioral: The patient is not nervous/anxious. Negative for depression. OBJECTIVE: BP 87/51 Pulse 66 Ht 5' 10 (1.78m) Wt 165 lb 5.5 oz (75.0kg) SpO2 98% BMI 23.72 kg/(m^2). PHYSICAL EXAM: Mental State : Alert, memory function unremarkable. Attention span and concentration normal for patient's age. Speech normal, no receptive or expressive speech deficit. Recent and remote memory normal. Orientation : Oriented to person, place and time. Higher Cortical Function : Intact speech and language. Spontaneous speech and comprehension normal.Fund of knowledge intact for pt level of education. Cranial Nerves : II: No visual field cut no blurring, Makes and sustains eye contact III, IV, : Normal, no double vision or drooping. Pupils equal and reactive to light. Extraocularmuscles intact. No nystagmus V: Normal sensation on the face, normal jaw movements VII: No paresis on either side VIII: No gross hearing deficit IX: Good and equal shoulder shrugs XII: Tongue midline, no fasciculations Sensory: Normal Sensation in upper and lower extremities and trunk to touch and noxious stimuli. Motor: Normal muscle tone and bulk. No tremor or uncontrollable movements. No spasticity or tremor. Strength: Upper Extremities : R L Deltoid 5/5 5/5 Biceps 5/5 5/5 Triceps 5/5 5/5 Wrist Ext 5/5 5/5 Wrist Flx 5/5 5/5 Hand Int 5/5 5/5 Lower Extremities : Hip Flexors 5/5 5/5 Hip Extensors 5/5 5/5 Hip Abductors 5/5 5/5 Straight leg Neg Neg Ankle dorsiflex 5/5 5/5 Ankle Plantar 5/5 5/5 Heel Walking intact intact Toe Walking intact intact Reflexes : Biceps 2+ 2+ Triceps 2+ 2+ Wrist 2+ 2+ Patellar 2+ 2+ Achilles 2+ 2+ Canada's Neg Neg Tinel's Neg Neg Phalen's Neg Neg Cerebellar Function : Normal finger to nose. Normal rapid alternating movements. No ataxia. Negative Romberg. Gait and Station: Wheelchair -left hip ORIF. no assistive device usage. Pulmonary: Lungs without cough, audible wheeze. Respirations unlabored. Cardiac: Regular rate and rhythm. No murmer, gallop or rub. Data Review IMAGING STUDIES: CT Brain WO IVCON performed on 01/20/23 demonstrates: IMPRESSION: No acute intracranial abnormality. Specifically no evidence of interval intracranial hemorrhage. Interval evolution of the previous acute infarct in left frontal pole to encephalomalacia. Personal review of medical records: I reviewed with the patient, history, physical exam, the imagesand the chart. ASSESSMENT/PLAN: (I62.9) Intracranial hemorrhage (HCC) (primary encounter diagnosis) Comment: The patient presents today for a hospital follow-up with CT head. Reports that he is overall doing well and denies any neurological complaints or concerns. He is currently admitted to a rehab facility where he is working on his strength after a left hip ORIF. He denies any specific headaches or new weaknesses. Neurologically he is intact on exam without focal deficit. Today he is reporting episodes of dizziness and is hypotensive. States that he was recently started on 3 additional blood pressure medications in addition to his 2 medications for an episode of hypertension. He has a follow-up visit with cardiology this Friday and in the meantime his medications were cut in half at the rehab facility. I told him to make sure that he follows up as scheduled. I reviewed his CT brain and compared to previous imaging. This demonstrated no acute hemorrhage. There has been resolution ofthe previously noted left frontal bleed. At this point no further follow-up is indicated. I told him he may contact the office in the future should the need arise. All of his questions and concerns were addressed in detail. Plan: Follow up as needed LORENE Waters Neurosurgery Nurse Practitioner [facility] General Follow Up: Return for new or worsening symptoms. documented in this encounterSalem [facility] Hospital2023 NoteHNO ID: [id number] Author: Priscilla Mejia RT(Calvin) Service: ? Author Type: Cow Buyer Type: Progress Notes Filed: 01/20/2023 12:06 PM Note Text: Radiology Service Progress Note PATIENT NAME: Amaury Blank DATE OF SERVICE: January 20, 2023 TIME: 12:06 PM PATIENT IDENTITY VERIFICATION COMPLETED USING TWO (2) IDENTIFIERS: Name and Date of confirmed by patient verbally. FALL SCREENING: Has the patient had 2 falls in the last year or 1 fall with injury or currently using an Ambulatory Assistive Device (Walker, Cane, Wheelchair, Crutches, etc.)? No PATIENT GENDER DATA: Male PATIENT RELEVANT IMPLANT DATA REVIEWED: Yes RADIOLOGY DEPARTMENT: CT; Exam(s) Completed: Brain PERIPHERAL IV DATA: Not applicable SIGNED BY: RT Yenny(R) January 20, 2023 12:06 [facility]2023 History of Present illness Narrative* Priscilla Mejia RT(R) - 01/20/2023 11:20 AM EDT Radiology Service Progress Note PATIENT NAME: Amuary Blank DATE OF SERVICE: January 20, 2023 TIME: 12:06 PM PATIENT IDENTITY VERIFICATION COMPLETED USING TWO (2) IDENTIFIERS: Name and Date of confirmedby patient verbally. FALL SCREENING: Has the patient had 2 falls in the last year or 1 fall with injury or currently using an Ambulatory Assistive Device (Walker, Cane, Wheelchair, Crutches, etc.)? No PATIENT GENDER DATA: Male PATIENT RELEVANT IMPLANT DATA REVIEWED: Yes RADIOLOGY DEPARTMENT: CT; Exam(s) Completed: Brain PERIPHERAL IV DATA: Not applicable SIGNED BY: RT Yenny(Calvin) January 20, 2023 12:06 PM documented in this encounterSalem City Hospital07-13-2023 NoteHNO ID: [id number] Author: Nancy Newton RN Service: Care Management Author Type: Registered Nurse Type: Care Mgt Progress Note Filed: 01/09/2023 1:50 PM Note Text: CARE MANAGEMENT DISCHARGE NOTE SERVICE DATE: January 09, 2023 SERVICE TIME: 1:46 PM Admission Date: 01/03/2023 LOS: 6 days Discharge Arrangement Discharge Arrangement: Residential Facility Was an expedited discharge program used?: Yes Type: Medicare ACO 3 Day Waiver Services Arranged Provider Name: Yadiel Thorpe Phone: Caregiver Assessment Caregiver is ready, willing and able to meet the patient's needs as recommended by the inter-professional team: Yes Name of Caregiver: self Transportation Arrangements Transportation Arrangements: Ambulance Transportation Agency and Phone #:: [facility] ( [facility] ) [phone] / [phone] Date of Trip: 01/09/23 Time of Trip: 1300 Type of Service: BLS Non-emergency Is Patient Medicaid Pending?: No Was transportation financial coverage discussed with family?: Patient Anesthesiologist Physician Location: [facility] Destination: [facility] Financial Care Management Responsibility: None Handoff Communication: Additional Information: Patient discharged today, to return to [facility]. No need for 7000 as pt never went to the community. Sent dc summary and COVID. [facility] to transport via cot at 1300. Transport folder on chart notified floor RN . Updated patient at bedside, agreeable. Discharge Information Row Name ED to Hosp-Admission (Discharged) from 01/03/2023 in [facility] ORTHOPEDIC Residential Facility Agency [facility] SIGNATURE: Nancy Newton RN PATIENT NAME: Amaury Blank DATE: January 09, 2023 TIME: 1:45 PM CONTACT #: [phone] CARE MANAGEMENT PROGRESS NOTE SERVICE DATE: 01/09/2023 SERVICE TIME: 1230 LOS: 6 days IMM Follow Up Copy Given: Yes Copy given to:: Patient Method: In Person Verbalized understanding SIGNATURE: Nancy Newton RN PATIENT NAME: Amaury Blank DATE: January 09, 2023 TIME: 1:45 PM PAGER/CONTACT #: [phone]23 NoteHNO ID: [id number] Author: Errol Farfan RN Service: ? Author Type: Registered Nurse Type: Nursing Progress Note Filed: 01/09/2023 1:34 PM Note Text: Other: report called to Alison at [facility]07-13-2023 NoteHNO ID: [id number] Author: Sabine Bae APRN.CNP Service: General Surgery Author Type: Nurse Practitioner Type: Progress Notes Filed: 01/09/2023 2:11 PM Note Text: Summary: GSV DC Note Discharge Geriatric Vulnerability Screens Surgeon: Surgeon(s) and Role: * Errol Rod MD - Primary * Chrsi Franco MD - Resident - Assisting * Ricky Quintana MD - Resident - Assisting Procedure Performed: Procedure(s): INSERTION NAIL / JESSY INTERMEDULLARY FEMUR WITH C-ARM (Left) Impaired Cognition at Discharge: No Delirious at Discharge:No Impaired Functional Status at Discharge: Yes, partially impaired/dependent Impaired Mobility at Discharge:Yes Weight Bearing Status: Weight bear as tolerated left leg. Malnutrition at Discharge:No Geriatric Vulnerability Management Plan: DC SNF Geriatric vulnerability screens were reviewed by Sabine Bae APRN.BOAT REPAIRER and results were communicated to surgeon/surgical team who devised the above plan. The plan was communicated to the patient and family/caregivers: Via nursing dc instructions Patient/Caregivers were given educational material on delirium, falls, and mobility. Patient's primary doctor: Elida Borges MD This plan was communicated to the patient's primary doctor: Through Electronic Health Record (EHR) messaging Disposition: [facility] NoteHNO ID: [id number] Author: Antwan Andres PA-C Service: General Surgery Author Type: Physician Home Therapy Teacher Type: Progress Notes Filed: 01/09/2023 12:00 PM Note Text: Trauma Surgery Progress Note SERVICE DATE: 01/09/2023 Trauma Service Pager: For questions or concerns Mon-Fri 6a-5p please page [phone]. After 5pm and on Weekends and Holidays, please page [phone] if in ICU or [phone] if on RNF. SUBJECTIVE: NAEON. Patient denied any pain this morning. Plan for discharge to a SNF this afternoon. He is tolerating his diet and having bowel function. He denied any CP, SOB, N/V, ABD pain, fevers, chills, or cough. OBJECTIVE: Vitals: Temp (24hrs), Av.6 ?C (97.8 ?F), Min:36.3 ?C (97.3 ?F), Max:36.9 ?C (98.4 ?F) BP 124/57 Pulse 68 Temp 36.5 ?C (97.7 ?F) (Oral) Resp 18 Ht 177.8 cm (5' 10) Wt 75.1 kg (165 lb 9.1 oz) SpO2 95% BMI 23.76 kg/m? O2 Therapy: Room Air IANDO: Date 01/08/23699 - 01/09/2365801/09/23699 - 01/10/23 0659 Shift 2667-0300 4851-2415 9502-3786 24 Hour Total 5079-7013 2762-8038 4140-3113 24 Hour Total INTAKE PO 240 240 480 PO 240 240 480 Shift Total 240 240 480 OUTPUT Urine 450 100 400 950 Void (ml) 450 100 400 950 Drains 0 0 Output (mL) (Negative Pressure Wound Therapy Foot Anterior;Left) 0 0 Shift Total 450 100 400 950 Weight (kg) 75.1 75.1 75.1 75.1 75.1 75.1 75.1 75.1 MEDICATIONS Current Facility-Administered Medications Medication Dose Route Frequency lisinopril 20 mg tab(s) (ZESTRIL) 20 mg ORAL DAILY heparin 5,000 Units injection 5,000 Units SUBCUTANEOUS q 8 H oxyCODONE IR 2.5-5 mg tab(s) (ROXICODONE) 2.5-5 mg ORAL q 6 H PRN lidocaine 4 % 1 Patch (SALONPAS) 1 Patch TRANSDERMAL DAILY AT 9 PM And lidocaine patch - REMOVE OTHER DAILY And lidocaine - VERIFY PATCH OTHER q 8 H ferrous sulfate 325 mg tab(s) 325 mg ORAL DAILY WITH BREAKFAST senna-docusate 8.6-50 mg 1 tablet (SENNA-S) 1 tablet ORAL BID ergocalciferol (vitamin D2) 50,000 Units cap(s) (DRISDOL) 50,000 Units ORAL 1/WK NaCl 0.9% iv flush bag 20 mL INTRAVENOUS PRN ondansetron 4 mg tab(s) (ZOFRAN) 4 mg ORAL q 6 H PRN Or ondansetron (PF) 4 mg injection (ZOFRAN) 4 mg INTRAVENOUS q 6 H PRN acetaminophen 975 mg tab(s) (TYLENOL) 975 mg ORAL q 6 H pantoprazole 40 mg injection (PROTONIX) 40 mg INTRAVENOUS DAILY (6 AM) zinc oxide 20 % TOPICAL BID amiodarone 200 mg tab(s) (PACERONE) 200 mg ORAL DAILY atorvastatin 40 mg tab(s) (LIPITOR) 40 mg ORAL AT BEDTIME carvedilol 3.125 mg tab(s) (COREG) 3.125 mg ORAL BID w MEALS levothyroxine 75 mcg tab(s) (SYNTHROID) 75 mcg ORAL DAILY (6 AM) Labs: Recent Labs 01/08/23 2338 01/08/23 0000 NA 138 137 K 4.5 4.3 CHLOR 108* 106* CO2 21* 20* BUN 44* 43* CREAT 2.14* 2.21* GLUC 107* 128* ANION 9 11 CA 8.2* 8.4* WBC 4.84 5.51 HB 7.8* 7.9* HCT 24.6* 24.5* PLT 162 160 PHYSICAL EXAM: Genl: Appears age appropriate. No acute distress. Resting comfortably. Head/Face: Normocephalic. Atraumatic. Eyes: EOMI. Sclera not icteric, not injected Resp: No audible wheezes. Breathing is non-labored on RA @95%. CVS: HR as above; 2+ pulses at RA, DP bilat. GI: Abdomen is soft, non-tender, not distended. No peritonitis. MSK: Extremities without clubbing, cyanosis, edema. Normal ROM x 4. Left thigh/hip dressing is C/D/I. Left foot dressing is C/D/I. Left foot wound vac in place. Skin: Warm and dry. Not jaundiced. Neuro: AANDOx3. Strength and sensation normal. GONZÁLES. GCS15. Psych: Normal mood. Normal affect. Appropriate insight into current situation. ASSESSMENT AND PLAN: Active Hospital Problems Diagnosis Date Noted Head injury, acute, without loss of consciousness, sequela 01/03/2023 Open wound of left foot 01/07/2023 Arterial insufficiency with ischemic ulcer (HCC) 01/07/2023 ABLA (acute blood loss anemia) 01/06/2023 Closed displaced comminuted fracture of shaft of left femur ([facility]) 01/06/2023 Malnutrition of moderate degree ([facility]) 01/05/2023 Coronary artery disease involving [place] coronary artery of [place] heart 01/04/2023 S/P CABG (coronary artery bypass graft) 01/04/2023 Atrial fibrillation ([facility]) 01/04/2023 Primary hypertension 01/04/2023 Other hyperlipidemia 01/04/2023 COPD (chronic obstructive pulmonary disease) ([facility]) 01/04/2023 Fall 01/04/2023 Stasis ulcer ([facility]) 01/03/2023 Skin tear of left elbow without complication 01/03/2023 Noninfected skin tear of left leg 01/03/2023 Alteration in skin integrity due to moisture 01/03/2023 82 year old male s/p ground level fall on 01/03/2023 Imaging performed: CT H/N, CXR, AND PXR on 01/03/[address] Brain on 01/03/2023 PXR and left hip XR on 01/04/2023 MRI Brain on 01/05/2023 Traumatic Injuries: Left side frontal subacute intraparenchymal hemorrhage Complex intertrochanteric left femur fx Operations/Procedures: 1. Insertion of left hip intramedullary femoral nail on 01/04/[address] Rod 2. Bedside wound debridement (left foot) b (more content not included)...[facility]07-13-2023 NoteHNO ID: [id number] Author: Gisell Tirado DO Service: Hospital Medicine Author Type: Physician Type: Progress Notes Filed: 01/09/2023 6:41 AM Note Text: DEPARTMENT OF HOSPITAL MEDICINE PROGRESS NOTE SERVICE DATE: 01/09/2023 SERVICE TIME: 6:39 AM Hospital Medicine/Primary Attending: Gisell Tirado DO NIGHT AND WEEKEND COVERAGE: After 7pm please page [phone] CHIEF COMPLAINT: Follow up o nMMP SUBJECTIVE: Pt seen and examined. States that he feels good. No complaints. Pt denies chest pain, shortness of breath, nausea, vomiting, or diarrhea. OBJECTIVE: PHYSICAL EXAM: BP 131/54 Pulse 64 Temp (Src) 97.5 (Oral) Resp 18 Ht 5' 10 (1.78m) Wt 165 lb 9.1 oz (75.1kg) SpO2 93% BMI 23.76 kg/(m2). O2 Therapy: Room Air General - NAD, Calm CV - RRR S1 S2, No M/R/G RESP - CTA B/L No wheezes, ronchi, rales ABD - soft, NT, ND +BS EXT - no gross joint deformity, no clubbing, cyanosis, edema NEURO - moves all 4 extremities, clear speech MEDICATIONS: Current Facility-Administered Medications Medication Dose Route Frequency NaCl 0.9% iv flush bag 20 mL INTRAVENOUS PRN ondansetron 4 mg tab(s) (ZOFRAN) 4 mg ORAL q 6 H PRN Or ondansetron (PF) 4 mg injection (ZOFRAN) 4 mg INTRAVENOUS q 6 H PRN acetaminophen 975 mg tab(s) (TYLENOL) 975 mg ORAL q 6 H pantoprazole 40 mg injection (PROTONIX) 40 mg INTRAVENOUS DAILY (6 AM) zinc oxide 20 % TOPICAL BID amiodarone 200 mg tab(s) (PACERONE) 200 mg ORAL DAILY atorvastatin 40 mg tab(s) (LIPITOR) 40 mg ORAL AT BEDTIME carvedilol 3.125 mg tab(s) (COREG) 3.125 mg ORAL BID w MEALS levothyroxine 75 mcg tab(s) (SYNTHROID) 75 mcg ORAL DAILY (6 AM) ergocalciferol (vitamin D2) 50,000 Units cap(s) (DRISDOL) 50,000 Units ORAL 1/WK ferrous sulfate 325 mg tab(s) 325 mg ORAL DAILY WITH BREAKFAST senna-docusate 8.6-50 mg 1 tablet (SENNA-S) 1 tablet ORAL BID heparin 5,000 Units injection 5,000 Units SUBCUTANEOUS q 8 H oxyCODONE IR 2.5-5 mg tab(s) (ROXICODONE) 2.5-5 mg ORAL q 6 H PRN lidocaine 4 % 1 Patch (SALONPAS) 1 Patch TRANSDERMAL DAILY AT 9 PM And lidocaine patch - REMOVE OTHER DAILY And lidocaine - VERIFY PATCH OTHER q 8 H lisinopril 20 mg tab(s) (ZESTRIL) 20 mg ORAL DAILY DATA: Diagnostic tests reviewed for today's visit: CBC: Recent Labs 01/08/23 2338 WBC 4.84 RBC 2.47* HB 7.8* HCT 24.6* PLT 162 MCV 99.6 MCH 31.6 MPV 9.7 Coags: No results for input(s): PT, INR, APTT in the last 24 hours. BMP: Recent Labs 01/08/23 2338 NA 138 K 4.5 CHLOR 108* CO2 21* BUN 44* CREAT 2.14* GLUC 107* CMP: Recent Labs 01/08/23 2338 NA 138 K 4.5 CHLOR 108* CO2 21* BUN 44* CREAT 2.14* GLUC 107* CA 8.2* ANION 9 Cardiac Enzymes: No results for input(s): CK, MB, CKMB, TROPT in the last 24 hours. Liver Function, Amylase, Lipase: No results for input(s): TPROT, ALB, ALT, AST, ALKPHOS, TBILI, AMYLASE, LIPASE, LACTATE in the last 24 hours. MG/PHOS: No results for input(s): MG, P in the last 24 hours. Renal Panel: Recent Labs 01/08/23 2338 CREAT 2.14* BUN 44* GLUC 107* CA 8.2* CHLOR 108* K 4.5 CO2 21* NA 138 Heme: No results for input(s): RETICP, ABSRETIC, LD, SYED, FE, TIBC, TRANSFERSAT in the last 24 hours. No results found for: UALBCR Estimated Creatinine Clearance: 28 mL/min (A) (based on SCr of 2.14 mg/dL (H)). Most recent labs and radiology results reviewed. Assessment/Plan POD #5 status-post L hip CMN- management per orthopedics Left frontal subacute intraparenchymal hemorrhage - management per NSGY and trauma. Needs outpatient follow up in 2 weeks CAD without angina - not on any blood thinners due to hx of bleeding. 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 Creat is 2.21 and at baseline from yesterday Acute on chronic anemia - did get 1 unit of PRBCs while here. Hb is 7.9 yesterday. Hyperkalemia - resolved Left lower extremity foot wound- bedside IANDD by podiatry. WOund vac Falls - PT OT and SNF recommended Atrial fib - unclear type. cont with amio and coreg. No OAC due to bleeding and falls Will cont to follow as marketing consultant. Can be discharged from my standpoint. Medication and Non-Pharmacologic VTE Prophylaxis/Anticoagulants Anticoagulant AND Antiplatelet Medications (From admission, onward) Start Dose Route Frequency Last Action Ordered Stop 01/07/23 0700 heparin 5,000 Units injection 5,000 Units SUBCUTANEOUS EVERY 8 HOURS Given, 01/09 0526 01/07/23 0642 -- 01/05/23 0645 activity - mobilize patient (wv,ca) 01/03/23 1400 pneumatic compression stockings ([place]) 01/03/23 1400 graduated compression stockings ([place]) Lines, Drains, and Airways Line Duration Peripheral 01/04/23 1415 Right Antecubital 20 Gauge 4 days VTE Prophylaxis: Heparin 5000 units Sub Q BID Disposition: SNF Functional Status Prior to Admit: Medical Necessity for Cont (more content not included)...[facility]07-12-2023 NoteHNO ID: [id number] Author: Nancy Newton RN Service: Care Management Author Type: Registered Nurse Type: Care Mgt Progress Note Filed: 01/08/2023 4:47 PM Note Text: CARE MANAGEMENT PROGRESS NOTE SERVICE DATE: 01/08/2023 SERVICE TIME: 4:44 PM LOS: 5 days [facility] is able to accept tomorrow with the wound vac, sent updates notes. Will not need a new 7000. Pt will need transport to SNF for tomorrow. CM to follow clinical progress. SIGNATURE: Nancy Newton RN PATIENT NAME: Amaury Blank DATE: January 08, 2023 TIME: 4:44 PM PAGER/CONTACT #: [phone] [facility] 01-08-2023 NoteHNO ID: [id number] Author: Joao Coe DO Service: General Surgery Author Type: Resident Type: Progress Notes Filed: 01/08/2023 1:49 PM Note Text: Trauma Surgery Progress Note SERVICE DATE: 01/07/2023 Trauma Service Pager: For questions or concerns Mon-Fri 6a-5p please page [phone]. After 5pm and on Weekends and Holidays, please page [phone] if in ICU or [phone] if on RNF. SUBJECTIVE: Pt VSS. Not in acute distress when seen in the AM. His left leg is still wrapped and has wound vac on. Overall patient feels well and is awaiting discharge from the hospital. OBJECTIVE: Vitals: Temp (24hrs), Av.5 ?C (97.7 ?F), Min:36.3 ?C (97.3 ?F), Max:36.7 ?C (98.1 ?F) BP 133/50 Pulse 63 Temp 36.3 ?C (97.3 ?F) (Oral) Resp 18 Ht 177.8 cm (5' 10) Wt 75.1 kg (165 lb 9.1 oz) SpO2 97% BMI 23.76 kg/m? O2 Therapy: Room Air IANDO: Date 01/07/23699 - 01/08/23 0659 01/08/23699 - 01/09/23 0659 Shift 6675-6721 9130-1394 1465-8072 24 Hour Total 8768-7233 9423-6310 0231-8301 24 Hour Total INTAKE PO 260 260 240 240 PO 260 260 240 240 Shift Total 260 260 240 240 OUTPUT Urine 500 500 450 450 Void (ml) 500 500 450 450 # of BMs Number of BMs 1 x 1 x Shift Total 500 500 450 450 Weight (kg) 75.1 75.1 75.1 75.1 75.1 75.1 75.1 75.1 MEDICATIONS Current Facility-Administered Medications Medication Dose Route Frequency lisinopril 20 mg tab(s) (ZESTRIL) 20 mg ORAL DAILY heparin 5,000 Units injection 5,000 Units SUBCUTANEOUS q 8 H oxyCODONE IR 2.5-5 mg tab(s) (ROXICODONE) 2.5-5 mg ORAL q 6 H PRN lidocaine 4 % 1 Patch (SALONPAS) 1 Patch TRANSDERMAL DAILY AT 9 PM And lidocaine patch - REMOVE OTHER DAILY And lidocaine - VERIFY PATCH OTHER q 8 H ferrous sulfate 325 mg tab(s) 325 mg ORAL DAILY WITH BREAKFAST senna-docusate 8.6-50 mg 1 tablet (SENNA-S) 1 tablet ORAL BID ergocalciferol (vitamin D2) 50,000 Units cap(s) (DRISDOL) 50,000 Units ORAL 1/WK NaCl 0.9% iv flush bag 20 mL INTRAVENOUS PRN ondansetron 4 mg tab(s) (ZOFRAN) 4 mg ORAL q 6 H PRN Or ondansetron (PF) 4 mg injection (ZOFRAN) 4 mg INTRAVENOUS q 6 H PRN acetaminophen 975 mg tab(s) (TYLENOL) 975 mg ORAL q 6 H pantoprazole 40 mg injection (PROTONIX) 40 mg INTRAVENOUS DAILY (6 AM) zinc oxide 20 % TOPICAL BID amiodarone 200 mg tab(s) (PACERONE) 200 mg ORAL DAILY atorvastatin 40 mg tab(s) (LIPITOR) 40 mg ORAL AT BEDTIME carvedilol 3.125 mg tab(s) (COREG) 3.125 mg ORAL BID w MEALS levothyroxine 75 mcg tab(s) (SYNTHROID) 75 mcg ORAL DAILY (6 AM) Labs: Recent Labs 01/08/23 0000 01/07/23 0218 NA 137 137 K 4.3 4.4 CHLOR 106* 105 CO2 20* 22 BUN 43* 42* CREAT 2.21* 2.38* GLUC 128* 103* ANION 11 10 CA 8.4* 8.6 WBC 5.51 5.19 HB 7.9* 8.2* HCT 24.5* 25.5* PLT 160 161 PHYSICAL EXAM: Genl: Appears age appropriate. No acute distress. Resting comfortably. Head/Face: Normocephalic. Atraumatic. Eyes: EOMI. Sclera not icteric, not injected Resp: No audible wheezes. Breathing is non-labored on RA @ 97%. CVS: HR as above; 2+ pulses at RA, DP bilat. Not able to feel left foot because it is wrapped. GI: Abdomen is soft, non-tender, not distended. No peritonitis. MSK: Extremities without clubbing, cyanosis, edema. Normal ROM x 4. Left thigh/hip dressing is C/D/I. Left foot dressing is C/D/I. Skin: Warm and dry. Not jaundiced. Neuro: AANDOx3. Strength and sensation normal in BL LE and UE. GONZÁLES. GCS15. Psych: Normal mood. Normal affect. Appropriate insight into current situation. ASSESSMENT AND PLAN: Active Hospital Problems Diagnosis Date Noted Head injury, acute, without loss of consciousness, sequela 01/03/2023 Open wound of left foot 01/07/2023 Arterial insufficiency with ischemic ulcer (HCC) 01/07/2023 ABLA (acute blood loss anemia) 01/06/2023 Closed displaced comminuted fracture of shaft of left femur ([facility]) 01/06/2023 Malnutrition of moderate degree ([facility]) 01/05/2023 Coronary artery disease involving [place] coronary artery of [place] heart 01/04/2023 S/P CABG (coronary artery bypass graft) 01/04/2023 Atrial fibrillation ([facility]) 01/04/2023 Primary hypertension 01/04/2023 Other hyperlipidemia 01/04/2023 COPD (chronic obstructive pulmonary disease) ([facility]) 01/04/2023 Fall 01/04/2023 Stasis ulcer ([facility]) 01/03/2023 Skin tear of left elbow without complication 01/03/2023 Noninfected skin tear of left leg 01/03/2023 Alteration in skin integrity due to moisture 01/03/2023 82 year old male s/p ground level fall on 01/03/2023 Imaging performed: CT H/N, CXR, AND PXR on 01/03/[address] Brain on 01/03/2023 PXR and left hip XR on 01/04/2023 MRI Brain on 01/05/2023 Traumatic Injuries: Left side frontal subacute intraparenchymal hemorrhage Complex intertrochanteric left femur fx Operations/Procedures: 1. Insertion of left hip intramedullary femoral nail on 01/04/[address] Rod Care Plan: Subacute IPH: Neurosurgery consulted upon admission Repeat CT Brain stab (more content not included)...[facility] 01-08-2023 NoteHNO ID: [id number] Author: Gisell Tirado DO Service: Hospital Medicine Author Type: Physician Type: Progress Notes Filed: 01/08/2023 6:53 AM Note Text: DEPARTMENT OF HOSPITAL MEDICINE PROGRESS NOTE SERVICE DATE: 01/08/2023 SERVICE TIME: 6:47 AM Hospital Medicine/Primary Attending: Gisell Tirado DO NIGHT AND WEEKEND COVERAGE: After 7pm please page [phone] CHIEF COMPLAINT: Follow up on MMP SUBJECTIVE: Pt seen and examined. States that he feels ok. Denies any pain. No chest pain or SOB. No vomiting OBJECTIVE: PHYSICAL EXAM: BP 164/77 Pulse 75 Temp (Src) 98.1 (Oral) Resp 18 Ht 5' 10 (1.78m) Wt 165 lb 9.1 oz (75.1kg) SpO2 95% BMI 23.76 kg/(m2). O2 Therapy: Room Air General - AANDOx3, NAD, Calm CV - RRR S1 S2, No M/R/G RESP - CTA B/L No wheezes, ronchi, rales ABD - soft, NT, ND +BS EXT - no gross joint deformity, no clubbing, cyanosis, edema, +would vac to LLE NEURO - Moves extremities MEDICATIONS: Current Facility-Administered Medications Medication Dose Route Frequency NaCl 0.9% iv flush bag 20 mL INTRAVENOUS PRN ondansetron 4 mg tab(s) (ZOFRAN) 4 mg ORAL q 6 H PRN Or ondansetron (PF) 4 mg injection (ZOFRAN) 4 mg INTRAVENOUS q 6 H PRN acetaminophen 975 mg tab(s) (TYLENOL) 975 mg ORAL q 6 H pantoprazole 40 mg injection (PROTONIX) 40 mg INTRAVENOUS DAILY (6 AM) zinc oxide 20 % TOPICAL BID amiodarone 200 mg tab(s) (PACERONE) 200 mg ORAL DAILY atorvastatin 40 mg tab(s) (LIPITOR) 40 mg ORAL AT BEDTIME carvedilol 3.125 mg tab(s) (COREG) 3.125 mg ORAL BID w MEALS levothyroxine 75 mcg tab(s) (SYNTHROID) 75 mcg ORAL DAILY (6 AM) ergocalciferol (vitamin D2) 50,000 Units cap(s) (DRISDOL) 50,000 Units ORAL 1/WK ferrous sulfate 325 mg tab(s) 325 mg ORAL DAILY WITH BREAKFAST senna-docusate 8.6-50 mg 1 tablet (SENNA-S) 1 tablet ORAL BID heparin 5,000 Units injection 5,000 Units SUBCUTANEOUS q 8 H lisinopril 10 mg tab(s) (ZESTRIL) 10 mg ORAL DAILY oxyCODONE IR 2.5-5 mg tab(s) (ROXICODONE) 2.5-5 mg ORAL q 6 H PRN lidocaine 4 % 1 Patch (SALONPAS) 1 Patch TRANSDERMAL DAILY AT 9 PM And lidocaine patch - REMOVE OTHER DAILY And lidocaine - VERIFY PATCH OTHER q 8 H DATA: Diagnostic tests reviewed for today's visit: CBC: Recent Labs 01/08/23 0000 WBC 5.51 RBC 2.46* HB 7.9* HCT 24.5* PLT 160 MCV 99.6 MCH 32.1 MPV 9.6 Coags: No results for input(s): PT, INR, APTT in the last 24 hours. BMP: Recent Labs 01/08/23 0000 NA 137 K 4.3 CHLOR 106* CO2 20* BUN 43* CREAT 2.21* GLUC 128* CMP: Recent Labs 01/08/23 0000 NA 137 K 4.3 CHLOR 106* CO2 20* BUN 43* CREAT 2.21* GLUC 128* CA 8.4* ANION 11 Cardiac Enzymes: No results for input(s): CK, MB, CKMB, TROPT in the last 24 hours. Liver Function, Amylase, Lipase: No results for input(s): TPROT, ALB, ALT, AST, ALKPHOS, TBILI, AMYLASE, LIPASE, LACTATE in the last 24 hours. MG/PHOS: No results for input(s): MG, P in the last 24 hours. Renal Panel: Recent Labs 01/08/23 0000 CREAT 2.21* BUN 43* GLUC 128* CA 8.4* CHLOR 106* K 4.3 CO2 20* NA 137 Heme: No results for input(s): RETICP, ABSRETIC, LD, SYED, FE, TIBC, TRANSFERSAT in the last 24 hours. No results found for: UALBCR Estimated Creatinine Clearance: 27.1 mL/min (A) (based on SCr of 2.21 mg/dL (H)). Most recent labs and radiology results reviewed. Assessment/Plan POD #4 status-post L hip CMN- management per orthopedics Left frontal subacute intraparenchymal hemorrhage - management per NSGY and trauma. Needs outpatient follow up in 2 weeks CAD without angina - not on any blood thinners due to hx of bleeding. 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 Creat is 2.21 and at baseline Acute on chronic anemia - did get 1 unit of PRBCs while here. Hb is 7.9 today. CBC in Am Hyperkalemia - resolved Left lower extremity foot wound- bedside IANDD by podiatry. WOund vac Falls - PT OT and SNF recommended Atrial fib - unclear type. cont with amio and coreg. No OAC due to bleeding and falls Will cont to follow as marketing consultant. Medication and Non-Pharmacologic VTE Prophylaxis/Anticoagulants Anticoagulant AND Antiplatelet Medications (From admission, onward) Start Dose Route Frequency Last Action Ordered Stop 01/07/23 0700 heparin 5,000 Units injection 5,000 Units SUBCUTANEOUS EVERY 8 HOURS Given, 01/08 0550 01/07/23 0642 -- 01/05/23 0645 activity - mobilize patient (wv,ca) 01/03/23 1400 pneumatic compression stockings ([place]) 01/03/23 1400 graduated compression stockings ([place]) Lines, Drains, and Airways Line Duration Peripheral 01/04/23 1415 Right Antecubital 20 Gauge 3 days VTE Prophylaxis: Heparin 5000 units Sub Q BID Disposition: SNF Functional Status Prior to Admit: Medical Necessity for Continued Hospitalization Per primary team Plan of care discussed with: Patient SIGNAT (more content not included)...[facility]07-11-2023 Note HNO ID: [id number] Author: Nancy Newton RN Service: Care Management Author Type: Registered Nurse Type: Care Mgt Progress Note Filed: 01/07/2023 3:49 PM Note Text: CARE MANAGEMENT PROGRESS NOTE SERVICE DATE: 01/07/2023 SERVICE TIME: 3:46 PM LOS: 4 days [facility] is able to accept back, sent updates as patient now has wound vac. Pt states he thinks he is out of SNF coverage, asked SNF for clarification. Pt will need transport at [facility] to follow clinical progress. SIGNATURE: Nancy Newton RN PATIENT NAME: Amaury Blank DATE: January 07, 2023 TIME: 3:45 PM PAGER/CONTACT #: [phone] [facility] History of Past illness Narrative* Problem Noted Date Diagnosed Date Resolved Date Open wound of left foot 01/07/202312/28 Closed displaced comminuted fracture of shaft of left femur 01/06/2023 01/09/2023 Fall 01/04/2023 01/09/2023 Head injury, acute, without loss of consciousness, sequela 01/03/2023 01/09/2023 Stasis ulcer 01/03/2023 01/09/2023 documented as of this encounter (statuses as of 01/22/2023) [facility]07-11-2023 History of Past illness Narrative* Problem Noted Date Diagnosed Date Resolved Date Open wound of left foot 01/07/202312/28 Closed displaced comminuted fracture of shaft of left femur 01/06/2023 01/09/2023 Fall 01/04/2023 01/09/2023 Head injury, acute, without loss of consciousness, sequela 01/03/2023 01/09/2023 Stasis ulcer 01/03/2023 01/09/2023 documented as of this encounter (statuses as of 01/23/2023) [facility]07-11-2023 History of Past illness Narrative* Problem Noted Date Diagnosed Date Resolved Date Open wound of left foot 01/07/202312/28 Closed displaced comminuted fracture of shaft of left femur 01/06/2023 01/09/2023 Fall 01/04/2023 01/09/2023 Head injury, acute, without loss of consciousness, sequela 01/03/2023 01/09/2023 Stasis ulcer 01/03/2023 01/09/2023 documented as of this encounter (statuses as of 05/04/2023) [facility]07-11-2023 NoteHNO ID: [id number] Author: Sydni Montgomery Service: Pharmacy Author Type: ? Type: Progress Notes Filed: 01/07/2023 10:47 AM Note Text: Attestation signed by Coy Angulo isra at 01/07/2023 3:54 PM I have reviewed the pharmacy picking technician's assessment and agree with the written information. I have reviewed the patient's opioid use IT TRAINING SPECIALIST and during current hospitalization. Coy Angulo PharmD [phone] HPI: MARVIN is a 82 WM presents to [facility] from a ground height fall and hit to his head. Patient denies loss of consciousness. Patient reports left hip pain. Procedure: INSERTION NAIL / JESSY INTERMEDULLARY FEMUR WITH C-ARM (Left: Hip) Beer's Criteria: Opioids (ie oxycodone) emerging data highlights an association between opioid administration and delirium 2. Avoid amiodarone as first-line therapy for atrial fibrillation unless the patient has heart failure or substantial left ventricular hypertrophy 3. Avoid pantoprazole due to risk of C. difficile infection, pneumonia, GI malignancies, bone loss, and fractures. Drug Interactions: Iron preparations (ie ferrous sulfate) may decrease the serum concentration of levothyroxine. Amiodarone may enhance QT prolonging effect of ondansetron Medications for this elderly patient were reviewed according to the revised Beers Criteria.[facility]07-11-2023 NoteHNO ID: [id number] Author: Antwan Andres PA-C Service: General Surgery Author Type: Physician Home Therapy Teacher Type: Progress Notes Filed: 01/07/2023 9:31 AM Note Text: Trauma Surgery Progress Note SERVICE DATE: 01/07/2023 Trauma Service Pager: For questions or concerns Mon-Fri 6a-5p please page [phone]. After 5pm and on Weekends and Holidays, please page [phone] if in ICU or [phone] if on RNF. SUBJECTIVE: Patient was asleep but easily awoken. No new focal concerns. His left leg pain remains well controlled. He again denied any current ELLIS, CP, SOB, N/V, ABD pain, fevers, chills, or cough. Podiatry following for left foot wound. Post procedure day#1 s/p bedside excisional debridement. OBJECTIVE: Vitals: Temp (24hrs), Av.6 ?C (97.9 ?F), Min:36.4 ?C (97.5 ?F), Max:36.8 ?C (98.2 ?F) BP 180/73 Pulse 85 Temp 36.8 ?C (98.2 ?F) (Oral) Resp 18 Ht 177.8 cm (5' 10) Wt 75.1 kg (165 lb 9.1 oz) SpO2 95% BMI 23.76 kg/m? O2 Therapy: Nasal Cannula IANDO: Date 01/06/23699 - 01/07/2365801/07/23699 - 01/08/23 0659 Shift 0657-2430 8213-5548 7698-4650 24 Hour Total 6759-4141 6415-6854 6171-5785 24 Hour Total INTAKE PO 300 240 540 PO 300 240 540 Blood Products 300 300 Infusion Complete Volume (mL) (RBC Transfusion Instruction) 300 300 Shift Total 600 240 840 OUTPUT Urine 425 236 041 7574 Void (ml) 425 582 662 0988 Shift Total 425 488 050 0562 Weight (kg) 75 75.1 75.1 75.1 75.1 75.1 75.1 75.1 MEDICATIONS Current Facility-Administered Medications Medication Dose Route Frequency heparin 5,000 Units injection 5,000 Units SUBCUTANEOUS q 8 H lisinopril 10 mg tab(s) (ZESTRIL) 10 mg ORAL DAILY ferrous sulfate 325 mg tab(s) 325 mg ORAL DAILY WITH BREAKFAST senna-docusate 8.6-50 mg 1 tablet (SENNA-S) 1 tablet ORAL BID ergocalciferol (vitamin D2) 50,000 Units cap(s) (DRISDOL) 50,000 Units ORAL 1/WK NaCl 0.9% iv flush bag 20 mL INTRAVENOUS PRN ondansetron 4 mg tab(s) (ZOFRAN) 4 mg ORAL q 6 H PRN Or ondansetron (PF) 4 mg injection (ZOFRAN) 4 mg INTRAVENOUS q 6 H PRN oxyCODONE IR 5-10 mg tab(s) (ROXICODONE) 5-10 mg ORAL q 6 H PRN acetaminophen 975 mg tab(s) (TYLENOL) 975 mg ORAL q 6 H pantoprazole 40 mg injection (PROTONIX) 40 mg INTRAVENOUS DAILY (6 AM) zinc oxide 20 % TOPICAL BID amiodarone 200 mg tab(s) (PACERONE) 200 mg ORAL DAILY atorvastatin 40 mg tab(s) (LIPITOR) 40 mg ORAL AT BEDTIME carvedilol 3.125 mg tab(s) (COREG) 3.125 mg ORAL BID w MEALS levothyroxine 75 mcg tab(s) (SYNTHROID) 75 mcg ORAL DAILY (6 AM) Labs: Recent Labs 01/07/23 0218 01/06/23 1622 01/06/23 0100 NA 137 -- 134* K 4.4 -- 4.4 CHLOR 105 -- 103 CO2 22 -- 22 BUN 42* -- 40* CREAT 2.38* -- 2.47* GLUC 103* -- 117* ANION 10 -- 9 CA 8.6 -- 8.5 WBC 5.19 5.33 5.70 HB 8.2* 8.0* 6.8* HCT 25.5* 25.5* 22.7* PLT 161 151 141* PHYSICAL EXAM: Genl: Appears age appropriate. No acute distress. Resting comfortably. Head/Face: Normocephalic. Atraumatic. Eyes: EOMI. Sclera not icteric, not injected Resp: No audible wheezes. Breathing is non-labored on 2L NC @95%. CVS: HR as above; 2+ pulses at RA, DP bilat. GI: Abdomen is soft, non-tender, not distended. No peritonitis. MSK: Extremities without clubbing, cyanosis, edema. Normal ROM x 4. Left thigh/hip dressing is C/D/I. Left foot dressing is C/D/I. Skin: Warm and dry. Not jaundiced. Neuro: AANDOx3. Strength and sensation normal. GONZÁLES. GCS15. Psych: Normal mood. Normal affect. Appropriate insight into current situation. ASSESSMENT AND PLAN: Active Hospital Problems Diagnosis Date Noted Head injury, acute, without loss of consciousness, sequela 01/03/2023 ABLA (acute blood loss anemia) 01/06/2023 Closed displaced comminuted fracture of shaft of left femur ([facility]) 01/06/2023 Malnutrition of moderate degree ([facility]) 01/05/2023 Coronary artery disease involving [place] coronary artery of [place] heart 01/04/2023 S/P CABG (coronary artery bypass graft) 01/04/2023 Atrial fibrillation ([facility]) 01/04/2023 Primary hypertension 01/04/2023 Other hyperlipidemia 01/04/2023 COPD (chronic obstructive pulmonary disease) ([facility]) 01/04/2023 Fall 01/04/2023 Stasis ulcer ([facility]) 01/03/2023 Skin tear of left elbow without complication 01/03/2023 Noninfected skin tear of left leg 01/03/2023 Alteration in skin integrity due to moisture 01/03/2023 82 year old male s/p ground level fall on 01/03/2023 Imaging performed: CT H/N, CXR, AND PXR on 01/03/[address] Brain on 01/03/2023 PXR and left hip XR on 01/04/2023 MRI Brain on 01/05/2023 Traumatic Injuries: Left side frontal subacute intraparenchymal hemorrhage Complex intertrochanteric left femur fx Operations/Procedures: 1. Insertion of left hip intramedullary femoral nail on 01/04/[address] Rod Care Plan: Subacute IPH: Neurosurgery consulted upon admission Repeat CT Brain stable on 01/03 Finding is most likely from previous trauma MRI brain completed 01/05 no mas (more content not included)...[facility]07-11-2023 NoteHNO ID: [id number] Author: Marie Smyth MD Service: Orthopaedic Surgery Author Type: Resident Type: Progress Notes Filed: 01/07/2023 6:11 AM Note Text: Orthopaedic Surgery Inpatient Progress Note Assessment Amaury Blank is a 82 year old male who is POD #3 status-post L hip CMN. Plan - Trauma primary - Pain control. - Weight-bearing status: WBAT LLE. - Dressing(s): Mepilex on LLE -Diet: per primary - DVT PPx: SCDs. Chemoprophylaxis per trauma, ok to start from orthopedics standpoint. -ABLA improved with transfusion yesterday, Hgb 8.2 today - PT/OT: Recommend discharge to SNF - Disposition: per trauma. Subjective No acute events overnight. Pain adequately controlled. No fevers, chills, chest pain, or shortness of breath. No new complaints. Physical Examination Vitals BP 165/62 Pulse 63 Temp 36.6 ?C (97.9 ?F) (Oral) Resp 20 Ht 177.8 cm (5' 10) Wt 75.1 kg (165 lb 9.1 oz) SpO2 96% BMI 23.76 kg/m? General Alert and answering questions appropriately. No acute distress. Cooperative with interview. Left Lower Extremity Dressing clean, dry, intact on left hip and soft dressing on left foot per podiatry. Alignment normal. No gross deformities. No swelling, ecchymosis, or erythema. No open wounds or lacerations. SILT Aguilera/Sa/DP/SP/T. Motor intact EHL/DF/PF. PT pulse intact, DP unable to assess due to dressing. BCR all digits. Labs Recent Labs 01/07/23 0218 01/06/23 1622 01/06/23 0100 NA 137 -- 134* K 4.4 -- 4.4 CHLOR 105 -- 103 CO2 22 -- 22 BUN 42* -- 40* CREAT 2.38* -- 2.47* GLUC 103* -- 117* ANION 10 -- 9 CA 8.6 -- 8.5 WBC 5.19 5.33 5.70 HB 8.2* 8.0* 6.8* HCT 25.5* 25.5* 22.7* PLT 161 151 141* Imaging No new imaging obtained Marie Smyth MD Orthopaedic Surgery - PGY 1 5:35 AM 01/07/2023 Pager #[phone] INPATIENT ATTENDING: Dr. Rod, Errol Marley MD, Urgent High-Risk Geriatric Patient Vulnerabilities: Impaired Mobility Diet: DIET RENAL Code Status: DNR-CCA Recommendations: Cognition: No Cognitive Impairment bCAM Score (Calc): Negative Delirium Screen Geriatric Consult (Age over 85 or impaired cognition):Consult not needed Palliative Care/Hospice: Consult not required Rehab/Therapy: PT/OT Recommendations: PT: Recommended Discharge Disposition: Subacute/SNF OT: Recommended Discharge Disposition: Subacute/SNF Swallow: Swallow Screening Result - Step 2: PASSED Swallow Screen - Patient Able To Swallow 3 Ounce Cup of Water Without Exhibiting Signs Of Aspiration Speech Recommendations: Speech: Speech Diet: Nutrition: Consult not required Nutrition Recommendations: MST: Total MST Score (Calculated): 3 Bull Gang Worker: Diet: Continue current diet Supplements: Boost Glucose Control (1x/d) Pharmacy: Consult not needed Social Work: NA Anticipated [facility] NoteHNO ID: [id number] Author: Antwan Andres PA-C Service: General Surgery Author Type: Physician Home Therapy Teacher Type: Progress Notes Filed: 01/06/2023 2:31 PM Note Text: Trauma Surgery Progress Note SERVICE DATE: 01/06/2023 Trauma Service Pager: For questions or concerns Mon-Fri 6a-5p please page [phone]. After 5pm and on Weekends and Holidays, please page [phone] if in ICU or [phone] if on RNF. SUBJECTIVE: NAEON. Patient was awake and alert at the time of my exam this morning. He had no new focal concerns. His left leg pain is well controlled. He denied any current ELLIS, CP, SOB, N/V, ABD pain, fevers, chills, or cough. OBJECTIVE: Vitals: Temp (24hrs), Av.6 ?C (97.8 ?F), Min:36.4 ?C (97.5 ?F), Max:36.7 ?C (98.1 ?F) BP 149/57 Pulse 69 Temp 36.5 ?C (97.7 ?F) (Oral) Resp 16 Ht 177.8 cm (5' 10) Wt 75 kg (165 lb 5.5 oz) SpO2 96% BMI 23.72 kg/m? O2 Therapy: Room Air IANDO: Date 01/05/23699 - 01/06/2365801/06/23699 - 01/07/23 0659 Shift 3980-4917 4294-1506 0303-5272 24 Hour Total 7998-8859 3427-5650 8055-4432 24 Hour Total INTAKE PO 120 120 300 300 PO 120 120 300 300 Shift Total 120 120 300 300 OUTPUT Urine 500 350 850 425 425 Void (ml) 200 350 550 425 425 Urine Incontinence/Not Saved 1 x 1 x Output ([REMOVED] Indwelling Urinary Catheter 18 Fr 01/05/23 1533) 300 300 # of BMs Number of BMs 1 x 1 x Shift Total 500 350 850 425 425 Weight (kg) 75 75 75 75 75 75 75 75 MEDICATIONS Current Facility-Administered Medications Medication Dose Route Frequency ferrous sulfate 325 mg tab(s) 325 mg ORAL DAILY WITH BREAKFAST ergocalciferol (vitamin D2) 50,000 Units cap(s) (DRISDOL) 50,000 Units ORAL 1/WK NaCl 0.9% iv flush bag 20 mL INTRAVENOUS PRN ondansetron 4 mg tab(s) (ZOFRAN) 4 mg ORAL q 6 H PRN Or ondansetron (PF) 4 mg injection (ZOFRAN) 4 mg INTRAVENOUS q 6 H PRN oxyCODONE IR 5-10 mg tab(s) (ROXICODONE) 5-10 mg ORAL q 6 H PRN acetaminophen 975 mg tab(s) (TYLENOL) 975 mg ORAL q 6 H pantoprazole 40 mg injection (PROTONIX) 40 mg INTRAVENOUS DAILY (6 AM) zinc oxide 20 % TOPICAL BID amiodarone 200 mg tab(s) (PACERONE) 200 mg ORAL DAILY atorvastatin 40 mg tab(s) (LIPITOR) 40 mg ORAL AT BEDTIME carvedilol 3.125 mg tab(s) (COREG) 3.125 mg ORAL BID w MEALS levothyroxine 75 mcg tab(s) (SYNTHROID) 75 mcg ORAL DAILY (6 AM) Labs: Recent Labs 01/06/23 0100 01/05/23 0010 NA 134* 132* K 4.4 5.3* CHLOR 103 101 CO2 22 21* BUN 40* 40* CREAT 2.47* 2.27* GLUC 117* 101* ANION 9 10 CA 8.5 8.5 WBC 5.70 8.02 HB 6.8* 7.5* HCT 22.7* 24.0* PLT 141* 181 PHYSICAL EXAM: Genl: Appears age appropriate. No acute distress. Resting comfortably. Head/Face: Normocephalic. Atraumatic. Eyes: EOMI. Sclera not icteric, not injected Resp: No audible wheezes. Breathing is non-labored on RA @96%. CVS: HR as above; 2+ pulses at RA, DP bilat. GI: Abdomen is soft, non-tender, not distended. No peritonitis. MSK: Extremities without clubbing, cyanosis, edema. Normal ROM x 4. Left thigh/hip dressing is C/D/I. Skin: Warm and dry. Not jaundiced. Neuro: AANDOx3. Strength and sensation normal. GONZÁLES. GCS15. Psych: Normal mood. Normal affect. Appropriate insight into current situation. ASSESSMENT AND PLAN: Active Hospital Problems Diagnosis Date Noted Head injury, acute, without loss of consciousness, sequela 01/03/2023 ABLA (acute blood loss anemia) 01/06/2023 Malnutrition of moderate degree (HCC) 01/05/2023 Coronary artery disease involving [place] coronary artery of [place] heart 01/04/2023 S/P CABG (coronary artery bypass graft) 01/04/2023 Atrial fibrillation (HCC) 01/04/2023 Primary hypertension 01/04/2023 Other hyperlipidemia 01/04/2023 COPD (chronic obstructive pulmonary disease) (HCC) 01/04/2023 Fall 01/04/2023 Stasis ulcer (HCC) 01/03/2023 Skin tear of left elbow without complication 01/03/2023 Noninfected skin tear of left leg 01/03/2023 Alteration in skin integrity due to moisture 01/03/2023 82 year old male s/p ground level fall on 01/03/2023 Imaging performed: CT H/N, CXR, AND PXR on 01/03/[address] Brain on 01/03/2023 PXR and left hip XR on 01/04/2023 MRI Brain on 01/05/2023 Traumatic Injuries: Left side frontal subacute intraparenchymal hemorrhage Complex intertrochanteric left femur fx Operations/Procedures: 1. Insertion of left hip intramedullary femoral nail on 01/04/[address] Rod Care Plan: Subacute IPH: Neurosurgery consulted upon admission Repeat CT Brain stable on 01/03 Finding is most likely from previous trauma MRI brain completed yesterday, no mass lesion underlying the blood Okay for DVT chemo ppx from a neurosurgery standpoint Q4 neuro checks Continue PT/OT Follow up with Dr. Westfall in 2-4 weeks with a repeat CT Brain Left femur fracture: Orthopedic surgery consulted and following along POD#2 s/p IMN WBAT LLE Ancef completed Pain control Okay for DVT chemo ppx from an o (more content not included)...[facility]07-10-2023 NoteHNO ID: [id number] Author: Kasey Abernathy APRN.BOAT REPAIRER Service: Neurosurgery Author Type: Nurse Practitioner Type: Plan of Care Filed: 01/06/2023 1:12 PM Note Text: Neurosurgery Plan of Care Note: Follow up appointment requested for 2 weeks in office. Thank you for involving us in the care of your patient. NSGY will sign off at this time. Please page or call if you have any additional neurosurgical concerns. Kasey Abernathy APRN BOAT REPAIRER Neurosurgery Pager: [phone] January 06, 2023 1:11 [facility]07-10-2023 NoteHNO ID: [id number] Author: Nancy Newton RN Service: Care Management Author Type: Registered Nurse Type: Care Mgt Initial Assessment Filed: 01/06/2023 12:51 PM Note Text: CARE MANAGEMENT: ASSESSMENT AND DISCHARGE PLAN SERVICE DATE: January 06, 2023 SERVICE TIME: 12:45 PM PCP: Elida Borges MD Primary Contact: Extended Emergency Contact Information Primary Emergency Contact: Kasi Blank Mobile Relation: Son Secondary Emergency Contact: Jus Blank Mobile Relation: Son Admission Status: Inpatient Insurance Provider: MEDICARE A AND B Discharge Planning requested by: Per Department Practice Potential Transition Plans Residential Facility/Intermediate Care Facility Advance Directives Current Advance Directive: Health Care Power of Saw Filer In Chart: No Current Living Arrangements and Support Lives with: Alone Type of Residence: Residential Facility Does the patient have to climb stairs at home?: Yes (at home pt admitted from snf) Care Facility Name: [facility] Support: Children, Family members, Spouse/significant other How do you manage to accomplish the following: Needs Assistance: Ambulation;Transportation to appointments/community;Bathe/Shower;Dress;Meals/Meal Prep;Going to the bathroom;Medication Management Current Services/Equipment Current Post-Acute Service(s): DME Current DME Type: Walker, Cane, Rolling walker Discharge Planning Patient Goal(s): Better mobility, Increase strength, General wellness, Less pain [place] of Choice Explained: [place] of [place] Given: Yes Level of Care Discussed: Residential Facility Are you interested in bedside delivery of your medications? No Discharge Planning Participant(s): Patient Patient/Family Comments: Caregiver Assessment: Caregiver is ready, willing and able to meet the patient's needs as recommended by the inter-professional team: Yes Name of Caregiver: self Transport at Discharge: Transportation Arrangements: Ambulance Needs Prior to Discharge: Needs Prior to Discharge: To Be Determined;Accepting Facility Post-Acute Discharge Plan: Spoke with patient at bedside. Pt originally from [facility], but states he has been a [facility] SNF since November and that is where he fell. +PCP, +DME, +RX, before SNF admission was driving and taking care of who is now at [place] as well. Therapy recommending SNF, pt agreeable and would like to return to [facility]. Tasked referral to see if they can accept back. Pt will need transport at [facility] to follow clinical progress. SIGNATURE: Nancy Newton RN PATIENT NAME: Amaury Blank DATE: January 06, 2023 TIME: 12:45 PM CONTACT #: [phone]23 NoteHNO ID: [id number] Author: Errol Rod MD Service: Orthopaedic Surgery Author Type: Physician Type: Progress Notes Filed: 01/06/2023 1:51 PM Note Text: I evaluated the patient and personally participated in the hernadez components. I agree with the resident's findings and plan with the following revisions and/or additions: Acute on chronic blood loss anemia. Agree with PRBC. Continue supportive care and SNF planning. Signature: Errol Rod MD Service Date: 01/06/2023 Service Time: 1:51 PM Orthopaedic Surgery Inpatient Progress Note Assessment Amaury Blank is a 82 year old male who is POD #2 status-post L hip CMN. Plan - Trauma primary - Pain control - Abx: Ancef 2g q8hrs x2 doses complete - Weight bearing status: WBAT LLE - Diet: advance as tolerated, per trauma - Dressing: Mepilex to LLE - Rest, ice, elevate left hip - DVT ppx: per trauma, ok to start DVT ppx from ortho standpoint - ABL anemia, Hgb 6.8 this am, transfusions per primary (1 units PRBC ordered this am) - PT/OT - appreciate evaluation and recommendations - Dispo: per trauma Subjective No acute events overnight. Pain controlled. No fevers, chills, chest pain, or shortness of breath. No new complaints. Physical Examination Vitals BP 146/60 Pulse 68 Temp 36.7 ?C (98.1 ?F) (Oral) Resp 18 Ht 177.8 cm (5' 10) Wt 75 kg (165 lb 5.5 oz) SpO2 95% BMI 23.72 kg/m? General Alert. No acute distress. Cooperative with interview. Left Lower Extremity Alignment normal. No gross deformities. Mepilex dressing clean, dry, intact No swelling, ecchymosis, or erythema. Soft dressing to LLE overlying chronic skin wounds to left foot dorsum SILT Aguilera/Sa/DP/SP/T. Motor intact EHL/DF/PF. DP/PT pulses palpable; BCR all digits. Labs Recent Labs 01/06/23 0100 01/05/23 0010 01/03/23 1413 01/03/23 1121 NA 134* 132* < > -- K 4.4 5.3* < > -- CHLOR 103 101 < > -- CO2 22 21* < > -- BUN 40* 40* < > -- CREAT 2.47* 2.27* < > -- GLUC 117* 101* < > -- ANION 9 10 < > -- CA 8.5 8.5 < > -- WBC 5.70 8.02 < > -- HB 6.8* 7.5* < > -- HCT 22.7* 24.0* < > -- PLT 141* 181 < > -- INR -- -- -- 1.0 < > = values in this interval not displayed. Imaging XR pelvis shows stable placement of hardware s/p L CMN Sonny Dorsey MD Orthopaedic Surgery 6:19 AM 01/06/2023 Pager #[phone] INPATIENT ATTENDING: Dr. Errol Rod MD, Urgent High-Risk Geriatric Patient Vulnerabilities: Impaired Mobility Diet: DIET RENAL Code Status: Not on file Recommendations: Cognition: No Cognitive Impairment bCAM Score (Calc): Negative Delirium Screen Geriatric Consult (Age over 85 or impaired cognition):Consult not needed Palliative Care/Hospice: Consult not required Rehab/Therapy: PT/OT Recommendations: PT: Recommended Discharge Disposition: Subacute/SNF OT: Recommended Discharge Disposition: Subacute/SNF Swallow: Swallow Screening Result - Step 2: PASSED Swallow Screen - Patient Able To Swallow 3 Ounce Cup of Water Without Exhibiting Signs Of Aspiration Speech Recommendations: Speech: Speech Diet: Nutrition: Consult not required Nutrition Recommendations: MST: Total MST Score (Calculated): 3 Bull Gang Worker: Diet: Continue current diet Supplements: Boost Glucose Control (1x/d) Pharmacy: Consult not needed Social Work: NA Anticipated Discharge Disposition: [facility]07-10-2023 NoteHNO ID: [id number] Author: Sergio Sofia APRN.BOAT REPAIRER Service: Neurosurgery Author Type: Nurse Practitioner Type: Progress Notes Filed: 01/06/2023 4:08 AM Note Text: Neurosurgery Progress Note SERVICE DATE: 01/06/2023 SUBJECTIVE: NAEON. Resting comfortably, no acute complaints, no leg pain OBJECTIVE: Vitals: Temp (24hrs), Av.5 ?C (97.7 ?F), Min:36.4 ?C (97.5 ?F), Max:36.6 ?C (97.9 ?F) BP 146/56 Pulse 66 Temp 36.4 ?C (97.5 ?F) (Oral) Resp 16 Ht 177.8 cm (5' 10) Wt 75 kg (165 lb 5.5 oz) SpO2 98% BMI 23.72 kg/m? O2 Therapy: Room Air IANDO: Date 01/05/23699 - 01/06/23 0659 01/06/23699 - 01/07/23 0659 Shift 4584-5128 2094-7639 8622-7860 24 Hour Total 0511-0294 4634-7391 5840-4026 24 Hour Total INTAKE PO 120 120 PO 120 120 Shift Total 120 120 OUTPUT Urine 500 200 700 Void (ml) 200 200 400 Urine Incontinence/Not Saved 1 x 1 x Output ([REMOVED] Indwelling Urinary Catheter 18 Fr 01/05/23 1533) 300 300 # of BMs Number of BMs 1 x 1 x Shift Total 500 200 700 Weight (kg) 75 75 75 75 75 75 75 75 Medications: Current Facility-Administered Medications Medication Dose Route Frequency NaCl 0.9% iv infusion 75 mL/hr INTRAVENOUS CONTINUOUS ergocalciferol (vitamin D2) 50,000 Units cap(s) (DRISDOL) 50,000 Units ORAL 1/WK NaCl 0.9% iv flush bag 20 mL INTRAVENOUS PRN ondansetron 4 mg tab(s) (ZOFRAN) 4 mg ORAL q 6 H PRN Or ondansetron (PF) 4 mg injection (ZOFRAN) 4 mg INTRAVENOUS q 6 H PRN morphine 2 mg injection 2 mg INTRAVENOUS q 3 H PRN oxyCODONE IR 5-10 mg tab(s) (ROXICODONE) 5-10 mg ORAL q 6 H PRN acetaminophen 975 mg tab(s) (TYLENOL) 975 mg ORAL q 6 H pantoprazole 40 mg injection (PROTONIX) 40 mg INTRAVENOUS DAILY (6 AM) zinc oxide 20 % TOPICAL BID amiodarone 200 mg tab(s) (PACERONE) 200 mg ORAL DAILY atorvastatin 40 mg tab(s) (LIPITOR) 40 mg ORAL AT BEDTIME carvedilol 3.125 mg tab(s) (COREG) 3.125 mg ORAL BID w MEALS levothyroxine 75 mcg tab(s) (SYNTHROID) 75 mcg ORAL DAILY (6 AM) Labs: Recent Labs 01/06/23 0100 01/05/23 0010 01/03/23 1413 01/03/23 1121 NA 134* 132* < > -- K 4.4 5.3* < > -- CHLOR 103 101 < > -- CO2 22 21* < > -- BUN 40* 40* < > -- CREAT 2.47* 2.27* < > -- GLUC 117* 101* < > -- ANION 9 10 < > -- CA 8.5 8.5 < > -- WBC 5.70 8.02 < > -- HB 6.8* 7.5* < > -- HCT 22.7* 24.0* < > -- PLT 141* 181 < > -- INR -- -- -- 1.0 < > = values in this interval not displayed. Exam: GENERAL: No distress, Alert NEURO: GCS 15 speech clear, fluent strength 5/5 all extremities and SILT. L HF NT d/t injury HEENT: normocephalic, atraumatic LUNGS: Unlabored breathing CARDIAC: Regular rate and rhythm as above ABDOMEN: Soft, non-tender, non-distended EXTREMITIES: GONZÁLES, No deformities, No edema SKIN: Skin color, texture, turgor normal, No rashes or lesions ASSESSMENT AND PLAN: Active Hospital Problems Diagnosis Date Noted Head injury, acute, without loss of consciousness, sequela 01/03/2023 Malnutrition of moderate degree ([facility]) 01/05/2023 Coronary artery disease involving [place] coronary artery of [place] heart 01/04/2023 S/P CABG (coronary artery bypass graft) 01/04/2023 Atrial fibrillation ([facility]) 01/04/2023 Primary hypertension 01/04/2023 Other hyperlipidemia 01/04/2023 COPD (chronic obstructive pulmonary disease) ([facility]) 01/04/2023 Fall 01/04/2023 Stasis ulcer ([facility]) 01/03/2023 Skin tear of left elbow without complication 01/03/2023 Noninfected skin tear of left leg 01/03/2023 Alteration in skin integrity due to moisture 01/03/2023 Amaury Blank is a 82 year old male who presents after fall with left hip fracture and RF IPH - Neuro as above - MRI done, no mass lesion underlying blood - Ok for DVT chemoppx - Will request 2-4wk follow up in office for IPH Portions of text from this note were copied. All relevant information was reviewed and updated accordingly on 01/06/2023 SIGNATURE: Sergio Sofia APRN.CNP PATIENT NAME: Amaury Blank DATE: January 06, 2023 TIME: 4:05 AM Pager: [phone] NoteHNO ID: [id number] Author: Joao Coe DO Service: General Surgery Author Type: Resident Type: Progress Notes Filed: 01/06/2023 5:59 AM Note Text: Attestation signed by Bing Perez MD at 01/28/2023 2:31 PM I personally saw and examined the patient on 01/05/23. I reviewed the resident's note. I agree with the resident's assessment and plan unless otherwise noted. Bing Perez MD Trauma Surgery Progress Note SERVICE DATE: 01/05/2023 Trauma Service Pager: For questions or concerns Fri-Fri 6a-5p please page [phone]. After 5pm and on Weekends and Holidays, please page [phone] if in ICU or [phone] if on RNF. SUBJECTIVE: VSS, NAEO, Pt resting comfortably. Seen in the AM. OBJECTIVE: Vitals: Temp (24hrs), Av.3 ?C (97.3 ?F), Min:36 ?C (96.8 ?F), Max:36.7 ?C (98.1 ?F) BP 146/55 Pulse 66 Temp 36.4 ?C (97.5 ?F) (Oral) Resp 18 Ht 177.8 cm (5' 10) Wt 75 kg (165 lb 5.5 oz) SpO2 95% BMI 23.72 kg/m? O2 Therapy: Room Air IANDO: Date 01/04/23699 - 01/05/2365801/05/23699 - 01/06/23 0659 Shift 3997-8112 6591-6032 2169-7636 24 Hour Total 2234-5609 8371-1860 6043-4594 24 Hour Total INTAKE PO 120 120 PO 120 120 IV 1200 1200 Volume (mL) (ceFAZolin in D5W 100 mL (ANCEF)) 100 100 Volume (mL) (tranexamic acid (CYKLOKAPRON) in NaCl 0.7%) 100 100 Volume (mL) (lactated ringers iv infusion) 500 500 Volume (mL) (lactated ringers iv infusion) 500 500 Shift Total 1320 1320 OUTPUT Urine 300 500 800 Output ( Indwelling Urinary Catheter 18 Fr) 300 500 800 Blood 150 150 Estimated Blood loss 150 150 Shift Total 450 500 950 Weight (kg) 70.3 70.3 75 75 75 75 75 75 MEDICATIONS: Current Facility-Administered Medications Medication Dose Route Frequency NaCl 0.9% iv infusion 75 mL/hr INTRAVENOUS CONTINUOUS ergocalciferol (vitamin D2) 50,000 Units cap(s) (DRISDOL) 50,000 Units ORAL 1/WK NaCl 0.9% iv flush bag 20 mL INTRAVENOUS PRN ondansetron 4 mg tab(s) (ZOFRAN) 4 mg ORAL q 6 H PRN Or ondansetron (PF) 4 mg injection (ZOFRAN) 4 mg INTRAVENOUS q 6 H PRN morphine 2 mg injection 2 mg INTRAVENOUS q 3 H PRN oxyCODONE IR 5-10 mg tab(s) (ROXICODONE) 5-10 mg ORAL q 6 H PRN acetaminophen 975 mg tab(s) (TYLENOL) 975 mg ORAL q 6 H pantoprazole 40 mg injection (PROTONIX) 40 mg INTRAVENOUS DAILY (6 AM) zinc oxide 20 % TOPICAL BID amiodarone 200 mg tab(s) (PACERONE) 200 mg ORAL DAILY atorvastatin 40 mg tab(s) (LIPITOR) 40 mg ORAL AT BEDTIME carvedilol 3.125 mg tab(s) (COREG) 3.125 mg ORAL BID w MEALS levothyroxine 75 mcg tab(s) (SYNTHROID) 75 mcg ORAL DAILY (6 AM) Labs: Recent Labs 01/05/23 0010 01/03/23 1630 01/03/23 1413 01/03/23 1413 01/03/23 1121 NA 132* -- -- 135* -- K 5.3* 5.3* < > 5.3* -- CHLOR 101 -- -- 101 -- CO2 21* -- -- 23 -- BUN 40* -- -- 38* -- CREAT 2.27* -- -- 2.19* -- GLUC 101* -- -- 83 -- ANION 10 -- -- 11 -- CA 8.5 -- -- 9.3 -- WBC 8.02 -- -- 8.44 -- HB 7.5* -- -- 9.9* -- HCT 24.0* -- -- 31.0* -- PLT 181 -- -- 260 -- INR -- -- -- -- 1.0 < > = values in this interval not displayed. PHYSICAL EXAM: Genl: Appears age appropriate. No acute distress. Resting comfortably. Head/Face: Normocephalic. Atraumatic Eyes: EOMI. PERRLA. Sclera not icteric, not injected Neck: No mid-line masses. C-spine non-tender. Back: No midline tenderness, step-offs or deformities. Resp: BL equal chest rise. No wheezes audible on exam. Respiratory status stable on RA. CVS: Regular rate GI: Abdomen is soft, non-tender, non-distended. No guarding or peritoneal signs. MSK: No gross deformities. No clubbing, cyanosis or edema. Normal AROM x 4. Dressing over femur appears well, no drainage appreciated. Skin: Warm and dry. Not jaundiced. Neuro: AANDOx3. Strength and sensation grossly intact in all extremities. GONZÁLES. GCS15. Psych: Normal mood. Normal affect. Appropriate insight into current situation. ASSESSMENT AND PLAN: Assessment Active Hospital Problems Diagnosis Date Noted Head injury, acute, without loss of consciousness, sequela 01/03/2023 Coronary artery disease involving [place] coronary artery of [place] heart 01/04/2023 S/P CABG (coronary artery bypass graft) 01/04/2023 Atrial fibrillation ([facility]) 01/04/2023 Primary hypertension 01/04/2023 Other hyperlipidemia 01/04/2023 COPD (chronic obstructive pulmonary disease) ([facility]) 01/04/2023 Fall 01/04/2023 Stasis ulcer ([facility]) 01/03/2023 Skin tear of left elbow without complication 01/03/2023 Noninfected skin tear of left leg 01/03/2023 Alteration in skin integrity due to moisture 01/03/2023 Assessment: 82 year old male status post fall from ground height. Imaging performed: CT H, Cervical spine, CXR, PXR. Traumatic Injuries: Left side frontal subacute intraparenchymal hemorrhage Complex (more content not included)...[facility]07-09-2023 NoteHNO ID: [id number] Author: Ricky Quintana MD Service: Orthopaedic Surgery Author Type: Resident Type: Progress Notes Filed: 01/05/2023 6:57 AM Note Text: Orthopaedic Surgery Inpatient Progress Note Assessment mAaury Blank is a 82 year old male who is POD #1 status-post L CMN. Plan - Trauma primary - Pain control - Abx: Ancef 2g q8hrs x2 doses - Weight bearing status: WBAT LLE - Diet: advance as tolerated, per trauma - Dressing: Mepilex to LLE - Rest, ice, elevate left hip - DVT ppx: per trauma, ok to start DVT ppx from ortho standpoint on POD 1 - Imaging: post op XR of pelvis in PACU - completed - Labs: daily CBC, BMP - PT/OT - appreciate evaluation and recommendations - Dispo: per trauma Subjective No acute events overnight. Pain controlled. No fevers, chills, chest pain, or shortness of breath. No new complaints. Physical Examination Vitals BP 157/62 Pulse 70 Temp 36.5 ?C (97.7 ?F) (Oral) Resp 18 Ht 177.8 cm (5' 10) Wt 75 kg (165 lb 5.5 oz) SpO2 94% BMI 23.72 kg/m? General Alert. No acute distress. Cooperative with interview. Left Lower Extremity Alignment normal. No gross deformities. Mepilex dressing clean, dry, intact No swelling, ecchymosis, or erythema. Soft dressing to LLE overlying chronic skin wounds to left foot dorsum SILT Aguilera/Sa/DP/SP/T. Motor intact EHL/DF/PF. DP/PT pulses palpable; BCR all digits. Labs Recent Labs 01/05/23 0010 01/03/23 1630 01/03/23 1413 01/03/23 1413 01/03/23 1121 NA 132* -- -- 135* -- K 5.3* 5.3* < > 5.3* -- CHLOR 101 -- -- 101 -- CO2 21* -- -- 23 -- BUN 40* -- -- 38* -- CREAT 2.27* -- -- 2.19* -- GLUC 101* -- -- 83 -- ANION 10 -- -- 11 -- CA 8.5 -- -- 9.3 -- WBC 8.02 -- -- 8.44 -- HB 7.5* -- -- 9.9* -- HCT 24.0* -- -- 31.0* -- PLT 181 -- -- 260 -- INR -- -- -- -- 1.0 < > = values in this interval not displayed. Imaging XR pelvis shows stable placement of hardware s/p L SUZI Quintana MD Orthopaedic Surgery - PGY 3 6:19 AM 01/05/2023 Pager #[phone] INPATIENT ATTENDING: Dr. Errol Rod MD, Urgent High-Risk Geriatric Patient Vulnerabilities: Impaired Mobility Diet: DIET REGULAR Code Status: Not on file Recommendations: Cognition: No Cognitive Impairment bCAM Score (Calc): Negative Delirium Screen Geriatric Consult (Age over 85 or impaired cognition):Consult not needed Palliative Care/Hospice: Consult not required Rehab/Therapy: PT/OT Recommendations: PT: OT: Swallow: Swallow Screening Result - Step 2: PASSED Swallow Screen - Patient Able To Swallow 3 Ounce Cup of Water Without Exhibiting Signs Of Aspiration Speech Recommendations: Speech: Speech Diet: Nutrition: Consult not required Nutrition Recommendations: MST: Total MST Score (Calculated): 3 Bull Gang Worker: Pharmacy: Consult not needed Social Work: NA Anticipated Discharge Disposition: [facility]07-08-2023 NoteHNO ID: [id number] Author: Joao Coe DO Service: Trauma Author Type: Resident Type: Progress Notes Filed: 01/29/2023 8:27 PM Note Text: Trauma Surgery Progress Note SERVICE DATE: 01/04/2023 Trauma Service Pager: For questions or concerns Mon-Fri 6a-5p please page [phone]. After 5pm and on Weekends and Holidays, please page [phone] if in ICU or [phone] if on RNF. SUBJECTIVE: VSS, NAEO, Pt resting comfortably. Seen after he returning from OR. OBJECTIVE: Vitals: Temp (24hrs), Av.3 ?C (97.4 ?F), Min:36 ?C (96.8 ?F), Max:36.7 ?C (98.1 ?F) BP 135/58 Pulse 68 Temp 36.2 ?C (97.2 ?F) (Axillary) Resp 18 Ht 177.8 cm (5' 10) Wt 70.3 kg (154 lb 15.7 oz) SpO2 95% BMI 22.24 kg/m? O2 Therapy: Nasal Cannula IANDO: Date 01/03/231499 - 01/04/2365801/04/23 07 - 01/05/23 0659 Shift 8453-7966 2141-3613 24 Hour Total 2119-4951 5186-8674 4106-9690 24 Hour Total INTAKE IV 954 738 5148 1200 Volume (mL) (ceFAZolin in D5W 100 mL (ANCEF)) 100 100 Volume (mL) (tranexamic acid (CYKLOKAPRON) in NaCl 0.7%) 100 100 Volume (mL) (NaCl 0.9% iv infusion) 400 400 Volume (mL) (lactated ringers iv infusion) 500 500 Volume (mL) (lactated ringers iv infusion) 500 500 Shift Total 689 012 6216 1200 OUTPUT Urine 50 50 300 300 Void (ml) 50 50 Urine Incontinence/Not Saved 1 x 1 x Output ( Indwelling Urinary Catheter 18 Fr) 300 300 Blood 150 150 Estimated Blood loss 150 150 Shift Total 50 50 450 450 Weight (kg) 79.4 70.3 70.3 70.3 70.3 70.3 70.3 MEDICATIONS: Current Facility-Administered Medications Medication Dose Route Frequency ergocalciferol (vitamin D2) 50,000 Units cap(s) (DRISDOL) 50,000 Units ORAL 1/WK ceFAZolin iv piggyback 2 g in D5W (iso-osmotic) 100 mL (ANCEF) 2 g INTRAVENOUS ONCE tranexamic acid (CYKLOKAPRON) in NaCl 0.7% 1,000 mg 100 mL 1,000 mg INTRAVENOUS ONCE NaCl 0.9% iv flush bag 20 mL INTRAVENOUS PRN ondansetron 4 mg tab(s) (ZOFRAN) 4 mg ORAL q 6 H PRN Or ondansetron (PF) 4 mg injection (ZOFRAN) 4 mg INTRAVENOUS q 6 H PRN morphine 2 mg injection 2 mg INTRAVENOUS q 3 H PRN oxyCODONE IR 5-10 mg tab(s) (ROXICODONE) 5-10 mg ORAL q 6 H PRN acetaminophen 975 mg tab(s) (TYLENOL) 975 mg ORAL q 6 H pantoprazole 40 mg injection (PROTONIX) 40 mg INTRAVENOUS DAILY (6 AM) zinc oxide 20 % TOPICAL BID amiodarone 200 mg tab(s) (PACERONE) 200 mg ORAL DAILY atorvastatin 40 mg tab(s) (LIPITOR) 40 mg ORAL AT BEDTIME carvedilol 3.125 mg tab(s) (COREG) 3.125 mg ORAL BID w MEALS levothyroxine 75 mcg tab(s) (SYNTHROID) 75 mcg ORAL DAILY (6 AM) Labs: Recent Labs 01/03/23 1630 01/03/23 1413 01/03/23 1121 NA -- 135* -- K 5.3* 5.3* -- CHLOR -- 101 -- CO2 -- 23 -- BUN -- 38* -- CREAT -- 2.19* -- GLUC -- 83 -- ANION -- 11 -- CA -- 9.3 -- WBC -- 8.44 -- HB -- 9.9* -- HCT -- 31.0* -- PLT -- 260 -- INR -- -- 1.0 PHYSICAL EXAM: Genl: Appears age appropriate. No acute distress. Resting comfortably. Head/Face: Normocephalic. Atraumatic Eyes: EOMI. PERRLA. Sclera not icteric, not injected Neck: No mid-line masses. C-spine non-tender. Back: No midline tenderness, step-offs or deformities. Resp: Lungs CTAB. No wheezes, rales or rhonchi. Respiratory status stable on RA. CVS: RRR as above. 2+ RA, DP, PT pulses bilaterally. GI: Abdomen is soft, non-tender, non-distended. No guarding or peritoneal signs. MSK: No gross deformities. No clubbing, cyanosis or edema. Normal AROM x 4. Skin: Warm and dry. Not jaundiced. Neuro: AANDOx3. Strength and sensation grossly intact in all extremities. GONZÁLES. GCS15. Psych: Normal mood. Normal affect. Appropriate insight into current situation. ASSESSMENT AND PLAN: Assessment Active Hospital Problems Diagnosis Date Noted Head injury, acute, without loss of consciousness, sequela 01/03/2023 Coronary artery disease involving [place] coronary artery of [place] heart 01/04/2023 S/P CABG (coronary artery bypass graft) 01/04/2023 Atrial fibrillation ([facility]) 01/04/2023 Primary hypertension 01/04/2023 Other hyperlipidemia 01/04/2023 COPD (chronic obstructive pulmonary disease) ([facility]) 01/04/2023 Fall 01/04/2023 Stasis ulcer ([facility]) 01/03/2023 Skin tear of left elbow without complication 01/03/2023 Noninfected skin tear of left leg 01/03/2023 Alteration in skin integrity due to moisture 01/03/2023 Assessment: 82 year old male status post fall from ground height. Imaging performed: CT H, Cervical spine, CXR, PXR. Traumatic Injuries: Left side frontal subacute intraparenchymal hemorrhage Complex intertrochanteric left femur fx Operations/Procedures: 1. Ortho 01/04 - Care Plan: Left side frontal subacute intraparenchymal hemorrhage - NPO, mIVF - Neuro Sx consult - Hold anticoagulation Complex intertrochanteric left femur fx - Ortho consult - OR dexter(01/04) for Left femur repair Cardiac History - Pre-op evaluation with cards consult - continue home meds Current diet ord (more content not included)...[facility] 01-04-2023 NoteHNO ID: [id number] Author: Moni Childers RN Service: Nursing Author Type: Registered Nurse Type: Nursing Progress Note Filed: 01/04/2023 6:18 PM Note Text: [facility]-2023 NoteHNO ID: [id number] Author: Bert Bellamy MD Service: Anesthesiology Author Type: Physician Type: Anesthesia Procedure Notes Filed: 01/04/2023 4:52 PM Note Text: ANESTHESIOLOGY PROCEDURE NOTE Peripheral Nerve Block General Information Procedure Start Time/Medication Administration: 01/04/2023 4:23 PM Procedure End time: 01/04/2023 4:30 PM Patient location during procedure: PACU Timeout Performed Pre-procedure: timeout performed Consent Obtained: Yes Patient identity confirmed: arm band and patient Reason for block: post-op pain management/at surgeon's request Staffing Anesthesiologist: Bert Bellamy MD Performed by: anesthesiologist Preparation Sterility Preparation: hand hygiene performed prior to procedure, sterile gloves, drapes, and procedure tray, surgical cap used, mask used, skin prep agent completely dried prior to procedure Site Prep: Chloraprep Pre-Procedure Neuro Exam Location: LLE Procedure Details Patient Position: supine Monitoring: Pulse OX, NIBP and EKG Block Type Lower Extremity: fascia iliaca Approach: anterior Laterality: left Injection Technique: single-shot Ultrasound Guided: Yes Image in Chart: no Needle Needle Type: echogenic and blunt Needle Gauge: 21 G Needle Length: 100 mm Needle Localization: anatomical landmarks and ultrasound Assessment Injection assessment: negative aspiration, no paresthesia on injection, local visualized surrounding nerve on ultrasound and incremental injection Post-Procedure Neuro Exam Expected Regional Anesthesia: Yes Medications Administered ropivacaine (PF) 2 mg/mL (0.2 %) injection (NAROPIN) - peripheral nerve block 30 mL - 01/04/2023 4:23:00 PM SIGNATURE: Bert Bellamy MD PATIENT NAME: Amaury Blank DATE: January 04, 2023 TIME: 4:49 PM CSN: [id number] [facility]07-08-2023 NoteHNO ID: [id number] Author: Moni Childers RN Service: Nursing Author Type: Registered Nurse Type: Nursing Progress Note Filed: 01/04/2023 6:19 PM Note Text: Fascia iliaca block given per Dr. Bellamy at [facility]07-08-2023 NoteHNO ID: [id number] Author: Ricky Quintana MD Service: Orthopaedic Surgery Author Type: Resident Type: Plan of Care Filed: 01/04/2023 4:08 PM Note Text: Orthopedic Surgery Plan of Care Post-Operative Plan: - Trauma primary - Pain control - Abx: Ancef 2g q8hrs x2 doses - Weight bearing status: WBAT LLE - Diet: advance as tolerated, per trauma - Dressing: Mepilex to LLE - Rest, ice, elevate left hip - DVT ppx: per trauma, ok to start DVT ppx from ortho standpoint on POD 1 - Imaging: post op XR of pelvis in PACU - Labs: daily CBC, BMP - PT/OT - appreciate evaluation and recommendations - Dispo: per trauma Ricky Quintana MD Orthopaedic Surgery - PGY 3 4:07 PM 01/04/2023 Pager #[phone]07-08-2023 NoteHNO ID: [id number] Author: Nathaniel Genao APRN.CELL POURER Service: Anesthesiology Author Type: Nurse Sand Miller Type: Anesthesia Procedure Notes Filed: 01/04/2023 3:13 PM Note Text: ANESTHESIOLOGY PROCEDURE NOTE Airway General Information Procedure Start Time/Medication Administration: 01/04/2023 2:55 PM Procedure End Time: 01/04/2023 2:56 PM Patient location during procedure: OR Timeout Performed Pre-procedure: timeout performed Consent Obtained: Yes Patient identity confirmed: arm band Staffing CELL POURER: Nathaniel Genao APRN.CELL POURER Performed by: CELL POURER Indications and Patient Condition Indications for airway management: anesthesia Preoxygenated: yes anesthesia circuit Method: asleep Difficult Mask: No Final Airway Details Final airway type: supraglottic airway Number of attempts at approach: 1 Final Supraglottic Airway: i-gel Size 4 Seal Adequate: yes Airway not difficult SIGNATURE: Nathaniel Genao APRN.CELL POURER PATIENT NAME: Amaury Blank DATE: January 04, 2023 TIME: 3:13 PM CSN: [id number] Light [facility]07-08-2023 NoteHNO ID: [id number] Author: Esha Engel, PROMISE Service: Nursing Author Type: Registered Nurse Type: Nursing Progress Note Filed: 01/04/2023 2:36 PM Note Text: Mopved pt to PACU spot 3 waiting [facility]Northern [facility] 01-04-2023 NoteHNO ID: [id number] Author: Ricky Quintana MD Service: Orthopaedic Surgery Author Type: Resident Type: Progress Notes Filed: 01/04/2023 7:00 AM Note Text: Orthopaedic Surgery Inpatient Progress Note Assessment Amaury Blank is a 82 year old male with a left intertrochanteric fracture Plan - Pain control. - Weight-bearing status: NWB LLE. - Diet: NPO for OR on 01/04 - DVT PPx: SCDs. Hold chemoppx for OR. - Medicine consulted - Wound care consulted for leg wounds - PT/OT: Evaluation AND recommendations - Preop labs obtained - Plan for OR 01/04 for insertion of CMN - Consent obtained electronically and placed in chart - Disposition: per primary. Subjective No acute events overnight. Pain controlled. No fevers, chills, chest pain, or shortness of breath. No new complaints. OR today Physical Examination Vitals BP 148/59 Pulse 63 Temp 36.2 ?C (97.2 ?F) (Oral) Resp 16 Ht 177.8 cm (5' 10) Wt 70.3 kg (154 lb 15.7 oz) SpO2 97% BMI 22.24 kg/m? General Alert. No acute distress. Cooperative with interview. Left Lower Extremity Slightly shortened and externally rotated No swelling, ecchymosis, or erythema. TTP about the left hip Soft dressing to LLE overlying chronic skin wounds to left foot dorsum SILT Aguilera/Sa/DP/SP/T. Motor intact EHL/DF/PF. DP/PT pulses palpable; BCR all digits. Compartment soft and compressible Labs Recent Labs 01/03/23 1630 01/03/23 1413 01/03/23 1121 NA -- 135* -- K 5.3* 5.3* -- CHLOR -- 101 -- CO2 -- 23 -- BUN -- 38* -- CREAT -- 2.19* -- GLUC -- 83 -- ANION -- 11 -- CA -- 9.3 -- WBC -- 8.44 -- HB -- 9.9* -- HCT -- 31.0* -- PLT -- 260 -- INR -- -- 1.0 Imaging No new imaging Ricky Quintana MD Orthopaedic Surgery - PGY 3 6:19 AM 01/04/2023 Pager #[phone] INPATIENT ATTENDING: Dr. Errol Rod MD, Urgent High-Risk Geriatric Patient Vulnerabilities: Impaired Mobility Diet: DIET NPO Code Status: Not on file Recommendations: Cognition: No Cognitive Impairment bCAM Score (Calc): Negative Delirium Screen Geriatric Consult (Age over 85 or impaired cognition):Consult not needed Palliative Care/Hospice: Consult not required Rehab/Therapy: PT/OT Recommendations: PT: OT: Swallow: Swallow Screening Result - Step 2: PASSED Swallow Screen - Patient Able To Swallow 3 Ounce Cup of Water Without Exhibiting Signs Of Aspiration Speech Recommendations: Speech: Speech Diet: Nutrition: Consult not required Nutrition Recommendations: MST: Total MST Score (Calculated): 3 Bull Gang Worker: Pharmacy: Consult not needed Social Work: NA Anticipated Discharge Disposition: [facility]07-08-2023 NoteHNO ID: [id number] Author: Sergio Sofia APRN.CNP Service: Neurosurgery Author Type: Nurse Practitioner Type: Progress Notes Filed: 01/04/2023 8:02 PM Note Text: Neurosurgery Progress Note SERVICE DATE: 01/04/2023 SUBJECTIVE: Sleeping well. Denies ELLIS n/v. Hip pain tolerable OBJECTIVE: Vitals: Temp (24hrs), Av.4 ?C (97.5 ?F), Min:36.2 ?C (97.2 ?F), Max:36.5 ?C (97.7 ?F) BP 148/59 Pulse 63 Temp 36.2 ?C (97.2 ?F) (Oral) Resp 16 Ht 177.8 cm (5' 10) Wt 70.3 kg (154 lb 15.7 oz) SpO2 97% BMI 22.24 kg/m? O2 Therapy: Room Air IANDO: Date 01/03/23699 - 01/04/23 0601/04/23699 - 01/05/23 0659 Shift 7370-7296 7382-0652 8182-4989 24 Hour Total 3392-8618 9348-0776 0375-4329 24 Hour Total INTAKE IV 400 400 Volume (mL) (NaCl 0.9% iv infusion) 400 400 Shift Total 400 400 OUTPUT Urine 50 50 Void (ml) 50 50 Urine Incontinence/Not Saved 1 x 1 x Shift Total 50 50 Weight (kg) 79.4 79.4 70.3 70.3 70.3 70.3 70.3 70.3 Medications: Current Facility-Administered Medications Medication Dose Route Frequency NaCl 0.9% iv flush bag 20 mL INTRAVENOUS PRN ondansetron 4 mg tab(s) (ZOFRAN) 4 mg ORAL q 6 H PRN Or ondansetron (PF) 4 mg injection (ZOFRAN) 4 mg INTRAVENOUS q 6 H PRN morphine 2 mg injection 2 mg INTRAVENOUS q 3 H PRN oxyCODONE IR 5-10 mg tab(s) (ROXICODONE) 5-10 mg ORAL q 6 H PRN acetaminophen 975 mg tab(s) (TYLENOL) 975 mg ORAL q 6 H pantoprazole 40 mg injection (PROTONIX) 40 mg INTRAVENOUS DAILY (6 AM) zinc oxide 20 % TOPICAL BID iv contrast (radiology procedure) INTRAVENOUS DIRECTED PRN amiodarone 200 mg tab(s) (PACERONE) 200 mg ORAL DAILY atorvastatin 40 mg tab(s) (LIPITOR) 40 mg ORAL AT BEDTIME carvedilol 3.125 mg tab(s) (COREG) 3.125 mg ORAL BID w MEALS levothyroxine 75 mcg tab(s) (SYNTHROID) 75 mcg ORAL DAILY (6 AM) Labs: Recent Labs 01/03/23 1630 01/03/23 1413 01/03/23 1121 NA -- 135* -- K 5.3* 5.3* -- CHLOR -- 101 -- CO2 -- 23 -- BUN -- 38* -- CREAT -- 2.19* -- GLUC -- 83 -- ANION -- 11 -- CA -- 9.3 -- WBC -- 8.44 -- HB -- 9.9* -- HCT -- 31.0* -- PLT -- 260 -- INR -- -- 1.0 Exam: GENERAL: No distress, Alert NEURO: AAOx3 speech clear, fluent. No UE drift. Strength 5/5 BUE and RLE. Wiggles LLE toes, rest of strength exam of LLE deferred. HEENT: normocephalic, atraumatic LUNGS: Unlabored breathing CARDIAC: Regular rate and rhythm as above ABDOMEN: Soft, non-tender, non-distended EXTREMITIES: Left foot wrapped in gauze SKIN: Skin color, texture, turgor normal, No rashes or lesions ASSESSMENT AND PLAN: Active Hospital Problems Diagnosis Date Noted Head injury, acute, without loss of consciousness, sequela 01/03/2023 Stasis ulcer (HCC) 01/03/2023 Skin tear of left elbow without complication 01/03/2023 Noninfected skin tear of left leg 01/03/2023 Alteration in skin integrity due to moisture 01/03/2023 Amaury Blank is a 82 year old male who presents after fall with left hip fracture and RF IPH - Neuro as above - IPH stable. MRI to better characterize when able - Ok for OR with ortho - Hold off on DVT chemoppx until MRI completed. If stable then ok to start Portions of text from this note were copied. All relevant information was reviewed and updated accordingly on 01/04/2023 SIGNATURE: Sergio Sofia APRN.CNP PATIENT NAME: Amaury Blank DATE: January 04, 2023 TIME: 5:21 AM Pager: [phone] [facility]-08-[facility]23 NoteHNO ID: [id number] Author: Interface Note Service: ? Author Type: ? Type: Progress Notes Filed: 01/04/2023 4:02 AM Note Text: Epic Scheduled Downtime: 01/04/2023 1:02:30 AM to 01/04/2023 3:40:00 AMNorthern [facility]06[facility]06-06-[address] [facility] December 03, 2022 3:07pm Note Date/Time December 03, 2022 3:07p nahomi [facility] Medical Records Department [address] [place] [address] Discharge Summary 12/03/22 1506 MR#: [id number] Acct: [id number] Name: AMAURY BLANK Rep #:[id number] : 1940 82 From: Sammie Castaneda MD PCP: Dr. Rosa Maria Santacruz MD Status:ADM IN Location: [place] [address] Providers Date of Admission: 11/29/22 Date of Discharge: 12/03/22 Primary Care Physician: Dr. Rosa Maria Santacruz MD Consultations 11/29/22 05:22 Consult: Onc/Wound/industrial machine operator Routine Comment: 11/30/22 15:31 Consult: Nephrology Routine Consulting Provider: Kvng James Reason for Consult: Worsening renal function EMERGENT Consult: No MD Notified: Yes Date Notified: 11/30/22 Time Notified: 15:38 Method of Notification: Answering Service Reason For Visit: FALL, ELEVATED TROPONIONS, PANCYTOPENIA Diagnosis Discharge Diagnosis (1) Acute renal insufficiency: Status: Acute Code(s): N28.9 - Disorder of kidney and ureter, unspecified Plan #MYRON on CKD stage IIIb #Klebsiella pneumonia bacteremia likely secondary to Klebsiella pneumonia pneumonia #Elevated troponin, no ACS #Severe pulmonary hypertension/severe mitral annular calcification #Pancytopenia #Hypothyroidism #History of ulcerative colitis #hx CAD status post CABG and stenting #A-fib #Alcohol use history -EtOH negative #Falls #Hx empyema with VATS Medications at Discharge Home Medications ferrous sulfate 325 mg (65 mg iron) tablet 325 mg PO DAILY vitamin 05/28/15 zinc gluconate 50 mg tablet 50 mg PO DAILY supplement 05/28/15 vitamin B complex 1 each PO DAILY vitamin 02/07/16 aspirin 81 mg tablet,delayed release 81 mg PO DAILY@0800 heart [facility] 08/29/16 levothyroxine 50 mcg tablet 75 mcg PO DAILY thyroid 06/13/20 balsalazide 750 mg capsule (Colazal) 2,250 mg PO BID Check with primary doctor 05/16/21 atorvastatin 40 mg tablet (Lipitor) 40 mg PO DAILY #90 tabs 03/13/22 amiodarone 200 mg tablet 100 mg PO DAILY 30 days #15 tabs 12/03/22 carvedilol 3.125 mg tablet 3.125 mg PO BID 30 days #60 tabs 12/03/22 ceftriaxone 2 gram intravenous solution 2 g IV Q24H 4 days #10 ea 12/03/22 ipratropium 0.5 mg-albuterol 3 mg (2.5 mg base)/3 mL nebulization soln 3 ml inhalation TID PRN wheezing or sob 30 days #90 mL 12/03/22 Hospital Course Procedures Transthoracic echo Summary of Care Provided Minutes Spent on Discharge: 40 Hospital Course: 82-year-old male with history of CKD stage IIIb, coronary artery disease, PVD, ulcerative colitis, hypothyroidism presented to [facility] 11/29/2022 due to falls and weakness. He was noted to have a right patchy lobe infiltrate and it was suspected he had pneumonia and he was started on antibiotics. He had 2 out of 2 blood cultures for gram-negative rods, speciatedto Klebsiella pneumonia, suspect that lung pneumonia was due to Klebsiella pneumonia as no other source found. Overall he improved significantly and on day of discharge had no complaints and reported his pain in his left leg was better, no breathing complaints. Plan was to send to TCU with oral antibiotics however given interaction with Levaquin and amiodarone decision was made to discharge with 4 more days of IV Rocephin through peripheral IV given short-term. Additionally during this hospitalization: Echocardiogram showed EF of 60% with moderate concentric left ventricular hypertrophy, indeterminate diastolic function as well as severe pulmonary hypertension and severe mitral annular calcification with moderate tricuspid valve insufficiency. Did have elevated BNP of 1355 and he did have a slight right-sided effusion and an O2 sat of 92% on room air and responded well to Bumex, given Bumex due to Lasix intolerance. Did well with Bumex however creatinine worsened and ultimately nephrology was consulted. Was noted a protein in his urine, renal ultrasound with cysts, negative postvoid. Lisinopril and hydrochlorothiazide were held. Ultimately hedid begin to improve with Bumex held and creatinine improving. On day of discharge did have slight bump in AST and ALT but has no complaints at all including no abdominal pain, no diarrhea, no nausea. Can consider repeating liver function in several days and if remains elevated could always consider further GI eval with liver ultrasound and referral outpatient. Discharge instructions as follows: DISCHARGE INSTRUCTIONS PLEASE READ *Please take this with you to your next doctors appointment* -You grew Klebsiella pneumonia and your blood cultures will be transitioned to Rocephin 2 g every 24 hours for 4 days starting 12/04 through 12/07. Given the short duration this can be run through peripheral IV agreeable with a transitional care unit -Would recommend lab work (CMP) to check your kidney function, potassium, and liver function in 2 to 3 days and a CBC in 2 to 3 days to check your platelet function to assess safety of resuming your aspirin. -Your lisinopril and chlorthalidone have been held due to your kidney function, and your amlodipine and hydralazine were held due to your low blood pressure. Carvedilol was also decreased. 1 or multiple of these medications will likely need to be added back over time, continue to routinely check her blood pressure -You had required bumetanide due to initially having some extra fluid on you that you are retaining. -Weigh yourself every day. A sudden weight gain can mean you are retaining fluid. Weigh yourself at the same time of day and in the same kind of clothes. Ideally, weigh yourself first thing in the morning after you empty your bladder,but before you eat breakfast. If you begin to gain weight we may need to restart Bumex as needed or scheduled -Please call your physician if your weight goes up by more than 2 pounds in 1 day or 5 pounds in 1 week. This can be a sign that you are retaining more fluid than you should be. -Please follow-up with nephrology upon discharge. Please call their office to schedule hospital follow-up appointment upon discharge. -Would benefit from following with cardiology upon discharge due to calcifications on your mitral valve and elevated blood pressure in your lungs -Please call your primary care provider's office upon discharge to schedule a hospital follow up within 1 week. -For any concerning signs or symptoms please call 911 or proceed to the nearest emergency department Physical Exam Narrative General: Alert, no apparent distress HEENT: Atraumatic, normocephalic Eyes: Anicteric, normal conjunctiva, extraocular movements grossly intact Neck: Supple Respiratory: Normal respiratory effort when sitting still, no wheezes, airflow improved Cardiovascular: Regular rate GI: Soft, nontender, nondistended Extremities: Trace edema in lower extremities Musculoskeletal: Moving all extremities Neuro: No overt focal neurological deficits Skin: Left leg wrapped Psych: Cooperative Weight / BMI Weight Weight: 80.4 kg Body Mass Index (BMI) 25.4 ABG / Lab / Microbiology Data Result Diagrams: 12/03/22 05:57 12/03/22 05:57 Laboratory: Laboratory Results - last 24 hr 12/02/22 06:25: Haptoglobin 307 12/03/22 05:57: WBC 5.4, RBC 2.50 L, Hgb 8.7 L, Hct 26.2 L, MCV 104.8 H, MCH 34.8 H, MCHC 33.2, RDW Std Deviation 60.0 H, RDW Coeff of Chanel 15.5 H, Plt Count 63 L, MPV 11.9, Immature Gran % (Auto) 1.300 H, Neut % (Auto) 78.1 H, Lymph % (Auto) 7.7 L, Kendall % (Auto) 12.0 H, Eos % (Auto) 0.7, Baso % (Auto) 0.2, Absolute Neuts (auto) 4.2, Absolute Lymphs (auto) 0.42 L, Nucleated RBC % 0, Differential Comment SCANNED, Platelet Estimate MKD 12/03/22 05:57: Sodium 138, Potassium 3.4 L, Chloride 112 H, Carbon Dioxide 21.0, Anion Gap 5, BUN 68 H, Creatinine 2.74 H, Estim Creat Clear Calc 21.83, Est GFR (MDRD) Af Amer 29 L, Est GFR (MDRD) Non-Af 24 L, BUN/Creatinine Ratio 24.8 H, Glucose 121 H, Calcium 8.2 L, Total Bilirubin 0.50, AST 161 H, ALT 94 H,Alkaline Phosphatase 163 H, Total Protein 4.9 L, Albumin 2.0 L, Globulin 2.9, Albumin/Globulin Ratio 0.7 L Microbiology: Microbiology 11/29/22 02:30 Blood Culture (Wb) - Anticubital Right Blood Culture - Final Klebsiella pneumoniae sp pneum 11/30/22 16:31 Urine, Random Legionella Antigen - Final 11/30/22 16:31 Urine, Random Streptococcus pneumoniae Antigen (M - Final 11/29/22 02:03 Blood Culture (Wb) - Anticubital Left Blood Culture - Preliminary GNR lactose assistant hall director 11/29/22 02:06 Nasal Secretion SARS-CoV-2 & FLU Antigen (Rapid) - Final Meaningful Use Info Meaningful Use Diagnoses (Choose all that apply): None applicable Discharge Plan Admission Admit Date/Time: 11/29/22 04:29 Primary Reason for Your Visit: Weakness Attending Provider: Sammie Castaneda Primary Care Provider: Rosa Maria Santacruz Consulting Providers: Jakob Alexander ; Kvng James Instructions Patient Instructions: Pulmonary Hypertension Additional Instructions / Restrictions: DISCHARGE INSTRUCTIONS PLEASE READ *Please take this with you to your next doctors appointment* -You grew Klebsiella pneumonia and your blood cultures will be transitioned to Rocephin 2 g every 24 hours for 4 days starting 12/04 through 12/07. Given the short duration this can be run through peripheral IV agreeable with a transitional care unit -Would recommend lab work (CMP) to check your kidney function, potassium, and liver function in 2 to 3 days and a CBC in 2 to 3 days to check your platelet function to assess safety of resuming your aspirin. -Your lisinopril and chlorthalidone have been held due to your kidney function, and your amlodipine and hydralazine were held due to your low blood pressure. Carvedilol was also decreased. 1 or multiple of these medications will likely need to be added back over time, continue to routinely check her blood pressure -You had required bumetanide due to initially having some extra fluid on you that you are retaining. -Weigh yourself every day. A sudden weight gain can mean you are retaining fluid. Weigh yourself at the same time of day and in the same kind of clothes. Ideally, weigh yourself first thing in the morning after you empty your bladder,but before you eat breakfast. If you begin to gain weight we may need to restart Bumex as needed or scheduled -Please call your physician if your weight goes up by more than 2 pounds in 1 day or 5 pounds in 1 week. This can be a sign that you are retaining more fluid than you should be. -Please follow-up with nephrology upon discharge. Please call their office to schedule hospital follow-up appointment upon discharge. -Would benefit from following with cardiology upon discharge due to calcifications on your mitral valve and elevated blood pressure in your lungs -Please call your primary care provider's office upon discharge to schedule a hospital follow up within 1 week. -For any concerning signs or symptoms please call 911 or proceed to the nearest emergency department Discharge Orders/Prescriptions Prescriptions: New ipratropium-albuterol 0.5 mg-3 mg(2.5 mg base)/3 mL Solution For Nebulization 3 ml inhalation TID PRN (Reason: wheezing or sob) 30 Days Qty: 90 0RF amiodarone 200 mg Tablet 100 mg PO DAILY 30 Days Qty: 15 0RF carvedilol 3.125 mg Tablet 3.125 mg PO BID 30 Days Qty: 60 0RF ceftriaxone 2 gram recon soln 2 g IV Q24H 4 Days Qty: 10 0RF Rx Instructions: Starting 12/04-12/07 Continued balsalazide [Colazal] 750 mg capsule 2,250 mg PO BID ferrous sulfate 325 MG tablet 325 mg PO DAILY Label Comments: Iron supplement zinc gluconate 50 MG tablet 50 mg PO DAILY Label Comments: supplement vitamin B complex 1 EACH capsule 1 each PO DAILY Label Comments: Vitamin supplement levothyroxine 50 mcg tablet 75 mcg PO DAILY atorvastatin [Lipitor] 40 mg tablet 40 mg PO DAILY Qty: 90 3RF Held aspirin 81 MG tablet 81 mg PO DAILY@0800 Hold Instructions: Resume on 12/06/22. Would recheck platelet function prior to resuming Label Comments: will stop 5 days prior to surgery Discontinued amlodipine 10 mg tablet 10 mg PO DAILY Qty: 90 3RF carvedilol [Coreg] 6.25 mg tablet 6.25 mg PO BID Qty: 180 3RF Rx Instructions: must administer with a meal/food hydralazine 50 mg tablet 50 mg PO BID chlorthalidone 25 mg tablet 25 mg PO DAILY Qty: 90 3RF amiodarone 200 mg tablet 200 mg PO DAILY Qty: 90 3RF lisinopril 20 mg tablet 20 mg PO BID Qty: 180 3RF Referrals / Follow Up: Rosa Maria Santacurz MD [Primary Care Provider] - Within 1 Week Kvng James MD [Med Staff - Consulting] - See Referral Note (Please follow-up with nephrology upon discharge. Please call their office to schedule hospital follow-up appointment upon discharge.) Teresa Pop PA [Med Staff - Adv Practice Prof] - See Referral Note (Please follow-up with cardiology regarding your high blood pressure in your lungs and the calcium around your mitral valve) Disposition Disposition (needs filled in before D/C Order can be placed): Residential Facility Charges/Coding Visit Charges Inpatient E&M: 12279 Disch Hosp >30min 12/03/22 1507 <Electronically signed by Sammie Castaneda MD> Cosigner Signature (if applicable): CC: Dr. Rosa Maria Santacrzu MD; Dr. Sammie Castaneda MD~ Signed [facility] Work Phone: 1(598) 226-374006-06-[address] [facility] December 03, 2022 3:06pm Note Date/Time December 03, 2022 3:05p m [facility] Medical Records Department [address] [place] [address] Transfer to [facility] MR#: [id number] Acct: [id number] Name: AMAURY BLANK Rep #:[id number] : 1940 82 From: Sammie Castaneda MD PCP: Dr. Rosa Maria Santacruz MD Status:ADM IN Certification of patient admission REQUIRED AT TIME OF ADMISSION. I CERTIFY THAT POST-HOSPITAL ECF SERVICES ARE REQUIRED TO BE GIVEN ON AN IN-PATIENT BASIS BECAUSE OF THE ABOVE NAMED PATIENT'S NEED FOR [facility] CARE ON A CONTINUING BASIS FOR THE CONDITION(S) FOR WHICH HE/SHE WAS RECEIVING IN-PATIENT HOSPITAL SERVICES PRIOR TO HIS/HER TRANSFER TO THE F. 12/03/22 1506<Electronically signed by Sammie Castaneda MD> Diet Diet Order/Speech Therapy: 11/29/22 05:23 Diet: Cardiac - Heart Healthy Food consistency:: Regular Liquid Consistency:: Regular/Thin Is pt able to select menu?: Yes Routine Orders/Code Status Suppository Type: Dulcolax 10mg Suppository Frequency: Daily PRN Routine Lab Work: CBC (3 days) and - (CMP 3 days) Code Status: DNRCC-A Wound(s) Left hodgson: Wound Type: scattered abrasions and skin tears Dressing Change: Adaptic Right forearm: Wound Type: Skin Tear Dressing Change: Adaptic Right elbow: Wound Type: Skin Tear Dressing Change: Adaptic Therapies Physical Therapy: Eval and Treat Occupational Therapy: Eval and Treat Problem/Diagnosis (1) Acute renal insufficiency: Status: Acute Code(s): N28.9 - Disorder of kidney and ureter, unspecified Plan #MYRON on CKD stage IIIb #Klebsiella pneumonia bacteremia likely secondary to Klebsiella pneumonia pneumonia #Elevated troponin, no ACS #Severe pulmonary hypertension/severe mitral annular calcification #Pancytopenia #Hypothyroidism #History of ulcerative colitis #hx CAD status post CABG and stenting #A-fib #Alcohol use history -EtOH negative #Falls #Hx empyema with VATS 82-year-old male with history of CKD stage IIIb, coronary artery disease, PVD, ulcerative colitis, hypothyroidism presented to [facility] 11/29/2022 due to falls and weakness. He was noted to have a right patchy lobe infiltrate and it was suspected he had pneumonia and he was started on antibiotics. He had 2 out of 2 blood cultures for gram-negative rods, speciatedto Klebsiella pneumonia, suspect that lung pneumonia was due to Klebsiella pneumonia as no other source found. Overall he improved significantly and on day of discharge had no complaints and reported his pain in his left leg was better, no breathing complaints. Plan was to send to TCU with oral antibiotics however given interaction with Levaquin and amiodarone decision was made to discharge with 4 more days of IV Rocephin through peripheral IV given short-term. Additionally during this hospitalization: Echocardiogram showed EF of 60% with moderate concentric left ventricular hypertrophy, indeterminate diastolic function as well as severe pulmonary hypertension and severe mitral annular calcification with moderate tricuspid valve insufficiency. Did have elevated BNP of 1355 and he did have a slight right-sided effusion and an O2 sat of 92% on room air and responded well to Bumex, given Bumex due to Lasix intolerance. Did well with Bumex however creatinine worsened and ultimately nephrology was consulted. Was noted a protein in his urine, renal ultrasound with cysts, negative postvoid. Lisinopril and hydrochlorothiazide were held. Ultimately hedid begin to improve with Bumex held and creatinine improving. On day of discharge did have slight bump in AST and ALT but has no complaints at all including no abdominal pain, no diarrhea, no nausea. Can consider repeating liver function in several days and if remains elevated could always consider further GI eval with liver ultrasound and referral outpatient. Discharge instructions as follows: DISCHARGE INSTRUCTIONS PLEASE READ *Please take this with you to your next doctors appointment* -You grew Klebsiella pneumonia and your blood cultures will be transitioned to Rocephin 2 g every 24 hours for 4 days starting 12/04 through 12/07. Given the short duration this can be run through peripheral IV agreeable with a transitional care unit -Would recommend lab work (CMP) to check your kidney function, potassium, and liver function in 2 to 3 days and a CBC in 2 to 3 days to check your platelet function to assess safety of resuming your aspirin. -Your lisinopril and chlorthalidone have been held due to your kidney function, and your amlodipine and hydralazine were held due to your low blood pressure. Carvedilol was also decreased. 1 or multiple of these medications will likely need to be added back over time, continue to routinely check her blood pressure -You had required bumetanide due to initially having some extra fluid on you that you are retaining. -Weigh yourself every day. A sudden weight gain can mean you are retaining fluid. Weigh yourself at the same time of day and in the same kind of clothes. Ideally, weigh yourself first thing in the morning after you empty your bladder,but before you eat breakfast. If you begin to gain weight we may need to restart Bumex as needed or scheduled -Please call your physician if your weight goes up by more than 2 pounds in 1 day or 5 pounds in 1 week. This can be a sign that you are retaining more fluid than you should be. -Please follow-up with nephrology upon discharge. Please call their office to schedule hospital follow-up appointment upon discharge. -Would benefit from following with cardiology upon discharge due to calcifications on your mitral valve and elevated blood pressure in your lungs -Please call your primary care provider's office upon discharge to schedule a hospital follow up within 1 week. -For any concerning signs or symptoms please call 911 or proceed to the nearest emergency department Allergies/Procedures Done in Hospital Allergies hydrochlorothiazide Allergy (Severe, Verified 11/29/22 01:38) Rash furosemide [From Lasix] Allergy (Verified 11/29/22 01:38) Severe Rash Itchy lovastatin [From Mevacor] Allergy (Verified 11/29/22 01:38) Rash amlodipine Adverse Reaction (Verified 11/29/22 01:38) Swelling Procedures: 2-D Echocardiogram Type of Care/Length of Stay Estimated LOS: Convalescent Care Less Than 30 days Type of Care Needed: Skilled Rehab Potential: Fair Prognosis: Fair Additional Orders/Day of Discharge Day of Discharge: 12/03/22 Dietary and Speech Recommendations Dietitian Recommendations/Changes: Continue Cardiac diet Available for diet education as needed Discharge Plan Admission Admit Date/Time: 11/29/22 04:29 Primary Reason for Your Visit: Weakness Attending Provider: Sammie Castaneda Primary Care Provider: Rosa Maria Santacruz Consulting Providers: Jakob Alexander ; Kvng James Instructions Patient Instructions: Pulmonary Hypertension Additional Instructions / Restrictions: DISCHARGE INSTRUCTIONS PLEASE READ *Please take this with you to your next doctors appointment* -You grew Klebsiella pneumonia and your blood cultures will be transitioned to Rocephin 2 g every 24 hours for 4 days starting 12/04 through 12/07. Given the short duration this can be run through peripheral IV agreeable with a transitional care unit -Would recommend lab work (CMP) to check your kidney function, potassium, and liver function in 2 to 3 days and a CBC in 2 to 3 days to check your platelet function to assess safety of resuming your aspirin. -Your lisinopril and chlorthalidone have been held due to your kidney function, and your amlodipine and hydralazine were held due to your low blood pressure. Carvedilol was also decreased. 1 or multiple of these medications will likely need to be added back over time, continue to routinely check her blood pressure -You had required bumetanide due to initially having some extra fluid on you that you are retaining. -Weigh yourself every day. A sudden weight gain can mean you are retaining fluid. Weigh yourself at the same time of day and in the same kind of clothes. Ideally, weigh yourself first thing in the morning after you empty your bladder,but before you eat breakfast. If you begin to gain weight we may need to restart Bumex as needed or scheduled -Please call your physician if your weight goes up by more than 2 pounds in 1 day or 5 pounds in 1 week. This can be a sign that you are retaining more fluid than you should be. -Please follow-up with nephrology upon discharge. Please call their office to schedule hospital follow-up appointment upon discharge. -Would benefit from following with cardiology upon discharge due to calcifications on your mitral valve and elevated blood pressure in your lungs -Please call your primary care provider's office upon discharge to schedule a hospital follow up within 1 week. -For any concerning signs or symptoms please call 911 or proceed to the nearest emergency department Discharge Orders/Prescriptions Prescriptions: New ipratropium-albuterol 0.5 mg-3 mg(2.5 mg base)/3 mL Solution For Nebulization 3 ml inhalation TID PRN (Reason: wheezing or sob) 30 Days Qty: 90 0RF amiodarone 200 mg Tablet 100 mg PO DAILY 30 Days Qty: 15 0RF carvedilol 3.125 mg Tablet 3.125 mg PO BID 30 Days Qty: 60 0RF ceftriaxone 2 gram recon soln 2 g IV Q24H 4 Days Qty: 10 0RF Rx Instructions: Starting 12/04-12/07 Continued balsalazide [Colazal] 750 mg capsule 2,250 mg PO BID ferrous sulfate 325 MG tablet 325 mg PO DAILY Label Comments: Iron supplement zinc gluconate 50 MG tablet 50 mg PO DAILY Label Comments: supplement vitamin B complex 1 EACH capsule 1 each PO DAILY Label Comments: Vitamin supplement levothyroxine 50 mcg tablet 75 mcg PO DAILY atorvastatin [Lipitor] 40 mg tablet 40 mg PO DAILY Qty: 90 3RF Held aspirin 81 MG tablet 81 mg PO DAILY@0800 Hold Instructions: Resume on 12/06/22. Would recheck platelet function prior to resuming Label Comments: will stop 5 days prior to surgery Discontinued amlodipine 10 mg tablet 10 mg PO DAILY Qty: 90 3RF carvedilol [Coreg] 6.25 mg tablet 6.25 mg PO BID Qty: 180 3RF Rx Instructions: must administer with a meal/food hydralazine 50 mg tablet 50 mg PO BID chlorthalidone 25 mg tablet 25 mg PO DAILY Qty: 90 3RF amiodarone 200 mg tablet 200 mg PO DAILY Qty: 90 3RF lisinopril 20 mg tablet 20 mg PO BID Qty: 180 3RF Referrals / Follow Up: Rosa Maria Santacruz MD [Primary Care Provider] - Within 1 Week Kvng James MD [Med Staff - Consulting] - See Referral Note (Please follow-up with nephrology upon discharge. Please call their office to schedule hospital follow-up appointment upon discharge.) Teresa Pop PA [Med Staff - Adv Practice Prof] - See Referral Note (Please follow-up with cardiology regarding your high blood pressure in your lungs and the calcium around your mitral valve) Disposition Disposition (needs filled in before D/C Order can be placed): Residential Facility 12/03/22 1506 <Electronically signed by Sammie Castaneda MD> Cosigner Signature (if applicable): CC: Dr. Rosa Maria Santacruz MD; Dr. Jakob Alexander DO; Dr. Kvng James MD ~ [facility] Work Phone: [phone]) [phone] 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 Rosa Maria Santacruz MD Status:ADM IN Location: [place] [address] Subjective Subjective Resting in bed. Reports has been having loose stools. States has good appetite. Denies any nausea or vomiting. No overnight events. Objective Data Objective Data Vital Signs: Vital Signs Temp Pulse Resp BP Pulse Ox O2 Del Method 97.9 F 68 18 114/51 L 94 Room Air 12/02/22 10:10 12/02/22 10:10 12/02/22 10:10 12/02/22 10:10 12/02/22 10:10 12/02/22 10:10 Oxygen Delivery Method Room Air Weight: 80.3 kg Body Mass Index (BMI) 25.4 Intake & Output: Intake and Output for Last 24 Hours 11/30/22 12/01/22 12/02/22 23:59 23:59 23:59 Intake Total 1455 / 1455 1396.25 / 1396.25 200 / 200 Output Total 1280 / 1280 1000 / 1000 800 / 800 Balance 175 / 175 396.25 / 396.25 -600 / -600 Lab / Micro Data Result Diagrams: 12/01/22 05:35 12/02/22 06:25 Labs: Laboratory Results - last 24 hr 12/01/22 13:20: U Random Total Protein 24.2 H, Urine Creatinine 49.20, Protein/Creatinin Ratio 492 H 12/02/22 06:25: Sodium 139, Potassium 3.3 L, Chloride 110 H, Carbon Dioxide 20.0L, Anion Gap 9, BUN 73 H, Creatinine 3.12 H, Estim Creat Clear Calc 19.17, Est GFR (MDRD) Af Amer 25 L, Est GFR (MDRD) Non-Af 21 L, BUN/Creatinine Ratio 23.4 H, Glucose 112 H, Calcium 8.3 L, Total Bilirubin 0.70, AST 68 H, ALT 39, AlkalinePhosphatase 101, Lactate Dehydrogenase 104, Total Protein 5.2 L, Albumin 2.1 L, Globulin 3.1, Albumin/Globulin Ratio 0.7 L 12/02/22 06:25: Total Creatine Kinase 32 L Micro: Microbiology 11/29/22 02:30 Blood Culture (Wb) - Anticubital Right Blood Culture - Final Klebsiella pneumoniae sp pneum 11/30/22 16:31 Urine, Random Legionella Antigen - Final 11/30/22 16:31 Urine, Random Streptococcus pneumoniae Antigen (M - Final 11/29/22 02:03 Blood Culture (Wb) - Anticubital Left Blood Culture - Preliminary GNR lactose assistant hall director 11/29/22 02:06 Nasal Secretion SARS-CoV-2 & FLU Antigen (Rapid) - Final Physical Exam Narrative Alert awake oriented x 3, no obvious distress s1s2 no murmurs lungs clear abdomen soft no pitting edema Assessment & Plan Assessment/Plan (1) Acute renal insufficiency: PLAN: Acute on chronic renal insufficiency. Baseline creatinine seems to be around 2.0-2.4mg/dL. Serum creatinine was 2.44 mg/dL in July 2022. Creatinine 2.53 on admission, slowly worsening since admission, now up to 3.12mg/dL. No acute or emergent indication for JAVA J2EE ARCHITECT, potassium and bicarb acceptable, patient is nonoliguric and appears near euvolemic. Continue to monitor renal function closely. Labs ordered for morning. Blood pressures acceptable on carvedilol. Patient on room air. Potassium 3.3, replacement ordered for today. Urine analysis does show proteinuria. No hematuria. Urine protein creatinine ratio 492 mg/g. Previous renal Dopplers were negative for stenosis, renal ultrasound ordered, report pending. Postvoid bladder scan was negative. Home medications on hold: Lisinopril and chlorthalidone Was receiving IV Bumex, currently on hold due to worsening renal function. 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 Due to iron deficiency. Saw Dr. Mcintyre. Now he has worseningthrombocytopenia along with anemia. Haptoglobin pending. Normal LDH and CPK level Thrombocytopenia. Follows with hematology. 12/02/22 1158 <Electronically signed by Jackie ZARATE> Cosigner Signature (if applicable): 12/03/22 1244 <Electronically signed by Kvng James MD> CC: ~ Signed [facility] Work Phone: 1(798) 167-213206-06-[address] [facility] December 03, 2022 12:44pm Note Date/Time December 03, 2022 10:32 am [facility] Medical Records Department [address] [place] [address] Progress Note - Nephrology 12/03/22 1023 MR#: [id number] Acct: [id number] Name: AMAURY BLANK Rep #:[id number] : 1940 82 From: Jackie ZARATE PCP: Dr. Rosa Maria Satnacruz MD Status:ADM IN Location: [place] [address] Documented by User: TESSA Nava 12/03/22 10:32 Subjective Subjective Sitting up in bed. Denies any complaints today. Denies any loose bowel movements today. No overnight events. Objective Data Objective Data Vital Signs: Vital Signs Temp Pulse Resp BP Pulse Ox O2 Del Method 98.0 F 58 L 16 124/51 H 96 Room Air 12/03/22 10:00 12/03/22 10:00 12/03/22 10:00 12/03/22 10:00 12/03/22 10:00 12/03/22 10:00 Oxygen Delivery Method Room Air Weight: 80.4 kg Body Mass Index (BMI) 25.4 Intake & Output: Intake and Output for Last 24 Hours 12/01/22 12/02/22 12/03/22 23:59 23:59 23:59 Intake Total 1396.25 / 1396.25 1180 / 1180 640 / 640 Output Total 1000 / 1000 1600 / 1800 700 / 700 Balance 396.25 / 396.25 -420 / -620 -60 / -60 Lab / Micro Data Result Diagrams: 12/03/22 05:57 12/03/22 05:57 Labs: Laboratory Results - last 24 hr 11/30/22 06:10: Diff Path Review Reviewed 12/02/22 06:25: WBC 5.7, RBC 2.38 L, Hgb 8.2 L, Hct 24.8 L, MCV 104.2 H, MCH 34.5 H, MCHC 33.1, RDW Std Deviation 59.2 H, RDW Coeff of Chanel 15.5 H, Plt Count 61 L, MPV 11.6, Immature Gran % (Auto) 1.000 H, Neut % (Auto) 88.9 H, Lymph % (Auto) 2.8 L, Kendall % (Auto) 6.8, Eos % (Auto) 0.3, Baso % (Auto) 0.2, Absolute Neuts (auto) 5.1, Absolute Lymphs (auto) 0.16 L, Nucleated RBC % 0, DifferentialComment COMMENT, Platelet Estimate MOD 12/02/22 06:25: Haptoglobin 307 12/03/22 05:57: WBC 5.4, RBC 2.50 L, Hgb 8.7 L, Hct 26.2 L, MCV 104.8 H, MCH 34.8 H, MCHC 33.2, RDW Std Deviation 60.0 H, RDW Coeff of Chanel 15.5 H, Plt Count 63 L, MPV 11.9, Immature Gran % (Auto) 1.300 H, Neut % (Auto) 78.1 H, Lymph % (Auto) 7.7 L, Kendall % (Auto) 12.0 H, Eos % (Auto) 0.7, Baso % (Auto) 0.2, Absolute Neuts (auto) 4.2, Absolute Lymphs (auto) 0.42 L, Nucleated RBC % 0, Differential Comment SCANNED, Platelet Estimate MKD 12/03/22 05:57: Sodium 138, Potassium 3.4 L, Chloride 112 H, Carbon Dioxide 21.0, Anion Gap 5, BUN 68 H, Creatinine 2.74 H, Estim Creat Clear Calc 21.83, Est GFR (MDRD) Af Amer 29 L, Est GFR (MDRD) Non-Af 24 L, BUN/Creatinine Ratio 24.8 H, Glucose 121 H, Calcium 8.2 L, Total Bilirubin 0.50, AST 161 H, ALT 94 H,Alkaline Phosphatase 163 H, Total Protein 4.9 L, Albumin 2.0 L, Globulin 2.9, Albumin/Globulin Ratio 0.7 L Micro: Microbiology 11/29/22 02:30 Blood Culture (Wb) - Anticubital Right Blood Culture - Final Klebsiella pneumoniae sp pneum 11/30/22 16:31 Urine, Random Legionella Antigen - Final 11/30/22 16:31 Urine, Random Streptococcus pneumoniae Antigen (M - Final 11/29/22 02:03 Blood Culture (Wb) - Anticubital Left Blood Culture - Preliminary GNR lactose assistant hall director 11/29/22 02:06 Nasal Secretion SARS-CoV-2 & FLU Antigen (Rapid) - Final Radiography Diagnostic Testing: Radiology Impression Renal Ultrasound 12/02/22 09:55 IMPRESSION: Multiple bilateral renal cysts. 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 Electronically Signed: Apolinar Rosen MD at 12:47 EDT , Physical Exam Narrative Alert awake oriented x 3, no obvious distress s1s2 no murmurs lungs clear abdomen soft, nontender no pitting edema. Wraps intact to legs Assessment & Plan Assessment/Plan (1) Acute renal insufficiency: PLAN: 82-year-old male with history of CKD, iron deficiency anemia, thrombocytopenia and ulcerative colitis admitted for pneumonia. Nephrology consulted for MYRON. Acute on chronic renal insufficiency. Baseline creatinine seems to be around 2.0-2.4mg/dL. Serum creatinine was 2.44 mg/dL in July 2022. Creatinine 2.53 on admission, peaked 3.12mg/dL yesterday and today serum creatinine 2.74. Patient received 1 L IV fluids yesterday. We will hold off on any further IV fluids for now. No acute or emergent indication for JAVA J2EE ARCHITECT, potassium and bicarb acceptable, patient is nonoliguric and appears near euvolemic. Continue to monitor renal function closely. Potassium improved with replacement, today potassium 3.4 replacement ordered today. Urine analysis showed proteinuria. No hematuria. Urine protein creatinine ratio 492 mg/g. Previous renal Dopplers were negative for stenosis, renal ultrasound no hydro. Postvoid bladder scan was negative. Home medications on hold: Lisinopril and chlorthalidone Was receiving IV Bumex, currently on hold due to worsening renal function. Currently on RA. 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 Due to iron deficiency. Saw Dr. Mcintyre. Now he has worseningthrombocytopenia along with anemia. Normal LDH, haptoglobin and CPK level. Thrombocytopenia. Follows with hematology. History of ulcerative colitis on Colazal Documented by User: Dr. Kvng James MD 12/03/22 12:44 Objective Data Lab / Micro Data Result Diagrams: 12/03/22 05:57 12/03/22 05:57 Assessment & Plan Assessment/Plan (1) Acute renal insufficiency: PLAN: 82-year-old male with history of CKD, iron deficiency anemia, thrombocytopenia and ulcerative colitis admitted for pneumonia. Nephrology consultedfor MYRON. Acute on chronic renal insufficiency. Baseline creatinine seems to be around 2.0-2.4mg/dL. Serum creatinine was 2.44 mg/dL in July 2022. Creatinine 2.53 on admission, peaked 3.12mg/dL yesterday and today serum creatinine 2.74. Patient received 1 L IV fluids yesterday. We will hold off on any further IV fluids for now. No acute or emergent indication for JAVA J[employer]EE ARCHITECT, potassium and bicarb acceptable, patient is nonoliguric and appears near euvolemic. Continue to monitor renal function closely. Potassium improved with replacement, today potassium 3.4 replacement ordered today. Urine analysis showed proteinuria. No hematuria. Urine protein creatinine ratio 492 mg/g. Previous renal Dopplers were negative for stenosis, renal ultrasound no hydro. Postvoid bladder scan was negative. Home medications on hold: Lisinopril and chlorthalidone Was receiving IV Bumex, currently on hold due to worsening renal function. Currently on RA. 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 Due to iron deficiency. Saw Dr. Mcintyre. Now he has worseningthrombocytopenia along with anemia. Normal LDH, haptoglobin and CPK level. Thrombocytopenia. Follows with hematology. History of ulcerative colitis on Colazal Seen and examined independently. Creatinine is better. Possible transfer to TCU today. We can follow him there if needed. Okay to transfer today. Discussed with hospitalist 12/03/22 1032 <Electronically signed by Jackie ZARATE> Cosigner Signature (if applicable): 12/03/22 1244 <Electronically signed by Kvng James MD> CC: ~ Signed [facility] Work Phone: [phone]) 798-923206-05-[address]eda [facility] December 02, 2022 12:00pm Note Date/Time December 02, 2022 7:45a m [facility] Medical Records Department [address] [place] [address] Progress Note - Hospitalist 12/02/22 0744 MR#: [id number] Acct: [id number] Name: AMAURY BLANK Rep #:[id number] : 1940 82 From: Sammie Castaneda MD PCP: Dr. Rosa Maria Santacruz MD Status:ADM IN Location: [place] [address]- Reason for Visit Reason for Visit: Diagnoses Other pancytopenia (11/29/22) Paroxysmal atrial fibrillation (11/29/22) Pneumonia, unspecified organism (11/29/22) Chronic kidney disease, stage 4 (severe) (11/29/22) Disorder of kidney and ureter, unspecified (11/29/22) Weakness (11/29/22) Other specified abnormalities of plasma proteins (11/29/22) Bacteremia (11/29/22) Subjective Subjective Reports his leg pain on the left side is improving, feels he is wheezing slightly but does not feel overtly short of breath Objective Data Objective Data Vital Signs: Vital Signs Temp Pulse Resp BP Pulse Ox O2 Del Method 97.8 F 71 18 145/57 H 92 Room Air 12/02/22 04:01 12/02/22 04:01 12/02/22 04:01 12/02/22 04:01 12/02/22 04:01 12/02/22 04:01 Oxygen Delivery Method Room Air Weight: 80.3 kg Body Mass Index (BMI) 25.4 Intake & Output: Intake and Output for Last 24 Hours 11/30/22 12/01/22 12/02/22 23:59 23:59 23:59 Intake Total 1455 / 1455 1396.25 / 1396.25 100 / 100 Output Total 1280 / 1280 1000 / 1000 800 / 800 Balance 175 / 175 396.25 / 396.25 -700 / -700 Lab / Micro Data Result Diagrams: 12/01/22 05:35 12/02/22 06:25 Labs: Laboratory Results - last 24 hr 12/01/22 13:20: U Random Total Protein 24.2 H, Urine Creatinine 49.20, Protein/Creatinin Ratio 492 H Micro: Microbiology 11/29/22 02:30 Blood Culture (Wb) - Anticubital Right Blood Culture - Final Klebsiella pneumoniae sp pneum 11/30/22 16:31 Urine, Random Legionella Antigen - Final 11/30/22 16:31 Urine, Random Streptococcus pneumoniae Antigen (M - Final 11/29/22 02:03 Blood Culture (Wb) - Anticubital Left Blood Culture - Preliminary GNR lactose assistant hall director 11/29/22 02:06 Nasal Secretion SARS-CoV-2 & FLU Antigen (Rapid) - Final Physical Exam Narrative General: Alert, no apparent distress HEENT: Atraumatic, normocephalic Eyes: Anicteric, normal conjunctiva, extraocular movements grossly intact Neck: Supple Respiratory: Normal respiratory effort when sitting still, slight increased workof breathing when moving, does have some scattered wheezes today Cardiovascular: Regular rate GI: Soft, nontender, nondistended Extremities: Trace edema in lower extremities Musculoskeletal: Moving all extremities Neuro: No overt focal neurological deficits Skin: Left leg with superficial scrapes noted and slight puffiness on dorsum of left foot, bleeds easily Psych: Cooperative Assessment & Plan Assessment/Plan (1) Acute renal insufficiency: (2) Pneumonia: (3) Chronic kidney disease (CKD): QUALIFIERS: Chronic kidney disease stage: stage 4 (severe) Qualified Code(s): N18.4 - Chronic kidney disease, stage 4 (severe) (4) Atrial fibrillation: QUALIFIERS: Atrial fibrillation type: paroxysmal Qualified Code(s): I48.0 - Paroxysmal atrial fibrillation (5) Bacteremia: PLAN: Plan #MYRON on CKD stage IIIb -Appears slightly up overall however most recent value in July was 2.44 withadmission being 2.67 with variable readings prior to that, down trended slightlytoday -11/30: Creatinine worsened again to 2.93 with a BUN of 57 with a slight increase in potassium and chloride, could potentially be cardiorenal. Giving dose of Bumex and repeat BMP this afternoon. Can consider nephrology consult if not improving -12/01: Creatinine up trended to 3.08 despite diuresis, continuing Bumex, creatinine roughly the same today at 3.05 and BUN increasing. Nephrology consulted -12/02: Creatinine continues to increase, does have protein in urine. Previous renal Dopplers negative for stenosis, negative post void, renal ultrasound pending. Holding IV Bumex. Nephrology following. Continue to hold lisinopril and hydrochlorothiazide #Fever/chills and gram-negative jessy bacteremia -Tmax 101 while in the hospital -Pancytopenia with 20 bands -Checks x-ray in ED concerning for right lower lobe infiltrate -Blood cultures -Urine antigens -Rocephin and azithromycin initially started due to concern for community- acquired pneumonia however patient continued to be febrile so Rocephin was changed to Zosyn 1 2 out of 2 blood cultures growing gram-negative rods -Await cultures and speciation -11/30: Continue Zosyn, prelim blood cultures with gram-negative jessy lactose assistant hall director's. Awaiting final cultures -12/01: First blood culture resulted with Klebsiella pneumonia with an intermediate sensitivity to Zosyn, will change to cefepime based on sensitivities -12/02: Continues to improve on cefepime #Elevated troponin -Suspect type II in setting of bacteremia and CKD -Troponin initially 134 and went to 139 down trended to 92 #Severe pulmonary hypertension/severe mitral annular calcification -Echocardiogram 11/29 obtained with moderate concentric left ventricular hypertrophy with inability to assess diastolic dysfunction, severe mitral annular calcification, moderate tricuspid valve insufficiency, EF of 60% with left and right atrium is enlarged and severe pulmonary hypertension -Last echocardiogram 09/26/2020 with segmental dysfunction, EF 65% with bilateralatrial enlargement and moderate to severe mitral annular calcification with mildto moderate tricuspid insufficiency and RVSP estimated to be 34 inability to assess diastolic dysfunction -Not acutely in respiratory distress, will need to monitor BP and respiratory status closely.? Follows with cardiology on an outpatient basis, may need to be considered for surgical eval once medically stable -11/30: BNP 1355, had a previous of 528. Chest x-ray appears to possibly have slight right-sided effusion, given one-time dose of Bumex with O2 sat 92% on room air -12/01: Receiving IV Bumex daily given Lasix intolerance, continue monitor daily weights and I's and O's. -12/02: IV Bumex held due to worsening creatinine, did have some wheezing today wewill give trial of nebs #Pancytopenia -Chronic but appears to be worse -Worsening likely secondary to underlying infection -Has followed with Dr. Mcintyre in the past -Iron panel consistent with anemia of chronic disease -Liver panel fairly benign -11/30: Still suspect in part this is due to to infection though if no improvementmay need further work-up or bone marrow biopsy as an outpatient if not already done -12/01: White blood cell count improving, hemoglobin stable, platelet count slightly improved today #Hypothyroidism -TSH 0.75 -Continue Synthroid #History of ulcerative colitis -Continue Colazal #hx CAD status post CABG and stenting -CABG x2- ZARAGOZA to LAD, Aorto post descending coronary artery to revers SVG 02/12/17; atherectomy to ostial RCA, LINDY to Prox/Mid RCA 04/2009 -Aspirin held due to thrombocytopenia, carvedilol and atorvastatin continued #A-fib -Continue amiodarone and will decrease carvedilol due to soft pressures, not on AC due to history of GI bleed -11/30: Though amiodarone was still 200 mg on his home med list cardiology note recently reported he was to decrease to 100 mg, will reflect this change while inpatient #Alcohol use history -EtOH negative -We will give B12, thiamine, folate supplementation #Falls -Treat present illness -PT/OT #Hx empyema with VATS -In August 2020 at [facility] after CT surgery evaluation -Had resultant pneumothorax at that time #DVT ppx: SCDs ordered given thrombocytopenia Sammie Castaneda MD Charges/Coding Visit Charges Inpatient E&M: 54131 Subs Hosp L2 12/02/22 1200 <Electronically signed by Sammie Castaneda MD> Cosigner Signature (if applicable): CC: ~ Signed [facility] Work Phone: [phone]) 330-993306-04-[address] [facility] December 01, 2022 10:03am Note Date/Time December 01, 2022 10:00 am [facility] Medical Records Department [address] [place] [address] Consultation - Nephrology 12/01/22 0957 MR#: [id number] Acct: [id number] Name: AMAURY BLANK Rep #:[id number] : 1940 82 From: Kvng fernandes MD PCP: Dr. Rosa Maria Santacruz MD Status:ADM IN Location: [place] [address] Assessment & Plan Assessment/Plan (1) Acute renal insufficiency: PLAN: Acute on chronic renal insufficiency. Baseline creatinine seems to be around 2.0. Slowly worsening since admission, now up to 3. Urine analysis does show proteinuria. No hematuria. I will send urine for quantification. Previous renal Dopplers were negative for stenosis, renal ultrasound ordered. postvoid bladder scan was negative yesterday. Medication list reviewed. History of anemia. Due to iron deficiency. Saw Dr. Mcintyre. Now he has worseningthrombocytopenia along with anemia. I will send a LDH and haptoglobin, CPK level Thrombocytopenia. Usually sees hematology. HPI Consult Data Date of Consult: 12/01/22 HPI Narrative Reason for Consultation: Acute on chronic renal failure HPI Narrative: AMAURY BLANK, is a 82 M who presents to the hospital after a mechanical fall. Nephrology consultation requested due to progressive renal failure. It seems she does have history of at least CKD stage IIIb. His creatinine was around 1.5about 2 years ago, most of last year his creatinine is around 2.0. Recently creatinine has increased to 2.5-3.0. History of coronary artery disease, status post PCI, atrial fibrillation, pulmonary hypertension presumably secondary History of atherosclerotic aortic bypass surgery. He does follow with Dr. 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 Renal Dopplers in the past did not show any renal artery stenosis. Denies taking NSAIDs. As per staff, postvoid bladder scan was negative yesterday. Patient himself denies any urine related problems. [facility] Medical History Alcohol use Ambulates with cane Atherosclerotic heart disease of [place] coronary artery without angina pectoris Atrial fibrillation Atrial fibrillation and flutter Cardiology follow-up encounter Carotid artery stenosis Dietary restriction Emphysema of lung Essential hypertension Former smoker Hematemesis/vomiting blood High cholesterol History of atrial fibrillation History of cardioversion (~05/09/20) History of coronary artery disease History of echocardiogram History of GI bleed History of right inguinal hernia History of stress test History of transesophageal echocardiography (ROSI) History of umbilical hernia Hx of ulcerative colitis Hypercholesterolemia Hyperlipidemia Hypertension Injury of head and neck 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 Mitral valve insufficiency PAD (peripheral artery disease) Premature atrial contractions Right carotid bruit Shortness of breath on exertion Subclavian artery stenosis, left (~10/15/19) Thrombocytopenia Thrombocytopenia Thyroid disease Ulcerative colitis Ulcerative colitis Upper GI bleed Upper GI bleed Walker as ambulation aid Wears glasses Wears hearing aid Home Medications ferrous sulfate 325 mg (65 mg iron) tablet 325 mg PO DAILY vitamin 05/28/15 [History Last Taken 05/09/20] zinc gluconate 50 mg tablet 50 mg PO DAILY supplement 05/28/15 [History Last Taken 05/09/20] vitamin B complex 1 each PO DAILY vitamin 02/07/16 [History Last Taken 05/09/20] aspirin 81 mg tablet,delayed release 81 mg PO DAILY@0800 [facility] 08/29/16 [History Last Taken 04/23/21] levothyroxine 50 mcg tablet 75 mcg PO DAILY thyroid 06/13/20 [History Last Taken Unknown] balsalazide 750 mg capsule (Colazal) 2,250 mg PO BID Check with primary doctor 05/16/21 [History Last Taken Unknown] atorvastatin 40 mg tablet (Lipitor) 40 mg PO DAILY #90 tabs 03/13/22 [Rx Last Taken Unknown] chlorthalidone 25 mg tablet 25 mg PO DAILY #90 tabs 05/21/22 [Rx Last Taken Unknown] amiodarone 200 mg tablet 200 mg PO DAILY Afib/Flutter #90 tabs 05/27/22 [Rx Last Taken Unknown] amlodipine 10 mg tablet 10 mg PO DAILY #90 tabs 06/20/22 [Rx Last Taken Unknown] carvedilol 6.25 mg tablet (Coreg) 6.25 mg PO BID #180 tabs 10/17/22 [Rx Last Taken Unknown] lisinopril 20 mg tablet 20 mg PO BID #180 tabs 11/26/22 [Rx Last Taken Unknown] hydralazine 50 mg tablet 50 mg PO BID 11/29/22 [History Last Taken Unknown] Allergy/AdvReac Type Severity Reaction Status Date / Time hydrochlorothiazide Allergy Severe Rash Verified 11/29/22 01:38 furosemide [From Lasix] Allergy Severe Verified 11/29/22 01:38 Rash Itchy lovastatin [From Mevacor] Allergy Rash Verified 11/29/22 01:38 amlodipine AdvReac Swelling Verified 11/29/22 01:38 Family History Father CAD (coronary artery disease) Mother Cancer breast Surgical History Aortocoronary bypass status (~02/12/17) History of cardiac catheterization History of hand surgery History of right inguinal hernia repair History of umbilical hernia repair History of vasectomy Hx of CABG Hx of colonoscopy Hx of esophagogastroduodenoscopy Hx of heart bypass surgery S/P right inguinal hernia repair S/P umbilical hernia repair, follow-up exam Status post insertion of drug-eluting stent into right coronary artery for coronary artery disease (~04/2009) Social History adopted: No household members: spouse housing: house number of children: 2 current occupational status: retired Smoking Status: Former smoker Tobacco: How many years used: 50 (stopped about 10 yrs ago) how long ago did patient quit smokin years ago alcohol intake: current alcohol intake frequency: 3 or more drinks per day Alcohol type: beer, wine and hard liquor substance use type: does not use caffeine: Yes Type: coffee Number of servings: 2 ROS ROS Narrative Negative except above Physical Exam Narrative Alert awake oriented x 3 no obvious distress no pallor no icterus no JVD s1s2 no murmurs lungs clear abdomen soft no organomegaly no edema no cyanosis Lab / Micro Data Result Diagrams: 12/01/22 05:35 12/01/22 05:35 Labs: Laboratory Results - last 24 hr 11/30/22 14:33: Sodium 136, Potassium 4.4, Chloride 108 H, Carbon Dioxide 18.0 L, Anion Gap 10, BUN 62 H, Creatinine 3.08 H, Estim Creat Clear Calc 19.42, Est GFR (MDRD) Af Amer 25 L, Est GFR (MDRD) Non-Af 21 L, BUN/Creatinine Ratio 20.1 H, Glucose 139 H, Calcium 8.3 L 11/30/22 16:31: Urine Osmolality 361, Ur Random Sodium 34, Urine Creatinine 55.50, Urine Potassium 87.0, Urine Chloride 92, Urine Urea Nitrogen 373 12/01/22 05:35: WBC 4.9, RBC 2.39 L, Hgb 8.4 L, Hct 25.2 L, MCV 105.4 H, MCH 35.1 H, MCHC 33.3, RDW Std Deviation 60.7 H, RDW Coeff of Chanel 15.6 H, Plt Count 55 L, MPV 11.5, Immature Gran % (Auto) 1.400 H, Neut % (Auto) 85.5 H, Lymph % (Auto) 4.5 L, Kendall % (Auto) 8.0, Eos % (Auto) 0.2, Baso % (Auto) 0.4, Absolute Neuts (auto) 4.2, Absolute Lymphs (auto) 0.22 L, Nucleated RBC % 0, DifferentialComment SCANNED, Platelet Estimate MKD DEC, Hypochromasia 1+, Anisocytosis 1+, Macrocytosis 1+, Courtland Cells 1+ 12/01/22 05:35: Sodium 137, Potassium 3.9, Chloride 108 H, Carbon Dioxide 21.0, Anion Gap 8, BUN 69 H, Creatinine 3.05 H, Estim Creat Clear Calc 19.61, Est GFR (MDRD) Af Amer 25 L, Est GFR (MDRD) Non-Af 21 L, BUN/Creatinine Ratio 22.6 H, Glucose 104, Calcium 8.4 L, Total Bilirubin 0.80, AST 28, ALT 16, Alkaline Phosphatase 61, Total Protein 5.0 L, Albumin 2.2 L, Globulin 2.8, Albumin/Globulin Ratio 0.8 L Micro: Microbiology 11/29/22 02:30 Blood Culture (Wb) - Anticubital Right Blood Culture - Final Klebsiella pneumoniae sp pneum 11/30/22 16:31 Urine, Random Legionella Antigen - Final 11/30/22 16:31 Urine, Random Streptococcus pneumoniae Antigen (M - Final 11/29/22 02:03 Blood Culture (Wb) - Anticubital Left Blood Culture - Preliminary GNR lactose assistant hall director 12/01/22 1000 <Electronically signed by Kvng James MD> Cosigner Signature (if applicable): CC: Dr. Rosa Maria Santacruz MD; Dr. Jakob Alexander DO; Dr. Kvng James MD~ Signed ADDENDUM by Dr. Kvng James MD on 12/01/22 at 1003 Addendum dc bumex for now 12/01/22 1003<Electronically signed by Kvng James MD> Cosigner Signature (if applicable): cc: Dr. Rosa Maria Santacrzu MD; Dr. Jakob Alexander DO; Dr. Kvng James MD ~* Signed [facility] Work Phone: [phone]) 273-986406-04-[address] [facility] December 01, 2022 9:45am Note Date/Time December 01, 2022 7:56a m [facility] Medical Records Department [address] [place] [id number] Progress Note - Hospitalist 12/01/22 0752 MR#: [id number] Acct: [id number] Name: AMAURY BLANK Rep #:[id number] : 1940 82 From: Sammie Castaneda MD PCP: Dr. Rosa Maria Santacruz MD Status:ADM IN Location: [place] [address]- 1 Reason for Visit Reason for Visit: Diagnoses Other pancytopenia (11/29/22) Paroxysmal atrial fibrillation (11/29/22) Pneumonia, unspecified organism (11/29/22) Chronic kidney disease, stage 4 (severe) (11/29/22) Disorder of kidney and ureter, unspecified (11/29/22) Weakness (11/29/22) Other specified abnormalities of plasma proteins (11/29/22) Bacteremia (11/29/22) Subjective Subjective Is feeling much better than he had been, sitting up in bed eating. Feels no pain when lying or sitting in bed but does feel like his hip knee and ankle acheon the left side after his fall when he moves around Objective Data Objective Data Vital Signs: Vital Signs Temp Pulse Resp BP Pulse Ox O2 Del Method 97.9 F 63 16 110/50 L 93 Room Air 12/01/22 05:00 12/01/22 05:00 12/01/22 05:00 12/01/22 05:00 12/01/22 05:00 12/01/22 05:00 Oxygen Delivery Method Room Air Weight: 81.2 kg Body Mass Index (BMI) 25.7 Intake & Output: Intake and Output for Last 24 Hours 11/29/22 11/30/22 12/01/22 23:59 23:59 23:59 Intake Total 2682.5 / 2682.5 1455 / 1455 110 / 110 Output Total 150 / 150 1280 / 1280 900 / 900 Balance 2532.5 / 2532.5 175 / 175 -790 / -790 Lab / Micro Data Result Diagrams: 12/01/22 05:35 12/01/22 05:35 Labs: Laboratory Results - last 24 hr 11/30/22 14:33: Sodium 136, Potassium 4.4, Chloride 108 H, Carbon Dioxide 18.0 L, Anion Gap 10, BUN 62 H, Creatinine 3.08 H, Estim Creat Clear Calc 19.42, Est GFR (MDRD) Af Amer 25 L, Est GFR (MDRD) Non-Af 21 L, BUN/Creatinine Ratio 20.1 H, Glucose 139 H, Calcium 8.3 L 11/30/22 16:31: Urine Osmolality 361, Ur Random Sodium 34, Urine Creatinine 55.50, Urine Potassium 87.0, Urine Chloride 92, Urine Urea Nitrogen 373 12/01/22 05:35: WBC 4.9, RBC 2.39 L, Hgb 8.4 L, Hct 25.2 L, MCV 105.4 H, MCH 35.1 H, MCHC 33.3, RDW Std Deviation 60.7 H, RDW Coeff of Chanel 15.6 H, Plt Count 55 L, MPV 11.5, Immature Gran % (Auto) 1.400 H, Neut % (Auto) 85.5 H, Lymph % (Auto) 4.5 L, Kendall % (Auto) 8.0, Eos % (Auto) 0.2, Baso % (Auto) 0.4, Absolute Neuts (auto) 4.2, Absolute Lymphs (auto) 0.22 L, Nucleated RBC % 0, DifferentialComment SCANNED, Platelet Estimate MKD DEC, Hypochromasia 1+, Anisocytosis 1+, Macrocytosis 1+, Anil Cells 1+ 12/01/22 05:35: Sodium 137, Potassium 3.9, Chloride 108 H, Carbon Dioxide 21.0, Anion Gap 8, BUN 69 H, Creatinine 3.05 H, Estim Creat Clear Calc 19.61, Est GFR (MDRD) Af Amer 25 L, Est GFR (MDRD) Non-Af 21 L, BUN/Creatinine Ratio 22.6 H, Glucose 104, Calcium 8.4 L, Total Bilirubin 0.80, AST 28, ALT 16, Alkaline Phosphatase 61, Total Protein 5.0 L, Albumin 2.2 L, Globulin 2.8, Albumin/Globulin Ratio 0.8 L Micro: Microbiology 11/29/22 02:30 Blood Culture (Wb) - Anticubital Right Blood Culture - Final Klebsiella pneumoniae sp pneum 11/30/22 16:31 Urine, Random Legionella Antigen - Final 11/30/22 16:31 Urine, Random Streptococcus pneumoniae Antigen (M - Final 11/29/22 02:03 Blood Culture (Wb) - Anticubital Left Blood Culture - Preliminary GNR lactose assistant hall director 11/29/22 02:06 Nasal Secretion SARS-CoV-2 & FLU Antigen (Rapid) - Final Physical Exam Narrative General: Alert, no apparent distress HEENT: Atraumatic, normocephalic Eyes: Anicteric, normal conjunctiva, extraocular movements grossly intact Neck: Supple Respiratory: Normal respiratory effort, improving aeration Cardiovascular: Regular rate GI: Soft, nontender, nondistended Extremities: Trace edema left leg Musculoskeletal: Moving all extremities Neuro: No overt focal neurological deficits Skin: Left leg wrapped Psych: Cooperative Assessment & Plan Assessment/Plan (1) Acute renal insufficiency: (2) Pneumonia: (3) Chronic kidney disease (CKD): QUALIFIERS: Chronic kidney disease stage: stage 4 (severe) Qualified Code(s): N18.4 - Chronic kidney disease, stage 4 (severe) (4) Atrial fibrillation: QUALIFIERS: Atrial fibrillation type: paroxysmal Qualified Code(s): I48.0 - Paroxysmal atrial fibrillation (5) Bacteremia: PLAN: Plan #Fever/chills and gram-negative jessy bacteremia -Tmax 101 while in the hospital -Pancytopenia with 20 bands -Checks x-ray in ED concerning for right lower lobe infiltrate -Blood cultures -Urine antigens -Rocephin and azithromycin initially started due to concern for community- acquired pneumonia however patient continued to be febrile so Rocephinwas changed to Zosyn 1 2 out of 2 blood cultures growing gram-negative rods -Await cultures and speciation -11/30: Continue Zosyn, prelim blood cultures with gram-negative jessy lactose assistant hall director's. Awaiting final cultures -12/01: First blood culture resulted with Klebsiella pneumonia with an intermediate sensitivity to Zosyn, will change to cefepime based on sensitivities #Elevated troponin -Suspect type II in setting of bacteremia and CKD -Troponin initially 134 and went to 139 down trended to 92 #Severe pulmonary hypertension/severe mitral annular calcification -Echocardiogram 11/29 obtained with moderate concentric left ventricular hypertrophy with inability to assess diastolic dysfunction, severe mitral annular calcification, moderate tricuspid valve insufficiency, EF of 60% with left and right atrium is enlarged and severe pulmonary hypertension -Last echocardiogram 09/26/2020 with segmental dysfunction, EF 65% with bilateralatrial enlargement and moderate to severe mitral annular calcification with mildto moderate tricuspid insufficiency and RVSP estimated to be 34 inability to assess diastolic dysfunction -Not acutely in respiratory distress, will need to monitor BP and respiratory status closely.? Follows with cardiology on an outpatient basis, may need to be considered for surgical eval once medically stable -11/30: BNP 1355, had a previous of 528. Chest x-ray appears to possibly have slight right-sided effusion, given one-time dose of Bumex with O2 sat 92% on room air -12/01: Receiving IV Bumex daily given Lasix intolerance, continue monitor daily weights and I's and O's. #MYRON on CKD stage IIIb -Appears slightly up overall however most recent value in July was 2.44 withadmission being 2.67 with variable readings prior to that, down trended slightlytoday -11/30: Creatinine worsened again to 2.93 with a BUN of 57 with a slight increase in potassium and chloride, could potentially be cardiorenal. Giving dose of Bumex and repeat BMP this afternoon. Can consider nephrology consult if not improving -12/01: Creatinine up trended to 3.08 despite diuresis, continuing Bumex, creatinine roughly the same today at 3.05 and BUN increasing. Nephrology consulted #Pancytopenia -Chronic but appears to be worse -Worsening likely secondary to underlying infection -Has followed with Dr. Mcintyre in the past -Iron panel consistent with anemia of chronic disease -Liver panel fairly benign -11/30: Still suspect in part this is due to to infection though if no improvementmay need further work-up or bone marrow biopsy as an outpatient if not already done -12/01: White blood cell count improving, hemoglobin stable, platelet count slightly improved today #Hypothyroidism -TSH 0.75 -Continue Synthroid #History of ulcerative colitis -Continue Colazal #hx CAD status post CABG and stenting -CABG x2- ZARAGOZA to LAD, Aorto post descending coronary artery to revers SVG 02/12/17; atherectomy to ostial RCA, LINDY to Prox/Mid RCA 04/2009 -Aspirin held due to thrombocytopenia, carvedilol and atorvastatin continued #A-fib -Continue amiodarone and will decrease carvedilol due to soft pressures, not on AC due to history of GI bleed -11/30: Though amiodarone was still 200 mg on his home med list cardiology note recently reported he was to decrease to 100 mg, will reflect this change while inpatient #Alcohol use history -EtOH negative -We will give B12, thiamine, folate supplementation #Falls -Treat present illness -PT/OT #Hx empyema with VATS -In August 2020 at [facility] after CT surgery evaluation -Had resultant pneumothorax at that time #DVT ppx: SCDs ordered given thrombocytopenia Sammie Castaneda MD Charges/Coding Visit Charges Inpatient E&M: 95387 Subs Hosp L2 12/01/22 0945 <Electronically signed by Sammie Castaneda MD> Cosigner Signature (if applicable): CC: ~ Signed [facility] Work Phone: 1(830) 756-199706-03-[address] [facility] November 30, 2022 9:58am Note Date/Time November 30, 2022 7:32a [facility] Medical Records Department [address] [place] [address] Progress Note - Hospitalist 11/30/22 0731 MR#: [id number] Acct: [id number] Name: AMAURY BLANK Rep #:[id number] : 1940 82 From: Sammie Castaneda MD PCP: Dr. Rosa Maria Santacruz MD Status:ADM IN Location: [place] [address] Reason for Visit Reason for Visit: Diagnoses Other pancytopenia (11/29/22) Pneumonia, unspecified organism (11/29/22) Disorder of kidney and ureter, unspecified (11/29/22) Weakness (11/29/22) Other specified abnormalities of plasma proteins (11/29/22) Subjective Subjective Patient continues to deny any specific complaints and denies having any shortness of breath or cough. Does have some oozing from right elbow wound and left leg wound with dressings to be changed this a.m. Objective Data Objective Data Vital Signs: Vital Signs Temp Pulse Resp BP Pulse Ox O2 Del Method 98.2 F 77 16 124/57 H 96 Room Air 11/30/22 05:20 11/30/22 05:20 11/30/22 05:20 11/30/22 05:20 11/30/22 05:20 11/30/22 05:20 Oxygen Delivery Method Room Air Weight: 78.5 kg Body Mass Index (BMI) 24.8 Intake & Output: Intake and Output for Last 24 Hours 11/28/22 11/29/22 11/30/22 23:59 23:59 23:59 Intake Total 2682.5 / 2682.5 50 / 50 Output Total 150 / 150 30 / 30 Balance 2532.5 / 2532.5 Lab / Micro Data Result Diagrams: 11/30/22 06:10 11/30/22 06:10 Labs: Laboratory Results - last 24 hr 11/29/22 02:03: Diff Path Review Reviewed 11/29/22 06:55: Immature Gran % (Auto) ENTERPRISE MANAGER, Neut % (Auto) ENTERPRISE MANAGER, Lymph % (Auto) ENTERPRISE MANAGER, Kendall % (Auto) ENTERPRISE MANAGER, Eos % (Auto) ENTERPRISE MANAGER, Baso % (Auto) ENTERPRISE MANAGER, Absolute Lymphs (auto) 0.41L, Total Counted 100, Neutrophils % (Manual) 39 L, Band Neutrophils % 20 H, Lymphocytes % (Manual) 18 L, Monocytes % (Manual) 6, Metamyelocytes % 17 H, DiffPath Review Reviewed, Platelet Estimate MOD DEC, Microcytosis ENTERPRISE MANAGER, Macrocytosis 1+, Ovalocytes RARE 11/29/22 06:55: Sodium 143, Potassium 4.8, Chloride 115 H, Carbon Dioxide 20.0 L, Anion Gap 8, BUN 45 H, Creatinine 2.53 H, Estim Creat Clear Calc 23.64, Est GFR (MDRD) Af Amer 32 L, Est GFR (MDRD) Non-Af 26 L, BUN/Creatinine Ratio 17.8, Glucose 99, Calcium 8.1 L, Iron 6 L, TIBC 187 L, Iron Saturation 3.2 L, [id number] H, Troponin I High Sens 139 H*, Folate 5.50, TSH 0.75 11/29/22 06:55: Vitamin B12 228 11/29/22 08:51: Troponin I High Sens 128 H* 11/29/22 12:39: Troponin I High Sens 92 H 11/30/22 06:10: WBC 3.5 L, RBC 2.41 L, Hgb 8.5 L, Hct 26.0 L, MCV 107.9 H, MCH 35.3 H, MCHC 32.7, RDW Std Deviation 62.4 H, RDW Coeff of Chanel 15.7 H, Plt Count 48 L*, MPV 12.0, Immature Gran % (Auto) 0.300, Neut % (Auto) 87.8 H, Lymph % (Auto) 6.1 L, Kendall % (Auto) 5.2, Eos % (Auto) 0.0, Baso % (Auto) 0.6, Absolute Neuts (auto) 3.0, Absolute Lymphs (auto) 0.21 L, Nucleated RBC % 0, DifferentialComment SCANNED, Diff Path Review October foll, Platelet Estimate MKD DEC 11/30/22 06:10: Sodium 138, Potassium 5.2 H, Chloride 112 H, Carbon Dioxide 20.0L, Anion Gap 6, BUN 57 H, Creatinine 2.93 H, Estim Creat Clear Calc 20.42, Est GFR (MDRD) Af Amer 27 L, Est GFR (MDRD) Non-Af 22 L, BUN/Creatinine Ratio 19.5, Glucose 99, Calcium 8.1 L, Total Bilirubin 0.80, AST 33, ALT 19, Alkaline Phosphatase 63, Total Protein 5.2 L, Albumin 2.5 L, Globulin 2.7, Albumin/Globulin Ratio 0.9, Free T4 1.20 11/30/22 06:10: B-Natriuretic Peptide 1355.2 H Micro: Microbiology 11/29/22 02:03 Blood Culture (Wb) - Anticubital Left Blood Culture - Preliminary GNR lactose assistant hall director 11/29/22 02:30 Blood Culture (Wb) - Anticubital Right Blood Culture - Preliminary GNR lactose assistant hall director 11/29/22 02:06 Nasal Secretion SARS-CoV-2 & FLU Antigen (Rapid) - Final Radiography Diagnostic Testing: Radiology Impression Echocardiogram 11/29/22 05:22 Interpretation Summary The study was technically difficult. Moderate concentric left ventricular hypertrophy. The left ventricular ejection fraction is 60 %. Diastolic function is indeterminate. The left atrium is severely enlarged. 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 Moderate (2+) tricuspid valve insufficiency. Severe pulmonary hypertension. The right atrium is moderately enlarged. Ordering Physician: Jakob Alexander Referring Physician: ROSA MARIA SANTACRUZ Performed By: Rosalia Khan RDCS Physical Exam Narrative General: Alert, no apparent distress HEENT: Atraumatic, normocephalic Eyes: Anicteric, normal conjunctiva, extraocular movements grossly intact Neck: Supple Respiratory: Normal respiratory effort, somewhat coarse in right lower base greater than left Cardiovascular: Regular rate GI: Soft, nontender, nondistended Extremities: No edema Musculoskeletal: Moving all extremities Neuro: No overt focal neurological deficits Skin: Right elbow with some oozing from skin tear, left leg wrapped Psych: Cooperative Assessment & Plan Assessment/Plan (1) Acute renal insufficiency: (2) Pneumonia: (3) Chronic kidney disease (CKD): QUALIFIERS: Chronic kidney disease stage: stage 4 (severe) Qualified Code(s): N18.4 - Chronic kidney disease, stage 4 (severe) (4) Atrial fibrillation: QUALIFIERS: Atrial fibrillation type: paroxysmal Qualified Code(s): I48.0 - Paroxysmal atrial fibrillation (5) Bacteremia: PLAN: Plan #Fever/chills and gram-negative jessy bacteremia -Tmax 101 while in the hospital -Pancytopenia with 20 bands -Checks x-ray in ED concerning for right lower lobe infiltrate -Blood cultures -Urine antigens -Rocephin and azithromycin initially started due to concern for community- acquired pneumonia however patient continued to be febrile so Rocephin was changed to Zosyn 1 2 out of 2 blood cultures growing gram-negative rods -Await cultures and speciation -11/30: Continue Zosyn, prelim blood cultures with gram-negative jessy lactose assistant hall director's. Awaiting final cultures #Elevated troponin -Suspect type II in setting of bacteremia and CKD -Troponin initially 134 and went to 139 down trended to 92 #Severe pulmonary hypertension/severe mitral annular calcification -Echocardiogram 11/29 obtained with moderate concentric left ventricular hypertrophy with inability to assess diastolic dysfunction, severe mitral annular calcification, moderate tricuspid valve insufficiency, EF of 60% with left and right atrium is enlarged and severe pulmonary hypertension -Last echocardiogram 09/26/2020 with segmental dysfunction, EF 65% with bilateralatrial enlargement and moderate to severe mitral annular calcification with mildto moderate tricuspid insufficiency and RVSP estimated to be 34 inability to assess diastolic dysfunction -Not acutely in respiratory distress, will need to monitor BP and respiratory status closely.? Follows with cardiology on an outpatient basis, may need to be considered for surgical eval once medically stable -11/30: BNP 1355, had a previous of 528. Chest x-ray appears to possibly have slight right-sided effusion, given one-time dose of Bumex with O2 sat 92% on room air #CKD stage IIIb -Appears slightly up overall however most recent value in July was 2.44 withadmission being 2.67 with variable readings prior to that, down trended slightlytoday -11/30: Creatinine worsened again to 2.93 with a BUN of 57 with a slight increase in potassium and chloride, could potentially be cardiorenal. Giving dose of Bumex and repeat BMP this afternoon. Can consider nephrology consult if not improving #Pancytopenia -Chronic but appears to be worse -Worsening likely secondary to underlying infection -Has followed with Dr. Mcintyre in the past -Iron panel consistent with anemia of chronic disease -Liver panel fairly benign -11/30: Still suspect in part this is due to to infection though if no improvementmay need further work-up or bone marrow biopsy as an outpatient if not already done #Hypothyroidism -TSH 0.75 -Continue Synthroid #History of ulcerative colitis -Continue Colazal #hx CAD status post CABG and stenting -CABG x2- ZARAGOZA to LAD, Aorto post descending coronary artery to revers SVG 02/12/17; atherectomy to ostial RCA, LINDY to Prox/Mid RCA 04/2009 -Aspirin held due to thrombocytopenia, carvedilol and atorvastatin continued #A-fib -Continue amiodarone and will decrease carvedilol due to soft pressures, not on AC due to history of GI bleed -11/30: Though amiodarone was still 200 mg on his home med list cardiology note recently reported he was to decrease to 100 mg, will reflect this change while inpatient #Alcohol use history -EtOH negative -We will give B12, thiamine, folate supplementation #Falls -Treat present illness -PT/OT #Hx empyema with VATS -In August 2020 at [facility] after CT surgery evaluation -Had resultant pneumothorax at that time #DVT ppx: SCDs ordered given thrombocytopenia Sammie Castaneda MD Charges/Coding Visit Charges Inpatient E&M: 14464 Subs Hosp L2 11/30/22 0958 <Electronically signed by Sammie Castaneda MD> Cosigner Signature (if applicable): CC: ~ Signed [facility] Work Phone: 1(954) 501-590006-02-[address] [facility] November 29, 2022 4:50pm Note Date/Time November 29, 2022 9:09a m [facility] Medical Records Department [address] [place] [address] Progress Note - Hospitalist 11/29/22 0857 MR#: [id number] Acct: [id number] Name: AMAURY BLANK Rep #:[id number] : 1940 82 From: Sammie Castaneda MD PCP: Dr. Rosa Maria Santacruz MD Status:ADM IN Location: [facility]- Hospitalist Note 82-year-old male history of alcohol use, A-fib, emphysema, coronary artery disease, GI bleed, ulcerative colitis presented to [facility] 11/28 for falls, weakness, fever. At time of evaluation he reports feeling roughly the same and has no acute or focal complaints. #Fever/chills and gram-negative jessy bacteremia -Tmax 101 while in the hospital -Pancytopenia with 20 bands -Checks x-ray in ED concerning for right lower lobe infiltrate -Blood cultures -Urine antigens -Rocephin and azithromycin initially started due to concern for community- acquired pneumonia however patient continued to be febrile so Rocephin was changed to Zosyn 1 2 out of 2 blood cultures growing gram-negative rods -Await cultures and speciation #Elevated troponin -Suspect type II in setting of bacteremia and CKD -Troponin initially 134 and went to 139 down trended to 92 #Severe pulmonary hypertension/severe mitral annular calcification -Echocardiogram 11/29 obtained with moderate concentric left ventricular hypertrophy with inability to assess diastolic dysfunction, severe mitral annular calcification, moderate tricuspid valve insufficiency, EF of 60% with left and right atrium is enlarged and severe pulmonary hypertension -Last echocardiogram 09/26/2020 with segmental dysfunction, EF 65% with bilateralatrial enlargement and moderate to severe mitral annular calcification with mildto moderate tricuspid insufficiency and RVSP estimated to be 34 inability to assess diastolic dysfunction -Not acutely in respiratory distress, will need to monitor BP and respiratory status closely. Follows with cardiology on an outpatient basis, may need to be considered for surgical eval once medically stable #CKD stage IIIb -Appears slightly up overall however most recent value in July was 2.44 withadmission being 2.67 with variable readings prior to that, down trended slightlytoday #Pancytopenia -Chronic but appears to be worse -Worsening likely secondary to underlying infection -Has followed with Dr. Mcintyre in the past -Iron panel consistent with anemia of chronic disease -Liver panel fairly benign #Hypothyroidism -TSH 0.75 -Continue Synthroid #History of ulcerative colitis -Continue Colazal #hx CAD status post CABG and stenting -CABG x2- ZARAGOZA to LAD, Aorto post descending coronary artery to revers SVG 02/12/17; atherectomy to ostial RCA, LINDY to Prox/Mid RCA 04/2009 -Aspirin held due to thrombocytopenia, carvedilol and atorvastatin continued #A-fib -Continue amiodarone and will decrease carvedilol due to soft pressures, not on AC due to history of GI bleed #Alcohol use history -EtOH negative -We will give B12, thiamine, folate supplementation #Falls -Treat present illness -PT/OT #Hx empyema with VATS -In August 2020 at [facility] after CT surgery evaluation -Had resultant pneumothorax at that time #DVT ppx: SCDs given thrombocytopenia Sammie Castaneda MD 11/29/22 1650 <Electronically signed by Sammie Castaneda MD> Cosigner Signature (if applicable): CC: ~ Signed [facility] Work Phone: 1(359) 227-464106-02-[address] [facility] November 29, 2022 6:52am Note Date/Time November 29, 2022 1:54a m [facility] Medical Records Department [address] [place] [address] Emergency Department Summary 11/29/22 MR#: [id number] Acct: [id number] Name: AMAURY BLANK Rep #:[id number] : 1940 82 From: Lupe Joe DO PCP: Dr. Rosa Maria Santacruz MD Status:ADM IN Location: [place] [address] HPI HPI - Fall History of Present Illness Chief Complaint: Fall Detail of Chief Complaint: Falls, weakness, fever Informant: patient Narrative Narrative: Patient presents to the emergency department via EMS from home. Patient apparently fell while going to the bathroom. Patient states that he went to siton the toilet and missed and fell onto the floor. Patient unable to get up afterwards. Patient states that he had a fall 4 nights ago. Patient states that he had some chills while in bed 4 nights ago as well. He describes generalized weakness. He denies cough or vomiting or diarrhea. He denies urinary symptoms. Patient takes aspirin otherwise not anticoagulated. Patient denies striking his head during the fall. He denies injury. He did hurt his left lower extremity and sustained a small laceration to the anterior aspect of his left ankle 4 nights ago. [facility] Medical History Alcohol use Ambulates with cane Atherosclerotic heart disease of [place] coronary artery without angina pectoris Atrial fibrillation Atrial fibrillation and flutter Cardiology follow-up encounter Carotid artery stenosis Dietary restriction Emphysema of lung Essential hypertension Former smoker Hematemesis/vomiting blood High cholesterol History of atrial fibrillation History of cardioversion (~05/09/20) History of coronary artery disease History of echocardiogram History of GI bleed History of right inguinal hernia History of stress test History of transesophageal echocardiography (ROSI) History of umbilical hernia Hx of ulcerative colitis Hypercholesterolemia Hyperlipidemia Hypertension Injury of head and neck 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 Mitral valve insufficiency PAD (peripheral artery disease) Premature atrial contractions Right carotid bruit Shortness of breath on exertion Subclavian artery stenosis, left (~10/15/19) Thrombocytopenia Thrombocytopenia Thyroid disease Ulcerative colitis Ulcerative colitis Upper GI bleed Upper GI bleed Walker as ambulation aid Wears glasses Wears hearing aid Home Medications ferrous sulfate 325 mg (65 mg iron) tablet 325 mg PO DAILY vitamin 05/28/15 [History Last Taken 05/09/20] zinc gluconate 50 mg tablet 50 mg PO DAILY supplement 05/28/15 [History Last Taken 05/09/20] vitamin B complex 1 each PO DAILY vitamin 02/07/16 [History Last Taken 05/09/20] aspirin 81 mg tablet,delayed release 81 mg PO DAILY@0800 heart [facility] 08/29/16 [History Last Taken 04/23/21] levothyroxine 50 mcg tablet 75 mcg PO DAILY thyroid 06/13/20 [History Last Taken Unknown] balsalazide 750 mg capsule (Colazal) 2,250 mg PO BID 05/16/21 [History Last Taken Unknown] atorvastatin 40 mg tablet (Lipitor) 40 mg PO DAILY #90 tabs 03/13/22 [Rx Last Taken Unknown] chlorthalidone 25 mg tablet 25 mg PO DAILY #90 tabs 05/21/22 [Rx Last Taken Unknown] amiodarone 200 mg tablet 200 mg PO DAILY Afib/Flutter #90 tabs 05/27/22 [Rx Last Taken Unknown] amlodipine 10 mg tablet 10 mg PO DAILY #90 tabs 06/20/22 [Rx Last Taken Unknown] carvedilol 6.25 mg tablet (Coreg) 6.25 mg PO BID #180 tabs 10/17/22 [Rx Last Taken Unknown] lisinopril 20 mg tablet 20 mg PO BID #180 tabs 11/26/22 [Rx Last Taken Unknown] hydralazine 50 mg tablet 50 mg PO BID 11/29/22 [History Last Taken Unknown] Allergy/AdvReac Type Severity Reaction Status Date / Time hydrochlorothiazide Allergy Severe Rash Verified 11/29/22 01:38 furosemide [From Lasix] Allergy Severe Verified 11/29/22 01:38 Rash Itchy lovastatin [From Mevacor] Allergy Rash Verified 11/29/22 01:38 amlodipine AdvReac Swelling Verified 11/29/22 01:38 Family History Father CAD (coronary artery disease) Mother Cancer breast Surgical History Aortocoronary bypass status (~02/12/17) History of cardiac catheterization History of hand surgery History of right inguinal hernia repair History of umbilical hernia repair History of vasectomy Hx of CABG Hx of colonoscopy Hx of esophagogastroduodenoscopy Hx of heart bypass surgery S/P right inguinal hernia repair S/P umbilical hernia repair, follow-up exam Status post insertion of drug-eluting stent into right coronary artery for coronary artery disease (~04/2009) Social History adopted: No household members: spouse housing: house number of children: 2 current occupational status: retired Smoking Status: Former smoker Tobacco: How many years used: 50 (stopped about 10 yrs ago) how long ago did patient quit smokin years ago alcohol intake: current alcohol intake frequency: 3 or more drinks per day Alcohol type: beer, wine and hard liquor substance use type: does not use caffeine: Yes Type: coffee Number of servings: 2 ROS ROS ED Review of Systems ROS Unobtainable: other Constitutional Constitutional ED: Reports chills, fever(s) and lethargy; Denies sweats or weight loss Eyes Eyes: Denies blurry vision, change in vision or diplopia ENT ENT ED: Denies rhinorrhea or sore throat Cardiovascular Cardiovascular: Denies chest pain, orthopnea or racing heartbeat Respiratory/Chest Respiratory/Chest: Denies cough, dyspnea, dyspnea on exertion, orthopnea or sputum Gastrointestinal Gastrointestinal: Denies abdominal pain, diarrhea, nausea or vomiting Genitourinary Genitourinary ED: Denies dysuria, hematuria or urinary frequency Musculoskeletal Musculoskeletal: Denies arthralgias, back pain, myalgias or neck pain Integumentary Denies abscess, Abrasions or rash Neurologic Neurologic: Reports weakness; Denies headache(s) Psychiatric Psychiatric: Denies anxiety, depression or suicidal thoughts Endocrine Endocrinology: Denies polydipsia, polyphagia or polyuria Hematologic/Lymphatic Hematologic/Lymphatic: Denies easy bleeding, easy bruising or lymphadenopathy Allergic/Immunologic Allergic/Immunologic ED: Denies mouth swelling, tongue swelling or urticaria EXAM Physical Exam Const Vital Signs: 11/29/22 01:38 11/29/22 01:42 11/29/22 02:42 Temperature 101 F H 100.8 F H Temperature Source Oral Temporal Pulse Rate 69 67 Respiratory Rate 17 16 Respiratory Effort Normal Non-Labored Respiratory Depth Normal Respiratory Pattern Normal Blood Pressure 138/61 H 137/53 H Blood Pressure Mean 86 81 Pulse Ox 94 94 Oxygen Delivery Method Room Air Room Air Room Air 11/29/22 03:00 11/29/22 04:00 Temperature 100.8 F H Temperature Source Temporal Pulse Rate 67 59 L Respiratory Rate 15 16 Respiratory Effort Respiratory Depth Respiratory Pattern Blood Pressure 137/53 H 125/53 H Blood Pressure Mean 81 77 Pulse Ox 95 96 Oxygen Delivery Method Room Air Room Air Positive well nourished and well developed General Appearance ED: well developed and NAD HEENT Reports TM's clear and moist mucous membranes normocephalic and atraumatic; Negative for trauma or tenderness Tympanic Membrane ED: Yes TM's clear Eyes PERRL and EOMs intact bilaterally General Eye ED: Negative for pale conjunctiva or scleral icterus Neck no lymphadenopathy, supple and no JVD General: Negative for tenderness Chest Wall inspection of chest normal and palpation of chest normal Chest: Negative for tenderness Resp normal respiratory effort and clear to auscultation bilaterally Effort and Inspection: Negative for respiratory distress or pain with movement Auscultation: Negative for rhonchi, wheezes or diminished lung sounds Cardio regular rate, regular rhythm, S1 normal heart sound, S2 normal heart sound and no murmurs Peripheral Pulses: pulses 2+ throughout GI normal to inspection, nondistended, normoactive bowel sounds, soft to palpation,non-tender, non-distended and no masses Back/Spine no CVA tenderness and no thoracic nor lumbar tenderness Extremity Extremity Narrative: Patient has multiple bruises to the left lower extremity and small 4 cm laceration to the anterior aspect of the left lower leg that is healing. Do notappreciate any significant cellulitic changes or purulent drainage. Mild soft tissue swelling to the dorsum of the foot. Neurovascularly intact. General Extremety ED: Negative for edema General Extremity: Negative for edema Neuro oriented x3, CN's II-XII intact bilaterally, no sensory deficits noted and gait normal Sensorium / Orientation: awake, alert, oriented to person, oriented to place andoriented to time Motor Exam: strength 5/5 throughout and strength abnormal Psych mental status grossly normal Skin no rashes or lesions noted and no wounds MDM MDM MDM Narrative Medical decision making narrative: Patient presents with generalized weakness and fever. Differential includes infectious etiology versus cardiac etiology given his heart history. Patient had a CBC with differential obtained on arrival showed a white count 2.0 with a hemoglobin of 8.1 platelet count of 55. Chemistries unremarkable. BUN 43 creatinine 2.61. It lactate was normal. Urinalysis normal. Chest x-ray radiology felt may have infiltrate right middle lobe however patient without anysigns or symptoms of pneumonia otherwise. He does have a small wound on his left lower extremity but clinically does not appear infected. Troponin was elevated at 134 but patient denying chest pain or shortness of breath. Case will be discussed with hospitalist to evaluate for admission. Etiology of feveruncertain. Lab Data Attestation: I reviewed the patient's lab results. Labs: Laboratory Results - last 24 hr 11/29/22 11/29/22 11/29/22 02:03 02:03 02:03 WBC 2.0 L RBC 2.31 L Hgb 8.1 L Hct 25.0 L MCV 108.2 H MCH 35.1 H MCHC 32.4 RDW Std Deviation 62.1 H RDW Coeff of Chanel 15.7 H Plt Count 55 L MPV 10.6 Immature Gran % (Auto) 0.000 Neut % (Auto) 82.6 H Lymph % (Auto) 10.4 L Kendall % (Auto) 6.5 Eos % (Auto) 0.0 Baso % (Auto) 0.5 Absolute Neuts (auto) 1.7 L Absolute Lymphs (auto) 0.21 L Nucleated RBC % 0 Diff Path Review May foll Platelet Estimate MOD DEC Anisocytosis 1+ Macrocytosis 2+ Sodium 140 Potassium 4.9 Chloride 111 H Carbon Dioxide 22.0 Anion Gap 7 BUN 43 H Creatinine 2.67 H Estim Creat Clear Calc 23.11 Est GFR (MDRD) Af Amer 30 L Est GFR (MDRD) Non-Af 25 L BUN/Creatinine Ratio 16.1 Glucose 119 H Lactic Acid Calcium 8.3 L Total Bilirubin 0.90 AST 35 ALT 17 Alkaline Phosphatase 68 Troponin I High Sens Total Protein 5.4 L Albumin 3.0 L Globulin 2.4 Albumin/Globulin Ratio 1.2 Urine Color Urine Clarity Urine pH Ur Specific [place] Urine Protein Urine Glucose (UA) Urine Ketones Urine Occult Blood Urine Nitrite Urine Bilirubin Urine Urobilinogen Ur Leukocyte Esterase Urine RBC Urine WBC Ur Squamous Epith Cells Urine Bacteria Urine Mucus Ethyl Alcohol < 3.0 11/29/22 11/29/22 11/29/22 02:03 02:03 02:54 WBC RBC Hgb Hct MCV MCH MCHC RDW Std Deviation RDW Coeff of Chanel Plt Count MPV Immature Gran % (Auto) Neut % (Auto) Lymph % (Auto) Kend[place] % (Auto) Eos % (Auto) Baso % (Auto) Absolute Neuts (auto) Absolute Lymphs (auto) Nucleated RBC % Diff Path Review Platelet Estimate Anisocytosis Macrocytosis Sodium Potassium Chloride Carbon Dioxide Anion Gap BUN Creatinine Estim Creat Clear Calc Est GFR (MDRD) Af Amer Est GFR (MDRD) Non-Af BUN/Creatinine Ratio Glucose Lactic Acid 1.7 Calcium Total Bilirubin AST ALT Alkaline Phosphatase Troponin I High Sens 134 H* Total Protein Albumin Globulin Albumin/Globulin Ratio Urine Color Yellow Urine Clarity Clear Urine pH 5.0 Ur Specific [place] 1.015 Urine Protein 100 H Urine Glucose (UA) Normal Urine Ketones Negative Urine Occult Blood Negative Urine Nitrite Negative Urine Bilirubin Negative Urine Urobilinogen Normal Ur Leukocyte Esterase Negative Urine RBC 0 SEEN Urine WBC 0 SEEN Ur Squamous Epith Cells 0 SEEN Urine Bacteria 1+ Urine Mucus 0 SEEN Ethyl Alcohol Radiography Diagnostic Testing: Clinical Impression(s) from Imaging Studies Chest X-Ray 11/29/22 01:50 IMPRESSION: Right infrahilar opacity, concerning for infection. Electronically Signed: Warren Haro MD at 2:53 EDT , Foot X-Ray 11/29/22 01:57 IMPRESSION: No acute fracture or dislocation. Soft tissue swelling in the dorsum of the foot. Electronically Signed: Warren Haro MD at 2:47 EDT , 1 view chest x-ray obtained interpreted by myself as increased markings right lower lobe which I suspect may be atelectasis versus infiltrate. Allergy was inagreement felt there was a right infrahilar opacity concerning for infection. Three-view x-rays of left foot obtained interpreted by myself as no acute fractures or dislocations. Radiology in agreement. EKG Initial EKG: Attestation: I personally reviewed and interpreted this EKG as follows: Comments: Sinus rhythm with rate of 64 bpm with first-degree AV block and no acute ST segment changes Discharge Plan Dx/Rx/DC Orders Clinical Impression: Fever, Pancytopenia, Elevated troponin, Generalized weakness, Chronic kidney insufficiency Disposition Disposition: Acute Care Hospital [facility] What to do if you have Problems For any increased pain, shortness of breath, bleeding, nausea or vomiting, chestpain, or any unexpected problems, contact your Primary Care Provider. Call [facility] ([phone]) or report to the closest Emergency Room. Call 911 if necessary. 11/29/2252 <Electronically signed by Lupe Joe DO> Cosigner Signature (if applicable): CC: Dr. Rosa Maria Santacruz MD ~ Signed [facility] Work Phone: [phone] 902-692006-02-2023 History and physical note Author Dr. Alexander [facility] November 29, 2022 4:54am Note Date/Time November 29, 2022 4:47a m [facility] Medical Records Department [address] [place] [address] H&P Exam - Hospitalist 11/29/22 0439 MR#: [id number] Acct: [id number] Name: AMAURY BLANK Rep #:[id number] : 1940 82 From: Jakob Alexander DO PCP: Dr. Rosa Maria Santacruz MD Status:ADM IN Location: [facility] [id number] HPI - General General Date of Admission: 11/29/22 Date of Service: 11/29/22 Chief Complaint: fall HPI Narrative AMAURY BLANK, is a 82 M who presents with fall. Patient was going to the bathroom and when he was trying to sit down on the toilet he fell landing. Patient did not lose consciousness. He was unable to get himself up and was sent to the hospital. Patient states that he has been feeling okay not feeling rundown but did have a fall on Friday where he missed took something as being his night table and when he tried to grab it fell forward. Was able to get himself up at that time. They did a work-up in the emergency room this morning and patient was found to be pancytopenic which is actually not a new phenomenon but worse than previous, his creatinine was elevated from his baseline at 2.6 and a troponin was checked and was elevated at 134. Patient denies any chest pain. Urinalysis was performed and was unremarkable. Chest x- ray was concerning for a right lower lobe infiltrate patient was ordered IV fluids in the emergency room. The hospital service was contacted for further admission. [facility] Medical History Alcohol use Ambulates with cane Atherosclerotic heart disease of [place] coronary artery without angina pectoris Atrial fibrillation Atrial fibrillation and flutter Cardiology follow-up encounter Carotid artery stenosis Dietary restriction Emphysema of lung Essential hypertension Former smoker Hematemesis/vomiting blood High cholesterol History of atrial fibrillation History of cardioversion (~05/09/20) History of coronary artery disease History of echocardiogram History of GI bleed History of right inguinal hernia History of stress test History of transesophageal echocardiography (ROSI) History of umbilical hernia Hx of ulcerative colitis Hypercholesterolemia Hyperlipidemia Hypertension Injury 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 and neck 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 Mitral valve insufficiency PAD (peripheral artery disease) Premature atrial contractions Right carotid bruit Shortness of breath on exertion Subclavian artery stenosis, left (~10/15/19) Thrombocytopenia Thrombocytopenia Thyroid disease Ulcerative colitis Ulcerative colitis Upper GI bleed Upper GI bleed Walker as ambulation aid Wears glasses Wears hearing aid Home Medications ferrous sulfate 325 mg (65 mg iron) tablet 325 mg PO DAILY vitamin 05/28/15 [History Last Taken 05/09/20] zinc gluconate 50 mg tablet 50 mg PO DAILY supplement 05/28/15 [History Last Taken 05/09/20] vitamin B complex 1 each PO DAILY vitamin 02/07/16 [History Last Taken 05/09/20] aspirin 81 mg tablet,delayed release 81 mg PO DAILY@0800 heart health 08/29/16 [History Last Taken 04/23/21] levothyroxine 50 mcg tablet 75 mcg PO DAILY thyroid 06/13/20 [History Last Taken Unknown] balsalazide 750 mg capsule (Colazal) 2,250 mg PO BID 05/16/21 [History Last Taken Unknown] atorvastatin 40 mg tablet (Lipitor) 40 mg PO DAILY #90 tabs 03/13/22 [Rx Last Taken Unknown] chlorthalidone 25 mg tablet 25 mg PO DAILY #90 tabs 05/21/22 [Rx Last Taken Unknown] amiodarone 200 mg tablet 200 mg PO DAILY Afib/Flutter #90 tabs 05/27/22 [Rx Last Taken Unknown] amlodipine 10 mg tablet 10 mg PO DAILY #90 tabs 06/20/22 [Rx Last Taken Unknown] carvedilol 6.25 mg tablet (Coreg) 6.25 mg PO BID #180 tabs 10/17/22 [Rx Last Taken Unknown] lisinopril 20 mg tablet 20 mg PO BID #180 tabs 11/26/22 [Rx Last Taken Unknown] hydralazine 50 mg tablet 50 mg PO BID 11/29/22 [History Last Taken Unknown] Allergy/AdvReac Type Severity Reaction Status Date / Time hydrochlorothiazide Allergy Severe Rash Verified 11/29/22 01:38 furosemide [From Lasix] Allergy Severe Verified 11/29/22 01:38 Rash Itchy lovastatin [From Mevacor] Allergy Rash Verified 11/29/22 01:38 amlodipine AdvReac Swelling Verified 11/29/22 01:38 Family History Father CAD (coronary artery disease) Mother Cancer breast Surgical History Aortocoronary bypass status (~02/12/17) History of cardiac catheterization History of hand surgery History of right inguinal hernia repair History of umbilical hernia repair History of vasectomy Hx of CABG Hx of colonoscopy Hx of esophagogastroduodenoscopy Hx of heart bypass surgery S/P right inguinal hernia repair S/P umbilical hernia repair, follow-up exam Status post insertion of drug-eluting stent into right coronary artery for coronary artery disease (~04/2009) Social History adopted: No household members: spouse housing: house number of children: 2 current occupational status: retired Smoking Status: Former smoker Tobacco: How many years used: 50 (stopped about 10 yrs ago) how long ago did patient quit smokin years ago alcohol intake: current alcohol intake frequency: 3 or more drinks per day Alcohol type: beer, wine and hard liquor substance use type: does not use caffeine: Yes Type: coffee Number of servings: 2 ROS ROS Narrative Chronic presbycusis and currently does not have his hearing aids in. Denies anychanges to his voice. States that he has been eating and drinking well. Deniesany fever or chills. Did have some nausea when this event occurred. All reviewof systems were negative except as mentioned above in the history of present illness and the other review of systems. Vital Signs Vital Signs Vital Signs: 11/29/22 01:38 11/29/22 01:42 11/29/22 02:42 Temperature 38.3 C H 38.2 C H Temperature Source Oral Temporal Pulse Rate 69 67 Respiratory Rate 17 16 Respiratory Effort Normal Non-Labored Respiratory Depth Normal Respiratory Pattern Normal Blood Pressure 138/61 H 137/53 H Blood Pressure Mean 86 81 Pulse Ox 94 94 Oxygen Delivery Method Room Air Room Air Room Air 11/29/22 03:00 11/29/22 04:00 Temperature 38.2 C H Temperature Source Temporal Pulse Rate 67 59 L Respiratory Rate 15 16 Respiratory Effort Respiratory Depth Respiratory Pattern Blood Pressure 137/53 H 125/53 H Blood Pressure Mean 81 77 Pulse Ox 95 96 Oxygen Delivery Method Room Air Room Air Weight Weight: 81.8 kg Body Mass Index (BMI) 25.1 Physical Exam Const alert and no apparent distress Constitutional Narrative: Hard of hearing. Voice is monotone and sometimes difficult to understand at times. When he hears questions, he answers them appropriately. HEENT normocephalic and head/scalp atraumatic HEENT Narrative: Mucous membranes dry Eyes EOMs intact bilaterally Eyes Narrative: No icterus Resp normal respiratory effort, no retractions, no use of accessory muscles and clearto auscultation bilaterally Cardio regular rate, regular rhythm, S1 normal heart sound and S2 normal heart sound GI normal to inspection, nondistended, normoactive bowel sounds, soft to palpation,non-tender and non-distended Extremity Extremity Narrative: Slight edema of the left lower extremity. Skin Skin Narrative: Skin tears noted on the left anterior hodgson. Neuro moves all extremities Sensorium / Orientation: awake and alert Psych affect normal Results Lab / Micro Data Result Diagrams: 11/29/22 02:03 11/29/22 02:03 Labs: Laboratory Results - last 24 hr 11/29/22 02:03: WBC 2.0 L, RBC 2.31 L, Hgb 8.1 L, Hct 25.0 L, MCV 108.2 H, MCH 35.1 H, MCHC 32.4, RDW Std Deviation 62.1 H, RDW Coeff of Chanel 15.7 H, Plt Count 55 L, MPV 10.6, Immature Gran % (Auto) 0.000, Neut % (Auto) 82.6 H, Lymph % (Auto) 10.4 L, [place] % (Auto) 6.5, Eos % (Auto) 0.0, Baso % (Auto) 0.5, Absolute Neuts (auto) 1.7 L, Absolute Lymphs (auto) 0.21 L, Nucleated RBC % 0, Diff Path Review May foll, Platelet Estimate MOD DEC, Anisocytosis 1+, Macrocytosis 2+ 11/29/22 02:03: Sodium 140, Potassium 4.9, Chloride 111 H, Carbon Dioxide 22.0, Anion Gap 7, BUN 43 H, Creatinine 2.67 H, Estim Creat Clear Calc 23.11, Est GFR (MDRD) Af Amer 30 L, Est GFR (MDRD) Non-Af 25 L, BUN/Creatinine Ratio 16.1, Glucose 119 H, Calcium 8.3 L, Total Bilirubin 0.90, AST 35, ALT 17, Alkaline Phosphatase 68, Total Protein 5.4 L, Albumin 3.0 L, Globulin 2.4, Albumin/Globulin Ratio 1.2 11/29/22 02:03: Ethyl Alcohol < 3.0 11/29/22 02:03: Lactic Acid 1.7 11/29/22 02:03: Troponin I High Sens 134 H* 11/29/22 02:54: Urine Color Yellow, Urine Clarity Clear, Urine pH 5.0, Ur Specific [place] 1.015, Urine Protein 100 H, Urine Glucose (UA) Normal, Urine Ketones Negative, Urine Occult Blood Negative, Urine Nitrite Negative, Urine Bilirubin Negative, Urine Urobilinogen Normal, Ur Leukocyte Esterase Negative, Urine RBC 0 SEEN, Urine WBC 0 SEEN, Ur Squamous Epith Cells 0 SEEN, Urine Bacteria 1+, Urine Mucus 0 SEEN Micro: Microbiology 11/29/22 02:06 Nasal Secretion SARS-CoV-2 & FLU Antigen (Rapid) - Final Radiology Impression Chest X-Ray 11/29/22 01:50 IMPRESSION: Right infrahilar opacity, concerning for infection. Electronically Signed: Warren Haro MD at 2:53 EDT , Foot X-Ray 11/29/22 01:57 IMPRESSION: No acute fracture or dislocation. Soft tissue swelling in the dorsum of the foot. Electronically Signed: Warren Haro MD at 2:47 EDT , Assessment & Plan Assessment/Plan (1) Pneumonia: PLAN: Suspected pneumococcal Chest x-ray personally reviewed and shows a patchy right lower lobe infiltrate. Not present on previous chest x-rays from 2021. Plan: Pulmonary toilet, antibiotics with ceftriaxone and azithromycin, check urinary antigens for Streptococcus and Legionella, check sputum culture (2) Elevated troponin: PLAN: Unclear significance. Patient was not having any chest pain and this was not a syncopal episode. Unfortunately was checked and will follow that up with serial troponins as well as an echocardiogram. I would suspect there is at least some component that is skewed due to his chronic kidney disease (3) Pancytopenia: PLAN: Chronic but does appear to be worse. We will continue to monitor. With his anemia, we will check an iron, ferritin, total iron-binding capacity, B12, TSH and folate. No need to transfuse at this time. (4) Generalized weakness: PLAN: Patient had 2 falls. In the interim due to syncope but patient was unableto get up today. PT OT evaluate and treat Cannot rule out need for retirement facility upon discharge. (5) Skin tear: PLAN: On left hodgson: Status post fall. Consult wound care (6) Acute renal insufficiency: PLAN: On CKD 3B/CKD 4 Creatinine is up from his baseline Clinically appears dry And will give fluids PLAN: Plan Chronic conditions * Coronary artery disease: Status post CABG and stents. Holding the patient's aspirin given the thrombocytopenia. Continue with carvedilol * Hypertension: Continue with amlodipine and lisinopril * A-fib: Continue with amiodarone. Previously was not on anticoagulation given history of GI bleed. * Hyperlipidemia: Continue with statin * Peripheral arterial disease: Follow-up with vascular surgery per routine VTE prophylaxis: Avoiding chemical prophylaxis given thrombocytopenia. SCDs CODE STATUS: Addressed with the patient. Patient wishes to be DNR Comfort Care arrest no intubation. He stated that he did not want heroics. Disposition: To be determined. Given the patient's multiple acute issues as well as his multiple profound chronic medical conditions, anticipate this patient being hospitalized for 48 to 72 hours. Charges/Coding Visit Charges Inpatient E&M: 13499 Init Hosp L3 11/29/22 0454 <Electronically signed by Jakob Alexander DO> Cosigner Signature (if applicable): CC: Dr. Rosa Maria Santacruz MD; Dr. Jakob Alexander DO~ Signed [facility] Work Phone: 1(526) 871-366104-10-2021 NoteDischarge Summary Amaury Blank : 1940 ADMIT DATE: 10/02/2020 DISCHARGE DATE: 10/07/2020 PRIMARY CARE PHYSICIAN: No primary care provider on file. VISIT STATUS: Inpatient [101] CODE STATUS: Full Code DISCHARGE DIAGNOSES: Active Problems: Atrial fibrillation (HCC) Resolved Problems: * No resolved hospital problems. * Atrial flutter Hydropneumothorax Recent Empyema/VATS CAD - stable MYRON on CKD3 - creatinine plateaued Stage 3 pressure injury right buttock - POA BMI Classification: Normal Weight (BMI 18.5-24.9) Body mass index is 24.6 kg/m?. HOSPITAL COURSE: Amaury Blank was admitted to the hospital with the following pertinent HPI: The patient is a 80 y.o. male who presented with CC of SOB, dyspnea with exertion. Hx significant for CABG x2 - ZARAGOZA to LAD 02/12/17, paroxysmal Atrial flutter/fibrillation. Recent admission earlier this month for empyema/right pleural effusion. Thoracentesis performed 09/11/20, documented removal of 2050mL from right pleural space. Per Pt, available documentation Pt showed marked improvement and was DC'd on 09/21. Since that time Pt states he has felt a lot better overall. Of concern to him is that over the past 1-2 weeks he has been becoming increasingly SOB with almost any physical exertion, unable to climb a flight of stairs without having to pause and rest to regain his strength. Also of concern is that his lower extremities have become grossly swollen to the point where he has started weeping serous fluid from his legs and heels. Seen by women specialist 09/07/20 - per documentation was instructed to begin Edecrin 50mg qD based on his known allergy to Lasix. Pt currently asymptomatic while resting in bed, SpO2 >90% on room air at present time ? - On last admission was noted to have Pneumonia, currently has PICC line placed w/ daily Ceftriaxone to run through 10/04/20 ? - CXR performed at [place] [facility] 10/02/20: New right sided pneumothorax without mediastinal shift. Pneumothorax is approximately 20% of the right hemithorax. There is associated right subcutaneous emphysema new since the previous study as well ? - Echocardiogram 09/26/20: Segmental dysfunction with preserved ejection fraction (see wall motion). The estimated ejection fraction is 65 %. Sigmoid septum. The left atrium is severely enlarged. The right atrium is mildly enlarged. There is moderate to severe mitral annular calcification. Moderate focal mitral valve calcification of the anterior leaflet. Mild (1+) mitral valve insufficiency. Mild to moderate (1-2+) eccentric tricuspid valve insufficiency. Right ventricular systolic pressure estimated to be 34 mmHg. Unable to assess diastolic dysfunction. He was admitted to medical floor. CTS, personal lines sales rep, harvest worker fruit, ID consulted. Underwent chest tube placement. Antibiotic from prior admission continued and completed course. Patient did better, chest tube removed, and he feels much better, breathing well, wanted to go home. Renal function worsened to 2.4 from baseline and plateued, 2.13 at the time of discharge. Was diuresed with ethacrynic acid as patient is allergic to lasix and bumex. Probnp is trending down from 14k to 7.7k. Noted to have stage 3 small wound in right buttock, wound care was consulted, continued wound care. Underwent ROSI guided DCC for atrial flutter, HR stable post procedure. Eliquis was increased to 5 mg bid by personal lines sales rep, recommended to continue that despite renal function for now. Lisinopril stopped for now for renal function, may be able to restart when renal function is back to baseline. outpt cxr, BMP and CBC recommended. Outpatient follow up recommended. Discharged to home in stable condition with a plan for home care. CONSULTANTS: IP CONSULT TO HEART FAILURE NURSE/COORDINATOR IP CONSULT TO DIETITIAN IP CONSULT TO CARDIOTHORACIC SURGERY IP CONSULT TO CARDIOLOGY IP WOUND CARE NURSE CONSULT TO EVAL IP CONSULT TO DIETITIAN IP CONSULT TO INFECTIOUS DISEASES IP CONSULT TO NEPHROLOGY IP CONSULT TO HOME CARE NEEDS MEDICATION CHANGES: Eliquis increased. Lisinopril held. RECOMMENDED NEXT STEPS: bloodwork and outpt follow up. PHYSICAL EXAM: Vital signs: BP (!) 109/57 Pulse 91 Temp 97.5 ?F (36.4 ?C) (Temporal) Resp 18 Ht 5' 11 (1.803 m) Comment: per chart Wt 176 lb 6.4 oz (80 kg) SpO2 98% BMI 24.60 kg/m? General appearance: Awake, no acute distress noted HEENT: Eyes: No scleral icterus, pallor- Oral: Tongue is semi-moist Cardiovascular: S1S2 heard, RRR Respiratory: Right chest tube has been removed. Normal effort, breath sounds much improved, no rhonchi or crackles noted. Abdomen: Soft, non-tender, non-distended with normal bowel sounds. Musculoskeletal: Pedal edema improving, no obvious deformities seen Skin: right buttock stage 3 pressure injury, otherwise no visible acute rashes or lesions. Neuro: intact, belgica (more content not included)...[facility]03-25-2021 NoteDischarge Summary Amaury Blank : 1940 Age: 80 y.o. ADMIT DATE: 09/11/2020 DISCHARGE DATE: 09/21/2020 DISCHARGING SURGEON: Kassandra Davidson MD Office Number: [phone] PRIMARY CARE PHYSICIAN: No primary care provider on file. VISIT STATUS: Admission CODE STATUS: Limited DISCHARGE DIAGNOSES: 1. Right-sided empyema 2. Community-acquired pneumonia 3. MYRON 4. Hx HTN 5. Hx CAD 6. Hx HFpEF 7. Hx Afib 8. Hx UC 9. Overweight Body mass index is 26.44 kg/m?. BMI Classification: Overweight (BMI 25.0-29.9) HOSPITAL COURSE: Amaury Blank is a 80-year-old male admitted 09/11/20 with a right-sided empyema. On 09/12/20, he underwent CT-guided pigtail catheter placement by interventional radiology. Following pigtail catheter placement, tPA was administered. Repeat CT imaging demonstrated improvement in his right pleural effusion. However, due to persistently elevated pigtail catheter output and concern for lung entrapment, he was taken to the OR for right VATS with pleural biopsy and washout on 09/19/20. He was admitted to [facility]U for postoperative management. Postoperatively, his pain control gradually improved. He was transitioned from IV to oral pain medication. He was weaned off supplemental oxygen. Due to CXR stability, his chest tubes were removed. ID recommended continuation of antibiotics through 10/04/20 at discharge. He underwent PICC placement on 09/19/20 to facilitate antibiotic therapy at discharge. Due to clinical improvement, he was deemed stable for discharge home on 09/21/20. DISCHARGE MEDICATIONS: Amaury Blank Home Medication Instructions DARIUS:[id number] Printed on:09/21/20 3014 Medication Information amiodarone (CORDARONE) 200 MG tablet Take 200 mg by mouth daily apixaban (ELIQUIS) 2.5 MG TABS tablet Take 1 tablet by mouth 2 times daily aspirin 81 MG EC tablet Take 81 mg by mouth daily atorvastatin (LIPITOR) 40 MG tablet Take 40 mg by mouth daily balsalazide (COLAZAL) 750 MG capsule Take 750 mg by mouth daily ferrous sulfate (IRON 325) 325 (65 Fe) MG tablet Take 325 mg by mouth daily (with breakfast) levothyroxine (SYNTHROID) 50 MCG tablet Take 50 mcg by mouth Daily lisinopril (PRINIVIL;ZESTRIL) 20 MG tablet Take 20 mg by mouth daily metoprolol tartrate (LOPRESSOR) 25 MG tablet Take 25 mg by mouth daily metroNIDAZOLE (FLAGYL) 500 MG tablet Take 1 tablet by mouth 3 times daily for 13 days oxyCODONE-acetaminophen (PERCOCET) 5-325 MG per tablet Take 1 tablet by mouth every 6 hours as needed for Pain for up to 7 days. Intended supply: 7 days. Take lowest dose possible to manage pain pantoprazole (PROTONIX) 40 MG tablet Take 40 mg by mouth daily polyethylene glycol (GLYCOLAX) 17 GM/SCOOP powder Take 17 g by mouth daily as needed (Constipation) vitamin B-12 (CYANOCOBALAMIN) 500 MCG tablet Take 500 mcg by mouth daily zinc gluconate 50 MG tablet Take 50 mg by mouth daily DIET: DIET GENERAL; ACTIVITY: As tolerated COMPLEXITY OF FOLLOW UP: [] Follow-up CT surgery 1 week [x] Follow-up CT surgery 2 week DISPOSITION: Home A copy of the discharge instructions which included the medications at the time of discharge, follow-up appointments, phone numbers to call with questions, activity, restrictions, and limitations was provided to the patient or their family. We greatly appreciate the opportunity to participate in the care of your patient. If you have any additional questions or concerns regarding any aspects of their care or management please do not hesitate to contact us. SIGNED: Kylah Liz, [facility]03-16-2021 [facility] Department of Radiology Post Procedure Progress Note Pre-Procedure Diagnosis: Emypema. Procedure Performed: CT-guided right chest drain placement. Anesthesia: Local Conscious Sedation: 50 micrograms fentanyl iv total. Sedation Time: 30 minutes Findings: Large right-sided effusion/emyema. Outcomes: Successful placement of a 12 Armenian drain. Specimens: 60+ mL frankly purulent iverson fluid sent for C & S. Estimated Blood Loss: Minimal Immediate Complications: None Final report to follow in Radiology Results. [facility] Author Josephine Castillo [facility] June 25, 2023 5:07pm Note Date/Time June 25, 2023 5:07pm [facility] Medical Records Department [address] [place] [address] Counseling Note - Pharmacy 06/25/23 1705 MR#: [id number] Acct: [id number] Name: AMAURY BLANK Rep #:[id number] : 1940 82 From: Josephine Castillo PCP: Dr. Rosa Maria Santacruz MD Status:ADM IN Y Location: [place] [address] Pharmacy [facility] Service has performed discharge medication reconciliation and counseling for this patient. Instructed patient that per hospitalist note, do not resume aspirin unless instructed to do so by PCP. 1. BUMETANIDE 1MG PO DAILY 2. PANTOPRAZOLE 40MG PO BID The patient's discharge medication list was reviewed for discrepancies and discrepancies were resolved. The patient was counseled on the following discharge medications and changes in medications for homegoing were reviewed. The Reason for Use, instructions for use, and potential side effects were reviewed for all new medications. The patient's questions regarding all of their medications were answered. The patient was able to verbally demonstrate an understanding of their dischargemedications. Medications at Discharge Home Medications ferrous sulfate 325 mg (65 mg iron) tablet 325 mg PO DAILY vitamin 05/28/15 vitamin B complex 1 each PO DAILY vitamin 02/07/16 levothyroxine 50 mcg tablet 75 mcg PO DAILY thyroid 06/13/20 acetaminophen 500 mg tablet 1,000 mg (2 x 500 mg) PO Q6H PRN PRN Pain Score 1-5 #0 tabs 12/19/22 aspirin 81 mg tablet,delayed release 81 mg PO DAILY 04/14/23 atorvastatin 40 mg tablet (Lipitor) 40 mg PO DAILY cholesterol #90 tabs 04/14/23 balsalazide 750 mg capsule (Colazal) 2,250 mg PO BID 04/14/23 hydralazine 50 mg tablet 50 mg PO BID 04/14/23 amlodipine 10 mg tablet 10 mg PO DAILY #90 tabs 05/20/23 lisinopril 20 mg tablet 20 mg PO DAILY #90 tabs 05/21/23 bumetanide 1 mg tablet 1 mg PO DAILY #30 tabs 06/25/23 pantoprazole 40 mg tablet,delayed release 40 mg PO BID #60 tabs 06/25/23 06/25/237 <Electronically signed by Josephine Castillo> Date _ Josephine Castillo Cosigner Signature (if applicable): Date CC: ~ Signed [facility] Work Phone: Consult note Author Dima Mancilla [facility] Note Date/Time December 27, 2024 12:1 4pm [facility] Medical Records Department [address] [place] [id number] Anesthesia Postop Eval I 12/27/24 1213 MR#: [id number] Acct: [id number] Name: AMAURY BLANK Rep #:[id number] : 1940 84 From: Dima GRAJEDA PCP: Dr. Jakob Jiménez MD Status:[facility] Y Race: C Location: [place] [address] Anesthesia: Postop Eval I Current Vital Signs Temperature: 36 F Pulse Rate: 77 Blood Pressure: 111/61 Respiratory Rate: 14 Pulse Ox: 97 Assessment Airway patent: Yes Spontaneous unlabored respirations: Yes nausea: No Vomiting: No Anesthesia Complication: No Fluid Hydration Crystalloid volume administer (ml): 800 Total IV fluid infused: 800 Progress Note Anesthesia document: Postop Eval 1 completed: Yes 12/27/24 1214 <Electronically signed by Dima Mancilla CRNA> Date _ Dima Mancilla CELL POURER Cosigner Signature: Date CC: ~ Signed [facility] Work Phone: Discharge summary Author Forrest Umaña [facility] Note Date/Time December 27, 2024 11:[address] [facility] Medical Records Department [address] [place] [address] Instructions for Home/Discharge Instructions 12/27/24 1148 MR#: [id number] Acct: [id number] Name: AMAURY BLANK Rep #:[id number] : 1940 84 From: Forrest chan MD PCP: Dr. Jakbo Jiménez MD Status:[facility] Discharge Instructions Procedure Hernia Diet Discharge Diet: Light diet - advance as tolerated Activity Discharge Activity: May Not Drive (for 2-3 days or while taking narcotic pain meds.) and May Shower (with the bandage in place 1-2 days after surgery.) Lifting Restrictions: 20 pounds for 6 weeks. Additional Activity Instructions:: Climbing stairs is fine, walking is encouraged. Sitting in bed may be uncomfortable. Sitting up using your lateral muscles (sitting up sideways) is usually more comfortable. Do not drive, work heavy equipment of sign legal documents for 24 hours. If your hernia repair was an inguinal repair, you may have scrotal swelling, an ice pack and/or athletic support can provide more comfort. Pain medications may cause nausea, you should typically eat light foods as you take your pain medications. Pain medications may also cause constipation. If you have difficulty with this, discuss with your doctor. Alternate ibuprofen and Tylenol for pain control, oxycodone for breakthrough pain Resume aspirin Friday Dressing / Incision Call your doctor if your incision/area has: Continuous Slow Oozing, Sudden Increased Bleeding, Increased Pain/ Swelling, Increased Redness and Foul Smelling Discharge Call your doctor if you observe: Fever of 101 or Higher Suture Line Care: Avoid Pulling/Pushing and Avoid Pinching/Bending Remove Dressing in: 2 days (Remove clear bandages in 2 days, remove Steri- Stripsin 7 to 10 days.) Cleanse incision/area with: Soap & Water Follow Up Care Please Follow Up With: Forrest Umaña MD When: Please call to schedule 2 week follow up appointment. [phone] Test Results: Test results from this visit will be discussed in further detail at your follow- up appointment, if applicable. Discharge Plan Admission Attending Provider: Forrest Umaña Primary Care Provider: Jakob Jiménez Instructions Print Language: Danish Discharge Orders/Prescriptions Prescriptions: New oxycodone 5 mg Tablet 5 - 10 mg PO Q4H PRN PRN (Reason: Pain Score 4-10) 5 Days Qty: 10 0RF No Action aspirin 81 mg tablet,delayed release (DR/EC) 81 mg PO MO zinc acetate 50 mg (zinc) capsule 50 mg PO DAILY furosemide [Lasix] 20 mg tablet 20 mg PO QAM ferrous sulfate 325 MG tablet 325 mg PO DAILY Patient Comments: Iron supplement vitamin B complex 1 EACH capsule 1 each PO DAILY Patient Comments: Vitamin supplement atorvastatin [Lipitor] 40 mg tablet 40 mg PO DAILY Qty: 90 3RF hydralazine 50 mg tablet 100 mg PO BID Qty: 180 3RF amlodipine 10 mg tablet 10 mg PO DAILY Qty: 90 3RF lisinopril 20 mg tablet 20 mg PO DAILY Qty: 90 3RF levothyroxine 50 mcg tablet 50 mcg PO DAILY Other Ambulatory Orders: 12 Lead EKG (Routine) Timeframe: 20241216 Location: None Selected Ordered By: Dr. River Hamm Referrals / Follow Up: Jakob Jiménez MD [Primary Care Provider] - Disposition Disposition (needs filled in before D/C Order can be placed): Home, Self Care 12/27/24 1150<Electronically signed by Forrest Umaña MD>Forrest Umaña MD CC: Dr. Jakob Jiménez MD ~ Signed [facility] Work Phone: Evaluation note* Diagnosis Onset Date Resolution Status Anemia chronic Chronic kidney disease (CKD) chronic Pancytopenia chronic [facility] Work Phone: Evaluation note* Diagnosis Onset Date Resolution Status Mitral valve insufficiency a cute PAD (peripheral artery disease) acute Atherosclerotic heart diseas e of [place] coronary artery without angina pectoris chronic Atrial fibrillation and flutter chronic Essential hypertension chron ic Hyperlipidemia chronic [id number] 2008 chronic 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, resolved Mitral valve insufficiency a cute PAD (peripheral artery disease) acute Atherosclerotic heart diseas e of [place] coronary artery without angina pectoris chronic Atrial fibrillation and flutter chronic Essential hypertension chron ic Hyperlipidemia chronic [id number] 2008 chronic 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, resolved [facility] Work Phone: Evaluation note* Diagnosis Onset Date Resolution Status Mitral valve insufficiency a cute PAD (peripheral artery disease) acute Atherosclerotic heart diseas e of [place] coronary artery without angina pectoris chronic Atrial fibrillation and flutter chronic Essential hypertension chron ic Hyperlipidemia chronic [facility] Work Phone: Evaluation note* Diagnosis Onset Date Resolution Status Mitral valve insufficiency a cute PAD (peripheral artery disease) acute Atherosclerotic heart diseas e of [place] coronary artery without angina pectoris chronic Atrial fibrillation and flutter chronic Essential hypertension chron ic Hyperlipidemia chronic Acute renal insufficiency ac telida Elevated troponin acute Fever acute Generalized weakness acute Pancytopenia acute Pneumonia acute Skin tear acute Chronic kidney insufficiency chronic [facility] Work Phone: Evaluation note* Diagnosis Onset Date Resolution Status Mitral valve insufficiency a cute PAD (peripheral artery disease) acute Atherosclerotic heart diseas e of [place] coronary artery without angina pectoris chronic Atrial fibrillation and flutter chronic Essential hypertension chron ic Hyperlipidemia chronic Acute renal insufficiency ac telida Bacteremia acute Elevated troponin acute Fever acute Generalized weakness acute Pancytopenia acute Pneumonia acute Skin tear acute Atrial fibrillation chronic Chronic kidney disease (CKD) chronic Chronic kidney insufficiency chronic [facility] Work Phone: Evaluation note* Diagnosis Onset Date Resolution Status Mitral valve insufficiency a cute PAD (peripheral artery disease) acute Atherosclerotic heart diseas e of [place] coronary artery without angina pectoris chronic Atrial fibrillation and flutter chronic Essential hypertension chron ic Hyperlipidemia chronic Acute renal insufficiency ac telida Pancytopenia acute Skin tear acute Atrial fibrillation chronic Chronic kidney insufficiency chronic Bacteremia resolved Generalized weakness resolve d Pneumonia resolved Acute diastolic (congestive) heart failure acute Acute kidney injury acute Alcohol dependence acute Atrial fibrillation acute Coronary artery disease acut e Debility acute Hyperlipidemia acute Hypothyroidism acute Iron deficiency anemia acute Pancytopenia acute Ulcerative colitis acute Hypertension chronic Bacteremia resolved Pneumonia resolved [facility] Work Phone: Evaluation note* Diagnosis Onset Date Resolution Status Mitral valve insufficiency a cute PAD (peripheral artery disease) acute Atherosclerotic heart diseas e of [place] coronary artery without angina pectoris chronic Atrial fibrillation and flutter chronic Essential hypertension chron ic Hyperlipidemia chronic Acute renal insufficiency ac telida Pancytopenia acute Skin tear acute Atrial fibrillation chronic Chronic kidney insufficiency chronic Bacteremia resolved Generalized weakness resolve d Pneumonia resolved Acute diastolic (congestive) heart failure acute Acute kidney injury acute Acute renal insufficiency ac telida Alcohol dependence acute Anemia acute Atrial fibrillation chronic Coronary artery disease acut e Debility acute Hyperlipidemia acute Hypothyroidism acute Iron deficiency anemia acute Pancytopenia acute Ulcerative colitis acute Hypertension chronic Bacteremia resolved Pneumonia resolved [facility] Work Phone: Evaluation note* Diagnosis Onset Date Resolution Status Mitral valve insufficiency a cute PAD (peripheral artery disease) acute Atherosclerotic heart diseas e of [place] coronary artery without angina pectoris chronic Atrial fibrillation and flutter chronic Essential hypertension chron ic Hyperlipidemia chronic Skin tear acute Atrial fibrillation chronic Chronic kidney insufficiency chronic Acute renal insufficiency re solved Bacteremia resolved Generalized weakness resolve d Pancytopenia resolved Pneumonia resolved Acute kidney injury acute Alcohol dependence acute Anemia acute Atrial fibrillation chronic Coronary artery disease acut e Debility acute Hyperlipidemia acute Hypothyroidism acute Iron deficiency anemia acute Ulcerative colitis acute Hypertension chronic Acute diastolic (congestive) heart failure resolved Acute renal insufficiency re solved Bacteremia resolved Pancytopenia resolved Pneumonia resolved [facility] Work Phone: Evaluation note* Diagnosis Intracranial hemorrhage (HCC)- Primary Unspecified [facility] Onset Date Resolution Status Mitral valve insufficiency a cute PAD (peripheral artery disease) acute Atherosclerotic heart diseas e of [place] coronary artery without angina pectoris chronic Atrial fibrillation and flutter chronic Essential hypertension chron ic Hyperlipidemia chronic Skin tear acute Atrial fibrillation chronic Chronic kidney insufficiency chronic Acute renal insufficiency re solved Bacteremia resolved Generalized weakness resolve d Pancytopenia resolved Pneumonia resolved Acute kidney injury acute Alcohol dependence acute Anemia acute Atrial fibrillation chronic Coronary artery disease acut e Debility acute Hyperlipidemia acute Hypothyroidism acute Iron deficiency anemia acute Ulcerative colitis acute Hypertension chronic Acute diastolic (congestive) heart failure resolved Acute renal insufficiency re solved Bacteremia resolved Pancytopenia resolved Pneumonia resolved Mitral valve insufficiency a cute PAD (peripheral artery disease) acute Atherosclerotic heart diseas e of [place] coronary artery without angina pectoris chronic Atrial fibrillation and flutter chronic Essential hypertension chron ic Hyperlipidemia chronic [facility] Work Phone: Evaluation note* Diagnosis Onset Date Resolution Status Skin tear acute Atrial fibrillation chronic Chronic kidney insufficiency chronic Acute renal insufficiency re solved Bacteremia resolved Generalized weakness resolve d Pancytopenia resolved Pneumonia resolved Acute kidney injury acute Alcohol dependence acute Anemia acute Atrial fibrillation chronic Coronary artery disease acut e Debility acute Hyperlipidemia acute Hypothyroidism acute Iron deficiency anemia acute Ulcerative colitis acute Hypertension chronic Acute diastolic (congestive) heart failure resolved Acute renal insufficiency re solved Bacteremia resolved Pancytopenia resolved Pneumonia resolved Mitral valve insufficiency a cute PAD (peripheral artery disease) acute Atherosclerotic heart diseas e of [place] coronary artery without angina pectoris chronic Atrial fibrillation and flutter chronic Essential hypertension chron ic Hyperlipidemia chronic 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 Work Phone: Evaluation note* Diagnosis Intraparenchymal hematoma of right side of brain due to trauma, with unknown loss of consciousness status, initial encounter ([facility] Onset Date Resolution Status Mitral valve insufficiency a cute PAD (peripheral artery disease) acute Atherosclerotic heart diseas e of [place] coronary artery without angina pectoris chronic Atrial fibrillation and flutter chronic Essential hypertension chron ic Hyperlipidemia chronic Anemia chronic Pancytopenia chronic Peripheral vascular disease acute 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 Cellulitis of right leg acut e Edema acute Non-pressure ulcer of right lower extremity with necrosis of muscle acute Peripheral vascular disease acute 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 [id number] chronic Hyperkalemia acute Acute respiratory failure with hypoxia resolved Aspiration pneumonia resolve d Subclavian artery stenosis, left September, resolved Anemia chronic Edema acute [id number] acute Peripheral vascular disease acute 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 [id number] chronic Hyperkalemia acute Iron deficiency anemia acute Anemia chronic Dermatitis acute Edema acute Multiple excoriations acute [id number] [facility] Work Phone: Evaluation note* Diagnosis Onset Date Resolution Status Peripheral vascular disease acute 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 Peripheral vascular disease acute 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 Peripheral vascular disease acute 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 Cellulitis of right leg acut e Edema acute Non-pressure ulcer of right lower extremity with necrosis of muscle acute Peripheral vascular disease acute 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 [id number] chronic Hyperkalemia acute Pancytopenia acute Acute respiratory failure with hypoxia resolved Aspiration pneumonia resolve d Subclavian artery stenosis, left September, resolved Pancytopenia acute Anemia chronic Edema acute [id number] acute Peripheral vascular disease acute 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 [id number] chronic Hyperkalemia acute Iron deficiency anemia acute Anemia chronic Anemia chronic Ulcerative colitis chronic Dermatitis acute Edema acute Multiple excoriations acute [id number] [facility] Work Phone: Evaluation note* Diagnosis Onset Date Resolution Status Peripheral vascular disease acute 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 Peripheral vascular disease acute 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 Cellulitis of right leg acut e Edema acute Non-pressure ulcer of right lower extremity with necrosis of muscle acute Peripheral vascular disease acute 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 [id number] chronic Hyperkalemia acute Pancytopenia acute Acute respiratory failure with hypoxia resolved Aspiration pneumonia resolve d Subclavian artery stenosis, left September, resolved Pancytopenia acute Anemia chronic Edema acute [id number] acute Peripheral vascular disease acute 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 Work Phone: Evaluation noteNo assessment information available [facility] Work Phone: History and physical note Author Dr. Alexander [facility] November 29, 2022 4:54am Note Date/Time November 29, 2022 4:47a m [facility] Medical Records Department [address] [place] [id number] H&P Exam - Hospitalist 11/29/22 0439 MR#: [id number] Acct: [id number] Name: AMAURY BLANK Rep #:[id number] : 1940 82 From: Jakob Alexander DO PCP: Dr. Rosa Maria Santacruz MD Status:ADM IN Location: [facility] [id number] HPI - General General Date of Admission: 11/29/22 Date of Service: 11/29/22 Chief Complaint: fall HPI Narrative AMAURY BLANK, is a 82 M who presents with fall. Patient was going to the bathroom and when he was trying to sit down on the toilet he fell landing. Patient did not lose consciousness. He was unable to get himself up and was sent to the hospital. Patient states that he has been feeling okay not feeling rundown but did have a fall on Friday where he missed took something as being his night table and when he tried to grab it fell forward. Was able to get himself up at that time. They did a work-up in the emergency room this morning and patient was found to be pancytopenic which is actually not a new phenomenon but worse than previous, his creatinine was elevated from his baseline at 2.6 and a troponin was checked and was elevated at 134. Patient denies any chest pain. Urinalysis was performed and was unremarkable. Chest x- ray was concerning for a right lower lobe infiltrate patient was ordered IV fluids in the emergency room. The hospital service was contacted for further admission. [facility] Medical History Alcohol use Ambulates with cane Atherosclerotic heart disease of [place] coronary artery without angina pectoris Atrial fibrillation Atrial fibrillation and flutter Cardiology follow-up encounter Carotid artery stenosis Dietary restriction Emphysema of lung Essential hypertension Former smoker Hematemesis/vomiting blood High cholesterol History of atrial fibrillation History of cardioversion (~05/09/20) History of coronary artery disease History of echocardiogram History of GI bleed History of right inguinal hernia History of stress test History of transesophageal echocardiography (ROSI) History of umbilical hernia Hx of ulcerative colitis Hypercholesterolemia Hyperlipidemia Hypertension Injury of head and neck 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 Mitral valve insufficiency PAD (peripheral artery disease) Premature atrial contractions Right carotid bruit Shortness of breath on exertion Subclavian artery stenosis, left (~10/15/19) Thrombocytopenia Thrombocytopenia Thyroid disease Ulcerative colitis Ulcerative colitis Upper GI bleed Upper GI bleed Walker as ambulation aid Wears glasses Wears hearing aid Home Medications ferrous sulfate 325 mg (65 mg iron) tablet 325 mg PO DAILY vitamin 05/28/15 [History Last Taken 05/09/20] zinc gluconate 50 mg tablet 50 mg PO DAILY supplement 05/28/15 [History Last Taken 05/09/20] vitamin B complex 1 each PO DAILY vitamin 02/07/16 [History Last Taken 05/09/20] aspirin 81 mg tablet,delayed release 81 mg PO DAILY@0800 heart health 08/29/16 [History Last Taken 04/23/21] levothyroxine 50 mcg tablet 75 mcg PO DAILY thyroid 06/13/20 [History Last Taken Unknown] balsalazide 750 mg capsule (Colazal) 2,250 mg PO BID 05/16/21 [History Last Taken Unknown] atorvastatin 40 mg tablet (Lipitor) 40 mg PO DAILY #90 tabs 03/13/22 [Rx Last Taken Unknown] chlorthalidone 25 mg tablet 25 mg PO DAILY #90 tabs 05/21/22 [Rx Last Taken Unknown] amiodarone 200 mg tablet 200 mg PO DAILY Afib/Flutter #90 tabs 05/27/22 [Rx Last Taken Unknown] amlodipine 10 mg tablet 10 mg PO DAILY #90 tabs 06/20/22 [Rx Last Taken Unknown] carvedilol 6.25 mg tablet (Coreg) 6.25 mg PO BID #180 tabs 10/17/22 [Rx Last Taken Unknown] lisinopril 20 mg tablet 20 mg PO BID #180 tabs 11/26/22 [Rx Last Taken Unknown] hydralazine 50 mg tablet 50 mg PO BID 11/29/22 [History Last Taken Unknown] Allergy/AdvReac Type Severity Reaction Status Date / Time hydrochlorothiazide Allergy Severe Rash Verified 11/29/22 01:38 furosemide [From Lasix] Allergy Severe Verified 11/29/22 01:38 Rash Itchy lovastatin [From Mevacor] Allergy Rash Verified 11/29/22 01:38 amlodipine AdvReac Swelling Verified 11/29/22 01:38 Family History Father CAD (coronary artery disease) Mother Cancer breast Surgical History Aortocoronary bypass status (~02/12/17) History of cardiac catheterization History of hand surgery History of right inguinal hernia repair History of umbilical hernia repair History of vasectomy Hx of CABG Hx of colonoscopy Hx of esophagogastroduodenoscopy Hx of heart bypass surgery S/P right inguinal hernia repair S/P umbilical hernia repair, follow-up exam Status post insertion of drug-eluting stent into right coronary artery for coronary artery disease (~04/2009) Social History adopted: No household members: spouse housing: house number of children: 2 current occupational status: retired Smoking Status: Former smoker Tobacco: How many years used: 50 (stopped about 10 yrs ago) how long ago did patient quit smokin years ago alcohol intake: current alcohol intake frequency: 3 or more drinks per day Alcohol type: beer, wine and hard liquor substance use type: does not use caffeine: Yes Type: coffee Number of servings: 2 ROS ROS Narrative Chronic presbycusis and currently does not have his hearing aids in. Denies anychanges to his voice. States that he has been eating and drinking well. Deniesany fever or chills. Did have some nausea when this event occurred. All reviewof systems were negative except as mentioned above in the history of present illness and the other review of systems. Vital Signs Vital Signs Vital Signs: 11/29/22 01:38 11/29/22 01:42 11/29/22 02:42 Temperature 38.3 C H 38.2 C H Temperature Source Oral Temporal Pulse Rate 69 67 Respiratory Rate 17 16 Respiratory Effort Normal Non-Labored Respiratory Depth Normal Respiratory Pattern Normal Blood Pressure 138/61 H 137/53 H Blood Pressure Mean 86 81 Pulse Ox 94 94 Oxygen Delivery Method Room Air Room Air Room Air 11/29/22 03:00 11/29/22 04:00 Temperature 38.2 C H Temperature Source Temporal Pulse Rate 67 59 L Respiratory Rate 15 16 Respiratory Effort Respiratory Depth Respiratory Pattern Blood Pressure 137/53 H 125/53 H Blood Pressure Mean 81 77 Pulse Ox 95 96 Oxygen Delivery Method Room Air Room Air Weight Weight: 81.8 kg Body Mass Index (BMI) 25.1 Physical Exam Const alert and no apparent distress Constitutional Narrative: Hard of hearing. Voice is monotone and sometimes difficult to understand at times. When he hears questions, he answers them appropriately. HEENT normocephalic and head/scalp atraumatic HEENT Narrative: Mucous membranes dry Eyes EOMs intact bilaterally Eyes Narrative: No icterus Resp normal respiratory effort, no retractions, no use of accessory muscles and clearto auscultation bilaterally Cardio regular rate, regular rhythm, S1 normal heart sound and S2 normal heart sound GI normal to inspection, nondistended, normoactive bowel sounds, soft to palpation,non-tender and non-distended Extremity Extremity Narrative: Slight edema of the left lower extremity. Skin Skin Narrative: Skin tears noted on the left anterior hodgson. Neuro moves all extremities Sensorium / Orientation: awake and alert Psych affect normal Results Lab / Micro Data Result Diagrams: 11/29/22 02:03 11/29/22 02:03 Labs: Laboratory Results - last 24 hr 11/29/22 02:03: WBC 2.0 L, RBC 2.31 L, Hgb 8.1 L, Hct 25.0 L, MCV 108.2 H, MCH 35.1 H, MCHC 32.4, RDW Std Deviation 62.1 H, RDW Coeff of Chanel 15.7 H, Plt Count 55 L, MPV 10.6, Immature Gran % (Auto) 0.000, Neut % (Auto) 82.6 H, Lymph % (Auto) 10.4 L, [place] % (Auto) 6.5, Eos % (Auto) 0.0, Baso % (Auto) 0.5, Absolute Neuts (auto) 1.7 L, Absolute Lymphs (auto) 0.21 L, Nucleated RBC % 0, Diff Path Review May , Platelet Estimate MOD DEC, Anisocytosis 1+, Macrocytosis 2+ 11/29/22 02:03: Sodium 140, Potassium 4.9, Chloride 111 H, Carbon Dioxide 22.0, Anion Gap 7, BUN 43 H, Creatinine 2.67 H, Estim Creat Clear Calc 23.11, Est GFR (MDRD) Af Amer 30 L, Est GFR (MDRD) Non-Af 25 L, BUN/Creatinine Ratio 16.1, Glucose 119 H, Calcium 8.3 L, Total Bilirubin 0.90, AST 35, ALT 17, Alkaline Phosphatase 68, Total Protein 5.4 L, Albumin 3.0 L, Globulin 2.4, Albumin/Globulin Ratio 1.2 11/29/22 02:03: Ethyl Alcohol < 3.0 11/29/22 02:03: Lactic Acid 1.7 11/29/22 02:03: Troponin I High Sens 134 H* 11/29/22 02:54: Urine Color Yellow, Urine Clarity Clear, Urine pH 5.0, Ur Specific [place] 1.015, Urine Protein 100 H, Urine Glucose (UA) Normal, Urine Ketones Negative, Urine Occult Blood Negative, Urine Nitrite Negative, Urine Bilirubin Negative, Urine Urobilinogen Normal, Ur Leukocyte Esterase Negative, Urine RBC 0 SEEN, Urine WBC 0 SEEN, Ur Squamous Epith Cells 0 SEEN, Urine Bacteria 1+, Urine Mucus 0 SEEN Micro: Microbiology 11/29/22 02:06 Nasal Secretion SARS-CoV-2 & FLU Antigen (Rapid) - Final Radiology Impression Chest X-Ray 11/29/22 01:50 IMPRESSION: Right infrahilar opacity, concerning for infection. Electronically Signed: Warren Haro MD at 2:53 EDT , Foot X-Ray 11/29/22 01:57 IMPRESSION: No acute fracture or dislocation. Soft tissue swelling in the dorsum of the foot. Electronically Signed: Warren Haro MD at 2:47 EDT , Assessment & Plan Assessment/Plan (1) Pneumonia: PLAN: Suspected pneumococcal Chest x-ray personally reviewed and shows a patchy right lower lobe infiltrate. Not present on previous chest x-rays from 2021. Plan: Pulmonary toilet, antibiotics with ceftriaxone and azithromycin, check urinary antigens for Streptococcus and Legionella, check sputum culture (2) Elevated troponin: PLAN: Unclear significance. Patient was not having any chest pain and this was not a syncopal episode. Unfortunately was checked and will follow that up with serial troponins as well as an echocardiogram. I would suspect there is at least some component that is skewed due to his chronic kidney disease (3) Pancytopenia: PLAN: Chronic but does appear to be worse. We will continue to monitor. With his anemia, we will check an iron, ferritin, total iron-binding capacity, B12, TSH and folate. No need to transfuse at this time. (4) Generalized weakness: PLAN: Patient had 2 falls. In the interim due to syncope but patient was unableto get up today. PT OT evaluate and treat Cannot rule out need for retirement facility upon discharge. (5) Skin tear: PLAN: On left hodgson: Status post fall. Consult wound care (6) Acute renal insufficiency: PLAN: On CKD 3B/CKD 4 Creatinine is up from his baseline Clinically appears dry And will give fluids PLAN: Plan Chronic conditions * Coronary artery disease: Status post CABG and stents. Holding the patient's aspirin given the thrombocytopenia. Continue with carvedilol * Hypertension: Continue with amlodipine and lisinopril * A-fib: Continue with amiodarone. Previously was not on anticoagulation given history of GI bleed. * Hyperlipidemia: Continue with statin * Peripheral arterial disease: Follow-up with vascular surgery per routine VTE prophylaxis: Avoiding chemical prophylaxis given thrombocytopenia. SCDs CODE STATUS: Addressed with the patient. Patient wishes to be DNR Comfort Care arrest no intubation. He stated that he did not want heroics. Disposition: To be determined. Given the patient's multiple acute issues as well as his multiple profound chronic medical conditions, anticipate this patient being hospitalized for 48 to 72 hours. Charges/Coding Visit Charges Inpatient E&M: 34938 Init Hosp L3 11/29/22 0454 <Electronically signed by Jakob Alexander DO> Cosigner Signature (if applicable): CC: Dr. Rosa Maria Santacruz MD; Dr. Jakob Alexander DO~ Signed [facility] Work Phone: Reason for referral (narrative)No reason for referral information availableWDunlap [facility] Work Phone: Hospital Course * Kylah Liz MD - 09/21/2020 2:41 PM EDT Images from the original note were not included. Discharge Summary Amaury Blank : 1940 Age: 80 y.o. ADMIT DATE: 09/11/2020 DISCHARGE DATE: 09/21/2020 DISCHARGING SURGEON: Kassandra Davidson MD Office Number: [phone] PRIMARY CARE PHYSICIAN: No primary care provider on file. VISIT STATUS: Admission CODE STATUS: Limited DISCHARGE DIAGNOSES: 1. Right-sided empyema 2. Community-acquired pneumonia 3. MYRON 4. Hx HTN 5. Hx CAD 6. Hx HFpEF 7. Hx Afib 8. Hx UC 9. Overweight Body mass index is 26.44 kg/m . BMI Classification: Overweight (BMI 25.0-29.9) HOSPITAL COURSE: Amaury Blank is a 80-year-old male admitted 09/11/20 with a right-sided empyema. On 09/12/20, he underwent CT-guided pigtail catheter placement by interventional radiology. Following pigtail catheter placement, tPA was administered. Repeat CT imaging demonstrated improvement in his right pleural ef fusion. However, due to persistently elevated pigtail catheter output and concern for lung entrapment, he was taken to the OR for right VATS with pleural biopsy and washout on 09/19/20. He was admitted to [facility] for postoperative management. Postoperatively, his pain control gradually improved. He was t ransitioned from IV to oral pain medication. He was weaned off supplemental oxygen. Due to CXR stability, his chest tubes were removed. ID recommended continuation of antibiotics through 10/04/20 at discharge. He underwent PICC placement on 09/19/20 to facilitate antibiotic therapy at discharge. Due to clinical improvement, he was deemed stable for discharge home on 09/21/20. DISCHARGE MEDICATIONS: Amaury Blank Home Medication Instructions DARIUS:[id number] Printed on:09/21/20 1522 Medication Information amiodarone (CORDARONE) 200 MG tablet Take 200 mg by mouth daily apixaban (ELIQUIS) 2.5 MG TABS tablet Take 1 tablet by mouth 2 times daily aspirin 81 MG EC tablet Take 81 mg by mouth daily atorvastatin (LIPITOR) 40 MG tablet Take 40 mg by mouth daily balsalazide (COLAZAL) 750 MG capsule Take 750 mg by mouth daily ferrous sulfate (IRON 325) 325 (65 Fe) MG tablet Take 325 mg by mouth daily (with breakfast) levothyroxine (SYNTHROID) 50 MCG tablet Take 50 mcg by mouth Daily lisinopril (PRINIVIL;ZESTRIL) 20 MG tablet Take 20 mg by mouth daily metoprolol tartrate (LOPRESSOR) 25 MG tablet Take 25 mg by mouth daily metroNIDAZOLE (FLAGYL) 500 MG tablet Take 1 tablet by mouth 3 times daily for 13 days oxyCODONE-acetaminophen (PERCOCET) 5-325 MG per tablet Take 1 tablet by mouth every 6 hours as needed for Pain for up to 7 days. Intended supply: 7 days. Take lowest dose possible to manage pain pantoprazole (PROTONIX) 40 MG tablet Take 40 mg by mouth daily polyethylene glycol (GLYCOLAX) 17 GM/SCOOP powder Take 17 g by mouth daily as needed (Constipation) vitamin B-12 (CYANOCOBALAMIN) 500 MCG tablet Take 500 mcg by mouth daily zinc gluconate 50 MG tablet Take 50 mg by mouth daily DIET: DIET GENERAL; ACTIVITY: As tolerated COMPLEXITY OF FOLLOW UP: [] Follow-up CT surgery 1 week [x] Follow-up CT surgery 2 week DISPOSITION: Home A copy of the discharge instructions which included the medications at the time of discharge, follow-up appointments, phone numbers to call with questions, activity, restrictions, and limitations wasprovided to the patient or their family. We greatly appreciate the opportunity to participate in the care of your patient. If you have any additional questions or concerns regarding any aspects of their care or management please do not hesitate to contact us. SIGNED: Kylah Liz MD documented in this encounter Discharge Instructions * Discharge Instr - Other Orders* Eve Queen RN - 09/21/2020 3:05 PM EDT 2pm appointment 09/22/2020 [facility]- [address] [place] [id number] New part of building behind [employer] of [employer] Guest parking lot Ground floor to the left infusion center Stop Date- 10/04/20 Infusion Center will draw Labs (CBC/d, serum creatinine, LFTs) every Friday while on antimicrobials [facility] will call to schedule follow up in [address] chest w/o contrast before the followup appointment [facility]: [phone] * Additional Instructions* Kylah Liz MD - 09/19/2020 Images from the original note were not included. [facility]: Cardiothoracic Surgery [address] Bridgett ALONSO (T): #[phone] (F): #[phone] After lung surgery, it is common to feel tired up to 6 to 8 weeks. Your chest may hurt and or be swollen for up to 6 weeks. It can also ache or feel stiff for up to 3 months. It is not uncommon to have tightness, itching, numbness, or tingling around the incision for up to 3 months. You may feel short of breath at first after the surgery. It is important to continue the deep-breathing and coughing exercises that you were taught in the hospital at home during your recovery. This helps your body get as much oxygen as possible. The amount of time you will need to recover depends on the surgery you had. You probably will need to take at least 1 to 2 months off work dependent on the work you do. Your Recovery: Activity, Diet, Incisional Care and Exercise Rest when you feel tired. Getting enough sleep will help you recover. Try to walk each day. Start by walking a little more than you did the day before, increasing the amount you walk. Walking boosts blood flow and helps prevent pneumonia and constipation. Do not smoke or allow others to smoke around you. If you need help quitting, talk to your provider about stop-smoking programs and medicines. These can increase your chances of quitting for good. Try to avoid being around people who you know have a cold, the flu, or other illness. Avoid strenuous activities, such as bicycle riding, jogging, weight lifting, or aerobic exercise for at least 4 weeks. Also avoid swimming, tennis, golf, or other activities that could strain your arm and shoulder muscles, during this time. Initial weight restriction is 10lbs for 2 weeks, avoid lifting anything that would make you strain.This may include a child, heavy grocery bags and milk containers, a heavy briefcase or backpack, cat litter or dog food bags, or a vacuum kiln cleaner. If your incision is in the front or the side of your chest, hold a pillow over the incision when you cough or take deep breaths. This will support your chest and decrease your pain. No driving for 2 weeks. This is because your arm and shoulder muscles may be stiff after surgery and could make it difficult to steer. You must also be off all narcotic and sedative medications priorto returning to driving. Ok to shower. Avoid any baths or hot-tubs for 3 weeks. Wash you incision daily with warm, soapy water, and pat it dry. Do not scrub your incision(s). Do not apply any lotions or powders, hydrogen peroxide or alcohol on your incision(s). You may cover the area with a gauze bandage if it weeps or rubs against your clothing. Keep the area clean and dry. Diet: You can eat your normal diet. If your stomach is upset, try bland, low-fat foods like plain rice, broiled chicken, toast, and yogurt. Drink plenty of fluids. You may notice that your bowel movements are not regular right after your surgery. This is common. Try to avoid constipation and straining with bowel movements. You may take an over the counter stool softener as needed. If your incision has freddy, these will be removed at your follow-up visit 10- 14 days with your provider. Also, sutures from drains/tubes will be removed at this time. Continue to follow discharge stretching exercises outlined below. Start each exercise slowly. Ease off the exercises if you start to have pain. Shoulder Stretch 1. personal lines sales rep a doorway and place one arm against the door frame. Your elbow should be a little higher than your shoulder. 2. Relax your shoulders as you lean forward, allowing your chest and shoulder muscles to stretch. You can also turn your body slightly away from your arm to stretch the muscles even more. 3. Hold for 15 to 30 seconds. 4. Repeat 2 to 4 times with each arm. Shoulder and Chest Stretch 1. While sitting, relax your upper body so you slump slightly in your chair. 2. As you breathe in, straighten your back and open your arms out to the sides. 3. Gently pull your shoulder blades back and downward. 4. Hold for 15 to 30 seconds as your breathe normally. 5. Repeat 2 to 4 times. Overhead stretch 1. Reach up over your head with both arms. 2. Hold for 15 to 30 seconds. 3. Repeat 2 to 4 times. Acute post operative pain management: -Continue to use narcotic/opioid analgesic medication prescribed on discharge from the hospital. Ifyou are prescribed oxycodone/acetaminophen (Percocet) or hydrocodone/acetaminophen ([place]/Vicodin) be cautious when taking additional tylenol. No driving or operating heavy machinery while taking a narcotic/opioid analgesic medication. -Tylenol (acetaminophen) 500 mg 1-2 tablets every 6 hours. No more than 4 grams in 24 hour period. Tylenol is not recommended with liver disorders. -Motrin (ibuprofen) 200-400 mg by mouth every 4-6 hours (or) 600-800mg every 8 hours as needed if not contraindicated. Ibuprofen is not recommended with renal disorders or if you are taking Warfarin (coumadin/jantoven). Maximum dose 3,200 mg per day. -Over the counter pain patches called Salon pas may used as needed next to incision but not on yourincision. -Ice packs applied for 20 minutes then off for at least 20 minutes before reapplying. Call your Surgeon or return to the Emergency Room if you experience: -New or increased pain. -New or increased bleeding. -Nausea & vomiting. -Fever & chills. -Shortness of breath. -Chest pain. -Abdominal distention. documented in this encounter* Discharge Instr - Activity* Afshan Pfeiffer MD - 10/07/2020 12:06 PM EDT Up as tolerated. * Discharge Instr - Diet* Afshan Pfeiffer MD - 10/07/2020 12:21 PM EDT Images from the original note were not included. Good nutrition is important when healing from an illness, injury, or surgery. Follow any nutrition recommendations given to you during your hospital stay. If you were given an oral nutrition supplement while in the hospital, continue to take this supplement at home. You can take it with meals, in-between meals, and/or before bedtime. These supplements can be purchased at most local grocery stores, pharmacies, and chain [employer]-stores. If you have any questions about your diet or nutrition, call the hospital and ask for the dietitian. Diet low salt, low cholesterol. Dietary supplement: Ensure daily with dinner. Low Sodium Diet (2,000 Milligram): Care Instructions Overview Limiting sodium can be an important part of managing some health problems. The most common source of sodium is salt. People get most of the salt in their diet from canned, prepared, and packaged foods. Fast food and restaurant meals also are very high in sodium. Your doctorwill probably limit your sodium to less than 2,000 milligrams (mg) a day. This limit counts all thesodium in prepared and packaged foods and any salt you add to your food. Follow-up care is a hernadez part of your treatment and safety. Be sure to make and go to all appointments, and call your doctor if you are having problems. It's also a good idea to know your test resultsand keep a list of the medicines you take. How can you care for yourself at home? Read food labels Read labels on cans and food packages. The labels tell you how much sodium is in each serving. Makesure that you look at the serving size. If you eat more than the serving size, you have eaten more sodium. Food labels also tell you the Percent Daily Value for sodium. Choose products with low Percent Daily Values for sodium. Be aware that sodium can come in forms other than salt, including monosodium glutamate (MSG), sodium citrate, and sodium bicarbonate (baking soda). MSG is often added to food. When you eat out,you can sometimes ask for food without MSG or added salt. Buy low-sodium foods Buy foods that are labeled unsalted (no salt added), sodium-free (less than 5 mg of sodium per serving), or low-sodium (140 mg or less of sodium per serving). Foods labeled reduced-sodium andlight sodium may still have too much sodium. Be sure to read the label to see how much sodium youare getting. Buy fresh vegetables, or frozen vegetables without added sauces. Buy low-sodium versions of canned vegetables, soups, and other canned goods. Prepare low-sodium meals Cut back on the amount of salt you use in cooking. This will help you adjust to the taste. Do not add salt after cooking. One teaspoon of salt has about 2,300 mg of sodium. Take the salt shaker off the table. Flavor your food with garlic, lemon juice, onion, vinegar, herbs, and spices. Do not use soy sauce,lite soy sauce, steak sauce, onion salt, garlic salt, celery salt, or ketchup on your food. Use low-sodium salad dressings, sauces, and ketchup. Or make your own salad dressings and sauces without adding salt. Use less salt (or none) when recipes call for it. You can often use half the salt a recipe calls for without losing flavor. Other foods such as rice, pasta, and grains do not need added salt. Rinse canned vegetables, and cook them in fresh water. This removes somebut not allof the salt. Avoid water that is naturally high in sodium or that has been treated with water softeners, which add sodium. If you buy bottled water, read the label and choose a sodium-free brand. Avoid high-sodium foods Avoid eating: Smoked, cured, salted, and canned meat, fish, and poultry. Ham, huerta, hot dogs, and luncheon meats. Regular, hard, and processed cheese and regular peanut butter. Crackers with salted tops, and other salted snack foods such as pretzels, chips, and salted popcorn. Frozen prepared meals, unless labeled low-sodium. Canned and dried soups, broths, and bouillon, unless labeled sodium-free or low-sodium. Canned vegetables, unless labeled sodium-free or low-sodium. Armenian fries, pizza, tacos, and other fast foods. Pickles, olives, ketchup, and other condiments, especially soy sauce, unless labeled sodium-free orlow-sodium. Where can you learn more? Go to [email or web address] and sign in to your [employer] account. Enter V843 in the Search Health Information box to learn more about Low Sodium Diet (2,000 Milligram): Care Instructions. If you do not have an account, please click on the Sign Up Now link. Current as of: June 15, 2020 Content Version: 12.8 [employer]. Care instructions adapted under license by [employer]. If you have questions about a medical condition or this instruction, always ask your healthcare professional. [employer] disclaims any warranty or liability for your use of this information. documented in this encounter History of Present Illness * Orlando Goetz MD - 09/21/2020 4:47 PM EDT [facility] Progress Note SUBJECTIVE: Patient denies current CP, SOB. Confused 'pain 01/06 In ICU Right VATS with pleural biopsy and washout Medications Scheduled Meds: sodium chloride flush 10 mL Intravenous 2 times per day sodium chloride flush 10 mL Intravenous 2 times per day heparin flush 250 Units Intravenous 2 times per day aspirin 81 mg Oral Daily amiodarone 200 mg Oral Daily apixaban 2.5 mg Oral BID sodium chloride flush 10 mL Intracatheter Q12H heparin flush 250 Units Intracatheter Q12H balsalazide 2,250 mg Oral BID ipratropium-albuterol 1 ampule Inhalation 4x daily polyethylene glycol 17 g Oral Daily docusate sodium 100 mg Oral BID cefTRIAXone (ROCEPHIN) IV 1,000 mg Intravenous Q24H metroNIDAZOLE 500 mg Oral 2 times per day acetaminophen 1,000 mg Oral 3 times per day thiamine mononitrate 100 mg Oral Daily sodium chloride flush 10 mL Intravenous 2 times per day atorvastatin 40 mg Oral Nightly levothyroxine 50 mcg Oral Daily metoprolol tartrate 25 mg Oral Daily pantoprazole 40 mg Oral Daily Continuous Infusions: Prn Meds : sodium chloride flush, heparin flush, sodium chloride flush, heparin flush, oxyCODONE OR oxyCODONE, ondansetron, morphine OR morphine, LORazepam, sodium chloride flush, benzonatate Home Meds: No current facility-administered medications on file prior to encounter. Current Outpatient Medications on File Prior to Encounter Medication Sig Dispense Refill atorvastatin (LIPITOR) 40 MG tablet Take 40 mg by mouth daily vitamin B-12 (CYANOCOBALAMIN) 500 MCG tablet Take 500 mcg by mouth daily ferrous sulfate (IRON 325) 325 (65 Fe) MG tablet Take 325 mg by mouth daily (with breakfast) levothyroxine (SYNTHROID) 50 MCG tablet Take 50 mcg by mouth Daily zinc gluconate 50 MG tablet Take 50 mg by mouth daily amiodarone (CORDARONE) 200 MG tablet Take 200 mg by mouth daily aspirin 81 MG EC tablet Take 81 mg by mouth daily pantoprazole (PROTONIX) 40 MG tablet Take 40 mg by mouth daily balsalazide (COLAZAL) 750 MG capsule Take 750 mg by mouth daily lisinopril (PRINIVIL;ZESTRIL) 20 MG tablet Take 20 mg by mouth daily metoprolol tartrate (LOPRESSOR) 25 MG tablet Take 25 mg by mouth daily OBJECTIVE Physical BP (!) 117/59 Pulse 74 Temp 98.5 F (36.9 C) (Oral) Resp 15 Ht 5' 11 (1.803 m) Wt 189 lb 9.5 oz (86 kg) SpO2 97% BMI 26.44 kg/m 24HR INTAKE/OUTPUT: Intake/Output Summary (Last 24 hours) at 09/21/2020 1647 Last data filed at 09/21/2020 0600 Gross per 24 hour Intake 300 ml Output 170 ml Net 130 ml General: confused HEENT: Atraumatic, normocephalic Eyes: EOMI Chest: +CT tube Cardiac: S1 S2 RR, no murmurs, gallops or rubs Abdomen: Soft, non-tender, BS audible. Extremities: No lower extremity edema Data Last 3 CMP: Recent Labs 09/19/20 0142 09/20/20 0000 09/21/20 0436 NA 133* 131* 129* K 4.8 5.2* 5.3* CL 106 106 105 CO2 21* 18* 21* BUN 44* 40* 38* CREATININE 1.79* 1.73* 1.85* CALCIUM 8.6 8.7 8.6 Last 3 CBC: Recent Labs 09/19/20 0142 09/20/20 0000 09/21/20 0436 WBC 6.4 7.6 10.7 RBC 2.84* 2.70* 2.62* HGB 9.4* 8.9* 8.7* HCT 28.3* 27.4* 26.5* MCV 99.9* 101.5* 101.0* MCH 33.2 33.1 33.4 MCHC 33.3 32.5 33.0 RDW 14.8* 15.2* 15.5* PLT 155 152 180 MPV 7.8 8.6 7.4 ASSESSMENT Patient Active Problem List Diagnosis Date Noted detention (current) use of antibiotics Parapneumonic effusion 09/12/2020 ASSESSMENT/PLAN: 1. MYRON- unknown Scr baseline (? 1.8-1.9mg/dl), Scr improved, most recent trend 1.99->1.8-->1.79->1.73-->1.85 mg/dl -good UO over past 24hr measuring period per EMR -Right VATS with pleural biopsy and washout -IVF NS 75 ml/hr 2. Hyponatremia- mild, improved at 133 this AM, monitor 3. Anemia- Hgb at 8.7 this AM, monitor. Transfuse PRN per primary Orlando Goetz MD 09/21/2020 4:47 PM * Sha Downs MD - 09/21/2020 10:20 AM EDT Progress Note [facility] Patient - Amaury Blank, Age - 80 y.o. 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 B/l infiltrates concern for PNA, community acquired versus aspiration HFpEF Afib MYRON PLAN --pleural fluid cx with strep intermedius + anaerobes --c/w ceftriaxone + flagyl --pleural fluid cytology- no malignant cells --s/p post right VATs, washout and pleural biopsy today- patient had a pleuro alveolar fistula -- pleural biopsy with acute and chronic granulomatous inflammation -- gram stain and cx , ngtd, AFB cx: in process COPAT: place PICC line, Ceftriaxone 2g q24 + flagyl 500 q8 until 10/04/20. Need repeat CT chest in 2 week. F/u in ID clinic after repeat CT SUBJECTIVE: ROS with patient/RN unless stated otherwise. Denied cough, SOB, chest pain, abdominal pain, nausea,vomiting, dysuria, diarrhea, headache Drain is out Plan is for discharge today OBJECTIVE VITALS height is 5' 11 (1.803 m) and weight is 189 lb 9.5 oz (86 kg). His oral temperature is 98.4 F (36.9 C). His blood pressure is 127/53 (abnormal) and his pulse is 61. His respiration is 14 and oxygen saturation is 98%. Temp (24hrs), Av.7 F (36.5 C), Min:97 F (36.1 C), Max:98.4 F (36.9 C) General Appearance: alert, awake HEENT: wnl Neck: Supple Lungs: Clear to auscultation b/l on room air Cardiovascular: RRR Abdomen: Soft NT, ND, BS+ : no CVAT. Neurologic: Alert and oriented x 3 no focal deficits Skin: No rashes Extremities: No edema, No joint inflammation Lines: sites clean MEDICATIONS: lidocaine 1 % injection 5 mL Intradermal Once sodium chloride flush 10 mL Intravenous 2 times per day sodium chloride flush 10 mL Intravenous 2 times per day heparin flush 250 Units Intravenous 2 times per day aspirin 81 mg Oral Daily amiodarone 200 mg Oral Daily apixaban 2.5 mg Oral BID balsalazide 2,250 mg Oral BID ipratropium-albuterol 1 ampule Inhalation 4x daily polyethylene glycol 17 g Oral Daily docusate sodium 100 mg Oral BID cefTRIAXone (ROCEPHIN) IV 1,000 mg Intravenous Q24H metroNIDAZOLE 500 mg Oral 2 times per day acetaminophen 1,000 mg Oral 3 times per day thiamine mononitrate 100 mg Oral Daily sodium chloride flush 10 mL Intravenous 2 times per day atorvastatin 40 mg Oral Nightly levothyroxine 50 mcg Oral Daily metoprolol tartrate 25 mg Oral Daily pantoprazole 40 mg Oral Daily LABS: CBC: Recent Labs 09/19/20 0142 09/20/20 0000 09/21/20 0436 WBC 6.4 7.6 10.7 HGB 9.4* 8.9* 8.7* PLT 155 152 180 BMP: Recent Labs 09/19/20 0142 09/20/20 0000 09/21/20 0436 NA 133* 131* 129* K 4.8 5.2* 5.3* CL 106 106 105 CO2 21* 18* 21* BUN 44* 40* 38* CREATININE 1.79* 1.73* 1.85* GLUCOSE 106* 186* 96 Hepatic: No results for input(s): ALKPHOS, ALT, AST, PROT, BILITOT, LABALBU in the last 72 hours. Lactic Acid: No results for input(s): LACTA in the last 72 hours. MICROBIOLOGY: 09/12 R chest abscess: strep intermedius and anaerobic gnb 09/12 legionella/strep negative 09/11 blood cx: no growth IMAGING: reviewed Sha Downs MD [facility] Pager: [phone] 09/21/2020 10:20 AM * Kylah Liz MD - 09/21/2020 4:30 AM EDT Images from the original note were not included. Cardiothoracic Surgery Progress Note 09/21/2020 5:54 AM Subjective: Admit Date: 09/11/2020 PCP: No primary care provider on file. Clinical Course IR Right pigtail catheter placement 09/12 tPA 4mg administered 09/13 CT Chest 09/13 - Significant improvement in right pleural effusion. No loculation. tPA 4mg administered 09/14 tPA 2mg administered 09/16 tPA 2mg administered 09/17 Right VATS with pleural biopsy and washout 09/19 Interval History No acute events overnight. Afebrile. VSS. Maintaining SpO2 on room air. Pain well controlled. Denies dyspnea. Tolerating diet. PO intake 1050cc / 24H. Voiding without difficulty. Out of bed to chair and ambulatory yesterday. Right Ladonna drain to suction. Output 170cc / 24H. Objective: Vitals: Temp (24hrs), Av.6 F (36.4 C), Min:97 F (36.1 C), Max:98.2 F (36.8 C) BP (!) 145/44 Pulse 62 Temp 98 F (36.7 C) (Oral) Resp 20 Ht 5' 11 (1.803 m) Wt 189 lb 9.5 oz (86 kg) SpO2 98% BMI 26.44 kg/m I/O: Patient Vitals for the past 96 hrs (Last 3 readings): Weight 09/20/20 0600 189 lb 9.5 oz (86 kg) Labs and Diagnostics: (reviewed in EMR) BMP: Recent Labs 09/19/20 0142 09/20/20 0000 09/21/20 0436 NA 133* 131* 129* K 4.8 5.2* 5.3* CL 106 106 105 CO2 21* 18* 21* BUN 44* 40* 38* CREATININE 1.79* 1.73* 1.85* GLUCOSE 106* 186* 96 . CBC: Recent Labs 09/20/20 0000 09/21/20 0436 WBC 7.6 10.7 HGB 8.9* 8.7* PLT 152 180 INR: Lab Results Component Value Date PROTIME 11.8 09/19/2020 INR 1.1 09/19/2020 Medications: Scheduled Meds: heparin (porcine) 5,000 Units Subcutaneous 3 times per day balsalazide 2,250 mg Oral BID ipratropium-albuterol 1 ampule Inhalation 4x daily polyethylene glycol 17 g Oral Daily docusate sodium 100 mg Oral BID cefTRIAXone (ROCEPHIN) IV 1,000 mg Intravenous Q24H metroNIDAZOLE 500 mg Oral 2 times per day acetaminophen 1,000 mg Oral 3 times per day thiamine mononitrate 100 mg Oral Daily sodium chloride flush 10 mL Intravenous 2 times per day atorvastatin 40 mg Oral Nightly levothyroxine 50 mcg Oral Daily metoprolol tartrate 25 mg Oral Daily pantoprazole 40 mg Oral Daily Continuous Infusions: Home Meds: Prior to Admission medications Medication Sig Start Date End Date Taking? Authorizing Provider oxyCODONE-acetaminophen (PERCOCET) 5-325 MG per tablet Take 1 tablet by mouth every 6 hours as needed for Pain for up to 7 days. Intended supply: 7 days. Take lowest dose possible to manage pain 09/19/20 09/26/20 Yes Kylah Liz MD polyethylene glycol (GLYCOLAX) 17 GM/SCOOP powder Take 17 g by mouth daily as needed (Constipation)09/19/20 10/19/20 Yes Kylah Liz MD atorvastatin (LIPITOR) 40 MG tablet Take 40 mg by mouth daily Yes Historical Provider, vitamin B-12 (CYANOCOBALAMIN) 500 MCG tablet Take 500 mcg by mouth daily Yes Historical Provider, ferrous sulfate (IRON 325) 325 (65 Fe) MG tablet Take 325 mg by mouth daily (with breakfast) Yes Historical Provider, doxycycline hyclate (VIBRA-TABS) 100 MG tablet Take 100 mg by mouth daily Yes Historical Provider, levothyroxine (SYNTHROID) 50 MCG tablet Take 50 mcg by mouth Daily Yes Historical Provider, zinc gluconate 50 MG tablet Take 50 mg by mouth daily Yes Historical Provider, amiodarone (CORDARONE) 200 MG tablet Take 200 mg by mouth daily Yes Historical Provider, aspirin 81 MG EC tablet Take 81 mg by mouth daily Yes Historical Provider, pantoprazole (PROTONIX) 40 MG tablet Take 40 mg by mouth daily Yes Historical Provider, balsalazide (COLAZAL) 750 MG capsule Take 750 mg by mouth daily Yes Historical Provider, apixaban (ELIQUIS) 2.5 MG TABS tablet Take 2.5 mg by mouth daily Yes Historical Provider, lisinopril (PRINIVIL;ZESTRIL) 20 MG tablet Take 20 mg by mouth daily Yes Historical Provider, metoprolol tartrate (LOPRESSOR) 25 MG tablet Take 25 mg by mouth daily Yes Historical Provider, Physical Exam General: No acute distress CV: Regular rate Pulm: Equal breath sounds bilaterally, right chest tube to suction, serosanguinous drainage, no airleak Abd: Soft, NT, ND Neuro: Awake, alert, oriented Diet: DIET GENERAL; Problem List: Principal Problem: Parapneumonic effusion Resolved Problems: * No resolved hospital problems. * Assessment and Plan: 80-year-old male with right-sided empyema s/p thoracentesis 09/11, IR pigtail catheter placement 09/12, and tPA administration 09/13, 09/14, 09/16, and 09/17. S/p Right VATS with pleural biopsy and washout09/19. - Pain control with scheduled Tylenol. Oxycodone / morphine PRN. - Continue ceftriaxone / Flagyl per ID - Pleural fluid cx 09/12: Strep intermedius / Anaerobic gram negative bacillus. - Blood cx 09/11: NGTD. - Pleural fluid cytology 09/13: Inflammatory process. No malignant cells. - OR Right lower lobe abscess cx 09/19: No growth to date. - Await ID recommendations for antibiotic regimen at discharge. - Plan for PICC placement today in anticipation of discharge - CXR stable this morning. - Right Ladonna drain to suction. Ok for water seal with ambulation. Potential Ladonna drain removal today. - Scheduled DuoNebs. - IS / Acapella. - Hx Aflutter. Plan to resume Eliquis today. - Regular diet as tolerated - Scheduled bowel regimen: Colace / Miralax - MYRON stable. Cr 1.85 from 1.73. Nephrology following. - DVT ppx: SCDs / Heparin - Activity as tolerated / Ambulate. - PT/OT. Recommend home with assist PRN / Outpatient PT. - Plan for discharge with home care with medically appropriate Kylah Liz MD Disclaimers: INFORMED CONSENT: The nature and purpose of the proposed treatment and/or procedure have been discussed. The risks and benefits of the proposed treatment or procedures have been reviewed. Alternatives have been reviewed in addition to the risks and benefits of not receiving treatments or undergoingprocedures. Pursuant to this discussion, the patient agrees to undergo the proposed treatment or procedure. Captured images seen in this note are not a substitute for a comprehensive interpretation of the entire data set as reflected by the interpreting physician with regard to radiology, echocardiography,and other diagnostic images. This note may have been dictated using [facility] Practice Edition 2.6 and/or [employer] Voice Recognition Feature. The document was proofread; however, unrecognized voice recognition dinkey engine mechanic errors may be present. Associated attestation - Kassandra Davidson MD - 09/21/2020 7:15 AM EDT DOS: 09/21/2020 I personally performed a face to face diagnostic evaluation on this patient. I agree with the findings and plan of care as documented by the resident/ASSISTANT STORE MANAGER OPERATIONS/ENTERPRISE MANAGER/PA, unless otherwise noted. Kassandra Davidson MD Cardiothoracic Surgery * Orlando Goetz MD - 09/20/2020 7:10 PM EDT [facility] Progress Note SUBJECTIVE: Patient denies current CP, SOB. Confused 'pain 01/06 In ICU Right VATS with pleural biopsy and washout Medications Scheduled Meds: heparin (porcine) 5,000 Units Subcutaneous 3 times per day balsalazide 2,250 mg Oral BID ipratropium-albuterol 1 ampule Inhalation 4x daily polyethylene glycol 17 g Oral Daily docusate sodium 100 mg Oral BID cefTRIAXone (ROCEPHIN) IV 1,000 mg Intravenous Q24H metroNIDAZOLE 500 mg Oral 2 times per day acetaminophen 1,000 mg Oral 3 times per day thiamine mononitrate 100 mg Oral Daily sodium chloride flush 10 mL Intravenous 2 times per day atorvastatin 40 mg Oral Nightly levothyroxine 50 mcg Oral Daily metoprolol tartrate 25 mg Oral Daily pantoprazole 40 mg Oral Daily Continuous Infusions: Prn Meds : oxyCODONE OR oxyCODONE, ondansetron, morphine OR morphine, LORazepam, sodium chloride flush, benzonatate Home Meds: No current facility-administered medications on file prior to encounter. Current Outpatient Medications on File Prior to Encounter Medication Sig Dispense Refill atorvastatin (LIPITOR) 40 MG tablet Take 40 mg by mouth daily vitamin B-12 (CYANOCOBALAMIN) 500 MCG tablet Take 500 mcg by mouth daily ferrous sulfate (IRON 325) 325 (65 Fe) MG tablet Take 325 mg by mouth daily (with breakfast) doxycycline hyclate (VIBRA-TABS) 100 MG tablet Take 100 mg by mouth daily levothyroxine (SYNTHROID) 50 MCG tablet Take 50 mcg by mouth Daily zinc gluconate 50 MG tablet Take 50 mg by mouth daily amiodarone (CORDARONE) 200 MG tablet Take 200 mg by mouth daily aspirin 81 MG EC tablet Take 81 mg by mouth daily pantoprazole (PROTONIX) 40 MG tablet Take 40 mg by mouth daily balsalazide (COLAZAL) 750 MG capsule Take 750 mg by mouth daily apixaban (ELIQUIS) 2.5 MG TABS tablet Take 2.5 mg by mouth daily lisinopril (PRINIVIL;ZESTRIL) 20 MG tablet Take 20 mg by mouth daily metoprolol tartrate (LOPRESSOR) 25 MG tablet Take 25 mg by mouth daily OBJECTIVE Physical BP (!) 119/50 Pulse 76 Temp 97 F (36.1 C) (Axillary) Resp 18 Ht 5' 11 (1.803 m) Wt 189 lb 9.5 oz (86 kg) SpO2 98% BMI 26.44 kg/m 24HR INTAKE/OUTPUT: Intake/Output Summary (Last 24 hours) at 09/20/20201909 Last data filed at 09/20/2020 1800 Gross per 24 hour Intake 2555 ml Output 190 ml Net 2365 ml General: confused HEENT: Atraumatic, normocephalic Eyes: EOMI Chest: +CT tube Cardiac: S1 S2 RR, no murmurs, gallops or rubs Abdomen: Soft, non-tender, BS audible. Extremities: No lower extremity edema Data Last 3 CMP: Recent Labs 09/18/20 0014 09/19/20 0142 09/20/20 0000 NA 131* 133* 131* K 4.9 4.8 5.2* CL 106 106 106 CO2 20* 21* 18* BUN 50* 44* 40* CREATININE 1.80* 1.79* 1.73* CALCIUM 8.5 8.6 8.7 LABALBU 2.1* -- -- Last 3 CBC: Recent Labs 09/18/20 0014 09/19/20 0142 09/20/20 0000 WBC 10.6 6.4 7.6 RBC 3.00* 2.84* 2.70* HGB 9.9* 9.4* 8.9* HCT 30.0* 28.3* 27.4* MCV 99.9* 99.9* 101.5* MCH 33.0 33.2 33.1 MCHC 33.0 33.3 32.5 RDW 14.5 14.8* 15.2* PLT 155 155 152 MPV 8.8 7.8 8.6 ASSESSMENT Patient Active Problem List Diagnosis Date Noted Parapneumonic effusion 09/12/2020 ASSESSMENT/PLAN: 1. MYRON- unknown Scr baseline (? 1.8-1.9mg/dl), Scr improved, most recent trend 1.99->1.8-->1.79->1.73 mg/dl -good UO over past 24hr measuring period per EMR -Right VATS with pleural biopsy and washout -IVF NS 75 ml/hr 2. Hyponatremia- mild, improved at 133 this AM, monitor 3. Anemia- Hgb at 8.9 this AM, monitor. Transfuse PRN per primary Orlando Goetz MD 09/20/2020 7:10 PM * Lima Obrien OT - 09/20/2020 12:30 PM EDT Occupational Therapy Occupational Therapy Initial Assessment Date: 09/20/2020 Patient Name: Amaury Blank : 1940 Date of Service: 09/20/2020 Discharge Recommendations: Home with assist PRN This provider wore an N95, goggles, and gloves during the treatment session. Assessment Performance deficits / Impairments: Decreased endurance Assessment: OT eval completed, pt admitted with parapneumonic effusion, presents with decreased endurance however pt reporting he is otherwise feeling close to baseline. Pt completed LE dressing and toileting with supervision for safety. Pt with no skilled OT needs at this time, recommend home withassist PRN. Prognosis: Good Decision Making: Low Complexity OT Education: OT Role;Plan of Care REQUIRES OT FOLLOW UP: No Activity Tolerance Activity Tolerance: Patient Tolerated treatment well Safety Devices Safety Devices in place: Yes Type of devices: Left in bed;Call light within reach;Nurse notified(pt refused gait belt) Patient Diagnosis(es): The encounter diagnosis was Parapneumonic effusion. has a past medical history of Atrial fibrillation/flutter (HCC), CAD (coronary artery disease), History of GI bleed, Hypertension, and UC (ulcerative colitis) ([facility]). has a past surgical history that includes Coronary artery bypass graft; CT GUIDED PLEURAL DRAINAGE W CATH PERC (09/12/2020); and other surgical history (Right, 09/19/2020). Restrictions Restrictions/Precautions Restrictions/Precautions: Up as Tolerated Required Braces or Orthoses?: No Position Activity Restriction Other position/activity restrictions: chest tube Subjective General Chart Reviewed: Yes Patient assessed for rehabilitation services?: Yes Additional Pertinent Hx: s/p R VATS with pleural biopsy and washout Family / Caregiver Present: No Diagnosis: parapneumonic effusion Subjective Subjective: Pt supine in bed upon entry, agreeable to therapy Patient Currently in Pain: Denies Vital Signs Pulse: 70 BP: (!) 130/49 MAP (mmHg): 73 Patient Currently in Pain: Denies Oxygen Therapy SpO2: 93 % Social/Functional History Social/Functional History Lives With: Spouse Type of Home: House Home Layout: One level, Laundry in basement, Work area in basement Home Access: Stairs to enter without rails Entrance Stairs - Number of Steps: 2 Bathroom Shower/Tub: Tub/Shower unit Bathroom Toilet: Standard Bathroom Equipment: Grab bars in shower, Shower chair Bathroom Accessibility: Accessible Home Equipment: Rolling walker, 4 wheeled walker Receives Help From: Family ADL Assistance: Independent Homemaking Assistance: Independent Homemaking Responsibilities: Yes Ambulation Assistance: Independent Transfer Assistance: Independent Active Gear Nicker: Yes Mode of Transportation: Car Occupation: Retired Additional Comments: NA Objective Vision: Within Functional Limits Hearing: Exceptions to WFL Hearing Exceptions: Hard of hearing/hearing concerns Orientation Overall Orientation Status: Within Functional Limits Observation/Palpation Posture: Fair Balance Sitting Balance: Supervision Standing Balance: Supervision Functional Mobility Functional - Mobility Device: Rolling Walker Activity: To/from bathroom Assist Level: Supervision Toilet Transfers Toilet - Technique: Ambulating Equipment Used: Standard toilet Toilet Transfer: Supervision ADL LE Dressing: Modified independent Toileting: Modified independent Tone RUE RUE Tone: Normotonic Tone LUE LUE Tone: Normotonic Coordination Movements Are Fluid And Coordinated: Yes Bed mobility Supine to Sit: Minimal assistance Sit to Supine: Contact guard assistance Comment: HOB elevated Transfers Sit to stand: Stand by assistance Stand to sit: Stand by assistance Transfer Comments: SBA progressing to supervision Cognition Overall Cognitive Status: WFL Sensation Overall Sensation Status: WFL LUE AROM (degrees) LUE AROM : WFL RUE AROM (degrees) RUE AROM : WFL LUE Strength Gross LUE Strength: WFL RUE Strength Gross RUE Strength: WFL Plan Plan Plan Comment: Discharge OT OutComes Score [facility] Daily Activity Inpatient How much help for putting on and taking off regular lower body clothing?: None How much help for Bathing?: None How much help for Toileting?: None How much help for putting on and taking off regular upper body clothing?: None How much help for taking care of personal grooming?: None How much help for eating meals?: None [facility] Inpatient Daily Activity Raw Score: 24 [facility] Inpatient ADL T-Scale Score : 57.54 ADL Inpatient CMS 0-100% Score: 0 ADL Inpatient CMS G-Code Modifier : CH Goals Therapy Time Individual Concurrent Group Co-treatment Time In 1121 Time Out 1139 Minutes 18 Patient's Occupational Therapy Plan of Care [facility]. Goals and/or treatment plan was established in collaboration with patient/family/other representatives. Lima Obrien OTR/L * Jus Brizuela - 09/20/2020 9:51 AM EDT Physical Therapy Facility/Department: [facility] Re-evaluation NAME: Amaury Blank : 1940 Date of Service: 09/20/2020 Discharge Recommendations: Home with assist PRN, Outpatient PT PT Equipment Recommendations Equipment Needed: No Assessment Body structures, Functions, Activity limitations: Decreased posture Assessment: Pt. displayed good functional mobility without any significant safety concerns noted throughout session. Pt. did display slight difficulty with bed mobility which required Min A due to pt.'s inability to utilize L UE for assistance. Once standing, pt. is displayed ability to ambulate 370 feet and 4 stairs without significant safety concerns. Suspect pt. to be able to safely function within the home after UE restrictions are lifted and with occasional assistance from at home. From a mobility perspective, recommend pt. discharged home with assist PRN, recommend outpatient physical therapy services to improve endurance and implement assisted exercise program. Prognosis: Good Decision Making: Medium Complexity PT Education: Goals;PT Role;Plan of Care;Functional Mobility Training;Gait Training;Home Exercise Program No Skilled PT: Safe to return home REQUIRES PT FOLLOW UP: No Activity Tolerance Activity Tolerance: Patient Tolerated treatment well Patient Diagnosis(es): The encounter diagnosis was Parapneumonic effusion. has a past medical history of Atrial fibrillation/flutter ([facility]), CAD (coronary artery disease), History of GI bleed, Hypertension, and UC (ulcerative colitis) ([facility]). has a past surgical history that includes Coronary artery bypass graft; CT GUIDED PLEURAL DRAINAGE W CATH PERC (09/12/2020); and other surgical history (Right, 09/19/2020). Restrictions Restrictions/Precautions Restrictions/Precautions: Up as Tolerated Required Braces or Orthoses?: No Vision/Hearing Vision: Within Functional Limits Hearing Exceptions: Hard of hearing/hearing concerns Subjective General Chart Reviewed: Yes Patient assessed for rehabilitation services?: Yes Response To Previous Treatment: Not applicable Family / Caregiver Present: No Diagnosis: s/p R VATS with pleural biopsy and washout Follows Commands: Within Functional Limits General Comment Comments: Medical equipment in use: Telemetry, chest tube, IV Subjective Subjective: Pt. denies all pain upon arrival to initial evaluation. Pt. agreeable to PT evaluation.Pt. reports feeling better following surgery compared to two days earlier when he experienced significant fatigue and SOB. Pt. reports no issues with daily mobility at baseline and reports being up to the bathroom twice this morning. Pain Screening Patient Currently in Pain: Denies Vital Signs Patient Currently in Pain: Denies Orientation Orientation Overall Orientation Status: Within Functional Limits Social/Functional History Social/Functional History Lives With: Spouse Type of Home: House Home Layout: One level, Laundry in basement, Work area in basement Home Access: Stairs to enter without rails Entrance Stairs - Number of Steps: 2 Bathroom Shower/Tub: Tub/Shower unit Bathroom Toilet: Standard Bathroom Equipment: Grab bars in shower, Shower chair Bathroom Accessibility: Accessible Home Equipment: Rolling walker, 4 wheeled walker Receives Help From: Family ADL Assistance: Independent Homemaking Assistance: Independent Homemaking Responsibilities: Yes Ambulation Assistance: Independent Transfer Assistance: Independent Active Gear Nicker: Yes Mode of Transportation: Car Occupation: Retired Additional Comments: NA Cognition Cognition Overall Cognitive Status: WFL Objective Observation/Palpation Posture: Fair AROM RLE (degrees) RLE AROM: WFL AROM LLE (degrees) LLE AROM : WFL AROM RUE (degrees) RUE AROM : WFL AROM LUE (degrees) LUE AROM : WFL Strength RLE Strength RLE: WFL Comment: Hip flexion: 3+/5, knee extension/knee flexion: 5/5, ankle DF/PF: 5/5, hip abduction isometrics: 4+/5, Hip adduction isometrics: 4+/5, Hip extension isometrics: 4-/5. All MMT performed in supine position. Strength LLE Strength LLE: WFL Comment: Hip flexion: 3+/5, knee extension/knee flexion: 5/5, ankle DF/PF: 5/5, hip abduction isometrics: 4+/5, Hip adduction isometrics: 4+/5, Hip extension isometrics: 4-/5. All MMT performed in supine position. Strength RUE Comment: Deferred to OT Strength LUE Comment: Deferred to OT Bed mobility Supine to Sit: Minimal assistance Sit to Supine: Minimal assistance Comment: Pt. currently unable to push or pull with L UE due to recent removal of arterial line. Suspect pt. to perform bed mobility at supervision/mod I level with the use of bilateral UE's. Transfers Sit to Stand: Contact guard assistance;2 Person Assistance Stand to sit: Stand by assistance Comment: Pt. had mild difficulty with sit-stand transfer due to inability to use L LE to push off from bed. Suspect less difficulty with transfers with the use of bilateral UE's. Ambulation Ambulation?: Yes WB Status: No restrictions More Ambulation?: No Ambulation 1 Surface: level tile Device: Rolling Walker Assistance: Contact guard assistance Gait Deviations: Slow Kiarra;Decreased step length Distance: 370 feet. Comments: Pt. displayed reduced heel strike at initial contact with foot flat gait pattern. Pt. displayed significantly reduced step length <12 inches. Pt. required verbal cueing to maintain proper upright posture with ambulation. Stairs/Curb Stairs?: Yes Stairs # Steps : 4 Stairs Height: 8 Rails: Left ascending Comment: Pt. was able to negotiate 4 stairs with CGA without instances of instabiliy or LOB. Pt. crossed R arm across body to utilize L ascending hand rail. Balance Posture: Fair Sitting - Static: Good;+ Sitting - Dynamic: Good;+ Standing - Static: Good Standing - Dynamic: Good(No concerns for LOB or fall throughout initial evaluation.) Plan Plan Times per week: 3-5 Plan weeks: 2 weeks Current Treatment Recommendations: Strengthening, Balance Training, Functional Mobility Training, Transfer Training, Stair training, Gait Training, Endurance Training, Positioning, Patient/Caregiver Education & Training, Safety Education & Training, Home Exercise Program Plan Comment: PT disch. Safety Devices Type of devices: Call light within reach, Left in bed Restraints Initially in place: No AM-PAC Score AM-PAC Inpatient Mobility Raw Score : 16 (09/20/20918) AM-PAC Inpatient T-Scale Score : 40.78 (09/20/20918) Mobility Inpatient CMS 0-100% Score: 54.16 (09/20/20918) Mobility Inpatient CMS G-Code Modifier : CK (09/20/20918) Goals Short term goals Time Frame for Short term goals: 2 weeks Short term goal 1: Ambulate 100 feet with modified independence and least restrictive device Short term goal 2: Negotiate a flight of stairs with supervision with left hand rail ascending and a step to pattern Short term goal 3: Scoot/reposition self in bed with modified independence Patient Goals Patient goals : Not stated Therapy Time Individual Concurrent Group Co-treatment Time In 0833 Time Out 0859 Minutes 26 SPT wore N-95 mask and goggles throughout re-evaluation. Re-evaluation observed and assisted by Robby Lovell, PT Jus Brizuela SPT Associated attestation - Robby Lovell, PT - 09/20/2020 1:07 PM EDT Pt was one insisting on not using LUE due to art line. Pt insists on elevating HOB --pt will have at home to assist form flat bed. * Sha Downs MD - 09/20/2020 8:11 AM EDT Progress Note [facility] Patient - Amaury Blank, Age - 80 y.o. 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 B/l infiltrates concern for PNA, community acquired versus aspiration HFpEF Afib MYRON PLAN --pleural fluid cx with strep intermedius + anaerobes --c/w ceftriaxone + flagyl --pleural fluid cytology- no malignant cells --s/p post right VATs, washout and pleural biopsy today- patient had a pleuro alveolar fistula -- f/u pleural biopsy --f/u intra-op abscess cx SUBJECTIVE: ROS with patient/RN unless stated otherwise. S/p right VATs, washout and pleural biopsy yesterday Overnight, patient accidentally pulled the right chest tube out OBJECTIVE VITALS height is 5' 11 (1.803 m) and weight is 189 lb 9.5 oz (86 kg). His oral temperature is 97.8 F (36.6 C). His blood pressure is 156/79 (abnormal) and his pulse is 73. His respiration is 16 and oxygen saturation is 100%. Temp (24hrs), Av.6 F (36.4 C), Min:97.4 F (36.3 C), Max:97.8 F (36.6 C) General Appearance: Tired sleeping HEENT: wnl Neck: Supple Lungs: Clear to auscultation b/l on room air, ladonna drain in place Cardiovascular: RRR Abdomen: Soft NT, ND, BS+ : no CVAT. Neurologic: Alert and oriented x 3 no focal deficits Skin: No rashes Extremities: No edema, No joint inflammation Lines: sites clean MEDICATIONS: ipratropium-albuterol 1 ampule Inhalation 4x daily polyethylene glycol 17 g Oral Daily docusate sodium 100 mg Oral BID balsalazide 750 mg Oral Daily cefTRIAXone (ROCEPHIN) IV 1,000 mg Intravenous Q24H metroNIDAZOLE 500 mg Oral 2 times per day acetaminophen 1,000 mg Oral 3 times per day thiamine mononitrate 100 mg Oral Daily sodium chloride flush 10 mL Intravenous 2 times per day atorvastatin 40 mg Oral Nightly levothyroxine 50 mcg Oral Daily metoprolol tartrate 25 mg Oral Daily pantoprazole 40 mg Oral Daily sodium chloride 75 mL/hr at 09/19/20 1040 LABS: CBC: Recent Labs 09/18/20 0014 09/19/20 0142 09/20/20 0000 WBC 10.6 6.4 7.6 HGB 9.9* 9.4* 8.9* PLT 155 155 152 BMP: Recent Labs 09/18/20 0014 09/19/20 0142 09/20/20 0000 NA 131* 133* 131* K 4.9 4.8 5.2* CL 106 106 106 CO2 20* 21* 18* BUN 50* 44* 40* CREATININE 1.80* 1.79* 1.73* GLUCOSE 112* 106* 186* Hepatic: Recent Labs 09/18/20 0014 LABALBU 2.1* Lactic Acid: No results for input(s): LACTA in the last 72 hours. MICROBIOLOGY: 09/12 R chest abscess: strep intermedius and anaerobic gnb 09/12 legionella/strep negative 09/11 blood cx: no growth IMAGING: reviewed Sha Sy ID Pager: [phone] 09/20/2020 8:11 AM * Kylah Liz MD - 09/20/2020 4:31 AM EDT Images from the original note were not included. Cardiothoracic Surgery Progress Note 09/20/2020 8:50 AM Subjective: Admit Date: 09/11/2020 PCP: No primary care provider on file. Clinical Course IR Right pigtail catheter placement 09/12 tPA 4mg administered 09/13 CT Chest 09/13 - Significant improvement in right pleural effusion. No loculation. tPA 4mg administered 09/14 tPA 2mg administered 09/16 tPA 2mg administered 09/17 Right VATS with pleural biopsy and washout 09/19 Interval History Patient inadvertently pulled out right chest tube overnight. Ladonna drain remains in place. Output 240cc / 24H. Afebrile. VSS. Maintaining SpO2 on room air. Pain well controlled this morning. Denies dyspnea. Tolerating diet. PO intake 600cc / 24H. No nausea or vomiting. Voiding without difficulty. Not yet out of bed to chair or ambulatory since surgery. Objective: Vitals: Temp (24hrs), Av.6 F (36.4 C), Min:97.4 F (36.3 C), Max:97.8 F (36.6 C) BP (!) 156/79 Pulse 73 Temp 97.8 F (36.6 C) (Oral) Resp 16 Ht 5' 11 (1.803 m) Wt 189 lb 9.5 oz (86 kg) SpO2 92% BMI 26.44 kg/m I/O: Date 09/20/20 0000 - 09/20/20 2359 Shift [id number] 6970-4897 3801-6701 24 Hour Total INTAKE P.O.(mL/kg/hr) 200(0.3) 200 I.V.(mL/kg) 704(8.2) 704(8.2) Shift Total(mL/kg) 904(10.5) 904(10.5) OUTPUT Chest Tube 70 70 Shift Total(mL/kg) 70(0.8) 70(0.8) Weight (kg) 86 86 86 86 Patient Vitals for the past 96 hrs (Last 3 readings): Weight 03/24/21 0600 189 lb 9.5 oz (86 kg) Labs and Diagnostics: (reviewed in EMR) BMP: Recent Labs 09/18/20 0014 09/19/20 0142 09/20/20 0000 NA 131* 133* 131* K 4.9 4.8 5.2* CL 106 106 106 CO2 20* 21* 18* BUN 50* 44* 40* CREATININE 1.80* 1.79* 1.73* GLUCOSE 112* 106* 186* . CBC: Recent Labs 09/19/20 0142 09/20/20 0000 WBC 6.4 7.6 HGB 9.4* 8.9* PLT 155 152 INR: Lab Results Component Value Date PROTIME 11.8 09/19/2020 INR 1.1 09/19/2020 Medications: Scheduled Meds: ipratropium-albuterol 1 ampule Inhalation 4x daily polyethylene glycol 17 g Oral Daily docusate sodium 100 mg Oral BID balsalazide 750 mg Oral Daily cefTRIAXone (ROCEPHIN) IV 1,000 mg Intravenous Q24H metroNIDAZOLE 500 mg Oral 2 times per day acetaminophen 1,000 mg Oral 3 times per day thiamine mononitrate 100 mg Oral Daily sodium chloride flush 10 mL Intravenous 2 times per day atorvastatin 40 mg Oral Nightly levothyroxine 50 mcg Oral Daily metoprolol tartrate 25 mg Oral Daily pantoprazole 40 mg Oral Daily Continuous Infusions: sodium chloride 75 mL/hr at 09/19/20 1040 Home Meds: Prior to Admission medications Medication Sig Start Date End Date Taking? Authorizing Provider oxyCODONE-acetaminophen (PERCOCET) 5-325 MG per tablet Take 1 tablet by mouth every 6 hours as needed for Pain for up to 7 days. Intended supply: 7 days. Take lowest dose possible to manage pain 09/19/20 09/26/20 Yes Kylah Liz MD polyethylene glycol (GLYCOLAX) 17 GM/SCOOP powder Take 17 g by mouth daily as needed (Constipation)09/19/20 10/19/20 Yes Kylah Liz MD atorvastatin (LIPITOR) 40 MG tablet Take 40 mg by mouth daily Yes Historical Provider, vitamin B-12 (CYANOCOBALAMIN) 500 MCG tablet Take 500 mcg by mouth daily Yes Historical Provider, ferrous sulfate (IRON 325) 325 (65 Fe) MG tablet Take 325 mg by mouth daily (with breakfast) Yes Historical Provider, doxycycline hyclate (VIBRA-TABS) 100 MG tablet Take 100 mg by mouth daily Yes Historical Provider, levothyroxine (SYNTHROID) 50 MCG tablet Take 50 mcg by mouth Daily Yes Historical Provider, zinc gluconate 50 MG tablet Take 50 mg by mouth daily Yes Historical Provider, amiodarone (CORDARONE) 200 MG tablet Take 200 mg by mouth daily Yes Historical Provider, aspirin 81 MG EC tablet Take 81 mg by mouth daily Yes Historical Provider, pantoprazole (PROTONIX) 40 MG tablet Take 40 mg by mouth daily Yes Historical Provider, balsalazide (COLAZAL) 750 MG capsule Take 750 mg by mouth daily Yes Historical Provider, apixaban (ELIQUIS) 2.5 MG TABS tablet Take 2.5 mg by mouth daily Yes Historical Provider, lisinopril (PRINIVIL;ZESTRIL) 20 MG tablet Take 20 mg by mouth daily Yes Historical Provider, metoprolol tartrate (LOPRESSOR) 25 MG tablet Take 25 mg by mouth daily Yes Historical Provider, Physical Exam General: No acute distress CV: Regular rate Pulm: Equal breath sounds bilaterally, right chest tube to suction, serosanguinous drainage, no airleak Abd: Soft, NT, ND Neuro: Awake, alert, oriented Diet: DIET GENERAL; Problem List: Principal Problem: Parapneumonic effusion Resolved Problems: * No resolved hospital problems. * Assessment and Plan: 80-year-old male with right-sided empyema s/p thoracentesis 09/11, IR pigtail catheter placement 09/12, and tPA administration 09/13, 09/14, 09/16, and 09/17. S/p Right VATS with pleural biopsy and washout09/19. - Pain control with scheduled Tylenol. Oxycodone / morphine PRN. - Pain management following. Appreciate recommendations. - Continue ceftriaxone / Flagyl per ID - Pleural fluid cx 09/12: Strep intermedius / Anaerobic gram negative bacillus. - Blood cx 09/11: NGTD. - Pleural fluid cytology 09/13: Inflammatory process. No malignant cells. - OR Right lower lobe abscess cx 09/19: No growth to date. - CXR stable this morning. - Right Ladonna drain to suction. Ok for water seal with ambulation. - Scheduled DuoNebs. - IS / Acapella. - Hx Aflutter. Continue to hold Eliquis. Last dose 09/08. Plan to resume tomorrow. - Regular diet as tolerated - Saline lock IVF - Scheduled bowel regimen: Colace / Miralax - MYRON improving. Cr 1.73 from 1.79. Nephrology following. - DVT ppx: SCDs / Heparin - Activity as tolerated / Ambulate. PT/OT. Kylah Liz MD Disclaimers: INFORMED CONSENT: The nature and purpose of the proposed treatment and/or procedure have been discussed. The risks and benefits of the proposed treatment or procedures have been reviewed. Alternatives have been reviewed in addition to the risks and benefits of not receiving treatments or undergoingprocedures. Pursuant to this discussion, the patient agrees to undergo the proposed treatment or procedure. Captured images seen in this note are not a substitute for a comprehensive interpretation of the entire data set as reflected by the interpreting physician with regard to radiology, echocardiography,and other diagnostic images. This note may have been dictated using [facility] Practice Edition 2.6 and/or [employer] Voice Recognition Feature. The document was proofread; however, unrecognized voice recognition dinkey engine mechanic errors may be present. Associated attestation - Kassandra Davidson MD - 09/20/2020 11:56 AM EDT DOS: 09/20/2020 I personally performed a face to face diagnostic evaluation on this patient. I agree with the findings and plan of care as documented by the resident/ASSISTANT STORE MANAGER OPERATIONS/ENTERPRISE MANAGER/PA, unless otherwise noted. Kassandra Davidson MD Cardiothoracic Surgery * Adelaida Frankel MD - 09/20/2020 3:18 AM EDT Yesterday evening, the patient inadvertently pulled his right chest tube nearly all the way out. The sentinel hole was outside the chest. Per RN, there was no air leak prior to this event. The ladonna drain remained in position. Discussed with Dr. Russo and decision made to remove the chest tube while leaving the ladonna drain to suction. Adelaida Frankel MD General Surgery PGY-4 Pager [phone] * Orlando Goetz MD - 09/19/2020 4:03 PM EDT [facility] Progress Note SUBJECTIVE: Patient denies current CP, SOB. Confused 'pain /10 In ICU Right VATS with pleural biopsy and washout Medications Scheduled Meds: ipratropium-albuterol 1 ampule Inhalation 4x daily polyethylene glycol 17 g Oral Daily docusate sodium 100 mg Oral BID balsalazide 750 mg Oral Daily cefTRIAXone (ROCEPHIN) IV 1,000 mg Intravenous Q24H metroNIDAZOLE 500 mg Oral 2 times per day acetaminophen 1,000 mg Oral 3 times per day thiamine mononitrate 100 mg Oral Daily sodium chloride flush 10 mL Intravenous 2 times per day atorvastatin 40 mg Oral Nightly levothyroxine 50 mcg Oral Daily metoprolol tartrate 25 mg Oral Daily pantoprazole 40 mg Oral Daily Continuous Infusions: sodium chloride 75 mL/hr at 09/19/20 1040 Prn Meds : ondansetron, oxyCODONE OR oxyCODONE, morphine OR morphine, LORazepam, sodium chloride flush, benzonatate Home Meds: No current facility-administered medications on file prior to encounter. Current Outpatient Medications on File Prior to Encounter Medication Sig Dispense Refill atorvastatin (LIPITOR) 40 MG tablet Take 40 mg by mouth daily vitamin B-12 (CYANOCOBALAMIN) 500 MCG tablet Take 500 mcg by mouth daily ferrous sulfate (IRON 325) 325 (65 Fe) MG tablet Take 325 mg by mouth daily (with breakfast) doxycycline hyclate (VIBRA-TABS) 100 MG tablet Take 100 mg by mouth daily levothyroxine (SYNTHROID) 50 MCG tablet Take 50 mcg by mouth Daily zinc gluconate 50 MG tablet Take 50 mg by mouth daily amiodarone (CORDARONE) 200 MG tablet Take 200 mg by mouth daily aspirin 81 MG EC tablet Take 81 mg by mouth daily pantoprazole (PROTONIX) 40 MG tablet Take 40 mg by mouth daily balsalazide (COLAZAL) 750 MG capsule Take 750 mg by mouth daily apixaban (ELIQUIS) 2.5 MG TABS tablet Take 2.5 mg by mouth daily lisinopril (PRINIVIL;ZESTRIL) 20 MG tablet Take 20 mg by mouth daily metoprolol tartrate (LOPRESSOR) 25 MG tablet Take 25 mg by mouth daily OBJECTIVE Physical BP 134/60 Pulse 87 Temp 97.5 F (36.4 C) (Oral) Resp 17 Ht 5' 11 (1.803 m) Wt 191 lb 4.8 oz (86.8 kg) SpO2 97% BMI 26.68 kg/m 24HR INTAKE/OUTPUT: Intake/Output Summary (Last 24 hours) at 09/19/2020 1603 Last data filed at 09/19/2020 1300 Gross per 24 hour Intake 2150 ml Output 375 ml Net 1775 ml General: confused HEENT: Atraumatic, normocephalic Eyes: EOMI Chest: +CT tube Cardiac: S1 S2 RR, no murmurs, gallops or rubs Abdomen: Soft, non-tender, BS audible. Extremities: No lower extremity edema Data Last 3 CMP: Recent Labs 09/18/20 0014 09/19/20 0142 NA 131* 133* K 4.9 4.8 CL 106 106 CO2 20* 21* BUN 50* 44* CREATININE 1.80* 1.79* CALCIUM 8.5 8.6 LABALBU 2.1* -- Last 3 CBC: Recent Labs 09/17/20 1020 09/18/20 0014 09/19/20 0142 WBC 8.0 10.6 6.4 RBC 3.28* 3.00* 2.84* HGB 10.8* 9.9* 9.4* HCT 33.2* 30.0* 28.3* MCV 101.2* 99.9* 99.9* MCH 33.0 33.0 33.2 MCHC 32.6 33.0 33.3 RDW 14.6* 14.5 14.8* PLT 161 155 155 MPV 8.7 8.8 7.8 ASSESSMENT Patient Active Problem List Diagnosis Date Noted Parapneumonic effusion 09/12/2020 ASSESSMENT/PLAN: 1. MYRON- unknown Scr baseline (? 1.8-1.9mg/dl), Scr improved, most recent trend 1.99->1.8-->1.79 mg/dl -minimal UO over past 24hr measuring period per EMR -Right VATS with pleural biopsy and washout -IVF NS 75 ml/hr 2. Hyponatremia- mild, improved at 133 this AM, monitor 3. Anemia- Hgb at 9.4 this AM, monitor. Transfuse PRN per primary Orlando Goetz MD 09/19/2020 4:03 PM * Sha Downs MD - 09/19/2020 10:47 AM EDT Progress Note [facility] Patient - Amaury Blank, Age - 80 y.o. 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 B/l infiltrates concern for PNA, community acquired versus aspiration HFpEF Afib MYRON PLAN --pleural fluid cx with strep intermedius + anaerobes --c/w ceftriaxone + flagyl --pleural fluid cytology- no malignant cells --s/p post right VATs, washout and pleural biopsy today- patient had a pleuro alveolar fistula -- f/u pleural biopsy --f/u intra-op abscess cx SUBJECTIVE: ROS with patient/RN unless stated otherwise. S/p right VATs, washout and pleural biopsy today Patient reports unable to move- likely post anesthesia OBJECTIVE VITALS height is 5' 11 (1.803 m) and weight is 191 lb 4.8 oz (86.8 kg). His temporal temperature is 97.4 F (36.3 C). His blood pressure is 119/49 (abnormal) and his pulse is 76. His respiration is 16 and oxygen saturation is 95%. Temp (24hrs), Av.1 F (36.7 C), Min:97.4 F (36.3 C), Max:98.9 F (37.2 C) General Appearance: Alert, NAD HEENT: wnl Neck: Supple Lungs: Clear to auscultation b/l on room air, right chest tube draining serosanguinous fluid Cardiovascular: RRR Abdomen: Soft NT, ND, BS+ : no CVAT. No koenig Neurologic: Alert and oriented x 3 no focal deficits Skin: No rashes Extremities: No edema, No joint inflammation Lines: sites clean MEDICATIONS: [AUG Hold] balsalazide 750 mg Oral Daily [Aug] cefTRIAXone (ROCEPHIN) IV 1,000 mg Intravenous Q24H [Aug] metroNIDAZOLE 500 mg Oral 2 times per day [Aug] ipratropium-albuterol 1 ampule Inhalation TID [Aug] acetaminophen 1,000 mg Oral 3 times per day [Aug] thiamine mononitrate 100 mg Oral Daily [Aug] sodium chloride flush 10 mL Intravenous 2 times per day [Aug] atorvastatin 40 mg Oral Nightly [Aug] levothyroxine 50 mcg Oral Daily [Aug] metoprolol tartrate 25 mg Oral Daily [Aug] pantoprazole 40 mg Oral Daily [Aug] heparin (porcine) 5,000 Units Subcutaneous 3 times per day [Aug] sodium chloride 75 mL/hr at 09/18/20 2336 LABS: CBC: Recent Labs 09/17/20 1020 09/18/20 0014 09/19/20 0142 WBC 8.0 10.6 6.4 HGB 10.8* 9.9* 9.4* PLT 161 155 155 BMP: Recent Labs 09/18/20 0014 09/19/20 0142 NA 131* 133* K 4.9 4.8 CL 106 106 CO2 20* 21* BUN 50* 44* CREATININE 1.80* 1.79* GLUCOSE 112* 106* Hepatic: Recent Labs 09/18/20 0014 LABALBU 2.1* Lactic Acid: No results for input(s): LACTA in the last 72 hours. MICROBIOLOGY: 09/12 R chest abscess: strep intermedius and anaerobic gnb 09/12 legionella/strep negative 09/11 blood cx: no growth IMAGING: reviewed Sha Downs MD [facility] Pager: [phone] 09/19/2020 10:47 AM * Kylah Liz MD - 09/19/2020 4:28 AM EDT Images from the original note were not included. Cardiothoracic Surgery Progress Note 09/19/2020 12:46 PM Subjective: Admit Date: 09/11/2020 PCP: No primary care provider on file. Clinical Course IR Right pigtail catheter placement 09/12 tPA 4mg administered 09/13 CT Chest 09/13 - Significant improvement in right pleural effusion. No loculation. tPA 4mg administered 09/14 tPA 2mg administered 09/16 tPA 2mg administered 09/17 Right VATS with pleural biopsy and washout 09/19 Interval History S/p Right VATS with pleural biopsy and washout this morning. Afebrile. Remains in Aflutter. VSS. Maintaining SpO2 on room air. Objective: Vitals: Temp (24hrs), Av F (36.7 C), Min:97.4 F (36.3 C), Max:98.9 F (37.2 C) BP (!) 120/53 Pulse 59 Temp 97.5 F (36.4 C) (Oral) Resp 15 Ht 5' 11 (1.803 m) Wt 191 lb 4.8 oz (86.8 kg) SpO2 93% BMI 26.68 kg/m I/O: Date 09/19/20 0000 - 09/19/20 2359 Shift 0564-7900 3204-5002 0082-2263 24 Hour Total INTAKE I.V.(mL/kg) 750(8.6) 800(9.2) 1550(17.9) Shift Total(mL/kg) 750(8.6) 800(9.2) 1550(17.9) OUTPUT Blood(mL/kg) 100(1.2) 100(1.2) Chest Tube 70 70 140 Shift Total(mL/kg) 70(0.8) 170(2) 240(2.8) Weight (kg) 86.8 86.8 86.8 86.8 Patient Vitals for the past 96 hrs (Last 3 readings): Weight 09/16/20 0557 191 lb 4.8 oz (86.8 kg) Labs and Diagnostics: (reviewed in EMR) BMP: Recent Labs 09/18/20 0014 09/19/20 0142 NA 131* 133* K 4.9 4.8 CL 106 106 CO2 20* 21* BUN 50* 44* CREATININE 1.80* 1.79* GLUCOSE 112* 106* . CBC: Recent Labs 09/18/20 0014 09/19/20 0142 WBC 10.6 6.4 HGB 9.9* 9.4* PLT 155 155 INR: Lab Results Component Value Date PROTIME 11.8 09/19/2020 INR 1.1 09/19/2020 Medications: Scheduled Meds: ipratropium-albuterol 1 ampule Inhalation 4x daily polyethylene glycol 17 g Oral Daily docusate sodium 100 mg Oral BID balsalazide 750 mg Oral Daily cefTRIAXone (ROCEPHIN) IV 1,000 mg Intravenous Q24H metroNIDAZOLE 500 mg Oral 2 times per day acetaminophen 1,000 mg Oral 3 times per day thiamine mononitrate 100 mg Oral Daily sodium chloride flush 10 mL Intravenous 2 times per day atorvastatin 40 mg Oral Nightly levothyroxine 50 mcg Oral Daily metoprolol tartrate 25 mg Oral Daily pantoprazole 40 mg Oral Daily Continuous Infusions: HYDROmorphone sodium chloride 75 mL/hr at 09/19/20 1040 Home Meds: Prior to Admission medications Medication Sig Start Date End Date Taking? Authorizing Provider oxyCODONE-acetaminophen (PERCOCET) 5-325 MG per tablet Take 1 tablet by mouth every 6 hours as needed for Pain for up to 7 days. Intended supply: 7 days. Take lowest dose possible to manage pain 09/19/20 09/26/20 Yes Kylah Liz MD polyethylene glycol (GLYCOLAX) 17 GM/SCOOP powder Take 17 g by mouth daily as needed (Constipation)09/19/20 10/19/20 Yes Kylah Liz MD atorvastatin (LIPITOR) 40 MG tablet Take 40 mg by mouth daily Yes Historical Provider, vitamin B-12 (CYANOCOBALAMIN) 500 MCG tablet Take 500 mcg by mouth daily Yes Historical Provider, ferrous sulfate (IRON 325) 325 (65 Fe) MG tablet Take 325 mg by mouth daily (with breakfast) Yes Historical Provider, doxycycline hyclate (VIBRA-TABS) 100 MG tablet Take 100 mg by mouth daily Yes Historical Provider, levothyroxine (SYNTHROID) 50 MCG tablet Take 50 mcg by mouth Daily Yes Historical Provider, zinc gluconate 50 MG tablet Take 50 mg by mouth daily Yes Historical ProviderMD amiodarone (CORDARONE) 200 MG tablet Take 200 mg by mouth daily Yes Historical Provider, aspirin 81 MG EC tablet Take 81 mg by mouth daily Yes Historical Provider, pantoprazole (PROTONIX) 40 MG tablet Take 40 mg by mouth daily Yes Historical Provider, balsalazide (COLAZAL) 750 MG capsule Take 750 mg by mouth daily Yes Historical Provider, apixaban (ELIQUIS) 2.5 MG TABS tablet Take 2.5 mg by mouth daily Yes Historical Provider, lisinopril (PRINIVIL;ZESTRIL) 20 MG tablet Take 20 mg by mouth daily Yes Historical Provider, metoprolol tartrate (LOPRESSOR) 25 MG tablet Take 25 mg by mouth daily Yes Historical Provider, Physical Exam General: No acute distress CV: Regular rate Pulm: Equal breath sounds bilaterally, right chest tube and Ladonna drain to suction, serosanguinous drainage, no air leak Abd: Soft, NT, ND Neuro: Awake, alert, oriented Diet: DIET GENERAL; Problem List: Principal Problem: Parapneumonic effusion Resolved Problems: * No resolved hospital problems. * Assessment and Plan: 80-year-old male with right-sided empyema s/p thoracentesis 09/11, IR pigtail catheter placement 09/12, and tPA administration 09/13, 09/14, 09/16, and 09/17. S/p Right VATS with pleural biopsy and washout09/19. - Pain control with scheduled Tylenol / Dilaudid MEDICAL OPERATIONS SUPERVISOR. - Pain management following. Appreciate recommendations. - Continue ceftriaxone / Flagyl per ID - Pleural fluid cx 09/12: Strep intermedius / Anaerobic gram negative bacillus. - Blood cx 09/11: NGTD. - Pleural fluid cytology 09/13: Inflammatory process. No malignant cells. - Postop CXR stable - Right chest tube and Ladonna to suction - Scheduled DuoNebs. - IS / Acapella. - Hx Aflutter. Continue to hold Eliquis. Last dose 09/08. - Regular diet as tolerated - NS 75cc/H. Plan to saline lock IVF when PO intake adequate. - Scheduled bowel regimen: Colace / Miralax - MYRON improving. Cr 1.79 from 1.8. Nephrology following. - DVT ppx: SCDs. Plan to resume heparin 09/20. - Activity as tolerated / Ambulate. PT/OT. Kylah Liz MD Disclaimers: INFORMED CONSENT: The nature and purpose of the proposed treatment and/or procedure have been discussed. The risks and benefits of the proposed treatment or procedures have been reviewed. Alternatives have been reviewed in addition to the risks and benefits of not receiving treatments or undergoingprocedures. Pursuant to this discussion, the patient agrees to undergo the proposed treatment or procedure. Captured images seen in this note are not a substitute for a comprehensive interpretation of the entire data set as reflected by the interpreting physician with regard to radiology, echocardiography,and other diagnostic images. This note may have been dictated using [facility] [employer] Practice Edition 2.6 and/or [employer] Voice Recognition Feature. The document was proofread; however, unrecognized voice recognition dinkey engine mechanic errors may be present. Associated attestation - Kassandra Davidson MD - 09/20/2020 7:32 AM EDT DOS: 09/19/20 I personally performed a face to face diagnostic evaluation on this patient. I agree with the findings and plan of care as documented by the resident/ASSISTANT STORE MANAGER OPERATIONS/ENTERPRISE MANAGER/PA, unless otherwise noted. Kassandra Davidson MD Cardiothoracic Surgery * Sha Downs MD - 09/18/2020 5:04 PM EDT Progress Note [facility] Patient - Amaury Blank, Age - 80 y.o. - 1940 Room Number - [id number] [id number] Date of Admission - 09/11/2020 8:15 PM ASSESSMENT Complicated parapneumonic effusion with concern for empyema s/p thoracocentesis + drain placement, cx growing strep intermedius + anaerobes. B/l infiltrates concern for PNA, community acquired versus aspiration HFpEF Afib MYRON PLAN --pleural fluid cx with strep intermedius + anaerobes --c/w ceftriaxone + flagyl --pleural fluid cytology- no malignant cells --remains with persistent pleural effusion with concern for lung entrapment , plans for right VATS possibly tomorrow 09/19 SUBJECTIVE: ROS with patient/RN unless stated otherwise. Doing well. Comfortable at rest on room air, denies sob/cough. CT draining serosang output. Afebrile. Creat improving. Wbc 10.6 OBJECTIVE VITALS height is 5' 11 (1.803 m) and weight is 191 lb 4.8 oz (86.8 kg). His temporal temperature is 98.9 F (37.2 C). His blood pressure is 124/54 (abnormal) and his pulse is 55. His respiration is 15 and oxygen saturation is 97%. Temp (24hrs), Av.7 F (36.5 C), Min:97 F (36.1 C), Max:98.9 F (37.2 C) General Appearance: Alert, NAD HEENT: wnl Neck: Supple Lungs: Clear to auscultation b/l on room air, right chest tube draining serosanguinous fluid Cardiovascular: RRR Abdomen: Soft NT, ND, BS+ : no CVAT. No koenig Neurologic: Alert and oriented x 3 no focal deficits Skin: No rashes Extremities: No edema, No joint inflammation Lines: sites clean MEDICATIONS: cefTRIAXone (ROCEPHIN) IV 1,000 mg Intravenous Q24H metroNIDAZOLE 500 mg Oral 2 times per day ipratropium-albuterol 1 ampule Inhalation TID acetaminophen 1,000 mg Oral 3 times per day thiamine mononitrate 100 mg Oral Daily sodium chloride flush 10 mL Intravenous 2 times per day atorvastatin 40 mg Oral Nightly levothyroxine 50 mcg Oral Daily metoprolol tartrate 25 mg Oral Daily pantoprazole 40 mg Oral Daily heparin (porcine) 5,000 Units Subcutaneous 3 times per day [START ON 09/19/2020] sodium chloride LABS: CBC: Recent Labs 09/17/20 1020 09/18/20 0014 WBC 8.0 10.6 HGB 10.8* 9.9* PLT 161 155 BMP: Recent Labs 09/16/20 0118 09/18/20 0014 NA 130* 131* K 4.1 4.9 CL 106 106 CO2 18* 20* BUN 63* 50* CREATININE 1.99* 1.80* GLUCOSE 132* 112* Hepatic: Recent Labs 09/16/20 0118 09/18/20 0014 PROT 4.5* -- LABALBU -- 2.1* Lactic Acid: No results for input(s): LACTA in the last 72 hours. MICROBIOLOGY: 3/16 R chest abscess: strep intermedius and anaerobic gnb 09/12 legionella/strep negative 09/11 blood cx: no growth IMAGING: reviewed [facility] Pager: [phone] 09/18/2020 5:08 PM I have seen and examined the patient independently. I fully agree with the above note as documentedby AUDI Sy ID Pager: [phone] 09/18/2020 5:54 PM * Orlando Goetz MD - 09/18/2020 3:27 PM EDT [facility] Progress Note SUBJECTIVE: Patient denies current CP, SOB. Medications Scheduled Meds: cefTRIAXone (ROCEPHIN) IV 1,000 mg Intravenous Q24H metroNIDAZOLE 500 mg Oral 2 times per day ipratropium-albuterol 1 ampule Inhalation TID acetaminophen 1,000 mg Oral 3 times per day thiamine mononitrate 100 mg Oral Daily sodium chloride flush 10 mL Intravenous 2 times per day atorvastatin 40 mg Oral Nightly levothyroxine 50 mcg Oral Daily metoprolol tartrate 25 mg Oral Daily pantoprazole 40 mg Oral Daily heparin (porcine) 5,000 Units Subcutaneous 3 times per day Continuous Infusions: [START ON 09/19/2020] sodium chloride Prn Meds : ipratropium-albuterol, HYDROmorphone OR HYDROmorphone, oxyCODONE OR oxyCODONE, LORazepam, sodium chloride flush, promethazine OR [DISCONTINUED] ondansetron, polyethylene glycol, benzonatate Home Meds: No current facility-administered medications on file prior to encounter. Current Outpatient Medications on File Prior to Encounter Medication Sig Dispense Refill atorvastatin (LIPITOR) 40 MG tablet Take 40 mg by mouth daily vitamin B-12 (CYANOCOBALAMIN) 500 MCG tablet Take 500 mcg by mouth daily ferrous sulfate (IRON 325) 325 (65 Fe) MG tablet Take 325 mg by mouth daily (with breakfast) doxycycline hyclate (VIBRA-TABS) 100 MG tablet Take 100 mg by mouth daily levothyroxine (SYNTHROID) 50 MCG tablet Take 50 mcg by mouth Daily zinc gluconate 50 MG tablet Take 50 mg by mouth daily amiodarone (CORDARONE) 200 MG tablet Take 200 mg by mouth daily aspirin 81 MG EC tablet Take 81 mg by mouth daily pantoprazole (PROTONIX) 40 MG tablet Take 40 mg by mouth daily balsalazide (COLAZAL) 750 MG capsule Take 750 mg by mouth daily apixaban (ELIQUIS) 2.5 MG TABS tablet Take 2.5 mg by mouth daily lisinopril (PRINIVIL;ZESTRIL) 20 MG tablet Take 20 mg by mouth daily metoprolol tartrate (LOPRESSOR) 25 MG tablet Take 25 mg by mouth daily OBJECTIVE Physical BP (!) 124/54 Pulse 55 Temp 98.9 F (37.2 C) (Temporal) Resp 15 Ht 5' 11 (1.803 m) Wt 191lb 4.8 oz (86.8 kg) SpO2 97% BMI 26.68 kg/m 24HR INTAKE/OUTPUT: Intake/Output Summary (Last 24 hours) at 09/18/2020 1527 Last data filed at 09/18/2020 0435 Gross per 24 hour Intake 240 ml Output 1005 ml Net -765 ml General: AAO x 3, speaking in full sentences, no accessory muscle use. HEENT: Atraumatic, normocephalic Eyes: EOMI Chest: Bilateral vesicular breath sounds, no rales or wheezes. Cardiac: S1 S2 RR, no murmurs, gallops or rubs Abdomen: Soft, non-tender, BS audible. Extremities: No lower extremity edema Data Last 3 CMP: Recent Labs 09/16/20 0118 09/18/20 0014 NA 130* 131* K 4.1 4.9 CL 106 106 CO2 18* 20* BUN 63* 50* CREATININE 1.99* 1.80* CALCIUM 8.4 8.5 PROT 4.5* -- LABALBU -- 2.1* Last 3 CBC: Recent Labs 09/17/20 1020 09/18/20 0014 WBC 8.0 10.6 RBC 3.28* 3.00* HGB 10.8* 9.9* HCT 33.2* 30.0* MCV 101.2* 99.9* MCH 33.0 33.0 MCHC 32.6 33.0 RDW 14.6* 14.5 PLT 161 155 MPV 8.7 8.8 ASSESSMENT Patient Active Problem List Diagnosis Date Noted Parapneumonic effusion 09/12/2020 ASSESSMENT/PLAN: 1. MYRON- unknown Scr baseline (? 1.8-1.9mg/dl), Scr improved, most recent trend 1.99->1.8mg/dl -1L UO over past 24hr measuring period per EMR 2. Hyponatremia- mild, improved at 131 this AM, monitor 3. Anemia- Hgb at 9.9 this AM, monitor. Transfuse PRN per primary Coy Otoole, SRAVAN - BOAT REPAIRER 09/18/2020 3:27 PM I have discussed the care of Amaury Blank with ENTERPRISE MANAGER. I have personally taken a history, examinedthe patient, and performed the associated medical decision making activities. I have reviewed &verified the attested documentation. Unless otherwise noted below, this documentation reflects the history, physical exam, and medical decision making that I performed myself. Please see below for my personal highlights or additions to the note. Patient seen and examined by myself on 09/18/20 * Roman Rivas MD - 09/18/2020 10:54 AM EDT Images from the original note were not included. Hospitalist Progress Note 09/18/2020 10:54 AM [phone]: Please page me for patient care issues. [phone]: Please page [facility] night Hospitalist for any issues. Subjective: Admit Date: 09/11/2020 PCP: No primary care provider on file. Room#: 6124/837321 Interval History: Feels ok Still sig sob and fatigue CTscan of chest without contrast-1. Large right-sided pleural effusion. Air is noted in the collection suggesting a large empyema. 2. Infiltrate or masslike density in the compressed right lower lobe. 3. 1.5 - 2 cm spiculated cavitary nodule in the left lower lobe. There is atelectasis in the superior segment of the left lower lobe. 4. Renal cysts. DIET CARDIAC; Patient Vitals for the past 96 hrs (Last 3 readings): Weight 09/16/20 0557 191 lb 4.8 oz (86.8 kg) Medications: cefTRIAXone (ROCEPHIN) IV 1,000 mg Intravenous Q24H metroNIDAZOLE 500 mg Oral 2 times per day ipratropium-albuterol 1 ampule Inhalation TID acetaminophen 1,000 mg Oral 3 times per day thiamine mononitrate 100 mg Oral Daily sodium chloride flush 10 mL Intravenous 2 times per day atorvastatin 40 mg Oral Nightly levothyroxine 50 mcg Oral Daily metoprolol tartrate 25 mg Oral Daily pantoprazole 40 mg Oral Daily heparin (porcine) 5,000 Units Subcutaneous 3 times per day LABS: CBC: Recent Labs 09/17/20 1020 09/18/20 0014 WBC 8.0 10.6 RBC 3.28* 3.00* HGB 10.8* 9.9* HCT 33.2* 30.0* MCV 101.2* 99.9* RDW 14.6* 14.5 PLT 161 155 BMP: Recent Labs 09/16/20 0118 09/18/20 0014 NA 130* 131* K 4.1 4.9 CL 106 106 CO2 18* 20* BUN 63* 50* CREATININE 1.99* 1.80* GLUCOSE 132* 112* CALCIUM 8.4 8.5 ANIONGAP 5 5 LIVER PROFILE: Recent Labs 09/16/20 0118 09/18/20 0014 LABALBU -- 2.1* PROT 4.5* -- PT/INR: No results for input(s): PROTIME, INR in the last 72 hours. CARDIAC ENZYMES: No results for input(s): TROPONINI in the last 72 hours. Procalcitonin: Lab Results Component Value Date PROCAL 0.91 09/13/2020 Objective: Vitals: BP (!) 159/87 Pulse 85 Temp 97.6 F (36.4 C) (Temporal) Resp 16 Ht 5' 11 (1.803 m) Wt 191 lb 4.8 oz (86.8 kg) SpO2 98% BMI 26.68 kg/m Pulse Ox: SpO2 Av.9 % Min: 96 % Max: 98 % Supplemental O2: O2 Flow Rate (L/min): 3 L/min General appearance: No apparent distress, HEENT: Eyes: No scleral icterus Pallor noted Oral: Tongue is semi-moist Cardiovascular: S1S2 heard, RRR Respiratory:Decrease breath sound both bases, Abdomen: Soft, non-tender, non-distended with normal bowel sounds. Musculoskeletal: No obvious deformities seen Neurology- no focal neurology,Awake alert Extremity- peripheral edema both lower extremities Assessment Right-sided parapneumonic effusion/concerning for empyema status post thoracentesis done on 09/11/2020, drained 1.9 L, fluid consistent with exudative in nature, status post CT-guided right-sided chest drain placement done on 09/12/2020 Masklike density in right lower lobe concerning for pneumonia. 1.5-2 cm spiculated cavitary nodule in left lower lobe Acute kidney injury on chronic kidney disease [baseline creatinine not available] Hypokalemia -replaced Hyponatremia --follow Coronary artery disease/coronary artery bypass graft Chronic atrial flutter Macrocytic anemia-B12, folate normal Mild thrombocytopenia Hyperglycemia -A1c 5.6 Chronic heart failure preserved ejection fraction History of hypertension Hyperlipidemia Ulcerative colitis, in remission Hypothyroidism History of daily alcohol use Plan Continue nebulizer treatment as ordered Antibiotics per infectious disease team Nephrology team following, Scr improving BMP panel and cbc in a.m. Cardiothoracic surgical team recommendation noted, right VATS or thoracotomy 09/19 Continue Thiamine , prn ativan. -history of daily alcohol use Eliquis is on hold On deep vein thrombosis prophylaxis with heparin sq On gastrointestinal prophylaxis of Protonix 40 mg daily Continue current treatment PT,OT consulted Patient was informed about all work up and treatment plan Discussed with nursing staff Advance Directive: Limited Discharge planning: Roman Rivas MD Division of Hospitalist Medicine Inpatient Medical Services * Bridget Guzman DTR - 09/18/2020 9:37 AM EDT Nutrition update completed. Chart reviewed. Patient to be monitored and followed by the diet tool grinding technician. * Fabiola Jo OT - 09/18/2020 8:22 AM EDT Occupational Therapy OT orders received and chart reviewed. Attempting OT eval, pt planned to have right VATS, possible thoracotomy, with decortication and drainage tomorrow, 09/19. Will continue to follow as schedule permits. Fabiola Jo OTR/L * Kylah Liz MD - 09/18/2020 4:31 AM EDT Images from the original note were not included. Cardiothoracic Surgery Progress Note 09/18/2020 6:29 AM Subjective: Admit Date: 09/11/2020 PCP: No primary care provider on file. Clinical Course IR Right pigtail catheter placement 09/12 tPA 4mg administered 09/13 CT Chest 09/13 - Significant improvement in right pleural effusion. No loculation. tPA 4mg administered 09/14 tPA 2mg administered 09/16 tPA 2mg administered 09/17 Interval History No acute events overnight. Afebrile. VSS. Maintaining SpO2 on room air. Denies pain and dyspnea. Right pigtail catheter to suction. Serosanguinous drainage. Pigtail catheter output 605cc / 24H. Objective: Vitals: Temp (24hrs), Av.1 F (36.7 C), Min:97 F (36.1 C), Max:99.8 F (37.7 C) BP (!) 130/91 Pulse 76 Temp 98.1 F (36.7 C) (Temporal) Resp 18 Ht 5' 11 (1.803 m) Wt 191lb 4.8 oz (86.8 kg) SpO2 96% BMI 26.68 kg/m I/O: Date 09/18/20 0000 - 09/18/20 2359 Shift 2777-4439 3083-6716 6373-9159 24 Hour Total INTAKE Shift Total(mL/kg) OUTPUT Chest Tube 220 220 Shift Total(mL/kg) 220(2.5) 220(2.5) Weight (kg) 86.8 86.8 86.8 86.8 Patient Vitals for the past 96 hrs (Last 3 readings): Weight 09/16/20 0557 191 lb 4.8 oz (86.8 kg) Labs and Diagnostics: (reviewed in EMR) BMP: Recent Labs 09/16/20 0118 09/18/20 0014 NA 130* 131* K 4.1 4.9 CL 106 106 CO2 18* 20* BUN 63* 50* CREATININE 1.99* 1.80* GLUCOSE 132* 112* . CBC: Recent Labs 09/17/20 1020 09/18/20 0014 WBC 8.0 10.6 HGB 10.8* 9.9* PLT 161 155 INR: Lab Results Component Value Date PROTIME 13.8 09/12/2020 INR 1.3 09/12/2020 Medications: Scheduled Meds: cefTRIAXone (ROCEPHIN) IV 1,000 mg Intravenous Q24H metroNIDAZOLE 500 mg Oral 2 times per day ipratropium-albuterol 1 ampule Inhalation TID acetaminophen 1,000 mg Oral 3 times per day thiamine mononitrate 100 mg Oral Daily sodium chloride flush 10 mL Intravenous 2 times per day atorvastatin 40 mg Oral Nightly levothyroxine 50 mcg Oral Daily metoprolol tartrate 25 mg Oral Daily pantoprazole 40 mg Oral Daily heparin (porcine) 5,000 Units Subcutaneous 3 times per day Continuous Infusions: Home Meds: Prior to Admission medications Medication Sig Start Date End Date Taking? Authorizing Provider atorvastatin (LIPITOR) 40 MG tablet Take 40 mg by mouth daily Yes Historical Provider, vitamin B-12 (CYANOCOBALAMIN) 500 MCG tablet Take 500 mcg by mouth daily Yes Historical Provider, ferrous sulfate (IRON 325) 325 (65 Fe) MG tablet Take 325 mg by mouth daily (with breakfast) Yes Historical Provider, doxycycline hyclate (VIBRA-TABS) 100 MG tablet Take 100 mg by mouth daily Yes Historical Provider, levothyroxine (SYNTHROID) 50 MCG tablet Take 50 mcg by mouth Daily Yes Historical Provider, zinc gluconate 50 MG tablet Take 50 mg by mouth daily Yes Historical Provider, amiodarone (CORDARONE) 200 MG tablet Take 200 mg by mouth daily Yes Historical Provider, aspirin 81 MG EC tablet Take 81 mg by mouth daily Yes Historical Provider, pantoprazole (PROTONIX) 40 MG tablet Take 40 mg by mouth daily Yes Historical Provider, balsalazide (COLAZAL) 750 MG capsule Take 750 mg by mouth daily Yes Historical Provider, apixaban (ELIQUIS) 2.5 MG TABS tablet Take 2.5 mg by mouth daily Yes Historical Provider, lisinopril (PRINIVIL;ZESTRIL) 20 MG tablet Take 20 mg by mouth daily Yes Historical Provider, metoprolol tartrate (LOPRESSOR) 25 MG tablet Take 25 mg by mouth daily Yes Historical Provider, Physical Exam General: No acute distress CV: Regular rate Pulm: Equal breath sounds bilaterally, right pigtail catheter to suction, serosanguinous drainage, no air leak Abd: Soft, NT, ND Neuro: Awake, alert, oriented Diet: DIET CARDIAC; Problem List: Active Problems: Parapneumonic effusion Resolved Problems: * No resolved hospital problems. * Assessment and Plan: 80-year-old male with right-sided empyema s/p thoracentesis 09/11, IR pigtail catheter placement 09/12, and tPA administration 09/13, 09/14, 09/16, and 09/17 - Persistent right pleural effusion on CXR this morning. - Given persistent effusion and high pigtail catheter output, plan to proceed with right VATS, possible thoracotomy, with decortication and drainage tomorrow, 09/19 - Pain control with scheduled Tylenol. Oxycodone / Dilaudid PRN. - Continue ceftriaxone / Flagyl per ID - Pleural fluid cx 09/12: Strep intermedius / Anaerobic gram negative bacillus. - Blood cx 09/11: NGTD. - Pleural fluid cytology 09/13: Inflammatory process. No malignant cells. - Scheduled DuoNebs. IS / Acapella. - Hx Aflutter. Continue to hold Eliquis. Last dose 09/08. - Cardiac diet as tolerated - MYRON improving. Cr 1.8 from 1.99. Nephrology following. - DVT ppx: SCDs / Heparin - Medical management per primary - Will continue to follow Kylah Liz MD Disclaimers: INFORMED CONSENT: The nature and purpose of the proposed treatment and/or procedure have been discussed. The risks and benefits of the proposed treatment or procedures have been reviewed. Alternatives have been reviewed in addition to the risks and benefits of not receiving treatments or undergoingprocedures. Pursuant to this discussion, the patient agrees to undergo the proposed treatment or procedure. Captured images seen in this note are not a substitute for a comprehensive interpretation of the entire data set as reflected by the interpreting physician with regard to radiology, echocardiography,and other diagnostic images. This note may have been dictated using [facility] [employer] Practice Edition 2.6 and/or [employer] Voice Recognition Feature. The document was proofread; however, unrecognized voice recognition dinkey engine mechanic errors may be present. Associated attestation - Kassandra Davidson MD - 09/18/2020 3:27 PM EDT DOS: 09/18/2020 I personally performed a face to face diagnostic evaluation on this patient. I agree with the findings and plan of care as documented by the resident/ASSISTANT STORE MANAGER OPERATIONS/ENTERPRISE MANAGER/PA, unless otherwise noted. Kassandra Davidson MD Cardiothoracic Surgery * Sha Downs MD - 09/17/2020 6:35 PM EDT Progress Note [facility] Patient - Amaury Blank, Age - 80 y.o. - 1940 Room Number - [id number] [facility] - [id number] Date of Admission - 09/11/2020 8:15 PM ASSESSMENT Complicated parapneumonic effusion with concern for empyema s/p thoracocentesis + drain placement MYRON B/l infiltrates concern for PNA, community acquired versus aspiration HFpEF Afib PLAN --pleural fluid cx with strep intermedius + anaerobes -- c/w ceftriaxone + flagyl --pleural fluid cytology- no malignant cells --remains with persistent pleural effusion with concern for lung entrapment , s/p tpa - may need VATS, thoracotomy /decortication next week. SUBJECTIVE: ROS with patient/RN unless stated otherwise. Denied cough, SOB, chest pain, abdominal pain, nausea, vomiting, dysuria, diarrhea, headache Afebrile, no wbc, pleural fluid cx- ngtd OBJECTIVE VITALS height is 5' 11 (1.803 m) and weight is 191 lb 4.8 oz (86.8 kg). His temporal temperature is 97 F (36.1 C). His blood pressure is 148/70 (abnormal) and his pulse is 71. His respiration is 16 and oxygen saturation is 97%. Temp (24hrs), Av.3 F (36.8 C), Min:97 F (36.1 C), Max:99.8 F (37.7 C) General Appearance: Alert, NAD HEENT: wnl Neck: Supple Lungs: Clear to auscultation b/l on room air, right chest tube draining purulent fluid Cardiovascular: RRR Abdomen: Soft NT, ND, BS+ : no CVAT. No koenig Neurologic: wnl Skin: No rashes Extremities: No edema, No joint inflammation Lines: sites clean MEDICATIONS: cefTRIAXone (ROCEPHIN) IV 1,000 mg Intravenous Q24H metroNIDAZOLE 500 mg Oral 2 times per day ipratropium-albuterol 1 ampule Inhalation TID acetaminophen 1,000 mg Oral 3 times per day thiamine mononitrate 100 mg Oral Daily sodium chloride flush 10 mL Intravenous 2 times per day atorvastatin 40 mg Oral Nightly levothyroxine 50 mcg Oral Daily metoprolol tartrate 25 mg Oral Daily pantoprazole 40 mg Oral Daily heparin (porcine) 5,000 Units Subcutaneous 3 times per day LABS: CBC: Recent Labs 09/15/20 0154 09/17/20 1020 WBC -- 8.0 HGB 10.7* 10.8* PLT -- 161 BMP: Recent Labs 09/15/20 0154 09/16/20 0118 NA 134* 130* K 4.0 4.1 CL 106 106 CO2 19* 18* BUN 68* 63* CREATININE 2.27* 1.99* GLUCOSE 105* 132* Hepatic: Recent Labs 09/16/20 0118 PROT 4.5* Lactic Acid: No results for input(s): LACTA in the last 72 hours. MICROBIOLOGY: No results for input(s): BC in the last 72 hours. IMAGING: CT chest 09/13 reviewed Sha Downs MD [facility] Pager: [phone] 09/17/2020 6:35 PM * Delmy Brush DO - 09/17/2020 11:49 AM EDT [facility] [address] [place] [address] Progress Note Subjective: Patient seen and examined today. We are following this patient for myron Denies sob/cp no c/o Eating well 710 cc from chest tube Scheduled Meds: cefTRIAXone (ROCEPHIN) IV 1,000 mg Intravenous Q24H metroNIDAZOLE 500 mg Oral 2 times per day ipratropium-albuterol 1 ampule Inhalation TID acetaminophen 1,000 mg Oral 3 times per day thiamine mononitrate 100 mg Oral Daily sodium chloride flush 10 mL Intravenous 2 times per day atorvastatin 40 mg Oral Nightly levothyroxine 50 mcg Oral Daily metoprolol tartrate 25 mg Oral Daily pantoprazole 40 mg Oral Daily heparin (porcine) 5,000 Units Subcutaneous 3 times per day Continuous Infusions: PRN Meds:ipratropium-albuterol, HYDROmorphone OR HYDROmorphone, oxyCODONE OR oxyCODONE, LORazepam, sodium chloride flush, promethazine OR [DISCONTINUED] ondansetron, polyethylene glycol, benzonatate Vitals: BP 116/65 Pulse 73 Temp 98.6 F (37 C) (Temporal) Resp 18 Ht 5' 11 (1.803 m) Wt 191 lb 4.8 oz (86.8 kg) SpO2 98% BMI 26.68 kg/m BLOOD PRESSURE RANGE: Systolic (24hrs), Av , Min:106 , Max:158 ; Diastolic (24hrs), Av, Min:62, Max:88 24HR INTAKE/OUTPUT: Intake/Output Summary (Last 24 hours) at 09/17/2020 1149 Last data filed at 09/17/2020 1132 Gross per 24 hour Intake 600 ml Output 2110 ml Net -1510 ml Physical exam: GENERAL well developed , no distress LUNGS clear to auscultationrespirations are even and unlaboured CARDIAC RRR S1 S2 no rubs, murmurs or gallops ABDOMEN soft nontender BS present in all four quadrants EXTREMITIES no LE edema NEURO alert awake Data: Labs: Recent Labs 09/15/20 0154 09/17/20 1020 WBC -- 8.0 HGB 10.7* 10.8* HCT 32.9* 33.2* MCV -- 101.2* PLT -- 161 Recent Labs 09/15/20 0154 09/16/20 0118 NA 134* 130* K 4.0 4.1 CL 106 106 CO2 19* 18* GLUCOSE 105* 132* MG -- 1.7 BUN 68* 63* CREATININE 2.27* 1.99* Ionized Calcium: No results found for: IONCA Magnesium: Lab Results Component Value Date MG 1.7 09/16/2020 Phosphorus: Lab Results Component Value Date PHOS 4.5 09/11/2020 U/A: Lab Results Component Value Date COLORU Yellow 09/12/2020 WBCUA 0-2 09/12/2020 RBCUA 0-2 09/12/2020 BACTERIA Negative 09/12/2020 LEUKOCYTESUR Negative 09/12/2020 UROBILINOGEN Normal 09/12/2020 BILIRUBINUR Negative 09/12/2020 GLUCOSEU Normal 09/12/2020 Urine Culture: No components found for: CURINE Blood Culture: No components found for: CBLOOD, CFUNGUSBL Blood Culture from Central Line: No components found for: CBLOODLN Urinalysis: Reviewed if applicable Imaging:reviewed if applicable Assessment / Plan: Patient Active Problem List Diagnosis Parapneumonic effusion MYRON unknown baseline B/l renal cysts NAGMA LE edema HFpEF HTN Pleural effusion r/o empyema s/p thoracentesis now with r chest drain Scr 2.27 to 2.0 Improved, no new BMP -check in am Hold lisinopril abx per primary Avoid nephrotoxins Delmy Brush DO 09/17/2020 11:49 AM * Gilbert Henry MD - 09/17/2020 11:42 AM EDT Images from the original note were not included. Hospitalist Progress Note 09/17/2020 11:42 AM [phone]: Please page me for patient care issues. [phone]: Please page [facility] night Hospitalist for any issues. Subjective: Admit Date: 09/11/2020 PCP: No primary care provider on file. Room#: [id number] Interval History: Patient seen and examined No new event overnight Denies any chest pain, cough, sputum, sob No nausea, vomiting. normal BM No fever spike noted. No dizzy Tolerating diet, pain controlled. CTscan of chest without contrast-1. Large right-sided pleural effusion. Air is noted in the collection suggesting a large empyema. 2. Infiltrate or masslike density in the compressed right lower lobe. 3. 1.5 - 2 cm spiculated cavitary nodule in the left lower lobe. There is atelectasis in the superior segment of the left lower lobe. 4. Renal cysts. DIET CARDIAC; Patient Vitals for the past 96 hrs (Last 3 readings): Weight 09/16/20 0557 191 lb 4.8 oz (86.8 kg) Medications: cefTRIAXone (ROCEPHIN) IV 1,000 mg Intravenous Q24H metroNIDAZOLE 500 mg Oral 2 times per day ipratropium-albuterol 1 ampule Inhalation TID acetaminophen 1,000 mg Oral 3 times per day thiamine mononitrate 100 mg Oral Daily sodium chloride flush 10 mL Intravenous 2 times per day atorvastatin 40 mg Oral Nightly levothyroxine 50 mcg Oral Daily metoprolol tartrate 25 mg Oral Daily pantoprazole 40 mg Oral Daily heparin (porcine) 5,000 Units Subcutaneous 3 times per day LABS: CBC: Recent Labs 09/15/20 0154 09/17/20 1020 WBC -- 8.0 RBC -- 3.28* HGB 10.7* 10.8* HCT 32.9* 33.2* MCV -- 101.2* RDW -- 14.6* PLT -- 161 BMP: Recent Labs 09/15/20 0154 09/16/20 0118 NA 134* 130* K 4.0 4.1 CL 106 106 CO2 19* 18* BUN 68* 63* CREATININE 2.27* 1.99* GLUCOSE 105* 132* CALCIUM 8.3* 8.4 ANIONGAP 9 5 LIVER PROFILE: Recent Labs 09/16/20 0118 PROT 4.5* PT/INR: No results for input(s): PROTIME, INR in the last 72 hours. CARDIAC ENZYMES: No results for input(s): TROPONINI in the last 72 hours. Procalcitonin: Lab Results Component Value Date PROCAL 0.91 09/13/2020 Objective: Vitals: BP 116/65 Pulse 73 Temp 98.6 F (37 C) (Temporal) Resp 18 Ht 5' 11 (1.803 m) Wt 191 lb 4.8 oz (86.8 kg) SpO2 98% BMI 26.68 kg/m Pulse Ox: SpO2 Av.4 % Min: 85 % Max: 98 % Supplemental O2: O2 Flow Rate (L/min): 3 L/min General appearance: No apparent distress, HEENT: Eyes: No scleral icterus Pallor noted Oral: Tongue is semi-moist Cardiovascular: S1S2 heard, RRR Respiratory:Decrease breath sound both bases, right side chest tube noted Abdomen: Soft, non-tender, non-distended with normal bowel sounds. Musculoskeletal: No obvious deformities seen Neurology- no focal neurology,Awake alert Extremity- peripheral edema both lower extremities Assessment Right-sided parapneumonic effusion/concerning for empyema status post thoracentesis done on 09/11/2020, drained 1.9 L, fluid consistent with exudative in nature, status post CT-guided right-sided chest drain placement done on 09/12/2020 Masklike density in right lower lobe concerning for pneumonia. 1.5-2 cm spiculated cavitary nodule in left lower lobe Acute kidney injury on chronic kidney disease [baseline creatinine not available] Hypokalemia -replaced Hyponatremia --follow Coronary artery disease/coronary artery bypass graft Chronic atrial flutter Macrocytic anemia-B12, folate normal Mild thrombocytopenia Hyperglycemia -A1c 5.6 Chronic heart failure preserved ejection fraction History of hypertension Hyperlipidemia Ulcerative colitis, in remission Hypothyroidism History of daily alcohol use Plan Continue nebulizer treatment as ordered Antibiotics per infectious disease team Nephrology team following, Scr improving BMP panel and cbc in a.m. Cardiothoracic surgical team recommendation noted, possible right VATS or thoracotomy 09/19 Continue Thiamine , prn ativan. -history of daily alcohol use Eliquis is on hold On deep vein thrombosis prophylaxis with heparin sq On gastrointestinal prophylaxis of Protonix 40 mg daily Continue current treatment PT,OT consulted Patient was informed about all work up and treatment plan Discussed with nursing staff Advance Directive: Limited Discharge planning: Gilbert Henry MD Division of Hospitalist Medicine Inpatient Medical Services * Kylah Liz MD - 09/17/2020 4:31 AM EDT Images from the original note were not included. Cardiothoracic Surgery Progress Note 09/17/2020 7:15 AM Subjective: Admit Date: 09/11/2020 PCP: No primary care provider on file. Clinical Course IR Right pigtail catheter placement 09/12 tPA 4mg administered 09/13 CT Chest 09/13 - Significant improvement in right pleural effusion. No loculation. tPA 4mg administered 09/14 tPA 2mg administered 09/16 Interval History No acute events overnight. Afebrile. VSS. Maintaining SpO2 on room air. Pain controlled. Denies dyspnea. Right pigtail catheter to suction. Output 710cc / 24H. Objective: Vitals: Temp (24hrs), Av.6 F (36.4 C), Min:96.6 F (35.9 C), Max:99 F (37.2 C) BP 138/80 Pulse 79 Temp 97.1 F (36.2 C) (Temporal) Resp 14 Ht 5' 11 (1.803 m) Wt 191 lb 4.8 oz (86.8 kg) SpO2 97% BMI 26.68 kg/m I/O: Date 09/17/20 0000 - 09/17/20 2359 Shift 2177-1617 9226-9064 2713-3262 24 Hour Total INTAKE Shift Total(mL/kg) OUTPUT Urine(mL/kg/hr) 400 400 Chest Tube 280 280 Shift Total(mL/kg) 680(7.8) 680(7.8) Weight (kg) 86.8 86.8 86.8 86.8 Patient Vitals for the past 96 hrs (Last 3 readings): Weight 09/16/20 0557 191 lb 4.8 oz (86.8 kg) Labs and Diagnostics: (reviewed in EMR) BMP: Recent Labs 09/15/20 0154 09/16/20 0118 NA 134* 130* K 4.0 4.1 CL 106 106 CO2 19* 18* BUN 68* 63* CREATININE 2.27* 1.99* GLUCOSE 105* 132* . CBC: Recent Labs 09/15/20153 HGB 10.7* INR: Lab Results Component Value Date PROTIME 13.8 09/12/2020 INR 1.3 09/12/2020 Medications: Scheduled Meds: cefTRIAXone (ROCEPHIN) IV 1,000 mg Intravenous Q24H metroNIDAZOLE 500 mg Oral 2 times per day ipratropium-albuterol 1 ampule Inhalation TID acetaminophen 1,000 mg Oral 3 times per day thiamine mononitrate 100 mg Oral Daily sodium chloride flush 10 mL Intravenous 2 times per day atorvastatin 40 mg Oral Nightly levothyroxine 50 mcg Oral Daily metoprolol tartrate 25 mg Oral Daily pantoprazole 40 mg Oral Daily heparin (porcine) 5,000 Units Subcutaneous 3 times per day Continuous Infusions: Home Meds: Prior to Admission medications Medication Sig Start Date End Date Taking? Authorizing Provider atorvastatin (LIPITOR) 40 MG tablet Take 40 mg by mouth daily Yes Historical Provider, vitamin B-12 (CYANOCOBALAMIN) 500 MCG tablet Take 500 mcg by mouth daily Yes Historical Provider, ferrous sulfate (IRON 325) 325 (65 Fe) MG tablet Take 325 mg by mouth daily (with breakfast) Yes Historical Provider, doxycycline hyclate (VIBRA-TABS) 100 MG tablet Take 100 mg by mouth daily Yes Historical Provider, levothyroxine (SYNTHROID) 50 MCG tablet Take 50 mcg by mouth Daily Yes Historical Provider, zinc gluconate 50 MG tablet Take 50 mg by mouth daily Yes Historical Provider, amiodarone (CORDARONE) 200 MG tablet Take 200 mg by mouth daily Yes Historical Provider, aspirin 81 MG EC tablet Take 81 mg by mouth daily Yes Historical Provider, pantoprazole (PROTONIX) 40 MG tablet Take 40 mg by mouth daily Yes Historical Provider, balsalazide (COLAZAL) 750 MG capsule Take 750 mg by mouth daily Yes Historical Provider, apixaban (ELIQUIS) 2.5 MG TABS tablet Take 2.5 mg by mouth daily Yes Historical Provider, lisinopril (PRINIVIL;ZESTRIL) 20 MG tablet Take 20 mg by mouth daily Yes Historical Provider, metoprolol tartrate (LOPRESSOR) 25 MG tablet Take 25 mg by mouth daily Yes Historical Provider, Physical Exam General: No acute distress CV: Regular rate Pulm: Equal breath sounds bilaterally, right pigtail catheter to suction, serosanguinous drainage, no air leak Abd: Soft, NT, ND Neuro: Awake, alert, oriented Diet: DIET CARDIAC; Problem List: Active Problems: Parapneumonic effusion Resolved Problems: * No resolved hospital problems. * Assessment and Plan: 80-year-old male with right-sided empyema s/p thoracentesis 09/11, IR pigtail catheter placement 09/12, and tPA administration 09/13, 09/14, and 09/16 - Right pleural effusion improved on CXR this morning. - Plan to redose tPA 2mg today - If no clinical improvement with tPA this weekend, will consider right VATS, possible thoracotomy,with decortication and drainage on Friday, 09/19 - Pain control with scheduled Tylenol. Oxycodone / Dilaudid PRN. - Continue ceftriaxone / Flagyl per ID - Pleural fluid cx 09/12: Strep intermedius / Anaerobic gram negative bacillus. - Blood cx 09/11: NGTD. - Pleural fluid cytology 09/13: Inflammatory process. No malignant cells. - Scheduled DuoNebs. IS / Acapella. - Hx Aflutter. Continue to hold Eliquis. Last dose 09/08. - Cardiac diet as tolerated - MYRON improving. Nephrology following. - DVT ppx: SCDs / Heparin - Medical management per primary - Will continue to follow Kylah Liz MD Disclaimers: INFORMED CONSENT: The nature and purpose of the proposed treatment and/or procedure have been discussed. The risks and benefits of the proposed treatment or procedures have been reviewed. Alternatives have been reviewed in addition to the risks and benefits of not receiving treatments or undergoingprocedures. Pursuant to this discussion, the patient agrees to undergo the proposed treatment or procedure. Captured images seen in this note are not a substitute for a comprehensive interpretation of the entire data set as reflected by the interpreting physician with regard to radiology, echocardiography,and other diagnostic images. This note may have been dictated using [employer] Medical Practice Edition 2.6 and/or [employer] Voice Recognition Feature. The document was proofread; however, unrecognized voice recognition dinkey engine mechanic errors may be present. Associated attestation - Kassandra Davidson MD - 09/17/2020 9:33 AM EDT DOS: 09/17/2020 I personally performed a face to face diagnostic evaluation on this patient. I agree with the findings and plan of care as documented by the resident/ASSISTANT STORE MANAGER OPERATIONS/ENTERPRISE MANAGER/PA, unless otherwise noted. Kassandra Davidson MD Cardiothoracic Surgery * Sha Downs MD - 09/16/2020 5:49 PM EDT Progress Note [facility] Patient - Amaury Blank, Age - 80 y.o. - 1940 Room Number - [id number] N - [id number] [facility] - [id number] Date of Admission - 09/11/2020 8:15 PM ASSESSMENT Complicated parapneumonic effusion with concern for empyema s/p thoracocentesis + drain placement MYRON B/l infiltrates concern for PNA, community acquired versus aspiration HFpEF Afib PLAN --pleural fluid cx; ngtd but purulent /cream colored fluid in chest tube, predominantly neutrophilic --CAP antigen negative --MRSA nares negative --start ceftriaxone + flagyl --f/u pleural fluid cytology --remains with persistent pleural effusion with concern for lung entrapment , s/p tpa - may need VATS, thoracotomy /decortication next week. SUBJECTIVE: ROS with patient/RN unless stated otherwise. Denied cough, SOB, chest pain, abdominal pain, nausea, vomiting, dysuria, diarrhea, headache Afebrile, no wbc, pleural fluid cx- ngtd OBJECTIVE VITALS height is 5' 11 (1.803 m) and weight is 191 lb 4.8 oz (86.8 kg). His temporal temperature is 98.2 F (36.8 C). His blood pressure is 158/87 (abnormal) and his pulse is 93. His respiration is 18 and oxygen saturation is 97%. Temp (24hrs), Av.3 F (36.3 C), Min:96.6 F (35.9 C), Max:98.2 F (36.8 C) General Appearance: Alert, NAD HEENT: wnl Neck: Supple Lungs: Clear to auscultation b/l on room air, right chest tube draining purulent fluid Cardiovascular: RRR Abdomen: Soft NT, ND, BS+ : no CVAT. No koenig Neurologic: wnl Skin: No rashes Extremities: No edema, No joint inflammation Lines: sites clean MEDICATIONS: cefTRIAXone (ROCEPHIN) IV 1,000 mg Intravenous Q24H metroNIDAZOLE 500 mg Oral 2 times per day ipratropium-albuterol 1 ampule Inhalation TID acetaminophen 1,000 mg Oral 3 times per day thiamine mononitrate 100 mg Oral Daily sodium chloride flush 10 mL Intravenous 2 times per day atorvastatin 40 mg Oral Nightly levothyroxine 50 mcg Oral Daily metoprolol tartrate 25 mg Oral Daily pantoprazole 40 mg Oral Daily heparin (porcine) 5,000 Units Subcutaneous 3 times per day LABS: CBC: Recent Labs 09/15/20 0154 HGB 10.7* BMP: Recent Labs 09/14/20 0146 09/15/20 0154 09/16/20 0118 NA 138 134* 130* K 3.7 4.0 4.1 CL 110* 106 106 CO2 20* 19* 18* BUN 70* 68* 63* CREATININE 2.24* 2.27* 1.99* GLUCOSE 129* 105* 132* Hepatic: Recent Labs 09/16/20 0118 PROT 4.5* Lactic Acid: No results for input(s): LACTA in the last 72 hours. MICROBIOLOGY: No results for input(s): BC in the last 72 hours. IMAGING: CT chest 09/13 reviewed Sha Downs MD [facility] Pager: [phone] 09/16/2020 5:49 PM * Delmy Brush, DO - 09/16/2020 4:22 PM EDT [facility] [address] [place] [address] Progress Note Subjective: Patient seen and examined today. We are following this patient for myron Denies sob/cp no c/o Eating well Scheduled Meds: cefTRIAXone (ROCEPHIN) IV 1,000 mg Intravenous Q24H metroNIDAZOLE 500 mg Oral 2 times per day ipratropium-albuterol 1 ampule Inhalation TID acetaminophen 1,000 mg Oral 3 times per day thiamine mononitrate 100 mg Oral Daily sodium chloride flush 10 mL Intravenous 2 times per day atorvastatin 40 mg Oral Nightly levothyroxine 50 mcg Oral Daily metoprolol tartrate 25 mg Oral Daily pantoprazole 40 mg Oral Daily heparin (porcine) 5,000 Units Subcutaneous 3 times per day Continuous Infusions: PRN Meds:ipratropium-albuterol, HYDROmorphone OR HYDROmorphone, oxyCODONE OR oxyCODONE, LORazepam, sodium chloride flush, promethazine OR [DISCONTINUED] ondansetron, polyethylene glycol, benzonatate Vitals: BP (!) 140/75 Pulse 79 Temp 96.8 F (36 C) (Temporal) Resp 18 Ht 5' 11 (1.803 m) Wt 191 lb 4.8 oz (86.8 kg) SpO2 97% BMI 26.68 kg/m BLOOD PRESSURE RANGE: Systolic (24hrs), Av , Min:118 , Max:145 ; Diastolic (24hrs), Av, Min:54, Max:88 24HR INTAKE/OUTPUT: Intake/Output Summary (Last 24 hours) at 09/16/2020 1622 Last data filed at 09/16/2020 1547 Gross per 24 hour Intake 940 ml Output 780 ml Net 160 ml Physical exam: GENERAL well developed , no distress LUNGS clear to auscultationrespirations are even and unlaboured CARDIAC RRR S1 S2 no rubs, murmurs or gallops ABDOMEN soft nontender BS present in all four quadrants EXTREMITIES no LE edema NEURO alert awake Data: Labs: Recent Labs 09/15/20 0154 HGB 10.7* HCT 32.9* Recent Labs 09/14/20 0146 09/15/20 0154 09/16/20 0118 NA 138 134* 130* K 3.7 4.0 4.1 CL 110* 106 106 CO2 20* 19* 18* GLUCOSE 129* 105* 132* MG -- -- 1.7 BUN 70* 68* 63* CREATININE 2.24* 2.27* 1.99* Ionized Calcium: No results found for: IONCA Magnesium: Lab Results Component Value Date MG 1.7 09/16/2020 Phosphorus: Lab Results Component Value Date PHOS 4.5 09/11/2020 U/A: Lab Results Component Value Date COLORU Yellow 09/12/2020 WBCUA 0-2 09/12/2020 RBCUA 0-2 09/12/2020 BACTERIA Negative 09/12/2020 LEUKOCYTESUR Negative 09/12/2020 UROBILINOGEN Normal 09/12/2020 BILIRUBINUR Negative 09/12/2020 GLUCOSEU Normal 09/12/2020 Urine Culture: No components found for: CURINE Blood Culture: No components found for: CBLOOD, CFUNGUSBL Blood Culture from Central Line: No components found for: CBLOODLN Urinalysis: Reviewed if applicable Imaging:reviewed if applicable Assessment / Plan: Patient Active Problem List Diagnosis Parapneumonic effusion MYRON unknown baseline B/l renal cysts NAGMA LE edema HFpEF HTN Pleural effusion r/o empyema s/p thoracentesis now with r chest drain Scr 2.27 to 2.0 improving Hold lisinopril abx per primary Avoid nephrotoxins Delmy Brush DO 09/16/2020 4:22 PM * Gilbert Henry MD - 09/16/2020 11:22 AM EDT Images from the original note were not included. Hospitalist Progress Note 09/16/2020 11:22 AM [phone]: Please page me for patient care issues. [phone]: Please page [facility] night Hospitalist for any issues. Subjective: Admit Date: 09/11/2020 PCP: No primary care provider on file. Room#: [id number] Interval History: Patient seen and examined No new event overnight Denies any chest pain, cough, sputum, sob No nausea, vomiting No fever spike noted. Blood culture negative CTscan of chest without contrast-1. Large right-sided pleural effusion. Air is noted in the collection suggesting a large empyema. 2. Infiltrate or masslike density in the compressed right lower lobe. 3. 1.5 - 2 cm spiculated cavitary nodule in the left lower lobe. There is atelectasis in the superior segment of the left lower lobe. 4. Renal cysts. DIET CARDIAC; Patient Vitals for the past 96 hrs (Last 3 readings): Weight 09/16/20 0557 191 lb 4.8 oz (86.8 kg) Medications: cefTRIAXone (ROCEPHIN) IV 1,000 mg Intravenous Q24H metroNIDAZOLE 500 mg Oral 2 times per day ipratropium-albuterol 1 ampule Inhalation TID acetaminophen 1,000 mg Oral 3 times per day thiamine mononitrate 100 mg Oral Daily sodium chloride flush 10 mL Intravenous 2 times per day atorvastatin 40 mg Oral Nightly levothyroxine 50 mcg Oral Daily metoprolol tartrate 25 mg Oral Daily pantoprazole 40 mg Oral Daily heparin (porcine) 5,000 Units Subcutaneous 3 times per day LABS: CBC: Recent Labs 09/15/20 0154 HGB 10.7* HCT 32.9* BMP: Recent Labs 09/14/20 0146 09/15/20 0154 09/16/20 0118 NA 138 134* 130* K 3.7 4.0 4.1 CL 110* 106 106 CO2 20* 19* 18* BUN 70* 68* 63* CREATININE 2.24* 2.27* 1.99* GLUCOSE 129* 105* 132* CALCIUM 8.5 8.3* 8.4 ANIONGAP 8 9 5 LIVER PROFILE: Recent Labs 09/16/20 011 PROT 4.5* PT/INR: No results for input(s): PROTIME, INR in the last 72 hours. CARDIAC ENZYMES: No results for input(s): TROPONINI in the last 72 hours. Procalcitonin: Lab Results Component Value Date PROCAL 0.91 09/13/2020 Objective: Vitals: BP (!) 141/70 Pulse 79 Temp 96.7 F (35.9 C) (Temporal) Resp 14 Ht 5' 11 (1.803 m) Wt 191 lb 4.8 oz (86.8 kg) SpO2 99% BMI 26.68 kg/m Pulse Ox: SpO2 Av.4 % Min: 97 % Max: 100 % Supplemental O2: O2 Flow Rate (L/min): 3 L/min General appearance: No apparent distress, HEENT: Eyes: No scleral icterus Pallor noted Oral: Tongue is semi-moist Cardiovascular: S1S2 heard, RRR Respiratory:Decrease breath sound both bases, right side chest tube noted Abdomen: Soft, non-tender, non-distended with normal bowel sounds. Musculoskeletal: No obvious deformities seen Neurology- no focal neurology,Awake alert Extremity- peripheral edema both lower extremities Assessment Right-sided parapneumonic effusion/concerning for empyema status post thoracentesis done on 09/11/2020, drained 1.9 L, fluid consistent with exudative in nature, status post CT-guided right-sided chest drain placement done on 09/12/2020 Masklike density in right lower lobe concerning for pneumonia. 1.5-2 cm spiculated cavitary nodule in left lower lobe Acute kidney injury on chronic kidney disease [baseline creatinine not available] Hypokalemia -replaced Coronary artery disease/coronary artery bypass graft Chronic atrial flutter Macrocytic anemia-B12, folate normal Mild thrombocytopenia Hyperglycemia -A1c 5.6 Chronic heart failure preserved ejection fraction History of hypertension Hyperlipidemia Ulcerative colitis, in remission Hypothyroidism History of daily alcohol use Plan Continue nebulizer treatment as ordered Antibiotics per infectious disease team Nephrology team following BMP panel in a.m. Cardiothoracic surgical team recommendation noted, possible right VATS or thoracotomy next Friday Continue Thiamine , prn ativan. -history of daily alcohol use Eliquis is on hold On deep vein thrombosis prophylaxis with heparin sq On gastrointestinal prophylaxis of Protonix 40 mg daily Continue current treatment Labs ordered for AM PT,OT consulted Patient was informed about all work up and treatment plan Discussed with nursing staff Advance Directive: Limited Discharge planning: Gilbert Henry MD Division of Hospitalist Medicine Inpatient Medical Services * Grace Alegre RN - 09/16/2020 4:[address] Kaminski paged regarding patients prolonged QTC (>600). Stat EKG, add on mag lab test ordered. Patient resting in bed, call light within reach. * Kylah Liz MD - 09/16/2020 4:33 AM EDT Images from the original note were not included. Cardiothoracic Surgery Progress Note 09/16/2020 9:55 AM Subjective: Admit Date: 09/11/2020 PCP: No primary care provider on file. Clinical Course IR Right pigtail catheter placement 09/12 tPA 4mg administered 09/13 CT Chest 09/13 - Significant improvement in right pleural effusion. No loculation. tPA 4mg administered 09/14 tPA 2mg administered 09/16 Interval History No acute events overnight. Afebrile. VSS. Maintaining SpO2 on room air. Denies pain and dyspnea. Right pleural pigtail catheter output 550cc / 24H. Objective: Vitals: Temp (24hrs), Av.7 F (36.5 C), Min:96.7 F (35.9 C), Max:99.2 F (37.3 C) BP (!) 141/70 Pulse 79 Temp 96.7 F (35.9 C) (Temporal) Resp 14 Ht 5' 11 (1.803 m) Wt 191 lb 4.8 oz (86.8 kg) SpO2 99% BMI 26.68 kg/m I/O: Date 09/16/20 0000 - 09/16/20 2359 Shift [id number] 6083-9768 4225-0890 24 Hour Total INTAKE P.O.(mL/kg/hr) 300(0.4) 300 Shift Total(mL/kg) 300(3.5) 300(3.5) OUTPUT Chest Tube 110 110 Shift Total(mL/kg) 110(1.3) 110(1.3) Weight (kg) 86.8 86.8 86.8 86.8 Patient Vitals for the past 96 hrs (Last 3 readings): Weight 09/16/20 0557 191 lb 4.8 oz (86.8 kg) Labs and Diagnostics: (reviewed in EMR) BMP: Recent Labs 09/14/20 0146 09/15/20 0154 09/16/20 0118 NA 138 134* 130* K 3.7 4.0 4.1 CL 110* 106 106 CO2 20* 19* 18* BUN 70* 68* 63* CREATININE 2.24* 2.27* 1.99* GLUCOSE 129* 105* 132* . CBC: Recent Labs 09/15/20153 HGB 10.7* INR: Lab Results Component Value Date PROTIME 13.8 09/12/2020 INR 1.3 09/12/2020 Medications: Scheduled Meds: IV syringe builder Intravenous Once cefTRIAXone (ROCEPHIN) IV 1,000 mg Intravenous Q24H metroNIDAZOLE 500 mg Oral 2 times per day ipratropium-albuterol 1 ampule Inhalation TID acetaminophen 1,000 mg Oral 3 times per day thiamine mononitrate 100 mg Oral Daily sodium chloride flush 10 mL Intravenous 2 times per day atorvastatin 40 mg Oral Nightly levothyroxine 50 mcg Oral Daily metoprolol tartrate 25 mg Oral Daily pantoprazole 40 mg Oral Daily heparin (porcine) 5,000 Units Subcutaneous 3 times per day Continuous Infusions: Home Meds: Prior to Admission medications Medication Sig Start Date End Date Taking? Authorizing Provider atorvastatin (LIPITOR) 40 MG tablet Take 40 mg by mouth daily Yes Historical Provider, vitamin B-12 (CYANOCOBALAMIN) 500 MCG tablet Take 500 mcg by mouth daily Yes Historical Provider, ferrous sulfate (IRON 325) 325 (65 Fe) MG tablet Take 325 mg by mouth daily (with breakfast) Yes Historical Provider, doxycycline hyclate (VIBRA-TABS) 100 MG tablet Take 100 mg by mouth daily Yes Historical Provider, levothyroxine (SYNTHROID) 50 MCG tablet Take 50 mcg by mouth Daily Yes Historical Provider, zinc gluconate 50 MG tablet Take 50 mg by mouth daily Yes Historical Provider, amiodarone (CORDARONE) 200 MG tablet Take 200 mg by mouth daily Yes Historical Provider, aspirin 81 MG EC tablet Take 81 mg by mouth daily Yes Historical Provider, pantoprazole (PROTONIX) 40 MG tablet Take 40 mg by mouth daily Yes Historical Provider, balsalazide (COLAZAL) 750 MG capsule Take 750 mg by mouth daily Yes Historical Provider, apixaban (ELIQUIS) 2.5 MG TABS tablet Take 2.5 mg by mouth daily Yes Historical Provider, lisinopril (PRINIVIL;ZESTRIL) 20 MG tablet Take 20 mg by mouth daily Yes Historical Provider, metoprolol tartrate (LOPRESSOR) 25 MG tablet Take 25 mg by mouth daily Yes Historical Provider, Physical Exam General: No acute distress CV: Regular rate Pulm: Equal breath sounds bilaterally, right pigtail catheter to suction, serosanguinous drainage, no air leak Abd: Soft, NT, ND Neuro: Awake, alert, oriented Diet: DIET CARDIAC; Problem List: Active Problems: Parapneumonic effusion Resolved Problems: * No resolved hospital problems. * Assessment and Plan: 80-year-old male with right-sided empyema s/p thoracentesis 09/11, IR pigtail catheter placement 09/12, and tPA administration 09/13, 09/14, and 09/16 - Persistent right basilar effusion on CXR this morning - Concern for lung entrapment - tPA 2mg administered via pigtail catheter this morning - Will consider redosing tPA tomorrow - If no clinical improvement with tPA this weekend, will plan for right VATS, possible thoracotomy,with decortication and drainage on Friday, 09/19 - Plan of care discussed with the patient and his , Leonor, by phone - Pain control with scheduled Tylenol. Oxycodone / Dilaudid PRN. - Continue ceftriaxone / Flagyl per ID - Pleural fluid cx 09/12: NGTD. Blood cx 09/11: NGTD. - Pleural fluid cytology pending - Scheduled DuoNebs. IS / Acapella. - Hx Aflutter. Continue to hold Eliquis. Last dose 09/08. - Cardiac diet as tolerated - MYRON improving. Creatinine 1.99 from 2.27. Nephrology following. - DVT ppx: SCDs / Heparin - Medical management per primary - Will continue to follow Kylah Liz MD Disclaimers: INFORMED CONSENT: The nature and purpose of the proposed treatment and/or procedure have been discussed. The risks and benefits of the proposed treatment or procedures have been reviewed. Alternatives have been reviewed in addition to the risks and benefits of not receiving treatments or undergoingprocedures. Pursuant to this discussion, the patient agrees to undergo the proposed treatment or procedure. Captured images seen in this note are not a substitute for a comprehensive interpretation of the entire data set as reflected by the interpreting physician with regard to radiology, echocardiography,and other diagnostic images. This note may have been dictated using [employer] Medical Practice Edition 2.6 and/or [employer] Voice Recognition Feature. The document was proofread; however, unrecognized voice recognition dinkey engine mechanic errors may be present. Associated attestation - Kassandra Davidson MD - 09/16/2020 6:00 PM EDT DOS: 09/16/2020 I personally performed a face to face diagnostic evaluation on this patient. I agree with the findings and plan of care as documented by the resident/ASSISTANT STORE MANAGER OPERATIONS/ENTERPRISE MANAGER/PA, unless otherwise noted. Kassandra Davidson MD Cardiothoracic Surgery * Marleny Weston RN - 09/15/2020 6:06 PM EDT Jeremy Clay([phone])called and given update. He would like to be contacted in regards to discharge planning. He or his brother James([phone]) will be helping the patient out at home. * Erasmo Schrader MD - 09/15/2020 5:12 PM EDT [facility] [address] [place] [address] Progress Note Subjective: Patient seen and examined today. We are following this patient for myron Denies sob/cp no c/o Scheduled Meds: cefTRIAXone (ROCEPHIN) IV 1,000 mg Intravenous Q24H metroNIDAZOLE 500 mg Oral 2 times per day ipratropium-albuterol 1 ampule Inhalation TID acetaminophen 1,000 mg Oral 3 times per day thiamine mononitrate 100 mg Oral Daily sodium chloride flush 10 mL Intravenous 2 times per day atorvastatin 40 mg Oral Nightly levothyroxine 50 mcg Oral Daily metoprolol tartrate 25 mg Oral Daily pantoprazole 40 mg Oral Daily heparin (porcine) 5,000 Units Subcutaneous 3 times per day Continuous Infusions: PRN Meds:ipratropium-albuterol, HYDROmorphone OR HYDROmorphone, oxyCODONE OR oxyCODONE, LORazepam, sodium chloride flush, promethazine OR [DISCONTINUED] ondansetron, polyethylene glycol, benzonatate Vitals: BP (!) 124/57 Pulse 56 Temp 98 F (36.7 C) (Temporal) Resp 16 Ht 5' 11 (1.803 m) Wt 179 lb 8 oz (81.4 kg) SpO2 99% BMI 25.04 kg/m BLOOD PRESSURE RANGE: Systolic (24hrs), Av , Min:106 , Max:155 ; Diastolic (24hrs), Av, Min:53, Max:83 24HR INTAKE/OUTPUT: Intake/Output Summary (Last 24 hours) at 09/15/2020 1712 Last data filed at 09/15/2020 1200 Gross per 24 hour Intake 450 ml Output 600 ml Net -150 ml Physical exam: GENERAL well developed , no distress ENMT lips pink oral mucosa moist EYES sclerae white PERRL LUNGS clear to auscultation no wheezing no crackles respirations are even and unlaboured CARDIAC RRR S1 S2 no rubs, murmurs or gallops ABDOMEN soft nontender BS present in all four quadrants EXTREMITIES no LE edema NEURO alert awake Data: Labs: Recent Labs 09/13/208 09/15/20 0154 WBC 6.1 -- HGB 9.9* 10.7* HCT 30.0* 32.9* MCV 101.1* -- PLT 131* -- Recent Labs 09/13/20 0218 09/14/20 0146 09/15/20 0154 NA 139 135 138 134* K 3.2* 3.2* 3.7 4.0 CL 110* 108* 110* 106 CO2 21* 21* 20* 19* GLUCOSE 139* 136* 129* 105* BUN 79* 76* 70* 68* CREATININE 2.35* 2.32* 2.24* 2.27* Ionized Calcium: No results found for: IONCA Magnesium: Lab Results Component Value Date MG 2.1 09/11/2020 Phosphorus: Lab Results Component Value Date PHOS 4.5 09/11/2020 U/A: Lab Results Component Value Date COLORU Yellow 09/12/2020 WBCUA 0-2 09/12/2020 RBCUA 0-2 09/12/2020 BACTERIA Negative 09/12/2020 LEUKOCYTESUR Negative 09/12/2020 UROBILINOGEN Normal 09/12/2020 BILIRUBINUR Negative 09/12/2020 GLUCOSEU Normal 09/12/2020 Urine Culture: No components found for: CURINE Blood Culture: No components found for: CBLOOD, CFUNGUSBL Blood Culture from Central Line: No components found for: CBLOODLN Urinalysis: Reviewed if applicable Imaging:reviewed if applicable Assessment / Plan: Patient Active Problem List Diagnosis Parapneumonic effusion MYRON unknown baseline B/l renal cysts NAGMA LE edema HFpEF HTN Pleural effusion r/o empyema s/p thoracentesis now with r chest drain Scr 2.27 stable Hold lisinopril abx per primary Avoid nephrotoxins Erasmo Schrader M.D 09/15/2020 5:12 PM * Sha Donws MD - 09/15/2020 2:29 PM EDT Progress Note [facility] Patient - Amaury Blank, Age - 80 y.o. - 1940 Room Number - [id number] N - [id number] Date of Admission - 09/11/2020 8:15 PM ASSESSMENT Complicated parapneumonic effusion with concern for empyema s/p thoracocentesis + drain placement MYRON B/l infiltrates concern for PNA, community acquired versus aspiration HFpEF Afib PLAN --pleural fluid cx; ngtd --CAP antigen negative --MRSA nares negative --start ceftriaxone + flagyl --check pleural fluid cell count Will likely need PICC line on d/c Anticipate staying through the weekend SUBJECTIVE: ROS with patient/RN unless stated otherwise Afebrile, no wbc, pleural fluid cx- ngtd OBJECTIVE VITALS height is 5' 11 (1.803 m) and weight is 179 lb 8 oz (81.4 kg). His temporal temperature is 98 F (36.7 C). His blood pressure is 124/57 (abnormal) and his pulse is 56. His respiration is 17 and oxygen saturation is 100%. Temp (24hrs), Av.7 F (36.5 C), Min:96.8 F (36 C), Max:99.2 F (37.3 C) General Appearance: Alert, NAD HEENT: wnl Neck: Supple Lungs: Clear to auscultation b/l on room air, right chest tube draining purulent fluid Cardiovascular: RRR Abdomen: Soft NT, ND, BS+ : no CVAT. No koenig Neurologic: wnl Skin: No rashes Extremities: No edema, No joint inflammation Lines: sites clean MEDICATIONS: cefTRIAXone (ROCEPHIN) IV 1,000 mg Intravenous Q24H metroNIDAZOLE 500 mg Oral 2 times per day ipratropium-albuterol 1 ampule Inhalation TID acetaminophen 1,000 mg Oral 3 times per day thiamine mononitrate 100 mg Oral Daily sodium chloride flush 10 mL Intravenous 2 times per day atorvastatin 40 mg Oral Nightly levothyroxine 50 mcg Oral Daily metoprolol tartrate 25 mg Oral Daily pantoprazole 40 mg Oral Daily heparin (porcine) 5,000 Units Subcutaneous 3 times per day LABS: CBC: Recent Labs 09/13/20 0218 09/15/20 0154 WBC 6.1 -- HGB 9.9* 10.7* PLT 131* -- BMP: Recent Labs 09/13/20 0218 09/14/20 0146 09/15/20 0154 NA 139 135 138 134* K 3.2* 3.2* 3.7 4.0 CL 110* 108* 110* 106 CO2 21* 21* 20* 19* BUN 79* 76* 70* 68* CREATININE 2.35* 2.32* 2.24* 2.27* GLUCOSE 139* 136* 129* 105* Hepatic: No results for input(s): ALKPHOS, ALT, AST, PROT, BILITOT, LABALBU in the last 72 hours. Lactic Acid: No results for input(s): LACTA in the last 72 hours. MICROBIOLOGY: No results for input(s): BC in the last 72 hours. IMAGING: CT chest 09/13 reviewed Sha Downs MD [place] ID Pager: [phone] 09/15/2020 2:29 PM * Genesis Wayne - 09/15/2020 1:15 PM EDT Physical Therapy Facility/Department: [facility] Initial Assessment NAME: Amaury Blank : 1940 Date of Service: 09/15/2020 Discharge Recommendations: Home with Home health PT, Home with assist PRN Assessment Body structures, Functions, Activity limitations: Decreased strength;Decreased functional mobility Assessment: Pt presents with right-sided empyema s/p thoracentesis 09/11, IR pigtail catheter placement 09/12, and tPA administration 09/13 & 09/14. Pt demonstrates strength deficits. Pt elevated HOBto perform bed mobility requiring supervision for supine to sit and modified independence for sit to supine. Pt required dependent x 2 (PT and SPT) to position pt properly in bed. Pt ambulated 5 feetwith stand by assist and FWW. Pt was limited on distance due to the suction for the chest tube drain needied to stay attached. Pt would benefit from home with home PT and help as needed at discharge. Prognosis: Good Decision Making: Medium Complexity PT Education: Goals;PT Role;Plan of Care;Functional Mobility Training;Gait Training REQUIRES PT FOLLOW UP: Yes Activity Tolerance Activity Tolerance: Patient Tolerated treatment well(Pt limited by chest tube hooked up to suction) Patient Diagnosis(es): There were no encounter diagnoses. has a past medical history of Atrial fibrillation/flutter (HCC), CAD (coronary artery disease), History of GI bleed, Hypertension, and UC (ulcerative colitis) ([facility]). has a past surgical history that includes Coronary artery bypass graft and CT GUIDED PLEURAL DRAINAGE W CATH PERC (09/12/2020). Restrictions Restrictions/Precautions Restrictions/Precautions: Fall Risk, Up as Tolerated(Chest tube) Required Braces or Orthoses?: No Vision/Hearing Vision: (Pt reports he has bifocal glasses currently) Hearing Exceptions: Bilateral hearing aid Subjective General Chart Reviewed: Yes Patient assessed for rehabilitation services?: Yes Family / Caregiver Present: No Follows Commands: Within Functional Limits Subjective Subjective: Pt was supine in bed and agreeable to therapy. Pain Screening Patient Currently in Pain: No Pain Assessment Pain Assessment: 0-10 Pain Level: 0 Vital Signs Patient Currently in Pain: No Orientation Orientation Overall Orientation Status: Within Functional Limits Social/Functional History Social/Functional History Lives With: Spouse Type of Home: House Home Layout: One level, Laundry in basement, Work area in basement Home Access: Stairs to enter without rails(Pt states he uses car and door to help get in and out ofhouse) Entrance Stairs - Number of Steps: 2 Bathroom Shower/Tub: Tub/Shower unit Bathroom Toilet: Standard Bathroom Equipment: Grab bars in shower, Shower chair Bathroom Accessibility: Accessible Home Equipment: Rolling walker, Roll About(Pt states he usually is independent, but the past two weeks he has needed it to ambulate.) Receives Help From: Family ADL Assistance: Independent Homemaking Assistance: Independent Homemaking Responsibilities: Yes Ambulation Assistance: Independent Transfer Assistance: Independent Active Gear Nicker: Yes Mode of Transportation: Car Occupation: Retired Additional Comments: NA Cognition Cognition Overall Cognitive Status: WFL Objective Observation/Palpation Posture: Fair AROM RLE (degrees) RLE AROM: WFL AROM LLE (degrees) LLE AROM : WFL AROM RUE (degrees) RUE AROM : WFL AROM LUE (degrees) LUE AROM : WFL Strength RLE Strength RLE: WFL Comment: 3+/5 Strength LLE Strength LLE: WFL Comment: 3+/5 Strength RUE Strength RUE: WFL Comment: Shoulder flexion 3+/5; Elbow flexion and extension 4-/5 Strength LUE Strength LUE: WFL Comment: Shoulder flexion 3+/5; Elbow flexion and extension 4-/5 Tone RLE RLE Tone: Not tested Tone LLE LLE Tone: Not tested Motor Control Gross Motor?: WFL Sensation Overall Sensation Status: (Pt reports no numbness/tingling) Bed mobility Supine to Sit: Supervision(Pt raised HOB) Sit to Supine: Modified independent(HOB was raised) Scooting: Dependent/Total(PT and SPT positioned pt up the bed.) Transfers Sit to Stand: Stand by assistance Stand to sit: Stand by assistance Ambulation Ambulation?: Yes WB Status: No restrictions More Ambulation?: No Ambulation 1 Surface: level tile Device: Rolling Walker Assistance: Stand by assistance Gait Deviations: Slow Kiarra;Decreased step length;Decreased step height Distance: 5 feet Comments: Pt was limited due to chest tube suction Stairs/Curb Stairs?: No Balance Posture: Fair Sitting - Static: Good Sitting - Dynamic: Fair;+ Standing - Static: Fair;+ Standing - Dynamic: Fair;+ Plan Plan Times per week: 3-5 Plan weeks: 2 weeks Current Treatment Recommendations: Strengthening, Balance Training, Functional Mobility Training, Transfer Training, Stair training, Gait Training, Endurance Training, Positioning, Patient/Caregiver Education & Training, Safety Education & Training, Home Exercise Program Safety Devices Type of devices: All fall risk precautions in place, Call light within reach, Patient at risk for falls, Left in bed(Gait belt was unable to be used due to location of chest tube drain) G-Code OutComes Score AM-PAC Score AM-PAC Inpatient Mobility Raw Score : 17 (09/15/20 1315) AM-PAC Inpatient T-Scale Score : 42.13 (09/15/20 131) Mobility Inpatient CMS 0-100% Score: 50.57 (09/15/201314) Mobility Inpatient CMS G-Code Modifier : CK (09/15/20 9065) Goals Short term goals Time Frame for Short term goals: 2 weeks Short term goal 1: Ambulate 100 feet with modified independence and least restrictive device Short term goal 2: Negotiate a flight of stairs with supervision with left hand rail ascending and a step to pattern Short term goal 3: Scoot/reposition self in bed with modified independence Patient Goals Patient goals : Not stated Therapy Time Individual Concurrent Group Co-treatment Time In 1132 Time Out 1158 Minutes 26 Transfer Plan of care over to [facility] Physical Therapy staff. Goals and/or treatment plan was established in collaboration with pt. No Bed/chair alarm on prior to session and no alarm after session SPT wore gloves and surgical mask Genesis Wayne, SPT Associated attestation - Roman Andres PT - 09/15/2020 3:31 PM EDT Spoke with RN (marleny), she stated order to keep chest tube on suction at all times. SPT was in direct line of sight of PT Pt mildly [place] at times * Oscar Buchanan MD - 09/15/2020 1:11 PM EDT Images from the original note were not included. Hospitalist Progress Note 09/15/2020 1:11 PM [phone]: Please page me for patient care issues. [phone]: Please page [facility] night Hospitalist for any issues. Subjective: Admit Date: 09/11/2020 PCP: No primary care provider on file. Room#: [id number] Interval History: Patient seen and examined No new event overnight Denies any chest pain, cough, sputum, sob No nausea, vomiting No fever spike noted. Blood culture negative CTscan of chest without contrast-1. Large right-sided pleural effusion. Air is noted in the collection suggesting a large empyema. 2. Infiltrate or masslike density in the compressed right lower lobe. 3. 1.5 - 2 cm spiculated cavitary nodule in the left lower lobe. There is atelectasis in the superior segment of the left lower lobe. 4. Renal cysts. DIET CARDIAC; Patient Vitals for the past 96 hrs (Last 3 readings): Weight 09/11/20 2230 179 lb 8 oz (81.4 kg) Medications: cefTRIAXone (ROCEPHIN) IV 1,000 mg Intravenous Q24H metroNIDAZOLE 500 mg Oral 2 times per day ipratropium-albuterol 1 ampule Inhalation TID acetaminophen 1,000 mg Oral 3 times per day thiamine mononitrate 100 mg Oral Daily sodium chloride flush 10 mL Intravenous 2 times per day atorvastatin 40 mg Oral Nightly levothyroxine 50 mcg Oral Daily metoprolol tartrate 25 mg Oral Daily pantoprazole 40 mg Oral Daily heparin (porcine) 5,000 Units Subcutaneous 3 times per day LABS: CBC: Recent Labs 09/13/2021709/15/20 0154 WBC 6.1 -- RBC 2.97* -- HGB 9.9* 10.7* HCT 30.0* 32.9* MCV 101.1* -- RDW 14.4 -- PLT 131* -- BMP: Recent Labs 09/13/2021709/14/20 0146 09/15/20 0154 NA 139 135 138 134* K 3.2* 3.2* 3.7 4.0 CL 110* 108* 110* 106 CO2 21* 21* 20* 19* BUN 79* 76* 70* 68* CREATININE 2.35* 2.32* 2.24* 2.27* GLUCOSE 139* 136* 129* 105* CALCIUM 8.3* 8.3* 8.5 8.3* ANIONGAP 7 6 8 9 LIVER PROFILE: No results for input(s): AST, ALT, BILITOT, ALKPHOS, LABALBU, PROT in the last 72 hours. PT/INR: No results for input(s): PROTIME, INR in the last 72 hours. CARDIAC ENZYMES: No results for input(s): TROPONINI in the last 72 hours. Procalcitonin: Lab Results Component Value Date PROCAL 0.91 09/13/2020 Objective: Vitals: BP 136/77 Pulse 86 Temp 99.2 F (37.3 C) (Temporal) Resp 14 Ht 5' 11 (1.803 m) Wt179 lb 8 oz (81.4 kg) SpO2 96% BMI 25.04 kg/m Pulse Ox: SpO2 Av % Min: 93 % Max: 100 % Supplemental O2: O2 Flow Rate (L/min): 3 L/min General appearance: No apparent distress, HEENT: Eyes: No scleral icterus Pallor noted Oral: Tongue is semi-moist Cardiovascular: S1S2 heard, RRR Respiratory:Decrease breath sound both bases, right side chest tube noted Abdomen: Soft, non-tender, non-distended with normal bowel sounds. Musculoskeletal: No obvious deformities seen Neurology- no focal neurology,Awake alert Extremity- peripheral edema both lower extremities Assessment Right-sided parapneumonic effusion/concerning for empyema status post thoracentesis done on 09/11/2020, drained 1.9 L, fluid consistent with exudative in nature, status post CT-guided right-sided chest drain placement done on 09/12/2020 Masklike density in right lower lobe concerning for pneumonia. 1.5-2 cm spiculated cavitary nodule in left lower lobe Acute kidney injury on chronic kidney disease [baseline creatinine not available] Hypokalemia -replaced Coronary artery disease/coronary artery bypass graft Chronic atrial flutter Macrocytic anemia-B12, folate normal Mild thrombocytopenia Hyperglycemia -A1c 5.6 Chronic heart failure preserved ejection fraction History of hypertension Hyperlipidemia Ulcerative colitis, in remission Hypothyroidism History of daily alcohol use Plan Continue nebulizer treatment as ordered Antibiotics per infectious disease team Nephrology team following BMP panel in a.m. Cardiothoracic surgical team recommendation noted Continue Thiamine , prn ativan. -history of daily alcohol use Eliquis is on hold On deep vein thrombosis prophylaxis with heparin sq On gastrointestinal prophylaxis of Protonix 40 mg daily Continue current treatment Labs ordered for AM PT,OT consulted Patient was informed about all work up and treatment plan Discussed with nursing staff Advance Directive: Limited Discharge planning: OSCAR BUCHANAN MD Division of Hospitalist Medicine Inpatient Medical Services PAGER: [phone] * Kylah Liz MD - 09/15/2020 4:29 AM EDT Images from the original note were not included. Cardiothoracic Surgery Progress Note 09/15/2020 7:09 PM Subjective: Admit Date: 09/11/2020 PCP: No primary care provider on file. Clinical Course IR Right pigtail catheter placement 09/12 tPA 4mg administered 09/13 CT Chest 09/13 - Significant improvement in right pleural effusion. No loculation. tPA 4mg administered 09/14 Interval History No acute events overnight. Afebrile. VSS. Maintaining SpO2 on room air. Pain well controlled. Denies dyspnea. Pigtail catheter output 950cc / 24H. Objective: Vitals: Temp (24hrs), Av.8 F (36.6 C), Min:96.8 F (36 C), Max:99.2 F (37.3 C) BP (!) 124/57 Pulse 56 Temp 98 F (36.7 C) (Temporal) Resp 16 Ht 5' 11 (1.803 m) Wt 179 lb 8 oz (81.4 kg) SpO2 99% BMI 25.04 kg/m I/O: Date 09/15/20 0000 - 09/15/20 2359 Shift 4093-9770 1279-5502 3317-0441 24 Hour Total INTAKE P.O.(mL/kg/hr) 450(0.7) 450 Shift Total(mL/kg) 450(5.5) 450(5.5) OUTPUT Chest Tube 545 164 1402 Shift Total(mL/kg) 600(7.4) 440(5.4) 1040(12.8) Weight (kg) 81.4 81.4 81.4 81.4 Patient Vitals for the past 96 hrs (Last 3 readings): Weight 09/11/20 2230 179 lb 8 oz (81.4 kg) Labs and Diagnostics: (reviewed in EMR) BMP: Recent Labs 09/13/2021709/14/20 0146 09/15/20 0154 NA 139 135 138 134* K 3.2* 3.2* 3.7 4.0 CL 110* 108* 110* 106 CO2 21* 21* 20* 19* BUN 79* 76* 70* 68* CREATININE 2.35* 2.32* 2.24* 2.27* GLUCOSE 139* 136* 129* 105* . CBC: Recent Labs 09/13/2021709/15/20 0154 WBC 6.1 -- HGB 9.9* 10.7* PLT 131* -- INR: Lab Results Component Value Date PROTIME 13.8 09/12/2020 INR 1.3 09/12/2020 Medications: Scheduled Meds: cefTRIAXone (ROCEPHIN) IV 1,000 mg Intravenous Q24H metroNIDAZOLE 500 mg Oral 2 times per day ipratropium-albuterol 1 ampule Inhalation TID acetaminophen 1,000 mg Oral 3 times per day thiamine mononitrate 100 mg Oral Daily sodium chloride flush 10 mL Intravenous 2 times per day atorvastatin 40 mg Oral Nightly levothyroxine 50 mcg Oral Daily metoprolol tartrate 25 mg Oral Daily pantoprazole 40 mg Oral Daily heparin (porcine) 5,000 Units Subcutaneous 3 times per day Continuous Infusions: Home Meds: Prior to Admission medications Medication Sig Start Date End Date Taking? Authorizing Provider atorvastatin (LIPITOR) 40 MG tablet Take 40 mg by mouth daily Yes Historical Provider, vitamin B-12 (CYANOCOBALAMIN) 500 MCG tablet Take 500 mcg by mouth daily Yes Historical Provider, ferrous sulfate (IRON 325) 325 (65 Fe) MG tablet Take 325 mg by mouth daily (with breakfast) Yes Historical Provider, doxycycline hyclate (VIBRA-TABS) 100 MG tablet Take 100 mg by mouth daily Yes Historical Provider, levothyroxine (SYNTHROID) 50 MCG tablet Take 50 mcg by mouth Daily Yes Historical Provider, zinc gluconate 50 MG tablet Take 50 mg by mouth daily Yes Historical Provider, amiodarone (CORDARONE) 200 MG tablet Take 200 mg by mouth daily Yes Historical Provider, aspirin 81 MG EC tablet Take 81 mg by mouth daily Yes Historical Provider, pantoprazole (PROTONIX) 40 MG tablet Take 40 mg by mouth daily Yes Historical Provider, balsalazide (COLAZAL) 750 MG capsule Take 750 mg by mouth daily Yes Historical Provider, apixaban (ELIQUIS) 2.5 MG TABS tablet Take 2.5 mg by mouth daily Yes Historical Provider, lisinopril (PRINIVIL;ZESTRIL) 20 MG tablet Take 20 mg by mouth daily Yes Historical Provider, metoprolol tartrate (LOPRESSOR) 25 MG tablet Take 25 mg by mouth daily Yes Historical Provider, Physical Exam General: No acute distress CV: Regular rate Pulm: Right-sided breath sounds improved, right pigtail catheter to suction, seropurulent output, no air leak Abd: Soft, NT, ND Neuro: Awake, alert, oriented Diet: DIET CARDIAC; Problem List: Active Problems: Parapneumonic effusion Resolved Problems: * No resolved hospital problems. * Assessment and Plan: 80-year-old male with right-sided empyema s/p thoracentesis 09/11, IR pigtail catheter placement 09/12, and tPA administration 09/13 & 09/14 - Right pleural effusion improving on CXR this morning - Right pigtail catheter to remain to suction given continued output - No further tPA administration at this time - Scheduled DuoNebs. IS / Acapella. - Pain control as needed - Continue ceftriaxone / Flagyl per ID - Pleural fluid cx 09/12: NGTD. Blood cx 09/11: NGTD. - Pleural fluid cytology pending - Hx Aflutter. Continue to hold Eliquis. Last dose 09/08. - Cardiac diet as tolerated - MYRON. Creatinine 2.27 from 2.24. Nephrology following. - DVT ppx: SCDs / Heparin - Medical management per primary - Will continue to follow Kylah Liz MD Disclaimers: INFORMED CONSENT: The nature and purpose of the proposed treatment and/or procedure have been discussed. The risks and benefits of the proposed treatment or procedures have been reviewed. Alternatives have been reviewed in addition to the risks and benefits of not receiving treatments or undergoingprocedures. Pursuant to this discussion, the patient agrees to undergo the proposed treatment or procedure. Captured images seen in this note are not a substitute for a comprehensive interpretation of the entire data set as reflected by the interpreting physician with regard to radiology, echocardiography,and other diagnostic images. This note may have been dictated using [employer] Practice Edition 2.6 and/or [employer] Voice Recognition Feature. The document was proofread; however, unrecognized voice recognition dinkey engine mechanic errors may be present. Associated attestation - Kassandra Davidson MD - 09/16/2020 5:45 PM EDT DOS: 09/15/20 I personally performed a face to face diagnostic evaluation on this patient. I agree with the findings and plan of care as documented by the resident/ASSISTANT STORE MANAGER OPERATIONS/ENTERPRISE MANAGER/PA, unless otherwise noted. Kassandra Davidson MD Cardiothoracic Surgery * Erasmo Schrader MD - 09/14/2020 1:26 PM EDT [facility] [address] [place] [address] Progress Note Subjective: Patient seen and examined today. We are following this patient for myron Denies sob/cp no c/o Scheduled Meds: ampicillin-sulbactam 3,000 mg Intravenous Q12H ipratropium-albuterol 1 ampule Inhalation TID acetaminophen 1,000 mg Oral 3 times per day thiamine mononitrate 100 mg Oral Daily doxycycline monohydrate 100 mg Oral 2 times per day sodium chloride flush 10 mL Intravenous 2 times per day vancomycin 1,250 mg Intravenous Q36H atorvastatin 40 mg Oral Nightly levothyroxine 50 mcg Oral Daily metoprolol tartrate 25 mg Oral Daily pantoprazole 40 mg Oral Daily heparin (porcine) 5,000 Units Subcutaneous 3 times per day Continuous Infusions: PRN Meds:ipratropium-albuterol, HYDROmorphone OR HYDROmorphone, oxyCODONE OR oxyCODONE, LORazepam, sodium chloride flush, promethazine OR [DISCONTINUED] ondansetron, polyethylene glycol, benzonatate Vitals: BP (!) 155/84 Pulse 73 Temp 98.1 F (36.7 C) (Temporal) Resp 18 Ht 5' 11 (1.803 m) Wt 179lb 8 oz (81.4 kg) SpO2 98% BMI 25.04 kg/m BLOOD PRESSURE RANGE: Systolic (24hrs), Av , Min:110 , Max:155 ; Diastolic (24hrs), Av, Min:58, Max:84 24HR INTAKE/OUTPUT: Intake/Output Summary (Last 24 hours) at 09/14/2020 1326 Last data filed at 09/14/2020 0827 Gross per 24 hour Intake 1600 ml Output 1080 ml Net 520 ml Physical exam: GENERAL well developed , no distress ENMT lips pink oral mucosa moist EYES sclerae white PERRL LUNGS clear to auscultation no wheezing no crackles respirations are even and unlaboured CARDIAC RRR S1 S2 no rubs, murmurs or gallops ABDOMEN soft nontender BS present in all four quadrants EXTREMITIES no LE edema NEURO alert awake Data: Labs: Recent Labs 09/11/204 09/13/20 0218 WBC 9.1 6.1 HGB 11.0* 9.9* HCT 33.2* 30.0* MCV 100.9* 101.1* PLT 137* 131* Recent Labs 09/11/204 09/13/20 0218 09/14/20 0146 NA 140 139 135 138 K 3.5 3.2* 3.2* 3.7 CL 110* 110* 108* 110* CO2 20* 21* 21* 20* GLUCOSE 117* 139* 136* 129* PHOS 4.5 -- -- MG 2.1 -- -- BUN 77* 79* 76* 70* CREATININE 2.18* 2.35* 2.32* 2.24* Ionized Calcium: No results found for: IONCA Magnesium: Lab Results Component Value Date MG 2.1 09/11/2020 Phosphorus: Lab Results Component Value Date PHOS 4.5 09/11/2020 U/A: Lab Results Component Value Date COLORU Yellow 09/12/2020 WBCUA 0-2 09/12/2020 RBCUA 0-2 09/12/2020 BACTERIA Negative 09/12/2020 LEUKOCYTESUR Negative 09/12/2020 UROBILINOGEN Normal 09/12/2020 BILIRUBINUR Negative 09/12/2020 GLUCOSEU Normal 09/12/2020 Urine Culture: No components found for: CURINE Blood Culture: No components found for: CBLOOD, CFUNGUSBL Blood Culture from Central Line: No components found for: CBLOODLN Urinalysis: Reviewed if applicable Imaging:reviewed if applicable Assessment / Plan: Patient Active Problem List Diagnosis Parapneumonic effusion MYRON unknown baseline B/l renal cysts NAGMA LE edema HFpEF HTN Pleural effusion r/o empyema s/p thoracentesis now with r chest drain Scr 2.24 from 2.35 from 2.18 Hold lisinopril abx per primary rec to dose vanco with levels Avoid nephrotoxins Erasmo Schrader M.D 09/14/2020 1:26 PM * Sha Downs MD - 09/14/2020 12:29 PM EDT Progress Note [facility] Patient - Amaury Blank, Age - 80 y.o. - 1940 Room Number - [id number] N - [id number] [facility] # - [id number] Date of Admission - 09/11/2020 8:15 PM ASSESSMENT Complicated parapneumonic effusion with concern for empyema s/p thoracocentesis + drain placement MYRON B/l infiltrates concern for PNA, community acquired versus aspiration HFpEF Afib PLAN -C/w vancomycin, -d/w uansyn -start cefepime 1 q24 -d/c doxy -pleural fluid cx; ngtd -CAP antigen negative -MRSA nares negative -vanco trough not done today; will reorder F/u urine histoplasma antigen Will optimize vanco dosing. Will likely need PICC line and IV abx on discharge SUBJECTIVE: ROS with patient/RN unless stated otherwise Afebrile, no wbc, pleural fluid cx- ngtd OBJECTIVE VITALS height is 5' 11 (1.803 m) and weight is 179 lb 8 oz (81.4 kg). His oral temperature is 97.5 F (36.4 C). His blood pressure is 120/78 and his pulse is 61. His respiration is 16 and oxygen saturation is 98%. Temp (24hrs), Av.6 F (36.4 C), Min:97.1 F (36.2 C), Max:98.7 F (37.1 C) General Appearance: Alert, NAD HEENT: wnl Neck: Supple Lungs: Clear to auscultation b/l on room air, right chest tube draining purulent fluid Cardiovascular: RRR Abdomen: Soft NT, ND, BS+ : no CVAT. No koenig Neurologic: wnl Skin: No rashes Extremities: No edema, No joint inflammation Lines: sites clean MEDICATIONS: ampicillin-sulbactam 3,000 mg Intravenous Q12H ipratropium-albuterol 1 ampule Inhalation TID acetaminophen 1,000 mg Oral 3 times per day thiamine mononitrate 100 mg Oral Daily doxycycline monohydrate 100 mg Oral 2 times per day sodium chloride flush 10 mL Intravenous 2 times per day vancomycin 1,250 mg Intravenous Q36H atorvastatin 40 mg Oral Nightly levothyroxine 50 mcg Oral Daily metoprolol tartrate 25 mg Oral Daily pantoprazole 40 mg Oral Daily heparin (porcine) 5,000 Units Subcutaneous 3 times per day LABS: CBC: Recent Labs 09/11/20225309/13/20217 WBC 9.1 6.1 HGB 11.0* 9.9* PLT 137* 131* BMP: Recent Labs 09/11/20225309/13/2021709/14/20 0146 NA 140 139 135 138 K 3.5 3.2* 3.2* 3.7 CL 110* 110* 108* 110* CO2 20* 21* 21* 20* BUN 77* 79* 76* 70* CREATININE 2.18* 2.35* 2.32* 2.24* GLUCOSE 117* 139* 136* 129* Hepatic: Recent Labs 09/11/202253 ALKPHOS 147* ALT 24 AST 39 PROT 5.4* BILITOT 1.2 LABALBU 2.8* Lactic Acid: Recent Labs 09/11/202253 LACTA 1.4 MICROBIOLOGY: Recent Labs 09/11/202253 BC No growth at 1 day. No growth at 2 days. No growth at 1 day. No growth at 2 days. IMAGING: CT chest 09/13 reviewed Sha Downs MD [place] ID Pager: [phone] 09/14/2020 12:29 PM * Alessio Robertson MD - 09/14/2020 7:59 AM EDT Images from the original note were not included. Hospitalist Progress Note 09/14/2020 7:59 AM [phone]: Please page me for patient care issues. [phone]: Please page [facility] night Hospitalist for any issues. Subjective: Admit Date: 09/11/2020 PCP: No primary care provider on file. Room#: [id number] Interval History: Patient seen and examined No new event overnight Denies any chest pain, cough, sputum, sob No nausea, vomiting No fever spike noted. Blood culture negative Potassium 3.7, creatinine 2.2 CTscan of chest without contrast-1. Large right-sided pleural effusion. Air is noted in the collection suggesting a large empyema. 2. Infiltrate or masslike density in the compressed right lower lobe. 3. 1.5 - 2 cm spiculated cavitary nodule in the left lower lobe. There is atelectasis in the superior segment of the left lower lobe. 4. Renal cysts. DIET CARDIAC; Patient Vitals for the past 96 hrs (Last 3 readings): Weight 09/11/20 2230 179 lb 8 oz (81.4 kg) Medications: ampicillin-sulbactam 3,000 mg Intravenous Q12H ipratropium-albuterol 1 ampule Inhalation TID acetaminophen 1,000 mg Oral 3 times per day thiamine mononitrate 100 mg Oral Daily doxycycline monohydrate 100 mg Oral 2 times per day sodium chloride flush 10 mL Intravenous 2 times per day vancomycin 1,250 mg Intravenous Q36H atorvastatin 40 mg Oral Nightly levothyroxine 50 mcg Oral Daily metoprolol tartrate 25 mg Oral Daily pantoprazole 40 mg Oral Daily heparin (porcine) 5,000 Units Subcutaneous 3 times per day LABS: CBC: Recent Labs 09/11/20225309/13/208 WBC 9.1 6.1 RBC 3.29* 2.97* HGB 11.0* 9.9* HCT 33.2* 30.0* MCV 100.9* 101.1* RDW 14.3 14.4 PLT 137* 131* BMP: Recent Labs 09/11/20 2254 09/13/20 0218 09/14/20 0146 NA 140 139 135 138 K 3.5 3.2* 3.2* 3.7 CL 110* 110* 108* 110* CO2 20* 21* 21* 20* BUN 77* 79* 76* 70* CREATININE 2.18* 2.35* 2.32* 2.24* GLUCOSE 117* 139* 136* 129* CALCIUM 9.1 8.3* 8.3* 8.5 ANIONGAP 9 7 6 8 LIVER PROFILE: Recent Labs 09/11/20 2254 AST 39 ALT 24 BILITOT 1.2 ALKPHOS 147* LABALBU 2.8* PROT 5.4* PT/INR: Recent Labs 09/12/20 0929 PROTIME 13.8* INR 1.3* CARDIAC ENZYMES: No results for input(s): TROPONINI in the last 72 hours. Procalcitonin: Lab Results Component Value Date PROCAL 0.91 09/13/2020 Objective: Vitals: BP 120/78 Pulse 61 Temp 97.5 F (36.4 C) (Oral) Resp 16 Ht 5' 11 (1.803 m) Wt 179lb 8 oz (81.4 kg) SpO2 99% BMI 25.04 kg/m Pulse Ox: SpO2 Av.9 % Min: 92 % Max: 99 % Supplemental O2: O2 Flow Rate (L/min): 3 L/min General appearance: No apparent distress, HEENT: Eyes: No scleral icterus Pallor noted Oral: Tongue is semi-moist Cardiovascular: S1S2 heard, RRR Respiratory:Decrease breath sound both bases, right side chest tube noted Abdomen: Soft, non-tender, non-distended with normal bowel sounds. Musculoskeletal: No obvious deformities seen Neurology- no focal neurology,Awake alert Extremity- peripheral edema both lower extremities Assessment Right-sided parapneumonic effusion/concerning for empyema status post thoracentesis done on 09/11/2020, drained 1.9 L, fluid consistent with exudative in nature, status post CT-guided right-sided chest drain placement done on 09/12/2020 Masklike density in right lower lobe concerning for pneumonia. 1.5-2 cm spiculated cavitary nodule in left lower lobe Acute kidney injury on chronic kidney disease [baseline creatinine not available] Hypokalemia -replaced Coronary artery disease/coronary artery bypass graft Chronic atrial flutter Macrocytic anemia-B12, folate normal Mild thrombocytopenia Hyperglycemia -A1c 5.6 Chronic heart failure preserved ejection fraction History of hypertension Hyperlipidemia Ulcerative colitis, in remission Hypothyroidism History of daily alcohol use Plan Continue nebulizer treatment as ordered Antibiotics per infectious disease team Nephrology team following BMP panel in a.m. Cardiothoracic surgical team recommendation noted Continue Thiamine , prn ativan. -history of daily alcohol use Eliquis is on hold On deep vein thrombosis prophylaxis with heparin sq On gastrointestinal prophylaxis of Protonix 40 mg daily Continue current treatment Labs ordered for AM PT,OT consulted Patient was informed about all work up and treatment plan Discussed with nursing staff Advance Directive: Limited Discharge planning: Alessio Robertson MD Division of Hospitalist Medicine Inpatient Medical Services PAGER: [phone] * Cesario Ruffin RN - 09/14/2020 6:36 AM EDT Pigtail drain unclamped per order * Kylah Liz MD - 09/14/2020 4:36 AM EDT Images from the original note were not included. Cardiothoracic Surgery Progress Note 09/14/2020 7:21 AM Subjective: Admit Date: 09/11/2020 PCP: No primary care provider on file. Clinical Course IR Right pigtail catheter placement 09/12 tPA 4mg administered 09/13 CT Chest 09/13 - Significant improvement in right pleural effusion. No loculation. tPA 4mg administered 09/14 Interval History No acute events overnight. Afebrile. VSS. Maintaining SpO2 on room air. Pain well controlled. Denies dyspnea. Right pigtail catheter output 555cc / 24H. tPA 4mg administered via pigtail catheter this morning. Objective: Vitals: Temp (24hrs), Av.6 F (36.4 C), Min:97.1 F (36.2 C), Max:98.7 F (37.1 C) BP 120/78 Pulse 61 Temp 97.6 F (36.4 C) (Temporal) Resp 16 Ht 5' 11 (1.803 m) Wt 179 lb 8 oz (81.4 kg) SpO2 99% BMI 25.04 kg/m I/O: Date 09/14/20 - 09/14/20 2354 Shift 0420-8152 1146-0467 7616-1512 24 Hour Total INTAKE P.O.(mL/kg/hr) 500 500 I.V.(mL/kg) 100(1.2) 100(1.2) Shift Total(mL/kg) 600(7.4) 600(7.4) OUTPUT Urine(mL/kg/hr) 350 350 Chest Tube 180 180 Shift Total(mL/kg) 530(6.5) 530(6.5) Weight (kg) 81.4 81.4 81.4 81.4 Patient Vitals for the past 96 hrs (Last 3 readings): Weight 09/11/20 2230 179 lb 8 oz (81.4 kg) Labs and Diagnostics: (reviewed in EMR) BMP: Recent Labs 09/11/20225309/13/2021709/14/20 014 NA 140 139 135 138 K 3.5 3.2* 3.2* 3.7 CL 110* 110* 108* 110* CO2 20* 21* 21* 20* BUN 77* 79* 76* 70* CREATININE 2.18* 2.35* 2.32* 2.24* GLUCOSE 117* 139* 136* 129* . CBC: Recent Labs 09/11/20225309/13/20217 WBC 9.1 6.1 HGB 11.0* 9.9* PLT 137* 131* Hepatic: Recent Labs 09/11/202253 AST 39 ALT 24 BILITOT 1.2 ALKPHOS 147* INR: Lab Results Component Value Date PROTIME 13.8 09/12/2020 INR 1.3 09/12/2020 Medications: Scheduled Meds: ampicillin-sulbactam 3,000 mg Intravenous Q12H ipratropium-albuterol 1 ampule Inhalation TID acetaminophen 1,000 mg Oral 3 times per day thiamine mononitrate 100 mg Oral Daily doxycycline monohydrate 100 mg Oral 2 times per day sodium chloride flush 10 mL Intravenous 2 times per day vancomycin 1,250 mg Intravenous Q36H atorvastatin 40 mg Oral Nightly levothyroxine 50 mcg Oral Daily metoprolol tartrate 25 mg Oral Daily pantoprazole 40 mg Oral Daily heparin (porcine) 5,000 Units Subcutaneous 3 times per day Continuous Infusions: Home Meds: Prior to Admission medications Medication Sig Start Date End Date Taking? Authorizing Provider atorvastatin (LIPITOR) 40 MG tablet Take 40 mg by mouth daily Yes Historical Provider, vitamin B-12 (CYANOCOBALAMIN) 500 MCG tablet Take 500 mcg by mouth daily Yes Historical Provider, ferrous sulfate (IRON 325) 325 (65 Fe) MG tablet Take 325 mg by mouth daily (with breakfast) Yes Historical Provider, doxycycline hyclate (VIBRA-TABS) 100 MG tablet Take 100 mg by mouth daily Yes Historical Provider, levothyroxine (SYNTHROID) 50 MCG tablet Take 50 mcg by mouth Daily Yes Historical Provider, zinc gluconate 50 MG tablet Take 50 mg by mouth daily Yes Historical Provider, amiodarone (CORDARONE) 200 MG tablet Take 200 mg by mouth daily Yes Historical Provider, aspirin 81 MG EC tablet Take 81 mg by mouth daily Yes Historical Provider, pantoprazole (PROTONIX) 40 MG tablet Take 40 mg by mouth daily Yes Historical Provider, balsalazide (COLAZAL) 750 MG capsule Take 750 mg by mouth daily Yes Historical Provider, apixaban (ELIQUIS) 2.5 MG TABS tablet Take 2.5 mg by mouth daily Yes Historical Provider, lisinopril (PRINIVIL;ZESTRIL) 20 MG tablet Take 20 mg by mouth daily Yes Historical Provider, metoprolol tartrate (LOPRESSOR) 25 MG tablet Take 25 mg by mouth daily Yes Historical Provider, Physical Exam General: No acute distress CV: Regular rate Pulm: Right-sided breath sounds improved, right pigtail catheter to suction, seropurulent output, no air leak Abd: Soft, NT, ND Neuro: Awake, alert, oriented Diet: DIET CARDIAC; Problem List: Active Problems: Parapneumonic effusion Resolved Problems: * No resolved hospital problems. * Assessment and Plan: 80-year-old male with right-sided empyema s/p thoracentesis 09/11, IR pigtail catheter placement 09/12, and tPA administration 09/13 & 09/14 - CT Chest yesterday demonstrated significant improvement in right pleural effusion without evidence of loculation. - No plan for surgical intervention at this time - 4mg tPA administered via pigtail catheter this morning - CXR improved this morning - Right pigtail catheter to suction. Monitor output. - Scheduled DuoNebs. IS / Acapella. - Pain control as needed - Continue vancomycin / Unasyn / doxycycline per ID - Hx Aflutter. Continue to hold Eliquis. Last dose 09/08. - Cardiac diet as tolerated - MYRON. Nephrology following. - DVT ppx: SCDs / Heparin - Medical management per primary - Will continue to follow Kylah Liz MD Disclaimers: INFORMED CONSENT: The nature and purpose of the proposed treatment and/or procedure have been discussed. The risks and benefits of the proposed treatment or procedures have been reviewed. Alternatives have been reviewed in addition to the risks and benefits of not receiving treatments or undergoingprocedures. Pursuant to this discussion, the patient agrees to undergo the proposed treatment or procedure. Captured images seen in this note are not a substitute for a comprehensive interpretation of the entire data set as reflected by the interpreting physician with regard to radiology, echocardiography,and other diagnostic images. This note may have been dictated using [facility] [employer] Practice Edition 2.6 and/or [employer] Voice Recognition Feature. The document was proofread; however, unrecognized voice recognition dinkey engine mechanic errors may be present. Associated attestation - Kassandra Davidson MD - 09/14/2020 10:32 AM EDT DOS: 09/14/2020 I personally performed a face to face diagnostic evaluation on this patient. I agree with the findings and plan of care as documented by the resident/ASSISTANT STORE MANAGER OPERATIONS/ENTERPRISE MANAGER/PA, unless otherwise noted. Good response to alteplase yesterday Administered tPA again today Discussed other potential etiologies (most concerning will be pleural malignancy) However, so far, it is a para-pneumonic effusion from a presumed pneumonia. He will need a repeat CT at a much later interval after resolution of his acute process. Kassandra Davidson MD Cardiothoracic Surgery * Kylah Liz MD - 09/13/2020 6:14 PM EDT Cardiothoracic Surgery Progress Note CT Chest reviewed. Right pleural effusion significantly improved. No evidence of loculation. Right pigtail catheter in appropriate position. Plan to redose tPA via pigtail catheter tomorrow morning. No plan for surgical intervention at this time given improvement. Will continue to observe clinically. Discussed with Dr. Davidson. Kylah Liz MD * Sha Downs MD - 09/13/2020 2:56 PM EDT Progress Note [facility] Patient - Amaury Blank, Age - 80 y.o. - 1940 Room Number - [id number] [facility] - [id number] Date of Admission - 09/11/2020 8:15 PM ASSESSMENT Complicated parapneumonic effusion with concern for empyema s/p thoracocentesis + drain placement MYRON B/l infiltrates concern for PNA, community acquired versus aspiration HFpEF Afib PLAN C/w vancomycin, unasyn and doxy F/u pleural fluid cx CAP antigen negative MRSA nares negative If fluid cx Negative; will consider de escalating therapy tomorrow vanco trough not done today; will reorder F/u urine histoplasma antigen Planned for Possible surgery tomorrow for lung biopsy. SUBJECTIVE: ROS with patient/RN unless stated otherwise Afebrile, no wbc, pleural fluid cx- ngtd OBJECTIVE VITALS height is 5' 11 (1.803 m) and weight is 179 lb 8 oz (81.4 kg). His temporal temperature is 97.5 F (36.4 C). His blood pressure is 141/66 (abnormal) and his pulse is 94. His respiration is 18 and oxygen saturation is 96%. Temp (24hrs), Av.5 F (36.4 C), Min:97 F (36.1 C), Max:98.3 F (36.8 C) General Appearance: Alert, NAD HEENT: wnl Neck: Supple Lungs: Clear to auscultation b/l on room air, right chest tube draining purulent fluid Cardiovascular: RRR Abdomen: Soft NT, ND, BS+ : no CVAT. No koenig Neurologic: wnl Skin: No rashes Extremities: No edema, No joint inflammation Lines: sites clean MEDICATIONS: ampicillin-sulbactam 3,000 mg Intravenous Q12H ipratropium-albuterol 1 ampule Inhalation TID acetaminophen 1,000 mg Oral 3 times per day thiamine mononitrate 100 mg Oral Daily doxycycline monohydrate 100 mg Oral 2 times per day sodium chloride flush 10 mL Intravenous 2 times per day vancomycin 1,250 mg Intravenous Q36H atorvastatin 40 mg Oral Nightly levothyroxine 50 mcg Oral Daily metoprolol tartrate 25 mg Oral Daily pantoprazole 40 mg Oral Daily heparin (porcine) 5,000 Units Subcutaneous 3 times per day LABS: CBC: Recent Labs 09/11/20 2254 09/13/20 0218 WBC 9.1 6.1 HGB 11.0* 9.9* PLT 137* 131* BMP: Recent Labs 09/11/204 09/13/20 0218 NA 140 139 135 K 3.5 3.2* 3.2* CL 110* 110* 108* CO2 20* 21* 21* BUN 77* 79* 76* CREATININE 2.18* 2.35* 2.32* GLUCOSE 117* 139* 136* Hepatic: Recent Labs 09/11/202253 ALKPHOS 147* ALT 24 AST 39 PROT 5.4* BILITOT 1.2 LABALBU 2.8* Lactic Acid: Recent Labs 09/11/202253 LACTA 1.4 MICROBIOLOGY: Recent Labs 09/11/202253 BC No growth at 1 day. No growth at 1 day. IMAGING: CT chest 09/13 reviewed Sha Downs MD [facility] Pager: [phone] 09/13/2020 2:57 PM * Erasmo Schrader MD - 09/13/2020 2:12 PM EDT [facility] [address] [place] [address] Progress Note Subjective: Patient seen and examined today. We are following this patient for myron Denies sob/cp no c/o Scheduled Meds: ampicillin-sulbactam 3,000 mg Intravenous Q12H balsalazide 750 mg Oral Daily ipratropium-albuterol 1 ampule Inhalation TID acetaminophen 1,000 mg Oral 3 times per day thiamine mononitrate 100 mg Oral Daily doxycycline monohydrate 100 mg Oral 2 times per day sodium chloride flush 10 mL Intravenous 2 times per day vancomycin 1,250 mg Intravenous Q36H atorvastatin 40 mg Oral Nightly levothyroxine 50 mcg Oral Daily metoprolol tartrate 25 mg Oral Daily pantoprazole 40 mg Oral Daily heparin (porcine) 5,000 Units Subcutaneous 3 times per day Continuous Infusions: PRN Meds:ipratropium-albuterol, HYDROmorphone OR HYDROmorphone, oxyCODONE OR oxyCODONE, LORazepam, sodium chloride flush, promethazine OR [DISCONTINUED] ondansetron, polyethylene glycol, benzonatate Vitals: BP (!) 141/66 Pulse 94 Temp 97.5 F (36.4 C) (Temporal) Resp 18 Ht 5' 11 (1.803 m) Wt 179lb 8 oz (81.4 kg) SpO2 96% BMI 25.04 kg/m BLOOD PRESSURE RANGE: Systolic (24hrs), Av , Min:102 , Max:141 ; Diastolic (24hrs), Av, Min:49, Max:71 24HR INTAKE/OUTPUT: Intake/Output Summary (Last 24 hours) at 09/13/2020 1413 Last data filed at 09/13/2020 1002 Gross per 24 hour Intake 600 ml Output 1645 ml Net -1045 ml Physical exam: GENERAL well developed , no distress ENMT lips pink oral mucosa moist EYES sclerae white PERRL LUNGS clear to auscultation no wheezing no crackles respirations are even and unlaboured CARDIAC RRR S1 S2 no rubs, murmurs or gallops ABDOMEN soft nontender BS present in all four quadrants EXTREMITIES no LE edema NEURO alert awake Data: Labs: Recent Labs 09/11/20225309/13/20217 WBC 9.1 6.1 HGB 11.0* 9.9* HCT 33.2* 30.0* MCV 100.9* 101.1* PLT 137* 131* Recent Labs 09/11/20225309/13/20217 NA 140 139 135 K 3.5 3.2* 3.2* CL 110* 110* 108* CO2 20* 21* 21* GLUCOSE 117* 139* 136* PHOS 4.5 -- MG 2.1 -- BUN 77* 79* 76* CREATININE 2.18* 2.35* 2.32* Ionized Calcium: No results found for: IONCA Magnesium: Lab Results Component Value Date MG 2.1 09/11/2020 Phosphorus: Lab Results Component Value Date PHOS 4.5 09/11/2020 U/A: Lab Results Component Value Date COLORU Yellow 09/12/2020 WBCUA 0-2 09/12/2020 RBCUA 0-2 09/12/2020 BACTERIA Negative 09/12/2020 LEUKOCYTESUR Negative 09/12/2020 UROBILINOGEN Normal 09/12/2020 BILIRUBINUR Negative 09/12/2020 GLUCOSEU Normal 09/12/2020 Urine Culture: No components found for: CURINE Blood Culture: No components found for: CBLOOD, CFUNGUSBL Blood Culture from Central Line: No components found for: CBLOODLN Urinalysis: Reviewed if applicable Imaging:reviewed if applicable Assessment / Plan: Patient Active Problem List Diagnosis Parapneumonic effusion MYRON unknown baseline B/l renal cysts NAGMA LE edema HFpEF HTN Pleural effusion r/o empyema s/p thoracentesis now with r chest drain Scr 2.35 from 2.18 Hold lisinopril abx per primary rec to dose vanco with levels UA bland not suggestive of IR-GN or AIN No significant proteinuria per spot Replace K and monitor Avoid nephrotoxins Erasmo Schrader M.D 09/13/2020 2:13 PM * Mercedes Lai - 09/13/2020 10:14 AM EDT Nutrition rescreen completed. Chart reviewed. Patient to be monitored and followed by the diet tool grinding technician. MERARY Lara * Alessio Robertson MD - 09/13/2020 9:16 AM EDT Images from the original note were not included. Hospitalist Progress Note 09/13/2020 9:16 AM [phone]: Please page me for patient care issues. [phone]: Please page [facility] night Hospitalist for any issues. Subjective: Admit Date: 09/11/2020 PCP: No primary care provider on file. Room#: [id number] Interval History: Patient seen and examined No new event overnight Denies any chest pain, cough, sputum, sob No nausea, vomiting No fever spike noted. Potassium 3.2, creatinine 2.3, sodium 135 Pro-Anand 0.91, CRP 148, A1c 5.6 Thyroid-stimulating hormone 1.6, hemoglobin 9.9, B12, folate normal Urine Legionella/streptococcal urinary antigen negative CTscan of chest without contrast-IMPRESSION: 1. Large right-sided pleural effusion. Air is noted in the collection suggesting a large empyema. 2. Infiltrate or masslike density in the compressed right lower lobe. 3. 1.5 - 2 cm spiculated cavitary nodule in the left lower lobe. There is atelectasis in the superior segment of the left lower lobe. 4. Renal cysts. DIET CARDIAC; Patient Vitals for the past 96 hrs (Last 3 readings): Weight 09/11/20 2230 179 lb 8 oz (81.4 kg) Medications: ampicillin-sulbactam 3,000 mg Intravenous Q12H potassium chloride 40 mEq Oral Once balsalazide 750 mg Oral Daily ipratropium-albuterol 1 ampule Inhalation TID acetaminophen 1,000 mg Oral 3 times per day thiamine mononitrate 100 mg Oral Daily doxycycline monohydrate 100 mg Oral 2 times per day sodium chloride flush 10 mL Intravenous 2 times per day vancomycin 1,250 mg Intravenous Q36H atorvastatin 40 mg Oral Nightly levothyroxine 50 mcg Oral Daily metoprolol tartrate 25 mg Oral Daily pantoprazole 40 mg Oral Daily heparin (porcine) 5,000 Units Subcutaneous 3 times per day LABS: CBC: Recent Labs 09/11/20225309/13/20217 WBC 9.1 6.1 RBC 3.29* 2.97* HGB 11.0* 9.9* HCT 33.2* 30.0* MCV 100.9* 101.1* RDW 14.3 14.4 PLT 137* 131* BMP: Recent Labs 09/11/20225309/13/208 NA 140 139 135 K 3.5 3.2* 3.2* CL 110* 110* 108* CO2 20* 21* 21* BUN 77* 79* 76* CREATININE 2.18* 2.35* 2.32* GLUCOSE 117* 139* 136* CALCIUM 9.1 8.3* 8.3* ANIONGAP 9 7 6 LIVER PROFILE: Recent Labs 09/11/202253 AST 39 ALT 24 BILITOT 1.2 ALKPHOS 147* LABALBU 2.8* PROT 5.4* PT/INR: Recent Labs 09/12/20 0929 PROTIME 13.8* INR 1.3* CARDIAC ENZYMES: No results for input(s): TROPONINI in the last 72 hours. Procalcitonin: Lab Results Component Value Date PROCAL 0.91 09/13/2020 Objective: Vitals: BP 128/60 Pulse 76 Temp 97 F (36.1 C) (Temporal) Resp 18 Ht 5' 11 (1.803 m) Wt 179 lb 8 oz (81.4 kg) SpO2 96% BMI 25.04 kg/m Pulse Ox: SpO2 Av % Min: 90 % Max: 99 % Supplemental O2: O2 Flow Rate (L/min): 3 L/min General appearance: No apparent distress, HEENT: Eyes: No scleral icterus Pallor noted Oral: Tongue is semi-moist Cardiovascular: S1S2 heard, RRR Respiratory:Decrease breath sound both bases, right side chest tube noted Abdomen: Soft, non-tender, non-distended with normal bowel sounds. Musculoskeletal: No obvious deformities seen Neurology- no focal neurology,Awake alert Extremity- peripheral edema both lower extremities Assessment Right-sided parapneumonic effusion/concerning for empyema status post thoracentesis done on 09/11/2020, drained 1.9 L, fluid consistent with exudative in nature, status post CT-guided right-sided chest drain placement done on 09/12/2020 Masklike density in right lower lobe concerning for pneumonia. 1.5-2 cm spiculated cavitary nodule in left lower lobe Acute kidney injury on chronic kidney disease [baseline creatinine not available] Hypokalemia Coronary artery disease/coronary artery bypass graft Chronic atrial flutter Macrocytic anemia-B12, folate normal Mild thrombocytopenia Hyperglycemia -A1c 5.6 Chronic heart failure preserved ejection fraction History of hypertension Hyperlipidemia Ulcerative colitis, in remission Hypothyroidism History of daily alcohol use Plan Continue nebulizer treatment as ordered Antibiotics per infectious disease team Nephrology team following BMP panel in a.m. Replace potassium 40 meq x one dose today Cardiothoracic surgical team recommendation noted Continue Thiamine , prn ativan. Patient refusing folic acid On deep vein thrombosis prophylaxis On gastrointestinal prophylaxis of Protonix 40 mg daily Continue current treatment Labs ordered for AM Patient was informed about all work up and treatment plan Discussed with nursing staff Advance Directive: Limited Discharge planning: Alessio Robertson MD Division of Hospitalist Medicine Inpatient Medical Services PAGER: [phone] * Kylah Liz MD - 09/13/2020 4:34 AM EDT Images from the original note were not included. Cardiothoracic Surgery Progress Note 09/13/2020 10:58 AM Subjective: Admit Date: 09/11/2020 PCP: No primary care provider on file. Procedures IR Right pigtail catheter placement 09/12 Interval History No acute events overnight. Afebrile. VSS. Maintaining SpO2 on room air. Pain well controlled. Denies dyspnea and cough. Pigtail catheter output 2370cc / 24H. 4mg tPA administered via pigtail catheter this morning. Objective: Vitals: Temp (24hrs), Av.5 F (36.4 C), Min:97 F (36.1 C), Max:98.3 F (36.8 C) BP 128/60 Pulse 76 Temp 97 F (36.1 C) (Temporal) Resp 16 Ht 5' 11 (1.803 m) Wt 179 lb 8 oz (81.4 kg) SpO2 98% BMI 25.04 kg/m I/O: Date 09/13/20 0000 - 09/13/20 2359 Shift 3712-5617 1452-7422 2726-3245 24 Hour Total INTAKE P.O.(mL/kg/hr) 600 600 Shift Total(mL/kg) 600(7.4) 600(7.4) OUTPUT Urine(mL/kg/hr) 200(0.3) 150 350 Chest Tube 320 175 495 Shift Total(mL/kg) 520(6.4) 325(4) 845(10.4) Weight (kg) 81.4 81.4 81.4 81.4 Patient Vitals for the past 96 hrs (Last 3 readings): Weight 09/11/20 2230 179 lb 8 oz (81.4 kg) Labs and Diagnostics: (reviewed in EMR) BMP: Recent Labs 09/11/20225309/13/20217 NA 140 139 135 K 3.5 3.2* 3.2* CL 110* 110* 108* CO2 20* 21* 21* BUN 77* 79* 76* CREATININE 2.18* 2.35* 2.32* GLUCOSE 117* 139* 136* . CBC: Recent Labs 09/11/20225309/13/20217 WBC 9.1 6.1 HGB 11.0* 9.9* PLT 137* 131* Hepatic: Recent Labs 09/11/20 2254 AST 39 ALT 24 BILITOT 1.2 ALKPHOS 147* INR: Lab Results Component Value Date PROTIME 13.8 09/12/2020 INR 1.3 09/12/2020 Medications: Scheduled Meds: ampicillin-sulbactam 3,000 mg Intravenous Q12H balsalazide 750 mg Oral Daily ipratropium-albuterol 1 ampule Inhalation TID acetaminophen 1,000 mg Oral 3 times per day thiamine mononitrate 100 mg Oral Daily doxycycline monohydrate 100 mg Oral 2 times per day sodium chloride flush 10 mL Intravenous 2 times per day vancomycin 1,250 mg Intravenous Q36H atorvastatin 40 mg Oral Nightly levothyroxine 50 mcg Oral Daily metoprolol tartrate 25 mg Oral Daily pantoprazole 40 mg Oral Daily heparin (porcine) 5,000 Units Subcutaneous 3 times per day Continuous Infusions: Home Meds: Prior to Admission medications Medication Sig Start Date End Date Taking? Authorizing Provider atorvastatin (LIPITOR) 40 MG tablet Take 40 mg by mouth daily Yes Historical Provider, vitamin B-12 (CYANOCOBALAMIN) 500 MCG tablet Take 500 mcg by mouth daily Yes Historical Provider, ferrous sulfate (IRON 325) 325 (65 Fe) MG tablet Take 325 mg by mouth daily (with breakfast) Yes Historical Provider, doxycycline hyclate (VIBRA-TABS) 100 MG tablet Take 100 mg by mouth daily Yes Historical Provider, levothyroxine (SYNTHROID) 50 MCG tablet Take 50 mcg by mouth Daily Yes Historical Provider, zinc gluconate 50 MG tablet Take 50 mg by mouth daily Yes Historical Provider, amiodarone (CORDARONE) 200 MG tablet Take 200 mg by mouth daily Yes Historical Provider, aspirin 81 MG EC tablet Take 81 mg by mouth daily Yes Historical Provider, pantoprazole (PROTONIX) 40 MG tablet Take 40 mg by mouth daily Yes Historical Provider, balsalazide (COLAZAL) 750 MG capsule Take 750 mg by mouth daily Yes Historical Provider, apixaban (ELIQUIS) 2.5 MG TABS tablet Take 2.5 mg by mouth daily Yes Historical Provider, lisinopril (PRINIVIL;ZESTRIL) 20 MG tablet Take 20 mg by mouth daily Yes Historical Provider, metoprolol tartrate (LOPRESSOR) 25 MG tablet Take 25 mg by mouth daily Yes Historical Provider, Physical Exam General: No acute distress CV: Regular rate Pulm: Right-sided breath sounds improved, right pigtail catheter to suction, purulent output, no air leak Abd: Soft, NT, ND Neuro: Awake, alert, oriented Diet: DIET CARDIAC; Problem List: Active Problems: Parapneumonic effusion Resolved Problems: * No resolved hospital problems. * Assessment and Plan: 80-year-old male with right-sided empyema s/p thoracentesis 09/11 and IR pigtail catheter placement 09/12 - 4mg tPA administered via pigtail catheter this morning - CXR improved this morning compared to CXR on admission - Will discuss redosing tPA tomorrow with Dr. Davidson - Right pigtail catheter to suction. Monitor output. - Scheduled DuoNebs. IS / Acapella. - Pain control as needed - Continue vancomycin / Unasyn / doxycycline per ID - Hx Aflutter. Continue to hold Eliquis. Last dose 09/08. - Cardiac diet as tolerated - MYRON. Nephrology following. - DVT ppx: SCDs / Heparin - Medical management per primary - Will continue to follow Kylah Liz MD Disclaimers: INFORMED CONSENT: The nature and purpose of the proposed treatment and/or procedure have been discussed. The risks and benefits of the proposed treatment or procedures have been reviewed. Alternatives have been reviewed in addition to the risks and benefits of not receiving treatments or undergoingprocedures. Pursuant to this discussion, the patient agrees to undergo the proposed treatment or procedure. Captured images seen in this note are not a substitute for a comprehensive interpretation of the entire data set as reflected by the interpreting physician with regard to radiology, echocardiography,and other diagnostic images. This note may have been dictated using [employer] Medical Practice Edition 2.6 and/or [employer] Voice Recognition Feature. The document was proofread; however, unrecognized voice recognition dinkey engine mechanic errors may be present. Associated attestation - Kassandra Davidson MD - 09/13/2020 5:16 PM EDT DOS: 09/13/2020 I personally performed a face to face diagnostic evaluation on this patient. I agree with the findings and plan of care as documented by the resident/ASSISTANT STORE MANAGER OPERATIONS/ENTERPRISE MANAGER/PA, unless otherwise noted. Kassandra Davidson MD Cardiothoracic Surgery * Shahnaz Cooper, [facility] - 09/12/2020 12:50 PM EDT Infectious Diseases has been consulted and will manage Vancomycin at this time. Thank you for the consult. Pharmacy signing off for vancomycin dosing. Shahnaz Cooper, PharmD Date: 09/12/20 Time: 12:51 PM * Shauna Vaca RN - 09/12/2020 10:23 AM EDT Patient arrived to CT department from room 6124 for a right Chest drian . Dr. Aguilar in to discuss procedure with patient and informed consent obtained. Patient assisted to CT table . surveillance monitor on.# 12 pigtail drain to [facility] waterseal placed rt.upper chest Specimenobtained. Tegaderm and stayfix applied to site. Patient tolerated procedure well. Report called and patient transferred to room 6124. * Honey Anderson RCP - 09/12/2020 8:50 AM EDT Patient Evaluation Form The patient is currently receiving Duoneb QID Points 0 1 2 3 4 Points Totals Pulmonary Status (-/+) History Smoking history < 20 pack years Smoking history > 20 pack years Pulmonary Disorder (acute or chronic) Severe or Chronic with Exacerbation 3 Surgical Status No Surgery Trach PEG General Surgery Lower Abdominal Thoracic or Upper Abdominal Thoracic with Pulmonary Disorder 1 Chest X-ray Clear None Ordered Chronic Changes CXR results Pending Infiltrates, atelectasis, pleural effusion, or edema Infiltrates in more than one lobe Infiltrate + Atelectasis, &/or pleural effusion 2 Respiratory Pattern Regular, RR = 12-20 Increased, RR = 21-25 SPENCE, irregular, or RR = 26-30 Decreased FEV1 or RR = 31-35 Severe SOB, used of of accessory muscles, or RR = > 35 0 Mental Status Alert, oriented, cooperative Confused, but follows commands Lethargic or un-able to follow commands Obtunded Comatose 0 Breath Sounds Clear to auscultation Decreased unilaterally or in bases only Decreased bilaterally Crackles or intermittent wheezes Wheezes 1 Cough Strong, spontaneous, & nonproductive Strong, spontaneous, & productive Weak, nonproductive Weak, productive or with wheezes No spontaneous cough or may require suctioning 0 Level of Activity Ambulatory Ambulatory with Assist Non-ambulatroy Paraplegic Quadriplegic 1 Triage 1 > 20 pts Triage 2 16-20 pts Triage 3 11- 15 pts Triage 4 6 - 10 pts Triage 5 0 - 5 pts TOTAL POINTS = 8 Triage Score = 4 PEF: FVC: FEV1: FVE1/FVC: Patient instructed and returned demonstration on use of MDI No Changing Therapy to Duoneb TID * Alessio Robertson MD - 09/12/2020 8:28 AM EDT Images from the original note were not included. Hospitalist Progress Note 09/12/2020 8:28 AM [phone]: Please page me for patient care issues. [phone]: Please page [facility] night Hospitalist for any issues. Subjective: Admit Date: 09/11/2020 PCP: No primary care provider on file. Room#: 6124/[id number] Interval History: Patient seen and examined No new event overnight 80-year-old male past medical history of subclavian steal syndrome, coronary artery disease with previous coronary artery bypass graft/PCI, atrial fibrillation/flutter and decortication, heart failure preserved ejection fraction, chronic kidney disease [baseline creatinine not available, hypertensio n, hyperlipidemia, history of ulcerative colitis, history of daily alcohol use - 3-4 shots of whisky Was treated for pneumonia as outpatient since august 31 , was having SOB Work up showed large rightsided pleural effusion Transferred from [facility]. Patient initially presented with shortness of breath workup consistent with large right-sided pleural effusion, status post thoracentesis- drained 1.9 L of fluid, there was a concern for purulent drainage effusion/empyema. LDH greater than 4000, total protein 1.7. He was on Zosyn, vancomycin, case was discussed with cardio- thoracic surgery team at [facility] and was transferred for further treatment. His creatinine on admission to [facility] was 2.3 Denies any chest pain, cough, sputum No nausea, vomiting No fever spike noted. Saturation was 94% on RA Lab work from today showed creatinine 2.1, sodium 140, lactic acid 1.4 Hemoglobin 11, MCV 100.9, platelet count 137 Urine analysis negative electrocardiogram showed atrial flutter Diet NPO Effective Now Exceptions are: Sips of Water with Meds Patient Vitals for the past 96 hrs (Last 3 readings): Weight 09/11/20 2230 179 lb 8 oz (81.4 kg) Medications: sodium chloride balsalazide 750 mg Oral Daily ipratropium-albuterol 1 ampule Inhalation 4x daily sodium chloride flush 10 mL Intravenous 2 times per day [START ON 09/13/2020] vancomycin 1,250 mg Intravenous Q36H piperacillin-tazobactam 3,375 mg Intravenous Q8H atorvastatin 40 mg Oral Nightly levothyroxine 50 mcg Oral Daily metoprolol tartrate 25 mg Oral Daily pantoprazole 40 mg Oral Daily heparin (porcine) 5,000 Units Subcutaneous 3 times per day LABS: CBC: Recent Labs 09/11/20 2254 WBC 9.1 RBC 3.29* HGB 11.0* HCT 33.2* MCV 100.9* RDW 14.3 PLT 137* BMP: Recent Labs 09/11/20 2254 NA 140 K 3.5 CL 110* CO2 20* BUN 77* CREATININE 2.18* GLUCOSE 117* CALCIUM 9.1 ANIONGAP 9 LIVER PROFILE: Recent Labs 09/11/20 2254 AST 39 ALT 24 BILITOT 1.2 ALKPHOS 147* LABALBU 2.8* PROT 5.4* PT/INR: No results for input(s): PROTIME, INR in the last 72 hours. CARDIAC ENZYMES: No results for input(s): TROPONINI in the last 72 hours. Procalcitonin: No results found for: PROCAL Objective: Vitals: BP 99/73 Pulse 101 Temp 96.4 F (35.8 C) (Temporal) Resp 16 Ht 5' 11 (1.803 m) Wt179 lb 8 oz (81.4 kg) SpO2 94% BMI 25.04 kg/m Pulse Ox: SpO2 Av.3 % Min: 93 % Max: 94 % Supplemental O2: General appearance: No apparent distress, HEENT: Eyes: No scleral icterus Pallor noted Oral: Tongue is semi-moist Cardiovascular: S1S2 heard, RRR Respiratory:Decrease breath sound both bases Abdomen: Soft, non-tender, non-distended with normal bowel sounds. Musculoskeletal: No obvious deformities seen Neurology- no focal neurology,Awake alert Extremity- peripheral edema both lower extremities Assessment Right-sided parapneumonic effusion/concerning for empyema status post thoracentesis done on 09/11/2020, drained 1.9 L, fluid consistent with exudative in nature. Acute kidney injury on chronic kidney disease [baseline creatinine not available] Coronary artery disease/coronary artery bypass graft Chronic atrial flutter Macrocytic anemia Mild thrombocytopenia Hyperglycemia rule out DM Chronic heart failure preserved ejection fraction History of hypertension Hyperlipidemia Ulcerative colitis, in remission Hypothyroidism History of daily alcohol use Plan Continue nebulizer treatment as ordered Continue IV Zosyn, vancomycin Infectious disease team consult ordered Computed tomography scan of chest without contrast today Seen by CTS , plan to for CT-guided pigtail catheter placement Fluid to be sent for cytology, Gram stain, culture Nephrology team consult ordered Renal ultrasonogram BMP panel in a.m. Macrocytosis noted, check B12, folate, thyroid-stimulating hormone level Thiamine , folic acid and prn ativan On deep vein thrombosis prophylaxis On gastrointestinal prophylaxis of Protonix 40 mg daily Continue current treatment Labs ordered for AM Patient was informed about all work up and treatment plan Discussed with nursing staff Advance Directive: Limited Discharge planning: Alessio Robertson MD Division of Hospitalist Medicine Inpatient Medical Services PAGER: [phone] documented in this encounter* Delmy Brush DO - 10/07/2020 12:39 PM EDT [facility] Progress Note SUBJECTIVE: Patient denies current CP, SOB. Confused 'pain 01/06 In ICU Right VATS with pleural biopsy and washout Medications Scheduled Meds: sodium chloride flush 5-40 mL Intravenous 2 times per day mineral oil-hydrophilic petrolatum Topical BID apixaban 5 mg Oral BID sodium chloride flush 5-40 mL Intravenous 2 times per day Venelex Topical 4x Daily stomahesive in petrolatum Topical BID sodium chloride flush 10 mL Intracatheter Q12H heparin flush 250 Units Intracatheter Q12H atorvastatin 40 mg Oral Nightly vitamin B-12 500 mcg Oral Daily ferrous sulfate 325 mg Oral Daily with breakfast levothyroxine 50 mcg Oral Daily amiodarone 200 mg Oral Daily aspirin 81 mg Oral Daily pantoprazole 40 mg Oral Daily balsalazide 750 mg Oral Daily [Held by provider] lisinopril 20 mg Oral Daily metoprolol tartrate 25 mg Oral Daily sodium chloride flush 10 mL Intravenous 2 times per day ethacrynate (EDECRIN) IVPB 50 mg Intravenous BID Continuous Infusions: sodium chloride sodium chloride sodium chloride Prn Meds : sodium chloride flush, sodium chloride, sodium chloride flush, sodium chloride, heparin flush, sodium chloride flush, heparin flush, sodium chloride flush, sodium chloride, promethazine OR ondansetron, acetaminophen OR acetaminophen, potassium chloride OR potassium alternative oral replacement OR potassium chloride, polyethylene glycol Home Meds: No current facility-administered medications on file prior to encounter. Current Outpatient Medications on File Prior to Encounter Medication Sig Dispense Refill apixaban (ELIQUIS) 2.5 MG TABS tablet Take 2 tablets by mouth 2 times daily Increase to 5 mg bid unless decreased by your personal lines sales rep. 60 tablet 0 atorvastatin (LIPITOR) 40 MG tablet Take 40 mg by mouth daily vitamin B-12 (CYANOCOBALAMIN) 500 MCG tablet Take 500 mcg by mouth daily ferrous sulfate (IRON 325) 325 (65 Fe) MG tablet Take 325 mg by mouth daily (with breakfast) levothyroxine (SYNTHROID) 50 MCG tablet Take 50 mcg by mouth Daily zinc gluconate 50 MG tablet Take 50 mg by mouth daily amiodarone (CORDARONE) 200 MG tablet Take 200 mg by mouth daily aspirin 81 MG EC tablet Take 81 mg by mouth daily pantoprazole (PROTONIX) 40 MG tablet Take 40 mg by mouth daily balsalazide (COLAZAL) 750 MG capsule Take 2,250 mg by mouth 2 times daily metoprolol tartrate (LOPRESSOR) 25 MG tablet Take 25 mg by mouth daily polyethylene glycol (GLYCOLAX) 17 GM/SCOOP powder Take 17 g by mouth daily as needed (Constipation)510 g 0 OBJECTIVE Physical BP (!) 121/54 Pulse 71 Temp 97.7 F (36.5 C) (Temporal) Resp 18 Ht 5' 11 (1.803 m) Comment:per chart Wt 176 lb 6.4 oz (80 kg) SpO2 97% BMI 24.60 kg/m 24HR INTAKE/OUTPUT: Intake/Output Summary (Last 24 hours) at 10/07/2020 1241 Last data filed at 10/07/2020 0544 Gross per 24 hour Intake 1400 ml Output 2350 ml Net -950 ml General: confused HEENT: Atraumatic, normocephalic Eyes: EOMI Chest: +CT tube Cardiac: S1 S2 RR, no murmurs, gallops or rubs Abdomen: Soft, non-tender, BS audible. Extremities: No lower extremity edema Data Last 3 CMP: Recent Labs 10/05/20 0051 10/06/20 0030 10/07/20 0113 NA 142 137 137 K 4.1 3.7 3.3* CL 112* 106 101 CO2 25 29 32* BUN 43* 43* 44* CREATININE 2.42* 2.23* 2.13* CALCIUM 8.4 8.4 8.4 LABALBU -- 2.7* -- Last 3 CBC: No results for input(s): WBC, RBC, HGB, HCT, MCV, MCH, MCHC, RDW, PLT, MPV in the last 72 hours. ASSESSMENT Patient Active Problem List Diagnosis Date Noted Atrial fibrillation (HCC) 10/02/2020 detention (current) use of antibiotics Parapneumonic effusion 09/12/2020 Patient is 80 year old male with past medical history including: afib, CAD, HTN. Also with recent VATS, who presented this admission with complaint of dyspnea, leg swelling. Found to have pneumothorax, chest tube was placed. Also had DCC. Nephrology consulted as Scr went up to 2.4mg/dl. 1. MYRON/CKD- baseline Scr around 1.8-1.9mg/dl, recent Scr peak at 2.4mg/dl -suspect MYRON related to hemodyamic pertubation with CRS and recent STARR use -continue to hold STARR/ARB as well as NSAIDs, unnecessary contrast exposure, nephrotoxins -monitor Scr, UO -Cr stable -ok for discharge from view, will arrange follow up in our [place] office 2. Volume- much improved per patient,tolerated diuresis with ethacrynic acid Has allergy to po Lasix and Bumex 3. Hypomagnesmia- Mg low at 1.3 this AM, replete x1 ASSESSMENT/PLAN: Delmy Brush DO 10/07/2020 12:41 PM * Anna Baldwin MD - 10/07/2020 8:14 AM EDT Progress Note [facility] Patient - Amaury Blank, Age - 80 y.o. 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 No SOB or cough OBJECTIVE VITALS height is 5' 11 (1.803 m) and weight is 176 lb 6.4 oz (80 kg). His temporal temperature is 97.4 F (36.3 C). His blood pressure is 126/65 and his pulse is 83. His respiration is 18 and oxygen saturation is 95%. Temp (24hrs), Av.2 F (36.8 C), Min:97.4 F (36.3 C), Max:98.9 F (37.2 C) General Appearance: Alert, NAD HEENT: wnl Neck: Supple Lungs: Clear to auscultation b/l on room air. Right-sided CT with serosang output collected Cardiovascular: RRR Abdomen: Soft NT, ND, BS+ : no CVAT. No koenig Neurologic: wnl Skin: No rashes Extremities: No edema, No joint inflammation Lines: LUE picc line in place MEDICATIONS: sodium chloride flush 5-40 mL Intravenous 2 times per day mineral oil-hydrophilic petrolatum Topical BID apixaban 5 mg Oral BID sodium chloride flush 5-40 mL Intravenous 2 times per day Venelex Topical 4x Daily stomahesive in petrolatum Topical BID sodium chloride flush 10 mL Intracatheter Q12H heparin flush 250 Units Intracatheter Q12H atorvastatin 40 mg Oral Nightly vitamin B-12 500 mcg Oral Daily ferrous sulfate 325 mg Oral Daily with breakfast levothyroxine 50 mcg Oral Daily amiodarone 200 mg Oral Daily aspirin 81 mg Oral Daily pantoprazole 40 mg Oral Daily balsalazide 750 mg Oral Daily [Held by provider] lisinopril 20 mg Oral Daily metoprolol tartrate 25 mg Oral Daily sodium chloride flush 10 mL Intravenous 2 times per day ethacrynate (EDECRIN) IVPB 50 mg Intravenous BID cefTRIAXone (ROCEPHIN) IV 1,000 mg Intravenous Q24H sodium chloride sodium chloride sodium chloride LABS: CBC: No results for input(s): WBC, HGB, PLT in the last 72 hours. BMP: Recent Labs 10/05/20 0051 10/06/20 0030 10/07/20 0113 NA 142 137 137 K 4.1 3.7 3.3* CL 112* 106 101 CO2 25 29 32* BUN 43* 43* 44* CREATININE 2.42* 2.23* 2.13* GLUCOSE 111* 106* 102* Hepatic: Recent Labs 10/06/20 0030 LABALBU 2.7* Lactic Acid: No results for input(s): LACTA in the last 72 hours. MICROBIOLOGY: No results for input(s): BC in the last 72 hours. IMAGING: Reviewed Problem list of patient: Patient Active Problem List Diagnosis Parapneumonic effusion detention (current) use of antibiotics Atrial fibrillation (HCC) Anna Baldwin MD 8:14 AM 10/07/20 * Vivi Calixto APRN - BOAT REPAIRER - 10/07/2020 7:52 AM EDT Images from the original note were not included. Cardiothoracic Surgery Progress Note PATIENT NAME: Amaury Blank TODAY'S DATE: 10/07/2020 Surgery/Procedure: 10/02/20 Hydropneumothorax with subcutaneous emphysema with CT guided chest tube placement Interval History: Hospital day #[address] today. I&Os: CT output: 0 Last recorded/verified vitals in [facility] BP 126/65 Pulse 83 Temp 97.4 F (36.3 C) (Temporal) Resp 18 Ht 5' 11 (1.803 m) Comment: perchart Wt 176 lb 6.4 oz (80 kg) SpO2 95% BMI 24.60 kg/m Recent Labs 10/05/20 0051 10/06/20 0030 10/07/20 0113 NA 142 137 137 K 4.1 3.7 3.3* CREATININE 2.42* 2.23* 2.13* Physical Exam Constitutional: General: He is not in acute distress. Appearance: Normal appearance. He is not ill-appearing or toxic-appearing. Eyes: Pupils: Pupils are equal, round, and reactive to light. Neck: Musculoskeletal: Normal range of motion. Cardiovascular: Rate and Rhythm: Normal rate. Rhythm irregular. Pulses: Normal pulses. Heart sounds: Normal heart sounds. No murmur. No friction rub. No gallop. Pulmonary: Effort: Pulmonary effort is normal. No respiratory distress. Breath sounds: Normal breath sounds. No wheezing or rales. Abdominal: General: Bowel sounds are normal. There is no distension. Palpations: Abdomen is soft. Tenderness: There is no abdominal tenderness. Musculoskeletal: Normal range of motion. Right lower leg: No edema. Left lower leg: No edema. Skin: General: Skin is warm and dry. Capillary Refill: Capillary refill takes less than 2 seconds. Neurological: Mental Status: He is alert and oriented to person, place, and time. Psychiatric: Mood and Affect: Mood normal. Behavior: Behavior normal. Thought Content: Thought content normal. Judgment: Judgment normal. Current Outpatient Medications Medication Instructions amiodarone (CORDARONE) 200 mg, Oral, DAILY apixaban (ELIQUIS) 2.5 mg, Oral, 2 TIMES DAILY aspirin 81 mg, Oral, DAILY atorvastatin (LIPITOR) 40 mg, Oral, DAILY balsalazide (COLAZAL) 2,250 mg, Oral, 2 TIMES DAILY ferrous sulfate (IRON 325) 325 mg, Oral, DAILY WITH BREAKFAST levothyroxine (SYNTHROID) 50 mcg, Oral, DAILY lisinopril (PRINIVIL;ZESTRIL) 20 mg, Oral, DAILY metoprolol tartrate (LOPRESSOR) 25 mg, Oral, DAILY pantoprazole (PROTONIX) 40 mg, Oral, DAILY polyethylene glycol (GLYCOLAX) 17 g, Oral, DAILY PRN vitamin B-12 (CYANOCOBALAMIN) 500 mcg, Oral, DAILY zinc gluconate 50 mg, Oral, DAILY ASSESSMENT/PLAN: Patient Active Problem List Diagnosis Code Parapneumonic effusion J18.9, J91.8 detention (current) use of antibiotics Z79.2 Atrial fibrillation (HCC) I48.91 CXR stable Removed chest tube D/C daily imaging Medical management per primary CTS will sign off Disclaimer INFORMED CONSENT:The nature and purpose of the proposed treatment or procedure have been discussed.The risks and benefits of the proposed treatment or procedures have been reviewed. Alternatives have been reviewed in addition to the risks and benefits of not receiving treatments or undergoing procedures. Pursuant to this discussion, the patient agrees to undergo the proposed treatment or procedure. Captured images seen in this note from are not a substitute for a comprehensive interpretation of the entire data set as reflected by the interpreting physician with regard to radiology, echocardiography, and other diagnostic images. This note may have been dictated using [employer] Medical Practice Edition 2.6 and/or [employer] Voice Recognition Feature. The document was proofread, however unrecognized voice recognition dinkey engine mechanic errors may be present. * Bre Wilhelm, PT - 10/06/2020 6:03 PM EDT Physical Therapy Facility/Department: [facility] Initial Assessment NAME: Amaury Blank : 1940 Date of Service: 10/06/2020 Discharge Recommendations: Home with assist PRN, Home with Home health PT PT Equipment Recommendations Equipment Needed: (TBD) Assessment Body structures, Functions, Activity limitations: Decreased functional mobility ;Decreased ADL status;Decreased balance;Decreased safe awareness Assessment: Patient admitted due to A-Fib s/p ROSI guided cardioversion on 10/05. Patient presents with the above deficits. Patient impulsive with mobility, requiring cues for safety. He performed bed mobility with modif indep. He required CGA for transfers due to decreased safety awareness and poor eccentric control with stand <> sit. Patient ambulated up to 300 feet using FWW, requiring CGA majority of time with occasional min A needed for walker mgmt with cues to slow down and maintain positioning within walker. Feel that patient will be able to progress toward functional goals in orderto return home safely. Recommend home with assist PRN and home health PT. Specific instructions for Next Treatment: Functional strengthening, gait safety/walker mgmt Prognosis: Fair Decision Making: Low Complexity PT Education: Goals;PT Role;Plan of Care;Transfer Training;Functional Mobility Training;Gait Training Patient Education: Stair training REQUIRES PT FOLLOW UP: Yes Activity Tolerance Activity Tolerance: Patient Tolerated treatment well Patient Diagnosis(es): There were no encounter diagnoses. has a past medical history of Atrial fibrillation/flutter (HCC), CAD (coronary artery disease), History of GI bleed, Hypertension, and UC (ulcerative colitis) ([facility]). has a past surgical history that includes Coronary artery bypass graft; CT GUIDED PLEURAL DRAINAGE W CATH PERC (09/12/2020); other surgical history (Right, 09/19/2020); and CT GUIDED PLEURAL DRAINAGE W CATH PERC (10/03/2020). Restrictions Restrictions/Precautions Restrictions/Precautions: Modified Diet(1500 ml fluid restriction) Required Braces or Orthoses?: No Position Activity Restriction Other position/activity restrictions: chest tube Vision/Hearing Vision: Impaired Vision Exceptions: Wears glasses for reading Hearing: Exceptions to WFL Hearing Exceptions: Hard of hearing/hearing concerns;Bilateral hearing aid Subjective General Chart Reviewed: Yes Patient assessed for rehabilitation services?: Yes Additional Pertinent Hx: CAD, A-fib, ulcerative colitis Response To Previous Treatment: Not applicable Family / Caregiver Present: No Follows Commands: Within Functional Limits General Comment Comments: chest tube Subjective Subjective: Patient cleared by nurse for PT eval. Patient pleasant and motivated for therapy. Pain Screening Patient Currently in Pain: Denies Vital Signs Patient Currently in Pain: Denies Pre Treatment Pain Screening Intervention List: Patient able to continue with treatment Orientation Orientation Overall Orientation Status: Within Normal Limits Social/Functional History Social/Functional History Lives With: Spouse Type of Home: House Home Layout: Two level Bathroom Shower/Tub: Tub/Shower unit, Shower chair with back Bathroom Toilet: Standard Bathroom Equipment: (n/a) Bathroom Accessibility: Accessible Home Equipment: Rolling walker, 4 wheeled walker ADL Assistance: Independent Homemaking Assistance: Independent Homemaking Responsibilities: Yes Ambulation Assistance: Independent Transfer Assistance: Independent Active Gear Nicker: Yes 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 Cognition Cognition Overall Cognitive Status: Exceptions Following Commands: Follows one step commands consistently Attention Span: Appears intact Memory: Appears intact Safety Judgement: Decreased awareness of need for safety Insights: Decreased awareness of deficits Initiation: Does not require cues Sequencing: Requires cues for some Cognition Comment: Impulsive at times but suspect this is baseline and pt previously active. Objective Observation/Palpation Posture: Fair AROM RLE (degrees) RLE AROM: WFL AROM LLE (degrees) LLE AROM : WFL Strength RLE Strength RLE: WFL Comment: 4-/5 throughout Strength LLE Strength LLE: WFL Comment: 4-/5 throughout Bed mobility Supine to Sit: Modified independent Sit to Supine: Modified independent Scooting: Modified independent Transfers Sit to Stand: Contact guard assistance Stand to sit: Contact guard assistance Comment: Patient impulsive at times, requires cues to back up/square up fully to surfaces prior to sitting. Demo poor eccentric control. Ambulation Ambulation?: Yes WB Status: no restrictions More Ambulation?: Yes Ambulation 1 Surface: level tile Device: Rolling Walker Assistance: Contact guard assistance;Minimal assistance Quality of Gait: Moderate kiarra Distance: 300 feet Comments: Requires cues to slow down and to maintain positioning within walker. Required occasionalmin A for walker mgmt. Ambulation 2 Surface - 2: level tile Device 2: Rolling Walker Assistance 2: Contact guard assistance;Minimal assistance Distance: 75 feet x2 Comments: see above Stairs/Curb Stairs?: Yes Stairs # Steps : 14 Stairs Height: 8 Rails: Left ascending Assistance: Contact guard assistance Comment: Demo step-to pattern to descend, cues to hold hand rail with BUE for improved stability. Demo reciprocal gait pattern to ascend. Balance Posture: Fair(Rounded shoulders, flexed trunk) Sitting - Static: Good Sitting - Dynamic: Good Standing - Static: Fair;+ Standing - Dynamic: Fair;+ Plan Plan Times per week: 5 Times per day: Daily Plan weeks: 2 Specific instructions for Next Treatment: Functional strengthening, gait safety/walker mgmt Current Treatment Recommendations: Strengthening, Transfer Training, Endurance Training, Patient/Caregiver Education & Training, ROM, Balance Training, Gait Training, Functional Mobility Training, Stair training Safety Devices Type of devices: Left in bed, Patient at risk for falls, Call light within reach, Nurse notified Restraints Initially in place: No G-Code OutComes Score AM-PAC Score AM-PAC Inpatient Mobility Raw Score : 20 (10/06/201802) AM-PAC Inpatient T-Scale Score : 47.67 (10/06/201802) Mobility Inpatient CMS 0-100% Score: 35.83 (10/06/201802) Mobility Inpatient CMS G-Code Modifier : CJ (10/06/201802) Goals Short term goals Time Frame for Short term goals: 2 weeks Short term goal 1: Perform transfers with modif indep Short term goal 2: Ambulate 300 feet using FWW with supervision Short term goal 3: Ascend/descend flight of stairs using hand rail with supervision Patient Goals Patient goals : Did not state Therapy Time Individual Concurrent Group Co-treatment Time In 1522 Time Out 1545 Minutes 23 Timed Code Treatment Minutes: 11 Minutes(Gait) Bre Wilhelm, PT PT wore N95 mask, goggles, and gloves throughout entire session with patient. Patient s Physical Therapy Plan of Care supervision is transferred to [facility] Rehab Department Physical Therapist. * Fabiola Jo OT - 10/06/2020 3:05 PM EDT Occupational Therapy Occupational Therapy Initial Assessment Date: 10/06/2020 Patient Name: Amaury Blank : 1940 Date of Service: 10/06/2020 Discharge Recommendations: Home with assist PRN Assessment Assessment: OT eval completed. Pt presenting close to baseline with basic ADLs at supervision levelprogressing to mod indep. Recommending disch home with assist PRN when medically stable. No furtheracute OT needs. Prognosis: Good Decision Making: Low Complexity OT Education: OT Role;Plan of Care REQUIRES OT FOLLOW UP: No Activity Tolerance Activity Tolerance: Patient Tolerated treatment well Safety Devices Safety Devices in place: Yes Type of devices: Gait belt;Nurse notified;Left in bed;Call light within reach Restraints Initially in place: No Patient Diagnosis(es): There were no encounter diagnoses. has a past medical history of Atrial fibrillation/flutter (HCC), CAD (coronary artery disease), History of GI bleed, Hypertension, and UC (ulcerative colitis) (HCC). has a past surgical history that includes Coronary artery bypass graft; CT GUIDED PLEURAL DRAINAGE W CATH PERC (09/12/2020); other surgical history (Right, 09/19/2020); and CT GUIDED PLEURAL DRAINAGE W CATH PERC (10/03/2020). Restrictions Restrictions/Precautions Restrictions/Precautions: Modified Diet(1500 ml fluid restriction; right chest tube (+) suction; IV) Required Braces or Orthoses?: No Subjective General Chart Reviewed: Yes Patient assessed for rehabilitation services?: Yes Additional Pertinent Hx: Right VATS 09/19; CABG x 2 (2016) Family / Caregiver Present: No Diagnosis: Admitted with SOBOE and LE edema weeping fluids. Found with right pneumothorax. General Comment Comments: Right handed male seen supine in bed. Agreeable to OT. RN approving eval and okay for chest tube off suction. 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 Objective Vision: Impaired Vision Exceptions: Wears glasses for reading Hearing: Within functional limits Orientation Overall Orientation Status: Within Functional Limits Functional Mobility Functional - Mobility Device: Rolling Walker Activity: Other Assist Level: Supervision Functional Mobility Comments: Completed x 1 lap around unit progressing to mod indep. Fast pace butsuspect due to pt previously active. ADL LE Dressing: Supervision Toileting: Supervision Additional Comments: Pt is able to change brief supervision level progressing to mod indep after setup. Standing urination at urinal, no LOB. Tone RUE RUE Tone: Normotonic Tone LUE LUE Tone: Normotonic Coordination Movements Are Fluid And Coordinated: Yes Bed mobility Supine to Sit: Modified independent Sit to Supine: Modified independent Scooting: Modified independent Transfers Sit to stand: Supervision Stand to sit: Supervision Cognition Overall Cognitive Status: Exceptions Cognition Comment: Impulsive at times but suspect this is baseline and pt previously active. Sensation Overall Sensation Status: WFL LUE PROM (degrees) LUE PROM: WFL LUE AROM (degrees) LUE AROM : WFL RUE PROM (degrees) RUE PROM: WFL RUE AROM (degrees) RUE AROM : WFL LUE Strength Gross LUE Strength: Exceptions to WFL LUE Strength Comment: 4+/5 throughout RUE Strength Gross RUE Strength: Exceptions to WFL RUE Strength Comment: 4+/5 throughout AM-PAC Score AM-PAC Daily Activity Inpatient How much help for putting on and taking off regular lower body clothing?: None How much help for Bathing?: None How much help for Toileting?: None How much help for putting on and taking off regular upper body clothing?: None How much help for taking care of personal grooming?: None How much help for eating meals?: None AM-PAC Inpatient Daily Activity Raw Score: 24 AM-PAC Inpatient ADL T-Scale Score : 57.54 ADL Inpatient CMS 0-100% Score: 0 ADL Inpatient CMS G-Code Modifier : CH Therapy Time Individual Concurrent Group Co-treatment Time In 1432 Time Out 1454 Minutes 22 Patient's Occupational Therapy [facility]. Goals and/or treatment plan was established in collaboration with patient/family/other representatives. This provider wore an N95 mask, goggles, and gloves for duration of session. Fabiola Jo OTR/L * Lauryn Sierra, [employer] GAME TECHNICIAN - AUDI - 10/06/2020 1:05 PM EDT CARDIOLOGY PROGRESS NOTE Chart and interval events reviewed. Reason for Visit atrial flutter. Coronary artery disease SUBJECTIVE: Amaury Blank states he feels well today. He tells me he feels so much better now that he isn'ta regular rhythm. He has no chest pain, shortness breath, lightheadedness, palpitations, orthopnea,PND or presyncope. He is sitting up at bedside and appears comfortable. SCHEDULED MEDICATIONS: magnesium sulfate 4,000 mg Intravenous Once sodium chloride flush 5-40 mL Intravenous 2 times per day mineral oil-hydrophilic petrolatum Topical BID apixaban 5 mg Oral BID sodium chloride flush 5-40 mL Intravenous 2 times per day Venelex Topical 4x Daily stomahesive in petrolatum Topical BID sodium chloride flush 10 mL Intracatheter Q12H heparin flush 250 Units Intracatheter Q12H atorvastatin 40 mg Oral Nightly vitamin B-12 500 mcg Oral Daily ferrous sulfate 325 mg Oral Daily with breakfast levothyroxine 50 mcg Oral Daily amiodarone 200 mg Oral Daily aspirin 81 mg Oral Daily pantoprazole 40 mg Oral Daily balsalazide 750 mg Oral Daily [Held by provider] lisinopril 20 mg Oral Daily metoprolol tartrate 25 mg Oral Daily sodium chloride flush 10 mL Intravenous 2 times per day ethacrynate (EDECRIN) IVPB 50 mg Intravenous BID cefTRIAXone (ROCEPHIN) IV 1,000 mg Intravenous Q24H Active Problems: Atrial fibrillation (HCC) Resolved Problems: * No resolved hospital problems. * Review of Systems: Review of Systems Constitutional: Positive for activity change. Negative for chills, diaphoresis and fever. HENT: Negative for nosebleeds. Eyes: Negative for visual disturbance. Respiratory: Negative for cough, shortness of breath and wheezing. Cardiovascular: Positive for leg swelling. Negative for chest pain and palpitations. Gastrointestinal: Negative for abdominal pain, blood in stool, constipation, diarrhea, nausea and vomiting. Genitourinary: Negative for hematuria. Musculoskeletal: Positive for gait problem (uses walker ). Negative for myalgias. Skin: Positive for rash. Neurological: Negative for dizziness and syncope. Hematological: Does not bruise/bleed easily. Psychiatric/Behavioral: Negative for dysphoric mood and suicidal ideas. Denies Depression VITAL SIGNS: Vitals: 10/06/20 0514 10/06/20 0600 10/06/20 0910 10/06/20 1302 BP: (!) 143/66 139/71 137/68 Pulse: 79 101 80 Resp: 17 16 16 Temp: 98.1 F (36.7 C) 98.1 F (36.7 C) 98.9 F (37.2 C) TempSrc: Temporal Temporal Temporal SpO2: 96% 97% 95% Weight: 176 lb 6.4 oz (80 kg) Height: Intake/Output Summary (Last 24 hours) at 10/06/2020 1305 Last data filed at 10/06/2020 0841 Gross per 24 hour Intake 1550 ml Output 2550 ml Net -1000 ml Patient Vitals for the past 96 hrs (Last 3 readings): Weight 10/06/20 0600 176 lb 6.4 oz (80 kg) 10/05/20 0534 179 lb 12.8 oz (81.6 kg) 10/03/20 0136 202 lb 3.2 oz (91.7 kg) Physical Exam: Physical Exam Constitutional: General: He is not in acute distress. Appearance: Normal appearance. He is well-developed. He is ill-appearing (Chronically ill-appearing). He is not diaphoretic. HENT: Mouth/Throat: Pharynx: No oropharyngeal exudate. Eyes: General: Right eye: No discharge. Left eye: No discharge. Neck: Thyroid: No thyromegaly. Vascular: No JVD. Cardiovascular: Rate and Rhythm: Normal rate and regular rhythm. Chest Wall: PMI is not displaced. Pulses: Normal pulses. Heart sounds: Normal heart sounds. No murmur. No gallop. Pulmonary: Effort: No accessory muscle usage or respiratory distress. Breath sounds: Normal breath sounds. Comments: Diminished. Intact chest tube to right anterior chest. Healing incisions to right lateral chest. Abdominal: General: Bowel sounds are normal. There is no distension or abdominal bruit. Palpations: Abdomen is soft. There is no shifting dullness or hepatomegaly. Tenderness: There is no abdominal tenderness. Musculoskeletal: Normal range of motion. General: Swelling ( bilateral lower extremities) present. Skin: General: Skin is warm and dry. Coloration: Skin is pale. Findings: Bruising present. Comments: Small scattered scabs to bilateral lower extremities including thighs. Patient tells me this is secondary to rash from medications. Redness noted to bilateral feet. Neurological: Mental Status: He is alert and oriented to person, place, and time. Data: Scheduled Meds: Reviewed Continuous Infusions: sodium chloride sodium chloride sodium chloride CBC: No results for input(s): WBC, HGB, HCT, PLT in the last 72 hours. BMP: Recent Labs 04/08/21 0051 10/06/20 0030 NA 142 137 K 4.1 3.7 CL 112* 106 CO2 25 29 BUN 43* 43* CREATININE 2.42* 2.23* INR:No results for input(s): INR in the last 72 hours. No results for input(s): BNP in the last 72 hours. TSH: Lab Results Component Value Date TSH 2.826 10/03/2020 Cardiac Injury Profile: No results for input(s): CKTOTAL, CKMB, TROPONINI in the last 72 hours. Lipid Profile: Lab Results Component Value Date TRIG 79 10/03/2020 HDL 49 10/03/2020 CHOL 93 10/03/2020 EKG: See Report Telemetry Reviewed: Normal sinus rhythm. Heart rate 69-72 Echo: 10/05/2020 SUMMARY: 1. Left atrium: The atrium is severely dilated. There is no evidence of a thrombus in the atrial cavity or appendage revealed by acoustic contrast opacification. 2. Left ventricle: Systolic function is normal. The estimated ejection fraction is 55%. 3. Mitral valve: Mildly thickened with mild to moderate calcification involving the medial aspect of the posterior mitral valve leaflet. There is moderate, 2+ regurgitation, directed centrally. ERO: 0.2 cm^2. RECOMMENDATIONS: Proceed with DCCV. [id number] Score for Atrial Fibrillation Stroke Risk Risk Factors Component Value C CHF No 0 H HTN No 0 A2 Age >= 75 Yes, (80 y.o.) 2 D DM No 0 S2 Prior Stroke/TIA No 0 V Vascular Disease No 0 A Age 65-74 No, (80 y.o.) 0 Sc Sex male 0 [id number] Score 2 Score last updated 10/06/20 1:11 PM EDT IMPRESSIONS/RECOMMENDATIONS: Atrial flutters/p ROSI/DCCV -Remains in normal sinus rhythm with controlled rate. He is asymptomatic. -No evidence of heart failure. -Continue Eliquis 5mg BID, amiodarone 200 mg daily and metoprolol 25 mg b.i.d. Pneumothorax: -S/P chest tube placement. -Management per cardiothoracic surgery. CAD s/p coronary stenting (2009) and 2-vessel CABG (2018), Afib -stable, no angina. No additional testing required. -Continue aspirin, beta anna and statin. HFpEF -Clinically compensated. Despite edema he is noted to have negative weight loss in the past 24 hours. We'll need to monitor fluid status closely. -Weight down 3 pounds overnight -Intake and output: Negative for 4.5 L net. -Recommend diuretics as needed. Nephrology on board MYRON/CKD -baseline Scr around 1.8-1.9mg/dl, recent Scr peak at 2.4mg/dl -Avoid nephrotoxins -Nephrology following Will discuss with Dr. Carrington. Electronicallysigned by SRAVAN Meng CNP on 10/06/2020 at 1:05 PM * Jus Loomis APRN - CNP - 10/06/2020 11:50 AM EDT Images from the original note were not included. Cardiothoracic Surgery Progress Note PATIENT NAME: Amaury Blank TODAY'S DATE: 10/06/2020 Surgery/Procedure: 10/02/20 Hydropneumothorax with subcutaneous emphysema with CT guided chest tube placement Interval History: Hospital day #4 no changes overnight I&Os: CT output: 80 Last recorded/verified vitals in Epic BP 139/71 Pulse 101 Temp 98.1 F (36.7 C) (Temporal) Resp 16 Ht 5' 11 (1.803 m) Comment: per chart Wt 176 lb 6.4 oz (80 kg) SpO2 97% BMI 24.60 kg/m Recent Labs 10/04/20 0211 10/05/20 0051 10/06/20 0030 NA 142 142 137 K 4.3 4.1 3.7 CREATININE 2.14* 2.42* 2.23* Physical Exam Constitutional: General: He is not in acute distress. Appearance: Normal appearance. He is not ill-appearing or toxic-appearing. Eyes: Pupils: Pupils are equal, round, and reactive to light. Neck: Musculoskeletal: Normal range of motion. Cardiovascular: Rate and Rhythm: Normal rate. Rhythm irregular. Pulses: Normal pulses. Heart sounds: Normal heart sounds. No murmur. No friction rub. No gallop. Pulmonary: Effort: Pulmonary effort is normal. No respiratory distress. Breath sounds: Normal breath sounds. No wheezing or rales. Abdominal: General: Bowel sounds are normal. There is no distension. Palpations: Abdomen is soft. Tenderness: There is no abdominal tenderness. Musculoskeletal: Normal range of motion. Right lower leg: No edema. Left lower leg: No edema. Skin: General: Skin is warm and dry. Capillary Refill: Capillary refill takes less than 2 seconds. Neurological: Mental Status: He is alert and oriented to person, place, and time. Psychiatric: Mood and Affect: Mood normal. Behavior: Behavior normal. Thought Content: Thought content normal. Judgment: Judgment normal. Current Outpatient Medications Medication Instructions amiodarone (CORDARONE) 200 mg, Oral, DAILY apixaban (ELIQUIS) 2.5 mg, Oral, 2 TIMES DAILY aspirin 81 mg, Oral, DAILY atorvastatin (LIPITOR) 40 mg, Oral, DAILY balsalazide (COLAZAL) 2,250 mg, Oral, 2 TIMES DAILY ferrous sulfate (IRON 325) 325 mg, Oral, DAILY WITH BREAKFAST levothyroxine (SYNTHROID) 50 mcg, Oral, DAILY lisinopril (PRINIVIL;ZESTRIL) 20 mg, Oral, DAILY metoprolol tartrate (LOPRESSOR) 25 mg, Oral, DAILY pantoprazole (PROTONIX) 40 mg, Oral, DAILY polyethylene glycol (GLYCOLAX) 17 g, Oral, DAILY PRN vitamin B-12 (CYANOCOBALAMIN) 500 mcg, Oral, DAILY zinc gluconate 50 mg, Oral, DAILY ASSESSMENT/PLAN: Patient Active Problem List Diagnosis Code Parapneumonic effusion J18.9, J91.8 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 Alternatives have been reviewed in addition to the risks and benefits of not receiving treatments or undergoing procedures. Pursuant to this discussion, the patient agrees to undergo the proposed treatment or procedure. Captured images seen in this note from are not a substitute for a comprehensive interpretation of the entire data set as reflected by the interpreting physician with regard to radiology, echocardiography, and other diagnostic images. This note may have been dictated using Dragon Medical Practice Edition 2.6 and/or [employer] Voice Recognition Feature. The document was proofread, however unrecognized voice recognition dinkey engine mechanic errors may be present. * Afshan Pfeiffer MD - 10/06/2020 9:43 AM EDT Images from the original note were not included. Hospitalist Progress Note 10/06/2020 9:43 AM [phone]: Please page me for patient care issues. [phone]: Please page [facility] night Hospitalist for any issues. Subjective: Admit Date: 10/02/2020 PCP: No primary care provider on file. Room#: 6108/[id number] I was wearing N95 mask throughout the patient encounter. Interval History: Feels ok. Denies chest pain. No shortness of breath. Tolerating po. No n/v. Had BM. DIET CARDIAC; Daily Fluid Restriction: 1500 ml Dietary Nutrition Supplements: Standard High Calorie Oral Supplement Patient Vitals for the past 96 hrs (Last 3 readings): Weight 10/06/20 0600 176 lb 6.4 oz (80 kg) 10/05/20 0534 179 lb 12.8 oz (81.6 kg) 10/03/20 0136 202 lb 3.2 oz (91.7 kg) Medications: sodium chloride sodium chloride sodium chloride sodium chloride flush 5-40 mL Intravenous 2 times per day mineral oil-hydrophilic petrolatum Topical BID apixaban 5 mg Oral BID sodium chloride flush 5-40 mL Intravenous 2 times per day Venelex Topical 4x Daily stomahesive in petrolatum Topical BID sodium chloride flush 10 mL Intracatheter Q12H heparin flush 250 Units Intracatheter Q12H atorvastatin 40 mg Oral Nightly vitamin B-12 500 mcg Oral Daily ferrous sulfate 325 mg Oral Daily with breakfast levothyroxine 50 mcg Oral Daily amiodarone 200 mg Oral Daily aspirin 81 mg Oral Daily pantoprazole 40 mg Oral Daily balsalazide 750 mg Oral Daily [Held by provider] lisinopril 20 mg Oral Daily metoprolol tartrate 25 mg Oral Daily sodium chloride flush 10 mL Intravenous 2 times per day ethacrynate (EDECRIN) IVPB 50 mg Intravenous BID cefTRIAXone (ROCEPHIN) IV 1,000 mg Intravenous Q24H LABS: CBC: No results for input(s): WBC, RBC, HGB, HCT, MCV, RDW, PLT in the last 72 hours. BMP: Recent Labs 10/04/20 0211 10/05/20 0051 10/06/20 0030 NA 142 142 137 K 4.3 4.1 3.7 CL 115* 112* 106 CO2 25 25 29 BUN 40* 43* 43* CREATININE 2.14* 2.42* 2.23* GLUCOSE 109* 111* 106* CALCIUM 8.4 8.4 8.4 ANIONGAP 2* 5 3 LIVER PROFILE: Recent Labs 10/06/20 0030 LABALBU 2.7* PT/INR: No results for input(s): PROTIME, INR in the last 72 hours. CARDIAC ENZYMES: No results for input(s): TROPONINI in the last 72 hours. Procalcitonin: Lab Results Component Value Date PROCAL 0.91 09/13/2020 Objective: Vitals: BP 139/71 Pulse 101 Temp 98.1 F (36.7 C) (Temporal) Resp 16 Ht 5' 11 (1.803 m) Comment: per chart Wt 176 lb 6.4 oz (80 kg) SpO2 97% BMI 24.60 kg/m Pulse Ox: SpO2 Av.5 % Min: 94 % Max: 100 % Supplemental O2: General appearance: Awake, no acute distress noted HEENT: Eyes: No scleral icterus, pallor- Oral: Tongue is semi-moist Cardiovascular: S1S2 heard, RRR Respiratory: Has right chest tube. Normal effort, breath sounds little better, no rhonchi or crackles noted. Abdomen: Soft, non-tender, non-distended with normal bowel sounds. Musculoskeletal: Pedal edema improving, no obvious deformities seen Skin: No visible acute rashes or lesions. Neuro: intact, grossly non-focal. Assessment Atrial flutter Pneumothorax Recent VATS CAD - stable MYRON on CKD3 - creatinine creeping up Stage 3 pressure injury right buttock Plan Volume status better, stable. Has chest tube. Had ROSI + DCC - doing well. Monitoring vitals and electrolytes. Breathing better. Check urine sodium, creatinine, eosinophils. Avoid nephrotoxins. Patient on ceftriaxone for empyema was supposed to be completed 10/04, but with chest tube, consultedID for recommendation. Appreciate wound care. DVT prophylaxis - Holding 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, SCDs. Advance Directive: Full Code Discharge planning: TBD * Afshan Pfeiffer MD - 10/05/2020 4:13 PM EDT Images from the original note were not included. Hospitalist Progress Note 10/05/2020 4:14 PM [phone]: Please page me for patient care issues. [phone]: Please page [facility] night Hospitalist for any issues. Subjective: Admit Date: 10/02/2020 PCP: No primary care provider on file. Room#: [id number] I was wearing N95 mask throughout the patient encounter. Interval History: Denies chest pain. No shortness of breath. Tolerating po. No n/v. Had BM. DIET CARDIAC; Daily Fluid Restriction: 1500 ml Dietary Nutrition Supplements: Standard High Calorie Oral Supplement Patient Vitals for the past 96 hrs (Last 3 readings): Weight 10/05/20 0534 179 lb 12.8 oz (81.6 kg) 10/03/20 0136 202 lb 3.2 oz (91.7 kg) Medications: sodium chloride sodium chloride sodium chloride sodium chloride flush 5-40 mL Intravenous 2 times per day lidocaine PF propofol mineral oil-hydrophilic petrolatum Topical BID apixaban 5 mg Oral BID sodium chloride flush 5-40 mL Intravenous 2 times per day Venelex Topical 4x Daily stomahesive in petrolatum Topical BID sodium chloride flush 10 mL Intracatheter Q12H heparin flush 250 Units Intracatheter Q12H atorvastatin 40 mg Oral Nightly vitamin B-12 500 mcg Oral Daily ferrous sulfate 325 mg Oral Daily with breakfast levothyroxine 50 mcg Oral Daily amiodarone 200 mg Oral Daily aspirin 81 mg Oral Daily pantoprazole 40 mg Oral Daily balsalazide 750 mg Oral Daily [Held by provider] lisinopril 20 mg Oral Daily metoprolol tartrate 25 mg Oral Daily sodium chloride flush 10 mL Intravenous 2 times per day ethacrynate (EDECRIN) IVPB 50 mg Intravenous BID cefTRIAXone (ROCEPHIN) IV 1,000 mg Intravenous Q24H LABS: CBC: No results for input(s): WBC, RBC, HGB, HCT, MCV, RDW, PLT in the last 72 hours. BMP: Recent Labs 10/03/20 0440 10/04/20 0211 10/05/20 0051 NA 141 142 142 K 4.4 4.3 4.1 CL 115* 115* 112* CO2 21* 25 25 BUN 37* 40* 43* CREATININE 1.89* 2.14* 2.42* GLUCOSE 106* 109* 111* CALCIUM 8.8 8.4 8.4 ANIONGAP 6 2* 5 LIVER PROFILE: Recent Labs 10/03/20439 LABALBU 2.9* PT/INR: No results for input(s): PROTIME, INR in the last 72 hours. CARDIAC ENZYMES: Recent Labs 10/03/20439 TROPONINI 0.026 Procalcitonin: Lab Results Component Value Date PROCAL 0.91 09/13/2020 Objective: Vitals: BP 122/76 Pulse 76 Temp 97.2 F (36.2 C) (Temporal) Resp 18 Ht 5' 11 (1.803 m) Comment: per chart Wt 179 lb 12.8 oz (81.6 kg) SpO2 98% BMI 25.08 kg/m Pulse Ox: SpO2 Av.5 % Min: 96 % Max: 100 % Supplemental O2: General appearance: Awake, no acute distress noted HEENT: Eyes: No scleral icterus, pallor- Oral: Tongue is semi-moist Cardiovascular: S1S2 heard, RRR Respiratory: Has right chest tube. Normal effort, breath sounds little better, no rhonchi or crackles noted. Abdomen: Soft, non-tender, non-distended with normal bowel sounds. Musculoskeletal: Pedal edema+, no obvious deformities seen Skin: No visible acute rashes or lesions. Neuro: intact, grossly non-focal. Assessment Atrial flutter Pneumothorax Recent VATS CAD - stable MYRON on CKD3 - creatinine creeping up Stage 3 pressure injury right buttock Plan Volume status better, stable. Has chest tube. Had ROSI + DCC - doing well. Monitoring vitals and electrolytes. Breathing better. Check urine sodium, creatinine, eosinophils. Avoid nephrotoxins. Patient on ceftriaxone for empyema was supposed to be completed 10/04, but with chest tube, will ask ID for recommendation. Appreciate wound care. DVT prophylaxis - Holding 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, SCDs. Advance Directive: Full Code Discharge planning: TBD * Carlene Tomas RD, LD - 10/05/2020 2:59 PM EDT Comprehensive Nutrition Assessment Type and Reason for Visit: Reassess, Consult Nutrition Recommendations/Plan: 1. Continue with current diet: cardiac (which includes 2 gm sodium), 1500 ml fluid restriction. 2. Per MNT protocol will trial Ensure Enlive at dinner (8 oz provides 350 kcals, 20 gm protein) to assist with his nutritional needs for wound healing. RD will reassess acceptance as this oral nutrition supplement as this counts in his fluid restriction. 3. Recommend MVI and Vitamin C daily to promote healing. 4. Monitor weight, labs, fluid, educational needs, and nutritional status. RD will follow up. Nutrition Assessment: S/P ROSI and cardioversion today. Patient is off the floor this am. RD called into room this afternoon, but patient did not answer. Estimated Daily Nutrient Needs: Energy (kcal): 2740-2974 kcal/day; Weight Used for Energy Requirements: [place] Protein (g): 62-78 gm protein/day, monitor renal function; Weight Used for Protein Requirements: [place](0.8-1.0 gm protein/kg) Fluid (ml/day): Per MD; Method Used for Fluid Requirements: Nutrition Related Findings: Galileo = 19, abdomen rounded, present bowewl sounds, + 2 pitting BLE edema, I/O: -3290. Meds: Cordarone, Lipitor, Colazal, Ceftriaxone, Iron, Synthroid, Lopressor, Protonix, Vitamin B12. BMP: Recent Labs 10/03/20 0440 10/04/20 0211 10/05/20 0051 NA 141 142 142 K 4.4 4.3 4.1 CL 115* 115* 112* CO2 21* 25 25 BUN 37* 40* 43* CREATININE 1.89* 2.14* 2.42* GLUCOSE 106* 109* 111* CALCIUM 8.8 8.4 8.4 MG 1.6 1.4* 1.3* HEPATIC: No results for input(s): AST, ALT, ALB, BILITOT, ALKPHOS in the last 72 hours. 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 Nutrition Monitoring and Evaluation: Behavioral-Environmental Outcomes: None Identified Food/Nutrient Intake Outcomes: Food and Nutrient Intake, Supplement Intake, Vitamin/Mineral Intake Physical Signs/Symptoms Outcomes: Biochemical Data, GI Status, Fluid Status or Edema, Meal Time Behavior, Nutrition Focused Physical Findings, Skin, Weight Discharge Planning: Continue current diet, Continue Oral Nutrition Supplement Contact: [phone] * Violet Riley LPN - 10/05/2020 12:08 PM EDT Double lumen vas cath in L upper arm to NS at KVO. R chest tube in place to gravity drng * Filippo Pearson, PT - 10/05/2020 11:44 AM EDT Physical Therapy PT eval orders received, transport in room with patient to take him for cardiac catheter. Will re-attempt eval at later time/date. Filippo Pearson, PT,DPT * Vivi Calixto, SRAVAN - BOAT REPAIRER - 10/05/2020 5:40 AM EDT Images from the original note were not included. Cardiothoracic Surgery Progress Note PATIENT NAME: Amaury Blank TODAY'S DATE: 10/05/2020 Surgery/Procedure: 10/02/20 Hydropneumothorax with subcutaneous emphysema with CT guided chest tube placement Interval History: Hospital day #3: Patient doing well. He reports little pain. VSS. I&Os: CT output: 350 Last recorded/verified vitals in Epic BP (!) 171/107 Pulse 129 Temp 97.4 F (36.3 C) (Temporal) Resp 17 Ht 5' 11 (1.803 m) Comment: per chart Wt 202 lb 3.2 oz (91.7 kg) SpO2 96% BMI 28.20 kg/m Recent Labs 10/03/20 0440 10/04/20 0211 10/05/20 0051 NA 141 142 142 K 4.4 4.3 4.1 CREATININE 1.89* 2.14* 2.42* Physical Exam Constitutional: General: He is not in acute distress. Appearance: Normal appearance. He is not ill-appearing or toxic-appearing. Eyes: Pupils: Pupils are equal, round, and reactive to light. Neck: Musculoskeletal: Normal range of motion. Cardiovascular: Rate and Rhythm: Normal rate. Rhythm irregular. Pulses: Normal pulses. Heart sounds: Normal heart sounds. No murmur. No friction rub. No gallop. Pulmonary: Effort: Pulmonary effort is normal. No respiratory distress. Breath sounds: Normal breath sounds. No wheezing or rales. Abdominal: General: Bowel sounds are normal. There is no distension. Palpations: Abdomen is soft. Tenderness: There is no abdominal tenderness. Musculoskeletal: Normal range of motion. Right lower leg: No edema. Left lower leg: No edema. Skin: General: Skin is warm and dry. Capillary Refill: Capillary refill takes less than 2 seconds. Neurological: Mental Status: He is alert and oriented to person, place, and time. Psychiatric: Mood and Affect: Mood normal. Behavior: Behavior normal. Thought Content: Thought content normal. Judgment: Judgment normal. Current Outpatient Medications Medication Instructions amiodarone (CORDARONE) 200 mg, Oral, DAILY apixaban (ELIQUIS) 2.5 mg, Oral, 2 TIMES DAILY aspirin 81 mg, Oral, DAILY atorvastatin (LIPITOR) 40 mg, Oral, DAILY balsalazide (COLAZAL) 2,250 mg, Oral, 2 TIMES DAILY ferrous sulfate (IRON 325) 325 mg, Oral, DAILY WITH BREAKFAST levothyroxine (SYNTHROID) 50 mcg, Oral, DAILY lisinopril (PRINIVIL;ZESTRIL) 20 mg, Oral, DAILY metoprolol tartrate (LOPRESSOR) 25 mg, Oral, DAILY pantoprazole (PROTONIX) 40 mg, Oral, DAILY polyethylene glycol (GLYCOLAX) 17 g, Oral, DAILY PRN vitamin B-12 (CYANOCOBALAMIN) 500 mcg, Oral, DAILY zinc gluconate 50 mg, Oral, DAILY ASSESSMENT/PLAN: Patient Active Problem List Diagnosis Code Parapneumonic effusion J18.9, J91.8 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) use of antibiotics Z79.2 Atrial fibrillation (HCC) I48.[address] today to suction MYRON on loop diuretics Medical management per primary Will continue to follow Disclaimer INFORMED CONSENT:The nature and purpose of the proposed treatment or procedure have been discussed.The risks and benefits of the proposed treatment or procedures have been reviewed. Alternatives have been reviewed in addition to the risks and benefits of not receiving treatments or undergoing procedures. Pursuant to this discussion, the patient agrees to undergo the proposed treatment or procedure. Captured images seen in this note from are not a substitute for a comprehensive interpretation of the entire data set as reflected by the interpreting physician with regard to radiology, echocardiography, and other diagnostic images. This note may have been dictated using [employer] Edition 2.6 and/or [employer] Voice Recognition Feature. The document was proofread, however unrecognized voice recognition dinkey engine mechanic errors may be present. * Afshan Pfeiffer MD - 10/04/2020 1:06 PM EDT Images from the original note were not included. Hospitalist Progress Note 10/04/2020 1:06 PM [phone]: Please page me for patient care issues. [phone]: Please page [facility] night Hospitalist for any issues. Subjective: Admit Date: 10/02/2020 PCP: No primary care provider on file. Room#: 6108/160109 I was wearing N95 mask throughout the patient encounter. Interval History: Mild pain in right chest. No shortness of breath. Tolerating po. No n/v. Had BM. DIET LOW SODIUM 2 GM; 1500 ml Diet NPO Time Specified Exceptions are: Sips with Meds Patient Vitals for the past 96 hrs (Last 3 readings): Weight 10/03/20 0136 202 lb 3.2 oz (91.7 kg) Medications: sodium chloride sodium chloride sodium chloride apixaban 5 mg Oral BID sodium chloride flush 5-40 mL Intravenous 2 times per day sodium chloride flush 10 mL Intracatheter Q12H heparin flush 250 Units Intracatheter Q12H stomahesive in petrolatum Topical TID atorvastatin 40 mg Oral Nightly vitamin B-12 500 mcg Oral Daily ferrous sulfate 325 mg Oral Daily with breakfast levothyroxine 50 mcg Oral Daily amiodarone 200 mg Oral Daily aspirin 81 mg Oral Daily pantoprazole 40 mg Oral Daily balsalazide 750 mg Oral Daily [Held by provider] lisinopril 20 mg Oral Daily metoprolol tartrate 25 mg Oral Daily sodium chloride flush 10 mL Intravenous 2 times per day ethacrynate (EDECRIN) IVPB 50 mg Intravenous BID cefTRIAXone (ROCEPHIN) IV 1,000 mg Intravenous Q24H LABS: CBC: No results for input(s): WBC, RBC, HGB, HCT, MCV, RDW, PLT in the last 72 hours. BMP: Recent Labs 10/03/20 0440 10/04/20 0211 NA 141 142 K 4.4 4.3 CL 115* 115* CO2 21* 25 BUN 37* 40* CREATININE 1.89* 2.14* GLUCOSE 106* 109* CALCIUM 8.8 8.4 ANIONGAP 6 2* LIVER PROFILE: Recent Labs 10/03/20 0440 LABALBU 2.9* PT/INR: No results for input(s): PROTIME, INR in the last 72 hours. CARDIAC ENZYMES: Recent Labs 10/03/20 0440 TROPONINI 0.026 Procalcitonin: Lab Results Component Value Date PROCAL 0.91 09/13/2020 Objective: Vitals: BP 134/72 Pulse 68 Temp 98.6 F (37 C) (Temporal) Resp 17 Ht 5' 11 (1.803 m) Comment: per chart Wt 202 lb 3.2 oz (91.7 kg) SpO2 97% BMI 28.20 kg/m Pulse Ox: SpO2 Av.1 % Min: 96 % Max: 100 % Supplemental O2: General appearance: Awake, no acute distress noted HEENT: Eyes: No scleral icterus, pallor- Oral: Tongue is semi-moist Cardiovascular: S1S2 heard, RRR Respiratory: Has right chest tube. Normal effort, breath sounds little better, no rhonchi or crackles noted. Abdomen: Soft, non-tender, non-distended with normal bowel sounds. Musculoskeletal: Pedal edema+, no obvious deformities seen Skin: No visible acute rashes or lesions. Neuro: intact, grossly non-focal. Assessment Atrial flutter Pneumothorax Recent VATS CAD - stable CKD3 Stage 3 pressure injury right buttock Plan Volume status improving. Has CT guided chest tube. Planned for ROSI + DCC. Monitoring vitals and electrolytes. Breathing better. Appreciate wound care. DVT prophylaxis - Holding 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, SCDs. Advance Directive: Full Code Discharge planning: TBD * Zeina Gonzalez MD - 10/04/2020 9:59 AM EDT CARDIOLOGY PROGRESS NOTE Chart and interval events reviewed. Reason for Visit: Atrial flutter SUBJECTIVE: Amaury Blank states that he feels a lot better today. He is S/P chest tube placement yesterdayand has drained about 500 ml. Chest X ray this morning revealed no pneumothorax but has pleural effusions. Telemetry reviewed: Atrial flutter with rates in the 70's. SCHEDULED MEDICATIONS: sodium chloride flush 10 mL Intracatheter Q12H heparin flush 250 Units Intracatheter Q12H stomahesive in petrolatum Topical TID atorvastatin 40 mg Oral Nightly vitamin B-12 500 mcg Oral Daily ferrous sulfate 325 mg Oral Daily with breakfast levothyroxine 50 mcg Oral Daily amiodarone 200 mg Oral Daily aspirin 81 mg Oral Daily pantoprazole 40 mg Oral Daily balsalazide 750 mg Oral Daily [Held by provider] lisinopril 20 mg Oral Daily metoprolol tartrate 25 mg Oral Daily apixaban 2.5 mg Oral BID sodium chloride flush 10 mL Intravenous 2 times per day ethacrynate (EDECRIN) IVPB 50 mg Intravenous BID cefTRIAXone (ROCEPHIN) IV 1,000 mg Intravenous Q24H Active Problems: Atrial fibrillation (HCC) Resolved Problems: * No resolved hospital problems. * Review of Systems: Review of Systems VITAL SIGNS: Vitals: 10/03/20 1515 10/03/20 1806 10/04/20 0036 10/04/20 0536 BP: (!) 113/58 (!) 144/60 (!) 124/56 (!) 162/79 Pulse: 81 64 91 70 Resp: 17 16 17 18 Temp: 97.4 F (36.3 C) 97.9 F (36.6 C) 98.9 F (37.2 C) TempSrc: Temporal Temporal Temporal SpO2: 99% 97% 96% 97% Weight: Height: Intake/Output Summary (Last 24 hours) at 10/04/2020 0959 Last data filed at 10/04/2020 0847 Gross per 24 hour Intake 360 ml Output 1700 ml Net -1340 ml Patient Vitals for the past 96 hrs (Last 3 readings): Weight 10/03/20 0136 202 lb 3.2 oz (91.7 kg) Physical Exam: Physical Exam Constitutional: General: He is not in acute distress. Appearance: Normal appearance. He is well-developed. He is not diaphoretic. HENT: Head: Normocephalic. Mouth/Throat: Pharynx: No oropharyngeal exudate. Eyes: General: No scleral icterus. Right eye: No discharge. Left eye: No discharge. Pupils: Pupils are equal, round, and reactive to light. Neck: Musculoskeletal: Normal range of motion. Thyroid: No thyromegaly. Vascular: No JVD. Cardiovascular: Rate and Rhythm: Normal rate. Rhythm irregular. Chest Wall: PMI is not displaced. Pulses: Normal pulses. Heart sounds: Normal heart sounds. No murmur. No gallop. Pulmonary: Effort: No accessory muscle usage or respiratory distress. Breath sounds: Normal breath sounds. Comments: Chest tube in place and is to suction. Abdominal: General: Bowel sounds are normal. There is no distension or abdominal bruit. Palpations: Abdomen is soft. There is no shifting dullness or hepatomegaly. Tenderness: There is no abdominal tenderness. Musculoskeletal: Normal range of motion. Skin: General: Skin is warm and dry. Neurological: Mental Status: He is alert and oriented to person, place, and time. Data: Scheduled Meds: Reviewed Continuous Infusions: sodium chloride CBC: No results for input(s): WBC, HGB, HCT, PLT in the last 72 hours. BMP: Recent Labs 10/03/20 0440 10/04/20 0211 NA 141 142 K 4.4 4.3 CL 115* 115* CO2 21* 25 BUN 37* 40* CREATININE 1.89* 2.14* INR:No results for input(s): INR in the last 72 hours. No results for input(s): BNP in the last 72 hours. TSH: Lab Results Component Value Date TSH 2.826 10/03/2020 Cardiac Injury Profile: Recent Labs 10/03/20 0440 TROPONINI 0.026 Lipid Profile: Lab Results Component Value Date TRIG 79 10/03/2020 HDL 49 10/03/2020 CHOL 93 10/03/2020 IMPRESSIONS/RECOMMENDATIONS: 1. Atrial flutter: - Fairly well controlled. - He does become symptomatic with atrial flutter and had shortness of breath. States it has improved today. - No evidence of heart failure. - Despite his CKD the recommended dose is 5 mg bid. - Currently, Apixaban has been restarted post procedure at 2.5 mg. - We will increase Eliquis to 5 mg bid today and arrange ROSI-guided DCC tomorrow. - Procedure, risks, benefits, alternatives were reviewed with the patient. The patient understands,accepts and wishes to proceed. 2. Pneumothorax: - S/P chest tube placement with resolution of pneumothorax. 3. CAD: - stable, no angina. No additional testing required. Further recommendations after evaluation by Dr. Carrington. Zeina Gonzalez MD. Fellow, Cardiovascular Disease. PGY . [phone] Associated attestation - Lucia Carrington MD - 10/04/2020 2:56 PM EDT I, Dr. Lucia Carrington MD, saw and evaluated the patient. I personally obtained the hernadez and critical portions of the history and physical exam. I reviewed the chart, the fellow's documentation, and discussed the patient with the fellow. I agree with the fellow's medical decision making and have edited the note to reflect my clinical findings and my assessment and plan. Will arrange ROSI-guided DCC tomorrow. Anticaglation adjusted as recommended. * Vivi Calixto APRN - BOAT REPAIRER - 10/04/2020 7:00 AM EDT Images from the original note were not included. Cardiothoracic Surgery Progress Note PATIENT NAME: Amaury Blank TODAY'S DATE: 10/04/2020 Surgery/Procedure: 10/02/20 Hydropneumothorax with subcutaneous emphysema with CT guided chest tube placement Interval History: Patient resting comfortably in bed. States he feels much better. Lungs clear all lobes. I&Os: CT output: 400 Last recorded/verified vitals in [facility] BP (!) 162/79 Pulse 70 Temp 98.9 F (37.2 C) (Temporal) Resp 18 Ht 5' 11 (1.803 m) Comment:per chart Wt 202 lb 3.2 oz (91.7 kg) SpO2 97% BMI 28.20 kg/m Recent Labs 10/03/20 0440 10/04/20 0211 NA 141 142 K 4.4 4.3 CREATININE 1.89* 2.14* Physical Exam Constitutional: General: He is not in acute distress. Appearance: Normal appearance. He is not ill-appearing or toxic-appearing. Eyes: Pupils: Pupils are equal, round, and reactive to light. Neck: Musculoskeletal: Normal range of motion. Cardiovascular: Rate and Rhythm: Normal rate. Rhythm irregular. Pulses: Normal pulses. Heart sounds: Normal heart sounds. No murmur. No friction rub. No gallop. Pulmonary: Effort: Pulmonary effort is normal. No respiratory distress. Breath sounds: Normal breath sounds. No wheezing or rales. Abdominal: General: Bowel sounds are normal. There is no distension. Palpations: Abdomen is soft. Tenderness: There is no abdominal tenderness. Musculoskeletal: Normal range of motion. Right lower leg: No edema. Left lower leg: No edema. Skin: General: Skin is warm and dry. Capillary Refill: Capillary refill takes less than 2 seconds. Neurological: Mental Status: He is alert and oriented to person, place, and time. Psychiatric: Mood and Affect: Mood normal. Behavior: Behavior normal. Thought Content: Thought content normal. Judgment: Judgment normal. Current Outpatient Medications Medication Instructions amiodarone (CORDARONE) 200 mg, Oral, DAILY apixaban (ELIQUIS) 2.5 mg, Oral, 2 TIMES DAILY aspirin 81 mg, Oral, DAILY atorvastatin (LIPITOR) 40 mg, Oral, DAILY balsalazide (COLAZAL) 2,250 mg, Oral, 2 TIMES DAILY ferrous sulfate (IRON 325) 325 mg, Oral, DAILY WITH BREAKFAST levothyroxine (SYNTHROID) 50 mcg, Oral, DAILY lisinopril (PRINIVIL;ZESTRIL) 20 mg, Oral, DAILY metoprolol tartrate (LOPRESSOR) 25 mg, Oral, DAILY metroNIDAZOLE (FLAGYL) 500 mg, Oral, 3 TIMES DAILY pantoprazole (PROTONIX) 40 mg, Oral, DAILY polyethylene glycol (GLYCOLAX) 17 g, Oral, DAILY PRN vitamin B-12 (CYANOCOBALAMIN) 500 mcg, Oral, DAILY zinc gluconate 50 mg, Oral, DAILY ASSESSMENT/PLAN: Patient Active Problem List Diagnosis Code Parapneumonic effusion J18.9, J91.8 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) use of antibiotics Z79.2 Atrial fibrillation (HCC) I48.[address] to suction R Pleural effusion-continue lasix Medical management per primary Will continue to follow Disclaimer INFORMED CONSENT:The nature and purpose of the proposed treatment or procedure have been discussed.The risks and benefits of the proposed treatment or procedures have been reviewed. Alternatives have been reviewed in addition to the risks and benefits of not receiving treatments or undergoing procedures. Pursuant to this discussion, the patient agrees to undergo the proposed treatment or procedure. Captured images seen in this note from are not a substitute for a comprehensive interpretation of the entire data set as reflected by the interpreting physician with regard to radiology, echocardiography, and other diagnostic images. This note may have been dictated using [employer] Edition 2.6 and/or [employer] Voice Recognition Feature. The document was proofread, however unrecognized voice recognition dinkey engine mechanic errors may be present. * Alexia Montiel RN - 10/03/2020 2:46 PM EDT Patient arrived to CT department from [facility] for right chest tube placement. Dr. White in to discuss procedure with patient and informed consent obtained. Patient assisted to CT table and placed supine. surveillance monitor on. 10.2 fr catheter placed right anterior chest wall. 400 cc cody colored fluid removed. Chest tube secured with suture and pneumostat chest drain valve placed on end. Area dressed with Stay fix and tegaderm Patient tolerated procedure well. Report called and patient transferred to [facility]. * Afshan Pfeiffer MD - 10/03/2020 11:08 AM EDT Images from the original note were not included. Hospitalist Progress Note 10/03/2020 11:08 AM [phone]: Please page me for patient care issues. [phone]: Please page [facility] night Hospitalist for any issues. Subjective: Admit Date: 10/02/2020 PCP: No primary care provider on file. Room#: [id number] I was wearing N95 mask throughout the patient encounter. Interval History: Breathing little better. Denies chest pain. No n/v. Tolerating po. DIET LOW SODIUM 2 GM; 1500 ml Patient Vitals for the past 96 hrs (Last 3 readings): Weight 10/03/20 0136 202 lb 3.2 oz (91.7 kg) Medications: sodium chloride atorvastatin 40 mg Oral Nightly vitamin B-12 500 mcg Oral Daily ferrous sulfate 325 mg Oral Daily with breakfast levothyroxine 50 mcg Oral Daily amiodarone 200 mg Oral Daily aspirin 81 mg Oral Daily pantoprazole 40 mg Oral Daily balsalazide 750 mg Oral Daily [Held by provider] lisinopril 20 mg Oral Daily metoprolol tartrate 25 mg Oral Daily [Held by provider] apixaban 2.5 mg Oral BID sodium chloride flush 10 mL Intravenous 2 times per day ethacrynate (EDECRIN) IVPB 50 mg Intravenous BID cefTRIAXone (ROCEPHIN) IV 1,000 mg Intravenous Q24H LABS: CBC: No results for input(s): WBC, RBC, HGB, HCT, MCV, RDW, PLT in the last 72 hours. BMP: Recent Labs 10/03/20 0440 NA 141 K 4.4 CL 115* CO2 21* BUN 37* CREATININE 1.89* GLUCOSE 106* CALCIUM 8.8 ANIONGAP 6 LIVER PROFILE: Recent Labs 10/03/20439 LABALBU 2.9* PT/INR: No results for input(s): PROTIME, INR in the last 72 hours. CARDIAC ENZYMES: Recent Labs 10/03/20439 TROPONINI 0.026 Procalcitonin: Lab Results Component Value Date PROCAL 0.91 09/13/2020 Objective: Vitals: BP (!) 150/61 Pulse 69 Temp 97.5 F (36.4 C) (Temporal) Resp 15 Wt 202 lb 3.2 oz (91.7 kg) SpO2 98% BMI 28.20 kg/m Pulse Ox: SpO2 Av.5 % Min: 97 % Max: 98 % Supplemental O2: General appearance: Awake, no acute distress noted HEENT: Eyes: No scleral icterus, pallor- Oral: Tongue is semi-moist Cardiovascular: S1S2 heard, RRR Respiratory: Normal effort, decreased breath sounds in bases, no rhonchi or crackles noted. Abdomen: Soft, non-tender, non-distended with normal bowel sounds. Musculoskeletal: Pedal edema+, no obvious deformities seen Skin: No visible acute rashes or lesions. Neuro: intact, grossly non-focal. Assessment Atrial flutter Pneumothorax Recent VATS CAD - stable CKD3 Plan Diuresis Planned for CT guided chest tube Monitor vitals and electrolytes. Breathing better. DVT prophylaxis - Holding 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, SCDs. Advance Directive: Full Code Discharge planning: TBD * Suraj Quezada RPH - 10/03/2020 7:10 AM EDT Amaury Grangering was ordered Zinc Gluconate. Per [facility] Policy #4005, herbals and certain dietary supplements are automatically discontinued for the duration of the hospital stay. The product remains on the Home Medication List for resumption at discharge unless specifically discontinued by the prescriber. If there is a need for acute treatment using this agent, please contact the pharmacy for further assistance. Suraj Quezada RPh documented in this encounter Assessments Diagnosis Parapneumonic effusion- Primary Other specified forms of effusion, except tuberculous 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) use of antibiotics Diagnosis Hydropneumothorax- Primary Other specified forms of effusion, except tuberculous Parapneumonic effusion Other specified forms of effusion, except tuberculous CKD (chronic kidney disease), stage IV (HCC) Chronic kidney disease, Stage IV (severe) Macrocytic anemia Unspecified deficiency anemia detention (current) use of antibiotics Atrial fibrillation (HCC) Atrial fibrillation Advance Directives No Advanced Directives Records FoundLatest Code Status on File Code Status Date Activated Date Inactivated Comments Limited 09/11/2020 10:26 PM Intubation/Re-intubation: No Defibrillation/Cardioversion: No Chest Compressions: No Resuscitative Medications: Yes Other (Specify in Free Text): okay for NIV Full Code 09/11/2020 9:03 PM 09/11/2020 10:26 PM Latest Code Status on File Code Status Date Activated Date Inactivated Comments Full Code 10/05/2020 2:16 PM Full Code 10/04/2020 11:10 AM 10/05/2020 2:16 PM Full Code 10/02/2020 10:25 PM 10/04/2020 11:10 AM Limited 09/11/2020 10:26 PM 09/21/2020 7:09 PM Advance Directive Response Recorded Date/ Time Advance Directives Yes April 12:00pm Living Will Yes July 25 10:52am Power of Saw Filer Yes July 25, 2021 10:52am Advance Directive Response Recorded Date/ Time Name of Medical Power of Saw Filer blank eddyw rosamaria May 20, 2022 4:00pm Advance Directives Yes April 11:00am Living Will Yes May 20, 2 022 4:00pm Power of Saw Filer Yes May 20, 2022 4:00pm Advance Directive Response Recorded Date/ Time Advance Directives Yes April 12:00pm Living Will Yes May 20, 2 022 5:00pm Power of Saw Filer Yes May 20, 2022 5:00pm Advance Directive Response Recorded Date/ Time Name of Medical Power of Saw Filer November 29, 2022 1:42am Advance Directives Yes April 12:00pm Living Will Yes November 29, 2022 1 :42am Power of Saw Filer Yes November 29, 2022 1:42am Advance Directive Response Recorded Date/ Time Name of Medical Power of Saw Filer . November 29, 2022 5:23am Advance Directives Yes April 12:00pm Living Will Yes November 29, 2022 5 :23am Power of Saw Filer Yes November 29, 2022 5:23am Advance Directive Response Recorded Date/ Time Name of Medical Power of Saw Filer . November 29, 2022 5:23am Name of Medical Power of Saw Filer Jus and Kasi Blank, both son's December 04, 2022 3:50pm Advance Directives Yes April 12:00pm Living Will Yes December 04, 2022 3 :50pm Power of Saw Filer Yes December 04, 2022 3:50pm Advance Directive Response Recorded Date/ Time Name of Medical Power of Saw Filer . November 29, 2022 5:23am Name of Medical Power of Saw Filer Jus and Kasi Blank, both son's December 04, 2022 3:50pm Advance Directives Yes April 12:00pm Living Will Yes December 20, 2022 11:21am Power of Saw Filer Yes December 20 11:21am Advance Directive Response Recorded Date/ Time Name of Medical Power of Saw Filer . November 29, 2022 5:23am Name of Medical Power of Saw Filer Jus and Kasi Blank, both son's December 04, 2022 3:50pm Name of Medical Power of Saw Filer SON December 20, 2022 11:21am Advance Directives Yes April 12:00pm Living Will Yes December 20, 2022 11:21am Power of Saw Filer Yes December 20 11:21am Advance Directive Response Recorded Date/ Time Name of Medical Power of Saw Filer . November 29, 2022 5:23am Name of Medical Power of Saw Filer Jus and Kasi Blank, both son's December 04, 2022 3:50pm Name of Medical Power of Saw Filer SON December 20, 2022 11:21am Name of Medical Power of Saw Filer Kasi and Jus Blank January 03, 2023 6:43am Advance Directives Yes April 12:00pm Living Will Yes January 03, 2023 6 :43am Power of Saw Filer Yes January 03, 2023 6:43am Latest Code Status on File Code Status Date Activated Date Inactivated Comments DNR-CCA 01/06/2023 1:46 PM 01/09/2023 4:42 PM Question Answer Comments DNR Order Discussed With: Patient Advance Directive Response Recorded Date/ Time Name of Medical Power of Saw Filer Kais and Jus Blank January 03, 2023 6:43am Advance Directives Yes April 12:00pm Living Will Yes January 03, 2023 6 :43am Power of Saw Filer Yes January 03, 2023 6:43am Latest Code Status on File Code Status Date Activated Date Inactivated Comments DNR-CCA 01/06/2023 1:46 PM 01/09/2023 4:42 PM Question Answer Comments DNR Order Discussed With: Patient Advance Directive Response Recorded Date/ Time Advance Directives Yes April 11:00am Living Will Yes January 03, 2023 5 :43am Power of Saw Filer Yes January 03, 2023 5:43am Advance Directive Response Recorded Date/ Time Advance Directives Yes April 11:00am Living Will No June 06 4:25pm Power of Saw Filer No June 06, 2023 4:25pm Advance Directive Response Recorded Date/ Time Advance Directives Yes April 11:00am Living Will No June 20, 023 8:26am Power of Saw Filer No June 20, 2023 8:26am Advance Directive Response Recorded Date/ Time Advance Directives Yes April 12:00pm Living Will No June 20, 2 023 9:26am Power of Saw Filer No June 20, 2023 9:26am Advance Directive Response Recorded Date/ Time Name of Medical Power of Saw Filer cecilia blank November 10, 2023 5:50pm Advance Directives Yes April 12:00pm Living Will Yes November 10, 2023 5 :50pm Power of Saw Filer Yes November 10, 2023 5:50pm Advance Directive Response Recorded Date/ Time Advance Directives Yes April 12:00pm Advance Directive Response Recorded Date/ Time Living Will Yes May 11, 021 7:05pm Do you have a Healthcare Pow er of Saw Filer? Yes May 11, 2021 7:05pm Do you have a Healthcare Pow er of Saw Filer? Yes November 08, 2024 4:17pm Name of Medical Power of Saw Filer Cecilia Gordillo November 08, 2024 4:17pm Advance Directives Yes April 12:00pm Advance Directive Response Recorded Date/ Time Living Will Yes May 11, 021 7:05pm Do you have a Healthcare Pow er of Saw Filer? Yes May 11, 2021 7:05pm Do you have a Healthcare Pow er of Saw Filer? Yes November 08, 2024 4:17pm Name of Medical Power of Saw Filer Cecilia Gordillo November 08, 2024 4:17pm Do you have a Healthcare Pow er of Saw Filer? Yes December 14, 2024 9:04am Name of Medical Power of Saw Filer BETWEEN 2 SONS- LENCHO December 14, 2024 9:04am Advance Directives Yes April 12:00pm Summary Purpose Family History No Family History Records Found Relationship Condition Age at Onset Recorded Date/T bloa father Coronary artery disease Unknown mother Malignant neoplasm Unknown Chief Complaint and Reason for Visit Chief Complaint LABS 6MO LABS PRIOR CAROTID, MESENTERIC & SUCLAVIAN ARTERY STENOSIS Reason for Visit Anemia Chronic kidney disease (CKD) Pancytopenia Chief Complaint HYPERTENSION 6 M FU PER MMM Reason for Visit Mitral valve insuffi ciency PAD (peripheral artery disease) Atherosclerotic heart disease of [place] coronary artery without angina pectoris Atrial fibrillation and flutter Essential hypertension Hyperlipidemia [id number] Aortocoronary bypass status Mitral valve insufficiency PAD (peripheral artery disease) Atherosclerotic heart disease of [place] coronary artery without angina pectoris Atrial fibrillation and flutter Essential hypertension Hyperlipidemia [id number] Aortocoronary bypass status Chief Complaint 4 M FU Reason for Visit Mitral valve insuffi ciency PAD (peripheral artery disease) Atherosclerotic heart disease of [place] coronary artery without angina pectoris Atrial fibrillation and flutter Essential hypertension Hyperlipidemia Chief Complaint 4 M FU FALL, ELEVATED TROPONIONS, PANCYTOPENIA FALL, ELEVATED TROPONIONS, PANCYTOPENIA Reason for Visit Mitral valve insuffi ciency PAD (peripheral artery disease) Atherosclerotic heart disease of [place] coronary artery without angina pectoris Atrial fibrillation and flutter Essential hypertension Hyperlipidemia Acute renal insufficiency Elevated troponin Fever Generalized weakness Pancytopenia Pneumonia Skin tear Chronic kidney insufficiency Chief Complaint 4 M FU FALL, ELEVATED TROPONIONS, PANCYTOPENIA FALL, ELEVATED TROPONIONS, PANCYTOPENIA FALL, ELEVATED TROPONIONS, PANCYTOPENIA FALL, ELEVATED TROPONIONS, PANCYTOPENIA FALL, ELEVATED TROPONIONS, PANCYTOPENIA FALL, ELEVATED TROPONIONS, PANCYTOPENIA Reason for Visit Mitral valve insuffi ciency PAD (peripheral artery disease) Atherosclerotic heart disease of [place] coronary artery without angina pectoris Atrial fibrillation and flutter Essential hypertension Hyperlipidemia Acute renal insufficiency Bacteremia Elevated troponin Fever Generalized weakness Pancytopenia Pneumonia Skin tear Atrial fibrillation Chronic kidney disease (CKD) Chronic kidney insufficiency Chief Complaint 4 M FU FALL, ELEVATED TROPONIONS, PANCYTOPENIA FALL, ELEVATED TROPONIONS, PANCYTOPENIA FALL, ELEVATED TROPONIONS, PANCYTOPENIA FALL, ELEVATED TROPONIONS, PANCYTOPENIA FALL, ELEVATED TROPONIONS, PANCYTOPENIA FALL, ELEVATED TROPONIONS, PANCYTOPENIA FALL 2 UNITS PRBC Reason for Visit Mitral valve insuffi ciency PAD (peripheral artery disease) Atherosclerotic heart disease of [place] coronary artery without angina pectoris Atrial fibrillation and flutter Essential hypertension Hyperlipidemia Acute renal insufficiency Pancytopenia Skin tear Atrial fibrillation Chronic kidney insufficiency Bacteremia Generalized weakness Pneumonia Acute diastolic (congestive) heart failure Acute kidney injury Alcohol dependence Atrial fibrillation Coronary artery disease Debility Hyperlipidemia Hypothyroidism Iron deficiency anemia Pancytopenia Ulcerative colitis Hypertension Bacteremia Pneumonia Chief Complaint 4 M FU FALL, ELEVATED TROPONIONS, PANCYTOPENIA FALL, ELEVATED TROPONIONS, PANCYTOPENIA FALL, ELEVATED TROPONIONS, PANCYTOPENIA FALL, ELEVATED TROPONIONS, PANCYTOPENIA FALL, ELEVATED TROPONIONS, PANCYTOPENIA FALL, ELEVATED TROPONIONS, PANCYTOPENIA FALL 2 UNITS PRBC FALL FALL Reason for Visit Mitral valve insuffi ciency PAD (peripheral artery disease) Atherosclerotic heart disease of [place] coronary artery without angina pectoris Atrial fibrillation and flutter Essential hypertension Hyperlipidemia Acute renal insufficiency Pancytopenia Skin tear Atrial fibrillation Chronic kidney insufficiency Bacteremia Generalized weakness Pneumonia Acute diastolic (congestive) heart failure Acute kidney injury Acute renal insufficiency Alcohol dependence Anemia Atrial fibrillation Coronary artery disease Debility Hyperlipidemia Hypothyroidism Iron deficiency anemia Pancytopenia Ulcerative colitis Hypertension Bacteremia Pneumonia Chief Complaint 4 M FU FALL, ELEVATED TROPONIONS, PANCYTOPENIA FALL, ELEVATED TROPONIONS, PANCYTOPENIA FALL, ELEVATED TROPONIONS, PANCYTOPENIA FALL, ELEVATED TROPONIONS, PANCYTOPENIA FALL, ELEVATED TROPONIONS, PANCYTOPENIA FALL, ELEVATED TROPONIONS, PANCYTOPENIA FALL 2 UNITS PRBC FALL FALL Reason for Visit Mitral valve insuffi ciency PAD (peripheral artery disease) Atherosclerotic heart disease of [place] coronary artery without angina pectoris Atrial fibrillation and flutter Essential hypertension Hyperlipidemia Skin tear Atrial fibrillation Chronic kidney insufficiency Acute renal insufficiency Bacteremia Generalized weakness Pancytopenia Pneumonia Acute kidney injury Alcohol dependence Anemia Atrial fibrillation Coronary artery disease Debility Hyperlipidemia Hypothyroidism Iron deficiency anemia Ulcerative colitis Hypertension Acute diastolic (congestive) heart failure Acute renal insufficiency Bacteremia Pancytopenia Pneumonia Chief Complaint 4 M FU FALL, ELEVATED TROPONIONS, PANCYTOPENIA FALL, ELEVATED TROPONIONS, PANCYTOPENIA FALL, ELEVATED TROPONIONS, PANCYTOPENIA FALL, ELEVATED TROPONIONS, PANCYTOPENIA FALL, ELEVATED TROPONIONS, PANCYTOPENIA FALL, ELEVATED TROPONIONS, PANCYTOPENIA FALL 2 UNITS PRBC FALL FALL Fall Reason for Visit Mitral valve insuffi ciency PAD (peripheral artery disease) Atherosclerotic heart disease of [place] coronary artery without angina pectoris Atrial fibrillation and flutter Essential hypertension Hyperlipidemia Skin tear Atrial fibrillation Chronic kidney insufficiency Acute renal insufficiency Bacteremia Generalized weakness Pancytopenia Pneumonia Acute kidney injury Alcohol dependence Anemia Atrial fibrillation Coronary artery disease Debility Hyperlipidemia Hypothyroidism Iron deficiency anemia Ulcerative colitis Hypertension Acute diastolic (congestive) heart failure Acute renal insufficiency Bacteremia Pancytopenia Pneumonia Chief Complaint 4 M FU FALL, ELEVATED TROPONIONS, PANCYTOPENIA FALL, ELEVATED TROPONIONS, PANCYTOPENIA FALL, ELEVATED TROPONIONS, PANCYTOPENIA FALL, ELEVATED TROPONIONS, PANCYTOPENIA FALL, ELEVATED TROPONIONS, PANCYTOPENIA FALL, ELEVATED TROPONIONS, PANCYTOPENIA FALL 2 UNITS PRBC FALL FALL ADMISSION EXAM [facility] LAB WORK ADMISSION EXAM [facility] LAB WORK Fall LABWORK READMISSION EXAM LABWORK LAB WORK LAB WORK S/P [facility] 01/09/23 (SCANNED) Reason for Visit Mitral valve insuffi ciency PAD (peripheral artery disease) Atherosclerotic heart disease of [place] coronary artery without angina pectoris Atrial fibrillation and flutter Essential hypertension Hyperlipidemia Skin tear Atrial fibrillation Chronic kidney insufficiency Acute renal insufficiency Bacteremia Generalized weakness Pancytopenia Pneumonia Acute kidney injury Alcohol dependence Anemia Atrial fibrillation Coronary artery disease Debility Hyperlipidemia Hypothyroidism Iron deficiency anemia Ulcerative colitis Hypertension Acute diastolic (congestive) heart failure Acute renal insufficiency Bacteremia Pancytopenia Pneumonia Mitral valve insufficiency PAD (peripheral artery disease) Atherosclerotic heart disease of [place] coronary artery without angina pectoris Atrial fibrillation and flutter Essential hypertension Hyperlipidemia Chief Complaint 4 M FU FALL, ELEVATED TROPONIONS, PANCYTOPENIA FALL, ELEVATED TROPONIONS, PANCYTOPENIA FALL, ELEVATED TROPONIONS, PANCYTOPENIA FALL, ELEVATED TROPONIONS, PANCYTOPENIA FALL, ELEVATED TROPONIONS, PANCYTOPENIA FALL, ELEVATED TROPONIONS, PANCYTOPENIA FALL 2 UNITS PRBC FALL FALL ADMISSION EXAM [facility] LAB WORK ADMISSION EXAM [facility] LAB WORK Fall LABWORK READMISSION EXAM LABWORK LAB WORK LAB WORK S/P [facility] 01/09/23 (SCANNED) LAB WORK Reason for Visit Mitral valve insuffi ciency PAD (peripheral artery disease) Atherosclerotic heart disease of [place] coronary artery without angina pectoris Atrial fibrillation and flutter Essential hypertension Hyperlipidemia Skin tear Atrial fibrillation Chronic kidney insufficiency Acute renal insufficiency Bacteremia Generalized weakness Pancytopenia Pneumonia Acute kidney injury Alcohol dependence Anemia Atrial fibrillation Coronary artery disease Debility Hyperlipidemia Hypothyroidism Iron deficiency anemia Ulcerative colitis Hypertension Acute diastolic (congestive) heart failure Acute renal insufficiency Bacteremia Pancytopenia Pneumonia Mitral valve insufficiency PAD (peripheral artery disease) Atherosclerotic heart disease of [place] coronary artery without angina pectoris Atrial fibrillation and flutter Essential hypertension Hyperlipidemia Chief Complaint FALL, ELEVATED TROPO NIONS, PANCYTOPENIA FALL, ELEVATED TROPONIONS, PANCYTOPENIA FALL, ELEVATED TROPONIONS, PANCYTOPENIA FALL, ELEVATED TROPONIONS, PANCYTOPENIA FALL, ELEVATED TROPONIONS, PANCYTOPENIA FALL, ELEVATED TROPONIONS, PANCYTOPENIA FALL 2 UNITS PRBC FALL FALL ADMISSION EXAM [facility] LAB WORK ADMISSION EXAM [facility] LAB WORK Fall LABWORK READMISSION EXAM LABWORK LAB WORK LAB WORK S/P [facility] 01/09/23 (SCANNED) LAB WORK LAB WORK Reason for Visit Skin tear Atrial fibrillation Chronic kidney insufficiency Acute renal insufficiency Bacteremia Generalized weakness Pancytopenia Pneumonia Acute kidney injury Alcohol dependence Anemia Atrial fibrillation Coronary artery disease Debility Hyperlipidemia Hypothyroidism Iron deficiency anemia Ulcerative colitis Hypertension Acute diastolic (congestive) heart failure Acute renal insufficiency Bacteremia Pancytopenia Pneumonia Mitral valve insufficiency PAD (peripheral artery disease) Atherosclerotic heart disease of [place] coronary artery without angina pectoris Atrial fibrillation and flutter Essential hypertension Hyperlipidemia Chief Complaint ADMISSION EXAM [facility] LAB WORK Fall LABWORK READMISSION EXAM LABWORK LAB WORK LAB WORK S/P [facility] 01/09/23 (SCANNED) LAB WORK LAB WORK LAB WORK LAB WORK LAB WORK LAB WORK LAB WORK LAB WORK LAB WORK LAB WORK 1YR LABS PRIOR([place]) WOUND Reason for Visit Mitral valve insuffi ciency PAD (peripheral artery disease) Atherosclerotic heart disease of [place] coronary artery without angina pectoris Atrial fibrillation and flutter Essential hypertension Hyperlipidemia Anemia Pancytopenia Peripheral vascular disease Non-pressure 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 Chief Complaint LAB WORK S/P [facility] 01/09/23 (SCANNED) LAB WORK LAB WORK LAB WORK LAB WORK LAB WORK LAB WORK LAB WORK LAB WORK LAB WORK LAB WORK 1YR LABS PRIOR([facility]) WOUND CONSULT-FOOT WOUND LT HEEL WOUND BRUIT OF RT CAROTID, CAD Reason for Visit Mitral valve insuffi ciency PAD (peripheral artery disease) Atherosclerotic heart disease of [place] coronary artery without angina pectoris Atrial fibrillation and flutter Essential hypertension Hyperlipidemia Anemia Pancytopenia Peripheral vascular disease Non-pressure 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 Peripheral vascular disease Non-pressure 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 Peripheral vascular disease Non-pressure 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 Chief Complaint LAB WORK LAB WORK LAB WORK LAB WORK LAB WORK LAB WORK LAB WORK LAB WORK LAB WORK 1YR LABS PRIOR([place]) WOUND CONSULT-FOOT WOUND LT HEEL BRUIT OF RT CAROTID, CAD WOUND Reason for Visit Anemia Pancytopenia Peripheral vascular disease Non-pressure 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 Peripheral vascular disease Non-pressure 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 Peripheral vascular disease Non-pressure 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 Chief Complaint LAB WORK LAB WORK LAB WORK LAB WORK LAB WORK LAB WORK LAB WORK LAB WORK 1YR LABS PRIOR([place]) WOUND CONSULT-FOOT WOUND LT HEEL BRUIT OF RT CAROTID, CAD WOUND WOUND LEG WOUND Reason for Visit Anemia Pancytopenia Peripheral vascular disease Non-pressure 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 Peripheral vascular disease Non-pressure 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 Peripheral vascular disease Non-pressure 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 Cellulitis of right leg Edema Peripheral vascular disease Non-pressure 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 [id number] Chief Complaint LAB WORK LAB WORK LAB WORK LAB WORK LAB WORK LAB WORK 1YR LABS PRIOR([place]) WOUND CONSULT-FOOT WOUND LT HEEL BRUIT OF RT CAROTID, CAD WOUND LEG WOUND 4 W FU WOUND PALPITATION, LEG WEAKNESS? Reason for Visit Anemia Pancytopenia Peripheral vascular disease Non-pressure 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 Peripheral vascular disease Non-pressure 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 Peripheral vascular disease Non-pressure 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 Peripheral vascular disease Non-pressure 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 Cellulitis of right leg Edema Non-pressure ulcer of right lower extremity with necrosis of muscle Peripheral vascular disease Non-pressure 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 [id number] Debility General weakness Hyperkalemia Palpitations Chief Complaint LAB WORK LAB WORK LAB WORK LAB WORK LAB WORK LAB WORK 1YR LABS PRIOR([place]) WOUND CONSULT-FOOT WOUND LT HEEL BRUIT OF RT CAROTID, CAD WOUND LEG WOUND 4 W FU WOUND PALPITATION, LEG WEAKNESS? PALPITATION, LEG WEAKNESS? PALPITATION, LEG WEAKNESS? PALPITATION, LEG WEAKNESS? PALPITATION, LEG WEAKNESS? PALPITATION, LEG WEAKNESS? PALPITATION, LEG WEAKNESS? PALPITATION, LEG WEAKNESS? PALPITATION, LEG WEAKNESS? PALPITATION, LEG WEAKNESS? PALPITATION, LEG WEAKNESS? PALPITATION, LEG WEAKNESS? PALPITATION, LEG WEAKNESS? PALPITATION, LEG WEAKNESS? PALPITATION, LEG WEAKNESS? Reason for Visit Anemia Pancytopenia Peripheral vascular disease Non-pressure 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 Peripheral vascular disease Non-pressure 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 Peripheral vascular disease Non-pressure 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 Peripheral vascular disease Non-pressure 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 Cellulitis of right leg Edema Non-pressure ulcer of right lower extremity with necrosis of muscle Peripheral vascular disease Non-pressure 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 [id number] Acute respiratory failure with hypoxia Anemia Aspiration pneumonia Debility General weakness Hyperkalemia Hyperlipidemia Palpitations Pulmonary hypertension Severe sinus bradycardia Atherosclerotic heart disease of [place] coronary artery without angina pectoris Atrial fibrillation CKD (chronic kidney disease) stage 3, GFR 30-59 ml/min Hypertension Pancytopenia Subclavian artery stenosis, left Chief Complaint LAB WORK LAB WORK LAB WORK LAB WORK LAB WORK 1YR LABS PRIOR([place]) WOUND CONSULT-FOOT WOUND LT HEEL BRUIT OF RT CAROTID, CAD WOUND LEG WOUND 4 W FU WOUND PALPITATION, LEG WEAKNESS? PALPITATION, LEG WEAKNESS? PALPITATION, LEG WEAKNESS? PALPITATION, LEG WEAKNESS? PALPITATION, LEG WEAKNESS? PALPITATION, LEG WEAKNESS? PALPITATION, LEG WEAKNESS? PALPITATION, LEG WEAKNESS? PALPITATION, LEG WEAKNESS? PALPITATION, LEG WEAKNESS? PALPITATION, LEG WEAKNESS? PALPITATION, LEG WEAKNESS? PALPITATION, LEG WEAKNESS? PALPITATION, LEG WEAKNESS? PALPITATION, LEG WEAKNESS? Reason for Visit Anemia Peripheral vascular disease Non-pressure 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 Peripheral vascular disease Non-pressure 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 Peripheral vascular disease Non-pressure 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 Peripheral vascular disease Non-pressure 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 Cellulitis of right leg Edema Non-pressure ulcer of right lower extremity with necrosis of muscle Peripheral vascular disease Non-pressure 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 [id number] Acute respiratory failure with hypoxia Aspiration pneumonia Subclavian artery stenosis, left Chief Complaint LAB WORK LAB WORK LAB WORK 1YR LABS PRIOR([place]) WOUND CONSULT-FOOT WOUND LT HEEL BRUIT OF RT CAROTID, CAD WOUND LEG WOUND 4 W FU WOUND PALPITATION, LEG WEAKNESS? PALPITATION, LEG WEAKNESS? PALPITATION, LEG WEAKNESS? PALPITATION, LEG WEAKNESS? PALPITATION, LEG WEAKNESS? PALPITATION, LEG WEAKNESS? PALPITATION, LEG WEAKNESS? PALPITATION, LEG WEAKNESS? PALPITATION, LEG WEAKNESS? PALPITATION, LEG WEAKNESS? PALPITATION, LEG WEAKNESS? PALPITATION, LEG WEAKNESS? PALPITATION, LEG WEAKNESS? PALPITATION, LEG WEAKNESS? PALPITATION, LEG WEAKNESS? LABS 12 WKS LABS MESENTERIC ARTERY STENOSIS WOUND Reason for Visit Anemia Peripheral vascular disease Non-pressure 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 Peripheral vascular disease Non-pressure 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 Peripheral vascular disease Non-pressure 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 Peripheral vascular disease Non-pressure 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 Cellulitis of right leg Edema Non-pressure ulcer of right lower extremity with necrosis of muscle Peripheral vascular disease Non-pressure 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 [id number] Acute respiratory failure with hypoxia Aspiration pneumonia Subclavian artery stenosis, left Anemia Edema Peripheral vascular disease Non-pressure 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 [id number] Chief Complaint CONSULT-FOOT WOUND L T HEEL BRUIT OF RT CAROTID, CAD WOUND LEG WOUND 4 W FU WOUND PALPITATION, LEG WEAKNESS? PALPITATION, LEG WEAKNESS? PALPITATION, LEG WEAKNESS? PALPITATION, LEG WEAKNESS? PALPITATION, LEG WEAKNESS? PALPITATION, LEG WEAKNESS? PALPITATION, LEG WEAKNESS? PALPITATION, LEG WEAKNESS? PALPITATION, LEG WEAKNESS? PALPITATION, LEG WEAKNESS? PALPITATION, LEG WEAKNESS? PALPITATION, LEG WEAKNESS? PALPITATION, LEG WEAKNESS? PALPITATION, LEG WEAKNESS? PALPITATION, LEG WEAKNESS? 12 WKS LABS MESENTERIC ARTERY STENOSIS WOUND 6WKS LABS LABS WOUND Reason for Visit Peripheral vascular disease Non-pressure 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 Peripheral vascular disease Non-pressure 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 Peripheral vascular disease Non-pressure 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 Cellulitis of right leg Edema Non-pressure ulcer of right lower extremity with necrosis of muscle Peripheral vascular disease Non-pressure 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 [id number] Hyperkalemia Acute respiratory failure with hypoxia Aspiration pneumonia Subclavian artery stenosis, left Anemia Edema [id number] Peripheral vascular disease Non-pressure 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 [id number] Hyperkalemia Iron deficiency anemia Anemia Dermatitis Edema Multiple excoriations [id number] Chief Complaint CONSULT-FOOT WOUND L T HEEL BRUIT OF RT CAROTID, CAD WOUND LEG WOUND 4 W FU WOUND PALPITATION, LEG WEAKNESS? PALPITATION, LEG WEAKNESS? PALPITATION, LEG WEAKNESS? PALPITATION, LEG WEAKNESS? PALPITATION, LEG WEAKNESS? PALPITATION, LEG WEAKNESS? PALPITATION, LEG WEAKNESS? PALPITATION, LEG WEAKNESS? PALPITATION, LEG WEAKNESS? PALPITATION, LEG WEAKNESS? PALPITATION, LEG WEAKNESS? PALPITATION, LEG WEAKNESS? PALPITATION, LEG WEAKNESS? PALPITATION, LEG WEAKNESS? PALPITATION, LEG WEAKNESS? 12 WKS LABS MESENTERIC ARTERY STENOSIS WOUND 6WKS LABS LABS H FU WOUND Reason for Visit Peripheral vascular disease Non-pressure 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 Peripheral vascular disease Non-pressure 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 Peripheral vascular disease Non-pressure 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 Cellulitis of right leg Edema Non-pressure ulcer of right lower extremity with necrosis of muscle Peripheral vascular disease Non-pressure 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 [id number] Hyperkalemia Pancytopenia Acute respiratory failure with hypoxia Aspiration pneumonia Subclavian artery stenosis, left Pancytopenia Anemia Edema [id number] Peripheral vascular disease Non-pressure 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 [id number] Hyperkalemia Iron deficiency anemia Anemia Anemia Ulcerative colitis Dermatitis Edema Multiple excoriations [id number] Chief Complaint BRUIT OF RT CAROTID, CAD WOUND LEG WOUND 4 W FU WOUND PALPITATION, LEG WEAKNESS? PALPITATION, LEG WEAKNESS? PALPITATION, LEG WEAKNESS? PALPITATION, LEG WEAKNESS? PALPITATION, LEG WEAKNESS? PALPITATION, LEG WEAKNESS? PALPITATION, LEG WEAKNESS? PALPITATION, LEG WEAKNESS? PALPITATION, LEG WEAKNESS? PALPITATION, LEG WEAKNESS? PALPITATION, LEG WEAKNESS? PALPITATION, LEG WEAKNESS? PALPITATION, LEG WEAKNESS? PALPITATION, LEG WEAKNESS? PALPITATION, LEG WEAKNESS? 12 WKS LABS MESENTERIC ARTERY STENOSIS 30 DAY MONITOR WHG TO READ/ 14 DAY MONITOR WOUND 6WKS LABS LABS H FU WOUND PANCYTOPENIA WOUND Reason for Visit Peripheral vascular disease Non-pressure 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 Peripheral vascular disease Non-pressure 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 Cellulitis of right leg Edema Non-pressure ulcer of right lower extremity with necrosis of muscle Peripheral vascular disease Non-pressure 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 [id number] Hyperkalemia Pancytopenia Acute respiratory failure with hypoxia Aspiration pneumonia Subclavian artery stenosis, left Pancytopenia Anemia Edema [id number] Peripheral vascular disease Non-pressure 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 [id number] Hyperkalemia Iron deficiency anemia Anemia Anemia Ulcerative colitis Dermatitis Edema Multiple excoriations [id number] Cellulitis of right leg [id number] Chief Complaint WOUND 6WKS LABS H FU WOUND PANCYTOPENIA WOUND 1 Y FU/PREV PFM LABS 12WKS LABS ABNL LABS Reason for Visit Edema [id number] Peripheral vascular disease Non-pressure 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 [id number] Hyperkalemia Iron deficiency anemia Anemia Anemia Ulcerative colitis Dermatitis Edema Multiple excoriations [id number] Cellulitis of right leg [id number] Mitral valve insufficiency PAD (peripheral artery disease) Atrial fibrillation and flutter Essential hypertension Hyperlipidemia Hyperkalemia Iron deficiency anemia Anemia Chief Complaint Admit Date 6 M FU October 01, 2024 12:5 2pm LT SUBCLAVIAN & BILAT CAROTID STENOSIS, PAD October 06, 2024 8:35am Reason for Visit Admit Date Atrial fibrillation October 01, 2024 12:5 2pm Hyperlipidemia October 01, 2024 12:5 2pm Carotid artery stenosis October 01, 2024 12:52pm Coronary artery disease October 01, 2024 12:52pm Essential hypertension October 01, 2024 1 2:52pm Aortocoronary bypass status October 01, 2 025 12:52pm Chief Complaint Admit Date 6 M FU October 01, 2024 12:5 2pm LT SUBCLAVIAN & BILAT CAROTID STENOSIS, PAD October 06, 2024 8:35am LABS November 08, 2024 12:45 pm 1 YEAR LABS November 08, 2024 12:51 pm ABNORMAL LABS November 08, 2024 2:40p m Reason for Visit Admit Date Atrial fibrillation October 01, 2024 12:5 2pm Hyperlipidemia October 01, 2024 12:5 2pm Carotid artery stenosis October 01, 2024 12:52pm Coronary artery disease October 01, 2024 12:52pm Essential hypertension October 01, 2024 1 2:52pm Aortocoronary bypass status October 01, 2 025 12:52pm Iron deficiency anemia November 08, 2024 12 :51pm Anemia November 08, 2024 12:51 pm Chief Complaint Admit Date 6 M FU October 01, 2024 12:5 2pm LT SUBCLAVIAN & BILAT CAROTID STENOSIS, PAD October 06, 2024 8:35am LABS November 08, 2024 12:45 pm 1 YEAR LABS November 08, 2024 12:51 pm ABNORMAL LABS November 08, 2024 2:40p m ARTERY STRICTURE November 18, 2024 7:48a m Chief Complaint Admit Date 6 M FU October 01, 2024 12:5 2pm LT SUBCLAVIAN & BILAT CAROTID STENOSIS, PAD October 06, 2024 8:35am LABS November 08, 2024 12:45 pm 1 YEAR LABS November 08, 2024 12:51 pm ABNORMAL LABS November 08, 2024 2:40p m ARTERY STRICTURE November 18, 2024 7:48a m EORDERS November 29, 2024 2:34p m Chief Complaint Admit Date 6 M FU October 01, 2024 12:5 2pm LT SUBCLAVIAN & BILAT CAROTID STENOSIS, PAD October 06, 2024 8:35am LABS November 08, 2024 12:45 pm 1 YEAR LABS November 08, 2024 12:51 pm ABNORMAL LABS November 08, 2024 2:40p m ARTERY STRICTURE November 18, 2024 7:48a m EORDERS November 29, 2024 2:34p m EORDER December 06, 2024 4:11p m Chief Complaint Admit Date 6 M FU October 01, 2024 12:5 2pm LT SUBCLAVIAN & BILAT CAROTID STENOSIS, PAD October 06, 2024 8:35am LABS November 08, 2024 12:45 pm 1 YEAR LABS November 08, 2024 12:51 pm ABNORMAL LABS November 08, 2024 2:40p m ARTERY STRICTURE November 18, 2024 7:48a m EORDERS November 29, 2024 2:34p m EORDER December 06, 2024 4:11p m SELF REFERRED INGUINAL HERNIA December 10, 2024 1:02pm Chief Complaint Admit Date 6 M FU October 01, 2024 12:5 2pm LT SUBCLAVIAN & BILAT CAROTID STENOSIS, PAD October 06, 2024 8:35am LABS November 08, 2024 12:45 pm 1 YEAR LABS November 08, 2024 12:51 pm ABNORMAL LABS May 12th, 2025 2:40p m ARTERY STRICTURE November 18, 2024 7:48a m EORDERS November 29, 2024 2:34p m EORDER December 06, 2024 4:11p m SELF REFERRED INGUINAL HERNIA December 10, 2024 1:02pm PREOP December 16, 2024 1:11 pm Lap Robotic Inguinal Hernia w/mesh December 27, 2024 8:27am Lap Robotic Inguinal Hernia w/mesh December 27, 2024 10:11am Reason for Visit Admit Date Atrial fibrillation October 01, 2024 12:5 2pm Hyperlipidemia October 01, 2024 12:5 2pm Carotid artery stenosis October 01, 2024 12:52pm Coronary artery disease October 01, 2024 12:52pm Essential hypertension October 01, 2024 1 2:52pm Aortocoronary bypass status October 01, 2 025 12:52pm Iron deficiency anemia November 08, 2024 12 :51pm Anemia November 08, 2024 12:51 pm Left inguinal hernia December 10, 2024 1:0 2pm Chief Complaint Admit Date LABS November 08, 2024 12:45 pm 1 YEAR LABS November 08, 2024 12:51 pm ABNORMAL LABS November 08, 2024 2:40p m ARTERY STRICTURE November 18, 2024 7:48a m EORDERS November 29, 2024 2:34p m EORDER December 06, 2024 4:11p m SELF REFERRED INGUINAL HERNIA December 10, 2024 1:02pm PREOP December 16, 2024 1:11 pm Lap Robotic Inguinal Hernia w/mesh December 27, 2024 8:27am Lap Robotic Inguinal Hernia w/mesh December 27, 2024 10:11am EORDERS/ 2 DRS AND 2 ORDERS February 15, 2025 3:33pm Reason for Visit Admit Date Iron deficiency anemia November 08, 2024 12 :51pm Anemia November 08, 2024 12:51 pm Left inguinal hernia December 10, 2024 1:0 2pm Reason for Referral Specialty Diagnoses / Procedures Referred By Johnson [email or web address] Referred To Contact CT IMAGING Diagnoses Intraparenchymal hematoma of right side of brain due to trauma, with unknown loss of consciousness status, initial encounter ([facility]) Procedures CT BRAIN WO IVCON CT HEAD/BRAIN W/O CONTRAST MATERIAL Sergio Sofia, ARCADE GAME TECHNICIAN.BOAT REPAIRER [address] [place] [address] [place] [address] Referral ID Status Reason Start Date Expiration Date V isits Requested Visits Authorized [id number] Closed Auto-Generated Referral Patient Cleared - INN Insurance Found 01/20/2023 02/05/2024 1 1 Additional Source Comments Reason for Visit (unrecogniz ed section and content) Reason Comments Reason Comments Hospital Follow Up Reason Comments Contact Center Call Reason Comments Radiology CT Specialty Diagnoses / Procedures Referred By Contac t Referred To Contact CT IMAGING Diagnoses Intraparenchymal hematoma of right side of brain due to trauma, with unknown loss of consciousness status, initial encounter ([facility]) Procedures CT BRAIN WO IVCON CT HEAD/BRAIN W/O CONTRAST MATERIAL Sergio Sofia, ARCADE GAME TECHNICIAN.BOAT REPAIRER [address] [place] [id number] Imaging [facility] Referral ID Status Reason Start Date Expiration Date V isits Requested Visits Authorized [id number] Closed Auto-Generated Referral Patient Cleared - INN Insurance Found 01/20/2023 02/05/2024 1 1 Ordered Prescriptions (unrec ognized section and content) Prescription Sig Dispensed Refills Start Date End Da te polyethylene glycol (GLYCOLAX) 17 GM/SCOOP powder Take 17 g by mouth daily as needed (Constipation) 510 g 0 09/21/2020 10/21/2020 oxyCODONE-acetaminophen (PERCOCET) 5-325 MG per tabletIndications:Parapn eumonic effusion Take 1 tablet by mouth every 6 hours as needed for Pain for up to 7 days. Intended supply: 7 days. Take lowest dose possible to manage pain 28 tablet 0 09/21/2020 09/28/2020 metroNIDAZOLE (FLAGYL) 500 MG tablet Take 1 tablet by mouth 3 times daily for 13 days 39 tablet 0 09/21/2020 10/04/2020 apixaban (ELIQUIS) 2.5 MG TABS tablet Take 1 tablet by mouth 2 times daily 60 tablet 0 09/21/2020 10/21/2020 metroNIDAZOLE (FLAGYL) 500 MG tablet Take 1 tablet by mouth 3 times daily for 13 days 39 tablet 0 09/21/2020 09/21/2020 apixaban (ELIQUIS) 2.5 MG TABS tablet Take 1 tablet by mouth 2 times daily 60 tablet 0 09/21/2020 09/21/2020 polyethylene glycol (GLYCOLAX) 17 GM/SCOOP powder Take 17 g by mouth daily as needed (Constipation) 510 g 0 09/19/2020 09/21/2020 oxyCODONE-acetaminophen (PERCOCET) 5-325 MG per tabletIndications:Parapn eumonic effusion Take 1 tablet by mouth every 6 hours as needed for Pain for up to 7 days. Intended supply: 7 days. Take lowest dose possible to manage pain 28 tablet 0 09/19/2020 09/21/2020 (unrecognized sect ion and content) No Status Records FoundNo Status Records FoundNo Status Records FoundNo Status Records FoundNo Status Records Found INFORMATION SOURCE (unrecogn ized section and content) DATE CREATED AUTHOR 11/07/2020 [facility] DATE CREATED AUTHOR AUTHOR'S ORGANIZ ATION 01/20/2023 [facility] DATE CREATED AUTHOR AUTHOR'S ORGANIZ ATION 01/30/2023 [facility] DATE CREATED AUTHOR AUTHOR'S ORGANIZ ATION 07/05/2023 [facility] ([place]) DATE CREATED AUTHOR AUTHOR'S ORGANIZ ATION 02/22/2025 [facility] Goals (unrecognized section and content) Goals may be documented in a n alternate sectionGoals may be documented in an alternate sectionGoals may be documented in an alternate sectionGoals may be documented in an alternate sectionGoals may be documented in an alternate sectionGoals may be documented in an alternate sectionGoals may be documented in an alternate sectionGoals may be documented in an alternate sectionGoals may be documented in an alternate sectionGoals may be documented in an alternate sectionGoals may be documented in an alternate sectionGoals may be documented in an alternate sectionGoals may be documented in an alternate sectionGoals may be documented in an alternate sectionGoals may be documented in an alternate sectionGoals may be documented in an alternate sectionGoals may be documented in an alternate section Care Teams (unrecognized sec tion and content) Team Status: Active Member Role Status Dates Dr. Rosa Maria Santacruz MD Family Provider Active Dr. Rosa Maria Santacruz MD Primary Care Provider Active Team Status: Inactive Member Role Status Dates Dr. Rosa Maria Santacruz MD Primary Care Provider, Referrin g Provider Active Teresa Pop PA, PA Attending Provider Active Team Status: Inactive Member Role Status Dates Dr. Rosa Maria Santacruz MD Primary Care Provider Active Dr. Destin Cazares DO Attending Provider, Emergency Provide r Active Team Status: Inactive Member Role Status Dates Dr. Rosa Maria Santacruz MD Primary Care Prov ider, Attending Provider, Referring Provider Active Team Status: Inactive Member Role Status Dates Dr. Rosa Maria Santacruz MD Primary Care Provider Active Teresa ARITA, PA Attending Provider, Referr ing Provider Active Team Status: Active Member Role Status Dates Dr. Rosa Maria Santacruz MD Primary Care Provider Active Dr. Lupe Joe DO Emergency Provider Active Dr. Jakob Alexander DO Admit Provider, At tending Provider, Other Provider Active Team Status: Active Member Role Status Dates Dr. Rosa Maria Santacruz MD Primary Care Provider Active Dr. Lupe Joe DO Emergency Provider Active Dr. Jakob Alexander DO Admit Provider, Attending Provid er Active Team Status: Active Member Role Status Dates Dr. Rosa Maria Santacruz MD Primary Care Provider Active Dr. Odette Harman MD Attending Provider Active Team Status: Active Member Role Status Dates Dr. Rosa Maria Santacruz MD Primary Care Provider Active Dr. Lupe Joe DO Emergency Provider Active Dr. Jakob Alexander DO Admit Provider, Other Provider A ctive Dr. Sammie Castaneda MD Attending Provider, Other Provid er Active Team Status: Active Member Role Status Dates Dr. Rosa Maria Santacruz MD Primary Care Provider Active Dr. Lupe Joe DO Emergency Provider Active Dr. Jakob Alexander DO Admit Provider, Other Provider A ctive Dr. Sammie Castaneda MD Attending Provider, Other Provid er Active Dr. Kvng James MD Other Provider Active Team Status: Inactive Member Role Status Dates Dr. Rosa Maria Santacruz MD Primary Care Provider Active Dr. Lupe Joe DO Emergency Provider Active Dr. Jakob Alexander DO Admit Provider, Other Provider A ctive Dr. Sammie Castaneda MD Attending Provider Active Dr. Kvng James MD Other Provider Active Team Status: Active Member Role Status Dates Dr. Rosa Maria Santacruz MD Primary Care Provider Active Dr. Jesu Hale MD Admit Provider, Attending Provid er Active Dr. Kvng James MD Other Provider Active Dr. Socorro Oliveros MD Other Provider Active Team Status: Inactive Member Role Status Dates Dr. Rosa Maria Santacruz MD Primary Care Provider Active Dr. Jesu Hale MD Attending Provider Active Team Status: Active Member Role Status Dates Dr. Rosa Maria Santacruz MD Primary Care Provider Active Dr. Jesu Hale MD Admit Provider, Other Provider A ctive Dr. Kvng James MD Other Provider Active Dr. Socorro Oliveros MD Other Provider Active Dr. Irving Horowitz DO Attending Provider Active Team Status: Active Member Role Status Dates Dr. Rosa Maria Santacruz MD Primary Care Provider Active Dr. Irving Horowitz DO Attending Provider Active Team Status: Active Member Role Status Dates Dr. Rosa Maria Santacruz MD Primary Care Provider Active Dr. Jesu Hale MD Attending Provider, Referring Pr ovider Active Team Status: Inactive Member Role Status Dates Dr. Rosa Maria Santacruz MD Primary Care Provider, Referrin g Provider Active Dr. Irving Horowitz DO Attending Provider Active Team Status: Inactive Member Role Status Dates Dr. Rosa Maria Santacruz MD Primary Care Provider Active Dr. Jesu Hale MD Admit Provider, Attending Provid er Active Dr. Kvng James MD Other Provider Active Dr. Socorro Oliveros MD Other Provider Active Team Status: Inactive Member Role Status Dates Dr. Rosa Maria Santacruz MD Primary Care Provider Active Dr. Jesu Hale MD Attending Provider, Referring Pr ovider Active Team Status: Active Member Role Status Dates Dr. Rosa Maria Santacruz MD Primary Care Provider Active Paco ANTONIO MD Attending Provider Active Team Status: Inactive Member Role Status Dates Dr. Rosa Maria Santacruz MD Primary Care Provider Active Dr. Lupe Joe DO Emergency Provider Active Aquaculture Farmer Relationship Specialty Start Date End Date Elida Borges [address] [place] [id number] PCP - General Cardiology 11/29/14 Aquaculture Farmer Relationship Specialty Start Date End Date Elida Borges [address] [place] [id number] PCP - General Cardiology 11/29/14 Team Status: Active Member Role Status Dates Dr. Rosa Maria Santacruz MD Family Provider Active Dr. Paco Norman MD Primary Care Provider Active Team Status: Active Member Role Status Dates Dr. Rosa Maria Santacruz MD Primary Care Provider Active Dr. Jesu Hale MD Admit Provider, Re ferring Provider, Other Provider Active Dr. Kvng James MD Other Provider Active Dr. Socorro Oliveros MD Other Provider Active Dr. Irving Horowitz DO Attending Provider Active Team Status: Active Member Role Status Dates Dr. Rosa Maria Santacruz MD Primary Care Provider Active Dr. Irving Horowitz DO Attending Provider, Referring Provider Active Team Status: Inactive Member Role Status Dates Dr. Rosa Maria Santacruz MD Referring Provider Active Karey Jordan ENTERPRISE MANAGER, ENTERPRISE MANAGER-C Attending Provider Active Dr. Paco Norman MD Primary Care Provider Active Team Status: Inactive Member Role Status Dates Dr. Rosa Maria Santacruz MD Primary Care Provider Active Honey Enriquez ENTERPRISE MANAGER, ENTERPRISE MANAGER-C Attending Provider Active Team Status: Inactive Member Role Status Dates Dr. Paco Norman MD Primary Care Provider Active Honey Enriquez ENTERPRISE MANAGER, ENTERPRISE MANAGER-C Attending Provider Active Team Status: Inactive Member Role Status Dates Dr. Paco Norman MD Primary Care Provider, Atten ding Provider Active Team Status: Inactive Member Role Status Dates Dr. Rosa Maria Santacruz MD Primary Care Provider Active Dr. Lupe Joe DO Attending Provider, Emergency Pro vider Active Team Status: Active Member Role Status Dates Dr. Paco Norman MD Primary Care Provider Active Paco ANTONIO MD Attending Provider Active Team Status: Inactive Member Role Status Dates Dr. Paco Norman MD Primary Care P rovider, Attending Provider, Referring Provider Active Team Status: Inactive Member Role Status Dates Dr. Rosa Maria Santacruz MD Primary Care Provider Active Paco ANTONIO MD Attending Provider Active Team Status: Inactive Member Role Status Dates Dr. Paco Norman MD Primary Care Provider, Refer ring Provider Active Dr. Mathieu Mcintyre MD Attending Provider Active Team Status: Active Member Role Status Dates Dr. Paco Norman MD Primary Care Provider Active Paco ANTONIO MD Attending Provider, Referring Provider Active Team Status: Inactive Member Role Status Dates Dr. Paco Norman MD Primary Care Provider, Refer ring Provider Active Dr. Warren Sampson DPM Attending Provider Active Aquaculture Farmer Relationship Specialty Start Date End Date Elida Borges [address] [phone] PCP - General Cardiology 11/29/14 Team Status: Inactive Member Role Status Dates Dr. Paco Norman MD Referring Provider Active JUAN J Redmond Attending Provider Active Team Status: Active Member Role Status Dates Dr. Rosa Maria Santacruz MD Primary Care Provider Active Dr. Jakob Lim MD Attending Provider Active Team Status: Active Member Role Status Dates Dr. Paco Norman MD Primary Care Provider, Refer ring Provider Active Dr. Warren Sampson DPM Attending Provider Active Team Status: Inactive Member Role Status Dates JUAN J Redmond Attending Provider, Referring Provid er Active Dr. Rosa Maria Santacruz MD Primary Care Provider Active Team Status: Active Member Role Status Dates Dr. Rosa Maria Santacruz MD Primary Care Provider Active Dr. Jakob Lim MD Attending Provider Active JUAN J Redmond Referring Provider Active Team Status: Inactive Member Role Status Dates Dr. uLpe Joe DO Emergency Provider Active Dr. Rosa Maria Santacruz MD Primary Care Provider Active Team Status: Inactive Member Role Status Dates JUAN J Redmond Attending Provider Active Dr. Rosa Maria Santacruz MD Primary Care Provider, Referrin g Provider Active Team Status: Inactive Member Role Status Dates Dr. Lupe Joe DO Attending Provider, Emergency Pro vider Active Dr. Rosa Maria Santacruz MD Primary Care Provider Active Team Status: Active Member Role Status Dates Dr. Rosa Maria Santacruz MD Primary Care Provider Active Dr. Jakob Nowak DO Emergency Provider Active Dr. Oniel Moulton MD Admit Provider, Attending Provi khadra Active Team Status: Active Member Role Status Dates Dr. Rosa Maria Santacruz MD Primary Care Provider Active Dr. Jakob Nowak , DO Emergency Provider Active Dr. Oniel Moulton MD Admit Provider, A ttending Provider, Other Provider Active Dr. Lakshmi Carpenter MD Other Provider Active Dr. Kvng James MD Other Provider Active Team Status: Active Member Role Status Dates Dr. Rosa Maria Santacruz MD Primary Care Provider Active Dr. Jakob Nowak , DO Emergency Provider Active Dr. Oniel Moulton MD Admit Provider, Other Provider Active Dr. Lakshmi Carpenter MD Attending Provider, Other Provid er Active Dr. Kvng James MD Other Provider Active Team Status: Active Member Role Status Dates Dr. Rosa Maria Santacruz MD Primary Care Provider Active Dr. Jakob Nowak , DO Emergency Provider Active Dr. Oniel Moulton MD Admit Provider, Other Provider Active Dr. Lakshmi Carpentre MD Other Provider Active Dr. Kvng James MD Other Provider Active Dr. Priya Sheehan MD Attending Provider, Other Prov ider Active Dr. William Dawson MD Other Provider Active Dr. Robby Lai DO Other Provider Active Dr. Daniel Jimenez MD Other Provider Active Dr. Rufus Bruner MD Other Provider Active Tierney Menendez ENTERPRISE MANAGER, ENTERPRISE MANAGER-C Other Provider Active Team Status: Active Member Role Status Dates Dr. Rosa Maria Santacruz MD Primary Care Provider Active Dr. Jakob Nowak , DO Emergency Provider Active Dr. Oniel Moulton MD Admit Provider, Other Provider Active Dr. Lakshmi Carpenter MD Other Provider Active Dr. Kvng James MD Other Provider Active Dr. Priya Sheehan MD Other Provider Active Dr. William Dawson MD Attending Provider, Other Provid er Active Dr. Robby Lai , DO Other Provider Active Dr. Daniel Jimenez MD Other Provider Active Dr. Rufus Bruner MD Other Provider Active Tierney Menendez ENTERPRISE MANAGER, ENTERPRISE MANAGER-C Other Provider Active Team Status: Active Member Role Status Dates Dr. Rosa Maria Santacruz MD Primary Care Provider Active Dr. Jakob Nowak , DO Emergency Provider Active Dr. Oniel Moulton MD Admit Provider, Other Provider Active Dr. Lakshmi Carpenter MD Other Provider Active Dr. Kvng James MD Other Provider Active Dr. Priya Sheehan MD Other Provider Active Dr. William Dawson MD Other Provider Active Dr. Rboby Lai , DO Other Provider Active Dr. Daniel Jimenez MD Other Provider Active Dr. Rufus Bruner MD Other Provider Active Tierney Menendez ENTERPRISE MANAGER, ENTERPRISE MANAGER-C Other Provider Active Dr. Irving Horowitz , DO Attending Provider Active Team Status: Active Member Role Status Dates Dr. Rosa Maria Santacruz MD Primary Care Provider Active Dr. Jakob Nowak , DO Emergency Provider Active Dr. Oniel Moulton MD Admit Provider, Other Provider Active Dr. Lakshmi Carpenter MD Attending Provider, Other Provid er Active Dr. Kvng James MD Other Provider Active Dr. Priya Sheehan MD Other Provider Active Dr. William Dawson MD Other Provider Active Dr. Robby Lai , DO Other Provider Active Dr. Daniel Jimenez MD Other Provider Active Dr. Rufus Bruner MD Other Provider Active Tierney Menendez ENTERPRISE MANAGER, ENTERPRISE MANAGER-C Other Provider Active Team Status: Active Member Role Status Dates Dr. Rosa Maria Santacruz MD Primary Care Provider Active Dr. Jakob Nowak , DO Emergency Provider Active Dr. Oniel Moulton MD Admit Provider, Other Provider Active Dr. Lakshmi Carpenter MD Other Provider Active Dr. Kvng James MD Other Provider Active Dr. Priya Sheehan MD Other Provider Active Dr. William Dawson MD Other Provider Active Dr. Robby Lai , DO Attending Provider, Other Provide r Active Dr. Daniel Jimenez MD Other Provider Active Dr. Rufus Bruner MD Other Provider Active Tierney Menendez NP, ENTERPRISE MANAGER-C Other Provider Active Team Status: Inactive Member Role Status Dates Dr. Rosa Maria Santacruz MD Primary Care Provider Active Dr. Jakob Nowak , DO Emergency Provider Active Dr. Oniel Moulton MD Admit Provider, Other Provider Active Dr. Lakshmi Carpenter MD Other Provider Active Dr. Kvng James MD Other Provider Active Dr. Priya Sheehan MD Attending Provider Active Dr. William Dawson MD Other Provider Active Dr. Robby Lai , DO Other Provider Active Dr. Daniel Jimenez MD Other Provider Active Dr. Rufus Bruner MD Other Provider Active Tierney Menendez ENTERPRISE MANAGER, ENTERPRISE MANAGER-C Other Provider Active Team Status: Inactive Member Role Status Dates Dr. Mathieu Mcintyre MD Attending Provider Active Dr. Rosa Maria Santacruz MD Primary Care Provider, Referrin g Provider Active Team Status: Active Member Role Status Dates Dr. Rosa Maria Santacruz MD Primary Care Provider Active Dr. Jakob Nowak , DO Emergency Provider Active Dr. Oniel Moulton MD Admit Provider, Other Provider Active Dr. Lakshmi Carpenter MD Other Provider Active Dr. Kvng James MD Other Provider Active Dr. Priya Sheehan MD Referring Provider, Other Prov ider Active Dr. William Dawson MD Attending Provider, Other Provid er Active Dr. Robby Lai , DO Other Provider Active Dr. Daniel Jimenez MD Other Provider Active Dr. Rufus Bruner MD Other Provider Active Tierney Menendez ENTERPRISE MANAGER, ENTERPRISE MANAGER-C Other Provider Active Team Status: Active Member Role Status Dates Dr. Rosa Maria Santacruz MD Primary Care Provider Active Dr. Jakob Nowak , DO Emergency Provider Active Dr. Oniel Moulton MD Admit Provider, Other Provider Active Dr. Lakshmi Carpenter MD Other Provider Active Dr. Kvng James MD Other Provider Active Dr. Priya Sheehan MD Referring Provider, Other Prov ider Active Dr. William Dawson MD Other Provider Active Dr. Robby Lai , DO Other Provider Active Dr. Daniel Jimenez MD Other Provider Active Dr. Rufus Bruner MD Other Provider Active Tierney Menendez ENTERPRISE MANAGER, ENTERPRISE MANAGER-C Other Provider Active Dr. Irving Horowitz , DO Attending Provider Active Team Status: Active Member Role Status Dates Dr. Rosa Maria Santacruz MD Primary Care Provider Active Dr. Jakob Nowak , DO Emergency Provider Active Dr. Oniel Moulton MD Admit Provider, Other Provider Active Dr. Lakshmi Carpenter MD Other Provider Active Dr. Kvng James MD Other Provider Active Dr. Priya Sheehan MD Referring Provider, Other Prov ider Active Dr. William Dawson MD Other Provider Active Dr. Robby Lai , DO Attending Provider, Other Provide r Active Dr. Daniel Jimneez MD Other Provider Active Dr. Rufus Bruner MD Other Provider Active Tierney Menendez ENTERPRISE MANAGER, ENTERPRISE MANAGER-C Other Provider Active Team Status: Active Member Role Status Dates Dr. Rosa Maria Santacruz MD Primary Care Provider Active Dr. Mathieu Mcintyre MD Attending Provider, Referring Pro vider Active Team Status: Active Member Role Status Dates Dr. Paco Norman MD Referring Provider Active Dr. Warren Sampson DPM Attending Provider Active Dr. Rosa Maria Santacruz MD Primary Care Provider Active Team Status: Inactive Member Role Status Dates Dr. Rosa Maria Santacruz MD Primary Care Provider Active Dr. Singh Khanna MD Attending Provider Active Team Status: Active Member Role Status Dates Dr. Rosa Maria Santacruz MD Primary Care Provider Active Dr. Irving Horowitz DO Attending Provider Active Dr. Priya Sheehan MD Referring Provider Active Team Status: Inactive Member Role Status Dates Dr. Rosa Maria Santacruz MD Primary Care Provider, Referrin g Provider Active Dr. Mathieu Mcintyre MD Attending Provider Active Team Status: Inactive Member Role Status Dates Dr. Paco Norman MD Referring Provider Active Dr. Warren Sampson DPM Attending Provider Active Dr. Rosa Maria Santacruz MD Primary Care Provider Active Team Status: Active Member Role Status Dates Dr. Rosa Maria Santacruz MD Primary Care Provider Active Dr. Odette Harman MD Attending Provider, Referring Pr ovider Active Team Status: Inactive Member Role Status Dates Dr. Rosa Maria Santacruz MD Primary Care Provider Active Dr. Irving Horowitz DO Attending Provider, Referring Provider Active Team Status: Active Member Role Status Dates Dr. Rosa Maria Santacruz MD Primary Care Provider Active Dr. Priya Sheehan MD Attending Provider Active Dr. Odette Harman MD Referring Provider Active Team Status: Inactive Member Role Status Dates Dr. Rosa Maria Santacruz MD Primary Care Provider, Referrin g Provider Active Karey Jordan ENTERPRISE MANAGER, ENTERPRISE MANAGER-C Attending Provider Active Team Status: Inactive Member Role Status Dates Dr. Rosa Maria Santacruz MD Primary Care Provider Active Hans Armendariz MD Emergency Provider Active Team Status: Inactive Member Role Status Dates Dr. Rosa Maria Santacruz MD Primary Care Provider Active Start: September 14, 2024 End: September 14, 2024 Dr. Rosa Maria Santacruz MD Attending Provider Active Start: September 14, 2024 End: September 14, 2024 Dr. Rosa Maria Santacruz MD Referring Provider Active Start: September 14, 2024 End: September 14, 2024 Team Status: Active Member Role Status Dates Dr. Rosa Maria Santacruz MD Primary Care Provider Active Team Status: Inactive Member Role Status Dates Dr. Rosa Maria Santacruz MD Primary Care Provider Active Start: October 01, 2024 End: October 01, 2024 Dr. Rosa Maria Santacruz MD Referring Provider Active Start: October 01, 2024 End: October 01, 2024 JUAN J Guzman Attending Provider Active St art: October 01, 2024 End: October 01, 2024 Team Status: Inactive Member Role Status Dates Dr. Rosa Maria Santacruz MD Primary Care Provider Active Start: October 06, 2024 End: October 06, 2024 Dr. Singh Khanna MD Attending Provider Active Start: October 06, 2024 End: October 06, 2024 Dr. Singh Khanna MD Referring Provider Active Start: October 06, 2024 End: October 06, 2024 JUAN J Guzman Other Provider Active Start: October 06, 2024 End: October 06, 2024 Team Status: Active Member Role Status Dates Dr. Rosa Maria Santacruz MD Primary Care Provider Active Start: November 08, 2024 Dr. Mathieu Mcintyre MD Attending Provider Active S tart: November 08, 2024 Dr. Mathieu Mcintyre MD Referring Provider Active S tart: November 08, 2024 Dr. Oniel Moulton MD Other Provider Active Sta rt: November 08, 2024 Team Status: Inactive Member Role Status Dates Dr. Rosa Maria Santacruz MD Primary Care Provider Active Start: November 08, 2024 End: November 08, 2024 Dr. Rosa Maria Santacruz MD Referring Provider Active Start: November 08, 2024 End: November 08, 2024 Dr. Mathieu Mcintyre MD Attending Provider Active S tart: November 08, 2024 End: November 08, 2024 Team Status: Inactive Member Role Status Dates Dr. Rosa Maria Santacruz MD Primary Care Provider Active Start: November 08, 2024 End: November 08, 2024 Dr. Frederick Roberts MD Referring Provider Active Start: November 08, 2024 End: November 08, 2024 Dr. Frederick Roberts MD Emergency Provider Active Start: November 08, 2024 End: November 08, 2024 Team Status: Inactive Member Role Status Dates Dr. Rosa Maria Santacruz MD Primary Care Provider Active Start: November 08, 2024 End: November 08, 2024 Dr. Frederick Roberts MD Attending Provider Active Start: November 08, 2024 End: November 08, 2024 Dr. Frederick Roberts MD Referring Provider Active Start: November 08, 2024 End: November 08, 2024 Dr. Frederick Roberts MD Emergency Provider Active Start: November 08, 2024 End: November 08, 2024 Team Status: Inactive Member Role Status Dates Dr. Rosa Maria Santacruz MD Primary Care Provider Active Start: November 18, 2024 End: November 18, 2024 Dr. Singh Khanna MD Attending Provider Active Start: November 18, 2024 End: November 18, 2024 Dr. Singh Khanna MD Referring Provider Active Start: November 18, 2024 End: November 18, 2024 Team Status: Active Member Role Status Dates Dr. Jakob Jiménez MD Primary Care Provider Active Team Status: Inactive Member Role Status Dates Dr. Jakob Jiménez MD Primary Care Provider Active Start: November 29, 2024 End: November 29, 2024 Dr. Jakob Jiménez MD Attending Provider Active St art: November 29, 2024 End: November 29, 2024 Dr. Jakob Jiménez MD Referring Provider Active St art: November 29, 2024 End: November 29, 2024 Team Status: Inactive Member Role Status Dates Dr. Jakob Jiménez MD Primary Care Provider Active Start: December 06, 2024 End: December 06, 2024 Dr. Jakob Jiménez MD Attending Provider Active St art: December 06, 2024 End: December 06, 2024 Dr. Jakob Jiménez MD Referring Provider Active St art: December 06, 2024 End: December 06, 2024 Team Status: Inactive Member Role Status Dates Dr. Rosa Maria Santacruz MD Referring Provider Active Start: December 10, 2024 End: December 10, 2024 Dr. Forrest Umaña MD Attending Provider Active Start: December 10, 2024 End: December 10, 2024 Dr. Jakob Jiménez MD Primary Care Provider Active Start: December 10, 2024 End: December 10, 2024 Team Status: Active Member Role/Relationship Status Dates Dr. Jakob Jiménez MD Primary Care Provider Active Team Status: Inactive Member Role/Relationship Status Dates Dr. Rosa Maria Santacruz MD Primary Care Provider Active Start: September 14, 2024 End: September 14, 2024 Dr. Rosa Maria Santacruz MD Attending Provider Active Start: September 14, 2024 End: September 14, 2024 Dr. Rosa Maria Santacruz MD Referring Provider Active Start: September 14, 2024 End: September 14, 2024 Team Status: Inactive Member Role/Relationship Status Dates Dr. Rosa Maria Santacruz MD Primary Care Provider Active Start: October 01, 2024 End: October 01, 2024 Dr. Rosa Maria Santacruz MD Referring Provider Active Start: October 01, 2024 End: October 01, 2024 JUAN J Guzman Attending Provider Active St art: October 01, 2024 End: October 01, 2024 Team Status: Inactive Member Role/Relationship Status Dates Dr. Rosa Maria Santacruz MD Primary Care Provider Active Start: October 06, 2024 End: October 06, 2024 Dr. Singh Khanna MD Attending Provider Active Start: October 06, 2024 End: October 06, 2024 Dr. Singh Khanna MD Referring Provider Active Start: October 06, 2024 End: October 06, 2024 JUAN J Guzman Other Provider Active Start: October 06, 2024 End: October 06, 2024 Team Status: Active Member Role/Relationship Status Dates Dr. Rosa Maria Santacruz MD Primary Care Provider Active Start: November 08, 2024 Dr. Mtahieu Mcintyre MD Attending Provider Active S tart: November 08, 2024 Dr. Mathieu Mcintyre MD Referring Provider Active S tart: November 08, 2024 Dr. Oniel Moulton MD Other Provider Active Sta rt: November 08, 2024 Team Status: Inactive Member Role/Relationship Status Dates Dr. Rosa Maria Santacruz MD Primary Care Provider Active Start: November 08, 2024 End: November 08, 2024 Dr. Rosa Maria Santacruz MD Referring Provider Active Start: November 08, 2024 End: November 08, 2024 Dr. Mathieu Mcintyre MD Attending Provider Active S tart: November 08, 2024 End: November 08, 2024 Team Status: Inactive Member Role/Relationship Status Dates Dr. Rosa Maria Santacruz MD Primary Care Provider Active Start: November 08, 2024 End: November 08, 2024 Dr. Frederick Roberts MD Attending Provider Active Start: November 08, 2024 End: November 08, 2024 Dr. Frederick Roberts MD Referring Provider Active Start: November 08, 2024 End: November 08, 2024 Dr. Frederick Roberts MD Emergency Provider Active Start: November 08, 2024 End: November 08, 2024 Team Status: Inactive Member Role/Relationship Status Dates Dr. Rosa Maria Santacruz MD Primary Care Provider Active Start: November 18, 2024 End: November 18, 2024 Dr. Singh Khanna MD Attending Provider Active Start: November 18, 2024 End: November 18, 2024 Dr. Singh Khanna MD Referring Provider Active Start: November 18, 2024 End: November 18, 2024 Team Status: Inactive Member Role/Relationship Status Dates Dr. Jakob Jiménez MD Primary Care Provider Active Start: November 29, 2024 End: November 29, 2024 Dr. Jakob Jiménez MD Attending Provider Active St art: November 29, 2024 End: November 29, 2024 Dr. Jakob Jiménez MD Referring Provider Active St art: November 29, 2024 End: November 29, 2024 Team Status: Inactive Member Role/Relationship Status Dates Dr. Jakob Jiménez MD Primary Care Provider Active Start: December 06, 2024 End: December 06, 2024 Dr. Jakob Jiménez MD Attending Provider Active St art: December 06, 2024 End: December 06, 2024 Dr. Jakob Jiménez MD Referring Provider Active St art: December 06, 2024 End: December 06, 2024 Team Status: Inactive Member Role/Relationship Status Dates Dr. Rosa Maria Santacruz MD Referring Provider Active Start: December 10, 2024 End: December 10, 2024 Dr. Forrest Umaña MD Attending Provider Active Start: December 10, 2024 End: December 10, 2024 Dr. Jakob Jiménez MD Primary Care Provider Active Start: December 10, 2024 End: December 10, 2024 Team Status: Active Member Role/Relationship Status Dates Dr. Jakob Jiménez MD Primary Care Provider Active Start: December 16, 2024 End: December 16, 2024 Dr. Raquel Luevano MD Attending Provider Activ e Start: December 16, 2024 End: December 16, 2024 Dr. Forrest Umaña MD Referring Provider Active Start: December 16, 2024 End: December 16, 2024 Team Status: Inactive Member Role/Relationship Status Dates Dr. Jakob Jiménez MD Primary Care Provider Active Start: December 27, 2024 End: December 27, 2024 Dr. Forrest Umaña MD Attending Provider Active Start: December 27, 2024 End: December 27, 2024 Dr. Forrest Umaña MD Referring Provider Active Start: December 27, 2024 End: December 27, 2024 Team Status: Active Member Role/Relationship Status Dates Dr. Jakob Jiménez MD Primary Care Provider Active Start: December 27, 2024 Dr. Forrest Umaña MD Attending Provider Active Start: December 27, 2024 Dr. Forrest Umaña MD Referring Provider Active Start: December 27, 2024 Dr. Forrest Umaña MD Other Provider Active Start: December 27, 2024 Team Status: Active Member Role/Relationship Status Dates Dr. Rosa Maria Santacruz MD Primary Care Provider Active Start: November 08, 2024 Dr. Mathieu Mcintyre MD Attending Provider Active S tart: November 08, 2024 Dr. Mathieu Mcintyre MD Referring Provider Active S tart: November 08, 2024 Dr. Oniel Moulton MD Other Provider Active Sta rt: November 08, 2024 Team Status: Inactive Member Role/Relationship Status Dates Dr. Rosa Maria Santacruz MD Primary Care Provider Active Start: November 08, 2024 End: November 08, 2024 Dr. Rosa Maria Santacruz MD Referring Provider Active Start: November 08, 2024 End: November 08, 2024 Dr. Mathieu Mcintyre MD Attending Provider Active S tart: November 08, 2024 End: November 08, 2024 Team Status: Inactive Member Role/Relationship Status Dates Dr. Rosa Maria Santacruz MD Primary Care Provider Active Start: November 08, 2024 End: November 08, 2024 Dr. Frederick Roberts MD Attending Provider Active Start: November 08, 2024 End: November 08, 2024 Dr. Frederick Roberts MD Referring Provider Active Start: November 08, 2024 End: November 08, 2024 Dr. Frederick Roberts MD Emergency Provider Active Start: November 08, 2024 End: November 08, 2024 Team Status: Inactive Member Role/Relationship Status Dates Dr. Rosa Maria Santacruz MD Primary Care Provider Active Start: November 18, 2024 End: November 18, 2024 Dr. Singh Khanna MD Attending Provider Active Start: November 18, 2024 End: November 18, 2024 Dr. Singh Khanna MD Referring Provider Active Start: November 18, 2024 End: November 18, 2024 Team Status: Inactive Member Role/Relationship Status Dates Dr. Jakob Jiménez MD Primary Care Provider Active Start: November 29, 2024 End: November 29, 2024 Dr. Jakob Jiménez MD Attending Provider Active St art: November 29, 2024 End: November 29, 2024 Dr. Jakob Jiménez MD Referring Provider Active St art: November 29, 2024 End: November 29, 2024 Team Status: Inactive Member Role/Relationship Status Dates Dr. Jakob Jiménez MD Primary Care Provider Active Start: December 06, 2024 End: December 06, 2024 Dr. Jakob Jiménez MD Attending Provider Active St art: December 06, 2024 End: December 06, 2024 Dr. Jakob Jiménez MD Referring Provider Active St art: December 06, 2024 End: December 06, 2024 Team Status: Inactive Member Role/Relationship Status Dates Dr. Rosa Maria Santacruz MD Referring Provider Active Start: December 10, 2024 End: December 10, 2024 Dr. Forrest Umaña MD Attending Provider Active Start: December 10, 2024 End: December 10, 2024 Dr. Jakob Jiménez MD Primary Care Provider Active Start: December 10, 2024 End: December 10, 2024 Team Status: Active Member Role/Relationship Status Dates Dr. Jakob Jiménez MD Primary Care Provider Active Start: December 16, 2024 End: December 16, 2024 Dr. Raquel Luevano MD Attending Provider Activ e Start: December 16, 2024 End: December 16, 2024 Dr. Forrest Umaña MD Referring Provider Active Start: December 16, 2024 End: December 16, 2024 Team Status: Inactive Member Role/Relationship Status Dates Dr. Jakob Jiménez MD Primary Care Provider Active Start: December 27, 2024 End: December 27, 2024 Dr. Forrest Umaña MD Attending Provider Active Start: December 27, 2024 End: December 27, 2024 Dr. Forrest Umaña MD Referring Provider Active Start: December 27, 2024 End: December 27, 2024 Team Status: Active Member Role/Relationship Status Dates Dr. Jakob Jiménez MD Primary Care Provider Active Start: December 27, 2024 Dr. Forrest Umaña MD Attending Provider Active Start: December 27, 2024 Dr. Forrest Umaña MD Referring Provider Active Start: December 27, 2024 Dr. Forrest Umaña MD Other Provider Active Start: December 27, 2024 Team Status: Inactive Member Role/Relationship Status Dates Dr. Jakob Jiménez MD Primary Care Provider Active Start: February 15, 2025 End: February 15, 2025 Dr. Jakob Jiménez MD Attending Provider Active St art: February 15, 2025 End: February 15, 2025 Dr. Jakob Jiménez MD Referring Provider Active St art: February 15, 2025 End: February 15, 2025 Dr. Singh Khanna MD Other Provider Active St art: February 15, 2025 End: February 15, 2025 Source Comments (unrecognize d section and content) In the event this informatio n is protected by the Federal Confidentiality of Alcohol and Drug Abuse Patient Records regulations: The Federal rules restrict any use of the information to criminally investigate or prosecute any alcohol or drug abuse patient.[facility] the event this information is protected by the Federal Confidentiality of Alcohol and Drug Abuse Patient Records regulations: The Federal rules restrict any use of the information to criminally investigate or prosecute any alcohol or drug abuse patient.[facility] the event this information is protected by the Federal Confidentiality of Alcohol and Drug Abuse Patient Records regulations: The Federal rules restrict any use of the information to criminally investigate or prosecute any alcohol or drug abuse patient.[facility] FOR RECORDS PERTAINING TO PATIENTS WHO ARE OR HAVE BEEN ENROLLED IN A CHEMICAL DEPENDENCY/SUBSTANCEABUSE PROGRAM, SOME INFORMATION MAY BE OMITTED. This clinical summary was aggregated from multiple sources. Caution should be exercised in using it in the provision of clinical care. This summary normalizes information from multiple sources, and as a consequence, information in this document may materially change the coding, format and clinical context of patient data. In addition, data may be omitted in some cases. CLINICAL DECISIONS SHOULD BE BASED ON THE PRIMARY CLINICAL RECORDS. [facility] [email or web address] [facility]. provides no warranty or guarantee of the accuracy or completeness of information in this document.
--- NOTE | 2025-02-23 08:50 | OP.PCM_ITS ---
Operative Report (Standard) Operative Information Date of Procedure: 02/23/25 Pre-Operative Diagnosis: Mesenteric stenosis with chronic mesenteric ischemia Post-Operative Diagnosis: Same Surgery/Procedure Performed: 1. Ultrasound-guided access retrograde right common femoral artery. 2. Aortogram with selective SMA angiogram. 3. Preballoon with a 4 mm balloon and stent with a 6 x 18 express SD and postpone with a 7 x 4 balloon. 4. Closure with Mynx flatwork finisher hand: No Type of Anesthesia: IV Sedation Procedure Start Time: 07:45 Procedure Stop Time: 08:30 Select all DRAINS/GRAFTS/IMPLANTS that apply: None Estimated Blood Loss: Minimal Specimen collected: No Description of surgery: Patient brought to the Allocation Analyst. Underwent appropriate consent. Underwent sedation. Is prepped and draped in a sterile fashion. We did ultrasound access retrograde right common femoral artery. Give 5000 units of heparin. Put on a 6 Vincentian sheath. Using a Maurice catheter and then a Tadeo 4 selected out the SMA showed a severe stenosis. We brought in the ZARAGOZA guide and then switched to a 018 wire. We Lula balloon through the area show in the severe stenosis with a 4 mm balloon then brought in a 6 x 18 stent just to the previous stent and jus t to the origin of the SMA. We then post balloon with a 7 x 4 balloon and was markedly improved afterwards with brisk flow through this entire area. Removed out the guide and then deployed a minx with good hemostasis. Patient was brought to recovery in stable condition. Sedation: This 84-year-old gentleman underwent moderate sedation given by Dr. Singh Khanna. He was monitored by the IV sedation nurse. He was given fentanyl, Versed and heparin. He was monitored EKG blood pressure and pulse ox for over the 45 minutes of the procedure. See the MAR for complete record. Surgical Findings: SMA stenosis, improved after stent Complications Complications: No Admit VTE Documentation VTE Present on Admission: No
== END 2025-02-23 12:50 | disposition home or self-care (01) ==
PROVIDERS: PCP Family Medicine; Referring Provider Surgery Vascular Surgery; Visit Provider Surgery Vascular Surgery
DX: K55.1 Chronic vascular disorders of intestine (principal); I77.1 Stricture of artery; I11.9 Hypertensive heart disease without heart failure; E78.00 Pure hypercholesterolemia, unspecified; Z95.1 Presence of aortocoronary bypass graft; Z79.82 Long term (current) use of aspirin; Z79.890 Hormone replacement therapy; Z79.899 Other long term (current) drug therapy; Z87.891 Personal history of nicotine dependence
CPT/HCPCS: 36200; 36245; 37236; 75625; 75726; 76937; 99152; 99153; C1725; C1760; C1769; C1894; Q9967; C1876; C1887

== ENCOUNTER 2025-04-26 12:30 | Inpatient (IN) | payer MEDICARE, OTHER, SELFPAY ==
[2025-04-26] VITALS (14 sets, daily range): BP systolic 144–168; BP diastolic 57–74; PULSE 81–104; RESP 17–25; TEMP 36.2–36.8; O2SAT 87–98; BMI 26.8; BMI 26.1
--- NOTE | 2025-04-26 12:42 | ED.VIS.DYS ---
HPI History of Present Illness Chief Complaint: Shortness of Breath Informant: patient and EMS Narrative Narrative: Patient is an 84-year-old male with a history of CABG presenting to the ED with dyspnea and chest discomfort. - Dyspnea began yesterday morning upon waking; initially managed by sitting in a chair. - Woke up at 0300 today with worsening dyspnea, feeling exhausted after walking to the bathroom. - Denies cough, fevers, abdominal pain, emesis, or diarrhea. - Reports chest discomfort described as a very weak ache across the front of the chest between the armpits, lasting approximately the last 4 hours. - Denies changes in chronic leg swelling. - History of open heart bypass surgery; denies known CHF. 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 Borges, now Dr. Rausch. - Takes baby aspirin once a week, no 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; recent medication changes include discontinuation of balsalazide, a blood pressure medication, and amiodarone. - Received a breathing treatment from EMS, which provided slight improvement. [facility] Medical History (Updated 04/26/25 @ 13:[address] Frederick Roberts MD) Kidney disease History of Holter monitoring H/O transesophageal echocardiography (ROSI) for monitoring Multiple excoriations Anemia Pulmonary hypertension Severe sinus bradycardia CKD (chronic kidney disease) stage 3, GFR 30-59 ml/min General weakness Debility Hyperkalemia Palpitations History of edema Elevated troponin Fever Mitral valve insufficiency PAD (peripheral artery disease) Pancytopenia History of right inguinal hernia History of umbilical hernia Wears hearing aid Wears glasses Alcohol use Thyroid disease Walker as ambulation aid High cholesterol Injury of head and neck Dietary restriction History of GI bleed Hx of ulcerative colitis History of stress test History of echocardiogram History of transesophageal echocardiography (ROSI) Cardiology follow-up encounter History of atrial fibrillation Emphysema of lung Hyperlipidemia Hypertension Atrial fibrillation Hypertension Former smoker History of cardioversion (~05/09/20) Subclavian artery stenosis, left (~10/15/19) Essential hypertension Thrombocytopenia Upper GI bleed Atherosclerotic heart disease of [place] coronary artery without angina pectoris Premature atrial contractions Atrial 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 Hematemesis/vomiting blood Upper GI bleed History of coronary artery disease Thrombocytopenia Ulcerative colitis Right carotid bruit Hypercholesterolemia Home Medications ?Medication ?Instructions ?Recorded ?Last Taken ?Type ferrous sulfate 325 mg (65 mg 325 mg PO DAILY vitamin 05/28/15 12/26/24 History iron) tablet vitamin B complex 1 each PO DAILY vitamin 02/07/16 12/26/24 History aspirin 81 mg tablet,delayed 81 mg PO MO 04/14/23 12/20/24 History release zinc acetate 50 mg (zinc) capsule 50 mg PO DAILY 09/29/23 12/26/24 History atorvastatin 40 mg tablet (Lipitor) 40 mg PO DAILY cholesterol #90 tabs 03/08/24 12/26/24 Rx lisinopril 20 mg tablet 20 mg PO DAILY #90 tabs 07/16/24 Unknown Rx Held on 11/08/24. Instructions: Order Changed furosemide 20 mg tablet (Lasix) 20 mg PO QAM short term d/t 12/10/24 12/24/24 History potassium oxycodone 5 mg tablet 5 - 10 mg (1 - 2 x 5 mg) PO Q4H 12/27/24 Unknown Rx PRN PRN Pain Score 4-10 5 days #10 tabs hydralazine 50 mg tablet 100 mg (2 x 50 mg) PO BID #360 tabs 02/18/25 02/23/25 Rx amlodipine 10 mg tablet 10 mg PO DAILY #90 tabs 03/14/25 Unknown Rx Allergy/AdvReac Type Severity Reaction Status Date / Time hydrochlorothiazide Allergy Severe Rash Verified 03/03/25 11:46 furosemide (From Lasix) Allergy Severe Verified 03/03/25 11:46 Rash Itchy lovastatin (From Mevacor) Allergy Rash Verified 03/03/25 11:46 Family History Father CAD (coronary artery disease) Mother Cancer breast Surgical History S/P umbilical hernia repair, follow-up exam S/P right inguinal hernia repair History of umbilical hernia repair History of right inguinal hernia repair Hx of colonoscopy History of cardiac catheterization Hx of heart bypass surgery Hx of esophagogastroduodenoscopy Hx of CABG History of hand surgery History of vasectomy Aortocoronary bypass status (~02/12/17) Status post insertion of drug-eluting stent into right coronary artery for coronary artery disease (~04/2009) Social History adopted: No household members: spouse housing: house number of children: 2 current occupational status: retired Smoking Status: Former smoker Tobacco: How many years used: 50 (stopped about 10 yrs ago) how long ago did patient quit smokin years ago alcohol intake: current alcohol intake frequency: 3 or more drinks per day Alcohol type: beer, wine and hard liquor substance use type: does not use caffeine: Yes Type: coffee Number of servings: 2 ROS ROS ED Constitutional Constitutional ED: Reports fatigue; Denies chills or fever(s) Eyes Eyes: Denies change in vision or diplopia ENT ENT ED: Denies rhinorrhea or sore throat Cardiovascular Cardiovascular: Reports chest pain, leg edema and orthopnea; Denies palpitations, radiating jaw, neck or arm pain or syncope Respiratory/Chest Respiratory/Chest: Reports dyspnea, dyspnea on exertion and orthopnea; Denies cough Gastrointestinal Gastrointestinal: Denies abdominal pain, diarrhea, nausea or vomiting Genitourinary Genitourinary ED: Denies dysuria or hematuria Musculoskeletal Musculoskeletal: Denies back pain or neck pain Integumentary Denies abscess or rash Neurologic Neurologic: Denies headache(s), paresthesias or weakness Psychiatric Psychiatric: Denies suicidal thoughts EXAM Physical Exam Const Vital Signs: 04/26/25 12:33 04/26/25 12:39 04/26/25 12:44 Temperature 97.1 F L Temperature Source Axillary Pulse Rate 104 H Respiratory Rate 25 H Respiratory Effort Respiratory Pattern Blood Pressure 168/67 H Blood Pressure Mean 100 Pulse Ox 95 98 96 Oxygen Delivery Method High Flow High Flow Nasal Cannula Oxygen Flow Rate (L/min) 10 8 8 04/26/25 12:49 04/26/25 13:28 Temperature Temperature Source Pulse Rate 81 Respiratory Rate Respiratory Effort Short of Breath Respiratory Pattern Tachypnea Blood Pressure 156/57 H Blood Pressure Mean 90 Pulse Ox Oxygen Delivery Method High Flow Oxygen Flow Rate (L/min) 8 Positive well nourished and well developed General Appearance ED: well developed and NAD HEENT Reports moist mucous membranes normocephalic and atraumatic Eyes PERRL and EOMs intact bilaterally Neck full ROM, supple and no JVD Resp Resp Narrative: Tachypneic mild respiratory distress, diffuse expiratory wheezes, diminished at the bases possibly some rhonchi difficult to tell. Symmetric bilaterally trachea midline. Cardio regular rate and regular rhythm Cardio Narrative: Faint heart sounds GI non-tender and non-distended Auscultation: normoactive bowel sounds Palpation: soft Back/Spine no CVA tenderness General Back: other FROM Extremity normal to inspection General Extremety ED: Yes edema; Negative for pulses abnormal or tenderness General Extremity: edema bilateral lower extremity Details: moderate (With symmetric changes of chronic stasis dermatitis nothing that looks acute or tender.); Negative for pulses abnormal Neuro oriented x3, CN's II-XII intact bilaterally and no sensory deficits noted Sensorium / Orientation: awake and alert Motor Exam: strength 5/5 throughout Skin no rashes or lesions noted and no wounds MDM MDM MDM Narrative Medical decision making narrative: Assessment: The patient is a 84-year-old male with PMH of prior CABG, severe pulmonary hypertension, and chronic kidney disease presenting for acute dyspnea and profound hypoxemia. Chest x-ray shows mild pulmonary edema with cardiomegaly, proBNP is markedly elevated at 18,000, and troponin is mildly elevated at 84 but attributed to strain hypoxemia rather than acute coronary syndrome. These findings, along with his response to IV Lasix and need for high-flow oxygen, support the working diagnosis of acute decompensated congestive heart failure leading to acute hypoxic respiratory failure. Plan: - High-flow oxygen therapy initiated; monitoring for need for mechanical ventilation - Lasix 40 mg IV administered in ED - Admit for continued diuresis, trending of troponin, and management of acute decompensated CHF given outpatient hypoxemia and living situation without home oxygen Diagnostics: - Chest x-ray 1-view: mild pulmonary edema and cardiomegaly - Labs: troponin 84 ng/L, elevated; proBNP 18,000 pg/mL, markedly elevated - Prior echo 11/29/2022: LVEF 60%, severely enlarged left atrium, 1+ mitral insufficiency, 2+ tricuspid insufficiency, severe pulmonary hypertension Reevaluations: - Breathing improved on high-flow oxygen post-Lasix; no immediate need for intubation or NIV at this time History & Record Review Additional record(s) reviewed:: Prior outpatient record Lab Data Attestation: I reviewed the patient's lab results. Labs: Laboratory Results - last 24 hr 04/26/25 12:32 WBC 9.8 RBC 3.14 L Hgb 10.9 L Hct 33.1 L MCV 105.4 H MCH 34.7 H MCHC 32.9 RDW Std Deviation 53.0 H RDW Coeff of Chanel 13.7 Plt Count 164 MPV 9.9 Immature Gran % (Auto) 0.400 Neut % (Auto) 75.8 H Lymph % (Auto) 12.4 L [place] % (Auto) 10.6 H Eos % (Auto) 0.4 Baso % (Auto) 0.4 Absolute Neuts (auto) 7.4 Absolute Lymphs (auto) 1.21 Nucleated RBC % 0 Sodium 141 Potassium 4.4 Chloride 107 Carbon Dioxide 20.1 L Anion Gap 14 BUN 52 H Creatinine 2.47 H Estim Creat Clear Calc 24.13 L Est GFR (MDRD) Non-Af 25 L BUN/Creatinine Ratio 21.1 H Glucose 189 H Calcium 8.9 Troponin T High Sens 84 H* [place] [address] H Radiography Diagnostic Testing: Clinical Impression(s) from Imaging Studies Chest X-Ray 04/26/25 12:50 IMPRESSION: Cardiac enlargement. Interstitial edema. Scant pleural fluid. Reading Location: [facility] Rhythm Strip Rhythm Strip: Sinus Tach Rate: 112 Ectopy: PVC(s) EKG Initial EKG: Attestation: I personally reviewed and interpreted this EKG as follows: Interpretation: Sinus Rhythm (94), No Acute Injury Pattern and Non-Specific ST Changes Comments: Old inferior and septal infarcts Prior EKG tracings: available for review Prior: Unchanged Management Discussion w/another healthcare provider: Hospitalist Discharge Plan Dx/Rx/DC Orders Clinical Impression: Acute hypoxemic respiratory failure, Acute combined systolic (congestive) and diastolic (congestive) heart failure, Other secondary pulmonary hypertension, CKD (chronic kidney disease), Chest pain Disposition Disposition: Acute Care [facility]
[2025-04-26 12:49] LABS: Hematocrit 33.1 % (40-54); Hemoglobin 10.9 g/dL (13.0-16.5); Immature Granulocytes Count 0.040 X10^3/uL (0.0-0.0); Mean Corp Hgb Conc 32.9 g/dL (32-36); Mean Corpuscular Volume 105.4 fL (80-94); Mean Platelet Vol. 9.9 fl (6.2-12.0); NRBC Flagged by Analyzer 0 % (0-5); Platelet Count 164 K/mm3 (150-450); RBC Distribution Width CV 13.7 % (11.6-14.6); RBC Distribution Width SD 53.0 fl (35.1-43.9); Red Blood Count 3.14 M/mm3 (4.6-6.2); White Blood Count 9.8 K/mm3 (4.4-11.0)
--- NOTE | 2025-04-26 12:50 | RAD_ITS ---
PROCEDURE: RAD/Chest 1 View (Portable)
[2025-04-26 13:09] LABS: Anion Gap 14 (5-15); BUN 52 mg/dL (4-19); BUN/Creat Ratio 21.1 RATIO (10-20); Calcium,Total 8.9 mg/dL (7.6-11.0); Carbon Dioxide 20.1 mmol/L (21.0-32.0); Chloride 107 mmol/L (98-108); Estimated Creatinine Clearance 24.13 ml/min (50-250); Glucose 189 mg/dL (70-99); Potassium 4.4 mmol/L (3.3-5.1)
[2025-04-26 13:11] LABS: Pro- Brain NATRIURETIC PEPTIDE 17939 pg/mL (<=1800); Troponin T High Sensitivity 84 ng/L (<=22)
--- NOTE | 2025-04-26 13:44 | PCM.HP.STD ---
HPI - General General Date of Admission: 04/26/25 Date of Service: 04/26/25 Chief Complaint: Shortness of breath HPI Narrative EULOGIO NOGUERA, is a 84 M who presented to [facility] ED on 04/26/2025 with shortness of breath. Medical history significant for CAD with stenting and CABG x 2, CKD stage IV, chronic mesenteric ischemia s/p SMA stenting, paroxysmal A-fib not on anticoagulation secondary to history of acute blood loss anemia and iron deficiency anemia, ulcerative colitis, and chronic debility. Patient lives at home alone, has decent functional status at baseline. His has lived at [place] for the past few years and he is able to drive there frequently to visit her. He reports shortness of breath upon waking up yesterday. He felt somewhat improved sitting up in the chair but remained fatigued all day yesterday and had some mild chest discomfort with exertion. This morning when he woke up, he had worsening dyspnea and felt exhausted walking to the bathroom so he came in for further evaluation. In the ED he was hypoxic requiring high flow 10 L nasal cannula to maintain appropriate oxygen saturations. He otherwise was hypertensive to the 160s systolic and had mild sinus tachycardia to the 100s. Chest x-ray showed cardiac enlargement and interstitial edema, no pleural effusions. BNP greater than 17,000. Initial troponin 88. CBC and BMP benign. Patient was given a dose of IV Bumex and hospitalist was contacted for admission. I saw the patient at bedside in the ED. Patient was fatigued appearing but otherwise sitting back comfortably in bed, breathing comfortably on high flow nasal cannula, conversing normally, in no acute distress. Notes that he feels moderately improved from a shortness of breath standpoint on supplemental oxygen. He denies any recent illnesses or sick contacts that he is aware of. Was in his normal state of health as of 2 days ago. Denies any lower extremity swelling. No other acute concerns currently. Will be admitted for further management. [facility] Medical History (Updated 04/26/25 @ 14:[address] Deandre Araujo, ) Kidney disease History of Holter monitoring H/O transesophageal echocardiography (ROSI) for monitoring Multiple excoriations Anemia Pulmonary hypertension Severe sinus bradycardia CKD (chronic kidney disease) stage 3, GFR 30-59 ml/min General weakness Debility Hyperkalemia Palpitations History of edema Elevated troponin Fever Mitral valve insufficiency PAD (peripheral artery disease) Pancytopenia History of right inguinal hernia History of umbilical hernia Wears hearing aid Wears glasses Alcohol use Thyroid disease Walker as ambulation aid High cholesterol Injury of head and neck Dietary restriction History of GI bleed Hx of ulcerative colitis History of stress test History of echocardiogram History of transesophageal echocardiography (ROSI) Cardiology follow-up encounter History of atrial fibrillation Emphysema of lung Hyperlipidemia Hypertension Atrial fibrillation Hypertension Former smoker History of cardioversion (~05/09/20) Subclavian artery stenosis, left (~10/15/19) Essential hypertension Thrombocytopenia Upper GI bleed Atherosclerotic heart disease of [place] coronary artery without angina pectoris Premature atrial contractions Atrial fibrillation and flutter assisted (current) use 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 Hematemesis/vomiting blood Upper GI bleed History of coronary artery disease Thrombocytopenia Ulcerative colitis Right carotid bruit Hypercholesterolemia Home Medications ?Medication ?Instructions ?Recorded ?Last Taken ?Type ferrous sulfate 325 mg (65 mg 325 mg PO DAILY vitamin 05/28/15 12/26/24 History iron) tablet vitamin B complex 1 each PO DAILY vitamin 02/07/16 12/26/24 History aspirin 81 mg tablet,delayed 81 mg PO MO 04/14/23 12/20/24 History release zinc acetate 50 mg (zinc) capsule 50 mg PO DAILY 09/29/23 12/26/24 History atorvastatin 40 mg tablet (Lipitor) 40 mg PO DAILY cholesterol #90 tabs 03/08/24 12/26/24 Rx lisinopril 20 mg tablet 20 mg PO DAILY #90 tabs 07/16/24 Unknown Rx Held on 11/08/24. Instructions: Order Changed furosemide 20 mg tablet (Lasix) 20 mg PO QAM short term d/t 12/10/24 12/24/24 History potassium oxycodone 5 mg tablet 5 - 10 mg (1 - 2 x 5 mg) PO Q4H 12/27/24 Unknown Rx PRN PRN Pain Score 4-10 5 days #10 tabs hydralazine 50 mg tablet 100 mg (2 x 50 mg) PO BID #360 tabs 02/18/25 02/23/25 Rx amlodipine 10 mg tablet 10 mg PO DAILY #90 tabs 03/14/25 Unknown Rx Allergy/AdvReac Type Severity Reaction Status Date / Time hydrochlorothiazide Allergy Severe Rash Verified 03/03/25 11:46 furosemide (From Lasix) Allergy Severe Verified 03/03/25 11:46 Rash Itchy lovastatin (From Mevacor) Allergy Rash Verified 03/03/25 11:46 Family History Father CAD (coronary artery disease) Mother Cancer breast Surgical History S/P umbilical hernia repair, follow-up exam S/P right inguinal hernia repair History of umbilical hernia repair History of right inguinal hernia repair Hx of colonoscopy History of cardiac catheterization Hx of heart bypass surgery Hx of esophagogastroduodenoscopy Hx of CABG History of hand surgery History of vasectomy Aortocoronary bypass status (~02/12/17) Status post insertion of drug-eluting stent into right coronary artery for coronary artery disease (~04/2009) Social History adopted: No household members: spouse housing: house number of children: 2 current occupational status: retired Smoking Status: Former smoker Tobacco: How many years used: 50 (stopped about 10 yrs ago) how long ago did patient quit smokin years ago alcohol intake: current alcohol intake frequency: 3 or more drinks per day Alcohol type: beer, wine and hard liquor substance use type: does not use caffeine: Yes Type: coffee Number of servings: 2 ROS Constitutional Constitutional: Reports fatigue and weakness; Denies chills or fever(s) Eyes Eyes: Denies change in vision Cardiovascular Cardiovascular: Reports dyspnea on exertion and orthopnea; Denies chest pain, edema, lightheadedness or palpitations Respiratory/Chest Respiratory/Chest: Reports cough and shortness of breath at rest; Denies productive cough or wheezing Gastrointestinal Gastrointestinal: Denies abdominal pain Musculoskeletal Musculoskeletal: Denies arthralgias or myalgias Neurologic Neurologic: Denies dizziness, focal weakness or headache(s) Vital Signs Vital Signs Vital Signs: 04/26/25 12:33 04/26/25 12:39 04/26/25 12:44 Temperature 97.1 F L Temperature Source Axillary Pulse Rate 104 H Respiratory Rate 25 H Respiratory Effort Respiratory Pattern Blood Pressure 168/67 H Blood Pressure Mean 100 Pulse Ox 95 98 96 Oxygen Delivery Method High Flow High Flow Nasal Cannula Oxygen Flow Rate (L/min) 10 8 8 04/26/25 12:49 04/26/25 13:28 Temperature Temperature Source Pulse Rate 81 Respiratory Rate Respiratory Effort Short of Breath Respiratory Pattern Tachypnea Blood Pressure 156/57 H Blood Pressure Mean 90 Pulse Ox Oxygen Delivery Method High Flow Oxygen Flow Rate (L/min) 8 Weight Weight: 87.3 kg Body Mass Index (BMI) 26.8 Physical Exam Const alert, oriented x3, no apparent distress and average body habitus Constitutional Narrative: Elderly male, fatigued appearing but otherwise sitting back comfortably in bed, conversing normally, in no acute distress. General Appearance: cooperative and comfortable HEENT normocephalic, head/scalp atraumatic, hearing grossly normal bilaterally, nasal mucous membranes and turbinates normal and moist oral mucous membranes Eyes PERRL, EOMs intact bilaterally and conjunctivae normal Neck full ROM Chest inspection of chest normal Resp normal respiratory effort and no use of accessory muscles Resp Narrative: Breathing comfortably on 10 L high flow nasal cannula at rest. Diminished breath sounds bilaterally throughout with crackles noted in mid to lower lung zones. No wheezing noted. Cardio no murmurs and peripheral pulses 2+ throughout Cardio Narrative: Tachycardic, regular rhythm. GI normal to inspection, nondistended, normoactive bowel sounds, soft to palpation, non-tender and non-distended Back/Spine normal ROM Extremity full ROM Extremity Narrative: +1 nonpitting lower extremity edema noted. Skin no rashes or lesions noted Psych mental status grossly normal Results Lab / Micro Data 04/26/25 12:32 04/26/25 12:32 Labs: Laboratory Results - last 24 hr 04/26/25 12:32: WBC 9.8, RBC 3.14 L, Hgb 10.9 L, Hct 33.1 L, MCV 105.4 H, MCH 34.7 H, MCHC 32.9, RDW Std Deviation 53.0 H, RDW Coeff of Chanel 13.7, Plt Count 164, MPV 9.9, Immature Gran % (Auto) 0.400, Neut % (Auto) 75.8 H, Lymph % (Auto) 12.4 L, [place] % (Auto) 10.6 H, Eos % (Auto) 0.4, Baso % (Auto) 0.4, Absolute Neuts (auto) 7.4, Absolute Lymphs (auto) 1.21, Nucleated RBC % 0, Sodium 141, Potassium 4.4, Chloride 107, Carbon Dioxide 20.1 L, Anion Gap 14, BUN 52 H, Creatinine 2.47 H, Estim Creat Clear Calc 24.13 L, Est GFR (MDRD) Non-Af 25 L, BUN/Creatinine Ratio 21.1 H, Glucose 189 H, Calcium 8.9, Troponin T High Sens 84 H*, [place] [address] H Rhythm Strip Rhythm Strip: Sinus Tach Rate: 112 Ectopy: PVC(s) Imaging Radiology Impression Chest X-Ray 04/26/25 12:50 IMPRESSION: Cardiac enlargement. Interstitial edema. Scant pleural fluid. Reading Location: [id number] Assessment & Plan Assessment/Plan (1) Acute hypoxemic respiratory failure: (2) CHF exacerbation: PLAN: Plan Patient is an 84-year-old male who presented to [facility] on 04/26/2025 with shortness of breath. 1. Acute hypoxic respiratory failure secondary to acute CHF exacerbation ? Admit under inpatient status to PCU. Not on home oxygen. Requiring high flow 10 L nasal cannula on admit to maintain appropriate oxygen saturations. Chest x-ray showed cardiac enlargement and interstitial edema, no pleural effusions. BNP greater than 17,000. Initial troponin 88, repeat pending. EKG with sinus tachycardia, no acute ST changes. Last echo in 11/2022 showed EF 60%, moderate concentric LV hypertrophy, severely enlarged LA, severe pulmonary hypertension. Unclear etiology at this time. Cannot rule out recurrent coronary disease but given history of acute blood loss anemia on anticoagulation, will hold off on heparin drip. Echocardiogram ordered. Pending echo results, can consider either stress testing versus cardiology consult for consideration of left heart cath. Will treat with IV Bumex 1 mg twice daily for now (Lasix allergy listed), monitor daily BMP and urine output. Fasting lipid profile ordered. Continue home statin. Is on a baby aspirin once weekly on Mondays, will hold this for now. Hypertensive to the 160s on admit, continue home amlodipine and hydralazine. Continue cardiac monitoring. 2. History of CAD with CABG and stenting, paroxysmal A-fib not on anticoagulation, hypertension, hyperlipidemia, history of chronic mesenteric ischemia s/p SMA stenting ? Follows with cardiology, last office visit in September. Had cardiac stenting in 2008 and CABG x 2 in 2017. Most recently had SMA stenting with vascular surgery on 02/23. Sinus tachycardia noted on admit. Medication management for now as above. 3. CKD stage IV ? Creatinine 2.43 on admit, at baseline. Patient notes he is going to establish with outpatient nephrology in about 3 weeks. Has been in CKD stage IV for over 2 years on chart review. Reports adequate urine output recently. Treated with IV Bumex as above, monitor daily BMP and urine output. 4. Chronic mild anemia ? Follows with hematology/oncology, last office visit in February. Anemia is multifactorial secondary to iron deficiency in setting of ulcerative colitis as well as secondary to chronically disease. Hemoglobin 10.9 on admit, stable at baseline. Most recent iron studies on 03/03 showed ferritin 769, iron saturation normal. Will hold p.o. iron supplement at this time. 5. History of ulcerative colitis ? On chart review, appears he was previously on medication for this but that has since been discontinued. Denies any recent issues with this. No inpatient needs, outpatient follow-up. 6. Acute on chronic debility ? PT/OT/case management consulted. Patient lives at home alone, reports decent functional status at baseline. His has lived at [place] for the past 2 years and he is able to drive over there to see her. He does feel weaker over the past few days than his normal. Appreciate therapy recommendations. DVT prophylaxis: Heparin subcu CODE STATUS: DNR-CCA, DNI Expected disposition: TBD Total clinical time spent by myself addressing the patient's medical issues, reviewing all the data, and collaborating with patient's care team: 79 minutes. Charges/Coding Visit Charges Inpatient E&M: 09305 Init Hosp L3
--- NOTE | 2025-04-26 13:52 | ECHOCS_ITS ---
Reason For Study ECHO/Echo Complete W/ Contrast
--- NOTE | 2025-04-26 14:20 | CASEMGMT ---
Care Management Face to Face with patient for initial transition planning/care coordination assessment in the ED.? This medical writer introduced self and role at [facility]. Patient alert and oriented. Patient willing to participate in assessment and is able to answer all questions appropriately.? Care providers, pharmacy, and demographics verified. Admitting Diagnosis: Acute hypoxic respiratory failure Other diagnosis history: ?anemia, hypertension, bradycardia, CKD, PAD PCP: ?[facility] Specialists: ?[facility], Cardiology; Mendez Khanna surgeon; Marya Akins Preferred Pharmacy: [facility] Insurance: Medicare Prescription Benefit: ?yes Living Will/HPOA: ?completed and on file LNOK: [place] Living Arrangements: ?patient lives alone in a one story house with basement Transportation: ?patient drives DME: ?lift chair for basement, blood pressure cuff, pulse ox, shower chair, grab bars, wheelchair, rollators, walker HHC: used HH in the past but cannot remember name of company SNF/Rehab: [facility] Community Resources: ?none Behavioral Health History: ?none Patient goals: Patient wishes to discharge home, denies need for home health care at this time. Patient denies any further needs or concerns at this time. Disposition Plan: admission to acute; RN CM/SW to follow for discharge planning needs that may arise. Damaris Fitch, BRAKE OPERATOR HELPER, MANAGER DAIRY
[2025-04-26 15:28] LABS: Troponin T High Sens 2 HR 79 ng/L (<=22)
[2025-04-26] MEDS: Heparin Injection (Vial) 5,000 UNIT/ML VIAL 5000 UNIT SC (20:55)
[2025-04-26] MEDS: 0.9% Saline Lock 10 ML Syringe IV (20:55)
[2025-04-27] VITALS (7 sets, daily range): BP systolic 128–165; BP diastolic 59–82; PULSE 79–85; RESP 18–20; TEMP 36.6–37.1; O2SAT 93–97
[2025-04-27 05:55] LABS: Hematocrit 28.6 % (40-54); Hemoglobin 9.5 g/dL (13.0-16.5); Mean Corp Hgb Conc 33.2 g/dL (32-36); Mean Corpuscular Volume 102.1 fL (80-94); Mean Platelet Vol. 10.3 fl (6.2-12.0); Platelet Count 138 K/mm3 (150-450); RBC Distribution Width CV 13.6 % (11.6-14.6); RBC Distribution Width SD 51.5 fl (35.1-43.9); Red Blood Count 2.80 M/mm3 (4.6-6.2); White Blood Count 4.5 K/mm3 (4.4-11.0)
[2025-04-27 06:21] LABS: Anion Gap 13 (5-15); BUN 66 mg/dL (4-19); BUN/Creat Ratio 22.4 RATIO (10-20); Calcium,Total 9.2 mg/dL (7.6-11.0); Carbon Dioxide 20.1 mmol/L (21.0-32.0); Chloride 106 mmol/L (98-108); Cholesterol 157 mg/dL (<=200); Estimated Creatinine Clearance 19.52 ml/min (50-250); Glucose 222 mg/dL (70-99); Low Density Lipoprotein Calc. 62 mg/dL; Potassium 4.9 mmol/L (3.3-5.1); Triglycerides 34 mg/dL; Very Low Density Lipoprotein 7 mg/dL (5-40); cholesterol:hdl ratio screen 1.81
--- NOTE | 2025-04-27 08:04 | PN.HOSP_ITS ---
Reason for Visit
--- NOTE | 2025-04-27 08:04 | PCM.PN.HOSP ---
Reason for Visit Chief Complaint: Shortness of breath Subjective Subjective Patient is an 84-year-old gentleman who presented with progressive shortness of breath and assessment of acute congestive heart failure made admitted to monitored bed for further management Objective Data Objective Data Vital Signs: Vital Signs Temp Pulse Resp BP Pulse Ox O2 Del Method O2 Flow Rate 98.4 F 79 18 161/65 H 93 High Flow 12 04/27/25 04:10 04/27/25 04:10 04/27/25 04:10 04/27/25 04:10 04/27/25 04:10 04/27/25 04:14 04/27/25 04:14 Oxygen Flow Rate (L/min) 12 Oxygen Delivery Method High Flow Weight: 82.554 kg Body Mass Index (BMI) 26.1 Intake & Output: Intake and Output for Last 24 Hours 04/25/25 04/26/25 04/27/25 23:59 23:59 23:59 Intake Total 670 / 670 Output Total 200 / 200 Balance 470 / 470 Lab / Micro Data 04/27/25 05:08 04/27/25 05:08 Labs: Laboratory Results - last 24 hr 04/26/25 12:32: WBC 9.8, RBC 3.14 L, Hgb 10.9 L, Hct 33.1 L, MCV 105.4 H, MCH 34.7 H, MCHC 32.9, RDW Std Deviation 53.0 H, RDW Coeff of Chanel 13.7, Plt Count 164, MPV 9.9, Immature Gran % (Auto) 0.400, Neut % (Auto) 75.8 H, Lymph % (Auto) 12.4 L, Will % (Auto) 10.6 H, Eos % (Auto) 0.4, Baso % (Auto) 0.4, Absolute Neuts (auto) 7.4, Absolute Lymphs (auto) 1.21, Nucleated RBC % 0, Sodium 141, Potassium 4.4, Chloride 107, Carbon Dioxide 20.1 L, Anion Gap 14, BUN 52 H, Creatinine 2.47 H, Estim Creat Clear Calc 24.13 L, Est GFR (MDRD) Non-Af 25 L, BUN/Creatinine Ratio 21.1 H, Glucose 189 H, Hemoglobin A1c 4.9, Calcium 8.9, Troponin T High Sens 84 H*, [place] [address] H 04/26/25 14:42: Troponin T Hi Sens 2 Hr 79 H* 04/27/25 05:08: WBC 4.5, RBC 2.80 L, Hgb 9.5 L, Hct 28.6 L, MCV 102.1 H, MCH 33.9 H, MCHC 33.2, RDW Std Deviation 51.5 H, RDW Coeff of Chanel 13.6, Plt Count 138 L, MPV 10.3, Sodium 139, Potassium 4.9, Chloride 106, Carbon Dioxide 20.1 L, Anion Gap 13, BUN 66 H, Creatinine 2.96 H, Estim Creat Clear Calc 19.52 L, Est GFR (MDRD) Non-Af 20 L, BUN/Creatinine Ratio 22.4 H, Glucose 222 H, Calcium 9.2, Triglycerides 34, Cholesterol 157, LDL Cholesterol, Calc 62, VLDL Cholesterol 7, HDL Cholesterol 87, Cholesterol/HDL Ratio 1.81 Radiography Diagnostic Testing: Radiology Impression Chest X-Ray 04/26/25 12:50 IMPRESSION: Cardiac enlargement. Interstitial edema. Scant pleural fluid. Reading Location: [facility] Rhythm Strip Rhythm Strip: Sinus Tach Rate: 112 Ectopy: PVC(s) Physical Exam Narrative GENERAL: cooperative HEENT: Atraumatic; normocephalic EYES; Anicteric, Normal Conjunctiva NECK; supple, normal thyroid, RESPIRATORY: Diminished to auscultation CARDIOVASCULAR: Regular S1 S2, GI: soft, normoactive bowel sounds, : No Renal angle tenderness; EXTREMITIES: 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 SKIN: No Rash PSYCH; Flat affect Assessment & Plan Assessment/Plan (1) Acute hypoxemic respiratory failure: (2) CHF exacerbation: PLAN: Plan Patient is an 84-year-old gentleman who presented with progressive shortness of breath and assessment of acute congestive heart failure made admitted to monitored bed for further management 1. Acute hypoxic respiratory failure ? Secondary to CHF. Admitted to monitored bed for treatment of the underlying clinical etiology 2. Acute on chronic congestive heart failure with preserved ejection fraction ? Echo from 623 demonstrated EF of 60% with moderate concentric left ventricular hypertrophy with severely enlarged left atrium and severe pulmonary hypertension. Admitted to monitored bed manage with strict input and output, daily weight, furosemide with repeat echo ordered 3. Coronary artery disease ? With previous history of CABG and stent placement plan is to continue with guideline directed medical therapy 4. Paroxysmal A-fib ? Rate controlled not on systemic anticoagulation 5. Peripheral arterial disease ? With history of chronic mesenteric ischemia status post SMA stenting 6. Dyslipidemia ?Patient is on statin therapy, continued at home dose 7. Hypertension ? Blood pressure controlled, home medications continued with dose adjustment as needed 8. Anemia ? Secondary to chronic disorder monitoring H&H and transfuse if patient becomes symptomatic or hemoglobin falls below 7 9. History of ulcerative colitis ? Stable currently not on any chronic meds 10. Chronic kidney disease stage IV ? Patient kidney function at baseline plan is to avoid potential nephrotoxic medication. Decision was made to consult nephrology given patient worsening kidney function following initiation of diuretic therapy 11. Elevated troponin ? Secondary to demand ischemia from congestive heart failure 12. DVT prophylaxis ? Subcu heparin Time spent in the patient's overall evaluation,decision-making process, review of diagnostic data, adjustment of management, discussion with other providers, nursing nursing and ancillary staff involved in patient's care documentation, 52 Minutes Charges/Coding Visit Charges Inpatient E&M: 25894 Subs Hosp L3
[2025-04-27] MEDS: Heparin Injection (Vial) 5,000 UNIT/ML VIAL 5000 UNIT SC ×2 (09:45→21:45)
[2025-04-27] MEDS: 0.9% Saline Lock 10 ML Syringe IV ×3 (10:02→20:02)
--- NOTE | 2025-04-27 11:10 | PCM.CONS.R ---
Documented by User: TESSA Nava 04/27/25 11:26 Assessment & Plan Assessment/Plan (1) Chronic kidney disease (CKD), stage 4: (2) Acute hypoxemic respiratory failure: PLAN: Plan This is an 84-year-old male with past medical history significant for coronary artery disease with stenting and CABG x 2, chronic mesenteric ischemia status post SMA stenting, paroxysmal A-fib not on anticoagulation secondary to history of acute blood loss anemia, iron deficiency anemia (followed by Dr. Mcintyre), ulcerative colitis, chronic debility, CKD stage IV, who presented to the emergency room yesterday with complaints of shortness of breath admitted for acute hypoxic respiratory failure, fluid overload secondary to acute CHF exacerbation, chest x-ray showing interstitial edema, cardiac enlargement. Nephrology consulted in view of elevated creatinine. Patient is known to our service as we have seen patient in hospital setting for MYRON on CKD. Patient has never required any renal placement therapy. Baseline creatinine has been ranging around 2.5 mg/dL but does have fluctuation in serum creatinine levels. On admission yesterday creatinine 2.4, today creatinine 2.9. Echo ordered and pending. 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 Patient is on bumetanide IV twice daily, will continue with current dose. Patient is nonoliguric. Per patient feeling better, breathing is better. Likely near baseline CKD with fluctuations in serum creatinine from cardiorenal syndrome physiology. No acute indication for RIBBON INKER, though patient does appear mildly hypervolemic no emergent need for renal replacement therapy, potassium and bicarb acceptable. Will check UA and urine protein creatinine ratio. In November 2022 urine protein creatinine ratio 492 mg/g. Patient had CT of abdomen and pelvis in October 2024 which did not show any hydronephrosis, mild atrophy of right and left kidney, no masses, no calculi. Blood pressures acceptable. Patient has appointment in our [place] office May 04. Further orders forthcoming as hospitalization evolves, thank you for allowing us to partcipate in the care of Mr. Noguera. Assessment and plan reviewed with Dr. James. HPI Consult Data Date of Consult: 04/27/25 HPI Narrative HPI Narrative: EULOGIO NOGUERA, is a 84 M who presented to the emergency room yesterday with complaints of shortness of breath and difficulty breathing. Chest x-ray emergency room showed cardiac enlargement and interstitial edema, BNP 17,000. Patient was given IV Bumex and admitted for further evaluation and treatment. Nephrology consulted in view of elevated creatinine. Patient is known to us from previous hospital consults and seen in hospital setting but has not been seen in outpatient setting however patient does have an appointment in our [place] office on May 04. Patient has past medical history significant for coronary artery disease with stenting and CABG x 2, chronic mesenteric ischemia status post SMA stenting, paroxysmal A-fib not on anticoagulation secondary to history of acute blood loss anemia, iron deficiency anemia (followed by Dr. Mcintyre), ulcerative colitis, chronic debility, CKD stage IV. Patient reports he had been feeling well up until few days ago when noticed difficulty breathing. Patient does not weigh himself daily. Patient states he does not take diuretic on a daily basis, has only been taking diuretic when notes worsening lower extremity edema. States he is able to tolerate furosemide for short period time but then will develop rash on legs therefore recently has been taking bumetanide as needed. Patient denies any lower urinary tract symptoms, denies dysuria or hematuria. Patient denies NSAIDs. States fair appetite [facility] Medical History (Updated 04/27/25 @ 11:18 by Jackie Myrick NP-Kamran) Kidney disease History of Holter monitoring H/O transesophageal echocardiography (ROSI) for monitoring Multiple excoriations Anemia Pulmonary hypertension Severe sinus bradycardia CKD (chronic kidney disease) stage 3, GFR 30-59 ml/min General weakness Debility Hyperkalemia Palpitations History of edema Elevated troponin Fever Mitral valve insufficiency PAD (peripheral artery disease) Pancytopenia History of right inguinal hernia History of umbilical hernia Wears hearing aid Wears glasses Alcohol use Thyroid disease Walker as ambulation aid High cholesterol Injury of head and neck Dietary restriction History of GI bleed Hx of ulcerative colitis History of stress test History of echocardiogram History of transesophageal echocardiography (ROSI) Cardiology follow-up encounter History of atrial fibrillation Emphysema of lung Hyperlipidemia Hypertension Atrial fibrillation Hypertension Former smoker History of cardioversion (~05/09/20) Subclavian artery stenosis, left (~10/15/19) Essential hypertension Thrombocytopenia Upper GI bleed Atherosclerotic heart disease of mechoopda coronary artery without angina pectoris Premature atrial contractions Atrial fibrillation and flutter MCFP (current) use 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 Hematemesis/vomiting blood Upper GI bleed History of coronary artery disease Thrombocytopenia Ulcerative colitis Right carotid bruit Hypercholesterolemia Home Medications ?Medication ?Instructions ?Recorded ?Last Taken ?Type ferrous sulfate 325 mg (65 mg 325 mg PO DAILY vitamin 05/28/15 12/26/24 History iron) tablet vitamin B complex 1 each PO DAILY vitamin 02/07/16 12/26/24 History aspirin 81 mg tablet,delayed 81 mg PO MO Anticoagulation 04/14/23 12/20/24 History release zinc acetate 50 mg (zinc) capsule 50 mg PO DAILY Supplement 09/29/23 12/26/24 History atorvastatin 40 mg tablet (Lipitor) 40 mg PO DAILY cholesterol #90 tabs 03/08/24 12/26/24 Rx lisinopril 20 mg tablet 20 mg PO DAILY #90 tabs 07/16/24 Unknown Rx Held on 11/08/24. Instructions: Order Changed hydralazine 50 mg tablet 100 mg (2 x 50 mg) PO BID #360 tabs 02/18/25 02/23/25 Rx amlodipine 10 mg tablet 10 mg PO DAILY #90 tabs 03/14/25 Unknown Rx Allergy/AdvReac Type Severity Reaction Status Date / Time hydrochlorothiazide Allergy Severe Rash Verified 03/03/25 11:46 furosemide (From Lasix) Allergy Severe Verified 03/03/25 11:46 Rash Itchy lovastatin (From Mevacor) Allergy Rash Verified 03/03/25 11:46 Family History Father CAD (coronary artery disease) Mother Cancer breast Surgical History S/P umbilical hernia repair, follow-up exam S/P right inguinal hernia repair History of umbilical hernia repair History of right inguinal hernia repair Hx of colonoscopy History of cardiac catheterization Hx of heart bypass surgery Hx of esophagogastroduodenoscopy Hx of CABG History of hand surgery History of vasectomy Aortocoronary bypass status (~02/12/17) Status post insertion of drug-eluting stent into right coronary artery for coronary artery disease (~04/2009) Social History adopted: No household members: spouse housing: house number of children: 2 current occupational status: retired Smoking Status: Former smoker Tobacco: How many years used: 50 (stopped about 10 yrs ago) how long ago did patient quit smokin years ago alcohol intake: current alcohol intake frequency: 3 or more drinks per day Alcohol type: beer, wine and hard liquor substance use type: does not use caffeine: Yes Type: coffee Number of servings: 2 ROS ROS Narrative As in HPI otherwise negative Physical Exam Narrative Alert and oriented x 3, no apparent distress S1, S2, rhythm irregular, rate controlled Diminished breath sounds with scattered rales. On O2 nasal cannula Abdomen soft, nontender Trace nonpitting edema bilateral lower legs Lab / Micro Data 04/27/25 05:08 04/27/25 05:08 Labs: Laboratory Results - last 24 hr 04/26/25 12:32: WBC 9.8, RBC 3.14 L, Hgb 10.9 L, Hct 33.1 L, MCV 105.4 H, MCH 34.7 H, MCHC 32.9, RDW Std Deviation 53.0 H, RDW Coeff of Chanel 13.7, Plt Count 164, MPV 9.9, Immature Gran % (Auto) 0.400, Neut % (Auto) 75.8 H, Lymph % (Auto) 12.4 L, [place] % (Auto) 10.6 H, Eos % (Auto) 0.4, Baso % (Auto) 0.4, Absolute Neuts (auto) 7.4, Absolute Lymphs (auto) 1.21, Nucleated RBC % 0, Sodium 141, Potassium 4.4, Chloride 107, Carbon Dioxide 20.1 L, Anion Gap 14, BUN 52 H, Creatinine 2.47 H, Estim Creat Clear Calc 24.13 L, Est GFR (MDRD) Non-Af 25 L, BUN/Creatinine Ratio 21.1 H, Glucose 189 H, Hemoglobin A1c 4.9, Calcium 8.9, Troponin T High Sens 84 H*, [place] [address] H 04/26/25 14:42: Troponin T Hi Sens 2 Hr 79 H* 04/27/25 05:08: WBC 4.5, RBC 2.80 L, Hgb 9.5 L, Hct 28.6 L, MCV 102.1 H, MCH 33.9 H, MCHC 33.2, RDW Std Deviation 51.5 H, RDW Coeff of Chanel 13.6, Plt Count 138 L, MPV 10.3, Sodium 139, Potassium 4.9, Chloride 106, Carbon Dioxide 20.1 L, Anion Gap 13, BUN 66 H, Creatinine 2.96 H, Estim Creat Clear Calc 19.52 L, Est GFR (MDRD) Non-Af 20 L, BUN/Creatinine Ratio 22.4 H, Glucose 222 H, Calcium 9.2, Triglycerides 34, Cholesterol 157, LDL Cholesterol, Calc 62, VLDL Cholesterol 7, HDL Cholesterol 87, Cholesterol/HDL Ratio 1.81 Rhythm Strip Rhythm Strip: Sinus Tach Rate: 112 Ectopy: PVC(s) Imaging Radiology Impression Chest X-Ray 04/26/25 12:50 IMPRESSION: Cardiac enlargement. Interstitial edema. Scant pleural fluid. Reading Location: [id number] Documented by User: Dr. Kvng James MD 04/27/25 19:18 Assessment & Plan Assessment/Plan (1) Chronic kidney disease (CKD), stage 4: (2) Acute hypoxemic respiratory failure: PLAN: Plan This is an 84-year-old male with past medical history significant for coronary artery disease with stenting and CABG x 2, chronic mesenteric ischemia status post SMA stenting, paroxysmal A-fib not on anticoagulation secondary to history of acute blood loss anemia, iron deficiency anemia (followed by Dr. Mcintyre), ulcerative colitis, chronic debility, CKD stage IV, who presented to the emergency room yesterday with complaints of shortness of breath admitted for acute hypoxic respiratory failure, fluid overload secondary to acute CHF exacerbation, chest x-ray showing interstitial edema, cardiac enlargement. Nephrology consulted in view of elevated creatinine. Patient is known to our service as we have seen patient in hospital setting for MYRON on CKD. Patient has never required any renal placement therapy. Baseline creatinine has been ranging around 2.5 mg/dL but does have fluctuation in serum creatinine levels. On admission yesterday creatinine 2.4, today creatinine 2.9. Echo ordered and pending. 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 Patient is on bumetanide IV twice daily, will continue with current dose. Patient is nonoliguric. Per patient feeling better, breathing is better. Likely near baseline CKD with fluctuations in serum creatinine from cardiorenal syndrome physiology. No acute indication for RIBBON INKER, though patient does appear mildly hypervolemic no emergent need for renal replacement therapy, potassium and bicarb acceptable. Will check UA and urine protein creatinine ratio. In November 2022 urine protein creatinine ratio 492 mg/g. Patient had CT of abdomen and pelvis in October 2024 which did not show any hydronephrosis, mild atrophy of right and left kidney, no masses, no calculi. Blood pressures acceptable. Patient has appointment in our [place] office May 04. Further orders forthcoming as hospitalization evolves, thank you for allowing us to partcipate in the care of Mr. Noguera. Assessment and plan reviewed with Dr. James. Addendum seen and examined independently. Reviewed prior lab and imaging data. He had a CTA in October with bilteral critical Renal A stenosis. RIght side 80 percent and kidney is moderately atrophic. left kidney 70 percent mild atrophy. he had mesentric stent with Dr Khanna it appears. he may be a candidate for Renal A stenting. however his renal function is borderline. will discuss further HPI Consult Data Date of Consult: 04/27/25 [facility] Medical History (Updated 04/27/25 @ 11:18 by TESSA Nava) Kidney disease History of Holter monitoring H/O transesophageal echocardiography (ROSI) for monitoring Multiple excoriations Anemia Pulmonary hypertension Severe sinus bradycardia CKD (chronic kidney disease) stage 3, GFR 30-59 ml/min General weakness Debility Hyperkalemia Palpitations History of edema Elevated troponin Fever Mitral valve insufficiency PAD (peripheral artery disease) Pancytopenia History of right inguinal hernia History of umbilical hernia Wears hearing aid Wears glasses Alcohol use Thyroid disease Walker as ambulation aid High cholesterol Injury of head and neck Dietary restriction History of GI bleed Hx of ulcerative colitis History of stress test History of echocardiogram History of transesophageal echocardiography (ROSI) Cardiology follow-up encounter History of atrial fibrillation Emphysema of lung Hyperlipidemia Hypertension Atrial fibrillation Hypertension Former smoker History of cardioversion (~05/09/20) Subclavian artery stenosis, left (~10/15/19) Essential hypertension Thrombocytopenia Upper GI bleed Atherosclerotic heart disease of mechoopda coronary artery without angina pectoris Premature atrial contractions Atrial fibrillation and flutter MCFP (current) use 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 Hematemesis/vomiting blood Upper GI bleed History of coronary artery disease Thrombocytopenia Ulcerative colitis Right carotid bruit Hypercholesterolemia Home Medications ?Medication ?Instructions ?Recorded ?Last Taken ?Type ferrous sulfate 325 mg (65 mg 325 mg PO DAILY vitamin 05/28/15 12/26/24 History iron) tablet vitamin B complex 1 each PO DAILY vitamin 02/07/16 12/26/24 History aspirin 81 mg tablet,delayed 81 mg PO MO Anticoagulation 04/14/23 12/20/24 History release zinc acetate 50 mg (zinc) capsule 50 mg PO DAILY Supplement 09/29/23 12/26/24 History atorvastatin 40 mg tablet (Lipitor) 40 mg PO DAILY cholesterol #90 tabs 03/08/24 12/26/24 Rx lisinopril 20 mg tablet 20 mg PO DAILY #90 tabs 07/16/24 Unknown Rx Held on 11/08/24. Instructions: Order Changed hydralazine 50 mg tablet 100 mg (2 x 50 mg) PO BID #360 tabs 02/18/25 02/23/25 Rx amlodipine 10 mg tablet 10 mg PO DAILY #90 tabs 03/14/25 Unknown Rx Allergy/AdvReac Type Severity Reaction Status Date / Time hydrochlorothiazide Allergy Severe Rash Verified 03/03/25 11:46 furosemide (From Lasix) Allergy Severe Verified 03/03/25 11:46 Rash Itchy lovastatin (From Mevacor) Allergy Rash Verified 03/03/25 11:46 Family History Father CAD (coronary artery disease) Mother Cancer breast Surgical History S/P umbilical hernia repair, follow-up exam S/P right inguinal hernia repair History of umbilical hernia repair History of right inguinal hernia repair Hx of colonoscopy History of cardiac catheterization Hx of heart bypass surgery Hx of esophagogastroduodenoscopy Hx of CABG History of hand surgery History of vasectomy Aortocoronary bypass status (~02/12/17) Status post insertion of drug-eluting stent into right coronary artery for coronary artery disease (~04/2009) Social History adopted: No household members: spouse housing: house number of children: 2 current occupational status: retired Smoking Status: Former smoker Tobacco: How many years used: 50 (stopped about 10 yrs ago) how long ago did patient quit smokin years ago alcohol intake: current alcohol intake frequency: 3 or more drinks per day Alcohol type: beer, wine and hard liquor substance use type: does not use caffeine: Yes Type: coffee Number of servings: 2 Lab / Micro Data 04/27/25 05:08 04/27/25 05:08
[2025-04-27 14:27] LABS: Mucous, Urine 0 SEEN /hpf (<or=2+)
[2025-04-27 14:55] LABS: Color, Urine Straw (Yellow); Glucose, Dipstick Normal (Normal); Ketone-Dipstick Negative (Negative); Leukocyte Esterase-Dipstick Negative /ul (Negative); Nitrite-Dipstick Negative (Negative); Occult Blood-Urine Negative /ul (Negative); Protein-Dipstick 100 mg/dl (Negative); Specific Gravity, Urine 1.015 (1.002-1.030); Urine Bilirubin Dipstick Negative (Negative)
[2025-04-27 15:07] LABS: Creatinine, Urine (random) 89.10 mg/dL (39.00-259.00); Protein, Urine (Random) 61.9 mg/dL (0.0-12.0); Protein:Creat Ratio 695 mg/g CRE (0-200)
[2025-04-27 16:39] LABS: Red Blood Cells-Urine 0-5 SEEN /hpf (0-5); Squamous Epithelial Cells - UA 0-5 SEEN /hpf (0-5)
[2025-04-28] VITALS (9 sets, daily range): BP systolic 138–166; BP diastolic 60–74; PULSE 78–89; RESP 16–22; TEMP 36.6–36.9; O2SAT 92–96
[2025-04-28 05:45] LABS: Hematocrit 28.6 % (40-54); Hemoglobin 9.3 g/dL (13.0-16.5); Immature Granulocytes Count 0.070 X10^3/uL (0.0-0.0); Mean Corp Hgb Conc 32.5 g/dL (32-36); Mean Corpuscular Volume 102.9 fL (80-94); Mean Platelet Vol. 10.0 fl (6.2-12.0); NRBC Flagged by Analyzer 0 % (0-5); POSITIVE DIFFERENTIAL YES; Platelet Count 133 K/mm3 (150-450); RBC Distribution Width CV 14.2 % (11.6-14.6); RBC Distribution Width SD 53.5 fl (35.1-43.9); Red Blood Count 2.78 M/mm3 (4.6-6.2); White Blood Count 11.1 K/mm3 (4.4-11.0)
[2025-04-28 06:26] LABS: Anion Gap 13 (5-15); BUN 82 mg/dL (4-19); BUN/Creat Ratio 23.8 RATIO (10-20); Calcium,Total 8.8 mg/dL (7.6-11.0); Carbon Dioxide 20.5 mmol/L (21.0-32.0); Chloride 107 mmol/L (98-108); Estimated Creatinine Clearance 16.80 ml/min (50-250); Glucose 134 mg/dL (70-99); Magnesium 2.6 mg/dL (1.5-2.2); Potassium 4.8 mmol/L (3.3-5.1)
--- NOTE | 2025-04-28 07:35 | PN.HOSP_ITS ---
Reason for Visit
--- NOTE | 2025-04-28 07:35 | PCM.PN.HOSP ---
Reason for Visit Chief Complaint: Shortness of breath Subjective Subjective Patient seen still remains dyspneic at rest currently on 6 L of oxygen.. Patient kidney function worsening Objective Data Objective Data Vital Signs: Vital Signs Temp Pulse Resp BP Pulse Ox O2 Del Method O2 Flow Rate 97.8 F 89 22 H 158/74 H 96 High Flow 6 04/28/25 03:40 04/28/25 03:40 04/28/25 03:40 04/28/25 03:40 04/28/25 03:40 04/28/25 03:56 04/28/25 03:56 Oxygen Flow Rate (L/min) 6 Oxygen Delivery Method High Flow Weight: 82.554 kg Body Mass Index (BMI) 26.1 Intake & Output: Intake and Output for Last 24 Hours 04/26/25 04/27/25 04/28/25 23:59 23:59 23:59 Intake Total 670 / 670 780 / 780 100 / 100 Output Total 200 / 200 550 / 550 400 / 400 Balance 470 / 470 230 / 230 -300 / -300 Lab / Micro Data 04/28/25 05:20 04/28/25 05:20 Labs: Laboratory Results - last 24 hr 04/27/25 14:02: Urine Color Straw, Urine Clarity Clear, Urine pH 5.0, Ur Specific [place] 1.015, Urine Protein 100 H, Urine Glucose (UA) Normal, Urine Ketones Negative, Urine Occult Blood Negative, Urine Nitrite Negative, Urine Bilirubin Negative, Urine Urobilinogen Normal, Ur Leukocyte Esterase Negative, Urine RBC 0-5 SEEN, Urine WBC 0-5 SEEN, Ur Squamous Epith Cells 0-5 SEEN, Urine Bacteria 0 SEEN, Urine Mucus 0 SEEN, U Random Total Protein 61.9 H, Urine Creatinine 89.10, Protein/Creatinin Ratio 695 H 04/28/25 05:20: WBC 11.1 H, RBC 2.78 L, Hgb 9.3 L, Hct 28.6 L, MCV 102.9 H, MCH 33.5 H, MCHC 32.5, RDW Std Deviation 53.5 H, RDW Coeff of Chanel 14.2, Plt Count 133 L, MPV 10.0, Immature Gran % (Auto) 0.600, Neut % (Auto) 88.5 H, Lymph % (Auto) 3.4 L, [place] % (Auto) 7.4, Eos % (Auto) 0.0, Baso % (Auto) 0.1, Absolute Neuts (auto) 9.9 H, Absolute Lymphs (auto) 0.38 L, Nucleated RBC % 0, Sodium 141, Potassium 4.8, Chloride 107, Carbon Dioxide 20.5 L, Anion Gap 13, BUN 82 H, Creatinine 3.44 H, Estim Creat Clear Calc 16.80 L, Est GFR (MDRD) Non-Af 17 L, BUN/Creatinine Ratio 23.8 H, Glucose 134 H, Calcium 8.8, Phosphorus 4.9 H, Magnesium 2.6 H Rhythm Strip Rhythm Strip: Sinus Tach Rate: 112 Ectopy: PVC(s) Physical Exam Narrative GENERAL: cooperative but dyspneic at rest HEENT: Atraumatic; normocephalic EYES; Anicteric, Normal Conjunctiva NECK; supple, normal thyroid, RESPIRATORY: Diminished to auscultation CARDIOVASCULAR: Regular S1 S2, GI: soft, normoactive bowel sounds, : No Renal angle tenderness; EXTREMITIES: 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 SKIN: No Rash PSYCH; Flat affect Assessment & Plan Assessment/Plan (1) Acute hypoxemic respiratory failure: (2) CHF exacerbation: PLAN: Plan Patient is an 84-year-old gentleman who presented with progressive shortness of breath and assessment of acute congestive heart failure made admitted to monitored bed for further management 1. Acute hypoxic respiratory failure ? Secondary to CHF. Admitted to monitored bed for treatment of the underlying clinical etiology ? 04/28/2025; patient still requiring significant amount of oxygen at rest currently on 6 L flow per minute. Patient be assessed for home oxygen prior to discharge 2. Acute on chronic congestive heart failure with preserved ejection fraction ? Echo from 623 demonstrated EF of 60% with moderate concentric left ventricular hypertrophy with severely enlarged left atrium and severe pulmonary hypertension. Admitted to monitored bed manage with strict input and output, daily weight, furosemide with repeat echo ordered ? 04/18/2025; 2D echo did show left ventricular ejection fraction is 55 %. Mild segmental systolic dysfunction (see wall motion). Stage 3 diastolic dysfunction. Mild concentric left ventricular hypertrophy. The left atrium is moderately enlarged. The right atrium is mildly enlarged. Mild (1+) mitral valve insufficiency. Severe mitral annular calcification. Moderate (2+) tricuspid valve insufficiency. Moderate pulmonary hypertension. Patient was transition from furosemide to bumetanide given worsening kidney function. 3. Coronary artery disease ? With previous history of CABG and stent placement plan is to continue with guideline directed medical therapy 4. Paroxysmal A-fib ? Rate controlled not on systemic anticoagulation 5. Peripheral arterial disease ? With history of chronic mesenteric ischemia status post SMA stenting 6. Dyslipidemia ?Patient is on statin therapy, continued at home dose 7. Hypertension ? Blood pressure controlled, home medications continued with dose adjustment as needed 8. Anemia ? Secondary to chronic disorder monitoring H&H and transfuse if patient becomes symptomatic or hemoglobin falls below 7 9. History of ulcerative colitis ? Stable currently not on any chronic meds 10. Chronic kidney disease stage IV ? Patient kidney function at baseline plan is to avoid potential nephrotoxic medication. Decision was made to consult nephrology given patient worsening kidney function following initiation of diuretic therapy ? 04/28/2025; patient was seen in consultation by nephrology plan is for patient to follow-up as outpatient 11. Elevated troponin ? Secondary to demand ischemia from congestive heart failure 12. DVT prophylaxis ? Subcu heparin Time spent in the patient's overall evaluation,decision-making process, review of diagnostic data, adjustment of management, discussion with other providers, nursing nursing and ancillary staff involved in patient's care documentation, 38 Minutes Charges/Coding Visit Charges Inpatient E&M: 50521 Subs Hosp L2
[2025-04-28] MEDS: Heparin Injection (Vial) 5,000 UNIT/ML VIAL 5000 UNIT SC ×2 (10:21→20:19)
--- NOTE | 2025-04-28 14:17 | PCM.PN.REN ---
Subjective Subjective Patient resting in bed. States breathing is about the same. Notes swelling to legs some improvement. Denies any nausea or vomiting. States urinating without any issues. Objective Data Objective Data Vital Signs: Vital Signs Temp Pulse Resp BP Pulse Ox O2 Del Method O2 Flow Rate 98.0 F 78 18 166/60 H 94 Nasal Cannula 6 04/28/25 09:30 04/28/25 10:20 04/28/25 09:30 04/28/25 10:20 04/28/25 09:30 04/28/25 13:08 04/28/25 13:08 Oxygen Flow Rate (L/min) 6 Oxygen Delivery Method Nasal Cannula Weight: 82.554 kg Body Mass Index (BMI) 26.1 Intake & Output: Intake and Output for Last 24 Hours 04/26/25 04/27/25 04/28/25 23:59 23:59 23:59 Intake Total 670 / 670 780 / 780 580 / 580 Output Total 200 / 200 550 / 550 400 / 400 Balance 470 / 470 230 / 230 180 / 180 Lab / Micro Data 04/28/25 05:20 04/28/25 05:20 Labs: Laboratory Results - last 24 hr 04/27/25 14:02: Urine Color Straw, Urine Clarity Clear, Urine pH 5.0, Ur Specific [place] 1.015, Urine Protein 100 H, Urine Glucose (UA) Normal, Urine Ketones Negative, Urine Occult Blood Negative, Urine Nitrite Negative, Urine Bilirubin Negative, Urine Urobilinogen Normal, Ur Leukocyte Esterase Negative, Urine RBC 0-5 SEEN, Urine WBC 0-5 SEEN, Ur Squamous Epith Cells 0-5 SEEN, Urine Bacteria 0 SEEN, Urine Mucus 0 SEEN, U Random Total Protein 61.9 H, Urine Creatinine 89.10, Protein/Creatinin Ratio 695 H 04/28/25 05:20: WBC 11.1 H, RBC 2.78 L, Hgb 9.3 L, Hct 28.6 L, MCV 102.9 H, MCH 33.5 H, MCHC 32.5, RDW Std Deviation 53.5 H, RDW Coeff of Chanel 14.2, Plt Count 133 L, MPV 10.0, Immature Gran % (Auto) 0.600, Neut % (Auto) 88.5 H, Lymph % (Auto) 3.4 L, [place] % (Auto) 7.4, Eos % (Auto) 0.0, Baso % (Auto) 0.1, Absolute Neuts (auto) 9.9 H, Absolute Lymphs (auto) 0.38 L, Nucleated RBC % 0, Sodium 141, Potassium 4.8, Chloride 107, Carbon Dioxide 20.5 L, Anion Gap 13, BUN 82 H, Creatinine 3.44 H, Estim Creat Clear Calc 16.80 L, Est GFR (MDRD) Non-Af 17 L, BUN/Creatinine Ratio 23.8 H, Glucose 134 H, Calcium 8.8, Phosphorus 4.9 H, Magnesium 2.6 H Radiography Diagnostic Testing: Radiology Impression Echocardiogram 04/26/25 13:52 Interpretation Summary The left ventricular ejection fraction is 55 %. Mild segmental systolic dysfunction (see wall motion). Stage 3 diastolic dysfunction. Mild concentric left ventricular hypertrophy. The left atrium is moderately enlarged. The right atrium is mildly enlarged. Mild (1+) mitral valve insufficiency. Severe mitral annular calcification. Moderate (2+) tricuspid valve insufficiency. Moderate pulmonary hypertension. Contrast injection was performed. Ordering Physician: Deandre Araujo Referring Physician: Jakob Jiménez Performed By: Cady Martínez RDCS Rhythm Strip Rhythm Strip: Sinus Tach Rate: 112 Ectopy: PVC(s) Physical Exam Narrative Alert and oriented x 3, no apparent distress S1, S2, rhythm irregular, rate controlled Diminished breath sounds with scattered rales and faint expiratory wheezing. On O2 nasal cannula 6 L Abdomen soft, nontender Trace nonpitting edema bilateral lower legs Assessment & Plan Assessment/Plan (1) Chronic kidney disease (CKD), stage 4: (2) Acute hypoxemic respiratory failure: PLAN: Plan This is an 84-year-old male with past medical history significant for coronary artery disease with stenting and CABG x 2, chronic mesenteric ischemia status post SMA stenting, paroxysmal A-fib not on anticoagulation secondary to history of acute blood loss anemia, iron deficiency anemia (followed by Dr. Mcintyre), ulcerative colitis, chronic debility, CKD stage IV, who presented to the emergency room yesterday with complaints of shortness of breath admitted for acute hypoxic respiratory failure, fluid overload secondary to acute CHF exacerbation, chest x-ray showing interstitial edema, cardiac enlargement. Nephrology consulted in view of elevated creatinine. Patient is known to our service as we have seen patient in hospital setting for MYRON on CKD. Patient has never required any renal placement therapy. Baseline creatinine has been ranging around 2.5 mg/dL but does have fluctuation in serum creatinine levels. On admission yesterday creatinine 2.4, today creatinine 2.9. Echo ordered and pending. 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 Patient is on bumetanide IV twice daily, will continue with current dose. Patient is nonoliguric. Per patient feeling better, breathing is better. Likely near baseline CKD with fluctuations in serum creatinine from cardiorenal syndrome physiology. No acute indication for MANAGER CULINARY, though patient does appear mildly hypervolemic no emergent need for renal replacement therapy, potassium and bicarb acceptable. Will check UA and urine protein creatinine ratio. In November 2022 urine protein creatinine ratio 492 mg/g. Patient had CT of abdomen and pelvis in October 2024 which did not show any hydronephrosis, mild atrophy of right and left kidney, no masses, no calculi. Blood pressures acceptable. Patient has appointment in our [place] office May 04. 04/28/2025; SCr up to 3.44 today, potassium 4.8, bicarb 20. Urine output today about a liter today. Per patient breathing somewhat improved, on O2 6 L nasal cannula improved from high flow O2. Currently on Bumex 1 mg IV twice daily. Echo 04/28: EF 55%, stage III diastolic dysfunction, mild concentric LVH, moderate pulmonary hypertension. Due to his rise in serum creatinine will back off on bumetanide to once daily. Labs ordered for morning. I did have discussion with patient today should kidney function worsen, volume status not improve he may be heading towards needing renal placement therapy. Patient voiced understanding, questions answered and patient is in agreement should he need hemodialysis. - Patient has history of chronic mesenteric ischemia followed by vascular, Dr. Khanna. Patient had CTA in October which showed bilateral critical Renal artery stenosis. Right side 80 percent and kidney is moderately atrophic, left kidney 70 percent mild atrophy. Patient had mesenteric stent with Dr Khanna January 2025. Patient may be a candidate for Renal Artery stenting, however his renal function is borderline. Without intervention patient may be heading towards needing MANAGER CULINARY which may be last intervention to avoid MANAGER CULINARY. Recommend Vascular consult. Nephrology plan reviewed with Dr. Cortez. Assessment and plan reviewed with Dr. James.
[2025-04-28] MEDS: 0.9% Saline Lock 10 ML Syringe IV (20:19)
[2025-04-29] VITALS (13 sets, daily range): BP systolic 143–162; BP diastolic 52–79; PULSE 77–86; RESP 16–18; TEMP 36.6–36.9; O2SAT 90–98
[2025-04-29 05:33] LABS: Hematocrit 28.5 % (40-54); Hemoglobin 9.3 g/dL (13.0-16.5); Immature Granulocytes Count 0.040 X10^3/uL (0.0-0.0); Mean Corp Hgb Conc 32.6 g/dL (32-36); Mean Corpuscular Volume 102.9 fL (80-94); Mean Platelet Vol. 10.2 fl (6.2-12.0); NRBC Flagged by Analyzer 0 % (0-5); POSITIVE DIFFERENTIAL YES; Platelet Count 137 K/mm3 (150-450); RBC Distribution Width CV 14.2 % (11.6-14.6); RBC Distribution Width SD 53.7 fl (35.1-43.9); Red Blood Count 2.77 M/mm3 (4.6-6.2); White Blood Count 8.5 K/mm3 (4.4-11.0)
[2025-04-29 06:08] LABS: Anion Gap 15 (5-15); BUN 89 mg/dL (4-19); BUN/Creat Ratio 24.4 RATIO (10-20); Calcium,Total 8.5 mg/dL (7.6-11.0); Carbon Dioxide 20.1 mmol/L (21.0-32.0); Chloride 107 mmol/L (98-108); Estimated Creatinine Clearance 15.88 ml/min (50-250); Glucose 103 mg/dL (70-99); Potassium 4.4 mmol/L (3.3-5.1)
[2025-04-29] MEDS: Heparin Injection (Vial) 5,000 UNIT/ML VIAL 5000 UNIT SC ×2 (09:31→22:37)
--- NOTE | 2025-04-29 10:28 | EX.PCM.CON.S ---
Assessment & Plan Assessment/Plan (1) Renal artery stenosis: PLAN: Plan CTA in 10/2024 reported significant bilateral renal artery stenosis. He does have CKD stage IV, does not appear to have resistant hypertension. Attempted to obtain renal artery duplex to correlate CTA results; however, due to bowel gas and enlarged renal veins likely associated to his current CHF exacerbation his renal arteries were not able to be adequately visualized. Would plan to reattempt renal artery ultrasound on an outpatient basis and can coordinate intervention on an outpatient basis as well if indicated. We discussed that as he is established with Dr. Khanna he can pursue through his office as well as an outpatient or we can see him in our office if he would rather. HPI Consult Data Date of Consult: 04/29/25 HPI Narrative HPI Narrative: EULOGIO NOGUERA, is a 84 M who is admitted with CHF exacerbation. He also has CKD stage IV and had prior CTA in 10/2024 indicating renal artery stenosis for which we are consulted. He reports he has had CKD since he was ~68 and the function has been steadily declining. He does have a history of hypertension, currently controlled on 3 agents. He has a history of significant coronary artery disease s/p CABG and PCI and SMA stenosis s/p stenting (Dr. Khanna, 01/2025). He reports no prior renal artery interventions. [facility] Medical History (Updated 04/29/25 @ 14:05 by JUAN J Redmond) Kidney disease History of Holter monitoring H/O transesophageal echocardiography (ROSI) for monitoring Multiple excoriations Anemia Pulmonary hypertension Severe sinus bradycardia CKD (chronic kidney disease) stage 3, GFR 30-59 ml/min General weakness Debility Hyperkalemia Palpitations History of edema Elevated troponin Fever Mitral valve insufficiency PAD (peripheral artery disease) Pancytopenia History of right inguinal hernia History of umbilical hernia Wears hearing aid Wears glasses Alcohol use Thyroid disease Walker as ambulation aid High cholesterol Injury of head and neck Dietary restriction History of GI bleed Hx of ulcerative colitis History of stress test History of echocardiogram History of transesophageal echocardiography (ROSI) Cardiology follow-up encounter History of atrial fibrillation Emphysema of lung Hyperlipidemia Hypertension Atrial fibrillation Hypertension Former smoker History of cardioversion (~05/09/20) Subclavian artery stenosis, left (~10/15/19) Essential hypertension Thrombocytopenia Upper GI bleed Atherosclerotic heart disease of [place] coronary artery without angina pectoris Premature atrial contractions Atrial fibrillation and flutter MCC (current) use 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 Hematemesis/vomiting blood Upper GI bleed History of coronary artery disease Thrombocytopenia Ulcerative colitis Right carotid bruit Hypercholesterolemia Home Medications ?Medication ?Instructions ?Recorded ?Last Taken ?Type ferrous sulfate 325 mg (65 mg 325 mg PO DAILY vitamin 05/28/15 12/26/24 History iron) tablet vitamin B complex 1 each PO DAILY vitamin 02/07/16 12/26/24 History aspirin 81 mg tablet,delayed 81 mg PO MO Anticoagulation 04/14/23 12/20/24 History release zinc acetate 50 mg (zinc) capsule 50 mg PO DAILY Supplement 09/29/23 12/26/24 History atorvastatin 40 mg tablet (Lipitor) 40 mg PO DAILY cholesterol #90 tabs 03/08/24 12/26/24 Rx lisinopril 20 mg tablet 20 mg PO DAILY #90 tabs 07/16/24 Unknown Rx Held on 11/08/24. Instructions: Order Changed hydralazine 50 mg tablet 100 mg (2 x 50 mg) PO BID #360 tabs 02/18/25 02/23/25 Rx amlodipine 10 mg tablet 10 mg PO DAILY #90 tabs 03/14/25 Unknown Rx Allergy/AdvReac Type Severity Reaction Status Date / Time hydrochlorothiazide Allergy Severe Rash Verified 03/03/25 11:46 furosemide (From Lasix) Allergy Severe Verified 03/03/25 11:46 Rash Itchy lovastatin (From Mevacor) Allergy Rash Verified 03/03/25 11:46 Family History Father CAD (coronary artery disease) Mother Cancer breast Surgical History S/P umbilical hernia repair, follow-up exam S/P right inguinal hernia repair History of umbilical hernia repair History of right inguinal hernia repair Hx of colonoscopy History of cardiac catheterization Hx of heart bypass surgery Hx of esophagogastroduodenoscopy Hx of CABG History of hand surgery History of vasectomy Aortocoronary bypass status (~02/12/17) Status post insertion of drug-eluting stent into right coronary artery for coronary artery disease (~04/2009) Social History adopted: No household members: spouse housing: house number of children: 2 current occupational status: retired Smoking Status: Former smoker Tobacco: How many years used: 50 (stopped about 10 yrs ago) how long ago did patient quit smokin years ago alcohol intake: current alcohol intake frequency: 3 or more drinks per day Alcohol type: beer, wine and hard liquor substance use type: does not use caffeine: Yes Type: coffee Number of servings: 2 Physical Exam Const alert, oriented x3 and no apparent distress General Appearance: cooperative HEENT normocephalic, head/scalp atraumatic and external nose normal Eyes General Eye: normal appearance of both eyes Neck General: normal visual inspection Resp normal respiratory effort and no retractions Cardio Rate: regular rate Skin no rashes or lesions noted Neuro Speech: speech normal Psych mental status grossly normal Appearance: grossly normal Lab / Micro Data 04/29/25 04:41 04/29/25 04:41 Labs: Laboratory Results - last 24 hr 04/29/25 04:41: WBC 8.5, RBC 2.77 L, Hgb 9.3 L, Hct 28.5 L, MCV 102.9 H, MCH 33.6 H, MCHC 32.6, RDW Std Deviation 53.7 H, RDW Coeff of [place]el 14.2, Plt Count 137 L, MPV 10.2, Immature Gran % (Auto) 0.500, Neut % (Auto) 86.5 H, Lymph % (Auto) 4.9 L, [place] % (Auto) 7.9, Eos % (Auto) 0.1, Baso % (Auto) 0.1, Absolute Neuts (auto) 7.4, Absolute Lymphs (auto) 0.42 L, Nucleated RBC % 0, Sodium 141, Potassium 4.4, Chloride 107, Carbon Dioxide 20.1 L, Anion Gap 15, BUN 89 H, Creatinine 3.64 H, Estim Creat Clear Calc 15.88 L, Est GFR (MDRD) Non-Af 16 L, BUN/Creatinine Ratio 24.4 H, Glucose 103 H, Calcium 8.5 Rhythm Strip Rhythm Strip: Sinus Tach Rate: 112 Ectopy: PVC(s) Charges/Coding Visit Charges Inpatient E&M: 39648 Init Hosp L1
--- NOTE | 2025-04-29 10:32 | PN.HOSP_ITS ---
Reason for Visit
--- NOTE | 2025-04-29 10:32 | PCM.PN.HOSP ---
Reason for Visit Chief Complaint: Shortness of breath Objective Data Objective Data Vital Signs: Vital Signs Temp Pulse Resp BP Pulse Ox O2 Del Method O2 Flow Rate 97.9 F 77 18 161/62 H 93 Nasal Cannula 5 04/29/25 08:45 04/29/25 09:32 04/29/25 08:45 04/29/25 09:32 04/29/25 08:45 04/29/25 10:00 04/29/25 10:00 Oxygen Flow Rate (L/min) 5 Oxygen Delivery Method Nasal Cannula Weight: 182 lb Body Mass Index (BMI) 26.1 Intake & Output: Intake and Output for Last 24 Hours 04/27/25 04/28/25 04/29/25 23:59 23:59 23:59 Intake Total 780 / 780 1060 / 1060 Output Total 550 / 550 400 / 700 475 / 475 Balance 230 / 230 660 / 360 -475 / -475 Lab / Micro Data 04/29/25 04:41 04/29/25 04:41 Labs: Laboratory Results - last 24 hr 04/29/25 04:41: WBC 8.5, RBC 2.77 L, Hgb 9.3 L, Hct 28.5 L, MCV 102.9 H, MCH 33.6 H, MCHC 32.6, RDW Std Deviation 53.7 H, RDW Coeff of Chanel 14.2, Plt Count 137 L, MPV 10.2, Immature Gran % (Auto) 0.500, Neut % (Auto) 86.5 H, Lymph % (Auto) 4.9 L, [place] % (Auto) 7.9, Eos % (Auto) 0.1, Baso % (Auto) 0.1, Absolute Neuts (auto) 7.4, Absolute Lymphs (auto) 0.42 L, Nucleated RBC % 0, Sodium 141, Potassium 4.4, Chloride 107, Carbon Dioxide 20.1 L, Anion Gap 15, BUN 89 H, Creatinine 3.64 H, Estim Creat Clear Calc 15.88 L, Est GFR (MDRD) Non-Af 16 L, BUN/Creatinine Ratio 24.4 H, Glucose 103 H, Calcium 8.5 Rhythm Strip Rhythm Strip: Sinus Tach Rate: 112 Ectopy: PVC(s) Physical Exam Narrative Seen and examined Patient is short of breath on 5 L of oxygen, it went up to 8 L. Bilateral lower extremity swelling. CTA shows bilateral renal artery stenosis Physical exam General: Alert, Oriented x3, Cooperative HEENT: Atraumatic, PERRLA, EOMI, Normocephalic. Oral: No Gingival or Mucosal Lesions/ Ulcerations Neck: Supple, No JVD, Negative Carotid Bruits Chest wall/Lungs: Air entry diminished in bilateral lung bases. No crepitation/rhonchi Cardiovascular: A-fib, Normal S1,S2, CABG scar. Abdomen: Bowel Sounds Present, Soft, Non Tender, Non-Distended : No dysuria. No renal angle tenderness. No suprapubic tenderness. Extremities: No edema, Capillary Refill Less than 3 Seconds Skin: Chronic stasis dermatitis. Bilateral leg swelling but no active seepage. Musculoskeletal: No Tenderness to Palpation of Joints or Extremities Neurological: Cranial nerves II-XII grossly intact, DTR 2+/4. No acute focal neurological deficit. Psych/Mental Status: Flat affect Assessment & Plan Assessment/Plan (1) Acute hypoxemic respiratory failure: (2) CHF exacerbation: PLAN: Plan Patient is an 84-year-old gentleman who presented with progressive shortness of breath and assessment of acute congestive heart failure made admitted to monitored bed for further management 1. Acute hypoxic respiratory failure ? Secondary to CHF. Admitted to monitored bed for treatment of the underlying clinical etiology ? 04/28/2025; patient still requiring significant amount of oxygen at rest currently on 6 L flow per minute. Patient be assessed for home oxygen prior to discharge 04/29: Between 5 to 8 L of oxygen. Bumex dose increased to 2 mg IV every 8 hourly after discussion with the lactation consultant. 2. Acute on chronic congestive heart failure with preserved ejection fraction ? Echo from 623 demonstrated EF of 60% with moderate concentric left ventricular hypertrophy with severely enlarged left atrium and severe pulmonary hypertension. Admitted to monitored bed manage with strict input and output, daily weight, furosemide with repeat echo ordered ? 04/18/2025; 2D echo did show left ventricular ejection fraction is 55 %. Mild segmental systolic dysfunction (see wall motion). Stage 3 diastolic dysfunction. Mild concentric left ventricular hypertrophy. The left atrium is moderately enlarged. The right atrium is mildly enlarged. Mild (1+) mitral valve insufficiency. Severe mitral annular calcification. Moderate (2+) tricuspid valve insufficiency. Moderate pulmonary hypertension. Patient was transition from furosemide to bumetanide given worsening kidney function. 04/29: Bumex dose increased. 3. Coronary artery disease ? With previous history of CABG and stent placement plan is to continue with guideline directed medical therapy 4. Paroxysmal A-fib ? Rate controlled not on systemic anticoagulation 5. Peripheral arterial disease ? With history of chronic mesenteric ischemia status post SMA stenting 6. Dyslipidemia ?Patient is on statin therapy, continued at home dose 7. Hypertension ? Blood pressure controlled, home medications continued with dose adjustment as needed 8. Anemia ? Secondary to chronic disorder monitoring H&H and transfuse if patient becomes symptomatic or hemoglobin falls below 7 9. History of ulcerative colitis ? Stable currently not on any chronic meds 10. Chronic kidney disease stage IV ? Patient kidney function at baseline plan is to avoid potential nephrotoxic medication. Decision was made to consult nephrology given patient worsening kidney function following initiation of diuretic therapy ? 04/28/2025; patient was seen in consultation by nephrology plan is for patient to follow-up as outpatient 04/29 due to bilateral renal artery stenosis: Vascular surgery consult reviewed. CTA November 21 shows significant bilateral renal artery stenosis. Renal artery duplex, not able to visualize renal arteries due to bowel gas and CHF. Renal artery duplex in November 21 shows celiac SMA and LELAND with severe stenosis. 11. Elevated troponin ? Secondary to demand ischemia from congestive heart failure 12. DVT prophylaxis ? Subcu heparin Laboratory Results 04/29/25 04:41: WBC 8.5, RBC 2.77 L, Hgb 9.3 L, Hct 28.5 L, MCV 102.9 H, MCH 33.6 H, MCHC 32.6, RDW Std Deviation 53.7 H, RDW Coeff of Chanel 14.2, Plt Count 137 L, MPV 10.2, Immature Gran % (Auto) 0.500, Neut % (Auto) 86.5 H, Lymph % (Auto) 4.9 L, [place] % (Auto) 7.9, Eos % (Auto) 0.1, Baso % (Auto) 0.1, Absolute Neuts (auto) 7.4, Absolute Lymphs (auto) 0.42 L, Nucleated RBC % 0, Sodium 141, Potassium 4.4, Chloride 107, Carbon Dioxide 20.1 L, Anion Gap 15, BUN 89 H, Creatinine 3.64 H, Estim Creat Clear Calc 15.88 L, Est GFR (MDRD) Non-Af 16 L, BUN/Creatinine Ratio 24.4 H, Glucose 103 H, Calcium 8.5 Clinical Impression(s) from Imaging Studies Chest X-Ray 04/26/25 12:50 IMPRESSION: Cardiac enlargement. Interstitial edema. Scant pleural fluid. Reading Location: [id number] Echocardiogram 04/26/25 13:52 Interpretation Summary The left ventricular ejection fraction is 55 %. Mild segmental systolic dysfunction (see wall motion). Stage 3 diastolic dysfunction. Mild concentric left ventricular hypertrophy. The left atrium is moderately enlarged. The right atrium is mildly enlarged. Mild (1+) mitral valve insufficiency. Severe mitral annular calcification. Moderate (2+) tricuspid valve insufficiency. Moderate pulmonary hypertension. Contrast injection was performed. Charges/Coding Visit Charges Inpatient E&M: 17663 Subs Hosp L2
--- NOTE | 2025-04-29 15:49 | PCM.PN.REN ---
Subjective Subjective still dyspneic Objective Data Objective Data Vital Signs: Vital Signs Temp Pulse Resp BP Pulse Ox O2 Del Method O2 Flow Rate 97.9 F 77 18 162/67 H 95 Nasal Cannula 8 04/29/25 14:45 04/29/25 14:45 04/29/25 14:45 04/29/25 14:45 04/29/25 14:45 04/29/25 14:45 04/29/25 14:45 Oxygen Flow Rate (L/min) 8 Oxygen Delivery Method Nasal Cannula Weight: 82.554 kg Body Mass Index (BMI) 26.1 Intake & Output: Intake and Output for Last 24 Hours 04/27/25 04/28/25 04/29/25 23:59 23:59 23:59 Intake Total 780 / 780 1060 / 1060 Output Total 550 / 550 400 / 700 475 / 475 Balance 230 / 230 660 / 360 -475 / -475 Lab / Micro Data 04/29/25 04:41 04/29/25 04:41 Labs: Laboratory Results - last 24 hr 04/29/25 04:41: WBC 8.5, RBC 2.77 L, Hgb 9.3 L, Hct 28.5 L, MCV 102.9 H, MCH 33.6 H, MCHC 32.6, RDW Std Deviation 53.7 H, RDW Coeff of Chanel 14.2, Plt Count 137 L, MPV 10.2, Immature Gran % (Auto) 0.500, Neut % (Auto) 86.5 H, Lymph % (Auto) 4.9 L, [place] % (Auto) 7.9, Eos % (Auto) 0.1, Baso % (Auto) 0.1, Absolute Neuts (auto) 7.4, Absolute Lymphs (auto) 0.42 L, Nucleated RBC % 0, Sodium 141, Potassium 4.4, Chloride 107, Carbon Dioxide 20.1 L, Anion Gap 15, BUN 89 H, Creatinine 3.64 H, Estim Creat Clear Calc 15.88 L, Est GFR (MDRD) Non-Af 16 L, BUN/Creatinine Ratio 24.4 H, Glucose 103 H, Calcium 8.5 Rhythm Strip Rhythm Strip: Sinus Tach Rate: 112 Ectopy: PVC(s) Physical Exam Narrative Alert and oriented x 3, no apparent distress S1, S2, rhythm irregular, rate controlled Diminished breath sounds with scattered rales and faint expiratory wheezing. On O2 nasal cannula 6 L Abdomen soft, nontender Trace nonpitting edema bilateral lower legs Assessment & Plan Assessment/Plan (1) Chronic kidney disease (CKD), stage 4: (2) Acute hypoxemic respiratory failure: PLAN: Plan This is an 84-year-old male with past medical history significant for coronary artery disease with stenting and CABG x 2, chronic mesenteric ischemia status post SMA stenting, paroxysmal A-fib not on anticoagulation secondary to history of acute blood loss anemia, iron deficiency anemia (followed by Dr. Mcintyre), ulcerative colitis, chronic debility, CKD stage IV, who presented to the emergency room yesterday with complaints of shortness of breath admitted for acute hypoxic respiratory failure, fluid overload secondary to acute CHF exacerbation, chest x-ray showing interstitial edema, cardiac enlargement. Nephrology consulted in view of elevated creatinine. Patient is known to our service as we have seen patient in hospital setting for MYRON on CKD. Patient has never required any renal placement therapy. Baseline creatinine has been ranging around 2.5 mg/dL but does have fluctuation in serum creatinine levels. On admission yesterday creatinine 2.4, today creatinine 2.9. Echo ordered and pending. 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 Patient is on bumetanide IV twice daily, will continue with current dose. Patient is nonoliguric. Per patient feeling better, breathing is better. Likely near baseline CKD with fluctuations in serum creatinine from cardiorenal syndrome physiology. No acute indication for NAPPER GRINDER, though patient does appear mildly hypervolemic no emergent need for renal replacement therapy, potassium and bicarb acceptable. Will check UA and urine protein creatinine ratio. In November 2022 urine protein creatinine ratio 492 mg/g. Patient had CT of abdomen and pelvis in October 2024 which did not show any hydronephrosis, mild atrophy of right and left kidney, no masses, no calculi. Blood pressures acceptable. Patient has appointment in our [place] office May 04. 04/28/2025; SCr up to 3.44 today, potassium 4.8, bicarb 20. Urine output today about a liter today. Per patient breathing somewhat improved, on O2 6 L nasal cannula improved from high flow O2. Currently on Bumex 1 mg IV twice daily. Echo 04/28: EF 55%, stage III diastolic dysfunction, mild concentric LVH, moderate pulmonary hypertension. Due to his rise in serum creatinine will back off on bumetanide to once daily. Labs ordered for morning. I did have discussion with patient today should kidney function worsen, volume status not improve he may be heading towards needing renal placement therapy. Patient voiced understanding, questions answered and patient is in agreement should he need hemodialysis. - Patient has history of chronic mesenteric ischemia followed by vascular, Dr. Khanna. Patient had CTA in October which showed bilateral critical Renal artery stenosis. Right side 80 percent and kidney is moderately atrophic, left kidney 70 percent mild atrophy. Patient had mesenteric stent with Dr Khanna January 2025. Patient may be a candidate for Renal Artery stenting, however his renal function is borderline. Without intervention patient may be heading towards needing NAPPER GRINDER which may be last intervention to avoid NAPPER GRINDER. Recommend Vascular consult. Nephrology plan reviewed with Dr. Cortez. Assessment and plan reviewed with Dr. James. 04/29/2025. Discussed about renal artery stenosis. Discussed with vascular surgery. No plans for angioplasty at this time. Unfortunately he is likely headed towards dialysis. Will aggressively attempt diuresis, if renal function worsens, he is agreeable to initiate dialysis. We went over the dialysis process, catheter placement etc. All questions answered. Increase IV Bumex.
[2025-04-29] MEDS: 0.9% Saline Lock 10 ML Syringe IV (20:31)
[2025-04-30] VITALS (9 sets, daily range): BP systolic 127–169; BP diastolic 49–79; PULSE 69–86; RESP 16–19; TEMP 36.7–37; O2SAT 93–97
[2025-04-30] MEDS: 0.9% Saline Lock 10 ML Syringe IV ×3 (04:27→21:18)
[2025-04-30 07:24] LABS: Hematocrit 27.8 % (40-54); Hemoglobin 9.3 g/dL (13.0-16.5); Immature Granulocytes Count 0.010 X10^3/uL (0.0-0.0); Mean Corp Hgb Conc 33.5 g/dL (32-36); Mean Corpuscular Volume 101.8 fL (80-94); Mean Platelet Vol. 10.2 fl (6.2-12.0); NRBC Flagged by Analyzer 0 % (0-5); POSITIVE DIFFERENTIAL YES; Platelet Count 118 K/mm3 (150-450); RBC Distribution Width CV 13.9 % (11.6-14.6); RBC Distribution Width SD 52.4 fl (35.1-43.9); Red Blood Count 2.73 M/mm3 (4.6-6.2); White Blood Count 5.9 K/mm3 (4.4-11.0)
[2025-04-30 07:53] LABS: Anion Gap 16 (5-15); BUN 98 mg/dL (4-19); BUN/Creat Ratio 26.6 RATIO (10-20); Calcium,Total 9.0 mg/dL (7.6-11.0); Carbon Dioxide 21.3 mmol/L (21.0-32.0); Chloride 104 mmol/L (98-108); Estimated Creatinine Clearance 15.70 ml/min (50-250); Glucose 102 mg/dL (70-99); Potassium 3.6 mmol/L (3.3-5.1)
[2025-04-30] MEDS: Heparin Injection (Vial) 5,000 UNIT/ML VIAL 5000 UNIT SC ×2 (09:39→21:09)
--- NOTE | 2025-04-30 15:54 | CASEMGMT ---
Social Work- SW met with pt to discuss discharge planning. SW introduced self and role; pt agreeable to meet. SW reviewed therapy recommendations and a list of SNF providers including quality and resource use data and consistent with the patient?s preferred geographic region, medical needs, and insurance network were provided from the [employer] Guide. Pt will review and make three selections; SW to follow up on Friday. SW remains available to follow. ANNE Curits
--- NOTE | 2025-04-30 18:27 | PN.HOSP_ITS ---
Reason for Visit
--- NOTE | 2025-04-30 18:27 | PCM.PN.HOSP ---
Reason for Visit Chief Complaint: Shortness of breath Objective Data Objective Data Vital Signs: Vital Signs Temp Pulse Resp BP Pulse Ox O2 Del Method O2 Flow Rate 98.5 F 79 18 148/63 H 96 Nasal Cannula 6 04/30/25 15:00 04/30/25 15:00 04/30/25 15:00 04/30/25 15:00 04/30/25 15:00 04/30/25 16:28 04/30/25 16:28 Oxygen Flow Rate (L/min) 6 Oxygen Delivery Method Nasal Cannula Weight: 182 lb Body Mass Index (BMI) 26.1 Intake & Output: Intake and Output for Last 24 Hours 04/28/25 04/29/25 04/30/25 23:59 23:59 23:59 Intake Total 1060 / 1060 720 / 920 200 / 200 Output Total 400 / 700 1425 / 1725 925 / 925 Balance 660 / 360 -705 / -805 -725 / -725 Lab / Micro Data 04/30/25 06:30 04/30/25 06:30 Labs: Laboratory Results - last 24 hr 04/30/25 06:30: WBC 5.9, RBC 2.73 L, Hgb 9.3 L, Hct 27.8 L, MCV 101.8 H, MCH 34.1 H, MCHC 33.5, RDW Std Deviation 52.4 H, RDW Coeff of Chanel 13.9, Plt Count 118 L, MPV 10.2, Immature Gran % (Auto) 0.200, Neut % (Auto) 85.1 H, Lymph % (Auto) 5.9 L, [place] % (Auto) 8.3, Eos % (Auto) 0.3, Baso % (Auto) 0.2, Absolute Neuts (auto) 5.0, Absolute Lymphs (auto) 0.35 L, Nucleated RBC % 0, Sodium 141, Potassium 3.6, Chloride 104, Carbon Dioxide 21.3, Anion Gap 16 H, BUN 98 H, Creatinine 3.68 H, Estim Creat Clear Calc 15.70 L, Est GFR (MDRD) Non-Af 16 L, BUN/Creatinine Ratio 26.6 H, Glucose 102 H, Calcium 9.0 Rhythm Strip Rhythm Strip: Sinus Tach Rate: 112 Ectopy: PVC(s) Physical Exam Narrative Seen and examined Overall slight improvement from yesterday, on 5 to 6 L of oxygen. Objectively, he looks less short of breath than yesterday. CTA shows bilateral renal artery stenosis Physical exam General: Alert, Oriented x3, Cooperative HEENT: Atraumatic, PERRLA, EOMI, Normocephalic. Oral: No Gingival or Mucosal Lesions/ Ulcerations Neck: Supple, No JVD, Negative Carotid Bruits Chest wall/Lungs: Air entry diminished in bilateral lung bases. No crepitation/rhonchi Cardiovascular: A-fib, Normal S1,S2, CABG scar. Abdomen: Bowel Sounds Present, Soft, Non Tender, Non-Distended : No dysuria. No renal angle tenderness. No suprapubic tenderness. Extremities: Mild edema, Capillary Refill Less than 3 Seconds Skin: Chronic stasis dermatitis. Bilateral leg swelling but no active seepage. Musculoskeletal: No Tenderness to Palpation of Joints or Extremities Neurological: Cranial nerves II-XII grossly intact, DTR 2+/4. No acute focal neurological deficit. Psych/Mental Status: Flat affect Assessment & Plan Assessment/Plan (1) Acute hypoxemic respiratory failure: (2) CHF exacerbation: PLAN: Plan Patient is an 84-year-old gentleman who presented with progressive shortness of breath and assessment of acute congestive heart failure made admitted to monitored bed for further management 1. Acute hypoxic respiratory failure ? Secondary to CHF. Admitted to monitored bed for treatment of the underlying clinical etiology ? 04/28/2025; patient still requiring significant amount of oxygen at rest currently on 6 L flow per minute. Patient be assessed for home oxygen prior to discharge 04/29: Between 5 to 8 L of oxygen. Bumex dose increased to 2 mg IV every 8 hourly after discussion with the toll patrolman. 04/30: 1 5 to 6 L oxygen. Not tachypneic. No dyspnea at rest. 2. Acute on chronic congestive heart failure with preserved ejection fraction ? Echo from 623 demonstrated EF of 60% with moderate concentric left ventricular hypertrophy with severely enlarged left atrium and severe pulmonary hypertension. Admitted to monitored bed manage with strict input and output, daily weight, furosemide with repeat echo ordered ? 04/18/2025; 2D echo did show left ventricular ejection fraction is 55 %. Mild segmental systolic dysfunction (see wall motion). Stage 3 diastolic dysfunction. Mild concentric left ventricular hypertrophy. The left atrium is moderately enlarged. The right atrium is mildly enlarged. Mild (1+) mitral valve insufficiency. Severe mitral annular calcification. Moderate (2+) tricuspid valve insufficiency. Moderate pulmonary hypertension. Patient was transition from furosemide to bumetanide given worsening kidney function. 04/29: Bumex dose increased. 04/30: Vascular surgery note reviewed. No plans for angioplasty. Plan for Doppler probably as an outpatient. 3. Coronary artery disease ? With previous history of CABG and stent placement plan is to continue with guideline directed medical therapy. 4. Paroxysmal A-fib ? Rate controlled not on systemic anticoagulation. 5. Peripheral arterial disease ? With history of chronic mesenteric ischemia status post SMA stenting 6. Dyslipidemia ?Patient is on statin therapy, continued at home dose 7. Hypertension ? Blood pressure controlled, home medications continued with dose adjustment as needed 8. Anemia ? Secondary to chronic disorder monitoring H&H and transfuse if patient becomes symptomatic or hemoglobin falls below 7 9. History of ulcerative colitis ? Stable currently not on any chronic meds 10. Chronic kidney disease stage IV ? Patient kidney function at baseline plan is to avoid potential nephrotoxic medication. Decision was made to consult nephrology given patient worsening kidney function following initiation of diuretic therapy ? 04/28/2025; patient was seen in consultation by nephrology plan is for patient to follow-up as outpatient 04/29 due to bilateral renal artery stenosis: Vascular surgery consult reviewed. CTA November 21 shows significant bilateral renal artery stenosis. Renal artery duplex, not able to visualize renal arteries due to bowel gas and CHF. Renal artery duplex in November 21 shows celiac SMA and LELAND with severe stenosis. 11. Elevated troponin ? Secondary to demand ischemia from congestive heart failure 12. DVT prophylaxis ? Subcu heparin Laboratory Results 04/29/25 04:41: WBC 8.5, RBC 2.77 L, Hgb 9.3 L, Hct 28.5 L, MCV 102.9 H, MCH 33.6 H, MCHC 32.6, RDW Std Deviation 53.7 H, RDW Coeff of Chanel 14.2, Plt Count 137 L, MPV 10.2, Immature Gran % (Auto) 0.500, Neut % (Auto) 86.5 H, Lymph % (Auto) 4.9 L, [place] % (Auto) 7.9, Eos % (Auto) 0.1, Baso % (Auto) 0.1, Absolute Neuts (auto) 7.4, Absolute Lymphs (auto) 0.42 L, Nucleated RBC % 0, Sodium 141, Potassium 4.4, Chloride 107, Carbon Dioxide 20.1 L, Anion Gap 15, BUN 89 H, Creatinine 3.64 H, Estim Creat Clear Calc 15.88 L, Est GFR (MDRD) Non-Af 16 L, BUN/Creatinine Ratio 24.4 H, Glucose 103 H, Calcium 8.5 Clinical Impression(s) from Imaging Studies Chest X-Ray 04/26/25 12:50 IMPRESSION: Cardiac enlargement. Interstitial edema. Scant pleural fluid. Reading Location: [id number] Echocardiogram 04/26/25 13:52 Interpretation Summary The left ventricular ejection fraction is 55 %. Mild segmental systolic dysfunction (see wall motion). Stage 3 diastolic dysfunction. Mild concentric left ventricular hypertrophy. The left atrium is moderately enlarged. The right atrium is mildly enlarged. Mild (1+) mitral valve insufficiency. Severe mitral annular calcification. Moderate (2+) tricuspid valve insufficiency. Moderate pulmonary hypertension. Contrast injection was performed. Charges/Coding Visit Charges Inpatient E&M: 97714 Subs Hosp L2 Procedures Hospitalists Procedures: 34097 Advncd Care Plan 30 Min
[2025-05-01] VITALS (8 sets, daily range): BP systolic 138–173; BP diastolic 49–65; PULSE 65–81; RESP 14–18; TEMP 36.3–36.9; O2SAT 93–98
[2025-05-01] MEDS: 0.9% Saline Lock 10 ML Syringe IV ×2 (03:40→19:58)
[2025-05-01] MEDS: Heparin Injection (Vial) 5,000 UNIT/ML VIAL 5000 UNIT SC ×2 (09:33→21:40)
--- NOTE | 2025-05-01 14:53 | PN.HOSP_ITS ---
Reason for Visit
--- NOTE | 2025-05-01 14:53 | PCM.PN.HOSP ---
Reason for Visit Chief Complaint: Shortness of breath Objective Data Objective Data Vital Signs: Vital Signs Temp Pulse Resp BP Pulse Ox O2 Del Method O2 Flow Rate 98.3 F 77 18 173/49 H 98 Nasal Cannula 6 05/01/25 14:16 05/01/25 14:16 05/01/25 14:16 05/01/25 14:16 05/01/25 14:16 05/01/25 14:16 05/01/25 14:16 Oxygen Flow Rate (L/min) 6 Oxygen Delivery Method Nasal Cannula Weight: 182 lb Body Mass Index (BMI) 26.1 Intake & Output: Intake and Output for Last 24 Hours 04/29/25 04/30/25 05/01/25 23:59 23:59 22:59 Intake Total 720 / 920 200 / 200 640 / 640 Output Total 1425 / 1725 925 / 1325 2600 / 2600 Balance -705 / -805 -725 / -1125 -1960 / -1960 Lab / Micro Data 04/30/25 06:30 04/30/25 06:30 Rhythm Strip Rhythm Strip: Sinus Tach Rate: 112 Ectopy: PVC(s) Physical Exam Narrative Seen and examined Leg swelling shortness of breath better. Still on 6 L of oxygen. No fever. CTA shows bilateral renal artery stenosis Physical exam General: Alert, Oriented x3, Cooperative HEENT: Atraumatic, PERRLA, EOMI, Normocephalic. Oral: No Gingival or Mucosal Lesions/ Ulcerations Neck: Supple, No JVD, Negative Carotid Bruits Chest wall/Lungs: Air entry diminished in bilateral lung bases. No crepitation/rhonchi Cardiovascular: A-fib, Normal S1,S2, CABG scar. Abdomen: Bowel Sounds Present, Soft, Non Tender, Non-Distended : No dysuria. No renal angle tenderness. No suprapubic tenderness. Extremities: Mild edema, Capillary Refill Less than 3 Seconds Skin: Chronic stasis dermatitis. Bilateral leg swelling, improving but no active seepage. Musculoskeletal: No Tenderness to Palpation of Joints or Extremities Neurological: Cranial nerves II-XII grossly intact, DTR 2+/4. No acute focal neurological deficit. Psych/Mental Status: Flat affect Assessment & Plan Assessment/Plan (1) Acute hypoxemic respiratory failure: (2) CHF exacerbation: PLAN: Plan Patient is an 84-year-old gentleman who presented with progressive shortness of breath and assessment of acute congestive heart failure made admitted to monitored bed for further management 1. Acute hypoxic respiratory failure ? Secondary to CHF. Admitted to monitored bed for treatment of the underlying clinical etiology ? 04/28/2025; patient still requiring significant amount of oxygen at rest currently on 6 L flow per minute. Patient be assessed for home oxygen prior to discharge 04/29: Between 5 to 8 L of oxygen. Bumex dose increased to 2 mg IV every 8 hourly after discussion with the sapphire stylus grinder. 04/30: 1 5 to 6 L oxygen. Not tachypneic. No dyspnea at rest. 05/01 no acute change. Shortness of breath objectively better. 2. Acute on chronic congestive heart failure with preserved ejection fraction ? Echo from 623 demonstrated EF of 60% with moderate concentric left ventricular hypertrophy with severely enlarged left atrium and severe pulmonary hypertension. Admitted to monitored bed manage with strict input and output, daily weight, furosemide with repeat echo ordered ? 04/18/2025; 2D echo did show left ventricular ejection fraction is 55 %. Mild segmental systolic dysfunction (see wall motion). Stage 3 diastolic dysfunction. Mild concentric left ventricular hypertrophy. The left atrium is moderately enlarged. The right atrium is mildly enlarged. Mild (1+) mitral valve insufficiency. Severe mitral annular calcification. Moderate (2+) tricuspid valve insufficiency. Moderate pulmonary hypertension. Patient was transition from furosemide to bumetanide given worsening kidney function. 04/29: Bumex dose increased. 04/30: Vascular surgery note reviewed. No plans for angioplasty. Plan for Doppler probably as an outpatient. 3. Coronary artery disease ? With previous history of CABG and stent placement plan is to continue with guideline directed medical therapy. 4. Paroxysmal A-fib ? Rate controlled not on systemic anticoagulation. 5. Peripheral arterial disease ? With history of chronic mesenteric ischemia status post SMA stenting 6. Dyslipidemia ?Patient is on statin therapy, continued at home dose 7. Hypertension ? Blood pressure controlled, home medications continued with dose adjustment as needed 03/01: Blood pressure is elevated 173/49. Patient has bilateral renal artery stenosis. 8. Anemia ? Secondary to chronic disorder monitoring H&H and transfuse if patient becomes symptomatic or hemoglobin falls below 7 9. History of ulcerative colitis ? Stable currently not on any chronic meds 10. Chronic kidney disease stage IV ? Patient kidney function at baseline plan is to avoid potential nephrotoxic medication. Decision was made to consult nephrology given patient worsening kidney function following initiation of diuretic therapy ? 04/28/2025; patient was seen in consultation by nephrology plan is for patient to follow-up as outpatient 04/29 due to bilateral renal artery stenosis: Vascular surgery consult reviewed. CTA November 21 shows significant bilateral renal artery stenosis. Renal artery duplex, not able to visualize renal arteries due to bowel gas and CHF. Renal artery duplex in November 21 shows celiac SMA and LELAND with severe stenosis. 05/01: As per sapphire stylus grinder, creatinine is gradually increasing probably heading towards dialysis 11. Elevated troponin ? Secondary to demand ischemia from congestive heart failure 12. DVT prophylaxis ? Subcu heparin Clinical Impression(s) from Imaging Studies Chest X-Ray 04/26/25 12:50 IMPRESSION: Cardiac enlargement. Interstitial edema. Scant pleural fluid. Reading Location: [id number] Echocardiogram 04/26/25 13:52 Interpretation Summary The left ventricular ejection fraction is 55 %. Mild segmental systolic dysfunction (see wall motion). Stage 3 diastolic dysfunction. Mild concentric left ventricular hypertrophy. The left atrium is moderately enlarged. The right atrium is mildly enlarged. Mild (1+) mitral valve insufficiency. Severe mitral annular calcification. Moderate (2+) tricuspid valve insufficiency. Moderate pulmonary hypertension. Contrast injection was performed. Charges/Coding Visit Charges Inpatient E&M: 29465 Subs Hosp L2
--- NOTE | 2025-05-01 16:55 | PCM.PN.REN ---
Subjective Subjective breathing better Objective Data Objective Data Vital Signs: Vital Signs Temp Pulse Resp BP Pulse Ox O2 Del Method O2 Flow Rate 98.3 F 77 18 173/49 H 98 Nasal Cannula 6 05/01/25 14:16 05/01/25 14:16 05/01/25 14:16 05/01/25 14:16 05/01/25 14:16 05/01/25 14:16 05/01/25 14:16 Oxygen Flow Rate (L/min) 6 Oxygen Delivery Method Nasal Cannula Weight: 82.554 kg Body Mass Index (BMI) 26.1 Intake & Output: Intake and Output for Last 24 Hours 04/29/25 04/30/25 05/01/25 23:59 23:59 22:59 Intake Total 720 / 920 200 / 200 640 / 640 Output Total 1425 / 1725 925 / 1325 2600 / 2600 Balance -705 / -805 -725 / -1125 -1960 / -1960 Lab / Micro Data 04/30/25 06:30 04/30/25 06:30 Rhythm Strip Rhythm Strip: Sinus Tach Rate: 112 Ectopy: PVC(s) Physical Exam Narrative Alert and oriented x 3, no apparent distress S1, S2, rhythm irregular, rate controlled Diminished breath sounds with scattered rales and faint expiratory wheezing. On O2 nasal cannula 6 L Abdomen soft, nontender Trace nonpitting edema bilateral lower legs Assessment & Plan Assessment/Plan (1) Chronic kidney disease (CKD), stage 4: (2) Acute hypoxemic respiratory failure: PLAN: Plan This is an 84-year-old male with past medical history significant for coronary artery disease with stenting and CABG x 2, chronic mesenteric ischemia status post SMA stenting, paroxysmal A-fib not on anticoagulation secondary to history of acute blood loss anemia, iron deficiency anemia (followed by Dr. Mcintyre), ulcerative colitis, chronic debility, CKD stage IV, who presented to the emergency room yesterday with complaints of shortness of breath admitted for acute hypoxic respiratory failure, fluid overload secondary to acute CHF exacerbation, chest x-ray showing interstitial edema, cardiac enlargement. Nephrology consulted in view of elevated creatinine. Patient is known to our service as we have seen patient in hospital setting for MYRON on CKD. Patient has never required any renal placement therapy. Baseline creatinine has been ranging around 2.5 mg/dL but does have fluctuation in serum creatinine levels. On admission yesterday creatinine 2.4, today creatinine 2.9. Echo ordered and pending. 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 Patient is on bumetanide IV twice daily, will continue with current dose. Patient is nonoliguric. Per patient feeling better, breathing is better. Likely near baseline CKD with fluctuations in serum creatinine from cardiorenal syndrome physiology. No acute indication for STRICKLER ATTENDANT, though patient does appear mildly hypervolemic no emergent need for renal replacement therapy, potassium and bicarb acceptable. Will check UA and urine protein creatinine ratio. In November 2022 urine protein creatinine ratio 492 mg/g. Patient had CT of abdomen and pelvis in October 2024 which did not show any hydronephrosis, mild atrophy of right and left kidney, no masses, no calculi. Blood pressures acceptable. Patient has appointment in our [place] office May 04. 04/28/2025; SCr up to 3.44 today, potassium 4.8, bicarb 20. Urine output today about a liter today. Per patient breathing somewhat improved, on O2 6 L nasal cannula improved from high flow O2. Currently on Bumex 1 mg IV twice daily. Echo 04/28: EF 55%, stage III diastolic dysfunction, mild concentric LVH, moderate pulmonary hypertension. Due to his rise in serum creatinine will back off on bumetanide to once daily. Labs ordered for morning. I did have discussion with patient today should kidney function worsen, volume status not improve he may be heading towards needing renal placement therapy. Patient voiced understanding, questions answered and patient is in agreement should he need hemodialysis. - Patient has history of chronic mesenteric ischemia followed by vascular, Dr. Khanna. Patient had CTA in October which showed bilateral critical Renal artery stenosis. Right side 80 percent and kidney is moderately atrophic, left kidney 70 percent mild atrophy. Patient had mesenteric stent with Dr Khanna January 2025. Patient may be a candidate for Renal Artery stenting, however his renal function is borderline. Without intervention patient may be heading towards needing STRICKLER ATTENDANT which may be last intervention to avoid STRICKLER ATTENDANT. Recommend Vascular consult. Nephrology plan reviewed with Dr. Cortez. Assessment and plan reviewed with Dr. James. 04/29/2025. Discussed about renal artery stenosis. Discussed with vascular surgery. No plans for angioplasty at this time. Unfortunately he is likely headed towards dialysis. Will aggressively attempt diuresis, if renal function worsens, he is agreeable to initiate dialysis. We went over the dialysis process, catheter placement etc. All questions answered. Increase IV Bumex. 05/01/25. breathing is better. urine output better. cr about the same. continue same
[2025-05-02] VITALS (9 sets, daily range): BP systolic 154–167; BP diastolic 55–82; PULSE 65–77; RESP 16–18; TEMP 36.4–36.7; O2SAT 93–98
[2025-05-02] MEDS: 0.9% Saline Lock 10 ML Syringe IV ×2 (04:32→19:45)
[2025-05-02 07:04] LABS: Anion Gap 14 (5-15); BUN 100 mg/dL (4-19); BUN/Creat Ratio 28.2 RATIO (10-20); Calcium,Total 8.4 mg/dL (7.6-11.0); Carbon Dioxide 24.5 mmol/L (21.0-32.0); Chloride 104 mmol/L (98-108); Estimated Creatinine Clearance 16.33 ml/min (50-250); Glucose 102 mg/dL (70-99); Potassium 3.1 mmol/L (3.3-5.1)
--- NOTE | 2025-05-02 07:33 | PN.HOSP_ITS ---
Reason for Visit
--- NOTE | 2025-05-02 07:33 | PCM.PN.HOSP ---
Reason for Visit Chief Complaint: Shortness of breath Subjective Subjective 10 seen breathing continues to improve. Diagnostic data reviewed significant for potassium of 3.1, creatinine is 3.54 Objective Data Objective Data Vital Signs: Vital Signs Temp Pulse Resp BP Pulse Ox O2 Del Method O2 Flow Rate 98.0 F 65 16 167/58 H 93 Nasal Cannula 5 05/02/25 04:23 05/02/25 04:23 05/02/25 04:23 05/02/25 04:23 05/02/25 04:23 05/02/25 04:23 05/02/25 04:23 Oxygen Flow Rate (L/min) 5 Oxygen Delivery Method Nasal Cannula Weight: 82.554 kg Body Mass Index (BMI) 26.1 Intake & Output: Intake and Output for Last 24 Hours 04/30/25 05/01/25 05/02/25 23:59 22:59 23:59 Intake Total 200 / 200 940 / 940 Output Total 925 / 1325 2900 / 2900 1200 / 1200 Balance -725 / -1125 -1960 / -1960 -1200 / -1200 Lab / Micro Data 04/30/25 06:30 05/02/25 06:02 Labs: Laboratory Results - last 24 hr 05/02/25 06:02: Sodium 142, Potassium 3.1 L, Chloride 104, Carbon Dioxide 24.5, Anion Gap 14, BUN 100 H, Creatinine 3.54 H, Estim Creat Clear Calc 16.33 L, Est GFR (MDRD) Non-Af 16 L, BUN/Creatinine Ratio 28.2 H, Glucose 102 H, Calcium 8.4 Rhythm Strip Rhythm Strip: Sinus Tach Rate: 112 Ectopy: PVC(s) Physical Exam Narrative GENERAL: cooperative HEENT: Atraumatic; normocephalic EYES; Anicteric, Normal Conjunctiva NECK; supple, normal thyroid, RESPIRATORY: Diminished to auscultation CARDIOVASCULAR: Regular S1 S2, GI: soft, normoactive bowel sounds, : No Renal angle tenderness; EXTREMITIES: 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 SKIN: No Rash PSYCH; Flat affect Assessment & Plan Assessment/Plan (1) Acute hypoxemic respiratory failure: (2) CHF exacerbation: PLAN: Plan Patient is an 84-year-old gentleman who presented with progressive shortness of breath and assessment of acute congestive heart failure made admitted to [facility] bed for further management 1. Acute hypoxic respiratory failure ? Secondary to CHF. Admitted to monitored bed for treatment of the underlying clinical etiology ? 04/28/2025; patient still requiring significant amount of oxygen at rest currently on 6 L flow per minute. Patient be assessed for home oxygen prior to discharge 2. Acute on chronic congestive heart failure with preserved ejection fraction ? Echo from 623 demonstrated EF of 60% with moderate concentric left ventricular hypertrophy with severely enlarged left atrium and severe pulmonary hypertension. Admitted to monitored bed manage with strict input and output, daily weight, furosemide with repeat echo ordered ? 04/18/2025; 2D echo did show left ventricular ejection fraction is 55 %. Mild segmental systolic dysfunction (see wall motion). Stage 3 diastolic dysfunction. Mild concentric left ventricular hypertrophy. The left atrium is moderately enlarged. The right atrium is mildly enlarged. Mild (1+) mitral valve insufficiency. Severe mitral annular calcification. Moderate (2+) tricuspid valve insufficiency. Moderate pulmonary hypertension. Patient was transition from furosemide to bumetanide given worsening kidney function. 3. Coronary artery disease ? With previous history of CABG and stent placement plan is to continue with guideline directed medical therapy 4. Paroxysmal A-fib ? Rate controlled not on systemic anticoagulation 5. Peripheral arterial disease ? With history of chronic mesenteric ischemia status post SMA stenting 6. Dyslipidemia ?Patient is on statin therapy, continued at home dose 7. Hypertension ? Blood pressure controlled, home medications continued with dose adjustment as needed 8. Anemia ? Secondary to chronic disorder monitoring H&H and transfuse if patient becomes symptomatic or hemoglobin falls below 7 9. History of ulcerative colitis ? Stable currently not on any chronic meds 10. Chronic kidney disease stage IV ? Patient kidney function at baseline plan is to avoid potential nephrotoxic medication. Decision was made to consult nephrology given patient worsening kidney function following initiation of diuretic therapy ? 04/28/2025; patient was seen in consultation by nephrology plan is for patient to follow-up as outpatient 11. Elevated troponin ? Secondary to demand ischemia from congestive heart failure 12. Bilateral renal artery stenosis ? CTA 11/21/2024 significant bilateral renal artery stenosis. Renal artery duplex subsequently ordered not able to visualize renal arteries due to bowel gas and CHF. RPatient is followed by vascular surgery as outpatient consult was placed to Dr. Lim notes and recommendations reviewed 13. Physical deconditioning ? Requested for PT OT eval and social science manager to assist with discharge planning 14. Hypokalemia -Corrected per protocol 15. DVT prophylaxis ? Subcu heparin Time spent in the patient's overall evaluation,decision-making process, review of diagnostic data, adjustment of management, discussion with other providers, nursing nursing and ancillary staff involved in patient's care documentation, 38 Minutes Charges/Coding Visit Charges Inpatient E&M: 60771 Subs Hosp L2
[2025-05-02] MEDS: Heparin Injection (Vial) 5,000 UNIT/ML VIAL 5000 UNIT SC ×2 (10:37→22:03)
[2025-05-02] MEDS: Potassium Chloride Oral Tablet 20 MEQ 40 MEQ PO (10:38)
--- NOTE | 2025-05-02 11:34 | PCM.PN.REN ---
Subjective Subjective Patient laying in bed. States breathing much better. Denies any complaints. Denies any shortness of breath. Objective Data Objective Data Vital Signs: Vital Signs Temp Pulse Resp BP Pulse Ox O2 Del Method O2 Flow Rate 97.6 F L 69 18 154/55 H 95 Nasal Cannula 3 05/02/25 10:32 05/02/25 10:37 05/02/25 10:32 05/02/25 10:32 05/02/25 10:32 05/02/25 10:32 05/02/25 10:32 Oxygen Flow Rate (L/min) 3 Oxygen Delivery Method Nasal Cannula Weight: 82.554 kg Body Mass Index (BMI) 26.1 Intake & Output: Intake and Output for Last 24 Hours 04/30/25 05/01/25 05/02/25 23:59 22:59 23:59 Intake Total 200 / 200 940 / 940 Output Total 925 / 1325 2900 / 2900 1200 / 1200 Balance -725 / -1125 -1960 / -1960 -1200 / -1200 Lab / Micro Data 04/30/25 06:30 05/02/25 06:02 Labs: Laboratory Results - last 24 hr 05/02/25 06:02: Sodium 142, Potassium 3.1 L, Chloride 104, Carbon Dioxide 24.5, Anion Gap 14, BUN 100 H, Creatinine 3.54 H, Estim Creat Clear Calc 16.33 L, Est GFR (MDRD) Non-Af 16 L, BUN/Creatinine Ratio 28.2 H, Glucose 102 H, Calcium 8.4 Rhythm Strip Rhythm Strip: Sinus Tach Rate: 112 Ectopy: PVC(s) Physical Exam Narrative Alert and oriented x 3, no apparent distress S1, S2, rhythm irregular, rate controlled Diminished breath sounds, no wheezes, rhonchi or rales. On O2 nasal cannula 3 L Abdomen soft, nontender No edema bilateral lower legs Assessment & Plan Assessment/Plan (1) Chronic kidney disease (CKD), stage 4: (2) Acute hypoxemic respiratory failure: PLAN: Plan This is an 84-year-old male with past medical history significant for coronary artery disease with stenting and CABG x 2, chronic mesenteric ischemia status post SMA stenting, paroxysmal A-fib not on anticoagulation secondary to history of acute blood loss anemia, iron deficiency anemia (followed by Dr. Mcintyre), ulcerative colitis, chronic debility, CKD stage IV, who presented to the emergency room yesterday with complaints of shortness of breath admitted for acute hypoxic respiratory failure, fluid overload secondary to acute CHF exacerbation, chest x-ray showing interstitial edema, cardiac enlargement. Nephrology consulted in view of elevated creatinine. Patient is known to our service as we have seen patient in hospital setting for MYRON on CKD. Patient has never required any renal placement therapy. Baseline creatinine has been ranging around 2.5 mg/dL but does have fluctuation in serum creatinine levels. On admission yesterday creatinine 2.4, today creatinine 2.9. Echo ordered and pending. 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 Patient is on bumetanide IV twice daily, will continue with current dose. Patient is nonoliguric. Per patient feeling better, breathing is better. Likely near baseline CKD with fluctuations in serum creatinine from cardiorenal syndrome physiology. No acute indication for ASSISTANT MANAGER QUALITY MANAGEMENT, though patient does appear mildly hypervolemic no emergent need for renal replacement therapy, potassium and bicarb acceptable. Will check UA and urine protein creatinine ratio. In November 2022 urine protein creatinine ratio 492 mg/g. Patient had CT of abdomen and pelvis in October 2024 which did not show any hydronephrosis, mild atrophy of right and left kidney, no masses, no calculi. Blood pressures acceptable. Patient has appointment in our [place] office May 04. 04/28/2025; SCr up to 3.44 today, potassium 4.8, bicarb 20. Urine output today about a liter today. Per patient breathing somewhat improved, on O2 6 L nasal cannula improved from high flow O2. Currently on Bumex 1 mg IV twice daily. Echo 04/28: EF 55%, stage III diastolic dysfunction, mild concentric LVH, moderate pulmonary hypertension. Due to his rise in serum creatinine will back off on bumetanide to once daily. Labs ordered for morning. I did have discussion with patient today should kidney function worsen, volume status not improve he may be heading towards needing renal placement therapy. Patient voiced understanding, questions answered and patient is in agreement should he need hemodialysis. - Patient has history of chronic mesenteric ischemia followed by vascular, Dr. Khanna. Patient had CTA in October which showed bilateral critical Renal artery stenosis. Right side 80 percent and kidney is moderately atrophic, left kidney 70 percent mild atrophy. Patient had mesenteric stent with Dr Khanna January 2025. Patient may be a candidate for Renal Artery stenting, however his renal function is borderline. Without intervention patient may be heading towards needing ASSISTANT MANAGER QUALITY MANAGEMENT which may be last intervention to avoid ASSISTANT MANAGER QUALITY MANAGEMENT. Recommend Vascular consult. Nephrology plan reviewed with Dr. Cortez. Assessment and plan reviewed with Dr. James. 04/29/2025. Discussed about renal artery stenosis. Discussed with vascular surgery. No plans for angioplasty at this time. Unfortunately he is likely headed towards dialysis. Will aggressively attempt diuresis, if renal function worsens, he is agreeable to initiate dialysis. We went over the dialysis process, catheter placement etc. All questions answered. Increase IV Bumex. 05/01/25. breathing is better. urine output better. cr about the same. continue same 05/02/2025; renal function stable, serum creatinine peaked at 3.68 (04/30/2025), today serum creatinine 3.5. Urine today so far 1.2 L. Cumulative I&O net negative 3 L. Weights down. Currently on Bumex 2 mg IV every 8 hours. Blood pressure acceptable. K+ 3.1, replace as ordered. Discharge planning in progress to ECF or TCU for therapy. No acute indication for renal placement therapy. Will give dose metolazone today. Will need to monitor renal function closely in outpatient setting. Patient was seen by vascular, no intervention planned at this time, to follow-up with either Dr. Khanna or Dr. Lim.
--- NOTE | 2025-05-02 15:03 | CASEMGMT ---
Addendum entered by Fe Cota 05/02/25 15:35: PROMISE ESTEVEZ updated by Shahnaz in TCU that there are no beds available at this time. PROMISE ESTEVEZ updated patient and is agreeable to have referral sent to [facility]. PROMISE ESTEVEZ updated DC estate planning counselor to send referral to [facility]. CM will continue to follow this patient and plan for a safe discharge. Original Note: PROMISE ESTEVEZ in to discuss discharge planning with patient. Patient states he would like to go to a SNF for skilled therapy. Patient states reviewed list and prefers 1. [facility] and 2. [facility]. Patient agreeable to have referral sent to [facility]. Patient had no further questions or concerns. PROMISE ESTEVEZ made referral to [facility], awaiting response. CM will continue to follow this patient and plan for a safe discharge.
--- NOTE | 2025-05-02 15:51 | CASEMGMT ---
Discharge Planning Referral sent via [facility] to [facility]. Tereza Browne DC Planning Asst.
[2025-05-03 03:56] VITALS: BP 158/53; PULSE 64; RESP 18; TEMP 36.6; O2SAT 97
[2025-05-03] MEDS: 0.9% Saline Lock 10 ML Syringe IV ×2 (04:03→13:07)
[2025-05-03 06:32] LABS: Hematocrit 28.7 % (40-54); Hemoglobin 9.6 g/dL (13.0-16.5); Immature Granulocytes Count 0.020 X10^3/uL (0.0-0.0); Mean Corp Hgb Conc 33.4 g/dL (32-36); Mean Corpuscular Volume 101.1 fL (80-94); Mean Platelet Vol. 9.6 fl (6.2-12.0); NRBC Flagged by Analyzer 0 % (0-5); POSITIVE DIFFERENTIAL YES; Platelet Count 127 K/mm3 (150-450); RBC Distribution Width CV 13.3 % (11.6-14.6); RBC Distribution Width SD 49.6 fl (35.1-43.9); Red Blood Count 2.84 M/mm3 (4.6-6.2); White Blood Count 4.9 K/mm3 (4.4-11.0)
[2025-05-03 06:36] VITALS: O2SAT 94
[2025-05-03 06:59] LABS: Anion Gap 13 (5-15); BUN 98 mg/dL (4-19); BUN/Creat Ratio 28.0 RATIO (10-20); Calcium,Total 8.9 mg/dL (7.6-11.0); Carbon Dioxide 28.2 mmol/L (21.0-32.0); Chloride 102 mmol/L (98-108); Estimated Creatinine Clearance 16.46 ml/min (50-250); Glucose 106 mg/dL (70-99); Magnesium 2.2 mg/dL (1.5-2.2); Potassium 3.2 mmol/L (3.3-5.1)
--- NOTE | 2025-05-03 07:46 | PN.HOSP_ITS ---
Reason for Visit
--- NOTE | 2025-05-03 07:46 | PCM.PN.HOSP ---
Reason for Visit Chief Complaint: Shortness of breath Subjective Subjective Patient seen oxygen requirement down to 2 L flow per minute. Nephrology does not plan any dialysis at this point. Awaiting insurance precertification prior to transfer to senior care facility Objective Data Objective Data Vital Signs: Vital Signs Temp Pulse Resp BP Pulse Ox O2 Del Method O2 Flow Rate 97.9 F 64 18 158/53 H 97 Nasal Cannula 2 05/03/25 03:56 05/03/25 03:56 05/03/25 03:56 05/03/25 03:56 05/03/25 03:56 05/03/25 04:49 05/03/25 04:49 Oxygen Flow Rate (L/min) 2 Oxygen Delivery Method Nasal Cannula Weight: 82.554 kg Body Mass Index (BMI) 26.1 Intake & Output: Intake and Output for Last 24 Hours 05/01/25 05/02/25 05/03/25 22:59 23:59 23:59 Intake Total 940 / 940 1420 / 1420 370 / 370 Output Total 2900 / 2900 2700 / 3400 1900 / 1900 Balance -1960 / -1960 -1280 / -1980 -1530 / -1530 Lab / Micro Data 05/03/25 06:23 05/03/25 06:23 Labs: Laboratory Results - last 24 hr 05/03/25 06:23: WBC 4.9, RBC 2.84 L, Hgb 9.6 L, Hct 28.7 L, MCV 101.1 H, MCH 33.8 H, MCHC 33.4, RDW Std Deviation 49.6 H, RDW Coeff of Chanel 13.3, Plt Count 127 L, MPV 9.6, Immature Gran % (Auto) 0.400, Neut % (Auto) 71.7 H, Lymph % (Auto) 11.5 L, [place] % (Auto) 12.3 H, Eos % (Auto) 3.9, Baso % (Auto) 0.2, Absolute Neuts (auto) 3.5, Absolute Lymphs (auto) 0.56 L, Nucleated RBC % 0, Sodium 144, Potassium 3.2 L, Chloride 102, Carbon Dioxide 28.2, Anion Gap 13, BUN 98 H, Creatinine 3.51 H, Estim Creat Clear Calc 16.46 L, Est GFR (MDRD) Non-Af 17 L, BUN/Creatinine Ratio 28.0 H, Glucose 106 H, Calcium 8.9, Phosphorus 4.3, Magnesium 2.2 Rhythm Strip Rhythm Strip: Sinus Tach Rate: 112 Ectopy: PVC(s) Physical Exam Narrative GENERAL: cooperative HEENT: Atraumatic; normocephalic EYES; Anicteric, Normal Conjunctiva NECK; supple, normal thyroid, RESPIRATORY: Diminished to auscultation CARDIOVASCULAR: Regular S1 S2, GI: soft, normoactive bowel sounds, : No Renal angle tenderness; EXTREMITIES: 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 SKIN: No Rash PSYCH; Flat affect Assessment & Plan Assessment/Plan (1) Acute hypoxemic respiratory failure: (2) CHF exacerbation: PLAN: Plan Patient is an 84-year-old gentleman who presented with progressive shortness of breath and assessment of acute congestive heart failure made admitted to monitored bed for further management 1. Acute hypoxic respiratory failure ? Secondary to CHF. Admitted to monitored bed for treatment of the underlying clinical etiology ? 04/28/2025; patient still requiring significant amount of oxygen at rest currently on 6 L flow per minute. Patient be assessed for home oxygen prior to discharge ? 05/03/2025; oxygen requirement down to 2 L flow per minute 2. Acute on chronic congestive heart failure with preserved ejection fraction ? Echo from 623 demonstrated EF of 60% with moderate concentric left ventricular hypertrophy with severely enlarged left atrium and severe pulmonary hypertension. Admitted to monitored bed manage with strict input and output, daily weight, furosemide with repeat echo ordered ? 04/18/2025; 2D echo did show left ventricular ejection fraction is 55 %. Mild segmental systolic dysfunction (see wall motion). Stage 3 diastolic dysfunction. Mild concentric left ventricular hypertrophy. The left atrium is moderately enlarged. The right atrium is mildly enlarged. Mild (1+) mitral valve insufficiency. Severe mitral annular calcification. Moderate (2+) tricuspid valve insufficiency. Moderate pulmonary hypertension. Patient was transition from furosemide to bumetanide given worsening kidney function. 3. Coronary artery disease ? With previous history of CABG and stent placement plan is to continue with guideline directed medical therapy 4. Paroxysmal A-fib ? Rate controlled not on systemic anticoagulation 5. Peripheral arterial disease ? With history of chronic mesenteric ischemia status post SMA stenting 6. Dyslipidemia ?Patient is on statin therapy, continued at home dose 7. Hypertension ? Blood pressure controlled, home medications continued with dose adjustment as needed 8. Anemia ? Secondary to chronic disorder monitoring H&H and transfuse if patient becomes symptomatic or hemoglobin falls below 7 9. History of ulcerative colitis ? Stable currently not on any chronic meds 10. Chronic kidney disease stage IV ? Patient kidney function at baseline plan is to avoid potential nephrotoxic medication. Decision was made to consult nephrology given patient worsening kidney function following initiation of diuretic therapy ? 04/28/2025; patient was seen in consultation by nephrology plan is for patient to follow-up as outpatient ? 05/03/2025; nephrology does not plan any dialysis at this point. 11. Elevated troponin ? Secondary to demand ischemia from congestive heart failure 12. Bilateral renal artery stenosis ? CTA 11/21/2024 significant bilateral renal artery stenosis. Renal artery duplex subsequently ordered not able to visualize renal arteries due to bowel gas and CHF. RPatient is followed by vascular surgery as outpatient consult was placed to Dr. Lim notes and recommendations reviewed 13. Physical deconditioning ? Requested for PT OT eval and social research assistant to assist with discharge planning ? 05/03/2025; transferred to senior care facility pending 14. Hypokalemia -Corrected per protocol 15. DVT prophylaxis ? Subcu heparin Time spent in the patient's overall evaluation,decision-making process, review of diagnostic data, adjustment of management, discussion with other providers, nursing nursing and ancillary staff involved in patient's care documentation, 36 Minutes Charges/Coding Visit Charges Inpatient E&M: 85212 Subs Hosp L2
--- NOTE | 2025-05-03 09:16 | PCM.TXEXTCAR ---
Diet Diet Order/Speech Therapy: INPATIENT Hospital Diet / Speech Therapy Order(s) 04/30/25 09:52 Diet: Cardiac - Heart Healthy DC O2, CPAP, BIPAP needs Home O2 Discharge instructions: Yes Type of respiratory needs?: Oxygen Oxygen frequency: Continuous Continuous oxygen liters per minute: 2 Therapies Physical Therapy: Eval and Treat Occupational Therapy: Eval and Treat Problem/Diagnosis (1) Acute hypoxemic respiratory failure: Status: Acute Code(s): J96.01 - Acute respiratory failure with hypoxia (2) CHF exacerbation: Status: Chronic Code(s): I50.9 - Heart failure, unspecified Plan Patient is an 84-year-old gentleman who presented with progressive shortness of breath and assessment of acute congestive heart failure made admitted to monitored bed for further management 1. Acute hypoxic respiratory failure ? Secondary to CHF. Admitted to monitored bed for treatment of the underlying clinical etiology ? 04/28/2025; patient still requiring significant amount of oxygen at rest currently on 6 L flow per minute. Patient be assessed for home oxygen prior to discharge ? 05/03/2025; oxygen requirement down to 2 L flow per minute 2. Acute on chronic congestive heart failure with preserved ejection fraction ? Echo from 623 demonstrated EF of 60% with moderate concentric left ventricular hypertrophy with severely enlarged left atrium and severe pulmonary hypertension. Admitted to monitored bed manage with strict input and output, daily weight, furosemide with repeat echo ordered ? 04/18/2025; 2D echo did show left ventricular ejection fraction is 55 %. Mild segmental systolic dysfunction (see wall motion). Stage 3 diastolic dysfunction. Mild concentric left ventricular hypertrophy. The left atrium is moderately enlarged. The right atrium is mildly enlarged. Mild (1+) mitral valve insufficiency. Severe mitral annular calcification. Moderate (2+) tricuspid valve insufficiency. Moderate pulmonary hypertension. Patient was transition from furosemide to bumetanide given worsening kidney function. 3. Coronary artery disease ? With previous history of CABG and stent placement plan is to continue with guideline directed medical therapy 4. Paroxysmal A-fib ? Rate controlled not on systemic anticoagulation 5. Peripheral arterial disease ? With history of chronic mesenteric ischemia status post SMA stenting 6. Dyslipidemia ?Patient is on statin therapy, continued at home dose 7. Hypertension ? Blood pressure controlled, home medications continued with dose adjustment as needed 8. Anemia ? Secondary to chronic disorder monitoring H&H and transfuse if patient becomes symptomatic or hemoglobin falls below 7 9. History of ulcerative colitis ? Stable currently not on any chronic meds 10. Chronic kidney disease stage IV ? Patient kidney function at baseline plan is to avoid potential nephrotoxic medication. Decision was made to consult nephrology given patient worsening kidney function following initiation of diuretic therapy ? 04/28/2025; patient was seen in consultation by nephrology plan is for patient to follow-up as outpatient ? 05/03/2025; nephrology does not plan any dialysis at this point. 11. Elevated troponin ? Secondary to demand ischemia from congestive heart failure 12. Bilateral renal artery stenosis ? CTA 11/21/2024 significant bilateral renal artery stenosis. Renal artery duplex subsequently ordered not able to visualize renal arteries due to bowel gas and CHF. RPatient is followed by vascular surgery as outpatient consult was placed to Dr. Lim notes and recommendations reviewed 13. Physical deconditioning ? Requested for PT OT eval and social science instructor to assist with discharge planning ? 05/03/2025; transferred to snf facility pending 14. Hypokalemia -Corrected per protocol 15. DVT prophylaxis ? Subcu heparin Time spent in the patient's overall evaluation,decision-making process, review of diagnostic data, adjustment of management, discussion with other providers, nursing nursing and ancillary staff involved in patient's care documentation, 36 Minutes Allergies/Procedures Done in Hospital Allergies hydrochlorothiazide Allergy (Severe, Verified 03/03/25 11:46) Rash furosemide (From Lasix) Allergy (Verified 03/03/25 11:46) Severe Rash Itchy after taking for a long period of time lovastatin (From Mevacor) Allergy (Verified 03/03/25 11:46) Rash Type of Care/Length of Stay Estimated LOS: Convalescent Care Less Than 30 days Type of Care Needed: Skilled Rehab Potential: Good Prognosis: Good Additional Orders/Day of Discharge Day of Discharge: 05/03/25 Dietary and Speech Recommendations Dietitian Recommendations/Changes: Continue Cardiac diet to manage medical conditions. Will monitor weight trends. At time of discharge recommend pt continue cardiac diet. Discharge Plan Admission Admit Date/Time: 04/26/25 13:44 Attending Provider: Vicente Cortez Primary Care Provider: Jakob Jiménez Consulting Providers: Deandre Araujo; Kvng James; Vicente Cortez; Jakob Lim; Oniel Moulton Discharge Orders/Prescriptions Prescriptions: New acetaminophen 325 mg Tablet 650 mg PO Q6H PRN PRN (Reason: Pain 1-10 Or Fever>100.7) Qty: 0 0RF bumetanide 2 mg tablet 2 mg PO BID Qty: 60 0RF Continued aspirin 81 mg tablet,delayed release (DR/EC) 81 mg PO MO zinc acetate 50 mg (zinc) capsule 50 mg PO DAILY ferrous sulfate 325 MG tablet 325 mg PO DAILY Patient Comments: Iron supplement vitamin B complex 1 EACH capsule 1 each PO DAILY Patient Comments: Vitamin supplement atorvastatin [Lipitor] 40 mg tablet 40 mg PO DAILY Qty: 90 3RF hydralazine 50 mg tablet 100 mg PO BID Qty: 360 3RF amlodipine 10 mg tablet 10 mg PO DAILY Qty: 90 3RF Discontinued lisinopril 20 mg tablet 20 mg PO DAILY Qty: 90 3RF Referrals / Follow Up: Jakob Jiménez MD [Primary Care Provider, Family Practice]
--- NOTE | 2025-05-03 09:21 | PCM.DC.SUM ---
Providers Date of Admission: 04/26/25 Date of Discharge: 05/03/25 Primary Care Physician: Dr. Jakob Jiménez MD Consultations 04/27/25 10:03 Consult: Nephrology Routine Consulting Provider: Kvng James Reason for Consult: CKD IV EMERGENT Consult: No Notified: Yes Date Notified: 04/27/25 Time Notified: 10:03 Method of Notification: Verbal 04/29/25 09:22 Consult: Vascular Surgery Routine Consulting Provider: Jakob Lim Reason for Consult: Renal Artery stenosis EMERGENT Consult: No Notified: Yes Date Notified: 04/29/25 Time Notified: 09:32 Method of Notification: Text Reason For Visit: ACUTE HYPOXIC RESP FAILURE DUE TO CHF EXACERBATION Diagnosis Discharge Diagnosis (1) Acute hypoxemic respiratory failure: Status: Acute Code(s): J96.01 - Acute respiratory failure with hypoxia (2) CHF exacerbation: Status: Chronic Code(s): I50.9 - Heart failure, unspecified Plan Patient is an 84-year-old gentleman who presented with progressive shortness of breath and assessment of acute congestive heart failure made admitted to monitored bed for further management 1. Acute hypoxic respiratory failure ? Secondary to CHF. Admitted to monitored bed for treatment of the underlying clinical etiology ? 04/28/2025; patient still requiring significant amount of oxygen at rest currently on 6 L flow per minute. Patient be assessed for home oxygen prior to discharge ? 05/03/2025; oxygen requirement down to 2 L flow per minute 2. Acute on chronic congestive heart failure with preserved ejection fraction ? Echo from 623 demonstrated EF of 60% with moderate concentric left ventricular hypertrophy with severely enlarged left atrium and severe pulmonary hypertension. Admitted to monitored bed manage with strict input and output, daily weight, furosemide with repeat echo ordered ? 04/18/2025; 2D echo did show left ventricular ejection fraction is 55 %. Mild segmental systolic dysfunction (see wall motion). Stage 3 diastolic dysfunction. Mild concentric left ventricular hypertrophy. The left atrium is moderately enlarged. The right atrium is mildly enlarged. Mild (1+) mitral valve insufficiency. Severe mitral annular calcification. Moderate (2+) tricuspid valve insufficiency. Moderate pulmonary hypertension. Patient was transition from furosemide to bumetanide given worsening kidney function. 3. Coronary artery disease ? With previous history of CABG and stent placement plan is to continue with guideline directed medical therapy 4. Paroxysmal A-fib ? Rate controlled not on systemic anticoagulation 5. Peripheral arterial disease ? With history of chronic mesenteric ischemia status post SMA stenting 6. Dyslipidemia ?Patient is on statin therapy, continued at home dose 7. Hypertension ? Blood pressure controlled, home medications continued with dose adjustment as needed 8. Anemia ? Secondary to chronic disorder monitoring H&H and transfuse if patient becomes symptomatic or hemoglobin falls below 7 9. History of ulcerative colitis ? Stable currently not on any chronic meds 10. Chronic kidney disease stage IV ? Patient kidney function at baseline plan is to avoid potential nephrotoxic medication. Decision was made to consult nephrology given patient worsening kidney function following initiation of diuretic therapy ? 04/28/2025; patient was seen in consultation by nephrology plan is for patient to follow-up as outpatient ? 05/03/2025; nephrology does not plan any dialysis at this point. 11. Elevated troponin ? Secondary to demand ischemia from congestive heart failure 12. Bilateral renal artery stenosis ? CTA 11/21/2024 significant bilateral renal artery stenosis. Renal artery duplex subsequently ordered not able to visualize renal arteries due to bowel gas and CHF. RPatient is followed by vascular surgery as outpatient consult was placed to Dr. Lim notes and recommendations reviewed 13. Physical deconditioning ? Requested for PT OT eval and social media specialist to assist with discharge planning ? 05/03/2025; transferred to snf facility pending 14. Hypokalemia -Corrected per protocol 15. DVT prophylaxis ? Subcu heparin Time spent in the patient's overall evaluation,decision-making process, review of diagnostic data, adjustment of management, discussion with other providers, nursing nursing and ancillary staff involved in patient's care documentation, 36 Minutes Medications at Discharge Home Medications ferrous sulfate 325 mg (65 mg iron) tablet 325 mg PO DAILY vitamin 05/28/15 vitamin B complex 1 each PO DAILY vitamin 02/07/16 aspirin 81 mg tablet,delayed release 81 mg PO MO Anticoagulation 04/14/23 zinc acetate 50 mg (zinc) capsule 50 mg PO DAILY Supplement 09/29/23 atorvastatin 40 mg tablet (Lipitor) 40 mg PO DAILY cholesterol #90 tabs 03/08/24 hydralazine 50 mg tablet 100 mg (2 x 50 mg) PO BID #360 tabs 02/18/25 amlodipine 10 mg tablet 10 mg PO DAILY #90 tabs 03/14/25 acetaminophen 325 mg tablet 650 mg (2 x 325 mg) PO Q6H PRN PRN Pain 1-10 Or Fever>100.7 #0 tabs 05/03/25 bumetanide 2 mg tablet 2 mg PO BID #60 tabs 05/03/25 potassium chloride 20 mEq tablet,extended release(part/cryst) 20 meq PO DAILYCM #0 tabs 05/03/25 Weight / BMI Weight Weight: 82.554 kg Body Mass Index (BMI) 26.1 ABG / Lab / Microbiology Data 05/03/25 06:23 05/03/25 06:23 Laboratory: Laboratory Results - last 24 hr 05/03/25 06:23: WBC 4.9, RBC 2.84 L, Hgb 9.6 L, Hct 28.7 L, MCV 101.1 H, MCH 33.8 H, MCHC 33.4, RDW Std Deviation 49.6 H, RDW Coeff of [place] 13.3, Plt Count 127 L, MPV 9.6, Immature Gran % (Auto) 0.400, Neut % (Auto) 71.7 H, Lymph % (Auto) 11.5 L, [place] % (Auto) 12.3 H, Eos % (Auto) 3.9, Baso % (Auto) 0.2, Absolute Neuts (auto) 3.5, Absolute Lymphs (auto) 0.56 L, Nucleated RBC % 0, Sodium 144, Potassium 3.2 L, Chloride 102, Carbon Dioxide 28.2, Anion Gap 13, BUN 98 H, Creatinine 3.51 H, Estim Creat Clear Calc 16.46 L, Est GFR (MDRD) Non-Af 17 L, BUN/Creatinine Ratio 28.0 H, Glucose 106 H, Calcium 8.9, Phosphorus 4.3, Magnesium 2.2 D/C Instructions Discharge Activity: Return to Normal Activity Call your doctor if you observe: Fever of 101 or Higher, Shortness of breath, Fainting spells and Chest pain DC O2, CPAP, BIPAP Needs Home O2 Discharge instructions: Yes Type of respiratory needs?: Oxygen Oxygen frequency: Continuous Continuous oxygen liters per minute: 2 DC home with Oxygen: Yes Home O2 MD Review: I have reviewed the oxygen testing, and the patient qualifies for home oxygen equipment and portability. The patient is mobile in the home and the community. Meaningful Use Info Meaningful Use Meaningful Use Diagnoses (Choose all that apply): CHF CHF STARR/ARB ordered at discharge?: Yes Reason STARR/ARB not ordered?: Worsening renal disease Documented LVEF (%): 55 Discharge Plan Admission Admit Date/Time: 04/26/25 13:44 Attending Provider: Vicente Cortez Primary Care Provider: Jakob Jiménez Consulting Providers: Deandre Araujo; Kvng James; Vicente Cortez; Jakob Lim; Oniel Moulton Discharge Orders/Prescriptions Prescriptions: New acetaminophen 325 mg Tablet 650 mg PO Q6H PRN PRN (Reason: Pain 1-10 Or Fever>100.7) Qty: 0 0RF bumetanide 2 mg tablet 2 mg PO BID Qty: 60 0RF potassium chloride 20 mEq Tablet,Er Particles/Crystals 20 meq PO DAILYCM Qty: 0 0RF Continued aspirin 81 mg tablet,delayed release (DR/EC) 81 mg PO MO zinc acetate 50 mg (zinc) capsule 50 mg PO DAILY ferrous sulfate 325 MG tablet 325 mg PO DAILY Patient Comments: Iron supplement vitamin B complex 1 EACH capsule 1 each PO DAILY Patient Comments: Vitamin supplement atorvastatin [Lipitor] 40 mg tablet 40 mg PO DAILY Qty: 90 3RF hydralazine 50 mg tablet 100 mg PO BID Qty: 360 3RF amlodipine 10 mg tablet 10 mg PO DAILY Qty: 90 3RF Discontinued lisinopril 20 mg tablet 20 mg PO DAILY Qty: 90 3RF Referrals / Follow Up: Jakob Jiménez MD [Primary Care Provider, [facility]] Jakob Lim MD [Med Staff - Active Staff, Vascular Surgery] - Within 2 Weeks Kvng James MD [Med Staff - Consulting, Nephrology] - Within 2 Weeks Disposition Disposition (needs filled in before D/C Order can be placed): Long Term Facility Charges/Coding Visit Charges Inpatient E&M: 01337 Disch Hosp >30min
[2025-05-03 09:27] VITALS: BP 160/73; PULSE 74; RESP 18; TEMP 36.7; O2SAT 96
[2025-05-03 09:31] VITALS: PULSE 74
[2025-05-03] MEDS: Heparin Injection (Vial) 5,000 UNIT/ML VIAL 5000 UNIT SC (09:31)
[2025-05-03] MEDS: Potassium Chloride Oral Tablet 20 MEQ 40 MEQ PO (09:32)
--- NOTE | 2025-05-03 10:16 | CASEMGMT ---
Patient was accepted to [facility] for skilled level of care and has bed available today. RN CM updated patient, patient voiced appreciation. Patient declined for RN CM to updated family as is already at [facility]. PROMISE ESTEVEZ updated hospitalist, discharge placed and discharge paperwork received. PROMISE ESTEVEZ completed 7000. PROMISE ESTEVEZ updated DC manager of financial planning to updated [facility] and setup transport.
--- NOTE | 2025-05-03 10:18 | PHA.DC_ITS ---
Pharmacy DC Med Reconciliation
--- NOTE | 2025-05-03 10:18 | PHA.DC.MR.R ---
Pharmacy [place] Med Reconciliation Pharmacy Service has performed discharge medication reconciliation for this patient. The patient's discharge medication list was reviewed for discrepancies and discrepancies were resolved. Medications at Discharge Home Medications ferrous sulfate 325 mg (65 mg iron) tablet 325 mg PO DAILY vitamin 05/28/15 vitamin B complex 1 each PO DAILY vitamin 02/07/16 aspirin 81 mg tablet,delayed release 81 mg PO MO Anticoagulation 04/14/23 zinc acetate 50 mg (zinc) capsule 50 mg PO DAILY Supplement 09/29/23 atorvastatin 40 mg tablet (Lipitor) 40 mg PO DAILY cholesterol #90 tabs 03/08/24 hydralazine 50 mg tablet 100 mg (2 x 50 mg) PO BID #360 tabs 02/18/25 amlodipine 10 mg tablet 10 mg PO DAILY #90 tabs 03/14/25 acetaminophen 325 mg tablet 650 mg (2 x 325 mg) PO Q6H PRN PRN Pain 1-10 Or Fever>100.7 #0 tabs 05/03/25 bumetanide 2 mg tablet 2 mg PO BID #60 tabs 05/03/25 potassium chloride 20 mEq tablet,extended release(part/cryst) 20 meq PO DAILYCM #0 tabs 05/03/25
--- NOTE | 2025-05-03 10:41 | EKG12_ITS ---
Test Reason : ARRYTH
--- NOTE | 2025-05-03 11:47 | CASEMGMT ---
Discharge Planning Discharge orders, signed med list, and transport time sent via [facility]. Physicians will transport pt by wheelchair at 1:30p. Nursing, RN CM, and pt updated. VM left for both of pts sons (Obed and Cam). Tereza Browne DC Planning Asst.
--- NOTE | 2025-05-03 12:26 | PCM.PN.REN ---
Subjective Subjective No new complaints Objective Data Objective Data Vital Signs: Vital Signs Temp Pulse Resp BP Pulse Ox O2 Del Method O2 Flow Rate 98.1 F 74 18 160/73 H 96 Nasal Cannula 1 05/03/25 09:27 05/03/25 09:31 05/03/25 09:27 05/03/25 09:27 05/03/25 09:27 05/03/25 10:00 05/03/25 10:00 FiO2 94 05/03/25 10:00 Oxygen Flow Rate (L/min) 1 Oxygen Delivery Method Nasal Cannula Weight: 82.554 kg Body Mass Index (BMI) 26.1 Intake & Output: Intake and Output for Last 24 Hours 05/01/25 05/02/25 05/03/25 22:59 23:59 23:59 Intake Total 940 / 940 1420 / 1420 370 / 370 Output Total 2900 / 2900 2700 / 3400 1900 / 1900 Balance -1960 / -1960 -1280 / -1980 -1530 / -1530 Lab / Micro Data 05/03/25 06:23 05/03/25 06:23 Labs: Laboratory Results - last 24 hr 05/03/25 06:23: WBC 4.9, RBC 2.84 L, Hgb 9.6 L, Hct 28.7 L, MCV 101.1 H, MCH 33.8 H, MCHC 33.4, RDW Std Deviation 49.6 H, RDW Coeff of Chanel 13.3, Plt Count 127 L, MPV 9.6, Immature Gran % (Auto) 0.400, Neut % (Auto) 71.7 H, Lymph % (Auto) 11.5 L, [place] % (Auto) 12.3 H, Eos % (Auto) 3.9, Baso % (Auto) 0.2, Absolute Neuts (auto) 3.5, Absolute Lymphs (auto) 0.56 L, Nucleated RBC % 0, Sodium 144, Potassium 3.2 L, Chloride 102, Carbon Dioxide 28.2, Anion Gap 13, BUN 98 H, Creatinine 3.51 H, Estim Creat Clear Calc 16.46 L, Est GFR (MDRD) Non-Af 17 L, BUN/Creatinine Ratio 28.0 H, Glucose 106 H, Calcium 8.9, Phosphorus 4.3, Magnesium 2.2 Rhythm Strip Rhythm Strip: Sinus Tach Rate: 112 Ectopy: PVC(s) Physical Exam Narrative Alert and oriented x 3, no apparent distress S1, S2, rhythm irregular, rate controlled Diminished breath sounds, no wheezes, rhonchi or rales. On O2 nasal cannula 3 L Abdomen soft, nontender No edema bilateral lower legs Assessment & Plan Assessment/Plan (1) Chronic kidney disease (CKD), stage 4: (2) Acute hypoxemic respiratory failure: PLAN: Plan This is an 84-year-old male with past medical history significant for coronary artery disease with stenting and CABG x 2, chronic mesenteric ischemia status post SMA stenting, paroxysmal A-fib not on anticoagulation secondary to history of acute blood loss anemia, iron deficiency anemia (followed by Dr. Mcintyre), ulcerative colitis, chronic debility, CKD stage IV, who presented to the emergency room yesterday with complaints of shortness of breath admitted for acute hypoxic respiratory failure, fluid overload secondary to acute CHF exacerbation, chest x-ray showing interstitial edema, cardiac enlargement. Nephrology consulted in view of elevated creatinine. Patient is known to our service as we have seen patient in hospital setting for MYRON on CKD. Patient has never required any renal placement therapy. Baseline creatinine has been ranging around 2.5 mg/dL but does have fluctuation in serum creatinine levels. On admission yesterday creatinine 2.4, today creatinine 2.9. Echo ordered and pending. 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 Patient is on bumetanide IV twice daily, will continue with current dose. Patient is nonoliguric. Per patient feeling better, breathing is better. Likely near baseline CKD with fluctuations in serum creatinine from cardiorenal syndrome physiology. No acute indication for ELECTRICIAN TECHNICIAN, though patient does appear mildly hypervolemic no emergent need for renal replacement therapy, potassium and bicarb acceptable. Will check UA and urine protein creatinine ratio. In November 2022 urine protein creatinine ratio 492 mg/g. Patient had CT of abdomen and pelvis in October 2024 which did not show any hydronephrosis, mild atrophy of right and left kidney, no masses, no calculi. Blood pressures acceptable. Patient has appointment in our [place] office May 04. 04/28/2025; SCr up to 3.44 today, potassium 4.8, bicarb 20. Urine output today about a liter today. Per patient breathing somewhat improved, on O2 6 L nasal cannula improved from high flow O2. Currently on Bumex 1 mg IV twice daily. Echo 04/28: EF 55%, stage III diastolic dysfunction, mild concentric LVH, moderate pulmonary hypertension. Due to his rise in serum creatinine will back off on bumetanide to once daily. Labs ordered for morning. I did have discussion with patient today should kidney function worsen, volume status not improve he may be heading towards needing renal placement therapy. Patient voiced understanding, questions answered and patient is in agreement should he need hemodialysis. - Patient has history of chronic mesenteric ischemia followed by vascular, Dr. Khanna. Patient had CTA in October which showed bilateral critical Renal artery stenosis. Right side 80 percent and kidney is moderately atrophic, left kidney 70 percent mild atrophy. Patient had mesenteric stent with Dr Khanna January 2025. Patient may be a candidate for Renal Artery stenting, however his renal function is borderline. Without intervention patient may be heading towards needing ELECTRICIAN TECHNICIAN which may be last intervention to avoid ELECTRICIAN TECHNICIAN. Recommend Vascular consult. Nephrology plan reviewed with Dr. Cortez. Assessment and plan reviewed with Dr. James. 04/29/2025. Discussed about renal artery stenosis. Discussed with vascular surgery. No plans for angioplasty at this time. Unfortunately he is likely headed towards dialysis. Will aggressively attempt diuresis, if renal function worsens, he is agreeable to initiate dialysis. We went over the dialysis process, catheter placement etc. All questions answered. Increase IV Bumex. 05/01/25. breathing is better. urine output better. cr about the same. continue same 05/02/2025; renal function stable, serum creatinine peaked at 3.68 (04/30/2025), today serum creatinine 3.5. Urine today so far 1.2 L. Cumulative I&O net negative 3 L. Weights down. Currently on Bumex 2 mg IV every 8 hours. Blood pressure acceptable. K+ 3.1, replace as ordered. Discharge planning in progress to ECF or TCU for therapy. No acute indication for renal placement therapy. Will give dose metolazone today. Will need to monitor renal function closely in outpatient setting. Patient was seen by vascular, no intervention planned at this time, to follow-up with either Dr. Khanna or Dr. Lim. 05/03/2025. Clinically stable. Discharge plans as per primary. Will arrange follow-up after discharge.
== END 2025-05-03 14:15 | disposition skilled nursing facility (03) | DRG 291 ==
LOC: ED 13:27 → PCU 15:11
PROVIDERS: Nurse Practitioner Adult Health; Admitting Provider Hospitalist; Emergency Provider Emergency Medicine; PCP Family Medicine; Visit Provider Internal Medicine
DX: I13.0 Hypertensive heart and chronic kidney disease with heart failure and stage 1 through stage 4 chronic kidney disease, or unspecified chronic kidney disease (principal); J96.01 Acute respiratory failure with hypoxia; I50.33 Acute on chronic diastolic (congestive) heart failure; K55.1 Chronic vascular disorders of intestine; I24.89 Other forms of acute ischemic heart disease; N18.4 Chronic kidney disease, stage 4 (severe); K51.90 Ulcerative colitis, unspecified, without complications; D63.8 Anemia in other chronic diseases classified elsewhere; Z66 Do not resuscitate; I27.29 Other secondary pulmonary hypertension; I34.0 Nonrheumatic mitral (valve) insufficiency; I48.0 Paroxysmal atrial fibrillation; I73.9 Peripheral vascular disease, unspecified; E78.5 Hyperlipidemia, unspecified; I25.10 Atherosclerotic heart disease of native coronary artery without angina pectoris; D50.9 Iron deficiency anemia, unspecified; I87.2 Venous insufficiency (chronic) (peripheral); I70.1 Atherosclerosis of renal artery; E87.6 Hypokalemia; N26.1 Atrophy of kidney (terminal); I49.3 Ventricular premature depolarization; R53.81 Other malaise; Z79.82 Long term (current) use of aspirin; Z95.1 Presence of aortocoronary bypass graft; Z87.19 Personal history of other diseases of the digestive system; Z79.899 Other long term (current) drug therapy; Z87.891 Personal history of nicotine dependence; Z91.148 Patient's other noncompliance with medication regimen for other reason; Z95.828 Presence of other vascular implants and grafts
CPT/HCPCS: 36415; 71045; 80048; 80061; 81001; 82570; 83036; 83735; 83880; 84100; 84156; 84484; 85025; 85027; 93005; 93306; 94668; 94762; 97110; 97116; 97162; 97166; 97530; 97535; 99285; Q9957; A4216; C8929

== ENCOUNTER 2025-05-11 09:00 | Emergency (ER) | payer MEDICARE, OTHER, SELFPAY ==
[2025-05-11 09:02] VITALS: BP 156/80; PULSE 62; RESP 16; TEMP 36.5; O2SAT 100; BMI 25.5
--- NOTE | 2025-05-11 09:28 | US_ITS ---
PROCEDURE: KIDNEY AND BLADDER 05/11/2025 REASON FOR EXAM: WORSENING RENAL FUNCTION TECHNIQUE: Procedure Code: USKI Modality: US Procedure: KIDNEY AND BLADDER COMPARISON: Prior examination dated September 03, 2023. FINDINGS: Kidneys: Normal renal sizes, parenchymal thicknesses, and echotextures. [place]: No evidence of hydronephrosis. Cysts or Masses: Multiple cysts are seen in both kidneys. The largest cyst in the right kidney measures 4.7 cm 4.8 cm 3.6 cm. The largest cyst in the left kidney measures 4.1 cm 4.2 cm 4 cm. Other: Tiny bilateral nonobstructive intrarenal calculi. RIGHT Kidney Size: 11.5 cm x 5.5 cm x 4.4 cm Cortical Thickness (if discernible): 12 mm (>6mm is normal) LEFT Kidney Size: 12.2 cm x 5.1 cm x 6.1 cm Cortical Thickness (if discernible): 18 mm (>6mm is normal) The bladder wall is thickened measuring 8 mm. US/Kidney and Bladder IMPRESSION: Bilateral renal cysts. Tiny bilateral nonobstructive intrarenal calculi. Bladder wall thickening. No evidence of hydronephrosis. Reading Location: [place] [id number]
--- NOTE | 2025-05-11 09:30 | EX.ED.DYSGE1 ---
HPI History of Present Illness Chief Complaint: Abn Labs Narrative Narrative: Patient is 84-year-old male with past medical history of chronic kidney disease, hyperkalemia, peripheral arterial disease, alcohol use, hypercholesterolemia, hyperlipidemia, atrial fibrillation, thrombocytopenia, upper GI bleed who presented to the emergency department with a chief complaint of abnormal blood work. According the patient he had routine blood work obtained and was ultimately sent here to the emergency department for further evaluation management. He states that he is not on dialysis and notes that overall he feels well and has no specific complaints at this point in time. [facility] Medical History Kidney disease History of Holter monitoring H/O transesophageal echocardiography (ROSI) for monitoring Multiple excoriations Anemia Pulmonary hypertension Severe sinus bradycardia CKD (chronic kidney disease) stage 3, GFR 30-59 ml/min General weakness Debility Hyperkalemia Palpitations History of edema Elevated troponin Fever Mitral valve insufficiency PAD (peripheral artery disease) Pancytopenia History of right inguinal hernia History of umbilical hernia Wears hearing aid Wears glasses Alcohol use Thyroid disease Walker as ambulation aid High cholesterol Injury of head and neck Dietary restriction History of GI bleed Hx of ulcerative colitis History of stress test History of echocardiogram History of transesophageal echocardiography (ROSI) Cardiology follow-up encounter History of atrial fibrillation Emphysema of lung Hyperlipidemia Hypertension Atrial fibrillation Hypertension Former smoker History of cardioversion (~05/09/20) Subclavian artery stenosis, left (~10/15/19) Essential hypertension Thrombocytopenia Upper GI bleed Atherosclerotic heart disease of [place] coronary artery without angina pectoris Premature atrial contractions Atrial fibrillation and flutter [facility] (current) use 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 Hematemesis/vomiting blood Upper GI bleed History of coronary artery disease Thrombocytopenia Ulcerative colitis Right carotid bruit Hypercholesterolemia Home Medications Medication Instructions Recorded Last Taken Type ferrous sulfate 325 mg (65 mg 325 mg PO DAILY vitamin 05/28/15 12/26/24 History iron) tablet vitamin B complex 1 each PO DAILY vitamin 02/07/16 12/26/24 History aspirin 81 mg tablet,delayed 81 mg PO MO Anticoagulation 04/14/23 12/20/24 History release zinc acetate 50 mg (zinc) capsule 50 mg PO DAILY Supplement 09/29/23 12/26/24 History atorvastatin 40 mg tablet (Lipitor) 40 mg PO DAILY cholesterol #90 tabs 03/08/24 12/26/24 Rx hydralazine 50 mg tablet 100 mg (2 x 50 mg) PO BID #360 tabs 02/18/25 02/23/25 Rx amlodipine 10 mg tablet 10 mg PO DAILY #90 tabs 03/14/25 Unknown Rx acetaminophen 325 mg tablet 650 mg (2 x 325 mg) PO Q6H PRN PRN 05/03/25 Unknown Rx Pain 1-10 Or Fever>100.7 #0 tabs bumetanide 2 mg tablet 2 mg PO BID #60 tabs 05/03/25 Unknown Rx potassium chloride 20 mEq 20 meq PO DAILYCM #0 tabs 05/03/25 Unknown Rx tablet,extended release(part/cryst) Allergy/AdvReac Type Severity Reaction Status Date / Time hydrochlorothiazide Allergy Severe Rash Verified 03/03/25 11:46 furosemide (From Lasix) Allergy "Severe Verified 03/03/25 11:46 Rash" "Itchy" lovastatin (From Mevacor) Allergy Rash Verified 03/03/25 11:46 Family History Father CAD (coronary artery disease) Mother Cancer breast Surgical History History of coronary artery stent placement S/P umbilical hernia repair, follow-up exam S/P right inguinal hernia repair History of umbilical hernia repair History of right inguinal hernia repair Hx of colonoscopy History of cardiac catheterization Hx of heart bypass surgery Hx of esophagogastroduodenoscopy Hx of CABG History of hand surgery History of vasectomy Aortocoronary bypass status (~02/12/17) Status post insertion of drug-eluting stent into right coronary artery for coronary artery disease (~04/2009) Social History adopted: No household members: spouse housing: house number of children: 2 current occupational status: retired Smoking Status: Former smoker Tobacco: How many years used: 50 (stopped about 10 yrs ago) how long ago did patient quit smokin years ago alcohol intake: current alcohol intake frequency: 3 or more drinks per day Alcohol type: beer, wine and hard liquor substance use type: does not use caffeine: Yes Type: coffee Number of servings: 2 ROS ROS ED ROS Narrative Constitutional: Denies any fevers, chills, headaches Eyes: Denies any changes vision double vision blurry vision Cardiovascular: Denies chest pain Respiratory: Denies shortness of breath Abdomen: Denies abdominal pain nausea vomiting diarrhea, denies black stools : Denies any urinary symptoms states that he is urinating normally formed self Neurological: Denies any numbness, weakness, tingling Musculoskeletal: Denies back pain Skin: Denies any rashes or lesions EXAM Physical Exam Narrative Exam Narrative: General: Patient lying in bed rest comfortably did not appear to be in acute distress Head: Atraumatic, normocephalic Eyes: PERRL bilaterally, EOMI bilaterally, no conjunctival injection noted Neck: Soft, supple, trachea midline Cardiovascular: Regular rate and rhythm Respiratory: Clear to auscultation bilaterally Abdomen: Soft, nondistended, no tenderness to palpation Extremities: +5/5 strength in the bilateral lower extremities, radial pulses +2/4 in the bilateral extremities no pedal edema on exam Neurological: Patient following commands knew that he was at [facility] year is 2024 Skin: Chronic skin changes noted to bilateral lower extremities dry skin noted Const Vital Signs: 05/11/25 09:02 05/11/25 11:01 05/11/25 13:00 Temperature 97.7 F L Temperature Source Oral Pulse Rate 62 54 L 63 Respiratory Rate 16 20 H 18 Blood Pressure 156/80 H 153/52 H 176/53 H Blood Pressure Mean 105 85 94 Pulse Ox 100 98 99 Oxygen Delivery Method Room Air Room Air MDM MDM MDM Narrative Medical decision making narrative: Patient is a 84-year-old male who presented to the emergency department with a chief complaint of abnormal blood work. On the differential diagnose includes but limited to postobstructive uropathy, MYRON, worsening chronic kidney disease, GI bleed although have low suspicion for this. Once workup is obtained reviewed he will be reevaluated. Patient's CBC reviewed and showed a white blood cell is normal at 7, hemoglobin is stable 11.5, patient's MCV was noted be 99.4, platelet count of 149. Patient sodium normal 140, [place] 4.1, BUN elevated to 103 with a creatinine of 3.65, AST and ALT are 17 and 18 respectively. Patient lipase was 84. Renal ultrasound was reviewed which showed bilateral renal cyst tiny bilateral nonobstructing internal calculi bladder wall thickening no evidence of hydronephrosis. At this point in time given his worsening renal status will discuss case with hospitalist for admission for nephrology to evaluate with his change in his BUN. Discussed case with hospitalist Dr. Sheehan who requested I speak with his senior oracle pl sql developer to see if they feel that he needs admitted. I reached out to nephrology Dr. James who chart reviewed the patient and states that we can cut his Bumex in half from 2 mg twice a day to 1 mg twice a day and he can follow-up in the outpatient setting. I discussed this plan with the patient he is agreeable all question concerns answered he is discharged back to the facility in stable condition Lab Data Labs: Laboratory Results - last 24 hr 05/11/25 09:28 WBC 7.0 RBC 3.35 L Hgb 11.5 L Hct 33.3 L MCV 99.4 H MCH 34.3 H MCHC 34.5 RDW Std Deviation 48.3 H RDW Coeff of Chanel 13.2 Plt Count 149 L MPV 9.2 Immature Gran % (Auto) 0.100 Neut % (Auto) 73.0 H Lymph % (Auto) 12.1 L [place] % (Auto) 9.0 Eos % (Auto) 5.1 H Baso % (Auto) 0.7 Absolute Neuts (auto) 5.1 Absolute Lymphs (auto) 0.85 Nucleated RBC % 0 Sodium 140 Potassium 4.1 Chloride 98 Carbon Dioxide 28.1 Anion Gap 14 BUN 103 H* Creatinine 3.65 H Estim Creat Clear Calc 15.83 L Est GFR (MDRD) Non-Af 16 L BUN/Creatinine Ratio 28.2 H Glucose 131 H Calcium 9.4 Total Bilirubin 0.38 AST 17 ALT 18 Alkaline Phosphatase 81 Total Protein 6.6 Albumin 4.2 Globulin 2.4 Albumin/Globulin Ratio 1.8 Lipase 84 H Radiography Diagnostic Testing: Clinical Impression(s) from Imaging Studies Renal Ultrasound 05/11/25 09:28 IMPRESSION: Bilateral renal cysts. Tiny bilateral nonobstructive intrarenal calculi. Bladder wall thickening. No evidence of hydronephrosis. Reading Location: [place] [id number] Discharge Plan Triage Chief Complaint: Abn Labs ED Provider: Leo Shen Dx/Rx/DC Orders Clinical Impression: Chronic kidney disease, Abnormal laboratory test, Hypothyroidism, Hyperlipidemia, Atrial fibrillation Prescriptions: No Action aspirin 81 mg tablet,delayed release (DR/EC) 81 mg PO MO zinc acetate 50 mg (zinc) capsule 50 mg PO DAILY ferrous sulfate 325 MG tablet 325 mg PO DAILY Patient Comments: Iron supplement vitamin B complex 1 EACH capsule 1 each PO DAILY Patient Comments: Vitamin supplement acetaminophen 325 mg Tablet 650 mg PO Q6H PRN PRN (Reason: Pain 1-10 Or Fever>100.7) Qty: 0 0RF bumetanide 2 mg tablet 2 mg PO BID Qty: 60 0RF potassium chloride 20 mEq Tablet,Er Particles/Crystals 20 meq PO DAILYCM Qty: 0 0RF atorvastatin [Lipitor] 40 mg tablet 40 mg PO DAILY Qty: 90 3RF hydralazine 50 mg tablet 100 mg PO BID Qty: 360 3RF amlodipine 10 mg tablet 10 mg PO DAILY Qty: 90 3RF Primary Care Provider: Jakob Jiménez Referrals: Jakob Jiménez MD [Primary Care Provider, Family Practice] Activity Restrictions/Additional Instructions: I spoke with your senior oracle pl sql developer Dr. James who states that we should cut your Bumex in half from 2 mg twice a day to 1 mg twice a day and follow-up with him in the outpatient setting. Return with worsening symptoms or other concerns Print Language: Par[place] Disposition Disposition: Home, Self Care D/C Safety Score for UGIB Assessment Luther-Blatchford Bleeding Score (GBS): Stratifies upper GI bleeding patients who are "low-risk" and candidates for outpatient management. Sex: Male Hemoglobin, BUN, Recent Vital Signs: Hgb 11.5 g/dL (13.0-16.5) L 05/11/25 09:28 BUN 103 mg/dL (4-19) H* 05/11/25 09:28 Pulse Rate 63 Blood Pressure 176/53 Total Risk Score: 3 Score Interpretation: Score of 0: A GBS of 0 is a “Low Risk” GI bleed, and is highly sensitive (99.6% in a 2007 retrospective study) for predicting which patients did not require any “medical intervention”: blood transfusion, endoscopy, or surgery. This was confirmed in a 2009 Lanc study where patients with a score of 0 were actually discharged and had no GI bleeding mortality at 6 month followup Score above 0: A GBS greater than zero suggests a “High Risk” GI bleed that is likely to require “medical intervention”: transfusion, endoscopy, or surgery. A higher GBS also correlated with a higher likelihood of needing intervention Scores >/= 6 are associated with >50% risk of needing intervention D/C Safety Score for LGIB Assessment Assessment Tool: Readmission and adverse event risk in patients with acute lower GI bleeding. Age, in years: >/= 70 Sex: Male Hemoglobin and Recent Vital Signs: Hgb 11.5 g/dL (13.0-16.5) L 05/11/25 09:28 Pulse Rate 63 05/11/25 13:00 Blood Pressure 176/53 05/11/25 13:00 Probability of safe discharge: 98% Total Risk Score: 3 Score Interpretation: Probability Percentage of safe discharge (absence of rebleeding, blood transfusion, therapeutic intervention, 28 day readmission, or ) Score of 8 or below: Consider discharge, with appropriate precautions. Score of 9 or above: Discharge NOT recommended. Consider admission with further workup and resuscitation as necessary.
[2025-05-11 09:37] LABS: Hematocrit 33.3 % (40-54); Hemoglobin 11.5 g/dL (13.0-16.5); Immature Granulocytes Count 0.010 X10^3/uL (0.0-0.0); Mean Corp Hgb Conc 34.5 g/dL (32-36); Mean Corpuscular Volume 99.4 fL (80-94); Mean Platelet Vol. 9.2 fl (6.2-12.0); NRBC Flagged by Analyzer 0 % (0-5); Platelet Count 149 K/mm3 (150-450); RBC Distribution Width CV 13.2 % (11.6-14.6); RBC Distribution Width SD 48.3 fl (35.1-43.9); Red Blood Count 3.35 M/mm3 (4.6-6.2); White Blood Count 7.0 K/mm3 (4.4-11.0)
[2025-05-11 10:00] LABS: AST(SGOT) 17 U/L (<=37); Alanine Aminotransfer ALT/SGPT 18 U/L (<=46); Albumin, Serum 4.2 g/dL (3.4-4.8); Alkaline Phosphatase 81 U/L (40-129); Anion Gap 14 (5-15); BUN 103 mg/dL (4-19); BUN/Creat Ratio 28.2 RATIO (10-20); Calcium,Total 9.4 mg/dL (7.6-11.0); Carbon Dioxide 28.1 mmol/L (21.0-32.0); Chloride 98 mmol/L (98-108); Estimated Creatinine Clearance 15.83 ml/min (50-250); Globulin 2.4 g/dL (2.2-4.2); Glucose 131 mg/dL (70-99); Lipase 84 U/L (13-75); Potassium 4.1 mmol/L (3.3-5.1)
[2025-05-11] MEDS: 0.9% Normal Saline (1000mL) 1,000 ML 999 ML IV (10:15)
[2025-05-11 11:01] VITALS: BP 153/52; PULSE 54; RESP 20; O2SAT 98
[2025-05-11 13:00] VITALS: BP 176/53; PULSE 63; RESP 18; O2SAT 99
[2025-05-11 14:22] VITALS: BP 177/63; PULSE 62; RESP 18; TEMP 36.4; O2SAT 98
== END 2025-05-11 14:49 | disposition home or self-care (01) ==
PROVIDERS: Emergency Provider Emergency Medicine; PCP Family Medicine; Visit Provider Emergency Medicine
DX: N18.30 Chronic kidney disease, stage 3 unspecified (principal); I48.91 Unspecified atrial fibrillation; E87.5 Hyperkalemia; I73.9 Peripheral vascular disease, unspecified; E78.00 Pure hypercholesterolemia, unspecified; D69.6 Thrombocytopenia, unspecified; I34.0 Nonrheumatic mitral (valve) insufficiency; I12.9 Hypertensive chronic kidney disease with stage 1 through stage 4 chronic kidney disease, or unspecified chronic kidney disease; N21.0 Calculus in bladder; N28.1 Cyst of kidney, acquired; E03.9 Hypothyroidism, unspecified; I25.10 Atherosclerotic heart disease of native coronary artery without angina pectoris; Z79.899 Other long term (current) drug therapy; Z87.19 Personal history of other diseases of the digestive system; Z79.82 Long term (current) use of aspirin; Z95.1 Presence of aortocoronary bypass graft; Z87.891 Personal history of nicotine dependence
CPT/HCPCS: 76770; 80053; 83690; 85025; 96360; 96361; 99285

== ENCOUNTER 2025-05-19 04:54 | Inpatient (IN) | payer MEDICARE, OTHER, SELFPAY ==
[2025-05-19] VITALS (8 sets, daily range): BP systolic 111–136; BP diastolic 60–72; PULSE 70–98; RESP 18–24; TEMP 36.4; O2SAT 92–97; BMI 23.8
--- OUTSIDE RECORDS SUMMARY | 2025-05-19 05:54 | XMS RPT_ITS | CCD ---
Author Organization [facility] Care Team Providers Care Saddle And Side Wire Stitcher Name Role Phone Unavailable Primary Care Provider Unavailabl e Dr. Rosa Maria Santacruz Primary Care Provider Dr. Rosa Maria Santacruz Referring Provider Dr. Mathieu Mcintyre Attending Provider 1([facility])[phone] Rosa Maria Santacruz Primary Care Provider Dr. Rosa Maria Santacruz Referring Provider 1([facility])[phone] JUAN J Elizondo Attending Provider Dr. Rosa Maria Santacruz Primary Care Provider 1([facility])[phone] Dr. Rosa Maria Santacruz Referring Provider JUAN J Elizondo Attending Provider Dr. Lupe Joe Emergency Provider 1([facility])[phone] Jakob Alexander Admit Provider Dr. Jakob Alexander Attending Provider 1([facility])[phone] Jakob Alexander Other Provider Dr. Odette Harman Attending Provider 1([facility])[phone] Sammie Castaneda Attending Provider Dr. Sammie Castaneda Other Provider Dr. Kvng James Other Provider 1([facility])[phone] Dr. Jesu Hale Chi Admit Provider Dr. Jseu Hale Chi Other Provider Dr. Socorro Oliveros Other Provider Friend, Dr. Villatoro Attending Provider 1([facility])[phone] Dr. Rosa Maria Santacruz Primary Care Provider Dr. Rosa Maria Santacruz Referring Provider Donn ARITA, PA Teresa Adame Attending Provider Dr. Lupe Joe Emergency Provider Benjamin, Dr. Robert Admit Provider Dr. Jakob Alexander Attending Provider Benjamin, Dr. Robert Other Provider Dr. Odette Harman Attending Provider Leonel, Dr. Cochran Attending Provider Leonel, Dr. Cochran Other Provider Dr. Kvng James Other Provider Geoffrey, Dr. Jesu Forbes Admit Provider Geoffrey, Dr. Jesu Forbes Other Provider Dr. Socorro Oliveros Other Provider Friend, Dr. Villatoro Attending Provider ELIDA BORGES Primary Care Unavailable SERGIO SOFIA Referring Unavailable MoodElida oneal Primary Care Provider LEOBARDO, ELIDA F Primary Care Unavailable JOÃO SALES Consulting Unavailable JACOB SANCHEZ Attending UnavailBING Verdugo Admitting Unavailable MOODISPAW, ELIDA F Primary Care Unavailable AZUCENA VO Attending Unavailable [facility] Referring Un available Dr. Jesu Hale Chi Referring Provider Friend, Dr. Villatoro Referring Provider [phone] Mina BEADING INSTALLER, BEADING INSTALLER-C Honey Attending Provider Dr. Paco Castillo Primary Care Provider Dr. Paco Norman Attending Provider Julian BEADING INSTALLER, BEADING INSTALLER-C Karey Attending Provider Dr. Rosa Maria Santacruz Primary Care Provider Dr. Rosa Maria Santacruz Referring Provider Mina BEADING INSTALLER, BEADING INSTALLER-C Honey Attending Provider [place]v Dr. Paco Membreno Referring Provider [phone] Francisco Javier, Dr. Murdock Attending Provider Dr. Rosa Maria Santacruz Referring Provider Julian BEADING INSTALLER, BEADING INSTALLER-C Karey Attending Provider Dr. Paco Norman Primary Care Provider [phone] Dr. Paco Norman Referring Provider [phone] Francisco Javier, Dr. Murdock Attending Provider [phone] JUAN J Walden Attending Provider [phone] Dr. Rosa Maria Santacruz Primary Care Provider Dr. Jakob Lim Attending Provider [phone] Dr. Paco Norman Primary Care Provider [phone] Dr. Paco Norman Primary Care Provider [phone] Dr. Paco Norman Referring Provider [phone] Francisco Javier, Dr. Murdock Attending Provider [phone] JUAN J Walden [...] Other Provider Dr. Kvng James Other Provider Dr. Lakshmi Carpenter Attending Provider Korcrissy, Dr. Priya Bowen Attending Provider Sissy, Dr. Priya Bowen Other Provider Dr. William Dawson Other Provider Dr. Robby Lai Other Provider Dr. Daniel Jimenez Other Provider Unavailable Franc, Dr. Hooper Other Provider Unavailab cole Menendez BEADING INSTALLER, BEADING INSTALLER-C Tierney Other Provider Dr. William Dawson Attending Provider 1([facility])[phone] Friend, Dr. iVllatoro Attending Provider 1([facility])[phone] Dr. Robby Lai Attending Provider 1([facility])[phone] PHYSICIAN, NONE Attending Unavailable PHYSICIAN, NONE Primary Care Unavailable Dr. Priya Sheehan Referring Provider 1([facility])[phone] Dr. Paco Norman Referring Provider 1([facility])[phone] Dr. Mathieu Mcintyre Attending Provider 1([facility])[phone] Rosa Maria Santacruz S Primary Care Provider 1([facility])[phone] Dr. Jakob Lim Attending Provider 1([facility])[phone] JUAN J Walden Referring Provider 1([facility])[phone] JUAN J Walden Attending Provider 1([facility])[phone] Rosa Maria Santacruz Referring Provider 1([facility])[phone] Dr. Jakob Nowak Emergency Provider 1([facility])[phone] Dr. Oniel Moulton Admit Provider 1([facility])[phone] Oniel Moulton Attending Provider Dr. Oniel Moulton Other Provider 1([facility])[phone] Lakshmi Carpenter Other Provider Dr. Kvng James Other Provider 1([facility])[phone] Dr. Lakshmi Carpenter Attending Provider 1([facility])[phone] Korcrissy, Dr. Priya Bowen Attending Provider Dr. Priya Sheehan Other Provider Dr. William Dawson Other Provider Dr. Robby Lai Other Provider Dr. Daniel Jimenez Other Provider Unavailable Dr. Rufus Bruner Other Provider Unavailab Floyd BEADING INSTALLER, BEADING INSTALLER-C Tierney Other Provider Dr. Priya Sheehan Referring Provider Dr. William Dawson Attending Provider Carlos Manuel, Dr. Villatoro Attending Provider Dr. Robby Lai Attending Provider 1([facility])[phone] Mathieu Mcintyre Attending Provider Dr. Odette Harman Attending Provider Kimani, Dr. Pino Referring Provider Dr. Rosa Maria Santacruz Primary Care Provider Dr. Rosa Maria Santacruz Referring Provider Dr. Mathieu Mcintyre Attending Provider Carlos Manuel, Dr. Villatoro Attending Provider Julian BEADING INSTALLER, BEADING INSTALLER-C Karey Attending Provider Neeta WATSON, Dr. Rosa Maria Iverson Primary Care Provider Neeta WATSON, Dr. Rosa Maria Iverson Attending Provider Dr. Rosa Maria Santacruz MD Referring Provider Dayne Caraballo Attending Provider Dr. Singh Amaya MD Attending Provider Dr. Singh Amaya MD Referring Provider Dayne Caraballo Other Provider Francisco Javier WATSON, Dr. Murdock Attending Provider Dr. Mathieu Mcitnyre MD Referring Provider Dr. Oniel Moulton MD Other Provider Armando WATSON, Dr. Mack Referring Provider Armando WATSON, Dr. Mack Emergency Provider Armando WATSON, Dr. Mack Attending Provider Ching WATSON, Dr. Robert Primary Care Provider Ching WATSON, Dr. Robert Attending Provider Ching WATSON, Dr. Robert Referring Provider Chasidy WATSON, Dr. Clayton Attending Provider Neeta WATSON, Dr. Rosa Maria Iverson Primary Care Provider Neeta WATSON, Dr. Rosa Maria Iverson Attending Provider Neeta WATSON, Dr. Rosa Maria Iverson Referring Provider Dayne Caraballo Attending Provider Monique WATSON, Dr. Singh Brenner Attending Provider Monique WATSON, Dr. Singh Brenner Referring Provider Dayne Caraballo Other Provider Francisco Javier WATSON, Dr. Murdock Attending Provider Francisco Javier WATSON, Dr. Murdock Referring Provider Kenney WATSON, Dr. Engle Other Provider Armando WATSON, Dr. Mack Attending Provider Armando WATSON, Dr. Mack Referring Provider Armando WATSON, Dr. Mack Emergency Provider Ching WATSON, Dr. Robert Primary Care Provider Ching WATSON, Dr. Robert Attending Provider Ching WATSON, Dr. Robert Referring Provider [phone] Chasidy WATSON, Dr. Clayton Attending Provider [phone] Chloé WATSON, Dr. García Attending Provider Chasidy WATSON, Dr. Clayton Referring Provider Chasidy WATSON, Dr. Clayton Other Provider Neeta WATSON, Dr. Rosa Maria Iverson Primary Care Provider Neeta WATSON, Dr. Rosa Maria Iverson Referring Provider Monique WATSON, Dr. Singh Brenner Attending Provider Monique WATSON, Dr. Singh Brenner Referring Provider Chloé WATSON, Dr. García Attending Provider Chasidy WATSON, Dr. Clayton Referring Provider Chasidy WATSON, Dr. Clayton Other Provider Monique WATSON, Dr. Singh Brenner Other Provider Neeta WATSON, Dr. Rosa Maria Iverson Primary Care Provider Neeta WATSON, Dr. Rosa Maria Iverson Referring Provider Francisco Javier WATSON, Dr. Murdock Attending Provider [phone] Monique WATSON, Dr. Singh Brenner Attending Provider Monique WATSON, Dr. Singh Brenner Referring Provider Monique WATSON, Dr. Singh Brenner Other Provider Francisco Javier WATSON, Dr. Murdock Referring Provider [phone] Kenney WATSON, Dr. Engle Other Provider [phone] Flower, Jakob Primary Care Unavailable Flower, Jakob Referring Unavailable Flower, Jakob Attending Unavailable Singh mAaya Attending Unavailable Singh Amaya Referring Unavailable Jolliff, Rosa Amria S Primary Care Unavailable Rosalina Ricoyler Consulting Unavailable Flower, Jakob Primary Care Unavailable Flower, Jakob Referring Unavailable Flower, Jakob Attending Unavailable Jolliff, Rosa Maria S Referring Unavailable Jolliff, Rosa Maria S Attending Unavailable Jolliff, Rosa Maria S Primary Care Unavailable Singh Amaya Attending Unavailable Singh Amaya Referring Unavailable Jolliff, Rosa Maria S Primary Care Unavailable Paco Pereira Attending Unavailabl e Flower, Jakob Primary Care Unavailable Aurelia Umaña Referring Unavailable Aurelia Umaña Attending Unavailable Flower, Jakob Primary Care Unavailable Vicente Cortez Attending Unavailable Deandre Araujo Admitting Unavailable Deandre Araujo Consulting Unavailable Flower, Jakob Primary Care Unavailable Erika, Jayaprakas Consulting Unavailable Kittoe, Vicente Consulting Unavailable Carina, Jakob Consulting Unavailable Kenney, Oniel Consulting Unavailable Kenney, Oniel Attending Unavailable Deandre Araujo Admitting Unavailable Deandre Araujo Consulting Unavailable Flower, Jakob Primary Care Unavailable Erika, Jayaprakas Consulting Unavailable Kittoe, Vicente Consulting Unavailable Carina, Jakob Consulting Unavailable Kenney, Oniel Consulting Unavailable Vicente Cortez Attending Unavailable Aurelia Umaña Attending Unavailable Aurelia Umaña Consulting Unavailable CalabrAurelia dumont Referring Unavailable Flower, Jakob Primary Care Unavailable Frederick Roberts Referring Unavailable Jolliff, Rosa Maria S Primary Care Unavailable Frederick Roberts Attending Unavailable Leo Shen Attending Unavailable Flower, Jakob Primary Care Unavailable Singh Amaya Attending Unavailable Singh Amaya Referring Unavailable Flower, Jakob Primary Care Unavailable Singh Amaya Consulting Unavailable Flower, Jakob Primary Care Unavailable Flower, Jakob Attending Unavailable Flower, Jakob Referring Unavailable Paco Pereira Attending Unavailabl e Flower, Jakob Primary Care Unavailable Paco Pereira Attending Unavailabl e Flower, Jakob Primary Care Unavailable Mathieu Mcintyre Referring Unavailable Mathieu Mcintyre Attending Unavailable Kenney, Oniel Consulting Unavailable Jolliff, Rosa Maria S Primary Care Unavailable Honey Barron Attending Unavailable Flower, Jakob Primary Care Unavailable Calabrjulia Aurelia Referring Unavailable Raquel Luevano Attending Unavailabl e Flower, Jakob Primary Care Unavailable Flower, Jakob Primary Care Unavailable Mathieu Mcintyre Attending Unavailable Flower, Jakob Referring Unavailable Jolliff, Rosa Maria S Referring Unavailable Jolliff, Rosa Maria S Primary Care Unavailable Dayne Rico Attending Unavailable Mathieu Mcintyre Attending Unavailable Jolliff, Rosa Maria S Referring Unavailable Jolliff, Rosa Maria S Primary Care Unavailable CalabrAurelia dumont Attending Unavailable Jolliff, Rosa Maria S Referring Unavailable Flower, Jakob Primary Care Unavailable Odette Harman Attending Unavailable Flower, Jakob Primary Care Unavailable Susan Walden Attending Unavailable Deandre Araujo Attending Unavailable Allergies Allergy Classification Reported Allergen(s) Allergy Type Date of Onset Reaction(s) Facility (20 sources) Furosemide Drug Allergy 09-12-19 21 [facility] Work Phone: Comment on above: after taking for a l nicholas period of time (20 sources) hydroCHLOROthiazide Drug Allergy 09-12-19 [facility] Work Phone: (20 sources) Lovastatin; Translations: [LOVASTATIN] Drug Allergy 12-14-19 Kaylee [facility] Work Phone: (19 sources) amLODIPine; Translations: [AMLODIPINE] Drug Allergy 12-14-19 [facility] (1 source) Furosemide Drug Allergy 03-03-20 [facility] (1 source) hydroCHLOROthiazide Drug Allergy 03-03-20 [facility] (1 source) Lovastatin Drug Allergy 03-03-20 [facility] Repository Medications Current Medications Medication Drug Class(es) Dates Sig (Normalized) Sig (Original) acetaminophen 325 mg / oxyCODONE hydrochloride 5 mg oral tablet (2 sources) Opioid Agonist Start: 09-19-2020 End: 09-28-2020 take 1 tablet by mouth every six hours as needed for pain, then take 1 tablet by mouth as needed for pain oxyCODONE-acetamino phen (PERCOCET) 5-325 MG per tablet Indications: Parapneumonic effusion Take 1 tablet by mouth every 6 hours as needed for Pain for up to 7 days. Intended supply: 7 days. Take lowest dose possible to manage pain 28 tablet 0 09/21/2020 09/28/2020 Active albuterol 0.833 mg/ml / ipratropium bromide 0.167 mg/ml inhalation solution (4 sources) Anticholinergic, beta2-Adrenergic Agonist Start: 12-03-2022 take 1 mL by inhalation three times daily Ipratropium-Albuter ol Active 3 ML INHALATION THREE TIMES A DAY 90 December 03, 2022 12:00am Start: 09-19-2020 1 ampule, Inha lation, 4 TIMES DAILY, First dose on Fri09/19/20 at 1200 Start: 09-12-2020 End: 09-19-2020 ipratropium-albuterol (DUONE B) nebulizer solution 1 ampule aspirin 81 mg delayed release oral tablet (20 sources) Platelet Aggregation Inhibitor, Nonsteroidal Anti-inflammatory Drug Start: 04-14-2023 Start: 08-29-2016 End: 01-24-2023 Start: 05-28-2015 End: 05-30-2015 Comment on above: Take 81 mg by mouth once daily. benzonatate 100 mg oral capsule (1 source) Non-narcotic Antitussive Start: 1 benzonatate (TESSALON) capsule 100 mg castor oil 0.788 mg/mg / japanese balsam 0.087 mg/mg topical ointment (1 source) Standardized Chemical Allergen Start: 1 Venelex ointment docusate sodium 100 mg oral capsule (1 source) Start: 1 take 100 mg by mouth twice daily 100 mg, Oral, 2 TIMES DAILY, First dose on Fri09/19/20 at 1115 Do not crush or break. ethacrynic acid (EDECRIN) 50 mg in sodium chloride 0.9 % 50 mL IVPB (1 source) Start: 1 50 mg, Intravenous, at 100 mL/hr, Administer over 30 Minutes, 2 TIMES DAILY, First dose on Fri10/02/20 at 2245 ferrous sulfate 325 mg oral tablet (20 sources) Start: 5 take 1 tablet by mouth once daily Ferrous Sulfate 325 MG tablet Active 325 mg PO DAILY May 28, 2015 1:00am vitamin Comment on above: Take 325 mg by mouth daily with breakfast. furosemide 20 mg oral tablet (20 sources) Loop Diuretic Start: 5 Start: 08-24-2019 End: 04-26-2020 3 ml heparin sodium, porcine 100 unt/ml prefilled syringe (9 sources) Unfractionated Heparin, Anti-coagulant Start: 10-03-2020 heparin flush 100 UNIT/ML injection 250 Units Start: 09-21-2020 heparin flush 100 UNIT/ML injection 250 Units Start: 09-21-2020 heparin flush 100 UNIT/ML injection 250 Units Start: 09-20-2020 End: 09-21-2020 heparin (porcine) injection 5,000 Units Start: 09-11-2020 End: 09-19-2020 heparin (porcine) injection 5,000 Units hydrALAZINE hydrochloride 50 mg oral tablet (20 sources) Arteriolar Vasodilator Start: 04-14-2023 End: 02-18-2025 Start: 04-14-2023 End: 02-18-2025 take 2 tablets by mouth twice daily Hydralazine 50 mg tablet Discontinued 100 mg PO TWICE A DAY 180 3 April 09, 2024 2:26pm February 18, 2025 9:01am Start: 04-14-2023 End: 11-04-2023 take 1 tablet by mouth twice daily Hydralazine 50 mg tablet Discontinued 50 mg PO TWICE A DAY April 14, 2023 12:00am November 04, 2023 1:54pm Start: 12-03-2021 End: 12-03-2022 Start: 12-03-2021 End: 12-03-2022 take 1 tablet by mouth twice daily Hydralazine 50 mg tablet Discontinued 50 mg PO TWICE A DAY November 29, 2022 3:05am December 03, 2022 2:23pm Start: 12-03-2021 End: 11-29-2022 take 1 tablet by mouth three times daily Hydralazine 50 mg tablet Discontinued 50 mg PO THREE TIMES A DAY 270 90 December 03, 2021 12:07pm November 29, 2022 3:05am Start: 06-15-2021 End: 12-03-2021 1 ml LORazepam 2 mg/ml injection (1 source) Benzodiazepine Start: 09-12-2020 LORazepam (ATI VAN) injection 1 mg morphine (PF) injection 2 mg (1 source) Start: 09-19-2020 morphine (PF) injection 2 mg 2 ml ondansetron 2 mg/ml injection (1 source) Serotonin-3 Receptor Antagonist Start: 09-19-2020 4 mg, Intravenous, EVERY 6 HOURS PRN, Nausea, Vomiting, Starting Fri09/19/20 at 1051 oxyCODONE hydrochloride 5 mg oral tablet (20 sources) Opioid Agonist Start: 12-27-2024 Start: 12-19-2022 End: 01-24-2023 Start: 09-20-2020 oxyCODONE (SUNITA ICODONE) immediate release tablet 2.5 mg Start: 09-19-2020 End: 09-20-2020 oxyCODONE (ROXICODONE) immed iate release tablet 5 mg take 1 tablet by ca th every six hours as needed oxyCODONE IR (ROXICODONE) 5 mg immediate release tablet Take 5 mg by mouth every 6 hours as needed for pain. 0 Active Comment on above: Take 5 mg by mouth e very 6 hours as needed for pain. petrolatum 0.41 mg/mg topical ointment (1 source) Start: 10-05-2020 mineral oil-hydrophilic petrolatum (AQUAPHOR) ointment polyethylene glycol [id number] [id number] mg powder for oral solution (5 sources) Osmotic Laxative Start: 09-19-2020 End: 10-21-2020 17 g, Oral, DAILY PRN, Constipation, Starting Fri10/02/20 at 2224 First line therapy for constipation Potassium Chloride (2 sources) Start: 10-02-2020 potassium chloride (KLOR-CON M) extended release tablet 40 mEq Start: 09-13-2020 End: 09-13-2020 potassium chloride (KLOR-CON M) extended release tablet 40 mEq Promethazine (1 source) Phenothiazine Start: 10-02-2020 promethazine ( PHENERGAN) tablet 12.5 mg 1000 ml sodium chloride 9 mg/ml injection (20 sources) Start: 10-04-2020 0.9 % sodium c hloride infusion Start: 10-04-2020 sodium chlorid e flush 0.9 % injection 5-40 mL Start: 10-03-2020 sodium chlorid e flush 0.9 % injection 10 mL Start: 10-02-2020 10 mL, Intrave nous, EVERY 12 HOURS SCHEDULED (2 times per day), First dose on Fri10/02/20 at 2245 Start: 10-02-2020 take 25 mL intraveno us route every hour as needed 25 mL, Intravenous, at 100 mL/hr, PRN, If patient receiving piggyback infusions without ordered maintenance IV fluids or with frequent/long duration piggyback infusions, Starting Fri10/02/20 at 2218 Administer at the same rate as the piggyback being infused. Start: 10-02-2020 take 10 mL intraveno us route once as needed 10 mL, Intravenous, PRN, Line Care, After every IV line use, Starting Fri10/02/20 at 2218 Start: 09-21-2020 sodium chlorid e flush 0.9 % injection 10 mL Start: 09-21-2020 sodium chlorid e flush 0.9 % injection 10 mL Start: 09-19-2020 End: 09-20-2020 0.9 % sodium chloride infusi on Start: 09-12-2020 End: 09-12-2020 0.9 % sodium chloride infusi on Start: 09-11-2020 sodium chlorid e flush 0.9 % injection 10 mL stomahesive in petrolatum (E T MIX) (2 sources) Start: 10-04-2020 stomahesive in petrolatum (ET MIX) Start: 10-03-2020 End: 10-04-2020 stomahesive in petrolatum (E T MIX) thiamine 100 mg oral tablet (1 source) Start: 09-12-2020 thiamine monon itrate tablet 100 mg vitamin b 12 1 mg oral tablet (3 sources) Vitamin B12 Start: 10-03-2020 take 500 ug by mouth once daily 500 mcg, Oral, DAILY, First dose on Fri10/03/20 at 0900 take 1 tablet by mouth once shereen y vitamin B-12 (CYANOCOBALAMIN) 500 MCG tablet Take 500 mcg by mouth daily 0 Active Vitamin B Complex (11 sources) Start: 02-07-2016 Vitamin B Comp salvatore Active 1 EACH PO DAILY February 06, 2016 11:00pm Start: 02-07-2016 Vitamin B Comp salvatore Active 1 EACH PO DAILY February 07, 2016 12:00am Vitamin B Complex 1 EACH cap everton (9 sources) Start: 02-07-2016 Vitamin B Comp salvatore 1 EACH capsule Active 1 NMA PO DAILY February 07, 2016 12:00am vitamin Start: 02-07-2016 Vitamin B Comp salvatore 1 EACH capsule Active 1 NMA PO DAILY February 07, 2016 12:00am zinc acetate 50 mg oral caps ule (12 sources) Start: 09-29-2023 Completed/Discontinued Medications Medication Drug Class(es) Dates Sig (Normalized) Sig (Original) acetaminophen 325 mg oral tablet (20 sources) Start: 01-09-2023 End: 02-08-2023 take 3 tablets by mouth every six hours acetaminophen (TYLENOL) 325 mg tablet Take 3 tablets by mouth every 6 hours. 360 tablet 0 01/09/2023 02/08/2023 Start: 12-19-2022 End: 12-14-2024 Start: 12-19-2022 take 1000 mg by mout h every six hours as needed Acetaminophen Active 1000 MG PO EVERY 6 HOURS NEEDED 0 December 19, 2022 12:00am Start: 10-02-2020 acetaminophen (TYLENOL) tablet 650 mg Start: 09-12-2020 acetaminophen (TYLENOL) tablet 1,000 mg take 2 tablets by mo [facility] every eight hours as needed acetaminophen (TYLENOL EXTRA STRENGTH) 500 mg tablet Take 1,000 mg by mouth every 8 hours as needed for pain. 0 Active Comment on above: Take 3 tablets by mo uth every 6 hours. Take 1,000 mg by [facility] every 8 hours as needed for pain. 20 ml albumin human, [facility] 250 mg/ml injection (1 source) Human Serum Albumin Start: 10-02-2020 End: 10-03-2020 albumin human 25 % IV solution 25 g alteplase (CATHFLO) 2 mg in sodium chloride 0.9 % 15 mL IV syringe (2 sources) Start: 09-17-2020 End: 09-17-2020 alteplase (CATHFLO) 2 mg in sodium chloride 0.9 % 15 mL IV syringe Start: 09-16-2020 End: 09-16-2020 alteplase (CATHFLO) 2 mg in sodium chloride 0.9 % 15 mL IV syringe alteplase (CATHFLO) 4 mg in sodium chloride 0.9 % 30 mL (1 source) Start: 09-13-2020 End: 09-13-2020 alteplase (CATHFLO) 4 mg in sodium chloride 0.9 % 30 mL alteplase (CATHFLO) 4 mg in sodium chloride 0.9 % 30 mL (BOXCAR WEIGHER ADMINISTRATION) (1 source) Start: 09-14-2020 End: 09-14-2020 alteplase (CATHFLO) 4 mg in sodium chloride 0.9 % 30 mL (BOXCAR WEIGHER ADMINISTRATION) amiodarone hydrochloride 200 mg oral tablet (20 sources) Antiarrhythmic Start: 03-07-2020 End: 06-25-2023 Start: 03-07-2020 End: 06-25-2023 Amiodarone 200 mg tablet Dis continued 100 mg PO DAILY December 03, 2022 8:28pm May 09, 2023 12:58pm heart Start: 03-07-2020 End: 05-09-2023 take 100 mg by mouth once daily Amiodarone Discontinued 100 MG PO DAILY December 03, 2022 8:28pm May 09, 2023 12:58pm Comment on above: Take 1 tablet by [facility] once daily. amLODIPine 10 mg oral tablet (20 sources) Dihydropyridine Calcium Channel Anna Start: 04-14-2023 End: 07-16-2024 Start: 06-20-2022 End: 12-03-2022 Start: 06-05-2022 End: 06-20-2022 ampicillin-sulbactam (UNASYN ) 3,000 mg in sodium chloride 0.9 % 100 mL IVPB (ADD-VANTAGE) (2 sources) Start: 09-13-2020 End: 09-14-2020 ampicillin-sulbactam (UNASYN ) 3,000 mg in sodium chloride 0.9 % 100 mL IVPB (ADD-VANTAGE) Start: 09-12-2020 End: 09-13-2020 ampicillin-sulbactam (UNASYN ) 3,000 mg in sodium chloride 0.9 % 100 mL IVPB (ADD-VANTAGE) apixaban 2.5 mg oral tablet (20 sources) Factor Xa Inhibitor Start: 11-02-2020 End: 06-15-2021 Start: 10-07-2020 take 2 tablets by mo [facility] twice daily apixaban (ELIQUIS) 2.5 MG TABS tablet Take 2 tablets by mouth 2 times daily Increase to 5 mg bid unless decreased by your wardrobe manager. 60 tablet 0 10/07/2020 Active Start: 10-04-2020 apixaban (ELIQ UIS) tablet 5 mg Start: 10-02-2020 End: 10-04-2020 take 2.5 mg by mouth twice daily 2.5 mg, Oral, 2 TIMES DAILY, First dose on Fri10/02/20 at 2245 ANTICOAGULANT Start: 09-21-2020 apixaban (ELIQ UIS) tablet 2.5 mg Start: 07-03-2020 End: 11-02-2020 End: 09-21-2020 take 1 tablet by mouth once daily apixaban (ELIQUIS) 2.5 MG TABS tablet Take 2.5 mg by mouth daily 0 09/21/2020 Discontinued (REORDER) Xftmn-Juil-Jqvew-Collag-Mv-M in (Fletcher (With Collagen)) 7-7-1.5 gram Powder In Packet (14 sources) Start: 12-19-2022 End: 05-08-2023 Dtprx-Yiqf-Ijbdv-Collag-Mv-M in (Fletcher (With Collagen)) 7-7-1.5 gram Powder In Packet Discontinued 1 NMA PO TWICE DAILY WITH MEALS 0 December 19, 2022 12:00am May 08, 2023 12:32pm Start: 12-19-2022 End: 05-08-2023 Uciuo-Qrpx-Vnkgi-Collag-Mv-M in (Fletcher (With Collagen)) 7-7-1.5 gram Powder In Packet Discontinued 1 NMA PO TWICE DAILY WITH MEALS 0 December 19, 2022 12:00am May 08, 2023 12:32pm Start: 12-19-2022 End: 05-08-2023 Fjbno-Xdsx-Uekhu-Collag-Mv-M in (Fletcher (With Collagen)) 7-7-1.5 gram Powder In Packet Discontinued 1 PACKET PO TWICE DAILY WITH MEALS 0 December 19, 2022 12:00am May 08, 2023 12:32pm Start: 12-19-2022 End: 05-08-2023 Cbusc-Rqxa-Hckya-Collag-Mv-M in (Fletcher (With Collagen)) 7-7-1.5 gram Powder In Packet Discontinued 1 PACKET PO TWICE DAILY WITH MEALS 0 December 18, 2022 11:00pm May 08, 2023 11:32am Start: 12-19-2022 Kmvwb-Jxko-Sqf bg-Kxftle-Xe-Min (Fletcher (With Collagen)) 7-7-1.5 gram Powder In Packet Active 1 PACKET PO TWICE DAILY WITH MEALS 0 December 19, 2022 12:00am atorvastatin 40 mg oral tabl et (20 sources) HMG-CoA Reductase Inhibitor Start: 05-16-2021 End: 03-08-2024 Start: 05-28-2015 End: 05-03-2021 Comment on above: Take 40 mg by mouth once daily. azaTHIOprine 75 mg oral tablet (20 sources) Purine Antimetabolite Start: 01-25-20 End: 04-14-20 take 1 tablet by mouth once daily Azathioprine (Azasan) 75 mg tablet Discontinued 50 mg PO DAILY January 24, 2023 12:00am April 14, 2023 2:33pm Start: 05-28-2015 End: 03-03-2020 Start: 05-28-2015 End: 03-03-2020 take 1 tablet by mouth every other day Azathioprine 50 mg tablet Discontinued 50 mg PO every other day October 05, 2018 1:49pm March 03, 2020 1:34pm Start: 05-28-2015 End: 03-03-2020 take 25 mg by mouth once daily Azathioprine Discontinu ed 25 MG PO DAILY July 31, 2017 3:08pm October 05, 2018 1:51pm Comment on above: Take 50 mg by mouth once daily. balsalazide disodium 750 mg oral capsule (20 sources) Aminosalicylate Start: 11-08-2024 End: 12-10-2024 Start: 05-16-2021 End: 07-07-2023 Start: 01-19-2021 End: 05-03-2021 take 3 tablets by mouth twice daily in the morning Balsalazide (Colazal) 750 mg capsule Discontinued 2250 mg PO TWICE A DAY January 19, 2021 11:02am May 03, 2021 9:25am colitis 3 tabs in am nd 3 tabs in the evening Start: 10-03-2020 take 750 mg by mouth once shereen y 750 mg, Oral, DAILY, First dose on Fri10/03/20 at 0900 Start: 09-20-2020 balsalazide (C OLAZAL) capsule 2,250 mg Start: 07-30-2017 End: 07-31-2017 take 1 capsule by mouth three times daily Balsalazide (Colazal) 750 mg capsule Discontinued 2250 mg PO THREE TIMES A DAY July 30, 2017 1:00am July 31, 2017 3:11pm Start: 05-28-2015 End: 05-03-2021 Start: 05-28-2015 End: 07-30-2017 take 1 capsule by mouth four times daily Balsalazide 750 MG capsule Discontinued 750 mg PO 4 TIMES DAILY May 28, 2015 1:00am July 30, 2017 11:53am take 3 capsules by out three times daily balsalazide (COLAZAL) 750 mg capsule Take 2,250 mg by mouth three times daily. 0 Active take 3 capsules by m outh twice daily balsalazide (COLAZAL) 750 MG capsule Take 2,250 mg by mouth 2 times daily 0 Active take 1 capsule by mo nyh once daily balsalazide (COLAZAL) 750 MG capsule Take 750 mg by mouth daily 0 Active Comment on above: Take 2,250 mg by ca th three times daily. bumetanide 1 mg oral tablet (19 sources) Loop Diuretic Start: 06-25-2023 End: 09-29-2023 calcium chloride 0.0014 meq/ml / potassium chloride 0.004 meq/ml / sodium chloride 0.103 meq/ml / sodium lactate 0.028 meq/ml injectable solution (1 source) Start: 09-11-2020 End: 09-12-2020 lactated ringers infusion carvedilol 3.125 mg oral tablet (20 sources) alpha-Adrenergic Anna, beta-Adrenergic Anna Start: 12-03-2022 End: 06-25-2023 Start: 10-17-2022 End: 12-03-2022 Start: 04-14-2018 End: 11-16-2018 Start: 04-14-2018 End: 11-16-2018 take 2 tablets by mouth twice daily Carvedilol 12.5 mg tablet Discontinued 25 mg PO TWICE A DAY October 05, 2018 1:50pm November 16, 2018 8:39am Start: 04-14-2018 End: 11-16-2018 take 25 mg by mouth twice daily Carvedilol Discontinue d 25 MG PO TWICE A DAY October 05, 2018 1:50pm November 16, 2018 8:39am Start: 05-28-2015 End: 07-30-2017 Start: 05-28-2015 End: 07-30-2017 take 1 tablet by mouth once daily Carvedilol 6.25 MG tablet Discontinued 6.25 mg PO DAILY May 28, 2015 1:00am July 30, 2017 11:52am take 1 tablet by ca twice daily at mealtime carvedilol (COREG) 12.5 mg tablet Take 12.5 mg by mouth twice daily with meals. 0 Active Comment on above: Take 12.5 mg by mout h twice daily with meals. Take 1 tablet by ca th twice daily. cefepime (1 source) Cephalosporin Antibacterial Start: 09-14-2020 End: 09-15-2020 cefepime (MAXIPIME) 1000 mg IVPB extended (mini-bag) cefTRIAXone 2000 mg injection (20 sources) Cephalosporin Antibacterial Start: 12-03-2022 End: 12-03-2022 cefTRIAXone sodium 1,000 mg in dextrose 5 % 50 mL IVPB (add-vantage) (2 sources) Start: 10-02-2020 End: 10-07-2020 1,000 mg, Intravenous, EVERY 24 HOURS, First dose on Fri10/02/20 at 2300, Until Discontinued Start: 09-15-2020 cefTRIAXone so dium 1,000 mg in dextrose 5 % 50 mL IVPB (add-vantage) cephalexin 500 mg oral capsu le (14 sources) Cephalosporin Antibacterial Start: 09-03-2023 End: 09-29-2023 chlorthalidone 25 mg oral ta blet (20 sources) Thiazide-like Diuretic Start: 04-14-2023 End: 05-08-2023 Start: 05-20-2022 End: 12-03-2022 ciprofloxacin 750 mg oral ta blet (20 sources) Quinolone Antimicrobial Start: 06-09-2023 End: 06-25-2023 clopidogrel 75 mg oral table t (20 sources) P2Y12 Platelet Inhibitor Start: 04-14-2018 End: 10-05-2018 Start: 05-28-2015 End: 05-30-2015 docusate sodium 50 mg / srinivas osides, [facility] 8.6 mg oral tablet (20 sources) Start: 12-19-2022 End: 01-24-2023 Start: 12-19-2022 End: 01-24-2023 Sennosides-Docusate Sodium ( Stool Softener-Stimulant Laxat) 8.6-50 mg Tablet Discontinued 1 {tbl} PO TWICE A DAY as needed for Constipation 0 0 December 19, 2022 12:00am January 24, 2023 2:13pm Start: 12-19-2022 End: 01-24-2023 take 1 tablet by ca th once daily senna-docusate (SENNA PLUS) 8.6-50 mg per tablet Take 1 tablet by mouth once daily. 0 Active Comment on above: Take 1 tablet by ca th once daily. doxycycline hyclate 100 mg o ral capsule (20 sources) Tetracycline-class Drug Start: 06-09-2023 End: 06-25-2023 Start: 09-12-2020 End: 09-14-2020 doxycycline monohydrate (MON ODOX) capsule 100 mg Start: 09-08-2020 End: 10-11-2020 End: 09-21-2020 take 1 tablet by mouth once daily doxycycline hyclate (VIBRA-TABS) 100 MG tablet Take 100 mg by mouth daily 0 09/21/2020 Discontinued (Stop Taking at Discharge) ergocalciferol 1.25 mg oral capsule (20 sources) Provitamin D2 Compound Start: 01-11-2023 End: 04-14-2023 Comment on above: Take 1 capsule by [facility] one time a week for 6 doses. ethacrynic acid 25 mg oral tablet (20 sources) Loop Diuretic Start: 09-07-2020 End: 09-11-2020 ezetimibe 10 mg oral tablet (20 sources) Dietary Cholesterol Absorption Inhibitor Start: 01-24-2023 End: 04-14-2023 Comment on above: Take 10 mg by mouth once daily. 2 ml fentaNYL 0.05 mg/ml injection (1 source) Opioid Agonist Start: 09-12-2020 End: 09-12-2020 fentaNYL (SUBLIMAZE) injection hydroCHLOROthiazide 25 mg oral tablet (20 sources) Thiazide Diuretic Start: 04-23-2018 End: 08-02-2019 HYDROmorphone (DILAUDID) 30 mg in sodium chloride 0.9 % 30 mL HEMATOLOGY ONCOLOGY CONSULTANT (1 source) Start: 09-19-2020 End: 09-19-2020 HYDROmorphone (DILAUDID) 30 mg in sodium chloride 0.9 % 30 mL HEMATOLOGY ONCOLOGY CONSULTANT lactobacillus acidophilus 100 mg oral capsule (20 sources) Start: 11-02-2020 End: 11-02-2020 take 1 capsule by mouth twice daily Lactobacillus Acidophilus capsule Discontinued 100 mg PO TWICE A DAY 60 30 0 November 02, 2020 12:00am November 02, 2020 5:29pm levothyroxine sodium 0.05 mg oral tablet (20 sources) l-Thyroxine Start: 01-10-2023 take 1 tablet by mouth once daily, then take 6 tablets by mouth in the morning levothyroxine (SYNTHROID) 75 mcg tablet Take 1 tablet by mouth DAILY (6 AM). 0 01/10/2023 Active Start: 06-13-2020 End: 03-03-2025 Start: 06-13-2020 End: 10-01-2024 Levothyroxine 50 mcg tablet Discontinued 75 ug PO DAILY June 13, 2020 1:00am October 01, 2024 1:02pm thyroid Start: 06-13-2020 take 75 ug by mouth once daily Levothyroxine Active 75 MCG PO DAILY June 13, 2020 1:00am Comment on above: Take 1 tablet by ca th DAILY (6 AM). 10 ml lidocaine hydrochloride 10 mg/ml injection (3 sources) Antiarrhythmic, Amide Local Anesthetic Start: 10-03-2020 End: 10-03-2020 lidocaine PF 1 % injection Start: 09-21-2020 End: 09-21-2020 lidocaine 1 % injection 5 mL Start: 09-12-2020 End: 09-12-2020 lidocaine PF 1 % injection lisinopril 20 mg oral tablet (20 sources) Angiotensin Converting Enzyme Inhibitor Start: 04-14-2023 End: 07-16-2024 Start: 01-24-2023 End: 01-24-2023 Start: 05-16-2021 End: 12-03-2022 Start: 05-16-2021 End: 12-03-2022 take 1 tablet by mouth twice daily Lisinopril 20 mg tablet Discontinued 20 mg PO TWICE A DAY 180 3 November 26, 2022 10:23pm December 03, 2022 2:18pm Start: 11-16-2018 End: 10-11-2020 Start: 11-16-2018 End: 10-11-2020 take 1 tablet by mouth twice daily Lisinopril 20 mg tablet Discontinued 20 mg PO TWICE A DAY 180 4 October 18, 2019 9:03am October 11, 2020 10:45am Start: 04-06-2018 End: 11-16-2018 take 2 tablets by mouth twice daily Lisinopril 10 mg tablet Discontinued 20 mg PO TWICE A DAY April 06, 2018 2:33pm November 16, 2018 8:34am Start: 05-28-2015 End: 11-16-2018 Start: 05-28-2015 End: 11-16-2018 take 1 tablet by mouth twice daily Lisinopril 10 MG tablet Discontinued 10 mg PO TWICE A DAY July 31, 2017 3:09pm April 06, 2018 2:34pm Start: 05-28-2015 End: 11-16-2018 take 20 mg by mouth twice daily Lisinopril Discontinue d 20 MG PO TWICE A DAY April 06, 2018 2:33pm November 16, 2018 8:34am Comment on above: Take 20 mg by mouth twice daily. Take 10 mg by mouth once daily. 100 ml magnesium sulfate 40 mg/ml injection (1 source) Start: 10-06-2020 End: 10-06-2020 magnesium sulfate 4000 mg in 100 mL IVPB premix Menthol / Zinc Oxide (14 sources) Start: 12-19-2022 End: 05-08-2023 Menthol-Zinc Oxide (Calmoseptine) 0.44-20.6 % Ointment Discontinued 1 NMA TOPICAL TWICE A DAY 0 0 December 19, 2022 12:00am May 08, 2023 12:32pm Please contact the information source for Protocol details. Start: 12-19-2022 End: 05-08-2023 Menthol-Zinc Oxide (Calmosep zeke) 0.44-20.6 % Ointment Discontinued 1 NMA TOPICAL TWICE A DAY 0 December 19, 2022 12:00am May 08, 2023 12:32pm Please contact the information source for Protocol details. Start: 12-19-2022 End: 05-08-2023 Menthol-Zinc Oxide (Calmosep zeke) 0.44-20.6 % Ointment Discontinued 1 APPLIC TOPICAL TWICE A DAY 0 December 19, 2022 12:00am May 08, 2023 12:32pm Start: 12-19-2022 End: 05-08-2023 Menthol-Zinc Oxide (Calmosep zeke) 0.44-20.6 % Ointment Discontinued 1 APPLIC TOPICAL TWICE A DAY 0 December 18, 2022 11:00pm May 08, 2023 11:32am Start: 12-19-2022 Menthol-Zinc O xide (Calmoseptine) 0.44-20.6 % Ointment Active 1 APPLIC TOPICAL TWICE A DAY 0 December 19, 2022 12:00am metoprolol tartrate 25 mg or al tablet (20 sources) beta-Adrenergic Anna Start: 01-14-2022 End: 10-17-2022 Start: 06-15-2021 End: 01-14-2022 Start: 04-26-2020 End: 10-11-2020 take 2 tablets by mouth twice daily Metoprolol Tartrate 25 mg tablet Discontinued 50 mg PO TWICE A DAY April 26, 2020 11:01am October 11, 2020 10:46am Start: 11-16-2018 End: 06-15-2021 Start: 11-16-2018 End: 06-15-2021 take 1 tablet by mouth twice daily Metoprolol Tartrate Discontinued 0 .ROUTE .COMPLEX 180 December 11, 2020 2:00pm January 19, 2021 11:29am TAKE 1 TABLET BY MOUTH TWICE DAILY Start: 11-16-2018 End: 10-11-2020 take 25 mg by mouth once daily 25 mg, Oral, DAILY, Fir st dose on Fri10/03/20 at 0900 metroNIDAZOLE 500 mg oral tablet (20 sources) Nitroimidazole Antimicrobial Start: 10-02-2020 End: 10-11-2020 Metronidazole 500 MG tablet Discontinued 1 {tbl} PO THREE TIMES A DAY October 02, 2020 12:00am October 11, 2020 10:45am Start: 10-02-2020 End: 10-11-2020 take 1 tablet by mouth three times daily Metronidazole Discontinued 1 TABLET PO THREE TIMES A DAY October 01, 2020 11:00pm October 11, 2020 9:45am Start: 10-02-2020 End: 10-11-2020 take 1 tablet by mouth three times daily Metronidazole Discontinued 1 TABLET PO THREE TIMES A DAY October 02, 2020 12:00am October 11, 2020 10:45am Start: 09-15-2020 End: 10-07-2020 take 1 tablet by mouth three times daily metroNIDAZOLE (FLAGYL) 500 MG tablet Take 1 tablet by mouth 3 times daily for 13 days 39 tablet 0 09/21/2020 10/07/2020 Discontinued (Stop Taking at Discharge) miSOPROStol 0.1 mg oral tablet (20 sources) Prostaglandin E1 Analog Start: 12-20-2022 End: 01-24-2023 nystatin [id number] unt/ml topical cream (20 sources) Polyene Antifungal Start: 12-23-2022 nystatin (MYCOSTATIN) cream Start: 12-19-2022 End: 05-08-2023 Start: 12-19-2022 End: 05-08-2023 Nystatin (Nyamyc) 100,000 un it/gram Powder Discontinued 1 NMA TOPICAL TWICE A DAY 0 0 December 19, 2022 12:00am May 08, 2023 12:32pm Please contact the information source for Protocol details. Start: 12-19-2022 End: 05-08-2023 Nystatin (Nyamyc) 100,000 un it/gram Powder Discontinued 1 APPLIC TOPICAL TWICE A DAY 0 December 19, 2022 12:00am May 08, 2023 12:32pm Start: 12-19-2022 End: 05-08-2023 pantoprazole 40 mg delayed r elease oral tablet (20 sources) Proton Pump Inhibitor Start: 06-25-2023 End: 09-29-2023 Start: 12-20-2022 End: 01-24-2023 Start: 05-16-2021 End: 06-15-2021 Start: 02-19-2016 End: 05-03-2021 Start: 02-19-2016 End: 05-03-2021 take 1 tablet by mouth once daily Pantoprazole 40 MG tablet Discontinued 40 mg PO DAILY August 29, 2016 11:14am May 03, 2021 9:25am reflux perflutren lipid microspheres (DEFINITY) injection 1.65 mg (1 source) Start: 10-05-2020 End: 10-05-2020 perflutren lipid microspheres (DEFINITY) injection 1.65 mg piperacillin 3000 mg / tazobactam 375 mg injection (1 source) Penicillin-class Antibacterial, beta Lactamase Inhibitor Start: 09-11-2020 End: 09-12-2020 piperacillin-tazobact am (ZOSYN) 3375 mg in dextrose 50 mL IVPB extended infusion (premix) sucralfate 1000 mg oral tablet (20 sources) Aluminum Complex Start: 12-20-2022 End: 01-24-2023 traMADol hydrochloride 50 mg oral tablet (20 sources) Opioid Agonist Start: 12-19-2022 End: 05-08-2023 Comment on above: Take 1 tablet by ca th every 6 hours as needed. vancomycin 25 mg/ml oral solution (20 sources) Glycopeptide Antibacterial Start: 11-02-2020 End: 11-09-2020 vancomycin (VANCOCIN) 1,250 mg in dextrose 5 % 250 mL IVPB (1 source) Start: 09-13-2020 End: 09-15-2020 vancomycin (VANCOCIN) 1,250 mg in dextrose 5 % 250 mL IVPB warfarin sodium 5 mg oral tablet (20 sources) Vitamin K Antagonist Start: 04-15-2018 End: 10-05-2018 Start: 04-15-2018 End: 07-04-2020 Start: 04-15-2018 End: 07-04-2020 take 2.5 mg by mouth once daily Warfarin 5 mg tablet Discontinued 5 mg PO DAILY 90 3 March 10, 2019 2:51pm March 10, 2019 2:53pm M/T/W// and 2.5 mg Sat/Sun- or otherwise as instructed Please contact the information source for Protocol details. Start: 06-18-2017 End: 10-22-2017 Warfarin (Coumadin) 5 mg tab let Discontinued 5 mg PO daily 60 3 June 18, 2017 2:04pm October 22, 2017 6:26pm Take 5mg (one tablet) 3 days a week and 2.5mg (half a tablet) 4 days a week Please contact the information source for Protocol details. Start: 06-18-2017 End: 10-22-2017 zinc gluconate 50 mg oral ta blet (20 sources) Start: 05-28-2015 End: 04-14-2023 Comment on above: Take 50 mg by mouth once daily. (20 sources) Start: 01-24-2023 End: 04-14-2023 Start: 01-24-2023 Start: 12-19-2022 End: 05-08-2023 Start: 12-19-2022 End: 05-08-2023 Start: 12-19-2022 Start: 11-02-2020 End: 11-02-2020 Start: 10-02-2020 End: 10-11-2020 Start: 02-07-2016 Start: 05-28-2015 Problems Active Problems Problem Classification Problem Date Documented Da te Episodic/Chronic Acute and unspecified renal failure (20 sources) Injury of kidney; Translations: [Acute kidney failure, unspecified] 12-03-2022 Episodic Acute cerebrovascular disease (20 sources) Intracranial hemorrhage; Translations: [Nontraumatic intracranial hemorrhage, unspecified] Onset: 3 01-03-2023 Chronic Alcohol-related disorders (20 sources) Alcohol abuse; Translations: [Alcohol abuse, uncomplicated] 11-02-2020 Chronic Allergic reactions (20 sources) Inflammatory dermatosis; Translations: [Dermatitis, unspecified] 08-20-2023 Episodic Aspiration pneumonitis; food/vomitus (20 sources) Aspiration pneumonia; Translations: [Pneumonitis due to inhalation of food and vomit] 06-21-2023 Episodic Bacterial infection; unspecified site (20 sources) Clostridioides difficile infection; Translations: [Other bacterial infections of unspecified site] 11-02-2020 Episodic Comment on above: 1. Postural dizzines s with near syncope likely secondary to Acute GI losses secondary to Acute Sepsis secondary to Acute Clostridium Difficile Colitis2. Recent VATS, CT placement secondary to empyema with residual small BL pleural effusions (thoracentesis 09/11/2020 with strep and Prevotella s/p completion daptomycin, CT of the chest upon presentation with no residual infection)3. PAF4. GERD with history of GI bleed5. Chronic anemia6. Ulcerative colitis7. CAD8. Hypertension9. [id number]. Hypothyroidism Cardiac dysrhythmias (20 sources) Atrial fibrillation; Translations: [Atrial fibrillation and flutter ] Onset: 1 10-02-2020 Chronic Comment on above: DCCV on 05/09/2020; ROSI cardioversion at [facility] in September 2020; Cardiac dysrhythmias (20 sources) Palpitations; Translations: [Palpitations] 06-20-2023 Episodic Chronic kidney disease (20 sources) Chronic kidney disease stage 4; Translations: [Chronic kidney disease] Onset: 5 Chronic Chronic obstructive pulmonary disease and bronchiectasis (3 sources) Chronic obstructive lung disease; Translations: [Chronic obstructive pulmonary disease, unspecified] Onset: 3 01-09-2023 Chronic Chronic ulcer of skin (20 sources) Non-pressure 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; Translations: [Non-pressure chronic ulcer of left heel or midfoot with fat layer exposed] 04-16-2023 Chronic Coagulation and hemorrhagic disorders (20 sources) Thrombocytopenic disorder; Translations: [Thrombocytopenia, unspecified] 07-30-2017 Chronic Conditions associated with dizziness or vertigo (20 sources) Postural dizziness; Translations: [Dizziness and giddiness] 10-30-2020 Episodic Congestive heart failure; nonhypertensive (20 sources) Right ventricular failure; Translations: [Right heart failure, unspecified] Onset: 5 10-03-2020 Chronic Coronary atherosclerosis and other heart disease (20 sources) Coronary arteriosclerosis; Translations: [Atherosclerotic heart disease of enterprise coronary artery without angina pectoris] Onset: 3 05-20-2022 Chronic Comment on above: CABG x2- ZARAGOZA to LAD , Aorto post descending coronary artery to revers SVG 02/12/17; atherectomy to ostial RCA, LINDY to Prox/Mid RCA 04/2009 Deficiency and other anemia (20 sources) Pancytopenia; Translations: [Other pancytopenia] 04-03-2022 Chronic Comment on above: Mild, no blast cells . Flow cytometry on 03/28/2022 was normal. Deficiency and other anemia (20 sources) Other pancytopenia; Translations: [Other pancytopenia] Onset: 5 Chronic Deficiency and other anemia (2 sources) Anemia in chronic kidney disease; Translations: [Anemia in chronic kidney disease] Onset: 5 Chronic Deficiency and other anemia (1 source) Macrocytic anemia; Translations: [Macrocytic anemia] Episodic Deficiency and other anemia (20 sources) Anemia; Translations: [Anemia, unspecified] 04-03-2022 Episodic Comment on above: HGB 10.2 today. Deficiency and other anemia (20 sources) Anemia, unspecified; Translations: [Anemia, unspecified] Onset: 5 Episodic Deficiency and other anemia (20 sources) Iron deficiency anemia; Translations: [Iron deficiency anemia, unspecified] 12-03-2022 Episodic Comment on above: Hgb is 9.9 today. Ir on profile is normal.Has responded to Injectafer. Hgb is 10.2 today. I reema profile is normal. Deficiency and other anemia (16 sources) Iron deficiency anemia, unspecified; Translations: [Iron deficiency anemia, unspecified] Onset: 5 12-03-2022 Episodic Disorders of lipid metabolism (20 sources) Hypercholesterolemia; Translations: [Pure hypercholesterolemia, unspecified] Onset: 3 07-30-2017 Chronic E Codes: Fall (20 sources) Fall; Translations: [Unspecified fall, initial encounter] 05-19-2021 Episodic Esophageal disorders (20 sources) Gastroesophageal reflux disease; Translations: [Gastro-esophageal reflux disease without esophagitis] 11-02-2020 Chronic Essential hypertension (20 sources) Essential hypertension; Translations: [Essential (primary) hypertension] Onset: 3 04-23-2021 Chronic Comment on above: CONTROLLED ON MED Fever of unknown origin (20 sources) Fever; Translations: [Fever, unspecified] 11-29-2022 Episodic Fracture of neck of femur (hip) (20 sources) Closed avulsion fracture of greater trochanter of femur; Translations: [Displaced fracture of greater trochanter of unspecified femur, initial encounter for closed fracture] Onset: 3 05-19-2021 Episodic Gastrointestinal hemorrhage (20 sources) Upper gastrointestinal bleeding; Translations: [Gastrointestinal hemorrhage, unspecified] 04-15-2018 Episodic Heart valve disorders (20 sources) Mitral valve regurgitation; Translations: [Nonrheumatic mitral (valve) insufficiency] 06-05-2022 Chronic Intracranial injury (1 source) Intraparenchymal hematoma of brain; Translations: [Intraparenchymal hematoma of right side of brain due to trauma, with unknown loss of consciousness status, initial encounter ([facility])] 01-20-2023 Episodic Malaise and fatigue (20 sources) Asthenia; Translations: [Other malaise] 11-02-2020 Episodic Nutritional deficiencies (3 sources) Malnutrition (calorie); Translations: [Moderate protein-calorie malnutrition] Onset: 3 01-09-2023 Chronic Occlusion or stenosis of precerebral arteries (20 sources) Carotid artery stenosis; Translations: [Occlusion and stenosis of unspecified carotid artery] 11-02-2020 Chronic Open wounds of extremities (20 sources) Laceration of lower limb; Translations: [Laceration without foreign body, right lower leg, initial encounter] 06-06-2023 Episodic Open wounds of head; neck; and trunk (20 sources) Tear of skin; Translations: [Skin tear] Onset: 3 11-29-2022 Episodic Other aftercare (20 sources) Long-term current use of anticoagulant; Translations: [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 Other circulatory disease (3 sources) Arterial insufficiency; Translations: [Stricture of artery] Onset: 3 01-09-2023 Chronic Other circulatory disease (8 sources) Stricture of artery; Translations: [Stricture of artery] Onset: 0 06-25-2023 Chronic Other circulatory disease (20 sources) Carotid bruit; Translations: [Other specified symptoms and signs involving the circulatory and respiratory systems] 04-15-2018 Episodic Other circulatory disease (20 sources) H/O: heart disorder; Translations: [Personal history of other diseases of the circulatory system] 07-30-2017 Episodic Other circulatory disease (20 sources) H/O: hypertension; Translations: [Personal history of other diseases of the circulatory system] 01-03-2023 Episodic Other diseases of kidney and ureters (20 sources) Acute renal insufficiency; Translations: [Disorder of kidney and ureter, unspecified] 11-29-2022 Episodic Other diseases of kidney and ureters (17 sources) Disorder of kidney and ureter, unspecified; Translations: [Unspecified disorder of kidney and ureter] 11-29-2022 Episodic Other ear and sense organ disorders (20 sources) Does use hearing aid; Translations: [Presence of external hearing-aid] 05-28-2022 Episodic Other ear and sense organ disorders (20 sources) Impacted cerumen; Translations: [Impacted cerumen, bilateral] 05-28-2022 Episodic Other hematologic conditions (20 sources) Raised cardiac enzyme or marker; Translations: [Other specified abnormalities of plasma proteins] 11-29-2022 Episodic Other hematologic conditions (2 sources) Other specified abnormalities of plasma proteins; Translations: [Other abnormal blood chemistry] 11-29-2022 Episodic Other injuries and conditions due to external causes (20 sources) Systemic inflammatory response syndrome; Translations: [Systemic inflammatory response syndrome (SIRS) of non-infectious origin without acute organ dysfunction] 10-30-2020 Episodic Other injuries and conditions due to external causes (20 sources) Closed injury of head; Translations: [Unspecified injury of head, initial encounter] 01-03-2023 Episodic Other injuries and conditions due to external causes (16 sources) Excoriation of skin; Translations: [Unspecified multiple injuries, initial encounter] 08-20-2023 Episodic Other injuries and conditions due to external causes (5 sources) Unspecified multiple injuries, initial encounter; Translations: [Other and unspecified superficial injury of other, multiple, and unspecified sites, without mention of infection] 08-20-2023 Episodic Peripheral and visceral atherosclerosis (20 sources) Mesenteric artery stenosis; 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] Onset: 5 06-05-2022 Chronic Pleurisy; pneumothorax; pulmonary collapse (20 sources) Hydropneumothorax; Translations: [Pneumothorax] 10-03-2020 Episodic Pneumonia (except that caused by tuberculosis or sexually transmitted disease) (20 sources) Pleural effusion associated with pulmonary infection; Translations: [Pneumonia] Onset: 1 09-19-2020 Episodic Pulmonary heart disease (20 sources) Pulmonary hypertension; Translations: [Pulmonary hypertension, unspecified] 06-24-2023 Chronic Regional enteritis and ulcerative colitis (20 sources) Ulcerative colitis; Translations: [Ulcerative colitis, unspecified, without complications] 11-02-2020 Chronic Residual codes; unclassified (20 sources) Edema; Translations: [Edema, unspecified] 06-04-2023 Episodic Residual codes; unclassified (20 sources) Edema, unspecified; Translations: [Edema] 06-04-2023 Episodic Respiratory failure; insufficiency; arrest (adult) (20 sources) Acute respiratory failure; Translations: [Acute respiratory failure with hypoxia] Onset: 5 06-21-2023 Episodic Skin and subcutaneous tissue infections (20 sources) Cellulitis of right lower limb; Translations: [Cellulitis of right lower limb] 06-04-2023 Episodic Syncope (20 sources) Near syncope; Translations: [Syncope and collapse] 11-02-2020 Episodic Thyroid disorders (20 sources) Hypothyroidism; Translations: [Hypothyroidism, unspecified] Onset: 11-02-2020 Chronic Unclassified (4 sources) Long-term 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); Translations: [Intraparenchymal hematoma of right side of brain due to trauma, with unknown loss of consciousness status, initial encounter ([facility])] Onset: 3 Past or Other Problems Problem Classification Problem Date Documented Date Episodic/Chronic Abdominal hernia (20 sources) Umbilical hernia; Translations: [Umbilical hernia without obstruction or gangrene] Onset: 01-10-2025 04-20-2021 Episodic Acute posthemorrhagic anemia (3 sources) Acute posthemorrhagic anemia; Translations: [Acute posthemorrhagic anemia] Onset: 01-06-2023 01-09-2023 Episodic Coronary atherosclerosis and other heart disease (4 sources) Presence of coronary angioplasty implant and graft; Translations: [Percutaneous transluminal coronary angioplasty status] Onset: 06-30-2008 06-05-2022 Episodic Fluid and electrolyte disorders (20 sources) Hyperkalemia; Translations: [Hyperkalemia] Onset: 12-10-2024 06-20-2023 Episodic Other screening for suspected conditions (not mental disorders or infectious disease) (1 source) Abnormal finding of blood chemistry, unspecified; Translations: [Abnormal finding of blood chemistry, unspecified] Onset: 12-21-2024 Episodic Other skin disorders (3 sources) Finding of integrity of skin; Translations: [Unspecified skin changes] Onset: 01-03-2023 01-09-2023 Episodic Results Test Name Value Interpretation Reference Range Facility CBC W/Diff, Automatedon 04-30 Absolute Lymph 0.85 X10 3/uL Normal 0.83-4.51 [facility] Comment on above: Performed By: #### L 100.0100, L501.2450, L500.4050 ####[facility] [address] [place], [address] Absolute Neut 5.1 X10 3/uL Normal 2.0-7.7 [facility] Comment on above: Performed By: #### L 100.0100, L501.2450, L500.4050 ####[facility] [address] [place], [address] Basophils/100 WBC (Bld) 0.7 % Normal 0-1 [facility] Comment on above: Performed By: #### L 100.0100, L501.2450, L500.4050 ####[facility] [address] [place], [address] Eosinophils/100 WBC (Bld) 5.1 % High 0-5 [facility] Comment on above: Performed By: #### L 100.0100, L501.2450, L500.4050 ####[facility] [address] [place], [address] Erythrocyte distribution width (RBC) [Ratio] 13.2 % Normal 11.6-14.6 [facility] Comment on above: Performed By: #### L 100.0100, L501.2450, L500.4050 ####[facility] [address] [place], [address] Hematocrit (Bld) [Volume fraction] 33.3 % Low 40-54 [facility] Comment on above: Performed By: #### L 100.0100, L501.2450, L500.4050 ####[facility] [address] [place], [address] Hemoglobin (Bld) [Mass/Vol] 11.5 g/dL Low 13.0-16.5 [facility] Comment on above: Performed By: #### L 100.0100, L501.2450, L500.4050 ####[facility] [address] [place], [address] IG% 0.100 Normal 0.0-0.9 [facility] Comment on above: Result Comment: IG% - Immature Granulocytes (promyelocytes, myelocytes andmetamyelocytes) > 1% indicates that a LEFT SHIFT is Present. Performed By: #### L 100.0100, L501.2450, L500.4050 ####[facility] [address] [place], [address] Lymphocytes/100 WBC (Bld) 12.1 % Low 19-41 [facility] Comment on above: Performed By: #### L 100.0100, L501.2450, L500.4050 ####[facility] [address] [place], [address] MCH (RBC) [Entitic mass] 34.3 pg High 27.0-32.0 [facility] Comment on above: Performed By: #### L 100.0100, L501.2450, L500.4050 ####[facility] [address] [place], [address] MCHC (RBC) [Mass/Vol] 34.5 g/dL Normal 32-36 [facility] Comment on above: Performed By: #### L 100.0100, L501.2450, L500.4050 ####[facility] [address] [place], [address] MCV (RBC) [Entitic vol] 99.4 fL High 80-94 [facility] Comment on above: Performed By: #### L 100.0100, L501.2450, L500.4050 ####[facility] [address] [place], [address] Monocytes/100 WBC (Bld) 9.0 % Normal 0-10 [facility] Comment on above: Performed By: #### L 100.0100, L501.2450, L500.4050 ####[facility] [address] [place], [address] Neutrophils/100 WBC (Bld) 73.0 % High 47-70 [facility] Comment on above: Performed By: #### L 100.0100, L501.2450, L500.4050 ####[facility] [address] [place], [address] Nucleated RBC (Bld) [#/Vol] 0 10*3/uL Normal 0-5 [facility] Comment on above: Performed By: #### L 100.0100, L501.2450, L500.4050 ####[facility] [address] [place], [address] Platelet mean volume (Bld) [Entitic vol] 9.2 fL Normal 6.2-12.0 [facility] Comment on above: Performed By: #### L 100.0100, L501.2450, L500.4050 ####[facility] [address] [place], [address] Platelets (Bld) [#/Vol] 149 10*3/uL Low 150-450 [facility] Comment on above: Performed By: #### L 100.0100, L501.2450, L500.4050 ####[facility] [address] [place], [address] RBC (Bld) [#/Vol] 3.35 10*6/uL Low 4.6-6.2 [facility] Comment on above: Performed By: #### L 100.0100, L501.2450, L500.4050 ####[facility] [address] [place], [address] RDW SD 48.3 fl High 35.1-43.9 [facility] Comment on above: Performed By: #### L 100.0100, L501.2450, L500.4050 ####[facility] [address] [place], [address] WBC (Bld) [#/Vol] 7.0 10*3/uL Normal 4.4-11.0 [facility] Comment on above: Performed By: #### L 100.0100, L501.2450, L500.4050 ####[facility] [address] [place], [address] Comprehensive Metabolic Prof ilon 05-11-2025 Albumin [Mass/Vol] 4.2 g/dL Normal 3.4-4.8 [facility] Comment on above: Performed By: #### L 100.0100, L501.2450, L500.4050 ####[facility] [address] [place], [address] Albumin/Globulin [Mass ratio] 1.8 {ratio} Normal 0.9-2.4 [facility] Comment on above: Performed By: #### L 100.0100, L501.2450, L500.4050 ####[facility] [address] [place], [address] ALK PHOS 81 U/L Normal 40-129 [facility] Comment on above: Performed By: #### L 100.0100, L501.2450, L500.4050 ####[facility] [address] [place], [address] ALT [Catalytic activity/Vol] 18 U/L Normal <=46 [facility] Comment on above: Performed By: #### L 100.0100, L501.2450, L500.4050 ####[facility] [address] [place], [address] AST [Catalytic activity/Vol] 17 U/L Normal <=37 [facility] Comment on above: Performed By: #### L 100.0100, L501.2450, L500.4050 ####[facility] [address] [place], [address] Bilirubin [Mass/Vol] 0.38 mg/dL Normal 0.00-1.30 [facility] Comment on above: Performed By: #### L 100.0100, L501.2450, L500.4050 ####[facility] [address] [place], [address] BUN/CRE 28.2 RATIO High 10-20 [facility] Comment on above: Performed By: #### L 100.0100, L501.2450, L500.4050 ####[facility] [address] [place], [address] Calcium [Mass/Vol] 9.4 mg/dL Normal 7.6-11.0 [facility] Comment on above: Performed By: #### L 100.0100, L501.2450, L500.4050 ####[facility] [address] [place], [address] Chloride [Moles/Vol] 98 mmol/L Normal 98-108 [facility] Comment on above: Performed By: #### L 100.0100, L501.2450, L500.4050 ####[facility] [address] [place], [address] CO2 [Moles/Vol] 28.1 mmol/L Normal 21.0-32.0 [facility] Comment on above: Performed By: #### L 100.0100, L501.2450, L500.4050 ####[facility] [address] [place], [address] Creatinine [Mass/Vol] 3.65 mg/dL High 0.70-1.20 [facility] Comment on above: Performed By: #### L 100.0100, L501.2450, L500.4050 ####[facility] [address] [place], [address] ECRCL 15.83 ml/min Low 50-250 [facility] Comment on above: Performed By: #### L 100.0100, L501.2450, L500.4050 ####[facility] [address] [place], [address] GAP 14 Normal 5-15 [facility] Comment on above: Performed By: #### L 100.0100, L501.2450, L500.4050 ####[facility] [address] [place], [address] GFR/1.73 sq M.predicted among non-blacks MDRD (S/P/Bld) [Vol rate/Area] 16 mL/min/{1.73_m2} Low >60 [facility] Comment on above: Result Comment: mL/m in/1.73m2 CKD-EPI Creatinine Equation (2020) Performed By: #### L 100.0100, L501.2450, L500.4050 ####[facility] [address] [place], [address] Globulin (S) [Mass/Vol] 2.4 g/dL Normal 2.2-4.2 [facility] Comment on above: Performed By: #### L 100.0100, L501.2450, L500.4050 ####[facility] [address] [place], [address] Glucose [Mass/Vol] 131 mg/dL High 70-99 [facility] Comment on above: Performed By: #### L 100.0100, L501.2450, L500.4050 ####[facility] [address] [place], [address] Potassium [Moles/Vol] 4.1 mmol/L Normal 3.3-5.1 [facility] Comment on above: Performed By: #### L 100.0100, L501.2450, L500.4050 ####[facility] [address] [place], [address] Sodium [Moles/Vol] 140 mmol/L Normal 133-145 [facility] Comment on above: Performed By: #### L 100.0100, L501.2450, L500.4050 ####[facility] [address] [place], [address] T PROT 6.6 g/dL Normal 5.9-8.4 [facility] Comment on above: Performed By: #### L 100.0100, L501.2450, L500.4050 ####[facility] [address] [place], [address] Urea nitrogen [Mass/Vol] 103 mg/dL Invalid Interpretation Code 4- [facility] Comment on above: Result Comment: Crit ical Result(s) Called at: 0959 05/11/2025 by: MARTY??Results read back by same. Performed By: #### L 100.0100, L501.2450, L500.4050 ####[facility] [address] [place], [address] Emergency Department Summary on 05-11-2025 Emergency Department Summary Normal [facility] Kidney and Bladderon 025 Kidney and Bladder Normal [facility] Lipaseon 05-11-2025 Lipase [Catalytic activity/Vol] 84 U/L High 13-75 [facility] Comment on above: Result Comment: Louie pineda note:LIPASE revised reference range effective 22.New Lipase methodology. Expected to produce lower valuesthan the previous assay method.NEW Reference Range: 13 - 75 U/L Performed By: #### L 100.0100, L501.2450, L500.4050 ####[facility] [address] [place], [address] Urinalysis, Completeon 05-11 BACTERIA Normal None Seen [facility] Comment on above: Order Comment: CLEAN CATCH Result Comment: PT D EPARTED ER Performed By: #### L 400.0001 ####[facility] [address] [place], [address] BILIRUBIN URINE Normal Negative [facility] Comment on above: Order Comment: CLEAN CATCH Result Comment: PT D EPARTED ER Performed By: #### L 400.0001 ####[facility] [address] [place], [address] Clarity (U) Normal Clear [facility] Comment on above: Order Comment: CLEAN CATCH Result Comment: PT D EPARTED ER Performed By: #### L 400.0001 ####[facility] [address] [place], [address] Color (U) Normal Yellow [facility] Comment on above: Order Comment: CLEAN CATCH Result Comment: PT D EPARTED ER Performed By: #### L 400.0001 ####[facility] [address] [place], [address] EPI,SQUAMOUS Normal 0-5 [facility] Comment on above: Order Comment: CLEAN CATCH Result Comment: PT D EPARTED ER Performed By: #### L 400.0001 ####[facility] [address] [place], [address] GLUCOSE, UR Normal Normal [facility] Comment on above: Order Comment: CLEAN CATCH Result Comment: PT D EPARTED ER Performed By: #### L 400.0001 ####[facility] [address] [place], [address] KETONE UR Normal Negative [facility] Comment on above: Order Comment: CLEAN CATCH Result Comment: PT D EPARTED ER Performed By: #### L 400.0001 ####[facility] [address] [place], [address] LEUK ESTERASE Normal Negative [facility] Comment on above: Order Comment: CLEAN CATCH Result Comment: PT D EPARTED ER Performed By: #### L 400.0001 ####[facility] [address] [place], [address] Mucus Ql (Urine sed) Normal [facility] Comment on above: Order Comment: CLEAN CATCH Result Comment: PT D EPARTED ER Performed By: #### L 400.0001 ####[facility] [address] [place], [address] Nitrite Ql (U) Normal Negative [facility] Comment on above: Order Comment: CLEAN CATCH Result Comment: PT D EPARTED ER Performed By: #### L 400.0001 ####[facility] [address] [place], [address] OCCULT BLOOD-UR Normal Negative [facility] Comment on above: Order Comment: CLEAN CATCH Result Comment: PT D EPARTED ER Performed By: #### L 400.0001 ####[facility] [address] [place], [address] pH UR Normal 5.0 - 8.0 [facility] Comment on above: Order Comment: CLEAN CATCH Result Comment: PT D EPARTED ER Performed By: #### L 400.0001 ####[facility] [address] [place], [address] PROT DIPSTX Normal Negative [facility] Comment on above: Order Comment: CLEAN CATCH Result Comment: PT D EPARTED ER Performed By: #### L 400.0001 ####[facility] [address] [place], [address] RBC Normal 0-5 [facility] Comment on above: Order Comment: CLEAN CATCH Result Comment: PT D EPARTED ER Performed By: #### L 400.0001 ####[facility] [address] [place], [address] SP.GR. DIPSTX Normal 1.002-1.03 0 [facility] Comment on above: Order Comment: CLEAN CATCH Result Comment: PT D EPARTED ER Performed By: #### L 400.0001 ####[facility] [address] [place], [address] UR Preservative Normal [facility] Comment on above: Order Comment: CLEAN CATCH Result Comment: PT D EPARTED ER Performed By: #### L 400.0001 ####[facility] [address] [place], [address] UROBILI Normal Normal [facility] Comment on above: Order Comment: CLEAN CATCH Result Comment: PT D EPARTED ER Performed By: #### L 400.0001 ####[facility] [address] [place], [address] WBC Normal 0-5 [facility] Comment on above: Order Comment: CLEAN CATCH Result Comment: PT D EPARTED ER Performed By: #### L 400.0001 ####[facility] [address] [place], [address] Basic Metabolic Profile (BMP )on 05-06-2025 BUN Normal 4-19 [facility] Comment on above: Result Comment: Canc elled via OM: Order cancelled - Patient discharged Performed By: #### L 100.0100, L500.2500 ####[facility] [address] [place], [address] BUN/CRE Normal 10-20 [facility] Comment on above: Result Comment: Canc elled via OM: Order cancelled - Patient discharged Performed By: #### L 100.0100, L500.2500 ####[facility] [address] [place], [address] Calcium Normal 7.6-11.0 [facility] Comment on above: Result Comment: Canc elled via OM: Order cancelled - Patient discharged Performed By: #### L 100.0100, L500.2500 ####[facility] [address] [place], [address] CL Normal 98-108 [facility] Comment on above: Result Comment: Canc elled via OM: Order cancelled - Patient discharged Performed By: #### L 100.0100, L500.2500 ####[facility] [address] [place], [address] CO2 Normal 21.0-32.0 [facility] Comment on above: Result Comment: Canc elled via OM: Order cancelled - Patient discharged Performed By: #### L 100.0100, L500.2500 ####[facility] [address] [place], [address] CREAT,SERUM Normal 0.70-1.20 [facility] Comment on above: Result Comment: Canc elled via OM: Order cancelled - Patient discharged Performed By: #### L 100.0100, L500.2500 ####[facility] [address] [place], [address] eGFR Normal >60 [facility] Comment on above: Result Comment: Canc elled via OM: Order cancelled - Patient discharged Performed By: #### L 100.0100, L500.2500 ####[facility] [address] [place], [address] GAP Normal 5-15 [facility] Comment on above: Result Comment: Canc elled via OM: Order cancelled - Patient discharged Performed By: #### L 100.0100, L500.2500 ####[facility] [address] [place], [address] GLU Normal 70-99 [facility] Comment on above: Result Comment: Canc elled via OM: Order cancelled - Patient discharged Performed By: #### L 100.0100, L500.2500 ####[facility] [address] [place], [address] Potassium Normal 3.3-5.1 [facility] Comment on above: Result Comment: Canc elled via OM: Order cancelled - Patient discharged Performed By: #### L 100.0100, L500.2500 ####[facility] [address] [place], [address] Basic Metabolic Profile (BMP) Normal 133-145 [facility] Comment on above: Result Comment: Canc elled via OM: Order cancelled - Patient discharged Performed By: #### L 100.0100, L500.2500 ####[facility] [address] [place], [address] CBC W/Diff, Automatedon 11-0 Absolute Neut Normal 2.0-7.7 [facility] Comment on above: Result Comment: Canc elled via OM: Order cancelled - Patient discharged Performed By: #### L 100.0100, L500.2500 ####[facility] [address] [place], [address] HCT Normal 40-54 [facility] Comment on above: Result Comment: Canc elled via OM: Order cancelled - Patient discharged Performed By: #### L 100.0100, L500.2500 ####[facility] [address] [place], [address] HGB Normal 13.0-16.5 [facility] Comment on above: Result Comment: Canc elled via OM: Order cancelled - Patient discharged Performed By: #### L 100.0100, L500.2500 ####[facility] [address] [place], [address] MCH Normal 27.0-32.0 [facility] Comment on above: Result Comment: Canc elled via OM: Order cancelled - Patient discharged Performed By: #### L 100.0100, L500.2500 ####[facility] [address] [place], [address] MCHC Normal 32-36 [facility] Comment on above: Result Comment: Canc elled via OM: Order cancelled - Patient discharged Performed By: #### L 100.0100, L500.2500 ####[facility] [address] [place], [address] MCV Normal 80-94 [facility] Comment on above: Result Comment: Canc elled via OM: Order cancelled - Patient discharged Performed By: #### L 100.0100, L500.2500 ####[facility] [address] [place], [address] NEUT% Normal 47-70 [facility] Comment on above: Result Comment: Canc elled via OM: Order cancelled - Patient discharged Performed By: #### L 100.0100, L500.2500 ####[facility] [address] [place], [address] PLT Normal 150-450 [facility] Comment on above: Result Comment: Canc elled via OM: Order cancelled - Patient discharged Performed By: #### L 100.0100, L500.2500 ####[facility] [address] [place], [address] RBC Normal 4.6-6.2 [facility] Comment on above: Result Comment: Canc elled via OM: Order cancelled - Patient discharged Performed By: #### L 100.0100, L500.2500 ####[facility] [address] [place], [address] RDW CV Normal 11.6-14.6 [facility] Comment on above: Result Comment: Canc elled via OM: Order cancelled - Patient discharged Performed By: #### L 100.0100, L500.2500 ####[facility] [address] [place], [address] RDW SD Normal 35.1-43.9 [facility] Comment on above: Result Comment: Canc elled via OM: Order cancelled - Patient discharged Performed By: #### L 100.0100, L500.2500 ####[facility] [address] [place], [address] WBC Normal 4.4-11.0 [facility] Comment on above: Result Comment: Canc elled via OM: Order cancelled - Patient discharged Performed By: #### L 100.0100, L500.2500 ####[facility] [address] [place], [address] Basic Metabolic Profile (BMP )on 05-05-2025 BUN Normal 4-19 [facility] Comment on above: Result Comment: Canc elled via OM: Order cancelled - Patient discharged Performed By: #### L 500.2500, L100.0100 ####[facility] [address] [place], [address] BUN/CRE Normal 10-20 [facility] Comment on above: Result Comment: Canc elled via OM: Order cancelled - Patient discharged Performed By: #### L 500.2500, L100.0100 ####[facility] [address] [place], [address] Calcium Normal 7.6-11.0 [facility] Comment on above: Result Comment: Canc elled via OM: Order cancelled - Patient discharged Performed By: #### L 500.2500, L100.0100 ####[facility] [address] [place], [address] CL Normal 98-108 [facility] Comment on above: Result Comment: Canc elled via OM: Order cancelled - Patient discharged Performed By: #### L 500.2500, L100.0100 ####[facility] [address] [place], [address] CO2 Normal 21.0-32.0 [facility] Comment on above: Result Comment: Canc elled via OM: Order cancelled - Patient discharged Performed By: #### L 500.2500, L100.0100 ####[facility] [address] [place], [address] CREAT,SERUM Normal 0.70-1.20 [facility] Comment on above: Result Comment: Canc elled via OM: Order cancelled - Patient discharged Performed By: #### L 500.2500, L100.0100 ####[facility] [address] [place], [address] eGFR Normal >60 [facility] Comment on above: Result Comment: Canc elled via OM: Order cancelled - Patient discharged Performed By: #### L 500.2500, L100.0100 ####[facility] [address] [place], [address] GAP Normal 5-15 [facility] Comment on above: Result Comment: Canc elled via OM: Order cancelled - Patient discharged Performed By: #### L 500.2500, L100.0100 ####[facility] [address] [place], [address] GLU Normal 70-99 [facility] Comment on above: Result Comment: Canc elled via OM: Order cancelled - Patient discharged Performed By: #### L 500.2500, L100.0100 ####[facility] [address] [place], [address] Potassium Normal 3.3-5.1 [facility] Comment on above: Result Comment: Canc elled via OM: Order cancelled - Patient discharged Performed By: #### L 500.2500, L100.0100 ####[facility] [address] [place], [address] Basic Metabolic Profile (BMP) Normal 133-145 [facility] Comment on above: Result Comment: Canc elled via OM: Order cancelled - Patient discharged Performed By: #### L 500.2500, L100.0100 ####[facility] [address] [place], [address] CBC W/Diff, Automatedon 11-0 -2024 Absolute Neut Normal 2.0-7.7 [facility] Comment on above: Result Comment: Canc elled via OM: Order cancelled - Patient discharged Performed By: #### L 500.2500, L100.0100 ####[facility] [address] [place], [address] HCT Normal 40-54 [facility] Comment on above: Result Comment: Canc elled via OM: Order cancelled - Patient discharged Performed By: #### L 500.2500, L100.0100 ####[facility] [address] [place], [address] HGB Normal 13.0-16.5 [facility] Comment on above: Result Comment: Canc elled via OM: Order cancelled - Patient discharged Performed By: #### L 500.2500, L100.0100 ####[facility] [address] [place], [address] MCH Normal 27.0-32.0 [facility] Comment on above: Result Comment: Canc elled via OM: Order cancelled - Patient discharged Performed By: #### L 500.2500, L100.0100 ####[facility] [address] [place], [address] MCHC Normal 32-36 [facility] Comment on above: Result Comment: Canc elled via OM: Order cancelled - Patient discharged Performed By: #### L 500.2500, L100.0100 ####[facility] [address] [place], [address] MCV Normal 80-94 [facility] Comment on above: Result Comment: Canc elled via OM: Order cancelled - Patient discharged Performed By: #### L 500.2500, L100.0100 ####[facility] [address] [place], [address] NEUT% Normal 47-70 [facility] Comment on above: Result Comment: Canc elled via OM: Order cancelled - Patient discharged Performed By: #### L 500.2500, L100.0100 ####[facility] [address] [place], [address] PLT Normal 150-450 [facility] Comment on above: Result Comment: Canc elled via OM: Order cancelled - Patient discharged Performed By: #### L 500.2500, L100.0100 ####[facility] [address] [place], [address] RBC Normal 4.6-6.2 [facility] Comment on above: Result Comment: Canc elled via OM: Order cancelled - Patient discharged Performed By: #### L 500.2500, L100.0100 ####[facility] [address] [place], [address] RDW CV Normal 11.6-14.6 [facility] Comment on above: Result Comment: Canc elled via OM: Order cancelled - Patient discharged Performed By: #### L 500.2500, L100.0100 ####[facility] [address] [place], [address] RDW SD Normal 35.1-43.9 [facility] Comment on above: Result Comment: Canc elled via OM: Order cancelled - Patient discharged Performed By: #### L 500.2500, L100.0100 ####[facility] [address] [place], [address] WBC Normal 4.4-11.0 [facility] Comment on above: Result Comment: Canc elled via OM: Order cancelled - Patient discharged Performed By: #### L 500.2500, L100.0100 ####[facility] [address] [place], [address] Basic Metabolic Profile (BMP )on 05-04-2025 BUN Normal 4-19 [facility] Comment on above: Result Comment: Canc elled via OM: Order cancelled - Patient discharged Performed By: #### L 500.2500, L100.0100 ####[facility] [address] [place], [address] BUN/CRE Normal 10-20 [facility] Comment on above: Result Comment: Canc elled via OM: Order cancelled - Patient discharged Performed By: #### L 500.2500, L100.0100 ####[facility] [address] [place], [address] Calcium Normal 7.6-11.0 [facility] Comment on above: Result Comment: Canc elled via OM: Order cancelled - Patient discharged Performed By: #### L 500.2500, L100.0100 ####[facility] [address] [place], [address] CL Normal 98-108 [facility] Comment on above: Result Comment: Canc elled via OM: Order cancelled - Patient discharged Performed By: #### L 500.2500, L100.0100 ####[facility] [address] [place], [address] CO2 Normal 21.0-32.0 [facility] Comment on above: Result Comment: Canc elled via OM: Order cancelled - Patient discharged Performed By: #### L 500.2500, L100.0100 ####[facility] [address] [place], [address] CREAT,SERUM Normal 0.70-1.20 [facility] Comment on above: Result Comment: Canc elled via OM: Order cancelled - Patient discharged Performed By: #### L 500.2500, L100.0100 ####[facility] [address] [place], [address] eGFR Normal >60 [facility] Comment on above: Result Comment: Canc elled via OM: Order cancelled - Patient discharged Performed By: #### L 500.2500, L100.0100 ####[facility] [address] [place], [address] GAP Normal 5-15 [facility] Comment on above: Result Comment: Canc elled via OM: Order cancelled - Patient discharged Performed By: #### L 500.2500, L100.0100 ####[facility] [address] [place], [address] GLU Normal 70-99 [facility] Comment on above: Result Comment: Canc elled via OM: Order cancelled - Patient discharged Performed By: #### L 500.2500, L100.0100 ####[facility] [address] [place], [address] Potassium Normal 3.3-5.1 [facility] Comment on above: Result Comment: Canc elled via OM: Order cancelled - Patient discharged Performed By: #### L 500.2500, L100.0100 ####[facility] [address] [place], [address] Basic Metabolic Profile (BMP) Normal 133-145 [facility] Comment on above: Result Comment: Canc elled via OM: Order cancelled - Patient discharged Performed By: #### L 500.2500, L100.0100 ####[facility] [address] [place], [address] CBC W/Diff, Automatedon 11-0 -2024 Absolute Neut Normal 2.0-7.7 [facility] Comment on above: Result Comment: Canc elled via OM: Order cancelled - Patient discharged Performed By: #### L 500.2500, L100.0100 ####[facility] [address] [place], [address] HCT Normal 40-54 [facility] Comment on above: Result Comment: Canc elled via OM: Order cancelled - Patient discharged Performed By: #### L 500.2500, L100.0100 ####[facility] [address] [place], [address] HGB Normal 13.0-16.5 [facility] Comment on above: Result Comment: Canc elled via OM: Order cancelled - Patient discharged Performed By: #### L 500.2500, L100.0100 ####[facility] [address] [place], [address] MCH Normal 27.0-32.0 [facility] Comment on above: Result Comment: Canc elled via OM: Order cancelled - Patient discharged Performed By: #### L 500.2500, L100.0100 ####[facility] [address] [place], [address] MCHC Normal 32-36 [facility] Comment on above: Result Comment: Canc elled via OM: Order cancelled - Patient discharged Performed By: #### L 500.2500, L100.0100 ####[facility] [address] [place], [address] MCV Normal 80-94 [facility] Comment on above: Result Comment: Canc elled via OM: Order cancelled - Patient discharged Performed By: #### L 500.2500, L100.0100 ####[facility] [address] [place], [address] NEUT% Normal 47-70 [facility] Comment on above: Result Comment: Canc elled via OM: Order cancelled - Patient discharged Performed By: #### L 500.2500, L100.0100 ####[facility] [address] [place], [address] PLT Normal 150-450 [facility] Comment on above: Result Comment: Canc elled via OM: Order cancelled - Patient discharged Performed By: #### L 500.2500, L100.0100 ####[facility] [address] [place], [address] RBC Normal 4.6-6.2 [facility] Comment on above: Result Comment: Canc elled via OM: Order cancelled - Patient discharged Performed By: #### L 500.2500, L100.0100 ####[facility] [address] [place], [address] RDW CV Normal 11.6-14.6 [facility] Comment on above: Result Comment: Canc elled via OM: Order cancelled - Patient discharged Performed By: #### L 500.2500, L100.0100 ####[facility] [address] [place], [address] RDW SD Normal 35.1-43.9 [facility] Comment on above: Result Comment: Canc elled via OM: Order cancelled - Patient discharged Performed By: #### L 500.2500, L100.0100 ####[facility] [address] [place], [address] WBC Normal 4.4-11.0 [facility] Comment on above: Result Comment: Canc elled via OM: Order cancelled - Patient discharged Performed By: #### L 500.2500, L100.0100 ####[facility] [address] [place], [address] 12 Lead EKGon 05-03-2025 12 Lead EKG Normal [facility] Basic Metabolic Profile (BMP )on 05-03-2025 BUN/CRE 28.0 RATIO High 10-20 [facility] Comment on above: Performed By: #### L 100.0100, L501.5200, L501.2300, L500.2500 ####[facility] [address] [place], [address] Calcium [Mass/Vol] 8.9 mg/dL Normal 7.6-11.0 [facility] Comment on above: Performed By: #### L 100.0100, L501.5200, L501.2300, L500.2500 ####[facility] [address] [place], [address] Chloride [Moles/Vol] 102 mmol/L Normal 98-108 [facility] Comment on above: Performed By: #### L 100.0100, L501.5200, L501.2300, L500.2500 ####[facility] [address] [place], [address] CO2 [Moles/Vol] 28.2 mmol/L Normal 21.0-32.0 [facility] Comment on above: Performed By: #### L 100.0100, L501.5200, L501.2300, L500.2500 ####[facility] [address] [place], [address] Creatinine [Mass/Vol] 3.51 mg/dL High 0.70-1.20 [facility] Comment on above: Performed By: #### L 100.0100, L501.5200, L501.2300, L500.2500 ####[facility] [address] [place], [address] ECRCL 16.46 ml/min Low 50-250 [facility] Comment on above: Performed By: #### L 100.0100, L501.5200, L501.2300, L500.2500 ####[facility] [address] [place], [address] GAP 13 Normal 5-15 [facility] Comment on above: Performed By: #### L 100.0100, L501.5200, L501.2300, L500.2500 ####[facility] [address] [place], [address] GFR/1.73 sq M.predicted among non-blacks MDRD (S/P/Bld) [Vol rate/Area] 17 mL/min/{1.73_m2} Low >60 [facility] Comment on above: Result Comment: mL/m in/1.73m2 CKD-EPI Creatinine Equation (2020) Performed By: #### L 100.0100, L501.5200, L501.2300, L500.2500 ####[facility] [address] [place], [address] Glucose [Mass/Vol] 106 mg/dL High 70-99 [facility] Comment on above: Performed By: #### L 100.0100, L501.5200, L501.2300, L500.2500 ####[facility] [address] [place], [address] Potassium [Moles/Vol] 3.2 mmol/L Low 3.3-5.1 [facility] Comment on above: Performed By: #### L 100.0100, L501.5200, L501.2300, L500.2500 ####[facility] [address] [place], [address] Sodium [Moles/Vol] 144 mmol/L Normal 133-145 [facility] Comment on above: Performed By: #### L 100.0100, L501.5200, L501.2300, L500.2500 ####[facility] [address] [place], [address] Urea nitrogen [Mass/Vol] 98 mg/dL High 4-19 [facility] Comment on above: Performed By: #### L 100.0100, L501.5200, L501.2300, L500.2500 ####[facility] [address] [place], [address] CBC W/Diff, Automatedon 11-0 4-2024 Absolute Lymph 0.56 X10 3/uL Low 0.83-4.51 [facility] Comment on above: Performed By: #### L 100.0100, L501.5200, L501.2300, L500.2500 ####[facility] [address] [place], [address] Absolute Neut 3.5 X10 3/uL Normal 2.0-7.7 [facility] Comment on above: Performed By: #### L 100.0100, L501.5200, L501.2300, L500.2500 ####[facility] [address] [place], [address] Basophils/100 WBC (Bld) 0.2 % Normal 0-1 [facility] Comment on above: Performed By: #### L 100.0100, L501.5200, L501.2300, L500.2500 ####[facility] [address] [place], [address] Eosinophils/100 WBC (Bld) 3.9 % Normal 0-5 [facility] Comment on above: Performed By: #### L 100.0100, L501.5200, L501.2300, L500.2500 ####[facility] [address] [place], [address] Erythrocyte distribution width (RBC) [Ratio] 13.3 % Normal 11.6-14.6 [facility] Comment on above: Performed By: #### L 100.0100, L501.5200, L501.2300, L500.2500 ####[facility] [address] [place], [address] Hematocrit (Bld) [Volume fraction] 28.7 % Low 40-54 [facility] Comment on above: Performed By: #### L 100.0100, L501.5200, L501.2300, L500.2500 ####[facility] [address] [place], [address] Hemoglobin (Bld) [Mass/Vol] 9.6 g/dL Low 13.0-16.5 [facility] Comment on above: Performed By: #### L 100.0100, L501.5200, L501.2300, L500.2500 ####[facility] [address] [place], [address] IG% 0.400 Normal 0.0-0.9 [facility] Comment on above: Result Comment: IG% - Immature Granulocytes (promyelocytes, myelocytes andmetamyelocytes) > 1% indicates that a LEFT SHIFT is Present. Performed By: #### L 100.0100, L501.5200, L501.2300, L500.2500 ####[facility] [address] [place], [address] Lymphocytes/100 WBC (Bld) 11.5 % Low 19-41 [facility] Comment on above: Performed By: #### L 100.0100, L501.5200, L501.2300, L500.2500 ####[facility] [address] [place], [address] MCH (RBC) [Entitic mass] 33.8 pg High 27.0-32.0 [facility] Comment on above: Performed By: #### L 100.0100, L501.5200, L501.2300, L500.2500 ####[facility] [address] [place], [address] MCHC (RBC) [Mass/Vol] 33.4 g/dL Normal 32-36 [facility] Comment on above: Performed By: #### L 100.0100, L501.5200, L501.2300, L500.2500 ####[facility] [address] [place], [address] MCV (RBC) [Entitic vol] 101.1 fL High 80-94 [facility] Comment on above: Performed By: #### L 100.0100, L501.5200, L501.2300, L500.2500 ####[facility] [address] [place], [address] Monocytes/100 WBC (Bld) 12.3 % High 0-10 [facility] Comment on above: Performed By: #### L 100.0100, L501.5200, L501.2300, L500.2500 ####[facility] [address] [place], [address] Neutrophils/100 WBC (Bld) 71.7 % High 47-70 [facility] Comment on above: Performed By: #### L 100.0100, L501.5200, L501.2300, L500.2500 ####[facility] [address] [place], [address] Nucleated RBC (Bld) [#/Vol] 0 10*3/uL Normal 0-5 [facility] Comment on above: Performed By: #### L 100.0100, L501.5200, L501.2300, L500.2500 ####[facility] [address] [place], [address] Platelet mean volume (Bld) [Entitic vol] 9.6 fL Normal 6.2-12.0 [facility] Comment on above: Performed By: #### L 100.0100, L501.5200, L501.2300, L500.2500 ####[facility] [address] [place], [address] Platelets (Bld) [#/Vol] 127 10*3/uL Low 150-450 [facility] Comment on above: Performed By: #### L 100.0100, L501.5200, L501.2300, L500.2500 ####[facility] [address] [place], [address] RBC (Bld) [#/Vol] 2.84 10*6/uL Low 4.6-6.2 [facility] Comment on above: Performed By: #### L 100.0100, L501.5200, L501.2300, L500.2500 ####[facility] [address] [place], [address] RDW SD 49.6 fl High 35.1-43.9 [facility] Comment on above: Performed By: #### L 100.0100, L501.5200, L501.2300, L500.2500 ####[facility] [address] [place], [address] WBC (Bld) [#/Vol] 4.9 10*3/uL Normal 4.4-11.0 [facility] Comment on above: Performed By: #### L 100.0100, L501.5200, L501.2300, L500.2500 ####[facility] [address] [place], [address] Magnesiumon 05-03-2025 Magnesium [Mass/Vol] 2.2 mg/dL Normal 1.5-2.2 [facility] Comment on above: Performed By: #### L 100.0100, L501.5200, L501.2300, L500.2500 ####[facility] [address] [place], [address] Phosphoruson 05-03-2025 Phosphate [Mass/Vol] 4.3 mg/dL Normal 2.7-4.5 [facility] Comment on above: Performed By: #### L 100.0100, L501.5200, L501.2300, L500.2500 ####[facility] [address] [place], [address] Basic Metabolic Profile (BMP )on 05-02-2025 BUN/CRE 28.2 RATIO High 10-20 [facility] Comment on above: Performed By: #### L 500.2500 ####[facility] [address] [place], [address] Calcium [Mass/Vol] 8.4 mg/dL Normal 7.6-11.0 [facility] Comment on above: Performed By: #### L 500.2500 ####[facility] [address] [place], [address] Chloride [Moles/Vol] 104 mmol/L Normal 98-108 [facility] Comment on above: Performed By: #### L 500.2500 ####[facility] [address] [place], [address] CO2 [Moles/Vol] 24.5 mmol/L Normal 21.0-32.0 [facility] Comment on above: Performed By: #### L 500.2500 ####[facility] [address] [place], [address] Creatinine [Mass/Vol] 3.54 mg/dL High 0.70-1.20 [facility] Comment on above: Performed By: #### L 500.2500 ####[facility] [address] [place], [address] ECRCL 16.33 ml/min Low 50-250 [facility] Comment on above: Performed By: #### L 500.2500 ####[facility] [address] [place], [address] GAP 14 Normal 5-15 [facility] Comment on above: Performed By: #### L 500.2500 ####[facility] [address] [place], [address] GFR/1.73 sq M.predicted among non-blacks MDRD (S/P/Bld) [Vol rate/Area] 16 mL/min/{1.73_m2} Low >60 [facility] Comment on above: Result Comment: mL/m in/1.73m2 CKD-EPI Creatinine Equation (2020) Performed By: #### L 500.2500 ####[facility] [address] [place], [address] Glucose [Mass/Vol] 102 mg/dL High 70-99 [facility] Comment on above: Performed By: #### L 500.2500 ####[facility] [address] [place], [address] Potassium [Moles/Vol] 3.1 mmol/L Low 3.3-5.1 [facility] Comment on above: Performed By: #### L 500.2500 ####[facility] [address] [place], [address] Sodium [Moles/Vol] 142 mmol/L Normal 133-145 [facility] Comment on above: Performed By: #### L 500.2500 ####[facility] [address] [place], [address] Urea nitrogen [Mass/Vol] 100 mg/dL High -19 [facility] Comment on above: Performed By: #### L 500.2500 ####[facility] [address] [place], [address] Basic Metabolic Profile (BMP )on 04-30-2025 BUN/CRE 26.6 RATIO High 10-20 [facility] Comment on above: Performed By: #### L 100.0100, L500.2500 ####[facility] [address] [place], [address] Calcium [Mass/Vol] 9.0 mg/dL Normal 7.6-11.0 [facility] Comment on above: Performed By: #### L 100.0100, L500.2500 ####[facility] [address] [place], [address] Chloride [Moles/Vol] 104 mmol/L Normal 98-108 [facility] Comment on above: Performed By: #### L 100.0100, L500.2500 ####[facility] [address] [place], [address] CO2 [Moles/Vol] 21.3 mmol/L Normal 21.0-32.0 [facility] Comment on above: Performed By: #### L 100.0100, L500.2500 ####[facility] [address] [place], [address] Creatinine [Mass/Vol] 3.68 mg/dL High 0.70-1.20 [facility] Comment on above: Performed By: #### L 100.0100, L500.2500 ####[facility] [address] [place], [address] ECRCL 15.70 ml/min Low 50-250 [facility] Comment on above: Performed By: #### L 100.0100, L500.2500 ####[facility] [address] [place], [address] GAP 16 High 5-15 [facility] Comment on above: Performed By: #### L 100.0100, L500.2500 ####[facility] [address] [place], [address] GFR/1.73 sq M.predicted among non-blacks MDRD (S/P/Bld) [Vol rate/Area] 16 mL/min/{1.73_m2} Low >60 [facility] Comment on above: Result Comment: mL/m in/1.73m2 CKD-EPI Creatinine Equation (2020) Performed By: #### L 100.0100, L500.2500 ####[facility] [address] [place], [address] Glucose [Mass/Vol] 102 mg/dL High 70-99 [facility] Comment on above: Performed By: #### L 100.0100, L500.2500 ####[facility] [address] [place], [address] Potassium [Moles/Vol] 3.6 mmol/L Normal 3.3-5.1 [facility] Comment on above: Performed By: #### L 100.0100, L500.2500 ####[facility] [address] [place], [address] Sodium [Moles/Vol] 141 mmol/L Normal 133-145 [facility] Comment on above: Performed By: #### L 100.0100, L500.2500 ####[facility] [address] [place], [address] Urea nitrogen [Mass/Vol] 98 mg/dL High 4-19 [facility] Comment on above: Performed By: #### L 100.0100, L500.2500 ####[facility] [address] [place], [address] CBC W/Diff, Automatedon 11-0 -2024 Absolute Lymph 0.35 X10 3/uL Low 0.83-4.51 [facility] Comment on above: Performed By: #### L 100.0100, L500.2500 ####[facility] [address] [place], [address] Absolute Neut 5.0 X10 3/uL Normal 2.0-7.7 [facility] Comment on above: Performed By: #### L 100.0100, L500.2500 ####[facility] [address] [place], [address] Basophils/100 WBC (Bld) 0.2 % Normal 0-1 [facility] Comment on above: Performed By: #### L 100.0100, L500.2500 ####[facility] [address] [place], [address] Eosinophils/100 WBC (Bld) 0.3 % Normal 0-5 [facility] Comment on above: Performed By: #### L 100.0100, L500.2500 ####[facility] [address] [place], [address] Erythrocyte distribution width (RBC) [Ratio] 13.9 % Normal 11.6-14.6 [facility] Comment on above: Performed By: #### L 100.0100, L500.2500 ####[facility] [address] [place], [address] Hematocrit (Bld) [Volume fraction] 27.8 % Low 40-54 [facility] Comment on above: Performed By: #### L 100.0100, L500.2500 ####[facility] [address] [place], [address] Hemoglobin (Bld) [Mass/Vol] 9.3 g/dL Low 13.0-16.5 [facility] Comment on above: Performed By: #### L 100.0100, L500.2500 ####[facility] [address] [place], [address] IG% 0.200 Normal 0.0-0.9 [facility] Comment on above: Result Comment: IG% - Immature Granulocytes (promyelocytes, myelocytes andmetamyelocytes) > 1% indicates that a LEFT SHIFT is Present. Performed By: #### L 100.0100, L500.2500 ####[facility] [address] [place], [address] Lymphocytes/100 WBC (Bld) 5.9 % Low 19-41 [facility] Comment on above: Performed By: #### L 100.0100, L500.2500 ####[facility] [address] [place], [address] MCH (RBC) [Entitic mass] 34.1 pg High 27.0-32.0 [facility] Comment on above: Performed By: #### L 100.0100, L500.2500 ####[facility] [address] [place], [address] MCHC (RBC) [Mass/Vol] 33.5 g/dL Normal 32-36 [facility] Comment on above: Performed By: #### L 100.0100, L500.2500 ####[facility] [address] [place], [address] MCV (RBC) [Entitic vol] 101.8 fL High 80-94 [facility] Comment on above: Performed By: #### L 100.0100, L500.2500 ####[facility] [address] [place], [address] Monocytes/100 WBC (Bld) 8.3 % Normal 0-10 [facility] Comment on above: Performed By: #### L 100.0100, L500.2500 ####[facility] [address] [place], [address] Neutrophils/100 WBC (Bld) 85.1 % High 47-70 [facility] Comment on above: Performed By: #### L 100.0100, L500.2500 ####[facility] [address] [place], [address] Nucleated RBC (Bld) [#/Vol] 0 10*3/uL Normal 0-5 [facility] Comment on above: Performed By: #### L 100.0100, L500.2500 ####[facility] [address] [place], [address] Platelet mean volume (Bld) [Entitic vol] 10.2 fL Normal 6.2-12.0 [facility] Comment on above: Performed By: #### L 100.0100, L500.2500 ####[facility] [address] [place], [address] Platelets (Bld) [#/Vol] 118 10*3/uL Low 150-450 [facility] Comment on above: Performed By: #### L 100.0100, L500.2500 ####[facility] [address] [place], [address] RBC (Bld) [#/Vol] 2.73 10*6/uL Low 4.6-6.2 [facility] Comment on above: Performed By: #### L 100.0100, L500.2500 ####[facility] [address] [place], [address] RDW SD 52.4 fl High 35.1-43.9 [facility] Comment on above: Performed By: #### L 100.0100, L500.2500 ####[facility] [address] [place], [address] WBC (Bld) [#/Vol] 5.9 10*3/uL Normal 4.4-11.0 [facility] Comment on above: Performed By: #### L 100.0100, L500.2500 ####[facility] [address] [place], [address] Basic Metabolic Profile (BMP )on 04-29-2025 BUN/CRE 24.4 RATIO High 10-20 [facility] Comment on above: Performed By: #### L 100.0100, L500.2500 ####[facility] [address] [place], [address] Calcium [Mass/Vol] 8.5 mg/dL Normal 7.6-11.0 [facility] Comment on above: Performed By: #### L 100.0100, L500.2500 ####[facility] [address] [place], [address] Chloride [Moles/Vol] 107 mmol/L Normal 98-108 [facility] Comment on above: Performed By: #### L 100.0100, L500.2500 ####[facility] [address] [place], [address] CO2 [Moles/Vol] 20.1 mmol/L Low 21.0-32.0 [facility] Comment on above: Performed By: #### L 100.0100, L500.2500 ####[facility] [address] [place], [address] Creatinine [Mass/Vol] 3.64 mg/dL High 0.70-1.20 [facility] Comment on above: Performed By: #### L 100.0100, L500.2500 ####[facility] [address] [place], [address] ECRCL 15.88 ml/min Low 50-250 [facility] Comment on above: Performed By: #### L 100.0100, L500.2500 ####[facility] [address] [place], [address] GAP 15 Normal 5-15 [facility] Comment on above: Performed By: #### L 100.0100, L500.2500 ####[facility] [address] [place], [address] GFR/1.73 sq M.predicted among non-blacks MDRD (S/P/Bld) [Vol rate/Area] 16 mL/min/{1.73_m2} Low >60 [facility] Comment on above: Result Comment: mL/m in/1.73m2 CKD-EPI Creatinine Equation (2020) Performed By: #### L 100.0100, L500.2500 ####[facility] [address] [place], [address] Glucose [Mass/Vol] 103 mg/dL High 70-99 [facility] Comment on above: Performed By: #### L 100.0100, L500.2500 ####[facility] [address] [place], [address] Potassium [Moles/Vol] 4.4 mmol/L Normal 3.3-5.1 [facility] Comment on above: Performed By: #### L 100.0100, L500.2500 ####[facility] [address] [place], [address] Sodium [Moles/Vol] 141 mmol/L Normal 133-145 [facility] Comment on above: Performed By: #### L 100.0100, L500.2500 ####[facility] [address] [place], [address] Urea nitrogen [Mass/Vol] 89 mg/dL High 4-19 [facility] Comment on above: Performed By: #### L 100.0100, L500.2500 ####[facility] [address] [place], [address] CBC W/Diff, Automatedon 10-3 -2024 Absolute Lymph 0.42 X10 3/uL Low 0.83-4.51 [facility] Comment on above: Performed By: #### L 100.0100, L500.2500 ####[facility] [address] [place], [address] Absolute Neut 7.4 X10 3/uL Normal 2.0-7.7 [facility] Comment on above: Performed By: #### L 100.0100, L500.2500 ####[facility] [address] [place], [address] Basophils/100 WBC (Bld) 0.1 % Normal 0-1 [facility] Comment on above: Performed By: #### L 100.0100, L500.2500 ####[facility] [address] [place], [address] Eosinophils/100 WBC (Bld) 0.1 % Normal 0-5 [facility] Comment on above: Performed By: #### L 100.0100, L500.2500 ####[facility] [address] [place], [address] Erythrocyte distribution width (RBC) [Ratio] 14.2 % Normal 11.6-14.6 [facility] Comment on above: Performed By: #### L 100.0100, L500.2500 ####[facility] [address] [place], [address] Hematocrit (Bld) [Volume fraction] 28.5 % Low 40-54 [facility] Comment on above: Performed By: #### L 100.0100, L500.2500 ####[facility] [address] [place], [address] Hemoglobin (Bld) [Mass/Vol] 9.3 g/dL Low 13.0-16.5 [facility] Comment on above: Performed By: #### L 100.0100, L500.2500 ####[facility] [address] [place], [address] IG% 0.500 Normal 0.0-0.9 [facility] Comment on above: Result Comment: IG% - Immature Granulocytes (promyelocytes, myelocytes andmetamyelocytes) > 1% indicates that a LEFT SHIFT is Present. Performed By: #### L 100.0100, L500.2500 ####[facility] [address] [place], [address] Lymphocytes/100 WBC (Bld) 4.9 % Low 19-41 [facility] Comment on above: Performed By: #### L 100.0100, L500.2500 ####[facility] [address] [place], [address] MCH (RBC) [Entitic mass] 33.6 pg High 27.0-32.0 [facility] Comment on above: Performed By: #### L 100.0100, L500.2500 ####[facility] [address] [place], [address] MCHC (RBC) [Mass/Vol] 32.6 g/dL Normal 32-36 [facility] Comment on above: Performed By: #### L 100.0100, L500.2500 ####[facility] [address] [place], [address] MCV (RBC) [Entitic vol] 102.9 fL High 80-94 [facility] Comment on above: Performed By: #### L 100.0100, L500.2500 ####[facility] [address] [place], [address] Monocytes/100 WBC (Bld) 7.9 % Normal 0-10 [facility] Comment on above: Performed By: #### L 100.0100, L500.2500 ####[facility] [address] [place], [address] Neutrophils/100 WBC (Bld) 86.5 % High 47-70 [facility] Comment on above: Performed By: #### L 100.0100, L500.2500 ####[facility] [address] [place], [address] Nucleated RBC (Bld) [#/Vol] 0 10*3/uL Normal 0-5 [facility] Comment on above: Performed By: #### L 100.0100, L500.2500 ####[facility] [address] [place], [address] Platelet mean volume (Bld) [Entitic vol] 10.2 fL Normal 6.2-12.0 [facility] Comment on above: Performed By: #### L 100.0100, L500.2500 ####[facility] [address] [place], [address] Platelets (Bld) [#/Vol] 137 10*3/uL Low 150-450 [facility] Comment on above: Performed By: #### L 100.0100, L500.2500 ####[facility] [address] [place], [address] RBC (Bld) [#/Vol] 2.77 10*6/uL Low 4.6-6.2 [facility] Comment on above: Performed By: #### L 100.0100, L500.2500 ####[facility] [address] [place], [address] RDW SD 53.7 fl High 35.1-43.9 [facility] Comment on above: Performed By: #### L 100.0100, L500.2500 ####[facility] [address] [place], [address] WBC (Bld) [#/Vol] 8.5 10*3/uL Normal 4.4-11.0 [facility] Comment on above: Performed By: #### L 100.0100, L500.2500 ####[facility] [address] [place], [address] Consultation - Surgicalon Consultation - Surgical Normal [facility] 12 Lead EKGon 04-28-2025 12 Lead EKG Normal [facility] Basic Metabolic Profile (BMP )on 04-28-2025 BUN/CRE 23.8 RATIO High 10-20 [facility] Comment on above: Performed By: #### L 500.2500, L100.0100, L501.2300, L501.5200 ####[facility] [address] [place], [address] Calcium [Mass/Vol] 8.8 mg/dL Normal 7.6-11.0 [facility] Comment on above: Performed By: #### L 500.2500, L100.0100, L501.2300, L501.5200 ####[facility] [address] [place], [address] Chloride [Moles/Vol] 107 mmol/L Normal 98-108 [facility] Comment on above: Performed By: #### L 500.2500, L100.0100, L501.2300, L501.5200 ####[facility] [address] [place], [address] CO2 [Moles/Vol] 20.5 mmol/L Low 21.0-32.0 [facility] Comment on above: Performed By: #### L 500.2500, L100.0100, L501.2300, L501.5200 ####[facility] [address] [place], [address] Creatinine [Mass/Vol] 3.44 mg/dL High 0.70-1.20 [facility] Comment on above: Performed By: #### L 500.2500, L100.0100, L501.2300, L501.5200 ####[facility] [address] [place], [address] ECRCL 16.80 ml/min Low 50-250 [facility] Comment on above: Performed By: #### L 500.2500, L100.0100, L501.2300, L501.5200 ####[facility] [address] [place], [address] GAP 13 Normal 5-15 [facility] Comment on above: Performed By: #### L 500.2500, L100.0100, L501.2300, L501.5200 ####[facility] [address] [place], [address] GFR/1.73 sq M.predicted among non-blacks MDRD (S/P/Bld) [Vol rate/Area] 17 mL/min/{1.73_m2} Low >60 [facility] Comment on above: Result Comment: mL/m in/1.73m2 CKD-EPI Creatinine Equation (2020) Performed By: #### L 500.2500, L100.0100, L501.2300, L501.5200 ####[facility] [address] [place], [address] Glucose [Mass/Vol] 134 mg/dL High 70-99 [facility] Comment on above: Performed By: #### L 500.2500, L100.0100, L501.2300, L501.5200 ####[facility] [address] [place], [address] Potassium [Moles/Vol] 4.8 mmol/L Normal 3.3-5.1 [facility] Comment on above: Performed By: #### L 500.2500, L100.0100, L501.2300, L501.5200 ####[facility] [address] [place], [address] Sodium [Moles/Vol] 141 mmol/L Normal 133-145 [facility] Comment on above: Performed By: #### L 500.2500, L100.0100, L501.2300, L501.5200 ####[facility] [address] [place], [address] Urea nitrogen [Mass/Vol] 82 mg/dL High 4-19 [facility] Comment on above: Performed By: #### L 500.2500, L100.0100, L501.2300, L501.5200 ####[facility] [address] [place], [address] CBC W/Diff, Automatedon 10-3 0-2025 Absolute Lymph 0.38 X10 3/uL Low 0.83-4.51 [facility] Comment on above: Performed By: #### L 500.2500, L100.0100, L501.2300, L501.5200 ####[facility] [address] [place], [address] Absolute Neut 9.9 X10 3/uL High 2.0-7.7 [facility] Comment on above: Performed By: #### L 500.2500, L100.0100, L501.2300, L501.5200 ####[facility] [address] [place], [address] Basophils/100 WBC (Bld) 0.1 % Normal 0-1 [facility] Comment on above: Performed By: #### L 500.2500, L100.0100, L501.2300, L501.5200 ####[facility] [address] [place], [address] Eosinophils/100 WBC (Bld) 0.0 % Normal 0-5 [facility] Comment on above: Performed By: #### L 500.2500, L100.0100, L501.2300, L501.5200 ####[facility] [address] [place], [address] Erythrocyte distribution width (RBC) [Ratio] 14.2 % Normal 11.6-14.6 [facility] Comment on above: Performed By: #### L 500.2500, L100.0100, L501.2300, L501.5200 ####[facility] [address] [place], [address] Hematocrit (Bld) [Volume fraction] 28.6 % Low 40-54 [facility] Comment on above: Performed By: #### L 500.2500, L100.0100, L501.2300, L501.5200 ####[facility] [address] [place], [address] Hemoglobin (Bld) [Mass/Vol] 9.3 g/dL Low 13.0-16.5 [facility] Comment on above: Performed By: #### L 500.2500, L100.0100, L501.2300, L501.5200 ####[facility] [address] [place], [address] IG% 0.600 Normal 0.0-0.9 [facility] Comment on above: Result Comment: IG% - Immature Granulocytes (promyelocytes, myelocytes andmetamyelocytes) > 1% indicates that a LEFT SHIFT is Present. Performed By: #### L 500.2500, L100.0100, L501.2300, L501.5200 ####[facility] [address] [place], [address] Lymphocytes/100 WBC (Bld) 3.4 % Low 19-41 [facility] Comment on above: Performed By: #### L 500.2500, L100.0100, L501.2300, L501.5200 ####[facility] [address] [place], [address] MCH (RBC) [Entitic mass] 33.5 pg High 27.0-32.0 [facility] Comment on above: Performed By: #### L 500.2500, L100.0100, L501.2300, L501.5200 ####[facility] [address] [place], [address] MCHC (RBC) [Mass/Vol] 32.5 g/dL Normal 32-36 [facility] Comment on above: Performed By: #### L 500.2500, L100.0100, L501.2300, L501.5200 ####[facility] [address] [place], [address] MCV (RBC) [Entitic vol] 102.9 fL High 80-94 [facility] Comment on above: Performed By: #### L 500.2500, L100.0100, L501.2300, L501.5200 ####[facility] [address] [place], [address] Monocytes/100 WBC (Bld) 7.4 % Normal 0-10 [facility] Comment on above: Performed By: #### L 500.2500, L100.0100, L501.2300, L501.5200 ####[facility] [address] [place], [address] Neutrophils/100 WBC (Bld) 88.5 % High 47-70 [facility] Comment on above: Performed By: #### L 500.2500, L100.0100, L501.2300, L501.5200 ####[facility] [address] [place], [address] Nucleated RBC (Bld) [#/Vol] 0 10*3/uL Normal 0-5 [facility] Comment on above: Performed By: #### L 500.2500, L100.0100, L501.2300, L501.5200 ####[facility] [address] [place], [address] Platelet mean volume (Bld) [Entitic vol] 10.0 fL Normal 6.2-12.0 [facility] Comment on above: Performed By: #### L 500.2500, L100.0100, L501.2300, L501.5200 ####[facility] [address] [place], [address] Platelets (Bld) [#/Vol] 133 10*3/uL Low 150-450 [facility] Comment on above: Performed By: #### L 500.2500, L100.0100, L501.2300, L501.5200 ####[facility] [address] [place], [address] RBC (Bld) [#/Vol] 2.78 10*6/uL Low 4.6-6.2 [facility] Comment on above: Performed By: #### L 500.2500, L100.0100, L501.2300, L501.5200 ####[facility] [address] [place], [address] RDW SD 53.5 fl High 35.1-43.9 [facility] Comment on above: Performed By: #### L 500.2500, L100.0100, L501.2300, L501.5200 ####[facility] [address] [place], [address] WBC (Bld) [#/Vol] 11.1 10*3/uL High 4.4-11.0 [facility] Comment on above: Performed By: #### L 500.2500, L100.0100, L501.2300, L501.5200 ####[facility] [address] [place], [address] Magnesiumon 04-28-2025 Magnesium [Mass/Vol] 2.6 mg/dL High 1.5-2.2 [facility] Comment on above: Performed By: #### L 500.2500, L100.0100, L501.2300, L501.5200 ####[facility] [address] [place], [address] Phosphoruson 04-28-2025 Phosphate [Mass/Vol] 4.9 mg/dL High 2.7-4.5 [facility] Comment on above: Performed By: #### L 500.2500, L100.0100, L501.2300, L501.5200 ####[facility] [address] [place], [address] Basic Metabolic Profile (BMP )on 04-27-2025 BUN/CRE 22.4 RATIO High 10-20 [facility] Comment on above: Performed By: #### L 500.4100, L100.0500, L500.2500 ####[facility] [address] [place], [address] Calcium [Mass/Vol] 9.2 mg/dL Normal 7.6-11.0 [facility] Comment on above: Performed By: #### L 500.4100, L100.0500, L500.2500 ####[facility] [address] [place], [address] Chloride [Moles/Vol] 106 mmol/L Normal 98-108 [facility] Comment on above: Performed By: #### L 500.4100, L100.0500, L500.2500 ####[facility] [address] [place], [address] CO2 [Moles/Vol] 20.1 mmol/L Low 21.0-32.0 [facility] Comment on above: Performed By: #### L 500.4100, L100.0500, L500.2500 ####[facility] [address] [place], [address] Creatinine [Mass/Vol] 2.96 mg/dL High 0.70-1.20 [facility] Comment on above: Performed By: #### L 500.4100, L100.0500, L500.2500 ####[facility] [address] [place], [address] ECRCL 19.52 ml/min Low 50-250 [facility] Comment on above: Performed By: #### L 500.4100, L100.0500, L500.2500 ####[facility] [address] [place], [address] GAP 13 Normal 5-15 [facility] Comment on above: Performed By: #### L 500.4100, L100.0500, L500.2500 ####[facility] [address] [place], [address] GFR/1.73 sq M.predicted among non-blacks MDRD (S/P/Bld) [Vol rate/Area] 20 mL/min/{1.73_m2} Low >60 [facility] Comment on above: Result Comment: mL/m in/1.73m2 CKD-EPI Creatinine Equation (2020) Performed By: #### L 500.4100, L100.0500, L500.2500 ####[facility] [address] [place], [address] Glucose [Mass/Vol] 222 mg/dL High 70-99 [facility] Comment on above: Performed By: #### L 500.4100, L100.0500, L500.2500 ####[facility] [address] [place], [address] Potassium [Moles/Vol] 4.9 mmol/L Normal 3.3-5.1 [facility] Comment on above: Performed By: #### L 500.4100, L100.0500, L500.2500 ####[facility] [address] [place], [address] Sodium [Moles/Vol] 139 mmol/L Normal 133-145 [facility] Comment on above: Performed By: #### L 500.4100, L100.0500, L500.2500 ####[facility] [address] [place], [address] Urea nitrogen [Mass/Vol] 66 mg/dL High 4-19 [facility] Comment on above: Performed By: #### L 500.4100, L100.0500, L500.2500 ####[facility] [address] [place], [address] CBC-Complete Blood Cnt No Di ffon 04-27-2025 Erythrocyte distribution width (RBC) [Ratio] 13.6 % Normal 11.6-14.6 [facility] Comment on above: Performed By: #### L 500.4100, L100.0500, L500.2500 ####[facility] [address] [place], [address] Hematocrit (Bld) [Volume fraction] 28.6 % Low 40-54 [facility] Comment on above: Performed By: #### L 500.4100, L100.0500, L500.2500 ####[facility] [address] [place], [address] Hemoglobin (Bld) [Mass/Vol] 9.5 g/dL Low 13.0-16.5 [facility] Comment on above: Performed By: #### L 500.4100, L100.0500, L500.2500 ####[facility] [address] [place], [address] MCH (RBC) [Entitic mass] 33.9 pg High 27.0-32.0 [facility] Comment on above: Performed By: #### L 500.4100, L100.0500, L500.2500 ####[facility] [address] [place], [address] MCHC (RBC) [Mass/Vol] 33.2 g/dL Normal 32-36 [facility] Comment on above: Performed By: #### L 500.4100, L100.0500, L500.2500 ####[facility] [address] [place], [address] MCV (RBC) [Entitic vol] 102.1 fL High 80-94 [facility] Comment on above: Performed By: #### L 500.4100, L100.0500, L500.2500 ####[facility] [address] [place], [address] Platelet mean volume (Bld) [Entitic vol] 10.3 fL Normal 6.2-12.0 [facility] Comment on above: Performed By: #### L 500.4100, L100.0500, L500.2500 ####[facility] [address] [place], [address] Platelets (Bld) [#/Vol] 138 10*3/uL Low 150-450 [facility] Comment on above: Performed By: #### L 500.4100, L100.0500, L500.2500 ####[facility] [address] [place], [address] RBC (Bld) [#/Vol] 2.80 10*6/uL Low 4.6-6.2 [facility] Comment on above: Performed By: #### L 500.4100, L100.0500, L500.2500 ####[facility] [address] [place], [address] RDW SD 51.5 fl High 35.1-43.9 [facility] Comment on above: Performed By: #### L 500.4100, L100.0500, L500.2500 ####[facility] [address] [place], [address] WBC (Bld) [#/Vol] 4.5 10*3/uL Normal 4.4-11.0 [facility] Comment on above: Performed By: #### L 500.4100, L100.0500, L500.2500 ####[facility] [address] [place], [address] Consultation - Nephrologyon 04-27-2025 Consultation - Nephrology Normal [facility] Lipid Profileon 04-27-2025 CHOL:HDL 1.81 Normal [facility] Comment on above: Performed By: #### L 500.4100, L100.0500, L500.2500 ####[facility] [address] [place], [address] Cholesterol [Mass/Vol] 157 mg/dL Normal <=200 [facility] Comment on above: Result Comment: Chol esterol level, Desirable <200 mg/dLBorderline high cholesterol 200-239 mg/dLHigh cholesterol >=240 mg/dLRecommendations of the NCEP Adult Treatment Panel for thefollowing risk-cutoff thresholds for the [place] [facility]. Performed By: #### L 500.4100, L100.0500, L500.2500 ####[facility] [address] [place], [address] Cholesterol in HDL [Mass/Vol] 87 mg/dL Normal [facility] Comment on above: Result Comment: Anne Marie onal Cholesterol Education Program (NCEP) guidelines:<40 mg/dL: Low HDL-cholesterol (major risk factor for CHD)>= 60 mg/dL: High HDL-cholesterol (negative risk factor forCHD)HDL-cholesterol is affected by a number of factors, e.g.smoking, exercise, hormones, sex and age. Performed By: #### L 500.4100, L100.0500, L500.2500 ####[facility] [address] [place], [address] Cholesterol in LDL [Mass/Vol] 62 mg/dL Normal [facility] Comment on above: Result Comment: Bord fedrbm=839-542 mg/dL Higher Bxsi=085 mg/dL or greaterSampson Equation 2020 for LDL-C Performed By: #### L 500.4100, L100.0500, L500.2500 ####[facility] [address] [place], [address] Cholesterol in VLDL [Mass/Vol] 7 mg/dL Normal 5-40 [facility] Comment on above: Performed By: #### L 500.4100, L100.0500, L500.2500 ####[facility] [address] [place], [address] Triglyceride [Mass/Vol] 34 mg/dL Normal [facility] Comment on above: Result Comment: The drugs N-Acetylcysteine and Metamizole may falselydepress this assay.Normal range: <150 mg/dLBorderline High: 150-199 mg/dLHigh: 200-499 mg/dLVery High: >500 mg/dL Performed By: #### L 500.4100, L100.0500, L500.2500 ####[facility] [address] [place], [address] Protein+Creatinine Ratio,Uri neon 04-27-2025 PROT:CRE RATIO 695 mg/g CRE High 0-200 [facility] Comment on above: Performed By: #### L 400.0001, L501.0900 ####[facility] [address] [place], [address] Protein (U) [Mass/Vol] 61.9 mg/dL High 0.0-12.0 [facility] Comment on above: Performed By: #### L 400.0001, L501.0900 ####[facility] [address] [place], [address] UR CREAT 89.10 mg/dL Normal 39.00-259. 00 [facility] Comment on above: Performed By: #### L 400.0001, L501.0900 ####[facility] [address] [place], [address] Urinalysis, Completeon 04-27 EPI,SQUAMOUS 0-5 SEEN Normal 0-5 [facility] Comment on above: Order Comment: CLEAN CATCH Performed By: #### L 400.0001, L501.0900 ####[facility] [address] [place], [address] RBC 0-5 SEEN Normal 0-5 [facility] Comment on above: Order Comment: CLEAN CATCH Performed By: #### L 400.0001, L501.0900 ####[facility] [address] [place], [address] WBC 0-5 SEEN Normal 0-5 [facility] Comment on above: Order Comment: CLEAN CATCH Performed By: #### L 400.0001, L501.0900 ####[facility] [address] [place], [address] BACTERIA 0 SEEN Normal None Seen [facility] Comment on above: Order Comment: CLEAN CATCH Performed By: #### L 400.0001, L501.0900 ####[facility] [address] [place], [address] Mucus Ql (Urine sed) 0 SEEN Normal [facility] Comment on above: Order Comment: CLEAN CATCH Performed By: #### L 400.0001, L501.0900 ####[facility] [address] [place], [address] Basic Metabolic Profile (BMP )on 04-26-2025 BUN/CRE 21.1 RATIO High 10-20 [facility] Comment on above: Performed By: #### L 100.0100, L500.2500 ####[facility] [address] [place], [address] Calcium [Mass/Vol] 8.9 mg/dL Normal 7.6-11.0 [facility] Comment on above: Performed By: #### L 100.0100, L500.2500 ####[facility] [address] [place], [address] Chloride [Moles/Vol] 107 mmol/L Normal 98-108 [facility] Comment on above: Performed By: #### L 100.0100, L500.2500 ####[facility] [address] [place], [address] CO2 [Moles/Vol] 20.1 mmol/L Low 21.0-32.0 [facility] Comment on above: Performed By: #### L 100.0100, L500.2500 ####[facility] [address] [place], [address] Creatinine [Mass/Vol] 2.47 mg/dL High 0.70-1.20 [facility] Comment on above: Performed By: #### L 100.0100, L500.2500 ####[facility] [address] [place], [address] ECRCL 24.13 ml/min Low 50-250 [facility] Comment on above: Performed By: #### L 100.0100, L500.2500 ####[facility] [address] [place], [address] GAP 14 Normal 5-15 [facility] Comment on above: Performed By: #### L 100.0100, L500.2500 ####[facility] [address] [place], [address] GFR/1.73 sq M.predicted among non-blacks MDRD (S/P/Bld) [Vol rate/Area] 25 mL/min/{1.73_m2} Low >60 [facility] Comment on above: Result Comment: mL/m in/1.73m2 CKD-EPI Creatinine Equation (2020) Performed By: #### L 100.0100, L500.2500 ####[facility] [address] [place], [address] Glucose [Mass/Vol] 189 mg/dL High 70-99 [facility] Comment on above: Performed By: #### L 100.0100, L500.2500 ####[facility] [address] [place], [address] Potassium [Moles/Vol] 4.4 mmol/L Normal 3.3-5.1 [facility] Comment on above: Performed By: #### L 100.0100, L500.2500 ####[facility] [address] [place], [address] Sodium [Moles/Vol] 141 mmol/L Normal 133-145 [facility] Comment on above: Performed By: #### L 100.0100, L500.2500 ####[facility] [address] [place], [address] Urea nitrogen [Mass/Vol] 52 mg/dL High 4-19 [facility] Comment on above: Performed By: #### L 100.0100, L500.2500 ####[facility] [address] [place], [address] CBC W/Diff, Automatedon 10-2 Absolute Lymph 1.21 X10 3/uL Normal 0.83-4.51 [facility] Comment on above: Performed By: #### L 100.0100, L500.2500 ####[facility] [address] [place], [address] Absolute Neut 7.4 X10 3/uL Normal 2.0-7.7 [facility] Comment on above: Performed By: #### L 100.0100, L500.2500 ####[facility] [address] [place], [address] Basophils/100 WBC (Bld) 0.4 % Normal 0-1 [facility] Comment on above: Performed By: #### L 100.0100, L500.2500 ####[facility] [address] [place], [address] Eosinophils/100 WBC (Bld) 0.4 % Normal 0-5 [facility] Comment on above: Performed By: #### L 100.0100, L500.2500 ####[facility] [address] [place], [address] Erythrocyte distribution width (RBC) [Ratio] 13.7 % Normal 11.6-14.6 [facility] Comment on above: Performed By: #### L 100.0100, L500.2500 ####[facility] [address] [place], [address] Hematocrit (Bld) [Volume fraction] 33.1 % Low 40-54 [facility] Comment on above: Performed By: #### L 100.0100, L500.2500 ####[facility] [address] [place], [address] Hemoglobin (Bld) [Mass/Vol] 10.9 g/dL Low 13.0-16.5 [facility] Comment on above: Performed By: #### L 100.0100, L500.2500 ####[facility] [address] [place], [address] IG% 0.400 Normal 0.0-0.9 [facility] Comment on above: Result Comment: IG% - Immature Granulocytes (promyelocytes, myelocytes andmetamyelocytes) > 1% indicates that a LEFT SHIFT is Present. Performed By: #### L 100.0100, L500.2500 ####[facility] [address] [place], [address] Lymphocytes/100 WBC (Bld) 12.4 % Low 19-41 [facility] Comment on above: Performed By: #### L 100.0100, L500.2500 ####[facility] [address] [place], [address] MCH (RBC) [Entitic mass] 34.7 pg High 27.0-32.0 [facility] Comment on above: Performed By: #### L 100.0100, L500.2500 ####[facility] [address] [place], [address] MCHC (RBC) [Mass/Vol] 32.9 g/dL Normal 32-36 [facility] Comment on above: Performed By: #### L 100.0100, L500.2500 ####[facility] [address] [place], [address] MCV (RBC) [Entitic vol] 105.4 fL High 80-94 [facility] Comment on above: Performed By: #### L 100.0100, L500.2500 ####[facility] [address] [place], [address] Monocytes/100 WBC (Bld) 10.6 % High 0-10 [facility] Comment on above: Performed By: #### L 100.0100, L500.2500 ####[facility] [address] [place], [address] Neutrophils/100 WBC (Bld) 75.8 % High 47-70 [facility] Comment on above: Performed By: #### L 100.0100, L500.2500 ####[facility] [address] [place], [address] Nucleated RBC (Bld) [#/Vol] 0 10*3/uL Normal 0-5 [facility] Comment on above: Performed By: #### L 100.0100, L500.2500 ####[facility] [address] [place], [address] Platelet mean volume (Bld) [Entitic vol] 9.9 fL Normal 6.2-12.0 [facility] Comment on above: Performed By: #### L 100.0100, L500.2500 ####[facility] [address] [place], [address] Platelets (Bld) [#/Vol] 164 10*3/uL Normal 150-450 [facility] Comment on above: Performed By: #### L 100.0100, L500.2500 ####[facility] [address] [place], [address] RBC (Bld) [#/Vol] 3.14 10*6/uL Low 4.6-6.2 [facility] Comment on above: Performed By: #### L 100.0100, L500.2500 ####[facility] [address] [place], [address] RDW SD 53.0 fl High 35.1-43.9 [facility] Comment on above: Performed By: #### L 100.0100, L500.2500 ####[facility] [address] [place], [address] WBC (Bld) [#/Vol] 9.8 10*3/uL Normal 4.4-11.0 [facility] Comment on above: Performed By: #### L 100.0100, L500.2500 ####[facility] [address] [place], [address] Chest 1 View (Portable)on Chest 1 View (Portable) Normal [facility] Echo Complete W/ Contraston 04-26-2025 Echo Complete W/ Contrast Normal [facility] Emergency Department Summary on 04-26-2025 Emergency Department Summary Normal [facility] H AND P Exam - Hospitaliston 04-26-2025 H&P Exam - Hospitalist Normal [facility] Hemoglobin A1con 04-26-2025 HbA1c (Bld) [Mass fraction] 4.9 % Normal <=5.6 [facility] Comment on above: Order Comment: Comme nts: ok to add on Result Comment: Norm al < 5.7 % Prediabetic 5.7 - 6.4 % Diabetic >or= 6.5 % Please note range changes. Performed By: #### L 501.9985 ####[facility] [address] [place], [place], [address] L501.4021on 04-26-2025 Trop T High Sen 84 ng/L Invalid Interpretation Code <=22 [facility] Comment on above: Result Comment: Crit ical Result(s) Called at: 1310 04/26/2025 by: TIERRA??Results read back by same. Performed By: #### L 503.7501, L501.4021 ####[facility] [address] [place], [address] Pro- Brain NATRIURETIC PEPTI [place] 04-26-2025 Natriuretic peptide B (Bld) [Mass/Vol] 10901 pg/mL High <=1800 [facility] Comment on above: Result Comment: Hear t Failure Unlikely: < 300 pg/mLHeart Failure Likely< 50 Years: > 450 pg/mL50-75 Years: > 900 pg/mL>75 Years: > 1800 pg/mL Performed By: #### L 503.7505, L501.4021 ####[facility] [address] [place], [place], [address] Troponin T HS 2 HRon 025 Trop T High Sen 79 ng/L Invalid Interpretation Code <=22 [facility] Comment on above: Result Comment: Crit ical Result(s) Called at: 1527 04/26/2025 by: CHANDANA??Results read back by same. Performed By: #### L 499.0042 ####[facility] [address] [place], [address] Troponin T HS 4 HRon 025 Trop T High Sen Normal <=22 [facility] Comment on above: Result Comment: Canc elled via OM: Order cancelled - Patient discharged Performed By: #### L 499.0043 ####[facility] [address] [place], [place], [address] Absolute lymphocyte countOrd ered By: [facility] on 03-03-2025 Lymphocytes Auto (Unsp spec) [#/Vol] 0.85 10*3/uL 0.83-4.51 [facility] Anion gap in Serum or Plasma [facility] Anion gap [Moles/Vol] 14 mmol/L 5-15 [facility] Automated lymphocyte count a s percentage of total leukocytesOrdered By: [facility] on 03-03-2025 Lymphocytes/100 WBC Auto (Unsp spec) 20.1 % 19- [facility] BUN/creatinine ratioOrdered By: [facility] on 03-03-2025 Urea nitrogen/Creatinine [Mass ratio] 19.4 mg/mg 10- [facility] Basophil percentageOrdered B y: Mathieu [facility] Basophils/100 WBC (Bld) 0.5 % 0-1 [facility] Bilirubin, totalOrdered By: [facility] on 03-03-2025 Bilirubin [Mass/Vol] 0.49 mg/dL 0.00-1.30 [facility] CBC W/Diff, Automatedon Absolute Lymph 0.85 X10 3/uL Normal 0.83-4.51 [facility] Comment on above: Performed By: #### L 501.2300, L503.6550, L504.2610, L100.0100 ####[facility] [address] [place], [address] Absolute Neut 2.5 X10 3/uL Normal 2.0-7.7 [facility] Comment on above: Performed By: #### L 501.2300, L503.6550, L504.2610, L100.0100 ####[facility] [address] [place], [address] Basophils/100 WBC (Bld) 0.5 % Normal 0-1 [facility] Comment on above: Performed By: #### L 501.2300, L503.6550, L504.2610, L100.0100 ####[facility] [address] [place], [address] Eosinophils/100 WBC (Bld) 11.6 % High 0-5 [facility] Comment on above: Performed By: #### L 501.2300, L503.6550, L504.2610, L100.0100 ####[facility] [address] [place], [address] Erythrocyte distribution width (RBC) [Ratio] 12.6 % Normal 11.6-14.6 [facility] Comment on above: Performed By: #### L 501.2300, L503.6550, L504.2610, L100.0100 ####[facility] [address] [place], [address] Hematocrit (Bld) [Volume fraction] 33.2 % Low 40-54 [facility] Comment on above: Performed By: #### L 501.2300, L503.6550, L504.2610, L100.0100 ####[facility] [address] [place], [address] Hemoglobin (Bld) [Mass/Vol] 11.0 g/dL Low 13.0-16.5 [facility] Comment on above: Performed By: #### L 501.2300, L503.6550, L504.2610, L100.0100 ####[facility] [address] [place], [address] IG% 0.200 Normal 0.0-0.9 [facility] Comment on above: Result Comment: IG% - Immature Granulocytes (promyelocytes, myelocytes andmetamyelocytes) > 1% indicates that a LEFT SHIFT is Present. Performed By: #### L 501.2300, L503.6550, L504.2610, L100.0100 ####[facility] [address] [place], [address] Lymphocytes/100 WBC (Bld) 20.1 % Normal 19-41 [facility] Comment on above: Performed By: #### L 501.2300, L503.6550, L504.2610, L100.0100 ####[facility] [address] [place], [address] MCH (RBC) [Entitic mass] 34.6 pg High 27.0-32.0 [facility] Comment on above: Performed By: #### L 501.2300, L503.6550, L504.2610, L100.0100 ####[facility] [address] [place], [address] MCHC (RBC) [Mass/Vol] 33.1 g/dL Normal 32-36 [facility] Comment on above: Performed By: #### L 501.2300, L503.6550, L504.2610, L100.0100 ####[facility] [address] [place], [address] MCV (RBC) [Entitic vol] 104.4 fL High 80-94 [facility] Comment on above: Performed By: #### L 501.2300, L503.6550, L504.2610, L100.0100 ####[facility] [address] [place], [address] Monocytes/100 WBC (Bld) 9.5 % Normal 0-10 [facility] Comment on above: Performed By: #### L 501.2300, L503.6550, L504.2610, L100.0100 ####[facility] [address] [place], [address] Neutrophils/100 WBC (Bld) 58.1 % Normal 47-70 [facility] Comment on above: Performed By: #### L 501.2300, L503.6550, L504.2610, L100.0100 ####[facility] [address] [place], [address] Nucleated RBC (Bld) [#/Vol] 0 10*3/uL Normal 0-5 [facility] Comment on above: Performed By: #### L 501.2300, L503.6550, L504.2610, L100.0100 ####[facility] [address] [place], [address] Platelet mean volume (Bld) [Entitic vol] 9.1 fL Normal 6.2-12.0 [facility] Comment on above: Performed By: #### L 501.2300, L503.6550, L504.2610, L100.0100 ####[facility] [address] [place], [address] Platelets (Bld) [#/Vol] 141 10*3/uL Low 150-450 [facility] Comment on above: Performed By: #### L 501.2300, L503.6550, L504.2610, L100.0100 ####[facility] [address] [place], [address] RBC (Bld) [#/Vol] 3.18 10*6/uL Low 4.6-6.2 [facility] Comment on above: Performed By: #### L 501.2300, L503.6550, L504.2610, L100.0100 ####[facility] [address] [place], [address] RDW SD 48.6 fl High 35.1-43.9 [facility] Comment on above: Performed By: #### L 501.2300, L503.6550, L504.2610, L100.0100 ####[facility] [address] [place], [address] WBC (Bld) [#/Vol] 4.2 10*3/uL Low 4.4-11.0 [facility] Comment on above: Performed By: #### L 501.2300, L503.6550, L504.2610, L100.0100 ####[facility] [address] [place], [address] Carbon dioxide, total [Moles /volume] in Central venous bloodOrdered By: Mathieu Mcintyre on 03-03-2025 CO2 [Moles/Vol] 19.9 mmol/L Low 21.0-32.0 [facility] Chloride assayOrdered By: Grace Mcintyre on 03-03-2025 Chloride [Moles/Vol] 105 mmol/L 98-108 [facility] Comprehensive Metabolic Prof ilon 03-03-2025 Albumin [Mass/Vol] 4.6 g/dL Normal 3.4-4.8 [facility] Comment on above: Performed By: #### L 503.6030, L500.4050, L501.5200, L503.0106 ####[facility] [address] [place], [address] Albumin/Globulin [Mass ratio] 2.0 {ratio} Normal 0.9-2.4 [facility] Comment on above: Performed By: #### L 503.6030, L500.4050, L501.5200, L503.0106 ####[facility] [address] [place], [address] ALK PHOS 85 U/L Normal 40-129 [facility] Comment on above: Performed By: #### L 503.6030, L500.4050, L501.5200, L503.0106 ####[facility] [address] [place], [address] ALT [Catalytic activity/Vol] 9 U/L Normal <=46 [facility] Comment on above: Performed By: #### L 503.6030, L500.4050, L501.5200, L503.0106 ####[facility] [address] [place], [address] AST [Catalytic activity/Vol] 15 U/L Normal <=37 [facility] Comment on above: Performed By: #### L 503.6030, L500.4050, L501.5200, L503.0106 ####[facility] [address] [place], [address] Bilirubin [Mass/Vol] 0.49 mg/dL Normal 0.00-1.30 [facility] Comment on above: Performed By: #### L 503.6030, L500.4050, L501.5200, L503.0106 ####[facility] [address] [place], [address] BUN/CRE 19.4 RATIO Normal 10-20 [facility] Comment on above: Performed By: #### L 503.6030, L500.4050, L501.5200, L503.0106 ####[facility] [address] [place], [address] Calcium [Mass/Vol] 9.3 mg/dL Normal 7.6-11.0 [facility] Comment on above: Performed By: #### L 503.6030, L500.4050, L501.5200, L503.0106 ####[facility] [address] [place], [address] Chloride [Moles/Vol] 105 mmol/L Normal 98-108 [facility] Comment on above: Performed By: #### L 503.6030, L500.4050, L501.5200, L503.0106 ####[facility] [address] [place], [address] CO2 [Moles/Vol] 19.9 mmol/L Low 21.0-32.0 [facility] Comment on above: Performed By: #### L 503.6030, L500.4050, L501.5200, L503.0106 ####[facility] [address] [place], [address] Creatinine [Mass/Vol] 2.36 mg/dL High 0.70-1.20 [facility] Comment on above: Performed By: #### L 503.6030, L500.4050, L501.5200, L503.0106 ####[facility] [address] [place], [address] ECRCL 25.26 ml/min Low 50-250 [facility] Comment on above: Performed By: #### L 503.6030, L500.4050, L501.5200, L503.0106 ####[facility] [address] [place], [address] GAP 14 Normal 5-15 [facility] Comment on above: Performed By: #### L 503.6030, L500.4050, L501.5200, L503.0106 ####[facility] [address] [place], [address] GFR/1.73 sq M.predicted among non-blacks MDRD (S/P/Bld) [Vol rate/Area] 27 mL/min/{1.73_m2} Low >60 [facility] Comment on above: Result Comment: mL/m in/1.73m2 CKD-EPI Creatinine Equation (2020) Performed By: #### L 503.6030, L500.4050, L501.5200, L503.0106 ####[facility] [address] [place], [address] Globulin (S) [Mass/Vol] 2.3 g/dL Normal 2.2-4.2 [facility] Comment on above: Performed By: #### L 503.6030, L500.4050, L501.5200, L503.0106 ####[facility] [address] [place], [address] Glucose [Mass/Vol] 91 mg/dL Normal 70-99 [facility] Comment on above: Performed By: #### L 503.6030, L500.4050, L501.5200, L503.0106 ####[facility] [address] [place], [address] Potassium [Moles/Vol] 4.8 mmol/L Normal 3.3-5.1 [facility] Comment on above: Performed By: #### L 503.6030, L500.4050, L501.5200, L503.0106 ####[facility] [address] [place], [address] Sodium [Moles/Vol] 139 mmol/L Normal 133-145 [facility] Comment on above: Performed By: #### L 503.6030, L500.4050, L501.5200, L503.0106 ####[facility] [address] [place], [address] T PROT 6.8 g/dL Normal 5.9-8.4 [facility] Comment on above: Performed By: #### L 503.6030, L500.4050, L501.5200, L503.0106 ####[facility] [address] [place], [address] Urea nitrogen [Mass/Vol] 46 mg/dL High 4-19 [facility] Comment on above: Performed By: #### L 503.6030, L500.4050, L501.5200, L503.0106 ####[facility] [address] [place], [place], [id number] Eosinophil percentageOrdered By: [facility] Eosinophils/100 WBC (Bld) 11.6 % High 0-5 [facility] Erythrocyte distribution wid th ratioOrdered By: [facility] on 03-03-2025 Erythrocyte distribution width (RBC) [Ratio] 12.6 % 11.6-14.6 [facility] Erythrocyte distribution wid th standard deviationOrdered By: [facility] on 03-03-2025 Erythrocyte distribution width (RBC) [Ratio] 48.6 fl High 35.1-43.9 [facility] Ferritinon 03-03-2025 Ferritin [Mass/Vol] 769 ng/mL High 37-417 [facility] Comment on above: Performed By: #### L 501.2300, L503.6550, L504.2610, L100.0100 ####[facility] [address] [place], [place], [id number] Glomerular filtration rate ( GFR) estimation/1.73 sq m using serum, plasma, or whole bOrdered By: [facility] on 03-03-2025 GFR/1.73 sq M.predicted among non-blacks MDRD (S/P/Bld) [Vol rate/Area] 27 mL/min/{1.73_m2} Low >60 [facility] Hematocrit Auto (Bld) [Volum e fraction]Ordered By: Mathieu Mcintyre on 03-03-2025 Hematocrit (Bld) [Volume fraction] 33.2 % Low 40-54 [facility] Hemoglobin measurementOrdere d By: Mathieu Mcintyre on 03-03-2025 Hemoglobin (Bld) [Mass/Vol] 11.0 g/dL Low 13.0-16.5 [facility] Immature granulocytes/100 WB C Auto (Bld)Ordered By: Mathieu Mcintyre on 03-03-2025 Immature granulocytes/100 WBC (Bld) 0.200 % 0.0-0.9 [facility] Iron measurement (mass/mass) Ordered By: Mathieu Mcintyre on 03-03-2025 Iron (Unsp spec) [Mass/Mass] 73 ug/dL 65-175 [facility] Iron+Iron Binding Capacityon 03-03-2025 TIBC 230 ug/dL Low 250-450 [facility] Comment on above: Performed By: #### L 503.6030, L500.4050, L501.5200, L503.0106 ####[facility] [address] [place], [address] LDHon 03-03-2025 LDH 166 U/L Normal 87-241 [facility] Comment on above: Order Comment: 1 Performed By: #### L 501.2300, L503.6550, L504.2610, L100.0100 ####[facility] [address] [place], [address] MCV (mean corpuscular volume ) determinationOrdered By: Mathieu Mcintyre on 03-03-2025 MCV (RBC) [Entitic vol] 104.4 fL High 80-94 [facility] Magnesiumon 03-03-2025 Magnesium [Mass/Vol] 2.3 mg/dL High 1.5-2.2 [facility] Comment on above: Performed By: #### L 503.6030, L500.4050, L501.5200, L503.0106 ####[facility] [address] [place], [address] Magnesium measurement (mass/ volume)Ordered By: Mathieu Mcintyre on 03-03-2025 Magnesium (Unsp spec) [Mass/Vol] 2.3 mg/dL High 1.5-2.2 [facility] Mean corpuscular hemoglobin (MCH) determinationOrdered By: Mathieu Mcintyre on 03-03-2025 MCH (RBC) [Entitic mass] 34.6 pg High 27.0-32.0 [facility] Monocyte percentageOrdered B y: Mathieu Mcintyre on 03-03-2025 Monocytes/100 WBC (Bld) 9.5 % 0-10 [facility] Neutrophil percentageOrdered By: Mathieu Mcintyre on 03-03-2025 Neutrophils/100 WBC (Bld) 58.1 % 47-70 [facility] No Panel InformationOrdered By: Mathieu Mcintyre on 03-03-2025 15 U/L <38 [facility] 157 ug/dL Low 228-428 [facility] Oncology Visit Reporton Oncology Visit Report Normal [facility] Phosphoruson 03-03-2025 Phosphate [Mass/Vol] 3.8 mg/dL Normal 2.7-4.5 [facility] Comment on above: Performed By: #### L 501.2300, L503.6550, L504.2610, L100.0100 ####[facility] [address] [place], [place], [address] Platelet countOrdered By: Grace Mcintyre on 03-03-2025 Platelets (Bld) [#/Vol] 141 10*3/uL Low 150-450 [facility] Potassium measurement (mass/ volume)Ordered By: Mathieu Mcintyre on 03-03-2025 Potassium (Unsp spec) [Mass/Vol] 4.8 mmol/L 3.3-5.1 [facility] RBC Auto (Bld) [#/Vol]Ordere d By: Mathieu Mcintyre on 03-03-2025 RBC (Bld) [#/Vol] 3.18 10*6/uL Low 4.6-6.2 [facility] Serum creatinine measurement (mass/volume)Ordered By: Mathieu Mcintyre on 03-03-2025 Creatinine [Mass/Vol] 2.36 mg/dL High 0.70-1.20 [facility] Serum globulin measurementOr dered By: Mathieu Mcintyre on 03-03-2025 Globulin (S) [Mass/Vol] 2.3 g/dL 2.2-4.2 [facility] Serum glucose measurement (m ass/volume)Ordered By: Mathieu Mcintyre on 03-03-2025 Glucose [Mass/Vol] 91 mg/dL 70-99 [facility] Serum or plasma alanine sanchez otransferase (ALT) measurementOrdered By: Mathieu Mcintyre on 03-03-2025 ALT [Catalytic activity/Vol] 9 U/L <47 [facility] Serum or plasma albumin elvia urement (mass/volume)Ordered By: Mathieu Mcintyre on 03-03-2025 Albumin [Mass/Vol] 4.6 g/dL 3.4-4.8 [facility] Serum or plasma albumin/glob ulin mass ratioOrdered By: Mathieu Mcintyre on 03-03-2025 Albumin/Globulin [Mass ratio] 2.0 {ratio} 0.9-2.4 [facility] Serum or plasma alkaline bonnie sphatase measurementOrdered By: Mathieu Mcintyre on 03-03-2025 ALP [Catalytic activity/Vol] 85 U/L 40-129 [facility] Serum or plasma calcium elvia urement (mass/volume)Ordered By: Mathieu Mcintyre on 03-03-2025 Calcium [Mass/Vol] 9.3 mg/dL 7.6-11.0 [facility] Serum or plasma ferritin pedro luis surement (mass/volume)Ordered By: Mathieu Mcintyre on 03-03-2025 Ferritin [Mass/Vol] 769 ng/mL High 37-417 [facility] Serum or plasma iron saturat ion measurement (mass fraction)Ordered By: Mathieu Mcintyre on 03-03-2025 Iron saturation [Mass fraction] 31.7 % 9-55 [facility] Serum or plasma urea nitroge n measurement (mass/volume)Ordered By: Mathieu Mcintyre on 03-03-2025 Urea nitrogen [Mass/Vol] 46 mg/dL High 4-19 [facility] Sodium levelOrdered By: Rory Mcintyre on 03-03-2025 Sodium [Moles/Vol] 139 mmol/L 133-145 [facility] Total proteinOrdered By: Anderson Mcintyre on 03-03-2025 Protein [Mass/Vol] 6.8 g/dL 5.9-8.4 [facility] Vitamin B12on 03-03-2025 Cobalamin (Vitamin B12) [Mass/Vol] 267 pg/mL Normal 180-914 [facility] Comment on above: Performed By: #### L 503.6030, L500.4050, L501.5200, L503.0106 ####[facility] [address] [place], [place], [address] Vitamin B12 ser/plasOrdered By: Mathieu Mcintyre on 03-03-2025 Cobalamin (Vitamin B12) [Mass/Vol] 267 pg/mL 180-914 [facility] White blood cell (WBC) count Ordered By: Mathieu Mcintyre on 03-03-2025 WBC (Bld) [#/Vol] 4.2 10*3/uL Low 4.4-11.0 [facility] Operative Reporton Operative Report Normal [facility] Anion gap in Serum or Plasma Ordered By: Jakob Flower on 02-15-2025 Anion gap [Moles/Vol] 13 mmol/L - [facility] BUN/creatinine ratioOrdered By: Jakob Flower on 02-15-2025 Urea nitrogen/Creatinine [Mass ratio] 20.9 mg/mg High 10- [facility] Basic Metabolic Profile (BMP )on 02-15-2025 BUN/CRE 20.9 RATIO High - [facility] Comment on above: Order Comment: Order Date: 01/24/25Order Info: 666-1 - BMPOrder Info: - CHING YIN ORDERED BMP,MG,MICROALBDR MONIQUE ORDERED CBC,BMP Performed By: #### L 500.2500, L502.0500, L501.5200 ####[facility] [address] [place], [address] Calcium [Mass/Vol] 9.3 mg/dL Normal 7.6-11.0 [facility] Comment on above: Order Comment: Order Date: 01/24/25Order Info: 666-1 - BMPOrder Info: - CHING YIN ORDERED BMP,MG,MICROALBDR AMAYA ORDERED CBC,BMP Performed By: #### L 500.2500, L502.0500, L501.5200 ####[facility] [address] [place], [place], [address] Chloride [Moles/Vol] 107 mmol/L Normal 98-108 [facility] Comment on above: Order Comment: Order Date: 01/24/25Order Info: 666-06 - BMPOrder Info: - MGCHING SMITH ORDERED BMP,MG,MICROALBDR AMAYA ORDERED CBC,BMP Performed By: #### L 500.2500, L502.0500, L501.5200 ####[facility] [address] [place], [address] CO2 [Moles/Vol] 20.6 mmol/L Low 21.0-32.0 [facility] Comment on above: Order Comment: Order Date: 01/24/25Order Info: 666-06 - BMPOrder Info: - MGCHING SMITH ORDERED BMP,MG,MICROALBDR AMAYA ORDERED CBC,BMP Performed By: #### L 500.2500, L502.0500, L501.5200 ####[facility] [address] [place], [place], [address] Creatinine [Mass/Vol] 2.14 mg/dL High 0.70-1.20 [facility] Comment on above: Order Comment: Order Date: 01/24/25Order Info: 666-06 - BMPOrder Info: - MGDRFLOWER ORDERED BMP,MG,MICROALBDR AMAYA ORDERED CBC,BMP Performed By: #### L 500.2500, L502.0500, L501.5200 ####[facility] [address] [place], [address] GAP 13 Normal 5-15 [facility] Comment on above: Order Comment: Order Date: 01/24/25Order Info: 666-06 - BMPOrder Info: - MGCHING SMITH ORDERED BMP,MG,MICROALBDR AMAYA ORDERED CBC,BMP Performed By: #### L 500.2500, L502.0500, L501.5200 ####[facility] [address] [place], [address] GFR/1.73 sq M.predicted among non-blacks MDRD (S/P/Bld) [Vol rate/Area] 30 mL/min/{1.73_m2} Low >60 [facility] Comment on above: Order Comment: Order Date: 01/24/25Order Info: 666-06 - BMPOrder Info: - MGDRCHING ORDERED BMP,MG,MICROALBDR AMAYA ORDERED CBC,BMP Result Comment: mL/m in/1.73m2 CKD-EPI Creatinine Equation (2020) Performed By: #### L 500.2500, L502.0500, L501.5200 ####[facility] [address] [place], [address] Glucose [Mass/Vol] 130 mg/dL High 70-99 [facility] Comment on above: Order Comment: Order Date: 01/24/25Order Info: 666-06 - BMPOrder Info: - MGCHING SMITH ORDERED BMP,MG,MICROALBDR AMAYA ORDERED CBC,BMP Performed By: #### L 500.2500, L502.0500, L501.5200 ####[facility] [address] [place], [place], [address] Potassium [Moles/Vol] 4.8 mmol/L Normal 3.3-5.1 [facility] Comment on above: Order Comment: Order Date: 01/24/25Order Info: 666-06 - BMPOrder Info: - MGDRCHING ORDERED BMP,MG,MICROALBDR AMAYA ORDERED CBC,BMP Performed By: #### L 500.2500, L502.0500, L501.5200 ####[facility] [address] [place], [address] Sodium [Moles/Vol] 141 mmol/L Normal 133-145 [facility] Comment on above: Order Comment: Order Date: 01/24/25Order Info: 666-06 - BMPOrder Info: - MGDR,CHING ORDERED BMP,MG,MICROALBDR AMAYA ORDERED CBC,BMP Performed By: #### L 500.2500, L502.0500, L501.5200 ####[facility] [address] [place], [address] Urea nitrogen [Mass/Vol] 45 mg/dL High 4-19 [facility] Comment on above: Order Comment: Order Date: 01/24/25Order Info: 0667-1 - BMPOrder Info: [id number] - MGDRCHING ORDERED BMP,MG,MICROALBDCalvin AMAYA ORDERED CBC,BMP Performed By: #### L 500.2500, L502.0500, L501.5200 ####[facility] [address] [place], [address] CBC-Complete Blood Cnt No Di ffon 02-15-2025 Erythrocyte distribution width (RBC) [Ratio] 13.0 % Normal 11.6-14.6 [facility] Comment on above: Performed By: #### L 100.0500 ####[facility] [address] [place], [address] Hematocrit (Bld) [Volume fraction] 32.2 % Low 40-54 [facility] Comment on above: Performed By: #### L 100.0500 ####[facility] [address] [place], [address] Hemoglobin (Bld) [Mass/Vol] 10.6 g/dL Low 13.0-16.5 [facility] Comment on above: Performed By: #### L 100.0500 ####[facility] [address] [place], [address] MCH (RBC) [Entitic mass] 34.9 pg High 27.0-32.0 [facility] Comment on above: Performed By: #### L 100.0500 ####[facility] [address] [place], [address] MCHC (RBC) [Mass/Vol] 32.9 g/dL Normal 32-36 [facility] Comment on above: Performed By: #### L 100.0500 ####[facility] [address] [place], [address] MCV (RBC) [Entitic vol] 105.9 fL High 80-94 [facility] Comment on above: Performed By: #### L 100.0500 ####[facility] [address] [place], [address] Platelet mean volume (Bld) [Entitic vol] 10.1 fL Normal 6.2-12.0 [facility] Comment on above: Performed By: #### L 100.0500 ####[facility] [address] [place], [address] Platelets (Bld) [#/Vol] 140 10*3/uL Low 150-450 [facility] Comment on above: Performed By: #### L 100.0500 ####[facility] [address] [place], [address] RBC (Bld) [#/Vol] 3.04 10*6/uL Low 4.6-6.2 [facility] Comment on above: Performed By: #### L 100.0500 ####[facility] [address] [place], [address] RDW SD 50.5 fl High 35.1-43.9 [facility] Comment on above: Performed By: #### L 100.0500 ####[facility] [address] [place], [address] WBC (Bld) [#/Vol] 4.3 10*3/uL Low 4.4-11.0 [facility] Comment on above: Performed By: #### L 100.0500 ####[facility] [address] [place], [address] Carbon dioxide, total [Moles /volume] in Central venous bloodOrdered By: Jakob Flower on 02-15-2025 CO2 [Moles/Vol] 20.6 mmol/L Low 21.0-32.0 [facility] Chloride assayOrdered By: Jonah Flwoer on 02-15-2025 Chloride [Moles/Vol] 107 mmol/L 98-108 [facility] Erythrocyte distribution wid th ratioOrdered By: Jakob Flower on 02-15-2025 Erythrocyte distribution width (RBC) [Ratio] 13.0 % 11.6-14.6 [facility] Erythrocyte distribution wid th standard deviationOrdered By: Jakob Flower on 02-15-2025 Erythrocyte distribution width (RBC) [Ratio] 50.5 fl High 35.1-43.9 [facility] Glomerular filtration rate ( GFR) estimation/1.73 sq m using serum, plasma, or whole bOrdered By: Jakob Flower on 02-15-2025 GFR/1.73 sq M.predicted among non-blacks MDRD (S/P/Bld) [Vol rate/Area] 30 mL/min/{1.73_m2} Low >60 [facility] Comment on above: mL/min/1.73m2 CKD-EP I Creatinine Equation (2020) Hematocrit Auto (Bld) [Volum e fraction]Ordered By: Jakob Flower on 02-15-2025 Hematocrit (Bld) [Volume fraction] 32.2 % Low 40-54 [facility] Hemoglobin measurementOrdere d By: Jakob Flower on 02-15-2025 Hemoglobin (Bld) [Mass/Vol] 10.6 g/dL Low 13.0-16.5 [facility] MCV (mean corpuscular volume ) determinationOrdered By: Jakob Flower on 02-15-2025 MCV (RBC) [Entitic vol] 105.9 fL High 80-94 [facility] Magnesiumon 02-15-2025 Magnesium [Mass/Vol] 2.3 mg/dL High 1.5-2.2 [facility] Comment on above: Order Comment: Order Date: 01/24/25Order Info: [id number] - BMPOrder Info: [id number] - MGCHING SMITH ORDERED BMP,MG,MICROALBDR MONIQUE ORDERED CBC,BMP Performed By: #### L 500.2500, L502.0500, L501.5200 ####[facility] [address] [place], [address] Magnesium measurement (mass/ volume)Ordered By: Jakob Flower on 02-15-2025 Magnesium (Unsp spec) [Mass/Vol] 2.3 mg/dL High 1.5-2.2 [facility] Mean corpuscular hemoglobin (MCH) determinationOrdered By: Jakob Flower on 02-15-2025 MCH (RBC) [Entitic mass] 34.9 pg High 27.0-32.0 [facility] Mean corpuscular hemoglobin concentration (MCHC) determinationOrdered By: Jakob Flower on 02-15-2025 MCHC (RBC) [Mass/Vol] 32.9 g/dL 32-36 [facility] Mean platelet volume determi nationOrdered By: Jakob Flower on 02-15-2025 Platelet mean volume (Bld) [Entitic vol] 10.1 fL 6.2-12.0 [facility] Microalbumin,Random Urineon 02-15-2025 MICROALBUMIN,UR 642.0 mg/L Normal <20 mg/L [facility] Comment on above: Order Comment: Order Date: 01/24/25Order Info: [id number] - MIALB Performed By: #### L 500.2500, L502.0500, L501.5200 ####[facility] [address] [place], [address] Platelet countOrdered By: Jonah Flower on 02-15-2025 Platelets (Bld) [#/Vol] 140 10*3/uL Low 150-450 [facility] Potassium measurement (mass/ volume)Ordered By: Jakob Flower on 02-15-2025 Potassium (Unsp spec) [Mass/Vol] 4.8 mmol/L 3.3-5.1 [facility] RBC Auto (Bld) [#/Vol]Ordere d By: Jakob Flower on 02-15-2025 RBC (Bld) [#/Vol] 3.04 10*6/uL Low 4.6-6.2 [facility] Serum creatinine measurement (mass/volume)Ordered By: Jakob Flower on 02-15-2025 Creatinine [Mass/Vol] 2.14 mg/dL High 0.70-1.20 [facility] Serum glucose measurement (m ass/volume)Ordered By: Jakob Flower on 02-15-2025 Glucose [Mass/Vol] 130 mg/dL High 70-99 [facility] Serum or plasma calcium elvia urement (mass/volume)Ordered By: Jakob Flower on 02-15-2025 Calcium [Mass/Vol] 9.3 mg/dL 7.6-11.0 [facility] Serum or plasma urea nitroge n measurement (mass/volume)Ordered By: Jakob Flower on 02-15-2025 Urea nitrogen [Mass/Vol] 45 mg/dL High 4-19 [facility] Sodium levelOrdered By: Jakob Flower on 02-15-2025 Sodium [Moles/Vol] 141 mmol/L 133-145 [facility] Urine albumin measurement wi detection limit of 20 mg/L or less (mass/volume)Ordered By: Jakob Flower on 02-15-2025 Albumin DL <= 20 mg/L (U) [Mass/Vol] 642.0 mg/L <20 mg/L [facility] White blood cell (WBC) count Ordered By: Jakob Flower on 02-15-2025 WBC (Bld) [#/Vol] 4.3 10*3/uL Low 4.4-11.0 [facility] Discharge Instructionon 11-30 Discharge Instruction Normal [facility] MR/POSTOP.ANEon 12-27-2024 MR/POSTOP.ANE Normal [facility] MR/[id number] 12-27-2024 MR/POSTOPAN2 Normal [facility] Operative Reporton Operative Report Normal [facility] Microalb:Creat Ratio,Random URon 12-21-2024 MALB:CREAT 164.0 mg/g CRE Normal [facility] Comment on above: Order Comment: Order Date: 11/25/24Order Info: [id number] - MIALB Result Comment: AMENDED REPORT 12/21/24 1117 MALB:CREAT previously reported as: 1639.6 mg/g CRE Performed By: #### L 502.0250 ####[facility] [address] [place], [address] Electrocardiogram reportOrde red By: Raquel Luevano on 12-17-2024 EKG study [facility] Work Phone: 12 Lead EKGon 12-16-2024 12 Lead EKG Normal [facility] Activated partial thrombopla stin time (aPTT) in platelet poor plasma by coagulation aOrdered By: River Hamm on 12-16-2024 aPTT Coag (PPP) [Time] 27.8 s 24.1-36.2 [facility] Anion gap in Serum or Plasma Ordered By: Jakob Flower on 12-16-2024 Anion gap [Moles/Vol] 13 mmol/L - [facility] BUN/creatinine ratioOrdered By: Jakob Flower on 12-16-2024 Urea nitrogen/Creatinine [Mass ratio] 19.7 mg/mg - [facility] Basic Metabolic Profile (BMP )on 12-16-2024 BUN/CRE 19.7 RATIO Normal 04-18 [facility] Comment on above: Order Comment: Order Date: 12/09/24Order Info: 666-06 - BMP Performed By: #### L 500.2500 ####[facility] [address] [place], [address] Calcium [Mass/Vol] 9.0 mg/dL Normal 7.6-11.0 [facility] Comment on above: Order Comment: Order Date: 12/09/24Order Info: 666-06 - BMP Performed By: #### L 500.2500 ####[facility] [address] [place], [address] Chloride [Moles/Vol] 105 mmol/L Normal 98-108 [facility] Comment on above: Order Comment: Order Date: 12/09/24Order Info: 666-06 - BMP Performed By: #### L 500.2500 ####[facility] [address] [place], [address] CO2 [Moles/Vol] 21.6 mmol/L Normal 21.0-32.0 [facility] Comment on above: Order Comment: Order Date: 12/09/24Order Info: 666-06 - BMP Performed By: #### L 500.2500 ####[facility] [address] [place], [address] Creatinine [Mass/Vol] 2.13 mg/dL High 0.70-1.20 [facility] Comment on above: Order Comment: Order Date: 12/09/24Order Info: 666-06 - BMP Performed By: #### L 500.2500 ####[facility] [address] [place], [address] GAP 13 Normal 5-15 [facility] Comment on above: Order Comment: Order Date: 12/09/24Order Info: 666-06 - BMP Performed By: #### L 500.2500 ####[facility] [address] [place], [address] GFR/1.73 sq M.predicted among non-blacks MDRD (S/P/Bld) [Vol rate/Area] 30 mL/min/{1.73_m2} Low >60 [facility] Comment on above: Order Comment: Order Date: 12/09/24Order Info: 666-06 - BMP Result Comment: mL/m in/1.73m2 CKD-EPI Creatinine Equation (2020) Performed By: #### L 500.2500 ####[facility] [address] [place], [address] Glucose [Mass/Vol] 115 mg/dL High 70-99 [facility] Comment on above: Order Comment: Order Date: 12/09/24Order Info: 666-06 - BMP Performed By: #### L 500.2500 ####[facility] [address] [place], [place], [phone] Potassium [Moles/Vol] 4.6 mmol/L Normal 3.3-5.1 [facility] Comment on above: Order Comment: Order Date: 12/09/24Order Info: 666-06 - BMP Performed By: #### L 500.2500 ####[facility] [address] [place], [place], [address] Sodium [Moles/Vol] 139 mmol/L Normal 133-145 [facility] Comment on above: Order Comment: Order Date: 12/09/24Order Info: 666-06 - BMP Performed By: #### L 500.2500 ####[facility] [address] [place], [place], [address] Urea nitrogen [Mass/Vol] 42 mg/dL High -19 [facility] Comment on above: Order Comment: Order Date: 12/09/24Order Info: 666-06 - BMP Performed By: #### L 500.2500 ####[facility] [address] [place], [place], [address] Bilirubin directOrdered By: River Hamm on 12-16-2024 Bilirubin.direct [Mass/Vol] 0.23 mg/dL 0.00-0.30 [facility] Bilirubin, totalOrdered By: River Hamm on 12-16-2024 Bilirubin [Mass/Vol] 0.47 mg/dL 0.00-1.30 [facility] Carbon dioxide, total [Moles /volume] in Central venous bloodOrdered By: Jakob Flower on 12-16-2024 CO2 [Moles/Vol] 21.6 mmol/L 21.0-32.0 [facility] Chloride assayOrdered By: Jonah Flower on 12-16-2024 Chloride [Moles/Vol] 105 mmol/L 98-108 [facility] Glomerular filtration rate ( GFR) estimation/1.73 sq m using serum, plasma, or whole bOrdered By: Jakob Flower on 12-16-2024 GFR/1.73 sq M.predicted among non-blacks MDRD (S/P/Bld) [Vol rate/Area] 30 mL/min/{1.73_m2} Low >60 [facility] Comment on above: mL/min/1.73m2 CKD-EP I Creatinine Equation (2020) International normalized rat io (INR) calculationOrdered By: River Hamm on 12-16-2024 INR Coag (Bld) [Relative time] 1.0 {INR} [facility] Laboratory - Chemistry and C hemistry - challengeOrdered By: River Hamm on 12-16-2024 AST [Catalytic activity/Vol] 19 U/L <38 [facility] Liver Profileon 12-16-2024 Albumin [Mass/Vol] 4.4 g/dL Normal 3.4-4.8 [facility] Comment on above: Performed By: #### L 501.9520, L300.4310, L500.3400, L300.3900 ####[facility] [address] [place], [address] ALK PHOS 81 U/L Normal 40-129 [facility] Comment on above: Performed By: #### L 501.9520, L300.4310, L500.3400, L300.3900 ####[facility] [address] [place], [address] ALT [Catalytic activity/Vol] 10 U/L Normal <=46 [facility] Comment on above: Performed By: #### L 501.9520, L300.4310, L500.3400, L300.3900 ####[facility] [address] [place], [address] AST [Catalytic activity/Vol] 19 U/L Normal <=37 [facility] Comment on above: Performed By: #### L 501.9520, L300.4310, L500.3400, L300.3900 ####[facility] [address] [place], [address] Bilirubin [Mass/Vol] 0.47 mg/dL Normal 0.00-1.30 [facility] Comment on above: Performed By: #### L 501.9520, L300.4310, L500.3400, L300.3900 ####[facility] [address] [place], [address] Bilirubin.direct [Mass/Vol] 0.23 mg/dL Normal 0.00-0.30 [facility] Comment on above: Performed By: #### L 501.9520, L300.4310, L500.3400, L300.3900 ####[facility] [address] [place], [address] Globulin (S) [Mass/Vol] 2.0 g/dL Low 2.2-4.2 [facility] Comment on above: Performed By: #### L 501.9520, L300.4310, L500.3400, L300.3900 ####[facility] [address] [place], [address] T PROT 6.4 g/dL Normal 5.9-8.4 [facility] Comment on above: Performed By: #### L 501.9520, L300.4310, L500.3400, L300.3900 ####[facility] [address] [place], [address] No Panel InformationOrdered By: River Hamm on 12-16-2024 19 U/L <38 [facility] Partial Thromboplast Timeon 12-16-2024 aPTT Coag (Bld) [Time] 27.8 s Normal 24.1-36.2 [facility] Comment on above: Performed By: #### L 501.9520, L300.4310, L500.3400, L300.3900 ####[facility] [address] [place], [address] Potassium measurement (mass/ volume)Ordered By: Jakob Flower on 12-16-2024 Potassium (Unsp spec) [Mass/Vol] 4.6 mmol/L 3.3-5.1 [facility] Prothrombin Time w/INRon INR Coag (PPP) [Relative time] 1.0 {INR} Normal [facility] Comment on above: Performed By: #### L 501.9520, L300.4310, L500.3400, L300.3900 ####[facility] [address] [place], [address] PT Coag (PPP) [Time] 13.8 s Normal 11.7-14.9 [facility] Comment on above: Performed By: #### L 501.9520, L300.4310, L500.3400, L300.3900 ####[facility] [address] [place], [address] Prothrombin timeOrdered By: River Hamm on 12-16-2024 PT Coag (PPP) [Time] 13.8 s 11.7-14.9 [facility] Serum creatinine measurement (mass/volume)Ordered By: Jakob Flower on 12-16-2024 Creatinine [Mass/Vol] 2.13 mg/dL High 0.70-1.20 [facility] Serum globulin measurementOr dered By: River Hamm on 12-16-2024 Globulin (S) [Mass/Vol] 2.0 g/dL Low 2.2-4.2 [facility] Serum glucose measurement (m ass/volume)Ordered By: Jakob Flower on 12-16-2024 Glucose [Mass/Vol] 115 mg/dL High 70-99 [facility] Serum or plasma alanine sanchez otransferase (ALT) measurementOrdered By: River Hamm on 12-16-2024 ALT [Catalytic activity/Vol] 10 U/L <47 [facility] Serum or plasma albumin elvia urement (mass/volume)Ordered By: River Hamm on 12-16-2024 Albumin [Mass/Vol] 4.4 g/dL 3.4-4.8 [facility] Serum or plasma alkaline bonnie sphatase measurementOrdered By: River Hamm on 12-16-2024 ALP [Catalytic activity/Vol] 81 U/L 40-129 [facility] Serum or plasma calcium elvia urement (mass/volume)Ordered By: Jakob Flower on 12-16-2024 Calcium [Mass/Vol] 9.0 mg/dL 7.6-11.0 [facility] Serum or plasma urea nitroge n measurement (mass/volume)Ordered By: Jakob Flower on 12-16-2024 Urea nitrogen [Mass/Vol] 42 mg/dL High 4-19 [facility] Sodium levelOrdered By: Jakob Flower on 12-16-2024 Sodium [Moles/Vol] 139 mmol/L 133-145 [facility] TSH DL <= 0.005 mIU/L QnOrde red By: River Hamm on 12-16-2024 TSH Qn 0.746 uIU/mL 0.300-4.20 0 [facility] Thyroid Stim Hormone (TSH)on 12-16-2024 TSH 0.746 uIU/mL Normal 0.300-4.20 0 [facility] Comment on above: Performed By: #### L 501.9520, L300.4310, L500.3400, L300.3900 ####[facility] [address] [place], [place], [id number] Total proteinOrdered By: Abran Hamm on 12-16-2024 Protein [Mass/Vol] 6.4 g/dL 5.9-8.4 [facility] MR/PAT.ANEon 12-14-2024 MR/PAT.ANE Normal [facility] Surgery Visit Reporton 12-10 Surgery Visit Report Normal [facility] Anion gap in Serum or Plasma Ordered By: Jakob Flower on 12-06-2024 Anion gap [Moles/Vol] 16 mmol/L High 5-15 [facility] BUN/creatinine ratioOrdered By: Jakob Flower on 12-06-2024 Urea nitrogen/Creatinine [Mass ratio] 19.8 mg/mg 10- [facility] Basic Metabolic Profile (BMP )on 12-06-2024 BUN/CRE 19.8 RATIO Normal - [facility] Comment on above: Order Comment: ADRIANA FLOWER ORDEROrder Date: 11/30/24Order Info: 666-06 - BMP Performed By: #### L [id number] ####[facility] [address] [place], [address] Calcium [Mass/Vol] 9.5 mg/dL Normal 7.6-11.0 [facility] Comment on above: Order Comment: PER Gabriella FLOWER ORDEROrder Date: 11/30/24Order Info: 666-06 - BMP Performed By: #### L 500.2500 ####[facility] [address] [place], [address] Chloride [Moles/Vol] 102 mmol/L Normal 98-108 [facility] Comment on above: Order Comment: PER Gabriella FLOWER ORDEROrder Date: 11/30/24Order Info: 666-06 - BMP Performed By: #### L 500.2500 ####[facility] [address] [place], [address] CO2 [Moles/Vol] 21.4 mmol/L Normal 21.0-32.0 [facility] Comment on above: Order Comment: PER Gabriella FLOWER ORDEROrder Date: 11/30/24Order Info: 666-06 - BMP Performed By: #### L 500.2500 ####[facility] [address] [place], [address] Creatinine [Mass/Vol] 2.59 mg/dL High 0.70-1.20 [facility] Comment on above: Order Comment: PER Gabriella FLOWER ORDEROrder Date: 11/30/24Order Info: 666-06 - BMP Performed By: #### L 500.2500 ####[facility] [address] [place], [address] GAP 16 High 5-15 [facility] Comment on above: Order Comment: PER Gabriella FLOWER ORDEROrder Date: 11/30/24Order Info: 666-06 - BMP Performed By: #### L [id number] ####[facility] [address] [place], [place], [phone] GFR/1.73 sq M.predicted among non-blacks MDRD (S/P/Bld) [Vol rate/Area] 24 mL/min/{1.73_m2} Low >60 [facility] Comment on above: Order Comment: ADRIANA FLOWER ORDEROrder Date: 11/30/24Order Info: 666-06 - BMP Result Comment: mL/m in/1.73m2 CKD-EPI Creatinine Equation (2020) Performed By: #### L 500.2500 ####[facility] [address] [place], [address] Glucose [Mass/Vol] 160 mg/dL High 70-99 [facility] Comment on above: Order Comment: PER Gabriella FLOWER ORDEROrder Date: 11/30/24Order Info: 666-06 - BMP Performed By: #### L 500.2500 ####[facility] [address] [place], [address] Potassium [Moles/Vol] 4.3 mmol/L Normal 3.3-5.1 [facility] Comment on above: Order Comment: ADRIANA FLOWER ORDEROrder Date: 11/30/24Order Info: 666-06 - BMP Performed By: #### L 500.2500 ####[facility] [address] [place], [address] Sodium [Moles/Vol] 139 mmol/L Normal 133-145 [facility] Comment on above: Order Comment: ADRIANA FLOWER ORDEROrder Date: 11/30/24Order Info: 666-06 - BMP Performed By: #### L 500.2500 ####[facility] [address] [place], [address] Urea nitrogen [Mass/Vol] 51 mg/dL High 4-19 [facility] Comment on above: Order Comment: ADRIANA FLOWER ORDEROrder Date: 11/30/24Order Info: 666-06 - BMP Performed By: #### L 500.2500 ####[facility] [address] [place], [address] Carbon dioxide, total [Moles /volume] in Central venous bloodOrdered By: Jakob Flower on 12-06-2024 CO2 [Moles/Vol] 21.4 mmol/L 21.0-32.0 [facility] Chloride assayOrdered By: Jonah Flower on 12-06-2024 Chloride [Moles/Vol] 102 mmol/L 98-108 [facility] Glomerular filtration rate ( GFR) estimation/1.73 sq m using serum, plasma, or whole bOrdered By: Jakob Flower on 12-06-2024 GFR/1.73 sq M.predicted among non-blacks MDRD (S/P/Bld) [Vol rate/Area] 24 mL/min/{1.73_m2} Low >60 [facility] Comment on above: mL/min/1.73m2 CKD-EP I Creatinine Equation (2020) Potassium measurement (mass/ volume)Ordered By: Jakob Flower on 12-06-2024 Potassium (Unsp spec) [Mass/Vol] 4.3 mmol/L 3.3-5.1 [facility] Serum creatinine measurement (mass/volume)Ordered By: Jakob Flower on 12-06-2024 Creatinine [Mass/Vol] 2.59 mg/dL High 0.70-1.20 [facility] Serum glucose measurement (m ass/volume)Ordered By: Jakob Flower on 12-06-2024 Glucose [Mass/Vol] 160 mg/dL High 70-99 [facility] Serum or plasma calcium elvia urement (mass/volume)Ordered By: Jakob Flower on 12-06-2024 Calcium [Mass/Vol] 9.5 mg/dL 7.6-11.0 [facility] Serum or plasma urea nitroge n measurement (mass/volume)Ordered By: Jakob Flower on 12-06-2024 Urea nitrogen [Mass/Vol] 51 mg/dL High 4-19 [facility] Sodium levelOrdered By: Jakob Flower on 12-06-2024 Sodium [Moles/Vol] 139 mmol/L 133-145 [facility] Anion gap in Serum or Plasma Ordered By: Jakob Flower on 11-29-2024 Anion gap [Moles/Vol] 12 mmol/L 5-15 [facility] BUN/creatinine ratioOrdered By: Jakob Flower on 11-29-2024 Urea nitrogen/Creatinine [Mass ratio] 20.2 mg/mg High 10-20 [facility] Bilirubin, totalOrdered By: Jakob Flower on 11-29-2024 Bilirubin [Mass/Vol] 0.35 mg/dL 0.00-1.30 [facility] Carbon dioxide, total [Moles /volume] in Central venous bloodOrdered By: Jakob Flower on 11-29-2024 CO2 [Moles/Vol] 19.5 mmol/L Low 21.0-32.0 [facility] Chloride assayOrdered By: Jonah Flower on 11-29-2024 Chloride [Moles/Vol] 106 mmol/L 98-108 [facility] Comprehensive Metabolic Prof ilon 11-29-2024 Albumin [Mass/Vol] 4.5 g/dL Normal 3.4-4.8 [facility] Comment on above: Order Comment: Order Date: 11/25/24Order Info: [id number] - CMPOrder Info: [id number] - MG Performed By: #### L 500.4050, L501.5200 ####[facility] [address] [place], [place], [id number] Albumin/Globulin [Mass ratio] 2.2 {ratio} Normal 0.9-2.4 [facility] Comment on above: Order Comment: Order Date: 11/25/24Order Info: [id number] - CMPOrder Info: [id number] - MG Performed By: #### L 500.4050, L501.5200 ####[facility] [address] [place], [address] ALK PHOS 73 U/L Normal 40-129 [facility] Comment on above: Order Comment: Order Date: 11/25/24Order Info: [id number] - CMPOrder Info: [id number] - MG Performed By: #### L 500.4050, L501.5200 ####[facility] [address] [place], [address] ALT [Catalytic activity/Vol] 8 U/L Normal <=46 [facility] Comment on above: Order Comment: Order Date: 11/25/24Order Info: [id number] - CMPOrder Info: [id number] - MG Performed By: #### L 500.4050, L501.5200 ####[facility] [address] [place], [address] AST [Catalytic activity/Vol] 16 U/L Normal <=37 [facility] Comment on above: Order Comment: Order Date: 11/25/24Order Info: [id number] - CMPOrder Info: [id number] - MG Performed By: #### L 500.4050, L501.5200 ####[facility] [address] [place], [address] Bilirubin [Mass/Vol] 0.35 mg/dL Normal 0.00-1.30 [facility] Comment on above: Order Comment: Order Date: 11/25/24Order Info: [id number] - CMPOrder Info: [id number] - MG Performed By: #### L 500.4050, L501.5200 ####[facility] [address] [place], [address] BUN/CRE 20.2 RATIO High 10-20 [facility] Comment on above: Order Comment: Order Date: 11/25/24Order Info: [id number] - CMPOrder Info: [id number] - MG Performed By: #### L 500.4050, L501.5200 ####[facility] [address] [place], [address] Calcium [Mass/Vol] 9.2 mg/dL Normal 7.6-11.0 [facility] Comment on above: Order Comment: Order Date: 11/25/24Order Info: [id number] - CMPOrder Info: [id number] - MG Performed By: #### L 500.4050, L501.5200 ####[facility] [address] [place], [address] Chloride [Moles/Vol] 106 mmol/L Normal 98-108 [facility] Comment on above: Order Comment: Order Date: 11/25/24Order Info: [id number] - CMPOrder Info: [id number] - MG Performed By: #### L 500.4050, L501.5200 ####[facility] [address] [place], [address] CO2 [Moles/Vol] 19.5 mmol/L Low 21.0-32.0 [facility] Comment on above: Order Comment: Order Date: 11/25/24Order Info: [id number] - CMPOrder Info: [id number] - MG Performed By: #### L 500.4050, L501.5200 ####[facility] [address] [place], [address] Creatinine [Mass/Vol] 2.42 mg/dL High 0.70-1.20 [facility] Comment on above: Order Comment: Order Date: 11/25/24Order Info: [id number] - CMPOrder Info: [id number] - MG Performed By: #### L 500.4050, L501.5200 ####[facility] [address] [place], [address] GAP 12 Normal 5-15 [facility] Comment on above: Order Comment: Order Date: 11/25/24Order Info: [id number] - CMPOrder Info: [id number] - MG Performed By: #### L 500.4050, L501.5200 ####[facility] [address] [place], [address] GFR/1.73 sq M.predicted among non-blacks MDRD (S/P/Bld) [Vol rate/Area] 26 mL/min/{1.73_m2} Low >60 [facility] Comment on above: Order Comment: Order Date: 11/25/24Order Info: [id number] - CMPOrder Info: [id number] - MG Result Comment: mL/m in/1.73m2 CKD-EPI Creatinine Equation (2020) Performed By: #### L 500.4050, L501.5200 ####[facility] [address] [place], [address] Globulin (S) [Mass/Vol] 2.1 g/dL Low 2.2-4.2 [facility] Comment on above: Order Comment: Order Date: 11/25/24Order Info: [id number] - CMPOrder Info: [id number] - MG Performed By: #### L 500.4050, L501.5200 ####[facility] [address] [place], [address] Glucose [Mass/Vol] 111 mg/dL High 70-99 [facility] Comment on above: Order Comment: Order Date: 11/25/24Order Info: [id number] - CMPOrder Info: [id number] - MG Performed By: #### L 500.4050, L501.5200 ####[facility] [address] [place], [address] Potassium [Moles/Vol] 6.0 mmol/L Invalid Interpretation Code 3.3-5.1 [facility] Comment on above: Order Comment: Order Date: 11/25/24Order Info: [id number] - CMPOrder Info: [id number] - MG Performed By: #### L 500.4050, L501.5200 ####[facility] [address] [place], [address] Sodium [Moles/Vol] 138 mmol/L Normal 133-145 [facility] Comment on above: Order Comment: Order Date: 11/25/24Order Info: [id number] - CMPOrder Info: [id number] - MG Performed By: #### L 500.4050, L501.5200 ####[facility] [address] [place], [address] T PROT 6.6 g/dL Normal 5.9-8.4 [facility] Comment on above: Order Comment: Order Date: 11/25/24Order Info: [id number] - CMPOrder Info: - MG Performed By: #### L 500.4050, L501.5200 ####[facility] [address] [place], [address] Urea nitrogen [Mass/Vol] 49 mg/dL High 4-19 [facility] Comment on above: Order Comment: Order Date: 11/25/24Order Info: [id number] - CMPOrder Info: - MG Performed By: #### L 500.4050, L501.5200 ####[facility] [address] [place], [address] Glomerular filtration rate ( GFR) estimation/1.73 sq m using serum, plasma, or whole bOrdered By: Jakob Flower on 11-29-2024 GFR/1.73 sq M.predicted among non-blacks MDRD (S/P/Bld) [Vol rate/Area] 26 mL/min/{1.73_m2} Low >60 [facility] Comment on above: mL/min/1.73m2 CKD-EP I Creatinine Equation (2020) Laboratory - Chemistry and C hemistry - challengeOrdered By: Jakob Flower on 11-29-2024 AST [Catalytic activity/Vol] 16 U/L <38 [facility] Magnesiumon 11-29-2024 Magnesium [Mass/Vol] 2.2 mg/dL Normal 1.5-2.2 [facility] Comment on above: Order Comment: Order Date: 11/25/24Order Info: [id number] - CMPOrder Info: - MG Performed By: #### L 500.4050, L501.5200 ####[facility] [address] [place], [address] Magnesium measurement (mass/ volume)Ordered By: Jakob Flower on 11-29-2024 Magnesium (Unsp spec) [Mass/Vol] 2.2 mg/dL 1.5-2.2 [facility] No Panel InformationOrdered By: Jakob Flower on 11-29-2024 16 U/L <38 [facility] Potassium measurement (mass/ volume)Ordered By: Jakob Flower on 11-29-2024 Potassium (Unsp spec) [Mass/Vol] 6.0 mmol/L High 3.3-5.1 [facility] Random urine creatinine elvia urement (mass/volume)Ordered By: Jakob Flower on 11-29-2024 Creatinine Unsp time (U) [Mass/Vol] 67.70 mg/dL 39.00-259. 00 [facility] Serum creatinine measurement (mass/volume)Ordered By: Jakob Flower on 11-29-2024 Creatinine [Mass/Vol] 2.42 mg/dL High 0.70-1.20 [facility] Serum globulin measurementOr dered By: Jakob Flower on 11-29-2024 Globulin (S) [Mass/Vol] 2.1 g/dL Low 2.2-4.2 [facility] Serum glucose measurement (m ass/volume)Ordered By: Jakob Flower on 11-29-2024 Glucose [Mass/Vol] 111 mg/dL High 70-99 [facility] Serum or plasma alanine sanchez otransferase (ALT) measurementOrdered By: Jakob Flower on 11-29-2024 ALT [Catalytic activity/Vol] 8 U/L <47 [facility] Serum or plasma albumin elvia urement (mass/volume)Ordered By: Jakob Flower on 11-29-2024 Albumin [Mass/Vol] 4.5 g/dL 3.4-4.8 [facility] Serum or plasma albumin/glob ulin mass ratioOrdered By: Jakob Flower on 11-29-2024 Albumin/Globulin [Mass ratio] 2.2 {ratio} 0.9-2.4 [facility] Serum or plasma alkaline bonnie sphatase measurementOrdered By: Jakob Flower on 11-29-2024 ALP [Catalytic activity/Vol] 73 U/L 40-129 [facility] Serum or plasma calcium elvia urement (mass/volume)Ordered By: Jakob Flower on 11-29-2024 Calcium [Mass/Vol] 9.2 mg/dL 7.6-11.0 [facility] Serum or plasma urea nitroge n measurement (mass/volume)Ordered By: Jakob Flower on 11-29-2024 Urea nitrogen [Mass/Vol] 49 mg/dL High 4-19 [facility] Sodium levelOrdered By: Jakob Flower on 11-29-2024 Sodium [Moles/Vol] 138 mmol/L 133-145 [facility] Total proteinOrdered By: Catlaina Flower on 11-29-2024 Protein [Mass/Vol] 6.6 g/dL 5.9-8.4 [facility] Urine albumin measurement [facility] detection limit of 20 mg/L or less (mass/volume)Ordered By: Jakob Flower on 11-29-2024 Albumin DL <= 20 mg/L (U) [Mass/Vol] 111.0 mg/L NO RANGE EST. [facility] CREATININE FINGERSTICKon Creatinine [Mass/Vol] 2.3 mg/dL High 0.70-1.30 [facility] Comment on above: Performed By: #### L 9100.0200 ####[facility] [address] [place], [address] GFR/1.73 sq M.predicted among non-blacks MDRD (S/P/Bld) [Vol rate/Area] 29.0000 mL/min/{1.73_m2} Low >60 [facility] Comment on above: Performed By: #### L 9100.0200 ####[facility] [address] [place], [place], [address] CTA Abd/Pelvis W/WO Contrast on 11-18-2024 CTA Abd/Pelvis W/WO Contrast Normal [facility] Creatinine measurement at be dsideOrdered By: Singh Amaya on 11-18-2024 Creatinine [Mass/Vol] 2.3 mg/dL High 0.70-1.30 [facility] EGFROrdered By: Singh Amaya on 11-18-2024 GFR/1.73 sq M.predicted among non-blacks MDRD (S/P/Bld) [Vol rate/Area] 29.0000 mL/min/{1.73_m2} Low >60 [facility] 12 Lead EKGon 11-08-2024 12 Lead EKG Normal [facility] Absolute lymphocyte countOrd ered By: Frederick Roberts on 11-08-2024 Lymphocytes Auto (Unsp spec) [#/Vol] 0.74 10*3/uL Low 0.83-4.51 [facility] Absolute lymphocyte countOrd ered By: Mathieu Mcintyre on 11-08-2024 Lymphocytes Auto (Unsp spec) [#/Vol] 0.88 10*3/uL 0.83-4.51 [facility] Absolute neutrophil countOrd ered By: Frederick Roberts on 11-08-2024 Neutrophils (Bld) [#/Vol] 3.1 10*3/uL 2.0-7.7 [facility] Absolute neutrophil countOrd ered By: Mathieu Mcintyre on 11-08-2024 Neutrophils (Bld) [#/Vol] 2.8 10*3/uL 2.0-7.7 [facility] Anion gap in Serum or Plasma Ordered By: Frederick Roberts on 11-08-2024 Anion gap [Moles/Vol] 11 mmol/L 11-11 [facility] Anion gap in Serum or Plasma Ordered By: Mathieu Mcintyre on 11-08-2024 Anion gap [Moles/Vol] 11 mmol/L 11-11 [facility] Automated lymphocyte count a s percentage of total leukocytesOrdered By: Frederick Roberts on 11-08-2024 Lymphocytes/100 WBC Auto (Unsp spec) 16.3 % Low [facility] Automated lymphocyte count a s percentage of total leukocytesOrdered By: Mathieu Mcintyre on 11-08-2024 Lymphocytes/100 WBC Auto (Unsp spec) 19.3 % [facility] BUN/creatinine ratioOrdered By: Frederick Roberts on 11-08-2024 Urea nitrogen/Creatinine [Mass ratio] 19.3 mg/mg 04-18 [facility] BUN/creatinine ratioOrdered By: Mathieu Mcintyre on 11-08-2024 Urea nitrogen/Creatinine [Mass ratio] 19.1 mg/mg 04-18 [facility] Basic Metabolic Profile (BMP )on 11-08-2024 BUN/CRE 19.3 RATIO Normal 10-20 [facility] Comment on above: Performed By: #### L 500.2500, L100.0100 ####[facility] [address] [place], [address] ECRCL 22.75 ml/min Low 50-250 [facility] Comment on above: Performed By: #### L 500.2500, L100.0100 ####[facility] [address] [place], [address] GAP 11 Normal 5-15 [facility] Comment on above: Performed By: #### L 500.2500, L100.0100 ####[facility] [address] [place], [address] Potassium [Moles/Vol] 6.6 mmol/L Invalid Interpretation Code 3.3-5.1 [facility] Comment on above: Result Comment: Hemo lysis present, Results??could be affected.??Critical Result(s) Called at: 1700 by:??CODY RILEY Results read back by same. Performed By: #### L 500.2500, L100.0100 ####[facility] [address] [place], [address] Potassium [Moles/Vol] 6.1 mmol/L Invalid Interpretation Code 3.3-5.1 [facility] Comment on above: Order Comment: K+ WA S RAN ON SERUM AND PLASMA RESULTS MATCHED.CRITICAL VALUE CALLED TO [id number]/12/25 1419 Jackie Bernardo.RESULTS READ BACK BY SAME. Result Comment: AMENDED REPORT 11/08/24 1419 K previously reported as: 6.1 *H mmol/LCritical Result(s) Called at: by:??Results read back bysame.Critical Result(s) Called at: by:??Results read back bysame.Critical Result(s) Called at: by:??Results read back bysame.Critical Result(s) Called at: by:??Results read back bysame.Critical Result(s) Called at: by:??Results read back bysame. Performed By: #### L 503.6030, L503.6550, L500.2500, L100.0100 ####[facility] [address] [place], [address] Basophil percentageOrdered B y: Frederick Roberts on 11-08-2024 Basophils/100 WBC (Bld) 0.9 % 0-1 [facility] Basophil percentageOrdered B y: Mathieu Mcintyre on 11-08-2024 Basophils/100 WBC (Bld) 0.7 % 0-1 [facility] Bedside Glucoseon 11-08-2024 FINGERSTICK GLU 223 mg/dL High 74-106 [facility] Comment on above: Result Comment: KENRICK RENE OF PATIENT CARE PER NURSING PROTOCOL Performed By: #### L 501.080 ####[facility] [address] [place], [address] CBC W/Diff, Automatedon 10-28 Absolute Lymph 0.74 X10 3/uL Low 0.83-4.51 [facility] Comment on above: Performed By: #### L 500.2500, L100.0100 ####[facility] [address] [place], [address] Absolute Neut 3.1 X10 3/uL Normal 2.0-7.7 [facility] Comment on above: Performed By: #### L 500.2500, L100.0100 ####[facility] [address] [place], [address] Basophils/100 WBC (Bld) 0.9 % Normal 0-1 [facility] Comment on above: Performed By: #### L 500.2500, L100.0100 ####[facility] [address] [place], [address] Eosinophils/100 WBC (Bld) 4.8 % Normal 0-5 [facility] Comment on above: Performed By: #### L 500.2500, L100.0100 ####[facility] [address] [place], [address] Erythrocyte distribution width (RBC) [Ratio] 13.2 % Normal 11.6-14.6 [facility] Comment on above: Performed By: #### L 500.2500, L100.0100 ####[facility] [address] [place], [address] Hematocrit (Bld) [Volume fraction] 32.7 % Low 40-54 [facility] Comment on above: Performed By: #### L 500.2500, L100.0100 ####[facility] [address] [place], [address] Hemoglobin (Bld) [Mass/Vol] 10.6 g/dL Low 13.0-16.5 [facility] Comment on above: Performed By: #### L 500.2500, L100.0100 ####[facility] [address] [place], [address] IG% 0.000 Normal 0.0-0.9 [facility] Comment on above: Result Comment: IG% - Immature Granulocytes (promyelocytes, myelocytes andmetamyelocytes) > 1% indicates that a LEFT SHIFT is Present. Performed By: #### L 500.2500, L100.0100 ####[facility] [address] [place], [address] Lymphocytes/100 WBC (Bld) 16.3 % Low 19-41 [facility] Comment on above: Performed By: #### L 500.2500, L100.0100 ####[facility] [address] [place], [address] MCH (RBC) [Entitic mass] 34.5 pg High 27.0-32.0 [facility] Comment on above: Performed By: #### L 500.2500, L100.0100 ####[facility] [address] [place], [address] MCHC (RBC) [Mass/Vol] 32.4 g/dL Normal 32-36 [facility] Comment on above: Performed By: #### L 500.2500, L100.0100 ####[facility] [address] [place], [address] MCV (RBC) [Entitic vol] 106.5 fL High 80-94 [facility] Comment on above: Performed By: #### L 500.2500, L100.0100 ####[facility] [address] [place], [address] Monocytes/100 WBC (Bld) 10.1 % High 0-10 [facility] Comment on above: Performed By: #### L 500.2500, L100.0100 ####[facility] [address] [place], [address] Neutrophils/100 WBC (Bld) 67.9 % Normal 47-70 [facility] Comment on above: Performed By: #### L 500.2500, L100.0100 ####[facility] [address] [place], [address] Nucleated RBC (Bld) [#/Vol] 0 10*3/uL Normal 0-5 [facility] Comment on above: Performed By: #### L 500.2500, L100.0100 ####[facility] [address] [place], [address] Platelet mean volume (Bld) [Entitic vol] 9.9 fL Normal 6.2-12.0 [facility] Comment on above: Performed By: #### L 500.2500, L100.0100 ####[facility] [address] [place], [address] Platelets (Bld) [#/Vol] 123 10*3/uL Low 150-450 [facility] Comment on above: Performed By: #### L 500.2500, L100.0100 ####[facility] [address] [place], [address] RBC (Bld) [#/Vol] 3.07 10*6/uL Low 4.6-6.2 [facility] Comment on above: Performed By: #### L 500.2500, L100.0100 ####[facility] [address] [place], [address] RDW SD 51.6 fl High 35.1-43.9 [facility] Comment on above: Performed By: #### L 500.2500, L100.0100 ####[facility] [address] [place], [address] WBC (Bld) [#/Vol] 4.5 10*3/uL Normal 4.4-11.0 [facility] Comment on above: Performed By: #### L 500.2500, L100.0100 ####[facility] [address] [place], [address] Absolute Lymph 0.88 X10 3/uL Normal 0.83-4.51 [facility] Comment on above: Performed By: #### L 503.6030, L503.6550, L500.2500, L100.0100 ####[facility] [address] [place], [address] Absolute Neut 2.8 X10 3/uL Normal 2.0-7.7 [facility] Comment on above: Performed By: #### L 503.6030, L503.6550, L500.2500, L100.0100 ####[facility] [address] [place], [address] Basophils/100 WBC (Bld) 0.7 % Normal 0-1 [facility] Comment on above: Performed By: #### L 503.6030, L503.6550, L500.2500, L100.0100 ####[facility] [address] [place], [address] Eosinophils/100 WBC (Bld) 7.0 % High 0-5 [facility] Comment on above: Performed By: #### L 503.6030, L503.6550, L500.2500, L100.0100 ####[facility] [address] [place], [address] Erythrocyte distribution width (RBC) [Ratio] 13.3 % Normal 11.6-14.6 [facility] Comment on above: Performed By: #### L 503.6030, L503.6550, L500.2500, L100.0100 ####[facility] [address] [place], [address] Hematocrit (Bld) [Volume fraction] 31.1 % Low 40-54 [facility] Comment on above: Performed By: #### L 503.6030, L503.6550, L500.2500, L100.0100 ####[facility] [address] [place], [address] Hemoglobin (Bld) [Mass/Vol] 10.2 g/dL Low 13.0-16.5 [facility] Comment on above: Performed By: #### L 503.6030, L503.6550, L500.2500, L100.0100 ####[facility] [address] [place], [address] IG% 0.200 Normal 0.0-0.9 [facility] Comment on above: Result Comment: IG% - Immature Granulocytes (promyelocytes, myelocytes andmetamyelocytes) > 1% indicates that a LEFT SHIFT is Present. Performed By: #### L 503.6030, L503.6550, L500.2500, L100.0100 ####[facility] [address] [place], [address] Lymphocytes/100 WBC (Bld) 19.3 % Normal 19-41 [facility] Comment on above: Performed By: #### L 503.6030, L503.6550, L500.2500, L100.0100 ####[facility] [address] [place], [address] MCH (RBC) [Entitic mass] 35.2 pg High 27.0-32.0 [facility] Comment on above: Performed By: #### L 503.6030, L503.6550, L500.2500, L100.0100 ####[facility] [address] [place], [address] MCHC (RBC) [Mass/Vol] 32.8 g/dL Normal 32-36 [facility] Comment on above: Performed By: #### L 503.6030, L503.6550, L500.2500, L100.0100 ####[facility] [address] [place], [address] MCV (RBC) [Entitic vol] 107.2 fL High 80-94 [facility] Comment on above: Performed By: #### L 503.6030, L503.6550, L500.2500, L100.0100 ####[facility] [address] [place], [address] Monocytes/100 WBC (Bld) 12.5 % High 0-10 [facility] Comment on above: Performed By: #### L 503.6030, L503.6550, L500.2500, L100.0100 ####[facility] [address] [place], [address] Neutrophils/100 WBC (Bld) 60.3 % Normal 47-70 [facility] Comment on above: Performed By: #### L 503.6030, L503.6550, L500.2500, L100.0100 ####[facility] [address] [place], [address] Nucleated RBC (Bld) [#/Vol] 0 10*3/uL Normal 0-5 [facility] Comment on above: Performed By: #### L 503.6030, L503.6550, L500.2500, L100.0100 ####[facility] [address] [place], [address] Platelet mean volume (Bld) [Entitic vol] 9.6 fL Normal 6.2-12.0 [facility] Comment on above: Performed By: #### L 503.6030, L503.6550, L500.2500, L100.0100 ####[facility] [address] [place], [address] Platelets (Bld) [#/Vol] 118 10*3/uL Low 150-450 [facility] Comment on above: Performed By: #### L 503.6030, L503.6550, L500.2500, L100.0100 ####[facility] [address] [place], [address] RBC (Bld) [#/Vol] 2.90 10*6/uL Low 4.6-6.2 [facility] Comment on above: Performed By: #### L 503.6030, L503.6550, L500.2500, L100.0100 ####[facility] [address] [place], [address] RDW SD 52.8 fl High 35.1-43.9 [facility] Comment on above: Performed By: #### L 503.6030, L503.6550, L500.2500, L100.0100 ####[facility] [address] [place], [address] WBC (Bld) [#/Vol] 4.6 10*3/uL Normal 4.4-11.0 [facility] Comment on above: Performed By: #### L 503.6030, L503.6550, L500.2500, L100.0100 ####[facility] [address] [place], [address] Carbon dioxide, total [Moles /volume] in Central venous bloodOrdered By: Frederick Roberts on 11-08-2024 CO2 [Moles/Vol] 18.5 mmol/L Low 21.0-32.0 [facility] Comment on above: Performed By: #### L 500.2500, L100.0100 ####[facility] [address] [place], [address] Carbon dioxide, total [Moles /volume] in Central venous bloodOrdered By: Mathieu Mcintyre on 11-08-2024 CO2 [Moles/Vol] 17.6 mmol/L Low 21.0-32.0 [facility] Chloride assayOrdered By: Robin Roberts on 11-08-2024 Chloride [Moles/Vol] 107 mmol/L Normal 98-108 [facility] Comment on above: Performed By: #### L 500.2500, L100.0100 ####[facility] [address] [place], [address] Chloride assayOrdered By: Grace Mcintyre on 11-08-2024 Chloride [Moles/Vol] 109 mmol/L High 98-108 [facility] Emergency Department Summary on 11-08-2024 Emergency Department Summary Normal [facility] Eosinophil percentageOrdered By: Frederick Roberts on 11-08-2024 Eosinophils/100 WBC (Bld) 4.8 % 0-5 [facility] Eosinophil percentageOrdered By: Mathieu Mcintyre on 11-08-2024 Eosinophils/100 WBC (Bld) 7.0 % High 0-5 [facility] Erythrocyte distribution wid th ratioOrdered By: Frederick Roberts on 11-08-2024 Erythrocyte distribution width (RBC) [Ratio] 13.2 % 11.6-14.6 [facility] Erythrocyte distribution wid th ratioOrdered By: Mathieu Mcintyre on 11-08-2024 Erythrocyte distribution width (RBC) [Ratio] 13.3 % 11.6-14.6 [facility] Erythrocyte distribution wid th standard deviationOrdered By: Frederick Roberts on 11-08-2024 Erythrocyte distribution width (RBC) [Ratio] 51.6 fl High 35.1-43.9 [facility] Erythrocyte distribution wid th standard deviationOrdered By: Mathieu Mcintyre on 11-08-2024 Erythrocyte distribution width (RBC) [Ratio] 52.8 fl High 35.1-43.9 [facility] Ferritinon 11-08-2024 Ferritin [Mass/Vol] 971 ng/mL High 37-417 [facility] Comment on above: Performed By: #### L 503.6011, L503.6550, L500.2500, L100.0100 ####[facility] [address] [place], [place], [id number] Glomerular filtration rate ( GFR) estimation/1.73 sq m using serum, plasma, or whole bOrdered By: Frederick Roberts on 11-08-2024 GFR/1.73 sq M.predicted among non-blacks MDRD (S/P/Bld) [Vol rate/Area] 24 mL/min/{1.73_m2} Low >60 [facility] Comment on above: mL/min/1.73m2 CKD-EP I Creatinine Equation (2020) Glomerular filtration rate ( GFR) estimation/1.73 sq m using serum, plasma, or whole bOrdered By: Mathieu Mcintyre on 11-08-2024 GFR/1.73 sq M.predicted among non-blacks MDRD (S/P/Bld) [Vol rate/Area] 24 mL/min/{1.73_m2} Low >60 [facility] Comment on above: mL/min/1.73m2 CKD-EP I Creatinine Equation (2020) Result Comment: mL/m in/1.73m2 CKD-EPI Creatinine Equation (2020) Performed By: #### L 500.2500, L100.0100 ####[facility] [address] [place], [place], [id number] [facility] de[facility]dered By: Frederick Roberts on 11-08-2024 Glucose [Mass/Vol] 223 mg/dL High 74-106 [facility] Comment on above: MANAGEMENT OF PATIEN T CARE PER NURSING PROTOCOL Hematocrit Auto (Bld) [Volum e fraction]Ordered By: Frederick Roberts on 11-08-2024 Hematocrit (Bld) [Volume fraction] 32.7 % Low 40-54 [facility] Hematocrit Auto (Bld) [Volum e fraction]Ordered By: Mathieu Mcintyre on 11-08-2024 Hematocrit (Bld) [Volume fraction] 31.1 % Low 40-54 [facility] Hemoglobin measurementOrdere d By: rFederick Roberts on 11-08-2024 Hemoglobin (Bld) [Mass/Vol] 10.6 g/dL Low 13.0-16.5 [facility] Hemoglobin measurementOrdere d By: Mathieu Mcintyre on 11-08-2024 Hemoglobin (Bld) [Mass/Vol] 10.2 g/dL Low 13.0-16.5 [facility] Immature granulocytes/100 WB C Auto (Bld)Ordered By: Frederick Roberts on 11-08-2024 Immature granulocytes/100 WBC (Bld) 0.000 % 0.0-0.9 [facility] Comment on above: IG% - Immature Granu locytes (promyelocytes, myelocytes and metamyelocytes) > 1% indicates that a LEFT SHIFT is Present. Immature granulocytes/100 WB C Auto (Bld)Ordered By: Mathieu Mcintyre on 11-08-2024 Immature granulocytes/100 WBC (Bld) 0.200 % 0.0-0.9 [facility] Comment on above: IG% - Immature Granu locytes (promyelocytes, myelocytes and metamyelocytes) > 1% indicates that a LEFT SHIFT is Present. Iron measurement (mass/mass) Ordered By: Mathieu Mcintyre on 11-08-2024 Iron (Unsp spec) [Mass/Mass] 95 ug/dL 65-175 [facility] Iron+Iron Binding Capacityon 11-08-2024 TIBC 214 ug/dL Low 250-450 [facility] Comment on above: Order Comment: K+ IRENE Iverson RAN ON SERUM AND PLASMA RESULTS MATCHED.CRITICAL VALUE CALLED TO [id number] Chai Bernardo.RESULTS READ BACK BY SAME. Performed By: #### L 503.6030, L503.6550, L500.2500, L100.0100 ####[facility] [address] [place], [address] MCV (mean corpuscular volume ) determinationOrdered By: Frederick Roberts on 11-08-2024 MCV (RBC) [Entitic vol] 106.5 fL High 80-94 [facility] MCV (mean corpuscular volume ) determinationOrdered By: Mathieu Mcintyre on 11-08-2024 MCV (RBC) [Entitic vol] 107.2 fL High 80-94 [facility] Mean corpuscular hemoglobin (MCH) determinationOrdered By: Frederick Roberts on 11-08-2024 MCH (RBC) [Entitic mass] 34.5 pg High 27.0-32.0 [facility] Mean corpuscular hemoglobin (MCH) determinationOrdered By: Mathieu Mcintyre on 11-08-2024 MCH (RBC) [Entitic mass] 35.2 pg High 27.0-32.0 [facility] Mean corpuscular hemoglobin concentration (MCHC) determinationOrdered By: Frederick Roberts on 11-08-2024 MCHC (RBC) [Mass/Vol] 32.4 g/dL [facility] Mean corpuscular hemoglobin concentration (MCHC) determinationOrdered By: Mathieu Mcintyre on 11-08-2024 MCHC (RBC) [Mass/Vol] 32.8 g/dL [facility] Mean platelet volume determi nationOrdered By: Frederick Roberts on 11-08-2024 Platelet mean volume (Bld) [Entitic vol] 9.9 fL 6.2-12.0 [facility] Mean platelet volume determi nationOrdered By: Mathieu Mcintyre on 11-08-2024 Platelet mean volume (Bld) [Entitic vol] 9.6 fL 6.2-12.0 [facility] Monocyte percentageOrdered B y: Frederick Roberts on 11-08-2024 Monocytes/100 WBC (Bld) 10.1 % High 0-10 [facility] Monocyte percentageOrdered B y: Mathieu Mcintyre on 11-08-2024 Monocytes/100 WBC (Bld) 12.5 % High 0-10 [facility] Neutrophil percentageOrdered By: Frederick Roberts on 11-08-2024 Neutrophils/100 WBC (Bld) 67.9 % - [facility] Neutrophil percentageOrdered By: Mathieu Mcintyre on 11-08-2024 Neutrophils/100 WBC (Bld) 60.3 % 47-70 [facility] No Panel InformationOrdered By: Mathieu Mcintyre on 11-08-2024 Unsaturated Iron Binding Capacity 119 ug/dL Low 228-428 [facility] 119 ug/dL Low 228-428 [facility] Nucleated red blood cell per centageOrdered By: Frederick Roberts on 11-08-2024 Nucleated RBC/100 WBC (Bld) [Ratio] 0 % 0-5 [facility] Nucleated red blood cell per centageOrdered By: Mathieu Mcintyre on 11-08-2024 Nucleated RBC/100 WBC (Bld) [Ratio] 0 % 0-5 [facility] Oncology Visit Reporton 10-28 Oncology Visit Report Normal [facility] Platelet countOrdered By: Robin Roberts on 11-08-2024 Platelets (Bld) [#/Vol] 123 10*3/uL Low 150-450 [facility] Platelet countOrdered By: Grace Mcintyre on 11-08-2024 Platelets (Bld) [#/Vol] 118 10*3/uL Low 150-450 [facility] Potassiumon 11-08-2024 Potassium [Moles/Vol] 5.0 mmol/L Normal 3.3-5.1 [facility] Comment on above: Performed By: #### L 501.5600 ####[facility] [address] [place], [place], [id number] Potassium measurement (mass/ volume)Ordered By: Frederick Roberts on 11-08-2024 Potassium (Unsp spec) [Mass/Vol] 5.0 mmol/L 3.3-5.1 [facility] Potassium measurement (mass/ volume)Ordered By: Mathieu Mcintyre on 11-08-2024 Potassium (Unsp spec) [Mass/Vol] 6.1 mmol/L High 3.3-5.1 [facility] Comment on above: Previous reported re sult: 6.2 mmol/LEdited by: RALPH on 11/08/24:1418 AMENDED REPORT 11/08/24 1418 K previously reported as: 6.2 *H mmol/L Critical Result(s) Called at: by: Results read back by same.Critical Result(s) Called at: by: Results read back by same.Previous reported result: 6.1 mmol/LEdited by: MAME on 11/08/24:1419 AMENDED REPORT 11/08/249 K previously reported as: 6.1 *H mmol/L Critical Result(s) Called at: by: Results read back by same.Critical Result(s) Called at: by: Results read back by same. Critical Result(s) Called at: by: Results read back by same.Critical Result(s) Called at: by: Results read back by same.Critical Result(s) Called at: by: Results read back by same. RBC Auto (Bld) [#/Vol]Ordere d By: Frederick Roberts on 11-08-2024 RBC (Bld) [#/Vol] 3.07 10*6/uL Low 4.6-6.2 [facility] RBC Auto (Bld) [#/Vol]Ordere d By: Mathieu Mcintyre on 11-08-2024 RBC (Bld) [#/Vol] 2.90 10*6/uL Low 4.6-6.2 [facility] Serum creatinine measurement (mass/volume)Ordered By: Frederick Roberts on 11-08-2024 Creatinine [Mass/Vol] 2.54 mg/dL High 0.70-1.20 [facility] Comment on above: Performed By: #### L 500.2500, L100.0100 ####[facility] [address] [place], [address] Serum creatinine measurement (mass/volume)Ordered By: Mathieu Mcintyre on 11-08-2024 Creatinine [Mass/Vol] 2.59 mg/dL High 0.70-1.20 [facility] Serum glucose measurement (m ass/volume)Ordered By: Frederick Roberts on 11-08-2024 Glucose [Mass/Vol] 101 mg/dL High 70-99 [facility] Comment on above: Performed By: #### L 500.2500, L100.0100 ####[facility] [address] [facility]. [place], [place], [address] Serum glucose measurement (m ass/volume)Ordered By: Mathieu Mcintyre on 11-08-2024 Glucose [Mass/Vol] 93 mg/dL 70-99 [facility] Serum or plasma calcium elvia urement (mass/volume)Ordered By: Frederick Roberts on 11-08-2024 Calcium [Mass/Vol] 9.6 mg/dL Normal 7.6-11.0 [facility] Comment on above: Performed By: #### L 500.2500, L100.0100 ####[facility] [address] [place], [place], [id number] Serum or plasma calcium elvia urement (mass/volume)Ordered By: Mathieu Mcintyre on 11-08-2024 Calcium [Mass/Vol] 9.3 mg/dL 7.6-11.0 [facility] Serum or plasma ferritin pedro luis surement (mass/volume)Ordered By: Mathieu Mcintyre on 11-08-2024 Ferritin [Mass/Vol] 971 ng/mL High 37-417 [facility] Serum or plasma iron saturat ion measurement (mass fraction)Ordered By: Mathieu Mcintyre on 11-08-2024 Iron saturation [Mass fraction] 44.4 % 9-55 [facility] Comment on above: Previous reported re sult: 44.0 %Edited by: MAME on 11/08/24:1418 AMENDED REPORT 11/08/24 1418 IRON SATURATION previously reported as: 44.0 % Serum or plasma urea nitroge n measurement (mass/volume)Ordered By: Frederick Roberts on 11-08-2024 Urea nitrogen [Mass/Vol] 49 mg/dL High 4-19 [facility] Comment on above: Performed By: #### L 500.2500, L100.0100 ####[facility] [address] [place], [address] Serum or plasma urea nitroge n measurement (mass/volume)Ordered By: Mathieu Mcintyre on 11-08-2024 Urea nitrogen [Mass/Vol] 50 mg/dL High 4-19 [facility] Sodium levelOrdered By: Shankar Roberts on 11-08-2024 Sodium [Moles/Vol] 137 mmol/L Normal 133-145 [facility] Comment on above: Performed By: #### L 500.2500, L100.0100 ####[facility] [address] [place], [place], [id number] Sodium levelOrdered By: Rory Mcintyre on 11-08-2024 Sodium [Moles/Vol] 138 mmol/L 133-145 [facility] White blood cell (WBC) count Ordered By: Frederick Roberts on 11-08-2024 WBC (Bld) [#/Vol] 4.5 10*3/uL 4.4-11.0 [facility] White blood cell (WBC) count Ordered By: Mathieu Mcintyre on 11-08-2024 WBC (Bld) [#/Vol] 4.6 10*3/uL 4.4-11.0 [facility] Ankle Brachial Indexon 10-06 Ankle Brachial Index Normal [facility] Bilirubin directOrdered By: Dayne Rico on 10-06-2024 Bilirubin.direct [Mass/Vol] 0.19 mg/dL 0.00-0.30 [facility] Bilirubin, totalOrdered By: Dayne Rico on 10-06-2024 Bilirubin [Mass/Vol] 0.34 mg/dL 0.00-1.30 [facility] Calculated very low density lipoprotein (VLDL) cholesterol measurementOrdered By: Dayne Rico on 10-06-2024 Calculated very low density lipoprotein (VLDL) cholesterol measurement 12 mg/dL 5-40 [facility] VLDL Cholesterol 12 mg/dL 5-40 [facility] Carotid Duplex Ultrasoundon 10-06-2024 Carotid Duplex Ultrasound Normal [facility] LDL calc ser/plasOrdered By: Dayne Rico on 10-06-2024 Cholesterol in LDL [Mass/Vol] 45 mg/dL [facility] Comment on above: Ogccnzmbts=544-361 m g/dL & Higher Nlzn=970 mg/dL or greater LDL Cholesterol, Calculated 45 mg/dL [facility] Comment on above: Ytmeahqweq=826-941 m g/dL & Higher Ayjw=820 mg/dL or greater Laboratory - Chemistry and C hemistry - challengeOrdered By: Dayne Rico on 10-06-2024 AST [Catalytic activity/Vol] 16 U/L <38 [facility] Lipid Profileon 10-06-2024 CHOL:HDL 1.75 Normal [facility] Comment on above: Performed By: #### L 500.4100, L500.3400 ####[facility] [address] [place], [place], [phone]) Cholesterol [Mass/Vol] 133 mg/dL Normal <=200 [facility] Comment on above: Result Comment: Chol esterol level, Desirable <200 mg/dLBorderline high cholesterol 200-239 mg/dLHigh cholesterol >=240 mg/dLRecommendations of the NCEP Adult Treatment Panel for thefollowing risk-cutoff thresholds for the [place] Americanpulation. Performed By: #### L 500.4100, L500.3400 ####[facility] [address] [place], [place], [phone]) Cholesterol in HDL [Mass/Vol] 76 mg/dL Normal [facility] Comment on above: Result Comment: Anne Marie onal Cholesterol Education Program (NCEP) guidelines:<40 mg/dL: Low HDL-cholesterol (major risk factor for CHD)>= 60 mg/dL: High HDL-cholesterol (negative risk factor forCHD)HDL-cholesterol is affected by a number of factors, e.g.smoking, exercise, hormones, sex and age. Performed By: #### L 500.4100, L500.3400 ####[facility] [address] [place], [place], [phone] Cholesterol in LDL [Mass/Vol] 45 mg/dL Normal [facility] Comment on above: Result Comment: Bord tejxcq=077-237 mg/dL Higher Fubr=237 mg/dL or greater Performed By: #### L 500.4100, L500.3400 ####[facility] [address] [place], [address] Cholesterol in VLDL [Mass/Vol] 12 mg/dL Normal 5-40 [facility] Comment on above: Performed By: #### L 500.4100, L500.3400 ####[facility] [address] [place], [address] Triglyceride [Mass/Vol] 58 mg/dL Normal [facility] Comment on above: Result Comment: The drugs N-Acetylcysteine and Metamizole may falselydepress this assay.Normal range: <150 mg/dLBorderline High: 150-199 mg/dLHigh: 200-499 mg/dLVery High: >500 mg/dL Performed By: #### L 500.4100, L500.3400 ####[facility] [address] [place], [address] Liver Profileon 10-06-2024 Albumin [Mass/Vol] 4.3 g/dL Normal 3.4-4.8 [facility] Comment on above: Performed By: #### L 500.4100, L500.3400 ####[facility] [address] [place], [address] ALK PHOS 84 U/L Normal 40-129 [facility] Comment on above: Performed By: #### L 500.4100, L500.3400 ####[facility] [address] [place], [address] ALT [Catalytic activity/Vol] 8 U/L Normal <=46 [facility] Comment on above: Performed By: #### L 500.4100, L500.3400 ####[facility] [address] [place], [address] AST [Catalytic activity/Vol] 16 U/L Normal <=37 [facility] Comment on above: Performed By: #### L 500.4100, L500.3400 ####[facility] [address] [place], [address] Bilirubin [Mass/Vol] 0.34 mg/dL Normal 0.00-1.30 [facility] Comment on above: Performed By: #### L 500.4100, L500.3400 ####[facility] [address] [place], [address] Bilirubin.direct [Mass/Vol] 0.19 mg/dL Normal 0.00-0.30 [facility] Comment on above: Performed By: #### L 500.4100, L500.3400 ####[facility] [address] [place], [address] Globulin (S) [Mass/Vol] 2.2 g/dL Normal 2.2-4.2 [facility] Comment on above: Performed By: #### L 500.4100, L500.3400 ####[facility] [address] [place], [address] T PROT 6.5 g/dL Normal 5.9-8.4 [facility] Comment on above: Performed By: #### L 500.4100, L500.3400 ####[facility] [address] [place], [address] Mesenteric Artery Duplexon 0 10-06-2024 Mesenteric Artery Duplex Normal [facility] No Panel InformationOrdered By: Dayne Rico on 10-06-2024 16 U/L <38 [facility] Screening total cholesterol/ high density lipoprotein (HDL) cholesterol ratioOrdered By: Dayne Rico on 10-06-2024 Cholesterol.total/Maria E sterol in HDL [Mass ratio] 1.75 {ratio} [facility] Serum globulin measurementOr dered By: Dayne Rico on 10-06-2024 Globulin (S) [Mass/Vol] 2.2 g/dL 2.2-4.2 [facility] Serum or plasma alanine sanchez otransferase (ALT) measurementOrdered By: Dayne Rico on 10-06-2024 ALT [Catalytic activity/Vol] 8 U/L <47 [facility] Serum or plasma albumin elvia urement (mass/volume)Ordered By: Dayne Rico on 10-06-2024 Albumin [Mass/Vol] 4.3 g/dL 3.4-4.8 [facility] Serum or plasma alkaline bonnie sphatase measurementOrdered By: Dayne Rico on 10-06-2024 ALP [Catalytic activity/Vol] 84 U/L 40-129 [facility] Serum or plasma cholesterol in HDL measurement (mass/volume)Ordered By: Dayne Rico on 10-06-2024 Cholesterol in HDL [Mass/Vol] 76 mg/dL >40 [facility] Comment on above: National Cholesterol Education Program (NCEP) guidelines:<40 mg/dL: Low HDL-cholesterol (major risk factor for CHD)>= 60 mg/dL: High HDL-cholesterol (negative risk factor for CHD)HDL-cholesterol is affected by a number of factors, e.g. smoking, exercise, hormones, sex and age. Serum or plasma cholesterol measurement (mass/volume)Ordered By: Dayne Rico on 10-06-2024 Cholesterol [Mass/Vol] 133 mg/dL <201 [facility] Comment on above: Cholesterol level, D esirable <200 mg/dLBorderline high cholesterol 200-239 mg/dLHigh cholesterol >=240 mg/dLRecommendations of the NCEP Adult Treatment Panel for the following risk-cutoff thresholds for the [place] population. Total proteinOrdered By: Alon Rico on 10-06-2024 Protein [Mass/Vol] 6.5 g/dL 5.9-8.4 [facility] Triglycerides measurementOrd ered By: Dayne Rico on 10-06-2024 Triglyceride [Mass/Vol] 58 mg/dL <199 [facility] Comment on above: The drugs N-Acetylcy steine and Metamizole may falsely depress this assay. Normal range: <150 mg/dLBorderline High: 150-199 mg/dLHigh: 200-499 mg/dLVery High: >500 mg/dL Cardiology Visit Reporton Cardiology Visit Report Normal [facility] T4 Total, Thyroxinon 025 T4 [Mass/Vol] 5.8 ug/dL Normal 4.5-12.1 [facility] Comment on above: Performed By: #### L 501.9520, L501.9310 ####[facility] [address] [place], [place], [id number] TSH DL <= 0.005 mIU/L QnOrde red By: Rosa Maria Santacruz on 09-14-2024 Thyroid Stimulating Hormone (TSH) 0.827 uIU/mL 0.300-4.20 0 [facility] TSH Qn 0.827 uIU/mL 0.300-4.20 0 [facility] Thyroid Stim Hormone (TSH)on 09-14-2024 TSH 0.827 uIU/mL Normal 0.300-4.20 0 [facility] Comment on above: Performed By: #### L 501.9520, L501.9310 ####[facility] [address] [place], [address] ThyroxineOrdered By: Rosa Maria resendiz on 09-14-2024 T4 [Mass/Vol] 5.8 ug/dL 4.5-12.1 [facility] Absolute lymphocyte countOrd ered By: Hans Armendariz on 11-10-2023 Lymphocytes Auto (Unsp spec) [#/Vol] 0.95 10*3/uL 0.83-4.51 [facility] Absolute lymphocyte countOrd ered By: Mathieu Mcinytre on 11-10-2023 Lymphocytes Auto (Unsp spec) [#/Vol] 0.90 10*3/uL 0.83-4.51 [facility] Alanine aminotransferase (AL T) assayOrdered By: Mathieu Mcintyre on 11-10-2023 ALT [Catalytic activity/Vol] 12 U/L Low 16-61 [facility] Albumin to globulin ratioOrd ered By: Mathieu Mcintyre on 11-10-2023 Albumin/Globulin [Mass ratio] 1.3 {ratio} 0.9-2.4 [facility] Alkaline phosphataseOrdered By: Mathieu Mcintyre on 11-10-2023 ALP [Catalytic activity/Vol] 113 U/L 45-117 [facility] Automated lymphocyte count a s percentage of total leukocytesOrdered By: Hans Maxwellashia on 11-10-2023 Lymphocytes/100 WBC Auto (Unsp spec) 18.7 % - [facility] Automated lymphocyte count a s percentage of total leukocytesOrdered By: Mathieu Melendezisra on 11-10-2023 Lymphocytes/100 WBC Auto (Unsp spec) 16.7 % - [facility] Basophil percentageOrdered B y: Hans Armendariz on 11-10-2023 Basophils/100 WBC (Bld) 0.8 % 0-1 [facility] Chloride [Moles/Vol] 114 mmol/L 98-107 [facility] Eosinophils/100 WBC (Bld) 6.1 % 0-5 [facility] Glucose [Mass/Vol] 128 mg/dL 74-106 [facility] Comment on above: Fasting Glucose resu lt greater than or equal to 126 mg/dL suggests DIABETES MELLITUS per A.D.A. criteria. Hemoglobin (Bld) [Mass/Vol] 9.9 g/dL 13.0-16.5 [facility] Monocytes/100 WBC (Bld) 10.1 % 0-10 [facility] Neutrophils (Bld) [#/Vol] 3.3 10*3/uL 2.0-7.7 [facility] Neutrophils/100 WBC (Bld) 64.1 % 47-70 [facility] Potassium [Moles/Vol] 5.4 mmol/L 3.5-5.1 [facility] Sodium [Moles/Vol] 140 mmol/L 136-145 [facility] WBC (Bld) [#/Vol] 5.1 10*3/uL 4.4-11.0 [facility] Basophil percentageOrdered B y: Mathieu Melendezisra on 11-10-2023 Chloride [Moles/Vol] 114 mmol/L 98-107 [facility] Glucose [Mass/Vol] 114 mg/dL 74-106 [facility] Comment on above: Fasting Glucose resu lt from 100 to 125 mg/dL suggests IMPAIRED HOMEOSTASIS per A.D.A. criteria. Potassium [Moles/Vol] 6.2 mmol/L 3.5-5.1 [facility] Comment on above: Critical Result(s) C alled at: 15:38:35 11/10/2023 by: [facility] [place] [facility] Results read back by same. Sodium [Moles/Vol] 141 mmol/L 136-145 [facility] Basophils/100 WBC (Bld) 0.9 % 0-1 [facility] Bilirubin [Mass/Vol] 0.50 mg/dL 0.20-1.00 [facility] Comment on above: For patients on eltr ombopag therapy, use of Dimension Warden TBIL is not recommended. Eosinophils/100 WBC (Bld) 8.3 % 0-5 [facility] Hemoglobin (Bld) [Mass/Vol] 9.9 g/dL 13.0-16.5 [facility] LDH [Catalytic activity/Vol] 142 U/L 87-241 [facility] Monocytes/100 WBC (Bld) 10.2 % 0-10 [facility] Neutrophils (Bld) [#/Vol] 3.4 10*3/uL 2.0-7.7 [facility] Neutrophils/100 WBC (Bld) 63.5 % 47-70 [facility] Protein [Mass/Vol] 6.5 g/dL 6.4-8.2 [facility] WBC (Bld) [#/Vol] 5.4 10*3/uL 4.4-11.0 [facility] Determination of erythrocyte mean corpuscular volume (MCV)Ordered By: Hans Armendariz on 11-10-2023 MCV (RBC) [Entitic vol] 105.7 fL 80-94 [facility] Determination of erythrocyte mean corpuscular volume (MCV)Ordered By: Mathieu Mcintyre on 11-10-2023 MCV (RBC) [Entitic vol] 106.8 fL 80-94 [facility] Erythrocyte distribution wid th ratioOrdered By: Hans Armendariz on 11-10-2023 Erythrocyte distribution width (RBC) [Ratio] 14.0 % 11.6-14.6 [facility] Erythrocyte distribution wid th ratioOrdered By: Mathieu Mcintyre on 11-10-2023 Erythrocyte distribution width (RBC) [Ratio] 14.0 % 11.6-14.6 [facility] Erythrocyte distribution wid th standard deviationOrdered By: Hans Armendariz on 11-10-2023 Erythrocyte distribution width (RBC) [Entitic vol] 55.3 fL 35.1-43.9 [facility] Erythrocyte distribution wid th standard deviationOrdered By: Mathieu Mcintyre on 11-10-2023 Erythrocyte distribution width (RBC) [Entitic vol] 55.1 fL 35.1-43.9 [facility] Erythrocyte sedimentation ra teOrdered By: Mathieu Mcintyre on 11-10-2023 ESR (Bld) [Velocity] 1 mm/h 0-20 [facility] Hematocrit Auto (Bld) [Volum e fraction]Ordered By: Hans Armendariz on 11-10-2023 Hematocrit (Bld) [Volume fraction] 31.4 % 40-54 [facility] Hematocrit Auto (Bld) [Volum e fraction]Ordered By: Mathieu Mcintyre on 11-10-2023 Hematocrit (Bld) [Volume fraction] 31.5 % 40-54 [facility] Immature granulocytes/100 WB C Auto (Bld)Ordered By: Hans Armendariz on 11-10-2023 Immature granulocytes/100 WBC (Bld) 0.200 % 0.0-0.9 [facility] Comment on above: IG% - Immature Granu locytes (promyelocytes, myelocytes and metamyelocytes) > 1% indicates that a LEFT SHIFT is Present. Immature granulocytes/100 WB C Auto (Bld)Ordered By: Mathieu Mcintyre on 11-10-2023 Immature granulocytes/100 WBC (Bld) 0.400 % 0.0-0.9 [facility] Comment on above: IG% - Immature Granu locytes (promyelocytes, myelocytes and metamyelocytes) > 1% indicates that a LEFT SHIFT is Present. Iron measurement (mass/mass) Ordered By: Mathieu Mcintyre on 11-10-2023 Iron (Unsp spec) [Mass/Mass] 107 ug/dL 65-175 [facility] Laboratory - Chemistry and C hemistry - challengeOrdered By: Hans Armendariz on 11-10-2023 CO2 [Moles/Vol] 21.0 mmol/L 21.0-32.0 [facility] Urea nitrogen/Creatinine [Mass ratio] 22.7 mg/mg 10- [facility] Laboratory - Chemistry and C hemistry - challengeOrdered By: Mathieu Mcintyre on 11-10-2023 CO2 [Moles/Vol] 22.0 mmol/L 21.0-32.0 [facility] Urea nitrogen/Creatinine [Mass ratio] 22.9 mg/mg 04-18 [facility] AST [Catalytic activity/Vol] 11 U/L Low 15-37 [facility] Ferritin [Mass/Vol] 910 ng/mL 26-388 [facility] - Hematology and Cell countsOrdered By: Hans Armendariz on 11-10-2023 MCH (RBC) [Entitic mass] 33.3 pg 27.0-32.0 [facility] MCHC (RBC) [Mass/Vol] 31.5 g/dL - [facility] Nucleated RBC/100 WBC (Bld) [Ratio] 0 % 0-5 [facility] Platelet mean volume (Bld) [Entitic vol] 9.5 fL 6.2-12.0 [facility] Platelets (Bld) [#/Vol] 131 10*3/uL 150-450 [facility] Laboratory - Hematology and Cell countsOrdered By: Mathieu Mcintyre on 11-10-2023 MCH (RBC) [Entitic mass] 33.6 pg 27.0-32.0 [facility] MCHC (RBC) [Mass/Vol] 31.4 g/dL - [facility] Nucleated RBC/100 WBC (Bld) [Ratio] 0 % 0-5 [facility] Platelet mean volume (Bld) [Entitic vol] 9.5 fL 6.2-12.0 [facility] Platelets (Bld) [#/Vol] 132 10*3/uL 150-450 [facility] No Panel InformationOrdered By: Hans Armendariz on 11-10-2023 Estimated Creatinine Clearance Calc 22.62 ml/min [facility] Estimated GFR (MDRD) Amer 31 mL/min >60 [facility] Comment on above: GFR Calc Estimated GFR (MDRD) Non-Af Amer 25 mL/min >60 [facility] Comment on above: Non- GFR Calc No Panel InformationOrdered By: Mathieu Mcintyre on 11-10-2023 Estimated Creatinine Clearance Calc 23.24 ml/min [facility] Estimated GFR (MDRD) Amer 32 mL/min >60 [facility] Comment on above: GFR Calc Estimated GFR (MDRD) Non-Af Amer 26 mL/min >60 [facility] Comment on above: Non- GFR Calc C-Reactive Protein Extended Range < 2.90 mg/L 0.0-3.0 [facility] Comment on above: C-Reactive Protein ( CRP) provides useful information for thediagnosis, therapy and monitoring of inflammatory processesand associated diseases. For the evaluation of Relative Riskfor Cardiovascular Disease, a High Sensitivity CRP (HSCRP)should be ordered. Total Iron Binding Capacity 206 ug/dL 250-450 [facility] 11 U/L Low 15-37 [facility] RBC Auto (Bld) [#/Vol]Ordere d By: Hans Armendariz on 11-10-2023 RBC (Bld) [#/Vol] 2.97 10*6/uL 4.6-6.2 [facility] RBC Auto (Bld) [#/Vol]Ordere d By: Mathieu Mcintyre on 11-10-2023 RBC (Bld) [#/Vol] 2.95 10*6/uL 4.6-6.2 [facility] Serum albumin measurementOrd ered By: Mathieu Mcintyre on 11-10-2023 Albumin [Mass/Vol] 3.7 g/dL 3.2-5.0 [facility] Serum globulin measurementOr dered By: Mathieu Mcintyre on 11-10-2023 Globulin (S) [Mass/Vol] 2.8 g/dL 2.2-4.2 [facility] Serum or plasma calcium elvia urement (mass/volume)Ordered By: Hans Armendariz on 11-10-2023 Calcium [Mass/Vol] 9.0 mg/dL 8.5-10.1 [facility] Serum or plasma calcium elvia urement (mass/volume)Ordered By: Mathieu Mcintyre on 11-10-2023 Calcium [Mass/Vol] 9.1 mg/dL 8.5-10.1 [facility] Serum or plasma creatinine m easurement (mass/volume)Ordered By: Hans Armendariz on 11-10-2023 Creatinine [Mass/Vol] 2.60 mg/dL 0.70-1.30 [facility] Comment on above: The validity of the calculated GFR & GFRAA in patients over 70 years has not been determined. Clinical correlation is essential. Serum or plasma creatinine m easurement (mass/volume)Ordered By: Mathieu Mcintyre on 11-10-2023 Creatinine [Mass/Vol] 2.53 mg/dL 0.70-1.30 [facility] Comment on above: The validity of the calculated GFR & GFRAA in patients over 70 years has not been determined. Clinical correlation is essential. Serum or plasma iron saturat ion measurement (mass fraction)Ordered By: Mathieu Mcintyre on 11-10-2023 Iron saturation [Mass fraction] 51.9 % 15.0-55.0 [facility] Serum or plasma urea nitroge n measurement (mass/volume)Ordered By: Hans Armendariz on 11-10-2023 Urea nitrogen [Mass/Vol] 59 mg/dL 01-14 [facility] Serum or plasma urea nitroge n measurement (mass/volume)Ordered By: Mathieu Mcintyre on 11-10-2023 Urea nitrogen [Mass/Vol] 58 mg/dL 01-14 [facility] Thin prep Papanicolaou smear with manual screeningOrdered By: Hans Armendariz on 11-10-2023 Thin prep Papanicolaou smear with manual screening 5 - [facility] Thin prep Papanicolaou smear with manual screeningOrdered By: Mathieu Mcintyre on 11-10-2023 Thin prep Papanicolaou smear with manual screening 5 -15 [facility] Thin prep Papanicolaou smear with manual screening 3.7 g/dL 3.2-5.0 [facility] Thin prep Papanicolaou smear with manual screening 11 U/L 15-37 [facility] Anaerobic cultureOrdered By: Warren Sampson on 09-03-2023 Bacteria identified Anaer cx Nom (Unsp spec) No anaerobic bacteria isolated. [facility] Fungus cultureOrdered By: Grace Sampson on 09-03-2023 Fungus identified Cx Nom (Unsp spec) [facility] Gram stain for investigation of transfusion reactionOrdered By: Warren Sampson on 09-03-2023 Microscopic observation Gram stain Nom (Unsp spec) [facility] Routine wound cultureOrdered By: Warren Sampson on 09-03-2023 Bacteria identified Cx Nom (Wound) No growth aerobically. [facility] Basophil percentageOrdered B y: Rosa Maria Santacruz on 08-19-2023 Basophil percentage 118 mg/dL 74-106 [facility] Basophil percentage 140 mmol/L 136-145 [facility] Basophil percentage 4.8 mmol/L 3.5-5.1 [facility] Basophil percentage 110 mmol/L 98-107 [facility] Chloride [Moles/Vol] 110 mmol/L 98-107 [facility] Glucose [Mass/Vol] 118 mg/dL 74-106 [facility] Comment on above: Fasting Glucose resu lt from 100 to 125 mg/dL suggests IMPAIRED HOMEOSTASIS per A.D.A. criteria. Potassium [Moles/Vol] 4.8 mmol/L 3.5-5.1 [facility] Sodium [Moles/Vol] 140 mmol/L 136-145 [facility] Laboratory - Chemistry and C hemistry - challengeOrdered By: Rosa Maria Santacruz on 08-19-2023 CO2 [Moles/Vol] 23.0 mmol/L 21.0-32.0 [facility] Urea nitrogen/Creatinine [Mass ratio] 22.2 mg/mg 04-18 [facility] No Panel InformationOrdered By: Rosa Maria Santacruz on 08-19-2023 Estimated GFR (MDRD) Amer 26 mL/min >60 [facility] Comment on above: GFR Calc Estimated GFR (MDRD) Non-Af Amer 22 mL/min >60 [facility] Comment on above: Non- GFR Calc 22 mL/min >60 [facility] 26 mL/min >60 [facility] 22.2 RATIO 04-18 [facility] 23.0 mmol/L 21.0-32.0 [facility] Serum or plasma calcium elvia urement (mass/volume)Ordered By: Rosa Maria Santacruz on 08-19-2023 Calcium [Mass/Vol] 8.9 mg/dL 8.5-10.1 [facility] Serum or plasma creatinine m easurement (mass/volume)Ordered By: Rosa Maria Santacruz on 08-19-2023 Creatinine [Mass/Vol] 2.97 mg/dL 0.70-1.30 [facility] Comment on above: The validity of the calculated GFR & GFRAA in patients over 70 years has not been determined. Clinical correlation is essential. Serum or plasma urea nitroge n measurement (mass/volume)Ordered By: Rosa Maria Santacruz on 08-19-2023 Urea nitrogen [Mass/Vol] 66 mg/dL 7-18 [facility] Thin prep Papanicolaou smear with manual screeningOrdered By: Rosa Maria Santacruz on 08-19-2023 Thin prep Papanicolaou smear with manual screening 7 5-15 [facility] Absolute lymphocyte countOrd ered By: Mathieu Mcintyre on 08-18-2023 Lymphocytes Auto (Unsp spec) [#/Vol] 0.86 10*3/uL 0.83-4.51 [facility] Automated lymphocyte count a s percentage of total leukocytesOrdered By: Mathieu Mcintyre on 08-18-2023 Lymphocytes/100 WBC Auto (Unsp spec) 13.8 % 19-41 [facility] Basophil percentageOrdered B y: Mathieu Mcintyre on 08-18-2023 Basophil percentage 5.7 mmol/L 3.5-5.1 [facility] Basophil percentage 10.7 g/dL 13.0-16.5 [facility] Basophil percentage 127 mg/dL 74-106 [facility] Basophil percentage 6.6 g/dL 6.4-8.2 [facility] Basophil percentage 0.40 mg/dL 0.20-1.00 [facility] Basophil percentage 137 mmol/L 136-145 [facility] Basophil percentage 110 mmol/L 98-107 [facility] Basophil percentage 141 U/L 87-241 [facility] Basophils (Bld) [#/Vol] 6.2 10*3/uL 4.4-11.0 [facility] Basophils (Bld) [#/Vol] 4.3 10*3/uL 2.0-7.7 [facility] Basophils/100 WBC (Bld) 68.7 % 47-70 [facility] Basophils/100 WBC (Bld) 10.4 % 0-10 [facility] Basophils/100 WBC (Bld) 6.3 % 0-5 [facility] Basophils/100 WBC (Bld) 0.6 % 0-1 [facility] Determination of erythrocyte mean corpuscular volume (MCV)Ordered By: Mathieu Mcintyre on 08-18-2023 MCV (RBC) [Entitic vol] 109.9 fL 80-94 [facility] Erythrocyte distribution wid th ratioOrdered By: Mathieu Mcintyre on 08-18-2023 Erythrocyte distribution width (RBC) [Ratio] 13.8 % 11.6-14.6 [facility] Erythrocyte distribution wid th standard deviationOrdered By: Mathieu Mcintyre on 08-18-2023 Erythrocyte distribution width (RBC) [Entitic vol] 56.3 fL 35.1-43.9 [facility] Hematocrit Auto (Bld) [Volum e fraction]Ordered By: Mathieu Mcintyre on 08-18-2023 Hematocrit (Bld) [Volume fraction] 33.4 % 40-54 [facility] Immature granulocytes/100 WB C Auto (Bld)Ordered By: Mathieu Mcintyre on 08-18-2023 Immature granulocytes/100 WBC (Bld) 0.200 % 0.0-0.9 [facility] Iron measurement (mass/mass) Ordered By: Mathieu Mcintyre on 08-18-2023 Iron (Unsp spec) [Mass/Mass] 83 ug/dL 65-175 [facility] No Panel InformationOrdered By: Mathieu Mcintyre on 08-18-2023 35.2 pg 27.0-32.0 [facility] 32.0 g/dL 32-36 [facility] 112 K/mm3 150-450 [facility] 8.9 fl 6.2-12.0 [facility] 0 % 0-5 [facility] 23 mL/min >60 [facility] 28 mL/min >60 [facility] 20.63 ml/min [facility] 22.1 RATIO 10-20 [facility] 2.8 g/dL 2.2-4.2 [facility] 1.4 RATIO 0.9-2.4 [facility] 112 U/L 45-117 [facility] 11 U/L 16-61 [facility] 22.0 mmol/L 21.0-32.0 [facility] 242 ug/dL 250-450 [facility] 1275 ng/mL 26-388 [facility] RBC Auto (Bld) [#/Vol]Ordere d By: Mathieu Mcintyre on 08-18-2023 RBC (Bld) [#/Vol] 3.04 10*6/uL 4.6-6.2 [facility] Serum or plasma calcium elvia urement (mass/volume)Ordered By: Mathieu Mcintyre on 08-18-2023 Calcium [Mass/Vol] 8.7 mg/dL 8.5-10.1 [facility] Serum or plasma creatinine m easurement (mass/volume)Ordered By: Mathieu Mcintyre on 08-18-2023 Creatinine [Mass/Vol] 2.85 mg/dL 0.70-1.30 [facility] Serum or plasma iron saturat ion measurement (mass fraction)Ordered By: Mathieu Mcintyre on 08-18-2023 Iron saturation [Mass fraction] 34.3 % 15.0-55.0 [facility] Serum or plasma urea nitroge n measurement (mass/volume)Ordered By: Mathieu Mcintyre on 08-18-2023 Urea nitrogen [Mass/Vol] 63 mg/dL 7-18 [facility] Thin prep Papanicolaou smear with manual screeningOrdered By: Mathieu Mcintyre on 08-18-2023 Thin prep Papanicolaou smear with manual screening 3.8 g/dL 3.2-5.0 [facility] Thin prep Papanicolaou smear with manual screening 9 U/L 15-37 [facility] Thin prep Papanicolaou smear with manual screening 5 5-15 [facility] Absolute lymphocyte countOrd ered By: Mathieu Mcintyre on 07-07-2023 Lymphocytes Auto (Unsp spec) [#/Vol] 0.65 10*3/uL 0.83-4.51 [facility] Basophil percentageOrdered B y: Mathieu Mcintyre on 07-07-2023 Basophil percentage 98 mg/dL 74-106 [facility] Basophil percentage 6.2 g/dL 6.4-8.2 [facility] Basophil percentage 0.40 mg/dL 0.20-1.00 [facility] Basophil percentage 143 mmol/L 136-145 [facility] Basophil percentage 4.5 mmol/L 3.5-5.1 [facility] Basophil percentage 112 mmol/L 98-107 [facility] Basophil percentage 158 U/L 87-241 [facility] Basophils (Bld) [#/Vol] 3.7 10*3/uL 4.4-11.0 [facility] Basophils (Bld) [#/Vol] 2.5 10*3/uL 2.0-7.7 [facility] Basophils/100 WBC (Bld) 66.9 % 47-70 [facility] Basophils/100 WBC (Bld) 3.8 % 0-5 [facility] Basophils/100 WBC (Bld) 1.1 % 0-1 [facility] Blood erythrocytes count (nu mber/volume)Ordered By: Mathieu Mcintyre on 07-07-2023 RBC (Bld) [#/Vol] 2.30 10*6/uL 4.6-6.2 [facility] Blood hemoglobin measurement (mass/volume)Ordered By: Mathieu Mcintyre on 07-07-2023 Hemoglobin (Bld) [Mass/Vol] 7.9 g/dL 13.0-16.5 [facility] Blood lymphocytes/100 leukoc ytesOrdered By: Mathieu Mcintyre on 07-07-2023 Lymphocytes/100 WBC (Bld) 17.6 % 19-41 [facility] Blood monocytes/100 leukocyt esOrdered By: Mathieu Mcintyre on 07-07-2023 Monocytes/100 WBC (Bld) 10.3 % 0-10 [facility] Blood platelet mean volumeOr dered By: Mathieu Mcintyre on 07-07-2023 Platelet mean volume (Bld) [Entitic vol] 9.8 fL 6.2-12.0 [facility] Determination of erythrocyte mean corpuscular volume (MCV)Ordered By: Mathieu Mcintyre on 07-07-2023 MCV (RBC) [Entitic vol] 113.9 fL 80-94 [facility] Hematocrit Auto (Bld) [Volum e fraction]Ordered By: Mathieu Mcintyre on 07-07-2023 Hematocrit (Bld) [Volume fraction] 26.2 % 40-54 [facility] Iron measurement (mass/mass) Ordered By: Mathieu Mcintyre on 07-07-2023 Iron (Unsp spec) [Mass/Mass] 51 ug/dL 65-175 [facility] Laboratory - Hematology and Cell countsOrdered By: Mathieu Mcintyre on 07-07-2023 Anisocytosis Ql (Bld) 2+ [facility] MCHC Auto (RBC) [Mass/Vol]Or dered By: Mathieu Mcintyre on 07-07-2023 MCHC (RBC) [Mass/Vol] 30.2 g/dL 32-36 [facility] No Panel InformationOrdered By: Mathieu Mcintyre on 07-07-2023 34.3 pg 27.0-32.0 [facility] 16.2 % 11.6-14.6 [facility] 69.3 fl 35.1-43.9 [facility] 0.300 % 0.0-0.9 [facility] 0 % 0-5 [facility] 2+ [facility] 22 mL/min >60 [facility] 26 mL/min >60 [facility] 20.41 ml/min [facility] 19.7 RATIO 10-20 [facility] 2.9 g/dL 2.2-4.2 [facility] 91 U/L 45-117 [facility] 12 U/L 16-61 [facility] 25.0 mmol/L 21.0-32.0 [facility] 239 ug/dL 250-450 [facility] Platelets bldOrdered By: Anderson Mcintyre on 07-07-2023 Platelets (Bld) [#/Vol] 130 10*3/uL 150-450 [facility] Serum or plasma albumin elvia urement (mass/volume)Ordered By: Mathieu Mcintyre on 07-07-2023 Albumin [Mass/Vol] 3.3 g/dL 3.2-5.0 [facility] Serum or plasma albumin/glob ulin mass ratioOrdered By: Mathieu Mcintyre on 07-07-2023 Albumin/Globulin [Mass ratio] 1.1 {ratio} 0.9-2.4 [facility] Serum or plasma calcium elvia urement (mass/volume)Ordered By: Mathieu Mcintyre on 07-07-2023 Calcium [Mass/Vol] 8.6 mg/dL 8.5-10.1 [facility] Serum or plasma creatinine m easurement (mass/volume)Ordered By: Mathieu Mcintyre on 07-07-2023 Creatinine [Mass/Vol] 2.95 mg/dL 0.70-1.30 [facility] Serum or plasma ferritin pedro luis surement (mass/volume)Ordered By: Mathieu Mcintyre on 07-07-2023 Ferritin [Mass/Vol] 446 ng/mL 26-388 [facility] Serum or plasma iron saturat ion measurement (mass fraction)Ordered By: Mathieu Mcintyre on 07-07-2023 Iron saturation [Mass fraction] 21.3 % 15.0-55.0 [facility] Serum or plasma urea nitroge n measurement (mass/volume)Ordered By: Mathieu Mcintyre on 07-07-2023 Urea nitrogen [Mass/Vol] 58 mg/dL 7-18 [facility] Thin prep Papanicolaou smear with manual screeningOrdered By: Mathieu Mcintyre on 07-07-2023 Thin prep Papanicolaou smear with manual screening 13 U/L 15-37 [facility] Thin prep Papanicolaou smear with manual screening 6 5-15 [facility] Absolute lymphocyte countOrd ered By: Priya Sheehan on 06-25-2023 Lymphocytes Auto (Unsp spec) [#/Vol] 0.46 10*3/uL 0.83-4.51 [facility] Basophil percentageOrdered B y: Priya Sheehan on 06-25-2023 Basophil percentage 63 mg/dL 74-106 [facility] Basophil percentage 143 mmol/L 136-145 [facility] Basophil percentage 5.1 mmol/L 3.5-5.1 [facility] Basophil percentage 111 mmol/L 98-107 [facility] Basophils (Bld) [#/Vol] 3.3 10*3/uL 4.4-11.0 [facility] Basophils (Bld) [#/Vol] 2.3 10*3/uL 2.0-7.7 [facility] Basophils/100 WBC (Bld) 69.7 % 47-70 [facility] Basophils/100 WBC (Bld) 5.8 % 0-5 [facility] Basophils/100 WBC (Bld) 0.9 % 0-1 [facility] [facility] Blood erythrocytes count (nu mber/volume)Ordered By: Priya Sheehan on 06-25-2023 RBC (Bld) [#/Vol] 2.13 10*6/uL 4.6-6.2 [facility] Blood hemoglobin measurement (mass/volume)Ordered By: Priya Sheehan on 06-25-2023 Hemoglobin (Bld) [Mass/Vol] 7.4 g/dL 13.0-16.5 [facility] Blood lymphocytes/100 leukoc ytesOrdered By: Priya Sheehan on 06-25-2023 Lymphocytes/100 WBC (Bld) 14.1 % 19-41 [facility] Blood manual differential co mment interpretation (narrative result)Ordered By: Priya Sheehan on 06-25-2023 Manual differential comment Eric (Bld) [Interp] SCANNED [facility] Blood monocytes/100 leukocyt esOrdered By: Priya Sheehan on 06-25-2023 Monocytes/100 WBC (Bld) 9.2 % 0-10 [facility] Blood platelet adequacy dete ction by light microscopyOrdered By: Priya Sheehan on 06-25-2023 Platelets LM Ql (Bld) SLT DEC ADEQ [facility] Blood platelet mean volumeOr dered By: Priya Sheehan on 06-25-2023 Platelet mean volume (Bld) [Entitic vol] 10.5 fL 6.2-12.0 [facility] Determination of erythrocyte mean corpuscular volume (MCV)Ordered By: Priya Sheehan on 06-25-2023 MCV (RBC) [Entitic vol] 112.2 fL 80-94 [facility] Glucose Glucometer (BldC) [M ass/Vol]Ordered By: Priya Sheehan on 06-25-2023 Glucose [Mass/Vol] 82 mg/dL 74-106 [facility] Hematocrit Auto (Bld) [Volum e fraction]Ordered By: Priya Sheehan on 06-25-2023 Hematocrit (Bld) [Volume fraction] 23.9 % 40-54 [facility] MCHC Auto (RBC) [Mass/Vol]Or dered By: Priya Sheehan on 06-25-2023 MCHC (RBC) [Mass/Vol] 31.0 g/dL 32-36 [facility] No Panel InformationOrdered By: Priya Sheehan on 06-25-2023 34.7 pg 27.0-32.0 [facility] 17.2 % 11.6-14.6 [facility] 71.7 fl 35.1-43.9 [facility] 0.300 % 0.0-0.9 [facility] 0 % 0-5 [facility] RARE [facility] 28 mL/min >60 [facility] 33 mL/min >60 [facility] 24.82 ml/min [facility] 18.7 RATIO 10-20 [facility] 27.0 mmol/L 21.0-32.0 [facility] Platelets bldOrdered By: Annalise Sheehan on 06-25-2023 Platelets (Bld) [#/Vol] 83 10*3/uL 150-450 [facility] Review by pathologistOrdered By: Priya Sheehan on 06-25-2023 Pathologist review Eric (Unsp spec) [Interp] October [facility] Pathologist review Eric (Unsp spec) [Interp] Reviewed [facility] Serum or plasma calcium elvia urement (mass/volume)Ordered By: Priya Sheehan on 06-25-2023 Calcium [Mass/Vol] 8.2 mg/dL 8.5-10.1 [facility] Serum or plasma creatinine m easurement (mass/volume)Ordered By: Priya Sheehan on 06-25-2023 Creatinine [Mass/Vol] 2.41 mg/dL 0.70-1.30 [facility] Serum or plasma urea nitroge n measurement (mass/volume)Ordered By: Priya Sheehan on 06-25-2023 Urea nitrogen [Mass/Vol] 45 mg/dL 7-18 [facility] Thin prep Papanicolaou smear with manual screeningOrdered By: Priya Sheehan on 06-25-2023 Thin prep Papanicolaou smear with manual screening 5 5-15 [facility] Lower GI hemoglobin IA Ql (S tl)Ordered By: Priya Sheehan on 06-24-2023 Stool gastrointestinal hemoglobin detection by immunologic method Positive [facility] Stool gastrointestinal hemoglobin detection by immunologic method Positive [facility] Macrocytes detectionOrdered By: Pirya Sheehan on 12-26-2023 Macrocytes Ql (Bld) 1+ [facility] No Panel InformationOrdered By: Irving Horowitz on 06-24-2023 370 pg/mL 211-911 [facility] See comment [facility] Not Reportable [facility] Serum IgA measurement (units /volume)Ordered By: Irving Horowitz on 06-24-2023 IgA Qn (S) Not Reportable [facility] Serum or plasma folate measu rement (mass/volume)Ordered By: Irving Horowitz on 06-24-2023 Folate [Mass/Vol] 21.00 ng/mL 3.1-55.4 [facility] Serum parietal cell antibody assay (units/volume)Ordered By: Irving Horowitz on 06-24-2023 Parietal cell Ab Qn (S) See comment [facility] Serum tissue transglutaminas e IgA antibody assay (units/volume)Ordered By: Irving Horowitz on 06-24-2023 tTG IgA Qn (S) Not Reportable [facility] Thin prep Papanicolaou smear with manual screeningOrdered By: Priya Sheehan on 06-24-2023 Thin prep Papanicolaou smear with manual screening 1+ [facility] Basophil percentageOrdered B y: Oniel Moulton on 06-23-2023 Basophil percentage 0 SEEN /hpf 0-5 [facility] Bilirubin Test strip Ql (U)O rdered By: Oniel Moulton on 06-23-2023 Bilirubin Ql (U) Negative Negative [facility] Ketones Test strip Ql (U)Ord ered By: Oniel Moulton on 06-23-2023 Ketones Ql (U) Negative Negative [facility] Mucus LM Ql (Urine sed)Order ed By: Oniel Moulton on 06-23-2023 Mucus Ql (Urine sed) 0 SEEN /hpf [facility] Nitrite Test strip Ql (U)Ord ered By: Oniel Moulton on 06-23-2023 Nitrite Ql (U) Negative Negative [facility] Protein Test strip Ql (U)Ord ered By: Oniel Moulton on 06-23-2023 Protein Ql (U) Negative Negative [facility] Squamous epithelial cells de tection in urine sediment by light microscopyOrdered By: Oniel Moulton on 06-23-2023 Epithelial cells.squamous LM Ql (Urine sed) 0 SEEN /hpf 0-5 [facility] Urine blood detectionOrdered By: Oniel Moulton on 06-23-2023 RBC Ql (U) Negative Negative [facility] RBC Ql (U) 0 SEEN /hpf 0-5 [facility] Urine clarityOrdered By: Al Moulton on 06-23-2023 Clarity (U) Clear Clear [facility] Urine color determinationOrd ered By: Oniel Moulton on 06-23-2023 Color (U) Yellow Yellow [facility] Urine glucose detectionOrder ed By: Oniel Moulton on 06-23-2023 Glucose Ql (U) Normal mg/dl Normal [facility] Urine leukocyte esterase det ection by dipstickOrdered By: Oniel Moulton on 06-23-2023 Leukocyte esterase Test strip Ql (U) Negative Negative [facility] Urine pHOrdered By: Oniel Moulton on 06-23-2023 pH (U) 7.0 [pH] 5.0 - 8.0 [facility] Urine sediment bacteria coun t by microscopy (number/high power field)Ordered By: Oniel Moulton on 06-23-2023 Bacteria LM.HPF (Urine sed) [#/Area] 0 /[HPF] None Seen [facility] Urine specific gravity measu rementOrdered By: Oniel Moulton on 06-23-2023 Specific gravity (U) [Rel density] 1.010 1.002-1.03 0 [facility] Urobilinogen Auto test strip Ql (U)Ordered By: Oniel Moulton on 06-23-2023 Urobilinogen Ql (U) Normal mg/dl Normal [facility] Iron measurement (mass/mass) Ordered By: Priya Sheehan on 06-22-2023 Iron (Unsp spec) [Mass/Mass] 34 ug/dL 65-175 [facility] No Panel InformationOrdered By: Priya Sheehan on 06-22-2023 204 ug/dL 250-450 [facility] Serum or plasma ferritin pedro luis surement (mass/volume)Ordered By: Priya Sheehan on 06-22-2023 Ferritin [Mass/Vol] 399 ng/mL 26-388 [facility] Serum or plasma iron saturat ion measurement (mass fraction)Ordered By: Priya Sheehan on 06-22-2023 Iron saturation [Mass fraction] 16.7 % 15.0-55.0 [facility] Assessment of wrist artery p atency prior to arterial punctureOrdered By: Priya Sheehan on 06-21-2023 Arterial patency Wrist artery --pre arterial puncture Positive [facility] Base excessOrdered By: Priya Sheehan on 06-21-2023 Base excess Calc (BldV) [Moles/Vol] -2 mmol/L -2-2 [facility] Basophil percentageOrdered B y: Priya Sheehan on 06-21-2023 Basophil percentage 23.2 mmol/L 22-26 [facility] Basophils/100 WBC (Bld) 86 % 95-99 [facility] Basophil percentageOrdered B y: Jackie Lucerojohn on 06-21-2023 Basophil percentage 4.0 mg/dL 2.5-4.9 [facility] CO2 (BldA) [Partial pressure ]Ordered By: Priya Sheehan on 06-21-2023 CO2 (Bld) [Partial pressure] 39.1 mm[Hg] 35-45 [facility] Hemoglobin in reticulocytes (mass per reticulocyte)Ordered By: Oniel Moulton on 06-21-2023 Hemoglobin (Reticulocytes) [Entitic mass] 29.7 pg 30-35 [facility] No Panel InformationOrdered By: Priya Sheehan on 06-21-2023 ART [facility] L Radial [facility] Not entered [facility] HFNC [facility] 8.0 [facility] 24 mmol/L [facility] 976.4 pg/mL 0-100 [facility] No Panel InformationOrdered By: Oniel Moulton on 06-21-2023 2.81 % 0.5-1.5 [facility] 11.10 % 3.00-15.90 [facility] 3.7 % 1.0-7.9 [facility] 1.61 uIU/mL 0.358-3.74 [facility] 1.17 ng/dL 0.76-1.46 [facility] Ovalocyte detectionOrdered B y: Oniel Moulton on 06-21-2023 Ovalocytes LM Ql (Bld) RARE [facility] Oxygen (BldA) [Partial press ure]Ordered By: Priya Sissy on 06-21-2023 Oxygen (Bld) [Partial pressure] 52 mmHG 75-100 [facility] Serum or plasma albumin elvia urement (mass/volume)Ordered By: Jackie Myrick on 06-21-2023 Albumin [Mass/Vol] 2.7 g/dL 3.2-5.0 [facility] pH measurementOrdered By: Linda Sheehan on 06-21-2023 pH (Unsp spec) 7.38 [pH] 7.35-7.45 [facility] Absolute lymphocyte countOrd ered By: Jakob Nowak on 06-20-2023 Lymphocytes Auto (Unsp spec) [#/Vol] 0.49 10*3/uL 0.83-4.51 [facility] Basophil percentageOrdered B y: Jakob Nowak on 06-20-2023 Basophil percentage 113 mg/dL 74-106 [facility] Basophil percentage 143 mmol/L 136-145 [facility] Basophil percentage 6.0 mmol/L 3.5-5.1 [facility] Basophil percentage 119 mmol/L 98-107 [facility] Basophils (Bld) [#/Vol] 3.7 10*3/uL 4.4-11.0 [facility] Basophils (Bld) [#/Vol] 2.7 10*3/uL 2.0-7.7 [facility] Basophils/100 WBC (Bld) 73.4 % 47-70 [facility] Basophils/100 WBC (Bld) 1.6 % 0-5 [facility] Basophils/100 WBC (Bld) 0.5 % 0-1 [facility] Basophil percentageOrdered B y: Oniel Moulton on 06-20-2023 Basophil percentage 5.5 g/dL 6.4-8.2 [facility] Basophil percentage 0.40 mg/dL 0.20-1.00 [facility] Blood erythrocytes count (nu mber/volume)Ordered By: Jakob Nowak on 06-20-2023 RBC (Bld) [#/Vol] 2.24 10*6/uL 4.6-6.2 [facility] Blood hemoglobin measurement (mass/volume)Ordered By: Jakob Nowak on 06-20-2023 Hemoglobin (Bld) [Mass/Vol] 7.8 g/dL 13.0-16.5 [facility] Blood lymphocytes/100 leukoc ytesOrdered By: Jakob Nowak on 06-20-2023 Lymphocytes/100 WBC (Bld) 13.3 % 19-41 [facility] Blood manual differential co mment interpretation (narrative result)Ordered By: Jakob Nowak on 06-20-2023 Manual differential comment Eric (Bld) [Interp] SCANNED [facility] Blood monocytes/100 leukocyt esOrdered By: Jakob Nowak on 06-20-2023 Monocytes/100 WBC (Bld) 10.9 % 0-10 [facility] Blood platelet adequacy dete ction by light microscopyOrdered By: Jakob Nowak on 06-20-2023 Platelets LM Ql (Bld) MOD DEC ADEQ [facility] Blood platelet mean volumeOr dered By: Jakob Nowak on 06-20-2023 Platelet mean volume (Bld) [Entitic vol] 10.7 fL 6.2-12.0 [facility] Determination of erythrocyte mean corpuscular volume (MCV)Ordered By: Jakob Nowak on 06-20-2023 MCV (RBC) [Entitic vol] 112.9 fL 80-94 [facility] Direct bilirubinOrdered By: Oniel Moulton on 06-20-2023 Bilirubin.direct [Mass/Vol] 0.14 mg/dL 0.00-0.30 [facility] Glucose Glucometer (BldC) [M ass/Vol]Ordered By: Jakob Nowak on 06-20-2023 Glucose [Mass/Vol] 135 mg/dL 74-106 [facility] Hematocrit Auto (Bld) [Volum e fraction]Ordered By: Jakob Nowak on 06-20-2023 Hematocrit (Bld) [Volume fraction] 25.3 % 40-54 [facility] MCHC Auto (RBC) [Mass/Vol]Or dered By: Jakob Nowak on 06-20-2023 MCHC (RBC) [Mass/Vol] 30.8 g/dL 32-36 [facility] No Panel InformationOrdered By: Jackie Myrick on 06-20-2023 53 U/L 39-308 [facility] No Panel InformationOrdered By: Jakob Nowak on 06-20-2023 25 mL/min >60 [facility] 31 mL/min >60 [facility] 23.10 ml/min [facility] 19.7 RATIO 10-20 [facility] 71 pg/mL 3.0-78.0 [facility] 22.0 mmol/L 21.0-32.0 [facility] 34.8 pg 27.0-32.0 [facility] 19.5 % 11.6-14.6 [facility] 81.2 fl 35.1-43.9 [facility] 0.300 % 0.0-0.9 [facility] 0 % 0-5 [facility] 2+ [facility] No Panel InformationOrdered By: Oniel Moulton on 06-20-2023 2.5 g/dL 2.2-4.2 [facility] 108 U/L 45-117 [facility] 14 U/L 16-61 [facility] 2.0 mg/dL 1.6-2.6 [facility] Platelets bldOrdered By: Catalina Nowak on 06-20-2023 Platelets (Bld) [#/Vol] 97 10*3/uL 150-450 [facility] Review by pathologistOrdered By: Jakob Nowak on 06-20-2023 Pathologist review Eric (Unsp spec) [Interp] October [facility] Serum or plasma calcium elvia urement (mass/volume)Ordered By: Jakob Nowak on 06-20-2023 Calcium [Mass/Vol] 9.3 mg/dL 8.5-10.1 [facility] Serum or plasma creatinine m easurement (mass/volume)Ordered By: Jakob Nowak on 06-20-2023 Creatinine [Mass/Vol] 2.59 mg/dL 0.70-1.30 [facility] Serum or plasma urea nitroge n measurement (mass/volume)Ordered By: Jakob Nowak on 06-20-2023 Urea nitrogen [Mass/Vol] 51 mg/dL 7-18 [facility] Thin prep Papanicolaou smear with manual screeningOrdered By: Jakob Nowak on 06-20-2023 Thin prep Papanicolaou smear with manual screening 2 5-15 [facility] Thin prep Papanicolaou smear with manual screeningOrdered By: Oniel Moulton on 06-20-2023 Thin prep Papanicolaou smear with manual screening 37 U/L 15-37 [facility] Anaerobic cultureOrdered By: Warren Sampson on 06-04-2023 Bacteria identified Anaer cx Nom (Unsp spec) No anaerobic bacteria isolated. [facility] Bacteria identified Anaer cx Nom (Unsp spec) No anaerobic bacteria isolated. [facility] Bacteria identified Cx Nom ( Wound)Ordered By: Warren Sampson on 06-04-2023 Routine wound culture Klebsiella pneumon iae sp pneum [facility] Routine wound culture Meth. resistant St aph. aureus [facility] Routine wound culture Corynebacterium striatum [facility] Routine wound culture Pseudomonas aeruginosa [facility] Routine wound culture Klebsiella pneumon iae sp pneum [facility] Routine wound culture Meth. resistant St aph. aureus [facility] Routine wound culture Corynebacterium striatum [facility] Routine wound culture Pseudomonas aeruginosa [facility] Gram stain for investigation of transfusion reactionOrdered By: Warren Sampson on 06-04-2023 Microscopic observation Gram stain Nom (Unsp spec) [facility] Microscopic observation Gram stain Nom (Unsp spec) [facility] Absolute lymphocyte countOrd ered By: Warren Sampson on 04-16-2023 Lymphocytes Auto (Unsp spec) [#/Vol] 0.76 10*3/uL 0.83-4.51 [facility] Basophil percentageOrdered B y: Warren Sampson on 04-16-2023 Basophil percentage 110 mg/dL 74-106 [facility] Basophil percentage 142 mmol/L 136-145 [facility] Basophil percentage 5.1 mmol/L 3.5-5.1 [facility] Basophil percentage 114 mmol/L 98-107 [facility] Basophils (Bld) [#/Vol] 4.6 10*3/uL 4.4-11.0 [facility] Basophils (Bld) [#/Vol] 2.9 10*3/uL 2.0-7.7 [facility] Basophils/100 WBC (Bld) 64.1 % 47-70 [facility] Basophils/100 WBC (Bld) 6.1 % 0-5 [facility] Basophils/100 WBC (Bld) 1.1 % 0-1 [facility] Chloride [Moles/Vol] 114 mmol/L 98-107 [facility] Eosinophils/100 WBC (Bld) 6.1 % 0-5 [facility] Glucose [Mass/Vol] 110 mg/dL 74-106 [facility] Comment on above: Fasting Glucose resu lt from 100 to 125 mg/dL suggests IMPAIRED HOMEOSTASIS per A.D.A. criteria. Neutrophils (Bld) [#/Vol] 2.9 10*3/uL 2.0-7.7 [facility] Neutrophils/100 WBC (Bld) 64.1 % 47-70 [facility] Potassium [Moles/Vol] 5.1 mmol/L 3.5-5.1 [facility] Sodium [Moles/Vol] 142 mmol/L 136-145 [facility] WBC (Bld) [#/Vol] 4.6 10*3/uL 4.4-11.0 [facility] Blood erythrocytes count (nu mber/volume)Ordered By: Warren Sampson on 04-16-2023 RBC (Bld) [#/Vol] 3.14 10*6/uL 4.6-6.2 [facility] Blood hemoglobin measurement (mass/volume)Ordered By: Warren Sampson on 04-16-2023 Hemoglobin (Bld) [Mass/Vol] 10.4 g/dL 13.0-16.5 [facility] Blood lymphocytes/100 leukoc ytesOrdered By: Warren Sampson on 04-16-2023 Lymphocytes/100 WBC (Bld) 16.7 % 19-41 [facility] Blood manual differential co mment interpretation (narrative result)Ordered By: Warren Sampson on 04-16-2023 Manual differential comment Eric (Bld) [Interp] SCANNED [facility] Comment on above: 1+ [facility] Blood monocytes/100 leukocyt esOrdered By: Warren Sampson on 04-16-2023 Monocytes/100 WBC (Bld) 11.8 % 0-10 [facility] Blood platelet mean volumeOr dered By: Warren Sampson on 04-16-2023 Platelet mean volume (Bld) [Entitic vol] 10.5 fL 6.2-12.0 [facility] Determination of erythrocyte mean corpuscular volume (MCV)Ordered By: Warren Sampson on 04-16-2023 MCV (RBC) [Entitic vol] 106.4 fL 80-94 [facility] Erythrocyte sedimentation ra teOrdered By: Warren Sampson on 04-16-2023 ESR (Bld) [Velocity] 6 mm/h 0-20 [facility] Hematocrit Auto (Bld) [Volum e fraction]Ordered By: Warren Sampson on 04-16-2023 Hematocrit (Bld) [Volume fraction] 33.4 % 40-54 [facility] Laboratory - Chemistry and C hemistry - challengeOrdered By: Warren Sampson on 04-16-2023 CO2 [Moles/Vol] 22.0 mmol/L 21.0-32.0 [facility] Urea nitrogen/Creatinine [Mass ratio] 20.9 mg/mg 10-20 [facility] Laboratory - Hematology and Cell countsOrdered By: Warren Sampson on 04-16-2023 Erythrocyte distribution width (RBC) [Entitic vol] 66.9 fL 35.1-43.9 [facility] Erythrocyte distribution width (RBC) [Ratio] 17.0 % 11.6-14.6 [facility] Immature granulocytes/100 WBC (Bld) 0.200 % 0.0-0.9 [facility] Comment on above: IG% - Immature Granu locytes (promyelocytes, myelocytes and metamyelocytes) > 1% indicates that a LEFT SHIFT is Present. MCH (RBC) [Entitic mass] 33.1 pg 27.0-32.0 [facility] Nucleated RBC/100 WBC (Bld) [Ratio] 0 % 0-5 [facility] MCHC Auto (RBC) [Mass/Vol]Or dered By: Warren Sampson on 04-16-2023 MCHC (RBC) [Mass/Vol] 31.1 g/dL 32-36 [facility] No Panel InformationOrdered By: Warren Sampson on 04-16-2023 Estimated GFR (MDRD) Amer 28 mL/min >60 [facility] Comment on above: GFR Calc Estimated GFR (MDRD) Non-Af Amer 23 mL/min >60 [facility] Comment on above: Non- GFR Calc 33.1 pg 27.0-32.0 [facility] 17.0 % 11.6-14.6 [facility] 66.9 fl 35.1-43.9 [facility] 0.200 % 0.0-0.9 [facility] 0 % 0-5 [facility] 23 mL/min >60 [facility] 28 mL/min >60 [facility] 20.9 RATIO 10-20 [facility] 22.0 mmol/L 21.0-32.0 [facility] Platelets bldOrdered By: Miguel Sampson on 04-16-2023 Platelets (Bld) [#/Vol] 130 10*3/uL 150-450 [facility] Serum or plasma C reactive p rotein measurement (mass/volume)Ordered By: Warren Sampson on 04-16-2023 CRP [Mass/Vol] 18.50 mg/L 0.0-3.0 [facility] Comment on above: C-Reactive Protein ( CRP) provides useful information for thediagnosis, therapy and monitoring of inflammatory processesand associated diseases. For the evaluation of Relative Riskfor Cardiovascular Disease, a High Sensitivity CRP (HSCRP)should be ordered. Serum or plasma calcium elvia urement (mass/volume)Ordered By: Warren Sampson on 04-16-2023 Calcium [Mass/Vol] 9.2 mg/dL 8.5-10.1 [facility] Serum or plasma creatinine m easurement (mass/volume)Ordered By: Warren Sampson on 04-16-2023 Creatinine [Mass/Vol] 2.82 mg/dL 0.70-1.30 [facility] Comment on above: The validity of the calculated GFR & GFRAA in patients over 70 years has not been determined. Clinical correlation is essential. Serum or plasma urea nitroge n measurement (mass/volume)Ordered By: Warren Sampson on 04-16-2023 Urea nitrogen [Mass/Vol] 59 mg/dL - [facility] Thin prep Papanicolaou smear with manual screeningOrdered By: Warren Sampson on 04-16-2023 Thin prep Papanicolaou smear with manual screening 6 5-15 [facility] Whole blood hemoglobin A1c/t otal hemoglobin ratio (mass fraction)Ordered By: Warren Sampson on 04-16-2023 HbA1c (Bld) [Mass fraction] 5.0 % 3.8-5.6 [facility] Comment on above: Normal < 5.7 % Predi abetic 5.7 - 6.4 % Diabetic >or= 6.5 % Please note range changes. Absolute lymphocyte countOrd ered By: Paco Norman on 03-26-2023 Lymphocytes Auto (Unsp spec) [#/Vol] 0.89 10*3/uL 0.83-4.51 [facility] Basophil percentageOrdered B y: Paco Norman on 03-26-2023 Basophil percentage 100 mg/dL 74-106 [facility] Basophil percentage 5.6 g/dL 6.4-8.2 [facility] Basophil percentage 0.50 mg/dL 0.20-1.00 [facility] Basophil percentage 142 mmol/L 136-145 [facility] Basophil percentage 4.3 mmol/L 3.5-5.1 [facility] Basophil percentage 112 mmol/L 98-107 [facility] Basophil percentage 152 U/L 87-241 [facility] Basophils (Bld) [#/Vol] 6.4 10*3/uL 4.4-11.0 [facility] Basophils (Bld) [#/Vol] 4.7 10*3/uL 2.0-7.7 [facility] Basophils/100 WBC (Bld) 73.6 % 47-70 [facility] Basophils/100 WBC (Bld) 3.4 % 0-5 [facility] Basophils/100 WBC (Bld) 0.5 % 0-1 [facility] Bilirubin [Mass/Vol] 0.50 mg/dL 0.20-1.00 [facility] Comment on above: For patients on eltr ombopag therapy, use of Dimension Warden TBIL is not recommended. Chloride [Moles/Vol] 112 mmol/L 98-107 [facility] Eosinophils/100 WBC (Bld) 3.4 % 0-5 [facility] Glucose [Mass/Vol] 100 mg/dL 74-106 [facility] Comment on above: Fasting Glucose resu lt from 100 to 125 mg/dL suggests IMPAIRED HOMEOSTASIS per A.D.A. criteria. LDH [Catalytic activity/Vol] 152 U/L 87-241 [facility] Neutrophils (Bld) [#/Vol] 4.7 10*3/uL 2.0-7.7 [facility] Neutrophils/100 WBC (Bld) 73.6 % 47-70 [facility] Potassium [Moles/Vol] 4.3 mmol/L 3.5-5.1 [facility] Protein [Mass/Vol] 5.6 g/dL 6.4-8.2 [facility] Sodium [Moles/Vol] 142 mmol/L 136-145 [facility] WBC (Bld) [#/Vol] 6.4 10*3/uL 4.4-11.0 [facility] Blood erythrocytes count (nu mber/volume)Ordered By: Paco Norman on 03-26-2023 RBC (Bld) [#/Vol] 2.60 10*6/uL 4.6-6.2 [facility] Blood hemoglobin measurement (mass/volume)Ordered By: Paco Norman on 03-26-2023 Hemoglobin (Bld) [Mass/Vol] 8.7 g/dL 13.0-16.5 [facility] Blood lymphocytes/100 leukoc ytesOrdered By: Paco Norman on 03-26-2023 Lymphocytes/100 WBC (Bld) 13.9 % 19-41 [facility] Blood monocytes/100 leukocyt esOrdered By: Paco Norman on 03-26-2023 Monocytes/100 WBC (Bld) 8.4 % 0-10 [facility] Blood platelet mean volumeOr dered By: Paco Norman on 03-26-2023 Platelet mean volume (Bld) [Entitic vol] 10.3 fL 6.2-12.0 [facility] Determination of erythrocyte mean corpuscular volume (MCV)Ordered By: Paco Norman on 03-26-2023 MCV (RBC) [Entitic vol] 105.4 fL 80-94 [facility] Direct bilirubinOrdered By: Paco Norman on 03-26-2023 Bilirubin.direct [Mass/Vol] 0.18 mg/dL 0.00-0.30 [facility] Hematocrit Auto (Bld) [Volum e fraction]Ordered By: Riazcamerondel Norman on 03-26-2023 Hematocrit (Bld) [Volume fraction] 27.4 % 40-54 [facility] Iron measurement (mass/mass) Ordered By: monse Norman on 03-26-2023 Iron (Unsp spec) [Mass/Mass] 15 ug/dL 65-175 [facility] Laboratory - Chemistry and C hemistry - challengeOrdered By: Riazcamerondel Norman on 03-26-2023 ALP [Catalytic activity/Vol] 89 U/L 45-117 [facility] ALT [Catalytic activity/Vol] 14 U/L 16-61 [facility] CO2 [Moles/Vol] 27.0 mmol/L 21.0-32.0 [facility] Cobalamin (Vitamin B12) [Mass/Vol] 501 pg/mL 211-911 [facility] Globulin (S) [Mass/Vol] 2.7 g/dL 2.2-4.2 [facility] Urea nitrogen/Creatinine [Mass ratio] 25.2 mg/mg 10-20 [facility] Laboratory - Hematology and Cell countsOrdered By: Riazcamerondel Norman on 03-26-2023 Erythrocyte distribution width (RBC) [Entitic vol] 64.1 fL 35.1-43.9 [facility] Erythrocyte distribution width (RBC) [Ratio] 16.4 % 11.6-14.6 [facility] Immature granulocytes/100 WBC (Bld) 0.200 % 0.0-0.9 [facility] Comment on above: IG% - Immature Granu locytes (promyelocytes, myelocytes and metamyelocytes) > 1% indicates that a LEFT SHIFT is Present. MCH (RBC) [Entitic mass] 33.5 pg 27.0-32.0 [facility] Nucleated RBC/100 WBC (Bld) [Ratio] 0 % 0-5 [facility] MCHC Auto (RBC) [Mass/Vol]Or dered By: Paco Norman on 03-26-2023 MCHC (RBC) [Mass/Vol] 31.8 g/dL 32-36 [facility] No Panel InformationOrdered By: Paco Norman on 03-26-2023 Estimated GFR (MDRD) Amer 37 mL/min >60 [facility] Comment on above: GFR Calc Estimated GFR (MDRD) Non-Af Amer 30 mL/min >60 [facility] Comment on above: Non- GFR Calc Total Iron Binding Capacity 198 ug/dL 250-450 [facility] 33.5 pg 27.0-32.0 [facility] 16.4 % 11.6-14.6 [facility] 64.1 fl 35.1-43.9 [facility] 0.200 % 0.0-0.9 [facility] 0 % 0-5 [facility] 30 mL/min >60 [facility] 37 mL/min >60 [facility] 25.2 RATIO 10-20 [facility] 2.7 g/dL 2.2-4.2 [facility] 89 U/L 45-117 [facility] 14 U/L 16-61 [facility] 27.0 mmol/L 21.0-32.0 [facility] 501 pg/mL 211-911 [facility] 198 ug/dL 250-450 [facility] Platelets bldOrdered By: Rajendra Norman on 03-26-2023 Platelets (Bld) [#/Vol] 106 10*3/uL 150-450 [facility] Serum or plasma albumin elvia urement (mass/volume)Ordered By: Paco Norman on 03-26-2023 Albumin [Mass/Vol] 2.9 g/dL 3.2-5.0 [facility] Serum or plasma albumin/glob ulin mass ratioOrdered By: Paco Norman on 03-26-2023 Albumin/Globulin [Mass ratio] 1.1 {ratio} 0.9-2.4 [facility] Serum or plasma calcium elvia urement (mass/volume)Ordered By: Paco Norman on 03-26-2023 Calcium [Mass/Vol] 8.6 mg/dL 8.5-10.1 [facility] Serum or plasma creatinine m easurement (mass/volume)Ordered By: Paco Norman on 03-26-2023 Creatinine [Mass/Vol] 2.22 mg/dL 0.70-1.30 [facility] Comment on above: The validity of the calculated GFR & GFRAA in patients over 70 years has not been determined. Clinical correlation is essential. Serum or plasma erythropoiet in (EPO) measurement (units/volume)Ordered By: Paco Norman on 03-26-2023 Erythropoietin (EPO) Qn 17.3 mIU/mL 2.6-18.5 [facility] Comment on above: Singly el DxI 800 Immunoassay SystemValues obtained with different assay methods or kits cannotbe used interchangeably. Results cannot be interpreted asabsolute evidence of the presence or absence of malignantdisease.Performed at: [facility] [id number] Director: Amaury Raya PhD, Phone: [phone] Serum or plasma ferritin pedro luis surement (mass/volume)Ordered By: Paco Norman on 03-26-2023 Ferritin [Mass/Vol] 602 ng/mL 26-388 [facility] Serum or plasma folate measu rement (mass/volume)Ordered By: Paco Norman on 03-26-2023 Folate [Mass/Vol] 28.90 ng/mL 3.1-55.4 [facility] Serum or plasma iron saturat ion measurement (mass fraction)Ordered By: Paco Norman on 03-26-2023 Iron saturation [Mass fraction] 7.6 % 15.0-55.0 [facility] Serum or plasma urea nitroge n measurement (mass/volume)Ordered By: Paco Norman on 03-26-2023 Urea nitrogen [Mass/Vol] 56 mg/dL 7-18 [facility] Thin prep Papanicolaou smear with manual screeningOrdered By: Paco Norman on 03-26-2023 Thin prep Papanicolaou smear with manual screening 7 U/L 15-37 [facility] Thin prep Papanicolaou smear with manual screening 3 5-15 [facility] Basophil percentageOrdered B y: Paco Norman on 03-25-2023 Basophil percentage 5.4 g/dL 6.4-8.2 [facility] Basophil percentage 0.50 mg/dL 0.20-1.00 [facility] Basophil percentage 83 mg/dL <200 [facility] Basophil percentage 47 mg/dL <199 [facility] Bilirubin [Mass/Vol] 0.50 mg/dL 0.20-1.00 [facility] Comment on above: For patients on eltr ombopag therapy, use of Dimension Warden TBIL is not recommended. Cholesterol [Mass/Vol] 83 mg/dL <200 [facility] Comment on above: <200 mg/dL Desirable 200-240 mg/dL Borderline >240 mg/dL High Risk Protein [Mass/Vol] 5.4 g/dL 6.4-8.2 [facility] Triglyceride [Mass/Vol] 47 mg/dL <199 [facility] Comment on above: The drugs N-Acetylcy steine and Metamizole may falsely depress this assay.Serum Triglycerides Reference Interval Normal <150 mg/dL Borderline high 150 - 199 mg/dL High 200 - 499 mg/dL Very High > or = 500 mg/dL Direct bilirubinOrdered By: Paco Norman on 03-25-2023 Bilirubin.direct [Mass/Vol] 0.14 mg/dL 0.00-0.30 [facility] Laboratory - Chemistry and C hemistry - challengeOrdered By: Paco Norman on 03-25-2023 ALP [Catalytic activity/Vol] 90 U/L [facility] ALT [Catalytic activity/Vol] 14 U/L [facility] Globulin (S) [Mass/Vol] 2.5 g/dL 2.2-4.2 [facility] No Panel InformationOrdered By: Paco Norman on 03-25-2023 Thyroid Stimulating Hormone (TSH) 0.35 uIU/mL 0.358-3.74 [facility] 2.5 g/dL 2.2-4.2 [facility] 90 U/L [facility] 14 U/L 16-61 [facility] 0.35 uIU/mL 0.358-3.74 [facility] Serum or plasma albumin elvia urement (mass/volume)Ordered By: Paco Norman on 03-25-2023 Albumin [Mass/Vol] 2.9 g/dL 3.2-5.0 [facility] Serum or plasma cholesterol in HDL measurement (mass/volume)Ordered By: Paco Norman on 03-25-2023 Cholesterol in HDL [Mass/Vol] 52 mg/dL >40 [facility] Comment on above: The drugs N-Acetylcy steine and Metamizole may falsely depress this assay. Reference Range HDL <40 mg/dL Low HDL Cholesterol HDL >or= 60 mg/dL High HDL Cholesterol Serum or plasma cholesterol in VLDL measurement (mass/volume)Ordered By: Paco Norman on 03-25-2023 Cholesterol in VLDL [Mass/Vol] 9 mg/dL 5-40 [facility] Serum or plasma low density lipoprotein (LDL) cholesterol measurement (mass/volume)Ordered By: Paco Norman on 03-25-2023 Cholesterol in LDL [Mass/Vol] 22 mg/dL 0-130 [facility] Thin prep Papanicolaou smear with manual screeningOrdered By: Paco Norman on 03-25-2023 Thin prep Papanicolaou smear with manual screening 9 U/L 15-37 [facility] Absolute lymphocyte countOrd ered By: Paco Norman on 03-19-2023 Lymphocytes Auto (Unsp spec) [#/Vol] 0.84 10*3/uL 0.83-4.51 [facility] Basophil percentageOrdered B y: Paco Norman on 03-19-2023 Basophil percentage 98 mg/dL 74-106 [facility] Basophil percentage 140 mmol/L 136-145 [facility] Basophil percentage 4.0 mmol/L 3.5-5.1 [facility] Basophil percentage 109 mmol/L 98-107 [facility] Basophils (Bld) [#/Vol] 3.8 10*3/uL 4.4-11.0 [facility] Basophils (Bld) [#/Vol] 2.2 10*3/uL 2.0-7.7 [facility] Basophils/100 WBC (Bld) 56.9 % 47-70 [facility] Basophils/100 WBC (Bld) 8.6 % 0-5 [facility] Basophils/100 WBC (Bld) 0.8 % 0-1 [facility] Chloride [Moles/Vol] 109 mmol/L 98-107 [facility] Eosinophils/100 WBC (Bld) 8.6 % 0-5 [facility] Glucose [Mass/Vol] 98 mg/dL 74-106 [facility] Neutrophils (Bld) [#/Vol] 2.2 10*3/uL 2.0-7.7 [facility] Neutrophils/100 WBC (Bld) 56.9 % 47-70 [facility] Potassium [Moles/Vol] 4.0 mmol/L 3.5-5.1 [facility] Sodium [Moles/Vol] 140 mmol/L 136-145 [facility] WBC (Bld) [#/Vol] 3.8 10*3/uL 4.4-11.0 [facility] Blood erythrocytes count (nu mber/volume)Ordered By: Paco Norman on 03-19-2023 RBC (Bld) [#/Vol] 2.78 10*6/uL 4.6-6.2 [facility] Blood hemoglobin measurement (mass/volume)Ordered By: Paco Norman on 03-19-2023 Hemoglobin (Bld) [Mass/Vol] 9.0 g/dL 13.0-16.5 [facility] Blood lymphocytes/100 leukoc ytesOrdered By: Paco Norman on 03-19-2023 Lymphocytes/100 WBC (Bld) 21.9 % 19-41 [facility] Blood monocytes/100 leukocyt esOrdered By: Paco Norman on 03-19-2023 Monocytes/100 WBC (Bld) 11.5 % 0-10 [facility] Blood platelet mean volumeOr dered By: Paco Norman on 03-19-2023 Platelet mean volume (Bld) [Entitic vol] 10.0 fL 6.2-12.0 [facility] Determination of erythrocyte mean corpuscular volume (MCV)Ordered By: Paco Norman on 03-19-2023 MCV (RBC) [Entitic vol] 106.1 fL 80-94 [facility] Hematocrit Auto (Bld) [Volum e fraction]Ordered By: Paco Norman on 03-19-2023 Hematocrit (Bld) [Volume fraction] 29.5 % 40-54 [facility] Laboratory - Chemistry and C hemistry - challengeOrdered By: pillocamerondel Norman on 03-19-2023 CO2 [Moles/Vol] 29.0 mmol/L 21.0-32.0 [facility] Urea nitrogen/Creatinine [Mass ratio] 24.3 mg/mg - [facility] Laboratory - Hematology and Cell countsOrdered By: Paco Norman on 03-19-2023 Erythrocyte distribution width (RBC) [Entitic vol] 62.4 fL 35.1-43.9 [facility] Erythrocyte distribution width (RBC) [Ratio] 15.9 % 11.6-14.6 [facility] Immature granulocytes/100 WBC (Bld) 0.300 % 0.0-0.9 [facility] Comment on above: IG% - Immature Granu locytes (promyelocytes, myelocytes and metamyelocytes) > 1% indicates that a LEFT SHIFT is Present. MCH (RBC) [Entitic mass] 32.4 pg 27.0-32.0 [facility] Nucleated RBC/100 WBC (Bld) [Ratio] 0 % 0-5 [facility] MCHC Auto (RBC) [Mass/Vol]Or dered By: Paco Norman on 03-19-2023 MCHC (RBC) [Mass/Vol] 30.5 g/dL 32-36 [facility] No Panel InformationOrdered By: Paco Norman on 03-19-2023 Estimated GFR (MDRD) Amer 35 mL/min >60 [facility] Comment on above: GFR Calc Estimated GFR (MDRD) Non-Af Amer 29 mL/min >60 [facility] Comment on above: Non- GFR Calc 32.4 pg 27.0-32.0 [facility] 15.9 % 11.6-14.6 [facility] 62.4 fl 35.1-43.9 [facility] 0.300 % 0.0-0.9 [facility] 0 % 0-5 [facility] 29 mL/min >60 [facility] 35 mL/min >60 [facility] 24.3 RATIO 10-20 [facility] 29.0 mmol/L 21.0-32.0 [facility] Platelets bldOrdered By: Rajendra di Emerson on 03-19-2023 Platelets (Bld) [#/Vol] 127 10*3/uL 150-450 [facility] Serum or plasma calcium elvia urement (mass/volume)Ordered By: Paco Norman on 03-19-2023 Calcium [Mass/Vol] 9.2 mg/dL 8.5-10.1 [facility] Serum or plasma creatinine m easurement (mass/volume)Ordered By: Paco Norman on 03-19-2023 Creatinine [Mass/Vol] 2.30 mg/dL 0.70-1.30 [facility] Comment on above: The validity of the calculated GFR & GFRAA in patients over 70 years has not been determined. Clinical correlation is essential. Serum or plasma urea nitroge n measurement (mass/volume)Ordered By: Paco Norman on 03-19-2023 Urea nitrogen [Mass/Vol] 56 mg/dL 7-18 [facility] Thin prep Papanicolaou smear with manual screeningOrdered By: Paco Norman on 03-19-2023 Thin prep Papanicolaou smear with manual screening 2 5-15 [facility] Absolute lymphocyte countOrd ered By: Riaznicholasdel Norman on 03-12-2023 Lymphocytes Auto (Unsp spec) [#/Vol] 0.98 10*3/uL 0.83-4.51 [facility] Basophil percentageOrdered B y: Paco Norman on 03-12-2023 Basophil percentage 96 mg/dL 74-106 [facility] Basophil percentage 142 mmol/L 136-145 [facility] Basophil percentage 4.4 mmol/L 3.5-5.1 [facility] Basophil percentage 111 mmol/L 98-107 [facility] Basophils (Bld) [#/Vol] 4.1 10*3/uL 4.4-11.0 [facility] Basophils (Bld) [#/Vol] 2.3 10*3/uL 2.0-7.7 [facility] Basophils/100 WBC (Bld) 55.1 % 47-70 [facility] Basophils/100 WBC (Bld) 9.5 % 0-5 [facility] Basophils/100 WBC (Bld) 0.5 % 0-1 [facility] Chloride [Moles/Vol] 111 mmol/L 98-107 [facility] Eosinophils/100 WBC (Bld) 9.5 % 0-5 [facility] Glucose [Mass/Vol] 96 mg/dL 74-106 [facility] Neutrophils (Bld) [#/Vol] 2.3 10*3/uL 2.0-7.7 [facility] Neutrophils/100 WBC (Bld) 55.1 % 47-70 [facility] Potassium [Moles/Vol] 4.4 mmol/L 3.5-5.1 [facility] Sodium [Moles/Vol] 142 mmol/L 136-145 [facility] WBC (Bld) [#/Vol] 4.1 10*3/uL 4.4-11.0 [facility] Blood erythrocytes count (nu mber/volume)Ordered By: Paco Norman on 03-12-2023 RBC (Bld) [#/Vol] 2.66 10*6/uL 4.6-6.2 [facility] Blood hemoglobin measurement (mass/volume)Ordered By: Paco Norman on 03-12-2023 Hemoglobin (Bld) [Mass/Vol] 8.6 g/dL 13.0-16.5 [facility] Blood lymphocytes/100 leukoc ytesOrdered By: Paco Norman on 03-12-2023 Lymphocytes/100 WBC (Bld) 23.8 % 19-41 [facility] Blood monocytes/100 leukocyt esOrdered By: Paco Norman on 03-12-2023 Monocytes/100 WBC (Bld) 10.9 % 0-10 [facility] Blood platelet mean volumeOr dered By: Paco Norman on 03-12-2023 Platelet mean volume (Bld) [Entitic vol] 10.3 fL 6.2-12.0 [facility] Determination of erythrocyte mean corpuscular volume (MCV)Ordered By: Paco Norman on 03-12-2023 MCV (RBC) [Entitic vol] 106.4 fL 80-94 [facility] Hematocrit Auto (Bld) [Volum e fraction]Ordered By: Paco Norman on 03-12-2023 Hematocrit (Bld) [Volume fraction] 28.3 % 40-54 [facility] Laboratory - Chemistry and C hemistry - challengeOrdered By: Paco Norman on 03-12-2023 CO2 [Moles/Vol] 27.0 mmol/L 21.0-32.0 [facility] Urea nitrogen/Creatinine [Mass ratio] 25.1 mg/mg 10-20 [facility] Laboratory - Hematology and Cell countsOrdered By: Paco Norman on 03-12-2023 Erythrocyte distribution width (RBC) [Entitic vol] 63.9 fL 35.1-43.9 [facility] Erythrocyte distribution width (RBC) [Ratio] 16.1 % 11.6-14.6 [facility] Immature granulocytes/100 WBC (Bld) 0.200 % 0.0-0.9 [facility] Comment on above: IG% - Immature Granu locytes (promyelocytes, myelocytes and metamyelocytes) > 1% indicates that a LEFT SHIFT is Present. MCH (RBC) [Entitic mass] 32.3 pg 27.0-32.0 [facility] Nucleated RBC/100 WBC (Bld) [Ratio] 0 % 0-5 [facility] MCHC Auto (RBC) [Mass/Vol]Or dered By: Paco Norman on 03-12-2023 MCHC (RBC) [Mass/Vol] 30.4 g/dL 32-36 [facility] No Panel InformationOrdered By: Paco Norman on 03-12-2023 Estimated GFR (MDRD) Amer 39 mL/min >60 [facility] Comment on above: GFR Calc Estimated GFR (MDRD) Non-Af Amer 32 mL/min >60 [facility] Comment on above: Non- GFR Calc 32.3 pg 27.0-32.0 [facility] 16.1 % 11.6-14.6 [facility] 63.9 fl 35.1-43.9 [facility] 0.200 % 0.0-0.9 [facility] 0 % 0-5 [facility] 32 mL/min >60 [facility] 39 mL/min >60 [facility] 25.1 RATIO 10-20 [facility] 27.0 mmol/L 21.0-32.0 [facility] Platelets bldOrdered By: Rajendra Norman on 03-12-2023 Platelets (Bld) [#/Vol] 126 10*3/uL 150-450 [facility] Serum or plasma calcium elvia urement (mass/volume)Ordered By: Paco Norman on 03-12-2023 Calcium [Mass/Vol] 8.9 mg/dL 8.5-10.1 [facility] Serum or plasma creatinine m easurement (mass/volume)Ordered By: Paco Norman on 03-12-2023 Creatinine [Mass/Vol] 2.11 mg/dL 0.70-1.30 [facility] Comment on above: The validity of the calculated GFR & GFRAA in patients over 70 years has not been determined. Clinical correlation is essential. Serum or plasma urea nitroge n measurement (mass/volume)Ordered By: Paco Norman on 03-12-2023 Urea nitrogen [Mass/Vol] 53 mg/dL 7-18 [facility] Thin prep Papanicolaou smear with manual screeningOrdered By: Paco Norman on 03-12-2023 Thin prep Papanicolaou smear with manual screening 4 5-15 [facility] Absolute lymphocyte countOrd ered By: Paco Norman on 03-05-2023 Lymphocytes Auto (Unsp spec) [#/Vol] 0.99 10*3/uL 0.83-4.51 [facility] Basophil percentageOrdered B y: Paco Norman on 03-05-2023 Basophil percentage 92 mg/dL 74-106 [facility] Basophil percentage 144 mmol/L 136-145 [facility] Basophil percentage 4.3 mmol/L 3.5-5.1 [facility] Basophil percentage 114 mmol/L 98-107 [facility] Basophils (Bld) [#/Vol] 4.2 10*3/uL 4.4-11.0 [facility] Basophils (Bld) [#/Vol] 2.4 10*3/uL 2.0-7.7 [facility] Basophils/100 WBC (Bld) 57.7 % 47-70 [facility] Basophils/100 WBC (Bld) 8.1 % 0-5 [facility] Basophils/100 WBC (Bld) 0.7 % 0-1 [facility] Chloride [Moles/Vol] 114 mmol/L 98-107 [facility] Eosinophils/100 WBC (Bld) 8.1 % 0-5 [facility] Glucose [Mass/Vol] 92 mg/dL 74-106 [facility] Neutrophils (Bld) [#/Vol] 2.4 10*3/uL 2.0-7.7 [facility] Neutrophils/100 WBC (Bld) 57.7 % 47-70 [facility] Potassium [Moles/Vol] 4.3 mmol/L 3.5-5.1 [facility] Sodium [Moles/Vol] 144 mmol/L 136-145 [facility] WBC (Bld) [#/Vol] 4.2 10*3/uL 4.4-11.0 [facility] Blood erythrocytes count (nu mber/volume)Ordered By: Paco Norman on 03-05-2023 RBC (Bld) [#/Vol] 2.70 10*6/uL 4.6-6.2 [facility] Blood hemoglobin measurement (mass/volume)Ordered By: Paco Norman on 03-05-2023 Hemoglobin (Bld) [Mass/Vol] 8.8 g/dL 13.0-16.5 [facility] Blood lymphocytes/100 leukoc ytesOrdered By: Paco Norman on 03-05-2023 Lymphocytes/100 WBC (Bld) 23.7 % 19-41 [facility] Blood monocytes/100 leukocyt esOrdered By: Paco Norman on 03-05-2023 Monocytes/100 WBC (Bld) 9.6 % 0-10 [facility] Blood platelet mean volumeOr dered By: Paco Norman on 03-05-2023 Platelet mean volume (Bld) [Entitic vol] 9.8 fL 6.2-12.0 [facility] Determination of erythrocyte mean corpuscular volume (MCV)Ordered By: Riazcamerondel Norman on 03-05-2023 MCV (RBC) [Entitic vol] 105.9 fL 80-94 [facility] Hematocrit Auto (Bld) [Volum e fraction]Ordered By: Riazcamerondel Norman on 03-05-2023 Hematocrit (Bld) [Volume fraction] 28.6 % 40-54 [facility] Laboratory - Chemistry and C hemistry - challengeOrdered By: [facility] Españasreedhar on 03-05-2023 CO2 [Moles/Vol] 28.0 mmol/L 21.0-32.0 [facility] Urea nitrogen/Creatinine [Mass ratio] 29.4 mg/mg 10-20 [facility] Laboratory - Hematology and Cell countsOrdered By: pillocamerondel Norman on 03-05-2023 Erythrocyte distribution width (RBC) [Entitic vol] 62.3 fL 35.1-43.9 [facility] Erythrocyte distribution width (RBC) [Ratio] 16.0 % 11.6-14.6 [facility] Immature granulocytes/100 WBC (Bld) 0.200 % 0.0-0.9 [facility] Comment on above: IG% - Immature Granu locytes (promyelocytes, myelocytes and metamyelocytes) > 1% indicates that a LEFT SHIFT is Present. MCH (RBC) [Entitic mass] 32.6 pg 27.0-32.0 [facility] Nucleated RBC/100 WBC (Bld) [Ratio] 0 % 0-5 [facility] MCHC Auto (RBC) [Mass/Vol]Or dered By: pillocamerondel Norman on 03-05-2023 MCHC (RBC) [Mass/Vol] 30.8 g/dL 32-36 [facility] No Panel InformationOrdered By: Paco Norman on 03-05-2023 Estimated GFR (MDRD) Amer 41 mL/min >60 [facility] Comment on above: GFR Calc Estimated GFR (MDRD) Non-Af Amer 34 mL/min >60 [facility] Comment on above: Non- GFR Calc 32.6 pg 27.0-32.0 [facility] 16.0 % 11.6-14.6 [facility] 62.3 fl 35.1-43.9 [facility] 0.200 % 0.0-0.9 [facility] 0 % 0-5 [facility] 34 mL/min >60 [facility] 41 mL/min >60 [facility] 29.4 RATIO 10-20 [facility] 28.0 mmol/L 21.0-32.0 [facility] Platelets bldOrdered By: Rajendra Norman on 03-05-2023 Platelets (Bld) [#/Vol] 131 10*3/uL 150-450 [facility] Serum or plasma calcium elvia urement (mass/volume)Ordered By: Paco Norman on 03-05-2023 Calcium [Mass/Vol] 9.0 mg/dL 8.5-10.1 [facility] Serum or plasma creatinine m easurement (mass/volume)Ordered By: Paco Norman on 03-05-2023 Creatinine [Mass/Vol] 2.01 mg/dL 0.70-1.30 [facility] Comment on above: The validity of the calculated GFR & GFRAA in patients over 70 years has not been determined. Clinical correlation is essential. Serum or plasma urea nitroge n measurement (mass/volume)Ordered By: Paco Norman on 03-05-2023 Urea nitrogen [Mass/Vol] 59 mg/dL 7-18 [facility] Thin prep Papanicolaou smear with manual screeningOrdered By: Paco Norman on 03-05-2023 Thin prep Papanicolaou smear with manual screening 2 5-15 [facility] Absolute lymphocyte countOrd ered By: Paco Norman on 02-26-2023 Lymphocytes Auto (Unsp spec) [#/Vol] 0.96 10*3/uL 0.83-4.51 [facility] Basophil percentageOrdered B y: Paco Norman on 02-26-2023 Basophil percentage 94 mg/dL 74-106 [facility] Basophil percentage 142 mmol/L 136-145 [facility] Basophil percentage 4.5 mmol/L 3.5-5.1 [facility] Basophil percentage 109 mmol/L 98-107 [facility] Basophils (Bld) [#/Vol] 4.2 10*3/uL 4.4-11.0 [facility] Basophils (Bld) [#/Vol] 2.3 10*3/uL 2.0-7.7 [facility] Basophils/100 WBC (Bld) 54.1 % 47-70 [facility] Basophils/100 WBC (Bld) 9.6 % 0-5 [facility] Basophils/100 WBC (Bld) 1.0 % 0-1 [facility] Chloride [Moles/Vol] 109 mmol/L 98-107 [facility] Eosinophils/100 WBC (Bld) 9.6 % 0-5 [facility] Glucose [Mass/Vol] 94 mg/dL 74-106 [facility] Neutrophils (Bld) [#/Vol] 2.3 10*3/uL 2.0-7.7 [facility] Neutrophils/100 WBC (Bld) 54.1 % 47-70 [facility] Potassium [Moles/Vol] 4.5 mmol/L 3.5-5.1 [facility] Sodium [Moles/Vol] 142 mmol/L 136-145 [facility] WBC (Bld) [#/Vol] 4.2 10*3/uL 4.4-11.0 [facility] Blood erythrocytes count (nu mber/volume)Ordered By: Paco Norman on 02-26-2023 RBC (Bld) [#/Vol] 2.65 10*6/uL 4.6-6.2 [facility] Blood hemoglobin measurement (mass/volume)Ordered By: Paco Norman on 02-26-2023 Hemoglobin (Bld) [Mass/Vol] 8.5 g/dL 13.0-16.5 [facility] Blood lymphocytes/100 leukoc ytesOrdered By: Paco Norman on 02-26-2023 Lymphocytes/100 WBC (Bld) 23.1 % 19-41 [facility] Blood monocytes/100 leukocyt esOrdered By: Jelenamonse Norman on 02-26-2023 Monocytes/100 WBC (Bld) 12.0 % 0-10 [facility] Blood platelet mean volumeOr dered By: Paco Norman on 02-26-2023 Platelet mean volume (Bld) [Entitic vol] 9.9 fL 6.2-12.0 [facility] Determination of erythrocyte mean corpuscular volume (MCV)Ordered By: Paco Norman on 02-26-2023 MCV (RBC) [Entitic vol] 106.0 fL 80-94 [facility] Hematocrit Auto (Bld) [Volum e fraction]Ordered By: Paco Norman on 02-26-2023 Hematocrit (Bld) [Volume fraction] 28.1 % 40-54 [facility] Laboratory - Chemistry and C hemistry - challengeOrdered By: pillocamerondel Norman on 02-26-2023 CO2 [Moles/Vol] 28.0 mmol/L 21.0-32.0 [facility] Urea nitrogen/Creatinine [Mass ratio] 25.7 mg/mg 10-20 [facility] Laboratory - Hematology and Cell countsOrdered By: Riazcamerondel Norman on 02-26-2023 Erythrocyte distribution width (RBC) [Entitic vol] 61.8 fL 35.1-43.9 [facility] Erythrocyte distribution width (RBC) [Ratio] 15.9 % 11.6-14.6 [facility] Immature granulocytes/100 WBC (Bld) 0.200 % 0.0-0.9 [facility] Comment on above: IG% - Immature Granu locytes (promyelocytes, myelocytes and metamyelocytes) > 1% indicates that a LEFT SHIFT is Present. MCH (RBC) [Entitic mass] 32.1 pg 27.0-32.0 [facility] Nucleated RBC/100 WBC (Bld) [Ratio] 0 % 0-5 [facility] Auto (RBC) [Mass/Vol]Or dered By: Paco Norman on 02-26-2023 MCHC (RBC) [Mass/Vol] 30.2 g/dL 32-36 [facility] No Panel InformationOrdered By: Paco Norman on 02-26-2023 Estimated GFR (MDRD) Amer 35 mL/min >60 [facility] Comment on above: GFR Calc Estimated GFR (MDRD) Non-Af Amer 29 mL/min >60 [facility] Comment on above: Non- GFR Calc 32.1 pg 27.0-32.0 [facility] 15.9 % 11.6-14.6 [facility] 61.8 fl 35.1-43.9 [facility] 0.200 % 0.0-0.9 [facility] 0 % 0-5 [facility] 29 mL/min >60 [facility] 35 mL/min >60 [facility] 25.7 RATIO 10-20 [facility] 28.0 mmol/L 21.0-32.0 [facility] Platelets bldOrdered By: Rajendra Norman on 02-26-2023 Platelets (Bld) [#/Vol] 137 10*3/uL 150-450 [facility] Serum or plasma calcium elvia urement (mass/volume)Ordered By: Paco Norman on 02-26-2023 Calcium [Mass/Vol] 9.2 mg/dL 8.5-10.1 [facility] Serum or plasma creatinine m easurement (mass/volume)Ordered By: Paco Norman on 02-26-2023 Creatinine [Mass/Vol] 2.30 mg/dL 0.70-1.30 [facility] Comment on above: The validity of the calculated GFR & GFRAA in patients over 70 years has not been determined. Clinical correlation is essential. Serum or plasma urea nitroge n measurement (mass/volume)Ordered By: Paco Norman on 02-26-2023 Urea nitrogen [Mass/Vol] 59 mg/dL 7-18 [facility] Thin prep Papanicolaou smear with manual screeningOrdered By: Paco Norman on 02-26-2023 Thin prep Papanicolaou smear with manual screening 5 5-15 [facility] Absolute lymphocyte countOrd ered By: Paco Norman on 02-19-2023 Lymphocytes Auto (Unsp spec) [#/Vol] 0.83 10*3/uL 0.83-4.51 [facility] Basophil percentageOrdered B y: Paco Norman on 02-19-2023 Basophil percentage 92 mg/dL 74-106 [facility] Basophil percentage 139 mmol/L 136-145 [facility] Basophil percentage 4.4 mmol/L 3.5-5.1 [facility] Basophil percentage 109 mmol/L 98-107 [facility] Basophils (Bld) [#/Vol] 3.8 10*3/uL 4.4-11.0 [facility] Basophils (Bld) [#/Vol] 2.2 10*3/uL 2.0-7.7 [facility] Basophils/100 WBC (Bld) 57.1 % 47-70 [facility] Basophils/100 WBC (Bld) 8.9 % 0-5 [facility] Basophils/100 WBC (Bld) 0.8 % 0-1 [facility] Chloride [Moles/Vol] 109 mmol/L 98-107 [facility] Eosinophils/100 WBC (Bld) 8.9 % 0-5 [facility] Glucose [Mass/Vol] 92 mg/dL 74-106 [facility] Neutrophils (Bld) [#/Vol] 2.2 10*3/uL 2.0-7.7 [facility] Neutrophils/100 WBC (Bld) 57.1 % 47-70 [facility] Potassium [Moles/Vol] 4.4 mmol/L 3.5-5.1 [facility] Sodium [Moles/Vol] 139 mmol/L 136-145 [facility] WBC (Bld) [#/Vol] 3.8 10*3/uL 4.4-11.0 [facility] Blood erythrocytes count (nu mber/volume)Ordered By: Paco Norman on 02-19-2023 RBC (Bld) [#/Vol] 2.54 10*6/uL 4.6-6.2 [facility] Blood hemoglobin measurement (mass/volume)Ordered By: Paco Norman on 02-19-2023 Hemoglobin (Bld) [Mass/Vol] 8.1 g/dL 13.0-16.5 [facility] Blood lymphocytes/100 leukoc ytesOrdered By: Paco Norman on 02-19-2023 Lymphocytes/100 WBC (Bld) 21.8 % 19-41 [facility] Blood monocytes/100 leukocyt esOrdered By: Paco Norman on 02-19-2023 Monocytes/100 WBC (Bld) 11.1 % 0-10 [facility] Blood platelet mean volumeOr dered By: Paco Norman on 02-19-2023 Platelet mean volume (Bld) [Entitic vol] 9.8 fL 6.2-12.0 [facility] Determination of erythrocyte mean corpuscular volume (MCV)Ordered By: Paco Norman on 02-19-2023 MCV (RBC) [Entitic vol] 104.3 fL 80-94 [facility] Hematocrit Auto (Bld) [Volum e fraction]Ordered By: Paco Norman on 02-19-2023 Hematocrit (Bld) [Volume fraction] 26.5 % 40-54 [facility] Laboratory - Chemistry and C hemistry - challengeOrdered By: Paco Norman on 02-19-2023 CO2 [Moles/Vol] 28.0 mmol/L 21.0-32.0 [facility] Urea nitrogen/Creatinine [Mass ratio] 25.4 mg/mg 10-20 [facility] Laboratory - Hematology and Cell countsOrdered By: Paco Norman on 02-19-2023 Erythrocyte distribution width (RBC) [Entitic vol] 61.2 fL 35.1-43.9 [facility] Erythrocyte distribution width (RBC) [Ratio] 16.0 % 11.6-14.6 [facility] Immature granulocytes/100 WBC (Bld) 0.300 % 0.0-0.9 [facility] Comment on above: IG% - Immature Granu locytes (promyelocytes, myelocytes and metamyelocytes) > 1% indicates that a LEFT SHIFT is Present. MCH (RBC) [Entitic mass] 31.9 pg 27.0-32.0 [facility] Nucleated RBC/100 WBC (Bld) [Ratio] 0 % 0-5 [facility] MCHC Auto (RBC) [Mass/Vol]Or dered By: Paco Norman on 02-19-2023 MCHC (RBC) [Mass/Vol] 30.6 g/dL 32-36 [facility] No Panel InformationOrdered By: Paco Norman on 02-19-2023 Estimated GFR (MDRD) Amer 40 mL/min >60 [facility] Comment on above: GFR Calc Estimated GFR (MDRD) Non-Af Amer 33 mL/min >60 [facility] Comment on above: Non- GFR Calc 31.9 pg 27.0-32.0 [facility] 16.0 % 11.6-14.6 [facility] 61.2 fl 35.1-43.9 [facility] 0.300 % 0.0-0.9 [facility] 0 % 0-5 [facility] 33 mL/min >60 [facility] 40 mL/min >60 [facility] 25.4 RATIO 10-20 [facility] 28.0 mmol/L 21.0-32.0 [facility] Platelets bldOrdered By: Rajendra Norman on 02-19-2023 Platelets (Bld) [#/Vol] 125 10*3/uL 150-450 [facility] Serum or plasma calcium elvia urement (mass/volume)Ordered By: Paco Norman on 02-19-2023 Calcium [Mass/Vol] 8.8 mg/dL 8.5-10.1 [facility] Serum or plasma creatinine m easurement (mass/volume)Ordered By: Paco Norman on 02-19-2023 Creatinine [Mass/Vol] 2.05 mg/dL 0.70-1.30 [facility] Comment on above: The validity of the calculated GFR & GFRAA in patients over 70 years has not been determined. Clinical correlation is essential. Serum or plasma urea nitroge n measurement (mass/volume)Ordered By: Paco Norman on 02-19-2023 Urea nitrogen [Mass/Vol] 52 mg/dL 7-18 [facility] Thin prep Papanicolaou smear with manual screeningOrdered By: Paco Norman on 02-19-2023 Thin prep Papanicolaou smear with manual screening 2 5-15 [facility] Absolute lymphocyte countOrd ered By: Paco Norman on 02-12-2023 Lymphocytes Auto (Unsp spec) [#/Vol] 0.87 10*3/uL 0.83-4.51 [facility] Basophil percentageOrdered B y: Paco Norman on 02-12-2023 Basophil percentage 93 mg/dL 74-106 [facility] Basophil percentage 141 mmol/L 136-145 [facility] Basophil percentage 4.4 mmol/L 3.5-5.1 [facility] Basophil percentage 109 mmol/L 98-107 [facility] Basophils (Bld) [#/Vol] 4.1 10*3/uL 4.4-11.0 [facility] Basophils (Bld) [#/Vol] 2.4 10*3/uL 2.0-7.7 [facility] Basophils/100 WBC (Bld) 59.4 % 47-70 [facility] Basophils/100 WBC (Bld) 8.1 % 0-5 [facility] Basophils/100 WBC (Bld) 0.7 % 0-1 [facility] Chloride [Moles/Vol] 109 mmol/L 98-107 [facility] Eosinophils/100 WBC (Bld) 8.1 % 0-5 [facility] Glucose [Mass/Vol] 93 mg/dL 74-106 [facility] Neutrophils (Bld) [#/Vol] 2.4 10*3/uL 2.0-7.7 [facility] Neutrophils/100 WBC (Bld) 59.4 % 47-70 [facility] Potassium [Moles/Vol] 4.4 mmol/L 3.5-5.1 [facility] Sodium [Moles/Vol] 141 mmol/L 136-145 [facility] WBC (Bld) [#/Vol] 4.1 10*3/uL 4.4-11.0 [facility] Blood erythrocytes count (nu mber/volume)Ordered By: Paco Norman on 02-12-2023 RBC (Bld) [#/Vol] 2.53 10*6/uL 4.6-6.2 [facility] Blood hemoglobin measurement (mass/volume)Ordered By: Paco Norman on 02-12-2023 Hemoglobin (Bld) [Mass/Vol] 8.1 g/dL 13.0-16.5 [facility] Blood lymphocytes/100 leukoc ytesOrdered By: pillocamerondel Norman on 02-12-2023 Lymphocytes/100 WBC (Bld) 21.3 % 19-41 [facility] Blood monocytes/100 leukocyt esOrdered By: Paco Norman on 02-12-2023 Monocytes/100 WBC (Bld) 10.3 % 0-10 [facility] Blood platelet mean volumeOr dered By: Paco Norman on 02-12-2023 Platelet mean volume (Bld) [Entitic vol] 9.5 fL 6.2-12.0 [facility] Determination of erythrocyte mean corpuscular volume (MCV)Ordered By: Paco Norman on 02-12-2023 MCV (RBC) [Entitic vol] 104.7 fL 80-94 [facility] Hematocrit Auto (Bld) [Volum e fraction]Ordered By: Paco Norman on 02-12-2023 Hematocrit (Bld) [Volume fraction] 26.5 % 40-54 [facility] Laboratory - Chemistry and C hemistry - challengeOrdered By: Paco Norman on 02-12-2023 CO2 [Moles/Vol] 29.0 mmol/L 21.0-32.0 [facility] Urea nitrogen/Creatinine [Mass ratio] 27.3 mg/mg 10-20 [facility] Laboratory - Hematology and Cell countsOrdered By: Paco Norman on 02-12-2023 Erythrocyte distribution width (RBC) [Entitic vol] 60.2 fL 35.1-43.9 [facility] Erythrocyte distribution width (RBC) [Ratio] 15.6 % 11.6-14.6 [facility] Immature granulocytes/100 WBC (Bld) 0.200 % 0.0-0.9 [facility] Comment on above: IG% - Immature Granu locytes (promyelocytes, myelocytes and metamyelocytes) > 1% indicates that a LEFT SHIFT is Present. MCH (RBC) [Entitic mass] 32.0 pg 27.0-32.0 [facility] Nucleated RBC/100 WBC (Bld) [Ratio] 0 % 0-5 [facility] MCHC Auto (RBC) [Mass/Vol]Or dered By: Paco Norman on 02-12-2023 MCHC (RBC) [Mass/Vol] 30.6 g/dL 32-36 [facility] No Panel InformationOrdered By: Paco Norman on 02-12-2023 Estimated GFR (MDRD) Amer 38 mL/min >60 [facility] Comment on above: GFR Calc Estimated GFR (MDRD) Non-Af Amer 31 mL/min >60 [facility] Comment on above: Non- GFR Calc 32.0 pg 27.0-32.0 [facility] 15.6 % 11.6-14.6 [facility] 60.2 fl 35.1-43.9 [facility] 0.200 % 0.0-0.9 [facility] 0 % 0-5 [facility] 31 mL/min >60 [facility] 38 mL/min >60 [facility] 27.3 RATIO 10-20 [facility] 29.0 mmol/L 21.0-32.0 [facility] Platelets bldOrdered By: Rajendra Norman on 02-12-2023 Platelets (Bld) [#/Vol] 118 10*3/uL 150-450 [facility] Serum or plasma calcium elvia urement (mass/volume)Ordered By: Paco Norman on 02-12-2023 Calcium [Mass/Vol] 8.9 mg/dL 8.5-10.1 [facility] Serum or plasma creatinine m easurement (mass/volume)Ordered By: Paco Norman on 02-12-2023 Creatinine [Mass/Vol] 2.16 mg/dL 0.70-1.30 [facility] Comment on above: The validity of the calculated GFR & GFRAA in patients over 70 years has not been determined. Clinical correlation is essential. Serum or plasma urea nitroge n measurement (mass/volume)Ordered By: Paco Norman on 02-12-2023 Urea nitrogen [Mass/Vol] 59 mg/dL 7-18 [facility] Thin prep Papanicolaou smear with manual screeningOrdered By: Paco Norman on 02-12-2023 Thin prep Papanicolaou smear with manual screening 3 5-15 [facility] Absolute lymphocyte countOrd ered By: Paco Norman on 02-05-2023 Lymphocytes Auto (Unsp spec) [#/Vol] 0.79 10*3/uL 0.83-4.51 [facility] Basophil percentageOrdered B y: Paco Norman on 02-05-2023 Basophil percentage 102 mg/dL 74-106 [facility] Basophil percentage 141 mmol/L 136-145 [facility] Basophil percentage 4.6 mmol/L 3.5-5.1 [facility] Basophil percentage 108 mmol/L 98-107 [facility] Basophils (Bld) [#/Vol] 5.0 10*3/uL 4.4-11.0 [facility] Basophils (Bld) [#/Vol] 3.4 10*3/uL 2.0-7.7 [facility] Basophils/100 WBC (Bld) 68.4 % 47-70 [facility] Basophils/100 WBC (Bld) 5.2 % 0-5 [facility] Basophils/100 WBC (Bld) 0.4 % 0-1 [facility] Blood erythrocytes count (nu mber/volume)Ordered By: Paco Norman on 02-05-2023 RBC (Bld) [#/Vol] 2.65 10*6/uL 4.6-6.2 [facility] Blood hemoglobin measurement (mass/volume)Ordered By: Paco Norman on 02-05-2023 Hemoglobin (Bld) [Mass/Vol] 8.5 g/dL 13.0-16.5 [facility] Blood lymphocytes/100 leukoc ytesOrdered By: Paco Norman on 02-05-2023 Lymphocytes/100 WBC (Bld) 15.8 % 19-41 [facility] Blood monocytes/100 leukocyt esOrdered By: Paco Norman on 02-05-2023 Monocytes/100 WBC (Bld) 9.8 % 0-10 [facility] Blood platelet mean volumeOr dered By: Paco Norman on 02-05-2023 Platelet mean volume (Bld) [Entitic vol] 9.0 fL 6.2-12.0 [facility] Determination of erythrocyte mean corpuscular volume (MCV)Ordered By: Paco Norman on 02-05-2023 MCV (RBC) [Entitic vol] 103.0 fL 80-94 [facility] Hematocrit Auto (Bld) [Volum e fraction]Ordered By: Paco Norman on 02-05-2023 Hematocrit (Bld) [Volume fraction] 27.3 % 40-54 [facility] MCHC Auto (RBC) [Mass/Vol]Or dered By: Paco Norman on 02-05-2023 MCHC (RBC) [Mass/Vol] 31.1 g/dL 32-36 [facility] No Panel InformationOrdered By: Paco Norman on 02-05-2023 32.1 pg 27.0-32.0 [facility] 15.2 % 11.6-14.6 [facility] 57.1 fl 35.1-43.9 [facility] 0.400 % 0.0-0.9 [facility] 0 % 0-5 [facility] 29 mL/min >60 [facility] 35 mL/min >60 [facility] 28.4 RATIO 10-20 [facility] 29.0 mmol/L 21.0-32.0 [facility] Platelets bldOrdered By: Rajendra Norman on 02-05-2023 Platelets (Bld) [#/Vol] 139 10*3/uL 150-450 [facility] Serum or plasma calcium elvia urement (mass/volume)Ordered By: Paco Norman on 02-05-2023 Calcium [Mass/Vol] 9.1 mg/dL 8.5-10.1 [facility] Serum or plasma creatinine m easurement (mass/volume)Ordered By: Paco Norman on 02-05-2023 Creatinine [Mass/Vol] 2.32 mg/dL 0.70-1.30 [facility] Serum or plasma urea nitroge n measurement (mass/volume)Ordered By: Paco Norman on 02-05-2023 Urea nitrogen [Mass/Vol] 66 mg/dL 7-18 [facility] Thin prep Papanicolaou smear with manual screeningOrdered By: Paco Norman on 02-05-2023 Thin prep Papanicolaou smear with manual screening 4 5-15 [facility] Bacteria identified Cx Nom ( Wound)Ordered By: Paco Norman on 01-31-2023 Routine wound culture Klebsiella pneumon iae sp pneum [facility] Routine wound culture Corynebacterium striatum [facility] Gram stain for investigation of transfusion reactionOrdered By: Paco Norman on 01-31-2023 Microscopic observation Gram stain Nom (Unsp spec) [facility] Bacteria identified Cx Nom ( Wound)Ordered By: Paco Norman on 01-30-2023 Routine wound culture Klebsiella pneumon iae sp pneum [facility] Routine wound culture Corynebacterium striatum [facility] Gram stain for investigation of transfusion reactionOrdered By: Paco Norman on 01-30-2023 Microscopic observation Gram stain Nom (Unsp spec) [facility] Absolute lymphocyte countOrd ered By: Paco Norman on 01-29-2023 Lymphocytes Auto (Unsp spec) [#/Vol] 1.01 10*3/uL 0.83-4.51 [facility] Basophil percentageOrdered B y: Paco Norman on 01-29-2023 Basophil percentage 94 mg/dL 74-106 [facility] Basophil percentage 140 mmol/L 136-145 [facility] Basophil percentage 4.4 mmol/L 3.5-5.1 [facility] Basophil percentage 110 mmol/L 98-107 [facility] Basophils (Bld) [#/Vol] 5.1 10*3/uL 4.4-11.0 [facility] Basophils (Bld) [#/Vol] 3.3 10*3/uL 2.0-7.7 [facility] Basophils/100 WBC (Bld) 64.9 % 47-70 [facility] Basophils/100 WBC (Bld) 5.5 % 0-5 [facility] Basophils/100 WBC (Bld) 0.6 % 0-1 [facility] [facility] Blood erythrocytes count (nu mber/volume)Ordered By: Paco Norman on 01-29-2023 RBC (Bld) [#/Vol] 2.61 10*6/uL 4.6-6.2 [facility] Blood hemoglobin measurement (mass/volume)Ordered By: Paco Norman on 01-29-2023 Hemoglobin (Bld) [Mass/Vol] 8.6 g/dL 13.0-16.5 [facility] Blood lymphocytes/100 leukoc ytesOrdered By: Paco Norman on 01-29-2023 Lymphocytes/100 WBC (Bld) 19.8 % 19-41 [facility] Blood monocytes/100 leukocyt esOrdered By: Paco Norman on 01-29-2023 Monocytes/100 WBC (Bld) 8.8 % 0-10 [facility] Blood platelet mean volumeOr dered By: Paco Norman on 01-29-2023 Platelet mean volume (Bld) [Entitic vol] 9.5 fL 6.2-12.0 [facility] Determination of erythrocyte mean corpuscular volume (MCV)Ordered By: aPco Norman on 01-29-2023 MCV (RBC) [Entitic vol] 102.7 fL 80-94 [facility] Hematocrit Auto (Bld) [Volum e fraction]Ordered By: Paco Norman on 01-29-2023 Hematocrit (Bld) [Volume fraction] 26.8 % 40-54 [facility] MCHC Auto (RBC) [Mass/Vol]Or dered By: Paco Norman on 01-29-2023 MCHC (RBC) [Mass/Vol] 32.1 g/dL 32-36 [facility] No Panel InformationOrdered By: Paco Norman on 01-29-2023 33.0 pg 27.0-32.0 [facility] 14.6 % 11.6-14.6 [facility] 55.0 fl 35.1-43.9 [facility] 0.400 % 0.0-0.9 [facility] 0 % 0-5 [facility] 33 mL/min >60 [facility] 40 mL/min >60 [facility] 26.6 RATIO 10-20 [facility] 27.0 mmol/L 21.0-32.0 [facility] Platelets bldOrdered By: Rajendra Norman on 01-29-2023 Platelets (Bld) [#/Vol] 156 10*3/uL 150-450 [facility] Serum or plasma calcium elvia urement (mass/volume)Ordered By: Paco Norman on 01-29-2023 Calcium [Mass/Vol] 9.0 mg/dL 8.5-10.1 [facility] Serum or plasma creatinine m easurement (mass/volume)Ordered By: Paco Norman on 01-29-2023 Creatinine [Mass/Vol] 2.07 mg/dL 0.70-1.30 [facility] Serum or plasma urea nitroge n measurement (mass/volume)Ordered By: Paco Norman on 01-29-2023 Urea nitrogen [Mass/Vol] 55 mg/dL 7-18 [facility] Thin prep Papanicolaou smear with manual screeningOrdered By: Paco Norman on 01-29-2023 Thin prep Papanicolaou smear with manual screening 3 5-15 [facility] CNPNon 01-23-2023 CNPN Telephone (AGPOB1) AMAURY BLANK ([id number]) 1940 M Date Time Provider Department 01/23/23 ERROL ROD AGPOB1 During your visit today, we recorded the following information about you: Cynthia Mareslotarben Diaz 01/23/2023 5:12 PM Signed [facility] called in with 2 questions for Amaury's [...] Fully Assessed Reason for Visit: Patient Question [0117] Appointment [186] Prescriptions as of 01/27/2023 - [...] to moisture [R*01/03/2023 Coronary artery disease involving enterprise churchill*01/04/2023 S/P CABG (coronary artery bypass graft) [...] ischemic ulcer (HCC*01/07/2023 Encounter Status:Closed by CRI[employer] JEAN PAUL GEORGE on 01/27/23 [facility] Absolute lymphocyte countOrd ered By: Paco Norman on 01-22-2023 Lymphocytes Auto (Unsp spec) [#/Vol] 0.96 10*3/uL 0.83-4.51 [facility] Basophil percentageOrdered B y: Paco Norman on 01-22-2023 Basophil percentage 91 mg/dL 74-106 [facility] Basophil percentage 143 mmol/L 136-145 [facility] Basophil percentage 4.5 mmol/L 3.5-5.1 [facility] Basophil percentage 112 mmol/L 98-107 [facility] Basophils (Bld) [#/Vol] 4.8 10*3/uL 4.4-11.0 [facility] Basophils (Bld) [#/Vol] 3.2 10*3/uL 2.0-7.7 [facility] Basophils/100 WBC (Bld) 66.4 % 47-70 [facility] Basophils/100 WBC (Bld) 4.0 % 0-5 [facility] Basophils/100 WBC (Bld) 0.6 % 0-1 [facility] Blood erythrocytes count (nu mber/volume)Ordered By: Paco Norman on 01-22-2023 RBC (Bld) [#/Vol] 2.62 10*6/uL 4.6-6.2 [facility] Blood hemoglobin measurement (mass/volume)Ordered By: Paco Norman on 01-22-2023 Hemoglobin (Bld) [Mass/Vol] 8.4 g/dL 13.0-16.5 [facility] Blood lymphocytes/100 leukoc ytesOrdered By: Paco Norman on 01-22-2023 Lymphocytes/100 WBC (Bld) 20.0 % 19-41 [facility] Blood monocytes/100 leukocyt esOrdered By: Paco Norman on 01-22-2023 Monocytes/100 WBC (Bld) 8.6 % 0-10 [facility] Blood platelet mean volumeOr dered By: Paco Normna on 01-22-2023 Platelet mean volume (Bld) [Entitic vol] 9.4 fL 6.2-12.0 [facility] CNOVon 01-22-2023 CNOV Office Visit (NEAGCL M) AMAURY BLANK ([id number]) 1940 M Date Time Provider Department 01/22/23 11:30 AM AZUCENA VO NEAGCLM During your visit today, we recorded the following information about you: Pulse Blood pressure Weight Height 66/minute 87/51 75 kg 1.778 m Azucena Vo APRN.CNP 01/22/2023 12:19 PM Signed NEUROSURGERY FOLLOW UP OFFICE NOTE Azucena Vo APRN.CNP Date of visit: January 22, 2023 Patient Name: Mr.Vincent Calvin Blank Date of : 1940 Current Age: [age] year old Sex: male MRN/E# [id number] Last Office Visit: Hospital follow-up Chief Complaint: [...] No (more content not included)... Normal [facility] Determination of erythrocyte mean corpuscular volume (MCV)Ordered By: Paco Norman on 01-22-2023 MCV (RBC) [Entitic vol] 103.4 fL 80-94 [facility] Hematocrit Auto (Bld) [Volum e fraction]Ordered By: Paco Norman on 01-22-2023 Hematocrit (Bld) [Volume fraction] 27.1 % 40-54 [facility] MCHC Auto (RBC) [Mass/Vol]Or dered By: Paco Norman on 01-22-2023 MCHC (RBC) [Mass/Vol] 31.0 g/dL 32-36 [facility] No Panel InformationOrdered By: Paco Norman on 01-22-2023 32.1 pg 27.0-32.0 [facility] 14.6 % 11.6-14.6 [facility] 55.3 fl 35.1-43.9 [facility] 0.400 % 0.0-0.9 [facility] 0 % 0-5 [facility] 31 mL/min >60 [facility] 37 mL/min >60 [facility] 28.1 RATIO 10-20 [facility] 28.0 mmol/L 21.0-32.0 [facility] Platelets bldOrdered By: Rajendra Norman on 01-22-2023 Platelets (Bld) [#/Vol] 174 10*3/uL 150-450 [facility] Serum or plasma calcium elvia urement (mass/volume)Ordered By: Paco Norman on 01-22-2023 Calcium [Mass/Vol] 8.8 mg/dL 8.5-10.1 [facility] Serum or plasma creatinine m easurement (mass/volume)Ordered By: Paco Norman on 01-22-2023 Creatinine [Mass/Vol] 2.21 mg/dL 0.70-1.30 [facility] Serum or plasma urea nitroge n measurement (mass/volume)Ordered By: Paco Norman on 01-22-2023 Urea nitrogen [Mass/Vol] 62 mg/dL 7-18 [facility] Thin prep Papanicolaou smear with manual screeningOrdered By: Paco Norman on 01-22-2023 Thin prep Papanicolaou smear with manual screening 3 5-15 [facility] CT BRAIN WO IVCONon 01-21-[address] BRAIN WO IVCON * * *Final Report* * * DATE OF EXAM: Jan 20 2023 11:54AM [facility] 0504 - CT BRAIN WO IVCON / PROCEDURE REASON: Intraparenchymal hematoma of right side of brain due to trauma, with unknown los * * * * Physician Interpretation * * * * EXAMINATION: CT BRAIN WO IVCON CLINICAL HISTORY: Left frontal pole parenchymal hematoma follow-up. TECHNIQUE: Serial axial images without IV contrast were obtained from the vertex to the foramen magnum. MQ: CTBWO_3 CT Radiation dose: Integrated Dose-Length Product (DLP) for this visit = 719 mGy*cm CT Dose Reduction Employed: Automated exposure control(AEC) and iterative recon COMPARISON: MRI brain from 01/05/2023. RESULT: Pharmacist In Charge Owner (topogram) images: Unremarkable. Post-operative change: None. 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 [employer]: [facility] Transcribe Date/Time: Jan 20 2023 12:52P Dictated by : DEE MANDUJANO MD This examination was interpreted and the report reviewed and electronically signed by: DEE MANDUJANO MD on Jan 20 2023 12:54PM EST [id number] Normal [facility] Absolute lymphocyte countOrd ered By: Paco Norman on 01-15-2023 Lymphocytes Auto (Unsp spec) [#/Vol] 0.92 10*3/uL 0.83-4.51 [facility] Basophil percentageOrdered B y: Jelenamonse Emerson on 01-15-2023 Basophil percentage 95 mg/dL 74-106 [facility] Basophil percentage 141 mmol/L 136-145 [facility] Basophil percentage 4.9 mmol/L 3.5-5.1 [facility] Basophil percentage 109 mmol/L 98-107 [facility] Basophils (Bld) [#/Vol] 6.3 10*3/uL 4.4-11.0 [facility] Basophils (Bld) [#/Vol] 4.5 10*3/uL 2.0-7.7 [facility] Basophils/100 WBC (Bld) 71.9 % 47-70 [facility] Basophils/100 WBC (Bld) 1.7 % 0-5 [facility] Basophils/100 WBC (Bld) 0.5 % 0-1 [facility] Blood erythrocytes count (nu mber/volume)Ordered By: Paco Norman on 01-15-2023 RBC (Bld) [#/Vol] 2.51 10*6/uL 4.6-6.2 [facility] Blood hemoglobin measurement (mass/volume)Ordered By: Paco Norman on 01-15-2023 Hemoglobin (Bld) [Mass/Vol] 8.0 g/dL 13.0-16.5 [facility] Blood lymphocytes/100 leukoc ytesOrdered By: Paco Norman on 01-15-2023 Lymphocytes/100 WBC (Bld) 14.6 % 19-41 [facility] Blood monocytes/100 leukocyt esOrdered By: Paco Norman on 01-15-2023 Monocytes/100 WBC (Bld) 10.5 % 0-10 [facility] Blood platelet mean volumeOr dered By: Paco Norman on 01-15-2023 Platelet mean volume (Bld) [Entitic vol] 9.4 fL 6.2-12.0 [facility] Determination of erythrocyte mean corpuscular volume (MCV)Ordered By: Paco Norman on 01-15-2023 MCV (RBC) [Entitic vol] 104.4 fL 80-94 [facility] Hematocrit Auto (Bld) [Volum e fraction]Ordered By: Paco Norman on 01-15-2023 Hematocrit (Bld) [Volume fraction] 26.2 % 40-54 [facility] MCHC Auto (RBC) [Mass/Vol]Or dered By: Paco Norman on 01-15-2023 MCHC (RBC) [Mass/Vol] 30.5 g/dL 32-36 [facility] No Panel InformationOrdered By: Riaznicholasdel Norman on 01-15-2023 31.9 pg 27.0-32.0 [facility] 14.4 % 11.6-14.6 [facility] 54.6 fl 35.1-43.9 [facility] 0.800 % 0.0-0.9 [facility] 0 % 0-5 [facility] 29 mL/min >60 [facility] 35 mL/min >60 [facility] 27.9 RATIO 10-20 [facility] 26.0 mmol/L 21.0-32.0 [facility] Platelets bldOrdered By: Rajendra davondel Norman on 01-15-2023 Platelets (Bld) [#/Vol] 196 10*3/uL 150-450 [facility] Serum or plasma calcium elvia urement (mass/volume)Ordered By: Paco Norman on 01-15-2023 Calcium [Mass/Vol] 8.7 mg/dL 8.5-10.1 [facility] Serum or plasma creatinine m easurement (mass/volume)Ordered By: Paco Norman on 01-15-2023 Creatinine [Mass/Vol] 2.33 mg/dL 0.70-1.30 [facility] Serum or plasma urea nitroge n measurement (mass/volume)Ordered By: Paco Norman on 01-15-2023 Urea nitrogen [Mass/Vol] 65 mg/dL 7-18 [facility] Thin prep Papanicolaou smear with manual screeningOrdered By: Paco Norman on 01-15-2023 Thin prep Papanicolaou smear with manual screening 6 5-15 [facility] Absolute lymphocyte countOrd ered By: Paco Norman on 01-13-2023 Lymphocytes Auto (Unsp spec) [#/Vol] 1.17 10*3/uL 0.83-4.51 [facility] Basophil percentageOrdered B y: Paco Norman on 01-13-2023 Basophils (Bld) [#/Vol] 6.4 10*3/uL 4.4-11.0 [facility] Basophils (Bld) [#/Vol] 4.3 10*3/uL 2.0-7.7 [facility] Basophils/100 WBC (Bld) 67.6 % 47-70 [facility] Basophils/100 WBC (Bld) 1.9 % 0-5 [facility] Basophils/100 WBC (Bld) 0.3 % 0-1 [facility] Blood erythrocytes count (nu mber/volume)Ordered By: Jelenamonse Norman on 01-13-2023 RBC (Bld) [#/Vol] 2.54 10*6/uL 4.6-6.2 [facility] Blood hemoglobin measurement (mass/volume)Ordered By: Riazongdel Norman on 01-13-2023 Hemoglobin (Bld) [Mass/Vol] 8.3 g/dL 13.0-16.5 [facility] Blood lymphocytes/100 leukoc ytesOrdered By: Riazongdel Españadyanasreedhar on 01-13-2023 Lymphocytes/100 WBC (Bld) 18.4 % 19-41 [facility] Blood monocytes/100 leukocyt esOrdered By: Efewongbe Oledyanae on 01-13-2023 Monocytes/100 WBC (Bld) 11.5 % 0-10 [facility] Blood platelet mean volumeOr dered By: Riazongbe Aniyahsreedhar on 01-13-2023 Platelet mean volume (Bld) [Entitic vol] 9.4 fL 6.2-12.0 [facility] CNPNon 01-13-2023 AUDIN Telephone (AGPOB1) AMAURY BLANK ([id number]) 1940 M Date Time Provider Department 01/13/23 ERROL ROD During your visit today, we recorded the following information about you: Cristobal [place] Jean Paul George 01/13/2023 4:43 PM Signed Received: 3 days ago Saida [place] PpgBrooke [place] Jean Paul George Previous Messages ----- Message ----- From: DmitryMadalynIrina Sent: 01/10/2023 12:31 PM EDT To: Ortho Triage Pool Subject: Orthopedics / Open Leg: Pain / Post Op Withi* Subject Line Format: Orthopedics / [Provider Name or Open AND Body Part] / [Issue] Patient has been identified by name and Date of (Y/N): y Patient: Amaury Blank Date of : 1940 Previous Provider Seen: [facility] Body Part(s) Identified: leg Diagnosis/Reason For Visit: post op Reason for the call/escalation: pt is staying at [facility].estefania called to schedule pt a post op appt tool will not allow scheduling If reason for call/escalation is discharge from ED/ER or Hospital, which facility was the patient seen at: na Was an appointment scheduled (Y/N): n Person calling if other than patient: na Return call to if other than patient: na Best contact number: [phone] Thank you, Irina Andres January 10, 2023 12:03 PM Jean Pual Mares 01/22/2023 4:29 PM Signed Called senior living Allergies As of Date: 01/13/2023 Noted Allergy Reaction AMLODIPINE 12/13/2014 2 - Rash LOVASTATIN 12/13/2014 4 - Hives Date Reviewed: 01/04/2023 Reviewed by: Moni Childers RN - Fully Assessed Reason for Visit: Contact Center Call [1134] Prescriptions as of 01/22/2023 - acetaminophen (TYLENOL [...] to moisture [R*01/03/2023 Coronary artery disease involving enterprise churchill*01/04/2023 S/P CABG (coronary artery bypass graft) [...] ischemic ulcer (HCC*01/07/2023 Encounter Status:Closed by CRISTOBAL [employer] JEAN PAUL GEORGE on 01/22/23 [facility] Determination of erythrocyte mean corpuscular volume (MCV)Ordered By: Paco Norman on 01-13-2023 MCV (RBC) [Entitic vol] 103.9 fL 80-94 [facility] Hematocrit Auto (Bld) [Volum e fraction]Ordered By: Paco Norman on 01-13-2023 Hematocrit (Bld) [Volume fraction] 26.4 % 40-54 [facility] MCHC Auto (RBC) [Mass/Vol]Or dered By: Paco Norman on 01-13-2023 MCHC (RBC) [Mass/Vol] 31.4 g/dL 32-36 [facility] No Panel InformationOrdered By: Paco Norman on 01-13-2023 32.7 pg 27.0-32.0 [facility] 14.5 % 11.6-14.6 [facility] 54.8 fl 35.1-43.9 [facility] 0.300 % 0.0-0.9 [facility] 0 % 0-5 [facility] Platelets bldOrdered By: Rajendra Norman on 01-13-2023 Platelets (Bld) [#/Vol] 200 10*3/uL 150-450 [facility] Absolute lymphocyte countOrd ered By: Paco Norman on 01-10-2023 Lymphocytes Auto (Unsp spec) [#/Vol] 0.93 10*3/uL 0.83-4.51 [facility] Basophil percentageOrdered B y: Paco Dillsreedhar on 01-10-2023 Basophil percentage 96 mg/dL 74-106 [facility] Basophil percentage 4.9 g/dL 6.4-8.2 [facility] Basophil percentage 0.40 mg/dL 0.20-1.00 [facility] Basophil percentage 140 mmol/L 136-145 [facility] Basophil percentage 4.5 mmol/L 3.5-5.1 [facility] Basophil percentage 112 mmol/L 98-107 [facility] Basophils (Bld) [#/Vol] 4.9 10*3/uL 4.4-11.0 [facility] Basophils (Bld) [#/Vol] 3.2 10*3/uL 2.0-7.7 [facility] Basophils/100 WBC (Bld) 65.5 % 47-70 [facility] Basophils/100 WBC (Bld) 2.6 % 0-5 [facility] Basophils/100 WBC (Bld) 0.2 % 0-1 [facility] Blood erythrocytes count (nu mber/volume)Ordered By: Paco Norman on 01-10-2023 RBC (Bld) [#/Vol] 2.47 10*6/uL 4.6-6.2 [facility] Blood hemoglobin measurement (mass/volume)Ordered By: Paco Norman on 01-10-2023 Hemoglobin (Bld) [Mass/Vol] 8.0 g/dL 13.0-16.5 [facility] Blood lymphocytes/100 leukoc ytesOrdered By: Paco Norman on 01-10-2023 Lymphocytes/100 WBC (Bld) 18.9 % 19-41 [facility] Blood monocytes/100 leukocyt esOrdered By: Jelenapilloongdel Españadyanasreedhar on 01-10-2023 Monocytes/100 WBC (Bld) 12.2 % 0-10 [facility] Blood platelet mean volumeOr dered By: Paco Españadyanasreedhar on 01-10-2023 Platelet mean volume (Bld) [Entitic vol] 9.1 fL 6.2-12.0 [facility] Determination of erythrocyte mean corpuscular volume (MCV)Ordered By: Paco Norman on 01-10-2023 MCV (RBC) [Entitic vol] 102.8 fL 80-94 [facility] Hematocrit Auto (Bld) [Volum e fraction]Ordered By: Paco Norman on 01-10-2023 Hematocrit (Bld) [Volume fraction] 25.4 % 40-54 [facility] MCHC Auto (RBC) [Mass/Vol]Or dered By: Paco Norman on 01-10-2023 MCHC (RBC) [Mass/Vol] 31.5 g/dL 32-36 [facility] No Panel InformationOrdered By: Paco Norman on 01-10-2023 32.4 pg 27.0-32.0 [facility] 14.8 % 11.6-14.6 [facility] 56.1 fl 35.1-43.9 [facility] 0.600 % 0.0-0.9 [facility] 0 % 0-5 [facility] 30 mL/min >60 [facility] 37 mL/min >60 [facility] 24.2 RATIO 10-20 [facility] 3.0 g/dL 2.2-4.2 [facility] 141 U/L 45-117 [facility] 20 U/L 16-61 [facility] 22.0 mmol/L 21.0-32.0 [facility] Platelets bldOrdered By: Rajendra Norman on 01-10-2023 Platelets (Bld) [#/Vol] 159 10*3/uL 150-450 [facility] Serum or plasma albumin elvia urement (mass/volume)Ordered By: Paco Norman on 01-10-2023 Albumin [Mass/Vol] 1.9 g/dL 3.2-5.0 [facility] Serum or plasma albumin/glob ulin mass ratioOrdered By: Paco Norman on 01-10-2023 Albumin/Globulin [Mass ratio] 0.6 {ratio} 0.9-2.4 [facility] Serum or plasma calcium elvia urement (mass/volume)Ordered By: Paco Norman on 01-10-2023 Calcium [Mass/Vol] 8.4 mg/dL 8.5-10.1 [facility] Serum or plasma creatinine m easurement (mass/volume)Ordered By: Paco Norman on 01-10-2023 Creatinine [Mass/Vol] 2.23 mg/dL 0.70-1.30 [facility] Serum or plasma urea nitroge n measurement (mass/volume)Ordered By: Paco Norman on 01-10-2023 Urea nitrogen [Mass/Vol] 54 mg/dL 7-18 [facility] Thin prep Papanicolaou smear with manual screeningOrdered By: Paco Norman on 01-10-2023 Thin prep Papanicolaou smear with manual screening 31 U/L 15-37 [facility] Thin prep Papanicolaou smear with manual screening 6 5-15 [facility] Basic metabolic 2000 panelon 01-09-2023 Anion gap [Moles/Vol] 9 mmol/L Normal 9-18 [facility] Comment on above: Order Comment: Speci men Type: BLOOD SPECIMEN Ordering Facility: [facility] Address: [address] [address] Performed By: #### 5 8410-2 #### [facility] CLIA [id number] [address] [place] Calcium [Mass/Vol] 8.2 mg/dL Low 8.5-10.2 [facility] Comment on above: Order Comment: Speci men Type: BLOOD SPECIMEN Ordering Facility: [facility] Address: [address] [address] Performed By: #### 5 8410-2 #### [facility] CLIA [id number] [address] [place] [address] [place] Chloride [Moles/Vol] 108 mmol/L High 97-105 [facility] Comment on above: Order Comment: Speci men Type: BLOOD SPECIMEN Ordering Facility: [facility] Address: [address] [address] Performed By: #### 5 8410-2 #### [facility] CLIA [id number] [address] CO2 [Moles/Vol] 21 mmol/L Low 22-30 [facility] Comment on above: Order Comment: Speci men Type: BLOOD SPECIMEN Ordering Facility: [facility] Address: [address] [address] Performed By: #### 5 8410-2 #### [facility] CLIA [id number] [address] [place] [facility] Creatinine [Mass/Vol] 2.14 mg/dL High 0.73-1.22 [facility] Comment on above: Order Comment: Speci men Type: BLOOD SPECIMEN Ordering Facility: [facility] Address: [address] [place] [address] Performed By: #### 5 8410-2 #### [facility] CLIA [id number] [address] ESTIMATED GLOMERULAR FILTRATION RATE 30 mL/min/1.73m??? Low >=60 [facility] Comment on above: Order Comment: Speci men Type: BLOOD SPECIMEN Ordering Facility: [facility] Address: [address] [place] [address] Result Comment: Lindsay mated Glomerular Filtration Rate [...] GFR. Performed By: #### 5 8410-2 #### [facility] CLIA [id number] [address] Glucose [Mass/Vol] 107 mg/dL High 74-99 [facility] Comment on above: Order Comment: Speci men Type: BLOOD SPECIMEN Ordering Facility: [facility] Address: [address] [place] [address] Result Comment: The [place] [employer] Association (ADA) provides guidance for cutoff [...] Standards of Medical Care in Diabetes 2016, [place] [employer] Association. Diabetes Care. 2016.39(Suppl 1). Performed By: #### 5 8410-2 #### [facility] CLIA [id number] [address] [place] [facility] Potassium [Moles/Vol] 4.5 mmol/L Normal 3.7-5.1 [facility] Comment on above: Order Comment: Speci akil Type: BLOOD SPECIMEN Ordering Facility: [facility] Address: [address] [address] Performed By: #### 5 8410-2 #### [facility] CLIA [id number] [address] [place] [facility] Sodium [Moles/Vol] 138 mmol/L Normal 136-144 [facility] Comment on above: Order Comment: Jamesi akil Type: BLOOD SPECIMEN Ordering Facility: [facility] Address: [address] [address] Performed By: #### 5 8410-2 #### [facility] CLIA [id number] [address] [facility] Urea nitrogen [Mass/Vol] 44 mg/dL High 9-24 [facility] Comment on above: Order Comment: Jamesi akil Type: BLOOD SPECIMEN Ordering Facility: [facility] Address: [address] [address] Performed By: #### 5 8410-2 #### [facility] CLIA [id number] [address] [place] CBC panel Auto (Bld)on 01-09 Erythrocyte distribution width (RBC) [Ratio] 14.9 % Normal 11.5-15.0 [facility] Comment on above: Order Comment: Speci men Type: BLOOD SPECIMEN Ordering Facility: [facility] Address: [address] [address] Performed By: #### 5 8410-2 #### [facility] CLIA [id number] [address] Hematocrit (Bld) [Volume fraction] 24.6 % Low 39.0-51.0 [facility] Comment on above: Order Comment: Speci men Type: BLOOD SPECIMEN Ordering Facility: [facility] Address: [address] [place] [address] Performed By: #### 5 8410-2 #### [facility] CLIA [id number] [address] [facility] Hemoglobin (Bld) [Mass/Vol] 7.8 g/dL Low 13.0-17.0 [facility] Comment on above: Order Comment: Speci men Type: BLOOD SPECIMEN Ordering Facility: [facility] Address: [address] [address] Performed By: #### 5 8410-2 #### [facility] CLIA [id number] [address] MCH (RBC) [Entitic mass] 31.6 pg Normal 26.0-34.0 [facility] Comment on above: Order Comment: Speci men Type: BLOOD SPECIMEN Ordering Facility: [facility] Address: [address] [address] Performed By: #### 5 8410-2 #### [facility] CLIA [id number] [address] MCHC (RBC) [Mass/Vol] 31.7 g/dL Normal 30.5-36.0 [facility] Comment on above: Order Comment: Speci men Type: BLOOD SPECIMEN Ordering Facility: [facility] Address: [address] [place] [address] Performed By: #### 5 8410-2 #### [facility] CLIA [id number] [address] MCV (RBC) [Entitic vol] 99.6 fL Normal 80.0-100.0 [facility] Comment on above: Order Comment: Speci men Type: BLOOD SPECIMEN Ordering Facility: [facility] Address: [address] [place] [address] Performed By: #### 5 8410-2 #### [facility] CLIA [id number] [address] [place] Nucleated RBC (Bld) [#/Vol] 10*3/uL Normal <0.01 [facility] Comment on above: Order Comment: Speci men Type: BLOOD SPECIMEN Ordering Facility: [facility] Address: [address] [place] [address] Performed By: #### 5 8410-2 #### [facility] CLIA [id number] [address] Platelet mean volume (Bld) [Entitic vol] 9.7 fL Normal 9.0-12.7 [facility] Comment on above: Order Comment: Speci men Type: BLOOD SPECIMEN Ordering Facility: [facility] Address: [address] [place] [address] Performed By: #### 5 8410-2 #### [facility] CLIA [id number] [address] Platelets (Bld) [#/Vol] 162 10*3/uL Normal 150-400 [facility] Comment on above: Order Comment: Speci men Type: BLOOD SPECIMEN Ordering Facility: [facility] Address: [address] [place] [address] Performed By: #### 5 8410-2 #### [facility] CLIA [id number] [address] [place] RBC (Bld) [#/Vol] 2.47 10*6/uL Low 4.20-6.00 [facility] Comment on above: Order Comment: Speci men Type: BLOOD SPECIMEN Ordering Facility: [facility] Address: [address] [id number] Performed By: #### 5 8410-2 #### [facility] CLIA [id number] [address] WBC (Bld) [#/Vol] 4.84 10*3/uL Normal 3.70-11.00 [facility] Comment on above: Order Comment: Speci men Type: BLOOD SPECIMEN Ordering Facility: [facility] Address: [place] [address] Performed By: #### 5 8410-2 #### [facility] CLIA [id number] [address] CNDSon 01-09-2023 CNDS HNO ID: [id number] Author: Jacob Sanchez MD Service: General Surgery [...] Patient was evaluated in the ED at [facility] on 01/03/2023 after a fall. As a [...] that the patient be discharged to a usp facility. He was deemed medically stable for discharge to a usp facility by the attending trauma surgeon on 01/09/2023. OTHER PROBLEMS/DIAGNOSIS: Principal Problem (Resolved): Head injury, acute, without loss of consciousness, sequela Active Problems: Skin tear of left elbow without complication Noninfected skin tear of left leg Alteration in skin integrity due to moisture Coronary artery disease involving enterprise coronary artery of enterprise heart S/P CABG (coronary artery bypass graft) Atrial fibrillation (HCC) Primary hypertension Other hyperlipidemia COPD (chronic obstructive pulmonary disease) (HCC) Malnutrition of moderate degree (HCC) ABLA (acute blood loss anemia) Arterial insufficiency with ischemic ulcer (HCC) Resolved Problems: Stasis ulcer (HCC) Fall Closed displaced comminuted fracture of shaft of left femur (HCC) Open wound of left foot Operations/Procedures: 1. Insertion of left hip intramedullary femoral nail on 01/04/[address] Rod 2. Left foot wound debridement by podiatry on 01/06/2023 TEST RESULTS NOT AVAILABLE AT THIS TIME: N/A Discharge Disposition Discharge Disposition: [facility] Facility - Less than 30 Days Activity [...] dr (more content not included)... Normal [facility] SARS-CoV-2 RNA Resp Ql SANTANA+p robeon 01-09-2023 SARS-CoV-2 (COVID-19) RNA SANTANA+probe Ql (Resp) COVID 19 RESULT: Not detected The method used is RT-PCR or an equivalent NAAT method. Reference Range(the expected result in uninfected individuals): Not detected Normal [facility] Comment on above: Performed By: #### 9 4500-6 ####[facility] [id number] [address] [facility] THERAPY NTon 01-09-2023 THERAPY NT HNO ID: [id number] Author: Tremayne Mckeon, CHAY Service: Physical Therapy Author Type: Physical Therapist Type: Therapy (PT/OT/Speech/Resp) Filed: 01/09/2023 9:26 AM Note Text: Physical Therapy Treatment SERVICE DATE: 01/09/2023 SERVICE TIME: 846 to 909 ROOM: [address] [address] Recommended Discharge Disposition: Subacute/SNF Recommended Discharge Disposition [...] Extremity (more content not included)... Normal [facility] Basic metabolic 2000 panelon 01-08-2023 Anion gap [Moles/Vol] 11 mmol/L Normal 9-18 [facility] Comment on above: Order Comment: Speci men Type: BLOOD SPECIMEN Ordering Facility: [facility] Address: [address] [place] [id number] Performed By: #### 5 8410-2 #### [facility] CLIA [id number] 1 [place] [address] [place] Calcium [Mass/Vol] 8.4 mg/dL Low 8.5-10.2 [facility] Comment on above: Order Comment: Speci men Type: BLOOD SPECIMEN Ordering Facility: [facility] Address: [address] [place] [address] Performed By: #### 5 8410-2 #### [facility] [facility] CLIA [id number] [address] [place] Chloride [Moles/Vol] 106 mmol/L High 97-105 [facility] Comment on above: Order Comment: Speci men Type: BLOOD SPECIMEN Ordering Facility: [facility] Address: [address] [place] [address] Performed By: #### 5 8410-2 #### [facility] CLIA [id number] [address] [place] CO2 [Moles/Vol] 20 mmol/L Low 22-30 [facility] Comment on above: Order Comment: Speci men Type: BLOOD SPECIMEN Ordering Facility: [facility] Address: [address] [place] [address] Performed By: #### 5 8410-2 #### [facility] CLIA [id number] [address] [place] [address] [place] Creatinine [Mass/Vol] 2.21 mg/dL High 0.73-1.22 [facility] Comment on above: Order Comment: Speci men Type: BLOOD SPECIMEN Ordering Facility: [facility] Address: [address] [place] [address] Performed By: #### 5 8410-2 #### [facility] CLIA [id number] [address] [place] ESTIMATED GLOMERULAR FILTRATION RATE 29 mL/min/1.73m??? Low >=60 [facility] Comment on above: Order Comment: Speci men Type: BLOOD SPECIMEN Ordering Facility: [facility] Address: [address] [place] [address] Result Comment: Lindsay mated Glomerular Filtration Rate [...] 5 8410-2 #### [facility] CLIA [id number] 1 [place] [address] [place] Glucose [Mass/Vol] 128 mg/dL High 74-99 [facility] Comment on above: Order Comment: Migel barnard Type: BLOOD SPECIMEN Ordering Facility: [facility] Address: [address] [place] [address] Result Comment: The [place] Diabetes Association (ADA) provides guidance for cutoff [...] Standards of Medical Care in Diabetes 2016, [place] [employer] Association. Diabetes Care. 2016.39(Suppl 1). Performed By: #### 5 8410-2 #### [facility] CLIA [id number] 1 [place] [address] [place] Potassium [Moles/Vol] 4.3 mmol/L Normal 3.7-5.1 [facility] Comment on above: Order Comment: Migel barnard Type: BLOOD SPECIMEN Ordering Facility: [facility] Address: [address] [place] [address] Performed By: #### 5 8410-2 #### [facility] CLIA [id number] 1 [place] [address] [place] Sodium [Moles/Vol] 137 mmol/L Normal 136-144 [facility] Comment on above: Order Comment: Migel barnard Type: BLOOD SPECIMEN Ordering Facility: [facility] Address: [address] [place] [address] Performed By: #### 5 8410-2 #### [facility] CLIA [id number] [address] [facility] Urea nitrogen [Mass/Vol] 43 mg/dL High 9-24 [facility] Comment on above: Order Comment: Speci men Type: BLOOD SPECIMEN Ordering Facility: [facility] Address: [address] [place] [address] Performed By: #### 5 8410-2 #### [facility] CLIA [id number] [address] CBC panel Auto (Bld)on 01-08 Erythrocyte distribution width (RBC) [Ratio] 14.9 % Normal 11.5-15.0 [facility] Comment on above: Order Comment: Speci men Type: BLOOD SPECIMEN Ordering Facility: [facility] Address: [address] [place] [address] Performed By: #### 5 8410-2 #### [facility] CLIA [id number] [address] Hematocrit (Bld) [Volume fraction] 24.5 % Low 39.0-51.0 [facility] Comment on above: Order Comment: Speci men Type: BLOOD SPECIMEN Ordering Facility: [facility] Address: [address] [place] [address] Performed By: #### 5 8410-2 #### [facility] CLIA [id number] [address] [facility] Hemoglobin (Bld) [Mass/Vol] 7.9 g/dL Low 13.0-17.0 [facility] Comment on above: Order Comment: Speci men Type: BLOOD SPECIMEN Ordering Facility: [facility] Address: [address] [place] [address] Performed By: #### 5 8410-2 #### [facility] CLIA [id number] [address] MCH (RBC) [Entitic mass] 32.1 pg Normal 26.0-34.0 [facility] Comment on above: Order Comment: Speci men Type: BLOOD SPECIMEN Ordering Facility: [facility] Address: [address] [address] Performed By: #### 5 8410-2 #### [facility] CLIA [id number] [address] MCHC (RBC) [Mass/Vol] 32.2 g/dL Normal 30.5-36.0 [facility] Comment on above: Order Comment: Speci men Type: BLOOD SPECIMEN Ordering Facility: [facility] Address: [address] [address] Performed By: #### 5 8410-2 #### [facility] CLIA [id number] [address] MCV (RBC) [Entitic vol] 99.6 fL Normal 80.0-100.0 [facility] Comment on above: Order Comment: Speci men Type: BLOOD SPECIMEN Ordering Facility: [facility] Address: [address] [place] [address] Performed By: #### 5 8410-2 #### [facility] CLIA [id number] [address] Nucleated RBC (Bld) [#/Vol] 10*3/uL Normal <0.01 [facility] Comment on above: Order Comment: Speci men Type: BLOOD SPECIMEN Ordering Facility: [facility] Address: [address] [address] Performed By: #### 5 8410-2 #### [facility] CLIA [id number] [address] Platelet mean volume (Bld) [Entitic vol] 9.6 fL Normal 9.0-12.7 [facility] Comment on above: Order Comment: Speci men Type: BLOOD SPECIMEN Ordering Facility: [facility] Address: [address] [address] Performed By: #### 5 8410-2 #### [facility] CLIA [id number] [address] Platelets (Bld) [#/Vol] 160 10*3/uL Normal 150-400 [facility] Comment on above: Order Comment: Speci men Type: BLOOD SPECIMEN Ordering Facility: [facility] Address: [address] [place] [address] Performed By: #### 5 8410-2 #### [facility] CLIA [id number] [address] [facility] RBC (Bld) [#/Vol] 2.46 10*6/uL Low 4.20-6.00 [facility] Comment on above: Order Comment: Speci men Type: BLOOD SPECIMEN Ordering Facility: [facility] Address: [address] [place] [address] Performed By: #### 5 8410-2 #### [facility] CLIA [id number] [address] [facility] WBC (Bld) [#/Vol] 5.51 10*3/uL Normal 3.70-11.00 [facility] Comment on above: Order Comment: Speci men Type: BLOOD SPECIMEN Ordering Facility: [facility] Address: [address] [place] [address] Performed By: #### 5 8410-2 #### [facility] CLIA [id number] [address] THERAPY NTon 01-08-2023 THERAPY NT HNO ID: [id number] Author: ROSALIO Heller/Gunner Service: Occupational Therapy Author Type: Occupational Therapist Type: Therapy (PT/OT/Speech/Resp) Filed: 01/08/2023 3:35 PM Note Text: Occupational Therapy Treatment SERVICE DATE: 01/08/2023 SERVICE TIME: 1411 to 1439 ROOM: [address] [address] Recommended Discharge Disposition: Subacute/SNF Recommended Discharge Disposition [...] 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 Normal [facility] Basic metabolic 2000 panelon 01-07-2023 Anion gap [Moles/Vol] 10 mmol/L Normal 9-18 [facility] Comment on above: Order Comment: Speci men Type: BLOOD SPECIMEN Ordering Facility: [facility] Address: [address] [address] Performed By: #### 5 8410-2 #### [facility] CLIA [id number] 1 [place] [address] [place] Calcium [Mass/Vol] 8.6 mg/dL Normal 8.5-10.2 [facility] Comment on above: Order Comment: Speci men Type: BLOOD SPECIMEN Ordering Facility: [facility] Address: [address] [address] Performed By: #### 5 8410-2 #### [facility] CLIA [id number] 1 [place] [address] [place] Chloride [Moles/Vol] 105 mmol/L Normal 97-105 [facility] Comment on above: Order Comment: Speci men Type: BLOOD SPECIMEN Ordering Facility: [facility] Address: [address] [place] [address] Performed By: #### 5 8410-2 #### [facility] CLIA [id number] [address] [place] CO2 [Moles/Vol] 22 mmol/L Normal 22-30 [facility] Comment on above: Order Comment: Speci men Type: BLOOD SPECIMEN Ordering Facility: [facility] Address: [address] [place] [address] Performed By: #### 5 8410-2 #### [facility] CLIA [id number] [address] [facility] Creatinine [Mass/Vol] 2.38 mg/dL High 0.73-1.22 [facility] Comment on above: Order Comment: Speci men Type: BLOOD SPECIMEN Ordering Facility: [facility] Address: [address] [place] [address] Performed By: #### 5 8410-2 #### [facility] CLIA [id number] [address] ESTIMATED GLOMERULAR FILTRATION RATE 27 mL/min/1.73m??? Low >=60 [facility] Comment on above: Order Comment: Speci men Type: BLOOD SPECIMEN Ordering Facility: [facility] Address: [address] [place] [address] Result Comment: Lindsay mated Glomerular Filtration Rate [...] GFR. Performed By: #### 5 8410-2 #### [facility] CLIA [id number] [address] [place] Glucose [Mass/Vol] 103 mg/dL High 74-99 [facility] Comment on above: Order Comment: Migel barnard Type: BLOOD SPECIMEN Ordering Facility: [facility] Address: [address] [place] [address] Result Comment: The [place] Diabetes Association (ADA) provides guidance for cutoff [...] Standards of Medical Care in Diabetes 2016, [place] Diabetes Association. Diabetes Care. 2016.39(Suppl 1). Performed By: #### 5 8410-2 #### [facility] CLIA [id number] 1 [place] [address] [place] Potassium [Moles/Vol] 4.4 mmol/L Normal 3.7-5.1 [facility] Comment on above: Order Comment: Migel barnard Type: BLOOD SPECIMEN Ordering Facility: [facility] Address: [address] [place] [address] Performed By: #### 5 8410-2 #### [facility] CLIA [id number] 1 [place] [address] [place] Sodium [Moles/Vol] 137 mmol/L Normal 136-144 [facility] Comment on above: Order Comment: Jamesi men Type: BLOOD SPECIMEN Ordering Facility: [facility] Address: [address] [place] [address] Performed By: #### 5 8410-2 #### [facility] CLIA [id number] 1 [place] [address] [place] Urea nitrogen [Mass/Vol] 42 mg/dL High 9-24 [facility] Comment on above: Order Comment: Jamesi men Type: BLOOD SPECIMEN Ordering Facility: [facility] Address: [address] [address] Performed By: #### 5 8410-2 #### [email or web address] CLIA [id number] [address] [facility] CASE MANAGEMon 01-07-2023 CASE MANAGEM HNO ID: [id number] Author: ANNE Pena Service: ? Author Type: Can Closing Machine Operator Type: Care Mgt Progress Note Filed: 01/07/2023 [...] 07, 2023 TIME: 8:17 AM PAGER/CONTACT #: [phone] Normal [facility] CBC panel Auto (Bld)on 01-07 Erythrocyte distribution width (RBC) [Ratio] 15.1 % High 11.5-15.0 [facility] Comment on above: Order Comment: Speci men Type: BLOOD SPECIMEN Ordering Facility: [facility] Address: [address] [place] [address] Performed By: #### 5 8410-2 #### [facility] CLIA [id number] [address] [facility] Hematocrit (Bld) [Volume fraction] 25.5 % Low 39.0-51.0 [facility] Comment on above: Order Comment: Speci men Type: BLOOD SPECIMEN Ordering Facility: [facility] Address: [address] [place] [address] Performed By: #### 5 8410-2 #### [facility] CLIA [id number] [address] [place] Hemoglobin (Bld) [Mass/Vol] 8.2 g/dL Low 13.0-17.0 [facility] Comment on above: Order Comment: Speci men Type: BLOOD SPECIMEN Ordering Facility: [facility] Address: [address] [address] Performed By: #### 5 8410-2 #### [facility] CLIA [id number] [address] MCH (RBC) [Entitic mass] 31.8 pg Normal 26.0-34.0 [facility] Comment on above: Order Comment: Speci men Type: BLOOD SPECIMEN Ordering Facility: [facility] Address: [address] [address] Performed By: #### 5 8410-2 #### [facility] CLIA [id number] [address] MCHC (RBC) [Mass/Vol] 32.2 g/dL Normal 30.5-36.0 [facility] Comment on above: Order Comment: Speci men Type: BLOOD SPECIMEN Ordering Facility: [facility] Address: [address] [address] Performed By: #### 5 8410-2 #### [facility] CLIA [id number] [address] MCV (RBC) [Entitic vol] 98.8 fL Normal 80.0-100.0 [facility] Comment on above: Order Comment: Speci men Type: BLOOD SPECIMEN Ordering Facility: [facility] Address: [address] [place] [address] Performed By: #### 5 8410-2 #### [facility] CLIA [id number] [address] Nucleated RBC (Bld) [#/Vol] 10*3/uL Normal <0.01 [facility] Comment on above: Order Comment: Speci men Type: BLOOD SPECIMEN Ordering Facility: [facility] Address: [address] [place] [address] Performed By: #### 5 8410-2 #### [facility] CLIA [id number] [address] [place] [address] [place] Platelet mean volume (Bld) [Entitic vol] 9.7 fL Normal 9.0-12.7 [facility] Comment on above: Order Comment: Speci men Type: BLOOD SPECIMEN Ordering Facility: [facility] Address: [address] [place] [address] Performed By: #### 5 8410-2 #### [facility] CLIA [id number] [address] [place] Platelets (Bld) [#/Vol] 161 10*3/uL Normal 150-400 [facility] Comment on above: Order Comment: Speci men Type: BLOOD SPECIMEN Ordering Facility: [facility] Address: [address] [place] [address] Performed By: #### 5 8410-2 #### [facility] CLIA [id number] [address] RBC (Bld) [#/Vol] 2.58 10*6/uL Low 4.20-6.00 [facility] Comment on above: Order Comment: Speci men Type: BLOOD SPECIMEN Ordering Facility: [facility] Address: [address] [place] [address] Performed By: #### 5 8410-2 #### [facility] CLIA [id number] [address] WBC (Bld) [#/Vol] 5.19 10*3/uL Normal 3.70-11.00 [facility] Comment on above: Order Comment: Speci men Type: BLOOD SPECIMEN Ordering Facility: [facility] Address: [address] [place] [address] Performed By: #### 5 8410-2 #### [facility] CLIA [id number] [address] CONSULT PROGon 01-07-2023 CONSULT PROG HNO ID: [id number] Author: Carly Sinclair MD Service: Hospital Medicine Author Type: Physician Type: Consult Progress Note Filed: 01/07/2023 12:36 PM Note Text: DEPARTMENT OF HOSPITAL MEDICINE PROGRESS NOTE SERVICE DATE: 01/07/2023 [facility] Medicine/Primary Attending: Carly Ramirez MD NIGHT AND WEEKEND COVERAGE: After 7pm please page 0535 SUBJECTIVE: resting in bed , no complaints [...] not on file) Coronary artery disease involving enterprise coronary artery of enterprise heart (POA: Status not on file) S/P [...] from home with mechanical fall transferred from [facility]. He does have a wound on [...] supplemen (more content not included)... Normal [facility] CONSULT PROG HNO ID: [id number] Author: Priscilla Morgan APRN.METAL BONDING WORKER Service: Wound/Ostomy Author Type: Nurse Practitioner Type: Consult Progress Note Filed: 01/07/2023 1:20 PM Note Text: WOUND CARE SERVICE PROGRESS WIDE AREA NETWORK ADMINISTRATOR NOTE SERVICE DATE: 01/07/2023 SERVICE TIME: 10:00 [...] wound Subjective HISTORY OF PRESENT ILLNESS: Mr. Blank is a 82 year old male who is seen today with Kathi Hernandez, Wound/finance vice president, to apply NPWT wound vac to left [...] 01/07/2023 10:07 AM Wound Image Site Assessment Red;[place];Black Adelina-Wound Assessment Edema;[place] Shape irregular Wound Length (cm) 7.1 cm [...] Status Authorizing Provider 01/07/23 1304 WOUND VAC ([place], [place]) Routine Active Priscilla Morgan APRN.METAL BONDING WORKER - Site:: Left foot - Target Pressure [...] Authorizing Provider 01/03/23 1542 DRESSING CARE (SPECIFY) ([place]) Routine Active Perez, Bing E, MD - Specify:: xeroform to skin tears left elbow (more content not included)... Normal [facility] THERAPY NTon 01-07-2023 THERAPY NT HNO ID: [id number] Author: Samantha Hoffmann PT Service: Physical Therapy Author Type: Physical Therapist Type: Therapy (PT/OT/Speech/Resp) Filed: 01/07/2023 11:03 AM Note Text: Physical Therapy Treatment SERVICE DATE: 01/07/2023 SERVICE TIME: 1030 to 1054 ROOM: [place] [id number] Recommended Discharge Disposition: Subacute/SNF Recommended Discharge Disposition [...] P (more content not included)... Normal [facility] Basic metabolic 2000 panelon 01-06-2023 Anion gap [Moles/Vol] 9 mmol/L Normal 9-18 [facility] Comment on above: Order Comment: Speci men Type: BLOOD SPECIMEN Ordering Facility: [facility] Address: [address] [address] Performed By: #### 5 8410-2 #### [facility] CLIA [id number] 1 [place] [address] [place] Calcium [Mass/Vol] 8.5 mg/dL Normal 8.5-10.2 [facility] Comment on above: Order Comment: Speci men Type: BLOOD SPECIMEN Ordering Facility: [facility] Address: [address] [place] [address] Performed By: #### 5 8410-2 #### [facility] CLIA [id number] [address] [place] Chloride [Moles/Vol] 103 mmol/L Normal 97-105 [facility] Comment on above: Order Comment: Speci men Type: BLOOD SPECIMEN Ordering Facility: [facility] Address: [address] [place] [address] Performed By: #### 5 8410-2 #### [facility] CLIA [id number] [address] [place] CO2 [Moles/Vol] 22 mmol/L Normal 22-30 [facility] Comment on above: Order Comment: Speci men Type: BLOOD SPECIMEN Ordering Facility: [facility] Address: [address] [address] Performed By: #### 5 8410-2 #### [facility] CLIA [id number] [address] [place] Creatinine [Mass/Vol] 2.47 mg/dL High 0.73-1.22 [facility] Comment on above: Order Comment: Speci men Type: BLOOD SPECIMEN Ordering Facility: [facility] Address: [address] [place] [address] Performed By: #### 5 8410-2 #### [facility] CLIA [id number] 1 [place] [address] [place] ESTIMATED GLOMERULAR FILTRATION RATE 26 mL/min/1.73m??? Low >=60 [facility] Comment on above: Order Comment: Jamesheather barnard Type: BLOOD SPECIMEN Ordering Facility: [facility] Address: [address] [place] [address] Result Comment: Lindsay mated Glomerular Filtration Rate [...] GFR. Performed By: #### 5 8410-2 #### [facility] CLIA [id number] 1 [place] [address] [place] Glucose [Mass/Vol] 117 mg/dL High 74-99 [facility] Comment on above: Order Comment: Specheather barnard Type: BLOOD SPECIMEN Ordering Facility: [facility] Address: [address] [place] [address] Result Comment: The [place] Diabetes Association (ADA) provides guidance for cutoff [...] Standards of Medical Care in Diabetes 2016, [place] Diabetes Association. Diabetes Care. 2016.39(Suppl 1). Performed By: #### 5 8410-2 #### [facility] CLIA [id number] 1 [place] [address] [place] Potassium [Moles/Vol] 4.4 mmol/L Normal 3.7-5.1 [facility] Comment on above: Order Comment: Speci men Type: BLOOD SPECIMEN Ordering Facility: [facility] Address: [address] [place] [address] Performed By: #### 5 8410-2 #### [facility] CLIA [id number] [address] STATES OF [facility] Sodium [Moles/Vol] 134 mmol/L Low 136-144 [facility] Comment on above: Order Comment: Speci men Type: BLOOD SPECIMEN Ordering Facility: [facility] Address: [address] [place] [address] Performed By: #### 5 8410-2 #### [facility] CLIA [id number] [address] [place] [facility] Urea nitrogen [Mass/Vol] 40 mg/dL High 9-24 [facility] Comment on above: Order Comment: Speci men Type: BLOOD SPECIMEN Ordering Facility: [facility] Address: [address] [place] [address] Performed By: #### 5 8410-2 #### [facility] CLIA [id number] [address] [place] [facility] CBC panel Auto (Bld)on 01-06 Erythrocyte distribution width (RBC) [Ratio] 15.3 % High 11.5-15.0 [facility] Comment on above: Order Comment: Speci men Type: BLOOD SPECIMEN Ordering Facility: [facility] Address: [address] [place] [address] Performed By: #### 5 8410-2 #### [facility] CLIA [id number] [address] Hematocrit (Bld) [Volume fraction] 25.5 % Low 39.0-51.0 [facility] Comment on above: Order Comment: Speci men Type: BLOOD SPECIMEN Ordering Facility: [facility] Address: [address] [place] [address] Performed By: #### 5 8410-2 #### [facility] CLIA [id number] [address] Hemoglobin (Bld) [Mass/Vol] 8.0 g/dL Low 13.0-17.0 [facility] Comment on above: Order Comment: Speci men Type: BLOOD SPECIMEN Ordering Facility: [facility] Address: [address] [place] [address] Performed By: #### 5 8410-2 #### [facility] CLIA [id number] [address] MCH (RBC) [Entitic mass] 31.5 pg Normal 26.0-34.0 [facility] Comment on above: Order Comment: Speci men Type: BLOOD SPECIMEN Ordering Facility: [facility] Address: [address] [place] [address] Performed By: #### 5 8410-2 #### [facility] CLIA [id number] [address] MCHC (RBC) [Mass/Vol] 31.4 g/dL Normal 30.5-36.0 [facility] Comment on above: Order Comment: Speci men Type: BLOOD SPECIMEN Ordering Facility: [facility] Address: [address] [place] [address] Performed By: #### 5 8410-2 #### [facility] CLIA [id number] [address] MCV (RBC) [Entitic vol] 100.4 fL High 80.0-100.0 [facility] Comment on above: Order Comment: Speci men Type: BLOOD SPECIMEN Ordering Facility: [facility] Address: [address] [place] [address] Performed By: #### 5 8410-2 #### [facility] CLIA [id number] [address] Nucleated RBC (Bld) [#/Vol] 10*3/uL Normal <0.01 [facility] Comment on above: Order Comment: Speci men Type: BLOOD SPECIMEN Ordering Facility: [facility] Address: [address] [place], [place] [id number] Performed By: #### 5 8410-2 #### [facility] CLIA [id number] [address] Platelet mean volume (Bld) [Entitic vol] 9.5 fL Normal 9.0-12.7 [facility] Comment on above: Order Comment: Speci men Type: BLOOD SPECIMEN Ordering Facility: [facility] Address: [address] [place] [address] Performed By: #### 5 8410-2 #### [facility] CLIA [id number] [address] Platelets (Bld) [#/Vol] 151 10*3/uL Normal 150-400 [facility] Comment on above: Order Comment: Speci men Type: BLOOD SPECIMEN Ordering Facility: [facility] Address: [address] [place] [address] Performed By: #### 5 8410-2 #### [facility] CLIA [id number] [address] RBC (Bld) [#/Vol] 2.54 10*6/uL Low 4.20-6.00 [facility] Comment on above: Order Comment: Speci men Type: BLOOD SPECIMEN Ordering Facility: [facility] Address: [address] [place] [address] Performed By: #### 5 8410-2 #### [facility] CLIA [id number] [address] [place] [facility] WBC (Bld) [#/Vol] 5.33 10*3/uL Normal 3.70-11.00 [facility] Comment on above: Order Comment: Speci men Type: BLOOD SPECIMEN Ordering Facility: [facility] Address: [address] [place] [address] Performed By: #### 5 8410-2 #### [facility] CLIA [id number] [address] Erythrocyte distribution width (RBC) [Ratio] 14.4 % Normal 11.5-15.0 [facility] Comment on above: Order Comment: Speci men Type: BLOOD SPECIMEN Ordering Facility: [facility] Address: [address] [place] [address] Performed By: #### 5 8410-2 #### [facility] CLIA [id number] [address] OF [facility] Hematocrit (Bld) [Volume fraction] 22.7 % Low 39.0-51.0 [facility] Comment on above: Order Comment: Speci men Type: BLOOD SPECIMEN Ordering Facility: [facility] Address: [address] [place] [address] Performed By: #### 5 8410-2 #### [facility] CLIA [id number] [address] [place] Hemoglobin (Bld) [Mass/Vol] 6.8 g/dL Low 13.0-17.0 [facility] Comment on above: Order Comment: Speci men Type: BLOOD SPECIMEN Ordering Facility: [facility] Address: [address] [place] [address] Performed By: #### 5 8410-2 #### [facility] CLIA [id number] [address] OF [facility] MCH (RBC) [Entitic mass] 30.9 pg Normal 26.0-34.0 [facility] Comment on above: Order Comment: Speci men Type: BLOOD SPECIMEN Ordering Facility: [facility] Address: [address] [place] [address] Performed By: #### 5 8410-2 #### [facility] CLIA [id number] [address] [place] MCHC (RBC) [Mass/Vol] 30.0 g/dL Low 30.5-36.0 [facility] Comment on above: Order Comment: Speci men Type: BLOOD SPECIMEN Ordering Facility: [facility] Address: [address] [place] [address] Performed By: #### 5 8410-2 #### [facility] CLIA [id number] [address] MCV (RBC) [Entitic vol] 103.2 fL High 80.0-100.0 [facility] Comment on above: Order Comment: Speci men Type: BLOOD SPECIMEN Ordering Facility: [facility] Address: [address] [place] [address] Performed By: #### 5 8410-2 #### [facility] CLIA [id number] [address] Nucleated RBC (Bld) [#/Vol] 10*3/uL Normal <0.01 [facility] Comment on above: Order Comment: Speci men Type: BLOOD SPECIMEN Ordering Facility: [facility] Address: [address] [place] [address] Performed By: #### 5 8410-2 #### [facility] CLIA [id number] [address] Platelet mean volume (Bld) [Entitic vol] 9.5 fL Normal 9.0-12.7 [facility] Comment on above: Order Comment: Speci men Type: BLOOD SPECIMEN Ordering Facility: [facility] Address: [address] [place] [address] Performed By: #### 5 8410-2 #### [facility] CLIA [id number] [address] Platelets (Bld) [#/Vol] 141 10*3/uL Low 150-400 [facility] Comment on above: Order Comment: Speci men Type: BLOOD SPECIMEN Ordering Facility: [facility] Address: [address] [place] [address] Performed By: #### 5 8410-2 #### [facility] CLIA [id number] [address] [place] RBC (Bld) [#/Vol] 2.20 10*6/uL Low 4.20-6.00 [facility] Comment on above: Order Comment: Speci men Type: BLOOD SPECIMEN Ordering Facility: [facility] Address: [address] [place] [address] Performed By: #### 5 8410-2 #### [facility] CLIA [id number] [address] WBC (Bld) [#/Vol] 5.70 10*3/uL Normal 3.70-11.00 [facility] Comment on above: Order Comment: Speci men Type: BLOOD SPECIMEN Ordering Facility: [facility] Address: [address] [place] [address] Performed By: #### 5 8410-2 #### [facility] CLIA [id number] [address] CONFIRM BLOOD TYPEon 023 ABO O Normal [facility] Comment on above: Order Comment: Speci men Type: BLOOD SPECIMEN Ordering Facility: [facility] Address: [address] [place] [address] Performed By: #### C ONABO #### [facility] CLIA [id number] [address] Rh Nom (Bld) Positive Normal [facility] Comment on above: Order Comment: Speci men Type: BLOOD SPECIMEN Ordering Facility: [facility] Address: [address] [place] [address] Performed By: #### C ONABO #### [facility] CLIA [id number] [address] [place] [address] CONSULTon 01-06-2023 CONSULT HNO ID: [id number] Author: Michael Nick DPM Service: Podiatry Author [...] limited (more content not included)... Normal [facility] CONSULT PROGon 01-06-2023 CONSULT PROG HNO ID: [id number] Author: Carly Sinclair MD Service: Hospital Medicine Author Type: Physician Type: Consult Progress Note Filed: 01/06/2023 1:21 PM Note Text: DEPARTMENT OF HOSPITAL MEDICINE PROGRESS NOTE SERVICE DATE: 01/06/2023 Hospital Medicine/Primary Attending: Carly Ramirez MD NIGHT AND WEEKEND COVERAGE: After 7pm please page [phone] SUBJECTIVE: resting in bed , no complaints [...] not on file) Coronary artery disease involving enterprise coronary artery of enterprise heart (POA: Status not on file) S/P [...] NAME: Amaury Blank PAGER/CONTACT #: rosanna team jesica Normal [facility] THERAPY NTon 01-06-2023 THERAPY NT HNO ID: [id number] Author: Dov Newton PTA Service: Physical Therapy Author Type: Packing Line Operator Type: Therapy (PT/OT/Speech/Resp) Filed: 01/06/2023 2:49 PM Note Text: Attestation signed by Samantha Hoffmann PT at 01/06/2023 3:37 PM I reviewed and agree with the documentation corresponding to this therapy visit. SIGNATURE: Samantha Hoffmann PT DATE: January 06, 2023 TIME: 3:37 PM Physical Therapy Treatment SERVICE DATE: 01/06/2023 SERVICE TIME: 1351 to 1410 ROOM: [id number] Recommended Discharge Disposition: Subacute/SNF Recommended Discharge Disposition [...] Req (more content not included)... Normal [facility] TYPE + SCREENon 01-06-2023 ABO O Normal [facility] Comment on above: Order Comment: Speci men Type: BLOOD SPECIMEN Ordering Facility: [facility] Address: [address] [place] [id number] Performed By: #### T SCR #### [facility] CLIA [id number] [address] HISTORICAL AB SCR STATUS Negative Normal [facility] Comment on above: Order Comment: Speci men Type: BLOOD SPECIMEN Ordering Facility: [facility] Address: [address] [place] [address] Performed By: #### T SCR #### [facility] CLIA [id number] [address] Rh Nom (Bld) Positive Normal [facility] Comment on above: Order Comment: Speci men Type: BLOOD SPECIMEN Ordering Facility: [facility] Address: [address] [place] [address] Performed By: #### T SCR #### [facility] CLIA [id number] [address] TYPE AND SCREEN EXPIRATION 01/09/2023 23:59 Normal [facility] Comment on above: Order Comment: Speci men Type: BLOOD SPECIMEN Ordering Facility: [facility] Address: [address] [place] [address] Performed By: #### T SCR #### [facility] CLIA [id number] [address] ANES POSTPROC EVALon 01-05- 023 ANES POSTPROC EVAL HNO ID: [id number] Author: Bert Bellamy MD Service: Anesthesiology Author Type: Physician Type: Anesthesia Postprocedure Evaluation Filed: 01/05/2023 9:07 AM Note Text: POST ANESTHESIA EVALUATION NOTE : 1940 Procedure Summary Date: 01/04/23 Room / Location: [facility] OR / [facility] OR Anesthesia Start: 1446 Anesthesia Stop: 162 [...] January 05, 2023 TIME: 9:07 AM CSN: [id number] Normal [facility] Basic metabolic 2000 panelon 01-05-2023 Anion gap [Moles/Vol] 10 mmol/L Normal 9-18 [facility] Comment on above: Order Comment: Speci akil Type: BLOOD SPECIMEN Ordering Facility: [facility] Address: [address] [place] [address] Performed By: #### 5 8410-2 #### [facility] CLIA [id number] [address] [place] [address] [place] Calcium [Mass/Vol] 8.5 mg/dL Normal 8.5-10.2 [facility] Comment on above: Order Comment: Jamesi akil Type: BLOOD SPECIMEN Ordering Facility: [facility] Address: [address] [place] [address] Performed By: #### 5 8410-2 #### [facility] CLIA [id number] [address] [place] [address] [place] Chloride [Moles/Vol] 101 mmol/L Normal 97-105 [facility] Comment on above: Order Comment: Speci men Type: BLOOD SPECIMEN Ordering Facility: [facility] Address: [address] [place] [address] Performed By: #### 5 8410-2 #### [facility] CLIA [id number] [address] OF [facility] CO2 [Moles/Vol] 21 mmol/L Low 22-30 [facility] Comment on above: Order Comment: Speci men Type: BLOOD SPECIMEN Ordering Facility: [facility] Address: [address] [place] [address] Performed By: #### 5 8410-2 #### [facility] CLIA [id number] [address] Creatinine [Mass/Vol] 2.27 mg/dL High 0.73-1.22 [facility] Comment on above: Order Comment: Speci men Type: BLOOD SPECIMEN Ordering Facility: [facility] Address: [address] [place] [address] Performed By: #### 5 8410-2 #### [facility] CLIA [id number] [address] [place] [address] ESTIMATED GLOMERULAR FILTRATION RATE 28 mL/min/1.73m??? Low >=60 [facility] Comment on above: Order Comment: Speci men Type: BLOOD SPECIMEN Ordering Facility: [facility] Address: [address] [place] [address] Result Comment: Lindsay mated Glomerular Filtration Rate [...] GFR. Performed By: #### 5 8410-2 #### [facility] CLIA [id number] [address] [place] Glucose [Mass/Vol] 101 mg/dL High 74-99 [facility] Comment on above: Order Comment: Migel barnard Type: BLOOD SPECIMEN Ordering Facility: [facility] Address: [address] [place] [address] Result Comment: The [place] Diabetes Association (ADA) provides guidance for cutoff [...] Standards of Medical Care in Diabetes 2016, [place] Diabetes Association. Diabetes Care. 2016.39(Suppl 1). Performed By: #### 5 8410-2 #### [facility] CLIA [id number] [address] [place] [address] [place] Potassium [Moles/Vol] 5.3 mmol/L High 3.7-5.1 [facility] Comment on above: Order Comment: Migel barnard Type: BLOOD SPECIMEN Ordering Facility: [facility] Address: [address] [place] [address] Performed By: #### 5 8410-2 #### [facility] CLIA [id number] 1 [place] [address] [place] Sodium [Moles/Vol] 132 mmol/L Low 136-144 [facility] Comment on above: Order Comment: Migel barnard Type: BLOOD SPECIMEN Ordering Facility: [facility] Address: [address] [place] [address] Performed By: #### 5 8410-2 #### [facility] CLIA [id number] 1 [place] [address] [place] Urea nitrogen [Mass/Vol] 40 mg/dL High 9-24 [facility] Comment on above: Order Comment: Migel barnard Type: BLOOD SPECIMEN Ordering Facility: [facility] Address: [address] [address] Performed By: #### 5 8410-2 #### [facility] CLIA [id number] [address] CBC panel Auto (Bld)on 01-05 Erythrocyte distribution width (RBC) [Ratio] 14.5 % Normal 11.5-15.0 [facility] Comment on above: Order Comment: Speci men Type: BLOOD SPECIMEN Ordering Facility: [facility] Address: [address] [address] Performed By: #### 5 8410-2 #### [facility] CLIA [id number] [address] Hematocrit (Bld) [Volume fraction] 24.0 % Low 39.0-51.0 [facility] Comment on above: Order Comment: Speci men Type: BLOOD SPECIMEN Ordering Facility: [facility] Address: [address] [place] [address] Performed By: #### 5 8410-2 #### [facility] CLIA [id number] [address] Hemoglobin (Bld) [Mass/Vol] 7.5 g/dL Low 13.0-17.0 [facility] Comment on above: Order Comment: Speci men Type: BLOOD SPECIMEN Ordering Facility: [facility] Address: [address] [place] [address] Performed By: #### 5 8410-2 #### [facility] CLIA [id number] [address] MCH (RBC) [Entitic mass] 31.8 pg Normal 26.0-34.0 [facility] Comment on above: Order Comment: Speci men Type: BLOOD SPECIMEN Ordering Facility: [facility] Address: [address] [place] [address] Performed By: #### 5 8410-2 #### [facility] CLIA [id number] [address] [place] [address] [place] MCHC (RBC) [Mass/Vol] 31.3 g/dL Normal 30.5-36.0 [facility] Comment on above: Order Comment: Speci men Type: BLOOD SPECIMEN Ordering Facility: [facility] Address: [address] [address] Performed By: #### 5 8410-2 #### [facility] CLIA [id number] [address] OF [facility] MCV (RBC) [Entitic vol] 101.7 fL High 80.0-100.0 [facility] Comment on above: Order Comment: Speci men Type: BLOOD SPECIMEN Ordering Facility: [facility] Address: [address] [address] Performed By: #### 5 8410-2 #### [facility] CLIA [id number] [address] Nucleated RBC (Bld) [#/Vol] 10*3/uL Normal <0.01 [facility] Comment on above: Order Comment: Speci men Type: BLOOD SPECIMEN Ordering Facility: [facility] Address: [address] [address] Performed By: #### 5 8410-2 #### [facility] CLIA [id number] [address] [place] Platelet mean volume (Bld) [Entitic vol] 10.0 fL Normal 9.0-12.7 [facility] Comment on above: Order Comment: Speci men Type: BLOOD SPECIMEN Ordering Facility: [facility] Address: [address] [address] Performed By: #### 5 8410-2 #### [facility] CLIA [id number] [address] [place] Platelets (Bld) [#/Vol] 181 10*3/uL Normal 150-400 [facility] Comment on above: Order Comment: Speci men Type: BLOOD SPECIMEN Ordering Facility: [facility] Address: [address] [address] Performed By: #### 5 8410-2 #### [facility] CLIA [id number] [address] RBC (Bld) [#/Vol] 2.36 10*6/uL Low 4.20-6.00 [facility] Comment on above: Order Comment: Speci men Type: BLOOD SPECIMEN Ordering Facility: [facility] Address: [address] [place] [address] Performed By: #### 5 8410-2 #### [facility] CLIA [id number] [address] WBC (Bld) [#/Vol] 8.02 10*3/uL Normal 3.70-11.00 [facility] Comment on above: Order Comment: Speci men Type: BLOOD SPECIMEN Ordering Facility: [facility] Address: [address] [place] [address] Performed By: #### 5 8410-2 #### [facility] CLIA [id number] [address] CONSULT PROGon 01-05-2023 CONSULT PROG HNO ID: [id number] Author: Carly Sinclair MD Service: Hospital Medicine Author Type: Physician Type: Consult Progress Note Filed: 01/05/2023 2:52 PM Note Text: DEPARTMENT OF HOSPITAL MEDICINE PROGRESS NOTE SERVICE DATE: 01/05/2023 Hospital Medicine/Primary Attending: Carly Ramirez MD NIGHT AND WEEKEND COVERAGE: After 7pm please page [phone] SUBJECTIVE: resting in bed , no complaints [...] not on file) Coronary artery disease involving enterprise coronary artery of enterprise heart (POA: Status not on file) S/P [...] PAGER/CONTACT #: sound team color Normal [facility] MRI BRAIN WO/W IVCONon 01-05 MRI BRAIN WO/W IVCON * * *Final Report* * * DATE OF EXAM: Jan 05 2023 3:15PM [facility] 0295 - MRI BRAIN WO/W IVCON / PROCEDURE [...] suggest the latter within the medical record. [employer] Weapons Sergeant: ANABEL Transcribe Date/Time: Jan 05 2023 8:48P Dictated by : CHARO LACEY MD This examination was interpreted and the report reviewed and electronically signed by: CHARO LACEY MD on Jan 05 2023 9:04PM EST [id number] Normal [facility] NUTRITIONon 01-05-2023 NUTRITION HNO ID: [id number] Author: Grazyna Ray RD Service: Nutrition Therapy [...] evidenced by: Patient/family self-report Estimated kilocalorie needs: 5780-2948 Calorie Calculation Method: 25-30 kcals/kg Estimated protein [...] 05, 2023 TIME: 12:42 PM Normal [facility] THERAPY NTon 01-05-2023 THERAPY NT HNO ID: [id number] Author: Kimberly Corey OTR/Gunner Service: Occupational Therapy Author Type: Occupational Therapist Type: Therapy (PT/OT/Speech/Resp) Filed: 01/05/2023 1:41 PM Note Text: Occupational Therapy Evaluation SERVICE DATE: 01/05/2023 SERVICE TIME: 1030 to 1058 ROOM: [address] [address] Recommended Discharge Disposition: Subacute/SNF Recommended Discharge Disposition [...] AL 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 Normal [facility] THERAPY NT HNO ID: [id number] Author: Hannah Fortune, PT Service: Physical Therapy Author Type: Physical Therapist Type: Therapy (PT/OT/Speech/Resp) Filed: 01/05/2023 1:02 PM Note Text: Physical Therapy Evaluation SERVICE DATE: 01/05/2023 SERVICE TIME: 1012 to 1035 ROOM: [address] [address] Recommended Discharge Disposition: Subacute/SNF Recommended Discharge Disposition [...] Walker Gait Distance (feet): 3' x 1 vuk-dw-synxa cues for walker safety, step-to pattern to [...] or move without loss of balance JH-HLM: 5: Standing (1 or more minutes) Learning/Educational Needs: Discharge Plan, Functional Activities/Mobility, Rehabilitation Techniques and Procedures, Safety Goals for Plan of Care: Patient/Caregiver Goals: Walk Able to Perform HEP with: Set Up Transfer Supine to/from Sit with: Minimal Assistance (more content not included)... Normal [facility] 25(OH)D3 SerPl-ncon 2022 25-hydroxyvitamin D3 [Mass/Vol] 13.8 ng/mL Low >=30.0 [facility] Comment on above: Order Comment: Speci men Type: BLOOD SPECIMEN Ordering Facility: [facility] Address: [address] [place] [id number] Result Comment: Clas sification of 25 OH Vitamin D status: Deficiency: <= 20.0 ng/ml. Insufficiency: 21.0-29.0 ng/ml. Sufficiency: >= 30.0 ng/ml. Performed By: #### 5 8410-2 #### [facility] CLIA [id number] [address] [place] [address] STATES OF [facility] ANES PRE-OPon 01-04-2023 ANES PRE-OP HNO ID: [id number] Author: Bert Bellamy MD Service: Anesthesiology Author Type: Physician Type: Anesthesia Preprocedure Evaluation Filed: 01/04/2023 2:21 PM Note Text: ANESTHESIOLOGY DAY OF SURGERY NOTE : 1940 Procedure Information Date/Time: 01/04/23 1338 Procedure: INSERTION NAIL / JESSY INTERMEDULLARY FEMUR WITH C-ARM (Left: Hip) Location: AR OR / AR OR Surgeons: Errol Rod MD Estimated body mass index is 22.24 kg/m? as calculated from the following: Height as of this encounter: 177.8 cm (5' 10). Weight as of this encounter: 70.3 kg (154 lb 15.7 oz). Most recent hematocrit and potassium results: Hematocrit 31.0 01/03/2023 Potassium 5.3 01/03/2023 Relevant Problems CARDIO (+) Atrial fibrillation (HCC) (+) Coronary artery disease involving enterprise coronary artery of enterprise heart (+) Primary hypertension (+) S/P CABG [...] and consent discussed: yes. Patient / Responsible Green Party agrees to proceed: yes Patient / [...] 04, 2023 MRN (more content not included)... [facility] BRIEF OP NOTon 01-04-2023 BRIEF OP NOT HNO ID: [id number] Author: Errol Rod MD Service: Orthopaedic Surgery Author Type: Physician Type: Brief Op Note Filed: 01/04/2023 3:55 PM Note Text: BRIEF OPERATIVE / PROCEDURE NOTE TOTAL HIP ARTHROPLASTY LOG ID: [id number] Surgery/Procedure Date: 01/04/2023 Incision/Procedure Start Time: 3:21 PM Incision Close/Procedure End Time: Surgeon(s)/Proceduralist(s) and Retail Business Development Manager(s): Surgeon(s) and Role: * Errol Rod MD [...] DATE: January 04, 2023 TIME: 3:54 PM [facility] CONSULTon 01-04-2023 CONSULT HNO ID: [id number] Author: João Sales MD Service: Clinical Cardiology [...] 80% saphenous venous graft to PDA around 2017)), hypertension, hyperlipidemia, COPD, atrial fibrillation. He was admitted to [facility] with a ground-level fall when he was trying to turn using his walker. He is a senior living resident. He normally sees Dr. Borges for his cardiac care at [facility]. Apparently, he was on oral anticoagulation for [...] angiography on 10/06/[address] Mosqueda at [facility] revealed patent ZARAGOZA to the LAD, [...] (1.78 (more content not included)... Normal [facility] CONSULT PROGon 01-04-2023 CONSULT PROG HNO ID: [id number] Author: Carly Sinclair MD Service: Hospital Medicine Author Type: Physician Type: Consult Progress Note Filed: 01/04/2023 3:03 PM Note Text: DEPARTMENT OF HOSPITAL MEDICINE PROGRESS NOTE SERVICE DATE: 01/04/2023 SERVICE TIME: 2:56 PM Hospital Medicine/Primary Attending: Carly Ramirez MD NIGHT AND WEEKEND COVERAGE: After 7pm please page [phone] SUBJECTIVE: resting in bed , no complaints [...] not on file) Coronary artery disease involving enterprise coronary artery of enterprise heart (POA: Status not on file) S/P [...] 04, 2023 TIME: 2:56 PM PAGER/CONTACT #: rosanna team color Normal [facility] ECG COMPLETEon 01-04-2023 ECG COMPLETE Ventricular Rate : 6 4 BPM Atrial Rate : 64 BPM P-R Interval : 208 ms QRS Duration : 128 ms Q-T Interval : 460 ms QTC Calculation(Bazett) : 474 ms Calculated P [place] : -7 degrees Calculated R [place] : -43 degrees Calculated T [place] : 60 degrees NORMAL SINUS RHYTHM LEFT AXIS DEVIATION INCOMPLETE RIGHT BUNDLE BRANCH BLOCK MINIMAL VOLTAGE CRITERIA FOR LVH, MAY BE NORMAL VARIANT ( [place] product ) CANNOT RULE OUT SEPTAL INFARCT , AGE UNDETERMINED INFERIOR INFARCT (CITED ON OR BEFORE 03-JAN-2023) ABNORMAL ECG WHEN COMPARED WITH ECG OF 03-JAN-2023 18:17, [place] INTERVAL HAS DECREASED MINIMAL CRITERIA FOR SEPTAL INFARCT ARE NOW PRESENT Confirmed by MD SALES VINAYAK ([id number]) on 01/06/2023 3:19:36 PM NAME : AMAURY BLANK PID : [id number] : 1940 Gender : Male Race : ORD : [id number] Procedure Date : Jan 04 2023 06:32:58 Edit Date : Jan 06 2023 15:19:37 Diagnosis: NORMAL SINUS RHYTHM LEFT AXIS DEVIATION INCOMPLETE RIGHT BUNDLE BRANCH BLOCK MINIMAL VOLTAGE CRITERIA FOR LVH, MAY BE NORMAL VARIANT ( [employer] product ) CANNOT RULE OUT SEPTAL INFARCT , AGE UNDETERMINED INFERIOR INFARCT (CITED ON OR BEFORE 03-JAN-2023) ABNORMAL ECG WHEN COMPARED WITH ECG OF 03-JAN-2023 18:17, [place] INTERVAL HAS DECREASED MINIMAL CRITERIA FOR SEPTAL INFARCT ARE NOW PRESENT Confirmed by MD SALES VINAYAK ([id number]) on 01/06/2023 3:19:36 PM Test Reason : Pre-OP Location : 152 : 5200B 5260 Overread By : MD SALES VINAYAK Edited By : MD SALES VINAYAK Referred By : , Acquired by : KASI LEMA [facility] ED NOTEon 01-04-2023 ED NOTE HNO ID: [id number] Author: Comfort Dias RN Service: ? Author Type: Registered Nurse Type: ED Notes Filed: 01/04/2023 12:05 AM Note Text: Up with [facility] ED NOTE HNO ID: [id number] Author: Comfort Dias RN Service: ? Author Type: Registered Nurse Type: ED Notes Filed: 01/04/2023 12:04 AM Note Text: Up with [facility] [facility] ED NOTE HNO ID: [id number] Author: Comfort Dias RN Service: ? Author Type: Registered Nurse Type: ED Notes Filed: 01/04/2023 12:02 AM Note Text: [facility] OPERATIVE NOon 01-04-2023 OPERATIVE NO HNO ID: [id number] Author: Errol Rod MD Service: Orthopaedic Surgery Author Type: Physician Type: Operative Report Filed: 01/05/2023 5:52 PM Note Text: OPERATIVE/PROCEDURE REPORT LOG ID: [id number] SURGERY/PROCEDURE DATE: 01/04/2023 INCISION/PROCEDURE START TIME: 3:21 PM INCISION CLOSE/PROCEDURE END TIME: 4:12 PM SURGEON(S)/PROCEDURALIST(S) AND COLD STORAGE WORKER(S): Surgeon(s) and Role: * Errol Rod MD - Primary * Chris Franco MD - Resident - Assisting * Ricky Quintana MD - Resident - Assisting No Additional Staff SURGERY/PROCEDURE(S): 1) Insertion of left Hip Intramedullary Femoral Nail ANESTHESIA: 1) Choice - Anesthesia Consult ANTIBIOTICS: 1) Vancomycin 1 g SURGERY/PROCEDURE DETAILS: 82 year old male presented to [facility] on 01/03/2023 for evaluation after [...] time-out was then performed in accordance with [facility] policy. The patient was then [...] Implant Name Type Inv. Item Serial No. Medical Service Technician Lot No. LRB No. Used Action NAIL TFN-ADVANCED 10MM 130D SHORT GOLD GREEN IVERSON TI-15MO 170MM - [id number] Nail NAIL TFN-ADVANCED 10MM 130D SHORT GOLD GREEN IVERSON TI-15MO 170MM SYNTHES TRAUMA [id number] Left 1 Implanted SCREW TFN-ADVANCED 10.35MM 3.5MM IVERSON [id number] 90MM BONE CANNULATED - [id number] Screw SCREW TFN-ADVANCED 10.35MM 3.5MM IVERSON [id number] 90MM BONE CANNULATED SYNTHES TRAUMA Left 1 Implanted SCREW 5MM 4.3MM T25 FULL THREAD TITANIUM 34MM BONE LOCK SELF TAP BLUNT TIP - [id number] Screw SCREW 5MM 4.3MM T25 FULL THREAD TITANIUM 34MM BONE LOCK SELF TAP BLUNT TIP SYNTHES [facility] SYNTHES [facility] Left 1 Implanted DRAINS: None COMPLICATIONS: None POST-OPERATIVE PLAN: -Management per primary -Pain control -DVT prophylaxis: Per primary -Diet: Per primary -Dressings: Mepilex dressings for 7 to 10 days -Antibiotics: Vancomycin 1 g x 1 dose -Ice left hip (more content not included)... Normal [facility] THERAPY NTon 01-04-2023 THERAPY NT HNO ID: [id number] Author: Tremayne Mckeon PT Service: Physical Therapy Author Type: Physical Therapist Type: Therapy (PT/OT/Speech/Resp) Filed: 01/04/2023 12:28 PM Note Text: PHYSICAL THERAPY MISSED VISIT SERVICE DATE: 01/04/2023 SERVICE TIME: 1227 to 1227 ROOM: [address] [address] Patient not seen due to Test / Procedure (OR today). Will evaluate when able/appropriate. SIGNATURE: Tremayne Mckeon PT PATIENT NAME: Amaury Blank DATE: January 04, 2023 TIME: 12:28 PM Normal [facility] THERAPY NT HNO ID: [id number] Author: ROSALIO Alvarez/Gunner Service: Occupational Therapy Author Type: Occupational Therapist Type: Therapy (PT/OT/Speech/Resp) Filed: 01/04/2023 8:09 AM Note Text: OCCUPATIONAL THERAPY MISSED VISIT SERVICE DATE: 01/04/2023 SERVICE TIME: 0809 to 0809 ROOM: [address] [address] Patient not seen due to Test / Procedure (OR today). SIGNATURE: ROSALIO Alvarez/Gunner PATIENT NAME: Amaury Blank DATE: January 04, 2023 TIME: 8:09 AM Normal [facility] XR HIP 2V AP/ LAT LTon 01-04 XR HIP 2V AP/ LAT LT * * *Final Report* * * DATE OF EXAM: Jan 04 2023 4:16PM [facility] 5279 - XR HIP 2V AP/ LAT [...] a femoral neck fracture. IMPRESSION: Intraoperative exam. Special [employer] Weapons Sergeant: [facility] Transcribe Date/Time: Jan 06 2023 7:45A Dictated by : JUWAN NARANJO MD This examination was interpreted and the report reviewed and electronically signed by: JUWAN NARANJO MD on Jan 06 2023 7:46AM EST [id number] Normal [facility] XR PELVIS 1V APon [...] other significant abnormality. IMPRESSION: Unremarkable postoperative appearance [employer] We[employer] Sergeant: [facility] Transcribe Date/Time: Jan 04 2023 6:58P Dictated by : FABIÁN CALVO MD This examination was interpreted and the report reviewed and electronically signed by: FABIÁN CALVO MD on Jan 04 2023 7:00PM EST [id number] Normal [facility] ALLIED HEALTHon 01-03-2023 ALLIED HEALTH HNO ID: [id number] Author: RT Jamey(R) Service: Radiology Author Type: [...] IV DATA: Not applicable SIGNED BY: RT Jamey(R) January 03, 2023 1:14 PM Normal [facility] Absolute lymphocyte countOrd ered By: Lupe Joe on 01-03-2023 Lymphocytes Auto (Unsp spec) [#/Vol] 0.79 10*3/uL 0.83-4.51 [facility] Basic metabolic 2000 panelon 01-03-2023 Anion gap [Moles/Vol] 11 mmol/L Normal 9-18 [facility] Comment on above: Order Comment: Speci men Type: BLOOD SPECIMENOrdering Facility: [facility] Address: [address] [place] [address] Performed By: #### 2 4321-2 ####[facility] [id number] [place] [address] [place] Calcium [Mass/Vol] 9.3 mg/dL Normal 8.5-10.2 [facility] Comment on above: Order Comment: Speci men Type: BLOOD SPECIMENOrdering Facility: [facility] Address: [address] [place] [address] Performed By: #### 2 4321-2 ####[facility] [id number] [place] [address] [place] Chloride [Moles/Vol] 101 mmol/L Normal 97-105 [facility] Comment on above: Order Comment: Speci men Type: BLOOD SPECIMENOrdering Facility: [facility] Address: [address] [place] [address] Performed By: #### 2 4321-2 ####[facility] [id number] [place] [address] [place] CO2 [Moles/Vol] 23 mmol/L Normal 22-30 [facility] Comment on above: Order Comment: Speci men Type: BLOOD SPECIMENOrdering Facility: [facility] Address: [address] [address] Performed By: #### 2 4321-2 ####[facility] [id number] [address] [place] Creatinine [Mass/Vol] 2.19 mg/dL High 0.73-1.22 [facility] Comment on above: Order Comment: Migel barnard Type: BLOOD SPECIMENOrdering Facility: [facility] Address: [address] [place] [address] Performed By: #### 2 4321-2 ####[facility] [id number] [address] ESTIMATED GLOMERULAR FILTRATION RATE 30 mL/min/1.73m??? Low >=60 [facility] Comment on above: Order Comment: Migel akil Type: BLOOD SPECIMENOrdering Facility: [facility] Address: [address] [place] [address] Result Comment: Lindsay mated Glomerular Filtration Rate [...] actual GFR. Performed By: #### 2 4321-2 ####[facility] [id number] [address] Glucose [Mass/Vol] 83 mg/dL Normal 74-99 [facility] Comment on above: Order Comment: Migel akil Type: BLOOD SPECIMENOrdering Facility: [facility] Address: [address] [place] [address] Result Comment: The [place] Diabetes Association (ADA) provides guidance for cutoff [...] Standards of Medical Care in Diabetes 2016, [place] Diabetes Association. Diabetes Care. 2016.39(Suppl 1). Performed By: #### 2 4321-2 ####[facility] [id number] [address] [place] Potassium [Moles/Vol] 5.3 mmol/L High 3.7-5.1 [facility] Comment on above: Order Comment: Speci men Type: BLOOD SPECIMENOrdering Facility: [facility] Address: [address] [place] [address] Performed By: #### 2 4321-2 ####[facility] [id number] [address] STATES OF [facility] Sodium [Moles/Vol] 135 mmol/L Low 136-144 [facility] Comment on above: Order Comment: Speci men Type: BLOOD SPECIMENOrdering Facility: [facility] Address: [address] [place] [address] Performed By: #### 2 4321-2 ####[facility] [id number] [address] [place] Urea nitrogen [Mass/Vol] 38 mg/dL High 9-24 [facility] Comment on above: Order Comment: Speci men Type: BLOOD SPECIMENOrdering Facility: [facility] Address: [address] [place] [address] Performed By: #### 2 4321-2 ####[facility]IA [id number] [place] [address] [place] Basophil percentageOrdered B y: Remus Ungur on 01-03-2023 Basophil percentage 99 mg/dL 74-106 [facility] Basophil percentage 139 mmol/L 136-145 [facility] Basophil percentage 5.0 mmol/L 3.5-5.1 [facility] Basophil percentage 107 mmol/L 98-107 [facility] Basophils (Bld) [#/Vol] 5.9 10*3/uL 4.4-11.0 [facility] Basophils (Bld) [#/Vol] 4.3 10*3/uL 2.0-7.7 [facility] Basophils/100 WBC (Bld) 72.5 % 47-70 [facility] Basophils/100 WBC (Bld) 2.9 % 0-5 [facility] Basophils/100 WBC (Bld) 0.7 % 0-1 [facility] Blood erythrocytes count (nu mber/volume)Ordered By: Lupe Joe on 01-03-2023 RBC (Bld) [#/Vol] 2.96 10*6/uL 4.6-6.2 [facility] Blood hemoglobin measurement (mass/volume)Ordered By: Lupe Joe on 01-03-2023 Hemoglobin (Bld) [Mass/Vol] 9.5 g/dL 13.0-16.5 [facility] Blood lymphocytes/100 leukoc ytesOrdered By: Lupe Joe on 01-03-2023 Lymphocytes/100 WBC (Bld) 13.5 % 19-41 [facility] Blood monocytes/100 leukocyt esOrdered By: Lupe Joe on 01-03-2023 Monocytes/100 WBC (Bld) 9.7 % 0-10 [facility] Blood platelet mean volumeOr dered By: Lupe Joe on 01-03-2023 Platelet mean volume (Bld) [Entitic vol] 9.4 fL 6.2-12.0 [facility] CBC panel Auto (Bld)on 01-03 Erythrocyte distribution width (RBC) [Ratio] 14.5 % Normal 11.5-15.0 [facility] Comment on above: Order Comment: Migel barnard Type: BLOOD SPECIMEN [facility] Facility: [facility] Address: [address] [place] [address] Performed By: #### 5 8410-2 #### [facility] CLIA [id number] [address] [place] [address] [place] Hematocrit (Bld) [Volume fraction] 31.0 % Low 39.0-51.0 [facility] Comment on above: Order Comment: Migel barnard Type: BLOOD SPECIMEN Ordering Facility: [facility] Address: [address] [address] Performed By: #### 5 8410-2 #### [facility] CLIA [id number] [address] Hemoglobin (Bld) [Mass/Vol] 9.9 g/dL Low 13.0-17.0 [facility] Comment on above: Order Comment: Speci men Type: BLOOD SPECIMEN Ordering Facility: [facility] Address: [address] [place] [address] Performed By: #### 5 8410-2 #### [facility] CLIA [id number] [address] MCH (RBC) [Entitic mass] 33.1 pg Normal 26.0-34.0 [facility] Comment on above: Order Comment: Speci men Type: BLOOD SPECIMEN Ordering Facility: [facility] Address: [address] [place] [address] Performed By: #### 5 8410-2 #### [facility] CLIA [id number] [address] MCHC (RBC) [Mass/Vol] 31.9 g/dL Normal 30.5-36.0 [facility] Comment on above: Order Comment: Speci men Type: BLOOD SPECIMEN Ordering Facility: [facility] Address: [address] [place] [address] Performed By: #### 5 8410-2 #### [facility] CLIA [id number] [address] MCV (RBC) [Entitic vol] 103.7 fL High 80.0-100.0 [facility] Comment on above: Order Comment: Speci men Type: BLOOD SPECIMEN [facility]ing Facility: [facility] Address: [address] [place] [address] Performed By: #### 5 8410-2 #### [facility] CLIA [id number] [address] Nucleated RBC (Bld) [#/Vol] 10*3/uL Normal <0.01 [facility] Comment on above: Order Comment: Speci men Type: BLOOD SPECIMEN [facility]ing Facility: [facility] Address: [address] [address] Performed By: #### 5 8410-2 #### [facility] CLIA [id number] [address] [place] Platelet mean volume (Bld) [Entitic vol] 10.5 fL Normal 9.0-12.7 [facility] Comment on above: Order Comment: Speci men Type: BLOOD SPECIMEN [facility]ing [facility] Address: [address] [address] Performed By: #### 5 8410-2 #### [facility] CLIA [id number] [address] [place] Platelets (Bld) [#/Vol] 260 10*3/uL Normal 150-400 [facility] Comment on above: Order Comment: Speci men Type: BLOOD SPECIMEN Ordering Facility: [facility] Address: [address] [address] Performed By: #### 5 8410-2 #### [facility] CLIA [id number] [address] [place] RBC (Bld) [#/Vol] 2.99 10*6/uL Low 4.20-6.00 [facility] Comment on above: Order Comment: Speci men Type: BLOOD SPECIMEN Ordering Facility: [facility] Address: [address] [address] Performed By: #### 5 8410-2 #### [facility] CLIA [id number] [address] [place] WBC (Bld) [#/Vol] 8.44 10*3/uL Normal 3.70-11.00 [facility] Comment on above: Order Comment: Speci men Type: BLOOD SPECIMEN [facility] Address: [address] [place] [address] Performed By: #### 5 8410-2 #### [facility] CLIA [id number] [address] STATES OF ALESSANDRO CONSULTon 01-03-2023 CONSULT HNO ID: [id number] Author: Curt Erwin DO Service: Hospital Medicine [...] from home with mechanical fall transferred from [facility]. Patient reports he was getting up [...] Laterality Date PAST SURGICAL HISTORY OF Right 1967 right hand PAST SURGICAL HISTORY OF Right 2005 right flank chronic inflammed tissue PAST SURGICAL [...] labs and imaging results. See paperwork from [place] Notable findings:hgb-9.5 Cr-2.29 XR L hip- intertrochanteric femur fx CT brain-1.2 cmn hyperdense focus L frontal lobe w/ surrounding vasogenic edema-likely subacute hematoma Impression/Recommendations The patient is (more content not included)... Normal [facility] CONSULT HNO ID: [id number] Author: Renetta Mehta PA-C Service: Neurosurgery Author Type: Physician Retail Business Development Manager Type: Consults Filed: 01/03/2023 4:25 PM Note Text: Attestation signed by Cody Westfall MD, PhD at 01/04/2023 1:30 PM [...] month ago when he was seen in [place]. He is neurologically intact except for limited [...] day Other additions or changes: None Signature: Cody Westfall MD, PhD Date: 01/04/2023 Time: 1:24 PM CONSULT: NEUROSURGERY SERVICE Patient Name: Amaury Blank Date of : 1940 SERVICE DATE: 01/03/2023 SERVICE TIME: 4:07 PM REASON FOR CONSULT: [facility] REQUESTING PHYSICIAN: Prosper PRIMARY CARE PHYSICIAN: [...] (peripheral artery disease) (HCC) UC (ulcerative colitis) ([facility]) PAST SURGICAL HISTORY Procedure Laterality Date PAST [...] flush bag 20 mL INTRAVENOUS PRN Joao Coe DO NaCl 0.9% iv infusion 100 mL/hr INTRAVENOUS CONTINUOUS Joao Coe DO 100 mL/hr at 01/03/23 1412 100 mL/hr at 01/03/23 1412 ondansetron 4 mg tab(s) (ZOFRAN) 4 mg ORAL q 6 H PRN Joao Saravanan, DO Or ondansetron (PF) 4 mg injection (ZOFRAN) 4 mg INTRAVENOUS q 6 H PRN Joao Seeshellieman, DO morphine 2 mg injection 2 mg INTRAVENOUS q 3 H PRN Joao Saravanan, DO oxyCODONE IR 5-10 mg tab(s) (ROXICODONE) 5-10 mg ORAL q 6 H PRN Joao Seeshellieman, DO acetaminophen 975 mg tab(s) (TYLENOL) 975 mg ORAL q 6 H [facility], DO 975 mg at 01/03/23 1412 [START ON 01/04/2023] pantoprazole 40 mg injection (PROTONIX) 40 mg INTRAVENOUS DAILY (6 AM) JoaoCárdenas, zinc oxide 20 % TOPICAL BID Alexia Almonte APRN.METAL BONDING WORKER Current Outpatient Medications Medication Sig Dispense Refill [...] Zinc (more content not included)... Normal [facility] CONSULT HNO ID: [id number] Author: Errol Rod MD Service: Orthopaedic Surgery [...] HPI: 82 year old male presented to [facility] ED on 01/03/2023 as a transfer from [place] for evaluation of left hip pain. The [...] 01/04 pending clearance -Case discussed with Dr. Ej Rod, in agreement with assessment and plan Shade Rod DO Orthopaedic Surgery 01/03/2023 11:00 AM Normal [facility] CONSULT PROGon 01-03-2023 CONSULT PROG HNO ID: [id number] Author: Alexia Almonte APRN.METAL BONDING WORKER Service: Wound/Ostomy Author Type: Nurse Practitioner Type: Consult Progress Note Filed: 01/03/2023 3:48 PM Note Text: WOUND CARE SERVICE CONSULT WIDE AREA NETWORK ADMINISTRATOR NOTE SERVICE DATE: 01/03/2023 SERVICE TIME: 1511 REASON FOR CONSULT: Consultation requested by Curt [...] who is seen today with Kathi Hernandez, Wound/finance vice president, and presented to hospital with complaints of [...] 01/03/2023 3:15 PM Wound Image Site Assessment [place];Edema;Yellow Adelina-Wound Assessment Yellow-brown (Hemosiderin staining) Shape irregular [...] CARE (SPECIFY) ([place] Routine Active Alexia Almonte APRN.METAL BONDING WORKER - Specify:: Adaptic, calcium alginate, ABD and [...] 01/03/2023 3:20 PM Wound Image Site Assessment [place];Red Adelina-Wound Assessment Intact Shape irregular Wound Length [...] DRESSING CARE (SPECIFY) ([place]) Routine Active Alexia Almonte, SRAVAN.METAL BONDING WORKER - Specify:: xeroform to skin tears left elbow and knee - Specify:: Wash wound with soap and water or wound cleanser with every dressing change. Apply xeroform to skin tears on left lateral knee and elbow. Secure with Allevyn. Change daily and as needed if soiled or non-adherent. Wound 01/03/23 1538 Moisture Buttock (Active) Assessments 01/03/2023 3:2 (more content not included)... Normal [facility] CT BRAIN WO IVCONon 01-04-20 CT BRAIN WO IVCON * * *Final Report* * * DATE OF EXAM: Jan 03 2023 1:25PM [facility] 0504 - CT BRAIN WO IVCON [...] COMPARISON: Outside CT from earlier today RESULT: Pharmacist In Charge Owner (topogram) images: No additional findings. Post-operative change: [...] frontal parenchymal hematoma with some associated edema. [employer] Weapons Sergeant: ANABEL Transcribe Date/Time: Jan 03 2023 1:31P Dictated by : JUWAN NARANJO MD This examination was interpreted and the report reviewed and electronically signed by: JUWAN NARANJO MD on Jan 03 2023 1:35PM EST [id number] Normal [facility] Determination of erythrocyte mean corpuscular volume (MCV)Ordered By: Lupe Joe on 01-03-2023 MCV (RBC) [Entitic vol] 102.4 fL 80-94 [facility] ED NOTEon 01-03-2023 ED NOTE HNO ID: [id number] Author: Tresa Hernandez RN Service: ? Author Type: Registered Nurse Type: ED Notes Filed: 01/03/2023 9:33 PM Note Text: Attempted report x1. Left on hold >5 minutes Normal [facility] ED NOTE HNO ID: [id number] Author: Crispin Addison RN Service: ? Author Type: Registered Nurse Type: ED Notes Filed: 01/03/2023 5:35 PM Note Text: Normal [facility] ED NOTE HNO ID: [id number] Author: Crispin Addison RN Service: ? Author Type: Registered Nurse Type: ED Notes Filed: 01/03/2023 5:35 PM Note Text: Mri screening form completed and faxed Normal [facility] ED NOTE HNO ID: [id number] Author: Alyssa Mao RN Service: Emergency Medicine Author Type: Registered Nurse Type: ED Notes Filed: 01/03/2023 1:13 PM Note Text: ED CT AWARE OF OUTSTANDING ORDER Normal [facility] ED NOTE HNO ID: [id number] Author: Alyssa Mao RN Service: Emergency Medicine Author Type: Registered Nurse Type: ED Notes Filed: 01/03/2023 1:16 PM Note Text: Patients cardiac leads disconnected pt placed back on monitor. Normal [facility] ED NOTE HNO ID: [id number] Author: Crispin Addison RN Service: ? Author Type: Registered Nurse Type: ED Notes Filed: 01/03/2023 10:34 AM Note Text: Patient placed on satellite project site monitor, patient placed on non-invasive blood pressure monitor, patient placed on continuous pulse oximetry. Alarms set and on, patient tolerating monitoring. 70SR Normal [facility] ED NOTE HNO ID: [id number] Author: Sawyer Kumar Service: ? Author Type: Accounts Payable Or Receivable Clerk and Forensic Science Examiner Type: ED Notes Filed: 01/03/2023 10:29 AM Note Text: Bed: [address] [place] [address] Expected date: 01/03/23 Expected time: 10:23 AM Means of arrival: [facility] Comments: [facility] [place] transfer Normal [facility] ED PROV NOTEon 01-03-2023 ED PROV NOTE HNO ID: [id number] Author: Mercedes Lai MD Service: Emergency Medicine Author Type: Physician Type: ED Provider Notes Filed: 01/13/2023 6:14 PM Note Text: ED Provider Note Patient Name: Amaury Blank : 1940 SERVICE DATE: 01/03/23 History Patient presents with: Trauma: Pt transfer from [place] pt had fall this a.m . Pt states he lost his balaance and fell, + left hip fx and also brain bleed that is old but worsening. + hit head but did not have loc. Gcs 15 HPI Mr. Amaury Blank is a 82 year old male with PMH CAD, HTN, HLD, UC presenting today with trauma transfer from [facility] after mechanical fall. The patient was at home this morning when he lost his balance and fell down landing on his left hip. He was unable to ambulate and felt immediate pain in his left hip. At [facility], he was evaluated to have left [...] Stat (more content not included)... Normal [facility] EKGon 01-03-2023 Electrocardiogram Ventricular Rate : 7 0 BPM Atrial Rate : 70 BPM P-R Interval : 254 ms QRS Duration : 132 ms Q-T Interval : 444 ms QTC Calculation(Bazett) : 479 ms Calculated P [place] : 33 degrees Calculated R [place] : -47 degrees Calculated T [place] : 63 degrees SINUS RHYTHM WITH 1ST DEGREE A-V BLOCK LEFT AXIS DEVIATION NON-SPECIFIC INTRA-VENTRICULAR CONDUCTION BLOCK INFERIOR INFARCT , AGE UNDETERMINED ABNORMAL ECG NO PREVIOUS ECGS AVAILABLE Confirmed by MD CAMPUZANO THOMAS ([id number]) on 01/12/2023 2:55:59 PM NAME : AMAURY BLANK PID : [id number] : 1940 Gender : Male Race : ORD : Procedure Date : Jan 03 2023 18:17:18 Edit Date : Jan 12 2023 14:56:00 Diagnosis: SINUS RHYTHM WITH 1ST DEGREE A-V BLOCK LEFT AXIS DEVIATION NON-SPECIFIC INTRA-VENTRICULAR CONDUCTION BLOCK INFERIOR INFARCT , AGE UNDETERMINED ABNORMAL ECG NO PREVIOUS ECGS AVAILABLE Confirmed by MD CAMPUZANO THOMAS ([id number]) on 01/12/2023 2:55:59 PM Test Reason : Location : 4 : [facility] Overread By : MD CAMPUZANO THOMAS Edited By : MD CAMPUZANO THOMAS Referred By : , Acquired by : DEANNA ALMAGUER [facility] HISTORY PHYSICALon HISTORY PHYSICAL HNO ID: [id number] Author: Blade Cheng MD Service: General Surgery Author Type: Resident Type: HANDP Filed: 01/03/2023 5:38 PM Note Text: Attestation signed by Bing Perez MD at 01/28/2023 2:29 PM I personally saw and examined the patient on 01/03/23. I reviewed the resident's note. I agree with the resident's assessment and plan unless otherwise noted. Bing Perez MD TRAUMA SURGERY [facility] ARRIVAL DATE: 01.03.23 ARRIVAL TIME: : INJURY DATE: 01.03.23 INJURY TIME: 0500 Subjective 82 year old male PMHx of CAD s/p CABG, HTN, COPD, A-fib, and HLD fell from ground height and hit his head when he was was trying to turn while using his walker today in the AM. Patient denies loss of consciousness. Patient lives in a senior living. Patient patient says he also has left [...] PO2, (more content not included)... Normal [facility] Hematocrit Auto (Bld) [Volum e fraction]Ordered By: Lupe Joe on 01-03-2023 Hematocrit (Bld) [Volume fraction] 30.3 % 40-54 [facility] ([facility]) [Mass/Vol]Or dered By: Lupe Joe on 01-03-2023 MCHC (RBC) [Mass/Vol] 31.4 g/dL 32-36 [facility] NT-proBNP [facility] Natriuretic peptide.B prohormone N-Terminal [Mass/Vol] 4837 pg/mL High <450 [facility] Comment on above: Order Comment: Migel barnard Type: BLOOD SPECIMEN Ordering Facility: [facility] Address: [address] [place] [address] Performed By: #### 5 8410-2 #### [facility] CLIA [id number] [address] No Panel InformationOrdered By: Lupe Joe on 01-03-2023 32.1 pg 27.0-32.0 [facility] 14.1 % 11.6-14.6 [facility] 53.4 fl 35.1-43.9 [facility] 0.700 % 0.0-0.9 [facility] 0 % 0-5 [facility] 29 mL/min >60 [facility] 35 mL/min >60 [facility] 25.94 ml/min [facility] 17.9 RATIO 10-20 [facility] 28.0 mmol/L 21.0-32.0 [facility] POTASSIUM BLDon 01-03-2023 Potassium [Moles/Vol] 5.3 mmol/L High 3.7-5.1 [facility] Comment on above: Order Comment: Migel barnard Type: BLOOD SPECIMEN Ordering Facility: [facility] Address: [address] [place] [address] Performed By: #### 5 8410-2 #### [facility] CLIA [id number] [address] PT panel Coag (PPP)on 2022 INR Coag (PPP) [Relative time] 1.0 {INR} Normal 0.9-1.3 [facility] Comment on above: Order Comment: Migel barnard Type: BLOOD SPECIMEN Ordering Facility: [facility] Address: [address] [place] [address] Result Comment: Bettie min K Antagonist (VKA) Therapeutic Range: INR 2 to 3 (Target INR of 2.5) Note: For patients treated with VKA drugs, such as warfarin, the [employer] 2012 Guideline recommends [...] GH, et al. Chest 2012, 141:7S-47S Errol CAI et al. [facility] 2017, 70: 252-289 Performed By: #### 5 8410-2 #### [facility] CLIA [id number] [address] [facility] PT Coag (PPP) [Time] 10.5 s Normal 9.7-13.0 [facility] Comment on above: Order Comment: Speci men Type: BLOOD SPECIMEN Ordering Facility: [facility] Address: [address] [place], [place] [id number] Performed By: #### 5 8410-2 #### [facility] CLIA [id number] [address] Platelets bldOrdered By: Johnna Joe on 01-03-2023 Platelets (Bld) [#/Vol] 203 10*3/uL 150-450 [facility] Serum or plasma calcium elvia urement (mass/volume)Ordered By: Remus Joe on 01-03-2023 Calcium [Mass/Vol] 8.8 mg/dL 8.5-10.1 [facility] Serum or plasma creatinine m easurement (mass/volume)Ordered By: Remus Joe on 01-03-2023 Creatinine [Mass/Vol] 2.29 mg/dL 0.70-1.30 [facility] Serum or plasma urea nitroge n measurement (mass/volume)Ordered By: Remus Joe on 01-03-2023 Urea nitrogen [Mass/Vol] 41 mg/dL 7-18 [facility] Thin prep Papanicolaou smear with manual screeningOrdered By: Remus Joe on 01-03-2023 Thin prep Papanicolaou smear with manual screening 4 5-15 [facility] aPTT PPPon 01-03-2023 aPTT Coag (PPP) [Time] 27.4 s Normal 23.0-32.4 [facility] Comment on above: Order Comment: Speci men Type: BLOOD SPECIMEN Ordering Facility: [facility] Address: [address] [place] [phone] Performed By: #### 5 8410-2 #### [facility] CLIA [id number] [address] [place] [address] [facility] Absolute lymphocyte countOrd ered By: Paco Norman on 01-01-2023 Lymphocytes Auto (Unsp spec) [#/Vol] 0.83 10*3/uL 0.83-4.51 [facility] Basophil percentageOrdered B y: Paco Norman on 01-01-2023 Basophil percentage 82 mg/dL 74-106 [facility] Basophil percentage 140 mmol/L 136-145 [facility] Basophil percentage 4.3 mmol/L 3.5-5.1 [facility] Basophil percentage 110 mmol/L 98-107 [facility] Basophils (Bld) [#/Vol] 4.8 10*3/uL 4.4-11.0 [facility] Basophils (Bld) [#/Vol] 3.4 10*3/uL 2.0-7.7 [facility] Basophils/100 WBC (Bld) 70.0 % 47-70 [facility] Basophils/100 WBC (Bld) 2.9 % 0-5 [facility] Basophils/100 WBC (Bld) 0.4 % 0-1 [facility] Blood erythrocytes count (nu mber/volume)Ordered By: Paco Norman on 01-01-2023 RBC (Bld) [#/Vol] 2.75 10*6/uL 4.6-6.2 [facility] Blood hemoglobin measurement (mass/volume)Ordered By: Paco Norman on 01-01-2023 Hemoglobin (Bld) [Mass/Vol] 9.0 g/dL 13.0-16.5 [facility] Blood lymphocytes/100 leukoc ytesOrdered By: Paco Norman on 01-01-2023 Lymphocytes/100 WBC (Bld) 17.3 % 19-41 [facility] Blood monocytes/100 leukocyt esOrdered By: Paco Norman on 01-01-2023 Monocytes/100 WBC (Bld) 9.2 % 0-10 [facility] Blood platelet mean volumeOr dered By: aPco Norman on 01-01-2023 Platelet mean volume (Bld) [Entitic vol] 9.6 fL 6.2-12.0 [facility] Determination of erythrocyte mean corpuscular volume (MCV)Ordered By: Paco Norman on 01-01-2023 MCV (RBC) [Entitic vol] 102.9 fL 80-94 [facility] Hematocrit Auto (Bld) [Volum e fraction]Ordered By: Paco Norman on 01-01-2023 Hematocrit (Bld) [Volume fraction] 28.3 % 40-54 [facility] MCHC Auto (RBC) [Mass/Vol]Or dered By: Paco Norman on 01-01-2023 MCHC (RBC) [Mass/Vol] 31.8 g/dL 32-36 [facility] No Panel InformationOrdered By: Paco Norman on 01-01-2023 32.7 pg 27.0-32.0 [facility] 14.2 % 11.6-14.6 [facility] 54.3 fl 35.1-43.9 [facility] 0.200 % 0.0-0.9 [facility] 0 % 0-5 [facility] 30 mL/min >60 [facility] 36 mL/min >60 [facility] 19.1 RATIO 10-20 [facility] 26.0 mmol/L 21.0-32.0 [facility] Platelets bldOrdered By: Rajendra Norman on 01-01-2023 Platelets (Bld) [#/Vol] 177 10*3/uL 150-450 [facility] Serum or plasma calcium elvia urement (mass/volume)Ordered By: Paco Norman on 01-01-2023 Calcium [Mass/Vol] 8.6 mg/dL 8.5-10.1 [facility] Serum or plasma creatinine m easurement (mass/volume)Ordered By: Jelenapillonicholasdel Norman on 01-01-2023 Creatinine [Mass/Vol] 2.25 mg/dL 0.70-1.30 [facility] Serum or plasma urea nitroge n measurement (mass/volume)Ordered By: Paco Norman on 01-01-2023 Urea nitrogen [Mass/Vol] 43 mg/dL 7-18 [facility] Thin prep Papanicolaou smear with manual screeningOrdered By: pillocamerondel Norman on 01-01-2023 Thin prep Papanicolaou smear with manual screening 4 -15 [facility] Absolute lymphocyte countOrd ered By: Paco Norman on 12-24-2022 Lymphocytes Auto (Unsp spec) [#/Vol] 0.80 10*3/uL 0.83-4.51 [facility] Bacteria identified Cx Nom ( Wound)Ordered By: Paco Norman on 12-24-2022 Routine wound culture Stenotrophomonas maltophilia [facility] Routine wound culture Corynebacterium jeikeium [facility] Basophil percentageOrdered B y: Paco Norman on 12-24-2022 Basophil percentage 88 mg/dL 74-106 [facility] Basophil percentage 5.3 g/dL 6.4-8.2 [facility] Basophil percentage 0.50 mg/dL 0.20-1.00 [facility] Basophil percentage 105 mg/dL <200 [facility] Basophil percentage 61 mg/dL <199 [facility] Basophil percentage 141 mmol/L 136-145 [facility] Basophil percentage 4.1 mmol/L 3.5-5.1 [facility] Basophil percentage 109 mmol/L 98-107 [facility] Basophils (Bld) [#/Vol] 6.6 10*3/uL 4.4-11.0 [facility] Basophils (Bld) [#/Vol] 4.9 10*3/uL 2.0-7.7 [facility] Basophils/100 WBC (Bld) 0.6 % 0-1 [facility] Basophils/100 WBC (Bld) 74.4 % 47-70 [facility] Basophils/100 WBC (Bld) 3.2 % 0-5 [facility] Bilirubin [Mass/Vol] 0.50 mg/dL 0.20-1.00 [facility] Comment on above: For patients on eltr ombopag therapy, use of Dimension Warden TBIL is not recommended. Chloride [Moles/Vol] 109 mmol/L 98-107 [facility] Cholesterol [Mass/Vol] 105 mg/dL <200 [facility] Comment on above: <200 mg/dL Desirable 200-240 mg/dL Borderline >240 mg/dL High Risk Eosinophils/100 WBC (Bld) 3.2 % 0-5 [facility] Glucose [Mass/Vol] 88 mg/dL 74-106 [facility] Neutrophils (Bld) [#/Vol] 4.9 10*3/uL 2.0-7.7 [facility] Neutrophils/100 WBC (Bld) 74.4 % 47-70 [facility] Potassium [Moles/Vol] 4.1 mmol/L 3.5-5.1 [facility] Protein [Mass/Vol] 5.3 g/dL 6.4-8.2 [facility] Sodium [Moles/Vol] 141 mmol/L 136-145 [facility] Triglyceride [Mass/Vol] 61 mg/dL <199 [facility] Comment on above: The drugs N-Acetylcy steine and Metamizole may falsely depress this assay.Serum Triglycerides Reference Interval Normal <150 mg/dL Borderline high 150 - 199 mg/dL High 200 - 499 mg/dL Very High > or = 500 mg/dL WBC (Bld) [#/Vol] 6.6 10*3/uL 4.4-11.0 [facility] Blood erythrocytes count (nu mber/volume)Ordered By: Paco Norman on 12-24-2022 RBC (Bld) [#/Vol] 2.93 10*6/uL 4.6-6.2 [facility] Blood hemoglobin measurement (mass/volume)Ordered By: Paco Norman on 12-24-2022 Hemoglobin (Bld) [Mass/Vol] 9.7 g/dL 13.0-16.5 [facility] Blood lymphocytes/100 leukoc ytesOrdered By: Paco Norman on 12-24-2022 Lymphocytes/100 WBC (Bld) 12.1 % 19-41 [facility] Blood monocytes/100 leukocyt esOrdered By: Paco Norman on 12-24-2022 Monocytes/100 WBC (Bld) 9.1 % 0-10 [facility] Blood platelet mean volumeOr dered By: Paco Norman on 12-24-2022 Platelet mean volume (Bld) [Entitic vol] 10.2 fL 6.2-12.0 [facility] Determination of erythrocyte mean corpuscular volume (MCV)Ordered By: Paco Norman on 12-24-2022 MCV (RBC) [Entitic vol] 103.8 fL 80-94 [facility] Gram stain for investigation of transfusion reactionOrdered By: Paco Norman on 12-24-2022 Microscopic observation Gram stain Nom (Unsp spec) [facility] Hematocrit Auto (Bld) [Volum e fraction]Ordered By: Riazcamerondel Norman on 12-24-2022 Hematocrit (Bld) [Volume fraction] 30.4 % 40-54 [facility] Laboratory - Chemistry and C hemistry - challengeOrdered By: Paco Norman on 12-24-2022 ALP [Catalytic activity/Vol] 89 U/L 45-117 [facility] ALT [Catalytic activity/Vol] 19 U/L 16-61 [facility] CO2 [Moles/Vol] 26.0 mmol/L 21.0-32.0 [facility] Globulin (S) [Mass/Vol] 3.1 g/dL 2.2-4.2 [facility] Urea nitrogen/Creatinine [Mass ratio] 32.7 mg/mg 10-20 [facility] Laboratory - Hematology and Cell countsOrdered By: Paco Norman on 12-24-2022 Erythrocyte distribution width (RBC) [Entitic vol] 56.1 fL 35.1-43.9 [facility] Erythrocyte distribution width (RBC) [Ratio] 14.6 % 11.6-14.6 [facility] Immature granulocytes/100 WBC (Bld) 0.600 % 0.0-0.9 [facility] Comment on above: IG% - Immature Granu locytes (promyelocytes, myelocytes and metamyelocytes) > 1% indicates that a LEFT SHIFT is Present. MCH (RBC) [Entitic mass] 33.1 pg 27.0-32.0 [facility] Nucleated RBC/100 WBC (Bld) [Ratio] 0 % 0-5 [facility] MCHC Auto (RBC) [Mass/Vol]Or dered By: Paco Norman on 12-24-2022 MCHC (RBC) [Mass/Vol] 31.9 g/dL 32-36 [facility] No Panel InformationOrdered By: Paco Norman on 12-24-2022 Estimated GFR (MDRD) Amer 42 mL/min >60 [facility] Comment on above: GFR Calc Estimated GFR (MDRD) Non-Af Amer 35 mL/min >60 [facility] Comment on above: Non- GFR Calc 33.1 pg 27.0-32.0 [facility] 14.6 % 11.6-14.6 [facility] 56.1 fl 35.1-43.9 [facility] 0.600 % 0.0-0.9 [facility] 0 % 0-5 [facility] 35 mL/min >60 [facility] 42 mL/min >60 [facility] 32.7 RATIO 10-20 [facility] 3.1 g/dL 2.2-4.2 [facility] 89 U/L 45-117 [facility] 19 U/L 16-61 [facility] 26.0 mmol/L 21.0-32.0 [facility] Platelets bldOrdered By: Rajendra Norman on 12-24-2022 Platelets (Bld) [#/Vol] 144 10*3/uL 150-450 [facility] Serum or plasma albumin elvia urement (mass/volume)Ordered By: Paco Norman on 12-24-2022 Albumin [Mass/Vol] 2.2 g/dL 3.2-5.0 [facility] Serum or plasma albumin/glob ulin mass ratioOrdered By: Paco Norman on 12-24-2022 Albumin/Globulin [Mass ratio] 0.7 {ratio} 0.9-2.4 [facility] Serum or plasma calcium elvia urement (mass/volume)Ordered By: Paco Norman on 12-24-2022 Calcium [Mass/Vol] 9.0 mg/dL 8.5-10.1 [facility] Serum or plasma cholesterol in HDL measurement (mass/volume)Ordered By: Paco Norman on 12-24-2022 Cholesterol in HDL [Mass/Vol] 48 mg/dL >40 [facility] Comment on above: The drugs N-Acetylcy steine and Metamizole may falsely depress this assay. Reference Range HDL <40 mg/dL Low HDL Cholesterol HDL >or= 60 mg/dL High HDL Cholesterol Serum or plasma cholesterol in VLDL measurement (mass/volume)Ordered By: Paco Norman on 12-24-2022 Cholesterol in VLDL [Mass/Vol] 12 mg/dL 5-40 [facility] Serum or plasma creatinine m easurement (mass/volume)Ordered By: Paco Norman on 12-24-2022 Creatinine [Mass/Vol] 1.96 mg/dL 0.70-1.30 [facility] Comment on above: The validity of the calculated GFR & GFRAA in patients over 70 years has not been determined. Clinical correlation is essential. Serum or plasma low density lipoprotein (LDL) cholesterol measurement (mass/volume)Ordered By: Paco Norman on 12-24-2022 Cholesterol in LDL [Mass/Vol] 45 mg/dL 0-130 [facility] Serum or plasma urea nitroge n measurement (mass/volume)Ordered By: Paco Norman on 12-24-2022 Urea nitrogen [Mass/Vol] 64 mg/dL 7-18 [facility] Thin prep Papanicolaou smear with manual screeningOrdered By: Paco Norman on 12-24-2022 Thin prep Papanicolaou smear with manual screening 18 U/L 15-37 [facility] Thin prep Papanicolaou smear with manual screening 6 5-15 [facility] Serum or plasma carcinoembry onic antigen measurement (mass/volume)Ordered By: Irving Horowitz on 12-21-2022 Carcinoembryonic Ag [Mass/Vol] 2.0 ng/mL 0.0-4.7 [facility] Comment on above: Nonsmokers <3.9 Smok ers <5.6[employer] Electrochemiluminescence Immunoassay(ECLIA)Values obtained with different assay methods or kitscannot be used interchangeably. Results cannot beinterpreted as absolute evidence of the presence orabsence of malignant disease. Serum or plasma gastrin elvia urement (mass/volume)Ordered By: Irving Horowitz on 12-21-2022 Gastrin [Mass/Vol] 439 pg/mL 0-115 [facility] Comment on above: Siemens Immulite 200 0 Immunochemiluminometric assay (ICMA)Values obtained with different assay methods or kits cannotbe used interchangeably. Results cannot be interpreted asabsolute evidence of the presence or absence of malignantdisease.Performed at: - [facility] [id number] Director: Amaury Raya PhD, Phone: [phone] at: [facility] [id number] Director: Camilla Ochoa MD, Phone: [phone] Absolute lymphocyte countOrd ered By: Dr. Hale on 12-19-2022 Lymphocytes Auto (Unsp spec) [#/Vol] 0.78 10*3/uL 0.83-4.51 [facility] Basophil percentageOrdered B y: Jesu Hale on 12-19-2022 Basophil percentage 133 mg/dL 74-106 [facility] Basophil percentage 140 mmol/L 136-145 [facility] Basophil percentage 4.3 mmol/L 3.5-5.1 [facility] Basophil percentage 105 mmol/L 98-107 [facility] Basophils (Bld) [#/Vol] 7.5 10*3/uL 4.4-11.0 [facility] Basophils (Bld) [#/Vol] 5.9 10*3/uL 2.0-7.7 [facility] Basophils/100 WBC (Bld) 78.6 % 47-70 [facility] Basophils/100 WBC (Bld) 1.9 % 0-5 [facility] Basophil percentageOrdered B y: Dr. Hale on 12-19-2022 Basophils/100 WBC (Bld) 0.3 % 0-1 [facility] Chloride [Moles/Vol] 105 mmol/L 98-107 [facility] Eosin[facility]/100 WBC (Bld) 1.9 % 0-5 [facility] Glucose [Mass/Vol] 133 mg/dL 74-106 [facility] Comment on above: Fasting Glucose resu lt greater than or equal to 126 mg/dL suggests DIABETES MELLITUS per A.D.A. criteria. Neutrophils (Bld) [#/Vol] 5.9 10*3/uL 2.0-7.7 [facility] Neutrophils/100 WBC (Bld) 78.6 % 47-70 [facility] Potassium [Moles/Vol] 4.3 mmol/L 3.5-5.1 [facility] Sodium [Moles/Vol] 140 mmol/L 136-145 [facility] WBC (Bld) [#/Vol] 7.5 10*3/uL 4.4-11.0 [facility] Blood erythrocytes count (nu mber/volume)Ordered By: Dr. Hale on 12-19-2022 RBC (Bld) [#/Vol] 3.27 10*6/uL 4.6-6.2 [facility] Blood hemoglobin measurement (mass/volume)Ordered By: Dr. Hale on 12-19-2022 Hemoglobin (Bld) [Mass/Vol] 10.6 g/dL 13.0-16.5 [facility] Blood lymphocytes/100 leukoc ytesOrdered By: Dr. Hale on 12-19-2022 Lymphocytes/100 WBC (Bld) 10.4 % 19-41 [facility] Blood monocytes/100 leukocyt esOrdered By: Dr. Hale on 12-19-2022 Monocytes/100 WBC (Bld) 8.0 % 0-10 [facility] Blood platelet mean volumeOr dered By: Dr. Hale on 12-19-2022 Platelet mean volume (Bld) [Entitic vol] 10.0 fL 6.2-12.0 [facility] Determination of erythrocyte mean corpuscular volume (MCV)Ordered By: Dr. Hale on 12-19-2022 MCV (RBC) [Entitic vol] 100.6 fL 80-94 [facility] Hematocrit Auto (Bld) [Volum e fraction]Ordered By: Dr. Hale on 12-19-2022 Hematocrit (Bld) [Volume fraction] 32.9 % 40-54 [facility] Laboratory - Chemistry and C hemistry - challengeOrdered By: Dr. Hale on 12-19-2022 CO2 [Moles/Vol] 29.0 mmol/L 21.0-32.0 [facility] Urea nitrogen/Creatinine [Mass ratio] 45.6 mg/mg 10-20 [facility] Laboratory - Hematology and Cell countsOrdered By: Dr. Hael on 12-19-2022 Erythrocyte distribution width (RBC) [Entitic vol] 62.8 fL 35.1-43.9 [facility] Erythrocyte distribution width (RBC) [Ratio] 16.9 % 11.6-14.6 [facility] Immature granulocytes/100 WBC (Bld) 0.800 % 0.0-0.9 [facility] Comment on above: IG% - Immature Granu locytes (promyelocytes, myelocytes and metamyelocytes) > 1% indicates that a LEFT SHIFT is Present. MCH (RBC) [Entitic mass] 32.4 pg 27.0-32.0 [facility] Nucleated RBC/100 WBC (Bld) [Ratio] 0 % 0-5 [facility] MCHC Auto (RBC) [Mass/Vol]Or dered By: Dr. Hale on 12-19-2022 MCHC (RBC) [Mass/Vol] 32.2 g/dL 32-36 [facility] No Panel InformationOrdered By: Dr. Hale on 12-19-2022 Estimated Creatinine Clearance Calc 26.47 ml/min [facility] Estimated GFR (MDRD) Amer 36 mL/min >60 [facility] Comment on above: GFR Calc Estimated GFR (MDRD) Non-Af Amer 30 mL/min >60 [facility] Comment on above: Non- GFR Calc No Panel InformationOrdered By: Jesu Hale on 12-19-2022 32.4 pg 27.0-32.0 [facility] 16.9 % 11.6-14.6 [facility] 62.8 fl 35.1-43.9 [facility] 0.800 % 0.0-0.9 [facility] 0 % 0-5 [facility] 30 mL/min >60 [facility] 36 mL/min >60 [facility] 26.47 ml/min [facility] 45.6 RATIO 10-20 [facility] 29.0 mmol/L 21.0-32.0 [facility] Platelets bldOrdered By: Dr. Hale on 12-19-2022 Platelets (Bld) [#/Vol] 145 10*3/uL 150-450 [facility] Serum or plasma calcium elvia urement (mass/volume)Ordered By: Dr. Hale on 12-19-2022 Calcium [Mass/Vol] 9.3 mg/dL 8.5-10.1 [facility] Serum or plasma creatinine m easurement (mass/volume)Ordered By: Dr. Hale on 12-19-2022 Creatinine [Mass/Vol] 2.26 mg/dL 0.70-1.30 [facility] Comment on above: The validity of the calculated GFR & GFRAA in patients over 70 years has not been determined. Clinical correlation is essential. Serum or plasma urea nitroge n measurement (mass/volume)Ordered By: Dr. Hale on 12-19-2022 Urea nitrogen [Mass/Vol] 103 mg/dL 7-18 [facility] Comment on above: Critical Result(s) C alled at: 09:10:17 12/19/2022 by: Jackie Moreno. Results read back by same. Thin prep Papanicolaou smear with manual screeningOrdered By: Dr. Hale on 12-19-2022 Thin prep Papanicolaou smear with manual screening 6 -15 [facility] Absolute lymphocyte countOrd ered By: Dr. Hale on 12-18-2022 Lymphocytes Auto (Unsp spec) [#/Vol] 0.86 10*3/uL 0.83-4.51 [facility] Basophil percentageOrdered B y: Dr. Hale on 12-18-2022 Basophils/100 WBC (Bld) 0.3 % 0-1 [facility] Chloride [Moles/Vol] 103 mmol/L 98-107 [facility] Eosinophils/100 WBC (Bld) 1.7 % 0-5 [facility] Glucose [Mass/Vol] 98 mg/dL 74-106 [facility] Neutrophils (Bld) [#/Vol] 4.5 10*3/uL 2.0-7.7 [facility] Neutrophils/100 WBC (Bld) 70.1 % 47-70 [facility] Potassium [Moles/Vol] 4.5 mmol/L 3.5-5.1 [facility] Sodium [Moles/Vol] 139 mmol/L 136-145 [facility] WBC (Bld) [#/Vol] 6.5 10*3/uL 4.4-11.0 [facility] Blood erythrocytes count (nu mber/volume)Ordered By: Dr. Hale on 12-18-2022 RBC (Bld) [#/Vol] 2.07 10*6/uL 4.6-6.2 [facility] Blood hemoglobin measurement (mass/volume)Ordered By: Dr. Hale on 12-18-2022 Hemoglobin (Bld) [Mass/Vol] 7.0 g/dL 13.0-16.5 [facility] Blood lymphocytes/100 leukoc ytesOrdered By: Dr. Hale on 12-18-2022 Lymphocytes/100 WBC (Bld) 13.3 % 19-41 [facility] Blood monocytes/100 leukocyt esOrdered By: Dr. Hale on 12-18-2022 Monocytes/100 WBC (Bld) 13.8 % 0-10 [facility] Blood platelet mean volumeOr dered By: Dr. Hale on 12-18-2022 Platelet mean volume (Bld) [Entitic vol] 9.9 fL 6.2-12.0 [facility] Determination of erythrocyte mean corpuscular volume (MCV)Ordered By: Dr. Hale on 12-18-2022 MCV (RBC) [Entitic vol] 104.8 fL 80-94 [facility] Hematocrit Auto (Bld) [Volum e fraction]Ordered By: Dr. Hale on 06-21-2023 Hematocrit (Bld) [Volume fraction] 21.7 % 40-54 [facility] Laboratory - Chemistry and C hemistry - challengeOrdered By: Dr. Hale on 12-18-2022 CO2 [Moles/Vol] 30.0 mmol/L 21.0-32.0 [facility] Urea nitrogen/Creatinine [Mass ratio] 48.7 mg/mg 10-20 [facility] Laboratory - Hematology and Cell countsOrdered By: Dr. Hale on 12-18-2022 Erythrocyte distribution width (RBC) [Entitic vol] 54.2 fL 35.1-43.9 [facility] Erythrocyte distribution width (RBC) [Ratio] 14.3 % 11.6-14.6 [facility] Immature granulocytes/100 WBC (Bld) 0.800 % 0.0-0.9 [facility] Comment on above: IG% - Immature Granu locytes (promyelocytes, myelocytes and metamyelocytes) > 1% indicates that a LEFT SHIFT is Present. MCH (RBC) [Entitic mass] 33.8 pg 27.0-32.0 [facility] Nucleated RBC/100 WBC (Bld) [Ratio] 0 % 0-5 [facility] MCHC Auto (RBC) [Mass/Vol]Or dered By: Dr. Hale on 12-18-2022 MCHC (RBC) [Mass/Vol] 32.3 g/dL 32-36 [facility] No Panel InformationOrdered By: Dr. Hale on 12-18-2022 Estimated Creatinine Clearance Calc 25.78 ml/min [facility] Estimated GFR (MDRD) Amer 35 mL/min >60 [facility] Comment on above: GFR Calc Estimated GFR (MDRD) Non-Af Amer 29 mL/min >60 [facility] Comment on above: Non- GFR Calc Platelets bldOrdered By: Dr. Hale on 12-18-2022 Platelets (Bld) [#/Vol] 149 10*3/uL 150-450 [facility] Serum or plasma calcium elvia urement (mass/volume)Ordered By: Dr. Hale on 12-18-2022 Calcium [Mass/Vol] 8.6 mg/dL 8.5-10.1 [facility] Serum or plasma creatinine m easurement (mass/volume)Ordered By: Dr. Hale on 12-18-2022 Creatinine [Mass/Vol] 2.32 mg/dL 0.70-1.30 [facility] Comment on above: The validity of the calculated GFR & GFRAA in patients over 70 years has not been determined. Clinical correlation is essential. Serum or plasma urea nitroge n measurement (mass/volume)Ordered By: Dr. Hale on 12-18-2022 Urea nitrogen [Mass/Vol] 113 mg/dL 7-18 [facility] Comment on above: Critical Result(s) C alled at: 06:35:35 12/18/2022 by: Delores Ojeda RN ([facility]). Results read back by same. Thin prep Papanicolaou smear with manual screeningOrdered By: Dr. Hale on 12-18-2022 Thin prep Papanicolaou smear with manual screening 6 5-15 [facility] Lower GI hemoglobin IA Ql (S tl)Ordered By: Jesu Hale on 12-17-2022 Stool Occult Blood (OSCAR) Positive [facility] Stool gastrointestinal hemoglobin detection by immunologic method Positive [facility] Lower GI hemoglobin IA Ql (S tl)Ordered By: Dr. Hale on 12-17-2022 Stool Occult Blood (OSCAR) Positive [facility] Laboratory - Chemistry and C hemistry - challengeOrdered By: Jackie Myrick on 12-16-2022 Magnesium [Mass/Vol] 2.1 mg/dL 1.6-2.6 [facility] No Panel InformationOrdered By: Jackie Myrick on 12-16-2022 2.1 mg/dL 1.6-2.6 [facility] COVID-19 virus antigen assay Ordered By: Jesu Hale on 12-07-2022 SARS-CoV-2 (COVID-19) Ag IA.rapid Ql (Resp) [facility] COVID-19 virus antigen assay Ordered By: Dr. Hale on 12-07-2022 SARS-CoV-2 (COVID-19) Ag IA.rapid Ql (Resp) [facility] Basophil percentageOrdered B y: Jesu Hale on 12-06-2022 Basophil percentage 6.3 g/dL 6.4-8.2 [facility] Basophil percentage 0.40 mg/dL 0.20-1.00 [facility] Basophil percentageOrdered B y: Dr. Hale on 12-06-2022 Bilirubin [Mass/Vol] 0.40 mg/dL 0.20-1.00 [facility] Comment on above: For patients on eltr ombopag therapy, use of Dimension Warden TBIL is not recommended. Protein [Mass/Vol] 6.3 g/dL 6.4-8.2 [facility] Laboratory - Chemistry and C hemistry - challengeOrdered By: Dr. Hale on 12-06-2022 ALP [Catalytic activity/Vol] 159 U/L - [facility] ALT [Catalytic activity/Vol] 78 U/L [facility] Globulin (S) [Mass/Vol] 3.7 g/dL 2.2-4.2 [facility] No Panel InformationOrdered By: Jesu Hale on 12-06-2022 3.7 g/dL 2.2-4.2 [facility] 159 U/L [facility] 78 U/L [facility] Serum or plasma albumin elvia urement (mass/volume)Ordered By: Dr. Hale on 12-06-2022 Albumin [Mass/Vol] 2.6 g/dL 3.2-5.0 [facility] Serum or plasma albumin/glob ulin mass ratioOrdered By: Dr. Hale on 12-06-2022 Albumin/Globulin [Mass ratio] 0.7 {ratio} 0.9-2.4 [facility] Thin prep Papanicolaou smear with manual screeningOrdered By: Dr. Hale on 12-06-2022 Thin prep Papanicolaou smear with manual screening 51 U/L 15-37 [facility] Blood manual differential co mment interpretation (narrative result)Ordered By: Dr. Hale on 12-05-2022 Manual differential comment Eric (Bld) [Interp] SCANNED [facility] Comment on above: LYMPHOPENIA NOTED Hypochromatic red blood cell detectionOrdered By: Dr. Hale on 12-05-2022 Hypochromia Ql (Bld) RARE [facility] Laboratory - Hematology and Cell countsOrdered By: Dr. Hale on 12-05-2022 Anisocytosis Ql (Bld) 2+ [facility] Macrocytes detectionOrdered By: Dr. Hale on 12-05-2022 Macrocytes Ql (Bld) 2+ [facility] No Panel InformationOrdered By: Jesu Hale on 12-05-2022 2+ [facility] Blood platelet adequacy dete ction by light microscopyOrdered By: Dr. Hale on 12-04-2022 Platelets LM Ql (Bld) MOD DEC ADEQ [facility] Laboratory - Microbiology an d Antimicrobial susceptibilityOrdered By: Dr. Joe on 12-04-2022 Bacteria identified Cx Nom (Bld) GNR lactose queen's counsel [facility] Absolute lymphocyte countOrd ered By: Dr. Castaneda on 12-03-2022 Lymphocytes Auto (Unsp spec) [#/Vol] 0.42 10*3/uL 0.83-4.51 [facility] Basophil percentageOrdered B y: Sammie Castaneda on 12-03-2022 Basophil percentage 121 mg/dL 74-106 [facility] Basophil percentage 4.9 g/dL 6.4-8.2 [facility] Basophil percentage 0.50 mg/dL 0.20-1.00 [facility] Basophil percentage 138 mmol/L 136-145 [facility] Basophil percentage 3.4 mmol/L 3.5-5.1 [facility] Basophil percentage 112 mmol/L 98-107 [facility] Basophils (Bld) [#/Vol] 5.4 10*3/uL 4.4-11.0 [facility] Basophils (Bld) [#/Vol] 4.2 10*3/uL 2.0-7.7 [facility] Basophils/100 WBC (Bld) 78.1 % 47-70 [facility] Basophils/100 WBC (Bld) 0.7 % 0-5 [facility] Basophil percentageOrdered B y: Dr. Castaneda on 12-03-2022 Basophils/100 WBC (Bld) 0.2 % 0-1 [facility] Bilirubin [Mass/Vol] 0.50 mg/dL 0.20-1.00 [facility] Comment on above: For patients on eltr ombopag therapy, use of Dimension Warden TBIL is not recommended. Chloride [Moles/Vol] 112 mmol/L 98-107 [facility] Eosinophils/100 WBC (Bld) 0.7 % 0-5 [facility] Glucose [Mass/Vol] 121 mg/dL 74-106 [facility] Comment on above: Fasting Glucose resu lt from 100 to 125 mg/dL suggests IMPAIRED HOMEOSTASIS per A.D.A. criteria. Neutrophils (Bld) [#/Vol] 4.2 10*3/uL 2.0-7.7 [facility] Neutrophils/100 WBC (Bld) 78.1 % 47-70 [facility] Potassium [Moles/Vol] 3.4 mmol/L 3.5-5.1 [facility] Protein [Mass/Vol] 4.9 g/dL 6.4-8.2 [facility] Sodium [Moles/Vol] 138 mmol/L 136-145 [facility] WBC (Bld) [#/Vol] 5.4 10*3/uL 4.4-11.0 [facility] Blood erythrocytes count (nu mber/volume)Ordered By: Dr. Castaneda on 12-03-2022 RBC (Bld) [#/Vol] 2.50 10*6/uL 4.6-6.2 [facility] Blood hemoglobin measurement (mass/volume)Ordered By: Dr. Castaneda on 12-03-2022 Hemoglobin (Bld) [Mass/Vol] 8.7 g/dL 13.0-16.5 [facility] Blood lymphocytes/100 leukoc ytesOrdered By: Dr. Castaneda on 12-03-2022 Lymphocytes/100 WBC (Bld) 7.7 % 19-41 [facility] Blood manual differential co mment interpretation (narrative result)Ordered By: Dr. Castaneda on 12-03-2022 Manual differential comment Eric (Bld) [Interp] SCANNED [facility] Blood monocytes/100 leukocyt esOrdered By: Dr. Castaneda on 12-03-2022 Monocytes/100 WBC (Bld) 12.0 % 0-10 [facility] Blood platelet adequacy dete ction by light microscopyOrdered By: Dr. Castaneda on 12-03-2022 Platelets LM Ql (Bld) MKD DEC ADEQ [facility] Blood platelet mean volumeOr dered By: Dr. Castaneda on 12-03-2022 Platelet mean volume (Bld) [Entitic vol] 11.9 fL 6.2-12.0 [facility] COVID-19 virus antigen assay Ordered By: Sammie Castaneda on 12-03-2022 SARS-CoV-2 (COVID-19) Ag IA.rapid Ql (Resp) [facility] COVID-19 virus antigen assay Ordered By: Dr. Castaneda on 12-03-2022 SARS-CoV-2 (COVID-19) Ag IA.rapid Ql (Resp) [facility] Determination of erythrocyte mean corpuscular volume (MCV)Ordered By: Dr. Castaneda on 12-03-2022 MCV (RBC) [Entitic vol] 104.8 fL 80-94 [facility] Hematocrit Auto (Bld) [Volum e fraction]Ordered By: Dr. Castaneda on 12-03-2022 Hematocrit (Bld) [Volume fraction] 26.2 % 40-54 [facility] Laboratory - Chemistry and C hemistry - challengeOrdered By: Dr. Castaneda on 12-03-2022 ALP [Catalytic activity/Vol] 163 U/L 45-117 [facility] ALT [Catalytic activity/Vol] 94 U/L 16-61 [facility] CO2 [Moles/Vol] 21.0 mmol/L 21.0-32.0 [facility] Globulin (S) [Mass/Vol] 2.9 g/dL 2.2-4.2 [facility] Urea nitrogen/Creatinine [Mass ratio] 24.8 mg/mg 10-20 [facility] Laboratory - Hematology and Cell countsOrdered By: Dr. Castaneda on 12-03-2022 Erythrocyte distribution width (RBC) [Entitic vol] 60.0 fL 35.1-43.9 [facility] Erythrocyte distribution width (RBC) [Ratio] 15.5 % 11.6-14.6 [facility] Immature granulocytes/100 WBC (Bld) 1.300 % 0.0-0.9 [facility] Comment on above: IG% - Immature Granu locytes (promyelocytes, myelocytes and metamyelocytes) > 1% indicates that a LEFT SHIFT is Present. MCH (RBC) [Entitic mass] 34.8 pg 27.0-32.0 [facility] Nucleated RBC/100 WBC (Bld) [Ratio] 0 % [facility]5 [facility] [Mass/Vol]Or dered By: Dr. Castaneda on 12-03-2022 MCHC (RBC) [Mass/Vol] 33.2 g/dL 32-36 [facility] No Panel InformationOrdered By: Dr. Castaneda on 12-03-2022 Estimated Creatinine Clearance Calc 21.83 ml/min [facility] Estimated GFR (MDRD) Amer 29 mL/min >60 [facility] Comment on above: GFR Calc Estimated GFR (MDRD) Non-Af Amer 24 mL/min >60 [facility] Comment on above: Non- GFR Calc No Panel InformationOrdered By: Sammie Castaneda on 12-03-2022 34.8 pg 27.0-32.0 [facility] 15.5 % 11.6-14.6 [facility] 60.0 fl 35.1-43.9 [facility] 1.300 % 0.0-0.9 [facility] 0 % 0-5 [facility] 24 mL/min >60 [facility] 29 mL/min >60 [facility] 21.83 ml/min [facility] 24.8 RATIO 10-20 [facility] 2.9 g/dL 2.2-4.2 [facility] 163 U/L 45-117 [facility] 94 U/L 16-61 [facility] 21.0 mmol/L 21.0-32.0 [facility] Platelets bldOrdered By: Dr. Castaneda on 12-03-2022 Platelets (Bld) [#/Vol] 63 10*3/uL 150-450 [facility] Serum or plasma albumin elvia urement (mass/volume)Ordered By: Dr. Castaneda on 12-03-2022 Albumin [Mass/Vol] 2.0 g/dL 3.2-5.0 [facility] Serum or plasma albumin/glob ulin mass ratioOrdered By: Dr. Castaneda on 12-03-2022 Albumin/Globulin [Mass ratio] 0.7 {ratio} 0.9-2.4 [facility] Serum or plasma calcium elvia urement (mass/volume)Ordered By: Dr. Castaneda on 12-03-2022 Calcium [Mass/Vol] 8.2 mg/dL 8.5-10.1 [facility] Serum or plasma creatinine m easurement (mass/volume)Ordered By: Dr. Castaneda on 12-03-2022 Creatinine [Mass/Vol] 2.74 mg/dL 0.70-1.30 [facility] Comment on above: The validity of the calculated GFR & GFRAA in patients over 70 years has not been determined. Clinical correlation is essential. Serum or plasma urea nitroge n measurement (mass/volume)Ordered By: Dr. Castaneda on 12-03-2022 Urea nitrogen [Mass/Vol] 68 mg/dL 7-18 [facility] Thin prep Papanicolaou smear with manual screeningOrdered By: Dr. Castaneda on 12-03-2022 Thin prep Papanicolaou smear with manual screening 161 U/L 15-37 [facility] Thin prep Papanicolaou smear with manual screening 5 5-15 [facility] Basophil percentageOrdered B y: Kvng James on 12-02-2022 Basophil percentage 104 U/L 87-241 [facility] Basophil percentageOrdered B y: Dr. James on 12-02-2022 LDH [Catalytic activity/Vol] 104 U/L 87-241 [facility] Laboratory - Chemistry and C hemistry - challengeOrdered By: Dr. James on 12-02-2022 CK [Catalytic activity/Vol] 32 U/L 39-308 [facility] No Panel InformationOrdered By: Dr. James on 12-02-2022 Haptoglobin 307 mg/dL 38-329 [facility] Comment on above: Performed at: - [address] [id number] Director: Amaury Raya PhD, Phone: [phone] No Panel InformationOrdered By: Kvng James on 12-02-2022 32 U/L 39-308 [facility] 307 mg/dL 38-329 [facility] Blood anil cells detection b y light microscopyOrdered By: Dr. Castaneda on 12-01-2022 Armour cells LM Ql (Bld) 1+ [facility] Hypochromatic red blood cell detectionOrdered By: Dr. Castaneda on 12-01-2022 Hypochromia Ql (Bld) 1+ [facility] Laboratory - Hematology and Cell countsOrdered By: Dr. Castaneda on 12-01-2022 Anisocytosis Ql (Bld) 1+ [facility] Laboratory - Microbiology an d Antimicrobial susceptibilityOrdered By: Dr. Joe on 12-01-2022 Bacteria identified Cx Nom (Bld) Klebsiella pneumoniae sp pneum [facility] Macrocytes detectionOrdered By: Dr. Castaneda on 12-01-2022 Macrocytes Ql (Bld) 1+ [facility] No Panel InformationOrdered By: Sammie Castaneda on 12-01-2022 1+ [facility] Urine creatinine measurement (mass/volume)Ordered By: Dr. James on 12-01-2022 Creatinine (U) [Mass/Vol] 49.20 mg/dL NO RANGE EST. [facility] Urine protein measurement (m ass/volume)Ordered By: Dr. James on 12-01-2022 Protein (U) [Mass/Vol] 24.2 mg/dL 0.0-11.8 [facility] Urine protein/creatinine mas s ratioOrdered By: Dr. James on 12-01-2022 Protein/Creatinine (U) [Mass ratio] 492 mg/g CRE 0-200 [facility] Laboratory - Chemistry and C hemistry - challengeOrdered By: Dr. Castaneda on 11-30-2022 Sodium (U) [Moles/Vol] 34 mmol/L Not Establ. [facility] Free T4 [Mass/Vol] 1.20 ng/dL 0.76-1.46 [facility] Natriuretic peptide B (Bld) [Mass/Vol] 1355.2 pg/mL 0-100 [facility] No Panel InformationOrdered By: Jakob Alexander on 11-30-2022 Streptococcus pneumoniae Antigen (M [facility] No Panel InformationOrdered By: Dr. Castaneda on 11-30-2022 Urine Potassium 87.0 mmol/L Not Establ. [facility] Urine Urea Nitrogen 373 mg/dL NO RANGE EST. [facility] No Panel InformationOrdered By: Sammie Castaneda on 11-30-2022 34 mmol/L Not Establ. [facility] 87.0 mmol/L Not Establ. [facility] 373 mg/dL NO RANGE EST. [facility] 1355.2 pg/mL 0-100 [facility] 1.20 ng/dL 0.76-1.46 [facility] No Panel InformationOrdered By: Dr. Alexander on 11-30-2022 Streptococcus pneumoniae Antigen (M [facility] Review by pathologistOrdered By: Dr. Castaneda on 11-30-2022 Pathologist review Eric (Unsp spec) [Interp] Reviewed [facility] Comment on above: Previous reported re sult: Katarzyna varghese Edited by: RGOFER on 12/02/22:1328Pancytopenia.Leukopenia Macrocytic anemia.Marked ThrombocytopeniaClinical correlation necessary.Orestes Fraire M.D. 12/02/22 AMENDED REPORT 12/02/22 1328 PATH REV previously reported as: Katarzyna varghese Thin prep Papanicolaou smear with manual screeningOrdered By: Dr. Castaneda on 11-30-2022 Thin prep Papanicolaou smear with manual screening 92 mmol/L Not Establ. [facility] Urine Legionella pneumophila antigen detectionOrdered By: Jakob Alexander on 11-30-2022 L. pneumophila Ag Ql (U) [facility] Urine Legionella pneumophila antigen detectionOrdered By: Dr. Alexander on 11-30-2022 L. pneumophila Ag Ql (U) [facility] Urine osmolality measurement Ordered By: Dr. Castaneda on 11-30-2022 Osmolality (U) [Osmolality] 361 mOsm/KG >50 [facility] Comment on above: Normal Urine Referen ce Ranges Random: 50 - 1200 mOsm/kg H20 depending on fluid intake Random: >850 mOsm/kg after 12 hour fluid restriction 24 hour: ~300 - 900 mOsm/kg H2O Absolute lymphocyte countOrd ered By: Dr. Joe on 11-29-2022 Lymphocytes Auto (Unsp spec) [#/Vol] 0.21 10*3/uL 0.83-4.51 [facility] Basophil percentageOrdered B y: Dr. Joe on 11-29-2022 Basophil percentage 0 SEEN /hpf 0-5 [facility] Basophils/100 WBC (Bld) 0.5 % 0-1 [facility] Bilirubin [Mass/Vol] 0.90 mg/dL 0.20-1.00 [facility] Comment on above: For patients on eltr ombopag therapy, use of Dimension Warden TBIL is not recommended. Chloride [Moles/Vol] 111 mmol/L 98-107 [facility] Eosinophils/100 WBC (Bld) 0.0 % 0-5 [facility] Glucose [Mass/Vol] 119 mg/dL 74-106 [facility] Comment on above: Fasting Glucose resu lt from 100 to 125 mg/dL suggests IMPAIRED HOMEOSTASIS per A.D.A. criteria. Lactate [Moles/Vol] 1.7 mmol/L 0.4-2.0 [facility] Neutrophils (Bld) [#/Vol] 1.7 10*3/uL 2.0-7.7 [facility] Neutrophils/100 WBC (Bld) 82.6 % 47-70 [facility] Potassium [Moles/Vol] 4.9 mmol/L 3.5-5.1 [facility] Protein [Mass/Vol] 5.4 g/dL 6.4-8.2 [facility] Sodium [Moles/Vol] 140 mmol/L 136-145 [facility] WBC (Bld) [#/Vol] 2.0 10*3/uL 4.4-11.0 [facility] Basophil percentageOrdered B y: Lupe Joe on 11-29-2022 Basophil percentage 1.7 mmol/L 0.4-2.0 [facility] Bilirubin Test strip Ql (U)O rdered By: Dr. Joe on 11-29-2022 Bilirubin Ql (U) Negative Negative [facility] Blood band neutrophil count as percentage of total leukocytesOrdered By: Dr. Alexander on 11-29-2022 Band form neutrophils/100 WBC (Bld) 20 % 0-5 [facility] Blood erythrocytes count (nu mber/volume)Ordered By: Dr. Joe on 11-29-2022 RBC (Bld) [#/Vol] 2.31 10*6/uL 4.6-6.2 [facility] Blood hemoglobin measurement (mass/volume)Ordered By: Dr. Joe on 11-29-2022 Hemoglobin (Bld) [Mass/Vol] 8.1 g/dL 13.0-16.5 [facility] Blood lymphocytes/100 leukoc ytesOrdered By: Dr. Alexander on 11-29-2022 Lymphocytes/100 WBC (Bld) 18 % 19-41 [facility] Blood lymphocytes/100 leukoc ytesOrdered By: Dr. Joe on 11-29-2022 Lymphocytes/100 WBC (Bld) 10.4 % 19-41 [facility] Blood metamyelocytes/100 khurram kocytesOrdered By: Dr. Alexander on 11-29-2022 Metamyelocytes/100 WBC (Bld) 17 % 0-1 [facility] Blood monocytes/100 leukocyt esOrdered By: Dr. Alexander on 11-29-2022 Monocytes/100 WBC (Bld) 6 % 0-10 [facility] Blood monocytes/100 leukocyt esOrdered By: Dr. Joe on 11-29-2022 Monocytes/100 WBC (Bld) 6.5 % 0-10 [facility] Blood platelet adequacy dete ction by light microscopyOrdered By: Dr. Joe on 11-29-2022 Platelets LM Ql (Bld) MOD DEC ADEQ [facility] Blood platelet mean volumeOr dered By: Dr. Joe on 11-29-2022 Platelet mean volume (Bld) [Entitic vol] 10.6 fL 6.2-12.0 [facility] Blood segmented neutrophils/ [address]: [address] Alexander on 11-29-2022 Segmented neutrophils/100 WBC (Bld) 39 % 47-70 [facility] Determination of erythrocyte mean corpuscular volume (MCV)Ordered By: Dr. Joe on 11-29-2022 MCV (RBC) [Entitic vol] 108.2 fL 80-94 [facility] Hematocrit Auto (Bld) [Volum e fraction]Ordered By: Dr. Joe on 11-29-2022 Hematocrit (Bld) [Volume fraction] 25.0 % 40-54 [facility] Influenza virus A and B and SARS-CoV-2 (COVID-19) Ag panel - Upper respiratory specimOrdered By: Dr. Joe on 11-29-2022 SARS-CoV-2 (COVID-19) RNA SANTANA+probe Ql (Resp) [facility] Iron measurement (mass/mass) Ordered By: Dr. Alexander on 11-29-2022 Iron (Unsp spec) [Mass/Mass] 6 ug/dL 65-175 [facility] Ketones Test strip Ql (U)Ord ered By: Dr. Joe on 11-29-2022 Ketones Ql (U) Negative Negative [facility] Laboratory - Chemistry and C hemistry - challengeOrdered By: Dr. Alexander on 11-29-2022 Cobalamin (Vitamin B12) [Mass/Vol] 228 pg/mL 211-911 [facility] Laboratory - Chemistry and C hemistry - challengeOrdered By: Dr. Joe on 11-29-2022 ALP [Catalytic activity/Vol] 68 U/L 45-117 [facility] ALT [Catalytic activity/Vol] 17 U/L 16-61 [facility] CO2 [Moles/Vol] 22.0 mmol/L 21.0-32.0 [facility] Globulin (S) [Mass/Vol] 2.4 g/dL 2.2-4.2 [facility] Urea nitrogen/Creatinine [Mass ratio] 16.1 mg/mg 10-20 [facility] Laboratory - Hematology and Cell countsOrdered By: Dr. Joe on 11-29-2022 Anisocytosis Ql (Bld) 1+ [facility] Erythrocyte distribution width (RBC) [Entitic vol] 62.1 fL 35.1-43.9 [facility] Erythrocyte distribution width (RBC) [Ratio] 15.7 % 11.6-14.6 [facility] Immature granulocytes/100 WBC (Bld) 0.000 % 0.0-0.9 [facility] Comment on above: IG% - Immature Granu locytes (promyelocytes, myelocytes and metamyelocytes) > 1% indicates that a LEFT SHIFT is Present. MCH (RBC) [Entitic mass] 35.1 pg 27.0-32.0 [facility] Nucleated RBC/100 WBC (Bld) [Ratio] 0 % 0-5 [facility] Laboratory - Microbiology an d Antimicrobial susceptibilityOrdered By: Lupe Joe on 11-29-2022 Bacteria identified Cx Nom (Bld) GNR lactose queen's counsel [facility] Bacteria identified Cx Nom (Bld) Klebsiella pneumoniae sp pneum [facility] MCHC Auto (RBC) [Mass/Vol]Or dered By: Dr. Joe on 11-29-2022 MCHC (RBC) [Mass/Vol] 32.4 g/dL 32-36 [facility] Macrocytes detectionOrdered By: Dr. Joe on 11-29-2022 Macrocytes Ql (Bld) 2+ [facility] Mucus LM Ql (Urine sed)Order ed By: Dr. Joe on 11-29-2022 Mucus Ql (Urine sed) 0 SEEN /hpf [facility] Nitrite Test strip Ql (U)Ord ered By: Dr. Joe on 11-29-2022 Nitrite Ql (U) Negative Negative [facility] No Panel InformationOrdered By: Dr. Alexander on 11-29-2022 Troponin I High Sensitivity 92 pg/mL 3.0-78.0 [facility] Comment on above: Please Note: New Linnette t Units and Gender Specific Reference Ranges. For more information see Policy Stat Procedure Warden High Sensitivity Troponin (TNIH) and attachments. Thyroid Stimulating Hormone (TSH) 0.75 uIU/mL 0.358-3.74 [facility] Total Iron Binding Capacity 187 ug/dL 250-450 [facility] No Panel InformationOrdered By: Jakob Alexander on 11-29-2022 92 pg/mL 3.0-78.0 [facility] 0.75 uIU/mL 0.358-3.74 [facility] 228 pg/mL 211-911 [facility] 187 ug/dL 250-450 [facility] No Panel InformationOrdered By: Lupe Joe on 11-29-2022 GNR lactose queen's counsel [facility] Klebsiella pneumonia e sp pneum [facility] < 3.0 mg/dL [facility] No Panel InformationOrdered By: Dr. Joe on 11-29-2022 Estimated Creatinine Clearance Calc 23.11 ml/min [facility] Estimated GFR (MDRD) Amer 30 mL/min >60 [facility] Comment on above: GFR Calc Estimated GFR (MDRD) Non-Af Amer 25 mL/min >60 [facility] Comment on above: Non- GFR Calc Ethyl Alcohol Level < 3.0 mg/dL [facility] Comment on above: The serum:whole bloo d ethanol ratio is approximately 1.14and varies slightly with hematocrit. Medical Alcohol reference interval and critical value innon-tolerant individuals; 50 - 100 Impairment 100 Intoxication 100 - 250 Severe Poisoning 250 - 400 Deep/possible fatal coma Troponin I High Sensitivity 134 pg/mL 3.0-78.0 [facility] Comment on above: Critical Result(s) C alled at: 04:06:34 11/29/2022 by: JEANIE Larios RN ER. Results read back by same. Please Note: New Test Units and Gender Specific Reference Ranges. For more information see Policy Stat Procedure Warden High Sensitivity Troponin (TNIH) and attachments. Ovalocyte detectionOrdered B y: Dr. Alexander on 11-29-2022 Ovalocytes LM Ql (Bld) RARE [facility] Platelets bldOrdered By: Dr. Joe on 11-29-2022 Platelets (Bld) [#/Vol] 55 10*3/uL 150-450 [facility] Protein Test strip Ql (U)Ord ered By: Dr. Joe on 11-29-2022 Protein Ql (U) 100 mg/dl Negative [facility] Review by pathologistOrdered By: Dr. Joe on 11-29-2022 Pathologist review Eric (Unsp spec) [Interp] May foll [facility] Serum or plasma albumin elvia urement (mass/volume)Ordered By: Dr. Joe on 11-29-2022 Albumin [Mass/Vol] 3.0 g/dL 3.2-5.0 [facility] Serum or plasma albumin/glob ulin mass ratioOrdered By: Dr. Joe on 11-29-2022 Albumin/Globulin [Mass ratio] 1.2 {ratio} 0.9-2.4 [facility] Serum or plasma calcium elvia urement (mass/volume)Ordered By: Dr. Joe on 11-29-2022 Calcium [Mass/Vol] 8.3 mg/dL 8.5-10.1 [facility] Serum or plasma creatinine m easurement (mass/volume)Ordered By: Dr. Joe on 11-29-2022 Creatinine [Mass/Vol] 2.67 mg/dL 0.70-1.30 [facility] Comment on above: The validity of the calculated GFR & GFRAA in patients over 70 years has not been determined. Clinical correlation is essential. Serum or plasma ferritin pedro luis surement (mass/volume)Ordered By: Dr. Alexander on 11-29-2022 Ferritin [Mass/Vol] 578 ng/mL 26-388 [facility] Serum or plasma folate measu rement (mass/volume)Ordered By: Dr. Alexander on 11-29-2022 Folate [Mass/Vol] 5.50 ng/mL 3.1-55.4 [facility] Serum or plasma iron saturat ion measurement (mass fraction)Ordered By: Dr. Alexander on 11-29-2022 Iron saturation [Mass fraction] 3.2 % 15.0-55.0 [facility] Serum or plasma urea nitroge n measurement (mass/volume)Ordered By: Dr. Joe on 11-29-2022 Urea nitrogen [Mass/Vol] 43 mg/dL 7-18 [facility] Squamous epithelial cells de tection in urine sediment by light microscopyOrdered By: Dr. Joe on 11-29-2022 Epithelial cells.squamous LM Ql (Urine sed) 0 SEEN /hpf 0-5 [facility] Thin prep Papanicolaou smear with manual screeningOrdered By: Dr. 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 Joe on 11-29-2022 Thin prep Papanicolaou smear with manual screening 35 U/L 15-37 [facility] Thin prep Papanicolaou smear with manual screening 7 5-15 [facility] Total cell countOrdered By: Dr. Alexander on 11-29-2022 Cells counted Molgen (Bld/Tiss) [#] 100 MANUAL DIFF [facility] Urine blood detectionOrdered By: Dr. Joe on 11-29-2022 RBC Ql (U) Negative Negative [facility] RBC Ql (U) 0 SEEN /hpf 0-5 [facility] Urine clarityOrdered By: Dr. Joe on 11-29-2022 Clarity (U) Clear Clear [facility] Urine color determinationOrd ered By: Dr. Joe on 11-29-2022 Color (U) Yellow Yellow [facility] Urine glucose detectionOrder ed By: Dr. Joe on 11-29-2022 Glucose Ql (U) Normal mg/dl Normal [facility] Urine leukocyte esterase det ection by dipstickOrdered By: Dr. Joe on 11-29-2022 Leukocyte esterase Test strip Ql (U) Negative Negative [facility] Urine pHOrdered By: Dr. Rossana carballo on 11-29-2022 pH (U) 5.0 [pH] 5.0 - 8.0 [facility] Urine sediment bacteria coun t by microscopy (number/high power field)Ordered By: Dr. Joe on 11-29-2022 Bacteria LM.HPF (Urine sed) [#/Area] 1 /[HPF] None Seen [facility] Urine specific gravity measu rementOrdered By: Dr. Joe on 11-29-2022 Specific gravity (U) [Rel density] 1.015 1.002-1.03 0 [facility] Urobilinogen Auto test strip Ql (U)Ordered By: Dr. Joe on 11-29-2022 Urobilinogen Ql (U) Normal mg/dl Normal [facility] No Panel InformationOrdered By: Teresa Pop on 10-17-2022 Thyroid Stimulating Hormone (TSH) 1.80 uIU/mL 0.358-3.74 [facility] 1.80 uIU/mL 0.358-3.74 [facility] Basophil percentageOrdered B y: Dr. Santacruz on 08-23-2022 Chloride [Moles/Vol] 113 mmol/L 98-107 [facility] Cholesterol [Mass/Vol] 152 mg/dL <200 [facility] Comment on above: <200 mg/dL Desirable 200-240 mg/dL Borderline >240 mg/dL High Risk Glucose [Mass/Vol] 101 mg/dL 74-106 [facility] Comment on above: Fasting Glucose resu lt from 100 to 125 mg/dL suggests IMPAIRED HOMEOSTASIS per A.D.A. criteria. Potassium [Moles/Vol] 4.7 mmol/L 3.5-5.1 [facility] Sodium [Moles/Vol] 141 mmol/L 136-145 [facility] Triglyceride [Mass/Vol] 63 mg/dL <199 [facility] Comment on above: The drugs N-Acetylcy steine and Metamizole may falsely depress this assay.Serum Triglycerides Reference Interval Normal <150 mg/dL Borderline high 150 - 199 mg/dL High 200 - 499 mg/dL Very High > or = 500 mg/dL Laboratory - Chemistry and C hemistry - challengeOrdered By: Dr. Santacruz on 08-23-2022 ALT [Catalytic activity/Vol] 16 U/L 16-61 [facility] CO2 [Moles/Vol] 24.0 mmol/L 21.0-32.0 [facility] Urea nitrogen/Creatinine [Mass ratio] 19.3 mg/mg 10-20 [facility] No Panel InformationOrdered By: Dr. Santacruz on 08-23-2022 Estimated GFR (MDRD) Amer 33 mL/min >60 [facility] Comment on above: GFR Calc Estimated GFR (MDRD) Non-Af Amer 27 mL/min >60 [facility] Comment on above: Non- GFR Calc Serum or plasma calcium elvia urement (mass/volume)Ordered By: Dr. Santacruz on 08-23-2022 Calcium [Mass/Vol] 8.9 mg/dL 8.5-10.1 [facility] Serum or plasma cholesterol in HDL measurement (mass/volume)Ordered By: Dr. Santacruz on 08-23-2022 Cholesterol in HDL [Mass/Vol] 84 mg/dL >40 [facility] Comment on above: The drugs N-Acetylcy steine and Metamizole may falsely depress this assay. Reference Range HDL <40 mg/dL Low HDL Cholesterol HDL >or= 60 mg/dL High HDL Cholesterol Serum or plasma cholesterol in VLDL measurement (mass/volume)Ordered By: Dr. Santacruz on 08-23-2022 Cholesterol in VLDL [Mass/Vol] 13 mg/dL 5-40 [facility] Serum or plasma creatinine m easurement (mass/volume)Ordered By: Dr. Santacruz on 08-23-2022 Creatinine [Mass/Vol] 2.44 mg/dL 0.70-1.30 [facility] Comment on above: The validity of the calculated GFR & GFRAA in patients over 70 years has not been determined. Clinical correlation is essential. Serum or plasma low density lipoprotein (LDL) cholesterol measurement (mass/volume)Ordered By: Dr. Santacruz on 08-23-2022 Cholesterol in LDL [Mass/Vol] 55 mg/dL 0-130 [facility] Serum or plasma urea nitroge n measurement (mass/volume)Ordered By: Dr. Santacruz on 08-23-2022 Urea nitrogen [Mass/Vol] 47 mg/dL 7-18 [facility] Thin prep Papanicolaou smear with manual screeningOrdered By: Dr. Santacruz on 08-23-2022 Thin prep Papanicolaou smear with manual screening 22 U/L 15-37 [facility] Thin prep Papanicolaou smear with manual screening 4 5-15 [facility] Absolute lymphocyte countOrd ered By: Dr. Cazares on 05-20-2022 Lymphocytes Auto (Unsp spec) [#/Vol] 0.54 10*3/uL 0.83-4.51 [facility] Basophil percentageOrdered B y: Dr. Cazares on 05-20-2022 Basophils/100 WBC (Bld) 1.0 % 0-1 [facility] Chloride [Moles/Vol] 110 mmol/L 98-107 [facility] Eosinophils/100 WBC (Bld) 2.0 % 0-5 [facility] Glucose [Mass/Vol] 103 mg/dL 74-106 [facility] Comment on above: Fasting Glucose resu lt from 100 to 125 mg/dL suggests IMPAIRED HOMEOSTASIS per A.D.A. criteria. Neutrophils (Bld) [#/Vol] 2.9 10*3/uL 2.0-7.7 [facility] Neutrophils/100 WBC (Bld) 72.5 % 47-70 [facility] Potassium [Moles/Vol] 4.8 mmol/L 3.5-5.1 [facility] Sodium [Moles/Vol] 141 mmol/L 136-145 [facility] WBC (Bld) [#/Vol] 4.0 10*3/uL 4.4-11.0 [facility] Blood erythrocytes count (nu mber/volume)Ordered By: Dr. Cazares on 05-20-2022 RBC (Bld) [#/Vol] 3.14 10*6/uL 4.6-6.2 [facility] Blood hemoglobin measurement (mass/volume)Ordered By: Dr. Cazares on 05-20-2022 Hemoglobin (Bld) [Mass/Vol] 11.6 g/dL 13.0-16.5 [facility] Blood lymphocytes/100 leukoc ytesOrdered By: Dr. Cazares on 05-20-2022 Lymphocytes/100 WBC (Bld) 13.4 % 19-41 [facility] Blood manual differential co mment interpretation (narrative result)Ordered By: Dr. Cazares on 05-20-2022 Manual differential comment Eric (Bld) [Interp] See comment [facility] Comment on above: LYMPHOPENIA NOTED Blood monocytes/100 leukocyt esOrdered By: Dr. Cazares on 05-20-2022 Monocytes/100 WBC (Bld) 10.9 % 0-10 [facility] Blood platelet mean volumeOr dered By: Dr. Cazares on 05-20-2022 Platelet mean volume (Bld) [Entitic vol] 10.8 fL 6.2-12.0 [facility] Determination of erythrocyte mean corpuscular volume (MCV)Ordered By: Dr. Cazares on 05-20-2022 MCV (RBC) [Entitic vol] 108.6 fL 80-94 [facility] Hematocrit Auto (Bld) [Volum e fraction]Ordered By: Dr. Cazares on 05-20-2022 Hematocrit (Bld) [Volume fraction] 34.1 % 40-54 [facility] Laboratory - Chemistry and C hemistry - challengeOrdered By: Dr. Cazares on 05-20-2022 CO2 [Moles/Vol] 26.0 mmol/L 21.0-32.0 [facility] Urea nitrogen/Creatinine [Mass ratio] 16.5 mg/mg 10-20 [facility] Laboratory - Hematology and Cell countsOrdered By: Dr. Cazares on 05-20-2022 Erythrocyte distribution width (RBC) [Entitic vol] 58.4 fL 35.1-43.9 [facility] Erythrocyte distribution width (RBC) [Ratio] 14.6 % 11.6-14.6 [facility] Immature granulocytes/100 WBC (Bld) 0.200 % 0.0-0.9 [facility] Comment on above: IG% - Immature Granu locytes (promyelocytes, myelocytes and metamyelocytes) > 1% indicates that a LEFT SHIFT is Present. MCH (RBC) [Entitic mass] 36.9 pg 27.0-32.0 [facility] Nucleated RBC/100 WBC (Bld) [Ratio] 0 % 0-5 [facility] MCHC Auto (RBC) [Mass/Vol]Or dered By: Dr. Cazares on 05-20-2022 MCHC (RBC) [Mass/Vol] 34.0 g/dL 32-36 [facility] No Panel InformationOrdered By: Dr. Cazares on 05-20-2022 Estimated Creatinine Clearance Calc 30.46 ml/min [facility] Estimated GFR (MDRD) Amer 40 mL/min >60 [facility] Comment on above: GFR Calc Estimated GFR (MDRD) Non-Af Amer 33 mL/min >60 [facility] Comment on above: Non- GFR Calc Platelets bldOrdered By: Dr. Cazares on 05-20-2022 Platelets (Bld) [#/Vol] 107 10*3/uL 150-450 [facility] Review by pathologistOrdered By: Dr. Cazares on 05-20-2022 Pathologist review Eric (Unsp spec) [Interp] Reviewed [facility] Comment on above: Previous reported re sult: Katarzyna varghese Edited by: RGOFER on 05/22/22:0933Pancytopenia.Leukopenia Macrocytic anemia.Mild ThrombocytopeniaClinical correlation necessary.Orestes Fraire M.D. 05/22/22 AMENDED REPORT 05/22/22 0933 PATH REV previously reported as: Katarzyna varghese Serum or plasma calcium elvia urement (mass/volume)Ordered By: Dr. Cazares on 05-20-2022 Calcium [Mass/Vol] 9.0 mg/dL 8.5-10.1 [facility] Serum or plasma creatinine m easurement (mass/volume)Ordered By: Dr. Cazares on 05-20-2022 Creatinine [Mass/Vol] 2.06 mg/dL 0.70-1.30 [facility] Comment on above: The validity of the calculated GFR & GFRAA in patients over 70 years has not been determined. Clinical correlation is essential. Serum or plasma urea nitroge n measurement (mass/volume)Ordered By: Dr. Cazares on 05-20-2022 Urea nitrogen [Mass/Vol] 34 mg/dL 7-18 [facility] Thin prep Papanicolaou smear with manual screeningOrdered By: Dr. Cazares on 05-20-2022 Thin prep Papanicolaou smear with manual screening 5 5-15 [facility] Absolute lymphocyte counton 03-27-2022 Lymphocytes Auto (Unsp spec) [#/Vol] 0.60 10*3/uL 0.83-4.51 [facility] Work Phone: [phone] Basophil percentageon 2021 Basophils/100 WBC (Bld) 0.7 % 0-1 [facility] Work Phone: [phone] Bilirubin [Mass/Vol] 0.60 mg/dL 0.20-1.00 [facility] Work Phone: [phone] Comment on above: For patients on eltr ombopag therapy, use of Dimension Warden TBIL is not recommended. Chloride [Moles/Vol] 113 mmol/L 98-107 [facility] Work Phone: Eosinophils/100 WBC (Bld) 2.7 % 0-5 [facility] Work Phone: [phone] Glucose [Mass/Vol] 100 mg/dL 74-106 [facility] Work Phone: Comment on above: Fasting Glucose resu lt from 100 to 125 mg/dL suggests IMPAIRED HOMEOSTASIS per A.D.A. criteria. Neutrophils (Bld) [#/Vol] 2.9 10*3/uL 2.0-7.7 [facility] Work Phone: Neutrophils/100 WBC (Bld) 71.1 % 47-70 [facility] Work Phone: [phone] Potassium [Moles/Vol] 5.2 mmol/L 3.5-5.1 [facility] Work Phone: Protein [Mass/Vol] 6.5 g/dL 6.4-8.2 [facility] Work Phone: [phone] Sodium [Moles/Vol] 144 mmol/L 136-145 [facility] Work Phone: [phone] WBC (Bld) [#/Vol] 4.1 10*3/uL 4.4-11.0 [facility] Work Phone: [phone] Blood erythrocytes count (nu mber/volume)on 03-27-2022 RBC (Bld) [#/Vol] 3.18 10*6/uL 4.6-6.2 [facility] Work Phone: [phone] Blood hemoglobin measurement (mass/volume)on 03-27-2022 Hemoglobin (Bld) [Mass/Vol] 11.2 g/dL 13.0-16.5 [facility] Work Phone: [phone] Blood lymphocytes/100 leukoc yteson 03-27-2022 Lymphocytes/100 WBC (Bld) 14.6 % 19-41 [facility] Work Phone: [phone] Blood manual differential co mment interpretation (narrative result)Ordered By: Mathieu Mcintyre on 03-27-2022 Manual differential comment Eric (Bld) [Interp] SCANNED [facility] Comment on above: LYMPHOPENIA NOTED Blood monocytes/100 leukocyt eson 03-27-2022 Monocytes/100 WBC (Bld) 10.7 % 0-10 [facility] Work Phone: [phone] Blood platelet mean volumeon 03-27-2022 Platelet mean volume (Bld) [Entitic vol] 10.2 fL 6.2-12.0 [facility] Work Phone: [phone] Determination of erythrocyte mean corpuscular volume (MCV)on 03-27-2022 MCV (RBC) [Entitic vol] 112.6 fL 80-94 [facility] Work Phone: [phone] Hematocrit Auto (Bld) [Volum e fraction]on 03-27-2022 Hematocrit (Bld) [Volume fraction] 35.8 % 40-54 [facility] Work Phone: Iron measurement (mass/mass) on 03-27-2022 Iron (Unsp spec) [Mass/Mass] 80 ug/dL 65-175 [facility] Work Phone: [phone] Laboratory - Chemistry and C hemistry - challengeon 03-27-2022 ALP [Catalytic activity/Vol] 102 U/L 45-117 [facility] Work Phone: ALT [Catalytic activity/Vol] 15 U/L 16-61 [facility] Work Phone: [phone] CO2 [Moles/Vol] 26.0 mmol/L 21.0-32.0 [facility] Work Phone: [phone] Globulin (S) [Mass/Vol] 2.8 g/dL 2.2-4.2 [facility] Work Phone: [phone] Urea nitrogen/Creatinine [Mass ratio] 17.9 mg/mg 10-20 [facility] Work Phone: Laboratory - Chemistry and C hemistry - challengeOrdered By: Mathieu Mcintyre on 03-27-2022 Cobalamin (Vitamin B12) [Mass/Vol] 260 pg/mL 211-911 [facility] Laboratory - Hematology and Cell countson 03-27-2022 Erythrocyte distribution width (RBC) [Entitic vol] 63.0 fL 35.1-43.9 [facility] Work Phone: [phone] Erythrocyte distribution width (RBC) [Ratio] 14.9 % 11.6-14.6 [facility] Work Phone: [phone] Immature granulocytes/100 WBC (Bld) 0.200 % 0.0-0.9 [facility] Work Phone: [phone] Comment on above: IG% - Immature Granu locytes (promyelocytes, myelocytes and metamyelocytes) > 1% indicates that a LEFT SHIFT is Present. MCH (RBC) [Entitic mass] 35.2 pg 27.0-32.0 [facility] Work Phone: [phone] Nucleated RBC/100 WBC (Bld) [Ratio] 0 % 0-5 [facility] Work Phone: MCHC Auto (RBC) [Mass/Vol]on 03-27-2022 MCHC (RBC) [Mass/Vol] 31.3 g/dL 32-36 [facility] Work Phone: No Panel Informationon 03-27 Estimated GFR (MDRD) Amer 37 mL/min >60 [facility] Work Phone: Comment on above: GFR Calc Estimated GFR (MDRD) Non-Af Amer 30 mL/min >60 [facility] Work Phone: Comment on above: Non- GFR Calc Total Iron Binding Capacity 255 ug/dL 250-450 [facility] Work Phone: No Panel InformationOrdered By: Mathieu Mcintyre on 03-27-2022 Miscellaneous Test See comment [facility] Comment on above: TEST RESULT [facility] panel: Leukemia/LymphomaFlow InterpretationNo significant immunophenotypic abnormality detectedClinical [...] CD3 NormalCD4 Normal CD5 NormalCD7 Normal CD8 NuavhyBP44 Normal CD11b NyvimoZM04 Normal CD14 RoohdfYL23 Normal CD19 XfulynCC68 Normal CD33 Normal CD34 Normal CD38 ZagstnOI76 Normal CD56 QvuwsfDY73 Normal CD117 NormalHLA-DR Normal KAPPA NormalLAMBDA Normal CD64 NormalResulting Path Name Moustapha Butcher M.D. Ph.DComment: Each antibody in this assay was utilized to assess for potential abnormalities of studied cell populations or to characterize identified abnormalities.This test was developed and its performance characteristics determined by [employer]. It has not been cleared or approved by the U.S. Food and Drug Administration.The FDA has determined that such clearance or approval is not necessary. This test is used for clinical purposes. It should not be regarded as investigational or for research. ____ TESTING PERFORMED AT [facility]. ORIGINAL REPORT ON FILE IN LAB CONTAINS [...] FISH RESULTS: CCND1/IGH: NORMAL . nuc javad 11q13(EISO3e5),14q32(IGHx2)[100] ABIMAEL: NORMAL nuc javad 11q22.3(ATMx2)[100] . 12cen: NORMAL . nuc javad 12cen(L99Q7e6)[100] . 13q: NORMAL . nuc javad 13q14.3(DLEUx2),13q34(DDJL6e3)[100] . TP53: NORMAL . nuc ajvad 17p13.1(TP53x2)[100] This analysis is limited to abnormalities detectableby the specific probes included in the study. FISH resultsshould be interpreted within the context of a fullcytogenetic analysis and hematologic evaluation. REFERENCES:. [place] N[place],(2013) Adv Exp Med Biol 792:193-214.PMID#[id number] . Phi zñuiga al.,(2011) Clin Lab Med 31:649-58.PMID#[id number] This test was developed and its performacecharacteristics determined by [employer] ([employer]). It has not been cleared orapproved by the U.S. Food and Drug Administration. The DNAprobe vendor for this study was [employer] ([employer]). TESTING PERFORMED AT [facility]. ORIGINAL REPORT ON FILE IN LAB CONTAINS ADDITIONAL TEST SITE INFORMATION. 260 pg/mL 211-911 [facility] See comment [facility] Platelets bldon 03-27-2022 Platelets (Bld) [#/Vol] 108 10*3/uL 150-450 [facility] Work Phone: Review by pathologistOrdered By: Mathieu Mcintyre on 03-27-2022 Pathologist review Eric (Unsp spec) [Interp] Reviewed [facility] Comment on above: Previous reported re sult: Katarzyna varghese Edited by: OMI on 03/28/22:1326Pancytopenia.Leukopenia Mild Macrocytic anemia.Mild ThrombocytopeniaClinical correlation necessary.Orestes Fraire M.D. 03/28/22 AMENDED REPORT 03/28/22 1326 PATH REV previously reported as: Katarzyna varghese Serum or plasma albumin elvia urement (mass/volume)on 03-27-2022 Albumin [Mass/Vol] 3.7 g/dL 3.2-5.0 [facility] Work Phone: Serum or plasma albumin/glob ulin mass ratioon 03-27-2022 Albumin/Globulin [Mass ratio] 1.3 {ratio} 0.9-2.4 [facility] Work Phone: Serum or plasma calcium elvia urement (mass/volume)on 03-27-2022 Calcium [Mass/Vol] 8.8 mg/dL 8.5-10.1 [facility] Work Phone: Serum or plasma creatinine m easurement (mass/volume)on 03-27-2022 Creatinine [Mass/Vol] 2.23 mg/dL 0.70-1.30 [facility] Work Phone: Comment on above: The validity of the calculated GFR & GFRAA in patients over 70 years has not been determined. Clinical correlation is essential. Serum or plasma ferritin pedro luis surement (mass/volume)on 03-27-2022 Ferritin [Mass/Vol] 293 ng/mL 26-388 [facility] Work Phone: Serum or plasma folate measu rement (mass/volume)Ordered By: Mathieu Mcintyre on 03-27-2022 Folate [Mass/Vol] 17.60 ng/mL 3.1-55.4 [facility] Serum or plasma iron saturat ion measurement (mass fraction)on 03-27-2022 Iron saturation [Mass fraction] 31.4 % 15.0-55.0 [facility] Work Phone: Serum or plasma urea nitroge n measurement (mass/volume)on 03-27-2022 Urea nitrogen [Mass/Vol] 40 mg/dL 7-18 [facility] Work Phone: Thin prep Papanicolaou smear with manual screeningon 03-27-2022 Thin prep Papanicolaou smear with manual screening 18 U/L 15-37 [facility] Work Phone: Thin prep Papanicolaou smear with manual screening 5 5-15 [facility] Work Phone: Thin prep Papanicolaou smear with manual screening 160 U/L 87-241 [facility] Work Phone: Laboratory - Hematology and Cell countson 10-03-2021 Anisocytosis Ql (Bld) 1+ [facility] Work Phone: Hemoglobin in reticulocytes (mass per reticulocyte)on 06-06-2021 Hemoglobin (Reticulocytes) [Entitic mass] 36.0 pg High 30-35 [facility] No Panel Informationon 06-06 Haptoglobin 77 mg/dL 34-355 [facility] Comment on above: Performed at: [facility] [address] [facility] [address] [place], [place] [id number] Director: Amaury Raya PhD, Phone: [phone] Immature Reticulocyte Fraction 10.20 % 3.00-15.90 [facility] Reticulocyte Count 1.60 % High 0.5-1.5 [facility] 1.60 % High 0.5-1.5 [facility] 10.20 % 3.00-15.90 [facility] 77 mg/dL 34-355 [facility] Ovalocyte detectionon 2020 Ovalocytes LM Ql (Bld) 1+ [facility] Serum or plasma erythropoiet in (EPO) measurement (units/volume)on 06-06-2021 Erythropoietin (EPO) Qn 15.0 mIU/mL 2.6-18.5 [facility] Comment on above: Singly el DxI 800 Immunoassay SystemValues obtained with different assay methods or kits cannotbe used interchangeably. Results cannot be interpreted asabsolute evidence of the presence or absence of malignantdisease. Stool gastrointestinal hemog lobin detection by immunologic methodon 05-17-2021 Lower GI hemoglobin IA Ql (Stl) [facility] Albumin Elph [Mass/Vol]on Albumin [Mass/Vol] 3.8 g/dL 2.9-4.4 [facility] Blood polychromasia detectio n by light microscopyon 05-16-2021 Polychromasia LM Ql (Bld) 1+ [facility] Erythrocyte sedimentation ra adelfo 05-16-2021 ESR (Bld) [Velocity] mm/h 0-20 [facility] Comment on above: Previous reported re sult: 1 mm/hrEdited by: DREW on 05/17/21:0229 AMENDED REPORT 05/17/21228 SED RATE previously reported as: 1 mm/hr Interpretation of serum or p lasma protein pattern by immunofixation (narrative resulton 05-16-2021 Protein Fractions Immunofixation Eric [Interp] See comment [facility] Comment on above: Not Observed Macrocytes detectionon 05-16 Macrocytes Ql (Bld) 1+ [facility] No Panel Informationon 05-16 Addendum Document Comment . [facility] Comment on above: Protein electrophore sis scan will follow via computer,mail, or drying equipment operator delivery. Free Lambda Light Chains, Quant 15.6 mg/L 5.7-26.3 [facility] 15.6 mg/L 5.7-26.3 [facility] Serum mxfyo-[id number]-upfxchli measu rement by electrophoresison 05-16-2021 Alpha 1 globulin Elph [Mass/Vol] 0.4 g/dL 0.0-0.4 [facility] Alpha 1 globulin Elph [Mass/Vol] 0.5 g/dL 0.4-1.0 [facility] Serum immunoglobulin kappa l ight chains/immunoglobulin lambda light chains mass ratioon 05-16-2021 Immunoglobulin light chains.kappa/Immunoglob ulin light chains.lambda (S) [Mass ratio] 1.62 0.26-1.65 [facility] Comment on above: Performed at: [facility] [place] Self Representation Document Preparation [place] [id number] Director: Amaury Raya PhD, Phone: [phone] Serum or plasma IgA measurem ent (mass/volume)on 05-16-2021 IgA [Mass/Vol] 75 mg/dL 61-437 [facility] Serum or plasma IgG measurem ent (mass/volume)on 05-16-2021 IgG [Mass/Vol] 590 mg/dL Low 603-9328 [facility] Serum or plasma IgM measurem ent (mass/volume)on 05-16-2021 IgM [Mass/Vol] 9 mg/dL Low 15-143 [facility] Comment on above: Result confirmed on concentration. Serum or plasma beta globuli n measurement by electrophoresis (mass/volume)on 05-16-2021 Beta globulin Elph [Mass/Vol] 0.7 g/dL 0.7-1.3 [facility] Serum or plasma gamma globul in measurement by electrophoresis (mass/volume)on 05-16-2021 Gamma globulin Elph [Mass/Vol] 0.5 g/dL 0.4-1.8 [facility] Serum or plasma immunoelectr ophoresis interpretation (nominal result)on 05-16-2021 Interpretation IEP [Interp] Comment . [facility] Comment on above: No monoclonality det ected. Serum or plasma immunoglobul in kappa light chains measurement (mass/volume)on 05-16-2021 Immunoglobulin light chains.kappa [Mass/Vol] 25.3 mg/L High 3.3-19.4 [facility] Thin prep Papanicolaou smear with manual screeningon 05-16-2021 Thin prep Papanicolaou smear with manual screening 1+ [facility] Thin prep Papanicolaou smear with manual screening 1.9 0.7-1.7 [facility] Total protein bloodon 2020 Protein [Mass/Vol] 5.9 g/dL Low 6.0-8.5 [facility] CULTURE FUNGUSon 10-10-2020 CULTURE FUNGUS CULTURE FUNGUS --> S tatus: F No fungus isolated after 21 days. Normal [facility] Comment on above: Performed By: #### C /TBC #### [facility] [address], [place] Basic Metabolic Panelon 09-28 Calcium [Mass/Vol] 8.4 mg/dL Normal 8.4-10.4 [facility] Comment on above: Performed By: #### B NP3, BMP3, MG3 #### [facility] [address], [place] Glucose [Mass/Vol] 102 mg/dL High 70-100 [facility] Comment on above: Performed By: #### B NP3, BMP3, MG3 #### [facility] [address], [place] Urea nitrogen [Mass/Vol] 44 mg/dL High 7-20 [facility] Comment on above: Performed By: #### B NP3, BMP3, MG3 #### [facility] [address], [place] Anion gap [Moles/Vol] 3 mmol/L Normal 3-13 [facility] Comment on above: Performed By: #### B NP3, BMP3, MG3 #### [facility] [address], [place] CO2 [Moles/Vol] 32 mmol/L High 22-30 [facility] Comment on above: Performed By: #### B NP3, BMP3, MG3 #### [facility] [address] [place], [place] Creatinine [Mass/Vol] 2.13 mg/dL High 0.52-1.25 [facility] Comment on above: Performed By: #### B NP3, BMP3, MG3 #### [facility] [address], [place] GFR/1.73 sq M.predicted among blacks MDRD (S/P/Bld) [Vol rate/Area] 33.1 mL/min/{1.73_m2} Abnormal >60 [facility] Comment on above: Performed By: #### B NP3, BMP3, MG3 #### [place] [address] [place] [place], [place] GFR/1.73 sq M.predicted among non-blacks MDRD (S/P/Bld) [Vol rate/Area] 28.5 mL/min/{1.73_m2} Abnormal >60 [facility] Comment on above: Result Comment: KDIG O [...] By: #### B NP3, BMP3, MG3 #### [facility] [address], [place] Chloride [Moles/Vol] 101 mmol/L Normal 98-107 [facility] Comment on above: Performed By: #### B NP3, BMP3, MG3 #### [facility] [address] [place] [address] Potassium [Moles/Vol] 3.3 mmol/L Low 3.5-5.1 [facility] Comment on above: Performed By: #### B NP3, BMP3, MG3 #### [facility] [address] [place] [address] Sodium [Moles/Vol] 137 mmol/L Normal 135-145 [facility] Comment on above: Performed By: #### B NP3, BMP3, MG3 #### [facility] [address] [place] [address] Anion gap [Moles/Vol] 3 mmol/L 3 - 13 mmol/L [facility] Work Phone: Calcium [Mass/Vol] 8.4 mg/dL 8.4 - 10. 4 mg/dL [facility] Work Phone: Chloride [Moles/Vol] 101 mmol/L 98 - 10 7 mmol/L [facility] Work Phone: CO2 [Moles/Vol] 32 mmol/L High 22 - 30 mmol/L [facility] Work Phone: Creatinine [Mass/Vol] 2.13 mg/dL High 0.52 - 1.25 mg/dL [facility] Work Phone: EGFR IF NonAfrican Mexican 28.5 mL/min Abnormal >60 [facility] Work Phone: Comment on above: KDIGO guidelines [...] pg/mL [facility] Work Phone: Test Performed by [facility], [address] [place] [id number] [facility] Work Phone: CR Chest Portableon 10-08-19 21 CR Chest Portable [facility]: [id number]iology ACCESSION EXAM DATE/TIME PROCEDURE ORDERING PROVIDER [phone] 10/07/2020 07:31 EDT CR Chest Portable KASSANDRA DAVIDSON CPT code 93931 Reason For Exam (CR Chest Portable) Post [...] Transcribed Date and Time: 10/07/2020 10:49 Normal [facility] Magnesiumon 10-07-2020 Magnesium [Mass/Vol] 1.9 mg/dL Normal 1.6-2.3 [facility] Comment on above: Performed By: #### B NP3, BMP3, MG3 #### [address] [address] Magnesium [Mass/Vol] 1.9 mg/dL 1.6 - 2 .3 mg/dL [facility] Work Phone: NT pro BNPon 10-07-2020 Natriuretic peptide B (Bld) [Mass/Vol] 7758 pg/mL High 0-450 [facility] Comment on above: Performed By: #### C /TBC #### [address] [address] Otheron 10-07-2020 Test Performed by [facility], [address] [place] [id number] [facility] Work Phone: XR CHEST PORTABLEon 10-08-19 Patient Name: AMAURY DAVIS Diagnostic Radiology ACCESSION EXAM DATE/TIME PROCEDURE ORDERING PROVIDER [phone] 10/07/2020 07:31 EDT CR Chest Portable KASSANDRA DAVIDSON CPT code 05995 Reason For Exam (CR Chest Portable) Post [...] Phone: [facility], [facility] Incoming Rad[facility] Results From [facility] - 10/07/2020 10:53 AM EDT Patient Name: [id number] Diagnostic Radiology ACCESSION EXAM DATE/TIME PROCEDURE ORDERING PROVIDER [phone] 10/07/2020 07:31 EDT CR Chest Portable NICHOLEKASSANDRA Han CPT code 28582 Reason For Exam (CR Chest Portable) Post [...] L Transcribed Date and Time: 10/07/2020 10:49 [facility] Work Phone: Albuminon 10-06-2020 Albumin [Mass/Vol] 2.7 g/dL Low 3.5 - 5.0 g/dL [facility] Work Phone: Albumin, Serumon 10-06-2020 Albumin [Mass/Vol] 2.7 g/dL Low 3.5-5.0 [facility] Comment on above: Performed By: #### A DDON #### [facility] [address] [place] [address] Basic Metabolic Panelon Anion gap [Moles/Vol] 3 mmol/L Normal 3-13 [facility] Comment on above: Performed By: #### A DDON #### [facility] [address] [place] [address] Calcium [Mass/Vol] 8.4 mg/dL Normal 8.4-10.4 [facility] Comment on above: Performed By: #### A DDON #### [facility] [address] [place] [address] CO2 [Moles/Vol] 29 mmol/L Normal 22-30 [facility] Comment on above: Performed By: #### A DDON #### [facility] [address] [place] [address] Creatinine [Mass/Vol] 2.23 mg/dL High 0.52-1.25 [facility] Comment on above: Performed By: #### A DDON #### [facility] [address] [place] [address] GFR/1.73 sq M.predicted among blacks MDRD (S/P/Bld) [Vol rate/Area] 31.3 mL/min/{1.73_m2} Abnormal >60 [facility] Comment on above: Performed By: #### A DDON #### [facility] [address] [place] [address] GFR/1.73 sq M.predicted among non-blacks MDRD (S/P/Bld) [Vol rate/Area] 27.0 mL/min/{1.73_m2} Abnormal >60 [facility] Comment on above: Result Comment: KDIG O [...] secretion. Performed By: #### A DDON #### [place] [address] [address], [place] Glucose [Mass/Vol] 106 mg/dL High 70-100 [facility] Comment on above: Performed By: #### A DDON #### [address] [address] [place], [place] Urea nitrogen [Mass/Vol] 43 mg/dL High 7-20 [facility] Comment on above: Performed By: #### A DDON #### [address] [address] [address] [place], [place] Chloride [Moles/Vol] 106 mmol/L Normal 98-107 [facility] Comment on above: Performed By: #### A DDON #### [address] Potassium [Moles/Vol] 3.7 mmol/L Normal 3.5-5.1 [facility] Comment on above: Performed By: #### A DDON #### [address] [place], [place] Sodium [Moles/Vol] 137 mmol/L Normal 135-145 [facility] Comment on above: Performed By: #### A DDON #### [facility] [address] [address] Anion gap [Moles/Vol] 3 mmol/L 3 - 13 mmol/L [facility] Work Phone: Calcium [Mass/Vol] 8.4 mg/dL 8.4 - 10. 4 mg/dL [facility] Work Phone: Chloride [Moles/Vol] 106 mmol/L 98 - 10 7 mmol/L [facility] Work Phone: CO2 [Moles/Vol] 29 mmol/L 22 - 30 mmol/L [facility] Work Phone: Creatinine [Mass/Vol] 2.23 mg/dL High 0.52 - 1.25 mg/dL [facility] Work Phone: EGFR IF NonAfrican Mexican 27.0 mL/min Abnormal >60 [facility] Work Phone: Comment [...] [Moles/Vol] 137 mmol/L 135 - 145 mmol/L [facility] Work Phone: Urea nitrogen (BldV) [Mass/Vol] 43 mg/dL High 7 - 20 mg/dL [facility] Work Phone: CR Chest Portableon 10-07-19 21 CR Chest Portable [facility]: [id number]iology ACCESSION EXAM DATE/TIME PROCEDURE ORDERING PROVIDER [id number] 10/06/2020 07:09 EDT CR Chest Portable KASSANDRA DAVIDSON CPT code 61906 Reason For Exam (CR Chest Portable) Post [...] Transcribed Date and Time: 10/06/2020 8:14 Normal [facility] CREATININE, RANDOM URINEon 0 10-06-2020 Creatinine (U) [Mass/Vol] 17.4 mg/dL No Range [facility] Work Phone: Creatinine, Ur Randomon 04-0 Creatinine, Ur Random 17.4 mg/dL Normal No Range [facility] Comment on above: Performed By: #### B MP3, HEMDF #### [facility] [address] [address] EKG 12 Leadon 10-06-2020 Jax, [facility] Incoming Cardiology Results From Merge/Denisseany - 10/06/2020 9:06 AM EDT [facility] Test Date: 2020-10-05 Pat Name: Amaury Blank Department: [facility] Room: [facility] Gender: M Forensic Science Examiner: GERRY : 1940 Requested By: MACRINA ALCAZAR Order Number: [id number] Reading MD: Heather Saab Measurements Intervals [place] Rate: 71 P: 55 WV: 159 QRS: -18 QRSD: 118 T: 32 QT: 455 QTc: 495 Interpretive Statements Sinus rhythm Inferior infarct, old Anteroseptal infarct, age indeterminate Electronically Signed On 10-06-2020 9:05:50 EDT by Heather Saab [facility] Work Phone: [facility] Test Date: 2020-10-05 Pat Name: Amaury Blank Department: 1A6 Room: [facility] Gender: M Forensic Science Examiner: GERRY : 1940 Requested By: MACRINA ALCAZAR Order Number: [id number] Reading MD: Heather Saab Measurements Intervals [place] Rate: 71 P: 55 WV: 159 QRS: -18 QRSD: 118 T: 32 QT: 455 QTc: 495 Interpretive Statements Sinus rhythm Inferior infarct, old Anteroseptal infarct, age indeterminate Electronically Signed On 10-06-2020 9:05:50 EDT by Heather Saab [facility] Work Phone: EOSINOPHILS, URINEon 021 Bacteria, UA see comment [facility] Work Phone: Comment on above: yeast observed Eosinophil, Urine NO EOSINS SEEN [facility] Work Phone: Test Performed by [facility], [address] [place] [address] [facility] Work Phone: Eosinophils,Uron 10-06-2020 Bacteria identified Cx Nom (Unsp spec) see comment Normal [facility] Comment on above: Result Comment: farhan mcqueen observed Performed By: #### B MP3, HEMDF #### [facility] [address] [place] [address] Eosinophils Urine NO EOSINS SEEN Normal [facility] Comment on above: Performed By: #### B MP3, HEMDF #### [facility] [address] [place] [address] Magnesiumon 10-06-2020 Magnesium [Mass/Vol] 1.3 mg/dL Low 1.6-2.3 [facility] Comment on above: Performed By: #### A DDON #### [address] [address] [place] [address] Magnesium [Mass/Vol] 1.3 mg/dL Low 1.6 - 2 .3 mg/dL [facility] Work Phone: Otheron 10-06-2020 Test Performed by [facility], [facility] [place] [address] [facility] Work Phone: Interpretation and review of laboratory results Abnormal [facility] Work Phone: Test Performed by [facility], [facility] [place] [address] [facility] Work Phone: Phosphoruson 10-06-2020 Phosphate [Mass/Vol] 4.0 mg/dL Normal 2.5-4.5 [facility] Comment on above: Performed By: #### A DDON #### [address] [address] [place] [address] Phosphate [Mass/Vol] 4.0 mg/dL 2.5 - 4 .5 mg/dL [facility] Work Phone: Sodium, Ur Randomon 10-07-19 21 Sodium [Moles/Vol] 139 mmol/L High 30-90 [facility] Comment on above: Performed By: #### B MP3, HEMDF #### [facility] [address] [place] [address] Sodium, Urine, Randomon 04-0 Interpretation and review of laboratory results Abnormal [facility] Work Phone: Sodium (U) [Moles/Vol] 139 mmol/L High 30 - 90 mmol/L [facility] Work Phone: XR CHEST PORTABLEon 10-07-19 Jax, [facility] Incoming Radiology Results From [facility] - 10/06/2020 8:17 AM EDT Patient Name: AMAURY BLANK Diagnostic Radiology ACCESSION EXAM DATE/TIME PROCEDURE ORDERING PROVIDER [id number] 10/06/2020 07:09 EDT CR Chest Portable AZIKEN, KASSANDRA CPT code 34476 Reason For Exam (CR Chest Portable) Post [...] R Transcribed Date and Time: 10/06/2020 8:14 [facility] Work Phone: Patient Name: AMAURY DAVIS Diagnostic Radiology ACCESSION EXAM DATE/TIME PROCEDURE ORDERING PROVIDER [id number] 10/06/2020 07:09 EDT CR Chest Portable AZIKEN, KASSANDRA CPT code 38448 Reason For Exam (CR Chest Portable) Post [...] R Transcribed Date and Time: 10/06/2020 8:14 [facility] Work Phone: Basic Metabolic Panelon 04-0 Anion gap [Moles/Vol] 5 mmol/L Normal 3-13 [facility] Comment on above: Performed By: #### A DDON #### [facility] [address] [place] [address] Calcium [Mass/Vol] 8.4 mg/dL Normal 8.4-10.4 [facility] Comment on above: Performed By: #### A DDON #### [facility] [address] [place] [address] CO2 [Moles/Vol] 25 mmol/L Normal 22-30 [facility] Comment on above: Performed By: #### A DDON #### [facility] [address] [place] [address] Creatinine [Mass/Vol] 2.42 mg/dL High 0.52-1.25 [facility] Comment on above: Performed By: #### A DDON #### [facility] [address] [place] [address] GFR/1.73 sq M.predicted among blacks MDRD (S/P/Bld) [Vol rate/Area] 28.3 mL/min/{1.73_m2} Abnormal >60 [facility] Comment on above: Performed By: #### A DDON #### [address] [address] GFR/1.73 sq M.predicted among non-blacks MDRD (S/P/Bld) [Vol rate/Area] 24.4 mL/min/{1.73_m2} Abnormal >60 [facility] Comment on above: Result Comment: KDIG O [...] secretion. Performed By: #### A DDON #### [address] [address] [place], [place] Glucose [Mass/Vol] 111 mg/dL High 70-100 [facility] Comment on above: Performed By: #### A DDON #### [address] [place] [address] Urea nitrogen [Mass/Vol] 43 mg/dL High 7-20 [facility] Comment on above: Performed By: #### A DDON #### [address] [address] [place] [address] Chloride [Moles/Vol] 112 mmol/L High 98-107 [facility] Comment on above: Performed By: #### A DDON #### [address] [address] [place], [place] Potassium [Moles/Vol] 4.1 mmol/L Normal 3.5-5.1 [facility] Comment on above: Performed By: #### A DDON #### [facility] [address] [place] [address] Sodium [Moles/Vol] 142 mmol/L Normal 135-145 [facility] Comment on above: Performed By: #### A DDON #### [facility] [address] [place] [address] Anion gap [Moles/Vol] 5 mmol/L 3 - 13 mmol/L [facility] Work Phone: Calcium [Mass/Vol] 8.4 mg/dL 8.4 - 10. 4 mg/dL [facility] Work Phone: Chloride [Moles/Vol] 112 mmol/L High 98 - 10 7 mmol/L [facility] Work Phone: CO2 [Moles/Vol] 25 mmol/L 22 - 30 mmol/L [facility] Work Phone: Creatinine [Mass/Vol] 2.42 mg/dL High 0.52 - 1.25 mg/dL [facility] Work Phone: EGFR IF NonAfrican Mexican 24.4 mL/min Abnormal >60 [facility] Work Phone: Comment on above: KDIGO guidelines [...] (S/P/Bld) [Vol rate/Area] 28.3 mL/min/{1.73_m2} Abnormal >60 [facility] Work Phone: Glucose [Mass/Vol] 111 mg/dL High 70 - 100 mg/dL [facility] Work Phone: Potassium [Moles/Vol] 4.1 mmol/L 3.5 - 5.1 mmol/L [facility] Work Phone: Sodium [Moles/Vol] 142 mmol/L 135 - 145 mmol/L [facility] Work Phone: Urea nitrogen (BldV) [Mass/Vol] 43 mg/dL High 7 - 20 mg/dL [facility] Work Phone: CR Chest Portableon 10-06-19 CR Chest Portable Patient Name: AMAURY DAVIS Diagnostic Radiology ACCESSION EXAM DATE/TIME PROCEDURE ORDERING PROVIDER [id number] 10/05/2020 07:06 EDT CR Chest Portable KASSANDRA DAVIDSON CPT code 94038 Reason For Exam (CR Chest Portable) Post [...] Dictated: 10/05/2020 8:03 am Dictating Physician: MD CAMILA, AURELIA Mckeon Date and Time: 10/05/2020 8:06 am Signed by: MD CAMILA, AURELIA J Transcribed Date and Time: 10/05/2020 8:03 Normal [facility] Diagnostic Cardiac Manufacturing Sr Engineer Procedureon 10-05-2020 Heather Saab MD 1:46 PM [...] was introduced into the esophagus by the identification technician Dr. Beasley under my direct supervision, smoothly. [...] TTE report to follow for further details. [facility] Work Phone: Echo 2D/3D ROSI w/wo Contrast on 10-05-2020 Echo 2D/3D ROIS w/wo Contrast Patient Name: AMAURY BLANK Ultrasound ACCESSION EXAM DATE/TIME PROCEDURE ORDERING PROVIDER [id number] 10/05/2020 14:06 EDT Echo 2D/3D ROSI w/wo [id number] -Precious GONZALEZHAMMAD Reason For Exam (Echo 2D/3D ROSI w/wo Contrast) atrial flutter Report TRANSESOPHAGEAL ECHOCARDIOGRAM PATIENT: Amaury Blank STUDY DATE: 10/05/2020 R [facility]#: [id number] : 1940 AGE: 80 HT/WT: 180.3 cm (71 81.4 kg (179 in) lb) GENDER: M BP: 129 / 67 LOCATION: [facility] PATIENT Inpatient main STATUS: *ORDERING PHYSICIAN: * Carlos, *FELLOW: Macrina Dan *RN: Isabella Jc *READING PHYSICIAN: * Heather Saab *RETAINING ROOM CUTTER: Yen Patel [facility] INDICATIONS: Atrial flutter. CONCLUSIONS SUMMARY: [...] A transesophageal probe was inserted by the identification technician under direct supervision of the attending cardiologistwith [...] pm Signed by: MD SAAB WISSAM Normal [facility] Echocardiogram transesophage rick 10-05-2020 Jax, [facility] Incoming Cardiology Results From Avril/Tomy - 10/05/2020 5:47 PM EDT TRANSESOPHAGEAL ECHOCARDIOGRAM PATIENT: Amaury Blank STUDY DATE: 10/05/2020 R : 1940 AGE: 80 HT/WT: 180.3 cm (71 81.4 kg (179 in) lb) GENDER: M BP: 129 / 67 LOCATION: [facility] PATIENT Inpatient main STATUS: *ORDERING PHYSICIAN: * Carlos, *FELLOW: * Macrina Alcazar *RN: Isabella Jc *READING PHYSICIAN: Heather Mejia *RETAINING ROOM CUTTER: * Erum Patel RDCS INDICATIONS: Atrial flutter. CONCLUSIONS SUMMARY: 1. Left [...] A transesophageal probe was inserted by the identification technician under direct supervision of the attending cardiologistwith [...] by Heather Saab 10/05/2020 17:47 Prior Signatures: [facility] Work Phone: TRANSESOPHAGEAL ECHOCARDIOGRAM PATIENT: Amaury Blank STUDY DATE: 10/05/2020 R : 1940 AGE: 80 HT/WT: 180.3 cm (71 81.4 kg (179 in) lb) GENDER: M BP: 129 / 67 LOCATION: [facility] PATIENT Inpatient main STATUS: *ORDERING PHYSICIAN: * Carlos, *FELLOW: * Macrina Alcazar *RN: * Isabella Zazueta *READING PHYSICIAN: * Heather Saab *RETAINING ROOM CUTTER: * Erum Patel [facility] INDICATIONS: Atrial flutter. CONCLUSIONS SUMMARY: [...] A transesophageal probe was inserted by the identification technician under direct supervision of the attending cardiologistwith [...] by Heather Saab 10/05/2020 17:47 Prior Signatures: [facility] Work Phone: Magnesiumon 10-05-2020 Magnesium [Mass/Vol] 1.3 mg/dL Low 1.6-2.3 [facility] [employer] Comment on above: Performed By: #### A DDON #### [facility] [employer] [address] [place] [address] Magnesium [Mass/Vol] 1.3 mg/dL Low 1.6 - 2 .3 mg/dL [facility] Work Phone: Otheron 10-05-2020 Interpretation and review of laboratory results Abnormal [facility] Work Phone: Test Performed by [facility], [address] [place] [address] [facility] Work Phone: XR CHEST PORTABLEon 10-06-19 Jax, [facility] Incoming Radiology Results From [facility] - 10/05/2020 8:07 AM EDT Patient Name: AMAURY BLANK Diagnostic Radiology ACCESSION EXAM DATE/TIME PROCEDURE ORDERING PROVIDER [id number] 10/05/2020 07:06 EDT CR Chest Portable KASSANDRA DAVIDSON CPT code 54256 Reason For Exam (CR Chest Portable) Post [...] [facility] Work Phone: Patient Name: AMAURY DAVIS [facility]#: [id number] Diagnostic Radiology ACCESSION EXAM DATE/TIME PROCEDURE ORDERING PROVIDER [id number] 10/05/2020 07:06 EDT CR Chest Portable KASSANDRA DAVIDSON CPT code 98353 Reason For Exam (CR Chest Portable) Post [...] Time: 10/05/2020 8:06 am Signed by: MD CAMILA AURELIA Diaz Transcribed Date and Time: 10/05/2020 8:03 [facility] Work Phone: Basic Metabolic Panelon 04-0 Anion gap [Moles/Vol] 2 mmol/L Low 3-13 [facility] Comment on above: Performed By: #### B NP3, BMP3, MG3 #### [address] [place], [place] Calcium [Mass/Vol] 8.4 mg/dL Normal 8.4-10.4 [facility] Comment on above: Performed By: #### B NP3, BMP3, MG3 #### [address] [address] [place], [place] CO2 [Moles/Vol] 25 mmol/L Normal 22-30 [facility] Comment on above: Performed By: #### B NP3, BMP3, MG3 #### [address] [place], [place] Glucose [Mass/Vol] 109 mg/dL High 70-100 [facility] Comment on above: Performed By: #### B NP3, BMP3, MG3 #### [address] [address] [place], [place] Urea nitrogen [Mass/Vol] 40 mg/dL High 7-20 [facility] Comment on above: Performed By: #### B NP3, BMP3, MG3 #### [address] [place], [place] Creatinine [Mass/Vol] 2.14 mg/dL High 0.52-1.25 [facility] Comment on above: Performed By: #### B NP3, BMP3, MG3 #### [address] [place], [place] GFR/1.73 sq M.predicted among blacks MDRD (S/P/Bld) [Vol rate/Area] 32.9 mL/min/{1.73_m2} Abnormal >60 [facility] Comment on above: Performed By: #### B NP3, BMP3, MG3 #### [address] [place] [address] GFR/1.73 sq M.predicted among non-blacks MDRD (S/P/Bld) [Vol rate/Area] 28.4 mL/min/{1.73_m2} Abnormal >60 [facility] Comment on above: Result Comment: KDIG O [...] By: #### B NP3, BMP3, MG3 #### [address] [place], [place] Potassium [Moles/Vol] 4.3 mmol/L Normal 3.5-5.1 [facility] Comment on above: Performed By: #### B NP3, BMP3, MG3 #### [address] [address] [place], [place] Sodium [Moles/Vol] 142 mmol/L Normal 135-145 [facility] Comment on above: Performed By: #### B NP3, BMP3, MG3 #### [facility] [address] [place] [address] Chloride [Moles/Vol] 115 mmol/L High 98-107 [facility] Comment on above: Performed By: #### B NP3, BMP3, MG3 #### [facility] [address] [place] [address] Anion gap [Moles/Vol] 2 mmol/L Low 3 - 13 mmol/L [facility] Work Phone: Calcium [Mass/Vol] 8.4 mg/dL 8.4 - 10. 4 mg/dL [facility] Work Phone: Chloride [Moles/Vol] 115 mmol/L High 98 - 10 7 mmol/L [facility] Work Phone: [phone] CO2 [Moles/Vol] 25 mmol/L 22 - 30 mmol/L [facility] Work Phone: Creatinine [Mass/Vol] 2.14 mg/dL High 0.52 - 1.25 mg/dL [facility] Work Phone: EGFR IF NonAfrican Mexican 28.4 mL/min Abnormal >60 [facility] Work Phone: [...] [facility] Work Phone: Urea nitrogen (BldV) [Mass/Vol] 40 mg/dL High 7 - 20 mg/dL [facility] Work Phone: Brain Natriuretic Peptideon 10-04-2020 Interpretation and review of laboratory results Abnormal [facility] Work Phone: Natriuretic peptide B (Bld) [Mass/Vol] 09872 pg/mL High 0 - 450 pg/mL [facility] Work Phone: Test Performed by [facility], [address] [place] [address] [facility] Work Phone: CR Chest Portableon 10-05-19 21 CR Chest Portable Patient Name: AMAURY DAVIS Diagnostic Radiology ACCESSION EXAM DATE/TIME PROCEDURE ORDERING PROVIDER [id number] 10/04/2020 06:50 EDT CR Chest Portable CORTES KASSANDRA CPT code 02356 Reason For Exam (CR Chest Portable) Post [...] Transcribed Date and Time: 10/04/2020 8:44 Normal [facility] Magnesiumon 10-04-2020 Magnesium [Mass/Vol] 1.4 mg/dL Low 1.6-2.3 [facility] Comment on above: Performed By: #### B NP3, BMP3, MG3 #### [facility] [employer] [address] [place] [address] Magnesium [Mass/Vol] 1.4 mg/dL Low 1.6 - 2 .3 mg/dL [facility] Work Phone: NT pro BNPon 10-04-2020 Natriuretic peptide B (Bld) [Mass/Vol] 97854 pg/mL High 0-450 [facility] Comment on above: Performed By: #### B NP3, BMP3, MG3 #### [facility] [employer] [address] [place] [address] Otheron 10-04-2020 Interpretation and review of laboratory results Abnormal [facility] Work Phone: Test Performed by [facility], [address] [place] [address] [facility] Work Phone: XR CHEST PORTABLEon 10-05-19 Jax, [facility] Incoming Radiology Results From [facility] - 10/04/2020 8:47 AM EDT Patient [facility]: [id number] Diagnostic Radiology ACCESSION EXAM DATE/TIME PROCEDURE ORDERING PROVIDER [id number] 10/04/2020 06:50 EDT CR Chest Portable KASSANDRA DAVIDSON CPT code 84277 Reason For Exam (CR Chest Portable) Post [...] HARLAN Transcribed Date and Time: 10/04/2020 8:44 [facility] Work Phone: Patient Name: AMAURY DAVIS [facility]#: [id number] Diagnostic Radiology ACCESSION EXAM DATE/TIME PROCEDURE ORDERING PROVIDER [id number] 10/04/2020 06:50 EDT CR Chest Portable KASSANDRA DAVIDSON CPT code 33477 Reason For Exam (CR Chest Portable) Post [...] HARLAN Transcribed Date and Time: 10/04/2020 8:44 [facility] Work Phone: Albuminon 10-03-2020 Albumin [Mass/Vol] 2.9 g/dL Low 3.5 - 5.0 g/dL [facility] Work Phone: Albumin, Serumon 10-03-2020 Albumin [Mass/Vol] 2.9 g/dL Low 3.5-5.0 [facility] [employer] Comment on above: Performed By: #### B NP3, BMP3, MG3 #### [facility] [address] [place] [address] [place] [address] Basic Metabolic Panelon 04-0 Calcium [Mass/Vol] 8.8 mg/dL Normal 8.4-10.4 [facility] Comment on above: Performed By: #### C /TBC #### [facility] [address] [place] [address] Anion gap [Moles/Vol] 6 mmol/L Normal 3-13 [facility] Comment on above: Performed By: #### C /TBC #### [address] [place], [place] CO2 [Moles/Vol] 21 mmol/L Low 22-30 [facility] Comment on above: Performed By: #### C /TBC #### [address] [place], [place] Creatinine [Mass/Vol] 1.89 mg/dL High 0.52-1.25 [facility] Comment on above: Performed By: #### C /TBC #### [address] [place], [place] GFR/1.73 sq M.predicted among blacks MDRD (S/P/Bld) [Vol rate/Area] 38.2 mL/min/{1.73_m2} Abnormal >60 [facility] Comment on above: Performed By: #### C /TBC #### [address] [place], [place] GFR/1.73 sq M.predicted among non-blacks MDRD (S/P/Bld) [Vol rate/Area] 33.0 mL/min/{1.73_m2} Abnormal >60 [facility] Comment on above: Result Comment: KDIG O [...] secretion. Performed By: #### C /TBC #### [facility] [address] [place] [address] Glucose [Mass/Vol] 106 mg/dL High 70-100 [facility] Comment on above: Performed By: #### C /TBC #### [address] [place] [address] Urea nitrogen [Mass/Vol] 37 mg/dL High 7-20 [facility] Comment on above: Performed By: #### C /TBC #### [address] [place] [address] Potassium [Moles/Vol] 4.4 mmol/L Normal 3.5-5.1 [facility] Comment on above: Performed By: #### C /TBC #### [address] [place] [address] Chloride [Moles/Vol] 115 mmol/L High 98-107 [facility] Comment on above: Performed By: #### C /TBC #### [address] [place] [address] Sodium [Moles/Vol] 141 mmol/L Normal 135-145 [facility] Comment on above: Performed By: #### C /TBC #### [address] [place] [address] Anion gap [Moles/Vol] 6 mmol/L 3 - 13 mmol/L [facility] Work Phone: Calcium [Mass/Vol] 8.8 mg/dL 8.4 - 10. 4 mg/dL [facility] Work Phone: Chloride [Moles/Vol] 115 mmol/L High 98 - 10 7 mmol/L [facility] Work Phone: CO2 [Moles/Vol] 21 mmol/L Low 22 - 30 mmol/L [facility] Work Phone: Creatinine [Mass/Vol] 1.89 mg/dL High 0.52 - 1.25 mg/dL [facility] Work Phone: EGFR IF NonAfrican Mexican 33.0 mL/min Abnormal >60 [facility] Work Phone: [...] [facility] Work Phone: CR Chest Portableon 10-04-19 21 CR Chest Portable Patient Name: AMARUY DAVIS Diagnostic Radiology ACCESSION EXAM DATE/TIME PROCEDURE ORDERING PROVIDER [id number] 10/03/2020 01:59 EDT CR Chest Portable RUSSELL HICKEY CPT code 30810 Reason For Exam (CR Chest Portable) Right [...] Transcribed Date and Time: 10/03/2020 2:24 Normal [facility] CT CHEST WO CONTRASTon 10-03 Patient Name: AMAURY DAVIS Computed Tomography ACCESSION EXAM DATE/TIME PROCEDURE ORDERING PROVIDER [id number] 10/03/2020 11:[address] Thorax w/o Contrast KASSANDRA DAVIDSON CPT code 65269 Reason For Exam (CT Thorax w/o Contrast) [...] Phone: Jax, [facility] Incoming Radiology Results From [facility] - 10/03/2020 2:46 PM EDT Patient Name: AMAURY BLANK Computed Tomography ACCESSION EXAM DATE/TIME PROCEDURE ORDERING PROVIDER [id number] 10/03/2020 11:[address] Thorax w/o Contrast KASSANDRA DAVIDSON CPT code 62634 Reason For Exam (CT Thorax w/o Contrast) [...] [facility] Work Phone: CT Chest w/o Contraston 04-0 CT Chest w/o Contrast Patient Name: AMAURY JAEGER Computed Tomography ACCESSION EXAM DATE/TIME PROCEDURE ORDERING PROVIDER [id number] 10/03/2020 11:[address] Thorax w/o Contrast CORTES KASSANDRA CPT code 41957 Reason For Exam (CT Thorax w/o Contrast) [...] Transcribed Date and Time: 10/03/2020 2:36 Normal [facility] CT GUIDED PLEURAL DRAINAGE W CATH PERCon 10-03-2020 Patient [facility]: [id number] Computed Tomography ACCESSION EXAM DATE/TIME PROCEDURE ORDERING PROVIDER [id number] 10/03/2020 15:[address] Insert Cath Pleura w/ PAOLA, EVARISTOJUS. Image CPT code 71755 Reason For Exam (CT Insert Cath Pleura [...] one percent lidocaine. Following this, a 10 Ghanaian small caliber chest tube was advanced into [...] Time: 10/03/2020 3:49 [facility] Work Phone: Jax, Leticia Incoming Radiology Results From [facility] - 10/03/2020 3:58 PM EDT [facility]: [id number] Comput[facility] Tomography ACCESSION EXAM DATE/TIME PROCEDURE ORDERING PROVIDER [id number] 10/03/2020 15:[address] Insert Cath Pleura w/ PAOLA, EVARISTO JUS CarballoMarielena Image CPT code 63681 Reason For Exam (CT Insert Cath Pleura [...] one percent lidocaine. Following this, a 10 Ghanaian small caliber chest tube was advanced into [...] Pleura w/ Image Patient Name: AMAURY BLANK Computed Tomography ACCESSION EXAM DATE/TIME PROCEDURE ORDERING PROVIDER [id number] 10/03/2020 15:[address] Insert Cath Pleura w/ PAOLA, ACNP, JUS Carballo. Image CPT code 15553 Reason For Exam (CT Insert Cath Pleura [...] one percent lidocaine. Following this, a 10 Ghanaian small caliber chest tube was advanced into [...] Time: 10/03/2020 3:57 pm Signed by: MD PA, AMINA PRADHAN Transcribed Date and Time: 10/03/2020 3:49 Normal [facility] Folateon 10-03-2020 Folate 12.0 ng/mL Normal 2.8-20.0 [facility] Comment on above: Performed By: #### B NP3, BMP3, MG3 #### [address] [address] Folate 12 ng/mL 2.8 - 20.0 ng/mL [facility] Work Phone: Iron AND TIBCon 10-03-2020 Saturation 35 % Normal 15-50 [facility] Comment on above: Performed By: #### B NP3, BMP3, MG3 #### [address] [address] Total Iron Binding Cap. 115 ug/dL Low 261-497 [facility] Comment on above: Performed By: #### B NP3, BMP3, MG3 #### [address] [address] Iron, Total 40 ug/dL Low 49-181 [facility] Comment on above: Performed By: #### B NP3, BMP3, MG3 #### [address] [address] Iron and TIBCon 10-03-2020 Interpretation and review of laboratory results Abnormal [facility] Work Phone: Iron [Mass/Vol] 40 ug/dL Low 49 - 181 ug/dL [facility] Work Phone: Sat 35 % 15 - 50 % [facility] Work Phone: TIBC 115 ug/dL Low 261 - 497 ug/dL [facility] Work Phone: Test Performed by [facility], [facility] [place] [address] [facility] Work Phone: Lipid Panelon 10-03-2020 Chol/HDL 2 Normal [facility] Comment on above: Result Comment: Ref Range: < 3 Low Risk for CHD 3-6 Mod Risk for CHD > 6 High Risk for CHD Performed By: #### B NP3, BMP3, MG3 #### [employer] [facility] [address] [place] [address] Cholesterol in HDL [Mass/Vol] 49 mg/dL Normal 40-60 [facility] Comment on above: Performed By: #### B NP3, BMP3, MG3 #### [facility] [address] [place] [address] Low Density Lipoprotein 28 mg/dL Normal <100 [facility] Comment on above: Performed By: #### B NP3, BMP3, MG3 #### [employer] [facility] [address] [place] [address] Cholesterol [Mass/Vol] 93 mg/dL Normal < 200 [facility] Comment on above: Performed By: #### B NP3, BMP3, MG3 #### [employer] [facility] [address] [place] [address] Triglyceride [Mass/Vol] 79 mg/dL Normal <150 [facility] Comment on above: Performed By: #### B NP3, BMP3, MG3 #### [employer] [facility] [address] [place] [address] Lipid panel - fastingon Cholesterol [Mass/Vol] 93 mg/dL <200 [facility] Work Phone: Cholesterol in HDL [Mass/Vol] 49 mg/dL 40 - 60 mg/dL [facility] Work Phone: Cholesterol in LDL [Mass/Vol] 28 mg/dL <100 [facility] Work Phone: Cholesterol.total/Maria E sterol in HDL [Mass ratio] 2 {ratio} [facility] Work Phone: Comment on above: Ref Range: < 3 Low Risk for CHD 3-6 Mod Risk for CHD > 6 High Risk for CHD Triglyceride [Mass/Vol] 79 mg/dL <150 [facility] Work Phone: Magnesiumon 10-03-2020 Magnesium [Mass/Vol] 1.6 mg/dL Normal 1.6-2.3 [facility] Comment on above: Performed By: #### C /TBC #### [facility] [employer] [address] [place] [address] Magnesium [Mass/Vol] 1.6 mg/dL 1.6 - 2 .3 mg/dL [facility] Work Phone: Otheron 10-03-2020 Test Performed by [facility], [address] [place] [address] [facility] Work Phone: Interpretation and review of laboratory results Abnormal [facility] Work Phone: Test Performed by [facility], [address] [place] [id number] [place], [place] [address]A Work Phone: TSH without Reflexon 021 TSH Qn 2.826 u[IU]/mL 0.465 - 4.680 u[IU]/mL [facility] Work Phone: Test Performed by [facility], [address] [place] [id number] [place], [place] [address]A Work Phone: Thyroid Stim. Hormoneon 04-0 Thyroid Stim. Hormone 2.826 u[IU]/mL Normal 0.46 5-4.68 0 [facility] Comment on above: Performed By: #### B NP3, BMP3, MG3 #### [employer] [address] [place] [address] Troponinon 10-03-2020 Troponin I.cardiac [Mass/Vol] 0.026 ng/mL 0.000 - 0.034 ng/mL [facility] Work Phone: Comment on above: . Test Performed by [facility], [address] [place] [address] [facility] Work Phone: Troponin Ion 10-03-2020 Troponin I.cardiac [Mass/Vol] 0.026 ng/mL Normal 0.000-0.03 4 [facility] Comment on above: Result Comment: . Performed By: #### B MP3, HEMDF #### [employer] [facility] [place] [address] Vitamin B12on 10-03-2020 Cobalamin (Vitamin B12) [Mass/Vol] 737 pg/mL Normal 239-931 [facility] Comment on above: Performed By: #### B NP3, BMP3, MG3 #### [facility] [employer] [facility] [address] [place] [address] Cobalamin (Vitamin B12) [Mass/Vol] 737 pg/mL 239 - 931 pg/mL [facility] Work Phone: XR CHEST PORTABLEon 10-04-19 Patient Name: AMAURY DAVIS Diagnostic Radiology ACCESSION EXAM DATE/TIME PROCEDURE ORDERING PROVIDER [id number] 10/03/2020 01:59 EDT CR Chest Portable RUSSELL HICKEY CPT code 06001 Reason For Exam (CR Chest Portable) Right [...] WILLIAM Transcribed Date and Time: 10/03/2020 2:24 [facility] Work Phone: Jax, [facility] Incoming Radiology Results From [facility] - 10/03/2020 2:31 AM EDT Patient Name: AMAURY BLANK Diagnostic Radiology ACCESSION EXAM DATE/TIME PROCEDURE ORDERING PROVIDER [id number] 10/03/2020 01:59 EDT CR Chest Portable RUSSELL HICKEY CPT code 88184 Reason For Exam (CR Chest Portable) Right [...] WILLIAM Transcribed Date and Time: 10/03/2020 2:24 [facility] Work Phone: CULT/STAIN - AEROBIC AND RACHEL EROBICon 09-24-2020 CULT/STAIN - AEROBIC AND ANAEROBIC STAIN GRAM --> Status: F Rare polymorphonuclear cells/lpf. No organisms seen. No organisms seen. CULT./ST. BACTERIA --> Status: F No growth at 3 days. CULTURE ANAEROBE --> Status: F No growth of anaerobes at 5 days. Normal [facility] Comment on above: Performed By: #### C /TBC #### [address] Basic Metabolic Panelon 08-29 Anion gap [Moles/Vol] 3 mmol/L Normal 3-13 [facility] Comment on above: Performed By: #### B MP3, HEMDF #### [address] Calcium [Mass/Vol] 8.6 mg/dL Normal 8.4-10.4 [facility] Comment on above: Performed By: #### B MP3, HEMDF #### [address] CO2 [Moles/Vol] 21 mmol/L Low 22-30 [facility] Comment on above: Performed By: #### B MP3, HEMDF #### [address] [place] Glucose [Mass/Vol] 96 mg/dL Normal 70-100 [facility] Comment on above: Performed By: #### B MP3, HEMDF #### [facility] [address] [place], [place] Urea nitrogen [Mass/Vol] 38 mg/dL High 7-20 [facility] Comment on above: Performed By: #### B MP3, HEMDF #### [address] [address] [place], [place] Creatinine [Mass/Vol] 1.85 mg/dL High 0.52-1.25 [facility] Comment on above: Performed By: #### B MP3, HEMDF #### [address] [address] GFR/1.73 sq M.predicted among blacks MDRD (S/P/Bld) [Vol rate/Area] 39.2 mL/min/{1.73_m2} Abnormal >60 [facility] Comment on above: Performed By: #### B MP3, HEMDF #### [address] [address] [place] [address] GFR/1.73 sq M.predicted among non-blacks MDRD (S/P/Bld) [Vol rate/Area] 33.8 mL/min/{1.73_m2} Abnormal >60 [facility] Comment on above: Result Comment: KDIG O [...] Performed By: #### B MP3, HEMDF #### [facility] [address] [place] [address] Potassium [Moles/Vol] 5.3 mmol/L High 3.5-5.1 [facility] Comment on above: Performed By: #### B MP3, HEMDF #### [facility] [address] [place] [address] Sodium [Moles/Vol] 129 mmol/L Low 135-145 [facility] Comment on above: Performed By: #### B MP3, HEMDF #### [facility] [address] [place] [address] Chloride [Moles/Vol] 105 mmol/L Normal 98-107 [facility] Comment on above: Performed By: #### B MP3, HEMDF #### [facility] [address] [place] [address] Anion gap [Moles/Vol] 3 mmol/L 3 - 13 mmol/L [facility] Work Phone: Calcium [Mass/Vol] 8.6 mg/dL 8.4 - 10. 4 mg/dL [facility] Work Phone: Chloride [Moles/Vol] 105 mmol/L 98 - 10 7 mmol/L [facility] Work Phone: CO2 [Moles/Vol] 21 mmol/L Low 22 - 30 mmol/L [facility] Work Phone: Creatinine [Mass/Vol] 1.85 mg/dL High 0.52 - 1.25 mg/dL [facility] Work Phone: EGFR IF NonAfrican Mexican 33.8 mL/min Abnormal >60 [facility] Work Phone: Comment on above: KDIGO guidelines [...] 39.2 mL/min/{1.73_m2} Abnormal >60 [facility] Work Phone: [phone] Glucose [Mass/Vol] 96 mg/dL 70 - 100 mg/dL [facility] Work Phone: [phone] Interpretation and review of laboratory results Abnormal [facility] Work Phone: [phone] Potassium [Moles/Vol] 5.3 mmol/L High 3.5 - 5.1 mmol/L [facility] Work Phone: [phone] Sodium [Moles/Vol] 129 mmol/L Low 135 - 145 mmol/L [facility] Work Phone: [phone] Urea nitrogen [Mass/Vol] 38 mg/dL High 7 - 20 mg/dL [facility] Work Phone: [phone] Test Performed by [facility], [address] [place] [address] [facility] Work Phone: [phone] CBC Auto Differentialon 08-29 Absolute Baso # 0.0 10*3/uL 0.0 - 0.2 10*3/uL [facility] Work Phone: [phone] Absolute Neut # 9.4 10*3/uL High 1.8 - 7.0 10*3/uL [facility] Work Phone: [phone] Basophils/100 WBC (Bld) 0.2 % 0.0 - 2.0 % [facility] Work Phone: [phone] Eosinophils (Bld) [#/Vol] 0.0 10*3/uL 0.0 - 0.5 10*3/uL [facility] Work Phone: [phone] Eosinophils/100 WBC (Bld) 0.1 % Low 1.0 - 6.0 % [facility] Work Phone: [phone] Erythrocyte distribution width (RBC) [Ratio] 15.5 % High 11.5 - 14.5 % [facility] Work Phone: [phone] Granulocytes/100 WBC (Bld) 87.9 % High 40.0 - 80.0 % [facility] Work Phone: [phone] Hematocrit (Bld) [Volume fraction] 26.5 % Low 40.0 - 52.0 % [facility] Work Phone: [phone] Hemoglobin (Bld) [Mass/Vol] 8.7 g/dL Low 13.0 - 18.0 g/dL [facility] Work Phone: [phone] Interpretation and review of laboratory results Abnormal [facility] Work Phone: [phone] Lymphocytes (Bld) [#/Vol] 0.7 10*3/uL Low 1.0 - 4.3 10*3/uL [facility] Work Phone: [phone] Lymphocytes/100 WBC (Bld) 6.2 % Low 20.0 - 40.0 % [facility] Work Phone: [phone] MCH (RBC) [Entitic mass] 33.4 pg 26.0 - 34.0 pg [facility] Work Phone: [phone] MCHC (RBC) [Mass/Vol] 33.0 % 32.0 - 36.0 % [facility] Work Phone: [phone] MCV (RBC) [Entitic vol] 101.0 fL High 80.0 - 98.0 fL [facility] Work Phone: [phone] Monocytes (Bld) [#/Vol] 0.6 10*3/uL 0.0 - 0.8 10*3/uL [facility] Work Phone: [phone] Monocytes/100 WBC (Bld) 5.6 % 2.0 - 10.0 % [facility] Work Phone: [phone] Platelet mean volume (Bld) [Entitic vol] 7.4 fL 7.4 - 10.4 fL [facility] Work Phone: [phone] Platelets (Bld) [#/Vol] 180 10*3/uL 140 - 440 10*3/uL [facility] Work Phone: RBC (Bld) [#/Vol] 2.62 10*6/uL Low 4.40 - 5.90 10*6/uL [facility] Work Phone: WBC (Bld) [#/Vol] 10.7 10*3/uL 3.6 - 10.7 10*3/uL [facility] Work Phone: Test Performed by [facility], [address] [place] [address] [facility] Work Phone: CR Chest Portableon 09-22-19 CR Chest Portable Patient Name: AMAURY DAVIS Diagnostic Radiology ACCESSION EXAM DATE/TIME PROCEDURE ORDERING PROVIDER [id number] 09/21/2020 11:36 EDT CR Chest Portable CLARICE RAUSCH CPT code 38631 Reason For Exam (CR Chest Portable) line [...] Transcribed Date and Time: 09/21/2020 11:21 Normal [facility] CR Chest Portable Patient Name: AMAURY DAVIS Diagnostic Radiology ACCESSION EXAM DATE/TIME PROCEDURE ORDERING PROVIDER [id number] 09/21/2020 05:45 EDT CR Chest Portable [place] LIZKYLAH CPT code 91691 Reason For Exam (CR Chest Portable) Right [...] Transcribed Date and Time: 09/21/2020 7:29 Normal [facility] Hemogram w/ Autodiffon 09-21 Abs Baso Cnt 0.0 10*3/uL Normal 0.0-0.2 [facility] Comment on above: Performed By: #### B MP3, HEMDF #### [address] Abs Neutrophile Cnt 9.4 10*3/uL High 1.8-7.0 [facility] Comment on above: Performed By: #### B MP3, HEMDF #### [address] [address] [place] [address] Basophils/100 WBC (Bld) 0.2 % Normal 0.0-2.0 [facility] Comment on above: Performed By: #### B MP3, HEMDF #### [address] [address] [place] Eosinophils (Bld) [#/Vol] 0.0 10*3/uL Normal 0.0-0.5 [facility] Comment on above: Performed By: #### B MP3, HEMDF #### [address] [address] [address] [place], [place] Eosinophils/100 WBC (Bld) 0.1 % Low 1.0-6.0 [facility] Comment on above: Performed By: #### B MP3, HEMDF #### [address] [address] [address] [place], [place] Erythrocyte distribution width (RBC) [Ratio] 15.5 % High 11.5-14.5 [facility] Comment on above: Performed By: #### B MP3, HEMDF #### [address] [address] [address] [place], [place] Granulocytes/100 WBC (Bld) 87.9 % High 40.0-80.0 [facility] Comment on above: Performed By: #### B MP3, HEMDF #### [address] [address] [address] [place], [place] Hematocrit (Bld) [Volume fraction] 26.5 % Low 40.0-52.0 [facility] Comment on above: Performed By: #### B MP3, HEMDF #### [address] [address] [address] [place] Hemoglobin (Bld) [Mass/Vol] 8.7 g/dL Low 13.0-18.0 [facility] Comment on above: Performed By: #### B MP3, HEMDF #### [address] [address] [address] [place], [place] Lymphocytes (Bld) [#/Vol] 0.7 10*3/uL Low 1.0-4.3 [facility] Comment on above: Performed By: #### B MP3, HEMDF #### [address] [address] [address] [place], [place] Lymphocytes/100 WBC (Bld) 6.2 % Low 20.0-40.0 [facility] Comment on above: Performed By: #### B MP3, HEMDF #### [address] [address] [address] [place] MCH (RBC) [Entitic mass] 33.4 pg Normal 26.0-34.0 [facility] Comment on above: Performed By: #### B MP3, HEMDF #### [address] [address] [address] [place] MCHC 33.0 % Normal 32.0-36.0 [facility] Comment on above: Performed By: #### B MP3, HEMDF #### [address] [address] [address] [place] MCV (RBC) [Entitic vol] 101.0 fL High 80.0-98.0 [facility] Comment on above: Performed By: #### B MP3, HEMDF #### [address] [address] [address] [place], [place] Monocytes (Bld) [#/Vol] 0.6 10*3/uL Normal 0.0-0.8 [facility] Comment on above: Performed By: #### B MP3, HEMDF #### [address] [address] [place], [place] Monocytes/100 WBC (Bld) 5.6 % Normal 2.0-10.0 [facility] Comment on above: Performed By: #### B MP3, HEMDF #### [address] [address] [address] [place] Platelet mean volume (Bld) [Entitic vol] 7.4 fL Normal 7.4-10.4 [facility] Comment on above: Performed By: #### B MP3, HEMDF #### [address] [address] [place], [place] Platelets (Bld) [#/Vol] 180 10*3/uL Normal 140-440 [facility] Comment on above: Performed By: #### B MP3, HEMDF #### [address] [address] [place], [place] RBC (Bld) [#/Vol] 2.62 10*6/uL Low 4.40-5.90 [facility] Comment on above: Performed By: #### B MP3, HEMDF #### [facility] [address] [place] [address] WBC (Bld) [#/Vol] 10.7 10*3/uL Normal 3.6-10.7 [facility] Comment on above: Performed By: #### B MP3, HEMDF #### [facility] [address] [place] [address] XR CHEST PORTABLEon 09-22-19 Jax, [facility] Incoming Radiology Results From [facility] - 09/21/2020 11:36 AM EDT Patient Name: AMAURY BLANK Diagnostic Radiology ACCESSION EXAM DATE/TIME PROCEDURE ORDERING PROVIDER [id number] 09/21/2020 11:36 EDT CR Chest Portable CLARICE RAUSCH CPT code 13125 Reason For Exam (CR Chest Portable) line [...] HARLAN Transcribed Date and Time: 09/21/2020 11:21 [facility] Work Phone: Patient Name: AMAURY DAVIS Diagnostic Radiology ACCESSION EXAM DATE/TIME PROCEDURE ORDERING PROVIDER [id number] 09/21/2020 11:36 EDT CR Chest Portable CLARICE RAUSCH CPT code 01059 Reason For Exam (CR Chest Portable) line [...] [facility] Work Phone: Patient Name: AMAURY DAVIS [facility]#: [id number] Diagnostic Radiology ACCESSION EXAM DATE/TIME PROCEDURE ORDERING PROVIDER [id number] 09/21/2020 05:45 EDT CR Chest Portable [place] LIZ SARAH CPT code 26071 Reason For Exam (CR Chest Portable) Right [...] Phone: Jax, [facility] Incoming Radiology Results From [facility] - 09/21/2020 7:37 AM EDT Patient [facility]: [id number] Diagnostic Radiology ACCESSION EXAM DATE/TIME PROCEDURE ORDERING PROVIDER [id number] 09/21/2020 05:45 EDT CR Chest Portable [place] LIZ SARAH CPT code 40358 Reason For Exam (CR Chest Portable) Right [...] and Time: 09/21/2020 7:29 [facility] Work Phone: Basic Metabolic Panelon 08-29 Calcium [Mass/Vol] 8.7 mg/dL Normal 8.4-10.4 [facility] Comment on above: Performed By: #### B MP3, HEMDF #### [facility] [address] [place], [place] Glucose [Mass/Vol] 186 mg/dL High 70-100 [facility] Comment on above: Performed By: #### B MP3, HEMDF #### [facility] [address] [place], [place] Anion gap [Moles/Vol] 6 mmol/L Normal 3-13 [facility] Comment on above: Performed By: #### B MP3, HEMDF #### [facility] [address] [place], [place] CO2 [Moles/Vol] 18 mmol/L Low 22-30 [facility] Comment on above: Performed By: #### B MP3, HEMDF #### [facility] [address] [place], [place] Creatinine [Mass/Vol] 1.73 mg/dL High 0.52-1.25 [facility] Comment on above: Performed By: #### B MP3, HEMDF #### [facility] [address] [place], [place] GFR/1.73 sq M.predicted among blacks MDRD (S/P/Bld) [Vol rate/Area] 42.5 mL/min/{1.73_m2} Abnormal >60 [facility] Comment on above: Performed By: #### B MP3, HEMDF #### [facility] [address] [place], [place] GFR/1.73 sq M.predicted among non-blacks MDRD (S/P/Bld) [Vol rate/Area] 36.7 mL/min/{1.73_m2} Abnormal >60 [facility] Comment on above: Result Comment: KDIG O [...] Performed By: #### B MP3, HEMDF #### [facility] [address] [place], [place] Urea nitrogen [Mass/Vol] 40 mg/dL High 7-20 [facility] Comment on above: Performed By: #### B MP3, HEMDF #### [address] [address] [place], [place] Chloride [Moles/Vol] 106 mmol/L Normal 98-107 [facility] Comment on above: Performed By: #### B MP3, HEMDF #### [facility] [address] [place], [place] Potassium [Moles/Vol] 5.2 mmol/L High 3.5-5.1 [facility] Comment on above: Performed By: #### Terese MP3, HEMDF #### [address] [address] [address], [place] Sodium [Moles/Vol] 131 mmol/L Low 135-145 [facility] Comment on above: Performed By: #### B MP3, HEMDF #### [address] [address] [place] [address] Anion gap [Moles/Vol] 6 mmol/L 3 - 13 mmol/L [facility] Work Phone: Calcium [Mass/Vol] 8.7 mg/dL 8.4 - 10. 4 mg/dL [facility] Work Phone: Chloride [Moles/Vol] 106 mmol/L 98 - 10 7 mmol/L [facility] Work Phone: CO2 [Moles/Vol] 18 mmol/L Low 22 - 30 mmol/L [facility] Work Phone: Creatinine [Mass/Vol] 1.73 mg/dL High 0.52 - 1.25 mg/dL [facility] Work Phone: EGFR IF NonAfrican Mexican 36.7 mL/min Abnormal >60 [facility] Work Phone: [...] mg/dL [facility] Work Phone: Test Performed by [facility], [address] [place] [address] [facility] Work Phone: CBC Auto Differentialon 03-2 Absolute Baso # 0.0 10*3/uL 0.0 - 0.2 10*3/uL [facility] Work Phone: [phone] Absolute Neut # 7.0 10*3/uL 1.8 - 7.0 10*3/uL [facility] Work Phone: [phone] Basophils/100 WBC (Bld) 0.1 % 0.0 - 2.0 % [facility] Work Phone: [phone] Eosinophils (Bld) [#/Vol] 0.0 10*3/uL 0.0 - 0.5 10*3/uL [facility] Work Phone: [phone] Eosinophils/100 WBC (Bld) 0.0 % Low 1.0 - 6.0 % [facility] Work Phone: [phone] Erythrocyte distribution width (RBC) [Ratio] 15.2 % High 11.5 - 14.5 % [facility] Work Phone: [phone] Granulocytes/100 WBC (Bld) 93.9 % High 40.0 - 80.0 % [facility] Work Phone: [phone] Hematocrit (Bld) [Volume fraction] 27.4 % Low 40.0 - 52.0 % [facility] Work Phone: [phone] Hemoglobin (Bld) [Mass/Vol] 8.9 g/dL Low 13.0 - 18.0 g/dL [facility] Work Phone: [phone] Interpretation and review of laboratory results Abnormal [facility] Work Phone: [phone] Lymphocytes (Bld) [#/Vol] 0.3 10*3/uL Low 1.0 - 4.3 10*3/uL [facility] Work Phone: [phone] Lymphocytes/100 WBC (Bld) 3.6 % Low 20.0 - 40.0 % [facility] Work Phone: [phone] MCH (RBC) [Entitic mass] 33.1 pg 26.0 - 34.0 pg [facility] Work Phone: [phone] MCHC (RBC) [Mass/Vol] 32.5 % 32.0 - 36.0 % [facility] Work Phone: [phone] MCV (RBC) [Entitic vol] 101.5 fL High 80.0 - 98.0 fL [facility] Work Phone: Monocytes (Bld) [#/Vol] 0.2 10*3/uL 0.0 - 0.8 10*3/uL [facility] Work Phone: Monocytes/100 WBC (Bld) 2.4 % 2.0 - 10.0 % [facility] Work Phone: Platelet mean volume (Bld) [Entitic vol] 8.6 fL 7.4 - 10.4 fL [facility] Work Phone: Platelets (Bld) [#/Vol] 152 10*3/uL 140 - 440 10*3/uL [facility] Work Phone: RBC (Bld) [#/Vol] 2.70 10*6/uL Low 4.40 - 5.90 10*6/uL [facility] Work Phone: WBC (Bld) [#/Vol] 7.6 10*3/uL 3.6 - 10.7 10*3/uL [facility] Work Phone: Test Performed by [facility], [address] [place] [id number] [facility] Work Phone: CR Chest Portableon 09-21-19 CR Chest Portable Patient Name: AMAURY DAVIS Diagnostic Radiology ACCESSION EXAM DATE/TIME PROCEDURE ORDERING PROVIDER [id number] 09/20/2020 05:52 EDT CR Chest Portable [place] LIZ SARAH CPT code 10459 Reason For Exam (CR Chest Portable) Right [...] Transcribed Date and Time: 09/20/2020 7:33 Normal [facility] [facility] CULTURE MYCOBACTERIA Conc.on 09-20-2020 CULTURE MYCOBACTERIA Conc. CULTURE MYCOBACTERIA Conc. --> Status: F No acid-fast bacilli isolated after 6 weeks incubation. STAIN ACID-FAST --> Status: F No acid-fast bacilli seen in smear. - Method: Fluorescent Stain - Method: Fluorescent Stain Normal [facility] Comment on above: Performed By: #### C /TBC #### [address] [address] EKG 12 Leadon 09-20-2020 Jax, [facility] Incoming Cardiology Results From [facility]/Tomy - 09/20/2020 5:33 PM EDT 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, old Electronically Signed On 09-20-2020 17:32:31 EDT by Nicki KELLY Work Phone: [facility] Test Date: 2020-09-19 Pat Name: Amaury Blank Department: 1AU Room: 1HLU Gender: M Forensic Science Examiner: MARLON : 1940 Requested By: KYLAH LIZ Order Number: [id number] Reading : Nicki Raymundo Measurements Intervals [place] Rate: 53 P: WV: QRS: -30 QRSD: 115 T: -85 QT: 448 QTc: 421 Interpretive Statements Atrial flutter with predominant 4:1 AV block Nonspecific intraventricular conduction delay 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 - Method: Direct Exam by Calcofluor Stain [facility] Work Phone: Test Performed by [facility], [address] [place] [address] [facility] Work Phone: Hemogram w/ Autodiffon 09-20 Abs Baso Cnt 0.0 10*3/uL Normal 0.0-0.2 [facility] Comment on above: Performed By: #### B MP3, HEMDF #### [address] [address] Abs Neutrophile Cnt 7.0 10*3/uL Normal 1.8-7.0 [facility] Comment on above: Performed By: #### B MP3, HEMDF #### [address] [address] Basophils/100 WBC (Bld) 0.1 % Normal 0.0-2.0 S [facility] Comment on above: Performed By: #### B MP3, HEMDF #### [address] [address] Eosinophils (Bld) [#/Vol] 0.0 10*3/uL Normal 0.0-0.5 [facility] Comment on above: Performed By: #### B MP3, HEMDF #### [address] [address] Eosinophils/100 WBC (Bld) 0.0 % Low 1.0-6.0 [facility] Comment on above: Performed By: #### B MP3, HEMDF #### [address] [address] Granulocytes/100 WBC (Bld) 93.9 % High 40.0-80.0 [facility] Comment on above: Performed By: #### B MP3, HEMDF #### [facility] [address] [place], [place] Lymphocytes (Bld) [#/Vol] 0.3 10*3/uL Low 1.0-4.3 [facility] Comment on above: Performed By: #### B MP3, HEMDF #### [place] [address] [address] [place], [place] Lymphocytes/100 WBC (Bld) 3.6 % Low 20.0-40.0 [facility] Comment on above: Performed By: #### B MP3, HEMDF #### [place] [address] [address] [place], [place] Monocytes (Bld) [#/Vol] 0.2 10*3/uL Normal 0.0-0.8 [facility] Comment on above: Performed By: #### B MP3, HEMDF #### [place] [address] [address] [place], [place] Monocytes/100 WBC (Bld) 2.4 % Normal 2.0-10.0 [facility] Comment on above: Performed By: #### B MP3, HEMDF #### [place] [address] [address] [place], [place] Erythrocyte distribution width (RBC) [Ratio] 15.2 % High 11.5-14.5 [facility] Comment on above: Performed By: #### B MP3, HEMDF #### [address] [place] [address] [address] [place], [place] Hematocrit (Bld) [Volume fraction] 27.4 % Low 40.0-52.0 [facility] Comment on above: Performed By: #### B MP3, HEMDF #### [place] [address] [address] [place], [place] Hemoglobin (Bld) [Mass/Vol] 8.9 g/dL Low 13.0-18.0 [facility] Comment on above: Performed By: #### B MP3, HEMDF #### [place] [address] [address] [place], [place] MCH (RBC) [Entitic mass] 33.1 pg Normal 26.0-34.0 [facility] Comment on above: Performed By: #### B MP3, HEMDF #### [facility] [address] [place], [place] MCHC 32.5 % Normal 32.0-36.0 [facility] Comment on above: Performed By: #### B MP3, HEMDF #### [place] [address] [address] [place], [place] MCV (RBC) [Entitic vol] 101.5 fL High 80.0-98.0 [facility] Comment on above: Performed By: #### B MP3, HEMDF #### [place] [address] [address] [place], [place] Platelet mean volume (Bld) [Entitic vol] 8.6 fL Normal 7.4-10.4 [facility] Comment on above: Performed By: #### Terese SHAY, HEMDF #### [place] [address] [address] [place], [place] Platelets (Bld) [#/Vol] 152 10*3/uL Normal 140-440 [facility] Comment on above: Performed By: #### B JASPAL, HEMDF #### [place] [address] [address] [place], [place] RBC (Bld) [#/Vol] 2.70 10*6/uL Low 4.40-5.90 [facility] Comment on above: Performed By: #### B MP3, HEMDF #### [place] [address] [address] [place], [place] WBC (Bld) [#/Vol] 7.6 10*3/uL Normal 3.6-10.7 [facility] Comment on above: Performed By: #### B MP3, HEMDF #### [place] [address] [address] [place], [place] STAIN FUNGUSon 09-20-2020 STAIN FUNGUS STAIN FUNGUS --> Sta tus: F No fungal elements seen. - Method: Direct Exam by Calcofluor Stain - Method: Direct Exam by Calcofluor Stain Normal [facility] Comment on above: Performed By: #### C /TBC #### [facility] [address] [place] [address] Surgical Pathologyon 021 Sodium [Moles/Vol] SEE BELOW [facility] Work Phone: [phone] [facility] PATHOLOGY AND LABORATORY MEDICINE [address] [place], [place] [phone] FINAL SURGICAL PATHOLOGY REPORT NAME: AMAURY BLANK N [id number] : 1940 80 Y Deep [facility] NO.: [id number] LOCATION: [address] [place] [address] 25 PROCEDURE 09/19/2020 DATE: SURGEON: KASSANDRA DAVIDSON MD RECEIVED 09/19/2020 DATE: ATTENDING: KASSANDRA DAVIDSON MD REPORT DATE: 09/20/2020 COPIES TO: DIAGNOSIS: RIGHT PLEURAL BIOPSY - MARKED ORGANIZING ACUTE AND CHRONIC INFLAMMATION Comment: Biopsy consists of pleural tissue with extensive acute and chronic inflammation, with granulation tissue. 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 No evidence of granulomas or malignancy. [place] Signature> AMILCAR HYDE M.D. CLINICAL INFORMATION: Not [...] characteristics determined by the clinical laboratories of [facility]. They have not been cleared by the [...] negativity on decalcified specimens. Professional Performing Location: [place] [address]. DEPARTMENT OF PATHOLOGY AND LABORATORY MEDICINE [place], [place] [address] [facility] Work Phone: XR CHEST PORTABLEon 09-21-19 Jax, [facility] Incoming [facility] - 09/20/2020 7:37 AM EDT Patient Name: AMAURY BLANK Diagnostic Radiology ACCESSION EXAM DATE/TIME PROCEDURE ORDERING PROVIDER [id number] 09/20/2020 05:52 EDT CR Chest Portable [place] LIZ SARAH CPT code 97567 Reason For Exam (CR Chest Portable) Right [...] [facility] Work Phone: Patient Name: [id number] Diagnostic Radiology ACCESSION EXAM DATE/TIME PROCEDURE ORDERING PROVIDER [id number] 09/20/2020 05:52 EDT CR Chest Portable [place] LIZ DUDLEY CPT code 07645 Reason For Exam (CR Chest Portable) Right [...] and Time: 09/20/2020 7:33 [facility] Work Phone: Basic Metabolic Panelon 08-29 Anion gap [Moles/Vol] 5 mmol/L Normal 3-13 [facility] Comment on above: Performed By: #### B NP3, BMP3, MG3 #### [facility] [address] [place], [place] Calcium [Mass/Vol] 8.6 mg/dL Normal 8.4-10.4 [facility] Comment on above: Performed By: #### B NP3, BMP3, MG3 #### [facility] [address] [place], [place] CO2 [Moles/Vol] 21 mmol/L Low 22-30 [facility] Comment on above: Performed By: #### B NP3, BMP3, MG3 #### [facility] [address] [place], [place] Creatinine [Mass/Vol] 1.79 mg/dL High 0.52-1.25 [facility] Comment on above: Performed By: #### B NP3, BMP3, MG3 #### [facility] [address] [place], [place] GFR/1.73 sq M.predicted among blacks MDRD (S/P/Bld) [Vol rate/Area] 40.8 mL/min/{1.73_m2} Abnormal >60 [facility] Comment on above: Performed By: #### B NP3, BMP3, MG3 #### [facility] [address] [place], [place] GFR/1.73 sq M.predicted among non-blacks MDRD (S/P/Bld) [Vol rate/Area] 35.2 mL/min/{1.73_m2} Abnormal >60 [facility] Comment on above: Result Comment: KDIG O [...] By: #### B NP3, BMP3, MG3 #### [facility] [address] [place] [address] Glucose [Mass/Vol] 106 mg/dL High 70-100 [facility] Comment on above: Performed By: #### B NP3, BMP3, MG3 #### [facility] [address] [place] [address] Urea nitrogen [Mass/Vol] 44 mg/dL High 7-20 [facility] Comment on above: Performed By: #### B NP3, BMP3, MG3 #### [facility] [address] [place] [address] Chloride [Moles/Vol] 106 mmol/L Normal 98-107 [facility] Comment on above: Performed By: #### B NP3, BMP3, MG3 #### [facility] [address] [place] [address] Potassium [Moles/Vol] 4.8 mmol/L Normal 3.5-5.1 [facility] Comment on above: Performed By: #### B NP3, BMP3, MG3 #### [facility] [address] [place] [address] Sodium [Moles/Vol] 133 mmol/L Low 135-145 [facility] Comment on above: Performed By: #### B NP3, BMP3, MG3 #### [facility] [address] [place] [address] Anion gap [Moles/Vol] 5 mmol/L 3 - 13 mmol/L [facility] Work Phone: Calcium [Mass/Vol] 8.6 mg/dL 8.4 - 10. 4 mg/dL [facility] Work Phone: Chloride [Moles/Vol] 106 mmol/L 98 - 10 7 mmol/L [facility] Work Phone: CO2 [Moles/Vol] 21 mmol/L Low 22 - 30 mmol/L [facility] Work Phone: Creatinine [Mass/Vol] 1.79 mg/dL High 0.52 - 1.25 mg/dL [facility] Work Phone: EGFR IF NonAfrican Mexican 35.2 mL/min Abnormal >60 [facility] Work Phone: [...] [facility] Work Phone: Test Performed by [address] [address] [facility] Work Phone: [phone] CBC Auto Differentialon 08-29 Erythrocyte distribution width (RBC) [Ratio] 14.8 % High 11.5 - 14.5 % [facility] Work Phone: [phone] Hematocrit (Bld) [Volume fraction] 28.3 % Low 40.0 - 52.0 % [facility] Work Phone: [phone] Hemoglobin (Bld) [Mass/Vol] 9.4 g/dL Low 13.0 - 18.0 g/dL [facility] Work Phone: [phone] Interpretation and review of laboratory results Abnormal [facility] Work Phone: [phone] MCH (RBC) [Entitic mass] 33.2 pg 26.0 - 34.0 pg [facility] Work Phone: [phone] MCHC (RBC) [Mass/Vol] 33.3 % 32.0 - 36.0 % [facility] Work Phone: [phone] MCV (RBC) [Entitic vol] 99.9 fL High 80.0 - 98.0 fL [facility] Work Phone: [phone] Platelet mean volume (Bld) [Entitic vol] 7.8 fL 7.4 - 10.4 fL [facility] Work Phone: [phone] Platelets (Bld) [#/Vol] 155 10*3/uL 140 - 440 10*3/uL [facility] Work Phone: [phone] RBC (Bld) [#/Vol] 2.84 10*6/uL Low 4.40 - 5.90 10*6/uL [facility] Work Phone: [phone] WBC (Bld) [#/Vol] 6.4 10*3/uL 3.6 - 10.7 10*3/uL [facility] Work Phone: [phone] Test Performed by [facility], [address] [place] [address] [facility] Work Phone: [phone] CR Chest Portableon 09-20-19 21 CR Chest Portable Patient Name: AMAURY DAVIS Diagnostic Radiology ACCESSION EXAM DATE/TIME PROCEDURE ORDERING PROVIDER [id number] 09/19/2020 10:32 EDT CR Chest Portable [place] LIZ KYLAH CPT code 32946 Reason For Exam (CR Chest Portable) Chest [...] Transcribed Date and Time: 09/19/2020 10:23 Normal [facility] CR Chest Portable Patient Name: [facility]IS [id number] Diagnostic Radiology ACCESSION EXAM DATE/TIME PROCEDURE ORDERING PROVIDER [id number] 09/19/2020 06:56 EDT CR Chest Portable [place] LIZ, KYLAH CPT code 51108 Reason For Exam (CR Chest Portable) Right [...] RISA Transcribed Date and Time: 09/19/2020 7:57 Normal [facility] Hemogram w/ Autodiffon 09-19 Erythrocyte distribution width (RBC) [Ratio] 14.8 % High 11.5-14.5 [facility] Comment on above: Performed By: #### B NP3, BMP3, MG3 #### [facility] [address] [place], [place] Hematocrit (Bld) [Volume fraction] 28.3 % Low 40.0-52.0 [facility] Comment on above: Performed By: #### B NP3, BMP3, MG3 #### [place] [address] [address] [place], [place] Hemoglobin (Bld) [Mass/Vol] 9.4 g/dL Low 13.0-18.0 [facility] Comment on above: Performed By: #### B NP3, BMP3, MG3 #### [place] [address] [address] [place], [place] MCH (RBC) [Entitic mass] 33.2 pg Normal 26.0-34.0 [facility] Comment on above: Performed By: #### B NP3, BMP3, MG3 #### [place] [address] [address] [place], [place] MCHC 33.3 % Normal 32.0-36.0 [facility] Comment on above: Performed By: #### B NP3, BMP3, MG3 #### [place] [address] [address] [place], [place] MCV (RBC) [Entitic vol] 99.9 fL High 80.0-98.0 [facility] Comment on above: Performed By: #### B NP3, BMP3, MG3 #### [place] [address] [address] [place], [place] Platelet mean volume (Bld) [Entitic vol] 7.8 fL Normal 7.4-10.4 [facility] Comment on above: Performed By: #### B NP3, BMP3, MG3 #### [place] [address] [address] [place], [place] Platelets (Bld) [#/Vol] 155 10*3/uL Normal 140-440 [facility] Comment on above: Performed By: #### B NP3, BMP3, MG3 #### [place] [address] [place], [place] RBC (Bld) [#/Vol] 2.84 10*6/uL Low 4.40-5.90 [facility] Comment on above: Performed By: #### B NP3, BMP3, MG3 #### [place] [address] [address] [place], [place] WBC (Bld) [#/Vol] 6.4 10*3/uL Normal 3.6-10.7 [facility] Comment on above: Performed By: #### B NP3, BMP3, MG3 #### [place] [address] [address] [place], [place] Manual Diffon 09-19-2020 Abs Baso Cnt 0.1 10*3/uL Normal 0.0-0.2 [facility] Comment on above: Performed By: #### B NP3, BMP3, MG3 #### [place] [address] [address] [place], [place] Abs Eosin Cnt 0.0 10*3/uL Normal 0.0-0.5 [facility] Comment on above: Performed By: #### B NP3, BMP3, MG3 #### [place] [address] [address] [place], [place] Abs Lymph Cnt 1.1 10*3/uL Normal 1.1-4.5 [facility] Comment on above: Performed By: #### B NP3, BMP3, MG3 #### [place] [address] [address] [place], [place] Abs Monocyte Cnt 0.3 10*3/uL Normal 0.2-1.1 [facility] Comment on above: Performed By: #### B NP3, BMP3, MG3 #### [address] Abs Neutrophile Cnt 4.9 10*3/uL Normal 2.2-8.2 [facility] Comment on above: Performed By: #### B NP3, BMP3, MG3 #### [facility] [address] [place], [place] Bands 0 % Normal 0-3 [facility] Comment on above: Performed By: #### B NP3, BMP3, MG3 #### [facility] [address] [place], [place] Basophils 1 % Normal 0-2 [facility] Comment on above: Performed By: #### B NP3, BMP3, MG3 #### [facility] [address] [place], [place] Anil Cells Slight Normal [facility] Comment on above: Performed By: #### B NP3, BMP3, MG3 #### [facility] [address] [place], [place] Cells counted 100 Normal [facility] Comment on above: Performed By: #### B NP3, BMP3, MG3 #### [facility] [address] [place], [place] Elliptocytes Slight Normal [facility] Comment on above: Performed By: #### B NP3, BMP3, MG3 #### [facility] [address] [place], [place] Eosinophils 0 % Low 1-6 [facility] Comment on above: Performed By: #### B NP3, BMP3, MG3 #### [facility] [address] [place], [place] Lymphocytes 17 % Low 20-40 [facility] Comment on above: Performed By: #### B NP3, BMP3, MG3 #### [facility] [address] [place], [place] Monocytes 5 % Normal 2-10 [facility] Comment on above: Performed By: #### B NP3, BMP3, MG3 #### [facility] [address] [place], [place] Ovalocytes Slight Normal [facility] Comment on above: Performed By: #### B NP3, BMP3, MG3 #### [facility] [address] [place], [place] Poikilocytosis Slight Normal [facility] Comment on above: Performed By: #### B NP3, BMP3, MG3 #### [facility] [address] [place] [address] RBC Morphology ABNORMAL Normal [facility] Comment on above: Performed By: #### B NP3, BMP3, MG3 #### [facility] [address] [place] [address] Seg Neutrophils 77 % Normal 40-80 [facility] Comment on above: Performed By: #### B NP3, BMP3, MG3 #### [facility] [address] [place] [address] Manual Differentialon 2020 Absolute Baso # 0.1 10*3/uL 0.0 - 0.2 10*3/uL [facility] Work Phone: [phone] Absolute Eos # 0.0 10*3/uL 0.0 - 0.5 10*3/uL [facility] Work Phone: [phone] Absolute Lymph # 1.1 10*3/uL 1.1 - 4.5 10*3/uL [facility] Work Phone: [phone] Absolute [place] # 0.3 10*3/uL 0.2 - 1.1 10*3/uL [facility] Work Phone: [phone] Absolute Neut # 4.9 10*3/uL 2.2 - 8.2 10*3/uL [facility] Work Phone: [phone] Bands 0 % 0 - 3 % [facility] Work Phone: [phone] Basophils 1 % 0 - 2 % [facility] Work Phone: [phone] Armour Cells Slight [facility] Work Phone: [phone] Elliptocytes Slight [facility] Work Phone: [phone] Eosinophils 0 % Low 1 - 6 % [facility] Work Phone: [phone] Interpretation and review of laboratory results Abnormal [facility] Work Phone: [phone] Lymphocytes 17 % Low 20 - 40 % [facility] Work Phone: [phone] Monocytes 5 % 2 - 10 % [facility] Work Phone: [phone] Ovalocytes Slight [facility] Work Phone: Poikilocytes Slight [facility] Work Phone: RBC morphology finding Nom (Bld) ABNORMAL [facility] Work Phone: Seg Neutrophils 77 % 40 - 80 % [facility] Work Phone: TOTAL CELLS COUNTED 100 [facility] Work Phone: Test Performed by [facility], [address] [place] [address] [facility] Work Phone: Op Noteon 09-19-2020 Op [...] Right empyema and hemothorax. Anesthesia: General endotracheal. Retail Business Development Manager: Kylah Liz M.D. Estimated Blood Loss: 50 [...] suctioned out. Two tubes were placed, one 24-Ghanaian [place] in the basilar surface and a straight 24-Ghanaian chest tube was placed in the posterior part of the right hemithorax. Incisions closed. The patient tolerated the procedure well. He was extubated and taken to PACU for recovery. [employer] Job ID: [id number] Kassandra Davidson MD DOD:09/19/2020 09:44 A GABRIELA/mariel DOT:09/19/2020 10:52 A Job Number: [id number] Document Number: [id number] cc: Kassandra Davidson MD [facility] [address] [place] [address] [address] [facility] [address] Alessio Robertson MD [address] [facility] [phone] [facility] [address] Normal [facility] Protime AND APTTon aPTT Coag (Bld) [Time] 44.7 s High 20.0-30.5 [facility] Comment on above: Result Comment: NOTE : The therapeutic time for Heparin anticoagulation, based on Xa activity inhibition, is an APTT of 46-80 seconds. Performed By: #### B NP3, BMP3, MG3 #### [facility] [address] [place] [address] INR 1.1 Normal 0.9-1.1 [facility] Comment on above: Result Comment: Abhishek mmended [...] By: #### B SOURAV3, ESTEFANY3, MG3 #### [facility] [employer] [address] [place] [phone] PT Coag (PPP) [Time] 11.8 s Normal 9.0-12.0 [facility] [employer] Comment on above: Result Comment: . Performed By: #### B SOURAV3, ESTEFANY3, MG3 #### [facility] [employer] [address] [place] [phone] Protime/INR & PTTon 09-20-19 aPTT Coag (Bld) [Time] 44.7 s High 20.0 - 30.5 s [facility] Work Phone: Comment on above: NOTE: The therapeuti c time for Heparin anticoagulation, based on Xa activity inhibition, is an APTT of 46-80 seconds. INR Coag (PPP) [Relative time] 1.1 {INR} [facility] Work Phone: Comment on above: Recommended Anticoag [...] Interpretation and review of laboratory results Abnormal [facility] Work Phone: PT Coag (PPP) [Time] 11.8 s 9.0 - 1 2.0 s [facility] Work Phone: Comment on above: . Test Performed by [facility] [employer], [address] [place] [address] [facility] Work Phone: Surgical Pathologyon 021 Surgical Pathology [id number] [facility] PATHOLOGY AND LABORATORY MEDICINE [address] [place] [address] [phone] FINAL SURGICAL PATHOLOGY REPORT NAME: AMAURY BLANK : 1940 80 Y Deep [place] NO.: [id number] LOCATION: [address] [place] [address] 25 PROCEDURE 09/19/2020 DATE: SURGEON: KASSANDRA DAVIDSON MD RECEIVED 09/19/2020 DATE: ATTENDING: KASSANDRA DAVIDSON MD REPORT DATE: 09/20/2020 COPIES TO: DIAGNOSIS: RIGHT PLEURAL BIOPSY - MARKED ORGANIZING ACUTE AND CHRONIC INFLAMMATION Comment: Biopsy consists of pleural tissue with extensive acute and chronic inflammation, with granulation tissue. 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 No evidence of granulomas or malignancy. [place] Signature> AMILCAR HYDE M.D. CLINICAL INFORMATION: Not [...] characteristics determined by the clinical laboratories of [facility]. They have not been cleared by the [...] negativity on decalcified specimens. Professional Performing Location: [address] [address]. DEPARTMENT OF PATHOLOGY AND LABORATORY MEDICINE [place], [place] [address] [email or web address] Normal [facility] TS GELon 09-19-2020 TS GEL ABO Group: O Rh, Gel: POS Antibody Screen Gel: NEG Normal [facility] Comment on above: Performed By: #### C /TBC #### [address] [address] TYPE AND SCREENon 09-19-2020 Sodium [Moles/Vol] O [facility] Work Phone: Sodium [Moles/Vol] Negative [facility] Work Phone: Sodium [Moles/Vol] Positive [facility] Work Phone: Test Performed by [facility], [address] [place] [address] [facility] Work Phone: XR CHEST PORTABLEon 09-20-19 [facility], [facility] Incoming Radiology Results From [facility] - 09/19/2020 10:32 AM EDT Patient Name: AMAURY BLANK Diagnostic Radiology ACCESSION EXAM DATE/TIME PROCEDURE ORDERING PROVIDER [id number] 09/19/2020 10:32 EDT CR Chest Portable Chadwick LIZ, DUDLEY CPT code 55633 Reason For Exam (CR Chest Portable) Chest [...] RISA Transcribed Date and Time: 09/19/2020 10:23 [facility] Work Phone: Patient Name: AMAURY DAVIS Diagnostic Radiology ACCESSION EXAM DATE/TIME PROCEDURE ORDERING PROVIDER [id number] 09/19/2020 10:32 EDT CR Chest Portable Chadwick LIZ, DUDLEY CPT code 23700 Reason For Exam (CR Chest Portable) Chest [...] RISA Transcribed Date and Time: 09/19/2020 10:23 [facility] Work Phone: [facility], [facility] Incoming Radiology Results From [facility] - 09/19/2020 8:05 AM EDT Patient Name: AMAURY BLANK Diagnostic Radiology ACCESSION EXAM DATE/TIME PROCEDURE ORDERING PROVIDER [id number] 09/19/2020 06:56 EDT CR Chest Portable Chadwick LIZ, KYLAH CPT code 32164 Reason For Exam (CR Chest Portable) Right [...] Radiology ACCESSION EXAM DATE/TIME PROCEDURE ORDERING PROVIDER [id number] 09/19/2020 06:56 EDT CR Chest Portable Chadwick LIZ, DUDLEY CPT code 69949 Reason For Exam (CR Chest Portable) Right [...] RISA Transcribed Date and Time: 09/19/2020 7:57 [facility] Work Phone: CBCon 09-18-2020 Erythrocyte distribution width (RBC) [Ratio] 14.5 % 11.5 - 14.5 % [facility] Work Phone: [phone] Hematocrit (Bld) [Volume fraction] 30.0 % Low 40.0 - 52.0 % [facility] Work Phone: [phone] Hemoglobin (Bld) [Mass/Vol] 9.9 g/dL Low 13.0 - 18.0 g/dL [facility] Work Phone: Interpretation and review of laboratory results Abnormal [facility] Work Phone: [phone] MCH (RBC) [Entitic mass] 33.0 pg 26.0 - 34.0 pg [facility] Work Phone: [phone] MCHC (RBC) [Mass/Vol] 33.0 % 32.0 - 36.0 % [facility] Work Phone: [phone] MCV (RBC) [Entitic vol] 99.9 fL High 80.0 - 98.0 fL [facility] Work Phone: [phone] Platelet mean volume (Bld) [Entitic vol] 8.8 fL 7.4 - 10.4 fL [facility] Work Phone: [phone] Platelets (Bld) [#/Vol] 155 10*3/uL 140 - 440 10*3/uL [facility] Work Phone: [phone] RBC (Bld) [#/Vol] 3.00 10*6/uL Low 4.40 - 5.90 10*6/uL [facility] Work Phone: WBC (Bld) [#/Vol] 10.6 10*3/uL 3.6 - 10.7 10*3/uL [facility] Work Phone: Test Performed by [facility], [address] [place] [address] [facility] Work Phone: CR Chest Portableon 09-19-19 CR Chest Portable [facility]: [id number] Radiology ACCESSION EXAM DATE/TIME PROCEDURE ORDERING PROVIDER [id number] 09/18/2020 06:45 EDT CR Chest Portable Chad[place] LIZ SARAH CPT code 63022 Reason For Exam (CR Chest Portable) Right [...] Transcribed Date and Time: 09/18/2020 7:55 Normal [facility] Hemogramon 09-18-2020 Erythrocyte distribution width (RBC) [Ratio] 14.5 % Normal 11.5-14.5 [facility] Comment on above: Performed By: #### B NP3, BMP3, MG3 #### [address] [address] [place], [place] Hematocrit (Bld) [Volume fraction] 30.0 % Low 40.0-52.0 [facility] Comment on above: Performed By: #### B NP3, BMP3, MG3 #### [address] [address] [place], [place] Hemoglobin (Bld) [Mass/Vol] 9.9 g/dL Low 13.0-18.0 [facility] Comment on above: Performed By: #### B NP3, BMP3, MG3 #### [address] MCH (RBC) [Entitic mass] 33.0 pg Normal 26.0-34.0 [facility] Comment on above: Performed By: #### B NP3, BMP3, MG3 #### [address] [address] [place], [place] MCHC 33.0 % Normal 32.0-36.0 [facility] Comment on above: Performed By: #### B NP3, BMP3, MG3 #### [address] MCV (RBC) [Entitic vol] 99.9 fL High 80.0-98.0 S [facility] Comment on above: Performed By: #### B NP3, BMP3, MG3 #### [address] Platelet mean volume (Bld) [Entitic vol] 8.8 fL Normal 7.4-10.4 [facility] Comment on above: Performed By: #### B NP3, BMP3, MG3 #### [address] Platelets (Bld) [#/Vol] 155 10*3/uL Normal 140-440 [facility] Comment on above: Performed By: #### B NP3, BMP3, MG3 #### [address] RBC (Bld) [#/Vol] 3.00 10*6/uL Low 4.40-5.90 [facility] Comment on above: Performed By: #### B NP3, BMP3, MG3 #### [facility] [address] [place], [place] WBC (Bld) [#/Vol] 10.6 10*3/uL Normal 3.6-10.7 [facility] Comment on above: Performed By: #### B NP3, BMP3, MG3 #### [address] [address] [place], [place] Renal Functionon 09-18-2020 Anion gap [Moles/Vol] 5 mmol/L Normal 3-13 [facility] Comment on above: Performed By: #### B NP3, BMP3, MG3 #### [address] [address] [place], [place] Calcium [Mass/Vol] 8.5 mg/dL Normal 8.4-10.4 [facility] Comment on above: Performed By: #### B NP3, BMP3, MG3 #### [address] [address] [place], [place] CO2 [Moles/Vol] 20 mmol/L Low 22-30 [facility] Comment on above: Performed By: #### B NP3, BMP3, MG3 #### [address] [address] [place], [place] Creatinine [Mass/Vol] 1.80 mg/dL High 0.52-1.25 [facility] Comment on above: Performed By: #### B NP3, BMP3, MG3 #### [facility] [address] [place], [place] GFR/1.73 sq M.predicted among blacks MDRD (S/P/Bld) [Vol rate/Area] 40.5 mL/min/{1.73_m2} Abnormal >60 [facility] Comment on above: Performed By: #### B NP3, BMP3, MG3 #### [address] [place] [address] GFR/1.73 sq M.predicted among non-blacks MDRD (S/P/Bld) [Vol rate/Area] 35.0 mL/min/{1.73_m2} Abnormal >60 [facility] Comment on above: Result Comment: KDIG O [...] By: #### B NP3, BMP3, MG3 #### [facility] [address] [place] [address] Glucose [Mass/Vol] 112 mg/dL High 70-100 [facility] Comment on above: Performed By: #### B NP3, BMP3, MG3 #### [facility] [address] [place] [address] Phosphate [Mass/Vol] 3.6 mg/dL Normal 2.5-4.5 [facility] Comment on above: Performed By: #### B NP3, BMP3, MG3 #### [facility] [address] [place] [address] Urea nitrogen [Mass/Vol] 50 mg/dL High 7-20 [facility] Comment on above: Performed By: #### B NP3, BMP3, MG3 #### [facility] [address] [place] [address] Albumin [Mass/Vol] 2.1 g/dL Low 3.5-5.0 [facility] Comment on above: Performed By: #### B NP3, BMP3, MG3 #### [facility] [address] [place] [address] Chloride [Moles/Vol] 106 mmol/L Normal 98-107 [facility] Comment on above: Performed By: #### B NP3, BMP3, MG3 #### [facility] [address] [place] [address] Potassium [Moles/Vol] 4.9 mmol/L Normal 3.5-5.1 [facility] Comment on above: Performed By: #### B NP3, BMP3, MG3 #### [facility] [address] [place] [address] Sodium [Moles/Vol] 131 mmol/L Low 135-145 [facility] Comment on above: Performed By: #### B NP3, BMP3, MG3 #### [facility] [address] [place] [address] Renal Function Panelon 09-18 Albumin [Mass/Vol] 2.1 g/dL Low 3.5 - 5.0 g/dL [facility] Work Phone: Anion gap [Moles/Vol] 5 mmol/L 3 - 13 mmol/L [facility] Work Phone: Calcium [Mass/Vol] 8.5 mg/dL 8.4 - 10. 4 mg/dL [facility] Work Phone: Chloride [Moles/Vol] 106 mmol/L 98 - 10 7 mmol/L [facility] Work Phone: CO2 [Moles/Vol] 20 mmol/L Low 22 - 30 mmol/L [facility] Work Phone: Creatinine [Mass/Vol] 1.8 mg/dL High 0.52 - 1.25 mg/dL [facility] Work Phone: EGFR IF NonAfrican Mexican 35.0 mL/min Abnormal >60 [facility] Work Phone: [...] mg/dL [facility] Work Phone: Test Performed by [facility], [address] [place] [address] [facility] Work Phone: XR CHEST PORTABLEon 09-19-19 [facility], [facility] Incoming Radiology Results From [facility] - 09/18/2020 7:58 AM EDT Patient Name: AMAURY BLANK Diagnostic Radiology ACCESSION EXAM DATE/TIME PROCEDURE ORDERING PROVIDER [id number] 09/18/2020 06:45 EDT CR Chest Portable Chadwick LIZ, DUDLEY CPT code 92539 Reason For Exam (CR Chest Portable) Right [...] [facility] Work Phone: Patient Name: AMAURY DAVIS [facility]#: [id number] Diagnostic Radiology ACCESSION EXAM DATE/TIME PROCEDURE ORDERING PROVIDER [id number] 09/18/2020 06:45 EDT CR Chest Portable Chadwick LIZ, DUDLEY CPT code 12970 Reason For Exam (CR Chest Portable) Right [...] NEIL Transcribed Date and Time: 09/18/2020 7:55 [facility] Work Phone: CBC Auto Differentialon 03- Absolute Baso # 0.1 10*3/uL 0.0 - 0.2 10*3/uL [facility] Work Phone: Absolute Neut # 6.6 10*3/uL 1.8 - 7.0 10*3/uL [facility] Work Phone: Basophils/100 WBC (Bld) 0.7 % 0.0 - 2.0 % [facility] Work Phone: Eosinophils (Bld) [#/Vol] 0.1 10*3/uL 0.0 - 0.5 10*3/uL [facility] Work Phone: Eosinophils/100 WBC (Bld) 1.5 % 1.0 - 6.0 % [facility] Work Phone: Erythrocyte distribution width (RBC) [Ratio] 14.6 % High 11.5 - 14.5 % [facility] Work Phone: Granulocytes/100 WBC (Bld) 80.8 % High 40.0 - 80.0 % [facility] Work Phone: Hematocrit (Bld) [Volume fraction] 33.2 % Low 40.0 - 52.0 % [facility] Work Phone: Hemoglobin (Bld) [Mass/Vol] 10.8 g/dL Low 13.0 - 18.0 g/dL [facility] Work Phone: [phone] Interpretation and review of laboratory results Abnormal [facility] Work Phone: [phone] Lymphocytes (Bld) [#/Vol] 0.9 10*3/uL Low 1.0 - 4.3 10*3/uL [facility] Work Phone: [phone] Lymphocytes/100 WBC (Bld) 10.5 % Low 20.0 - 40.0 % [facility] Work Phone: [phone] MCH (RBC) [Entitic mass] 33.0 pg 26.0 - 34.0 pg [facility] Work Phone: [phone] MCHC (RBC) [Mass/Vol] 32.6 % 32.0 - 36.0 % [facility] Work Phone: [phone] MCV (RBC) [Entitic vol] 101.2 fL High 80.0 - 98.0 fL [facility] Work Phone: [phone] Monocytes (Bld) [#/Vol] 0.5 10*3/uL 0.0 - 0.8 10*3/uL [facility] Work Phone: [phone] Monocytes/100 WBC (Bld) 6.5 % 2.0 - 10.0 % [facility] Work Phone: [phone] Platelet mean volume (Bld) [Entitic vol] 8.7 fL 7.4 - 10.4 fL [facility] Work Phone: [phone] Platelets (Bld) [#/Vol] 161 10*3/uL 140 - 440 10*3/uL [facility] Work Phone: [phone] RBC (Bld) [#/Vol] 3.28 10*6/uL Low 4.40 - 5.90 10*6/uL [facility] Work Phone: [phone] WBC (Bld) [#/Vol] 8.0 10*3/uL 3.6 - 10.7 10*3/uL [facility] Work Phone: [phone] Test Performed by [facility], [address] [place] [id number] [facility] Work Phone: [phone] CR Chest Portableon 09-18-19 CR Chest Portable Patient Name: AMAURY DAVIS Diagnostic Radiology ACCESSION EXAM DATE/TIME PROCEDURE ORDERING PROVIDER [id number] 09/17/2020 06:25 EDT CR Chest Portable [place] LIZ SARAH CPT code 90669 Reason For Exam (CR Chest Portable) Right [...] Transcribed Date and Time: 09/17/2020 7:58 Normal [facility] CULTURE BLOODon 09-17-2020 Microscopic examination of blood, culture CULTURE BLOOD --> Status: F No growth at 5 days. Normal [facility] Comment on above: Performed By: #### C /TBC #### [address] [address] CULTURE BLOOD (Two)on 2020 Microscopic examination of blood, culture CULTURE BLOOD (Two) --> Status: F No growth at 5 days. Normal [facility] Comment on above: Performed By: #### C /TBC #### [facility] [address] [place] [address] Hemogram w/ Autodiffon 09-17 Abs Baso Cnt 0.1 10*3/uL Normal 0.0-0.2 [facility] Comment on above: Performed By: #### B NP3, BMP3, MG3 #### [facility] [address] [place] [address] Abs Neutrophile Cnt 6.6 10*3/uL Normal 1.8-7.0 [facility] Comment on above: Performed By: #### B NP3, BMP3, MG3 #### [facility] [address] [place] [address] Basophils/100 WBC (Bld) 0.7 % Normal 0.0-2.0 S [facility] Comment on above: Performed By: #### B NP3, BMP3, MG3 #### [address] [place] [address] Eosinophils (Bld) [#/Vol] 0.1 10*3/uL Normal 0.0-0.5 [facility] Comment on above: Performed By: #### B NP3, BMP3, MG3 #### [address] [place] [address] Eosinophils/100 WBC (Bld) 1.5 % Normal 1.0-6.0 [facility] Comment on above: Performed By: #### B NP3, BMP3, MG3 #### [address] [place] [address] Granulocytes/100 WBC (Bld) 80.8 % High 40.0-80.0 [facility] Comment on above: Performed By: #### B NP3, BMP3, MG3 #### [address] [place] [address] Lymphocytes (Bld) [#/Vol] 0.9 10*3/uL Low 1.0-4.3 [facility] Comment on above: Performed By: #### B NP3, BMP3, MG3 #### [address] [address] Lymphocytes/100 WBC (Bld) 10.5 % Low 20.0-40.0 [facility] Comment on above: Performed By: #### B NP3, BMP3, MG3 #### [address] [place], [place] Monocytes (Bld) [#/Vol] 0.5 10*3/uL Normal 0.0-0.8 [facility] Comment on above: Performed By: #### B NP3, BMP3, MG3 #### [address] [address] [place], [place] Monocytes/100 WBC (Bld) 6.5 % Normal 2.0-10.0 [facility] Comment on above: Performed By: #### B NP3, BMP3, MG3 #### [address] [place], [place] Erythrocyte distribution width (RBC) [Ratio] 14.6 % High 11.5-14.5 [facility] Comment on above: Performed By: #### B NP3, BMP3, MG3 #### [address] Hematocrit (Bld) [Volume fraction] 33.2 % Low 40.0-52.0 [facility] Comment on above: Performed By: #### B NP3, BMP3, MG3 #### [address] [address] [place], [place] Hemoglobin (Bld) [Mass/Vol] 10.8 g/dL Low 13.0-18.0 [facility] Comment on above: Performed By: #### B NP3, BMP3, MG3 #### [address] [address] [place], [place] MCH (RBC) [Entitic mass] 33.0 pg Normal 26.0-34.0 [facility] Comment on above: Performed By: #### B NP3, BMP3, MG3 #### [address] [address] [place], [place] MCHC 32.6 % Normal 32.0-36.0 [facility] Comment on above: Performed By: #### B NP3, BMP3, MG3 #### [address] [address] [place], [place] MCV (RBC) [Entitic vol] 101.2 fL High 80.0-98.0 [facility] Comment on above: Performed By: #### B NP3, BMP3, MG3 #### [address] [address] Platelet mean volume (Bld) [Entitic vol] 8.7 fL Normal 7.4-10.4 [facility] Comment on above: Performed By: #### B NP3, BMP3, MG3 #### [address] [address] Platelets (Bld) [#/Vol] 161 10*3/uL Normal 140-440 [facility] Comment on above: Performed By: #### B NP3, BMP3, MG3 #### [address] RBC (Bld) [#/Vol] 3.28 10*6/uL Low 4.40-5.90 [facility] Comment on above: Performed By: #### B NP3, BMP3, MG3 #### [address] WBC (Bld) [#/Vol] 8.0 10*3/uL Normal 3.6-10.7 [facility] Comment on above: Performed By: #### B NP3, BMP3, MG3 #### [address] Otheron 09-17-2020 Blood Culture, Routine No growth at 5 days. [facility] Work Phone: Test Performed by [id number] [place] [address] Work Phone: XR CHEST PORTABLEon 09-18-19 Jax, [facility] Incoming Radiology Results From [facility] - 09/17/2020 8:00 AM EDT Patient Name: AMAURY BLANK Diagnostic Radiology ACCESSION EXAM DATE/TIME PROCEDURE ORDERING PROVIDER [id number] 09/17/2020 06:25 EDT CR Chest Portable [place] LIZ DUDLEY CPT code 44415 Reason For Exam (CR Chest Portable) Right [...] [facility] Work Phone: Patient Name: AMAURY DAVIS [facility]#: [id number] Diagnostic Radiology ACCESSION EXAM DATE/TIME PROCEDURE ORDERING PROVIDER [id number] 09/17/2020 06:25 EDT CR Chest Portable [place] LIZ SARAH CPT code 50231 Reason For Exam (CR Chest Portable) Right [...] RACHEL Transcribed Date and Time: 09/17/2020 7:58 [facility] Work Phone: Add On Lab Teston 09-16-2020 Sodium [Moles/Vol] Accepted [facility] Work Phone: Comment on above: Specimen available & acceptable for analysis. Test Performed by [facility], [address] [place] [address] [facility] Work Phone: Add on test from HISon 09-16 Add on test from HIS Accepted Normal [facility] Comment on above: Result Comment: Spec imen available & acceptable for analysis. Performed By: #### A DDON #### [address] [place] [address] Basic Metabolic Panelon 08-29 Anion gap [Moles/Vol] 5 mmol/L Normal 3-13 [facility] Comment on above: Performed By: #### B NP3, BMP3, MG3 #### [address] [place] [address] Calcium [Mass/Vol] 8.4 mg/dL Normal 8.4-10.4 [facility] Comment on above: Performed By: #### B NP3, BMP3, MG3 #### [address] [place] [address] CO2 [Moles/Vol] 18 mmol/L Low 22-30 [facility] Comment on above: Performed By: #### B NP3, BMP3, MG3 #### [address] [place] [address] Glucose [Mass/Vol] 132 mg/dL High 70-100 [facility] Comment on above: Performed By: #### B NP3, BMP3, MG3 #### [address] [place] [address] Urea nitrogen [Mass/Vol] 63 mg/dL High 7-20 [facility] Comment on above: Performed By: #### B NP3, BMP3, MG3 #### [address] [place] [address] Creatinine [Mass/Vol] 1.99 mg/dL High 0.52-1.25 [facility] Comment on above: Performed By: #### B NP3, BMP3, MG3 #### [facility] [address] [place] [address] GFR/1.73 sq M.predicted among blacks MDRD (S/P/Bld) [Vol rate/Area] 35.9 mL/min/{1.73_m2} Abnormal >60 [facility] Comment on above: Performed By: #### B NP3, BMP3, MG3 #### [facility] [address] [place] [address] GFR/1.73 sq M.predicted among non-blacks MDRD (S/P/Bld) [Vol rate/Area] 31.0 mL/min/{1.73_m2} Abnormal >60 [facility] Comment on above: Result Comment: KDIG O [...] By: #### B NP3, BMP3, MG3 #### [facility] [address] [place] [address] Chloride [Moles/Vol] 106 mmol/L Normal 98-107 [facility] Comment on above: Performed By: #### B NP3, BMP3, MG3 #### [facility] [address] [place] [address] Potassium [Moles/Vol] 4.1 mmol/L Normal 3.5-5.1 [facility] Comment on above: Performed By: #### B NP3, BMP3, MG3 #### [facility] [address] [place] [address] Sodium [Moles/Vol] 130 mmol/L Low 135-145 [facility] Comment on above: Performed By: #### B NP3, BMP3, MG3 #### [facility] [address] [place] [address] Anion gap [Moles/Vol] 5 mmol/L 3 - 13 mmol/L [facility] Work Phone: Calcium [Mass/Vol] 8.4 mg/dL 8.4 - 10. 4 mg/dL [facility] Work Phone: Chloride [Moles/Vol] 106 mmol/L 98 - 10 7 mmol/L [facility] Work Phone: CO2 [Moles/Vol] 18 mmol/L Low 22 - 30 mmol/L [facility] Work Phone: Creatinine [Mass/Vol] 1.99 mg/dL High 0.52 - 1.25 mg/dL [facility] Work Phone: EGFR IF NonAfrican Mexican 31.0 mL/min Abnormal >60 [facility] Work Phone: Comment on above: KDIGO guidelines [...] (S/P/Bld) [Vol rate/Area] 35.9 mL/min/{1.73_m2} Abnormal >60 [facility] Work Phone: Glucose [Mass/Vol] 132 mg/dL High 70 - 100 mg/dL [facility] Work Phone: Potassium [Moles/Vol] 4.1 mmol/L 3.5 - 5.1 mmol/L [facility] Work Phone: Sodium [Moles/Vol] 130 mmol/L Low 135 - 145 mmol/L [facility] Work Phone: Urea nitrogen [Mass/Vol] 63 mg/dL High 7 - 20 mg/dL [facility] Work Phone: CR Chest Portableon 09-17-19 CR Chest Portable Patient Name: AMAURY DAVIS Diagnostic Radiology ACCESSION EXAM DATE/TIME PROCEDURE ORDERING PROVIDER [id number] 09/16/2020 06:32 EDT CR Chest Portable [place] LIZ SARAH CPT code 32358 Reason For Exam (CR Chest Portable) Right [...] Transcribed Date and Time: 09/16/2020 8:19 Normal [facility] CULT/STAIN - AEROBIC AND RACHEL EROBICon 09-16-2020 [...] 0.5 S Penicillin-G(OSCAR) <= 0.06 S Normal [facility] Comment on above: Performed By: #### C /TBC #### [facility] [address] [place] [phone] CYTOLOGY, NON-GYNon 09-17-19 Cytology report Cyto stain.thin prep Doc (Cvx/Vag) SEE BELOW [facility] Work Phone: 1 [facility] [phone] PATHOLOGY AND [facility] LABORATORY MEDICINE [address] [facility]. [place], [place] [id number] FINAL MEDICAL CYTOLOGY REPORT NAME: AMAURY BLANK : 1940 80 [address] Deep [place] NO.: [id number] LOCATION: [facility] 6 H TOWER INPT PROCEDURE 09/13/2020 [...] characteristics determined by the clinical laboratories of [facility]. They have not been cleared by the [...] negativity on decalcified specimens. Case reviewed at [address] [place] [address]. DEPARTMENT OF PATHOLOGY AND LABORATORY MEDICINE [place], [place] [address] [facility] Work Phone: Culture, Anaerobic and Aerob icon 09-16-2020 Aerobic Culture Many [facility] Work Phone: Aerobic Culture Streptococcus intermedius Abnormal [facility] Work Phone: Anaerobic Culture Negative Abnormal [facility] Work Phone: Anaerobic Culture Moderate [facility] Work Phone: INR Coag (Bld) [Relative time] Many polymorphonuclear cells/lpf. Many gram positive cocci in pairs and chains. Moderate gram positive bacilli. Moderate gram negative bacilli. [facility] Work Phone: Interpretation and review of laboratory results Abnormal [facility] Work Phone: Test Performed by [facility], [address] [place] [address] [facility] Work Phone: EKG 12 Leadon 09-16-2020 Jax, [facility] Incoming Cardiology Results From [facility] - 09/16/2020 10:57 AM EDT [facility] Test Date: 2020-09-16 Pat Name: Amaury Blank Department: 1AH6 Room: 24 Gender: M Forensic Science Examiner: [facility] : 1940 Requested By: MARIA ELENA KAMINSKI Order Number: [id number] Reading MD: Adamaris Johns Measurements Intervals [place] Rate: 77 P: [place]: QRS: -25 QRSD: 122 T: 82 QT: 414 QTc: 469 Interpretive Statements Atrial flutter with predominant 3:1 AV block Nonspecific intraventricular conduction delay Anteroseptal infarct, age indeterminate Electronically Signed On 09-16-2020 10:56:23 EDT by Adamaris Johns [facility] Work Phone: [facility] Test Date: 2020-09-16 Pat Name: Amaury Blank Department: 1AH6 Room: 6124 Gender: M Forensic Science Examiner: ANNALISE : 1940 Requested By: MARIAE LENA KAMINSKI Order Number: [id number] Reading MD: Adamaris Johns Measurements Intervals [place] Rate: 77 P: [place]: QRS: -25 QRSD: 122 T: 82 QT: 414 QTc: 469 Interpretive Statements Atrial flutter with predominant 3:1 AV block Nonspecific intraventricular conduction delay Anteroseptal infarct, age indeterminate Electronically Signed On 09-16-2020 10:56:23 EDT by Adamaris Johns [facility] Work Phone: HISTOPLASMA ANTIGEN, URINEon 09-16-2020 HISTOPLASMA AG URINE DETECTION Not Detected ng/mL [facility] Work Phone: Interpretation Not Detected Not Detected NA [facility] Work Phone: Comment on above: INTERPRETIVE DATA: H [...] developed and its performance characteristics determined by [employer]. It has not been cleared or approved by the [place] Food and Drug Administration. This test was performed in a CLIA certified laboratory and is intended for clinical purposes. Performed By: [facility] [address] [place] [address] [employer] Teacher: Alice Fraga MD Histoplasma Ag, Urineon 08-29 Histoplasma Ag,Urine Not detected Normal [facility] Comment on above: Performed By: #### B NP3, BMP3, MG3 #### [address] [address] Interpretation Not detected Normal Not Detected [facility] Comment on above: Result Comment: INTE RPRETIVE [...] developed and its performance characteristics determined by [employer]. It has not been cleared or approved by the [place] Food and Drug Administration. This test was performed in a CLIA certified laboratory and is intended for clinical purposes. Performed By: [facility] [address] [place] [address] [employer] Teacher: Alice Fraga MD Performed By: #### B NP3, BMP3, MG3 #### [address] [address] Magnesiumon 09-16-2020 Magnesium [Mass/Vol] 1.7 mg/dL Normal 1.6-2.3 [facility] Comment on above: Performed By: #### B NP3, BMP3, MG3 #### [address] [address] Magnesium [Mass/Vol] 1.7 mg/dL 1.6 - 2 .3 mg/dL [facility] Work Phone: Test Performed by [facility], [address] [place] [address] [facility] Work Phone: Otheron 09-16-2020 Interpretation and review of laboratory results Abnormal [facility] Work Phone: Test Performed by [facility], [address] [place] [address] [facility] Work Phone: Protein, Totalon 09-16-2020 Protein [Mass/Vol] 4.5 g/dL Low 6.3 - 8.2 g/dL [facility] Work Phone: Total Proteinon 09-16-2020 Protein [Mass/Vol] 4.5 g/dL Low 6.3-8.2 [facility] Comment on above: Performed By: #### B NP3, BMP3, MG3 #### [facility] [address] [address] XR CHEST PORTABLEon 09-17-19 Patient Name: AMAURY DAVIS Diagnostic Radiology ACCESSION EXAM DATE/TIME PROCEDURE ORDERING PROVIDER [id number] 09/16/2020 06:32 EDT CR Chest Portable [place] LIZ SARAH CPT code 95806 Reason For Exam (CR Chest Portable) Right [...] Time: 09/16/2020 8:19 [facility] Work Phone: [facility]/16/[facility] 8:21 AM EDT [facility]: [id number]iology ACCESSION EXAM DATE/TIME PROCEDURE ORDERING PROVIDER [id number] 09/16/2020 06:32 EDT CR Chest Portable [place] LIZ SARAH CPT code 26268 Reason For Exam (CR Chest Portable) Right [...] RACHEL Transcribed Date and Time: 09/16/2020 8:19 [facility] Work Phone: BODY FLUID CELL COUNT WITH D IFFERENTIALon 09-15-2020 Nucl Cell, Fluid 18087 {cells}/uL [facility] Work Phone: RED BLOOD CELLS, BODY FLUID 363234 {RBC}/uL [facility] Work Phone: Sodium [Moles/Vol] chest tube [facility] Work Phone: Test Performed by [facility], [address] [place] [address] [facility] Work Phone: Basic Metabolic Panelon 08-28 Anion gap [Moles/Vol] 9 mmol/L Normal 3-13 [facility] Comment on above: Performed By: #### B NP3, BMP3, MG3 #### [address] Calcium [Mass/Vol] 8.3 mg/dL Low 8.4-10.4 [facility] Comment on above: Performed By: #### B NP3, BMP3, MG3 #### [facility] [address] [place], [place] CO2 [Moles/Vol] 19 mmol/L Low 22-30 [facility] Comment on above: Performed By: #### B NP3, BMP3, MG3 #### [facility] [address] [place], [place] Creatinine [Mass/Vol] 2.27 mg/dL High 0.52-1.25 [facility] Comment on above: Performed By: #### B NP3, BMP3, MG3 #### [facility] [address] [place], [place] GFR/1.73 sq M.predicted among blacks MDRD (S/P/Bld) [Vol rate/Area] 30.6 mL/min/{1.73_m2} Abnormal >60 [facility] Comment on above: Performed By: #### B NP3, BMP3, MG3 #### [facility] [address] [place], [place] GFR/1.73 sq M.predicted among non-blacks MDRD (S/P/Bld) [Vol rate/Area] 26.4 mL/min/{1.73_m2} Abnormal >60 [facility] Comment on above: Result Comment: KDIG O [...] By: #### B NP3, BMP3, MG3 #### [facility] [address] [place] [address] Glucose [Mass/Vol] 105 mg/dL High 70-100 [facility] Comment on above: Performed By: #### B NP3, BMP3, MG3 #### [facility] [address] [place] [address] Urea nitrogen [Mass/Vol] 68 mg/dL High 7-20 [facility] Comment on above: Performed By: #### B NP3, BMP3, MG3 #### [place] [address] [place] [address] Chloride [Moles/Vol] 106 mmol/L Normal 98-107 [facility] Comment on above: Performed By: #### B NP3, BMP3, MG3 #### [address] [place] [address] Potassium [Moles/Vol] 4.0 mmol/L Normal 3.5-5.1 [facility] Comment on above: Performed By: #### B NP3, BMP3, MG3 #### [address] [address] [place] [address] Sodium [Moles/Vol] 134 mmol/L Low 135-145 [facility] Comment on above: Performed By: #### B NP3, BMP3, MG3 #### [address] [place] [address] Anion gap [Moles/Vol] 9 mmol/L 3 - 13 mmol/L [facility] Work Phone: Calcium [Mass/Vol] 8.3 mg/dL Low 8.4 - 10. 4 mg/dL [facility] Work Phone: Chloride [Moles/Vol] 106 mmol/L 98 - 10 7 mmol/L [facility] Work Phone: CO2 [Moles/Vol] 19 mmol/L Low 22 - 30 mmol/L [facility] Work Phone: Creatinine [Mass/Vol] 2.27 mg/dL High 0.52 - 1.25 mg/dL [facility] Work Phone: EGFR IF NonAfrican Mexican 26.4 mL/min Abnormal >60 [facility] Work Phone: [...] 105 mg/dL High 70 - 100 mg/dL [facility] Work Phone: Interpretation and review of laboratory results Abnormal [facility] Work Phone: Potassium [Moles/Vol] 4.0 mmol/L 3.5 - 5.1 mmol/L [facility] Work Phone: Sodium [Moles/Vol] 134 mmol/L Low 135 - 145 mmol/L [facility] Work Phone: Urea nitrogen [Mass/Vol] 68 mg/dL High 7 - 20 mg/dL [facility] Work Phone: Test Performed by [facility], [address] [place] [address] [facility] Work Phone: CR Chest Portableon 09-16-19 21 CR Chest Portable Patient Name: AMAURY DAVIS Diagnostic Radiology ACCESSION EXAM DATE/TIME PROCEDURE ORDERING PROVIDER [id number] 09/15/2020 06:44 EDT CR Chest Portable [place] LIZ KYLAH CPT code 96119 Reason For Exam (CR Chest Portable) Right [...] Transcribed Date and Time: 09/15/2020 7:13 Normal [facility] Cell Count,Body Fluidon 08-28 Nucleated Cells 89128 {cells}/uL Normal [facility] Comment on above: Performed By: #### B NP3, BMP3, MG3 #### [facility] [address] [place] [address] RBC Count Body Fld 394043 {RBC}/uL Normal [facility] Comment on above: Performed By: #### B NP3, BMP3, MG3 #### [facility] [address] [place] [address] Fluid Type chest tube Normal [facility] Comment on above: Performed By: #### B NP3, BMP3, MG3 #### [facility] [address] [place] [address] Differential, Body Fluidon 0 09-15-2020 Eosinophils/100 WBC (Bld) 1 % [facility] Work Phone: Lymphocytes/100 WBC (Bld) 1 % [facility] Work Phone: Macrophage count 1 % [facility] Work Phone: Monocytes/100 WBC (Bld) 1 % [facility] Work Phone: Neutrophils/100 WBC (Bld) 96 % [facility] Work Phone: Sodium [Moles/Vol] 100 mmol/L [facility] Work Phone: Test Performed by [facility], [address] [place] [address] [facility] Work Phone: Differential,Body Fluidson 0 09-15-2020 Eosinophils/100 WBC (Bld) 1 % Normal [facility] Comment on above: Performed By: #### B NP3, BMP3, MG3 #### [address] [address] [place] [address] Lymphocytes/100 WBC (Bld) 1 % Normal [facility] Comment on above: Performed By: #### B NP3, BMP3, MG3 #### [facility] [place] [address] Macrophages 1 % Normal [facility] Comment on above: Performed By: #### B NP3, BMP3, MG3 #### [address] [address] [place] [address] Monocytes/100 WBC (Bld) 1 % Normal [facility] Comment on above: Performed By: #### B NP3, BMP3, MG3 #### [facility] [place] [address] Neutrophils/100 WBC (Bld) 96 % Normal [facility] Comment on above: Performed By: #### B NP3, BMP3, MG3 #### [facility] [place] [address] Cells Counted for Diff 100 Normal [facility] Comment on above: Performed By: #### B NP3, BMP3, MG3 #### [address] [address] [place] [address] Glucose, Body Fluidon 2020 Glucose, Body Fluid < 20 Normal No Range [facility] Comment on above: Performed By: #### B NP3, BMP3, MG3 #### [facility] [place] Glucose, Body Fluid <20 No Range mg/dL [facility] Work Phone: Test Performed by [facility], [address] [place] [address] [facility] Work Phone: Hemoglobin AND Hematocriton 09-15-2020 Hematocrit (Bld) [Volume fraction] 32.9 % Low 40.0-52.0 [facility] Comment on above: Performed By: #### B MP3, HEMDF #### [facility] [employer] [facility] [address] [place], [place] Hemoglobin (Bld) [Mass/Vol] 10.7 g/dL Low 13.0-18.0 [facility] Comment on above: Performed By: #### B MP3, HEMDF #### [facility] [address] [place] Hemoglobin and Hematocrit, B loodon 09-15-2020 Hematocrit (Bld) [Volume fraction] 32.9 % Low 40.0 - 52.0 % [facility] Work Phone: Hemoglobin (Bld) [Mass/Vol] 10.7 g/dL Low 13.0 - 18.0 g/dL [facility] Work Phone: Interpretation and review of laboratory results Abnormal [facility] Work Phone: Test Performed by [facility], [facility] [place] [address] [facility] Work Phone: LDH, Body Fluidon 09-15-2020 LDH, Body Fluid 2229 U/L Normal No Range [facility] Comment on above: Performed By: #### B NP3, BMP3, MG3 #### [facility] [address] [place] [address] Fluid Type Acites Normal [facility] Comment on above: Performed By: #### B NP3, BMP3, MG3 #### [facility] [employer] [place] [place] [address] Lactate Dehydrogenase, Body Fluidon 09-15-2020 LD, Fluid 2229 U/L No Range [facility] Work Phone: Sodium [Moles/Vol] Acites [facility] Work Phone: Test Performed by [facility], [address] [place], [place] [address] [place] [address] [facility] Work Phone: XR CHEST PORTABLEon 09-16-19 [facility] In[facility] Rad[facility] Results From [facility] - 09/15/2020 7:17 AM EDT Patient Name: AMAURY BLANK Diagnostic Radiology ACCESSION EXAM DATE/TIME PROCEDURE ORDERING PROVIDER [id number] 09/15/2020 06:44 EDT CR Chest Portable [place] LIZ, KYLA[place] CPT code 91492 Reason For Exam (CR Chest Portable) Right [...] AHMAD Transcribed Date and Time: 09/15/2020 7:13 [facility] Work Phone: Patient Name: AMAURY HOLMAN Diagnostic Radiology ACCESSION EXAM DATE/TIME PROCEDURE ORDERING PROVIDER [id number] 09/15/2020 06:44 EDT CR Chest Portable [place] LIZ, KYLA[place] CPT code 67232 Reason For Exam (CR Chest Portable) Right [...] AHMAD Transcribed Date and Time: 09/15/2020 7:13 [facility] Work Phone: Basic Metabolic Panelon 08-28 Calcium [Mass/Vol] 8.5 mg/dL Normal 8.4-10.4 [facility] Comment on above: Performed By: #### C /TBC #### [facility] [address] [place], [place] Anion gap [Moles/Vol] 8 mmol/L Normal -13 [facility] Comment on above: Performed By: #### C /TBC #### [facility] [address] [place], [place] CO2 [Moles/Vol] 20 mmol/L Low 22-30 [facility] Comment on above: Performed By: #### C /TBC #### [facility] [address] [place], [place] Creatinine [Mass/Vol] 2.24 mg/dL High 0.52-1.25 [facility] Comment on above: Performed By: #### C /TBC #### [facility] [address] [place], [place] GFR/1.73 sq M.predicted among blacks MDRD (S/P/Bld) [Vol rate/Area] 31.1 mL/min/{1.73_m2} Abnormal >60 [facility] Comment on above: Performed By: #### C /TBC #### [address] [place] [place] [address] GFR/1.73 sq M.predicted among non-blacks MDRD (S/P/Bld) [Vol rate/Area] 26.9 mL/min/{1.73_m2} Abnormal >60 [facility] Comment on above: Result Comment: KDIG O [...] secretion. Performed By: #### C /TBC #### [place] [address] [address] [place], [place] Glucose [Mass/Vol] 129 mg/dL High 70-100 [facility] Comment on above: Performed By: #### C /TBC #### [address] [place] [address] Urea nitrogen [Mass/Vol] 70 mg/dL High 7-20 [facility] Comment on above: Performed By: #### C /TBC #### [address] [address] [place] [address] Chloride [Moles/Vol] 110 mmol/L High 98-107 [facility] Comment on above: Performed By: #### C /TBC #### [address] [place] [address] Potassium [Moles/Vol] 3.7 mmol/L Normal 3.5-5.1 [facility] Comment on above: Performed By: #### C /TBC #### [facility] [address] [place] [address] Sodium [Moles/Vol] 138 mmol/L Normal 135-145 [facility] Comment on above: Performed By: #### C /TBC #### [facility] [address] [place] [address] Anion gap [Moles/Vol] 8 mmol/L 3 - 13 mmol/L [facility] Work Phone: Calcium [Mass/Vol] 8.5 mg/dL 8.4 - 10. 4 mg/dL [facility] Work Phone: Chloride [Moles/Vol] 110 mmol/L High 98 - 10 7 mmol/L [facility] Work Phone: CO2 [Moles/Vol] 20 mmol/L Low 22 - 30 mmol/L [facility] Work Phone: Creatinine [Mass/Vol] 2.24 mg/dL High 0.52 - 1.25 mg/dL [facility] Work Phone: EGFR IF NonAfrican Mexican 26.9 mL/min Abnormal >60 [facility] Work Phone: Comment on above: KDIGO guidelines [...] mg/dL [facility] Work Phone: Test Performed by [facility], [address] [place] [address] [facility] Work Phone: CR Chest Portableon 09-15-19 CR Chest Portable Patient [facility]: [id number] Diagnostic Radiology ACCESSION EXAM DATE/TIME PROCEDURE ORDERING PROVIDER [id number] 09/14/2020 06:53 EDT CR Chest Portable [place] LIZ SARAH CPT code 71038 Reason For Exam (CR Chest Portable) Right [...] JOHN Transcribed Date and Time: 09/14/2020 7:08 [facility] XR CHEST PORTABLEon 09-15-19 Patient Name: AMAURY DAVIS [facility]#: [id number] Diagnostic Radiology ACCESSION EXAM DATE/TIME PROCEDURE ORDERING PROVIDER [id number] 09/14/2020 06:53 EDT CR Chest Portable [place] LIZ SARAH CPT code 82728 Reason For Exam (CR Chest Portable) Right [...] JOHN Transcribed Date and Time: 09/14/2020 7:08 [facility] Work Phone: Jax, [facility] Incoming Radiology Results From [facility] - 09/14/2020 7:13 AM EDT Patient Name: AMAURY BLANK [facility]#: [id number] Diagnostic Radiology ACCESSION EXAM DATE/TIME PROCEDURE ORDERING PROVIDER [id number] 09/14/2020 06:53 EDT CR Chest Portable [place] LIZ KYLAH CPT code 50376 Reason For Exam (CR Chest Portable) Right [...] JOHN Transcribed Date and Time: 09/14/2020 7:08 [facility] Work Phone: Basic Metabolic Panelon 08-28 Anion gap [Moles/Vol] 7 mmol/L Normal 3-13 [facility] Comment on above: Performed By: #### B NP3, BMP3, MG3 #### [facility] [address] [address] Calcium [Mass/Vol] 8.3 mg/dL Low 8.4-10.4 [facility] Comment on above: Performed By: #### B NP3, BMP3, MG3 #### [facility] [employer] [address] [place] [address] CO2 [Moles/Vol] 21 mmol/L Low 22-30 [facility] Comment on above: Performed By: #### B NP3, BMP3, MG3 #### [facility] [address] [place], [place] Glucose [Mass/Vol] 139 mg/dL High 70-100 [facility] Comment on above: Performed By: #### B NP3, BMP3, MG3 #### [facility] [address] [place], [place] Urea nitrogen [Mass/Vol] 79 mg/dL High 7-20 [facility] Comment on above: Performed By: #### B NP3, BMP3, MG3 #### [place] [address] [address] [place], [place] Creatinine [Mass/Vol] 2.35 mg/dL High 0.52-1.25 [facility] Comment on above: Performed By: #### B NP3, BMP3, MG3 #### [place] [address] [address] [place], [place] GFR/1.73 sq M.predicted among blacks MDRD (S/P/Bld) [Vol rate/Area] 29.4 mL/min/{1.73_m2} Abnormal >60 [facility] Comment on above: Performed By: #### B NP3, BMP3, MG3 #### [place] [address] [address] [place], [place] GFR/1.73 sq M.predicted among non-blacks MDRD (S/P/Bld) [Vol rate/Area] 25.3 mL/min/{1.73_m2} Abnormal >60 [facility] Comment on above: Result Comment: KDIG O [...] By: #### B NP3, BMP3, MG3 #### [facility] [address] [place], [place] Potassium [Moles/Vol] 3.2 mmol/L Low 3.5-5.1 [facility] Comment on above: Performed By: #### B NP3, BMP3, MG3 #### [facility] [address] [place], [place] Sodium [Moles/Vol] 139 mmol/L Normal 135-145 [facility] Comment on above: Performed By: #### B NP3, BMP3, MG3 #### [facility] [address] [place], [place] Anion gap [Moles/Vol] 6 mmol/L Normal 3-13 [facility] Comment on above: Performed By: #### B NP3, BMP3, MG3 #### [facility] [address] [place], [place] Calcium [Mass/Vol] 8.3 mg/dL Low 8.4-10.4 [facility] Comment on above: Performed By: #### B NP3, BMP3, MG3 #### [facility] [address] [place], [place] Chloride [Moles/Vol] 110 mmol/L High 98-107 [facility] Comment on above: Performed By: #### B NP3, BMP3, MG3 #### [facility] [address] [place], [place] CO2 [Moles/Vol] 21 mmol/L Low 22-30 [facility] Comment on above: Performed By: #### B NP3, BMP3, MG3 #### [facility] [address] [place], [place] Glucose [Mass/Vol] 136 mg/dL High 70-100 [facility] Comment on above: Performed By: #### B NP3, BMP3, MG3 #### [facility] [address] [place] [address] Urea nitrogen [Mass/Vol] 76 mg/dL High 7-20 [facility] Comment on above: Performed By: #### B NP3, BMP3, MG3 #### [facility] [address] [place] [address] Creatinine [Mass/Vol] 2.32 mg/dL High 0.52-1.25 [facility] Comment on above: Performed By: #### B NP3, BMP3, MG3 #### [facility] [address] [place] [address] GFR/1.73 sq M.predicted among blacks MDRD (S/P/Bld) [Vol rate/Area] 29.8 mL/min/{1.73_m2} Abnormal >60 [facility] Comment on above: Performed By: #### B NP3, BMP3, MG3 #### [facility] [address] [place] [address] GFR/1.73 sq M.predicted among non-blacks MDRD (S/P/Bld) [Vol rate/Area] 25.7 mL/min/{1.73_m2} Abnormal >60 [facility] Comment on above: Result Comment: KDIG O [...] By: #### B NP3, BMP3, MG3 #### [facility] [address] [place] [address] Chloride [Moles/Vol] 108 mmol/L High 98-107 [facility] Comment on above: Performed By: #### B NP3, BMP3, MG3 #### [facility] [address] [place] [address] Potassium [Moles/Vol] 3.2 mmol/L Low 3.5-5.1 [facility] Comment on above: Performed By: #### B NP3, BMP3, MG3 #### [facility] [address] [place] [address] Sodium [Moles/Vol] 135 mmol/L Normal 135-145 [facility] Comment on above: Performed By: #### B NP3, BMP3, MG3 #### [facility] [address] [place] [address] Anion gap [Moles/Vol] 7 mmol/L 3 - 13 mmol/L [facility] Work Phone: Anion gap [Moles/Vol] 6 mmol/L 3 - 13 mmol/L [facility] Work Phone: Chloride [Moles/Vol] 110 mmol/L High 98 - 10 7 mmol/L [facility] Work Phone: Chloride [Moles/Vol] 108 mmol/L High 98 - 10 7 mmol/L [facility] Work Phone: Creatinine [Mass/Vol] 2.35 mg/dL High 0.52 - 1.25 mg/dL [facility] Work Phone: Creatinine [Mass/Vol] 2.32 mg/dL High 0.52 - 1.25 mg/dL [facility] Work Phone: EGFR IF NonAfrican Mexican 25.7 mL/min Abnormal >60 [facility] Work Phone: Comment on above: KDIGO guidelines [...] renal tubular creatinine secretion. EGFR IF NonAfrican Mexican 25.3 mL/min Abnormal >60 [facility] Work Phone: Comment on above: KDIGO guidelines [...] (S/P/Bld) [Vol rate/Area] 29.8 mL/min/{1.73_m2} Abnormal >60 [facility] Work Phone: GFR/1.73 sq M predicted among blacks MDRD (S/P/Bld) [Vol rate/Area] 29.4 mL/min/{1.73_m2} Abnormal >60 [facility] Work Phone: Glucose [Mass/Vol] 139 mg/dL High 70 - 100 mg/dL [facility] Work Phone: Glucose [Mass/Vol] 136 mg/dL High 70 - 100 mg/dL [facility] Work Phone: Sodium [Moles/Vol] 139 mmol/L 135 - 145 mmol/L [facility] Work Phone: [phone] Sodium [Moles/Vol] 135 mmol/L 135 - 145 mmol/L [facility] Work Phone: [phone] Urea nitrogen [Mass/Vol] 76 mg/dL High 7 - 20 mg/dL [facility] Work Phone: [phone] Urea nitrogen [Mass/Vol] 79 mg/dL High 7 - 20 mg/dL [facility] Work Phone: [phone] C-Reactive Proteinon 021 CRP [Mass/Vol] 148.3 mg/L High 0.0-6.0 [facility] [employer] Comment on above: Result Comment: . Performed By: #### B NP3, BMP3, MG3 #### [facility] [address] [place] [phone] CRP [Mass/Vol] 148.3 mg/L High 0.0 - 6.0 mg/L [facility] Work Phone: [phone] Comment on above: . Interpretation and review of laboratory results Abnormal [facility] Work Phone: [phone] Test Performed by [facility] [employer], [address] [place] [address] [facility] Work Phone: CBC Auto Differentialon 08-28 Absolute Baso # 0.0 10*3/uL 0.0 - 0.2 10*3/uL [facility] Work Phone: [phone] Absolute Neut # 4.9 10*3/uL 1.8 - 7.0 10*3/uL [facility] Work Phone: [phone] Basophils/100 WBC (Bld) 0.1 % 0.0 - 2.0 % [facility] Work Phone: [phone] Eosinophils (Bld) [#/Vol] 0.0 10*3/uL 0.0 - 0.5 10*3/uL [facility] Work Phone: Eosinophils/100 WBC (Bld) 0.1 % Low 1.0 - 6.0 % [facility] Work Phone: [phone] Erythrocyte distribution width (RBC) [Ratio] 14.4 % 11.5 - 14.5 % [facility] Work Phone: [phone] Granulocytes/100 WBC (Bld) 79.8 % 40.0 - 80.0 % [facility] Work Phone: [phone] Hematocrit (Bld) [Volume fraction] 30.0 % Low 40.0 - 52.0 % [facility] Work Phone: [phone] Hemoglobin (Bld) [Mass/Vol] 9.9 g/dL Low 13.0 - 18.0 g/dL [facility] Work Phone: [phone] Interpretation and review of laboratory results Abnormal [facility] Work Phone: [phone] Lymphocytes (Bld) [#/Vol] 0.6 10*3/uL Low 1.0 - 4.3 10*3/uL [facility] Work Phone: [phone] Lymphocytes/100 WBC (Bld) 9.4 % Low 20.0 - 40.0 % [facility] Phone: [phone] MCH (RBC) [Entitic mass] 33.4 pg 26.0 - 34.0 pg [facility] Work Phone: [phone] MCHC (RBC) [Mass/Vol] 33.0 % 32.0 - 36.0 % [facility] Work Phone: [phone] MCV (RBC) [Entitic vol] 101.1 fL High 80.0 - 98.0 fL [facility] Work Phone: [phone] Monocytes (Bld) [#/Vol] 0.6 10*3/uL 0.0 - 0.8 10*3/uL [facility] Work Phone: [phone] Monocytes/100 WBC (Bld) 10.6 % High 2.0 - 10.0 % [facility] Work Phone: [phone] Platelet mean volume (Bld) [Entitic vol] 9.2 fL 7.4 - 10.4 fL [facility] Work Phone: [phone] Platelets (Bld) [#/Vol] 131 10*3/uL Low 140 - 440 10*3/uL [facility] Work Phone: [phone] RBC (Bld) [#/Vol] 2.97 10*6/uL Low 4.40 - 5.90 10*6/uL [facility] Work Phone: WBC (Bld) [#/Vol] 6.1 10*3/uL 3.6 - 10.7 10*3/uL [facility] Work Phone: Test Performed by [facility], [address] [place] [id number] [place] [address] Work Phone: CR Chest Portableon 09-14-19 21 CR Chest Portable Patient Name: AMAURY DAVIS Diagnostic Radiology ACCESSION EXAM DATE/TIME PROCEDURE ORDERING PROVIDER [id number] 09/13/2020 06:54 EDT CR Chest Portable Chadwick LIZ SARAH CPT code 27740 Reason For Exam (CR Chest Portable) Right [...] Transcribed Date and Time: 09/13/2020 7:24 Normal [facility] CT CHEST WO CONTRASTon 09-13 Jax, [facility] Incoming Radiology Results From [facility] - 09/13/2020 2:53 PM EDT Patient Name: AMAURY BLANK Computed Tomography ACCESSION EXAM DATE/TIME PROCEDURE ORDERING PROVIDER [id number] 09/13/2020 13:[address] Thorax w/o Contrast Chadwick LIZ SARAH CPT code 92271 Reason For Exam (CT Thorax w/o Contrast) [...] [facility] Work Phone: [facility]: [id number] Tomography ACCESSION EXAM DATE/TIME PROCEDURE ORDERING PROVIDER [id number] 09/13/2020 13:[address] Thorax w/o Contrast Chadwick LIZ SARAH CPT code 68752 Reason For Exam (CT Thorax w/o Contrast) [...] Chest w/o Contrast Patient [facility]: [id number] Computed Tomography ACCESSION EXAM DATE/TIME PROCEDURE ORDERING PROVIDER [id number] 09/13/2020 13:[address] Thorax w/o Contrast Chadwick LIZ SARAH CPT code 41074 Reason For Exam (CT Thorax w/o Contrast) [...] Transcribed Date and Time: 09/13/2020 2:46 Normal [facility] Folateon 09-13-2020 Folate 15.1 ng/mL Normal 2.8-20.0 [facility] Comment on above: Performed By: #### B MP3, HEMDF #### [facility] [employer] [address] [place] [phone] Folate 15.1 ng/mL 2.8 - 20.0 ng/mL [facility] Work Phone: Hemoglobin A1Con 09-13-2020 Glucose [Mass/Vol] 114 mg/dL Normal [facility] Comment on above: Performed By: #### B NP3, BMP3, MG3 #### [address] [phone] HbA1c (Bld) [Mass fraction] 5.6 % Normal [facility] Comment on above: Result Comment: Norm al less than 5.7% Prediabetes 5.7% to 6.4% Diabetes 6.5% or higher --HgbA1C levels may not be accurate in patients who have renal disease, received recent blood transfusions, are anemic, or who have dyshemoglobinemia. Performed By: #### B NP3, BMP3, MG3 #### [address] [address] eAG 114 mg/dL [facility] Work Phone: HbA1c (Bld) [Mass fraction] 5.6 % [facility] Work Phone: Comment on above: Normal less than 5.7 % Prediabetes 5.7% to 6.4% Diabetes 6.5% or higher --HgbA1C levels may not be accurate in patients who have renal disease, received recent blood transfusions, are anemic, or who have dyshemoglobinemia. Test Performed by [facility], [address] [place] [id number] [facility] Work Phone: Hemogram w/ Autodiffon 09-13 Abs Baso Cnt 0.0 10*3/uL Normal 0.0-0.2 [facility] Comment on above: Performed By: #### B NP3, BMP3, MG3 #### [address] [place] [address] [place], [place] Abs Neutrophile Cnt 4.9 10*3/uL Normal 1.8-7.0 [facility] Comment on above: Performed By: #### B NP3, BMP3, MG3 #### [address] [address] Basophils/100 WBC (Bld) 0.1 % Normal 0.0-2.0 [facility] Comment on above: Performed By: #### B NP3, BMP3, MG3 #### [address] [address] [place] [place], [place] Eosinophils (Bld) [#/Vol] 0.0 10*3/uL Normal 0.0-0.5 [facility] Comment on above: Performed By: #### B NP3, BMP3, MG3 #### [address] [address] [place], [place] Eosinophils/100 WBC (Bld) 0.1 % Low 1.0-6.0 [facility] Comment on above: Performed By: #### B NP3, BMP3, MG3 #### [address] [address] [place], [place] Erythrocyte distribution width (RBC) [Ratio] 14.4 % Normal 11.5-14.5 [facility] Comment on above: Performed By: #### B NP3, BMP3, MG3 #### [address] [address] [place], [place] Granulocytes/100 WBC (Bld) 79.8 % Normal 40.0-80.0 [facility] Comment on above: Performed By: #### B NP3, BMP3, MG3 #### [address] [address] [place], [place] Hematocrit (Bld) [Volume fraction] 30.0 % Low 40.0-52.0 [facility] Comment on above: Performed By: #### B NP3, BMP3, MG3 #### [address] [place] [address] [place], [place] Hemoglobin (Bld) [Mass/Vol] 9.9 g/dL Low 13.0-18.0 [facility] Comment on above: Performed By: #### B NP3, BMP3, MG3 #### [address] [place] [address] [place], [place] Lymphocytes (Bld) [#/Vol] 0.6 10*3/uL Low 1.0-4.3 [facility] Comment on above: Performed By: #### B NP3, BMP3, MG3 #### [address] [place] [address] [place], [place] Lymphocytes/100 WBC (Bld) 9.4 % Low 20.0-40.0 [facility] Comment on above: Performed By: #### B NP3, BMP3, MG3 #### [place] [address] [place], [place] MCH (RBC) [Entitic mass] 33.4 pg Normal 26.0-34.0 [facility] Comment on above: Performed By: #### B NP3, BMP3, MG3 #### [place] [address] [place], [place] MCHC 33.0 % Normal 32.0-36.0 [facility] Comment on above: Performed By: #### B NP3, BMP3, MG3 #### [place] [address] [place], [place] MCV (RBC) [Entitic vol] 101.1 fL High 80.0-98.0 [facility] Comment on above: Performed By: #### B NP3, BMP3, MG3 #### [place] [address] [place], [place] Monocytes (Bld) [#/Vol] 0.6 10*3/uL Normal 0.0-0.8 [facility] Comment on above: Performed By: #### B NP3, BMP3, MG3 #### [place] [address] [place], [place] Monocytes/100 WBC (Bld) 10.6 % High 2.0-10.0 [facility] Comment on above: Performed By: #### B NP3, BMP3, MG3 #### [address] [place] [address] [place], [place] Platelet mean volume (Bld) [Entitic vol] 9.2 fL Normal 7.4-10.4 [facility] Comment on above: Performed By: #### B NP3, BMP3, MG3 #### [address] [place] [address] [place], [place] Platelets (Bld) [#/Vol] 131 10*3/uL Low 140-440 [facility] Comment on above: Performed By: #### B NP3, BMP3, MG3 #### [facility] [address] [place], [place] RBC (Bld) [#/Vol] 2.97 10*6/uL Low 4.40-5.90 [facility] Comment on above: Performed By: #### B NP3, BMP3, MG3 #### [facility] [address] [place], [place] WBC (Bld) [#/Vol] 6.1 10*3/uL Normal 3.6-10.7 [facility] Comment on above: Performed By: #### B NP3, BMP3, MG3 #### [address] [address] Medical Cytologyon 1 Medical Cytology [facility] N [phone] DEPARTMENT OF PATHOLOGY AND [facility], [facility]. LABORATORY MEDICINE [address] [place] [address] [phone] FINAL MEDICAL CYTOLOGY REPORT NAME: AMAURY BLANK : 1940 80 Y M [facility] NO.: [id number] LOCATION: [facility] 6 H TOW INPT PROCEDURE 09/13/2020 6124 01 DATE: PHYSICIAN: KYLAH LIZ MD RECEIVED DATE: 09/14/2020 ATTENDING: GILBERT EHNRY M.D. REPORT DATE: 09/16/2020 COPIES TO: BERT [...] characteristics determined by the clinical laboratories of [facility]. They have not been cleared by the [...] negativity on decalcified specimens. Case reviewed at [facility] [address] [place] [address]. DEPARTMENT OF PATHOLOGY AND LABORATORY MEDICINE [place], [place] [address] [email or web address] Normal [facility] Metabolic Panelon 09-13-2020 Calcium [Mass/Vol] 8.3 mg/dL Low 8.4 - 10. 4 mg/dL [facility] Work Phone: CO2 [Moles/Vol] 21 mmol/L Low 22 - 30 mmol/L [facility] Work Phone: Potassium [Moles/Vol] 3.2 mmol/L Low 3.5 - 5.1 mmol/L [facility] Work Phone: Otheron 09-13-2020 Test Performed by [facility], [address] [place] [id number] [facility] Work Phone: Interpretation and review of laboratory results Abnormal [facility] Work Phone: Test Performed by [employer] [facility], [address] [place] [phone] [place], [place] [id number] Work Phone: Procalcitoninon 09-13-2020 Procalcitonin 0.91 ng/mL Abnormal <0.10 [facility] Comment on above: Performed By: #### B MP3, HEMDF #### [facility] [address] [place] [phone] Interpretation and review of laboratory results Abnormal [facility] Work Phone: Procalcitonin 0.91 ng/mL Abnormal <0.10 [facility] Work Phone: Sodium [Moles/Vol] See Below [facility] Work Phone: Comment on above: PCT <0.50 = Low risk of severe sepsis and/or septic shock. PCT >2.00 = High risk of severe sepsis and/or septic shock. Test Performed by [employer], [address] [place] [id number] [facility] Work Phone: TSH without Reflexon 021 TSH Qn 1.679 u[IU]/mL 0.465 - 4.680 u[IU]/mL [facility] Work Phone: Test Performed by [employer] [facility], [address] [place] [id number] [place], [place] [address]A Work Phone: Thyroid Stim. Hormoneon 08-28 Thyroid Stim. Hormone 1.679 u[IU]/mL Normal 0.46 5-4.68 0 [facility] Comment on above: Performed By: #### B NP3, BMP3, MG3 #### [facility] [address] [place] [address] Vitamin B12on 09-13-2020 Cobalamin (Vitamin B12) [Mass/Vol] pg/mL High 239-931 [facility] Comment on above: Performed By: #### B MP3, HEMDF #### [facility] [address] [place] [address] Cobalamin (Vitamin B12) [Mass/Vol] pg/mL High 239 - 931 pg/mL [facility] Work Phone: Interpretation and review of laboratory results Abnormal [facility] Work Phone: XR CHEST PORTABLEon 09-14-19 Patient Name: AMAURY DAVIS Diagnostic Radiology ACCESSION EXAM DATE/TIME PROCEDURE ORDERING PROVIDER [id number] 09/13/2020 06:54 EDT CR Chest Portable [place] LIZ KYLAH CPT code 69311 Reason For Exam (CR Chest Portable) Right [...] AHMAD Transcribed Date and Time: 09/13/2020 7:24 [facility] Work Phone: [facility] Results From [facility] - 09/13/2020 7:28 AM EDT Patient Name: AMAURY BLANK Diagnostic Radiology ACCESSION EXAM DATE/TIME PROCEDURE ORDERING PROVIDER [id number] 09/13/2020 06:54 EDT CR Chest Portable [place] LIZ SARAH CPT code 74522 Reason For Exam (CR Chest Portable) Right [...] and Time: 09/13/2020 7:24 [facility] Work Phone: CR Chest 1 View Frontalon CR Chest 1 View Frontal Patient Name: AMAURY CÁRDENAS Diagnostic Radiology ACCESSION EXAM DATE/TIME PROCEDURE ORDERING PROVIDER [id number] 09/12/2020 14:33 EDT CR Chest 1 View Frontal [place] LIZ SARAH CPT code 67877 Reason For Exam (CR Chest 1 View [...] Transcribed Date and Time: 09/12/2020 1:39 Normal [facility] CR Chest Portableon 09-13-19 21 CR Chest Portable Patient Name: AMAURY DAVIS Diagnostic Radiology ACCESSION EXAM DATE/TIME PROCEDURE ORDERING PROVIDER [id number] 09/12/2020 07:47 EDT CR Chest Portable [place] LIZ DUDLEY CPT code 49034 Reason For Exam (CR Chest Portable) Dyspnea [...] Transcribed Date and Time: 09/12/2020 8:20 Normal [facility] CREATININE, RANDOM URINEon 0 09-12-2020 Creatinine (U) [Mass/Vol] 91.7 mg/dL No Range [facility] Work Phone: CT CHEST WO CONTRASTon 09-12 Jax, [facility] Incoming Radiology Results From [facility] - 09/12/2020 8:31 AM EDT Patient Name: AMAURY BLANK Computed Tomography ACCESSION EXAM DATE/TIME PROCEDURE ORDERING PROVIDER [id number] 09/12/2020 07:[address] Thorax w/o Contrast DO [facility]H CPT code 21408 Reason For Exam (CT Thorax w/o Contrast) [...] and Time: 09/12/2020 8:27 [facility] Work Phone: Patient Name: [id number] Computed Tomography ACCESSION EXAM DATE/TIME PROCEDURE ORDERING PROVIDER [id number] 09/12/2020 07:[address] Thorax w/o Contrast [facility] CPT code 92607 Reason For Exam (CT Thorax w/o Contrast) [...] Chest w/o Contrast Patient Name: [id number] Computed Tomography ACCESSION EXAM DATE/TIME PROCEDURE ORDERING PROVIDER [id number] 09/12/2020 07:[address] Thorax w/o Contrast DO [facility]H CPT code 61531 Reason For Exam (CT Thorax w/o Contrast) [...] Transcribed Date and Time: 09/12/2020 8:27 Normal [facility] CT GUIDED PLEURAL DRAINAGE W CATH PERCon 09-12-2020 Patient Name: AMAURY DAVIS Computed Tomography ACCESSION EXAM DATE/TIME PROCEDURE ORDERING PROVIDER [id number] 09/12/2020 10:[address] Insert Cath Pleura w/ Chadwick LIZ SARAH Image CPT code 78017 Reason For Exam (CT Insert Cath Pleura [...] usual fashion. Under CT guidance, a 12 Ghanaian pigtail drainage catheter was advanced into position. [...] and Time: 09/12/2020 10:15 [facility] Work Phone: [facility] Incoming Radiology Results From [facility] - 09/12/2020 10:29 AM EDT Patient Name: AMAURY BLANK Computed Tomography ACCESSION EXAM DATE/TIME PROCEDURE ORDERING PROVIDER [id number] 09/12/2020 10:[address] Insert Cath Pleura jason/ Chadwick LIZ SARAH Image CPT code 86844 Reason For Exam (CT Insert Cath Pleura [...] usual fashion. Under CT guidance, a 12 [place]ian pigtail drainage catheter was advanced into position. [...] Phone: [facility] Insert Cath Pleura w/ Image Patient Name: AMAURY BLANK [facility]#: [id number] Computed Tomography ACCESSION EXAM DATE/TIME PROCEDURE ORDERING PROVIDER [id number] 09/12/2020 10:[address] Insert Cath Pleura w/ Chadwick LIZ, KYLAH Image CPT code 45769 Reason For Exam (CT Insert Cath Pleura [...] usual fashion. Under CT guidance, a 12 Ghanaian pigtail drainage catheter was advanced into position. [...] Transcribed Date and Time: 09/12/2020 10:15 Normal [facility] Comp Metabolic Panelon 09-12 ALP [Catalytic activity/Vol] 147 U/L High 38-126 [facility] Comment on above: Performed By: #### B MP3, HEMDF #### [facility] [address] [place] [address] ALT [Catalytic activity/Vol] 24 U/L Normal 0-49 [facility] Comment on above: Result Comment: The ALT test is performed by an updated assay method. Please note that the reference intervals have been changed and are now sex specific. Performed By: #### B MP3, HEMDF #### [facility] [address] [place] [address] Calcium [Mass/Vol] 9.1 mg/dL Normal 8.4-10.4 [facility] Comment on above: Performed By: #### B MP3, HEMDF #### [facility] [address] [place] [address] Glucose [Mass/Vol] 117 mg/dL High 70-100 [facility] Comment on above: Performed By: #### B MP3, HEMDF #### [facility] [address] [place], [place] Protein [Mass/Vol] 5.4 g/dL Low 6.3-8.2 [facility] Comment on above: Performed By: #### B MP3, HEMDF #### [facility] [address] [place], [place] Urea nitrogen [Mass/Vol] 77 mg/dL High 7-20 [facility] Comment on above: Performed By: #### B MP3, HEMDF #### [facility] [address] [place], [place] Anion gap [Moles/Vol] 9 mmol/L Normal 3-13 [facility] Comment on above: Performed By: #### B MP3, HEMDF #### [address] [place] [address] [address] [place], [place] AST [Catalytic activity/Vol] 39 U/L Normal 15-46 [facility] Comment on above: Performed By: #### B MP3, HEMDF #### [address] [place] [address] [address] [place], [place] Bilirubin [Mass/Vol] 1.2 mg/dL Normal 0.2-1.3 [facility] Comment on above: Performed By: #### B MP3, HEMDF #### [facility] [address] [place], [place] CO2 [Moles/Vol] 20 mmol/L Low 22-30 [facility] Comment on above: Performed By: #### B MP3, HEMDF #### [facility] [address] [place], [place] Creatinine [Mass/Vol] 2.18 mg/dL High 0.52-1.25 [facility] Comment on above: Performed By: #### B MP3, HEMDF #### [facility] [address] [place], [place] GFR/1.73 sq M.predicted among blacks MDRD (S/P/Bld) [Vol rate/Area] 32.2 mL/min/{1.73_m2} Abnormal >60 [facility] Comment on above: Performed By: #### B MP3, HEMDF #### [facility] [address] [place] [address] GFR/1.73 sq M.predicted among non-blacks MDRD (S/P/Bld) [Vol rate/Area] 27.8 mL/min/{1.73_m2} Abnormal >60 [facility] Comment on above: Result Comment: KDIG O [...] Performed By: #### B MP3, HEMDF #### [facility] [address] [place], [place] Chloride [Moles/Vol] 110 mmol/L High 98-107 [facility] Comment on above: Performed By: #### B MP3, HEMDF #### [facility] [address] [place], [place] Potassium [Moles/Vol] 3.5 mmol/L Normal 3.5-5.1 [facility] Comment on above: Performed By: #### B MP3, HEMDF #### [facility] [address] [place], [place] Sodium [Moles/Vol] 140 mmol/L Normal 135-145 [facility] Comment on above: Performed By: #### B MP3, HEMDF #### [facility] [address] [place], [place] Albumin [Mass/Vol] 2.8 g/dL Low 3.5-5.0 [facility] Comment on above: Performed By: #### B MP3, HEMDF #### [facility] [address] [place], [place] Complete Urinalysison 2020 Appearance (U) Clear Normal Clear [facility] Comment on above: Result Comment: . Performed By: #### B MP3, HEMDF #### [facility] [address] [place], [place] Bacteria LM.HPF (Urine sed) [#/Area] Negative Normal Negative [facility] Comment on above: Result Comment: . Performed By: #### B MP3, HEMDF #### [facility] [address] [place], [place] Bilirubin,Urine Negative Normal Negative [facility] Comment on above: Result Comment: . Performed By: #### B MP3, HEMDF #### [address] [place] [address] [address] [place], [place] Cast, Hyaline Negative Normal Negative [facility] Comment on above: Result Comment: . Performed By: #### B MP3, HEMDF #### [facility] [address] [place], [place] Color (U) Yellow Normal Lt. Yellow [facility] Comment on above: Result Comment: . Performed By: #### B MP3, HEMDF #### [facility] [address] [place], [place] Glucose Ql (U) Normal Normal Normal (<70) [facility] Comment on above: Result Comment: . Performed By: #### B MP3, HEMDF #### [facility] [address] [place], [place] Ketone,Urine Negative Normal Negative [facility] Comment on above: Result Comment: . Performed By: #### B MP3, HEMDF #### [facility] [address] [place], [place] Leukocytes,Urine Negative Normal Negative [facility] Comment on above: Result Comment: . Performed By: #### B MP3, HEMDF #### [facility] [address] [place], [place] Nitrites,Urine Negative Normal Negative [facility] Comment on above: Result Comment: . Performed By: #### B MP3, HEMDF #### [facility] [address] [place], [place] Occult Blood,Urine Negative Normal Negative [facility] Comment on above: Result Comment: . Performed By: #### B MP3, HEMDF #### [facility] [address] [place], [place] pH,Urine 5.5 Normal 5.0-8.0 [facility] Comment on above: Result Comment: . Performed By: #### B MP3, HEMDF #### [facility] [address] [place], [place] Protein (U) [Mass/Vol] 10 mg/dL Abnormal Negative [facility] Comment on above: Result Comment: . Performed By: #### B MP3, HEMDF #### [place] [address] [address] [place], [place] RBC, Urine 0 - 2 Normal 0-2 [facility] Comment on above: Result Comment: . Performed By: #### B MP3, HEMDF #### [address] [place] [address] [address] [place], [place] Specific [place],Urine 1.016 Normal 1.005 - 1.030 [facility] Comment on above: Result Comment: . Performed By: #### B MP3, HEMDF #### [address] [place] [address] [address] [place], [place] Squamous Epithelial 0 - 2 Normal 3-5 [facility] Comment on above: Result Comment: . Performed By: #### B MP3, HEMDF #### [facility] [address] [place], [place] Urobilinogen,Urine Normal Normal Normal (0-1) [facility] Comment on above: Result Comment: . Performed By: #### B MP3, HEMDF #### [facility] [address], [place] WBC, Urine 0 - 2 Normal 0-5 [facility] Comment on above: Result Comment: . Performed By: #### B MP3, HEMDF #### [facility] [address] [place] [address] Creatinine, Ur Randomon 08-28 Creatinine, Ur Random 91.7 mg/dL Normal No Range [facility] Comment on above: Performed By: #### B MP3, HEMDF #### [facility] [address] [place] [address] EKG 12 Leadon 09-12-2020 Jax, [facility] Incoming Cardiology Results From [facility] - 09/12/2020 10:08 AM EDT [facility] Test Date: 2020-09-12 Pat Name: Amaury Blank Department: 1A6 Room: 6124 Gender: M Forensic Science Examiner: ROBBY : 1940 Requested By: Consulting ServicesBORA RAMIREZClickable Order Number: [id number] Reading MD: Jason Booker Measurements Intervals [place] Rate: 97 P: WV: QRS: -53 QRSD: 132 T: -4 QT: [...] On 09-12-2020 10:07:34 EDT by Jason Booker [facility] Work Phone: 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 Anterior Q waves, possibly due to LVH Compared to ECG 09/11/2020 21:10:15 2:1 AV block now present Possible ischemia no longer present Prolonged QT interval no longer present Electronically Signed On 09-12-2020 10:07:34 EDT by [employer] Work Phone: [facility] Test Date: 2020-09-11 Pat Name: Amaury Blank Department: 1A6 Room: [facility] Gender: M Forensic Science Examiner: : 1940 Requested By: WILNEROneTouchBORA MINAThriveHive Order Number: [id number] Reading MD: Jason Booker Measurements Intervals [place] Rate: 107 P: 109 WV: 149 QRS: -54 QRSD: 101 T: 108 QT: 445 QTc: 594 Interpretive Statements Sinus tachycardia Inferior st depression. consider ischemia. Repol abnrm suggests ischemia, diffuse leads Prolonged QT interval Electronically Signed On 09-12-2020 9:57:55 EDT by [employer] Work Phone: Jax, [facility] Incoming Cardiology Results From [facility] - 09/12/2020 9:58 AM EDT [facility] Test Date: 2020-09-11 Pat Name: Amaury Blank Department: 1A6 Room: [facility] Gender: M Forensic Science Examiner: : 1940 Requested By: WILNEROneTouchBORA KAMINSKI Order Number: [id number] Reading MD: Jason Booker Measurements Intervals [place] Rate: 107 P: 109 WV: 149 QRS: -54 QRSD: 101 T: 108 QT: 445 QTc: 594 Interpretive Statements Sinus tachycardia Inferior st depression. consider ischemia. Repol abnrm suggests ischemia, diffuse leads Prolonged QT interval Electronically Signed On 09-12-2020 9:57:55 EDT by [employer] Work Phone: Hemogram w/ Autodiffon 09-12 Abs Baso Cnt 0.0 10*3/uL Normal 0.0-0.2 [facility] Comment on above: Performed By: #### B MP3, HEMDF #### [facility] [address] [place] [phone] Abs Neutrophile Cnt 7.7 10*3/uL High 1.8-7.0 [facility] Comment on above: Performed By: #### B MP3, HEMDF #### [place] [address], [place] Basophils/100 WBC (Bld) 0.1 % Normal 0.0-2.0 S [facility] Comment on above: Performed By: #### B MP3, HEMDF #### [place] [address], [place] Eosinophils (Bld) [#/Vol] 0.0 10*3/uL Normal 0.0-0.5 [facility] Comment on above: Performed By: #### B MP3, HEMDF #### [place] [address] [place], [place] Eosinophils/100 WBC (Bld) 0.0 % Low 1.0-6.0 [facility] Comment on above: Performed By: #### B MP3, HEMDF #### [place] [address], [place] Erythrocyte distribution width (RBC) [Ratio] 14.3 % Normal 11.5-14.5 [facility] Comment on above: Performed By: #### B MP3, HEMDF #### [place] [address] [place], [place] Granulocytes/100 WBC (Bld) 85.2 % High 40.0-80.0 [facility] Comment on above: Performed By: #### B MP3, HEMDF #### [place] [address] [place], [place] Hematocrit (Bld) [Volume fraction] 33.2 % Low 40.0-52.0 [facility] Comment on above: Performed By: #### B MP3, HEMDF #### [place] [address] [place], [place] Hemoglobin (Bld) [Mass/Vol] 11.0 g/dL Low 13.0-18.0 [facility] Comment on above: Performed By: #### B MP3, HEMDF #### [place] [address] [place], [place] Lymphocytes (Bld) [#/Vol] 0.5 10*3/uL Low 1.0-4.3 [facility] Comment on above: Performed By: #### B MP3, HEMDF #### [facility] [address], [place] Lymphocytes/100 WBC (Bld) 5.0 % Low 20.0-40.0 [facility] Comment on above: Performed By: #### B MP3, HEMDF #### [facility] [address], [place] MCH (RBC) [Entitic mass] 33.4 pg Normal 26.0-34.0 [facility] Comment on above: Performed By: #### B MP3, HEMDF #### [place] [address] [place], [place] MCHC 33.1 % Normal 32.0-36.0 [facility] Comment on above: Performed By: #### B MP3, HEMDF #### [place] [address] [place], [place] MCV (RBC) [Entitic vol] 100.9 fL High 80.0-98.0 [facility] Comment on above: Performed By: #### B MP3, HEMDF #### [place] [address] [place], [place] Monocytes (Bld) [#/Vol] 0.9 10*3/uL High 0.0-0.8 [facility] Comment on above: Performed By: #### B MP3, HEMDF #### [place] [address] [place], [place] Monocytes/100 WBC (Bld) 9.7 % Normal 2.0-10.0 [facility] Comment on above: Performed By: #### B MP3, HEMDF #### [place] [address] [place], [place] Platelet mean volume (Bld) [Entitic vol] 8.7 fL Normal 7.4-10.4 [facility] Comment on above: Performed By: #### B MP3, HEMDF #### [facility] [address], [place] Platelets (Bld) [#/Vol] 137 10*3/uL Low 140-440 [facility] Comment on above: Performed By: #### B MP3, HEMDF #### [facility] [address], [place] RBC (Bld) [#/Vol] 3.29 10*6/uL Low 4.40-5.90 [facility] Comment on above: Performed By: #### B MP3, HEMDF #### [facility] [address], [place] WBC (Bld) [#/Vol] 9.1 10*3/uL Normal 3.6-10.7 [facility] Comment on above: Performed By: #### B MP3, HEMDF #### [facility] [address], [place] LEGIONELLA AG, URINEon 09-12 LEGIONELLA AG, URINE LEGIONELLA AG, URIN E --> Status: F Legionella antigen NOT DETECTED. Normal [facility] Comment on above: Performed By: #### C /TBC #### [facility] [address], [place] Lactic Acidon 09-12-2020 Lactate [Moles/Vol] 1.4 mmol/L Normal 0.7-2.0 [facility] Comment on above: Performed By: #### C /TBC #### [facility] [address], [place] Legionella Antigen, Urineon 09-12-2020 LEGIONELLA ANTIGEN Legionella antigen N OT DETECTED. [facility] Work Phone: MRSA by PCRon 09-12-2020 Staph Aureus Sc No S. aureus detecte d. Negative nasal MRSA PCR has a high negative predictive value for MRSA pneumonia. Consider stopping vancomycin if no other clinical indication. Contact Antimicrobial Stewardship for further recommendations. The analytical performance characteristics of this assay have been determined by [employer] in accordance with CLIA regulations. The modifications have not been cleared or approved by the U. S. Food and Drug Administration; however, the FDA has determined that such clearance or approval is not necessary. [facility] Work Phone: Test Performed by [facility], [address] [place] [id number] [place], [place] [address]A Work Phone: Magnesiumon 09-12-2020 Magnesium [Mass/Vol] 2.1 mg/dL Normal 1.6-2.3 [facility] Comment on above: Performed By: #### B MP3, HEMDF #### [address] [phone] Otheron 09-12-2020 Test Performed by [facility], [address] [place] [id number] [place], [place] [address]A Work Phone: Test Performed by [facility], [address] [place] [id number] [place], [place] [address]A Work Phone: Phosphoruson 09-12-2020 Phosphate [Mass/Vol] 4.5 mg/dL Normal 2.5-4.5 [facility] Comment on above: Performed By: #### B MP3, HEMDF #### [address] Procalcitoninon 09-12-2020 Interpretation See Below Normal [facility] Comment on above: Result Comment: PCT <0.50 = Low risk of severe sepsis and/or septic shock. PCT >2.00 = High risk of severe sepsis and/or septic shock. Performed By: #### B MP3, HEMDF #### [address] Procalcitonin 0.81 ng/mL Abnormal <0.10 [facility] Comment on above: Performed By: #### C /TBC #### [address] Interpretation and review of laboratory results Abnormal [facility] Work Phone: Procalcitonin 0.81 ng/mL Abnormal <0.10 [facility] Work Phone: Sodium [Moles/Vol] See Below [facility] Work Phone: Comment on above: PCT <0.50 = Low risk of severe sepsis and/or septic shock. PCT >2.00 = High risk of severe sepsis and/or septic shock. Test Performed by [facility], [address] [place] [id number] [facility] Work Phone: Protime AND APTTon 1 aPTT Coag (Bld) [Time] 34.6 s High 20.0-30.5 [facility] Comment on above: Result Comment: NOTE : The therapeutic time for Heparin anticoagulation, based on Xa activity inhibition, is an APTT of 46-80 seconds. Performed By: #### B MP3, HEMDF #### [facility] [address] [address] INR 1.3 High 0.9-1.1 [facility] [employer] Comment on above: Result Comment: Abhishek mmended [...] Performed By: #### B MP3, HEMDF #### [facility] [address] [place] [address] PT Coag (PPP) [Time] 13.8 s High 9.0-12.0 [facility] [employer] Comment on above: Result Comment: . Performed By: #### B MP3, HEMDF #### [employer] [address] [place] [address] Protime/INR & PTTon 09-13-19 21 aPTT Coag (Bld) [Time] 34.6 s High 20.0 - 30.5 s [facility] Work Phone: Comment on above: NOTE: The therapeuti c time for Heparin anticoagulation, based on Xa activity inhibition, is an APTT of 46-80 seconds. INR Coag (PPP) [Relative time] 1.3 {INR} High [facility] Work Phone: Comment on above: Recommended Anticoag [...] Interpretation and review of laboratory results Abnormal [facility] Work Phone: PT Coag (PPP) [Time] 13.8 s High 9.0 - 1 2.0 s [facility] Work Phone: Comment on above: . Test Performed by [facility], [address] [place] [id number] [facility] Work Phone: SODIUM, URINE, RANDOMon 08-28 Interpretation and review of laboratory results Abnormal [facility] Work Phone: Sodium (U) [Moles/Vol] 10 mmol/L Low 30 - 90 mmol/L [facility] Work Phone: STREP PNEUMO ANTIGEN, URINEo n 09-12-2020 STREP PNEUMO ANTIGEN, URINE STREP PNEUMO ANTIGEN, URINE --> Status: F Strep pneumo antigen NOT DETECTED. Normal [facility] [employer] Comment on above: Performed By: #### C /TBC #### [facility] [employer] [address] [place] [phone] STREP PNEUMONIAE ANTIGENon 0 09-12-2020 STREP PNEUMONIAE ANTIGEN, URINE Strep pneumo antigen NOT DETECTED. [facility] Work Phone: Sed Rateon 09-12-2020 Sed Rate 25 mm/h High 0-10 [facility] [employer] Comment on above: Performed By: #### B MP3, HEMDF #### [facility] [employer] [address] [place] [address] Sedimentation Rateon 021 Interpretation and review of laboratory results Abnormal [facility] Work Phone: Sed Rate 25 mm/h High 0 - 10 mm/h [facility] Work Phone: Test Performed by [facility], [address] [place] [address] [facility] Work Phone: Sodium, Ur Randomon 09-13-19 21 Sodium [Moles/Vol] 10 mmol/L Low 30-90 [facility] Comment on above: Performed By: #### B MP3, HEMDF #### [facility] [address] [place] [address] Staph Aureus Complete Nasalo n 09-12-2020 Staph Aureus Complete Nasal Staph Screen --> Status: F No S. aureus detected. Negative nasal MRSA PCR has a high negative predictive value for MRSA pneumonia. Consider stopping vancomycin if no other clinical indication. Contact Antimicrobial Stewardship for further recommendations. The analytical performance characteristics of this assay have been determined by [employer] [facility] in accordance with CLIA regulations. The modifications [...] of this assay have been determined by [employer] in accordance with CLIA regulations. The modifications have not been cleared or approved by the U. S. Food and Drug Administration; however, the FDA has determined that such clearance or approval is not necessary. Normal [facility] Comment on above: Performed By: #### S APCR #### [facility] [address] [place] [address] UREA NITROGEN, URINEon 09-12 Urea Nitrogen, Random Urine 1202 mg/dL No Range [facility] Work Phone: US RETROPERITONEAL LIMITEDon 09-12-2020 Patient Name: AMAURY DAVIS Ultrasound ACCESSION EXAM DATE/TIME PROCEDURE ORDERING PROVIDER [id number] 09/12/2020 08:05 EDT US Retroperitoneal PHANGUREH, DO, Limited INDERPARTAP YARELI CPT code 60913 Reason For Exam (US Retroperitoneal Limited) MYRON [...] Phone: [facility], [facility] Incoming Radiology Results From [facility] - 09/12/2020 8:32 AM EDT Patient Name: AMAURY BLANK Ultrasound ACCESSION EXAM DATE/TIME PROCEDURE ORDERING PROVIDER [id number] 09/12/2020 08:05 EDT US Retroperitoneal PHANGUREH, DO, Limited INDERPARTAP DOWNS CPT code 03169 Reason For Exam (US Retroperitoneal Limited) MYRON [...] JEFFREY Transcribed Date and Time: 09/12/2020 8:30 [facility] Work Phone: US Retroperitoneal Limitedon 09-12-2020 US Retroperitoneal Limited Patient Name: AMAURY BLANK Ultrasound ACCESSION EXAM DATE/TIME PROCEDURE ORDERING PROVIDER [id number] 09/12/2020 08:05 EDT US Retroperitoneal PHANGUREH, DO, Limited INDERPARTAP DOWNS CPT code 24839 Reason For Exam (US Retroperitoneal Limited) MYRON [...] Transcribed Date and Time: 09/12/2020 8:30 Normal [facility] Urea Nitrogen,Ur Randomon Urea nitrogen [Mass/Vol] 1202 mg/dL Normal No Range [facility] Comment on above: Performed By: #### B MP3, HEMDF #### [facility] [address] [place] [phone] Urinalysison 09-12-2020 Appearance (U) Clear Clear NA [facility] Work Phone: Comment on above: . Bacteria, UA Negative Negative /[HPF] [facility] Work Phone: Comment on above: . Bilirubin Urine Negative Negative mg/dL [facility] Work Phone: [phone] Comment on above: . Color (U) Yellow Lt. Yellow NA [facility] Work Phone: [phone] Comment on above: . Glucose, Ur Normal Normal (<70) mg/dL [facility] Work Phone: [phone] Comment on above: . Hyaline Casts, UA Negative Negative /[LPF] [facility] Work Phone: [phone] Comment on above: . Interpretation and review of laboratory results Abnormal [facility] Work Phone: [phone] Ketones Ql (U) Negative Negative mg/dL [facility] Work Phone: [phone] Comment on above: . LEUKOCYTES, UA Negative Negative Khurram/uL [facility] Work Phone: [phone] Comment on above: . Nitrite, Urine Negative Negative NA [facility] Work Phone: [phone] Comment on above: . Occult Blood,Urine Negative Negative mg/dL [facility] Work Phone: [phone] Comment on above: . pH (U) 5.5 [pH] [facility] Work Phone: [phone] Comment on above: . Protein (U) [Mass/Vol] 10 mg/dL Abnormal Negative [facility] Work Phone: [phone] Comment on above: . RBC (U) [#/Vol] 0-2 0 - 2 /[HPF] [facility] Work Phone: [phone] Comment on above: . Specific [place], Urine [address] [facility] Work Phone: [phone] Comment on above: . Squam Epithel, UA 0-2 3 - 5 /[HPF] [facility] Work Phone: [phone] Comment on above: . Urobilinogen, Urine Normal Normal (0-1) mg/dL [facility] Work Phone: Comment on above: . WBC, UA 0-2 0 - 5 /[HPF] [facility] Work Phone: Comment on above: . Test Performed by [facility], [address] [place] [address] [facility] Work Phone: XR CHEST 1 VWon 09-12-2020 Jax, [facility] Incoming Radiology Results From [facility] - 09/12/2020 2:33 PM EDT Patient Name: AMAURY BLANK Diagnostic Radiology ACCESSION EXAM DATE/TIME PROCEDURE ORDERING PROVIDER [id number] 09/12/2020 14:33 EDT CR Chest 1 View Frontal [place] LIZ, KYLAH CPT code 27804 Reason For Exam (CR Chest 1 View [...] and Time: 09/12/2020 1:39 [facility] Work Phone: Patient Name: AMAURY DAVIS Diagnostic Radiology ACCESSION EXAM DATE/TIME PROCEDURE ORDERING PROVIDER [id number] 09/12/2020 14:33 EDT CR Chest 1 View Frontal [place] LIZ, [place]LAH CPT code 29010 Reason For Exam (CR Chest 1 View [...] CHEST PORTABLEon 09-13-19 Patient Name: AMAURY DAVIS [facility]#: [id number] Diagnostic Radiology ACCESSION EXAM DATE/TIME PROCEDURE ORDERING PROVIDER [id number] 09/12/2020 07:47 EDT CR Chest Portable [place] LIZ SARAH CPT code 57796 Reason For Exam (CR Chest Portable) Dyspnea [...] Dictated: 09/12/2020 8:20 am Dictating Physician: MD AGUIALR JEFFREY Signed Date and Time: 09/12/2020 8:26 am Signed by: MD AGUILAR JEFFREY Transcribed Date and Time: 09/12/2020 8:20 [facility] Work Phone: Jax, [facility] Incoming Radiology Results From [facility] - 09/12/2020 8:28 AM EDT Patient Name: AMAURY BLANK Diagnostic Radiology ACCESSION EXAM DATE/TIME PROCEDURE ORDERING PROVIDER [id number] 09/12/2020 07:47 EDT CR Chest Portable [place] LIZ SARAH CPT code 86348 Reason For Exam (CR Chest Portable) Dyspnea [...] JEFFREY Transcribed Date and Time: 09/12/2020 8:20 [facility] Work Phone: CBC Auto Differentialon 08-28 Absolute Baso # 0.0 10*3/uL 0.0 - 0.2 10*3/uL [facility] Work Phone: Absolute Neut # 7.7 10*3/uL High 1.8 - 7.0 10*3/uL [facility] Work Phone: Basophils/100 WBC (Bld) 0.1 % 0.0 - 2.0 % [facility] Work Phone: Eosinophils (Bld) [#/Vol] 0.0 10*3/uL 0.0 - 0.5 10*3/uL [facility] Work Phone: Eosinophils/100 WBC (Bld) 0.0 % Low 1.0 - 6.0 % [facility] Work Phone: [phone] Erythrocyte distribution width (RBC) [Ratio] 14.3 % 11.5 - 14.5 % [facility] Work Phone: [phone] Granulocytes/100 WBC (Bld) 85.2 % High 40.0 - 80.0 % [facility] Work Phone: [phone] Hematocrit (Bld) [Volume fraction] 33.2 % Low 40.0 - 52.0 % [facility] Work Phone: [phone] Hemoglobin (Bld) [Mass/Vol] 11.0 g/dL Low 13.0 - 18.0 g/dL [facility] Work Phone: [phone] Interpretation and review of laboratory results Abnormal [facility] Work Phone: [phone] Lymphocytes (Bld) [#/Vol] 0.5 10*3/uL Low 1.0 - 4.3 10*3/uL [facility] Work Phone: [phone] Lymphocytes/100 WBC (Bld) 5.0 % Low 20.0 - 40.0 % [facility] Work Phone: [phone] MCH (RBC) [Entitic mass] 33.4 pg 26.0 - 34.0 pg [facility] Work Phone: [phone] MCHC (RBC) [Mass/Vol] 33.1 % 32.0 - 36.0 % [facility] Work Phone: [phone] MCV (RBC) [Entitic vol] 100.9 fL High 80.0 - 98.0 fL [facility] Work Phone: [phone] Monocytes (Bld) [#/Vol] 0.9 10*3/uL High 0.0 - 0.8 10*3/uL [facility] Work Phone: [phone] Monocytes/100 WBC (Bld) 9.7 % 2.0 - 10.0 % [facility] Work Phone: [phone] Platelet mean volume (Bld) [Entitic vol] 8.7 fL 7.4 - 10.4 fL [facility] Work Phone: [phone] Platelets (Bld) [#/Vol] 137 10*3/uL Low 140 - 440 10*3/uL [facility] Work Phone: [phone] RBC (Bld) [#/Vol] 3.29 10*6/uL Low 4.40 - 5.90 10*6/uL [facility] Work Phone: [phone] WBC (Bld) [#/Vol] 9.1 10*3/uL 3.6 - 10.7 10*3/uL [facility] Work Phone: [phone] Test Performed by [facility], [address] [place] [address] [facility] Work Phone: [phone] Comprehensive Metabolic Pane joanne 09-11-2020 Albumin [Mass/Vol] 2.8 g/dL Low 3.5 - 5.0 g/dL [facility] Work Phone: [phone] ALP [Catalytic activity/Vol] 147 U/L High 38 - 126 U/L [facility] Work Phone: [phone] ALT [Catalytic activity/Vol] 24 U/L 0 - 49 U/L [facility] Work Phone: [phone] Comment on above: The ALT test is perf ormed by an updated assay method. Please note that the reference intervals have been changed and are now sex specific. Anion gap [Moles/Vol] 9 mmol/L 3 - 13 mmol/L [facility] Work Phone: [phone] AST [Catalytic activity/Vol] 39 U/L 15 - 46 U/L [facility] Work Phone: [phone] Bilirubin Ql (U) 1.2 mg/dL 0.2 - 1.3 mg/dL [facility] Work Phone: [phone] Calcium [Mass/Vol] 9.1 mg/dL 8.4 - 10. 4 mg/dL [facility] Work Phone: [phone] Chloride [Moles/Vol] 110 mmol/L High 98 - 10 7 mmol/L [facility] Work Phone: [phone] CO2 [Moles/Vol] 20 mmol/L Low 22 - 30 mmol/L [facility] Work Phone: [phone] Creatinine [Mass/Vol] 2.18 mg/dL High 0.52 - 1.25 mg/dL [facility] Work Phone: EGFR IF NonAfrican Mexican 27.8 mL/min Abnormal >60 [facility] Work Phone: Comment on above: KDIGO guidelines [...] (S/P/Bld) [Vol rate/Area] 32.2 mL/min/{1.73_m2} Abnormal >60 [facility] Work Phone: Glucose [Mass/Vol] 117 mg/dL High 70 - 100 mg/dL [facility] Work Phone: Interpretation and review of laboratory results Abnormal [facility] Work Phone: Potassium [Moles/Vol] 3.5 mmol/L 3.5 - 5.1 mmol/L [facility] Work Phone: Protein [Mass/Vol] 5.4 g/dL Low 6.3 - 8.2 g/dL [facility] Work Phone: Sodium [Moles/Vol] 140 mmol/L 135 - 145 mmol/L [facility] Work Phone: Urea nitrogen [Mass/Vol] 77 mg/dL High 7 - 20 mg/dL [facility] Work Phone: Lactic Acid, Plasmaon 2020 Lactate [Moles/Vol] 1.4 mmol/L 0.7 - 2. 0 mmol/L [facility] Work Phone: Test Performed by [facility], [address] [place] [id number] [facility] Work Phone: Magnesiumon 09-11-2020 Magnesium [Mass/Vol] 2.1 mg/dL 1.6 - 2 .3 mg/dL [facility] Work Phone: Otheron 09-11-2020 Test Performed by [facility] [facility], [address] [place] [address] [facility] Work Phone: Phosphoruson 09-11-2020 Phosphate [Mass/Vol] 4.5 mg/dL 2.5 - 4 .5 mg/dL [facility] Work Phone: Procalcitoninon 09-11-2020 Interpretation See Below Normal [facility] [employer] Comment on above: Result Comment: PCT <0.50 = Low risk of severe sepsis and/or septic shock. PCT >2.00 = High risk of severe sepsis and/or septic shock. Performed By: #### C /TBC #### [facility] [address] [place] [phone] Vital Signs Date Time Vital Sign Value Performing Clinician Facility 03-03-2025 11:37-0400 Body height 180.[address] Rosa Maria Santacruz MD Work Phone: [facility] 03-03-2025 11:37-0400 Body mass index (BMI) [Ratio] 23.7 kg/m2 Dr. Rosa Maria Santacruz MD Work Phone: [facility] 03-03-2025 11:37-0400 Body temperature 98.2 [degF] Dr. Rosa Maria Santacruz MD Work Phone: [facility] [facility] 03-03-2025 11:37-0400 Body weight 77.[address] Rosa Maria Santacruz MD Work Phone: [facility] 03-03-2025 11:37-0400 Diastolic blood pressure 86 mm[Hg] Dr. Rosa Maria Santacruz MD Work Phone: [facility] 03-03-2025 11:37-0400 Heart rate 66 /min Dr. Rosa Maria Santacruz MD Work Phone: 6(452)470-137228 [place] [address] 03-03-2025 11:37-0400 Respiratory rate 18 /min Dr. Rosa Maria Santacruz MD Work Phone: 3(223)317-737828 [place] [address] 03-03-2025 11:37-0400 SaO2% (BldA) [Mass fraction] 98 % Dr. Rosa Maria Santacruz MD Work Phone: 5(852)405-685628 [place] [address] 03-03-2025 11:37-0400 Systolic blood pressure 175 mm[Hg] Dr. Rosa Maria Santacruz MD Work Phone: 0(491)625-135328 [place] [address] 02-23-2025 07:06-0400 Body height 180.[address] Rosa Maria Santacruz MD Work Phone: 3(355)598-221428 [place] [address] 02-23-2025 07:06-0400 Body weight 77.[address] Rosa Maria Santacruz MD Work Phone: 9(157)593-167428 [place] [address] 02-22-2025 08:26-0400 Body mass index (BMI) [Ratio] 23.7 kg/m2 Dr. Rosa Maria Santacruz MD Work Phone: 2(419)337-976028 [place] [address] 12-27-2024 12:44-0400 Body temperature 97.8 [degF] Dr. Rosa Maria Santacruz MD Work Phone: 4(156)159-441428 [place] [address] 12-27-2024 12:44-0400 Diastolic blood pressure 60 mm[Hg] Dr. Rosa Maria Santacruz MD Work Phone: 3(828)869-113328 [place] [address] 12-27-2024 12:44-0400 Heart rate 68 /min Dr. Rosa Maria Santacruz MD Work Phone: 6(854)973-794128 [place] [address] 12-27-2024 12:44-0400 Respiratory rate 18 /min Dr. Rosa Maria Santacruz MD Work Phone: 8(259)048-118328 [place] [address] 12-27-2024 12:44-0400 SaO2% (BldA) [Mass fraction] 94 % Dr. Rosa Maria Santacruz MD Work Phone: 9(020)396-575128 [place] [address] 12-27-2024 12:44-0400 Systolic blood pressure 154 mm[Hg] Dr. Rosa Maria Santacruz MD Work Phone: [facility] 12-27-2024 09:29-0400 Body height 177.[address] Rosa Maria Santacruz MD Work Phone: 1(245)897-449078 [place] [address] 12-27-2024 09:29-0400 Body mass index (BMI) [Ratio] 24.3 kg/m2 Dr. Rosa Maria Santacruz MD Work Phone: 3(411)926-749978 [place] [address] 12-27-2024 09:29-0400 Body weight [address] Rosa Maria Santacruz MD Work Phone: 6(535)032-061528 [place] [address] 12-10-2024 13:18-0400 Body height 177.[address] Rosa Maria Santacruz MD Work Phone: 3(690)391-642628 [place] [address] 12-10-2024 13:18-0400 Body mass index (BMI) [Ratio] 23.3 kg/m2 Dr. Rosa Maria Santacruz MD Work Phone: 3(239)482-554778 [place] [address] 12-10-2024 13:18-0400 Body weight 73.[address] Rosa Maria Santacruz MD Work Phone: 5(342)302-114132 [address] 12-10-2024 13:18-0400 Diastolic blood pressure 75 mm[Hg] Dr. Rosa Maria Santacruz MD Work Phone: 5(816)596-668828 [place] [address] 12-10-2024 13:18-0400 Heart rate 84 /min Dr. Rosa Maria Santacruz MD Work Phone: 0(229)079-874378 [place] [address] 12-10-2024 13:18-0400 Respiratory rate 17 /min Dr. Rosa Maria Santacruz MD Work Phone: 7(037)880-893928 [place] [address] 12-10-2024 13:18-0400 SaO2% (BldA) [Mass fraction] 97 % Dr. Rosa Maria Santacruz MD Work Phone: 6(773)720-148078 [place] [address] 12-10-2024 13:18-0400 Systolic blood pressure 161 mm[Hg] Dr. Rosa Maria Santacruz MD Work Phone: [facility] 11-18-2024 14:14-0400 Diastolic blood pressure 60 mm[Hg] Dr. Rosa Maria Santacruz MD Work Phone: [facility] 11-18-2024 14:14-0400 Heart rate 70 /min Dr. Rosa Maria Santacruz MD Work Phone: [facility] 11-18-2024 14:14-0400 Systolic blood pressure 145 mm[Hg] Dr. Rosa Maria Santacruz MD Work Phone: [facility] 11-18-2024 10:04-0400 Body height 177.[address] Rosa Maria Santacruz MD Work Phone: [facility] 11-18-2024 10:04-0400 Body mass index (BMI) [Ratio] 24.3 kg/m2 Dr. Rosa Maria Santacruz MD Work Phone: [facility] 11-18-2024 10:04-0400 Body temperature 96.9 [degF] Dr. Rosa Maria Santacruz MD Work Phone: [facility] 11-18-2024 10:04-0400 Body weight 77.[address] Rosa Maria Santacruz MD Work Phone: [facility] 11-18-2024 10:04-0400 Respiratory rate 16 /min Dr. Rosa Maria Santacruz MD Work Phone: [facility] 11-18-2024 10:04-0400 SaO2% (BldA) [Mass fraction] 93 % Dr. Rosa Maria Santacruz MD Work Phone: [facility] 11-08-2024 22:16-0400 Body temperature 98 [degF] Dr. Rosa Maria Santacruz MD Work Phone: [facility] 11-08-2024 22:16-0400 Diastolic blood pressure 78 mm[Hg] Dr. Rosa Maria Santacruz MD Work Phone: [facility] 11-08-2024 22:16-0400 Heart rate 78 /min Dr. Rosa Maria Santacruz MD Work Phone: [facility] 11-08-2024 22:16-0400 Respiratory rate 18 /min Dr. Rosa Maria Santacruz MD Work Phone: [facility] 11-08-2024 22:16-0400 SaO2% (BldA) [Mass fraction] 99 % Dr. Rosa Maria Santacruz MD Work Phone: 1(452)489-798278 [place] [address] 11-08-2024 22:16-0400 Systolic blood pressure 122 mm[Hg] Dr. Rosa Maria Santacruz MD Work Phone: 1(702)066-615078 [place] [address] 11-08-2024 14:42-0400 Body height 177.[address] Rosa Maria Santacruz MD Work Phone: 4(617)872-378732 [address] 11-08-2024 14:42-0400 Body mass index (BMI) [Ratio] 24.2 kg/m2 Dr. Rosa Maria Santacruz MD Work Phone: 0(870)040-164078 [place] [address] 11-08-2024 14:42-0400 Body weight 76.[address] Rosa Maria Santacruz MD Work Phone: 6(799)499-405532 [address] 11-08-2024 13:35-0400 Body mass index (BMI) [Ratio] 24.1 kg/m2 Dr. Rosa Maria Santacruz MD Work Phone: 2(646)782-765778 [place] [address] 11-08-2024 13:35-0400 Body temperature 98 [degF] Dr. Rosa Maria Santacruz MD Work Phone: 3(060)542-898378 [place] [address] 11-08-2024 13:35-0400 Body weight 76.[address] Rosa Maria Santacruz MD Work Phone: [facility] 11-08-2024 13:35-0400 Diastolic blood pressure 70 mm[Hg] Dr. Rosa Maria Santacruz MD Work Phone: 4(370)079-738978 [place] [address] 11-08-2024 13:35-0400 Heart rate 67 /min Dr. Rosa Maria Santacruz MD Work Phone: 8(713)543-090078 [place] [address] 11-08-2024 13:35-0400 Respiratory rate 18 /min Dr. Rosa Maria Santacruz MD Work Phone: [facility] 11-08-2024 13:35-0400 SaO2% (BldA) [Mass fraction] 98 % Dr. Rosa Maria Santacruz MD Work Phone: [facility] 11-08-2024 13:35-0400 Systolic blood pressure 152 mm[Hg] Dr. Rosa Maria Santacruz MD Work Phone: [facility] 10-01-2024 12:59-0400 Body height 177.[address] Rosa Maria Santacruz MD Work Phone: [facility] 10-01-2024 12:59-0400 Body mass index (BMI) [Ratio] 24.3 kg/m2 Dr. Rosa Maria Santacruz MD Work Phone: [facility] 10-01-2024 12:59-0400 Body weight 77.[address] Rosa Maria Santacruz MD Work Phone: [facility] 10-01-2024 12:59-0400 Diastolic blood pressure 68 mm[Hg] Dr. Rosa Maria Santacruz MD Work Phone: [facility] 10-01-2024 12:59-0400 Heart rate 78 /min Dr. Rosa Maria Santacruz MD Work Phone: [facility] 10-01-2024 12:59-0400 Respiratory rate 18 /min Dr. Rosa Maria Santacruz MD Work Phone: [facility] 10-01-2024 12:59-0400 SaO2% (BldA) [Mass fraction] 96 % Dr. Rosa Maria Santacruz MD Work Phone: [facility] 10-01-2024 12:59-0400 Systolic blood pressure 114 mm[Hg] Dr. Rosa Maria Santacruz MD Work Phone: [facility] 11-10-2023 19:21-0400 Body temperature 98.1 [degF] Dr. Rosa Maria Santacruz Work Phone: [facility] 11-10-2023 19:21-0400 Diastolic blood pressure 71 mm[Hg] Dr. Rosa Maria Santacruz Work Phone: [facility] 11-10-2023 19:21-0400 Heart rate 80 /min Dr. Rosa Maria Santacruz Work Phone: [facility] 11-10-2023 19:21-0400 Respiratory rate 16 /min Dr. Rosa Maria Santacruz Work Phone: [facility] 11-10-2023 19:21-0400 SaO2% (BldA) [Mass fraction] 99 % Dr. Rosa Maria Santacruz Work Phone: [facility] 11-10-2023 19:21-0400 Systolic blood pressure 169 mm[Hg] Dr. Rosa Maria Santacruz Work Phone: [facility] 11-10-2023 17:48-0400 Body mass index (BMI) [Ratio] 24.3 kg/m2 Dr. Rosa Maria Santacruz Work Phone: 3(949)560-553478 [place] [address] 11-10-2023 17:48-0400 Body weight 76.[address] Rosa Maria Santacruz Work Phone: 1(914)921-034378 [place] [address] 11-10-2023 16:31-0400 Body height 177.[address] Rosa Maria Santacruz Work Phone: [facility] 11-10-2023 14:17-0400 Body mass index (BMI) [Ratio] 24 kg/m2 Dr. Rosa Maria Santacruz Work Phone: [facility] 11-10-2023 14:17-0400 Body temperature 98.7 [degF] Dr. Rosa Maria Santacruz Work Phone: [facility] 11-10-2023 14:17-0400 Body weight 75.[address] Rosa Maria Santacruz Work Phone: [facility] 11-10-2023 14:17-0400 Diastolic blood pressure 70 mm[Hg] Dr. Rosa Maria Santacruz Work Phone: [facility] 11-10-2023 14:17-0400 Heart rate 56 /min Dr. Rosa Maria Santacruz Work Phone: [facility] 11-10-2023 14:17-0400 Respiratory rate 18 /min Dr. Rosa Maria Santacruz Work Phone: [facility] 11-10-2023 14:17-0400 SaO2% (BldA) [Mass fraction] 97 % Dr. Rosa Maria Santacruz Work Phone: [facility] 11-10-2023 14:17-0400 Systolic blood pressure 160 mm[Hg] Dr. Rosa Maria Santacruz Work Phone: [facility] 09-29-2023 11:31-0400 Body mass index (BMI) [Ratio] 24.7 kg/m2 Dr. Rosa Maria Santacruz Work Phone: 4(671)055-012278 [place] [address] 09-29-2023 11:31-0400 Body weight 78.[address] Rosa Maria Santacruz Work Phone: 5(536)609-228378 [place] [address] 09-29-2023 11:31-0400 Diastolic blood pressure 69 mm[Hg] Dr. Rosa Maria Santacruz Work Phone: [facility] 09-29-2023 11:31-0400 Heart rate 74 /min Dr. Rosa Maria Santacruz Work Phone: [facility] 09-29-2023 11:31-0400 Respiratory rate 18 /min Dr. Rosa Maria Santacruz Work Phone: [facility] 09-29-2023 11:31-0400 SaO2% (BldA) [Mass fraction] 98 % Dr. Rosa Maria Santacruz Work Phone: [facility] 09-29-2023 11:31-0400 Systolic blood pressure 158 mm[Hg] Dr. Rosa Maria Santacruz Work Phone: [facility] 09-10-2023 12:59-0400 Body temperature 96.7 [degF] Dr. Rosa Maria Santacruz Work Phone: 0(430)791-747478 [place] [address] 09-10-2023 12:59-0400 Diastolic blood pressure 65 mm[Hg] Dr. Rosa Maria Santacruz Work Phone: [facility] 09-10-2023 12:59-0400 Heart rate 79 /min Dr. Rosa Maria Santacruz Work Phone: [facility] 09-10-2023 12:59-0400 Respiratory rate 18 /min Dr. Rosa Maria Santacruz Work Phone: [facility] 09-10-2023 12:59-0400 Systolic blood pressure 153 mm[Hg] Dr. Rosa Maria Santacruz Work Phone: [facility] 09-03-2023 13:02-0500 Diastolic blood pressure 60 mm[Hg] Dr. Rosa Maria Santacruz Work Phone: [facility] 09-03-2023 13:02-0500 Heart rate 78 /min Dr. Rosa Maria Santacruz Work Phone: [facility] 09-03-2023 13:02-0500 Respiratory rate 18 /min Dr. Rosa Maria Santacruz Work Phone: [facility] 09-03-2023 13:02-0500 Systolic blood pressure 141 mm[Hg] Dr. Rosa Maria Santacruz Work Phone: [facility] 08-29-2023 00:25-0500 Body temperature 97.3 [degF] Dr. Rosa Maria Santacruz Work Phone: [facility] 08-29-2023 00:25-0500 Inhaled oxygen flow rate 2 L/min Dr. Rosa Maria Santacruz Work Phone: [facility] 08-29-2023 00:25-0500 SaO2% (BldA) [Mass fraction] 100 % Dr. Rosa Maria Santacruz Work Phone: [facility] 08-27-2023 13:01-0500 Body temperature 97.3 [degF] Dr. Paco Norman Work Phone: [facility] 08-27-2023 13:01-0500 Diastolic blood pressure 61 mm[Hg] Dr. Paco Norman Work Phone: [facility] 08-27-2023 13:01-0500 Heart rate 75 /min Dr. Paco Norman Work Phone: [facility] 08-27-2023 13:01-0500 Respiratory rate 18 /min Dr. Paco Norman Work Phone: [facility] 08-27-2023 13:01-0500 Systolic blood pressure 142 mm[Hg] Dr. Paco Norman Work Phone: [facility] 08-20-2023 13:14-0500 Body temperature 97.3 [degF] Dr. Paco Norman Work Phone: [facility] 08-20-2023 13:14-0500 Diastolic blood pressure 63 mm[Hg] Dr. Paco Norman Work Phone: [facility] 08-20-2023 13:14-0500 Heart rate 74 /min Dr. Paco Norman Work Phone: [facility] 08-20-2023 13:14-0500 Respiratory rate 18 /min Dr. Paco Norman Work Phone: [facility] 08-20-2023 13:14-0500 Systolic blood pressure 144 mm[Hg] Dr. Paco Norman Work Phone: [facility] 08-18-2023 13:58-0500 Body height 177.[address] Paco Norman Work Phone: [facility] 08-18-2023 13:58-0500 Body mass index (BMI) [Ratio] 23.7 kg/m2 Dr. Paco Norman Work Phone: [facility] 08-18-2023 13:58-0500 Body temperature 98.7 [degF] Dr. Paco Norman Work Phone: [facility] 08-18-2023 13:58-0500 Body weight 74.[address] Paco Norman Work Phone: [facility] 08-18-2023 13:58-0500 Diastolic blood pressure 64 mm[Hg] Dr. Paco Norman Work Phone: [facility] 08-18-2023 13:58-0500 Heart rate 60 /min Dr. Paco Norman Work Phone: [facility] 08-18-2023 13:58-0500 Respiratory rate 18 /min Dr. Paco Norman Work Phone: [facility] 08-18-2023 13:58-0500 SaO2% (BldA) [Mass fraction] 98 % Dr. Paco Norman Work Phone: [facility] 08-18-2023 13:58-0500 Systolic blood pressure 146 mm[Hg] Dr. Paco Norman Work Phone: [facility] 07-31-2023 00:13-0500 Inhaled oxygen flow rate 2 L/min Dr. Paco Norman Work Phone: [facility] 07-31-2023 00:13-0500 SaO2% (BldA) [Mass fraction] 100 % Dr. Paco Norman Work Phone: [facility] 07-30-2023 14:11-0500 Body temperature 97.4 [degF] Dr. Paco Norman Work Phone: [facility] 07-30-2023 14:11-0500 Diastolic blood pressure 53 mm[Hg] Dr. Paco Norman Work Phone: [facility] 07-30-2023 14:11-0500 Heart rate 73 /min Dr. Paco Norman Work Phone: [facility] 07-30-2023 14:11-0500 Respiratory rate 18 /min Dr. Paco Norman Work Phone: [facility] 07-30-2023 14:11-0500 Systolic blood pressure 123 mm[Hg] Dr. Paco Norman Work Phone: [facility] 07-23-2023 14:09-0500 Inhaled oxygen flow rate 2 L/min Dr. Paco Norman Work Phone: [facility] 07-21-2023 14:50-0500 Diastolic blood pressure 50 mm[Hg] Dr. Paco Norman Work Phone: [facility] 07-21-2023 14:50-0500 Heart rate 62 /min Dr. Paco Norman Work Phone: [facility] 07-21-2023 14:50-0500 Systolic blood pressure 134 mm[Hg] Dr. Paco Norman Work Phone: [facility] 07-21-2023 14:09-0500 Body mass index (BMI) [Ratio] 25.1 kg/m2 Dr. Paco Norman Work Phone: [facility] 07-21-2023 14:09-0500 Body temperature 97.2 [degF] Dr. Paco Norman Work Phone: [facility] 07-21-2023 14:09-0500 Inhaled oxygen flow rate 2 L/min Dr. Paco Norman Work Phone: [facility] 07-21-2023 14:09-0500 Respiratory rate 16 /min Dr. Paco Norman Work Phone: [facility] 07-21-2023 14:09-0500 SaO2% (BldA) [Mass fraction] 99 % Dr. Paco Norman Work Phone: [facility] 07-16-2023 14:26-0500 SaO2% (BldA) [Mass fraction] 100 % Dr. Paco Norman Work Phone: [facility] 07-09-2023 14:08-0500 Body temperature 96.8 [degF] Dr. Paco Norman Work Phone: [facility] 07-09-2023 14:08-0500 Diastolic blood pressure 39 mm[Hg] Dr. Paco Norman Work Phone: [facility] 07-09-2023 14:08-0500 Heart rate 72 /min Dr. Paco Norman Work Phone: [facility] 07-09-2023 14:08-0500 Inhaled oxygen flow rate 2 L/min Dr. Paco Norman Work Phone: [facility] 07-09-2023 14:08-0500 Respiratory rate 18 /min Dr. Paco Norman Work Phone: [facility] 07-09-2023 14:08-0500 SaO2% (BldA) [Mass fraction] 92 % Dr. Paco Norman Work Phone: [facility] 07-09-2023 14:08-0500 Systolic blood pressure 131 mm[Hg] Dr. Paco Norman Work Phone: [facility] 07-07-2023 14:43-0500 Body height 177.[address] Paco Norman Work Phone: [facility] 07-07-2023 14:43-0500 Body mass index (BMI) [Ratio] 25.3 kg/m2 Dr. Paco Norman Work Phone: [facility] 07-07-2023 14:43-0500 Body temperature 98.2 [degF] Dr. Paco Norman Work Phone: [facility] 07-07-2023 14:43-0500 Body weight 80.[address] Paco Norman Work Phone: [facility] 07-07-2023 14:43-0500 Diastolic blood pressure 53 mm[Hg] Dr. Paco Norman Work Phone: [facility] 07-07-2023 14:43-0500 Heart rate 63 /min Dr. Paco Norman Work Phone: [facility] 07-07-2023 14:43-0500 Respiratory rate 18 /min Dr. Paco Norman Work Phone: [facility] 07-07-2023 14:43-0500 SaO2% (BldA) [Mass fraction] 95 % Dr. Paco Norman Work Phone: [facility] 07-07-2023 14:43-0500 Systolic blood pressure 117 mm[Hg] Dr. Paco Norman Work Phone: [facility] 06-25-2023 15:35-0500 Body temperature 97.6 [degF] Dr. Paco Norman Work Phone: [facility] 06-25-2023 15:35-0500 Diastolic blood pressure 61 mm[Hg] Dr. Paco Norman Work Phone: [facility] 06-25-2023 15:35-0500 Heart rate 62 /min Dr. Paco Norman Work Phone: [facility] 06-25-2023 15:35-0500 Inhaled oxygen flow rate 2 L/min Dr. Paoc Norman Work Phone: [facility] 06-25-2023 15:35-0500 Respiratory rate 16 /min Dr. Paco Norman Work Phone: [facility] 06-25-2023 15:35-0500 SaO2% (BldA) [Mass fraction] 97 % Dr. Paco Norman Work Phone: [facility] 06-25-2023 15:35-0500 Systolic blood pressure 155 mm[Hg] Dr. Paco Norman Work Phone: [facility] 06-25-2023 11:54-0500 Body height 177.[address] Paco Norman Work Phone: [facility] 06-25-2023 11:54-0500 Body weight 85.[address] Paco Norman Work Phone: [facility] 06-24-2023 09:54-0500 Body mass index (BMI) [Ratio] 26.9 kg/m2 Dr. Paco Norman Work Phone: [facility] 06-20-2023 07:55-0500 Body temperature 97.6 [degF] Dr. Paco Norman Work Phone: [facility] 06-20-2023 07:55-0500 Diastolic blood pressure 75 mm[Hg] Dr. Paco Norman Work Phone: [facility] 06-20-2023 07:55-0500 Heart rate 44 /min Dr. Paco Norman Work Phone: [facility] 06-20-2023 07:55-0500 Respiratory rate 14 /min Dr. Paco Norman Work Phone: [facility] 06-20-2023 07:55-0500 SaO2% (BldA) [Mass fraction] 99 % Dr. Paco Norman Work Phone: [facility] 06-20-2023 07:55-0500 Systolic blood pressure 125 mm[Hg] Dr. Paco Norman Work Phone: [facility] 06-20-2023 00:43-0500 Body height 177.[address] Paco Norman Work Phone: [facility] 06-20-2023 00:43-0500 Body mass index (BMI) [Ratio] 27.4 kg/m2 Dr. Paco Norman Work Phone: [facility] 06-20-2023 00:43-0500 Body weight 86.[address] Paco Norman Work Phone: [facility] 06-18-2023 13:53-0500 Diastolic blood pressure 66 mm[Hg] Dr. Paco Norman Work Phone: [facility] 06-18-2023 13:53-0500 Heart rate 58 /min Dr. Paco Norman Work Phone: [facility] 06-18-2023 13:53-0500 Respiratory rate 20 /min Dr. Paco Norman Work Phone: [facility] 06-18-2023 13:53-0500 Systolic blood pressure 135 mm[Hg] Dr. Paco Norman Work Phone: [facility] 06-18-2023 11:35-0500 Body temperature 97.8 [degF] Dr. Paco Norman Work Phone: [facility] 06-18-2023 11:35-0500 Body weight 84.[address] Paco Norman Work Phone: [facility] 06-18-2023 11:35-0500 Diastolic blood pressure 55 mm[Hg] Dr. Paco Norman Work Phone: [facility] 06-18-2023 11:35-0500 Heart rate 61 /min Dr. Paco Norman Work Phone: [facility] 06-18-2023 11:35-0500 Respiratory rate 18 /min Dr. Paco Norman Work Phone: [facility] 06-18-2023 11:35-0500 Systolic blood pressure 119 mm[Hg] Dr. Paco Norman Work Phone: [facility] 06-11-2023 11:37-0500 Body temperature 97.1 [degF] Dr. Paco Norman Work Phone: [facility] 06-06-2023 17:06-0500 Diastolic blood pressure 76 mm[Hg] Dr. Paco Norman Work Phone: [facility] 06-06-2023 17:06-0500 Heart rate 60 /min Dr. Paco Norman Work Phone: [facility] 06-06-2023 17:06-0500 Respiratory rate 16 /min Dr. Paco Norman Work Phone: [facility] 06-06-2023 17:06-0500 SaO2% (BldA) [Mass fraction] 92 % Dr. Paco Norman Work Phone: [facility] 06-06-2023 17:06-0500 Systolic blood pressure 158 mm[Hg] Dr. Paco Norman Work Phone: [facility] 06-06-2023 14:01-0500 Body height 180.[address] Paco Norman Work Phone: [facility] 06-06-2023 14:01-0500 Body temperature 97 [degF] Dr. Paco Norman Work Phone: [facility] 06-04-2023 11:30-0500 Body temperature 97 [degF] Dr. Paco Norman Work Phone: [facility] 06-04-2023 11:30-0500 Diastolic blood pressure 62 mm[Hg] Dr. Paco Norman Work Phone: [facility] 06-04-2023 11:30-0500 Heart rate 74 /min Dr. Paco Norman Work Phone: [facility] 06-04-2023 11:30-0500 Respiratory rate 18 /min Dr. Paco Norman Work Phone: [facility] 06-04-2023 11:30-0500 Systolic blood pressure 140 mm[Hg] Dr. Paco Norman Work Phone: [facility] 05-21-2023 13:21-0500 Body temperature 97.2 [degF] Dr. Paco Norman Work Phone: [facility] 05-21-2023 13:21-0500 Diastolic blood pressure 50 mm[Hg] Dr. Paco Norman Work Phone: [facility] 05-21-2023 13:21-0500 Heart rate 57 /min Dr. Paco Norman Work Phone: [facility] 05-21-2023 13:21-0500 Respiratory rate 18 /min Dr. Paco Norman Work Phone: [facility] 05-21-2023 13:21-0500 Systolic blood pressure 143 mm[Hg] Dr. Paco Norman Work Phone: [facility] 05-14-2023 14:28-0500 Body temperature 96.9 [degF] Dr. Rosa Maria Santacruz Work Phone: [facility] 05-14-2023 14:28-0500 Diastolic blood pressure 55 mm[Hg] Dr. Rosa Maria Santacruz Work Phone: [facility] 05-14-2023 14:28-0500 Heart rate 62 /min Dr. Rosa Maria Santacruz Work Phone: [facility] 05-14-2023 14:28-0500 Respiratory rate 16 /min Dr. Rosa Maria Santacruz Work Phone: [facility] 05-14-2023 14:28-0500 Systolic blood pressure 112 mm[Hg] Dr. Rosa Maria Santacruz Work Phone: [facility] 05-08-2023 11:28-0500 Body temperature 98.2 [degF] Dr. Rosa Maria Santacruz Work Phone: [facility] 05-08-2023 11:28-0500 Body weight 81.[address] Rosa Maria Santacruz Work Phone: [facility] 05-08-2023 11:28-0500 Diastolic blood pressure 62 mm[Hg] Dr. Rosa Maria Santacruz Work Phone: [facility] 05-08-2023 11:28-0500 Heart rate 60 /min Dr. Rosa Maria Santacruz Work Phone: [facility] 05-08-2023 11:28-0500 Respiratory rate 16 /min Dr. Rosa Maria Santacruz Work Phone: [facility] 05-08-2023 11:28-0500 SaO2% (BldA) [Mass fraction] 96 % Dr. Rosa Maria Santacruz Work Phone: [facility] 05-08-2023 11:28-0500 Systolic blood pressure 124 mm[Hg] Dr. Rosa Maria Santacruz Work Phone: [facility] 04-23-2023 13:46-0400 Body temperature 96.8 [degF] Dr. Paco Norman Work Phone: [facility] 04-23-2023 13:46-0400 Diastolic blood pressure 49 mm[Hg] Dr. Paco Norman Work Phone: [facility] 04-23-2023 13:46-0400 Heart rate 66 /min Dr. Paco Norman Work Phone: [facility] 04-23-2023 13:46-0400 Respiratory rate 18 /min Dr. Paco Norman Work Phone: [facility] 04-23-2023 13:46-0400 Systolic blood pressure 170 mm[Hg] Dr. Paco Norman Work Phone: [facility] 04-14-2023 14:27-0400 Body height 180.[address] Paco Norman Work Phone: [facility] 04-14-2023 14:27-0400 Body mass index (BMI) [Ratio] 22.6 kg/m2 Dr. Paco Norman Work Phone: [facility] 04-14-2023 14:27-0400 Body temperature 98.7 [degF] Dr. Paco Norman Work Phone: [facility] 04-14-2023 14:27-0400 Body weight 73.[address] Paco Norman Work Phone: [facility] 04-14-2023 14:27-0400 Diastolic blood pressure 68 mm[Hg] Dr. Paco Norman Work Phone: [facility] 04-14-2023 14:27-0400 Heart rate 57 /min Dr. Paco Norman Work Phone: [facility] 04-14-2023 14:27-0400 Respiratory rate 16 /min Dr. Paco Norman Work Phone: [facility] 04-14-2023 14:27-0400 SaO2% (BldA) [Mass fraction] 99 % Dr. Paco Norman Work Phone: [facility] 04-14-2023 14:27-0400 Systolic blood pressure 117 mm[Hg] Dr. Paco Norman Work Phone: [facility] 01-24-2023 14:06-0400 Body height 180.[address] Rosa Maria Santacruz Work Phone: [facility] 01-24-2023 14:06-0400 Body mass index (BMI) [Ratio] 21.4 kg/m2 Dr. Rosa Maria Santacruz Work Phone: [facility] 01-24-2023 14:06-0400 Body weight 69.[address] Rosa Maria Santacruz Work Phone: [facility] 01-24-2023 14:06-0400 Diastolic blood pressure 41 mm[Hg] Dr. Rosa Maria Santacruz Work Phone: [facility] 01-24-2023 14:06-0400 Heart rate 61 /min Dr. Rosa Maria Santacruz Work Phone: [facility] 01-24-2023 14:06-0400 Respiratory rate 18 /min Dr. Rosa Maria Santacruz Work Phone: [facility] 01-24-2023 14:06-0400 SaO2% (BldA) [Mass fraction] 96 % Dr. Rosa Maria Santacruz Work Phone: [facility] 01-24-2023 14:06-0400 Systolic blood pressure 69 mm[Hg] Dr. Rosa Maria Santacruz Work Phone: [facility] 01-22-2023 11:47-0400 Body height 177.8 cm Azucenalinda Hsugatmonika [employer]WORK ADMINISTRATOR.METAL BONDING WORKER Work Phone: [facility] 01-22-2023 11:47-0400 Body weight 75 kg Azucena Fegatelli [employer] NETWORK ADMINISTRATOR.METAL BONDING WORKER Work Phone: [facility] 01-22-2023 11:47-0400 Diastolic blood pressure 51 mm[Hg] Azucena Fegatelli [employer]IDE [employer] NETWORK ADMINISTRATOR.METAL BONDING WORKER Work Phone: [facility] 01-22-2023 11:47-0400 Heart rate 66 /min Azucena Fegatelli [employer] NETWORK ADMINISTRATOR.METAL BONDING WORKER Work Phone: [facility] 01-22-2023 11:47-0400 SaO2% (BldA) [Mass fraction] 98 % Azucena Fegatelli [employer] NETWORK ADMINISTRATOR.METAL BONDING WORKER Work Phone: [facility] 01-22-2023 11:47-0400 Systolic blood pressure 87 mm[Hg] Azucena Fegatelli [employer] NETWORK ADMINISTRATOR.METAL BONDING WORKER Work Phone: [facility] 01-03-2023 09:22-0400 Diastolic blood pressure 96 mm[Hg] Dr. Rosa Maria Santacruz Work Phone: [facility] 01-03-2023 09:22-0400 Systolic blood pressure 166 mm[Hg] Dr. Rosa Maria Santacruz Work Phone: [facility] 01-03-2023 08:47-0400 Heart rate 62 /min Dr. Rosa Maria Santacruz Work Phone: [facility] 01-03-2023 08:47-0400 Respiratory rate 16 /min Dr. Rosa Maria Santacruz Work Phone: [facility] 01-03-2023 08:47-0400 SaO2% (BldA) [Mass fraction] 96 % Dr. Rosa Maria Santacruz Work Phone: 9(924)815-880078 [place] [address] 01-03-2023 06:40-0400 Body height 180.[address] Rosa Maria Santacruz Work Phone: [facility] 01-03-2023 06:40-0400 Body mass index (BMI) [Ratio] 22.3 kg/m2 Dr. Rosa Maria Santacruz Work Phone: [facility] 01-03-2023 06:40-0400 Body temperature 98.6 [degF] Dr. Rosa Maria Santacruz Work Phone: [facility] 01-03-2023 06:40-0400 Body weight 72.[address] Rosa Maria Santacruz Work Phone: [facility] 12-23-2022 09:30-0400 Respiratory rate 16 /min Dr. Rosa Maria Santacruz Work Phone: [facility] 12-23-2022 08:12-0400 Body temperature 98.1 [degF] Dr. Rosa Maria Santacruz Work Phone: [facility] 12-23-2022 08:12-0400 Diastolic blood pressure 51 mm[Hg] Dr. Rosa Maria Santacruz Work Phone: [facility] 12-23-2022 08:12-0400 Heart rate 68 /min Dr. Rosa Maria Santacruz Work Phone: [facility] 12-23-2022 08:12-0400 SaO2% (BldA) [Mass fraction] 94 % Dr. Rosa Maria Santacruz Work Phone: [facility] 12-23-2022 08:12-0400 Systolic blood pressure 113 mm[Hg] Dr. Rosa Maria Santacruz Work Phone: [facility] 12-23-2022 05:49-0400 Body mass index (BMI) [Ratio] 23.3 kg/m2 Dr. Rosa Maria Santacruz Work Phone: [facility] 12-23-2022 05:49-0400 Body weight 75.[address] Rosa Maria Santacruz Work Phone: [facility] 12-23-2022 05:09-0400 Body temperature 98.8 [degF] Dr. Rosa Maria Santacruz Work Phone: [facility] 12-23-2022 05:09-0400 Diastolic blood pressure 57 mm[Hg] Dr. Rosa Maria Santacruz Work Phone: [facility] 12-23-2022 05:09-0400 Heart rate 60 /min Dr. Rosa Maria Santacruz Work Phone: [facility] 12-23-2022 05:09-0400 Respiratory rate 16 /min Dr. Rosa Maria Santacruz Work Phone: [facility] 12-23-2022 05:09-0400 SaO2% (BldA) [Mass fraction] 95 % Dr. Rosa Maria Santacruz Work Phone: [facility] 12-23-2022 05:09-0400 Systolic blood pressure 159 mm[Hg] Dr. Rosa Maria Santacruz Work Phone: [facility] 12-20-2022 17:28-0400 Body temperature 98 [degF] Dr. Rosa Maria Santacruz Work Phone: [facility] 12-20-2022 17:28-0400 Diastolic blood pressure 77 mm[Hg] Dr. Rosa Maria Santacruz Work Phone: [facility] 12-20-2022 17:28-0400 Heart rate 59 /min Dr. Rosa Maria Santacruz Work Phone: [facility] 12-20-2022 17:28-0400 Respiratory rate 16 /min Dr. Rosa Maria Santacruz Work Phone: [facility] 12-20-2022 17:28-0400 SaO2% (BldA) [Mass fraction] 99 % Dr. Rosa Maria Santacruz Work Phone: [facility] 12-20-2022 17:28-0400 Systolic blood pressure 157 mm[Hg] Dr. Rosa Maria Santacruz Work Phone: [facility] 12-20-2022 17:15-0400 Inhaled oxygen flow rate 2 L/min Dr. Rosa Maria Santacruz Work Phone: [facility] 12-20-2022 15:14-0400 Body height 180.[address] Rosa Maria Santacruz Work Phone: [facility] 12-20-2022 15:14-0400 Body mass index (BMI) [Ratio] 55.6 kg/m2 Dr. Rosa Maria Santacruz Work Phone: [facility] 12-20-2022 15:14-0400 Body weight [address] Rosa Maria Santacruz Work Phone: [facility] 12-18-2022 21:12-0400 Diastolic blood pressure 61 mm[Hg] Dr. Rosa Maria Santacruz Work Phone: [facility] 12-18-2022 21:12-0400 Heart rate 66 /min Dr. Rosa Maria Santacruz Work Phone: [facility] 12-18-2022 21:12-0400 Respiratory rate 18 /min Dr. Rosa Maria Santacruz Work Phone: [facility] 12-18-2022 21:12-0400 Systolic blood pressure 167 mm[Hg] Dr. Rosa Maria Santacruz Work Phone: [facility] 12-18-2022 17:05-0400 Body mass index (BMI) [Ratio] 23.7 kg/m2 Dr. Rosa Maria Santacruz Work Phone: [facility] 12-18-2022 17:05-0400 Body weight 75.[address] Rosa Maria Santacruz Work Phone: [facility] 12-18-2022 14:41-0400 Body height 177.[address] Rosa Maria Santacruz Work Phone: [facility] 12-18-2022 14:05-0400 Body temperature 97.2 [degF] Dr. Rosa Maria Santacruz Work Phone: [facility] 12-18-2022 14:05-0400 Diastolic blood pressure 52 mm[Hg] Dr. Rosa Maria Santacruz Work Phone: [facility] 12-18-2022 14:05-0400 Heart rate 62 /min Dr. Rosa Maria Santacruz Work Phone: [facility] 12-18-2022 14:05-0400 Respiratory rate 16 /min Dr. Rosa Maria Santacruz Work Phone: [facility] 12-18-2022 14:05-0400 Systolic blood pressure 122 mm[Hg] Dr. Rosa Maria Santacruz Work Phone: [facility] 12-18-2022 12:05-0400 SaO2% (BldA) [Mass fraction] 97 % Dr. Rosa Maria Santacruz Work Phone: [facility] 12-03-2022 15:45-0400 Body temperature 98.9 [degF] Dr. Rosa Maria Santacruz Work Phone: [facility] 12-03-2022 15:45-0400 Diastolic blood pressure 58 mm[Hg] Dr. Rosa Maria Santacruz Work Phone: [facility] 12-03-2022 15:45-0400 Heart rate 72 /min Dr. Rosa Maria Santacruz Work Phone: [facility] 12-03-2022 15:45-0400 Respiratory rate 16 /min Dr. Rosa Maria Santacruz Work Phone: [facility] 12-03-2022 15:45-0400 SaO2% (BldA) [Mass fraction] 97 % Dr. Rosa Maria Santacruz Work Phone: [facility] 12-03-2022 15:45-0400 Systolic blood pressure 116 mm[Hg] Dr. Rosa Maria Santacruz Work Phone: 0(948)691-673632 [address] 12-03-2022 03:48-0400 Body mass index (BMI) [Ratio] 25.4 kg/m2 Dr. Rosa Maria Santacruz Work Phone: 1(297)974-554278 [place] [address] 12-03-2022 03:48-0400 Body weight 80.[address] Rosa Maria Santacruz Work Phone: 9(981)686-855828 [place] [address] 11-29-2022 15:01-0400 Body height 177.[address] Rosa Maria Santacruz Work Phone: 6(177)303-946532 [address] 11-29-2022 04:00-0400 Diastolic blood pressure 53 mm[Hg] Dr. Rosa Maria Santacruz Work Phone: 9(605)596-568378 [place] [address] 11-29-2022 04:00-0400 Heart rate 59 /min Dr. Rosa Maria Santacruz Work Phone: 9(260)068-018532 [address] 11-29-2022 04:00-0400 Respiratory rate 16 /min Dr. Rosa Maria Santacruz Work Phone: 8(905)247-068378 [place] [address] 11-29-2022 04:00-0400 SaO2% (BldA) [Mass fraction] 96 % Dr. Rosa Maria Santacruz Work Phone: [facility] 11-29-2022 04:00-0400 Systolic blood pressure 125 mm[Hg] Dr. Rosa Maria Santacruz Work Phone: 1(773)552-222778 [place] [address] 11-29-2022 03:00-0400 Body temperature 100.8 [degF] Dr. Rosa Maria Santacruz Work Phone: 8(545)292-181778 [place] [address] 11-29-2022 01:38-0400 Body height 180.[address] Rosa Maria Santacruz Work Phone: 6(193)842-453878 [place] [address] 11-29-2022 01:38-0400 Body mass index (BMI) [Ratio] 25.1 kg/m2 Dr. Rosa Maria Santacruz Work Phone: [facility] 11-29-2022 01:38-0400 Body weight 81.[address] Rosa Maria Santacruz Work Phone: [facility] 10-17-2022 10:03-0400 Body height 180.[address] Rosa Maria Santacruz Work Phone: [facility] 10-17-2022 10:03-0400 Body mass index (BMI) [Ratio] 25.2 kg/m2 Dr. Rosa Maria Santacruz Work Phone: 0(336)217-481032 [address] 10-17-2022 10:03-0400 Body weight 82.[address] Rosa Maria Santacruz Work Phone: 9(837)547-690932 [address] 10-17-2022 10:03-0400 Diastolic blood pressure 67 mm[Hg] Dr. Rosa Maria Santacruz Work Phone: 4(914)182-072178 [place] [address] 10-17-2022 10:03-0400 Heart rate 58 /min Dr. Rosa Maria Santacruz Work Phone: 3(447)074-044932 [address] 10-17-2022 10:03-0400 Respiratory rate 18 /min Dr. Rosa Maria Santacruz Work Phone: 3(076)649-823078 [place] [address] 10-17-2022 10:03-0400 SaO2% (BldA) [Mass fraction] 95 % Dr. Rosa Maria Santacruz Work Phone: [facility] 10-17-2022 10:03-0400 Systolic blood pressure 163 mm[Hg] Dr. Rosa Maria Santacruz Work Phone: 9(710)478-763778 [place] [address] 06-20-2022 13:15-0500 Body height 180.[address] Rosa Maria Santacruz Work Phone: 0(899)213-600978 [place] [address] 06-20-2022 13:15-0500 Body mass index (BMI) [Ratio] 24.8 kg/m2 Dr. Rosa Maria Santacruz Work Phone: [facility] 06-20-2022 13:15-0500 Body weight 80.[address] Rosa Maria Santacruz Work Phone: [facility] 06-20-2022 13:15-0500 Diastolic blood pressure 70 mm[Hg] Dr. Rosa Maria Santacruz Work Phone: [facility] 06-20-2022 13:15-0500 Heart rate 56 /min Dr. Rosa Maria Santacruz Work Phone: [facility] 06-20-2022 13:15-0500 Systolic blood pressure 148 mm[Hg] Dr. Rosa Maria Santacruz Work Phone: [facility] 06-05-2022 11:08-0500 Body mass index (BMI) [Ratio] 24.1 kg/m2 Dr. Rosa Maria Santacruz Work Phone: 8(313)608-906278 [place] [address] 06-05-2022 11:08-0500 Body weight 78.[address] Rosa Maria Santacruz Work Phone: [facility] 06-05-2022 11:08-0500 Diastolic blood pressure 78 mm[Hg] Dr. Rosa Maria Santacruz Work Phone: [facility] 06-05-2022 11:08-0500 Heart rate 50 /min Dr. Rosa Maria Santacruz Work Phone: [facility] 06-05-2022 11:08-0500 Respiratory rate 20 /min Dr. Rosa Maria Santacruz Work Phone: [facility] 06-05-2022 11:08-0500 SaO2% (BldA) [Mass fraction] 98 % Dr. Rosa Maria Santacruz Work Phone: [facility] 06-05-2022 11:08-0500 Systolic blood pressure 199 mm[Hg] Dr. Rosa Maria Santacruz Work Phone: [facility] 05-20-2022 19:39-0500 Diastolic blood pressure 72 mm[Hg] Dr. Rosa Maria Santacruz Work Phone: [facility] 05-20-2022 19:39-0500 Heart rate 56 /min Dr. Rosa Maria Santacruz Work Phone: [facility] 05-20-2022 19:39-0500 Respiratory rate 25 /min Dr. Rosa Maria Santacruz Work Phone: [facility] 05-20-2022 19:39-0500 SaO2% (BldA) [Mass fraction] 97 % Dr. Rosa Maria Santacruz Work Phone: [facility] 05-20-2022 19:39-0500 Systolic blood pressure 222 mm[Hg] Dr. Rosa Maria Santacruz Work Phone: [facility] 05-20-2022 15:23-0500 Body mass index (BMI) [Ratio] 25.1 kg/m2 Dr. Rosa Maria Santacruz Work Phone: [facility] 05-20-2022 15:23-0500 Body temperature 97.1 [degF] Dr. Rosa Maria Santacruz Work Phone: [facility] 05-20-2022 15:23-0500 Body weight 81.[address] Rosa Maria Santacruz Work Phone: [facility] 04-03-2022 13:35-0400 Body height 180.[address] Rosa Maria Santacruz Work Phone: [facility] Work Phone: 04-03-2022 13:30-0400 Body mass index (BMI) [Ratio] 25.1 kg/m2 Dr. Rosa Maria Santacruz Work Phone: [facility] Work Phone: 04-03-2022 13:30-0400 Body temperature 98.3 [degF] Dr. Rosa Maria Santacruz Work Phone: [facility] Work Phone: 04-03-2022 13:30-0400 Body weight 81.[address] Rosa Maria Santacruz Work Phone: [facility] Work Phone: 04-03-2022 13:30-0400 Diastolic blood pressure 78 mm[Hg] Dr. Rosa Maria Santacruz Work Phone: [facility] Work Phone: 04-03-2022 13:30-0400 Heart rate 56 /min Dr. Rosa Maria Santacruz Work Phone: [facility] Work Phone: 04-03-2022 13:30-0400 Respiratory rate 16 /min Dr. Rosa Maria Santacruz Work Phone: [facility] Work Phone: 04-03-2022 13:30-0400 SaO2% (BldA) [Mass fraction] 98 % Dr. Rosa Maria Santacruz Work Phone: [facility] Work Phone: 04-03-2022 13:30-0400 Systolic blood pressure 162 mm[Hg] Dr. Rosa Maria Santacruz Work Phone: [facility] Work Phone: 10-07-2020 12:36-0400 Body Temperature 97.7 [degF] Roman Rob KELLY Work Phone: 10-07-2020 12:36-0400 BP Diastolic 54 mm[Hg] Roman KELLY Work Phone: 10-07-2020 12:36-0400 BP Systolic 121 mm[Hg] Roman Rob KELLY Work Phone: 10-07-2020 12:36-0400 Pulse (Heart Rate) 71 /min Roman KELLY Work Phone: 10-07-2020 12:36-0400 Pulse Oximetry 97 % Roman Rob KELLY Work Phone: 10-07-2020 12:36-0400 Respiratory Rate 18 /min Roman Rob LETICIA Work Phone: 10-06-2020 06:00-0400 BMI (Body Mass Index) 24.6 kg/m2 Romanyuriy KELLY Work Phone: 10-06-2020 06:00-0400 Body weight [...] Date Encounter Type Care Provider Facility Start: 05-12-2025 ambulatory Paco ANTONIO Facility:[facility] Start: 05-11-2025 End: 05-11-2025 Emergency department patient visit Leo Shen Facility:[facility] Start: 05-11-2025 ambulatory Paco ANTONOI Facility:[facility] Start: 05-06-2025 ambulatory Honey han OLS Facility:[facility] Start: 05-04-2025 ambulatory Paco Shaquille he OLS Facility:[facility] Start: 04-26-2025 ambulatory Odette Harman Facility:[facility] Start: 04-26-2025 ambulatory Oniel Moulton Facility: [facility] Start: 04-26-2025 End: 05-03-2025 Evaluation and management of inpatient Vicente Cortez Facility:[facility] Start: 03-03-2025 End: 03-03-[address] Rosa Maria Santacruz MD Work Phone: -[facility] Start: 03-03-2025 End: 03-03-2025 Dr. Mathieu Mcintyre MD -[facility] Work Phone: Start: 02-23-2025 End: 02-23-2025 Admission to same day surgery center Dr. Singh Amaya MD -Manufacturing Sr Engineer/Special Procedures Work Phone: Start: 02-23-2025 End: 02-23-2025 Dr. Singh Amaya MD -Manufacturing Sr Engineer/Special Procedures Work Phone: Start: 02-23-2025 End: 02-23-[address] Rosa Maria Santacruz MD Work Phone: -[employer]uring Sr Engineer/Special Procedures Start: 02-15-2025 End: 02-15-[address] Rosa Maria Santacruz MD Work Phone: -[facility] Start: 02-15-2025 End: 02-15-[address] Jakob Flower MD -[facility] Work Phone: Start: 02-15-2025 End: 02-15-2025 Dr. Jakob Flower MD -[facility] Work Phone: Start: 02-15-2025 End: 02-15-2025 ambulatory Singh Amaya Facility:[facility] Start: 01-10-2025 [facility] Start[facility] 12-27-[facility]24 ambulatory Aurelia Chasidy [facility]ity:[facility] Start: 12-27-2024 Non-patient / Non-visit Dr. Jena Umaña MD -[facility] Start: 12-27-2024 Dr. Aurelia Umaña MD -[facility] Start: 12-27-2024 End: 12-27-2024 Admission to same day surgery center Dr. Aurelia Umaña [facility] Start: 12-27-2024 End: 12-27-2024 Dr. Aurelia Umaña MD [facility] Start: 12-27-2024 End: 12-27-[address] Rosa Maria Santacruz MD Work Phone: -[facility] Start: 12-16-2024 End: 12-16-2024 ambulatory Aurelia Umaña Facility:[facility] Start: 12-16-2024 End: 12-16-2024 Non-patient / Non-visit Dr. Raquel Luevano MD -[facility] Work Phone: Start: 12-16-2024 End: 12-16-2024 Dr. Raquel Luevano MD -[facility] Work Phone: Start: 12-10-2024 End: 12-10-[address] Aurelia Umaña MD -[facility] Work Phone: Start: 12-10-2024 End: 12-10-2024 Dr. Aurelia Umaña MD -[facility] Work Phone: Start: 12-10-2024 End: 12-10-[address] Rosa Maria Santacruz MD Work Phone: [facility] Work Phone: Start: 12-06-2024 End: 12-06-[address] Rosa Maria Santacruz MD Work Phone: [facility] Work Phone: Start: 12-06-2024 End: 12-06-[address] Jakob Flower MD -[facility] Work Phone: Start: 12-06-2024 End: 12-06-2024 Dr. Jakob Flower MD -[facility] Work Phone: Start: 12-06-2024 End: 12-06-2024 ambulatory [facility] [facility] Start: 11-29-2024 End: 11-29-[address] Rosa Maria Santacruz MD Work Phone: [facility] Work Phone: Start: 11-29-2024 End: 11-29-[address] Jakob Flower MD -Laboratory [place] Work Phone: Start: 11-29-2024 End: 11-29-2024 Dr. Jakob Flower MD -[facility] [place] Work Phone: Start: 11-29-2024 End: 11-29-2024 ambulatory [facility] Facility:[facility] Start: 11-18-2024 End: 11-18-[address] Rosa Maria Santacruz MD Work Phone: [facility] Work Phone: Start: 11-18-2024 End: 11-18-[address] Singh Amaya MD -Cat Scan [facility] Work Phone: Start: 11-18-2024 End: 11-18-2024 Dr. Singh Amaya MD -Cat Scan [facility] Work Phone: Start: 11-18-2024 End: 11-18-2024 ambulatory Singh Amaya [facility] Start: 11-08-2024 End: 11-08-2024 Dr. Frederick Roberts MD -Emergency Department Work Phone: Start: 11-08-2024 End: 11-08-2024 Emergency department patient visit Dr. Rosa Maria Santacruz MD Work Phone: -Emergency Department Work Phone: Start: 11-08-2024 End: 11-08-[address] Mathieu Mcintyre MD -[facility] Work Phone: Start: 11-08-2024 End: 11-08-2024 ambulatory Mathieu Mcintyre Facility:[facility] Start: 11-08-[address] Mathieu Mcintyre MD -[facility] Start: 11-08-2024 End: 11-08-2024 Dr. Mathieu Mcintyre MD -[facility] Work Phone: Start: 10-06-2024 End: 10-06-[address] Rosa Maria Santacruz MD Work Phone: [facility] Work Phone: Start: 10-06-2024 End: 10-06-[address] Singh Amaya MD -Cardiovascular Services Work Phone: Start: 10-06-2024 End: 10-06-2024 Dr. Singh Amaya MD -Cardiovascular Services Work Phone: Start: 10-06-2024 End: 10-06-2024 ambulatory Singh Amaya Facility:[facility] Start: 10-01-2024 End: 10-01-2024 Patient encounter procedure Dayne ARITA -[facility] Work Phone: Start: 10-01-2024 End: 10-01-2024 Dayne ARITA -[facility] Work Phone: Start: 10-01-2024 End: 10-01-2024 ambulatory Rosa Maria Santacruz Facility:[facility] Start: 09-14-2024 End: 09-14-[address] Rosa Maria Santacruz MD Work Phone: [facility] Work Phone: Start: 09-14-2024 End: 09-14-[address] [facility] Start: 09-14-2024 End: 09-14-2024 Dr. Rosa Maria Santacruz MD -[facility] [place] Work Phone: Start: 09-14-2024 End: 09-14-2024 ambulatory Rosa Maria Santacruz Facility:[facility] Start: 11-10-2023 End: 11-10-2023 Emergency department patient visit Dr. Rosa Maria Santacruz Work Phone: [facility]-Emergency Department Work Phone: Start: 11-10-2023 End: 11-10-[address] Rosa Maria Santacruz Work Phone: [facility] Work Phone: Start: 11-10-[address] Rosa Maria faria Work Phone: [facility] Start: 09-29-2023 End: 09-29-[address] Rosa Maria Santacruz Work Phone: [facility] Work Phone: Start: 09-10-2023 End: 09-11-[address] Rosa Maria Santacruz Work Phone: [facility] Work Phone: Start: 09-10-2023 End: 09-11-[address] Rosa Maria Santacruz [facility] Work Phone: Start: 09-10-2023 End: 09-11-2023 Dr. Rosa Maria Santacruz Work Phone: [facility] Work Phone: Start: 09-03-2023 Dr. Rosa Maria leblanc Work Phone: [facility] Work Phone: Start: 09-03-2023 End: 09-03-[address] Rosa Maria Santacruz Work Phone: [facility] Work Phone: Start: 09-03-2023 End: 09-03-[address] Rosa Maria Santacruz Work Phone: [facility] Work Phone: Start: 09-03-2023 End: 09-03-2023 Dr. Rosa Maria Santacruz Work Phone: [facility] Work Phone: Start: 08-27-2023 End: 08-28-[address] Paco Norman Work Phone: [facility] Work Phone: Start: 08-27-2023 End: 08-28-[address] Rosa Maria Santacruz Work Phone: [facility] Work Phone: Start: 08-27-2023 End: 08-28-2023 Dr. Paco Norman Work Phone: [facility] Work Phone: Start: 08-25-2023 End: 08-25-[address] Rosa Maria Santacruz Work Phone: [facility] Work Phone: Start: 08-25-2023 End: 08-25-2023 Dr. Paco Norman Work Phone: [facility] Work Phone: Start: 08-20-2023 Dr. Paco Norman Work Phone: [facility] Work Phone: Start: 08-19-2023 End: 08-19-[address] Paco Norman Work Phone: [facility] Work Phone: Start: 08-19-2023 End: 08-19-[address] Rosa Maria Santacruz [facility] Start: 08-19-2023 End: 08-19-2023 Dr. Paco Norman [facility] Start: 08-18-2023 End: 08-18-[address] Rosa Maria Santacruz Work Phone: [facility] Work Phone: Start: 08-18-2023 End: 08-18-2023 Dr. Paco Norman Work Phone: [facility] Work Phone: Start: 07-30-2023 End: 07-30-[address] Rosa Maria Santacruz Work Phone: [facility] Work Phone: Start: 07-30-2023 End: 07-30-2023 Dr. Paco Norman Work Phone: [facility] Work Phone: Start: 07-11-2023 Dr. Rosa Maria leblanc [facility]: [facility] Work [facility]: Start: 07-11-2023 Dr. Rosa Maria leblanc Work Phone: [facility] Work Phone: Start: 07-09-2023 Dr. Paco Norman Work Phone: [facility] Work Phone: Start: 07-08-2023 End: 07-08-[address] Paco Norman Work Phone: [facility] Work Phone: Start: 07-08-2023 End: 07-08-2023 Dr. Paco Norman [facility] Start: 07-07-2023 End: 07-07-2023 Dr. Paco Norman Work Phone: [facility] Work Phone: Start: 07-07-2023 Dr. Paco Norman Work Phone: [facility] Start: 07-04-2023 ambulatory NONE PHYSICIAN Facility :R Start: 06-25-2023 Dr. Paco Norman Work Phone: [facility] Work Phone: Start: 06-25-2023 Dr. Paco Norman Work Phone: [facility] Start: 06-24-2023 Dr. Paco Norman Work Phone: [facility] Start: 06-24-2023 Dr. Paco Norman Work Phone: [facility] Start: 06-23-2023 Dr. Paco Norman Work Phone: [facility] Start: 06-23-2023 Dr. Paco Norman Work Phone: [facility] Start: 06-22-2023 Dr. Paco Norman Work Phone: [facility] Work Phone: Start: 06-22-2023 Dr. Paco Norman Work Phone: [facility] Start: 06-21-2023 Dr. Paco Norman Work Phone: [facility] Work Phone: Start: 06-20-2023 Dr. Paco Norman Work Phone: [facility] Start: 06-20-2023 End: 06-25-2023 Evaluation and management of inpatient Dr. Paco Norman Work Phone: [facility] Work Phone: Start: 06-20-2023 End: 06-25-2023 Dr. Paco Norman Work Phone: [facility]-Progressive Care Unit Work Phone: Start: 06-18-2023 End: 06-29-[address] Paco Norman Work Phone: [facility] Work Phone: Start: 06-18-2023 End: 06-29-2023 Dr. Paco Norman [facility]: [facility] Work Phone: Start: 06-18-2023 End: 06-18-2023 Dr. Paco Norman Work Phone: [facility] V[facility] Surgery Work Phone: Start: 06-06-2023 End: 06-06-2023 Emergency department patient visit Dr. Paco Norman Work Phone: [facility]-Emergency Department Work Phone: Start: 06-06-2023 End: 06-06-2023 Dr. Paco Norman Work Phone: [facility]-Emergency Department Work Phone: Start: 06-04-[address] Krishan Norman [facility]: [facility] Work Phone: Start: 05-21-2023 End: 05-29-[address] Paco Norman Work Phone: [facility] Work Phone: Start: 05-21-2023 End: 05-29-[address] Paco Norman Work Phone: [facility] Work Phone: Start: 05-21-2023 End: 05-29-2023 Dr. Paco Norman Work Phone: [facility] Work Phone: Start: 05-15-2023 Non-patient / Non-visit Dr. Jelena Norman Work Phone: [facility] Start: 05-15-2023 End: 05-15-[address] Rosa Maria Santacruz Work Phone: [facility] Work Phone: Start: 05-15-2023 End: 05-15-[address] Paco Norman [facility] Phone[facility] Work Phone: Start: 05-15-2023 End: 05-15-2023 Dr. Rosa Maria Santacruz Work Phone: [facility] Start: 05-14-2023 Dr. Rosa Maria leblanc Work Phone: [facility] Work Phone: Start: 05-08-2023 End: 05-08-[address] Paco Norman Work Phone: [facility] V[facility] Surgery Work Phone: Start: 05-08-2023 End: 05-08-2023 Dr. Rosa Maria Santacruz Work Phone: [facility] V[facility] Work Phone: Start: 04-23-2023 End: 04-29-[address] Paco Norman Work Phone: [facility] Work Phone: Start: 04-23-2023 End: 04-29-[address] Paco Norman Work Phone: [facility] Work Phone: Start: 04-23-2023 End: 04-29-2023 Dr. Paco Norman Work Phone: [facility] Work Phone: Start: 04-14-2023 End: 04-14-[address] Paco Norman Work Phone: [facility] Work Phone: Start: 04-14-2023 End: 04-14-2023 Dr. Paco Norman Work Phone: [facility] Work Phone: Start: 03-26-[address] Brock Norman Work Phone: [facility] Start: 03-26-2023 Dr. Paco Norman Work Phone: [facility] Start: 03-25-[address] Brock Norman Work Phone: [facility] Start: 03-25-2023 Dr. Paco Norman Work Phone: [facility] Start: 03-19-[address] Brock Norman Work Phone: [facility] Start: 03-19-2023 Dr. Paco Norman Work Phone: [facility] Start: 03-12-[address] Brock Norman Work Phone: [facility] Start: 03-12-2023 Dr. Paco Norman Work Phone: [facility] Start: 03-05-[address] Brock Norman Work Phone: [facility] Start: 03-05-2023 Dr[facility] Start: 02-26-[address] [facility] Start: 02-26-2023 Dr. Pac[facility] Start: 02-19-[address] Brock [facility] Start: 02-19-2023 Dr. Rosa Maria leblanc [facility] Start: 02-12-[address] Brock [facility] Start: 02-12-2023 Dr. Rosa [facility]blanc [facility] Start: 02-05-2023 Dr. Rosa Maria leblanc Work Phone: [facility] Start: 01-30-2023 End: 01-30-[address] Rosa Maria Santacruz Work Phone: [facility] Work Phone: Start: 01-30-2023 End: 01-30-2023 Dr. Rosa Maria Santacruz Work Phone: [facility] Start: 01-29-2023 Dr. Rosa Maria leblanc Work Phone: [facility] Start: 01-24-2023 End: 01-24-2023 Dr. 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) [S06.31AA] Start: 01-15-2023 Dr. Rosa Maria leblanc Work Phone: [facility] Start: 01-13-2023 Telephone encounter Errol Rosenberg MD Work Phone: [facility] Comment on above: Contact Center Call Start: 01-13-2023 Dr. Rosa Maria leblanc Work Phone: [facility] Start: 01-10-2023 End: 01-10-[address] Rosa Maria Santacruz Work Phone: [facility] Work Phone: Start: 01-10-2023 End: 01-10-2023 Dr. Rosa Maria Santacruz Work Phone: [facility] Work Phone: Start: 01-03-2023 End: 01-09-2023 Evaluation and management of inpatient ELIDA BORGES Facility:[facility] Start: 01-03-2023 End: 01-03-2023 Emergency department patient visit Dr. Rosa Maria Santacruz Work Phone: [facility] Work Phone: Start: 01-03-2023 End: 01-03-2023 Dr. Rosa Maria Santacruz Work Phone: [facility]-Emergency Department Work Phone: Start: 01-01-2023 End: 01-01-[address] Rosa Maria Santacruz Work Phone: [facility] Work Phone: Start: 01-01-2023 End: 01-01-2023 Dr. Rosa Maria Santacruz Work Phone: [facility] Start: 12-31-2022 End: 12-31-2022 Dr. Rosa Maria Santacruz Work Phone: [facility] Work Phone: Start: 12-24-[address] Rosa Maria bourgeois Work Phone: [facility] Start: 12-24-2022 End: 12-24-2022 Dr. Rosa Maria Santacruz Work Phone: [facility] Start: 12-23-2022 End: 12-23-2022 Dr. Rosa Maria Santacruz Work Phone: [facility] Work Phone: Start: 12-22-2022 End: 12-22-[address] Rosa Maria Santacruz Work Phone: [facility] Work Phone: Start: 12-22-2022 End: 12-22-[address] Rosa Maria Santacruz Work Phone: [facility] Start: 12-22-2022 End: 12-22-2022 Dr. Rosa Maria Santacruz Work Phone: [facility] Work Phone: Start: 12-20-2022 Non-patient / Non-visit Dr. Crissy Santacruz Work Phone: [facility] Start: 12-20-2022 Dr. Rosa Maria leblanc Work Phone: [facility] Start: 12-20-2022 End: 12-20-2022 Admission to same day surgery center Dr. Rosa Maria Santacruz Work Phone: [facility]-Endoscopy Start: 12-20-2022 End: 03-03-[address] Rosa Maria Santacruz Work Phone: [facility] Work Phone: Start: 12-20-2022 End: 12-20-2022 Dr. Rosa Maria Santacruz Work Phone: [facility]-Endoscopy Work Phone: Start: 12-19-2022 Non-patient / Non-visit Dr. Crissy Santacruz Work Phone: [facility] Start: 12-19-2022 Dr. Rosa Maria leblanc Work Phone: [facility] Start: 12-18-2022 End: 12-18-[address] Rosa Maria Santacruz Work Phone: [facility] Work Phone: Start: 12-18-2022 End: 12-18-[address] Rosa Maria Santacruz Work Phone: [facility]-Medical Out Start: 12-18-2022 End: 12-18-2022 Dr. Rosa Maria [facility]acruz [facility] Start: 12-03-2022 End: 12-23-2022 Evaluation and management of inpatient Dr. Rosa Maria Santacruz [facility] Start: 12-03-2022 End: 12-23-2022 Dr. Rosa Maria Santacruz [facility] Start: 12-03-2022 Non-patient / Non-visit Dr. Crissy Santacruz Work Phone: [facility] Start: 12-03-2022 Dr. Rosa Maria leblanc Work Phone: [facility] Work Phone: Start: 12-02-2022 Non-patient / Non-visit Dr. Crissy Santacruz Work Phone: [facility] Start: 12-02-2022 Dr. Rosa Maria leblanc Work Phone: [facility] Work Phone: Start: 12-01-2022 Non-patient / Non-visit Dr. Crissy Santacruz Work Phone: [facility] Start: 12-01-2022 Dr. Rosa Maria leblanc Work Phone: [facility] Work Phone: Start: 11-30-2022 Non-patient / Non-visit Dr. Crissy Santacruz Work Phone: [facility] Start: 11-30-2022 Dr. Rosa Maria leblanc Work Phone: [facility] Work Phone: Start: 11-29-2022 Non-patient / Non-visit Dr. Crissy Santacruz Work Phone: [facility] Start: 11-29-2022 Dr. Rosa Maria leblanc Work Phone: [facility] Start: 11-29-2022 Non-patient / Non-visit Dr. Crissy Santacruz Work Phone: [facility] Start: 11-29-2022 End: 12-03-2022 Evaluation and management of inpatient Dr. Rosa Maria Santacruz [facility] Start: 11-29-2022 End: 12-03-2022 Dr. Rosa Maria Santacruz [facility] Work [facility]: Start: 10-17-2022 End: 10-17-[address] Rosa Maria Santacruz Work Phone: [facility] Work Phone: Start: 10-17-2022 End: 10-17-[address] Rosa Maria Santacruz Work Phone: [facility] Start: 10-17-2022 End: 10-17-2022 Dr. Rosa Maria Santacruz Work Phone: [facility] Work Phone: Start: 10-17-2022 End: 10-17-[address] Rosa Maria Santacruz Work Phone: [facility] Start: 10-17-2022 End: 10-17-2022 Dr. Rosa Maria Santacruz Work Phone: [facility] Work Phone: Start: 08-23-2022 End: 08-23-[address] Rosa Maria Santacruz Work Phone: [facility] Work Phone: Start: 08-23-2022 End: 08-23-[address] Rosa Maria Santacruz Work Phone: [facility] Start: 06-20-2022 End: 06-20-[address] Rosa Maria Santacruz Work Phone: [facility] Start: 06-05-2022 End: 06-05-[address] Rosa Maria Santacruz Work Phone: [facility] Start: 05-20-2022 End: 05-20-2022 Emergency department patient visit Dr. Rosa Maria Santacruz Work Phone: [facility]-Emergency Department Start: 04-16-2022 End: 04-16-[address] Rosa Maria Santacruz Work Phone: [facility] Work Phone: Start: 04-16-2022 End: 04-16-[address] Rosa Maria Santacruz [facility] Start: 04-03-2022 End: 04-03-[address] Rosa Maria Santacruz Work Phone: [facility] Start: 03-27-[address] Rosa Maria faria Work Phone: [facility] Start: 10-02-2020 End: 10-07-2020 Evaluation and management of inpatient Roman Rivas Work Phone: 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 Rosa Maria Santacruz MD Work Phone: Start: 03-03-[address] Rosa Maria faria MD Work Phone: Start: 03-03-2025 Mean corpuscular hemoglobin concentration determination Dr. Rosa Maria Santacruz MD Work Phone: Start: 03-03-2025 Nucleated red blood cell count procedure Dr. Rosa Maria Santacruz MD Work Phone: Start: 03-03-2025 Platelet mean volume determination Dr. Rosa Maria Santacruz MD Work Phone: Start: 03-03-2025 Serum inorganic phosphate measurement Dr. Rosa Maria Santacruz MD Work Phone: Start: 03-03-2025 Total iron binding capacity measurement Dr. Rosa Maria Santacruz MD Work Phone: Start: 02-15-2025 Mean corpuscular hemoglobin concentration determination Dr. Rosa Maria Santacruz MD Work Phone: Start: 02-15-2025 Platelet mean volume determination Dr. Rosa Maria Santacruz MD Work Phone: Start: 12-27-2024 Lap Robotic Inguinal Hernia (Left) Dr. Rosa Maria Santacruz MD Work Phone: Start: 12-16-2024 Calculation of international normalized ratio Dr. Rosa Maria Santacruz MD Work Phone: Start: 11-29-2024 Urine microalbumin/creatinine ratio measurement Dr. Rosa Maria Santacruz MD Work Phone: Comment on above: Previous reported result: 1639.6 mg/g CR EEdited by: ROLANDTE on 12/21/24:1117 AMENDED REPORT 12/21/24 1117 MALB:CREAT [...] Ct head/brain w/o contrast material Sergio Sofia WIDE [employer]A NETWORK ADMINISTRATOR.METAL BONDING WORKER Work Phone: Start: 01-06-2023 Antibody screen ELIDA BORGES Comment on above: Order Comment: Specimen Type: BLOOD SPEC IMEN Ordering Facility: [facility] Address: [address] [place] [address] Performed By: #### T SCR #### [facility] CLIA [id number] [address] [place] [address] OF [facility] Start: 01-04-2023 History of coronary artery bypass grafting S/P CABG (coronary artery bypass graft) Azucena Vo WIDE AREA NETWORK ADMINISTRATOR.METAL BONDING WORKER Work Phone: Start: 01-03-2023 CT cervical spine [...] 10-07-2020 Radiologic exam chest single view Kassandra A ziken Work Phone: Start: 10-07-2020 Assay of magnesium Russell Aden Work Phone: Start: 10-07-2020 Basic metabolic panel calcium total Russell Aden Work Phone: Start: 10-07-2020 Natriuretic peptide Russell Aden Work Phone: Start: 10-06-2020 Radiologic exam chest single view Kassandra A zizaki Work Phone: Start: 10-06-2020 [facility] Work Phone: Start: 10-06-2020 Creatinine other source [facility] Gianfrancoita l Work Phone: Start: 10-06-2020 EOSINOPHILS, URINE [facility] Work Phone: Start: 10-06-2020 Albumin serum plasma/whole blood [facility] Work Phone: Start: 10-06-2020 Assay of magnesium Russell Aden Work Phone: Start: 10-06-2020 [facility]: Start: 10-06-2020 Basic metabolic panel calcium total Russell Aden Work Phone: Start: 10-05-2020 Ecg routine ecg w/least 12 lds w/i&r Macrina Alcazar Work Phone: Start: 10-05-2020 Heart Transesophageal Zeina Gonzalez Work Phone: Start: 10-05-2020 Catheterization and angiography procedure details panel Zeina Gonzalez Work Phone: Start: 10-05-2020 Radiologic exam chest single view Kassandra barajas Work Phone: Start: 10-05-2020 Assay of magnesium Russell Markie Work Phone: Start: 10-05-2020 Basic metabolic panel calcium total Russell Aden Work Phone: Start: 10-04-2020 Radiologic exam chest single view Kassandra barajas Work Phone: Start: 10-04-2020 Assay of magnesium Russell Aden Work Phone: Start: 10-04-2020 Basic metabolic panel calcium total Russell Aden Work Phone: Start: 10-04-2020 Natriuretic peptide Russell Aden Work Phone: Start: 10-03-2020 Perq drainage pleura insert cath w/imaging Jus Loomis Work Phone: Start: 10-03-2020 Ct thorax w/o contrast material Kassandra Joann zaki Work Phone: Start: 10-03-2020 Albumin serum plasma/whole blood Russell Aden Work Phone: Start: 10-03-2020 Assay of folic acid serum Russell Aden Work Phone: Start: 10-03-2020 Assay of magnesium Russell Aden Work Phone: Start: 10-03-2020 Assay of thyroid stimulating hormone tsh Russell Aden Work Phone: Start: 10-03-2020 Assay of troponin quantitative Russell Martinez Work Phone: Start: 10-03-2020 Basic metabolic panel calcium total Russell Aden Work Phone: Start: 10-03-2020 Cyanocobalamin vitamin b-12 Russell Aden Work Phone: Start: 10-03-2020 Iron binding capacity Russell Aden Work Phone: Start: 10-03-2020 Lipid panel Russell Aden Work Phone: Start: 10-03-2020 Radiologic exam chest single view Russell Aden Work Phone: Start: 09-21-2020 Radiologic exam chest single view Sil Rausch Work Phone: Start: 09-21-2020 Radiologic exam chest single view Kylah Liz Work Phone: Start: 09-21-2020 Basic metabolic panel calcium total Kylah Liz Work Phone: Start: 09-21-2020 Blood count complete [...] 09-19-2020 Level iv surg pathology gross&microscopic exam Kassandraloretta Davidson Work Phone: Start: 09-19-2020 Cul prsmptv pthgnc organism scrn w/colony estimj Kassandraloretta Davidson Work Phone: Start: 09-19-2020 Culture fngi mold/yeast prsmptv oth xcpt blood Kassandraloretta Tenan Work Phone: Start: 09-19-2020 Culture tubercle/oth acid-fast bacilli any isol Kassandraloretta [employer] Work Phone: Start: 09-19-2020 Smr prim src fluorescent&/afs bct fngi parasit Kassandra Aziken Work Phone: Start: 09-19-2020 Radiologic exam chest [...] Start: 09-18-2020 Renal function panel Delmy P Trudi Work Phone: Start: 09-17-2020 Blood count complete auto&auto difrntl wbc Kylah Liz Work Phone: Start: 09-17-2020 Radiologic exam chest single view Kylah Liz Work Phone: Start: 09-16-2020 Radiologic exam chest single view Kylah Liz Work Phone: Start: 09-16-2020 Ecg routine ecg w/least 12 lds w/i&r Inderpart[employer] S Phangureh Work Phone: Start: 09-16-2020 ADD ON LAB TEST [employer] Work Phone: Start: 09-16-2020 Assay of magnesium Erasmo Raciel Work Phone: Start: 09-16-2020 Basic metabolic panel calcium total Erasmo Raciel Work Phone: Start: 09-16-2020 Protein xcpt refractometry serum plasma/whl bld Erasmo Schrader Work Phone: Start: 09-15-2020 DIFFERENTIAL, BODY FLUID [...] 09-15-2020 Basic metabolic panel calcium total Erasmo Schrader Work Phone: Start: 09-15-2020 Blood count hemoglobin Alessio Robertson Work Phone: Start: 09-14-2020 Radiologic exam chest single view Kylah Lloydpen Work Phone: Start: 09-14-2020 Iaad ia histoplasm capsulatum [facility] Work Phone: Start: 09-14-2020 Basic metabolic panel calcium total Alessio Robertson Work Phone: Start: 09-13-2020 Ct thorax w/o contrast material Kylah Ea pen Work Phone: Start: 09-13-2020 Radiologic exam chest single view Kylah Shalonda Work Phone: Start: 09-13-2020 Assay of folic acid serum Alessio Robertson Work Phone: Start: 09-13-2020 Assay of thyroid stimulating hormone tsh Alessio Robertson Work Phone: Start: 09-13-2020 Basic metabolic panel calcium total Alessio Robertson Work Phone: Start: 09-13-2020 Blood count complete auto&auto difrntl wbc Alessiogiuliana Arellanonan Work Phone: Start: 09-13-2020 C-reactive protein [facility] Marcelo Work Phone: Start: 09-13-2020 Cyanocobalamin vitamin b-12 [facility] Marcelo Work Phone: Start: 09-13-2020 Hemoglobin glycosylated a1c [facility] Marcelo Work Phone: Start: 09-13-2020 Procalcitonin (pct) [facility] Marcelo Work Phone: Start: 09-13-2020 Cytopath fl nongyn, sm/fltr Kylah Liz Work Phone: Start: 09-12-2020 Iaad ia mult step method nos each organism [employer] Work Phone: Start: 09-12-2020 STREP PNEUMONIAE ANTIGEN [employer] Work Phone: Start: 09-12-2020 MRSA BY PCR Anna Denny Work Phone: Start: 09-12-2020 Chest x-ray 1 view frontal Kylah Liz Work Phone: Start: 09-12-2020 Cul prsmptv pthgnc organism scrn w/colony estimj Alessiogiuliana Robertson Work Phone: Start: 09-12-2020 Perq drainage [...] stick/tablet rgnt auto w/o microscopy [employer] Work Phone: Start: 09-11-2020 Assay of lactate [employer] Work Phone: Start: 09-11-2020 Assay of magnesium [employer] Phang[employer]h Work Phone: Start: 09-11-2020 Assay of phosphorus inorganic Inderparta p S Phangureh Work Phone: Start: 09-11-2020 Blood count complete auto&auto difrntl wbc [employer]ang[employer] Work Phone: Start: 09-11-2020 Comprehensive metabolic panel [employer]der[employer]a p S [employer] Work Phone: Start: 09-11-2020 Culture bacterial blood aerobic w/id isolates [employer] Work Phone: Start: 09-11-2020 CULTURE, BLOOD 1 [employer] Work Phone: Start: 09-11-2020 Procalcitonin (pct) [employer] Work Phone: Start: 09-11-2020 Ecg routine ecg w/least 12 lds w/i&r Inderkatinaap S Yamilex Work Phone: Start: 01-28-2017 History of coronary [...] Author Start: 01-08-2026 DIABETES SCREEN DIABETES SCREEN [facility] Start: 01-08-2026 Diabetes Screening Diabetes Screening [facility] Start: 03-03-2025 [facility] Start: 02-23-2025 Patient discharge [facility] Start: 12-27-2024 Anesthesia intraperitoneal lower abd w/laps nos [facility] Start: 12-27-2024 Laparoscopy surg rpr initial inguinal hernia [facility] Start: 12-27-2024 Patient discharge [facility] Start: 11-18-2024 Iv infusion therapy prophylaxis/dx ea hour [facility] Start: 11-18-2024 Iv infusion therapy/prophylaxis /dx 1st to 1 hr [facility] Start: 11-18-2024 Following clinical pathway protocol [facility] Start: 11-08-2024 [facility] Start: 11-08-2024 [facility] Start: 11-08-2024 [facility] Start: 11-10-2023 [facility] Start: 11-10-2023 [facility] Start: 07-02-2023 Blood chemistry [facility] Start: 07-01-2023 Blood chemistry [facility] Start: 06-30-2023 Blood chemistry [facility] Start: 06-29-2023 Blood chemistry [facility] Start: 06-28-2023 Blood chemistry [facility] Start: 06-27-2023 Blood chemistry [facility] Start: 06-26-2023 Blood chemistry [facility] Start: 06-25-2023 Patient discharge [facility] Start: 06-24-2023 Referral to service [facility] Start: 06-24-2023 Antibody to gastric parietal cell measurement [facility] Start: 06-24-2023 [facility] Start: 06-24-2023 Referral to gastroenterology service [facility] Start: 06-24-2023 Inhalation therapy procedure [facility] Start: 06-23-2023 Referral to gastroenterology service [facility] Start: 06-21-2023 Consultation [facility] Start: 06-21-2023 End: 06-21-2023 Speech therapy assessment [facility] Start: 06-20-2023 Wound care [facility] Start: 06-20-2023 Following clinical pathway protocol [facility] Start: 06-20-2023 Consultation for treatment [facility] Start: 06-20-2023 Referral to wardrobe manager [facility] Start: 06-20-2023 Referral to etl analyst developer [facility] Start: 06-20-2023 Ambulation without limitation [facility] Start: 06-20-2023 Assessment of risk of venous thromboembolism [facility] Start: 06-20-2023 Documentation procedure [facility] Start: 06-20-2023 Insertion of catheter into peripheral vein [facility] Start: 06-20-2023 Measuring intake and output [facility] Start: 06-20-2023 Oxygen therapy [facility] Start: 06-20-2023 Providing care according to standard [facility] Start: 06-20-2023 Referral to occupational therapist [facility] Start: 06-20-2023 Referral to service [facility] Start: 06-20-2023 Plain chest X-ray [facility] Start: 06-20-2023 XR Chest PA and Lateral [facility] Start: 06-20-2023 Hospital admission, emergency, from emergency room, medical nature [facility] Start: 06-20-2023 Admission procedure [facility] Start: 06-20-2023 End: 06-20-2023 [facility] Start: 06-20-2023 [facility] Start: 06-04-2023 Microbial culture, routine Wound Culture [facility] Start: 02-28-2023 Covid-19 Vaccine () Covid-19 Vaccine () [facility] Start: 02-28-2023 Influenza vaccination [facility] Start: 01-01-2023 Blood chemistry [facility] Start: 12-25-2022 Blood chemistry [facility] Start: 12-24-2022 Microbial culture, routine Wound Culture [facility] Start: 12-24-2022 [facility] Start: 12-23-2022 Development of care plan [facility] Start: 12-23-2022 Patient discharge [facility] Start: 12-22-2022 Following clinical pathway protocol [facility] Start: 12-20-2022 Egd insert guide wire dilator passage esophagus [facility] Start: 12-20-2022 Egd transoral biopsy single/multiple [facility] Start: 12-20-2022 Egd transoral control bleeding any method [facility] Start: 12-20-2022 Patient discharge [facility] Start: 12-19-2022 Catheterization of vein [facility] Start: 12-18-2022 Administration of blood product [facility] Start: 12-18-2022 [facility] Start: 12-17-2022 Referral to gastroenterology service [facility] Start: 12-17-2022 Administration of blood product [facility] Start: 12-11-2022 Wound care [facility] Start: 12-10-2022 Consultation for pain [facility] Start: 12-10-2022 Consultation for treatment [facility] Start: 12-06-2022 [facility] Start: 12-06-2022 [facility] Start: 12-06-2022 Application of ice collar, cap or bag [facility] Start: 12-05-2022 [facility] Start: 12-05-2022 Verification routine [facility] Start: 12-05-2022 [facility] Start: 12-04-2022 Development of care plan [facility] Start: 12-04-2022 Following clinical pathway protocol [facility] Start: 12-04-2022 Developing a treatment plan [facility] Start: 12-04-2022 [facility] Start: 12-03-2022 Referral to etl analyst developer [facility] Start: 12-03-2022 Patient referral to [facility] Start: 12-03-2022 Admission procedure [facility] Start: 12-03-2022 Measuring intake and output [facility] Start: 12-03-2022 Patient referral to dietitian [facility] Start: 12-03-2022 Referral to occupational therapist [facility] Start: 12-03-2022 Referral to service [facility] Start: 12-03-2022 Vital signs measurements [facility] Start: 12-03-2022 [facility] Start: 12-03-2022 Patient discharge [facility] Start: 12-02-2022 Wound care [facility] Start: 11-30-2022 [facility] Start: 11-30-2022 Referral to etl analyst developer [facility] Start: 11-29-2022 Blood chemistry [facility] Start: 11-29-2022 Thyroid stimulating hormone measurement [facility] Start: 11-29-2022 Vitamin B12 measurement [facility] Start: 11-29-2022 Following clinical pathway protocol [facility] Start: 11-29-2022 Application of intermittent pneumatic compression device [facility] Start: 11-29-2022 Assessment of risk of venous thromboembolism [facility] Start: 11-29-2022 Bacteria identified in Sputum by Culture [facility] Start: 11-29-2022 Consultation for treatment [facility] Start: 11-29-2022 Documentation procedure [facility] Start: 11-29-2022 Insertion of catheter into peripheral vein [facility] Start: 11-29-2022 Legionella pneumophila Ag [Presence] in Urine [facility] Start: 11-29-2022 Measuring intake and output [facility] Start: 11-29-2022 Patient referral to dietitian [facility] Start: 11-29-2022 Physiotherapy of chest [facility] Start: 11-29-2022 Providing care according to standard [facility] Start: 11-29-2022 Provision of activity privileges [facility] Start: 11-29-2022 Referral to occupational therapist [facility] Start: 11-29-2022 Referral to service [facility] Start: 11-29-2022 Streptococcus pneumoniae antigen assay [facility] Start: 11-29-2022 [facility] Start: 11-29-2022 Verification routine [facility] Start: 11-29-2022 Admission procedure [facility] Start: 11-29-2022 End: 11-29-2022 Blood culture [facility] Start: 11-29-2022 [facility] Start: 06-30-2022 ADVANCE DIRECTIVE DISCUSSION ADVANCE DIRECTIVE DISCUSSION [facility] Start: 06-30-2022 DEPRESSION ASSESSMENT DEPRESSION ASSESSMENT [facility] Start: 06-05-2022 Evaluation of diagnostic study results [facility] Start: 10-07-2021 Creatinine measurement Creatinine monitoring [facility] [...] VACCINE (4 - Booster for Moderna series) [facility] Start: 02-28-2021 Influenza vaccination Flu vaccine (Season Ended) [facility] Work Phone: Start: 10-09-2020 End: 10-07-2021 Basic metabolic 2000 panel Basic Metabolic Panel Lab Routine CKD (chronic kidney disease), stage IV (HCC) senior care (current) use of antibiotics Expected: 10/09/2020, Expires: [...] RSV Vaccine (1 - 1-dose 60+ series) [facility] Start: 1991 Shingles Vaccine (1 of 2) Shingles Vaccine (1 of 2) [facility] Work Phone: Start: 1960 DTaP/Tdap/Td vaccine (1 - Tdap) DTaP/Tdap/Td vaccine (1 - Tdap) [facility] Work Phone: Start: 1960 SHINGRIX VACCINE (1 of 2) SHINGRIX VACCINE (1 of 2) [facility] Start: 1960 Urine microalbumin profile [facility] Start: 1959 Hepatitis B surface antibody level LDL CHOLESTEROL [facility] Start: 1959 SPIROMETRY SPIROMETRY [facility] Start: 1951 Lipid panel Lipid screen [facility] Work Phone: Start: 1947 PNEUMOCOCCAL: 65+ (1 - PCV) PNEUMOCOCCAL: 65+ (1 - PCV) [facility] Start: 1941 Hepatitis C screening Hepatitis C [...] EDT [facility] Work Phone: Anion gap measurement [facility]ion [facility] Anion gap measurement [facility] Bacteria identified in Blood by Culture Blood Culture [facility] End: 09-13-2020 Basic metabolic 2000 panel Basic [...] until 09/15/2020 Basic metabolic 2000 panel [facility] Work Phone: Comment on above: Daily until discontinued starting 2020, 3 completed Bilirubin measurement, urine [facility] End: 10-09-2020 Brain Natriuretic Peptide Brain Natriuretic Peptide Lab Routine Every Third Day for 3 Occurrences starting 10/03/2020 until 10/09/2020, 1 completed [facility] Work Phone: Comment on above: Every Third Day for 3 Occurrences starti ng 10/03/2020 until 10/09/2020, 1 completed Brain Natriuretic Peptide Brain Natriuretic Peptide Lab Routine 10/04/2020 2:11 AM EDT [facility] Work Phone: BUN/Creatinine ratio [facility] BUN/Creatinine ratio [facility] BUN/Creatinine ratio [facility] C reactive protein [Mass/volume] in Serum or Plasma [facility] Calcium [Mass/volume ] in Serum or Plasma [facility] Calcium [Mass/volume ] in Serum or Plasma [facility] Calcium [Mass/volume ] in Serum or Plasma [facility] Carbon dioxide, tota l [Moles/volume] in Serum or Plasma [facility] Carbon dioxide, tota l [Moles/volume] in Serum or Plasma [facility] Carbon dioxide, tota l [Moles/volume] in Serum or Plasma [facility] Carcinoembryonic Ag [Mass/volume] in Serum or Plasma [facility] Cardiac event recording [facility] CBC Auto Differential CBC Auto D ifferential Lab Routine Daily until discontinued starting 09/19/2020, 3 completed [facility] Work Phone: Comment on above: Daily until discontinued starting 2020, 3 completed CBC W Auto Different ial panel - Blood [facility] CBC W Auto Different ial panel - Blood [facility] CBC W Auto Different ial panel - Blood [facility] CBC W Auto Different ial panel - Blood [facility] Chloride [Moles/volu me] in Serum or Plasma [facility] Chloride [Moles/volu me] in Serum or Plasma [facility] Chloride [Moles/volu me] in Serum or Plasma [facility] Cobalamin (Vitamin B 12) [Mass/volume] in Serum or Plasma [facility] Comprehensive metabo lic 2000 panel - Serum or Plasma [facility] Creatinine [Moles/vo lume] in Serum or Plasma [facility] Creatinine [Moles/vo lume] in Serum or Plasma [facility] Creatinine [Moles/vo lume] in Serum or Plasma [facility] Culture with Smear, Acid Fast Bacillius Culture with Smear, Acid Fast Bacillius Microbiology Routine 09/19/2020 9:10 AM EDT [facility] Work Phone: Culture, Anaerobic a nd Aerobic Culture, Anaerobic and Aerobic Microbiology STAT 09/19/2020 9:10 AM EDT [facility] Work Phone: Culture, Fungus Culture, Fungus Microbiology Routine 09/19/2020 9:10 AM EDT [facility] Work Phone: Electrocardiographic procedure [facility] Erythrocyte sediment ation rate [facility] Ferritin [Mass/volum e] in Serum or Plasma [facility] Ferritin [Mass/volum e] in Serum or Plasma [facility] Ferritin [Mass/volum e] in Serum or Plasma [facility] Ferritin [Mass/volum e] in Serum or Plasma [facility] Ferritin [Mass/volum e] in Serum or Plasma [facility] Folate [Mass/volume] in Serum or Plasma [facility] Folate [Moles/volume ] in Serum or Plasma [facility] Fungus identified in Unspecified specimen by Culture [facility] Gastrin [Mass/volume ] in Serum or Plasma [facility] Gliadin peptide IgA Ab [Units/volume] in Serum [facility] Gliadin peptide IgG Ab [Units/volume] in Serum [facility] Glucose [Mass/volume ] in Serum or Plasma [facility] Glucose [Mass/volume ] in Serum or Plasma [facility] Glucose [Mass/volume ] in Serum or Plasma [facility] Hematocrit [Volume F raction] of Blood [facility] Hematocrit [Volume F raction] of Blood [facility] Hematocrit [Volume F raction] of Blood [facility] Hemoglobin [Mass/vol ume] in Blood [facility] Hemoglobin [Mass/vol ume] in Blood [facility] Hemoglobin [Mass/vol ume] in Blood [facility] Hemoglobin [Presence ] in Urine [facility] Imaging of liver [facility] Iron [Mass/mass] in Unspecified specimen [facility] Iron and Iron bindin g capacity panel - Serum or Plasma [facility] Iron and Iron bindin g capacity panel - Serum or Plasma [facility] Iron and Iron bindin g capacity panel - Serum or Plasma [facility] Iron and Iron bindin g capacity panel - Serum or Plasma [facility] Iron and Iron bindin g capacity panel - Serum or Plasma [facility] Iron saturation [Mas s Fraction] in Serum or Plasma [facility] Lactate dehydrogenas e measurement [facility] Lactate dehydrogenas e measurement [facility] Lactate dehydrogenas e measurement [facility] Lactate dehydrogenas e measurement [facility] Leukocytes [#/volume ] in Blood [facility] Leukocytes [#/volume ] in Blood [facility] Leukocytes [#/volume ] in Blood [facility] Magnesium measurement [facility] Mean corpuscular hem oglobin concentration determination [facility] Mean corpuscular hem oglobin concentration determination [facility] Mean corpuscular hem oglobin concentration determination [facility] Mean corpuscular hem oglobin determination [facility] Mean corpuscular hem oglobin determination [facility] Mean corpuscular hem oglobin determination [facility] Measurement of immunoglobulin A in serum specimen [facility] Measurement of keton es in urine using dipstick [facility] Measurement of renal function [facility] Measurement of renal function [facility] Measurement of renal function [facility] Microscopic urinalysis [facility] Nebulizer therapy [facility] Work Phone: Comment on above: 0600, 1000, 1400, 1800, 2200 until disco ntinued starting 09/11/2020 4X Daily until disco ntinued starting 09/19/2020 Neutrophil count [facility] Neutrophil count [facility] Neutrophil count [facility] Neutrophil percent differential count [facility] Neutrophil percent differential count [facility] Neutrophil percent differential count [facility] Oxygen therapy [[facility] Data Set] [facility] Work Phone: Comment on above: Daily until discontinued starting 2020 Daily until disconti nued starting 10/02/2020 Daily until disconti nued starting 10/04/2020 Daily until disconti nued starting 10/05/2020 Patient Education [facility] Work Phone: Patient referral [facility] Work Phone: pH of Urine [facility] Platelets [#/volume] in Blood [facility] Platelets [#/volume] in Blood [facility] Platelets [#/volume] in Blood [facility] Potassium [Moles/vol ume] in Serum or Plasma [facility] Potassium [Moles/vol ume] in Serum or Plasma [facility] Potassium [Moles/vol ume] in Serum or Plasma [facility] Red blood cell count [facility] Red blood cell count [facility] Red blood cell count [facility] Red cell distributio n width determination [facility] Red cell distributio n width determination [facility] Red cell distributio n width determination [facility] Serum inorganic phos phate measurement [facility] Sodium [Moles/volume ] in Serum or Plasma [facility] Sodium [Moles/volume ] in Serum or Plasma [facility] Sodium [Moles/volume ] in Serum or Plasma [facility] Specific gravity of Urine [facility] Tissue transglutamin ase IgA Ab [Units/volume] in Serum [facility] Tissue transglutamin ase IgG Ab [Units/volume] in Serum [facility] Urea nitrogen [Mass/ volume] in Serum or Plasma [facility] Urea nitrogen [Mass/ volume] in Serum or Plasma [facility] Urea nitrogen [Mass/ volume] in Serum or Plasma [facility] Urinalysis, blood, qualitative [facility] Urine dipstick for glucose [facility] Urine dipstick for l eukocyte esterase [facility] Urine dipstick for nitrite [facility] Urine dipstick for protein [facility] Urine examination [facility] Urine microscopy: ep ithelial cells [facility] Urine Microscopy: wh ite cells [facility] Urobilinogen [Presen ce] in Urine [facility] Vitamin B12 measurement [facility] XR CHEST PORTABLE XR CHEST FRANCHESCA BLE Imaging Routine Daily until discontinued starting 09/13/2020, 9 completed [facility] Work Phone: Comment on above: Daily until discontinued starting 2020, 9 completed [facility] Immunizations Immunization Date Immunization Notes Care Provider Fa cility 06-20-2021 Covid (Moderna) Dr. Rosa Maria gamble Work Phone: [facility] 09-25-2020 Covid (Moderna) Dr. Rosa Maria Small ifwerner Work Phone: [facility] 08-28-2020 Covid (Moderna) Dr. Rosa Maria Small ifwerner Work Phone: [facility] 06-20-2015 pneumococcal conjuga te vaccine, [address] Rosa Maria Santacruz Work Phone: [facility] 09-30-2006 pneumococcal polysaccharide vaccine, [address] Rosa Maria Santacruz Work Phone: [facility] Payers Date Payer Category Payer Self-pay [id number] 2015 Medicare [id number] 2015 Unknown [id number] 2015 Unknown [facility] MEDICARE SUPPLEMENT [id number] 2015-Present [phone] [id number] [facility] [place] [address] [facility] [id number]. [id number] 2006 Medicare [id number]. [id number] 2006 Medicare MEDICARE MEDICAR E A AND B [id number] 2006-Present [phone] [address] [address] [place] [address] Medicare [id number]. [id number] 2006 Medicare [id number] 1940 Unknown [id number] 2.16.840.1.829020.3.579.2.62 7 Unknown [id number] 2.16.840.1.260676.3.579.2.46 2 Unknown [id number] 2.16.840.1.753046.3.579.2.46 2 Unknown [id number] 2.16.840.1.240570.3.579.2.46 2 Unknown [id number] 2.16.840.1.570432.3.579.2.46 2 Unknown [id number] 2.16.840.1.146861.3.579.2.46 2 Unknown [id number] 2.16.840.1.960186.3.579.2.46 2 Unknown [id number] 2.16.840.1.956129.3.579.2.46 2 Unknown [id number] 2.16.840.1.872914.3.579.2.46 2 Unknown [id number] 2.16.840.1.628902.3.579.2.46 2 Unknown [id number] 2.16.840.1.259026.3.579.2.46 2 Unknown [id number] 2.16.840.1.458943.3.579.2.46 2 Unknown [id number] 2.16.840.1.898509.3.579.2.46 2 Unknown [id number] 2.16.840.1.372139.3.579.2.46 2 Unknown [id number] 2.16.840.1.621758.3.579.2.46 2 Unknown [id number] 2.16.840.1.902042.3.579.2.46 2 Unknown [id number] 2.16.840.1.050189.3.579.2.46 2 Unknown [id number] 2.16.840.1.443046.3.579.2.46 2 Unknown [id number] 2.16.840.1.241500.3.579.2.46 2 Unknown [id number] 2.16.840.1.890719.3.579.2.46 2 Unknown [id number] 2.16.840.1.349935.3.579.2.46 2 Unknown [id number] 2.16.840.1.458626.3.579.2.46 2 Unknown [id number] 2.16.840.1.291303.3.579.2.46 2 Unknown [id number] 2.16.840.1.003891.3.579.2.46 2 Unknown [id number] 2.16.840.1.215662.3.579.2.46 2 Unknown [id number] 2.16.840.1.560952.3.579.2.46 2 Unknown [id number] 2.16.840.1.492735.3.579.2.46 2 Unknown [id number] 2.16.840.1.594879.3.579.2.46 2 Unknown [id number] 2.16.840.1.236499.3.579.2.46 2 Unknown [id number] 2.16.840.1.427076.3.579.2.46 2 Unknown [id number] 2.16.840.1.185635.3.579.2.46 2 Unknown [id number] 2.16.840.1.742639.3.579.2.46 2 Unknown [id number] 2.16.840.1.667812.3.579.2.46 2 Unknown [id number] 2.16.840.1.421589.3.579.2.46 2 Social History Date Type Detail Facility Start: 09-20-2020 End: 02-23-2025 Tobacco smoking status NHIS Former smoker [facility] Work Phone: Start: 09-20-2020 End: 01-04-2023 Alcohol intake Current drinker of alcohol (finding) [facility] Work Phone: Start: 09-13-2020 History SDOH Alcohol Frequency 5 [employer] Work Phone: Start: 09-13-2020 History SDOH Alcohol Std Drinks 2 [facility] Work Phone: Start: 09-12-2020 History SDOH Alcohol Binge 99 [facility] Work Phone: Start: 09-13-2020 Alcohol Comment 4 shots of bourbon per day [facility] Work Phone: Start: 1940 Sex Assigned At Not on file [facility] Work Phone: Exposure to SARS-CoV -2 (event) Not sure [employer] Work Phone: Start: 12-03-2021 End: 11-10-2023 Tobacco smoking status NHIS Unknown if ever smoked [facility] Start: 10-02-2020 None [facility] Start: 02-16-2016 Spouse/ Significant Other [facility] Start: 11-02-2020 Non-smoker [facility] Start: 1940 Sex Assigned At Male [facility] History of tobacco use Current smoker [facility] Work Phone: Start: 01-04-2023 End: 01-22-2023 [facility] of [facility] Start: 01-04-2023 End: 07-26-2023 Tobacco use panel [facility] How hard is it for y ou to pay for the very basics like food, housing, medical care, and heating Not very hard [facility] (I/We) worried daniellearnaldo er (my/our) food would run out before (I/we) got money to buy more. Never true [facility] In the past 12 month s, has lack of transportation kept you from medical appointments or from getting medications? No [facility] In the past 12 month s, was there a time when you were not able to pay the mortgage or rent on time? No [facility] Start: 09-20-2024 End: 10-11-2024 Sex Male (finding) [facility] Medical Equipment Procedure Code Equipment Code Equipment Origin al Text Equipment Identifier Dates MESH,PRO SEED BUYER [id number] FDA Start: 07-26-2021 MESH,PRO SEED BUYER [id number] FDA Start: 07-26-2021 MESH,PRO SEED BUYER [id number] FDA Start: 07-26-2021 MESH,PRO SEED BUYER [id number] FDA Start: 07-26-2021 MESH,PRO SEED BUYER [id number] FDA Start: 07-26-2021 MESH,PRO SEED BUYER [id number] FDA Start: 07-26-2021 MESH,PRO SEED BUYER [id number] FDA Start: 07-26-2021 MESH,PRO SEED BUYER [id number] FDA Start: 07-26-2021 MESH,PRO SEED BUYER [id number] FDA Start: 07-26-2021 FDA Start: 07-26-2021 Nail Tfn-Advance d 10mm 130d Short Gold Green Iverson Ti-15mo 170mm - [id number] Start: 01-04-2023 Screw 5mm 4.3mm T25 Full Thread Titanium 34mm Bone Lock Self Tap Blunt Tip - [id number] Start: 01-04-2023 FDA Start: 07-26-2021 FDA Start: 07-26-2021 FDA Start: 07-26-2021 FDA Start: 07-26-2021 FDA Start: 07-26-2021 FDA Start: 07-26-2021 MESH,PRO SEED BUYER [id number] FDA Start: 07-26-2021 FDA Start: 07-26-2021 FDA Start: 07-26-2021 FDA Start: 07-26-2021 FDA Start: 07-26-2021 FDA Start: 07-26-2021 FDA Start: 07-26-2021 FDA Start: 07-26-2021 FDA Start: 07-26-2021 MESH,PRO SEED BUYER [id number] FDA Start: 07-26-2021 MESH,PRO SEED BUYER [id number] FDA Start: 07-26-2021 MESH,PRO SEED BUYER [id number] FDA Start: 07-26-2021 MESH,PRO SEED BUYER [id number] FDA Start: 07-26-2021 MESH,PRO SEED BUYER [id number] FDA Start: 07-26-2021 MESH,PRO SEED BUYER [id number] FDA Start: 07-26-2021 MESH,PRO SEED BUYER [id number] FDA Start: 07-26-2021 MESH,PRO SEED BUYER [id number] FDA Start: 07-26-2021 FDA Start: 07-26-2021 MESH,PRO SEED BUYER [id number] FDA Start: 07-26-2021 MESH,PRO SEED BUYER [id number] FDA Start: 12-27-2024 MESH,PRO SEED BUYER [id number] FDA Start: 07-26-2021 MESH,PRO SEED BUYER [id number] FDA Start: 12-27-2024 [id number] FDA Start: 02-23-2025 FDA Start: 07-26-2021 FDA Start: 12-27-2024 Goals Date Patient Goal Desired Activity /State Functional Status Date Assessment Result Facility 12-27-2024 Functional status Ambulates;Bathroom Priv ilege [facility] Work Phone: 06-25-2023 Functional status Chair [facility] Work Phone: 12-23-2022 Functional status Bedrest [facility] Work Phone: 12-22-2022 Functional status With Assist of 2 [facility] Work Phone: 12-21-2022 Functional status Tolerates Activity Well [facility] Work Phone: 12-18-2022 Functional status Chair [facility] Work Phone: 12-03-2022 Functional status Ambulates;Bedside Commo de [facility] Work Phone: Mental Status Date Assessment Result Facility 12-27-2024 Cognitive function Voice/Name [facility] Work Phone: 11-18-2024 Cognitive function Voice/Name [facility] Work Phone: 11-08-2024 Cognitive function Awake;Alert;A ppropriate;Follow s Commands [facility] Work Phone: 11-10-2023 Cognitive function Level Of Cons ciousness Awake;Alert;Appropriate;Follow s Commands [facility] Work Phone: 07-21-2023 Cognitive function Voice/Name [facility] Work Phone: 06-25-2023 Cognitive function Voice/Name [facility] Work Phone: 06-20-2023 Cognitive function Voice/Name [facility] Work Phone: 12-23-2022 Cognitive function Voice/Name [facility] Work Phone: 12-20-2022 Cognitive function Voice/Name [facility] Work Phone: 12-18-2022 Cognitive function Voice/Name [facility] Work Phone: 12-17-2022 Cognitive function Appropriate;Cooperativ e [facility] Work Phone: 12-03-2022 Cognitive function Voice/Name [facility] Work Phone: 05-20-2022 Cognitive function Level Of Cons ciousness Awake;Alert;Appropriate;Follow s Commands [facility] Work Phone: Clinical Notes 09-12-2020 to 05-03-2025 Note Date & Type Note Facility 05-03-2025 Note [facility] 03-03-2025 Progress note Note Date/Time March 03, 2025 12:13pm [facility] [place] [address] OFFICE VISIT Date of Service: 03/03/25 1135 MR#: [id number] Acct: [id number] Name: AMAURY BLANK Rep #: [id number] : 1940 From: Mathieu Mcintyre MD Age/Sex: 84/M Location: [facility] Status: Signed HPI Subjective Date of Service 03/03/25 Chief Complaint F/u for Anemia. History of Present Illness 84y.o.man with H/O of Ulcerative colitis was found to have FANNIE, started oral iron pills over 6 yrs ago. He was found to have iron deficiency anemia, received 2 units PRBCs on 04/30/2021. He was referred for further evaluation. Found to have Anemia of Chronic disease/CKD. He had blood work which showed persistent Iron deficiency anemia so received Injectafer on 07/15/2023 and 07/21/2023. Had blood work and comes for follow up. Feeling better. 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 Hematemesis/vomiting blood Upper [...] (~04/2009) Family History Father CAD (coronary artery disease) Mother Cancer breast Social History adopted: No household [...] Yes Type: coffee Number of servings: 2 Intake Vital Signs 12/27/24 09:29 02/23/25 07:06 03/03/25 11:37 Height 5 ft 10 in 5 ft 11 in 5 ft 11 in Weight: 77.281 kg BMI 23.7 BP 175/86 H Blood Pressure Location Lt brachial Position Sitting Respiration 18 Pulse 66 Pulse Source Monitor Temp 98.2 F Temperature Source Temporal Artery Pulse Oximetry (%) 98 Oxygen Delivery Method room air Intake Accompanied by: Self Is patient in pain?: No Allergies hydrochlorothiazide Allergy (Severe, Verified 03/03/25 11:46) Rash furosemide (From Lasix) Allergy (Verified 03/03/25 11:46) Severe Rash Itchy lovastatin (From Mevacor) Allergy (Verified 03/03/25 11:46) Rash Medications ?Medication ?Instructions ?Recorded ?Confirmed ?Type ferrous sulfate 325 mg (65 mg 325 mg PO DAILY vitamin 05/28/15 03/03/25 History iron) tablet vitamin B complex 1 each PO DAILY vitamin 01/2803/03/25 History aspirin 81 mg tablet,delayed 81 mg PO MO 04/14/2310/22 History release zinc acetate 50 mg (zinc) capsule 50 mg PO DAILY 09/2803/03/25 History atorvastatin 40 mg tablet (Lipitor) 40 mg PO DAILY cho lesterol #90 tabs 03/08/24 03/03/25 Rx amlodipine 10 mg tablet 10 mg PO DAILY #90 tabs 06/3003/03/25 Rx lisinopril 20 mg tablet 20 mg PO DAILY #90 tabs 06/3003/03/25 Rx Held on 11/08/24. Instructions: Order Changed furosemide 20 mg tablet (Lasix) [address]i ter m d/t 12/10/24 03/03/25 History potassium oxycodone 5 mg tablet 5 - 10 mg (1 - 2 x 5 mg) PO Q4H 12/27/24 03/03/25 Rx PRN PRN Pain Score 4-10 5 days #10 tabs hydralazine 50 mg tablet 100 mg (2 x 50 mg) PO BID #3 60 tabs 02/18/25 03/03/25 Rx Have you fallen in the past year?: Yes Central Venous Access Central Venous Access: No Laboratory Tests 05/16/21 05/17/21 06/06/21 15:52 Unknown 14:23 WBC 5.1 5.2 Hgb 8.0 L 11.5 L Hct 36.4 L MCV 110.4 H Plt Count 133 L 126 L Absolute Neuts (auto) Absolute Lymphs (auto) Retic Count 3.89 H Haptoglobin 67 Sodium 139 140 Potassium 5.1 4.6 Chloride 111 H 107 Carbon Dioxide 26.0 BUN 41 H 29 H Creatinine 2.34 H 2.01 H Glucose 112 H Calcium 8.8 8.6 Iron 172 112 TIBC 270 310 Iron Saturation 63.7 H 36.1 Phosphorus Magnesium Ferritin 634 H 592 H Total Bilirubin 1.90 H 0.90 AST 18 13 L ALT 12 L 14 L Alkaline Phosphatase 130 H 111 Lactate Dehydrogenase 249 H 239 Total Protein 6.3 L 6.8 Total Protein (PEP) 5.9 L Albumin 3.3 3.8 C-React Prot Ext Range Globulin 3.0 3.0 Albumin/Globulin Ratio Vitamin B12 285 Folate 8.70 IgG 590 L IgA 75 IgM 9 L VAN M-Mika Free Heppner/Lambda Ratio 1.62 10/03/21 03/27/22 03/26/23 13:33 14:15 05:30 WBC 4.0 L 4.1 L 6.4 Hgb 11.0 L 11.2 L 8.7 L Hct 34.6 L 35.8 L 27.4 L MCV Plt Count 119 L 108 L 106 L Absolute Neuts (auto) 3.0 2.9 Absolute Lymphs (auto) 0.46 L Retic Count Haptoglobin Sodium 144 144 Potassium 4.4 5.2 H Chloride 115 H 113 H Carbon Dioxide 24.0 26.0 BUN 40 H 40 H Creatinine 2.05 H 2.23 H Glucose 100 Calcium 8.7 8.8 Iron 112 80 15 L TIBC 271 255 198 L Iron Saturation 41.3 31.4 7.6 L Phosphorus Magnesium Ferritin 374 293 602 H Total Bilirubin 0.80 0.60 AST 19 18 ALT 13 L 15 L Alkaline Phosphatase 106 102 Lactate Dehydrogenase 210 160 Total Protein 6.7 6.5 Total Protein (PEP) Albumin 3.7 3.7 C-React Prot Ext Range Globulin 3.0 2.8 Albumin/Globulin Ratio Vitamin B12 Folate IgG IgA IgM VAN M-Mika Free Heppner/Lambda Ratio 07/07/23 11/10/23 11/08/24 13:55 13:28 12:57 WBC 3.7 L 5.4 4.6 Hgb 7.9 L 9.9 L 10.2 L Hct 26.2 L 31.5 L 31.1 L MCV Plt Count 130 L 132 L 118 L Absolute Neuts (auto) Absolute Lymphs (auto) Retic Count Haptoglobin Sodium 140 Potassium 6.0 H* Chloride 114 H Carbon Dioxide 22.0 BUN 56 H Creatinine 2.95 H 2.51 H Glucose 109 H Calcium 8.9 Iron 51 L 107 TIBC 239 L 206 L Iron Saturation 21.3 51.9 Phosphorus Magnesium Ferritin 446 H 910 H Total Bilirubin 0.50 AST 11 L ALT 12 L Alkaline Phosphatase 113 Lactate Dehydrogenase 142 Total Protein 6.5 Total Protein (PEP) Albumin 3.7 C-React Prot Ext Range < 2.90 Globulin 2.8 Albumin/Globulin Ratio Vitamin B12 Folate IgG IgA IgM VAN M-Mika Free Heppner/Lambda Ratio 03/03/25 11:07 WBC 4.2 L Hgb 11.0 L Hct 33.2 L MCV Plt Count 141 L Absolute Neuts (auto) Absolute Lymphs (auto) Retic Count Haptoglobin Sodium 139 Potassium 4.8 Chloride 105 Carbon Dioxide 19.9 L BUN 46 H Creatinine 2.36 H Glucose 91 Calcium 9.3 Iron 73 TIBC Iron Saturation 32.0 Phosphorus 3.8 Magnesium 2.3 H Ferritin 769 H Total Bilirubin 0.49 AST 15 ALT 9 Alkaline Phosphatase 85 Lactate Dehydrogenase 166 Total Protein 6.8 Total Protein (PEP) Albumin 4.6 C-React Prot Ext Range Globulin 2.3 Albumin/Globulin Ratio 2.0 Vitamin B12 267 Folate IgG IgA IgM VAN M-Mika Free Heppner/Lambda Ratio Coding Level of Care Code Off vis,est,level 3 Exam Problem Focused Diagnoses Anemia due to stage 4 chronic kidney disease N18.4; D63.1 Anemia type: due to chronic kidney disease Chronic kidney disease stage: stage 4 (severe) Iron deficiency anemia, unspecified iron deficiency anemia type D50.9 Iron deficiency anemia type: unspecified iron deficiency Assessment and Plan Assessment and Plan (1) Anemia: Status: Chronic Qualifiers: Anemia type: due to chronic kidney disease Chronic kidney disease stage: stage 4 (severe) Qualified Code(s): N18.4 - Chronic kidney disease, stage 4 (severe); D63.1 - Anemia in chronic kidney disease Comment: HGB 11 today. Improving. Plan: To continue observation. RTC 3 months. (2) Iron deficiency anemia: Status: Chronic Qualifiers: Iron deficiency anemia type: unspecified iron deficiency Qualified Code(s): D50.9 - Iron deficiency anemia, unspecified Comment: Hgb is 11 today. Iron profile is normal. Plan: To continue oral Iron. Check Iron profile. RTC 3 months Clinical Quality Measures Falls Risk Screening/Assistive Devices Have you fallen in the past year?: Yes 03/03/25 1213 <Electronically signed by Mathieu Wallace> Date _ Mathieu Mcintyre MD Cosigner Signature: Date (if applicable) CC: Dr. Jakob Flower MD ~ [facility] Work Phone: 1(350) 738-904108-27-2025 Procedure note [facility] Medical Records Department [address] [place] [address] Operative Report 02/23/25 0850 MR#: [id number] Acct: [id number] Name: AMAURY BLANK Rep #:[id number] : 1940 84 From: Singh Amaya MD PCP: Dr. Jakob Flower MD Status:[facility] Location: [facility] Operative Report (Standard) Operative Information Date of Procedure: 02/23/25 Pre-Operative Diagnosis: Mesenteric stenosis with chronic mesenteric ischemia Post-Operative Diagnosis: Same Surgery/Procedure Performed: 1. Ultrasound-guided access retrograde right common femoral artery. 2. Aortogram with selective SMA angiogram. 3. Preballoon with a 4 mm balloon and stent with a 6 x 18 express SD and postpone with a 7 x 4 balloon. 4. Closure with Mynx chief operator lock tender: No Type of Anesthesia: IV Sedation Procedure Start Time: 07:45 Procedure Stop Time: 08:30 Select all DRAINS/GRAFTS/IMPLANTS that apply: None Estimated Blood Loss: Minimal Specimen collected: No Description of surgery: Patient brought to the Manufacturing Sr Engineer. Underwent appropriate consent. Underwent sedation. Is prepped and draped in a sterile fashion. We did ultrasound accessretrograde right common femoral artery. Give 5000 units of heparin. Put on a 6French sheath. Using a [place] catheter and then a Tadeo 4 selected out the SMA showed a severe stenosis. We brought in the ZARAGOZA guide and then switched to a 018 wire. We Lula balloon through the area show in the severe stenosis with a 4 mm balloon then brought in a 6 x 18 stent just to the previous stent and just to the origin of the SMA. We then post balloon with a7 x 4 balloon and was markedly improved afterwards with brisk flow through this entire area. Removed out the guide and then deployed a minx with good hemostasis. Patient was brought to recovery in stable condition. Sedation: This 84-year-old gentleman underwent moderate sedation given by Dr. Singh Amaya. He was monitored by the IV sedation nurse. He was given fentanyl, Versed and heparin. He was monitored EKG blood pressure and pulse ox for over the 45 minutes of the procedure. See the MAR for complete record. Surgical Findings: SMA stenosis, improved after stent Complications Complications: No Admit VTE Documentation VTE Present on Admission: No 02/23/25 0853 Cosigner Signature (if applicable): CC: Dr. Singh Amaya MD; Dr. Jakob Flower MD~ Signed [facility]06-30-2025 Consult note Author Gagandeep Rob [facility] Note Date/Time December 27, 2024 10:1 8am [facility] Medical Records Department [address] [place] [address] Pre-Anesthesia Evaluation 12/27/24 1009 MR#: [id number] Acct: [id number] Name: AMAURY BLANK Rep #:[id number] : 1940 84 From: Gagandeep Rob MD PCP: Dr. 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 Hx Hospitalization No 12/14/24 09:04 Any Problems [...] sips of water?: Yes PONV PONV - bus boy: PONV - bus boy Female No 12/14/24 09:04 HX of Motion [...] 12/27/24 09:29 Respiratory Assessment Respiratory Assessment - bus boy: Respiratory Tract Infection Hx - bus boy Hx Respiratory Tract Infection No 12/14/24 09:04 STOP Sleep Apnea STOP Sleep Apnea - bus boy: STOP Sleep Apnea - bus boy Hx Hypertension No 12/14/24 09:04 Hx Sleep [...] Tobacco Use History Tobacco Use History - bus boy: Tobacco Use History - bus boy Tobacco Use Non-smoker 11/02/20 18:32 Smoking Status Former smoker 12/14/24 09:04 Hx Tobacco Use No 12/14/24 09:04 Years Smoking Packs Smoked per Day Smoking Cessation Date was No - quit smoking greater 12/14/24 09:04 within the last 15 years than 15 years ago Hx Smoking Cessation Date 10/28/00 12/14/24 09:04 Hx Smoking Cessation Yes 12/14/24 09:04 Counseling Hematologic Medial History Hematologic Hx - bus 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 Specify any problems Hx of Preganancy in last 3 N/A 12/14/24 09:04 Months Nurse Filling Out Transfusion [email or web address] 12/14/24 09:04 & Questions: Date: 12/14/24 12/14/24 09:04 Time: 09:12/14/24 09:04 Patient unable to answer at this time (ie. 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) use 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 Hematemesis/vomiting blood Upper [...] by Gagandeep lui MD> Date _ Gagandeep Rob MD Cosigner Signature: Date CC: ~ Signed [facility] Work Phone: 1(171) 669-588306-30-2025 History and physical note Author Aurelia Umaña [facility] Note Date/Time December 27, 2024 1:40 pm [facility] Medical Records Department [address] [place] [address] History & Physical Exam 12/27/24 1011 MR#: [id number] Acct: [id number] Name: CHUCKIEAMAURY SHARMAMOND Rep #:[id number] : 1940 84 From: Aurelia chan MD PCP: Dr. Jakob Flower MD Status:[facility] Location: [place] [address] History and Physical Date of Admission: 12/27/24 [...] 40 mg PO DAILY cholesterol #90 tabs 09/03/2312/10/24 Rx hydralazine 50 mg tablet 100 mg [...] Upper GI bleed Atherosclerotic heart disease of enterprise coronary artery without angina pectoris Premature atrial contractions Atrial fibrillation and flutter senior care (current) use 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 Hematemesis/vomiting blood Upper [...] mesh placement with the patient in detail. Aurelia Umaña MD Pager: [facility] [address] [place] [address], [address] [place] [address] Office: I have examined the patient and the H&P has been reviewed. There are no clinicalchanges since date of exam. 12/27/24 1011 <Electronically signed by Aurelia Umaña MD> Cosigner Signature (if applicable): CC: Dr. Aurelia Umaña MD; Dr. Jakob Flower MD~ Signed [facility] Work Phone: 1([phone]) 528-741006-30-2025 Procedure [facility] 12-27-2024 [facility] Hospital Discharge instructionsAmbulatory Orders* 12 Lead EKG [[facility]] Time Frame: 12/16/24, Location: None Selected [facility] Work Phone: 1(794) 675-654405-25-2025 Radiology Diagnostic study note [facility] Imaging Services [address] [place] [id number] CTA Abd/Pelvis W/WO Contrast MR#: [id number] Acct: [id number] Name: AMAURY BLANK Rep #: [id number] : 1940 M 84 From: Cheo Perez MD PCP: Dr. Rosa Maria Santacruz MD Status: REG CLI Study:CTA Abd/Pelvis W/WO Contrast Date of Ex am: 11/18/24 Exam# [id number] Ordering Dr: Terese Amaya MD PROCEDURE: CTA ABD/PELVIS W/WO CONTRAST 11/18/2024 [...] IMPRESSION: Atherosclerosis with multifocal stenosis. [facility] CC: Dr. Rosa Maria Santacruz MD; Dr. Singh Amaya MD ~ [employer]: Signed [facility]05-12-2025 Discharge summary [facility] Medical Records Department [address] [place] [address] Emergency Department Summary 11/08/24 MR#: [id number] Acct: [id number] Name: AMAURY BLANK Rep #:[id number] : 1940 84 From: Frederick Roberts MD PCP: Dr. Rosa Maria Santacruz MD Status:REG ER Location: ED HPI History of Present Illness Chief Complaint: Abn Labs Informant: patient Narrative Narrative: 84-year-old male was at his flower maker today for routine visit, he sees him for anemia of chronickidney disease. His potassium was elevated when his labs came back so he was directed to come to the ER. Patient states he is asymptomatic. He has been urinating without difficulty. He does not see ne phrology. [facility] Medical History Multiple excoriations Anemia Pulmonary hypertension [...] Upper GI bleed Atherosclerotic heart disease of enterprise coronary artery without angina pectoris Premature atrial contractions Atrial fibrillation and flutter senior care (current) use 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 Hematemesis/vomiting blood Upper [...] (Auto) 67.9 Lymph % (Auto) 16.3 L [place] % (Auto) 10.1 H Eos % (Auto) [...] - As soon as possible Print Language: Malian Disposition Disposition: Home, Self Care What to do if you have Problems For any increased pain, shortness of breath, bleeding, nausea or vomiting, chestpain, or any unexpected problems, contact your Primary Care Provider. Call [facility] ([phone]) or report tothe closest Emergency Room. Call 911 if necessary. 11/08/242204 Cosigner Signature (if applicable): CC: Dr. Rosa Maria Santacruz MD; Dr. Mathieu Mcintyre MD ~ Signed [facility]05-12-2025 Evaluation note* Diagnosis Onset Date Resolution Status Admit Date Iron deficiency anemia acute 2024 12:51pm Anemia chronic November 08, 2024 12:51pm Left inguinal hernia acute December 10, 2024 1:02pm [facility] Work Phone: [phone]) 839-902905-12-2025 Evaluation note* Diagnosis Onset Date Resolution Status Admit Date Anemia chronic November 08, 2024 12:51pm Iron deficiency anemia chronic Ma y 2024 12:51pm Left inguinal hernia acute December 10, 2024 1:02pm Anemia chronic March 03, 2025 10:57am Iron deficiency anemia chronic Se pt2024 10:57am [facility] Work Phone: 1([phone]) 811-671305-12-2025 Discharge summary Author Frederick Roberts [facility] Note Date/Time November 08, 2024 10:05 pm [facility] Medical Records Department [address] [place] [address] Emergency Department Summary 11/08/24 MR#: [id number] Acct: [id number] Name: AMAURY BLANK Rep #:[id number] : 1940 84 From: Frederick Roberts MD PCP: Dr. Rosa Maria Santacruz MD Status:REG ER Location: ED HPI History of Present Illness Chief Complaint: Abn Labs Informant: patient Narrative Narrative: 84-year-old male was at his flower maker today for routine visit, he sees him for anemia of chronic kidney disease. His potassium was elevated when his labs came back so he was directed to come to the ER. Patient states he is asymptomatic. He has been urinating without difficulty. He does not see nephrology. 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 Call [facility] ([phone]) or report to the closest Emergency Room. Call 911 if necessary. 11/08/242204 <Electronically signed by Frederick Roberts MD> Cosigner Signature (if applicable): CC: Dr. Rosa Maria Santacruz MD; Dr. 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, resolv ed October 01, 2024 12:52pm [facility] Work Phone: 1(175) 532-227704-04-2025 Evaluation note* Diagnosis Onset Date Resolution Status Admit Date Atrial fibrillation acute October 01, 2024 12:52pm Hyperlipidemia acute October 01, 2024 12:52pm Carotid artery stenosis chronic A pril 2024 12:52pm Coronary artery disease chronic A pril 2024 12:52pm Essential hypertension chronic Ap ril 2024 12:52pm 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, resolv ed October 01, 2024 12:52pm Iron deficiency anemia acute Ma y 2024 12:51pm Anemia chronic November 08, 2024 12:51pm [facility] Work Phone: 1(990) 305-429204-04-2025 Evaluation note* Diagnosis Onset Date Resolution Status Admit Date Atrial fibrillation acute October 01, 2024 12:52pm Hyperlipidemia acute October 01, 2024 12:52pm Carotid artery stenosis chronic A pril 2024 12:52pm Coronary artery disease chronic A pril 2024 12:52pm Essential hypertension chronic Ap ril 2024 12:52pm 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, [facility] ed October 01, 2024 12:52pm Iron deficiency anemia acute 2024 12:51pm Anemia chronic November 08, 2024 12:51pm Left inguinal hernia acute December 10, 2024 1:02pm [facility] Work Phone: 1(991) 889-846605-13-2024 Discharge summary Author Hans Armendariz [facility] November 10, 2023 7:14pm Note Date/Time November 10, 2023 5:27p [facility] Medical Records Department [address] [place] [address] Emergency Department Summary 11/10/23 MR#: [id number] Acct: [id number] Name: AMAURY BLANK Rep #:[id number] : 1940 83 From: Hans Armendariz MD PCP: Dr. Rosa Maria Santacruz MD Status:REG ER Location: ED HPI History of Present Illness Chief Complaint: Abn Labs Narrative Narrative: 83-year-old male past medical history of atrial fibrillation, ulcerative colitisin remission, anemia, and chronic kidney disease presents for abnormal laboratory work. He saw his flower maker/oncologist Dr. Mcintyre for anemia today. He stated that that was fine, but he received a call that his potassium was high. He denies any symptoms. No chest pain, no shortness of breath, no fatigue. She still does make urine. Who presents because of reported hyperkalemia. [facility] Medical History Alcohol use Anemia Atherosclerotic heart disease of enterprise coronary artery without angina pectoris Atrial fibrillation [...] Hypertension Hypertension Injury of head and neck senior care (current) use 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 Mitral valve insufficiency [...] (Auto) 64.1 Lymph % (Auto) 18.7 L [place] % (Auto) 10.1 H Eos % (Auto) [...] your Primary Care Provider. Call [facility] ([phone]) or report to the closest Emergency Room. Call 911 if necessary. 11/10/231913 <Electronically signed by Hans Armendariz MD> Cosigner Signature (if applicable): CC: Dr. Rosa Maria Santacruz MD ~ Signed [facility] Work Phone: 1(504) 305-517705-13-2024 Hospital Discharge instructions Additional Instructions Have your potassium rechecked in 1 to 2 days by your primary care physician or Dr. Dozier [facility] Work Phone: 1(340) 481-547603-13-2024 Progress note Author Warren Sampson [facility] September 10, 2023 1:53pm Note Date/Time September 10, 2023 1:5 3pm [facility] [address] [place] [address] Progress Note - Wound Care 09/10/23 1351 MR#: [id number] Acct: [id number] Name: AMAURY BLANK Rep #:[id number] : 1940 83 From: Warren Wallace PM [...] come to his home for dressing changes Karlos. He presents today to the wound care [...] Start: 09/03/23 13:02 Freq: Status: Active Protocol: SURYAEXT Activity Type Activity Date Activity User E-sign Co-sign Detail Recorded Client Recorded Date Recorded By Document 03/06/24 13:02 KW Desktop 09/03/23 13:09 KW Document 09/10/23 12:59 KW Desktop 09/10/23 13:09 KW 09/03/23 09/10/23 13:02 12:59 - Today's Visit Information Type of service Follow-up Visit Follow-up Visit (Physician/METAL BONDING WORKER (Physician/METAL BONDING WORKER ) ) Arrival Mode Ambulatory, Ambulatory, Walker [...] 09/03/23 13:02 KW Desktop 09/03/23 13:09 KW Document 09/10/23 12:59 [...] Recorded Date Recorded By Document 09/03/23 13:13 Desktop 09/03/23 13:19 Document 09/10/23 13:22 Laptop 09/10/23 13:23 09/03/23 09/10/23 13:13 13:22 Wound Center Nurse [...] Document 09/10/23 13:23 JF Laptop 09/10/23 13:30 Edit Result 09/10/23 13:23 JF (1) Laptop [...] Is Patient Pain Free? Yes Yes - Visit Discharge Discharge Condition Stable Stable [...] patient to be measured and fitted at [facility]. Patient did state that he has multiple Tubigrip's and will use those until he needs to go to [facility]. He will continue to take the antibiotic as written. He is grateful for his care. It was educated the patient if he has any new issues she is to follow-up with Dr. Sampson in his private office. He was understanding of this. Patient is grateful for his care and will follow-up as needed. 09/10/23 7545 <Electronically signed by Warren Sampson DPDeep> Cosigner Signature (if applicable): CC: ~ Signed [facility] Work Phone: 1(366) 380-360603-06-2024 Progress note Author Warren Sampson [facility] September 03, 2023 1:25pm Note Date/Time September 03, 2023 1:25 pm [facility] [address] [place] [address] Progress Note - Wound Care 09/03/23 1322 MR#: [id number] Acct: [id number] Name: AMAURY BLANK Rep #:[id number] : 1940 83 From: Warren Sampson D [...] Recorded Date Recorded By Document 09/03/23 13:02 Hibernater Desktop 09/03/23 13:09 KW 09/03/23 13:02 WC - Today's Visit Information Type of service Follow-up Visit (Physician/METAL BONDING WORKER ) Arrival Mode Ambulatory, Walker Patient Identification [...] Recorded Date Recorded By Document 09/03/23 13:02 Kyogerktop 09/03/23 13:09 KW 09/03/23 13:02 Wound Center [...] Recorded Date Recorded By Document 09/03/23 13:13 Desktop 09/03/23 13:19 09/03/23 13:13 Wound Center [...] 09/03/23 1325 <Electronically signed by Warren Sampson DPDeep> Cosigner Signature (if applicable): CC: ~ Signed [facility] Work Phone: 1(388) 323-849302-28-2024 Progress note Author Warren Sampson [facility] August 27, 2023 1:25pm Note Date/Time August 27, 2023 1:25pm [facility] [address] [place] [address] Progress Note - Wound Care 08/27/23 1323 MR#: [id number] Acct: [id number] Name: AMAURY BLANK Rep #:[id number] : 1940 83 From: Warren Wallace PM [...] Start: 08/06/23 14:08 Freq: Status: Active Protocol: .LOWEXPhillip Activity Type Activity Date Activity User E-sign Co-sign Detail Recorded Client Recorded Date Recorded By Document 08/06/23 14:08 KW Desktop 08/06/23 14:20 KW Document 08/13/23 13:13 KW Desktop 08/13/23 13:17 KW Document 08/20/23 13:14 Desktop 08/20/23 13:18 Document 08/27/23 13:01 KW Desktop 08/27/23 13:06 KW 08/06/23 08/13/23 08/20/23 14:08 13:13 13:14 - Today's Visit Information Type of service Follow-up Visit Follow-up Visit Follow-up Visit (Physician/METAL BONDING WORKER (Physician/METAL BONDING WORKER (Physician/METAL BONDING WORKER ) ) ) Arrival Mode Ambulatory, Ambulatory, [...] Visit Information Type of service Follow-up Visit (Physician/METAL BONDING WORKER ) Arrival Mode Ambulatory, Walker Transfer Assistance [...] 13:25 Laptop 08/13/23 13:27 Document 08/20/23 13:41 JF Laptop 08/20/23 13:46 Edit Result 08/20/23 13:41 JF (1) [id number] 08/20/23 16:26 Document 08/27/23 13:12 JF Laptop 08/27/23 13:14 [...] Date 03/30/28 03/30/28 03/30/28 -Product Lot Number [id number] 002 -Percent Used 100 100 100 -Lot number of Saline Used [id number] -Bleeding Controlled with Pressure Silver Nitrate Pressure [...] -Offloading -Other Pressure Reduction -Debridement - Subq, 20sq cm #4 R Med LE/ Trauma [...] refused Tubigrip to LLE Today 08/06/23 08/13/23 08/20/23 14:45 13:32 14:02 Wound Care Center [...] Cosigner Signature (if applicable): CC: ~ Signed [facility] Work Phone: 1(752) 980-477902-21-2024 Progress note Author Warren Sampson [facility] August 20, 2023 1:50pm Note Date/Time August 20, 2023 1:50pm [facility] [address] [place] [address] Progress Note - Wound Care 08/20/23 1344 MR#: [id number] Acct: [id number] Name: AMAURY BLANK Rep #:[id number] : 1940 83 From: Warren MARTINEZ PCP: [...] Start: 08/06/23 14:08 Freq: Status: Active Protocol: STEVE.ELA Activity Type Activity Date Activity User E-sign Co-sign Detail Recorded Client Recorded Date Recorded By Document 08/06/23 14:08 KW Desktop 08/06/23 14:20 KW Document 08/13/23 13:13 KW Desktop 08/13/23 13:17 KW Document 08/20/23 13:14 Desktop 08/20/23 13:18 08/06/23 08/13/23 08/20/23 14:08 13:13 13:14 - Today's Visit Information Type of service Follow-up Visit Follow-up Visit Follow-up Visit (Physician/METAL BONDING WORKER (Physician/METAL BONDING WORKER (Physician/METAL BONDING WORKER ) ) ) Arrival Mode Ambulatory, Ambulatory, [...] KW Document 08/20/23 13:14 Desktop 08/20/23 13:18 08/06/23 08/13/23 08/20/23 14:08 13:13 13:14 Wound [...] 14:39 Document 08/13/23 13:25 Laptop 08/13/23 13:27 08/06/23 08/13/23 14:31 13:25 [...] -Expiration Date 03/30/28 03/30/28 -Product Lot Number [id number] -Percent Used 100 100 -Lot number of Saline Used [id number] -Bleeding Controlled with Pressure Silver Nitrate -Treatment [...] Is Patient Pain Free? Yes Yes - Visit Discharge Discharge Condition Stable Stable [...] Cosigner Signature (if applicable): CC: ~ Signed [facility] Work Phone: 1(219) 657-289702-14-2024 Progress note Author Warren Sampson [facility] August 13, 2023 1:27pm Note Date/Time August 13, 2023 1:27pm [facility] [address] [place] [address] Progress Note - Wound Care 08/13/23 1325 MR#: [id number] Acct: [id number] Name: AMAURY BLANK Rep #:[id number] : 1940 83 From: Warren Wallace PM [...] 08/13/23 13:17 KW 08/06/23 08/13/23 14:08 13:13 WC - Today's Visit Information Type of service Follow-up Visit Follow-up Visit (Physician/METAL BONDING WORKER (Physician/METAL BONDING WORKER ) ) Arrival Mode Ambulatory, Ambulatory, Walker [...] Recorded Date Recorded By Document 08/06/23 14:31 JF Laptop 08/06/23 14:39 JF 08/06/23 14:31 Wound Center Nurse 2 #3 [...] Disc -Expiration Date 03/30/28 -Product Lot Number [id number] -Percent Used 100 -Bleeding Controlled with [...] => Notes: => Pt refused Tubigrip to E Today 08/06/23 14:45 Wound Care Center Nurse [...] Private Auto Notes: Pt refused Tubigrip to [facility] Today Facility Type Home Health [...] Cosigner Signature (if applicable): CC: ~ Signed [facility] Work Phone: 1(368) 456-322202-07-2024 Progress note Author Warren Sampson [facility] August 06, 2023 3:47pm Note Date/Time August 06, 2023 3 :47pm [facility] [address] [place] [address] Progress Note - Wound Care 08/06/23 1544 MR#: [id number] Acct: [id number] Name: AMAURY BLANK Rep #:[id number] : 1940 83 From: Warren Wallace PM [...] Start: 08/06/23 14:08 Freq: Status: Active Protocol: STEVE.ELA Activity Type Activity Date Activity User E-sign Co-sign Detail Recorded Client Recorded Date Recorded By Document 08/06/23 14:08 KW Desktop 08/06/23 14:20 KW 08/06/23 14:08 - Today's Visit Information Type of service Follow-up Visit (Physician/METAL BONDING WORKER ) Arrival Mode Ambulatory, Walker Patient Identification [...] Calf (cm) 35.5 Right Ankle (cm) 22.3 - Nurse 2 - General Ulcer CM Notes Start: 08/06/23 14:08 Freq: Status: Active Protocol: Activity Type Activity Date Activity User E-sign Co-sign Detail Recorded Client Recorded Date Recorded By Document 08/06/23 14:31 Laptop 08/06/23 14:39 JF 08/06/23 14:31 Wound Center Nurse 2 #3 [...] Disc -Expiration Date 03/30/28 -Product Lot Number [id number] -Percent Used 100 -Bleeding Controlled with [...] Private Auto Notes: Pt refused Tubigrip to LLE Today [...] 08/06/23 1547 <Electronically signed by Warren Sampson DPM> Cosigner Signature (if applicable): CC: ~ Signed [facility] Work Phone: 1(428) 128-438212-27-2023 Discharge summary Author Priya Sheehan [facility] June 25, 2023 2:39pm Note Date/Time June 25, 2023 2:22pm [facility] Medical Records Department [address] [place] [address] Discharge Summary 06/25/23 1421 MR#: [id number] Acct: [id number] Name: AMAURY BLANK Rep #:[id number] : 1940 82 From: Priya Sheehan MD PCP: Dr. Rosa Maria Santacruz MD Status:[facility] Prov[facility] Date of Admission: 06/20/23 Date of [...] Method of Notification: Verbal 06/20/23 10:38 Consult: Onc/Wound/finance vice president Routine Comment: Reason for Consult:: b/l Leg ulcer chronic 06/21/23 12:33 Consult: Silk Blocker / Pulmonary Medicine Routine Consulting Provider: Pulmonary Medicine [facility] Reason for Consult: acute hypoxic respiratory failure due to aspiration pneumonia EMERGENT Consult: No Notified: Yes Date Notified: 06/21/23 Time Notified: 12:33 Method of Notification: Text 06/23/23 10:32 Consult: Gastroenterology Routine Consulting Provider: [facility] Reason for Consult: acute on chronic anemia, dark stools EMERGENT Consult: No MD Notified: Yes Date Notified: 06/23/23 Time Notified: 10:32 Method of Notification: Text 06/24/23 07:37 Consult: Gastroenterology Routine Consulting Provider: [facility] Reason for Consult: iron deficiency anemia EMERGENT Consult: No MD Notified: Yes Date Notified: 06/24/23 Time Notified: [...] pneumothorax in August 2020 and was sen [facility] for CT evaluation. Had VATS. DVT [...] 40 on admission and he was given [id number]. He was admitted and managed for sinus [...] would need follow-up with his PCP and wardrobe manager to determine if aspirin should be resumed. [...] (Auto) 69.7, Lymph % (Auto) 14.1 L, [place] % (Auto) 9.2, Eos % (Auto) 5.8 [...] Lai; Daniel Jimenez; Rufus Bruner; Tierney Menendez BEADING INSTALLER Instructions Patient Instructions: Anemia, Dysphagia Aspiration Tx [...] Recorder Preventi (Urgent) Timeframe: 1 Day Facility: [facility] - Location: Cardiovascular Services Ordered By: Dr. Priya Sheehan Referrals / Follow Up: Rosa Maria Santacruz MD [Primary Care Provider] - 06/27/23 11:20 am Irving Horowitz DO [Med Staff - Active Staff] - Within 2 Weeks Karey Jordan NP, BEADING INSTALLER-C [Non-Staff -Ordering Privileges] - 07/18/23 10:30 am Disposition Disposition (needs filled in before D/C Order can be placed): Home, Self Care Charges/Coding Visit Charges Inpatient E&M: 61860 Disch Hosp >30min 06/25/23 1439 <Electronically signed by Priya Sheehan MD> Cosigner Signature (if applicable): CC: Dr. Rosa Maria Santacruz MD; Dr. Priya Sheehan MD~ Signed [facility] Work Phone: 1(734) 351-246012-27-2023 Discharge summary Author Priya [facility] June 25, 2023 2:21pm Note Date/Time June 25, 2023 2:20pm [facility] Medical Records Department [address] [place] [address] Instructions for Home/Discharge Instructions 06/25/23 1419 MR#: [id number] Acct: [id number] Name: AMUARY BLANK Rep #:[id number] : 1940 82 From: Priya Sheehan MD [...] Lai; Daniel Jimenez; Rufus Bruner; Tierney Menendez BEADING INSTALLER Instructions Patient Instructions: Anemia, Dysphagia Aspiration Tx [...] Recorder Preventi (Urgent) Timeframe: 1 Day Facility: [facility] - Location: Cardiovascular Services Ordered By: Dr. [...] MD; Dr. Rufus Bruner MD ~ Signed [facility] Work Phone: 1(203) 109-911812-27-2023 Progress note Author Robby Lai [facility] June 25, 2023 1:58pm Note Date/Time June 25, 2023 12:56pm [facility] Medical Records Department [address] [place] [address] Progress Note - Silk Blocker 06/25/23 1255 MR#: [id number] Acct: [id number] Name: AMAURY BLANK Rep #:[id number] : 1940 82 From: Robby Lai DO PCP: Dr. Rosa Maria Santacruz MD Status:ADM IN Location: [place] [address] Assessment & Plan Assessment/Plan (1) Acute respiratory [...] is DNR/DNI. This note was generated with [employer] software. It may contain incorrectwords, spelling, and [...] (Auto) 69.7, Lymph % (Auto) 14.1 L, [place] % (Auto) 9.2, Eos % (Auto) 5.8 H, Baso % (Auto) 0.9, Absolute Neuts (auto) 2.3, Absolute Lymphs (auto) 0.46 L, Nucleated RBC % 0, Differential Comment SCANNED, Diff Path Review October foll, Platelet Estimate SLT DEC, Anisocytosis RARE, [...] affect normal Charges/Coding Visit Charges Inpatient E&M: 77672 Subs Hosp L2 06/25/23 9863 <Electronically signed by Robby Lai DO> Cosigner Signature (if applicable): CC: ~ Signed [facility] Work Phone: [phone]) 953-906112-27-2023 Progress note Author Irving Friend [facility] June 25, 2023 5:08pm Note Date/Time June 25, 2023 5:07pm [facility] System Medical Records Department [address] [place] [address] Progress Note - GI 06/25/23 1100 MR#: [id number] Acct: [id number] Name: AMAURY BLANK Rep #:[id number] : 1940 82 From: Irving Horowitz DO PCP: Dr. Rosa Maria Santacruz MD Status:ADM IN Location: [place] [address] Subjective Subjective Patient underwent an upper endoscopy [...] (Auto) 69.7, Lymph % (Auto) 14.1 L, [place] % (Auto) 9.2, Eos % (Auto) 5.8 [...] 2 months Charges/Coding Visit Charges Inpatient E&M: 37721 Subs Hosp L3 06/25/23 1708 <Electronically signed by Irving Horowitz DO> Cosigner Signature (if applicable): CC: ~ Signed [facility] Work Phone: [phone]) 474-643612-26-2023 Progress note Author William Dawson [facility] June 24, 2023 3:28pm Note Date/Time June 24, 2023 10:05am [facility] Medical Records Department [facility] [place] [address] Progress Note - Silk Blocker 12/26/23 1002 MR#: [id number] Acct: [id number] Name: AMAURY BLANK Rep #:[id number] : 1940 82 From: William Dawson MD PCP: Dr. Rosa Maria Santacruz MD Status:ADM IN Location: [place] [address] Assessment & Plan Assessment/Plan (1) Acute respiratory [...] 73.5 H, Lymph % (Auto) 11.9 L, [place] % (Auto) 10.3 H, Eos % (Auto) [...] Clarity Clear, Urine pH 7.0, Ur Specific [place] 1.010, Urine Protein Negative, Urine Glucose (UA) [...] Appearance: appropriate Charges/Coding Visit Charges Inpatient E&M: 98735 Subs Hosp L2 06/24/23 1528 <Electronically signed by William Dawson MD> Cosigner Signature (if applicable): CC: ~ Signed [facility] Work Phone: [phone]) 974-723312-26-2023 Progress note Author Lakshmi Carpenter [facility] June 24, 2023 3:26pm Note Date/Time June 24, 2023 10:17am [facility] Medical Records Department [address] [place] [address] Progress Note - Cardiology 06/24/23 1016 MR#: [id number] Acct: [id number] Name: AMAURY BLANK Rep #:[id number] : 1940 82 From: Lakshmi Carpenter MD PCP: Dr. Rosa Maria Santacruz MD Status:ADM IN Location: [place] [address] <Statement entered by Lakshmi Carpenter MD - [...] 73.5 H, Lymph % (Auto) 11.9 L, [place] % (Auto) 10.3 H, Eos % (Auto) [...] Clarity Clear, Urine pH 7.0, Ur Specific [place] 1.010, Urine Protein Negative, Urine Glucose (UA) [...] 73.5 H, Lymph % (Auto) 11.9 L, [place] % (Auto) 10.3 H, Eos % (Auto) [...] Clarity Clear, Urine pH 7.0, Ur Specific [place] 1.010, Urine Protein Negative, Urine Glucose (UA) [...] (3) Hyperlipidemia: (4) Atherosclerotic heart disease of enterprise coronary artery without angina pectoris: QUALIFIERS: [place] vs. 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 Charges/Coding Visit Charges Inpatient E&M: 11147 Subs Hosp L2 06/24/23 1526 <Electronically signed by Lakshmi Carpenter MD> Cosigner Signature (if applicable): 06/24/23 1031 <Electronically signed by Teresa ARITA PA> CC: ~ Signed [facility] Work Phone: 1([phone]) 154-510312-26-[address] [facility] June 24, 2023 2:51pm Note Date/Time June 24, 2023 9:[address] [place] [address] Health System Medical Records Department [address] [place] [address] Progress Note 06/24/23 0941 MR#: [id number] Acct: [id number] Name: AMAURY BLANK Rep #:[id number] : 1940 82 From: Priya Sheehan MD PCP: Dr. Rosa Maria Santacruz MD Status:ADM IN Location: [place] [address] Subjective Subjective Patient seen and examined. He [...] 73.5 H, Lymph % (Auto) 11.9 L, [place] % (Auto) 10.3 H, Eos % (Auto) [...] Clarity Clear, Urine pH 7.0, Ur Specific [place] 1.010, Urine Protein Negative, Urine Glucose (UA) [...] pneumothorax in August 2020 and was sen [facility] for CT evaluation. Had VATS. DVT prophylaxis; SCDs Charges/Coding Visit Charges Inpatient E&M: 94067 Subs Hosp L2 06/24/23 1451 <Electronically signed by Priya Sheehan MD> Priya Sheehan MD Cosigner Signature (if applicable): CC: ~ Signed [facility] Work Phone: [phone] 600-444012-26-2023 Consult note Author Irving Friend [facility] June 24, 2023 11:41am Note Date/Time June 24, 2023 11:32am [facility] Medical Records Department [address] [place] [address] Consultation - GI 06/23/23 1131 MR#: [id number] Acct: [id number] Name: AMAURY BLANK Rep #:[id number] : 1940 82 From: Irving Horowitz DO PCP: Dr. Rosa Maria Santacruz MD Status:ADM [facility] H[facility] Consult Data Date of [...] had a CTangio of the abdomen pelvis. [facility] Medical History Alcohol use Atherosclerotic heart disease of enterprise coronary artery without angina pectoris Atrial fibrillation [...] Hyperlipidemia Hypertension Injury of head and neck senior care (current) use 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 Mitral valve insufficiency [...] 73.5 H, Lymph % (Auto) 11.9 L, [place] % (Auto) 10.3 H, Eos % (Auto) [...] Clarity Clear, Urine pH 7.0, Ur Specific [place] 1.010, Urine Protein Negative, Urine Glucose (UA) [...] 71.1 H, Lymph % (Auto) 14.8 L, [place] % (Auto) 9.7, Eos % (Auto) 3.6, [...] 3. 06/24/23 1141 <Electronically signed by Irving Horowitz DO> Cosigner Signature (if applicable): CC: TESSA Menendez; Dr. Rosa Maria Santacruz MD; Dr. William Dawson MD; Dr. Robby Lai DO; Dr. Lakshmi Carpenter MD; Dr. Kvng James MD; Dr. Daniel Jimenez MD; Dr. Oniel Moulton MD; Dr. Rufus Bruner MD~ Signed [facility] Work Phone: [phone] Procedure [facility] 06-24-2023 Procedure [facility]12-25-2023 Progress note Author Priya Sheehan [facility] June 23, 2023 12:57pm Note Date/Time June 23, 2023 10:34am [facility] Medical Records Department [address] [place] [address] Progress Note 06/23/23 1031 MR#: [id number] Acct: [id number] Name: AMAURY BLANK Rep #:[id number] : 1940 82 From: Priya Sheehan MD PCP: Dr. Rosa Maria Santacruz MD Status:ADM IN Location: [address] Subjective Subjective Patient seen and examined. He [...] 3725 2500 / 2500 Balance 1959.17 / 1959.17 -1635 / -2335 -1900 / -1900 Lab [...] pneumothorax in August 2020 and was sen [facility] for CT evaluation. Had VATS. DVT prophylaxis; SCDs Charges/Coding Visit Charges Inpatient E&M: 69863 Subs Hosp L3 06/23/23 1257 <Electronically signed by Priya Sheehan MD> Priya Sheehan MD Cosigner Signature (if applicable): CC: ~ Signed [facility] Work Phone: [phone] 660-382112-25-2023 Progress note Author William Dawson [facility] June 23, 2023 6:15am Note Date/Time June 23, 2023 6:15am [facility] Medical Records Department [address] [place] [address] Progress Note - Silk Blocker 06/23/23611 MR#: [id number] Acct: [id number] Name: AMAURY BLANK Rep #:[id number] : 1940 82 From: William Dawson MD PCP: Dr. Rosa Maria Santacruz MD Status:ADM IN Location: [place] [address] Assessment & Plan Assessment/Plan (1) Acute respiratory [...] 2725 / 3725 1000 / 1000 Balance / -1635 / -2335 -650 / -650 Lab [...] (Auto) 67.6, Lymph % (Auto) 17.2 L, [place] % (Auto) 11.7 H, Eos % (Auto) 2.6, Baso % (Auto) 0.6, Absolute Neuts (auto) 2.4, Absolute Lymphs (auto) 0.60 L, Nucleated RBC % 0, Differential Comment SCANNED, Diff Path Review October, Platelet Estimate MOD DEC, Anisocytosis 2+, Microcytosis [...] Appearance: appropriate Charges/Coding Visit Charges Inpatient E&M: 09474 Subs Hosp L2 06/23/23 0615 <Electronically signed by William Dawson MD> Cosigner Signature (if applicable): CC: ~ Signed [facility] Work Phone: [phone]) 882-147612-24-2023 Progress note Author Priya [facility] June 22, 2023 1:56pm Note Date/Time June 22, 2023 10:51am [facility] Medical Records Department [address] [place] [address] Progress Note 06/22/23 1049 MR#: [id number] Acct: [id number] Name: AMAURY BLANK Rep #:[id number] : 1940 82 From: Priya Sheehan MD PCP: Dr. Rosa Maria Santacruz MD Status:ADM IN Location: [place] [address] Subjective Subjective Patient seen and examined. He [...] % (Auto) 67.6, Lymph % (Auto)17.2 L, [place] % (Auto) 11.7 H, Eos % (Auto) 2.6, Baso % (Auto) 0.6, Absolute Neuts (auto) 2.4, Absolute Lymphs (auto) 0.60 L, Nucleated RBC % 0, DifferentialComment SCANNED, Diff Path Review October, Platelet Estimate MOD DEC, Anisocytosis 2+, Microcytosis [...] pneumothorax in August 2020 and was sen [facility] for CT evaluation. Had VATS. DVT prophylaxis; SCDs Charges/Coding Visit Charges Inpatient E&M: 30451 Subs Hosp L2 06/22/23 1356 <Electronically signed by Priya Sheehan MD> Priya Sheehan MD Cosigner Signature (if applicable): CC: ~ Signed [facility] Work Phone: 1(378) 128-740512-24-2023 Consult note Author William Dawson [facility] June 22, 2023 8:49am Note Date/Time June 22, 2023 8:48am [facility] Medical Records Department [address] [place] [address] Consultation - Silk Blocker 06/22/23 0829 MR#: [id number] Acct: [id number] Name: AMAURY BLANK Rep #:[id number] : 1940 82 From: William Dawson MD PCP: Dr. Rosa Maria Santacruz MD Status:ADM IN Location: [place] [address] Assessment & Plan Assessment/Plan (1) Acute respiratory [...] past medical history listed below, who [facility]23 secondary to progressive palpitations and shortness of breath. Patient reportedly had not been feeling well for 3 days prior to presentation. Patient states that on the day of presentation heshira a fall was able to get up. [...] Patient is unaware of ever seeing a workforce planning analyst or having a PFT. However, review of [...] state that he has been admitted in [place] previously. Patient does report a history of pleural effusions, but is unaware of when the last tap was necessary. Patient also has a history of chronic kidney disease and believes he is doing okay. Given limitations, review of systems otherwise negative from a constitutional, HEENT, respiratory, cardiovascular, GI, genitourinary, musculoskeletal, skin, neurologic, psychiatric and hematologic system unless stated above. [facility] Medical History Alcohol use Atherosclerotic heart disease of enterprise coronary artery without angina pectoris Atrial fibrillation [...] Hyperlipidemia Hypertension Injury of head and neck senior care (current) use 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 Mitral valve insufficiency [...] EST , Charges/Coding Visit Charges Inpatient E&M: 67147 Init Hosp L3 06/22/23 0849 <Electronically signed by William Dawson MD> Cosigner Signature (if applicable): CC: TESSA Menendez; Dr. Rosa Maria Santacruz MD; Dr. William Dawson MD; Dr. Robby Lai DO; Dr. Lakshmi Carpenter MD; Dr. Kvng James MD; Dr. Daniel Jimenez MD; Dr. Oniel Moulton MD; Dr. Rufus Bruner MD~ Signed [facility] Work Phone: [phone]) 367-963412-23-2023 Progress note Author Priya [facility] June 21, 2023 2:15pm Note Date/Time June 21, 2023 10:38am [facility] Medical Records Department [address] [place] [address] Progress Note 06/21/23 1035 MR#: [id number] Acct: [id number] Name: AMAURY BLANK Rep #:[id number] : 1940 82 From: Priya Sheehan MD PCP: Dr. Rosa Maria Santacruz MD Status:ADM IN Location: [place] [address] Subjective Subjective Patient seen and examined. He [...] 75.7 H, Lymph % (Auto) 12.9 L, [place] % (Auto) 9.5, Eos % (Auto) 1.0, [...] pneumothorax in August 2020 and was sen [facility] for CT evaluation. Had VATS. DVT prophylaxis; SCDs Charges/Coding Visit Charges Inpatient E&M: 88269 Subs Hosp L3 06/21/23 1415 <Electronically signed by Priya Sheehan MD> Priya Sheehan MD Cosigner Signature (if applicable): CC: ~ Signed [facility] Work Phone: 1(864) 744-719612-22-2023 Consult note Author Lakshmi Carpenter [facility] June 20, 2023 3:53pm Note Date/Time June 20, 2023 2:34pm [facility] Medical Records Department [address] [place] [address] Consultation - Cardiology 06/20/23 1421 MR#: [id number] Acct: [id number] Name: AMAURY BLANK Rep #:[id number] : 1940 82 From: Lakshmi Carpenter MD PCP: Dr. Rosa Maria Santacruz MD Status:ADM IN Location: [place] [id number]- 1 <Statement entered by Lakshmi Carpenter MD - 06/20/23 15:53> Pt seen & evaluated w/LIBERTAD. I personally interviewed & exam the pt. I was involved in all aspects of pt's orders, interpretation of results & treatment Assessment & Plan Assessment/Plan (1) Severe sinus bradycardia: (2) Hypertension: (3) Hyperlipidemia: (4) Atherosclerotic heart disease of enterprise coronary artery without angina pectoris: QUALIFIERS: [place] vs. 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 He was [...] underwent ROSI cardioversion during his hospitalization at [facility] September 2020. In August of 2020, patient was evaluated at [facility] emergency department in August 2020 for worsening shortness of breath. He was transferred to [facility] with CT surgery evaluation. He underwent VATS procedure for empyema. He was evaluated at [facility] in September 2020 for palpitations. His chest x-ray showed pneumothorax. Due to recent VATS procedure he was transferred to [facility]. He was evaluated to [facility] in October 2020 for syncope. He wastreated for acute GI losses secondary to acute sepsis secondary to acute C. difficile colitis. He was transitioned to TCU. He was evaluated by biological chemist and Xarelto therapy was discontinued on account [...] cardiac symptoms expect for his frequent falls [facility] Medical History Alcohol use Atherosclerotic heart disease of enterprise coronary artery without angina pectoris Atrial fibrillation [...] Hyperlipidemia Hypertension Injury of head and neck senior care (current) use 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 Mitral valve insufficiency [...] Charges/Coding Visit Charges Office Visits / Consults: 99895 IP Consult L3 Objective Data Vital Signs: [...] 73.4 H, Lymph % (Auto) 13.3 L, [place] % (Auto) 10.9 H, Eos % (Auto) [...] 73.4 H, Lymph % (Auto) 13.3 L, [place] % (Auto) 10.9 H, Eos % (Auto) [...] applicable): 06/20/23 1436 <Electronically signed by Teresa ARITA> CC: Dr. Rosa Maria Santacruz MD; Dr. Lakshmi Carpenter MD; Dr. Kvng James MD~ Signed [facility] Work Phone: 1(160) 337-645912-22-2023 Consult note Author Kvng James [facility] June 20, 2023 3:29pm Note Date/Time June 20, 2023 10:26am [facility] Medical Records Department [address] [place] [address] Consultation - Nephrology 06/20/23 1001 MR#: [id number] Acct: [id number] Name: AMAURY BLANK Rep #:[id number] : 1940 82 From: Jackie ZARATE PCP: Dr. Rosa Maria Santacruz MD Status:ADM IN Location: [place] [address] Documented by User: TSESA Nava 06/20/23 10:26 Assessment & Plan Assessment/Plan (1) Hyperkalemia: (2) Palpitations: (3) CKD (chronic kidney disease) stage 3, GFR 30-59 ml/min: PLAN: Plan This is an 82-year-old male with past medical history significant for coronary artery disease status post CABG x 2, history of drug-eluting stents, A-fib requiring cardioversion, history of mesenteric artery stenosis followed by Dr. Amaya, had renal Dopplers in past which did [...] is no acidemia, no acute indication for HAND FABRIC CUTTER at this time. UA pending. Will check [...] of mesenteric artery stenosis followed by Dr. Amaya, had renal Dopplers in past which did [...] extremity edema. Denies any nausea or vomiting. 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 Amaya, had renal Dopplers in past which did [...] noted to be hyperkalemic. [facility], he received calcium gluconate, [...] is no acidemia, no acute indication for HAND FABRIC CUTTER at this time. UA pending. 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 Kvng James MD~ Signed [facility] Work Phone: 1(563) 506-616912-22-2023 History and physical note Author Oniel Moulton [facility] June 20, 2023 11:06am Note Date/Time June 20, 2023 10:31am [facility] Medical Records Department [address] [place] [address] H&P Exam - Hospitalist 06/20/23 0742 MR#: [id number] Acct: [id number] Name: AMAURY BLANK Rep #:[id number] : 1940 82 From: Oniel Wallace PCP: Dr. Rosa Maria Santacruz MD Status:ADM IN Location: [place] [address] HPI - General General Date of Admission: [...] to insulin, hyperkalemia cocktail and had D10. 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 Infection Control Practitioner consult requested. Last echo in November 2022 [...] estimated creatinine clearance 23 mill per minute. Cotton Ginner Helper is consulted. Patient got total of Kayexalate [...] anemia of chronic disease. The patient follows flower maker Dr. Mcintyre 5. History of ulcerative colitis [...] with VATS : In August 2020 at [facility] after CT surgery evaluation. Had pneumothorax at [...] with no intubation. He has power of criminal attorney for health and both sons are equally power of criminal attorney for healthcare Patient does want artificial life support including intubation, tube feed, ventilator and/chest compression, central venous catheter, vasopressor and DC shock if needed Total time spent in [id number] encounter in discussion of advanced directive 17 [...] 73.4 H, Lymph % (Auto) 13.3 L, [place] % (Auto) 10.9 H, Eos % (Auto) [...] 71 06/20/23 08:55: POC Glucose 150 H 2D [...] moderately enlarged. Charges/Coding Visit Charges Inpatient E&M: 60723 Init Hosp L3 Procedures Hospitalists Procedures: 70577 Advncd Care Plan 30 Min 06/20/23 1106 <Electronically signed by Oniel Moulton MD> Cosigner Signature (if applicable): CC: Dr. Rosa Maria Santacruz MD; Dr. Oniel Moulton MD~ Signed [facility] Work Phone: 1([phone]) 784-827612-22-2023 Discharge summary Author Jakob Nowak [facility] June 20, 2023 8:02am Note Date/Time June 20, 2023 1:04am [facility] Medical Records Department [address] [place] [address] Emergency Department Summary 06/20/23 MR#: [id number] Acct: [id number] Name: AMAURY BLANK Rep #:[id number] : 1940 82 From: Jakob Orantes PCP: Dr. Rosa Maria Santacruz MD Status:ADM IN Location: [place] [address] HPI History of Present Illness Chief Complaint: [...] does have a history of atrial fibrillation. 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 WV interval was prolonged at 290 ms. QRS [...] AV block with a rate of 41. WV interval wasprolonged at 326 ms. QRS interval was normal at 120 ms. QTc interval was normal at 478 ms. [place] is borderline left axis deviation at -16. [...] 3-5 Days Disposition Disposition: Acute Care Hospital [facility] What to do if you have Problems For any increased pain, shortness of breath, bleeding, nausea or vomiting, chestpain, or any unexpected problems, contact your Primary Care Provider. Call [facility] ([phone]) or report to the closest Emergency Room. Call 911 if necessary. 06/20/23801 <Electronically signed by Jakob Nowak DO> Cosigner Signature (if applicable): CC: Dr. Rosa Maria Santacruz MD ~ Signed [facility] Work Phone: 1(821) 204-298612-22-2023 Discharge summary Author Jakob [facility] June 20, 2023 8:02am Note Date/Time June 20, 2023 1:04am [facility] Medical Records Department [address] [place] [address] Emergency Department Summary 06/20/23 MR#: [id number] Acct: [id number] Name: AMAURY BLANK Rep #:[id number] : 1940 82 From: Jakob Orantes PCP: Dr. Rosa Maria Santacruz MD Status:ADM IN Location: [address] History of Present Illness Chief Complaint: Palpitations [...] does have a history of atrial fibrillation. [facility] Medical History Alcohol use Atherosclerotic heart disease of enterprise coronary artery without angina pectoris Atrial fibrillation [...] Hyperlipidemia Hypertension Injury of head and neck senior care (current) use 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 Mitral valve insufficiency [...] 73.4 H Lymph % (Auto) 13.3 L [place] % (Auto) 10.9 H Eos % (Auto) [...] 1:51 EST Reading Location ID and State: [facility] / [place] Tel , Service support , Portable chest [...] AV block with a rate of 60. WV interval was prolonged at 290 ms. QRS [...] AV block with a rate of 41. WV interval wasprolonged at 326 ms. QRS interval was normal at 120 ms. QTc interval was normal at 478 ms. [place] is borderline left axis deviation at -16. [...] 3-5 Days Disposition Disposition: Acute Care Hospital [facility] What to do if you have Problems For any increased pain, shortness of breath, bleeding, nausea or vomiting, chestpain, or any unexpected problems, contact your Primary Care Provider. Call [facility] ([phone]) or report to the closest Emergency Room. Call 911 if necessary. 06/20/23 0802 <Electronically signed by Jakob Nowak DO> Cosigner Signature (if applicable): CC: Dr. Rosa Maria Santacruz MD ~ Signed [facility] Work Phone: 1(814) 557-307812-20-2023 Progress note Author Warren Sampson [facility] June 18, 2023 3:02pm Note Date/Time June 18, 2023 2:47pm [facility] [address] [place] [address] Progress Note - Wound Care 06/18/23 1440 MR#: [id number] Acct: [id number] Name: AMAURY BLANK Rep #:[id number] : 1940 82 From: Warren Sampson D [...] Start: 06/04/23 11:28 Freq: Status: Active Protocol: WC.LOWEXT Activity Type Activity Date Activity User E-sign Co-sign Detail Recorded Client Recorded Date Recorded By Document 06/04/23 11:30 DL Desktop 06/04/23 11:37 DL Document 06/11/23 11:37 DL Desktop 06/11/23 11:48 DL Document 06/18/23 13:53 KW Desktop 06/18/23 14:08 KW 06/04/23 06/11/23 06/18/23 11:30 11:37 13:53 - Today's Visit Information Type of service Follow-up Visit Follow-up Visit Follow-up Visit (Physician/METAL BONDING WORKER (Physician/METAL BONDING WORKER (Physician/METAL BONDING WORKER ) ) ) Arrival Mode Ambulatory, Ambulatory, [...] Medium (34-66%) Medium (34-66%) -Granulation Quality Pale [place] -Necrosis Amt Large (67-100%) Medium (34-66%) Small [...] Date 02/29/28 12/29/27 02/29/28 -Product Lot Number [id number] -Percent Used 100 100 100 -Lot number of Saline Used [id number] -Bleeding Controlled with Pressure Pressure Pressure -Treatment [...] Is Patient Pain Free? Yes Yes - Visit Discharge Discharge Condition Stable Stable [...] is to report to the emergency department [facility] for admission for neurological evaluation and [...] 06/18/23 1447 <Electronically signed by Warren Sampson DPDeep> Cosigner Signature (if applicable): CC: ~ Signed [facility] Work Phone: 1(223) 131-936212-13-2023 Progress note Author Warren Sampson [facility] June 11, 2023 1:04pm Note Date/Time June 11, 2023 1:04pm [facility] [address] [place] [address] Progress Note - Wound Care 06/11/23 1254 MR#: [id number] Acct: [id number] Name: AMAURY BLANK Rep #:[id number] : 1940 82 From: Warren MARTINEZ PCP: [...] was seen in the emergency department [facility] 06[facility]2023 secondary to a fall where [...] 06/11/23 11:48 DL 06/04/23 06/11/23 11:30 11:37 WC - Today's Visit Information Type of service Follow-up Visit Follow-up Visit (Physician/METAL BONDING WORKER (Physician/METAL BONDING WORKER ) ) Arrival Mode Ambulatory, Ambulatory, Walker [...] Numeric Is Patient Pain Free? Yes Yes STEVE - Nurse 1 - General Ulcer Measurement [...] 12:09 11:54 Wound Center Nurse 2 #5 R Hodgson, Inf -Time 11:57 -Correct Patient Yes [...] -Expiration Date 02/29/28 12/29/27 -Product Lot Number [id number] -Percent Used 100 100 -Lot number of Saline Used [id number] -Bleeding Controlled with Pressure Pressure -Treatment Response [...] Is Patient Pain Free? Yes Yes - Visit Discharge Discharge Condition Stable Stable [...] Cosigner Signature (if applicable): CC: ~ Signed [facility] Work Phone: 1(122) 977-187212-08-2023 Hospital Discharge instructions Additional Instructions Follow-up with your primary care physician for wound check in 3 to 5 days. You may also follow-up with the wound center to follow the wound until it has healed.[facility] Work Phone: 1(421) 452-824212-06-2023 Progress note Author Warren Sampson [facility] June 04, 2023 1:52pm Note Date/Time June 04, 2023 1 :52pm [facility] [address] [place] [address] Progress Note - Wound Care 06/04/23 1346 MR#: [id number] Acct: [id number] Name: AMAURY BLANK Rep #:[id number] : 1940 82 From: Warren Wallace PM [...] Post-Debridement Measurements and Additional Note: Post-Debridement Measurements/Treatment [facility] Nurse 1 - General Ulcer Assessment Start: 06/04/23 11:28 Freq: Status: Active Protocol: STEVE.LOWEXT Activity Type Activity Date Activity User E-sign Co-sign Detail Recorded Client Recorded Date Recorded By Document 06/04/23 11:30 DL Desktop 06/04/23 11:37 DL 06/04/23 11:30 - Today's Visit Information Type of service Follow-up Visit (Physician/METAL BONDING WORKER ) Arrival Mode Ambulatory, Walker Transfer Assistance [...] DL Desktop 06/04/23 11:37 DL 06/04/23 11:30 Wound Center [...] Epifix -Expiration Date 02/29/28 -Product Lot Number [id number] -Percent Used 100 -Lot number of Saline Used [id number] -Bleeding Controlled with Pressure -Treatment Response Procedure [...] Cosigner Signature (if applicable): CC: ~ Signed [facility] Work Phone: 1(418) 413-900911-22-2023 Progress note Author Warren Sampson [facility] May 21, 2023 2:30pm Note Date/Time May 21, 2023 2:30pm [facility] [address] [place] [address] Progress Note - Wound Care 05/21/23 1427 MR#: [id number] Acct: [id number] Name: AMAURY BLANK Rep #:[id number] : 1940 82 From: Warren Wallace PM [...] Date Recorded By Document 04/30/23 09:57 KW [id number] 04/30/23 10:07 KW Document 05/07/23 13:29 KW Desktop 05/07/23 13:37 KW Document 05/14/23 14:28 NR Desktop 05/14/23 14:36 NR Document 05/21/23 13:21 Desktop 05/21/23 13:29 04/30/23 05/07/23 05/14/23 09:57 13:29 14:28 - Today's Visit Information Type of service Follow-up Visit Follow-up Visit Follow-up Visit (Physician/METAL BONDING WORKER (Physician/METAL BONDING WORKER (Physician/METAL BONDING WORKER ) ) ) Arrival Mode Ambulatory, Ambulatory, [...] Visit Information Type of service Follow-up Visit (Physician/METAL BONDING WORKER ) Arrival Mode Ambulatory, Walker Transfer Assistance [...] Document 05/21/23 13:21 GM Desktop 05/21/23 13:29 GM 05/07/23 05/14/23 05/21/23 13:29 14:28 13:21 Wound [...] (34-66%) Large (67-100%) Medium (34-66%) -Granulation Quality [place] Red -Slough/Fibrin Yes -Necrosis Amt Small (1-33%) [...] Date 12/29/27 12/29/27 12/29/27 -Product Lot Number [id number] 018 -Percent Used 100 100 100 -Lot number of Saline Used [id number] -Bleeding Controlled with Pressure Pressure Pressure -Treatment [...] Cosigner Signature (if applicable): CC: ~ Signed [facility] Work Phone: 1([phone]) 427-906811-15-2023 Progress note Author Warren Sampson [facility] May 14, 2023 4:25pm Note Date/Time May 14, 2023 4:25pm [facility] [address] [place] [address] Progress Note - Wound Care 05/14/23 1621 MR#: [id number] Acct: [id number] Name: AMAURY BLANK Rep #:[id number] : 1940 82 From: Warren Wallace PM PCP: Dr. Paco Norman MD Status:R EG RCR Location: WC History of Present Illness Date of Service: [...] Date Recorded By Document 04/30/23 09:57 KW [id number] 04/30/23 10:07 KW Document 05/07/23 13:29 KW Desktop 05/07/23 13:37 KW Document 05/14/23 14:28 NRL Desktop 05/14/23 14:36 NRL 04/30/23 05/07/23 05/14/23 09:57 13:29 14:28 - Today's Visit Information Type of service Follow-up Visit Follow-up Visit Follow-up Visit (Physician/METAL BONDING WORKER (Physician/METAL BONDING WORKER (Physician/METAL BONDING WORKER ) ) ) Arrival Mode Ambulatory, Ambulatory, [...] Amt Medium (34-66%) Large (67-100%) -Granulation Quality [place] -Slough/Fibrin Yes -Necrosis Amt Small (1-33%) Small [...] Date 12/29/27 12/29/27 12/29/27 -Product Lot Number [id number] 018 -Percent Used 100 100 100 -Lot number of Saline Used [id number] -Bleeding Controlled with Pressure Pressure Pressure -Treatment [...] I73.9 - Peripheral vascular disease, unspecified 05/14/23 3798 <Electronically signed by Warren Sampson DPM> Cosigner Signature (if applicable): CC: ~ Signed [facility] Work Phone: 1(529) 300-721311-08-2023 Progress note Author Warren Sampson [facility] May 07, 2023 2:04pm Note Date/Time May 07, 2023 2 :04pm [facility] [address] [place] [address] Progress Note - Wound Care 05/07/23 1401 MR#: [id number] Acct: [id number] Name: AMAURY BLANK Rep #:[id number] : 1940 82 From: Warren Wallace PM [...] Date Recorded By Document 04/30/23 09:57 KW [id number] 04/30/23 10:07 KW Document 05/07/23 13:29 KW Desktop 05/07/23 13:37 KW 04/30/23 05/07/23 09:57 13:29 - Today's Visit Information Type of service Follow-up Visit Follow-up Visit (Physician/METAL BONDING WORKER (Physician/METAL BONDING WORKER ) ) Arrival Mode Ambulatory, Ambulatory, Walker [...] Attached -Granulation Amt Medium (34-66%) -Granulation Quality [place] -Necrosis Amt Small (1-33%) -Necrotic Tissue Type Adherent Slough -Texture (Adelina-wound Skin Appearance) Assessed,Callus -Moisture (Adelina-wound Skin Appearance) Assessed,Dry/ Scaly -Color (Adelina-wound Skin Appearance) Assessed -Temperature (Adelina-wound Skin No Abnormality Appearance) (Pt Warm) -Ulcer Cleansing Rinsed/ Irrigated with Saline -Anesthetic Used 5% Lidocaine Gel - Nurse 2 - General Ulcer CM [...] -Expiration Date 12/29/27 12/29/27 -Product Lot Number [id number] -Percent Used 100 100 -Lot number of Saline Used [id number] -Bleeding Controlled with Pressure Pressure -Treatment Response [...] Cosigner Signature (if applicable): CC: ~ Signed [facility] Work Phone: 1(689) 552-245711-01-2023 Progress note Author Warren Sampson [facility] April 30, 2023 10:22am Note Date/Time April 30, 2023 1 0:22am [facility] [address] [place] [address] Progress Note - Wound Care 04/30/23 1018 MR#: [id number] Acct: [id number] Name: AMAURY BLANK Rep #:[id number] : 1940 82 From: Warren Wallace PM PCP: Dr. Paco Norman MD Status:R EG RCR Location: History of Present Illness Date of Service: 04/30/23 Chief Complaint: Left foot ulcerations History of [...] Date Recorded By Document 04/30/23 09:57 KW [id number] 04/30/23 10:07 KW 04/30/23 09:57 - Today's Visit Information Type of service Follow-up Visit (Physician/METAL BONDING WORKER ) Arrival Mode Ambulatory, Walker Patient Identification [...] 0-10 Numeric Is Patient Pain Free? Yes [facility] Nurse 2 - General Ulcer CM Notes [...] Epifix -Expiration Date 12/29/27 -Product Lot Number [id number] -Percent Used 100 -Lot number of Saline Used [id number] -Bleeding Controlled with Pressure -Treatment Response Procedure [...] 04/30/23 1022 <Electronically signed by Warren Sampson DPDeep> Cosigner Signature (if applicable): CC: ~ Signed [facility] Work Phone: [phone]) 877-464810-25-2023 Progress note Author Warren Sampson [facility] April 23, 2023 2:39pm Note Date/Time April 23, 2023 2 :39pm [facility] [address] [place] [address] Progress Note - Wound Care 04/23/23 1429 MR#: [id number] Acct: [id number] Name: AMAURY BLANK Rep #:[id number] : 1940 82 From: Warren Wallace PM PCP: Dr. Paco Norman MD Status:R EG RCR Location: History of Present Illness Date of Service: 04/23/23 Chief Complaint: Left foot ulcerations History of Wound: Chronic wounds left foot self treatment as well as SNF treatment Progress of Wound: Mr. Blank is a 82-year-old male presenting to the wound care center today at [facility] with a chief complaint of ulcerations to the left foot. Patient has 2 wounds to the top and heel of the left foot. Patient was recently residing in a senior living secondary to pneumonia and a hip fracture. [...] was debrided to the left heel with [employer]'s ultrasonic debrider. The left dorsal wound was debrider with a 5 mm dermal curette. Dorsal wound measures 0.9 x 0.4 x 0.1 cm. Excisional debridement of the left heel ulceration down to and including subcutaneous tissue with the Misonix ultrasonic debrider without incident. Predebridement measurement is [...] to and including subcutaneous tissue with the Misonix ultrasonic debrider without incident. Predebridement measurement is [...] 04/23/23 13:52 KW 04/16/23 04/23/23 13:07 13:46 WC - Today's Visit Information Type of service Initial Visit Follow-up Visit (Physician/METAL BONDING WORKER ) Arrival Mode Ambulatory, Ambulatory, Walker Walker [...] Bottom <Entered> (a) Communication Assessment Preferred language Malian Able to Read Yes Able to Write [...] in Ability to Perform Denies Any Declines Culture/Tenriism/Design Technology Professor Cultural/Tenriism Needs that may affect No Treatment Plan Would you allow our hospital special services director to No meet you for the purpose of spiritual/ emotional support? Design Technology Professor to contact place of synagogue No Teaching: Wound Center Discharge Instructions -Person [...] Present (0 Medium (34-66%) %) -Granulation Quality [place] -Necrosis Amt Large (67-100%) Medium (34-66%) -Necrotic [...] Amt Small (1-33%) Medium (34-66%) -Granulation Quality [place] -Necrosis Amt None Present (0 Small (1-33%) [...] By Document 04/16/23 14:10 Laptop 04/16/23 14:17 Document 04/23/23 14:15 Laptop 04/23/23 14:20 04/16/23 04/23/23 14:10 14:15 [...] Epifix -Expiration Date 12/29/27 -Product Lot Number [id number] -Percent Used 100 -Lot number of Saline Used [id number] -Bleeding Controlled with Pressure Pressure -Treatment Response [...] Recorded Date Recorded By Document 04/16/23 14:24 [facility] Desktop 04/16/23 14:27 [facility] 04/16/23 14:24 Wound Care Center Nurse 3 #2 L Heel -Ulcer Cleansing Rinsed/ Irrigated with Saline -Foul Odor after Cleansing No -Other Dressing hydrogel -Primary Dressing Covered/Secured with Dry Gauze & Roll Gauze, Secured with Tape -Other Covering per dl senior visual designer #1 L Dorsal foot -Ulcer Cleansing Rinsed/ Irrigated with Saline -Foul Odor after Cleansing No -Other Dressing antibiotic oint -Primary Dressing Covered/Secured with Dry Gauze & Roll Gauze, Secured with Tape -Other Covering per dl senior visual designer Treatment Response Procedure Tolerated Well Pain Scale: [...] to and including subcutaneous tissue with the [employer] ultrasonic debrider without incident. Predebridement measurement is [...] follow-up with vascular surgery, Dr. Lim at [facility]. 04/23/23 1439 <Electronically signed by Warren Sampson DPM> Cosigner Signature (if applicable): CC: ~ Signed [facility] Work Phone: 1(205) 944-620910-18-2023 History and physical note Author Warren Sampson [facility] April 16, 2023 3:15pm Note Date/Time April 16, 2023 3 :15pm [facility] [address] [place] [address] H&P Exam - Wound Care 04/16/23 1508 MR#: [id number] Acct: [id number] Name: AMAURY BLANK Rep #:[id number] : 1940 82 From: Warren MARTINEZ PCP: Dr. Paco Norman MD Status:R EG RCR Location: History of Present Illness Date of Service: 04/16/23 Chief Complaint: Left foot ulcerations History of Wound: Chronic wounds left foot self treatment as well as SNF treatment Progress of Wound: Mr. Blank is a 82-year-old male presenting to the wound care center today at [facility] with a chief complaint of ulcerations to the left foot. Patient has 2 wounds to the top and heel of the left foot. Patient was recently residing in a senior living secondary to pneumonia and a hip fracture. [...] symptoms. No other pedal plaintsat this time. 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 Mitral valve insufficiency [...] Unknown] arginine 7 gram-glutam 7 gram-CaHMB 1.5 dlwm-ctajm-sl-min oral pwd pkt (Fletcher (with collagen)) 1 [...] Start: 04/16/23 13:07 Freq: Status: Active Protocol: STEVE.ELA Activity Type Activity Date Activity User E-sign Co-sign Detail Recorded Client Recorded Date Recorded By Document 04/16/23 13:07 Desktop 04/16/23 13:36 DL 04/16/23 13:07 - Today's Visit Information Type of service [...] Bottom <Entered> (a) Communication Assessment Preferred language Malian Able to Read Yes Able to Write [...] in Ability to Perform Denies Any Declines Culture/Tenriism/Design Technology Professor Cultural/Tenriism Needs that may affect No Treatment Plan Would you allow our hospital special services director to No meet you for the purpose of spiritual/ emotional support? Design Technology Professor to contact place of synagogue No Teaching: Wound Center Discharge Instructions -Person [...] Attached -Granulation Amt Small (1-33%) -Granulation Quality [place] -Necrosis Amt None Present (0 %) -Structure [...] Recorded Date Recorded By Document 04/16/23 14:24 [facility] Desktop 04/16/23 14:27 [facility] 04/16/23 14:24 Wound Care Center Nurse 3 #2 L Heel -Ulcer Cleansing Rinsed/ Irrigated with Saline -Foul Odor after Cleansing No -Other Dressing hydrogel -Primary Dressing Covered/Secured with Dry Gauze & Roll Gauze, Secured with Tape -Other Covering per dl senior visual designer #1 L Dorsal foot -Ulcer Cleansing Rinsed/ Irrigated with Saline -Foul Odor after Cleansing No -Other Dressing antibiotic oint -Primary Dressing Covered/Secured with Dry Gauze & Roll Gauze, Secured with Tape -Other Covering per dl senior visual designer Treatment Response Procedure Tolerated Well Pain Scale: [...] I73.9 - Peripheral vascular disease, unspecified 04/16/23 2439 <Electronically signed by Warren Sampson DPM> Cosigner Signature (if applicable): CC: ~ Signed [facility] Work Phone: 1(229) 558-936707-26-2023 Miscellaneous Notes* Telephone Encounter - Jean Paul Mares - 01/22/2023 4:28 PM EDT Called senior living * Telephone Encounter - Jean Paul Mares - 01/13/2023 4:42 PM EDT Images from the original note were not included. Received: 3 days ago Brooke Edwards [place] [...] for the call/escalation: pt is staying at [facility].estefania called to schedule pt a post op appt tool will not allow scheduling If reason for call/escalation is discharge from ED/ER or Hospital, which facility was the patient seen at: na Was an appointment scheduled (Y/N): n Person calling if other than patient: na Return call to if other than patient: na Best contact number: [phone] Thank you, Irina Andres January 10, 2023 12:03 PM documented in [facility]-2023 NoteHNO ID: [id number] Author: Azucena Vo APRN.CNP Service: ? Author Type: Nurse Practitioner Type: Progress Notes Filed: 01/22/2023 12:19 PM Note Text: NEUROSURGERY FOLLOW UP OFFICE NOTE Azucena Vo APRN.CNP Date of visit: January 22, 2023 Patient Name: Mr.Vincent Calvin Blank Date of : 1940 Current Age: [age] year old Sex: male MRN/E# [id number] Last Office Visit: Hospital follow-up Chief Complaint: [...] and rhinorrhea. Eye (more content not included)...[facility]07-26-2023 History of Present illness Narrative* FegatAzucena frank APRN.CNP - 01/22/2023 11:30 AM EDT NEUROSURGERY FOLLOW UP OFFICE NOTE Azucena Vo APRN.CNP Date of visit: January 22, 2023 Patient Name: Mr.Vincent Calvin Blank Date of : 1940 Current Age: [age] year old Sex: male MRN/E# [id number] Last Office Visit: Hospital follow-up Chief Complaint: [...] as needed LORENE Waters Neurosurgery Nurse Practitioner [facility] [place] [facility] Follow Up: Return for new or worsening symptoms. documented in this encounterDiley [facility] Center2023 NoteHNO ID: [id number] Author: Priscilla Mjeia RT(Calvin) Service: ? Author Type: Forensic Science Examiner Type: Progress Notes Filed: 01/20/2023 12:06 PM [...] PERIPHERAL IV DATA: Not applicable SIGNED BY: SOFIE Ramon) January 20, 2023 12:06 [facility]2023 History of Present illness Narrative* Priscilla Mejia RT(R) - 01/20/2023 11:20 AM EDT Radiology Service Progress Note PATIENT NAME: Amaury [...] BY: RT Yenny(R) January 20, 2023 12:06 PM documented in this encounterD[facility]07-13-2023 NoteHNO ID: [id number] Author: Nancy Newton RN Service: Care Management Author Type: Registered Nurse Type: Care Mgt Progress Note Filed: 01/09/2023 1:50 PM Note Text: CARE MANAGEMENT DISCHARGE NOTE SERVICE DATE: January 09, 2023 SERVICE TIME: 1:46 PM Admission Date: 01/03/2023 LOS: 6 days Discharge Arrangement Discharge Arrangement: [facility] Facility Was an expedited discharge program used?: Yes Type: Medicare ACO 3 Day Waiver Services Arranged Provider Name: [facility] Phone: Caregiver Assessment Caregiver is ready, willing and able to meet the patient's needs as recommended by the inter-professional team: Yes Name of Caregiver: self Transportation Arrangements Transportation Arrangements: Ambulance Transportation Agency and Phone #:: [facility] ( [facility], [place] ) [phone] / [phone] Date of Trip: 01/09/23 Time of Trip: 1300 Type of Service: BLS Non-emergency Is Patient Medicaid Pending?: No Was transportation financial coverage discussed with family?: Patient 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 Destination: [facility] Financial Care Management Responsibility: None Handoff Communication: Additional Information: Patient discharged today, to return to [facility]. No need for 7000 as pt never went to the community. Sent dc summary and COVID. [facility] to transport via cot at 1300. Transport folder on chart notified floor RN . Updated patient at bedside, agreeable. Discharge Information Row Name ED to Hosp-Admission (Discharged) from 01/03/[address] [facility] Agency [facility] SIGNATURE: Nancy Newton RN PATIENT NAME: Amaury Blank DATE: January 09, 2023 TIME: 1:45 PM CONTACT #: [phone] CARE MANAGEMENT PROGRESS NOTE SERVICE DATE: 01/09/2023 SERVICE TIME: 1230 LOS: 6 days IMM Follow Up Copy Given: Yes Copy given to:: Patient Method: In Person Verbalized understanding SIGNATURE: Nancy Newton RN PATIENT NAME: Amaury Blank DATE: January 09, 2023 TIME: 1:45 PM PAGER/CONTACT #: [phone] 01-09-2023 NoteHNO ID: [id number] Author: Errol Farfan RN Service: ? Author Type: Registered Nurse Type: Nursing Progress Note Filed: 01/09/2023 1:34 PM Note Text: Other: report called to Al[facility] at [facility]07-13-2023 NoteHNO ID: [id number] Author: Sabine Bae APRN.CNP Service: General Surgery [...] vulnerability screens were reviewed by Sabine Bae APRN.METAL BONDING WORKER and results were communicated to surgeon/surgical team who devised the above plan. The plan was communicated to the patient and family/caregivers: Via nursing dc instructions Patient/Caregivers were given educational material on delirium, falls, and mobility. Patient's primary doctor: Elida Borges MD This plan was communicated to the patient's primary doctor: Through Electronic Health Record (EHR) messaging Disposition: [facility] NoteHNO ID: [id number] Author: Antwan Andres PA-C Service: General Surgery Author Type: Physician Retail Business Development Manager Type: Progress Notes Filed: 01/09/2023 12:00 PM Note Text: Trauma Surgery Progress Note SERVICE DATE: 01/09/2023 Trauma Service Pager: For questions or concerns Mon-Fri 6a-5p please page [phone]. After 5pm and on Weekends and Holidays, please page [phone] if in ICU or [phone] if on RNF. SUBJECTIVE: NAEON. Patient denied [...] 01/08/23699 - 01/09/2365801/09/23699 - 01/10/23 0659 Shift 4336-4571 5831-7362 5646-1101 24 Hour Total 2913-3945 7252-5178 4807-9942 24 Hour Total INTAKE PO 240 240 [...] foot 01/07/2023 Arterial insufficiency with ischemic ulcer ([facility]) 01/07/2023 ABLA (acute blood loss anemia) 01/06/2023 Closed displaced comminuted fracture of shaft of left femur ([facility]) 01/06/2023 Malnutrition of moderate degree ([facility]) 01/05/2023 Coronary artery 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) 01/04/2023 Primary hypertension 01/04/2023 Other hyperlipidemia 01/04/2023 COPD (chronic obstructive pulmonary disease) ([facility]) 01/04/2023 Fall 01/04/2023 Stasis ulcer ([facility]) 01/03/2023 Skin tear of left elbow without [...] (left foot) b (more content not included)...[facility]07-13-2023 NoteHNO ID: [id number] Author: Gisell Tirado DO Service: Hospital Medicine Author Type: Physician Type: Progress Notes Filed: 01/09/2023 6:41 AM Note Text: DEPARTMENT OF HOSPITAL MEDICINE PROGRESS NOTE SERVICE DATE: 01/09/2023 SERVICE TIME: 6:39 AM Hospital Medicine/Primary Attending: Gisell Tirado DO NIGHT AND WEEKEND COVERAGE: After 7pm please page [phone] CHIEF COMPLAINT: Follow up o nMMP SUBJECTIVE: [...] and falls Will cont to follow as consultant nurse. Can be discharged from my standpoint. Medication and Non-Pharmacologic VTE Prophylaxis/Anticoagulants Anticoagulant AND Antiplatelet Medications (From admission, onward) Start Dose Route Frequency Last Action Ordered Stop 01/07/23 0700 heparin 5,000 Units injection 5,000 Units SUBCUTANEOUS EVERY 8 HOURS Given, 01/09 0526 01/07/23 0642 -- 01/05/23 0645 activity - mobilize patient (nv,sd) 01/03/23 1400 pneumatic compression stockings ([place] 01/03/23 1400 graduated compression stockings ([place] Lines, Drains, and Airways Line Duration Peripheral 01/04/23 1415 Right Antecubital 20 Gauge 4 days VTE Prophylaxis: Heparin 5000 units Sub Q BID Disposition: SNF Functional Status Prior to Admit: Medical Necessity for Cont (more content not included)...[facility]07-12-2023 NoteHNO ID: [id number] Author: Nancy Newton RN Service: Care Management Author Type: Registered Nurse Type: Care Mgt Progress Note Filed: 01/08/2023 4:47 PM Note Text: CARE MANAGEMENT PROGRESS NOTE SERVICE DATE: 01/08/2023 SERVICE TIME: 4:44 PM LOS: 5 days [facility] is able to accept tomorrow with the wound vac, sent updates notes. Will not need a new 7000. Pt will need transport to SNF for tomorrow. CM to follow clinical progress. SIGNATURE: Nancy Newton RN PATIENT NAME: Amaury Blank DATE: January 08, 2023 TIME: 4:44 PM PAGER/CONTACT #: [phone] [facility] Medical Center 01-08-2023 NoteHNO ID: [id number] Author: Joao Coe DO Service: General Surgery Author Type: Resident Type: Progress Notes Filed: 01/08/2023 1:49 PM Note Text: Trauma Surgery Progress Note SERVICE DATE: 01/07/2023 Trauma Service Pager: For questions or concerns Mon-Fri 6a-5p please page [phone]. After 5pm and on Weekends and Holidays, please page [phone] if in ICU or [phone] if on RNF. SUBJECTIVE: Pt VSS. Not [...] 01/08/23 0659 01/08/23699 - 01/09/23 0659 Shift 9827-2868 9541-1896 6207-5580 24 Hour Total 1351-4443 6476-3955 3711-4595 24 Hour Total INTAKE PO 260 260 [...] foot 01/07/2023 Arterial insufficiency with ischemic ulcer ([facility]) 01/07/2023 ABLA (acute blood loss anemia) 01/06/2023 Closed displaced comminuted fracture of shaft of left femur ([facility]) 01/06/2023 Malnutrition of moderate degree ([facility]) 01/05/2023 Coronary artery 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) 01/04/2023 Primary hypertension 01/04/2023 Other hyperlipidemia 01/04/2023 COPD (chronic obstructive pulmonary disease) ([facility]) 01/04/2023 Fall 01/04/2023 Stasis ulcer ([facility]) 01/03/2023 Skin tear of left elbow without [...] CT Brain stab (more content not included)...[facility] 01-08-2023 NoteHNO ID: [id number] Author: Gisell Tirado DO Service: Hospital Medicine Author Type: Physician Type: Progress Notes Filed: 01/08/2023 6:53 AM Note Text: DEPARTMENT OF HOSPITAL MEDICINE PROGRESS NOTE SERVICE DATE: 01/08/2023 SERVICE TIME: 6:47 AM Hospital Medicine/Primary Attending: Gisell Tirado DO NIGHT AND WEEKEND COVERAGE: After 7pm please page [phone] CHIEF COMPLAINT: Follow up on MMP SUBJECTIVE: [...] and falls Will cont to follow as consultant nurse. Medication and Non-Pharmacologic VTE Prophylaxis/Anticoagulants Anticoagulant AND Antiplatelet Medications (From admission, onward) Start Dose Route Frequency Last Action Ordered Stop 01/07/23 0700 heparin 5,000 Units injection 5,000 Units SUBCUTANEOUS EVERY 8 HOURS Given, 01/08 0550 01/07/23 0642 -- 01/05/23 0645 activity - mobilize patient (nv,sd) 01/03/23 1400 pneumatic compression stockings ([place] 01/03/23 1400 graduated compression stockings [place] Lines, Drains, and Airways Line Duration Peripheral 01/04/23 1415 Right Antecubital 20 Gauge 3 days VTE Prophylaxis: Heparin 5000 units Sub Q BID Disposition: SNF Functional Status Prior to Admit: Medical Necessity for Continued Hospitalization Per primary team Plan of care discussed with: Patient SIGNAT (more content not included)...[facility]07-11-2023 Note HNO ID: [id number] Author: Nancy Newton RN Service: Care Management Author Type: Registered Nurse Type: Care Mgt Progress Note Filed: 01/07/2023 3:49 PM Note Text: CARE MANAGEMENT PROGRESS NOTE SERVICE DATE: 01/07/2023 SERVICE TIME: 3:46 PM LOS: 4 days [facility] is able to accept back, sent updates as patient now has wound vac. Pt states he thinks he is out of SNF coverage, asked SNF for clarification. Pt will need transport at [facility] to follow clinical progress. SIGNATURE: Nancy Newton RN PATIENT NAME: Amaury Blank DATE: January 07, 2023 TIME: 3:45 PM PAGER/CONTACT #: [phone] [facility] Center 01-07-2023 History of Past illness Narrative* Problem Noted Date Diagnosed Date Resolved Date Open wound of left foot 01/07/202312/28 Closed displaced comminuted fracture of shaft of left femur 01/06/2023 01/09/2023 Fall 01/04/2023 01/09/2023 Head injury, acute, without loss of consciousness, sequela 01/03/2023 01/09/2023 Stasis ulcer 01/03/2023 01/09/2023 documented as of this encounter (statuses as of 01/22/2023) [facility]07-11-2023 History of Past illness Narrative* Problem Noted Date Diagnosed Date Resolved Date Open wound of left foot 01/07/202312/28 Closed displaced comminuted fracture of shaft of left femur 01/06/2023 01/09/2023 Fall 01/04/2023 01/09/2023 Head injury, acute, without loss of consciousness, sequela 01/03/2023 01/09/2023 Stasis ulcer 01/03/2023 01/09/2023 documented as of this encounter (statuses as of 01/23/2023) [facility]07-11-2023 History of Past illness Narrative* Problem Noted Date Diagnosed Date Resolved Date Open wound of left foot 01/07/202312/28 Closed displaced comminuted fracture of shaft of left femur 01/06/2023 01/09/2023 Fall 01/04/2023 01/09/2023 Head injury, acute, without loss of consciousness, sequela 01/03/2023 01/09/2023 Stasis ulcer 01/03/2023 01/09/2023 documented as of this encounter (statuses as of 05/04/2023) [facility]07-11-2023 NoteHNO ID: [id number] Author: Sydni Ulises Service: Pharmacy Author Type: ? Type: Progress Notes Filed: 01/07/2023 10:47 AM Note Text: Attestation signed by Coy Angulo RPh at 01/07/2023 3:54 PM I have reviewed the pharmacy resource tech's assessment and agree with the written information. I have reviewed the patient's opioid use WELLNESS RN and during current hospitalization. Coy Angulo PharmD [phone] HPI: VH is a 82 WM presents to [facility] from a ground height fall and hit [...] reviewed according to the revised Beers Criteria.[facility]07-11-2023 NoteHNO ID: [id number] Author: Antwan B Dmitry, PA-C Service: General Surgery Author Type: Physician Retail Business Development Manager Type: Progress Notes Filed: 01/07/2023 9:31 AM Note Text: Trauma Surgery Progress Note SERVICE DATE: 01/07/2023 Trauma Service Pager: For questions or concerns Mon-Fri 6a-5p please page [phone]. After 5pm and on Weekends and Holidays, please page [phone] if in ICU or [phone] if on [...] 01/06/23699 - 01/07/2365801/07/23699 - 01/08/23 0659 Shift 0499-3324 6182-2947 4003-5860 24 Hour Total 3028-5144 1858-9109 8345-5893 24 Hour Total INTAKE PO 300 240 540 PO 300 240 540 Blood Products 300 300 Infusion Complete Volume (mL) (RBC Transfusion Instruction) 300 300 Shift Total 600 240 840 OUTPUT Urine 425 109 211 0537 Void (ml) 425 931 342 9607 Shift Total 425 153 241 2280 Weight (kg) 75 75.1 75.1 75.1 75.1 [...] comminuted fracture of shaft of left femur ([facility]) 01/06/2023 Malnutrition of moderate degree ([facility]) 01/05/2023 Coronary artery 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) 01/04/2023 Primary hypertension 01/04/2023 Other hyperlipidemia 01/04/2023 COPD (chronic obstructive pulmonary disease) ([facility]) 01/04/2023 Fall 01/04/2023 Stasis ulcer ([facility]) 01/03/2023 Skin tear of left elbow without [...] 01/05 no mas (more content not included)...[facility]07-11-2023 NoteHNO ID: [id number] Author: Marie Smyth MD Service: Orthopaedic Surgery [...] - PGY 1 5:35 AM 01/07/2023 Pager #[phone] INPATIENT ATTENDING: Dr. Rod, Errol Marley MD, [...] Recommendations: MST: Total MST Score (Calculated): 3 Valet Manager: Diet: Continue current diet Supplements: Boost Glucose Control (1x/d) Pharmacy: Consult not needed Social Work: NA Anticipated [facility]charge [facility]23 NoteHNO ID: [id number] Author: Antwan Andres PA-C Service: General Surgery Author Type: Physician Retail Business Development Manager Type: Progress Notes Filed: 01/06/2023 2:31 PM [...] Air IANDO: Date 01/05/23699 - 01/06/2365801/06/23699 - 01/07/2359 Shift 0461-2847 0739-1912 1394-1704 24 Hour Total 9902-1619 0507-6060 0341-8203 24 Hour Total INTAKE PO 120 120 [...] loss anemia) 01/06/2023 Malnutrition of moderate degree ([facility]) 01/05/2023 Coronary artery 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) 01/04/2023 Primary hypertension 01/04/2023 Other hyperlipidemia 01/04/2023 COPD (chronic obstructive pulmonary disease) ([facility]) 01/04/2023 Fall 01/04/2023 Stasis ulcer ([facility]) 01/03/2023 Skin tear of left elbow without [...] from an o (more content not included)...[facility]07-10-2023 NoteHNO ID: [id number] Author: Kasey Abernathy APRN.METAL BONDING WORKER Service: Neurosurgery Author Type: Nurse Practitioner Type: Plan of Care Filed: 01/06/2023 1:12 PM Note Text: Neurosurgery Plan of Care Note: Follow up appointment requested for 2 weeks in office. Thank you for involving us in the care of your patient. NSGY will sign off at this time. Please page or call if you have any additional neurosurgical concerns. Kasey Abernathy WIDE AREA NETWORK ADMINISTRATOR METAL BONDING WORKER Neurosurgery Pager: [phone] January 06, 2023 1:11 [facility]07-10-2023 NoteHNO ID: [id number] Author: Nancy Newton RN Service: Care Management Author Type: Registered Nurse Type: Care Mgt Initial Assessment Filed: 01/06/2023 12:51 PM Note Text: CARE MANAGEMENT: ASSESSMENT AND DISCHARGE PLAN SERVICE DATE: January 06, 2023 SERVICE TIME: 12:45 PM PCP: Elida Borges MD Primary Contact: Extended Emergency Contact Information Primary Emergency Contact: Kasi Blank Mobile Relation: Son Secondary Emergency Contact: ChuckieJus Mobile Relation: Son Admission Status: Inpatient Insurance Provider: MEDICARE A AND B Discharge Planning requested by: Per Department Practice Potential Transition Plans [facility]mediate Care Facility Advance Directives Current Advance Directive: Health Care Power of Science Editor In Chart: No Current Living Arrangements and Support Lives with: Alone Type of Residence: [facility] Does the patient have to climb stairs at home?: Yes (at home pt admitted from snf) Care Facility Name: [facility] Support: Children, Family members, Spouse/significant other How do you manage to accomplish the following: Needs Assistance: Ambulation;Transportation to appointments/community;Bathe/Shower;Dress;Meals/Meal Prep;Going to the bathroom;Medication Management Current Services/Equipment Current Post-Acute Service(s): DME Current DME Type: Walker, Cane, Rolling walker Discharge Planning Patient Goal(s): Better mobility, Increase strength, General wellness, Less pain [place] of Choice Explained: [place] of Choice Given: Yes Level of Care Discussed: [facility] Are you interested in bedside delivery [...] with patient at bedside. Pt originally from [facility], but states he has been a [facility] SNF since November and that is where he fell. +PCP, +DME, +RX, before SNF admission was driving and taking care of who is now at [facility] as well. Therapy recommending SNF, pt agreeable and would like to return to [facility]. Tasked referral to see if they can accept back. Pt will need transport [place] [facility]. CM to follow clinical progress. SIGNATURE: Nancy Newton RN PATIENT NAME: Amaury Blank DATE: January 06, 2023 TIME: 12:45 PM CONTACT #: [phone] [facility] Center07-10-2023 NoteHNO ID: [id number] Author: Errol Rod MD Service: Orthopaedic Surgery [...] stable placement of hardware s/p L SUZI Dorsey MD Orthopaedic Surgery 6:19 AM 01/06/2023 Pager #[phone] INPATIENT ATTENDING: Dr. Errol Rod MD, Urgent [...] Recommendations: MST: Total MST Score (Calculated): 3 Valet Manager: Diet: Continue current diet Supplements: Boost Glucose Control (1x/d) Pharmacy: Consult not needed Social Work: NA Anticipated Discharge Disposition: [facility]07-10-2023 NoteHNO ID: [id number] Author: Sergio Sofia APRN.METAL BONDING WORKER Service: Neurosurgery Author Type: Nurse Practitioner Type: [...] Room Air IANDO: Date 01/05/23699 - 01/06/23 0601/06/23699 - 01/07/23 0659 Shift 4572-1382 4742-9421 3192-6299 24 Hour Total 1490-4929 7188-8705 2401-0510 24 Hour Total INTAKE PO 120 120 [...] consciousness, sequela 01/03/2023 Malnutrition of moderate degree ([facility]) 01/05/2023 Coronary artery 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) 01/04/2023 Primary hypertension 01/04/2023 Other hyperlipidemia 01/04/2023 COPD (chronic obstructive pulmonary disease) ([facility]) 01/04/2023 Fall 01/04/2023 Stasis ulcer ([facility]) 01/03/2023 Skin tear of left elbow without [...] January 06, 2023 TIME: 4:05 AM Pager: [phone] NoteHNO ID: [id number] Author: Joao Coe DO Service: General Surgery [...] questions or concerns Mon-Fri 6a-5p please page [phone]. After 5pm and on Weekends and Holidays, please page [phone] if in ICU or [phone] if on RNF. SUBJECTIVE: VSS, NAEO, Pt [...] Air IANDO: Date 01/04/23699 - 01/05/2365801/05/23699 - 01/06/23658 Shift 6779-7732 0408-8514 9175-5103 24 Hour Total 2920-4649 2524-1991 0366-0633 24 Hour Total INTAKE PO 120 120 [...] consciousness, sequela 01/03/2023 Coronary artery 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) 01/04/2023 Primary hypertension 01/04/2023 Other hyperlipidemia 01/04/2023 COPD (chronic obstructive pulmonary disease) ([facility]) 01/04/2023 Fall 01/04/2023 Stasis ulcer ([facility]) 01/03/2023 Skin tear of left elbow without complication 01/03/2023 Noninfected skin tear of left leg 01/03/2023 Alteration in skin integrity due to moisture 01/03/2023 Assessment: 82 year old male status post fall from ground height. Imaging performed: CT H, Cervical spine, CXR, PXR. Traumatic Injuries: Left side frontal subacute intraparenchymal hemorrhage Complex (more content not included)...[facility]07-09-2023 NoteHNO ID: [id number] Author: Ricky Quintana MD Service: Orthopaedic Surgery [...] stable placement of hardware s/p L CMN Ricky Quintana MD Orthopaedic Surgery - PGY 3 6:19 AM 01/05/2023 Pager #[phone] INPATIENT ATTENDING: Dr. Errol Rod MD, Urgent [...] Recommendations: MST: Total MST Score (Calculated): 3 Valet Manager: Pharmacy: Consult not needed Social Work: NA Anticipated Discharge Disposition: [facility]07-08-2023 NoteHNO ID: [id number] Author: Joao Coe DO Service: Trauma Author Type: Resident Type: Progress Notes Filed: 01/29/2023 8:27 PM Note Text: Trauma Surgery Progress Note SERVICE DATE: 01/04/2023 Trauma Service Pager: For questions or concerns Mon-Fri 6a-5p please page [phone]. After 5pm and on Weekends and Holidays, please page [phone] if in ICU or [phone] if on RNF. SUBJECTIVE: VSS, NAEO, Pt [...] Therapy: Nasal Cannula IANDO: Date 01/03/231499 - 01/04/2365801/04/23699 - 01/05/23 06 Shift 9261-7970 0026-7095 24 Hour Total 0551-0613 8857-3730 5768-7232 24 Hour Total INTAKE IV 813 196 9491 1200 Volume (mL) (ceFAZolin in D5W 100 mL (ANCEF)) 100 100 Volume (mL) (tranexamic acid (CYKLOKAPRON) in NaCl 0.7%) 100 100 Volume (mL) (NaCl 0.9% iv infusion) 400 400 Volume (mL) (lactated ringers iv infusion) 500 500 Volume (mL) (lactated ringers iv infusion) 500 500 Shift Total 916 496 6506 1200 OUTPUT Urine 50 50 300 300 [...] consciousness, sequela 01/03/2023 Coronary artery 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) 01/04/2023 Primary hypertension 01/04/2023 Other hyperlipidemia 01/04/2023 COPD (chronic obstructive pulmonary disease) ([facility]) 01/04/2023 Fall 01/04/2023 Stasis ulcer ([facility]) 01/03/2023 Skin tear of left elbow without [...] Current diet ord (more content not included)...[facility] 01-04-2023 NoteHNO ID: [id number] Author: Moni Childers RN Service: Nursing Author Type: Registered Nurse Type: Nursing Progress Note Filed: 01/04/2023 6:18 PM Note Text: [facility] completed[facility]07-08-2023 NoteHNO ID: [id number] Author: Bert Bellamy MD Service: Anesthesiology Author [...] January 04, 2023 TIME: 4:49 PM CSN: [id number] Maine Medical Center07-08-2023 NoteHNO ID: [id number] Author: Moni Childers, PROMISE Service: Nursing Author Type: Registered Nurse Type: Nursing Progress Note Filed: 01/04/2023 6:19 PM Note Text: Fascia iliaca block given per Dr. Bellamy at [facility]07-08-2023 NoteHNO ID: [id number] Author: Ricky Quintana MD Service: Orthopaedic Surgery [...] - PGY 3 4:07 PM 01/04/2023 Pager #[phone]07-08-2023 NoteHNO ID: [id number] Author: Nathaniel Genao APRN.CRNA Service: Anesthesiology Author Type: Nurse Asphalt Distributor Operator Type: Anesthesia Procedure Notes Filed: 01/04/2023 3:13 PM Note Text: ANESTHESIOLOGY PROCEDURE NOTE Airway General Information Procedure Start Time/Medication Administration: 01/04/2023 2:55 PM Procedure End Time: 01/04/2023 2:56 PM Patient location during procedure: OR Timeout Performed Pre-procedure: timeout performed Consent Obtained: Yes Patient identity confirmed: arm band Staffing ISSUING OPERATOR: Nathaniel Genao APRN.ISSUING OPERATOR Performed by: ISSUING OPERATOR Indications and Patient Condition Indications for airway management: anesthesia Preoxygenated: yes anesthesia circuit Method: asleep Difficult Mask: No Final Airway Details Final airway type: supraglottic airway Number of attempts at approach: 1 Final Supraglottic Airway: i-gel Size 4 Seal Adequate: yes Airway not difficult SIGNATURE: Nathaniel Genao APRN.ISSUING OPERATOR PATIENT NAME: Amaury Blank DATE: January 04, 2023 TIME: 3:13 PM CSN: [id number] [facility] Center07-08-2023 NoteHNO ID: [id number] Author: Esha Engel RN Service: Nursing Author Type: Registered Nurse Type: Nursing Progress Note Filed: 01/04/2023 2:36 PM Note Text: Mopved [facility] NoteHNO ID: [id number] Author: Ricky Quintana MD Service: Orthopaedic Surgery [...] - PGY 3 6:19 AM 01/04/2023 Pager #[phone] INPATIENT ATTENDING: Dr. Errol Rod MD, Urgent [...] Recommendations: MST: Total MST Score (Calculated): 3 Valet Manager: Pharmacy: Consult not needed Social Work: NA [facility]ticipated [facility] NoteHNO ID: [id number] Author: Sergio Sofia APRN.METAL BONDING WORKER Service: Neurosurgery Author Type: Nurse Practitioner Type: [...] Therapy: Room Air IANDO: Date 01/03/23699 - 01/04/2365801/04/23699 - 01/05/23 0659 Shift 2198-1164 5357-4719 3229-7695 24 Hour Total 8459-2586 6396-6325 6772-2332 24 Hour Total INTAKE IV 400 400 [...] January 04, 2023 TIME: 5:21 AM Pager: [phone] NoteHNO ID: [id number] Author: Interface Note Service: ? Author Type: ? Type: Progress Notes Filed: 01/04/2023 4:02 AM Note Text: Epic Scheduled Downtime: 01/04/2023 1:02:30 AM to 01/04/2023 3:40:00 [facility] Procedure [facility]06-06-[address] Castaneda [facility] December 03, 2022 3:07pm Note Date/Time December 03, 2022 3:07p [facility] Medical Records Department [address] [place] [address] Discharge Summary 12/03/22 1506 MR#: [id number] Acct: [id number] Name: AMAURY BLANK Rep #:[id number] : 1940 82 From: Sammie Castaneda MD PCP: Dr. Rosa Maria Santacruz MD Status:ADM IN Location: [place] [address] Providers Date of Admission: 11/29/22 Date of Discharge: 12/03/22 Primary Care Physician: Dr. Rosa Maria Santacruz MD Consultations 11/29/22 05:22 Consult: Onc/Wound/finance vice president Routine Comment: 11/30/22 15:31 Consult: Nephrology Routine [...] mg tablet,delayed release 81 mg PO DAILY@0800 [facility] 08/29/16 levothyroxine 50 mcg tablet 75 [...] disease, PVD, ulcerative colitis, hypothyroidism presented to [facility] 11/29/2022 due to falls and weakness. He [...] 78.1 H, Lymph % (Auto) 7.7 L, [place] % (Auto) 12.0 H, Eos % (Auto) [...] Left Blood Culture - Preliminary GNR lactose queen's counsel 11/29/22 02:06 Nasal Secretion SARS-CoV-2 & FLU [...] in before D/C Order can be placed): [facility] Charges/Coding Visit Charges Inpatient E&M: 58711 Disch Hosp >30min 12/03/22 1507 <Electronically signed by Sammie Castaneda MD> Cosigner Signature (if applicable): CC: Dr. Rosa Maria Santacruz MD; Dr. Sammie Castaneda MD~ Signed [facility] Work Phone: 1(550) 370-298406-06-[address] Castaneda [facility] December 03, 2022 3:06pm Note Date/Time December 03, 2022 3:05p m [facility] Medical Records Department [address] [place] [address] Transfer to Extended Care MR#: [id number] Acct: [id number] Name: AMAURY BLANK Rep #:[id number] : 1940 82 From: Sammie Castaneda MD PCP: Dr. Rosa Maria Santacruz MD Status:ADM IN Certification of patient admission REQUIRED AT TIME OF ADMISSION. I CERTIFY THAT POST-HOSPITAL ECF SERVICES ARE REQUIRED TO BE GIVEN ON AN IN-PATIENT BASIS BECAUSE OF THE ABOVE NAMED PATIENT'S NEED FOR PRISON CARE ON A CONTINUING BASIS FOR THE CONDITION(S) FOR WHICH HE/SHE WAS RECEIVING IN-PATIENT HOSPITAL SERVICES PRIOR TO HIS/HER TRANSFER TO THE [facility]. 12/03/22 1506<Electronically signed by Sammie Castaneda MD> [...] disease, PVD, ulcerative colitis, hypothyroidism presented to [facility] 11/29/2022 due to falls and weakness. He [...] in before D/C Order can be placed): [facility] 12/03/22 1506 <Electronically signed by Sammie Castaneda MD> Cosigner Signature (if applicable): CC: Dr. Rosa Maria Santacruz MD; Dr. Jakob Alexander DO; Dr. Kvng James MD ~ [facility] Work Phone: [phone]) 534-951406-06-[address] James [facility] December 03, 2022 12:44pm Note Date/Time December 02, 2022 11:38 am [facility] Medical Records Department [address] [place] [address] Progress Note - Nephrology 12/02/22 1129 MR#: [id number] Acct: [id number] Name: AMAURY BLANK Rep #:[id number] : 1940 82 From: Jackie deshpande BEADING INSTALLER-C PCP: Dr. Rosa Maria Santacruz MD Status:ADM IN Location: [place] [id number] Subjective Subjective Resting in bed. Reports has [...] Left Blood Culture - Preliminary GNR lactose queen's counsel 11/29/22 02:06 Nasal Secretion SARS-CoV-2 & FLU [...] 3.12mg/dL. No acute or emergent indication for HAND FABRIC CUTTER, potassium and bicarb acceptable, patient is nonoliguric [...] by Kvng James MD> CC: ~ Signed [facility] Work Phone: 1(573) 758-559806-06-[address] James [facility] December 03, 2022 12:44pm Note Date/Time December 03, 2022 10:32 am [facility] Medical Records Department [address] [place] [address] Progress Note - Nephrology 12/03/22 1023 MR#: [id number] Acct: [id number] Name: AMAURY BLANK Rep #:[id number] : 1940 82 From: Jackie ZARATE PCP: Dr. Rosa Maria Santacruz MD Status:ADM IN Location: [place] [address] Documented by User: TESSA Nava 12/03/22 10:32 [...] 88.9 H, Lymph % (Auto) 2.8 L, [place] % (Auto) 6.8, Eos % (Auto) 0.3, [...] 78.1 H, Lymph % (Auto) 7.7 L, [place] % (Auto) 12.0 H, Eos % (Auto) [...] Left Blood Culture - Preliminary GNR lactose queen's counsel 11/29/22 02:06 Nasal Secretion SARS-CoV-2 & FLU [...] now. No acute or emergent indication for HAND FABRIC CUTTER, potassium and bicarb acceptable, patient is nonoliguric [...] now. No acute or emergent indication for HAND FABRIC CUTTER, potassium and bicarb acceptable, patient is nonoliguric [...] by Kvng James MD> CC: ~ Signed [facility] Work Phone: 1(477) 815-360106-05-[address] Castaneda [facility] December 02, 2022 12:00pm Note Date/Time December 02, 2022 7:45a m [facility] Medical Records Department [address] [place] [address] Progress Note - Hospitalist 12/02/22 0744 MR#: [id number] Acct: [id number] Name: AMAURY BLANK Rep #:[id number] : 1940 82 From: Sammie Castaneda MD PCP: Dr. Rosa Maria Santacruz MD Status:ADM IN Location: [place] [address] Reason for Visit Reason for Visit: Diagnoses [...] Left Blood Culture - Preliminary GNR lactose queen's counsel 11/29/22 02:06 Nasal Secretion SARS-CoV-2 & FLU [...] prelim blood cultures with gram-negative jessy lactose queen's counsel's. Awaiting final cultures -12/01: First blood culture [...] empyema with VATS -In August 2020 at [facility] after CT surgery evaluation -Had resultant pneumothorax at that time #DVT ppx: SCDs ordered given thrombocytopenia Sammie Castaneda MD Charges/Coding Visit Charges Inpatient E&M: 30382 Subs Hosp L2 12/02/22 1200 <Electronically signed by Sammie Castaneda MD> Cosigner Signature (if applicable): CC: ~ Signed [facility] Work Phone: 1(858) 734-458306-04-[address] James [facility] December 01, 2022 10:03am Note Date/Time December 01, 2022 10:00 am [facility] Medical Records Department [address] [place] [address] Consultation - Nephrology 12/01/22 0957 MR#: [id number] Acct: [id number] Name: AMAURY BLANK Rep #:[id number] : 1940 82 From: Kvng fernandes MD PCP: Dr. Rosa Maria Santacruz MD Status:ADM IN Location: [place] [address] Assessment & Plan Assessment/Plan (1) Acute renal [...] bypass surgery. He does follow with Dr. 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 Renal Dopplers in the past did not show any renal artery stenosis. Denies taking NSAIDs. As per staff, postvoid bladder scan was negative yesterday. Patient himself denies any urine related problems. 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 Rosa Maria Santacruz MD; Dr. Jakob Alexander DO; Dr. Kvng James MD~ Signed ADDENDUM by Dr. Kvng James MD on 12/01/22 at 1003 Addendum dc bumex for now 12/01/22 1003<Electronically signed by Kvng James MD> Cosigner Signature (if applicable): cc: Dr. Rosa Maria Santacruz MD; Dr. Jakob Alexander DO; Dr. Kvng James MD ~* Signed [facility] Work Phone: 1(464) [phone] Castaneda [facility] December 01, 2022 9:45am Note Date/Time December 01, 2022 7:56a m [facility] Medical Records Department [address] [place] [address] Progress Note - Hospitalist 12/01/22751 MR#: [id number] Acct: [id number] Name: AMAURY BLANK Rep #:[id number] : 1940 82 From: Sammie Castaneda MD PCP: Dr. Rosa Maria Santacruz MD Status:ADM IN Location: [address] 1 Reason for Visit Reason for Visit: [...] 85.5 H, Lymph % (Auto) 4.5 L, [place] % (Auto) 8.0, Eos % (Auto) 0.2, [...] Left Blood Culture - Preliminary GNR lactose queen's counsel 11/29/22 02:06 Nasal Secretion SARS-CoV-2 & FLU [...] prelim blood cultures with gram-negative jessy lactose queen's counsel's. Awaiting final cultures -12/01: First blood culture [...] empyema with VATS -In August 2020 at [facility] after CT surgery evaluation -Had resultant pneumothorax at that time #DVT ppx: SCDs ordered given thrombocytopenia Sammie Castaneda MD Charges/Coding Visit Charges Inpatient E&M: 64431 Subs Hosp L2 12/01/22 0945 <Electronically signed by Sammie Castaneda MD> Cosigner Signature (if applicable): CC: ~ Signed [facility] Work Phone: 1([phone]) 247-471706-03-[address] Castaneda [facility] November 30, 2022 9:58am Note Date/Time November 30, 2022 7:32a m [facility] Medical Records Department [address] [place] [address] Progress Note - Hospitalist 11/30/22 0731 MR#: [id number] Acct: [id number] Name: AMAURY BLANK Rep #:[id number] : 1940 82 From: Sammie Castaneda MD PCP: Dr. Rosa Maria Santacruz MD Status:ADM IN Location: [place] [address] Reason for Visit Reason for Visit: Diagnoses [...] Reviewed 11/29/22 06:55: Immature Gran % (Auto) BEADING INSTALLER, Neut % (Auto) BEADING INSTALLER, Lymph % (Auto) BEADING INSTALLER, Avoyelles % (Auto) BEADING INSTALLER, Eos % (Auto) BEADING INSTALLER, Baso % (Auto) BEADING INSTALLER, Absolute Lymphs (auto) 0.41L, Total Counted 100, Neutrophils % (Manual) 39 L, Band Neutrophils % 20 H, Lymphocytes % (Manual) 18 L, Monocytes % (Manual) 6, Metamyelocytes % 17 H, DiffPath Review Reviewed, Platelet Estimate MOD DEC, Microcytosis BEADING INSTALLER, Macrocytosis 1+, Ovalocytes RARE 11/29/22 06:55: Sodium 143, Potassium 4.8, Chloride 115 H, Carbon Dioxide 20.0 L, Anion Gap 8, BUN 45 H, Creatinine 2.53 H, Estim Creat Clear Calc 23.64, Est GFR (MDRD) Af Amer 32 L, Est GFR (MDRD) Non-Af 26 L, BUN/Creatinine Ratio 17.8, Glucose 99, Calcium 8.1 L, Iron 6 L, TIBC 187 L, Iron Saturation 3.2 L, Aqlmjhto910 H, Troponin I High Sens 139 H*, [...] 87.8 H, Lymph % (Auto) 6.1 L, [place] % (Auto) 5.2, Eos % (Auto) 0.0, Baso % (Auto) 0.6, Absolute Neuts (auto) 3.0, Absolute Lymphs (auto) 0.21 L, Nucleated RBC % 0, DifferentialComment SCANNED, Diff Path Review October, Platelet Estimate MKD 11/30/22 06:10: Sodium 138, Potassium 5.2 H, [...] Left Blood Culture - Preliminary GNR lactose queen's counsel 11/29/22 02:30 Blood Culture (Wb) - Anticubital Right Blood Culture - Preliminary GNR lactose queen's counsel 11/29/22 02:06 Nasal Secretion SARS-CoV-2 & FLU [...] prelim blood cultures with gram-negative jessy lactose queen's counsel's. Awaiting final cultures #Elevated troponin -Suspect type [...] empyema with VATS -In August 2020 at [facility] after CT surgery evaluation -Had resultant pneumothorax at that time #DVT ppx: SCDs ordered given thrombocytopenia Sammie Castaneda MD Charges/Coding Visit Charges Inpatient E&M: 95562 Subs Hosp L2 11/30/22 0958 <Electronically signed by Sammie Castaneda MD> Cosigner Signature (if applicable): CC: ~ Signed [facility] Work Phone: 1(287) 784-619706-02-[address] Castaneda [facility] November 29, 2022 4:50pm Note Date/Time November 29, 2022 9:09a m [facility] Medical Records Department [address] [place] [address] Progress Note - Hospitalist 11/29/22 0857 MR#: [id number] Acct: [id number] Name: AMAURY BLANK Rep #:[id number] : 1940 82 From: Sammie Castaneda MD PCP: Dr. Rosa Maria Santacruz MD Status:ADM IN Location: [place] [address] Hospitalist Note 82-year-old male history of alcohol use, A-fib, emphysema, coronary artery disease, GI bleed, ulcerative colitis presented to [facility] 11/28 for falls, weakness, fever. At time [...] empyema with VATS -In August 2020 at [facility] after CT surgery evaluation -Had resultant pneumothorax at that time #DVT ppx: SCDs given thrombocytopenia Sammie Castaneda MD 11/29/22 1650 <Electronically signed by Sammie Castaneda MD> Cosigner Signature (if applicable): CC: ~ Signed [facility] Work Phone: 1(471) 486-829506-02-[address] Joe [facility] November 29, 2022 6:52am Note Date/Time November 29, 2022 1:54a m [facility] Medical Records Department [address] [place] [address] Emergency Department Summary 11/29/22 MR#: [id number] Acct: [id number] Name: AMAURY BLANK Rep #:[id number] : 1940 82 From: Lupe Joe DO PCP: Dr. Rosa Maria Santacruz MD Status:ADM IN Location: [place] [address] 1 HPI HPI - Fall History of Present [...] of his left ankle 4 nights ago. 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 Electronically Signed: Warren aHro MD at 2:53 EDT , Foot X-Ray [...] kidney insufficiency Disposition Disposition: Acute Care Hospital [facility] What to do if you have Problems For any increased pain, shortness of breath, bleeding, nausea or vomiting, chestpain, or any unexpected problems, contact your Primary Care Provider. Call [facility] ([phone]) or report to the closest Emergency Room. Call 911 if necessary. 11/29/22 0652 <Electronically signed by Lupe Joe DO> Cosigner Signature (if applicable): CC: Dr. Rosa Maria Santacruz MD ~ Signed [facility] Work Phone: 1(773) [phone] History and physical note Author Dr. Alexander [facility] November 29, 2022 4:54am Note Date/Time November 29, 2022 4:47a m [facility] Medical Records Department [address] [place] [address] H&P Exam - Hospitalist 11/29/22 0439 MR#: [id number] Acct: [id number] Name: AMAURY BLANK Rep #:[id number] : 1940 82 From: Jakob Alexander DO PCP: Dr. Rosa Maria Santacruz MD Status:ADM IN Location: [facility] STH477- 1 HPI - General General Date of [...] hospital service was contacted for further admission. 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 (5) Skin tear: PLAN: [...] 72 hours. Charges/Coding Visit Charges Inpatient E&M: 39837 Init Hosp L3 11/29/22 0454 <Electronically signed by Jakob Alexander DO> Cosigner Signature (if applicable): CC: Dr. Rosa Maria Santacruz MD; Dr. Jakob Alexander DO~ Signed [facility] Work Phone: 1([phone]) 188-922104-10-2021 NoteDischarge Summary Amaury Blank : 1940 ADMIT [...] from his legs and heels. Seen by operations staff specialist security 09/07/20 - per documentation was instructed to begin Edecrin 50mg qD based on his known allergy to Lasix. Pt currently asymptomatic while resting in bed, SpO2 >90% on room air at present time ? - On last admission was noted to have Pneumonia, currently has PICC line placed w/ daily Ceftriaxone to run through 10/04/20 ? - CXR performed at [facility] 10/02/20: New right sided pneumothorax without [...] He was admitted to medical floor. CTS, wardrobe manager, etl analyst developer, ID consulted. Underwent chest tube placement. Antibiotic [...] was increased to 5 mg bid by wardrobe manager, recommended to continue that despite renal function [...] lesions. Neuro: intact, belgica (more content not included)...[facility]03-25-2021 NoteDischarge Summary Amaury Blank : 1940 Age: 80 y.o. ADMIT DATE: 09/11/2020 DISCHARGE DATE: 09/21/2020 DISCHARGING SURGEON: Kassandra Davidson MD Office Number: [phone] PRIMARY CARE PHYSICIAN: No primary care provider [...] DISCHARGE MEDICATIONS: Amaury Blank Home Medication Instructions DARIUS:[id number] Printed on:09/21/20 9665 Medication Information amiodarone (CORDARONE) 200 MG tablet [...] hesitate to contact us. SIGNED: Kylah Liz, [facility]03-16-2021 [facility] Department of Radiology Post Procedure Progress Note Pre-Procedure Diagnosis: Emypema. Procedure Performed: CT-guided right chest drain placement. Anesthesia: Local Conscious Sedation: 50 micrograms fentanyl iv total. Sedation Time: 30 minutes Findings: Large right-sided effusion/emyema. Outcomes: Successful placement of a 12 Ghanaian drain. Specimens: 60+ mL frankly purulent iverson fluid sent for C & S. Estimated Blood Loss: Minimal Immediate Complications: None Final report to follow in Radiology Results. [facility] Author Josephine Castillo [facility] June 25, 2023 5:07pm Note Date/Time June 25, 2023 5:07pm [facility] Medical Records Department [address] [place] [address] Counseling Note - Pharmacy 06/25/23 1705 MR#: [id number] Acct: [id number] Name: AMAURY BLANK Rep #:[id number] : 1940 82 From: Josephine Castillo PCP: Dr. Rosa Maria Santacruz MD Status:ADM IN [facility] Service has performed discharge medication reconciliation [...] 40 mg PO BID #60 tabs 06/25/23 06/25/23 1707 <Electronically signed by Josephine Castillo> Date _ Josephine Castillo Cosigner Signature (if applicable): Date CC: ~ Signed [facility] Work Phone: Consult note Author Dima Mancilla [facility] Note Date/Time December 27, 2024 12:1 4pm [facility] Medical Records Department [address] [place] [address] Anesthesia Postop Eval I 12/27/24 1213 MR#: [id number] Acct: [id number] Name: AMAURY BLANK Rep #:[id number] : 1940 84 From: Dima CHOI NA PCP: Dr. Jakob Flower MD Status:REG SDC Y Race: C Location: [place] [address] Anesthesia: Postop Eval I Current Vital Signs Temperature: 36 F Pulse Rate: 77 Blood Pressure: 111/61 Respiratory Rate: 14 Pulse Ox: 97 Assessment Airway patent: Yes Spontaneous unlabored respirations: Yes nausea: No Vomiting: No Anesthesia Complication: No Fluid Hydration Crystalloid volume administer (ml): 800 Total IV fluid infused: 800 Progress Note Anesthesia document: Postop Eval 1 completed: Yes 12/27/24 1214 <Electronically signed by Diam Mancilla CRNA> Date _ Dima Mancilla CRNA Cosigner Signature: Date CC: ~ Signed [facility] Work Phone: Discharge summary Author Aurelia Umaña [facility] Note Date/Time December 27, 2024 11:5 0am [facility] Medical Records Department [address] [place] [address] Instructions for Home/Discharge Instructions 12/27/24 1148 MR#: [id number] Acct: [id number] Name: AMAURY BLANK Rep #:[id number] : 1940 84 From: Aurelia chan MD PCP: Dr. Jakob Flower MD Status:REG [facility] Discharge Instructions Procedure Hernia Diet Discharge Diet: [...] Follow Up Care Please Follow Up With: Aurelia Umaña MD When: Please call to schedule 2 week follow up appointment. [phone] Test Results: Test results from this visit will be discussed in further detail at your follow- up appointment, if applicable. Discharge Plan Admission Attending Provider: Aurelia Umaña Primary Care Provider: Jakob Flower Instructions Print Language: Malian Discharge Orders/Prescriptions Prescriptions: New oxycodone 5 mg [...] [place] Referrals / Follow Up: Jakob Flower MD [Primary Care Provider] - Disposition Disposition (needs filled in before D/C Order can be placed): Home, Self Care 12/27/24 1150<Electronically signed by Aurelia Umaña MD>Aurelia Umaña MD CC: Dr. 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 Atrial fibrillation and flutter chronic Essential hypertension chron ic Hyperlipidemia chronic [id number] 2008 chronic 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, resolved Mitral valve insufficiency a cute PAD (peripheral artery disease) acute 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 Atrial fibrillation and flutter chronic Essential hypertension chron ic Hyperlipidemia chronic [id number] 2009 chronic 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, resolved [facility] Work Phone: Evaluation note* Diagnosis Onset Date Resolution Status Mitral valve insufficiency a cute PAD (peripheral artery disease) acute 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 Atrial fibrillation and flutter chronic Essential hypertension chron ic Hyperlipidemia [facility] Work Phone: Evaluation note* Diagnosis Onset Date Resolution Status Mitral valve insufficiency a cute PAD (peripheral artery disease) acute 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 Atrial fibrillation and flutter chronic Essential hypertension chron ic Hyperlipidemia chronic Acute renal insufficiency ac [place] Elevated troponin acute Fever acute Generalized weakness acute Pancytopenia acute Pneumonia acute Skin tear acute Chronic kidney insufficiency [facility] Work Phone: Evaluation note* Diagnosis Onset Date Resolution Status Mitral valve insufficiency a cute PAD (peripheral artery disease) acute 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 Atrial fibrillation and flutter chronic Essential hypertension chron ic Hyperlipidemia chronic Acute renal insufficiency ac [place] Bacteremia acute Elevated troponin acute Fever acute Generalized weakness acute Pancytopenia acute Pneumonia acute Skin tear acute Atrial fibrillation chronic Chronic kidney disease (CKD) chronic Chronic kidney insufficiency chronic [facility] Work Phone: Evaluation note* Diagnosis Onset Date Resolution Status Mitral valve insufficiency a cute PAD (peripheral artery disease) acute 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 Atrial fibrillation and flutter chronic Essential hypertension chron ic Hyperlipidemia chronic Acute renal insufficiency ac [place] Pancytopenia acute Skin tear acute Atrial fibrillation chronic Chronic kidney insufficiency chronic Bacteremia resolved Generalized weakness resolve d Pneumonia resolved Acute diastolic (congestive) heart failure acute Acute kidney injury acute Alcohol dependence acute Atrial fibrillation acute Coronary artery disease acut e Debility acute Hyperlipidemia acute Hypothyroidism acute Iron deficiency anemia acute Pancytopenia acute Ulcerative colitis acute Hypertension chronic Bacteremia resolved Pneumonia resolved [facility] Work Phone: Evaluation note* Diagnosis Onset Date Resolution Status Mitral valve insufficiency a cute PAD (peripheral artery disease) acute 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 Atrial fibrillation and flutter chronic Essential hypertension chron ic Hyperlipidemia chronic Acute renal insufficiency ac [place] Pancytopenia acute Skin tear acute Atrial fibrillation chronic Chronic kidney insufficiency chronic Bacteremia resolved Generalized weakness resolve d Pneumonia resolved Acute diastolic (congestive) heart failure acute Acute kidney injury acute Acute renal insufficiency ac [place] Alcohol dependence acute Anemia acute Atrial fibrillation chronic Coronary artery disease acut e Debility acute Hyperlipidemia acute Hypothyroidism acute Iron deficiency anemia acute Pancytopenia acute Ulcerative colitis acute Hypertension chronic Bacteremia resolved Pneumonia resolved [facility] Work Phone: Evaluation note* Diagnosis Onset Date Resolution Status Mitral valve insufficiency a cute PAD (peripheral artery disease) acute 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 Atrial [...] solved Bacteremia resolved Pancytopenia resolved Pneumonia resolved [facility] Work Phone: Evaluation note* Diagnosis Intracranial hemorrhage (HCC)- Primary Unspecified intracranial hemorrhage [facility]* Diagnosis Onset Date Resolution Status Mitral valve insufficiency a cute PAD (peripheral artery disease) acute 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 Atrial [...] disease) acute 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 Atrial fibrillation and flutter chronic Essential hypertension chron ic Hyperlipidemia [facility] Work Phone: Evaluation note* Diagnosis Onset Date [...] disease) acute 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 Atrial fibrillation and flutter chronic Essential hypertension chron ic Hyperlipidemia chronic [facility] Work Phone: Evaluation note* Diagnosis Onset Date Resolution Status Mitral valve insufficiency a cute PAD (peripheral artery disease) acute 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 Atrial [...] and midfoot with fat layer 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 [facility] Work Phone: Evaluation note* Diagnosis Onset Date [...] and midfoot with fat layer 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 [facility] Work Phone: Evaluation note* Diagnosis Onset Date [...] and midfoot with fat layer 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 [id number] chronic [facility] Work Phone: Evaluation note* Diagnosis Onset Date [...] and midfoot with fat layer 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 [id number] chronic Debility acute General weakness acute Hyperkalemia acute Palpitations acute [facility] Work Phone: Evaluation note* Diagnosis Onset Date [...] and midfoot with fat layer 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 [id number] chronic Acute respiratory failure with hypoxia acute Anemia acute Aspiration pneumonia acute Debility acute General weakness acute Hyperkalemia acute Hyperlipidemia acute Palpitations acute Pulmonary hypertension acute Severe sinus bradycardia acu te 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 Atrial fibrillation chronic CKD (chronic kidney disease) stage 3, GFR 30-59 ml/min chronic Hypertension chronic Pancytopenia chronic Subclavian artery stenosis, left September, resolved [facility] Work Phone: Evaluation note* Diagnosis Onset Date [...] and midfoot with fat layer 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 [id number] chronic Acute respiratory failure with hypoxia resolved Aspiration pneumonia resolve d Subclavian artery stenosis, left September, resolved [facility] Work Phone: Evaluation note* Diagnosis Onset Date [...] and midfoot with fat layer 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 [id number] chronic Acute respiratory failure with hypoxia resolved Aspiration pneumonia resolve d Subclavian artery stenosis, left September, resolved Anemia chronic Edema acute Peripheral vascular disease acute 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 [id number] chronic [facility] Work Phone: Evaluation note* Diagnosis Onset Date [...] and midfoot with fat layer 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 [id number] chronic Hyperkalemia acute Acute respiratory failure with hypoxia resolved Aspiration pneumonia resolve d Subclavian artery stenosis, left September, resolved Anemia chronic Edema acute [id number] acute Peripheral vascular disease acute 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 [id number] chronic Hyperkalemia acute Iron deficiency anemia acute Anemia chronic Dermatitis acute Edema acute Multiple excoriations acute [id number] chronic [facility] Work Phone: Evaluation note* Diagnosis Onset Date [...] and midfoot with fat layer 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 [id number] chronic Hyperkalemia acute Pancytopenia acute Acute respiratory failure with hypoxia resolved Aspiration pneumonia resolve d Subclavian artery stenosis, left September, resolved Pancytopenia acute Anemia chronic Edema acute [id number] acute Peripheral vascular disease acute 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 [id number] chronic Hyperkalemia acute Iron deficiency anemia acute Anemia chronic Anemia chronic Ulcerative colitis chronic Dermatitis acute Edema acute Multiple excoriations acute [id number] chronic [facility] Work Phone: Evaluation note* Diagnosis Onset Date [...] and midfoot with fat layer 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 [id number] chronic Hyperkalemia acute Pancytopenia acute Acute respiratory failure with hypoxia resolved Aspiration pneumonia resolve d Subclavian artery stenosis, left September, resolved Pancytopenia acute Anemia chronic Edema acute [id number] acute Peripheral vascular disease acute 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 [id number] chronic Hyperkalemia acute Iron deficiency anemia acute Anemia chronic Anemia chronic Ulcerative colitis chronic Dermatitis acute Edema acute Multiple excoriations acute [id number] chronic Cellulitis of right leg acut e [id number] chronic [facility] Work Phone: Evaluation note* Diagnosis Onset Date Resolution Status Edema acute [id number] acute Peripheral vascular disease acute 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 [id number] chronic Hyperkalemia acute Iron deficiency anemia acute Anemia chronic Anemia chronic Ulcerative colitis chronic Dermatitis acute Edema acute Multiple excoriations acute [id number] chronic Cellulitis of right leg acut e [id number] chronic Mitral valve insufficiency a cute PAD (peripheral artery disease) acute Atrial fibrillation and flutter chronic Essential hypertension chron ic Hyperlipidemia chronic Hyperkalemia acute Iron deficiency anemia acute Anemia chronic [facility] Work Phone: Evaluation noteNo assessment information available [facility] Work Phone: History and physical note Author Dr. Alexander [facility] November 29, 2022 4:54am Note Date/Time November 29, 2022 4:47a m [facility] Medical Records Department [address] [place] [address] H&P Exam - Hospitalist 11/29/22 0439 MR#: [id number] Acct: [id number] Name: AMAURY BLANK Rep #:[id number] : 1940 82 From: Jakob Alexander DO PCP: Dr. Rosa Maria Santacruz MD Status:ADM IN Location: [facility] SUO927- 1 HPI - General General Date of [...] hospital service was contacted for further admission. [facility] Medical History Alcohol use Ambulates with cane Atherosclerotic heart disease of enterprise coronary artery without angina pectoris Atrial fibrillation [...] Hyperlipidemia Hypertension Injury of head and neck senior care (current) use 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 Mitral valve insufficiency [...] mg tablet,delayed release 81 mg PO DAILY@0800 [facility] 08/29/16 [History Last Taken 04/23/21] levothyroxine [...] 82.6 H, Lymph % (Auto) 10.4 L, [place] % (Auto) 6.5, Eos % (Auto) 0.0, [...] Clarity Clear, Urine pH 5.0, Ur Specific [place] 1.015, Urine Protein 100 H, Urine Glucose [...] and treat Cannot rule out need for usp facility upon discharge. (5) Skin tear: PLAN: [...] 72 hours. Charges/Coding Visit Charges Inpatient E&M: 78737 Init Hosp L3 11/29/22 0454 <Electronically signed by Jakob Alexander DO> Cosigner Signature (if applicable): CC: Dr. Rosa Maria Santacruz MD; Dr. Jakob Alexander DO~ Signed [facility] Work Phone: Reason for referral (narrative)No reason for referral information [facility] Work Phone: Hospital Course * Kylah Liz MD - 09/21/2020 2:41 PM EDT Images from the original note were not included. Discharge Summary Amaury Blank : 1940 Age: 80 y.o. ADMIT DATE: 09/11/2020 DISCHARGE DATE: 09/21/2020 DISCHARGING SURGEON: Kassandra Davidson MD Office Number: [phone] PRIMARY CARE PHYSICIAN: No primary care provider [...] DISCHARGE MEDICATIONS: Amaury Blank Home Medication Instructions DARIUS:[id number] Printed on:09/21/20 1522 Medication Information amiodarone (CORDARONE) [...] 09/21/2020 3:05 PM EDT 2pm appointment 09/22/2020 [facility]- [address] [facility] [address] [address] part of building [address] Ground floor to the left infusion center Stop Date- 10/04/20 Infusion Center will draw Labs (CBC/d, serum creatinine, LFTs) every Friday while on antimicrobials [facility] will call to schedule follow up in [address] chest w/o contrast before the followup appointment [facility]: [phone] * Additional Instructions* Kylah Liz MD - 09/19/2020 Images from the original note were not included. [facility]: Cardiothoracic Surgery [address] [place] (T): #[phone] (F): #[phone] After lung surgery, it is common to [...] or dog food bags, or a vacuum commercial cleaner. If your incision is in the [...] start to have pain. Shoulder Stretch 1. brine process operator a doorway and place one arm against [...] Ifyou are prescribed oxycodone/acetaminophen (Percocet) or hydrocodone/acetaminophen (Elma/Vicodin) be cautious when taking additional tylenol. No [...] in this encounter* Discharge Instr - Activity* Asfhan Pfeiffer MD - 10/07/2020 12:06 PM EDT [...] at most local grocery stores, pharmacies, and [employer]-stores. If you have any questions about your [...] Canned vegetables, unless labeled sodium-free or low-sodium. Ghanaian fries, pizza, tacos, and other fast foods. Pickles, olives, ketchup, and other condiments, especially soy sauce, unless labeled sodium-free orlow-sodium. Where can you learn more? Go to https://[employer]or Systemseb.[employer].org and sign in to your TrueView account. Enter V843 in the Search Health Information box to learn more about Low Sodium Diet (2,000 Milligram): Care Instructions. If you do not have an account, please click on the Sign Up Now link. Current as of: June 15, 2020 Content Version: 12.8 [employer]. Care instructions adapted under license by [employer]. If you have questions about a medical condition or this instruction, always ask your healthcare professional. [employer] disclaims any warranty or liability for your use of this information. documented in this encounter History of Present Illness * Orlando Goetz MD - 09/21/2020 4:47 PM EDT [facility] Progress Note SUBJECTIVE: Patient denies current CP, SOB. 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 - 1940 Room Number - [id number] N - [id number] Date of Admission - 09/11/2020 8:15 PM [...] no growth IMAGING: reviewed Sha Downs MD [facility] Pager: [phone] 09/21/2020 10:20 AM * Kylah Liz MD [...] This note may have been dictated using Dat[employer]ars Practice Edition 2.6 and/or [employer] Voice Recognition Feature. The document was proofread; however, unrecognized voice recognition gravity prospecting operator errors may be present. Associated attestation - Kassandra Davidson MD - 09/21/2020 7:15 AM EDT DOS: 09/21/2020 I personally performed a face to face diagnostic evaluation on this patient. I agree with the findings and plan of care as documented by the resident/BACKSHOE PERSON/BEADING INSTALLER/PA, unless otherwise noted. Kassandra Davidson MD Cardiothoracic Surgery * Orlando Goetz MD - 09/20/2020 7:10 PM EDT [facility] Progress Note SUBJECTIVE: Patient denies [...] INTAKE/OUTPUT: Intake/Output Summary (Last 24 hours) at 09/20/2020 1910 Last data filed at 09/20/2020 1800 Gross [...] a past medical history of Atrial fibrillation/flutter ([facility]), CAD (coronary artery disease), History of GI [...] Ambulation Assistance: Independent Transfer Assistance: Independent Active Art Psychotherapist Or Therapist: Yes Mode of Transportation: Car Occupation: Retired [...] Plan Plan Comment: Discharge OT OutComes Score AM-PAC Daily Activity Inpatient How much [...] Plan of Care supervision is transferred to [facility] Occupational Therapist. Goals and/or treatment plan was established in collaboration with patient/family/other representatives. Lima Obrien OTR/L * Jus Brizuela - 09/20/2020 9:51 AM EDT Physical Therapy Facility/Department: [facility] Re-evaluation NAME: Amaury Blank [...] therapy services to improve endurance and implement intermediate exercise program. Prognosis: Good Decision Making: Medium [...] Ambulation Assistance: Independent Transfer Assistance: Independent Active Art Psychotherapist Or Therapist: Yes Mode of Transportation: Car Occupation: Retired [...] throughout re-evaluation. Re-evaluation observed and assisted by CHAY Quevedo SPT Associated attestation - Robby Lovell PT - 09/20/2020 1:07 PM EDT Pt was one insisting on not using LUE due to art line. Pt insists on elevating HOB --pt will have at home to assist form flat bed. * Sha Downs MD - 09/20/2020 8:11 AM EDT Progress Note [facility] Patient - Amaury Blank, Age - 80 y.o. - 1940 Room Number - [id number] N - [id number] [facility] # - [id number] Date of Admission - 09/11/2020 8:15 PM [...] no growth IMAGING: reviewed Sha Downs MD [facility] ID Pager: [phone] 09/20/2020 8:11 AM * Kylah Liz MD [...] 26.44 kg/m I/O: Date 09/20/20 0000 - 09/20/202358 Shift 8514-4991 8359-4813 7152-7322 24 Hour Total INTAKE P.O.(mL/kg/hr) 200(0.3) 200 [...] This note may have been dictated using Dat[employer]ars Practice Edition 2.6 and/or [employer] Voice Recognition Feature. The document was proofread; however, unrecognized voice recognition gravity prospecting operator errors may be present. Associated attestation - Kassandra Davidson MD - 09/20/2020 11:56 AM EDT DOS: 09/20/2020 I personally performed a face to face diagnostic evaluation on this patient. I agree with the findings and plan of care as documented by the resident/BACKSHOE PERSON/BEADING INSTALLER/PA, unless otherwise noted. Kassandra Davidson MD Cardiothoracic [...] Adelaida Frankel MD General Surgery PGY-4 Pager [phone] * Orlando Goetz MD - 09/19/2020 4:03 PM EDT [facility] Progress Note SUBJECTIVE: Patient denies current CP, SOB. Confused 'pain 7/10 In ICU Right VATS with pleural biopsy [...] - 09/19/2020 10:47 AM EDT Progress Note [facility] Patient - Amaury Blank, Age - 80 y.o. - 1940 Room Number - [id number] Date of Admission - 09/11/2020 8:15 PM [...] [AUG Hold] balsalazide 750 mg Oral Daily [AUG Hold] cefTRIAXone (ROCEPHIN) IV 1,000 mg Intravenous Q24H [AUG Hold] metroNIDAZOLE 500 mg Oral 2 times per day [AUG Hold] ipratropium-albuterol 1 ampule Inhalation TID [AUG Hold] acetaminophen 1,000 mg Oral 3 times per day [AUG Hold] thiamine mononitrate 100 mg Oral Daily [AUG Hold] sodium chloride flush 10 mL Intravenous 2 times per day [AUG Hold] atorvastatin 40 mg Oral Nightly [AUG Hold] levothyroxine 50 mcg Oral Daily [AUG Hold] metoprolol tartrate 25 mg Oral Daily [AUG Hold] pantoprazole 40 mg Oral Daily [AUG Hold] heparin (porcine) 5,000 Units Subcutaneous 3 times per day [Aug] sodium chloride 75 mL/hr at 09/18/20 2336 LABS: CBC: Recent Labs 09/17/20 1020 09/18/20 0014 09/19/20 014 WBC 8.0 10.6 6.4 HGB 10.8* 9.9* 9.4* PLT 161 155 155 BMP: Recent Labs 09/18/20 0014 09/19/20 014 NA 131* 133* K 4.9 4.8 CL 106 106 CO2 20* 21* BUN 50* 44* CREATININE 1.80* 1.79* GLUCOSE 112* 106* Hepatic: Recent Labs 09/18/20 001 LABALBU 2.1* Lactic Acid: No results for input(s): LACTA in the last 72 hours. MICROBIOLOGY: 09/12 R chest abscess: strep intermedius and anaerobic gnb 09/12 legionella/strep negative 09/11 blood cx: no growth IMAGING: reviewed Sha Downs MD [facility] ID Pager: [phone] 09/19/2020 10:47 AM * Kylah Liz MD [...] Date 09/19/20 0000 - 09/19/20 2359 Shift 5618-1227 2183-3569 3474-6073 24 Hour Total INTAKE I.V.(mL/kg) 750(8.6) 800(9.2) [...] Pain control with scheduled Tylenol / Dilaudid HEMATOLOGY ONCOLOGY CONSULTANT. - Pain management following. Appreciate recommendations. - [...] This note may have been dictated using i[employer]ind Medical Practice Edition 2.6 and/or [employer] Voice Recognition Feature. The document was proofread; however, unrecognized voice recognition gravity prospecting operator errors may be present. Associated attestation - Kassandra Davidson MD - 09/20/2020 7:32 AM EDT DOS: 09/19/20 I personally performed a face to face diagnostic evaluation on this patient. I agree with the findings and plan of care as documented by the resident/BACKSHOE PERSON/BEADING INSTALLER/PA, unless otherwise noted. Kassandra Davidson MD Cardiothoracic Surgery * Sha Downs MD - 09/18/2020 5:04 PM EDT Progress Note [facility] Patient - Amaury Blank, Age - 80 y.o. - 1940 [id number] Date of Admission - 09/11/2020 8:15 PM [...] reviewed [facility] Pager: [phone] 09/18/2020 5:08 PM I have seen and examined the patient independently. I fully agree with the above note as documentedby AUDI Sy ID Pager: [phone] 09/18/2020 5:54 PM * Orlando Goetz MD - 09/18/2020 3:27 PM EDT [facility] Progress Note SUBJECTIVE: Patient denies [...] AM, monitor. Transfuse PRN per primary Coy Otoole APRN - METAL BONDING WORKER 09/18/2020 3:27 PM I have discussed the care of Amaury Calvin Blank with BEADING INSTALLER. I have personally taken a history, examinedthe [...] included. Hospitalist Progress Note 09/18/2020 10:54 AM [phone]: Please page me for patient care issues. [phone]: Please page [facility] night Hospitalist for any issues. Subjective: Admit Date: 09/11/2020 PCP: No primary care provider on file. Room#: [id number] Interval History: Feels ok Still sig sob [...] prn ativan. -history of daily alcohol use Sultana is on hold On deep vein thrombosis [...] be monitored and followed by the diet master automotive glass technician. * Fabiola Jo OT - 09/18/2020 [...] Date 09/18/20 0000 - 09/18/20 2359 Shift [id number] 3340-7567 4880-1272 24 Hour Total INTAKE Shift Total(mL/kg) OUTPUT [...] This note may have been dictated using Datamars Practice Edition 2.6 and/or [employer] Voice Recognition Feature. The document was proofread; however, unrecognized voice recognition gravity prospecting operator errors may be present. Associated attestation - Kassandra Davidson MD - 09/18/2020 3:27 PM EDT DOS: 09/18/2020 I personally performed a face to face diagnostic evaluation on this patient. I agree with the findings and plan of care as documented by the resident/BACKSHOE PERSON/BEADING INSTALLER/PA, unless otherwise noted. Kassandra Davidson MD Cardiothoracic Surgery * Sha Downs MD - 09/17/2020 6:35 PM EDT Progress Note [facility] Patient - Amaury Blank, Age - 80 y.o. - 1940 Room Number - [id number] N - [id number] Date of Admission - 09/11/2020 8:15 PM [...] CT chest 09/13 reviewed Sha Downs MD [place] ID Pager: [phone] 09/17/2020 6:35 PM * Delmy Brush DO - 09/17/2020 11:49 AM EDT [facility] [address] [place] [address] Progress Note Subjective: Patient seen [...] included. Hospitalist Progress Note 09/17/2020 11:42 AM [phone]: Please page me for patient care issues. [phone]: Please page [facility] night Hospitalist for any issues. Subjective: Admit Date: 09/11/2020 PCP: No primary care provider on file. Room#: [id number] Interval History: Patient seen and examined No [...] kg/m I/O: Date 09/17/20 0000 - 09/17/20 7671 Shift 6185-0100 1597-7290 9945-5111 24 Hour Total INTAKE Shift Total(mL/kg) OUTPUT Urine(mL/kg/hr) 400 400 Chest Tube 280 280 Shift Total(mL/kg) 680(7.8) 680(7.8) Weight (kg) 86.8 86.8 86.8 86.8 Patient Vitals for the past 96 hrs (Last 3 readings): Weight 09/16/20 0557 191 lb 4.8 oz (86.8 kg) Labs and Diagnostics: (reviewed in EMR) BMP: Recent Labs 09/15/204 09/16/20 0118 NA 134* 130* K 4.0 [...] If no clinical improvement with tPA this , will consider right VATS, possible thoracotomy,with decortication [...] This note may have been dictated using Datamars Practice Edition 2.6 and/or [employer] Voice Recognition Feature. The document was proofread; however, unrecognized voice recognition gravity prospecting operator errors may be present. Associated attestation - Kassandra Davidson MD - 09/17/2020 9:33 AM EDT DOS: 09/17/2020 I personally performed a face to face diagnostic evaluation on this patient. I agree with the findings and plan of care as documented by the resident/BACKSHOE PERSON/BEADING INSTALLER/PA, unless otherwise noted. Kassandra Davidson MD Cardiothoracic Surgery * Sha Downs MD - 09/16/2020 5:49 PM EDT Progress Note [facility] Patient - Amaury Blank, Age - 80 y.o. - 1940 Room Number - [id number] N - [id number] Date of Admission - 09/11/2020 8:15 PM [...] CT chest 09/13 reviewed Sha Downs MD [place] ID Pager: [phone] 09/16/2020 5:49 PM * Delmy Brush DO - 09/16/2020 4:22 PM EDT [facility] [address] [place], [place] [id number] Progress Note Subjective: Patient seen and examined [...] included. Hospitalist Progress Note 09/16/2020 11:22 AM [phone]: Please page me for patient care issues. [phone]: Please page [facility] night Hospitalist for any issues. Subjective: Admit Date: 09/11/2020 PCP: No primary care provider on file. Room#: [id number] Interval History: Patient seen and examined No [...] 14 Ht 5' 11 (1.803 m) Wt 191lb 4.8 oz (86.8 kg) SpO2 99% BMI 26.68 kg/m I/O: Date 09/16/20 0000 - 09/16/20 2359 Shift 3563-3972 9511-1994 6599-1179 24 Hour Total INTAKE P.O.(mL/kg/hr) 300(0.4) 300 [...] This note may have been dictated using [employer] Practice Edition 2.6 and/or [employer] Voice Recognition Feature. The document was proofread; however, unrecognized voice recognition gravity prospecting operator errors may be present. Associated attestation - Kassandra Davidson MD - 09/16/2020 6:00 PM EDT DOS: 09/16/2020 I personally performed a face to face diagnostic evaluation on this patient. I agree with the findings and plan of care as documented by the resident/BACKSHOE PERSON/BEADING INSTALLER/PA, unless otherwise noted. aKssandra Davidson MD Cardiothoracic Surgery * Marleny Weston RN - 09/15/2020 6:06 PM EDT Son Kasi([phone])called and given update. He would like to be contacted in regards to discharge planning. He or his brother James([phone]) will be helping the patient out at home. * Erasmo Schrader MD - 09/15/2020 5:12 PM EDT [facility] [address] [place] [address] Progress Note Subjective: Patient seen [...] NEURO alert awake Data: Labs: Recent Labs 09/13/20 0218 09/15/20 0154 WBC [...] Schrader M.D 09/15/2020 5:12 PM * Sha Downs MD - 09/15/2020 2:29 PM EDT Progress Note [facility] Patient - Amaury Blank, Age - 80 y.o. - 1940 Room Number - [id number] N - [id number] Date of Admission - 09/11/2020 8:15 PM [...] times per day LABS: CBC: Recent Labs 09/13/208 09/15/20 0154 WBC 6.1 -- HGB 9.9* 10.7* PLT 131* -- BMP: Recent Labs 09/13/208 09/14/20 0146 09/15/20 0154 NA 139 135 [...] CT chest 09/13 reviewed Sha Downs MD [place] ID Pager: [phone] 09/15/2020 2:29 PM * Genesis Wayne - 09/15/2020 1:15 PM EDT Physical Therapy Facility/Department: [facility] Initial Assessment NAME: Amaury Blank [...] a past medical history of Atrial fibrillation/flutter ([facility]), CAD (coronary artery disease), History of GI bleed, Hypertension, and UC (ulcerative colitis) ([facility]). has a past surgical history that includes [...] Ambulation Assistance: Independent Transfer Assistance: Independent Active Art Psychotherapist Or Therapist: Yes Mode of Transportation: Car Occupation: Retired [...] Inpatient Mobility Raw Score : 17 (09/15/20 131) AM-PAC Inpatient T-Scale Score : 42.13 (09/15/201314) Mobility Inpatient CMS 0-100% Score: 50.57 (09/15/20 1315) Mobility Inpatient CMS G-Code Modifier : CK (09/15/201314) Goals Short term goals Time Frame for [...] 26 Transfer Plan of care over to [facility] Physical Therapy staff. Goals and/or treatment plan was established in collaboration with pt. No Bed/chair alarm on prior to session and no alarm after session SPT wore gloves and surgical mask Genesis Wayne, SPT Associated attestation - Roman Andres, PT - 09/15/2020 3:31 PM EDT Spoke with RN (marleny), she stated order to keep chest tube on suction at all times. SPT was in direct line of sight of PT Pt nico KENNEDY at times * Oscar Buchanan MD - 09/15/2020 1:11 PM EDT Images from the original note were not included. Hospitalist Progress Note 09/15/2020 1:11 PM [phone]: Please page me for patient care issues. [phone]: Please page [facility] night Hospitalist for any issues. Subjective: Admit Date: 09/11/2020 PCP: No primary care provider on file. Room#: [id number] Interval History: Patient seen and examined No [...] per day LABS: CBC: Recent Labs 09/13/2021709/15/20 015 WBC 6.1 -- RBC 2.97* -- HGB [...] prn ativan. -history of daily alcohol use Elirenea is on hold On deep vein thrombosis prophylaxis with heparin sq On gastrointestinal prophylaxis of Protonix 40 mg daily Continue current treatment Labs ordered for AM PT,OT consulted Patient was informed about all work up and treatment plan Discussed with nursing staff Advance Directive: Limited Discharge planning: OSCAR BUCHANAN MD Division of Hospitalist Medicine Inpatient Medical Services PAGER: [phone] * Kylah Liz MD - 09/15/2020 4:29 [...] kg/m I/O: Date 09/15/20 0000 - 09/15/20 2354 Shift 5733-4971 2496-1185 0097-0472 24 Hour Total INTAKE P.O.(mL/kg/hr) 450(0.7) 450 Shift Total(mL/kg) 450(5.5) 450(5.5) OUTPUT Chest Tube 152 910 5145 Shift Total(mL/kg) 600(7.4) 440(5.4) 1040(12.8) Weight (kg) 81.4 81.4 81.4 81.4 Patient Vitals for the past 96 hrs (Last 3 readings): Weight 09/11/20 2230 179 lb 8 oz (81.4 kg) Labs and Diagnostics: (reviewed in EMR) BMP: Recent Labs 09/13/208 09/14/20 0146 09/15/20 0154 NA 139 135 138 134* K 3.2* 3.2* 3.7 4.0 CL 110* 108* 110* 106 CO2 21* 21* 20* 19* BUN 79* 76* 70* 68* CREATININE 2.35* 2.32* 2.24* 2.27* GLUCOSE 139* 136* 129* 105* . CBC: Recent Labs 09/13/2021709/15/20 015 WBC 6.1 -- HGB 9.9* 10.7* PLT [...] This note may have been dictated using Datam[employer] Practice Edition 2.6 and/or [employer] Voice Recognition Feature. The document was proofread; however, unrecognized voice recognition gravity prospecting operator errors may be present. Associated attestation - Kassandra Davidson MD - 09/16/2020 5:45 PM EDT DOS: 09/15/20 I personally performed a face to face diagnostic evaluation on this patient. I agree with the findings and plan of care as documented by the resident/BACKSHOE PERSON/BEADING INSTALLER/PA, unless otherwise noted. Kassandra Davidson MD Cardiothoracic Surgery * Erasmo Schrader MD - 09/14/2020 1:26 PM EDT [facility] [address] [place] [address] Progress Note Subjective: Patient seen [...] NEURO alert awake Data: Labs: Recent Labs 09/11/20225309/13/20 021 WBC 9.1 6.1 HGB 11.0* 9.9* HCT [...] - 09/14/2020 12:29 PM EDT Progress Note [facility] Patient - Amaury Blank, Age - 80 y.o. - 1940 Room Number - [id number] N - [id number] Date of Admission - 09/11/2020 8:15 PM [...] days. IMAGING: CT chest 09/13 reviewed Sha Dowsn MD [facility] ID Pager: [phone] 09/14/2020 12:29 PM * Alessio Robertson MD - 09/14/2020 7:59 AM EDT Images from the original note were not included. Hospitalist Progress Note 09/14/2020 7:59 AM [phone]: Please page me for patient care issues. [phone]: Please page [facility] night Hospitalist for any issues. Subjective: Admit Date: 09/11/2020 PCP: No primary care provider on file. Room#: [id number] Interval History: Patient seen and examined No [...] times per day LABS: CBC: Recent Labs 03/15/225309/13/208 WBC 9.1 6.1 RBC 3.29* 2.97* HGB 11.0* 9.9* HCT 33.2* 30.0* MCV 100.9* 101.1* RDW 14.3 14.4 PLT 137* 131* BMP: Recent Labs 09/11/20225309/13/208 09/14/20 0146 NA 140 139 135 138 K 3.5 3.2* 3.2* 3.7 CL 110* 110* 108* 110* CO2 20* 21* 21* 20* BUN 77* 79* 76* 70* CREATININE 2.18* 2.35* 2.32* 2.24* GLUCOSE 117* 139* 136* 129* CALCIUM 9.1 8.3* 8.3* 8.5 ANIONGAP 9 7 6 8 LIVER PROFILE: Recent Labs 09/11/202253 AST 39 [...] of Hospitalist Medicine Inpatient Medical Services PAGER: [phone] * Cesario Ruffin RN - 09/14/2020 6:36 [...] 99% BMI 25.04 kg/m I/O: Date 09/14/20 0000 - 09/14/20 2359 Shift 1052-4620 5980-5871 2380-0124 24 Hour Total INTAKE P.O.(mL/kg/hr) 500 500 I.V.(mL/kg) 100(1.2) 100(1.2) Shift Total(mL/kg) 600(7.4) 600(7.4) OUTPUT Urine(mL/kg/hr) 350 350 Chest Tube 180 180 Shift Total(mL/kg) 530(6.5) 530(6.5) Weight (kg) 81.4 81.4 81.4 81.4 Patient Vitals for the past 96 hrs (Last 3 readings): Weight 09/11/20 2230 179 lb 8 oz (81.4 kg) Labs and Diagnostics: (reviewed in EMR) BMP: Recent Labs 09/11/20225309/13/2021709/14/20 0146 NA 140 [...] This note may have been dictated using [employer] Medical Practice Edition 2.6 and/or [employer] Voice Recognition Feature. The document was proofread; however, unrecognized voice recognition gravity prospecting operator errors may be present. Associated attestation - Kassandra Davidson MD - 09/14/2020 10:32 AM EDT DOS: 09/14/2020 I personally performed a face to face diagnostic evaluation on this patient. I agree with the findings and plan of care as documented by the resident/BACKSHOE PERSON/BEADING INSTALLER/PA, unless otherwise noted. Good response to alteplase [...] - 09/13/2020 2:56 PM EDT Progress Note [facility] Patient - Amaury Blank, Age - 80 y.o. - 1940 Room Number - [id number] [facility] [id number] [id number] Date of Admission - 09/11/2020 8:15 PM [...] 9.9* PLT 137* 131* BMP: Recent Labs 09/11/20225309/13/20217 NA 140 139 [...] CT chest 09/13 reviewed Sha Downs MD [place] ID Pager: [phone] 09/13/2020 2:57 PM * Erasmo Schrader MD - 09/13/2020 2:12 PM EDT [facility] [address] [place] [address] Progress Note Subjective: Patient seen and examined [...] NEURO alert awake Data: Labs: Recent Labs 03/15225309/13/20217 WBC 9.1 6.1 HGB 11.0* 9.9* HCT [...] be monitored and followed by the diet master automotive glass technician. MERARY Lara * Alessio Robertson MD - 09/13/2020 9:16 AM EDT Images from the original note were not included. Hospitalist Progress Note 09/13/2020 9:16 AM [phone]: Please page me for patient care issues. [phone]: Please page [facility] night Hospitalist for any issues. Subjective: Admit Date: 09/11/2020 PCP: No primary care provider on file. Room#: [id number] Interval History: Patient seen and examined No [...] times per day LABS: CBC: Recent Labs 03/225309/13/20217 WBC 9.1 6.1 RBC 3.29* 2.97* HGB 11.0* 9.9* HCT 33.2* 30.0* MCV 100.9* 101.1* RDW 14.3 14.4 PLT 137* 131* BMP: Recent Labs 09/11/20225309/13/20217 NA 140 139 135 K 3.5 3.2* 3.2* CL 110* 110* 108* CO2 20* 21* 21* BUN 77* 79* 76* CREATININE 2.18* 2.35* 2.32* GLUCOSE 117* 139* 136* CALCIUM 9.1 8.3* 8.3* ANIONGAP 9 7 6 LIVER PROFILE: Recent Labs 09/11/202253 AST 39 ALT 24 BILITOT 1.2 ALKPHOS 147* LABALBU 2.8* PROT 5.4* PT/INR: Recent Labs 09/12/20 09 PROTIME 13.8* INR 1.3* CARDIAC ENZYMES: No [...] of Hospitalist Medicine Inpatient Medical Services PAGER: [phone] * Kylah Liz MD - 09/13/2020 4:34 [...] Date 09/13/20 0000 - 09/13/20 2359 Shift 7924-0219 9694-4206 9931-0718 24 Hour Total INTAKE P.O.(mL/kg/hr) 600 600 [...] This note may have been dictated using [employer] Practice Edition 2.6 and/or [employer] Voice Recognition Feature. The document was proofread; however, unrecognized voice recognition gravity prospecting operator errors may be present. Associated attestation - Kassandra Davidson MD - 09/13/2020 5:16 PM EDT DOS: 09/13/2020 I personally performed a face to face diagnostic evaluation on this patient. I agree with the findings and plan of care as documented by the resident/BACKSHOE PERSON/BEADING INSTALLER/PA, unless otherwise noted. Kassandra Davidson MD Cardiothoracic Surgery * Shahnaz Cooper [facility] - 09/12/2020 12:50 PM EDT Infectious Diseases [...] obtained. Patient assisted to CT table . desk monitor on.# 12 pigtail drain to atrium [...] included. Hospitalist Progress Note 09/12/2020 8:28 AM [phone]: Please page me for patient care issues. [phone]: Please page [facility] night Hospitalist for any issues. Subjective: Admit Date: 09/11/2020 PCP: No primary care provider on file. Room#: [id number] Interval History: Patient seen and examined No [...] showed large rightsided pleural effusion Transferred from [facility]. Patient initially presented with shortness of breath workup consistent with large right-sided pleural effusion, status post thoracentesis- drained 1.9 L of fluid, there was a concern for purulent drainage effusion/empyema. LDH greater than 4000, total protein 1.7. He was on Zosyn, vancomycin, case was discussed with cardio- thoracic surgery team at [facility] and was transferred for further treatment. His creatinine on admission to [facility] was 2.3 Denies any chest pain, cough, [...] of Hospitalist Medicine Inpatient Medical Services PAGER: [phone] documented in this encounter* Delmy Brush DO [...] 5 mg bid unless decreased by your wardrobe manager. 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 Volume- much improved per patient,tolerated diuresis with ethacrynic acid Has allergy to po Lasix and Bumex 3. Hypomagnesmia- Mg low at 1.3 this AM, replete x1 ASSESSMENT/PLAN: Delmy Brush DO 10/07/2020 12:41 PM * Anna Baldwin MD - 10/07/2020 8:14 AM EDT Progress Note [facility] Patient - Amaury Blank, Age - 80 y.o. 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 Cardiothoracic Surgery Progress Note PATIENT NAME: Amaury Blank TODAY'S DATE: 10/07/2020 Surgery/Procedure: 10/02/20 Hydropneumothorax with subcutaneous emphysema with CT guided chest tube placement Interval History: Hospital day #[address] today. 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 The document was proofread, however unrecognized voice recognition gravity prospecting operator errors may be present. * Bre Wilhelm, PT - 10/06/2020 6:03 PM EDT Physical Therapy Facility/Department: 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 Cognition Cognition Overall Cognitive Status: Exceptions Following [...] place: No G-Code OutComes Score AM-PAC Score AM-[facility] Inpatient Mobility Raw Score : 20 (10/06/201802) AM-[facility] Inpatient T-Scale Score : 47.67 (10/06/201802) Mobility [...] Timed Code Treatment Minutes: 11 Minutes(Gait) Bre Wilhelm PT PT wore N95 mask, goggles, and gloves throughout entire session with patient. Patient s Physical Therapy Plan of Care supervision is transferred to [facility] Department Physical Therapist. * Fabiola Jo, OT - 10/06/2020 3:05 PM EDT Occupational [...] GI bleed, Hypertension, and UC (ulcerative colitis) ([facility]). 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 Objective Vision: Impaired Vision Exceptions: Wears glasses [...] Plan [facility]. Goals and/or treatment plan was established in collaboration with patient/family/other representatives. This provider wore an N95 mask, goggles, and gloves for duration of session. Fabiola Jo OTR/L * Lauryn Sierra, WIDE AREA NETWORK ADMINISTRATOR - METAL BONDING WORKER - 10/06/2020 1:05 PM EDT CARDIOLOGY PROGRESS [...] BMP: Recent Labs 10/05/20 0051 10/06/20 0030 NA 142 137 K [...] ERO: 0.2 cm^2. RECOMMENDATIONS: Proceed with DCCV. [id number] Score for Atrial Fibrillation Stroke Risk Risk Factors Component Value C CHF No 0 H HTN No 0 A2 Age >= 75 Yes, (80 y.o.) 2 D DM No 0 S2 Prior Stroke/TIA No 0 V Vascular Disease No 0 A Age 65-74 No, (80 y.o.) 0 Sc Sex male 0 [id number] Score 2 Score last updated 10/06/20 1:11 PM EDT IMPRESSIONS/RECOMMENDATIONS: Atrial flutters/p ROSI/DCCV -Remains in normal sinus rhythm with controlled rate. He is asymptomatic. -No evidence of heart failure. -Continue Eliquis 5mg BID, amiodarone 200 mg daily and metoprolol 25 mg b.i.d. Pneumothorax: -S/P chest tube placement. -Management per cardiothoracic surgery. CAD s/p coronary stenting (2009) and 2-vessel CABG (2017), Afib -stable, no angina. 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 The document was proofread, however unrecognized voice recognition gravity prospecting operator errors may be present. * Afshan Pfeiffer MD - 10/06/2020 9:43 AM EDT Images from the original note were not included. Hospitalist Progress Note 10/06/2020 9:43 AM [phone]: Please page me for patient care issues. [phone]: Please page [facility] night Hospitalist for any issues. Subjective: Admit Date: 10/02/2020 PCP: No primary care provider on file. Room#: [id number] I was wearing N95 mask throughout the [...] included. Hospitalist Progress Note 10/05/2020 4:14 PM [phone]: Please page me for patient care issues. [phone]: Please page [facility] night Hospitalist for any issues. Subjective: Admit Date: 10/02/2020 PCP: No primary care provider on file. Room#: 6896/[id number] I was wearing N95 mask throughout the [...] 6 2* 5 LIVER PROFILE: Recent Labs 10/03/20 044 LABALBU 2.9* PT/INR: No results for input(s): [...] Full Code Discharge planning: TBD * Carlene Tmoas RD, LD - 10/05/2020 2:59 PM EDT [...] answer. Estimated Daily Nutrient Needs: Energy (kcal): 7015-8168 kcal/day; Weight Used for Energy Requirements: [place] Protein (g): 62-78 gm protein/day, monitor renal function; Weight Used for Protein Requirements: [place](0.8-1.0 gm protein/kg) Fluid (ml/day): Per MD; Method [...] last 72 hours. 10/04/20 NT pro BNP 25954 Wounds: (right buttocks stage 3) Current Nutrition Therapies: DIET CARDIAC; Daily Fluid Restriction: 1500 ml Anthropometric Measures: Height: 5' 11 (180.3 cm)(per chart) Current Body Weight: 179 lb (81.2 kg) Admission Body Weight: 202 lb (91.6 kg)(bedscale) Usual Body Weight: (pt reports weight stable WELLNESS RN (despite some fluid gain); per EPIC: 11/12/19- 183#) [place] Body Weight: 172 lbs; Nutrition Interventions: Food [...] later time/date. Filippo Pearson, PT,DPT * Vivi Calixto APRN - AUDI - 10/05/2020 5:40 AM EDT Images from [...] List Diagnosis Code Parapneumonic effusion J18.9, J91.8 senior care (current) use of antibiotics Z79.2 Atrial fibrillation [...] This note may have been dictated using [employer] Practice Edition 2.6 and/or [employer] Voice Recognition Feature. The document was proofread, however unrecognized voice recognition gravity prospecting operator errors may be present. * Afshan Pfeiffer MD - 10/04/2020 1:06 PM EDT Images from the original note were not included. Hospitalist Progress Note 10/04/2020 1:06 PM [phone]: Please page me for patient care issues. [phone]: Please page [facility] night Hospitalist for any issues. Subjective: Admit Date: 10/02/2020 PCP: No primary care provider on file. Room#: 6108/[id number] I was wearing N95 mask throughout the [...] Gonzalez MD. Fellow, Cardiovascular Disease. PGY . [phone] Associated attestation - Lucia Carrington MD - [...] as recommended. * Vivi Calixto APRN - AUDI - 10/04/2020 7:00 AM EDT Images from the original note were not included. Cardiothoracic Surgery Progress Note PATIENT NAME: Amaury Blank TODAY'S DATE: 10/04/2020 Surgery/Procedure: 10/02/20 Hydropneumothorax with subcutaneous emphysema with CT guided chest tube placement Interval History: Patient resting comfortably in bed. States he feels much better. Lungs clear all lobes. 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 The document was proofread, however unrecognized voice recognition gravity prospecting operator errors may be present. * Alexia Montiel RN - 10/03/2020 2:46 PM EDT Patient arrived to CT department from [facility] for right chest tube placement. Dr. White in to discuss procedure with patient and informed consent obtained. Patient assisted to CT table and placed supine. desk monitor on. 10.2 fr catheter placed right anterior chest wall. 400 cc cody colored fluid removed. Chest tube secured with suture and pneumostat chest drain valve placed on end. Area dressed with Stay fix and tegaderm Patient tolerated procedure well. Report called and patient transferred to [facility]. * Afshan Pfeiffer MD - 10/03/2020 11:08 AM EDT Images from the original note were not included. Hospitalist Progress Note 10/03/2020 11:08 AM [phone]: Please page me for patient care issues. [phone]: Please page [facility] night Hospitalist for any issues. Subjective: Admit Date: 10/02/2020 PCP: No primary care provider on file. Room#: 6108/250027 I was wearing N95 mask throughout the [...] 8.8 ANIONGAP 6 LIVER PROFILE: Recent Labs 10/03/20 0440 LABALBU 2.9* PT/INR: No results for input(s): PROTIME, INR in the last 72 hours. CARDIAC ENZYMES: Recent Labs 10/03/20 044 TROPONINI 0.026 Procalcitonin: Lab Results Component Value [...] Quezada RPH - 10/03/2020 7:10 AM EDT Panchoalma Calvin Blank was ordered Zinc Gluconate. 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 Atrial fibrillation (HCC) [...] Will Yes July 25 10:52am Power of Science Editor Yes July 25, 2021 10:52am Advance Directive Response Recorded Date/ Time Name of Medical Power of Science Editor kasi eddy May 20, 2022 4:00pm Advance Directives Yes April 11:00am Living Will Yes May 20, 2 022 4:00pm Power of Science Editor Yes May 20, 2022 4:00pm Advance Directive Response Recorded Date/ Time Advance Directives Yes April 12:00pm Living Will Yes May 20, 2 022 5:00pm Power of Science Editor Yes May 20, 2022 5:00pm Advance Directive Response Recorded Date/ Time Name of Medical Power of Science Editor November 29, 2022 1:42am Advance Directives Yes April 12:00pm Living Will Yes November 29, 2022 1 :42am Power of Science Editor Yes November 29, 2022 1:42am Advance Directive Response Recorded Date/ Time Name of Medical Power of Science Editor . November 29, 2022 5:23am Advance Directives Yes April 12:00pm Living Will Yes November 29, 2022 5 :23am Power of Science Editor Yes November 29, 2022 5:23am Advance Directive Response Recorded Date/ Time Name of Medical Power of Science Editor . November 29, 2022 5:23am Name of Medical Power of Science Editor Jus and Kasi Blank, both son's December 04, 2022 3:50pm Advance Directives Yes April 12:00pm Living Will Yes December 04, 2022 3 :50pm Power of Science Editor Yes December 04, 2022 3:50pm Advance Directive Response Recorded Date/ Time Name of Medical Power of Science Editor . November 29, 2022 5:23am Name of Medical Power of Science Editor Jus and Kasi Blank, both son's December 04, 2022 3:50pm Advance Directives Yes April 12:00pm Living Will Yes December 20, 2022 11:21am Power of Science Editor Yes December 20 11:21am Advance Directive Response Recorded Date/ Time Name of Medical Power of Science Editor . November 29, 2022 5:23am Name of Medical Power of Science Editor Jus and Kasi Blank, both son's December 04, 2022 3:50pm Name of Medical Power of Science Editor SON December 20, 2022 11:21am Advance Directives Yes April 12:00pm Living Will Yes December 20, 2022 11:21am Power of Science Editor Yes December 20 11:21am Advance Directive Response Recorded Date/ Time Name of Medical Power of Science Editor . November 29, 2022 5:23am Name of Medical Power of Science Editor Jus and Kasi Blank, both son's December 04, 2022 3:50pm Name of Medical Power of Science Editor SON December 20, 2022 11:21am Name of Medical Power of Science Editor Kasi and Jus Blank January 03, 2023 6:43am Advance Directives Yes April 12:00pm Living Will Yes January 03, 2023 6 :43am Power of Science Editor Yes January 03, 2023 6:43am Latest Code Status on File Code Status Date Activated Date Inactivated Comments DNR-CCA 01/06/2023 1:46 PM 01/09/2023 4:42 PM Question Answer Comments DNR Order Discussed With: Patient Advance Directive Response Recorded Date/ Time Name of Medical Power of Science Editor Kasi and Jus Blank January 03, 2023 6:43am Advance Directives Yes April 12:00pm Living Will Yes January 03, 2023 6 :43am Power of Science Editor Yes January 03, 2023 6:43am Latest Code Status on File Code Status Date Activated Date Inactivated Comments DNR-CCA 01/06/2023 1:46 PM 01/09/2023 4:42 PM Question Answer Comments DNR Order Discussed With: Patient Advance Directive Response Recorded Date/ Time Advance Directives Yes April 11:00am Living Will Yes January 03, 2023 5 :43am Power of Science Editor Yes January 03, 2023 5:43am Advance Directive Response Recorded Date/ Time Advance Directives Yes April 11:00am Living Will No June 06 4:25pm Power of Science Editor No June 06, 2023 4:25pm Advance Directive Response Recorded Date/ Time Advance Directives Yes April 11:00am Living Will No June 20, 023 8:26am Power of Science Editor No June 20, 2023 8:26am Advance Directive Response Recorded Date/ Time Advance Directives Yes April 12:00pm Living Will No June 20, 023 9:26am Power of Science Editor No June 20, 2023 9:26am Advance Directive Response Recorded Date/ Time Name of Medical Power of Science Editor cecilia blank November 10, 2023 5:50pm Advance Directives Yes April 12:00pm Living Will Yes November 10, 2023 5 :50pm Power of Science Editor Yes November 10, 2023 5:50pm Advance Directive Response Recorded Date/ Time Advance Directives Yes April 12:00pm Advance Directive Response Recorded Date/ Time Living Will Yes May 11 7:05pm Do you have a Healthcare Pow er of Science Editor? Yes May 11, 2021 7:05pm Do you have a Healthcare Pow er of Science Editor? Yes November 08, 2024 4:17pm Name of Medical Power of Science Editor Damon wilhelm Kasi [employer] November 08, 2024 4:17pm Advance Directives Yes April 12:00pm Advance Directive Response Recorded Date/ Time Living Will Yes May 11 7:05pm Do you have a Healthcare Pow er of Science Editor? Yes May 11, 2021 7:05pm Do you have a Healthcare Pow er of Science Editor? Yes November 08, 2024 4:17pm Name of Medical Power of Science Editor Damon and Kasi Gordillo November 08, 2024 4:17pm Do you have a Healthcare Pow er of Science Editor? Yes December 14, 2024 9:04am Name of Medical Power of Science Editor BETWEEN 2 BK LUU AND KASI December 14, 2024 9:04am Advance Directives Yes April 12:00pm Advance Directive Response Recorded Date/ Time Living Will Yes May 11, 7:05pm Do you have a Healthcare Pow er of Science Editor? Yes May 11, 2021 7:05pm Do you have a Healthcare Pow er of Science Editor? Yes November 08, 2024 4:17pm Name of Medical Power of Science Editor Damon and Kasi Gordillo November 08, 2024 4:17pm Do you have a Healthcare Pow er of Science Editor? Yes December 14, 2024 9:04am Name of Medical Power of Science Editor BETWEEN 2 BK LUU AND KASI December 14, 2024 9:04am Advance Directives on File Yes Augus t 2024 7:06am Living Will Yes February 23 7:06am Do you have a Healthcare Pow er of Science Editor? Yes February 23, 2025 7:06am Name of Medical Power of Science Editor jus son February 23, 2025 7:06am Advance Directives Yes February 23, 2025 7:06am Summary Purpose Family History No Family History Records Found Relationship Condition Age at Onset Recorded Date/T bola father Coronary artery disease Unknown mother Malignant neoplasm Unknown Chief Complaint and Reason for Visit Chief Complaint LABS 6MO LABS PRIOR CAROTID, MESENTERIC & SUCLAVIAN ARTERY STENOSIS Reason for Visit Anemia Chronic kidney disease (CKD) Pancytopenia Chief Complaint HYPERTENSION 6 M FU PER MMM Reason for Visit Mitral valve insuffi ciency PAD (peripheral artery disease) Atherosclerotic heart disease of enterprise coronary artery without angina pectoris Atrial fibrillation and flutter Essential hypertension Hyperlipidemia [id number] Aortocoronary bypass status Mitral valve insufficiency PAD (peripheral artery disease) Atherosclerotic heart disease of enterprise coronary artery without angina pectoris Atrial fibrillation and flutter Essential hypertension Hyperlipidemia [id number] Aortocoronary bypass status Chief Complaint 4 M FU Reason for Visit Mitral valve insuffi ciency PAD (peripheral artery disease) Atherosclerotic heart disease of enterprise coronary artery without angina pectoris Atrial fibrillation and flutter Essential hypertension Hyperlipidemia Chief Complaint 4 M FU FALL, ELEVATED TROPONIONS, PANCYTOPENIA FALL, ELEVATED TROPONIONS, PANCYTOPENIA Reason for Visit Mitral valve insuffi ciency PAD (peripheral artery disease) Atherosclerotic heart disease of enterprise coronary artery without angina pectoris Atrial fibrillation [...] (peripheral artery disease) Atherosclerotic heart disease of enterprise coronary artery without angina pectoris Atrial fibrillation [...] (peripheral artery disease) Atherosclerotic heart disease of enterprise coronary artery without angina pectoris Atrial fibrillation [...] (peripheral artery disease) Atherosclerotic heart disease of enterprise coronary artery without angina pectoris Atrial fibrillation [...] (peripheral artery disease) Atherosclerotic heart disease of enterprise coronary artery without angina pectoris Atrial fibrillation [...] (peripheral artery disease) Atherosclerotic heart disease of enterprise coronary artery without angina pectoris Atrial fibrillation [...] 2 UNITS PRBC FALL FALL ADMISSION EXAM PRISON LAB WORK ADMISSION EXAM [facility]ISON LAB WORK Fall LABWORK READMISSION EXAM LABWORK LAB WORK LAB WORK S/P [facility] 01/09/23 (SCANNED) Reason for Visit Mitral valve insuffi ciency PAD (peripheral artery disease) Atherosclerotic heart disease of enterprise coronary artery without angina pectoris Atrial fibrillation [...] (peripheral artery disease) Atherosclerotic heart disease of enterprise coronary artery without angina pectoris Atrial fibrillation and flutter Essential hypertension Hyperlipidemia Chief Complaint 4 M FU FALL, ELEVATED TROPONIONS, PANCYTOPENIA FALL, ELEVATED TROPONIONS, PANCYTOPENIA FALL, ELEVATED TROPONIONS, PANCYTOPENIA FALL, ELEVATED TROPONIONS, PANCYTOPENIA FALL, ELEVATED TROPONIONS, PANCYTOPENIA FALL, ELEVATED TROPONIONS, PANCYTOPENIA FALL 2 UNITS PRBC FALL FALL ADMISSION EXAM PRISON LAB WORK ADMISSION EXAM PRISON LAB WORK Fall LABWORK READMISSION EXAM LABWORK LAB WORK LAB WORK S/P [facility] 01/09/23 (SCANNED) LAB WORK Reason for Visit Mitral valve insuffi ciency PAD (peripheral artery disease) Atherosclerotic heart disease of enterprise coronary artery without angina pectoris Atrial fibrillation [...] (peripheral artery disease) Atherosclerotic heart disease of enterprise coronary artery without angina pectoris Atrial fibrillation and flutter Essential hypertension Hyperlipidemia Chief Complaint FALL, ELEVATED TROPO NIONS, PANCYTOPENIA FALL, ELEVATED TROPONIONS, PANCYTOPENIA FALL, ELEVATED TROPONIONS, PANCYTOPENIA FALL, ELEVATED TROPONIONS, PANCYTOPENIA FALL, ELEVATED TROPONIONS, PANCYTOPENIA FALL, ELEVATED TROPONIONS, PANCYTOPENIA FALL 2 UNITS PRBC FALL FALL ADMISSION EXAM PRISON LAB WORK ADMISSION EXAM [facility]ISON LAB WORK Fall LABWORK READMISSION EXAM LABWORK LAB WORK LAB WORK S/P [facility] 01/09/23 (SCANNED) LAB WORK LAB WORK Reason [...] (peripheral artery disease) Atherosclerotic heart disease of enterprise coronary artery without angina pectoris Atrial fibrillation and flutter Essential hypertension Hyperlipidemia Chief Complaint ADMISSION EXAM PRISON LAB WORK Fall LABWORK READMISSION EXAM LABWORK LAB WORK LAB WORK S/P [facility] 01/09/23 (SCANNED) LAB WORK LAB WORK LAB WORK LAB WORK LAB WORK LAB WORK LAB WORK LAB WORK LAB WORK LAB WORK 1YR LABS PRIOR([facility]) WOUND Reason for Visit Mitral valve insuffi ciency PAD (peripheral artery disease) Atherosclerotic heart disease of enterprise coronary artery without angina pectoris Atrial fibrillation and flutter Essential hypertension Hyperlipidemia Anemia Pancytopenia Peripheral vascular disease Non-pressure 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 Chief Complaint LAB WORK S/P [facility] 01/09/23 (SCANNED) LAB WORK LAB WORK LAB WORK LAB WORK LAB WORK LAB WORK LAB WORK LAB WORK LAB WORK LAB WORK 1YR LABS PRIOR([facility]) WOUND CONSULT-FOOT WOUND LT HEEL WOUND BRUIT OF RT CAROTID, CAD Reason for Visit Mitral valve insuffi ciency PAD (peripheral artery disease) Atherosclerotic heart disease of enterprise coronary artery without angina pectoris Atrial fibrillation [...] WORK LAB WORK LAB WORK 1YR LABS PRIOR([facility]) WOUND CONSULT-FOOT WOUND LT HEEL BRUIT OF [...] WORK LAB WORK LAB WORK 1YR LABS PRIOR([facility]) WOUND CONSULT-FOOT WOUND LT HEEL BRUIT OF [...] heel and midfoot with fat layer exposed [id number] Chief Complaint LAB WORK LAB WORK LAB [...] heel and midfoot with fat layer exposed [id number] Debility General weakness Hyperkalemia Palpitations Chief Complaint [...] heel and midfoot with fat layer exposed [id number] Acute respiratory failure with hypoxia Anemia Aspiration pneumonia Debility General weakness Hyperkalemia Hyperlipidemia Palpitations Pulmonary hypertension Severe sinus bradycardia Atherosclerotic heart disease of enterprise coronary artery without angina pectoris Atrial fibrillation [...] heel and midfoot with fat layer exposed [id number] Acute respiratory failure with hypoxia Aspiration pneumonia [...] heel and midfoot with fat layer exposed [id number] Acute respiratory failure with hypoxia Aspiration pneumonia Subclavian artery stenosis, left Anemia Edema Peripheral vascular disease Non-pressure 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 [id number] Chief Complaint CONSULT-FOOT WOUND L T HEEL [...] heel and midfoot with fat layer exposed [id number] Hyperkalemia Acute respiratory failure with hypoxia Aspiration pneumonia Subclavian artery stenosis, left Anemia Edema [id number] Peripheral vascular disease Non-pressure 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 [id number] Hyperkalemia Iron deficiency anemia Anemia Dermatitis Edema Multiple excoriations [id number] Chief Complaint CONSULT-FOOT WOUND L T HEEL [...] heel and midfoot with fat layer exposed [id number] Hyperkalemia Pancytopenia Acute respiratory failure with hypoxia Aspiration pneumonia Subclavian artery stenosis, left Pancytopenia Anemia Edema [id number] Peripheral vascular disease Non-pressure 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 [id number] Hyperkalemia Iron deficiency anemia Anemia Anemia Ulcerative colitis Dermatitis Edema Multiple excoriations [id number] Chief Complaint BRUIT OF RT CAROTID, CAD [...] heel and midfoot with fat layer exposed [id number] Hyperkalemia Pancytopenia Acute respiratory failure with hypoxia Aspiration pneumonia Subclavian artery stenosis, left Pancytopenia Anemia Edema [id number] Peripheral vascular disease Non-pressure 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 [id number] Hyperkalemia Iron deficiency anemia Anemia Anemia Ulcerative colitis Dermatitis Edema Multiple excoriations [id number] Cellulitis of right leg [id number] Chief Complaint WOUND 6WKS LABS H FU WOUND PANCYTOPENIA WOUND 1 Y FU/PREV PFM LABS 12WKS LABS ABNL LABS Reason for Visit Edema [id number] Peripheral vascular disease Non-pressure 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 [id number] Hyperkalemia Iron deficiency anemia Anemia Anemia Ulcerative colitis Dermatitis Edema Multiple excoriations [id number] Cellulitis of right leg [id number] Mitral valve insufficiency PAD (peripheral artery disease) [...] INGUINAL HERNIA December 10, 2024 1:02pm PREOP Renee 19th, 2025 1:11 pm Lap Robotic Inguinal Hernia w/mesh December 27, 2024 8:27am Lap Robotic Inguinal Hernia w/mesh December 27, 2024 10:11am EORDERS/ 2 DRS AND 2 ORDERS February 15, 2025 3:33pm Chronic vascular disorders of intestine February 23, 2025 6:29am Chief Complaint Admit Date 1 YEAR LABS November 08, 2024 12:51 [...] AND 2 ORDERS February 15, 2025 3:33pm Chronic vascular disorders of intestine February 23, 2025 6:29am LABS March 03, 2025 10:45am F/U (SCHEDULED PER PCP) March 03 10:57am Reason for Visit Admit Date Anemia November 08, 2024 12:51 pm Iron deficiency anemia November 08, 2024 12 :51pm Left inguinal hernia December 10, 2024 1:0 2pm Anemia March 03, 2025 10:57am Iron deficiency anemia March 03 10:57am Reason for Referral Specialty Diagnoses / Procedures Referred By Johnson t Referred To Contact CT IMAGING Diagnoses Intraparenchymal hematoma of right side of brain due to trauma, with unknown loss of consciousness status, initial encounter (HCC) Procedures CT BRAIN WO IVCON CT HEAD/BRAIN W/O CONTRAST MATERIAL Sergio Sofia, WIDE AREA NETWORK ADMINISTRATOR.METAL BONDING WORKER [address] [place] [address] [place] [id number] Referral ID Status Reason Start Date Expiration Date V isits Requested Visits Authorized [id number] Closed Auto-Generated Referral Patient Cleared - INN Insurance Found 01/20/2023 02/05/2024 1 1 Additional Source Comments Reason for Visit (unrecogniz ed section and content) Reason Comments Reason Comments Hospital Follow Up Reason Comments Contact Center Call Reason Comments Radiology CT Specialty Diagnoses / Procedures Referred By Johnson [email or web address] Referred To Contact CT IMAGING Diagnoses Intraparenchymal hematoma of right side of brain due to trauma, with unknown loss of consciousness status, initial encounter ([facility]) Procedures CT BRAIN WO IVCON CT HEAD/BRAIN W/O CONTRAST MATERIAL Sergio Sofia APRN.METAL BONDING WORKER [address] [place] [address] [place] [id number] Referral ID Status Reason Start Date Expiration Date V isits Requested Visits Authorized [id number] Closed Auto-Generated Referral Patient Cleared - INN [...] section and content) DATE CREATED AUTHOR 11/07/2020 [facility] DATE CREATED AUTHOR AUTHOR'S ORGANIZ ATION 01/20/[address] [facility] DATE CREATED AUTHOR AUTHOR'S ORGANIZ ATION 01/30/2023 [facility] DATE CREATED AUTHOR AUTHOR'S ORGANIZ ATION 07/05/2023 [facility] ([place]) DATE CREATED AUTHOR AUTHOR'S ORGANIZ ATION 05/12/2025 [facility] Goals (unrecognized section and content) Goals may [...] Primary Care Provider, Referrin g Provider Active Tereas Pop PA, PA Attending Provider Active Team [...] Santacruz MD Primary Care Provider Active Teresa Pop PA, PA Attending Provider, Referr ing Provider Active [...] Dr. Lupe Joe DO Emergency Provider Active Saddle And Side Wire Stitcher Relationship Specialty Start Date End Date Elida Borges [address] [place] [id number] PCP - General Cardiology 11/29/14 Saddle And Side Wire Stitcher Relationship Specialty Start Date End Date Elida Borges [address] [place] [address] PCP - General Cardiology 11/29/14 Team Status: [...] Santacruz MD Referring Provider Active Karey Jordan BEADING INSTALLER, BEADING INSTALLER-C Attending Provider Active Dr. Paco Norman MD Primary Care Provider Active Team Status: Inactive Member Role Status Dates Dr. Rosa Maria Santacruz MD Primary Care Provider Active Honey Enriquez BEADING INSTALLER, BEADING INSTALLER-C Attending Provider Active Team Status: Inactive Member Role Status Dates Dr. Paco Norman MD Primary Care Provider Active Honey Enriquez BEADING INSTALLER, BEADING INSTALLER-C Attending Provider Active Team Status: Inactive Member [...] Refer ring Provider Active Dr. Warren Sampson , DPM Attending Provider Active Saddle And Side Wire Stitcher Relationship Specialty Start Date End Date Elida Borges [address] [place] [id number] PCP - General Cardiology 11/29/14 Team Status: [...] Role Status Dates Dr. Lupe Joe DO Emergency Provider Active Dr. Rosa [...] MD Primary Care Provider Active Dr. Jakob Schwiger , DO Emergency Provider Active Dr. Oniel Moulton MD Admit Provider, Other Provider Active Dr. Lakshmi Carpenter MD Attending Provider, Other Provid er Active Dr. Kvng James MD Other Provider Active Team Status: Active Member Role Status Dates Dr. oRsa Maria Santacruz MD Primary Care Provider Active [...] Bruner MD Other Provider Active Tierney Menendez BEADING INSTALLER, BEADING INSTALLER-C Other Provider Active Team Status: Active Member [...] Bruner MD Other Provider Active Tierney Menendez BEADING INSTALLER, BEADING INSTALLER-C Other Provider Active Team Status: Active Member [...] Bruner MD Other Provider Active Tierney Menendez BEADING INSTALLER, BEADING INSTALLER-C Other Provider Active Dr. Irving Horowitz , [...] Bruner MD Other Provider Active Tierney Menendez BEADING INSTALLER, BEADING INSTALLER-C Other Provider Active Team Status: Active Member Role Status Dates Dr. Rosa Maria Santacruz MD Primary Care Provider Active Dr. aJkob Nowak , DO Emergency Provider Active Dr. Oniel Moulton MD Admit Provider, Other Provider Active Dr. Lakshmi Carpenetr MD Other Provider Active Dr. Kvng James MD Other Provider Active Dr. Priya Sheehan MD Other Provider Active Dr. William Dawson MD Other Provider Active Dr. Robby Lai , Attending Provider, Other Provide r Active Dr. Daniel Jimenez MD Other Provider Active Dr. Rufus Bruner MD Other Provider Active Tierney Menendez BEADING INSTALLER, BEADING INSTALLER-C Other Provider Active Team Status: Inactive Member Role Status Dates Dr. Rosa Maria Santacruz MD Primary Care Provider Active Dr. Jakob Nowak , Emergency Provider Active Dr. Oniel Moulton MD Admit Provider, Other Provider Active Dr. Lakshmi Carpenter MD Other Provider Active Dr. Kvng James MD Other Provider Active Dr. Priya Sheehan MD Attending Provider Active Dr. William Dawson MD Other Provider Active Dr. Robby Lai , Other Provider Active Dr. Daniel Jimenez MD Other Provider Active Dr. Rufus Bruner MD Other Provider Active Tierney Menendez NP, BEADING INSTALLER-C Other Provider Active Team Status: Inactive Member Role Status Dates Dr. Mathieu Mcintyre MD Attending Provider Active Dr. Rosa Maria Santacruz MD Primary Care Provider, Referrin g Provider Active Team Status: Active Member Role Status Dates Dr. Rosa Maria Santacruz MD Primary Care Provider Active Dr. Jakob Schwiger , DO Emergency Provider Active Dr. Oniel [...] Bruner MD Other Provider Active Tierney Menendez BEADING INSTALLER, BEADING INSTALLER-C Other Provider Active Team Status: Active Member [...] Other Provider Active Dr. Robby Lai , Other Provider Active Dr. Daniel Jimenez MD Other Provider Active Dr. Rufus Bruner MD Other Provider Active Tierney Menendez BEADING INSTALLER, BEADING INSTALLER-C Other Provider Active Dr. Irving Horowitz , [...] Other Provider Active Dr. Robby Lai DO Attending Provider, Other Provide r Active Dr. Daniel Jimenez MD Other Provider Active Dr. Rufus Bruner MD Other Provider Active Tierney Menendez NP, BEADING INSTALLER-C Other Provider Active Team Status: Active Member [...] MD Primary Care Provider Active Dr. Singh Amaya MD Attending Provider Active Team Status: Active [...] Member Role Status Dates Dr. Rosa Maria aSntacruz MD Primary Care Provider Active Dr. Odette [...] Provider, Referrin g Provider Active Karey Jordan BEADING INSTALLER, BEADING INSTALLER-C Attending Provider Active Team Status: Inactive Member [...] 2024 End: October 06, 2024 Dr. Singh Amaya MD Attending Provider Active Start: October 06, 2024 End: October 06, 2024 Dr. Singh Amaya MD Referring Provider Active Start: October 06, [...] 2024 End: November 18, 2024 Dr. Singh Amaya MD Attending Provider Active Start: November 18, 2024 End: November 18, 2024 Dr. Singh Amaya MD Referring Provider Active Start: November 18, 2024 End: November 18, 2024 Team Status: Active Member Role Status Dates Dr. Jakob Flower MD Primary Care Provider Active Team Status: Inactive Member Role Status Dates Dr. Jakob Flower MD Primary Care Provider Active Start: November 29, 2024 End: November 29, 2024 Dr. Jakob Flower MD Attending Provider Active St art: November 29, 2024 End: November 29, 2024 Dr. Jakob Flower MD Referring Provider Active St art: November 29, 2024 End: November 29, 2024 Team Status: Inactive Member Role Status Dates Dr. Jakob Flower MD Primary Care Provider Active Start: December 06, 2024 End: December 06, 2024 Dr. Jakob Flower MD Attending Provider Active St art: December 06, 2024 End: December 06, 2024 Dr. Jakob Flower MD Referring Provider Active St art: December 06, 2024 End: December 06, 2024 Team Status: Inactive Member Role Status Dates Dr. Rosa Maria Santacruz MD Referring Provider Active Start: December 10, 2024 End: December 10, 2024 Dr. Aurelia Umaña MD Attending Provider Active Start: December 10, 2024 End: December 10, 2024 Dr. Jakob Flower MD Primary Care Provider Active Start: December 10, 2024 End: December 10, 2024 Team Status: Active Member Role/Relationship Status Dates Dr. Jakob Flower MD Primary Care Provider Active Team Status: [...] 2024 End: October 06, 2024 Dr. Singh Amaya MD Attending Provider Active Start: October 06, 2024 End: October 06, 2024 Dr. Singh Amaya MD Referring Provider Active Start: October 06, [...] 2024 End: November 18, 2024 Dr. Singh Amaya MD Attending Provider Active Start: November 18, 2024 End: November 18, 2024 Dr. Singh Amaya MD Referring Provider Active Start: November 18, 2024 End: November 18, 2024 Team Status: Inactive Member Role/Relationship Status Dates Dr. Jkaob Flower MD Primary Care Provider Active Start: November 29, 2024 End: November 29, 2024 Dr. Jakob Flower MD Attending Provider Active St art: November 29, 2024 End: November 29, 2024 Dr. Jakob Flower MD Referring Provider Active St art: November 29, 2024 End: November 29, 2024 Team Status: Inactive Member Role/Relationship Status Dates Dr. Jakob Flower MD Primary Care Provider Active Start: December 06, 2024 End: December 06, 2024 Dr. Jakob Flower MD Attending Provider Active St art: December 06, 2024 End: December 06, 2024 Dr. Jakob Flower MD Referring Provider Active St art: December 06, 2024 End: December 06, 2024 Team Status: Inactive Member Role/Relationship Status Dates Dr. Rosa Maria Santacruz MD Referring Provider Active Start: December 10, 2024 End: December 10, 2024 Dr. Aurelia Umaña MD Attending Provider Active Start: December 10, 2024 End: December 10, 2024 Dr. Jakob Flower MD Primary Care Provider Active Start: December 10, 2024 End: December 10, 2024 Team Status: Active Member Role/Relationship Status Dates Dr. Jakob Flower MD Primary Care Provider Active Start: December 16, 2024 End: December 16, 2024 Dr. Raquel Luevano MD Attending Provider Activ e Start: December 16, 2024 End: December 16, 2024 Dr. Aurelia Umaña MD Referring Provider Active Start: December 16, 2024 End: December 16, 2024 Team Status: Inactive Member Role/Relationship Status Dates Dr. Jakob Flower MD Primary Care Provider Active Start: December 27, 2024 End: December 27, 2024 Dr. Aurelia Umaña MD Attending Provider Active Start: December 27, 2024 End: December 27, 2024 Dr. Aurelia Umaña MD Referring Provider Active Start: December 27, 2024 End: December 27, 2024 Team Status: Active Member Role/Relationship Status Dates Dr. Jakob Flower MD Primary Care Provider Active Start: December 27, 2024 Dr. Aurelia Umaña MD Attending Provider Active Start: December 27, 2024 Dr. Aurelia Umaña MD Referring Provider Active Start: December 27, 2024 Dr. Aurelia Umaña MD Other Provider Active Start: December [...] 2024 End: November 18, 2024 Dr. Singh Amaya MD Attending Provider Active Start: November 18, 2024 End: November 18, 2024 Dr. Singh Amaya MD Referring Provider Active Start: November 18, 2024 End: November 18, 2024 Team Status: Inactive Member Role/Relationship Status Dates Dr. Jakob Flower MD Primary Care Provider Active Start: November 29, 2024 End: November 29, 2024 Dr. Jakob Flower MD Attending Provider Active St art: November 29, 2024 End: November 29, 2024 Dr. Jakob Flower MD Referring Provider Active St art: November 29, 2024 End: November 29, 2024 Team Status: Inactive Member Role/Relationship Status Dates Dr. Jakob Flower MD Primary Care Provider Active Start: December 06, 2024 End: December 06, 2024 Dr. Jakob Flower MD Attending Provider Active St art: December 06, 2024 End: December 06, 2024 Dr. Jakob Flower MD Referring Provider Active St art: December 06, 2024 End: December 06, 2024 Team Status: Inactive Member Role/Relationship Status Dates Dr. Rosa Maria Santacruz MD Referring Provider Active Start: December 10, 2024 End: December 10, 2024 Dr. Aurelia Umaña MD Attending Provider Active Start: December 10, 2024 End: December 10, 2024 Dr. Jakob Flower MD Primary Care Provider Active Start: December 10, 2024 End: December 10, 2024 Team Status: Active Member Role/Relationship Status Dates Dr. Jakob Flower MD Primary Care Provider Active Start: December 16, 2024 End: December 16, 2024 Dr. Raquel Luevano MD Attending Provider Activ e Start: December 16, 2024 End: December 16, 2024 Dr. Aurelia Umaña MD Referring Provider Active Start: December 16, 2024 End: December 16, 2024 Team Status: Inactive Member Role/Relationship Status Dates Dr. Jakob Flower MD Primary Care Provider Active Start: December 27, 2024 End: December 27, 2024 Dr. Aurelia Umaña MD Attending Provider Active Start: December 27, 2024 End: December 27, 2024 Dr. Aurelia Umaña MD Referring Provider Active Start: December 27, 2024 End: December 27, 2024 Team Status: Active Member Role/Relationship Status Dates Dr. Jakob Flower MD Primary Care Provider Active Start: December 27, 2024 Dr. Aurelia Umaña MD Attending Provider Active Start: December 27, 2024 Dr. Aurelia Umaña MD Referring Provider Active Start: December 27, 2024 Dr. Aurelia Umaña MD Other Provider Active Start: December 27, 2024 Team Status: Inactive Member Role/Relationship Status Dates Dr. Jakob Flower MD Primary Care Provider Active Start: February 15, 2025 End: February 15, 2025 Dr. Jakob Flower MD Attending Provider Active St art: February 15, 2025 End: February 15, 2025 Dr. Jakob Flower MD Referring Provider Active St art: February 15, 2025 End: February 15, 2025 Dr. Singh Amaya MD Other Provider Active St art: February 15, 2025 End: February 15, 2025 Team Status: Inactive Member Role/Relationship Status Dates Dr. Jakob Flower MD Primary Care Provider Active Start: February 23, 2025 End: February 23, 2025 Dr. Singh Amaya MD Attending Provider Active Start: February 23, 2025 End: February 23, 2025 Dr. Singh Amaya MD Referring Provider Active Start: February 23, 2025 End: February 23, 2025 Team Status: Inactive Member Role/Relationship Status Dates [...] 2024 End: November 18, 2024 Dr. Singh Amaya MD Attending Provider Active Start: November 18, 2024 End: November 18, 2024 Dr. Singh Amaya MD Referring Provider Active Start: November 18, 2024 End: November 18, 2024 Team Status: Inactive Member Role/Relationship Status Dates Dr. Jakob Flower MD Primary Care Provider Active Start: November 29, 2024 End: November 29, 2024 Dr. Jakob Flower MD Attending Provider Active St art: November 29, 2024 End: November 29, 2024 Dr. Jakob Flower MD Referring Provider Active St art: November 29, 2024 End: November 29, 2024 Team Status: Inactive Member Role/Relationship Status Dates Dr. Jakob Flower MD Primary Care Provider Active Start: December 06, 2024 End: December 06, 2024 Dr. Jakob Flower MD Attending Provider Active St art: December 06, 2024 End: December 06, 2024 Dr. Jakob Flower MD Referring Provider Active St art: December 06, 2024 End: December 06, 2024 Team Status: Inactive Member Role/Relationship Status Dates Dr. Rosa Maria Santacruz MD Referring Provider Active Start: December 10, 2024 End: December 10, 2024 Dr. Aurelia Umaña MD Attending Provider Active Start: December 10, 2024 End: December 10, 2024 Dr. Jakob Flower MD Primary Care Provider Active Start: December 10, 2024 End: December 10, 2024 Team Status: Active Member Role/Relationship Status Dates Dr. Jakob Flower MD Primary Care Provider Active Start: December 16, 2024 End: December 16, 2024 Dr. Raquel Luevano MD Attending Provider Activ e Start: December 16, 2024 End: December 16, 2024 Dr. Aurelia Umaña MD Referring Provider Active Start: December 16, 2024 End: December 16, 2024 Team Status: Inactive Member Role/Relationship Status Dates Dr. Jakob Flower MD Primary Care Provider Active Start: December 27, 2024 End: December 27, 2024 Dr. Aurelia Umaña MD Attending Provider Active Start: December 27, 2024 End: December 27, 2024 Dr. Aurelia Umaña MD Referring Provider Active Start: December 27, 2024 End: December 27, 2024 Team Status: Active Member Role/Relationship Status Dates Dr. Jakob Flower MD Primary Care Provider Active Start: December 27, 2024 Dr. Aurelia Umaña MD Attending Provider Active Start: December 27, 2024 Dr. Aurelia Umaña MD Referring Provider Active Start: December 27, 2024 Dr. Aurelia Umaña MD Other Provider Active Start: December 27, 2024 Team Status: Inactive Member Role/Relationship Status Dates Dr. Jakob Flower MD Primary Care Provider Active Start: February 15, 2025 End: February 15, 2025 Dr. Jakob Flower MD Attending Provider Active St art: February 15, 2025 End: February 15, 2025 Dr. Jakob Flower MD Referring Provider Active St art: February 15, 2025 End: February 15, 2025 Dr. Singh Amaya MD Other Provider Active St art: February 15, 2025 End: February 15, 2025 Team Status: Inactive Member Role/Relationship Status Dates Dr. Jakob Flower MD Primary Care Provider Active Start: February 23, 2025 End: February 23, 2025 Dr. Singh Amaya MD Attending Provider Active Start: February 23, 2025 End: February 23, 2025 Dr. Singh Amaya MD Referring Provider Active Start: February 23, 2025 End: February 23, 2025 Team Status: Active Member Role/Relationship Status Dates Dr. Rosa Maria Santacruz MD Primary Care Provider Active Start: March 03, 2025 Dr. Mathieu Mcintyre MD Attending Provider Active S tart: March 03, 2025 Dr. Mathieu Mcintyre MD Referring Provider Active S tart: March 03, 2025 Dr. Oniel Moulton MD Other Provider Active Sta rt: March 03, 2025 Team Status: Inactive Member Role/Relationship Status Dates Dr. Jakob Flower MD Primary Care Provider Active Start: March 03, 2025 End: March 03, 2025 Dr. Jakob Flower MD Referring Provider Active St art: March 03, 2025 End: March 03, 2025 Dr. Mathieu Mcintyre MD Attending Provider Active S tart: March 03, 2025 End: March 03, 2025 Source Comments (unrecognize d section and content) In the event this informatio n is protected by the Federal Confidentiality of Alcohol and Drug Abuse Patient Records regulations: The Federal rules restrict any use of the information to criminally investigate or prosecute any alcohol or drug abuse patient.[facility] the event this information is protected by the Federal Confidentiality of Alcohol and Drug Abuse Patient Records regulations: The Federal rules restrict any use of the information to criminally investigate or prosecute any alcohol or drug abuse patient.[facility] the event this information is protected by the Federal Confidentiality of Alcohol and Drug Abuse Patient Records regulations: The Federal rules restrict any use of the information to criminally investigate or prosecute any alcohol or drug abuse patient.[facility] FOR RECORDS PERTAINING TO PATIENTS WHO ARE [...] BE BASED ON THE PRIMARY CLINICAL RECORDS. [facility] [employer] [facility]. provides no warranty or guarantee of the accuracy or completeness of information in this document.
--- NOTE | 2025-05-19 06:06 | RAD_ITS ---
EXAM: CHEST. CLINICAL HISTORY: Shortness of breath. COMPARISON: 04/26/2025. TECHNIQUE: One view. FINDINGS: Unremarkable median sternotomy wires. Unchanged mild bilateral pleural effusions. Unchanged passive atelectatic airspace disease of the lower lobes. Increased interstitial pulmonary congestion. Enlarged cardiac silhouette. Normal mediastinum and aidan. Normal visualized pulmonary arteries. Atheromatous plaques of the visualized aortic arch and descending thoracic aorta. Diffuse spondylosis of the visualized thoracic spine. Normal visualized ribs, clavicles. Degenerative joint disease. There is no demonstrated abnormality of the visualized soft tissue structures of the upper abdomen. RAD/Chest 1 View (Portable) IMPRESSION: Unremarkable median sternotomy wires. Unchanged mild bilateral pleural effusions. Unchanged passive atelectatic airspace disease of the lower lobes. Increased interstitial pulmonary congestion. Enlarged cardiac silhouette. Reading Location: [facility]
[2025-05-19 06:24] LABS: Anion Gap 17 (5-15); BUN 76 mg/dL (4-19); BUN/Creat Ratio 21.1 RATIO (10-20); Calcium,Total 8.9 mg/dL (7.6-11.0); Carbon Dioxide 20.9 mmol/L (21.0-32.0); Chloride 102 mmol/L (98-108); Glucose 161 mg/dL (70-99); Magnesium 2.4 mg/dL (1.5-2.2); Potassium 4.1 mmol/L (3.3-5.1); Pro- Brain NATRIURETIC PEPTIDE 25621 pg/mL (<=1800)
--- NOTE | 2025-05-19 07:12 | EX.ED.DYSGE1 ---
HPI History of Present Illness Informant: patient and EMS Narrative Narrative: Patient is 84-year-old male with history of chronic kidney disease congestive heart failure and chronic atrial fibrillation not on anticoagulation secondary to acute blood loss anemia and ulcerative colitis. He was admitted to the hospital on April 26 secondary to shortness of breath which was found to be from congestive heart failure. He was kept in the hospital and treated and had improvement of symptoms but secondary to debility was sent to a rehab center. He states at the rehab center he was able to come off the oxygen and was discharged home roughly 1 week ago. He states over the last 2 to 3 days he has had congestion and cough and has been bringing up sputum. He states that this morning he awoke and felt short of breath and secondary to this called EMS. EMS states when they arrived he had increased work of breathing and his pulse ox was approximately 70% on room air. Secondary to this he given breathing treatment and placed him on nonrebreather. Upon arrival the patient has had improvement to his oxygen saturation and does report overall feeling better. However with his recent admission and now return of shortness of breath he was concern for potential infection or volume overload once again. He does state he is been taking his medications as directed [facility] Medical History Kidney disease History of Holter monitoring H/O transesophageal echocardiography (ROSI) for monitoring Multiple excoriations Anemia Pulmonary hypertension Severe sinus bradycardia CKD (chronic kidney disease) stage 3, GFR 30-59 ml/min General weakness Debility Hyperkalemia Palpitations History of edema Elevated troponin Fever Mitral valve insufficiency PAD (peripheral artery disease) Pancytopenia History of right inguinal hernia History of umbilical hernia Wears hearing aid Wears glasses Alcohol use Thyroid disease Walker as ambulation aid High cholesterol Injury of head and neck Dietary restriction History of GI bleed Hx of ulcerative colitis History of stress test History of echocardiogram History of transesophageal echocardiography (ROSI) Cardiology follow-up encounter History of atrial fibrillation Emphysema of lung Hyperlipidemia Hypertension Atrial fibrillation Hypertension Former smoker History of cardioversion (~05/09/20) Subclavian artery stenosis, left (~10/15/19) Essential hypertension Thrombocytopenia Upper GI bleed Atherosclerotic heart disease of [place] coronary artery without angina pectoris Premature atrial contractions Atrial fibrillation and flutter MCC (current) use 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 Hematemesis/vomiting blood Upper GI bleed History of coronary artery disease Thrombocytopenia Ulcerative colitis Right carotid bruit Hypercholesterolemia Home Medications ?Medication ?Instructions ?Recorded ?Last Taken ?Type ferrous sulfate 325 mg (65 mg 325 mg PO DAILY vitamin 05/28/15 12/26/24 History iron) tablet vitamin B complex 1 each PO DAILY vitamin 02/07/16 12/26/24 History aspirin 81 mg tablet,delayed 81 mg PO MO Anticoagulation 04/14/23 12/20/24 History release zinc acetate 50 mg (zinc) capsule 50 mg PO DAILY Supplement 09/29/23 12/26/24 History atorvastatin 40 mg tablet (Lipitor) 40 mg PO DAILY cholesterol #90 tabs 03/08/24 12/26/24 Rx hydralazine 50 mg tablet 100 mg (2 x 50 mg) PO BID #360 tabs 02/18/25 02/23/25 Rx amlodipine 10 mg tablet 10 mg PO DAILY #90 tabs 03/14/25 Unknown Rx acetaminophen 325 mg tablet 650 mg (2 x 325 mg) PO Q6H PRN PRN 05/03/25 Unknown Rx Pain 1-10 Or Fever>100.7 #0 tabs bumetanide 2 mg tablet 2 mg PO BID #60 tabs 05/03/25 Unknown Rx potassium chloride 20 mEq 20 meq PO DAILYCM #0 tabs 05/03/25 Unknown Rx tablet,extended release(part/cryst) Allergy/AdvReac Type Severity Reaction Status Date / Time hydrochlorothiazide Allergy Severe Rash Verified 03/03/25 11:46 furosemide (From Lasix) Allergy Severe Verified 03/03/25 11:46 Rash Itchy lovastatin (From Mevacor) Allergy Rash Verified 03/03/25 11:46 Family History Father CAD (coronary artery disease) Mother Cancer breast Surgical History History of coronary artery stent placement S/P umbilical hernia repair, follow-up exam S/P right inguinal hernia repair History of umbilical hernia repair History of right inguinal hernia repair Hx of colonoscopy History of cardiac catheterization Hx of heart bypass surgery Hx of esophagogastroduodenoscopy Hx of CABG History of hand surgery History of vasectomy Aortocoronary bypass status (~02/12/17) Status post insertion of drug-eluting stent into right coronary artery for coronary artery disease (~04/2009) Social History adopted: No household members: spouse housing: house number of children: 2 current occupational status: retired Smoking Status: Former smoker Tobacco: How many years used: 50 (stopped about 10 yrs ago) how long ago did patient quit smokin years ago alcohol intake: current alcohol intake frequency: 3 or more drinks per day Alcohol type: beer, wine and hard liquor substance use type: does not use caffeine: Yes Type: coffee Number of servings: 2 ROS ROS ED Constitutional Constitutional ED: Denies chills or fever(s) Eyes Eyes: Denies change in vision ENT ENT ED: Reports rhinorrhea and sore throat Cardiovascular Cardiovascular: Reports orthopnea; Denies chest pain or racing heartbeat Respiratory/Chest Respiratory/Chest: Reports cough, dyspnea, dyspnea on exertion and orthopnea Gastrointestinal Gastrointestinal: Denies abdominal pain, diarrhea, nausea or vomiting Genitourinary Genitourinary ED: Denies dysuria Musculoskeletal Musculoskeletal: Denies back pain or myalgias Integumentary Denies rash Neurologic Neurologic: Denies headache(s) Hematologic/Lymphatic Hematologic/Lymphatic: Reports easy bleeding and easy bruising EXAM Physical Exam Const Vital Signs: 05/19/25 05:20 Pulse Rate 98 Respiratory Rate 24 H Respiratory Pattern Normal Positive well nourished and well developed General Appearance ED: well developed; Negative for pallor HEENT HEENT Narrative: Normocephalic atraumatic Nasal mucosa is hyperemic and boggy No tongue or lip swelling no oral lesions no airway edema or compromise There is cobblestoning noted in the posterior pharynx consistent with sinus drainage; no secondary findings to suggest infection Eyes PERRL and EOMs intact bilaterally General Eye ED: Negative for scleral icterus Neck supple and no JVD Chest Wall palpation of chest normal Resp Resp Narrative: Breath sounds are diminished throughout with rhonchi noted in bilateral bases and faint expiratory wheeze in the upper lobes Patient does have increased work of breathing with tachypnea and accessory muscle use Cardio regular rate Rate: other Other Details: Irregularly irregular rhythm with regular rate consistent with history of chronic atrial fibrillation GI normal to inspection, nondistended, normoactive bowel sounds, non-tender, non-distended and no masses GI Narrative: No fluid wave noted Auscultation: normoactive bowel sounds Palpation: soft Extremity Extremity Narrative: Trace to +1 pitting edema to the bilateral lower extremities that is equal and symmetric Negative Homans' sign bilaterally Neuro oriented x3, CN's II-XII intact bilaterally and no sensory deficits noted Sensorium / Orientation: alert Motor Exam: strength 5/5 throughout Psych mental status grossly normal Skin no rashes or lesions noted General Skin Exam: Negative for jaundice or pallor MDM MDM MDM Narrative Medical decision making narrative: Patient arrived to the ER with improvement in his pulse ox secondary to treatment provided by EMS but they had reported a pulse ox of approximately 70% on room air at home and he has no access to oxygen. He denied any chest pain or palpitations or tachycardia and even though he has chronic atrial fibrillation without anticoagulation use I have low concern for pulmonary embolus and do not feel the need for a CTA especially as he has a history of chronic kidney disease. Chest x-ray was obtained to assess for pneumonia versus pulmonary edema versus pneumothorax. This revealed pulmonary vascular congestion consistent with history of CHF and is roughly similar to end of March when he was admitted for volume overload. His creatinine is elevated at 3.5 but chart review reveals this is chronic in nature and his proBNP is grossly elevated at approximately 26,000 but this is also most likely elevated because of chronic kidney disease. As he has had congestion and cough and recent stay in the hospital as well as fpc there is also concern for potential viral infection such as COVID influenza or RSV so swab was ordered. Viral swab was negative. At this time his labs are at baseline. However when he comes off oxygen his pulse ox drops into the low 80s while at rest. As he does not have oxygen at home it is not safe for him to return home. With his history of chronic kidney disease and allergy to Lasix he will be provided IV Bumex and given Nitropaste to help reduce preload and the Bumex to reduce volume overload. However as he is still requiring oxygen at rest he will be admitted to the hospitalist service for continued treatment History & Record Review Discussion w/independent historian: EMS personnel and Patient Additional record(s) reviewed:: Prior inpatient record and Prior labs Lab Data Attestation: I reviewed the patient's lab results. Labs: Laboratory Results - last 24 hr 05/19/25 04:50 WBC 9.4 RBC 3.01 L Hgb 10.4 L Hct 30.8 L MCV 102.3 H MCH 34.6 H MCHC 33.8 RDW Std Deviation 50.3 H RDW Coeff of Chanel 13.2 Plt Count 112 L MPV 10.6 Immature Gran % (Auto) 0.300 Neut % (Auto) 73.7 H Lymph % (Auto) 14.8 L Scott % (Auto) 8.6 Eos % (Auto) 2.2 Baso % (Auto) 0.4 Absolute Neuts (auto) 6.9 Absolute Lymphs (auto) 1.39 Nucleated RBC % 0 Sodium 140 Potassium 4.1 Chloride 102 Carbon Dioxide 20.9 L Anion Gap 17 H BUN 76 H Creatinine 3.58 H Est GFR (MDRD) Non-Af 16 L BUN/Creatinine Ratio 21.1 H Glucose 161 H Calcium 8.9 Magnesium 2[place]4 [place] [address] H Radiography Diagnostic Testin view chest x-ray as interpreted by the emergency medicine physician reveals cardiomegaly with pulmonary vascular congestion and faint right-sided pleural effusion. No obvious infiltrate or pneumothorax noted Management Discussion w/another healthcare provider: Hospitalist Discharge Plan Dx/Rx/DC Orders Clinical Impression: Acute exacerbation of CHF (congestive heart failure), Hypoxia, CKD (chronic kidney disease), Chronic atrial fibrillation, Essential hypertension Disposition Disposition: Acute Care Hospital [facility]
[2025-05-19 07:42] LABS: Hematocrit 30.8 % (40-54); Hemoglobin 10.4 g/dL (13.0-16.5); Immature Granulocytes Count 0.030 X10^3/uL (0.0-0.0); Mean Corp Hgb Conc 33.8 g/dL (32-36); Mean Corpuscular Volume 102.3 fL (80-94); Mean Platelet Vol. 10.6 fl (6.2-12.0); NRBC Flagged by Analyzer 0 % (0-5); Platelet Count 112 K/mm3 (150-450); RBC Distribution Width CV 13.2 % (11.6-14.6); RBC Distribution Width SD 50.3 fl (35.1-43.9); Red Blood Count 3.01 M/mm3 (4.6-6.2); White Blood Count 9.4 K/mm3 (4.4-11.0)
[2025-05-19] MEDS: Heparin Injection (Vial) 5,000 UNIT/ML VIAL 5000 UNIT SC ×2 (09:15→20:53)
[2025-05-19] MEDS: Potassium Chloride Oral Tablet 20 MEQ PO (09:15)
--- NOTE | 2025-05-19 15:14 | CHAPLAIN ---
Type of Pastoral Visit _x__ Initial Visit ___ Follow-up Visit ___ On-call Visit ___ General Patient Visit ___ Spiritual Assessment ___ Family Conference ___ Bereavement ___ Rapid Response ___ Code Blue ___ Other (describe below) Pastoral Care Referral From _x__ Patient ___ Family ___ Nurse ___ Physician ___ Admissions Specialist ___ Container Finisher ___ Other (describe below) Sacrament/Intervention _x__ Active listening ___ Anointing ___ Anabaptism ___ Bereavement ___ Communion ___ Alicja exploration ___ ___ Life review ___ Prayer ___ Reconciliation ___ Sacrament of Sick _x__ Supportive presence ___ Wedding ___ Other (describe below) Pastoral Comments patient acknowledges his health concerns and treatments; pt speaks of his in the care home and how he is concerned for her mental state; pt says that his is fine in the ECF and is not worried about her care; pt states there is nothing that you can do when asked about how to help and to speak of his needs
--- NOTE | 2025-05-19 18:46 | PCM.HP.STD ---
HPI - General General Date of Admission: 05/19/25 Date of Service: 05/19/25 Chief Complaint: Shortness of breath HPI Narrative EULOGIO NOGUERA, is a 84 M who presents to the emergency room at [facility] with complaints of increased shortness of breath over the last 24 hours. Patient does not have home oxygen, he has a history of chronic atrial fibrillation and congestive heart failure with preserved ejection fraction, he was recently hospitalized here in March of this year and went to a [facility] facility for short-term rehab services, he has been out of the nursing facility approximately a week. Patient states that yesterday he began feeling short of breath, he did not call his physician, he awoke this morning and was having increased shortness of breath but no chest pain, he came to the ER for evaluation. Squad took a pulse ox before transport to the hospital, it was 70% on room air, he was placed on a nonrebreather and brought to the emergency room for evaluation. Labs obtained showed a normal white blood cell count, hemoglobin was 10.4, creatinine was elevated at 3.58 and BUN was 76. Patient's natruretic peptide was 25,621. Glucose was 161 and magnesium was 2.4. Chest x-ray was obtained and that showed evidence of pulmonary vascular congestion, there was evidence of passive atelectatic airspace disease of the lower lobes which was unchanged from previous x-ray done in March of this year, there is mild bilateral pleural effusions which were unchanged from previous chest x-ray. Patient was given IV Bumex in the emergency room, he will be admitted to PCU for acute exacerbation of chronic congestive heart failure with preserved ejection fraction with underlying chronic kidney disease stage IV. [facility] Medical History Kidney disease History of Holter monitoring H/O transesophageal echocardiography (ROSI) for monitoring Multiple excoriations Anemia Pulmonary hypertension Severe sinus bradycardia CKD (chronic kidney disease) stage 3, GFR 30-59 ml/min General weakness Debility Hyperkalemia Palpitations History of edema Elevated troponin Fever Mitral valve insufficiency PAD (peripheral artery disease) Pancytopenia History of right inguinal hernia History of umbilical hernia Wears hearing aid Wears glasses Alcohol use Thyroid disease Walker as ambulation aid High cholesterol Injury of head and neck Dietary restriction History of GI bleed Hx of ulcerative colitis History of stress test History of echocardiogram History of transesophageal echocardiography (ROSI) Cardiology follow-up encounter History of atrial fibrillation Emphysema of lung Hyperlipidemia Hypertension Atrial fibrillation Hypertension Former smoker History of cardioversion (~05/09/20) Subclavian artery stenosis, left (~10/15/19) Essential hypertension Thrombocytopenia Upper GI bleed Atherosclerotic heart disease of samish coronary artery without angina pectoris Premature atrial contractions Atrial fibrillation and flutter 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) use 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 Hematemesis/vomiting blood Upper GI bleed History of coronary artery disease Thrombocytopenia Ulcerative colitis Right carotid bruit Hypercholesterolemia Home Medications ?Medication ?Instructions ?Recorded ?Last Taken ?Type ferrous sulfate 325 mg (65 mg 325 mg PO DAILY vitamin 05/28/15 12/26/24 History iron) tablet vitamin B complex 1 each PO DAILY vitamin 02/07/16 12/26/24 History aspirin 81 mg tablet,delayed 81 mg PO MO Anticoagulation 04/14/23 12/20/24 History release zinc acetate 50 mg (zinc) capsule 50 mg PO DAILY Supplement 09/29/23 12/26/24 History hydralazine 50 mg tablet 100 mg (2 x 50 mg) PO BID #360 tabs 02/18/25 02/23/25 Rx amlodipine 10 mg tablet 10 mg PO DAILY #90 tabs 03/14/25 Unknown Rx acetaminophen 325 mg tablet 650 mg (2 x 325 mg) PO Q6H PRN PRN 05/03/25 Unknown Rx Pain 1-10 Or Fever>100.7 #0 tabs bumetanide 2 mg tablet 2 mg PO BID #60 tabs 05/03/25 Unknown Rx potassium chloride 20 mEq 20 meq PO DAILYCM #0 tabs 05/03/25 Unknown Rx tablet,extended release(part/cryst) Allergy/AdvReac Type Severity Reaction Status Date / Time hydrochlorothiazide Allergy Severe Rash Verified 03/03/25 11:46 furosemide (From Lasix) Allergy Severe Verified 03/03/25 11:46 Rash Itchy lovastatin (From Mevacor) Allergy Rash Verified 03/03/25 11:46 Family History Father CAD (coronary artery disease) Mother Cancer breast Surgical History History of coronary artery stent placement S/P umbilical hernia repair, follow-up exam S/P right inguinal hernia repair History of umbilical hernia repair History of right inguinal hernia repair Hx of colonoscopy History of cardiac catheterization Hx of heart bypass surgery Hx of esophagogastroduodenoscopy Hx of CABG History of hand surgery History of vasectomy Aortocoronary bypass status (~02/12/17) Status post insertion of drug-eluting stent into right coronary artery for coronary artery disease (~04/2009) Social History adopted: No household members: spouse housing: house number of children: 2 current occupational status: retired Smoking Status: Former smoker Tobacco: How many years used: 50 (stopped about 10 yrs ago) how long ago did patient quit smokin years ago alcohol intake: current alcohol intake frequency: 3 or more drinks per day Alcohol type: beer, wine and hard liquor substance use type: does not use caffeine: Yes Type: coffee Number of servings: 2 ROS Constitutional Constitutional: Reports fatigue; Denies anorexia, change in weight, chills, fever(s), night sweats or weakness Eyes Eyes: Denies blurry vision, change in eye color, change in vision, discharge from eye(s) or eye pain ENT HEENT: Denies dysphagia Cardiovascular Cardiovascular: Reports dyspnea on exertion; Denies chest pain, claudication, edema or palpitations Respiratory/Chest Respiratory/Chest: Reports dyspnea, shortness of breath at rest and shortness of breath with exertion; Denies cough or hemoptysis Gastrointestinal Gastrointestinal: Denies abdominal pain, constipation, diarrhea, hematemesis, hematochezia, melena, nausea or vomiting Genitourinary Genitourinary: Denies dysuria, hematuria, urinary frequency, urinary hesitancy, urinary incontinence or urinary urgency Musculoskeletal Musculoskeletal: Denies back pain, joint pain, joint stiffness, joint swelling, myalgias or neck pain Neurologic Neurologic: Denies abnormal gait, abnormal speech, confusion, dizziness, focal weakness, headache(s), loss of vision, numbness, other visual disturbances, paresthesias, syncope or tingling Psychiatric Psychiatric: Denies anxiety, cognitive impairment, depression, irritability, mood swings or suicidal ideation Endocrine Endocrinology: Denies change in body appearance, cold intolerance, excessive sweating, heat intolerance, polydipsia or polyuria Hematologic/Lymphatic Hematologic/Lymphatic: Denies none, anemia, easy bleeding, easy bruising or lymphadenopathy Allergic/Immunologic Allergic/Immunologic: Denies rhinitis, urticaria, eczemia or asthma Vital Signs Vital Signs Vital Signs: 05/19/25 05:20 05/19/25 08:57 05/19/25 08:58 Temperature 97.5 F L Temperature Source Oral Pulse Rate 98 72 Pulse Strength Normal (2+) Respiratory Rate 24 H 18 Respiratory Effort Respiratory Depth Respiratory Pattern Normal Blood Pressure 131/60 H Blood Pressure Mean 83 Blood Pressure Source Monitor Blood Pressure Position Semi-Fowlers Blood Pressure Location Left Arm Pulse Ox 92 Oxygen Delivery Method Nasal Cannula Oxygen Flow Rate (L/min) 4 05/19/25 08:59 05/19/25 09:15 05/19/25 09:50 Temperature Temperature Source Pulse Rate 72 Pulse Strength Respiratory Rate Respiratory Effort Normal Non-Labored Respiratory Depth Normal Respiratory Pattern Normal Blood Pressure Blood Pressure Mean Blood Pressure Source Blood Pressure Position Blood Pressure Location Pulse Ox 92 Oxygen Delivery Method Nasal Cannula Nasal Cannula Oxygen Flow Rate (L/min) 4 4 05/19/25 12:35 05/19/25 13:58 05/19/25 14:00 Temperature Temperature Source Pulse Rate Pulse Strength Respiratory Rate Respiratory Effort Normal Non-Labored Respiratory Depth Normal Respiratory Pattern Normal Blood Pressure Blood Pressure Mean Blood Pressure Source Blood Pressure Position Blood Pressure Location Pulse Ox 94 Oxygen Delivery Method Nasal Cannula Oxygen Flow Rate (L/min) 4 4 4 05/19/25 15:00 Temperature 97.6 F L Temperature Source Oral Pulse Rate 70 Pulse Strength Respiratory Rate 18 Respiratory Effort Respiratory Depth Respiratory Pattern Blood Pressure 111/72 Blood Pressure Mean 85 Blood Pressure Source Monitor Blood Pressure Position Sitting Blood Pressure Location Left Arm Pulse Ox 97 Oxygen Delivery Method Nasal Cannula Oxygen Flow Rate (L/min) 4 Weight Weight: 75.478 kg Body Mass Index (BMI) 23.8 Physical Exam Const alert, oriented x3 and no apparent distress General Appearance: cooperative, well kempt and well developed Orientation / Consciousness: awake, oriented to person, oriented to place and oriented to time HEENT normocephalic, head/scalp atraumatic and moist oral mucous membranes Eyes PERRL, EOMs intact bilaterally and conjunctivae normal Neck supple, no JVD, thyroid normal and no carotid bruits General: trachea midline Resp normal respiratory effort Resp Narrative: Decreased breath sounds are noted over the lower lungs Auscultation: Negative for rales, rhonchi or wheezes Cardio regular rate, regular rhythm, S1 normal heart sound, S2 normal heart sound, no murmurs, no rub and no gallops Cardio Narrative: Occasional extrasystolic beats were noted GI normal to inspection, nondistended, normoactive bowel sounds, soft to palpation, non-tender and non-distended Extremity Extremity Narrative: Mild bilateral pitting edema was noted over the lower legs bilaterally Skin no rashes or lesions noted General Skin Exam: no breakdown Neuro oriented x3, CN's II-XII intact bilaterally, moves all extremities, no focal motor deficits and no sensory deficits noted Sensorium / Orientation: awake and alert Speech: speech normal Psych affect normal Results Lab / Micro Data 05/19/25 04:50 05/20/25 06:28 Labs: Laboratory Results - last 24 hr 05/19/25 04:50: WBC 9.4, RBC 3.01 L, Hgb 10.4 L, Hct 30.8 L, MCV 102.3 H, MCH 34.6 H, MCHC 33.8, RDW Std Deviation 50.3 H, RDW Coeff of Chanel 13.2, Plt Count 112 L, MPV 10.6, Immature Gran % (Auto) 0.300, Neut % (Auto) 73.7 H, Lymph % (Auto) 14.8 L, [place] % (Auto) 8.6, Eos % (Auto) 2.2, Baso % (Auto) 0.4, Absolute Neuts (auto) 6.9, Absolute Lymphs (auto) 1.39, Nucleated RBC % 0, Sodium 140, Potassium 4.1, Chloride 102, Carbon Dioxide 20.9 L, Anion Gap 17 H, BUN 76 H, Creatinine 3.58 H, Est GFR (MDRD) Non-Af 16 L, BUN/Creatinine Ratio 21.1 H, Glucose 161 H, Calcium 8.9, Magnesium 2.4 H, [place] [address] H Micro: Microbiology 05/19/25 05:45 Mucosa - Nose SARS-CoV-2, Influenza & RSV (PCR) - Final Imaging Radiology Impression Chest X-Ray 05/19/25 06:06 IMPRESSION: Unremarkable median sternotomy wires. Unchanged mild bilateral pleural effusions. Unchanged passive atelectatic airspace disease of the lower lobes. Increased interstitial pulmonary congestion. Enlarged cardiac silhouette. Reading Location: [facility] Assessment & Plan Assessment/Plan (1) Acute exacerbation of CHF (congestive heart failure): PLAN: Plan 1. Acute on chronic congestive heart failure with preserved ejection fraction-patient will be admitted to PCU, IV Bumex will be administered, labs will be monitored #2 acute hypoxia secondary to #1-patient is currently on nasal cannula oxygen, pulse ox will be monitored, patient does not have oxygen set up at home #3 chronic kidney disease stage IV-complicates care, management, recovery, and prognosis #4 coronary artery disease-this appears stable at this time, patient will remain on his current medications #5 essential hypertension-patient's blood pressure will be monitored and medications will be adjusted as needed #6 paroxysmal atrial fibrillation-patient appears to be in sinus rhythm at this time, he is not on any anticoagulation #7 moderate pulmonary hypertension-again patient will be placed on IV Bumex and monitored Total clinical time spent by myself addressing the patient's medical issues, reviewing all of his data, and collaborating with patient's care team: 75-minute Charges/Coding Visit Charges Inpatient E&M: 01827 Init Hosp L3
[2025-05-20] VITALS (8 sets, daily range): BP systolic 117–141; BP diastolic 55–65; PULSE 67–80; RESP 18; TEMP 36.2–36.5; O2SAT 92–97; BMI 24.1
[2025-05-20] MEDS: 0.9% Saline Lock 10 ML Syringe IV ×3 (05:19→22:17)
[2025-05-20 07:27] LABS: Anion Gap 14 (5-15); BUN 86 mg/dL (4-19); BUN/Creat Ratio 24.3 RATIO (10-20); Calcium,Total 9.1 mg/dL (7.6-11.0); Carbon Dioxide 21.2 mmol/L (21.0-32.0); Chloride 102 mmol/L (98-108); Estimated Creatinine Clearance 16.37 ml/min (50-250); Glucose 149 mg/dL (70-99); Potassium 4.8 mmol/L (3.3-5.1)
[2025-05-20] MEDS: Potassium Chloride Oral Tablet 20 MEQ PO (08:32)
[2025-05-20] MEDS: Heparin Injection (Vial) 5,000 UNIT/ML VIAL 5000 UNIT SC ×2 (08:33→21:32)
--- NOTE | 2025-05-20 17:47 | CASEMGMT ---
RN CM meet with patient, see readmission intervention. Patient to discharge home, denies needs or HHC or outpatient therapy. Will monitor for home oxygen, prefers [employer]. Green sheet placed on chart.
--- NOTE | 2025-05-20 18:41 | PN.HOSP_ITS ---
Reason for Visit Chief Complaint: Shortness of breath Subjective Subjective Patient was seen and examined today, earlier in the day he was on nasal cannula oxygen, now he appears to be on room air at rest. Patient states that he was short of breath while he was walking with physical therapy today, not so much at rest however. Objective Data Objective Data Vital Signs: Vital Signs Temp Pulse Resp BP Pulse Ox O2 Del Method O2 Flow Rate 97.3 F L 80 18 141/64 H 93 Room Air 2 05/20/25 14:25 05/20/25 14:25 05/20/25 14:25 05/20/25 14:25 05/20/25 14:30 05/20/25 14:30 05/20/25 14:25 Oxygen Flow Rate (L/min) 2 Oxygen Delivery Method Room Air Weight: 76.4 kg Body Mass Index (BMI) 24.1 Intake & Output: Intake and Output for Last 24 Hours 05/18/25 05/19/25 05/20/25 23:59 23:59 23:59 Intake Total 320 / 320 420 / 420 Output Total 600 / 950 1275 / 1275 Balance -280 / -630 -855 / -855 Lab / Micro Data 05/21/25 13:15 05/20/25 06:28 Labs: Laboratory Results - last 24 hr 05/20/25 06:28: Sodium 138, Potassium 4.8, Chloride 102, Carbon Dioxide 21.2, Anion Gap 14, BUN 86 H, Creatinine 3.53 H, Estim Creat Clear Calc 16.37 L, Est GFR (MDRD) Non-Af 16 L, BUN/Creatinine Ratio 24.3 H, Glucose 149 H, Calcium 9.1 Micro: Microbiology 05/19/25 05:45 Mucosa - Nose SARS-CoV-2, Influenza & RSV (PCR) - Final Physical Exam Narrative alert, oriented x3 and no apparent distress General Appearance: cooperative, well kempt and well developed Orientation / Consciousness: awake, oriented to person, oriented to place and oriented to time HEENT normocephalic, head/scalp atraumatic and moist oral mucous membranes Eyes PERRL, EOMs intact bilaterally and conjunctivae normal Neck supple, no JVD, thyroid normal and no carotid bruits General: trachea midline Resp normal respiratory effort Resp Narrative: Decreased breath sounds are noted over the lower lungs Auscultation: Negative for rales, rhonchi or wheezes Cardio regular rate, regular rhythm, S1 normal heart sound, S2 normal heart sound, no murmurs, no rub and no gallops Cardio Narrative: Occasional extrasystolic beats were noted GI normal to inspection, nondistended, normoactive bowel sounds, soft to palpation, non-tender and non-distended Extremity Extremity Narrative: Mild bilateral pitting edema was noted over the lower legs bilaterally Skin no rashes or lesions noted General Skin Exam: no breakdown Neuro oriented x3, CN's II-XII intact bilaterally, moves all extremities, no focal motor deficits and no sensory deficits noted Sensorium / Orientation: awake and alert Speech: speech normal Psych affect normal Assessment & Plan Assessment/Plan (1) Acute exacerbation of CHF (congestive heart failure): PLAN: Plan 1. Acute on chronic congestive heart failure with preserved ejection fraction- patient will be admitted to PCU, IV Bumex will be continued, labs will be monitored #2 acute hypoxia secondary to #1-patient is currently on room air at this time, pulse ox will be monitored #3 chronic kidney disease stage IV-complicates care, management, recovery, and prognosis #4 coronary artery disease-this appears stable at this time, patient will remain on his current medications #5 essential hypertension-patient's blood pressure will be monitored and medications will be adjusted as needed #6 paroxysmal atrial fibrillation-patient appears to be in sinus rhythm at this time, he is not on any anticoagulation #7 moderate pulmonary hypertension-again patient will be placed on IV Bumex and monitored Total clinical time spent by myself addressing the patient's medical issues, reviewing all of his data, and collaborating with patient's care team: 35-minute Charges/Coding Visit Charges Inpatient E&M: 88209 Subs Hosp L2
[2025-05-21] VITALS (17 sets, daily range): BP systolic 126–149; BP diastolic 55–80; PULSE 64–99; RESP 15–26; TEMP 36.4–36.8; O2SAT 86–98; BMI 24.6
--- NOTE | 2025-05-21 01:43 | RAD_ITS ---
PROCEDURE: CHEST 1 VIEW (UPRIGHT PORTABLE) 05/21/2025 REASON FOR EXAM: INCREASED O2 DEMANDS, INCREASED WORK OF BREATHING. TECHNIQUE: Frontal view of the chest. FINDINGS: Hardware: There are sternotomy wires and there are precordial chest leads. Heart: There is moderate to marked cardiomegaly. Lungs: The lung volumes are slightly shallow. THERE MAY BE CONSOLIDATION OR ATELECTASIS AT THE POSTEROMEDIAL LEFT LUNG BASE. There is subsegmental consolidation at the inferior aspect of the right anterior pulmonary segment. There is a small subsegmental alveolar infiltrate at the superior medial aspect of the right lung base. The right lung base consolidation at the right lung base is smaller than it was on the 05-19-2025 chest radiograph. Bones: The bones are unremarkable. Other: There is cephalization of pulmonary vasculature bilaterally which is consistent with pulmonary venous congestion. There is moderate calcification of the aortic arch. The heart is slightly smaller than on the 05-19-2025 upright AP portable chest radiograph. RAD/Chest 1 View (Portable) IMPRESSION: IMPRESSION CARDIOMEGALY AND CEPHALIZATION OF PULMONARY VEINS. RIGHT ANTERIOR LOBE SUBSEGMENTAL ATELECTASIS, INFERIORLY. Reading Location: [id number]
[2025-05-21 01:55] LABS: Allen Test Positive; Base Excess -1 mmol/L (-2 to +2); FI02 6.0; PO2 59 mmHG (75-100); SITE L Radial; SO2 90 % (94-98)
--- NOTE | 2025-05-21 02:49 | PCM.HOSP.N ---
Hospitalist Note Called due to patient's oxygen demand increasing as well as work of breathing. He was on 3 L and now up to 6 L heated high flow. ABG was obtained and is consistent with some mild hypoxia but patient is not retaining. Chest x-ray actually looks improved he does have evidence of plate atelectasis in the right fissure. Patient is already being diuresed. Previous history of tobacco abuse so we will order as needed albuterol and scheduled DuoNebs every 6 hours while awake. Echo from 04/28/2025 reviewed and EF is normal 55% but patient has fairly severe stage III diastolic dysfunction with wall motion abnormality. Given worsening respiratory status we will get limited echo to ensure no change. Patient is noted to have moderate pulmonary hypertension on echo as well.
--- NOTE | 2025-05-21 02:52 | ECHOL_ITS ---
Reason For Study Reason For Study: CHF Procedure This was a limited 2D transthoracic echocardiogram. The study was technically difficult. D/T BODY HABITUS. Exam performed in department. Left Ventricle Normal left ventricle. Left ventricular systolic function is normal. No regional wall motion abnormalities noted. Right Ventricle Normal systolic function. Atria There is moderate biatrial dilatation. There is a 2CM mobile hyperechoic mass on the posterior mitral valve leaflet most likely consistent with thrombus but cannot exclude vegetation. Not seen on prior study date 04/26/2025. Mitral Valve Moderate mitral annular calcification. There is a 2CM mobile hyperechoic mass on the posterior mitral valve leaflet most likely consistent with thrombus but cannot exclude vegetation. Not seen on prior study date 04/26/2025. Mild-Moderate (1-2+) mitral valve insufficiency. Tricuspid Valve Normal tricuspid valve. Aortic Valve Normal aortic valve. Pulmonic Valve The pulmonic valve is not well visualized. Great Vessels Normal sized aortic root. Pericardium/Pleural No pericardial effusion. MMode/2D Measurements & Calculations LVIDd: 4.5 cm IVSd: 1.8 cm Ao root diam: 2.9 cm LVIDs: 3.4 cm LVPWd: 1.5 cm RVDd: 3.4 cm FS: 23.7 % LAV(MOD-bp): 127.4 ml LVAd ap4: 32.3 cm2 SV(MOD-sp4): 70.4 ml LAV(MOD-bp) Indexed: 65.7 ml/m2 LVLd ap4: 8.1 cm SI(MOD-sp4): 36.3 ml/m2 LAV(MOD-sp2): 123.4 ml EDV(MOD-sp4): 111.4 ml LAV(MOD-sp4): 116.9 ml EDV(sp4-el): 109.9 ml LVAs ap4: 17.9 cm2 LVLs ap4: 7.0 cm ESV(MOD-sp4): 41.1 ml ESV(sp4-el): 38.8 ml EF(MOD-sp4): 63.1 % EF(sp4-el): 64.7 % SV(sp4-el): 71.1 ml LA A4 area: 33.5 cm2 LA dimension(2D): 5.8 cm RA A4 area: 22.2 cm2 ECHO/Echo, Limited Study Interpretation Summary There is a 2CM mobile hyperechoic mass on the posterior mitral valve leaflet mo st likely consistent with thrombus but cannot exclude vegetation. Not seen on prior study date 04/26/2025 There is moderate biatrial dilatation. Left ventricular systolic function is normal. Ordering Physician: Felicita Sarabia Referring Physician: Jakob Jiménez Performed By: Comfort Fuentes RDCS, RVT
[2025-05-21] MEDS: 0.9% Saline Lock 10 ML Syringe IV ×2 (06:32→13:24)
[2025-05-21] MEDS: Potassium Chloride Oral Tablet 20 MEQ PO (09:50)
[2025-05-21] MEDS: Heparin Injection (Vial) 5,000 UNIT/ML VIAL 5000 UNIT SC (09:51)
--- NOTE | 2025-05-21 11:55 | CASEMGMT ---
Charge nurse informed RN CM that Pt needing to be transferred out, Pt has MCR for primary insurance - informed Charge nurse and hospitalist Pt is able to transfer to any tertiary facility.
[2025-05-21 13:28] LABS: Hematocrit 29.8 % (40-54); Hemoglobin 9.5 g/dL (13.0-16.5); Immature Granulocytes Count 0.040 X10^3/uL (0.0-0.0); Mean Corp Hgb Conc 31.9 g/dL (32-36); Mean Corpuscular Volume 104.6 fL (80-94); Mean Platelet Vol. 10.8 fl (6.2-12.0); NRBC Flagged by Analyzer 0 % (0-5); POSITIVE DIFFERENTIAL YES; Platelet Count 102 K/mm3 (150-450); RBC Distribution Width CV 13.8 % (11.6-14.6); RBC Distribution Width SD 53.2 fl (35.1-43.9); Red Blood Count 2.85 M/mm3 (4.6-6.2); White Blood Count 7.8 K/mm3 (4.4-11.0)
[2025-05-21 13:37] LABS: Prothrombin Time (Protime)PT. 13.7 SECONDS (11.7-14.9)
[2025-05-21 13:38] LABS: Partial Thromboplast Time 33.8 Seconds (24.1-36.2)
[2025-05-21] MEDS: Heparin Injection (Vial) 5,000 UNIT/ML VIAL 4500 UNIT IV (13:52)
[2025-05-21] MEDS: HEPARIN/D5w 25,000 UNITS 25,000 UNITS/250 ML IV.SOLN. 9.3 UNITS CONT INF (13:57)
--- NOTE | 2025-05-21 18:35 | PCM.PN.HOSP ---
Reason for Visit Chief Complaint: Shortness of breath Subjective Subjective Patient was seen and examined today, he became more hypoxic last night and had to be placed back on oxygen. An echocardiogram was ordered for today to further work the patient up, it was noted that there appeared to be either a vegetation or thrombus on the patient's mitral valve, I was contacted by cardiology and advised that the patient should be fully anticoagulated on heparin and that he should be transferred to another facility in case he has to have intervention. Patient agreed to go to [facility] and at the time of this dictation, a bed was confirmed for the patient and he will be transferred tonight. I went over this medical plan with the patient and he is aware that he has to go to a tertiary facility. Objective Data Objective Data Vital Signs: Vital Signs Temp Pulse Resp BP Pulse Ox O2 Del Method O2 Flow Rate 98.3 F 91 19 H 140/64 H 94 Nasal Cannula 3 05/21/25 15:39 05/21/25 15:39 05/21/25 15:39 05/21/25 15:39 05/21/25 15:39 05/21/25 15:42 05/21/25 15:42 Oxygen Flow Rate (L/min) 3 Oxygen Delivery Method Nasal Cannula Weight: 77.9 kg Body Mass Index (BMI) 24.6 Intake & Output: Intake and Output for Last 24 Hours 05/19/25 05/20/25 05/21/25 23:59 23:59 23:59 Intake Total 320 / 320 420 / 420 740 / 740 Output Total 600 / 950 1275 / 2125 2220 / 2220 Balance -280 / -630 -855 / -1705 -1480 / -1480 Lab / Micro Data 05/21/25 13:15 05/20/25 06:28 Labs: Laboratory Results - last 24 hr 05/21/25 13:15: WBC 7.8, RBC 2.85 L, Hgb 9.5 L, Hct 29.8 L, MCV 104.6 H, MCH 33.3 H, MCHC 31.9 L D, RDW Std Deviation 53.2 H, RDW Coeff of Chanel 13.8, Plt Count 102 L, MPV 10.8, Immature Gran % (Auto) 0.500, Neut % (Auto) 89.0 H, Lymph % (Auto) 4.6 L, [place] % (Auto) 5.5, Eos % (Auto) 0.3, Baso % (Auto) 0.1, Absolute Neuts (auto) 6.9, Absolute Lymphs (auto) 0.36 L, Nucleated RBC % 0, PT 13.7, INR 1.0, APTT 33.8 Micro: Microbiology 05/21/25 03:32 Mucosa - Nasopharyngeal Respiratory Panel (PCR) - Final 05/19/25 05:45 Mucosa - Nose SARS-CoV-2, Influenza & RSV (PCR) - Final ABG Data ABG results: ABG 05/21/25 01:50 Specimen Type ART Sample Site L Radial pH 7.40 Bicarbonate Actual 23.3 Total CO2 25 Base Excess -1 O2 Saturation 90 L O2 % 6.0 ABG pCO2 37.3 ABG pO2 59 L Britton Test Positive O2 Delivery Device Cannula Vent Mode Not entered Radiography Diagnostic Testing: Radiology Impression Chest X-Ray 05/21/25 01:43 IMPRESSION: IMPRESSION CARDIOMEGALY AND CEPHALIZATION OF PULMONARY VEINS. RIGHT ANTERIOR LOBE SUBSEGMENTAL ATELECTASIS, INFERIORLY. Reading Location: [facility] Echocardiogram 05/21/25 02:52 Interpretation Summary There is a 2CM mobile hyperechoic mass on the posterior mitral valve leaflet most likely consistent with thrombus but cannot exclude vegetation. Not seen on prior study date 04/26/2025 There is moderate biatrial dilatation. Left ventricular systolic function is normal. Ordering Physician: Felicita Sarabia Referring Physician: Jakob Jiménez Performed By: Comfort Fuentes, KRISTEN, RVT Physical Exam Narrative alert, oriented x3 and no apparent distress General Appearance: cooperative, well kempt and well developed Orientation / Consciousness: awake, oriented to person, oriented to place and oriented to time HEENT normocephalic, head/scalp atraumatic and moist oral mucous membranes Eyes PERRL, EOMs intact bilaterally and conjunctivae normal Neck supple, no JVD, thyroid normal and no carotid bruits General: trachea midline Resp normal respiratory effort Resp Narrative: Decreased breath sounds are noted over the lower lungs Auscultation: Negative for rales, rhonchi or wheezes Cardio regular rate, regular rhythm, S1 normal heart sound, S2 normal heart sound, no murmurs, no rub and no gallops Cardio Narrative: Occasional extrasystolic beats were noted GI normal to inspection, nondistended, normoactive bowel sounds, soft to palpation, non-tender and non-distended Extremity Extremity Narrative: Mild bilateral pitting edema was noted over the lower legs bilaterally Skin no rashes or lesions noted General Skin Exam: no breakdown Neuro oriented x3, CN's II-XII intact bilaterally, moves all extremities, no focal motor deficits and no sensory deficits noted Sensorium / Orientation: awake and alert Speech: speech normal Psych affect normal Assessment & Plan Assessment/Plan (1) Acute exacerbation of CHF (congestive heart failure): PLAN: Plan 1. Acute on chronic congestive heart failure with preserved ejection fraction-patient will be admitted to PCU, IV Bumex will be continued, labs will be monitored #2 acute hypoxia secondary to #1-patient is currently on oxygen again #3 chronic kidney disease stage IV-complicates care, management, recovery, and prognosis #4 coronary artery disease-this appears stable at this time, patient will remain on his current medications #5 essential hypertension-patient's blood pressure will be monitored and medications will be adjusted as needed #6 paroxysmal atrial fibrillation-patient appears to be in sinus rhythm at this time, he is not on any anticoagulation #7 moderate pulmonary hypertension-again patient will be placed on IV Bumex and monitored #8 mitral valve thrombus-I feel that most likely the mass on the mitral valve is a thrombus rather than a vegetation, again this was not seen on the patient's prior echocardiogram dated 04/26/2025-patient has no signs of infection at this time, IV heparin was started and the patient will be transferred to [facility] tonight Total clinical time spent by myself addressing the patient's medical issues, reviewing all of his data, and collaborating with patient's care team: 35-minute
--- NOTE | 2025-05-21 18:40 | PCM.DC.SUM ---
Providers Date of Admission: 05/19/25 Date of Discharge: 05/21/25 Primary Care Physician: Dr. Jakob Jiménez MD Reason For Visit: ACUTE ON CHRONIC CHF Diagnosis Discharge Diagnosis (1) Acute exacerbation of CHF (congestive heart failure): Status: Chronic Code(s): I50.9 - Heart failure, unspecified Plan 1. Acute on chronic congestive heart failure with preserved ejection fraction-patient will be admitted to PCU, IV Bumex will be continued, labs will be monitored #2 acute hypoxia secondary to #1-patient is currently on oxygen again #3 chronic kidney disease stage IV-complicates care, management, recovery, and prognosis #4 coronary artery disease-this appears stable at this time, patient will remain on his current medications #5 essential hypertension-patient's blood pressure will be monitored and medications will be adjusted as needed #6 paroxysmal atrial fibrillation-patient appears to be in sinus rhythm at this time, he is not on any anticoagulation #7 moderate pulmonary hypertension-again patient will be placed on IV Bumex and monitored #8 mitral valve thrombus-I feel that most likely the mass on the mitral valve is a thrombus rather than a vegetation, again this was not seen on the patient's prior echocardiogram dated 04/26/2025-patient has no signs of infection at this time, IV heparin was started and the patient will be transferred to [facility] tonight Total clinical time spent by myself addressing the patient's medical issues, reviewing all of his data, and collaborating with patient's care team: 35-minute Medications at Discharge Home Medications ferrous sulfate 325 mg (65 mg iron) tablet 325 mg PO DAILY vitamin 05/28/15 vitamin B complex 1 each PO DAILY vitamin 02/07/16 aspirin 81 mg tablet,delayed release 81 mg PO MO Anticoagulation 04/14/23 zinc acetate 50 mg (zinc) capsule 50 mg PO DAILY Supplement 09/29/23 hydralazine 50 mg tablet 100 mg (2 x 50 mg) PO BID #360 tabs 02/18/25 amlodipine 10 mg tablet 10 mg PO DAILY #90 tabs 03/14/25 acetaminophen 325 mg tablet 650 mg (2 x 325 mg) PO Q6H PRN PRN Pain 1-10 Or Fever>100.7 #0 tabs 05/03/25 bumetanide 2 mg tablet 2 mg PO BID #60 tabs 11/04/25 potassium chloride 20 mEq tablet,extended release(part/cryst) 20 meq PO DAILYCM #0 tabs 05/03/25 Hospital Course Operations None Procedures 2-D Echocardiogram Summary of Care Provided Minutes Spent on Discharge: 31 Hospital Course: This 84-year-old white male was seen in the emergency room at [facility] with complaints of increased shortness of breath over 24 hours prior. Patient does not have home oxygen. Patient denied any chest pain, he denied any purulent sputum production. When the squad arrived to take the patient to the emergency room, his pulse ox was 70% on room air and he was placed on a nonrebreather. Labs obtained in the ER showed normal white blood cell count, hemoglobin was 10.4 and creatinine was elevated at 3.58 and BUN was 76. Patient's beta natruretic peptide was elevated at 25,621. Chest x-ray was obtained and showed evidence of pulmonary vascular congestion. Patient was given IV Bumex in the emergency room and he was admitted to PCU for acute exacerbation of chronic congestive heart failure with preserved ejection fraction and underlying chronic kidney disease stage IV. The next day the patient was evaluated and that day he was weaned off oxygen and was comfortable on room air. Early the next morning however, patient became more short of breath and he was placed back on supplemental oxygen at 6 L. Chest x-ray was obtained which showed improving vascular congestion. Echocardiogram was obtained the next day and that showed what appeared to be a thrombus on the mitral valve, there was contacted by cardiology about this finding and advised that the patient should be transferred to a tertiary facility, patient requested [facility] and there was a short delay of transferring the patient there for further care. Patient was placed on IV heparin. On 05/21/2025, patient was seen and examined:alert, oriented x3 and no apparent distress General Appearance: cooperative, well kempt and well developed Orientation / Consciousness: awake, oriented to person, oriented to place and oriented to time HEENT normocephalic, head/scalp atraumatic and moist oral mucous membranes Eyes PERRL, EOMs intact bilaterally and conjunctivae normal Neck supple, no JVD, thyroid normal and no carotid bruits General: trachea midline Resp normal respiratory effort Resp Narrative: Decreased breath sounds are noted over the lower lungs Auscultation: Negative for rales, rhonchi or wheezes Cardio regular rate, regular rhythm, S1 normal heart sound, S2 normal heart sound, no murmurs, no rub and no gallops Cardio Narrative: Occasional extrasystolic beats were noted GI normal to inspection, nondistended, normoactive bowel sounds, soft to palpation, non-tender and non-distended Extremity Extremity Narrative: Mild bilateral pitting edema was noted over the lower legs bilaterally Skin no rashes or lesions noted General Skin Exam: no breakdown Neuro oriented x3, CN's II-XII intact bilaterally, moves all extremities, no focal motor deficits and no sensory deficits noted Sensorium / Orientation: awake and alert Speech: speech normal Psych affect normal Patient was transferred to [facility] in stable condition for further care on 05/21/2025. Weight / BMI Weight Weight: 77.9 kg Body Mass Index (BMI) 24.6 ABG / Lab / Microbiology Data 05/21/25 13:15 05/20/25 06:28 Laboratory: Laboratory Results - last 24 hr 05/21/25 13:15: WBC 7.8, RBC 2.85 L, Hgb 9.5 L, Hct 29.8 L, MCV 104.6 H, MCH 33.3 H, MCHC 31.9 L D, RDW Std Deviation 53.2 H, RDW Coeff of Chanel 13.8, Plt Count 102 L, MPV 10.8, Immature Gran % (Auto) 0.500, Neut % (Auto) 89.0 H, Lymph % (Auto) 4.6 L, Gregory % (Auto) 5.5, Eos % (Auto) 0.3, Baso % (Auto) 0.1, Absolute Neuts (auto) 6.9, Absolute Lymphs (auto) 0.36 L, Nucleated RBC % 0, PT 13.7, INR 1.0, APTT 33.8 Microbiology: Microbiology 05/21/25 03:32 Mucosa - Nasopharyngeal Respiratory Panel (PCR) - Final 05/19/25 05:45 Mucosa - Nose SARS-CoV-2, Influenza & RSV (PCR) - Final ABG: ABG 05/21/25 01:50 Specimen Type ART Sample Site L Radial pH 7.40 Bicarbonate Actual 23.3 Total CO2 25 Base Excess -1 O2 Saturation 90 L O2 % 6.0 ABG pCO2 37.3 ABG pO2 59 L Britton Test Positive O2 Delivery Device Cannula Vent Mode Not entered Radiography Diagnostic Testing: Radiology Impression Chest X-Ray 05/21/25 01:43 IMPRESSION: IMPRESSION CARDIOMEGALY AND CEPHALIZATION OF PULMONARY VEINS. RIGHT ANTERIOR LOBE SUBSEGMENTAL ATELECTASIS, INFERIORLY. Reading Location: [id number] Echocardiogram 05/21/25 02:52 Interpretation Summary There is a 2CM mobile hyperechoic mass on the posterior mitral valve leaflet most likely consistent with thrombus but cannot exclude vegetation. Not seen on prior study date 04/26/2025 There is moderate biatrial dilatation. Left ventricular systolic function is normal. Ordering Physician: Felicita Sarabia Referring Physician: Jakob Jiménez Performed By: Comfort Fuentes RDCS, RVT D/C Instructions DC O2, CPAP, BIPAP Needs Home O2 Discharge instructions: No Meaningful Use Info Meaningful Use Meaningful Use Diagnoses (Choose all that apply): CHF CHF STARR/ARB ordered at discharge?: No Reason STARR/ARB not ordered?: Worsening renal disease Documented LVEF (%): 55 Discharge Plan Admission Admit Date/Time: 05/19/25 07:49 Attending Provider: Armand Seymour Primary Care Provider: Jakob Jiménez Discharge Orders/Prescriptions Prescriptions: No Action aspirin 81 mg tablet,delayed release (DR/EC) 81 mg PO MO zinc acetate 50 mg (zinc) capsule 50 mg PO DAILY ferrous sulfate 325 MG tablet 325 mg PO DAILY Patient Comments: Iron supplement vitamin B complex 1 EACH capsule 1 each PO DAILY Patient Comments: Vitamin supplement acetaminophen 325 mg Tablet 650 mg PO Q6H PRN PRN (Reason: Pain 1-10 Or Fever>100.7) Qty: 0 0RF bumetanide 2 mg tablet 2 mg PO BID Qty: 60 0RF potassium chloride 20 mEq Tablet,Er Particles/Crystals 20 meq PO DAILYCM Qty: 0 0RF hydralazine 50 mg tablet 100 mg PO BID Qty: 360 3RF amlodipine 10 mg tablet 10 mg PO DAILY Qty: 90 3RF Referrals / Follow Up: Jakob Jiménez MD [Primary Care Provider, Family Practice] Disposition Disposition (needs filled in before D/C Order can be placed): Acute Care Hospital Charges/Coding Visit Charges Inpatient E&M: 25872 Disch Hosp >30min
--- NOTE | 2025-05-21 18:52 | NURSING ---
Patient's Son, James, notified of patient getting a bed at [facility] room 7048 and phone number [phone]. Patient's son also notified that transport will be here in about half an hour. James will notify his brother Obed.
--- NOTE | 2025-05-21 19:26 | NURSING ---
Report called to Tanya VIRGEN at [facility] 7th floor
--- NOTE | 2025-05-21 20:15 | NURSING ---
called [facility] and let floor nurse know that pt has left and we had to cancel his appt draw and that another one will need to be drawn upon arrival to facility.
== END 2025-05-21 20:02 | disposition short-term general hospital (02) | DRG 291 ==
LOC: ED 08:02 → PCU 09:28
PROVIDERS: Admitting Provider Internal Medicine; Emergency Provider Emergency Medicine; PCP Family Medicine; Visit Provider Internal Medicine
DX: I13.0 Hypertensive heart and chronic kidney disease with heart failure and stage 1 through stage 4 chronic kidney disease, or unspecified chronic kidney disease (principal); I50.33 Acute on chronic diastolic (congestive) heart failure; N18.4 Chronic kidney disease, stage 4 (severe); K51.90 Ulcerative colitis, unspecified, without complications; J98.11 Atelectasis; I27.20 Pulmonary hypertension, unspecified; I73.9 Peripheral vascular disease, unspecified; I34.89 Other nonrheumatic mitral valve disorders; D64.9 Anemia, unspecified; I48.0 Paroxysmal atrial fibrillation; E78.00 Pure hypercholesterolemia, unspecified; I25.10 Atherosclerotic heart disease of native coronary artery without angina pectoris; R09.02 Hypoxemia; R53.81 Other malaise; Z95.1 Presence of aortocoronary bypass graft; Z87.19 Personal history of other diseases of the digestive system; Z79.82 Long term (current) use of aspirin; Z79.899 Other long term (current) drug therapy; Z87.891 Personal history of nicotine dependence
CPT/HCPCS: 36415; 36600; 71045; 80048; 82803; 83735; 83880; 85025; 85610; 85730; 87631; 87633; 93005; 93308; 94640; 96374; 96375; 97116; 97162; 97166; 97530; 97535; 99285; Q9957; A4216

== ENCOUNTER 2025-06-05 00:36 | Emergency (ER) | payer MEDICARE, OTHER, SELFPAY ==
[2025-06-05 00:38] VITALS: BP 126/58; PULSE 59; RESP 14; TEMP 36.6; O2SAT 97; BMI 22.4
--- NOTE | 2025-06-05 00:52 | CT_ITS ---
PROCEDURE: BRAIN/HEAD WITHOUT CONTRAST 06/05/2025 REASON FOR EXAM: FALL TECHNIQUE: Procedure Code: CTBR Modality: CT Procedure: BRAIN/HEAD WITHOUT CONTRAST Coronal and Sagittal reconstruction series were provided. One or more dose reduction techniques were used (e.g., Automated exposure control, adjustment of the mA and/or kV according to patient size, use of iterative reconstruction technique. RADIATION DOSE SUMMARY: CTDlvol: 44.99 mGy DLP: 846.73 mGycm COMPARISON: 01.03.2023 FINDINGS: No acute intracranial abnormality is present. No evidence of acute cortical infarction, hemorrhage, mass or mass effect. No abnormal extra-axial fluid collections are present. Dilated ventricular system is again seen. 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 The posterior fossa is unremarkable. The skull base and calvarium are intact. Minimal bilateral maxillary sinusitis seen. The included portions of the mastoid air cells are clear. CT/Brain/Head without Contrast IMPRESSION: No acute intracranial abnormality is present. Redemonstration of the chronic periventricular white matter ischemia and diffus e cerebral involutional changes. Reading Location: [place] [id number]
--- OUTSIDE RECORDS SUMMARY | 2025-06-05 00:56 | XMS RPT_ITS | CCD ---
Author Organization [facility] CliniSyms Care Team Providers Care Data Collection Specialist Name Role Phone Unavailable Primary Care Provider Unavailabl e Dr. Rosa Maria Santacruz Primary Care Provider Dr. Rosa Maria Santacruz Referring Provider Dr. Mathieu Mcintyre Attending Provider 1([facility])[phone] Rosa Maria Santacruz Primary Care Provider Dr. Rosa Maria Santacruz Referring Provider 1([facility])[phone] JUAN J Elizondo Attending Provider Dr. Rosa Maria Santacruz Primary Care Provider Dr. Rosa Maria Santacruz Referring Provider JUAN J Elizondo Attending Provider Dr. Lupe Joe Emergency Provider 1([facility])[phone] Jakob Alexander Admit Provider Dr. Jakob Alexander Attending Provider 1([facility])[phone] Jakob Alexander Other Provider Dr. Odette Harman Attending Provider 1([facility])[phone] Sammie Castaneda Attending Provider Dr. Sammie Castaneda Other Provider Dr. Kvng James Other Provider 1([facility])[phone] Dr. Jesu Hale Chi Admit Provider Dr. Jesu Hale Chi Other Provider Dr. Socorro Oliveros Other Provider Friend, Dr. Villatoro Attending Provider 1([facility])[phone] Dr. Rosa Maria Santacruz Primary Care Provider [...] Primary Care Unavailable AZUCENA VO Attending Unavailable [facility] Referring Un available Dr. Jesu Hale Chi Referring Provider Friend, Dr. Villatoro Referring Provider [phone] Mina BURN OUT TENDER LACE, BURN OUT TENDER LACE-C Honey Attending Provider Dr. Paco Castillo Primary Care Provider Dr. Paco Norman Attending Provider Julian BURN OUT TENDER LACE, BURN OUT TENDER LACE-C Karey Attending Provider Dr. Rosa Maria Santacruz Primary Care Provider Dr. Rosa Maria Santacruz Referring Provider Mina BURN OUT TENDER LACE, BURN OUT TENDER LACE-C Honey Attending Provider [place] Dr. Paco Membreno Referring Provider [phone] Francisco Javier, Dr. Murdock Attending Provider Dr. Rosa Maria Santacruz Referring Provider Julian BURN OUT TENDER LACE, BURN OUT TENDER LACE-C Karey Attending Provider Dr. Paco Norman Primary [...] Dr. Hooper Other Provider Unavailab cole Menendez BURN OUT TENDER LACE, BURN OUT TENDER LACE-C Tierney Other Provider Dr. William Dawson Attending Provider 1([facility])[phone] Friend, Dr. Villatoro Attending Provider 1([facility])[phone] Dr. Robby Lai Attending Provider 1([facility])[phone] PHYSICIAN, NONE Attending Unavailable PHYSICIAN, NONE Primary Care Unavailable Dr. Priya Sheehan Referring Provider 1([facility])[phone] Dr. Paco Norman Referring Provider 1([facility])[phone] Dr. Mathieu Mcintyre Attending Provider 1([facility])[phone] Rosa Maria Santacruz S Primary Care Provider 1([facility])[phone] Dr. Jakob Lim Attending Provider 1([facility])[phone] JUAN J Walden Referring Provider 1([facility])[phone] JUAN J Walden Attending Provider 1([facility])[phone] Rosa Maria Santacruz Referring Provider 1([facility])[phone] Dr. Jakob Nowak Emergency Provider 1([facility])[phone] Dr. Oniel Moulton Admit Provider 1([facility])[phone] Oniel Moulton Attending Provider Dr. Oniel Moulton Other Provider 1([facility])[phone] Lakshmi Carpenter Other Provider Dr. Kvng James Other Provider 1([facility])[phone] Dr. Lakshmi Carpenter Attending Provider 1([facility])[phone] Korcrissy, Dr. Priya Bowen Attending Provider Dr. Priya Sheehan Other Provider Dr. William Dawson Other Provider Dr. Robby Lai Other Provider Dr. Daniel Jimenez Other Provider Unavailable Dr. Rufus Bruner Other Provider Unavailab Floyd BURN OUT TENDER LACE, BURN OUT TENDER LACE-C Tierney Other Provider Dr. Priya Sheehan Referring Provider Dr. William Dawson Attending Provider Carlos Manuel, Dr. Villatoro Attending Provider Dr. Robby Lai Attending Provider 1([facility])[phone] Mathieu Mcintyre Attending Provider Dr. Odette Harman Attending Provider Kimani, Dr. Pino Referring Provider Dr. Rosa Maria Santacruz Primary Care Provider Dr. Rosa Maria Santacruz Referring Provider Dr. Mathieu Mcintyre Attending Provider Carlos Manuel, Dr. Villatoro Attending Provider Julian BURN OUT TENDER LACE, BURN OUT TENDER LACE-C Karey Attending Provider Neeta WATSON, Dr. Rosa Maria Iverson Primary Care Provider Neeta WATSON, Dr. Rosa Maria Iverson Attending Provider Dr. Rosa Maria Santacruz MD Referring Provider Dayne Caraballo Attending Provider Dr. Singh Amaya MD Attending Provider Dr. Singh Amaya MD Referring Provider Dayne Caraballo Other Provider Francisco Javier WATSON, Dr. Murdock Attending Provider Dr. Mathieu Mcintyre MD Referring Provider Dr. Oniel Moulton MD [...] Chasidy WATSON, Dr. Clayton Attending Provider [phone] Chloé WATSON, Dr. García Attending Provider Chasidy WATSON, Dr. Clayton Referring Provider Chasidy WATSON, Dr. Clayton Other Provider Neeta WATSON, Dr. Rosa Maria Iverson Primary Care Provider Neeta WATSON, Dr. Rosa Maria Iverson Referring Provider Monique WATSON, Dr. Singh Brenner Attending Provider Monique WATSON, Dr. Singh Brenner Referring Provider Chloé WATSON, Dr. García Attending Provider Chasidy WATSON, Dr. Clayton Referring Provider [phone] Chasidy WATSON, Dr. Clayton Other Provider Monique [...] Referring Unavailable Flower, Jakob Attending Unavailable Singh Amaya Attending Unavailable Singh Amaya Referring Unavailable Jolliff, Rosa Maria S Primary Care Unavailable Rosalina Ricoyler Consulting [...] sources) Furosemide Drug Allergy 09-12-19 21 Ye [facility] Work Phone: Comment on above: after taking for a l nicholas period of time (20 sources) hydroCHLOROthiazide Drug Allergy 09-12-19 Ye [facility] Work Phone: (20 sources) Lovastatin; Translations: [LOVASTATIN] Drug Allergy 12-14-19 Kaylee Belcher Work Phone: (19 sources) amLODIPine; Translations: [AMLODIPINE] Drug Allergy 12-14-19 [facility] (1 source) Furosemide Drug Allergy 03-03-20 [facility] (1 source) hydroCHLOROthiazide Drug Allergy 03-03-20 [facility] (1 source) Lovastatin Drug Allergy 03-03-20 [facility] Repository Medications Current Medications Medication Drug Class(es) [...] 100 mg castor oil 0.788 mg/mg / swedish balsam 0.087 mg/mg topical ointment (1 source) [...] oil-hydrophilic petrolatum (AQUAPHOR) ointment polyethylene glycol [phone] mg powder for oral solution (5 sources) [...] 1,000 mg take 2 tablets by mo [facility] every eight hours as needed acetaminophen (TYLENOL EXTRA STRENGTH) 500 mg tablet Take 1,000 mg by mouth every 8 hours as needed for pain. 0 Active Comment on above: Take 3 tablets by mo [facility] every 6 hours. Take 1,000 mg by [facility] every 8 hours as needed for pain. 20 ml albumin human, penitentiary 250 mg/ml injection (1 source) Human Serum [...] in sodium chloride 0.9 % 30 mL ([employer]) (1 source) Start: 09-14-2020 End: 09-14-2020 alteplase (CATHFLO) 4 mg in sodium chloride 0.9 % 30 mL ([employer]) amiodarone hydrochloride 200 mg oral tablet [...] Comment on above: Take 1 tablet by [facility] once daily. amLODIPine 10 mg oral [...] Start: 10-07-2020 take 2 tablets by mo [facility] twice daily apixaban (ELIQUIS) 2.5 MG TABS tablet Take 2 tablets by mouth 2 times daily Increase to 5 mg bid unless decreased by your fruit grader. 60 tablet 0 10/07/2020 Active Start: 10-04-2020 [...] by mouth daily 0 09/21/2020 Discontinued (REORDER) Rwqrt-Ikww-Bztwg-Collag-Mv-M in (Fletcher (With Collagen)) 7-7-1.5 gram Powder In Packet (14 sources) Start: 12-19-2022 End: 05-08-2023 Asrrr-Sdso-Jbkap-Collag-Mv-M in (Fletcher (With Collagen)) 7-7-1.5 gram Powder In Packet Discontinued 1 NMA PO TWICE DAILY WITH MEALS 0 December 19, 2022 12:00am May 08, 2023 12:32pm Start: 12-19-2022 End: 05-08-2023 Jmihf-Ygfg-Jkqlf-Collag-Mv-M in (Fletcher (With Collagen)) 7-7-1.5 gram Powder In Packet Discontinued 1 NMA PO TWICE DAILY WITH MEALS 0 December 19, 2022 12:00am May 08, 2023 12:32pm Start: 12-19-2022 End: 05-08-2023 Gxqad-Duho-Mdbwb-Collag-Mv-M in (Fletcher (With Collagen)) 7-7-1.5 gram Powder In Packet Discontinued 1 PACKET PO TWICE DAILY WITH MEALS 0 December 19, 2022 12:00am May 08, 2023 12:32pm Start: 12-19-2022 End: 05-08-2023 Ucubf-Fuct-Nowoa-Collag-Mv-M in (Fletcher (With Collagen)) 7-7-1.5 gram Powder In Packet Discontinued 1 PACKET PO TWICE DAILY WITH MEALS 0 December 18, 2022 11:00pm May 08, 2023 11:32am Start: 12-19-2022 Perhr-Oxfg-Fzq de-Fcfgcm-Rx-Min (Fletcher (With Collagen)) 7-7-1.5 gram Powder In [...] 0 Active take 1 capsule by mo mth once daily balsalazide (COLAZAL) 750 MG capsule [...] docusate sodium 50 mg / srinivas osides, penitentiary 8.6 mg oral tablet (20 sources) Start: [...] Comment on above: Take 1 capsule by [facility] one time a week for 6 doses. [...] in sodium chloride 0.9 % 30 mL [employer] (1 source) Start: 09-19-2020 End: 09-19-2020 HYDROmorphone (DILAUDID) 30 mg in sodium chloride 0.9 % 30 mL [employer] lactobacillus acidophilus 100 mg oral capsule (20 [...] E1 Analog Start: 12-20-2022 End: 01-24-2023 nystatin [id number] unt/ml topical cream (20 sources) Polyene Antifungal [...] bleed5. Chronic anemia6. Ulcerative colitis7. CAD8. Hypertension9. Ebxatwxbwqkqgj35. Hypothyroidism Cardiac dysrhythmias (20 sources) Atrial fibrillation; Translations: [Atrial fibrillation and flutter ] Onset: 1 10-02-2020 Chronic Comment on above: DCCV on 05/09/2020; ROSI cardioversion at [facility] in September 2020; Cardiac dysrhythmias (20 [...] Coronary arteriosclerosis; Translations: [Atherosclerotic heart disease of [place] coronary artery without angina pectoris] Onset: 3 05-20-2022 Chronic Comment on above: CABG x2- ZARAGOZA to LAD , Aorto post descending coronary artery to revers SVG 02/12/17; atherectomy to ostial RCA, LINYD to Prox/Mid RCA 04/2009 Deficiency and other [...] of consciousness status, initial encounter ([facility])] 01-20-2023 Episodic Malaise and fatigue (20 sources) [...] sources) Long-term current use of anticoagulant; Translations: [MCC (current) use 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] 10-02-2020 Episodic Other [...] sources) Long-term current use of antibiotic; 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] 09-21-2020 Unclassified (1 source) Intraparenchymal hematoma of right side of brain due to trauma, with unknown loss of consciousness status, initial encounter ([facility]); Translations: [Intraparenchymal hematoma of right side of brain due to trauma, with unknown loss of consciousness status, initial encounter ([facility])] Onset: 3 Past or Other Problems Problem [...] Absolute Lymph 0.85 X10 3/uL Normal 0.83-4.51 [facility] Comment on above: Performed By: #### L 100.0100, L501.2450, L500.4050 ####[facility] [address] [place], [address] Absolute Neut 5.1 X10 3/uL Normal 2.0-7.7 [facility] Comment on above: Performed By: #### L 100.0100, L501.2450, L500.4050 ####[facility] [address] [place], [address] Basophils/100 WBC (Bld) 0.7 % Normal 0-1 [facility] Comment on above: Performed By: #### L 100.0100, L501.2450, L500.4050 ####[facility] [address] [place], [address] Eosinophils/100 WBC (Bld) 5.1 % High 0-5 [facility] Comment on above: Performed By: #### L 100.0100, L501.2450, L500.4050 ####[facility] [address] [place], [address] Erythrocyte distribution width (RBC) [Ratio] 13.2 % Normal 11.6-14.6 [facility] Comment on above: Performed By: #### L 100.0100, L501.2450, L500.4050 ####[facility] [address] [place], [address] Hematocrit (Bld) [Volume fraction] 33.3 % Low 40-54 [facility] Comment on above: Performed By: #### L 100.0100, L501.2450, L500.4050 ####[facility] [address] [place], [address] Hemoglobin (Bld) [Mass/Vol] 11.5 g/dL Low 13.0-16.5 [facility] Comment on above: Performed By: #### L 100.0100, L501.2450, L500.4050 ####[facility] [address] [place], [address] IG% 0.100 Normal 0.0-0.9 [facility] Comment on above: Result Comment: IG% - Immature Granulocytes (promyelocytes, myelocytes andmetamyelocytes) > 1% indicates that a LEFT SHIFT is Present. Performed By: #### L 100.0100, L501.2450, L500.4050 ####[facility] [address] [place], [address] Lymphocytes/100 WBC (Bld) 12.1 % Low 19-41 [facility] Comment on above: Performed By: #### L 100.0100, L501.2450, L500.4050 ####[facility] [address] [place], [address] MCH (RBC) [Entitic mass] 34.3 pg High 27.0-32.0 [facility] Comment on above: Performed By: #### L 100.0100, L501.2450, L500.4050 ####[facility] [address] [place], [address] MCHC (RBC) [Mass/Vol] 34.5 g/dL Normal 32-36 [facility] Comment on above: Performed By: #### L 100.0100, L501.2450, L500.4050 ####[facility] [address] [place], [address] MCV (RBC) [Entitic vol] 99.4 fL High 80-94 [facility] Comment on above: Performed By: #### L 100.0100, L501.2450, L500.4050 ####[facility] [address] [place], [address] Monocytes/100 WBC (Bld) 9.0 % Normal 0-10 [facility] Comment on above: Performed By: #### L 100.0100, L501.2450, L500.4050 ####[facility] [address] [place], [address] Neutrophils/100 WBC (Bld) 73.0 % High 47-70 [facility] Comment on above: Performed By: #### L 100.0100, L501.2450, L500.4050 ####[facility] [address] [place], [address] Nucleated RBC (Bld) [#/Vol] 0 10*3/uL Normal 0-5 [facility] Comment on above: Performed By: #### L 100.0100, L501.2450, L500.4050 ####[facility] [address] [place], [address] Platelet mean volume (Bld) [Entitic vol] 9.2 fL Normal 6.2-12.0 [facility] Comment on above: Performed By: #### L 100.0100, L501.2450, L500.4050 ####[facility] [address] [place], [address] Platelets (Bld) [#/Vol] 149 10*3/uL Low 150-450 [facility] Comment on above: Performed By: #### L 100.0100, L501.2450, L500.4050 ####[facility] [address] [place], [address] RBC (Bld) [#/Vol] 3.35 10*6/uL Low 4.6-6.2 [facility] Comment on above: Performed By: #### L 100.0100, L501.2450, L500.4050 ####[facility] [address] [place], [address] RDW SD 48.3 fl High 35.1-43.9 [facility] Comment on above: Performed By: #### L 100.0100, L501.2450, L500.4050 ####[facility] [address] [place], [address] WBC (Bld) [#/Vol] 7.0 10*3/uL Normal 4.4-11.0 [facility] Comment on above: Performed By: #### L 100.0100, L501.2450, L500.4050 ####[facility] [address] [place], [address] Comprehensive Metabolic Prof ilon 05-11-2025 Albumin [Mass/Vol] 4.2 g/dL Normal 3.4-4.8 [facility] Comment on above: Performed By: #### L 100.0100, L501.2450, L500.4050 ####[facility] [address] [place], [address] Albumin/Globulin [Mass ratio] 1.8 {ratio} Normal 0.9-2.4 [facility] Comment on above: Performed By: #### L 100.0100, L501.2450, L500.4050 ####[facility] [address] [place], [address] ALK PHOS 81 U/L Normal 40-129 [facility] Comment on above: Performed By: #### L 100.0100, L501.2450, L500.4050 ####[facility] [address] [place], [address] ALT [Catalytic activity/Vol] 18 U/L Normal <=46 [facility] Comment on above: Performed By: #### L 100.0100, L501.2450, L500.4050 ####[facility] [address] [place], [address] AST [Catalytic activity/Vol] 17 U/L Normal <=37 [facility] Comment on above: Performed By: #### L 100.0100, L501.2450, L500.4050 ####[facility] [address] [place], [address] Bilirubin [Mass/Vol] 0.38 mg/dL Normal 0.00-1.30 [facility] Comment on above: Performed By: #### L 100.0100, L501.2450, L500.4050 ####[facility] [address] [place], [address] BUN/CRE 28.2 RATIO High 10-20 [facility] Comment on above: Performed By: #### L 100.0100, L501.2450, L500.4050 ####[facility] [address] [place], [address] Calcium [Mass/Vol] 9.4 mg/dL Normal 7.6-11.0 [facility] Comment on above: Performed By: #### L 100.0100, L501.2450, L500.4050 ####[facility] [address] [place], [address] Chloride [Moles/Vol] 98 mmol/L Normal 98-108 [facility] Comment on above: Performed By: #### L 100.0100, L501.2450, L500.4050 ####[facility] [address] [place], [address] CO2 [Moles/Vol] 28.1 mmol/L Normal 21.0-32.0 [facility] Comment on above: Performed By: #### L 100.0100, L501.2450, L500.4050 ####[facility] [address] [place], [address] Creatinine [Mass/Vol] 3.65 mg/dL High 0.70-1.20 [facility] Comment on above: Performed By: #### L 100.0100, L501.2450, L500.4050 ####[facility] [address] [place], [address] ECRCL 15.83 ml/min Low 50-250 [facility] Comment on above: Performed By: #### L 100.0100, L501.2450, L500.4050 ####[facility] [address] [place], [address] GAP 14 Normal 5-15 [facility] Comment on above: Performed By: #### L 100.0100, L501.2450, L500.4050 ####[facility] [address] [place], [address] GFR/1.73 sq M.predicted among non-blacks MDRD (S/P/Bld) [Vol rate/Area] 16 mL/min/{1.73_m2} Low >60 [facility] Comment on above: Result Comment: mL/m in/1.73m2 CKD-EPI Creatinine Equation (2020) Performed By: #### L 100.0100, L501.2450, L500.4050 ####[facility] [address] [place], [address] Globulin (S) [Mass/Vol] 2.4 g/dL Normal 2.2-4.[address] [facility] Comment on above: Performed By: #### L 100.0100, L501.2450, L500.4050 ####[facility] [address] [place], [address] Glucose [Mass/Vol] 131 mg/dL High 70-99 [facility] Comment on above: Performed By: #### L 100.0100, L501.2450, L500.4050 ####[facility] [address] [place], [address] Potassium [Moles/Vol] 4.1 mmol/L Normal 3.3-5.1 [facility] Comment on above: Performed By: #### L 100.0100, L501.2450, L500.4050 ####[facility] [address] [place], [address] Sodium [Moles/Vol] 140 mmol/L Normal 133-145 [facility] Comment on above: Performed By: #### L 100.0100, L501.2450, L500.4050 ####[facility] [address] [place], [address] T PROT 6.6 g/dL Normal 5.9-8.4 [facility] Comment on above: Performed By: #### L 100.0100, L501.2450, L500.4050 ####[facility] [address] [place], [address] Urea nitrogen [Mass/Vol] 103 mg/dL Invalid Interpretation Code 4- [facility] Comment on above: Result Comment: Crit ical Result(s) Called at: 0959 05/11/2025 by: MARTY??Results read back by same. Performed By: #### L 100.0100, L501.2450, L500.4050 ####[facility] [address] [place], [address] Emergency Department Summary on 05-11-2025 Emergency Department Summary Normal [facility] Kidney and Bladderon 025 Kidney and Bladder Normal [facility] Lipaseon 05-11-2025 Lipase [Catalytic activity/Vol] 84 U/L High 13-75 [facility] Comment on above: Result Comment: Louie pineda note:LIPASE revised reference range effective 22.New Lipase methodology. Expected to produce lower valuesthan the previous assay method.NEW Reference Range: 13 - 75 U/L Performed By: #### L 100.0100, L501.2450, L500.4050 ####[facility] [address] [place], [address] Urinalysis, Completeon 05-11 BACTERIA Normal None Seen [facility] Comment on above: Order Comment: CLEAN CATCH Result Comment: PT D EPARTED ER Performed By: #### L 400.0001 ####[facility] [address] [place], [address] BILIRUBIN URINE Normal Negative [facility] Comment on above: Order Comment: CLEAN CATCH Result Comment: PT D EPARTED ER Performed By: #### L 400.0001 ####[facility] [address] [place], [address] Clarity (U) Normal Clear [facility] Comment on above: Order Comment: CLEAN CATCH Result Comment: PT D EPARTED ER Performed By: #### L 400.0001 ####[facility] [address] [place], [address] Color (U) Normal Yellow [facility] Comment on above: Order Comment: CLEAN CATCH Result Comment: PT D EPARTED ER Performed By: #### L 400.0001 ####[facility] [address] [place], [address] EPI,SQUAMOUS Normal 0-5 [facility] Comment on above: Order Comment: CLEAN CATCH Result Comment: PT D EPARTED ER Performed By: #### L 400.0001 ####[facility] [address] [place], [address] GLUCOSE, UR Normal Normal [facility] Comment on above: Order Comment: CLEAN CATCH Result Comment: PT D EPARTED ER Performed By: #### L 400.0001 ####[facility] [address] [place], [address] KETONE UR Normal Negative [facility] Comment on above: Order Comment: CLEAN CATCH Result Comment: PT D EPARTED ER Performed By: #### L 400.0001 ####[facility] [address] [place], [address] LEUK ESTERASE Normal Negative [facility] Comment on above: Order Comment: CLEAN CATCH Result Comment: PT D EPARTED ER Performed By: #### L 400.0001 ####[facility] [address] [place], [address] Mucus Ql (Urine sed) Normal [facility] Comment on above: Order Comment: CLEAN CATCH Result Comment: PT D EPARTED ER Performed By: #### L 400.0001 ####[facility] [address] [place], [address] Nitrite Ql (U) Normal Negative [facility] Comment on above: Order Comment: CLEAN CATCH Result Comment: PT D EPARTED ER Performed By: #### L 400.0001 ####[facility] [address] [place], [address] OCCULT BLOOD-UR Normal Negative [facility] Comment on above: Order Comment: CLEAN CATCH Result Comment: PT D EPARTED ER Performed By: #### L 400.0001 ####[facility] [address] [place], [address] pH UR Normal 5.0 - 8.0 [facility] Comment on above: Order Comment: CLEAN CATCH Result Comment: PT D EPARTED ER Performed By: #### L 400.0001 ####[facility] [address] [place], [address] PROT DIPSTX Normal Negative [facility] Comment on above: Order Comment: CLEAN CATCH Result Comment: PT D EPARTED ER Performed By: #### L 400.0001 ####[facility] [address] [place], [address] RBC Normal 0-5 [facility] Comment on above: Order Comment: CLEAN CATCH Result Comment: PT D EPARTED ER Performed By: #### L 400.0001 ####[facility] [address] [place], [address] SP.GR. DIPSTX Normal 1.002-1.03 0 [facility] Comment on above: Order Comment: CLEAN CATCH Result Comment: PT D EPARTED ER Performed By: #### L 400.0001 ####[facility] [address] [place], [address] UR Preservative Normal [facility] Comment on above: Order Comment: CLEAN CATCH Result Comment: PT D EPARTED ER Performed By: #### L 400.0001 ####[facility] [address] [place], [address] UROBILI Normal Normal [facility] Comment on above: Order Comment: CLEAN CATCH Result Comment: PT D EPARTED ER Performed By: #### L 400.0001 ####[facility] [address] [place], [address] WBC Normal 0-5 [facility] Comment on above: Order Comment: CLEAN CATCH Result Comment: PT D EPARTED ER Performed By: #### L 400.0001 ####[facility] [address] [place], [address] Basic Metabolic Profile (BMP )on 05-06-2025 BUN Normal 4-19 [facility] Comment on above: Result Comment: Canc elled via OM: Order cancelled - Patient discharged Performed By: #### L 100.0100, L500.2500 ####[facility] [address] [place], [address] BUN/CRE Normal 10-20 [facility] Comment on above: Result Comment: Canc elled via OM: Order cancelled - Patient discharged Performed By: #### L 100.0100, L500.2500 ####[facility] [address] [place], [address] Calcium Normal 7.6-11.0 [facility] Comment on above: Result Comment: Canc elled via OM: Order cancelled - Patient discharged Performed By: #### L 100.0100, L500.2500 ####[facility] [address] [place], [address] CL Normal 98-108 [facility] Comment on above: Result Comment: Canc elled via OM: Order cancelled - Patient discharged Performed By: #### L 100.0100, L500.2500 ####[facility] [address] [place], [address] CO2 Normal 21.0-32.0 [facility] Comment on above: Result Comment: Canc elled via OM: Order cancelled - Patient discharged Performed By: #### L 100.0100, L500.2500 ####[facility] [address] [place], [address] CREAT,SERUM Normal 0.70-1.20 [facility] Comment on above: Result Comment: Canc elled via OM: Order cancelled - Patient discharged Performed By: #### L 100.0100, L500.2500 ####[facility] [address] [place], [address] eGFR Normal >60 [facility] Comment on above: Result Comment: Canc elled via OM: Order cancelled - Patient discharged Performed By: #### L 100.0100, L500.2500 ####[facility] [address] [place], [address] GAP Normal 5-15 [facility] Comment on above: Result Comment: Canc elled via OM: Order cancelled - Patient discharged Performed By: #### L 100.0100, L500.2500 ####[facility] [address] [place], [address] GLU Normal 70-99 [facility] Comment on above: Result Comment: Canc elled via OM: Order cancelled - Patient discharged Performed By: #### L 100.0100, L500.2500 ####[facility] [address] [place], [address] Potassium Normal 3.3-5.1 [facility] Comment on above: Result Comment: Canc elled via OM: Order cancelled - Patient discharged Performed By: #### L 100.0100, L500.2500 ####[facility] [address] [place], [address] Basic Metabolic Profile (BMP) Normal 133-145 [facility] Comment on above: Result Comment: Canc elled via OM: Order cancelled - Patient discharged Performed By: #### L 100.0100, L500.2500 ####[facility] [address] [place], [address] CBC W/Diff, Automatedon 11-0 Absolute Neut Normal 2.0-7.7 [facility] Comment on above: Result Comment: Canc elled via OM: Order cancelled - Patient discharged Performed By: #### L 100.0100, L500.2500 ####[facility] [address] [place], [address] HCT Normal 40-54 [facility] Comment on above: Result Comment: Canc elled via OM: Order cancelled - Patient discharged Performed By: #### L 100.0100, L500.2500 ####[facility] [address] [place], [address] HGB Normal 13.0-16.5 [facility] Comment on above: Result Comment: Canc elled via OM: Order cancelled - Patient discharged Performed By: #### L 100.0100, L500.2500 ####[facility] [address] [place], [address] MCH Normal 27.0-32.0 [facility] Comment on above: Result Comment: Canc elled via OM: Order cancelled - Patient discharged Performed By: #### L 100.0100, L500.2500 ####[facility] [address] [place], [address] MCHC Normal 32-36 [facility] Comment on above: Result Comment: Canc elled via OM: Order cancelled - Patient discharged Performed By: #### L 100.0100, L500.2500 ####[facility] [address] [place], [address] MCV Normal 80-94 [facility] Comment on above: Result Comment: Canc elled via OM: Order cancelled - Patient discharged Performed By: #### L 100.0100, L500.2500 ####[facility] [address] [place], [address] NEUT% Normal 47-70 [facility] Comment on above: Result Comment: Canc elled via OM: Order cancelled - Patient discharged Performed By: #### L 100.0100, L500.2500 ####[facility] [address] [place], [address] PLT Normal 150-450 [facility] Comment on above: Result Comment: Canc elled via OM: Order cancelled - Patient discharged Performed By: #### L 100.0100, L500.2500 ####[facility] [address] [place], [address] RBC Normal 4.6-6.2 [facility] Comment on above: Result Comment: Canc elled via OM: Order cancelled - Patient discharged Performed By: #### L 100.0100, L500.2500 ####[facility] [address] [place], [address] RDW CV Normal 11.6-14.6 [facility] Comment on above: Result Comment: Canc elled via OM: Order cancelled - Patient discharged Performed By: #### L 100.0100, L500.2500 ####[facility] [address] [place], [address] RDW SD Normal 35.1-43.9 [facility] Comment on above: Result Comment: Canc elled via OM: Order cancelled - Patient discharged Performed By: #### L 100.0100, L500.2500 ####[facility] [address] [place], [address] WBC Normal 4.4-11.0 [facility] Comment on above: Result Comment: Canc elled via OM: Order cancelled - Patient discharged Performed By: #### L 100.0100, L500.2500 ####[facility] [address] [place], [address] Basic Metabolic Profile (BMP )on 05-05-2025 BUN Normal 4-19 [facility] Comment on above: Result Comment: Canc elled via OM: Order cancelled - Patient discharged Performed By: #### L 500.2500, L100.0100 ####[facility] [address] [place], [address] BUN/CRE Normal 10-20 [facility] Comment on above: Result Comment: Canc elled via OM: Order cancelled - Patient discharged Performed By: #### L 500.2500, L100.0100 ####[facility] [address] [place], [address] Calcium Normal 7.6-11.0 [facility] Comment on above: Result Comment: Canc elled via OM: Order cancelled - Patient discharged Performed By: #### L 500.2500, L100.0100 ####[facility] [address] [place], [address] CL Normal 98-108 [facility] Comment on above: Result Comment: Canc elled via OM: Order cancelled - Patient discharged Performed By: #### L 500.2500, L100.0100 ####[facility] [address] [place], [address] CO2 Normal 21.0-32.0 [facility] Comment on above: Result Comment: Canc elled via OM: Order cancelled - Patient discharged Performed By: #### L 500.2500, L100.0100 ####[facility] [address] [place], [address] CREAT,SERUM Normal 0.70-1.20 [facility] Comment on above: Result Comment: Canc elled via OM: Order cancelled - Patient discharged Performed By: #### L 500.2500, L100.0100 ####[facility] [address] [place], [address] eGFR Normal >60 [facility] Comment on above: Result Comment: Canc elled via OM: Order cancelled - Patient discharged Performed By: #### L 500.2500, L100.0100 ####[facility] [address] [place], [address] GAP Normal 5-15 [facility] Comment on above: Result Comment: Canc elled via OM: Order cancelled - Patient discharged Performed By: #### L 500.2500, L100.0100 ####[facility] [address] [place], [address] GLU Normal 70-99 [facility] Comment on above: Result Comment: Canc elled via OM: Order cancelled - Patient discharged Performed By: #### L 500.2500, L100.0100 ####[facility] [address] [place], [address] Potassium Normal 3.3-5.1 [facility] Comment on above: Result Comment: Canc elled via OM: Order cancelled - Patient discharged Performed By: #### L 500.2500, L100.0100 ####[facility] [address] [place], [address] Basic Metabolic Profile (BMP) Normal 133-145 [facility] Comment on above: Result Comment: Canc elled via OM: Order cancelled - Patient discharged Performed By: #### L 500.2500, L100.0100 ####[facility] [address] [place], [address] CBC W/Diff, Automatedon 11-0 -2024 Absolute Neut Normal 2.0-7.7 [facility] Comment on above: Result Comment: Canc elled via OM: Order cancelled - Patient discharged Performed By: #### L 500.2500, L100.0100 ####[facility] [address] [place], [address] HCT Normal 40-54 [facility] Comment on above: Result Comment: Canc elled via OM: Order cancelled - Patient discharged Performed By: #### L 500.2500, L100.0100 ####[facility] [address] [place], [address] HGB Normal 13.0-16.5 [facility] Comment on above: Result Comment: Canc elled via OM: Order cancelled - Patient discharged Performed By: #### L 500.2500, L100.0100 ####[facility] [address] [place], [address] MCH Normal 27.0-32.0 [facility] Comment on above: Result Comment: Canc elled via OM: Order cancelled - Patient discharged Performed By: #### L 500.2500, L100.0100 ####[facility] [address] [place], [address] MCHC Normal 32-36 [facility] Comment on above: Result Comment: Canc elled via OM: Order cancelled - Patient discharged Performed By: #### L 500.2500, L100.0100 ####[facility] [address] [place], [address] MCV Normal 80-94 [facility] Comment on above: Result Comment: Canc elled via OM: Order cancelled - Patient discharged Performed By: #### L 500.2500, L100.0100 ####[facility] [address] [place], [address] NEUT% Normal 47-70 [facility] Comment on above: Result Comment: Canc elled via OM: Order cancelled - Patient discharged Performed By: #### L 500.2500, L100.0100 ####[facility] [address] [place], [address] PLT Normal 150-450 [facility] Comment on above: Result Comment: Canc elled via OM: Order cancelled - Patient discharged Performed By: #### L 500.2500, L100.0100 ####[facility] [address] [place], [address] RBC Normal 4.6-6.2 [facility] Comment on above: Result Comment: Canc elled via OM: Order cancelled - Patient discharged Performed By: #### L 500.2500, L100.0100 ####[facility] [address] [place], [address] RDW CV Normal 11.6-14.6 [facility] Comment on above: Result Comment: Canc elled via OM: Order cancelled - Patient discharged Performed By: #### L 500.2500, L100.0100 ####[facility] [address] [place], [address] RDW SD Normal 35.1-43.9 [facility] Comment on above: Result Comment: Canc elled via OM: Order cancelled - Patient discharged Performed By: #### L 500.2500, L100.0100 ####[facility] [address] [place], [address] WBC Normal 4.4-11.0 [facility] Comment on above: Result Comment: Canc elled via OM: Order cancelled - Patient discharged Performed By: #### L 500.2500, L100.0100 ####[facility] [address] [place], [address] Basic Metabolic Profile (BMP )on 05-04-2025 BUN Normal 4-19 [facility] Comment on above: Result Comment: Canc elled via OM: Order cancelled - Patient discharged Performed By: #### L 500.2500, L100.0100 ####[facility] [address] [place], [address] BUN/CRE Normal 10-20 [facility] Comment on above: Result Comment: Canc elled via OM: Order cancelled - Patient discharged Performed By: #### L 500.2500, L100.0100 ####[facility] [address] [place], [address] Calcium Normal 7.6-11.0 [facility] Comment on above: Result Comment: Canc elled via OM: Order cancelled - Patient discharged Performed By: #### L 500.2500, L100.0100 ####[facility] [address] [place], [address] CL Normal 98-108 [facility] Comment on above: Result Comment: Canc elled via OM: Order cancelled - Patient discharged Performed By: #### L 500.2500, L100.0100 ####[facility] [address] [place], [address] CO2 Normal 21.0-32.0 [facility] Comment on above: Result Comment: Canc elled via OM: Order cancelled - Patient discharged Performed By: #### L 500.2500, L100.0100 ####[facility] [address] [place], [address] CREAT,SERUM Normal 0.70-1.20 [facility] Comment on above: Result Comment: Canc elled via OM: Order cancelled - Patient discharged Performed By: #### L 500.2500, L100.0100 ####[facility] [address] [place], [address] eGFR Normal >60 [facility] Comment on above: Result Comment: Canc elled via OM: Order cancelled - Patient discharged Performed By: #### L 500.2500, L100.0100 ####[facility] [address] [place], [address] GAP Normal 5-15 [facility] Comment on above: Result Comment: Canc elled via OM: Order cancelled - Patient discharged Performed By: #### L 500.2500, L100.0100 ####[facility] [address] [place], [address] GLU Normal 70-99 [facility] Comment on above: Result Comment: Canc elled via OM: Order cancelled - Patient discharged Performed By: #### L 500.2500, L100.0100 ####[facility] [address] [place], [address] Potassium Normal 3.3-5.1 [facility] Comment on above: Result Comment: Canc elled via OM: Order cancelled - Patient discharged Performed By: #### L 500.2500, L100.0100 ####[facility] [address] [place], [address] Basic Metabolic Profile (BMP) Normal 133-145 [facility] Comment on above: Result Comment: Canc elled via OM: Order cancelled - Patient discharged Performed By: #### L 500.2500, L100.0100 ####[facility] [address] [place], [address] CBC W/Diff, Automatedon 11-0 -2024 Absolute Neut Normal 2.0-7.7 [facility] Comment on above: Result Comment: Canc elled via OM: Order cancelled - Patient discharged Performed By: #### L 500.2500, L100.0100 ####[facility] [address] [place], [address] HCT Normal 40-54 [facility] Comment on above: Result Comment: Canc elled via OM: Order cancelled - Patient discharged Performed By: #### L 500.2500, L100.0100 ####[facility] [address] [place], [address] HGB Normal 13.0-16.5 [facility] Comment on above: Result Comment: Canc elled via OM: Order cancelled - Patient discharged Performed By: #### L 500.2500, L100.0100 ####[facility] [address] [place], [address] MCH Normal 27.0-32.0 [facility] Comment on above: Result Comment: Canc elled via OM: Order cancelled - Patient discharged Performed By: #### L 500.2500, L100.0100 ####[facility] [address] [place], [address] MCHC Normal 32-36 [facility] Comment on above: Result Comment: Canc elled via OM: Order cancelled - Patient discharged Performed By: #### L 500.2500, L100.0100 ####[facility] [address] [place], [address] MCV Normal 80-94 [facility] Comment on above: Result Comment: Canc elled via OM: Order cancelled - Patient discharged Performed By: #### L 500.2500, L100.0100 ####[facility] [address] [place], [address] NEUT% Normal 47-70 [facility] Comment on above: Result Comment: Canc elled via OM: Order cancelled - Patient discharged Performed By: #### L 500.2500, L100.0100 ####[facility] [address] [place], [address] PLT Normal 150-450 [facility] Comment on above: Result Comment: Canc elled via OM: Order cancelled - Patient discharged Performed By: #### L 500.2500, L100.0100 ####[facility] [address] [place], [address] RBC Normal 4.6-6.2 [facility] Comment on above: Result Comment: Canc elled via OM: Order cancelled - Patient discharged Performed By: #### L 500.2500, L100.0100 ####[facility] [address] [place], [address] RDW CV Normal 11.6-14.6 [facility] Comment on above: Result Comment: Canc elled via OM: Order cancelled - Patient discharged Performed By: #### L 500.2500, L100.0100 ####[facility] [address] [place], [address] RDW SD Normal 35.1-43.9 [facility] Comment on above: Result Comment: Canc elled via OM: Order cancelled - Patient discharged Performed By: #### L 500.2500, L100.0100 ####[facility] [address] [place], [address] WBC Normal 4.4-11.0 [facility] Comment on above: Result Comment: Canc elled via OM: Order cancelled - Patient discharged Performed By: #### L 500.2500, L100.0100 ####[facility] [address] [place], [address] 12 Lead EKGon 05-03-2025 12 Lead EKG Normal [facility] Basic Metabolic Profile (BMP )on 05-03-2025 BUN/CRE 28.0 RATIO High 10-20 [facility] Comment on above: Performed By: #### L 100.0100, L501.5200, L501.2300, L500.2500 ####[facility] [address] [place], [address] Calcium [Mass/Vol] 8.9 mg/dL Normal 7.6-11.0 [facility] Comment on above: Performed By: #### L 100.0100, L501.5200, L501.2300, L500.2500 ####[facility] [address] [place], [address] Chloride [Moles/Vol] 102 mmol/L Normal 98-108 [facility] Comment on above: Performed By: #### L 100.0100, L501.5200, L501.2300, L500.2500 ####[facility] [address] [place], [address] CO2 [Moles/Vol] 28.2 mmol/L Normal 21.0-32.0 [facility] Comment on above: Performed By: #### L 100.0100, L501.5200, L501.2300, L500.2500 ####[facility] [address] [place], [address] Creatinine [Mass/Vol] 3.51 mg/dL High 0.70-1.20 [facility] Comment on above: Performed By: #### L 100.0100, L501.5200, L501.2300, L500.2500 ####[facility] [address] [place], [address] ECRCL 16.46 ml/min Low 50-250 [facility] Comment on above: Performed By: #### L 100.0100, L501.5200, L501.2300, L500.2500 ####[facility] [address] [place], [address] GAP 13 Normal 5-15 [facility] Comment on above: Performed By: #### L 100.0100, L501.5200, L501.2300, L500.2500 ####[facility] [address] [place], [address] GFR/1.73 sq M.predicted among non-blacks MDRD (S/P/Bld) [Vol rate/Area] 17 mL/min/{1.73_m2} Low >60 [facility] Comment on above: Result Comment: mL/m in/1.73m2 CKD-EPI Creatinine Equation (2020) Performed By: #### L 100.0100, L501.5200, L501.2300, L500.2500 ####[facility] [address] [place], [address] Glucose [Mass/Vol] 106 mg/dL High 70-99 [facility] Comment on above: Performed By: #### L 100.0100, L501.5200, L501.2300, L500.2500 ####[facility] [address] [place], [address] Potassium [Moles/Vol] 3.2 mmol/L Low 3.3-5.1 [facility] Comment on above: Performed By: #### L 100.0100, L501.5200, L501.2300, L500.2500 ####[facility] [address] [place], [address] Sodium [Moles/Vol] 144 mmol/L Normal 133-145 [facility] Comment on above: Performed By: #### L 100.0100, L501.5200, L501.2300, L500.2500 ####[facility] [address] [place], [address] Urea nitrogen [Mass/Vol] 98 mg/dL High 4-19 [facility] Comment on above: Performed By: #### L 100.0100, L501.5200, L501.2300, L500.2500 ####[facility] [address] [place], [address] CBC W/Diff, Automatedon 11-0 4-2024 Absolute Lymph 0.56 X10 3/uL Low 0.83-4.51 [facility] Comment on above: Performed By: #### L 100.0100, L501.5200, L501.2300, L500.2500 ####[facility] [address] [place], [address] Absolute Neut 3.5 X10 3/uL Normal 2.0-7.7 [facility] Comment on above: Performed By: #### L 100.0100, L501.5200, L501.2300, L500.2500 ####[facility] [address] [place], [address] Basophils/100 WBC (Bld) 0.2 % Normal 0-1 [facility] Comment on above: Performed By: #### L 100.0100, L501.5200, L501.2300, L500.2500 ####[facility] [address] [place], [address] Eosinophils/100 WBC (Bld) 3.9 % Normal 0-5 [facility] Comment on above: Performed By: #### L 100.0100, L501.5200, L501.2300, L500.2500 ####[facility] [address], [address] Erythrocyte distribution width (RBC) [Ratio] 13.3 % Normal 11.6-14.6 [facility] Comment on above: Performed By: #### L 100.0100, L501.5200, L501.2300, L500.2500 ####[facility] [address] [place], [address] Hematocrit (Bld) [Volume fraction] 28.7 % Low 40-54 [facility] Comment on above: Performed By: #### L 100.0100, L501.5200, L501.2300, L500.2500 ####[facility] [address] [place], [address] Hemoglobin (Bld) [Mass/Vol] 9.6 g/dL Low 13.0-16.5 [facility] Comment on above: Performed By: #### L 100.0100, L501.5200, L501.2300, L500.2500 ####[facility] [address] [place], [address] IG% 0.400 Normal 0.0-0.9 [facility] Comment on above: Result Comment: IG% - Immature Granulocytes (promyelocytes, myelocytes andmetamyelocytes) > 1% indicates that a LEFT SHIFT is Present. Performed By: #### L 100.0100, L501.5200, L501.2300, L500.2500 ####[facility] [address] [place], [address] Lymphocytes/100 WBC (Bld) 11.5 % Low 19-41 [facility] Comment on above: Performed By: #### L 100.0100, L501.5200, L501.2300, L500.2500 ####[facility] [address] [place], [address] MCH (RBC) [Entitic mass] 33.8 pg High 27.0-32.0 [facility] Comment on above: Performed By: #### L 100.0100, L501.5200, L501.2300, L500.2500 ####[facility] [address] [place], [address] MCHC (RBC) [Mass/Vol] 33.4 g/dL Normal 32-36 [facility] Comment on above: Performed By: #### L 100.0100, L501.5200, L501.2300, L500.2500 ####[facility] [address] [place], [address] MCV (RBC) [Entitic vol] 101.1 fL High 80-94 [facility] Comment on above: Performed By: #### L 100.0100, L501.5200, L501.2300, L500.2500 ####[facility] [address] [place], [address] Monocytes/100 WBC (Bld) 12.3 % High 0-10 [facility] Comment on above: Performed By: #### L 100.0100, L501.5200, L501.2300, L500.2500 ####[facility] [address] [place], [address] Neutrophils/100 WBC (Bld) 71.7 % High 47-70 [facility] Comment on above: Performed By: #### L 100.0100, L501.5200, L501.2300, L500.2500 ####[facility] [address] [place], [address] Nucleated RBC (Bld) [#/Vol] 0 10*3/uL Normal 0-5 [facility] Comment on above: Performed By: #### L 100.0100, L501.5200, L501.2300, L500.2500 ####[facility] [address] [place], [address] Platelet mean volume (Bld) [Entitic vol] 9.6 fL Normal 6.2-12.0 [facility] Comment on above: Performed By: #### L 100.0100, L501.5200, L501.2300, L500.2500 ####[facility] [address] [place], [address] Platelets (Bld) [#/Vol] 127 10*3/uL Low 150-450 [facility] Comment on above: Performed By: #### L 100.0100, L501.5200, L501.2300, L500.2500 ####[facility] [address] [place], [address] RBC (Bld) [#/Vol] 2.84 10*6/uL Low 4.6-6.2 [facility] Comment on above: Performed By: #### L 100.0100, L501.5200, L501.2300, L500.2500 ####[facility] [address] [place], [address] RDW SD 49.6 fl High 35.1-43.9 [facility] Comment on above: Performed By: #### L 100.0100, L501.5200, L501.2300, L500.2500 ####[facility] [address] [place], [address] WBC (Bld) [#/Vol] 4.9 10*3/uL Normal 4.4-11.0 [facility] Comment on above: Performed By: #### L 100.0100, L501.5200, L501.2300, L500.2500 ####[facility] [address] [place], [address] Magnesiumon 05-03-2025 Magnesium [Mass/Vol] 2.2 mg/dL Normal 1.5-2.2 [facility] Comment on above: Performed By: #### L 100.0100, L501.5200, L501.2300, L500.2500 ####[facility] [address] [place], [address] Phosphoruson 05-03-2025 Phosphate [Mass/Vol] 4.3 mg/dL Normal 2.7-4.5 [facility] Comment on above: Performed By: #### L 100.0100, L501.5200, L501.2300, L500.2500 ####[facility] [address] [place], [address] Basic Metabolic Profile (BMP )on 05-02-2025 BUN/CRE 28.2 RATIO High 10-20 [facility] Comment on above: Performed By: #### L 500.2500 ####[facility] [address] [place], [address] Calcium [Mass/Vol] 8.4 mg/dL Normal 7.6-11.0 [facility] Comment on above: Performed By: #### L 500.2500 ####[facility] [address] [place], [address] Chloride [Moles/Vol] 104 mmol/L Normal 98-108 [facility] Comment on above: Performed By: #### L 500.2500 ####[facility] [address] [place], [address] CO2 [Moles/Vol] 24.5 mmol/L Normal 21.0-32.0 [facility] Comment on above: Performed By: #### L 500.2500 ####[facility] [address] [place], [address] Creatinine [Mass/Vol] 3.54 mg/dL High 0.70-1.20 [facility] Comment on above: Performed By: #### L 500.2500 ####[facility] [address] [place], [address] ECRCL 16.33 ml/min Low 50-250 [facility] Comment on above: Performed By: #### L 500.2500 ####[facility] [address] [place], [address] GAP 14 Normal 5-15 [facility] Comment on above: Performed By: #### L 500.2500 ####[facility] [address] [place], [address] GFR/1.73 sq M.predicted among non-blacks MDRD (S/P/Bld) [Vol rate/Area] 16 mL/min/{1.73_m2} Low >60 [facility] Comment on above: Result Comment: mL/m in/1.73m2 CKD-EPI Creatinine Equation (2020) Performed By: #### L 500.2500 ####[facility] [address] [place], [address] Glucose [Mass/Vol] 102 mg/dL High 70-99 [facility] Comment on above: Performed By: #### L 500.2500 ####[facility] [address] [place], [address] Potassium [Moles/Vol] 3.1 mmol/L Low 3.3-5.1 [facility] Comment on above: Performed By: #### L 500.2500 ####[facility] [address] [place], [address] Sodium [Moles/Vol] 142 mmol/L Normal 133-145 [facility] Comment on above: Performed By: #### L 500.2500 ####[facility] [address] [place], [address] Urea nitrogen [Mass/Vol] 100 mg/dL High -19 [facility] Comment on above: Performed By: #### L 500.2500 ####[facility] [address] [place], [address] Basic Metabolic Profile (BMP )on 04-30-2025 BUN/CRE 26.6 RATIO High 10-20 [facility] Comment on above: Performed By: #### L 100.0100, L500.2500 ####[facility] [address] [place], [address] Calcium [Mass/Vol] 9.0 mg/dL Normal 7.6-11.0 [facility] Comment on above: Performed By: #### L 100.0100, L500.2500 ####[facility] [address] [place], [address] Chloride [Moles/Vol] 104 mmol/L Normal 98-108 [facility] Comment on above: Performed By: #### L 100.0100, L500.2500 ####[facility] [address] [place], [address] CO2 [Moles/Vol] 21.3 mmol/L Normal 21.0-32.0 [facility] Comment on above: Performed By: #### L 100.0100, L500.2500 ####[facility] [address] [place], [address] Creatinine [Mass/Vol] 3.68 mg/dL High 0.70-1.20 [facility] Comment on above: Performed By: #### L 100.0100, L500.2500 ####[facility] [address] [place], [address] ECRCL 15.70 ml/min Low 50-250 [facility] Comment on above: Performed By: #### L 100.0100, L500.2500 ####[facility] [address] [place], [address] GAP 16 High 5-15 [facility] Comment on above: Performed By: #### L 100.0100, L500.2500 ####[facility] [address] [place], [address] GFR/1.73 sq M.predicted among non-blacks MDRD (S/P/Bld) [Vol rate/Area] 16 mL/min/{1.73_m2} Low >60 [facility] Comment on above: Result Comment: mL/m in/1.73m2 CKD-EPI Creatinine Equation (2020) Performed By: #### L 100.0100, L500.2500 ####[facility] [address] [place], [address] Glucose [Mass/Vol] 102 mg/dL High 70-99 [facility] Comment on above: Performed By: #### L 100.0100, L500.2500 ####[facility] [address] [place], [address] Potassium [Moles/Vol] 3.6 mmol/L Normal 3.3-5.1 [facility] Comment on above: Performed By: #### L 100.0100, L500.2500 ####[facility] [address] [place], [address] Sodium [Moles/Vol] 141 mmol/L Normal 133-145 [facility] Comment on above: Performed By: #### L 100.0100, L500.2500 ####[facility] [address] [place], [address] Urea nitrogen [Mass/Vol] 98 mg/dL High 4-19 [facility] Comment on above: Performed By: #### L 100.0100, L500.2500 ####[facility] [address] [place], [address] CBC W/Diff, Automatedon 11-0 -2024 Absolute Lymph 0.35 X10 3/uL Low 0.83-4.51 [facility] Comment on above: Performed By: #### L 100.0100, L500.2500 ####[facility] [address] [place], [address] Absolute Neut 5.0 X10 3/uL Normal 2.0-7.7 [facility] Comment on above: Performed By: #### L 100.0100, L500.2500 ####[facility] [address] [place], [address] Basophils/100 WBC (Bld) 0.2 % Normal 0-1 [facility] Comment on above: Performed By: #### L 100.0100, L500.2500 ####[facility] [address] [place], [address] Eosinophils/100 WBC (Bld) 0.3 % Normal 0-5 [facility] Comment on above: Performed By: #### L 100.0100, L500.2500 ####[facility] [address] [place], [address] Erythrocyte distribution width (RBC) [Ratio] 13.9 % Normal 11.6-14.6 [facility] Comment on above: Performed By: #### L 100.0100, L500.2500 ####[facility] [address] [place], [address] Hematocrit (Bld) [Volume fraction] 27.8 % Low 40-54 [facility] Comment on above: Performed By: #### L 100.0100, L500.2500 ####[facility] [address] [place], [address] Hemoglobin (Bld) [Mass/Vol] 9.3 g/dL Low 13.0-16.5 [facility] Comment on above: Performed By: #### L 100.0100, L500.2500 ####[facility] [address] [place], [address] IG% 0.200 Normal 0.0-0.9 [facility] Comment on above: Result Comment: IG% - Immature Granulocytes (promyelocytes, myelocytes andmetamyelocytes) > 1% indicates that a LEFT SHIFT is Present. Performed By: #### L 100.0100, L500.2500 ####[facility] [address] [place], [address] Lymphocytes/100 WBC (Bld) 5.9 % Low 19-41 [facility] Comment on above: Performed By: #### L 100.0100, L500.2500 ####[facility] [address] [place], [address] MCH (RBC) [Entitic mass] 34.1 pg High 27.0-32.0 [facility] Comment on above: Performed By: #### L 100.0100, L500.2500 ####[facility] [address] [place], [address] MCHC (RBC) [Mass/Vol] 33.5 g/dL Normal 32-36 [facility] Comment on above: Performed By: #### L 100.0100, L500.2500 ####[facility] [address] [place], [address] MCV (RBC) [Entitic vol] 101.8 fL High 80-94 [facility] Comment on above: Performed By: #### L 100.0100, L500.2500 ####[facility] [address] [place], [address] Monocytes/100 WBC (Bld) 8.3 % Normal 0-[address] [facility] Comment on above: Performed By: #### L 100.0100, L500.2500 ####[facility] [address] [place], [address] Neutrophils/100 WBC (Bld) 85.1 % High 47-70 [facility] Comment on above: Performed By: #### L 100.0100, L500.2500 ####[facility] [address] [place], [address] Nucleated RBC (Bld) [#/Vol] 0 10*3/uL Normal 0-5 [facility] Comment on above: Performed By: #### L 100.0100, L500.2500 ####[facility] [address] [place], [address] Platelet mean volume (Bld) [Entitic vol] 10.2 fL Normal 6.2-12.0 [facility] Comment on above: Performed By: #### L 100.0100, L500.2500 ####[facility] [address] [place], [address] Platelets (Bld) [#/Vol] 118 10*3/uL Low 150-450 [facility] Comment on above: Performed By: #### L 100.0100, L500.2500 ####[facility] [address] [place], [address] RBC (Bld) [#/Vol] 2.73 10*6/uL Low 4.6-6.2 [facility] Comment on above: Performed By: #### L 100.0100, L500.2500 ####[facility] [address] [place], [address] RDW SD 52.4 fl High 35.1-43.9 [facility] Comment on above: Performed By: #### L 100.0100, L500.2500 ####[facility] [address] [place], [address] WBC (Bld) [#/Vol] 5.9 10*3/uL Normal 4.4-11.0 [facility] Comment on above: Performed By: #### L 100.0100, L500.2500 ####[facility] [address] [place], [address] Basic Metabolic Profile (BMP )on 04-29-2025 BUN/CRE 24.4 RATIO High 10-20 [facility] Comment on above: Performed By: #### L 100.0100, L500.2500 ####[facility] [address] [place], [address] Calcium [Mass/Vol] 8.5 mg/dL Normal 7.6-11.0 [facility] Comment on above: Performed By: #### L 100.0100, L500.2500 ####[facility] [address] [place], [address] Chloride [Moles/Vol] 107 mmol/L Normal 98-108 [facility] Comment on above: Performed By: #### L 100.0100, L500.2500 ####[facility] [address] [place], [address] CO2 [Moles/Vol] 20.1 mmol/L Low 21.0-32.0 [facility] Comment on above: Performed By: #### L 100.0100, L500.2500 ####[facility] [address] [place], [address] Creatinine [Mass/Vol] 3.64 mg/dL High 0.70-1.20 [facility] Comment on above: Performed By: #### L 100.0100, L500.2500 ####[facility] [address] [place], [address] ECRCL 15.88 ml/min Low 50-250 [facility] Comment on above: Performed By: #### L 100.0100, L500.2500 ####[facility] [address] [place], [address] GAP 15 Normal 5-15 [facility] Comment on above: Performed By: #### L 100.0100, L500.2500 ####[facility] [address] [place], [address] GFR/1.73 sq M.predicted among non-blacks MDRD (S/P/Bld) [Vol rate/Area] 16 mL/min/{1.73_m2} Low >60 [facility] Comment on above: Result Comment: mL/m in/1.73m2 CKD-EPI Creatinine Equation (2020) Performed By: #### L 100.0100, L500.2500 ####[facility] [address] [place], [address] Glucose [Mass/Vol] 103 mg/dL High 70-99 [facility] Comment on above: Performed By: #### L 100.0100, L500.2500 ####[facility] [address] [place], [address] Potassium [Moles/Vol] 4.4 mmol/L Normal 3.3-5.1 [facility] Comment on above: Performed By: #### L 100.0100, L500.2500 ####[facility] [address] [place], [address] Sodium [Moles/Vol] 141 mmol/L Normal 133-145 [facility] Comment on above: Performed By: #### L 100.0100, L500.2500 ####[facility] [address] [place], [address] Urea nitrogen [Mass/Vol] 89 mg/dL High 4-19 [facility] Comment on above: Performed By: #### L 100.0100, L500.2500 ####[facility] [address] [place], [address] CBC W/Diff, Automatedon 10-3 -2024 Absolute Lymph 0.42 X10 3/uL Low 0.83-4.51 [facility] Comment on above: Performed By: #### L 100.0100, L500.2500 ####[facility] [address] [place], [address] Absolute Neut 7.4 X10 3/uL Normal 2.0-7.7 [facility] Comment on above: Performed By: #### L 100.0100, L500.2500 ####[facility] [address] [place], [address] Basophils/100 WBC (Bld) 0.1 % Normal 0-1 [facility] Comment on above: Performed By: #### L 100.0100, L500.2500 ####[facility] [address] [place], [address] Eosinophils/100 WBC (Bld) 0.1 % Normal 0-5 [facility] Comment on above: Performed By: #### L 100.0100, L500.2500 ####[facility] [address] [place], [address] Erythrocyte distribution width (RBC) [Ratio] 14.2 % Normal 11.6-14.6 [facility] Comment on above: Performed By: #### L 100.0100, L500.2500 ####[facility] [address] [place], [address] Hematocrit (Bld) [Volume fraction] 28.5 % Low 40-54 [facility] Comment on above: Performed By: #### L 100.0100, L500.2500 ####[facility] [address] [place], [address] Hemoglobin (Bld) [Mass/Vol] 9.3 g/dL Low 13.0-16.5 [facility] Comment on above: Performed By: #### L 100.0100, L500.2500 ####[facility] [address] [place], [address] IG% 0.500 Normal 0.0-0.9 [facility] Comment on above: Result Comment: IG% - Immature Granulocytes (promyelocytes, myelocytes andmetamyelocytes) > 1% indicates that a LEFT SHIFT is Present. Performed By: #### L 100.0100, L500.2500 ####[facility] [address] [place], [address] Lymphocytes/100 WBC (Bld) 4.9 % Low 19-41 [facility] Comment on above: Performed By: #### L 100.0100, L500.2500 ####[facility] [address] [place], [address] MCH (RBC) [Entitic mass] 33.6 pg High 27.0-32.0 [facility] Comment on above: Performed By: #### L 100.0100, L500.2500 ####[facility] [address] [place], [address] MCHC (RBC) [Mass/Vol] 32.6 g/dL Normal 32-36 [facility] Comment on above: Performed By: #### L 100.0100, L500.2500 ####[facility] [address] [place], [address] MCV (RBC) [Entitic vol] 102.9 fL High 80-94 [facility] Comment on above: Performed By: #### L 100.0100, L500.2500 ####[facility] [address] [place], [address] Monocytes/100 WBC (Bld) 7.9 % Normal 0-[address] [facility] Comment on above: Performed By: #### L 100.0100, L500.2500 ####[facility] [address] [place], [address] Neutrophils/100 WBC (Bld) 86.5 % High 47-70 [facility] Comment on above: Performed By: #### L 100.0100, L500.2500 ####[facility] [address] [place], [address] Nucleated RBC (Bld) [#/Vol] 0 10*3/uL Normal 0-5 [facility] Comment on above: Performed By: #### L 100.0100, L500.2500 ####[facility] [address] [place], [address] Platelet mean volume (Bld) [Entitic vol] 10.2 fL Normal 6.2-12.0 [facility] Comment on above: Performed By: #### L 100.0100, L500.2500 ####[facility] [address] [place], [address] Platelets (Bld) [#/Vol] 137 10*3/uL Low 150-450 [facility] Comment on above: Performed By: #### L 100.0100, L500.2500 ####[facility] [address] [place], [address] RBC (Bld) [#/Vol] 2.77 10*6/uL Low 4.6-6.2 [facility] Comment on above: Performed By: #### L 100.0100, L500.2500 ####[facility] [address] [place], [address] RDW SD 53.7 fl High 35.1-43.9 [facility] Comment on above: Performed By: #### L 100.0100, L500.2500 ####[facility] [address] [place], [address] WBC (Bld) [#/Vol] 8.5 10*3/uL Normal 4.4-11.0 [facility] Comment on above: Performed By: #### L 100.0100, L500.2500 ####[facility] [facility] [address] [place], [address] Consultation - Surgicalon Consultation - Surgical Normal [facility] 12 Lead EKGon 04-28-2025 12 Lead EKG Normal [facility] Basic Metabolic Profile (BMP )on 04-28-2025 BUN/CRE 23.8 RATIO High 10-20 [facility] Comment on above: Performed By: #### L 500.2500, L100.0100, L501.2300, L501.5200 ####[facility] [address] [place], [address] Calcium [Mass/Vol] 8.8 mg/dL Normal 7.6-11.0 [facility] Comment on above: Performed By: #### L 500.2500, L100.0100, L501.2300, L501.5200 ####[facility] [address] [place], [address] Chloride [Moles/Vol] 107 mmol/L Normal 98-108 [facility] Comment on above: Performed By: #### L 500.2500, L100.0100, L501.2300, L501.5200 ####[facility] [address] [place], [address] CO2 [Moles/Vol] 20.5 mmol/L Low 21.0-32.0 [facility] Comment on above: Performed By: #### L 500.2500, L100.0100, L501.2300, L501.5200 ####[facility] [address] [place], [address] Creatinine [Mass/Vol] 3.44 mg/dL High 0.70-1.20 [facility] Comment on above: Performed By: #### L 500.2500, L100.0100, L501.2300, L501.5200 ####[facility] [address] [place], [address] ECRCL 16.80 ml/min Low 50-250 [facility] Comment on above: Performed By: #### L 500.2500, L100.0100, L501.2300, L501.5200 ####[facility] [address] [place], [address] GAP 13 Normal 5-15 [facility] Comment on above: Performed By: #### L 500.2500, L100.0100, L501.2300, L501.5200 ####[facility] [address] [place], [address] GFR/1.73 sq M.predicted among non-blacks MDRD (S/P/Bld) [Vol rate/Area] 17 mL/min/{1.73_m2} Low >60 [facility] Comment on above: Result Comment: mL/m in/1.73m2 CKD-EPI Creatinine Equation (2020) Performed By: #### L 500.2500, L100.0100, L501.2300, L501.5200 ####[facility] [address] [place], [address] Glucose [Mass/Vol] 134 mg/dL High 70-99 [facility] Comment on above: Performed By: #### L 500.2500, L100.0100, L501.2300, L501.5200 ####[facility] [address] [place], [address] Potassium [Moles/Vol] 4.8 mmol/L Normal 3.3-5.1 [facility] Comment on above: Performed By: #### L 500.2500, L100.0100, L501.2300, L501.5200 ####[facility] [address] [place], [address] Sodium [Moles/Vol] 141 mmol/L Normal 133-145 [facility] Comment on above: Performed By: #### L 500.2500, L100.0100, L501.2300, L501.5200 ####[facility] [address] [place], [address] Urea nitrogen [Mass/Vol] 82 mg/dL High 4-19 [facility] Comment on above: Performed By: #### L 500.2500, L100.0100, L501.2300, L501.5200 ####[facility] [address] [place], [address] CBC W/Diff, Automatedon 10-3 0-2025 Absolute Lymph 0.38 X10 3/uL Low 0.83-4.51 [facility] Comment on above: Performed By: #### L 500.2500, L100.0100, L501.2300, L501.5200 ####[facility] [address] [place], [address] Absolute Neut 9.9 X10 3/uL High 2.0-7.7 [facility] Comment on above: Performed By: #### L 500.2500, L100.0100, L501.2300, L501.5200 ####[facility] [address] [place], [address] Basophils/100 WBC (Bld) 0.1 % Normal 0-1 [facility] Comment on above: Performed By: #### L 500.2500, L100.0100, L501.2300, L501.5200 ####[facility] [address] [place], [address] Eosinophils/100 WBC (Bld) 0.0 % Normal 0-5 [facility] Comment on above: Performed By: #### L 500.2500, L100.0100, L501.2300, L501.5200 ####[facility] [address] [place], [address] Erythrocyte distribution width (RBC) [Ratio] 14.2 % Normal 11.6-14.6 [facility] Comment on above: Performed By: #### L 500.2500, L100.0100, L501.2300, L501.5200 ####[facility] [address] [place], [address] Hematocrit (Bld) [Volume fraction] 28.6 % Low 40-54 [facility] Comment on above: Performed By: #### L 500.2500, L100.0100, L501.2300, L501.5200 ####[facility] [address] [place], [address] Hemoglobin (Bld) [Mass/Vol] 9.3 g/dL Low 13.0-16.5 [facility] Comment on above: Performed By: #### L 500.2500, L100.0100, L501.2300, L501.5200 ####[facility] [address] [place], [address] IG% 0.600 Normal 0.0-0.9 [facility] Comment on above: Result Comment: IG% - Immature Granulocytes (promyelocytes, myelocytes andmetamyelocytes) > 1% indicates that a LEFT SHIFT is Present. Performed By: #### L 500.2500, L100.0100, L501.2300, L501.5200 ####[facility] [address] [place], [address] Lymphocytes/100 WBC (Bld) 3.4 % Low 19-41 [facility] Comment on above: Performed By: #### L 500.2500, L100.0100, L501.2300, L501.5200 ####[facility] [address] [place], [address] MCH (RBC) [Entitic mass] 33.5 pg High 27.0-32.0 [facility] Comment on above: Performed By: #### L 500.2500, L100.0100, L501.2300, L501.5200 ####[facility] [address] [place], [address] MCHC (RBC) [Mass/Vol] 32.5 g/dL Normal 32-36 [facility] Comment on above: Performed By: #### L 500.2500, L100.0100, L501.2300, L501.5200 ####[facility] [address] [place], [address] MCV (RBC) [Entitic vol] 102.9 fL High 80-94 [facility] Comment on above: Performed By: #### L 500.2500, L100.0100, L501.2300, L501.5200 ####[facility] [address] [place], [address] Monocytes/100 WBC (Bld) 7.4 % Normal 0-[address] [facility] Comment on above: Performed By: #### L 500.2500, L100.0100, L501.2300, L501.5200 ####[facility] [address] [place], [address] Neutrophils/100 WBC (Bld) 88.5 % High 47-70 [facility] Comment on above: Performed By: #### L 500.2500, L100.0100, L501.2300, L501.5200 ####[facility] [address] [place], [address] Nucleated RBC (Bld) [#/Vol] 0 10*3/uL Normal 0-5 [facility] Comment on above: Performed By: #### L 500.2500, L100.0100, L501.2300, L501.5200 ####[facility] [address] [place], [address] Platelet mean volume (Bld) [Entitic vol] 10.0 fL Normal 6.2-12.0 [facility] Comment on above: Performed By: #### L 500.2500, L100.0100, L501.2300, L501.5200 ####[facility] [address] [place], [address] Platelets (Bld) [#/Vol] 133 10*3/uL Low 150-450 [facility] Comment on above: Performed By: #### L 500.2500, L100.0100, L501.2300, L501.5200 ####[facility] [address] [place], [address] RBC (Bld) [#/Vol] 2.78 10*6/uL Low 4.6-6.2 [facility] Comment on above: Performed By: #### L 500.2500, L100.0100, L501.2300, L501.5200 ####[facility] [address] [place], [address] RDW SD 53.5 fl High 35.1-43.9 [facility] Comment on above: Performed By: #### L 500.2500, L100.0100, L501.2300, L501.5200 ####[facility] [address] [place], [address] WBC (Bld) [#/Vol] 11.1 10*3/uL High 4.4-11.0 [facility] Comment on above: Performed By: #### L 500.2500, L100.0100, L501.2300, L501.5200 ####[facility] [address] [place], [address] Magnesiumon 04-28-2025 Magnesium [Mass/Vol] 2.6 mg/dL High 1.5-2.2 [facility] Comment on above: Performed By: #### L 500.2500, L100.0100, L501.2300, L501.5200 ####[facility] [address] [place], [address] Phosphoruson 04-28-2025 Phosphate [Mass/Vol] 4.9 mg/dL High 2.7-4.5 [facility] Comment on above: Performed By: #### L 500.2500, L100.0100, L501.2300, L501.5200 ####[facility] [address] [place], [address] Basic Metabolic Profile (BMP )on 04-27-2025 BUN/CRE 22.4 RATIO High 10-20 [facility] Comment on above: Performed By: #### L 500.4100, L100.0500, L500.2500 ####[facility] [address] [place], [address] Calcium [Mass/Vol] 9.2 mg/dL Normal 7.6-11.0 [facility] Comment on above: Performed By: #### L 500.4100, L100.0500, L500.2500 ####[facility] [address] [place], [address] Chloride [Moles/Vol] 106 mmol/L Normal 98-108 [facility] Comment on above: Performed By: #### L 500.4100, L100.0500, L500.2500 ####[facility] [address] [place], [address] CO2 [Moles/Vol] 20.1 mmol/L Low 21.0-32.0 [facility] Comment on above: Performed By: #### L 500.4100, L100.0500, L500.2500 ####[facility] [address] [place], [address] Creatinine [Mass/Vol] 2.96 mg/dL High 0.70-1.20 [facility] Comment on above: Performed By: #### L 500.4100, L100.0500, L500.2500 ####[facility] [address] [place], [address] ECRCL 19.52 ml/min Low 50-250 [facility] Comment on above: Performed By: #### L 500.4100, L100.0500, L500.2500 ####[facility] [address] [place], [address] GAP 13 Normal 5-15 [facility] Comment on above: Performed By: #### L 500.4100, L100.0500, L500.2500 ####[facility] [address] [place], [address] GFR/1.73 sq M.predicted among non-blacks MDRD (S/P/Bld) [Vol rate/Area] 20 mL/min/{1.73_m2} Low >60 [facility] Comment on above: Result Comment: mL/m in/1.73m2 CKD-EPI Creatinine Equation (2020) Performed By: #### L 500.4100, L100.0500, L500.2500 ####[facility] [address] [place], [address] Glucose [Mass/Vol] 222 mg/dL High 70-99 [facility] Comment on above: Performed By: #### L 500.4100, L100.0500, L500.2500 ####[facility] [address] [place], [address] Potassium [Moles/Vol] 4.9 mmol/L Normal 3.3-5.1 [facility] Comment on above: Performed By: #### L 500.4100, L100.0500, L500.2500 ####[facility] [address] [place], [address] Sodium [Moles/Vol] 139 mmol/L Normal 133-145 [facility] Comment on above: Performed By: #### L 500.4100, L100.0500, L500.2500 ####[facility] [address] [place], [address] Urea nitrogen [Mass/Vol] 66 mg/dL High 4-19 [facility] Comment on above: Performed By: #### L 500.4100, L100.0500, L500.2500 ####[facility] [address] [place], [address] CBC-Complete Blood Cnt No Di ffon 04-27-2025 Erythrocyte distribution width (RBC) [Ratio] 13.6 % Normal 11.6-14.6 [facility] Comment on above: Performed By: #### L 500.4100, L100.0500, L500.2500 ####[facility] [address] [place], [address] Hematocrit (Bld) [Volume fraction] 28.6 % Low 40-54 [facility] Comment on above: Performed By: #### L 500.4100, L100.0500, L500.2500 ####[facility] [address] [place], [address] Hemoglobin (Bld) [Mass/Vol] 9.5 g/dL Low 13.0-16.5 [facility] Comment on above: Performed By: #### L 500.4100, L100.0500, L500.2500 ####[facility] [address] [place], [address] MCH (RBC) [Entitic mass] 33.9 pg High 27.0-32.0 [facility] Comment on above: Performed By: #### L 500.4100, L100.0500, L500.2500 ####[facility] [address] [place], [address] MCHC (RBC) [Mass/Vol] 33.2 g/dL Normal 32-36 [facility] Comment on above: Performed By: #### L 500.4100, L100.0500, L500.2500 ####[facility] [address] [place], [address] MCV (RBC) [Entitic vol] 102.1 fL High 80-94 [facility] Comment on above: Performed By: #### L 500.4100, L100.0500, L500.2500 ####[facility] [address] [place], [address] Platelet mean volume (Bld) [Entitic vol] 10.3 fL Normal 6.2-12.0 [facility] Comment on above: Performed By: #### L 500.4100, L100.0500, L500.2500 ####[facility] [address] [place], [address] Platelets (Bld) [#/Vol] 138 10*3/uL Low 150-450 [facility] Comment on above: Performed By: #### L 500.4100, L100.0500, L500.2500 ####[facility] [address] [place], [address] RBC (Bld) [#/Vol] 2.80 10*6/uL Low 4.6-6.2 [facility] Comment on above: Performed By: #### L 500.4100, L100.0500, L500.2500 ####[facility] [address] [place], [address] RDW SD 51.5 fl High 35.1-43.9 [facility] Comment on above: Performed By: #### L 500.4100, L100.0500, L500.2500 ####[facility] [address] [place], [address] WBC (Bld) [#/Vol] 4.5 10*3/uL Normal 4.4-11.0 [facility] Comment on above: Performed By: #### L 500.4100, L100.0500, L500.2500 ####[facility] [address] [place], [address] Consultation - Nephrologyon 04-27-2025 Consultation - Nephrology Normal [facility] Lipid Profileon 04-27-2025 CHOL:HDL 1.81 Normal [facility] Comment on above: Performed By: #### L 500.4100, L100.0500, L500.2500 ####[facility] [address] [place], [address] Cholesterol [Mass/Vol] 157 mg/dL Normal <=200 [facility] Comment on above: Result Comment: Chol esterol level, Desirable <200 mg/dLBorderline high cholesterol 200-239 mg/dLHigh cholesterol >=240 mg/dLRecommendations of the NCEP Adult Treatment Panel for thefollowing risk-cutoff thresholds for the [place] [facility]. Performed By: #### L 500.4100, L100.0500, L500.2500 ####[facility] [address] [place], [address] Cholesterol in HDL [Mass/Vol] 87 mg/dL Normal [facility] Comment on above: Result Comment: Anne Marie onal Cholesterol Education Program (NCEP) guidelines:<40 mg/dL: Low HDL-cholesterol (major risk factor for CHD)>= 60 mg/dL: High HDL-cholesterol (negative risk factor forCHD)HDL-cholesterol is affected by a number of factors, e.g.smoking, exercise, hormones, sex and age. Performed By: #### L 500.4100, L100.0500, L500.2500 ####[facility] [address] [place], [address] Cholesterol in LDL [Mass/Vol] 62 mg/dL Normal [facility] Comment on above: Result Comment: Bord wurkdb=194-402 mg/dL Higher Gybx=749 mg/dL or greaterSampson Equation 2020 for LDL-C Performed By: #### L 500.4100, L100.0500, L500.2500 ####[facility] [address] [place], [address] Cholesterol in VLDL [Mass/Vol] 7 mg/dL Normal 5-40 [facility] Comment on above: Performed By: #### L 500.4100, L100.0500, L500.2500 ####[facility] [address] [place], [address] Triglyceride [Mass/Vol] 34 mg/dL Normal [facility] Comment on above: Result Comment: The drugs N-Acetylcysteine and Metamizole may falselydepress this assay.Normal range: <150 mg/dLBorderline High: 150-199 mg/dLHigh: 200-499 mg/dLVery High: >500 mg/dL Performed By: #### L 500.4100, L100.0500, L500.2500 ####[facility] [address] [place], [address] Protein+Creatinine Ratio,Uri neon 04-27-2025 PROT:CRE RATIO 695 mg/g CRE High 0-200 [facility] Comment on above: Performed By: #### L 400.0001, L501.0900 ####[facility] [address] [place], [address] Protein (U) [Mass/Vol] 61.9 mg/dL High 0.0-12.0 [facility] Comment on above: Performed By: #### L 400.0001, L501.0900 ####[facility] [address] [place], [address] UR CREAT 89.10 mg/dL Normal 39.00-259. 00 [facility] Comment on above: Performed By: #### L 400.0001, L501.0900 ####[facility] [address] [place], [address] Urinalysis, Completeon 04-27 EPI,SQUAMOUS 0-5 SEEN Normal 0-5 [facility] Comment on above: Order Comment: CLEAN CATCH Performed By: #### L 400.0001, L501.0900 ####[facility] [address] [place], [address] RBC 0-5 SEEN Normal 0-5 [facility] Comment on above: Order Comment: CLEAN CATCH Performed By: #### L 400.0001, L501.0900 ####[facility] [address] [place], [address] WBC 0-5 SEEN Normal 0-5 [facility] Comment on above: Order Comment: CLEAN CATCH Performed By: #### L 400.0001, L501.0900 ####[facility] [address] [place], [address] BACTERIA 0 SEEN Normal None Seen [facility] Comment on above: Order Comment: CLEAN CATCH Performed By: #### L 400.0001, L501.0900 ####[facility] [address] [place], [address] Mucus Ql (Urine sed) 0 SEEN Normal [facility] Comment on above: Order Comment: CLEAN CATCH Performed By: #### L 400.0001, L501.0900 ####[facility] [address] [place], [address] Basic Metabolic Profile (BMP )on 04-26-2025 BUN/CRE 21.1 RATIO High 10-20 [facility] Comment on above: Performed By: #### L 100.0100, L500.2500 ####[facility] [address] [place], [address] Calcium [Mass/Vol] 8.9 mg/dL Normal 7.6-11.0 [facility] Comment on above: Performed By: #### L 100.0100, L500.2500 ####[facility] [address] [place], [address] Chloride [Moles/Vol] 107 mmol/L Normal 98-108 [facility] Comment on above: Performed By: #### L 100.0100, L500.2500 ####[facility] [address] [place], [address] CO2 [Moles/Vol] 20.1 mmol/L Low 21.0-32.0 [facility] Comment on above: Performed By: #### L 100.0100, L500.2500 ####[facility] [address] [place], [address] Creatinine [Mass/Vol] 2.47 mg/dL High 0.70-1.20 [facility] Comment on above: Performed By: #### L 100.0100, L500.2500 ####[facility] [address] [place], [address] ECRCL 24.13 ml/min Low 50-250 [facility] Comment on above: Performed By: #### L 100.0100, L500.2500 ####[facility] [address] [place], [address] GAP 14 Normal 5-15 [facility] Comment on above: Performed By: #### L 100.0100, L500.2500 ####[facility] [address] [place], [address] GFR/1.73 sq M.predicted among non-blacks MDRD (S/P/Bld) [Vol rate/Area] 25 mL/min/{1.73_m2} Low >60 [facility] Comment on above: Result Comment: mL/m in/1.73m2 CKD-EPI Creatinine Equation (2020) Performed By: #### L 100.0100, L500.2500 ####[facility] [address] [place], [address] Glucose [Mass/Vol] 189 mg/dL High 70-99 [facility] Comment on above: Performed By: #### L 100.0100, L500.2500 ####[facility] [address] [place], [address] Potassium [Moles/Vol] 4.4 mmol/L Normal 3.3-5.1 [facility] Comment on above: Performed By: #### L 100.0100, L500.2500 ####[facility] [address] [place], [address] Sodium [Moles/Vol] 141 mmol/L Normal 133-145 [facility] Comment on above: Performed By: #### L 100.0100, L500.2500 ####[facility] [address] [place], [address] Urea nitrogen [Mass/Vol] 52 mg/dL High 4-19 [facility] Comment on above: Performed By: #### L 100.0100, L500.2500 ####[facility] [address] [place], [address] CBC W/Diff, Automatedon 10-2 Absolute Lymph 1.21 X10 3/uL Normal 0.83-4.51 [facility] Comment on above: Performed By: #### L 100.0100, L500.2500 ####[facility] [address] [place], [address] Absolute Neut 7.4 X10 3/uL Normal 2.0-7.7 [facility] Comment on above: Performed By: #### L 100.0100, L500.2500 ####[facility] [address] [place], [address] Basophils/100 WBC (Bld) 0.4 % Normal 0-1 [facility] Comment on above: Performed By: #### L 100.0100, L500.2500 ####[facility] [address] [place], [address] Eosinophils/100 WBC (Bld) 0.4 % Normal 0-5 [facility] Comment on above: Performed By: #### L 100.0100, L500.2500 ####[facility] [address] [place], [address] Erythrocyte distribution width (RBC) [Ratio] 13.7 % Normal 11.6-14.6 [facility] Comment on above: Performed By: #### L 100.0100, L500.2500 ####[facility] [address] [place], [address] Hematocrit (Bld) [Volume fraction] 33.1 % Low 40-54 [facility] Comment on above: Performed By: #### L 100.0100, L500.2500 ####[facility] [address] [place], [address] Hemoglobin (Bld) [Mass/Vol] 10.9 g/dL Low 13.0-16.5 [facility] Comment on above: Performed By: #### L 100.0100, L500.2500 ####[facility] [address] [place], [address] IG% 0.400 Normal 0.0-0.9 [facility] Comment on above: Result Comment: IG% - Immature Granulocytes (promyelocytes, myelocytes andmetamyelocytes) > 1% indicates that a LEFT SHIFT is Present. Performed By: #### L 100.0100, L500.2500 ####[facility] [address] [place], [address] Lymphocytes/100 WBC (Bld) 12.4 % Low 19-41 [facility] Comment on above: Performed By: #### L 100.0100, L500.2500 ####[facility] [address] [place], [address] MCH (RBC) [Entitic mass] 34.7 pg High 27.0-32.0 [facility] Comment on above: Performed By: #### L 100.0100, L500.2500 ####[facility] [address] [place], [address] MCHC (RBC) [Mass/Vol] 32.9 g/dL Normal 32-36 [facility] Comment on above: Performed By: #### L 100.0100, L500.2500 ####[facility] [address] [place], [address] MCV (RBC) [Entitic vol] 105.4 fL High 80-94 [facility] Comment on above: Performed By: #### L 100.0100, L500.2500 ####[facility] [address] [place], [address] Monocytes/100 WBC (Bld) 10.6 % High 0-10 [facility] Comment on above: Performed By: #### L 100.0100, L500.2500 ####[facility] [address] [place], [address] Neutrophils/100 WBC (Bld) 75.8 % High 47-70 [facility] Comment on above: Performed By: #### L 100.0100, L500.2500 ####[facility] [address] [place], [address] Nucleated RBC (Bld) [#/Vol] 0 10*3/uL Normal 0-5 [facility] Comment on above: Performed By: #### L 100.0100, L500.2500 ####[facility] [address] [place], [address] Platelet mean volume (Bld) [Entitic vol] 9.9 fL Normal 6.2-12.0 [facility] Comment on above: Performed By: #### L 100.0100, L500.2500 ####[facility] [address] [place], [address] Platelets (Bld) [#/Vol] 164 10*3/uL Normal 150-450 [facility] Comment on above: Performed By: #### L 100.0100, L500.2500 ####[facility] [address] [place], [address] RBC (Bld) [#/Vol] 3.14 10*6/uL Low 4.6-6.2 [facility] Comment on above: Performed By: #### L 100.0100, L500.2500 ####[facility] [address] [place], [address] RDW SD 53.0 fl High 35.1-43.9 [facility] Comment on above: Performed By: #### L 100.0100, L500.2500 ####[facility] [address] [place], [address] WBC (Bld) [#/Vol] 9.8 10*3/uL Normal 4.4-11.0 [facility] Comment on above: Performed By: #### L 100.0100, L500.2500 ####[facility] [address] [place], [address] Chest 1 View (Portable)on Chest 1 View (Portable) Normal [facility] Echo Complete W/ Contraston 04-26-2025 Echo Complete W/ Contrast Normal [facility] Emergency Department Summary on 04-26-2025 Emergency Department Summary Normal [facility] H AND P Exam - Hospitaliston 04-26-2025 H&P Exam - Hospitalist Normal [facility] Hemoglobin A1con 04-26-2025 HbA1c (Bld) [Mass fraction] 4.9 % Normal <=5.6 [facility] Comment on above: Order Comment: Comme nts: ok to add on Result Comment: Norm al < 5.7 % Prediabetic 5.7 - 6.4 % Diabetic >or= 6.5 % Please note range changes. Performed By: #### L 501.9985 ####[facility] [address] [place], [place], [address] L501.4021on 04-26-2025 Trop T High Sen 84 ng/L Invalid Interpretation Code <=22 [facility] Comment on above: Result Comment: Crit ical Result(s) Called at: 1310 04/26/2025 by: TIERRA??Results read back by same. Performed By: #### L 503.750, L501.4021 ####[facility] [address] [place], [address] Pro- Brain NATRIURETIC PEPTI Otis 04-26-2025 Natriuretic peptide B (Bld) [Mass/Vol] 80220 pg/mL High <=1800 [facility] Comment on above: Result Comment: Hear t Failure Unlikely: < 300 pg/mLHeart Failure Likely< 50 Years: > 450 pg/mL50-75 Years: > 900 pg/mL>75 Years: > 1800 pg/mL Performed By: #### L 503.7505, L501.4021 ####[facility] [address] [place], [place], [address] Troponin T HS 2 HRon 025 Trop T High Sen 79 ng/L Invalid Interpretation Code <=22 [facility] Comment on above: Result Comment: Crit ical Result(s) Called at: 1527 04/26/2025 by: CHANDANA??Results read back by same. Performed By: #### L 499.0042 ####[facility] [address] [place], [address] Troponin T HS 4 HRon 025 Trop T High Sen Normal <=22 [facility] Comment on above: Result Comment: Canc elled via OM: Order cancelled - Patient discharged Performed By: #### L 499.0043 ####[facility] [address] [place], [place], [address] Absolute lymphocyte countOrd ered By: [facility] on 03-03-2025 Lymphocytes Auto (Unsp spec) [#/Vol] 0.85 10*3/uL 0.83-4.51 [facility] Anion gap in Serum or Plasma [facility]: [facility] Anion gap [Moles/Vol] 14 mmol/L 5-15 [facility] Automated lymphocyte count a s percentage of total leukocytesOrdered By: [facility] on 03-03-2025 Lymphocytes/100 WBC Auto (Unsp spec) 20.1 % 19- [facility] BUN/creatinine ratioOrdered By: [facility] on 03-03-2025 Urea nitrogen/Creatinine [Mass ratio] 19.4 mg/mg 10- [facility] Basophil percentageOrdered B y: [facility]ieu [facility] Basophils/100 WBC (Bld) 0.5 % 0-1 [facility] Bilirubin, totalOrdered By: [facility] on 03-03-2025 Bilirubin [Mass/Vol] 0.49 mg/dL 0.00-1.30 [facility] CBC W/Diff, Automatedon Absolute Lymph 0.85 X10 3/uL Normal 0.83-4.51 [facility] Comment on above: Performed By: #### L 501.2300, L503.6550, L504.2610, L100.0100 ####[facility] [address] [place], [address] Absolute Neut 2.5 X10 3/uL Normal 2.0-7.7 [facility] Comment on above: Performed By: #### L 501.2300, L503.6550, L504.2610, L100.0100 ####[facility] [address] [place], [address] Basophils/100 WBC (Bld) 0.5 % Normal 0-1 [facility] Comment on above: Performed By: #### L 501.2300, L503.6550, L504.2610, L100.0100 ####[facility] [address] [place], [address] Eosinophils/100 WBC (Bld) 11.6 % High 0-5 [facility] Comment on above: Performed By: #### L 501.2300, L503.6550, L504.2610, L100.0100 ####[facility] [address] [place], [address] Erythrocyte distribution width (RBC) [Ratio] 12.6 % Normal 11.6-14.6 [facility] Comment on above: Performed By: #### L 501.2300, L503.6550, L504.2610, L100.0100 ####[facility] [address] [place], [address] Hematocrit (Bld) [Volume fraction] 33.2 % Low 40-54 [facility] Comment on above: Performed By: #### L 501.2300, L503.6550, L504.2610, L100.0100 ####[facility] [address] [place], [address] Hemoglobin (Bld) [Mass/Vol] 11.0 g/dL Low 13.0-16.5 [facility] Comment on above: Performed By: #### L 501.2300, L503.6550, L504.2610, L100.0100 ####[facility] [address] [place], [address] IG% 0.200 Normal 0.0-0.9 [facility] Comment on above: Result Comment: IG% - Immature Granulocytes (promyelocytes, myelocytes andmetamyelocytes) > 1% indicates that a LEFT SHIFT is Present. Performed By: #### L 501.2300, L503.6550, L504.2610, L100.0100 ####[facility] [address] [place], [address] Lymphocytes/100 WBC (Bld) 20.1 % Normal 19-41 [facility] Comment on above: Performed By: #### L 501.2300, L503.6550, L504.2610, L100.0100 ####[facility] [address] [place], [address] MCH (RBC) [Entitic mass] 34.6 pg High 27.0-32.0 [facility] Comment on above: Performed By: #### L 501.2300, L503.6550, L504.2610, L100.0100 ####[facility] [address] [place], [address] MCHC (RBC) [Mass/Vol] 33.1 g/dL Normal 32-36 [facility] Comment on above: Performed By: #### L 501.2300, L503.6550, L504.2610, L100.0100 ####[facility] [address] [place], [address] MCV (RBC) [Entitic vol] 104.4 fL High 80-94 [facility] Comment on above: Performed By: #### L 501.2300, L503.6550, L504.2610, L100.0100 ####[facility] [address] [place], [address] Monocytes/100 WBC (Bld) 9.5 % Normal 0-10 [facility] Comment on above: Performed By: #### L 501.2300, L503.6550, L504.2610, L100.0100 ####[facility] [address] [place], [address] Neutrophils/100 WBC (Bld) 58.1 % Normal 47-70 [facility] Comment on above: Performed By: #### L 501.2300, L503.6550, L504.2610, L100.0100 ####[facility] [address] [place], [address] Nucleated RBC (Bld) [#/Vol] 0 10*3/uL Normal 0-5 [facility] Comment on above: Performed By: #### L 501.2300, L503.6550, L504.2610, L100.0100 ####[facility] [address] [place], [address] Platelet mean volume (Bld) [Entitic vol] 9.1 fL Normal 6.2-12.0 [facility] Comment on above: Performed By: #### L 501.2300, L503.6550, L504.2610, L100.0100 ####[facility] [address] [place], [address] Platelets (Bld) [#/Vol] 141 10*3/uL Low 150-450 [facility] Comment on above: Performed By: #### L 501.2300, L503.6550, L504.2610, L100.0100 ####[facility] [address] [place], [address] RBC (Bld) [#/Vol] 3.18 10*6/uL Low 4.6-6.2 [facility] Comment on above: Performed By: #### L 501.2300, L503.6550, L504.2610, L100.0100 ####[facility] [address] [place], [address] RDW SD 48.6 fl High 35.1-43.9 [facility] Comment on above: Performed By: #### L 501.2300, L503.6550, L504.2610, L100.0100 ####[facility] [address] [place], [address] WBC (Bld) [#/Vol] 4.2 10*3/uL Low 4.4-11.0 [facility] Comment on above: Performed By: #### L 501.2300, L503.6550, L504.2610, L100.0100 ####[facility] [address] [place], [address] Carbon dioxide, total [Moles /volume] in Central venous bloodOrdered By: Mathieu Mcintyre on 03-03-2025 CO2 [Moles/Vol] 19.9 mmol/L Low 21.0-32.0 [facility] Chloride assayOrdered By: Grace Mcintyre on 03-03-2025 Chloride [Moles/Vol] 105 mmol/L 98-108 [facility] Comprehensive Metabolic Prof ilon 03-03-2025 Albumin [Mass/Vol] 4.6 g/dL Normal 3.4-4.8 [facility] Comment on above: Performed By: #### L 503.6030, L500.4050, L501.5200, L503.0106 ####[facility] [address] [place], [address] Albumin/Globulin [Mass ratio] 2.0 {ratio} Normal 0.9-2.4 [facility] Comment on above: Performed By: #### L 503.6030, L500.4050, L501.5200, L503.0106 ####[facility] [address] [place], [address] ALK PHOS 85 U/L Normal 40-129 [facility] Comment on above: Performed By: #### L 503.6030, L500.4050, L501.5200, L503.0106 ####[facility] [address] [place], [address] ALT [Catalytic activity/Vol] 9 U/L Normal <=46 [facility] Comment on above: Performed By: #### L 503.6030, L500.4050, L501.5200, L503.0106 ####[facility] [address] [place], [address] AST [Catalytic activity/Vol] 15 U/L Normal <=37 [facility] Comment on above: Performed By: #### L 503.6030, L500.4050, L501.5200, L503.0106 ####[facility] [address] [place], [address] Bilirubin [Mass/Vol] 0.49 mg/dL Normal 0.00-1.30 [facility] Comment on above: Performed By: #### L 503.6030, L500.4050, L501.5200, L503.0106 ####[facility] [address] [place], [address] BUN/CRE 19.4 RATIO Normal 10-20 [facility] Comment on above: Performed By: #### L 503.6030, L500.4050, L501.5200, L503.0106 ####[facility] [address] [place], [address] Calcium [Mass/Vol] 9.3 mg/dL Normal 7.6-11.0 [facility] Comment on above: Performed By: #### L 503.6030, L500.4050, L501.5200, L503.0106 ####[facility] [address] [place], [address] Chloride [Moles/Vol] 105 mmol/L Normal 98-108 [facility] Comment on above: Performed By: #### L 503.6030, L500.4050, L501.5200, L503.0106 ####[facility] [address] [place], [address] CO2 [Moles/Vol] 19.9 mmol/L Low 21.0-32.0 [facility] Comment on above: Performed By: #### L 503.6030, L500.4050, L501.5200, L503.0106 ####[facility] [address] [place], [address] Creatinine [Mass/Vol] 2.36 mg/dL High 0.70-1.20 [facility] Comment on above: Performed By: #### L 503.6030, L500.4050, L501.5200, L503.0106 ####[facility] [address] [place], [address] ECRCL 25.26 ml/min Low 50-250 [facility] Comment on above: Performed By: #### L 503.6030, L500.4050, L501.5200, L503.0106 ####[facility] [address] [place], [address] GAP 14 Normal 5-15 [facility] Comment on above: Performed By: #### L 503.6030, L500.4050, L501.5200, L503.0106 ####[facility] [address] [place], [address] GFR/1.73 sq M.predicted among non-blacks MDRD (S/P/Bld) [Vol rate/Area] 27 mL/min/{1.73_m2} Low >60 [facility] Comment on above: Result Comment: mL/m in/1.73m2 CKD-EPI Creatinine Equation (2020) Performed By: #### L 503.6030, L500.4050, L501.5200, L503.0106 ####[facility] [address] [place], [address] Globulin (S) [Mass/Vol] 2.3 g/dL Normal 2.2-4.[address] [facility] Comment on above: Performed By: #### L 503.6030, L500.4050, L501.5200, L503.0106 ####[facility] [address] [place], [address] Glucose [Mass/Vol] 91 mg/dL Normal 70-99 [facility] Comment on above: Performed By: #### L 503.6030, L500.4050, L501.5200, L503.0106 ####[facility] [address] [place], [address] Potassium [Moles/Vol] 4.8 mmol/L Normal 3.3-5.1 [facility] Comment on above: Performed By: #### L 503.6030, L500.4050, L501.5200, L503.0106 ####[facility] [address] [place], [address] Sodium [Moles/Vol] 139 mmol/L Normal 133-145 [facility] Comment on above: Performed By: #### L 503.6030, L500.4050, L501.5200, L503.0106 ####[facility] [address] [place], [address] T PROT 6.8 g/dL Normal 5.9-8.4 [facility] Comment on above: Performed By: #### L 503.6030, L500.4050, L501.5200, L503.0106 ####[facility] [address] [place], [address] Urea nitrogen [Mass/Vol] 46 mg/dL High 4-19 [facility] Comment on above: Performed By: #### L 503.6030, L500.4050, L501.5200, L503.0106 ####[facility] [address] [place], [place], [address] Eosinophil percentageOrdered By: [facility] Eosinophils/100 WBC (Bld) 11.6 % High 0-5 [facility] Erythrocyte distribution wid th ratioOrdered By: [facility] on 03-03-2025 Erythrocyte distribution width (RBC) [Ratio] 12.6 % 11.6-14.6 [facility] Erythrocyte distribution wid th standard deviationOrdered By: [facility] on 03-03-2025 Erythrocyte distribution width (RBC) [Ratio] 48.6 fl High 35.1-43.9 [facility] Ferritinon 03-03-2025 Ferritin [Mass/Vol] 769 ng/mL High 37-417 [facility] Comment on above: Performed By: #### L 501.2300, L503.6550, L504.2610, L100.0100 ####[facility] [address] [place], [place], [address] Glomerular filtration rate ( GFR) estimation/1.73 sq m using serum, plasma, or whole bOrdered By: [facility] on 03-03-2025 GFR/1.73 sq M.predicted among non-blacks MDRD (S/P/Bld) [Vol rate/Area] 27 mL/min/{1.73_m2} Low >60 [facility] Hematocrit Auto (Bld) [Volum e fraction]Ordered By: Mathieu Mcintyre on 03-03-2025 Hematocrit (Bld) [Volume fraction] 33.2 % Low 40-54 [facility] Hemoglobin measurementOrdere d By: Mathieu Mcintyre on 03-03-2025 Hemoglobin (Bld) [Mass/Vol] 11.0 g/dL Low 13.0-16.5 [facility] Immature granulocytes/100 WB C Auto (Bld)Ordered By: Mathieu Mcintyre on 03-03-2025 Immature granulocytes/100 WBC (Bld) 0.200 % 0.0-0.9 [facility] Iron measurement (mass/mass) Ordered By: Mathieu Mcintyre on 03-03-2025 Iron (Unsp spec) [Mass/Mass] 73 ug/dL 65-175 [facility] Iron+Iron Binding Capacityon 03-03-2025 TIBC 230 ug/dL Low 250-450 [facility] Comment on above: Performed By: #### L 503.6030, L500.4050, L501.5200, L503.0106 ####[facility] [address] [place], [address] LDHon 03-03-2025 LDH 166 U/L Normal 87-241 [facility] Comment on above: Order Comment: 1 Performed By: #### L 501.2300, L503.6550, L504.2610, L100.0100 ####[facility] [address] [place], [address] MCV (mean corpuscular volume ) determinationOrdered By: Mathieu Mcintyre on 03-03-2025 MCV (RBC) [Entitic vol] 104.4 fL High 80-94 [facility] Magnesiumon 03-03-2025 Magnesium [Mass/Vol] 2.3 mg/dL High 1.5-2.2 [facility] Comment on above: Performed By: #### L 503.6030, L500.4050, L501.5200, L503.0106 ####[facility] [address] [place], [address] Magnesium measurement (mass/ volume)Ordered By: Mathieu Mcintyre on 03-03-2025 Magnesium (Unsp spec) [Mass/Vol] 2.3 mg/dL High 1.5-2.2 [facility] Mean corpuscular hemoglobin (MCH) determinationOrdered By: Mathieu Mcintyre on 03-03-2025 MCH (RBC) [Entitic mass] 34.6 pg High 27.0-32.0 [facility] Monocyte percentageOrdered B y: Mathieu Mcintyre on 03-03-2025 Monocytes/100 WBC (Bld) 9.5 % 0-10 [facility] Neutrophil percentageOrdered By: Mathieu Mcintyre on 03-03-2025 Neutrophils/100 WBC (Bld) 58.1 % 47-70 [facility] No Panel InformationOrdered By: Mathieu Mcintyre on 03-03-2025 15 U/L <38 [facility] 157 ug/dL Low 228-428 [facility] Oncology Visit Reporton Oncology Visit Report Normal [facility] Phosphoruson 03-03-2025 Phosphate [Mass/Vol] 3.8 mg/dL Normal 2.7-4.5 [facility] Comment on above: Performed By: #### L 501.2300, L503.6550, L504.2610, L100.0100 ####[facility] [address] [place], [place], [address] Platelet countOrdered By: Grace Mcintyre on 03-03-2025 Platelets (Bld) [#/Vol] 141 10*3/uL Low 150-450 [facility] Potassium measurement (mass/ volume)Ordered By: Mathieu Mcintyre on 03-03-2025 Potassium (Unsp spec) [Mass/Vol] 4.8 mmol/L 3.3-5.1 [facility] RBC Auto (Bld) [#/Vol]Ordere d By: Mathieu Mcintyre on 03-03-2025 RBC (Bld) [#/Vol] 3.18 10*6/uL Low 4.6-6.2 [facility] Serum creatinine measurement (mass/volume)Ordered By: Mathieu Mcintyre on 03-03-2025 Creatinine [Mass/Vol] 2.36 mg/dL High 0.70-1.20 [facility] Serum globulin measurementOr dered By: Mathieu Mcintyre on 03-03-2025 Globulin (S) [Mass/Vol] 2.3 g/dL 2.2-4.2 [facility] Serum glucose measurement (m ass/volume)Ordered By: Mathieu Mcintyre on 03-03-2025 Glucose [Mass/Vol] 91 mg/dL 70-99 [facility] Serum or plasma alanine sanchez otransferase (ALT) measurementOrdered By: Mathieu Mcintyre on 03-03-2025 ALT [Catalytic activity/Vol] 9 U/L <47 [facility] Serum or plasma albumin elvia urement (mass/volume)Ordered By: Mathieu Mcintyre on 03-03-2025 Albumin [Mass/Vol] 4.6 g/dL 3.4-4.8 [facility] Serum or plasma albumin/glob ulin mass ratioOrdered By: Mathieu Mcintyre on 03-03-2025 Albumin/Globulin [Mass ratio] 2.0 {ratio} 0.9-2.4 [facility] Serum or plasma alkaline bonnie sphatase measurementOrdered By: Mathieu Mcintyre on 03-03-2025 ALP [Catalytic activity/Vol] 85 U/L 40-129 [facility] Serum or plasma calcium elvia urement (mass/volume)Ordered By: Mathieu Mcintyre on 03-03-2025 Calcium [Mass/Vol] 9.3 mg/dL 7.6-11.0 [facility] Serum or plasma ferritin pedro luis surement (mass/volume)Ordered By: Mathieu Mcintyre on 03-03-2025 Ferritin [Mass/Vol] 769 ng/mL High 37-417 [facility] Serum or plasma iron saturat ion measurement (mass fraction)Ordered By: Mathieu Mcintyre on 03-03-2025 Iron saturation [Mass fraction] 31.7 % 9-55 [facility] Serum or plasma urea nitroge n measurement (mass/volume)Ordered By: Mathieu Mcintyre on 03-03-2025 Urea nitrogen [Mass/Vol] 46 mg/dL High 4-19 [facility] Sodium levelOrdered By: Rory Mcintyre on 03-03-2025 Sodium [Moles/Vol] 139 mmol/L 133-145 [facility] Total proteinOrdered By: Anderson Mcintyre on 03-03-2025 Protein [Mass/Vol] 6.8 g/dL 5.9-8.4 [facility] Vitamin B12on 03-03-2025 Cobalamin (Vitamin B12) [Mass/Vol] 267 pg/mL Normal 180-914 [facility] Comment on above: Performed By: #### L 503.6030, L500.4050, L501.5200, L503.0106 ####[facility] [address] [place], [place], [address] Vitamin B12 ser/plasOrdered By: Mathieu Mcintyre on 03-03-2025 Cobalamin (Vitamin B12) [Mass/Vol] 267 pg/mL 180-914 [facility] White blood cell (WBC) count Ordered By: Mathieu Mcintyre on 03-03-2025 WBC (Bld) [#/Vol] 4.2 10*3/uL Low 4.4-11.0 [facility] Operative Reporton Operative Report Normal [facility] Anion gap in Serum or Plasma Ordered By: Jakob Flower on 02-15-2025 Anion gap [Moles/Vol] 13 mmol/L - [facility] BUN/creatinine ratioOrdered By: Jakob Flower on 02-15-2025 Urea nitrogen/Creatinine [Mass ratio] 20.9 mg/mg High 10- [facility] Basic Metabolic Profile (BMP )on 02-15-2025 BUN/CRE 20.9 RATIO High - [facility] Comment on above: Order Comment: Order Date: 01/24/25Order Info: 666-1 - BMPOrder Info: - CHING YIN ORDERED BMP,MG,MICROALBDR MONIQUE ORDERED CBC,BMP Performed By: #### L 500.2500, L502.0500, L501.5200 ####[facility] [address] [place], [address] Calcium [Mass/Vol] 9.3 mg/dL Normal 7.6-11.0 [facility] Comment on above: Order Comment: Order Date: 01/24/25Order Info: 666-1 - BMPOrder Info: - CHING YIN ORDERED BMP,MG,MICROALBDR AMAYA ORDERED CBC,BMP Performed By: #### L 500.2500, L502.0500, L501.5200 ####[facility] [address] [place], [place], [address] Chloride [Moles/Vol] 107 mmol/L Normal 98-108 [facility] Comment on above: Order Comment: Order Date: 01/24/25Order Info: 666-06 - BMPOrder Info: - MGCHING SMITH ORDERED BMP,MG,MICROALBDR AMAYA ORDERED CBC,BMP Performed By: #### L 500.2500, L502.0500, L501.5200 ####[facility] [address] [place], [address] CO2 [Moles/Vol] 20.6 mmol/L Low 21.0-32.0 [facility] Comment on above: Order Comment: Order Date: 01/24/25Order Info: 666-06 - BMPOrder Info: - MGCHING SMITH ORDERED BMP,MG,MICROALBDR AMAYA ORDERED CBC,BMP Performed By: #### L 500.2500, L502.0500, L501.5200 ####[facility] [address] [place], [place], [address] Creatinine [Mass/Vol] 2.14 mg/dL High 0.70-1.20 [facility] Comment on above: Order Comment: Order Date: 01/24/25Order Info: 666-06 - BMPOrder Info: - MGDRFLOWER ORDERED BMP,MG,MICROALBDR AMAYA ORDERED CBC,BMP Performed By: #### L 500.2500, L502.0500, L501.5200 ####[facility] [address] [place], [address] GAP 13 Normal 5-15 [facility] Comment on above: Order Comment: Order Date: 01/24/25Order Info: 666-06 - BMPOrder Info: - MGCHING SMITH ORDERED BMP,MG,MICROALBDR AMAYA ORDERED CBC,BMP Performed By: #### L 500.2500, L502.0500, L501.5200 ####[facility] [address] [place], [address] GFR/1.73 sq M.predicted among non-blacks MDRD (S/P/Bld) [Vol rate/Area] 30 mL/min/{1.73_m2} Low >60 [facility] Comment on above: Order Comment: Order Date: 01/24/25Order Info: 666-06 - BMPOrder Info: - MGDRCHING ORDERED BMP,MG,MICROALBDR AMAYA ORDERED CBC,BMP Result Comment: mL/m in/1.73m2 CKD-EPI Creatinine Equation (2020) Performed By: #### L 500.2500, L502.0500, L501.5200 ####[facility] [address] [place], [address] Glucose [Mass/Vol] 130 mg/dL High 70-99 [facility] Comment on above: Order Comment: Order Date: 01/24/25Order Info: 666-06 - BMPOrder Info: - MGCHING SMITH ORDERED BMP,MG,MICROALBDR AMAYA ORDERED CBC,BMP Performed By: #### L 500.2500, L502.0500, L501.5200 ####[facility] [address] [place], [place], [address] Potassium [Moles/Vol] 4.8 mmol/L Normal 3.3-5.1 [facility] Comment on above: Order Comment: Order Date: 01/24/25Order Info: 666-06 - BMPOrder Info: - MGDRCHING ORDERED BMP,MG,MICROALBDR AMAYA ORDERED CBC,BMP Performed By: #### L 500.2500, L502.0500, L501.5200 ####[facility] [address] [place], [address] Sodium [Moles/Vol] 141 mmol/L Normal 133-145 [facility] Comment on above: Order Comment: Order Date: 01/24/25Order Info: 666-06 - BMPOrder Info: - MGDR,CHING ORDERED BMP,MG,MICROALBDR AMAYA ORDERED CBC,BMP Performed By: #### L 500.2500, L502.0500, L501.5200 ####[facility] [address] [place], [address] Urea nitrogen [Mass/Vol] 45 mg/dL High 4-19 [facility] Comment on above: Order Comment: Order Date: 01/24/25Order Info: 0667-1 - BMPOrder Info: 39915-8 - MGDRCHING ORDERED BMP,MG,MICROALBDCalvin AMAYA ORDERED CBC,BMP Performed By: #### L 500.2500, L502.0500, L501.5200 ####[facility] [address] [place], [address] CBC-Complete Blood Cnt No Di ffon 02-15-2025 Erythrocyte distribution width (RBC) [Ratio] 13.0 % Normal 11.6-14.6 [facility] Comment on above: Performed By: #### L 100.0500 ####[facility] [address] [place], [address] Hematocrit (Bld) [Volume fraction] 32.2 % Low 40-54 [facility] Comment on above: Performed By: #### L 100.0500 ####[facility] [address] [place], [address] Hemoglobin (Bld) [Mass/Vol] 10.6 g/dL Low 13.0-16.5 [facility] Comment on above: Performed By: #### L 100.0500 ####[facility] [address] [place], [address] MCH (RBC) [Entitic mass] 34.9 pg High 27.0-32.0 [facility] Comment on above: Performed By: #### L 100.0500 ####[facility] [address] [place], [address] MCHC (RBC) [Mass/Vol] 32.9 g/dL Normal 32-36 [facility] Comment on above: Performed By: #### L 100.0500 ####[facility] [address] [place], [address] MCV (RBC) [Entitic vol] 105.9 fL High 80-94 [facility] Comment on above: Performed By: #### L 100.0500 ####[facility] [address] [place], [address] Platelet mean volume (Bld) [Entitic vol] 10.1 fL Normal 6.2-12.0 [facility] Comment on above: Performed By: #### L 100.0500 ####[facility] [address] [place], [address] Platelets (Bld) [#/Vol] 140 10*3/uL Low 150-450 [facility] Comment on above: Performed By: #### L 100.0500 ####[facility] [address] [place], [address] RBC (Bld) [#/Vol] 3.04 10*6/uL Low 4.6-6.2 [facility] Comment on above: Performed By: #### L 100.0500 ####[facility] [address] [place], [address] RDW SD 50.5 fl High 35.1-43.9 [facility] Comment on above: Performed By: #### L 100.0500 ####[facility] [address] [place], [address] WBC (Bld) [#/Vol] 4.3 10*3/uL Low 4.4-11.0 [facility] Comment on above: Performed By: #### L 100.0500 ####[facility] [address] [place], [address] Carbon dioxide, total [Moles /volume] in Central venous bloodOrdered By: Jakob Flower on 02-15-2025 CO2 [Moles/Vol] 20.6 mmol/L Low 21.0-32.0 [facility] Chloride assayOrdered By: Jonah Flower on 02-15-2025 Chloride [Moles/Vol] 107 mmol/L 98-108 [facility] Erythrocyte distribution wid th ratioOrdered By: Jakob Flower on 02-15-2025 Erythrocyte distribution width (RBC) [Ratio] 13.0 % 11.6-14.6 [facility] Erythrocyte distribution wid th standard deviationOrdered By: Jakob Flower on 02-15-2025 Erythrocyte distribution width (RBC) [Ratio] 50.5 fl High 35.1-43.9 [facility] Glomerular filtration rate ( GFR) estimation/1.73 sq m using serum, plasma, or whole bOrdered By: Jakob Flower on 02-15-2025 GFR/1.73 sq M.predicted among non-blacks MDRD (S/P/Bld) [Vol rate/Area] 30 mL/min/{1.73_m2} Low >60 [facility] Comment on above: mL/min/1.73m2 CKD-EP I Creatinine Equation (2020) Hematocrit Auto (Bld) [Volum e fraction]Ordered By: Jakob Flower on 02-15-2025 Hematocrit (Bld) [Volume fraction] 32.2 % Low 40-54 [facility] Hemoglobin measurementOrdere d By: Jakob Flower on 02-15-2025 Hemoglobin (Bld) [Mass/Vol] 10.6 g/dL Low 13.0-16.5 [facility] MCV (mean corpuscular volume ) determinationOrdered By: Jakob Flower on 02-15-2025 MCV (RBC) [Entitic vol] 105.9 fL High 80-94 [facility] Magnesiumon 02-15-2025 Magnesium [Mass/Vol] 2.3 mg/dL High 1.5-2.2 [facility] Comment on above: Order Comment: Order Date: 01/24/25Order Info: 0667-1 - BMPOrder Info: 74103-6 - MGCHING SMITH ORDERED BMP,MG,MICROALBDR MONIQUE ORDERED CBC,BMP Performed By: #### L 500.2500, L502.0500, L501.5200 ####[facility] [address] [place], [address] Magnesium measurement (mass/ volume)Ordered By: Jakob Flower on 02-15-2025 Magnesium (Unsp spec) [Mass/Vol] 2.3 mg/dL High 1.5-2.2 [facility] Mean corpuscular hemoglobin (MCH) determinationOrdered By: Jakob Flower on 02-15-2025 MCH (RBC) [Entitic mass] 34.9 pg High 27.0-32.0 [facility] Mean corpuscular hemoglobin concentration (MCHC) determinationOrdered By: Jakob Flower on 02-15-2025 MCHC (RBC) [Mass/Vol] 32.9 g/dL 32-36 [facility] Mean platelet volume determi nationOrdered By: Jakob Flower on 02-15-2025 Platelet mean volume (Bld) [Entitic vol] 10.1 fL 6.2-12.0 [facility] Microalbumin,Random Urineon 02-15-2025 MICROALBUMIN,UR 642.0 mg/L Normal <20 mg/L [facility] Comment on above: Order Comment: Order Date: 01/24/25Order Info: 23107-0 - MIALB Performed By: #### L 500.2500, L502.0500, L501.5200 ####[facility] [address] [place], [address] Platelet countOrdered By: Jonah Flower on 02-15-2025 Platelets (Bld) [#/Vol] 140 10*3/uL Low 150-450 [facility] Potassium measurement (mass/ volume)Ordered By: Jakob Flower on 02-15-2025 Potassium (Unsp spec) [Mass/Vol] 4.8 mmol/L 3.3-5.1 [facility] RBC Auto (Bld) [#/Vol]Ordere d By: Jakob Flower on 02-15-2025 RBC (Bld) [#/Vol] 3.04 10*6/uL Low 4.6-6.2 [facility] Serum creatinine measurement (mass/volume)Ordered By: Jakob Flower on 02-15-2025 Creatinine [Mass/Vol] 2.14 mg/dL High 0.70-1.20 [facility] Serum glucose measurement (m ass/volume)Ordered By: Jakob Flower on 02-15-2025 Glucose [Mass/Vol] 130 mg/dL High 70-99 [facility] Serum or plasma calcium elvia urement (mass/volume)Ordered By: Jakob Flower on 02-15-2025 Calcium [Mass/Vol] 9.3 mg/dL 7.6-11.0 [facility] Serum or plasma urea nitroge n measurement (mass/volume)Ordered By: Jakob Flower on 02-15-2025 Urea nitrogen [Mass/Vol] 45 mg/dL High 4-19 [facility] Sodium levelOrdered By: Jakob Flower on 02-15-2025 Sodium [Moles/Vol] 141 mmol/L 133-145 [facility] Urine albumin measurement wi detection limit of 20 mg/L or less (mass/volume)Ordered By: Jakob Flower on 02-15-2025 Albumin DL <= 20 mg/L (U) [Mass/Vol] 642.0 mg/L <20 mg/L [facility] White blood cell (WBC) count Ordered By: Jakob Flower on 02-15-2025 WBC (Bld) [#/Vol] 4.3 10*3/uL Low 4.4-11.0 [facility] Discharge Instructionon 11-30 Discharge Instruction Normal [facility] MR/POSTOP.ANEon 12-27-2024 MR/POSTOP.ANE Normal [facility] MR/[id number] 12-27-2024 MR/POSTOPAN2 Normal [facility] Operative Reporton Operative Report Normal [facility] Microalb:Creat Ratio,Random URon 12-21-2024 MALB:CREAT 164.0 mg/g CRE Normal [facility] Comment on above: Order Comment: Order Date: 11/25/24Order Info: [id number] - MIALB Result Comment: AMENDED REPORT 12/21/24 1117 MALB:CREAT previously reported as: 1639.6 mg/g CRE Performed By: #### L 502.0250 ####[facility] [address] [place], [address] Electrocardiogram reportOrde red By: Raquel Luevano on 12-17-2024 EKG study [facility] Work Phone: 12 Lead EKGon 12-16-2024 12 Lead EKG Normal [facility] Activated partial thrombopla stin time (aPTT) in platelet poor plasma by coagulation aOrdered By: River Hamm on 12-16-2024 aPTT Coag (PPP) [Time] 27.8 s 24.1-36.2 [facility] Anion gap in Serum or Plasma Ordered By: Jakob Flower on 12-16-2024 Anion gap [Moles/Vol] 13 mmol/L - [facility] BUN/creatinine ratioOrdered By: Jakob Flower on 12-16-2024 Urea nitrogen/Creatinine [Mass ratio] 19.7 mg/mg - [facility] Basic Metabolic Profile (BMP )on 12-16-2024 BUN/CRE 19.7 RATIO Normal 04-18 [facility] Comment on above: Order Comment: Order Date: 12/09/24Order Info: 666-06 - BMP Performed By: #### L 500.2500 ####[facility] [address] [place], [address] Calcium [Mass/Vol] 9.0 mg/dL Normal 7.6-11.0 [facility] Comment on above: Order Comment: Order Date: 12/09/24Order Info: 666-06 - BMP Performed By: #### L 500.2500 ####[facility] [address] [place], [address] Chloride [Moles/Vol] 105 mmol/L Normal 98-108 [facility] Comment on above: Order Comment: Order Date: 12/09/24Order Info: 666-06 - BMP Performed By: #### L 500.2500 ####[facility] [address] [place], [address] CO2 [Moles/Vol] 21.6 mmol/L Normal 21.0-32.0 [facility] Comment on above: Order Comment: Order Date: 12/09/24Order Info: 666-06 - BMP Performed By: #### L 500.2500 ####[facility] [address] [place], [address] Creatinine [Mass/Vol] 2.13 mg/dL High 0.70-1.20 [facility] Comment on above: Order Comment: Order Date: 12/09/24Order Info: 666-06 - BMP Performed By: #### L 500.2500 ####[facility] [address] [place], [address] GAP 13 Normal 5-15 [facility] Comment on above: Order Comment: Order Date: 12/09/24Order Info: 666-06 - BMP Performed By: #### L 500.2500 ####[facility] [address] [place], [address] GFR/1.73 sq M.predicted among non-blacks MDRD (S/P/Bld) [Vol rate/Area] 30 mL/min/{1.73_m2} Low >60 [facility] Comment on above: Order Comment: Order Date: 12/09/24Order Info: 666-06 - BMP Result Comment: mL/m in/1.73m2 CKD-EPI Creatinine Equation (2020) Performed By: #### L 500.2500 ####[facility] [address] [place], [address] Glucose [Mass/Vol] 115 mg/dL High 70-99 [facility] Comment on above: Order Comment: Order Date: 12/09/24Order Info: 666-06 - BMP Performed By: #### L 500.2500 ####[facility] [address] [place], [place], [id number] Potassium [Moles/Vol] 4.6 mmol/L Normal 3.3-5.1 [facility] Comment on above: Order Comment: Order Date: 12/09/24Order Info: 666-06 - BMP Performed By: #### L 500.2500 ####[facility] [address] [place], [place], [address] Sodium [Moles/Vol] 139 mmol/L Normal 133-145 [facility] Comment on above: Order Comment: Order Date: 12/09/24Order Info: 666-06 - BMP Performed By: #### L 500.2500 ####[facility] [address] [place], [place], [address] Urea nitrogen [Mass/Vol] 42 mg/dL High -19 [facility] Comment on above: Order Comment: Order Date: 12/09/24Order Info: 666-06 - BMP Performed By: #### L 500.2500 ####[facility] [address] [place], [place], [address] Bilirubin directOrdered By: River Hamm on 12-16-2024 Bilirubin.direct [Mass/Vol] 0.23 mg/dL 0.00-0.30 [facility] Bilirubin, totalOrdered By: River Hamm on 12-16-2024 Bilirubin [Mass/Vol] 0.47 mg/dL 0.00-1.30 [facility] Carbon dioxide, total [Moles /volume] in Central venous bloodOrdered By: Jakob Flower on 12-16-2024 CO2 [Moles/Vol] 21.6 mmol/L 21.0-32.0 [facility] Chloride assayOrdered By: Jonah Flower on 12-16-2024 Chloride [Moles/Vol] 105 mmol/L 98-108 [facility] Glomerular filtration rate ( GFR) estimation/1.73 sq m using serum, plasma, or whole bOrdered By: Jakob Flower on 12-16-2024 GFR/1.73 sq M.predicted among non-blacks MDRD (S/P/Bld) [Vol rate/Area] 30 mL/min/{1.73_m2} Low >60 [facility] Comment on above: mL/min/1.73m2 CKD-EP I Creatinine Equation (2020) International normalized rat io (INR) calculationOrdered By: River Hamm on 12-16-2024 INR Coag (Bld) [Relative time] 1.0 {INR} [facility] Laboratory - Chemistry and C hemistry - challengeOrdered By: River Hamm on 12-16-2024 AST [Catalytic activity/Vol] 19 U/L <38 [facility] Liver Profileon 12-16-2024 Albumin [Mass/Vol] 4.4 g/dL Normal 3.4-4.8 [facility] Comment on above: Performed By: #### L 501.9520, L300.4310, L500.3400, L300.3900 ####[facility] [address] [place], [address] ALK PHOS 81 U/L Normal 40-129 [facility] Comment on above: Performed By: #### L 501.9520, L300.4310, L500.3400, L300.3900 ####[facility] [address] [place], [address] ALT [Catalytic activity/Vol] 10 U/L Normal <=46 [facility] Comment on above: Performed By: #### L 501.9520, L300.4310, L500.3400, L300.3900 ####[facility] [address] [place], [address] AST [Catalytic activity/Vol] 19 U/L Normal <=37 [facility] Comment on above: Performed By: #### L 501.9520, L300.4310, L500.3400, L300.3900 ####[facility] [address] [place], [address] Bilirubin [Mass/Vol] 0.47 mg/dL Normal 0.00-1.30 [facility] Comment on above: Performed By: #### L 501.9520, L300.4310, L500.3400, L300.3900 ####[facility] [address] [place], [address] Bilirubin.direct [Mass/Vol] 0.23 mg/dL Normal 0.00-0.30 [facility] Comment on above: Performed By: #### L 501.9520, L300.4310, L500.3400, L300.3900 ####[facility] [address] [place], [address] Globulin (S) [Mass/Vol] 2.0 g/dL Low 2.2-4.[address] [facility] Comment on above: Performed By: #### L 501.9520, L300.4310, L500.3400, L300.3900 ####[facility] [address] [place], [address] T PROT 6.4 g/dL Normal 5.9-8.4 [facility] Comment on above: Performed By: #### L 501.9520, L300.4310, L500.3400, L300.3900 ####[facility] [address] [place], [address] No Panel InformationOrdered By: River Hamm on 12-16-2024 19 U/L <38 [facility] Partial Thromboplast Timeon 12-16-2024 aPTT Coag (Bld) [Time] 27.8 s Normal 24.1-36.2 [facility] Comment on above: Performed By: #### L 501.9520, L300.4310, L500.3400, L300.3900 ####[facility] [address] [place], [address] Potassium measurement (mass/ volume)Ordered By: Jakob Flower on 12-16-2024 Potassium (Unsp spec) [Mass/Vol] 4.6 mmol/L 3.3-5.1 [facility] Prothrombin Time w/INRon INR Coag (PPP) [Relative time] 1.0 {INR} Normal [facility] Comment on above: Performed By: #### L 501.9520, L300.4310, L500.3400, L300.3900 ####[facility] [address] [place], [address] PT Coag (PPP) [Time] 13.8 s Normal 11.7-14.9 [facility] Comment on above: Performed By: #### L 501.9520, L300.4310, L500.3400, L300.3900 ####[facility] [address] [place], [address] Prothrombin timeOrdered By: River Hamm on 12-16-2024 PT Coag (PPP) [Time] 13.8 s 11.7-14.9 [facility] Serum creatinine measurement (mass/volume)Ordered By: Jakob Flower on 12-16-2024 Creatinine [Mass/Vol] 2.13 mg/dL High 0.70-1.20 [facility] Serum globulin measurementOr dered By: River Hamm on 12-16-2024 Globulin (S) [Mass/Vol] 2.0 g/dL Low 2.2-4.2 [facility] Serum glucose measurement (m ass/volume)Ordered By: Jakob Flower on 12-16-2024 Glucose [Mass/Vol] 115 mg/dL High 70-99 [facility] Serum or plasma alanine sanchez otransferase (ALT) measurementOrdered By: River Hamm on 12-16-2024 ALT [Catalytic activity/Vol] 10 U/L <47 [facility] Serum or plasma albumin elvia urement (mass/volume)Ordered By: River Hamm on 12-16-2024 Albumin [Mass/Vol] 4.4 g/dL 3.4-4.8 [facility] Serum or plasma alkaline bonnie sphatase measurementOrdered By: River Hamm on 12-16-2024 ALP [Catalytic activity/Vol] 81 U/L 40-129 [facility] Serum or plasma calcium elvia urement (mass/volume)Ordered By: Jakob Flower on 12-16-2024 Calcium [Mass/Vol] 9.0 mg/dL 7.6-11.0 [facility] Serum or plasma urea nitroge n measurement (mass/volume)Ordered By: Jakob Flower on 12-16-2024 Urea nitrogen [Mass/Vol] 42 mg/dL High 4-19 [facility] Sodium levelOrdered By: Jakob Flower on 12-16-2024 Sodium [Moles/Vol] 139 mmol/L 133-145 [facility] TSH DL <= 0.005 mIU/L QnOrde red By: River Hamm on 12-16-2024 TSH Qn 0.746 uIU/mL 0.300-4.20 0 [facility] Thyroid Stim Hormone (TSH)on 12-16-2024 TSH 0.746 uIU/mL Normal 0.300-4.20 0 [facility] Comment on above: Performed By: #### L 501.9520, L300.4310, L500.3400, L300.3900 ####[facility] [address] [place], [place], [id number] Total proteinOrdered By: Abran Hamm on 12-16-2024 Protein [Mass/Vol] 6.4 g/dL 5.9-8.4 [facility] MR/PAT.ANEon 12-14-2024 MR/PAT.ANE Normal [facility] Surgery Visit Reporton 12-10 Surgery Visit Report Normal [facility] Anion gap in Serum or Plasma Ordered By: Jakob Flower on 12-06-2024 Anion gap [Moles/Vol] 16 mmol/L High 5-15 [facility] BUN/creatinine ratioOrdered By: Jakob Flower on 12-06-2024 Urea nitrogen/Creatinine [Mass ratio] 19.8 mg/mg 10- [facility] Basic Metabolic Profile (BMP )on 12-06-2024 BUN/CRE 19.8 RATIO Normal - [facility] Comment on above: Order Comment: ADRIANA FLOWER ORDEROrder Date: 11/30/24Order Info: 666-06 - BMP Performed By: #### L 500.2500 ####[facility] [address] [place], [address] Calcium [Mass/Vol] 9.5 mg/dL Normal 7.6-11.0 [facility] Comment on above: Order Comment: PER Gabriella FLOWER ORDEROrder Date: 11/30/24Order Info: 666-06 - BMP Performed By: #### L 500.2500 ####[facility] [address] [place], [address] Chloride [Moles/Vol] 102 mmol/L Normal 98-108 [facility] Comment on above: Order Comment: PER Gabriella FLOWER ORDEROrder Date: 11/30/24Order Info: 666-06 - BMP Performed By: #### L 500.2500 ####[facility] [address] [place], [address] CO2 [Moles/Vol] 21.4 mmol/L Normal 21.0-32.0 [facility] Comment on above: Order Comment: PER Gabriella FLOWER ORDEROrder Date: 11/30/24Order Info: 666-06 - BMP Performed By: #### L 500.2500 ####[facility] [address] [place], [address] Creatinine [Mass/Vol] 2.59 mg/dL High 0.70-1.20 [facility] Comment on above: Order Comment: PER Gabriella FLOWER ORDEROrder Date: 11/30/24Order Info: 666-06 - BMP Performed By: #### L 500.2500 ####[facility] [address] [place], [address] GAP 16 High 5-15 [facility] Comment on above: Order Comment: PER Gabriella FLOWER ORDEROrder Date: 11/30/24Order Info: 666-06 - BMP Performed By: #### L 500.2500 ####[facility] [address] [place], [place], [phone] GFR/1.73 sq M.predicted among non-blacks MDRD (S/P/Bld) [Vol rate/Area] 24 mL/min/{1.73_m2} Low >60 [facility] Comment on above: Order Comment: ADRIANA FLOWER ORDEROrder Date: 11/30/24Order Info: 666-06 - BMP Result Comment: mL/m in/1.73m2 CKD-EPI Creatinine Equation (2020) Performed By: #### L 500.2500 ####[facility] [address] [place], [address] Glucose [Mass/Vol] 160 mg/dL High 70-99 [facility] Comment on above: Order Comment: PER Gabriella FLOWER ORDEROrder Date: 11/30/24Order Info: 666-06 - BMP Performed By: #### L 500.2500 ####[facility] [address] [place], [address] Potassium [Moles/Vol] 4.3 mmol/L Normal 3.3-5.1 [facility] Comment on above: Order Comment: ADRIANA FLOWER ORDEROrder Date: 11/30/24Order Info: 666-06 - BMP Performed By: #### L 500.2500 ####[facility] [address] [place], [address] Sodium [Moles/Vol] 139 mmol/L Normal 133-145 [facility] Comment on above: Order Comment: ADRIANA FLOWER ORDEROrder Date: 11/30/24Order Info: 666-06 - BMP Performed By: #### L 500.2500 ####[facility] [address] [place], [address] Urea nitrogen [Mass/Vol] 51 mg/dL High 4-19 [facility] Comment on above: Order Comment: ADRIANA FLOWER ORDEROrder Date: 11/30/24Order Info: 666-06 - BMP Performed By: #### L 500.2500 ####[facility] [address] [place], [address] Carbon dioxide, total [Moles /volume] in Central venous bloodOrdered By: Jakob Flower on 12-06-2024 CO2 [Moles/Vol] 21.4 mmol/L 21.0-32.0 [facility] Chloride assayOrdered By: Jonah Flower on 12-06-2024 Chloride [Moles/Vol] 102 mmol/L 98-108 [facility] Glomerular filtration rate ( GFR) estimation/1.73 sq m using serum, plasma, or whole bOrdered By: Jakob Flower on 12-06-2024 GFR/1.73 sq M.predicted among non-blacks MDRD (S/P/Bld) [Vol rate/Area] 24 mL/min/{1.73_m2} Low >60 [facility] Comment on above: mL/min/1.73m2 CKD-EP I Creatinine Equation (2020) Potassium measurement (mass/ volume)Ordered By: Jakob Flower on 12-06-2024 Potassium (Unsp spec) [Mass/Vol] 4.3 mmol/L 3.3-5.1 [facility] Serum creatinine measurement (mass/volume)Ordered By: Jakob Flower on 12-06-2024 Creatinine [Mass/Vol] 2.59 mg/dL High 0.70-1.20 [facility] Serum glucose measurement (m ass/volume)Ordered By: Jakob Flower on 12-06-2024 Glucose [Mass/Vol] 160 mg/dL High 70-99 [facility] Serum or plasma calcium elvia urement (mass/volume)Ordered By: Jakob Flower on 12-06-2024 Calcium [Mass/Vol] 9.5 mg/dL 7.6-11.0 [facility] Serum or plasma urea nitroge n measurement (mass/volume)Ordered By: Jakob Flower on 12-06-2024 Urea nitrogen [Mass/Vol] 51 mg/dL High 4-19 [facility] Sodium levelOrdered By: Jakob Flower on 12-06-2024 Sodium [Moles/Vol] 139 mmol/L 133-145 [facility] Anion gap in Serum or Plasma Ordered By: Jakob Flower on 11-29-2024 Anion gap [Moles/Vol] 12 mmol/L 5-15 [facility] BUN/creatinine ratioOrdered By: Jakob Flower on 11-29-2024 Urea nitrogen/Creatinine [Mass ratio] 20.2 mg/mg High 10-20 [facility] Bilirubin, totalOrdered By: Jakob Flower on 11-29-2024 Bilirubin [Mass/Vol] 0.35 mg/dL 0.00-1.30 [facility] Carbon dioxide, total [Moles /volume] in Central venous bloodOrdered By: Jakob Flower on 11-29-2024 CO2 [Moles/Vol] 19.5 mmol/L Low 21.0-32.0 [facility] Chloride assayOrdered By: Jonah Flower on 11-29-2024 Chloride [Moles/Vol] 106 mmol/L 98-108 [facility] Comprehensive Metabolic Prof ilon 11-29-2024 Albumin [Mass/Vol] 4.5 g/dL Normal 3.4-4.8 [facility] Comment on above: Order Comment: Order Date: 11/25/24Order Info: [id number] - CMPOrder Info: [id number] - MG Performed By: #### L 500.4050, L501.5200 ####[facility] [address] [place], [place], [address] Albumin/Globulin [Mass ratio] 2.2 {ratio} Normal 0.9-2.4 [facility] Comment on above: Order Comment: Order Date: 11/25/24Order Info: [id number] - CMPOrder Info: [id number] - MG Performed By: #### L 500.4050, L501.5200 ####[facility] [address] [place], [address] ALK PHOS 73 U/L Normal 40-129 [facility] Comment on above: Order Comment: Order Date: 11/25/24Order Info: [id number] - CMPOrder Info: [id number] - MG Performed By: #### L 500.4050, L501.5200 ####[facility] [address] [place], [address] ALT [Catalytic activity/Vol] 8 U/L Normal <=46 [facility] Comment on above: Order Comment: Order Date: 11/25/24Order Info: [id number] - CMPOrder Info: [id number] - MG Performed By: #### L 500.4050, L501.5200 ####[facility] [address] [place], [address] AST [Catalytic activity/Vol] 16 U/L Normal <=37 [facility] Comment on above: Order Comment: Order Date: 11/25/24Order Info: [id number] - CMPOrder Info: [id number] - MG Performed By: #### L 500.4050, L501.5200 ####[facility] [address] [place], [address] Bilirubin [Mass/Vol] 0.35 mg/dL Normal 0.00-1.30 [facility] Comment on above: Order Comment: Order Date: 11/25/24Order Info: [id number] - CMPOrder Info: [id number] - MG Performed By: #### L 500.4050, L501.5200 ####[facility] [address] [place], [address] BUN/CRE 20.2 RATIO High 10-20 [facility] Comment on above: Order Comment: Order Date: 11/25/24Order Info: [id number] - CMPOrder Info: [id number] - MG Performed By: #### L 500.4050, L501.5200 ####[facility] [address] [place], [address] Calcium [Mass/Vol] 9.2 mg/dL Normal 7.6-11.0 [facility] Comment on above: Order Comment: Order Date: 11/25/24Order Info: 0786-1 - CMPOrder Info: [id number] - MG Performed By: #### L 500.4050, L501.5200 ####[facility] [address] [place], [address] Chloride [Moles/Vol] 106 mmol/L Normal 98-108 [facility] Comment on above: Order Comment: Order Date: 11/25/24Order Info: [id number] - CMPOrder Info: [id number] - MG Performed By: #### L 500.4050, L501.5200 ####[facility] [address] [place], [address] CO2 [Moles/Vol] 19.5 mmol/L Low 21.0-32.0 [facility] Comment on above: Order Comment: Order Date: 11/25/24Order Info: [id number] - CMPOrder Info: [id number] - MG Performed By: #### L 500.4050, L501.5200 ####[facility] [address] [place], [address] Creatinine [Mass/Vol] 2.42 mg/dL High 0.70-1.20 [facility] Comment on above: Order Comment: Order Date: 11/25/24Order Info: [id number] - CMPOrder Info: [id number] - MG Performed By: #### L 500.4050, L501.5200 ####[facility] [address] [place], [address] GAP 12 Normal 5-15 [facility] Comment on above: Order Comment: Order Date: 11/25/24Order Info: [id number] - CMPOrder Info: [id number] - MG Performed By: #### L 500.4050, L501.5200 ####[facility] [address] [place], [address] GFR/1.73 sq M.predicted among non-blacks MDRD (S/P/Bld) [Vol rate/Area] 26 mL/min/{1.73_m2} Low >60 [facility] Comment on above: Order Comment: Order Date: 11/25/24Order Info: [id number] - CMPOrder Info: [id number] - MG Result Comment: mL/m in/1.73m2 CKD-EPI Creatinine Equation (2020) Performed By: #### L 500.4050, L501.5200 ####[facility] [address] [place], [address] Globulin (S) [Mass/Vol] 2.1 g/dL Low 2.2-4.2 [facility] Comment on above: Order Comment: Order Date: 11/25/24Order Info: 0786-1 - CMPOrder Info: [id number] - MG Performed By: #### L 500.4050, L501.5200 ####[facility] [address] [place], [address] Glucose [Mass/Vol] 111 mg/dL High 70-99 [facility] Comment on above: Order Comment: Order Date: 11/25/24Order Info: [id number] - CMPOrder Info: [id number] - MG Performed By: #### L 500.4050, L501.5200 ####[facility] [address] [place], [address] Potassium [Moles/Vol] 6.0 mmol/L Invalid Interpretation Code 3.3-5.1 [facility] Comment on above: Order Comment: Order Date: 11/25/24Order Info: 0786-1 - CMPOrder Info: [id number] - MG Performed By: #### L 500.4050, L501.5200 ####[facility] [address] [place], [address] Sodium [Moles/Vol] 138 mmol/L Normal 133-145 [facility] Comment on above: Order Comment: Order Date: 11/25/24Order Info: 0786-1 - CMPOrder Info: [id number] - MG Performed By: #### L 500.4050, L501.5200 ####[facility] [address] [place], [address] T PROT 6.6 g/dL Normal 5.9-8.4 [facility] Comment on above: Order Comment: Order Date: 11/25/24Order Info: 0786-1 - CMPOrder Info: - MG Performed By: #### L 500.4050, L501.5200 ####[facility] [address] [place], [address] Urea nitrogen [Mass/Vol] 49 mg/dL High 4-19 [facility] Comment on above: Order Comment: Order Date: 11/25/24Order Info: 0786-1 - CMPOrder Info: - MG Performed By: #### L 500.4050, L501.5200 ####[facility] [address] [place], [address] Glomerular filtration rate ( GFR) estimation/1.73 sq m using serum, plasma, or whole bOrdered By: Jakob Flower on 11-29-2024 GFR/1.73 sq M.predicted among non-blacks MDRD (S/P/Bld) [Vol rate/Area] 26 mL/min/{1.73_m2} Low >60 [facility] Comment on above: mL/min/1.73m2 CKD-EP I Creatinine Equation (2020) Laboratory - Chemistry and C hemistry - challengeOrdered By: Jakob Flower on 11-29-2024 AST [Catalytic activity/Vol] 16 U/L <38 [facility] Magnesiumon 11-29-2024 Magnesium [Mass/Vol] 2.2 mg/dL Normal 1.5-2.2 [facility] Comment on above: Order Comment: Order Date: 11/25/24Order Info: 0786-1 - CMPOrder Info: - MG Performed By: #### L 500.4050, L501.5200 ####[facility] [address] [place], [address] Magnesium measurement (mass/ volume)Ordered By: Jakob Flower on 11-29-2024 Magnesium (Unsp spec) [Mass/Vol] 2.2 mg/dL 1.5-2.2 [facility] No Panel InformationOrdered By: Jakob Flower on 11-29-2024 16 U/L <38 [facility] Potassium measurement (mass/ volume)Ordered By: Jakob Flower on 11-29-2024 Potassium (Unsp spec) [Mass/Vol] 6.0 mmol/L High 3.3-5.1 [facility] Random urine creatinine elvia urement (mass/volume)Ordered By: Jakob Flower on 11-29-2024 Creatinine Unsp time (U) [Mass/Vol] 67.70 mg/dL 39.00-259. 00 [facility] Serum creatinine measurement (mass/volume)Ordered By: Jakob Flower on 11-29-2024 Creatinine [Mass/Vol] 2.42 mg/dL High 0.70-1.20 [facility] Serum globulin measurementOr dered By: Jakob Flower on 11-29-2024 Globulin (S) [Mass/Vol] 2.1 g/dL Low 2.2-4.[address] [facility] Serum glucose measurement (m ass/volume)Ordered By: Jakob Flower on 11-29-2024 Glucose [Mass/Vol] 111 mg/dL High 70-99 [facility] Serum or plasma alanine sanchez otransferase (ALT) measurementOrdered By: Jakob Flower on 11-29-2024 ALT [Catalytic activity/Vol] 8 U/L <47 [facility] Serum or plasma albumin elvia urement (mass/volume)Ordered By: Jakob Flower on 11-29-2024 Albumin [Mass/Vol] 4.5 g/dL 3.4-4.8 [facility] Serum or plasma albumin/glob ulin mass ratioOrdered By: Jakob Flower on 11-29-2024 Albumin/Globulin [Mass ratio] 2.2 {ratio} 0.9-2.4 [facility] Serum or plasma alkaline bonnie sphatase measurementOrdered By: Jakob Flower on 11-29-2024 ALP [Catalytic activity/Vol] 73 U/L 40-129 [facility] Serum or plasma calcium elvia urement (mass/volume)Ordered By: Jakob Flower on 11-29-2024 Calcium [Mass/Vol] 9.2 mg/dL 7.6-11.0 [facility] Serum or plasma urea nitroge n measurement (mass/volume)Ordered By: Jakob Flower on 11-29-2024 Urea nitrogen [Mass/Vol] 49 mg/dL High 4-19 [facility] Sodium levelOrdered By: Jakob Flower on 11-29-2024 Sodium [Moles/Vol] 138 mmol/L 133-145 [facility] Total proteinOrdered By: Catalina Flower on 11-29-2024 Protein [Mass/Vol] 6.6 g/dL 5.9-8.4 [facility] Urine albumin measurement [facility] detection limit of 20 mg/L or less (mass/volume)Ordered By: Jakob Flower on 11-29-2024 Albumin DL <= 20 mg/L (U) [Mass/Vol] 111.0 mg/L NO RANGE EST. [facility] CREATININE FINGERSTICKon Creatinine [Mass/Vol] 2.3 mg/dL High 0.70-1.30 [facility] Comment on above: Performed By: #### L 9100.0200 ####[facility] [address] [place], [address] GFR/1.73 sq M.predicted among non-blacks MDRD (S/P/Bld) [Vol rate/Area] 29.0000 mL/min/{1.73_m2} Low >60 [facility] Comment on above: Performed By: #### L 9100.0200 ####[facility] [address] [place], [place], [address] CTA Abd/Pelvis W/WO Contrast on 11-18-2024 CTA Abd/Pelvis W/WO Contrast Normal [facility] Creatinine measurement at be dsideOrdered By: Singh Amaya on 11-18-2024 Creatinine [Mass/Vol] 2.3 mg/dL High 0.70-1.30 [facility] EGFROrdered By: Singh Amaya on 11-18-2024 GFR/1.73 sq M.predicted among non-blacks MDRD (S/P/Bld) [Vol rate/Area] 29.0000 mL/min/{1.73_m2} Low >60 [facility] 12 Lead EKGon 11-08-2024 12 Lead EKG Normal [facility] Absolute lymphocyte countOrd ered By: Frederick Roberts on 11-08-2024 Lymphocytes Auto (Unsp spec) [#/Vol] 0.74 10*3/uL Low 0.83-4.51 [facility] Absolute lymphocyte countOrd ered By: Mathieu Mcintyre on 11-08-2024 Lymphocytes Auto (Unsp spec) [#/Vol] 0.88 10*3/uL 0.83-4.51 [facility] Absolute neutrophil countOrd ered By: Frederick Roberts on 11-08-2024 Neutrophils (Bld) [#/Vol] 3.1 10*3/uL 2.0-7.7 [facility] Absolute neutrophil countOrd ered By: Mathieu Mcintyre on 11-08-2024 Neutrophils (Bld) [#/Vol] 2.8 10*3/uL 2.0-7.7 [facility] Anion gap in Serum or Plasma Ordered By: Frederick Roberts on 11-08-2024 Anion gap [Moles/Vol] 11 mmol/L 11-11 [facility] Anion gap in Serum or Plasma Ordered By: Mathieu Mcintyre on 11-08-2024 Anion gap [Moles/Vol] 11 mmol/L 11-11 [facility] Automated lymphocyte count a s percentage of total leukocytesOrdered By: Frederick Roberts on 11-08-2024 Lymphocytes/100 WBC Auto (Unsp spec) 16.3 % Low [facility] Automated lymphocyte count a s percentage of total leukocytesOrdered By: Mathieu Mcintyre on 11-08-2024 Lymphocytes/100 WBC Auto (Unsp spec) 19.3 % [facility] BUN/creatinine ratioOrdered By: Frederick Roberts on 11-08-2024 Urea nitrogen/Creatinine [Mass ratio] 19.3 mg/mg 04-18 [facility] BUN/creatinine ratioOrdered By: Mathieu Mcintyre on 11-08-2024 Urea nitrogen/Creatinine [Mass ratio] 19.1 mg/mg 04-18 [facility] Basic Metabolic Profile (BMP )on 11-08-2024 BUN/CRE 19.3 RATIO Normal 10-20 [facility] Comment on above: Performed By: #### L 500.2500, L100.0100 ####[facility] [address] [place], [address] ECRCL 22.75 ml/min Low 50-250 [facility] Comment on above: Performed By: #### L 500.2500, L100.0100 ####[facility] [address] [place], [address] GAP 11 Normal 5-15 [facility] Comment on above: Performed By: #### L 500.2500, L100.0100 ####[facility] [address] [place], [address] Potassium [Moles/Vol] 6.6 mmol/L Invalid Interpretation Code 3.3-5.1 [facility] Comment on above: Result Comment: Hemo lysis present, Results??could be affected.??Critical Result(s) Called at: 1700 by:??CODY RILEY Results read back by same. Performed By: #### L 500.2500, L100.0100 ####[facility] [address] [place], [address] Potassium [Moles/Vol] 6.1 mmol/L Invalid Interpretation Code 3.3-5.1 [facility] Comment on above: Order Comment: K+ WA S RAN ON SERUM AND PLASMA RESULTS MATCHED.CRITICAL VALUE CALLED TO [id number]/12/25 1419 Jackie Bernardo.RESULTS READ BACK BY SAME. Result Comment: AMENDED REPORT 11/08/24 1419 K previously reported as: 6.1 *H mmol/LCritical Result(s) Called at: by:??Results read back bysame.Critical Result(s) Called at: by:??Results read back bysame.Critical Result(s) Called at: by:??Results read back bysame.Critical Result(s) Called at: by:??Results read back bysame.Critical Result(s) Called at: by:??Results read back bysame. Performed By: #### L 503.6030, L503.6550, L500.2500, L100.0100 ####[facility] [address] [place], [address] Basophil percentageOrdered B y: Frederick Roberts on 11-08-2024 Basophils/100 WBC (Bld) 0.9 % 0-1 [facility] Basophil percentageOrdered B y: Mathieu Mcintyre on 11-08-2024 Basophils/100 WBC (Bld) 0.7 % 0-1 [facility] Bedside Glucoseon 11-08-2024 FINGERSTICK GLU 223 mg/dL High 74-106 [facility] Comment on above: Result Comment: KENRICK RENE OF PATIENT CARE PER NURSING PROTOCOL Performed By: #### L 501.080 ####[facility] [address] [place], [address] CBC W/Diff, Automatedon 10-28 Absolute Lymph 0.74 X10 3/uL Low 0.83-4.51 [facility] Comment on above: Performed By: #### L 500.2500, L100.0100 ####[facility] [address] [place], [address] Absolute Neut 3.1 X10 3/uL Normal 2.0-7.7 [facility] Comment on above: Performed By: #### L 500.2500, L100.0100 ####[facility] [address] [place], [address] Basophils/100 WBC (Bld) 0.9 % Normal 0-1 [facility] Comment on above: Performed By: #### L 500.2500, L100.0100 ####[facility] [address] [place], [address] Eosinophils/100 WBC (Bld) 4.8 % Normal 0-5 [facility] Comment on above: Performed By: #### L 500.2500, L100.0100 ####[facility] [address] [place], [address] Erythrocyte distribution width (RBC) [Ratio] 13.2 % Normal 11.6-14.6 [facility] Comment on above: Performed By: #### L 500.2500, L100.0100 ####[facility] [address] [place], [address] Hematocrit (Bld) [Volume fraction] 32.7 % Low 40-54 [facility] Comment on above: Performed By: #### L 500.2500, L100.0100 ####[facility] [address] [place], [address] Hemoglobin (Bld) [Mass/Vol] 10.6 g/dL Low 13.0-16.5 [facility] Comment on above: Performed By: #### L 500.2500, L100.0100 ####[facility] [address] [place], [address] IG% 0.000 Normal 0.0-0.9 [facility] Comment on above: Result Comment: IG% - Immature Granulocytes (promyelocytes, myelocytes andmetamyelocytes) > 1% indicates that a LEFT SHIFT is Present. Performed By: #### L 500.2500, L100.0100 ####[facility] [address] [place], [address] Lymphocytes/100 WBC (Bld) 16.3 % Low 19-41 [facility] Comment on above: Performed By: #### L 500.2500, L100.0100 ####[facility] [address] [place], [address] MCH (RBC) [Entitic mass] 34.5 pg High 27.0-32.0 [facility] Comment on above: Performed By: #### L 500.2500, L100.0100 ####[facility] [address] [place], [address] MCHC (RBC) [Mass/Vol] 32.4 g/dL Normal 32-36 [facility] Comment on above: Performed By: #### L 500.2500, L100.0100 ####[facility] [address] [place], [address] MCV (RBC) [Entitic vol] 106.5 fL High 80-94 [facility] Comment on above: Performed By: #### L 500.2500, L100.0100 ####[facility] [address] [place], [address] Monocytes/100 WBC (Bld) 10.1 % High 0-10 [facility] Comment on above: Performed By: #### L 500.2500, L100.0100 ####[facility] [address] [place], [address] Neutrophils/100 WBC (Bld) 67.9 % Normal 47-70 [facility] Comment on above: Performed By: #### L 500.2500, L100.0100 ####[facility] [address] [place], [address] Nucleated RBC (Bld) [#/Vol] 0 10*3/uL Normal 0-5 [facility] Comment on above: Performed By: #### L 500.2500, L100.0100 ####[facility] [address] [place], [address] Platelet mean volume (Bld) [Entitic vol] 9.9 fL Normal 6.2-12.0 [facility] Comment on above: Performed By: #### L 500.2500, L100.0100 ####[facility] [address] [place], [address] Platelets (Bld) [#/Vol] 123 10*3/uL Low 150-450 [facility] Comment on above: Performed By: #### L 500.2500, L100.0100 ####[facility] [address] [place], [address] RBC (Bld) [#/Vol] 3.07 10*6/uL Low 4.6-6.2 [facility] Comment on above: Performed By: #### L 500.2500, L100.0100 ####[facility] [address] [place], [address] RDW SD 51.6 fl High 35.1-43.9 [facility] Comment on above: Performed By: #### L 500.2500, L100.0100 ####[facility] [address] [place], [address] WBC (Bld) [#/Vol] 4.5 10*3/uL Normal 4.4-11.0 [facility] Comment on above: Performed By: #### L 500.2500, L100.0100 ####[facility] [address] [place], [address] Absolute Lymph 0.88 X10 3/uL Normal 0.83-4.51 [facility] Comment on above: Performed By: #### L 503.6030, L503.6550, L500.2500, L100.0100 ####[facility] [address] [place], [address] Absolute Neut 2.8 X10 3/uL Normal 2.0-7.7 [facility] Comment on above: Performed By: #### L 503.6030, L503.6550, L500.2500, L100.0100 ####[facility] [address] [place], [address] Basophils/100 WBC (Bld) 0.7 % Normal 0-1 [facility] Comment on above: Performed By: #### L 503.6030, L503.6550, L500.2500, L100.0100 ####[facility] [address] [place], [address] Eosinophils/100 WBC (Bld) 7.0 % High 0-5 [facility] Comment on above: Performed By: #### L 503.6030, L503.6550, L500.2500, L100.0100 ####[facility] [address] [place], [address] Erythrocyte distribution width (RBC) [Ratio] 13.3 % Normal 11.6-14.6 [facility] Comment on above: Performed By: #### L 503.6030, L503.6550, L500.2500, L100.0100 ####[facility] [address] [place], [address] Hematocrit (Bld) [Volume fraction] 31.1 % Low 40-54 [facility] Comment on above: Performed By: #### L 503.6030, L503.6550, L500.2500, L100.0100 ####[facility] [address] [place], [address] Hemoglobin (Bld) [Mass/Vol] 10.2 g/dL Low 13.0-16.5 [facility] Comment on above: Performed By: #### L 503.6030, L503.6550, L500.2500, L100.0100 ####[facility] [address] [place], [address] IG% 0.200 Normal 0.0-0.9 [facility] Comment on above: Result Comment: IG% - Immature Granulocytes (promyelocytes, myelocytes andmetamyelocytes) > 1% indicates that a LEFT SHIFT is Present. Performed By: #### L 503.6030, L503.6550, L500.2500, L100.0100 ####[facility] [address] [place], [address] Lymphocytes/100 WBC (Bld) 19.3 % Normal 19-41 [facility] Comment on above: Performed By: #### L 503.6030, L503.6550, L500.2500, L100.0100 ####[facility] [address] [place], [address] MCH (RBC) [Entitic mass] 35.2 pg High 27.0-32.0 [facility] Comment on above: Performed By: #### L 503.6030, L503.6550, L500.2500, L100.0100 ####[facility] [address] [place], [address] MCHC (RBC) [Mass/Vol] 32.8 g/dL Normal 32-36 [facility] Comment on above: Performed By: #### L 503.6030, L503.6550, L500.2500, L100.0100 ####[facility] [address] [place], [address] MCV (RBC) [Entitic vol] 107.2 fL High 80-94 [facility] Comment on above: Performed By: #### L 503.6030, L503.6550, L500.2500, L100.0100 ####[facility] [address] [place], [address] Monocytes/100 WBC (Bld) 12.5 % High 0-10 [facility] Comment on above: Performed By: #### L 503.6030, L503.6550, L500.2500, L100.0100 ####[facility] [address] [place], [address] Neutrophils/100 WBC (Bld) 60.3 % Normal 47-70 [facility] Comment on above: Performed By: #### L 503.6030, L503.6550, L500.2500, L100.0100 ####[facility] [address] [place], [address] Nucleated RBC (Bld) [#/Vol] 0 10*3/uL Normal 0-5 [facility] Comment on above: Performed By: #### L 503.6030, L503.6550, L500.2500, L100.0100 ####[facility] [address] [place], [address] Platelet mean volume (Bld) [Entitic vol] 9.6 fL Normal 6.2-12.0 [facility] Comment on above: Performed By: #### L 503.6030, L503.6550, L500.2500, L100.0100 ####[facility] [address] [place], [address] Platelets (Bld) [#/Vol] 118 10*3/uL Low 150-450 [facility] Comment on above: Performed By: #### L 503.6030, L503.6550, L500.2500, L100.0100 ####[facility] [address] [place], [address] RBC (Bld) [#/Vol] 2.90 10*6/uL Low 4.6-6.2 [facility] Comment on above: Performed By: #### L 503.6030, L503.6550, L500.2500, L100.0100 ####[facility] [address] [place], [address] RDW SD 52.8 fl High 35.1-43.9 [facility] Comment on above: Performed By: #### L 503.6030, L503.6550, L500.2500, L100.0100 ####[facility] [address] [place], [address] WBC (Bld) [#/Vol] 4.6 10*3/uL Normal 4.4-11.0 [facility] Comment on above: Performed By: #### L 503.6030, L503.6550, L500.2500, L100.0100 ####[facility] [address] [place], [address] Carbon dioxide, total [Moles /volume] in Central venous bloodOrdered By: Frederick Roberts on 11-08-2024 CO2 [Moles/Vol] 18.5 mmol/L Low 21.0-32.0 [facility] Comment on above: Performed By: #### L 500.2500, L100.0100 ####[facility] [address] [place], [address] Carbon dioxide, total [Moles /volume] in Central venous bloodOrdered By: Mathieu Mcintyre on 11-08-2024 CO2 [Moles/Vol] 17.6 mmol/L Low 21.0-32.0 [facility] Chloride assayOrdered By: Robin Roberts on 11-08-2024 Chloride [Moles/Vol] 107 mmol/L Normal 98-108 [facility] Comment on above: Performed By: #### L 500.2500, L100.0100 ####[facility] [address] [place], [address] Chloride assayOrdered By: Grace Mcintyre on 11-08-2024 Chloride [Moles/Vol] 109 mmol/L High 98-108 [facility] Emergency Department Summary on 11-08-2024 Emergency Department Summary Normal [facility] Eosinophil percentageOrdered By: Frederick Roberts on 11-08-2024 Eosinophils/100 WBC (Bld) 4.8 % 0-5 [facility] Eosinophil percentageOrdered By: Mathieu Mcintyre on 11-08-2024 Eosinophils/100 WBC (Bld) 7.0 % High 0-5 [facility] Erythrocyte distribution wid th ratioOrdered By: Frederick Roberts on 11-08-2024 Erythrocyte distribution width (RBC) [Ratio] 13.2 % 11.6-14.6 [facility] Erythrocyte distribution wid th ratioOrdered By: Mathieu Mcintyre on 11-08-2024 Erythrocyte distribution width (RBC) [Ratio] 13.3 % 11.6-14.6 [facility] Erythrocyte distribution wid th standard deviationOrdered By: Frederick Roberts on 11-08-2024 Erythrocyte distribution width (RBC) [Ratio] 51.6 fl High 35.1-43.9 [facility] Erythrocyte distribution wid th standard deviationOrdered By: Mathieu Mcintyre on 11-08-2024 Erythrocyte distribution width (RBC) [Ratio] 52.8 fl High 35.1-43.9 [facility] Ferritinon 11-08-2024 Ferritin [Mass/Vol] 971 ng/mL High 37-417 [facility] Comment on above: Performed By: #### L 503.6011, L503.6550, L500.2500, L100.0100 ####[facility] [address] [place], [place], [id number] Glomerular filtration rate ( GFR) estimation/1.73 sq m using serum, plasma, or whole bOrdered By: Frederick Roberts on 11-08-2024 GFR/1.73 sq M.predicted among non-blacks MDRD (S/P/Bld) [Vol rate/Area] 24 mL/min/{1.73_m2} Low >60 [facility] Comment on above: mL/min/1.73m2 CKD-EP I Creatinine Equation (2020) Glomerular filtration rate ( GFR) estimation/1.73 sq m using serum, plasma, or whole bOrdered By: Mathieu Mcintyre on 11-08-2024 GFR/1.73 sq M.predicted among non-blacks MDRD (S/P/Bld) [Vol rate/Area] 24 mL/min/{1.73_m2} Low >60 [facility] Comment on above: mL/min/1.73m2 CKD-EP I Creatinine Equation (2020) Result Comment: mL/m in/1.73m2 CKD-EPI Creatinine Equation (2020) Performed By: #### L 500.2500, L100.0100 ####[facility] [address] [place], [place], [id number] [facility] deOrdered By: Frederick Roberts on 11-08-2024 Glucose [Mass/Vol] 223 mg/dL High 74-106 [facility] Comment on above: MANAGEMENT OF PATIEN T CARE PER NURSING PROTOCOL Hematocrit Auto (Bld) [Volum e fraction]Ordered By: Frederick Roberts on 11-08-2024 Hematocrit (Bld) [Volume fraction] 32.7 % Low 40-54 [facility] Hematocrit Auto (Bld) [Volum e fraction]Ordered By: Mathieu Mcintyre on 11-08-2024 Hematocrit (Bld) [Volume fraction] 31.1 % Low 40-54 [facility] Hemoglobin measurementOrdere d By: Frederick Roberts on 11-08-2024 Hemoglobin (Bld) [Mass/Vol] 10.6 g/dL Low 13.0-16.5 [facility] Hemoglobin measurementOrdere d By: Mathieu Mcintyre on 11-08-2024 Hemoglobin (Bld) [Mass/Vol] 10.2 g/dL Low 13.0-16.5 [facility] Immature granulocytes/100 WB C Auto (Bld)Ordered By: Frederick Roberts on 11-08-2024 Immature granulocytes/100 WBC (Bld) 0.000 % 0.0-0.9 [facility] Comment on above: IG% - Immature Granu locytes (promyelocytes, myelocytes and metamyelocytes) > 1% indicates that a LEFT SHIFT is Present. Immature granulocytes/100 WB C Auto (Bld)Ordered By: Mathieu Mcintyre on 11-08-2024 Immature granulocytes/100 WBC (Bld) 0.200 % 0.0-0.9 [facility] Comment on above: IG% - Immature Granu locytes (promyelocytes, myelocytes and metamyelocytes) > 1% indicates that a LEFT SHIFT is Present. Iron measurement (mass/mass) Ordered By: Mathieu Mcintyre on 11-08-2024 Iron (Unsp spec) [Mass/Mass] 95 ug/dL 65-175 [facility] Iron+Iron Binding Capacityon 11-08-2024 TIBC 214 ug/dL Low 250-450 [facility] Comment on above: Order Comment: K+ IRENE Iverson RAN ON SERUM AND PLASMA RESULTS MATCHED.CRITICAL VALUE CALLED TO [id number]/12/25 Chai Bernardo.RESULTS READ BACK BY SAME. Performed By: #### L 503.6030, L503.6550, L500.2500, L100.0100 ####[facility] [address] [place], [address] MCV (mean corpuscular volume ) determinationOrdered By: Frederick Roberts on 11-08-2024 MCV (RBC) [Entitic vol] 106.5 fL High 80-94 [facility] MCV (mean corpuscular volume ) determinationOrdered By: Mathieu Mcintyre on 11-08-2024 MCV (RBC) [Entitic vol] 107.2 fL High 80-94 [facility] Mean corpuscular hemoglobin (MCH) determinationOrdered By: Frederick Roberts on 11-08-2024 MCH (RBC) [Entitic mass] 34.5 pg High 27.0-32.0 [facility] Mean corpuscular hemoglobin (MCH) determinationOrdered By: Mathieu Mcintyre on 11-08-2024 MCH (RBC) [Entitic mass] 35.2 pg High 27.0-32.0 [facility] Mean corpuscular hemoglobin concentration (MCHC) determinationOrdered By: Frederick Roberts on 11-08-2024 MCHC (RBC) [Mass/Vol] 32.4 g/dL [facility] Mean corpuscular hemoglobin concentration (MCHC) determinationOrdered By: Mathieu Mcintyre on 11-08-2024 MCHC (RBC) [Mass/Vol] 32.8 g/dL [facility] Mean platelet volume determi nationOrdered By: Frederick Roberts on 11-08-2024 Platelet mean volume (Bld) [Entitic vol] 9.9 fL 6.2-12.0 [facility] Mean platelet volume determi nationOrdered By: Mathieu Mcintyre on 11-08-2024 Platelet mean volume (Bld) [Entitic vol] 9.6 fL 6.2-12.0 [facility] Monocyte percentageOrdered B y: Frederick Roberts on 11-08-2024 Monocytes/100 WBC (Bld) 10.1 % High 0-10 [facility] Monocyte percentageOrdered B y: Mathieu Mcintyre on 11-08-2024 Monocytes/100 WBC (Bld) 12.5 % High 0-10 [facility] Neutrophil percentageOrdered By: Frederick Roberts on 11-08-2024 Neutrophils/100 WBC (Bld) 67.9 % - [facility] Neutrophil percentageOrdered By: Mathieu Mcintyre on 11-08-2024 Neutrophils/100 WBC (Bld) 60.3 % 47-70 [facility] No Panel InformationOrdered By: Mathieu Mcintyre on 11-08-2024 Unsaturated Iron Binding Capacity 119 ug/dL Low 228-428 [facility] 119 ug/dL Low 228-428 [facility] Nucleated red blood cell per centageOrdered By: Frederick Roberts on 11-08-2024 Nucleated RBC/100 WBC (Bld) [Ratio] 0 % 0-5 [facility] Nucleated red blood cell per centageOrdered By: Mathieu Mcintyre on 11-08-2024 Nucleated RBC/100 WBC (Bld) [Ratio] 0 % 0-5 [facility] Oncology Visit Reporton 10-28 Oncology Visit Report Normal [facility] Platelet countOrdered By: Robin Roberts on 11-08-2024 Platelets (Bld) [#/Vol] 123 10*3/uL Low 150-450 [facility] Platelet countOrdered By: Grace Mcintyre on 11-08-2024 Platelets (Bld) [#/Vol] 118 10*3/uL Low 150-450 [facility] Potassiumon 11-08-2024 Potassium [Moles/Vol] 5.0 mmol/L Normal 3.3-5.1 [facility] Comment on above: Performed By: #### L 501.5600 ####[facility] [address] [place], [place], [id number] Potassium measurement (mass/ volume)Ordered By: Frederick Roberts on 11-08-2024 Potassium (Unsp spec) [Mass/Vol] 5.0 mmol/L 3.3-5.1 [facility] Potassium measurement (mass/ volume)Ordered By: Mathieu Mcintyre on 11-08-2024 Potassium (Unsp spec) [Mass/Vol] 6.1 mmol/L High 3.3-5.1 [facility] Comment on above: Previous reported re sult: [...] RBC (Bld) [#/Vol] 3.07 10*6/uL Low 4.6-6.2 [facility] RBC Auto (Bld) [#/Vol]Ordere d By: Mathieu Mcintyre on 11-08-2024 RBC (Bld) [#/Vol] 2.90 10*6/uL Low 4.6-6.2 [facility] Serum creatinine measurement (mass/volume)Ordered By: Frederick Roberts on 11-08-2024 Creatinine [Mass/Vol] 2.54 mg/dL High 0.70-1.20 [facility] Comment on above: Performed By: #### L 500.2500, L100.0100 ####[facility] [address] [place], [address] Serum creatinine measurement (mass/volume)Ordered By: Mathieu Mcintyre on 11-08-2024 Creatinine [Mass/Vol] 2.59 mg/dL High 0.70-1.20 [facility] Serum glucose measurement (m ass/volume)Ordered By: Frederick Roberts on 11-08-2024 Glucose [Mass/Vol] 101 mg/dL High 70-99 [facility] Comment on above: Performed By: #### L 500.2500, L100.0100 ####[facility] [address] [facility] [place], [place], [address] Serum glucose measurement (m ass/volume)Ordered By: Mathieu Mcintyre on 11-08-2024 Glucose [Mass/Vol] 93 mg/dL 70-99 [facility] Serum or plasma calcium elvia urement (mass/volume)Ordered By: Frederick Roberts on 11-08-2024 Calcium [Mass/Vol] 9.6 mg/dL Normal 7.6-11.0 [facility] Comment on above: Performed By: #### L 500.2500, L100.0100 ####[facility] [address] [place], [place], [id number] Serum or plasma calcium elvia urement (mass/volume)Ordered By: Mathieu Mcintyre on 11-08-2024 Calcium [Mass/Vol] 9.3 mg/dL 7.6-11.0 [facility] Serum or plasma ferritin pedro luis surement (mass/volume)Ordered By: Mathieu Mcintyre on 11-08-2024 Ferritin [Mass/Vol] 971 ng/mL High 37-417 [facility] Serum or plasma iron saturat ion measurement (mass fraction)Ordered By: Mathieu Mcintyre on 11-08-2024 Iron saturation [Mass fraction] 44.4 % 9-55 [facility] Comment on above: Previous reported re sult: 44.0 %Edited by: MAME on 11/08/24:1418 AMENDED REPORT 11/08/24 1418 IRON SATURATION previously reported as: 44.0 % Serum or plasma urea nitroge n measurement (mass/volume)Ordered By: Frederick Roberts on 11-08-2024 Urea nitrogen [Mass/Vol] 49 mg/dL High 4-19 [facility] Comment on above: Performed By: #### L 500.2500, L100.0100 ####[facility] [address] [place], [address] Serum or plasma urea nitroge n measurement (mass/volume)Ordered By: Mathieu Mcintyre on 11-08-2024 Urea nitrogen [Mass/Vol] 50 mg/dL High 4-19 [facility] Sodium levelOrdered By: Shankar Roberts on 11-08-2024 Sodium [Moles/Vol] 137 mmol/L Normal 133-145 [facility] Comment on above: Performed By: #### L 500.2500, L100.0100 ####[facility] [address] [place], [place], [id number] Sodium levelOrdered By: Rory Mcintyre on 11-08-2024 Sodium [Moles/Vol] 138 mmol/L 133-145 [facility] White blood cell (WBC) count Ordered By: Frederick Roberts on 11-08-2024 WBC (Bld) [#/Vol] 4.5 10*3/uL 4.4-11.0 [facility] White blood cell (WBC) count Ordered By: Mathieu Mcintyre on 11-08-2024 WBC (Bld) [#/Vol] 4.6 10*3/uL 4.4-11.0 [facility] Ankle Brachial Indexon 10-06 Ankle Brachial Index Normal [facility] Bilirubin directOrdered By: Dayne Rico on 10-06-2024 Bilirubin.direct [Mass/Vol] 0.19 mg/dL 0.00-0.30 [facility] Bilirubin, totalOrdered By: Dayne Rico on 10-06-2024 Bilirubin [Mass/Vol] 0.34 mg/dL 0.00-1.30 [facility] Calculated very low density lipoprotein (VLDL) cholesterol measurementOrdered By: Dayne Rico on 10-06-2024 Calculated very low density lipoprotein (VLDL) cholesterol measurement 12 mg/dL 5-40 [facility] VLDL Cholesterol 12 mg/dL 5-40 [facility] Carotid Duplex Ultrasoundon 10-06-2024 Carotid Duplex Ultrasound Normal [facility] LDL calc ser/plasOrdered By: Dayne Rico on 10-06-2024 Cholesterol in LDL [Mass/Vol] 45 mg/dL [facility] Comment on above: Ixvvhlaoxs=197-267 m g/dL & Higher Naca=107 mg/dL or greater LDL Cholesterol, Calculated 45 mg/dL [facility] Comment on above: Hztwxrafbw=835-441 m g/dL & Higher Wbrz=674 mg/dL or greater Laboratory - Chemistry and C hemistry - challengeOrdered By: Dayne Rico on 10-06-2024 AST [Catalytic activity/Vol] 16 U/L <38 [facility] Lipid Profileon 10-06-2024 CHOL:HDL 1.75 Normal [facility] Comment on above: Performed By: #### L 500.4100, L500.3400 ####[facility] [address] [place], [place], [phone]([phone] Cholesterol [Mass/Vol] 133 mg/dL Normal <=200 [facility] Comment on above: Result Comment: Chol esterol level, Desirable <200 mg/dLBorderline high cholesterol 200-239 mg/dLHigh cholesterol >=240 mg/dLRecommendations of the NCEP Adult Treatment Panel for thefollowing risk-cutoff thresholds for the [place] American[place]ulation. Performed By: #### L 500.4100, L500.3400 ####[facility] [address] [place], [place], [phone]) Cholesterol in HDL [Mass/Vol] 76 mg/dL Normal [facility] Comment on above: Result Comment: Anne Marie onal Cholesterol Education Program (NCEP) guidelines:<40 mg/dL: Low HDL-cholesterol (major risk factor for CHD)>= 60 mg/dL: High HDL-cholesterol (negative risk factor forCHD)HDL-cholesterol is affected by a number of factors, e.g.smoking, exercise, hormones, sex and age. Performed By: #### L 500.4100, L500.3400 ####[facility] [address] [place], [place], [phone] Cholesterol in LDL [Mass/Vol] 45 mg/dL Normal [facility] Comment on above: Result Comment: Bord nztexu=757-751 mg/dL Higher Qugh=808 mg/dL or greater Performed By: #### L 500.4100, L500.3400 ####[facility] [address] [place], [address] Cholesterol in VLDL [Mass/Vol] 12 mg/dL Normal 5-40 [facility] Comment on above: Performed By: #### L 500.4100, L500.3400 ####[facility] [address] [place], [address] Triglyceride [Mass/Vol] 58 mg/dL Normal [facility] Comment on above: Result Comment: The drugs N-Acetylcysteine and Metamizole may falselydepress this assay.Normal range: <150 mg/dLBorderline High: 150-199 mg/dLHigh: 200-499 mg/dLVery High: >500 mg/dL Performed By: #### L 500.4100, L500.3400 ####[facility] [address] [place], [address] Liver Profileon 10-06-2024 Albumin [Mass/Vol] 4.3 g/dL Normal 3.4-4.8 [facility] Comment on above: Performed By: #### L 500.4100, L500.3400 ####[facility] [address] [place], [address] ALK PHOS 84 U/L Normal 40-129 [facility] Comment on above: Performed By: #### L 500.4100, L500.3400 ####[facility] [address] [place], [address] ALT [Catalytic activity/Vol] 8 U/L Normal <=46 [facility] Comment on above: Performed By: #### L 500.4100, L500.3400 ####[facility] [address] [place], [address] AST [Catalytic activity/Vol] 16 U/L Normal <=37 [facility] Comment on above: Performed By: #### L 500.4100, L500.3400 ####[facility] [address] [place], [address] Bilirubin [Mass/Vol] 0.34 mg/dL Normal 0.00-1.30 [facility] Comment on above: Performed By: #### L 500.4100, L500.3400 ####[facility] [address] [place], [address] Bilirubin.direct [Mass/Vol] 0.19 mg/dL Normal 0.00-0.30 [facility] Comment on above: Performed By: #### L 500.4100, L500.3400 ####[facility] [address] [place], [address] Globulin (S) [Mass/Vol] 2.2 g/dL Normal 2.2-4.[address] [facility] Comment on above: Performed By: #### L 500.4100, L500.3400 ####[facility] [address] [place], [address] T PROT 6.5 g/dL Normal 5.9-8.4 [facility] Comment on above: Performed By: #### L 500.4100, L500.3400 ####[facility] [address] [place], [address] Mesenteric Artery Duplexon 0 10-06-2024 Mesenteric Artery Duplex Normal [facility] No Panel InformationOrdered By: Dayne Rico on 10-06-2024 16 U/L <38 [facility] Screening total cholesterol/ high density lipoprotein (HDL) cholesterol ratioOrdered By: Dayne Rico on 10-06-2024 Cholesterol.total/Maria E sterol in HDL [Mass ratio] 1.75 {ratio} [facility] Serum globulin measurementOr dered By: Dayne Rico on 10-06-2024 Globulin (S) [Mass/Vol] 2.2 g/dL 2.2-4.2 [facility] Serum or plasma alanine sanchez otransferase (ALT) measurementOrdered By: Dayne Rico on 10-06-2024 ALT [Catalytic activity/Vol] 8 U/L <47 [facility] Serum or plasma albumin elvia urement (mass/volume)Ordered By: Dayne Rico on 10-06-2024 Albumin [Mass/Vol] 4.3 g/dL 3.4-4.8 [facility] Serum or plasma alkaline bonnie sphatase measurementOrdered By: Dayne Rico on 10-06-2024 ALP [Catalytic activity/Vol] 84 U/L 40-129 [facility] Serum or plasma cholesterol in HDL measurement (mass/volume)Ordered By: Dayne Rico on 10-06-2024 Cholesterol in HDL [Mass/Vol] 76 mg/dL >40 [facility] Comment on above: National Cholesterol Education Program (NCEP) guidelines:<40 mg/dL: Low HDL-cholesterol (major risk factor for CHD)>= 60 mg/dL: High HDL-cholesterol (negative risk factor for CHD)HDL-cholesterol is affected by a number of factors, e.g. smoking, exercise, hormones, sex and age. Serum or plasma cholesterol measurement (mass/volume)Ordered By: Dayne Rico on 10-06-2024 Cholesterol [Mass/Vol] 133 mg/dL <201 [facility] Comment on above: Cholesterol level, D esirable <200 mg/dLBorderline high cholesterol 200-239 mg/dLHigh cholesterol >=240 mg/dLRecommendations of the NCEP Adult Treatment Panel for the following risk-cutoff thresholds for the [place] population. Total proteinOrdered By: Alon Rico on 10-06-2024 Protein [Mass/Vol] 6.5 g/dL 5.9-8.4 [facility] Triglycerides measurementOrd ered By: Dayne Rico on 10-06-2024 Triglyceride [Mass/Vol] 58 mg/dL <199 [facility] Comment on above: The drugs N-Acetylcy steine and Metamizole may falsely depress this assay. Normal range: <150 mg/dLBorderline High: 150-199 mg/dLHigh: 200-499 mg/dLVery High: >500 mg/dL Cardiology Visit Reporton Cardiology Visit Report Normal [facility] T4 Total, Thyroxinon 025 T4 [Mass/Vol] 5.8 ug/dL Normal 4.5-12.1 [facility] Comment on above: Performed By: #### L 501.9520, L501.9310 ####[facility] [address] [place], [place], [phone] TSH DL <= 0.005 mIU/L QnOrde red By: Rosa Maria Santacruz on 09-14-2024 Thyroid Stimulating Hormone (TSH) 0.827 uIU/mL 0.300-4.20 0 [facility] TSH Qn 0.827 uIU/mL 0.300-4.20 0 [facility] Thyroid Stim Hormone (TSH)on 09-14-2024 TSH 0.827 uIU/mL Normal 0.300-4.20 0 [facility] Comment on above: Performed By: #### L 501.9520, L501.9310 ####[facility] [address] [place], [address] ThyroxineOrdered By: Rosa aMria resendiz on 09-14-2024 T4 [Mass/Vol] 5.8 ug/dL 4.5-12.1 [facility] Absolute lymphocyte countOrd ered By: Hans Armendariz on 11-10-2023 Lymphocytes Auto (Unsp spec) [#/Vol] 0.95 10*3/uL 0.83-4.51 [facility] Absolute lymphocyte countOrd ered By: Mathieu Mcintyre on 11-10-2023 Lymphocytes Auto (Unsp spec) [#/Vol] 0.90 10*3/uL 0.83-4.51 [facility] Alanine aminotransferase (AL T) assayOrdered By: Mathieu Mcintyre on 11-10-2023 ALT [Catalytic activity/Vol] 12 U/L Low 16-61 [facility] Albumin to globulin ratioOrd ered By: Mathieu Mcintyre on 11-10-2023 Albumin/Globulin [Mass ratio] 1.3 {ratio} 0.9-2.4 [facility] Alkaline phosphataseOrdered By: Mathiue Mcintyre on 11-10-2023 ALP [Catalytic activity/Vol] 113 U/L 45-117 [facility] Automated lymphocyte count a s percentage of total leukocytesOrdered By: Hans Maxwellashia on 11-10-2023 Lymphocytes/100 WBC Auto (Unsp spec) 18.7 % - [facility] Automated lymphocyte count a s percentage of total leukocytesOrdered By: Mathieu Melendezisra on 11-10-2023 Lymphocytes/100 WBC Auto (Unsp spec) 16.7 % - [facility] Basophil percentageOrdered B y: Hans Armendariz on 11-10-2023 Basophils/100 WBC (Bld) 0.8 % 0-1 [facility] Chloride [Moles/Vol] 114 mmol/L 98-107 [facility] Eosinophils/100 WBC (Bld) 6.1 % 0-5 [facility] Glucose [Mass/Vol] 128 mg/dL 74-106 [facility] Comment on above: Fasting Glucose resu lt greater than or equal to 126 mg/dL suggests DIABETES MELLITUS per A.D.A. criteria. Hemoglobin (Bld) [Mass/Vol] 9.9 g/dL 13.0-16.5 [facility] Monocytes/100 WBC (Bld) 10.1 % 0-10 [facility] Neutrophils (Bld) [#/Vol] 3.3 10*3/uL 2.0-7.7 [facility] Neutrophils/100 WBC (Bld) 64.1 % 47-70 [facility] Potassium [Moles/Vol] 5.4 mmol/L 3.5-5.1 [facility] Sodium [Moles/Vol] 140 mmol/L 136-145 [facility] WBC (Bld) [#/Vol] 5.1 10*3/uL 4.4-11.0 [facility] Basophil percentageOrdered B y: Mathieu Melendezisra on 11-10-2023 Chloride [Moles/Vol] 114 mmol/L 98-107 [facility] Glucose [Mass/Vol] 114 mg/dL 74-106 [facility] Comment on above: Fasting Glucose resu lt from 100 to 125 mg/dL suggests IMPAIRED HOMEOSTASIS per A.D.A. criteria. Potassium [Moles/Vol] 6.2 mmol/L 3.5-5.1 [facility] Comment on above: Critical Result(s) C alled at: 15:38:35 11/10/2023 by: [facility] Results read back by same. Sodium [Moles/Vol] 141 mmol/L 136-145 [facility] Basophils/100 WBC (Bld) 0.9 % 0-1 [facility] Bilirubin [Mass/Vol] 0.50 mg/dL 0.20-1.00 [facility] Comment on above: For patients on eltr ombopag therapy, use of Dimension [place] TBIL is not recommended. Eosinophils/100 WBC (Bld) 8.3 % 0-5 [facility] Hemoglobin (Bld) [Mass/Vol] 9.9 g/dL 13.0-16.5 [facility] LDH [Catalytic activity/Vol] 142 U/L 87-241 [facility] Monocytes/100 WBC (Bld) 10.2 % 0-[address] [facility] Neutrophils (Bld) [#/Vol] 3.4 10*3/uL 2.0-7.7 [facility] Neutrophils/100 WBC (Bld) 63.5 % 47-70 [facility] Protein [Mass/Vol] 6.5 g/dL 6.4-8.2 [facility] WBC (Bld) [#/Vol] 5.4 10*3/uL 4.4-11.0 [facility] Determination of erythrocyte mean corpuscular volume (MCV)Ordered By: Hans Armendariz on 11-10-2023 MCV (RBC) [Entitic vol] 105.7 fL 80-94 [facility] Determination of erythrocyte mean corpuscular volume (MCV)Ordered By: Mathieu Mcintyre on 11-10-2023 MCV (RBC) [Entitic vol] 106.8 fL 80-94 [facility] Erythrocyte distribution wid th ratioOrdered By: Hans Armendariz on 11-10-2023 Erythrocyte distribution width (RBC) [Ratio] 14.0 % 11.6-14.6 [facility] Erythrocyte distribution wid th ratioOrdered By: Mathieu Mcintyre on 11-10-2023 Erythrocyte distribution width (RBC) [Ratio] 14.0 % 11.6-14.6 [facility] Erythrocyte distribution wid th standard deviationOrdered By: Hans Armendariz on 11-10-2023 Erythrocyte distribution width (RBC) [Entitic vol] 55.3 fL 35.1-43.9 [facility] Erythrocyte distribution wid th standard deviationOrdered By: Mathieu Mcintyre on 11-10-2023 Erythrocyte distribution width (RBC) [Entitic vol] 55.1 fL 35.1-43.9 [facility] Erythrocyte sedimentation ra teOrdered By: Mathieu Mcintyre on 11-10-2023 ESR (Bld) [Velocity] 1 mm/h 0-20 [facility] Hematocrit Auto (Bld) [Volum e fraction]Ordered By: Hans Armendariz on 11-10-2023 Hematocrit (Bld) [Volume fraction] 31.4 % 40-54 [facility] Hematocrit Auto (Bld) [Volum e fraction]Ordered By: Mathieu Mcintyre on 11-10-2023 Hematocrit (Bld) [Volume fraction] 31.5 % 40-54 [facility] Immature granulocytes/100 WB C Auto (Bld)Ordered By: Hans Armendariz on 11-10-2023 Immature granulocytes/100 WBC (Bld) 0.200 % 0.0-0.9 [facility] Comment on above: IG% - Immature Granu locytes (promyelocytes, myelocytes and metamyelocytes) > 1% indicates that a LEFT SHIFT is Present. Immature granulocytes/100 WB C Auto (Bld)Ordered By: Mathieu Mcintyre on 11-10-2023 Immature granulocytes/100 WBC (Bld) 0.400 % 0.0-0.9 [facility] Comment on above: IG% - Immature Granu locytes (promyelocytes, myelocytes and metamyelocytes) > 1% indicates that a LEFT SHIFT is Present. Iron measurement (mass/mass) Ordered By: Mathieu Mcintyre on 11-10-2023 Iron (Unsp spec) [Mass/Mass] 107 ug/dL 65-175 [facility] Laboratory - Chemistry and C hemistry - challengeOrdered By: Hans Armendariz on 11-10-2023 CO2 [Moles/Vol] 21.0 mmol/L 21.0-32.0 [facility] Urea nitrogen/Creatinine [Mass ratio] 22.7 mg/mg 10- [facility] Laboratory - Chemistry and C hemistry - challengeOrdered By: Mathieu Mcintyre on 11-10-2023 CO2 [Moles/Vol] 22.0 mmol/L 21.0-32.0 [facility] Urea nitrogen/Creatinine [Mass ratio] 22.9 mg/mg 04-18 [facility] AST [Catalytic activity/Vol] 11 U/L Low 15-37 [facility] Ferritin [Mass/Vol] 910 ng/mL 26-388 [facility] Laboratory - Hematology and Cell countsOrdered By: Hans Armendariz on 11-10-2023 MCH (RBC) [Entitic mass] 33.3 pg 27.0-32.0 [facility] MCHC (RBC) [Mass/Vol] 31.5 g/dL - [facility] Nucleated RBC/100 WBC (Bld) [Ratio] 0 % 0-5 [facility] Platelet mean volume (Bld) [Entitic vol] 9.5 fL 6.2-12.0 [facility] Platelets (Bld) [#/Vol] 131 10*3/uL 150-450 [facility] Laboratory - Hematology and Cell countsOrdered By: Mathieu Mcintyre on 11-10-2023 MCH (RBC) [Entitic mass] 33.6 pg 27.0-32.0 [facility] MCHC (RBC) [Mass/Vol] 31.4 g/dL - [facility] Nucleated RBC/100 WBC (Bld) [Ratio] 0 % 0-5 [facility] Platelet mean volume (Bld) [Entitic vol] 9.5 fL 6.2-12.0 [facility] Platelets (Bld) [#/Vol] 132 10*3/uL 150-450 [facility] No Panel InformationOrdered By: Hans Armendariz on 11-10-2023 Estimated Creatinine Clearance Calc 22.62 ml/min [facility] Estimated GFR (MDRD) Amer 31 mL/min >60 [facility] Comment on above: GFR Calc Estimated GFR (MDRD) Non-Af Amer 25 mL/min >60 [facility] Comment on above: Non- GFR Calc No Panel InformationOrdered By: Mathieu Mcintyre on 11-10-2023 Estimated Creatinine Clearance Calc 23.24 ml/min [facility] Estimated GFR (MDRD) Amer 32 mL/min >60 [facility] Comment on above: GFR Calc Estimated GFR (MDRD) Non-Af Amer 26 mL/min >60 [facility] Comment on above: Non- GFR Calc C-Reactive Protein Extended Range < 2.90 mg/L 0.0-3.0 [facility] Comment on above: C-Reactive Protein ( CRP) provides useful information for thediagnosis, therapy and monitoring of inflammatory processesand associated diseases. For the evaluation of Relative Riskfor Cardiovascular Disease, a High Sensitivity CRP (HSCRP)should be ordered. Total Iron Binding Capacity 206 ug/dL 250-450 [facility] 11 U/L Low 15-37 [facility] RBC Auto (Bld) [#/Vol]Ordere d By: Hans Armendariz on 11-10-2023 RBC (Bld) [#/Vol] 2.97 10*6/uL 4.6-6.2 [facility] RBC Auto (Bld) [#/Vol]Ordere d By: Mathieu Mcintyre on 11-10-2023 RBC (Bld) [#/Vol] 2.95 10*6/uL 4.6-6.2 [facility] Serum albumin measurementOrd ered By: Mathieu Mcintyre on 11-10-2023 Albumin [Mass/Vol] 3.7 g/dL 3.2-5.0 [facility] Serum globulin measurementOr dered By: Mathieu Mcintyre on 11-10-2023 Globulin (S) [Mass/Vol] 2.8 g/dL 2.2-4.2 [facility] Serum or plasma calcium elvia urement (mass/volume)Ordered By: Hans Armendariz on 11-10-2023 Calcium [Mass/Vol] 9.0 mg/dL 8.5-10.1 [facility] Serum or plasma calcium elvia urement (mass/volume)Ordered By: Mathieu Mcintyre on 11-10-2023 Calcium [Mass/Vol] 9.1 mg/dL 8.5-10.1 [facility] Serum or plasma creatinine m easurement (mass/volume)Ordered By: Hans Armendariz on 11-10-2023 Creatinine [Mass/Vol] 2.60 mg/dL 0.70-1.30 [facility] Comment on above: The validity of the calculated GFR & GFRAA in patients over 70 years has not been determined. Clinical correlation is essential. Serum or plasma creatinine m easurement (mass/volume)Ordered By: Mathieu Mcintyre on 11-10-2023 Creatinine [Mass/Vol] 2.53 mg/dL 0.70-1.30 [facility] Comment on above: The validity of the calculated GFR & GFRAA in patients over 70 years has not been determined. Clinical correlation is essential. Serum or plasma iron saturat ion measurement (mass fraction)Ordered By: Mathieu cMintyre on 11-10-2023 Iron saturation [Mass fraction] 51.9 % 15.0-55.0 [facility] Serum or plasma urea nitroge n measurement (mass/volume)Ordered By: Hans Armendariz on 11-10-2023 Urea nitrogen [Mass/Vol] 59 mg/dL 01-14 [facility] Serum or plasma urea nitroge n measurement (mass/volume)Ordered By: Mathieu Mcintyre on 11-10-2023 Urea nitrogen [Mass/Vol] 58 mg/dL 01-14 [facility] Thin prep Papanicolaou smear with manual screeningOrdered By: Hans Armendariz on 11-10-2023 Thin prep Papanicolaou smear with manual screening 5 - [facility] Thin prep Papanicolaou smear with manual screeningOrdered By: Mathieu Mcintyre on 11-10-2023 Thin prep Papanicolaou smear with manual screening 5 -15 [facility] Thin prep Papanicolaou smear with manual screening 3.7 g/dL 3.2-5.0 [facility] Thin prep Papanicolaou smear with manual screening 11 U/L 15-37 [facility] Anaerobic cultureOrdered By: Warren Sampson on 09-03-2023 Bacteria identified Anaer cx Nom (Unsp spec) No anaerobic bacteria isolated. [facility] Fungus cultureOrdered By: Grace Sampson on 09-03-2023 Fungus identified Cx Nom (Unsp spec) [facility] Gram stain for investigation of transfusion reactionOrdered By: Warren Sampson on 09-03-2023 Microscopic observation Gram stain Nom (Unsp spec) [facility] Routine wound cultureOrdered By: Warren Sampson on 09-03-2023 Bacteria identified Cx Nom (Wound) No growth aerobically. [facility] Basophil percentageOrdered B y: Rosa Maria Santacruz on 08-19-2023 Basophil percentage 118 mg/dL 74-106 [facility] Basophil percentage 140 mmol/L 136-145 [facility] Basophil percentage 4.8 mmol/L 3.5-5.1 [facility] Basophil percentage 110 mmol/L 98-107 [facility] Chloride [Moles/Vol] 110 mmol/L 98-107 [facility] Glucose [Mass/Vol] 118 mg/dL 74-106 [facility] Comment on above: Fasting Glucose resu lt from 100 to 125 mg/dL suggests IMPAIRED HOMEOSTASIS per A.D.A. criteria. Potassium [Moles/Vol] 4.8 mmol/L 3.5-5.1 [facility] Sodium [Moles/Vol] 140 mmol/L 136-145 [facility] Laboratory - Chemistry and C hemistry - challengeOrdered By: Rosa Maria Santacruz on 08-19-2023 CO2 [Moles/Vol] 23.0 mmol/L 21.0-32.0 [facility] Urea nitrogen/Creatinine [Mass ratio] 22.2 mg/mg 04-18 [facility] No Panel InformationOrdered By: Rosa Maria Santacruz on 08-19-2023 Estimated GFR (MDRD) Amer 26 mL/min >60 [facility] Comment on above: GFR Calc Estimated GFR (MDRD) Non-Af Amer 22 mL/min >60 [facility] Comment on above: Non- GFR Calc 22 mL/min >60 [facility] 26 mL/min >60 [facility] 22.2 RATIO 04-18 [facility] 23.0 mmol/L 21.0-32.0 [facility] Serum or plasma calcium elvia urement (mass/volume)Ordered By: Rosa Maria Santacruz on 08-19-2023 Calcium [Mass/Vol] 8.9 mg/dL 8.5-10.1 [facility] Serum or plasma creatinine m easurement (mass/volume)Ordered By: Rosa Maria Santacruz on 08-19-2023 Creatinine [Mass/Vol] 2.97 mg/dL 0.70-1.30 [facility] Comment on above: The validity of the calculated GFR & GFRAA in patients over 70 years has not been determined. Clinical correlation is essential. Serum or plasma urea nitroge n measurement (mass/volume)Ordered By: Rosa Maria Santacruz on 08-19-2023 Urea nitrogen [Mass/Vol] 66 mg/dL 7-18 [facility] Thin prep Papanicolaou smear with manual screeningOrdered By: Rosa Maria Santacruz on 08-19-2023 Thin prep Papanicolaou smear with manual screening 7 5-15 [facility] Absolute lymphocyte countOrd ered By: Mathieu Mcintyre on 08-18-2023 Lymphocytes Auto (Unsp spec) [#/Vol] 0.86 10*3/uL 0.83-4.51 [facility] Automated lymphocyte count a s percentage of total leukocytesOrdered By: Mathieu Mcintyre on 08-18-2023 Lymphocytes/100 WBC Auto (Unsp spec) 13.8 % 19-41 [facility] Basophil percentageOrdered B y: Mathieu Mcintyre on 08-18-2023 Basophil percentage 5.7 mmol/L 3.5-5.1 [facility] Basophil percentage 10.7 g/dL 13.0-16.5 [facility] Basophil percentage 127 mg/dL 74-106 [facility] Basophil percentage 6.6 g/dL 6.4-8.2 [facility] Basophil percentage 0.40 mg/dL 0.20-1.00 [facility] Basophil percentage 137 mmol/L 136-145 [facility] Basophil percentage 110 mmol/L 98-107 [facility] Basophil percentage 141 U/L 87-241 [facility] Basophils (Bld) [#/Vol] 6.2 10*3/uL 4.4-11.0 [facility] Basophils (Bld) [#/Vol] 4.3 10*3/uL 2.0-7.7 [facility] Basophils/100 WBC (Bld) 68.7 % 47-70 [facility] Basophils/100 WBC (Bld) 10.4 % 0-10 [facility] Basophils/100 WBC (Bld) 6.3 % 0-5 [facility] Basophils/100 WBC (Bld) 0.6 % 0-1 [facility] Determination of erythrocyte mean corpuscular volume (MCV)Ordered By: Mathieu Mcintyre on 08-18-2023 MCV (RBC) [Entitic vol] 109.9 fL 80-94 [facility] Erythrocyte distribution wid th ratioOrdered By: Mathieu Mcintyre on 08-18-2023 Erythrocyte distribution width (RBC) [Ratio] 13.8 % 11.6-14.6 [facility] Erythrocyte distribution wid th standard deviationOrdered By: Mathieu Mcintyre on 08-18-2023 Erythrocyte distribution width (RBC) [Entitic vol] 56.3 fL 35.1-43.9 [facility] Hematocrit Auto (Bld) [Volum e fraction]Ordered By: Mathieu Mcintyre on 08-18-2023 Hematocrit (Bld) [Volume fraction] 33.4 % 40-54 [facility] Immature granulocytes/100 WB C Auto (Bld)Ordered By: Mathieu Mcintyre on 08-18-2023 Immature granulocytes/100 WBC (Bld) 0.200 % 0.0-0.9 [facility] Iron measurement (mass/mass) Ordered By: Mathieu Mcintyre on 08-18-2023 Iron (Unsp spec) [Mass/Mass] 83 ug/dL 65-175 [facility] No Panel InformationOrdered By: Mathieu Mcintyre on 08-18-2023 35.2 pg 27.0-32.0 [facility] 32.0 g/dL 32-36 [facility] 112 K/mm3 150-450 [facility] 8.9 fl 6.2-12.0 [facility] 0 % 0-5 [facility] 23 mL/min >60 [facility] 28 mL/min >60 [facility] 20.63 ml/min [facility] 22.1 RATIO 10-20 [facility] 2.8 g/dL 2.2-4.2 [facility] 1.4 RATIO 0.9-2.4 [facility] 112 U/L 45-117 [facility] 11 U/L 16-61 [facility] 22.0 mmol/L 21.0-32.0 [facility] 242 ug/dL 250-450 [facility] 1275 ng/mL 26-388 [facility] RBC Auto (Bld) [#/Vol]Ordere d By: Mathieu Mcintyre on 08-18-2023 RBC (Bld) [#/Vol] 3.04 10*6/uL 4.6-6.2 [facility] Serum or plasma calcium elvia urement (mass/volume)Ordered By: Mathieu Mcintyre on 08-18-2023 Calcium [Mass/Vol] 8.7 mg/dL 8.5-10.1 [facility] Serum or plasma creatinine m easurement (mass/volume)Ordered By: Mathieu Mcintyre on 08-18-2023 Creatinine [Mass/Vol] 2.85 mg/dL 0.70-1.30 [facility] Serum or plasma iron saturat ion measurement (mass fraction)Ordered By: Mathieu Mcintyre on 08-18-2023 Iron saturation [Mass fraction] 34.3 % 15.0-55.0 [facility] Serum or plasma urea nitroge n measurement (mass/volume)Ordered By: Mathieu Mcintyre on 08-18-2023 Urea nitrogen [Mass/Vol] 63 mg/dL 7-18 [facility] Thin prep Papanicolaou smear with manual screeningOrdered By: Mathieu Mcintyre on 08-18-2023 Thin prep Papanicolaou smear with manual screening 3.8 g/dL 3.2-5.0 [facility] Thin prep Papanicolaou smear with manual screening 9 U/L 15-37 [facility] Thin prep Papanicolaou smear with manual screening 5 5-15 [facility] Absolute lymphocyte countOrd ered By: Mathieu Mcintyre on 07-07-2023 Lymphocytes Auto (Unsp spec) [#/Vol] 0.65 10*3/uL 0.83-4.51 [facility] Basophil percentageOrdered B y: Mathieu Mcintyre on 07-07-2023 Basophil percentage 98 mg/dL 74-106 [facility] Basophil percentage 6.2 g/dL 6.4-8.2 [facility] Basophil percentage 0.40 mg/dL 0.20-1.00 [facility] Basophil percentage 143 mmol/L 136-145 [facility] Basophil percentage 4.5 mmol/L 3.5-5.1 [facility] Basophil percentage 112 mmol/L 98-107 [facility] Basophil percentage 158 U/L 87-241 [facility] Basophils (Bld) [#/Vol] 3.7 10*3/uL 4.4-11.0 [facility] Basophils (Bld) [#/Vol] 2.5 10*3/uL 2.0-7.7 [facility] Basophils/100 WBC (Bld) 66.9 % 47-70 [facility] Basophils/100 WBC (Bld) 3.8 % 0-5 [facility] Basophils/100 WBC (Bld) 1.1 % 0-1 [facility] Blood erythrocytes count (nu mber/volume)Ordered By: Mathieu Mcintyre on 07-07-2023 RBC (Bld) [#/Vol] 2.30 10*6/uL 4.6-6.2 [facility] Blood hemoglobin measurement (mass/volume)Ordered By: Mathieu Mcintyre on 07-07-2023 Hemoglobin (Bld) [Mass/Vol] 7.9 g/dL 13.0-16.5 [facility] Blood lymphocytes/100 leukoc ytesOrdered By: Mathieu Mcintyre on 07-07-2023 Lymphocytes/100 WBC (Bld) 17.6 % 19-41 [facility] Blood monocytes/100 leukocyt esOrdered By: Mathieu Mcintyre on 07-07-2023 Monocytes/100 WBC (Bld) 10.3 % 0-10 [facility] Blood platelet mean volumeOr dered By: Mathieu Mcintyre on 07-07-2023 Platelet mean volume (Bld) [Entitic vol] 9.8 fL 6.2-12.0 [facility] Determination of erythrocyte mean corpuscular volume (MCV)Ordered By: Mathieu Mcintyre on 07-07-2023 MCV (RBC) [Entitic vol] 113.9 fL 80-94 [facility] Hematocrit Auto (Bld) [Volum e fraction]Ordered By: Mathieu Mcintyre on 07-07-2023 Hematocrit (Bld) [Volume fraction] 26.2 % 40-54 [facility] Iron measurement (mass/mass) Ordered By: Mathieu Mcintyre on 07-07-2023 Iron (Unsp spec) [Mass/Mass] 51 ug/dL 65-175 [facility] Laboratory - Hematology and Cell countsOrdered By: Mathieu Mcintyre on 07-07-2023 Anisocytosis Ql (Bld) 2+ [facility] MCHC Auto (RBC) [Mass/Vol]Or dered By: Mathieu Mcintyre on 07-07-2023 MCHC (RBC) [Mass/Vol] 30.2 g/dL 32-36 [facility] No Panel InformationOrdered By: Mathieu Mcintyre on 07-07-2023 34.3 pg 27.0-32.0 [facility] 16.2 % 11.6-14.6 [facility] 69.3 fl 35.1-43.9 [facility] 0.300 % 0.0-0.9 [facility] 0 % 0-5 [facility] 2+ [facility] 22 mL/min >60 [facility] 26 mL/min >60 [facility] 20.41 ml/min [facility] 19.7 RATIO 10-20 [facility] 2.9 g/dL 2.2-4.2 [facility] 91 U/L 45-117 [facility] 12 U/L 16-61 [facility] 25.0 mmol/L 21.0-32.0 [facility] 239 ug/dL 250-450 [facility] Platelets bldOrdered By: Anderson Mcintyre on 07-07-2023 Platelets (Bld) [#/Vol] 130 10*3/uL 150-450 [facility] Serum or plasma albumin elvia urement (mass/volume)Ordered By: Mathieu Mcintyre on 07-07-2023 Albumin [Mass/Vol] 3.3 g/dL 3.2-5.0 [facility] Serum or plasma albumin/glob ulin mass ratioOrdered By: Mathieu Mcintyre on 07-07-2023 Albumin/Globulin [Mass ratio] 1.1 {ratio} 0.9-2.4 [facility] Serum or plasma calcium elvia urement (mass/volume)Ordered By: Mathieu Mcintyre on 07-07-2023 Calcium [Mass/Vol] 8.6 mg/dL 8.5-10.1 [facility] Serum or plasma creatinine m easurement (mass/volume)Ordered By: Mathieu Mcintyre on 07-07-2023 Creatinine [Mass/Vol] 2.95 mg/dL 0.70-1.30 [facility] Serum or plasma ferritin pedro luis surement (mass/volume)Ordered By: Mathieu Mcintyre on 07-07-2023 Ferritin [Mass/Vol] 446 ng/mL 26-388 [facility] Serum or plasma iron saturat ion measurement (mass fraction)Ordered By: Mathieu Mcintyre on 07-07-2023 Iron saturation [Mass fraction] 21.3 % 15.0-55.0 [facility] Serum or plasma urea nitroge n measurement (mass/volume)Ordered By: Mathieu Mcintyre on 07-07-2023 Urea nitrogen [Mass/Vol] 58 mg/dL 7-18 [facility] Thin prep Papanicolaou smear with manual screeningOrdered By: Mathieu Mcintyre on 07-07-2023 Thin prep Papanicolaou smear with manual screening 13 U/L 15-37 [facility] Thin prep Papanicolaou smear with manual screening 6 5-15 [facility] Absolute lymphocyte countOrd ered By: Priya Sheehan on 06-25-2023 Lymphocytes Auto (Unsp spec) [#/Vol] 0.46 10*3/uL 0.83-4.51 [facility] Basophil percentageOrdered B y: Priya Sheehan on 06-25-2023 Basophil percentage 63 mg/dL 74-106 [facility] Basophil percentage 143 mmol/L 136-145 [facility] Basophil percentage 5.1 mmol/L 3.5-5.1 [facility] Basophil percentage 111 mmol/L 98-107 [facility] Basophils (Bld) [#/Vol] 3.3 10*3/uL 4.4-11.0 [facility] Basophils (Bld) [#/Vol] 2.3 10*3/uL 2.0-7.7 [facility] Basophils/100 WBC (Bld) 69.7 % 47-70 [facility] Basophils/100 WBC (Bld) 5.8 % 0-5 [facility] Basophils/100 WBC (Bld) 0.9 % 0-1 [facility] Blood erythrocytes count (nu mber/volume)Ordered By: Priya Sheehan on 06-25-2023 RBC (Bld) [#/Vol] 2.13 10*6/uL 4.6-6.2 [facility] Blood hemoglobin measurement (mass/volume)Ordered By: Priya Sheehan on 06-25-2023 Hemoglobin (Bld) [Mass/Vol] 7.4 g/dL 13.0-16.5 [facility] Blood lymphocytes/100 leukoc ytesOrdered By: Priya Sheehan on 06-25-2023 Lymphocytes/100 WBC (Bld) 14.1 % 19-41 [facility] Blood manual differential co mment interpretation (narrative result)Ordered By: Priya Sheehan on 06-25-2023 Manual differential comment Eric (Bld) [Interp] SCANNED [facility] Blood monocytes/100 leukocyt esOrdered By: Priya Sheehan on 06-25-2023 Monocytes/100 WBC (Bld) 9.2 % 0-10 [facility] Blood platelet adequacy dete ction by light microscopyOrdered By: Priya Sheehan on 06-25-2023 Platelets LM Ql (Bld) SLT DEC ADEQ [facility] Blood platelet mean volumeOr dered By: Priya Sheehan on 06-25-2023 Platelet mean volume (Bld) [Entitic vol] 10.5 fL 6.2-12.0 [facility] Determination of erythrocyte mean corpuscular volume (MCV)Ordered By: Priya Sheehan on 06-25-2023 MCV (RBC) [Entitic vol] 112.2 fL 80-94 [facility] Glucose Glucometer (BldC) [M ass/Vol]Ordered By: Priya Sheehan on 06-25-2023 Glucose [Mass/Vol] 82 mg/dL 74-106 [facility] Hematocrit Auto (Bld) [Volum e fraction]Ordered By: Priya Sheehan on 06-25-2023 Hematocrit (Bld) [Volume fraction] 23.9 % 40-54 [facility] MCHC Auto (RBC) [Mass/Vol]Or dered By: Priya Sheehan on 06-25-2023 MCHC (RBC) [Mass/Vol] 31.0 g/dL 32-36 [facility] No Panel InformationOrdered By: Priya Sheehan on 06-25-2023 34.7 pg 27.0-32.0 [facility] 17.2 % 11.6-14.6 [facility] 71.7 fl 35.1-43.9 [facility] 0.300 % 0.0-0.9 [facility] 0 % 0-5 [facility] RARE [facility] 28 mL/min >60 [facility] 33 mL/min >60 [facility] 24.82 ml/min [facility] 18.7 RATIO 10-20 [facility] 27.0 mmol/L 21.0-32.0 [facility] Platelets bldOrdered By: Annalise Sheehan on 06-25-2023 Platelets (Bld) [#/Vol] 83 10*3/uL 150-450 [facility] Review by pathologistOrdered By: Priya Sheehan on 06-25-2023 Pathologist review Eric (Unsp spec) [Interp] October [facility] Pathologist review Eric (Unsp spec) [Interp] Reviewed [facility] Serum or plasma calcium elvia urement (mass/volume)Ordered By: Priya Sheehan on 06-25-2023 Calcium [Mass/Vol] 8.2 mg/dL 8.5-10.1 [facility] Serum or plasma creatinine m easurement (mass/volume)Ordered By: Priya Sheehan on 06-25-2023 Creatinine [Mass/Vol] 2.41 mg/dL 0.70-1.30 [facility] Serum or plasma urea nitroge n measurement (mass/volume)Ordered By: Priya Sheehan on 06-25-2023 Urea nitrogen [Mass/Vol] 45 mg/dL 7-18 [facility] Thin prep Papanicolaou smear with manual screeningOrdered By: Priya Sheehan on 06-25-2023 Thin prep Papanicolaou smear with manual screening 5 5-15 [facility] Lower GI hemoglobin IA Ql (S tl)Ordered By: Priya Sheehan on 06-24-2023 Stool gastrointestinal hemoglobin detection by immunologic method Positive [facility] Stool gastrointestinal hemoglobin detection by immunologic method Positive [facility] Macrocytes detectionOrdered By: Priya Sheehan on 12-26-2023 Macrocytes Ql (Bld) 1+ [facility] No Panel InformationOrdered By: Irving Horowitz on 06-24-2023 370 pg/mL 211-911 [facility] See comment [facility] Not Reportable [facility] Serum IgA measurement (units /volume)Ordered By: Irving Horowitz on 06-24-2023 IgA Qn (S) Not Reportable [facility] Serum or plasma folate measu rement (mass/volume)Ordered By: Irving Horowitz on 06-24-2023 Folate [Mass/Vol] 21.00 ng/mL 3.1-55.4 [facility] Serum parietal cell antibody assay (units/volume)Ordered By: Irving Horowitz on 06-24-2023 Parietal cell Ab Qn (S) See comment [facility] Serum tissue transglutaminas e IgA antibody assay (units/volume)Ordered By: Irving Horowitz on 06-24-2023 tTG IgA Qn (S) Not Reportable [facility] Thin prep Papanicolaou smear with manual screeningOrdered By: Priya Sheehan on 06-24-2023 Thin prep Papanicolaou smear with manual screening 1+ [facility] Basophil percentageOrdered B y: Oniel Moulton on 06-23-2023 Basophil percentage 0 SEEN /hpf 0-5 [facility] Bilirubin Test strip Ql (U)O rdered By: Oniel Moulton on 06-23-2023 Bilirubin Ql (U) Negative Negative [facility] Ketones Test strip Ql (U)Ord ered By: Oniel Moulton on 06-23-2023 Ketones Ql (U) Negative Negative [facility] Mucus LM Ql (Urine sed)Order ed By: Oniel Moulton on 06-23-2023 Mucus Ql (Urine sed) 0 SEEN /hpf [facility] Nitrite Test strip Ql (U)Ord ered By: Oniel Moulton on 06-23-2023 Nitrite Ql (U) Negative Negative [facility] Protein Test strip Ql (U)Ord ered By: Oniel Moulton on 06-23-2023 Protein Ql (U) Negative Negative [facility] Squamous epithelial cells de tection in urine sediment by light microscopyOrdered By: Oniel Moulton on 06-23-2023 Epithelial cells.squamous LM Ql (Urine sed) 0 SEEN /hpf 0-5 [facility] Urine blood detectionOrdered By: Oniel Moulton on 06-23-2023 RBC Ql (U) Negative Negative [facility] RBC Ql (U) 0 SEEN /hpf 0-5 [facility] Urine clarityOrdered By: Al Moulton on 06-23-2023 Clarity (U) Clear Clear [facility] Urine color determinationOrd ered By: Oniel Moulton on 06-23-2023 Color (U) Yellow Yellow [facility] Urine glucose detectionOrder ed By: Oniel Moulton on 06-23-2023 Glucose Ql (U) Normal mg/dl Normal [facility] Urine leukocyte esterase det ection by dipstickOrdered By: Oniel Moulton on 06-23-2023 Leukocyte esterase Test strip Ql (U) Negative Negative [facility] Urine pHOrdered By: Oniel Moulton on 06-23-2023 pH (U) 7.0 [pH] 5.0 - 8.0 [facility] Urine sediment bacteria coun t by microscopy (number/high power field)Ordered By: Oniel Moulton on 06-23-2023 Bacteria LM.HPF (Urine sed) [#/Area] 0 /[HPF] None Seen [facility] Urine specific gravity measu rementOrdered By: Oniel Moulton on 06-23-2023 Specific gravity (U) [Rel density] 1.010 1.002-1.03 0 [facility] Urobilinogen Auto test strip Ql (U)Ordered By: Oniel Moulton on 06-23-2023 Urobilinogen Ql (U) Normal mg/dl Normal [facility] Iron measurement (mass/mass) Ordered By: Priya Sheehan on 06-22-2023 Iron (Unsp spec) [Mass/Mass] 34 ug/dL 65-175 [facility] No Panel InformationOrdered By: Priya Sheehan on 06-22-2023 204 ug/dL 250-450 [facility] Serum or plasma ferritin pedro luis surement (mass/volume)Ordered By: Priya Sheehan on 06-22-2023 Ferritin [Mass/Vol] 399 ng/mL 26-388 [facility] Serum or plasma iron saturat ion measurement (mass fraction)Ordered By: Priya Sheehan on 06-22-2023 Iron saturation [Mass fraction] 16.7 % 15.0-55.0 [facility] Assessment of wrist artery p atency prior to arterial punctureOrdered By: Priya Sheehan on 06-21-2023 Arterial patency Wrist artery --pre arterial puncture Positive [facility] Base excessOrdered By: Priya Sheehan on 06-21-2023 Base excess Calc (BldV) [Moles/Vol] -2 mmol/L -2-2 [facility] Basophil percentageOrdered B y: Priya Sheehan on 06-21-2023 Basophil percentage 23.2 mmol/L 22-26 [facility] Basophils/100 WBC (Bld) 86 % 95-99 [facility] Basophil percentageOrdered B y: Jackie Lucerojohn on 06-21-2023 Basophil percentage 4.0 mg/dL 2.5-4.9 [facility] CO2 (BldA) [Partial pressure ]Ordered By: Priya Sheehan on 06-21-2023 CO2 (Bld) [Partial pressure] 39.1 mm[Hg] 35-45 [facility] Hemoglobin in reticulocytes (mass per reticulocyte)Ordered By: Oniel Moulton on 06-21-2023 Hemoglobin (Reticulocytes) [Entitic mass] 29.7 pg 30-35 [facility] No Panel InformationOrdered By: Priya Sheehan on 06-21-2023 ART [facility] L Radial [facility] Not entered [facility] HFNC [facility] 8.0 [facility] 24 mmol/L [facility] 976.4 pg/mL 0-100 [facility] No Panel InformationOrdered By: Oniel Moulton on 06-21-2023 2.81 % 0.5-1.5 [facility] 11.10 % 3.00-15.90 [facility] 3.7 % 1.0-7.9 [facility] 1.61 uIU/mL 0.358-3.74 [facility] 1.17 ng/dL 0.76-1.46 [facility] Ovalocyte detectionOrdered B y: Oniel Moulton on 06-21-2023 Ovalocytes LM Ql (Bld) RARE [facility] Oxygen (BldA) [Partial press ure]Ordered By: Priya Sissy on 06-21-2023 Oxygen (Bld) [Partial pressure] 52 mmHG 75-100 [facility] Serum or plasma albumin elvia urement (mass/volume)Ordered By: Jackie Myrick on 06-21-2023 Albumin [Mass/Vol] 2.7 g/dL 3.2-5.0 [facility] pH measurementOrdered By: Linda Sheehan on 06-21-2023 pH (Unsp spec) 7.38 [pH] 7.35-7.45 [facility] Absolute lymphocyte countOrd ered By: Jakob Nowak on 06-20-2023 Lymphocytes Auto (Unsp spec) [#/Vol] 0.49 10*3/uL 0.83-4.51 [facility] Basophil percentageOrdered B y: Jakob Nowak on 06-20-2023 Basophil percentage 113 mg/dL 74-106 [facility] Basophil percentage 143 mmol/L 136-145 [facility] Basophil percentage 6.0 mmol/L 3.5-5.1 [facility] Basophil percentage 119 mmol/L 98-107 [facility] Basophils (Bld) [#/Vol] 3.7 10*3/uL 4.4-11.0 [facility] Basophils (Bld) [#/Vol] 2.7 10*3/uL 2.0-7.7 [facility] Basophils/100 WBC (Bld) 73.4 % 47-70 [facility] Basophils/100 WBC (Bld) 1.6 % 0-5 [facility] Basophils/100 WBC (Bld) 0.5 % 0-1 [facility] Basophil percentageOrdered B y: Oniel Moulton on 06-20-2023 Basophil percentage 5.5 g/dL 6.4-8.2 [facility] Basophil percentage 0.40 mg/dL 0.20-1.00 [facility] Blood erythrocytes count (nu mber/volume)Ordered By: Jakob Nowak on 06-20-2023 RBC (Bld) [#/Vol] 2.24 10*6/uL 4.6-6.2 [facility] Blood hemoglobin measurement (mass/volume)Ordered By: Jakob Nowak on 06-20-2023 Hemoglobin (Bld) [Mass/Vol] 7.8 g/dL 13.0-16.5 [facility] Blood lymphocytes/100 leukoc ytesOrdered By: Jakob Nowka on 06-20-2023 Lymphocytes/100 WBC (Bld) 13.3 % 19-41 [facility] Blood manual differential co mment interpretation (narrative result)Ordered By: Jakob Nowak on 06-20-2023 Manual differential comment Eric (Bld) [Interp] SCANNED [facility] Blood monocytes/100 leukocyt esOrdered By: Jakob Nowak on 06-20-2023 Monocytes/100 WBC (Bld) 10.9 % 0-10 [facility] Blood platelet adequacy dete ction by light microscopyOrdered By: Jakob Nowak on 06-20-2023 Platelets LM Ql (Bld) MOD DEC ADEQ [facility] Blood platelet mean volumeOr dered By: Jakob Nowak on 06-20-2023 Platelet mean volume (Bld) [Entitic vol] 10.7 fL 6.2-12.0 [facility] Determination of erythrocyte mean corpuscular volume (MCV)Ordered By: Jakob Nowak on 06-20-2023 MCV (RBC) [Entitic vol] 112.9 fL 80-94 [facility] Direct bilirubinOrdered By: Oniel Moulton on 06-20-2023 Bilirubin.direct [Mass/Vol] 0.14 mg/dL 0.00-0.30 [facility] Glucose Glucometer (BldC) [M ass/Vol]Ordered By: Jakob Nowak on 06-20-2023 Glucose [Mass/Vol] 135 mg/dL 74-106 [facility] Hematocrit Auto (Bld) [Volum e fraction]Ordered By: Jakob Nowak on 06-20-2023 Hematocrit (Bld) [Volume fraction] 25.3 % 40-54 [facility] MCHC Auto (RBC) [Mass/Vol]Or dered By: Jakob Nowak on 06-20-2023 MCHC (RBC) [Mass/Vol] 30.8 g/dL 32-36 [facility] No Panel InformationOrdered By: Jackie Myrick on 06-20-2023 53 U/L 39-308 [facility] No Panel InformationOrdered By: Jakob Nowak on 06-20-2023 25 mL/min >60 [facility] 31 mL/min >60 [facility] 23.10 ml/min [facility] 19.7 RATIO 10-20 [facility] 71 pg/mL 3.0-78.0 [facility] 22.0 mmol/L 21.0-32.0 [facility] 34.8 pg 27.0-32.0 [facility] 19.5 % 11.6-14.6 [facility] 81.2 fl 35.1-43.9 [facility] 0.300 % 0.0-0.9 [facility] 0 % 0-5 [facility] 2+ [facility] No Panel InformationOrdered By: Oniel Moulton on 06-20-2023 2.5 g/dL 2.2-4.2 [facility] 108 U/L 45-117 [facility] 14 U/L 16-61 [facility] 2.0 mg/dL 1.6-2.6 [facility] Platelets bldOrdered By: Catalina Nowak on 06-20-2023 Platelets (Bld) [#/Vol] 97 10*3/uL 150-450 [facility] Review by pathologistOrdered By: Jakob Nowak on 06-20-2023 Pathologist review Eric (Unsp spec) [Interp] October [facility] Serum or plasma calcium elvia urement (mass/volume)Ordered By: Jakob Nowak on 06-20-2023 Calcium [Mass/Vol] 9.3 mg/dL 8.5-10.1 [facility] Serum or plasma creatinine m easurement (mass/volume)Ordered By: Jakob Nowak on 06-20-2023 Creatinine [Mass/Vol] 2.59 mg/dL 0.70-1.30 [facility] Serum or plasma urea nitroge n measurement (mass/volume)Ordered By: Jakob Nowak on 06-20-2023 Urea nitrogen [Mass/Vol] 51 mg/dL 7-18 [facility] Thin prep Papanicolaou smear with manual screeningOrdered By: Jakob Nowak on 06-20-2023 Thin prep Papanicolaou smear with manual screening 2 5-15 [facility] Thin prep Papanicolaou smear with manual screeningOrdered By: Oniel Moulton on 06-20-2023 Thin prep Papanicolaou smear with manual screening 37 U/L 15-37 [facility] Anaerobic cultureOrdered By: Warren Sampson on 06-04-2023 Bacteria identified Anaer cx Nom (Unsp spec) No anaerobic bacteria isolated. [facility] Bacteria identified Anaer cx Nom (Unsp spec) No anaerobic bacteria isolated. [facility] Bacteria identified Cx Nom ( Wound)Ordered By: Warren Sampson on 06-04-2023 Routine wound culture Klebsiella pneumon iae sp pneum [facility] Routine wound culture Meth. resistant St aph. aureus [facility] Routine wound culture Corynebacterium striatum [facility] Routine wound culture Pseudomonas aeruginosa [facility] Routine wound culture Klebsiella pneumon iae sp pneum [facility] Routine wound culture Meth. resistant St aph. aureus [facility] Routine wound culture Corynebacterium striatum [facility] Routine wound culture Pseudomonas aeruginosa [facility] Gram stain for investigation of transfusion reactionOrdered By: Warren Sampson on 06-04-2023 Microscopic observation Gram stain Nom (Unsp spec) [facility] Microscopic observation Gram stain Nom (Unsp spec) [facility] Absolute lymphocyte countOrd ered By: Warren Sampson on 04-16-2023 Lymphocytes Auto (Unsp spec) [#/Vol] 0.76 10*3/uL 0.83-4.51 [facility] Basophil percentageOrdered B y: Warren Sampson on 04-16-2023 Basophil percentage 110 mg/dL 74-106 [facility] Basophil percentage 142 mmol/L 136-145 [facility] Basophil percentage 5.1 mmol/L 3.5-5.1 [facility] Basophil percentage 114 mmol/L 98-107 [facility] Basophils (Bld) [#/Vol] 4.6 10*3/uL 4.4-11.0 [facility] Basophils (Bld) [#/Vol] 2.9 10*3/uL 2.0-7.7 [facility] Basophils/100 WBC (Bld) 64.1 % 47-70 [facility] Basophils/100 WBC (Bld) 6.1 % 0-5 [facility] Basophils/100 WBC (Bld) 1.1 % 0-1 [facility] Chloride [Moles/Vol] 114 mmol/L 98-107 [facility] Eosinophils/100 WBC (Bld) 6.1 % 0-5 [facility] Glucose [Mass/Vol] 110 mg/dL 74-106 [facility] Comment on above: Fasting Glucose resu lt from 100 to 125 mg/dL suggests IMPAIRED HOMEOSTASIS per A.D.A. criteria. Neutrophils (Bld) [#/Vol] 2.9 10*3/uL 2.0-7.7 [facility] Neutrophils/100 WBC (Bld) 64.1 % 47-70 [facility] Potassium [Moles/Vol] 5.1 mmol/L 3.5-5.1 [facility] Sodium [Moles/Vol] 142 mmol/L 136-145 [facility] WBC (Bld) [#/Vol] 4.6 10*3/uL 4.4-11.0 [facility] Blood erythrocytes count (nu mber/volume)Ordered By: Warren Sampson on 04-16-2023 RBC (Bld) [#/Vol] 3.14 10*6/uL 4.6-6.2 [facility] Blood hemoglobin measurement (mass/volume)Ordered By: Warren Sampson on 04-16-2023 Hemoglobin (Bld) [Mass/Vol] 10.4 g/dL 13.0-16.5 [facility] Blood lymphocytes/100 leukoc ytesOrdered By: Warern Sampson on 04-16-2023 Lymphocytes/100 WBC (Bld) 16.7 % 19-41 [facility] Blood manual differential co mment interpretation (narrative result)Ordered By: Warren Sampson on 04-16-2023 Manual differential comment Eric (Bld) [Interp] SCANNED [facility] Comment on above: 1+ [facility] Blood monocytes/100 leukocyt esOrdered By: Warren Sampson on 04-16-2023 Monocytes/100 WBC (Bld) 11.8 % 0-10 [facility] Blood platelet mean volumeOr dered By: Warren Sampson on 04-16-2023 Platelet mean volume (Bld) [Entitic vol] 10.5 fL 6.2-12.0 [facility] Determination of erythrocyte mean corpuscular volume (MCV)Ordered By: Warren Sampson on 04-16-2023 MCV (RBC) [Entitic vol] 106.4 fL 80-94 [facility] Erythrocyte sedimentation ra teOrdered By: Warren Sampson on 04-16-2023 ESR (Bld) [Velocity] 6 mm/h 0-20 [facility] Hematocrit Auto (Bld) [Volum e fraction]Ordered By: Warren Sampson on 04-16-2023 Hematocrit (Bld) [Volume fraction] 33.4 % 40-54 [facility] Laboratory - Chemistry and C hemistry - challengeOrdered By: Warren Sampson on 04-16-2023 CO2 [Moles/Vol] 22.0 mmol/L 21.0-32.0 [facility] Urea nitrogen/Creatinine [Mass ratio] 20.9 mg/mg 10-20 [facility] Laboratory - Hematology and Cell countsOrdered By: Warren Sampson on 04-16-2023 Erythrocyte distribution width (RBC) [Entitic vol] 66.9 fL 35.1-43.9 [facility] Erythrocyte distribution width (RBC) [Ratio] 17.0 % 11.6-14.6 [facility] Immature granulocytes/100 WBC (Bld) 0.200 % 0.0-0.9 [facility] Comment on above: IG% - Immature Granu locytes (promyelocytes, myelocytes and metamyelocytes) > 1% indicates that a LEFT SHIFT is Present. MCH (RBC) [Entitic mass] 33.1 pg 27.0-32.0 [facility] Nucleated RBC/100 WBC (Bld) [Ratio] 0 % 0-5 [facility] MCHC Auto (RBC) [Mass/Vol]Or dered By: Warren Sampson on 04-16-2023 MCHC (RBC) [Mass/Vol] 31.1 g/dL 32-36 [facility] No Panel InformationOrdered By: Warren Sampson on 04-16-2023 Estimated GFR (MDRD) Amer 28 mL/min >60 [facility] Comment on above: GFR Calc Estimated GFR (MDRD) Non-Af Amer 23 mL/min >60 [facility] Comment on above: Non- GFR Calc 33.1 pg 27.0-32.0 [facility] 17.0 % 11.6-14.6 [facility] 66.9 fl 35.1-43.9 [facility] 0.200 % 0.0-0.9 [facility] 0 % 0-5 [facility] 23 mL/min >60 [facility] 28 mL/min >60 [facility] 20.9 RATIO 10-20 [facility] 22.0 mmol/L 21.0-32.0 [facility] Platelets bldOrdered By: Miguel Sampson on 04-16-2023 Platelets (Bld) [#/Vol] 130 10*3/uL 150-450 [facility] Serum or plasma C reactive p rotein measurement (mass/volume)Ordered By: Warren Sampson on 04-16-2023 CRP [Mass/Vol] 18.50 mg/L 0.0-3.0 [facility] Comment on above: C-Reactive Protein ( CRP) provides useful information for thediagnosis, therapy and monitoring of inflammatory processesand associated diseases. For the evaluation of Relative Riskfor Cardiovascular Disease, a High Sensitivity CRP (HSCRP)should be ordered. Serum or plasma calcium elvia urement (mass/volume)Ordered By: Warren Sampson on 04-16-2023 Calcium [Mass/Vol] 9.2 mg/dL 8.5-10.1 [facility] Serum or plasma creatinine m easurement (mass/volume)Ordered By: Warren Sampson on 04-16-2023 Creatinine [Mass/Vol] 2.82 mg/dL 0.70-1.30 [facility] Comment on above: The validity of the calculated GFR & GFRAA in patients over 70 years has not been determined. Clinical correlation is essential. Serum or plasma urea nitroge n measurement (mass/volume)Ordered By: Warren Sampson on 04-16-2023 Urea nitrogen [Mass/Vol] 59 mg/dL - [facility] Thin prep Papanicolaou smear with manual screeningOrdered By: Warren Sampson on 04-16-2023 Thin prep Papanicolaou smear with manual screening 6 5-15 [facility] Whole blood hemoglobin A1c/t otal hemoglobin ratio (mass fraction)Ordered By: Warren Sampson on 04-16-2023 HbA1c (Bld) [Mass fraction] 5.0 % 3.8-5.6 [facility] Comment on above: Normal < 5.7 % Predi abetic 5.7 - 6.4 % Diabetic >or= 6.5 % Please note range changes. Absolute lymphocyte countOrd ered By: Paco Norman on 03-26-2023 Lymphocytes Auto (Unsp spec) [#/Vol] 0.89 10*3/uL 0.83-4.51 [facility] Basophil percentageOrdered B y: Paco Norman on 03-26-2023 Basophil percentage 100 mg/dL 74-106 [facility] Basophil percentage 5.6 g/dL 6.4-8.2 [facility] Basophil percentage 0.50 mg/dL 0.20-1.00 [facility] Basophil percentage 142 mmol/L 136-145 [facility] Basophil percentage 4.3 mmol/L 3.5-5.1 [facility] Basophil percentage 112 mmol/L 98-107 [facility] Basophil percentage 152 U/L 87-241 [facility] Basophils (Bld) [#/Vol] 6.4 10*3/uL 4.4-11.0 [facility] Basophils (Bld) [#/Vol] 4.7 10*3/uL 2.0-7.7 [facility] Basophils/100 WBC (Bld) 73.6 % 47-70 [facility] Basophils/100 WBC (Bld) 3.4 % 0-5 [facility] Basophils/100 WBC (Bld) 0.5 % 0-1 [facility] Bilirubin [Mass/Vol] 0.50 mg/dL 0.20-1.00 [facility] Comment on above: For patients on eltr ombopag therapy, use of Dimension [place] TBIL is not recommended. Chloride [Moles/Vol] 112 mmol/L 98-107 [facility] Eosinophils/100 WBC (Bld) 3.4 % 0-5 [facility] Glucose [Mass/Vol] 100 mg/dL 74-106 [facility] Comment on above: Fasting Glucose resu lt from 100 to 125 mg/dL suggests IMPAIRED HOMEOSTASIS per A.D.A. criteria. LDH [Catalytic activity/Vol] 152 U/L 87-241 [facility] Neutrophils (Bld) [#/Vol] 4.7 10*3/uL 2.0-7.7 [facility] Neutrophils/100 WBC (Bld) 73.6 % 47-70 [facility] Potassium [Moles/Vol] 4.3 mmol/L 3.5-5.1 [facility] Protein [Mass/Vol] 5.6 g/dL 6.4-8.2 [facility] Sodium [Moles/Vol] 142 mmol/L 136-145 [facility] WBC (Bld) [#/Vol] 6.4 10*3/uL 4.4-11.0 [facility] Blood erythrocytes count (nu mber/volume)Ordered By: Paco Norman on 03-26-2023 RBC (Bld) [#/Vol] 2.60 10*6/uL 4.6-6.2 [facility] Blood hemoglobin measurement (mass/volume)Ordered By: Paco Norman on 03-26-2023 Hemoglobin (Bld) [Mass/Vol] 8.7 g/dL 13.0-16.5 [facility] Blood lymphocytes/100 leukoc ytesOrdered By: Paco Norman on 03-26-2023 Lymphocytes/100 WBC (Bld) 13.9 % 19-41 [facility] Blood monocytes/100 leukocyt esOrdered By: Paco Norman on 03-26-2023 Monocytes/100 WBC (Bld) 8.4 % 0-10 [facility] Blood platelet mean volumeOr dered By: Paco Norman on 03-26-2023 Platelet mean volume (Bld) [Entitic vol] 10.3 fL 6.2-12.0 [facility] Determination of erythrocyte mean corpuscular volume (MCV)Ordered By: Paco Norman on 03-26-2023 MCV (RBC) [Entitic vol] 105.4 fL 80-94 [facility] Direct bilirubinOrdered By: Paco Norman on 03-26-2023 Bilirubin.direct [Mass/Vol] 0.18 mg/dL 0.00-0.30 [facility] Hematocrit Auto (Bld) [Volum e fraction]Ordered By: Riazlive oakdel Norman on 03-26-2023 Hematocrit (Bld) [Volume fraction] 27.4 % 40-54 [facility] Iron measurement (mass/mass) Ordered By: monse Norman on 03-26-2023 Iron (Unsp spec) [Mass/Mass] 15 ug/dL 65-175 [facility] Laboratory - Chemistry and C hemistry - challengeOrdered By: Riazlive oakdel Norman on 03-26-2023 ALP [Catalytic activity/Vol] 89 U/L 45-117 [facility] ALT [Catalytic activity/Vol] 14 U/L 16-61 [facility] CO2 [Moles/Vol] 27.0 mmol/L 21.0-32.0 [facility] Cobalamin (Vitamin B12) [Mass/Vol] 501 pg/mL 211-911 [facility] Globulin (S) [Mass/Vol] 2.7 g/dL 2.2-4.2 [facility] Urea nitrogen/Creatinine [Mass ratio] 25.2 mg/mg 10-20 [facility] Laboratory - Hematology and Cell countsOrdered By: Riazlive oakdel Norman on 03-26-2023 Erythrocyte distribution width (RBC) [Entitic vol] 64.1 fL 35.1-43.9 [facility] Erythrocyte distribution width (RBC) [Ratio] 16.4 % 11.6-14.6 [facility] Immature granulocytes/100 WBC (Bld) 0.200 % 0.0-0.9 [facility] Comment on above: IG% - Immature Granu locytes (promyelocytes, myelocytes and metamyelocytes) > 1% indicates that a LEFT SHIFT is Present. MCH (RBC) [Entitic mass] 33.5 pg 27.0-32.0 [facility] Nucleated RBC/100 WBC (Bld) [Ratio] 0 % 0-5 [facility] MCHC Auto (RBC) [Mass/Vol]Or dered By: Paco Noramn on 03-26-2023 MCHC (RBC) [Mass/Vol] 31.8 g/dL 32-36 [facility] No Panel InformationOrdered By: Paco Norman on 03-26-2023 Estimated GFR (MDRD) Amer 37 mL/min >60 [facility] Comment on above: GFR Calc Estimated GFR (MDRD) Non-Af Amer 30 mL/min >60 [facility] Comment on above: Non- GFR Calc Total Iron Binding Capacity 198 ug/dL 250-450 [facility] 33.5 pg 27.0-32.0 [facility] 16.4 % 11.6-14.6 [facility] 64.1 fl 35.1-43.9 [facility] 0.200 % 0.0-0.9 [facility] 0 % 0-5 [facility] 30 mL/min >60 [facility] 37 mL/min >60 [facility] 25.2 RATIO 10-20 [facility] 2.7 g/dL 2.2-4.2 [facility] 89 U/L 45-117 [facility] 14 U/L 16-61 [facility] 27.0 mmol/L 21.0-32.0 [facility] 501 pg/mL 211-911 [facility] 198 ug/dL 250-450 [facility] Platelets bldOrdered By: Rajendra Norman on 03-26-2023 Platelets (Bld) [#/Vol] 106 10*3/uL 150-450 [facility] Serum or plasma albumin elvia urement (mass/volume)Ordered By: Paco Norman on 03-26-2023 Albumin [Mass/Vol] 2.9 g/dL 3.2-5.0 [facility] Serum or plasma albumin/glob ulin mass ratioOrdered By: Paco Norman on 03-26-2023 Albumin/Globulin [Mass ratio] 1.1 {ratio} 0.9-2.4 [facility] Serum or plasma calcium elvia urement (mass/volume)Ordered By: Paco Norman on 03-26-2023 Calcium [Mass/Vol] 8.6 mg/dL 8.5-10.1 [facility] Serum or plasma creatinine m easurement (mass/volume)Ordered By: Paco Norman on 03-26-2023 Creatinine [Mass/Vol] 2.22 mg/dL 0.70-1.30 [facility] Comment on above: The validity of the calculated GFR & GFRAA in patients over 70 years has not been determined. Clinical correlation is essential. Serum or plasma erythropoiet in (EPO) measurement (units/volume)Ordered By: Paco Norman on 03-26-2023 Erythropoietin (EPO) Qn 17.3 mIU/mL 2.6-18.5 [facility] Comment on above: [place] [facility] el DxI 800 Immunoassay SystemValues obtained with different assay methods or kits cannotbe used interchangeably. Results cannot be interpreted asabsolute evidence of the presence or absence of malignantdisease.Performed at: [facility] [id number] Director: Amaury Raya PhD, Phone: [phone] Serum or plasma ferritin pedro luis surement (mass/volume)Ordered By: Paco Norman on 03-26-2023 Ferritin [Mass/Vol] 602 ng/mL 26-388 [facility] Serum or plasma folate measu rement (mass/volume)Ordered By: Paco Norman on 03-26-2023 Folate [Mass/Vol] 28.90 ng/mL 3.1-55.4 [facility] Serum or plasma iron saturat ion measurement (mass fraction)Ordered By: Paco Norman on 03-26-2023 Iron saturation [Mass fraction] 7.6 % 15.0-55.0 [facility] Serum or plasma urea nitroge n measurement (mass/volume)Ordered By: Paco Norman on 03-26-2023 Urea nitrogen [Mass/Vol] 56 mg/dL 7-18 [facility] Thin prep Papanicolaou smear with manual screeningOrdered By: Paco Norman on 03-26-2023 Thin prep Papanicolaou smear with manual screening 7 U/L 15-37 [facility] Thin prep Papanicolaou smear with manual screening 3 5-15 [facility] Basophil percentageOrdered B y: Paco Norman on 03-25-2023 Basophil percentage 5.4 g/dL 6.4-8.2 [facility] Basophil percentage 0.50 mg/dL 0.20-1.00 [facility] Basophil percentage 83 mg/dL <200 [facility] Basophil percentage 47 mg/dL <199 [facility] Bilirubin [Mass/Vol] 0.50 mg/dL 0.20-1.00 [facility] Comment on above: For patients on eltr ombopag therapy, use of Dimension [place] TBIL is not recommended. Cholesterol [Mass/Vol] 83 mg/dL <200 [facility] Comment on above: <200 mg/dL Desirable 200-240 mg/dL Borderline >240 mg/dL High Risk Protein [Mass/Vol] 5.4 g/dL 6.4-8.2 [facility] Triglyceride [Mass/Vol] 47 mg/dL <199 [facility] Comment on above: The drugs N-Acetylcy steine and Metamizole may falsely depress this assay.Serum Triglycerides Reference Interval Normal <150 mg/dL Borderline high 150 - 199 mg/dL High 200 - 499 mg/dL Very High > or = 500 mg/dL Direct bilirubinOrdered By: Paco Norman on 03-25-2023 Bilirubin.direct [Mass/Vol] 0.14 mg/dL 0.00-0.30 [facility] Laboratory - Chemistry and C hemistry - challengeOrdered By: Paco Norman on 03-25-2023 ALP [Catalytic activity/Vol] 90 U/L [facility] ALT [Catalytic activity/Vol] 14 U/L [facility] Globulin (S) [Mass/Vol] 2.5 g/dL 2.2-4.2 [facility] No Panel InformationOrdered By: Paco Norman on 03-25-2023 Thyroid Stimulating Hormone (TSH) 0.35 uIU/mL 0.358-3.74 [facility] 2.5 g/dL 2.2-4.2 [facility] 90 U/L [facility] 14 U/L 16-61 [facility] 0.35 uIU/mL 0.358-3.74 [facility] Serum or plasma albumin elvia urement (mass/volume)Ordered By: Paco Norman on 03-25-2023 Albumin [Mass/Vol] 2.9 g/dL 3.2-5.0 [facility] Serum or plasma cholesterol in HDL measurement (mass/volume)Ordered By: Paco Norman on 03-25-2023 Cholesterol in HDL [Mass/Vol] 52 mg/dL >40 [facility] Comment on above: The drugs N-Acetylcy steine and Metamizole may falsely depress this assay. Reference Range HDL <40 mg/dL Low HDL Cholesterol HDL >or= 60 mg/dL High HDL Cholesterol Serum or plasma cholesterol in VLDL measurement (mass/volume)Ordered By: Paco Norman on 03-25-2023 Cholesterol in VLDL [Mass/Vol] 9 mg/dL 5-40 [facility] Serum or plasma low density lipoprotein (LDL) cholesterol measurement (mass/volume)Ordered By: Paco Norman on 03-25-2023 Cholesterol in LDL [Mass/Vol] 22 mg/dL 0-130 [facility] Thin prep Papanicolaou smear with manual screeningOrdered By: Paco Norman on 03-25-2023 Thin prep Papanicolaou smear with manual screening 9 U/L 15-37 [facility] Absolute lymphocyte countOrd ered By: Paco Norman on 03-19-2023 Lymphocytes Auto (Unsp spec) [#/Vol] 0.84 10*3/uL 0.83-4.51 [facility] Basophil percentageOrdered B y: Paco Norman on 03-19-2023 Basophil percentage 98 mg/dL 74-106 [facility] Basophil percentage 140 mmol/L 136-145 [facility] Basophil percentage 4.0 mmol/L 3.5-5.1 [facility] Basophil percentage 109 mmol/L 98-107 [facility] Basophils (Bld) [#/Vol] 3.8 10*3/uL 4.4-11.0 [facility] Basophils (Bld) [#/Vol] 2.2 10*3/uL 2.0-7.7 [facility] Basophils/100 WBC (Bld) 56.9 % 47-70 [facility] Basophils/100 WBC (Bld) 8.6 % 0-5 [facility] Basophils/100 WBC (Bld) 0.8 % 0-1 [facility] Chloride [Moles/Vol] 109 mmol/L 98-107 [facility] Eosinophils/100 WBC (Bld) 8.6 % 0-5 [facility] Glucose [Mass/Vol] 98 mg/dL 74-106 [facility] Neutrophils (Bld) [#/Vol] 2.2 10*3/uL 2.0-7.7 [facility] Neutrophils/100 WBC (Bld) 56.9 % 47-70 [facility] Potassium [Moles/Vol] 4.0 mmol/L 3.5-5.1 [facility] Sodium [Moles/Vol] 140 mmol/L 136-145 [facility] WBC (Bld) [#/Vol] 3.8 10*3/uL 4.4-11.0 [facility] Blood erythrocytes count (nu mber/volume)Ordered By: Pcao Norman on 03-19-2023 RBC (Bld) [#/Vol] 2.78 10*6/uL 4.6-6.2 [facility] Blood hemoglobin measurement (mass/volume)Ordered By: Paco Norman on 03-19-2023 Hemoglobin (Bld) [Mass/Vol] 9.0 g/dL 13.0-16.5 [facility] Blood lymphocytes/100 leukoc ytesOrdered By: aPco Norman on 03-19-2023 Lymphocytes/100 WBC (Bld) 21.9 % 19-41 [facility] Blood monocytes/100 leukocyt esOrdered By: Paco Norman on 03-19-2023 Monocytes/100 WBC (Bld) 11.5 % 0-[address] [facility] Blood platelet mean volumeOr dered By: Paco Norman on 03-19-2023 Platelet mean volume (Bld) [Entitic vol] 10.0 fL 6.2-12.0 [facility] Determination of erythrocyte mean corpuscular volume (MCV)Ordered By: Paco Norman on 03-19-2023 MCV (RBC) [Entitic vol] 106.1 fL 80-94 [facility] Hematocrit Auto (Bld) [Volum e fraction]Ordered By: Paco Norman on 03-19-2023 Hematocrit (Bld) [Volume fraction] 29.5 % 40-54 [facility] Laboratory - Chemistry and C hemistry - challengeOrdered By: pillolive oakdel Norman on 03-19-2023 CO2 [Moles/Vol] 29.0 mmol/L 21.0-32.0 [facility] Urea nitrogen/Creatinine [Mass ratio] 24.3 mg/mg - [facility] Laboratory - Hematology and Cell countsOrdered By: Paco Norman on 03-19-2023 Erythrocyte distribution width (RBC) [Entitic vol] 62.4 fL 35.1-43.9 [facility] Erythrocyte distribution width (RBC) [Ratio] 15.9 % 11.6-14.6 [facility] Immature granulocytes/100 WBC (Bld) 0.300 % 0.0-0.9 [facility] Comment on above: IG% - Immature Granu locytes (promyelocytes, myelocytes and metamyelocytes) > 1% indicates that a LEFT SHIFT is Present. MCH (RBC) [Entitic mass] 32.4 pg 27.0-32.0 [facility] Nucleated RBC/100 WBC (Bld) [Ratio] 0 % 0-5 [facility] MCHC Auto (RBC) [Mass/Vol]Or dered By: Paco Norman on 03-19-2023 MCHC (RBC) [Mass/Vol] 30.5 g/dL 32-36 [facility] No Panel InformationOrdered By: Paco Norman on 03-19-2023 Estimated GFR (MDRD) Amer 35 mL/min >60 [facility] Comment on above: GFR Calc Estimated GFR (MDRD) Non-Af Amer 29 mL/min >60 [facility] Comment on above: Non- GFR Calc 32.4 pg 27.0-32.0 [facility] 15.9 % 11.6-14.6 [facility] 62.4 fl 35.1-43.9 [facility] 0.300 % 0.0-0.9 [facility] 0 % 0-5 [facility] 29 mL/min >60 [facility] 35 mL/min >60 [facility] 24.3 RATIO 10-20 [facility] 29.0 mmol/L 21.0-32.0 [facility] Platelets bldOrdered By: Rajendra di Emreson on 03-19-2023 Platelets (Bld) [#/Vol] 127 10*3/uL 150-450 [facility] Serum or plasma calcium elvia urement (mass/volume)Ordered By: Paco Norman on 03-19-2023 Calcium [Mass/Vol] 9.2 mg/dL 8.5-10.1 [facility] Serum or plasma creatinine m easurement (mass/volume)Ordered By: Paco Norman on 03-19-2023 Creatinine [Mass/Vol] 2.30 mg/dL 0.70-1.30 [facility] Comment on above: The validity of the calculated GFR & GFRAA in patients over 70 years has not been determined. Clinical correlation is essential. Serum or plasma urea nitroge n measurement (mass/volume)Ordered By: Paco Norman on 03-19-2023 Urea nitrogen [Mass/Vol] 56 mg/dL 7-18 [facility] Thin prep Papanicolaou smear with manual screeningOrdered By: Paco Norman on 03-19-2023 Thin prep Papanicolaou smear with manual screening 2 5-15 [facility] Absolute lymphocyte countOrd ered By: Riaznicholasdel Norman on 03-12-2023 Lymphocytes Auto (Unsp spec) [#/Vol] 0.98 10*3/uL 0.83-4.51 [facility] Basophil percentageOrdered B y: Paco Norman on 03-12-2023 Basophil percentage 96 mg/dL 74-106 [facility] Basophil percentage 142 mmol/L 136-145 [facility] Basophil percentage 4.4 mmol/L 3.5-5.1 [facility] Basophil percentage 111 mmol/L 98-107 [facility] Basophils (Bld) [#/Vol] 4.1 10*3/uL 4.4-11.0 [facility] Basophils (Bld) [#/Vol] 2.3 10*3/uL 2.0-7.7 [facility] Basophils/100 WBC (Bld) 55.1 % 47-70 [facility] Basophils/100 WBC (Bld) 9.5 % 0-5 [facility] Basophils/100 WBC (Bld) 0.5 % 0-1 [facility] Chloride [Moles/Vol] 111 mmol/L 98-107 [facility] Eosinophils/100 WBC (Bld) 9.5 % 0-5 [facility] Glucose [Mass/Vol] 96 mg/dL 74-106 [facility] Neutrophils (Bld) [#/Vol] 2.3 10*3/uL 2.0-7.7 [facility] Neutrophils/100 WBC (Bld) 55.1 % 47-70 [facility] Potassium [Moles/Vol] 4.4 mmol/L 3.5-5.1 [facility] Sodium [Moles/Vol] 142 mmol/L 136-145 [facility] WBC (Bld) [#/Vol] 4.1 10*3/uL 4.4-11.0 [facility] Blood erythrocytes count (nu mber/volume)Ordered By: Paco Norman on 03-12-2023 RBC (Bld) [#/Vol] 2.66 10*6/uL 4.6-6.2 [facility] Blood hemoglobin measurement (mass/volume)Ordered By: Paco Norman on 03-12-2023 Hemoglobin (Bld) [Mass/Vol] 8.6 g/dL 13.0-16.5 [facility] Blood lymphocytes/100 leukoc ytesOrdered By: Paco Norman on 03-12-2023 Lymphocytes/100 WBC (Bld) 23.8 % 19-41 [facility] Blood monocytes/100 leukocyt esOrdered By: Paco Norman on 03-12-2023 Monocytes/100 WBC (Bld) 10.9 % 0-10 [facility] Blood platelet mean volumeOr dered By: Paco Norman on 03-12-2023 Platelet mean volume (Bld) [Entitic vol] 10.3 fL 6.2-12.0 [facility] Determination of erythrocyte mean corpuscular volume (MCV)Ordered By: Paco Norman on 03-12-2023 MCV (RBC) [Entitic vol] 106.4 fL 80-94 [facility] Hematocrit Auto (Bld) [Volum e fraction]Ordered By: Paco Norman on 03-12-2023 Hematocrit (Bld) [Volume fraction] 28.3 % 40-54 [facility] Laboratory - Chemistry and C hemistry - challengeOrdered By: Paco Norman on 03-12-2023 CO2 [Moles/Vol] 27.0 mmol/L 21.0-32.0 [facility] Urea nitrogen/Creatinine [Mass ratio] 25.1 mg/mg 10-20 [facility] Laboratory - Hematology and Cell countsOrdered By: Paco Norman on 03-12-2023 Erythrocyte distribution width (RBC) [Entitic vol] 63.9 fL 35.1-43.9 [facility] Erythrocyte distribution width (RBC) [Ratio] 16.1 % 11.6-14.6 [facility] Immature granulocytes/100 WBC (Bld) 0.200 % 0.0-0.9 [facility] Comment on above: IG% - Immature Granu locytes (promyelocytes, myelocytes and metamyelocytes) > 1% indicates that a LEFT SHIFT is Present. MCH (RBC) [Entitic mass] 32.3 pg 27.0-32.0 [facility] Nucleated RBC/100 WBC (Bld) [Ratio] 0 % 0-5 [facility] MCHC Auto (RBC) [Mass/Vol]Or dered By: Paco Norman on 03-12-2023 MCHC (RBC) [Mass/Vol] 30.4 g/dL 32-36 [facility] No Panel InformationOrdered By: Paco Norman on 03-12-2023 Estimated GFR (MDRD) Amer 39 mL/min >60 [facility] Comment on above: GFR Calc Estimated GFR (MDRD) Non-Af Amer 32 mL/min >60 [facility] Comment on above: Non- GFR Calc 32.3 pg 27.0-32.0 [facility] 16.1 % 11.6-14.6 [facility] 63.9 fl 35.1-43.9 [facility] 0.200 % 0.0-0.9 [facility] 0 % 0-5 [facility] 32 mL/min >60 [facility] 39 mL/min >60 [facility] 25.1 RATIO 10-20 [facility] 27.0 mmol/L 21.0-32.0 [facility] Platelets bldOrdered By: Rajendra Norman on 03-12-2023 Platelets (Bld) [#/Vol] 126 10*3/uL 150-450 [facility] Serum or plasma calcium elvia urement (mass/volume)Ordered By: Paco Norman on 03-12-2023 Calcium [Mass/Vol] 8.9 mg/dL 8.5-10.1 [facility] Serum or plasma creatinine m easurement (mass/volume)Ordered By: Paco Norman on 03-12-2023 Creatinine [Mass/Vol] 2.11 mg/dL 0.70-1.30 [facility] Comment on above: The validity of the calculated GFR & GFRAA in patients over 70 years has not been determined. Clinical correlation is essential. Serum or plasma urea nitroge n measurement (mass/volume)Ordered By: Paco Norman on 03-12-2023 Urea nitrogen [Mass/Vol] 53 mg/dL 7-18 [facility] Thin prep Papanicolaou smear with manual screeningOrdered By: Paco Norman on 03-12-2023 Thin prep Papanicolaou smear with manual screening 4 5-15 [facility] Absolute lymphocyte countOrd ered By: Paco Norman on 03-05-2023 Lymphocytes Auto (Unsp spec) [#/Vol] 0.99 10*3/uL 0.83-4.51 [facility] Basophil percentageOrdered B y: Paco Norman on 03-05-2023 Basophil percentage 92 mg/dL 74-106 [facility] Basophil percentage 144 mmol/L 136-145 [facility] Basophil percentage 4.3 mmol/L 3.5-5.1 [facility] Basophil percentage 114 mmol/L 98-107 [facility] Basophils (Bld) [#/Vol] 4.2 10*3/uL 4.4-11.0 [facility] Basophils (Bld) [#/Vol] 2.4 10*3/uL 2.0-7.7 [facility] Basophils/100 WBC (Bld) 57.7 % 47-70 [facility] Basophils/100 WBC (Bld) 8.1 % 0-5 [facility] Basophils/100 WBC (Bld) 0.7 % 0-1 [facility] Chloride [Moles/Vol] 114 mmol/L 98-107 [facility] Eosinophils/100 WBC (Bld) 8.1 % 0-5 [facility] Glucose [Mass/Vol] 92 mg/dL 74-106 [facility] Neutrophils (Bld) [#/Vol] 2.4 10*3/uL 2.0-7.7 [facility] Neutrophils/100 WBC (Bld) 57.7 % 47-70 [facility] Potassium [Moles/Vol] 4.3 mmol/L 3.5-5.1 [facility] Sodium [Moles/Vol] 144 mmol/L 136-145 [facility] WBC (Bld) [#/Vol] 4.2 10*3/uL 4.4-11.0 [facility] Blood erythrocytes count (nu mber/volume)Ordered By: Paco Norman on 03-05-2023 RBC (Bld) [#/Vol] 2.70 10*6/uL 4.6-6.2 [facility] Blood hemoglobin measurement (mass/volume)Ordered By: Paco Norman on 03-05-2023 Hemoglobin (Bld) [Mass/Vol] 8.8 g/dL 13.0-16.5 [facility] Blood lymphocytes/100 leukoc ytesOrdered By: Paco Norman on 03-05-2023 Lymphocytes/100 WBC (Bld) 23.7 % 19-41 [facility] Blood monocytes/100 leukocyt esOrdered By: Paco Norman on 03-05-2023 Monocytes/100 WBC (Bld) 9.6 % 0-10 [facility] Blood platelet mean volumeOr dered By: Paco Norman on 03-05-2023 Platelet mean volume (Bld) [Entitic vol] 9.8 fL 6.2-12.0 [facility] Determination of erythrocyte mean corpuscular volume (MCV)Ordered By: Riazlive oakdel Norman on 03-05-2023 MCV (RBC) [Entitic vol] 105.9 fL 80-94 [facility] Hematocrit Auto (Bld) [Volum e fraction]Ordered By: Riazlive oakdel Norman on 03-05-2023 Hematocrit (Bld) [Volume fraction] 28.6 % 40-54 [facility] Laboratory - Chemistry and C hemistry - challengeOrdered By: [facility] Center[facility] Españasreedhar on 03-05-2023 CO2 [Moles/Vol] 28.0 mmol/L 21.0-32.0 [facility] Urea nitrogen/Creatinine [Mass ratio] 29.4 mg/mg 10-20 [facility] Laboratory - Hematology and Cell countsOrdered By: pillolive oakdel Norman on 03-05-2023 Erythrocyte distribution width (RBC) [Entitic vol] 62.3 fL 35.1-43.9 [facility] Erythrocyte distribution width (RBC) [Ratio] 16.0 % 11.6-14.6 [facility] Immature granulocytes/100 WBC (Bld) 0.200 % 0.0-0.9 [facility] Comment on above: IG% - Immature Granu locytes (promyelocytes, myelocytes and metamyelocytes) > 1% indicates that a LEFT SHIFT is Present. MCH (RBC) [Entitic mass] 32.6 pg 27.0-32.0 [facility] Nucleated RBC/100 WBC (Bld) [Ratio] 0 % 0-5 [facility] MCHC Auto (RBC) [Mass/Vol]Or dered By: pillolive oakdel Norman on 03-05-2023 MCHC (RBC) [Mass/Vol] 30.8 g/dL 32-36 [facility] No Panel InformationOrdered By: Paco Norman on 03-05-2023 Estimated GFR (MDRD) Amer 41 mL/min >60 [facility] Comment on above: GFR Calc Estimated GFR (MDRD) Non-Af Amer 34 mL/min >60 [facility] Comment on above: Non- GFR Calc 32.6 pg 27.0-32.0 [facility] 16.0 % 11.6-14.6 [facility] 62.3 fl 35.1-43.9 [facility] 0.200 % 0.0-0.9 [facility] 0 % 0-5 [facility] 34 mL/min >60 [facility] 41 mL/min >60 [facility] 29.4 RATIO 10-20 [facility] 28.0 mmol/L 21.0-32.0 [facility] Platelets bldOrdered By: Rajendra Norman on 03-05-2023 Platelets (Bld) [#/Vol] 131 10*3/uL 150-450 [facility] Serum or plasma calcium elvia urement (mass/volume)Ordered By: Paco Norman on 03-05-2023 Calcium [Mass/Vol] 9.0 mg/dL 8.5-10.1 [facility] Serum or plasma creatinine m easurement (mass/volume)Ordered By: Paco Norman on 03-05-2023 Creatinine [Mass/Vol] 2.01 mg/dL 0.70-1.30 [facility] Comment on above: The validity of the calculated GFR & GFRAA in patients over 70 years has not been determined. Clinical correlation is essential. Serum or plasma urea nitroge n measurement (mass/volume)Ordered By: Paco Norman on 03-05-2023 Urea nitrogen [Mass/Vol] 59 mg/dL 7-18 [facility] Thin prep Papanicolaou smear with manual screeningOrdered By: Paco Norman on 03-05-2023 Thin prep Papanicolaou smear with manual screening 2 5-15 [facility] Absolute lymphocyte countOrd ered By: Paco Norman on 02-26-2023 Lymphocytes Auto (Unsp spec) [#/Vol] 0.96 10*3/uL 0.83-4.51 [facility] Basophil percentageOrdered B y: Paco Norman on 02-26-2023 Basophil percentage 94 mg/dL 74-106 [facility] Basophil percentage 142 mmol/L 136-145 [facility] Basophil percentage 4.5 mmol/L 3.5-5.1 [facility] Basophil percentage 109 mmol/L 98-107 [facility] Basophils (Bld) [#/Vol] 4.2 10*3/uL 4.4-11.0 [facility] Basophils (Bld) [#/Vol] 2.3 10*3/uL 2.0-7.7 [facility] Basophils/100 WBC (Bld) 54.1 % 47-70 [facility] Basophils/100 WBC (Bld) 9.6 % 0-5 [facility] Basophils/100 WBC (Bld) 1.0 % 0-1 [facility] Chloride [Moles/Vol] 109 mmol/L 98-107 [facility] Eosinophils/100 WBC (Bld) 9.6 % 0-5 [facility] Glucose [Mass/Vol] 94 mg/dL 74-106 [facility] Neutrophils (Bld) [#/Vol] 2.3 10*3/uL 2.0-7.7 [facility] Neutrophils/100 WBC (Bld) 54.1 % 47-70 [facility] Potassium [Moles/Vol] 4.5 mmol/L 3.5-5.1 [facility] Sodium [Moles/Vol] 142 mmol/L 136-145 [facility] WBC (Bld) [#/Vol] 4.2 10*3/uL 4.4-11.0 [facility] Blood erythrocytes count (nu mber/volume)Ordered By: Paco Norman on 02-26-2023 RBC (Bld) [#/Vol] 2.65 10*6/uL 4.6-6.2 [facility] Blood hemoglobin measurement (mass/volume)Ordered By: Paco Norman on 02-26-2023 Hemoglobin (Bld) [Mass/Vol] 8.5 g/dL 13.0-16.5 [facility] Blood lymphocytes/100 leukoc ytesOrdered By: Paco Norman on 02-26-2023 Lymphocytes/100 WBC (Bld) 23.1 % 19-41 [facility] Blood monocytes/100 leukocyt esOrdered By: Jelenamonse Norman on 02-26-2023 Monocytes/100 WBC (Bld) 12.0 % 0-10 [facility] Blood platelet mean volumeOr dered By: Paco Norman on 02-26-2023 Platelet mean volume (Bld) [Entitic vol] 9.9 fL 6.2-12.0 [facility] Determination of erythrocyte mean corpuscular volume (MCV)Ordered By: Paco Norman on 02-26-2023 MCV (RBC) [Entitic vol] 106.0 fL 80-94 [facility] Hematocrit Auto (Bld) [Volum e fraction]Ordered By: Paco Norman on 02-26-2023 Hematocrit (Bld) [Volume fraction] 28.1 % 40-54 [facility] Laboratory - Chemistry and C hemistry - challengeOrdered By: pillolive oakdel Norman on 02-26-2023 CO2 [Moles/Vol] 28.0 mmol/L 21.0-32.0 [facility] Urea nitrogen/Creatinine [Mass ratio] 25.7 mg/mg 10-20 [facility] Laboratory - Hematology and Cell countsOrdered By: Riazlive oakdel Norman on 02-26-2023 Erythrocyte distribution width (RBC) [Entitic vol] 61.8 fL 35.1-43.9 [facility] Erythrocyte distribution width (RBC) [Ratio] 15.9 % 11.6-14.6 [facility] Immature granulocytes/100 WBC (Bld) 0.200 % 0.0-0.9 [facility] Comment on above: IG% - Immature Granu locytes (promyelocytes, myelocytes and metamyelocytes) > 1% indicates that a LEFT SHIFT is Present. MCH (RBC) [Entitic mass] 32.1 pg 27.0-32.0 [facility] Nucleated RBC/100 WBC (Bld) [Ratio] 0 % 0-5 [facility] Auto (RBC) [Mass/Vol]Or dered By: Paco Norman on 02-26-2023 MCHC (RBC) [Mass/Vol] 30.2 g/dL 32-36 [facility] No Panel InformationOrdered By: Paco Norman on 02-26-2023 Estimated GFR (MDRD) Amer 35 mL/min >60 [facility] Comment on above: GFR Calc Estimated GFR (MDRD) Non-Af Amer 29 mL/min >60 [facility] Comment on above: Non- GFR Calc 32.1 pg 27.0-32.0 [facility] 15.9 % 11.6-14.6 [facility] 61.8 fl 35.1-43.9 [facility] 0.200 % 0.0-0.9 [facility] 0 % 0-5 [facility] 29 mL/min >60 [facility] 35 mL/min >60 [facility] 25.7 RATIO 10-20 [facility] 28.0 mmol/L 21.0-32.0 [facility] Platelets bldOrdered By: Rajendra Norman on 02-26-2023 Platelets (Bld) [#/Vol] 137 10*3/uL 150-450 [facility] Serum or plasma calcium elvia urement (mass/volume)Ordered By: Paco Norman on 02-26-2023 Calcium [Mass/Vol] 9.2 mg/dL 8.5-10.1 [facility] Serum or plasma creatinine m easurement (mass/volume)Ordered By: Paco Norman on 02-26-2023 Creatinine [Mass/Vol] 2.30 mg/dL 0.70-1.30 [facility] Comment on above: The validity of the calculated GFR & GFRAA in patients over 70 years has not been determined. Clinical correlation is essential. Serum or plasma urea nitroge n measurement (mass/volume)Ordered By: Paco Norman on 02-26-2023 Urea nitrogen [Mass/Vol] 59 mg/dL 7-18 [facility] Thin prep Papanicolaou smear with manual screeningOrdered By: Paoc Norman on 02-26-2023 Thin prep Papanicolaou smear with manual screening 5 5-15 [facility] Absolute lymphocyte countOrd ered By: Paco Norman on 02-19-2023 Lymphocytes Auto (Unsp spec) [#/Vol] 0.83 10*3/uL 0.83-4.51 [facility] Basophil percentageOrdered B y: Paco Norman on 02-19-2023 Basophil percentage 92 mg/dL 74-106 [facility] Basophil percentage 139 mmol/L 136-145 [facility] Basophil percentage 4.4 mmol/L 3.5-5.1 [facility] Basophil percentage 109 mmol/L 98-107 [facility] Basophils (Bld) [#/Vol] 3.8 10*3/uL 4.4-11.0 [facility] Basophils (Bld) [#/Vol] 2.2 10*3/uL 2.0-7.7 [facility] Basophils/100 WBC (Bld) 57.1 % 47-70 [facility] Basophils/100 WBC (Bld) 8.9 % 0-5 [facility] Basophils/100 WBC (Bld) 0.8 % 0-1 [facility] Chloride [Moles/Vol] 109 mmol/L 98-107 [facility] Eosinophils/100 WBC (Bld) 8.9 % 0-5 [facility] Glucose [Mass/Vol] 92 mg/dL 74-106 [facility] Neutrophils (Bld) [#/Vol] 2.2 10*3/uL 2.0-7.7 [facility] Neutrophils/100 WBC (Bld) 57.1 % 47-70 [facility] Potassium [Moles/Vol] 4.4 mmol/L 3.5-5.1 [facility] Sodium [Moles/Vol] 139 mmol/L 136-145 [facility] WBC (Bld) [#/Vol] 3.8 10*3/uL 4.4-11.0 [facility] Blood erythrocytes count (nu mber/volume)Ordered By: Paco Norman on 02-19-2023 RBC (Bld) [#/Vol] 2.54 10*6/uL 4.6-6.2 [facility] Blood hemoglobin measurement (mass/volume)Ordered By: Paco Norman on 02-19-2023 Hemoglobin (Bld) [Mass/Vol] 8.1 g/dL 13.0-16.5 [facility] Blood lymphocytes/100 leukoc ytesOrdered By: Paco Norman on 02-19-2023 Lymphocytes/100 WBC (Bld) 21.8 % 19-41 [facility] Blood monocytes/100 leukocyt esOrdered By: Paco Norman on 02-19-2023 Monocytes/100 WBC (Bld) 11.1 % 0-10 [facility] Blood platelet mean volumeOr dered By: Paco Norman on 02-19-2023 Platelet mean volume (Bld) [Entitic vol] 9.8 fL 6.2-12.0 [facility] Determination of erythrocyte mean corpuscular volume (MCV)Ordered By: Paco Norman on 02-19-2023 MCV (RBC) [Entitic vol] 104.3 fL 80-94 [facility] Hematocrit Auto (Bld) [Volum e fraction]Ordered By: Paco Norman on 02-19-2023 Hematocrit (Bld) [Volume fraction] 26.5 % 40-54 [facility] Laboratory - Chemistry and C hemistry - challengeOrdered By: Paco Norman on 02-19-2023 CO2 [Moles/Vol] 28.0 mmol/L 21.0-32.0 [facility] Urea nitrogen/Creatinine [Mass ratio] 25.4 mg/mg 10-20 [facility] Laboratory - Hematology and Cell countsOrdered By: Paco Norman on 02-19-2023 Erythrocyte distribution width (RBC) [Entitic vol] 61.2 fL 35.1-43.9 [facility] Erythrocyte distribution width (RBC) [Ratio] 16.0 % 11.6-14.6 [facility] Immature granulocytes/100 WBC (Bld) 0.300 % 0.0-0.9 [facility] Comment on above: IG% - Immature Granu locytes (promyelocytes, myelocytes and metamyelocytes) > 1% indicates that a LEFT SHIFT is Present. MCH (RBC) [Entitic mass] 31.9 pg 27.0-32.0 [facility] Nucleated RBC/100 WBC (Bld) [Ratio] 0 % 0-5 [facility] MCHC Auto (RBC) [Mass/Vol]Or dered By: Paco Norman on 02-19-2023 MCHC (RBC) [Mass/Vol] 30.6 g/dL 32-36 [facility] No Panel InformationOrdered By: Paco Norman on 02-19-2023 Estimated GFR (MDRD) Amer 40 mL/min >60 [facility] Comment on above: GFR Calc Estimated GFR (MDRD) Non-Af Amer 33 mL/min >60 [facility] Comment on above: Non- GFR Calc 31.9 pg 27.0-32.0 [facility] 16.0 % 11.6-14.6 [facility] 61.2 fl 35.1-43.9 [facility] 0.300 % 0.0-0.9 [facility] 0 % 0-5 [facility] 33 mL/min >60 [facility] 40 mL/min >60 [facility] 25.4 RATIO 10-20 [facility] 28.0 mmol/L 21.0-32.0 [facility] Platelets bldOrdered By: Rajendra Norman on 02-19-2023 Platelets (Bld) [#/Vol] 125 10*3/uL 150-450 [facility] Serum or plasma calcium elvia urement (mass/volume)Ordered By: Paco Norman on 02-19-2023 Calcium [Mass/Vol] 8.8 mg/dL 8.5-10.1 [facility] Serum or plasma creatinine m easurement (mass/volume)Ordered By: Paco Norman on 02-19-2023 Creatinine [Mass/Vol] 2.05 mg/dL 0.70-1.30 [facility] Comment on above: The validity of the calculated GFR & GFRAA in patients over 70 years has not been determined. Clinical correlation is essential. Serum or plasma urea nitroge n measurement (mass/volume)Ordered By: Paco Norman on 02-19-2023 Urea nitrogen [Mass/Vol] 52 mg/dL 7-18 [facility] Thin prep Papanicolaou smear with manual screeningOrdered By: Paco Norman on 02-19-2023 Thin prep Papanicolaou smear with manual screening 2 5-15 [facility] Absolute lymphocyte countOrd ered By: Paco Norman on 02-12-2023 Lymphocytes Auto (Unsp spec) [#/Vol] 0.87 10*3/uL 0.83-4.51 [facility] Basophil percentageOrdered B y: Paco Norman on 02-12-2023 Basophil percentage 93 mg/dL 74-106 [facility] Basophil percentage 141 mmol/L 136-145 [facility] Basophil percentage 4.4 mmol/L 3.5-5.1 [facility] Basophil percentage 109 mmol/L 98-107 [facility] Basophils (Bld) [#/Vol] 4.1 10*3/uL 4.4-11.0 [facility] Basophils (Bld) [#/Vol] 2.4 10*3/uL 2.0-7.7 [facility] Basophils/100 WBC (Bld) 59.4 % 47-70 [facility] Basophils/100 WBC (Bld) 8.1 % 0-5 [facility] Basophils/100 WBC (Bld) 0.7 % 0-1 [facility] Chloride [Moles/Vol] 109 mmol/L 98-107 [facility] Eosinophils/100 WBC (Bld) 8.1 % 0-5 [facility] Glucose [Mass/Vol] 93 mg/dL 74-106 [facility] Neutrophils (Bld) [#/Vol] 2.4 10*3/uL 2.0-7.7 [facility] Neutrophils/100 WBC (Bld) 59.4 % 47-70 [facility] Potassium [Moles/Vol] 4.4 mmol/L 3.5-5.1 [facility] Sodium [Moles/Vol] 141 mmol/L 136-145 [facility] WBC (Bld) [#/Vol] 4.1 10*3/uL 4.4-11.0 [facility] Blood erythrocytes count (nu mber/volume)Ordered By: Paco Norman on 02-12-2023 RBC (Bld) [#/Vol] 2.53 10*6/uL 4.6-6.2 [facility] Blood hemoglobin measurement (mass/volume)Ordered By: Paco Norman on 02-12-2023 Hemoglobin (Bld) [Mass/Vol] 8.1 g/dL 13.0-16.5 [facility] Blood lymphocytes/100 leukoc ytesOrdered By: pillolive oakdel Norman on 02-12-2023 Lymphocytes/100 WBC (Bld) 21.3 % 19-41 [facility] Blood monocytes/100 leukocyt esOrdered By: Paco Norman on 02-12-2023 Monocytes/100 WBC (Bld) 10.3 % 0-10 [facility] Blood platelet mean volumeOr dered By: Paco Norman on 02-12-2023 Platelet mean volume (Bld) [Entitic vol] 9.5 fL 6.2-12.0 [facility] Determination of erythrocyte mean corpuscular volume (MCV)Ordered By: Paco Norman on 02-12-2023 MCV (RBC) [Entitic vol] 104.7 fL 80-94 [facility] Hematocrit Auto (Bld) [Volum e fraction]Ordered By: Paco Norman on 02-12-2023 Hematocrit (Bld) [Volume fraction] 26.5 % 40-54 [facility] Laboratory - Chemistry and C hemistry - challengeOrdered By: Paco Norman on 02-12-2023 CO2 [Moles/Vol] 29.0 mmol/L 21.0-32.0 [facility] Urea nitrogen/Creatinine [Mass ratio] 27.3 mg/mg 10-20 [facility] Laboratory - Hematology and Cell countsOrdered By: Paco Norman on 02-12-2023 Erythrocyte distribution width (RBC) [Entitic vol] 60.2 fL 35.1-43.9 [facility] Erythrocyte distribution width (RBC) [Ratio] 15.6 % 11.6-14.6 [facility] Immature granulocytes/100 WBC (Bld) 0.200 % 0.0-0.9 [facility] Comment on above: IG% - Immature Granu locytes (promyelocytes, myelocytes and metamyelocytes) > 1% indicates that a LEFT SHIFT is Present. MCH (RBC) [Entitic mass] 32.0 pg 27.0-32.0 [facility] Nucleated RBC/100 WBC (Bld) [Ratio] 0 % 0-5 [facility] MCHC Auto (RBC) [Mass/Vol]Or dered By: Paco Norman on 02-12-2023 MCHC (RBC) [Mass/Vol] 30.6 g/dL 32-36 [facility] No Panel InformationOrdered By: Paco Norman on 02-12-2023 Estimated GFR (MDRD) Amer 38 mL/min >60 [facility] Comment on above: GFR Calc Estimated GFR (MDRD) Non-Af Amer 31 mL/min >60 [facility] Comment on above: Non- GFR Calc 32.0 pg 27.0-32.0 [facility] 15.6 % 11.6-14.6 [facility] 60.2 fl 35.1-43.9 [facility] 0.200 % 0.0-0.9 [facility] 0 % 0-5 [facility] 31 mL/min >60 [facility] 38 mL/min >60 [facility] 27.3 RATIO 10-20 [facility] 29.0 mmol/L 21.0-32.0 [facility] Platelets bldOrdered By: Rajendra Norman on 02-12-2023 Platelets (Bld) [#/Vol] 118 10*3/uL 150-450 [facility] Serum or plasma calcium elvia urement (mass/volume)Ordered By: Paco Norman on 02-12-2023 Calcium [Mass/Vol] 8.9 mg/dL 8.5-10.1 [facility] Serum or plasma creatinine m easurement (mass/volume)Ordered By: Paco Norman on 02-12-2023 Creatinine [Mass/Vol] 2.16 mg/dL 0.70-1.30 [facility] Comment on above: The validity of the calculated GFR & GFRAA in patients over 70 years has not been determined. Clinical correlation is essential. Serum or plasma urea nitroge n measurement (mass/volume)Ordered By: Paco Norman on 02-12-2023 Urea nitrogen [Mass/Vol] 59 mg/dL 7-18 [facility] Thin prep Papanicolaou smear with manual screeningOrdered By: Paco Norman on 02-12-2023 Thin prep Papanicolaou smear with manual screening 3 5-15 [facility] Absolute lymphocyte countOrd ered By: Paco Norman on 02-05-2023 Lymphocytes Auto (Unsp spec) [#/Vol] 0.79 10*3/uL 0.83-4.51 [facility] Basophil percentageOrdered B y: Paco Norman on 02-05-2023 Basophil percentage 102 mg/dL 74-106 [facility] Basophil percentage 141 mmol/L 136-145 [facility] Basophil percentage 4.6 mmol/L 3.5-5.1 [facility] Basophil percentage 108 mmol/L 98-107 [facility] Basophils (Bld) [#/Vol] 5.0 10*3/uL 4.4-11.0 [facility] Basophils (Bld) [#/Vol] 3.4 10*3/uL 2.0-7.7 [facility] Basophils/100 WBC (Bld) 68.4 % 47-70 [facility] Basophils/100 WBC (Bld) 5.2 % 0-5 [facility] Basophils/100 WBC (Bld) 0.4 % 0-1 [facility] Blood erythrocytes count (nu mber/volume)Ordered By: Paco Norman on 02-05-2023 RBC (Bld) [#/Vol] 2.65 10*6/uL 4.6-6.2 [facility] Blood hemoglobin measurement (mass/volume)Ordered By: Paco Norman on 02-05-2023 Hemoglobin (Bld) [Mass/Vol] 8.5 g/dL 13.0-16.5 [facility] Blood lymphocytes/100 leukoc ytesOrdered By: Paco Norman on 02-05-2023 Lymphocytes/100 WBC (Bld) 15.8 % 19-41 [facility] Blood monocytes/100 leukocyt esOrdered By: Paco Norman on 02-05-2023 Monocytes/100 WBC (Bld) 9.8 % 0-10 [facility] Blood platelet mean volumeOr dered By: Paco Norman on 02-05-2023 Platelet mean volume (Bld) [Entitic vol] 9.0 fL 6.2-12.0 [facility] Determination of erythrocyte mean corpuscular volume (MCV)Ordered By: Paco Norman on 02-05-2023 MCV (RBC) [Entitic vol] 103.0 fL 80-94 [facility] Hematocrit Auto (Bld) [Volum e fraction]Ordered By: Paco Norman on 02-05-2023 Hematocrit (Bld) [Volume fraction] 27.3 % 40-54 [facility] MCHC Auto (RBC) [Mass/Vol]Or dered By: Paco Norman on 02-05-2023 MCHC (RBC) [Mass/Vol] 31.1 g/dL 32-36 [facility] No Panel InformationOrdered By: Paco Norman on 02-05-2023 32.1 pg 27.0-32.0 [facility] 15.2 % 11.6-14.6 [facility] 57.1 fl 35.1-43.9 [facility] 0.400 % 0.0-0.9 [facility] 0 % 0-5 [facility] 29 mL/min >60 [facility] 35 mL/min >60 [facility] 28.4 RATIO 10-20 [facility] 29.0 mmol/L 21.0-32.0 [facility] Platelets bldOrdered By: Rajendra Norman on 02-05-2023 Platelets (Bld) [#/Vol] 139 10*3/uL 150-450 [facility] Serum or plasma calcium elvia urement (mass/volume)Ordered By: Paco Norman on 02-05-2023 Calcium [Mass/Vol] 9.1 mg/dL 8.5-10.1 [facility] Serum or plasma creatinine m easurement (mass/volume)Ordered By: Paco Norman on 02-05-2023 Creatinine [Mass/Vol] 2.32 mg/dL 0.70-1.30 [facility] Serum or plasma urea nitroge n measurement (mass/volume)Ordered By: Paco Norman on 02-05-2023 Urea nitrogen [Mass/Vol] 66 mg/dL 7-18 [facility] Thin prep Papanicolaou smear with manual screeningOrdered By: Paco Norman on 02-05-2023 Thin prep Papanicolaou smear with manual screening 4 5-15 [facility] Bacteria identified Cx Nom ( Wound)Ordered By: Paco Norman on 01-31-2023 Routine wound culture Klebsiella pneumon iae sp pneum [facility] Routine wound culture Corynebacterium striatum [facility] Gram stain for investigation of transfusion reactionOrdered By: Paco Norman on 01-31-2023 Microscopic observation Gram stain Nom (Unsp spec) [facility] Bacteria identified Cx Nom ( Wound)Ordered By: Paco Norman on 01-30-2023 Routine wound culture Klebsiella pneumon iae sp pneum [facility] Routine wound culture Corynebacterium striatum [facility] Gram stain for investigation of transfusion reactionOrdered By: Paco Norman on 01-30-2023 Microscopic observation Gram stain Nom (Unsp spec) [facility] Absolute lymphocyte countOrd ered By: Paco Norman on 01-29-2023 Lymphocytes Auto (Unsp spec) [#/Vol] 1.01 10*3/uL 0.83-4.51 [facility] Basophil percentageOrdered B y: Paco Norman on 01-29-2023 Basophil percentage 94 mg/dL 74-106 [facility] Basophil percentage 140 mmol/L 136-145 [facility] Basophil percentage 4.4 mmol/L 3.5-5.1 [facility] Basophil percentage 110 mmol/L 98-107 [facility] Basophils (Bld) [#/Vol] 5.1 10*3/uL 4.4-11.0 [facility] Basophils (Bld) [#/Vol] 3.3 10*3/uL 2.0-7.7 [facility] Basophils/100 WBC (Bld) 64.9 % 47-70 [facility] Basophils/100 WBC (Bld) 5.5 % 0-5 [facility] Basophils/100 WBC (Bld) 0.6 % 0-1 [facility] Blood erythrocytes count (nu mber/volume)Ordered By: Paco Norman on 01-29-2023 RBC (Bld) [#/Vol] 2.61 10*6/uL 4.6-6.2 [facility] Blood hemoglobin measurement (mass/volume)Ordered By: Paco Norman on 01-29-2023 Hemoglobin (Bld) [Mass/Vol] 8.6 g/dL 13.0-16.5 [facility] Blood lymphocytes/100 leukoc ytesOrdered By: Paco Norman on 01-29-2023 Lymphocytes/100 WBC (Bld) 19.8 % 19-41 [facility] Blood monocytes/100 leukocyt esOrdered By: Paco Norman on 01-29-2023 Monocytes/100 WBC (Bld) 8.8 % 0-10 [facility] Blood platelet mean volumeOr dered By: Paco Norman on 01-29-2023 Platelet mean volume (Bld) [Entitic vol] 9.5 fL 6.2-12.0 [facility] Determination of erythrocyte mean corpuscular volume (MCV)Ordered By: Paco Norman on 01-29-2023 MCV (RBC) [Entitic vol] 102.7 fL 80-94 [facility] Hematocrit Auto (Bld) [Volum e fraction]Ordered By: Paco Norman on 01-29-2023 Hematocrit (Bld) [Volume fraction] 26.8 % 40-54 [facility] MCHC Auto (RBC) [Mass/Vol]Or dered By: Paco Norman on 01-29-2023 MCHC (RBC) [Mass/Vol] 32.1 g/dL 32-36 [facility] No Panel InformationOrdered By: Paco Norman on 01-29-2023 33.0 pg 27.0-32.0 [facility] 14.6 % 11.6-14.6 [facility] 55.0 fl 35.1-43.9 [facility] 0.400 % 0.0-0.9 [facility] 0 % 0-5 [facility] 33 mL/min >60 [facility] 40 mL/min >60 [facility] 26.6 RATIO 10-20 [facility] 27.0 mmol/L 21.0-32.0 [facility] Platelets bldOrdered By: Rajendra Norman on 01-29-2023 Platelets (Bld) [#/Vol] 156 10*3/uL 150-450 [facility] Serum or plasma calcium elvia urement (mass/volume)Ordered By: Paco Norman on 01-29-2023 Calcium [Mass/Vol] 9.0 mg/dL 8.5-10.1 [facility] Serum or plasma creatinine m easurement (mass/volume)Ordered By: Paco Norman on 01-29-2023 Creatinine [Mass/Vol] 2.07 mg/dL 0.70-1.30 [facility] Serum or plasma urea nitroge n measurement (mass/volume)Ordered By: Paco Norman on 01-29-2023 Urea nitrogen [Mass/Vol] 55 mg/dL 7-18 [facility] Thin prep Papanicolaou smear with manual screeningOrdered By: Paco Norman on 01-29-2023 Thin prep Papanicolaou smear with manual screening 3 5-15 [facility] CNPNon 01-23-2023 CNPN Telephone (AGPOB1) AMAURY BLANK ([id number]) 1940 M Date Time Provider Department 01/23/23 ERROL ROD AGPOB1 During your visit today, we recorded the following information about you: Cynthia Mareslotarben Diaz 01/23/2023 5:12 PM Signed [facility] called in with 2 questions [...] Fully Assessed Reason for Visit: Patient Question [1167] Appointment [186] Prescriptions as of 01/27/2023 - [...] to moisture [R*01/03/2023 Coronary artery disease involving t[place] churchill*01/04/2023 S/P CABG (coronary artery bypass graft) [...] ischemic ulcer (HCC*01/07/2023 Encounter Status:Closed by CRISTOBAL CONDUCTOR PULLMAN JEAN PAUL GEORGE on 01/27/23 [facility] Absolute lymphocyte countOrd ered By: Paco Norman on 01-22-2023 Lymphocytes Auto (Unsp spec) [#/Vol] 0.96 10*3/uL 0.83-4.51 [facility] Basophil percentageOrdered B y: Paco Norman on 01-22-2023 Basophil percentage 91 mg/dL 74-106 [facility] Basophil percentage 143 mmol/L 136-145 [facility] Basophil percentage 4.5 mmol/L 3.5-5.1 [facility] Basophil percentage 112 mmol/L 98-107 [facility] Basophils (Bld) [#/Vol] 4.8 10*3/uL 4.4-11.0 [facility] Basophils (Bld) [#/Vol] 3.2 10*3/uL 2.0-7.7 [facility] Basophils/100 WBC (Bld) 66.4 % 47-70 [facility] Basophils/100 WBC (Bld) 4.0 % 0-5 [facility] Basophils/100 WBC (Bld) 0.6 % 0-1 [facility] Blood erythrocytes count (nu mber/volume)Ordered By: Paco Normna on 01-22-2023 RBC (Bld) [#/Vol] 2.62 10*6/uL 4.6-6.2 [facility] Blood hemoglobin measurement (mass/volume)Ordered By: Paco Norman on 01-22-2023 Hemoglobin (Bld) [Mass/Vol] 8.4 g/dL 13.0-16.5 [facility] Blood lymphocytes/100 leukoc ytesOrdered By: Paco Norman on 01-22-2023 Lymphocytes/100 WBC (Bld) 20.0 % 19-41 [facility] Blood monocytes/100 leukocyt esOrdered By: Paco Norman on 01-22-2023 Monocytes/100 WBC (Bld) 8.6 % 0-10 [facility] Blood platelet mean volumeOr dered By: Paco Norman on 01-22-2023 Platelet mean volume (Bld) [Entitic vol] 9.4 fL 6.2-12.0 [facility] CNOVon 01-22-2023 CNOV Office Visit (NEAGCL M) AMAURY BLANK ([id number]) 1940 M Date Time Provider Department 01/22/23 11:30 AM AZUCENA VO NEAGCLM During your visit today, we recorded the following information about you: Pulse Blood pressure Weight Height 66/minute 87/51 75 kg 1.778 m Azucena Vo APRN.CNP 01/22/2023 12:19 PM Signed NEUROSURGERY FOLLOW UP OFFICE NOTE zAucena Vo APRN.CNP Date of visit: January 22, 2023 Patient Name: Mr.Vincent Calvin Blank Date of : 1940 Current Age: [age] year old Sex: male MRN/E# [id number] Last Office Visit: Hospital follow-up Chief Complaint: [...] (more content not included)... Normal [facility] Determination of erythrocyte mean corpuscular volume (MCV)Ordered By: Paco Norman on 01-22-2023 MCV (RBC) [Entitic vol] 103.4 fL 80-94 [facility] Hematocrit Auto (Bld) [Volum e fraction]Ordered By: Paco Norman on 01-22-2023 Hematocrit (Bld) [Volume fraction] 27.1 % 40-54 [facility] MCHC Auto (RBC) [Mass/Vol]Or dered By: Paco Norman on 01-22-2023 MCHC (RBC) [Mass/Vol] 31.0 g/dL 32-36 [facility] No Panel InformationOrdered By: Paco Norman on 01-22-2023 32.1 pg 27.0-32.0 [facility] 14.6 % 11.6-14.6 [facility] 55.3 fl 35.1-43.9 [facility] 0.400 % 0.0-0.9 [facility] 0 % 0-5 [facility] 31 mL/min >60 [facility] 37 mL/min >60 [facility] 28.1 RATIO 10-20 [facility] 28.0 mmol/L 21.0-32.0 [facility] Platelets bldOrdered By: Rajendra Norman on 01-22-2023 Platelets (Bld) [#/Vol] 174 10*3/uL 150-450 [facility] Serum or plasma calcium elvia urement (mass/volume)Ordered By: Paco Norman on 01-22-2023 Calcium [Mass/Vol] 8.8 mg/dL 8.5-10.1 [facility] Serum or plasma creatinine m easurement (mass/volume)Ordered By: Paco Norman on 01-22-2023 Creatinine [Mass/Vol] 2.21 mg/dL 0.70-1.30 [facility] Serum or plasma urea nitroge n measurement (mass/volume)Ordered By: Paco Norman on 01-22-2023 Urea nitrogen [Mass/Vol] 62 mg/dL 7-18 [facility] Thin prep Papanicolaou smear with manual screeningOrdered By: Paco Norman on 01-22-2023 Thin prep Papanicolaou smear with manual screening 3 5-15 [facility] CT BRAIN WO IVCONon 01-21-[address] BRAIN WO IVCON * * *Final Report* * * DATE OF EXAM: Jan 20 2023 11:54AM [facility] 0504 - CT BRAIN WO IVCON [...] recon COMPARISON: MRI brain from 01/05/2023. RESULT: Buffing Wheel Former Automatic (topogram) images: Unremarkable. Post-operative change: None. 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 [facility] Transcribe Date/Time: Jan 20 2023 12:52P Dictated by : DEE MANDUJANO MD This examination was interpreted and the report reviewed and electronically signed by: DEE MANDUJANO MD on Jan 20 2023 12:54PM EST [id number] Normal [facility] Absolute lymphocyte countOrd ered By: Paco Norman on 01-15-2023 Lymphocytes Auto (Unsp spec) [#/Vol] 0.92 10*3/uL 0.83-4.51 [facility] Basophil percentageOrdered B y: Jelenamonse Emerson on 01-15-2023 Basophil percentage 95 mg/dL 74-106 [facility] Basophil percentage 141 mmol/L 136-145 [facility] Basophil percentage 4.9 mmol/L 3.5-5.1 [facility] Basophil percentage 109 mmol/L 98-107 [facility] Basophils (Bld) [#/Vol] 6.3 10*3/uL 4.4-11.0 [facility] Basophils (Bld) [#/Vol] 4.5 10*3/uL 2.0-7.7 [facility] Basophils/100 WBC (Bld) 71.9 % 47-70 [facility] Basophils/100 WBC (Bld) 1.7 % 0-5 [facility] Basophils/100 WBC (Bld) 0.5 % 0-1 [facility] Blood erythrocytes count (nu mber/volume)Ordered By: Paco Norman on 01-15-2023 RBC (Bld) [#/Vol] 2.51 10*6/uL 4.6-6.2 [facility] Blood hemoglobin measurement (mass/volume)Ordered By: Paco Norman on 01-15-2023 Hemoglobin (Bld) [Mass/Vol] 8.0 g/dL 13.0-16.5 [facility] Blood lymphocytes/100 leukoc ytesOrdered By: Paco Norman on 01-15-2023 Lymphocytes/100 WBC (Bld) 14.6 % 19-41 [facility] Blood monocytes/100 leukocyt esOrdered By: Paco Norman on 01-15-2023 Monocytes/100 WBC (Bld) 10.5 % 0-10 [facility] Blood platelet mean volumeOr dered By: Paco Norman on 01-15-2023 Platelet mean volume (Bld) [Entitic vol] 9.4 fL 6.2-12.0 [facility] Determination of erythrocyte mean corpuscular volume (MCV)Ordered By: Paco Norman on 01-15-2023 MCV (RBC) [Entitic vol] 104.4 fL 80-94 [facility] Hematocrit Auto (Bld) [Volum e fraction]Ordered By: Paco Norman on 01-15-2023 Hematocrit (Bld) [Volume fraction] 26.2 % 40-54 [facility] MCHC Auto (RBC) [Mass/Vol]Or dered By: Paco Norman on 01-15-2023 MCHC (RBC) [Mass/Vol] 30.5 g/dL 32-36 [facility] No Panel InformationOrdered By: Riaznicholasdel Norman on 01-15-2023 31.9 pg 27.0-32.0 [facility] 14.4 % 11.6-14.6 [facility] 54.6 fl 35.1-43.9 [facility] 0.800 % 0.0-0.9 [facility] 0 % 0-5 [facility] 29 mL/min >60 [facility] 35 mL/min >60 [facility] 27.9 RATIO 10-20 [facility] 26.0 mmol/L 21.0-32.0 [facility] Platelets bldOrdered By: Rajendra davondel Norman on 01-15-2023 Platelets (Bld) [#/Vol] 196 10*3/uL 150-450 [facility] Serum or plasma calcium elvia urement (mass/volume)Ordered By: Paco Norman on 01-15-2023 Calcium [Mass/Vol] 8.7 mg/dL 8.5-10.1 [facility] Serum or plasma creatinine m easurement (mass/volume)Ordered By: Paco Norman on 01-15-2023 Creatinine [Mass/Vol] 2.33 mg/dL 0.70-1.30 [facility] Serum or plasma urea nitroge n measurement (mass/volume)Ordered By: Paco Norman on 01-15-2023 Urea nitrogen [Mass/Vol] 65 mg/dL 7-18 [facility] Thin prep Papanicolaou smear with manual screeningOrdered By: Paco Norman on 01-15-2023 Thin prep Papanicolaou smear with manual screening 6 5-15 [facility] Absolute lymphocyte countOrd ered By: Paco Norman on 01-13-2023 Lymphocytes Auto (Unsp spec) [#/Vol] 1.17 10*3/uL 0.83-4.51 [facility] Basophil percentageOrdered B y: Paco Norman on 01-13-2023 Basophils (Bld) [#/Vol] 6.4 10*3/uL 4.4-11.0 [facility] Basophils (Bld) [#/Vol] 4.3 10*3/uL 2.0-7.7 [facility] Basophils/100 WBC (Bld) 67.6 % 47-70 [facility] Basophils/100 WBC (Bld) 1.9 % 0-5 [facility] Basophils/100 WBC (Bld) 0.3 % 0-1 [facility] Blood erythrocytes count (nu mber/volume)Ordered By: Jelenamonse Norman on 01-13-2023 RBC (Bld) [#/Vol] 2.54 10*6/uL 4.6-6.2 [facility] Blood hemoglobin measurement (mass/volume)Ordered By: Riazongdel Norman on 01-13-2023 Hemoglobin (Bld) [Mass/Vol] 8.3 g/dL 13.0-16.5 [facility] Blood lymphocytes/100 leukoc ytesOrdered By: Riazongdel Españadyanasreedhar on 01-13-2023 Lymphocytes/100 WBC (Bld) 18.4 % 19-41 [facility] Blood monocytes/100 leukocyt esOrdered By: Efewongbe Oledyanae on 01-13-2023 Monocytes/100 WBC (Bld) 11.5 % 0-10 [facility] Blood platelet mean volumeOr dered By: Riazongbe Aniyahsreedhar on 01-13-2023 Platelet mean volume (Bld) [Entitic vol] 9.4 fL 6.2-12.0 [facility] CNPNon 01-13-2023 AUDIN Telephone (AGPOB1) AMAURY BLANK ([id number]) 1940 M Date Time Provider Department 01/13/23 ERROL ROD During your visit today, we recorded the following information about you: Cristobal Pharm Tech Jean Paul George 01/13/2023 4:43 PM Signed Received: 3 days ago Saida Pharm Tech PpgBrooke Onamia Jean Paul George Previous Messages ----- Message [...] Date of : 1940 Previous Provider Seen: [facility] Body Part(s) Identified: leg Diagnosis/Reason For Visit: post op Reason for the call/escalation: pt is staying at [facility].estefania called to schedule pt a post op appt tool will not allow scheduling If reason for call/escalation is discharge from ED/ER or Hospital, which facility was the patient seen at: na Was an appointment scheduled (Y/N): n Person calling if other than patient: na Return call to if other than patient: na Best contact number: [phone] Thank you, Irina Andres January 10, 2023 12:03 PM Jean Paul Mares 01/22/2023 4:29 PM Signed Called assisted Allergies As of Date: 01/13/2023 Noted Allergy Reaction AMLODIPINE 12/13/2014 2 - Rash LOVASTATIN 12/13/2014 4 - Hives Date Reviewed: 01/04/2023 Reviewed by: Moni Childers RN - Fully Assessed Reason for Visit: Contact Center Call [[id number]] Prescriptions as of 01/22/2023 - acetaminophen (TYLENOL [...] to moisture [R*01/03/2023 Coronary artery disease involving [place] churchill*01/04/2023 S/P CABG (coronary artery bypass graft) [...] ischemic ulcer (HCC*01/07/2023 Encounter Status:Closed by CRISTOBAL CONDUCTOR PULLMAN JEAN PAUL GEORGE on 01/22/23 [facility] Determination of erythrocyte mean corpuscular volume (MCV)Ordered By: Paco Norman on 01-13-2023 MCV (RBC) [Entitic vol] 103.9 fL 80-94 [facility] Hematocrit Auto (Bld) [Volum e fraction]Ordered By: Paco Norman on 01-13-2023 Hematocrit (Bld) [Volume fraction] 26.4 % 40-54 [facility] MCHC Auto (RBC) [Mass/Vol]Or dered By: Paco Norman on 01-13-2023 MCHC (RBC) [Mass/Vol] 31.4 g/dL 32-36 [facility] No Panel InformationOrdered By: Paco Norman on 01-13-2023 32.7 pg 27.0-32.0 [facility] 14.5 % 11.6-14.6 [facility] 54.8 fl 35.1-43.9 [facility] 0.300 % 0.0-0.9 [facility] 0 % 0-5 [facility] Platelets bldOrdered By: Rajendra Norman on 01-13-2023 Platelets (Bld) [#/Vol] 200 10*3/uL 150-450 [facility] Absolute lymphocyte countOrd ered By: Paco Norman on 01-10-2023 Lymphocytes Auto (Unsp spec) [#/Vol] 0.93 10*3/uL 0.83-4.51 [facility] Basophil percentageOrdered B y: Paco Dillsreedhar on 01-10-2023 Basophil percentage 96 mg/dL 74-106 [facility] Basophil percentage 4.9 g/dL 6.4-8.2 [facility] Basophil percentage 0.40 mg/dL 0.20-1.00 [facility] Basophil percentage 140 mmol/L 136-145 [facility] Basophil percentage 4.5 mmol/L 3.5-5.1 [facility] Basophil percentage 112 mmol/L 98-107 [facility] Basophils (Bld) [#/Vol] 4.9 10*3/uL 4.4-11.0 [facility] Basophils (Bld) [#/Vol] 3.2 10*3/uL 2.0-7.7 [facility] Basophils/100 WBC (Bld) 65.5 % 47-70 [facility] Basophils/100 WBC (Bld) 2.6 % 0-5 [facility] Basophils/100 WBC (Bld) 0.2 % 0-1 [facility] Blood erythrocytes count (nu mber/volume)Ordered By: Paco Nomran on 01-10-2023 RBC (Bld) [#/Vol] 2.47 10*6/uL 4.6-6.2 [facility] Blood hemoglobin measurement (mass/volume)Ordered By: Paco Norman on 01-10-2023 Hemoglobin (Bld) [Mass/Vol] 8.0 g/dL 13.0-16.5 [facility] Blood lymphocytes/100 leukoc ytesOrdered By: Paco Norman on 01-10-2023 Lymphocytes/100 WBC (Bld) 18.9 % 19-41 [facility] Blood monocytes/100 leukocyt esOrdered By: Jelenapilloongdel Españadyanasreedhar on 01-10-2023 Monocytes/100 WBC (Bld) 12.2 % 0-10 [facility] Blood platelet mean volumeOr dered By: Paco Españadyanasreedhar on 01-10-2023 Platelet mean volume (Bld) [Entitic vol] 9.1 fL 6.2-12.0 [facility] Determination of erythrocyte mean corpuscular volume (MCV)Ordered By: Paco Norman on 01-10-2023 MCV (RBC) [Entitic vol] 102.8 fL 80-94 [facility] Hematocrit Auto (Bld) [Volum e fraction]Ordered By: Paco Norman on 01-10-2023 Hematocrit (Bld) [Volume fraction] 25.4 % 40-54 [facility] MCHC Auto (RBC) [Mass/Vol]Or dered By: Paco Norman on 01-10-2023 MCHC (RBC) [Mass/Vol] 31.5 g/dL 32-36 [facility] No Panel InformationOrdered By: Paco Norman on 01-10-2023 32.4 pg 27.0-32.0 [facility] 14.8 % 11.6-14.6 [facility] 56.1 fl 35.1-43.9 [facility] 0.600 % 0.0-0.9 [facility] 0 % 0-5 [facility] 30 mL/min >60 [facility] 37 mL/min >60 [facility] 24.2 RATIO 10-20 [facility] 3.0 g/dL 2.2-4.2 [facility] 141 U/L 45-117 [facility] 20 U/L 16-61 [facility] 22.0 mmol/L 21.0-32.0 [facility] Platelets bldOrdered By: Rajendra Norman on 01-10-2023 Platelets (Bld) [#/Vol] 159 10*3/uL 150-450 [facility] Serum or plasma albumin elvia urement (mass/volume)Ordered By: Paco Norman on 01-10-2023 Albumin [Mass/Vol] 1.9 g/dL 3.2-5.0 [facility] Serum or plasma albumin/glob ulin mass ratioOrdered By: Paco Norman on 01-10-2023 Albumin/Globulin [Mass ratio] 0.6 {ratio} 0.9-2.4 [facility] Serum or plasma calcium elvia urement (mass/volume)Ordered By: Paco Norman on 01-10-2023 Calcium [Mass/Vol] 8.4 mg/dL 8.5-10.1 [facility] Serum or plasma creatinine m easurement (mass/volume)Ordered By: Paco Norman on 01-10-2023 Creatinine [Mass/Vol] 2.23 mg/dL 0.70-1.30 [facility] Serum or plasma urea nitroge n measurement (mass/volume)Ordered By: Paco Norman on 01-10-2023 Urea nitrogen [Mass/Vol] 54 mg/dL 7-18 [facility] Thin prep Papanicolaou smear with manual screeningOrdered By: Paco Norman on 01-10-2023 Thin prep Papanicolaou smear with manual screening 31 U/L 15-37 [facility] Thin prep Papanicolaou smear with manual screening 6 5-15 [facility] Basic metabolic 2000 panelon 01-09-2023 Anion gap [Moles/Vol] 9 mmol/L Normal 9-18 [facility] Comment on above: Order Comment: Speci men Type: BLOOD SPECIMEN Ordering Facility: [facility] Address: [address] [address] Performed By: #### 5 8410-2 #### [facility] CLIA [id number] [address] [place] Calcium [Mass/Vol] 8.2 mg/dL Low 8.5-10.2 [facility] Comment on above: Order Comment: Speci men Type: BLOOD SPECIMEN Ordering Facility: [facility] Address: [address] [address] Performed By: #### 5 8410-2 #### [facility] CLIA [id number] 1 [place] [address] [place] Chloride [Moles/Vol] 108 mmol/L High 97-105 [facility] Comment on above: Order Comment: Speci men Type: BLOOD SPECIMEN Ordering Facility: [facility] Address: [address] [address] Performed By: #### 5 8410-2 #### [facility] CLIA [id number] [address] CO2 [Moles/Vol] 21 mmol/L Low 22-30 [facility] Comment on above: Order Comment: Speci men Type: BLOOD SPECIMEN Ordering Facility: [facility] Address: [address] [address] Performed By: #### 5 8410-2 #### [facility] CLIA [id number] [address] STATES [facility] Creatinine [Mass/Vol] 2.14 mg/dL High 0.73-1.22 [facility] Comment on above: Order Comment: Speci men Type: BLOOD SPECIMEN Ordering Facility: [facility] Address: [address] [place] [address] Performed By: #### 5 8410-2 #### [facility] CLIA [id number] [address] ESTIMATED GLOMERULAR FILTRATION RATE 30 mL/min/1.73m??? Low >=60 [facility] Comment on above: Order Comment: Speci men Type: BLOOD SPECIMEN Ordering Facility: [facility] Address: [address] [place] [address] Result Comment: Lindsay mated Glomerular Filtration Rate [...] GFR. Performed By: #### 5 8410-2 #### [facility] CLIA [id number] [address] Glucose [Mass/Vol] 107 mg/dL High 74-99 [facility] Comment on above: Order Comment: Speci men Type: BLOOD SPECIMEN Ordering Facility: [facility] Address: [address] [place] [address] Result Comment: The [place] Diabetes Association (ADA) provides guidance for cutoff [...] Standards of Medical Care in Diabetes 2016, [place] [employer]. Diabetes Care. 2016.39(Suppl 1). Performed By: #### 5 8410-2 #### [facility] CLIA [id number] [address] STATES OF [facility] Potassium [Moles/Vol] 4.5 mmol/L Normal 3.7-5.1 [facility] Comment on above: Order Comment: Speci akil Type: BLOOD SPECIMEN Ordering Facility: [facility] Address: [address] [address] Performed By: #### 5 8410-2 #### [facility] CLIA [id number] [address] STATES [facility] Sodium [Moles/Vol] 138 mmol/L Normal 136-144 [facility] Comment on above: Order Comment: Jamesi akil Type: BLOOD SPECIMEN Ordering Facility: [facility] Address: [address] [address] Performed By: #### 5 8410-2 #### [facility] CLIA [id number] [address] STATES [facility] Urea nitrogen [Mass/Vol] 44 mg/dL High 9-24 [facility] Comment on above: Order Comment: Jamesi akil Type: BLOOD SPECIMEN Ordering Facility: [facility] Address: [address] [address] Performed By: #### 5 8410-2 #### [facility] CLIA [id number] [address] OF [place] CBC panel Auto (Bld)on 01-09 Erythrocyte distribution width (RBC) [Ratio] 14.9 % Normal 11.5-15.0 [facility] Comment on above: Order Comment: Speci men Type: BLOOD SPECIMEN Ordering Facility: [facility] Address: [address] [address] Performed By: #### 5 8410-2 #### [facility] CLIA [id number] [address] Hematocrit (Bld) [Volume fraction] 24.6 % Low 39.0-51.0 [facility] Comment on above: Order Comment: Speci men Type: BLOOD SPECIMEN Ordering Facility: [facility] Address: [address] [place] [address] Performed By: #### 5 8410-2 #### [facility] CLIA [id number] [address] OF [facility] Hemoglobin (Bld) [Mass/Vol] 7.8 g/dL Low 13.0-17.0 [facility] Comment on above: Order Comment: Speci men Type: BLOOD SPECIMEN Ordering Facility: [facility] Address: [address] [address] Performed By: #### 5 8410-2 #### [facility] CLIA [id number] [address] MCH (RBC) [Entitic mass] 31.6 pg Normal 26.0-34.0 [facility] Comment on above: Order Comment: Speci men Type: BLOOD SPECIMEN Ordering Facility: [facility] Address: [address] [address] Performed By: #### 5 8410-2 #### [facility] CLIA [id number] [address] MCHC (RBC) [Mass/Vol] 31.7 g/dL Normal 30.5-36.0 [facility] Comment on above: Order Comment: Speci men Type: BLOOD SPECIMEN Ordering Facility: [facility] Address: [address] [place] [address] Performed By: #### 5 8410-2 #### [facility] CLIA [id number] [address] MCV (RBC) [Entitic vol] 99.6 fL Normal 80.0-100.0 [facility] Comment on above: Order Comment: Speci men Type: BLOOD SPECIMEN Ordering Facility: [facility] Address: [address] [place] [address] Performed By: #### 5 8410-2 #### [facility] CLIA [id number] [address] OF [place] Nucleated RBC (Bld) [#/Vol] 10*3/uL Normal <0.01 [facility] Comment on above: Order Comment: Speci men Type: BLOOD SPECIMEN Ordering Facility: [facility] Address: [address] [place] [address] Performed By: #### 5 8410-2 #### [facility] CLIA [id number] [address] Platelet mean volume (Bld) [Entitic vol] 9.7 fL Normal 9.0-12.7 [facility] [facility] Comment on above: Order Comment: Speci men Type: BLOOD SPECIMEN Ordering Facility: [facility] Address: [address] [place] [address] Performed By: #### 5 8410-2 #### [facility] CLIA [id number] [address] Platelets (Bld) [#/Vol] 162 10*3/uL Normal 150-400 [facility] Comment on above: Order Comment: Speci men Type: BLOOD SPECIMEN Ordering Facility: [facility] Address: [address] [place] [address] Performed By: #### 5 8410-2 #### [facility] CLIA [id number] [address] OF [place] RBC (Bld) [#/Vol] 2.47 10*6/uL Low 4.20-6.00 [facility] Comment on above: Order Comment: Speci men Type: BLOOD SPECIMEN Ordering Facility: [facility] Address: [place] [id number] Performed By: #### 5 8410-2 #### [facility] CLIA [id number] [address] WBC (Bld) [#/Vol] 4.84 10*3/uL Normal 3.70-11.00 [facility] Comment on above: Order Comment: Speci men Type: BLOOD SPECIMEN Ordering Facility: [facility] Address: [place] [address] Performed By: #### 5 8410-2 #### [facility] CLIA [id number] [address] CNDSon 01-09-2023 CNDS HNO ID: [id number] Author: Jacob Sanchez MD Service: General Surgery [...] Patient was evaluated in the ED at [facility] on 01/03/2023 after a fall. As [...] that the patient be discharged to a fpc facility. He was deemed medically stable for discharge to a fpc facility by the attending trauma surgeon on 01/09/2023. OTHER PROBLEMS/DIAGNOSIS: Principal Problem (Resolved): Head injury, acute, without loss of consciousness, sequela Active Problems: Skin tear of left elbow without complication Noninfected skin tear of left leg Alteration in skin integrity due to moisture Coronary artery disease involving [place] coronary artery of [place] heart S/P CABG (coronary artery bypass graft) [...] THIS TIME: N/A Discharge Disposition Discharge Disposition: [facility] Facility - Less than 30 Days Activity [...] (more content not included)... Normal [facility] SARS-CoV-2 RNA Resp Ql SANTANA+p robeon 01-09-2023 SARS-CoV-2 (COVID-19) RNA SANTANA+probe Ql (Resp) COVID 19 RESULT: Not detected The method used is RT-PCR or an equivalent NAAT method. Reference Range(the expected result in uninfected individuals): Not detected Normal [facility] Comment on above: Performed By: #### 9 4500-6 ####[facility] [id number] [address] OF [facility] THERAPY NTon 01-09-2023 THERAPY NT HNO ID: [id number] Author: Tremayne Mckeon, CHAY Service: Physical Therapy Author Type: Physical Therapist Type: Therapy (PT/OT/Speech/Resp) Filed: 01/09/2023 9:26 AM Note Text: Physical Therapy Treatment SERVICE DATE: 01/09/2023 SERVICE TIME: 846 to 909 ROOM: [place] [address] Recommended Discharge Disposition: Subacute/SNF Recommended Discharge Disposition [...] (more content not included)... Normal [facility] Basic metabolic 2000 panelon 01-08-2023 Anion gap [Moles/Vol] 11 mmol/L Normal 9-18 [facility] Comment on above: Order Comment: Speci men Type: BLOOD SPECIMEN Ordering Facility: [facility] Address: [address] [place] [address] Performed By: #### 5 8410-2 #### [facility] CLIA [id number] 1 [place] [address] [place] Calcium [Mass/Vol] 8.4 mg/dL Low 8.5-10.2 [facility] Comment on above: Order Comment: Speci men Type: BLOOD SPECIMEN Ordering Facility: [facility] Address: [address] [place] [address] Performed By: #### 5 8410-2 #### [facility] CLIA [id number] [address] [place] Chloride [Moles/Vol] 106 mmol/L High 97-105 [facility] Comment on above: Order Comment: Speci men Type: BLOOD SPECIMEN Ordering Facility: [facility] Address: [address] [place] [address] Performed By: #### 5 8410-2 #### [facility] CLIA [id number] [address] [place] CO2 [Moles/Vol] 20 mmol/L Low 22-30 [facility] Comment on above: Order Comment: Speci men Type: BLOOD SPECIMEN Ordering Facility: [facility] Address: [address] [place] [address] Performed By: #### 5 8410-2 #### [facility] CLIA [id number] [address] [place] [address] [place] Creatinine [Mass/Vol] 2.21 mg/dL High 0.73-1.22 [facility] Comment on above: Order Comment: Speci men Type: BLOOD SPECIMEN Ordering Facility: [facility] Address: [address] [place] [address] Performed By: #### 5 8410-2 #### [facility] CLIA [id number] [address] [place] ESTIMATED GLOMERULAR FILTRATION RATE 29 mL/min/1.73m??? Low >=60 [facility] Comment on above: Order Comment: Speci men Type: BLOOD SPECIMEN Ordering Facility: [facility] Address: [address] [place] [address] Result Comment: Lindsay mated Glomerular Filtration Rate [...] 5 8410-2 #### [facility] CLIA [id number] 1 [place] [address] [place] Glucose [Mass/Vol] 128 mg/dL High 74-99 [facility] Comment on above: Order Comment: Migel barnard Type: BLOOD SPECIMEN Ordering Facility: [facility] Address: [address] [place] [address] Result Comment: The [place] Diabetes Association (ADA) provides guidance for cutoff [...] Standards of Medical Care in Diabetes 2016, [place] Diabetes Association. Diabetes Care. 2016.39(Suppl 1). Performed By: #### 5 8410-2 #### [facility] CLIA [id number] 1 [place] [address] [place] Potassium [Moles/Vol] 4.3 mmol/L Normal 3.7-5.1 [facility] Comment on above: Order Comment: Migel barnard Type: BLOOD SPECIMEN Ordering Facility: [facility] Address: [address] [place] [address] Performed By: #### 5 8410-2 #### [facility] CLIA [id number] 1 [place] [address] [place] Sodium [Moles/Vol] 137 mmol/L Normal 136-144 [facility] Comment on above: Order Comment: Migel barnard Type: BLOOD SPECIMEN Ordering Facility: [facility] Address: [address] [place] [address] Performed By: #### 5 8410-2 #### [facility] CLIA [id number] [address] STATES [facility] Urea nitrogen [Mass/Vol] 43 mg/dL High 9-24 [facility] Comment on above: Order Comment: Speci men Type: BLOOD SPECIMEN Ordering Facility: [facility] Address: [address] [place] [address] Performed By: #### 5 8410-2 #### [facility] CLIA [id number] [address] CBC panel Auto (Bld)on 01-08 Erythrocyte distribution width (RBC) [Ratio] 14.9 % Normal 11.5-15.0 [facility] Comment on above: Order Comment: Speci men Type: BLOOD SPECIMEN Ordering Facility: [facility] Address: [address] [place] [address] Performed By: #### 5 8410-2 #### [facility] CLIA [id number] [address] Hematocrit (Bld) [Volume fraction] 24.5 % Low 39.0-51.0 [facility] Comment on above: Order Comment: Speci men Type: BLOOD SPECIMEN Ordering Facility: [facility] Address: [address] [place] [address] Performed By: #### 5 8410-2 #### [facility] CLIA [id number] [address] OF [facility] Hemoglobin (Bld) [Mass/Vol] 7.9 g/dL Low 13.0-17.0 [facility] Comment on above: Order Comment: Speci men Type: BLOOD SPECIMEN Ordering Facility: [facility] Address: [address] [place] [address] Performed By: #### 5 8410-2 #### [facility] CLIA [id number] [address] MCH (RBC) [Entitic mass] 32.1 pg Normal 26.0-34.0 [facility] Comment on above: Order Comment: Speci men Type: BLOOD SPECIMEN Ordering Facility: [facility] Address: [address] [place] [address] Performed By: #### 5 8410-2 #### [facility] CLIA [id number] [address] MCHC (RBC) [Mass/Vol] 32.2 g/dL Normal 30.5-36.0 [facility] Comment on above: Order Comment: Speci men Type: BLOOD SPECIMEN Ordering Facility: [facility] Address: [address] [place] [address] Performed By: #### 5 8410-2 #### [facility] CLIA [id number] [address] MCV (RBC) [Entitic vol] 99.6 fL Normal 80.0-100.0 [facility] Comment on above: Order Comment: Speci men Type: BLOOD SPECIMEN Ordering Facility: [facility] Address: [address] [place] [address] Performed By: #### 5 8410-2 #### [facility] CLIA [id number] [address] Nucleated RBC (Bld) [#/Vol] 10*3/uL Normal <0.01 [facility] Comment on above: Order Comment: Speci men Type: BLOOD SPECIMEN Ordering Facility: [facility] Address: [address] [place] [place] [address] Performed By: #### 5 8410-2 #### [facility] CLIA [id number] [address] Platelet mean volume (Bld) [Entitic vol] 9.6 fL Normal 9.0-12.7 [facility] Comment on above: Order Comment: Speci men Type: BLOOD SPECIMEN Ordering Facility: [facility] Address: [address] [place] [address] Performed By: #### 5 8410-2 #### [facility] CLIA [id number] [address] Platelets (Bld) [#/Vol] 160 10*3/uL Normal 150-400 [facility] Comment on above: Order Comment: Speci men Type: BLOOD SPECIMEN Ordering Facility: [facility] Address: [address] [place] [address] Performed By: #### 5 8410-2 #### [facility] CLIA [id number] [address] OF [facility] RBC (Bld) [#/Vol] 2.46 10*6/uL Low 4.20-6.00 [facility] Comment on above: Order Comment: Speci men Type: BLOOD SPECIMEN Ordering Facility: [facility] Address: [address] [place] [address] Performed By: #### 5 8410-2 #### [facility] CLIA [id number] [address] OF [facility] WBC (Bld) [#/Vol] 5.51 10*3/uL Normal 3.70-11.00 [facility] Comment on above: Order Comment: Speci men Type: BLOOD SPECIMEN Ordering Facility: [facility] Address: [address] [place] [address] Performed By: #### 5 8410-2 #### 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 Normal [facility] Basic metabolic 2000 panelon 01-07-2023 Anion gap [Moles/Vol] 10 mmol/L Normal 9-18 [facility] Comment on above: Order Comment: Speci men Type: BLOOD SPECIMEN Ordering Facility: [facility] Address: [address] [place] [place] [address] Performed By: #### 5 8410-2 #### [facility] CLIA [id number] 1 [place] [address] [place] Calcium [Mass/Vol] 8.6 mg/dL Normal 8.5-10.2 [facility] Comment on above: Order Comment: Speci men Type: BLOOD SPECIMEN Ordering Facility: [facility] Address: [address] [place] [address] Performed By: #### 5 8410-2 #### [facility] CLIA [id number] 1 [place] [address] [place] Chloride [Moles/Vol] 105 mmol/L Normal 97-105 [facility] Comment on above: Order Comment: Speci men Type: BLOOD SPECIMEN Ordering Facility: [facility] Address: [address] [place] [address] Performed By: #### 5 8410-2 #### [facility] CLIA [id number] [address] [place] CO2 [Moles/Vol] 22 mmol/L Normal 22-30 [facility] Comment on above: Order Comment: Speci men Type: BLOOD SPECIMEN Ordering Facility: [facility] Address: [address] [place] [address] Performed By: #### 5 8410-2 #### [facility] CLIA [id number] [address] OF [facility] Creatinine [Mass/Vol] 2.38 mg/dL High 0.73-1.22 [facility] Comment on above: Order Comment: Speci men Type: BLOOD SPECIMEN Ordering Facility: [facility] Address: [address] [place] [address] Performed By: #### 5 8410-2 #### [facility] CLIA [id number] [address] ESTIMATED GLOMERULAR FILTRATION RATE 27 mL/min/1.73m??? Low >=60 [facility] Comment on above: Order Comment: Speci men Type: BLOOD SPECIMEN Ordering Facility: [facility] Address: [address] [place] [address] Result Comment: Lindsay mated Glomerular Filtration Rate [...] GFR. Performed By: #### 5 8410-2 #### [facility] CLIA [id number] [address] [place] Glucose [Mass/Vol] 103 mg/dL High 74-99 [facility] Comment on above: Order Comment: Migel barnard Type: BLOOD SPECIMEN Ordering Facility: [facility] Address: [address] [place] [address] Result Comment: The [place] Diabetes Association (ADA) provides guidance for cutoff [...] Standards of Medical Care in Diabetes 2016, [place] [employer]. Diabetes Care. 2016.39(Suppl 1). Performed By: #### 5 8410-2 #### [facility] CLIA [id number] 1 [place] [address] [place] Potassium [Moles/Vol] 4.4 mmol/L Normal 3.7-5.1 [facility] Comment on above: Order Comment: Migel barnard Type: BLOOD SPECIMEN Ordering Facility: [facility] Address: [address] [place] [address] Performed By: #### 5 8410-2 #### [facility] CLIA [id number] 1 [place] [address] [place] Sodium [Moles/Vol] 137 mmol/L Normal 136-144 [facility] Comment on above: Order Comment: Jamesi men Type: BLOOD SPECIMEN Ordering Facility: [facility] Address: [address] [place] [address] Performed By: #### 5 8410-2 #### [facility] CLIA [id number] 1 [place] [address] [place] Urea nitrogen [Mass/Vol] 42 mg/dL High 9-24 [facility] Comment on above: Order Comment: Jamesi men Type: BLOOD SPECIMEN Ordering Facility: [facility] Address: [address] [address] Performed By: #### 5 8410-2 #### [facility] CLIA [id number] [address] OF [facility] CASE MANAGEMon 01-07-2023 CASE MANAGEM HNO ID: [id number] Author: ANNE Pena Service: ? Author Type: Relations Liaison Type: Care Mgt Progress Note Filed: 01/07/2023 [...] 07, 2023 TIME: 8:17 AM PAGER/CONTACT #: [phone] Normal [facility] CBC panel Auto (Bld)on 01-07 Erythrocyte distribution width (RBC) [Ratio] 15.1 % High 11.5-15.0 [facility] Comment on above: Order Comment: Speci men Type: BLOOD SPECIMEN Ordering Facility: [facility] Address: [address] [place] [address] Performed By: #### 5 8410-2 #### [facility] CLIA [id number] [address] OF [facility] Hematocrit (Bld) [Volume fraction] 25.5 % Low 39.0-51.0 [facility] Comment on above: Order Comment: Speci men Type: BLOOD SPECIMEN Ordering Facility: [facility] Address: [address] [place] [address] Performed By: #### 5 8410-2 #### [facility] CLIA [id number] [address] [place] Hemoglobin (Bld) [Mass/Vol] 8.2 g/dL Low 13.0-17.0 [facility] Comment on above: Order Comment: Speci men Type: BLOOD SPECIMEN Ordering Facility: [facility] Address: [address] [place] [address] Performed By: #### 5 8410-2 #### [facility] CLIA [id number] [address] MCH (RBC) [Entitic mass] 31.8 pg Normal 26.0-34.0 [facility] Comment on above: Order Comment: Speci men Type: BLOOD SPECIMEN Ordering Facility: [facility] Address: [address] [place] [address] Performed By: #### 5 8410-2 #### [facility] CLIA [id number] [address] MCHC (RBC) [Mass/Vol] 32.2 g/dL Normal 30.5-36.0 [facility] Comment on above: Order Comment: Speci men Type: BLOOD SPECIMEN Ordering Facility: [facility] Address: [address] [place] [address] Performed By: #### 5 8410-2 #### [facility] CLIA [id number] [address] MCV (RBC) [Entitic vol] 98.8 fL Normal 80.0-100.0 [facility] Comment on above: Order Comment: Speci men Type: BLOOD SPECIMEN Ordering Facility: [facility] Address: [address] [place] [address] Performed By: #### 5 8410-2 #### [facility] CLIA [id number] [address] Nucleated RBC (Bld) [#/Vol] 10*3/uL Normal <0.01 [facility] Comment on above: Order Comment: Speci men Type: BLOOD SPECIMEN Ordering Facility: [facility] Address: [address] [place] [address] Performed By: #### 5 8410-2 #### [facility] CLIA [id number] [address] [place] [address] [place] Platelet mean volume (Bld) [Entitic vol] 9.7 fL Normal 9.0-12.7 [facility] Comment on above: Order Comment: Speci men Type: BLOOD SPECIMEN Ordering Facility: [facility] Address: [address] [place] [address] Performed By: #### 5 8410-2 #### [facility] CLIA [id number] [address] [place] Platelets (Bld) [#/Vol] 161 10*3/uL Normal 150-400 [facility] Comment on above: Order Comment: Speci men Type: BLOOD SPECIMEN Ordering Facility: [facility] Address: [address] [place] [address] Performed By: #### 5 8410-2 #### [facility] CLIA [id number] [address] RBC (Bld) [#/Vol] 2.58 10*6/uL Low 4.20-6.00 [facility] Comment on above: Order Comment: Speci men Type: BLOOD SPECIMEN Ordering Facility: [facility] Address: [address] [place] [address] Performed By: #### 5 8410-2 #### [facility] CLIA [id number] [address] WBC (Bld) [#/Vol] 5.19 10*3/uL Normal 3.70-11.00 [facility] Comment on above: Order Comment: Speci men Type: BLOOD SPECIMEN Ordering Facility: [facility] Address: [address] [place] [address] Performed By: #### 5 8410-2 #### [facility] CLIA [id number] [address] CONSULT PROGon 01-07-2023 CONSULT PROG HNO ID: [id number] Author: Carly Sinclair MD Service: Hospital Medicine Author Type: Physician Type: Consult Progress Note Filed: 01/07/2023 12:36 PM Note Text: DEPARTMENT OF HOSPITAL MEDICINE PROGRESS NOTE SERVICE DATE: 01/07/2023 [facility] Medicine/Primary Attending: Carly Ramirez MD NIGHT AND WEEKEND COVERAGE: After 7pm please page [phone] SUBJECTIVE: resting in bed , no complaints [...] not on file) Coronary artery disease involving [place] coronary artery of [place] heart (POA: Status not on file) S/P [...] from home with mechanical fall transferred from [facility]. He does have a wound on his [...] (more content not included)... Normal [facility] CONSULT PROG HNO ID: [id number] Author: Priscilla Morgan APRN.[employer] Service: Wound/Ostomy Author Type: Nurse Practitioner Type: Consult Progress Note Filed: 01/07/2023 1:20 PM Note Text: WOUND CARE SERVICE PROGRESS CORN PICKER NOTE SERVICE DATE: 01/07/2023 SERVICE TIME: 10:00 [...] who is seen today with Kathi Hernandez, Wound/info specialist, to apply NPWT wound vac to left [...] 01/07/2023 10:07 AM Wound Image Site Assessment Red;[place];Black Adelina-Wound Assessment Edema;[place] Shape irregular Wound Length (cm) 7.1 cm [...] Status Authorizing Provider 01/07/23 1304 WOUND VAC ([place], [place]) Routine Active Priscilla Morgan APRN.[employer] - Site:: Left foot - Target Pressure [...] Authorizing Provider 01/03/23 1542 DRESSING CARE (SPECIFY) ([place]) Routine Active Perez, Bing E, MD - Specify:: xeroform to skin tears left elbow (more content not included)... Normal [facility] THERAPY NTon 01-07-2023 THERAPY NT HNO ID: [id number] Author: Samantha Hoffmann PT Service: Physical Therapy Author Type: Physical Therapist Type: Therapy (PT/OT/Speech/Resp) Filed: 01/07/2023 11:03 AM Note Text: Physical Therapy Treatment SERVICE DATE: 01/07/2023 SERVICE TIME: 1030 to 1054 ROOM: [place] [address] Recommended Discharge Disposition: Subacute/SNF Recommended Discharge Disposition [...] (more content not included)... Normal [facility] Basic metabolic 2000 panelon 01-06-2023 Anion gap [Moles/Vol] 9 mmol/L Normal 9-18 [facility] Comment on above: Order Comment: Speci men Type: BLOOD SPECIMEN Ordering Facility: [facility] Address: [address] [address] Performed By: #### 5 8410-2 #### [facility] CLIA [id number] 1 [place] [address] [place] Calcium [Mass/Vol] 8.5 mg/dL Normal 8.5-10.2 [facility] Comment on above: Order Comment: Speci men Type: BLOOD SPECIMEN Ordering Facility: [facility] Address: [address] [place] [address] Performed By: #### 5 8410-2 #### [facility] CLIA [id number] [address] [place] Chloride [Moles/Vol] 103 mmol/L Normal 97-105 [facility] Comment on above: Order Comment: Speci men Type: BLOOD SPECIMEN Ordering Facility: [facility] Address: [address] [place] [address] Performed By: #### 5 8410-2 #### [facility] CLIA [id number] [address] [place] CO2 [Moles/Vol] 22 mmol/L Normal 22-30 [facility] Comment on above: Order Comment: Speci men Type: BLOOD SPECIMEN Ordering Facility: [facility] Address: [address] [address] Performed By: #### 5 8410-2 #### [facility] CLIA [id number] [address] [place] Creatinine [Mass/Vol] 2.47 mg/dL High 0.73-1.22 [facility] Comment on above: Order Comment: Speci men Type: BLOOD SPECIMEN Ordering Facility: [facility] Address: [address] [place] [address] Performed By: #### 5 8410-2 #### [facility] CLIA [id number] 1 [place] [address] [place] ESTIMATED GLOMERULAR FILTRATION RATE 26 mL/min/1.73m??? Low >=60 [facility] Comment on above: Order Comment: Jamesheather barnard Type: BLOOD SPECIMEN Ordering Facility: [facility] Address: [address] [place] [address] Result Comment: Lindsay mated Glomerular Filtration Rate [...] By: #### 5 8410-2 #### [facility] CLIA [id number] 1 [place] [address] [place] Glucose [Mass/Vol] 117 mg/dL High 74-99 [facility] Comment on above: Order Comment: Specheather barnard Type: BLOOD SPECIMEN Ordering Facility: [facility] Address: [address] [place] [address] Result Comment: The [place] Diabetes Association (ADA) provides guidance for cutoff [...] Standards of Medical Care in Diabetes 2016, [place] [employer]. Diabetes Care. 2016.39(Suppl 1). Performed By: #### 5 8410-2 #### [facility] CLIA [id number] 1 [place] [address] [place] Potassium [Moles/Vol] 4.4 mmol/L Normal 3.7-5.1 [facility] Comment on above: Order Comment: Speci men Type: BLOOD SPECIMEN Ordering Facility: [facility] Address: [address] [place] [address] Performed By: #### 5 8410-2 #### [facility] CLIA [id number] [address] STATES OF [facility] Sodium [Moles/Vol] 134 mmol/L Low 136-144 [facility] Comment on above: Order Comment: Speci men Type: BLOOD SPECIMEN Ordering Facility: [facility] Address: [address] [place] [address] Performed By: #### 5 8410-2 #### [facility] CLIA [id number] [address] STATES OF [facility] Urea nitrogen [Mass/Vol] 40 mg/dL High 9-24 [facility] Comment on above: Order Comment: Speci men Type: BLOOD SPECIMEN Ordering Facility: [facility] Address: [address] [place] [address] Performed By: #### 5 8410-2 #### [facility] CLIA [id number] [address] [place] [facility] CBC panel Auto (Bld)on 01-06 Erythrocyte distribution width (RBC) [Ratio] 15.3 % High 11.5-15.0 [facility] Comment on above: Order Comment: Speci men Type: BLOOD SPECIMEN Ordering Facility: [facility] Address: [address] [place] [address] Performed By: #### 5 8410-2 #### [facility] CLIA [id number] [address] Hematocrit (Bld) [Volume fraction] 25.5 % Low 39.0-51.0 [facility] Comment on above: Order Comment: Speci men Type: BLOOD SPECIMEN Ordering Facility: [facility] Address: [address] [place] [address] Performed By: #### 5 8410-2 #### [facility] CLIA [id number] [address] Hemoglobin (Bld) [Mass/Vol] 8.0 g/dL Low 13.0-17.0 [facility] Comment on above: Order Comment: Speci men Type: BLOOD SPECIMEN Ordering Facility: [facility] Address: [address] [place] [address] Performed By: #### 5 8410-2 #### [facility] CLIA [id number] [address] MCH (RBC) [Entitic mass] 31.5 pg Normal 26.0-34.0 [facility] Comment on above: Order Comment: Speci men Type: BLOOD SPECIMEN Ordering Facility: [facility] Address: [address] [place] [address] Performed By: #### 5 8410-2 #### [facility] CLIA [id number] [address] MCHC (RBC) [Mass/Vol] 31.4 g/dL Normal 30.5-36.0 [facility] Comment on above: Order Comment: Speci men Type: BLOOD SPECIMEN Ordering Facility: [facility] Address: [address] [place] [address] Performed By: #### 5 8410-2 #### [facility] CLIA [id number] [address] MCV (RBC) [Entitic vol] 100.4 fL High 80.0-100.0 [facility] Comment on above: Order Comment: Speci men Type: BLOOD SPECIMEN Ordering Facility: [facility] Address: [address] [place] [address] Performed By: #### 5 8410-2 #### [facility] CLIA [id number] [address] Nucleated RBC (Bld) [#/Vol] 10*3/uL Normal <0.01 [facility] Comment on above: Order Comment: Speci men Type: BLOOD SPECIMEN Ordering Facility: [facility] Address: [address] [place], [place] [id number] Performed By: #### 5 8410-2 #### [facility] CLIA [id number] [address] Platelet mean volume (Bld) [Entitic vol] 9.5 fL Normal 9.0-12.7 [facility] Comment on above: Order Comment: Speci men Type: BLOOD SPECIMEN Ordering Facility: [facility] Address: [address] [place] [address] Performed By: #### 5 8410-2 #### [facility] CLIA [id number] [address] Platelets (Bld) [#/Vol] 151 10*3/uL Normal 150-400 [facility] Comment on above: Order Comment: Speci men Type: BLOOD SPECIMEN Ordering Facility: [facility] Address: [address] [place] [address] Performed By: #### 5 8410-2 #### [facility] CLIA [id number] [address] RBC (Bld) [#/Vol] 2.54 10*6/uL Low 4.20-6.00 [facility] Comment on above: Order Comment: Speci men Type: BLOOD SPECIMEN Ordering Facility: [facility] Address: [address] [place] [address] Performed By: #### 5 8410-2 #### [facility] CLIA [id number] [address] [place] [facility] WBC (Bld) [#/Vol] 5.33 10*3/uL Normal 3.70-11.00 [facility] Comment on above: Order Comment: Speci men Type: BLOOD SPECIMEN Ordering Facility: [facility] Address: [address] [place] [address] Performed By: #### 5 8410-2 #### [facility] CLIA [id number] [address] Erythrocyte distribution width (RBC) [Ratio] 14.4 % Normal 11.5-15.0 [facility] Comment on above: Order Comment: Speci men Type: BLOOD SPECIMEN Ordering Facility: [facility] Address: [address] [place] [address] Performed By: #### 5 8410-2 #### [facility] CLIA [id number] [address] OF [facility] Hematocrit (Bld) [Volume fraction] 22.7 % Low 39.0-51.0 [facility] Comment on above: Order Comment: Speci men Type: BLOOD SPECIMEN Ordering Facility: [facility] Address: [address] [place] [address] Performed By: #### 5 8410-2 #### [facility] CLIA [id number] [address] [place] Hemoglobin (Bld) [Mass/Vol] 6.8 g/dL Low 13.0-17.0 [facility] Comment on above: Order Comment: Speci men Type: BLOOD SPECIMEN Ordering Facility: [facility] Address: [address] [place] [address] Performed By: #### 5 8410-2 #### [facility] CLIA [id number] [address] OF [facility] MCH (RBC) [Entitic mass] 30.9 pg Normal 26.0-34.0 [facility] Comment on above: Order Comment: Speci men Type: BLOOD SPECIMEN Ordering Facility: [facility] Address: [address] [place] [address] Performed By: #### 5 8410-2 #### [facility] CLIA [id number] [address] [place] MCHC (RBC) [Mass/Vol] 30.0 g/dL Low 30.5-36.0 [facility] Comment on above: Order Comment: Speci men Type: BLOOD SPECIMEN Ordering Facility: [facility] Address: [address] [place] [address] Performed By: #### 5 8410-2 #### [facility] CLIA [id number] [address] MCV (RBC) [Entitic vol] 103.2 fL High 80.0-100.0 [facility] Comment on above: Order Comment: Speci men Type: BLOOD SPECIMEN Ordering Facility: [facility] Address: [address] [place] [address] Performed By: #### 5 8410-2 #### [facility] CLIA [id number] [address] Nucleated RBC (Bld) [#/Vol] 10*3/uL Normal <0.01 [facility] Comment on above: Order Comment: Speci men Type: BLOOD SPECIMEN Ordering Facility: [facility] Address: [address] [place] [address] Performed By: #### 5 8410-2 #### [facility] CLIA [id number] [address] Platelet mean volume (Bld) [Entitic vol] 9.5 fL Normal 9.0-12.7 [facility] Comment on above: Order Comment: Speci men Type: BLOOD SPECIMEN Ordering Facility: [facility] Address: [address] [place] [address] Performed By: #### 5 8410-2 #### [facility] CLIA [id number] [address] Platelets (Bld) [#/Vol] 141 10*3/uL Low 150-400 [facility] Comment on above: Order Comment: Speci men Type: BLOOD SPECIMEN Ordering Facility: [facility] Address: [address] [place] [address] Performed By: #### 5 8410-2 #### [facility] CLIA [id number] [address] [place] RBC (Bld) [#/Vol] 2.20 10*6/uL Low 4.20-6.00 [facility] Comment on above: Order Comment: Speci men Type: BLOOD SPECIMEN Ordering Facility: [facility] Address: [address] [place] [address] Performed By: #### 5 8410-2 #### [facility] CLIA [id number] [address] WBC (Bld) [#/Vol] 5.70 10*3/uL Normal 3.70-11.00 [facility] Comment on above: Order Comment: Speci men Type: BLOOD SPECIMEN Ordering Facility: [facility] Address: [address] [place] [address] Performed By: #### 5 8410-2 #### [facility] CLIA [id number] [address] CONFIRM BLOOD TYPEon 023 ABO O Normal [facility] Comment on above: Order Comment: Speci men Type: BLOOD SPECIMEN Ordering Facility: [facility] Address: [address] [place] [address] Performed By: #### C ONABO #### [facility] CLIA [id number] [address] Rh Nom (Bld) Positive Normal [facility] Comment on above: Order Comment: Speci men Type: BLOOD SPECIMEN Ordering Facility: [facility] Address: [address] [place] [address] Performed By: #### C ONABO #### [facility] CLIA [id number] [address] [place] [address] CONSULTon 01-06-2023 CONSULT HNO ID: [id number] Author: Michael Nick DPM Service: Podiatry Author [...] (more content not included)... Normal [facility] CONSULT PROGon 01-06-2023 CONSULT PROG HNO ID: [id number] Author: Carly Sinclair MD Service: Hospital Medicine Author Type: Physician Type: Consult Progress Note Filed: 01/06/2023 1:21 PM Note Text: DEPARTMENT OF HOSPITAL MEDICINE PROGRESS NOTE SERVICE DATE: 01/06/2023 Hospital Medicine/Primary Attending: Carly Ramirez MD NIGHT AND WEEKEND COVERAGE: After 7pm please page [phone] SUBJECTIVE: resting in bed , no complaints [...] not on file) Coronary artery disease involving [place] coronary artery of [place] heart (POA: Status not on file) S/P [...] PAGER/CONTACT #: rosanna team jesica Normal [facility] THERAPY NTon 01-06-2023 THERAPY NT HNO ID: [id number] Author: Dov Newton PTA Service: Physical Therapy Author Type: Web Ui Developer Type: Therapy (PT/OT/Speech/Resp) Filed: 01/06/2023 2:49 PM Note Text: Attestation signed by Samantha Hoffmann PT at 01/06/2023 3:37 PM I reviewed and agree with the documentation corresponding to this therapy visit. SIGNATURE: Samantha Hoffmann PT DATE: January 06, 2023 TIME: 3:37 PM Physical Therapy Treatment SERVICE DATE: 01/06/2023 SERVICE TIME: 1351 to 1410 ROOM: [id number] Recommended Discharge Disposition: Subacute/SNF Recommended Discharge Disposition [...] (more content not included)... Normal [facility] TYPE + SCREENon 01-06-2023 ABO O Normal [facility] Comment on above: Order Comment: Speci men Type: BLOOD SPECIMEN Ordering Facility: [facility] Address: [address] [place] [phone] Performed By: #### T SCR #### [facility] CLIA [id number] [address] HISTORICAL AB SCR STATUS Negative Normal [facility] Comment on above: Order Comment: Speci men Type: BLOOD SPECIMEN Ordering Facility: [facility] Address: [address] [place] [address] Performed By: #### T SCR #### [facility] CLIA [id number] [address] Rh Nom (Bld) Positive Normal [facility] Comment on above: Order Comment: Speci men Type: BLOOD SPECIMEN Ordering Facility: [facility] Address: [address] [place] [address] Performed By: #### T SCR #### [facility] CLIA [id number] [address] TYPE AND SCREEN EXPIRATION 01/09/2023 23:59 Normal [facility] Comment on above: Order Comment: Speci men Type: BLOOD SPECIMEN Ordering Facility: [facility] Address: [address] [place] [address] Performed By: #### T SCR #### [facility] CLIA [id number] [address] ANES POSTPROC EVALon 01-05- 023 ANES POSTPROC EVAL HNO ID: [id number] Author: Bert Bellamy MD Service: Anesthesiology Author Type: Physician Type: Anesthesia Postprocedure Evaluation Filed: 01/05/2023 9:07 AM Note Text: POST ANESTHESIA EVALUATION NOTE : 1940 Procedure Summary Date: 01/04/23 Room / Location: [place] / [place] Anesthesia Start: 1446 Anesthesia Stop: 162 [...] January 05, 2023 TIME: 9:07 AM CSN: [id number] Normal [facility] Basic metabolic 2000 panelon 01-05-2023 Anion gap [Moles/Vol] 10 mmol/L Normal 9-18 [facility] Comment on above: Order Comment: Speci akil Type: BLOOD SPECIMEN Ordering Facility: [facility] Address: [address] [place] [address] Performed By: #### 5 8410-2 #### [facility] CLIA [id number] 1 [place] [address] [place] Calcium [Mass/Vol] 8.5 mg/dL Normal 8.5-10.2 [facility] Comment on above: Order Comment: Jamesi akil Type: BLOOD SPECIMEN Ordering Facility: [facility] Address: [address] [place] [address] Performed By: #### 5 8410-2 #### [facility] CLIA [id number] [address] [place] [address] [place] Chloride [Moles/Vol] 101 mmol/L Normal 97-105 [facility] Comment on above: Order Comment: Speci men Type: BLOOD SPECIMEN Ordering Facility: [facility] Address: [address] [place] [address] Performed By: #### 5 8410-2 #### [facility] CLIA [id number] [address] OF [facility] CO2 [Moles/Vol] 21 mmol/L Low 22-30 [facility] Comment on above: Order Comment: Speci men Type: BLOOD SPECIMEN Ordering Facility: [facility] Address: [address] [place] [address] Performed By: #### 5 8410-2 #### [facility] CLIA [id number] [address] Creatinine [Mass/Vol] 2.27 mg/dL High 0.73-1.22 [facility] Comment on above: Order Comment: Speci men Type: BLOOD SPECIMEN Ordering Facility: [facility] Address: [address] [place] [address] Performed By: #### 5 8410-2 #### [facility] CLIA [id number] [address] [place] [address] ESTIMATED GLOMERULAR FILTRATION RATE 28 mL/min/1.73m??? Low >=60 [facility] Comment on above: Order Comment: Speci men Type: BLOOD SPECIMEN Ordering Facility: [facility] Address: [address] [place] [address] Result Comment: Lindsay mated Glomerular Filtration Rate [...] GFR. Performed By: #### 5 8410-2 #### [facility] CLIA [id number] [address] [place] Glucose [Mass/Vol] 101 mg/dL High 74-99 [facility] Comment on above: Order Comment: Migel barnard Type: BLOOD SPECIMEN Ordering Facility: [facility] Address: [address] [place] [address] Result Comment: The [place] Diabetes Association (ADA) provides guidance for cutoff [...] Standards of Medical Care in Diabetes 2016, [place] [employer]. Diabetes Care. 2016.39(Suppl 1). Performed By: #### 5 8410-2 #### [facility] CLIA [id number] 1 [place] [address] [place] Potassium [Moles/Vol] 5.3 mmol/L High 3.7-5.1 [facility] Comment on above: Order Comment: Migel barnard Type: BLOOD SPECIMEN Ordering Facility: [facility] Address: [address] [place] [address] Performed By: #### 5 8410-2 #### [facility] CLIA [id number] 1 [place] [address] [place] Sodium [Moles/Vol] 132 mmol/L Low 136-144 [facility] Comment on above: Order Comment: Migel barnard Type: BLOOD SPECIMEN Ordering Facility: [facility] Address: [address] [place] [address] Performed By: #### 5 8410-2 #### [facility] CLIA [id number] 1 [place] [address] [place] Urea nitrogen [Mass/Vol] 40 mg/dL High 9-24 [facility] Comment on above: Order Comment: Migel barnard Type: BLOOD SPECIMEN Ordering Facility: [facility] Address: [address] [address] Performed By: #### 5 8410-2 #### [facility] CLIA [id number] [address] CBC panel Auto (Bld)on 01-05 Erythrocyte distribution width (RBC) [Ratio] 14.5 % Normal 11.5-15.0 [facility] Comment on above: Order Comment: Speci men Type: BLOOD SPECIMEN Ordering Facility: [facility] Address: [address] [address] Performed By: #### 5 8410-2 #### [facility] CLIA [id number] [address] Hematocrit (Bld) [Volume fraction] 24.0 % Low 39.0-51.0 [facility] Comment on above: Order Comment: Speci men Type: BLOOD SPECIMEN Ordering Facility: [facility] Address: [address] [place] [address] Performed By: #### 5 8410-2 #### [facility] CLIA [id number] [address] Hemoglobin (Bld) [Mass/Vol] 7.5 g/dL Low 13.0-17.0 [facility] Comment on above: Order Comment: Speci men Type: BLOOD SPECIMEN Ordering Facility: [facility] Address: [address] [place] [address] Performed By: #### 5 8410-2 #### [facility] CLIA [id number] [address] MCH (RBC) [Entitic mass] 31.8 pg Normal 26.0-34.0 [facility] Comment on above: Order Comment: Speci men Type: BLOOD SPECIMEN Ordering Facility: [facility] Address: [address] [place] [address] Performed By: #### 5 8410-2 #### [facility] CLIA [id number] [address] [place] [address] [place] MCHC (RBC) [Mass/Vol] 31.3 g/dL Normal 30.5-36.0 [facility] Comment on above: Order Comment: Speci men Type: BLOOD SPECIMEN Ordering Facility: [facility] Address: [address] [address] Performed By: #### 5 8410-2 #### [facility] CLIA [id number] [address] OF [facility] MCV (RBC) [Entitic vol] 101.7 fL High 80.0-100.0 [facility] Comment on above: Order Comment: Speci men Type: BLOOD SPECIMEN Ordering Facility: [facility] Address: [address] [address] Performed By: #### 5 8410-2 #### [facility] CLIA [id number] [address] Nucleated RBC (Bld) [#/Vol] 10*3/uL Normal <0.01 [facility] Comment on above: Order Comment: Speci men Type: BLOOD SPECIMEN Ordering Facility: [facility] Address: [address] [address] Performed By: #### 5 8410-2 #### [facility] CLIA [id number] [address] [place] Platelet mean volume (Bld) [Entitic vol] 10.0 fL Normal 9.0-12.7 [facility] Comment on above: Order Comment: Speci men Type: BLOOD SPECIMEN Ordering Facility: [facility] Address: [address] [address] Performed By: #### 5 8410-2 #### [facility] CLIA [id number] [address] OF [place] Platelets (Bld) [#/Vol] 181 10*3/uL Normal 150-400 [facility] Comment on above: Order Comment: Speci men Type: BLOOD SPECIMEN Ordering Facility: [facility] Address: [address] [address] Performed By: #### 5 8410-2 #### [facility] CLIA [id number] [address] RBC (Bld) [#/Vol] 2.36 10*6/uL Low 4.20-6.00 [facility] Comment on above: Order Comment: Speci men Type: BLOOD SPECIMEN Ordering Facility: [facility] Address: [address] [place] [address] Performed By: #### 5 8410-2 #### [facility] CLIA [id number] [address] WBC (Bld) [#/Vol] 8.02 10*3/uL Normal 3.70-11.00 [facility] Comment on above: Order Comment: Speci men Type: BLOOD SPECIMEN Ordering Facility: [facility] Address: [address] [place] [address] Performed By: #### 5 8410-2 #### [facility] CLIA [id number] [address] CONSULT PROGon 01-05-2023 CONSULT PROG HNO ID: [id number] Author: Carly Sinclair MD Service: Hospital Medicine Author Type: Physician Type: Consult Progress Note Filed: 01/05/2023 2:52 PM Note Text: DEPARTMENT OF HOSPITAL MEDICINE PROGRESS NOTE SERVICE DATE: 01/05/2023 Hospital Medicine/Primary Attending: Carly Ramirez MD NIGHT AND WEEKEND COVERAGE: After 7pm please page [phone] SUBJECTIVE: resting in bed , no complaints [...] not on file) Coronary artery disease involving [place] coronary artery of [place] heart (POA: Status not on file) S/P [...] #: sound team color Normal [facility] MRI BRAIN WO/W IVCONon 01-05 MRI BRAIN [...] suggest the latter within the medical record. Regional Transfer Liaison: ANABEL Transcribe Date/Time: Jan 05 2023 8:48P Dictated by : CHARO LACEY MD This examination was interpreted and the report reviewed and electronically signed by: CHARO LACEY MD on Jan 05 2023 9:04PM EST [id number] Normal [facility] NUTRITIONon 01-05-2023 NUTRITION HNO ID: [id number] Author: Grazyna Ray RD Service: Nutrition Therapy [...] evidenced by: Patient/family self-report Estimated kilocalorie needs: 7159-0906 Calorie Calculation Method: 25-30 kcals/kg Estimated protein [...] 2023 TIME: 12:42 PM Normal [facility] THERAPY NTon 01-05-2023 THERAPY NT HNO ID: [id number] Author: Kimberly Corey OTR/Gunner Service: Occupational Therapy Author Type: Occupational Therapist Type: Therapy (PT/OT/Speech/Resp) Filed: 01/05/2023 1:41 PM Note Text: Occupational Therapy Evaluation SERVICE DATE: 01/05/2023 SERVICE TIME: 1030 to 1058 ROOM: [place] [address] Recommended Discharge Disposition: Subacute/SNF Recommended Discharge Disposition [...] into AL 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 Normal [facility] THERAPY NT HNO ID: [id number] Author: Hannah Fortune, PT Service: Physical Therapy Author Type: Physical Therapist Type: Therapy (PT/OT/Speech/Resp) Filed: 01/05/2023 1:02 PM Note Text: Physical Therapy Evaluation SERVICE DATE: 01/05/2023 SERVICE TIME: 1012 to 1035 ROOM: [place] [address] Recommended Discharge Disposition: Subacute/SNF Recommended Discharge Disposition [...] Walker Gait Distance (feet): 3' x 1 [id number] cues for walker safety, step-to pattern to [...] (more content not included)... Normal [facility] 25(OH)D3 SerPl-ncon 2022 25-hydroxyvitamin D3 [Mass/Vol] 13.8 ng/mL Low >=30.0 [facility] Comment on above: Order Comment: Speci men Type: BLOOD SPECIMEN Ordering Facility: [facility] Address: [address] [place] [id number] Result Comment: Clas sification of 25 OH Vitamin D status: Deficiency: <= 20.0 ng/ml. Insufficiency: 21.0-29.0 ng/ml. Sufficiency: >= 30.0 ng/ml. Performed By: #### 5 8410-2 #### [facility] CLIA [id number] [address] [place] [address] STATES OF [facility] ANES PRE-OPon 01-04-2023 ANES PRE-OP HNO ID: [id number] Author: Bert Bellamy MD Service: Anesthesiology Author Type: Physician Type: Anesthesia Preprocedure Evaluation Filed: 01/04/2023 2:21 PM Note Text: ANESTHESIOLOGY DAY OF SURGERY NOTE : 1940 Procedure Information Date/Time: 01/04/23 1338 Procedure: INSERTION NAIL / JESSY INTERMEDULLARY FEMUR WITH C-ARM (Left: Hip) Location: [place] OR / [place] Surgeons: Errol Rod MD Estimated body mass index is 22.24 kg/m? as calculated from the following: Height as of this encounter: 177.8 cm (5' 10). Weight as of this encounter: 70.3 kg (154 lb 15.7 oz). Most recent hematocrit and potassium results: Hematocrit 31.0 01/03/2023 Potassium 5.3 01/03/2023 Relevant Problems CARDIO (+) Atrial fibrillation (HCC) (+) Coronary artery disease involving [place] coronary artery of [place] heart (+) Primary hypertension (+) S/P CABG [...] 04, 2023 MRN (more content not included)... [facility] BRIEF OP NOTon 01-04-2023 BRIEF OP NOT HNO ID: [id number] Author: Errol Rod MD Service: Orthopaedic Surgery Author Type: Physician Type: Brief Op Note Filed: 01/04/2023 3:55 PM Note Text: BRIEF OPERATIVE / PROCEDURE NOTE TOTAL HIP ARTHROPLASTY LOG ID: [id number] Surgery/Procedure Date: 01/04/2023 Incision/Procedure Start Time: 3:21 PM Incision Close/Procedure End Time: Surgeon(s)/Proceduralist(s) and Urban Sociologist(s): Surgeon(s) and Role: * Errol Rod MD [...] DATE: January 04, 2023 TIME: 3:54 PM [facility] CONSULTon 01-04-2023 CONSULT HNO ID: [id number] Author: João Sales MD Service: Clinical Cardiology [...] fibrillation. He was admitted to [facility] with a ground-level fall when he was trying to turn using his walker. He is a assisted resident. He normally sees Dr. Borges for his cardiac care at [place]. Apparently, he was on oral anticoagulation for [...] angiography on 10/06/[address] Mosqueda at [facility] revealed patent ZARAGOZA to the LAD, [...] (more content not included)... Normal [facility] CONSULT PROGon 01-04-2023 CONSULT PROG HNO ID: [id number] Author: Carly Sinclair MD Service: Hospital Medicine Author Type: Physician Type: Consult Progress Note Filed: 01/04/2023 3:03 PM Note Text: DEPARTMENT OF HOSPITAL MEDICINE PROGRESS NOTE SERVICE DATE: 01/04/2023 SERVICE TIME: 2:56 PM Hospital Medicine/Primary Attending: Carly Ramirez MD NIGHT AND WEEKEND COVERAGE: After 7pm please page [phone] SUBJECTIVE: resting in bed , no complaints [...] not on file) Coronary artery disease involving [place] coronary artery of [place] heart (POA: Status not on file) S/P [...] #: rosanna team color Normal [facility] ECG COMPLETEon 01-04-2023 ECG COMPLETE Ventricular Rate : 6 4 BPM Atrial Rate : 64 BPM P-R Interval : 208 ms QRS Duration : 128 ms Q-T Interval : 460 ms QTC Calculation(Bazett) : 474 ms Calculated P [place] : -7 degrees Calculated R [place] : -43 degrees Calculated T [place] : 60 degrees NORMAL SINUS RHYTHM LEFT AXIS DEVIATION INCOMPLETE RIGHT BUNDLE BRANCH BLOCK MINIMAL VOLTAGE CRITERIA FOR LVH, MAY BE NORMAL VARIANT ( [place] product ) CANNOT RULE OUT SEPTAL INFARCT , AGE UNDETERMINED INFERIOR INFARCT (CITED ON OR BEFORE 03-JAN-2023) ABNORMAL ECG WHEN COMPARED WITH ECG OF 03-JAN-2023 18:17, PA INTERVAL HAS DECREASED MINIMAL CRITERIA FOR SEPTAL INFARCT ARE NOW PRESENT Confirmed by MD SALES VINAYAK ([id number]) on 01/06/2023 3:19:36 PM NAME : AMAURY BLANK PID : [id number] : 1940 Gender : Male Race : ORD : [id number] Procedure Date : Jan 04 2023 06:32:58 Edit Date : Jan 06 2023 15:19:37 Diagnosis: NORMAL SINUS RHYTHM LEFT AXIS DEVIATION INCOMPLETE RIGHT BUNDLE BRANCH BLOCK MINIMAL VOLTAGE CRITERIA FOR LVH, MAY BE NORMAL VARIANT ( Christos product ) CANNOT RULE OUT SEPTAL INFARCT , AGE UNDETERMINED INFERIOR INFARCT (CITED ON OR BEFORE 03-JAN-2023) ABNORMAL ECG WHEN COMPARED WITH ECG OF 03-JAN-2023 18:17, PA INTERVAL HAS DECREASED MINIMAL CRITERIA FOR SEPTAL INFARCT ARE NOW PRESENT Confirmed by MD SALES VINAYAK ([id number]) on 01/06/2023 3:19:36 PM Test Reason : Pre-OP Location : 152 : [id number] Overread By : MD SALES VINAYAK Edited By : MD SALES VINAYAK Referred By : , Acquired by : KASI LEMA [facility] ED NOTEon 01-04-2023 ED NOTE HNO ID: [id number] Author: Comfort Dias RN Service: ? Author Type: Registered Nurse Type: ED Notes Filed: 01/04/2023 12:05 AM Note Text: Up with [facility] ED NOTE HNO ID: [id number] Author: Comfort Dias RN Service: ? Author Type: Registered Nurse Type: ED Notes Filed: 01/04/2023 12:04 AM Note Text: Up with Génesis [facility] ED NOTE HNO ID: [id number] Author: Comfort Dias RN Service: ? Author Type: Registered Nurse Type: ED Notes Filed: 01/04/2023 12:02 AM Note Text: Up with [facility] OPERATIVE NOon 01-04-2023 OPERATIVE NO HNO ID: [id number] Author: Errol Rod MD Service: Orthopaedic Surgery Author Type: Physician Type: Operative Report Filed: 01/05/2023 5:52 PM Note Text: OPERATIVE/PROCEDURE REPORT LOG ID: [id number] SURGERY/PROCEDURE DATE: 01/04/2023 INCISION/PROCEDURE START TIME: 3:21 PM INCISION CLOSE/PROCEDURE END TIME: 4:12 PM SURGEON(S)/PROCEDURALIST(S) AND HOSPICE COMMUNITY LIAISON(S): Surgeon(s) and Role: * Errol Rod MD - Primary * Chris Franco MD - Resident - Assisting * Ricky Quintana MD - Resident - Assisting No Additional Staff SURGERY/PROCEDURE(S): 1) Insertion of left Hip Intramedullary Femoral Nail ANESTHESIA: 1) Choice - Anesthesia Consult ANTIBIOTICS: 1) Vancomycin 1 g SURGERY/PROCEDURE DETAILS: 82 year old male presented to [facility] on 01/03/2023 for evaluation after a left [...] time-out was then performed in accordance with [facility] policy. The patient was then pre-cleansed with [...] Implant Name Type Inv. Item Serial No. Counter Waitress/Waiter Lot No. LRB No. Used Action NAIL TFN-ADVANCED 10MM 130D SHORT GOLD GREEN IVERSON TI-15MO 170MM - [id number] Nail NAIL TFN-ADVANCED 10MM 130D SHORT GOLD GREEN IVERSON TI-15MO 170MM SYNTHES TRAUMA [id number] Left 1 Implanted SCREW TFN-ADVANCED 10.35MM 3.5MM IVERSON [id number] 90MM BONE CANNULATED - [id number] Screw SCREW TFN-ADVANCED 10.35MM 3.5MM IVERSON [id number] 90MM BONE CANNULATED SYNTHES TRAUMA Left 1 Implanted SCREW 5MM 4.3MM T25 FULL THREAD TITANIUM 34MM BONE LOCK SELF TAP BLUNT TIP - [id number] Screw SCREW 5MM 4.3MM T25 FULL THREAD TITANIUM 34MM BONE LOCK SELF TAP BLUNT TIP SYNTHES [facility] SYNTHES [facility] Left 1 Implanted DRAINS: None COMPLICATIONS: None POST-OPERATIVE PLAN: -Management per primary -Pain control -DVT prophylaxis: Per primary -Diet: Per primary -Dressings: Mepilex dressings for 7 to 10 days -Antibiotics: Vancomycin 1 g x 1 dose -Ice left hip (more content not included)... Normal [facility] THERAPY NTon 01-04-2023 THERAPY NT HNO ID: [id number] Author: Tremayne Mckeon PT Service: Physical Therapy Author Type: Physical Therapist Type: Therapy (PT/OT/Speech/Resp) Filed: 01/04/2023 12:28 PM Note Text: PHYSICAL THERAPY MISSED VISIT SERVICE DATE: 01/04/2023 SERVICE TIME: 1227 to 1227 ROOM: [place] [address] Patient not seen due to Test / Procedure (OR today). Will evaluate when able/appropriate. SIGNATURE: Tremayne Mckeon PT PATIENT NAME: Amaury Blank DATE: January 04, 2023 TIME: 12:28 PM Normal [facility] THERAPY NT HNO ID: [id number] Author: ROSALIO Alvarez/Gunner Service: Occupational Therapy Author Type: Occupational Therapist Type: Therapy (PT/OT/Speech/Resp) Filed: 01/04/2023 8:09 AM Note Text: OCCUPATIONAL THERAPY MISSED VISIT SERVICE DATE: 01/04/2023 SERVICE TIME: 0809 to 0809 ROOM: [place] [address] Patient not seen due to Test / Procedure (OR today). SIGNATURE: ROSALIO Alvarez/Gunner PATIENT NAME: Amaury Blank DATE: January 04, 2023 TIME: 8:09 AM Normal [facility] XR HIP 2V AP/ LAT LTon 01-04 XR HIP 2V AP/ LAT LT * * *Final Report* * * DATE OF EXAM: Jan 04 2023 4:16PM [facility] 5279 - XR HIP 2V AP/ LAT [...] a femoral neck fracture. IMPRESSION: Intraoperative exam. Regional Transfer Liaison: [facility] Transcribe Date/Time: Jan 06 2023 7:45A Dictated by : JUWAN NARANJO MD This examination was interpreted and the report reviewed and electronically signed by: JUWAN NARANJO MD on Jan 06 2023 7:46AM EST [id number] Normal [facility] XR PELVIS 1V APon 01-04-2023 XR PELVIS [...] other significant abnormality. IMPRESSION: Unremarkable postoperative appearance Regional Transfer Liaison: [facility] Transcribe Date/Time: Jan 04 2023 6:58P Dictated by : FABIÁN CALVO MD This examination was interpreted and the report reviewed and electronically signed by: FABIÁN CALVO MD on Jan 04 2023 7:00PM EST [id number] Normal [facility] ALLIED HEALTHon 01-03-2023 ALLIED HEALTH HNO ID: [id number] Author: RT Jamey(R) Service: Radiology Author Type: [...] 03, 2023 1:14 PM Normal [facility] Absolute lymphocyte countOrd ered By: Lupe Joe on 01-03-2023 Lymphocytes Auto (Unsp spec) [#/Vol] 0.79 10*3/uL 0.83-4.51 [facility] Basic metabolic 2000 panelon 01-03-2023 Anion gap [Moles/Vol] 11 mmol/L Normal 9-18 [facility] Comment on above: Order Comment: Speci men Type: BLOOD SPECIMENOrdering Facility: [facility] Address: [address] [place] [address] Performed By: #### 2 4321-2 ####[facility] [id number] [place] [address] [place] Calcium [Mass/Vol] 9.3 mg/dL Normal 8.5-10.2 [facility] Comment on above: Order Comment: Speci men Type: BLOOD SPECIMENOrdering Facility: [facility] Address: [address] [place] [address] Performed By: #### 2 4321-2 ####[facility] [id number] [place] [address] [place] Chloride [Moles/Vol] 101 mmol/L Normal 97-105 [facility] Comment on above: Order Comment: Speci men Type: BLOOD SPECIMENOrdering Facility: [facility] Address: [address] [place] [address] Performed By: #### 2 4321-2 ####[facility] [id number] [place] [address] [place] CO2 [Moles/Vol] 23 mmol/L Normal 22-30 [facility] Comment on above: Order Comment: Speci men Type: BLOOD SPECIMENOrdering Facility: [facility] Address: [address] [place] [address] Performed By: #### 2 4321-2 ####[facility] [id number] [address] [place] Creatinine [Mass/Vol] 2.19 mg/dL High 0.73-1.22 [facility] Comment on above: Order Comment: Migel barnard Type: BLOOD SPECIMENOrdering Facility: [facility] Address: [address] [place] [address] Performed By: #### 2 4321-2 ####[facility] [id number] [address] ESTIMATED GLOMERULAR FILTRATION RATE 30 mL/min/1.73m??? Low >=60 [facility] Comment on above: Order Comment: Migel akil Type: BLOOD SPECIMENOrdering Facility: [facility] Address: [address] [place] [address] Result Comment: Lindsay mated Glomerular Filtration Rate [...] actual GFR. Performed By: #### 2 4321-2 ####[facility] [id number] [address] Glucose [Mass/Vol] 83 mg/dL Normal 74-99 [facility] Comment on above: Order Comment: Migel akil Type: BLOOD SPECIMENOrdering Facility: [facility] Address: [address] [place] [address] Result Comment: The [place] Diabetes Association (ADA) provides guidance for cutoff [...] Standards of Medical Care in Diabetes 2016, [place] Diabetes Association. Diabetes Care. 2016.39(Suppl 1). Performed By: #### 2 4321-2 ####[facility] [id number] [address] [place] Potassium [Moles/Vol] 5.3 mmol/L High 3.7-5.1 [facility] Comment on above: Order Comment: Speci men Type: BLOOD SPECIMENOrdering Facility: [facility] Address: [address] [place] [address] Performed By: #### 2 4321-2 ####[facility] [id number] [address] STATES OF [facility] Sodium [Moles/Vol] 135 mmol/L Low 136-144 [facility] Comment on above: Order Comment: Speci men Type: BLOOD SPECIMENOrdering Facility: [facility] Address: [address] [place] [address] Performed By: #### 2 4321-2 ####[facility] [id number] [address] [place] Urea nitrogen [Mass/Vol] 38 mg/dL High 9-24 [facility] Comment on above: Order Comment: Speci men Type: BLOOD SPECIMENOrdering Facility: [facility] Address: [address] [place] [address] Performed By: #### 2 4321-2 ####[facility] [id number] [place] [address] [place] Basophil percentageOrdered B y: Remus Ungur on 01-03-2023 Basophil percentage 99 mg/dL 74-106 [facility] Basophil percentage 139 mmol/L 136-145 [facility] Basophil percentage 5.0 mmol/L 3.5-5.1 [facility] Basophil percentage 107 mmol/L 98-107 [facility] Basophils (Bld) [#/Vol] 5.9 10*3/uL 4.4-11.0 [facility] Basophils (Bld) [#/Vol] 4.3 10*3/uL 2.0-7.7 [facility] Basophils/100 WBC (Bld) 72.5 % 47-70 [facility] Basophils/100 WBC (Bld) 2.9 % 0-5 [facility] Basophils/100 WBC (Bld) 0.7 % 0-1 [facility] Blood erythrocytes count (nu mber/volume)Ordered By: Lupe Joe on 01-03-2023 RBC (Bld) [#/Vol] 2.96 10*6/uL 4.6-6.2 [facility] Blood hemoglobin measurement (mass/volume)Ordered By: Lupe Joe on 01-03-2023 Hemoglobin (Bld) [Mass/Vol] 9.5 g/dL 13.0-16.5 [facility] Blood lymphocytes/100 leukoc ytesOrdered By: Lupe Joe on 01-03-2023 Lymphocytes/100 WBC (Bld) 13.5 % 19-41 [facility] Blood monocytes/100 leukocyt esOrdered By: Lupe Joe on 01-03-2023 Monocytes/100 WBC (Bld) 9.7 % 0-10 [facility] Blood platelet mean volumeOr dered By: Lupe Joe on 01-03-2023 Platelet mean volume (Bld) [Entitic vol] 9.4 fL 6.2-12.0 [facility] CBC panel Auto (Bld)on 01-03 Erythrocyte distribution width (RBC) [Ratio] 14.5 % Normal 11.5-15.0 [facility] Comment on above: Order Comment: Migel barnard Type: BLOOD SPECIMEN Ordering Facility: [facility] Address: [address] [place] [address] Performed By: #### 5 8410-2 #### [facility] CLIA [id number] [address] [place] [address] [place] Hematocrit (Bld) [Volume fraction] 31.0 % Low 39.0-51.0 [facility] Comment on above: Order Comment: Migel barnard Type: BLOOD SPECIMEN Ordering Facility: [facility] Address: [address] [place] [address] Performed By: #### 5 8410-2 #### [facility] CLIA [id number] [address] Hemoglobin (Bld) [Mass/Vol] 9.9 g/dL Low 13.0-17.0 [facility] Comment on above: Order Comment: Speci men Type: BLOOD SPECIMEN Ordering Facility: [facility] Address: [address] [place] [address] Performed By: #### 5 8410-2 #### [facility] CLIA [id number] [address] MCH (RBC) [Entitic mass] 33.1 pg Normal 26.0-34.0 [facility] Comment on above: Order Comment: Speci men Type: BLOOD SPECIMEN Ordering Facility: [facility] Address: [address] [place] [address] Performed By: #### 5 8410-2 #### [facility] CLIA [id number] [address] MCHC (RBC) [Mass/Vol] 31.9 g/dL Normal 30.5-36.0 [facility] Comment on above: Order Comment: Speci men Type: BLOOD SPECIMEN Ordering Facility: [facility] Address: [address] [place] [address] Performed By: #### 5 8410-2 #### [facility] CLIA [id number] [address] MCV (RBC) [Entitic vol] 103.7 fL High 80.0-100.0 [facility] Comment on above: Order Comment: Speci men Type: BLOOD SPECIMEN Ordering Facility: [facility] Address: [address] [place] [address] Performed By: #### 5 8410-2 #### [facility] CLIA [id number] [address] Nucleated RBC (Bld) [#/Vol] 10*3/uL Normal <0.01 [facility] Comment on above: Order Comment: Speci men Type: BLOOD SPECIMEN Ordering Facility[facility] Address: [address] [place] [address] Performed By: #### 5 8410-2 #### [facility] CLIA [id number] [address] [place] Platelet mean volume (Bld) [Entitic vol] 10.5 fL Normal 9.0-12.7 [facility] Comment on above: Order Comment: Speci men Type: BLOOD SPECIMEN Ordering Facility: [facility] Address: [address] [place] [address] Performed By: #### 5 8410-2 #### [facility] CLIA [id number] [address] [place] Platelets (Bld) [#/Vol] 260 10*3/uL Normal 150-400 [facility] Comment on above: Order Comment: Speci men Type: BLOOD SPECIMEN Ordering Facility[facility] Address: [address] [place] [address] Performed By: #### 5 8410-2 #### [facility] CLIA [id number] [address] [place] RBC (Bld) [#/Vol] 2.99 10*6/uL Low 4.20-6.00 [facility] Comment on above: Order Comment: Speci men Type: BLOOD SPECIMEN Ordering Facility[facility] Address: [address] [place] [address] Performed By: #### 5 8410-2 #### [facility] CLIA [id number] [address] [place] WBC (Bld) [#/Vol] 8.44 10*3/uL Normal 3.70-11.00 [facility] Comment on above: Order Comment: Speci men Type: BLOOD SPECIMEN Ordering Facility[facility] Address: [address] [place] [address] Performed By: #### 5 8410-2 #### [facility] CLIA [id number] [address] [place] CONSULTon 01-03-2023 CONSULT HNO ID: [id number] Author: Curt Erwin DO Service: Hospital Medicine [...] from home with mechanical fall transferred from [facility]. Patient reports he was getting up to [...] labs and imaging results. [place] [facility] [place] [facility] Notable findings:hgb-9.5 Cr-2.29 XR L hip- intertrochanteric femur fx CT brain-1.2 cmn hyperdense focus L frontal lobe w/ surrounding vasogenic edema-likely subacute hematoma Impression/Recommendations The patient is (more content not included)... Normal [facility] CONSULT HNO ID: [id number] Author: Renetta Mehta PA-C Service: Neurosurgery Author Type: Physician Urban Sociologist Type: Consults Filed: 01/03/2023 4:25 PM Note [...] month ago when he was seen in [place]. He is neurologically intact except for limited [...] SERVICE TIME: 4:07 PM REASON FOR CONSULT: [facility] REQUESTING PHYSICIAN: Prosper PRIMARY CARE PHYSICIAN: Elida [...] (peripheral artery disease) (HCC) UC (ulcerative colitis) ([facility]) PAST SURGICAL HISTORY Procedure Laterality Date PAST [...] (TYLENOL) 975 mg ORAL q 6 H [facility] [place], DO 975 mg at 01/03/23 1412 [START ON 01/04/2023] pantoprazole 40 mg injection (PROTONIX) 40 mg INTRAVENOUS DAILY (6 AM) JoaoCárdenas, zinc oxide 20 % TOPICAL BID Alexia Almonte APRN.B[employer] Current Outpatient Medications Medication Sig Dispense Refill [...] (more content not included)... Normal [facility] CONSULT HNO ID: [id number] Author: Errol Rod MD Service: Orthopaedic Surgery [...] HPI: 82 year old male presented to [facility] ED on 01/03/2023 as a transfer from [place] for evaluation of left hip pain. The [...] Surgery 01/03/2023 11:00 AM Normal [facility] CONSULT PROGon 01-03-2023 CONSULT PROG HNO ID: [id number] Author: Alexia Almonte APRN.B[employer] Service: Wound/Ostomy Author Type: Nurse Practitioner Type: Consult Progress Note Filed: 01/03/2023 3:48 PM Note Text: WOUND CARE SERVICE CONSULT CORN PICKER NOTE SERVICE DATE: 01/03/2023 SERVICE TIME: 1511 [...] who is seen today with Kathi Hernandez, Wound/info specialist, and presented to hospital with complaints of [...] 01/03/2023 3:15 PM Wound Image Site Assessment [place];Edema;Yellow [place]el[place]-Wound Assessment Yellow-brown (Hemosiderin staining) Shape irregular [...] CARE (SPECIFY) ([place]) Routine Active Alexia Almonte APRN.B[employer] - Specify:: Adaptic, calcium alginate, ABD and [...] 01/03/2023 3:20 PM Wound Image Site Assessment [place];Red [place]-Wound Assessment Intact Shape irregular Wound Length [...] CARE (SPECIFY) ([place]) Routine Active Alexia Almonte, SRAVAN.BURN OUT TENDER LACE - Specify:: xeroform to skin tears left [...] (more content not included)... Normal [facility] CT BRAIN WO IVCONon 01-04-20 CT BRAIN WO IVCON * * *Final Report* * * DATE OF EXAM: Jan 03 2023 1:25PM [facility] 0504 - CT BRAIN WO IVCON [...] COMPARISON: Outside CT from earlier today RESULT: Buffing Wheel Former Automatic (topogram) images: No additional findings. Post-operative change: [...] frontal parenchymal hematoma with some associated edema. Regional Transfer Liaison: ANABEL Transcribe Date/Time: Jan 03 2023 1:31P Dictated by : JUWAN NARANJO MD This examination was interpreted and the report reviewed and electronically signed by: JUWAN NARANJO MD on Jan 03 2023 1:35PM EST [id number] Normal [facility] Determination of erythrocyte mean corpuscular volume (MCV)Ordered By: Lupe Joe on 01-03-2023 MCV (RBC) [Entitic vol] 102.4 fL 80-94 [facility] ED NOTEon 01-03-2023 ED NOTE HNO ID: [id number] Author: Tresa Hernandez RN Service: ? Author Type: Registered Nurse Type: ED Notes Filed: 01/03/2023 9:33 PM Note Text: Attempted report x1. Left on hold >5 minutes Normal [facility] ED NOTE HNO ID: [id number] Author: Crispin Addison RN Service: ? Author Type: Registered Nurse Type: ED Notes Filed: 01/03/2023 5:35 PM Note Text: Normal [facility] ED NOTE HNO ID: [id number] Author: Crispin Addison RN Service: ? Author Type: Registered Nurse Type: ED Notes Filed: 01/03/2023 5:35 PM Note Text: Mri screening form completed and faxed Normal [facility] ED NOTE HNO ID: [id number] Author: Alyssa Mao RN Service: Emergency Medicine Author Type: Registered Nurse Type: ED Notes Filed: 01/03/2023 1:13 PM Note Text: ED CT AWARE OF OUTSTANDING ORDER Normal [facility] ED NOTE HNO ID: [id number] Author: Alyssa Mao RN Service: Emergency Medicine Author Type: Registered Nurse Type: ED Notes Filed: 01/03/2023 1:16 PM Note Text: Patients cardiac leads disconnected pt placed back on monitor. Normal [facility] ED NOTE HNO ID: [id number] Author: Crispin Addison RN Service: ? Author Type: Registered Nurse Type: ED Notes Filed: 01/03/2023 10:34 AM Note Text: Patient placed on cardiac care unit nurse, patient placed on non-invasive blood pressure monitor, patient placed on continuous pulse oximetry. Alarms set and on, patient tolerating monitoring. 70SR Normal [facility] ED NOTE HNO ID: [id number] Author: Sawyer Kumar Service: ? Author Type: Regional Sales Engineer and 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 Type: ED Notes Filed: 01/03/2023 10:29 AM Note Text: Bed: [address] [place] [address] Expected date: 01/03/23 Expected time: 10:23 AM Means of arrival[facility] Normal [facility] ED PROV NOTEon 01-03-2023 ED PROV NOTE HNO ID: [id number] Author: Mercedes Lai MD Service: Emergency Medicine Author Type: Physician Type: ED Provider Notes Filed: 01/13/2023 6:14 PM Note Text: ED Provider Note Patient Name: Amaury Blank : 1940 SERVICE DATE: 01/03/23 History Patient presents with: Trauma: [facility] this a.m . Pt states he lost his balaance and fell, + left hip fx and also brain bleed that is old but worsening. + hit head but did not have loc. Gcs 15 HPI Mr. Amaury Blank is a 82 year old male with PMH CAD, HTN, HLD, UC presenting today with trauma transfer from [facility] after mechanical fall. The patient was at home this morning when he lost his balance and fell down landing on his left hip. He was unable to ambulate and felt immediate pain in his left hip. At [facility], he was evaluated to have left intertrochanteric [...] (more content not included)... Normal [facility] EKGon 01-03-2023 Electrocardiogram Ventricular Rate : 7 0 BPM Atrial Rate : 70 BPM P-R Interval : 254 ms QRS Duration : 132 ms Q-T Interval : 444 ms QTC Calculation(Bazett) : 479 ms Calculated P [place] : 33 degrees Calculated R [place] : -47 degrees Calculated T [place] : 63 degrees SINUS RHYTHM WITH 1ST DEGREE A-V BLOCK LEFT AXIS DEVIATION NON-SPECIFIC INTRA-VENTRICULAR CONDUCTION BLOCK INFERIOR INFARCT , AGE UNDETERMINED ABNORMAL ECG NO PREVIOUS ECGS AVAILABLE Confirmed by MD CAMPUZANO THOMAS ([id number]) on 01/12/2023 2:55:59 PM NAME : AMAURY BLANK PID : [id number] : 1940 Gender : Male Race : ORD : Procedure Date : Jan 03 2023 18:17:18 Edit Date : Jan 12 2023 14:56:00 Diagnosis: SINUS RHYTHM WITH 1ST DEGREE A-V BLOCK LEFT AXIS DEVIATION NON-SPECIFIC INTRA-VENTRICULAR CONDUCTION BLOCK INFERIOR INFARCT , AGE UNDETERMINED ABNORMAL ECG NO PREVIOUS ECGS AVAILABLE Confirmed by MD CAMPUZANO THOMAS ([id number]) on 01/12/2023 2:55:59 PM Test Reason : Location : 4 : [facility] Overread By : MD CAMPUZANO THOMAS Edited By : MD CAMPUZANO THOMAS Referred By : , Acquired by : DEANNA ALMAGUER [facility] HISTORY PHYSICALon HISTORY PHYSICAL HNO ID: [id number] Author: Blade Cheng MD Service: General Surgery Author Type: Resident Type: HANDP Filed: 01/03/2023 5:38 PM Note Text: Attestation signed by Bing Perez MD at 01/28/2023 2:29 PM I personally saw and examined the patient on 01/03/23. I reviewed the resident's note. I agree with the resident's assessment and plan unless otherwise noted. Bing Perez MD TRAUMA SURGERY [facility] ARRIVAL DATE: 01.03.23 ARRIVAL TIME: : INJURY DATE: 01.03.23 INJURY TIME: 0500 Subjective 82 year old male PMHx of CAD s/p CABG, HTN, COPD, A-fib, and HLD fell from ground height and hit his head when he was was trying to turn while using his walker today in the AM. Patient denies loss of consciousness. Patient lives in a assisted. Patient patient says he also has left [...] (more content not included)... Normal [facility] Hematocrit Auto (Bld) [Volum e fraction]Ordered By: Lupe Joe on 01-03-2023 Hematocrit (Bld) [Volume fraction] 30.3 % 40-54 [facility] ([facility] [Mass/Vol]Or dered By: Lupe Joe on 01-03-2023 MCHC (RBC) [Mass/Vol] 31.4 g/dL 32-36 [facility] Natriuretic peptide.B prohormone N-Terminal [Mass/Vol] 4837 pg/mL High <450 [facility] Comment on above: Order Comment: Migel barnard Type: BLOOD SPECIMEN Ordering Facility: [facility] Address: [address] [place] [address] Performed By: #### 5 8410-2 #### [facility] CLIA [id number] [address] No Panel InformationOrdered By: Lupe Joe on 01-03-2023 32.1 pg 27.0-32.0 [facility] 14.1 % 11.6-14.6 [facility] 53.4 fl 35.1-43.9 [facility] 0.700 % 0.0-0.9 [facility] 0 % 0-5 [facility] 29 mL/min >60 [facility] 35 mL/min >60 [facility] 25.94 ml/min [facility] 17.9 RATIO 10-20 [facility] 28.0 mmol/L 21.0-32.0 [facility] POTASSIUM BLDon 01-03-2023 Potassium [Moles/Vol] 5.3 mmol/L High 3.7-5.1 [facility] Comment on above: Order Comment: Migel barnard Type: BLOOD SPECIMEN Ordering Facility: [facility] Address: [address] [place] [address] Performed By: #### 5 8410-2 #### [facility] CLIA [id number] [address] PT panel Coag (PPP)on 2022 INR Coag (PPP) [Relative time] 1.0 {INR} Normal 0.9-1.3 [facility] Comment on above: Order Comment: Migel barnard Type: BLOOD SPECIMEN Ordering Facility: [facility] Address: [address] [place] [address] Result Comment: Bettie min K Antagonist (VKA) Therapeutic Range: INR 2 to 3 (Target INR of 2.5) Note: For patients treated with VKA drugs, such as warfarin, the [employer] 2012 Guideline recommends [...] Chest 2012, 141:7S-47S Errol CAI et al. [facility] 2017, 70: 252-289 Performed By: #### 5 8410-2 #### [facility] CLIA [id number] [address] [facility] PT Coag (PPP) [Time] 10.5 s Normal 9.7-13.0 [facility] Comment on above: Order Comment: Speci men Type: BLOOD SPECIMEN Ordering Facility: [facility] Address: [address] [place], [place] [id number] Performed By: #### 5 8410-2 #### [facility] CLIA [id number] [address] Platelets bldOrdered By: Johnna Joe on 01-03-2023 Platelets (Bld) [#/Vol] 203 10*3/uL 150-450 [facility] Serum or plasma calcium elvia urement (mass/volume)Ordered By: Remus Joe on 01-03-2023 Calcium [Mass/Vol] 8.8 mg/dL 8.5-10.1 [facility] Serum or plasma creatinine m easurement (mass/volume)Ordered By: Remus Joe on 01-03-2023 Creatinine [Mass/Vol] 2.29 mg/dL 0.70-1.30 [facility] Serum or plasma urea nitroge n measurement (mass/volume)Ordered By: Remus Joe on 01-03-2023 Urea nitrogen [Mass/Vol] 41 mg/dL 7-18 [facility] Thin prep Papanicolaou smear with manual screeningOrdered By: Remus Joe on 01-03-2023 Thin prep Papanicolaou smear with manual screening 4 5-15 [facility] aPTT PPPon 01-03-2023 aPTT Coag (PPP) [Time] 27.4 s Normal 23.0-32.4 [facility] Comment on above: Order Comment: Speci men Type: BLOOD SPECIMEN Ordering Facility: [facility] Address: [address] [place] [id number] Performed By: #### 5 8410-2 #### [facility] CLIA [id number] 1 [place] [address] [facility] Absolute lymphocyte countOrd ered By: Paco Norman on 01-01-2023 Lymphocytes Auto (Unsp spec) [#/Vol] 0.83 10*3/uL 0.83-4.51 [facility] Basophil percentageOrdered B y: Paco Norman on 01-01-2023 Basophil percentage 82 mg/dL 74-106 [facility] Basophil percentage 140 mmol/L 136-145 [facility] Basophil percentage 4.3 mmol/L 3.5-5.1 [facility] Basophil percentage 110 mmol/L 98-107 [facility] Basophils (Bld) [#/Vol] 4.8 10*3/uL 4.4-11.0 [facility] Basophils (Bld) [#/Vol] 3.4 10*3/uL 2.0-7.7 [facility] Basophils/100 WBC (Bld) 70.0 % 47-70 [facility] Basophils/100 WBC (Bld) 2.9 % 0-5 [facility] Basophils/100 WBC (Bld) 0.4 % 0-1 [facility] Blood erythrocytes count (nu mber/volume)Ordered By: Paco Norman on 01-01-2023 RBC (Bld) [#/Vol] 2.75 10*6/uL 4.6-6.2 [facility] Blood hemoglobin measurement (mass/volume)Ordered By: Paco Norman on 01-01-2023 Hemoglobin (Bld) [Mass/Vol] 9.0 g/dL 13.0-16.5 [facility] Blood lymphocytes/100 leukoc ytesOrdered By: Paco Norman on 01-01-2023 Lymphocytes/100 WBC (Bld) 17.3 % 19-41 [facility] Blood monocytes/100 leukocyt esOrdered By: Paco Norman on 01-01-2023 Monocytes/100 WBC (Bld) 9.2 % 0-10 [facility] Blood platelet mean volumeOr dered By: Paco Norman on 01-01-2023 Platelet mean volume (Bld) [Entitic vol] 9.6 fL 6.2-12.0 [facility] Determination of erythrocyte mean corpuscular volume (MCV)Ordered By: Paco Norman on 01-01-2023 MCV (RBC) [Entitic vol] 102.9 fL 80-94 [facility] Hematocrit Auto (Bld) [Volum e fraction]Ordered By: Paco Norman on 01-01-2023 Hematocrit (Bld) [Volume fraction] 28.3 % 40-54 [facility] MCHC Auto (RBC) [Mass/Vol]Or dered By: Paco Norman on 01-01-2023 MCHC (RBC) [Mass/Vol] 31.8 g/dL 32-36 [facility] No Panel InformationOrdered By: Paco Norman on 01-01-2023 32.7 pg 27.0-32.0 [facility] 14.2 % 11.6-14.6 [facility] 54.3 fl 35.1-43.9 [facility] 0.200 % 0.0-0.9 [facility] 0 % 0-5 [facility] 30 mL/min >60 [facility] 36 mL/min >60 [facility] 19.1 RATIO 10-20 [facility] 26.0 mmol/L 21.0-32.0 [facility] Platelets bldOrdered By: Rajendra Norman on 01-01-2023 Platelets (Bld) [#/Vol] 177 10*3/uL 150-450 [facility] Serum or plasma calcium elvia urement (mass/volume)Ordered By: Paco Norman on 01-01-2023 Calcium [Mass/Vol] 8.6 mg/dL 8.5-10.1 [facility] Serum or plasma creatinine m easurement (mass/volume)Ordered By: Jelenapillonicholasdel Norman on 01-01-2023 Creatinine [Mass/Vol] 2.25 mg/dL 0.70-1.30 [facility] Serum or plasma urea nitroge n measurement (mass/volume)Ordered By: Paco Norman on 01-01-2023 Urea nitrogen [Mass/Vol] 43 mg/dL 7-18 [facility] Thin prep Papanicolaou smear with manual screeningOrdered By: pillolive oakdel Norman on 01-01-2023 Thin prep Papanicolaou smear with manual screening 4 -15 [facility] Absolute lymphocyte countOrd ered By: Paco Norman on 12-24-2022 Lymphocytes Auto (Unsp spec) [#/Vol] 0.80 10*3/uL 0.83-4.51 [facility] Bacteria identified Cx Nom ( Wound)Ordered By: Paco Norman on 12-24-2022 Routine wound culture Stenotrophomonas maltophilia [facility] Routine wound culture Corynebacterium jeikeium [facility] Basophil percentageOrdered B y: Paco Norman on 12-24-2022 Basophil percentage 88 mg/dL 74-106 [facility] Basophil percentage 5.3 g/dL 6.4-8.2 [facility] Basophil percentage 0.50 mg/dL 0.20-1.00 [facility] Basophil percentage 105 mg/dL <200 [facility] Basophil percentage 61 mg/dL <199 [facility] Basophil percentage 141 mmol/L 136-145 [facility] Basophil percentage 4.1 mmol/L 3.5-5.1 [facility] Basophil percentage 109 mmol/L 98-107 [facility] Basophils (Bld) [#/Vol] 6.6 10*3/uL 4.4-11.0 [facility] Basophils (Bld) [#/Vol] 4.9 10*3/uL 2.0-7.7 [facility] Basophils/100 WBC (Bld) 0.6 % 0-1 [facility] Basophils/100 WBC (Bld) 74.4 % 47-[address] [facility] Basophils/100 WBC (Bld) 3.2 % 0-[address] [facility] Bilirubin [Mass/Vol] 0.50 mg/dL 0.20-1.00 [facility] Comment on above: For patients on eltr ombopag therapy, use of Dimension [place] TBIL is not recommended. Chloride [Moles/Vol] 109 mmol/L 98-107 [facility] Cholesterol [Mass/Vol] 105 mg/dL <200 [facility] Comment on above: <200 mg/dL Desirable 200-240 mg/dL Borderline >240 mg/dL High Risk Eosinophils/100 WBC (Bld) 3.2 % 0-5 [facility] Glucose [Mass/Vol] 88 mg/dL 74-106 [facility] Neutrophils (Bld) [#/Vol] 4.9 10*3/uL 2.0-7.7 [facility] Neutrophils/100 WBC (Bld) 74.4 % 47-70 [facility] Potassium [Moles/Vol] 4.1 mmol/L 3.5-5.1 [facility] Protein [Mass/Vol] 5.3 g/dL 6.4-8.2 [facility] Sodium [Moles/Vol] 141 mmol/L 136-145 [facility] Triglyceride [Mass/Vol] 61 mg/dL <[address] [facility] Comment on above: The drugs N-Acetylcy steine and Metamizole may falsely depress this assay.Serum Triglycerides Reference Interval Normal <150 mg/dL Borderline high 150 - 199 mg/dL High 200 - 499 mg/dL Very High > or = 500 mg/dL WBC (Bld) [#/Vol] 6.6 10*3/uL 4.4-11.0 [facility] Blood erythrocytes count (nu mber/volume)Ordered By: Paco Norman on 12-24-2022 RBC (Bld) [#/Vol] 2.93 10*6/uL 4.6-6.2 [facility] Blood hemoglobin measurement (mass/volume)Ordered By: Paco Norman on 12-24-2022 Hemoglobin (Bld) [Mass/Vol] 9.7 g/dL 13.0-16.5 [facility] Blood lymphocytes/100 leukoc ytesOrdered By: Paco Norman on 12-24-2022 Lymphocytes/100 WBC (Bld) 12.1 % 19-41 [facility] Blood monocytes/100 leukocyt esOrdered By: Paco Norman on 12-24-2022 Monocytes/100 WBC (Bld) 9.1 % 0-10 [facility] Blood platelet mean volumeOr dered By: Paco Norman on 12-24-2022 Platelet mean volume (Bld) [Entitic vol] 10.2 fL 6.2-12.0 [facility] Determination of erythrocyte mean corpuscular volume (MCV)Ordered By: Paco Nroman on 12-24-2022 MCV (RBC) [Entitic vol] 103.8 fL 80-94 [facility] Gram stain for investigation of transfusion reactionOrdered By: Paco Norman on 12-24-2022 Microscopic observation Gram stain Nom (Unsp spec) [facility] Hematocrit Auto (Bld) [Volum e fraction]Ordered By: Riazlive oakdel Norman on 12-24-2022 Hematocrit (Bld) [Volume fraction] 30.4 % 40-54 [facility] Laboratory - Chemistry and C hemistry - challengeOrdered By: Paco Norman on 12-24-2022 ALP [Catalytic activity/Vol] 89 U/L 45-117 [facility] ALT [Catalytic activity/Vol] 19 U/L 16-61 [facility] CO2 [Moles/Vol] 26.0 mmol/L 21.0-32.0 [facility] Globulin (S) [Mass/Vol] 3.1 g/dL 2.2-4.2 [facility] Urea nitrogen/Creatinine [Mass ratio] 32.7 mg/mg 10-20 [facility] Laboratory - Hematology and Cell countsOrdered By: Paco Norman on 12-24-2022 Erythrocyte distribution width (RBC) [Entitic vol] 56.1 fL 35.1-43.9 [facility] Erythrocyte distribution width (RBC) [Ratio] 14.6 % 11.6-14.6 [facility] Immature granulocytes/100 WBC (Bld) 0.600 % 0.0-0.9 [facility] Comment on above: IG% - Immature Granu locytes (promyelocytes, myelocytes and metamyelocytes) > 1% indicates that a LEFT SHIFT is Present. MCH (RBC) [Entitic mass] 33.1 pg 27.0-32.0 [facility] Nucleated RBC/100 WBC (Bld) [Ratio] 0 % 0-5 [facility] MCHC Auto (RBC) [Mass/Vol]Or dered By: Paco Norman on 12-24-2022 MCHC (RBC) [Mass/Vol] 31.9 g/dL 32-36 [facility] No Panel InformationOrdered By: Paco Norman on 12-24-2022 Estimated GFR (MDRD) Amer 42 mL/min >60 [facility] Comment on above: GFR Calc Estimated GFR (MDRD) Non-Af Amer 35 mL/min >60 [facility] Comment on above: Non- GFR Calc 33.1 pg 27.0-32.0 [facility] 14.6 % 11.6-14.6 [facility] 56.1 fl 35.1-43.9 [facility] 0.600 % 0.0-0.9 [facility] 0 % 0-5 [facility] 35 mL/min >60 [facility] 42 mL/min >60 [facility] 32.7 RATIO 10-20 [facility] 3.1 g/dL 2.2-4.2 [facility] 89 U/L 45-117 [facility] 19 U/L 16-61 [facility] 26.0 mmol/L 21.0-32.0 [facility] Platelets bldOrdered By: Rajendra Norman on 12-24-2022 Platelets (Bld) [#/Vol] 144 10*3/uL 150-450 [facility] Serum or plasma albumin elvia urement (mass/volume)Ordered By: Paco Norman on 12-24-2022 Albumin [Mass/Vol] 2.2 g/dL 3.2-5.0 [facility] Serum or plasma albumin/glob ulin mass ratioOrdered By: Paco Norman on 12-24-2022 Albumin/Globulin [Mass ratio] 0.7 {ratio} 0.9-2.4 [facility] Serum or plasma calcium elvia urement (mass/volume)Ordered By: Paco Norman on 12-24-2022 Calcium [Mass/Vol] 9.0 mg/dL 8.5-10.1 [facility] Serum or plasma cholesterol in HDL measurement (mass/volume)Ordered By: Paco Norman on 12-24-2022 Cholesterol in HDL [Mass/Vol] 48 mg/dL >40 [facility] Comment on above: The drugs N-Acetylcy steine and Metamizole may falsely depress this assay. Reference Range HDL <40 mg/dL Low HDL Cholesterol HDL >or= 60 mg/dL High HDL Cholesterol Serum or plasma cholesterol in VLDL measurement (mass/volume)Ordered By: Paco Norman on 12-24-2022 Cholesterol in VLDL [Mass/Vol] 12 mg/dL 5-40 [facility] Serum or plasma creatinine m easurement (mass/volume)Ordered By: Paco Norman on 12-24-2022 Creatinine [Mass/Vol] 1.96 mg/dL 0.70-1.30 [facility] Comment on above: The validity of the calculated GFR & GFRAA in patients over 70 years has not been determined. Clinical correlation is essential. Serum or plasma low density lipoprotein (LDL) cholesterol measurement (mass/volume)Ordered By: Paco Norman on 12-24-2022 Cholesterol in LDL [Mass/Vol] 45 mg/dL 0-130 [facility] Serum or plasma urea nitroge n measurement (mass/volume)Ordered By: Paco Norman on 12-24-2022 Urea nitrogen [Mass/Vol] 64 mg/dL 7-18 [facility] Thin prep Papanicolaou smear with manual screeningOrdered By: Paco Norman on 12-24-2022 Thin prep Papanicolaou smear with manual screening 18 U/L 15-37 [facility] Thin prep Papanicolaou smear with manual screening 6 5-15 [facility] Serum or plasma carcinoembry onic antigen measurement (mass/volume)Ordered By: Irving Horowitz on 12-21-2022 Carcinoembryonic Ag [Mass/Vol] 2.0 ng/mL 0.0-4.7 [facility] Comment on above: Nonsmokers <3.9 Smok ers <5.6[employer] Electrochemiluminescence Immunoassay(ECLIA)Values obtained with different assay methods or kitscannot be used interchangeably. Results cannot beinterpreted as absolute evidence of the presence orabsence of malignant disease. Serum or plasma gastrin elvia urement (mass/volume)Ordered By: Irving Horowitz on 12-21-2022 Gastrin [Mass/Vol] 439 pg/mL 0-115 [facility] Comment on above: Siemens Immulite 200 0 Immunochemiluminometric assay (ICMA)Values obtained with different assay methods or kits cannotbe used interchangeably. Results cannot be interpreted asabsolute evidence of the presence or absence of malignantdisease.Performed at: - [facility] [id number] Director: Amaury Raya PhD, Phone: [phone] at: [facility] [id number] Director: Camilla Ochoa MD, Phone: [phone] Absolute lymphocyte countOrd ered By: Dr. Hale on 12-19-2022 Lymphocytes Auto (Unsp spec) [#/Vol] 0.78 10*3/uL 0.83-4.51 [facility] Basophil percentageOrdered B y: Jesu Hlae on 12-19-2022 Basophil percentage 133 mg/dL 74-106 [facility] Basophil percentage 140 mmol/L 136-145 [facility] Basophil percentage 4.3 mmol/L 3.5-5.1 [facility] Basophil percentage 105 mmol/L 98-107 [facility] Basophils (Bld) [#/Vol] 7.5 10*3/uL 4.4-11.0 [facility] Basophils (Bld) [#/Vol] 5.9 10*3/uL 2.0-7.7 [facility] Basophils/100 WBC (Bld) 78.6 % 47-70 [facility] Basophils/100 WBC (Bld) 1.9 % 0-5 [facility] Basophil percentageOrdered B y: Dr. Hale on 12-19-2022 Basophils/100 WBC (Bld) 0.3 % 0-1 [facility] Chloride [Moles/Vol] 105 mmol/L 98-107 [facility] Eosinophils/100 WBC (Bld) 1.9 % 0-5 [facility] Glucose [Mass/Vol] 133 mg/dL 74-106 [facility] Comment on above: Fasting Glucose resu lt greater than or equal to 126 mg/dL suggests DIABETES MELLITUS per A.D.A. criteria. Neutrophils (Bld) [#/Vol] 5.9 10*3/uL 2.0-7.7 [facility] Neutrophils/100 WBC (Bld) 78.6 % 47-70 [facility] Potassium [Moles/Vol] 4.3 mmol/L 3.5-5.1 [facility] Sodium [Moles/Vol] 140 mmol/L 136-145 [facility] WBC (Bld) [#/Vol] 7.5 10*3/uL 4.4-11.0 [facility] Blood erythrocytes count (nu mber/volume)Ordered By: Dr. Hale on 12-19-2022 RBC (Bld) [#/Vol] 3.27 10*6/uL 4.6-6.2 [facility] Blood hemoglobin measurement (mass/volume)Ordered By: Dr. Hale on 12-19-2022 Hemoglobin (Bld) [Mass/Vol] 10.6 g/dL 13.0-16.5 [facility] Blood lymphocytes/100 leukoc ytesOrdered By: Dr. Hale on 12-19-2022 Lymphocytes/100 WBC (Bld) 10.4 % 19-41 [facility] Blood monocytes/100 leukocyt esOrdered By: [address]. Hale on 12-19-2022 Monocytes/100 WBC (Bld) 8.0 % 0-10 [facility] Blood platelet mean volumeOr dered By: Dr. Hale on 12-19-2022 Platelet mean volume (Bld) [Entitic vol] 10.0 fL 6.2-12.0 [facility] Determination of erythrocyte mean corpuscular volume (MCV)Ordered By: Dr. Hale on 12-19-2022 MCV (RBC) [Entitic vol] 100.6 fL 80-94 [facility] Hematocrit Auto (Bld) [Volum e fraction]Ordered By: Dr. Hale on 12-19-2022 Hematocrit (Bld) [Volume fraction] 32.9 % 40-54 [facility] Laboratory - Chemistry and C hemistry - challengeOrdered By: Dr. Hale on 12-19-2022 CO2 [Moles/Vol] 29.0 mmol/L 21.0-32.0 [facility] Urea nitrogen/Creatinine [Mass ratio] 45.6 mg/mg 10-20 [facility] Laboratory - Hematology and Cell countsOrdered By: Dr. Hale on 12-19-2022 Erythrocyte distribution width (RBC) [Entitic vol] 62.8 fL 35.1-43.9 [facility] Erythrocyte distribution width (RBC) [Ratio] 16.9 % 11.6-14.6 [facility] Immature granulocytes/100 WBC (Bld) 0.800 % 0.0-0.9 [facility] Comment on above: IG% - Immature Granu locytes (promyelocytes, myelocytes and metamyelocytes) > 1% indicates that a LEFT SHIFT is Present. MCH (RBC) [Entitic mass] 32.4 pg 27.0-32.0 [facility] Nucleated RBC/100 WBC (Bld) [Ratio] 0 % 0-5 [facility] MCHC Auto (RBC) [Mass/Vol]Or dered By: Dr. Hale on 12-19-2022 MCHC (RBC) [Mass/Vol] 32.2 g/dL 32-36 [facility] No Panel InformationOrdered By: Dr. Hale on 12-19-2022 Estimated Creatinine Clearance Calc 26.47 ml/min [facility] Estimated GFR (MDRD) Amer 36 mL/min >60 [facility] Comment on above: GFR Calc Estimated GFR (MDRD) Non-Af Amer 30 mL/min >60 [facility] Comment on above: Non- GFR Calc No Panel InformationOrdered By: Jesu Hale on 12-19-2022 32.4 pg 27.0-32.0 [facility] 16.9 % 11.6-14.6 [facility] 62.8 fl 35.1-43.9 [facility] 0.800 % 0.0-0.9 [facility] 0 % 0-5 [facility] 30 mL/min >60 [facility] 36 mL/min >60 [facility] 26.47 ml/min [facility] 45.6 RATIO 10-20 [facility] 29.0 mmol/L 21.0-32.0 [facility] Platelets bldOrdered By: Dr. Hale on 12-19-2022 Platelets (Bld) [#/Vol] 145 10*3/uL 150-450 [facility] Serum or plasma calcium elvia urement (mass/volume)Ordered By: Dr. Hale on 12-19-2022 Calcium [Mass/Vol] 9.3 mg/dL 8.5-10.1 [facility] Serum or plasma creatinine m easurement (mass/volume)Ordered By: Dr. Hale on 12-19-2022 Creatinine [Mass/Vol] 2.26 mg/dL 0.70-1.30 [facility] Comment on above: The validity of the calculated GFR & GFRAA in patients over 70 years has not been determined. Clinical correlation is essential. Serum or plasma urea nitroge n measurement (mass/volume)Ordered By: Dr. Hale on 12-19-2022 Urea nitrogen [Mass/Vol] 103 mg/dL 7-18 [facility] Comment on above: Critical Result(s) C alled at: 09:10:17 12/19/2022 by: Jackie Moreno. Results read back by same. Thin prep Papanicolaou smear with manual screeningOrdered By: Dr. Hale on 12-19-2022 Thin prep Papanicolaou smear with manual screening 6 -15 [facility] Absolute lymphocyte countOrd ered By: Dr. Hale on 12-18-2022 Lymphocytes Auto (Unsp spec) [#/Vol] 0.86 10*3/uL 0.83-4.51 [facility] Basophil percentageOrdered B y: Dr. Hale on 12-18-2022 Basophils/100 WBC (Bld) 0.3 % 0-1 [facility] Chloride [Moles/Vol] 103 mmol/L 98-107 [facility] Eosinophils/100 WBC (Bld) 1.7 % 0-5 [facility] Glucose [Mass/Vol] 98 mg/dL 74-106 [facility] Neutrophils (Bld) [#/Vol] 4.5 10*3/uL 2.0-7.7 [facility] Neutrophils/100 WBC (Bld) 70.1 % 47-70 [facility] Potassium [Moles/Vol] 4.5 mmol/L 3.5-5.1 [facility] Sodium [Moles/Vol] 139 mmol/L 136-145 [facility] WBC (Bld) [#/Vol] 6.5 10*3/uL 4.4-11.0 [facility] Blood erythrocytes count (nu mber/volume)Ordered By: Dr. Hale on 12-18-2022 RBC (Bld) [#/Vol] 2.07 10*6/uL 4.6-6.2 [facility] Blood hemoglobin measurement (mass/volume)Ordered By: Dr. Hale on 12-18-2022 Hemoglobin (Bld) [Mass/Vol] 7.0 g/dL 13.0-16.5 [facility] Blood lymphocytes/100 leukoc ytesOrdered By: Dr. Hale on 12-18-2022 Lymphocytes/100 WBC (Bld) 13.3 % 19-41 [facility] Blood monocytes/100 leukocyt esOrdered By: Dr. Hale on 12-18-2022 Monocytes/100 WBC (Bld) 13.8 % 0-10 [facility] Blood platelet mean volumeOr dered By: Dr. Hale on 12-18-2022 Platelet mean volume (Bld) [Entitic vol] 9.9 fL 6.2-12.0 [facility] Determination of erythrocyte mean corpuscular volume (MCV)Ordered By: Dr. Hale on 12-18-2022 MCV (RBC) [Entitic vol] 104.8 fL 80-94 [facility] Hematocrit Auto (Bld) [Volum e fraction]Ordered By: Dr. Hale on 06-21-2023 Hematocrit (Bld) [Volume fraction] 21.7 % 40-54 [facility] Laboratory - Chemistry and C hemistry - challengeOrdered By: Dr. Hale on 12-18-2022 CO2 [Moles/Vol] 30.0 mmol/L 21.0-32.0 [facility] Urea nitrogen/Creatinine [Mass ratio] 48.7 mg/mg 10-20 [facility] Laboratory - Hematology and Cell countsOrdered By: Dr. Hale on 12-18-2022 Erythrocyte distribution width (RBC) [Entitic vol] 54.2 fL 35.1-43.9 [facility] Erythrocyte distribution width (RBC) [Ratio] 14.3 % 11.6-14.6 [facility] Immature granulocytes/100 WBC (Bld) 0.800 % 0.0-0.9 [facility] Comment on above: IG% - Immature Granu locytes (promyelocytes, myelocytes and metamyelocytes) > 1% indicates that a LEFT SHIFT is Present. MCH (RBC) [Entitic mass] 33.8 pg 27.0-32.0 [facility] Nucleated RBC/100 WBC (Bld) [Ratio] 0 % 0-5 [facility] MCHC Auto (RBC) [Mass/Vol]Or dered By: Dr. Hale on 12-18-2022 MCHC (RBC) [Mass/Vol] 32.3 g/dL 32-36 [facility] No Panel InformationOrdered By: Dr. Hale on 12-18-2022 Estimated Creatinine Clearance Calc 25.78 ml/min [facility] Estimated GFR (MDRD) Amer 35 mL/min >60 [facility] Comment on above: GFR Calc Estimated GFR (MDRD) Non-Af Amer 29 mL/min >60 [facility] Comment on above: Non- GFR Calc Platelets bldOrdered By: Dr. Hale on 12-18-2022 Platelets (Bld) [#/Vol] 149 10*3/uL 150-450 [facility] Serum or plasma calcium elvia urement (mass/volume)Ordered By: Dr. Hale on 12-18-2022 Calcium [Mass/Vol] 8.6 mg/dL 8.5-10.1 [facility] Serum or plasma creatinine m easurement (mass/volume)Ordered By: Dr. Hale on 12-18-2022 Creatinine [Mass/Vol] 2.32 mg/dL 0.70-1.30 [facility] Comment on above: The validity of the calculated GFR & GFRAA in patients over 70 years has not been determined. Clinical correlation is essential. Serum or plasma urea nitroge n measurement (mass/volume)Ordered By: Dr. Hale on 12-18-2022 Urea nitrogen [Mass/Vol] 113 mg/dL 7-18 [facility] Comment on above: Critical Result(s) C alled at: 06:35:35 12/18/2022 by: Delores Ojeda RN (TCU). Results read back by same. Thin prep Papanicolaou smear with manual screeningOrdered By: Dr. Hale on 12-18-2022 Thin prep Papanicolaou smear with manual screening 6 5-15 [facility] Lower GI hemoglobin IA Ql (S tl)Ordered By: Jesu Hale on 12-17-2022 Stool Occult Blood (OSCAR) Positive [facility] Stool gastrointestinal hemoglobin detection by immunologic method Positive [facility] Lower GI hemoglobin IA Ql (S tl)Ordered By: Dr. Hale on 12-17-2022 Stool Occult Blood (OSCAR) Positive [facility] Laboratory - Chemistry and C hemistry - challengeOrdered By: Jackie Myrick on 12-16-2022 Magnesium [Mass/Vol] 2.1 mg/dL 1.6-2.6 [facility] No Panel InformationOrdered By: Jackie Myrick on 12-16-2022 2.1 mg/dL 1.6-2.6 [facility] COVID-19 virus antigen assay Ordered By: Jesu Hale on 12-07-2022 SARS-CoV-2 (COVID-19) Ag IA.rapid Ql (Resp) [facility] COVID-19 virus antigen assay Ordered By: Dr. Hale on 12-07-2022 SARS-CoV-2 (COVID-19) Ag IA.rapid Ql (Resp) [facility] Basophil percentageOrdered B y: Jesu Hale on 12-06-2022 Basophil percentage 6.3 g/dL 6.4-8.2 [facility] Basophil percentage 0.40 mg/dL 0.20-1.00 [facility] Basophil percentageOrdered B y: Dr. Hale on 12-06-2022 Bilirubin [Mass/Vol] 0.40 mg/dL 0.20-1.00 [facility] Comment on above: For patients on eltr ombopag therapy, use of Dimension [place] TBIL is not recommended. Protein [Mass/Vol] 6.3 g/dL 6.4-8.2 [facility] Laboratory - Chemistry and C hemistry - challengeOrdered By: Dr. Hale on 12-06-2022 ALP [Catalytic activity/Vol] 159 U/L - [facility] ALT [Catalytic activity/Vol] 78 U/L [facility] Globulin (S) [Mass/Vol] 3.7 g/dL 2.2-4.[address] [facility] No Panel InformationOrdered By: Jesu Hale on 12-06-2022 3.7 g/dL 2.2-4.2 [facility] 159 U/L [facility] 78 U/L [facility] Serum or plasma albumin elvia urement (mass/volume)Ordered By: Dr. Hale on 12-06-2022 Albumin [Mass/Vol] 2.6 g/dL 3.2-5.0 [facility] Serum or plasma albumin/glob ulin mass ratioOrdered By: Dr. Hale on 12-06-2022 Albumin/Globulin [Mass ratio] 0.7 {ratio} 0.9-2.4 [facility] Thin prep Papanicolaou smear with manual screeningOrdered By: Dr. Hale on 12-06-2022 Thin prep Papanicolaou smear with manual screening 51 U/L 15-37 [facility] Blood manual differential co mment interpretation (narrative result)Ordered By: Dr. Hael on 12-05-2022 Manual differential comment Eric (Bld) [Interp] SCANNED [facility] Comment on above: LYMPHOPENIA NOTED Hypochromatic red blood cell detectionOrdered By: Dr. Hale on 12-05-2022 Hypochromia Ql (Bld) RARE [facility] Laboratory - Hematology and Cell countsOrdered By: Dr. Hale on 12-05-2022 Anisocytosis Ql (Bld) 2+ [facility] Macrocytes detectionOrdered By: Dr. Hale on 12-05-2022 Macrocytes Ql (Bld) 2+ [facility] No Panel InformationOrdered By: Jesu Hale on 12-05-2022 2+ [facility] Blood platelet adequacy dete ction by light microscopyOrdered By: Dr. Hale on 12-04-2022 Platelets LM Ql (Bld) MOD DEC ADEQ [facility] Laboratory - Microbiology an d Antimicrobial susceptibilityOrdered By: Dr. Joe on 12-04-2022 Bacteria identified Cx Nom (Bld) GNR lactose fundraising director [facility] Absolute lymphocyte countOrd ered By: Dr. Castaneda on 12-03-2022 Lymphocytes Auto (Unsp spec) [#/Vol] 0.42 10*3/uL 0.83-4.51 [facility] Basophil percentageOrdered B y: Sammie Castaneda on 12-03-2022 Basophil percentage 121 mg/dL 74-106 [facility] Basophil percentage 4.9 g/dL 6.4-8.2 [facility] Basophil percentage 0.50 mg/dL 0.20-1.00 [facility] Basophil percentage 138 mmol/L 136-145 [facility] Basophil percentage 3.4 mmol/L 3.5-5.1 [facility] Basophil percentage 112 mmol/L 98-107 [facility] Basophils (Bld) [#/Vol] 5.4 10*3/uL 4.4-11.0 [facility] Basophils (Bld) [#/Vol] 4.2 10*3/uL 2.0-7.7 [facility] Basophils/100 WBC (Bld) 78.1 % 47-70 [facility] Basophils/100 WBC (Bld) 0.7 % 0-5 [facility] Basophil percentageOrdered B y: Dr. Castaneda on 12-03-2022 Basophils/100 WBC (Bld) 0.2 % 0-1 [facility] Bilirubin [Mass/Vol] 0.50 mg/dL 0.20-1.00 [facility] Comment on above: For patients on eltr ombopag therapy, use of Dimension [place] TBIL is not recommended. Chloride [Moles/Vol] 112 mmol/L 98-107 [facility] Eosinophils/100 WBC (Bld) 0.7 % 0-5 [facility] Glucose [Mass/Vol] 121 mg/dL 74-106 [facility] Comment on above: Fasting Glucose resu lt from 100 to 125 mg/dL suggests IMPAIRED HOMEOSTASIS per A.D.A. criteria. Neutrophils (Bld) [#/Vol] 4.2 10*3/uL 2.0-7.7 [facility] Neutrophils/100 WBC (Bld) 78.1 % 47-70 [facility] Potassium [Moles/Vol] 3.4 mmol/L 3.5-5.1 [facility] Protein [Mass/Vol] 4.9 g/dL 6.4-8.2 [facility] Sodium [Moles/Vol] 138 mmol/L 136-145 [facility] WBC (Bld) [#/Vol] 5.4 10*3/uL 4.4-11.0 [facility] Blood erythrocytes count (nu mber/volume)Ordered By: Dr. Castaneda on 12-03-2022 RBC (Bld) [#/Vol] 2.50 10*6/uL 4.6-6.2 [facility] Blood hemoglobin measurement (mass/volume)Ordered By: Dr. Castaneda on 12-03-2022 Hemoglobin (Bld) [Mass/Vol] 8.7 g/dL 13.0-16.5 [facility] Blood lymphocytes/100 leukoc ytesOrdered By: Dr. Castaneda on 12-03-2022 Lymphocytes/100 WBC (Bld) 7.7 % 19-41 [facility] Blood manual differential co mment interpretation (narrative result)Ordered By: Dr. Castaneda on 12-03-2022 Manual differential comment Eric (Bld) [Interp] SCANNED [facility] Blood monocytes/100 leukocyt esOrdered By: Dr. Castaneda on 12-03-2022 Monocytes/100 WBC (Bld) 12.0 % 0-10 [facility] Blood platelet adequacy dete ction by light microscopyOrdered By: Dr. Castaneda on 12-03-2022 Platelets LM Ql (Bld) MKD DEC ADEQ [facility] Blood platelet mean volumeOr dered By: Dr. Castaneda on 12-03-2022 Platelet mean volume (Bld) [Entitic vol] 11.9 fL 6.2-12.0 [facility] COVID-19 virus antigen assay Ordered By: Sammie Castaneda on 12-03-2022 SARS-CoV-2 (COVID-19) Ag IA.rapid Ql (Resp) [facility] COVID-19 virus antigen assay Ordered By: Dr. Castaneda on 12-03-2022 SARS-CoV-2 (COVID-19) Ag IA.rapid Ql (Resp) [facility] Determination of erythrocyte mean corpuscular volume (MCV)Ordered By: Dr. Castaneda on 12-03-2022 MCV (RBC) [Entitic vol] 104.8 fL 80-94 [facility] Hematocrit Auto (Bld) [Volum e fraction]Ordered By: Dr. Castaneda on 12-03-2022 Hematocrit (Bld) [Volume fraction] 26.2 % 40-54 [facility] Laboratory - Chemistry and C hemistry - challengeOrdered By: Dr. Castaneda on 12-03-2022 ALP [Catalytic activity/Vol] 163 U/L 45-117 [facility] ALT [Catalytic activity/Vol] 94 U/L 16-61 [facility] CO2 [Moles/Vol] 21.0 mmol/L 21.0-32.0 [facility] Globulin (S) [Mass/Vol] 2.9 g/dL 2.2-4.2 [facility] Urea nitrogen/Creatinine [Mass ratio] 24.8 mg/mg 10-20 [facility] Laboratory - Hematology and Cell countsOrdered By: Dr. Castaneda on 12-03-2022 Erythrocyte distribution width (RBC) [Entitic vol] 60.0 fL 35.1-43.9 [facility] Erythrocyte distribution width (RBC) [Ratio] 15.5 % 11.6-14.6 [facility] Immature granulocytes/100 WBC (Bld) 1.300 % 0.0-0.9 [facility] Comment on above: IG% - Immature Granu locytes (promyelocytes, myelocytes and metamyelocytes) > 1% indicates that a LEFT SHIFT is Present. MCH (RBC) [Entitic mass] 34.8 pg 27.0-32.0 [facility] Nucleated RBC/100 W[facility] (Bld) [Ratio] 0 [facility] [Mass/Vol]Or dered By: Dr. Castaneda on 12-03-2022 MCHC (RBC) [Mass/Vol] 33.2 g/dL 32-36 [facility] No Panel InformationOrdered By: Dr. Castaneda on 12-03-2022 Estimated Creatinine Clearance Calc 21.83 ml/min [facility] Estimated GFR (MDRD) Amer 29 mL/min >60 [facility] Comment on above: GFR Calc Estimated GFR (MDRD) Non-Af Amer 24 mL/min >60 [facility] Comment on above: Non- GFR Calc No Panel InformationOrdered By: Sammie Castaneda on 12-03-2022 34.8 pg 27.0-32.0 [facility] 15.5 % 11.6-14.6 [facility] 60.0 fl 35.1-43.9 [facility] 1.300 % 0.0-0.9 [facility] 0 % 0-5 [facility] 24 mL/min >60 [facility] 29 mL/min >60 [facility] 21.83 ml/min [facility] 24.8 RATIO 10-20 [facility] 2.9 g/dL 2.2-4.2 [facility] 163 U/L 45-117 [facility] 94 U/L 16-61 [facility] 21.0 mmol/L 21.0-32.0 [facility] Platelets bldOrdered By: Dr. Castaneda on 12-03-2022 Platelets (Bld) [#/Vol] 63 10*3/uL 150-450 [facility] Serum or plasma albumin elvia urement (mass/volume)Ordered By: Dr. Castaneda on 12-03-2022 Albumin [Mass/Vol] 2.0 g/dL 3.2-5.0 [facility] Serum or plasma albumin/glob ulin mass ratioOrdered By: Dr. Castaneda on 12-03-2022 Albumin/Globulin [Mass ratio] 0.7 {ratio} 0.9-2.4 [facility] Serum or plasma calcium elvia urement (mass/volume)Ordered By: Dr. Castaneda on 12-03-2022 Calcium [Mass/Vol] 8.2 mg/dL 8.5-10.1 [facility] Serum or plasma creatinine m easurement (mass/volume)Ordered By: Dr. Castaneda on 12-03-2022 Creatinine [Mass/Vol] 2.74 mg/dL 0.70-1.30 [facility] Comment on above: The validity of the calculated GFR & GFRAA in patients over 70 years has not been determined. Clinical correlation is essential. Serum or plasma urea nitroge n measurement (mass/volume)Ordered By: Dr. Castaneda on 12-03-2022 Urea nitrogen [Mass/Vol] 68 mg/dL 7-18 [facility] Thin prep Papanicolaou smear with manual screeningOrdered By: Dr. Castaneda on 12-03-2022 Thin prep Papanicolaou smear with manual screening 161 U/L 15-37 [facility] Thin prep Papanicolaou smear with manual screening 5 5-15 [facility] Basophil percentageOrdered B y: Kvng James on 12-02-2022 Basophil percentage 104 U/L 87-241 [facility] Basophil percentageOrdered B y: Dr. James on 12-02-2022 LDH [Catalytic activity/Vol] 104 U/L 87-241 [facility] Laboratory - Chemistry and C hemistry - challengeOrdered By: Dr. James on 12-02-2022 CK [Catalytic activity/Vol] 32 U/L 39-308 [facility] No Panel InformationOrdered By: Dr. James on 12-02-2022 Haptoglobin 307 mg/dL 38-329 [facility] Comment on above: Performed at: - [address] [id number] Director: Amaury Raya PhD, Phone: [phone] No Panel InformationOrdered By: Kvng James on 12-02-2022 32 U/L 39-308 [facility] 307 mg/dL 38-329 [facility] Blood anil cells detection b y light microscopyOrdered By: Dr. Castaneda on 12-01-2022 Anil cells LM Ql (Bld) 1+ [facility] Hypochromatic red blood cell detectionOrdered By: Dr. Castaneda on 12-01-2022 Hypochromia Ql (Bld) 1+ [facility] Laboratory - Hematology and Cell countsOrdered By: Dr. Castaneda on 12-01-2022 Anisocytosis Ql (Bld) 1+ [facility] Laboratory - Microbiology an d Antimicrobial susceptibilityOrdered By: Dr. Joe on 12-01-2022 Bacteria identified Cx Nom (Bld) Klebsiella pneumoniae sp pneum [facility] Macrocytes detectionOrdered By: Dr. Castaneda on 12-01-2022 Macrocytes Ql (Bld) 1+ [facility] No Panel InformationOrdered By: Sammie Castaneda on 12-01-2022 1+ [facility] Urine creatinine measurement (mass/volume)Ordered By: Dr. James on 12-01-2022 Creatinine (U) [Mass/Vol] 49.20 mg/dL NO RANGE EST. [facility] Urine protein measurement (m ass/volume)Ordered By: Dr. James on 12-01-2022 Protein (U) [Mass/Vol] 24.2 mg/dL 0.0-11.8 [facility] Urine protein/creatinine mas s ratioOrdered By: Dr. James on 12-01-2022 Protein/Creatinine (U) [Mass ratio] 492 mg/g CRE 0-200 [facility] Laboratory - Chemistry and C hemistry - challengeOrdered By: Dr. Castaneda on 11-30-2022 Sodium (U) [Moles/Vol] 34 mmol/L Not Establ. [facility] Free T4 [Mass/Vol] 1.20 ng/dL 0.76-1.46 [facility] Natriuretic peptide B (Bld) [Mass/Vol] 1355.2 pg/mL 0-100 [facility] No Panel InformationOrdered By: Jakob Alexander on 11-30-2022 Streptococcus pneumoniae Antigen (M [facility] No Panel InformationOrdered By: Dr. Castaneda on 11-30-2022 Urine Potassium 87.0 mmol/L Not Establ. [facility] Urine Urea Nitrogen 373 mg/dL NO RANGE EST. [facility] No Panel InformationOrdered By: Sammie Castaneda on 11-30-2022 34 mmol/L Not Establ. [facility] 87.0 mmol/L Not Establ. [facility] 373 mg/dL NO RANGE EST. [facility] 1355.2 pg/mL 0-100 [facility] 1.20 ng/dL 0.76-1.46 [facility] No Panel InformationOrdered By: Dr. Alexander on 11-30-2022 Streptococcus pneumoniae Antigen (M [facility] Review by pathologistOrdered By: Dr. Castaneda on 11-30-2022 Pathologist review Eric (Unsp spec) [Interp] Reviewed [facility] Comment on above: Previous reported re sult: Katarzyna varghese Edited by: RGOFER on 12/02/22:1328Pancytopenia.Leukopenia Macrocytic anemia.Marked ThrombocytopeniaClinical correlation necessary.Orestes Fraire M.D. 12/02/22 AMENDED REPORT 12/02/22 1328 PATH REV previously reported as: Katarzyna varghese Thin prep Papanicolaou smear with manual screeningOrdered By: Dr. Castaneda on 11-30-2022 Thin prep Papanicolaou smear with manual screening 92 mmol/L Not Establ. [facility] Urine Legionella pneumophila antigen detectionOrdered By: Jakob Alexander on 11-30-2022 L. pneumophila Ag Ql (U) [facility] Urine Legionella pneumophila antigen detectionOrdered By: Dr. Alexander on 11-30-2022 L. pneumophila Ag Ql (U) [facility] Urine osmolality measurement Ordered By: Dr. Castaneda on 11-30-2022 Osmolality (U) [Osmolality] 361 mOsm/KG >50 [facility] Comment on above: Normal Urine Referen ce Ranges Random: 50 - 1200 mOsm/kg H20 depending on fluid intake Random: >850 mOsm/kg after 12 hour fluid restriction 24 hour: ~300 - 900 mOsm/kg H2O Absolute lymphocyte countOrd ered By: Dr. Joe on 11-29-2022 Lymphocytes Auto (Unsp spec) [#/Vol] 0.21 10*3/uL 0.83-4.51 [facility] Basophil percentageOrdered B y: Dr. Joe on 11-29-2022 Basophil percentage 0 SEEN /hpf 0-5 [facility] Basophils/100 WBC (Bld) 0.5 % 0-1 [facility] Bilirubin [Mass/Vol] 0.90 mg/dL 0.20-1.00 [facility] Comment on above: For patients on eltr ombopag therapy, use of Dimension [place] TBIL is not recommended. Chloride [Moles/Vol] 111 mmol/L 98-107 [facility] Eosinophils/100 WBC (Bld) 0.0 % 0-5 [facility] [facility] Glucose [Mass/Vol] 119 mg/dL 74-106 [facility] Comment on above: Fasting Glucose resu lt from 100 to 125 mg/dL suggests IMPAIRED HOMEOSTASIS per A.D.A. criteria. Lactate [Moles/Vol] 1.7 mmol/L 0.4-2.0 [facility] Neutrophils (Bld) [#/Vol] 1.7 10*3/uL 2.0-7.7 [facility] Neutrophils/100 WBC (Bld) 82.6 % 47-70 [facility] Potassium [Moles/Vol] 4.9 mmol/L 3.5-5.1 [facility] Protein [Mass/Vol] 5.4 g/dL 6.4-8.2 [facility] Sodium [Moles/Vol] 140 mmol/L 136-145 [facility] WBC (Bld) [#/Vol] 2.0 10*3/uL 4.4-11.0 [facility] Basophil percentageOrdered B y: Lupe Joe on 11-29-2022 Basophil percentage 1.7 mmol/L 0.4-2.0 [facility] Bilirubin Test strip Ql (U)O rdered By: Dr. Joe on 11-29-2022 Bilirubin Ql (U) Negative Negative [facility] Blood band neutrophil count as percentage of total leukocytesOrdered By: Dr. Alexander on 11-29-2022 Band form neutrophils/100 WBC (Bld) 20 % 0-5 [facility] Blood erythrocytes count (nu mber/volume)Ordered By: Dr. Joe on 11-29-2022 RBC (Bld) [#/Vol] 2.31 10*6/uL 4.6-6.2 [facility] Blood hemoglobin measurement (mass/volume)Ordered By: Dr. Joe on 11-29-2022 Hemoglobin (Bld) [Mass/Vol] 8.1 g/dL 13.0-16.5 [facility] Blood lymphocytes/100 leukoc ytesOrdered By: Dr. Alexander on 11-29-2022 Lymphocytes/100 WBC (Bld) 18 % 19-41 [facility] Blood lymphocytes/100 leukoc ytesOrdered By: Dr. Joe on 11-29-2022 Lymphocytes/100 WBC (Bld) 10.4 % 19-41 [facility] Blood metamyelocytes/100 khurram kocytesOrdered By: Dr. Alexander on 11-29-2022 Metamyelocytes/100 WBC (Bld) 17 % 0-1 [facility] Blood monocytes/100 leukocyt esOrdered By: Dr. Alexander on 11-29-2022 Monocytes/100 WBC (Bld) 6 % 0-10 [facility] Blood monocytes/100 leukocyt esOrdered By: Dr. Joe on 11-29-2022 Monocytes/100 WBC (Bld) 6.5 % 0-10 [facility] Blood platelet adequacy dete ction by light microscopyOrdered By: Dr. Joe on 11-29-2022 Platelets LM Ql (Bld) MOD DEC ADEQ [facility] Blood platelet mean volumeOr dered By: Dr. Joe on 11-29-2022 Platelet mean volume (Bld) [Entitic vol] 10.6 fL 6.2-12.0 [facility] Blood segmented neutrophils/ [address]: [address] Alexander on 11-29-2022 Segmented neutrophils/100 WBC (Bld) 39 % 47-70 [facility] Determination of erythrocyte mean corpuscular volume (MCV)Ordered By: Dr. Joe on 11-29-2022 MCV (RBC) [Entitic vol] 108.2 fL 80-94 [facility] Hematocrit Auto (Bld) [Volum e fraction]Ordered By: Dr. Joe on 11-29-2022 Hematocrit (Bld) [Volume fraction] 25.0 % 40-54 [facility] Influenza virus A and B and SARS-CoV-2 (COVID-19) Ag panel - Upper respiratory specimOrdered By: Dr. Joe on 11-29-2022 SARS-CoV-2 (COVID-19) RNA SANTANA+probe Ql (Resp) [facility] Iron measurement (mass/mass) Ordered By: Dr. Alexander on 11-29-2022 Iron (Unsp spec) [Mass/Mass] 6 ug/dL 65-175 [facility] Ketones Test strip Ql (U)Ord ered By: Dr. Joe on 11-29-2022 Ketones Ql (U) Negative Negative [facility] Laboratory - Chemistry and C hemistry - challengeOrdered By: Dr. Alexander on 11-29-2022 Cobalamin (Vitamin B12) [Mass/Vol] 228 pg/mL 211-911 [facility] Laboratory - Chemistry and C hemistry - challengeOrdered By: Dr. Joe on 11-29-2022 ALP [Catalytic activity/Vol] 68 U/L 45-117 [facility] ALT [Catalytic activity/Vol] 17 U/L 16-61 [facility] CO2 [Moles/Vol] 22.0 mmol/L 21.0-32.0 [facility] Globulin (S) [Mass/Vol] 2.4 g/dL 2.2-4.2 [facility] Urea nitrogen/Creatinine [Mass ratio] 16.1 mg/mg 10-20 [facility] Laboratory - Hematology and Cell countsOrdered By: Dr. Joe on 11-29-2022 Anisocytosis Ql (Bld) 1+ [facility] Erythrocyte distribution width (RBC) [Entitic vol] 62.1 fL 35.1-43.9 [facility] Erythrocyte distribution width (RBC) [Ratio] 15.7 % 11.6-14.6 [facility] Immature granulocytes/100 WBC (Bld) 0.000 % 0.0-0.9 [facility] Comment on above: IG% - Immature Granu locytes (promyelocytes, myelocytes and metamyelocytes) > 1% indicates that a LEFT SHIFT is Present. MCH (RBC) [Entitic mass] 35.1 pg 27.0-32.0 [facility] Nucleated RBC/100 WBC (Bld) [Ratio] 0 % 0-5 [facility] Laboratory - Microbiology an d Antimicrobial susceptibilityOrdered By: Lupe Joe on 11-29-2022 Bacteria identified Cx Nom (Bld) GNR lactose fundraising director [facility] Bacteria identified Cx Nom (Bld) Klebsiella pneumoniae sp pneum [facility] MCHC Auto (RBC) [Mass/Vol]Or dered By: Dr. Joe on 11-29-2022 MCHC (RBC) [Mass/Vol] 32.4 g/dL 32-36 [facility] Macrocytes detectionOrdered By: Dr. Joe on 11-29-2022 Macrocytes Ql (Bld) 2+ [facility] Mucus LM Ql (Urine sed)Order ed By: Dr. Joe on 11-29-2022 Mucus Ql (Urine sed) 0 SEEN /hpf [facility] Nitrite Test strip Ql (U)Ord ered By: Dr. Joe on 11-29-2022 Nitrite Ql (U) Negative Negative [facility] No Panel InformationOrdered By: Dr. Alexander on 11-29-2022 Troponin I High Sensitivity 92 pg/mL 3.0-78.0 [facility] Comment on above: Please Note: New Linnette t Units and Gender Specific Reference Ranges. For more information see Policy Stat Procedure [place] High Sensitivity Troponin (TNIH) and attachments. Thyroid Stimulating Hormone (TSH) 0.75 uIU/mL 0.358-3.74 [facility] Total Iron Binding Capacity 187 ug/dL 250-450 [facility] No Panel InformationOrdered By: Jakob Alexander on 11-29-2022 92 pg/mL 3.0-78.0 [facility] 0.75 uIU/mL 0.358-3.74 [facility] 228 pg/mL 211-911 [facility] 187 ug/dL 250-450 [facility] No Panel InformationOrdered By: Lupe Joe on 11-29-2022 GNR lactose fundraising director [facility] Klebsiella pneumonia e sp pneum [facility] < 3.0 mg/dL [facility] No Panel InformationOrdered By: Dr. Joe on 11-29-2022 Estimated Creatinine Clearance Calc 23.11 ml/min [facility] Estimated GFR (MDRD) Amer 30 mL/min >60 [facility] Comment on above: GFR Calc Estimated GFR (MDRD) Non-Af Amer 25 mL/min >60 [facility] Comment on above: Non- GFR Calc Ethyl Alcohol Level < 3.0 mg/dL [facility] Comment on above: The serum:whole bloo d ethanol ratio is approximately 1.14and varies slightly with hematocrit. Medical Alcohol reference interval and critical value innon-tolerant individuals; 50 - 100 Impairment 100 Intoxication 100 - 250 Severe Poisoning 250 - 400 Deep/possible fatal coma Troponin I High Sensitivity 134 pg/mL 3.0-78.0 [facility] Comment on above: Critical Result(s) C alled at: 04:06:34 11/29/2022 by: JEANIE Larios RN ER. Results read back by same. Please Note: New Test Units and Gender Specific Reference Ranges. For more information see Policy Stat Procedure [place] High Sensitivity Troponin (TNIH) and attachments. Ovalocyte detectionOrdered B y: Dr. Alexander on 11-29-2022 Ovalocytes LM Ql (Bld) RARE [facility] Platelets bldOrdered By: Dr. Joe on 11-29-2022 Platelets (Bld) [#/Vol] 55 10*3/uL 150-450 [facility] Protein Test strip Ql (U)Ord ered By: Dr. Joe on 11-29-2022 Protein Ql (U) 100 mg/dl Negative [facility] Review by pathologistOrdered By: Dr. Joe on 11-29-2022 Pathologist review Eric (Unsp spec) [Interp] May foll [facility] Serum or plasma albumin elvia urement (mass/volume)Ordered By: Dr. Joe on 11-29-2022 Albumin [Mass/Vol] 3.0 g/dL 3.2-5.0 [facility] Serum or plasma albumin/glob ulin mass ratioOrdered By: Dr. Joe on 11-29-2022 Albumin/Globulin [Mass ratio] 1.2 {ratio} 0.9-2.4 [facility] Serum or plasma calcium elvia urement (mass/volume)Ordered By: Dr. Joe on 11-29-2022 Calcium [Mass/Vol] 8.3 mg/dL 8.5-10.1 [facility] Serum or plasma creatinine m easurement (mass/volume)Ordered By: Dr. Joe on 11-29-2022 Creatinine [Mass/Vol] 2.67 mg/dL 0.70-1.30 [facility] Comment on above: The validity of the calculated GFR & GFRAA in patients over 70 years has not been determined. Clinical correlation is essential. Serum or plasma ferritin pedro luis surement (mass/volume)Ordered By: Dr. Alexander on 11-29-2022 Ferritin [Mass/Vol] 578 ng/mL 26-388 [facility] Serum or plasma folate measu rement (mass/volume)Ordered By: Dr. Alexander on 11-29-2022 Folate [Mass/Vol] 5.50 ng/mL 3.1-55.4 [facility] Serum or plasma iron saturat ion measurement (mass fraction)Ordered By: Dr. Alexander on 11-29-2022 Iron saturation [Mass fraction] 3.2 % 15.0-55.0 [facility] Serum or plasma urea nitroge n measurement (mass/volume)Ordered By: Dr. Joe on 11-29-2022 Urea nitrogen [Mass/Vol] 43 mg/dL 7-18 [facility] Squamous epithelial cells de tection in urine sediment by light microscopyOrdered By: Dr. Joe on 11-29-2022 Epithelial cells.squamous LM Ql (Urine sed) 0 SEEN /hpf 0-5 [facility] Thin prep Papanicolaou smear with manual screeningOrdered By: Dr. Alexander on 11-29-2022 Thin prep Papanicolaou smear with manual screening B[employer] [facility] Comment on above: Previous reported re sult: 1+ Edited by: LEEROY on 11/29/22:0742 AMENDED REPORT 11/29/22 0742 MICROCYTES previously reported as: 1+ Thin prep Papanicolaou smear with manual screeningOrdered By: Dr. Joe on 11-29-2022 Thin prep Papanicolaou smear with manual screening 35 U/L 15-37 [facility] Thin prep Papanicolaou smear with manual screening 7 5-15 [facility] Total cell countOrdered By: Dr. Alexander on 11-29-2022 Cells counted Molgen (Bld/Tiss) [#] 100 MANUAL DIFF [facility] Urine blood detectionOrdered By: Dr. Joe on 11-29-2022 RBC Ql (U) Negative Negative [facility] RBC Ql (U) 0 SEEN /hpf 0-5 [facility] Urine clarityOrdered By: Dr. Joe on 11-29-2022 Clarity (U) Clear Clear [facility] Urine color determinationOrd ered By: Dr. Joe on 11-29-2022 Color (U) Yellow Yellow [facility] Urine glucose detectionOrder ed By: Dr. Joe on 11-29-2022 Glucose Ql (U) Normal mg/dl Normal [facility] Urine leukocyte esterase det ection by dipstickOrdered By: Dr. Joe on 11-29-2022 Leukocyte esterase Test strip Ql (U) Negative Negative [facility] Urine pHOrdered By: Dr. Rossana carballo on 11-29-2022 pH (U) 5.0 [pH] 5.0 - 8.0 [facility] Urine sediment bacteria coun t by microscopy (number/high power field)Ordered By: Dr. oJe on 11-29-2022 Bacteria LM.HPF (Urine sed) [#/Area] 1 /[HPF] None Seen [facility] Urine specific gravity measu rementOrdered By: Dr. Joe on 11-29-2022 Specific gravity (U) [Rel density] 1.015 1.002-1.03 0 [facility] Urobilinogen Auto test strip Ql (U)Ordered By: Dr. Joe on 11-29-2022 Urobilinogen Ql (U) Normal mg/dl Normal [facility] No Panel InformationOrdered By: Teresa Pop on 10-17-2022 Thyroid Stimulating Hormone (TSH) 1.80 uIU/mL 0.358-3.74 [facility] 1.80 uIU/mL 0.358-3.74 [facility] Basophil percentageOrdered B y: Dr. Santacruz on 08-23-2022 Chloride [Moles/Vol] 113 mmol/L 98-107 [facility] Cholesterol [Mass/Vol] 152 mg/dL <200 [facility] Comment on above: <200 mg/dL Desirable 200-240 mg/dL Borderline >240 mg/dL High Risk Glucose [Mass/Vol] 101 mg/dL 74-106 [facility] Comment on above: Fasting Glucose resu lt from 100 to 125 mg/dL suggests IMPAIRED HOMEOSTASIS per A.D.A. criteria. Potassium [Moles/Vol] 4.7 mmol/L 3.5-5.1 [facility] Sodium [Moles/Vol] 141 mmol/L 136-145 [facility] Triglyceride [Mass/Vol] 63 mg/dL <199 [facility] Comment on above: The drugs N-Acetylcy steine and Metamizole may falsely depress this assay.Serum Triglycerides Reference Interval Normal <150 mg/dL Borderline high 150 - 199 mg/dL High 200 - 499 mg/dL Very High > or = 500 mg/dL Laboratory - Chemistry and C hemistry - challengeOrdered By: Dr. Santacruz on 08-23-2022 ALT [Catalytic activity/Vol] 16 U/L 16-61 [facility] CO2 [Moles/Vol] 24.0 mmol/L 21.0-32.0 [facility] Urea nitrogen/Creatinine [Mass ratio] 19.3 mg/mg 10-20 [facility] No Panel InformationOrdered By: Dr. Santacruz on 08-23-2022 Estimated GFR (MDRD) Amer 33 mL/min >60 [facility] Comment on above: GFR Calc Estimated GFR (MDRD) Non-Af Amer 27 mL/min >60 [facility] Comment on above: Non- GFR Calc Serum or plasma calcium elvia urement (mass/volume)Ordered By: Dr. Santacruz on 08-23-2022 Calcium [Mass/Vol] 8.9 mg/dL 8.5-10.1 [facility] Serum or plasma cholesterol in HDL measurement (mass/volume)Ordered By: Dr. Santacruz on 08-23-2022 Cholesterol in HDL [Mass/Vol] 84 mg/dL >40 [facility] Comment on above: The drugs N-Acetylcy steine and Metamizole may falsely depress this assay. Reference Range HDL <40 mg/dL Low HDL Cholesterol HDL >or= 60 mg/dL High HDL Cholesterol Serum or plasma cholesterol in VLDL measurement (mass/volume)Ordered By: Dr. Santacruz on 08-23-2022 Cholesterol in VLDL [Mass/Vol] 13 mg/dL 5-40 [facility] Serum or plasma creatinine m easurement (mass/volume)Ordered By: Dr. Santacruz on 08-23-2022 Creatinine [Mass/Vol] 2.44 mg/dL 0.70-1.30 [facility] Comment on above: The validity of the calculated GFR & GFRAA in patients over 70 years has not been determined. Clinical correlation is essential. Serum or plasma low density lipoprotein (LDL) cholesterol measurement (mass/volume)Ordered By: Dr. Santacruz on 08-23-2022 Cholesterol in LDL [Mass/Vol] 55 mg/dL 0-130 [facility] Serum or plasma urea nitroge n measurement (mass/volume)Ordered By: Dr. Santacruz on 08-23-2022 Urea nitrogen [Mass/Vol] 47 mg/dL 7-18 [facility] Thin prep Papanicolaou smear with manual screeningOrdered By: Dr. Santacruz on 08-23-2022 Thin prep Papanicolaou smear with manual screening 22 U/L 15-37 [facility] Thin prep Papanicolaou smear with manual screening 4 5-15 [facility] Absolute lymphocyte countOrd ered By: Dr. Cazares on 05-20-2022 Lymphocytes Auto (Unsp spec) [#/Vol] 0.54 10*3/uL 0.83-4.51 [facility] Basophil percentageOrdered B y: Dr. Cazares on 05-20-2022 Basophils/100 WBC (Bld) 1.0 % 0-[address] [facility] Chloride [Moles/Vol] 110 mmol/L 98-107 [facility] Eosinophils/100 WBC (Bld) 2.0 % 0-5 [facility] Glucose [Mass/Vol] 103 mg/dL 74-106 [facility] Comment on above: Fasting Glucose resu lt from 100 to 125 mg/dL suggests IMPAIRED HOMEOSTASIS per A.D.A. criteria. Neutrophils (Bld) [#/Vol] 2.9 10*3/uL 2.0-7.7 [facility] Neutrophils/100 WBC (Bld) 72.5 % 47-70 [facility] Potassium [Moles/Vol] 4.8 mmol/L 3.5-5.1 [facility] Sodium [Moles/Vol] 141 mmol/L 136-145 [facility] WBC (Bld) [#/Vol] 4.0 10*3/uL 4.4-11.0 [facility] Blood erythrocytes count (nu mber/volume)Ordered By: Dr. Cazares on 05-20-2022 RBC (Bld) [#/Vol] 3.14 10*6/uL 4.6-6.2 [facility] Blood hemoglobin measurement (mass/volume)Ordered By: Dr. Cazares on 05-20-2022 Hemoglobin (Bld) [Mass/Vol] 11.6 g/dL 13.0-16.5 [facility] Blood lymphocytes/100 leukoc ytesOrdered By: Dr. Cazares on 05-20-2022 Lymphocytes/100 WBC (Bld) 13.4 % 19-41 [facility] Blood manual differential co mment interpretation (narrative result)Ordered By: Dr. Cazares on 05-20-2022 Manual differential comment Eric (Bld) [Interp] See comment [facility] Comment on above: LYMPHOPENIA NOTED Blood monocytes/100 leukocyt esOrdered By: [address] Cazares on 05-20-2022 Monocytes/100 WBC (Bld) 10.9 % 0-10 [facility] Blood platelet mean volumeOr dered By: Dr. Cazares on 05-20-2022 Platelet mean volume (Bld) [Entitic vol] 10.8 fL 6.2-12.0 [facility] Determination of erythrocyte mean corpuscular volume (MCV)Ordered By: Dr. Cazares on 05-20-2022 MCV (RBC) [Entitic vol] 108.6 fL 80-94 [facility] Hematocrit Auto (Bld) [Volum e fraction]Ordered By: Dr. Cazares on 05-20-2022 Hematocrit (Bld) [Volume fraction] 34.1 % 40-54 [facility] Laboratory - Chemistry and C hemistry - challengeOrdered By: Dr. Cazares on 05-20-2022 CO2 [Moles/Vol] 26.0 mmol/L 21.0-32.0 [facility] Urea nitrogen/Creatinine [Mass ratio] 16.5 mg/mg 10-20 [facility] Laboratory - Hematology and Cell countsOrdered By: Dr. Cazares on 05-20-2022 Erythrocyte distribution width (RBC) [Entitic vol] 58.4 fL 35.1-43.9 [facility] Erythrocyte distribution width (RBC) [Ratio] 14.6 % 11.6-14.6 [facility] Immature granulocytes/100 WBC (Bld) 0.200 % 0.0-0.9 [facility] Comment on above: IG% - Immature Granu locytes (promyelocytes, myelocytes and metamyelocytes) > 1% indicates that a LEFT SHIFT is Present. MCH (RBC) [Entitic mass] 36.9 pg 27.0-32.0 [facility] Nucleated RBC/100 WBC (Bld) [Ratio] 0 % 0-5 [facility] MCHC Auto (RBC) [Mass/Vol]Or dered By: Dr. Cazares on 05-20-2022 MCHC (RBC) [Mass/Vol] 34.0 g/dL 32-36 [facility] No Panel InformationOrdered By: Dr. Cazares on 05-20-2022 Estimated Creatinine Clearance Calc 30.46 ml/min [facility] Estimated GFR (MDRD) Amer 40 mL/min >60 [facility] Comment on above: GFR Calc Estimated GFR (MDRD) Non-Af Amer 33 mL/min >60 [facility] Comment on above: Non- GFR Calc Platelets bldOrdered By: Dr. Cazares on 05-20-2022 Platelets (Bld) [#/Vol] 107 10*3/uL 150-450 [facility] Review by pathologistOrdered By: Dr. Cazares on 05-20-2022 Pathologist review Eric (Unsp spec) [Interp] Reviewed [facility] Comment on above: Previous reported re sult: Katarzyna varghese Edited by: RGOFER on 05/22/22:0933Pancytopenia.Leukopenia Macrocytic anemia.Mild ThrombocytopeniaClinical correlation necessary.Orestes Fraire M.D. 05/22/22 AMENDED REPORT 05/22/22 0933 PATH REV previously reported as: Katarzyna varghese Serum or plasma calcium elvia urement (mass/volume)Ordered By: Dr. Cazares on 05-20-2022 Calcium [Mass/Vol] 9.0 mg/dL 8.5-10.1 [facility] Serum or plasma creatinine m easurement (mass/volume)Ordered By: Dr. Cazares on 05-20-2022 Creatinine [Mass/Vol] 2.06 mg/dL 0.70-1.30 [facility] Comment on above: The validity of the calculated GFR & GFRAA in patients over 70 years has not been determined. Clinical correlation is essential. Serum or plasma urea nitroge n measurement (mass/volume)Ordered By: Dr. Cazares on 05-20-2022 Urea nitrogen [Mass/Vol] 34 mg/dL 7-18 [facility] Thin prep Papanicolaou smear with manual screeningOrdered By: Dr. Cazares on 05-20-2022 Thin prep Papanicolaou smear with manual screening 5 5-15 [facility] Absolute lymphocyte counton 03-27-2022 Lymphocytes Auto (Unsp spec) [#/Vol] 0.60 10*3/uL 0.83-4.51 [facility] Work Phone: [phone] Basophil percentageon 2021 Basophils/100 WBC (Bld) 0.7 % 0-1 [facility] Work Phone: [phone] Bilirubin [Mass/Vol] 0.60 mg/dL 0.20-1.00 [facility] Work Phone: [phone] Comment on above: For patients on eltr ombopag therapy, use of Dimension [place] TBIL is not recommended. Chloride [Moles/Vol] 113 mmol/L 98-107 [facility] Work Phone: Eosinophils/100 WBC (Bld) 2.7 % 0-5 [facility] Work Phone: [phone] Glucose [Mass/Vol] 100 mg/dL 74-106 [facility] Work Phone: Comment on above: Fasting Glucose resu lt from 100 to 125 mg/dL suggests IMPAIRED HOMEOSTASIS per A.D.A. criteria. Neutrophils (Bld) [#/Vol] 2.9 10*3/uL 2.0-7.7 [facility] Work Phone: Neutrophils/100 WBC (Bld) 71.1 % 47-70 [facility] Work Phone: [phone] Potassium [Moles/Vol] 5.2 mmol/L 3.5-5.1 [facility] Work Phone: Protein [Mass/Vol] 6.5 g/dL 6.4-8.2 [facility] Work Phone: [phone] Sodium [Moles/Vol] 144 mmol/L 136-145 [facility] Work Phone: [phone] WBC (Bld) [#/Vol] 4.1 10*3/uL 4.4-11.0 [facility] Work Phone: [phone] Blood erythrocytes count (nu mber/volume)on 03-27-2022 RBC (Bld) [#/Vol] 3.18 10*6/uL 4.6-6.2 [facility] Work Phone: [phone] Blood hemoglobin measurement (mass/volume)on 03-27-2022 Hemoglobin (Bld) [Mass/Vol] 11.2 g/dL 13.0-16.5 [facility] Work Phone: [phone] Blood lymphocytes/100 leukoc yteson 03-27-2022 Lymphocytes/100 WBC (Bld) 14.6 % 19-41 [facility] Work Phone: [phone] Blood manual differential co mment interpretation (narrative result)Ordered By: Mathieu Mcintyre on 03-27-2022 Manual differential comment Eric (Bld) [Interp] SCANNED [facility] Comment on above: LYMPHOPENIA NOTED Blood monocytes/100 leukocyt eson 03-27-2022 Monocytes/100 WBC (Bld) 10.7 % 0-10 [facility] Work Phone: [phone] Blood platelet mean volumeon 03-27-2022 Platelet mean volume (Bld) [Entitic vol] 10.2 fL 6.2-12.0 [facility] Work Phone: [phone] Determination of erythrocyte mean corpuscular volume (MCV)on 03-27-2022 MCV (RBC) [Entitic vol] 112.6 fL 80-94 [facility] Work Phone: [phone] Hematocrit Auto (Bld) [Volum e fraction]on 03-27-2022 Hematocrit (Bld) [Volume fraction] 35.8 % 40-54 [facility] Work Phone: Iron measurement (mass/mass) on 03-27-2022 Iron (Unsp spec) [Mass/Mass] 80 ug/dL 65-175 [facility] Work Phone: [phone] Laboratory - Chemistry and C hemistry - challengeon 03-27-2022 ALP [Catalytic activity/Vol] 102 U/L 45-117 [facility] Work Phone: ALT [Catalytic activity/Vol] 15 U/L 16-61 [facility] Work Phone: [phone] CO2 [Moles/Vol] 26.0 mmol/L 21.0-32.0 [facility] Work Phone: [phone] Globulin (S) [Mass/Vol] 2.8 g/dL 2.2-4.2 [facility] Work Phone: [phone] Urea nitrogen/Creatinine [Mass ratio] 17.9 mg/mg 10-20 [facility] Work Phone: Laboratory - Chemistry and C hemistry - challengeOrdered By: Mathieu Mcintyre on 03-27-2022 Cobalamin (Vitamin B12) [Mass/Vol] 260 pg/mL 211-911 [facility] Laboratory - Hematology and Cell countson 03-27-2022 Erythrocyte distribution width (RBC) [Entitic vol] 63.0 fL 35.1-43.9 [facility] Work Phone: [phone] Erythrocyte distribution width (RBC) [Ratio] 14.9 % 11.6-14.6 [facility] Work Phone: [phone] Immature granulocytes/100 WBC (Bld) 0.200 % 0.0-0.9 [facility] Work Phone: [phone] Comment on above: IG% - Immature Granu locytes (promyelocytes, myelocytes and metamyelocytes) > 1% indicates that a LEFT SHIFT is Present. MCH (RBC) [Entitic mass] 35.2 pg 27.0-32.0 [facility] Work Phone: [phone] Nucleated RBC/100 WBC (Bld) [Ratio] 0 % 0-5 [facility] Work Phone: MCHC Auto (RBC) [Mass/Vol]on 03-27-2022 MCHC (RBC) [Mass/Vol] 31.3 g/dL 32-36 [facility] Work Phone: No Panel Informationon 03-27 Estimated GFR (MDRD) Amer 37 mL/min >60 [facility] Work Phone: Comment on above: GFR Calc Estimated GFR (MDRD) Non-Af Amer 30 mL/min >60 [facility] Work Phone: Comment on above: Non- GFR Calc Total Iron Binding Capacity 255 ug/dL 250-450 [facility] Work Phone: No Panel InformationOrdered By: Mathieu Mcintyre on 03-27-2022 Miscellaneous Test See comment [facility] Comment on above: TEST RESULT [facility] panel: Leukemia/LymphomaFlow InterpretationNo significant immunophenotypic abnormality detectedClinical [...] CD3 NormalCD4 Normal CD5 NormalCD7 Normal CD8 EyctplQW89 Normal CD11b KqvzqiPZ14 Normal CD14 IjdakcHH19 Normal CD19 AtmkreSP02 Normal CD33 Normal CD34 Normal CD38 VladjpOQ51 Normal CD56 LixrcuVX74 Normal CD117 NormalHLA-DR Normal KAPPA NormalLAMBDA Normal CD64 NormalResulting Path Name Moustapha Butcher M.D. Ph.DComment: Each antibody in this assay was utilized to assess for potential abnormalities of studied cell populations or to characterize identified abnormalities.This test was developed and its performance characteristics determined by [employer]. It has not been cleared or approved by the U.S. Food and Drug Administration.The FDA has determined that such clearance or approval is not necessary. This test is used for clinical purposes. It should not be regarded as investigational or for research. ____ [facility]FOR[facility] AT [facility]. ORIGINAL REPORT ON FILE IN LAB [...] FISH RESULTS: CCND1/IGH: NORMAL . nuc javad 11q13(REWQ6n7),14q32(IGHx2)[100] ABIMAEL: NORMAL nuc javad 11q22.3(ATMx2)[100] . 12cen: NORMAL . nuc javad 12cen(L71K6g9)[100] . 13q: NORMAL . nuc javad 13q14.3(DLEUx2),13q34(ZMHD1h5)[100] . TP53: NORMAL . nuc javad 17p13.1(TP53x2)[100] This analysis is limited to abnormalities detectableby the specific probes included in the study. FISH resultsshould be interpreted within the context of a fullcytogenetic analysis and hematologic evaluation. REFERENCES:. [place] Nena,(2013) Adv Exp Med Biol 792:193-214.PMID#[id number] . Phi zuñiga al.,(2011) Clin Lab Med 31:649-58.PMID#[id number] This test was developed and its performacecharacteristics determined by [employer]). It has not been cleared orapproved by the U.S. Food and Drug Administration. The DNAprobe vendor for this study was [employer] ([employer] TESTING PERFORMED AT [facility]. ORIGINAL REPORT ON FILE IN LAB CONTAINS ADDITIONAL TEST SITE INFORMATION. 260 pg/mL 211-911 [facility] See comment [facility] Platelets bldon 03-27-2022 Platelets (Bld) [#/Vol] 108 10*3/uL 150-450 [facility] Work Phone: Review by pathologistOrdered By: Mathieu Mcintyre on 03-27-2022 Pathologist review Eric (Unsp spec) [Interp] Reviewed [facility] Comment on above: Previous reported re sult: Katarzyna varghese Edited by: OMI on 03/28/22:1326Pancytopenia.Leukopenia Mild Macrocytic anemia.Mild ThrombocytopeniaClinical correlation necessary.Orestes Fraire M.D. 03/28/22 AMENDED REPORT 03/28/22 1326 PATH REV previously reported as: Katarzyna varghese Serum or plasma albumin elvia urement (mass/volume)on 03-27-2022 Albumin [Mass/Vol] 3.7 g/dL 3.2-5.0 [facility] Work Phone: Serum or plasma albumin/glob ulin mass ratioon 03-27-2022 Albumin/Globulin [Mass ratio] 1.3 {ratio} 0.9-2.4 [facility] Work Phone: Serum or plasma calcium elvia urement (mass/volume)on 03-27-2022 Calcium [Mass/Vol] 8.8 mg/dL 8.5-10.1 [facility] Work Phone: Serum or plasma creatinine m easurement (mass/volume)on 03-27-2022 Creatinine [Mass/Vol] 2.23 mg/dL 0.70-1.30 [facility] Work Phone: Comment on above: The validity of the calculated GFR & GFRAA in patients over 70 years has not been determined. Clinical correlation is essential. Serum or plasma ferritin pedro luis surement (mass/volume)on 03-27-2022 Ferritin [Mass/Vol] 293 ng/mL 26-388 [facility] Work Phone: Serum or plasma folate measu rement (mass/volume)Ordered By: Mathieu Mcintyre on 03-27-2022 Folate [Mass/Vol] 17.60 ng/mL 3.1-55.4 [facility] Serum or plasma iron saturat ion measurement (mass fraction)on 03-27-2022 Iron saturation [Mass fraction] 31.4 % 15.0-55.0 [facility] Work Phone: Serum or plasma urea nitroge n measurement (mass/volume)on 03-27-2022 Urea nitrogen [Mass/Vol] 40 mg/dL 7-18 [facility] Work Phone: Thin prep Papanicolaou smear with manual screeningon 03-27-2022 Thin prep Papanicolaou smear with manual screening 18 U/L 15-37 [facility] Work Phone: Thin prep Papanicolaou smear with manual screening 5 5-15 [facility] Work Phone: Thin prep Papanicolaou smear with manual screening 160 U/L 87-241 [facility] Work Phone: Laboratory - Hematology and Cell countson 10-03-2021 Anisocytosis Ql (Bld) 1+ [facility] Work Phone: Hemoglobin in reticulocytes (mass per reticulocyte)on 06-06-2021 Hemoglobin (Reticulocytes) [Entitic mass] 36.0 pg High 30-35 [facility] No Panel Informationon 06-06 Haptoglobin 77 mg/dL 34-355 [facility] Comment on above: Performed at: [facility] [place], [place] [id number] Director: Amaury Raya PhD, Phone: [phone] Immature Reticulocyte Fraction 10.20 % 3.00-15.90 [facility] Reticulocyte Count 1.60 % High 0.5-1.5 [facility] 1.60 % High 0.5-1.5 [facility] 10.20 % 3.00-15.90 [facility] 77 mg/dL 34-355 [facility] Ovalocyte detectionon 2020 Ovalocytes LM Ql (Bld) 1+ [facility] Serum or plasma erythropoiet in (EPO) measurement (units/volume)on 06-06-2021 Erythropoietin (EPO) Qn 15.0 mIU/mL 2.6-18.5 [facility] Comment on above: [place] [facility] DxI 800 Immunoassay SystemValues obtained with different assay methods or kits cannotbe used interchangeably. Results cannot be interpreted asabsolute evidence of the presence or absence of malignantdisease. Stool gastrointestinal hemog lobin detection by immunologic methodon 05-17-2021 Lower GI hemoglobin IA Ql (Stl) [facility] Albumin Elph [Mass/Vol]on Albumin [Mass/Vol] 3.8 g/dL 2.9-4.4 [facility] Blood polychromasia detectio n by light microscopyon 05-16-2021 Polychromasia LM Ql (Bld) 1+ [facility] Erythrocyte sedimentation ra adelfo 05-16-2021 ESR (Bld) [Velocity] mm/h 0-20 [facility] Comment on above: Previous reported re sult: 1 mm/hrEdited by: DREW on 05/17/21:0229 AMENDED REPORT 05/17/21228 SED RATE previously reported as: 1 mm/hr Interpretation of serum or p lasma protein pattern by immunofixation (narrative resulton 05-16-2021 Protein Fractions Immunofixation Eric [Interp] See comment [facility] Comment on above: Not Observed Macrocytes detectionon 05-16 Macrocytes Ql (Bld) 1+ [facility] No Panel Informationon 05-16 Addendum Document Comment . [facility] Comment on above: Protein electrophore sis scan will follow via computer,mail, or shower attendant delivery. Free Lambda Light Chains, Quant 15.6 mg/L 5.7-26.3 [facility] 15.6 mg/L 5.7-26.3 [facility] Serum yefyw-2-mbheybvq measu rement by electrophoresison 05-16-2021 Alpha 1 globulin Elph [Mass/Vol] 0.4 g/dL 0.0-0.4 [facility] Alpha 1 globulin Elph [Mass/Vol] 0.5 g/dL 0.4-1.0 [facility] Serum immunoglobulin kappa l ight chains/immunoglobulin lambda light chains mass ratioon 05-16-2021 Immunoglobulin light chains.kappa/Immunoglob ulin light chains.lambda (S) [Mass ratio] 1.62 0.26-1.65 [facility] Comment on above: Performed at: [employer] [facility] [place] [id number] Director: Amaury Raya PhD, Phone: [phone] Serum or plasma IgA measurem ent (mass/volume)on 05-16-2021 IgA [Mass/Vol] 75 mg/dL 61-437 [facility] Serum or plasma IgG measurem ent (mass/volume)on 05-16-2021 IgG [Mass/Vol] 590 mg/dL Low 603-8684 [facility] Serum or plasma IgM measurem ent (mass/volume)on 05-16-2021 IgM [Mass/Vol] 9 mg/dL Low 15-143 [facility] Comment on above: Result confirmed on concentration. Serum or plasma beta globuli n measurement by electrophoresis (mass/volume)on 05-16-2021 Beta globulin Elph [Mass/Vol] 0.7 g/dL 0.7-1.3 [facility] Serum or plasma gamma globul in measurement by electrophoresis (mass/volume)on 05-16-2021 Gamma globulin Elph [Mass/Vol] 0.5 g/dL 0.4-1.8 [facility] Serum or plasma immunoelectr ophoresis interpretation (nominal result)on 05-16-2021 Interpretation IEP [Interp] Comment . [facility] Comment on above: No monoclonality det ected. Serum or plasma immunoglobul in kappa light chains measurement (mass/volume)on 05-16-2021 Immunoglobulin light chains.kappa [Mass/Vol] 25.3 mg/L High 3.3-19.4 [facility] Thin prep Papanicolaou smear with manual screeningon 05-16-2021 Thin prep Papanicolaou smear with manual screening 1+ [facility] Thin prep Papanicolaou smear with manual screening 1.9 0.7-1.7 [facility] Total protein bloodon 2020 Protein [Mass/Vol] 5.9 g/dL Low 6.0-8.5 [facility] CULTURE FUNGUSon 10-10-2020 CULTURE FUNGUS CULTURE FUNGUS --> S tatus: F No fungus isolated after 21 days. Normal [facility] Comment on above: Performed By: #### C /TBC #### [facility] [address], [place] Basic Metabolic Panelon 09-28 Calcium [Mass/Vol] 8.4 mg/dL Normal 8.4-10.4 [facility] Comment on above: Performed By: #### B NP3, BMP3, MG3 #### [facility] [address], [place] Glucose [Mass/Vol] 102 mg/dL High 70-100 [facility] Comment on above: Performed By: #### B NP3, BMP3, MG3 #### [facility] [address], [place] Urea nitrogen [Mass/Vol] 44 mg/dL High 7-20 [facility] Comment on above: Performed By: #### B NP3, BMP3, MG3 #### [facility] [address], [place] Anion gap [Moles/Vol] 3 mmol/L Normal 3-13 [facility] Comment on above: Performed By: #### B NP3, BMP3, MG3 #### [facility] [address], [place] CO2 [Moles/Vol] 32 mmol/L High 22-30 [facility] Comment on above: Performed By: #### B NP3, BMP3, MG3 #### [facility] [address], [place] Creatinine [Mass/Vol] 2.13 mg/dL High 0.52-1.25 [facility] Comment on above: Performed By: #### B NP3, BMP3, MG3 #### [facility] [address], [place] GFR/1.73 sq M.predicted among blacks MDRD (S/P/Bld) [Vol rate/Area] 33.1 mL/min/{1.73_m2} Abnormal >60 [facility] Comment on above: Performed By: #### B NP3, BMP3, MG3 #### [place] [address] [address], [place] GFR/1.73 sq M.predicted among non-blacks MDRD (S/P/Bld) [Vol rate/Area] 28.5 mL/min/{1.73_m2} Abnormal >60 [facility] Comment on above: Result Comment: KDIG O [...] By: #### B NP3, BMP3, MG3 #### [facility] [address], [place] Chloride [Moles/Vol] 101 mmol/L Normal 98-107 [facility] Comment on above: Performed By: #### B NP3, BMP3, MG3 #### [facility] [address] [place] [address] Potassium [Moles/Vol] 3.3 mmol/L Low 3.5-5.1 [facility] Comment on above: Performed By: #### B NP3, BMP3, MG3 #### [facility] [address] [place] [address] Sodium [Moles/Vol] 137 mmol/L Normal 135-145 [facility] Comment on above: Performed By: #### B NP3, BMP3, MG3 #### [facility] [address] [place] [address] Anion gap [Moles/Vol] 3 mmol/L 3 - 13 mmol/L [facility] Work Phone: Calcium [Mass/Vol] 8.4 mg/dL 8.4 - 10. 4 mg/dL [facility] Work Phone: Chloride [Moles/Vol] 101 mmol/L 98 - 10 7 mmol/L [facility] Work Phone: CO2 [Moles/Vol] 32 mmol/L High 22 - 30 mmol/L [facility] Work Phone: Creatinine [Mass/Vol] 2.13 mg/dL High 0.52 - 1.25 mg/dL [facility] Work Phone: EGFR IF NonAfrican Chadian 28.5 mL/min Abnormal >60 [facility] Work Phone: Comment on above: KDIGO [...] pg/mL [facility] Work Phone: Test Performed by [facility], [address] [place] [address] [facility] Work Phone: CR Chest Portableon 10-08-19 21 CR Chest Portable [facility]: [id number] Radiology ACCESSION EXAM DATE/TIME PROCEDURE ORDERING PROVIDER [id number] 10/07/2020 07:31 EDT CR Chest Portable KASSANDRA DAVIDSON CPT code 11330 Reason For Exam (CR Chest Portable) Post [...] Transcribed Date and Time: 10/07/2020 10:49 Normal [facility] Magnesiumon 10-07-2020 Magnesium [Mass/Vol] 1.9 mg/dL Normal 1.6-2.3 [facility] Comment on above: Performed By: #### B NP3, BMP3, MG3 #### [address] [address] Magnesium [Mass/Vol] 1.9 mg/dL 1.6 - 2 .3 mg/dL [facility] Work Phone: NT pro BNPon 10-07-2020 Natriuretic peptide B (Bld) [Mass/Vol] 7758 pg/mL High 0-450 [facility] Comment on above: Performed By: #### C /TBC #### [address] [address] Otheron 10-07-2020 Test Performed by [facility], [address] [place] [address] [facility] Work Phone: XR CHEST PORTABLEon 10-08-19 Patient Name: AMAURY DAVIS Diagnostic Radiology ACCESSION EXAM DATE/TIME PROCEDURE ORDERING PROVIDER [id number] 10/07/2020 07:31 EDT CR Chest Portable KASSANDRA DAVIDSON CPT code 55669 Reason For Exam (CR Chest Portable) Post [...] Dictated: 10/07/2020 10:49 am Dictating Physician: MD ARORYO KERISTEN L Signed Date and Time: 10/07/2020 10:52 am Signed by: MD ARROYO KERISTEN L Transcribed Date and Time: 10/07/2020 10:49 [facility] Work Phone: [facility]ax, [facility] Incoming Radiology Results From [facility] - 10/07/2020 10:53 AM EDT Patient [facility]: [id number] Diagnostic Radiology ACCESSION EXAM DATE/TIME PROCEDURE ORDERING PROVIDER [id number] 10/07/2020 07:31 EDT CR Chest Portable NICHOLEKASSANDRA Han CPT code 92177 Reason For Exam (CR Chest Portable) Post [...] L Transcribed Date and Time: 10/07/2020 10:49 [facility] Work Phone: Albuminon 10-06-2020 Albumin [Mass/Vol] 2.7 g/dL Low 3.5 - 5.0 g/dL [facility] Work Phone: Albumin, Serumon 10-06-2020 Albumin [Mass/Vol] 2.7 g/dL Low 3.5-5.0 [facility] Comment on above: Performed By: #### A DDON #### [facility] [address] [place] [address] Basic Metabolic Panelon Anion gap [Moles/Vol] 3 mmol/L Normal 3-13 [facility] Comment on above: Performed By: #### A DDON #### [facility] [address] [place] [address] Calcium [Mass/Vol] 8.4 mg/dL Normal 8.4-10.4 [facility] Comment on above: Performed By: #### A DDON #### [facility] [address] [place] [address] CO2 [Moles/Vol] 29 mmol/L Normal 22-30 [facility] Comment on above: Performed By: #### A DDON #### [facility] [address] [place] [address] Creatinine [Mass/Vol] 2.23 mg/dL High 0.52-1.25 [facility] Comment on above: Performed By: #### A DDON #### [facility] [address] [place] [address] GFR/1.73 sq M.predicted among blacks MDRD (S/P/Bld) [Vol rate/Area] 31.3 mL/min/{1.73_m2} Abnormal >60 [facility] Comment on above: Performed By: #### A DDON #### [facility] [address] [place] [address] GFR/1.73 sq M.predicted among non-blacks MDRD (S/P/Bld) [Vol rate/Area] 27.0 mL/min/{1.73_m2} Abnormal >60 [facility] Comment on above: Result Comment: KDIG O [...] secretion. Performed By: #### A DDON #### [place] [address], [place] Glucose [Mass/Vol] 106 mg/dL High 70-100 [facility] Comment on above: Performed By: #### A DDON #### [place] [address], [place] Urea nitrogen [Mass/Vol] 43 mg/dL High 7-20 [facility] Comment on above: Performed By: #### A DDON #### [place] [address], [place] Chloride [Moles/Vol] 106 mmol/L Normal 98-107 [facility] Comment on above: Performed By: #### A DDON #### [address] Potassium [Moles/Vol] 3.7 mmol/L Normal 3.5-5.1 [facility] Comment on above: Performed By: #### A DDON #### [address] [place], [place] Sodium [Moles/Vol] 137 mmol/L Normal 135-145 [facility] Comment on above: Performed By: #### A DDON #### [facility] [address] [address] Anion gap [Moles/Vol] 3 mmol/L 3 - 13 mmol/L [facility] Work Phone: Calcium [Mass/Vol] 8.4 mg/dL 8.4 - 10. 4 mg/dL [facility] Work Phone: Chloride [Moles/Vol] 106 mmol/L 98 - 10 7 mmol/L [facility] Work Phone: CO2 [Moles/Vol] 29 mmol/L 22 - 30 mmol/L [facility] Work Phone: Creatinine [Mass/Vol] 2.23 mg/dL High 0.52 - 1.25 mg/dL [facility] Work Phone: EGFR IF NonAfrican Chadian 27.0 mL/min Abnormal >60 [facility] Work Phone: [...] [Moles/Vol] 137 mmol/L 135 - 145 mmol/L [facility] Work Phone: Urea nitrogen (BldV) [Mass/Vol] 43 mg/dL High 7 - 20 mg/dL [facility] Work Phone: CR Chest Portableon 10-07-19 21 CR Chest Portable [facility]: [id number] Diagnostic Radiology ACCESSION EXAM DATE/TIME PROCEDURE ORDERING PROVIDER [id number] 10/06/2020 07:09 EDT CR Chest Portable KASSANDRA DAVIDSON CPT code 21312 Reason For Exam (CR Chest Portable) Post [...] Transcribed Date and Time: 10/06/2020 8:14 Normal [facility] CREATININE, RANDOM URINEon 0 10-06-2020 Creatinine (U) [Mass/Vol] 17.4 mg/dL No Range [facility] Work Phone: Creatinine, Ur Randomon 04-0 Creatinine, Ur Random 17.4 mg/dL Normal No Range [facility] Comment on above: Performed By: #### B MP3, HEMDF #### [facility] [address] [address] EKG 12 Leadon 10-06-2020 Jax, [facility] Incoming Cardiology Results From [facility] - 10/06/2020 9:06 AM EDT [facility] Test Date: 2020-10-05 Pat Name: Amaury Blank Department: [facility] Room: [facility] Gender: 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1940 Requested By: MACRINA ALCAZAR Order Number: [id number] Reading MD: Heather Saab Measurements Intervals [place] Rate: 71 P: 55 PA: 159 QRS: -18 QRSD: 118 T: 32 QT: 455 QTc: 495 Interpretive Statements Sinus rhythm Inferior infarct, old Anteroseptal infarct, age indeterminate Electronically Signed On 10-06-2020 9:05:50 EDT by Heather Saab [facility] Work Phone: [facility] Test Date: 2020-10-05 Pat Name: Amaury Blank Department: 1A6 Room: [facility] Gender: 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1940 Requested By: MACRINA ALCAZAR Order Number: [id number] Reading MD: Heather Saab Measurements Intervals [place] Rate: 71 P: 55 PA: 159 QRS: -18 QRSD: 118 T: 32 QT: 455 QTc: 495 Interpretive Statements Sinus rhythm Inferior infarct, old Anteroseptal infarct, age indeterminate Electronically Signed On 10-06-2020 9:05:50 EDT by Heather Saab [facility] Work Phone: EOSINOPHILS, URINEon 021 Bacteria, UA see comment [facility] Work Phone: Comment on above: yeast observed Eosinophil, Urine NO EOSINS SEEN [facility] Work Phone: Test Performed by [facility], [address] [place] [id number] [facility] Work Phone: Eosinophils,Uron 10-06-2020 Bacteria identified Cx Nom (Unsp spec) see comment Normal [facility] Comment on above: Result Comment: farhan mcqueen observed Performed By: #### B MP3, HEMDF #### [facility] [address] [place] [address] Eosinophils Urine NO EOSINS SEEN Normal [facility] Comment on above: Performed By: #### B MP3, HEMDF #### [facility] [address] [place] [address] Magnesiumon 10-06-2020 Magnesium [Mass/Vol] 1.3 mg/dL Low 1.6-2.3 [facility] Comment on above: Performed By: #### A DDON #### [place] [address] [place] [address] Magnesium [Mass/Vol] 1.3 mg/dL Low 1.6 - 2 .3 mg/dL [facility] Work Phone: Otheron 10-06-2020 Test Performed by [facility], [place] [address] [facility] Work Phone: Interpretation and review of laboratory results Abnormal [facility] Work Phone: Test Performed by [facility], [place] [address] [facility] Work Phone: Phosphoruson 10-06-2020 Phosphate [Mass/Vol] 4.0 mg/dL Normal 2.5-4.5 [facility] Comment on above: Performed By: #### A DDON #### [place] [address] [place] [address] Phosphate [Mass/Vol] 4.0 mg/dL 2.5 - 4 .5 mg/dL [facility] Work Phone: Sodium, Ur Randomon 10-07-19 21 Sodium [Moles/Vol] 139 mmol/L High 30-90 [facility] Comment on above: Performed By: #### B MP3, HEMDF #### [facility] [address] [place] [address] Sodium, Urine, Randomon 04-0 Interpretation and review of laboratory results Abnormal [facility] Work Phone: Sodium (U) [Moles/Vol] 139 mmol/L High 30 - 90 mmol/L [facility] Work Phone: XR CHEST PORTABLEon 10-07-19 Jax, [facility] Incoming Radiology Results From [facility] - 10/06/2020 8:17 AM EDT Patient Name: AMAURY BLANK Diagnostic Radiology ACCESSION EXAM DATE/TIME PROCEDURE ORDERING PROVIDER [id number] 10/06/2020 07:09 EDT CR Chest Portable AZIKEN, KASSANDRA CPT code 73303 Reason For Exam (CR Chest Portable) Post [...] R Transcribed Date and Time: 10/06/2020 8:14 [facility] Work Phone: Patient Name: AMAURY DAVIS Diagnostic Radiology ACCESSION EXAM DATE/TIME PROCEDURE ORDERING PROVIDER [id number] 10/06/2020 07:09 EDT CR Chest Portable AZIKEN, KASSANDRA CPT code 06293 Reason For Exam (CR Chest Portable) Post [...] R Transcribed Date and Time: 10/06/2020 8:14 [facility] Work Phone: Basic Metabolic Panelon 04-0 Anion gap [Moles/Vol] 5 mmol/L Normal 3-13 [facility] Comment on above: Performed By: #### A DDON #### [facility] [address] [place] [address] Calcium [Mass/Vol] 8.4 mg/dL Normal 8.4-10.4 [facility] Comment on above: Performed By: #### A DDON #### [facility] [address] [place] [address] CO2 [Moles/Vol] 25 mmol/L Normal 22-30 [facility] Comment on above: Performed By: #### A DDON #### [facility] [address] [place] [address] Creatinine [Mass/Vol] 2.42 mg/dL High 0.52-1.25 [facility] Comment on above: Performed By: #### A DDON #### [facility] [address] [place] [address] GFR/1.73 sq M.predicted among blacks MDRD (S/P/Bld) [Vol rate/Area] 28.3 mL/min/{1.73_m2} Abnormal >60 [facility] Comment on above: Performed By: #### A DDON #### [address] [address] GFR/1.73 sq M.predicted among non-blacks MDRD (S/P/Bld) [Vol rate/Area] 24.4 mL/min/{1.73_m2} Abnormal >60 [facility] Comment on above: Result Comment: KDIG O [...] secretion. Performed By: #### A DDON #### [place] [address], [place] Glucose [Mass/Vol] 111 mg/dL High 70-100 [facility] Comment on above: Performed By: #### A DDON #### [place] [address] [place] [address] Urea nitrogen [Mass/Vol] 43 mg/dL High 7-20 [facility] Comment on above: Performed By: #### A DDON #### [place] [address] [place] [address] Chloride [Moles/Vol] 112 mmol/L High 98-107 [facility] Comment on above: Performed By: #### A DDON #### [place] [address] [place], [place] Potassium [Moles/Vol] 4.1 mmol/L Normal 3.5-5.1 [facility] Comment on above: Performed By: #### A DDON #### [facility] [address] [place] [address] Sodium [Moles/Vol] 142 mmol/L Normal 135-145 [facility] Comment on above: Performed By: #### A DDON #### [facility] [address] [place] [address] Anion gap [Moles/Vol] 5 mmol/L 3 - 13 mmol/L [facility] Work Phone: Calcium [Mass/Vol] 8.4 mg/dL 8.4 - 10. 4 mg/dL [facility] Work Phone: Chloride [Moles/Vol] 112 mmol/L High 98 - 10 7 mmol/L [facility] Work Phone: CO2 [Moles/Vol] 25 mmol/L 22 - 30 mmol/L [facility] Work Phone: Creatinine [Mass/Vol] 2.42 mg/dL High 0.52 - 1.25 mg/dL [facility] Work Phone: EGFR IF NonAfrican Chadian 24.4 mL/min Abnormal >60 [facility] Work Phone: Comment on above: KDIGO guidelines [...] (S/P/Bld) [Vol rate/Area] 28.3 mL/min/{1.73_m2} Abnormal >60 [facility] Work Phone: Glucose [Mass/Vol] 111 mg/dL High 70 - 100 mg/dL [facility] Work Phone: Potassium [Moles/Vol] 4.1 mmol/L 3.5 - 5.1 mmol/L [facility] Work Phone: Sodium [Moles/Vol] 142 mmol/L 135 - 145 mmol/L [facility] Work Phone: Urea nitrogen (BldV) [Mass/Vol] 43 mg/dL High 7 - 20 mg/dL [facility] Work Phone: CR Chest Portableon 10-06-19 CR Chest Portable Patient Name: AMAURY DAVIS Diagnostic Radiology ACCESSION EXAM DATE/TIME PROCEDURE ORDERING PROVIDER [id number] 10/05/2020 07:06 EDT CR Chest Portable KASSANDRA DAVIDSON CPT code 83926 Reason For Exam (CR Chest Portable) Post [...] Transcribed Date and Time: 10/05/2020 8:03 Normal [facility] Diagnostic Cardiac Portfolio Lead Procedureon 10-05-2020 Heather Saab MD 1:46 PM [...] was introduced into the esophagus by the department head Dr. Beasley under my direct supervision, smoothly. [...] TTE report to follow for further details. [facility] Work Phone: Echo 2D/3D ROSI w/wo Contrast on 10-05-2020 Echo 2D/3D ROSI w/wo Contrast Patient Name: AMAURY BLANK Ultrasound ACCESSION EXAM DATE/TIME PROCEDURE ORDERING PROVIDER [id number] 10/05/2020 14:06 EDT Echo 2D/3D ROSI w/wo [id number] -Precious GONZALEZHAMMAD Reason For Exam (Echo 2D/3D ROSI w/wo Contrast) atrial flutter Report TRANSESOPHAGEAL ECHOCARDIOGRAM PATIENT: Amaury Blank STUDY DATE: 10/05/2020 R [facility]#: [id number] : 1940 AGE: 80 HT/WT: 180.3 cm (71 81.4 kg (179 in) lb) GENDER: M BP: 129 / 67 LOCATION: [facility] PATIENT Inpatient main STATUS: *ORDERING PHYSICIAN: * Carlos, *FELLOW: Macrina Dan *RN: Isabella Jc *READING PHYSICIAN: * Heather Saab *[employer] MANAGER: Yen Patel [facility] INDICATIONS: Atrial flutter. CONCLUSIONS SUMMARY: [...] A transesophageal probe was inserted by the department head under direct supervision of the attending cardiologistwith [...] pm Signed by: MD SAAB WISSAM Normal [facility] Echocardiogram transesophage rick 10-05-2020 Jax, [facility] Incoming Cardiology Results From [facility] - 10/05/2020 5:47 PM EDT TRANSESOPHAGEAL ECHOCARDIOGRAM PATIENT: Amaury Blank STUDY DATE: 10/05/2020 R : 1940 AGE: 80 HT/WT: 180.3 cm (71 81.4 kg (179 in) lb) GENDER: M BP: 129 / 67 LOCATION: [facility] PATIENT Inpatient main STATUS: *ORDERING PHYSICIAN: * Carlos, *FELLOW: * Macrina Alcazar *RN: Isabella Jc *READING PHYSICIAN: Heather Mejia *[employer] MANAGER: * Erum Patel RDCS INDICATIONS: Atrial flutter. [...] A transesophageal probe was inserted by the department head under direct supervision of the attending cardiologistwith [...] by Heather Saab 10/05/2020 17:47 Prior Signatures: [employer] Work Phone: TRANSESOPHAGEAL ECHOCARDIOGRAM PATIENT: Amaury Blank STUDY DATE: 10/05/2020 R : 1940 AGE: 80 HT/WT: 180.3 cm (71 81.4 kg (179 in) lb) GENDER: M BP: 129 / 67 LOCATION: [facility] PATIENT Inpatient main STATUS: *ORDERING PHYSICIAN: * Carlos, *FELLOW: * Macrina Alcazar *RN: * Isabella Zazueta *READING PHYSICIAN: * Heather Saab *[employer] MANAGER: * Erum Patel [facility] INDICATIONS: Atrial flutter. CONCLUSIONS SUMMARY: [...] A transesophageal probe was inserted by the department head under direct supervision of the attending cardiologistwith [...] by Heather Saab 10/05/2020 17:47 Prior Signatures: [employer] Work Phone: Magnesiumon 10-05-2020 Magnesium [Mass/Vol] 1.3 mg/dL Low 1.6-2.3 [facility] [employer] Comment on above: Performed By: #### A DDON #### [facility] [employer] [address] [place] [address] Magnesium [Mass/Vol] 1.3 mg/dL Low 1.6 - 2 .3 mg/dL [facility] Work Phone: Otheron 10-05-2020 Interpretation and review of laboratory results Abnormal [facility] Work Phone: Test Performed by [facility], [address] [place] [id number] [facility] Work Phone: XR CHEST PORTABLEon 10-06-19 Jax, [facility] Incoming Radiology Results From [facility] - 10/05/2020 8:07 AM EDT Patient Name: AMAURY BLANK Diagnostic Radiology ACCESSION EXAM DATE/TIME PROCEDURE ORDERING PROVIDER [id number] 10/05/2020 07:06 EDT CR Chest Portable KASSANDRA DAVIDSON CPT code 12412 Reason For Exam (CR Chest Portable) Post [...] [facility] Work Phone: Patient Name: AMAURY DAVIS [facility]#: [id number] Diagnostic Radiology ACCESSION EXAM DATE/TIME PROCEDURE ORDERING PROVIDER [id number] 10/05/2020 07:06 EDT CR Chest Portable AKSSANDRA DAVIDSON CPT code 62437 Reason For Exam (CR Chest Portable) Post [...] Diaz Transcribed Date and Time: 10/05/2020 8:03 [facility] Work Phone: Basic Metabolic Panelon 04-0 Anion gap [Moles/Vol] 2 mmol/L Low 3-13 [facility] Comment on above: Performed By: #### B NP3, BMP3, MG3 #### [place] [address], [place] Calcium [Mass/Vol] 8.4 mg/dL Normal 8.4-10.4 [facility] Comment on above: Performed By: #### B NP3, BMP3, MG3 #### [place] [address], [place] CO2 [Moles/Vol] 25 mmol/L Normal 22-30 [facility] Comment on above: Performed By: #### B NP3, BMP3, MG3 #### [place] [address], [place] Glucose [Mass/Vol] 109 mg/dL High 70-100 [facility] Comment on above: Performed By: #### B NP3, BMP3, MG3 #### [place] [address] [place], [place] Urea nitrogen [Mass/Vol] 40 mg/dL High 7-20 [facility] Comment on above: Performed By: #### B NP3, BMP3, MG3 #### [place] [address], [place] Creatinine [Mass/Vol] 2.14 mg/dL High 0.52-1.25 [facility] Comment on above: Performed By: #### B NP3, BMP3, MG3 #### [place] [address], [place] GFR/1.73 sq M.predicted among blacks MDRD (S/P/Bld) [Vol rate/Area] 32.9 mL/min/{1.73_m2} Abnormal >60 [facility] Comment on above: Performed By: #### B NP3, BMP3, MG3 #### [place] [address] [place] [address] GFR/1.73 sq M.predicted among non-blacks MDRD (S/P/Bld) [Vol rate/Area] 28.4 mL/min/{1.73_m2} Abnormal >60 [facility] Comment on above: Result Comment: KDIG O [...] By: #### B NP3, BMP3, MG3 #### [place] [address], [place] Potassium [Moles/Vol] 4.3 mmol/L Normal 3.5-5.1 [facility] Comment on above: Performed By: #### B NP3, BMP3, MG3 #### [place] [address] [place], [place] Sodium [Moles/Vol] 142 mmol/L Normal 135-145 [facility] Comment on above: Performed By: #### B NP3, BMP3, MG3 #### [facility] [address] [place] [address] Chloride [Moles/Vol] 115 mmol/L High 98-107 [facility] Comment on above: Performed By: #### B NP3, BMP3, MG3 #### [facility] [address] [place] [address] Anion gap [Moles/Vol] 2 mmol/L Low 3 - 13 mmol/L [facility] Work Phone: Calcium [Mass/Vol] 8.4 mg/dL 8.4 - 10. 4 mg/dL [facility] Work Phone: Chloride [Moles/Vol] 115 mmol/L High 98 - 10 7 mmol/L [facility] Work Phone: [phone] CO2 [Moles/Vol] 25 mmol/L 22 - 30 mmol/L [facility] Work Phone: Creatinine [Mass/Vol] 2.14 mg/dL High 0.52 - 1.25 mg/dL [facility] Work Phone: EGFR IF NonAfrican Chadian 28.4 mL/min Abnormal >60 [facility] Work Phone: [...] 40 mg/dL High 7 - 20 mg/dL [facility] Work Phone: Brain Natriuretic Peptideon 10-04-2020 Interpretation and review of laboratory results Abnormal [facility] Work Phone: Natriuretic peptide B (Bld) [Mass/Vol] 16421 pg/mL High 0 - 450 pg/mL [facility] Work Phone: Test Performed by [facility], [address] [place] [phone] [facility] Work Phone: CR Chest Portableon 10-05-19 21 CR Chest Portable Patient Name: AMAURY DAVIS Diagnostic Radiology ACCESSION EXAM DATE/TIME PROCEDURE ORDERING PROVIDER [id number] 10/04/2020 06:50 EDT CR Chest Portable CORTES KASSANDRA CPT code 53265 Reason For Exam (CR Chest Portable) Post [...] Transcribed Date and Time: 10/04/2020 8:44 Normal [facility] Magnesiumon 10-04-2020 Magnesium [Mass/Vol] 1.4 mg/dL Low 1.6-2.3 [facility] Comment on above: Performed By: #### B NP3, BMP3, MG3 #### [facility] [employer] [address] [place] [address] Magnesium [Mass/Vol] 1.4 mg/dL Low 1.6 - 2 .3 mg/dL [facility] Work Phone: NT pro BNPon 10-04-2020 Natriuretic peptide B (Bld) [Mass/Vol] 67778 pg/mL High 0-450 [facility] [employer] [facility] Comment on above: Performed By: #### B NP3, BMP3, MG3 #### [facility] [employer] [address] [place] [address] Otheron 10-04-2020 Interpretation and review of laboratory results Abnormal [facility] Work Phone: Test Performed by [facility], [address] [place] [phone] [facility] Work Phone: XR CHEST PORTABLEon 10-05-19 Jax, [facility] Incoming Radiology Results From [facility] - 10/04/2020 8:47 AM EDT Patient [facility]: [id number] Radiology ACCESSION EXAM DATE/TIME PROCEDURE ORDERING PROVIDER [id number] 10/04/2020 06:50 EDT CR Chest Portable KASSANDRA DAVIDSON CPT code 99519 Reason For Exam (CR Chest Portable) Post [...] HARLAN Transcribed Date and Time: 10/04/2020 8:44 [facility] Work Phone: Patient Name: AMAURY DAVIS [facility]#: [id number] Diagnostic Radiology ACCESSION EXAM DATE/TIME PROCEDURE ORDERING PROVIDER [id number] 10/04/2020 06:50 EDT CR Chest Portable KASSANDRA DAVIDSON CPT code 82166 Reason For Exam (CR Chest Portable) Post [...] HARLAN Transcribed Date and Time: 10/04/2020 8:44 [facility] Work Phone: Albuminon 10-03-2020 Albumin [Mass/Vol] 2.9 g/dL Low 3.5 - 5.0 g/dL [facility] Work Phone: Albumin, Serumon 10-03-2020 Albumin [Mass/Vol] 2.9 g/dL Low 3.5-5.0 [facility] [employer] Comment on above: Performed By: #### B NP3, BMP3, MG3 #### [employer] [address] [place] [address] [place] [address] Basic Metabolic Panelon 04-0 Calcium [Mass/Vol] 8.8 mg/dL Normal 8.4-10.4 [facility] Comment on above: Performed By: #### C /TBC #### [facility] [address] [place] [address] Anion gap [Moles/Vol] 6 mmol/L Normal 3-13 [facility] Comment on above: Performed By: #### C /TBC #### [place] [address], [place] CO2 [Moles/Vol] 21 mmol/L Low 22-30 [facility] Comment on above: Performed By: #### C /TBC #### [place] [address], [place] Creatinine [Mass/Vol] 1.89 mg/dL High 0.52-1.25 [facility] Comment on above: Performed By: #### C /TBC #### [place] [address], [place] GFR/1.73 sq M.predicted among blacks MDRD (S/P/Bld) [Vol rate/Area] 38.2 mL/min/{1.73_m2} Abnormal >60 [facility] Comment on above: Performed By: #### C /TBC #### [place] [address], [place] GFR/1.73 sq M.predicted among non-blacks MDRD (S/P/Bld) [Vol rate/Area] 33.0 mL/min/{1.73_m2} Abnormal >60 [facility] Comment on above: Result Comment: KDIG O [...] secretion. Performed By: #### C /TBC #### [facility] [address] [place] [address] Glucose [Mass/Vol] 106 mg/dL High 70-100 [facility] Comment on above: Performed By: #### C /TBC #### [place] [address] [place] [address] Urea nitrogen [Mass/Vol] 37 mg/dL High 7-20 [facility] Comment on above: Performed By: #### C /TBC #### [place] [place] [address] Potassium [Moles/Vol] 4.4 mmol/L Normal 3.5-5.1 [facility] Comment on above: Performed By: #### C /TBC #### [place] [address] [place] [address] Chloride [Moles/Vol] 115 mmol/L High 98-107 [facility] Comment on above: Performed By: #### C /TBC #### [place] [address] [place] [address] Sodium [Moles/Vol] 141 mmol/L Normal 135-145 [facility] Comment on above: Performed By: #### C /TBC #### [place] [address] [place] [address] Anion gap [Moles/Vol] 6 mmol/L 3 - 13 mmol/L [facility] Work Phone: Calcium [Mass/Vol] 8.8 mg/dL 8.4 - 10. 4 mg/dL [facility] Work Phone: Chloride [Moles/Vol] 115 mmol/L High 98 - 10 7 mmol/L [facility] Work Phone: CO2 [Moles/Vol] 21 mmol/L Low 22 - 30 mmol/L [facility] Work Phone: Creatinine [Mass/Vol] 1.89 mg/dL High 0.52 - 1.25 mg/dL [facility] Work Phone: EGFR IF NonAfrican Chadian 33.0 mL/min Abnormal >60 [facility] Work Phone: [...] 10-04-19 21 CR Chest Portable Patient Name: AMAURY DAVIS Diagnostic Radiology ACCESSION EXAM DATE/TIME PROCEDURE ORDERING PROVIDER [id number] 10/03/2020 01:59 EDT CR Chest Portable RUSSELL HICKEY CPT code 70424 Reason For Exam (CR Chest Portable) Right [...] Transcribed Date and Time: 10/03/2020 2:24 [address] [facility] CT CHEST WO CONTRASTon 10-03 Patient Name: AMAURY DAVIS Computed Tomography ACCESSION EXAM DATE/TIME PROCEDURE ORDERING PROVIDER [id number] 10/03/2020 11:[address] Thorax w/o Contrast KASSANDRA DAVIDSON CPT code 80727 Reason For Exam (CT Thorax w/o Contrast) [...] Phone: [facility]ax, [facility] Incoming Radiology Results From [facility] - 10/03/2020 2:46 PM EDT Patient Name: AMAURY BLANK Computed Tomography ACCESSION EXAM DATE/TIME PROCEDURE ORDERING PROVIDER [id number] 10/03/2020 11:[address] Thorax w/o Contrast KASSANDRA DAVIDSON CPT code 81739 Reason For Exam (CT Thorax w/o Contrast) [...] Tomography ACCESSION EXAM DATE/TIME PROCEDURE ORDERING PROVIDER [id number] 10/03/2020 11:[address] Thorax w/o Contrast CORTES KASSANDRA CPT code 55485 Reason For Exam (CT Thorax w/o Contrast) [...] Transcribed Date and Time: 10/03/2020 2:36 Normal [facility] CT GUIDED PLEURAL DRAINAGE W CATH PERCon 10-03-2020 [id number] Computed Tomography ACCESSION EXAM DATE/TIME PROCEDURE ORDERING PROVIDER [id number] 10/03/2020 15:[address] Insert Cath Pleura w/ PAOLA, EVARISTOJUS. Image CPT code 80333 Reason For Exam (CT Insert Cath Pleura [...] one percent lidocaine. Following this, a 10 Nepalese small caliber chest tube was advanced into [...] Phone: Jax, Leticia Incoming Radiology Results From [facility] - 10/03/2020 3:58 PM EDT Patient Name: [facility]ANK [id number] Computed Tomography ACCESSION EXAM DATE/TIME PROCEDURE ORDERING PROVIDER [id number] 10/03/2020 15:[address] Insert Cath Pleura w/ PAOLA, EVARISTO JUS CarballoMarielena Image CPT code 02354 Reason For Exam (CT Insert Cath Pleura [...] one percent lidocaine. Following this, a 10 Nepalese small caliber chest tube was advanced into [...] Tomography ACCESSION EXAM DATE/TIME PROCEDURE ORDERING PROVIDER [id number] 10/03/2020 15:[address] Insert Cath Pleura w/ PAOLA, ACNP, JUS Carabllo. Image CPT code 91135 Reason For Exam (CT Insert Cath Pleura [...] one percent lidocaine. Following this, a 10 Nepalese small caliber chest tube was advanced into [...] Transcribed Date and Time: 10/03/2020 3:49 Normal [facility] Folateon 10-03-2020 Folate 12.0 ng/mL Normal 2.8-20.0 [facility] Comment on above: Performed By: #### B NP3, BMP3, MG3 #### [address] [address] Folate 12 ng/mL 2.8 - 20.0 ng/mL [facility] Work Phone: Iron AND TIBCon 10-03-2020 Saturation 35 % Normal 15-50 [facility] Comment on above: Performed By: #### B NP3, BMP3, MG3 #### [address] [address] Total Iron Binding Cap. 115 ug/dL Low 261-497 [facility] Comment on above: Performed By: #### B NP3, BMP3, MG3 #### [address] [address] Iron, Total 40 ug/dL Low 49-181 [facility] Comment on above: Performed By: #### B NP3, BMP3, MG3 #### [address] [address] Iron and TIBCon 10-03-2020 Interpretation and review of laboratory results Abnormal [facility] Work Phone: Iron [Mass/Vol] 40 ug/dL Low 49 - 181 ug/dL [facility] Work Phone: Sat 35 % 15 - 50 % [facility] Work Phone: TIBC 115 ug/dL Low 261 - 497 ug/dL [facility] Work Phone: Test Performed by [facility], [place] [address] [facility] Work Phone: Lipid Panelon 10-03-2020 Chol/HDL 2 Normal [facility] Comment on above: Result Comment: Ref Range: < 3 Low Risk for CHD 3-6 Mod Risk for CHD > 6 High Risk for CHD Performed By: #### B NP3, BMP3, MG3 #### [employer] [address] [place] [address] Cholesterol in HDL [Mass/Vol] 49 mg/dL Normal 40-60 [facility] Comment on above: Performed By: #### B NP3, BMP3, MG3 #### [facility] [employer] [address] [place] [address] Low Density Lipoprotein 28 mg/dL Normal <100 [facility] Comment on above: Performed By: #### B NP3, BMP3, MG3 #### [employer] [address] [place] [address] Cholesterol [Mass/Vol] 93 mg/dL Normal < 200 [facility] Comment on above: Performed By: #### B NP3, BMP3, MG3 #### [employer] [address] [place] [address] Triglyceride [Mass/Vol] 79 mg/dL Normal <150 [facility] Comment on above: Performed By: #### B NP3, BMP3, MG3 #### [employer] [address] [place] [address] Lipid panel - fastingon Cholesterol [Mass/Vol] 93 mg/dL <200 [facility] Work Phone: Cholesterol in HDL [Mass/Vol] 49 mg/dL 40 - 60 mg/dL [facility] Work Phone: Cholesterol in LDL [Mass/Vol] 28 mg/dL <100 [facility] Work Phone: Cholesterol.total/Maria E sterol in HDL [Mass ratio] 2 {ratio} [facility] Work Phone: Comment on above: Ref Range: < 3 Low Risk for CHD 3-6 Mod Risk for CHD > 6 High Risk for CHD Triglyceride [Mass/Vol] 79 mg/dL <150 [facility] Work Phone: Magnesiumon 10-03-2020 Magnesium [Mass/Vol] 1.6 mg/dL Normal 1.6-2.3 [facility] Comment on above: Performed By: #### C /TBC #### [facility] [employer] [address] [place] [address] Magnesium [Mass/Vol] 1.6 mg/dL 1.6 - 2 .3 mg/dL [facility] Work Phone: Otheron 10-03-2020 Test Performed by [facility], [address] [place] [address] [facility] Work Phone: Interpretation and review of laboratory results Abnormal [facility] Work Phone: Test Performed by [facility], [address] [place] [id number] [place], [place] [address]A Work Phone: TSH without Reflexon 021 TSH Qn 2.826 u[IU]/mL 0.465 - 4.680 u[IU]/mL [facility] Work Phone: Test Performed by [facility], [address] [place] [phone] [place], [place] [address]A Work Phone: Thyroid Stim. Hormoneon 04-0 Thyroid Stim. Hormone 2.826 u[IU]/mL Normal 0.46 5-4.68 0 [facility] Comment on above: Performed By: #### B NP3, BMP3, MG3 #### [employer] [address] [place] [address] Troponinon 10-03-2020 Troponin I.cardiac [Mass/Vol] 0.026 ng/mL 0.000 - 0.034 ng/mL [facility] Work Phone: Comment on above: . Test Performed by [facility], [address] [place] [phone] [facility] Work Phone: Troponin Ion 10-03-2020 Troponin I.cardiac [Mass/Vol] 0.026 ng/mL Normal 0.000-0.03 4 [facility] Comment on above: Result Comment: . Performed By: #### B MP3, HEMDF #### [employer] [facility] [place] [address] Vitamin B12on 10-03-2020 Cobalamin (Vitamin B12) [Mass/Vol] 737 pg/mL Normal 239-931 [facility] Comment on above: Performed By: #### B NP3, BMP3, MG3 #### [facility] [employer] [address] [place] [address] Cobalamin (Vitamin B12) [Mass/Vol] 737 pg/mL 239 - 931 pg/mL [facility] Work Phone: XR CHEST PORTABLEon 10-04-19 Patient Name: AMAURY DAVIS Diagnostic Radiology ACCESSION EXAM DATE/TIME PROCEDURE ORDERING PROVIDER [id number] 10/03/2020 01:59 EDT CR Chest Portable RUSSELL HICKEY CPT code 02719 Reason For Exam (CR Chest Portable) Right [...] WILLIAM Transcribed Date and Time: 10/03/2020 2:24 [facility] Work Phone: Jax, [facility] Incoming Radiology Results From [facility] - 10/03/2020 2:31 AM EDT Patient Name: AMAURY BLANK Diagnostic Radiology ACCESSION EXAM DATE/TIME PROCEDURE ORDERING PROVIDER [id number] 10/03/2020 01:59 EDT CR Chest Portable RUSSELL HICKEY CPT code 46325 Reason For Exam (CR Chest Portable) Right [...] WILLIAM Transcribed Date and Time: 10/03/2020 2:24 [facility] [place] Work Phone: CULT/STAIN - AEROBIC AND RACHEL EROBICon 09-24-2020 CULT/STAIN - AEROBIC AND ANAEROBIC STAIN GRAM --> Status: F Rare polymorphonuclear cells/lpf. No organisms seen. No organisms seen. CULT./ST. BACTERIA --> Status: F No growth at 3 days. CULTURE ANAEROBE --> Status: F No growth of anaerobes at 5 days. Normal [facility] Comment on above: Performed By: #### C /TBC #### [address] Basic Metabolic Panelon 08-29 Anion gap [Moles/Vol] 3 mmol/L Normal 3-13 [facility] Comment on above: Performed By: #### B MP3, HEMDF #### [address] Calcium [Mass/Vol] 8.6 mg/dL Normal 8.4-10.4 [facility] Comment on above: Performed By: #### B MP3, HEMDF #### [address] CO2 [Moles/Vol] 21 mmol/L Low 22-30 [facility] Comment on above: Performed By: #### B MP3, HEMDF #### [address] [place] Glucose [Mass/Vol] 96 mg/dL Normal 70-100 [facility] Comment on above: Performed By: #### B MP3, HEMDF #### [facility] [address] [place], [place] Urea nitrogen [Mass/Vol] 38 mg/dL High 7-20 [facility] Comment on above: Performed By: #### B MP3, HEMDF #### [address] [place], [place] Creatinine [Mass/Vol] 1.85 mg/dL High 0.52-1.25 [facility] Comment on above: Performed By: #### B MP3, HEMDF #### [address] [address] GFR/1.73 sq M.predicted among blacks MDRD (S/P/Bld) [Vol rate/Area] 39.2 mL/min/{1.73_m2} Abnormal >60 [facility] Comment on above: Performed By: #### B MP3, HEMDF #### [address] [place] [address] GFR/1.73 sq M.predicted among non-blacks MDRD (S/P/Bld) [Vol rate/Area] 33.8 mL/min/{1.73_m2} Abnormal >60 [facility] Comment on above: Result Comment: KDIG O [...] Performed By: #### B MP3, HEMDF #### [facility] [address] [place] [address] Potassium [Moles/Vol] 5.3 mmol/L High 3.5-5.1 [facility] Comment on above: Performed By: #### B MP3, HEMDF #### [facility] [address] [place] [address] Sodium [Moles/Vol] 129 mmol/L Low 135-145 [facility] Comment on above: Performed By: #### B MP3, HEMDF #### [facility] [address] [place] [address] Chloride [Moles/Vol] 105 mmol/L Normal 98-107 [facility] Comment on above: Performed By: #### B MP3, HEMDF #### [facility] [address] [place] [address] Anion gap [Moles/Vol] 3 mmol/L 3 - 13 mmol/L [facility] [place] Work Phone: Calcium [Mass/Vol] 8.6 mg/dL 8.4 - 10. 4 mg/dL [facility] Work Phone: Chloride [Moles/Vol] 105 mmol/L 98 - 10 7 mmol/L [facility] Work Phone: CO2 [Moles/Vol] 21 mmol/L Low 22 - 30 mmol/L [facility] Work Phone: Creatinine [Mass/Vol] 1.85 mg/dL High 0.52 - 1.25 mg/dL [facility] Work Phone: EGFR IF NonAfrican Chadian 33.8 mL/min Abnormal >60 [facility] Work Phone: Comment on above: KDIGO [...] 39.2 mL/min/{1.73_m2} Abnormal >60 [facility] Work Phone: [phone] Glucose [Mass/Vol] 96 mg/dL 70 - 100 mg/dL [facility] Work Phone: [phone] Interpretation and review of laboratory results Abnormal [facility] Work Phone: [phone] Potassium [Moles/Vol] 5.3 mmol/L High 3.5 - 5.1 mmol/L [facility] Work Phone: [phone] Sodium [Moles/Vol] 129 mmol/L Low 135 - 145 mmol/L [facility] Work Phone: [phone] Urea nitrogen [Mass/Vol] 38 mg/dL High 7 - 20 mg/dL [facility] Work Phone: [phone] Test Performed by [facility], [address] [place] [phone] [facility] Work Phone: [phone] CBC Auto Differentialon 08-29 Absolute Baso # 0.0 10*3/uL 0.0 - 0.2 10*3/uL [facility] Work Phone: [phone] Absolute Neut # 9.4 10*3/uL High 1.8 - 7.0 10*3/uL [facility] Work Phone: [phone] Basophils/100 WBC (Bld) 0.2 % 0.0 - 2.0 % [facility] Work Phone: [phone] Eosinophils (Bld) [#/Vol] 0.0 10*3/uL 0.0 - 0.5 10*3/uL [facility] Work Phone: [phone] Eosinophils/100 WBC (Bld) 0.1 % Low 1.0 - 6.0 % [facility] Work Phone: [phone] Erythrocyte distribution width (RBC) [Ratio] 15.5 % High 11.5 - 14.5 % [facility] Work Phone: [phone] Granulocytes/100 WBC (Bld) 87.9 % High 40.0 - 80.0 % [facility] Work Phone: [phone] Hematocrit (Bld) [Volume fraction] 26.5 % Low 40.0 - 52.0 % [employer] Work Phone: [phone] Hemoglobin (Bld) [Mass/Vol] 8.7 g/dL Low 13.0 - 18.0 g/dL [employer] Work Phone: [phone] Interpretation and review of laboratory results Abnormal [employer] Work Phone: [phone] Lymphocytes (Bld) [#/Vol] 0.7 10*3/uL Low 1.0 - 4.3 10*3/uL [employer] Work Phone: [phone] Lymphocytes/100 WBC (Bld) 6.2 % Low 20.0 - 40.0 % [employer] Work Phone: [phone] MCH (RBC) [Entitic mass] 33.4 pg 26.0 - 34.0 pg [employer] Work Phone: [phone] MCHC (RBC) [Mass/Vol] 33.0 % 32.0 - 36.0 % [employer] Work Phone: [phone] MCV (RBC) [Entitic vol] 101.0 fL High 80.0 - 98.0 fL [facility] Work Phone: [phone] Monocytes (Bld) [#/Vol] 0.6 10*3/uL 0.0 - 0.8 10*3/uL [facility] Work Phone: [phone] Monocytes/100 WBC (Bld) 5.6 % 2.0 - 10.0 % [facility] Work Phone: [phone] Platelet mean volume (Bld) [Entitic vol] 7.4 fL 7.4 - 10.4 fL [facility] Work Phone: [phone] Platelets (Bld) [#/Vol] 180 10*3/uL 140 - 440 10*3/uL [facility] [place] Work Phone: RBC (Bld) [#/Vol] 2.62 10*6/uL Low 4.40 - 5.90 10*6/uL [facility] Work Phone: WBC (Bld) [#/Vol] 10.7 10*3/uL 3.6 - 10.7 10*3/uL [facility] Work Phone: Test Performed by [facility], [address] [place] [phone] [facility] [place] Work Phone: CR Chest Portableon 09-22-19 CR Chest Portable Patient Name: AMAURY DAVIS Diagnostic Radiology ACCESSION EXAM DATE/TIME PROCEDURE ORDERING PROVIDER [phone] 09/21/2020 11:36 EDT CR Chest Portable CLARICE RAUSCH CPT code 11700 Reason For Exam (CR Chest Portable) line [...] Transcribed Date and Time: 09/21/2020 11:21 Normal [facility] CR Chest Portable Patient Name: AMAURY DAVIS Diagnostic Radiology ACCESSION EXAM DATE/TIME PROCEDURE ORDERING PROVIDER [id number] 09/21/2020 05:45 EDT CR Chest Portable [place] ILZKYLAH CPT code 46250 Reason For Exam (CR Chest Portable) Right [...] Transcribed Date and Time: 09/21/2020 7:29 Normal [facility] Hemogram w/ Autodiffon 09-21 Abs Baso Cnt 0.0 10*3/uL Normal 0.0-0.2 [facility] Comment on above: Performed By: #### B MP3, HEMDF #### [address] Abs Neutrophile Cnt 9.4 10*3/uL High 1.8-7.0 [facility] Comment on above: Performed By: #### B MP3, HEMDF #### [address] [place] [address] Basophils/100 WBC (Bld) 0.2 % Normal 0.0-2.0 [facility] Comment on above: Performed By: #### B MP3, HEMDF #### [address] [place] Eosinophils (Bld) [#/Vol] 0.0 10*3/uL Normal 0.0-0.5 [facility] Comment on above: Performed By: #### B MP3, HEMDF #### [address] [place], [place] Eosinophils/100 WBC (Bld) 0.1 % Low 1.0-6.0 [facility] Comment on above: Performed By: #### B MP3, HEMDF #### [address] [place], [place] Erythrocyte distribution width (RBC) [Ratio] 15.5 % High 11.5-14.5 [facility] Comment on above: Performed By: #### B MP3, HEMDF #### [address] [place], [place] Granulocytes/100 WBC (Bld) 87.9 % High 40.0-80.0 [facility] Comment on above: Performed By: #### B MP3, HEMDF #### [address] [place], [place] Hematocrit (Bld) [Volume fraction] 26.5 % Low 40.0-52.0 [facility] Comment on above: Performed By: #### B MP3, HEMDF #### [address] [place], [place] Hemoglobin (Bld) [Mass/Vol] 8.7 g/dL Low 13.0-18.0 [facility] Comment on above: Performed By: #### B MP3, HEMDF #### [address] [place], [place] Lymphocytes (Bld) [#/Vol] 0.7 10*3/uL Low 1.0-4.3 [facility] Comment on above: Performed By: #### B MP3, HEMDF #### [address] [place], [place] Lymphocytes/100 WBC (Bld) 6.2 % Low 20.0-40.0 [facility] Comment on above: Performed By: #### B MP3, HEMDF #### [address] [place], [place] MCH (RBC) [Entitic mass] 33.4 pg Normal 26.0-34.0 [facility] Comment on above: Performed By: #### B MP3, HEMDF #### [address] [place] MCHC 33.0 % Normal 32.0-36.0 [facility] Comment on above: Performed By: #### B MP3, HEMDF #### [address] [place], [place] MCV (RBC) [Entitic vol] 101.0 fL High 80.0-98.0 [facility] Comment on above: Performed By: #### B MP3, HEMDF #### [address] [place], [place] Monocytes (Bld) [#/Vol] 0.6 10*3/uL Normal 0.0-0.8 [facility] Comment on above: Performed By: #### B MP3, HEMDF #### [address] [place], [place] Monocytes/100 WBC (Bld) 5.6 % Normal 2.0-10.0 [facility] Comment on above: Performed By: #### B MP3, HEMDF #### [address] [place], [place] Platelet mean volume (Bld) [Entitic vol] 7.4 fL Normal 7.4-10.4 [facility] Comment on above: Performed By: #### B MP3, HEMDF #### [address] [place], [place] Platelets (Bld) [#/Vol] 180 10*3/uL Normal 140-440 [facility] Comment on above: Performed By: #### B MP3, HEMDF #### [address] [place], [place] RBC (Bld) [#/Vol] 2.62 10*6/uL Low 4.40-5.90 [facility] Comment on above: Performed By: #### B MP3, HEMDF #### [facility] [address] [place] [address] WBC (Bld) [#/Vol] 10.7 10*3/uL Normal 3.6-10.7 [facility] Comment on above: Performed By: #### B MP3, HEMDF #### [facility] [address] [place] [address] XR CHEST PORTABLEon 09-22-19 Jax, [facility] Incoming Radiology Results From [facility] - 09/21/2020 11:36 AM EDT Patient Name: AMAURY BLANK Diagnostic Radiology ACCESSION EXAM DATE/TIME PROCEDURE ORDERING PROVIDER [id number] 09/21/2020 11:36 EDT CR Chest Portable CLARICE RAUSCH CPT code 04314 Reason For Exam (CR Chest Portable) line [...] [place]LAN Transcribed Date and Time: 09/21/2020 11:21 [facility] [place] Work Phone: Patient Name: AMAURY DAVIS Diagnostic Radiology ACCESSION EXAM DATE/TIME PROCEDURE ORDERING PROVIDER [id number] 09/21/2020 11:36 EDT CR Chest Portable CLARICE RAUSCH CPT code 48453 Reason For Exam (CR Chest Portable) line [...] [facility] Work Phone: Patient Name: AMAURY DAVIS [facility]#: [id number] Diagnostic Radiology ACCESSION EXAM DATE/TIME PROCEDURE ORDERING PROVIDER [phone] 09/21/2020 05:45 EDT CR Chest Portable [place] LIZ SARAH CPT code 49284 Reason For Exam (CR Chest Portable) Right [...] Phone: Jax, [facility] Incoming Radiology Results From [facility] - 09/21/2020 7:37 AM EDT [facility]: [id number] Radiology ACCESSION EXAM DATE/TIME PROCEDURE ORDERING PROVIDER [id number] 09/21/2020 05:45 EDT CR Chest Portable [place] LIZ SARAH CPT code 90359 Reason For Exam (CR Chest Portable) Right [...] 08-29 Calcium [Mass/Vol] 8.7 mg/dL Normal 8.4-10.4 [facility] Comment on above: Performed By: #### B MP3, HEMDF #### [facility] [address], [place] Glucose [Mass/Vol] 186 mg/dL High 70-100 [facility] Comment on above: Performed By: #### B MP3, HEMDF #### [facility] [address], [place] Anion gap [Moles/Vol] 6 mmol/L Normal 3-13 [facility] Comment on above: Performed By: #### B MP3, HEMDF #### [facility] [address], [place] CO2 [Moles/Vol] 18 mmol/L Low 22-30 [facility] Comment on above: Performed By: #### B MP3, HEMDF #### [facility] [address], [place] Creatinine [Mass/Vol] 1.73 mg/dL High 0.52-1.25 [facility] Comment on above: Performed By: #### B MP3, HEMDF #### [facility] [address], [place] GFR/1.73 sq M.predicted among blacks MDRD (S/P/Bld) [Vol rate/Area] 42.5 mL/min/{1.73_m2} Abnormal >60 [facility] Comment on above: Performed By: #### B MP3, HEMDF #### [facility] [address], [place] GFR/1.73 sq M.predicted among non-blacks MDRD (S/P/Bld) [Vol rate/Area] 36.7 mL/min/{1.73_m2} Abnormal >60 [facility] Comment on above: Result Comment: KDIG O [...] Performed By: #### B MP3, HEMDF #### [facility] [address], [place] Urea nitrogen [Mass/Vol] 40 mg/dL High 7-20 [facility] Comment on above: Performed By: #### B MP3, HEMDF #### [address] [place], [place] Chloride [Moles/Vol] 106 mmol/L Normal 98-107 [facility] Comment on above: Performed By: #### B MP3, HEMDF #### [facility] [address], [place] Potassium [Moles/Vol] 5.2 mmol/L High 3.5-5.1 [facility] Comment on above: Performed By: #### Terese MP3, HEMDF #### [address] [place], [place] Sodium [Moles/Vol] 131 mmol/L Low 135-145 [facility] Comment on above: Performed By: #### B MP3, HEMDF #### [address] [place] [address] Anion gap [Moles/Vol] 6 mmol/L 3 - 13 mmol/L [facility] [place] Work Phone: Calcium [Mass/Vol] 8.7 mg/dL 8.4 - 10. 4 mg/dL [facility] [place] Work Phone: Chloride [Moles/Vol] 106 mmol/L 98 - 10 7 mmol/L [facility] [place] Work Phone: CO2 [Moles/Vol] 18 mmol/L Low 22 - 30 mmol/L [facility] [place] Work Phone: Creatinine [Mass/Vol] 1.73 mg/dL High 0.52 - 1.25 mg/dL [facility] Work Phone: EGFR IF NonAfrican Chadian 36.7 mL/min Abnormal >60 [facility] Work Phone: [...] mg/dL [facility] Work Phone: Test Performed by [facility], [address] [place] [id number] [facility] Work Phone: CBC Auto Differentialon 03-2 Absolute Baso # 0.0 10*3/uL 0.0 - 0.2 10*3/uL [facility] Work Phone: [phone] Absolute Neut # 7.0 10*3/uL 1.8 - 7.0 10*3/uL [facility] Work Phone: [phone] Basophils/100 WBC (Bld) 0.1 % 0.0 - 2.0 % [facility] Work Phone: [phone] Eosinophils (Bld) [#/Vol] 0.0 10*3/uL 0.0 - 0.5 10*3/uL [facility] Work Phone: [phone] Eosinophils/100 WBC (Bld) 0.0 % Low 1.0 - 6.0 % [facility] Work Phone: [phone] Erythrocyte distribution width (RBC) [Ratio] 15.2 % High 11.5 - 14.5 % [employer] Work Phone: [phone] Granulocytes/100 WBC (Bld) 93.9 % High 40.0 - 80.0 % [facility] Work Phone: [phone] Hematocrit (Bld) [Volume fraction] 27.4 % Low 40.0 - 52.0 % [facility] Work Phone: [phone] Hemoglobin (Bld) [Mass/Vol] 8.9 g/dL Low 13.0 - 18.0 g/dL [facility] Work Phone: [phone] Interpretation and review of laboratory results Abnormal [employer] Work Phone: [phone] Lymphocytes (Bld) [#/Vol] 0.3 10*3/uL Low 1.0 - 4.3 10*3/uL [facility] Work Phone: [phone] Lymphocytes/100 WBC (Bld) 3.6 % Low 20.0 - 40.0 % [employer] Work Phone: [phone] MCH (RBC) [Entitic mass] 33.1 pg 26.0 - 34.0 pg [facility] Work Phone: [phone] MCHC (RBC) [Mass/Vol] 32.5 % 32.0 - 36.0 % [employer] Work Phone: [phone] MCV (RBC) [Entitic vol] 101.5 fL High [...] 10*3/uL [facility] Work Phone: Test Performed by [facility], [address] [place] [address] [employer] Work Phone: CR Chest Portableon 09-21-19 CR Chest Portable Patient Name: AMAURY DAVIS Diagnostic Radiology ACCESSION EXAM DATE/TIME PROCEDURE ORDERING PROVIDER [id number] 09/20/2020 05:52 EDT CR Chest Portable [place] LIZ SARAH CPT code 93184 Reason For Exam (CR Chest Portable) Right [...] Transcribed Date and Time: 09/20/2020 7:33 Normal [facility] CULTURE MYCOBACTERIA Conc.on 09-20-2020 CULTURE MYCOBACTERIA Conc. CULTURE MYCOBACTERIA Conc. --> Status: F No acid-fast bacilli isolated after 6 weeks incubation. STAIN ACID-FAST --> Status: F No acid-fast bacilli seen in smear. 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: [facility] : 1940 Requested By: KYLAH LIZ Order Number: [id number] Reading MD: Nicki Raymundo Measurements Intervals [place] Rate: 53 P: PA: QRS: -30 QRSD: 115 T: -85 QT: 448 QTc: 421 Interpretive Statements Atrial flutter with predominant 4:1 AV block Nonspecific intraventricular conduction delay 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, old Electronically Signed On 09-20-2020 17:32:31 EDT by Nicki KELLY [facility]: 2020-09-19 Pat Name: Amaury Blank Department: 1[facility] Room: 1HLU Gender: M 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: MARLON : 1940 Requested By: KYLAH LIZ Order Number: [id number] Reading : Nicki Raymundo Measurements Intervals [place] Rate: 53 P: PA: QRS: -30 QRSD: 115 T: -85 QT: 448 QTc: 421 Interpretive Statements Atrial flutter with predominant 4:1 AV block Nonspecific intraventricular conduction delay 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 - Method: Direct Exam by Calcofluor Stain [facility] Work Phone: Test Performed by [facility], [address] [place] [address] [employer] Work Phone: Hemogram w/ Autodiffon 09-20 Abs Baso Cnt 0.0 10*3/uL Normal 0.0-0.2 [facility] Comment on above: Performed By: #### B MP3, HEMDF #### [address] [address] Abs Neutrophile Cnt 7.0 10*3/uL Normal 1.8-7.0 [facility] Comment on above: Performed By: #### B MP3, HEMDF #### [address] [address] Basophils/100 WBC (Bld) 0.1 % Normal 0.0-2.0 [facility] Comment on above: Performed By: #### B MP3, HEMDF #### [address] [address] Eosinophils (Bld) [#/Vol] 0.0 10*3/uL Normal 0.0-0.5 [facility] Comment on above: Performed By: #### B MP3, HEMDF #### [address] [address] Eosinophils/100 WBC (Bld) 0.0 % Low 1.0-6.0 [facility] Comment on above: Performed By: #### B MP3, HEMDF #### [address] [address] Granulocytes/100 WBC (Bld) 93.9 % High 40.0-80.0 [facility] Comment on above: Performed By: #### B MP3, HEMDF #### [facility] [address] [place], [place] Lymphocytes (Bld) [#/Vol] 0.3 10*3/uL Low 1.0-4.3 [facility] Comment on above: Performed By: #### B MP3, HEMDF #### [address] [place], [place] Lymphocytes/100 WBC (Bld) 3.6 % Low 20.0-40.0 [facility] Comment on above: Performed By: #### B MP3, HEMDF #### [address] [place], [place] Monocytes (Bld) [#/Vol] 0.2 10*3/uL Normal 0.0-0.8 [facility] Comment on above: Performed By: #### B MP3, HEMDF #### [address] [place], [place] Monocytes/100 WBC (Bld) 2.4 % Normal 2.0-10.0 [facility] Comment on above: Performed By: #### B MP3, HEMDF #### [address] [place] Erythrocyte distribution width (RBC) [Ratio] 15.2 % High 11.5-14.5 [facility] Comment on above: Performed By: #### B MP3, HEMDF #### [address] Hematocrit (Bld) [Volume fraction] 27.4 % Low 40.0-52.0 [facility] Comment on above: Performed By: #### B MP3, HEMDF #### [address] Hemoglobin (Bld) [Mass/Vol] 8.9 g/dL Low 13.0-18.0 [facility] Comment on above: Performed By: #### B MP3, HEMDF #### [address] [place] [place] MCH (RBC) [Entitic mass] 33.1 pg Normal 26.0-34.0 [facility] Comment on above: Performed By: #### B MP3, HEMDF #### [facility] [address] MCHC 32.5 % Normal 32.0-36.0 [facility] Comment on above: Performed By: #### B MP3, HEMDF #### [address] [place] MCV (RBC) [Entitic vol] 101.5 fL High 80.0-98.0 [facility] Comment on above: Performed By: #### B MP3, HEMDF #### [address] [place], [place] Platelet mean volume (Bld) [Entitic vol] 8.6 fL Normal 7.4-10.4 [facility] Comment on above: Performed By: #### Terese SHAY, HEMDF #### [address], [place] Platelets (Bld) [#/Vol] 152 10*3/uL Normal 140-440 [facility] Comment on above: Performed By: #### B JASPAL, HEMDF #### [address] [place] RBC (Bld) [#/Vol] 2.70 10*6/uL Low 4.40-5.90 [facility] Comment on above: Performed By: #### B MP3, HEMDF #### [address] WBC (Bld) [#/Vol] 7.6 10*3/uL Normal 3.6-10.7 [facility] Comment on above: Performed By: #### B MP3, HEMDF #### [address] [place] STAIN FUNGUSon 09-20-2020 STAIN FUNGUS STAIN FUNGUS --> Sta tus: F No fungal elements seen. - Method: Direct Exam by Calcofluor Stain - Method: Direct Exam by Calcofluor Stain Normal [facility] Comment on above: Performed By: #### C /TBC #### [facility] [address] [place] [address] Surgical Pathologyon 021 Sodium [Moles/Vol] SEE BELOW [employer] Work Phone: [phone] [facility] PATHOLOG[facility]ORATORY MEDICINE [address], [place] [phone] FINAL SURGICAL PATHOLOGY REPORT NAME: AMAURY BLANK N [id number] : 1940 [address] [facility] NO.: [id number] LOCATION: [address] [place] [address] 25 PROCEDURE 09/19/2020 DATE: SURGEON: KASSANDRA DAVIDSON MD RECEIVED 09/19/2020 DATE: ATTENDING: KASSANDRA DAVIDSON MD REPORT DATE: 09/20/2020 COPIES TO: DIAGNOSIS: RIGHT PLEURAL BIOPSY - MARKED ORGANIZING ACUTE AND CHRONIC INFLAMMATION Comment: Biopsy consists of pleural tissue with extensive acute and chronic inflammation, with granulation tissue. 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 No evidence of granulomas or malignancy. PA/PA Signature> AMILCAR HYDE M.D. CLINICAL INFORMATION: Not [...] characteristics determined by the clinical laboratories of [facility]. They have not been cleared by the [...] negativity on decalcified specimens. Professional Performing Location: [place] [address]. DEPARTMENT OF PATHOLOGY AND LABORATORY MEDICINE [place], [place] [address] [facility] [place] Work Phone: XR CHEST PORTABLEon 09-21-19 Jax, [facility] - 09/20/2020 7:37 AM EDT Patient Name: AMAURY BLANK Diagnostic Radiology ACCESSION EXAM DATE/TIME PROCEDURE ORDERING PROVIDER [id number] 09/20/2020 05:52 EDT CR Chest Portable [place] LIZ SARAH CPT code 64527 Reason For Exam (CR Chest Portable) Right [...] [facility] Work Phone: Patient Name: [facility]IS [id number] Diagnostic Radiology ACCESSION EXAM DATE/TIME PROCEDURE ORDERING PROVIDER [id number] 09/20/2020 05:52 EDT CR Chest Portable [place] LIZ EKRON CPT code 61950 Reason For Exam (CR Chest Portable) Right [...] gap [Moles/Vol] 5 mmol/L Normal 3-13 [facility] Comment on above: Performed By: #### B NP3, BMP3, MG3 #### [facility] [address], [place] Calcium [Mass/Vol] 8.6 mg/dL Normal 8.4-10.4 [facility] Comment on above: Performed By: #### B NP3, BMP3, MG3 #### [facility] [address], [place] CO2 [Moles/Vol] 21 mmol/L Low 22-30 [facility] Comment on above: Performed By: #### B NP3, BMP3, MG3 #### [facility] [address], [place] Creatinine [Mass/Vol] 1.79 mg/dL High 0.52-1.25 [facility] [facility] Comment on above: Performed By: #### B NP3, BMP3, MG3 #### [facility] [address], [place] GFR/1.73 sq M.predicted among blacks MDRD (S/P/Bld) [Vol rate/Area] 40.8 mL/min/{1.73_m2} Abnormal >60 [facility] Comment on above: Performed By: #### B NP3, BMP3, MG3 #### [facility] [address], [place] GFR/1.73 sq M.predicted among non-blacks MDRD (S/P/Bld) [Vol rate/Area] 35.2 mL/min/{1.73_m2} Abnormal >60 [facility] Comment on above: Result Comment: KDIG O [...] By: #### B NP3, BMP3, MG3 #### [facility] [address] [place] [address] Glucose [Mass/Vol] 106 mg/dL High 70-100 [facility] Comment on above: Performed By: #### B NP3, BMP3, MG3 #### [facility] [address] [place] [address] Urea nitrogen [Mass/Vol] 44 mg/dL High 7-20 [facility] Comment on above: Performed By: #### B NP3, BMP3, MG3 #### [facility] [address] [place] [address] Chloride [Moles/Vol] 106 mmol/L Normal 98-107 [facility] Comment on above: Performed By: #### B NP3, BMP3, MG3 #### [facility] [address] [place] [address] Potassium [Moles/Vol] 4.8 mmol/L Normal 3.5-5.1 [facility] Comment on above: Performed By: #### B NP3, BMP3, MG3 #### [facility] [address] [place] [address] Sodium [Moles/Vol] 133 mmol/L Low 135-145 [facility] Comment on above: Performed By: #### B NP3, BMP3, MG3 #### [facility] [address] [place] [address] Anion gap [Moles/Vol] 5 mmol/L 3 - 13 mmol/L [facility] [place] Work Phone: Calcium [Mass/Vol] 8.6 mg/dL 8.4 - 10. 4 mg/dL [facility] [place] Work Phone: Chloride [Moles/Vol] 106 mmol/L 98 - 10 7 mmol/L [facility] [place] Work Phone: CO2 [Moles/Vol] 21 mmol/L Low 22 - 30 mmol/L [facility] Work Phone: Creatinine [Mass/Vol] 1.79 mg/dL High 0.52 - 1.25 mg/dL [facility] Work Phone: EGFR IF NonAfrican Chadian 35.2 mL/min Abnormal >60 [facility] Work Phone: [...] mg/dL [facility] Work Phone: Test Performed by [address] [address] [facility] Work Phone: [phone] CBC Auto Differentialon 08-29 Erythrocyte distribution width (RBC) [Ratio] 14.8 % High 11.5 - 14.5 % [facility] Work Phone: [phone] Hematocrit (Bld) [Volume fraction] 28.3 % Low 40.0 - 52.0 % [facility] Work Phone: [phone] Hemoglobin (Bld) [Mass/Vol] 9.4 g/dL Low 13.0 - 18.0 g/dL [facility] Work Phone: [phone] Interpretation and review of laboratory results Abnormal [facility] Work Phone: [phone] MCH (RBC) [Entitic mass] 33.2 pg 26.0 - 34.0 pg [facility] Work Phone: [phone] MCHC (RBC) [Mass/Vol] 33.3 % 32.0 - 36.0 % [facility] Work Phone: [phone] MCV (RBC) [Entitic vol] 99.9 fL High 80.0 - 98.0 fL [facility] Work Phone: [phone] Platelet mean volume (Bld) [Entitic vol] 7.8 fL 7.4 - 10.4 fL [facility] Work Phone: [phone] Platelets (Bld) [#/Vol] 155 10*3/uL 140 - 440 10*3/uL [facility] Work Phone: [phone] RBC (Bld) [#/Vol] 2.84 10*6/uL Low 4.40 - 5.90 10*6/uL [facility] Work Phone: [phone] WBC (Bld) [#/Vol] 6.4 10*3/uL 3.6 - 10.7 10*3/uL [facility] Work Phone: [phone] Test Performed by [facility], [address] [place] [address] [facility] Work Phone: [phone] CR Chest Portableon 09-20-19 21 CR Chest Portable Patient Name: AMAURY DAVIS Diagnostic Radiology ACCESSION EXAM DATE/TIME PROCEDURE ORDERING PROVIDER [id number] 09/19/2020 10:32 EDT CR Chest Portable Chad[place] LIZ KYLAH CPT code 84675 Reason For Exam (CR Chest Portable) Chest [...] Transcribed Date and Time: 09/19/2020 10:23 Normal [facility] CR Chest Portable [id number] Radiology ACCESSION EXAM DATE/TIME PROCEDURE ORDERING PROVIDER [id number] 09/19/2020 06:56 EDT CR Chest Portable Chadwick LIZ, KYLAH CPT code 36309 Reason For Exam (CR Chest Portable) Right [...] Transcribed Date and Time: 09/19/2020 7:57 Normal [facility] Hemogram w/ Autodiffon 09-19 Erythrocyte distribution width (RBC) [Ratio] 14.8 % High 11.5-14.5 [facility] Comment on above: Performed By: #### B NP3, BMP3, MG3 #### [facility] [address], [place] Hematocrit (Bld) [Volume fraction] 28.3 % Low 40.0-52.0 [facility] Comment on above: Performed By: #### B NP3, BMP3, MG3 #### [place] [address], [place] Hemoglobin (Bld) [Mass/Vol] 9.4 g/dL Low 13.0-18.0 [facility] Comment on above: Performed By: #### B NP3, BMP3, MG3 #### [place] [address], [place] MCH (RBC) [Entitic mass] 33.2 pg Normal 26.0-34.0 [facility] Comment on above: Performed By: #### B NP3, BMP3, MG3 #### [place] [address], [place] MCHC 33.3 % Normal 32.0-36.0 [facility] Comment on above: Performed By: #### B NP3, BMP3, MG3 #### [place] [address], [place] MCV (RBC) [Entitic vol] 99.9 fL High 80.0-98.0 S [facility] Comment on above: Performed By: #### B NP3, BMP3, MG3 #### [place] [address], [place] Platelet mean volume (Bld) [Entitic vol] 7.8 fL Normal 7.4-10.4 [facility] Comment on above: Performed By: #### B NP3, BMP3, MG3 #### [place] [address], [place] Platelets (Bld) [#/Vol] 155 10*3/uL Normal 140-440 [facility] Comment on above: Performed By: #### B NP3, BMP3, MG3 #### [place] [address], [place] RBC (Bld) [#/Vol] 2.84 10*6/uL Low 4.40-5.90 [facility] Comment on above: Performed By: #### B NP3, BMP3, MG3 #### [place] [address], [place] WBC (Bld) [#/Vol] 6.4 10*3/uL Normal 3.6-10.7 [facility] Comment on above: Performed By: #### B NP3, BMP3, MG3 #### [place] [address], [place] Manual Diffon 09-19-2020 Abs Baso Cnt 0.1 10*3/uL Normal 0.0-0.2 [facility] Comment on above: Performed By: #### B NP3, BMP3, MG3 #### [place] [address], [place] Abs Eosin Cnt 0.0 10*3/uL Normal 0.0-0.5 [facility] Comment on above: Performed By: #### B NP3, BMP3, MG3 #### [place] [address], [place] Abs Lymph Cnt 1.1 10*3/uL Normal 1.1-4.5 [facility] Comment on above: Performed By: #### B NP3, BMP3, MG3 #### [place] [address], [place] Abs Monocyte Cnt 0.3 10*3/uL Normal 0.2-1.1 [facility] Comment on above: Performed By: #### B NP3, BMP3, MG3 #### [address] Abs Neutrophile Cnt 4.9 10*3/uL Normal 2.2-8.2 [facility] Comment on above: Performed By: #### B NP3, BMP3, MG3 #### [facility] [address], [place] Bands 0 % Normal 0-3 [facility] Comment on above: Performed By: #### B NP3, BMP3, MG3 #### [facility] [address], [place] Basophils 1 % Normal 0-2 [facility] Comment on above: Performed By: #### B NP3, BMP3, MG3 #### [facility] [address], [place] Anil Cells Slight Normal [facility] Comment on above: Performed By: #### B NP3, BMP3, MG3 #### [facility] [address], [place] Cells counted 100 Normal [facility] Comment on above: Performed By: #### B NP3, BMP3, MG3 #### [facility] [address], [place] Elliptocytes Slight Normal [facility] Comment on above: Performed By: #### B NP3, BMP3, MG3 #### [facility] [address], [place] Eosinophils 0 % Low 1-6 [facility] Comment on above: Performed By: #### B NP3, BMP3, MG3 #### [facility] [address], [place] Lymphocytes 17 % Low 20-40 [facility] Comment on above: Performed By: #### B NP3, BMP3, MG3 #### [facility] [address], [place] Monocytes 5 % Normal 2-10 [facility] Comment on above: Performed By: #### B NP3, BMP3, MG3 #### [facility] [address], [place] Ovalocytes Slight Normal [facility] Comment on above: Performed By: #### B NP3, BMP3, MG3 #### [facility] [address], [place] Poikilocytosis Slight Normal [facility] Comment on above: Performed By: #### B NP3, BMP3, MG3 #### [facility] [address] [place] [address] RBC Morphology ABNORMAL Normal [facility] Comment on above: Performed By: #### B NP3, BMP3, MG3 #### [facility] [address] [place] [address] Seg Neutrophils 77 % Normal 40-80 [facility] Comment on above: Performed By: #### B NP3, BMP3, MG3 #### [facility] [address] [place] [address] Manual Differentialon 2020 Absolute Baso # 0.1 10*3/uL 0.0 - 0.2 10*3/uL [facility] Work Phone: [phone] Absolute Eos # 0.0 10*3/uL 0.0 - 0.5 10*3/uL [facility] Work Phone: [phone] Absolute Lymph # 1.1 10*3/uL 1.1 - 4.5 10*3/uL [facility] Work Phone: [phone] Absolute [place] # 0.3 10*3/uL 0.2 - 1.1 10*3/uL [facility] Work Phone: [phone] Absolute Neut # 4.9 10*3/uL 2.2 - 8.2 10*3/uL [facility] Work Phone: [phone] Bands 0 % 0 - 3 % [facility] Work Phone: [phone] Basophils 1 % 0 - 2 % [facility] Work Phone: [phone] Rexford Cells Slight [facility] Work Phone: [phone] Elliptocytes Slight [facility] Work Phone: [phone] Eosinophils 0 % Low 1 - 6 % [facility] Work Phone: [phone] Interpretation and review of laboratory results Abnormal [facility] Work Phone: [phone] Lymphocytes 17 % Low 20 - 40 % [facility] Work Phone: [phone] Monocytes 5 % 2 - 10 % [facility] Work Phone: [phone] Ovalocytes Slight [facility] Work Phone: Poikilocytes Slight [facility] Work Phone: RBC morphology finding Nom (Bld) ABNORMAL [facility] Work Phone: Seg Neutrophils 77 % 40 - 80 % [facility] Work Phone: TOTAL CELLS COUNTED 100 [facility] Work Phone: Test Performed by [facility], [address] [place] [address] [facility] Work Phone: Op Noteon 09-19-2020 Op [...] Right empyema and hemothorax. Anesthesia: General endotracheal. Urban Sociologist: Kylah Liz M.D. Estimated Blood Loss: 50 [...] suctioned out. Two tubes were placed, one 24-Nepalese Ladonna in the basilar surface and a straight 24-Nepalese chest tube was placed in the posterior part of the right hemithorax. Incisions closed. The patient tolerated the procedure well. He was extubated and taken to PACU for recovery. [employer] Job ID: [id number] Kassandra Davidson MD DOD:09/19/2020 09:44 A GABRIELA/mariel DOT:09/19/2020 10:52 A Job Number: [id number] Document Number: [id number] cc: Kassandra Davidson MD [facility] [address] [place] [address] [address] [facility] [address] Alessio Robertson MD [address] [facility] [address] [facility] [address] Normal [facility] Protime AND APTTon aPTT Coag (Bld) [Time] 44.7 s High 20.0-30.5 [facility] Comment on above: Result Comment: NOTE : The therapeutic time for Heparin anticoagulation, based on Xa activity inhibition, is an APTT of 46-80 seconds. Performed By: #### B NP3, BMP3, MG3 #### [facility] [address] [place] [address] INR 1.1 Normal 0.9-1.1 [facility] Comment on above: Result Comment: Abhishke mmended Anticoagulant Therapy: SEE BELOW ----- INR [...] By: #### B SOURAV3, ESTEFANY3, MG3 #### [facility] [employer] [address] [place] [phone] PT Coag (PPP) [Time] 11.8 s Normal 9.0-12.0 [facility] [employer] Comment on above: Result Comment: . Performed By: #### B SOURAV3, ESTEFANY3, MG3 #### [facility] [employer] [address] [place] [phone] Protime/INR & PTTon 09-20-19 aPTT Coag (Bld) [Time] 44.7 s High 20.0 - 30.5 s [employer] Work Phone: Comment on above: NOTE: The therapeuti c time for Heparin anticoagulation, based on Xa activity inhibition, is an APTT of 46-80 seconds. INR Coag (PPP) [Relative time] 1.1 {INR} [employer] Work Phone: Comment on above: Recommended Anticoag [...] Interpretation and review of laboratory results Abnormal [employer] Work Phone: PT Coag (PPP) [Time] 11.8 s 9.0 - 1 2.0 s [employer] Work Phone: Comment on above: . Test Performed by [facility], [address] [place] [address] [facility] [place] Work Phone: Surgical Pathologyon [phone] Surgical Pathology [phone] [facility] PATHOLOGY AND LABORATORY MEDICINE [address] [place] [address] [id number] FINAL SURGICAL PATHOLOGY REPORT NAME: AMAURY BLANK : 1940 80 [address] [place] NO.: [id number] LOCATION: [address] [place] [address] 25 PROCEDURE 09/19/2020 DATE: SURGEON: KASSANDRA DAVIDSON MD RECEIVED 09/19/2020 DATE: ATTENDING: KASSANDRA DAVIDSON MD REPORT DATE: 09/20/2020 COPIES TO: DIAGNOSIS: RIGHT PLEURAL BIOPSY - MARKED ORGANIZING ACUTE AND CHRONIC INFLAMMATION Comment: Biopsy consists of pleural tissue with extensive acute and chronic inflammation, with granulation tissue. 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 No evidence of granulomas or malignancy. PA/PA Signature> AMILCAR HYDE M.D. CLINICAL INFORMATION: Not [...] characteristics determined by the clinical laboratories of [facility]. They have not been cleared by the [...] negativity on decalcified specimens. Professional Performing Location: [address] [address]. DEPARTMENT OF PATHOLOGY AND LABORATORY MEDICINE [place], [place] [address] [email or web address] Normal [facility] TS GELon 09-19-2020 TS GEL ABO Group: O Rh, Gel: POS Antibody Screen Gel: NEG Normal [facility] Comment on above: Performed By: #### C /TBC #### [address] [address] TYPE AND SCREENon 09-19-2020 Sodium [Moles/Vol] O [facility] Work Phone: Sodium [Moles/Vol] Negative [facility] Work Phone: Sodium [Moles/Vol] Positive [facility] Work Phone: Test Performed by [facility], [address] [place] [address] [facility] Work Phone: XR CHEST PORTABLEon 09-20-19 [facility], [facility] Incoming Radiology Results From [facility] - 09/19/2020 10:32 AM EDT Patient Name: AMAURY BLANK Diagnostic Radiology ACCESSION EXAM DATE/TIME PROCEDURE ORDERING PROVIDER [id number] 09/19/2020 10:32 EDT CR Chest Portable [place] LIZ, EKRON CPT code 95448 Reason For Exam (CR Chest Portable) Chest [...] RISA Transcribed Date and Time: 09/19/2020 10:23 [facility] Work Phone: Patient Name: AMAURY DAVIS Diagnostic Radiology ACCESSION EXAM DATE/TIME PROCEDURE ORDERING PROVIDER [id number] 09/19/2020 10:32 EDT CR Chest Portable [place] LIZ, EKRON CPT code 47947 Reason For Exam (CR Chest Portable) Chest [...] RISA Transcribed Date and Time: 09/19/2020 10:23 [facility] Work Phone: [facility], [facility] Incoming Radiology Results From [facility] - 09/19/2020 8:05 AM EDT Patient Name: AMAURY BLANK Diagnostic Radiology ACCESSION EXAM DATE/TIME PROCEDURE ORDERING PROVIDER [id number] 09/19/2020 06:56 EDT CR Chest Portable [place] LIZ, KYLAH CPT code 58880 Reason For Exam (CR Chest Portable) Right [...] Radiology ACCESSION EXAM DATE/TIME PROCEDURE ORDERING PROVIDER [id number] 09/19/2020 06:56 EDT CR Chest Portable [place] LIZ, EKRON CPT code 70245 Reason For Exam (CR Chest Portable) Right [...] RISA Transcribed Date and Time: 09/19/2020 7:57 [facility] Work Phone: CBCon 09-18-2020 Erythrocyte distribution width (RBC) [Ratio] 14.5 % 11.5 - 14.5 % [facility] Work Phone: [phone] Hematocrit (Bld) [Volume fraction] 30.0 % Low 40.0 - 52.0 % [facility] Work Phone: [phone] Hemoglobin (Bld) [Mass/Vol] 9.9 g/dL Low 13.0 - 18.0 g/dL [facility] Work Phone: Interpretation and review of laboratory results Abnormal [facility] Work Phone: [phone] MCH (RBC) [Entitic mass] 33.0 pg 26.0 - 34.0 pg [facility] Work Phone: [phone] MCHC (RBC) [Mass/Vol] 33.0 % 32.0 - 36.0 % [facility] Work Phone: [phone] MCV (RBC) [Entitic vol] 99.9 fL High 80.0 - 98.0 fL [facility] Work Phone: [phone] Platelet mean volume (Bld) [Entitic vol] 8.8 fL 7.4 - 10.4 fL [facility] Work Phone: [phone] Platelets (Bld) [#/Vol] 155 10*3/uL 140 - 440 10*3/uL [facility] Work Phone: [phone] RBC (Bld) [#/Vol] 3.00 10*6/uL Low 4.40 - 5.90 10*6/uL [facility] Work Phone: WBC (Bld) [#/Vol] 10.6 10*3/uL 3.6 - 10.7 10*3/uL [facility] [place] Work Phone: Test Performed by [facility], [address] [place] [address] [facility] [place] Work Phone: CR Chest Portableon 09-19-19 CR Chest Portable Patient [facility]: [id number] Diagnostic Radiology ACCESSION EXAM DATE/TIME PROCEDURE ORDERING PROVIDER [id number] 09/18/2020 06:45 EDT CR Chest Portable [place] LIZ SARAH CPT code 04285 Reason For Exam (CR Chest Portable) Right [...] Transcribed Date and Time: 09/18/2020 7:55 Normal [facility] Hemogramon 09-18-2020 Erythrocyte distribution width (RBC) [Ratio] 14.5 % Normal 11.5-14.5 [facility] Comment on above: Performed By: #### B NP3, BMP3, MG3 #### [place] [address], [place] Hematocrit (Bld) [Volume fraction] 30.0 % Low 40.0-52.0 [facility] Comment on above: Performed By: #### B NP3, BMP3, MG3 #### [place] [address], [place] Hemoglobin (Bld) [Mass/Vol] 9.9 g/dL Low 13.0-18.0 [facility] Comment on above: Performed By: #### B NP3, BMP3, MG3 #### [address] MCH (RBC) [Entitic mass] 33.0 pg Normal 26.0-34.0 [facility] Comment on above: Performed By: #### B NP3, BMP3, MG3 #### [place] [address], [place] MCHC 33.0 % Normal 32.0-36.0 [facility] Comment on above: Performed By: #### B NP3, BMP3, MG3 #### [address] MCV (RBC) [Entitic vol] 99.9 fL High 80.0-98.0 S [facility] Comment on above: Performed By: #### B NP3, BMP3, MG3 #### [address] Platelet mean volume (Bld) [Entitic vol] 8.8 fL Normal 7.4-10.4 [facility] Comment on above: Performed By: #### B NP3, BMP3, MG3 #### [address] Platelets (Bld) [#/Vol] 155 10*3/uL Normal 140-440 [facility] Comment on above: Performed By: #### B NP3, BMP3, MG3 #### [address] RBC (Bld) [#/Vol] 3.00 10*6/uL Low 4.40-5.90 [facility] Comment on above: Performed By: #### B NP3, BMP3, MG3 #### [facility] [address], [place] WBC (Bld) [#/Vol] 10.6 10*3/uL Normal 3.6-10.7 [facility] Comment on above: Performed By: #### B NP3, BMP3, MG3 #### [place] [address], [place] Renal Functionon 09-18-2020 Anion gap [Moles/Vol] 5 mmol/L Normal 3-13 [facility] Comment on above: Performed By: #### B NP3, BMP3, MG3 #### [place] [address], [place] Calcium [Mass/Vol] 8.5 mg/dL Normal 8.4-10.4 [facility] Comment on above: Performed By: #### B NP3, BMP3, MG3 #### [place] [address], [place] CO2 [Moles/Vol] 20 mmol/L Low 22-30 [facility] Comment on above: Performed By: #### B NP3, BMP3, MG3 #### [place] [address], [place] Creatinine [Mass/Vol] 1.80 mg/dL High 0.52-1.25 [facility] Comment on above: Performed By: #### B NP3, BMP3, MG3 #### [facility] [address], [place] GFR/1.73 sq M.predicted among blacks MDRD (S/P/Bld) [Vol rate/Area] 40.5 mL/min/{1.73_m2} Abnormal >60 [facility] Comment on above: Performed By: #### B NP3, BMP3, MG3 #### [place] [address] [place] [address] GFR/1.73 sq M.predicted among non-blacks MDRD (S/P/Bld) [Vol rate/Area] 35.0 mL/min/{1.73_m2} Abnormal >60 [facility] Comment on above: Result Comment: KDIG O [...] By: #### B NP3, BMP3, MG3 #### [facility] [address] [place] [address] Glucose [Mass/Vol] 112 mg/dL High 70-100 [facility] Comment on above: Performed By: #### B NP3, BMP3, MG3 #### [facility] [address] [place] [address] Phosphate [Mass/Vol] 3.6 mg/dL Normal 2.5-4.5 [facility] Comment on above: Performed By: #### B NP3, BMP3, MG3 #### [facility] [address] [place] [address] Urea nitrogen [Mass/Vol] 50 mg/dL High 7-20 [facility] Comment on above: Performed By: #### B NP3, BMP3, MG3 #### [facility] [address] [place] [address] Albumin [Mass/Vol] 2.1 g/dL Low 3.5-5.0 [facility] Comment on above: Performed By: #### B NP3, BMP3, MG3 #### [facility] [address] [place] [address] Chloride [Moles/Vol] 106 mmol/L Normal 98-107 [facility] Comment on above: Performed By: #### B NP3, BMP3, MG3 #### [facility] [address] [place] [address] Potassium [Moles/Vol] 4.9 mmol/L Normal 3.5-5.1 [facility] Comment on above: Performed By: #### B NP3, BMP3, MG3 #### [facility] [address] [place] [address] Sodium [Moles/Vol] 131 mmol/L Low 135-145 [facility] Comment on above: Performed By: #### B NP3, BMP3, MG3 #### [facility] [address] [place] [address] Renal Function Panelon 09-18 Albumin [Mass/Vol] 2.1 g/dL Low 3.5 - 5.0 g/dL [facility] Work Phone: Anion gap [Moles/Vol] 5 mmol/L 3 - 13 mmol/L [facility] Work Phone: Calcium [Mass/Vol] 8.5 mg/dL 8.4 - 10. 4 mg/dL [facility] Work Phone: Chloride [Moles/Vol] 106 mmol/L 98 - 10 7 mmol/L [facility] Work Phone: CO2 [Moles/Vol] 20 mmol/L Low 22 - 30 mmol/L [facility] Work Phone: Creatinine [Mass/Vol] 1.8 mg/dL High 0.52 - 1.25 mg/dL [facility] Work Phone: EGFR IF NonAfrican Chadian 35.0 mL/min Abnormal >60 [facility] Work Phone: [...] mg/dL [facility] Work Phone: Test Performed by [facility], [address] [place] [address] [facility] Work Phone: XR CHEST PORTABLEon 09-19-19 [facility], [facility] Incoming Radiology Results From [facility] - 09/18/2020 7:58 AM EDT Patient Name: AMAURY BLANK Diagnostic Radiology ACCESSION EXAM DATE/TIME PROCEDURE ORDERING PROVIDER [id number] 09/18/2020 06:45 EDT CR Chest Portable [place] LIZ, EKRON CPT code 08614 Reason For Exam (CR Chest Portable) Right [...] [facility] Work Phone: Patient Name: AMAURY DAVIS [facility]#: [id number] Diagnostic Radiology ACCESSION EXAM DATE/TIME PROCEDURE ORDERING PROVIDER [id number] 09/18/2020 06:45 EDT CR Chest Portable [place] LIZ, EKRON CPT code 86351 Reason For Exam (CR Chest Portable) Right [...] NEIL Transcribed Date and Time: 09/18/2020 7:55 [employer] Work Phone: CBC Auto Differentialon 03- Absolute Baso # 0.1 10*3/uL 0.0 - 0.2 10*3/uL [facility] Work Phone: Absolute Neut # 6.6 10*3/uL 1.8 - 7.0 10*3/uL [facility] Work Phone: Basophils/100 WBC (Bld) 0.7 % 0.0 - 2.0 % [facility] Work Phone: Eosinophils (Bld) [#/Vol] 0.1 10*3/uL 0.0 - 0.5 10*3/uL [facility] Work Phone: Eosinophils/100 WBC (Bld) 1.5 % 1.0 - 6.0 % [employer] Work Phone: Erythrocyte distribution width (RBC) [Ratio] 14.6 % High 11.5 - 14.5 % [employer] Work Phone: Granulocytes/100 WBC (Bld) 80.8 % High 40.0 - 80.0 % [employer] Work Phone: Hematocrit (Bld) [Volume fraction] 33.2 % Low 40.0 - 52.0 % [employer] Work Phone: Hemoglobin (Bld) [Mass/Vol] 10.8 g/dL Low 13.0 - 18.0 g/dL [facility] Work Phone: [phone] Interpretation and review of laboratory results Abnormal [facility] Work Phone: [phone] Lymphocytes (Bld) [#/Vol] 0.9 10*3/uL Low 1.0 - 4.3 10*3/uL [facility] Work Phone: [phone] Lymphocytes/100 WBC (Bld) 10.5 % Low 20.0 - 40.0 % [facility] Work Phone: [phone] MCH (RBC) [Entitic mass] 33.0 pg 26.0 - 34.0 pg [facility] Work Phone: [phone] MCHC (RBC) [Mass/Vol] 32.6 % 32.0 - 36.0 % [facility] Work Phone: [phone] MCV (RBC) [Entitic vol] 101.2 fL High 80.0 - 98.0 fL [facility] Work Phone: [phone] Monocytes (Bld) [#/Vol] 0.5 10*3/uL 0.0 - 0.8 10*3/uL [facility] Work Phone: [phone] Monocytes/100 WBC (Bld) 6.5 % 2.0 - 10.0 % [facility] Work Phone: [phone] Platelet mean volume (Bld) [Entitic vol] 8.7 fL 7.4 - 10.4 fL [facility] Work Phone: [phone] Platelets (Bld) [#/Vol] 161 10*3/uL 140 - 440 10*3/uL [facility] Work Phone: [phone] RBC (Bld) [#/Vol] 3.28 10*6/uL Low 4.40 - 5.90 10*6/uL [facility] Work Phone: [phone] WBC (Bld) [#/Vol] 8.0 10*3/uL 3.6 - 10.7 10*3/uL [facility] Work Phone: [phone] Test Performed by [facility], [address] [place] [address] [facility] Work Phone: [phone] CR Chest Portableon 09-18-19 CR Chest Portable Patient Name: AMAURY DAVIS Diagnostic Radiology ACCESSION EXAM DATE/TIME PROCEDURE ORDERING PROVIDER [id number] 09/17/2020 06:25 EDT CR Chest Portable [place] LIZ SARAH CPT code 84701 Reason For Exam (CR Chest Portable) Right [...] Transcribed Date and Time: 09/17/2020 7:58 Normal [facility] CULTURE BLOODon 09-17-2020 Microscopic examination of blood, culture CULTURE BLOOD --> Status: F No growth at 5 days. Normal [facility] Comment on above: Performed By: #### C /TBC #### [address] [address] CULTURE BLOOD (Two)on 2020 Microscopic examination of blood, culture CULTURE BLOOD (Two) --> Status: F No growth at 5 days. Normal [facility] Comment on above: Performed By: #### C /TBC #### [facility] [address] [place] [address] Hemogram w/ Autodiffon 09-17 Abs Baso Cnt 0.1 10*3/uL Normal 0.0-0.2 [facility] Comment on above: Performed By: #### B NP3, BMP3, MG3 #### [facility] [address] [place] [address] Abs Neutrophile Cnt 6.6 10*3/uL Normal 1.8-7.0 [facility] Comment on above: Performed By: #### B NP3, BMP3, MG3 #### [facility] [address] [place] [address] Basophils/100 WBC (Bld) 0.7 % Normal 0.0-2.0 S [facility] Comment on above: Performed By: #### B NP3, BMP3, MG3 #### [address] [place] [address] Eosinophils (Bld) [#/Vol] 0.1 10*3/uL Normal 0.0-0.5 [facility] Comment on above: Performed By: #### B NP3, BMP3, MG3 #### [address] [place] [address] Eosinophils/100 WBC (Bld) 1.5 % Normal 1.0-6.0 [facility] Comment on above: Performed By: #### B NP3, BMP3, MG3 #### [address] [place] [address] Granulocytes/100 WBC (Bld) 80.8 % High 40.0-80.0 [facility] Comment on above: Performed By: #### B NP3, BMP3, MG3 #### [address] [place] [address] Lymphocytes (Bld) [#/Vol] 0.9 10*3/uL Low 1.0-4.3 [facility] Comment on above: Performed By: #### B NP3, BMP3, MG3 #### [address] [address] Lymphocytes/100 WBC (Bld) 10.5 % Low 20.0-40.0 [facility] Comment on above: Performed By: #### B NP3, BMP3, MG3 #### [address] [place], [place] Monocytes (Bld) [#/Vol] 0.5 10*3/uL Normal 0.0-0.8 [facility] Comment on above: Performed By: #### B NP3, BMP3, MG3 #### [address] [place] Monocytes/100 WBC (Bld) 6.5 % Normal 2.0-10.0 S [facility] Comment on above: Performed By: #### B NP3, BMP3, MG3 #### [address] [place], [place] Erythrocyte distribution width (RBC) [Ratio] 14.6 % High 11.5-14.5 [facility] Comment on above: Performed By: #### B NP3, BMP3, MG3 #### [address] Hematocrit (Bld) [Volume fraction] 33.2 % Low 40.0-52.0 [facility] Comment on above: Performed By: #### B NP3, BMP3, MG3 #### [address] [place] Hemoglobin (Bld) [Mass/Vol] 10.8 g/dL Low 13.0-18.0 [facility] Comment on above: Performed By: #### B NP3, BMP3, MG3 #### [address] [place] MCH (RBC) [Entitic mass] 33.0 pg Normal 26.0-34.0 [facility] Comment on above: Performed By: #### B NP3, BMP3, MG3 #### [address] [place] MCHC 32.6 % Normal 32.0-36.0 [facility] Comment on above: Performed By: #### B NP3, BMP3, MG3 #### [address] [place] MCV (RBC) [Entitic vol] 101.2 fL High 80.0-98.0 S [facility] Comment on above: Performed By: #### B NP3, BMP3, MG3 #### [address] [address] Platelet mean volume (Bld) [Entitic vol] 8.7 fL Normal 7.4-10.4 [facility] Comment on above: Performed By: #### B NP3, BMP3, MG3 #### [address] [address] Platelets (Bld) [#/Vol] 161 10*3/uL Normal 140-440 [facility] Comment on above: Performed By: #### B NP3, BMP3, MG3 #### [address] RBC (Bld) [#/Vol] 3.28 10*6/uL Low 4.40-5.90 [facility] Comment on above: Performed By: #### B NP3, BMP3, MG3 #### [address] WBC (Bld) [#/Vol] 8.0 10*3/uL Normal 3.6-10.7 [facility] Comment on above: Performed By: #### B NP3, BMP3, MG3 #### [address] Otheron 09-17-2020 Blood Culture, Routine No growth at 5 days. [facility] Work Phone: Test Performed by [id number] [place] [address] Work Phone: XR CHEST PORTABLEon 09-18-19 Jax, [facility] Incoming Radiology Results From [facility] - 09/17/2020 8:00 AM EDT Patient Name: AMAURY BLANK Diagnostic Radiology ACCESSION EXAM DATE/TIME PROCEDURE ORDERING PROVIDER [id number] 09/17/2020 06:25 EDT CR Chest Portable [place] LIZ EKRON CPT code 82321 Reason For Exam (CR Chest Portable) Right [...] [facility] Work Phone: Patient Name: AMAURY DAVIS [facility]#: [id number] Diagnostic Radiology ACCESSION EXAM DATE/TIME PROCEDURE ORDERING PROVIDER [id number] 09/17/2020 06:25 EDT CR Chest Portable [place] LIZ SARAH CPT code 63296 Reason For Exam (CR Chest Portable) Right [...] RACHEL Transcribed Date and Time: 09/17/2020 7:58 [facility] Work Phone: Add On Lab Teston 09-16-2020 Sodium [Moles/Vol] Accepted [facility] Work Phone: Comment on above: Specimen available & acceptable for analysis. Test Performed by [facility], [address] [place] [address] [facility] Work Phone: Add on test from HISon 09-16 Add on test from HIS Accepted Normal [facility] Comment on above: Result Comment: Spec imen available & acceptable for analysis. Performed By: #### A DDON #### [address] [place] [address] Basic Metabolic Panelon 08-29 Anion gap [Moles/Vol] 5 mmol/L Normal 3-13 [facility] Comment on above: Performed By: #### B NP3, BMP3, MG3 #### [address] [place] [address] Calcium [Mass/Vol] 8.4 mg/dL Normal 8.4-10.4 [facility] Comment on above: Performed By: #### B NP3, BMP3, MG3 #### [address] [place] [address] CO2 [Moles/Vol] 18 mmol/L Low 22-30 [facility] Comment on above: Performed By: #### B NP3, BMP3, MG3 #### [address] [place] [address] Glucose [Mass/Vol] 132 mg/dL High 70-100 [facility] Comment on above: Performed By: #### B NP3, BMP3, MG3 #### [address] [place] [address] Urea nitrogen [Mass/Vol] 63 mg/dL High 7-20 [facility] Comment on above: Performed By: #### B NP3, BMP3, MG3 #### [address] [place] [address] Creatinine [Mass/Vol] 1.99 mg/dL High 0.52-1.25 [facility] Comment on above: Performed By: #### B NP3, BMP3, MG3 #### [facility] [address] [place] [address] GFR/1.73 sq M.predicted among blacks MDRD (S/P/Bld) [Vol rate/Area] 35.9 mL/min/{1.73_m2} Abnormal >60 [facility] Comment on above: Performed By: #### B NP3, BMP3, MG3 #### [facility] [address] [place] [address] GFR/1.73 sq M.predicted among non-blacks MDRD (S/P/Bld) [Vol rate/Area] 31.0 mL/min/{1.73_m2} Abnormal >60 [facility] Comment on above: Result Comment: KDIG O [...] By: #### B NP3, BMP3, MG3 #### [facility] [address] [place] [address] Chloride [Moles/Vol] 106 mmol/L Normal 98-107 [facility] Comment on above: Performed By: #### B NP3, BMP3, MG3 #### [facility] [address] [place] [address] Potassium [Moles/Vol] 4.1 mmol/L Normal 3.5-5.1 [facility] Comment on above: Performed By: #### B NP3, BMP3, MG3 #### [facility] [address] [place] [address] Sodium [Moles/Vol] 130 mmol/L Low 135-145 [facility] Comment on above: Performed By: #### B NP3, BMP3, MG3 #### [facility] [address] [place] [address] Anion gap [Moles/Vol] 5 mmol/L 3 - 13 mmol/L [facility] Work Phone: Calcium [Mass/Vol] 8.4 mg/dL 8.4 - 10. 4 mg/dL [facility] Work Phone: Chloride [Moles/Vol] 106 mmol/L 98 - 10 7 mmol/L [facility] Work Phone: CO2 [Moles/Vol] 18 mmol/L Low 22 - 30 mmol/L [facility] Work Phone: Creatinine [Mass/Vol] 1.99 mg/dL High 0.52 - 1.25 mg/dL [facility] Work Phone: EGFR IF NonAfrican Chadian 31.0 mL/min Abnormal >60 [facility] Work Phone: Comment on above: KDIGO [...] (S/P/Bld) [Vol rate/Area] 35.9 mL/min/{1.73_m2} Abnormal >60 [facility] Work Phone: Glucose [Mass/Vol] 132 mg/dL High 70 - 100 mg/dL [facility] Work Phone: Potassium [Moles/Vol] 4.1 mmol/L 3.5 - 5.1 mmol/L [facility] Work Phone: Sodium [Moles/Vol] 130 mmol/L Low 135 - 145 mmol/L [facility] Work Phone: Urea nitrogen [Mass/Vol] 63 mg/dL High 7 - 20 mg/dL [facility] Work Phone: CR Chest Portableon 09-17-19 CR Chest Portable Patient Name: AMAURY DAVIS Diagnostic Radiology ACCESSION EXAM DATE/TIME PROCEDURE ORDERING PROVIDER [id number] 09/16/2020 06:32 EDT CR Chest Portable [place] LIZ SARAH CPT code 96619 Reason For Exam (CR Chest Portable) Right [...] Transcribed Date and Time: 09/16/2020 8:19 Normal [facility] CULT/STAIN - AEROBIC AND RACHEL EROBICon 09-16-2020 [...] 0.5 S Penicillin-G(OSCAR) <= 0.06 S Normal [employer] Comment on above: Performed By: #### C /TBC #### [employer] [address] [place] [address] CYTOLOGY, NON-GYNon 09-17-19 Cytology report Cyto stain.thin prep Doc (Cvx/Vag) SEE BELOW [employer] Work Phone: [phone] [facility] [phone] PATHOLOGY [facility] LABORATORY MEDICINE [address] [facility] [place], [place] [id number] FINAL MEDICAL CYTOLOGY REPORT NAME: AMAURY BLANK : 1940 80 Y Deep [place] NO.: [id number] LOCATION: [facility] 6 H TOWER INPT PROCEDURE 09/13/2020 [...] characteristics determined by the clinical laboratories of [facility]. They have not been cleared by the [...] negativity on decalcified specimens. Case reviewed at [address] [place] [address]. DEPARTMENT OF PATHOLOGY AND LABORATORY MEDICINE [place], [place] [address] [facility] Work Phone: Culture, Anaerobic and Aerob icon 09-16-2020 Aerobic Culture Many [facility] Work Phone: Aerobic Culture Streptococcus intermedius Abnormal [facility] Work Phone: Anaerobic Culture Negative Abnormal [facility] Work Phone: Anaerobic Culture Moderate [facility] Work Phone: INR Coag (Bld) [Relative time] Many polymorphonuclear cells/lpf. Many gram positive cocci in pairs and chains. Moderate gram positive bacilli. Moderate gram negative bacilli. [facility] Work Phone: Interpretation and review of laboratory results Abnormal [facility] Work Phone: Test Performed by [facility], [address] [place] [address] [facility] Work Phone: EKG 12 Leadon 09-16-2020 Jax, [facility] Incoming Cardiology Results From [facility] - 09/16/2020 10:57 AM EDT [facility] Test Date: 2020-09-16 Pat Name: Amaury Blank Department: 1AH6 Room: 24 Gender: M 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: [facility] : 1940 Requested By: MARIA ELENA KAMINSKI Order Number: [id number] Reading MD: Adamaris Johns Measurements Intervals [place] Rate: 77 P: PA: QRS: -25 QRSD: 122 T: 82 QT: 414 QTc: 469 Interpretive Statements Atrial flutter with predominant 3:1 AV block Nonspecific intraventricular conduction delay Anteroseptal infarct, age indeterminate Electronically Signed On 09-16-2020 10:56:23 EDT by Adamaris Johns [facility] Work Phone: [facility] Test Date: 2020-09-16 Pat Name: Amaury Blank Department: 1AH6 Room: 6124 Gender: M 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: ANNALISE : 1940 Requested By: MARIA ELENA KAMINSKI Order Number: [id number] Reading MD: Adamaris Johns Measurements Intervals [place] Rate: 77 P: PA: QRS: -25 QRSD: 122 T: 82 QT: 414 QTc: 469 Interpretive Statements Atrial flutter with predominant 3:1 AV block Nonspecific intraventricular conduction delay Anteroseptal infarct, age indeterminate Electronically Signed On 09-16-2020 10:56:23 EDT by Adamaris Johns [facility] Work Phone: HISTOPLASMA ANTIGEN, URINEon 09-16-2020 HISTOPLASMA AG URINE DETECTION Not Detected ng/mL [facility] Work Phone: Interpretation Not Detected Not Detected NA [facility] Work Phone: Comment on above: INTERPRETIVE DATA: [...] developed and its performance characteristics determined by [facility]. It has not been cleared or approved by the [place] Food and Drug Administration. This test was performed in a CLIA certified laboratory and is intended for clinical purposes. Performed By: [facility] [address] [place] [address] Monitor Car Operator: Alice Fraga MD Histoplasma Ag, Urineon 08-29 Histoplasma Ag,Urine Not detected Normal [facility] Comment on above: Performed By: #### B NP3, BMP3, MG3 #### [address] [address] Interpretation Not detected Normal Not Detected [facility] Comment on above: Result Comment: INTE RPRETIVE [...] developed and its performance characteristics determined by [facility]. It has not been cleared or approved by the [place] Food and Drug Administration. This test was performed in a CLIA certified laboratory and is intended for clinical purposes. Performed By: [facility] [address] [place] [address] Monitor Car Operator: Alice Fraga MD Performed By: #### B NP3, BMP3, MG3 #### [address] [address] Magnesiumon 09-16-2020 Magnesium [Mass/Vol] 1.7 mg/dL Normal 1.6-2.3 [facility] Comment on above: Performed By: #### B NP3, BMP3, MG3 #### [address] [address] Magnesium [Mass/Vol] 1.7 mg/dL 1.6 - 2 .3 mg/dL [facility] Work Phone: Test Performed by [facility], [address] [place] [address] [facility] Work Phone: Otheron 09-16-2020 Interpretation and review of laboratory results Abnormal [facility] Work Phone: Test Performed by [facility], [address] [place] [address] [facility] Work Phone: Protein, Totalon 09-16-2020 Protein [Mass/Vol] 4.5 g/dL Low 6.3 - 8.2 g/dL [facility] Work Phone: Total Proteinon 09-16-2020 Protein [Mass/Vol] 4.5 g/dL Low 6.3-8.2 [facility] Comment on above: Performed By: #### B NP3, BMP3, MG3 #### [facility] [employer] [address] [address] XR CHEST PORTABLEon 09-17-19 Patient Name: AMAURY DAVIS Diagnostic Radiology ACCESSION EXAM DATE/TIME PROCEDURE ORDERING PROVIDER [id number] 09/16/2020 06:32 EDT CR Chest Portable [place] LIZ SARAH CPT code 44263 Reason For Exam (CR Chest Portable) Right [...] Time: 09/16/2020 8:19 [facility] Work Phone: [facility], [facility] From [facility] - 09/16/2020 8:21 AM EDT [facility]: [id number] Diagnostic Radiology ACCESSION EXAM DATE/TIME PROCEDURE ORDERING PROVIDER [id number] 09/16/2020 06:32 EDT CR Chest Portable [place] LIZ SARAH CPT code 41201 Reason For Exam (CR Chest Portable) Right [...] RACHEL Transcribed Date and Time: 09/16/2020 8:19 [facility] Work Phone: BODY FLUID CELL COUNT WITH D IFFERENTIALon 09-15-2020 Nucl Cell, Fluid 90353 {cells}/uL [facility] Work Phone: RED BLOOD CELLS, BODY FLUID 656660 {RBC}/uL [facility] Work Phone: Sodium [Moles/Vol] chest tube [facility] Work Phone: Test Performed by [facility] [employer] [facility], [address] [place] [phone] [facility] Work Phone: Basic Metabolic Panelon 08-28 Anion gap [Moles/Vol] 9 mmol/L Normal 3-13 [facility] Comment on above: Performed By: #### B NP3, BMP3, MG3 #### [address] Calcium [Mass/Vol] 8.3 mg/dL Low 8.4-10.4 [facility] Comment on above: Performed By: #### B NP3, BMP3, MG3 #### [facility] [address] [place], [place] CO2 [Moles/Vol] 19 mmol/L Low 22-30 [facility] Comment on above: Performed By: #### B NP3, BMP3, MG3 #### [facility] [address] [place], [place] Creatinine [Mass/Vol] 2.27 mg/dL High 0.52-1.25 [facility] Comment on above: Performed By: #### B NP3, BMP3, MG3 #### [facility] [address] [place], [place] GFR/1.73 sq M.predicted among blacks MDRD (S/P/Bld) [Vol rate/Area] 30.6 mL/min/{1.73_m2} Abnormal >60 [facility] Comment on above: Performed By: #### B NP3, BMP3, MG3 #### [facility] [address] [place] [place], [place] GFR/1.73 sq M.predicted among non-blacks MDRD (S/P/Bld) [Vol rate/Area] 26.4 mL/min/{1.73_m2} Abnormal >60 [facility] Comment on above: Result Comment: KDIG O [...] By: #### B NP3, BMP3, MG3 #### [facility] [address] [place] [address] Glucose [Mass/Vol] 105 mg/dL High 70-100 [facility] Comment on above: Performed By: #### B NP3, BMP3, MG3 #### [facility] [address] [place] [address] Urea nitrogen [Mass/Vol] 68 mg/dL High 7-20 [facility] Comment on above: Performed By: #### B NP3, BMP3, MG3 #### [address] [place] [address] Chloride [Moles/Vol] 106 mmol/L Normal 98-107 [facility] Comment on above: Performed By: #### B NP3, BMP3, MG3 #### [address] [place] [address] Potassium [Moles/Vol] 4.0 mmol/L Normal 3.5-5.1 [facility] Comment on above: Performed By: #### B NP3, BMP3, MG3 #### [address] [place] [address] Sodium [Moles/Vol] 134 mmol/L Low 135-145 [facility] Comment on above: Performed By: #### B NP3, BMP3, MG3 #### [address] [place] [address] Anion gap [Moles/Vol] 9 mmol/L 3 - 13 mmol/L [facility] Work Phone: Calcium [Mass/Vol] 8.3 mg/dL Low 8.4 - 10. 4 mg/dL [facility] Work Phone: Chloride [Moles/Vol] 106 mmol/L 98 - 10 7 mmol/L [facility] Work Phone: CO2 [Moles/Vol] 19 mmol/L Low 22 - 30 mmol/L [facility] Work Phone: Creatinine [Mass/Vol] 2.27 mg/dL High 0.52 - 1.25 mg/dL [facility] Work Phone: EGFR IF NonAfrican [place] 26.4 mL/min Abnormal >60 [facility] Work Phone: [...] 105 mg/dL High 70 - 100 mg/dL [facility] Work Phone: Interpretation and review of laboratory results Abnormal [facility] Work Phone: Potassium [Moles/Vol] 4.0 mmol/L 3.5 - 5.1 mmol/L [facility] Work Phone: Sodium [Moles/Vol] 134 mmol/L Low 135 - 145 mmol/L [facility] Work Phone: Urea nitrogen [Mass/Vol] 68 mg/dL High 7 - 20 mg/dL [facility] Work Phone: Test Performed by [facility], [address] [place] [id number] [facility] Work Phone: CR Chest Portableon 09-16-19 21 CR Chest Portable Patient Name: AMAURY DAVIS Diagnostic Radiology ACCESSION EXAM DATE/TIME PROCEDURE ORDERING PROVIDER [id number] 09/15/2020 06:44 EDT CR Chest Portable [place] LIZ KYLAH CPT code 32279 Reason For Exam (CR Chest Portable) Right [...] Transcribed Date and Time: 09/15/2020 7:13 Normal [facility] Cell Count,Body Fluidon 08-28 Nucleated Cells 54058 {cells}/uL Normal [facility] Comment on above: Performed By: #### B NP3, BMP3, MG3 #### [facility] [address] [place] [address] RBC Count Body F[place] 573104 {RBC}/uL Normal [facility] Comment on above: Performed By: #### B NP3, BMP3, MG3 #### [facility] [address] [place] [address] Fluid Type chest tube Normal [facility] Comment on above: Performed By: #### B NP3, BMP3, MG3 #### [facility] [address] [place] [address] Differential, Body Fluidon 0 09-15-2020 Eosinophils/100 WBC (Bld) 1 % [facility] Work Phone: Lymphocytes/100 WBC (Bld) 1 % [facility] Work Phone: Macrophage count 1 % [facility] Work Phone: Monocytes/100 WBC (Bld) 1 % S [facility] Work Phone: Neutrophils/100 WBC (Bld) 96 % [facility] Work Phone: Sodium [Moles/Vol] 100 mmol/L [facility] Work Phone: Test Performed by [facility], [address] [place] [address] [facility] Work Phone: Differential,Body Fluidson 0 09-15-2020 Eosinophils/100 WBC (Bld) 1 % Normal [facility] Comment on above: Performed By: #### B NP3, BMP3, MG3 #### [address] [place] [address] Lymphocytes/100 WBC (Bld) 1 % Normal [facility] Comment on above: Performed By: #### B NP3, BMP3, MG3 #### [facility] [place] [address] Macrophages 1 % Normal [facility] Comment on above: Performed By: #### B NP3, BMP3, MG3 #### [address] [place] [address] Monocytes/100 WBC (Bld) 1 % Normal [facility] Comment on above: Performed By: #### B NP3, BMP3, MG3 #### [facility] [place] [address] Neutrophils/100 WBC (Bld) 96 % Normal [facility] Comment on above: Performed By: #### B NP3, BMP3, MG3 #### [facility] [place] [address] Cells Counted for Diff 100 Normal [facility] Comment on above: Performed By: #### B NP3, BMP3, MG3 #### [address] [place] [address] Glucose, Body Fluidon 2020 Glucose, Body Fluid < 20 Normal No Range [facility] Comment on above: Performed By: #### B NP3, BMP3, MG3 #### [facility] [employer] [facility] [place] Glucose, Body Fluid <20 No Range mg/dL [facility] Work Phone: Test Performed by [facility], [address] [place] [id number] [facility] Work Phone: Hemoglobin AND Hematocriton 09-15-2020 Hematocrit (Bld) [Volume fraction] 32.9 % Low 40.0-52.0 [facility] Comment on above: Performed By: #### B MP3, HEMDF #### [facility] [employer] [facility] [place] Hemoglobin (Bld) [Mass/Vol] 10.7 g/dL Low 13.0-18.0 [facility] Comment on above: Performed By: #### B MP3, HEMDF #### [facility] [employer] [facility] [place] Hemoglobin and Hematocrit, B loodon 09-15-2020 Hematocrit (Bld) [Volume fraction] 32.9 % Low 40.0 - 52.0 % [facility] Work Phone: Hemoglobin (Bld) [Mass/Vol] 10.7 g/dL Low 13.0 - 18.0 g/dL [facility] Work Phone: Interpretation and review of laboratory results Abnormal [facility] Work Phone: Test Performed by [facility], [place] [address] [facility] Work Phone: LDH, Body Fluidon 09-15-2020 LDH, Body Fluid 2229 U/L Normal No Range [facility] Comment on above: Performed By: #### B NP3, BMP3, MG3 #### [facility] [employer] [address] [place] [address] Fluid Type Acites Normal [facility] Comment on above: Performed By: #### B NP3, BMP3, MG3 #### [facility] [employer] [facility] [place] [address] Lactate Dehydrogenase, Body Fluidon 09-15-2020 LD, Fluid 2229 U/L No Range [facility] Work Phone: Sodium [Moles/Vol] Acites [facility] Work Phone: Test Performed by [facility], [address] [place], [place] [address], [place] [address] [facility] Work Phone: XR CHEST PORTABLEon 09-16-19 [facility], [facility] Results From [facility] - 09/15/2020 7:17 AM EDT Patient Name: AMAURY BLANK Diagnostic Radiology ACCESSION EXAM DATE/TIME PROCEDURE ORDERING PROVIDER [id number] 09/15/2020 06:44 EDT CR Chest Portable [place] LIZ, [place]LA[place] CPT code 80660 Reason For Exam (CR Chest Portable) Right [...] AHMAD Transcribed Date and Time: 09/15/2020 7:13 [facility] Work Phone: Patient Name: AMAURY HOLMAN Diagnostic Radiology ACCESSION EXAM DATE/TIME PROCEDURE ORDERING PROVIDER [id number] 09/15/2020 06:44 EDT CR Chest Portable [place] LIZ, [place]LAH CPT code 17083 Reason For Exam (CR Chest Portable) Right [...] AHMAD Transcribed Date and Time: 09/15/2020 7:13 [facility] Work Phone: Basic Metabolic Panelon 08-28 Calcium [Mass/Vol] 8.5 mg/dL Normal 8.4-10.4 [facility] Comment on above: Performed By: #### C /TBC #### [facility] [address] [place], [place] Anion gap [Moles/Vol] 8 mmol/L Normal -13 [facility] Comment on above: Performed By: #### C /TBC #### [facility] [address] [place] CO2 [Moles/Vol] 20 mmol/L Low 22-30 [facility] Comment on above: Performed By: #### C /TBC #### [facility] [address] [place] Creatinine [Mass/Vol] 2.24 mg/dL High 0.52-1.25 [facility] Comment on above: Performed By: #### C /TBC #### [facility] [address] [place], [place] GFR/1.73 sq M.predicted among blacks MDRD (S/P/Bld) [Vol rate/Area] 31.1 mL/min/{1.73_m2} Abnormal >60 [facility] Comment on above: Performed By: #### C /TBC #### [place] [place] [address] [place] [address] GFR/1.73 sq M.predicted among non-blacks MDRD (S/P/Bld) [Vol rate/Area] 26.9 mL/min/{1.73_m2} Abnormal >60 [facility] Comment on above: Result Comment: KDIG O [...] secretion. Performed By: #### C /TBC #### [place] [address] [place], [place] Glucose [Mass/Vol] 129 mg/dL High 70-100 [facility] Comment on above: Performed By: #### C /TBC #### [address] [place] [address] [place] [address] Urea nitrogen [Mass/Vol] 70 mg/dL High 7-20 [facility] Comment on above: Performed By: #### C /TBC #### [address] [address] [place] [address] Chloride [Moles/Vol] 110 mmol/L High 98-107 [facility] Comment on above: Performed By: #### C /TBC #### [address] [place] [address] [place] [address] Potassium [Moles/Vol] 3.7 mmol/L Normal 3.5-5.1 [facility] Comment on above: Performed By: #### C /TBC #### [facility] [address] [place] [address] Sodium [Moles/Vol] 138 mmol/L Normal 135-145 [facility] Comment on above: Performed By: #### C /TBC #### [facility] [address] [place] [address] Anion gap [Moles/Vol] 8 mmol/L 3 - 13 mmol/L [facility] Work Phone: Calcium [Mass/Vol] 8.5 mg/dL 8.4 - 10. 4 mg/dL [facility] Work Phone: Chloride [Moles/Vol] 110 mmol/L High 98 - 10 7 mmol/L [facility] Work Phone: CO2 [Moles/Vol] 20 mmol/L Low 22 - 30 mmol/L [facility] Work Phone: Creatinine [Mass/Vol] 2.24 mg/dL High 0.52 - 1.25 mg/dL [facility] Work Phone: EGFR IF NonAfrican Chadian 26.9 mL/min Abnormal >60 [facility] Work Phone: Comment on above: KDIGO [...] mg/dL [facility] Work Phone: Test Performed by [facility], [address] [place] [address] [facility] Work Phone: CR Chest Portableon 09-15-19 CR Chest Portable [facility]: [id number] Radiology ACCESSION EXAM DATE/TIME PROCEDURE ORDERING PROVIDER [id number] 09/14/2020 06:53 EDT CR Chest Portable [place] LIZ SARAH CPT code 14955 Reason For Exam (CR Chest Portable) Right [...] JOHN Transcribed Date and Time: 09/14/2020 7:08 [facility] XR CHEST PORTABLEon 09-15-19 Patient Name: AMAURY DAVIS [facility]#: [id number] Diagnostic Radiology ACCESSION EXAM DATE/TIME PROCEDURE ORDERING PROVIDER [id number] 09/14/2020 06:53 EDT CR Chest Portable [place] LIZ SARAH CPT code 09366 Reason For Exam (CR Chest Portable) Right [...] JOHN Transcribed Date and Time: 09/14/2020 7:08 [facility] Work Phone: Jax, [facility] Incoming Radiology Results From [facility] - 09/14/2020 7:13 AM EDT Patient Name: AMAURY BLANK [facility]#: [id number] Diagnostic Radiology ACCESSION EXAM DATE/TIME PROCEDURE ORDERING PROVIDER [id number] 09/14/2020 06:53 EDT CR Chest Portable [place] LIZ [place] CPT code 06174 Reason For Exam (CR Chest Portable) Right [...] JOHN Transcribed Date and Time: 09/14/2020 7:08 [facility] Work Phone: Basic Metabolic Panelon 08-28 Anion gap [Moles/Vol] 7 mmol/L Normal 3-13 [facility] Comment on above: Performed By: #### B NP3, BMP3, MG3 #### [facility] [employer] [address] [address] Calcium [Mass/Vol] 8.3 mg/dL Low 8.4-10.4 [facility] Comment on above: Performed By: #### B NP3, BMP3, MG3 #### [facility] [employer] [address] [place] [address] CO2 [Moles/Vol] 21 mmol/L Low 22-30 [facility] Comment on above: Performed By: #### B NP3, BMP3, MG3 #### [facility] [address] [place], [place] Glucose [Mass/Vol] 139 mg/dL High 70-100 [facility] Comment on above: Performed By: #### B NP3, BMP3, MG3 #### [facility] [address] [place] Urea nitrogen [Mass/Vol] 79 mg/dL High 7-20 [facility] Comment on above: Performed By: #### B NP3, BMP3, MG3 #### [place] [address] [place], [place] Creatinine [Mass/Vol] 2.35 mg/dL High 0.52-1.25 [facility] Comment on above: Performed By: #### B NP3, BMP3, MG3 #### [place] [address] [place] GFR/1.73 sq M.predicted among blacks MDRD (S/P/Bld) [Vol rate/Area] 29.4 mL/min/{1.73_m2} Abnormal >60 [facility] Comment on above: Performed By: #### B NP3, BMP3, MG3 #### [place] [address] [place] GFR/1.73 sq M.predicted among non-blacks MDRD (S/P/Bld) [Vol rate/Area] 25.3 mL/min/{1.73_m2} Abnormal >60 [facility] Comment on above: Result Comment: KDIG O [...] By: #### B NP3, BMP3, MG3 #### [facility] [address] [place] Potassium [Moles/Vol] 3.2 mmol/L Low 3.5-5.1 [facility] Comment on above: Performed By: #### B NP3, BMP3, MG3 #### [facility] [address] [place] Sodium [Moles/Vol] 139 mmol/L Normal 135-145 [facility] Comment on above: Performed By: #### B NP3, BMP3, MG3 #### [facility] [address] [place] Anion gap [Moles/Vol] 6 mmol/L Normal 3-13 [facility] Comment on above: Performed By: #### B NP3, BMP3, MG3 #### [facility] [address] [place] Calcium [Mass/Vol] 8.3 mg/dL Low 8.4-10.4 [facility] Comment on above: Performed By: #### B NP3, BMP3, MG3 #### [facility] [address] [place] Chloride [Moles/Vol] 110 mmol/L High 98-107 [facility] Comment on above: Performed By: #### B NP3, BMP3, MG3 #### [facility] [address] [place] CO2 [Moles/Vol] 21 mmol/L Low 22-30 [facility] Comment on above: Performed By: #### B NP3, BMP3, MG3 #### [facility] [address] [place] Glucose [Mass/Vol] 136 mg/dL High 70-100 [facility] Comment on above: Performed By: #### B NP3, BMP3, MG3 #### [facility] [address] [place] [address] Urea nitrogen [Mass/Vol] 76 mg/dL High 7-20 [facility] Comment on above: Performed By: #### B NP3, BMP3, MG3 #### [facility] [address] [place] [address] Creatinine [Mass/Vol] 2.32 mg/dL High 0.52-1.25 [facility] Comment on above: Performed By: #### B NP3, BMP3, MG3 #### [facility] [address] [place] [address] GFR/1.73 sq M.predicted among blacks MDRD (S/P/Bld) [Vol rate/Area] 29.8 mL/min/{1.73_m2} Abnormal >60 [facility] Comment on above: Performed By: #### B NP3, BMP3, MG3 #### [facility] [address] [place] [address] GFR/1.73 sq M.predicted among non-blacks MDRD (S/P/Bld) [Vol rate/Area] 25.7 mL/min/{1.73_m2} Abnormal >60 [facility] Comment on above: Result Comment: KDIG O [...] By: #### B NP3, BMP3, MG3 #### [facility] [address] [place] [address] Chloride [Moles/Vol] 108 mmol/L High 98-107 [facility] Comment on above: Performed By: #### B NP3, BMP3, MG3 #### [facility] [address] [place] [address] Potassium [Moles/Vol] 3.2 mmol/L Low 3.5-5.1 [facility] Comment on above: Performed By: #### B NP3, BMP3, MG3 #### [facility] [address] [place] [address] Sodium [Moles/Vol] 135 mmol/L Normal 135-145 [facility] Comment on above: Performed By: #### B NP3, BMP3, MG3 #### [facility] [address] [place] [address] Anion gap [Moles/Vol] 7 mmol/L 3 - 13 mmol/L [facility] Work Phone: Anion gap [Moles/Vol] 6 mmol/L 3 - 13 mmol/L [facility] Work Phone: Chloride [Moles/Vol] 110 mmol/L High 98 - 10 7 mmol/L [facility] Work Phone: Chloride [Moles/Vol] 108 mmol/L High 98 - 10 7 mmol/L [facility] Work Phone: Creatinine [Mass/Vol] 2.35 mg/dL High 0.52 - 1.25 mg/dL [facility] Work Phone: Creatinine [Mass/Vol] 2.32 mg/dL High 0.52 - 1.25 mg/dL [facility] Work Phone: EGFR IF NonAfrican Chadian 25.7 mL/min Abnormal >60 [facility] Work Phone: Comment on above: KDIGO [...] renal tubular creatinine secretion. EGFR IF NonAfrican Chadian 25.3 mL/min Abnormal >60 [facility] Work Phone: Comment on above: KDIGO guidelines [...] (S/P/Bld) [Vol rate/Area] 29.8 mL/min/{1.73_m2} Abnormal >60 [facility] Work Phone: GFR/1.73 sq M predicted among blacks MDRD (S/P/Bld) [Vol rate/Area] 29.4 mL/min/{1.73_m2} Abnormal >60 [facility] Work Phone: Glucose [Mass/Vol] 139 mg/dL High 70 - 100 mg/dL [facility] Work Phone: Glucose [Mass/Vol] 136 mg/dL High 70 - 100 mg/dL [facility] Work Phone: Sodium [Moles/Vol] 139 mmol/L 135 - 145 mmol/L [facility] Work Phone: [phone] Sodium [Moles/Vol] 135 mmol/L 135 - 145 mmol/L [facility] Work Phone: [phone] Urea nitrogen [Mass/Vol] 76 mg/dL High 7 - 20 mg/dL [facility] Work Phone: [phone] Urea nitrogen [Mass/Vol] 79 mg/dL High 7 - 20 mg/dL [employer] Work Phone: [phone] C-Reactive Proteinon 021 CRP [Mass/Vol] 148.3 mg/L High 0.0-6.0 [facility] [employer] Comment on above: Result Comment: . Performed By: #### B NP3, BMP3, MG3 #### [facility] [address] [place] [address] CRP [Mass/Vol] 148.3 mg/L High 0.0 - 6.0 mg/L [facility] Work Phone: [phone] Comment on above: . Interpretation and review of laboratory results Abnormal [facility] Work Phone: [phone] Test Performed by [facility], [address] [place] [address] [facility] Work Phone: CBC Auto Differentialon 08-28 Absolute Baso # 0.0 10*3/uL 0.0 - 0.2 10*3/uL [employer] Work Phone: [phone] Absolute Neut # 4.9 10*3/uL 1.8 - 7.0 10*3/uL [facility] Work Phone: [phone] Basophils/100 WBC (Bld) 0.1 % 0.0 - 2.0 % [facility] Work Phone: [phone] Eosinophils (Bld) [#/Vol] 0.0 10*3/uL 0.0 - 0.5 10*3/uL [employer] Work Phone: Eosinophils/100 WBC (Bld) 0.1 % Low 1.0 - 6.0 % [employer] Work Phone: [phone] Erythrocyte distribution width (RBC) [Ratio] 14.4 % 11.5 - 14.5 % [employer] Work Phone: [phone] Granulocytes/100 WBC (Bld) 79.8 % 40.0 - 80.0 % [employer] Work Phone: [phone] Hematocrit (Bld) [Volume fraction] 30.0 % Low 40.0 - 52.0 % [employer] Work Phone: [phone] Hemoglobin (Bld) [Mass/Vol] 9.9 g/dL Low 13.0 - 18.0 g/dL [facility] Work Phone: [phone] Interpretation and review of laboratory results Abnormal [employer] Work Phone: [phone] Lymphocytes (Bld) [#/Vol] 0.6 10*3/uL Low 1.0 - 4.3 10*3/uL [employer] Work Phone: [phone] Lymphocytes/100 WBC (Bld) 9.4 % Low 20.0 - 40.0 % depict Phone: [phone] MCH (RBC) [Entitic mass] 33.4 pg 26.0 - 34.0 pg [employer] Work Phone: [phone] MCHC (RBC) [Mass/Vol] 33.0 % 32.0 - 36.0 % [employer] Work Phone: [phone] MCV (RBC) [Entitic vol] 101.1 fL High 80.0 - 98.0 fL [employer] Work Phone: [phone] Monocytes (Bld) [#/Vol] 0.6 10*3/uL 0.0 - 0.8 10*3/uL [employer] Work Phone: [phone] Monocytes/100 WBC (Bld) 10.6 % High 2.0 - 10.0 % [employer] Work Phone: [phone] Platelet mean volume (Bld) [Entitic vol] 9.2 fL 7.4 - 10.4 fL [employer] Work Phone: [phone] Platelets (Bld) [#/Vol] 131 10*3/uL Low 140 - 440 10*3/uL [employer] Work Phone: [phone] RBC (Bld) [#/Vol] 2.97 10*6/uL Low 4.40 - 5.90 10*6/uL [facility] Work Phone: WBC (Bld) [#/Vol] 6.1 10*3/uL 3.6 - 10.7 10*3/uL [facility] Work Phone: Test Performed by [facility], [address] [place] [id number] [place] [address] Work Phone: CR Chest Portableon 09-14-19 21 CR Chest Portable Patient Name: AMAURY DAVIS Diagnostic Radiology ACCESSION EXAM DATE/TIME PROCEDURE ORDERING PROVIDER [id number] 09/13/2020 06:54 EDT CR Chest Portable [place] LIZ SARAH CPT code 63359 Reason For Exam (CR Chest Portable) Right [...] Transcribed Date and Time: 09/13/2020 7:24 Normal [facility] CT CHEST WO CONTRASTon 09-13 Jax, [facility] Incoming Radiology Results From [facility] - 09/13/2020 2:53 PM EDT Patient Name: AMAURY BLANK Computed Tomography ACCESSION EXAM DATE/TIME PROCEDURE ORDERING PROVIDER [id number] 09/13/2020 13:[address] Thorax w/o Contrast [place] LIZ SARAH CPT code 12291 Reason For Exam (CT Thorax w/o Contrast) [...] [facility] Work Phone: Patient Name: [id number] Computed Tomography ACCESSION EXAM DATE/TIME PROCEDURE ORDERING PROVIDER [id number] 09/13/2020 13:[address] Thorax w/o Contrast [place] LIZ SARAH CPT code 12665 Reason For Exam (CT Thorax w/o Contrast) [...] Chest w/o Contrast Patient Name: [facility]AE[facility] [id number] Computed Tomography ACCESSION EXAM DATE/TIME PROCEDURE ORDERING PROVIDER [id number] 09/13/2020 13:[address] Thorax w/o Contrast [place] LIZ SARAH CPT code 31395 Reason For Exam (CT Thorax w/o Contrast) [...] Transcribed Date and Time: 09/13/2020 2:46 Normal [facility] Folateon 09-13-2020 Folate 15.1 ng/mL Normal 2.8-20.0 [facility] Comment on above: Performed By: #### B MP3, HEMDF #### [facility] [employer] [address] [place] [address] Folate 15.1 ng/mL 2.8 - 20.0 ng/mL [facility] Work Phone: Hemoglobin A1Con 09-13-2020 Glucose [Mass/Vol] 114 mg/dL Normal [facility] Comment on above: Performed By: #### B NP3, BMP3, MG3 #### [address] [address] HbA1c (Bld) [Mass fraction] 5.6 % Normal [facility] Comment on above: Result Comment: Norm al less than 5.7% Prediabetes 5.7% to 6.4% Diabetes 6.5% or higher --HgbA1C levels may not be accurate in patients who have renal disease, received recent blood transfusions, are anemic, or who have dyshemoglobinemia. Performed By: #### B NP3, BMP3, MG3 #### [address] [address] eAG 114 mg/dL [facility] Work Phone: HbA1c (Bld) [Mass fraction] 5.6 % [facility] Work Phone: Comment on above: Normal less than 5.7 % Prediabetes 5.7% to 6.4% Diabetes 6.5% or higher --HgbA1C levels may not be accurate in patients who have renal disease, received recent blood transfusions, are anemic, or who have dyshemoglobinemia. Test Performed by [facility], [address] [place] [address] [facility] Work Phone: Hemogram w/ Autodiffon 09-13 Abs Baso Cnt 0.0 10*3/uL Normal 0.0-0.2 [facility] Comment on above: Performed By: #### B NP3, BMP3, MG3 #### [address] [address] [place], [place] Abs Neutrophile Cnt 4.9 10*3/uL Normal 1.8-7.0 [facility] Comment on above: Performed By: #### B NP3, BMP3, MG3 #### [address] [address] Basophils/100 WBC (Bld) 0.1 % Normal 0.0-2.0 [facility] Comment on above: Performed By: #### B NP3, BMP3, MG3 #### [address] [address] [place] Eosinophils (Bld) [#/Vol] 0.0 10*3/uL Normal 0.0-0.5 [facility] Comment on above: Performed By: #### B NP3, BMP3, MG3 #### [address] [address] [place] Eosinophils/100 WBC (Bld) 0.1 % Low 1.0-6.0 [facility] Comment on above: Performed By: #### B NP3, BMP3, MG3 #### [place] [address] [place] Erythrocyte distribution width (RBC) [Ratio] 14.4 % Normal 11.5-14.5 [facility] Comment on above: Performed By: #### B NP3, BMP3, MG3 #### [place] [address] [place] Granulocytes/100 WBC (Bld) 79.8 % Normal 40.0-80.0 [facility] Comment on above: Performed By: #### B NP3, BMP3, MG3 #### [address] [address] [place] Hematocrit (Bld) [Volume fraction] 30.0 % Low 40.0-52.0 [facility] Comment on above: Performed By: #### B NP3, BMP3, MG3 #### [address] [place] Hemoglobin (Bld) [Mass/Vol] 9.9 g/dL Low 13.0-18.0 [facility] Comment on above: Performed By: #### B NP3, BMP3, MG3 #### [address] [place] Lymphocytes (Bld) [#/Vol] 0.6 10*3/uL Low 1.0-4.3 [facility] Comment on above: Performed By: #### B NP3, BMP3, MG3 #### [address] [address] [place] Lymphocytes/100 WBC (Bld) 9.4 % Low 20.0-40.0 [facility] Comment on above: Performed By: #### B NP3, BMP3, MG3 #### [place] [address] [place] MCH (RBC) [Entitic mass] 33.4 pg Normal 26.0-34.0 [facility] Comment on above: Performed By: #### B NP3, BMP3, MG3 #### [address] [place] [place] MCHC 33.0 % Normal 32.0-36.0 [facility] Comment on above: Performed By: #### B NP3, BMP3, MG3 #### [place] [address] [place] MCV (RBC) [Entitic vol] 101.1 fL High 80.0-98.0 [facility] Comment on above: Performed By: #### B NP3, BMP3, MG3 #### [place] [place] [place] Monocytes (Bld) [#/Vol] 0.6 10*3/uL Normal 0.0-0.8 [facility] Comment on above: Performed By: #### B NP3, BMP3, MG3 #### [address] [address] [place] Monocytes/100 WBC (Bld) 10.6 % High 2.0-10.0 [facility] Comment on above: Performed By: #### B NP3, BMP3, MG3 #### [place] [address] [place] Platelet mean volume (Bld) [Entitic vol] 9.2 fL Normal 7.4-10.4 [facility] Comment on above: Performed By: #### B NP3, BMP3, MG3 #### [address] [address] [place] Platelets (Bld) [#/Vol] 131 10*3/uL Low 140-440 [facility] Comment on above: Performed By: #### B NP3, BMP3, MG3 #### [facility] [address] [place], [place] RBC (Bld) [#/Vol] 2.97 10*6/uL Low 4.40-5.90 [facility] Comment on above: Performed By: #### B NP3, BMP3, MG3 #### [facility] [address] [place], [place] WBC (Bld) [#/Vol] 6.1 10*3/uL Normal 3.6-10.7 [facility] Comment on above: Performed By: #### B NP3, BMP3, MG3 #### [address] [address] Medical Cytologyon 1 Medical Cytology [facility] N [id number] DEPARTMENT OF PATHOLOGY AND [facility], [facility]. LABORATORY MEDICINE [address] [place] [id number] FINAL MEDICAL CYTOLOGY REPORT NAME: AMAURY BLANK : 1940 80 Y M [facility] NO.: [id number] LOCATION: [facility] 6 H TOW INPT PROCEDURE 09/13/2020 6124 01 DATE: PHYSICIAN: KYLAH LZI MD RECEIVED DATE: 09/14/2020 ATTENDING: GILBERT HENRY [...] characteristics determined by the clinical laboratories of [facility]. They have not been cleared by the [...] negativity on decalcified specimens. Case reviewed at [facility] [address] [place] [address]. DEPARTMENT OF PATHOLOGY AND LABORATORY MEDICINE [place], [place] [address] [email or web address] Normal [facility] Metabolic Panelon 09-13-2020 Calcium [Mass/Vol] 8.3 mg/dL Low 8.4 - 10. 4 mg/dL [facility] Work Phone: CO2 [Moles/Vol] 21 mmol/L Low 22 - 30 mmol/L [facility] Work Phone: Potassium [Moles/Vol] 3.2 mmol/L Low 3.5 - 5.1 mmol/L [facility] Work Phone: Otheron 09-13-2020 Test Performed by [facility] [employer] [facility], [address] [place] [id number] [facility] Work Phone: Interpretation and review of laboratory results Abnormal [facility] Work Phone: Test Performed by [facility], [address] [place] [id number] [place], [place] [address]A Work Phone: Procalcitoninon 09-13-2020 Procalcitonin 0.91 ng/mL Abnormal <0.10 [facility] Comment on above: Performed By: #### B MP3, HEMDF #### [facility] [address] [place] [phone] Interpretation and review of laboratory results Abnormal [facility] Work Phone: Procalcitonin 0.91 ng/mL Abnormal <0.10 [facility] Work Phone: Sodium [Moles/Vol] See Below [facility] Work Phone: Comment on above: PCT <0.50 = Low risk of severe sepsis and/or septic shock. PCT >2.00 = High risk of severe sepsis and/or septic shock. Test Performed by [employer], [address] [place] [id number] [facility] Work Phone: TSH without Reflexon 021 TSH Qn 1.679 u[IU]/mL 0.465 - 4.680 u[IU]/mL [facility] Work Phone: Test Performed by [employer] [facility], [address] [place], [place] [id number] [place], [place] [address] Work Phone: Thyroid Stim. Hormoneon 08-28 Thyroid Stim. Hormone 1.679 u[IU]/mL Normal 0.46 5-4.68 0 [facility] Comment on above: Performed By: #### B NP3, BMP3, MG3 #### [facility] [address] [place] [address] Vitamin B12on 09-13-2020 Cobalamin (Vitamin B12) [Mass/Vol] pg/mL High 239-931 [facility] Comment on above: Performed By: #### B MP3, HEMDF #### [facility] [address] [place] [address] Cobalamin (Vitamin B12) [Mass/Vol] pg/mL High 239 - 931 pg/mL [facility] Work Phone: Interpretation and review of laboratory results Abnormal [facility] Work Phone: XR CHEST PORTABLEon 09-14-19 Patient Name: AMAURY DAVIS Diagnostic Radiology ACCESSION EXAM DATE/TIME PROCEDURE ORDERING PROVIDER [id number] 09/13/2020 06:54 EDT CR Chest Portable Chadwick LIZ KYLAH CPT code 94812 Reason For Exam (CR Chest Portable) Right [...] AHMAD Transcribed Date and Time: 09/13/2020 7:24 [facility] Results From [facility] - 09/13/2020 7:28 AM EDT Patient Name: AMAURY BLANK Diagnostic Radiology ACCESSION EXAM DATE/TIME PROCEDURE ORDERING PROVIDER [id number] 09/13/2020 06:54 EDT CR Chest Portable Chadwick LIZ SARAH CPT code 93941 Reason For Exam (CR Chest Portable) Right [...] Radiology ACCESSION EXAM DATE/TIME PROCEDURE ORDERING PROVIDER [id number] 09/12/2020 14:33 EDT CR Chest 1 View Frontal Chadwick LIZ SARAH CPT code 72482 Reason For Exam (CR Chest 1 View [...] Transcribed Date and Time: 09/12/2020 1:39 Normal [facility] CR Chest Portableon 09-13-19 21 CR Chest Portable Patient Name: AMAURY DAVIS Diagnostic Radiology ACCESSION EXAM DATE/TIME PROCEDURE ORDERING PROVIDER [id number] 09/12/2020 07:47 EDT CR Chest Portable Chadwick LIZ EKRON CPT code 71844 Reason For Exam (CR Chest Portable) Dyspnea [...] Transcribed Date and Time: 09/12/2020 8:20 Normal [facility] CREATININE, RANDOM URINEon 0 09-12-2020 Creatinine (U) [Mass/Vol] 91.7 mg/dL No Range [facility] Work Phone: CT CHEST WO CONTRASTon 09-12 [facility], [facility] Incoming Radiology Results From [facility] - 09/12/2020 8:31 AM EDT Patient Name: AMAURY BLANK Computed Tomography ACCESSION EXAM DATE/TIME PROCEDURE ORDERING PROVIDER [id number] 09/12/2020 07:[address] Thorax w/o Contrast DO KAMINSKI INDERPARTAP SINGH CPT code 86476 Reason For Exam (CT Thorax w/o Contrast) [...] [facility] Work Phone: [facility]: [id number] Computed Tomography ACCESSION EXAM DATE/TIME PROCEDURE ORDERING PROVIDER [id number] 09/12/2020 07:[address] Thorax w/o Contrast DO KAMINSKI INDERPARTAP SINGH CPT code 42179 Reason For Exam (CT Thorax w/o Contrast) [...] Chest w/o Contrast Patient Name: [id number] Computed Tomography ACCESSION EXAM DATE/TIME PROCEDURE ORDERING PROVIDER [id number] 09/12/2020 07:[address] Thorax w/o Contrast DO KAMINSKI INDERPARTAP SINGH CPT code 51730 Reason For Exam (CT Thorax w/o Contrast) [...] Transcribed Date and Time: 09/12/2020 8:27 Normal [facility] CT GUIDED PLEURAL DRAINAGE W CATH PERCon 09-12-2020 Patient Name: AMAURY DAVIS Computed Tomography ACCESSION EXAM DATE/TIME PROCEDURE ORDERING PROVIDER [id number] 09/12/2020 10:[address] Insert Cath Pleura w/ Chadwick LIZ SARAH Image CPT code 89240 Reason For Exam (CT Insert Cath Pleura [...] usual fashion. Under CT guidance, a 12 Nepalese pigtail drainage catheter was advanced into position. [...] and Time: 09/12/2020 10:15 [facility] Work Phone: [facility] Incoming Radiology Results From [facility] - 09/12/2020 10:29 AM EDT Patient Name: AMAURY BLANK Computed Tomography ACCESSION EXAM DATE/TIME PROCEDURE ORDERING PROVIDER [id number] 09/12/2020 10:[address] Insert Cath Pleura jason/ Chadwick LIZ SARAH Image CPT code 92579 Reason For Exam (CT Insert Cath Pleura [...] usual fashion. Under CT guidance, a 12 Nepalese pigtail drainage catheter was advanced into position. [...] Phone: CT Insert Cath Pleura w/ [facility] 09-[facility]-2020 CT Insert Cath Pleura w/ Image Patient Name: AMAURY BLANK [facility]#: [id number] Computed Tomography ACCESSION EXAM DATE/TIME PROCEDURE ORDERING PROVIDER [id number] 09/12/2020 10:[address] Insert Cath Pleura w/ Chadwick LIZ, KYLAH Image CPT code 03039 Reason For Exam (CT Insert Cath Pleura [...] usual fashion. Under CT guidance, a 12 Nepalese pigtail drainage catheter was advanced into position. [...] Transcribed Date and Time: 09/12/2020 10:15 Normal [facility] Comp Metabolic Panelon 09-12 ALP [Catalytic activity/Vol] 147 U/L High 38-126 [facility] Comment on above: Performed By: #### B MP3, HEMDF #### [facility] [address] [place] [address] ALT [Catalytic activity/Vol] 24 U/L Normal 0-49 [facility] Comment on above: Result Comment: The ALT test is performed by an updated assay method. Please note that the reference intervals have been changed and are now sex specific. Performed By: #### B MP3, HEMDF #### [facility] [address] [place] [address] Calcium [Mass/Vol] 9.1 mg/dL Normal 8.4-10.4 [facility] Comment on above: Performed By: #### B MP3, HEMDF #### [facility] [address] [place] [address] Glucose [Mass/Vol] 117 mg/dL High 70-100 [facility] Comment on above: Performed By: #### B MP3, HEMDF #### [facility] [address], [place] Protein [Mass/Vol] 5.4 g/dL Low 6.3-8.2 [facility] Comment on above: Performed By: #### B MP3, HEMDF #### [facility] [address], [place] Urea nitrogen [Mass/Vol] 77 mg/dL High 7-20 [facility] Comment on above: Performed By: #### B MP3, HEMDF #### [facility] [address], [place] Anion gap [Moles/Vol] 9 mmol/L Normal 3-13 [facility] Comment on above: Performed By: #### B MP3, HEMDF #### [place] [address], [place] AST [Catalytic activity/Vol] 39 U/L Normal 15-46 [facility] Comment on above: Performed By: #### B MP3, HEMDF #### [place] [address], [place] Bilirubin [Mass/Vol] 1.2 mg/dL Normal 0.2-1.3 [facility] Comment on above: Performed By: #### B MP3, HEMDF #### [facility] [address], [place] CO2 [Moles/Vol] 20 mmol/L Low 22-30 [facility] Comment on above: Performed By: #### B MP3, HEMDF #### [facility] [address], [place] Creatinine [Mass/Vol] 2.18 mg/dL High 0.52-1.25 [facility] Comment on above: Performed By: #### B MP3, HEMDF #### [facility] [address], [place] GFR/1.73 sq M.predicted among blacks MDRD (S/P/Bld) [Vol rate/Area] 32.2 mL/min/{1.73_m2} Abnormal >60 [facility] Comment on above: Performed By: #### B MP3, HEMDF #### [facility] [address] [place] [address] GFR/1.73 sq M.predicted among non-blacks MDRD (S/P/Bld) [Vol rate/Area] 27.8 mL/min/{1.73_m2} Abnormal >60 [facility] Comment on above: Result Comment: KDIG O [...] Performed By: #### B MP3, HEMDF #### [facility] [address], [place] Chloride [Moles/Vol] 110 mmol/L High 98-107 [facility] Comment on above: Performed By: #### B MP3, HEMDF #### [facility] [address], [place] Potassium [Moles/Vol] 3.5 mmol/L Normal 3.5-5.1 [facility] Comment on above: Performed By: #### B MP3, HEMDF #### [facility] [address], [place] Sodium [Moles/Vol] 140 mmol/L Normal 135-145 [facility] Comment on above: Performed By: #### B MP3, HEMDF #### [facility] [address], [place] Albumin [Mass/Vol] 2.8 g/dL Low 3.5-5.0 [facility] Comment on above: Performed By: #### B MP3, HEMDF #### [facility] [address], [place] Complete Urinalysison 2020 Appearance (U) Clear Normal Clear [facility] Comment on above: Result Comment: . Performed By: #### B MP3, HEMDF #### [facility] [address], [place] Bacteria LM.HPF (Urine sed) [#/Area] Negative Normal Negative [facility] Comment on above: Result Comment: . Performed By: #### B MP3, HEMDF #### [facility] [address], [place] Bilirubin,Urine Negative Normal Negative [facility] Comment on above: Result Comment: . Performed By: #### B MP3, HEMDF #### [place] [address], [place] Cast, Hyaline Negative Normal Negative [facility] Comment on above: Result Comment: . Performed By: #### B MP3, HEMDF #### [facility] [address], [place] Color (U) Yellow Normal Lt. Yellow [facility] Comment on above: Result Comment: . Performed By: #### B MP3, HEMDF #### [facility] [address], [place] Glucose Ql (U) Normal Normal Normal (<70) [facility] Comment on above: Result Comment: . Performed By: #### B MP3, HEMDF #### [facility] [address], [place] Ketone,Urine Negative Normal Negative [facility] Comment on above: Result Comment: . Performed By: #### B MP3, HEMDF #### [facility] [address], [place] Leukocytes,Urine Negative Normal Negative [facility] Comment on above: Result Comment: . Performed By: #### B MP3, HEMDF #### [facility] [address], [place] Nitrites,Urine Negative Normal Negative [facility] Comment on above: Result Comment: . Performed By: #### B MP3, HEMDF #### [facility] [address], [place] Occult Blood,Urine Negative Normal Negative [facility] Comment on above: Result Comment: . Performed By: #### B MP3, HEMDF #### [facility] [address], [place] pH,Urine 5.5 Normal 5.0-8.0 [facility] Comment on above: Result Comment: . Performed By: #### B MP3, HEMDF #### [facility] [address], [place] Protein (U) [Mass/Vol] 10 mg/dL Abnormal Negative [facility] Comment on above: Result Comment: . Performed By: #### B MP3, HEMDF #### [place] [address], [place] RBC, Urine 0 - 2 Normal 0-2 [facility] Comment on above: Result Comment: . Performed By: #### B MP3, HEMDF #### [place] [address], [place] Specific [place],Urine 1.016 Normal 1.005 - 1.030 [facility] Comment on above: Result Comment: . Performed By: #### B MP3, HEMDF #### [place] [address], [place] Squamous Epithelial 0 - 2 Normal 3-5 [facility] Comment on above: Result Comment: . Performed By: #### B MP3, HEMDF #### [facility] [address], [place] Urobilinogen,Urine Normal Normal Normal (0-1) [facility] Comment on above: Result Comment: . Performed By: #### B MP3, HEMDF #### [facility] [address], [place] WBC, Urine 0 - 2 Normal 0-5 [facility] Comment on above: Result Comment: . Performed By: #### B MP3, HEMDF #### [facility] [address] [place] [address] Creatinine, Ur Randomon 08-28 Creatinine, Ur Random 91.7 mg/dL Normal No Range [facility] Comment on above: Performed By: #### B MP3, HEMDF #### [facility] [address] 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1940 Requested By: [facility] CenterBORA RAMIREZBuy.On.Social Order Number: [id number] Reading MD: Jason Booker Measurements Intervals [place] Rate: 97 P: PA: QRS: -53 QRSD: 132 T: -4 QT: [...] On 09-12-2020 10:07:34 EDT by Jason Booker [facility] Work Phone: [facility] Test Date: 2020-09-12 Pat Name: Amaury Blank Department: 1A6 Room: 6124 Gender: M 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1940 Requested By: [employer] Order Number: [id number] Reading MD: Jason Booker Measurements Intervals [place] Rate: 97 P: PA: QRS: -53 QRSD: 132 T: -4 QT: 402 QTc: 511 Interpretive Statements Atrial flutter with predominant 2:1 AV block 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 Gender: M 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: : 1940 Requested By: WILNERBolongaro TrevorBORA MINAVentrix Order Number: [id number] Reading MD: Jason Booker Measurements Intervals [place] Rate: 107 P: 109 PA: 149 QRS: -54 QRSD: 101 T: 108 QT: 445 QTc: 594 Interpretive Statements Sinus tachycardia Inferior st depression. consider ischemia. Repol abnrm suggests ischemia, diffuse leads Prolonged QT interval Electronically Signed On 09-12-2020 9:57:55 EDT by [employer] Work Phone: [facility], [facility] Incoming Cardiology Results From [facility] - 09/12/2020 9:58 AM EDT [employer] Test Date: 2020-09-11 Pat Name: Amaury Blank Department: 1A6 Room: [facility] Gender: M 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: : 1940 Requested By: WILNERBolongaro TrevorBORA KAMINSKI Order Number: [id number] Reading MD: Jason Booker Measurements Intervals [place] Rate: 107 P: 109 PA: 149 QRS: -54 QRSD: 101 T: 108 QT: 445 QTc: 594 Interpretive Statements Sinus tachycardia Inferior st depression. consider ischemia. Repol abnrm suggests ischemia, diffuse leads Prolonged QT interval Electronically Signed On 09-12-2020 9:57:55 EDT by [employer] Work Phone: Hemogram w/ [employer] 09-12 Abs Baso Cnt 0.0 10*3/uL Normal 0.0-0.2 [employer] Comment on above: Performed By: #### B MP3, HEMDF #### [employer] [address] [place] [phone] Abs Neutrophile Cnt 7.7 10*3/uL High 1.8-7.0 [facility] Comment on above: Performed By: #### B MP3, HEMDF #### [place] [address], [place] Basophils/100 WBC (Bld) 0.1 % Normal 0.0-2.0 [facility] Comment on above: Performed By: #### B MP3, HEMDF #### [place] [address], [place] Eosinophils (Bld) [#/Vol] 0.0 10*3/uL Normal 0.0-0.5 [facility] Comment on above: Performed By: #### B MP3, HEMDF #### [place] [address], [place] Eosinophils/100 WBC (Bld) 0.0 % Low 1.0-6.0 [facility] Comment on above: Performed By: #### B MP3, HEMDF #### [place] [address], [place] Erythrocyte distribution width (RBC) [Ratio] 14.3 % Normal 11.5-14.5 [facility] Comment on above: Performed By: #### B MP3, HEMDF #### [place] [address], [place] Granulocytes/100 WBC (Bld) 85.2 % High 40.0-80.0 [facility] Comment on above: Performed By: #### B MP3, HEMDF #### [place] [address], [place] Hematocrit (Bld) [Volume fraction] 33.2 % Low 40.0-52.0 [facility] Comment on above: Performed By: #### B MP3, HEMDF #### [place] [address] [place], [place] Hemoglobin (Bld) [Mass/Vol] 11.0 g/dL Low 13.0-18.0 [facility] Comment on above: Performed By: #### B MP3, HEMDF #### [place] [address] [place], [place] Lymphocytes (Bld) [#/Vol] 0.5 10*3/uL Low 1.0-4.3 [facility] Comment on above: Performed By: #### B MP3, HEMDF #### [facility] [address], [place] Lymphocytes/100 WBC (Bld) 5.0 % Low 20.0-40.0 [facility] Comment on above: Performed By: #### B MP3, HEMDF #### [facility] [address], [place] MCH (RBC) [Entitic mass] 33.4 pg Normal 26.0-34.0 [facility] Comment on above: Performed By: #### B MP3, HEMDF #### [place] [address], [place] MCHC 33.1 % Normal 32.0-36.0 [facility] Comment on above: Performed By: #### B MP3, HEMDF #### [place] [address], [place] MCV (RBC) [Entitic vol] 100.9 fL High 80.0-98.0 S [facility] Comment on above: Performed By: #### B MP3, HEMDF #### [place] [address], [place] Monocytes (Bld) [#/Vol] 0.9 10*3/uL High 0.0-0.8 [facility] Comment on above: Performed By: #### B MP3, HEMDF #### [place] [address], [place] Monocytes/100 WBC (Bld) 9.7 % Normal 2.0-10.0 [facility] Comment on above: Performed By: #### B MP3, HEMDF #### [place] [address], [place] Platelet mean volume (Bld) [Entitic vol] 8.7 fL Normal 7.4-10.4 [facility] Comment on above: Performed By: #### B MP3, HEMDF #### [facility] [address], [place] Platelets (Bld) [#/Vol] 137 10*3/uL Low 140-440 [facility] Comment on above: Performed By: #### B MP3, HEMDF #### [facility] [address], [place] RBC (Bld) [#/Vol] 3.29 10*6/uL Low 4.40-5.90 [facility] Comment on above: Performed By: #### B MP3, HEMDF #### [facility] [address], [place] WBC (Bld) [#/Vol] 9.1 10*3/uL Normal 3.6-10.7 [facility] Comment on above: Performed By: #### B MP3, HEMDF #### [facility] [address], [place] LEGIONELLA AG, URINEon 09-12 LEGIONELLA AG, URINE LEGIONELLA AG, URIN E --> Status: F Legionella antigen NOT DETECTED. Normal [facility] Comment on above: Performed By: #### C /TBC #### [facility] [address], [place] Lactic Acidon 09-12-2020 Lactate [Moles/Vol] 1.4 mmol/L Normal 0.7-2.0 [facility] Comment on above: Performed By: #### C /TBC #### [facility] [address], [place] Legionella Antigen, Urineon 09-12-2020 LEGIONELLA ANTIGEN Legionella antigen N OT DETECTED. [facility] Work Phone: MRSA by PCRon 09-12-2020 Staph Aureus Sc No S. aureus detecte d. Negative nasal MRSA PCR has a high negative predictive value for MRSA pneumonia. Consider stopping vancomycin if no other clinical indication. Contact Antimicrobial Stewardship for further recommendations. The analytical performance characteristics of this assay have been determined by [employer] in accordance with CLIA regulations. The modifications have not been cleared or approved by the U. S. Food and Drug Administration; however, the FDA has determined that such clearance or approval is not necessary. [facility] Work Phone: Test Performed by [facility], [address] [place] [id number] [place], [place] [address] Work Phone: Magnesiumon 09-12-2020 Magnesium [Mass/Vol] 2.1 mg/dL Normal 1.6-2.3 [facility] Comment on above: Performed By: #### B MP3, HEMDF #### [address] [address] Otheron 09-12-2020 Test Performed by [facility], [address] [place] [phone] [place], [place] [address] Work Phone: Test Performed by [facility], [address] [place] [phone] [place], [place] [address] Work Phone: Phosphoruson 09-12-2020 Phosphate [Mass/Vol] 4.5 mg/dL Normal 2.5-4.5 [facility] Comment on above: Performed By: #### B MP3, HEMDF #### [address] Procalcitoninon 09-12-2020 Interpretation See Below Normal [facility] Comment on above: Result Comment: PCT <0.50 = Low risk of severe sepsis and/or septic shock. PCT >2.00 = High risk of severe sepsis and/or septic shock. Performed By: #### B MP3, HEMDF #### [address] Procalcitonin 0.81 ng/mL Abnormal <0.10 [facility] Comment on above: Performed By: #### C /TBC #### [address] Interpretation and review of laboratory results Abnormal [facility] Work Phone: Procalcitonin 0.81 ng/mL Abnormal <0.10 [facility] Work Phone: Sodium [Moles/Vol] See Below [facility] Work Phone: Comment on above: PCT <0.50 = Low risk of severe sepsis and/or septic shock. PCT >2.00 = High risk of severe sepsis and/or septic shock. Test Performed by [facility] [employer] [facility], [address] [place] [id number] [facility] Work Phone: Protime AND APTTon 1 aPTT Coag (Bld) [Time] 34.6 s High 20.0-30.5 [facility] [employer] [facility] Comment on above: Result Comment: NOTE : The therapeutic time for Heparin anticoagulation, based on Xa activity inhibition, is an APTT of 46-80 seconds. Performed By: #### B MP3, HEMDF #### [facility] [employer] [address] [address] INR 1.3 High 0.9-1.1 [facility] [employer] Comment on above: Result Comment: Abhishek mmended [...] Performed By: #### B MP3, HEMDF #### [facility] [employer] [facility] [address] [place] [address] PT Coag (PPP) [Time] 13.8 s High 9.0-12.0 [facility] [employer] Comment on above: Result Comment: . Performed By: #### B MP3, HEMDF #### [employer] [address] [place] [address] Protime/INR & PTTon 09-13-19 21 aPTT Coag (Bld) [Time] 34.6 s High 20.0 - 30.5 s [facility] Work Phone: Comment on above: NOTE: The therapeuti c time for Heparin anticoagulation, based on Xa activity inhibition, is an APTT of 46-80 seconds. INR Coag (PPP) [Relative time] 1.3 {INR} High [facility] Work Phone: Comment on above: Recommended Anticoag [...] Interpretation and review of laboratory results Abnormal [employer] Work Phone: PT Coag (PPP) [Time] 13.8 s High 9.0 - 1 2.0 s [employer] Work Phone: Comment on above: . Test Performed by [facility] [employer] [facility], [address] [place] [id number] [employer] Work Phone: SODIUM, URINE, RANDOMon 08-28 Interpretation and review of laboratory results Abnormal [employer] Work Phone: Sodium (U) [Moles/Vol] 10 mmol/L Low 30 - 90 mmol/L [employer] Work Phone: STREP PNEUMO ANTIGEN, URINEo n 09-12-2020 STREP PNEUMO ANTIGEN, URINE STREP PNEUMO ANTIGEN, URINE --> Status: F Strep pneumo antigen NOT DETECTED. Normal [facility] [employer] Comment on above: Performed By: #### C /TBC #### [facility] [employer] [address] [place] [phone] STREP PNEUMONIAE ANTIGENon 0 09-12-2020 STREP PNEUMONIAE ANTIGEN, URINE Strep pneumo antigen NOT DETECTED. [employer] Work Phone: Sed Rateon 09-12-2020 Sed Rate 25 mm/h High 0-10 [facility] [employer] Comment on above: Performed By: #### B MP3, HEMDF #### [facility] [employer] [address] [place] [address] Sedimentation Rateon 021 Interpretation and review of laboratory results Abnormal [facility] Work Phone: Sed Rate 25 mm/h High 0 - 10 mm/h [facility] Work Phone: Test Performed by [facility], [address] [place] [address] [facility] Work Phone: Sodium, Ur Randomon 09-13-19 21 Sodium [Moles/Vol] 10 mmol/L Low 30-90 [facility] Comment on above: Performed By: #### B MP3, HEMDF #### [facility] [address] [place] [address] Staph Aureus Complete Nasalo n 09-12-2020 Staph Aureus Complete Nasal Staph Screen --> Status: F No S. aureus detected. Negative nasal MRSA PCR has a high negative predictive value for MRSA pneumonia. Consider stopping vancomycin if no other clinical indication. Contact Antimicrobial Stewardship for further recommendations. The analytical performance characteristics of this assay have been determined by [employer] in accordance with CLIA regulations. The modifications [...] of this assay have been determined by [employer] in accordance with CLIA regulations. The modifications have not been cleared or approved by the U. S. Food and Drug Administration; however, the FDA has determined that such clearance or approval is not necessary. Normal [facility] Comment on above: Performed By: #### S APCR #### [facility] [address] [place] [address] UREA NITROGEN, URINEon 09-12 Urea Nitrogen, Random Urine 1202 mg/dL No Range [facility] Work [facility]: US RETROPERITONEAL LIMITEDon 09-12-2020 Patient Name: AMAURY DAVIS Ultrasound ACCESSION EXAM DATE/TIME PROCEDURE ORDERING PROVIDER [id number] 09/12/2020 08:05 EDT US Retroperitoneal PHANGUREH, DO, Limited INDERPARTAP YARELI CPT code 14266 Reason For Exam (US Retroperitoneal Limited) MYRON [...] Phone: [facility], [facility] Incoming Rad[facility] Results From [facility] - 09/12/2020 8:32 AM EDT Patient Name: AMAURY BLANK Ultrasound ACCESSION EXAM DATE/TIME PROCEDURE ORDERING PROVIDER [id number] 09/12/2020 08:05 EDT US Retroperitoneal PHANGUREH, DO, Limited INDERPARTAP DOWNS CPT code 28649 Reason For Exam (US Retroperitoneal Limited) MYRON [...] JEFFREY Transcribed Date and Time: 09/12/2020 8:30 [facility] Work Phone: US Retroperitoneal Limitedon 09-12-2020 US Retroperitoneal Limited Patient Name: AMAURY BLANK Ultrasound ACCESSION EXAM DATE/TIME PROCEDURE ORDERING PROVIDER [id number] 09/12/2020 08:05 EDT US Retroperitoneal PHANGUREH, DO, Limited INDERPARTAP DOWNS CPT code 81878 Reason For Exam (US Retroperitoneal Limited) MYRON [...] Transcribed Date and Time: 09/12/2020 8:30 Normal [facility] Urea Nitrogen,Ur Randomon Urea nitrogen [Mass/Vol] 1202 mg/dL Normal No Range [facility] [employer] [facility] Comment on above: Performed By: #### B MP3, HEMDF #### [facility] [address] [place] [phone] Urinalysison 09-12-2020 Appearance (U) Clear Clear NA [facility] Work Phone: Comment on above: . Bacteria, UA Negative Negative /[HPF] [facility] Work Phone: Comment on above: . Bilirubin Urine Negative Negative mg/dL [facility] Work Phone: [phone] Comment on above: . Color (U) Yellow Lt. Yellow NA [facility] Work Phone: [phone] Comment on above: . Glucose, Ur Normal Normal (<70) mg/dL [facility] Work Phone: [phone] Comment on above: . Hyaline Casts, UA Negative Negative /[LPF] [facility] Work Phone: [phone] Comment on above: . Interpretation and review of laboratory results Abnormal [facility] Work Phone: [phone] Ketones Ql (U) Negative Negative mg/dL [facility] Work Phone: [phone] Comment on above: . LEUKOCYTES, UA Negative Negative Khurram/uL [facility] Work Phone: [phone] Comment on above: . Nitrite, Urine Negative Negative NA [facility] Work Phone: [phone] Comment on above: . Occult Blood,Urine Negative Negative mg/dL [facility] Work Phone: [phone] Comment on above: . pH (U) 5.5 [pH] [facility] Work Phone: [phone] Comment on above: . Protein (U) [Mass/Vol] 10 mg/dL Abnormal Negative [facility] Work Phone: [phone] Comment on above: . RBC (U) [#/Vol] 0-2 0 - 2 /[HPF] [facility] Work Phone: [phone] Comment on above: . Specific [place], Urine [address] [facility] Work Phone: [phone] Comment on above: . Squam Epithel, UA 0-2 3 - 5 /[HPF] [facility] Work Phone: [phone] Comment on above: . Urobilinogen, Urine Normal Normal (0-1) mg/dL [facility] Work Phone: Comment on above: . WBC, UA 0-2 0 - 5 /[HPF] [facility] Work Phone: Comment on above: . Test Performed by [facility] [employer] [facility], [address] [place] [id number] [facility] Work Phone: XR CHEST 1 VWon 09-12-2020 [facility], [facility] Incoming Radiology Results From [facility] - 09/12/2020 2:33 PM EDT Patient Name: AMAURY BLANK Diagnostic Radiology ACCESSION EXAM DATE/TIME PROCEDURE ORDERING PROVIDER [id number] 09/12/2020 14:33 EDT CR Chest 1 View Frontal Chadwick LIZ, KYLAH CPT code 53317 Reason For Exam (CR Chest 1 View [...] Radiology ACCESSION EXAM DATE/TIME PROCEDURE ORDERING PROVIDER [id number] 09/12/2020 14:33 EDT CR Chest 1 View Frontal Chadwick LIZ, KYLAH CPT code 22994 Reason For Exam (CR Chest 1 View [...] CHEST PORTABLEon 09-13-19 Patient Name: AMAURY DAVIS [facility]#: [id number] Diagnostic Radiology ACCESSION EXAM DATE/TIME PROCEDURE ORDERING PROVIDER [id number] 09/12/2020 07:47 EDT CR Chest Portable Chadwick LIZ SARAH CPT code 85097 Reason For Exam (CR Chest Portable) Dyspnea [...] JEFFREY Transcribed Date and Time: 09/12/2020 8:20 [facility] Work Phone: Jax, [facility] Incoming Radiology Results From [facility] - 09/12/2020 8:28 AM EDT Patient Name: AMAURY BLANK Diagnostic Radiology ACCESSION EXAM DATE/TIME PROCEDURE ORDERING PROVIDER [id number] 09/12/2020 07:47 EDT CR Chest Portable Chadwick LIZ SARAH CPT code 05982 Reason For Exam (CR Chest Portable) Dyspnea [...] JEFFREY Transcribed Date and Time: 09/12/2020 8:20 [facility] Work Phone: CBC Auto Differentialon 08-28 Absolute [...] 0.0 % Low 1.0 - 6.0 % [employer] Work Phone: [phone] Erythrocyte distribution width (RBC) [Ratio] 14.3 % 11.5 - 14.5 % [employer] Work Phone: [phone] Granulocytes/100 WBC (Bld) 85.2 % High 40.0 - 80.0 % [facility] Work Phone: [phone] Hematocrit (Bld) [Volume fraction] 33.2 % Low 40.0 - 52.0 % [facility] Work Phone: [phone] Hemoglobin (Bld) [Mass/Vol] 11.0 g/dL Low 13.0 - 18.0 g/dL [employer] Work Phone: [phone] Interpretation and review of laboratory results Abnormal [employer] Work Phone: [phone] Lymphocytes (Bld) [#/Vol] 0.5 10*3/uL Low 1.0 - 4.3 10*3/uL [employer] Work Phone: [phone] Lymphocytes/100 WBC (Bld) 5.0 % Low 20.0 - 40.0 % [employer] Work Phone: [phone] MCH (RBC) [Entitic mass] 33.4 pg 26.0 - 34.0 pg [employer] Work Phone: [phone] MCHC (RBC) [Mass/Vol] 33.1 % 32.0 - 36.0 % [employer] Work Phone: [phone] MCV (RBC) [Entitic vol] 100.9 fL High 80.0 - 98.0 fL [employer] Work Phone: [phone] Monocytes (Bld) [#/Vol] 0.9 10*3/uL High 0.0 - 0.8 10*3/uL [employer] Work Phone: [phone] Monocytes/100 WBC (Bld) 9.7 % 2.0 - 10.0 % [employer] Work Phone: [phone] Platelet mean volume (Bld) [Entitic vol] 8.7 fL 7.4 - 10.4 fL [employer] Work Phone: [phone] Platelets (Bld) [#/Vol] 137 10*3/uL Low 140 - 440 10*3/uL [facility] Work Phone: [phone] RBC (Bld) [#/Vol] 3.29 10*6/uL Low 4.40 - 5.90 10*6/uL [facility] Work Phone: [phone] WBC (Bld) [#/Vol] 9.1 10*3/uL 3.6 - 10.7 10*3/uL [facility] Work Phone: [phone] Test Performed by [facility], [address] [place] [id number] [facility] Work Phone: [phone] Comprehensive Metabolic Pane joanne 09-11-2020 Albumin [Mass/Vol] 2.8 g/dL Low 3.5 - 5.0 g/dL [employer] Work Phone: [phone] ALP [Catalytic activity/Vol] 147 U/L High 38 - 126 U/L [facility] Work Phone: [phone] ALT [Catalytic activity/Vol] 24 U/L 0 - 49 U/L [employer] Work Phone: [phone] Comment on above: The ALT test is perf ormed by an updated assay method. Please note that the reference intervals have been changed and are now sex specific. Anion gap [Moles/Vol] 9 mmol/L 3 - 13 mmol/L [facility] Work Phone: [phone] AST [Catalytic activity/Vol] 39 U/L 15 - 46 U/L [facility] Work Phone: [phone] Bilirubin Ql (U) 1.2 mg/dL 0.2 - 1.3 mg/dL [facility] Work Phone: [phone] Calcium [Mass/Vol] 9.1 mg/dL 8.4 - 10. 4 mg/dL [facility] Work Phone: [phone] Chloride [Moles/Vol] 110 mmol/L High 98 - 10 7 mmol/L [facility] Work Phone: [phone] CO2 [Moles/Vol] 20 mmol/L Low 22 - 30 mmol/L [facility] Work Phone: [phone] Creatinine [Mass/Vol] 2.18 mg/dL High 0.52 - 1.25 mg/dL [employer] Work Phone: EGFR IF NonAfrican Chadian 27.8 mL/min Abnormal >60 [employer] Work Phone: Comment on above: KDIGO guidelines [...] (S/P/Bld) [Vol rate/Area] 32.2 mL/min/{1.73_m2} Abnormal >60 [employer] Work Phone: Glucose [Mass/Vol] 117 mg/dL High 70 - 100 mg/dL [employer] Work Phone: Interpretation and review of laboratory results Abnormal [employer] Work Phone: Potassium [Moles/Vol] 3.5 mmol/L 3.5 - 5.1 mmol/L [facility] Work Phone: Protein [Mass/Vol] 5.4 g/dL Low 6.3 - 8.2 g/dL [facility] Work Phone: Sodium [Moles/Vol] 140 mmol/L 135 - 145 mmol/L [employer] Work Phone: Urea nitrogen [Mass/Vol] 77 mg/dL High 7 - 20 mg/dL [facility] Work Phone: Lactic Acid, Plasmaon 2020 Lactate [Moles/Vol] 1.4 mmol/L 0.7 - 2. 0 mmol/L [employer] Work Phone: Test Performed by [employer] [facility], [address] [place] [id number] [facility] Work Phone: Magnesiumon 09-11-2020 Magnesium [Mass/Vol] 2.1 mg/dL 1.6 - 2 .3 mg/dL [facility] Work Phone: Otheron 09-11-2020 Test Performed by [employer] [facility], [address] [place] [address] [facility] Work Phone: Phosphoruson 09-11-2020 Phosphate [Mass/Vol] 4.5 mg/dL 2.5 - 4 .5 mg/dL [facility] Work Phone: Procalcitoninon 09-11-2020 Interpretation See Below Normal [facility] [employer] Comment on above: Result Comment: PCT <0.50 = Low risk of severe sepsis and/or septic shock. PCT >2.00 = High risk of severe sepsis and/or septic shock. Performed By: #### C /TBC #### [facility] [address] [place] [phone] Vital Signs Date Time Vital Sign Value Performing Clinician Facility 03-03-2025 11:37-0400 Body height 180.[address] Rosa Maria Santacruz MD Work Phone: [facility] 03-03-2025 11:37-0400 Body mass index (BMI) [Ratio] 23.7 kg/m2 Dr. Rosa Maria Santacruz MD Work Phone: [facility] 03-03-2025 11:37-0400 Body temperature 98.2 [degF] Dr. Rosa Maria Santacruz MD Work Phone: [facility] 03-03-2025 11:37-0400 Body weight 77.[address] Rosa Maria Santacruz MD Work Phone: [facility] 03-03-2025 11:37-0400 Diastolic blood pressure 86 mm[Hg] Dr. Rosa Maria Santacruz MD Work Phone: [facility] 03-03-2025 11:37-0400 Heart rate 66 /min Dr. Rosa Maria Santacruz MD Work Phone: [phone])186-747346 [place] [address] 03-03-2025 11:37-0400 Respiratory rate 18 /min Dr. Rosa Maria Santacruz MD Work Phone: 0(591)293-550246 [place] [address] 03-03-2025 11:37-0400 SaO2% (BldA) [Mass fraction] 98 % Dr. Rosa Maria Santacruz MD Work Phone: 7(167)904-577446 [place] [address] 03-03-2025 11:37-0400 Systolic blood pressure 175 mm[Hg] Dr. Rosa Maria Santacruz MD Work Phone: 5(807)618-125846 [place] [address] 02-23-2025 07:06-0400 Body height 180.[address] Rosa Maria Santacruz MD Work Phone: 3(799)475-727846 [place] [address] 02-23-2025 07:06-0400 Body weight 77.[address] Rosa Maria Santacruz MD Work Phone: 8(843)013-011446 [place] [address] 02-22-2025 08:26-0400 Body mass index (BMI) [Ratio] 23.7 kg/m2 Dr. Rosa Maria Santacruz MD Work Phone: 0(511)545-484146 [place] [address] 12-27-2024 12:44-0400 Body temperature 97.8 [degF] Dr. Rosa Maria Santacruz MD Work Phone: 6(496)536-204946 [place] [address] 12-27-2024 12:44-0400 Diastolic blood pressure 60 mm[Hg] Dr. Rosa Maria Santacruz MD Work Phone: 9(755)170-384546 [place] [address] 12-27-2024 12:44-0400 Heart rate 68 /min Dr. Rosa Maria Santacruz MD Work Phone: 4(344)886-388946 [place] [address] 12-27-2024 12:44-0400 Respiratory rate 18 /min Dr. Rosa Maria Santacruz MD Work Phone: 3(254)173-974846 [place] [address] 12-27-2024 12:44-0400 SaO2% (BldA) [Mass fraction] 94 % Dr. Rosa Maria Santacruz MD Work Phone: 8(034)613-928646 [place] [address] 12-27-2024 12:44-0400 Systolic blood pressure 154 mm[Hg] Dr. Rosa Maria Santacruz MD Work Phone: [facility] 12-27-2024 09:29-0400 Body height 177.[address] Rosa Maria Santacruz MD Work Phone: 2(303)066-247313 [place] [address] 12-27-2024 09:29-0400 Body mass index (BMI) [Ratio] 24.3 kg/m2 Dr. Rosa Maria Santacruz MD Work Phone: 9(490)180-288313 [place] [address] 12-27-2024 09:29-0400 Body weight [address] Rosa Maria Santacruz MD Work Phone: 9(751)487-220546 [place] [address] 12-10-2024 13:18-0400 Body height 177.[address] Rosa Maria Santacruz MD Work Phone: 8(940)392-169946 [place] [address] 12-10-2024 13:18-0400 Body mass index (BMI) [Ratio] 23.3 kg/m2 Dr. Rosa Maria Santacruz MD Work Phone: 3(166)663-893213 [place] [address] 12-10-2024 13:18-0400 Body weight 73.[address] Rosa Maria Santacruz MD Work Phone: 7(788)027-217393 [address] 12-10-2024 13:18-0400 Diastolic blood pressure 75 mm[Hg] Dr. Rosa Maria Santacruz MD Work Phone: 0(090)926-785246 [place] [address] 12-10-2024 13:18-0400 Heart rate 84 /min Dr. Rosa Maria Santacruz MD Work Phone: 3(566)616-374113 [place] [address] 12-10-2024 13:18-0400 Respiratory rate 17 /min Dr. Rosa Maria Santacruz MD Work Phone: 3(561)168-018246 [place] [address] 12-10-2024 13:18-0400 SaO2% (BldA) [Mass fraction] 97 % Dr. Rosa Maria Santacruz MD Work Phone: 1(042)363-566213 [place] [address] 12-10-2024 13:18-0400 Systolic blood pressure 161 mm[Hg] Dr. Rosa Maria Santacruz MD Work Phone: [facility] 11-18-2024 14:14-0400 Diastolic blood pressure 60 mm[Hg] Dr. Rosa Maria Santacruz MD Work Phone: [facility] 11-18-2024 14:14-0400 Heart rate 70 /min Dr. Rosa Maria Santacruz MD Work Phone: [facility] 11-18-2024 14:14-0400 Systolic blood pressure 145 mm[Hg] Dr. Rosa Maria Santacruz MD Work Phone: [facility] 11-18-2024 10:04-0400 Body height 177.[address] Rosa Maria Santacruz MD Work Phone: [facility] 11-18-2024 10:04-0400 Body mass index (BMI) [Ratio] 24.3 kg/m2 Dr. Rosa Maria Santacruz MD Work Phone: [facility] 11-18-2024 10:04-0400 Body temperature 96.9 [degF] Dr. Rosa Maria Santacruz MD Work Phone: [facility] 11-18-2024 10:04-0400 Body weight 77.[address] Rosa Maria Santacruz MD Work Phone: [facility] 11-18-2024 10:04-0400 Respiratory rate 16 /min Dr. Rosa Maria Santacruz MD Work Phone: [facility] 11-18-2024 10:04-0400 SaO2% (BldA) [Mass fraction] 93 % Dr. Rosa Maria Santacruz MD Work Phone: [facility] 11-08-2024 22:16-0400 Body temperature 98 [degF] Dr. Rosa Maria Santacruz MD Work Phone: [facility] 11-08-2024 22:16-0400 Diastolic blood pressure 78 mm[Hg] Dr. Rosa Maria Santacruz MD Work Phone: [facility] 11-08-2024 22:16-0400 Heart rate 78 /min Dr. Rosa Maria Santacruz MD Work Phone: [facility] 11-08-2024 22:16-0400 Respiratory rate 18 /min Dr. Rosa Maria Santacruz MD Work Phone: [facility] 11-08-2024 22:16-0400 SaO2% (BldA) [Mass fraction] 99 % Dr. Rosa Maria Santacruz MD Work Phone: 9(944)471-624813 [place] [address] 11-08-2024 22:16-0400 Systolic blood pressure 122 mm[Hg] Dr. Rosa Maria Santacruz MD Work Phone: 8(677)130-581813 [place] [address] 11-08-2024 14:42-0400 Body height 177.[address] Rosa Maria Santacruz MD Work Phone: 9(613)856-889293 [address] 11-08-2024 14:42-0400 Body mass index (BMI) [Ratio] 24.2 kg/m2 Dr. Rosa Maria Santacruz MD Work Phone: 8(653)771-531113 [place] [address] 11-08-2024 14:42-0400 Body weight 76.[address] Rosa Maria Santacruz MD Work Phone: 0(605)970-437393 [address] 11-08-2024 13:35-0400 Body mass index (BMI) [Ratio] 24.1 kg/m2 Dr. Rosa Maria Santacruz MD Work Phone: 5(716)224-254113 [place] [address] 11-08-2024 13:35-0400 Body temperature 98 [degF] Dr. Rosa Maria Santacruz MD Work Phone: 8(361)581-802013 [place] [address] 11-08-2024 13:35-0400 Body weight 76.[address] Rosa Maria Santacruz MD Work Phone: [facility] 11-08-2024 13:35-0400 Diastolic blood pressure 70 mm[Hg] Dr. Rosa Maria Santacruz MD Work Phone: 3(093)411-044313 [place] [address] 11-08-2024 13:35-0400 Heart rate 67 /min Dr. Rosa Maria Santacruz MD Work Phone: 3(928)492-705713 [place] [address] 11-08-2024 13:35-0400 Respiratory rate 18 /min Dr. Rosa Maria Santacruz MD Work Phone: [facility] 11-08-2024 13:35-0400 SaO2% (BldA) [Mass fraction] 98 % Dr. Rosa Maria Santacruz MD Work Phone: [facility] 11-08-2024 13:35-0400 Systolic blood pressure 152 mm[Hg] Dr. Rosa Maria Santacruz MD Work Phone: [facility] 10-01-2024 12:59-0400 Body height 177.[address] Rosa Maria Santacruz MD Work Phone: [facility] 10-01-2024 12:59-0400 Body mass index (BMI) [Ratio] 24.3 kg/m2 Dr. Rosa Maria Santacruz MD Work Phone: [facility] 10-01-2024 12:59-0400 Body weight 77.[address] Rosa Maria Santacruz MD Work Phone: [facility] 10-01-2024 12:59-0400 Diastolic blood pressure 68 mm[Hg] Dr. Rosa Maria Santacruz MD Work Phone: [facility] 10-01-2024 12:59-0400 Heart rate 78 /min Dr. Rosa Maria Santacruz MD Work Phone: [facility] 10-01-2024 12:59-0400 Respiratory rate 18 /min Dr. Rosa Maria Santacruz MD Work Phone: [facility] 10-01-2024 12:59-0400 SaO2% (BldA) [Mass fraction] 96 % Dr. Rosa Maria Santacruz MD Work Phone: [facility] 10-01-2024 12:59-0400 Systolic blood pressure 114 mm[Hg] Dr. Rosa Maria Santacruz MD Work Phone: [facility] 11-10-2023 19:21-0400 Body temperature 98.1 [degF] Dr. Rosa Maria Santacruz Work Phone: [facility] 11-10-2023 19:21-0400 Diastolic blood pressure 71 mm[Hg] Dr. Rosa Maria Santacruz Work Phone: [facility] 11-10-2023 19:21-0400 Heart rate 80 /min Dr. Rosa Maria Santacruz Work Phone: [facility] 11-10-2023 19:21-0400 Respiratory rate 16 /min Dr. Rosa Maria Santacruz Work Phone: [facility] 11-10-2023 19:21-0400 SaO2% (BldA) [Mass fraction] 99 % Dr. Rosa Maria Santacruz Work Phone: [facility] 11-10-2023 19:21-0400 Systolic blood pressure 169 mm[Hg] Dr. Rosa Maria Santacruz Work Phone: [facility] 11-10-2023 17:48-0400 Body mass index (BMI) [Ratio] 24.3 kg/m2 Dr. Rosa Maria aSntacruz Work Phone: 8(993)969-445213 [place] [address] 11-10-2023 17:48-0400 Body weight 76.[address] Rosa Maria Santacruz Work Phone: 0(389)458-040113 [place] [address] 11-10-2023 16:31-0400 Body height 177.[address] Rosa Maria Santacruz Work Phone: [facility] 11-10-2023 14:17-0400 Body mass index (BMI) [Ratio] 24 kg/m2 Dr. Rosa Maria Santacruz Work Phone: [facility] 11-10-2023 14:17-0400 Body temperature 98.7 [degF] Dr. Rosa Maria Santacruz Work Phone: [facility] 11-10-2023 14:17-0400 Body weight 75.[address] Rosa Maria Santacruz Work Phone: [facility] 11-10-2023 14:17-0400 Diastolic blood pressure 70 mm[Hg] Dr. Rosa Maria Santacruz Work Phone: [facility] 11-10-2023 14:17-0400 Heart rate 56 /min Dr. Rosa Maria Santacruz Work Phone: [facility] 11-10-2023 14:17-0400 Respiratory rate 18 /min Dr. Rosa Maria Santacruz Work Phone: [facility] 11-10-2023 14:17-0400 SaO2% (BldA) [Mass fraction] 97 % Dr. Rosa Maria Santacruz Work Phone: [facility] 11-10-2023 14:17-0400 Systolic blood pressure 160 mm[Hg] Dr. Rosa Maria Santacruz Work Phone: [facility] 09-29-2023 11:31-0400 Body mass index (BMI) [Ratio] 24.7 kg/m2 Dr. Rosa Maria Santacruz Work Phone: 2(006)612-755813 [place] [address] 09-29-2023 11:31-0400 Body weight 78.[address] Rosa Maria Santacruz Work Phone: 9(756)339-377313 [place] [address] 09-29-2023 11:31-0400 Diastolic blood pressure 69 mm[Hg] Dr. Rosa Maria Santacruz Work Phone: [facility] 09-29-2023 11:31-0400 Heart rate 74 /min Dr. Rosa Maria Santacruz Work Phone: [facility] 09-29-2023 11:31-0400 Respiratory rate 18 /min Dr. Rosa Maria Santacruz Work Phone: [facility] 09-29-2023 11:31-0400 SaO2% (BldA) [Mass fraction] 98 % Dr. Rosa Maria Santacruz Work Phone: [facility] 09-29-2023 11:31-0400 Systolic blood pressure 158 mm[Hg] Dr. Rosa Maria Santacruz Work Phone: [facility] 09-10-2023 12:59-0400 Body temperature 96.7 [degF] Dr. Rosa Maria Santacruz Work Phone: 7(371)512-775413 [place] [address] 09-10-2023 12:59-0400 Diastolic blood pressure 65 mm[Hg] Dr. Rosa Maria Santacruz Work Phone: [facility] 09-10-2023 12:59-0400 Heart rate 79 /min Dr. Rosa Maria Santacruz Work Phone: [facility] 09-10-2023 12:59-0400 Respiratory rate 18 /min Dr. Rosa Maria Santacruz Work Phone: [facility] 09-10-2023 12:59-0400 Systolic blood pressure 153 mm[Hg] Dr. Rosa Maria Santacruz Work Phone: [facility] 09-03-2023 13:02-0500 Diastolic blood pressure 60 mm[Hg] Dr. Rosa Maria Santacruz Work Phone: [facility] 09-03-2023 13:02-0500 Heart rate 78 /min Dr. Rosa Maria Santacruz Work Phone: [facility] 09-03-2023 13:02-0500 Respiratory rate 18 /min Dr. Rosa Maria Santacruz Work Phone: [facility] 09-03-2023 13:02-0500 Systolic blood pressure 141 mm[Hg] Dr. Rosa Maria Santacruz Work Phone: [facility] 08-29-2023 00:25-0500 Body temperature 97.3 [degF] Dr. Rosa Maria Santacruz Work Phone: [facility] 08-29-2023 00:25-0500 Inhaled oxygen flow rate 2 L/min Dr. Rosa Maria Santacruz Work Phone: [facility] 08-29-2023 00:25-0500 SaO2% (BldA) [Mass fraction] 100 % Dr. Rosa Maria Santacruz Work Phone: [facility] 08-27-2023 13:01-0500 Body temperature 97.3 [degF] Dr. Paco Norman Work Phone: [facility] 08-27-2023 13:01-0500 Diastolic blood pressure 61 mm[Hg] Dr. Paco Norman Work Phone: [facility] 08-27-2023 13:01-0500 Heart rate 75 /min Dr. Paco Norman Work Phone: [facility] 08-27-2023 13:01-0500 Respiratory rate 18 /min Dr. Paco Norman Work Phone: [facility] 08-27-2023 13:01-0500 Systolic blood pressure 142 mm[Hg] Dr. Paco Norman Work Phone: [facility] 08-20-2023 13:14-0500 Body temperature 97.3 [degF] Dr. Paco Norman Work Phone: [facility] 08-20-2023 13:14-0500 Diastolic blood pressure 63 mm[Hg] Dr. Paco Norman Work Phone: [facility] [facility] 08-20-2023 13:14-0500 Heart rate 74 /min Dr. Paco Norman Work Phone: [facility] 08-20-2023 13:14-0500 Respiratory rate 18 /min Dr. Paco Norman Work Phone: [facility] 08-20-2023 13:14-0500 Systolic blood pressure 144 mm[Hg] Dr. Paco Norman Work Phone: [facility] 08-18-2023 13:58-0500 Body height 177.[address] Paco Norman Work Phone: [facility] 08-18-2023 13:58-0500 Body mass index (BMI) [Ratio] 23.7 kg/m2 Dr. Paco Norman Work Phone: [facility] 08-18-2023 13:58-0500 Body temperature 98.7 [degF] Dr. Paco Norman Work Phone: [facility] 08-18-2023 13:58-0500 Body weight 74.[address] Paco Norman Work Phone: [facility] 08-18-2023 13:58-0500 Diastolic blood pressure 64 mm[Hg] Dr. Paco Norman Work Phone: [facility] 08-18-2023 13:58-0500 Heart rate 60 /min Dr. Paco Norman Work Phone: [facility] 08-18-2023 13:58-0500 Respiratory rate 18 /min Dr. Paco Norman Work Phone: [facility] 08-18-2023 13:58-0500 SaO2% (BldA) [Mass fraction] 98 % Dr. Paco Norman Work Phone: [facility] 08-18-2023 13:58-0500 Systolic blood pressure 146 mm[Hg] Dr. Paco Norman Work Phone: [facility] 07-31-2023 00:13-0500 Inhaled oxygen flow rate 2 L/min Dr. Paco Norman Work Phone: [facility] 07-31-2023 00:13-0500 SaO2% (BldA) [Mass fraction] 100 % Dr. Paco Norman Work Phone: [facility] 07-30-2023 14:11-0500 Body temperature 97.4 [degF] Dr. aPco Norman Work Phone: [facility] 07-30-2023 14:11-0500 Diastolic blood pressure 53 mm[Hg] Dr. Paco Norman Work Phone: [facility] 07-30-2023 14:11-0500 Heart rate 73 /min Dr. Paco Norman Work Phone: [facility] 07-30-2023 14:11-0500 Respiratory rate 18 /min Dr. Paco Norman Work Phone: [facility] 07-30-2023 14:11-0500 Systolic blood pressure 123 mm[Hg] Dr. Paco Norman Work Phone: [facility] 07-23-2023 14:09-0500 Inhaled oxygen flow rate 2 L/min Dr. Paco Norman Work Phone: [facility] 07-21-2023 14:50-0500 Diastolic blood pressure 50 mm[Hg] Dr. Paco Norman Work Phone: [facility] 07-21-2023 14:50-0500 Heart rate 62 /min Dr. Paco Norman Work Phone: [facility] 07-21-2023 14:50-0500 Systolic blood pressure 134 mm[Hg] Dr. Paco Norman Work Phone: [facility] 07-21-2023 14:09-0500 Body mass index (BMI) [Ratio] 25.1 kg/m2 Dr. Paco Norman Work Phone: [facility] 07-21-2023 14:09-0500 Body temperature 97.2 [degF] Dr. Paco Norman Work Phone: [facility] 07-21-2023 14:09-0500 Inhaled oxygen flow rate 2 L/min Dr. Paco Norman Work Phone: [facility] 07-21-2023 14:09-0500 Respiratory rate 16 /min Dr. Paco Norman Work Phone: [facility] 07-21-2023 14:09-0500 SaO2% (BldA) [Mass fraction] 99 % Dr. Paco Norman Work Phone: [facility] 07-16-2023 14:26-0500 SaO2% (BldA) [Mass fraction] 100 % Dr. Paco Norman Work Phone: [facility] 07-09-2023 14:08-0500 Body temperature 96.8 [degF] Dr. Paco Norman Work Phone: [facility] 07-09-2023 14:08-0500 Diastolic blood pressure 39 mm[Hg] Dr. Paco Norman Work Phone: [facility] 07-09-2023 14:08-0500 Heart rate 72 /min Dr. Paco Norman Work Phone: [facility] 07-09-2023 14:08-0500 Inhaled oxygen flow rate 2 L/min Dr. Paco Norman Work Phone: [facility] 07-09-2023 14:08-0500 Respiratory rate 18 /min Dr. Paco Norman Work Phone: [facility] 07-09-2023 14:08-0500 SaO2% (BldA) [Mass fraction] 92 % Dr. Paco Norman Work Phone: [facility] 07-09-2023 14:08-0500 Systolic blood pressure 131 mm[Hg] Dr. Paco Norman Work Phone: [facility] 07-07-2023 14:43-0500 Body height 177.[address] Paco Norman Work Phone: [facility] 07-07-2023 14:43-0500 Body mass index (BMI) [Ratio] 25.3 kg/m2 Dr. Paco Norman Work Phone: [facility] 07-07-2023 14:43-0500 Body temperature 98.2 [degF] Dr. Paco Norman Work Phone: [facility] 07-07-2023 14:43-0500 Body weight 80.[address] Paco Norman Work Phone: [facility] 07-07-2023 14:43-0500 Diastolic blood pressure 53 mm[Hg] Dr. Paco Norman Work Phone: [facility] 07-07-2023 14:43-0500 Heart rate 63 /min Dr. Paco Norman Work Phone: [facility] 07-07-2023 14:43-0500 Respiratory rate 18 /min Dr. Paco Norman Work Phone: [facility] 07-07-2023 14:43-0500 SaO2% (BldA) [Mass fraction] 95 % Dr. Paco Norman Work Phone: [facility] 07-07-2023 14:43-0500 Systolic blood pressure 117 mm[Hg] Dr. Paco Norman Work Phone: [facility] 06-25-2023 15:35-0500 Body temperature 97.6 [degF] Dr. Paco Norman Work Phone: [facility] 06-25-2023 15:35-0500 Diastolic blood pressure 61 mm[Hg] Dr. Paco Norman Work Phone: [facility] 06-25-2023 15:35-0500 Heart rate 62 /min Dr. Paco Norman Work Phone: [facility] 06-25-2023 15:35-0500 Inhaled oxygen flow rate 2 L/min Dr. Paco Norman Work Phone: [facility] 06-25-2023 15:35-0500 Respiratory rate 16 /min Dr. Paco Norman Work Phone: [facility] 06-25-2023 15:35-0500 SaO2% (BldA) [Mass fraction] 97 % Dr. Paco Norman Work Phone: [facility] 06-25-2023 15:35-0500 Systolic blood pressure 155 mm[Hg] Dr. Paco Norman Work Phone: [facility] 06-25-2023 11:54-0500 Body height 177.[address] Paco Norman Work Phone: [facility] 06-25-2023 11:54-0500 Body weight 85.[address] Paco Norman Work Phone: [facility] 06-24-2023 09:54-0500 Body mass index (BMI) [Ratio] 26.9 kg/m2 Dr. Paco Norman Work Phone: [facility] 06-20-2023 07:55-0500 Body temperature 97.6 [degF] Dr. Paco Norman Work Phone: [facility] 06-20-2023 07:55-0500 Diastolic blood pressure 75 mm[Hg] Dr. Paco Norman Work Phone: [facility] 06-20-2023 07:55-0500 Heart rate 44 /min Dr. Paco Norman Work Phone: [facility] 06-20-2023 07:55-0500 Respiratory rate 14 /min Dr. Paco Norman Work Phone: [facility] 06-20-2023 07:55-0500 SaO2% (BldA) [Mass fraction] 99 % Dr. Paco Norman Work Phone: [facility] 06-20-2023 07:55-0500 Systolic blood pressure 125 mm[Hg] Dr. Paco Norman Work Phone: [facility] 06-20-2023 00:43-0500 Body height 177.[address] Paco Norman Work Phone: [facility] 06-20-2023 00:43-0500 Body mass index (BMI) [Ratio] 27.4 kg/m2 Dr. Paco Norman Work Phone: [facility] 06-20-2023 00:43-0500 Body weight 86.[address] Paco Norman Work Phone: [facility] 06-18-2023 13:53-0500 Diastolic blood pressure 66 mm[Hg] Dr. Paco Norman Work Phone: [facility] 06-18-2023 13:53-0500 Heart rate 58 /min Dr. Paco Norman Work Phone: [facility] 06-18-2023 13:53-0500 Respiratory rate 20 /min Dr. Paco Norman Work Phone: [facility] 06-18-2023 13:53-0500 Systolic blood pressure 135 mm[Hg] Dr. Paco Norman Work Phone: [facility] 06-18-2023 11:35-0500 Body temperature 97.8 [degF] Dr. Paco Norman Work Phone: [facility] 06-18-2023 11:35-0500 Body weight 84.[address] Paco Norman Work Phone: [facility] 06-18-2023 11:35-0500 Diastolic blood pressure 55 mm[Hg] Dr. Paco Norman Work Phone: [facility] 06-18-2023 11:35-0500 Heart rate 61 /min Dr. Paco Norman Work Phone: [facility] 06-18-2023 11:35-0500 Respiratory rate 18 /min Dr. Paco Norman Work Phone: [facility] 06-18-2023 11:35-0500 Systolic blood pressure 119 mm[Hg] Dr. Paco Norman Work Phone: [facility] 06-11-2023 11:37-0500 Body temperature 97.1 [degF] Dr. Paco Norman Work Phone: [facility] 06-06-2023 17:06-0500 Diastolic blood pressure 76 mm[Hg] Dr. Paco Norman Work Phone: [facility] 06-06-2023 17:06-0500 Heart rate 60 /min Dr. Paco Norman Work Phone: [facility] 06-06-2023 17:06-0500 Respiratory rate 16 /min Dr. Paco Norman Work Phone: [facility] 06-06-2023 17:06-0500 SaO2% (BldA) [Mass fraction] 92 % Dr. Paco Norman Work Phone: [facility] 06-06-2023 17:06-0500 Systolic blood pressure 158 mm[Hg] Dr. Paco Norman Work Phone: [facility] 06-06-2023 14:01-0500 Body height 180.[address] Paco Norman Work Phone: [facility] 06-06-2023 14:01-0500 Body temperature 97 [degF] Dr. Paco Norman Work Phone: [facility] 06-04-2023 11:30-0500 Body temperature 97 [degF] Dr. Paco Norman Work Phone: [facility] 06-04-2023 11:30-0500 Diastolic blood pressure 62 mm[Hg] Dr. Paco Norman Work Phone: [facility] 06-04-2023 11:30-0500 Heart rate 74 /min Dr. Paco Norman Work Phone: [facility] 06-04-2023 11:30-0500 Respiratory rate 18 /min Dr. Paco Norman Work Phone: [facility] 06-04-2023 11:30-0500 Systolic blood pressure 140 mm[Hg] Dr. Paco Norman Work Phone: [facility] 05-21-2023 13:21-0500 Body temperature 97.2 [degF] Dr. Paco Norman Work Phone: [facility] 05-21-2023 13:21-0500 Diastolic blood pressure 50 mm[Hg] Dr. Paco Norman Work Phone: [facility] 05-21-2023 13:21-0500 Heart rate 57 /min Dr. Paco Norman Work Phone: [facility] 05-21-2023 13:21-0500 Respiratory rate 18 /min Dr. Paco Norman Work Phone: [facility] 05-21-2023 13:21-0500 Systolic blood pressure 143 mm[Hg] Dr. Paco Norman Work Phone: [facility] 05-14-2023 14:28-0500 Body temperature 96.9 [degF] Dr. Rosa Maria Santacruz Work Phone: [facility] 05-14-2023 14:28-0500 Diastolic blood pressure 55 mm[Hg] Dr. Rosa Maria Santacruz Work Phone: [facility] 05-14-2023 14:28-0500 Heart rate 62 /min Dr. Rosa Maria Santacruz Work Phone: [facility] 05-14-2023 14:28-0500 Respiratory rate 16 /min Dr. Rosa Maria Santacruz Work Phone: [facility] 05-14-2023 14:28-0500 Systolic blood pressure 112 mm[Hg] Dr. Rosa Maria Santacruz Work Phone: [facility] 05-08-2023 11:28-0500 Body temperature 98.2 [degF] Dr. Rosa Maria Santacruz Work Phone: [facility] 05-08-2023 11:28-0500 Body weight 81.[address] Rosa Maria Santacruz Work Phone: [facility] 05-08-2023 11:28-0500 Diastolic blood pressure 62 mm[Hg] Dr. Rosa Maria Santacruz Work Phone: [facility] 05-08-2023 11:28-0500 Heart rate 60 /min Dr. Rosa Maria Santacruz Work Phone: [facility] 05-08-2023 11:28-0500 Respiratory rate 16 /min Dr. Rosa Maria Santacruz Work Phone: [facility] 05-08-2023 11:28-0500 SaO2% (BldA) [Mass fraction] 96 % Dr. Rosa Maria Santacruz Work Phone: [facility] 05-08-2023 11:28-0500 Systolic blood pressure 124 mm[Hg] Dr. Rosa Maria Santacruz Work Phone: [facility] 04-23-2023 13:46-0400 Body temperature 96.8 [degF] Dr. Paco Norman Work Phone: [facility] 04-23-2023 13:46-0400 Diastolic blood pressure 49 mm[Hg] Dr. Paco Norman Work Phone: [facility] 04-23-2023 13:46-0400 Heart rate 66 /min Dr. Paco Norman Work Phone: [facility] 04-23-2023 13:46-0400 Respiratory rate 18 /min Dr. Paco Norman Work Phone: [facility] 04-23-2023 13:46-0400 Systolic blood pressure 170 mm[Hg] Dr. Paco Norman Work Phone: [facility] 04-14-2023 14:27-0400 Body height 180.[address] Paco Norman Work Phone: [facility] 04-14-2023 14:27-0400 Body mass index (BMI) [Ratio] 22.6 kg/m2 Dr. Paco Norman Work Phone: [facility] 04-14-2023 14:27-0400 Body temperature 98.7 [degF] Dr. Paco Norman Work Phone: [facility] 04-14-2023 14:27-0400 Body weight 73.[address] Paco Norman Work Phone: [facility] 04-14-2023 14:27-0400 Diastolic blood pressure 68 mm[Hg] Dr. Paco Norman Work Phone: [facility] 04-14-2023 14:27-0400 Heart rate 57 /min Dr. Paco Norman Work Phone: [facility] 04-14-2023 14:27-0400 Respiratory rate 16 /min Dr. Paco Norman Work Phone: [facility] 04-14-2023 14:27-0400 SaO2% (BldA) [Mass fraction] 99 % Dr. Paco Norman Work Phone: [facility] 04-14-2023 14:27-0400 Systolic blood pressure 117 mm[Hg] Dr. Paco Norman Work Phone: [facility] 01-24-2023 14:06-0400 Body height 180.[address] Rosa Maria Santacruz Work Phone: [facility] 01-24-2023 14:06-0400 Body mass index (BMI) [Ratio] 21.4 kg/m2 Dr. Rosa Maria Santacruz Work Phone: [facility] 01-24-2023 14:06-0400 Body weight 69.[address] Rosa Maria Santacruz Work Phone: [facility] 01-24-2023 14:06-0400 Diastolic blood pressure 41 mm[Hg] Dr. Rosa Maria Santacruz Work Phone: [facility] 01-24-2023 14:06-0400 Heart rate 61 /min Dr. Rosa Maria Santacruz Work Phone: [facility] 01-24-2023 14:06-0400 Respiratory rate 18 /min Dr. Rosa Maria Santacruz Work Phone: [facility] 01-24-2023 14:06-0400 SaO2% (BldA) [Mass fraction] 96 % Dr. Rosa Maria Santacruz Work Phone: [facility] 01-24-2023 14:06-0400 Systolic blood pressure 69 mm[Hg] Dr. Rosa Maria Santacruz Work Phone: [facility] 01-22-2023 11:47-0400 Body height 177.8 cm Azucenalinda Hsugatmonika [employer] Work Phone: [facility] 01-22-2023 11:47-0400 Body weight 75 kg Azucena Fegatelli [employer] Work Phone: [facility] 01-22-2023 11:47-0400 Diastolic blood pressure 51 mm[Hg] Azucena Fegatelli [employer] Work Phone: [facility] 01-22-2023 11:47-0400 Heart rate 66 /min Azucena Fegatelli [employer] Work Phone: [facility] 01-22-2023 11:47-0400 SaO2% (BldA) [Mass fraction] 98 % Azucena Fegatelli [employer] Work Phone: [facility] 01-22-2023 11:47-0400 Systolic blood pressure 87 mm[Hg] Azucena Fegatelli [employer] Work Phone: [facility] 01-03-2023 09:22-0400 Diastolic blood pressure 96 mm[Hg] Dr. Rosa Maria Santacruz Work Phone: [facility] 01-03-2023 09:22-0400 Systolic blood pressure 166 mm[Hg] Dr. Rosa Maria Santacruz Work Phone: [facility] 01-03-2023 08:47-0400 Heart rate 62 /min Dr. Rosa Maria Santacruz Work Phone: [facility] 01-03-2023 08:47-0400 Respiratory rate 16 /min Dr. Rosa Maria Santacruz Work Phone: [facility] 01-03-2023 08:47-0400 SaO2% (BldA) [Mass fraction] 96 % Dr. Rosa Maria Santacruz Work Phone: 8(473)082-211113 [address] [address] 01-03-2023 06:40-0400 Body height 180.[address] Rosa Maria Santacruz Work Phone: [facility] 01-03-2023 06:40-0400 Body mass index (BMI) [Ratio] 22.3 kg/m2 Dr. Rosa Maria Santacruz Work Phone: [facility] 01-03-2023 06:40-0400 Body temperature 98.6 [degF] Dr. Rosa Maria Santacruz Work Phone: [facility] 01-03-2023 06:40-0400 Body weight 72.[address] Rosa Maria Santacruz Work Phone: [facility] 12-23-2022 09:30-0400 Respiratory rate 16 /min Dr. Rosa Maria Santacruz Work Phone: [facility] 12-23-2022 08:12-0400 Body temperature 98.1 [degF] Dr. Rosa Maria Santacruz Work Phone: [facility] 12-23-2022 08:12-0400 Diastolic blood pressure 51 mm[Hg] Dr. Rosa Maria Santacruz Work Phone: [facility] 12-23-2022 08:12-0400 Heart rate 68 /min Dr. Rosa Maria Santacruz Work Phone: [facility] 12-23-2022 08:12-0400 SaO2% (BldA) [Mass fraction] 94 % Dr. Rosa Maria Santacruz Work Phone: [facility] 12-23-2022 08:12-0400 Systolic blood pressure 113 mm[Hg] Dr. Rosa Maria Santacruz Work Phone: [facility] 12-23-2022 05:49-0400 Body mass index (BMI) [Ratio] 23.3 kg/m2 Dr. Rosa Maria Santacruz Work Phone: [facility] 12-23-2022 05:49-0400 Body weight 75.[address] Rosa Maria Santacruz Work Phone: [facility] 12-23-2022 05:09-0400 Body temperature 98.8 [degF] Dr. Rosa Maria Santacruz Work Phone: [facility] 12-23-2022 05:09-0400 Diastolic blood pressure 57 mm[Hg] Dr. Rosa Maria Santacruz Work Phone: [facility] 12-23-2022 05:09-0400 Heart rate 60 /min Dr. Rosa Maria Santacruz Work Phone: [facility] 12-23-2022 05:09-0400 Respiratory rate 16 /min Dr. Rosa Maria Santacruz Work Phone: [facility] 12-23-2022 05:09-0400 SaO2% (BldA) [Mass fraction] 95 % Dr. Rosa Maria Santacruz Work Phone: [facility] 12-23-2022 05:09-0400 Systolic blood pressure 159 mm[Hg] Dr. Rosa Maria Santacruz Work Phone: [facility] 12-20-2022 17:28-0400 Body temperature 98 [degF] Dr. Rosa Maria Santacruz Work Phone: [facility] 12-20-2022 17:28-0400 Diastolic blood pressure 77 mm[Hg] Dr. Rosa Maria Santacruz Work Phone: [facility] 12-20-2022 17:28-0400 Heart rate 59 /min Dr. Rosa Maria Santarcuz Work Phone: [facility] 12-20-2022 17:28-0400 Respiratory rate 16 /min Dr. Rosa Maria Santacruz Work Phone: [facility] 12-20-2022 17:28-0400 SaO2% (BldA) [Mass fraction] 99 % Dr. Rosa Maria Santacruz Work Phone: [facility] 12-20-2022 17:28-0400 Systolic blood pressure 157 mm[Hg] Dr. Rosa Maria Santacruz Work Phone: [facility] 12-20-2022 17:15-0400 Inhaled oxygen flow rate 2 L/min Dr. Rosa Maria Santacruz Work Phone: [facility] 12-20-2022 15:14-0400 Body height 180.[address] Rosa Maria Santacruz Work Phone: [facility] 12-20-2022 15:14-0400 Body mass index (BMI) [Ratio] 55.6 kg/m2 Dr. Rosa Maria Santacruz Work Phone: [facility] 12-20-2022 15:14-0400 Body weight [address] Rosa Maria Santacruz Work Phone: [facility] 12-18-2022 21:12-0400 Diastolic blood pressure 61 mm[Hg] Dr. Rosa Maria Santacruz Work Phone: [facility] 12-18-2022 21:12-0400 Heart rate 66 /min Dr. Rosa Maria Santacruz Work Phone: [facility] 12-18-2022 21:12-0400 Respiratory rate 18 /min Dr. Rosa Maria Santacruz Work Phone: [facility] 12-18-2022 21:12-0400 Systolic blood pressure 167 mm[Hg] Dr. Rosa Maria Santacruz Work Phone: [facility] 12-18-2022 17:05-0400 Body mass index (BMI) [Ratio] 23.7 kg/m2 Dr. Rosa Maria Santacruz Work Phone: [facility] 12-18-2022 17:05-0400 Body weight 75.[address] Rosa Maria Santacruz Work Phone: [facility] 12-18-2022 14:41-0400 Body height 177.[address] Rosa Maria Santacruz Work Phone: [facility] 12-18-2022 14:05-0400 Body temperature 97.2 [degF] Dr. Rosa Maria Santacruz Work Phone: [facility] 12-18-2022 14:05-0400 Diastolic blood pressure 52 mm[Hg] Dr. Rosa Maria Santacruz Work Phone: [facility] 12-18-2022 14:05-0400 Heart rate 62 /min Dr. Rosa Maria Santacruz Work Phone: [facility] 12-18-2022 14:05-0400 Respiratory rate 16 /min Dr. Rosa Maria Santacruz Work Phone: [facility] 12-18-2022 14:05-0400 Systolic blood pressure 122 mm[Hg] Dr. Rosa Maria Santacruz Work Phone: [facility] 12-18-2022 12:05-0400 SaO2% (BldA) [Mass fraction] 97 % Dr. Rosa Maria Santacruz Work Phone: [facility] 12-03-2022 15:45-0400 Body temperature 98.9 [degF] Dr. Rosa Maria Santacruz Work Phone: [facility] 12-03-2022 15:45-0400 Diastolic blood pressure 58 mm[Hg] Dr. Rosa Maria Santacruz Work Phone: [facility] 12-03-2022 15:45-0400 Heart rate 72 /min Dr. Rosa Maria Santacruz Work Phone: [facility] 12-03-2022 15:45-0400 Respiratory rate 16 /min Dr. Rosa Maria Santacruz Work Phone: [facility] 12-03-2022 15:45-0400 SaO2% (BldA) [Mass fraction] 97 % Dr. Rosa Maria Santacruz Work Phone: [facility] 12-03-2022 15:45-0400 Systolic blood pressure 116 mm[Hg] Dr. Rosa Maria Santacruz Work Phone: 8(243)728-571393 [address] 12-03-2022 03:48-0400 Body mass index (BMI) [Ratio] 25.4 kg/m2 Dr. Rosa Maria Santacruz Work Phone: 1(976)[phone] [place] [address] 12-03-2022 03:48-0400 Body weight 80.[address] Rosa Maria Santacruz Work Phone: 2(948)[phone] [place] [address] 11-29-2022 15:01-0400 Body height 177.[address] Rosa Maria Santacruz Work Phone: 5(239)198-568093 [address] 11-29-2022 04:00-0400 Diastolic blood pressure 53 mm[Hg] Dr. Rosa Maria Santacruz Work Phone: 8(835)540-187413 [place] [address] 11-29-2022 04:00-0400 Heart rate 59 /min Dr. Rosa Maria Santacruz Work Phone: 4(745)351-678593 [address] 11-29-2022 04:00-0400 Respiratory rate 16 /min Dr. Rosa Maria Santacruz Work Phone: 3(255)[phone] [place] [address] 11-29-2022 04:00-0400 SaO2% (BldA) [Mass fraction] 96 % Dr. Rosa Maria Santacruz Work Phone: [facility] 11-29-2022 04:00-0400 Systolic blood pressure 125 mm[Hg] Dr. Rosa Maria Santacruz Work Phone: 6(923)967-855813 [place] [address] 11-29-2022 03:00-0400 Body temperature 100.8 [degF] Dr. Rosa Maria Santacruz Work Phone: 6(489)[phone] [place] [address] 11-29-2022 01:38-0400 Body height 180.[address] Rosa Maria Santacruz Work Phone: 0(009)586-084213 [place] [address] 11-29-2022 01:38-0400 Body mass index (BMI) [Ratio] 25.1 kg/m2 Dr. Rosa Maria Santacruz Work Phone: [facility] 11-29-2022 01:38-0400 Body weight 81.[address] Rosa Maria Santacruz Work Phone: [facility] 10-17-2022 10:03-0400 Body height 180.[address] Rosa Maria Santacruz Work Phone: [facility] 10-17-2022 10:03-0400 Body mass index (BMI) [Ratio] 25.2 kg/m2 Dr. Rosa Maria Santacruz Work Phone: 8(438)967-764693 [address] 10-17-2022 10:03-0400 Body weight 82.[address] Rosa Maria Santacruz Work Phone: [phone] [address] 10-17-2022 10:03-0400 Diastolic blood pressure 67 mm[Hg] Dr. Rosa Maria Santacruz Work Phone: [phone] [address] [address] 10-17-2022 10:03-0400 Heart rate 58 /min Dr. Rosa Maria Santacruz Work Phone: [phone] [address] 10-17-2022 10:03-0400 Respiratory rate 18 /min Dr. Rosa Maria Santacruz Work Phone: [phone] [address] [address] 10-17-2022 10:03-0400 SaO2% (BldA) [Mass fraction] 95 % Dr. Rosa Maria Santacruz Work Phone: [facility] 10-17-2022 10:03-0400 Systolic blood pressure 163 mm[Hg] Dr. Rosa Maria Santacruz Work Phone: [phone] [place] [address] 06-20-2022 13:15-0500 Body height 180.[address] Rosa Maria Santacruz Work Phone: [phone] [place] [address] 06-20-2022 13:15-0500 Body mass index (BMI) [Ratio] 24.8 kg/m2 Dr. Rosa Maria Santacruz Work Phone: [facility] 06-20-2022 13:15-0500 Body weight 80.[address] Rosa Maria Santacruz Work Phone: [facility] 06-20-2022 13:15-0500 Diastolic blood pressure 70 mm[Hg] Dr. Rosa Maria Santacruz Work Phone: [facility] 06-20-2022 13:15-0500 Heart rate 56 /min Dr. Rosa Maria Santacruz Work Phone: [facility] 06-20-2022 13:15-0500 Systolic blood pressure 148 mm[Hg] Dr. Rosa Maria Santacruz Work Phone: [facility] 06-05-2022 11:08-0500 Body mass index (BMI) [Ratio] 24.1 kg/m2 Dr. Rosa Maria Santacruz Work Phone: [phone](135)[phone] [place] [address] 06-05-2022 11:08-0500 Body weight 78.[address] Rosa Maria Santacruz Work Phone: [facility] 06-05-2022 11:08-0500 Diastolic blood pressure 78 mm[Hg] Dr. Rosa Maria Santacruz Work Phone: [facility] 06-05-2022 11:08-0500 Heart rate 50 /min Dr. Rosa Maria Santacruz Work Phone: [facility] 06-05-2022 11:08-0500 Respiratory rate 20 /min Dr. Rosa Maria Santacruz Work Phone: [facility] 06-05-2022 11:08-0500 SaO2% (BldA) [Mass fraction] 98 % Dr. Rosa Maria Santacruz Work Phone: [facility] 06-05-2022 11:08-0500 Systolic blood pressure 199 mm[Hg] Dr. Rosa Maria Santacruz Work Phone: [facility] 05-20-2022 19:39-0500 Diastolic blood pressure 72 mm[Hg] Dr. Rosa Maria Santacruz Work Phone: [facility] 05-20-2022 19:39-0500 Heart rate 56 /min Dr. Rosa Maria Santacruz Work Phone: [facility] 05-20-2022 19:39-0500 Respiratory rate 25 /min Dr. Rosa Maria Santacruz Work Phone: [facility] 05-20-2022 19:39-0500 SaO2% (BldA) [Mass fraction] 97 % Dr. Rosa Maria Santacruz Work Phone: [facility] 05-20-2022 19:39-0500 Systolic blood pressure 222 mm[Hg] Dr. Rosa Maria Santacruz Work Phone: [facility] 05-20-2022 15:23-0500 Body mass index (BMI) [Ratio] 25.1 kg/m2 Dr. Rosa Maria Santacruz Work Phone: [facility] 05-20-2022 15:23-0500 Body temperature 97.1 [degF] Dr. Rosa Maria Santacruz Work Phone: [facility] 05-20-2022 15:23-0500 Body weight 81.[address] Rosa Maria Santacruz Work Phone: [facility] 04-03-2022 13:35-0400 Body height 180.[address] Rosa Maria Santacruz Work Phone: [facility] Work Phone: 04-03-2022 13:30-0400 Body mass index (BMI) [Ratio] 25.1 kg/m2 Dr. Rosa Maria Santacruz Work Phone: [facility] Work Phone: 04-03-2022 13:30-0400 Body temperature 98.3 [degF] Dr. Rosa Maria Santacruz Work Phone: [facility] Work Phone: 04-03-2022 13:30-0400 Body weight 81.[address] Rosa Maria Santacruz Work Phone: [facility] Work Phone: 04-03-2022 13:30-0400 Diastolic blood pressure 78 mm[Hg] Dr. Rosa Maria Santacruz Work Phone: [facility] Work Phone: 04-03-2022 13:30-0400 Heart rate 56 /min Dr. Rosa Maria Santacruz Work Phone: [facility] Work Phone: 04-03-2022 13:30-0400 Respiratory rate 16 /min Dr. Rosa Maria Santacruz Work Phone: [facility] Work Phone: 04-03-2022 13:30-0400 SaO2% (BldA) [Mass fraction] 98 % Dr. Rosa Maria Santacruz Work Phone: [facility] Work Phone: 04-03-2022 13:30-0400 Systolic blood pressure 162 mm[Hg] Dr. Rosa Maria Santacruz Work Phone: [facility] Work Phone: 10-07-2020 12:36-0400 Body Temperature 97.7 [...] Provider Facility Start: 05-12-2025 ambulatory Paco ANTONIO Facility:[facility] Start: 05-11-2025 End: 05-11-2025 Emergency department patient visit Leo Shen Facility:[facility] Start: 05-11-2025 ambulatory Paco ANTONIO Facility:[facility] Start: 05-06-2025 ambulatory Honey han OLS Facility:[facility] Start: 05-04-2025 ambulatory Paco Shaquille he OLS Facility:[facility] Start: 04-26-2025 ambulatory Odette Harman Facility:[facility] Start: 04-26-2025 ambulatory Oniel Moulton Facility: [facility] Start: 04-26-2025 End: 05-03-2025 Evaluation and management of inpatient Vicente Cortez Facility:[facility] Start: 03-03-2025 End: 03-03-[address] Rosa Maria Santacruz MD Work Phone: -[facility] Start: 03-03-2025 End: 03-03-2025 Dr. Mathieu Mcintyre MD -[facility] Work Phone: Start: 02-23-2025 End: 02-23-2025 Admission to same day surgery center Dr. Singh Amaya MD -Portfolio Lead/Special Procedures Work Phone: Start: 02-23-2025 End: 02-23-2025 Dr. Singh Amaya MD -Portfolio Lead/Special Procedures Work Phone: Start: 02-23-2025 End: 02-23-[address] Rosa Maria Santacruz MD Work Phone: -Portfolio Lead/Special Procedures Start: 02-15-2025 End: 02-15-[address] Rosa Maria Santacruz MD Work Phone: -[facility] Start: 02-15-2025 End: 02-15-[address] Jakob Flower MD -[facility] Work Phone: Start: 02-15-2025 End: 02-15-2025 Dr. Jakob Flower MD -[facility] Work Phone: Start: 02-15-2025 End: 02-15-2025 ambulatory Singh Amaya Facility:[facility] Start: 01-10-2025 [facility]: 12-27-[facility]24 ambulatory Aurelia Chasidy [facility] lity:[facility] Start: 12-27-2024 Non-patient / Non-visit Dr. Jena Umaña MD -[facility] Start: 12-27-2024 Dr. Aurelia Umaña MD -[facility] Start: 12-27-2024 End: 12-27-2024 Admission to same day surgery center Dr. Aurelia Umaña MD -[facility] Start: 12-27-2024 End: 12-27-2024 Dr. Aurelia Umaña MD -[facility] Start: 12-27-2024 End: 12-27-[address] Rosa Maria Santacruz MD Work Phone: -[facility] Start: 12-16-2024 End: 12-16-2024 ambulatory Aurelia Umaña Facility:[facility] Start: 12-16-2024 End: 12-16-2024 Non-patient / Non-visit Dr. Raquel Luevano MD -[facility] Work Phone: Start: 12-16-2024 End: 12-16-2024 Dr. Raquel Luevano MD -[facility] Work Phone: Start: 12-10-2024 End: 12-10-[address] Aurelia Umaña MD -[facility] Work Phone: Start: 12-10-2024 End: 12-10-2024 Dr. Aurelia Umaña MD -[facility] Work Phone: Start: 12-10-2024 End: 12-10-[address] Rosa Maria Santacruz MD Work Phone: [facility] Work Phone: Start: 12-06-2024 End: 12-06-[address] Rosa Maria Santacruz MD Work Phone: [facility] Work Phone: Start: 12-06-2024 End: 12-06-[address] Jakob Flower MD -[facility] Work Phone: Start: 12-06-2024 End: 12-06-2024 Dr. Jakob Flower MD -[facility] Work Phone: Start: 12-06-2024 End: 12-06-2024 ambulatory [facility] Facility:[facility] Start: 11-29-2024 End: 11-29-[address] Rosa Maria Santacruz MD Work Phone: [facility] Work Phone: Start: 11-29-2024 End: 11-29-[address] Jakob Flower MD -[facility] Work Phone: Start: 11-29-2024 End: 11-29-2024 Dr. Jakob Flower MD -[facility] Work Phone: Start: 11-29-2024 End: 11-29-2024 ambulatory [facility] Facility:[facility] Start: 11-18-2024 End: 11-18-[address] Rosa Maria Santacruz MD Work Phone: [facility] Work Phone: Start: 11-18-2024 End: 11-18-[address] Singh Amaya MD -Cat Scan [facility] Work Phone: Start: 11-18-2024 End: 11-18-2024 Dr. Singh Amaya MD -Cat Scan [facility] Work Phone: Start: 11-18-2024 End: 11-18-2024 ambulatory Singh Amaya [facility] Start: 11-08-2024 End: 11-08-2024 Dr. Frederick Roberts MD -Emergency Department Work Phone: Start: 11-08-2024 End: 11-08-2024 Emergency department patient visit Dr. Rosa Maria Santacruz MD Work Phone: -Emergency Department Work Phone: Start: 11-08-2024 End: 11-08-[address] Mathieu Mcintyre MD -[facility] Work Phone: Start: 11-08-2024 End: 11-08-2024 ambulatory Mathieu Mcintyre Facility:[facility] Start: 11-08-[address] Mathieu Mcintyre MD -[facility] Start: 11-08-2024 End: 11-08-2024 Dr. Mathieu Mcintyre MD -[facility] Work Phone: Start: 10-06-2024 End: 10-06-[address] Rosa Maria Santacruz MD Work Phone: [facility] Work Phone: Start: 10-06-2024 End: 10-06-[address] Singh Amaya MD -Cardiovascular Services Work Phone: Start: 10-06-2024 End: 10-06-2024 Dr. Singh Amaya MD -Cardiovascular Services Work Phone: Start: 10-06-2024 End: 10-06-2024 ambulatory Singh Amaya Facility:[facility] Start: 10-01-2024 End: 10-01-2024 Patient encounter procedure Dayne ARITA -[facility] Work Phone: Start: 10-01-2024 End: 10-01-2024 Dayne ARITA -[facility] Work Phone: Start: 10-01-2024 End: 10-01-2024 ambulatory Rosa Maria Santacruz Facility:[facility] [place] [place] Start: 09-14-2024 End: 09-14-[address] Rosa Maria Santacruz MD Work Phone: [facility] Work Phone: Start: 09-14-2024 End: 09-14-[address] [facility] Start: 09-14-2024 End: 09-14-2024 Dr. Rosa Maria Santacruz MD -[facility] [place] Work Phone: Start: 09-14-2024 End: 09-14-2024 ambulatory Rosa Maria Santacruz Facility:[facility] Start: 11-10-2023 End: 11-10-2023 Emergency department patient visit Dr. Rosa Maria Santacruz Work Phone: [facility]-Emergency Department Work Phone: Start: 11-10-2023 End: 11-10-[address] Rosa Maria Santacruz Work Phone: [facility] Work Phone: Start: 11-10-[address] Rosa Maria faria Work Phone: [facility] Start: 09-29-2023 End: 09-29-[address] Rosa Maria Santacruz Work Phone: [facility] Work Phone: Start: 09-10-2023 End: 09-11-[address] Rosa Maria Santacruz Work Phone: [facility] Work Phone: Start: 09-10-2023 End: 09-11-[address] Rosa Maria [facility]acruz [facility] Work Phone: Start: 09-10-2023 End: 09-11-2023 Dr. Rosa Maria Santacruz Work Phone: [facility] Work Phone: Start: 09-03-2023 Dr. Rosa Maria leblanc Work Phone: [facility] Work Phone: Start: 09-03-2023 End: 09-03-[address] Rosa Maria Santacruz Work Phone: [facility] Work Phone: Start: 09-03-2023 End: 09-03-[address] Rosa Maria Santacruz Work Phone: [facility] Work Phone: Start: 09-03-2023 End: 09-03-2023 Dr. Rosa Maria Santacruz Work Phone: [facility] Work Phone: Start: 08-27-2023 End: 08-28-[address] Paco Norman Work Phone: [facility] Work Phone: Start: 08-27-2023 End: 08-28-[address] Rosa Maria Santacruz Work Phone: [facility] Work Phone: Start: 08-27-2023 End: 08-28-2023 Dr. Paco Norman Work Phone: [facility] Work Phone: Start: 08-25-2023 End: 08-25-[address] Rosa Maria Santacruz Work Phone: [facility] Work Phone: Start: 08-25-2023 End: 08-25-2023 Dr. Paco Norman Work Phone: [facility] Work Phone: Start: 08-20-2023 Dr. Paco Norman Work Phone: [facility] Work Phone: Start: 08-19-2023 End: 08-19-[address] Paco Norman Work Phone: [facility] Work Phone: Start: 08-19-2023 End: 08-19-[address] Rosa [facility] Start: 08-19-2023 End: 08-19-2023 Dr. Paco Norman [facility] Start: 08-18-2023 End: 08-18-[address] Rosa Maria Santacruz Work Phone: [facility] Work Phone: Start: 08-18-2023 End: 08-18-2023 Dr. Paco Norman Work Phone: [facility] Work Phone: Start: 07-30-2023 End: 07-30-[address] Rosa Maria Santacruz Work Phone: [facility] Work Phone: Start: 07-30-2023 End: 07-30-2023 Dr. Paco Norman Work Phone: [facility] Work Phone: Start: 07-11-2023 Dr. Rosa [facility]blanc [facility] Start: 07-11-2023 Dr. Rosa Maria leblanc Work Phone: [facility] Work Phone: Start: 07-09-2023 Dr. Paco Norman Work Phone: [facility] Work Phone: Start: 07-08-2023 End: 07-08-[address] Paco Norman Work Phone: [facility] Work Phone: Start: 07-08-2023 End: 07-08-2023 Dr. [facility] Start: 07-07-2023 End: 07-07-2023 Dr. Paco Norman Work Phone: [facility] Work Phone: Start: 07-07-2023 Dr. Paco Norman Work Phone: [facility] Start: 07-04-2023 ambulatory NONE PHYSICIAN Facility :R Start: 06-25-2023 Dr. Paco Norman Work Phone: [facility] Work Phone: Start: 06-25-2023 Dr. Paco Norman Work Phone: [facility] Start: 06-24-2023 Dr. Paco Norman Work Phone: [facility] Start: 06-24-2023 Dr. Paco Norman Work Phone: [facility] Start: 06-23-2023 Dr. Paco Norman Work Phone: [facility] Start: 06-23-2023 Dr. Paco Norman Work Phone: [facility] Start: 06-22-2023 Dr. Paco Norman Work Phone: [facility] Work Phone: Start: 06-22-2023 Dr. Paco Norman Work Phone: [facility] Start: 06-21-2023 Dr. Paco Norman Work Phone: [facility] Work Phone: Start: 06-20-2023 Dr. Paco Norman Work Phone: [facility] Start: 06-20-2023 End: 06-25-2023 Evaluation and management of inpatient Dr. Paco Norman Work Phone: [facility] Work Phone: Start: 06-20-2023 End: 06-25-2023 Dr. Paco Norman Work Phone: [facility]-Progressive Care Unit Work Phone: Start: 06-18-2023 End: 06-29-[address] Paco Norman Work Phone: [facility] Work Phone: Start: 06-18-2023 End: 06-29-2023 Dr. Pac[facility] Norman [facility] Work [facility]: Start: 06-18-2023 End: 06-18-2023 Dr. Paco Norman Work Phone: [facility] Work Phone: Start: 06-06-2023 End: 06-06-2023 Emergency department patient visit Dr. Paco Norman Work Phone: [facility]-Emergency Department Work Phone: Start: 06-06-2023 End: 06-06-2023 Dr. Paco Norman Work Phone: [facility]Emergency [facility] Work Phone: Start: 06-04-[address] Krishan Norman [facility] Work Phone: Start: 05-21-2023 End: 05-29-[address] Paco Norman Work Phone: [facility] Work Phone: Start: 05-21-2023 End: 05-29-[address] Paco Norman Work Phone: [facility] Work Phone: Start: 05-21-2023 End: 05-29-2023 Dr. Paco Norman Work Phone: [facility] Work Phone: Start: 05-15-2023 Non-patient / Non-visit Dr. Jelena Norman Work Phone: [facility] Start: 05-15-2023 End: 05-15-[address] Rosa Maria Santacruz Work Phone: [facility] Work Phone: Start: 05-15-2023 End: 05-15-[address] Paco Norman [facility] Work Phone: Start: 05-15-2023 End: 05-15-2023 Dr. Rosa Maria Santacruz Work Phone: [facility] Start: 05-14-2023 Dr. Rosa Maria leblanc Work Phone: [facility] Work Phone: Start: 05-08-2023 End: 05-08-[address] Paco Norman Work Phone: [facility] Work Phone: Start: 05-08-2023 End: 05-08-2023 Dr. Rosa Maria Santacruz Work Phone: [facility] Work Phone: Start: 04-23-2023 End: 04-29-[address] Paco Norman Work Phone: [facility] Work Phone: Start: 04-23-2023 End: 04-29-[address] Paco Norman Work Phone: [facility] Work Phone: Start: 04-23-2023 End: 04-29-2023 Dr. Paco Norman Work Phone: [facility] Work Phone: Start: 04-14-2023 End: 04-14-[address] Paco Norman Work Phone: [facility] Work Phone: Start: 04-14-2023 End: 04-14-2023 Dr. Paco Norman Work Phone: [facility] Work Phone: Start: 03-26-[address] Brock Norman Work Phone: [facility] Start: 03-26-2023 Dr. Paco Norman Work Phone: [facility] Start: 03-25-[address] Brock Norman Work Phone: [facility] Start: 03-25-2023 Dr. Paco Norman Work Phone: [facility] Start: 03-19-[address] Brock Nroman Work Phone: [facility] Start: 03-19-2023 Dr. Paco Norman Work Phone: [facility] Start: 03-12-[address] Brock Norman Work Phone: [facility] Start: 03-12-2023 Dr. Paco Norman Work Phone: [facility] Start: 03-05-[address] Brock Norman Work Phone: [facility] Start: 03-05-2023 Dr[facility] Start: 02-26-[address] Brock [facility] Start: 02-26-2023 Dr. Paco Norman [facility] Start: 02-19-[address] Brock [facility] Start: 02-19-2023 Dr. Rosa Maria leblanc Work Phone[facility] Start: 02-12-[address] Brock Norman [facility] Start: 02-12-2023 Dr. Rosa Maria leblanc [facility] Phone[facility] Start: 02-05-2023 Dr. Rosa Maria leblanc Work Phone: [facility] Start: 01-30-2023 End: 01-30-[address] Rosa Maria Santacruz Work Phone: [facility] Work Phone: Start: 01-30-2023 End: 01-30-2023 Dr. Rosa Maria Santacruz Work Phone: [facility] Start: 01-29-2023 Dr. Rosa Maria leblanc Work Phone: [facility] Start: 01-24-2023 End: 01-24-2023 Dr. 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 Rosa Maria leblanc Work Phone: [facility] Start: 01-13-2023 Telephone encounter Errol Rosenberg MD Work Phone: [facility] Comment on above: Contact Center Call Start: 01-13-2023 Dr. Rosa Maria leblanc Work Phone: [facility] Start: 01-10-2023 End: 01-10-[address] Rosa Maria Santacruz Work Phone: [facility] Work Phone: Start: 01-10-2023 End: 01-10-2023 Dr. Rosa Maria Santacruz Work Phone: [facility] Work Phone: Start: 01-03-2023 End: 01-09-2023 Evaluation and management of inpatient ELIDA BORGES Facility:[facility] Start: 01-03-2023 End: 01-03-2023 Emergency department patient visit Dr. Rosa Maria Santacruz Work Phone: [facility] Work Phone: Start: 01-03-2023 End: 01-03-2023 Dr. Rosa Maria Santacruz Work Phone: [facility]-Emergency Department Work Phone: Start: 01-01-2023 End: 01-01-[address] Rosa Maria Santacruz Work Phone: [facility] Work Phone: Start: 01-01-2023 End: 01-01-2023 Dr. Rosa Maria Santacruz Work Phone: [facility] Start: 12-31-2022 End: 12-31-2022 Dr. Rosa Maria Santacruz Work Phone: [facility] Work Phone: Start: 12-24-[address] Rosa Maria bourgeois Work Phone: [facility] Start: 12-24-2022 End: 12-24-2022 Dr. Rosa Maria Santacruz Work Phone: [facility] Start: 12-23-2022 End: 12-23-2022 Dr. Rosa Maria Santacruz Work Phone: [facility] Work Phone: Start: 12-22-2022 End: 12-22-[address] Rosa Maria Santacruz Work Phone: [facility] Work Phone: Start: 12-22-2022 End: 12-22-[address] Rosa Maria Santacruz Work Phone: [facility] Start: 12-22-2022 End: 12-22-2022 Dr. Rosa Maria Santacruz Work Phone: [facility] Work Phone: Start: 12-20-2022 Non-patient / Non-visit Dr. Crissy Santacruz Work Phone: [facility] Start: 12-20-2022 Dr. Rosa Maria leblanc Work Phone: [facility] Start: 12-20-2022 End: 12-20-2022 Admission to same day surgery center Dr. Rosa Maria Santacruz Work Phone: [facility]-Endoscopy Start: 12-20-2022 End: 03-03-[address] Rosa Maria Santacruz Work Phone: [facility] Work Phone: Start: 12-20-2022 End: 12-20-2022 Dr. Rosa Maria Santacruz Work Phone: [facility]-Endoscopy Work Phone: Start: 12-19-2022 Non-patient / Non-visit Dr. Crissy Santacruz Work Phone: [facility] Start: 12-19-2022 Dr. Rosa Maria leblanc Work Phone: [facility] Start: 12-18-2022 End: 12-18-[address] Rosa Maria Santacruz Work Phone: [facility] Work Phone: Start: 12-18-2022 End: 12-18-[address] Rosa Maria Santacruz Work Phone: [facility] Start: 12-18-2022 End: 12-18-2022 Dr. [facility] Start: 12-03-2022 End: 12-23-2022 Evaluation and management of inpatient Dr. Rosa Maria [facility] Start: 12-03-2022 End: 12-23-2022 Dr. Rosa Maria [facility] Start: 12-03-2022 Non-patient / Non-visit Dr. Crissy Santacruz Work Phone: [facility] Start: 12-03-2022 Dr. Rosa Maria leblanc Work Phone: [facility] Work Phone: Start: 12-02-2022 Non-patient / Non-visit Dr. Crissy Santacruz Work Phone: [facility] Start: 12-02-2022 Dr. Rosa Maria leblanc Work Phone: [facility] Work Phone: Start: 12-01-2022 Non-patient / Non-visit Dr. Crissy Santacruz Work Phone: [facility] Start: 12-01-2022 Dr. Rosa Maria leblanc Work Phone: [facility] Work Phone: Start: 11-30-2022 Non-patient / Non-visit Dr. Crissy Santacruz Work Phone: [facility] Start: 11-30-2022 Dr. Rosa Maria leblanc Work Phone: [facility] Work Phone: Start: 11-29-2022 Non-patient / Non-visit Dr. Crissy Santacruz Work Phone: [facility] Start: 11-29-2022 Dr. Rosa Maria leblanc Work Phone: [facility] Start: 11-29-2022 Non-patient / Non-visit Dr. Crissy Santacruz Work Phone: [facility] Start: 11-29-2022 End: 12-03-2022 Evaluation and management of inpatient Dr. Rosa Maria [facility]acruz [facility] Start: 11-29-2022 End: 12-03-2022 Dr. Rosa Maria [facility]acruz [facility] Work Phone: Start: 10-17-2022 End: 10-17-[address] Rosa Maria Santacruz Work Phone: [facility] Work Phone: Start: 10-17-2022 End: 10-17-[address] Rosa Maria Santacruz Work Phone: [facility] Start: 10-17-2022 End: 10-17-2022 Dr. Rosa Maria Santacruz Work Phone: [facility] Work Phone: Start: 10-17-2022 End: 10-17-[address] Rosa Maria Santacruz Work Phone: [facility] Start: 10-17-2022 End: 10-17-2022 Dr. Rosa Maria Santacruz Work Phone: [facility] Work Phone: Start: 08-23-2022 End: 08-23-[address] Rosa Maria Santacruz Work Phone: [facility] Work Phone: Start: 08-23-2022 End: 08-23-[address] Rosa Maria Santacruz Work Phone: [facility] Start: 06-20-2022 End: 06-20-[address] Rosa Maria Santacruz Work Phone: [facility] Start: 06-05-2022 End: 06-05-[address] Rosa Maria Santacruz Work Phone: [facility] Start: 05-20-2022 End: 05-20-2022 Emergency department patient visit Dr. Rosa Maria Santacruz Work Phone: [facility] Start: 04-16-2022 End: 04-16-[address] Rosa Maria Santacruz Work Phone: [facility] Work Phone: Start: 04-16-2022 End: 04-16-[address] Rosa [facility] Start: 04-03-2022 End: 04-03-[address] Rosa Maria Santacruz Work Phone: [facility] Start: 03-27-[address] Rosa Maria faria Work Phone: [facility] Start: 10-02-2020 End: 10-07-2020 Evaluation and management of inpatient Roman Rivas Work Phone: [facility] Comment on above: Hydropneumothorax (P rimary Dx); Parapneumonic effusion; CKD (chronic kidney disease), stage IV (HCC); Macrocytic anemia; MCC (current) use of antibiotics Start: 09-11-2020 End: 09-21-2020 Evaluation and management of inpatient Alessio Robertson Work Phone: [facility] Comment on above: Parapneumonic [...] Ct head/brain w/o contrast material Sergio Sofia [employer] Work Phone: Start: 01-06-2023 Antibody screen ELIDA BORGES Comment on above: Order Comment: Specimen Type: BLOOD SPEC IMEN Ordering Facility: [facility] Address: [address] [place] [address] Performed By: #### T SCR #### [facility] CLIA [id number] [address] [place] [address] OF [facility] Start: 01-04-2023 History of coronary artery bypass grafting S/P CABG (coronary artery bypass graft) Azucena Vo [employer] Work Phone: Start: 01-03-2023 CT cervical spine [...] CT of head without contrast Dr. Rosa Marai gamble Work Phone: Start: 12-20-[address] [...] Phone: Start: 10-06-2020 [facility] Work Phone: Start: 10-06-2020 Creatinine other source [facility] Gian[facility]ancoita l Work Phone: Start: 10-06-2020 EOSINOPHILS, URINE [facility] Work Phone: Start: 10-06-2020 Albumin serum plasma/whole blood [facility] Work Phone: Start: 10-06-2020 Assay of magnesium Russell Aden Work Phone: Start: 10-06-2020 Assay of phosphorus inorganic [facility] Work Phone: Start: 10-06-2020 Basic [...] Start: 10-04-2020 Radiologic exam chest single view Kassnadra barajas Work Phone: Start: 10-04-2020 Assay of [...] 10-03-2020 Assay of folic acid serum Russell Adne Work Phone: Start: 10-03-2020 Assay of magnesium [...] Culture tubercle/oth acid-fast bacilli any isol [facility] Work Phone: Start: 09-19-2020 Smr prim src fluorescent&/afs bct fngi parasit Kassandra Aziken Work Phone: Start: 09-19-2020 Radiologic exam chest single view Kylah Liz Work Phone: Start: 09-19-2020 Basic metabolic panel calcium total Kylah Liz Work Phone: Start: 09-19-2020 Blood count complete auto&auto difrntl wbc Kylah Liz Work Phone: Start: 09-19-2020 Blood typing serologic abo Gilbert Henyr Work Phone: Start: 09-19-2020 MANUAL DIFFERENTIAL Gilbert [...] Phone: Start: 09-14-2020 Iaad ia histoplasm capsulatum [facility] Work Phone: Start: 09-14-2020 Basic metabolic panel [...] Arellanonan Work Phone: Start: 09-13-2020 C-reactive protein [facility] Marcelo Work Phone: Start: 09-13-2020 Cyanocobalamin vitamin b-12 [facility] Marcelo Work Phone: Start: 09-13-2020 Hemoglobin glycosylated a1c [facility] Marcelo Work Phone: Start: 09-13-2020 Procalcitonin (pct) [facility] Marcelo Work Phone: Start: 09-13-2020 Cytopath fl [...] Author Start: 01-08-2026 DIABETES SCREEN DIABETES SCREEN [facility] Start: 01-08-2026 Diabetes Screening Diabetes Screening [facility] Start: 03-03-2025 [facility] Start: 02-23-2025 Patient discharge [facility] Start: 12-27-2024 Anesthesia intraperitoneal lower abd w/laps nos [facility] Start: 12-27-2024 Laparoscopy surg rpr initial inguinal hernia [facility] Start: 12-27-2024 Patient discharge [facility] Start: 11-18-2024 Iv infusion therapy prophylaxis/dx ea hour [facility] Start: 11-18-2024 Iv infusion therapy/prophylaxis /dx 1st to 1 hr [facility] Start: 11-18-2024 Following clinical pathway protocol [facility] Start: 11-08-2024 [facility] Start: 11-08-2024 [facility] Start: 11-08-2024 [facility] Start: 11-10-2023 [facility] Start: 11-10-2023 [facility] Start: 07-02-2023 Blood chemistry [facility] Start: 07-01-2023 Blood chemistry [facility] Start: 06-30-2023 Blood chemistry [facility] Start: 06-29-2023 Blood chemistry [facility] Start: 06-28-2023 Blood chemistry [facility] Start: 06-27-2023 Blood chemistry [facility] Start: 06-26-2023 Blood chemistry [facility] Start: 06-25-2023 Patient discharge [facility] Start: 06-24-2023 Referral to service [facility] Start: 06-24-2023 Antibody to gastric parietal cell measurement [facility] Start: 06-24-2023 [facility] Start: 06-24-2023 Referral to gastroenterology service [facility] Start: 06-24-2023 Inhalation therapy procedure [facility] Start: 06-23-2023 Referral to gastroenterology service [facility] Start: 06-21-2023 Consultation [facility] Start: 06-21-2023 End: 06-21-2023 Speech therapy assessment [facility] Start: 06-20-2023 Wound care [facility] Start: 06-20-2023 Following clinical pathway protocol [facility] Start: 06-20-2023 Consultation for treatment [facility] Start: 06-20-2023 Referral to fruit grader [facility] Start: 06-20-2023 Referral to bank guard [facility] Start: 06-20-2023 Ambulation without limitation [facility] Start: 06-20-2023 Assessment of risk of venous thromboembolism [facility] Start: 06-20-2023 Documentation procedure [facility] Start: 06-20-2023 Insertion of catheter into peripheral vein [facility] Start: 06-20-2023 Measuring intake and output [facility] Start: 06-20-2023 Oxygen therapy [facility] Start: 06-20-2023 Providing care according to standard [facility] Start: 06-20-2023 Referral to occupational therapist [facility] Start: 06-20-2023 Referral to service [facility] Start: 06-20-2023 Plain chest X-ray [facility] Start: 06-20-2023 XR Chest PA and Lateral [facility] Start: 06-20-2023 Hospital admission, emergency, from emergency room, medical nature [facility] Start: 06-20-2023 Admission procedure [facility] Start: 06-20-2023 End: 06-20-2023 [facility] Start: 06-20-2023 [facility] Start: 06-04-2023 Microbial culture, routine Wound Culture [facility] Start: 02-28-2023 Covid-19 Vaccine () Covid-19 Vaccine () [facility] Start: 02-28-2023 Influenza vaccination [facility] Start: 01-01-2023 Blood chemistry [facility] Start: 12-25-2022 Blood chemistry [facility] Start: 12-24-2022 Microbial culture, routine Wound Culture [facility] Start: 12-24-2022 [facility] Start: 12-23-2022 Development of care plan [facility] Start: 12-23-2022 Patient discharge [facility] Start: 12-22-2022 Following clinical pathway protocol [facility] Start: 12-20-2022 Egd insert guide wire dilator passage esophagus [facility] Start: 12-20-2022 Egd transoral biopsy single/multiple [facility] Start: 12-20-2022 Egd transoral control bleeding any method [facility] Start: 12-20-2022 Patient discharge [facility] Start: 12-19-2022 Catheterization of vein [facility] Start: 12-18-2022 Administration of blood product [facility] Start: 12-18-2022 [facility] Start: 12-17-2022 Referral to gastroenterology service [facility] Start: 12-17-2022 Administration of blood product [facility] Start: 12-11-2022 Wound care [facility] Start: 12-10-2022 Consultation for pain [facility] Start: 12-10-2022 Consultation for treatment [facility] Start: 12-06-2022 [facility] Start: 12-06-2022 [facility] Start: 12-06-2022 Application of ice collar, cap or bag [facility] Start: 12-05-2022 [facility] Start: 12-05-2022 Verification routine [facility] Start: 12-05-2022 [facility] Start: 12-04-2022 Development of care plan [facility] Start: 12-04-2022 Following clinical pathway protocol [facility] Start: 12-04-2022 Developing a treatment plan [facility] Start: 12-04-2022 [facility] Start: 12-03-2022 Referral to bank guard [facility] Start: 12-03-2022 Patient referral to [facility] Start: 12-03-2022 Admission procedure [facility] Start: 12-03-2022 Measuring intake and output [facility] Start: 12-03-2022 Patient referral to dietitian [facility] Start: 12-03-2022 Referral to occupational therapist [facility] Start: 12-03-2022 Referral to service [facility] Start: 12-03-2022 Vital signs measurements [facility] Start: 12-03-2022 [facility] Start: 12-03-2022 Patient discharge [facility] Start: 12-02-2022 Wound care [facility] Start: 11-30-2022 [facility] Start: 11-30-2022 Referral to bank guard [facility] Start: 11-29-2022 Blood chemistry [facility] Start: 11-29-2022 Thyroid stimulating hormone measurement [facility] Start: 11-29-2022 Vitamin B12 measurement [facility] Start: 11-29-2022 Following clinical pathway protocol [facility] Start: 11-29-2022 Application of intermittent pneumatic compression device [facility] Start: 11-29-2022 Assessment of risk of venous thromboembolism [facility] Start: 11-29-2022 Bacteria identified in Sputum by Culture [facility] Start: 11-29-2022 Consultation for treatment [facility] Start: 11-29-2022 Documentation procedure [facility] Start: 11-29-2022 Insertion of catheter into peripheral vein [facility] Start: 11-29-2022 Legionella pneumophila Ag [Presence] in Urine [facility] Start: 11-29-2022 Measuring intake and output [facility] Start: 11-29-2022 Patient referral to dietitian [facility] Start: 11-29-2022 Physiotherapy of chest [facility] Start: 11-29-2022 Providing care according to standard [facility] Start: 11-29-2022 Provision of activity privileges [facility] Start: 11-29-2022 Referral to occupational therapist [facility] Start: 11-29-2022 Referral to service [facility] Start: 11-29-2022 Streptococcus pneumoniae antigen assay [facility] Start: 11-29-2022 [facility] Start: 11-29-2022 Verification routine [facility] Start: 11-29-2022 Admission procedure [facility] Start: 11-29-2022 End: 11-29-2022 Blood culture [facility] Start: 11-29-2022 [facility] Start: 06-30-2022 ADVANCE DIRECTIVE DISCUSSION ADVANCE DIRECTIVE DISCUSSION [facility] Start: 06-30-2022 DEPRESSION ASSESSMENT DEPRESSION ASSESSMENT [facility] Start: 06-05-2022 Evaluation of diagnostic study results [facility] Start: 10-07-2021 Creatinine measurement Creatinine monitoring [facility] [...] VACCINE (4 - Booster for Moderna series) [facility] Start: 02-28-2021 Influenza vaccination Flu vaccine (Season Ended) [facility] Work Phone: Start: 10-09-2020 End: 10-07-2021 Basic metabolic 2000 panel Basic Metabolic Panel Lab Routine CKD (chronic kidney disease), stage IV (HCC) 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 Expected: 10/09/2020, Expires: [...] RSV Vaccine (1 - 1-dose 60+ series) [facility] Start: 1991 Shingles Vaccine (1 of 2) Shingles Vaccine (1 of 2) [facility] Work Phone: Start: 1960 DTaP/Tdap/Td vaccine (1 - Tdap) DTaP/Tdap/Td vaccine (1 - Tdap) [facility] Work Phone: Start: 1960 SHINGRIX VACCINE (1 of 2) SHINGRIX VACCINE (1 of 2) [facility] Start: 1960 Urine microalbumin profile [facility] Start: 1959 Hepatitis B surface antibody level LDL CHOLESTEROL [facility] Start: 1959 SPIROMETRY SPIROMETRY [facility] Start: 1951 Lipid panel Lipid screen [facility] Work Phone: Start: 1947 PNEUMOCOCCAL: 65+ (1 - PCV) PNEUMOCOCCAL: 65+ (1 - PCV) [facility] Start: 1941 Hepatitis C screening Hepatitis C [...] Work Phone: Anion gap measurement [facility]ion gap [facility] Bacteria identified in Blood by Culture Blood Culture [facility] End: 09-13-2020 Basic metabolic 2000 panel Basic [...] starting 2020, 3 completed Bilirubin measurement, urine [facility] End: 10-09-2020 Brain Natriuretic Peptide Brain Natriuretic Peptide Lab Routine Every Third Day for 3 Occurrences starting 10/03/2020 until 10/09/2020, 1 completed [facility] Work Phone: Comment on above: Every Third Day for 3 Occurrences starti ng 10/03/2020 until 10/09/2020, 1 completed Brain Natriuretic Peptide Brain Natriuretic Peptide Lab Routine 10/04/2020 2:11 AM EDT [facility] Work Phone: BUN/Creatinine ratio [facility] BUN/Creatinine ratio [facility] BUN/Creatinine ratio [facility] C reactive protein [Mass/volume] in Serum or Plasma [facility] Calcium [Mass/volume ] in Serum or Plasma [facility] Calcium [Mass/volume ] in Serum or Plasma [facility] Calcium [Mass/volume ] in Serum or Plasma [facility] Carbon dioxide, tota l [Moles/volume] in Serum or Plasma [facility] Carbon dioxide, tota l [Moles/volume] in Serum or Plasma [facility] Carbon dioxide, tota l [Moles/volume] in Serum or Plasma [facility] Carcinoembryonic Ag [Mass/volume] in Serum or Plasma [facility] Cardiac event recording [facility] CBC Auto Differential CBC Auto D ifferential Lab Routine Daily until discontinued starting 09/19/2020, 3 completed [facility] Work Phone: Comment on above: Daily until discontinued starting 2020, 3 completed CBC W Auto Different ial panel - Blood [facility] CBC W Auto Different ial panel - Blood [facility] CBC W Auto Different ial panel - Blood [facility] CBC W Auto Different ial panel - Blood [facility] Chloride [Moles/volu me] in Serum or Plasma [facility] Chloride [Moles/volu me] in Serum or Plasma [facility] Chloride [Moles/volu me] in Serum or Plasma [facility] Cobalamin (Vitamin B 12) [Mass/volume] in Serum or Plasma [facility] Comprehensive metabo lic 2000 panel - Serum or Plasma [facility] Creatinine [Moles/vo lume] in Serum or Plasma [facility] Creatinine [Moles/vo lume] in Serum or Plasma [facility] Creatinine [Moles/vo lume] in Serum or Plasma [facility] Culture with Smear, Acid Fast Bacillius Culture with Smear, Acid Fast Bacillius Microbiology Routine 09/19/2020 9:10 AM EDT [facility] Work Phone: Culture, Anaerobic a nd Aerobic Culture, Anaerobic and Aerobic Microbiology STAT 09/19/2020 9:10 AM EDT [facility] Work Phone: Culture, Fungus Culture, Fungus Microbiology Routine 09/19/2020 9:10 AM EDT [facility] Work Phone: Electrocardiographic procedure [facility] Erythrocyte sediment ation rate [facility] Ferritin [Mass/volum e] in Serum or Plasma [facility] Ferritin [Mass/volum e] in Serum or Plasma [facility] Ferritin [Mass/volum e] in Serum or Plasma [facility] Ferritin [Mass/volum e] in Serum or Plasma [facility] Ferritin [Mass/volum e] in Serum or Plasma [facility] Folate [Mass/volume] in Serum or Plasma [facility] Folate [Moles/volume ] in Serum or Plasma [facility] Fungus identified in Unspecified specimen by Culture [facility] Gastrin [Mass/volume ] in Serum or Plasma [facility] Gliadin peptide IgA Ab [Units/volume] in Serum [facility] Gliadin peptide IgG Ab [Units/volume] in Serum [facility] Glucose [Mass/volume ] in Serum or Plasma [facility] Glucose [Mass/volume ] in Serum or Plasma [facility] Glucose [Mass/volume ] in Serum or Plasma [facility] Hematocrit [Volume F raction] of Blood [facility] Hematocrit [Volume F raction] of Blood [facility] Hematocrit [Volume F raction] of Blood [facility] Hemoglobin [Mass/vol ume] in Blood [facility] Hemoglobin [Mass/vol ume] in Blood [facility] Hemoglobin [Mass/vol ume] in Blood [facility] Hemoglobin [Presence ] in Urine [facility] Imaging of liver [facility] Iron [Mass/mass] in Unspecified specimen [facility] Iron and Iron bindin g capacity panel - Serum or Plasma [facility] Iron and Iron bindin g capacity panel - Serum or Plasma [facility] Iron and Iron bindin g capacity panel - Serum or Plasma [facility] Iron and Iron bindin g capacity panel - Serum or Plasma [facility] Iron and Iron bindin g capacity panel - Serum or Plasma [facility] Iron saturation [Mas s Fraction] in Serum or Plasma [facility] Lactate dehydrogenas e measurement [facility] Lactate dehydrogenas e measurement [facility] [place] Lactate dehydrogenas e measurement [facility] Lactate dehydrogenas e measurement [facility] Leukocytes [#/volume ] in Blood [facility] Leukocytes [#/volume ] in Blood [facility] Leukocytes [#/volume ] in Blood [facility] Magnesium measurement [facility] Mean corpuscular hem oglobin concentration determination [facility] Mean corpuscular hem oglobin concentration determination [facility] Mean corpuscular hem oglobin concentration determination [facility] Mean corpuscular hem oglobin determination [facility] Mean corpuscular hem oglobin determination [facility] Mean corpuscular hem oglobin determination [facility] Measurement of immunoglobulin A in serum specimen [facility] Measurement of keton es in urine using dipstick [facility] Measurement of renal function [facility] Measurement of renal function [facility] Measurement of renal function [facility] Microscopic urinalysis [facility] Nebulizer therapy [facility] Work Phone: Comment on above: 0600, 1000, 1400, 1800, 2200 until disco ntinued starting 09/11/2020 4X Daily until disco ntinued starting 09/19/2020 Neutrophil count [facility] Neutrophil count [facility] Neutrophil count [facility] Neutrophil percent differential count [facility] Neutrophil percent differential count [facility] Neutrophil percent differential count [facility] Oxygen therapy [[facility] Data Set] [facility] Work Phone: Comment on above: Daily until discontinued starting 2020 Daily until disconti nued starting 10/02/2020 Daily until disconti nued starting 10/04/2020 Daily until disconti nued starting 10/05/2020 Patient Education [facility] Work Phone: Patient referral [facility] Work Phone: pH of Urine [facility] Platelets [#/volume] in Blood [facility] Platelets [#/volume] in Blood [facility] Platelets [#/volume] in Blood [facility] Potassium [Moles/vol ume] in Serum or Plasma [facility] Potassium [Moles/vol ume] in Serum or Plasma [facility] Potassium [Moles/vol ume] in Serum or Plasma [facility] Red blood cell count [facility] Red blood cell count [facility] Red blood cell count [facility] Red cell distributio n width determination [facility] Red cell distributio n width determination [facility] Red cell distributio n width determination [facility] Serum inorganic phos phate measurement [facility] Sodium [Moles/volume ] in Serum or Plasma [facility] Sodium [Moles/volume ] in Serum or Plasma [facility] Sodium [Moles/volume ] in Serum or Plasma [facility] Specific gravity of Urine [facility] Tissue transglutamin ase IgA Ab [Units/volume] in Serum [facility] Tissue transglutamin ase IgG Ab [Units/volume] in Serum [facility] Urea nitrogen [Mass/ volume] in Serum or Plasma [facility] Urea nitrogen [Mass/ volume] in Serum or Plasma [facility] Urea nitrogen [Mass/ volume] in Serum or Plasma [facility] Urinalysis, blood, qualitative [facility] Urine dipstick for glucose [facility] Urine dipstick for l eukocyte esterase [facility] Urine dipstick for nitrite [facility] Urine dipstick for protein [facility] Urine examination [facility] Urine microscopy: ep ithelial cells [facility] Urine Microscopy: wh ite cells [facility] Urobilinogen [Presen ce] in Urine [facility] Vitamin B12 measurement [facility] XR CHEST PORTABLE XR CHEST FRANCHESCA BLE Imaging Routine Daily until discontinued starting 09/13/2020, 9 completed [facility] Work Phone: Comment on above: Daily until discontinued starting 2020, 9 completed [facility] Immunizations Immunization Date Immunization Notes Care Provider Fa cility 06-20-2021 Covid (Moderna) Dr. Rosa Maria gamble Work Phone: [facility] 09-25-2020 Covid (Moderna) Dr. Rosa Maria Small ifwerner Work Phone: [facility] 08-28-2020 Covid (Moderna) Dr. Rosa Maria Small ifwerner Work Phone: [facility] 06-20-2015 pneumococcal conjuga te vaccine, [address] Rosa Maria Santacruz Work Phone: [facility] 09-30-2006 pneumococcal polysaccharide vaccine, [address] Rosa Maria Santacruz Work Phone: [facility] Payers Date Payer Category Payer Self-pay [id number] 2015 Medicare [id number] 2015 Unknown [id number] 2015 Unknown [facility] MEDICARE SUPPLEMENT [id number] 2015-Present [phone] [address] [facility] [place] [address] [facility] [id number]. [id number] 2006 Medicare [id number]. [id number] 2006 Medicare MEDICARE MEDICAR E A AND B [id number] 2006-Present [phone] [address] [address] [place] [address] Medicare [id number]. [id number] 2006 Medicare [id number] 1941 Unknown [id number] 2.16.840.1.964984.3.579.2.62 7 Unknown [id number] 2.16.840.1.155299.3.579.2.46 2 Unknown [id number] 2.16.840.1.392494.3.579.2.46 2 Unknown [id number] 2.16.840.1.720473.3.579.2.46 2 Unknown [id number] 2.16.840.1.350216.3.579.2.46 2 Unknown [id number] 2.16.840.1.523093.3.579.2.46 2 Unknown [id number] 2.16.840.1.522781.3.579.2.46 2 Unknown [id number] 2.16.840.1.896814.3.579.2.46 2 Unknown [id number] 2.16.840.1.790147.3.579.2.46 2 Unknown [id number] 2.16.840.1.399840.3.579.2.46 2 Unknown [id number] 2.16.840.1.485143.3.579.2.46 2 Unknown [id number] 2.16.840.1.939290.3.579.2.46 2 Unknown [id number] 2.16.840.1.726812.3.579.2.46 2 Unknown [id number] 2.16.840.1.266773.3.579.2.46 2 Unknown [id number] 2.16.840.1.923166.3.579.2.46 2 Unknown [id number] 2.16.840.1.297380.3.579.2.46 2 Unknown [id number] 2.16.840.1.384004.3.579.2.46 2 Unknown [id number] 2.16.840.1.901318.3.579.2.46 2 Unknown [id number] 2.16.840.1.064672.3.579.2.46 2 Unknown [id number] 2.16.840.1.326589.3.579.2.46 2 Unknown [id number] 2.16.840.1.255986.3.579.2.46 2 Unknown [id number] 2.16.840.1.073228.3.579.2.46 2 Unknown [id number] 2.16.840.1.470250.3.579.2.46 2 Unknown [id number] 2.16.840.1.368506.3.579.2.46 2 Unknown [id number] 2.16.840.1.242650.3.579.2.46 2 Unknown [id number] 2.16.840.1.804757.3.579.2.46 2 Unknown [id number] 2.16.840.1.010924.3.579.2.46 2 Unknown [id number] 2.16.840.1.025370.3.579.2.46 2 Unknown [id number] 2.16.840.1.605308.3.579.2.46 2 Unknown [id number] 2.16.840.1.387490.3.579.2.46 2 Unknown [id number] 2.16.840.1.551668.3.579.2.46 2 Unknown [id number] 2.16.840.1.023691.3.579.2.46 2 Unknown [id number] 2.16.840.1.383233.3.579.2.46 2 Unknown [id number] 2.16.840.1.899833.3.579.2.46 2 Social History Date Type Detail Facility Start: 09-20-2020 End: 02-23-2025 Tobacco smoking status NHIS Former smoker [facility] Work Phone: Start: 09-20-2020 End: 01-04-2023 Alcohol intake Current drinker of alcohol (finding) [facility] Work Phone: Start: 09-13-2020 History SDOH Alcohol Frequency 5 [facility] Work Phone: Start: 09-13-2020 History SDOH Alcohol Std Drinks 2 [facility] Work Phone: Start: 09-12-2020 History SDOH Alcohol Binge 99 [facility] Work Phone: Start: 09-13-2020 Alcohol Comment 4 shots of bourbon per day [facility] Work Phone: Start: 1940 Sex Assigned At Not on file [facility] Work Phone: Exposure to SARS-CoV -2 (event) Not sure [facility] Work Phone: Start: 12-03-2021 End: 11-10-2023 Tobacco smoking status NHIS Unknown if ever smoked [facility] Start: 10-02-2020 None [facility] Start: 02-16-2016 Spouse/ Significant Other [facility] Start: 11-02-2020 Non-smoker [facility] Start: 1940 Sex Assigned At Male [facility] History of tobacco use Current smoker [facility] Work Phone: Start: 01-04-2023 End: 01-22-2023 [facility] Start: 01-04-2023 End: 07-26-2023 Tobacco use panel [facility] How hard is it for y ou to pay for the very basics like food, housing, medical care, and heating Not very hard [facility] (I/We) worried daniellearnaldo er (my/our) food would run out before (I/we) got money to buy more. Never true [facility] In the past 12 month s, has lack of transportation kept you from medical appointments or from getting medications? No [facility] In the past 12 month s, was there a time when you were not able to pay the mortgage or rent on time? No [facility] Start: 09-20-2024 End: 10-11-2024 Sex Male (finding) [facility] Medical Equipment Procedure Code Equipment Code Equipment Origin al Text Equipment Identifier Dates MESH,PRO PERFORMANCE IMPROVEMENT CONSULTANT [id number] FDA Start: 07-26-2021 MESH,PRO PERFORMANCE IMPROVEMENT CONSULTANT [id number] FDA Start: 07-26-2021 MESH,PRO PERFORMANCE IMPROVEMENT CONSULTANT [id number] FDA Start: 07-26-2021 MESH,PRO PERFORMANCE IMPROVEMENT CONSULTANT [id number] FDA Start: 07-26-2021 MESH,PRO PERFORMANCE IMPROVEMENT CONSULTANT [id number] FDA Start: 07-26-2021 MESH,PRO PERFORMANCE IMPROVEMENT CONSULTANT [id number] FDA Start: 07-26-2021 MESH,PRO PERFORMANCE IMPROVEMENT CONSULTANT [id number] FDA Start: 07-26-2021 MESH,PRO PERFORMANCE IMPROVEMENT CONSULTANT [id number] FDA Start: 07-26-2021 MESH,PRO PERFORMANCE IMPROVEMENT CONSULTANT [id number] FDA Start: 07-26-2021 FDA Start: 07-26-2021 Nail Tfn-Advance d 10mm 130d Short Gold Green Iverson Ti-15mo 170mm - [id number] Start: 01-04-2023 Screw 5mm 4.3mm T25 Full Thread Titanium 34mm Bone Lock Self Tap Blunt Tip - [id number] Start: 01-04-2023 FDA Start: 07-26-2021 FDA Start: 07-26-2021 FDA Start: 07-26-2021 FDA Start: 07-26-2021 FDA Start: 07-26-2021 FDA Start: 07-26-2021 MESH,PRO PERFORMANCE IMPROVEMENT CONSULTANT [id number] FDA Start: 07-26-2021 FDA Start: 07-26-2021 FDA Start: 07-26-2021 FDA Start: 07-26-2021 FDA Start: 07-26-2021 FDA Start: 07-26-2021 FDA Start: 07-26-2021 FDA Start: 07-26-2021 FDA Start: 07-26-2021 MESH,PRO PERFORMANCE IMPROVEMENT CONSULTANT [id number] FDA Start: 07-26-2021 MESH,PRO PERFORMANCE IMPROVEMENT CONSULTANT [id number] FDA Start: 07-26-2021 MESH,PRO PERFORMANCE IMPROVEMENT CONSULTANT [id number] FDA Start: 07-26-2021 MESH,PRO PERFORMANCE IMPROVEMENT CONSULTANT [id number] FDA Start: 07-26-2021 MESH,PRO PERFORMANCE IMPROVEMENT CONSULTANT [id number] FDA Start: 07-26-2021 MESH,PRO PERFORMANCE IMPROVEMENT CONSULTANT [id number] FDA Start: 07-26-2021 MESH,PRO PERFORMANCE IMPROVEMENT CONSULTANT [id number] FDA Start: 07-26-2021 MESH,PRO PERFORMANCE IMPROVEMENT CONSULTANT [id number] FDA Start: 07-26-2021 FDA Start: 07-26-2021 MESH,PRO PERFORMANCE IMPROVEMENT CONSULTANT [id number] FDA Start: 07-26-2021 MESH,PRO PERFORMANCE IMPROVEMENT CONSULTANT [id number] FDA Start: 12-27-2024 MESH,PRO PERFORMANCE IMPROVEMENT CONSULTANT [id number] FDA Start: 07-26-2021 MESH,PRO PERFORMANCE IMPROVEMENT CONSULTANT [id number] FDA Start: 12-27-2024 [id number] FDA Start: 02-23-2025 FDA Start: 07-26-2021 FDA Start: 12-27-2024 Goals Date Patient Goal Desired Activity /State Functional Status Date Assessment Result Facility 12-27-2024 Functional status Ambulates;Bathroom Priv ilege [facility] Work Phone: 06-25-2023 Functional status Chair [facility] Work Phone: 12-23-2022 Functional status Bedrest [facility] Work Phone: 12-22-2022 Functional status With Assist of 2 [facility] Work Phone: 12-21-2022 Functional status Tolerates Activity Well [facility] Work Phone: 12-18-2022 Functional status Chair [facility] Work Phone: 12-03-2022 Functional status Ambulates;Bedside Commo de [facility] Work Phone: Mental Status Date Assessment Result Facility 12-27-2024 Cognitive function Voice/Name [facility] Work Phone: 11-18-2024 Cognitive function Voice/Name [facility] Work Phone: 11-08-2024 Cognitive function Awake;Alert;A ppropriate;Follow s Commands [facility] Work Phone: 11-10-2023 Cognitive function Level Of Cons ciousness Awake;Alert;Appropriate;Follow s Commands [facility] Work Phone: 07-21-2023 Cognitive function Voice/Name [facility] Work Phone: 06-25-2023 Cognitive function Voice/Name [facility] Work Phone: 06-20-2023 Cognitive function Voice/Name [facility] Work Phone: 12-23-2022 Cognitive function Voice/Name [facility] Work Phone: 12-20-2022 Cognitive function Voice/Name [facility] Work Phone: 12-18-2022 Cognitive function Voice/Name [facility] Work Phone: 12-17-2022 Cognitive function Appropriate;Cooperativ e [facility] Work Phone: 12-03-2022 Cognitive function Voice/Name [facility] Work Phone: 05-20-2022 Cognitive function Level Of Cons ciousness Awake;Alert;Appropriate;Follow s Commands [facility] Work Phone: Clinical Notes 09-12-2020 to 05-03-2025 Note Date & Type Note Facility 05-03-2025 Note [facility] 03-03-2025 Progress note Note Date/Time March 03, 2025 12:13pm [facility] [address] OFFICE VISIT Date of Service: 03/03/25 1135 MR#: [id number] Acct: [id number] Name: AMAURY BLANK Rep #: [id number] : 1940 From: Mathieu Mcintyre MD Age/Sex: 84/M Location: [facility] [place] Status: Signed HPI Subjective Date of Service [...] and comes for follow up. Feeling better. 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 Jakob Flower MD ~ [facility] Work Phone: 1(709) 682-616508-27-[address] [facility] Medical Records Department [address] [place] [address] Operative Report 02/23/25 0850 MR#: [id number] Acct: [id number] Name: AMAURY BLANK Rep #:[id number] : 1940 84 From: Singh Amaya MD PCP: Dr. Jakob Flower MD Status:REG [facility] Location: [facility] Operative Report (Standard) Operative Information [...] x 4 balloon. 4. Closure with Mynx weaver hand: No Type of Anesthesia: IV Sedation Procedure Start Time: 07:45 Procedure Stop Time: 08:30 Select all DRAINS/GRAFTS/IMPLANTS that apply: None Estimated Blood Loss: Minimal Specimen collected: No Description of surgery: Patient brought to the Portfolio Lead. Underwent appropriate consent. Underwent sedation. Is prepped and draped in a sterile fashion. We did ultrasound accessretrograde right common femoral artery. Give 5000 units of heparin. Put on a 6French sheath. Using a Lehighton catheter and then a Tadeo 4 selected [...] Amaya MD; Dr. Jakob Flower MD~ Signed [facility]06-30-2025 Consult note Author Gagandeep Rob [facility] Note Date/Time December 27, 2024 10:[address] [facility] Medical Records Department [address] [place] [address] Pre-Anesthesia Evaluation 12/27/24 1009 MR#: [id number] Acct: [id number] Name: AMAURY BLANK Rep #:[id number] : 1940 84 From: Gagandeep Rob MD PCP: Dr. 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 History - electrical maintenance engineer Hx Hospitalization No 12/14/24 09:04 Any Problems [...] sips of water?: Yes PONV PONV - electrical maintenance engineer: PONV - electrical maintenance engineer Female No 12/14/24 09:04 HX of Motion [...] 12/27/24 09:29 Respiratory Assessment Respiratory Assessment - electrical maintenance engineer: Respiratory Tract Infection Hx - electrical maintenance engineer Hx Respiratory Tract Infection No 12/14/24 09:04 STOP Sleep Apnea STOP Sleep Apnea - electrical maintenance engineer: STOP Sleep Apnea - electrical maintenance engineer Hx Hypertension No 12/14/24 09:04 Hx Sleep [...] Tobacco Use History Tobacco Use History - electrical maintenance engineer: Tobacco Use History - electrical maintenance engineer Tobacco Use Non-smoker 11/02/20 18:32 Smoking Status Former smoker 12/14/24 09:04 Hx Tobacco Use No 12/14/24 09:04 Years Smoking Packs Smoked per Day Smoking Cessation Date was No - quit smoking greater 12/14/24 09:04 within the last 15 years than 15 years ago Hx Smoking Cessation Date 10/28/00 12/14/24 09:04 Hx Smoking Cessation Yes 12/14/24 09:04 Counseling Hematologic Medial History Hematologic Hx - electrical maintenance engineer: Hematologic 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 Hx of Blood Transfusion Yes 12/14/24 09:04 [...] confused, unrespo /Reproduction History /Reproductive History - electrical maintenance engineer: /Reproductive Hx- electrical maintenance engineer Hx Now No 12/14/24 09:04 Gestational Age [...] Upper GI bleed Atherosclerotic heart disease of [place] coronary artery without angina pectoris Premature atrial contractions Atrial fibrillation and flutter MCC (current) use 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 Hematemesis/vomiting blood Upper [...] MD Cosigner Signature: Date CC: ~ Signed [facility] Work Phone: 1(122) 441-433706-30-2025 History and physical note Author Aurelia Umaña [facility] Note Date/Time December 27, 2024 1:40 pm [facility] Medical Records Department [address] [place] [address] History & Physical Exam 12/27/24 1011 MR#: [id number] Acct: [id number] Name: CHUCKIEAMAURY SHARMAMOND Rep #:[id number] : 1940 84 From: Aurelia chan MD PCP: Dr. Jakob Flower MD Status:[facility] Location: [place] [address] History and Physical Date of Admission: 12/27/24 [...] Upper GI bleed Atherosclerotic heart disease of [place] coronary artery without angina pectoris Premature atrial contractions Atrial fibrillation and flutter MCC (current) use 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 Hematemesis/vomiting blood Upper [...] placement with the patient in detail. Aurelia Umñaa MD Pager: [facility] [address] [place] [address], [address] [place] [address] Office: I have examined the patient and the H&P has been reviewed. There are no clinicalchanges since date of exam. 12/27/24 1011 <Electronically signed by Aurelia Umaña MD> Cosigner Signature (if applicable): CC: Dr. Aurelia Umaña MD; Dr. Jakob Flower MD~ Signed [facility] Work Phone: 1(357) 972-249606-30-2025 Procedure [facility] 12-27-2024 [facility]06-19-2025 Hospital Discharge instructionsAmbulatory Orders* 12 Lead EKG [[facility]] Time Frame: 12/16/24, Location: None Selected [facility] Work Phone: 1(148) 399-780205-25-2025 Radiology Diagnostic study note [facility] Imaging Services [address] [place] [address] CTA Abd/Pelvis W/WO Contrast MR#: [id number] Acct: [id number] Name: AMAURY BLANK Rep #: [id number] : 1940 M 84 From: Cheo Perez MD PCP: Dr. Rosa Maria Santacruz MD Status: REG CLI Study:CTA Abd/Pelvis W/WO Contrast Date of Ex am: 11/18/24 Exam# [id number] Ordering Dr: Terese Amaya MD PROCEDURE: CTA [...] IMPRESSION: Atherosclerosis with multifocal stenosis. Reading [facility] CC: Dr. Rosa Maria Santacruz MD; Dr. Singh Amaya MD ~ Regional Transfer Liaison: Signed [facility]05-12-2025 Discharge summary [facility] Medical Records Department [address] [facility] [place] [address] Emergency Department Summary 11/08/24 MR#: [id number] Acct: [id number] Name: AMAURY BLANK Rep #:[id number] : 1940 84 From: Frederick Roberts MD PCP: Dr. Rosa Maria Santacruz MD Status:REG ER Location: ED HPI History of Present Illness Chief Complaint: Abn Labs Informant: patient Narrative Narrative: 84-year-old male was at his instrument tech today for routine visit, he sees him for anemia of chronickidney disease. His potassium was elevated when his labs came back so he was directed to come to the ER. Patient states he is asymptomatic. He has been urinating without difficulty. He does not see ne phrology. [facility] Medical History Multiple excoriations Anemia [...] Upper GI bleed Atherosclerotic heart disease of [place] coronary artery without angina pectoris Premature atrial contractions Atrial fibrillation and flutter MCC (current) use 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 Hematemesis/vomiting blood Upper [...] (Auto) 67.9 Lymph % (Auto) 16.3 L [place] % (Auto) 10.1 H Eos % (Auto) [...] - As soon as possible Print Language: British Disposition Disposition: Home, Self Care What to do if you have Problems For any increased pain, shortness of breath, bleeding, nausea or vomiting, chestpain, or any unexpected problems, contact your Primary Care Provider. Call [facility] ([phone]) or report tothe closest Emergency Room. Call 911 if necessary. 11/08/242204 Cosigner Signature (if applicable): CC: Dr. Rosa Maria Santacruz MD; Dr. Mathieu Mcintyre MD ~ Signed [facility]05-12-2025 Evaluation note* Diagnosis Onset Date Resolution Status Admit Date Iron deficiency anemia acute 2024 12:51pm Anemia chronic November 08, 2024 12:51pm Left inguinal hernia acute December 10, 2024 1:02pm [facility] Work Phone: 1(667) 830-104605-12-2025 Evaluation note* Diagnosis Onset Date Resolution Status Admit Date Anemia chronic November 08, 2024 12:51pm Iron deficiency anemia chronic Ma y 2024 12:51pm Left inguinal hernia acute December 10, 2024 1:02pm Anemia chronic March 03, 2025 10:57am Iron deficiency anemia chronic Se pt2024 10:57am [facility] Work Phone: 1(955) 704-131105-12-2025 Discharge summary Author Frederick Roberts [facility] Note Date/Time November 08, 2024 10:05 pm The [facility] Medical Records Department [address] [place] [address] Emergency Department Summary 11/08/24 MR#: [id number] Acct: [id number] Name: AMAURY BLANK Rep #:[id number] : 1940 84 From: Frederick Roberts MD PCP: Dr. Rosa Maria Santacruz MD Status:REG ER Location: ED HPI History of Present Illness Chief Complaint: Abn Labs Informant: patient Narrative Narrative: 84-year-old male was at his instrument tech today for routine visit, he sees him for anemia of chronic kidney disease. His potassium was elevated when his labs came back so he was directed to come to the ER. Patient states he is asymptomatic. He has been urinating without difficulty. He does not see nephrology. [facility] Medical History Multiple excoriations Anemia [...] Upper GI bleed Atherosclerotic heart disease of [place] coronary artery without angina pectoris Premature atrial contractions Atrial fibrillation and flutter MCC (current) use 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 Hematemesis/vomiting blood Upper [...] (Auto) 67.9 Lymph % (Auto) 16.3 L [place] % (Auto) 10.1 H Eos % (Auto) [...] - As soon as possible Print Language: British Disposition Disposition: Home, Self Care What to do if you have Problems For any increased pain, shortness of breath, bleeding, nausea or vomiting, chestpain, or any unexpected problems, contact your Primary Care Provider. Call [facility] ([phone]) or report to the closest Emergency Room. Call 911 if necessary. 11/08/242204 <Electronically signed by Frederick Robetrs MD> Cosigner Signature (if applicable): CC: Dr. Rosa Maria Santacruz MD; Dr. 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, resolv ed October 01, 2024 12:52pm [facility] Work Phone: 1(768) 667-370304-04-2025 Evaluation note* Diagnosis Onset Date Resolution Status [...] 12:51pm Anemia chronic November 08, 2024 12:51pm [facility] Work Phone: 1(456) 541-721604-04-2025 Evaluation note* Diagnosis Onset Date Resolution Status Admit Date Atrial fibrillation acute October 01, 2024 12:52pm Hyperlipidemia acute October 01, 2024 12:52pm Carotid artery stenosis chronic A pril 2024 12:52pm Coronary artery disease chronic A pril 2024 12:52pm Essential hypertension chronic Ap ril 2024 12:52pm 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, [facility] ed October 01, 2024 12:52pm Iron deficiency anemia acute 2024 12:51pm Anemia chronic November 08, 2024 12:51pm Left inguinal hernia acute December 10, 2024 1:02pm [facility] Work Phone: 1([phone]) 240-205105-13-2024 Discharge summary Author Hans Armendariz [facility] November 10, 2023 7:14pm Note Date/Time November 10, 2023 5:27p [facility] Medical Records Department [address] [place] [address] Emergency Department Summary 11/10/23 MR#: [id number] Acct: [id number] Name: AMAURY BLANK Rep #:[id number] : 1940 83 From: Hans Armendariz MD PCP: Dr. Rosa Maria Santacruz MD Status:REG ER Location: ED HPI History of Present Illness Chief Complaint: Abn Labs Narrative Narrative: 83-year-old male past medical history of atrial fibrillation, ulcerative colitisin remission, anemia, and chronic kidney disease presents for abnormal laboratory work. He saw his instrument tech/oncologist Dr. Mcintyre for anemia today. He stated that that was fine, but he received a call that his potassium was high. He denies any symptoms. No chest pain, no shortness of breath, no fatigue. She still does make urine. Who presents because of reported hyperkalemia. 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 Call [facility] ([phone]) or report to the closest Emergency Room. Call 911 if necessary. 11/10/231913 <Electronically signed by Hans Armendariz MD> Cosigner Signature (if applicable): CC: Dr. Rosa Maria Santacruz MD ~ Signed [facility] Work Phone: 1([phone]) 939-262405-13-2024 Hospital Discharge instructions Additional Instructions Have your potassium rechecked in 1 to 2 days by your primary care physician or Dr. Dozier [facility] Work Phone: 1(844) 538-945303-13-2024 Progress note Author Warren Sampson [facility] September 10, 2023 1:53pm Note Date/Time September 10, 2023 1:5 3pm [facility] [address] [place] [address] Progress Note - Wound Care 09/10/23 1351 MR#: [id number] Acct: [id number] Name: AMAURY BLANK Rep #:[id number] : 1940 83 From: Warren Wallace PM [...] Type of service Follow-up Visit Follow-up Visit (Physician/BURN OUT TENDER LACE (Physician/BURN OUT TENDER LACE ) ) Arrival Mode Ambulatory, Ambulatory, Walker [...] patient to be measured and fitted at [place]. Patient did state that he has multiple Tubigrip's and will use those until he needs to go to [place]. He will continue to take the antibiotic as written. He is grateful for his care. It was educated the patient if he has any new issues she is to follow-up with Dr. Sampson in his private office. He was understanding of this. Patient is grateful for his care and will follow-up as needed. 09/10/23 6430 <Electronically signed by Warren Sampson DPDeep> Cosigner Signature (if applicable): CC: ~ Signed [facility] Work Phone: 1(614) 161-826503-06-2024 Progress note Author Warren Sampson [facility] September 03, 2023 1:25pm Note Date/Time September 03, 2023 1:25 pm [facility] [address] [place] [address] Progress Note - Wound Care 09/03/23 1322 MR#: [id number] Acct: [id number] Name: AMAURY BLANK Rep #:[id number] : 1940 83 From: Warren Sampson D [...] Recorded Date Recorded By Document 09/03/23 13:02 [email or web address] 09/03/23 13:09 KW 09/03/23 13:02 WC - Today's Visit Information Type of service Follow-up Visit (Physician/BURN OUT TENDER LACE ) Arrival Mode Ambulatory, Walker Patient Identification [...] Recorded Date Recorded By Document 09/03/23 13:02 [employer] 09/03/23 13:09 KW 09/03/23 13:02 Wound Center [...] Cosigner Signature (if applicable): CC: ~ Signed [facility] Work Phone: 1(711) 571-639402-28-2024 Progress note Author Warren Sampson [facility] August 27, 2023 1:25pm Note Date/Time August 27, 2023 1:25pm [facility] [address] [place] [address] Progress Note - Wound Care 08/27/23 1323 MR#: [id number] Acct: [id number] Name: AMAURY BLANK Rep #:[id number] : 1940 83 From: Warren Wallace PM [...] service Follow-up Visit Follow-up Visit Follow-up Visit (Physician/BURN OUT TENDER LACE (Physician/BURN OUT TENDER LACE (Physician/BURN OUT TENDER LACE ) ) ) Arrival Mode Ambulatory, Ambulatory, [...] Visit Information Type of service Follow-up Visit (Physician/BURN OUT TENDER LACE ) Arrival Mode Ambulatory, Walker Transfer Assistance [...] 13:46 Edit Result 08/20/23 13:41 JF (1) [id number] 08/20/23 16:26 Document 08/27/23 13:12 JF Laptop [...] Date 03/30/28 03/30/28 03/30/28 -Product Lot Number [id number] 002 -Percent Used 100 100 100 -Lot number of Saline Used [id number] -Bleeding Controlled with Pressure Silver Nitrate Pressure [...] Cosigner Signature (if applicable): CC: ~ Signed [facility] Work Phone: 1(449) 227-224102-21-2024 Progress note Author Warren Sampson [facility] August 20, 2023 1:50pm Note Date/Time August 20, 2023 1:50pm [facility] [address] [place] [address] Progress Note - Wound Care 08/20/23 1344 MR#: [id number] Acct: [id number] Name: AMAURY BLANK Rep #:[id number] : 1940 83 From: Warren MARTINEZ PCP: [...] service Follow-up Visit Follow-up Visit Follow-up Visit (Physician/BURN OUT TENDER LACE (Physician/BURN OUT TENDER LACE (Physician/BURN OUT TENDER LACE ) ) ) Arrival Mode Ambulatory, Ambulatory, [...] -Expiration Date 03/30/28 03/30/28 -Product Lot Number [id number] -Percent Used 100 100 -Lot number of Saline Used [id number] -Bleeding Controlled with Pressure Silver Nitrate -Treatment [...] Cosigner Signature (if applicable): CC: ~ Signed [facility] Work Phone: 1(240) 862-591502-14-2024 Progress note Author Warren Sampson [facility] August 13, 2023 1:27pm Note Date/Time August 13, 2023 1:27pm [facility] [address] [place] [address] Progress Note - Wound Care 08/13/23 1325 MR#: [id number] Acct: [id number] Name: AMARUY BLANK Rep #:[id number] : 1940 83 From: Warren Wallace PM [...] Type of service Follow-up Visit Follow-up Visit (Physician/BURN OUT TENDER LACE (Physician/BURN OUT TENDER LACE ) ) Arrival Mode Ambulatory, Ambulatory, Walker [...] Disc -Expiration Date 03/30/28 -Product Lot Number [id number] -Percent Used 100 -Bleeding Controlled with [...] Private Auto Notes: Pt refused Tubigrip to [facility] Today Facility Type Home Health Orders Sent [...] Cosigner Signature (if applicable): CC: ~ Signed [facility] Work Phone: 1(558) 243-767002-07-2024 Progress note Author Warren Sampson [facility] August 06, 2023 3:47pm Note Date/Time August 06, 2023 3 :47pm [facility] [address] [place] [address] Progress Note - Wound Care 08/06/23 1544 MR#: [id number] Acct: [id number] Name: AMAURY BLANK Rep #:[id number] : 1940 83 From: Warren Wallace PM [...] Visit Information Type of service Follow-up Visit (Physician/BURN OUT TENDER LACE ) Arrival Mode Ambulatory, Walker Patient Identification [...] Disc -Expiration Date 03/30/28 -Product Lot Number [id number] -Percent Used 100 -Bleeding Controlled with [...] Cosigner Signature (if applicable): CC: ~ Signed [facility] Work Phone: 1(360) 930-686712-27-2023 Discharge summary Author Priya Sheehan [facility] June 25, 2023 2:39pm Note Date/Time June 25, 2023 2:22pm [facility] Medical Records Department [address] [place] [address] Discharge Summary 06/25/23 1421 MR#: [id number] Acct: [id number] Name: AMAURY BLANK Rep #:[id number] : 1940 82 From: Priya Sheehan MD PCP: Dr. Rosa Maria Santacruz MD Status:ADM IN [facility] Prov[facility] Date of Admission: 06/20/23 Date [...] Method of Notification: Verbal 06/20/23 10:38 Consult: Onc/Wound/info specialist Routine Comment: Reason for Consult:: b/l Leg ulcer chronic 06/21/23 12:33 Consult: Sliver Chopper / Pulmonary Medicine Routine Consulting Provider: Pulmonary Medicine [facility] Reason for Consult: acute hypoxic respiratory failure due to aspiration pneumonia EMERGENT Consult: No Notified: Yes Date Notified: 06/21/23 Time Notified: 12:33 Method of Notification: Text 06/23/23 10:32 Consult: Gastroenterology Routine Consulting Provider: [facility] Reason for Consult: acute on chronic anemia, dark stools EMERGENT Consult: No MD Notified: Yes Date Notified: 06/23/23 Time Notified: 10:32 Method of Notification: Text 06/24/23 07:37 Consult: Gastroenterology Routine Consulting Provider: [facility] Reason for Consult: iron deficiency anemia [...] pneumothorax in August 2020 and was sen [facility] for CT evaluation. Had VATS. [...] 40 on admission and he was given [id number]. He was admitted and managed for sinus [...] would need follow-up with his PCP and fruit grader to determine if aspirin should be resumed. [...] (Auto) 69.7, Lymph % (Auto) 14.1 L, [place] % (Auto) 9.2, Eos % (Auto) 5.8 [...] Lai; Daniel Jimenez; Rufus Bruner; Tierney Menendez BURN OUT TENDER LACE Instructions Patient Instructions: Anemia, Dysphagia Aspiration Tx [...] Recorder Preventi (Urgent) Timeframe: 1 Day Facility: [facility] - Location: Cardiovascular Services Ordered By: Dr. Priya Sheehan Referrals / Follow Up: Rosa Maria Santacruz MD [Primary Care Provider] - 06/27/23 11:20 am Irving Horowitz DO [Med Staff - Active Staff] - Within 2 Weeks Karey Jordan NP, BURN OUT TENDER LACE-C [Non-Staff -Ordering Privileges] - 07/18/23 10:30 am Disposition Disposition (needs filled in before D/C Order can be placed): Home, Self Care Charges/Coding Visit Charges Inpatient E&M: 02338 Disch Hosp >30min 06/25/23 1439 <Electronically signed by Priya Sheehan MD> Cosigner Signature (if applicable): CC: Dr. Rosa Maria Santacruz MD; Dr. Priya Sheehan MD~ Signed [facility] Work Phone: 1(443) 711-899512-27-2023 Discharge summary Author Priya [facility] June 25, 2023 2:21pm Note Date/Time June 25, 2023 2:20pm [facility] Medical Records Department [address] [place] [address] Instructions for Home/Discharge Instructions 06/25/23 1419 MR#: [id number] Acct: [id number] Name: AMAURY BLANK Rep #:[id number] : 1940 82 From: Priya Sheehan MD [...] Lai; Daniel Jimenez; Rufus Bruner; Tierney Menendez BURN OUT TENDER LACE Instructions Patient Instructions: Anemia, Dysphagia Aspiration Tx [...] Recorder Preventi (Urgent) Timeframe: 1 Day Facility: [facility] - Location: Cardiovascular Services Ordered By: Dr. [...] MD; Dr. Rufus Bruner MD ~ Signed [facility] Work Phone: 1(543) 122-664412-27-2023 Progress note Author Robby Lai [facility] June 25, 2023 1:58pm Note Date/Time June 25, 2023 12:56pm [facility] Medical Records Department [address] [place] [address] Progress Note - Sliver Chopper 06/25/23 1255 MR#: [id number] Acct: [id number] Name: AMAURY BLANK Rep #:[id number] : 1940 82 From: Robby Lai DO PCP: Dr. Rosa Maria Santacruz MD Status:ADM IN Location: [place] [address] Assessment & Plan Assessment/Plan (1) Acute respiratory [...] is DNR/DNI. This note was generated with [employer]ation software. It may contain incorrectwords, spelling, and [...] (Auto) 69.7, Lymph % (Auto) 14.1 L, [place] % (Auto) 9.2, Eos % (Auto) 5.8 [...] affect normal Charges/Coding Visit Charges Inpatient E&M: 52101 Subs Hosp L2 06/25/23 1377 <Electronically signed by Robby Lai DO> Cosigner Signature (if applicable): CC: ~ Signed [facility] Work Phone: 1(681) 841-688412-27-2023 Progress note Author Irving Friend [facility] June 25, 2023 5:08pm Note Date/Time June 25, 2023 5:07pm [facility] Medical Records Department [address] [place] [address] Progress Note - GI 06/25/23 1100 MR#: [id number] Acct: [id number] Name: AMAURY BLANK Rep #:[id number] : 1940 82 From: Irving Horowitz DO PCP: Dr. Rosa Maria Santacruz MD Status:ADM IN Location: [place] [address] Subjective Subjective Patient underwent an upper endoscopy [...] (Auto) 69.7, Lymph % (Auto) 14.1 L, [place] % (Auto) 9.2, Eos % (Auto) 5.8 [...] 2 months Charges/Coding Visit Charges Inpatient E&M: 79365 Subs Hosp L3 06/25/23 1708 <Electronically signed by Irving Horowitz DO> Cosigner Signature (if applicable): CC: ~ Signed [facility] Work Phone: 1([phone]) 187-494012-26-2023 Progress note Author William Dawson [facility] June 24, 2023 3:28pm Note Date/Time June 24, 2023 10:05am [facility] Medical Records Department [facility] [place] [address] [place] [address] Progress Note - Sliver Chopper 12/26/23 1002 MR#: [id number] Acct: [id number] Name: AMAURY BLANK Rep #:[id number] : 1940 82 From: William Dawson MD PCP: Dr. Rosa Maria Santacruz MD Status:ADM IN Location: [place] [address] Assessment & Plan Assessment/Plan (1) Acute respiratory [...] 73.5 H, Lymph % (Auto) 11.9 L, [place] % (Auto) 10.3 H, Eos % (Auto) [...] Clarity Clear, Urine pH 7.0, Ur Specific [place] 1.010, Urine Protein Negative, Urine Glucose (UA) [...] Appearance: appropriate Charges/Coding Visit Charges Inpatient E&M: 91696 Subs Hosp L2 06/24/23 1528 <Electronically signed by William Dawson MD> Cosigner Signature (if applicable): CC: ~ Signed [facility] Work Phone: 1(343) 312-837112-26-2023 Progress note Author Lakshmi Carpenter [facility] June 24, 2023 3:26pm Note Date/Time June 24, 2023 10:17am [facility] Medical Records Department [address] [place] [address] Progress Note - Cardiology 06/24/23 1016 MR#: [id number] Acct: [id number] Name: AMAURY BLANK Rep #:[id number] : 1940 82 From: Lakshmi Carpenter MD PCP: Dr. Rosa Maria Santacruz MD Status:ADM IN Location: [place] [address] <Statement entered by Lakshmi Carpenter MD - [...] 73.5 H, Lymph % (Auto) 11.9 L, [place] % (Auto) 10.3 H, Eos % (Auto) [...] Clarity Clear, Urine pH 7.0, Ur Specific [place] 1.010, Urine Protein Negative, Urine Glucose (UA) [...] 73.5 H, Lymph % (Auto) 11.9 L, [place] % (Auto) 10.3 H, Eos % (Auto) [...] Clarity Clear, Urine pH 7.0, Ur Specific [place] 1.010, Urine Protein Negative, Urine Glucose (UA) [...] (3) Hyperlipidemia: (4) Atherosclerotic heart disease of [place] coronary artery without angina pectoris: QUALIFIERS: [place] vs. transplanted heart: [place] heart QualifiedCode(s): I25.10 - Atherosclerotic heart disease of [place] coronary artery without angina pectoris (5) Subclavian [...] on OP. Charges/Coding Visit Charges Inpatient E&M: 64435 Subs Hosp L2 06/24/23 1526 <Electronically signed by Lakshmi Carpenter MD> Cosigner Signature (if applicable): 06/24/23 1031 <Electronically signed by Teresa ARITA PA> CC: ~ Signed [facility] Work Phone: 1(880) 506-948412-26-2023 Progress note Author [facility] June 24, 2023 2:51pm Note Date/Time June 24, 2023 9:[address] [place] [address] [facility] System Medical Records Department [address] [place] [address] Progress Note 06/24/23 0941 MR#: [id number] Acct: [id number] Name: AMAURY BLANK Rep #:[id number] : 1940 82 From: Priya Sheehan MD PCP: Dr. Rosa Maria Santacruz MD Status:ADM IN Location: [place] [address] Subjective Subjective Patient seen and examined. He [...] 73.5 H, Lymph % (Auto) 11.9 L, [place] % (Auto) 10.3 H, Eos % (Auto) [...] Clarity Clear, Urine pH 7.0, Ur Specific [place] 1.010, Urine Protein Negative, Urine Glucose (UA) [...] pneumothorax in August 2020 and was sen [facility] for CT evaluation. Had VATS. DVT prophylaxis; SCDs Charges/Coding Visit Charges Inpatient E&M: 19297 Subs Hosp L2 06/24/23 1451 <Electronically signed by Priya Sheehan MD> Priya Sheehan MD Cosigner Signature (if applicable): CC: ~ Signed [facility] Work Phone: 1([phone]) 755-839812-26-2023 Consult note Author Irving Friend [facility] June 24, 2023 11:41am Note Date/Time June 24, 2023 11:32am [facility] Medical Records Department [address] [place] [address] Consultation - GI 06/23/23 1131 MR#: [id number] Acct: [id number] Name: AMAURY BLANK Rep #:[id number] : 1940 82 From: Irving Horowitz DO PCP: Dr. Rosa Maria Santacruz MD Status:ADM IN [facility] HPI Consult Data Date of Consult: [...] had a CTangio of the abdomen pelvis. [facility] Medical History Alcohol use Atherosclerotic heart disease of [place] coronary artery without angina pectoris Atrial fibrillation [...] Hyperlipidemia Hypertension Injury of head and neck MCC (current) use 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 Mitral valve insufficiency [...] 73.5 H, Lymph % (Auto) 11.9 L, [place] % (Auto) 10.3 H, Eos % (Auto) [...] Clarity Clear, Urine pH 7.0, Ur Specific [place] 1.010, Urine Protein Negative, Urine Glucose (UA) [...] 71.1 H, Lymph % (Auto) 14.8 L, [place] % (Auto) 9.7, Eos % (Auto) 3.6, [...] DO> Cosigner Signature (if applicable): CC: TESSA eMnendez; Dr. Rosa Maria Santacruz MD; Dr. William Dawson MD; Dr. Robby Lai DO; Dr. Lakshmi Carpenter MD; Dr. Kvng James MD; Dr. Daniel Jimenez MD; Dr. Oniel Moulton MD; Dr. Rufus Bruner MD~ Signed [facility] Work Phone: 1([phone]) 743-824112-26-2023 Procedure [facility] 06-24-2023 [facility]-25-2023 Progress note Author Priya Sheehan [facility] June 23, 2023 12:57pm Note Date/Time June 23, 2023 10:34am [facility] Medical Records Department [address] [place] [address] Progress Note 06/23/23 1031 MR#: [id number] Acct: [id number] Name: AMAURY BLANK Rep #:[id number] : 1940 82 From: Priya Sheehan MD PCP: Dr. Rosa Maria Santacruz MD Status:ADM IN Location: [address] Subjective Subjective Patient seen and [...] pneumothorax in August 2020 and was sen [facility] for CT evaluation. Had VATS. DVT prophylaxis; SCDs Charges/Coding Visit Charges Inpatient E&M: 12129 Subs Hosp L3 06/23/23 1257 <Electronically signed by Priya Sheehan MD> Priya Sheehan MD Cosigner Signature (if applicable): CC: ~ Signed [facility] Work Phone: 1([phone]) 110-142912-25-2023 Progress note Author William Dawson [facility] June 23, 2023 6:15am Note Date/Time June 23, 2023 6:15am [facility] Medical Records Department [address] [place] [address] Progress Note - Sliver Chopper 06/23/23611 MR#: [id number] Acct: [id number] Name: AMAURY BLANK Rep #:[id number] : 1940 82 From: William Dawson MD PCP: Dr. Rosa Maria Santacruz MD Status:ADM IN Location: [place] [address] Assessment & Plan Assessment/Plan (1) Acute respiratory [...] (Auto) 67.6, Lymph % (Auto) 17.2 L, [place] % (Auto) 11.7 H, Eos % (Auto) [...] Appearance: appropriate Charges/Coding Visit Charges Inpatient E&M: 54821 Subs Hosp L2 06/23/23 0615 <Electronically signed by William Dawson MD> Cosigner Signature (if applicable): CC: ~ Signed [facility] Work Phone: 1(850) 720-106412-24-2023 Progress note Author Priya [facility] June 22, 2023 1:56pm Note Date/Time June 22, 2023 10:51am [facility] Medical Records Department [address] [place] [address] Progress Note 06/22/23 1049 MR#: [id number] Acct: [id number] Name: AMAURY BLANK Rep #:[id number] : 1940 82 From: Priya Sheehan MD PCP: Dr. Rosa Maria Santacruz MD Status:ADM IN Location: [place] [address] Subjective Subjective Patient seen and examined. He [...] % (Auto) 67.6, Lymph % (Auto)17.2 L, [place] % (Auto) 11.7 H, Eos % (Auto) [...] pneumothorax in August 2020 and was sen [facility] for CT evaluation. Had VATS. DVT prophylaxis; SCDs Charges/Coding Visit Charges Inpatient E&M: 18128 Subs Hosp L2 06/22/23 1356 <Electronically signed by Priya Sheehan MD> Priya Sheehan MD Cosigner Signature (if applicable): CC: ~ Signed [facility] Work Phone: 1(484) 786-264812-24-2023 Consult note Author William Dawson [facility] June 22, 2023 8:49am Note Date/Time June 22, 2023 8:48am [facility] Medical Records Department [address] [place] [address] Consultation - Sliver Chopper 06/22/23 0829 MR#: [id number] Acct: [id number] Name: AMAURY BLANK Rep #:[id number] : 1940 82 From: William Dawson MD PCP: Dr. Rosa Maria Santacruz MD Status:ADM IN Location: [place] [address] Assessment & Plan Assessment/Plan (1) Acute respiratory [...] past medical history listed below, [facility] secondary to progressive palpitations and [...] Patient is unaware of ever seeing a water valve mechanic or having a PFT. However, review of [...] state that he has been admitted in [place] previously. Patient does report a history of pleural effusions, but is unaware of when the last tap was necessary. Patient also has a history of chronic kidney disease and believes he is doing okay. Given limitations, review of systems otherwise negative from a constitutional, HEENT, respiratory, cardiovascular, GI, genitourinary, musculoskeletal, skin, neurologic, psychiatric and hematologic system unless stated above. [facility] Medical History Alcohol use Atherosclerotic heart disease of [place] coronary artery without angina pectoris Atrial fibrillation [...] Hyperlipidemia Hypertension Injury of head and neck MCC (current) use 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 Mitral valve insufficiency [...] EST , Charges/Coding Visit Charges Inpatient E&M: 47256 Init Hosp L3 06/22/23 0849 <Electronically signed by William Dawson MD> Cosigner Signature (if applicable): CC: TESSA Menenedz; Dr. Rosa Maria Santacruz MD; Dr. William Dawson MD; Dr. Robby Lai DO; Dr. Lakshmi Carpenter MD; Dr. Kvng James MD; Dr. Daniel Jimenez MD; Dr. Oniel Moulton MD; Dr. Rufus Bruner MD~ Signed [facility] Work Phone: 1([phone]) 581-731412-23-2023 Progress note Author Priya [facility] June 21, 2023 2:15pm Note Date/Time June 21, 2023 10:38am [facility] Medical Records Department [address] [place] [address] Progress Note 06/21/23 1035 MR#: [id number] Acct: [id number] Name: AMAURY BLANK Rep #:[id number] : 1940 82 From: Priya Sheehan MD PCP: Dr. Rosa Mraia Santacruz MD Status:ADM IN Location: [place] [address] Subjective Subjective Patient seen and examined. He [...] 75.7 H, Lymph % (Auto) 12.9 L, [place] % (Auto) 9.5, Eos % (Auto) 1.0, [...] pneumothorax in August 2020 and was sen [facility] for CT evaluation. Had VATS. DVT prophylaxis; SCDs Charges/Coding Visit Charges Inpatient E&M: 16006 Subs Hosp L3 06/21/23 1415 <Electronically signed by Priya Sheehan MD> Priya Sheehan MD Cosigner Signature (if applicable): CC: ~ Signed [facility] Work Phone: 1([phone]) 319-563512-22-2023 Consult note Author Lakshmi Carpenter [facility] June 20, 2023 3:53pm Note Date/Time June 20, 2023 2:34pm [facility] Medical Records Department [address] [place] [address] Consultation - Cardiology 06/20/23 1421 MR#: [id number] Acct: [id number] Name: AMAURY BLANK Rep #:[id number] : 1940 82 From: Lakshmi Carpenter MD PCP: Dr. Rosa Maria Santacruz MD Status:ADM IN Location: [place] [id number]- [id number] <Statement entered by Lakshmi Carpenter MD - 06/20/23 15:53> Pt seen & evaluated w/LIBERTAD. I personally interviewed & exam the pt. I was involved in all aspects of pt's orders, interpretation of results & treatment Assessment & Plan Assessment/Plan (1) Severe sinus bradycardia: (2) Hypertension: (3) Hyperlipidemia: (4) Atherosclerotic heart disease of [place] coronary artery without angina pectoris: QUALIFIERS: [place] vs. 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 [...] underwent ROSI cardioversion during his hospitalization at [facility] September 2020. In August of 2020, patient was evaluated at [facility] emergency department in August 2020 for worsening shortness of breath. He was transferred to [facility] with CT surgery evaluation. He underwent VATS procedure for empyema. He was evaluated at [facility] in September 2020 for palpitations. His chest x-ray showed pneumothorax. Due to recent VATS procedure he was transferred to [facility]. He was evaluated to [facility] in October 2020 for syncope. He wastreated for acute GI losses secondary to acute sepsis secondary to acute C. difficile colitis. He was transitioned to TCU. He was evaluated by general purchasing agent and Xarelto therapy was discontinued on account [...] cardiac symptoms expect for his frequent falls [facility] Medical History Alcohol use Atherosclerotic heart disease of [place] coronary artery without angina pectoris Atrial fibrillation [...] Hyperlipidemia Hypertension Injury of head and neck MCC (current) use 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 Mitral valve insufficiency [...] Charges/Coding Visit Charges Office Visits / Consults: 44516 IP Consult L3 Objective Data Vital Signs: [...] 73.4 H, Lymph % (Auto) 13.3 L, [place] % (Auto) 10.9 H, Eos % (Auto) [...] 73.4 H, Lymph % (Auto) 13.3 L, [place] % (Auto) 10.9 H, Eos % (Auto) [...] , 06/20/23 1553 <Electronically signed by Lakshmi Carpetner MD> Cosigner Signature (if applicable): 06/20/23 1436 <Electronically signed by Teresa ARITA> CC: Dr. oRsa Maria Santacruz MD; Dr. Lakshmi Carpenter MD; Dr. Kvng James MD~ Signed [facility] Work Phone: 1(365) 877-815512-22-2023 Consult note Author Kvng James [facility] June 20, 2023 3:29pm Note Date/Time June 20, 2023 10:26am [facility] Medical Records Department [address] [place] [address] Consultation - Nephrology 06/20/23 1001 MR#: [id number] Acct: [id number] Name: AMAURY BLANK Rep #:[id number] : 1940 82 From: Jackie ZARATE PCP: Dr. Rosa Maria Santacruz MD Status:ADM IN Location: [place] [address] Documented by User: TESSA Nava 06/20/23 10:26 [...] is no acidemia, no acute indication for ADJUNCT NURSING FACULTY at this time. UA pending. Will check [...] extremity edema. Denies any nausea or vomiting. [facility] Medical History Alcohol use Atherosclerotic heart disease of [place] coronary artery without angina pectoris Atrial fibrillation [...] Hyperlipidemia Hypertension Injury of head and neck MCC (current) use 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 Mitral valve insufficiency [...] 73.4 H, Lymph % (Auto) 13.3 L, [place] % (Auto) 10.9 H, Eos % (Auto) [...] noted to be hyperkalemic. [facility], he received calcium gluconate, [...] is no acidemia, no acute indication for ADJUNCT NURSING FACULTY at this time. UA pending. 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 Kvng James MD~ Signed [facility] Work Phone: 1([phone]) 572-683112-22-2023 History and physical note Author Oniel Moulton [facility] June 20, 2023 11:06am Note Date/Time June 20, 2023 10:31am [facility] Medical Records Department [address] [place] [address] H&P Exam - Hospitalist 06/20/23 0742 MR#: [id number] Acct: [id number] Name: AMAURY BLANK Rep #:[id number] : 1940 82 From: Oniel Wallace PCP: Dr. 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 Senior Software Development Engineer consult requested. Last echo in November 2022 [...] estimated creatinine clearance 23 mill per minute. Criminal Defense Attorney is consulted. Patient got total of Kayexalate [...] anemia of chronic disease. The patient follows instrument tech Dr. Mcintyre 5. History of ulcerative colitis [...] with VATS : In August 2020 at [facility] after CT surgery evaluation. Had pneumothorax [...] with no intubation. He has power of workers compensation attorney for health and both sons are equally power of workers compensation attorney for healthcare Patient does want artificial life support including intubation, tube feed, ventilator and/chest compression, central venous catheter, vasopressor and DC shock if needed Total time spent in kqdh-qu-iwia encounter in discussion of advanced directive 17 [...] 73.4 H, Lymph % (Auto) 13.3 L, [place] % (Auto) 10.9 H, Eos % (Auto) [...] moderately enlarged. Charges/Coding Visit Charges Inpatient E&M: 61632 Init Hosp L3 Procedures Hospitalists Procedures: 75906 Advncd Care Plan 30 Min 06/20/23 1106 <Electronically signed by Oniel Moulton MD> Cosigner Signature (if applicable): CC: Dr. Rosa Maria Santacruz MD; Dr. Oniel Moulton MD~ Signed [facility] Work Phone: 1([phone] 296-253512-22-2023 Discharge summary Author Jakob Nowak [facility] June 20, 2023 8:02am Note Date/Time June 20, 2023 1:04am [facility] Medical Records Department [address] [place] [address] Emergency Department Summary 06/20/23 MR#: [id number] Acct: [id number] Name: AMAURY BLANK Rep #:[id number] : 1940 82 From: Jakob Orantes PCP: Dr. Rosa Maria Santacruz MD Status:ADM IN Location: [place] [address] HPI History of Present Illness Chief Complaint: [...] does have a history of atrial fibrillation. 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 PA interval was prolonged at 290 ms. QRS [...] AV block with a rate of 41. PA interval wasprolonged at 326 ms. QRS interval was normal at 120 ms. QTc interval was normal at 478 ms. [place] is borderline left axis deviation at -16. [...] 3-5 Days Disposition Disposition: Acute Care Hospital [facility] What to do if you have Problems For any increased pain, shortness of breath, bleeding, nausea or vomiting, chestpain, or any unexpected problems, contact your Primary Care Provider. Call [facility] ([phone]) or report to the closest Emergency Room. Call 911 if necessary. 06/20/23801 <Electronically signed by Jakob Nowak DO> Cosigner Signature (if applicable): CC: Dr. Rosa Maria Santacruz MD ~ Signed [facility] Work Phone: [phone] 357-452412-22-2023 Discharge summary Author Jakob [facility] June 20, 2023 8:02am Note Date/Time June 20, 2023 1:04am [facility] Medical Records Department [address] [place] [address] Emergency Department Summary 06/20/23 MR#: [id number] Acct: [id number] Name: AMAURY BLANK Rep #:[id number] : 1940 82 From: Jakob Orantes PCP: Dr. Rosa Maria Santacruz MD Status:ADM IN Location: [address] History of Present Illness Chief Complaint: [...] does have a history of atrial fibrillation. [facility] Medical History Alcohol use Atherosclerotic heart disease of [place] coronary artery without angina pectoris Atrial fibrillation [...] Hyperlipidemia Hypertension Injury of head and neck MCC (current) use 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 Mitral valve insufficiency [...] 73.4 H Lymph % (Auto) 13.3 L [place] % (Auto) 10.9 H Eos % (Auto) [...] 1:51 EST Reading Location ID and State: [facility] / [place] Tel , Service support , Portable chest [...] AV block with a rate of 60. PA interval was prolonged at 290 ms. QRS [...] AV block with a rate of 41. PA interval wasprolonged at 326 ms. QRS interval was normal at 120 ms. QTc interval was normal at 478 ms. [place] is borderline left axis deviation at -16. [...] 3-5 Days Disposition Disposition: Acute Care Hospital [facility] What to do if you have Problems For any increased pain, shortness of breath, bleeding, nausea or vomiting, chestpain, or any unexpected problems, contact your Primary Care Provider. Call [facility] ([phone]) or report to the closest Emergency Room. Call 911 if necessary. 06/20/23 0802 <Electronically signed by Jakob Nowak DO> Cosigner Signature (if applicable): CC: Dr. Rosa Maria Santacruz MD ~ Signed [facility] Work Phone: 1([phone]) 530-457912-20-2023 Progress note Author Warren Sampson [facility] June 18, 2023 3:02pm Note Date/Time June 18, 2023 2:47pm [facility] [address] [place] [address] Progress Note - Wound Care 06/18/23 1440 MR#: [id number] Acct: [id number] Name: AMAURY BLANK Rep #:[id number] : 1940 82 From: Warren Sampson D [...] service Follow-up Visit Follow-up Visit Follow-up Visit (Physician/BURN OUT TENDER LACE (Physician/BURN OUT TENDER LACE (Physician/BURN OUT TENDER LACE ) ) ) Arrival Mode Ambulatory, Ambulatory, [...] Medium (34-66%) Medium (34-66%) -Granulation Quality Pale [place] -Necrosis Amt Large (67-100%) Medium (34-66%) Small [...] Date 02/29/28 12/29/27 02/29/28 -Product Lot Number [id number] 001 -Percent Used 100 100 100 -Lot number of Saline Used [id number] -Bleeding Controlled with Pressure Pressure Pressure -Treatment [...] is to report to the emergency department [facility] for admission for neurological evaluation and [...] Cosigner Signature (if applicable): CC: ~ Signed [facility] Work Phone: 1([phone]) 195-507712-13-2023 Progress note Author Warren Sampson [facility] June 11, 2023 1:04pm Note Date/Time June 11, 2023 1:04pm [facility] [address] [place] [address] Progress Note - Wound Care 06/11/23 1254 MR#: [id number] Acct: [id number] Name: AMAURY BLANK Rep #:[id number] : 1940 82 From: Warren MARTINEZ PCP: [...] was seen in the emergency department at [facility] on 06/06/2023 secondary to a fall [...] Type of service Follow-up Visit Follow-up Visit (Physician/BURN OUT TENDER LACE (Physician/BURN OUT TENDER LACE ) ) Arrival Mode Ambulatory, Ambulatory, Walker [...] -Expiration Date 02/29/28 12/29/27 -Product Lot Number [id number] -Percent Used 100 100 -Lot number of Saline Used [id number] -Bleeding Controlled with Pressure Pressure -Treatment Response [...] Cosigner Signature (if applicable): CC: ~ Signed [facility] Work Phone: 1([phone]) 696-407712-08-2023 Hospital Discharge instructions Additional Instructions Follow-up with your primary care physician for wound check in 3 to 5 days. You may also follow-up with the wound center to follow the wound until it has healed.[facility] Work Phone: 1(298) 583-707912-06-2023 Progress note Author Warren Sampson [facility] June 04, 2023 1:52pm Note Date/Time June 04, 2023 1 :52pm [facility] [address] [place] [address] Progress Note - Wound Care 06/04/23 1346 MR#: [id number] Acct: [id number] Name: AMAURY BLANK Rep #:[id number] : 1940 82 From: Warren Wallace PM [...] Post-Debridement Measurements and Additional Note: Post-Debridement Measurements/Treatment [facility] Nurse 1 - General Ulcer Assessment Start: 06/04/23 11:28 Freq: Status: Active Protocol: STEVE.LOWEXT Activity Type Activity Date Activity User E-sign Co-sign Detail Recorded Client Recorded Date Recorded By Document 06/04/23 11:30 DL Desktop 06/04/23 11:37 DL 06/04/23 11:30 - Today's Visit Information Type of service Follow-up Visit (Physician/BURN OUT TENDER LACE ) Arrival Mode Ambulatory, Walker Transfer Assistance [...] Epifix -Expiration Date 02/29/28 -Product Lot Number [id number] -Percent Used 100 -Lot number of Saline Used [id number] -Bleeding Controlled with Pressure -Treatment Response Procedure [...] Cosigner Signature (if applicable): CC: ~ Signed [facility] Work Phone: 1([phone]) 972-502411-22-2023 Progress note Author Warren Sampson [facility] May 21, 2023 2:30pm Note Date/Time May 21, 2023 2:30pm [facility] [address] [place] [address] Progress Note - Wound Care 05/21/23 1427 MR#: [id number] Acct: [id number] Name: AMAURY BLANK Rep #:[id number] : 1940 82 From: Warren Wallace PM [...] Date Recorded By Document 04/30/23 09:57 KW [id number] 04/30/23 10:07 KW Document 05/07/23 13:29 KW Desktop 05/07/23 13:37 KW Document 05/14/23 14:28 NR Desktop 05/14/23 14:36 NR Document 05/21/23 13:21 Desktop 05/21/23 13:29 04/30/23 05/07/23 05/14/23 09:57 13:29 14:28 - Today's Visit Information Type of service Follow-up Visit Follow-up Visit Follow-up Visit (Physician/BURN OUT TENDER LACE (Physician/BURN OUT TENDER LACE (Physician/BURN OUT TENDER LACE ) ) ) Arrival Mode Ambulatory, Ambulatory, [...] Visit Information Type of service Follow-up Visit (Physician/BURN OUT TENDER LACE ) Arrival Mode Ambulatory, Walker Transfer Assistance [...] (34-66%) Large (67-100%) Medium (34-66%) -Granulation Quality [place] Red -Slough/Fibrin Yes -Necrosis Amt Small (1-33%) [...] Date 12/29/27 12/29/27 12/29/27 -Product Lot Number [id number] 018 -Percent Used 100 100 100 -Lot number of Saline Used [id number] -Bleeding Controlled with Pressure Pressure Pressure -Treatment [...] Cosigner Signature (if applicable): CC: ~ Signed [facility] Work Phone: [phone]) 167-575811-15-2023 Progress note Author Warren Sampson [facility] May 14, 2023 4:25pm Note Date/Time May 14, 2023 4:25pm [facility] [address] [place] [address] Progress Note - Wound Care 05/14/23 1621 MR#: [id number] Acct: [id number] Name: AMAURY BLANK Rep #:[id number] : 1940 82 From: Warren Wallace PM [...] Date Recorded By Document 04/30/23 09:57 KW [id number] 04/30/23 10:07 KW Document 05/07/23 13:29 KW Desktop 05/07/23 13:37 KW Document 05/14/23 14:28 NRL Desktop 05/14/23 14:36 NRL 04/30/23 05/07/23 05/14/23 09:57 13:29 14:28 - Today's Visit Information Type of service Follow-up Visit Follow-up Visit Follow-up Visit (Physician/BURN OUT TENDER LACE (Physician/BURN OUT TENDER LACE (Physician/BURN OUT TENDER LACE ) ) ) Arrival Mode Ambulatory, Ambulatory, [...] Amt Medium (34-66%) Large (67-100%) -Granulation Quality [place] -Slough/Fibrin Yes -Necrosis Amt Small (1-33%) Small [...] Date 12/29/27 12/29/27 12/29/27 -Product Lot Number [id number] 018 -Percent Used 100 100 100 -Lot number of Saline Used [id number] -Bleeding Controlled with Pressure Pressure Pressure -Treatment [...] I73.9 - Peripheral vascular disease, unspecified 05/14/23 6502 <Electronically signed by Warren Sampson DPM> Cosigner Signature (if applicable): CC: ~ Signed [facility] Work Phone: [phone]) 892-449511-08-2023 Progress note Author Warren Sampson [facility] May 07, 2023 2:04pm Note Date/Time May 07, 2023 2 :04pm [facility] [address] [place] [address] Progress Note - Wound Care 05/07/23 1401 MR#: [id number] Acct: [id number] Name: AMAURY BLANK Rep #:[id number] : 1940 82 From: Warren Wallace PM [...] Date Recorded By Document 04/30/23 09:57 KW [id number] 04/30/23 10:07 KW Document 05/07/23 13:29 KW Desktop 05/07/23 13:37 KW 04/30/23 05/07/23 09:57 13:29 - Today's Visit Information Type of service Follow-up Visit Follow-up Visit (Physician/BURN OUT TENDER LACE (Physician/BURN OUT TENDER LACE ) ) Arrival Mode Ambulatory, Ambulatory, Walker [...] Attached -Granulation Amt Medium (34-66%) -Granulation Quality [place] -Necrosis Amt Small (1-33%) -Necrotic Tissue Type [...] -Expiration Date 12/29/27 12/29/27 -Product Lot Number [id number] -Percent Used 100 100 -Lot number of Saline Used [id number] -Bleeding Controlled with Pressure Pressure -Treatment Response [...] Cosigner Signature (if applicable): CC: ~ Signed [facility] Work Phone: [phone] 913-222811-01-2023 Progress note Author Warren Sampson [facility] April 30, 2023 10:22am Note Date/Time April 30, 2023 1 0:22am [facility] [address] [place] [address] Progress Note - Wound Care 04/30/23 1018 MR#: [id number] Acct: [id number] Name: AMAURY BLANK Rep #:[id number] : 1940 82 From: Warren Wallace PM [...] Date Recorded By Document 04/30/23 09:57 KW [id number] 04/30/23 10:07 KW 04/30/23 09:57 - Today's Visit Information Type of service Follow-up Visit (Physician/BURN OUT TENDER LACE ) Arrival Mode Ambulatory, Walker Patient Identification [...] 0-10 Numeric Is Patient Pain Free? Yes [facility] Nurse 2 - General Ulcer CM [...] Epifix -Expiration Date 12/29/27 -Product Lot Number [id number] -Percent Used 100 -Lot number of Saline Used [id number] -Bleeding Controlled with Pressure -Treatment Response Procedure [...] Cosigner Signature (if applicable): CC: ~ Signed [facility] Work Phone: 1(340) 225-982910-25-2023 Progress note Author Warren Sampson [facility] April 23, 2023 2:39pm Note Date/Time April 23, 2023 2 :39pm [facility] [address] [place] [address] Progress Note - Wound Care 04/23/23 1429 MR#: [id number] Acct: [id number] Name: AMAURY BLANK Rep #:[id number] : 1940 82 From: Warren Wallace PM PCP: Dr. Paco Norman MD Status:R EG RCR Location: History of Present Illness Date of Service: 04/23/23 Chief Complaint: Left foot ulcerations History of Wound: Chronic wounds left foot self treatment as well as SNF treatment Progress of Wound: Mr. Blank is a 82-year-old male presenting to the wound care center today at [facility] with a chief complaint of ulcerations to the left foot. Patient has 2 wounds to the top and heel of the left foot. Patient was recently residing in a assisted secondary to pneumonia and a hip fracture. [...] was debrided to the left heel with [facility]'s ultrasonic debrider. The left dorsal wound was [...] Type of service Initial Visit Follow-up Visit (Physician/BURN OUT TENDER LACE ) Arrival Mode Ambulatory, Ambulatory, Walker Walker [...] Bottom <Entered> (a) Communication Assessment Preferred language British Able to Read Yes Able to Write [...] in Ability to Perform Denies Any Declines Culture/Judaism/Commercial Designer Cultural/Judaism Needs that may affect No Treatment Plan Would you allow our hospital critical care technician to No meet you for the purpose of spiritual/ emotional support? Commercial Designer to contact place of mormon No Teaching: Wound Center Discharge Instructions -Person [...] Present (0 Medium (34-66%) %) -Granulation Quality [place] -Necrosis Amt Large (67-100%) Medium (34-66%) -Necrotic [...] Amt Small (1-33%) Medium (34-66%) -Granulation Quality [place] -Necrosis Amt None Present (0 Small (1-33%) [...] Epifix -Expiration Date 12/29/27 -Product Lot Number [id number] -Percent Used 100 -Lot number of Saline Used [id number] -Bleeding Controlled with Pressure Pressure -Treatment Response [...] Recorded Date Recorded By Document 04/16/23 14:24 [facility] Desktop 04/16/23 14:27 [facility] 04/16/23 14:24 W[facility] Care Center Nurse 3 #2 L Heel -Ulcer Cleansing Rinsed/ Irrigated with Saline -Foul Odor after Cleansing No -Other Dressing hydrogel -Primary Dressing Covered/Secured with Dry Gauze & Roll Gauze, Secured with Tape -Other Covering per dl curtain worker #1 L Dorsal foot -Ulcer Cleansing Rinsed/ Irrigated with Saline -Foul Odor after Cleansing No -Other Dressing antibiotic oint -Primary Dressing Covered/Secured with Dry Gauze & Roll Gauze, Secured with Tape -Other Covering per dl curtain worker Treatment Response Procedure Tolerated Well Pain Scale: [...] to and including subcutaneous tissue with the Agilianceonix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 (tranexamic acid (CYKLOKAPRON) in NaCl 0.7%) 100 100 Volume (mL) (NaCl 0.9% iv infusion) 400 400 Volume (mL) (lactated ringers iv infusion) 500 500 Volume (mL) (lactated ringers iv infusion) 500 500 Shift Total 039 801 3639 1200 OUTPUT Urine 50 50 300 300 [...] consciousness, sequela 01/03/2023 Coronary artery disease involving [place] coronary artery of [place] heart 01/04/2023 S/P CABG (coronary artery bypass graft) 01/04/2023 Atrial fibrillation ([facility]) 01/04/2023 Primary hypertension 01/04/2023 Other hyperlipidemia 01/04/2023 COPD (chronic obstructive pulmonary disease) ([facility]) 01/04/2023 Fall 01/04/2023 Stasis ulcer ([facility]) 01/03/2023 Skin tear of left elbow [...] diet ord (more content not included)...[facility] 01-04-2023 NoteHNO ID: [id number] Author: Moni Childers RN Service: Nursing Author Type: Registered Nurse Type: Nursing Progress Note Filed: 01/04/2023 6:18 PM Note Text: [facility]-2023 NoteHNO ID: [id number] Author: Bert Bellamy MD Service: Anesthesiology Author [...] January 04, 2023 TIME: 4:49 PM CSN: [id number] Light [facility]07-08-2023 NoteHNO ID: [id number] Author: Moni Childers, PROMISE Service: Nursing Author Type: Registered Nurse Type: Nursing Progress Note Filed: 01/04/2023 6:19 PM Note Text: Fascia iliaca block given per [facility] Bellamy at [facility]07-08-2023 NoteHNO ID: [id number] Author: Ricky Quintana MD Service: Orthopaedic Surgery [...] - PGY 3 4:07 PM 01/04/2023 Pager #[phone]07[facility]2023 NoteHNO ID: [id number] Author: Nathaniel Genao APRN.CRNA Service: Anesthesiology Author Type: Nurse Blade Groover Type: Anesthesia Procedure Notes Filed: 01/04/2023 3:13 PM Note Text: ANESTHESIOLOGY PROCEDURE NOTE Airway General Information Procedure Start Time/Medication Administration: 01/04/2023 2:55 PM Procedure End Time: 01/04/2023 2:56 PM Patient location during procedure: OR Timeout Performed Pre-procedure: timeout performed Consent Obtained: Yes Patient identity confirmed: arm band Staffing MORTGAGE LOAN COMPUTATION CLERK: Nathaniel Genao APRN.MORTGAGE LOAN COMPUTATION CLERK Performed by: MORTGAGE LOAN COMPUTATION CLERK Indications and Patient Condition Indications for airway management: anesthesia Preoxygenated: yes anesthesia circuit Method: asleep Difficult Mask: No Final Airway Details Final airway type: supraglottic airway Number of attempts at approach: 1 Final Supraglottic Airway: i-gel Size 4 Seal Adequate: yes Airway not difficult SIGNATURE: Nathaniel Genao APRN.MORTGAGE LOAN COMPUTATION CLERK PATIENT NAME: Amaury Blank DATE: January 04, 2023 TIME: 3:13 PM CSN: [id number] Light Maine [facility] Hospital07-08-2023 NoteHNO ID: [id number] Author: Esha Engel RN Service: Nursing Author Type: Registered Nurse Type: Nursing Progress Note Filed: 01/04/2023 2:36 PM Note Text: Mopved pt to PACU spot 3 waiting for [facility]Northern [facility] 01-04-2023 NoteHNO ID: [id number] Author: Ricky Quintana MD Service: Orthopaedic Surgery [...] - PGY 3 6:19 AM 01/04/2023 Pager #[phone] INPATIENT ATTENDING: Dr. Errol Rod MD, Urgent [...] Recommendations: MST: Total MST Score (Calculated): 3 Puff Ironer: Pharmacy: Consult not needed Social Work: NA Anticipated [id number] NoteHNO ID: [id number] Author: Sergio Sofia APRN.B[employer] Service: Neurosurgery Author Type: Nurse Practitioner Type: [...] 01/03/23699 - 01/04/2365801/04/23699 - 01/05/23 0659 Shift 1710-1393 5699-8349 7346-5110 24 Hour Total 8572-4839 7405-6008 2102-8844 24 Hour Total INTAKE IV 400 400 [...] January 04, 2023 TIME: 5:21 AM Pager: [phone]07-08-2023 NoteHNO ID: [id number] Author: Interface Note Service: ? Author Type: ? Type: Progress Notes Filed: 01/04/2023 4:02 AM Note Text: Epic Scheduled Downtime: 01/04/2023 1:02:30 AM to 01/04/2023 3:40:00 AMNorthern [facility] Castaneda [facility] December 03, 2022 3:07pm Note Date/Time December 03, 2022 3:07p [facility] Medical Records Department [address] [place] [address] Discharge Summary 12/03/22 1506 MR#: [id number] Acct: [id number] Name: AMAURY BALNK Rep #:[id number] : 1940 82 From: Sammie Castaneda MD PCP: Dr. Rosa Maria Santacruz MD Status:ADM IN Location: [place] [address] Providers Date of Admission: 11/29/22 Date of Discharge: 12/03/22 Primary Care Physician: Dr. Rosa Maria Santacruz MD Consultations 11/29/22 05:22 Consult: Onc/Wound/info specialist Routine Comment: 11/30/22 15:31 Consult: Nephrology Routine [...] mg tablet,delayed release 81 mg PO DAILY@0800 [facility] 08/29/16 levothyroxine 50 mcg tablet 75 [...] disease, PVD, ulcerative colitis, hypothyroidism presented to [facility] 11/29/2022 due to falls and weakness. He [...] 78.1 H, Lymph % (Auto) 7.7 L, [place] % (Auto) 12.0 H, Eos % (Auto) [...] Left Blood Culture - Preliminary GNR lactose fundraising director 11/29/22 02:06 Nasal Secretion SARS-CoV-2 & [...] in before D/C Order can be placed): [facility] Charges/Coding Visit Charges Inpatient E&M: 86281 Disch Hosp >30min 12/03/22 1507 <Electronically signed by Sammie Castaneda MD> Cosigner Signature (if applicable): CC: Dr. Rosa Maria Santacruz MD; Dr. Sammie Castaneda MD~ Signed [facility] Work Phone: 1([phone]) [phone] Castaneda [facility] December 03, 2022 3:06pm Note Date/Time December 03, 2022 3:05p m [facility] Medical Records Department [address] [place] [address] Transfer to Extended Care MR#: [id number] Acct: [id number] Name: AMAURY BLANK Rep #:[id number] : 1940 82 From: Sammie Castaneda MD PCP: Dr. Rosa Maria Santacruz MD Status:ADM IN Certification of patient admission REQUIRED AT TIME OF ADMISSION. I CERTIFY THAT POST-HOSPITAL ECF SERVICES ARE REQUIRED TO BE GIVEN ON AN IN-PATIENT BASIS BECAUSE OF THE ABOVE NAMED PATIENT'S NEED FOR USP CARE ON A CONTINUING BASIS FOR THE CONDITION(S) FOR WHICH HE/SHE WAS RECEIVING IN-PATIENT HOSPITAL SERVICES PRIOR TO HIS/HER TRANSFER TO THE [facility]. 12/03/22 1506<Electronically signed by Sammie Castaneda MD> [...] disease, PVD, ulcerative colitis, hypothyroidism presented to [facility] 11/29/2022 due to falls and weakness. He [...] in before D/C Order can be placed): [facility] 12/03/22 1506 <Electronically signed by Sammie Castaneda MD> Cosigner Signature (if applicable): CC: Dr. Rosa Maria Santacruz MD; Dr. Jakob Alexander DO; Dr. Kvng James MD ~ [facility] Work Phone: 1([phone]) 348-690306-06-[address] James [facility] December 03, 2022 12:44pm Note Date/Time December 02, 2022 11:38 am [facility] Medical Records Department [address] [place] [address] Progress Note - Nephrology 12/02/22 1129 MR#: [id number] Acct: [id number] Name: AMAURY BLANK Rep #:[id number] : 1940 82 From: Jackie deshpande [employer]-C PCP: Dr. Rosa Maria Santacruz MD Status:ADM IN Location: [place] [id number] Subjective Subjective Resting in bed. Reports [...] Left Blood Culture - Preliminary GNR lactose fundraising director 11/29/22 02:06 Nasal Secretion SARS-CoV-2 & [...] 3.12mg/dL. No acute or emergent indication for ADJUNCT NURSING FACULTY, potassium and bicarb acceptable, patient is nonoliguric [...] by Kvng James MD> CC: ~ Signed [facility] Work Phone: 1(263) 999-549306-06-[address] James [facility] December 03, 2022 12:44pm Note Date/Time December 03, 2022 10:32 am [facility] Medical Records Department [address] [place] [address] Progress Note - Nephrology 12/03/22 1023 MR#: [id number] Acct: [id number] Name: AMAURY BLANK Rep #:[id number] : 1940 82 From: Jackie ZARATE PCP: Dr. Rosa Maria Santacruz MD Status:ADM IN Location: [place] [address] Documented by User: TESSA Nava 12/03/22 10:32 [...] 88.9 H, Lymph % (Auto) 2.8 L, [place] % (Auto) 6.8, Eos % (Auto) 0.3, [...] 78.1 H, Lymph % (Auto) 7.7 L, [place] % (Auto) 12.0 H, Eos % (Auto) [...] Left Blood Culture - Preliminary GNR lactose fundraising director 11/29/22 02:06 Nasal Secretion SARS-CoV-2 & [...] now. No acute or emergent indication for ADJUNCT NURSING FACULTY, potassium and bicarb acceptable, patient is nonoliguric [...] now. No acute or emergent indication for ADJUNCT NURSING FACULTY, potassium and bicarb acceptable, patient is nonoliguric [...] by Kvng James MD> CC: ~ Signed [facility] Work Phone: 1(330) 993-803506-05-[address] Castaneda [facility] December 02, 2022 12:00pm Note Date/Time December 02, 2022 7:45a m [facility] Medical Records Department [address] [place] [address] Progress Note - Hospitalist 12/02/22 0744 MR#: [id number] Acct: [id number] Name: AMAURY BLANK Rep #:[id number] : 1940 82 From: Sammie Castaneda MD PCP: Dr. Rosa Maria Santacruz MD Status:ADM IN Location: [place] [address] Reason for Visit Reason for Visit: Diagnoses [...] Left Blood Culture - Preliminary GNR lactose fundraising director 11/29/22 02:06 Nasal Secretion SARS-CoV-2 & [...] prelim blood cultures with gram-negative jessy lactose fundraising director's. Awaiting final cultures -12/01: First blood [...] empyema with VATS -In August 2020 at [facility] after CT surgery evaluation -Had resultant pneumothorax at that time #DVT ppx: SCDs ordered given thrombocytopenia Sammie Castaneda MD Charges/Coding Visit Charges Inpatient E&M: 63814 Subs Hosp L2 12/02/22 1200 <Electronically signed by Sammie Castaneda MD> Cosigner Signature (if applicable): CC: ~ Signed [facility] Work Phone: 1(173) [phone] James [facility] December 01, 2022 10:03am Note Date/Time December 01, 2022 10:00 am [facility] Medical Records Department [address] [place] [address] Consultation - Nephrology 12/01/22 0957 MR#: [id number] Acct: [id number] Name: AMAURY BLANK Rep #:[id number] : 1940 82 From: Kvng fernandes MD PCP: Dr. Rosa Maria Santacruz MD Status:ADM IN Location: [place] [address] Assessment & Plan Assessment/Plan (1) Acute renal [...] Patient himself denies any urine related problems. [facility] Medical History Alcohol use Ambulates with cane Atherosclerotic heart disease of [place] coronary artery without angina pectoris Atrial fibrillation [...] Hyperlipidemia Hypertension Injury of head and neck MCC (current) use 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 Mitral valve insufficiency [...] 85.5 H, Lymph % (Auto) 4.5 L, [place] % (Auto) 8.0, Eos % (Auto) 0.2, [...] Left Blood Culture - Preliminary GNR lactose fundraising director 12/01/22 1000 <Electronically signed by Kvng [...] DO; Dr. Kvng James MD ~* Signed [facility] Work Phone: 1([phone]) [phone] Castaneda [facility] December 01, 2022 9:45am Note Date/Time December 01, 2022 7:56a m [facility] Medical Records Department [address] [place] [address] Progress Note - Hospitalist 12/01/22751 MR#: [id number] Acct: [id number] Name: AMAURY BLANK Rep #:[id number] : 1940 82 From: Sammie Castaneda MD PCP: Dr. Rosa Maria Santacruz MD Status:ADM IN Location: [address] 1 Reason for Visit Reason for [...] 85.5 H, Lymph % (Auto) 4.5 L, [place] % (Auto) 8.0, Eos % (Auto) 0.2, [...] Left Blood Culture - Preliminary GNR lactose fundraising director 11/29/22 02:06 Nasal Secretion SARS-CoV-2 & [...] prelim blood cultures with gram-negative jessy lactose fundraising director's. Awaiting final cultures -12/01: First blood [...] empyema with VATS -In August 2020 at [facility] after CT surgery evaluation -Had resultant pneumothorax at that time #DVT ppx: SCDs ordered given thrombocytopenia Sammie Castaneda MD Charges/Coding Visit Charges Inpatient E&M: 95517 Subs Hosp L2 12/01/22 0945 <Electronically signed by Sammie Castaneda MD> Cosigner Signature (if applicable): CC: ~ Signed [facility] Work Phone: [phone]) 323-152006-03-[address] Castaneda [facility] November 30, 2022 9:58am Note Date/Time November 30, 2022 7:32a m [facility] Medical Records Department [address] [place] [address] Progress Note - Hospitalist 11/30/22 0731 MR#: [id number] Acct: [id number] Name: AMAURY BLANK Rep #:[id number] : 1940 82 From: Sammie Castaneda MD PCP: Dr. Rosa Maria Santacruz MD Status:ADM IN Location: [place] [address] Reason for Visit Reason for Visit: Diagnoses [...] Reviewed 11/29/22 06:55: Immature Gran % (Auto) BURN OUT TENDER LACE, Neut % (Auto) BURN OUT TENDER LACE, Lymph % (Auto) BURN OUT TENDER LACE, [place] % (Auto) BURN OUT TENDER LACE, Eos % (Auto) BURN OUT TENDER LACE, Baso % (Auto) BURN OUT TENDER LACE, Absolute Lymphs (auto) 0.41L, Total Counted 100, Neutrophils % (Manual) 39 L, Band Neutrophils % 20 H, Lymphocytes % (Manual) 18 L, Monocytes % (Manual) 6, Metamyelocytes % 17 H, DiffPath Review Reviewed, Platelet Estimate MOD DEC, Microcytosis BURN OUT TENDER LACE, Macrocytosis 1+, Ovalocytes RARE 11/29/22 06:55: Sodium 143, Potassium 4.8, Chloride 115 H, Carbon Dioxide 20.0 L, Anion Gap 8, BUN 45 H, Creatinine 2.53 H, Estim Creat Clear Calc 23.64, Est GFR (MDRD) Af Amer 32 L, Est GFR (MDRD) Non-Af 26 L, BUN/Creatinine Ratio 17.8, Glucose 99, Calcium 8.1 L, Iron 6 L, TIBC 187 L, Iron Saturation 3.2 L, [id number] H, Troponin I High Sens 139 H*, [...] 87.8 H, Lymph % (Auto) 6.1 L, [place] % (Auto) 5.2, Eos % (Auto) 0.0, [...] Left Blood Culture - Preliminary GNR lactose fundraising director 11/29/22 02:30 Blood Culture (Wb) - Anticubital Right Blood Culture - Preliminary GNR lactose fundraising director 11/29/22 02:06 Nasal Secretion SARS-CoV-2 & [...] prelim blood cultures with gram-negative jessy lactose fundraising director's. Awaiting final cultures #Elevated troponin -Suspect [...] empyema with VATS -In August 2020 at [facility] after CT surgery evaluation -Had resultant pneumothorax at that time #DVT ppx: SCDs ordered given thrombocytopenia Sammie Castaneda MD Charges/Coding Visit Charges Inpatient E&M: 37217 Subs Hosp L2 11/30/22 0958 <Electronically signed by Sammie Castaneda MD> Cosigner Signature (if applicable): CC: ~ Signed [facility] Work Phone: 1(365) [phone] Castaneda [facility] November 29, 2022 4:50pm Note Date/Time November 29, 2022 9:09a m [facility] Medical Records Department [address] [place] [address] Progress Note - Hospitalist 11/29/22 0857 MR#: [id number] Acct: [id number] Name: AMAURY BLANK Rep #:[id number] : 1940 82 From: Sammie Castaneda MD PCP: Dr. Rosa Maria Santacruz MD Status:ADM IN Location: [place] [address] Hospitalist Note 82-year-old male history of alcohol use, A-fib, emphysema, coronary artery disease, GI bleed, ulcerative colitis presented to [facility] 11/28 for falls, weakness, fever. At time [...] empyema with VATS -In August 2020 at [facility] after CT surgery evaluation -Had resultant pneumothorax at that time #DVT ppx: SCDs given thrombocytopenia Sammie Castaneda MD 11/29/22 1650 <Electronically signed by Sammie Castaneda MD> Cosigner Signature (if applicable): CC: ~ Signed [facility] Work Phone: 1(351) 950-493306-02-[address] Joe [facility] November 29, 2022 6:52am Note Date/Time November 29, 2022 1:54a m [facility] Medical Records Department [address] [place] [address] Emergency Department Summary 11/29/22 MR#: [id number] Acct: [id number] Name: AMAURY BLANK Rep #:[id number] : 1940 82 From: Lupe Joe DO PCP: Dr. Rosa Maria Santacruz MD Status:ADM IN Location: [place] [address] 1 HPI HPI - Fall History of [...] of his left ankle 4 nights ago. [facility] Medical History Alcohol use Ambulates with cane Atherosclerotic heart disease of [place] coronary artery without angina pectoris Atrial fibrillation [...] Hyperlipidemia Hypertension Injury of head and neck MCC (current) use 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 Mitral valve insufficiency [...] 82.6 H Lymph % (Auto) 10.4 L [place] % (Auto) 6.5 Eos % (Auto) 0.0 [...] Color Urine Clarity Urine pH Ur Specific [place] Urine Protein Urine Glucose (UA) Urine Ketones [...] (Auto) Neut % (Auto) Lymph % (Auto) [place] % (Auto) Eos % (Auto) Baso % [...] Clarity Clear Urine pH 5.0 Ur Specific [place] 1.015 Urine Protein 100 H Urine Glucose [...] kidney insufficiency Disposition Disposition: Acute Care Hospital [facility] What to do if you have Problems For any increased pain, shortness of breath, bleeding, nausea or vomiting, chestpain, or any unexpected problems, contact your Primary Care Provider. Call [facility] ([phone]) or report to the closest Emergency Room. Call 911 if necessary. 11/29/22 0652 <Electronically signed by Lupe Joe DO> Cosigner Signature (if applicable): CC: Dr. Rosa Maria Santacruz MD ~ Signed [facility] Work Phone: 1(341) 946-865106-02-2023 History and physical note Author Dr. Alexander [facility] November 29, 2022 4:54am Note Date/Time November 29, 2022 4:47a m [facility] Medical Records Department [address] [place] [address] H&P Exam - Hospitalist 11/29/22 0439 MR#: [id number] Acct: [id number] Name: AMAURY BLANK Rep #:[id number] : 1940 82 From: Jakob Alexander DO PCP: Dr. Rosa Maria Santacruz MD Status:ADM IN Location: [facility] [id number]- 1 HPI - General General Date of [...] hospital service was contacted for further admission. [facility] Medical History Alcohol use Ambulates with cane Atherosclerotic heart disease of [place] coronary artery without angina pectoris Atrial fibrillation [...] Hyperlipidemia Hypertension Injury of head and neck MCC (current) use 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 Mitral valve insufficiency [...] mg tablet,delayed release 81 mg PO DAILY@0800 [facility] 08/29/16 [History Last Taken 04/23/21] levothyroxine [...] 82.6 H, Lymph % (Auto) 10.4 L, [place] % (Auto) 6.5, Eos % (Auto) 0.0, [...] Clarity Clear, Urine pH 5.0, Ur Specific [place] 1.015, Urine Protein 100 H, Urine Glucose [...] and treat Cannot rule out need for fpc facility upon discharge. (5) Skin tear: PLAN: [...] 72 hours. Charges/Coding Visit Charges Inpatient E&M: 59869 Init Hosp L3 11/29/22 0454 <Electronically signed by Jakob Alexander DO> Cosigner Signature (if applicable): CC: Dr. Rosa Maria Santacruz MD; Dr. Jakob Alexander DO~ Signed [facility] Work Phone: 1(182) 757-301104-10-2021 NoteDischarge Summary Amaury Blank : 1940 ADMIT [...] from his legs and heels. Seen by diabetes specialist 09/07/20 - per documentation was instructed to begin Edecrin 50mg qD based on his known allergy to Lasix. Pt currently asymptomatic while resting in bed, SpO2 >90% on room air at present time ? - On last admission was noted to have Pneumonia, currently has PICC line placed w/ daily Ceftriaxone to run through 10/04/20 ? - CXR performed at [place] ED 10/02/20: New right sided pneumothorax without [...] He was admitted to medical floor. CTS, fruit grader, bank guard, ID consulted. Underwent chest tube placement. Antibiotic [...] was increased to 5 mg bid by fruit grader, recommended to continue that despite renal function [...] lesions. Neuro: intact, belgica (more content not included)...[facility]03-25-2021 NoteDischarge Summary Amaury Blank : 1940 Age: 80 y.o. ADMIT DATE: 09/11/2020 DISCHARGE DATE: 09/21/2020 DISCHARGING SURGEON: Kassandra Davidson MD Office Number: [phone] PRIMARY CARE PHYSICIAN: No primary care provider [...] DISCHARGE MEDICATIONS: Amaury Blank Home Medication Instructions DARIUS:[id number] Printed on:09/21/20 6996 Medication Information amiodarone (CORDARONE) 200 MG tablet [...] hesitate to contact us. SIGNED: Kylah Liz, [facility]03-16-2021 [facility] Department of Radiology Post Procedure Progress Note Pre-Procedure Diagnosis: Emypema. Procedure Performed: CT-guided right chest drain placement. Anesthesia: Local Conscious Sedation: 50 micrograms fentanyl iv total. Sedation Time: 30 minutes Findings: Large right-sided effusion/emyema. Outcomes: Successful placement of a 12 Nepalese drain. Specimens: 60+ mL frankly purulent iverson fluid sent for C & S. Estimated Blood Loss: Minimal Immediate Complications: None Final report to follow in Radiology Results. [facility] Author Josephine Castillo [facility] June 25, 2023 5:07pm Note Date/Time June 25, 2023 5:07pm [facility] Medical Records Department [address] [place] [address] Counseling Note - Pharmacy 06/25/23 1705 MR#: [id number] Acct: [id number] Name: AMAURY BLANK Rep #:[id number] : 1940 82 From: Josephine Castillo PCP: Dr. Rosa Maria Santacruz MD Status:ADM [facility] has performed discharge medication reconciliation [...] Signature (if applicable): Date CC: ~ Signed [facility] Work Phone: Consult note Author Dima Mancilla [facility] Note Date/Time December 27, 2024 12:[address] [facility] Medical Records Department [address] [place] [address] Anesthesia Postop Eval I 12/27/24 1213 MR#: [id number] Acct: [id number] Name: AMAURY BLANK Rep #:[id number] : 1940 84 From: Dima CHOI NA PCP: Dr. Jakob Flower MD Status:REG SDC Y Race: C Location: [place] [address] Anesthesia: Postop Eval I Current Vital Signs [...] Dima Mancilla CRNA> Date _ Dima Mancilla CRNA Cosigner Signature: Date CC: ~ Signed [facility] Work Phone: Discharge summary Author Aurelia Umaña [facility] Note Date/Time December 27, 2024 11:5 0am [facility] Medical Records Department [address] [place] [id number] Instructions for Home/Discharge Instructions 12/27/24 1148 MR#: [id number] Acct: [id number] Name: AMAURY BLANK Rep #:[id number] : 1940 84 From: Aurelia chan MD PCP: Dr. Jakob Flower MD Status:REG [facility] Discharge Instructions Procedure Hernia Diet Discharge Diet: [...] to schedule 2 week follow up appointment. [phone] Test Results: Test results from this visit will be discussed in further detail at your follow- up appointment, if applicable. Discharge Plan Admission Attending Provider: Aurelia Umaña Primary Care Provider: Jakob Flower Instructions Print Language: British Discharge Orders/Prescriptions Prescriptions: New oxycodone 5 mg [...] CC: Dr. Jakob Flower MD ~ Signed [facility] Work Phone: Evaluation note* Diagnosis Onset Date Resolution Status Anemia chronic Chronic kidney disease (CKD) chronic Pancytopenia [facility] Work Phone: Evaluation note* Diagnosis Onset Date Resolution Status Mitral valve insufficiency a cute PAD (peripheral artery disease) acute Atherosclerotic heart diseas e of [place] coronary artery without angina pectoris chronic Atrial fibrillation and flutter chronic Essential hypertension chron ic Hyperlipidemia chronic [id number] chronic 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, resolved Mitral valve insufficiency a cute PAD (peripheral artery disease) acute Atherosclerotic heart diseas e of [place] coronary artery without angina pectoris chronic Atrial fibrillation and flutter chronic Essential hypertension chron ic Hyperlipidemia chronic [id number] 2009 chronic 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, resolved [facility] Work Phone: Evaluation note* Diagnosis Onset Date Resolution Status Mitral valve insufficiency a cute PAD (peripheral artery disease) acute Atherosclerotic heart diseas e of [place] coronary artery without angina pectoris chronic Atrial fibrillation and flutter chronic Essential hypertension chron ic Hyperlipidemia [facility] Work Phone: Evaluation note* Diagnosis Onset Date Resolution Status Mitral valve insufficiency a cute PAD (peripheral artery disease) acute Atherosclerotic heart diseas e of [place] coronary artery without angina pectoris chronic Atrial fibrillation and flutter chronic Essential hypertension chron ic Hyperlipidemia chronic Acute renal insufficiency [place] Elevated troponin acute Fever acute Generalized weakness acute Pancytopenia acute Pneumonia acute Skin tear acute Chronic kidney insufficiency [facility] Work Phone: Evaluation note* Diagnosis Onset Date Resolution Status Mitral valve insufficiency a cute PAD (peripheral artery disease) acute Atherosclerotic heart diseas e of [place] coronary artery without angina pectoris chronic Atrial fibrillation and flutter chronic Essential hypertension chron ic Hyperlipidemia chronic Acute renal insufficiency [place] Bacteremia acute Elevated troponin acute Fever acute Generalized weakness acute Pancytopenia acute Pneumonia acute Skin tear acute Atrial fibrillation chronic Chronic kidney disease (CKD) chronic Chronic kidney insufficiency chronic [facility] Work Phone: Evaluation note* Diagnosis Onset Date Resolution Status Mitral valve insufficiency a cute PAD (peripheral artery disease) acute Atherosclerotic heart diseas e of [place] coronary artery without angina pectoris chronic Atrial fibrillation and flutter chronic Essential hypertension chron ic Hyperlipidemia chronic Acute renal insufficiency [place] Pancytopenia acute Skin tear acute Atrial fibrillation chronic Chronic kidney insufficiency chronic Bacteremia resolved Generalized weakness resolve d Pneumonia resolved Acute diastolic (congestive) heart failure acute Acute kidney injury acute Alcohol dependence acute Atrial fibrillation acute Coronary artery disease acut e Debility acute Hyperlipidemia acute Hypothyroidism acute Iron deficiency anemia acute Pancytopenia acute Ulcerative colitis acute Hypertension chronic Bacteremia resolved Pneumonia resolved [facility] Work Phone: Evaluation note* Diagnosis Onset Date Resolution Status Mitral valve insufficiency a cute PAD (peripheral artery disease) acute Atherosclerotic heart diseas e of [place] coronary artery without angina pectoris chronic Atrial fibrillation and flutter chronic Essential hypertension chron ic Hyperlipidemia chronic Acute renal insufficiency [place] Pancytopenia acute Skin tear acute Atrial fibrillation chronic Chronic kidney insufficiency chronic Bacteremia resolved Generalized weakness resolve d Pneumonia resolved Acute diastolic (congestive) heart failure acute Acute kidney injury acute Acute renal insufficiency [place] Alcohol dependence acute Anemia acute Atrial fibrillation chronic Coronary artery disease acut e Debility acute Hyperlipidemia acute Hypothyroidism acute Iron deficiency anemia acute Pancytopenia acute Ulcerative colitis acute Hypertension chronic Bacteremia resolved Pneumonia resolved [facility] Work Phone: Evaluation note* Diagnosis Onset Date Resolution Status Mitral valve insufficiency a cute PAD (peripheral artery disease) acute Atherosclerotic heart diseas e of [place] coronary artery without angina pectoris chronic Atrial [...] solved Bacteremia resolved Pancytopenia resolved Pneumonia resolved [facility] Work Phone: Evaluation note* Diagnosis Intracranial hemorrhage (HCC)- Primary Unspecified intracranial hemorrhage [facility] Diagnosis Onset Date Resolution Status Mitral valve insufficiency a cute PAD (peripheral artery disease) acute Atherosclerotic heart diseas e of [place] coronary artery without angina pectoris chronic Atrial [...] disease) acute Atherosclerotic heart diseas e of [place] coronary artery without angina pectoris chronic Atrial fibrillation and flutter chronic Essential hypertension chron ic Hyperlipidemia [facility] Work Phone: Evaluation note* Diagnosis Onset [...] disease) acute Atherosclerotic heart diseas e of [place] coronary artery without angina pectoris chronic Atrial fibrillation and flutter chronic Essential hypertension chron ic Hyperlipidemia chronic [facility] Work Phone: Evaluation note* Diagnosis Onset Date Resolution Status Mitral valve insufficiency a cute PAD (peripheral artery disease) acute Atherosclerotic heart diseas e of [place] coronary artery without angina pectoris chronic Atrial fibrillation and flutter chronic Essential hypertension chron ic Hyperlipidemia chronic Anemia chronic Pancytopenia chronic Peripheral vascular disease acute 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* Diagnosis Onset Date Resolution Status Mitral valve insufficiency a cute PAD (peripheral artery disease) acute Atherosclerotic heart diseas e of [place] coronary artery without angina pectoris chronic Atrial [...] and midfoot with fat layer 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 [facility] Work Phone: Evaluation note* Diagnosis Onset Date [...] and midfoot with fat layer 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 [facility] Work Phone: Evaluation note* Diagnosis Onset Date [...] and midfoot with fat layer 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 [id number] chronic [facility] Work Phone: Evaluation note* Diagnosis Onset Date [...] and midfoot with fat layer 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 [id number] chronic Debility acute General weakness acute Hyperkalemia acute Palpitations acute [facility] Work Phone: Evaluation note* Diagnosis Onset Date [...] and midfoot with fat layer 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 [id number] chronic Acute respiratory failure with hypoxia acute Anemia acute Aspiration pneumonia acute Debility acute General weakness acute Hyperkalemia acute Hyperlipidemia acute Palpitations acute Pulmonary hypertension acute Severe sinus bradycardia acu te Atherosclerotic heart diseas e of [place] coronary artery without angina pectoris chronic Atrial fibrillation chronic CKD (chronic kidney disease) stage 3, GFR 30-59 ml/min chronic Hypertension chronic Pancytopenia chronic Subclavian artery stenosis, left September, resolved [facility] Work Phone: Evaluation note* Diagnosis Onset Date [...] and midfoot with fat layer 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 [id number] chronic Acute respiratory failure with hypoxia resolved Aspiration pneumonia resolve d Subclavian artery stenosis, left September, resolved [facility] Work Phone: Evaluation note* Diagnosis Onset Date [...] and midfoot with fat layer 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 [id number] chronic Acute respiratory failure with hypoxia resolved Aspiration pneumonia resolve d Subclavian artery stenosis, left September, resolved Anemia chronic Edema acute Peripheral vascular disease acute 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 [id number] chronic [facility] Work Phone: Evaluation note* Diagnosis Onset Date [...] and midfoot with fat layer 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 [id number] chronic Hyperkalemia acute Acute respiratory failure with hypoxia resolved Aspiration pneumonia resolve d Subclavian artery stenosis, left September, resolved Anemia chronic Edema acute [id number] acute Peripheral vascular disease acute 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 [id number] chronic Hyperkalemia acute Iron deficiency anemia acute Anemia chronic Dermatitis acute Edema acute Multiple excoriations acute [id number] chronic [facility] Work Phone: Evaluation note* Diagnosis Onset Date [...] and midfoot with fat layer 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 [id number] chronic Hyperkalemia acute Pancytopenia acute Acute respiratory failure with hypoxia resolved Aspiration pneumonia resolve d Subclavian artery stenosis, left September, resolved Pancytopenia acute Anemia chronic Edema acute [id number] acute Peripheral vascular disease acute 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 [id number] chronic Hyperkalemia acute Iron deficiency anemia acute Anemia chronic Anemia chronic Ulcerative colitis chronic Dermatitis acute Edema acute Multiple excoriations acute [id number] chronic [facility] Work Phone: Evaluation note* Diagnosis Onset Date [...] and midfoot with fat layer 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 [id number] chronic Hyperkalemia acute Pancytopenia acute Acute respiratory failure with hypoxia resolved Aspiration pneumonia resolve d Subclavian artery stenosis, left September, resolved Pancytopenia acute Anemia chronic Edema acute [id number] acute Peripheral vascular disease acute 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 [id number] chronic Hyperkalemia acute Iron deficiency anemia acute Anemia chronic Anemia chronic Ulcerative colitis chronic Dermatitis acute Edema acute Multiple excoriations acute [id number] chronic Cellulitis of right leg acut e [id number] chronic [facility] Work Phone: Evaluation note* Diagnosis Onset Date Resolution Status Edema acute [id number] acute Peripheral vascular disease acute 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 [id number] chronic Hyperkalemia acute Iron deficiency anemia acute Anemia chronic Anemia chronic Ulcerative colitis chronic Dermatitis acute Edema acute Multiple excoriations acute [id number] chronic Cellulitis of right leg acut e [id number] chronic Mitral valve insufficiency a cute PAD (peripheral artery disease) acute Atrial fibrillation and flutter chronic Essential hypertension chron ic Hyperlipidemia chronic Hyperkalemia acute Iron deficiency anemia acute Anemia chronic [facility] Work Phone: Evaluation noteNo assessment information available [facility] Work Phone: History and physical note Author Dr. Alexander [facility] November 29, 2022 4:54am Note Date/Time November 29, 2022 4:47a m [facility] Medical Records Department [address] [place] [address] H&P Exam - Hospitalist 11/29/22 0439 MR#: [id number] Acct: [id number] Name: AMAURY BLANK Rep #:[id number] : 1940 82 From: Jakob Alexander DO PCP: Dr. Rosa Maria Santacruz MD Status:ADM IN Location: [facility] [id number]- 1 HPI - General General Date of [...] hospital service was contacted for further admission. 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 (5) Skin tear: PLAN: [...] 72 hours. Charges/Coding Visit Charges Inpatient E&M: 01612 Init Hosp L3 11/29/22 0454 <Electronically signed by Jakob Alexander DO> Cosigner Signature (if applicable): CC: Dr. Rosa Maria Santacruz MD; Dr. Jakob Alexander DO~ Signed [facility] Work Phone: Reason for referral (narrative)No reason for referral information availableWMansfield Hospital Work Phone: Hospital Course * Kylah Liz MD - 09/21/2020 2:41 PM EDT Images from the original note were not included. Discharge Summary Amaury Blank : 1940 Age: 80 y.o. ADMIT DATE: 09/11/2020 DISCHARGE DATE: 09/21/2020 DISCHARGING SURGEON: Kassandra Davidson MD Office Number: [phone] PRIMARY CARE PHYSICIAN: No primary care provider [...] DISCHARGE MEDICATIONS: Amaury Blank Home Medication Instructions DARIUS:[id number] Printed on:09/21/20 1522 Medication Information amiodarone (CORDARONE) [...] 09/21/2020 3:05 PM EDT 2pm appointment 09/22/2020 [facility]- [address] [facility] [address] New part of building behind [employer] parking lot Ground floor to the left infusion center Stop Date- 10/04/20 Infusion Center will draw Labs (CBC/d, serum creatinine, LFTs) every Friday while on antimicrobials [facility] will call to schedule follow up in [address] chest w/o contrast before the followup appointment [facility]: [phone] * Additional Instructions* Kylah Liz MD - 09/19/2020 Images from the original note were not included. [facility]: Cardiothoracic Surgery [address] [place] (T): #[phone] (F): #[phone] After lung surgery, it is common to [...] or dog food bags, or a vacuum bottle house cleaners supervisor. If your incision is in the front [...] start to have pain. Shoulder Stretch 1. tying in machine operator a doorway and place one arm [...] Ifyou are prescribed oxycodone/acetaminophen (Percocet) or hydrocodone/acetaminophen ([place]/Vicodin) be cautious when taking additional tylenol. No [...] at most local grocery stores, pharmacies, and [employer]-stores. If you have any questions about your [...] Canned vegetables, unless labeled sodium-free or low-sodium. Nepalese fries, pizza, tacos, and other fast foods. Pickles, olives, ketchup, and other condiments, especially soy sauce, unless labeled sodium-free orlow-sodium. Where can you learn more? Go to https://Open CSpeKE2 Therm Solutionseb.Dimple Dough.org and sign in to your [employer] account. Enter V843 in the Search Health Information box to learn more about Low Sodium Diet (2,000 Milligram): Care Instructions. If you do not have an account, please click on the Sign Up Now link. Current as of: June 15, 2020 Content Version: 12.8 [employer]. Care instructions adapted under license by [employer]. If you have questions about a medical condition or this instruction, always ask your healthcare professional. [employer] disclaims any warranty or liability for your use of this information. 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 - 1940 Room Number - [id number] N - [id number] Date of Admission - 09/11/2020 8:15 PM [...] no growth IMAGING: reviewed Sha Downs MD [facility] ID Pager: [phone] 09/21/2020 10:20 AM * Kylah Liz MD [...] This note may have been dictated using ThinkVine Practice Edition 2.6 and/or DiObex Voice Recognition Feature. The document was proofread; however, unrecognized voice recognition practice business asst errors may be present. Associated attestation - Kassandra Davidson MD - 09/21/2020 7:15 AM EDT DOS: 09/21/2020 I personally performed a face to face diagnostic evaluation on this patient. I agree with the findings and plan of care as documented by the resident/MULTIPLE GAMES DEALER/BURN OUT TENDER LACE/PA, unless otherwise noted. Kassandra Davidson MD Cardiothoracic Surgery * Orlando Goetz MD - 09/20/2020 7:10 PM EDT [facility] Progress Note SUBJECTIVE: Patient denies [...] medical history of Atrial fibrillation/flutter ([facility]), CAD (coronary artery disease), History of [...] Ambulation Assistance: Independent Transfer Assistance: Independent Active School Boat Driver: Yes Mode of Transportation: Car Occupation: Retired [...] Plan of Care supervision is transferred to [facility] Occupational Therapist. Goals and/or treatment plan was established in collaboration with patient/family/other representatives. Lima Obrien OTR/L * Jus Brizuela - 09/20/2020 9:51 AM EDT Physical Therapy Facility/Department: [facility] Re-evaluation NAME: Amaury Blank [...] therapy services to improve endurance and implement senior care exercise program. Prognosis: Good Decision Making: Medium [...] Ambulation Assistance: Independent Transfer Assistance: Independent Active School Boat Driver: Yes Mode of Transportation: Car Occupation: Retired [...] - 09/20/2020 8:11 AM EDT Progress Note [facility] Patient - Amaury Blank, Age - 80 y.o. - 1940 Room Number - [id number] N - [id number] [facility] # - [id number] Date of Admission - 09/11/2020 8:15 PM [...] no growth IMAGING: reviewed Sha Downs MD [facility] ID Pager: [phone] 09/20/2020 8:11 AM * Kylah Liz MD [...] I/O: Date 09/20/20 0000 - 09/20/202358 Shift 1879-1232 9569-1556 [id number] 24 Hour Total INTAKE P.O.(mL/kg/hr) 200(0.3) 200 [...] This note may have been dictated using ThinkVine Practice Edition 2.6 and/or DiObex Voice Recognition Feature. The document was proofread; however, unrecognized voice recognition practice business asst errors may be present. Associated attestation - Kassandra Davidson MD - 09/20/2020 11:56 AM EDT DOS: 09/20/2020 I personally performed a face to face diagnostic evaluation on this patient. I agree with the findings and plan of care as documented by the resident/MULTIPLE GAMES DEALER/BURN OUT TENDER LACE/PA, unless otherwise noted. Kassandra Davidson MD Cardiothoracic [...] Adelaida Frankel MD General Surgery PGY-4 Pager [phone] * Orlando Goetz MD - 09/19/2020 4:03 PM EDT [facility] Progress Note SUBJECTIVE: Patient denies [...] - 09/19/2020 10:47 AM EDT Progress Note [facility] Patient - Amaury Blank, Age - 80 y.o. - 1940 Room Number - [id number] Date of Admission - 09/11/2020 8:15 PM [...] no growth IMAGING: reviewed Sha Downs MD [facility] ID Pager: [phone] 09/19/2020 10:47 AM * Kylah Liz MD [...] Date 09/19/20 0000 - 09/19/20 2359 Shift [id number] [id number] 24 Hour Total INTAKE I.V.(mL/kg) 750(8.6) 800(9.2) [...] Pain control with scheduled Tylenol / Dilaudid ENGINEER FIRST ASSISTANT. - Pain management following. Appreciate recommendations. - [...] This note may have been dictated using Gaming[employer]f Medical Practice Edition 2.6 and/or DiObex Voice Recognition Feature. The document was proofread; however, unrecognized voice recognition practice business asst errors may be present. Associated attestation - Kassandra Davidson MD - 09/20/2020 7:32 AM EDT DOS: 09/19/20 I personally performed a face to face diagnostic evaluation on this patient. I agree with the findings and plan of care as documented by the resident/MULTIPLE GAMES DEALER/BURN OUT TENDER LACE/PA, unless otherwise noted. Kassandra Davidson MD Cardiothoracic Surgery * Sha Downs MD - 09/18/2020 5:04 PM EDT Progress Note [facility] Patient - Amaury Blank, Age - 80 y.o. - 1940 [id number] Date of Admission - 09/11/2020 8:15 PM [...] reviewed [facility] Pager: [phone] 09/18/2020 5:08 PM I have seen and examined the patient independently. I fully agree with the above note as documentedby AUDI Sy ID Pager: [phone] 09/18/2020 5:54 PM * Orlando Goetz MD - 09/18/2020 3:27 PM EDT [facility] Progress Note SUBJECTIVE: Patient denies [...] PRN per primary Coy Otoole APRN - BURN OUT TENDER [employer] 09/18/2020 3:27 PM I have discussed the care of Amaury Calvin Blank with BURN OUT TEND[employer] L[employer]. I have personally taken a history, examinedthe [...] included. Hospitalist Progress Note 09/18/2020 10:54 AM [phone]: Please page me for patient care issues. [phone]: Please page [facility] night Hospitalist for any issues. Subjective: Admit Date: 09/11/2020 PCP: No primary care provider on file. Room#: [id number] Interval History: Feels ok Still sig sob [...] be monitored and followed by the diet scale technician. * Fabiola Jo OT - 09/18/2020 [...] Date 09/18/20 0000 - 09/18/20 2359 Shift 9935-4273 [phone] 24 Hour Total INTAKE Shift Total(mL/kg) OUTPUT [...] This note may have been dictated using ThinkVine Practice Edition 2.6 and/or DiObex Voice Recognition Feature. The document was proofread; however, unrecognized voice recognition practice business asst errors may be present. Associated attestation - Kassandra Davidson MD - 09/18/2020 3:27 PM EDT DOS: 09/18/2020 I personally performed a face to face diagnostic evaluation on this patient. I agree with the findings and plan of care as documented by the resident/MULTIPLE GAMES DEALER/BURN OUT TENDER LACE/PA, unless otherwise noted. Kassandra Davidson MD Cardiothoracic Surgery * Sha Downs MD - 09/17/2020 6:35 PM EDT Progress Note [facility] Patient - Amaury Blank, Age - 80 y.o. - 1940 Room Number - [id number] N - [id number] Date of Admission - 09/11/2020 8:15 PM [...] CT chest 09/13 reviewed Sha Downs MD [place] [facility] Pager: [phone] 09/17/2020 6:35 PM * Delmy Brush DO - 09/17/2020 11:49 AM EDT [facility] [address] [place] [address] Progress Note Subjective: Patient seen [...] included. Hospitalist Progress Note 09/17/2020 11:42 AM [phone]: Please page me for patient care issues. [phone]: Please page [facility] night Hospitalist for any issues. Subjective: Admit Date: 09/11/2020 PCP: No primary care provider on file. Room#: [id number] Interval History: Patient seen and examined No [...] kg/m I/O: Date 09/17/20 0000 - 09/17/20 7376 Shift 0204-5288 8620-4079 6463-4919 24 Hour Total INTAKE Shift Total(mL/kg) OUTPUT [...] This note may have been dictated using ThinkVine Practice Edition 2.6 and/or DiObex Voice Recognition Feature. The document was proofread; however, unrecognized voice recognition practice business asst errors may be present. Associated attestation - Kassandra Davidson MD - 09/17/2020 9:33 AM EDT DOS: 09/17/2020 I personally performed a face to face diagnostic evaluation on this patient. I agree with the findings and plan of care as documented by the resident/MULTIPLE GAMES DEALER/BURN OUT TENDER LACE/PA, unless otherwise noted. Kassandra Davidson MD Cardiothoracic Surgery * Sha Downs MD - 09/16/2020 5:49 PM EDT Progress Note [facility] Patient - Amaury Blank, Age - 80 y.o. - 1940 Room Number - [id number] N - [id number] Date of Admission - 09/11/2020 8:15 PM [...] CT chest 09/13 reviewed Sha Downs MD [place] ID Pager: [phone] 09/16/2020 5:49 PM * Delmy Brush DO - 09/16/2020 4:22 PM EDT [facility] [address] [place], [place] [id number] Progress Note Subjective: Patient seen and examined [...] included. Hospitalist Progress Note 09/16/2020 11:22 AM [phone]: Please page me for patient care issues. [phone]: Please page [facility] night Hospitalist for any issues. Subjective: Admit Date: 09/11/2020 PCP: No primary care provider on file. Room#: [id number] Interval History: Patient seen and examined No [...] Date 09/16/20 0000 - 09/16/20 2359 Shift 6555-2241 9577-0916 3069-4921 24 Hour Total INTAKE P.O.(mL/kg/hr) 300(0.4) 300 [...] 09/08. - Cardiac diet as tolerated - YMRON improving. Creatinine 1.99 from 2.27. Nephrology following. [...] This note may have been dictated using ThinkVine Practice Edition 2.6 and/or DiObex Voice Recognition Feature. The document was proofread; however, unrecognized voice recognition practice business asst errors may be present. Associated attestation - Kassandra Davidson MD - 09/16/2020 6:00 PM EDT DOS: 09/16/2020 I personally performed a face to face diagnostic evaluation on this patient. I agree with the findings and plan of care as documented by the resident/MULTIPLE GAMES DEALER/BURN OUT TENDER LACE/PA, unless otherwise noted. Kassandra Davidson MD Cardiothoracic Surgery * Marleny Weston RN - 09/15/2020 6:06 PM EDT Son Kasi([phone])called and given update. He would like to be contacted in regards to discharge planning. He or his brother James([phone]) will be helping the patient out at home. * Erasmo Schrader MD - 09/15/2020 5:12 PM EDT [facility] [address] [place] [address] Progress Note Subjective: Patient seen [...] 80 y.o. - 1940 Room Number - [id number] N - [id number] Date of Admission - 09/11/2020 8:15 PM [...] CT chest 09/13 reviewed Sha Downs MD [place] ID Pager: [phone] 09/15/2020 2:29 PM * Genesis Wayne - 09/15/2020 1:15 PM EDT Physical Therapy Facility/Department: [facility] Initial Assessment NAME: Amaury Blank : [...] medical history of Atrial fibrillation/flutter ([facility]), CAD (coronary artery disease), History of GI bleed, Hypertension, and UC (ulcerative colitis) ([facility]). has a past surgical history that [...] Ambulation Assistance: Independent Transfer Assistance: Independent Active School Boat Driver: Yes Mode of Transportation: Car Occupation: Retired [...] 26 Transfer Plan of care over to [facility] Physical Therapy staff. Goals and/or treatment plan [...] included. Hospitalist Progress Note 09/15/2020 1:11 PM [phone]: Please page me for patient care issues. [phone]: Please page [facility] night Hospitalist for any issues. Subjective: Admit Date: 09/11/2020 PCP: No primary care provider on file. Room#: [id number] Interval History: Patient seen and examined No [...] of Hospitalist Medicine Inpatient Medical Services PAGER: [phone] * Kylah Liz MD - 09/15/2020 4:29 [...] kg/m I/O: Date 09/15/20 0000 - 09/15/20 2353 Shift 5936-1207 4776-2973 9498-0401 24 Hour Total INTAKE P.O.(mL/kg/hr) 450(0.7) 450 Shift Total(mL/kg) 450(5.5) 450(5.5) OUTPUT Chest Tube 584 326 6858 Shift Total(mL/kg) 600(7.4) 440(5.4) 1040(12.8) Weight (kg) [...] This note may have been dictated using ThinkVine Practice Edition 2.6 and/or DiObex Voice Recognition Feature. The document was proofread; however, unrecognized voice recognition practice business asst errors may be present. Associated attestation - Kassandra Davidson MD - 09/16/2020 5:45 PM EDT DOS: 09/15/20 I personally performed a face to face diagnostic evaluation on this patient. I agree with the findings and plan of care as documented by the resident/MULTIPLE GAMES DEALER/BURN OUT TENDER LACE/PA, unless otherwise noted. Kassandra Davidson MD Cardiothoracic Surgery * Erasmo Schrader MD - 09/14/2020 1:26 PM EDT [facility] [address] [place] [address] Progress Note Subjective: Patient seen [...] - 09/14/2020 12:29 PM EDT Progress Note [facility] Patient - Amaury Blank, Age - 80 y.o. - 1940 Room Number - [id number] N - [id number] Date of Admission - 09/11/2020 8:15 PM [...] CT chest 09/13 reviewed Sha Downs MD [facility] ID Pager: [phone] 09/14/2020 12:29 PM * Alessio Robertson MD - 09/14/2020 7:59 AM EDT Images from the original note were not included. Hospitalist Progress Note 09/14/2020 7:59 AM [phone]: Please page me for patient care issues. [phone]: Please page [facility] night Hospitalist for any issues. Subjective: Admit Date: 09/11/2020 PCP: No primary care provider on file. Room#: [id number] Interval History: Patient seen and examined No [...] of Hospitalist Medicine Inpatient Medical Services PAGER: [phone] * Cesario Ruffin RN - 09/14/2020 6:36 [...] Date 09/14/20 0000 - 09/14/20 2359 Shift 5212-2799 3021-4442 5348-9601 24 Hour Total INTAKE P.O.(mL/kg/hr) 500 500 [...] This note may have been dictated using GamingTurf Medical Practice Edition 2.6 and/or DiObex Voice Recognition Feature. The document was proofread; however, unrecognized voice recognition practice business asst errors may be present. Associated attestation - Kassandra Davidson MD - 09/14/2020 10:32 AM EDT DOS: 09/14/2020 I personally performed a face to face diagnostic evaluation on this patient. I agree with the findings and plan of care as documented by the resident/MULTIPLE GAMES DEALER/BURN OUT TENDER LACE/PA, unless otherwise noted. Good response to alteplase [...] - 09/13/2020 2:56 PM EDT Progress Note [facility] Patient - Amaury Blank, Age - 80 y.o. - 1940 Room Number - [id number] [id number] Date of Admission - 09/11/2020 8:15 PM [...] CT chest 09/13 reviewed Sha Downs MD [place] ID Pager: [phone] 09/13/2020 2:57 PM * Erasmo Schrader MD - 09/13/2020 2:12 PM EDT [facility] [address] [place] [address] Progress Note Subjective: Patient seen and examined [...] be monitored and followed by the diet scale technician. MERARY Lara * Alessio Robertson MD - 09/13/2020 9:16 AM EDT Images from the original note were not included. Hospitalist Progress Note 09/13/2020 9:16 AM [phone]: Please page me for patient care issues. [phone]: Please page [facility] night Hospitalist for any issues. Subjective: Admit Date: 09/11/2020 PCP: No primary care provider on file. Room#: [id number] Interval History: Patient seen and examined No [...] of Hospitalist Medicine Inpatient Medical Services PAGER: [phone] * Kylah Liz MD - 09/13/2020 4:34 [...] Date 09/13/20 0000 - 09/13/20 2359 Shift 6430-7164 [phone] 24 Hour Total INTAKE P.O.(mL/kg/hr) 600 600 [...] This note may have been dictated using ThinkVine Practice Edition 2.6 and/or DiObex Voice Recognition Feature. The document was proofread; however, unrecognized voice recognition practice business asst errors may be present. Associated attestation - Kassandra Davidson MD - 09/13/2020 5:16 PM EDT DOS: 09/13/2020 I personally performed a face to face diagnostic evaluation on this patient. I agree with the findings and plan of care as documented by the resident/MULTIPLE GAMES DEALER/BURN OUT TENDER LACE/PA, unless otherwise noted. Kassandra Davidson MD Cardiothoracic Surgery * Shahnaz Cooper [facility] - 09/12/2020 12:50 PM EDT Infectious Diseases [...] obtained. Patient assisted to CT table . environmental monitoring technician on.# 12 pigtail drain to [facility] [...] included. Hospitalist Progress Note 09/12/2020 8:28 AM [phone]: Please page me for patient care issues. [phone]: Please page [facility] night Hospitalist for any issues. Subjective: Admit Date: 09/11/2020 PCP: No primary care provider on file. Room#: [id number]/[id number] Interval History: Patient seen and examined No [...] showed large rightsided pleural effusion Transferred from [facility]. Patient initially presented with shortness of breath workup consistent with large right-sided pleural effusion, status post thoracentesis- drained 1.9 L of fluid, there was a concern for purulent drainage effusion/empyema. LDH greater than 4000, total protein 1.7. He was on Zosyn, vancomycin, case was discussed with cardio- thoracic surgery team at [facility] and was transferred for further treatment. His creatinine on admission to [facility] was 2.3 Denies any chest pain, [...] of Hospitalist Medicine Inpatient Medical Services PAGER: [phone] documented in this encounter* Delmy Brush DO [...] 5 mg bid unless decreased by your fruit grader. 60 tablet 0 atorvastatin (LIPITOR) 40 MG [...] Diagnosis Date Noted Atrial fibrillation (HCC) 10/02/2020 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 Parapneumonic effusion 09/12/2020 [...] UO -Cr stable -ok for discharge from [facility], will arrange follow up in our [place] office 2. Volume- much improved per patient,tolerated diuresis with ethacrynic acid Has allergy to po Lasix and Bumex 3. Hypomagnesmia- Mg low at 1.3 this AM, replete x1 ASSESSMENT/PLAN: Delmy Brush DO 10/07/2020 12:41 PM * Anna Baldwin MD - 10/07/2020 8:14 AM EDT Progress Note [facility] Patient - Amaury Blank, Age - 80 y.o. - 1940 Room Number - [id number] N - [id number] Date of Admission - 10/02/2020 8:58 PM [...] Patient Active Problem List Diagnosis Parapneumonic effusion MCC (current) use of antibiotics Atrial fibrillation (HCC) Anna Baldwin MD 8:14 AM 10/07/20 * Vivi Calixto, CORN PICKER - BURN OUT TENDER LACE - 10/07/2020 7:52 AM EDT Images from [...] List Diagnosis Code Parapneumonic effusion J18.9, J91.8 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 Z79.2 Atrial fibrillation [...] This note may have been dictated using GamingTurf Medical Practice Edition 2.6 and/or DiObex Voice Recognition Feature. The document was proofread, however unrecognized voice recognition practice business asst errors may be present. 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 Cognition Cognition Overall Cognitive Status: Exceptions Following [...] place: No G-Code OutComes Score AM-PAC Score [facility] Inpatient Mobility Raw Score : 20 (10/06/201802) [facility] Inpatient T-Scale Score : 47.67 [...] Plan of Care supervision is transferred to [facility] Rehab Department Physical Therapist. * Fabiola [...] Hypertension, and UC (ulcerative colitis) ([facility]). 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 Objective Vision: Impaired Vision Exceptions: Wears glasses [...] Plan of Care [facility] to [facility] Therap[facility]. Goals and/or treatment plan was established in collaboration with patient/family/other representatives. This provider wore an N95 mask, goggles, and gloves for duration of session. Fabiola Jo OTR/L * Lauryn Sierra, CORN PICKER - BURN OUT TENDER LACE - 10/06/2020 1:05 PM EDT CARDIOLOGY PROGRESS [...] ERO: 0.2 cm^2. RECOMMENDATIONS: Proceed with DCCV. [id number] Score for Atrial Fibrillation Stroke Risk Risk Factors Component Value C CHF No 0 H HTN No 0 A2 Age >= 75 Yes, (80 y.o.) 2 D DM No 0 S2 Prior Stroke/TIA No 0 V Vascular Disease No 0 A Age 65-74 No, (80 y.o.) 0 Sc Sex male 0 [id number] Score 2 Score last updated 10/06/20 1:11 [...] CT output: 80 Last recorded/verified vitals in [facility] BP 139/71 Pulse 101 Temp 98.1 F [...] List Diagnosis Code Parapneumonic effusion J18.9, J91.8 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 Z79.2 Atrial fibrillation [...] This note may have been dictated using GamingTurf Medical Practice Edition 2.6 and/or DiObex Voice Recognition Feature. The document was proofread, however unrecognized voice recognition practice business asst errors may be present. * Afshan Pfeiffer MD - 10/06/2020 9:43 AM EDT Images from the original note were not included. Hospitalist Progress Note 10/06/2020 9:43 AM [phone]: Please page me for patient care issues. [phone]: Please page [facility] night Hospitalist for any issues. Subjective: Admit Date: 10/02/2020 PCP: No primary care provider on file. Room#: 6108/[id number] I was wearing N95 mask throughout the [...] included. Hospitalist Progress Note 10/05/2020 4:14 PM [phone]: Please page me for patient care issues. [phone]: Please page [facility] night Hospitalist for any issues. Subjective: Admit Date: 10/02/2020 PCP: No primary care provider on file. Room#: [id number] I was wearing N95 mask throughout the [...] answer. Estimated Daily Nutrient Needs: Energy (kcal): 2893-5188 kcal/day; Weight Used for Energy Requirements: [place] Protein (g): 62-78 gm protein/day, monitor renal function; Weight Used for Protein Requirements: [place](0.8-1.0 gm protein/kg) Fluid (ml/day): Per MD; Method [...] last 72 hours. 10/04/20 NT pro BNP 28818 Wounds: (right buttocks stage 3) Current Nutrition Therapies: DIET CARDIAC; Daily Fluid Restriction: 1500 ml Anthropometric Measures: Height: 5' 11 (180.3 cm)(per chart) Current Body Weight: 179 lb (81.2 kg) Admission Body Weight: 202 lb (91.6 kg)(bedscale) Usual Body Weight: (pt reports weight stable CAMP HEAD COUNSELOR (despite some fluid gain); per EPIC: 11/12/19- 183#) [place] Body Weight: 172 lbs; Nutrition Interventions: Food [...] List Diagnosis Code Parapneumonic effusion J18.9, J91.8 MCC (current) use of antibiotics Z79.2 Atrial fibrillation [...] This note may have been dictated using ThinkVine Practice Edition 2.6 and/or DiObex Voice Recognition Feature. The document was proofread, however unrecognized voice recognition practice business asst errors may be present. * Afshan Pfeiffer MD - 10/04/2020 1:06 PM EDT Images from the original note were not included. Hospitalist Progress Note 10/04/2020 1:06 PM [phone]: Please page me for patient care issues. [phone]: Please page [facility] night Hospitalist for any issues. Subjective: Admit Date: 10/02/2020 PCP: No primary care provider on file. Room#: 6108/[id number] I was wearing N95 mask throughout the [...] Gonzalez MD. Fellow, Cardiovascular Disease. PGY . [phone] Associated attestation - Lucia Carrington MD - [...] CT output: 400 Last recorded/verified vitals in [facility] BP (!) 162/79 Pulse 70 Temp 98.9 [...] List Diagnosis Code Parapneumonic effusion J18.9, J91.8 MCC (current) use of antibiotics Z79.2 Atrial fibrillation [...] This note may have been dictated using ThinkVine Practice Edition 2.6 and/or DiObex Voice Recognition Feature. The document was proofread, however unrecognized voice recognition practice business asst errors may be present. * Alexia Montiel RN - 10/03/2020 2:46 PM EDT Patient arrived to CT department from [facility] for right chest tube placement. Dr. White in to discuss procedure with patient and informed consent obtained. Patient assisted to CT table and placed supine. environmental monitoring technician on. 10.2 fr catheter placed right anterior chest wall. 400 cc cody colored fluid removed. Chest tube secured with suture and pneumostat chest drain valve placed on end. Area dressed with Stay fix and tegaderm Patient tolerated procedure well. Report called and patient transferred to [facility]. * Afshan Pfeiffer MD - 10/03/2020 11:08 AM EDT Images from the original note were not included. Hospitalist Progress Note 10/03/2020 11:08 AM [phone]: Please page me for patient care issues. [phone]: Please page [facility] night Hospitalist for any issues. Subjective: Admit Date: 10/02/2020 PCP: No primary care provider on file. Room#: [id number] I was wearing N95 mask throughout the [...] Calvin Blank was ordered Zinc Gluconate. Per [facility] Policy #4005, herbals and certain [...] Other specified forms of effusion, except tuberculous 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 Diagnosis Hydropneumothorax- Primary Other specified forms of effusion, except tuberculous Parapneumonic effusion Other specified forms of effusion, except tuberculous CKD (chronic kidney disease), stage IV (HCC) Chronic kidney disease, Stage IV (severe) Macrocytic anemia Unspecified deficiency anemia 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 Atrial fibrillation (HCC) [...] Will Yes July 25 10:52am Power of Dinner Cook Yes July 25, 2021 10:52am Advance Directive Response Recorded Date/ Time Name of Medical Power of Dinner Cook kasi eddy May 20, 2022 4:00pm Advance Directives Yes April 11:00am Living Will Yes May 20, 2 022 4:00pm Power of Dinner Cook Yes May 20, 2022 4:00pm Advance Directive Response Recorded Date/ Time Advance Directives Yes April 12:00pm Living Will Yes May 20, 2 022 5:00pm Power of Dinner Cook Yes May 20, 2022 5:00pm Advance Directive Response Recorded Date/ Time Name of Medical Power of Dinner Cook November 29, 2022 1:42am Advance Directives Yes April 12:00pm Living Will Yes November 29, 2022 1 :42am Power of Dinner Cook Yes November 29, 2022 1:42am Advance Directive Response Recorded Date/ Time Name of Medical Power of Dinner Cook . November 29, 2022 5:23am Advance Directives Yes April 12:00pm Living Will Yes November 29, 2022 5 :23am Power of Dinner Cook Yes November 29, 2022 5:23am Advance Directive Response Recorded Date/ Time Name of Medical Power of Dinner Cook . November 29, 2022 5:23am Name of Medical Power of Dinner Cook Jus and Kasi Blank, both son's December 04, 2022 3:50pm Advance Directives Yes April 12:00pm Living Will Yes December 04, 2022 3 :50pm Power of Dinner Cook Yes December 04, 2022 3:50pm Advance Directive Response Recorded Date/ Time Name of Medical Power of Dinner Cook . November 29, 2022 5:23am Name of Medical Power of Dinner Cook Jus and Kasi Blank, both son's December 04, 2022 3:50pm Advance Directives Yes April 12:00pm Living Will Yes December 20, 2022 11:21am Power of Dinner Cook Yes December 20 11:21am Advance Directive Response Recorded Date/ Time Name of Medical Power of Dinner Cook . November 29, 2022 5:23am Name of Medical Power of Dinner Cook Jus and Kasi Blank, both son's December 04, 2022 3:50pm Name of Medical Power of Dinner Cook SON December 20, 2022 11:21am Advance Directives Yes April 12:00pm Living Will Yes December 20, 2022 11:21am Power of Dinner Cook Yes December 20 11:21am Advance Directive Response Recorded Date/ Time Name of Medical Power of Dinner Cook . November 29, 2022 5:23am Name of Medical Power of Dinner Cook Jus and Kasi Blank, both son's December 04, 2022 3:50pm Name of Medical Power of Dinner Cook SON December 20, 2022 11:21am Name of Medical Power of Dinner Cook Kasi and Jus Blank January 03, 2023 6:43am Advance Directives Yes April 12:00pm Living Will Yes January 03, 2023 6 :43am Power of Dinner Cook Yes January 03, 2023 6:43am Latest Code Status on File Code Status Date Activated Date Inactivated Comments DNR-CCA 01/06/2023 1:46 PM 01/09/2023 4:42 PM Question Answer Comments DNR Order Discussed With: Patient Advance Directive Response Recorded Date/ Time Name of Medical Power of Dinner Cook Kasi and Jus Blank January 03, 2023 6:43am Advance Directives Yes April 12:00pm Living Will Yes January 03, 2023 6 :43am Power of Dinner Cook Yes January 03, 2023 6:43am Latest Code Status on File Code Status Date Activated Date Inactivated Comments DNR-CCA 01/06/2023 1:46 PM 01/09/2023 4:42 PM Question Answer Comments DNR Order Discussed With: Patient Advance Directive Response Recorded Date/ Time Advance Directives Yes April 11:00am Living Will Yes January 03, 2023 5 :43am Power of Dinner Cook Yes January 03, 2023 5:43am Advance Directive Response Recorded Date/ Time Advance Directives Yes April 11:00am Living Will No June 06 4:25pm Power of Dinner Cook No June 06, 2023 4:25pm Advance Directive Response Recorded Date/ Time Advance Directives Yes April 11:00am Living Will No June 20, 023 8:26am Power of Dinner Cook No June 20, 2023 8:26am Advance Directive Response Recorded Date/ Time Advance Directives Yes April 12:00pm Living Will No June 20, 023 9:26am Power of Dinner Cook No June 20, 2023 9:26am Advance Directive Response Recorded Date/ Time Name of Medical Power of Dinner Cook cecilia blank November 10, 2023 5:50pm Advance Directives Yes April 12:00pm Living Will Yes November 10, 2023 5 :50pm Power of Dinner Cook Yes November 10, 2023 5:50pm Advance Directive Response Recorded Date/ Time Advance Directives Yes April 12:00pm Advance Directive Response Recorded Date/ Time Living Will Yes May 11 7:05pm Do you have a Healthcare Pow er of Dinner Cook? Yes May 11, 2021 7:05pm Do you have a Healthcare Pow er of Dinner Cook? Yes November 08, 2024 4:17pm Name of Medical Power of Dinner Cook Damon wilhelm Kasi [employer] November 08, 2024 4:17pm Advance Directives Yes April 12:00pm Advance Directive Response Recorded Date/ Time Living Will Yes May 11 7:05pm Do you have a Healthcare Pow er of Dinner Cook? Yes May 11, 2021 7:05pm Do you have a Healthcare Pow er of Dinner Cook? Yes November 08, 2024 4:17pm Name of Medical Power of Dinner Cook Damon and Kasi Gordillo November 08, 2024 4:17pm Do you have a Healthcare Pow er of Dinner Cook? Yes December 14, 2024 9:04am Name of Medical Power of Dinner Cook BETWEEN 2 BK LUU AND KASI December 14, 2024 9:04am Advance Directives Yes April 12:00pm Advance Directive Response Recorded Date/ Time Living Will Yes May 11, 7:05pm Do you have a Healthcare Pow er of Dinner Cook? Yes May 11, 2021 7:05pm Do you have a Healthcare Pow er of Dinner Cook? Yes November 08, 2024 4:17pm Name of Medical Power of Dinner Cook Damon and Kasi Gordillo November 08, 2024 4:17pm Do you have a Healthcare Pow er of Dinner Cook? Yes December 14, 2024 9:04am Name of Medical Power of Dinner Cook BETWEEN 2 BK LUU AND KASI December 14, 2024 9:04am Advance Directives on File Yes Augus t 2024 7:06am Living Will Yes February 23 7:06am Do you have a Healthcare Pow er of Dinner Cook? Yes February 23, 2025 7:06am Name of Medical Power of Dinner Cook jus son February 23, 2025 7:06am Advance [...] (peripheral artery disease) Atherosclerotic heart disease of [place] coronary artery without angina pectoris Atrial fibrillation and flutter Essential hypertension Hyperlipidemia [id number] Aortocoronary bypass status Mitral valve insufficiency PAD (peripheral artery disease) Atherosclerotic heart disease of [place] coronary artery without angina pectoris Atrial fibrillation and flutter Essential hypertension Hyperlipidemia [id number] Aortocoronary bypass status Chief Complaint 4 M FU Reason for Visit Mitral valve insuffi ciency PAD (peripheral artery disease) Atherosclerotic heart disease of [place] coronary artery without angina pectoris Atrial fibrillation and flutter Essential hypertension Hyperlipidemia Chief Complaint 4 M FU FALL, ELEVATED TROPONIONS, PANCYTOPENIA FALL, ELEVATED TROPONIONS, PANCYTOPENIA Reason for Visit Mitral valve insuffi ciency PAD (peripheral artery disease) Atherosclerotic heart disease of [place] coronary artery without angina pectoris Atrial fibrillation [...] (peripheral artery disease) Atherosclerotic heart disease of [place] coronary artery without angina pectoris Atrial fibrillation [...] (peripheral artery disease) Atherosclerotic heart disease of [place] coronary artery without angina pectoris Atrial fibrillation [...] (peripheral artery disease) Atherosclerotic heart disease of [place] coronary artery without angina pectoris Atrial fibrillation [...] (peripheral artery disease) Atherosclerotic heart disease of [place] coronary artery without angina pectoris Atrial fibrillation [...] (peripheral artery disease) Atherosclerotic heart disease of [place] coronary artery without angina pectoris Atrial fibrillation [...] 2 UNITS PRBC FALL FALL ADMISSION EXAM USP LAB WORK ADMISSION EXAM USP LAB WORK Fall LABWORK READMISSION EXAM LABWORK LAB WORK LAB WORK S/P [facility] 01/09/23 (SCANNED) Reason for Visit Mitral valve insuffi ciency PAD (peripheral artery disease) Atherosclerotic heart disease of [place] coronary artery without angina pectoris Atrial fibrillation [...] (peripheral artery disease) Atherosclerotic heart disease of [place] coronary artery without angina pectoris Atrial fibrillation and flutter Essential hypertension Hyperlipidemia Chief Complaint 4 M FU FALL, ELEVATED TROPONIONS, PANCYTOPENIA FALL, ELEVATED TROPONIONS, PANCYTOPENIA FALL, ELEVATED TROPONIONS, PANCYTOPENIA FALL, ELEVATED TROPONIONS, PANCYTOPENIA FALL, ELEVATED TROPONIONS, PANCYTOPENIA FALL, ELEVATED TROPONIONS, PANCYTOPENIA FALL 2 UNITS PRBC FALL FALL ADMISSION EXAM USP LAB WORK ADMISSION EXAM USP LAB WORK Fall LABWORK READMISSION EXAM LABWORK LAB WORK LAB WORK S/P [facility] 01/09/23 (SCANNED) LAB WORK Reason for Visit Mitral valve insuffi ciency PAD (peripheral artery disease) Atherosclerotic heart disease of [place] coronary artery without angina pectoris Atrial fibrillation [...] (peripheral artery disease) Atherosclerotic heart disease of [place] coronary artery without angina pectoris Atrial fibrillation and flutter Essential hypertension Hyperlipidemia Chief Complaint FALL, ELEVATED TROPO NIONS, PANCYTOPENIA FALL, ELEVATED TROPONIONS, PANCYTOPENIA FALL, ELEVATED TROPONIONS, PANCYTOPENIA FALL, ELEVATED TROPONIONS, PANCYTOPENIA FALL, ELEVATED TROPONIONS, PANCYTOPENIA FALL, ELEVATED TROPONIONS, PANCYTOPENIA FALL 2 UNITS PRBC FALL FALL ADMISSION EXAM USP LAB WORK ADMISSION EXAM USP LAB WORK Fall LABWORK READMISSION EXAM LABWORK LAB WORK LAB WORK S/P [facility] 01/09/23 (SCANNED) LAB WORK LAB WORK [...] (peripheral artery disease) Atherosclerotic heart disease of [place] coronary artery without angina pectoris Atrial fibrillation and flutter Essential hypertension Hyperlipidemia Chief Complaint ADMISSION EXAM USP LAB WORK Fall LABWORK READMISSION EXAM LABWORK LAB WORK LAB WORK S/P [facility] 01/09/23 (SCANNED) LAB WORK LAB WORK LAB WORK LAB WORK LAB WORK LAB WORK LAB WORK LAB WORK LAB WORK LAB WORK 1YR LABS PRIOR([place]) WOUND Reason for Visit Mitral valve insuffi ciency PAD (peripheral artery disease) Atherosclerotic heart disease of [place] coronary artery without angina pectoris Atrial fibrillation and flutter Essential hypertension Hyperlipidemia Anemia Pancytopenia Peripheral vascular disease Non-pressure 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 Chief Complaint LAB WORK S/P [facility] 01/09/23 (SCANNED) LAB WORK LAB WORK LAB WORK LAB WORK LAB WORK LAB WORK LAB WORK LAB WORK LAB WORK LAB WORK 1YR LABS [facility]([place]) WOUND CONSULT-FOOT WOUND LT HEEL WOUND BRUIT OF RT CAROTID, CAD Reason for Visit Mitral valve insuffi ciency PAD (peripheral artery disease) Atherosclerotic heart disease of [place] coronary artery without angina pectoris Atrial fibrillation [...] WORK LAB WORK LAB WORK 1YR LABS PRIOR([place]) WOUND CONSULT-FOOT WOUND LT HEEL BRUIT OF [...] WORK LAB WORK LAB WORK 1YR LABS PRIOR([place]) WOUND CONSULT-FOOT WOUND LT HEEL BRUIT OF [...] heel and midfoot with fat layer exposed [id number] Chief Complaint LAB WORK LAB WORK LAB [...] heel and midfoot with fat layer exposed [id number] Debility General weakness Hyperkalemia Palpitations Chief Complaint [...] heel and midfoot with fat layer exposed [id number] Acute respiratory failure with hypoxia Anemia Aspiration pneumonia Debility General weakness Hyperkalemia Hyperlipidemia Palpitations Pulmonary hypertension Severe sinus bradycardia Atherosclerotic heart disease of [place] coronary artery without angina pectoris Atrial fibrillation [...] heel and midfoot with fat layer exposed [id number] Acute respiratory failure with hypoxia Aspiration pneumonia [...] heel and midfoot with fat layer exposed [id number] Acute respiratory failure with hypoxia Aspiration pneumonia Subclavian artery stenosis, left Anemia Edema Peripheral vascular disease Non-pressure 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 [id number] Chief Complaint CONSULT-FOOT WOUND L T HEEL [...] heel and midfoot with fat layer exposed [id number] Hyperkalemia Acute respiratory failure with hypoxia Aspiration pneumonia Subclavian artery stenosis, left Anemia Edema [id number] Peripheral vascular disease Non-pressure 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 [id number] Hyperkalemia Iron deficiency anemia Anemia Dermatitis Edema Multiple excoriations [id number] Chief Complaint CONSULT-FOOT WOUND L T HEEL [...] heel and midfoot with fat layer exposed [id number] Hyperkalemia Pancytopenia Acute respiratory failure with hypoxia Aspiration pneumonia Subclavian artery stenosis, left Pancytopenia Anemia Edema [id number] Peripheral vascular disease Non-pressure 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 [id number] Hyperkalemia Iron deficiency anemia Anemia Anemia Ulcerative colitis Dermatitis Edema Multiple excoriations [id number] Chief Complaint BRUIT OF RT CAROTID, CAD [...] heel and midfoot with fat layer exposed [id number] Hyperkalemia Pancytopenia Acute respiratory failure with hypoxia Aspiration pneumonia Subclavian artery stenosis, left Pancytopenia Anemia Edema [id number] Peripheral vascular disease Non-pressure 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 [id number] Hyperkalemia Iron deficiency anemia Anemia Anemia Ulcerative colitis Dermatitis Edema Multiple excoriations [id number] Cellulitis of right leg [id number] Chief Complaint WOUND 6WKS LABS H FU WOUND PANCYTOPENIA WOUND 1 Y FU/PREV PFM LABS 12WKS LABS ABNL LABS Reason for Visit Edema [id number] Peripheral vascular disease Non-pressure 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 [id number] Hyperkalemia Iron deficiency anemia Anemia Anemia Ulcerative colitis Dermatitis Edema Multiple excoriations [id number] Cellulitis of right leg [id number] Mitral valve insufficiency PAD (peripheral artery disease) [...] CT HEAD/BRAIN W/O CONTRAST MATERIAL Sergio Sofia, CORN PICKER.BURN OUT TENDER LACE [address] [place] [address] [place] [address] Referral ID Status Reason Start Date Expiration Date V isits Requested Visits Authorized [id number] Closed Auto-Generated Referral Patient Cleared - INN [...] of consciousness status, initial encounter ([facility]) Procedures CT BRAIN WO IVCON CT HEAD/BRAIN W/O CONTRAST MATERIAL Sergio Sofia APRN.BURN OUT TENDER LACE [address] [place] [address] [place] [address] Referral ID Status Reason Start Date Expiration Date V isits Requested Visits Authorized [id number] Closed Auto-Generated Referral Patient Cleared - INN [...] section and content) DATE CREATED AUTHOR 11/07/2020 [facility] DATE CREATED AUTHOR AUTHOR'S ORGANIZ ATION 01/20/2023 [facility] DATE CREATED AUTHOR AUTHOR'S ORGANIZ ATION 01/30/2023 [facility] DATE CREATED AUTHOR AUTHOR'S ORGANIZ ATION 07/05/2023 [facility] ([place]) DATE CREATED AUTHOR AUTHOR'S ORGANIZ ATION 05/12/2025 [facility] Goals (unrecognized section and content) Goals [...] Dr. Lupe Joe DO Emergency Provider Active Data Collection Specialist Relationship Specialty Start Date End Date Elida Borges [address] [place] [phone] PCP - General Cardiology 11/29/14 Data Collection Specialist Relationship Specialty Start Date End Date Elida Borges [address] [place] [phone] PCP - General Cardiology 11/29/14 Team Status: [...] Santacruz MD Referring Provider Active Karey Jordan BURN OUT TENDER LACE, BURN OUT TENDER LACE-C Attending Provider Active Dr. Paco Norman MD Primary Care Provider Active Team Status: Inactive Member Role Status Dates Dr. Rosa Maria Santacruz MD Primary Care Provider Active Honey Enriquez BURN OUT TENDER LACE, BURN OUT TENDER LACE-C Attending Provider Active Team Status: Inactive Member Role Status Dates Dr. Paco Norman MD Primary Care Provider Active Honey Enriquez BURN OUT TENDER LACE, BURN OUT TENDER LACE-C Attending Provider Active Team Status: Inactive Member [...] Warren Sampson , DPM Attending Provider Active Data Collection Specialist Relationship Specialty Start Date End Date Elida Borges [address] [place] [phone] PCP - General Cardiology 11/29/14 Team Status: [...] MD Primary Care Provider Active Dr. Jakob Nwoak , DO Emergency Provider Active Dr. Oniel [...] Bruner MD Other Provider Active Tierney Menendez BURN OUT TENDER LACE, BURN OUT TENDER LACE-C Other Provider Active Team Status: Active Member [...] Bruner MD Other Provider Active Tierney Menendez BURN OUT TENDER LACE, BURN OUT TENDER LACE-C Other Provider Active Team Status: Active Member [...] Bruner MD Other Provider Active Tierney Menendez BURN OUT TENDER LACE, BURN OUT TENDER LACE-C Other Provider Active Dr. Irving Horowitz , [...] Bruner MD Other Provider Active Tierney Menendez BURN OUT TENDER LACE, BURN OUT TENDER LACE-C Other Provider Active Team Status: Active Member [...] Bruner MD Other Provider Active Tierney Menendez BURN OUT TENDER LACE, BURN OUT TENDER LACE-C Other Provider Active Team Status: Inactive Member [...] MD Other Provider Active Tierney Menendez NP, BURN OUT TENDER LACE-C Other Provider Active Team Status: Inactive Member [...] Lai , DO Other Provider Active Dr. aDniel Jimenez MD Other Provider Active Dr. Rufus Bruner MD Other Provider Active Tierney Menendez BURN OUT TENDER LACE, BURN OUT TENDER LACE-C Other Provider Active Team Status: Active Member [...] Bruner MD Other Provider Active Tierney Menendez BURN OUT TENDER LACE, BURN OUT TENDER LACE-C Other Provider Active Dr. Irving Horowitz , [...] MD Other Provider Active Tierney Menendez NP, BURN OUT TENDER LACE-C Other Provider Active Team Status: Active Member [...] Provider, Referrin g Provider Active Karey Jordan BURN OUT TENDER LACE, BURN OUT TENDER LACE-C Attending Provider Active Team Status: Inactive Member [...] 2024 End: November 08, 2024 Dr. Rosa Mraia Santacruz MD Referring Provider Active Start: November [...] 27, 2024 End: December 27, 2024 Dr. Aruelia Umaña MD Referring Provider Active Start: December [...] or prosecute any alcohol or drug abuse patient.[facility] the event this information is protected by the Federal Confidentiality of Alcohol and Drug Abuse Patient Records regulations: The Federal rules restrict any use of the information to criminally investigate or prosecute any alcohol or drug abuse patient.[facility] the event this information is protected by the Federal Confidentiality of Alcohol and Drug Abuse Patient Records regulations: The Federal rules restrict any use of the information to criminally investigate or prosecute any alcohol or drug abuse patient.[facility] FOR RECORDS PERTAINING TO PATIENTS WHO ARE [...] ON THE PRIMARY CLINICAL RECORDS. [facility] [employer] [facility]. provides no warranty or guarantee of the accuracy or completeness of information in this document.
[2025-06-05 03:41] VITALS: BP 138/79; PULSE 73; RESP 16; TEMP 36.7; O2SAT 97
--- NOTE | 2025-06-05 03:41 | ED.RN ---
Son and pt stated they wanted to leave without discharge instructions.
--- NOTE | 2025-06-05 03:56 | ED.VIS.FALL ---
HPI HPI - Fall History of Present Illness Chief Complaint: Fall Narrative Narrative: Patient was seen and examined after presenting to ED for mechanical fall fell states he did not hit his head has a skin tear to his right forearm not on anticoagulation denies having any chest pain or pressure or shortness of breath prior. [facility] Medical History Chronic atrial fibrillation Hypoxia Acute exacerbation of CHF (congestive heart failure) CKD (chronic kidney disease) Kidney disease History of Holter monitoring H/O transesophageal echocardiography (ROSI) for monitoring Multiple excoriations Anemia Pulmonary hypertension Severe sinus bradycardia CKD (chronic kidney disease) stage 3, GFR 30-59 ml/min General weakness Debility Hyperkalemia Palpitations History of edema Elevated troponin Fever Mitral valve insufficiency PAD (peripheral artery disease) Pancytopenia History of right inguinal hernia History of umbilical hernia Wears hearing aid Wears glasses Alcohol use Thyroid disease Walker as ambulation aid High cholesterol Injury of head and neck Dietary restriction History of GI bleed Hx of ulcerative colitis History of stress test History of echocardiogram History of transesophageal echocardiography (ROSI) Cardiology follow-up encounter History of atrial fibrillation Emphysema of lung Hyperlipidemia Hypertension Atrial fibrillation Hypertension Former smoker History of cardioversion (~05/09/20) Subclavian artery stenosis, left (~10/15/19) Essential hypertension Thrombocytopenia Upper GI bleed Atherosclerotic heart disease of [place] coronary artery without angina pectoris Premature atrial contractions 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 Hematemesis/vomiting blood Upper GI bleed History of coronary artery disease Thrombocytopenia Ulcerative colitis Right carotid bruit Hypercholesterolemia Home Medications ?Medication ?Instructions ?Recorded ?Last Taken ?Type ferrous sulfate 325 mg (65 mg 325 mg PO DAILY vitamin 05/28/15 12/26/24 History iron) tablet vitamin B complex 1 each PO DAILY vitamin 02/07/16 12/26/24 History aspirin 81 mg tablet,delayed 81 mg PO MO Anticoagulation 04/14/23 12/20/24 History release zinc acetate 50 mg (zinc) capsule 50 mg PO DAILY Supplement 09/29/23 12/26/24 History hydralazine 50 mg tablet 100 mg (2 x 50 mg) PO BID #360 tabs 02/18/25 02/23/25 Rx amlodipine 10 mg tablet 10 mg PO DAILY #90 tabs 03/14/25 Unknown Rx acetaminophen 325 mg tablet 650 mg (2 x 325 mg) PO Q6H PRN PRN 05/03/25 Unknown Rx Pain 1-10 Or Fever>100.7 #0 tabs bumetanide 2 mg tablet 2 mg PO BID #60 tabs 05/03/25 Unknown Rx potassium chloride 20 mEq 20 meq PO DAILYCM #0 tabs 05/03/25 Unknown Rx tablet,extended release(part/cryst) Allergy/AdvReac Type Severity Reaction Status Date / Time hydrochlorothiazide Allergy Severe Rash Verified 06/05/25 00:39 furosemide (From Lasix) Allergy Severe Verified 06/05/25 00:39 Rash Itchy lovastatin (From Mevacor) Allergy Rash Verified 06/05/25 00:39 Family History Father CAD (coronary artery disease) Mother Cancer breast Surgical History History of coronary artery stent placement S/P umbilical hernia repair, follow-up exam S/P right inguinal hernia repair History of umbilical hernia repair History of right inguinal hernia repair Hx of colonoscopy History of cardiac catheterization Hx of heart bypass surgery Hx of esophagogastroduodenoscopy Hx of CABG History of hand surgery History of vasectomy Aortocoronary bypass status (~02/12/17) Status post insertion of drug-eluting stent into right coronary artery for coronary artery disease (~04/2009) Social History adopted: No household members: spouse housing: house number of children: 2 current occupational status: retired Smoking Status: Former smoker Tobacco: How many years used: 50 how long ago did patient quit smokin years ago alcohol intake: current alcohol intake frequency: 3 or more drinks per day Alcohol type: beer, wine and hard liquor substance use type: does not use caffeine: Yes Type: coffee Number of servings: 2 ROS ROS ED ROS Narrative Pertinent Positives: Mechanical fall right forearm injury Pertinent Negatives: Head injury loss of consciousness vision changes anticoagulation chest pain pressure shortness of breath fevers The remainder of review of systems negative unless otherwise stated in the HPI above. Systems reviewed including constitutional, psychiatric, cardiovascular, respiratory, integument, HENT, gastrointestinal. EXAM Physical Exam Narrative Exam Narrative: Airway is intact bilateral breath sounds appropriate blood pressure normocephalic atraumatic nontender cervical spine nontender chest wall equal breath sounds bilaterally GCS 15 he has a skin tear to his right forearm not amenable to any sort of closure techniques. Intact and equal MSPs hip is stable he was up and ambulatory. Compartments are soft his extremity he had full range of motion nontender completely Const Vital Signs: 06/05/25 00:38 06/05/25 00:41 06/05/25 03:41 Temperature 97.8 F 98.1 F Temperature Source Oral Pulse Rate 59 L 73 Respiratory Rate 14 16 Respiratory Effort Normal Respiratory Depth Normal Respiratory Pattern Normal Blood Pressure 126/58 H 138/79 H Blood Pressure Mean 80 98 Pulse Ox 97 97 Oxygen Delivery Method Room Air Room Air MDM MDM MDM Narrative Medical decision making narrative: Nursing notes, triage notes, available previous documentation, and vital signs were reviewed. Any discrepancies noted were addressed. Differential Diagnoses: Will evaluate for intracranial bleed does not seem to have any prodromal symptoms such as a cardiac cause Imaging Reviewed: Personally reviewed and interpreted by me: CT head I did not see any obvious intracranial bleed the official read is also without acute pathology patient has nontender right forearm and he had full range of motion so we did not order any imaging for his right Previous Documentation Reviewed: None available or applicable at this time. ED Course: Patient presenting with mechanical fall had a skin tear to his right forearm we placed nonadhesive dressing or nonadherent dressing to the area CT of his head was unremarkable patient stable for discharge return precautions follow-up recommendations provided unfortunately because of other critical conditions in the emergency department I was unable to provide them with the discharge paperwork as the patient's son just took him home prior to receiving it. This note was made utilizing voice recognition software. All attempts were made to correct spelling or other errors prior to note completion. However, due to the fast-paced nature of emergency medicine, some errors may still be present. Radiography Diagnostic Testing: Clinical Impression(s) from Imaging Studies Brain CT 06/05/25 00:52 IMPRESSION: No acute intracranial abnormality is present. Redemonstration of the chronic periventricular white matter ischemia and diffuse cerebral involutional changes. [facility] Triage Chief Complaint: Fall Other Complaint: Wound ED Provider: Viji Givens Dx/Rx/DC Orders Clinical Impression: Fall from standing, Skin tear of right forearm without complication Prescriptions: No Action aspirin 81 mg tablet,delayed release (DR/EC) 81 mg PO MO zinc acetate 50 mg (zinc) capsule 50 mg PO DAILY ferrous sulfate 325 MG tablet 325 mg PO DAILY Patient Comments: Iron supplement vitamin B complex 1 EACH capsule 1 each PO DAILY Patient Comments: Vitamin supplement acetaminophen 325 mg Tablet 650 mg PO Q6H PRN PRN (Reason: Pain 1-10 Or Fever>100.7) Qty: 0 0RF bumetanide 2 mg tablet 2 mg PO BID Qty: 60 0RF potassium chloride 20 mEq Tablet,Er Particles/Crystals 20 meq PO DAILYCM Qty: 0 0RF hydralazine 50 mg tablet 100 mg PO BID Qty: 360 3RF amlodipine 10 mg tablet 10 mg PO DAILY Qty: 90 3RF Primary Care Provider: Jakob Jiménez Referrals: Jakob Jiménez MD [Primary Care Provider, Family Practice] Print Language: Citizen Of [place] Disposition Disposition: Home, Self Care Discharge Date/Time: 06/05/25 03:42
== END 2025-06-05 03:42 | disposition home or self-care (01) ==
LOC: ED 00:49
PROVIDERS: Emergency Provider Specialist/Technologist Athletic Trainer; PCP Family Medicine; Visit Provider Specialist/Technologist Athletic Trainer
DX: S51.811A Laceration without foreign body of right forearm, initial encounter (principal); N18.4 Chronic kidney disease, stage 4 (severe); I13.0 Hypertensive heart and chronic kidney disease with heart failure and stage 1 through stage 4 chronic kidney disease, or unspecified chronic kidney disease; I50.9 Heart failure, unspecified; J43.9 Emphysema, unspecified; E78.00 Pure hypercholesterolemia, unspecified; Z87.891 Personal history of nicotine dependence; I25.10 Atherosclerotic heart disease of native coronary artery without angina pectoris; Z95.5 Presence of coronary angioplasty implant and graft; W19.XXXA Unspecified fall, initial encounter
CPT/HCPCS: 70450; 99285

== ENCOUNTER → 2025-06-16 | Outpatient (CLI) | payer MEDICARE, OTHER, SELFPAY ==
[2025-06-16 15:02] LABS: AST(SGOT) 12 U/L (<=37); Alanine Aminotransfer ALT/SGPT 6 U/L (<=46); Albumin, Serum 3.9 g/dL (3.4-4.8); Alkaline Phosphatase 73 U/L (40-129); Anion Gap 16 (5-15); BUN 77 mg/dL (4-19); BUN/Creat Ratio 23.3 RATIO (10-20); Calcium,Total 8.8 mg/dL (7.6-11.0); Carbon Dioxide 22.0 mmol/L (21.0-32.0); Chloride 103 mmol/L (98-108); Globulin 2.3 g/dL (2.2-4.2); Glucose 138 mg/dL (70-99); Potassium 4.1 mmol/L (3.3-5.1); Pro- Brain NATRIURETIC PEPTIDE 25445 pg/mL (<=1800)
== END | disposition home or self-care (01) ==
LOC: HHLAB 12:55
PROVIDERS: PCP Family Medicine; Referring Provider Family Medicine; Visit Provider Family Medicine
DX: I13.0 Hypertensive heart and chronic kidney disease with heart failure and stage 1 through stage 4 chronic kidney disease, or unspecified chronic kidney disease (principal); I50.22 Chronic systolic (congestive) heart failure; N18.9 Chronic kidney disease, unspecified
CPT/HCPCS: 80053; 83880